=== PATIENT | female | born 1990 | race African-American/Black ===

== ENCOUNTER 2023-10-30 12:27 | Outpatient (OUT) | payer MEDICAID, SELFPAY ==
--- NOTE | 2023-10-30 12:31 | US_ITS ---
The [address] [address] Patient Name: FABRIZIO PAINTING MRN: [id number] date: 1990 Sex: F Assigned Patient Location: [facility] Current Patient Location: [facility] Accession/Order Number: [id number] Exam Date: 10/30/2023 12:31 Report Date: 10/30/2023 16:24 At the request of: MELISSA CLARK Procedure: US OB transvaginal EXAMINATION: US OB transvaginal HISTORY: MISSED MENSES COMPARISON: No relevant comparison available. FINDINGS: GESTATIONAL SAC: Present and normal appearing. YOLK SAC: Present and normal appearing. POLE: Present and normal appearing. CARDIAC: Present. UTERUS: Normal size and appearance. OVARIES: Right: Normal. Left: Corpus lutein cyst versus simple cyst. CERVIX: 4.0 cm in length and closed. CUL-DE-SAC: Normal. OTHER: None. AGE BY LMP: 9 weeks 4 days DARLENE BY LMP: 05/30/2024 AGE BY US CRL: 8 weeks 4 days DARLENE BY US CRL: 06/06/2024 US/US OB transvaginal IMPRESSION: 1. Single live intrauterine . Electronically authenticated by: FAM PHELPS Date: 10/30/2023 16:24
== END 2023-10-30 12:28 | disposition home or self-care (01) ==
LOC: NOMS 12:28
PROVIDERS: Visit Provider Obstetrics & Gynecology
DX: Z34.91 Encounter for supervision of normal pregnancy, unspecified, first trimester (principal); Z3A.08 8 weeks gestation of pregnancy; N92.6 Irregular menstruation, unspecified
CPT/HCPCS: 76817

== ENCOUNTER 2023-11-12 13:18 | Outpatient (OUT) | payer MEDICAID, SELFPAY ==
--- OUTSIDE RECORDS SUMMARY | 2023-11-12 13:34 | XMS_ITS | CCD ---
Author Organization [facility] Care Team Providers Care Soda Dialyzer Name Role Phone Agustin Patton Unavailable Unavailable Agustin Patton Unavailable Unavailable Bayron Mccarty Unavailable Unavailable Unavailable Unavailable Unavailable Unavailable Unavailable Unavailable [facility] Primary Care Provider [phone] DEMETRIUS [address] Emergency Provider DR MELISSA CLARK Attending Unavailable DR MELISSA CLARK Consulting Unavailable DR MELISSA CLARK Admitting Unavailable [facility] Primary Care Provider [phone] Anabella [facility] Marychuy E Emergency Provider Nicholas Michaels Unavailable [facility] Primary Care Provider [phone] DO Nicholas Michaels Attending Provider Unavailable Primary Care Provider Unavailabl e Unavailable Primary Care Provider Unavailabl LATONIA Thomas Attending Unavailable TONYA SENIOR Attending Unavailable [facility] Primary Care Provider [phone] Anabella [facility] Marychuy E Emergency Provider Bullsariah Marychuy Amada Attending Unavailable Bullimore, Marychuy Amada Admitting Unavailable [facility] Primary Care Unavaila Nicholas Willams Admitting Unavailable [facility] Primary Care Unavaila Nicholas Willams Attending Unavailable LATONIA GREENE Referring Unavailable LATONIA GREENE Attending Unavailable ANNA ORTIZ Attending Unavailable TONYA SENIOR Referring Unavailable TONYA SENIOR Referring Unavailable Medications Current Medications Medication Drug Class(es) Dates Sig (Normalized) Sig (Original) cholecalciferol 1.25 mg oral capsule (4 sources) Vitamin D Start: 09-23-2023 take 1 capsule by mouth every week cholecalciferol, Vitamin D3, (VITAMIN D3) 1,250 mcg (50,000 unit) cap capsule Indications: Vitamin D deficiency Take 1 capsule by mouth one time a week. 12 capsule 1 09/23/2023 Active Start: 2020 Vitamin D 25 M CG (1000 UT) Oral Tablet Refills: 0 DO Start : 13-Mar-2020 Active Marianna (No Known Home Meds) (3 sources) Start: 10-06-2023 Marianna (No Kn own Home Meds) Active October 06, 2023 12:00am Start: 06-18-2022 Marianna (No Kn own Home Meds) Active June 18, 2022 12:00am Completed/Discontinued Medications Medication Drug Class(es) Dates Sig (Normalized) Sig (Original) acetaminophen 325 mg / oxyCODONE hydrochloride 5 mg oral tablet (5 sources) Opioid Agonist Start: 0 End: 1 take 1 tablet by mouth every four to six hours Oxycodone-Acetamino phen (Percocet) 5-325 mg tablet Discontinued 1 - 2 TAB PO EVERY 4-6 HOURS 14 July 20, 2019 July 28, 2020 7:27pm amoxicillin 500 mg oral tablet (5 sources) Penicillin-class Antibacterial Start: 2 End: 2 take 500 mg by mouth twice daily Amoxicillin Discontinued 500 MG PO Twice daily 28 02July 08, 2021 1:00am December 02, 2021 8:17pm amoxicillin 875 mg / clavulanate 125 mg oral tablet (5 sources) Penicillin-class Antibacterial Start: 2 End: 3 take 1 tablet by mouth twice daily Amoxicillin-Pot Clavulanate Discontinued 1 TAB PO Twice daily December 02, 2021 12:00am June 18, 2022 5:53pm brompheniramine maleate 0.4 mg/ml / dextromethorphan hydrobromide 2 mg/ml / pseudoephedrine hydrochloride 6 mg/ml oral solution (5 sources) alpha-Adrenergic Agonist, Uncompetitive L-qizpmn-Z-asparta te Receptor Antagonist, Sigma-1 Agonist Start: 2 End: 3 take 1 mL by mouth four times daily Brompheniramine-Pse udoeph-Dm (Bromfed Dm) 2-30-10 mg/5 mL syrup Discontinued 5 ML PO Four times daily December 02, 2021 12:00am June 18, 2022 5:53pm 0.5 ml choriogonadotropin juliana 0.5 mg/ml prefilled syringe (2 sources) Gonadotropin Start: 1 Ovidrel 250 MCG/0.5ML Subcutaneous Injectable INJECT SUBCUTANEOUSLY DIRECTED. Quantity: 1 Refills: 2 Bayron Mccarty MD Start : 19-Jun-2020 Active 0.5 ML Syringe cyclobenzaprine hydrochloride 10 mg oral tablet (5 sources) Muscle Relaxant Start: 7 End: 7 take 10 mg by mouth three times daily Cyclobenzaprine Discontinued 10 MG PO Three times daily 9 May 02, 2017 1:00am May 05, 2017 1:03am ibuprofen 800 mg oral tablet (15 sources) Nonsteroidal Anti-inflammatory Drug Start: 2 End: 2 take 800 mg by mouth every six hours Ibuprofen Discontinued 800 MG PO Q6H July 08, 2021 1:00am December 02, 2021 8:17pm Start: 07-20-2019 End: 07-28-2020 Ibuprofen Discontinued 600 M G PO EVERY 4-6 HOURS 28 11July 20, 2019 12:00am July 28, 2020 7:27pm do not exceed 4 doses in a 24 hour period Start: 05-02-2017 End: 05-07-2017 take 800 mg by mouth three times daily Ibuprofen Discontinued 800 MG PO Three times daily 15 May 02, 2017 1:00am May 07, 2017 1:02am labetalol hydrochloride 100 mg oral tablet (5 sources) beta-Adrenergic Foster Start: 12-31-2020 End: 07-04-2021 Labetalol Discontinued MG TABLET Twice daily December 31, 2020 12:00am July 04, 2021 10:48am letrozole 2.5 mg oral tablet (2 sources) Aromatase Inhibitor Start: 06-19-2020 take 1 tablet by mouth once daily, then take 3-7 tablets by mouth Letrozole 2.5 MG Oral Tablet TAKE 1 TABLET CYCLE DAY 3-7 after a negative home test as directed by your physician. Quantity: 5 Refills: 2 Bayron Mccarty MD Start : 19-Jun-2020 Active levothyroxine sodium 0.05 mg oral tablet (5 sources) l-Thyroxine Start: 05-11-2019 End: 07-28-2020 take 50 ug by mouth once daily Levothyroxine Discontinued 50 MCG PO Daily May 11, 2019 1:00am July 28, 2020 7:27pm omeprazole 20 mg delayed release oral tablet (5 sources) Proton Pump Inhibitor Start: 05-11-2019 End: 05-11-2019 take 1 tablet by mouth once daily Omeprazole Magnesium (Prilosec Otc) 20 mg Tablet,Delayed Release (Dr/Ec) Discontinued 20 MG PO Daily May 11, 2019 1:00am May 11, 2019 2:27am phentermine hydrochloride 37.5 mg oral tablet (15 sources) Sympathomimetic Amine Anorectic Start: 08-07-2023 End: 10-06-2023 take 37.5 mg by mouth once daily Phentermine Discontinued 37.5 MG PO Daily August 07, 2023 12:00am October 06, 2023 5:42pm Start: 06-13-2023 take 1 tablet by vidhya th once daily before breakfast Phentermine HCl 37.5 MG 1 tablet before breakfast Orally Once a day for 30 days Jun, Active Start: 01-08-2023 take 1 tablet by vidhya th once daily before breakfast Phentermine HCl 37.5 MG 1 tablet before breakfast Orally Once a day for 30 days Dec, Active Start: 06-25-2019 End: 07-28-2020 take 1 tablet by mouth once daily Phentermine (Adipex-P) 37.5 mg Tablet Discontinued 37.5 MG PO Daily 0 June 26, 2019 12:58pm July 28, 2020 7:27pm Hadwljgy-Eai-Pl-Fa () 1 mg Tablet (5 sources) Start: 12-31-2020 End: 07-04-2021 take 1 tablet by mouth once Qgtozjhr-Oaq-Qz-Fa () 1 mg Tablet Discontinued TAB PO December 30, 2020 11:00pm July 04, 2021 9:48am Start: 12-31-2020 End: 07-04-2021 take 1 tablet by mouth once Nwogtzfi-Kam-Ia-F a () 1 mg Tablet Discontinued TAB PO December 31, 2020 12:00am July 04, 2021 10:48am progesterone 100 mg oral capsule (7 sources) Progesterone Start: 07-28-2020 End: 12-31-2020 Progesterone Micronized Discontinued 100 MG VAGINAL Twice daily July 28, 2020 12:00am December 31, 2020 9:55am Start: 06-19-2020 take 1 capsule by mo [facility] twice daily Progesterone Micronized 100 MG Oral Capsule TAKE 1 CAPSULE Twice daily insert capsules vaginally Quantity: 30 Refills: 3 Bayron Mccarty MD Start : 19-Jun-2020 Active sennosides, group home 8.6 mg oral tablet (1 source) take 4 tablets by [facility] every twenty-four hours Senna 8.6 MG 4 tablets as needed Orally Once a day Not-Taking/PRN Problems Active Problems Problem Classification Problem Date Documented Date Episodic/Chronic Abdominal pain (15 sources) Nonspecific abdominal pain; Translations: [Unspecified abdominal pain] 08-20-2020 Episodic Acute and chronic tonsillitis (5 sources) Acute tonsillitis; Translations: [Acute tonsillitis, unspecified] 07-08-2021 Episodic Acute bronchitis (5 sources) Acute bacterial bronchitis; Translations: [Acute bronchitis due to other specified organisms] 12-02-2021 Episodic Anxiety disorders (1 source) Anxiety disorder, unspecified; Translations: [Anxiety disorder, unspecified type] Onset: 10-09-2023 Chronic Biliary tract disease (5 sources) Biliary calculus; Translations: [Calculus of gallbladder and bile duct without cholecystitis without obstruction] 06-25-2019 Episodic Disorders of lipid metabolism (15 sources) Dyslipidemia; Translations: [Hyperlipidemia, unspecified] Onset: 08-20-2023 Chronic Female infertility (3 sources) Female infertility; Translations: [Female infertility] Chronic Gastritis and duodenitis (5 sources) Gastritis; Translations: [Gastritis, unspecified, without bleeding] 05-11-2019 Episodic Hemorrhage during ; abruptio placenta; placenta previa (7 sources) Bleeding from female genital tract during ; Translations: [Antepartum hemorrhage, unspecified, unspecified trimester] 08-27-2020 Episodic Immunizations and screening for infectious disease (1 source) Encounter for screening for human papillomavirus (HPV); Translations: [ENC SCREENING HUMAN PAPILLOMAVIRUS] Onset: 06-05-2022 Episodic Menstrual disorders (3 sources) Irregular periods; Translations: [Irregular menses] Chronic Miscellaneous mental health disorders (1 source) Psychological and behavioral factors associated with disorders or diseases classified elsewhere; Translations: [Psychological factors affecting medical condition] Onset: 10-09-2023 Chronic Nausea and vomiting (5 sources) Nausea and vomiting; Translations: [Nausea with vomiting, unspecified] 06-25-2019 Episodic Nonspecific chest pain (5 sources) Atypical chest pain; Translations: [Other chest pain] 06-03-2019 Episodic Nutritional deficiencies (1 source) Vitamin D deficiency; Translations: [Vitamin D deficiency, unspecified] 09-23-2023 Chronic Other complications of (5 sources) Abdominal pain in ; Translations: [Other specified related conditions, unspecified trimester] 07-28-2020 Episodic Other complications of (5 sources) Complication of , childbirth and/or the puerperium; Translations: [Other specified related conditions, unspecified trimester] 07-31-2020 Episodic Other endocrine disorders (2 sources) Polycystic ovarian syndrome; Translations: [PCOS (polycystic ovarian syndrome)] Chronic Other non-traumatic joint disorders (6 sources) Shoulder joint pain; Translations: [Pain in unspecified shoulder] Onset: 08-20-2023 08-20-2023 Episodic Other nutritional; endocrine; and metabolic disorders (5 sources) Morbid obesity; Translations: [Morbid (severe) obesity due to excess calories] Chronic Other nutritional; endocrine; and metabolic disorders (6 sources) Morbid (severe) obesity due to excess calories; Translations: [Morbid obesity] Onset: 10-09-2023 Chronic Other nutritional; endocrine; and metabolic disorders (11 sources) Body mass index 40+ - severely obese; Translations: [Morbid (severe) obesity due to excess calories] Onset: 08-20-2023 08-06-2023 Chronic Other nutritional; endocrine; and metabolic disorders (1 source) Body mass index (BMI) 50.0-59.9, adult; Translations: [Body mass index (BMI) of 50-59.9 in adult (HCC)] Onset: 08-20-2023 Chronic Other and delivery including normal (5 sources) Intrauterine ; Translations: [Encounter for supervision of normal , unspecified, unspecified trimester] 10-21-2020 Episodic Other screening for suspected conditions (not mental disorders or infectious disease) (4 sources) Encounter for screening for malignant neoplasm of cervix; Translations: [ENC SCREENING MALIG NEOPLASM CERV] Onset: 06-03-2022 Episodic Other upper respiratory infections (9 sources) Pharyngitis; Translations: [Acute pharyngitis, unspecified] 07-04-2021 Episodic Sprains and strains (5 sources) Low back strain; Translations: [Strain of muscle, fascia and tendon of lower back, initial encounter] 05-02-2017 Episodic Thyroid disorders (8 sources) Angel thyroiditis; 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 08-20-2023 Chronic Unclassified (1 source) NO SHOW 09-01-2023 Past or Other Problems Problem Classification Problem Date Documented Da te Episodic/Chronic Administrative/social admission (12 sources) Dietary counseling and surveillance; Translations: [Other specified counseling] Onset: 06-13-2023 Episodic Unclassified (14 sources) Patient encounter status; Translations: [Infertility counseling] Unclassified (3 sources) History finding; Translations: [No pertinent past medical history] NEGATED: Highlighted row has not occurred!Residual codes; unclassified (18 sources) Disease Episodic Results Test Name Value Interpretation Reference Range Facility Alanine aminotransferase [En zymatic activity/volume] in Serum or PlasmaOrdered By: Marychuy Kyle on 10-06-2023 ALT [Catalytic activity/Vol] 13 U/L Normal 7-52 [facility] Comment on above: Performed By: #### C ADRIANA, CMP, HCGQNT #### [address] Albumin [Mass/volume] in Ser um or Plasma by Bromocresol green (BCG) dye binding methoOrdered By: Marychuy Kyle on 10-06-2023 Albumin BCG dye [Mass/Vol] 3.8 g/dL 3.5-5.7 [facility] Alkaline phosphatase [Enzyma tic activity/volume] in Serum or PlasmaOrdered By: Marychuy Kyle on 10-06-2023 ALP [Catalytic activity/Vol] 61 U/L Normal 34-104 [facility] Comment on above: Performed By: #### C BC, CMP, HCGQNT #### [address] Aspartate aminotransferase [ Enzymatic activity/volume] in Serum or PlasmaOrdered By: Marychuy Bullimore on 10-06-2023 AST [Catalytic activity/Vol] 13 U/L Normal 13-39 [facility] Comment on above: Performed By: #### C BC, CMP, HCGQNT #### [address] Automated basophil %Ordered By: Marychuy Bullimore on 10-06-2023 Basophils/100 WBC (Bld) 0.6 % Normal . [facility] Comment on above: Performed By: #### C BC, CMP, HCGQNT #### [address] Automated basophil countOrde red By: Marychuy Bullimore on 10-06-2023 Basophils (Bld) [#/Vol] 0.0 10*3/uL Normal 0.0-0.2 [facility] Comment on above: Result Comment: PERF ORMED BY: [place] [address] PATHOLOGIST FOIL STAMP OPERATOR LION STANLEY M.D. Performed By: #### C BC, CMP, HCGQNT #### [address] Automated blood monocyte cou ntOrdered By: Marychuy Bullimore on 10-06-2023 Monocytes (Bld) [#/Vol] 0.5 10*3/uL Normal 0.0-0.8 [facility] Comment on above: Performed By: #### C BC, CMP, HCGQNT #### [address] Automated eosinophil %Ordere d By: Marychuy Bullimore on 10-06-2023 Eosinophils/100 WBC (Bld) 0.7 % Normal . [facility] Comment on above: Performed By: #### C BC, CMP, HCGQNT #### [address] Automated eosinophil countOr dered By: Marychuy Phaniimore on 10-06-2023 Eosinophils (Bld) [#/Vol] 0.1 10*3/uL Normal 0.0-0.45 [facility] Comment on above: Performed By: #### C BC, CMP, HCGQNT #### [facility] [address] Automated epithelial cells c ount in urine sediment (number/area)Ordered By: Marychuy Bullimore on 10-06-2023 Epithelial cells Auto (Urine sed) [#/Area] 3-4 [HPF] 0-2 [facility] Automated monocyte %Ordered By: Marychuy Bullimore on 10-06-2023 Monocytes/100 WBC (Bld) 6.7 % Normal . [facility] Comment on above: Performed By: #### C BC, CMP, HCGQNT #### [facility] [address] [place] [address] Automated neutrophil %Ordere d By: Marychuy Bullimore on 10-06-2023 Neutrophils/100 WBC (Bld) 54.4 % Normal . [facility] Comment on above: Performed By: #### C BC, CMP, HCGQNT #### [facility] [address] [place] [address] Bacteria [Presence] in Urine by AutomatedOrdered By: Marychuy Bullimore on 10-06-2023 Bacteria Auto Ql (U) None seen [HPF] None Seen [facility] Bilirubin Test strip Ql (U)O rdered By: Marychuy Bullimore on 10-06-2023 Bilirubin Ql (U) Negative Negative [facility] Bilirubin.total [Mass/volume ] in Serum or PlasmaOrdered By: Marychuy Bullimore on 10-06-2023 Bilirubin [Mass/Vol] 0.2 mg/dL Low 0.3-1.0 [facility] Comment on above: Performed By: #### C BC, CMP, HCGQNT #### [facility] [address] [place] [address] Calcium [Mass/volume] in Ser um or PlasmaOrdered By: Marychuy Bullimore on 10-06-2023 Calcium [Mass/Vol] 9.4 mg/dL Normal 8.6-10.3 [facility] Comment on above: Performed By: #### C BC, CMP, HCGQNT #### [facility] [address] Carbon dioxide, total [Moles /volume] in Serum or PlasmaOrdered By: Marychuy Bullimore on 10-06-2023 CO2 [Moles/Vol] 25.5 mmol/L Normal 21.0-31.0 [facility] Comment on above: Performed By: #### C BC, CMP, HCGQNT #### [facility] [address] Chloride [Moles/volume] in S sondra or PlasmaOrdered By: Marychuy Bullimore on 10-06-2023 Chloride [Moles/Vol] 105 mmol/L Normal 98-107 [facility] Comment on above: Performed By: #### C BC, CMP, HCGQNT #### [address] Choriogonadotropin.beta subu nit [Units/volume] in Serum or PlasmaOrdered By: Marychuy Kyle on 10-06-2023 HCG.beta subunit Qn 2799.00 m[IU]/mL [facility] Comment on above: Approximate Approxim ate hCG Gestational Age Range (mIU/ml) (weeks)0.2-1 5-50 1-2 50-500 2-3 100-5,000 3-4 500-10,000 4-5 1,000-50,000 5-6 10,000-100,000 6-8 15,000-200,000 8-12 10,000-100,000 Color of Urine by AutoOrdere d By: Marychuy Kyle on 10-06-2023 Color (U) Yellow Normal Yellow [facility] Comment on above: Order Comment: NEED MORE SPECIMEN Name Collection Type:: Clean-Voided Midstream Performed By: #### A DDONUAPLUS #### [address] Complete Blood Count Auto Di ffon 10-06-2023 Mean Corpuscular HGB Conc 34.4 g/dL Normal 32.0-35.0 [facility] Comment on above: Performed By: #### C BC, CMP, HCGQNT #### [address] Monocytes/100 WBC (Bld) 17.37 % Normal 0.00-20.00 [facility] Comment on above: Performed By: #### C BC, CMP, HCGQNT #### [address] NRBC% 0.2 /100{WBC} Normal 0-0.5 [facility] Comment on above: Performed By: #### C BC, CMP, HCGQNT #### [address] Comprehensive Metabolic Pane panchito 10-06-2023 Albumin [Mass/Vol] 3.8 g/dL Normal 3.5-5.7 [facility] Comment on above: Performed By: #### C BC, CMP, HCGQNT #### [address] Creatinine Clr Calc Pharmacy 180.48 Normal [facility] Comment on above: Performed By: #### C BC, CMP, HCGQNT #### [address] GFR/1.73 sq M.predicted MDRD (S/P/Bld) [Vol rate/Area] mL/min/{1.73_m2} Normal [facility] Comment on above: Performed By: #### C BC, CMP, HCGQNT #### [address] Creatinine [Mass/volume] in Serum or PlasmaOrdered By: Marychuy Kyle on 10-06-2023 Creatinine [Mass/Vol] 0.63 mg/dL Normal 0.60-1.20 [facility] Comment on above: Performed By: #### C BC, CMP, HCGQNT #### [place] [address] [place] Dipstick and Microscopicon 0 10-06-2023 Appearance (U) Clear Normal Clear [facility] Comment on above: Order Comment: NEED MORE SPECIMEN Name Collection Type:: Clean-Voided Midstream Performed By: #### A DDONUAPLUS #### [address] [address] [place] Bacteria,Urine None Seen Normal None Seen [facility] Comment on above: Order Comment: NEED MORE SPECIMEN Name Collection Type:: Clean-Voided Midstream Performed By: #### A DDONUAPLUS #### [address] [address] [place] Bilirubin,Urine Negative Normal Negative [facility] Comment on above: Order Comment: NEED MORE SPECIMEN Name Collection Type:: Clean-Voided Midstream Performed By: #### A DDONUAPLUS #### [address] [address] [facility] Glucose Ql (U) Normal Normal Normal [facility] Comment on above: Order Comment: NEED MORE SPECIMEN Name Collection Type:: Clean-Voided Midstream Performed By: #### A DDONUAPLUS #### [place] [address] [place] Hyaline Casts,Urine 0-8 Normal 0-8 [facility] Comment on above: Order Comment: NEED MORE SPECIMEN Name Collection Type:: Clean-Voided Midstream Result Comment: PERF ORMED BY: [place] [address] PATHOLOGIST FOIL STAMP OPERATOR LION STANLEY M.D. Performed By: #### A DDONUAPLUS #### [place] [address] [place] Ketones Ql (U) Negative Normal Negative [facility] Comment on above: Order Comment: NEED MORE SPECIMEN Name Collection Type:: Clean-Voided Midstream Performed By: #### A DDONUAPLUS #### [place] [id number] [place] Leukocyte esterase Test strip Ql (U) 1+ High Negative [facility] Comment on above: Order Comment: NEED MORE SPECIMEN Name Collection Type:: Clean-Voided Midstream Performed By: #### A DDONUAPLUS #### [place] [address] [place] Nitrite,Urine Negative Normal Negative [facility] Comment on above: Order Comment: NEED MORE SPECIMEN Name Collection Type:: Clean-Voided Midstream Performed By: #### A DDONUAPLUS #### [place] [address] [place] Occult Blood,Urine Negative Normal Negative [facility] Comment on above: Order Comment: NEED MORE SPECIMEN Name Collection Type:: Clean-Voided Midstream Result Comment: PERF ORMED BY: [place] [address] PATHOLOGIST FOIL STAMP OPERATOR LION STANLEY M.D. Performed By: #### A DDONUAPLUS #### [place] [address] [place] Protein,Urine Negative Normal Negative [facility] Comment on above: Order Comment: NEED MORE SPECIMEN Name Collection Type:: Clean-Voided Midstream Performed By: #### A DDONUAPLUS #### [place] [address] [place] RBC LM.HPF (Urine sed) [#/Area] 0 /[HPF] Normal 0-4 [facility] Comment on above: Order Comment: NEED MORE SPECIMEN Name Collection Type:: Clean-Voided Midstream Performed By: #### A DDONUAPLUS #### [place] [address] [place] Specificy [place],Urine 1.017 Normal 1.001-1.030 [facility] Comment on above: Order Comment: NEED MORE SPECIMEN Name Collection Type:: Clean-Voided Midstream Performed By: #### A DDONUAPLUS #### [place] [address] [place] Squamous Epithelial Cell,Urine 3-4 High 0-2 [facility] Comment on above: Order Comment: NEED MORE SPECIMEN Name Collection Type:: Clean-Voided Midstream Performed By: #### A DDONUAPLUS #### [address] Urobilinogen,Urine Normal Normal Normal [facility] Comment on above: Order Comment: NEED MORE SPECIMEN Name Collection Type:: Clean-Voided Midstream Performed By: #### A DDONUAPLUS #### [address] WBC,Urine 3-4 Normal 0-4 [facility] Comment on above: Order Comment: NEED MORE SPECIMEN Name Collection Type:: Clean-Voided Midstream Performed By: #### A DDONUAPLUS #### [address] Erythrocyte distribution wid th [Ratio] by Automated countOrdered By: Marychuy Kyle on 10-06-2023 Erythrocyte distribution width (RBC) [Ratio] 13.4 % Normal 11.9-15.3 [facility] Comment on above: Performed By: #### C BC, CMP, HCGQNT #### [address] Erythrocytes [#/area] in Uri ne sediment by Automated countOrdered By: Marychuy Kyle on 10-06-2023 RBC Auto (Urine sed) [#/Area] 0-1 [HPF] 0-4 [facility] Erythrocytes [#/volume] in B lood by Automated countOrdered By: Marychuy Kyle on 10-06-2023 RBC (Bld) [#/Vol] 4.08 10*6/uL Normal 3.60-5.00 [facility] Comment on above: Performed By: #### C BC, CMP, HCGQNT #### [address] Glucose [Mass/volume] in Ser um or PlasmaOrdered By: Marychuy Kyle on 10-06-2023 Glucose [Mass/Vol] 100 mg/dL Normal 70-100 [facility] Comment on above: ADA recommended refe rence rangeRandom Glucose Reference Range is dependent on time and content of last meal. Glucose of more than 200 mg/dL in a nonstressed, ambulatory subject supports the diagnosis of Diabetes Mellitus. Result Comment: [place] Glucose Reference Range is dependent on time and content of last meal. Glucose of more than 200 mg/dL in a nonstressed, ambulatory subject supports the diagnosis of Diabetes Mellitus. ADA recommended reference range Performed By: #### C BC, CMP, HCGQNT #### [address] HCG,Quantitativeon HCG,Quantitative 2799.00 m[iU]/mL Normal [facility] e [facility] Comment on above: Result Comment: Appr oximate Approximate hCG Gestational Age Range (mIU/ml) (weeks) 0.2-1 5-50 1-2 50-500 2-3 100-5,000 3-4 500-10,000 4-5 1,000-50,000 5-6 10,000-100,000 6-8 15,000-200,000 8-12 10,000-100,000 PERFORMED BY: [place] [address] PATHOLOGIST FOIL STAMP OPERATOR LION STANLEY M.D. Performed By: #### C BC, CMP, HCGQNT #### [address] Hematocrit [Volume Fraction] of Blood by Automated countOrdered By: Marychuy Kyle on 10-06-2023 Hematocrit (Bld) [Volume fraction] 36.7 % Normal 34.0-46.4 [facility] Comment on above: Performed By: #### C BC, CMP, HCGQNT #### [address] Hemoglobin [Mass/volume] in BloodOrdered By: Marychuy Kyle on 10-06-2023 Hemoglobin (Bld) [Mass/Vol] 12.6 g/dL Normal 11.8-15.4 [facility] Comment on above: Performed By: #### C BC, CMP, HCGQNT #### [address] Ketones Auto test strip (U) [Mass/Vol]Ordered By: Marychuy Kyle on 10-06-2023 Ketones (U) [Mass/Vol] Negative Negative [facility] - UrinalysisOrder ed By: Marychuy Kyle on 10-06-2023 Hyaline casts LM Ql (Urine sed) 0-8 [LPF] 0-8 [facility] Leukocytes [#/area] in Urine sediment by Automated countOrdered By: Marychuy Kyle on 10-06-2023 WBC Auto (Urine sed) [#/Area] 3-4 [HPF] 0-4 [facility] Leukocytes [#/volume] correc inocencia for nucleated erythrocytes in Blood by Automated counOrdered By: Marychuy Kyle on 10-06-2023 WBC corrected for nucl RBC Auto (Bld) [#/Vol] 7.4 10*3/uL 3.8-11.6 [facility] Leukocytes [#/volume] in Blo od by Automated countOrdered By: Marychuy Kyle on 10-06-2023 WBC (Bld) [#/Vol] 7.4 10*3/uL Normal 3.8-11.6 [facility] Comment on above: Performed By: #### C BC, CMP, HCGQNT #### [facility] [address] [place] [address] [place] Lymphocytes [#/volume] in Bl ood by Automated countOrdered By: Marychuy Kyle on 10-06-2023 Lymphocytes (Bld) [#/Vol] 2.8 10*3/uL Normal 1.00-4.8 [facility] Comment on above: Performed By: #### C BC, CMP, HCGQNT #### [facility] [address] [place] [address] [place] Lymphocytes/100 leukocytes i n Blood by Automated countOrdered By: Marychuymargaux Kyle on 10-06-2023 Lymphocytes/100 WBC (Bld) 37.6 % Normal . [facility] Comment on above: Performed By: #### C BC, CMP, HCGQNT #### [facility] [address] [place] [address] [place] MCH [Entitic mass] by Automa inocencia countOrdered By: Marychuy Kyle on 10-06-2023 MCH (RBC) [Entitic mass] 31.0 pg Normal 24.7-34.3 [facility] Comment on above: Performed By: #### C BC, CMP, HCGQNT #### [facility] [address] [place] [address] MCHC Auto (RBC) [Mass/Vol]Or dered By: Marychuy Jeronimoimore on 10-06-2023 MCHC (RBC) [Mass/Vol] 34.4 g/dL 32.0-35.0 [facility] MCV [Entitic volume] by Auto mated countOrdered By: Marychuy Kyle on 10-06-2023 MCV (RBC) [Entitic vol] 90.1 fL Normal 80-100 [facility] Comment on above: Performed By: #### C BC, CMP, HCGQNT #### [facility] [address] [place] [address] Monocyte distribution width [Entitic volume] in Blood by AutomatedOrdered By: Marychuy Kyle on 10-06-2023 Monocyte distribution width Auto (Bld) [Entitic vol] 17.37 % 0.00-20.00 [facility] Neutrophils [#/volume] in Bl ood by Automated countOrdered By: Marychuy Kyle on 10-06-2023 Neutrophils (Bld) [#/Vol] 4.0 10*3/uL Normal 1.8-7.7 [facility] Comment on above: Performed By: #### C BC, CMP, HCGQNT #### [facility] [address] [place] [address] Nitrite Test strip Ql (U)Ord ered By: Marychuy Kyle on 10-06-2023 Nitrite Ql (U) Negative Negative [facility] No Panel InformationOrdered By: Marychuy Kyle on 10-06-2023 Estimated GFR (CKD-EPI) > 60.0 mL/Min [facility] Creatinine Clearance (Chem 180.48 [facility] Nucleated erythrocytes [Pres ence] in Blood by Automated countOrdered By: Marychuy Kyle on 10-06-2023 Nucleated RBC Auto Ql (Bld) 0.2 /100{WBC} 0-0.5 [facility] Platelet mean volume [Entiti c volume] in Blood by Automated countOrdered By: Marychuy Wangore on 10-06-2023 Platelet mean volume (Bld) [Entitic vol] 7.5 fL Normal 6.3-10.7 [facility] Comment on above: Performed By: #### C BC, CMP, HCGQNT #### [address] Platelets [#/volume] in Bloo d by Automated countOrdered By: Marychuy Wangore on 10-06-2023 Platelets (Bld) [#/Vol] 367 10*3/uL Normal 150-450 [facility] Comment on above: Performed By: #### C BC, CMP, HCGQNT #### [address] Potassium [Moles/volume] in Serum or PlasmaOrdered By: Marychuy Wangore on 10-06-2023 Potassium [Moles/Vol] 4.1 mmol/L Normal 3.5-5.1 [facility] Comment on above: Performed By: #### C BC, CMP, HCGQNT #### [address] Protein Auto test strip (U) [Mass/Vol]Ordered By: Marychuy Kyle on 10-06-2023 Protein (U) [Mass/Vol] Negative Negative [facility] Protein [Mass/volume] in Ser um or PlasmaOrdered By: Marychuy Wangore on 10-06-2023 Protein [Mass/Vol] 7.4 g/dL Normal 6.4-8.9 [facility] Comment on above: Performed By: #### C BC, CMP, HCGQNT #### [address] Serum globulin measurement b y calculation (mass/volume)Ordered By: Marychuy Kyle on 10-06-2023 Globulin (S) [Mass/Vol] 3.6 g/dL Normal [facility] Comment on above: Performed By: #### C BC, CMP, HCGQNT #### [address] [place] [address] [place] Serum or plasma albumin/glob ulin mass ratioOrdered By: Marychuy Kathleenore on 10-06-2023 Albumin/Globulin [Mass ratio] 1.1 {ratio} Normal [facility] Comment on above: Performed By: #### C BC, CMP, HCGQNT #### [address] Serum or plasma anion gap de terminationOrdered By: Marychuy Phaniimdianne on 10-06-2023 Anion gap [Moles/Vol] 12.6 mmol/L Normal 6.0-15.0 [facility] Comment on above: Performed By: #### C BC, CMP, HCGQNT #### [address] Sodium [Moles/volume] in Ser um or PlasmaOrdered By: Marychuy Wangore on 10-06-2023 Sodium [Moles/Vol] 139 mmol/L Normal 136-145 [facility] Comment on above: Performed By: #### C BC, CMP, HCGQNT #### [address] Specific gravity Auto test s trip (U) [Rel density]Ordered By: Marychuy Kyle on 10-06-2023 Specific gravity (U) [Rel density] 1.017 1.001-1.030 [facility] Urea nitrogen [Mass/volume] in Serum or PlasmaOrdered By: Marychuy Kyle on 10-06-2023 Urea nitrogen [Mass/Vol] 7 mg/dL Normal 7-25 [facility] Comment on above: Performed By: #### C BC, CMP, HCGQNT #### [address] Urine clarity by refractomet ry automatedOrdered By: Marychuy Kyle on 10-06-2023 Clarity Refractometry automated (U) Clear Clear [facility] Urine glucose measurement by automated test strip (mass/volume)Ordered By: Marychuy Kyle on 10-06-2023 Glucose Auto test strip (U) [Mass/Vol] Normal mg/dL Normal [facility] Urine hemoglobin detection b y automated test stripOrdered By: Marychuy Kyle on 10-06-2023 Hemoglobin Auto test strip Ql (U) Negative Negative [facility] Urine leukocyte esterase det ection by automated test stripOrdered By: Marychuy Kyle on 10-06-2023 Leukocyte esterase Auto test strip Ql (U) 1+ Negative [facility] Urine pH measurement by auto mated test stripOrdered By: Marychuy Kyle on 10-06-2023 pH (U) 7.0 [pH] Normal 5.0-9.0 [facility] Comment on above: Order Comment: NEED MORE SPECIMEN Name Collection Type:: Clean-Voided Midstream Performed By: #### A DDONUAPLUS #### [address] Urobilinogen Auto test strip (U) [Mass/Vol]Ordered By: Marychuy Kyle on 10-06-2023 Urobilinogen (U) [Mass/Vol] Normal mg/dL Normal [facility] Basia 09-11-2023 LIZ Telephone (MARTIN) -------- JALEESA PAINTING ([id number]) 1990 F Date Time Provider Department 09/11/23 TONYA SENIOR During your visit today, we recorded the following information about you: Tonya Senior APRN.CNP 09/11/2023 11:19 AM Signed Attempted to call pt, re: hypothyroid and low vitamin d levels, no answer, left vm. Tonya Senior APRN.Meme Kauffman 09/22/2023 9:36 AM Signed ----- Message from Anna Ortiz RD sent at 09/17/2023 3:17 PM EDT ----- Regarding: virtual follow up Please schedule for a virtual up 10/16 at 1. The patient is aware, no call needed. Thank you! Meme Hernandez 09/22/2023 9:38 AM Signed Can not schedule patient as there is already a patient scheduled for that day and time. Please advise. Thanks Meme Crowe 09/26/2023 8:15 AM Signed Per staff encounter from Anna. Called patient and LVM to call our office back to schedule an appointment with Anna on or around 10/17/2023 for a VV. Please assist with scheduling once patient calls back. Thanks Meme Crowe 09/29/2023 8:37 AM Signed 2nd attempt. Called patient and LVM to call our office back to schedule. Thanks Meme Castrejon Allergies As of Date: 09/11/2023 (Not on File) Date Reviewed: 08/20/2023 Reviewed by: Tonya Senior APRN.DYNAMOMETER TESTER - Fully Assessed Reason for Visit: Results [95] Primary Visit Diagnosis:Vitamin D deficiency [E55.9] Order(s):cholecalciferol , Vitamin D3, (VITAMIN D3) 1,250 mcg (50,000 unit) cap capsuleTake 1 capsule by mouth one time a week.Disp: 12 capsuleRfl: 1 Prescriptions as of 10/01/2023 - cholecalciferol, Vitamin D3, (VITAMIN D3) 1,250 mcg (50,000 unit) cap capsule Take 1 capsule by mouth one time a week. 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 Encounter Status:Closed by TONYA SENIOR on 09/23/23 Normal [facility] NICOTINE AND METAB, URon URIN ANABASINE QUANT <5 Normal [facility] Comment on above: Order Comment: Speci men Type: URINE SPECIMEN Ordering Facility: [facility] Address: [address] [place] [address] Performed By: #### U NICOT #### [facility] CLIA [id number] [address] [place] [address] URIN COTININE QUANT <15 Normal [facility] Comment on above: Order Comment: Speci men Type: URINE SPECIMEN Ordering Facility: [facility] Address: [address] [place] [address] Performed By: #### U NICOT #### [facility] CLIA [id number] [address] [place] [address] URIN NICOTINE QUANT <15 Normal [facility] Comment on above: Order Comment: Speci men Type: URINE SPECIMEN Ordering Facility: [facility] Address: [address] [place] [address] Result Comment: INTE RPRETIVE INFORMATION: Nicotine and Metabolites, Urine, Quantitative Methodology: Quantitative Liquid Chromatography-Tandem Mass Spectrometry Positive cutoff: Nicotine 15 ng/mL Cotinine 15 ng/mL 0-JD-Tmqwojys 50 ng/mL Anabasine 5 ng/mL For medical purposes only; not valid for forensic use. This test is designed to evaluate recent use of nicotine-containing products. Passive and active exposure cannot be discriminated definitively, although a cutoff of 100 ng/mL cotinine is frequently used for surgery qualification purposes. For smoking cessation programs or compliance testing, the absence of expected drug(s) and/or drug metabolite(s) may indicate non-compliance, inappropriate timing of specimen collection relative to drug administration, poor drug absorption, diluted/adulterated urine, or limitations of testing. The concentration value must be greater than or equal to the cutoff to be reported as positive. Anabasine is included as a biomarker of tobacco use, versus nicotine replacement. Interpretive questions should be directed to the laboratory. This test was developed and its performance characteristics determined by [facility]. It has not been cleared or approved by the [place] Food and Drug Administration. This test was performed in a CLIA certified laboratory and is intended for clinical purposes. Performed By: [facility] [address] [place] [address] Preventive Maintenance Engineer: Rex Zuleta MD, PhD CLIA Number: [id number] Performed By: #### U NICOT #### [facility] CLIA [id number] [address] [place] [address] URINE 3 [place] COTININE <50 Normal [facility] Comment on above: Order Comment: Speci men Type: URINE SPECIMEN Ordering Facility: [facility] Address: [address] [place] [address] Performed By: #### U NICOT #### [facility] CLIA [id number] [address] [place] [address] TOXICOLOGY SCREEN, ROUTINE U RINEon 09-08-2023 Amphetamines Confirm (U) [Mass/Vol] Negative Normal Negative [facility] Comment on above: Order Comment: Speci men Type: URINE SPECIMEN Ordering Facility: [facility] Address: [address] [place] [address] Result Comment: Cuto ff threshold at 1000 ng/mL. Performed By: #### U TOX2 #### [facility] CLIA [id number] [address] [place] [address] [place] BARBITURATES, URINE Negative Normal Negative [facility] Comment on above: Order Comment: Speci men Type: URINE SPECIMEN Ordering Facility: [facility] Address: [address] [place] [address] Result Comment: Cuto ff threshold at 200 ng/mL. Performed By: #### U TOX2 #### [facility] CLIA [id number] [address] [place] [address] [place] BENZODIAZEPINES, UR Negative Normal Negative [facility] Comment on above: Order Comment: Speci men Type: URINE SPECIMEN Ordering Facility: [facility] Address: [address] [place] [address] Result Comment: Cuto ff threshold at 200 ng/mL. Performed By: #### U TOX2 #### [facility] CLIA [id number] [address] [place] [address] [place] Cannabinoids Screen Ql (U) Negative Normal Negative [facility] Comment on above: Order Comment: Speci men Type: URINE SPECIMEN Ordering Facility: [facility] Address: [address] [place] [address] Result Comment: Cuto ff threshold at 50 ng/mL. Performed By: #### U TOX2 #### [facility] CLIA [id number] [address] [place] [address] [place] Cocaine Ql (U) Negative Normal Negative [facility] Comment on above: Order Comment: Speci men Type: URINE SPECIMEN Ordering Facility: [facility] Address: [address] [place] [address] Result Comment: Cuto ff threshold at 300 ng/mL. Performed By: #### U TOX2 #### [facility] CLIA [id number] [address] [place] [address] [place] Ethanol (U) [Mass/Vol] <11 Normal <11 [facility] Comment on above: Order Comment: Speci men Type: URINE SPECIMEN Ordering Facility: [facility] Address: [address] [place] [address] Performed By: #### U TOX2 #### [facility] CLIA [id number] [address] [place] [address] [place] Opiates Screen Ql (U) Negative Normal Negative [facility] Comment on above: Order Comment: Speci men Type: URINE SPECIMEN Ordering Facility: [facility] Address: [address] [place] [address] Result Comment: Cuto ff threshold at 300 ng/mL. Performed By: #### U TOX2 #### [facility] CLIA [id number] [address] [place] [address] [place] oxyCODONE cutoff Screen (U) [Mass/Vol] Negative Normal Negative [facility] Comment on above: Order Comment: Speci men Type: URINE SPECIMEN Ordering Facility: [facility] Address: [address] [place] [address] Result Comment: Cuto ff threshold at 100 ng/mL. Performed By: #### U TOX2 #### [facility] CLIA [id number] [address] [place] [address] [place] Phencyclidine Ql (U) Negative Normal Negative [facility] Comment on above: Order Comment: Speci men Type: URINE SPECIMEN Ordering Facility: [facility] Address: [address] [place] [address] Result Comment: Cuto ff threshold at 25 ng/mL. Performed By: #### U TOX2 #### [facility] CLIA [id number] [address] [place] [address] [place] 25(OH)D3 SerPl-ncon 2023 25-hydroxyvitamin D3 [Mass/Vol] 11.9 ng/mL Low 31.0-80.0 [facility] Comment on above: Order Comment: Speci men Type: BLOOD SPECIMEN Ordering Facility: [facility] Address: [address] [place] [address] Performed By: #### 2 276-4, 2132-01, 2283-12 #### [facility] CLIA [id number] [address] [place] [address] [place] CBC W Auto Differential pane l (Bld)on 09-05-2023 Basophils (Bld) [#/Vol] 10*3/uL Normal <0.11 [facility] Comment on above: Order Comment: Speci men Type: BLOOD SPECIMEN Ordering Facility: [facility] Address: [address] [place] [address] Performed By: #### 2 276-4, 2132-01, 2283-12 #### [facility] CLIA [id number] [address] [place] [address] [place] Basophils/100 WBC (Bld) 0.3 % Normal [facility] Comment on above: Order Comment: Speci men Type: BLOOD SPECIMEN Ordering Facility: [facility] Address: [address] [place] [address] Performed By: #### 2 276-4, 2132-01, 2283-12 #### [facility] CLIA [id number] [address] [place] [address] [place] Differential cell count method Nom (Bld) Auto Normal [facility] Comment on above: Order Comment: Speci men Type: BLOOD SPECIMEN Ordering Facility: [facility] Address: [address] [place] [address] Performed By: #### 2 276-4, 2132-01, 2283-12 #### [facility] CLIA [id number] [address] [place] [address] [place] Eosinophils (Bld) [#/Vol] 0.09 10*3/uL Normal <0.46 [facility] Comment on above: Order Comment: Speci men Type: BLOOD SPECIMEN Ordering Facility: [facility] Address: [address] [place] [address] Performed By: #### 2 276-4, 2132-01, 2283-12 #### [facility] CLIA [id number] [address] [place] [address] [place] Eosinophils/100 WBC (Bld) 1.3 % Normal [facility] Comment on above: Order Comment: Speci men Type: BLOOD SPECIMEN Ordering Facility: [facility] Address: [address] [place] [address] Performed By: #### 2 276-4, 2132-01, 2283-12 #### [facility] CLIA [id number] [address] [place] [address] [place] Erythrocyte distribution width (RBC) [Ratio] 12.6 % Normal 11.5-15.0 [facility] Comment on above: Order Comment: Speci men Type: BLOOD SPECIMEN Ordering Facility: [facility] Address: [address] [place] [address] Performed By: #### 2 276-4, 2132-01, 2283-12 #### [facility] CLIA [id number] [address] [place] [address] [place] Hematocrit (Bld) [Volume fraction] 38.0 % Normal 36.0-46.0 [facility] Comment on above: Order Comment: Speci men Type: BLOOD SPECIMEN Ordering Facility: [facility] Address: [address] [place] [address] Performed By: #### 2 276-4, 2132-01, 2283-12 #### [facility] CLIA [id number] [address] [place] [address] [place] Hemoglobin (Bld) [Mass/Vol] 12.8 g/dL Normal 11.5-15.5 [facility] Comment on above: Order Comment: Speci men Type: BLOOD SPECIMEN Ordering Facility: [facility] Address: [address] [place] [address] Performed By: #### 2 276-4, 2132-01, 2283-12 #### [facility] CLIA [id number] [address] [place] [address] [place] Immature granulocytes (Bld) [#/Vol] 10*3/uL Normal <0.10 [facility] Comment on above: Order Comment: Speci men Type: BLOOD SPECIMEN Ordering Facility: [facility] Address: [address] [place] [address] Performed By: #### 2 276-4, 2132-01, 2283-12 #### [facility] CLIA [id number] [address] [place] [address] [place] Immature granulocytes/100 WBC (Bld) 0.1 % Normal [facility] Comment on above: Order Comment: Speci men Type: BLOOD SPECIMEN Ordering Facility: [facility] Address: [address] [place] [address] Performed By: #### 2 276-4, 2132-01, 2283-12 #### [facility] CLIA [id number] [address] [place] [address] [place] Lymphocytes (Bld) [#/Vol] 3.49 10*3/uL Normal 1.00-4.00 [facility] Comment on above: Order Comment: Speci men Type: BLOOD SPECIMEN Ordering Facility: [facility] Address: [address] [place] [address] Performed By: #### 2 276-4, 2132-01, 2283-12 #### [facility] CLIA [id number] [address] [place] [address] [place] Lymphocytes/100 WBC (Bld) 48.6 % Normal [facility] Comment on above: Order Comment: Speci men Type: BLOOD SPECIMEN Ordering Facility: [facility] Address: [address] [place] [address] Performed By: #### 2 276-4, 2132-01, 2283-12 #### [facility] CLIA [id number] [address] [place] [address] [place] MCH (RBC) [Entitic mass] 30.0 pg Normal 26.0-34.0 [facility] Comment on above: Order Comment: Speci men Type: BLOOD SPECIMEN Ordering Facility: [facility] Address: [address] [place] [address] Performed By: #### 2 276-4, 2132-01, 2283-12 #### [facility] CLIA [id number] [address] [place] [address] [place] MCHC (RBC) [Mass/Vol] 33.7 g/dL Normal 30.5-36.0 [facility] Comment on above: Order Comment: Speci men Type: BLOOD SPECIMEN Ordering Facility: [facility] Address: [address] [place] [address] Performed By: #### 2 276-4, 2132-01, 2283-12 #### [facility] CLIA [id number] [address] [place] [address] [place] MCV (RBC) [Entitic vol] 89.2 fL Normal 80.0-100.0 [facility] Comment on above: Order Comment: Speci men Type: BLOOD SPECIMEN Ordering Facility: [facility] Address: [address] [place] [address] Performed By: #### 2 276-4, 2132-01, 2283-12 #### [facility] CLIA [id number] [address] [place] [address] [place] Monocytes (Bld) [#/Vol] 0.48 10*3/uL Normal <0.87 [facility] Comment on above: Order Comment: Speci men Type: BLOOD SPECIMEN Ordering Facility: [facility] Address: [address] [place] [address] Performed By: #### 2 276-4, 2132-01, 2283-12 #### [facility] CLIA [id number] [address] [place] [address] [place] Monocytes/100 WBC (Bld) 6.7 % Normal [facility] Comment on above: Order Comment: Speci men Type: BLOOD SPECIMEN Ordering Facility: [facility] Address: [address] [place] [address] Performed By: #### 2 276-4, 2132-01, 2283-12 #### [facility] CLIA [id number] [address] [place] [address] [place] Neutrophils (Bld) [#/Vol] 3.09 10*3/uL Normal 1.45-7.50 [facility] Comment on above: Order Comment: Speci men Type: BLOOD SPECIMEN Ordering Facility: [facility] Address: [address] [place] [address] Performed By: #### 2 276-4, 2132-01, 2283-12 #### [facility] CLIA [id number] [address] [place] [address] [place] Neutrophils/100 WBC (Bld) 43.0 % Normal [facility] Comment on above: Order Comment: Speci men Type: BLOOD SPECIMEN Ordering Facility: [facility] Address: [address] [place] [address] Performed By: #### 2 276-4, 2132-01, 2283-12 #### [facility] CLIA [id number] [address] [place], [place] [address] [place] Nucleated RBC (Bld) [#/Vol] 10*3/uL Normal <0.01 [facility] Comment on above: Order Comment: Speci men Type: BLOOD SPECIMEN Ordering Facility: [facility] Address: [address] [place] [address] Performed By: #### 2 276-4, 2132-01, 2283-12 #### [facility] CLIA [id number] [address] [place] [address] [place] Nucleated RBC/100 WBC (Bld) [Ratio] 0.0 /100 WBC Normal [facility] Comment on above: Order Comment: Speci men Type: BLOOD SPECIMEN Ordering Facility: [facility] Address: [address] [place] [address] Performed By: #### 2 276-4, 2132-01, 2283-12 #### [facility] CLIA [id number] [address] [place] [address] [place] Platelet mean volume (Bld) [Entitic vol] 9.2 fL Normal 9.0-12.7 [facility] Comment on above: Order Comment: Speci men Type: BLOOD SPECIMEN Ordering Facility: [facility] Address: [address] [place] [address] Performed By: #### 2 276-4, 2132-01, 2283-12 #### [facility] CLIA [id number] [address] [place] [address] [place] Platelets (Bld) [#/Vol] 361 10*3/uL Normal 150-400 [facility] Comment on above: Order Comment: Speci men Type: BLOOD SPECIMEN Ordering Facility: [facility] Address: [address] [place] [address] Performed By: #### 2 276-4, 9, 8 #### [facility] CLIA [id number] [address] [place] [address] [place] RBC (Bld) [#/Vol] 4.26 10*6/uL Normal 3.90-5.20 [facility] Comment on above: Order Comment: Speci men Type: BLOOD SPECIMEN Ordering Facility: [facility] Address: [address] [place] [address] Performed By: #### 2 276-4, 9, 8 #### [facility] CLIA [id number] [address] [place] [address] [place] WBC (Bld) [#/Vol] 7.18 10*3/uL Normal 3.70-11.00 [facility] Comment on above: Order Comment: Speci men Type: BLOOD SPECIMEN Ordering Facility: [facility] Address: [address] [place] [address] Performed By: #### 2 276-4, 9, 8 #### [facility] CLIA [id number] [address] [place] [address] [place] Comprehensive metabolic 2000 panelon 09-05-2023 Albumin [Mass/Vol] 4.0 g/dL Normal 3.9-4.9 [facility] Comment on above: Order Comment: Speci men Type: BLOOD SPECIMEN Ordering Facility: [facility] Address: [address] [place] [address] Performed By: #### 2 4323-8 #### [facility] CLIA [id number] [address] [place] [address] ALP [Catalytic activity/Vol] 91 U/L Normal 34-123 [facility] Comment on above: Order Comment: Speci men Type: BLOOD SPECIMEN Ordering Facility: [facility] Address: [address] [place] [address] Performed By: #### 2 4323-8 #### [facility] CLIA [id number] [address] [place] [address] ALT [Catalytic activity/Vol] 15 U/L Normal 7-38 [facility] Comment on above: Order Comment: Speci men Type: BLOOD SPECIMEN Ordering Facility: [facility] Address: [address] [place] [address] Performed By: #### 2 4323-8 #### [facility] CLIA [id number] [address] [place] [address] Anion gap [Moles/Vol] 10 mmol/L Normal 9-18 [facility] Comment on above: Order Comment: Speci men Type: BLOOD SPECIMEN Ordering Facility: [facility] Address: [address] [place] [address] Performed By: #### 2 4323-8 #### [facility] CLIA [id number] [address] [place] [address] AST [Catalytic activity/Vol] 13 U/L Normal 13-35 [facility] Comment on above: Order Comment: Speci men Type: BLOOD SPECIMEN Ordering Facility: [facility] Address: [address] [place], [place] [address] Performed By: #### 2 4323-8 #### [facility] CLIA [id number] [address] [place] [address] Bilirubin [Mass/Vol] 0.3 mg/dL Normal 0.2-1.3 [facility] Comment on above: Order Comment: Speci men Type: BLOOD SPECIMEN Ordering Facility: [facility] Address: [facility] [place] [address] Performed By: #### 2 4323-8 #### [facility] CLIA [id number] [address] [place] [address] Calcium [Mass/Vol] 9.5 mg/dL Normal 8.5-10.2 [facility] Comment on above: Order Comment: Speci men Type: BLOOD SPECIMEN Ordering Facility: [facility] Address: [address] [place] [address] Performed By: #### 2 4323-8 #### [facility] CLIA [id number] [address] [place] [address] Chloride [Moles/Vol] 106 mmol/L High 97-105 [facility] Comment on above: Order Comment: Speci men Type: BLOOD SPECIMEN Ordering Facility: [facility] Address: [address] [place] [address] Performed By: #### 2 4323-8 #### [facility] CLIA [id number] [address] [place] [address] CO2 [Moles/Vol] 26 mmol/L Normal 22-30 [facility] Comment on above: Order Comment: Speci men Type: BLOOD SPECIMEN Ordering Facility: [facility] Address: [address] [place] [address] Performed By: #### 2 4323-8 #### [facility] CLIA [id number] [address] [place] [address] Creatinine [Mass/Vol] 0.75 mg/dL Normal 0.58-0.96 [facility] Comment on above: Order Comment: Speci men Type: BLOOD SPECIMEN Ordering Facility: [facility] Address: [address] [place] [address] Performed By: #### 2 4323-8 #### [facility] CLIA [id number] [address] [place] [address] Creatinine and Glomerular filtration rate.predicted panel (S/P/Bld) 109 mL/min/1.73m??? Normal >=60 [facility] Comment on above: Order Comment: Speci men Type: BLOOD SPECIMEN Ordering Facility: [facility] Address: [address] [place], [place] [address] Result Comment: Stephani mated Glomerular Filtration Rate (eGFR) is calculated using the 2020 CKD-EPI creatinine equation. This equation utilizes serum creatinine, sex, and age as parameters. The creatinine assay has traceable calibration to isotope dilution-mass spectrometry. Refer to KDIGO guidelines for clinical interpretation. In patients with unstable renal function, e.g. those with acute kidney injury, the eGFR may not accurately reflect actual GFR. Performed By: #### 2 4323-8 #### [facility] CLIA [id number] [address] [place] [address] Glucose [Mass/Vol] 104 mg/dL High 74-99 [facility] Comment on above: Order Comment: Laury bradshaw Type: BLOOD SPECIMEN Ordering Facility: [facility] Address: [address] [place] [address] Result Comment: The [place] Diabetes Association (ADA) provides guidance for cutoff values for fasting glucose and random glucose. The ADA defines fasting as no caloric intake for at least 8 hours. Fasting plasma glucose results between 100 to 125 mg/dL indicate increased risk for diabetes (prediabetes). Fasting plasma glucose results greater than or equal to 126 mg/dL meet the criteria for diagnosis of diabetes. In the absence of unequivocal hyperglycemia, results should be confirmed by repeat testing. In a patient with classic symptoms of hyperglycemia or hyperglycemic crisis, random plasma glucose results greater than or equal to 200 mg/dL meet the criteria for diagnosis of diabetes. Reference: Standards of Medical Care in Diabetes 2016, [place] Diabetes Association. Diabetes Care. 2016.39(Suppl 1). Performed By: #### 2 4323-8 #### [facility] CLIA [id number] [address] [place] [address] Potassium [Moles/Vol] 4.2 mmol/L Normal 3.7-5.1 [facility] Comment on above: Order Comment: Laury bradshaw Type: BLOOD SPECIMEN Ordering Facility: [facility] Address: [address] [place] [address] Performed By: #### 2 4323-8 #### [facility] CLIA [id number] [address] [place] [address] Protein [Mass/Vol] 7.4 g/dL Normal 6.3-8.0 [facility] Comment on above: Order Comment: Laury bradshaw Type: BLOOD SPECIMEN Ordering Facility: [facility] Address: [address] [place] [address] Performed By: #### 2 4323-8 #### [facility] CLIA [id number] [address] [place] [address] Sodium [Moles/Vol] 142 mmol/L Normal 136-144 [facility] Comment on above: Order Comment: Speci men Type: BLOOD SPECIMEN Ordering Facility: [facility] Address: [address] [place] [address] Performed By: #### 2 4323-8 #### [facility] CLIA [id number] [address] [place] [address] Urea nitrogen [Mass/Vol] 12 mg/dL Normal 7-21 [facility] Comment on above: Order Comment: Speci men Type: BLOOD SPECIMEN Ordering Facility: [facility] Address: [address] [place] [address] Performed By: #### 2 4323-8 #### [facility] CLIA [id number] [address] [place] [address] Ferritin SerPl-mCncon 2023 Ferritin [Mass/Vol] 86.7 ng/mL Normal 14.7-205.1 [facility] Comment on above: Order Comment: Speci men Type: BLOOD SPECIMEN Ordering Facility: [facility] Address: [address] [place] [address] Performed By: #### 2 276-4, 2132-01, 8 #### [facility] CLIA [id number] [address] [place] [address] [place] [address] [place] Folate SerPl-mCncon 09-05-19 Folate [Mass/Vol] 12.0 ng/mL Normal >4.7 [facility] Comment on above: Order Comment: Speci men Type: BLOOD SPECIMEN Ordering Facility: [facility] Address: [address] [place] [address] Performed By: #### 2 276-4, 9, 2283-12 #### [facility] CLIA [id number] [address] [place] [address] [place] H. pylori IgG IA Qlon 2023 H. PYLORI IGG, QUAL Negative Normal Negative [facility] Comment on above: Order Comment: Laury bradshaw Type: BLOOD SPECIMEN Ordering Facility: [facility] Address: [address] [place] [address] Result Comment: Cash ot exclude H. pylori infection if the specimen collected 3-4 weeks after onset of symptoms. Performed By: #### 2 276-4, 2132-9, 2284-8 #### [facility] CLIA [id number] [address] [place] [address] [place] HbA1c (Bld)on 09-05-2023 Average glucose Estimated from glycated hemoglobin (Bld) [Mass/Vol] 108 mg/dL Normal [facility] Comment on above: Order Comment: Laury bradshaw Type: BLOOD SPECIMEN Ordering Facility: [facility] Address: [address] [place] [address] Result Comment: eAG: (Estimated average glucose) is a calculated value from HgbA1c and is publications sales representative of the average blood glucose level in the last 2-3 month period. Performed By: #### 5 5454-3 #### [facility] CLIA [id number] [address] [place] [address] [place] HbA1c (Bld) [Mass fraction] 5.4 % Normal 4.3-5.6 [facility] Comment on above: Order Comment: Laury bradshaw Type: BLOOD SPECIMEN Ordering Facility: [facility] Address: [address] [place] [address] Result Comment: [place] Diabetes Association guidelines indicate that patients with HgbA1c in the range 5.7-6.4% are at increased risk for development of diabetes, and intervention by lifestyle modification may be beneficial. HgbA1c greater or equal to 6.5% is considered diagnostic of diabetes. Performed By: #### 5 5454-3 #### [facility] CLIA [id number] [address] [place] [address] [place] Iron and Iron binding capaci ty panelon 09-05-2023 Iron [Mass/Vol] 94 ug/dL Normal 41-186 [facility] Comment on above: Order Comment: Speci men Type: BLOOD SPECIMEN Ordering Facility: [facility] Address: [address] [place] [address] Performed By: #### 5 0190-8, 6-3, 37838-0 #### [facility] CLIA [id number] [address] [place] [address] [place] #### 18772-2 #### [facility] CLIA [id number] [address] [place] [address] [place] [facility] CLIA [id number] [address] [place] [address] Iron binding capacity [Mass/Vol] 310 ug/dL Normal 232-386 [facility] Comment on above: Order Comment: Speci men Type: BLOOD SPECIMEN Ordering Facility: [facility] Address: [address] [place] [address] Performed By: #### 5 0190-8, 3015-3, 83833-1 #### [facility] CLIA [id number] [address] [place] [address] [place] #### 56295-0 #### [facility] CLIA [id number] [address] [place] [address] [place] [facility] CLIA [id number] [address] [place] [address] Iron/TIBC [Molar ratio] 30.3 % Normal 15.0-57.0 [facility] Comment on above: Order Comment: Speci men Type: BLOOD SPECIMEN Ordering Facility: [facility] Address: [address] [place] [address] Performed By: #### 5 0190-8, 6-3, 71351-2 #### [facility] CLIA [id number] [address] [place] [address] [place] #### 32567-4 #### [facility] CLIA [id number] [address] [place] [address] [place] [facility] CLIA [id number] [address] [place] [address] Lipid 1996 panelon 4 Cholesterol [Mass/Vol] 179 mg/dL Normal <200 [facility] Comment on above: Order Comment: Speci men Type: BLOOD SPECIMEN Ordering Facility: [facility] Address: [address] [place] [address] Result Comment: <200 mg/dL, Desirable 200-239 mg/dL, Borderline high >239 mg/dL, High Performed By: #### 2 276-4, 2132-01, 2283-12 #### [facility] CLIA [id number] [address] [place] [address] [place] Cholesterol in HDL [Mass/Vol] 45 mg/dL Normal >39 [facility] Comment on above: Order Comment: Speci men Type: BLOOD SPECIMEN Ordering Facility: [facility] Address: [address] [place] [address] Result Comment: 40-5 9 mg/dL, Acceptable >59 mg/dL, High: Negative risk factor for coronary heart disease <40 mg/dL, Low: Positive risk factor for coronary heart disease Performed By: #### 2 276-4, 2132-01, 2283-12 #### [facility] CLIA [id number] [address] [place] [address] [place] Cholesterol in LDL [Mass/Vol] 119 mg/dL High <100 [facility] Comment on above: Order Comment: Speci men Type: BLOOD SPECIMEN Ordering Facility: [facility] Address: [address] [place] [address] Result Comment: <100 mg/dL, Optimal 100-129 mg/dL, Near optimal/above optimal 130-159 mg/dL, Borderline high 160-189 mg/dL, High >189 mg/dL, Very high Secondary prevention optimal LDL Cholesterol levels are recommended to be < 70 mg/dL Performed By: #### 2 276-4, 2132-01, 2283-12 #### [facility] CLIA [id number] [address] [address] [place] Cholesterol in LDL/Cholesterol in HDL [Mass ratio] 2.64 {ratio} High <2.54 [facility] Comment on above: Order Comment: Speci men Type: BLOOD SPECIMEN Ordering Facility: [facility] Address: [address] [place] [address] Result Comment: Belinda degroot: 1. National Cholesterol Education Program ATP III Guideline At-A-Glance Quick Desk Reference: National Heart, Lung, and Blood [place]. National Institutes of Health. 2001: NIH Publication No. 01-3305. 2. An International Atherosclerosis Society position paper: global recommendations for the management of dyslipidemia: executive summary, Atherosclerosis. 2014: 232(2):410-413. Performed By: #### 2 276-4, 2132-01, 2283-12 #### [facility] CLIA [id number] [address] [place] [address] [place] Cholesterol in VLDL [Mass/Vol] 15 mg/dL Normal <30 [facility] Comment on above: Order Comment: Laury bradshaw Type: BLOOD SPECIMEN Ordering Facility: [facility] Address: [address] [place] [address] Performed By: #### 2 276-4, 2132-01, 2283-12 #### [facility] CLIA [id number] [address] [address] [place] Cholesterol non HDL [Mass/Vol] 134 mg/dL High <130 [facility] Comment on above: Order Comment: Laury men Type: BLOOD SPECIMEN Ordering Facility: [facility] Address: [address] [place] [address] Result Comment: <130 mg/dL, Optimal 130-159 mg/dL, Near optimal/above optimal 160-189 mg/dL, Borderline high 190-219 mg/dL, High >219 mg/dL, Very high Secondary prevention optimal non HDL Cholesterol levels are recommended to be <100 mg/dL Performed By: #### 2 276-4, 2132-01, 2283-12 #### [facility] CLIA [id number] [address] [place] [address] [place] Cholesterol.total/Cho lesterol in HDL [Mass ratio] 3.98 {ratio} Normal <5.10 [facility] Comment on above: Order Comment: Speci men Type: BLOOD SPECIMEN Ordering Facility: [facility] Address: [address] [place] [address] Performed By: #### 2 276-4, 2132-01, 2283-12 #### [facility] CLIA [id number] [address] [place] [address] [place] FASTING TIME 12 hrs Normal [facility] Comment on above: Order Comment: Speci men Type: BLOOD SPECIMEN Ordering Facility: [facility] Address: [address] [place] [address] Performed By: #### 2 276-4, 2132-01, 2283-12 #### [facility] CLIA [id number] [address] [place] [address] [place] Triglyceride [Mass/Vol] 74 mg/dL Normal <150 [facility] Comment on above: Order Comment: Speci men Type: BLOOD SPECIMEN Ordering Facility: [facility] Address: [address] [place] [address] Result Comment: <150 mg/dL, Normal 150-199 mg/dL, Borderline high 200-499 mg/dL, High >499 mg/dL, Very high Performed By: #### 2 276-4, 2132-01, 2283-12 #### [facility] CLIA [id number] [address] [place], [place] [address] [place] NT-proBNP [facility] 09-04 Natriuretic peptide.B prohormone N-Terminal [Mass/Vol] 48 pg/mL Normal <125 [facility] Comment on above: Order Comment: Laury bradshaw Type: BLOOD SPECIMEN Ordering Facility: [facility] Address: [address] [place] [address] Performed By: #### 2 276-4, 9, 2283-12 #### [facility] CLIA [id number] [address] [place] [address] [place] TSH SerPl-aCncon 09-05-2023 TSH Qn 6.440 m[IU]/L High 0.270-4.200 [facility] Comment on above: Order Comment: Laury bradshaw Type: BLOOD SPECIMEN Ordering Facility: [facility] Address: [address] [place] [address] Result Comment: If t he patient is , TSH reference range varies by gestational period: First Trimester (weeks 9-12): 0.180-2.990 mIU/L Second Trimester: 0.110-3.980 mIU/L Third Trimester: 0.480-4.710 mIU/L Seth Crews et al. A Practical Approach for the Verifications and Determination of Site- and Trimester-Specific Reference Intervals for Thyroid Function tests in . Thyroid, 2019:29:3:412-420. Zhang Ybarra, et al. 2017 Guidelines of the [place] Thyroid Association for the Diagnosis and Management of Thyroid Disease during and the . Thyroid, 2017:27:3:315-389. Performed By: #### 2 276-4, 2132-01, 2283-12 #### [facility] CLIA [id number] [address] [place], [place] [address] [place] VITAMIN B1 (THIAMINE), WHOLE BLOODon 09-05-2023 Thiamine (Bld) [Moles/Vol] 179.2 nmol/L Normal 84.3-213.3 [facility] Comment on above: Order Comment: aLury bradshaw Type: BLOOD SPECIMEN Ordering Facility: [facility] Address: [address] [place] [address] Result Comment: This assay measures the concentration of thiamine diphosphate (TDP), the primary active form of vitamin B1. Approximately 90 percent of vitamin B1 present in whole blood is TDP. Thiamine and thiamine monophosphate, which comprise the remaining 10 percent, are not measured. This test was developed and its performance characteristics determined by [facility] Pathology and Laboratory Medicine [place] ([facility]). It has not been cleared or approved by the FDA. [facility] is regulated under CLIA as qualified to perform high-complexity testing. This test is used for clinical purposes. It should not be regarded as investigational or for research. Performed By: #### B 1WB #### [facility] CLIA [id number] [address] [place] [address] [place] Vit B12 SerPl-ncon 024 Cobalamin (Vitamin B12) [Mass/Vol] 612 pg/mL Normal 232-1245 [facility] Comment on above: Order Comment: Speci men Type: BLOOD SPECIMEN Ordering Facility: [facility] Address: [address] [place] [address] Performed By: #### 2 276-4, 2132-9, 2284-8 #### [facility] CLIA [id number] [address] [place] [address] [place] Glucose - FINGER STICKon Glucose [Mass/Vol] 5.4 mg/dL [employer] Other PAP ACOG PANEL 2: 30 to 65on 06-10-2022 . . Normal [facility] Comment on above: Result Comment: Perf ormed at: [facility] Performed By: #### 4 [id number] #### [facility] [address], [place] [address] Dr. Sachin Coates Age Gdln ACOG Testing - Normal [facility] Comment on above: Performed By: #### [id number] #### [facility] [address], [place] [address] Dr. Sachin Coates DIAGNOSIS: Comment Normal [facility] Comment on above: Result Comment: NEGA TIVE FOR INTRAEPITHELIAL LESION OR MALIGNANCY. CELLULAR CHANGES ASSOCIATED WITH INFLAMMATION ARE PRESENT. THIS SPECIMEN WAS RESCREENED PART OF OUR PRODUCTION SUPPORT ENGINEER PROGRAM. Performed at: WB Performed By: #### [id number] #### [facility] [address] [place] [address] Dr. Sachin Coates HPV Aptima Negative Normal Negative [facility] Comment on above: Result Comment: This nucleic acid amplification test detects fourteen high-risk HPV types (16,18,31,33,35,39,45,51,52,56,58,59,66,68) without differentiation. Performed at: =G Performed By: #### [id number] #### [facility] [address] [place] [address] Dr. Sachin Coates HPV Genotype Reflex Comment Normal [facility] Comment on above: Result Comment: Crit eria not met, HPV Genotype not performed. Performed at: WB Performed By: #### [id number] #### [facility] [address] [place] [address] Dr. Sachin Coates Methodology: Comment Normal [facility] Comment on above: Result Comment: This liquid based ThinPrep(R) pap test was screened with the use of an image guided system. Performed at: WB Performed By: #### [id number] #### [facility] [address] [place] [address] Dr. Sachin Coates Note: Comment Normal [facility] Comment on above: Result Comment: The Pap smear is a screening test designed to aid in the detection of premalignant and malignant conditions of the uterine cervix. It is not a diagnostic procedure and should not be used as the sole means of detecting cervical cancer. Both false-positive and false-negative reports do occur. . Performed at: WB Performed By: #### [id number] #### [facility] [address] [place] [address] Dr. Sachin Coates Performed by: Comment Normal [facility] Comment on above: Result Comment: Peyton Beverly, Manager Fiber (ASCP) Performed at: WB Performed By: #### [id number] #### [facility] [address] [place] [address] Dr. Sachin Coates QC reviewed by: Comment Normal [facility] Comment on above: Result Comment: Cielo Cochran, Supervisory Manager Fiber (ASCP) Performed at: WB Performed By: #### [id number] #### [facility] [address] [place] [address] [address] Sachin Coates Specimen adequacy: Comment Normal [facility] Comment on above: Result Comment: Sati sfactory for evaluation. Endocervical and/or squamous metaplastic cells (endocervical component) are present. Performed at: WB Performed By: #### [id number] #### [facility] [address] [address] [address] Sachin Coates COVID-19 SOFIAOrdered By: Dario To on 12-02-2021 SARS-CoV+SARS-CoV-2 (COVID-19) Ag IA.rapid Ql (Resp) Negative Negative [facility] Comment on above: This is a duplicate Zuleyma SARS Antigen (PAMELLA) result to be used for statistical tracking purpose only. No Panel InformationOrdered By: Ck To on 12-02-2021 SARS Antigen (LFIA) [facility] Chart Updateon 08-08-2020 Chart Update Chart Update Called patient back to discuss. confirmed appointment for next week. Message Recorded as Task Date: 08/08/2020 08:25 AM, Created By: Taylor Hernandez Task Name: Call Back Assigned To: Nickie Littlejohn Regarding Patient: JALEESA PAINTING, Status: In Progress Comment: Taylor Hernandez - 08 Aug 2020 8:25 AM TASK CREATED Caller: Self; PT RETURNING NURSE CALL FROM YESTERDAY Va Stern - 08 Aug 2020 8:36 AM TASK REASSIGNED: Previously Assigned To Fiordaliza Wheeler Madeleine - 08 Aug 2020 8:36 AM TASK IN PROGRESS Va Stern - 08 Aug 2020 8:56 AM TASK REASSIGNED: Previously Assigned To Va Stern Signatures Electronically signed by : Nickie Littlejohn APRN-DYNAMOMETER TESTER; Aug 08 2020 10:18AM EST (Author) Normal [facility] DURABILITY ENGINEER - Procedure Visiton 0 07-10-2020 DURABILITY ENGINEER - Procedure Visit Chief Complaint IUI Active Problems Problems Encounter for artificial insemination (V26.1) (Z31.89) Encounter for preconception consultation (V26.49) (Z31.69) Female infertility (628.9) (N97.9) Fertility testing (V26.21) (Z31.41) Infertility counseling (V26.49) (Z31.69) Irregular menses (626.4) (N92.6) Morbid obesity (278.01) (E66.01) PCOS (polycystic ovarian syndrome) (256.4) (E28.2) Screening for STD (sexually transmitted disease) (V74.5) (Z11.3) Past Medical History Problems No pertinent past medical history (V49.89) (Z78.9) Surgical History Problems History of Adenoidectomy History of Cholecystectomy Family History Mother No pertinent family history Father No pertinent family history Social History Problems Never a smoker Never Allergies Medication No Known Drug Allergies Recorded By: Breezy Jasso; 01/24/2020 11:18:28 AM Current Meds Medication NameInstruction Letrozole 2.5 MG Oral TabletTAKE 1 TABLET CYCLE DAY 3-7 after a negative home test as directed by your physician. Ovidrel 250 MCG/0.5ML Subcutaneous InjectableINJECT SUBCUTANEOUSLY DIRECTED. Progesterone Micronized 100 MG Oral CapsuleTAKE 1 CAPSULE Twice daily insert capsules vaginally Vitamin D 25 MCG (1000 UT) Oral Tablet Procedure IUI Procedure note: The patient presented today for IUI. Consent signed by patient, IUI sample identified by patient, and Final Verification performed with patient prior to insemination. All patient's questions were discussed and answered. See chart for full details and signed documentation. Patient was placed in dorsal lithotomy position and speculum was inserted into vagina. Cervical os was visualized and prepared sample was inserted into uterus. Insemination was performed without difficulty. Patient tolerated procedure well. TMS: 16.0 Additional notes: Large graves needed to visualize cervix as well as tenaculum. Patient was advised to call office if she develops fever, chills, pelvic pain, or heavy bleeding. Prometrium and post-IUI teaching completed. Will start Prometrium three days after IUI and continue twice daily. Pt will do a home test two weeks from IUI date. If home test positive, patient will continue Prometrium and call office to schedule BHCG. If home test negative, patient will discontinue Prometrium, and was advised to call office with start of menses; will proceed with another cycle if appropriate. Patient verbalized understanding of plan. D/w Dr. Richard Dove MD Reproductive Endocrinology and Infertility Fellow 07/10/2020 11:12 Attending Note Attestation: I reviewed the sheth and critical portions of the history and physical exam and/or was physically present for sheth and critical portions performed by the fellow. I reviewed the fellow's documentation and discussed the patient with the fellow. I agree with the fellow's medical decision making as documented on the fellow's note. I was present and personally supervised the entire procedure. Joelle aRmos MD Signatures Electronically signed by : Joelle Dove MD; Jul 10 2020 11:12AM EST (Author) Electronically signed by : Joelle Ramos MD; Jul 11 2020 6:01PM EST (Author) Normal [facility] ESTRADIOLon 07-08-2020 ESTRADIOL 186 pg/mL Normal [facility] Comment on above: Result Comment: Estr adiol measurement is performed using the Shruthi 46elks Access Sensitive Estradiol Immunoassay. Estradiol testing is performed using a different test methodology at [facility] than [facility]. Direct result comparison should only be made within the same method. REF VALUES EARLY FOLLICULAR 22-115 MID FOLLICULAR 25-115 OVULATORY PEAK 32-517 MID LUTEAL 37-246 POSTMENOPAUSE <15- 25 MALE <15- 32 Performed By: #### G [facility] #### [facility] [address] [place] [address] Estradiol, Serumon E2 [Mass/Vol] 186 pg/mL MG-OBGYN-Ri sm an 310 IVF Work Phone: Comment on above: Estradiol measuremen t is performed using the Shruthi 46elks Access Sensitive Estradiol Immunoassay. Estradiol testing is performed using a different test methodology at [facility] than [facility] Direct result comparison should only be made within the same method.REF VALUESEARLY FOLLICULAR 22-115MID FOLLICULAR 25-115OVULATORY PEAK 32-517MID LUTEAL 37-246POSTMENOPAUSE <15- 25MALE <15- 32 LUTEINIZING HORMONEon 2020 LUTEINIZING HORMONE 9.5 IU/L Normal [facility] Comment on above: Result Comment: Lute inizing Hormone [LH] is performed using the Shruthi [place] Access Immunoassay. LH testing is performed using a different test methodology at [facility] than other [facility]. Direct result comparison should only be made within the same method. REF VALUES FOLLICULAR PHASE 1.5-10.0 MID-CYCLE 13.0-72.0 LUTEAL PHASE 0.5-13.0 MENOPAUSE 15.0-65.0 PREPUBERTY 0- 3.0 CHILDREN 0- 6.0 ADULT MALE 1.0- 9.0 Performed By: #### G [facility] #### [facility] [address] [place] [address] Luteinizing Hormone, Serumon 07-08-2020 Lutropin Qn 9.5 {IU/L} UY-[id number]-Xhhr an 310 IVF Work Phone: Comment on above: Luteinizing Hormone [LH] is performed using the Shruthi 46elks Access Immunoassay. LH testing is performed using a different test methodology at [facility] than other [facility]. Direct result comparison should only be made within the same method.REF VALUESFOLLICULAR PHASE 1.5-10.0MID-CYCLE 13.0-72.0LUTEAL PHASE 0.5-13.0MENOPAUSE 15.0-65.0PREPUBERTY 0- 3.0CHILDREN 0- 6.0ADULT MALE 1.0- 9.0 TYPE + SCREENon 07-06-2020 ABO TYPE A Normal [facility] Comment on above: Performed By: #### T +S #### [facility] [address] [place] [address] RH TYPE Positive Normal [facility] Comment on above: Performed By: #### T +S #### [facility] [address] [place] [address] ESTRADIOLon 07-05-2020 ESTRADIOL 58 pg/mL Normal [facility] Comment on above: Result Comment: Estr adiol measurement is performed using the Shruthi 46elks Access Sensitive Estradiol Immunoassay. Estradiol testing is performed using a different test methodology at [facility] than other [facility]. Direct result comparison should only be made within the same method. REF VALUES EARLY FOLLICULAR 22-115 MID FOLLICULAR 25-115 OVULATORY PEAK 32-517 MID LUTEAL 37-246 POSTMENOPAUSE <15- 25 MALE <15- 32 Performed By: #### G [facility] #### [facility] [address] [place] [address] Estradiol, Serumon 1 E2 [Mass/Vol] 58 pg/mL MG-OBGYN-Ri sm an 310 IVF Work Phone: Comment on above: Estradiol measuremen t is performed using the Korbit Access Sensitive Estradiol Immunoassay. Estradiol testing is performed using a different test methodology at [facility] than [facility]. Direct result comparison should only be made within the same method.REF VALUESEARLY FOLLICULAR 22-115MID FOLLICULAR 25-115OVULATORY PEAK 32-517MID LUTEAL 37-246POSTMENOPAUSE <15- 25MALE <15- 32 Hematologyon 07-05-2020 ABO group Nom (Bld) A MG-SCALE EXPERT-Rism an 310 IVF Work Phone: Blood group antibody screen Ql Negative HS-VEVJC-Mmxr an 310 IVF Work Phone: Rh immune globulin screen (Bld) [Interp] Positive MG-OBGYN-R ism an 310 IVF Work Phone: LUTEINIZING HORMONEon 2020 LUTEINIZING HORMONE 9.2 IU/L Normal [facility] Comment on above: Result Comment: Lute inizing Hormone [LH] is performed using the Korbit Access Immunoassay. LH testing is performed using a different test methodology at [facility]. Direct result comparison should only be made within the same method. REF VALUES FOLLICULAR PHASE 1.5-10.0 MID-CYCLE 13.0-72.0 LUTEAL PHASE 0.5-13.0 MENOPAUSE 15.0-65.0 PREPUBERTY 0- 3.0 CHILDREN 0- 6.0 ADULT MALE 1.0- 9.0 Performed By: #### L H #### [facility] [address] [place] [address] Luteinizing Hormone, Serumon 07-05-2020 Lutropin Qn 9.2 {IU/L} EL-LRFAV-Ohgc an 310 IVF Work Phone: Comment on above: Luteinizing Hormone [LH] is performed using the Shruthi J Carlos Access Immunoassay. LH testing is performed using a different test methodology at [facility] than [facility]. Direct result comparison should only be made within the same method.REF VALUESFOLLICULAR PHASE 1.5-10.0MID-CYCLE 13.0-72.0LUTEAL PHASE 0.5-13.0MENOPAUSE 15.0-65.0PREPUBERTY 0- 3.0CHILDREN 0- 6.0ADULT MALE 1.0- 9.0 DURABILITY ENGINEER - Office Visiton 02-0 DURABILITY ENGINEER - Office Visit Diagnoses/Problems Assessed Morbid obesity (278.01) (E66.01) Irregular menses (626.4) (N92.6) Female infertility (628.9) (N97.9) PCOS (polycystic ovarian syndrome) (256.4) (E28.2) Patient Discussion/Summary Jaleesa is a 30-year-old female who desires to become using donor sperm for intrauterine insemination. She has irregular menses and oligomenorrhea, likely secondary to anovulation. Biochemical testing shows increased testosterone levels. This in addition to her menstrual history is consistent with PCOS. Her aforementioned results were discussed at length, and all questions were answered to her satisfaction. Risks, benefits, and details of various ovulation induction options were discussed with the patient. Indication for OPK/IUI, OI/OPK/IUI and OI/USF/hCG/IUI were discussed with the patient, along with potential benefits and possible future alternatives should the regimen be unsuccessful in achieving conception. The increased risk of multiple (5-8%) and rare risk of ovarian hyperstimulation were reviewed. Potential side effects, including transient vasomotor symptoms, mood swings, breast tenderness, pelvic pressure, nausea, and visual changes were discussed. The treatment regimen and ultrasound/insemination schedule was reviewed with the patient. Patient expressed understanding of the plan, along with all risks and potential side effects. Following this discussion, the patient elected to proceed with letrozole 2.5 1 on cycle days 3 through 7/US on cycle day 11 or 12/hCG/IUI. If the patient's not after 2-3 ovulatory cycles, she is to follow-up with me to discuss treatment options moving forward. We will have our nurses reach out to the patient regarding hCG counseling and selecting a donor. The patient also has yet to complete her ultrasound. She will contact us with her next menses to complete the study. All questions were answered to the patient's satisfaction. Bayron Mccarty MD Reproductive Endocrinology [facility] [phone] Julien [phone] [place] 1 Amended By: Bayron Mccarty; Jun 19 2020 10:16 AM OSVALDOProvider Mike Jaleesa is a 30-year-old female who desires to become using donor sperm for intrauterine insemination. She has irregular menses and oligomenorrhea, likely secondary to anovulation. Biochemical testing shows increased testosterone levels. This in addition to her menstrual history is consistent with PCOS. Her aforementioned results were discussed at length, and all questions were answered to her satisfaction. Risks, benefits, and details of various ovulation induction options were discussed with the patient. Indication for OPK/IUI, OI/OPK/IUI and OI/USF/hCG/IUI were discussed with the patient, along with potential benefits and possible future alternatives should the regimen be unsuccessful in achieving conception. The increased risk of multiple (5-8%) and rare risk of ovarian hyperstimulation were reviewed. Potential side effects, including transient vasomotor symptoms, mood swings, breast tenderness, pelvic pressure, nausea, and visual changes were discussed. The treatment regimen and ultrasound/insemination schedule was reviewed with the patient. Patient expressed understanding of the plan, along with all risks and potential side effects. Following this discussion, the patient elected to proceed with letrozole 2.5 1 on cycle days 3 through 7/US on cycle day 11 or 12/hCG/IUI. If the patient's not after 2-3 ovulatory cycles, she is to follow-up with me to discuss treatment options moving forward. We will have our nurses reach out to the patient regarding hCG counseling and selecting a donor. The patient also has yet to complete her ultrasound. She will contact us with her next menses to complete the study. All questions were answered to the patient's satisfaction. Bayron Mccarty MD Reproductive Endocrinology [facility] [phone] Julien [phone] [facility] Appointment Duration:. 25 minutes; greater than half of the time was spent on counseling. 1 Amended By: Bayron Mccarty; Jun 19 2020 10:16 AM ESTChief Complaint follow up History of Present Xwbunie7106/19/2020 9:30AM JALEESA PAINTING , 30 year is contacted for an (audio-visual, or audio only) Telehealth visit. Today's visit was provided through telemedicine conferencing: Using [employer] platform. Consent: The concept of telemedicine? has been described to the patient. Patient has been informed of the anticipated benefits and possible risks. Patient understands the information provided regarding telemedicine, has had the opportunity to ask questions about this information, and all questions have been answered to patient's satisfaction. Patient consents for the use of telemedicine in his/her medical care and authorizes the transmission of any relevant medical information to providers and their staff involved in patient's medical or mental health care. The location of the patient : home The location of the provider: office The following staff and their role did participate in today's encounter visit: Bayron Mccarty MD MARIANA Lazcano is a 30 year old female who presents today for follow-up. She desires single-parent procreation using donor sperm. She has obesity and irregular menses. Over the last month she has been monitoring OPK's to test for spontaneous ovulation. The patient cycle day 21 progesterone did turn positive in early April. 1 Patient reports that her last menstrual period occurred on 05/19/2019, and that ovulation predictor kits over the last few months have not turn positive reliably. She reports that she does menstruate approximately every month, however she does not know when menses is coming. It appears that she is sporadically ovulating, and she 1 is interested in discussing options moving forward. The patient is CMV positive. She has not yet chosen a sperm donor. She reports that she has met with our practice a psychologists. HSG: normal uterus, occluded left fallopian tube (hx partial salpingectomy), patent right tube AMH 6.36 1 Amended By: Bayron Mccarty; Jun 19 2020 10:16 AM ESTActive Problems Problems Encounter for preconception consultation (V26.49) (Z31.69) Female infertility (628.9) (N97.9) Fertility testing (V26.21) (Z31.41) Infertility counseling (V26.49) (Z31.69) Irregular menses (626.4) (N92.6) Morbid obesity (278.01) (E66.01) Screening for STD (sexually transmitted disease) (V74.5) (Z11.3) Past Medical History Problems No pertinent past medical history (V49.89) (Z78.9) Surgical History Problems History of Adenoidectomy History of Cholecystectomy Family History Mother No pertinent family history Father No pertinent family history Social History Problems Never a smoker Never Allergies Medication No Known Drug Allergies Recorded By: Breezy Jasso; 01/24/2020 11:18:28 AM Current Meds Medication NameInstruction Vitamin D 25 MCG (1000 UT) Oral Tablet Physical Exam This is a telehealth appointment Results/Data HCG, Beta [id number] 11:58AMBayron Mccarty Test NameResultFlagReference HCG, Beta Quantitative<2 mIU/mL Low-level positive HCG results can be seen in early , in karishma- or post-menopausal females due to normal pituitary HCG production, or with analytic interference. Repeat testing in 48-72 hours can aid in assessing for as results should double in this time period. FSH measurement is recommended in karishma- or post-menopausal females as concurrent elevation of FSH can support pituitary production as the source of the HCG elevation. . Total HCG measurement is performed using the Shruthi J Carlos Access Immunoassay which detects intact HCG and free beta HCG subunit. This test is not indicated for use as a tumor marker. HCG testing is performed using a different test methodology at [facility] than other [facility] hospitals. Direct result comparison should only be made within the same method. REF VALUES NON FEMALE <5 MALES <5 Progesterone, [id number] 11:58Bayron Stroud Test NameResultFlagReference Progesterone, Serum10.5 ng/mL REF VALUES MALE <0.3- 1.2 FOLLICULAR PHASE <0.3- 1.4 LUTEAL PHASE 3.3-25.6 MID-LUTEAL PHASE 4.4-28.0 POSTMENOPAUSAL <0.3- 0.7 FEMALES: 1ST TRIMESTER 11.2- 90.0 2ND TRIMESTER 25.6- 89.4 3RD TRIMESTER 48.4-422.5 . Patients receiving DHEA-S supplements may show false elevation of progesterone for results near 1.0 ng/mL. Contact laboratory at [phone] if alternative testing is needed. CMV IgG and IgM [id number] 11:58AMBibianaBayorn Test NameResultFlagReference CMV IgG AntibodyREACTIVEASee Below Reference Range: NONREACTIVE CMV IGM [id number] 11:58AMBibianaBayron Test NameResultFlagReference CMV IGM AB<30.00 AU/mL REFERENCE RANGE: <30.00 AU/mL . Interpretive criteria: <30.00 AU/mL No antibody detected 30.00-34.99 AU/mL Equivocal > or = 35.00 AU/mL Antibody detected . Results from any one IgM assay should not be used as a sole determinant of a current or recent infection. Because an IgM test can yield false positive results and low level IgM antibody may persist for more than 12 months post infection, reliance on a single test result could be misleading. Acute infection is best diagnosed by demonstrating the conversion of IgG from negative to positive. If an acute infection is suspected, consider obtaining a new specimen and submit for both IgG and IgM testing in two or more weeks. Xray [id number] 2020 12:00AMBayron Mccarty [Mar 28, 2020 9:43AM Bayron Mccarty] Reason: Unspecified for Xray Hysterosalpingogram Test NameResultFlagReference Xray Hysterosalpingogram Please click on the link to view the study images Anti Mullerian [id number] 12:03PMBibiana Bayron Test NameResultFlagReference Anti Mullerian Hormone6.36 ng/mL For assays employing antibodies, the possibility exists for interference by heterophile antibodies in the samples.1 1.Oswald Crews. Interferences in Immunoassays - still a threat. Clin. Chem. 2000; 46: 0136-9524. This test was developed and its performance characteristics determined by [employer]. It has not been cleared or approved by the Food and Drug Administration. Reference Range: Females 26 - 30y: 1.03 - 11.10 Median 4.20 AMH concentrations of >= 1.06 ng/mL is correlated with a better response to ovarian stimulation, produced more retrievable oocytes and higher odds of live according to Michaeler et al. Fertility and Sterility. 2010: 94:9590-8278. The current AMH test method correlates with the study method with a slope of 0.94. Females at risk of ovarian hyperstimulation syndrome or polycystic ovarian syndrome (PCOS) may exhibit elevated serum AMH concentrations. AMH levels from PCOS patients may be 2 to 5 fold higher than age-appropriate reference interval values. Granulosa cell tumors of the ovary may secrete AMH along with other tumor markers. Elevated AMH is not specific for malignancy, and the assay should not be used exclusively to diagnose or exclude an AMH-secreting ovarian tumor. Rubella IgG [id number] 12:03PMBibianaBayron Test NameResultFlagReference Rubella IgG AntibodyPOSITIVE SOURCE: INTERPRETATIVE COMMENT NEGATIVE: No IgG antibodies specific to Rubella detected. It is likely that the patient has not had a previous exposure to Rubella through infection or vaccination. Alternatively, the patient may have been exposed to Rubella but a failure to respond may indicate immunodeficiency. EQUIVOCAL:Equivocal results; obtain additional sample for retesting. POSITIVE: IgG antibody to Rubella detected. This may indicate that the patient was exposed to Rubella through infection or vaccination. The interpretation of serological tests should take into account the immunological status of the patient. Test results for patients, including immunocompromised patients, neonates, and pediatric patients, reflect their capacity to respond immunologically to the virus as well as their exposure to the pathogen. Patients treated with IVIG may demonstrate altered results in serological assays. TSH WITH REFLEX TO FREE T4 IF [id number] 12:03PMBibiana Bayron Test NameResultFlagReference Thyroid Stimulating Hormone, Serum2.17 mIU/LSee Below Reference Range: 0.44 - 3.98 TSH testing is performed using different testing methodology at [facility]. Direct result comparisons should only be made within the same method. Varicella Zoster IgG [id number] 12:03PMBibiana Bayron Test NameResultFlagReference Varicella Zoster IgG AntibodyNegativeNEGATIVE SOURCE: INTERPRETATIVE COMMENT NEGATIVE: No IgG antibodies specific to VZV detected. It is likely that the patient has not had a previous exposure to VZV through infection or vaccination. Alternatively, the patient may have been exposed to VZV but a failure to respond may indicate immunodeficiency. EQUIVOCAL:Equivocal results; obtain additional sample for retesting. POSITIVE: IgG antibody to VZV detected. This may indicate that the patient was exposed to VZV through infection or vaccination. The interpretation of serological tests should take into account the immunological status of the patient. Test results for patients, including immunocompromised patients, neonates, and pediatric patients, reflect their capacity to respond immunologically to the virus as well as their exposure to the pathogen. Patients treated with IVIG may demonstrate altered results in serological assays. Vitamin D 25-[id number] 12:03PMBayron Mccarty Test NameResultFlagReference Vitamin D 25-Hydroxy, Level17 ng/mLA . DEFICIENCY: < 20 NG/ML INSUFFICIENCY: 20-29 NG/ML SUFFICIENCY: 30-100 NG/ML THIS ASSAY ACCURATELY QUANTIFIES THE SUM OF VITAMIN D3, 25-HYDROXY AND VIT D2,25-HYDROXY. { 17-Hydroxyprogesterone, [id number] 12:03PMBayron Mccarty Test NameResultFlagReference 17-Hydroxyprogesterone, Serum33 ng/dL Unable to flag abnormal result(s), please refer to reference range(s) below: Adult Female Reference Ranges for 17-Hydroxyprogesterone: Pre-Menopausal Mid Follicular: 23 - 102 ng/dL Pre-Menopausal Surge: 67 - 349 ng/dL Pre-Menopausal Mid Luteal: 139 - 431 ng/dL Postmenopausal Phase: < or = 45 ng/dL Female John Stages: II - III Females: 18 - 220 ng/dL IV - V Females: 36 - 200 ng/dL Includes data from J Clin Endocrinol Metab. 1991;73:674-686; J Clin Endocrinol Metab. 1989;69;8835-8898; J Clin Endocrinol Metab. 1994;78:226-270. Pediatr Res 1988;23:525-529. MedLinePlus (accessed 10/25/13). This test was developed and its analytical performance characteristics have been determined by [facility] [place]. It has not been cleared or approved by the U.S. Food and Drug Administration. This assay has been validated pursuant to the CLIA regulations and is used for clinical purposes. DHEA Sulfate, [id number] 12:03Bayron Silva Test NameResultFlagReference DHEA Sulfate, Prylq719 ug/dL65 - 395 MATURITY-BASED REFERENCE RANGES: PUBERTAL (JOHN) STAGE MALE FEMALE --- I 5 - 265 5 - 125 II 15 - 380 15 - 150 III 60 - 505 20 - 535 IV 65 - 560 35 - 485 V 165 - 500 75 - 530 Biotin interference may cause falsely elevated results. Patients taking a Biotin dose of up to 5 mg/day should refrain from taking Biotin for 24 hours before sample collection. Providers may contact their local laboratory for further information. Testosterone Free + [id number] 12:03PMBayron Mccarty Test NameResultFlagReference Testosterone, Total63 ng/dLH2-45 For additional information, please refer to http://education.Sqord/faq/ TotalTestosteroneLCMSMSF AQ165 (This link is being provided for informational/ educational purposes only.) This test was developed and its analytical performance characteristics have been determined by [facility] [place], [place]. It has not been cleared or approved by the U.S. Food and Drug Administration. This assay has been validated pursuant to the CLIA regulations and is used for clinical purposes. Testosterone, Free Serum8.8 pg/mLH0.1-6.4 This test was developed and its analytical performance characteristics have been determined by [facility] [place], [place]. It has not been cleared or approved by the U.S. Food and Drug Administration. This assay has been validated pursuant to the CLIA regulations and is used for clinical purposes. Hemoglobin [id number] 12:03PMBayron Mccarty Test NameResultFlagReference Hemoglobin A1C, Level5.5 % Diagnosis of Diabetes-Adults Non-Diabetic: < or = 5.6% Increased risk for developing diabetes: 5.7-6.4% Diagnostic of diabetes: > or = 6.5% . Monitoring of Diabetes Age (y) Therapeutic Goal (%) Adults: >18 <7.0 Pediatrics: 13-18 <7.5 7-12 <8.0 0- 6 7.5-8.5 [place] [employer]. Diabetes Care 33(S1), May 2009. Estimated Average Tlcbgzh032 MG/DL GC + Chlamydia By Amplified [id number] 12:03PMBayron Mccarty Test NameResultFlagReference N.GONORRHEA,AMPLIFIEDNEG ATIVENegative SOURCE: Urine Chlamydia Trach, AmplifiedNEGATIVENegativ e Hepatitis B Surface [id number] 12:03PMBayron Mccarty Test NameResultFlagReference Hep.B Surface AgNONREACTIVESee Below Reference Range: NONREACTIVE Biotin interference may cause falsely decreased results. Patients taking a Biotin dose of up to 5 mg/day should refrain from taking Biotin for 24 hours before sample collection. Providers may contact their local laboratory for further information. Hepatitis C Antibody [id number] 12:03PMBayron Mccarty Test NameResultFlagReference Hepatitis C-AntibodyNONREACTIVESee Below Reference Range: NONREACTIVE Results from patients taking biotin supplements or receiving high-dose biotin therapy should be interpreted with caution due to possible interference with this test. Providers may contact their local laboratory for further information. HIV 1/2 ANTIGEN/ANTIBODY SCREEN WITH REFLEX TO [id number] 12:03PMBayron Mccarty Test NameResultFlagRefereoneliae HIV 1/2 AG/AB SCREENNONREACTIVESee Below Reference Range: NONREACTIVE HIV Ag/Ab screen is performed using the Siemens Atellica HIV Ag/Ab Combo assay which detects the presence of HIV p24 antigen as well as antibodies to HIV-1 (Group M and O) and HIV-2. SYPHILIS SCREENING WITH [id number] 12:03PMBayron Mccarty Test NameResultFlagReference SYPHILIS TOTAL ANTIBODYNONREACTIVESee Below SOURCE: Reference Range: NONREACTIVE No significant level of Treponema pallidum antibody detected. Repeat testing in 2 to 4 weeks may be considered if early infection or incubating syphilis infection is suspected. Signatures Electronically signed by : Bayron Mccarty MD; Jun 19 2020 10:16AM EST (Author) Normal [facility] CMV IGM ABon 04-20-2020 CMV IGM AB <30.00 Normal [facility] Comment on above: Result Comment: REFE RENCE RANGE: <30.00 AU/mL . Interpretive criteria: <30.00 AU/mL No antibody detected 30.00-34.99 AU/mL Equivocal > or = 35.00 AU/mL Antibody detected . Results from any one IgM assay should not be used as a sole determinant of a current or recent infection. Because an IgM test can yield false positive results and low level IgM antibody may persist for more than 12 months post infection, reliance on a single test result could be misleading. Acute infection is best diagnosed by demonstrating the conversion of IgG from negative to positive. If an acute infection is suspected, consider obtaining a new specimen and submit for both IgG and IgM testing in two or more weeks. Performed By: #### C MVM2 #### [facility] [address] [place] [address] CMV IGG AND IGM ABon 020 CMV IGG AB REACTIVE Abnormal NONREACTIVE [facility] Comment on above: Performed By: #### C MV2 #### [facility] [address] [place] [address] PROGESTERONEon 04-16-2020 PROGESTERONE 10.5 ng/mL Normal [facility] Comment on above: Result Comment: REF VALUES MALE <0.3- 1.2 FOLLICULAR PHASE <0.3- 1.4 LUTEAL PHASE 3.3-25.6 MID-LUTEAL PHASE 4.4-28.0 POSTMENOPAUSAL <0.3- 0.7 FEMALES: 1ST TRIMESTER 11.2- 90.0 2ND TRIMESTER 25.6- 89.4 3RD TRIMESTER 48.4-422.5 . Patients receiving DHEA-S supplements may show false elevation of progesterone for results near 1.0 ng/mL. Contact laboratory at [phone] if alternative testing is needed. Performed By: #### P BOBBY #### [facility] [address] [place] [address] HCG,BETA-QUANTITATIVEon HCG,BETA-QUANTITATIVE <2 Normal [facility] Comment on above: Result Comment: Low- level positive HCG results can be seen in early , in karishma- or post-menopausal females due to normal pituitary HCG production, or with analytic interference. Repeat testing in 48-72 hours can aid in assessing for as results should double in this time period. FSH measurement is recommended in karishma- or post-menopausal females as concurrent elevation of FSH can support pituitary production as the source of the HCG elevation. . Total HCG measurement is performed using the Kor[employer] Access Immunoassay which detects intact HCG and free beta HCG subunit. This test is not indicated for use as a tumor marker. HCG testing is performed using a different test methodology at [facility] than other [facility]. Direct result comparison should only be made within the same method. REF VALUES NON FEMALE <5 MALES <5 Performed By: #### H CGQU #### [address] [id number] DURABILITY ENGINEER - Office Visiton DURABILITY ENGINEER - Office Visit Chief Complaint An interactive audio and video telecommunication system which permits real time communications between the patient (at the originating site) and provider (at the distant site) was utilized to provide this telehealth service. Verbal consent was requested and obtained from JALEESA PAINTING on this date, 04/14/2020 09:30 AM , for a telehealth visit. Pt presents for a FUV to discuss her test results. Roby JEWELL. History of Present Mwdujvw6904/14/2020 9:30AM JALEESA PAINTING , 30 year is contacted for an (audio-visual, or audio only) Telehealth visit. Today's visit was provided through telemedicine conferencing: Using [employer] platform. Consent: The concept of telemedicine? has been described to the patient. Patient has been informed of the anticipated benefits and possible risks. Patient understands the information provided regarding telemedicine, has had the opportunity to ask questions about this information, and all questions have been answered to patient's satisfaction. Patient consents for the use of telemedicine in his/her medical care and authorizes the transmission of any relevant medical information to providers and their staff involved in patient's medical or mental health care. The location of the patient : home The location of the provider: office The following staff and their role did participate in today's encounter visit: Bayron Mccarty MD MARIANA Lazcano is a 30-year-old female who is here today in follow-up of fertility testing. This patient desires to proceed with single-parent procreation with donor sperm. She has a history of oligomenorrhea and obesity. Work-up to date is as seen below: HSG shows a normal cavity and patent right fallopian tube. The left fallopian tube was surgically absent. Seen by Dr. Maradiaga with M, please see his recommendations. Patient was found to be vitamin D deficient and varicella nonimmune. She had varicella vaccination performed in February, second shot received in March. She has also been on vitamin D replacement Patient reports that she has gained weight since her last appointment, and weight is 290 pounds. Her LMP was 03/16/2020. Since gaining weight, patient reports that menses become more irregular, and not, 30 to 40-day intervals. Active Problems Encounter for preconception consultation (V26.49) (Z31.69) Female infertility (628.9) (N97.9) Fertility testing (V26.21) (Z31.41) Irregular menses (626.4) (N92.6) Morbid obesity (278.01) (E66.01) Screening for STD (sexually transmitted disease) (V74.5) (Z11.3) Past Medical History No pertinent past medical history (V49.89) (Z78.9) Surgical History History of Adenoidectomy History of Cholecystectomy Family History No pertinent family history No pertinent family history Social History Never a smoker Never Allergies No Known Drug Allergies Recorded By: Breezy Jasso; 01/24/2020 11:18:28 AM Current Meds Vitamin D 25 MCG (1000 UT) Oral Tablet; Therapy: [id number] to Recorded Dispense: 0 Days ; #: Sufficient Tablet; Refill: 0; KEVIN = N; Record; Last Updated By: Breezy Jasso; 2020 1:15:24 PM Vitals Vital Signs Recorded: 21Uzp3878 09:08AM Height5 ft 6 in Gltoxz071 lb BMI Hotsaxnxla02.81 BSA Calculated2.34 [id number] Gravida1 Para0 Pain Scale0 Physical Exam This is a telehealth appointment Results/Data Anti Mullerian [id number] 12:03PMBayron Mccarty Test NameResultFlagReference Anti Mullerian Hormone6.36 ng/mL For assays employing antibodies, the possibility exists for interference by heterophile antibodies in the samples.1 1.Oswald Crews. Interferences in Immunoassays - still a threat. Clin. Chem. 2000; 46: 3958-2617. This test was developed and its performance characteristics determined by [employer]. It has not been cleared or approved by the Food and Drug Administration. Reference Range: Females 26 - 30y: 1.03 - 11.10 Median 4.20 AMH concentrations of >= 1.06 ng/mL is correlated with a better response to ovarian stimulation, produced more retrievable oocytes and higher odds of live according to Gleicher et al. Fertility and Sterility. 2010: 94:9436-3876. The current AMH test method correlates with the study method with a slope of 0.94. Females at risk of ovarian hyperstimulation syndrome or polycystic ovarian syndrome (PCOS) may exhibit elevated serum AMH concentrations. AMH levels from PCOS patients may be 2 to 5 fold higher than age-appropriate reference interval values. Granulosa cell tumors of the ovary may secrete AMH along with other tumor markers. Elevated AMH is not specific for malignancy, and the assay should not be used exclusively to diagnose or exclude an AMH-secreting ovarian tumor. Anti Mullerian [id number] 12:03PMBayron Mccarty Test NameResultFlagReference Anti Mullerian Hormone6.36 ng/mL For assays employing antibodies, the possibility exists for interference by heterophile antibodies in the samples.1 1.Oswald Crews. Interferences in Immunoassays - still a threat. Clin. Chem. 2000; 46: 4748-4531. This test was developed and its performance characteristics determined by [employer]. It has not been cleared or approved by the Food and Drug Administration. Reference Range: Females 26 - 30y: 1.03 - 11.10 Median 4.20 AMH concentrations of >= 1.06 ng/mL is correlated with a better response to ovarian stimulation, produced more retrievable oocytes and higher odds of live according to Gleicher et al. Fertility and Sterility. 2010: 94:4556-1855. The current AMH test method correlates with the study method with a slope of 0.94. Females at risk of ovarian hyperstimulation syndrome or polycystic ovarian syndrome (PCOS) may exhibit elevated serum AMH concentrations. AMH levels from PCOS patients may be 2 to 5 fold higher than age-appropriate reference interval values. Granulosa cell tumors of the ovary may secrete AMH along with other tumor markers. Elevated AMH is not specific for malignancy, and the assay should not be used exclusively to diagnose or exclude an AMH-secreting ovarian tumor. Rubella IgG [id number] 12:03PMBayron Mccarty Test NameResultFlagReference Rubella IgG AntibodyPOSITIVE SOURCE: INTERPRETATIVE COMMENT NEGATIVE: No IgG antibodies specific to Rubella detected. It is likely that the patient has not had a previous exposure to Rubella through infection or vaccination. Alternatively, the patient may have been exposed to Rubella but a failure to respond may indicate immunodeficiency. EQUIVOCAL:Equivocal results; obtain additional sample for retesting. POSITIVE: IgG antibody to Rubella detected. This may indicate that the patient was exposed to Rubella through infection or vaccination. The interpretation of serological tests should take into account the immunological status of the patient. Test results for patients, including immunocompromised patients, neonates, and pediatric patients, reflect their capacity to respond immunologically to the virus as well as their exposure to the pathogen. Patients treated with IVIG may demonstrate altered results in serological assays. TSH WITH REFLEX TO FREE T4 IF [id number] 12:03PMBayron Mccarty Test NameResultFlagReference Thyroid Stimulating Hormone, Serum2.17 mIU/LSee Below Reference Range: 0.44 - 3.98 TSH testing is performed using different testing methodology at [facility] than at [facility]. Direct result comparisons should only be made within the same method. Varicella Zoster IgG [id number] 12:03PMBayron Mccarty Test NameResultFlagReference Varicella Zoster IgG AntibodyNegativeNEGATIVE SOURCE: INTERPRETATIVE COMMENT NEGATIVE: No IgG antibodies specific to VZV detected. It is likely that the patient has not had a previous exposure to VZV through infection or vaccination. Alternatively, the patient may have been exposed to VZV but a failure to respond may indicate immunodeficiency. EQUIVOCAL:Equivocal results; obtain additional sample for retesting. POSITIVE: IgG antibody to VZV detected. This may indicate that the patient was exposed to VZV through infection or vaccination. The interpretation of serological tests should take into account the immunological status of the patient. Test results for patients, including immunocompromised patients, neonates, and pediatric patients, reflect their capacity to respond immunologically to the virus as well as their exposure to the pathogen. Patients treated with IVIG may demonstrate altered results in serological assays. Vitamin D 25-[id number] 12:03PMBayron Mccarty Test NameResultFlagReference Vitamin D 25-Hydroxy, Level17 ng/mLA . DEFICIENCY: < 20 NG/ML INSUFFICIENCY: 20-29 NG/ML SUFFICIENCY: 30-100 NG/ML THIS ASSAY ACCURATELY QUANTIFIES THE SUM OF VITAMIN D3, 25-HYDROXY AND VIT D2,25-HYDROXY. { 17-Hydroxyprogesterone, [id number] 12:03PMBayron Mccarty Test NameResultFlagReference 17-Hydroxyprogesterone, Serum33 ng/dL Unable to flag abnormal result(s), please refer to reference range(s) below: Adult Female Reference Ranges for 17-Hydroxyprogesterone: Pre-Menopausal Mid Follicular: 23 - 102 ng/dL Pre-Menopausal Surge: 67 - 349 ng/dL Pre-Menopausal Mid Luteal: 139 - 431 ng/dL Postmenopausal Phase: < or = 45 ng/dL Female John Stages: II - III Females: 18 - 220 ng/dL IV - V Females: 36 - 200 ng/dL Includes data from J Clin Endocrinol Metab. 1991;73:674-686; J Clin Endocrinol Metab. 1989;69;3271-2767; J Clin Endocrinol Metab. 1994;78:226-270. Pediatr Res 1988;23:525-529. MedLinePlus (accessed 10/25/13). This test was developed and its analytical performance characteristics have been determined by [facility] [place]. It has not been cleared or approved by the U.S. Food and Drug Administration. This assay has been validated pursuant to the CLIA regulations and is used for clinical purposes. DHEA Sulfate, [id number] 12:03PMBayron Mccarty Test NameResultFlagReference DHEA Sulfate, Rrzmo724 ug/dL65 - 395 MATURITY-BASED REFERENCE RANGES: PUBERTAL (JOHN) STAGE MALE FEMALE --- I 5 - 265 5 - 125 II 15 - 380 15 - 150 III 60 - 505 20 - 535 IV 65 - 560 35 - 485 V 165 - 500 75 - 530 Biotin interference may cause falsely elevated results. Patients taking a Biotin dose of up to 5 mg/day should refrain from taking Biotin for 24 hours before sample collection. Providers may contact their local laboratory for further information. Testosterone Free + [id number] 12:03PMBayron Mccarty Test NameResultFlagReference Testosterone, Total63 ng/dLH2-45 For additional information, please refer to http://education.Sqord/faq/ TotalTestosteroneLCMSMSF AQ165 (This link is being provided for informational/ educational purposes only.) This test was developed and its analytical performance characteristics have been determined by [facility] [place] [place]. It has not been cleared or approved by the U.S. Food and Drug Administration. This assay has been validated pursuant to the CLIA regulations and is used for clinical purposes. Testosterone, Free Serum8.8 pg/mLH0.1-6.4 This test was developed and its analytical performance characteristics have been determined by [facility] [place]. It has not been cleared or approved by the U.S. Food and Drug Administration. This assay has been validated pursuant to the CLIA regulations and is used for clinical purposes. Hemoglobin [id number] 12:03PMBayron Mccarty Test NameResultFlagReference Hemoglobin A1C, Level5.5 % Diagnosis of Diabetes-Adults Non-Diabetic: < or = 5.6% Increased risk for developing diabetes: 5.7-6.4% Diagnostic of diabetes: > or = 6.5% . Monitoring of Diabetes Age (y) Therapeutic Goal (%) Adults: >18 <7.0 Pediatrics: 13-18 <7.5 7-12 <8.0 0- 6 7.5-8.5 [place] [employer]. Diabetes Care 33(S1), May 2009. Estimated Average Tjswwqr498 MG/DL GC + Chlamydia By Amplified [id number] 12:03Bayron Silva Test NameResultFlagReference N.GONORRHEA,AMPLIFIEDNEG ATIVENegative SOURCE: Urine Chlamydia Trach, AmplifiedNEGATIVENegativ e Hepatitis B Surface [id number] 12:03Bayron Silva Test NameResultFlagReference Hep.B Surface AgNONREACTIVESee Below Reference Range: NONREACTIVE Biotin interference may cause falsely decreased results. Patients taking a Biotin dose of up to 5 mg/day should refrain from taking Biotin for 24 hours before sample collection. Providers may contact their local laboratory for further information. Hepatitis C Antibody [id number] 12:03Bayron Silva Test NameResultFlagReference Hepatitis C-AntibodyNONREACTIVESee Below Reference Range: NONREACTIVE Results from patients taking biotin supplements or receiving high-dose biotin therapy should be interpreted with caution due to possible interference with this test. Providers may contact their local laboratory for further information. HIV 1/2 ANTIGEN/ANTIBODY SCREEN WITH REFLEX TO [id number] 12:03PMBayron Mccarty Test NameResultFlagReference HIV 1/2 AG/AB SCREENNONREACTIVESee Below Reference Range: NONREACTIVE HIV Ag/Ab screen is performed using the Siemens SmartHub HIV Ag/Ab Combo assay which detects the presence of HIV p24 antigen as well as antibodies to HIV-1 (Group M and O) and HIV-2. SYPHILIS SCREENING WITH [id number] 12:03PMBayron Mccarty Test NameResultFlagReference SYPHILIS TOTAL ANTIBODYNONREACTIVESee Below SOURCE: Reference Range: NONREACTIVE No significant level of Treponema pallidum antibody detected. Repeat testing in 2 to 4 weeks may be considered if early infection or incubating syphilis infection is suspected. Diagnoses/Problems Irregular menses (626.4) (N92.6) Morbid obesity (278.01) (E66.01) Orders HCG, Beta Quantitative; Status:Active; Requested for:[id number]; Perform:Lab Services - Lab To Draw (Blood Test); Due:13Jul2020;Ordered; For:Irregular menses; Ordered By:Bayron Mccarty; Progesterone, Serum; Status:Active; Requested for:87Pco3138; Perform:Lab Services - Lab To Draw (Blood Test); Due:05Pli4589;Ordered; For:Irregular menses; Ordered By:Bayron Mccarty; Provider Impressions Jaleesa is a 30-year-old female who desires to proceed with single-parent procreation using donor sperm. She has a history of obesity and oligomenorrhea. Last menstrual period was on 03/16/2020. We will plan to check an hCG and progesterone level today, patient to call in for results. If hCG is negative and progesterone does not show ovulation, will prescribe Provera 10 mg p.o. x10 days to bring on a withdrawal bleed. If progesterone shows ovulation, will await menses. The patient is then to use OPK's next cycle to track ovulation, follow-up with cycle day 21 progesterone to see if OPK is truly indicated ovulation. Patient is to follow-up with me after that. In the meantime, the patient will follow up with our nurses regarding introduction to our donor sperm program. CMV testing will need to be completed. 1 Patient was also counseled extensively regarding weight loss and was offered a referral to our comprehensive weight loss clinic. Patient reports that she would like to try on her own at this time. Bayron Mccarty MD [facility] [phone] [place] [phone] [place] Appointment Duration:. 25 minutes; greater than half of the time was spent on counseling. 1 Amended By: Bayron Mccarty; Apr 14 2020 4:50 PM ESTPatient Discussion/Summary Jaleesa is a 30-year-old female who desires to proceed with single-parent procreation using donor sperm. She has a history of obesity and oligomenorrhea. Last menstrual period was on 03/16/2020. We will plan to check an hCG and progesterone level today, patient to call in for results. If hCG is negative and progesterone does not show ovulation, will prescribe Provera 10 mg p.o. x10 days to bring on a withdrawal bleed. If progesterone shows ovulation, will await menses. The patient is then to use OPK's next cycle to track ovulation, follow-up with cycle day 21 progesterone to see if OPK is truly indicated ovulation. Patient is to follow-up with me after that. In the meantime, the patient will follow up with our nurses regarding introduction to our donor sperm program. CMV testing will need to be completed. 1 Patient was also counseled extensively regarding weight loss and was offered a referral to our comprehensive weight loss clinic. Patient reports that she would like to try on her own at this time. Bayron Mccarty MD [facility] [phone] [place] [phone] [place] 1 Amended By: Bayron Mccarty; Apr 14 2020 4:50 PM ESTSignatures Electronically signed by : Bayron Mccarty MD; Apr 14 2020 4:51PM EST (Author) Normal [facility] DURABILITY ENGINEER - Procedure Visiton 1 05-28-2019 DURABILITY ENGINEER - Procedure Visit Chief Complaint pt presents for HSG Active Problems Encounter for preconception consultation (V26.49) (Z31.69) Female infertility (628.9) (N97.9) Fertility testing (V26.21) (Z31.41) Irregular menses (626.4) (N92.6) Morbid obesity (278.01) (E66.01) Screening for STD (sexually transmitted disease) (V74.5) (Z11.3) Past Medical History No pertinent past medical history (V49.89) (Z78.9) Surgical History History of Adenoidectomy History of Cholecystectomy Family History No pertinent family history No pertinent family history Social History Never a smoker Never Allergies No Known Drug Allergies Recorded By: Breezy Jasso; 01/24/2020 11:18:28 AM Current Meds Doxycycline Monohydrate 100 MG Oral Capsule; TAKE 1 CAPSULE EVERY 12 HOURS DAILY; Therapy: [id number] to (Evaluate:[id number]) Requested for: [id number]; Last Rx:[id number] Ordered Rx By: Bayron Mccarty; Dispense: 5 Days ; #:10 Capsule; Refill: 0;For: Fertility testing; KEVIN = N; Verified Transmission to [place] [address]; Msg to Pharmacy: start medication the night before her procedure; Last Updated By: Attributor; 01/24/2020 12:08:27 PM Vitamin D 25 MCG (1000 UT) Oral Tablet; Therapy: [id number] to Recorded Dispense: 0 Days ; #: Sufficient Tablet; Refill: 0; KEVIN = N; Record; Last Updated By: Breezy Jasso; 2020 1:15:24 PM Procedure HSG risks, benefits, alternatives, and personnel discussed with patient who agreed to proceed. Procedural time out Done in room where procedure done: [X] YES Done just before starting procedure: [X] YES All members of procedural team involved in time-out: [X] YES Active communication used: [X] YES All team members agreed on procedure: [X] YES Patient correctly identified by two identifiers: [X] YES Correct side and site identified [X] YES All needed special equipment/instruments available: [X] YES Prior to the start of the procedure a time out was taken and the following were verified: the identity of the patient using two patient identifiers. Urine test was performed and was negative. Risks, benefits, and alternatives of the procedure were explained to the patient and informed consent was obtained. The patient was placed in the dorsal lithotomy position and a sterile speculum was placed in the vagina. The cervix was sterilized with Betadine x 3. The anterior lip of the cervix was grasped with a single-tooth tenaculum. The acorn cannula was then placed in the cervix and secured to the tenaculum. The patient was positioned and images were taken with fluoroscopy as dye was inserted through the cannula. All instruments were then removed. The patient tolerated the procedure well and was discharged home the same day without complications. The patient was counseled re the above findings and shown pictures at the time of the exam. Uterus: Normal contour without filling defects Fallopian Tubes: Left fallopian tube: Proximal fill without spill, findings consistent with tubal occlusion, pt reported history of partial salpingectomy Right fallopian tube: fill and spill, normal architecture, patent Based on these findings, my recommendation is: [X] No further follow up required [] Further follow up required - chart forwarded to primary MD Provider Impressions HSG demonstrates Normal uterine contour without filling defects Left fallopian tube: Proximal fill without spill, findings consistent with tubal occlusion, pt reported history of partial salpingectomy Right fallopian tube: fill and spill, normal architecture, patent Discussed findings with pt, pt to schedule FUV with dr. Mccarty Patient Discussion/Summary HSG demonstrates Normal uterine contour without filling defects Left fallopian tube: Proximal fill without spill, findings consistent with tubal occlusion, pt reported history of partial salpingectomy Right fallopian tube: fill and spill, normal architecture, patent Discussed findings with pt, pt to schedule FUV with dr. Mccarty Signatures Electronically signed by : Kelle Vaz APRN-DYNAMOMETER TESTER; Mar 28 2020 4:10PM EST (Author) Normal [facility] DURABILITY ENGINEER - Office Visiton 11-0 DURABILITY ENGINEER - Office Visit Chief Complaint The patient is being seen today at the request of for M Consultation regarding Preconception; SILVIA Patient; Morbid Obesity- BMI 47. History of Present IllnessDear Dr. Mccarty, We had the opportunity to see your patient Jaleesa Painting in the office of Maternal Medicine on 2020. As you are aware she is a 30 year old who we saw in preconception consultation for obesity. Other than obesity Dr. Painting denies any other significant past medical history. Specifically she denies a history of CHTN or TIIDM. Her BP at her most recent visit was normal and her HgA1c in January was 5.5%. She is considering single parent procreation. Her usual Chalk Molding Machine Operator with whom she would plan to follow with for care in a future is Dr. Ng in [place]. Active Problems Female infertility (628.9) (N97.9) Fertility testing (V26.21) (Z31.41) Irregular menses (626.4) (N92.6) Morbid obesity (278.01) (E66.01) Screening for STD (sexually transmitted disease) (V74.5) (Z11.3) Past Medical History No pertinent past medical history (V49.89) (Z78.9) Surgical History History of Adenoidectomy History of Cholecystectomy Family History No pertinent family history No pertinent family history Social History Never a smoker Never Allergies No Known Drug Allergies Recorded By: Breezy Jasso; 01/24/2020 11:18:28 AM Current Meds Doxycycline Monohydrate 100 MG Oral Capsule; TAKE 1 CAPSULE EVERY 12 HOURS DAILY; Therapy: [id number] to (Evaluate:[id number]) Requested for: 02Awm4732; Last Rx:[id number] Ordered Rx By: Bayron Mccarty; Dispense: 5 Days ; #:10 Capsule; Refill: 0; For: Fertility testing; KEVIN = N; Verified Transmission to [place] [address]; Msg to Pharmacy: start medication the night before her procedure; Last Updated By: Elham HighconTess; 01/24/2020 12:08:27 PM Vitamin D 25 MCG (1000 UT) Oral Tablet; Therapy: [id number] to Recorded Dispense: 0 Days ; #: Sufficient Tablet; Refill: 0; KEVIN = N; Record; Last Updated By: Breezy Jasso; 2020 1:15:24 PM Vitals Vital Signs Recorded: 13Mar2020 01:08PM Heart Rate96 Bermzkdp108 Ipggomsve81 Height5 ft 6 in [place]691 lb BMI Xtbijpzrxx63.91 BSA Calculated2.39 Tobacco Useb) No Fall Screeninga) No falls within the last year [id number] Gravida1 Para0 Pain Scale0 Diagnoses/Problems Morbid obesity (278.01) (E66.01) Encounter for preconception consultation (V26.49) (Z31.69) Provider Impressions The range of obstetric complications associated with obesity were reviewed, including gestational diabetes, pre-eclampsia and macrosomia. Both early and standard screening for gestational diabetes would be needed. Implications and treatment of gestational diabetes should it occur was reviewed. The optimal route of delivery in obese women is vaginal, and obesity alone is not an indication for a , though the risk of surgical delivery is increased both secondary to increased weight and potentially impaired myometrial function. Should a be necessary there are increased surgical risks including wound complications. Obesity is also associated with a small increase in the risk of congenital anomalies, the detection of which can be impaired secondary to technical limitations of ultrasound secondary to increased maternal weight. Obesity is also associated with a small increase in stillbirth risk. Thus we would recommend weekly NSTs starting at 34 weeks as well as serial ultrasound for biometry in the late second and third trimester. I reviewed that significant weight loss is not recommended during itself and thus the optimal time for weight loss is prior to conception. Even modest weight reductions could significantly reduce obstetric risks. Thank you for the opportunity to participate in your patient?s care. A total of 40 minutes was spent on this consultation of which greater than 50% was buxb-al-wtfx counseling. Weight loss prior to conception is encouraged though we do not have a contraindication to conception at this time. We would be happy to see her back in a future as needed though follow up formal consultation is not required. Please feel free to contact us regarding any questions or concerns. Sincerely, Charan Maradiaga MD, MS Maternal Medicine Signatures Electronically signed by : Charan Maradiaga MD; Mar 20 2020 11:00AM EST (Author) Reviewed by : Bayron Mccarty MD; Jun 12 2020 4:50PM EST Normal [facility] ANTI MULLERIAN HORMONEon ANTI MULLERIAN HORMONE 6.36 ng/mL Normal [facility] Comment on above: Result Comment: For assays employing antibodies, the possibility exists for interference by heterophile antibodies in the samples.1 1.Oswald Crews. Interferences in Immunoassays - still a threat. Clin. Chem. 2000; 46: 5298-2269. This test was developed and its performance characteristics determined by [facility]. It has not been cleared or approved by the Food and Drug Administration. Reference Range: Females 26 - 30y: 1.03 - 11.10 Median 4.20 AMH concentrations of >= 1.06 ng/mL is correlated with a better response to ovarian stimulation, produced more retrievable oocytes and higher odds of live according to Carey et al. Fertility and Sterility. 2010: 94:0012-1010. The current AMH test method correlates with the study method with a slope of 0.94. Females at risk of ovarian hyperstimulation syndrome or polycystic ovarian syndrome (PCOS) may exhibit elevated serum AMH concentrations. AMH levels from PCOS patients may be 2 to 5 fold higher than age-appropriate reference interval values. Granulosa cell tumors of the ovary may secrete AMH along with other tumor markers. Elevated AMH is not specific for malignancy, and the assay should not be used exclusively to diagnose or exclude an AMH-secreting ovarian tumor. Performed By: #### A #### [employer] [address] [place] [address] [id number] 17-HYDROXYPROGESTERONEon 17-HYDROXYPROGESTERON E 33 ng/dL Normal [facility] Comment on above: Result Comment: Unable to flag abnormal result(s), please refer to reference range(s) below: Adult Female Reference Ranges for 17-Hydroxyprogesterone: Pre-Menopausal Mid Follicular: 23 - 102 ng/dL Pre-Menopausal Surge: 67 - 349 ng/dL Pre-Menopausal Mid Luteal: 139 - 431 ng/dL Postmenopausal Phase: < or = 45 ng/dL Female John Stages: II - III Females: 18 - 220 ng/dL IV - V Females: 36 - 200 ng/dL Includes data from J Clin Endocrinol Metab. 1991;73:674-686; J Clin Endocrinol Metab. 1989;69;6324-2703; J Clin Endocrinol Metab. 1994;78:226-270. Pediatr Res 1988;23:525-529. MedLinePlus (accessed 10/25/13). This test was developed and its analytical performance characteristics have been determined by [place]. It has not been cleared or approved by the U.S. Food and Drug Administration. This assay has been validated pursuant to the CLIA regulations and is used for clinical purposes. Performed By: #### 1 7OHP #### [facility] [address] [place], [place] TESTOST,FREE AND TOTALon TESTOSTERONE TOT.LC/MS/MS 63 ng/dL High 2-45 [facility] Comment on above: Result Comment: For additional information, please refer to http://education.[employer]/faq/ QnwxjIiohggvrekgfLTGMUFFDI531 (This link is being provided for informational/ educational purposes only.) This test was developed and its analytical performance characteristics have been determined by [employer] [place], [place]. It has not been cleared or approved by the U.S. Food and Drug Administration. This assay has been validated pursuant to the CLIA regulations and is used for clinical purposes. Performed By: #### G [facility] #### [facility] [address] [place] [address] TESTOSTERONE,FREE 8.8 pg/mL High 0.1-6.4 [facility] Comment on above: Result Comment: This test was developed and its analytical performance characteristics have been determined by [employer] [place], [place]. It has not been cleared or approved by the U.S. Food and Drug Administration. This assay has been validated pursuant to the CLIA regulations and is used for clinical purposes. Performed By: #### G [facility] #### [facility] [address] [place] [address] DHEA SULFATEon 01-25-2020 DHEA SULFATE 214 ug/dL Normal 65 - 395 [facility] Comment on above: Result Comment: MATU RITY-BASED REFERENCE RANGES: PUBERTAL (JOHN) STAGE MALE FEMALE I 5 - 265 5 - 125 II 15 - 380 15 - 150 III 60 - 505 20 - 535 IV 65 - 560 35 - 485 V 165 - 500 75 - 530 Biotin interference may cause falsely elevated results. Patients taking a Biotin dose of up to 5 mg/day should refrain from taking Biotin for 24 hours before sample collection. Providers may contact their local laboratory for further information. Performed By: #### G [facility] #### [facility] [address] [place] [address] GC + CHLAMYDIA BY AMPLIFIED DETECTIONon 01-25-2020 CHLAMYDIA TRACH.,AMPLIFIED Negative Normal Negative [facility] Comment on above: Performed By: #### G CCHA #### [facility] [address] [place], [place] N.GONORRHEA,AMPLIFIED Negative Normal Negative [facility] Comment on above: Performed By: #### G CCHA #### [facility] [address] [place], [place] HEPATITIS B SURFACE AGon HEP.B SURFACE AG NONREACTIVE Normal NONREACTIVE [facility] Comment on above: Result Comment: Biot in interference may cause falsely decreased results. Patients taking a Biotin dose of up to 5 mg/day should refrain from taking Biotin for 24 hours before sample collection. Providers may contact their local laboratory for further information. Performed By: #### G [facility] #### [facility] [address] [place], [place] HEPATITIS C ABon 01-25-2020 HEPATITIS C AB NONREACTIVE Normal NONREACTIVE [facility] Comment on above: Result Comment: Resu lts from patients taking biotin supplements or receiving high-dose biotin therapy should be interpreted with caution due to possible interference with this test. Providers may contact their local laboratory for further information. Performed By: #### H CVAB #### [facility] [address] [place], [place] HIV ANTIGEN/ANTIBODY SCREENo n 01-25-2020 HIV AG/AB SCREEN NONREACTIVE Normal NONREACTIVE [facility] Comment on above: Result Comment: HIV Ag/Ab screen is performed using the Siemens SmartHub HIV Ag/Ab Combo assay which detects the presence of HIV p24 antigen as well as antibodies to HIV-1 (Group M and O) and HIV-2. Performed By: #### G CCHA #### [facility] [address] [place], [place] RUBELLA IGG ABon 01-25-2020 RUBELLA IGG AB Positive Normal [facility] Comment on above: Result Comment: INTE RPRETATIVE COMMENT NEGATIVE: No IgG antibodies specific to Rubella detected. It is likely that the patient has not had a previous exposure to Rubella through infection or vaccination. Alternatively, the patient may have been exposed to Rubella but a failure to respond may indicate immunodeficiency. EQUIVOCAL:Equivocal results; obtain additional sample for retesting. POSITIVE: IgG antibody to Rubella detected. This may indicate that the patient was exposed to Rubella through infection or vaccination. The interpretation of serological tests should take into account the immunological status of the patient. Test results for patients, including immunocompromised patients, neonates, and pediatric patients, reflect their capacity to respond immunologically to the virus as well as their exposure to the pathogen. Patients treated with IVIG may demonstrate altered results in serological assays. Performed By: #### R UBIG #### [facility] [address] [place] [address] SYPHILIS SCREENING WITH REFL EXon 01-25-2020 SYPHILIS TOTAL AB NONREACTIVE Normal NONREACTIVE [facility] Comment on above: Result Comment: No s ignificant level of Treponema pallidum antibody detected. Repeat testing in 2 to 4 weeks may be considered if early infection or incubating syphilis infection is suspected. Performed By: #### S YPHR #### [facility] [address] [place] [address] TSH WITH REFLEX TO FREE T4 I F ABNORMALon 01-25-2020 TSH Qn 2.17 m[IU]/L Normal 0.44 - 3.98 [facility] Comment on above: Result Comment: TSH testing is performed using different testing methodology at [facility] than at other [facility]. Direct result comparisons should only be made within the same method. Performed By: #### G CCHA #### [facility] [address] [place] [address] VARICELLA ZOSTER IGG ABon VARICELLA ZOSTER IGG AB Negative Normal NEGATIVE [facility] Comment on above: Result Comment: INTE RPRETATIVE COMMENT NEGATIVE: No IgG antibodies specific to VZV detected. It is likely that the patient has not had a previous exposure to VZV through infection or vaccination. Alternatively, the patient may have been exposed to VZV but a failure to respond may indicate immunodeficiency. EQUIVOCAL:Equivocal results; obtain additional sample for retesting. POSITIVE: IgG antibody to VZV detected. This may indicate that the patient was exposed to VZV through infection or vaccination. The interpretation of serological tests should take into account the immunological status of the patient. Test results for patients, including immunocompromised patients, neonates, and pediatric patients, reflect their capacity to respond immunologically to the virus as well as their exposure to the pathogen. Patients treated with IVIG may demonstrate altered results in serological assays. Performed By: #### V ARZG #### [facility] [address] [place] [address] VITAMIN D, 25-HYDROXYon 01-10 VITAMIN D, 25-HYDROXY 17 ng/mL Abnormal [facility] Comment on above: Result Comment: . DEFICIENCY: < 20 NG/ML INSUFFICIENCY: 20-29 NG/ML SUFFICIENCY: 30-100 NG/ML THIS ASSAY ACCURATELY QUANTIFIES THE SUM OF VITAMIN D3, 25-HYDROXY AND VIT D2,25-HYDROXY. { Performed By: #### G CCHA #### [facility] [address] [place] [address] GC + CHLAMYDIA BY AMPLIFIED DETECTIONon 01-24-2020 Lab Specimen Source Urine Normal [facility] Comment on above: Performed By: #### G CCHA #### [facility] [address] [place] [address] HEMOGLOBIN A1Con 01-24-2020 HbA1c (Bld) [Mass fraction] 5.5 % Normal [facility] Comment on above: Result Comment: Diag nosis of Diabetes-Adults Non-Diabetic: < or = 5.6% Increased risk for developing diabetes: 5.7-6.4% Diagnostic of diabetes: > or = 6.5% . Monitoring of Diabetes Age (y) Therapeutic Goal (%) Adults: >18 <7.0 Pediatrics: 13-18 <7.5 7-12 <8.0 0- 6 7.5-8.5 [place] [employer]. Diabetes Care 33(S1), May 2009. Performed By: #### H BA1E #### [facility] [address] [place] [address] HbA1c (Bld) [Mass fraction] 111 MG/DL Normal [facility] Comment on above: Performed By: #### H BA1E #### [facility] [address] [place] [address] DURABILITY ENGINEER - Office Visiton 01-10 DURABILITY ENGINEER - Office Visit Chief Complaint 29 year old patient being seen today for New Patient Fertility Consultation to discuss options. History of Present IllnessSep 2019 11:15AM Consult from: self History of present illness: Ms. JALEESA PAINTING is a 29 year female who presents with concerns regarding infertility. She has attempted for 2 years in past without success. He Boyfriend is currently incarcerated, and will be in [facility] until 2026. She is interested in pursuing fertility testing today, and pending these results would potentially be interested in single-parent procreation with donor sperm. She is not currently sexually active. She has a history of ectopic in 2011, which [place] [facility] [place] has a remote history of gonorrhea and chlamydia in the past, both of which were treated. The patient reports that she recently lost a significant amount of weight with diet and exercise, reducing her weight from about 315 pounds to 260 pounds. When her weight was down, she reported having normal, monthly menses. She since has gained some of the weight back, and weighs approximately 290 pounds. When she gained this weight back, menses have become increasingly irregular. OB Hx: G1,P0 MENSTRUAL HISTORY- LMP: 12/27/2019 Menarche: 13 Cycle characteristics: 4-5 day cycle every 30 days Symptoms: Heavy bleeding with no severe pain CASER HISTORY: STDs: Yes, remote history of gonorrhea and chlamydia as above Paps: 12/30/2019 Mammo: No Coitus: None x/fertile week Pelvic pain: No Pain with intercourse, bowel movements or full bladder: No PMH: None PSH: Adenoidectomy, Gallbladder removal, laparoscopic salpingectomy SOCIAL HISTORY- /together: Single Occupation: Toxic habits:Non smoker, No Alcohol use Exercise Hx:Yes PRIOR EVALUATION / TREATMENT -none Fam Hx: None Meds: No Medications All: NKDA REVIEW OF SYSTEMS Generally well Recent changes in weight: As above Vision changes or headaches: None Galactorrhea: No Acne: None Oily skin: No Excessive hair growth: No Active Problems Female infertility (628.9) (N97.9) Fertility testing (V26.21) (Z31.41) Irregular menses (626.4) (N92.6) Morbid obesity (278.01) (E66.01) Past Medical History No pertinent past medical history (V49.89) (Z78.9) Surgical History History of Adenoidectomy History of Cholecystectomy Family History No pertinent family history No pertinent family history Social History Never a smoker Never Allergies No Known Drug Allergies Recorded By: Breezy Jasso; 01/24/2020 11:18:28 AM Current Meds No Reported Medications Recorded KEVIN = N; ; Last Updated By: Breezy Jasso; 01/24/2020 12:05:52 PM Vitals Vital Signs Recorded: 24Jan2020 11:13AM Ezcwgxwzohh43.7 F Heart Eeem910 Pbsnjmgp477 Kabcizpwg90 Height5 ft 6 in Nrfuff152 lb BMI Qmfcdrqmla22.13 BSA Calculated2.35 Tobacco Useb) No Fall Screeninga) No falls within the last year [id number] Gravida1 Para0 Pain Scale0 Diagnoses/Problems Female infertility (628.9) (N97.9) Fertility testing (V26.21) (Z31.41) Morbid obesity (278.01) (E66.01) Irregular menses (626.4) (N92.6) Screening for STD (sexually transmitted disease) (V74.5) (Z11.3) *Orders Anti Mullerian Hormone; Status:Active; Requested for:24Jan2020; Perform:Lab Services - Lab To Draw (Non-Blood Test); Due:73Tyg5927;Ordered; For:Female infertility, Fertility testing, Irregular menses, Morbid obesity; Ordered By:Bayron Mccarty; Start: Doxycycline Monohydrate 100 MG Oral Capsule; TAKE 1 CAPSULE EVERY 12 HOURS DAILY Rx By: Bayron Mccarty; Dispense: 5 Days ; #:10 Capsule; Refill: 0; For: Fertility testing; KEVIN = N; Verified Transmission to [place] [id number]; [facility] [place] [facility] start medication the night before her procedure; Last Updated By: Cindi Lizarraga; 01/24/2020 12:08:27 PM Maternal Medicine Referral Evaluation and Treatment Evaluate AND Treat Status: Hold For - Scheduling Requested for: [id number] Ordered; For: Morbid obesity; Ordered By: Bayron Mccarty Performed: Due: 98Yki4560 17-Hydroxyprogesterone, Serum; Status:Active; Requested for:58Jbu1616; Perform:Lab Services - Lab To Draw (Blood Test); Due:52Cvt6556;Ordered; For:Screening for STD (sexually transmitted disease); Ordered By:Bayron Mccarty; DHEA Sulfate, Serum; Status:Active; Requested for:41Wfl5666; Perform:Lab Services - Lab To Draw (Blood Test); Due:93Rks2275;Ordered; For:Screening for STD (sexually transmitted disease); Ordered By:Bayron Mccarty; Hemoglobin A1C; Status:Active; Requested for:04Xbb2073; Perform:Lab Services - Lab To Draw (Blood Test); Due:19Vzd9308;Ordered; For:Screening for STD (sexually transmitted disease); Ordered By:Bayron Mccarty; Rubella IgG Antibody; Status:Active; Requested for:66Qjq1599; Perform:Lab Services - Lab To Draw (Blood Test); Due:09Abj4858;Ordered; For:Screening for STD (sexually transmitted disease); Ordered By:Bayron Mccarty; Testosterone Free + Total; Status:Active; Requested for:50Kbb9657; Perform:Lab Services - Lab To Draw (Blood Test); Due:10Lyy6897;Ordered; For:Screening for STD (sexually transmitted disease); Ordered By:Bayron Mccarty; TSH WITH REFLEX TO FREE T4 IF ABNORMAL; Status:Active; Requested for:89Kya2639; Perform:Lab Services - Lab To Draw (Blood Test); Due:98Sjb9421;Ordered; For:Screening for STD (sexually transmitted disease); Ordered By:Bayron Mccarty; Ultrasound Pelvis Transvaginal; Status:Hold For - Scheduling; Requested for:24Jan2020; Perform:[facility]; Order Comments:will call with menses to schedule; Due:82Ojw4145;Ordered; For:Screening for STD (sexually transmitted disease); Ordered By:Bayron Mccarty; Radiologist to Determine Optimal Study : Y What are the patient's signs and symptoms? : fert testing Varicella Zoster IgG Antibody; Status:Active; Requested for:30Rwv3546; Perform:Lab Services - Lab To Draw (Blood Test); Due:83Lpl6853;Ordered; For:Screening for STD (sexually transmitted disease); Ordered By:Bayron Mccarty; Vitamin D 25-Hydroxy; Status:Active; Requested for:40Glr7312; Perform:Lab Services - Lab To Draw (Blood Test); Due:14Obv0374;Ordered; For:Screening for STD (sexually transmitted disease); Ordered By:Bayron Mccarty; Xray Hysterosalpingogram; Status:Hold For - Scheduling; Requested for:06Zlc4629; Perform:[facility]; Order Comments:will call with menses to schedule. schedule between CD5-12. start doxycycline night prior to procedure; Due:98Ihg8524;Ordered; For:Screening for STD (sexually transmitted disease); Ordered By:Bayron Mccarty; Radiologist to Determine Optimal Study : Y What are the patient's signs and symptoms? : fert testing Tobacco Use Screening; Status:Complete; Done: 98Gnr6660 Perform:Not Applicable;Ordered; For:SocHx: Never a smoker; Ordered By:Breezy Jasso; Screening for STD (sexually transmitted disease) (V74.5) (Z11.3) Provider Impressions 29 year old with Irregular menses, obesity, and infertility who is interested in fertility testing and possibly single parent procreation. We discussed causes of infertility including hormonal, egg quality issues, structural problems such as endometriosis, adhesions, or tubal problems, uterine factors such as polyps or fibroids, and sperm issues. Reviewed evaluation of such as well. We discussed methods for achieving in some detail including superovulation and IVF. Plan: [x] MFM Referral [x] 1 Pelvic US with antral follicle count - will call to schedule 1 [x] HSG: call with next period to schedule - Rx for Doxycycline sent to her home pharmacy ([facility] in [place]) [ ] Day 3 FSH, LH, E2 [x] AMH [x] TSH [x] Prolactin [x] Testosterone, DHEAS [x] HgA1C [x] STD screening [x ] Preconceptual screening including Rubella,Varicella, Blood type [ ] Genetic Screen with [email or web address] - will consider [ ] Take vitamins [x] Return to see EXCHANGE ARCHITECT after workup complete to discuss management plan [x] Education: New infertility packet to be mailed to patient Appointment Duration:. 45 minutes; greater than half of the time was spent on counseling. 1 Amended By: Bayron Mccarty; Jan 24 2020 1:39 PM ESTPatient Discussion/Summary COVID-19 Counseling: The risks of embarking upon fertility treatment in the midst of the ongoing COVID-19 pandemic were discussed at length. We discussed that the risks of COVID-19 infection in are still largely unknown, since the pandemic has not been ongoing for 9 months yet. Data so far has overall been reassuring; no increased risk of defects from women with SARS viral infections in first trimester in prior outbreaks. No maternal- transmission confirmed to date. Potential for increased risk of miscarriage due to the high fever associated with infection. Early data regarding infection in the third trimester is showing possible increased risk of labor or growth restriction. It does not seem that women who become infected have a more severe course of illness. If a woman has an active infection at the time of delivery, currently recommending quarantine away from the for up to 2 weeks to minimize risk of infection. The patient can still pump breast milk and have another caregiver feed the baby. Zika Counseling: Discussed risk of transmission of Zika virus and its prevalence. Discussed risk to fetus. Information given to the couple regarding the virus. Discouraged travel to these areas. Genetic counseling: Offered couple CF, SMA, and thalassemia testing per ACOG guidelines. Pt will consider at this time and let us know if she would like to proceed. Also discussed expanded carrier screening. If this patient desires to proceed with this testing, we will have her meet with our Genetic counselor and look into prior authorization. Financial counseling: We will set up an appointment for this patient to meet with our office's financial counselor. Signatures Electronically signed by : Bayron Mccarty MD; Jan 24 2020 1:40PM EST (Author) [employer] SYPHILIS SCREENING WITH REFL EXon 01-24-2020 Lab Specimen Source Normal [facility] Comment on above: Performed By: #### S YPHR #### [facility] [address] [place] [address] Performed By: #### V ARZG #### [facility] [address] [place] [address] Performed By: #### R UBIG #### [facility] [address] [place] [address] Vital Signs Date Time Vital Sign Value Performing Clinician Facility 10-06-2023 17:42-0400 Body height 167.64 cm Services [facility] Work Phone: [facility] 10-06-2023 17:42-0400 Body temperature 98.3 [degF] Services [employer] Work Phone: [facility] 10-06-2023 17:42-0400 Body weight 134 kg Services [employer] Work Phone: [facility] 10-06-2023 17:42-0400 Diastolic blood pressure 94 mm[Hg] Services [employer] Work Phone: [facility] 10-06-2023 17:42-0400 Heart rate 98 /min Services [facility] Work Phone: [facility] 10-06-2023 17:42-0400 Respiratory rate 18 /min Services [facility] Work Phone: [facility] 10-06-2023 17:42-0400 SaO2% (BldA) [Mass fraction] 100 % Services [facility] [employer] Work Phone: [facility] 10-06-2023 17:42-0400 Systolic blood pressure 142 mm[Hg] Services [facility] Work Phone: [facility] 09-17-2023 14:22-0400 Body height 167.6 cm Anna Ortiz [facility] 09-17-2023 14:22-0400 Body mass index (BMI) [Ratio] 47.61 kg/m2 Anna Ortiz [facility] 09-17-2023 14:22-0400 Body weight 133.[address] [facility] 08-20-2023 13:05-0400 Body height 167.6 cm Tonya Senior APRN.DYNAMOMETER TESTER Work Phone: [facility] 08-20-2023 13:05-0400 Body weight 133.81 kg Tonya Senior APRN.DYNAMOMETER TESTER Work Phone: [facility] 08-07-2023 15:23-0400 Body height 168.91 cm Services [employer] Work Phone: [facility] 08-07-2023 15:23-0400 Body mass index (BMI) [Ratio] 46.9 kg/m2 Services [employer] Work Phone: [facility] 08-07-2023 15:23-0400 Body weight 133.89 kg Services [employer] Work Phone: [facility] 08-07-2023 15:23-0400 Diastolic blood pressure 83 mm[Hg] Services [employer] Work Phone: [facility] 08-07-2023 15:23-0400 Heart rate 101 /min Services [employer] Work Phone: [facility] 08-07-2023 15:23-0400 Respiratory rate 18 /min Services [employer] Work Phone: [facility] 08-07-2023 15:23-0400 SaO2% (BldA) [Mass fraction] 98 % Services [employer] Work Phone: [facility] 08-07-2023 15:23-0400 Systolic blood pressure 120 mm[Hg] Services [employer] Phone: [facility] 06-13-2023 11:00-0500 Body height 168.28 cm Nicholas [employer] Other [facility] 06-13-2023 11:00-0500 Body mass index (BMI) [Ratio] 48.53 kg/m2 Nicholas [employer] Other [employer] Other 06-13-2023 11:00-0500 Body weight 137.44 kg [email or web address] Other [employer] Other 06-13-2023 11:00-0500 Body weight 137.43 kg Services [employer] Work Phone: [facility] 06-13-2023 11:00-0500 Diastolic blood pressure 82 mm[Hg] Nicholas Michaels Other [facility] 06-13-2023 11:00-0500 Respiratory rate 18 /min Nicholas Michaels Other [employer] Other 06-13-2023 11:00-0500 SaO2% (BldA) [Mass fraction] 97 % Nicholas Michaels Other [employer] Other 06-13-2023 11:00-0500 Systolic blood pressure 120 mm[Hg] Nicholas Michaels Other [facility] 01-08-2023 10:45-0400 Body height 168.28 cm Nicholas Michaels Other [employer] Other 01-08-2023 10:45-0400 Body mass index (BMI) [Ratio] 52.89 kg/m2 Nicholas Michaels Other [employer] Other 01-08-2023 10:45-0400 Body weight 149.78 kg Nicholas Michaels Other [employer] Other 01-08-2023 10:45-0400 Diastolic blood pressure 81 mm[Hg] Nicholas Michaels Other [employer] Other 01-08-2023 10:45-0400 Respiratory rate 18 /min Nicholas Michaels Other [employer] Other 01-08-2023 10:45-0400 SaO2% (BldA) [Mass fraction] 97 % Nicholas Michaels Other [employer] Other 01-08-2023 10:45-0400 Systolic blood pressure 122 mm[Hg] Nicholas Michaels Other [employer] Other 06-18-2022 16:57-0500 Body height 167.64 cm [facility] Work Phone: [facility] 06-18-2022 16:57-0500 Body weight 157 kg [facility] Work Phone: [facility] 06-18-2022 16:56-0500 Body temperature 98.3 [degF] [facility] Work Phone: [facility] 06-18-2022 16:56-0500 Diastolic blood pressure 67 mm[Hg] [facility] Work Phone: [facility] 06-18-2022 16:56-0500 Heart rate 95 /min [facility] Work Phone: [facility] 06-18-2022 16:56-0500 Respiratory rate 20 /min [facility] Work Phone: [facility] 06-18-2022 16:56-0500 SaO2% (BldA) [Mass fraction] 97 % [facility] Work Phone: [facility] 06-18-2022 16:56-0500 Systolic blood pressure 158 mm[Hg] [facility] Work Phone: [facility] 12-02-2021 20:26-0400 Body height 167.64 cm [facility] Work Phone: [facility] 12-02-2021 20:26-0400 Body temperature 98.2 [degF] [facility] Work Phone: [facility] 12-02-2021 20:26-0400 Body weight 144.24 kg [facility] Work Phone: [facility] 12-02-2021 20:26-0400 Diastolic blood pressure 89 mm[Hg] [facility] Work Phone: [facility] 12-02-2021 20:26-0400 Heart rate 104 /min [facility] Work Phone: [facility] 12-02-2021 20:26-0400 Respiratory rate 20 /min Services [facility] Work Phone: [facility] 12-02-2021 20:26-0400 SaO2% (BldA) [Mass fraction] 96 % Services [facility] Work Phone: [facility] 12-02-2021 20:26-0400 Systolic blood pressure 156 mm[Hg] Services [facility] Work Phone: [facility] 06-19-2020 11:10-0500 BMI (Body Mass Index) 46.65 kg/m2 Bayron Bibiana OZ-HYCEP-Lmiwgm 310 [facility] Work Phone: 06-19-2020 11:10-0500 Body weight 131.09 kg Bayron Bibiana QN-FFBSC-Pcsyoy 310 [facility] Work Phone: 06-19-2020 11:10-0500 BSA (Body Surface Area) 2.34 m2 Bayron Bibiana BD-KUXCM-Vfpcye 310 [facility] Work Phone: 06-19-2020 11:10-0500 Height 167.64 cm Bayron Bibiana FK-PROYT-Asjgwm 310 [facility] Work Phone: 06-19-2020 11:10-0500 1 1 Bayron Bibiana TK-NFYLZ-Onwuoj 310 IV[facility] Work Phone: Comment on above: 06-19-2020 11:10-0500 0 1 Bayron Bibiana CC-SFHFI-Wvcjlx 310 IV[facility] Work Phone: Comment on above: Para Pain Scale Encounters Encounter Date Encounter Type Care Provider Facility Start: 10-30-2023 End: 10-30-2023 ambulatory Not Available Start: 10-09-2023 End: 10-09-2023 ambulatory LATONIA GREENE Facility:[facility] Start: 10-06-2023 End: 10-06-2023 Emergency department patient visit Services [facility] Work Phone: [facility] Work Phone: Start: 09-17-2023 End: 09-17-2023 ambulatory ANNA ORTIZ Facility:[facility] Start: 09-17-2023 End: 09-17-2023 Nutrition therapy Anna Guevarabertson [facility] Comment on above: Obesity, Class III, BMI 40-49.9 (morbid obesity) (HCC) (Primary Dx); Dietary counseling Start: 09-17-2023 End: 09-17-2023 Telemedicine consultation with patient Anna Ortiz [facility] Start: 09-15-2023 Admission to [facility] Tonya Senoir APRN.DYNAMOMETER TESTER Work Phone: General Surgery Comment on above: Results Start: 09-15-2023 E-mail encounter dena m caregiver Tonya Senior APRN.DYNAMOMETER TESTER Work Phone: General Surgery Start: 09-11-2023 Telephone encounter Tonya Senior APRN.DYNAMOMETER TESTER Work Phone: General Surgery Comment on above: Results Start: 09-08-2023 End: 09-08-2023 ambulatory TONYA SENIOR Facility:[facility] Start: 09-05-2023 End: 09-05-2023 ambulatory TONYA SENIOR Facility:[facility] Start: 09-01-2023 End: 09-02-2023 ambulatory LATONIA GREENE Facility:[facility] Start: 09-01-2023 End: 09-01-2023 Admission to same day surgery center Latonia Greene PhD Work Phone: General Surgery BMI PSYL Comment on above: NO SHOW (Primary Dx) Start: 09-01-2023 End: 09-01-2023 Telemedicine consultation with patient Latonia Greene PhD Work Phone: General Surgery BMI PSYL Start: 08-20-2023 Admission to [facility] Tonya Senior APRN.DYNAMOMETER TESTER Work Phone: General Surgery Comment on above: Welcome to Bariatric Surgery Start: 08-20-2023 E-mail encounter fro m caregiver Tonya Senior APRN.DYNAMOMETER TESTER Work Phone: [facility] Start: 08-20-2023 End: 08-20-2023 ambulatory Tonya Senior FRED.DYNAMOMETER TESTER Work Phone: General Surgery Comment on above: Body mass index (BMI ) of 50-59.9 in adult (HCC) (Primary Dx); Angel's thyroiditis; High blood cholesterol Start: 08-20-2023 End: 08-20-2023 Telemedicine consultation with patient Tonya Senior FRED.DYNAMOMETER TESTER Work Phone: [facility] Start: 08-07-2023 End: 08-07-2023 ambulatory Services [facility] Work Phone: [facility] Work Phone: Start: 08-07-2023 End: 08-07-2023 Patient encounter procedure Services [facility] Work Phone: [facility] Work Phone: Start: 06-13-2023 Follow-up encounter Nicholas [facility] Start: 06-13-2023 Registered Recurring Services [facility] Work Phone: [facility] Work Phone: Start: 06-13-2023 End: 06-13-2023 ambulatory Nicholas Michaels [employer] Other Start: 06-13-2023 End: 06-13-[address] [facility] Work Phone: [facility]- Start: 01-08-2023 End: 01-08-2023 ambulatory Nicholas Michaels Other [employer] Other Start: 01-08-2023 Nutrition therapy Nicholas pérez [facility] Start: 06-18-2022 End: 06-18-2022 Emergency department patient visit Services [facility] Work Phone: [facility] Work Phone: Start: 06-03-2022 End: 06-03-[address] MELISSA CLARK Facility:[facility] Start: 12-02-2021 End: 12-02-2021 Emergency department patient visit Services [employer] [facility] Work Phone: [facility] Start: 07-08-2020 Patient encounter procedure Bayron Mccarty UP-EQPBE-Gzigin 310 [facility] Work Phone: Start: 07-05-2020 Patient encounter procedure Bayron Mccarty IB-TKFHN-Keozvw 310 IVF Work Phone: Start: 06-19-2020 Patient encounter procedure Bayron Mccarty FC-LUFTX-Piyaxl 310 IVF Work Phone: Start: 04-14-2020 Patient encounter procedure Bayron Mccarty XV-WOGTU-Wkbiks 310 IVF Work Phone: Start: 03-28-2020 Patient encounter procedure Bayron Mccarty PA-YZYGU-Zbhavt 310 IVF Work Phone: Start: 2020 Patient encounter procedure Bayron Mccarty NI-FNFHN-Eqrqzd 310 IVF Work Phone: Start: 01-24-2020 Patient encounter procedure Bayron Mccarty JX-JSXYX-Zibqgq 310 IVF Work Phone: Start: 08-01-2017 End: 08-02-2017 Ambulatory Agustin Carrasquillosriram Facility:[id number] Start: 07-14-2017 End: 07-15-2017 Ambulatory Agustin Patton Facility:CD:[id number] Procedures Date Procedure Procedure Detail Performing Clinician Start: 07-06-2020 Antibody screen Comment on above: Performed By: #### T +S #### [facility] [address] [place] [address] Start: 07-05-2020 IO Ultrasound, limit ed pelvic, follicle monitoring Bayron Mccarty Start: 06-26-2020 IO Ultrasound, limit ed pelvic, follicle monitoring Bayron Mccarty Start: 05-10-2020 Assay of progesterone J sharath Mccarty Adenoid excision Bayron wallace Cholecystectomy Bayron Chen ey SARS Antigen (LFIA) Services [employer] [facility] Work Phone: Plan of Treatment Date Care Activity Detail Author Start: 09-17-2023 End: 09-17-2023 Nutrition therapy 09/17/2023 2:30 PM EDT [facility] [address] [address] Anna Ortiz, [facility] [address] [place] [address] Red/Davis/0 Diet/[place] [facility] Comment on above: Red/Davis/0 Diet/ [place] Start: 09-12-2023 End: 09-12-2023 Admission to same day surgery center 09/12/2023 3:30 PM EDT [facility] General Surgery [address] [place] [address] Joo Bradley MD [address] [place] [address] Red/Kirk/0 Diet/[place] General Surgery Comment on above: Red/Kirk/0 Diet/Anth em Start: 09-05-2023 End: 09-05-2023 ambulatory 09/05/2023 11:45 AM EDT Results Only [facility] [address] [place] [address] [place] [address] [facility] Start: 08-20-2023 End: 11-19-2023 25-hydroxyvitamin D3 [Mass/volume] in Serum or Plasma VITAMIN D 25 HYDROXY Lab Routine Body mass index (BMI) of 50-59.9 in adult (HCC) Expected: 08/20/2023, Expires: 11/19/2023 [facility] Work Phone: Comment on above: Expected: 08/20/2023 , Expires: 11/19/2023 Start: 08-20-2023 End: 11-19-2023 CBC W Auto Differential panel - Blood COMPLETE BLOOD COUNT AND DIFFERENTIAL Lab Routine Body mass index (BMI) of 50-59.9 in adult (HCC) Expected: 08/20/2023, Expires: 11/19/2023 [facility] Work Phone: Comment on above: Expected: 08/20/2023 , Expires: 11/19/2023 Start: 08-20-2023 End: 11-19-2023 Cobalamin (Vitamin B12) [Mass/volume] in Serum or Plasma VITAMIN B12 Lab Routine Body mass index (BMI) of 50-59.9 in adult ([facility]) Expected: 08/20/2023, Expires: 11/19/2023 [facility] Work Phone: Comment on above: Expected: 08/20/2023 , Expires: 11/19/2023 Start: 08-20-2023 End: 11-19-2023 Comprehensive metabolic 2000 panel - Serum or Plasma COMPREHENSIVE METABOLIC PANEL Lab Routine High blood cholesterol Body mass index (BMI) of 50-59.9 in adult ([facility]) Expected: 08/20/2023, Expires: 11/19/2023 [facility] Work Phone: Comment on above: Expected: 08/20/2023 , Expires: 11/19/2023 Start: 08-20-2023 End: 11-19-2023 Ferritin [Mass/volume] in Serum or Plasma FERRITIN Lab Routine Body mass index (BMI) of 50-59.9 in adult ([facility]) Expected: 08/20/2023, Expires: 11/19/2023 [facility] Work Phone: Comment on above: Expected: 08/20/2023 , Expires: 11/19/2023 Start: 08-20-2023 End: 11-19-2023 Folate [Mass/volume] in Serum or Plasma FOLATE, SERUM Lab Routine Body mass index (BMI) of 50-59.9 in adult ([facility]) Expected: 08/20/2023, Expires: 11/19/2023 [facility] Work Phone: Comment on above: Expected: 08/20/2023 , Expires: 11/19/2023 Start: 08-20-2023 End: 11-19-2023 Helicobacter pylori IgG Ab [Presence] in Serum or Plasma by Immunoassay H PYLORI IGG AB Lab Routine Body mass index (BMI) of 50-59.9 in adult ([facility]) Expected: 08/20/2023, Expires: 11/19/2023 [facility] Work Phone: Comment on above: Expected: 08/20/2023 , Expires: 11/19/2023 Start: 08-20-2023 End: 11-19-2023 Hemoglobin A1c in Blood HEMOGLOBIN A1C Lab Routine Body mass index (BMI) of 50-59.9 in adult ([facility]) Expected: 08/20/2023, Expires: 11/19/2023 [facility] Work Phone: Comment on above: Expected: 08/20/2023 , Expires: 11/19/2023 Start: 08-20-2023 End: 11-19-2023 Iron and Iron binding capacity panel - Serum or Plasma IRON AND TIBC Lab Routine Body mass index (BMI) of 50-59.9 in adult ([facility]) Expected: 08/20/2023, Expires: 11/19/2023 [facility] Work Phone: Comment on above: Expected: 08/20/2023 , Expires: 11/19/2023 Start: 08-20-2023 End: 11-19-2023 Lipid 1996 panel - Serum or Plasma LIPID PANEL BASIC Lab Routine High blood cholesterol Body mass index (BMI) of 50-59.9 in adult ([facility]) Expected: 08/20/2023, Expires: 11/19/2023 [facility] Work Phone: Comment on above: Expected: 08/20/2023 , Expires: 11/19/2023 Start: 08-20-2023 End: 11-19-2023 Natriuretic peptide.B prohormone N-Terminal [Mass/volume] in Serum or Plasma NT PRO BNP Lab Routine Body mass index (BMI) of 50-59.9 in adult ([facility]) Expected: 08/20/2023, Expires: 11/19/2023 [facility] Work Phone: Comment on above: Expected: 08/20/2023 , Expires: 11/19/2023 Start: 08-20-2023 End: 11-19-2023 NICOTINE & METAB, UR NICOTINE & METAB, UR Lab Routine Body mass index (BMI) of 50-59.9 in adult ([facility]) Expected: 08/20/2023, Expires: 11/19/2023 [facility] Work Phone: Comment on above: Expected: 08/20/2023 , Expires: 11/19/2023 Start: 08-20-2023 End: 11-19-2023 Thyrotropin [Units/volume] in Serum or Plasma THYROID STIMULATING HORMONE Lab Routine Angel's thyroiditis Body mass index (BMI) of 50-59.9 in adult ([facility]) Expected: 08/20/2023, Expires: 11/19/2023 [facility] Work Phone: Comment on above: Expected: 08/20/2023 , Expires: 11/19/2023 Start: 08-20-2023 End: 11-19-2023 TOXICOLOGY SCREEN, ROUTINE URINE TOXICOLOGY SCREEN, ROUTINE URINE Lab Routine Body mass index (BMI) of 50-59.9 in adult ([facility]) Expected: 08/20/2023, Expires: 11/19/2023 [facility] Work Phone: Comment on above: Expected: 08/20/2023 , Expires: 11/19/2023 Start: 08-20-2023 End: 11-19-2023 VITAMIN B1 (THIAMINE), WHOLE BLOOD VITAMIN B1 (THIAMINE), WHOLE BLOOD Lab Routine Body mass index (BMI) of 50-59.9 in adult ([facility]) Expected: 08/20/2023, Expires: 11/19/2023 [facility] Work Phone: Comment on above: Expected: 08/20/2023 , Expires: 11/19/2023 Start: 05-12-2023 Behavioral Health Screening Behavioral Health Screening [facility] Start: 01-10-2023 Covid-19 Vaccine ( season) Covid-19 Vaccine () [facility] Start: 12-02-2021 [facility]: 12-02-2021 XR Chest Single view [facility] Work Phone: Start: 2021 Screening for malign ant neoplasm of cervix HPV Testing [facility] Start: 2012 Screening for malign ant neoplasm of cervix Pap Testing [facility] Start: 2010 Hepatitis B Vaccine (1 of 3 - 19+ 3-dose series) Hepatitis B Vaccine (1 of 3 - 19+ 3-dose series) [facility] Start: 2009 HIV screening HIV Screening [facility] Start: 2002 Urine microalbumin profile DTaP,Tdap,Td Vaccine (6 - Tdap) [facility] End: 08-19-2024 ECG COMPLETE ECG COMPLETE ECG Routine Body mass index (BMI) of 50-59.9 in adult (HCC) 1 Occurrences starting 08/20/2023 until 08/19/2024 [facility] Work Phone: Comment on above: 1 Occurrences starti ng 08/20/2023 until 08/19/2024 Patient Education [facility] Work Phone: Patient referral [facility] Work Phone: End: 09-18-2024 US Abdomen RUQ US ABD RIGHT UPPER QUADRANT Radiology Routine Body mass index (BMI) of 50-59.9 in adult (HCC) 1 Occurrences starting 08/20/2023 until 09/18/2024 [facility] Work Phone: Comment on above: 1 Occurrences starti ng 08/20/2023 until 09/18/2024 End: 09-18-2024 XR Chest PA and Lateral XR CHEST 2V FRONTAL/LAT Radiology Routine Body mass index (BMI) of 50-59.9 in adult (HCC) 1 Occurrences starting 08/20/2023 until 09/18/2024 [facility] Work Phone: Comment on above: 1 Occurrences starti ng 08/20/2023 until 09/18/2024 [id number] [facility]: Highlighted row has been ruled out! Planned Goals not documented [id number] 310 [facility] Work Phone: Payers Date Payer Category Payer Self-pay [id number] 2022 Medicaid [id number] 2022 Medicaid [id number] 1991 Unknown [id number] 3 1991 Unknown [id number] 1959 Medicaid [id number] Private Health Insurance [facility] [id number] Unknown [id number] Unknown Regular Insurance [id number] Unknown [employer] [id number] Unknown Regular Auto/Medical [id number] Unknown [id number] 1 Unknown [id number] 1 Social History Date Type Detail Facility Start: 12-02-2021 End: 10-06-2023 Tobacco smoking status VAIS Never smoked tobacco (finding) [facility] Start: 1990 Sex Assigned At Female F [facility] Start: 08-20-2023 Sex Assigned At N [facility] Other Start: 08-20-2023 Tobacco use and exposure Smokeless tobacco non-user [facility] Work Phone: Start: 08-20-2023 Alcohol intake Current drinke r of alcohol (finding) [facility] Start: 08-20-2023 History of Social function [facility] National Score (1-100), lower number is lower risk 86 [facility] Start: 08-20-2023 Alcohol Comment occ [facility] Start: 1990 Sex Assigned [facility] Start: 08-26-2023 Gender identity Identifies as female gender (finding) [facility] Start: 08-26-2023 Sexual orientation Heterosexual (fin kayleen) [facility] NEGATED: Highlighted row - - [id number] 310 [facility] Work Phone: Functional Status Date Assessment Result Facility NEGATED: Highlighted row Functional performance Functional status health issues are not documented Disease [id number] 310 [facility] Work Phone: Mental Status Date Assessment Result Facility NEGATED: Highlighted row Cognitive function [Interpretation] Cognitive status health issues are not documented Disease [id number] 310 [facility] Work Phone: Clinical Notes 01-08-2023 to 10-09-2023 Telephone Encounter - Meme Castrejon - 09/22/2023 9:36 AM EDTTelephone Encounter - Meme Castrejon - 09/22/2023 9:36 AM EDTTelephone Encounter - Meme Castrejon - 09/22/2023 9:36 AM EDTPatient Instructions Note Date & Type Note Facility 10-09-2023 Note HNO ID: [id number] Author: LATONIA GREENE, PhD Service: ? Author Type: Psychologist Type: Progress Notes Filed: 10/17/2023 11:09 Note Text: [facility] BEHAVIORAL HEALTH EVALUATION BMI Surgical Pathway Visit type: Psychology Visit DATE OF SERVICE: October 09, 2023 TIME OF SERVICE: 1:00 PM - 2:00 PM COST CENTER: [facility] CPT CODE: - [id number] Virtual Psych Diagnostic Eval BILLING CODE: ENDO PSYL LASHON Greene DATE OF FIRST SERVICE THIS CYCLE: October 09, 2023 SESSION #: 1 I have communicated my name and active licensure. The patient's identity and physical location (see below) were verified at the time of this visit. Either the patient or their legal publications sales representative has been informed of the risks and benefits of -- and alternatives to -- treatment through a remote evaluation and consents to proceed with the evaluation remotely. This evaluation is NOT intended for forensic, disability or child custody purposes. The patient e-signed a copy of the consent form via [employer] and the [facility] care insurance benefits, fees for service, emergency procedures, and the limits of confidentiality that may pertain with any given case were discussed with the patient. Upon completion of risk/benefit analysis, the patient's presenting problem and apparent condition are considered appropriate for virtual format. The patient does appear to have sufficient knowledge and skills in the use of relevant technology to benefit from virtual format. Prior to initiating the appointment, patient identity was established using name and date of . Patient was encouraged to move to a quiet place free of distractions. Plan in case of disconnection is provider to call Platform: Zoom for Healthcare Patient confirmed address and contact information in EMR in case of emergency and/or disconnection. [address] [place] [address] (Change address in [facility], was mother) Alternate [employer] Bibi Painting (Mother) [phone] (Home Phone) Patient identified the following plan to follow in case of emergency: Go to emergency room (nearest is [facility]) or call 911. IDENTIFYING INFORMATION: Ms. Jaleesa Painting is a 33 year old female. She was referred by Dr. Davis. Ms. Painting is seeking gastric sleeve surgery for class 3 obesity. COLLATERAL PARTIES PRESENT: child. MOTIVATION FOR SURGERY / UNDERSTANDING OF PROCEDURE / EXPECTATIONS: Ms. Painting notes she is motivated for surgery by wanting to improve health for children and wanting to become more active. The patient has a fair understanding of the surgery, risks, and benefits. She has talked with other people who have undergone the procedure. Specific areas of understanding that should be addressed include nutrition after surgery and behavioral changes necessary. The patient has not attended a weight loss surgery support group. The patient has no specific expectation regarding weight loss in lbs. following surgery over ?? months. Educated patient regarding expected weight loss after surgical procedure and timeline of weight loss/surgery recovery. Other expectations include improvement in health and increased activity. CAPACITY TO CONSENT: Ms. Painting evidences the following concerns regarding capacity to consent: none noted. MEDICAL PROBLEMS ACTIVE PROBLEM LIST Angel's Thyroiditis High Blood Cholesterol Shoulder Joint Pain Body Mass Index (Bmi) of 50-59.9 in Adult (Hcc) Past surgeries? Yes. 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 No MEDICATIONS Current Outpatient Medications Medication Sig cholecalciferol, Vitamin D3, (VITAMIN D3) 1,250 mcg (50,000 unit) cap capsule Take 1 capsule by mouth one time a week. No current facility-administered medications for this visit. Medications were reviewed with patient. Patient noted that she also previously as prescribed phentermine, but just ran out. Plan is to continue phentermine after filling prescription. ALLERGIES ALLERGIES Not on File EATING/WEIGHT HISTORY: Ms. Painting was overweight as a child. Her weight at age 19 was >200 lbs. The patient reports the following factors as contributing to weight gain: emotional eating. The patient reports a family history of obesity. The patient's current weight is 295 lbs. Her BMI is 47.61 kg/m2. The patient has tried weight loss strategies in the past including: phentermine, self-directed diet and exercise The patient denies a history of laxative/diuretic use. The patient denies a history of vomiting to lose weight. The patient denies a history of an eating disorder. She has not had treatment for eating disorders in the past. The most pt has l (more content not included)... [facility] 09-22-2023 Telephone encounter Note Can not schedule patient as there is already a patient scheduled for that day and time. Please advise. Thanks Meme Castrejon [facility] 09-22-2023 Telephone encounter Note ----- Message from Anna Ortiz RD sent at 09/17/2023 3:17 PM EDT ----- Regarding: virtual follow up Please schedule for a virtual up 10/16 at 1. The patient is aware, no call needed. Thank you! Anna [facility] 09-22-2023 Miscellaneous Notes Can not schedule patient as there is already a patient scheduled for that day and time. Please advise. Thanks Meme Castrejon ----- Message from Anna Ortiz RD sent at 09/17/2023 3:17 PM EDT ----- Regarding: virtual follow up Please schedule for a virtual up 10/16 at 1. The patient is aware, no call needed. Thank you! Anna Attempted to call pt, re: hypothyroid and low vitamin d levels, no answer, left vm. Tonya Senior APRN.DYNAMOMETER TESTER documented in this encounter [facility] 09-17-[address] - 09/17/2023 3:12 PM EDT 1. Read Nutritional Guidelines Section of Your Guide to Surgery by next session [email or web address] -/[email or web address]/ [email or web address] hx?la=en 2. Do not skip meals - use protein shake 1x per day to replace any skipped meals or for breakfast Use protein shake 1x per day to replace any skipped meals or for breakfast -Aim for shakes <5 grams of total sugar, 20-30 grams of protein -Start to explore the protein shakes on page 39 in your Guideline booklet for the two-week full-liquid diet. Examples: Slim Fast Advanced Nutrition [place] Breakfast Essentials Light Start Drink mixed with fat free or 1% milk - Atkins 15 gram protein Boost Glucose Control - OWYN 3. Use the Healthy Plate Method of portion control for lunch and dinner 4 oz lean meat (fish, chicken, pork tenderloin, turkey, seafood, eggs/cheese) 1/2 plate non starchy vegetables (salad, greens, cabbage, spinach, brussels sprouts, broccoli, carrots, celery, peppers, green beans, cauliflower) 1 cup starch/starchy vegetables (corn, peas, paz beans, winter squash, sweet potato, potato, rice, pasta) 4. Physical activity: aim for a goal of 150-250 minutes per week - include both cardio and strength training 5. Drink 64 ounces per day water. Fluids should follow these guidelines: No carbonation, no caffeine, no calories, no alcohol. 6. Start to explore vitamins and minerals for post=op(3 weeks after surgery). You can find these on page 49 in your guideline bookelt. Some examples of vitamins/mineral companies: - Bariatric Fusion: 4 Complete Chewable Multivitamins per day (2 in the AM, 2 in the PM) www.bariatricfusion.[employer] - [employer] Health: 1 Bariatric Multivitamin and Calcium Citrate (total of 1521-2763 mg/day) * take calcium citrate separately from Multivitamin with iron at least 2 hours apart and 4 hours apart from additional calcium www.[facility] MedicalareOZON.ru.[employer] Network - Bariatric Choice: 4 Complete Multivitamins (chewables) per day Www.bariatricchoice.com - Bariatric Advantage: 2 Multivitamins and 3 Calcium Citrate Chewables per day * take calcium citrate separately from Multivitamin with iron at least 2 hours apart and 4 hours apart from additional calcium Www.bariatricadvantage.[employer] Start practicing eating slowly, chewing each bite of food 20-30 x per bite, making meals last 20-30 minutes, separatign food and fluids by 30 minutes . Have all meals and snacks at the table with no distractions. Make placemat for reminders; work towards normal sleep/wake pattern Pre-op goal weight: 281 pounds Protein needs: 85 grams per day documented in this encounter [facility] 09-17-2023 Note HNO ID: [id number] Author: ANNA ORTIZ RD Service: ? Author Type: Registered Dietitian Type: Progress Notes Filed: 09/17/2023 15:19 Note Text: [facility] Nutrition Therapy: Virtual Consult - Initial Assessment I have communicated my name and active licensure. The patient?s identity and physical location were verified at the time of this visit. Either the patient or their legal publications sales representative has been informed of the risks and benefits of -- and alternatives to -- treatment through a remote evaluation and consents to proceed with the evaluation remotely. Nutrition Diagnosis: Overweight/obesity, related to, excess energy intake and physical inactivity, as evidenced by BMI above normative standard for age and gender. RECOMMENDED MALNUTRITION DIAGNOSIS: NO MALNUTRITION IDENTIFIED NUTRITION CARE PLAN Nutrition Intervention 09/17/2023: modify type and amount of food beverage 1. Read Nutritional Guidelines Section of Your Guide to Surgery by next session https://[email or web address].[email or web address]/ -/scassets/files/org/bariatric/ guides/bmiguideboo k-[email or web address].ashx?la=en 2. Do not skip meals - use protein shake 1x per day to replace any skipped meals or for breakfast Use protein shake 1x per day to replace any skipped meals or for breakfast -Aim for shakes <5 grams of total sugar, 20-30 grams of protein -Start to explore the protein shakes on page 39 in your Guideline booklet for the two-week full-liquid diet. Examples: ? Slim Fast Advanced Nutrition ? [place] Breakfast Essentials ?Light Start? Drink mixed with fat free or 1% milk ? - Atkins 15 gram protein ? Boost Glucose Control ? - OWYN 3. Use the Healthy Plate Method of portion control for lunch and dinner 4 oz lean meat (fish, chicken, pork tenderloin, turkey, seafood, eggs/cheese) 1/2 plate non starchy vegetables (salad, greens, cabbage, spinach, brussels sprouts, broccoli, carrots, celery, peppers, green beans, cauliflower) 1 cup starch/starchy vegetables (corn, peas, paz beans, winter squash, sweet potato, potato, rice, pasta) 4. Physical activity: aim for a goal of 150-250 minutes per week - include both cardio and strength training 5. Drink 64 ounces per day water. Fluids should follow these guidelines: No carbonation, no caffeine, no calories, no alcohol. 6. Start to explore vitamins and minerals for post=op(3 weeks after surgery). You can find these on page 49 in your guideline bookelt. Some examples of vitamins/mineral companies: - Bariatric Fusion: 4 Complete Chewable Multivitamins per day (2 in the AM, 2 in the PM) www.bariatricfusion.com - [employer]: 1 Bariatric Multivitamin and Calcium Citrate (total of 2910-8044 mg/day) * take calcium citrate separately from Multivitamin with iron at least 2 hours apart and 4 hours apart from additional calcium www.Panopto.Foodie Media Network - Bariatric Choice: 4 Complete Multivitamins (chewables) per day Www.bariatricchoice.com - Bariatric Advantage: 2 Multivitamins and 3 Calcium Citrate Chewables per day * take calcium citrate separately from Multivitamin with iron at least 2 hours apart and 4 hours apart from additional calcium Www.bariatricadDipexium Pharmaceuticalsage.Foodie Media Network Start practicing eating slowly, chewing each bite of food 20-30 x per bite, making meals last 20-30 minutes, separatign food and fluids by 30 minutes . Have all meals and snacks at the table with no distractions. Make placemat for reminders; work towards normal sleep/wake pattern Pre-op goal weight: 281 pounds Protein needs: 85 grams per day Nutrition Monitoring AND Evaluation: 1-2 lb weight loss per week, adherence to recommendatiosn Need for Follow up: 1 month Patient presents for initial nutrition Virtual Consult to discuss consultation pre op, class 3 obesity, Body mass index is 47.61 kg/m?. Significant co morbidities include elevated cholesterol and Hashiomotos, has been researching.. Patient has basic understanding of weight loss surgery, nutritional implications following surgery and necessary changes needed to be made prior to surgery. Patient has reasonable weight loss expectations, anticipating weight loss of 115 pounds following surgery, indicating desired weight of 180 pounds. Motivation for surgery includes to be healthy, be active with son and be around for son.. Previous diet attempts include AOM Phentermine, stopped soda and taking smaller portions and exercise. most weight loss. . . Greatest barrier to weight loss in the past has been poor choices, snacking Diet recall reveals skipped breakfast, eating two meals followed by excess snacking. Sleep/wake and eating patterns set later in the day. Tends towards excess snacking. Beverages include mostly water, some juice. Exercise no regular, does walk at work and occ with son, just bought some exercise equipment Weight history significant for long history of weight disorder, has had varying success with stopping soda and using Phen (more content not included)... [facility] 09-17-2023 History of Presen t illness Narrative [facility] Nutrition Therapy: Virtual Consult - Initial Assessment I have communicated my name and active licensure. The patient s identity and physical location were verified at the time of this visit. Either the patient or their legal publications sales representative has been informed of the risks and benefits of -- and alternatives to -- treatment through a remote evaluation and consents to proceed with the evaluation remotely. Nutrition Diagnosis: Overweight/obesity, related to, excess energy intake and physical inactivity, as evidenced by BMI above normative standard for age and gender. RECOMMENDED MALNUTRITION DIAGNOSIS: NO MALNUTRITION IDENTIFIED NUTRITION CARE PLAN Nutrition Intervention 09/17/2023: modify type and amount of food beverage 1. Read Nutritional Guidelines Section of Your Guide to Surgery by next session https://[email or web address] -/scassets/files/org/[email or web address]/ [email or web address] hx?la=en 2. Do not skip meals - use protein shake 1x per day to replace any skipped meals or for breakfast Use protein shake 1x per day to replace any skipped meals or for breakfast -Aim for shakes <5 grams of total sugar, 20-30 grams of protein -Start to explore the protein shakes on page 39 in your Guideline booklet for the two-week full-liquid diet. Examples: Slim Fast Advanced Nutrition [place] Breakfast Essentials Light Start Drink mixed with fat free or 1% milk - Atkins 15 gram protein Boost Glucose Control - OWYN 3. Use the Healthy Plate Method of portion control for lunch and dinner 4 oz lean meat (fish, chicken, pork tenderloin, turkey, seafood, eggs/cheese) 1/2 plate non starchy vegetables (salad, greens, cabbage, spinach, brussels sprouts, broccoli, carrots, celery, peppers, green beans, cauliflower) 1 cup starch/starchy vegetables (corn, peas, paz beans, winter squash, sweet potato, potato, rice, pasta) 4. Physical activity: aim for a goal of 150-250 minutes per week - include both cardio and strength training 5. Drink 64 ounces per day water. Fluids should follow these guidelines: No carbonation, no caffeine, no calories, no alcohol. 6. Start to explore vitamins and minerals for post=op(3 weeks after surgery). You can find these on page 49 in your guideline bookelt. Some examples of vitamins/mineral companies: - Bariatric Fusion: 4 Complete Chewable Multivitamins per day (2 in the AM, 2 in the PM) www.bariatricfusion.com - [employer] Health: 1 Bariatric Multivitamin and Calcium Citrate (total of 5355-9696 mg/day) * take calcium citrate separately from Multivitamin with iron at least 2 hours apart and 4 hours apart from additional calcium www.Panopto.[employer] Network - Bariatric Choice: 4 Complete Multivitamins (chewables) per day Www.bariatricchoTheorem.Foodie Media Network - Bariatric Advantage: 2 Multivitamins and 3 Calcium Citrate Chewables per day * take calcium citrate separately from Multivitamin with iron at least 2 hours apart and 4 hours apart from additional calcium Www.bariatricadDipexium Pharmaceuticalsage.Foodie Media Network Start practicing eating slowly, chewing each bite of food 20-30 x per bite, making meals last 20-30 minutes, separatign food and fluids by 30 minutes . Have all meals and snacks at the table with no distractions. Make placemat for reminders; work towards normal sleep/wake pattern Pre-op goal weight: 281 pounds Protein needs: 85 grams per day Nutrition Monitoring & Evaluation: 1-2 lb weight loss per week, adherence to recommendatiosn Need for Follow up: 1 month Patient presents for initial nutrition Virtual Consult to discuss consultation pre op, class 3 obesity, Body mass index is 47.61 kg/m . Significant co morbidities include elevated cholesterol and Hashiomotos, has been researching.. Patient has basic understanding of weight loss surgery, nutritional implications following surgery and necessary changes needed to be made prior to surgery. Patient has reasonable weight loss expectations, anticipating weight loss of 115 pounds following surgery, indicating desired weight of 180 pounds. Motivation for surgery includes to be healthy, be active with son and be around for son.. Previous diet attempts include AOM Phentermine, stopped soda and taking smaller portions and exercise. most weight loss. . . Greatest barrier to weight loss in the past has been poor choices, snacking Diet recall reveals skipped breakfast, eating two meals followed by excess snacking. Sleep/wake and eating patterns set later in the day. Tends towards excess snacking. Beverages include mostly water, some juice. Exercise no regular, does walk at work and occ with son, just bought some exercise equipment Weight history significant for long history of weight disorder, has had varying success with stopping soda and using Phentermine. Highest weight: 363 Lowest weight: 251 abt 3-4 years ago Weight loss expectations: personal goal 215, suggested by 180 Initial weight: 295 lbs. Mcdermitt body weight is 155 lbs. Excess body weight is 140 lbs. Goal weight pre-op is 281 lbs. Protein needs are estimated at 85gm (1.2 - protein/kg IBW) Patient meets the National Institutes of Health guidelines for weight loss surgery and has [employer] therefore is required to complete 0 months of Nutrition Intervention for clearance for surgery. Today is visit 1 of 0. however needs to demonstrate consistent effort in making dietary changes before giving nutritional clearance. It is anticipated that the patient will need at least 1-3 nutritional follow-up visits prior to clearance for surger Patient's symptoms are: Weight Concerns: failure to lose weight Diet History: wake 12-1 p.m. Breakfast - no Snack - no Lunch - no Snack - 3-4 mcdonalds, pizza or sandwich of lunch meat Dinner - 8-8:30 pizz rolls, sandwich, chips Snack - slim Jims chgips c.vookies cheese crackers Beverages - water, juice Alcohol- occ Vitamins/Supplements - no Sleep 4 a.m. Activity: Activities of Daily Living: Active 75% of the day. 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 Resting Metabolic Rate: 2064 Malnutrition Screening Significant unintentional weight loss? No Eating less than 75% of usual intake for more than 2 weeks? No Potential Signs of Inflammation: no identifiable sources Education Materials Provided: Healthy Lunch/Dinner Plate READINESS TO LEARN Cognitive ability: Alert and oriented Motivation to learn: Interested Family support: Unable to assess - Family not present Instruction provided to: Patient Patient learns best by: Individual Instruction Factors affecting learning: None Physical limitations affecting learning: None Referred by: Ryan BILLINGSLEY Billing Type: Initial Assess/15 min 2 units SIGNATURE: Anna Ortiz RD PATIENT NAME: Jaleesa Painting DATE: 09/17/2023 TIME: 2:25 PM documented in this encounter [facility] 09-11-2023 Telephone encounter Note Attempted to call pt, re: hypothyroid and low vitamin d levels, no answer, left vm. Tonya Senior APRN.DYNAMOMETER TESTER [facility] 09-01-2023 Note HNO ID: [id number] Author: LATONIA GREENE, PhD Service: ? Author Type: Psychologist Type: Progress Notes Filed: 09/01/2023 13:22 Note Text: [facility] Progress Note 09/01/2023 Billing code: Jerel Patient did not attend, cancel, or reschedule this appointment. Provider left HIPAA compliant voicemail and MyChart message with contact information to reschedule. Latonia Greene PhD Clinical Psychologist [facility] 09-01-2023 History of Presen t illness Narrative [facility] Progress Note 09/01/2023 Billing code: Jerel Patient did not attend, cancel, or reschedule this appointment. Provider left HIPAA compliant voicemail and MyChart message with contact information to reschedule. Latonia Greene PhD Clinical Psychologist documented in this encounter [facility] 08-20-2023 Note HNO ID: [id number] Author: TONYA SENIOR APRN.[facility] Service: ? Author Type: Nurse Practitioner Type: Progress Notes Filed: 08/20/2023 16:21 Note Text: have communicated my name and active licensure. The patient's identity and physical location were verified at the time of this visit. Either the patient or their legal publications sales representative has been informed of the risks and benefits of -- and alternatives to -- treatment through a remote evaluation and consents to proceed with the evaluation remotely. BMI MEDICAL CONSULT I have communicated my name and active licensure. The patient's identity and physical location were verified at the time of this visit. Either the patient or their legal publications sales representative has been informed of the risks and benefits of -- and alternatives to -- treatment through a remote evaluation and consents to proceed with the evaluation remotely. History of Present Illness 33 year old year old female presents on August 20, 2023 for medical evaluation prior to anticipated surgical/medical treatment of obesity. The patient is interested in TBD with Dr. Davis. Last 2 Encounter Wt Readings: Date: Wt: 08/20/2023 133.8 kg (295 lb) Body mass index is 47.61 kg/m?. Nutritional History Age of onset: childhood Rate of weight gain: gradual Inciting factors: post weight retention Minimum weight: 255 lbs Maximum weight: 360 lbs How long at current weight: months Eating disorders? (bulimia, anorexia, binge eating?) no Family history of obesity? 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 No -Climb 2 flights of stairs without symptoms? Yes -Heavy housework without symptoms? Yes Previous stress testing/cardiac testing and why? No Morbid obesity, obesity mortality risk score: BMI>50 Sleep apnea screen: S-snore? Yes T-feel tired, fatigued, daytime sleepiness? Yes O-observed patient stop breathing during sleep? No P-does patient have, or being treated for high blood pressure? No B-is BMI >35? Yes A-Age >50 No N-Neck circumference >15.75 inches? No G-Male gender? No Computed NAFLD Fibrosis Score unavailable. One or more values for this score either were not found within the given timeframe or did not fit some other criterion. 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 ALLERGIES Not on File PAST SURGICAL HISTORY Procedure Laterality Date ADENOIDECTOMY PRIMARY PAST SURGICAL HISTORY OF Left fallopian tube removal REMOVAL GALLBLADDER Social History Tobacco Use Smoking status: Never Smokeless tobacco: Never Substance Use Topics Alcohol use: Yes Comment: occ Drug use: Not Currently No family history on file. REVIEW OF SYSTEMS: Skin: eczema Respiratory: No history of cough, hemoptysis, asthma, recent chest infection, wheezing Cardiovascular: No history of chest pain,palpitation,orthopnea,cyno sis,pedel edema Gastrointestinal: No blood in stool, pain with BM, tarry stool, persistent diarrhea or constipation Genitourinary: No burning with urination, blood in urine or incontinence. No change in vaginal discharge, burning, dryness or itching. Hematology/Lymphology Negative for prolonged bleeding, bruising easily or swollen nodes. Musculoskeletal: negative Psychiatric: negative Endocrine: thyroid disorder - no meds currently Neuro: No history of headaches, syncope, paralysis, seizures or tremors OBJECTIVE: Ht 167.6 cm (5' 6 ) Wt 133.8 kg (295 lb) BMI 47.61 kg/m? Body mass index is 47.61 kg/m?. Video Visit General appearance: Well appearing, alert, in no acute distress ASSESSMENT: Reviewed principles of energy metabolism, caloric intake and expenditure, and rationale for treatment program. Also reinforced need for reduced calorie, low fat diet and increased physical activity. Patient is a good candidate for bariatric surgery. Patient education provided regarding procedures, behavior modification, risk and benefits of surgery, current choice for TBD. ASSESSMENT/PLAN: 1. Body mass index (BMI) of 50-59.9 in adult (HCC) - ICD9: V85.43, ICD10: Z68.43 (primary diagnosis) Weight decreasing - Behavioral intervention, - Medical nutrition therapy with dietitian, and - Psychology - COMPLETE BLOOD COUNT AND DIFFERENTIAL - COMPREHENSIVE METABOLIC PANEL - FERRITIN - FOLATE, SERUM - HEMOGLOBIN A1C - (more content not included)... [facility] 08-20-2023 History of Presen t illness Narrative Images from the original note were not included. have communicated my name and active licensure. The patient's identity and physical location were verified at the time of this visit. Either the patient or their legal publications sales representative has been informed of the risks and benefits of -- and alternatives to -- treatment through a remote evaluation and consents to proceed with the evaluation remotely. BMI MEDICAL CONSULT I have communicated my name and active licensure. The patient's identity and physical location were verified at the time of this visit. Either the patient or their legal publications sales representative has been informed of the risks and benefits of -- and alternatives to -- treatment through a remote evaluation and consents to proceed with the evaluation remotely. History of Present Illness 33 year old year old female presents on August 20, 2023 for medical evaluation prior to anticipated surgical/medical treatment of obesity. The patient is interested in TBD with Dr. Davis. Last 2 Encounter Wt Readings: Date: Wt: 08/20/2023 133.8 kg (295 lb) Body mass index is 47.61 kg/m . Nutritional History Age of onset: childhood Rate of weight gain: gradual Inciting factors: post weight retention Minimum weight: 255 lbs Maximum weight: 360 lbs How long at current weight: months Eating disorders? (bulimia, anorexia, binge eating?) no Family history of obesity? 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 No -Climb 2 flights of stairs without symptoms? Yes -Heavy housework without symptoms? Yes Previous stress testing/cardiac testing and why? No Morbid obesity, obesity mortality risk score: BMI>50 Sleep apnea screen: S-snore? Yes T-feel tired, fatigued, daytime sleepiness? Yes O-observed patient stop breathing during sleep? No P-does patient have, or being treated for high blood pressure? No B-is BMI >35? Yes A-Age >50 No N-Neck circumference >15.75 inches? No G-Male gender? No Computed NAFLD Fibrosis Score unavailable. One or more values for this score either were not found within the given timeframe or did not fit some other criterion. 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 ALLERGIES Not on File PAST SURGICAL HISTORY Procedure Laterality Date ADENOIDECTOMY PRIMARY <AGE 13 PAST SURGICAL HISTORY OF Left fallopian tube removal REMOVAL GALLBLADDER Social History Tobacco Use Smoking status: Never Smokeless tobacco: Never Substance Use Topics Alcohol use: Yes Comment: occ Drug use: Not Currently No family history on file. REVIEW OF SYSTEMS: Skin: eczema Respiratory: No history of cough, hemoptysis, asthma, recent chest infection, wheezing Cardiovascular: No history of chest pain,palpitation,orthopnea,cyno sis,pedel edema Gastrointestinal: No blood in stool, pain with BM, tarry stool, persistent diarrhea or constipation Genitourinary: No burning with urination, blood in urine or incontinence. No change in vaginal discharge, burning, dryness or itching. Hematology/Lymphology Negative for prolonged bleeding, bruising easily or swollen nodes. Musculoskeletal: negative Psychiatric: negative Endocrine: thyroid disorder - no meds currently Neuro: No history of headaches, syncope, paralysis, seizures or tremors OBJECTIVE: Ht 167.6 cm (5' 6 ) Wt 133.8 kg (295 lb) BMI 47.61 kg/m Body mass index is 47.61 kg/m . Video Visit General appearance: Well appearing, alert, in no acute distress ASSESSMENT: Reviewed principles of energy metabolism, caloric intake and expenditure, and rationale for treatment program. Also reinforced need for reduced calorie, low fat diet and increased physical activity. Patient is a good candidate for bariatric surgery. Patient education provided regarding procedures, behavior modification, risk and benefits of surgery, current choice for TBD. ASSESSMENT/PLAN: 1. Body mass index (BMI) of 50-59.9 in adult (HCC) - ICD9: V85.43, ICD10: Z68.43 (primary diagnosis) Weight decreasing - Behavioral intervention, - Medical nutrition therapy with dietitian, and - Psychology - COMPLETE BLOOD COUNT AND DIFFERENTIAL - COMPREHENSIVE METABOLIC PANEL - FERRITIN - FOLATE, SERUM - HEMOGLOBIN A1C - IRON AND TIBC - LIPID PANEL BASIC - NT PRO BNP - THYROID STIMULATING HORMONE - VITAMIN B1 (THIAMINE), WHOLE BLOOD - VITAMIN B12 - VITAMIN D 25 HYDROXY - NICOTINE & METAB, UR - H PYLORI IGG AB - TOXICOLOGY SCREEN, ROUTINE URINE - ECG COMPLETE - XR CHEST 2V FRONTAL/LAT - US ABD RIGHT UPPER QUADRANT 2. 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 High blood cholesterol - ICD9: 272.0, ICD10: E78.00 No meds - COMPREHENSIVE METABOLIC PANEL - LIPID PANEL BASIC Tonya Senior APRN.DYNAMOMETER TESTER -- Recommend that she should not become for 18-24 months after surgery due to increased risks of micronutrient deficiency. I counseled her on the perioperative use of estrogen therapy, instructing her not to take oral estrogen (eg OCPs) one month before and one month after surgery due to increased VTE risk. We reviewed alternate forms of contraception and encouraged the patient to speak with her physician/provider to formulate a perioperative plan. If she is considering a Carie-en Y gastric bypass, I counseled her that oral methods of control may not be as effective after surgery and that they should consider alternate contraception to reduce the risk of . Currently abstinent. I spent a total of 45 minutes on the date of the service which included preparing to see the patient, obtaining and/or reviewing separately obtained history, performing a medically appropriate examination, and counseling and educating the patient/family/caregiver. BMI Surgical Pathway Visit type: Obesity Medicine Visit documented in this encounter [facility] 06-13-2023 Evaluation note Encounter Date Diagnosis Assessment Notes Jun, Severe obesity (BMI >= 40) (ICD-10 - E66.01) Consultation date 01-08-2023, weight (pounds): 330.2 Follow-up date 02-05-2023, weight (pounds): 326.6 Follow-up date 03-05-2023, weight (pounds): Patient no-show Follow-up date 06-13-2023, weight (pounds): 303 -Discussed treatment options including lifestyle interventions, such as calorie reduction and physical activity, and use of medications as an adjunct to amplify adherence to healthy behavior change-Discussed benefits, risks and side effects of medication. After informed discussion, patient would like to proceedOrders:-P atient did not reschedule appointment. She is unsure why. She has maintained beneficial weight loss -Retrial phentermine for 8 weeks -Handed patient self referral to [facility] bariatric surgery program -Ntkcz-ra-rkwe A1c December 2022 5.4%-Follow up in clinic in 8 weeksThis note was created with voice recognition software. 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 Jun, Dietary surveillance and counseling (ICD-10 - Z71.3) Discussed in detail high-protein, high-fiber, low-fat nutrition plan favoring calorie deficit and lean tissue mass preservation. Jun, Exercise counseling (ICD-10 - Z71.89) Absolute HGS at time of consultation (pounds): 83.2 Absolute HGS at time of follow-up (pounds): 74.8 Discussed in detail exercise interventions to promote lean tissue mass preservation during calorie restriction. Jun, Dyslipidemia (ICD-10 - E78.5) Lipid panel June 2021 revealing LDL cholesterol 117Continue with weight centric approach Jun, Other Patient's vital signs including BMI, blood pressure and heart rate are recorded in objective portion of note. No suspicion for drug or alcohol abuse at this time. OARRS accessed and is appropriate. Plan to utilize phentermine as adjunct to nutrition and exercise behavior change. Patient will inform clinic if side effects are experienced. Patient's response to medication will be assessed at least every 3 months for a goal of 5% weight reduction. [facility] 08-30-2023 Evaluation note* Encounter Date Diagnosis Assessment Notes Treatment Notes Treatment Clinical Notes Dec, Severe obesity (BMI >= 40) (ICD-10 - E66.01) Consultation date 01-08-2023, weight (pounds): 330.2Plan is to take a weight centric approach to patient care in the treatment of excess adiposity and patient's weight related comorbidities.-Discuss ed the impact of excess adiposity on overall health and increased risk of associated health conditions-Discussed treatment options including lifestyle interventions, such as calorie reduction and physical activity, and use of medications as an adjunct to amplify adherence to healthy behavior change-Discussed benefits, risks and side effects of medication. After informed discussion, patient would like to proceedOrders:-Initiat e phentermine 37.5 mg once daily in the a.m. -Patient was on in the past and denies side kziqdcb-Jrbbb-zf-care A1c today 5.4%-Follow up in clinic in 4 weeksThis note was created with voice recognition software. 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 Dec, Dietary surveillance and counseling (ICD-10 - Z71.3) Discussed in detail high-protein, high-fiber, low-fat nutrition plan favoring calorie deficit and lean tissue mass preservation.-Lean protein sources at each meal supplemented with nutrient rich, low calorie density carbohydrates-Focus on consuming calories earlier in the day versus later; breakfast and lunch should be largest meals-Evening meal should be high in protein and low in carbohydrate to maximize lipolysis overnight-Aim for a minimum of 30 g of protein per meal with breakfast, lunch and dinner with total daily intake reaching at least 100 g-If needed, supplement with whey protein powder or premade protein drink low in carbohydrate and low in fat-If hungry between meals, consider protein snack low in carbohydrate and low in fat Actionable goals: Consider premade protein drink for breakfast, by plain Georgian yogurt and flavor yourself with cinnamon or protein powder, limit carbohydrates in the evening time Dec, Exercise counseling (ICD-10 - Z71.89) Absolute HGS at time of consultation (pounds): 83.2Discussed in detail exercise interventions to promote lean tissue mass preservation during calorie restriction.-In addition to regularly scheduled endurance and resistance exercise, perform bouts of resistance exercise prior to meals using body weight, resistance bands or dumbbells/weights-Foll owing meals, consider aerobic exercise, such as brisk walking, to improve blood sugars and to mitigate hyperinsulinemia Dec, Dyslipidemia (ICD-10 - E78.5) Dec, Other 45 minutes was spent reviewing patient specific healthcare information, interviewing, counseling, and communicating with the patient, and documenting clinical information. [employer] Other Chibt complaint+Reason for visit Narrative* Chief Complaint Obesity Reason for Visit Exercise counseling Severe obesity (BMI >= 40) [facility] Work Phone: Chitr complaint+Reason for visit Narrative* Chief Complaint Pos test, Cramping, Vaginal bleeding Reason for Visit Exercise counseling Severe obesity (BMI >= 40) [facility] Work Phone: Evaluation noteNo assessment information available [facility] Work Phone: Evaluation note* Diagnosis Onset Date Resolution Status Exercise counseling acute Severe obesity (BMI >= 40) delilah kevin [facility] Work Phone: Evaluation note* Diagnosis Body mass index (BMI) of 50-59.9 in adult (HCC)- Primary Body Mass Index 50.0-59.9, adult Angel's thyroiditis Chronic lymphocytic thyroiditis High blood cholesterol Pure [facility]cholesterolemia [facility] NO SHOW- Primary [facility] Diagnosis Obesity, Class III, BMI 40-49.9 (morbid obesity) ([facility])- Primary Morbid obesity Dietary counseling Dietary surveillance and counseling [facility] Diagnosis Vitamin D deficiency- Primary Unspecified vitamin D deficiency documented in this encounter [facility] general Narrative - Reported* Type Description Date Surgical History adnoidectomy Surgical History gall bladder Surgical History L Fallopian tube removed Hospitalization History See Above [facility] Other Hospital Discharge instructions Additional Instructions You may take kdji-ubf-mmotasl cough and cold medication as needed You may take lrqc-wrb-llikhqu Tylenol and/or ibuprofen as needed Increase oral fluids Follow-up with family doctor as needed Return to the ER for any acute difficulty breathing high fever vomiting or any other [facility] Work Phone: Hospital Discharge instructions Additional Instructions Nothing into vagina until seen by DURABILITY ENGINEER May take Tylenol for discomfort Increase oral fluids Follow-up with DURABILITY ENGINEER Return to the ER for heavy bleeding greater than a pad an hour feeling dizzy lightheaded or any other [facility] Work Phone: Reason for referral (narrative)* Diagnostic Procedure Only (Routine) - Pending Review Specialty Diagnoses / Procedures Referred By Contac t Referred To Contact [facility] Diagnoses Body mass index (BMI) of 50-59.9 in adult (HCC) Procedures US ABD RIGHT UPPER QUADRANT US ABDOMINAL REAL TIME W/IMAGE LIMITED Tonya Senior APRN.CNP [id number] [place] [address] Referral ID Status Reason Start Date Expiration Date Visits Requested Visits Authorized [id number] Pending Review Auto-Generat ed Referral 08/20/2023 09/18/2024 1 1 * Outpatient Procedure (Routine) - Pending Review Specialty Diagnoses / Procedures Referred By Contac t Referred To Contact [facility] Diagnoses Body mass index (BMI) of 50-59.9 in adult (HCC) Procedures ECG COMPLETE ECG ROUTINE ECG W/LEAST 12 LDS W/I&R Tonya Senior APRN.MERON [address] [place] [address] [facility] [address] [place] [id number] Referral ID Status Reason Start Date Expiration Date Visits Requested Visits Authorized [id number] Pending Review Auto-Generat ed Referral 08/20/2023 08/19/2024 1 1 [facility] Summary Purpose Family History No Family History Records Found Mother Name Dates Details No pertinent family history( V49.89, Z78.9) Status:Active Father Name Dates Details No pertinent family history( V49.89, Z78.9) Status:Active Mother Name Dates Details No pertinent family history( V49.89, Z78.9) Status:Active Father Name Dates Details No pertinent family history( V49.89, Z78.9) Status:Active Mother Name Dates Details No pertinent family history( V49.89, Z78.9) Status:Active Father Name Dates Details No pertinent family history( V49.89, Z78.9) Status:Active Relationship Condition Age at Onset Recorded Date/T evangelista grandparent Malignant neoplasm of breast Unknown Not Specified Hypertension Unknown father Type 2 diabetes mellitus Unknown Relationship Condition Age at Onset Recorded Date/T evangelista grandparent Malignant neoplasm of breast Unknown Not Specified Hypertension Unknown Obesity Unknown father Type 2 diabetes mellitus Unknown sister Obesity Unknown Advance Directives No Advanced Directives Records Found Advance Directive Response Recorded Date/ Time Advance Directives No April 2:37pm Advance Directive Response Recorded Date/ Time Advance Directives No April 1:37pm Chief Complaint and Reason for Visit Chief Complaint chest pain, cough Chief Complaint cough,chest pain Additional Source Comments INFORMATION SOURCE (unrecogn ized section and content) DATE CREATED AUTHOR 10/31/2017 [facility] DATE CREATED AUTHOR AUTHOR'S ORGANIZ ATION 04/23/2020 [facility] DATE CREATED AUTHOR AUTHOR'S ORGANIZ ATION 08/08/2020 [facility] DATE CREATED AUTHOR AUTHOR'S ORGANIZ ATION 08/22/2020 [facility] DATE CREATED AUTHOR AUTHOR'S ORGANIZ ATION 06/11/2022 [facility] DATE CREATED AUTHOR AUTHOR'S ORGANIZ ATION 09/06/2023 [facility] DATE CREATED AUTHOR AUTHOR'S ORGANIZ ATION 10/03/2023 [facility] DATE CREATED AUTHOR AUTHOR'S ORGANIZ ATION 10/14/2023 [facility] DATE CREATED AUTHOR AUTHOR'S ORGANIZ ATION 10/18/2023 [facility] DATE CREATED AUTHOR AUTHOR'S ORGANIZ ATION 11/01/2023 [facility] EPIC Care Teams (unrecognized sec tion and content) Team Status: Inactive Member Role Status Dates Services Family [facility] Primary Care Provider Active Ck To PA-C Emergency Provider Active Team Status: Active Member Role Status Dates Services Family [facility] Primary Care Provider Active Team Status: Inactive Member Role Status Dates Services Family [facility] Primary Care Provider Active Marychuy Kyle [facility] Emergency Provider Active Team Status: Inactive Member Role Status Dates Nicholas Michaels DO Attending Provider Active St art: June 13, 2023 End: June 13, 2023 Team Status: Active Member Role Status Dates Services [facility] Primary Care Provider Active Start: June 13, 2023 Nicholas Michaels DO Attending Provider Active St art: June 13, 2023 Team Status: Inactive Member Role Status Dates Services [facility] Primary Care Provider Active Start: August 07, 2023 End: August 07, 2023 Nicholas Michaels DO Attending Provider Active St art: August 07, 2023 End: August 07, 2023 Team Status: Inactive Member Role Status Dates Services [facility] Primary Care Provider Active Start: October 06, 2023 End: October 06, 2023 Marychuy Kyle [facility] Emergency Provider Active Start: October 06, 2023 End: October 06, 2023 Goals (unrecognized section and content) Goals may be documented in a n alternate sectionGoals may be documented in an alternate sectionNo InformationNo InformationGoals may be documented in an alternate sectionGoals may be documented in an alternate sectionGoals may be documented in an alternate section REASON FOR VISIT (unrecogniz ed section and content) Reason Comments New Patient Reason Comments No Show Reason Comments Patient Education Assessment 91 Reason Comments Results Source Comments (unrecognize d section and content) In the event this informatio n is protected by the Federal Confidentiality of Alcohol and Drug Abuse Patient Records regulations: The Federal rules restrict any use of the information to criminally investigate or prosecute any alcohol or drug abuse patient.[facility] the event this information is protected by the Federal Confidentiality of Alcohol and Drug Abuse Patient Records regulations: The Federal rules restrict any use of the information to criminally investigate or prosecute any alcohol or drug abuse patient.[facility] the event this information is protected by the Federal Confidentiality of Alcohol and Drug Abuse Patient Records regulations: The Federal rules restrict any use of the information to criminally investigate or prosecute any alcohol or drug abuse patient.[facility] the event this information is protected by the Federal Confidentiality of Alcohol and Drug Abuse Patient Records regulations: The Federal rules restrict any use of the information to criminally investigate or prosecute any alcohol or drug abuse patient.[facility] the event this information is protected by the Federal Confidentiality of Alcohol and Drug Abuse Patient Records regulations: The Federal rules restrict any use of the information to criminally investigate or prosecute any alcohol or drug abuse patient.[facility] Center[facility] the event this information is protected by the Federal Confidentiality of Alcohol and Drug Abuse Patient Records regulations: The Federal rules restrict any use of the information to criminally investigate or prosecute any alcohol or drug abuse patient.[facility] FOR RECORDS PERTAINING TO PATIENTS WHO ARE OR HAVE BEEN ENROLLED IN A CHEMICAL DEPENDENCY/SUBSTANCEABUSE PROGRAM, SOME INFORMATION MAY BE OMITTED. This clinical summary was aggregated from multiple sources. Caution should be exercised in using it in the provision of clinical care. This summary normalizes information from multiple sources, and as a consequence, information in this document may materially change the coding, format and clinical context of patient data. In addition, data may be omitted in some cases. CLINICAL DECISIONS SHOULD BE BASED ON THE PRIMARY CLINICAL RECORDS. [employer] [facility] provides no warranty or guarantee of the accuracy or completeness of information in this document.
[2023-11-12 13:53] LABS: Basophils Percent Auto 0.3 % (0.2-2.0); Eosinophils Absolute Auto 0.1 10^3/uL (0.0-0.7); Eosinophils Percent Auto 1.4 % (0.9-7.0); Hematocrit 34.7 % (36.0-48.0); Hemoglobin 11.8 g/dL (12.0-16.0); Immature Granulocytes Abs Auto 0.03 10^3/uL (0.00-0.03); Immature Granulocytes Pct Auto 0.5 % (0.0-0.5); Lymphocytes Absolute Auto 2.6 10^3/uL (1.2-3.8); Lymphocytes Percent Auto 40.7 % (20.5-60.0); Mean Corpuscular Hemoglobin 30.2 pg (26.7-34.0); Mean Corpuscular Volume 88.7 fL (81.0-99.0); Mean Platelet Volume 9.1 fL (9.5-13.5); Monocytes Absolute Auto 0.3 10^3/uL (0.3-0.8); Monocytes Percent Auto 5.3 % (1.7-12.0); Neutrophils Absolute Auto 3.2 10^3/uL (1.4-6.5); Neutrophils Percent Auto 51.8 % (43.0-75.0); Platelet Count 350 10^3/uL (150-450); Red Blood Count 3.91 10^6/uL (4.20-5.40); Red Cell Distribution Width 12.3 % (11.0-15.0); White Blood Count 6.3 10^3/uL (4.0-11.0)
[2023-11-12 14:45] LABS: Estimated Average Glucose 108 mg/dL; Glycohemoglobin A1C 5.4 % (4.5-6.2)
[2023-11-12 15:05] LABS: Thyroid Stimulating Hormone 5.339 uIU/mL (0.358-3.740)
[2023-11-13 04:07] LABS: Rubella Antibodies, IgG 1.97 index (Immune >0.99)
[2023-11-13 07:08] LABS: HBsAg Screen Negative (Negative); HCV Ab Non Reactive (Non Reactive); HIV Ab/p24 Ag Screen Non Reactive (Non Reactive)
[2023-11-13 12:18] LABS: Rapid Plasma Reagin, Quant Non Reactive titer (NonRea<1:1)
== END 2023-11-12 13:19 | disposition home or self-care (01) ==
LOC: LAB 13:20
PROVIDERS: Visit Provider Obstetrics & Gynecology
DX: Z36.0 Encounter for antenatal screening for chromosomal anomalies (principal); N92.6 Irregular menstruation, unspecified
CPT/HCPCS: 36415; 83036; 84443; 85025; 86592; 86762; 86803; 86850; 86900; 86901; 87086; 87340; 87389

== ENCOUNTER 2023-12-23 18:33 | Outpatient (REF) | payer MEDICAID, SELFPAY ==
--- OUTSIDE RECORDS SUMMARY | 2023-12-23 18:40 | XMS_ITS | CCD ---
Author Organization [facility] Care Team Providers Care Yarn Hauler Name Role Phone Agustin Patton Unavailable Unavailable Agustin Patton Unavailable Unavailable Bayron Mccarty Unavailable Unavailable Unavailable Unavailable Unavailable Unavailable Unavailable Unavailable [facility] Primary Care Provider DEMETRIUS To Emergency Provider DR MELISSA CLARK Attending Unavailable DR MELISSA CLARK Consulting Unavailable DR MELISSA CLARK Admitting Unavailable [facility] Primary Care Provider [phone] Anabella [facility] Marychuy E Emergency Provider Nicholas Michaels Unavailable [facility] Primary Care Provider [phone] DO Nicholas Michaels Attending Provider [phone] Unavailable Primary Care Provider Unavailabl e Unavailable Primary Care Provider Unavailabl e LATONIA GREENE Attending Unavailable TONYA SENIOR Attending Unavailable [facility] Primary Care Provider [phone] Anabella [facility] Marychuy E Emergency Provider Bullsar[place]ore Marychuy Amada Attending Unavailable Bullimore, Marychuy E Admitting Unavailable [facility] Primary Care Unavaila Nicholas Willams Admitting Unavailable [facility] Primary Care Unavaila Nicholas Willams Attending Unavailable LATONIA GREENE Referring Unavailable LATONIA GREENE Attending Unavailable ANNA ORTIZ Attending Unavailable TONYA SENIOR Referring Unavailable TONYA SENIOR Referring Unavailable MELISSA CLARK Attending Unavailable Medications Current Medications Medication Drug Class(es) [...] Refills: 0 DO Start : 13-Mar-2020 Active [place] (No Known Home Meds) (3 sources) Start: 10-06-2023 [place] (No Kn own Home Meds) Active October 06, 2023 12:00am Start: 06-18-2022 [place] (No Kn own Home Meds) Active June [...] oral solution (5 sources) alpha-Adrenergic Agonist, Uncompetitive I-zfxuvo-L-asparta te Receptor Antagonist, Sigma-1 Agonist Start: 2 [...] by your physician. Quantity: 5 Refills: 2 Bibiana ALFONSO, Bayron Start : 19-Jun-2020 Active levothyroxine sodium 0.05 [...] 26, 2019 12:58pm July 28, 2020 7:27pm Xeyqyokb-Qfv-Cw-Fa () 1 mg Tablet (5 sources) Start: 12-31-2020 End: 07-04-2021 take 1 tablet by mouth once Mzwiknfb-Bxt-Qm-Fa () 1 mg Tablet Discontinued TAB PO December 30, 2020 11:00pm July 04, 2021 9:48am Start: 12-31-2020 End: 07-04-2021 take 1 tablet by mouth once Egdvxwaa-Sea-Gj-F a () 1 mg Tablet Discontinued TAB PO December 31, 2020 12:00am July 04, 2021 10:48am progesterone 100 mg oral capsule (7 sources) Progesterone Start: 07-28-2020 End: 12-31-2020 Progesterone Micronized Discontinued 100 MG VAGINAL Twice daily July 28, 2020 12:00am December 31, 2020 9:55am Start: 06-19-2020 take 1 capsule by mo [facility] twice daily Progesterone Micronized 100 MG Oral Capsule TAKE 1 CAPSULE Twice daily insert capsules vaginally Quantity: 30 Refills: 3 Bayron Mccarty MD Start : 19-Jun-2020 Active sennosides, half-way 8.6 mg oral tablet (1 source) take 4 tablets by [facility] every twenty-four hours Senna 8.6 MG [...] ALT [Catalytic activity/Vol] 13 U/L Normal 7-52 [facility] Comment on above: Performed By: #### C BC, CMP, HCGQNT #### [address] Albumin [Mass/volume] in Ser um or Plasma by Bromocresol green (BCG) dye binding methoOrdered By: Marychuy Kyle on 10-06-2023 Albumin BCG dye [Mass/Vol] 3.8 g/dL 3.5-5.7 [facility] Alkaline phosphatase [Enzyma tic activity/volume] in Serum or PlasmaOrdered By: Marychuy Kyle on 10-06-2023 ALP [Catalytic activity/Vol] 61 U/L Normal 34-104 [facility] Comment on above: Performed By: #### C BC, CMP, HCGQNT #### [address] Aspartate aminotransferase [ Enzymatic activity/volume] in Serum or PlasmaOrdered By: Marychuy Bullimore on 10-06-2023 AST [Catalytic activity/Vol] 13 U/L Normal 13-39 [facility] Comment on above: Performed By: #### C BC, CMP, HCGQNT #### [address] Automated basophil %Ordered By: Marychuy Bullimore on 10-06-2023 Basophils/100 WBC (Bld) 0.6 % Normal . [facility] Comment on above: Performed By: #### C BC, CMP, HCGQNT #### [address] Automated basophil countOrde red By: Marychuy Bullimore on 10-06-2023 Basophils (Bld) [#/Vol] 0.0 10*3/uL Normal 0.0-0.2 [facility] Comment on above: Result Comment: PERF ORMED BY: [place] [address] PATHOLOGIST [employer] LION STANLEY M.D. Performed By: #### C BC, CMP, HCGQNT #### [address] Automated blood monocyte cou ntOrdered By: Marychuy Bullimore on 10-06-2023 Monocytes (Bld) [#/Vol] 0.5 10*3/uL Normal 0.0-0.8 [facility] Comment on above: Performed By: #### C BC, CMP, HCGQNT #### [address] Automated eosinophil %Ordere d By: Marychuy Bullimore on 10-06-2023 Eosinophils/100 WBC (Bld) 0.7 % Normal . [facility] Comment on above: Performed By: #### C BC, CMP, HCGQNT #### [address] [address] [place] Automated eosinophil countOr dered By: Marychuy Anabella on 10-06-2023 Eosinophils (Bld) [#/Vol] 0.1 10*3/uL Normal 0.0-0.45 [facility] Comment on above: Performed By: #### C BC, CMP, HCGQNT #### [facility] [address] [place] [address] Automated epithelial cells c ount in urine sediment (number/area)Ordered By: Marychuy Jeronimoimore on 10-06-2023 Epithelial cells Auto (Urine sed) [#/Area] 3-4 [HPF] 0-2 [facility] Automated monocyte %Ordered By: Marychuy Wangore on 10-06-2023 Monocytes/100 WBC (Bld) 6.7 % Normal . [facility] Comment on above: Performed By: #### C BC, CMP, HCGQNT #### [facility] [address] [place] [address] Automated neutrophil %Ordere d By: Marychuy Wangore on 10-06-2023 Neutrophils/100 WBC (Bld) 54.4 % Normal . [facility] Comment on above: Performed By: #### C BC, CMP, HCGQNT #### [facility] [address] [place] [address] Bacteria [Presence] in Urine by AutomatedOrdered By: Marychuy Wangore on 10-06-2023 Bacteria Auto Ql (U) None seen [HPF] None Seen [facility] Bilirubin Test strip Ql (U)O rdered By: Marychuy Bullimore on 10-06-2023 Bilirubin Ql (U) Negative Negative [facility] Bilirubin.total [Mass/volume ] in Serum or PlasmaOrdered By: Marychuy Phaniimore on 10-06-2023 Bilirubin [Mass/Vol] 0.2 mg/dL Low 0.3-1.0 [facility] Comment on above: Performed By: #### C BC, CMP, HCGQNT #### [facility] [address] [place] [address] Calcium [Mass/volume] in Ser um or PlasmaOrdered By: Marychuy Kyle on 10-06-2023 Calcium [Mass/Vol] 9.4 mg/dL Normal 8.6-10.3 [facility] Comment on above: Performed By: #### C BC, CMP, HCGQNT #### [facility] [address] Carbon dioxide, total [Moles /volume] in Serum or PlasmaOrdered By: Marychuy Wangore on 10-06-2023 CO2 [Moles/Vol] 25.5 mmol/L Normal 21.0-31.0 [facility] Comment on above: Performed By: #### C BC, CMP, HCGQNT #### [facility] [address] Chloride [Moles/volume] in S sondra or PlasmaOrdered By: Marychuy Wangore on 10-06-2023 Chloride [Moles/Vol] 105 mmol/L Normal 98-107 [facility] Comment on above: Performed By: #### C BC, CMP, HCGQNT #### [address] Choriogonadotropin.beta subu nit [Units/volume] in Serum or PlasmaOrdered By: Marychuy Kyle on 10-06-2023 HCG.beta subunit Qn 2799.00 m[IU]/mL [facility] Comment on above: Approximate Approxim ate hCG Gestational Age Range (mIU/ml) (weeks)0.2-1 5-50 1-2 50-500 2-3 100-5,000 3-4 500-10,000 4-5 1,000-50,000 5-6 10,000-100,000 6-8 15,000-200,000 8-12 10,000-100,000 Color of Urine by AutoOrdere d By: Marychuy Kyle on 10-06-2023 Color (U) Yellow Normal Yellow [facility] Comment on above: Order Comment: NEED MORE SPECIMEN Name Collection Type:: Clean-Voided Midstream Performed By: #### A DDONUAPLUS #### [address] Complete Blood Count Auto Di ffon 10-06-2023 Mean Corpuscular HGB Conc 34.4 g/dL Normal 32.0-35.0 [facility] Comment on above: Performed By: #### C BC, CMP, HCGQNT #### [address] Monocytes/100 WBC (Bld) 17.37 % Normal 0.00-20.00 [facility] Comment on above: Performed By: #### C BC, CMP, HCGQNT #### [address] NRBC% 0.2 /100{WBC} Normal 0-0.5 [facility] Comment on above: Performed By: #### C BC, CMP, HCGQNT #### [address] Comprehensive Metabolic Pane panchito 10-06-2023 Albumin [Mass/Vol] 3.8 g/dL Normal 3.5-5.7 [facility] Comment on above: Performed By: #### C BC, CMP, HCGQNT #### [place] [address] [place] Creatinine Clr Calc Pharmacy 180.48 Normal [facility] Comment on above: Performed By: #### C BC, CMP, HCGQNT #### [place] [address] [place] GFR/1.73 sq M.predicted MDRD (S/P/Bld) [Vol rate/Area] mL/min/{1.73_m2} Normal [facility] Comment on above: Performed By: #### C BC, CMP, HCGQNT #### [place] [address] [place] Creatinine [Mass/volume] in Serum or PlasmaOrdered By: Marychuy Kyle on 10-06-2023 Creatinine [Mass/Vol] 0.63 mg/dL Normal 0.60-1.20 [facility] Comment on above: Performed By: #### C BC, CMP, HCGQNT #### [place] [id number] [place] Dipstick and Microscopicon 0 10-06-2023 Appearance (U) Clear Normal Clear [facility] Comment on above: Order Comment: NEED MORE SPECIMEN Name Collection Type:: Clean-Voided Midstream Performed By: #### A DDONUAPLUS #### [address] Bacteria,Urine None Seen Normal None Seen [facility] Comment on above: Order Comment: NEED MORE SPECIMEN Name Collection Type:: Clean-Voided Midstream Performed By: #### A DDONUAPLUS #### [address] Bilirubin,Urine Negative Normal Negative [facility] Comment on above: Order Comment: NEED MORE SPECIMEN Name Collection Type:: Clean-Voided Midstream Performed By: #### A DDONUAPLUS #### [address] Glucose Ql (U) Normal Normal Normal [facility] Comment on above: Order Comment: NEED MORE SPECIMEN Name Collection Type:: Clean-Voided Midstream Performed By: #### A DDONUAPLUS #### [address] Hyaline Casts,Urine 0-8 Normal 0-8 [facility] Comment on above: Order Comment: NEED MORE SPECIMEN Name Collection Type:: Clean-Voided Midstream Result Comment: PERF ORMED BY: [place] [address] PATHOLOGIST [employer] LION STANLEY M.D. Performed By: #### A DDONUAPLUS #### [address] Ketones Ql (U) Negative Normal Negative [facility] Comment on above: Order Comment: NEED MORE SPECIMEN Name Collection Type:: Clean-Voided Midstream Performed By: #### A DDONUAPLUS #### [address] Leukocyte esterase Test strip Ql (U) 1+ High Negative [facility] Comment on above: Order Comment: NEED MORE SPECIMEN Name Collection Type:: Clean-Voided Midstream Performed By: #### A DDONUAPLUS #### [place] [address] [place] Nitrite,Urine Negative Normal Negative [facility] Comment on above: Order Comment: NEED MORE SPECIMEN Name Collection Type:: Clean-Voided Midstream Performed By: #### A DDONUAPLUS #### [place] [address] [place] Occult Blood,Urine Negative Normal Negative [facility] Comment on above: Order Comment: NEED MORE SPECIMEN Name Collection Type:: Clean-Voided Midstream Result Comment: PERF ORMED BY: [place] [address] PATHOLOGIST [employer] LION STANLEY M.D. Performed By: #### A DDONUAPLUS #### [address] Protein,Urine Negative Normal Negative [facility] Comment on above: Order Comment: NEED MORE SPECIMEN Name Collection Type:: Clean-Voided Midstream Performed By: #### A DDONUAPLUS #### [address] RBC LM.HPF (Urine sed) [#/Area] 0 /[HPF] Normal 0-4 [facility] Comment on above: Order Comment: NEED MORE SPECIMEN Name Collection Type:: Clean-Voided Midstream Performed By: #### A DDONUAPLUS #### [address] Specificy [place],Urine 1.017 Normal 1.001-1.030 [facility] Comment on above: Order Comment: NEED MORE SPECIMEN Name Collection Type:: Clean-Voided Midstream Performed By: #### A DDONUAPLUS #### [address] Squamous Epithelial Cell,Urine 3-4 High 0-2 [facility] Comment on above: Order Comment: NEED MORE SPECIMEN Name Collection Type:: Clean-Voided Midstream Performed By: #### A DDONUAPLUS #### [address] Urobilinogen,Urine Normal Normal Normal [facility] Comment on above: Order Comment: NEED MORE SPECIMEN Name Collection Type:: Clean-Voided Midstream Performed By: #### A DDONUAPLUS #### [address] WBC,Urine 3-4 Normal 0-4 [facility] Comment on above: Order Comment: NEED MORE SPECIMEN Name Collection Type:: Clean-Voided Midstream Performed By: #### A DDONUAPLUS #### [address] Erythrocyte distribution wid th [Ratio] by Automated countOrdered By: Marychuy Kyle on 10-06-2023 Erythrocyte distribution width (RBC) [Ratio] 13.4 % Normal 11.9-15.3 [facility] Comment on above: Performed By: #### C BC, CMP, HCGQNT #### [address] Erythrocytes [#/area] in Uri ne sediment by Automated countOrdered By: Marychuy Kyle on 10-06-2023 RBC Auto (Urine sed) [#/Area] 0-1 [HPF] 0-4 [facility] Erythrocytes [#/volume] in B lood by Automated countOrdered By: Marychuy Kyle on 10-06-2023 RBC (Bld) [#/Vol] 4.08 10*6/uL Normal 3.60-5.00 [facility] Comment on above: Performed By: #### C BC, CMP, HCGQNT #### [address] Glucose [Mass/volume] in Ser um or PlasmaOrdered By: Marychuy Kyle on 10-06-2023 Glucose [Mass/Vol] 100 mg/dL Normal 70-100 [facility] Comment on above: ADA recommended refe rence rangeRandom Glucose Reference Range is dependent on time and content of last meal. Glucose of more than 200 mg/dL in a nonstressed, ambulatory subject supports the diagnosis of Diabetes Mellitus. Result Comment: [place] Glucose Reference Range is dependent on time and content of last meal. Glucose of more than 200 mg/dL in a nonstressed, ambulatory subject supports the diagnosis of Diabetes Mellitus. ADA recommended reference range Performed By: #### C BC, CMP, HCGQNT #### [address] HCG,Quantitativeon HCG,Quantitative 2799.00 m[iU]/mL Normal [facility] Comment on above: Result Comment: Appr oximate Approximate hCG Gestational Age Range (mIU/ml) (weeks) 0.2-1 5-50 1-2 50-500 2-3 100-5,000 3-4 500-10,000 4-5 1,000-50,000 5-6 10,000-100,000 6-8 15,000-200,000 8-12 10,000-100,000 PERFORMED BY: [place] [address] PATHOLOGIST [employer] LION STANLEY M.D. Performed By: #### C BC, CMP, HCGQNT #### [address] Hematocrit [Volume Fraction] of Blood by Automated countOrdered By: Marychuy Kyle on 10-06-2023 Hematocrit (Bld) [Volume fraction] 36.7 % Normal 34.0-46.4 [facility] Comment on above: Performed By: #### C BC, CMP, HCGQNT #### [address] Hemoglobin [Mass/volume] in BloodOrdered By: Marychuy Kyle on 10-06-2023 Hemoglobin (Bld) [Mass/Vol] 12.6 g/dL Normal 11.8-15.4 [facility] Comment on above: Performed By: #### C BC, CMP, HCGQNT #### [address] Ketones Auto test strip (U) [Mass/Vol]Ordered By: Marychuy Kyle on 10-06-2023 Ketones (U) [Mass/Vol] Negative Negative [facility] Laboratory - UrinalysisOrder ed By: Marychuy Kyle on 10-06-2023 Hyaline casts LM Ql (Urine sed) 0-8 [LPF] 0-8 [facility] Leukocytes [#/area] in Urine sediment by Automated countOrdered By: Marychuy Kyle on 10-06-2023 WBC Auto (Urine sed) [#/Area] 3-4 [HPF] 0-4 [facility] Leukocytes [#/volume] correc inocencia for nucleated erythrocytes in Blood by Automated counOrdered By: Marychuy Kyle on 10-06-2023 WBC corrected for nucl RBC Auto (Bld) [#/Vol] 7.4 10*3/uL 3.8-11.6 [facility] Leukocytes [#/volume] in Blo od by Automated countOrdered By: Marychuy Kyle on 10-06-2023 WBC (Bld) [#/Vol] 7.4 10*3/uL Normal 3.8-11.6 [facility] Comment on above: Performed By: #### C BC, CMP, HCGQNT #### [facility] [address] [place] [address] [place] Lymphocytes [#/volume] in Bl ood by Automated countOrdered By: Marychuy Kyle on 10-06-2023 Lymphocytes (Bld) [#/Vol] 2.8 10*3/uL Normal 1.00-4.8 [facility] Comment on above: Performed By: #### C BC, CMP, HCGQNT #### [facility] [address] [place] [address] [place] Lymphocytes/100 leukocytes i n Blood by Automated countOrdered By: Marychuymargaux Kyle on 10-06-2023 Lymphocytes/100 WBC (Bld) 37.6 % Normal . [facility] Comment on above: Performed By: #### C BC, CMP, HCGQNT #### [facility] [address] [place] [address] [place] MCH [Entitic mass] by Automa inocencia countOrdered By: Marychuy Kyle on 10-06-2023 MCH (RBC) [Entitic mass] 31.0 pg Normal 24.7-34.3 [facility] Comment on above: Performed By: #### C BC, CMP, HCGQNT #### [facility] [address] [place] [address] MCHC Auto (RBC) [Mass/Vol]Or dered By: Marychuy Bullimore on 10-06-2023 MCHC (RBC) [Mass/Vol] 34.4 g/dL 32.0-35.0 [facility] MCV [Entitic volume] by Auto mated countOrdered By: Marychuy Kyle on 10-06-2023 MCV (RBC) [Entitic vol] 90.1 fL Normal 80-100 [facility] Comment on above: Performed By: #### C BC, CMP, HCGQNT #### [facility] [address] [place] [address] Monocyte distribution width [Entitic volume] in Blood by AutomatedOrdered By: Marychuy Kyle on 10-06-2023 Monocyte distribution width Auto (Bld) [Entitic vol] 17.37 % 0.00-20.00 [facility] Neutrophils [#/volume] in Bl ood by Automated countOrdered By: Marychuy Kyle on 10-06-2023 Neutrophils (Bld) [#/Vol] 4.0 10*3/uL Normal 1.8-7.7 [facility] Comment on above: Performed By: #### C BC, CMP, HCGQNT #### [facility] [address] [place] [address] Nitrite Test strip Ql (U)Ord ered By: Marychuy Kyle on 10-06-2023 Nitrite Ql (U) Negative Negative [facility] No Panel InformationOrdered By: Marychuy Kyle on 10-06-2023 Estimated GFR (CKD-EPI) > 60.0 mL/Min [facility] Creatinine Clearance (Chem 180.48 [facility] Nucleated erythrocytes [Pres ence] in Blood by Automated countOrdered By: Marychuy Kyle on 10-06-2023 Nucleated RBC Auto Ql (Bld) 0.2 /100{WBC} 0-0.5 [facility] Platelet mean volume [Entiti c volume] in Blood by Automated countOrdered By: Marychuy Phaniimore on 10-06-2023 Platelet mean volume (Bld) [Entitic vol] 7.5 fL Normal 6.3-10.7 [facility] Comment on above: Performed By: #### C BC, CMP, HCGQNT #### [facility] [address] Platelets [#/volume] in Bloo d by Automated countOrdered By: Marychuy Bullimore on 10-06-2023 Platelets (Bld) [#/Vol] 367 10*3/uL Normal 150-450 [facility] Comment on above: Performed By: #### C BC, CMP, HCGQNT #### [address] Potassium [Moles/volume] in Serum or PlasmaOrdered By: Marychuy Bullimore on 10-06-2023 Potassium [Moles/Vol] 4.1 mmol/L Normal 3.5-5.1 [facility] Comment on above: Performed By: #### C BC, CMP, HCGQNT #### [address] Protein Auto test strip (U) [Mass/Vol]Ordered By: Marychuy Bullimore on 10-06-2023 Protein (U) [Mass/Vol] Negative Negative [facility] Protein [Mass/volume] in Ser um or PlasmaOrdered By: Marychuy Bullimore on 10-06-2023 Protein [Mass/Vol] 7.4 g/dL Normal 6.4-8.9 [facility] Comment on above: Performed By: #### C BC, CMP, HCGQNT #### [address] Serum globulin measurement b y calculation (mass/volume)Ordered By: Marychuy Bullimore on 10-06-2023 Globulin (S) [Mass/Vol] 3.6 g/dL Normal [facility] Comment on above: Performed By: #### C BC, CMP, HCGQNT #### [facility] [address] [place] [address] Serum or plasma albumin/glob ulin mass ratioOrdered By: Marychuy Bullimore on 10-06-2023 Albumin/Globulin [Mass ratio] 1.1 {ratio} Normal [facility] Comment on above: Performed By: #### C BC, CMP, HCGQNT #### [address] Serum or plasma anion gap de terminationOrdered By: Marychuy Bullimore on 10-06-2023 Anion gap [Moles/Vol] 12.6 mmol/L Normal 6.0-15.0 [facility] Comment on above: Performed By: #### C BC, CMP, HCGQNT #### [address] Sodium [Moles/volume] in Ser um or PlasmaOrdered By: Marychuy Bullimore on 10-06-2023 Sodium [Moles/Vol] 139 mmol/L Normal 136-145 [facility] Comment on above: Performed By: #### C BC, CMP, HCGQNT #### [address] Specific gravity Auto test s trip (U) [Rel density]Ordered By: Marychuy Kyle on 10-06-2023 Specific gravity (U) [Rel density] 1.017 1.001-1.030 [facility] Urea nitrogen [Mass/volume] in Serum or PlasmaOrdered By: Marychuy Bullimore on 10-06-2023 Urea nitrogen [Mass/Vol] 7 mg/dL Normal 7-25 [facility] Comment on above: Performed By: #### C BC, CMP, HCGQNT #### [address] Urine clarity by refractomet ry automatedOrdered By: Marychuy Phaniimdianne on 10-06-2023 Clarity Refractometry automated (U) Clear Clear [facility] Urine glucose measurement by automated test strip (mass/volume)Ordered By: Marychuy Kyle on 10-06-2023 Glucose Auto test strip (U) [Mass/Vol] Normal mg/dL Normal [facility] Urine hemoglobin detection b y automated test stripOrdered By: Marychuy Kyle on 10-06-2023 Hemoglobin Auto test strip Ql (U) Negative Negative [facility] Urine leukocyte esterase det ection by automated test stripOrdered By: Marychuy Kyle on 10-06-2023 Leukocyte esterase Auto test strip Ql (U) 1+ Negative [facility] Urine pH measurement by auto mated test stripOrdered By: Marychuy Kyle on 10-06-2023 pH (U) 7.0 [pH] Normal 5.0-9.0 [facility] Comment on above: Order Comment: NEED MORE SPECIMEN Name Collection Type:: Clean-Voided Midstream Performed By: #### A DDONUAPLUS #### [address] Urobilinogen Auto test strip (U) [Mass/Vol]Ordered By: Marychuy Kyle on 10-06-2023 Urobilinogen (U) [Mass/Vol] Normal mg/dL Normal [facility] Basia 09-11-2023 LIZ Telephone (MARTIN) -------- JALEESA PAINTING ([id number]) 1990 F Date Time Provider Department 09/11/23 TONYA SENIOR During your visit today, we recorded the following information about you: Tonya Senior APRN.CNP 09/11/2023 11:19 AM Signed Attempted to call pt, re: hypothyroid and low vitamin d levels, no answer, left vm. EFRAIN Albright Megan 09/22/2023 9:36 AM Signed ----- Message from Anna Ortiz RD sent at 09/17/2023 3:17 PM EDT ----- Regarding: virtual follow up Please schedule for a virtual up 6/7 at 1. The patient is aware, no call needed. Thank you! Meme Hernandez 09/22/2023 9:38 AM Signed Can not schedule patient as there is already a patient scheduled for that day and time. Please advise. Thanks Meme Cash Meme Castrejon 09/26/2023 8:15 AM Signed Per staff encounter [...] Date Reviewed: 08/20/2023 Reviewed by: Tonya Senior APRN.[employer] - Fully Assessed Reason for Visit: Results [...] Encounter Status:Closed by TONYA SENIOR on 09/23/23 [facility] NICOTINE AND METAB, URon URIN ANABASINE QUANT <5 Normal [facility] Comment on above: Order Comment: Speci men Type: URINE SPECIMEN Ordering Facility: [facility] Address: [address] [place] [address] Performed By: #### U NICOT #### [facility] CLIA [id number] [address] [place] [address] URIN COTININE QUANT <15 Normal [facility] Comment on above: Order Comment: Speci men Type: URINE SPECIMEN Ordering Facility: [facility] Address: [address] [place] [address] Performed By: #### U NICOT #### [facility] CLIA [id number] [address] [place] [address] URIN NICOTINE QUANT <15 Normal [facility] Comment on above: Order Comment: Speci men Type: URINE SPECIMEN Ordering Facility: [facility] Address: [address] [place] [address] Result Comment: INTE RPRETIVE INFORMATION: Nicotine and Metabolites, Urine, Quantitative Methodology: Quantitative Liquid Chromatography-Tandem Mass Spectrometry Positive cutoff: Nicotine 15 ng/mL Cotinine 15 ng/mL 2-IO-Fterplyi 50 ng/mL Anabasine 5 ng/mL For medical [...] developed and its performance characteristics determined by [facility]. It has not been cleared or approved by the [place] Food and Drug Administration. This test was performed in a CLIA certified laboratory and is intended for clinical purposes. Performed By: [facility] [address] [place], [place] [id number] Neck Pinner: Rex Zuleta MD, PhD CLIA Number: [id number] Performed By: #### U NICOT #### [facility] CLIA [id number] [address] [place] [address] URINE 3 [place] COTININE <50 Normal [facility] Comment on above: Order Comment: Speci men Type: URINE SPECIMEN Ordering Facility: [facility] Address: [address] [place] [address] Performed By: #### U NICOT #### [facility] CLIA [id number] [address] [place] [address] TOXICOLOGY SCREEN, ROUTINE U RINEon 09-08-2023 Amphetamines Confirm (U) [Mass/Vol] Negative Normal Negative [facility] Comment on above: Order Comment: Speci men Type: URINE SPECIMEN Ordering Facility: [facility] Address: [address] [place] [address] Result Comment: Cuto ff threshold at 1000 ng/mL. Performed By: #### U TOX2 #### [facility] CLIA [id number] [address] [place] [address] [place] BARBITURATES, URINE Negative Normal Negative [facility] Comment on above: Order Comment: Speci men Type: URINE SPECIMEN Ordering Facility: [facility] Address: [address] [place] [address] Result Comment: Cuto ff threshold at 200 ng/mL. Performed By: #### U TOX2 #### [facility] CLIA [id number] [address] [place] [address] [place] BENZODIAZEPINES, UR Negative Normal Negative [facility] Comment on above: Order Comment: Speci men Type: URINE SPECIMEN Ordering Facility: [facility] Address: [address] [place] [address] Result Comment: Cuto ff threshold at 200 ng/mL. Performed By: #### U TOX2 #### [facility] CLIA [id number] [address] [place] [address] [place] Cannabinoids Screen Ql (U) Negative Normal Negative [facility] Comment on above: Order Comment: Speci men Type: URINE SPECIMEN Ordering Facility: [facility] Address: [address] [place] [address] Result Comment: Cuto ff threshold at 50 ng/mL. Performed By: #### U TOX2 #### [facility] CLIA [id number] [address] [place] [address] [place] Cocaine Ql (U) Negative Normal Negative [facility] Comment on above: Order Comment: Speci men Type: URINE SPECIMEN Ordering Facility: [facility] Address: [address] [place] [address] Result Comment: Cuto ff threshold at 300 ng/mL. Performed By: #### U TOX2 #### [facility] CLIA [id number] [address] [place] [address] [place] Ethanol (U) [Mass/Vol] <11 Normal <11 [facility] Comment on above: Order Comment: Speci men Type: URINE SPECIMEN Ordering Facility: [facility] Address: [address] [place] [address] Performed By: #### U TOX2 #### [facility] CLIA [id number] [address] [place] [address] [place] Opiates Screen Ql (U) Negative Normal Negative [facility] Comment on above: Order Comment: Speci men Type: URINE SPECIMEN Ordering Facility: [facility] Address: [address] [place] [address] Result Comment: Cuto ff threshold at 300 ng/mL. Performed By: #### U TOX2 #### [facility] CLIA [id number] [address] [place] [address] [place] oxyCODONE cutoff Screen (U) [Mass/Vol] Negative Normal Negative [facility] Comment on above: Order Comment: Speci men Type: URINE SPECIMEN Ordering Facility: [facility] Address: [address] [place] [address] Result Comment: Cuto ff threshold at 100 ng/mL. Performed By: #### U TOX2 #### [facility] CLIA [id number] [address] [place] [address] [place] Phencyclidine Ql (U) Negative Normal Negative [facility] Comment on above: Order Comment: Speci men Type: URINE SPECIMEN Ordering Facility: [facility] Address: [address] [place] [address] Result Comment: Cuto ff threshold at 25 ng/mL. Performed By: #### U TOX2 #### [facility] CLIA [id number] [address] [place] [address] [place] 25(OH)D3 SerPl-ncon 2023 25-hydroxyvitamin D3 [Mass/Vol] 11.9 ng/mL Low 31.0-80.0 [facility] Comment on above: Order Comment: Speci men Type: BLOOD SPECIMEN Ordering Facility: [facility] Address: [address] [place] [address] Performed By: #### 2 276-4, 9, 2283-8 #### [facility] CLIA [id number] [address] [place] [address] [place] CBC W Auto Differential pane l (Bld)on 09-05-2023 Basophils (Bld) [#/Vol] 10*3/uL Normal <0.11 [facility] Comment on above: Order Comment: Speci men Type: BLOOD SPECIMEN Ordering Facility: [facility] Address: [address] [place] [address] Performed By: #### 2 276-4, 2131-9, 2283-8 #### [facility] CLIA [id number] [address] [place] [address] [place] Basophils/100 WBC (Bld) 0.3 % Normal [facility] Comment on above: Order Comment: Speci men Type: BLOOD SPECIMEN Ordering Facility: [facility] Address: [address] [place] [address] Performed By: #### 2 276-4, 2132-01, 2283-12 #### [facility] CLIA [id number] [address] [place] [address] [place] Differential cell count method Nom (Bld) Auto Normal [facility] Comment on above: Order Comment: Speci men Type: BLOOD SPECIMEN Ordering Facility: [facility] Address: [address] [place] [address] Performed By: #### 2 276-4, 2132-01, 2283-12 #### [facility] CLIA [id number] [address] [place] [address] [place] Eosinophils (Bld) [#/Vol] 0.09 10*3/uL Normal <0.46 [facility] Comment on above: Order Comment: Speci men Type: BLOOD SPECIMEN Ordering Facility: [facility] Address: [address] [place] [address] Performed By: #### 2 276-4, 2132-01, 2283-12 #### [facility] CLIA [id number] [address] [place] [address] [place] Eosinophils/100 WBC (Bld) 1.3 % Normal [facility] Comment on above: Order Comment: Speci men Type: BLOOD SPECIMEN Ordering Facility: [facility] Address: [address] [place] [address] Performed By: #### 2 276-4, 2132-01, 2283-12 #### [facility] CLIA [id number] [address] [place] [address] [place] Erythrocyte distribution width (RBC) [Ratio] 12.6 % Normal 11.5-15.0 [facility] Comment on above: Order Comment: Speci men Type: BLOOD SPECIMEN Ordering Facility: [facility] Address: [address] [place] [address] Performed By: #### 2 276-4, 2132-01, 2283-12 #### [facility] CLIA [id number] [address] [place], [place] [address] [place] Hematocrit (Bld) [Volume fraction] 38.0 % Normal 36.0-46.0 [facility] Comment on above: Order Comment: Speci men Type: BLOOD SPECIMEN Ordering Facility: [facility] Address: [address] [place] [address] Performed By: #### 2 276-4, 2132-01, 2283-12 #### [facility] CLIA [id number] [address] [place] [address] [place] Hemoglobin (Bld) [Mass/Vol] 12.8 g/dL Normal 11.5-15.5 [facility] Comment on above: Order Comment: Speci men Type: BLOOD SPECIMEN Ordering Facility: [facility] Address: [address] [place] [address] Performed By: #### 2 276-4, 2132-01, 2283-12 #### [facility] CLIA [id number] [address] [place] [address] [place] Immature granulocytes (Bld) [#/Vol] 10*3/uL Normal <0.10 [facility] Comment on above: Order Comment: Speci men Type: BLOOD SPECIMEN Ordering Facility: [facility] Address: [address] [place] [address] Performed By: #### 2 276-4, 2132-01, 2283-12 #### [facility] CLIA [id number] [address] [place] [address] [place] Immature granulocytes/100 WBC (Bld) 0.1 % Normal [facility] Comment on above: Order Comment: Speci men Type: BLOOD SPECIMEN Ordering Facility: [facility] Address: [address] [place] [address] Performed By: #### 2 276-4, 2132-01, 2283-12 #### [facility] CLIA [id number] [address] [place] [address] [place] Lymphocytes (Bld) [#/Vol] 3.49 10*3/uL Normal 1.00-4.00 [facility] Comment on above: Order Comment: Speci men Type: BLOOD SPECIMEN Ordering Facility: [facility] Address: [address] [place] [address] Performed By: #### 2 276-4, 2132-01, 2283-12 #### [facility] CLIA [id number] [address] [place] [address] [place] Lymphocytes/100 WBC (Bld) 48.6 % Normal [facility] Comment on above: Order Comment: Speci men Type: BLOOD SPECIMEN Ordering Facility: [facility] Address: [address] [place] [address] Performed By: #### 2 276-4, 2132-01, 2283-12 #### [facility] CLIA [id number] [address] [place] [address] [place] MCH (RBC) [Entitic mass] 30.0 pg Normal 26.0-34.0 [facility] Comment on above: Order Comment: Speci men Type: BLOOD SPECIMEN Ordering Facility: [facility] Address: [address] [place] [address] Performed By: #### 2 276-4, 2132-01, 2283-12 #### [facility] CLIA [id number] [address] [place] [address] [place] MCHC (RBC) [Mass/Vol] 33.7 g/dL Normal 30.5-36.0 [facility] Comment on above: Order Comment: Speci men Type: BLOOD SPECIMEN Ordering Facility: [facility] Address: [address] [place] [address] Performed By: #### 2 276-4, 2132-01, 2283-12 #### [facility] CLIA [id number] [address] [place] [address] [place] MCV (RBC) [Entitic vol] 89.2 fL Normal 80.0-100.0 [facility] Comment on above: Order Comment: Speci men Type: BLOOD SPECIMEN Ordering Facility: [facility] Address: [address] [place] [address] Performed By: #### 2 276-4, 2132-01, 2283-12 #### [facility] CLIA [id number] [address] [place] [address] [place] Monocytes (Bld) [#/Vol] 0.48 10*3/uL Normal <0.87 [facility] Comment on above: Order Comment: Speci men Type: BLOOD SPECIMEN Ordering Facility: [facility] Address: [address] [place] [address] Performed By: #### 2 276-4, 2132-01, 2283-12 #### [facility] CLIA [id number] [address] [place] [address] [place] Monocytes/100 WBC (Bld) 6.7 % Normal [facility] Comment on above: Order Comment: Speci men Type: BLOOD SPECIMEN Ordering Facility: [facility] Address: [address] [place] [address] Performed By: #### 2 276-4, 2132-01, 2283-12 #### [facility] CLIA [id number] [address] [place] [address] [place] Neutrophils (Bld) [#/Vol] 3.09 10*3/uL Normal 1.45-7.50 [facility] Comment on above: Order Comment: Speci men Type: BLOOD SPECIMEN Ordering Facility: [facility] Address: [address] [place] [address] Performed By: #### 2 276-4, 2132-01, 2283-12 #### [facility] CLIA [id number] [address] [place] [address] [place] Neutrophils/100 WBC (Bld) 43.0 % Normal [facility] Comment on above: Order Comment: Speci men Type: BLOOD SPECIMEN Ordering Facility: [facility] Address: [address] [place] [address] Performed By: #### 2 276-4, 2132-01, 2283-12 #### [facility] CLIA [id number] [address] [place] [address] [place] Nucleated RBC (Bld) [#/Vol] 10*3/uL Normal <0.01 [facility] Comment on above: Order Comment: Speci men Type: BLOOD SPECIMEN Ordering Facility: [facility] Address: [address] [place] [address] Performed By: #### 2 276-4, 2132-01, 2283-12 #### [facility] CLIA [id number] [address] [place] [address] [place] Nucleated RBC/100 WBC (Bld) [Ratio] 0.0 /100 WBC Normal [facility] Comment on above: Order Comment: Speci men Type: BLOOD SPECIMEN Ordering Facility: [facility] Address: [address] [place] [address] Performed By: #### 2 276-4, 2132-01, 2283-12 #### [facility] CLIA [id number] [address] [place] [address] [place] Platelet mean volume (Bld) [Entitic vol] 9.2 fL Normal 9.0-12.7 [facility] Comment on above: Order Comment: Speci men Type: BLOOD SPECIMEN Ordering Facility: [facility] Address: [address] [place] [address] Performed By: #### 2 276-4, 2132-01, 2283-12 #### [facility] CLIA [id number] [address] [place] [address] [place] Platelets (Bld) [#/Vol] 361 10*3/uL Normal 150-400 [facility] Comment on above: Order Comment: Speci men Type: BLOOD SPECIMEN Ordering Facility: [facility] Address: [address] [place] [address] Performed By: #### 2 276-4, 9, 2283-12 #### [facility] CLIA [id number] [address] [place] [address] [place] RBC (Bld) [#/Vol] 4.26 10*6/uL Normal 3.90-5.20 [facility] Comment on above: Order Comment: Speci men Type: BLOOD SPECIMEN Ordering Facility: [facility] Address: [address] [place] [address] Performed By: #### 2 276-4, 9, 2283-12 #### [facility] CLIA [id number] [address] [place] [address] [place] WBC (Bld) [#/Vol] 7.18 10*3/uL Normal 3.70-11.00 [facility] Comment on above: Order Comment: Speci men Type: BLOOD SPECIMEN Ordering Facility: [facility] Address: [address] [place] [address] Performed By: #### 2 276-4, 2132-01, 2283-12 #### [facility] CLIA [id number] [address] [place], [place] [address] [place] Comprehensive metabolic 2000 panelon 09-05-2023 Albumin [Mass/Vol] 4.0 g/dL Normal 3.9-4.9 [facility] Comment on above: Order Comment: Speci men Type: BLOOD SPECIMEN Ordering Facility: [facility] Address: [address] [place] [address] Performed By: #### 2 4323-8 #### [facility] CLIA [id number] [address] [place] [address] ALP [Catalytic activity/Vol] 91 U/L Normal 34-123 [facility] Comment on above: Order Comment: Speci men Type: BLOOD SPECIMEN Ordering Facility: [facility] Address: [address] [place] [address] Performed By: #### 2 4323-8 #### [facility] CLIA [id number] [address] [place] [address] ALT [Catalytic activity/Vol] 15 U/L Normal 7-38 [facility] Comment on above: Order Comment: Speci men Type: BLOOD SPECIMEN Ordering Facility: [facility] Address: [address] [place] [id number] Performed By: #### 2 4323-8 #### [facility] CLIA [id number] [address] [place] [address] Anion gap [Moles/Vol] 10 mmol/L Normal 9-18 [facility] Comment on above: Order Comment: Speci men Type: BLOOD SPECIMEN Ordering Facility: [facility] Address: [address] [place] [address] Performed By: #### 2 4323-8 #### [facility] CLIA [id number] [address] [place] [address] AST [Catalytic activity/Vol] 13 U/L Normal 13-35 [facility] Comment on above: Order Comment: Speci men Type: BLOOD SPECIMEN Ordering Facility: [facility] Address: [address] [place] [id number] Performed By: #### 2 4323-8 #### [facility] CLIA [id number] [address] [place] [address] Bilirubin [Mass/Vol] 0.3 mg/dL Normal 0.2-1.3 [facility] Comment on above: Order Comment: Speci men Type: BLOOD SPECIMEN Ordering Facility: [facility] Address: [address] [place] [id number] Performed By: #### 2 4323-8 #### [facility] CLIA [id number] [address] [place] [address] Calcium [Mass/Vol] 9.5 mg/dL Normal 8.5-10.2 [facility] Comment on above: Order Comment: Speci men Type: BLOOD SPECIMEN Ordering Facility: [facility] Address: [address] [place] [id number] Performed By: #### 2 4323-8 #### [facility] CLIA [id number] [address] [place] [address] Chloride [Moles/Vol] 106 mmol/L High 97-105 [facility] Comment on above: Order Comment: Speci men Type: BLOOD SPECIMEN Ordering Facility: [facility] Address: [address] [place] [address] Performed By: #### 2 4323-8 #### [facility] CLIA [id number] [address] [place] [address] CO2 [Moles/Vol] 26 mmol/L Normal 22-30 [facility] Comment on above: Order Comment: Speci men Type: BLOOD SPECIMEN Ordering Facility: [facility] Address: [address] [place] [address] Performed By: #### 2 4323-8 #### [facility] CLIA [id number] [address] [place] [address] Creatinine [Mass/Vol] 0.75 mg/dL Normal 0.58-0.96 [facility] Comment on above: Order Comment: Speci men Type: BLOOD SPECIMEN Ordering Facility: [facility] Address: [address] [place] [address] Performed By: #### 2 4323-8 #### [facility] CLIA [id number] [address] [place] [address] Creatinine and Glomerular filtration rate.predicted panel (S/P/Bld) 109 mL/min/1.73m??? Normal >=60 [facility] Comment on above: Order Comment: Speci men Type: BLOOD SPECIMEN Ordering Facility: [facility] Address: [address] [place] [address] Result Comment: Stephani mated Glomerular Filtration Rate [...] GFR. Performed By: #### 2 4323-8 #### [facility] CLIA [id number] [address] [place] [address] Glucose [Mass/Vol] 104 mg/dL High 74-99 [facility] Comment on above: Order Comment: Speci men Type: BLOOD SPECIMEN Ordering Facility: [facility] Address: [address] [place] [address] Result Comment: The [place] [employer] (ADA) provides guidance for cutoff [...] Standards of Medical Care in Diabetes 2016, [place] [employer]. Diabetes Care. 2016.39(Suppl 1). Performed By: #### 2 4323-8 #### [facility] CLIA [id number] [address] [place] [address] Potassium [Moles/Vol] 4.2 mmol/L Normal 3.7-5.1 [facility] Comment on above: Order Comment: Speci men Type: BLOOD SPECIMEN Ordering Facility: [facility] Address: [address] [place] [address] Performed By: #### 2 4323-8 #### [facility] CLIA [id number] [address] [place] [address] Protein [Mass/Vol] 7.4 g/dL Normal 6.3-8.0 [facility] Comment on above: Order Comment: Speci men Type: BLOOD SPECIMEN Ordering Facility: [facility] Address: [address] [place], [place] [address] Performed By: #### 2 4323-8 #### [facility] CLIA [id number] [address] [place] [address] Sodium [Moles/Vol] 142 mmol/L Normal 136-144 [facility] Comment on above: Order Comment: Speci men Type: BLOOD SPECIMEN Ordering Facility: [facility] Address: [address] [place] [address] Performed By: #### 2 4323-8 #### [facility] CLIA [id number] [address] [place] [address] Urea nitrogen [Mass/Vol] 12 mg/dL Normal 7-21 [facility] Comment on above: Order Comment: Speci men Type: BLOOD SPECIMEN Ordering Facility: [facility] Address: [address] [place] [address] Performed By: #### 2 4323-8 #### [facility] CLIA [id number] [address] [place] [address] Ferritin SerPl-mCncon 2023 Ferritin [Mass/Vol] 86.7 ng/mL Normal 14.7-205.1 [facility] Comment on above: Order Comment: Speci men Type: BLOOD SPECIMEN Ordering Facility: [facility] Address: [address] [place] [address] Performed By: #### 2 276-4, 9, 8 #### [facility] CLIA [id number] [address] [facility] [id number] [address] [place] Folate SerPl-mCncon 09-05-19 24 Folate [Mass/Vol] 12.0 ng/mL Normal >4.[address] [facility] Comment on above: Order Comment: Speci men Type: BLOOD SPECIMEN Ordering Facility: [facility] Address: [address] [place] [address] Performed By: #### 2 276-4, 9, 8 #### [facility] CLIA [id number] [address] [place] [address] [place] H. pylori IgG IA Qlon 2023 H. PYLORI IGG, QUAL Negative Normal Negative [facility] Comment on above: Order Comment: Laury bradshaw Type: BLOOD SPECIMEN Ordering Facility: [facility] Address: [address] [place] [address] Result Comment: Cash ot exclude H. pylori infection if the specimen collected 3-4 weeks after onset of symptoms. Performed By: #### 2 276-4, 2131-9, 2283-8 #### [facility] CLIA [id number] [address] [place] [address] [place] HbA1c (Bld)on 09-05-2023 Average glucose Estimated from glycated hemoglobin (Bld) [Mass/Vol] 108 mg/dL Normal [facility] Comment on above: Order Comment: Laury bradshaw Type: BLOOD SPECIMEN Ordering Facility: [facility] Address: [address] [place] [address] Result Comment: eAG: (Estimated average glucose) is a calculated value from HgbA1c and is outside medical sales representative of the average blood glucose level in the last 2-3 month period. Performed By: #### 5 5454-3 #### [facility] CLIA [id number] [address] [place] [address] [place] HbA1c (Bld) [Mass fraction] 5.4 % Normal 4.3-5.6 [facility] Comment on above: Order Comment: Laury bradshaw Type: BLOOD SPECIMEN Ordering Facility: [facility] Address: [address] [place] [address] Result Comment: Amer ican Diabetes Association guidelines indicate that patients with HgbA1c in the range 5.7-6.4% are at increased risk for development of diabetes, and intervention by lifestyle modification may be beneficial. HgbA1c greater or equal to 6.5% is considered diagnostic of diabetes. Performed By: #### 5 5454-3 #### [facility] CLIA [id number] [address] [place], [place] [address] [place] Iron and Iron binding capaci ty panelon 09-05-2023 Iron [Mass/Vol] 94 ug/dL Normal 41-186 [facility] Comment on above: Order Comment: Speci men Type: BLOOD SPECIMEN Ordering Facility: [facility] Address: [address] [place] [address] Performed By: #### 5 0190-8, 6-3, 37877-9 #### [facility] CLIA [id number] [address] [place] [address] [place] #### 81730-3 #### [facility] CLIA [id number] [address] [place] [address] [place] [facility] CLIA [id number] [address] [place] [address] Iron binding capacity [Mass/Vol] 310 ug/dL Normal 232-386 [facility] Comment on above: Order Comment: Speci men Type: BLOOD SPECIMEN Ordering Facility: [facility] Address: [address] [place] [address] Performed By: #### 5 0190-8, 3015-3, 39895-3 #### [facility] CLIA [id number] [address] [place] [address] [place] #### 87549-4 #### [facility] CLIA [id number] [address] [place], [place] [address] [place] [facility] CLIA [id number] [address] [place] [address] Iron/TIBC [Molar ratio] 30.3 % Normal 15.0-57.0 [facility] Comment on above: Order Comment: Speci men Type: BLOOD SPECIMEN Ordering Facility: [facility] Address: [address] [place] [address] Performed By: #### 5 0190-8, 6-3, 51651-5 #### [facility] CLIA [id number] [address] [place] [address] [place] #### 12401-5 #### [facility] CLIA [id number] [address] [place] [address] [place] [facility] CLIA [id number] [address] [place] [address] Lipid 1996 panelon 4 Cholesterol [Mass/Vol] 179 mg/dL Normal <200 [facility] Comment on above: Order Comment: Speci men Type: BLOOD SPECIMEN Ordering Facility: [facility] Address: [address] [place] [address] Result Comment: <200 mg/dL, Desirable 200-239 mg/dL, Borderline high >239 mg/dL, High Performed By: #### 2 276-4, 2132-01, 2283-12 #### [facility] CLIA [id number] [address] [place] [address] [place] Cholesterol in HDL [Mass/Vol] 45 mg/dL Normal >39 [facility] Comment on above: Order Comment: Speci men Type: BLOOD SPECIMEN Ordering Facility: [facility] Address: [address] [place] [address] Result Comment: 40-5 9 mg/dL, Acceptable >59 mg/dL, High: Negative risk factor for coronary heart disease <40 mg/dL, Low: Positive risk factor for coronary heart disease Performed By: #### 2 276-4, 2132-01, 2283-12 #### [facility] CLIA [id number] [address] [place] [address] [place] Cholesterol in LDL [Mass/Vol] 119 mg/dL High <100 [facility] Comment on above: Order Comment: Speci men Type: BLOOD SPECIMEN Ordering Facility: [facility] Address: [address] [place] [address] Result Comment: <100 mg/dL, Optimal 100-129 mg/dL, Near optimal/above optimal 130-159 mg/dL, Borderline high 160-189 mg/dL, High >189 mg/dL, Very high Secondary prevention optimal LDL Cholesterol levels are recommended to be < 70 mg/dL Performed By: #### 2 276-4, 2132-01, 2283-12 #### [facility] CLIA [id number] [address] [place] [address] [place] Cholesterol in LDL/Cholesterol in HDL [Mass ratio] 2.64 {ratio} High <2.54 [facility] Comment on above: Order Comment: Laury bradshaw Type: BLOOD SPECIMEN Ordering Facility: [facility] Address: [address] [place] [address] Result Comment: Refe mikayla: 1. National Cholesterol Education Program ATP III Guideline At-A-Glance Quick Desk Reference: National Heart, Lung, and Blood [place]. National Institutes of Health. 2001: NIH Publication No. 01-3305. 2. An International Atherosclerosis Society position paper: global recommendations for the management of dyslipidemia: executive summary, Atherosclerosis. 2014: 232(2):410-413. Performed By: #### 2 276-4, 2132-01, 2283-12 #### [facility] CLIA [id number] [address] [place] [address] [place] Cholesterol in VLDL [Mass/Vol] 15 mg/dL Normal <30 [facility] Comment on above: Order Comment: Laury bradshaw Type: BLOOD SPECIMEN Ordering Facility: [facility] Address: [address] [place] [address] Performed By: #### 2 276-4, 2132-01, 2283-12 #### [facility] CLIA [id number] [address] [place] [address] [place] Cholesterol non HDL [Mass/Vol] 134 mg/dL High <130 [facility] Comment on above: Order Comment: Laury bradshaw Type: BLOOD SPECIMEN Ordering Facility: [facility] Address: [address] [place] [address] Result Comment: <130 mg/dL, Optimal 130-159 mg/dL, Near optimal/above optimal 160-189 mg/dL, Borderline high 190-219 mg/dL, High >219 mg/dL, Very high Secondary prevention optimal non HDL Cholesterol levels are recommended to be <100 mg/dL Performed By: #### 2 276-4, 2132-01, 2283-12 #### [facility] CLIA [id number] [address] [place] [address] [place] Cholesterol.total/Cho lesterol in HDL [Mass ratio] 3.98 {ratio} Normal <5.10 [facility] Comment on above: Order Comment: Speci men Type: BLOOD SPECIMEN Ordering Facility: [facility] Address: [address] [place] [address] Performed By: #### 2 276-4, 2132-01, 2283-12 #### [facility] CLIA [id number] [address] [place] [address] [place] FASTING TIME 12 hrs Normal [facility] Comment on above: Order Comment: Abbii men Type: BLOOD SPECIMEN Ordering Facility: [facility] Address: [address] [place] [address] Performed By: #### 2 276-4, 2132-01, 2283-12 #### [facility] CLIA [id number] [address] [place] [address] [place] Triglyceride [Mass/Vol] 74 mg/dL Normal <150 [facility] Comment on above: Order Comment: Abbii men Type: BLOOD SPECIMEN Ordering Facility: [facility] Address: [address] [place] [address] Result Comment: <150 mg/dL, Normal 150-199 mg/dL, Borderline high 200-499 mg/dL, High >499 mg/dL, Very high Performed By: #### 2 276-4, 2132-01, 2283-12 #### [facility] CLIA [id number] [address] [place] [address] [place] NT-proBNP [facility] 09-04 Natriuretic peptide.B prohormone N-Terminal [Mass/Vol] 48 pg/mL Normal <125 [facility] Comment on above: Order Comment: Specmurray bradshaw Type: BLOOD SPECIMEN Ordering Facility: [facility] Address: [address] [place] [address] Performed By: #### 2 276-4, 9, 2283-12 #### [facility] CLIA [id number] [address] [place] [address] [place] TSH SerPl-aCncon 09-05-2023 TSH Qn 6.440 m[IU]/L High 0.270-4.200 [facility] Comment on above: Order Comment: Laury bradshaw Type: BLOOD SPECIMEN Ordering Facility: [facility] Address: [address] [place] [address] Result Comment: If t he patient is , TSH reference range varies by gestational period: First Trimester (weeks 9-12): 0.180-2.990 mIU/L Second Trimester: 0.110-3.980 mIU/L Third Trimester: 0.480-4.710 mIU/L Seth Crews et al. A Practical Approach for the Verifications and Determination of Site- and Trimester-Specific Reference Intervals for Thyroid Function tests in . Thyroid, 2019:29:3:412-420. Zhang Ybarra, et al. 2017 Guidelines of the [place] Thyroid Association for the Diagnosis and Management of Thyroid Disease during and the . Thyroid, 2017:27:3:315-389. Performed By: #### 2 276-4, 9, 2283-12 #### [facility] CLIA [id number] [address] [place], [place] [address] [place] VITAMIN B1 (THIAMINE), WHOLE BLOODon 09-05-2023 Thiamine (Bld) [Moles/Vol] 179.2 nmol/L Normal 84.3-213.3 [facility] Comment on above: Order Comment: Laury bradshaw Type: BLOOD SPECIMEN Ordering Facility: [facility] Address: [address] [place] [address] Result Comment: This assay measures the concentration of thiamine diphosphate (TDP), the primary active form of vitamin B1. Approximately 90 percent of vitamin B1 present in whole blood is TDP. Thiamine and thiamine monophosphate, which comprise the remaining 10 percent, are not measured. This test was developed and its performance characteristics determined by [facility] Pathology and Laboratory Medicine [place] ([facility]). It has not been cleared or approved by the FDA. [facility] is regulated under CLIA as qualified to perform high-complexity testing. This test is used for clinical purposes. It should not be regarded as investigational or for research. Performed By: #### B 1WB #### [facility] CLIA [id number] [address] [place] [address] [place] Vit B12 SerPl-ncon 09-04- 024 Cobalamin (Vitamin B12) [Mass/Vol] 612 pg/mL Normal 232-1245 [facility] Comment on above: Order Comment: Speci men Type: BLOOD SPECIMEN Ordering Facility: [facility] Address: [address] [place] [address] Performed By: #### 2 276-4, 2132-9, 2284-8 #### [facility] CLIA [id number] [address] [place] [address] [place] Glucose - FINGER STICKon Glucose [Mass/Vol] 5.4 mg/dL [employer] Other PAP ACOG PANEL 2: 30 to 65on 06-10-2022 . . Normal [facility] Comment on above: Result Comment: Perf ormed at: WB Performed By: #### 4 [id number] #### [facility] [address] [address] [address] Sacihn Coates Age Gdln ACOG Testing 30-65 Normal [facility] Comment on above: Performed By: #### 4 [id number] #### [facility] [address] [place], [place] [address] Dr. Sachin Coates DIAGNOSIS: Comment Normal [facility] Comment on above: Result Comment: NEGA TIVE FOR INTRAEPITHELIAL LESION OR MALIGNANCY. CELLULAR CHANGES ASSOCIATED WITH INFLAMMATION ARE PRESENT. THIS SPECIMEN WAS RESCREENED PART OF OUR SURVEY RESEARCH CENTER DIRECTOR PROGRAM. Performed at: WB Performed By: #### 4 [id number] #### [facility] [address] [place] [address] Dr. Sachin Coates HPV Aptima Negative Normal Negative [facility] Comment on above: Result Comment: This nucleic acid amplification test detects fourteen high-risk HPV types (16,18,31,33,35,39,45,51,52,56,58,59,66,68) without differentiation. Performed at: =G Performed By: #### 4 [id number] #### [facility] [address] [place] [address] Dr. Sachin Coates HPV Genotype Reflex Comment Normal [facility] Comment on above: Result Comment: Crit eria not met, HPV Genotype not performed. Performed at: WB Performed By: #### 4 [id number] #### [facility] [address] [place] [address] Dr. Sachin Coates Methodology: Comment Normal [facility] Comment on above: Result Comment: This liquid based ThinPrep(R) pap test was screened with the use of an image guided system. Performed at: WB Performed By: #### 4 [id number] #### [facility] [address] [place] [address] Dr. Sachin Coates Note: Comment Normal [facility] Comment on above: Result Comment: The Pap smear is a screening test designed to aid in the detection of premalignant and malignant conditions of the uterine cervix. It is not a diagnostic procedure and should not be used as the sole means of detecting cervical cancer. Both false-positive and false-negative reports do occur. . Performed at: WB Performed By: #### 4 [id number] #### [facility] [address] [place] [address] Dr. Sachin Coates Performed by: Comment Normal [facility] Comment on above: Result Comment: Peyton Beverly, Correctional Guard (ASCP) Performed at: WB Performed By: #### 4 [id number] #### [facility] [address] [place] [address] Dr. Sachin Coates QC reviewed by: Comment Normal [facility] Comment on above: Result Comment: Cielo Cochran, Supervisory Correctional Guard (ASCP) Performed at: WB Performed By: #### 4 [id number] #### [facility] [address] [place], [place] [address] Dr. Sachin Coates Specimen adequacy: Comment Normal [facility] Comment on above: Result Comment: Sati sfactory for evaluation. Endocervical and/or squamous metaplastic cells (endocervical component) are present. Performed at: WB Performed By: #### 4 [id number] #### [facility] [address] [place], [place] [address] Dr. Sachin Coates COVID-19 SOFIAOrdered By: Dario To on 12-02-2021 SARS-CoV+SARS-CoV-2 (COVID-19) Ag IA.rapid Ql (Resp) Negative Negative [facility] Comment on above: This is a duplicate Zuleyma SARS Antigen (PAMELLA) result to be used for statistical tracking purpose only. 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 Joelle Ramos MD Signatures Electronically signed by : Joelle Dove MD; Jul 10 2020 11:12AM EST (Author) Electronically signed by : Joelle Ramos MD; Jul 11 2020 6:01PM EST (Author) Normal [employer] ESTRADIOLon 07-08-2020 ESTRADIOL 186 pg/mL Normal [facility] Comment on above: Result Comment: Estr adiol measurement is performed using the Shruthi Dimdim Access Sensitive Estradiol Immunoassay. Estradiol testing is performed using a different test methodology at [facility] than other [facility]. Direct result comparison should only be made within the same method. REF VALUES EARLY FOLLICULAR 22-115 MID FOLLICULAR 25-115 OVULATORY PEAK 32-517 MID LUTEAL 37-246 POSTMENOPAUSE <15- 25 MALE <15- 32 Performed By: #### [facility] #### [facility] [address] [place] [address] Estradiol, Serumon 1 E2 [Mass/Vol] 186 pg/mL MG-OBGYN-Ri an 310 IVF Work Phone: Comment on above: Estradiol measuremen t is performed using the Shruthi Dimdim Access Sensitive Estradiol Immunoassay. Estradiol testing is performed using a different test methodology at [facility] than other [facility]. Direct result comparison should only be made within the same method.REF VALUESEARLY FOLLICULAR 22-115MID FOLLICULAR 25-115OVULATORY PEAK 32-517MID LUTEAL 37-246POSTMENOPAUSE <15- 25MALE <15- 32 LUTEINIZING HORMONEon 02-27- 2021 LUTEINIZING HORMONE 9.5 IU/L Normal [facility] [place] Comment on above: Result Comment: Lute inizing Hormone [LH] is performed using the Shruthi [place] Access Immunoassay. LH testing is performed using a different test methodology at [facility] than other [facility]. Direct result comparison should only be made within the same method. REF VALUES FOLLICULAR PHASE 1.5-10.0 MID-CYCLE 13.0-72.0 LUTEAL PHASE 0.5-13.0 MENOPAUSE 15.0-65.0 PREPUBERTY 0- 3.0 CHILDREN 0- 6.0 ADULT MALE 1.0- 9.0 Performed By: #### [facility] #### [facility] [address] [place] Luteinizing Hormone, Serumon 07-08-2020 Lutropin Qn 9.5 {IU/L} QM-UILLK-Ngoe an 310 IVF Work Phone: Comment on above: Luteinizing Hormone [LH] is performed using the Shruthi [place] Access Immunoassay. LH testing is performed using a different test methodology at [facility] than [facility]. Direct result comparison should only be made within the same method.REF VALUESFOLLICULAR PHASE 1.5-10.0MID-CYCLE 13.0-72.0LUTEAL PHASE 0.5-13.0MENOPAUSE 15.0-65.0PREPUBERTY 0- 3.0CHILDREN 0- 6.0ADULT MALE 1.0- 9.0 TYPE + SCREENon 07-06-2020 ABO TYPE A Normal [facility] Comment on above: Performed By: #### T +S #### [facility] [address] [place] [address] RH TYPE Positive Normal [facility] Comment on above: Performed By: #### T +S #### [facility] [address] [place] [address] ESTRADIOLon 07-05-2020 ESTRADIOL 58 pg/mL Normal [facility] Comment on above: Result Comment: Estr adiol measurement is performed using the Shruthi Dimdim Access Sensitive Estradiol Immunoassay. Estradiol testing is performed using a different test methodology at [facility] than other [facility]. Direct result comparison should only be made within the same method. REF VALUES EARLY FOLLICULAR 22-115 MID FOLLICULAR 25-115 OVULATORY PEAK 32-517 MID LUTEAL 37-246 POSTMENOPAUSE <15- 25 MALE <15- 32 Performed By: #### [facility] #### [facility] [address] [place] [address] Estradiol, Serumon E2 [Mass/Vol] 58 pg/mL MG-OBGYN-Ri sm an 310 IVF Work Phone: Comment on above: Estradiol measuremen t is performed using the Shruthi Dimdim Access Sensitive Estradiol Immunoassay. Estradiol testing is performed using a different test methodology at [facility] than other [facility]. Direct result comparison should only be made within the same method.REF VALUESEARLY FOLLICULAR 22-115MID FOLLICULAR 25-115OVULATORY PEAK 32-517MID LUTEAL 37-246POSTMENOPAUSE <15- 25MALE <15- 32 Hematologyon 07-05-2020 ABO group Nom (Bld) A MG-VETERINARY DENTIST-Rism an 310 IVF Work Phone: Blood group antibody screen Ql Negative TA-GTPSA-Noav an 310 IVF Work Phone: Rh immune globulin screen (Bld) [Interp] Positive MG-OBGYN-R ism an 310 IVF Work Phone: LUTEINIZING HORMONEon 2020 LUTEINIZING HORMONE 9.2 IU/L Normal [facility] [place] Comment on above: Result Comment: Lute inizing Hormone [LH] is performed using the Shruthi Dimdim Access Immunoassay. LH testing is performed using a different test methodology at [facility] than other [facility]. Direct result comparison should only be made within the same method. REF VALUES FOLLICULAR PHASE 1.5-10.0 MID-CYCLE 13.0-72.0 LUTEAL PHASE 0.5-13.0 MENOPAUSE 15.0-65.0 PREPUBERTY 0- 3.0 CHILDREN 0- 6.0 ADULT MALE 1.0- 9.0 Performed By: #### L H #### [facility] [address] [place] [address] Luteinizing Hormone, Serumon 07-05-2020 Lutropin Qn 9.2 {IU/L} UK-ZHFLJ-Yjck an 310 IVF Work Phone: Comment on above: Luteinizing Hormone [LH] is performed using the Shruthi Dimdim Access Immunoassay. LH testing is performed using a different test methodology at [facility] than other [facility] hospitals. Direct result comparison should only be made within the same method.REF VALUESFOLLICULAR PHASE 1.5-10.0MID-CYCLE 13.0-72.0LUTEAL PHASE 0.5-13.0MENOPAUSE 15.0-65.0PREPUBERTY 0- 3.0CHILDREN 0- 6.0ADULT MALE 1.0- 9.0 ZIPPER SEWING MACHINE OPERATOR - Office Visiton 02-0 ZIPPER SEWING MACHINE OPERATOR - Office Visit Diagnoses/Problems Assessed Morbid obesity [...] MD [facility] [phone] Julien [phone] [place] [address] Amended By: Bayron Mccarty; Jun 19 2020 10:16 AM ESTProvider Impressions Jaleesa is a 30-year-old female who [...] MD [facility] [phone] [phone] [place] Appointment Duration:. 25 minutes; greater than half of the time was spent on counseling. 1 Amended By: Bayron Mccarty; Jun 19 2020 10:16 AM ESTChief Complaint follow up History of Present [id number]/2020 9:30AM JALEESA PAINTING , 30 year is contacted for an (audio-visual, or audio only) Telehealth visit. Today's visit was provided through telemedicine conferencing: Using V[employer] platform. Consent: The concept of telemedicine? has [...] is a telehealth appointment Results/Data HCG, Beta Hwyyiergkqos49Ncl9214 11:58AMBayron Mccarty Test NameResultFlagReference HCG, Beta Quantitative<2 [...] HCG measurement is performed using the [employer] [place] Access Immunoassay which detects intact HCG and free beta HCG subunit. This test is not indicated for use as a tumor marker. HCG testing is performed using a different test methodology at [facility] than other [facility] hospitals. Direct result comparison should only be made within the same method. REF VALUES NON FEMALE <5 MALES <5 Progesterone, Ptohu33Wmp1483 11:58Bayron Stroud Test NameResultFlagReference Progesterone, Serum10.5 ng/mL REF VALUES MALE <0.3- 1.2 FOLLICULAR PHASE <0.3- 1.4 LUTEAL PHASE 3.3-25.6 MID-LUTEAL PHASE 4.4-28.0 POSTMENOPAUSAL <0.3- 0.7 FEMALES: 1ST TRIMESTER 11.2- 90.0 2ND TRIMESTER 25.6- 89.4 3RD TRIMESTER 48.4-422.5 . Patients receiving DHEA-S supplements may show false elevation of progesterone for results near 1.0 ng/mL. Contact laboratory at [phone] if alternative testing is needed. CMV IgG and IgM Bn22Hpo2139 11:58AMBibiana Bayron Test NameResultFlagReference CMV IgG AntibodyREACTIVEASee Below Reference Range: NONREACTIVE CMV IGM [id number] 11:58AMBibianaBayron Test NameResultFlagReference CMV IGM AB<30.00 AU/mL [...] testing in two or more weeks. Xray Caarxvdnnlrxrhmvxrd65Kdt 2020 12:00AMBayron Mccarty [Mar 28, 2020 9:43AM Bayron Mccarty] Reason: Unspecified for Xray Hysterosalpingogram Test NameResultFlagReference Xray Hysterosalpingogram Please click on the link to view the study images Anti Mullerian Fyfypzq57Nid9722 12:03PMBayron Mccarty Test NameResultFlagReference Anti Mullerian Hormone6.36 ng/mL For assays employing antibodies, the possibility exists for interference by heterophile antibodies in the samples.1 1.Oswald Crews. Interferences in Immunoassays - still a threat. Clin. Chem. 2000; 46: 7460-5201. This test was developed and its performance characteristics determined by [facility]. It has not been cleared or approved by the Food and Drug Administration. Reference Range: Females 26 - 30y: 1.03 - 11.10 Median 4.20 AMH concentrations of >= 1.06 ng/mL is correlated with a better response to ovarian stimulation, produced more retrievable oocytes and higher odds of live according to Carey et al. Fertility and Sterility. 2010: 94:9545-4918. The current AMH test method correlates with [...] exclude an AMH-secreting ovarian tumor. Rubella IgG Dekrchkf90Ovf7492 12:03PMBayron Mccarty Test NameResultFlagReference Rubella IgG AntibodyPOSITIVE [...] TSH WITH REFLEX TO FREE T4 IF DODCBUYE52Onn0846 12:03PMBayron Mccarty Test NameResultFlagReference Thyroid Stimulating Hormone, Serum2.17 mIU/LSee Below Reference Range: 0.44 - 3.98 TSH testing is performed using different testing methodology at [facility] than at other [facility]. Direct result comparisons should only be made within the same method. Varicella Zoster IgG Cjsijlsk25Wcc2454 12:03PMBayron Mccarty Test NameResultFlagReference Varicella Zoster IgG [...] altered results in serological assays. Vitamin D 25-Ivqudak93Ozh3441 12:03PMBayron Mccarty Test NameResultFlagReference Vitamin D 25-Hydroxy, Level17 ng/mLA . DEFICIENCY: < 20 NG/ML INSUFFICIENCY: 20-29 NG/ML SUFFICIENCY: 30-100 NG/ML THIS ASSAY ACCURATELY QUANTIFIES THE SUM OF VITAMIN D3, 25-HYDROXY AND VIT D2,25-HYDROXY. { 17-Hydroxyprogesterone, Rvikc01Qon2345 12:03PMBayron Mccarty Test NameResultFlagReference 17-Hydroxyprogesterone, Serum33 ng/dL [...] Endocrinol Metab. 1991;73:674-686; J Clin Endocrinol Metab. 1989;69;3601-2577; J Clin Endocrinol Metab. 1994;78:226-270. Pediatr Res 1988;23:525-529. MedLinePlus (accessed 10/25/13). This test was developed and its analytical performance characteristics have been determined by [facility] [place]. It has not been cleared or approved by the U.S. Food and Drug Administration. This assay has been validated pursuant to the CLIA regulations and is used for clinical purposes. DHEA Sulfate, Abcyu62Wzj9031 12:03PMBayron Mccarty Test NameResultFlagReference DHEA Sulfate, Aphqj491 ug/dL65 - 395 MATURITY-BASED REFERENCE RANGES: PUBERTAL [...] laboratory for further information. Testosterone Free + Zsgzu24Vzz5924 12:03PMBayron Mccarty Test NameResultFlagReference Testosterone, Total63 ng/dLH2-45 For additional information, please refer to http://education.[employer]/faq/ TotalTestosteroneLCMSMSF AQ165 (This link is being provided for informational/ educational purposes only.) This test was developed and its analytical performance characteristics have been determined by [employer] [place]. It has not been cleared or approved by the U.S. Food and Drug Administration. This assay has been validated pursuant to the CLIA regulations and is used for clinical purposes. Testosterone, Free Serum8.8 pg/mLH0.1-6.4 This test was developed and its analytical performance characteristics have been determined by [employer] [place]. It has not been cleared or approved by the U.S. Food and Drug Administration. This assay has been validated pursuant to the CLIA regulations and is used for clinical purposes. Hemoglobin V5I48Pjb2276 12:03PMBayron Mccarty Test NameResultFlagReference Hemoglobin A1C, Level5.5 % Diagnosis of Diabetes-Adults Non-Diabetic: < or = 5.6% Increased risk for developing diabetes: 5.7-6.4% Diagnostic of diabetes: > or = 6.5% . Monitoring of Diabetes Age (y) Therapeutic Goal (%) Adults: >18 <7.0 Pediatrics: 13-18 <7.5 7-12 <8.0 0- 6 7.5-8.5 [place] [employer]. Diabetes Care 33(S1), May 2009. Estimated Average Nbhkxic610 MG/DL GC + Chlamydia By Amplified Jlljzbbam72Lgw2203 12:03PMBayron Mccarty Test NameResultFlagReference N.GONORRHEA,AMPLIFIEDNEG ATIVENegative SOURCE: Urine Chlamydia Trach, AmplifiedNEGATIVENegativ e Hepatitis B Surface Ttmhxks37Rus7384 12:03PMBibiana Bayron Test NameResultFlagReference Hep.B Surface AgNONREACTIVESee Below Reference Range: NONREACTIVE Biotin interference may cause falsely decreased results. Patients taking a Biotin dose of up to 5 mg/day should refrain from taking Biotin for 24 hours before sample collection. Providers may contact their local laboratory for further information. Hepatitis C Antibody Ixvq71Xci0850 12:03PMBayron Mccarty Test NameResultFlagReference Hepatitis C-AntibodyNONREACTIVESee Below Reference Range: NONREACTIVE Results from patients taking biotin supplements or receiving high-dose biotin therapy should be interpreted with caution due to possible interference with this test. Providers may contact their local laboratory for further information. HIV 1/2 ANTIGEN/ANTIBODY SCREEN WITH REFLEX TO [id number] 12:03PMBayron Mccarty Test NameResultFlagRefereoneliae HIV 1/2 AG/AB SCREENNONREACTIVESee Below Reference Range: NONREACTIVE HIV Ag/Ab screen is performed using the Siemens [employer] HIV Ag/Ab Combo assay which detects the presence of HIV p24 antigen as well as antibodies to HIV-1 (Group M and O) and HIV-2. SYPHILIS SCREENING WITH NTIOUW96Iko3488 12:03PMBayron Mccarty Test NameResultFlagReference SYPHILIS TOTAL ANTIBODYNONREACTIVESee [...] ABon 04-20-2020 CMV IGM AB <30.00 Normal [facility] Comment on above: Result Comment: REFE [...] weeks. Performed By: #### C MVM2 #### [facility] [address] [place] [address] CMV IGG AND IGM ABon 020 CMV IGG AB REACTIVE Abnormal NONREACTIVE [facility] Comment on above: Performed By: #### C MV2 #### [facility] [address] [place] [address] PROGESTERONEon 04-16-2020 PROGESTERONE 10.5 ng/mL Normal [facility] Comment on above: Result Comment: REF VALUES MALE <0.3- 1.2 FOLLICULAR PHASE <0.3- 1.4 LUTEAL PHASE 3.3-25.6 MID-LUTEAL PHASE 4.4-28.0 POSTMENOPAUSAL <0.3- 0.7 FEMALES: 1ST TRIMESTER 11.2- 90.0 2ND TRIMESTER 25.6- 89.4 3RD TRIMESTER 48.4-422.5 . Patients receiving DHEA-S supplements may show false elevation of progesterone for results near 1.0 ng/mL. Contact laboratory at [phone] if alternative testing is needed. Performed By: #### P BOBBY #### [facility] [address] [place] [address] HCG,BETA-QUANTITATIVEon HCG,BETA-QUANTITATIVE <2 Normal [facility] Comment on above: Result Comment: Low- [...] Total HCG measurement is performed using the [employer] Access Immunoassay which detects intact HCG and free beta HCG subunit. This test is not indicated for use as a tumor marker. HCG testing is performed using a different test methodology at [facility] than other [facility] hospitals. Direct result comparison should only be made within the same method. 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 Roby JEWELL. History of Present Ndgijjs8004/14/2020 9:30AM JALEESA PAINTING , 30 year is contacted for an (audio-visual, or audio only) Telehealth visit. Today's visit was provided through telemedicine conferencing: Using Vindicia platform. Consent: The concept of telemedicine? has [...] 25 MCG (1000 UT) Oral Tablet; Therapy: 11Bvm5368 to Recorded Dispense: 0 Days ; #: Sufficient Tablet; Refill: 0; KEVIN = N; Record; Last Updated By: Breezy Jasso; 2020 1:15:24 PM Vitals Vital Signs Recorded: 23Cfw4715 09:08AM Height5 ft 6 in Iicyyi558 lb BMI Witpbopbxd30.81 BSA Calculated2.34 AID54Vnw7830 Gravida1 Para0 Pain Scale0 Physical Exam This is a telehealth appointment Results/Data Anti Mullerian Uqilvjb34Njd2177 12:03PMBayron Mccarty Test NameResultFlagReference Anti Mullerian Hormone6.36 ng/mL For assays employing antibodies, the possibility exists for interference by heterophile antibodies in the samples.1 1.Oswald Crews. Interferences in Immunoassays - still a threat. Clin. Chem. 2000; 46: 2905-5350. This test was developed and its performance characteristics determined by [facility] [employer]. It has not been cleared or approved by the Food and Drug Administration. Reference Range: Females 26 - 30y: 1.03 - 11.10 Median 4.20 AMH concentrations of >= 1.06 ng/mL is correlated with a better response to ovarian stimulation, produced more retrievable oocytes and higher odds of live according to Gleicher et al. Fertility and Sterility. 2010: 94:0002-0506. The current AMH test method correlates with [...] exclude an AMH-secreting ovarian tumor. Anti Mullerian Fyskxnb72Fvj6212 12:03PMBayron Mccarty Test NameResultFlagReference Anti Mullerian Hormone6.36 ng/mL For assays employing antibodies, the possibility exists for interference by heterophile antibodies in the samples.1 1.Oswald Crews. Interferences in Immunoassays - still a threat. Clin. Chem. 2000; 46: 6821-4897. This test was developed and its performance characteristics determined by [facility] [employer] [facility]. It has not been cleared or approved by the Food and Drug Administration. Reference Range: Females 26 - 30y: 1.03 - 11.10 Median 4.20 AMH concentrations of >= 1.06 ng/mL is correlated with a better response to ovarian stimulation, produced more retrievable oocytes and higher odds of live according to Gleicher et al. Fertility and Sterility. 2010: 94:0962-0009. The current AMH test method correlates with [...] exclude an AMH-secreting ovarian tumor. Rubella IgG Mohfdsxs57Poh3336 12:03PMBayron Mccarty Test NameResultFlagReference Rubella IgG AntibodyPOSITIVE [...] TSH WITH REFLEX TO FREE T4 IF [id number] 12:03PMBayron Mccarty Test NameResultFlagReference Thyroid Stimulating Hormone, Serum2.17 mIU/LSee Below Reference Range: 0.44 - 3.98 TSH testing is performed using different testing methodology at [facility] than at other [facility]. Direct result comparisons should only be made within the same method. Varicella Zoster IgG Rbukgjjt57Ssu3079 12:03PMBayron Mccarty Test NameResultFlagReference Varicella Zoster IgG [...] altered results in serological assays. Vitamin D 25-Wjqmxmo52Mfs0668 12:03PMBayron Mccarty Test NameResultFlagReference Vitamin D 25-Hydroxy, Level17 ng/mLA . DEFICIENCY: < 20 NG/ML INSUFFICIENCY: 20-29 NG/ML SUFFICIENCY: 30-100 NG/ML THIS ASSAY ACCURATELY QUANTIFIES THE SUM OF VITAMIN D3, 25-HYDROXY AND VIT D2,25-HYDROXY. { 17-Hydroxyprogesterone, Zosub24Aam3497 12:03PMBibiana Bayron Test NameResultFlagReference 17-Hydroxyprogesterone, Serum33 ng/dL Unable to [...] Endocrinol Metab. 1991;73:674-686; J Clin Endocrinol Metab. 1989;69;9497-1753; J Clin Endocrinol Metab. 1994;78:226-270. Pediatr Res 1988;23:525-529. MedLinePlus (accessed 10/25/13). This test was developed and its analytical performance characteristics have been determined by [facility]. It has not been cleared or approved by the U.S. Food and Drug Administration. This assay has been validated pursuant to the CLIA regulations and is used for clinical purposes. DHEA Sulfate, Mlkco06Bli5577 12:03PMBayron Mccarty Test NameResultFlagReference DHEA Sulfate, Yiaro642 ug/dL65 - 395 MATURITY-BASED REFERENCE RANGES: PUBERTAL [...] laboratory for further information. Testosterone Free + Exptv30Rrf6928 12:03PMBayron Mccarty Test NameResultFlagReference Testosterone, Total63 ng/dLH2-45 For additional information, please refer to http://education.[employer]/faq/ TotalTestosteroneLCMSMSF AQ165 (This link is being provided for informational/ educational purposes only.) This test was developed and its analytical performance characteristics have been determined by [employer] [place]. It has not been cleared or approved by the U.S. Food and Drug Administration. This assay has been validated pursuant to the CLIA regulations and is used for clinical purposes. Testosterone, Free Serum8.8 pg/mLH0.1-6.4 This test was developed and its analytical performance characteristics have been determined by [place]. It has not been cleared or approved by the U.S. Food and Drug Administration. This assay has been validated pursuant to the CLIA regulations and is used for clinical purposes. Hemoglobin G4F40Wmb6808 12:03PMBayron Mccarty Test NameResultFlagReference Hemoglobin A1C, Level5.5 % Diagnosis of Diabetes-Adults Non-Diabetic: < or = 5.6% Increased risk for developing diabetes: 5.7-6.4% Diagnostic of diabetes: > or = 6.5% . Monitoring of Diabetes Age (y) Therapeutic Goal (%) Adults: >18 <7.0 Pediatrics: 13-18 <7.5 7-12 <8.0 0- 6 7.5-8.5 [place] [employer]. Diabetes Care 33(S1), May 2009. Estimated Average Zmeuiof280 MG/DL GC + Chlamydia By Amplified Ziuxavmhu74Ueb9330 12:03Bayron Silva Test NameResultFlagReference N.GONORRHEA,AMPLIFIEDNEG ATIVENegative SOURCE: Urine Chlamydia Trach, AmplifiedNEGATIVENegativ e Hepatitis B Surface Psiecpb37Ufu5614 12:03Bayron Silva Test NameResultFlagReference Hep.B Surface AgNONREACTIVESee Below Reference Range: NONREACTIVE Biotin interference may cause falsely decreased results. Patients taking a Biotin dose of up to 5 mg/day should refrain from taking Biotin for 24 hours before sample collection. Providers may contact their local laboratory for further information. Hepatitis C Antibody Pdmy94Aii1958 12:03Bayron Silva Test NameResultFlagReference Hepatitis C-AntibodyNONREACTIVESee Below Reference Range: NONREACTIVE Results from patients taking biotin supplements or receiving high-dose biotin therapy should be interpreted with caution due to possible interference with this test. Providers may contact their local laboratory for further information. HIV 1/2 ANTIGEN/ANTIBODY SCREEN WITH REFLEX TO VRDUHANDSHDG27Qjb3288 12:03PMBayron Mccarty Test NameResultFlagReference HIV 1/2 AG/AB SCREENNONREACTIVESee Below Reference Range: NONREACTIVE HIV Ag/Ab screen is performed using the Siemens [employer] HIV Ag/Ab Combo assay which detects the presence of HIV p24 antigen as well as antibodies to HIV-1 (Group M and O) and HIV-2. SYPHILIS SCREENING WITH SPGGGM71Vtq3597 12:03PMBayron Mccarty Test NameResultFlagReference SYPHILIS TOTAL ANTIBODYNONREACTIVESee Below SOURCE: Reference Range: NONREACTIVE No significant level of Treponema pallidum antibody detected. Repeat testing in 2 to 4 weeks may be considered if early infection or incubating syphilis infection is suspected. Diagnoses/Problems Irregular menses (626.4) (N92.6) Morbid obesity (278.01) (E66.01) Orders HCG, Beta Quantitative; Status:Active; Requested for:77Tlr7936; Perform:Lab Services - Lab To Draw (Blood Test); Due:13Jul2020;Ordered; For:Irregular menses; Ordered By:Bayron Mccarty; Progesterone, Serum; Status:Active; Requested for:96Qqm2394; Perform:Lab Services - Lab To Draw (Blood Test); Due:46Aue3314;Ordered; For:Irregular menses; Ordered By:Bayron Mccarty; Provider Impressions [...] menses. The patient is then to use [facility]'s next cycle to track ovulation, follow-up with [...] MD [facility] [phone] Julien [phone] [place] Appointment Duration:. 25 minutes; greater than [...] MD [facility] [phone] Julien [phone] [place] 1 Amended By: Bayron Mccarty; Apr 14 2020 4:50 PM ESTSignatures Electronically signed by : Bayron Mccarty MD; Apr 14 2020 4:51PM EST (Author) Normal [facility] ZIPPER SEWING MACHINE OPERATOR - Procedure Visiton 1 05-28-2019 ZIPPER SEWING MACHINE OPERATOR - Procedure Visit Chief Complaint pt presents [...] 1 CAPSULE EVERY 12 HOURS DAILY; Therapy: 31Mmo2808 to (Evaluate:88Zom6474) Requested for: 01Pem5476; Last Rx:[id number] Ordered Rx By: Bayron Mccarty; Dispense: 5 Days ; #:10 Capsule; Refill: 0;For: Fertility testing; KEVIN = N; Verified Transmission to [place] [address]; Msg to Pharmacy: start medication the night before her procedure; Last Updated By: Cindi Lizarraga; 01/24/2020 12:08:27 PM Vitamin D 25 MCG (1000 UT) Oral Tablet; Therapy: 67Nuc4335 to Recorded Dispense: 0 Days ; #: [...] Signatures Electronically signed by : Kelle Vaz APRN-[employer]; Mar 28 2020 4:10PM EST (Author) [facility] ZIPPER SEWING MACHINE OPERATOR - Office Visiton 11-0 ZIPPER SEWING MACHINE OPERATOR - Office Visit Chief Complaint The patient is being seen today at the request of for M Consultation regarding Preconception; SILVIA Patient; Morbid Obesity- BMI 47. History of Present IllnessDear Dr. Mccarty, We had the opportunity to see your patient Jaleesa Paintign in the office of Maternal Medicine on [...] is considering single parent procreation. Her usual Export Traffic Department Manager with whom she would plan to follow with for care in a future is Dr. Ng in [place]. Active Problems Female infertility (628.9) (N97.9) Fertility [...] 1 CAPSULE EVERY 12 HOURS DAILY; Therapy: 95Xdy1146 to (Evaluate:69Jxh6351) Requested for: 86Bjh3209; Last Rx:[id number] Ordered Rx By: Bayron Mccarty; Dispense: 5 Days ; #:10 Capsule; Refill: 0; For: Fertility testing; KEVIN = N; Verified Transmission to [place] [address]; Msg to Pharmacy: start medication the night before her procedure; Last Updated By: Elham [employer]; 01/24/2020 12:08:27 PM Vitamin D 25 MCG (1000 UT) Oral Tablet; Therapy: 97Khc9439 to Recorded Dispense: 0 Days ; #: Sufficient Tablet; Refill: 0; KEVIN = N; Record; Last Updated By: Breezy Jasso; 2020 1:15:24 PM Vitals Vital Signs Recorded: 13Mar2020 01:08PM Heart Rate96 Jqetiofz239 Lhbzwrcaf16 Height5 ft 6 in Nawdkb027 lb BMI Cmdwybyotj76.91 BSA Calculated2.39 Tobacco Useb) No Fall Screeninga) No falls within the last year XRN91Moq9675 Gravida1 Para0 Pain Scale0 Diagnoses/Problems Morbid obesity [...] consultation of which greater than 50% was ubog-si-sake counseling. Weight loss prior to conception is [...] MD; Jun 12 2020 4:50PM EST Normal [facility] ANTI MULLERIAN HORMONEon ANTI MULLERIAN HORMONE 6.36 ng/mL Normal [facility] Comment on above: Result Comment: For assays employing antibodies, the possibility exists for interference by heterophile antibodies in the samples.1 1.Oswald Crews. Interferences in Immunoassays - still a threat. Clin. Chem. 2000; 46: 6476-1476. This test was developed and its performance characteristics determined by [employer]. It has not been cleared or approved by the Food and Drug Administration. Reference Range: Females 26 - 30y: 1.03 - 11.10 Median 4.20 AMH concentrations of >= 1.06 ng/mL is correlated with a better response to ovarian stimulation, produced more retrievable oocytes and higher odds of live according to Carey et al. Fertility and Sterility. 2010: 94:7474-2292. The current AMH test method correlates with [...] ovarian tumor. Performed By: #### A #### [facility] [address] [place] [address] [id number] 17-HYDROXYPROGESTERONEon 17-HYDROXYPROGESTERON E 33 ng/dL Normal [facility] Comment on above: Result Comment: Unable to [...] Endocrinol Metab. 1991;73:674-686; J Clin Endocrinol Metab. 1989;69;6473-0201; J Clin Endocrinol Metab. 1994;78:226-270. Pediatr Res 1988;23:525-529. MedLinePlus (accessed 10/25/13). This test was developed and its analytical performance characteristics have been determined by [facility] [place]. It has not been cleared or approved by the U.S. Food and Drug Administration. This assay has been validated pursuant to the CLIA regulations and is used for clinical purposes. Performed By: #### 1 7OHP #### [facility] [address] [place], [place] TESTOST,FREE AND TOTALon TESTOSTERONE TOT.LC/MS/MS 63 ng/dL High 2-45 [facility] Comment on above: Result Comment: For additional information, please refer to http://education.[employer]/faq/ VoyasGihhhxkjgcuxCXCXXOHZU514 (This link is being provided for informational/ educational purposes only.) This test was developed and its analytical performance characteristics have been determined by [facility] [place]. It has not been cleared or approved by the U.S. Food and Drug Administration. This assay has been validated pursuant to the CLIA regulations and is used for clinical purposes. Performed By: #### G [facility] #### [facility] [address] [place] [address] TESTOSTERONE,FREE 8.8 pg/mL High 0.1-6.4 [facility] Comment on above: Result Comment: This test was developed and its analytical performance characteristics have been determined by [facility] [place]. It has not been cleared or approved by the U.S. Food and Drug Administration. This assay has been validated pursuant to the CLIA regulations and is used for clinical purposes. Performed By: #### G [facility] #### [facility] [address] [place] [address] DHEA SULFATEon 01-25-2020 DHEA SULFATE 214 ug/dL Normal 65 - 395 [facility] Comment on above: Result Comment: MATU RITY-BASED [...] for further information. Performed By: #### G [facility] #### [facility] [address] [place] [address] GC + CHLAMYDIA BY AMPLIFIED DETECTIONon 01-25-2020 CHLAMYDIA TRACH.,AMPLIFIED Negative Normal Negative [facility] Comment on above: Performed By: #### G CCHA #### [facility] [address] [place] [address] N.GONORRHEA,AMPLIFIED Negative Normal Negative [facility] Comment on above: Performed By: #### G [facility] #### [facility] [address] [place] [address] HEPATITIS B SURFACE AGon HEP.B SURFACE AG NONREACTIVE Normal NONREACTIVE [facility] [place] Comment on above: Result Comment: Biot in interference may cause falsely decreased results. Patients taking a Biotin dose of up to 5 mg/day should refrain from taking Biotin for 24 hours before sample collection. Providers may contact their local laboratory for further information. Performed By: #### G [facility] #### [facility] [address] [place] [address] HEPATITIS C ABon 01-25-2020 HEPATITIS C AB NONREACTIVE Normal NONREACTIVE [facility] Comment on above: Result Comment: Resu lts from patients taking biotin supplements or receiving high-dose biotin therapy should be interpreted with caution due to possible interference with this test. Providers may contact their local laboratory for further information. Performed By: #### H CVAB #### [facility] [address] [place] [address] HIV ANTIGEN/ANTIBODY SCREENo n 01-25-2020 HIV AG/AB SCREEN NONREACTIVE Normal NONREACTIVE [facility] [place] Comment on above: Result Comment: HIV Ag/Ab screen is performed using the Siemens TendrllKasumi-sou HIV Ag/Ab Combo assay which detects the presence of HIV p24 antigen as well as antibodies to HIV-1 (Group M and O) and HIV-2. Performed By: #### G CCHA #### [facility] [address] [place] [address] RUBELLA IGG ABon 01-25-2020 RUBELLA IGG AB Positive Normal [facility] Comment on above: Result Comment: INTE RPRETATIVE [...] assays. Performed By: #### R UBIG #### [facility] [address] [place] [address] SYPHILIS SCREENING WITH REFL EXon 01-25-2020 SYPHILIS TOTAL AB NONREACTIVE Normal NONREACTIVE [facility] [place] Comment on above: Result Comment: No s ignificant level of Treponema pallidum antibody detected. Repeat testing in 2 to 4 weeks may be considered if early infection or incubating syphilis infection is suspected. Performed By: #### S YPHR #### [facility] [address] [place] [address] TSH WITH REFLEX TO FREE T4 I F ABNORMALon 01-25-2020 TSH Qn 2.17 m[IU]/L Normal 0.44 - 3.98 [facility] Comment on above: Result Comment: TSH testing is performed using different testing methodology at [facility] than at other [facility]. Direct result comparisons should only be made within the same method. Performed By: #### G CCHA #### [facility] [address] [place] [address] VARICELLA ZOSTER IGG ABon VARICELLA ZOSTER IGG AB Negative Normal NEGATIVE [facility] Comment on above: Result Comment: INTE RPRETATIVE [...] in serological assays. Performed By: #### V ARAleeG #### [facility] [address] [place] [address] VITAMIN D, 25-HYDROXYon 01-10 VITAMIN D, 25-HYDROXY 17 ng/mL Abnormal [facility] Comment on above: Result Comment: . DEFICIENCY: < 20 NG/ML INSUFFICIENCY: 20-29 NG/ML SUFFICIENCY: 30-100 NG/ML THIS ASSAY ACCURATELY QUANTIFIES THE SUM OF VITAMIN D3, 25-HYDROXY AND VIT D2,25-HYDROXY. { Performed By: #### G CCHA #### [facility] [address] [place] [address] GC + CHLAMYDIA BY AMPLIFIED DETECTIONon 01-24-2020 Lab Specimen Source Urine Normal [facility] [place] Comment on above: Performed By: #### G CCHA #### [facility] [address] [place] [address] HEMOGLOBIN A1Con 01-24-2020 HbA1c (Bld) [Mass fraction] 5.5 % Normal [facility] Comment on above: Result Comment: Diag nosis of Diabetes-Adults Non-Diabetic: < or = 5.6% Increased risk for developing diabetes: 5.7-6.4% Diagnostic of diabetes: > or = 6.5% . Monitoring of Diabetes Age (y) Therapeutic Goal (%) Adults: >18 <7.0 Pediatrics: 13-18 <7.5 7-12 <8.0 0- 6 7.5-8.5 [place] [employer]. Diabetes Care 33(S1), May 2009. Performed By: #### H BA1E #### [facility] [address] [place] [address] HbA1c (Bld) [Mass fraction] 111 MG/DL Normal [facility] Comment on above: Performed By: #### H BA1E #### [facility] [address] [place] [address] ZIPPER SEWING MACHINE OPERATOR - Office Visiton 01-10 ZIPPER SEWING MACHINE OPERATOR - Office Visit Chief Complaint 29 year [...] is currently incarcerated, and will be in residential until 2026. She is interested in pursuing fertility testing today, and pending these results would potentially be interested in single-parent procreation with donor sperm. She is not currently sexually active. She has a history of ectopic in 2011, which was treated with laparoscopic left salpingectomy in [facility]. Patient has a remote history of gonorrhea [...] Symptoms: Heavy bleeding with no severe pain PIT TANNER HISTORY: STDs: Yes, remote history of gonorrhea [...] PM Vitals Vital Signs Recorded: 24Jan2020 11:13AM Qvseoagvnra45.7 F Heart Lmri936 Rnfucmod423 Kqhcocafe62 Height5 ft 6 in Cgxsfv620 lb BMI Kdhxxqkxeb61.13 BSA Calculated2.35 Tobacco Useb) No Fall Screeninga) No falls within the last year [id number] Gravida1 Para0 Pain Scale0 Diagnoses/Problems Female infertility (628.9) (N97.9) Fertility testing (V26.21) (Z31.41) Morbid obesity (278.01) (E66.01) Irregular menses (626.4) (N92.6) Screening for STD (sexually transmitted disease) (V74.5) (Z11.3) *Orders Anti Mullerian Hormone; Status:Active; Requested for:24Jan2020; Perform:Lab Services - Lab To Draw (Non-Blood Test); Due:18Vfk3935;Ordered; For:Female infertility, Fertility testing, Irregular menses, Morbid obesity; Ordered By:Bayron Mccarty; Start: Doxycycline Monohydrate 100 MG Oral Capsule; TAKE 1 CAPSULE EVERY 12 HOURS DAILY Rx By: Bayron Mccarty; Dispense: 5 Days ; #:10 Capsule; Refill: 0; For: Fertility testing; KEVIN = N; Verified Transmission to [place] [address]; Msg to Pharmacy: start medication the night before her procedure; Last Updated By: Cindi Lizarraga; 01/24/2020 12:08:27 PM Maternal Medicine Referral Evaluation and Treatment Evaluate AND Treat Status: Hold For - Scheduling Requested for: 24Jan2020 Ordered; For: Morbid obesity; Ordered By: Bayron Mccarty Performed: Due: 06Hfw0665 17-Hydroxyprogesterone, Serum; Status:Active; Requested for:02Kcy5287; Perform:Lab Services - Lab To Draw (Blood Test); Due:19Ndb1665;Ordered; For:Screening for STD (sexually transmitted disease); Ordered By:Bayron Mccarty; DHEA Sulfate, Serum; Status:Active; Requested for:91Egt4703; Perform:Lab Services - Lab To Draw (Blood Test); Due:35Kto4037;Ordered; For:Screening for STD (sexually transmitted disease); Ordered By:Bayron Mccarty; Hemoglobin A1C; Status:Active; Requested for:09Oeo1385; Perform:Lab Services - Lab To Draw (Blood Test); Due:34Mbp4618;Ordered; For:Screening for STD (sexually transmitted disease); Ordered By:Bayron Mccarty; Rubella IgG Antibody; Status:Active; Requested for:33Udb8185; Perform:Lab Services - Lab To Draw (Blood Test); Due:51Xgu3438;Ordered; For:Screening for STD (sexually transmitted disease); Ordered By:Bayron Mccarty; Testosterone Free + Total; Status:Active; Requested for:00Hqp6390; Perform:Lab Services - Lab To Draw (Blood Test); Due:69Iov5954;Ordered; For:Screening for STD (sexually transmitted disease); Ordered By:Bayron Mccarty; TSH WITH REFLEX TO FREE T4 IF ABNORMAL; Status:Active; Requested for:01Wfh4497; Perform:Lab Services - Lab To Draw (Blood Test); Due:50Mzd2414;Ordered; For:Screening for STD (sexually transmitted disease); Ordered By:Bayorn Mccarty; Ultrasound Pelvis Transvaginal; Status:Hold For - Scheduling; Requested for:24Jan2020; Perform:[facility]; Order Comments:will call with menses to schedule; Due:84Ueh3998;Ordered; For:Screening for STD (sexually transmitted disease); Ordered By:Bayron Mccarty; Radiologist to Determine Optimal Study : Y What are the patient's signs and symptoms? : fert testing Varicella Zoster IgG Antibody; Status:Active; Requested for:71Gdo6054; Perform:Lab Services - Lab To Draw (Blood Test); Due:24Nym8473;Ordered; For:Screening for STD (sexually transmitted disease); Ordered By:Bayron Mccarty; Vitamin D 25-Hydroxy; Status:Active; Requested for:61Tqy4278; Perform:Lab Services - Lab To Draw (Blood Test); Due:82Hwa9613;Ordered; For:Screening for STD (sexually transmitted disease); Ordered By:Bayron Mccarty; Xray Hysterosalpingogram; Status:Hold For - Scheduling; Requested for:25Eqt0847; Perform:[facility]; Order Comments:will call with menses to schedule. schedule between CD5-12. start doxycycline night prior to procedure; Due:53Czd7722;Ordered; For:Screening for STD (sexually transmitted disease); Ordered By:Bayron Mccarty; Radiologist to Determine Optimal Study : Y What are the patient's signs and symptoms? : fert testing Tobacco Use Screening; Status:Complete; Done: 33Mqc2003 Perform:Not Applicable;Ordered; For:SocHx: Never a smoker; Ordered [...] sent to her home pharmacy ([facility] in [place]) [ ] Day 3 FSH, LH, E2 [x] AMH [x] TSH [x] Prolactin [x] Testosterone, DHEAS [x] HgA1C [x] STD screening [x ] Preconceptual screening including Rubella,Varicella, Blood type [ ] Genetic Screen with [employer] - will consider [ ] Take vitamins [x] Return to see FEEDER SWITCHBOARD OPERATOR after workup complete to discuss management plan [...] REFL EXon 01-24-2020 Lab Specimen Source Normal [facility] [place] Comment on above: Performed By: #### S YPHR #### [facility] [address] [place] [address] Performed By: #### Jovany ARZG #### [facility] [address] [place] [address] Performed By: #### R UBIG #### [facility] [address] [place] [id number] Vital Signs Date Time Vital Sign Value Performing Clinician Facility 10-06-2023 17:42-0400 Body height 167.64 cm [facility] Work Phone: [facility] 10-06-2023 17:42-0400 Body temperature 98.3 [degF] [facility] Work Phone: [facility] 10-06-2023 17:42-0400 Body weight 134 kg [facility] Work Phone: [facility] 10-06-2023 17:42-0400 Diastolic blood pressure 94 mm[Hg] [facility] Work Phone: [facility] 10-06-2023 17:42-0400 Heart rate 98 /min Services [facility] [employer] Work Phone: [facility] 10-06-2023 17:42-0400 Respiratory rate 18 /min Services [facility] [employer] Work Phone: [facility] 10-06-2023 17:42-0400 SaO2% (BldA) [Mass fraction] 100 % Services [facility] [employer] Work Phone: [facility] 10-06-2023 17:42-0400 Systolic blood pressure 142 mm[Hg] [facility] [employer] Work Phone: [facility] 09-17-2023 14:22-0400 Body height 167.[address] [facility] 09-17-2023 14:22-0400 Body mass index (BMI) [Ratio] 47.61 kg/m2 Anna Ortiz RD [facility] 09-17-2023 14:22-0400 Body weight 133.[address] [facility] 08-20-2023 13:05-040 Body height 167.6 cm Tonya Senior APRN.[employer] Work Phone: [facility] 08-20-2023 13:05-0400 Body weight 133.81 kg Tonya Senior APRN.[employer] Work Phone: [facility] 08-07-2023 15:23-0400 Body height 168.91 cm [facility] [employer] Work Phone: [facility] 08-07-2023 15:23-0400 Body mass index (BMI) [Ratio] 46.9 kg/m2 [facility] [employer] Work Phone: [facility] 08-07-2023 15:23-0400 Body weight 133.89 kg [facility] [employer] Work Phone: [facility] 08-07-2023 15:23-0400 Diastolic blood pressure 83 mm[Hg] [facility] [employer] Work Phone: [facility] 08-07-2023 15:23-0400 Heart rate 101 /min [facility] [employer] Work Phone: [facility] 08-07-2023 15:23-0400 Respiratory rate 18 /min [facility] [employer] Work Phone: [facility] 08-07-2023 15:23-0400 SaO2% (BldA) [Mass fraction] 98 % [facility] [employer] Work Phone: [facility] 08-07-2023 15:23-0400 Systolic blood pressure 120 mm[Hg] [facility] [employer] Work Phone: [facility] 06-13-2023 11:00-0500 Body height 168.28 cm [employer] Other [facility] 06-13-2023 11:00-0500 Body mass index (BMI) [Ratio] 48.53 kg/m2 [employer] Other [employer] Other 06-13-2023 11:00-0500 Body weight 137.44 kg [employer] Other [employer] Other 06-13-2023 11:00-0500 Body weight 137.43 kg [facility] [employer] Work Phone: [facility] 06-13-2023 11:00-0500 Diastolic blood pressure 82 mm[Hg] Nicholas Michaels Other [facility] 06-13-2023 11:00-0500 Respiratory rate 18 /min Nicholas Michaels Other [employer] Other 06-13-2023 11:00-0500 SaO2% (BldA) [Mass fraction] 97 % Nicholas Michaels Other [employer] Other 06-13-2023 11:00-0500 Systolic blood pressure 120 mm[Hg] Nicholas Gigzon Other [facility] 01-08-2023 10:45-0400 Body height 168.28 cm Nicholas Michaels Other [employer] Other 01-08-2023 10:45-0400 Body mass index (BMI) [Ratio] 52.89 kg/m2 Nicholas Michaels Other [employer] Other 01-08-2023 10:45-0400 Body weight 149.78 kg Nicholas Michaels Other [employer] Other 01-08-2023 10:45-0400 Diastolic blood pressure 81 mm[Hg] Nicholas Michaels Other [employer] Other 01-08-2023 10:45-0400 Respiratory rate 18 /min Nicholas Gigzon Other [employer] Other 01-08-2023 10:45-0400 SaO2% (BldA) [Mass fraction] 97 % Nicholas Gigzon Other [employer] Other 01-08-2023 10:45-0400 Systolic blood pressure 122 mm[Hg] Nicholas Michaels Other [employer] Other 06-18-2022 16:57-0500 Body height 167.64 cm [facility] Work Phone: [facility] 06-18-2022 16:57-0500 Body weight 157 kg [facility] Work Phone: [facility] 06-18-2022 16:56-0500 Body temperature 98.3 [degF] [facility] Work Phone: [facility] 06-18-2022 16:56-0500 Diastolic blood pressure 67 mm[Hg] [facility] Work Phone: [facility] 06-18-2022 16:56-0500 Heart rate 95 /min [facility] Work Phone: [facility] 06-18-2022 16:56-0500 Respiratory rate 20 /min [facility] Work Phone: [facility] 06-18-2022 16:56-0500 SaO2% (BldA) [Mass fraction] 97 % [facility] Work Phone: [facility] 06-18-2022 16:56-0500 Systolic blood pressure 158 mm[Hg] [facility] Work Phone: [facility] 12-02-2021 20:26-0400 Body height 167.64 cm [facility] Work Phone: [facility] 12-02-2021 20:26-0400 Body temperature 98.2 [degF] [facility] Work Phone: [facility] 12-02-2021 20:26-0400 Body weight 144.24 kg [facility] Work Phone: [facility] 12-02-2021 20:26-0400 Diastolic blood pressure 89 mm[Hg] [facility] Work Phone: [facility] 12-02-2021 20:26-0400 Heart rate 104 /min [facility] Work Phone: [facility] 12-02-2021 20:26-0400 Respiratory rate 20 /min [facility] [employer] Work Phone: [facility] 12-02-2021 20:26-0400 SaO2% (BldA) [Mass fraction] 96 % [facility] [employer] Work Phone: [facility] 12-02-2021 20:26-0400 Systolic blood pressure 156 mm[Hg] [facility] [employer] Work Phone: [facility] 06-19-2020 11:10-0500 BMI (Body Mass Index) 46.65 kg/m2 Bayron Bibiana EJ-ASVHK-Ckpfgm 310 [facility] Work Phone: 06-19-2020 11:10-0500 Body weight 131.09 kg Bayron Bibiana FG-CKDUO-Aawanm 310 [facility] Work Phone: 06-19-2020 11:10-0500 BSA (Body Surface Area) 2.34 m2 Bayron Bibiana TS-NOUDE-Fhsdsm 310 [facility] Work Phone: 06-19-2020 11:10-0500 Height 167.64 cm Bayron Bibiana PV-XDCVP-Htttxj 310 IV[facility] Work Phone: 06-19-2020 11:10-0500 1 1 Bayron Bibiana FJ-VENAU-Tmteqo 310 IVF Work Phone: Comment on above: 06-19-2020 11:10-0500 0 1 Bayron Bibiana KL-FJKEA-Xcmpbv 310 IV[facility] Work Phone: Comment on above: Para Pain Scale Encounters Encounter Date Encounter Type Care Provider Facility Start: 11-25-2023 End: 11-25-2023 ambulatory MELISSA AMBER Not Available Start: 10-30-2023 End: 10-30-2023 ambulatory MELISSA AMBER Not Available Start: 10-09-2023 End: 10-09-2023 ambulatory LATONIA GREENE Facility:[facility] Start: 10-06-2023 End: 10-06-2023 Emergency department patient visit Services [facility] Work Phone: [facility] Work Phone: Start: 09-17-2023 End: 09-17-2023 ambulatory ANNA ORTIZ Facility:[facility] Start: 09-17-2023 End: 09-17-[address] Nutrition therapy Anna Ortiz RD Nutrition Therapy Comment on above: Obesity, Class III, BMI 40-49.9 (morbid obesity) (HCC) (Primary Dx); Dietary counseling Start: 09-17-2023 End: 09-17-2023 Telemedicine consultation with patient Anna Ortiz RD [facility] Start: 09-15-2023 Admission to same da y surgery center Tonya Senior CRUST SORTER.[employer] Work Phone: General Surgery Comment on above: Results Start: 09-15-2023 E-mail encounter dena torres caregiver Tonya Senior APRN.[employer] Work Phone: General Surgery Start: 09-11-2023 Telephone encounter Tonya Senior APRN.[employer] Work Phone: General Surgery Comment on above: Results Start: 09-08-2023 End: 09-08-2023 ambulatory TONYA SENIOR Facility:[facility] Start: 09-05-2023 End: 09-05-2023 ambulatory TONYA SENIOR Facility:[facility] Start: 09-01-2023 End: 09-02-2023 ambulatory LATONIA GREENE Facility:[facility] Start: 09-01-2023 End: 09-01-2023 Admission to same day surgery center Latonia Greene PhD Work Phone: General Surgery BMI PSYL Comment on above: NO SHOW (Primary Dx) Start: 09-01-2023 End: 09-01-2023 Telemedicine consultation with patient Latonia Greene PhD Work Phone: General Surgery BMI PSYL Start: 08-20-2023 Admission to same da y surgery center Tonya Senior CRUST SORTER.[employer] Work Phone: General Surgery Comment on above: Welcome to Bariatric Surgery Start: 08-20-2023 E-mail encounter fro m caregiver Tonya Senior FRED.[employer] Work Phone: [place] [address] Start: 08-20-2023 End: 08-20-2023 ambulatory Tonya Senior CRUST SORTER.[employer] Work Phone: General Surgery Comment on above: Body mass index (BMI ) of 50-59.9 in adult (HCC) (Primary Dx); Angel's thyroiditis; High blood cholesterol Start: 08-20-2023 End: 08-20-2023 Telemedicine consultation with patient Tonya Senior FRED.[employer] Work Phone: [facility] Start: 08-07-2023 End: 08-07-2023 ambulatory [facility] Work Phone: [facility] Work Phone: Start: 08-07-2023 End: 08-07-2023 Patient encounter procedure [facility] Work Phone: [facility] Work Phone: Start: 06-13-2023 Follow-up encounter Nicholas [facility]on [facility] Start: 06-13-2023 Registered Recurring [facility] Work Phone: [facility] Work Phone: Start: 06-13-2023 End: 06-13-2023 ambulatory Nicholas Michaels [employer] Other Start: 06-13-2023 End: 06-13-2023 Patient encounter procedure Services [facility] [employer] Work Phone: [facility]- Start: 01-08-2023 End: 01-08-2023 ambulatory Nicholas Michaels Other [facility] [email or web address] Other Start: 01-08-2023 Nutrition therapy Nicholas Rodriguez [facility] Start: 06-18-2022 End: 06-18-2022 Emergency department patient visit [facility] Work Phone: [facility] Work Phone: Start: 06-03-2022 End: 06-03-[address] MELISSA CLARK Facility:[facility] Start: 12-02-2021 End: 12-02-2021 Emergency department patient visit Services [facility] Work Phone: [facility] Start: 07-08-2020 Patient encounter procedure Bayron Mccarty RW-CQQCE-Sriknc 310 [facility] Work Phone: Start: 07-05-2020 Patient encounter procedure Bayron Mccarty UU-JMZHA-Zktaih 310 IV[facility] Work Phone: Start: 06-19-2020 Patient encounter procedure Bayron Mccarty EH-RBXGC-Okiyaa 310 IVF Work Phone: Start: 04-14-2020 Patient encounter procedure Bayron Mccarty YK-GJYMA-Ffltqi 310 IVF Work Phone: Start: 03-28-2020 Patient encounter procedure Bayron Mccarty YP-JHZZA-Yykeqb 310 IVF Work Phone: Start: 2020 Patient encounter procedure Bayron Mccarty QH-EYXRH-Xamyzd 310 IVF Work Phone: Start: 01-24-2020 Patient encounter procedure Bayron Mccarty EQ-LXGHD-Oxenlh 310 IVF Work Phone: Start: 08-01-2017 End: 08-02-2017 Ambulatory Agustin Patton Facility:[id number] Start: 07-14-2017 End: 07-15-2017 Ambulatory Agustin Neidasriram Facility:CD:[id number] Procedures Date Procedure Procedure Detail Performing Clinician Start: 07-06-2020 Antibody screen Comment on above: Performed By: #### T +S #### [facility] [address] [place] [address] Start: 07-05-2020 IO Ultrasound, limit ed pelvic, follicle monitoring Bayron Mccarty Start: 06-26-2020 IO Ultrasound, limit ed pelvic, follicle monitoring Bayron Mccarty Start: 05-10-2020 Assay of progesterone Yonathan oslissette Mccarty Adenoid excision Bayron Chen ey SARS Antigen (LFIA) Services [facility] Work Phone: Plan of Treatment Date Care Activity Detail Author Start: 09-17-2023 End: 09-17-2023 Nutrition therapy 09/17/2023 2:30 PM EDT [facility] Nutrition Therapy [address] [place] [address] Red/Davis/0 Diet/[place] Nutrition Therapy Comment on above: Red/Davis/0 Diet/ [place] Start: 09-12-2023 End: 09-12-2023 Admission to same day surgery center 09/12/2023 3:30 PM EDT [facility] General Surgery [address] [place], [place] [id number] Joo Bradley MD [address] [place], [place] [id number] Red/Kirk/0 Diet/[place] General Surgery Comment on above: Red/Kirk/0 Diet/Anth em Start: 09-05-2023 End: 09-05-2023 ambulatory 09/05/2023 11:45 AM EDT Results Only [facility] [address] [place] [address] [place] [address] [facility] Start: 08-20-2023 End: 11-19-2023 25-hydroxyvitamin D3 [Mass/volume] in Serum or Plasma VITAMIN D 25 HYDROXY Lab Routine Body mass index (BMI) of 50-59.9 in adult (HCC) Expected: 08/20/2023, Expires: 11/19/2023 [facility] Work Phone: Comment on above: Expected: 08/20/2023 , Expires: 11/19/2023 Start: 08-20-2023 End: 11-19-2023 CBC W Auto Differential panel - Blood COMPLETE BLOOD COUNT AND DIFFERENTIAL Lab Routine Body mass index (BMI) of 50-59.9 in adult (HCC) Expected: 08/20/2023, Expires: 11/19/2023 [facility] Work Phone: Comment on above: Expected: 08/20/2023 , Expires: 11/19/2023 Start: 08-20-2023 End: 11-19-2023 Cobalamin (Vitamin B12) [Mass/volume] in Serum or Plasma VITAMIN B12 Lab Routine Body mass index (BMI) of 50-59.9 in adult ([facility]) Expected: 08/20/2023, Expires: 11/19/2023 [facility] Work Phone: Comment on above: Expected: 08/20/2023 , Expires: 11/19/2023 Start: 08-20-2023 End: 11-19-2023 Comprehensive metabolic 2000 panel - Serum or Plasma COMPREHENSIVE METABOLIC PANEL Lab Routine High blood cholesterol Body mass index (BMI) of 50-59.9 in adult ([facility]) Expected: 08/20/2023, Expires: 11/19/2023 [facility] Work Phone: Comment on above: Expected: 08/20/2023 , Expires: 11/19/2023 Start: 08-20-2023 End: 11-19-2023 Ferritin [Mass/volume] in Serum or Plasma FERRITIN Lab Routine Body mass index (BMI) of 50-59.9 in adult ([facility]) Expected: 08/20/2023, Expires: 11/19/2023 [facility] Work Phone: Comment on above: Expected: 08/20/2023 , Expires: 11/19/2023 Start: 08-20-2023 End: 11-19-2023 Folate [Mass/volume] in Serum or Plasma FOLATE, SERUM Lab Routine Body mass index (BMI) of 50-59.9 in adult ([facility]) Expected: 08/20/2023, Expires: 11/19/2023 [facility] Work Phone: Comment on above: Expected: 08/20/2023 , Expires: 11/19/2023 Start: 08-20-2023 End: 11-19-2023 Helicobacter pylori IgG Ab [Presence] in Serum or Plasma by Immunoassay H PYLORI IGG AB Lab Routine Body mass index (BMI) of 50-59.9 in adult ([facility]) Expected: 08/20/2023, Expires: 11/19/2023 [facility] Work Phone: Comment on above: Expected: 08/20/2023 , Expires: 11/19/2023 Start: 08-20-2023 End: 11-19-2023 Hemoglobin A1c in Blood HEMOGLOBIN A1C Lab Routine Body mass index (BMI) of 50-59.9 in adult ([facility]) Expected: 08/20/2023, Expires: 11/19/2023 [facility] Work Phone: Comment on above: Expected: 08/20/2023 , Expires: 11/19/2023 Start: 08-20-2023 End: 11-19-2023 Iron and Iron binding capacity panel - Serum or Plasma IRON AND TIBC Lab Routine Body mass index (BMI) of 50-59.9 in adult ([facility]) Expected: 08/20/2023, Expires: 11/19/2023 [facility] Work Phone: Comment on above: Expected: 08/20/2023 , Expires: 11/19/2023 Start: 08-20-2023 End: 11-19-2023 Lipid 1996 panel - Serum or Plasma LIPID PANEL BASIC Lab Routine High blood cholesterol Body mass index (BMI) of 50-59.9 in adult ([facility]) Expected: 08/20/2023, Expires: 11/19/2023 [facility] Work Phone: Comment on above: Expected: 08/20/2023 , Expires: 11/19/2023 Start: 08-20-2023 End: 11-19-2023 Natriuretic peptide.B prohormone N-Terminal [Mass/volume] in Serum or Plasma NT PRO BNP Lab Routine Body mass index (BMI) of 50-59.9 in adult ([facility]) Expected: 08/20/2023, Expires: 11/19/2023 [facility] Work Phone: Comment on above: Expected: 08/20/2023 , Expires: 11/19/2023 Start: 08-20-2023 End: 11-19-2023 NICOTINE & METAB, UR NICOTINE & METAB, UR Lab Routine Body mass index (BMI) of 50-59.9 in adult ([facility]) Expected: 08/20/2023, Expires: 11/19/2023 [facility] Work Phone: Comment on above: Expected: 08/20/2023 , Expires: 11/19/2023 Start: 08-20-2023 End: 11-19-2023 Thyrotropin [Units/volume] in Serum or Plasma THYROID STIMULATING HORMONE Lab Routine Angel's thyroiditis Body mass index (BMI) of 50-59.9 in adult ([facility]) Expected: 08/20/2023, Expires: 11/19/2023 [facility] Work Phone: Comment on above: Expected: 08/20/2023 , Expires: 11/19/2023 Start: 08-20-2023 End: 11-19-2023 TOXICOLOGY SCREEN, ROUTINE URINE TOXICOLOGY SCREEN, ROUTINE URINE Lab Routine Body mass index (BMI) of 50-59.9 in adult ([facility]) Expected: 08/20/2023, Expires: 11/19/2023 [facility] Work Phone: Comment on above: Expected: 08/20/2023 , Expires: 11/19/2023 Start: 08-20-2023 End: 11-19-2023 VITAMIN B1 (THIAMINE), WHOLE BLOOD VITAMIN B1 (THIAMINE), WHOLE BLOOD Lab Routine Body mass index (BMI) of 50-59.9 in adult ([facility]) Expected: 08/20/2023, Expires: 11/19/2023 [facility] Work Phone: Comment on above: Expected: 08/20/2023 , Expires: 11/19/2023 Start: 05-12-2023 Behavioral Health Screening Behavioral Health Screening [facility] Start: 01-10-2023 Covid-19 Vaccine ( season) Covid-19 Vaccine () [facility] Start: 12-02-2021 Plain chest [facility] Start: 12-02-2021 XR Chest Single view [facility] Work Phone: Start: 2021 Screening for malign ant neoplasm of cervix HPV Testing [facility] Start: 2012 Screening for malign ant neoplasm of cervix Pap Testing [facility] Start: 2010 Hepatitis B Vaccine (1 of 3 - 19+ 3-dose series) Hepatitis B Vaccine (1 of 3 - 19+ 3-dose series) [facility] Start: 2009 HIV screening HIV Screening [facility] Start: 2002 Urine microalbumin profile DTaP,Tdap,Td Vaccine (6 - Tdap) [facility] End: 08-19-2024 ECG COMPLETE ECG COMPLETE ECG Routine Body mass index (BMI) of 50-59.9 in adult ([facility]) 1 Occurrences starting 08/20/2023 until 08/19/2024 [facility] Work Phone: Comment on above: 1 Occurrences starti ng 08/20/2023 until 08/19/2024 Patient Education [facility] Work Phone: Patient referral [facility] Work Phone: End: 09-18-2024 US Abdomen RUQ US ABD RIGHT UPPER QUADRANT Radiology Routine Body mass index (BMI) of 50-59.9 in adult ([facility]) 1 Occurrences starting 08/20/2023 until 09/18/2024 [facility] Work Phone: Comment on above: 1 Occurrences starti ng 08/20/2023 until 09/18/2024 End: 09-18-2024 XR Chest PA and Lateral XR CHEST 2V FRONTAL/LAT Radiology Routine Body mass index (BMI) of 50-59.9 in adult ([facility]) 1 Occurrences starting 08/20/2023 until 09/18/2024 [facility] Work Phone: Comment on above: 1 Occurrences starti ng 08/20/2023 until 09/18/2024 [id number] [facility] Work Phone: [facility] NEGATED: Highlighted row has been ruled out! Planned Goals not documented [id number] 310 [facility] Work Phone: Payers Date Payer Category Payer Self-pay [id number] 2022 Medicaid [id number] 2022 Medicaid [id number] 1991 Unknown [id number] 3 1991 Unknown [id number] 1991 Unknown [id number] 59 1959 Medicaid [id number] Private Health Insurance [facility] [id number] Unknown [id number] Unknown Regular Insurance [id number] Unknown [employer] [id number] Unknown Regular Auto/Medical [id number] Unknown [id number] 1 Unknown [id number] 1 Social History Date Type Detail Facility Start: 12-02-2021 End: 10-06-2023 Tobacco smoking status NHIS Never smoked tobacco (finding) [facility] Start: 1990 Sex Assigned At Female F [facility] Start: 08-20-2023 Sex Assigned At N [facility] Other Start: 08-20-2023 Tobacco use and exposure Smokeless tobacco non-user [facility] Work Phone: Start: 08-20-2023 Alcohol intake Current drinke r of alcohol (finding) [facility] Start: 08-20-2023 History of Social function [facility] National Score (1-100), lower number is lower risk 86 [facility] Start: 08-20-2023 Alcohol Comment occ [facility] Start: 1990 Sex Assigned At Not on file [facility] Start: 08-26-2023 Gender identity Identifies as female gender (finding) [facility] Start: 08-26-2023 Sexual orientation Heterosexual (brina beyer) [facility] NEGATED: Highlighted row - - [id number] 310 [facility] Work Phone: Functional Status Date Assessment Result Facility NEGATED: Highlighted row Functional performance Functional status health issues are not documented Disease [id number] 310 [facility] Work Phone: Mental Status Date Assessment Result Facility NEGATED: Highlighted row Cognitive function [Interpretation] Cognitive status health issues are not documented Disease [id number] 310 [facility] Work Phone: Clinical Notes 01-08-2023 to 10-09-2023 Telephone Encounter - Meme Castrejon - 09/22/2023 9:36 AM EDTTelephone Encounter - Meme Castrejon - 09/22/2023 9:36 AM EDTTelephone Encounter - Meme Castrejon - 09/22/2023 9:36 AM EDTPatient Instructions Note Date & Type Note Facility 10-09-2023 Note HNO ID: [id number] Author: LATONIA GREENE, PhD Service: ? Author Type: Psychologist Type: Progress Notes Filed: 10/17/2023 11:09 Note Text: [facility] BARIATRIC SURGERY BEHAVIORAL HEALTH EVALUATION BMI Surgical Pathway Visit type: Psychology Visit DATE OF SERVICE: October 09, 2023 TIME OF SERVICE: 1:00 PM - 2:00 PM COST CENTER: [facility] CPT CODE: - [id number] Virtual Psych Diagnostic Eval BILLING CODE: ENDO PSYL MAIN Jerel DATE OF FIRST SERVICE THIS CYCLE: October 09, 2023 SESSION #: 1 I have communicated my name and active licensure. The patient's identity and physical location (see below) were verified at the time of this visit. Either the patient or their legal outside medical sales representative has been informed of the risks and benefits of -- and alternatives to -- treatment through a remote evaluation and consents to proceed with the evaluation remotely. This evaluation is NOT intended for forensic, disability or child custody purposes. The patient e-signed a copy of the consent form via [employer] and the [facility] insurance benefits, fees for service, emergency procedures, [...] EMR in case of emergency and/or disconnection. 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 IDENTIFYING INFORMATION: Ms. Jaleesa [...] pt has l (more content not included)... [facility] 09-22-2023 Telephone encounter Note Can not schedule patient as there is already a patient scheduled for that day and time. Please advise. Thanks Meme Castrejon [facility] 09-22-2023 Telephone encounter Note ----- Message from Anna Ortiz RD sent at 09/17/2023 3:17 PM EDT ----- Regarding: virtual follow up Please schedule for a virtual up 6/7 at 1. The patient is aware, no call needed. Thank you! Anna [facility] 09-22-2023 Miscellaneous Notes Can not [...] levels, no answer, left vm. Tonya Senior APRN.[employer] documented in this encounter [facility] 09-17-[address] - 09/17/2023 3:12 PM EDT 1. Read Nutritional Guidelines Section of Your Guide to Surgery by next session [email or web address] -/[email or web address]/ [email or web address]?la=en 2. Do not skip [...] full-liquid diet. Examples: Slim Fast Advanced Nutrition [place] Breakfast Essentials Light Start Drink mixed with [...] Bariatric Multivitamin and Calcium Citrate (total of 5951-9106 mg/day) * take calcium citrate separately from Multivitamin with iron at least 2 hours apart and 4 hours apart from additional calcium www.[email or web address].mySociety - Bariatric Choice: 4 Complete Multivitamins (chewables) per day Www.bariatricchoice.com - Bariatric Advantage: 2 Multivitamins and 3 Calcium Citrate Chewables per day * take calcium citrate separately from Multivitamin with iron at least 2 hours apart and 4 hours apart from additional calcium Www.bariatricadvantage.com Start practicing eating slowly, chewing each bite of food 20-30 x per bite, making meals last 20-30 minutes, separatign food and fluids by 30 minutes . Have all meals and snacks at the table with no distractions. Make placemat for reminders; work towards normal sleep/wake pattern Pre-op goal weight: 281 pounds Protein needs: 85 grams per day documented in this encounter [facility] 09-17-2023 Note HNO ID: [id number] Author: ANNA ORTIZ RD Service: ? Author Type: Registered Dietitian Type: Progress Notes Filed: 09/17/2023 15:19 Note Text: [facility] Nutrition Therapy: Virtual Consult - Initial Assessment I have communicated my name and active licensure. The patient?s identity and physical location were verified at the time of this visit. Either the patient or their legal outside medical sales representative has been informed of the [...] Your Guide to Surgery by next session [email or web address] -/[email or web address]/files/org/[email or web address]/ guides/[email or web address] [email or web address]?la=en 2. Do not skip [...] Examples: ? Slim Fast Advanced Nutrition ? [place] Breakfast Essentials ?Light Start? Drink mixed with [...] in the AM, 2 in the PM) www.bariatricfusion.mySociety - [employer]: 1 Bariatric Multivitamin and Calcium Citrate (total of 8301-3735 mg/day) * take calcium citrate separately from Multivitamin with iron at least 2 hours apart and 4 hours apart from additional calcium www.[email or web address].mySociety - Bariatric Choice: 4 Complete Multivitamins (chewables) per day Www.bariatricSynchrony.mySociety - Bariatric Advantage: 2 Multivitamins and 3 Calcium Citrate Chewables per day * take calcium citrate separately from Multivitamin with iron at least 2 hours apart and 4 hours apart from additional calcium Www.bariatricadDigital Allianceage.mySociety Start practicing eating slowly, chewing each bite [...] and using Phen (more content not included)... [facility] 09-17-2023 History of Presen t illness Narrative [facility] Nutrition Therapy: Virtual Consult - Initial Assessment I have communicated my name and active licensure. The patient s identity and physical location were verified at the time of this visit. Either the patient or their legal outside medical sales representative has been informed of the [...] Your Guide to Surgery by next session [email or web address] -/[email or web address]/files/org/[email or web address]/ [email or web address]?la=en 2. Do not skip [...] full-liquid diet. Examples: Slim Fast Advanced Nutrition [place] Breakfast Essentials Light Start Drink mixed with [...] AM, 2 in the PM) www.bariatricfusion.com - [employer]: 1 Bariatric Multivitamin and Calcium Citrate (total of 3061-6103 mg/day) * take calcium citrate separately from Multivitamin with iron at least 2 hours apart and 4 hours apart from additional calcium www.StudentFunder.mySociety - Bariatric Choice: 4 Complete Multivitamins (chewables) per day Www.bariatricchoice.com - Bariatric Advantage: 2 Multivitamins and 3 Calcium Citrate Chewables per day * take calcium citrate separately from Multivitamin with iron at least 2 hours apart and 4 hours apart from additional calcium Www.bariatricadvantage.mySociety Start practicing eating slowly, chewing each bite [...] suggested by 180 Initial weight: 295 lbs. [place] body weight is 155 lbs. Excess body weight is 140 lbs. Goal weight pre-op is 281 lbs. Protein needs are estimated at 85gm (1.2 - protein/kg IBW) Patient meets the National Institutes of Health guidelines for weight loss surgery and has [employer] Insurance therefore is required to complete 0 [...] rolls, sandwich, chips Snack - slim Jims chkourtney c.vookies cheese crackers Beverages - water, juice [...] TIME: 2:25 PM documented in this encounter [facility] 09-11-2023 Telephone encounter Note Attempted to call pt, re: hypothyroid and low vitamin d levels, no answer, left vm. Tonya Senior APRN.[employer]NAGEMENT [employer] [facility] 09-01-2023 Note HNO ID: [id number] Author: LATONIA GREENE, PhD Service: ? Author Type: Psychologist Type: Progress Notes Filed: 09/01/2023 13:22 Note Text: [facility] Progress Note 09/01/2023 Billing code: Jerel Patient did not attend, cancel, or reschedule this appointment. Provider left HIPAA compliant voicemail and Black Househart message with contact information to reschedule. Latonia Greene, PhD Clinical Psychologist [facility] 09-01-2023 History of Presen t illness Narrative [facility] Progress Note 09/01/2023 Billing code: Jerel Patient did not attend, cancel, or reschedule this appointment. Provider left HIPAA compliant voicemail and MyChart message with contact information to reschedule. Latonia Greene, PhD Clinical Psychologist documented in this encounter [facility] 08-20-2023 Note HNO ID: [id number] Author: TONYA SENIOR APRN.[employer] Service: ? Author Type: Nurse Practitioner Type: Progress Notes Filed: 08/20/2023 16:21 Note Text: have communicated my name and active licensure. The patient's identity and physical location were verified at the time of this visit. Either the patient or their legal outside medical sales representative has been informed of the risks and benefits of -- and alternatives to -- treatment through a remote evaluation and consents to proceed with the evaluation remotely. BMI MEDICAL CONSULT I have communicated my name and active licensure. The patient's identity and physical location were verified at the time of this visit. Either the patient or their legal outside medical sales representative has been informed of the [...] HEMOGLOBIN A1C - (more content not included)... [facility] 08-20-2023 History of Presen t illness Narrative Images from the original note were not included. have communicated my name and active licensure. The patient's identity and physical location were verified at the time of this visit. Either the patient or their legal outside medical sales representative has been informed of the risks and benefits of -- and alternatives to -- treatment through a remote evaluation and consents to proceed with the evaluation remotely. BMI MEDICAL CONSULT I have communicated my name and active licensure. The patient's identity and physical location were verified at the time of this visit. Either the patient or their legal outside medical sales representative has been informed of the [...] PANEL - LIPID PANEL BASIC Tonya Senior APRN.[employer]NA[employer] -- Recommend that she should not become [...] Obesity Medicine Visit documented in this encounter [facility] 06-13-2023 Evaluation note Encounter Date [...] 8 weeks -Handed patient self referral to [facility] bariatric surgery program -Gymdm-co-hhit A1c December 2022 5.4%-Follow up in clinic in 8 weeksThis note was created with voice recognition software. 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 Jun, Dietary surveillance and counseling (ICD-10 - [...] for a goal of 5% weight reduction. [employer] Other 08-30-2023 Evaluation note* Encounter Date Diagnosis [...] on in the past and denies side kvrlorx-Jrzay-oq-care A1c today 5.4%-Follow up in clinic in 4 weeksThis note was created with voice recognition software. 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 Dec, Dietary surveillance and counseling (ICD-10 - [...] premade protein drink for breakfast, by plain Palauan yogurt and flavor yourself with cinnamon or [...] with the patient, and documenting clinical information. [employer] Other Chief complaint+Reason for visit Narrative* Chief Complaint Obesity Reason for Visit Exercise counseling Severe obesity (BMI >= 40) [facility] Work Phone: Chirh complaint+Reason for visit Narrative* Chief Complaint Pos test, Cramping, Vaginal bleeding Reason for Visit Exercise counseling Severe obesity (BMI >= 40) [facility] Work Phone: Evaluation noteNo assessment information available [facility] Work Phone: Evaluation note* Diagnosis Onset Date Resolution Status Exercise counseling acute Severe obesity (BMI >= 40) delilah kevin [facility] Work Phone: Evcqkmpgua note* Diagnosis Body mass index (BMI) of 50-59.9 in adult (HCC)- Primary Body Mass Index 50.0-59.9, adult Angel's thyroiditis Chronic lymphocytic thyroiditis High blood cholesterol Pure hypercholesterolemia [facility] NO SHOW- Primary [facility] Diagnosis Obesity, Class III, BMI 40-49.9 (morbid obesity) ([facility])- Primary Morbid obesity Dietary counseling Dietary surveillance and counseling [facility] Diagnosis Vitamin D deficiency- Primary Unspecified vitamin D deficiency documented in this encounter [facility] general Narrative - Reported* Type Description Date Surgical History adnoidectomy Surgical History gall bladder Surgical History L Fallopian tube removed Hospitalization History See Above [employer] Other Hospital Discharge instructions Additional Instructions You may take bhep-qaf-yojtwqy cough and cold medication as needed You may take ctyd-omt-xelknfw Tylenol and/or ibuprofen as needed Increase oral fluids Follow-up with family doctor as needed Return to the ER for any acute difficulty breathing high fever vomiting or any [facility] Work Phone: Hospital Discharge instructions Additional Instructions Nothing into vagina until seen by ZIPPER SEWING MACHINE OPERATOR May take Tylenol for discomfort Increase oral fluids Follow-up with ZIPPER SEWING MACHINE OPERATOR Return to the ER for heavy bleeding greater than a pad an hour feeling dizzy lightheaded or any other [facility] Work Phone: Reason for referral (narrative)* Diagnostic Procedure Only (Routine) - Pending Review Specialty Diagnoses / Procedures Referred By Contac t Referred To Contact [facility] IM[facility] Diagnoses Body mass index (BMI) of 50-59.9 in adult (HCC) Procedures US ABD RIGHT UPPER QUADRANT US ABDOMINAL REAL TIME W/IMAGE LIMITED Tonya Senior APRN.[employer]NAGEMENT INTERNS[employer] [id number] [id number] [facility] Referral ID Status Reason Start Date Expiration Date Visits Requested Visits Authorized [id number] Pending Review Auto-Generat ed Referral 08/20/2023 09/18/2024 1 1 * Outpatient Procedure (Routine) - Pending Review Specialty Diagnoses / Procedures Referred By Contac t Referred To [facility] Diagnoses Body mass index (BMI) of 50-59.9 in adult (HCC) Procedures ECG COMPLETE ECG ROUTINE ECG W/LEAST 12 LDS W/I&R Tonya Senior APRN.[employer]NAGEMENT INTERNSHIP [address] [place] [address] [facility] [place] [address] [place] [address] Referral ID Status Reason Start Date Expiration Date Visits Requested Visits Authorized [id number] Pending Review Auto-Generat ed Referral 08/20/2023 08/19/2024 1 1 [facility] Summary Purpose Family History No [...] section and content) DATE CREATED AUTHOR 10/31/2017 [facility] DATE CREATED AUTHOR AUTHOR'S ORGANIZ ATION 04/23/2020 [facility] DATE CREATED AUTHOR AUTHOR'S ORGANIZ ATION 08/08/2020 [facility] DATE CREATED AUTHOR AUTHOR'S ORGANIZ ATION 08/22/[address] [facility] ical Center DATE CREATED AUTHOR AUTHOR'S ORGANIZ ATION 06/11/2022 [facility] DATE CREATED AUTHOR AUTHOR'S ORGANIZ ATION 09/06/2023 [facility] DATE CREATED AUTHOR AUTHOR'S ORGANIZ ATION 10/03/2023 [facility] DATE CREATED AUTHOR AUTHOR'S ORGANIZ ATION 10/14/2023 [facility] DATE CREATED AUTHOR AUTHOR'S ORGANIZ ATION 10/18/2023 [facility] DATE CREATED AUTHOR AUTHOR'S ORGANIZ ATION 11/29/2023 [facility] EPIC Care Teams (unrecognized sec tion and content) Team Status: Inactive Member Role Status Dates Services [facility] Primary Care Provider Active Ck To PA-C Emergency Provider Active Team Status: Active Member Role Status Dates [facility] Primary Care Provider Active Team Status: Inactive Member Role Status Dates [facility] Primary Care Provider Active Marychuy Kyle AUTOMOTIVE ALIGNMENT SPECIALIST-BC Emergency Provider Active Team Status: Inactive Member Role Status Nicholas Michaels , DO Attending Provider Active St art: June 13, 2023 End: June 13, 2023 Team Status: Active Member Role Status Dates Services [facility] Primary Care Provider Active Start: June 13, 2023 Nicholas Michaels , DO Attending Provider Active St art: June 13, 2023 Team Status: Inactive Member Role Status [facility] Primary Care Provider Active Start: August 07, 2023 End: August 07, 2023 Nicholas Michaels , DO Attending Provider Active St art: August 07, 2023 End: August 07, 2023 Team Status: Inactive Member Role Status [facility] Primary Care Provider Active Start: October 06, 2023 End: October 06, 2023 Marychuy Kyle [facility]- Emergency Provider Active Start: October 06, 2023 [...] or prosecute any alcohol or drug abuse patient.[facility] Center[facility] the event this information is protected by the Federal Confidentiality of Alcohol and Drug Abuse Patient Records regulations: The Federal rules restrict any use of the information to criminally investigate or prosecute any alcohol or drug abuse patient.[facility] Center[facility] the event this information is protected by the Federal Confidentiality of Alcohol and Drug Abuse Patient Records regulations: The Federal rules restrict any use of the information to criminally investigate or prosecute any alcohol or drug abuse patient.[facility] the event this information is protected by the Federal Confidentiality of Alcohol and Drug Abuse Patient Records regulations: The Federal rules restrict any use of the information to criminally investigate or prosecute any alcohol or drug abuse patient.[facility] the event this information is protected by the Federal Confidentiality of Alcohol and Drug Abuse Patient Records regulations: The Federal rules restrict any use of the information to criminally investigate or prosecute any alcohol or drug abuse patient.[facility] Center[facility] the event this information is protected by the Federal Confidentiality of Alcohol and Drug Abuse Patient Records regulations: The Federal rules restrict any use of the information to criminally investigate or prosecute any alcohol or drug abuse patient.[facility] FOR RECORDS PERTAINING TO PATIENTS [...] BE BASED ON THE PRIMARY CLINICAL RECORDS. [facility] [employer] [facility]. provides no warranty or guarantee of the accuracy or completeness of information in this document.
== END 2023-12-23 18:34 | disposition home or self-care (01) ==
LOC: LAB 18:33
PROVIDERS: Visit Provider Physician Assistant
DX: Z01.419 Encounter for gynecological examination (general) (routine) without abnormal findings (principal)
CPT/HCPCS: 87624; 88175

== ENCOUNTER 2024-01-20 12:55 | Outpatient (OUT) | payer MEDICAID, SELFPAY ==
--- NOTE | 2024-01-20 12:58 | US_ITS ---
[address] [address] Patient Name: FABRIZIO PAINTING MRN: [id number] date: 1990 Sex: F Assigned Patient Location: [facility] Current Patient Location: [facility] Accession/Order Number: [id number] Exam Date: 01/20/2024 12:59 Report Date: 01/20/2024 16:00 At the request of: HENRY URBAN Procedure: US OB cervical length EXAMINATION: US OB anatomy, US OB cervical length HISTORY: ANATOMY COMPARISON: No relevant comparison available. TECHNIQUE: Transabdominal sonographic examination was performed for obstetrical and evaluation. FINDINGS: Number: 1 Heart Rate: 150 bpm H.B. /min Amniotic Fluid Volume: Subjectively normal Placental Location: ANTER/FUND with lower margin 9.6 cm from os. Cervix Length: 3.91 cm , closed. ANATOMY: Normal Structures -cerebellum, choroid plexus, cisterna magna, lateral cerebral ventricles, orbits, midline falx, hard palate, four-chamber heart, RVOT, LVOT, stomach, kidneys, bladder, umbilical cord insertion into abdomen, three-vessel cord, cervical spine, thoracic spine, lumbar spine, sacral spine, right upper extremity, left upper extremity, right lower extremity, left lower extremity. SUBOPTIMALLY SEEN: None ABNORMALITIES: None BIOMETRY: BPD: 4.36 cm; 19 weeks 1 day; 11 % HC: 17.47 cm; 20 weeks 0 days; 28.50 % AC: 14.74 cm; 20 weeks 0 days; 35.10 % FL: 3.46 cm; 20 weeks 6 days; 64 % EFW:303.77 g; 48.20 % FL/AC: 23.47 FL/BPD: 79.36 HC/AC: 1.19 GESTATIONAL AGE: Age by EDC: 20 weeks 2 days Age by current US: 20 weeks 0 days DARLENE by current US: 2024-06-08 DARLENE by EDC: 2024-06-06 US/US OB cervical length IMPRESSION: 1. Single live intrauterine with growth detailed above. Electronically authenticated by: FAM PHELPS Date: 01/20/2024 16:00
--- NOTE | 2024-01-20 12:58 | US_ITS ---
[address] [address] Patient Name: FABRIZIO PAINTING MRN: [id number] date: 1990 Sex: F Assigned Patient Location: [facility] Current Patient Location: [facility] Accession/Order Number: [id number] Exam Date: 01/20/2024 12:59 Report Date: 01/20/2024 16:00 At the request of: HENRY URBAN Procedure: US OB anatomy EXAMINATION: US OB anatomy, US OB cervical length HISTORY: ANATOMY COMPARISON: No relevant comparison available. TECHNIQUE: Transabdominal sonographic examination was performed for obstetrical and evaluation. FINDINGS: Number: 1 Heart Rate: 150 bpm H.B. /min Amniotic Fluid Volume: Subjectively normal Placental Location: ANTER/FUND with lower margin 9.6 cm from os. Cervix Length: 3.91 cm , closed. ANATOMY: Normal Structures -cerebellum, choroid plexus, cisterna magna, lateral cerebral ventricles, orbits, midline falx, hard palate, four-chamber heart, RVOT, LVOT, stomach, kidneys, bladder, umbilical cord insertion into abdomen, three-vessel cord, cervical spine, thoracic spine, lumbar spine, sacral spine, right upper extremity, left upper extremity, right lower extremity, left lower extremity. SUBOPTIMALLY SEEN: None ABNORMALITIES: None BIOMETRY: BPD: 4.36 cm; 19 weeks 1 day; 11 % HC: 17.47 cm; 20 weeks 0 days; 28.50 % AC: 14.74 cm; 20 weeks 0 days; 35.10 % FL: 3.46 cm; 20 weeks 6 days; 64 % EFW:303.77 g; 48.20 % FL/AC: 23.47 FL/BPD: 79.36 HC/AC: 1.19 GESTATIONAL AGE: Age by EDC: 20 weeks 2 days Age by current US: 20 weeks 0 days DARLENE by current US: 2024-06-08 DARLENE by EDC: 2024-06-06 US/US OB anatomy IMPRESSION: 1. Single live intrauterine with growth detailed above. Electronically authenticated by: FAM PHELPS Date: 01/20/2024 16:00
== END 2024-01-20 12:56 | disposition home or self-care (01) ==
LOC: NOMS 12:56
PROVIDERS: Visit Provider Physician Assistant
DX: Z36.89 Encounter for other specified antenatal screening (principal); Z3A.20 20 weeks gestation of pregnancy
CPT/HCPCS: 76805; 76817

== ENCOUNTER 2024-01-26 15:06 | Outpatient (OUT) | payer MEDICAID, SELFPAY ==
[2024-01-26 16:03] LABS: Thyroid Stimulating Hormone 2.645 uIU/mL (0.358-3.740)
== END 2024-01-26 15:07 | disposition home or self-care (01) ==
LOC: LAB 15:07
PROVIDERS: Visit Provider Obstetrics & Gynecology
DX: R79.89 Other specified abnormal findings of blood chemistry (principal)
CPT/HCPCS: 36415; 84443

== ENCOUNTER 2024-03-19 12:59 | Outpatient (OUT) | payer MEDICAID, SELFPAY ==
--- OUTSIDE RECORDS SUMMARY | 2024-03-19 13:09 | XMS_ITS | CCD ---
Author Organization 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 Name Role Phone Agustin Patton Unavailable Unavailable Agustin Patton Unavailable Unavailable Bayron Mccarty Unavailable Unavailable Unavailable Unavailable Unavailable Unavailable Unavailable Unavailable [facility], Services Primary Care Provider DEMETRIUS To Emergency Provider DR TACHO MENENDEZ Attending Unavailable DR TACHO MENENDEZ Consulting Unavailable DR TACHO MENENDEZ Admitting Unavailable [facility] Primary Care Provider [phone] [facility] Marychuy E Emergency Provider Nicholas Michaels Unavailable [facility] Services Primary Care Provider DO Nicholas Michaels Attending Provider [phone] Unavailable Primary Care Provider Unavailabl e Unavailable Primary Care Provider Unavailabl e LATONIA GREENE Attending Unavailable TONYA SENIOR Attending Unavailable [facility] Primary Care Provider [facility] Marychuy E Emergency Provider [phone] LATONIA GREENE Referring Unavailable LATONIA GREENE Attending Unavailable ANNA ORTIZ Attending Unavailable TONYA SENIOR Referring Unavailable TONYA SENIOR Referring Unavailable TACHO MENENDEZ Referring Unavailable MOMAKEDA GROVER Attending Unavailable TACHO MENENDEZ Referring Unavailable TACHO MENENDEZ Referring Unavailable TACHO MENENDEZ Attending Unavailable MENA ANN Attending Unavailable TACHO MENENDEZ Attending Unavailable MENA ANN Attending Unavailable Unavailable Primary Care Provider Unavailabl e [facility] Primary Care Provider DEMETRIUS To Emergency Provider Unavailable Primary Care Provider UnavailDO Devika Nicholas Emergency Provider [phone] Ck To Attending Unavailable Ck To Admitting Unavailable [facility] Primary Care Unavaila Marychuy Rey Attending Unavailable Marychuy Kyle Admitting Unavailable [facility] Services Primary Care Unavaila Nicholas Willams Attending Unavailable Nicholas Michaels Admitting Unavailable [facility] Devika Hillman Attending Unavailable Devika De La Garza Admitting Unavailable Medications Current Medications Medication Drug Class(es) Dates Sig (Normalized) Sig (Original) aspirin 81 mg chewable tablet (1 source) Platelet Aggregation Inhibitor, Nonsteroidal Anti-inflammatory Drug Start: 01-19-2024 aspirin 81 mg chewable tablet Indications: History of pre-eclampsia in prior , currently Chew 1 tablet (81 mg total) and swallow in the morning. 90 tablet 3 01/19/2024 Active cholecalciferol 1.25 mg oral capsule (4 sources) [...] Refills: 0 DO Start : 13-Mar-2020 Active dextromethorphan hydrobromide 3 mg/ml / promethazine hydrochloride 1.25 mg/ml oral solution (2 sources) Phenothiazine, Uncompetitive U-kxzjsv-E-aspartate Receptor Antagonist, Sigma-1 Agonist Start: 02-26-2024 take 1 mL by mouth every six hours Promethazine-Dm Active 5 ML PO Q6H February 26, 2024 12:00am fluticasone propionate 0.05 mg/actuat metered dose nasal spray (2 sources) Corticosteroid Start: 02-26-2024 take 1 spray(s) nasal route twice daily Fluticasone Propionate (Flonase Allergy Relief) 50 mcg/actuation spray,suspension Active 1 SPRAY INTRANASAL Twice daily February 26, 2024 12:00am administer into each nostril levothyroxine sodium 0.05 mg oral tablet (11 sources) l-Thyroxine Start: 02-16-2024 take 0.5 tablet by mouth once daily before mealtime levothyroxine (Synthroid, Levoxyl) 50 MCG tablet Indications: Elevated TSH TAKE 1/2 TABLET BY MOUTH EVERY MORNING BEFORE A MEAL 45 tablet 02/16/2024 Active Start: 05-11-2019 End: 07-28-2020 take 50 ug by mouth once daily Levothyroxine Discontin ued 50 MCG PO Daily May 11, 2019 1:00am July 28, 2020 7:27pm magnesium oxide 400 mg oral tablet (4 sources) Start: 10-30-2023 End: 10-29-2024 take 1 tablet by mouth once daily magnesium oxide (Mag-Ox) 400 MG tablet Indications: headache in first trimester Take 1 tablet (400 mg) by mouth Daily 30 tablet 11 10/30/2023 10/29/2024 Active [place] (No Known Home Meds) (3 sources) Start: 10-06-2023 [place] (No Kn own Home Meds) Active October 06, 2023 12:00am Start: 06-18-2022 [place] (No Kn own Home Meds) Active June 18, 2022 12:00am ondansetron 4 mg disintegrating oral tablet (1 source) Serotonin-3 Receptor Antagonist take 1 tablet by mouth every eight hours as needed for nausea and vomiting ondansetron ODT (ZOFRAN ODT) 4 mg disintegrating tablet Dissolve 1 tablet (4 mg total) on tongue every 8 (eight) hours as needed for nausea or vomiting. Active PNV 19/iron ps,heme/folic/dha ( MV & MIN ORAL) (1 source) take 1 tablet by mouth once in the morning PNV 19/iron ps,heme/folic/dha ( MV & MIN ORAL) Take 1 tablet by mouth in the morning. Active MV & Min w/FA-DHA ( Gummies) 0.18-25 MG chewable tablet (3 sources) Start: 11-26-19 End: 11-26-19 25 MV & Min w/FA-DHA ( Gummies) 0.18-25 MG chewable tablet Indications: Missed menses Chew 25 mg Daily 30 tablet 11 11/26/2023 11/25/2024 Active Completed/Discontinued Medications Medication Drug Class(es) Dates Sig (Normalized) Sig (Original) acetaminophen 325 mg / oxyCODONE hydrochloride 5 mg oral tablet (7 sources) Opioid Agonist Start: 0 End: 1 take 1 tablet by mouth every four to six hours Oxycodone-Acetamino phen (Percocet) 5-325 mg tablet Discontinued 1 - 2 TAB PO EVERY 4-6 HOURS 14 July 20, 2019 July 28, 2020 7:27pm amoxicillin 500 mg oral tablet (7 sources) Penicillin-class Antibacterial Start: 2 End: 2 take 500 mg by mouth twice daily Amoxicillin Discontinued 500 MG PO Twice daily 28 02July 08, 2021 1:00am December 02, 2021 8:17pm amoxicillin 875 mg / clavulanate 125 mg oral tablet (7 sources) Penicillin-class Antibacterial Start: 2 End: 3 take 1 tablet by mouth twice daily Amoxicillin-Pot Clavulanate Discontinued 1 TAB PO Twice daily December 02, 2021 12:00am June 18, 2022 5:53pm brompheniramine maleate 0.4 mg/ml / dextromethorphan hydrobromide 2 mg/ml / pseudoephedrine hydrochloride 6 mg/ml oral solution (7 sources) alpha-Adrenergic Agonist, Uncompetitive Z-ktnhej-S-asparta te Receptor Antagonist, Sigma-1 Agonist Start: 2 [...] Syringe cyclobenzaprine hydrochloride 10 mg oral tablet (7 sources) Muscle Relaxant Start: 7 End: 7 take 10 mg by mouth three times daily Cyclobenzaprine Discontinued 10 MG PO Three times daily 9 May 02, 2017 1:00am May 05, 2017 1:03am ibuprofen 800 mg oral tablet (20 sources) Nonsteroidal Anti-inflammatory Drug Start: 2 End: [...] 1:02am labetalol hydrochloride 100 mg oral tablet (7 sources) beta-Adrenergic Foster Start: 12-31-2020 End: 07-04-2021 [...] Bayron Mccarty MD Start : 19-Jun-2020 Active omeprazole 20 mg delayed release oral tablet (7 sources) Proton Pump Inhibitor Start: 05-11-2019 End: 05-11-2019 take 1 tablet by mouth once daily Omeprazole Magnesium (Prilosec Otc) 20 mg Tablet,Delayed Release (Dr/Ec) Discontinued 20 MG PO Daily May 11, 2019 1:00am May 11, 2019 2:27am phentermine hydrochloride 37.5 mg oral tablet (20 sources) Sympathomimetic Amine Anorectic Start: 08-07-2023 End: 10-06-2023 take 37.5 mg by mouth once daily Phentermine Discontinued 37.5 MG PO Daily August 07, 2023 12:00am October 06, 2023 5:42pm Start: 06-13-2023 take 1 tablet by vidhya once daily before breakfast Phentermine HCl 37.5 MG 1 tablet before breakfast Orally Once a day for 30 days Jun, Active Start: 01-08-2023 take 1 tablet by vidhya once daily before breakfast Phentermine HCl 37.5 MG 1 tablet before breakfast Orally Once a day for 30 days Dec, Active Start: 06-25-2019 End: 07-28-2020 take 1 tablet by mouth once daily Phentermine (Adipex-P) 37.5 mg Tablet Discontinued 37.5 MG PO Daily 0 June 26, 2019 12:58pm July 28, 2020 7:27pm Seyhscau-Njg-Nc-Fa () 1 mg Tablet (7 sources) Start: 12-31-2020 End: 07-04-2021 take 1 tablet by mouth once Wwmiceey-Nvg-Ho-Fa () 1 mg Tablet Discontinued TAB PO December 30, 2020 11:00pm July 04, 2021 9:48am Start: 12-31-2020 End: 07-04-2021 take 1 tablet by mouth once Zybeylgh-Qci-Uw-F a () 1 mg Tablet Discontinued TAB PO December 31, 2020 12:00am July 04, 2021 10:48am progesterone 100 mg oral capsule (9 sources) Progesterone Start: 07-28-2020 End: 12-31-2020 Progesterone Micronized Discontinued 100 MG VAGINAL Twice daily July 28, 2020 12:00am December 31, 2020 9:55am Start: 06-19-2020 [facility] Pro[facility] Micronized 100 MG Oral Capsule TAKE 1 CAPSULE Twice daily insert capsules vaginally Quantity: 30 Refills: 3 Bayron Mccarty MD Start : 19-Jun-2020 Active sennosides, shelter 8.6 mg oral tablet (1 source) take 4 tablets by mo ut every twenty-four hours Senna 8.6 MG 4 tablets as needed Orally Once a day Not-Taking/PRN Problems Active Problems Problem Classification Problem Date Documented Date Episodic/Chronic Abdominal pain (20 sources) Nonspecific abdominal pain; Translations: [Unspecified abdominal pain] 08-20-2020 Episodic Acute and chronic tonsillitis (7 sources) Acute tonsillitis; Translations: [Acute tonsillitis, unspecified] 07-08-2021 Episodic Acute bronchitis (7 sources) Acute bacterial bronchitis; Translations: [Acute bronchitis due to other specified organisms] 12-02-2021 Episodic Anxiety disorders (1 source) Anxiety disorder, unspecified; Translations: [Anxiety disorder, unspecified type] Onset: 10-09-2023 Chronic Biliary tract disease (7 sources) Biliary calculus; Translations: [Calculus of gallbladder and bile duct without cholecystitis without obstruction] 06-25-2019 Episodic Disorders of lipid metabolism (17 sources) Dyslipidemia; Translations: [Hyperlipidemia, unspecified] Onset: 08-20-2023 Chronic Female infertility (3 sources) Female infertility; Translations: [Female infertility] Chronic Gastritis and duodenitis (7 sources) Gastritis; Translations: [Gastritis, unspecified, without bleeding] 05-11-2019 Episodic Hypertension complicating ; childbirth and the puerperium (2 sources) Gestational [-induced] hypertension without significant proteinuria, unspecified trimester; Translations: [Gestational (-induced) hypertension without significant proteinuria, unspecified trimester] Onset: 01-19-2024 Episodic Immunizations and screening for infectious disease (1 source) Encounter for screening for human papillomavirus (HPV); Translations: [ENC SCREENING HUMAN PAPILLOMAVIRUS] Onset: 06-05-2022 Episodic Menstrual disorders (3 sources) Irregular periods; Translations: [Irregular menses] Chronic Miscellaneous mental health disorders (1 source) Psychological and behavioral factors associated with disorders or diseases classified elsewhere; Translations: [Psychological factors affecting medical condition] Onset: 10-09-2023 Chronic Nausea and vomiting (7 sources) Nausea and vomiting; Translations: [Nausea with vomiting, unspecified] 06-25-2019 Episodic Nonspecific chest pain (7 sources) Atypical chest pain; Translations: [Other chest pain] 06-03-2019 Episodic Nutritional deficiencies (1 source) Vitamin D deficiency; Translations: [Vitamin D deficiency, unspecified] 09-23-2023 Chronic Other complications of (2 sources) Obesity complicating , unspecified trimester; Translations: [Obesity complicating , unspecified trimester] Onset: 01-19-2024 Chronic Other complications of (1 source) Obesity complicating , second trimester; Translations: [Obesity complicating , second trimester] Onset: 01-19-2024 Chronic Other complications of (3 sources) Maternal obesity complicating , childbirth and the puerperium, antepartum; Translations: [Obesity complicating , second trimester] Onset: 01-19-2024 03-01-2024 Chronic Other complications of (7 sources) Abdominal pain in ; Translations: [Other specified related conditions, unspecified trimester] 07-28-2020 Episodic Other complications of (7 sources) Complication of , childbirth and/or the puerperium; Translations: [Other specified related conditions, unspecified trimester] 07-31-2020 Episodic Other complications of (2 sources) Supervision of other high risk pregnancies, unspecified trimester; Translations: [Supervision of other high risk pregnancies, unspecified trimester] Onset: 01-19-2024 Episodic Other complications of (2 sources) Supervision of high risk , unspecified, unspecified trimester; Translations: [Supervision of high risk , unspecified, unspecified trimester] Onset: 01-19-2024 Episodic Other complications of (2 sources) Supervision of with other poor reproductive or obstetric history, unspecified trimester; Translations: [Supervision of with other poor reproductive or obstetric history, unspecified trimester] Onset: 01-19-2024 Episodic Other complications of (1 source) Endocrine, nutritional and metabolic diseases complicating , second trimester; Translations: [Endocrine, nutritional and metabolic diseases complicating , second trimester] Onset: 01-19-2024 Episodic Other complications of (2 sources) size does not accord with dates; Translations: [Uterine size-date discrepancy, unspecified trimester] 02-23-2024 Episodic Other complications of (3 sources) History of pre-eclampsia; Translations: [Supervision of with other poor reproductive or obstetric history, unspecified trimester] Onset: 01-19-2024 03-01-2024 Episodic Other endocrine disorders (2 sources) Polycystic ovarian syndrome; Translations: [PCOS (polycystic ovarian syndrome)] Chronic Other female genital disorders (4 sources) H/O: premature delivery; Translations: [Personal history of pre-term labor] 02-23-2024 Episodic Other non-traumatic joint disorders (6 sources) Shoulder [...] Chronic Other nutritional; endocrine; and metabolic disorders (14 sources) Body mass index 40+ - severely obese; Translations: [Morbid (severe) obesity due to excess calories] Onset: 08-20-2023 08-06-2023 Chronic Other nutritional; endocrine; and metabolic disorders (1 source) Body mass index (BMI) 50.0-59.9, adult; Translations: [Body mass index (BMI) of 50-59.9 in adult (HCC)] Onset: 08-20-2023 Chronic Other nutritional; endocrine; and metabolic disorders (1 source) Body mass index (BMI) 45.0-49.9, adult; Translations: [Body mass index (BMI) 45.0-49.9, adult] Onset: 01-19-2024 Chronic Other and delivery including normal (9 sources) Intrauterine ; Translations: [Encounter for supervision of normal , unspecified, unspecified trimester] 10-21-2020 Episodic Other screening for suspected conditions (not mental disorders or infectious disease) (9 sources) Encounter for screening for malignant neoplasm of cervix; Translations: [Encounter for other specified screening] Onset: 06-03-2022 Episodic Other upper respiratory infections (2 sources) Sinusitis; Translations: [Chronic sinusitis, unspecified] 02-26-2024 Chronic Other upper respiratory infections (14 sources) Pharyngitis; Translations: [Acute pharyngitis, unspecified] Onset: 02-26-2024 07-04-2021 Episodic Residual codes; unclassified (1 source) 21 weeks gestation of ; Translations: [21 weeks gestation of ] Onset: 01-19-2024 Episodic Residual codes; unclassified (2 sources) Gestation period, 25 weeks; Translations: [25 weeks gestation of ] 02-23-2024 Episodic Sprains and strains (7 sources) Low back strain; Translations: [Strain of muscle, fascia and tendon of lower back, initial encounter] 05-02-2017 Episodic Thyroid disorders (10 sources) Angel thyroiditis; 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 08-20-2023 Chronic Unclassified (1 source) NO SHOW 09-01-2023 Unclassified (1 source) Hashimotos's Disease Onset: 01-19-2024 Unclassified (1 source) Cough, unspecified; Translations: [Cough, unspecified] Onset: 03-05-2024 Viral infection (1 source) Acute viral disease; Translations: [Viral infection, unspecified] 03-05-2024 Episodic Past or Other Problems Problem Classification Problem Date Documented Da te Episodic/Chronic Administrative/social admission (14 sources) Dietary counseling and surveillance; Translations: [Other specified counseling] Onset: 06-13-2023 Episodic Hemorrhage during ; abruptio placenta; placenta previa (12 sources) Bleeding from female genital tract during ; Translations: [Antepartum hemorrhage, unspecified, unspecified trimester] Onset: 10-06-2023 08-27-2020 Episodic Unclassified (15 sources) Patient encounter status; Translations: [Infertility counseling] 03-01-2024 Unclassified (3 sources) History finding; Translations: [No pertinent past medical history] NEGATED: Highlighted row has not occurred!Residual codes; unclassified (18 sources) Disease Episodic Results Test Name Value Interpretation Reference Range Facility BioFire Not Detectedon 03-05 BioFire Not Detected Not detected Normal Not Detecte T he [facility] Comment on above: Result Comment: This is a duplicate RP2.1 COVID (PCR) result to be used for statistical tracking purpose only. PERFORMED BY: [place] [address] PATHOLOGIST PELLETIZER TENDER LION STANLEY M.D. Performed By: #### B IOFIRECOVNOTDE, QS, RESP PANEL UPP. #### [address] COVID-19 Detected/Not Detect edOrdered By: Devika De La Garza on 03-05-2024 SARS-CoV-2 (COVID-19) RNA YANET+non-probe Ql (Nph) Not detected Not Detecte [facility] Comment on above: This is a duplicate RP2.1 COVID (PCR) result to be used for statistical tracking purpose only. ECG 12 lead ECGon 03-05-2024 ECG 12 lead ECG [facility] [place] [address] [place] [address] Electrocardiograph Report Signed Patient: Jaleesa Arrieta MR#: [id number] [birth year] : 1990 Acct:[id number] Age/Sex: 33 / F ADM Date: 03/05/24 Loc: ER Room: Type: [facility] ER Attending Dr: Ordering Provider: Devika De La Garza DO Date of Service: 03/05/24 ECG/ECG 12 lead ECG: Shortness of Breath/Dyspnea Copies to: Test Reason : Blood Pressure : 138/70 mmHG Vent. Rate : 116 BPM Atrial Rate : 116 BPM P-R Int : 138 ms QRS Dur : 76 ms QT Int : 332 ms P-R-T Axes : 19 20 -12 degrees QTcB Int : 461 ms Sinus tachycardia Possible Inferior infarct , age undetermined Abnormal ECG When compared with ECG of 03-Jun-2019 14:19, Vent. rate has increased by 40 bpm Borderline criteria for Inferior infarct are now present Confirmed by DEVIKA DE LA GARZA DO ([id number]) on 03/06/2024 1:44:25 AM Referred By: Electronically Signed By: DEVIKA DE LA GARZA DO Transcribed By: MUS Signed By Devika De La Garza DO 03/06 0144 Normal [facility] Quick Strepon 03-05-2024 Quick Strep Streptococcus pyogen es Ag [Presence] in Throat by Rapid immunoassay Negative for Group A Strep Antigen Note 1 NOTE 2 Results are those of a screening test. NOTE 3 If clinically indicated please order a culture. NOTE 4 NOTE 5 Reference range = Negative PERFORMED BY: [place] [address] PATHOLOGIST PELLETIZER TENDER LION STANLEY M.D. Normal [facility] Comment on above: Performed By: #### B IOFIRECOVNOTDE, QS, RESP PANEL UPP. #### [facility] [address] [place] [id number] [facility] Respiratory (Upper) Panel, P CRon 03-05-2024 Respiratory (Upper) Panel, PCR Adenovirus Not detected Bordetella parapertussis Not detected Chlamydia pneumoniae Not detected Coronavirus 229E Not detected Coronavirus HKU1 Not detected Coronavirus NL63 Not detected Coronavirus OC43 Not detected Influenza A Not detected Influenza B Not detected Human Metapneumovirus Not detected Mycoplasma pneumoniae Not detected Parainfluenza Virus 1 Not detected Parainfluenza Virus 2 Not detected Parainfluenza Virus 3 Not detected Parainfluenza Virus 4 Not detected Bordetella pertussis-ptxP Not detected Human Rhino/Enterovirus Not detected Resp. Syncytial Virus Not detected COVID-19 Detected/Not Detected Not detected Blank Space ------ FLUA TEST INCLUDES Influenza A tests for the following clinically FLUA TEST INCLUDES significant subtypes: FLUA TEST INCLUDES - Influenza A FLUA TEST INCLUDES - Influenza A H1 FLUA TEST INCLUDES - Influenza A H1 2009 FLUA TEST INCLUDES - Influenza A H3 Blank Space ------ PERFORMED BY: [facility] [address] [place] [address] PATHOLOGIST PELLETIZER TENDER LION STANLEY M.D. Normal [facility] Comment on above: Performed By: #### B IOFIRECOVNOTDE, QS, RESP PANEL UPP. #### [facility] [address] [id number] [facility] Respiratory pathogens DNA an d RNA panel - Nasopharynx by YANET with non-probe detectionOrdered By: Devika De La Garza on 03-05-2024 Respiratory pathogens DNA and RNA panel YANET+non-probe (Nph) [facility] Streptococcus pyogenes antig en detectionOrdered By: Devika De La Garza on 03-05-2024 S. pyogenes Ag Ql (Unsp spec) [facility] XR chest 1V portableon 03-05 XR chest 1V portable [facility] [place] [address] XRay Report Signed Patient: Jaleesa Arrieta MR#: [id number] [birth year] : 1990 Acct:[id number] Age/Sex: 33 / F ADM Date: 03/05/24 Loc: ER Room: Type: [facility] ER Attending Dr: Copies to: Devika De La Garza DO Ordering Provider: Devika De La Garza DO Date of Service: 03/05/24 XR/XR chest 1V portable: Shortness of Breath/Dyspnea PORTABLE AP ERECT CHEST 2103 hours CLINICAL HISTORY: patient with cough and chest congestion COMPARISON: 12/02/2021 Evaluation is slightly limited by large body habitus. The heart is within normal limits. No consolidation is seen. There is no effusion or pneumothorax. There is slight levoscoliotic curvature and endplate spurring. XR/XR chest 1V portable IMPRESSION: NO ACUTE FINDINGS. Impression dictated by: Priscilla Cunningham M.D.03/05/2024 9:34 PM Dictation Location: [place] [address] Transcribed By: [facility] 03/05/242133 Dictated By: Priscilla Cunningham MD 03/05/242130 Signed By: 03/05/242133 Normal [facility] Quick Strepon 02-26-2024 Quick Strep Streptococcus pyogen es Ag [Presence] in Throat by Rapid immunoassay Negative for Group A Strep Antigen Note 1 NOTE 2 Results are those of a screening test. NOTE 3 If clinically indicated please order a culture. NOTE 4 NOTE 5 Reference range = Negative PERFORMED BY: [place] [address] PATHOLOGIST PELLETIZER TENDER LION STANLEY M.D. Normal [facility] Comment on above: Performed By: #### Q S #### [facility] [address] Streptococcus pyogenes antig en detectionOrdered By: Ck To on 02-26-2024 S. pyogenes Ag Ql (Unsp spec) [facility] Urinalysis macro (dipstick) panel (U)on 02-23-2024 Bilirubin, UA Negative Negative - 4(70) +++ mg/dL [facility] Blood, UA Negative Negative - 50 Bradley/mcL [facility] Clarity, UA Clear [facility] Color, UA Yellow [facility] Glucose, UA Negative Negative - 1999(110) ++++ mg/dL [facility] Interpretation and review of laboratory results Abnormal [facility] Ketones, UA Negative Negative - 160(16) ++++ mg/dL [facility] Leukocytes, UA Positive Negative - 500+++ Gabby/mcL [facility] Comment on above: small Nitrite, UA Negative Negative - Positive [facility] pH, UA 7 5 - 9 [facility] Protein, UA Negative Negative - 2000(20) ++++ mg/dL [facility] Spec Grav, UA 1.02 1 - 1.03 [facility] Urobilinogen, UA 0.2 0.2 - 12 mg/dL [facility] Alanine aminotransferase [En zymatic activity/volume] in Serum or PlasmaOrdered By: Marychuy Wangore on 10-06-2023 ALT [Catalytic activity/Vol] 13 U/L Normal 7-52 [facility] Comment on above: Performed By: #### C BC, CMP, HCGQNT #### [facility] [address] Albumin [Mass/volume] in Ser um or Plasma by Bromocresol green (BCG) dye binding methoOrdered By: Marychuy Bullimore on 10-06-2023 Albumin BCG dye [Mass/Vol] 3.8 g/dL 3.5-5.7 [facility] Alkaline phosphatase [Enzyma tic activity/volume] in Serum or PlasmaOrdered By: Marychuy Jeronimosariah on 10-06-2023 ALP [Catalytic activity/Vol] 61 U/L Normal 34-104 [facility] Comment on above: Performed By: #### C BC, CMP, HCGQNT #### [address] Aspartate aminotransferase [ Enzymatic activity/volume] in Serum or PlasmaOrdered By: Marychuy Bullimore on 10-06-2023 AST [Catalytic activity/Vol] 13 U/L Normal 13-39 [facility] Comment on above: Performed By: #### C BC, CMP, HCGQNT #### [address] Automated basophil %Ordered By: Marychuy Kyle on 10-06-2023 Basophils/100 WBC (Bld) 0.6 % Normal . [facility] Comment on above: Performed By: #### C BC, CMP, HCGQNT #### [address] Automated basophil countOrde red By: Marychuy Anabella on 10-06-2023 Basophils (Bld) [#/Vol] 0.0 10*3/uL Normal 0.0-0.2 [facility] Comment on above: Result Comment: PERF ORMED BY: [place] [address] PATHOLOGIST PELLETIZER TENDER LION STANLEY M.D. Performed By: #### C BC, CMP, HCGQNT #### [address] Automated blood monocyte cou ntOrdered By: Marychuy Jeroinmosariah on 10-06-2023 Monocytes (Bld) [#/Vol] 0.5 10*3/uL Normal 0.0-0.8 [facility] Comment on above: Performed By: #### C BC, CMP, HCGQNT #### [address] Automated eosinophil %Ordere d By: Marychuy Phaniimore on 10-06-2023 Eosinophils/100 WBC (Bld) 0.7 % Normal . [facility] Comment on above: Performed By: #### C BC, CMP, HCGQNT #### [facility] [address] [place] [address] Automated eosinophil countOr dered By: Marychuy Jeronimoimore on 10-06-2023 Eosinophils (Bld) [#/Vol] 0.1 10*3/uL Normal 0.0-0.45 [facility] Comment on above: Performed By: #### C BC, CMP, HCGQNT #### [facility] [address] [place] [address] Automated epithelial cells c ount in urine sediment (number/area)Ordered By: Marychuy Jeronimoimore on 10-06-2023 Epithelial cells Auto (Urine sed) [#/Area] 3-4 [HPF] 0-2 [facility] Automated monocyte %Ordered By: Marychuy Jeronimoimore on 10-06-2023 Monocytes/100 WBC (Bld) 6.7 % Normal . [facility] Comment on above: Performed By: #### C BC, CMP, HCGQNT #### [address] Automated neutrophil %Ordere d By: Marychuy Jeronimoimore on 10-06-2023 Neutrophils/100 WBC (Bld) 54.4 % Normal . [facility] Comment on above: Performed By: #### C BC, CMP, HCGQNT #### [address] Bacteria [Presence] in Urine by AutomatedOrdered By: Marychuy Jeronimoimdianne on 10-06-2023 Bacteria Auto Ql (U) None seen [HPF] None Seen [facility] Bilirubin Test strip Ql (U)O rdered By: Marychuy Phaniimore on 10-06-2023 Bilirubin Ql (U) Negative Negative [facility] Bilirubin.total [Mass/volume ] in Serum or PlasmaOrdered By: Marychuy Phaniimore on 10-06-2023 Bilirubin [Mass/Vol] 0.2 mg/dL Low 0.3-1.0 [facility] Comment on above: Performed By: #### C BC, CMP, HCGQNT #### [facility] [address] [place] [address] [place] Calcium [Mass/volume] in Ser um or PlasmaOrdered By: Marychuy Bullimore on 10-06-2023 Calcium [Mass/Vol] 9.4 mg/dL Normal 8.6-10.3 [facility] Comment on above: Performed By: #### C BC, CMP, HCGQNT #### [facility] [address] Carbon dioxide, total [Moles /volume] in Serum or PlasmaOrdered By: Marychuy Bullimore on 10-06-2023 CO2 [Moles/Vol] 25.5 mmol/L Normal 21.0-31.0 [facility] Comment on above: Performed By: #### C BC, CMP, HCGQNT #### [facility] [address] [place] [address] [place] Chloride [Moles/volume] in S sondra or PlasmaOrdered By: Marychuy Bullimore on 10-06-2023 Chloride [Moles/Vol] 105 mmol/L Normal 98-107 [facility] Comment on above: Performed By: #### C BC, CMP, HCGQNT #### [facility] [address] Choriogonadotropin.beta subu nit [Units/volume] in Serum or PlasmaOrdered By: Marychuy Phaniimore on 10-06-2023 HCG.beta subunit Qn 2799.00 m[IU]/mL [facility] Comment on above: Approximate Approxim ate hCG Gestational Age Range (mIU/ml) (weeks)0.2-1 5-50 1-2 50-500 2-3 100-5,000 3-4 500-10,000 4-5 1,000-50,000 5-6 10,000-100,000 6-8 15,000-200,000 8-12 10,000-100,000 Color of Urine by AutoOrdere d By: Marychuy Kyle on 10-06-2023 Color (U) Yellow Normal Yellow [facility] Comment on above: Order Comment: NEED MORE SPECIMEN Name Collection Type:: Clean-Voided Midstream Performed By: #### A DDONUAPLUS #### [address] Complete Blood Count Auto Di ffon 10-06-2023 Mean Corpuscular HGB Conc 34.4 g/dL Normal 32.0-35.0 [facility] Comment on above: Performed By: #### C BC, CMP, HCGQNT #### [address] Monocytes/100 WBC (Bld) 17.37 % Normal 0.00-20.00 [facility] Comment on above: Performed By: #### C BC, CMP, HCGQNT #### [address] NRBC% 0.2 /100{WBC} Normal 0-0.5 [facility] Comment on above: Performed By: #### C BC, CMP, HCGQNT #### [address] Comprehensive Metabolic Pane panchito 10-06-2023 Albumin [Mass/Vol] 3.8 g/dL Normal 3.5-5.7 [facility] Comment on above: Performed By: #### C BC, CMP, HCGQNT #### [address] Creatinine Clr Calc Pharmacy 180.48 Normal [facility] Comment on above: Performed By: #### C BC, CMP, HCGQNT #### [place] [address] [place] GFR/1.73 sq M.predicted MDRD (S/P/Bld) [Vol rate/Area] mL/min/{1.73_m2} Normal [facility] Comment on above: Performed By: #### C BC, CMP, HCGQNT #### [address] Creatinine [Mass/volume] in Serum or PlasmaOrdered By: Marychuy Kyle on 10-06-2023 Creatinine [Mass/Vol] 0.63 mg/dL Normal 0.60-1.20 [facility] Comment on above: Performed By: #### C BC, CMP, HCGQNT #### [facility] [address] [place] [address] [place] Dipstick and Microscopicon 0 10-06-2023 Appearance (U) Clear Normal Clear [facility] Comment on above: Order Comment: NEED MORE SPECIMEN Name Collection Type:: Clean-Voided Midstream Performed By: #### A DDONUAPLUS #### [place] [address] [place] Bacteria,Urine None Seen Normal None Seen [facility] Comment on above: Order Comment: NEED MORE SPECIMEN Name Collection Type:: Clean-Voided Midstream Performed By: #### A DDONUAPLUS #### [place] [address] [place] Bilirubin,Urine Negative Normal Negative [facility] Comment on above: Order Comment: NEED MORE SPECIMEN Name Collection Type:: Clean-Voided Midstream Performed By: #### A DDONUAPLUS #### [place] [address] [place] Glucose Ql (U) Normal Normal Normal [facility] Comment on above: Order Comment: NEED MORE SPECIMEN Name Collection Type:: Clean-Voided Midstream Performed By: #### A DDONUAPLUS #### [place] [address] [place] Hyaline Casts,Urine 0-8 Normal 0-[address] [facility] Comment on above: Order Comment: NEED MORE SPECIMEN Name Collection Type:: Clean-Voided Midstream Result Comment: PERF ORMED BY: [place] [address] PATHOLOGIST PELLETIZER TENDER LION STANLEY M.D. Performed By: #### A DDONUAPLUS #### [address] Ketones Ql (U) Negative Normal Negative [facility] Comment on above: Order Comment: NEED MORE SPECIMEN Name Collection Type:: Clean-Voided Midstream Performed By: #### A DDONUAPLUS #### [address] Leukocyte esterase Test strip Ql (U) 1+ High Negative [facility] Comment on above: Order Comment: NEED MORE SPECIMEN Name Collection Type:: Clean-Voided Midstream Performed By: #### A DDONUAPLUS #### [place] [address] [place] Nitrite,Urine Negative Normal Negative [facility] Comment on above: Order Comment: NEED MORE SPECIMEN Name Collection Type:: Clean-Voided Midstream Performed By: #### A DDONUAPLUS #### [address] Occult Blood,Urine Negative Normal Negative [facility] Comment on above: Order Comment: NEED MORE SPECIMEN Name Collection Type:: Clean-Voided Midstream Result Comment: PERF ORMED BY: [place] [address] PATHOLOGIST PELLETIZER TENDER LION STANLEY M.D. Performed By: #### A DDONUAPLUS #### [address] Protein,Urine Negative Normal Negative [facility] Comment on above: Order Comment: NEED MORE SPECIMEN Name Collection Type:: Clean-Voided Midstream Performed By: #### A DDONUAPLUS #### [address] RBC LM.HPF (Urine sed) [#/Area] 0 /[HPF] Normal 0-4 [facility] Comment on above: Order Comment: NEED MORE SPECIMEN Name Collection Type:: Clean-Voided Midstream Performed By: #### A DDONUAPLUS #### [address] Specificy [place],Urine 1.017 Normal 1.001-1.030 [facility] Comment on above: Order Comment: NEED MORE SPECIMEN Name Collection Type:: Clean-Voided Midstream Performed By: #### A DDONUAPLUS #### [facility] [address] Squamous Epithelial Cell,Urine 3-4 High 0-2 [facility] Comment on above: Order Comment: NEED MORE SPECIMEN Name Collection Type:: Clean-Voided Midstream Performed By: #### A DDONUAPLUS #### [address] Urobilinogen,Urine Normal Normal Normal [facility] Comment on above: Order Comment: NEED MORE SPECIMEN Name Collection Type:: Clean-Voided Midstream Performed By: #### A DDONUAPLUS #### [address] WBC,Urine 3-4 Normal 0-4 [facility] Comment on above: Order Comment: NEED MORE SPECIMEN Name Collection Type:: Clean-Voided Midstream Performed By: #### A DDONUAPLUS #### [address] Erythrocyte distribution wid th [Ratio] by Automated countOrdered By: Marychuy Wangore on 10-06-2023 Erythrocyte distribution width (RBC) [Ratio] 13.4 % Normal 11.9-15.3 [facility] Comment on above: Performed By: #### C BC, CMP, HCGQNT #### [address] Erythrocytes [#/area] in Uri ne sediment by Automated countOrdered By: Marychuy Bullimore on 10-06-2023 RBC Auto (Urine sed) [#/Area] 0-1 [HPF] 0-4 [facility] Erythrocytes [#/volume] in B lood by Automated countOrdered By: Marychuy Bullimore on 10-06-2023 RBC (Bld) [#/Vol] 4.08 10*6/uL Normal 3.60-5.00 [facility] Comment on above: Performed By: #### C BC, CMP, HCGQNT #### [address] Glucose [Mass/volume] in Ser um or PlasmaOrdered By: Marychuy Kyle on 10-06-2023 Glucose [Mass/Vol] 100 mg/dL Normal 70-100 [facility] Comment on above: ADA recommended refe rence rangeRandom Glucose Reference Range is dependent on time and content of last meal. Glucose of more than 200 mg/dL in a nonstressed, ambulatory subject supports the diagnosis of Diabetes Mellitus. Result Comment: [place] om Glucose Reference Range is dependent on time and content of last meal. Glucose of more than 200 mg/dL in a nonstressed, ambulatory subject supports the diagnosis of Diabetes Mellitus. ADA recommended reference range Performed By: #### C BC, CMP, HCGQNT #### [address] HCG,Quantitativeon HCG,Quantitative 2799.00 m[iU]/mL Normal [facility] Comment on above: Result Comment: Appr oximate Approximate hCG Gestational Age Range (mIU/ml) (weeks) 0.2-1 5-50 1-2 50-500 2-3 100-5,000 3-4 500-10,000 4-5 1,000-50,000 5-6 10,000-100,000 6-8 15,000-200,000 8-12 10,000-100,000 PERFORMED BY: [place] [address] PATHOLOGIST PELLETIZER TENDER LION STANLEY M.D. Performed By: #### C BC, CMP, HCGQNT #### [address] Hematocrit [Volume Fraction] of Blood by Automated countOrdered By: Marychuy Kyle on 10-06-2023 Hematocrit (Bld) [Volume fraction] 36.7 % Normal 34.0-46.4 [facility] Comment on above: Performed By: #### C BC, CMP, HCGQNT #### [address] Hemoglobin [Mass/volume] in BloodOrdered By: Marychuy Kyle on 10-06-2023 Hemoglobin (Bld) [Mass/Vol] 12.6 g/dL Normal 11.8-15.4 [facility] Comment on above: Performed By: #### C BC, CMP, HCGQNT #### [facility] [address] Ketones Auto test strip (U) [Mass/Vol]Ordered By: Marychuy Kyle on 10-06-2023 Ketones (U) [Mass/Vol] Negative Negative [facility] Laboratory - UrinalysisOrder ed By: Marychuy Jeronimoimore on 10-06-2023 Hyaline casts LM Ql (Urine sed) 0-8 [LPF] 0-8 [facility] Leukocytes [#/area] in Urine sediment by Automated countOrdered By: Marychuy Jeronimoimore on 10-06-2023 WBC Auto (Urine sed) [#/Area] 3-4 [HPF] 0-4 [facility] Leukocytes [#/volume] correc inocencia for nucleated erythrocytes in Blood by Automated counOrdered By: Marychuy Wangore on 10-06-2023 WBC corrected for nucl RBC Auto (Bld) [#/Vol] 7.4 10*3/uL 3.8-11.6 [facility] Leukocytes [#/volume] in Blo od by Automated countOrdered By: Marychuy Kyle on 10-06-2023 WBC (Bld) [#/Vol] 7.4 10*3/uL Normal 3.8-11.6 [facility] Comment on above: Performed By: #### C BC, CMP, HCGQNT #### [facility] [address] [place] [address] [place] Lymphocytes [#/volume] in Bl ood by Automated countOrdered By: Marychuy Kyle on 10-06-2023 Lymphocytes (Bld) [#/Vol] 2.8 10*3/uL Normal 1.00-4.8 [facility] Comment on above: Performed By: #### C BC, CMP, HCGQNT #### [facility] [address] [place] [address] [place] Lymphocytes/100 leukocytes i n Blood by Automated countOrdered By: Marychuy Kyle on 10-06-2023 Lymphocytes/100 WBC (Bld) 37.6 % Normal . [facility] Comment on above: Performed By: #### C BC, CMP, HCGQNT #### [facility] [address] [place] [address] MCH [Entitic mass] by Automa inocencia countOrdered By: Marychuy Jeronimoimore on 10-06-2023 MCH (RBC) [Entitic mass] 31.0 pg Normal 24.7-34.3 [facility] Comment on above: Performed By: #### C BC, CMP, HCGQNT #### [address] MCHC Auto (RBC) [Mass/Vol]Or dered By: Marychuy Bullimore on 10-06-2023 MCHC (RBC) [Mass/Vol] 34.4 g/dL 32.0-35.0 [facility] MCV [Entitic volume] by Auto mated countOrdered By: Mraychuy Kyle on 10-06-2023 MCV (RBC) [Entitic vol] 90.1 fL Normal 80-100 [facility] Comment on above: Performed By: #### C BC, CMP, HCGQNT #### [address] Monocyte distribution width [Entitic volume] in Blood by AutomatedOrdered By: Marychuy Kyle on 10-06-2023 Monocyte distribution width Auto (Bld) [Entitic vol] 17.37 % 0.00-20.00 [facility] Neutrophils [#/volume] in Bl ood by Automated countOrdered By: Marychuy Kyle on 10-06-2023 Neutrophils (Bld) [#/Vol] 4.0 10*3/uL Normal 1.8-7.7 [facility] Comment on above: Performed By: #### C BC, CMP, HCGQNT #### [address] Nitrite Test strip Ql (U)Ord ered By: Marychuy Kyle on 10-06-2023 Nitrite Ql (U) Negative Negative [facility] No Panel InformationOrdered By: Marychuy Kyle on 10-06-2023 Estimated GFR (CKD-EPI) > 60.0 mL/Min [facility] Creatinine Clearance (Chem 180.48 [facility] Nucleated erythrocytes [Pres ence] in Blood by Automated countOrdered By: Marychuy Kyle on 10-06-2023 Nucleated RBC Auto Ql (Bld) 0.2 /100{WBC} 0-0.5 [facility] Platelet mean volume [Entiti c volume] in Blood by Automated countOrdered By: Marychuy Bullimore on 10-06-2023 Platelet mean volume (Bld) [Entitic vol] 7.5 fL Normal 6.3-10.7 [facility] Comment on above: Performed By: #### C BC, CMP, HCGQNT #### [facility] [address] [place] [address] [place] Platelets [#/volume] in Bloo d by Automated countOrdered By: Marychuy Kyle on 10-06-2023 Platelets (Bld) [#/Vol] 367 10*3/uL Normal 150-450 [facility] Comment on above: Performed By: #### C BC, CMP, HCGQNT #### [facility] [address] [place] [address] [place] Potassium [Moles/volume] in Serum or PlasmaOrdered By: Marychuy Kyle on 10-06-2023 Potassium [Moles/Vol] 4.1 mmol/L Normal 3.5-5.1 [facility] Comment on above: Performed By: #### C BC, CMP, HCGQNT #### [facility] [address] [place] [address] [place] Protein Auto test strip (U) [Mass/Vol]Ordered By: Marychuy Kyle on 10-06-2023 Protein (U) [Mass/Vol] Negative Negative [facility] Protein [Mass/volume] in Ser um or PlasmaOrdered By: Marychuy Bullimore on 10-06-2023 Protein [Mass/Vol] 7.4 g/dL Normal 6.4-8.9 [facility] Comment on above: Performed By: #### C BC, CMP, HCGQNT #### [facility] [address] Serum globulin measurement b y calculation (mass/volume)Ordered By: Marychuy Bullimore on 10-06-2023 Globulin (S) [Mass/Vol] 3.6 g/dL [facility] Comment on above: Performed By: #### C BC, CMP, HCGQNT #### [facility] [address] [place] [address] Serum or plasma albumin/glob ulin mass ratioOrdered By: Marychuy Bullimore on 10-06-2023 Albumin/Globulin [Mass ratio] 1.1 {ratio} [facility] Comment on above: Performed By: #### C BC, CMP, HCGQNT #### [address] Serum or plasma anion gap de terminationOrdered By: Marychuy Bullimore on 10-06-2023 Anion gap [Moles/Vol] 12.6 mmol/L Normal 6.0-15.0 [facility] Comment on above: Performed By: #### C BC, CMP, HCGQNT #### [facility] [address] [place] [address] Sodium [Moles/volume] in Ser um or PlasmaOrdered By: Marychuy Bullimore on 10-06-2023 Sodium [Moles/Vol] 139 mmol/L Normal 136-145 [facility] Comment on above: Performed By: #### C BC, CMP, HCGQNT #### [facility] [address] [place] [address] Specific gravity Auto test s trip (U) [Rel density]Ordered By: Marychuy Bullimore on 10-06-2023 Specific gravity (U) [Rel density] 1.017 1.001-1.030 [facility] Urea nitrogen [Mass/volume] in Serum or PlasmaOrdered By: Marychuy Bullimore on 10-06-2023 Urea nitrogen [Mass/Vol] 7 mg/dL Normal 7-25 [facility] Comment on above: Performed By: #### C BC, CMP, HCGQNT #### [facility] [address] [place] [address] [place] Urine clarity by refractomet ry automatedOrdered By: Marychuy Kyle on 10-06-2023 Clarity Refractometry automated (U) Clear Clear [facility] Urine glucose measurement by automated test strip (mass/volume)Ordered By: Marychuy Kyle on 10-06-2023 Glucose Auto test strip (U) [Mass/Vol] Normal mg/dL Normal [facility] Urine hemoglobin detection b y automated test stripOrdered By: Marychuy Kyle on 10-06-2023 Hemoglobin Auto test strip Ql (U) Negative Negative [facility] Urine leukocyte esterase det ection by automated test stripOrdered By: Marychuy Kyle on 10-06-2023 Leukocyte esterase Auto test strip Ql (U) 1+ Negative [facility] Urine pH measurement by auto mated test stripOrdered By: Marychuy Kyle on 10-06-2023 pH (U) 7.0 [pH] Normal 5.0-9.0 [facility] Comment on above: Order Comment: NEED MORE SPECIMEN Name Collection Type:: Clean-Voided Midstream Performed By: #### A DDONUAPLUS #### [address] Urobilinogen Auto test strip (U) [Mass/Vol]Ordered By: Marychuy Kyle on 10-06-2023 Urobilinogen (U) [Mass/Vol] Normal mg/dL Normal [facility] 09-11-2023 MERONN Telephone (MARTIN) -------- JALEESA ARRIETA ([id number]) 1990 F Date Time Provider Department 09/11/23 TONYA SENIOR During your visit today, we recorded the following information about you: Tonya Senior APRN.LOT WORKER 09/11/2023 11:19 AM Signed Attempted to call [...] Date Reviewed: 08/20/2023 Reviewed by: Tonya Senior APRN.LOT WORKER - Fully Assessed Reason for Visit: Results [...] Encounter Status:Closed by TONYA SENIOR on 09/23/23 [facility] NICOTINE AND METAB, URon URIN ANABASINE QUANT <5 Normal [facility] Comment on above: Order Comment: Speci men Type: URINE SPECIMEN Ordering Facility: [facility] Address: [address] [place] [address] Performed By: #### U NICOT #### [facility] CLIA [id number] [address] [place] [address] URIN COTININE QUANT <15 Normal [facility] Comment on above: Order Comment: Speci men Type: URINE SPECIMEN Ordering Facility: [facility] Address: [address] [place] [address] Performed By: #### U NICOT #### [facility] CLIA [id number] [address] [place] [address] URIN NICOTINE QUANT <15 Normal [facility] Comment on above: Order Comment: Speci men Type: URINE SPECIMEN Ordering Facility: [facility] Address: [address] [place] [address] Result Comment: INTE RPRETIVE INFORMATION: Nicotine and Metabolites, Urine, Quantitative Methodology: Quantitative Liquid Chromatography-Tandem Mass Spectrometry Positive cutoff: Nicotine 15 ng/mL Cotinine 15 ng/mL 4-KV-Bakiizxp 50 ng/mL Anabasine 5 ng/mL For medical [...] developed and its performance characteristics determined by [facility]. It has not been cleared or approved by the [place] Food and Drug Administration. This test was performed in a CLIA certified laboratory and is intended for clinical purposes. Performed By: [facility] [address] [place] [address] Assignment Officer: Rex Zuleta MD, PhD CLIA Number: [id number] Performed By: #### U NICOT #### [facility] CLIA [id number] [address] [place] [address] URINE 3 [place] COTININE <50 Normal [facility] Comment on above: Order Comment: Speci men Type: URINE SPECIMEN Ordering Facility: [facility] Address: [address] [place] [address] Performed By: #### U NICOT #### [id number] [address] [place] [address] TOXICOLOGY SCREEN, ROUTINE U RINEon 09-08-2023 Amphetamines Confirm (U) [Mass/Vol] Negative Normal Negative [facility] Comment on above: Order Comment: Speci men Type: URINE SPECIMEN Ordering Facility: [facility] Address: [address] [place] [address] Result Comment: Cuto ff threshold at 1000 ng/mL. Performed By: #### U TOX2 #### [facility] CLIA [id number] [address] [place] [address] [place] BARBITURATES, URINE Negative Normal Negative [facility] Comment on above: Order Comment: Speci men Type: URINE SPECIMEN Ordering Facility: [facility] Address: [address] [place] [address] Result Comment: Cuto ff threshold at 200 ng/mL. Performed By: #### U TOX2 #### [facility] CLIA [id number] [address] [place] [address] [place] BENZODIAZEPINES, UR Negative Normal Negative [facility] Comment on above: Order Comment: Speci men Type: URINE SPECIMEN Ordering Facility: [facility] Address: [address] [place] [address] Result Comment: Cuto ff threshold at 200 ng/mL. Performed By: #### U TOX2 #### [facility] CLIA [id number] [address] [place] [address] [place] Cannabinoids Screen Ql (U) Negative Normal Negative [facility] Comment on above: Order Comment: Speci men Type: URINE SPECIMEN Ordering Facility: [facility] Address: [address] [place] [address] Result Comment: Cuto ff threshold at 50 ng/mL. Performed By: #### U TOX2 #### [facility] CLIA [id number] [address] [place] [address] [place] Cocaine Ql (U) Negative Normal Negative [facility] Comment on above: Order Comment: Speci men Type: URINE SPECIMEN Ordering Facility: [facility] Address: [address] [place] [address] Result Comment: Cuto ff threshold at 300 ng/mL. Performed By: #### U TOX2 #### [facility] CLIA [id number] [address] [place] [address] [place] Ethanol (U) [Mass/Vol] <11 Normal <11 [facility] Comment on above: Order Comment: Speci men Type: URINE SPECIMEN Ordering Facility: [facility] Address: [address] [place] [address] Performed By: #### U TOX2 #### [facility] CLIA [id number] [address] [place] [address] [place] Opiates Screen Ql (U) Negative Normal Negative [facility] Comment on above: Order Comment: Speci men Type: URINE SPECIMEN Ordering Facility: [facility] Address: [address] [place] [address] Result Comment: Cuto ff threshold at 300 ng/mL. Performed By: #### U TOX2 #### [facility] CLIA [id number] [address] [place] [address] [place] oxyCODONE cutoff Screen (U) [Mass/Vol] Negative Normal Negative [facility] Comment on above: Order Comment: Speci men Type: URINE SPECIMEN Ordering Facility: [facility] Address: [address] [place] [address] Result Comment: Cuto ff threshold at 100 ng/mL. Performed By: #### U TOX2 #### [facility] CLIA [id number] [address] [place] [address] [place] Phencyclidine Ql (U) Negative Normal Negative [facility] Comment on above: Order Comment: Speci men Type: URINE SPECIMEN Ordering Facility: [facility] Address: [address] [place] [address] Result Comment: Cuto ff threshold at 25 ng/mL. Performed By: #### U TOX2 #### [facility] CLIA [id number] [address] [place] [address] [place] 25(OH)D3 SerPl-ncon 2023 25-hydroxyvitamin D3 [Mass/Vol] 11.9 ng/mL Low 31.0-80.0 [facility] Comment on above: Order Comment: Speci men Type: BLOOD SPECIMEN Ordering Facility: [facility] Address: [address] [place] [address] Performed By: #### 2 276-4, 2131-9, 2283-8 #### [facility] CLIA [id number] [address] [place] [address] [place] CBC W Auto Differential pane l (Bld)on 09-05-2023 Basophils (Bld) [#/Vol] 10*3/uL Normal <0.11 [facility] Comment on above: Order Comment: Speci men Type: BLOOD SPECIMEN Ordering Facility: [facility] Address: [address] [place] [address] Performed By: #### 2 276-4, 2131-9, 2283-8 #### [facility] CLIA [id number] [address] [place] [address] [place] Basophils/100 WBC (Bld) 0.3 % Normal [facility] Comment on above: Order Comment: Speci men Type: BLOOD SPECIMEN Ordering Facility: [facility] Address: [address] [place] [address] Performed By: #### 2 276-4, 2132-01, 2283-12 #### [facility] CLIA [id number] [address] [place] [address] [place] Differential cell count method Nom (Bld) Auto Normal [facility] Comment on above: Order Comment: Speci men Type: BLOOD SPECIMEN Ordering Facility: [facility] Address: [address] [place] [address] Performed By: #### 2 276-4, 2132-01, 2283-12 #### [facility] CLIA [id number] [address] [place] [address] [place] Eosinophils (Bld) [#/Vol] 0.09 10*3/uL Normal <0.46 [facility] Comment on above: Order Comment: Speci men Type: BLOOD SPECIMEN Ordering Facility: [facility] Address: [address] [place] [address] Performed By: #### 2 276-4, 2132-01, 2283-12 #### [facility] CLIA [id number] [address] [place] [address] [place] Eosinophils/100 WBC (Bld) 1.3 % Normal [facility] Comment on above: Order Comment: Speci men Type: BLOOD SPECIMEN Ordering Facility: [facility] Address: [address] [place] [address] Performed By: #### 2 276-4, 2132-01, 2283-12 #### [facility] CLIA [id number] [address] [place] [address] [place] Erythrocyte distribution width (RBC) [Ratio] 12.6 % Normal 11.5-15.0 [facility] Comment on above: Order Comment: Speci men Type: BLOOD SPECIMEN Ordering Facility: [facility] Address: [address] [place] [address] Performed By: #### 2 276-4, 2132-01, 2283-12 #### [facility] CLIA [id number] [address] [place] [address] [place] Hematocrit (Bld) [Volume fraction] 38.0 % Normal 36.0-46.0 [facility] Comment on above: Order Comment: Speci men Type: BLOOD SPECIMEN Ordering Facility: [facility] Address: [address] [place] [address] Performed By: #### 2 276-4, 2132-01, 2283-12 #### [facility] CLIA [id number] [address] [place] [address] [place] Hemoglobin (Bld) [Mass/Vol] 12.8 g/dL Normal 11.5-15.5 [facility] Comment on above: Order Comment: Speci men Type: BLOOD SPECIMEN Ordering Facility: [facility] Address: [address] [place] [address] Performed By: #### 2 276-4, 2132-01, 2283-12 #### [facility] CLIA [id number] [address] [place] [address] [place] Immature granulocytes (Bld) [#/Vol] 10*3/uL Normal <0.10 [facility] Comment on above: Order Comment: Speci men Type: BLOOD SPECIMEN Ordering Facility: [facility] Address: [address] [place] [address] Performed By: #### 2 276-4, 2132-01, 2283-12 #### [facility] CLIA [id number] [address] [place] [address] [place] Immature granulocytes/100 WBC (Bld) 0.1 % Normal [facility] Comment on above: Order Comment: Speci men Type: BLOOD SPECIMEN Ordering Facility: [facility] Address: [address] [place] [address] Performed By: #### 2 276-4, 2132-01, 2283-12 #### [facility] CLIA [id number] [address] [place] [address] [place] Lymphocytes (Bld) [#/Vol] 3.49 10*3/uL Normal 1.00-4.00 [facility] Comment on above: Order Comment: Speci men Type: BLOOD SPECIMEN Ordering Facility: [facility] Address: [address] [place] [address] Performed By: #### 2 276-4, 2132-01, 2283-12 #### [facility] CLIA [id number] [address] [place] [address] [place] Lymphocytes/100 WBC (Bld) 48.6 % Normal [facility] Comment on above: Order Comment: Speci men Type: BLOOD SPECIMEN Ordering Facility: [facility] Address: [address] [place] [address] Performed By: #### 2 276-4, 2132-01, 2283-12 #### [facility] CLIA [id number] [address] [place] [address] [place] MCH (RBC) [Entitic mass] 30.0 pg Normal 26.0-34.0 [facility] Comment on above: Order Comment: Speci men Type: BLOOD SPECIMEN Ordering Facility: [facility] Address: [address] [place] [address] Performed By: #### 2 276-4, 2132-01, 2283-12 #### [facility] CLIA [id number] [address] [place] [address] [place] MCHC (RBC) [Mass/Vol] 33.7 g/dL Normal 30.5-36.0 [facility] Comment on above: Order Comment: Speci men Type: BLOOD SPECIMEN Ordering Facility: [facility] Address: [address] [place] [address] Performed By: #### 2 276-4, 2132-01, 2283-12 #### [facility] CLIA [id number] [address] [place] [address] [place] MCV (RBC) [Entitic vol] 89.2 fL Normal 80.0-100.0 [facility] Comment on above: Order Comment: Speci men Type: BLOOD SPECIMEN Ordering Facility: [facility] Address: [address] [place] [address] Performed By: #### 2 276-4, 9, 2283-12 #### [facility] CLIA [id number] [address] [place] [address] [place] Monocytes (Bld) [#/Vol] 0.48 10*3/uL Normal <0.87 [facility] Comment on above: Order Comment: Speci men Type: BLOOD SPECIMEN Ordering Facility: [facility] Address: [address] [place] [address] Performed By: #### 2 276-4, 2132-01, 2283-12 #### [facility] CLIA [id number] [address] [place] [address] [place] Monocytes/100 WBC (Bld) 6.7 % Normal [facility] Comment on above: Order Comment: Speci men Type: BLOOD SPECIMEN Ordering Facility: [facility] Address: [address] [place] [address] Performed By: #### 2 276-4, 2132-01, 2283-12 #### [facility] CLIA [id number] [address] [place] [address] [place] Neutrophils (Bld) [#/Vol] 3.09 10*3/uL Normal 1.45-7.50 [facility] Comment on above: Order Comment: Speci men Type: BLOOD SPECIMEN Ordering Facility: [facility] Address: [address] [place] [address] Performed By: #### 2 276-4, 2132-01, 2283-12 #### [facility] CLIA [id number] [address] [place] [address] [place] Neutrophils/100 WBC (Bld) 43.0 % Normal [facility] Comment on above: Order Comment: Speci men Type: BLOOD SPECIMEN Ordering Facility: [facility] Address: [address] [place] [address] Performed By: #### 2 276-4, 2132-01, 2283-12 #### [facility] CLIA [id number] [address] [place] [address] [place] Nucleated RBC (Bld) [#/Vol] 10*3/uL Normal <0.01 [facility] Comment on above: Order Comment: Speci men Type: BLOOD SPECIMEN Ordering Facility: [facility] Address: [address] [place] [address] Performed By: #### 2 276-4, 2132-01, 2283-12 #### [facility] CLIA [id number] [address] [place] [address] [place] Nucleated RBC/100 WBC (Bld) [Ratio] 0.0 /100 WBC Normal [facility] Comment on above: Order Comment: Speci men Type: BLOOD SPECIMEN Ordering Facility: [facility] Address: [address] [place] [address] Performed By: #### 2 276-4, 2132-01, 2283-12 #### [facility] CLIA [id number] [address] [place] [address] [place] Platelet mean volume (Bld) [Entitic vol] 9.2 fL Normal 9.0-12.7 [facility] Comment on above: Order Comment: Speci men Type: BLOOD SPECIMEN Ordering Facility: [facility] Address: [address] [place] [address] Performed By: #### 2 276-4, 2132-01, 2283-12 #### [facility] CLIA [id number] [address] [place] [address] [place] Platelets (Bld) [#/Vol] 361 10*3/uL Normal 150-400 [facility] Comment on above: Order Comment: Speci men Type: BLOOD SPECIMEN Ordering Facility: [facility] Address: [address] [place] [address] Performed By: #### 2 276-4, 2132-01, 2283-12 #### [facility] CLIA [id number] [address] [place] [address] [place] RBC (Bld) [#/Vol] 4.26 10*6/uL Normal 3.90-5.20 [facility] Comment on above: Order Comment: Speci men Type: BLOOD SPECIMEN Ordering Facility: [facility] Address: [address] [place] [address] Performed By: #### 2 276-4, 2132-01, 2283-12 #### [facility] CLIA [id number] [address] [place], [place] [address] [place] WBC (Bld) [#/Vol] 7.18 10*3/uL Normal 3.70-11.00 [facility] Comment on above: Order Comment: Speci men Type: BLOOD SPECIMEN Ordering Facility: [facility] Address: [address] [place] [address] Performed By: #### 2 276-4, 2132-01, 2283-12 #### [facility] CLIA [id number] [address] [place] [address] [place] Comprehensive metabolic 2000 panelon 09-05-2023 Albumin [Mass/Vol] 4.0 g/dL Normal 3.9-4.9 [facility] Comment on above: Order Comment: Speci men Type: BLOOD SPECIMEN Ordering Facility: [facility] Address: [address] [place] [address] Performed By: #### 2 4323-8 #### [facility] CLIA [id number] [address] [place] [address] ALP [Catalytic activity/Vol] 91 U/L Normal 34-123 [facility] Comment on above: Order Comment: Speci men Type: BLOOD SPECIMEN Ordering Facility: [facility] Address: [address] [place] [address] Performed By: #### 2 4323-8 #### [facility] CLIA [id number] [address] [place] [address] ALT [Catalytic activity/Vol] 15 U/L Normal 7-38 [facility] Comment on above: Order Comment: Speci men Type: BLOOD SPECIMEN Ordering Facility: [facility] Address: [address] [place], [place] [address] Performed By: #### 2 4323-8 #### [facility] CLIA [id number] [address] [place] [address] Anion gap [Moles/Vol] 10 mmol/L Normal 9-18 [facility] Comment on above: Order Comment: Speci men Type: BLOOD SPECIMEN Ordering Facility: [facility] Address: [address] [place] [address] Performed By: #### 2 4323-8 #### [facility] CLIA [id number] [address] [place] [address] AST [Catalytic activity/Vol] 13 U/L Normal 13-35 [facility] Comment on above: Order Comment: Speci men Type: BLOOD SPECIMEN Ordering Facility: [facility] Address: [address] [place] [address] Performed By: #### 2 4323-8 #### [facility] CLIA [id number] [address] [place] [address] Bilirubin [Mass/Vol] 0.3 mg/dL Normal 0.2-1.3 [facility] Comment on above: Order Comment: Speci men Type: BLOOD SPECIMEN Ordering Facility: [facility] Address: [address] [place], [place] [address] Performed By: #### 2 4323-8 #### [facility] CLIA [id number] [address] [place] [address] Calcium [Mass/Vol] 9.5 mg/dL Normal 8.5-10.2 [facility] Comment on above: Order Comment: Speci men Type: BLOOD SPECIMEN Ordering Facility: [facility] Address: [address] [place], [place] [address] Performed By: #### 2 4323-8 #### [facility] CLIA [id number] [address] [place] [address] Chloride [Moles/Vol] 106 mmol/L High 97-105 [facility] Comment on above: Order Comment: Speci men Type: BLOOD SPECIMEN Ordering Facility: [facility] Address: [address] [place] [address] Performed By: #### 2 4323-8 #### [facility] CLIA [id number] [address] [place] [address] CO2 [Moles/Vol] 26 mmol/L Normal 22-30 [facility] Comment on above: Order Comment: Speci men Type: BLOOD SPECIMEN Ordering Facility: [facility] Address: [address] [place] [address] Performed By: #### 2 4323-8 #### [facility] CLIA [id number] [address] [place] [address] Creatinine [Mass/Vol] 0.75 mg/dL Normal 0.58-0.96 [facility] Comment on above: Order Comment: Speci men Type: BLOOD SPECIMEN Ordering Facility: [facility] Address: [address] [place] [address] Performed By: #### 2 4323-8 #### [facility] CLIA [id number] [address] [place] [address] Creatinine and Glomerular filtration rate.predicted panel (S/P/Bld) 109 mL/min/1.73m??? Normal >=60 [facility] Comment on above: Order Comment: Laury bradshaw Type: BLOOD SPECIMEN Ordering Facility: [facility] Address: [address] [place] [address] Result Comment: Stephani mated Glomerular Filtration Rate [...] GFR. Performed By: #### 2 4323-8 #### [facility] CLIA [id number] [address] [place] [address] Glucose [Mass/Vol] 104 mg/dL High 74-99 [facility] Comment on above: Order Comment: Laury bradshaw Type: BLOOD SPECIMEN Ordering Facility: [facility] Address: [address] [place] [address] Result Comment: The [place] Diabetes Association (ADA) provides guidance for cutoff [...] Standards of Medical Care in Diabetes 2016, [place] Diabetes Association. Diabetes Care. 2016.39(Suppl 1). Performed By: #### 2 4323-8 #### [facility] CLIA [id number] [address] [place] [address] Potassium [Moles/Vol] 4.2 mmol/L Normal 3.7-5.1 [facility] Comment on above: Order Comment: Laury bradshaw Type: BLOOD SPECIMEN Ordering Facility: [facility] Address: [address] [place] [address] Performed By: #### 2 4323-8 #### [facility] CLIA [id number] [address] [place] [address] Protein [Mass/Vol] 7.4 g/dL Normal 6.3-8.0 [facility] Comment on above: Order Comment: Speci men Type: BLOOD SPECIMEN Ordering Facility: [facility] Address: [address] [place] [address] Performed By: #### 2 4323-8 #### [facility] CLIA [id number] [address] [place] [address] Sodium [Moles/Vol] 142 mmol/L Normal 136-144 [facility] Comment on above: Order Comment: Speci men Type: BLOOD SPECIMEN Ordering Facility: [facility] Address: [address] [place] [address] Performed By: #### 2 4323-8 #### [facility] CLIA [id number] [address] [place] [address] Urea nitrogen [Mass/Vol] 12 mg/dL Normal 7-21 [facility] Comment on above: Order Comment: Speci men Type: BLOOD SPECIMEN Ordering Facility: [facility] Address: [address] [place] [address] Performed By: #### 2 4323-8 #### [facility] CLIA [id number] [address] [place] [address] Ferritin SerPl-mCncon 2023 Ferritin [Mass/Vol] 86.7 ng/mL Normal 14.7-205.1 [facility] Comment on above: Order Comment: Speci men Type: BLOOD SPECIMEN Ordering Facility: [facility] Address: [address] [place] [address] Performed By: #### 2 276-4, 2132-9, 2284-8 #### [facility] CLIA [id number] [address] [facility] [place] [id number] [place] Folate SerPl-mCncon 09-05-19 Folate [Mass/Vol] 12.0 ng/mL Normal >4.7 [facility] Comment on above: Order Comment: Laury bradshaw Type: BLOOD SPECIMEN Ordering Facility: [facility] Address: [address] [place] [address] Performed By: #### 2 276-4, 2-9, 8 #### [facility] CLIA [id number] [address] [place] [address] [place] H. pylori IgG IA Qlon 2023 H. PYLORI IGG, QUAL Negative Normal Negative [facility] Comment on above: Order Comment: Laury bradshaw Type: BLOOD SPECIMEN Ordering Facility: [facility] Address: [address] [place] [address] Result Comment: Cash ot exclude H. pylori infection if the specimen collected 3-4 weeks after onset of symptoms. Performed By: #### 2 276-4, 9, 2283-12 #### [facility] CLIA [id number] [address] [place] [address] [place] HbA1c (Bld)on 09-05-2023 Average glucose Estimated from glycated hemoglobin (Bld) [Mass/Vol] 108 mg/dL Normal [facility] Comment on above: Order Comment: Laury bradshaw Type: BLOOD SPECIMEN Ordering Facility: [facility] Address: [address] [place] [address] Result Comment: eAG: (Estimated average glucose) is a calculated value from HgbA1c and is manufacturers service representative of the average blood glucose level in the last 2-3 month period. Performed By: #### 5 5454-3 #### [facility] CLIA [id number] [address] [place] [address] [place] HbA1c (Bld) [Mass fraction] 5.4 % Normal 4.3-5.6 [facility] Comment on above: Order Comment: Laury bradshaw Type: BLOOD SPECIMEN Ordering Facility: [facility] Address: [address] [place] [address] Result Comment: [place] Diabetes Association guidelines indicate that patients with HgbA1c in the range 5.7-6.4% are at increased risk for development of diabetes, and intervention by lifestyle modification may be beneficial. HgbA1c greater or equal to 6.5% is considered diagnostic of diabetes. Performed By: #### 5 5454-3 #### [facility] CLIA [id number] [address] [place] [address] [place] Iron and Iron binding capaci ty panelon 09-05-2023 Iron [Mass/Vol] 94 ug/dL Normal 41-186 [facility] Comment on above: Order Comment: Speci men Type: BLOOD SPECIMEN Ordering Facility: [facility] Address: [address] [place] [address] Performed By: #### 5 0190-8, 3016-3, 12634-8 #### [facility] CLIA [id number] [address] [place] [address] [place] #### 10234-3 #### [facility] CLIA [id number] [address] [place], [place] [address] [place] [facility] CLIA [id number] [address] [place] [address] Iron binding capacity [Mass/Vol] 310 ug/dL Normal 232-386 [facility] Comment on above: Order Comment: Speci men Type: BLOOD SPECIMEN Ordering Facility: [facility] Address: [address] [place] [address] Performed By: #### 5 0190-8, 6-3, 61671-0 #### [facility] CLIA [id number] [address] [place] [address] [place] #### 47885-2 #### [facility] CLIA [id number] [address] [place], [place] [address] [place] [facility] CLIA [id number] [address] [place] [address] Iron/TIBC [Molar ratio] 30.3 % Normal 15.0-57.0 [facility] Comment on above: Order Comment: Speci men Type: BLOOD SPECIMEN Ordering Facility: [facility] Address: [address] [place] [address] Performed By: #### 5 0190-8, 3016-3, 89710-8 #### [facility] CLIA [id number] [address] [place] [address] [place] #### 76683-4 #### [facility] CLIA [id number] [address] [place] [address] [place] [facility] CLIA [id number] [address] [place] [address] Lipid 1996 panelon 4 Cholesterol [Mass/Vol] 179 mg/dL Normal <200 [facility] Comment on above: Order Comment: Speci men Type: BLOOD SPECIMEN Ordering Facility: [facility] Address: [address] [place] [address] Result Comment: <200 mg/dL, Desirable 200-239 mg/dL, Borderline high >239 mg/dL, High Performed By: #### 2 276-4, 2132-01, 2283-12 #### [facility] CLIA [id number] [address] [place] [address] [place] Cholesterol in HDL [Mass/Vol] 45 mg/dL Normal >39 [facility] Comment on above: Order Comment: Speci men Type: BLOOD SPECIMEN Ordering Facility: [facility] Address: [address] [place] [address] Result Comment: 40-5 9 mg/dL, Acceptable >59 mg/dL, High: Negative risk factor for coronary heart disease <40 mg/dL, Low: Positive risk factor for coronary heart disease Performed By: #### 2 276-4, 2132-01, 2283-12 #### [facility] CLIA [id number] [address] [place] [address] [place] Cholesterol in LDL [Mass/Vol] 119 mg/dL High <100 [facility] Comment on above: Order Comment: Laury bradshaw Type: BLOOD SPECIMEN Ordering Facility: [facility] Address: [address] [place] [address] Result Comment: <100 mg/dL, Optimal 100-129 mg/dL, Near optimal/above optimal 130-159 mg/dL, Borderline high 160-189 mg/dL, High >189 mg/dL, Very high Secondary prevention optimal LDL Cholesterol levels are recommended to be < 70 mg/dL Performed By: #### 2 276-4, 2132-01, 2283-12 #### [facility] CLIA [id number] [address] [place] [address] [place] Cholesterol in LDL/Cholesterol in HDL [Mass ratio] 2.64 {ratio} High <2.54 [facility] Comment on above: Order Comment: Laury bradshaw Type: BLOOD SPECIMEN Ordering Facility: [facility] Address: [address] [place] [address] Result Comment: Belinda degroot: 1. National Cholesterol Education Program ATP III Guideline At-A-Glance Quick Desk Reference: National Heart, Lung, and Blood [place]. National Institutes of Health. 2001: NIH Publication No. 01-3305. 2. An International Atherosclerosis Society position paper: global recommendations for the management of dyslipidemia: executive summary, Atherosclerosis. 2014: 232(2):410-413. Performed By: #### 2 276-4, 2132-01, 2283-12 #### [facility] CLIA [id number] [address] [place] [address] [place] Cholesterol in VLDL [Mass/Vol] 15 mg/dL Normal <30 [facility] Comment on above: Order Comment: Laury bradshaw Type: BLOOD SPECIMEN Ordering Facility: [facility] Address: [address] [place] [address] Performed By: #### 2 276-4, 2132-01, 2283-12 #### [facility] CLIA [id number] [address] [place] [place] [address] [place] Cholesterol non HDL [Mass/Vol] 134 mg/dL High <130 [facility] Comment on above: Order Comment: Speci men Type: BLOOD SPECIMEN Ordering Facility: [facility] Address: [address] [place] [address] Result Comment: <130 mg/dL, Optimal 130-159 mg/dL, Near optimal/above optimal 160-189 mg/dL, Borderline high 190-219 mg/dL, High >219 mg/dL, Very high Secondary prevention optimal non HDL Cholesterol levels are recommended to be <100 mg/dL Performed By: #### 2 276-4, 9, 2283-12 #### [facility] CLIA [id number] [address] [place] [address] [place] Cholesterol.total/Cho lesterol in HDL [Mass ratio] 3.98 {ratio} Normal <5.10 [facility] Comment on above: Order Comment: Speci men Type: BLOOD SPECIMEN Ordering Facility: [facility] Address: [address] [place] [address] Performed By: #### 2 276-4, 2132-01, 2283-12 #### [facility] CLIA [id number] [address] [place] [address] [place] FASTING TIME 12 hrs Normal [facility] Comment on above: Order Comment: Speci men Type: BLOOD SPECIMEN Ordering Facility: [facility] Address: [address] [place] [address] Performed By: #### 2 276-4, 2132-01, 2283-12 #### [facility] CLIA [id number] [address] [place] [address] [place] Triglyceride [Mass/Vol] 74 mg/dL Normal <150 [facility] Comment on above: Order Comment: Speci men Type: BLOOD SPECIMEN Ordering Facility: [facility] Address: [address] [place] [address] Result Comment: <150 mg/dL, Normal 150-199 mg/dL, Borderline high 200-499 mg/dL, High >499 mg/dL, Very high Performed By: #### 2 276-4, 9, 2283-12 #### [facility] CLIA [id number] [address] [place] [address] [place] NT-proBNP SerPl-mCncon 09-04 Natriuretic peptide.B prohormone N-Terminal [Mass/Vol] 48 pg/mL Normal <125 [facility] Comment on above: Order Comment: Speci men Type: BLOOD SPECIMEN Ordering Facility: [facility] Address: [address] [place] [address] Performed By: #### 2 276-4, 2132-01, 2283-12 #### [facility] CLIA [id number] [address] [place] [address] [place] TSH SerPl-aCncon 09-05-2023 TSH Qn 6.440 m[IU]/L High 0.270-4.200 [facility] Comment on above: Order Comment: Speci men Type: BLOOD SPECIMEN Ordering Facility: [facility] Address: [address] [place] [address] Result Comment: If t he patient is , TSH reference range varies by gestational period: First Trimester (weeks 9-12): 0.180-2.990 mIU/L Second Trimester: 0.110-3.980 mIU/L Third Trimester: 0.480-4.710 mIU/L Seth Crews et al. A Practical Approach for the Verifications and Determination of Site- and Trimester-Specific Reference Intervals for Thyroid Function tests in . Thyroid, 2019:29:3:412-420. Zhang Ybarra, et al. 2017 Guidelines of the [place] Thyroid Association for the Diagnosis and Management of Thyroid Disease during and the . Thyroid, 2017:27:3:315-389. Performed By: #### 2 276-4, 9, 2283-12 #### [facility] CLIA [id number] [address] [place] [address] [place] VITAMIN B1 (THIAMINE), WHOLE BLOODon 04-26-2024 Thiamine (Bld) [Moles/Vol] 179.2 nmol/L Normal 84.3-213.3 [facility] Comment on above: Order Comment: Laury bradshaw Type: BLOOD SPECIMEN Ordering Facility: [facility] Address: [address] [place] [address] Result Comment: This assay measures the concentration of thiamine diphosphate (TDP), the primary active form of vitamin B1. Approximately 90 percent of vitamin B1 present in whole blood is TDP. Thiamine and thiamine monophosphate, which comprise the remaining 10 percent, are not measured. This test was developed and its performance characteristics determined by [facility] Pathology and Laboratory Medicine [place] ([facility]). It has not been cleared or approved by the FDA. [facility] is regulated under CLIA as qualified to perform high-complexity testing. This test is used for clinical purposes. It should not be regarded as investigational or for research. Performed By: #### B 1WB #### [facility] CLIA [id number] [address] [place] [address] [place] Vit B12 [facility] 09-04- 024 Cobalamin (Vitamin B12) [Mass/Vol] 612 pg/mL Normal 232-1245 [facility] Comment on above: Order Comment: Laury bradshaw Type: BLOOD SPECIMEN Ordering Facility: [facility] Address: [address] [place] [address] Performed By: #### 2 276-4, 2132-9, 2284-8 #### [facility] CLIA [id number] [address] [place] [address] [place] Glucose - FINGER STICKon Glucose [Mass/Vol] 5.4 mg/dL [employer] Other PAP ACOG PANEL 2: 30 to 65on 06-10-2022 . . Normal [facility] Comment on above: Result Comment: Perf ormed at: WB Performed By: #### 4 [id number] #### [facility] [address] [address] [address] Sachin Coates Age Gdln ACOG Testing 30-65 Normal [facility] Comment on above: Performed By: #### 4 [id number] #### [facility] [address] [place] [address] Dr. Sachin Coates DIAGNOSIS: Comment Normal [facility] Comment on above: Result Comment: NEGA TIVE FOR INTRAEPITHELIAL LESION OR MALIGNANCY. CELLULAR CHANGES ASSOCIATED WITH INFLAMMATION ARE PRESENT. THIS SPECIMEN WAS RESCREENED PART OF OUR SENIOR PORTFOLIO MANAGER PROGRAM. Performed at: WB Performed By: #### 4 [id number] #### [facility] [address] [place] [address] Dr. Sachin Coates HPV Aptima Negative Normal Negative [facility] Comment on above: Result Comment: This nucleic acid amplification test detects fourteen high-risk HPV types (16,18,31,33,35,39,45,51,52,56,58,59,66,68) without differentiation. Performed at: =G Performed By: #### 4 [id number] #### [facility] [address] [place] [address] Dr. Sachin Coates HPV Genotype Reflex Comment Normal [facility] Comment on above: Result Comment: Crit eria not met, HPV Genotype not performed. Performed at: WB Performed By: #### 4 [id number] #### [facility] [address] [place] [address] Dr. Sachin Coates Methodology: Comment Normal [facility] Comment on above: Result Comment: This liquid based ThinPrep(R) pap test was screened with the use of an image guided system. Performed at: WB Performed By: #### 4 [id number] #### [facility] [address] [place] [address] Dr. Sachin Coates Note: Comment Normal [facility] Comment on above: Result Comment: The Pap smear is a screening test designed to aid in the detection of premalignant and malignant conditions of the uterine cervix. It is not a diagnostic procedure and should not be used as the sole means of detecting cervical cancer. Both false-positive and false-negative reports do occur. . Performed at: WB Performed By: #### 4 [id number] #### [facility] [address] [place] [address] Dr. Sachin Coates Performed by: Comment Normal [facility] Comment on above: Result Comment: Peyton Beverly, Systems Software Developer (ASCP) Performed at: WB Performed By: #### 4 [id number] #### [facility] [address] [place], [place] [address] Dr. Sachin Coates QC reviewed by: Comment Normal [facility] Comment on above: Result Comment: Cielo Cochran, Supervisory Systems Software Developer (ASCP) Performed at: WB Performed By: #### 4 [id number] #### [facility] [address] [place], [place] [address] Dr. Sachin Coates Specimen adequacy: Comment Normal [facility] Comment on above: Result Comment: Sati sfactory for evaluation. Endocervical and/or squamous metaplastic cells (endocervical component) are present. Performed at: WB Performed By: #### 4 [id number] #### [facility] [address] [address] [address] Sachin Coates COVID-19 SOFIAOrdered By: Dario To on 12-02-2021 SARS-CoV+SARS-CoV-2 (COVID-19) Ag IA.rapid Ql (Resp) Negative Negative [facility] Comment on above: This is a duplicate Zuleyma SARS Antigen (PAMELLA) result to be used for statistical tracking purpose only. No Panel InformationOrdered By: Ck To on 12-02-2021 SARS Antigen (LFIA) [facility] Chart Updateon 08-08-2020 Chart Update Chart Update Called patient back to discuss. confirmed appointment for next week. Message Recorded as Task Date: 08/08/2020 08:25 AM, Created By: Taylor Hernandez Task Name: Call Back Assigned To: Nickie Littlejohn Regarding Patient: JALEESA ARRIETA, Status: In Progress Comment: Taylor Hernandez - [...] [facility] Signatures Electronically signed by : RADHA Campos; Aug 08 2020 10:18AM EST (Author) Normal [facility] REUSE TECHNICIAN - Procedure Visiton 0 07-10-2020 REUSE TECHNICIAN - Procedure Visit Chief Complaint IUI Active [...] [facility] ESTRADIOLon 07-08-2020 ESTRADIOL 186 pg/mL Normal [facility] Comment on above: Result Comment: Estr adiol measurement is performed using the Shruthi Onyu Access Sensitive Estradiol Immunoassay. Estradiol testing is performed using a different test methodology at [facility] than other [facility]. Direct result comparison should only be made within the same method. REF VALUES EARLY FOLLICULAR 22-115 MID FOLLICULAR 25-115 OVULATORY PEAK 32-517 MID LUTEAL 37-246 POSTMENOPAUSE <15- 25 MALE <15- 32 Performed By: #### [facility] #### [facility] [address] [place] [address] Estradiol, Serumon 1 E2 [Mass/Vol] 186 pg/mL MG-OBGYN-Ri an 310 IVF Work Phone: Comment on above: Estradiol measuremen t is performed using the Shruthi Onyu Access Sensitive Estradiol Immunoassay. Estradiol testing is performed using a different test methodology at [facility] than other [facility]. Direct result comparison should only be made within the same method.REF VALUESEARLY FOLLICULAR 22-115MID FOLLICULAR 25-115OVULATORY PEAK 32-517MID LUTEAL 37-246POSTMENOPAUSE <15- 25MALE <15- 32 LUTEINIZING HORMONEon 2020 LUTEINIZING HORMONE 9.5 IU/L Normal [facility] Comment on above: Result Comment: Lute inizing Hormone [LH] is performed using the Shruthi J Carlos Access Immunoassay. LH testing is performed using a different test methodology at [facility] than other [facility]. Direct result comparison should only be made within the same method. REF VALUES FOLLICULAR PHASE 1.5-10.0 MID-CYCLE 13.0-72.0 LUTEAL PHASE 0.5-13.0 MENOPAUSE 15.0-65.0 PREPUBERTY 0- 3.0 CHILDREN 0- 6.0 ADULT MALE 1.0- 9.0 Performed By: #### [facility] #### [facility] [address] [place] [address] Luteinizing Hormone, Serumon 07-08-2020 Lutropin Qn 9.5 {IU/L} FZ-BSNHG-Uwqi an 310 IVF Work Phone: Comment on above: Luteinizing Hormone [LH] is performed using the Shruthi Onyu Access Immunoassay. LH testing is performed using a different test methodology at [facility] than other [facility]. Direct result comparison should only be made within the same method.REF VALUESFOLLICULAR PHASE 1.5-10.0MID-CYCLE 13.0-72.0LUTEAL PHASE 0.5-13.0MENOPAUSE 15.0-65.0PREPUBERTY 0- 3.0CHILDREN 0- 6.0ADULT MALE 1.0- 9.0 TYPE + SCREENon 07-06-2020 ABO TYPE A Normal [facility] Comment on above: Performed By: #### T +S #### [facility] [address] [place] [address] RH TYPE Positive Normal [facility] Comment on above: Performed By: #### T +S #### [facility] [address] [place] [address] ESTRADIOLon 07-05-2020 ESTRADIOL 58 pg/mL Normal [facility] Comment on above: Result Comment: Estr adiol measurement is performed using the Shruthi Onyu Access Sensitive Estradiol Immunoassay. Estradiol testing is performed using a different test methodology at [facility] than other [facility]. Direct result comparison should only be made within the same method. REF VALUES EARLY FOLLICULAR 22-115 MID FOLLICULAR 25-115 OVULATORY PEAK 32-517 MID LUTEAL 37-246 POSTMENOPAUSE <15- 25 MALE <15- 32 Performed By: #### [facility] #### [facility] [address] [place] [address] Estradiol, Serumon E2 [Mass/Vol] 58 pg/mL MG-OBGYN-Ri sm an 310 IVF Work Phone: Comment on above: Estradiol measuremen t is performed using the Shruthi Onyu Access Sensitive Estradiol Immunoassay. Estradiol testing is performed using a different test methodology at [facility] than other [facility]. Direct result comparison should only be made within the same method.REF VALUESEARLY FOLLICULAR 22-115MID FOLLICULAR 25-115OVULATORY PEAK 32-517MID LUTEAL 37-246POSTMENOPAUSE <15- 25MALE <15- 32 Hematologyon 07-05-2020 ABO group Nom (Bld) A MG-[employer]-Rism an 310 IVF Work Phone: Blood group antibody screen Ql Negative [id number]-Qlaw an 310 IVF Work Phone: Rh immune globulin screen (Bld) [Interp] Positive MG-OBGYN-R ism an 310 IVF Work Phone: LUTEINIZING HORMONEon 2020 LUTEINIZING HORMONE 9.2 IU/L Normal [facility] Comment on above: Result Comment: Lute inizing Hormone [LH] is performed using the Shruthi Onyu Access Immunoassay. LH testing is performed using a different test methodology at [facility] than other [facility]. Direct result comparison should only be made within the same method. REF VALUES FOLLICULAR PHASE 1.5-10.0 MID-CYCLE 13.0-72.0 LUTEAL PHASE 0.5-13.0 MENOPAUSE 15.0-65.0 PREPUBERTY 0- 3.0 CHILDREN 0- 6.0 ADULT MALE 1.0- 9.0 Performed By: #### L #### [facility] [address] [place] [address] Luteinizing Hormone, Serumon 07-05-2020 Lutropin Qn 9.2 {IU/L} CS-[id number]-Bdgp an 310 IVF Work Phone: Comment on above: Luteinizing Hormone [LH] is performed using the Shruthi Onyu Access Immunoassay. LH testing is performed using a different test methodology at [facility] than other [facility]. Direct result comparison should only be made within the same method.REF VALUESFOLLICULAR PHASE 1.5-10.0MID-CYCLE 13.0-72.0LUTEAL PHASE 0.5-13.0MENOPAUSE 15.0-65.0PREPUBERTY 0- 3.0CHILDREN 0- 6.0ADULT MALE 1.0- 9.0 REUSE TECHNICIAN - Office Visiton REUSE TECHNICIAN - Office Visit Diagnoses/Problems Assessed Morbid obesity [...] MD [facility] [phone] [place] [phone] [place] 1 Amended By: Bayron Mccarty; Jun 19 2020 10:16 AM ESTProvider Chitos Jaleesa is a 30-year-old female who desires [...] MD [facility] [phone] [place] [phone] [place] Appointment Duration:. 25 minutes; greater than half of the time was spent on counseling. 1 Amended By: Bayron Mccarty; Jun 19 2020 10:16 AM ESTChief Complaint follow up History of Present Gcooppm8106/19/2020 9:30AM JALEESA ARRIETA , 30 year is contacted for an (audio-visual, or audio only) Telehealth visit. Today's visit was provided through telemedicine conferencing: Using [employer] platform. Consent: The concept of telemedicine? has [...] is a telehealth appointment Results/Data HCG, Beta [id number] 11:58AMBayron Mccarty Test NameResultFlagReference HCG, Beta Quantitative<2 [...] performed using a different test methodology at [facility] than other [facility]. Direct result comparison should only be made within the same method. REF VALUES NON FEMALE <5 MALES <5 Progesterone, [id number] 11:58AMBayron Mccarty Test NameResultFlagReference Progesterone, Serum10.5 ng/mL REF VALUES MALE <0.3- 1.2 FOLLICULAR PHASE <0.3- 1.4 LUTEAL PHASE 3.3-25.6 MID-LUTEAL PHASE 4.4-28.0 POSTMENOPAUSAL <0.3- 0.7 FEMALES: 1ST TRIMESTER 11.2- 90.0 2ND TRIMESTER 25.6- 89.4 3RD TRIMESTER 48.4-422.5 . Patients receiving DHEA-S supplements may show false elevation of progesterone for results near 1.0 ng/mL. Contact laboratory at [phone] if alternative testing is needed. CMV IgG and IgM [id number] 11:58AMBayron Mccarty Test NameResultFlagReference CMV IgG AntibodyREACTIVEASee Below Reference Range: NONREACTIVE CMV IGM [id number] 11:58AMBayron Mccarty Test NameResultFlagReference CMV IGM AB<30.00 AU/mL REFERENCE [...] testing in two or more weeks. Xray Rivspxuqljysveeifoi49Gyc 2020 12:00AMBayron Mccarty [Mar 28, 2020 9:43AM Bayron Mccarty] Reason: Unspecified for Xray Hysterosalpingogram Test NameResultFlagReference Xray Hysterosalpingogram Please click on the link to view the study images Anti Mullerian [id number] 12:03PMBayron Mccarty Test NameResultFlagReference Anti Mullerian Hormone6.36 ng/mL For assays employing antibodies, the possibility exists for interference by heterophile antibodies in the samples.1 1.Oswald Crews. Interferences in Immunoassays - still a threat. Clin. Chem. 2000; 46: 5446-4336. This test was developed and its performance characteristics determined by [facility]. It has not been cleared or approved by the Food and Drug Administration. Reference Range: Females 26 - 30y: 1.03 - 11.10 Median 4.20 AMH concentrations of >= 1.06 ng/mL is correlated with a better response to ovarian stimulation, produced more retrievable oocytes and higher odds of live according to Carey et al. Fertility and Sterility. 2010: 94:8208-5872. The current AMH test method correlates with [...] exclude an AMH-secreting ovarian tumor. Rubella IgG [id number] 12:03PMBayron Mccarty Test NameResultFlagReference Rubella IgG AntibodyPOSITIVE [...] TSH WITH REFLEX TO FREE T4 IF [id number] 12:03PMBayron Mccarty Test NameResultFlagReference Thyroid Stimulating Hormone, Serum2.17 mIU/LSee Below Reference Range: 0.44 - 3.98 TSH testing is performed using different testing methodology at [facility] than at other [facility]. Direct result comparisons should only be made within the same method. Varicella Zoster IgG [id number] 12:03PMBayron Mccarty Test NameResultFlagReference Varicella Zoster IgG [...] altered results in serological assays. Vitamin D 25-[id number] 12:03PMBayron Mccarty Test NameResultFlagReference Vitamin D 25-Hydroxy, Level17 ng/mLA . DEFICIENCY: < 20 NG/ML INSUFFICIENCY: 20-29 NG/ML SUFFICIENCY: 30-100 NG/ML THIS ASSAY ACCURATELY QUANTIFIES THE SUM OF VITAMIN D3, 25-HYDROXY AND VIT D2,25-HYDROXY. { 17-Hydroxyprogesterone, [id number] 12:03PMBayron Mccarty Test NameResultFlagReference 17-Hydroxyprogesterone, Serum33 ng/dL [...] Endocrinol Metab. 1991;73:674-686; J Clin Endocrinol Metab. 1989;69;1051-7427; J Clin Endocrinol Metab. 1994;78:226-270. Pediatr Res 1988;23:525-529. MedLinePlus (accessed 10/25/13). This test was developed and its analytical performance characteristics have been determined by [facility] [place], [place]. It has not been cleared or approved by the U.S. Food and Drug Administration. This assay has been validated pursuant to the CLIA regulations and is used for clinical purposes. DHEA Sulfate, [id number] 12:03PMBibiana Bayron Test NameResultFlagReference DHEA Sulfate, Slfzk215 ug/dL65 - 395 MATURITY-BASED REFERENCE RANGES: PUBERTAL [...] laboratory for further information. Testosterone Free + [id number] 12:03PMBibiana Bayron Test NameResultFlagReference Testosterone, Total63 ng/dLH2-45 For additional information, please refer to http://education.[employer]/faq/ TotalTestosteroneLCMSMSF AQ165 (This link is being provided for informational/ educational purposes only.) This test was developed and its analytical performance characteristics have been determined by [facility] [place], [place]. It has not been cleared or approved by the U.S. Food and Drug Administration. This assay has been validated pursuant to the CLIA regulations and is used for clinical purposes. Testosterone, Free Serum8.8 pg/mLH0.1-6.4 This test was developed and its analytical performance characteristics have been determined by [facility] [place], [place]. It has not been cleared or approved by the U.S. Food and Drug Administration. This assay has been validated pursuant to the CLIA regulations and is used for clinical purposes. Hemoglobin [id number] 12:03PMBayron Mccarty Test NameResultFlagReference Hemoglobin A1C, Level5.5 % Diagnosis of Diabetes-Adults Non-Diabetic: < or = 5.6% Increased risk for developing diabetes: 5.7-6.4% Diagnostic of diabetes: > or = 6.5% . Monitoring of Diabetes Age (y) Therapeutic Goal (%) Adults: >18 <7.0 Pediatrics: 13-18 <7.5 7-12 <8.0 0- 6 7.5-8.5 [place] [employer]. Diabetes Care 33(S1), May 2009. Estimated Average Uizvlpd944 MG/DL GC + Chlamydia By Amplified [id number] 12:03PMBayron Mccarty Test NameResultFlagReference N.GONORRHEA,AMPLIFIEDNEG ATIVENegative SOURCE: Urine Chlamydia Trach, AmplifiedNEGATIVENegativ e Hepatitis B Surface [id number] 12:03PMBayron Mccarty Test NameResultFlagReference Hep.B Surface AgNONREACTIVESee Below Reference Range: NONREACTIVE Biotin interference may cause falsely decreased results. Patients taking a Biotin dose of up to 5 mg/day should refrain from taking Biotin for 24 hours before sample collection. Providers may contact their local laboratory for further information. Hepatitis C Antibody [id number] 12:03PMBayron Mccarty Test NameResultFlagReference Hepatitis C-AntibodyNONREACTIVESee Below Reference Range: NONREACTIVE Results from patients taking biotin supplements or receiving high-dose biotin therapy should be interpreted with caution due to possible interference with this test. Providers may contact their local laboratory for further information. HIV 1/2 ANTIGEN/ANTIBODY SCREEN WITH REFLEX TO [id number] 12:03PMBayron Mccarty NameResultFlagReference HIV 1/2 AG/AB SCREENNONREACTIVESee Below Reference Range: NONREACTIVE HIV Ag/Ab screen is performed using the Siemens [employer]ell[employer] HIV Ag/Ab Combo assay which detects the presence of HIV p24 antigen as well as antibodies to HIV-1 (Group M and O) and HIV-2. SYPHILIS SCREENING WITH [id number] 12:03Bayron Silva Test NameResultFlagReference SYPHILIS TOTAL ANTIBODYNONREACTIVESee Below SOURCE: Reference Range: NONREACTIVE No significant level of Treponema pallidum antibody detected. Repeat testing in 2 to 4 weeks may be considered if early infection or incubating syphilis infection is suspected. Signatures Electronically signed by : Bayron Mccarty MD; Jun 19 2020 10:16AM EST (Author) Normal [facility] CMV IGM ABon 04-20-2020 CMV IGM AB <30.[address] [facility] Comment on above: Result Comment: REFE [...] weeks. Performed By: #### C MVM2 #### [facility] [employer] [address] [place] [address] CMV IGG AND IGM ABon 020 CMV IGG AB REACTIVE Abnormal NONREACTIVE [facility] Comment on above: Performed By: #### C MV2 #### [facility] [address] [place] [address] PROGESTERONEon 04-16-2020 PROGESTERONE 10.5 ng/mL Normal [facility] Comment on above: Result Comment: REF VALUES MALE <0.3- 1.2 FOLLICULAR PHASE <0.3- 1.4 LUTEAL PHASE 3.3-25.6 MID-LUTEAL PHASE 4.4-28.0 POSTMENOPAUSAL <0.3- 0.7 FEMALES: 1ST TRIMESTER 11.2- 90.0 2ND TRIMESTER 25.6- 89.4 3RD TRIMESTER 48.4-422.5 . Patients receiving DHEA-S supplements may show false elevation of progesterone for results near 1.0 ng/mL. Contact laboratory at [phone] if alternative testing is needed. Performed By: #### P BOBBY #### [facility] [address] [place] [address] HCG,BETA-QUANTITATIVEon HCG,BETA-QUANTITATIVE <[address] [facility] Comment on above: Result Comment: Low- [...] HCG measurement is performed using the Shruthi Florence Access Immunoassay which detects intact HCG and free beta HCG subunit. This test is not indicated for use as a tumor marker. HCG testing is performed using a different test methodology at [facility] than other [facility]. Direct result comparison should only be made within the same method. REF VALUES NON FEMALE <5 MALES <5 Performed By: #### H QU #### [address] [phone] REUSE TECHNICIAN - Office Visiton REUSE TECHNICIAN - Office Visit Chief Complaint An interactive audio and video telecommunication system which permits real time communications between the patient (at the originating site) and provider (at the distant site) was utilized to provide this telehealth service. Verbal consent was requested and obtained from JALEESA ARRIETA on this date, 04/14/2020 09:30 AM , for a telehealth visit. Pt presents for a FUV to discuss her test results. Roby JEWELL. History of Present Uqzxmtw7104/14/2020 9:30AM JALEESA ARRIETA , 30 year is contacted for an (audio-visual, or audio only) Telehealth visit. Today's visit was provided through telemedicine conferencing: Using [employer] platform. Consent: The concept of telemedicine? has [...] 25 MCG (1000 UT) Oral Tablet; Therapy: [id number] to Recorded Dispense: 0 Days ; #: Sufficient Tablet; Refill: 0; KEVIN = N; Record; Last Updated By: Breezy Jasso; 2020 1:15:24 PM Vitals Vital Signs Recorded: 57Shq0435 09:08AM Height5 ft 6 in Woxvux093 lb BMI Vejgvruykq77.81 BSA Calculated2.34 [id number] Gravida1 Para0 Pain Scale0 Physical Exam This is a telehealth appointment Results/Data Anti Mullerian Blpokfb11Ikw7155 12:03PMBayron Mccarty Test NameResultFlagReference Anti Mullerian Hormone6.36 ng/mL For assays employing antibodies, the possibility exists for interference by heterophile antibodies in the samples.1 1.Oswald Crews. Interferences in Immunoassays - still a threat. Clin. Chem. 2000; 46: 6080-8055. This test was developed and its performance characteristics determined by [facility]. It has not been cleared or approved by the Food and Drug Administration. Reference Range: Females 26 - 30y: 1.03 - 11.10 Median 4.20 AMH concentrations of >= 1.06 ng/mL is correlated with a better response to ovarian stimulation, produced more retrievable oocytes and higher odds of live according to Gleicher et al. Fertility and Sterility. 2010: 94:4423-6946. The current AMH test method correlates with [...] exclude an AMH-secreting ovarian tumor. Anti Mullerian Jlhtmxk78Rfo0251 12:03PMBayron Mccarty Test NameResultFlagReference Anti Mullerian Hormone6.36 ng/mL For assays employing antibodies, the possibility exists for interference by heterophile antibodies in the samples.1 1.Oswald Crews. Interferences in Immunoassays - still a threat. Clin. Chem. 2000; 46: 8670-1204. This test was developed and its performance characteristics determined by [facility]. It has not been cleared or approved by the Food and Drug Administration. Reference Range: Females 26 - 30y: 1.03 - 11.10 Median 4.20 AMH concentrations of >= 1.06 ng/mL is correlated with a better response to ovarian stimulation, produced more retrievable oocytes and higher odds of live according to Gleicher et al. Fertility and Sterility. 2010: 94:5806-5422. The current AMH test method correlates with [...] exclude an AMH-secreting ovarian tumor. Rubella IgG Knasklve04Lie7334 12:03PMBibiana Bayron Test NameResultFlagReference Rubella IgG AntibodyPOSITIVE SOURCE: INTERPRETATIVE [...] TSH WITH REFLEX TO FREE T4 IF [id number] 12:03PMBayron Mccarty Test NameResultFlagReference Thyroid Stimulating Hormone, Serum2.17 mIU/LSee Below Reference Range: 0.44 - 3.98 TSH testing is performed using different testing methodology at [facility] than at other [facility]. Direct result comparisons should only be made within the same method. Varicella Zoster IgG Medqqqgx67Fcd2770 12:03PMBayron Mccarty Test NameResultFlagReference Varicella Zoster IgG [...] altered results in serological assays. Vitamin D 25-Lprpmmj14Usg9527 12:03PMFindley, Bayron Test NameResultFlagReference Vitamin D 25-Hydroxy, Level17 ng/mLA . DEFICIENCY: < 20 NG/ML INSUFFICIENCY: 20-29 NG/ML SUFFICIENCY: 30-100 NG/ML THIS ASSAY ACCURATELY QUANTIFIES THE SUM OF VITAMIN D3, 25-HYDROXY AND VIT D2,25-HYDROXY. { 17-Hydroxyprogesterone, Gzcpc99Avt6741 12:03PMYuniorBayron polanco Test NameResultFlagReference 17-Hydroxyprogesterone, Serum33 ng/dL Unable to [...] Endocrinol Metab. 1991;73:674-686; J Clin Endocrinol Metab. 1989;69;1841-4580; J Clin Endocrinol Metab. 1994;78:226-270. Pediatr Res 1988;23:525-529. MedLinePlus (accessed 10/25/13). This test was developed and its analytical performance characteristics have been determined by [facility] [place] [place]. It has not been cleared or approved by the U.S. Food and Drug Administration. This assay has been validated pursuant to the CLIA regulations and is used for clinical purposes. DHEA Sulfate, Hcsld17Ewy5128 12:03YuniorBayron polanco Test NameResultFlagReference DHEA Sulfate, Riexu050 ug/dL65 - 395 MATURITY-BASED REFERENCE RANGES: PUBERTAL [...] laboratory for further information. Testosterone Free + Nsfgb41Nuq2309 12:03PMBayron Mccarty Test NameResultFlagReference Testosterone, Total63 ng/dLH2-45 For additional information, please refer to http://education.[employer]/faq/ TotalTestosteroneLCMSMSF AQ165 (This link is being provided for informational/ educational purposes only.) This test was developed and its analytical performance characteristics have been determined by [facility] [place] [place]. It has not been cleared or approved by the U.S. Food and Drug Administration. This assay has been validated pursuant to the CLIA regulations and is used for clinical purposes. Testosterone, Free Serum8.8 pg/mLH0.1-6.4 This test was developed and its analytical performance characteristics have been determined by [facility] [place] [place]. It has not been cleared or approved by the U.S. Food and Drug Administration. This assay has been validated pursuant to the CLIA regulations and is used for clinical purposes. Hemoglobin J2H17Tow1196 12:03PMBayron Mccarty Test NameResultFlagReference Hemoglobin A1C, Level5.5 % Diagnosis of Diabetes-Adults Non-Diabetic: < or = 5.6% Increased risk for developing diabetes: 5.7-6.4% Diagnostic of diabetes: > or = 6.5% . Monitoring of Diabetes Age (y) Therapeutic Goal (%) Adults: >18 <7.0 Pediatrics: 13-18 <7.5 7-12 <8.0 0- 6 7.5-8.5 [place] [employer]. Diabetes Care 33(S1), May 2009. Estimated Average Ktuqtul755 MG/DL GC + Chlamydia By Amplified Takialxpy31Qyu5977 12:03PMBayron Mccarty Test NameResultFlagReference N.GONORRHEA,AMPLIFIEDNEG ATIVENegative SOURCE: Urine Chlamydia Trach, AmplifiedNEGATIVENegativ e Hepatitis B Surface Vcqwier70Oyh0737 12:03PMBayron Mccarty Test NameResultFlagReference Hep.B Surface AgNONREACTIVESee Below Reference Range: NONREACTIVE Biotin interference may cause falsely decreased results. Patients taking a Biotin dose of up to 5 mg/day should refrain from taking Biotin for 24 hours before sample collection. Providers may contact their local laboratory for further information. Hepatitis C Antibody Igxv89Bws6838 12:03PMBayron Mccarty Test NameResultFlagReference Hepatitis C-AntibodyNONREACTIVESee Below Reference Range: NONREACTIVE Results from patients taking biotin supplements or receiving high-dose biotin therapy should be interpreted with caution due to possible interference with this test. Providers may contact their local laboratory for further information. HIV 1/2 ANTIGEN/ANTIBODY SCREEN WITH REFLEX TO QYBZOKZWWALR24Vpl2967 12:03PMBayron Mccarty Test NameResultFlagReference HIV 1/2 AG/AB SCREENNONREACTIVESee Below Reference Range: NONREACTIVE HIV Ag/Ab screen is performed using the Siemens [employer] HIV Ag/Ab Combo assay which detects the presence of HIV p24 antigen as well as antibodies to HIV-1 (Group M and O) and HIV-2. SYPHILIS SCREENING WITH JJSUON46Fdp3730 12:03PMBayron Mccarty Test NameResultFlagReference SYPHILIS TOTAL ANTIBODYNONREACTIVESee Below SOURCE: Reference Range: NONREACTIVE No significant level of Treponema pallidum antibody detected. Repeat testing in 2 to 4 weeks may be considered if early infection or incubating syphilis infection is suspected. Diagnoses/Problems Irregular menses (626.4) (N92.6) Morbid obesity (278.01) (E66.01) Orders HCG, Beta Quantitative; Status:Active; Requested for:01Gzg9064; Perform:Lab Services - Lab To Draw (Blood Test); Due:13Jul2020;Ordered; For:Irregular menses; Ordered By:Bayron Mccarty; Progesterone, Serum; Status:Active; Requested for:19Kca3436; Perform:Lab Services - Lab To Draw (Blood Test); Due:13Jul2020;Ordered; For:Irregular menses; Ordered By:Bayron Mccarty; Provider Impressions [...] MD [facility] [phone] [place] [phone] [place] Appointment Duration:. 25 minutes; greater than half [...] MD [facility] [phone] [place] [phone] [place] 1 Amended By: Bayron Mccarty; Apr 14 2020 4:50 PM ESTSignatures Electronically signed by : Bayron Mccarty MD; Apr 14 2020 4:51PM EST (Author) Normal [facility] REUSE TECHNICIAN - Procedure Visiton 1 05-28-2019 REUSE TECHNICIAN - Procedure Visit Chief Complaint pt presents [...] 1 CAPSULE EVERY 12 HOURS DAILY; Therapy: 70Fbp7712 to (Evaluate:78Aov7529) Requested for: 70Hwo6232; Last Rx:[id number] Ordered Rx By: Bayron Mccarty; Dispense: 5 Days ; #:10 Capsule; Refill: 0;For: Fertility testing; KEVIN = N; Verified Transmission to [place] [address]; Msg to Pharmacy: start medication the night before her procedure; Last Updated By: Elham TakeChargeTess; 01/24/2020 12:08:27 PM Vitamin D 25 MCG (1000 UT) Oral Tablet; Therapy: 66Bms5369 to Recorded Dispense: 0 Days ; #: [...] dr. Mccarty Signatures Electronically signed by : RADHA Mason; Mar 28 2020 4:10PM EST (Author) [facility] RE[facility] TECHNICIAN - Office Visiton 110 REUSE TECHNICIAN - Office Visit Chief Complaint The patient is being seen today at the request of for MFM Consultation regarding Preconception; SILVIA Patient; Morbid Obesity- BMI 47. History of Present IllnessDear Dr. Mccarty, We had the opportunity to see your patient Jaleesa Arrieta in the office of Maternal Medicine on 2020. As you are aware she is a 30 year old who we saw in preconception consultation for obesity. Other than obesity Dr. Arrieta denies any other significant past medical history. Specifically she denies a history of CHTN or TIIDM. Her BP at her most recent visit was normal and her HgA1c in January was 5.5%. She is considering single parent procreation. Her usual Automation Mechanic with whom she would plan to follow with for care in a future is Dr. Ng in [place]. Active Problems Female infertility (628.9) (N97.9) Fertility [...] 1 CAPSULE EVERY 12 HOURS DAILY; Therapy: 40Vuy6046 to (Evaluate:94Uya0141) Requested for: 15Pjj0116; Last Rx:[id number] Ordered Rx By: Bayron Mccarty; Dispense: 5 Days ; #:10 Capsule; Refill: 0; For: Fertility testing; KEVIN = N; Verified Transmission to [place] [address]; Msg to Pharmacy: start medication the night before her procedure; Last Updated By: Cindi Lizarraga; 01/24/2020 12:08:27 PM Vitamin D 25 MCG (1000 UT) Oral Tablet; Therapy: 07Fed6662 to Recorded Dispense: 0 Days ; #: Sufficient Tablet; Refill: 0; KEVIN = N; Record; Last Updated By: Breezy Jasso; 2020 1:15:24 PM Vitals Vital Signs Recorded: 13Mar2020 01:08PM Heart Rate96 Uuybirxl448 Jizhuumih03 Height5 ft 6 in Jhfwoz918 lb BMI Ojpycewwnb91.91 BSA Calculated2.39 Tobacco Useb) No Fall Screeninga) No falls within the last year [id number] Gravida1 Para0 Pain Scale0 Diagnoses/Problems Morbid obesity [...] consultation of which greater than 50% was trbx-aj-vjgd counseling. Weight loss prior to conception is [...] MD; Jun 12 2020 4:50PM EST [facility] ANTI MULLERIAN HORMONEon ANTI MULLERIAN HORMONE 6.36 ng/mL Normal [facility] Comment on above: Result Comment: For assays employing antibodies, the possibility exists for interference by heterophile antibodies in the samples.1 1.Oswald Brunner Interferences in Immunoassays - still a threat. Clin. Chem. 2000; 46: 1125-6523. This test was developed and its performance characteristics determined by [facility]. It has not been cleared or approved by the Food and Drug Administration. Reference Range: Females 26 - 30y: 1.03 - 11.10 Median 4.20 AMH concentrations of >= 1.06 ng/mL is correlated with a better response to ovarian stimulation, produced more retrievable oocytes and higher odds of live according to Michaeler et al. Fertility and Sterility. 2010: 94:4149-5463. The current AMH test method correlates with [...] ovarian tumor. Performed By: #### A #### [facility] [address] [place] [id number] 17-HYDROXYPROGESTERONEon 17-HYDROXYPROGESTERON E 33 ng/dL Normal [facility] Comment on above: Result Comment: Unable to [...] Endocrinol Metab. 1991;73:674-686; J Clin Endocrinol Metab. 1989;69;2902-9695; J Clin Endocrinol Metab. 1994;78:226-270. Pediatr Res 1988;23:525-529. MedLinePlus (accessed 10/25/13). This test was developed and its analytical performance characteristics have been determined by [facility] [place], [place]. It has not been cleared or approved by the U.S. Food and Drug Administration. This assay has been validated pursuant to the CLIA regulations and is used for clinical purposes. Performed By: #### 1 7OHP #### [facility] [address] [place], [place] TESTOST,FREE AND TOTALon TESTOSTERONE TOT.LC/MS/MS 63 ng/dL High 2-45 [facility] Comment on above: Result Comment: For additional information, please refer to http://education.[employer]/faq/ XvfukKfhpppfrbwaqLWQJHZERQ406 (This link is being provided for informational/ educational purposes only.) This test was developed and its analytical performance characteristics have been determined by [facility] [place], [place]. It has not been cleared or approved by the U.S. Food and Drug Administration. This assay has been validated pursuant to the CLIA regulations and is used for clinical purposes. Performed By: #### [facility] #### [facility] [address] [place] [address] TESTOSTERONE,FREE 8.8 pg/mL High 0.1-6.4 [facility] Comment on above: Result Comment: This test was developed and its analytical performance characteristics have been determined by [facility] [place], [place]. It has not been cleared or approved by the U.S. Food and Drug Administration. This assay has been validated pursuant to the CLIA regulations and is used for clinical purposes. Performed By: #### [facility] #### [facility] [address] [place] [address] DHEA SULFATEon 01-25-2020 DHEA SULFATE 214 ug/dL Normal 65 - 395 [facility] Comment on above: Result Comment: MATU RITY-BASED [...] for further information. Performed By: #### [facility] #### [facility] [address] [place] [address] GC + CHLAMYDIA BY AMPLIFIED DETECTIONon 01-25-2020 CHLAMYDIA TRACH.,AMPLIFIED Negative Normal Negative [facility] Comment on above: Performed By: #### [facility] #### [facility] [address] [place] [address] N.GONORRHEA,AMPLIFIED Negative Normal Negative [facility] Comment on above: Performed By: #### [facility] #### [facility] [address] [place] [address] HEPATITIS B SURFACE AGon HEP.B SURFACE AG NONREACTIVE Normal NONREACTIVE [facility] Comment on above: Result Comment: Biot in interference may cause falsely decreased results. Patients taking a Biotin dose of up to 5 mg/day should refrain from taking Biotin for 24 hours before sample collection. Providers may contact their local laboratory for further information. Performed By: #### [facility] #### [facility] [address] [place] [address] HEPATITIS C ABon 01-25-2020 HEPATITIS C AB NONREACTIVE Normal NONREACTIVE [facility] Comment on above: Result Comment: Resu lts from patients taking biotin supplements or receiving high-dose biotin therapy should be interpreted with caution due to possible interference with this test. Providers may contact their local laboratory for further information. Performed By: #### H [facility] #### [facility] [address] [place] [address] HIV ANTIGEN/ANTIBODY SCREENo n 01-25-2020 HIV AG/AB SCREEN NONREACTIVE Normal NONREACTIVE [facility] Comment on above: Result Comment: HIV Ag/Ab screen is performed using the Siemens [employer] HIV Ag/Ab Combo assay which detects the presence of HIV p24 antigen as well as antibodies to HIV-1 (Group M and O) and HIV-2. Performed By: #### G CCHA #### [facility] [address] [place] [address] RUBELLA IGG ABon 01-25-2020 RUBELLA IGG AB Positive Normal [facility] Comment on above: Result Comment: INTE [...] assays. Performed By: #### R UBIG #### [facility] [address] [place] [address] SYPHILIS SCREENING WITH REFL EXon 01-25-2020 SYPHILIS TOTAL AB NONREACTIVE Normal NONREACTIVE [facility] Comment on above: Result Comment: No s ignificant level of Treponema pallidum antibody detected. Repeat testing in 2 to 4 weeks may be considered if early infection or incubating syphilis infection is suspected. Performed By: #### S YPHR #### [facility] [address] [place] [address] TSH WITH REFLEX TO FREE T4 I F ABNORMALon 01-25-2020 TSH Qn 2.17 m[IU]/L Normal 0.44 - 3.98 [facility] Comment on above: Result Comment: TSH testing is performed using different testing methodology at [facility] than at other [facility]. Direct result comparisons should only be made within the same method. Performed By: #### G CCHA #### [facility] [address] [place] [address] VARICELLA ZOSTER IGG ABon VARICELLA ZOSTER IGG AB Negative Normal NEGATIVE [facility] Comment on above: Result Comment: INTE RPRETATIVE [...] in serological assays. Performed By: #### V [facility] #### [facility] [address] [place] [address] VITAMIN D, 25-HYDROXYon 01-10 VITAMIN D, 25-HYDROXY 17 ng/mL Abnormal [facility] Comment on above: Result Comment: . DEFICIENCY: < 20 NG/ML INSUFFICIENCY: 20-29 NG/ML SUFFICIENCY: 30-100 NG/ML THIS ASSAY ACCURATELY QUANTIFIES THE SUM OF VITAMIN D3, 25-HYDROXY AND VIT D2,25-HYDROXY. { Performed By: #### [facility] #### [facility] [address] [place] [address] GC + CHLAMYDIA BY AMPLIFIED DETECTIONon 01-24-2020 Lab Specimen Source Urine Normal [facility] Comment on above: Performed By: #### [facility] #### [facility] [address] [place] [address] HEMOGLOBIN A1Con 01-24-2020 HbA1c (Bld) [Mass fraction] 5.5 % Normal [facility] Comment on above: Result Comment: Diag nosis of Diabetes-Adults Non-Diabetic: < or = 5.6% Increased risk for developing diabetes: 5.7-6.4% Diagnostic of diabetes: > or = 6.5% . Monitoring of Diabetes Age (y) Therapeutic Goal (%) Adults: >18 <7.0 Pediatrics: 13-18 <7.5 7-12 <8.0 0- 6 7.5-8.5 [place] [employer]. Diabetes Care 33(S1), May 2009. Performed By: #### H BA1E #### [facility] [address] [place] [address] HbA1c (Bld) [Mass fraction] 111 MG/DL Normal [facility] Comment on above: Performed By: #### H BA1E #### [facility] [address] [place] [address] REUSE TECHNICIAN - Office Visiton 01-10 REUSE TECHNICIAN - Office Visit Chief Complaint 29 year old patient being seen today for New Patient Fertility Consultation to discuss options. History of Present IllnessSep 2019 11:15AM Consult from: self History of present illness: Ms. JALEESA ARRIETA is a 29 year female who presents with concerns regarding infertility. She has attempted for 2 years in past without success. He Boyfriend is currently incarcerated, and will be in long-term until 2026. She is interested in pursuing fertility testing today, and pending these results would potentially be interested in single-parent procreation with donor sperm. She is not currently sexually active. She has a history of ectopic in 2011, which was treated with laparoscopic left salpingectomy in [facility]. Patient has a remote history of gonorrhea [...] Symptoms: Heavy bleeding with no severe pain CONVERTING TECHNICIAN HISTORY: STDs: Yes, remote history of gonorrhea [...] PM Vitals Vital Signs Recorded: 24Jan2020 11:13AM Loncnykgiaw41.7 F Heart Ymje751 Kmtmppxl274 Gompegcoi02 Height5 ft 6 in Pphlig694 lb BMI Tdgiwvyzuk06.13 BSA Calculated2.35 Tobacco Useb) No Fall Screeninga) No falls within the last year [id number] Gravida1 Para0 Pain Scale0 Diagnoses/Problems Female infertility (628.9) (N97.9) Fertility testing (V26.21) (Z31.41) Morbid obesity (278.01) (E66.01) Irregular menses (626.4) (N92.6) Screening for STD (sexually transmitted disease) (V74.5) (Z11.3) *Orders Anti Mullerian Hormone; Status:Active; Requested for:71Drg1158; Perform:Lab Services - Lab To Draw (Non-Blood Test); Due:76Hvn4236;Ordered; For:Female infertility, Fertility testing, Irregular menses, Morbid obesity; Ordered By:Bayron Mccarty; Start: Doxycycline Monohydrate 100 MG Oral Capsule; TAKE 1 CAPSULE EVERY 12 HOURS DAILY Rx By: Bayron Mccarty; Dispense: 5 Days ; #:10 Capsule; Refill: 0; For: Fertility testing; KEVIN = N; Verified Transmission to [facility]; Msg to Pharmacy: start medication the night before her procedure; Last Updated By: Cindi Lizarraga; 01/24/2020 12:08:27 PM Maternal Medicine Referral Evaluation and Treatment Evaluate AND Treat Status: Hold For - Scheduling Requested for: 51Wic6846 Ordered; For: Morbid obesity; Ordered By: Bayron Mccarty Performed: Due: 60Ika3783 17-Hydroxyprogesterone, Serum; Status:Active; Requested for:14Oug6660; Perform:Lab Services - Lab To Draw (Blood Test); Due:96Jnl7999;Ordered; For:Screening for STD (sexually transmitted disease); Ordered By:Bayron Mccarty; DHEA Sulfate, Serum; Status:Active; Requested for:43Hlb2339; Perform:Lab Services - Lab To Draw (Blood Test); Due:14Jwd1160;Ordered; For:Screening for STD (sexually transmitted disease); Ordered By:Bayron Mccarty; Hemoglobin A1C; Status:Active; Requested for:15Slw6940; Perform:Lab Services - Lab To Draw (Blood Test); Due:78Rjm8306;Ordered; For:Screening for STD (sexually transmitted disease); Ordered By:Bayron Mccarty; Rubella IgG Antibody; Status:Active; Requested for:02Gzp8304; Perform:Lab Services - Lab To Draw (Blood Test); Due:97Cwb9588;Ordered; For:Screening for STD (sexually transmitted disease); Ordered By:Bayron Mccarty; Testosterone Free + Total; Status:Active; Requested for:20Dge4204; Perform:Lab Services - Lab To Draw (Blood Test); Due:11Fmh6766;Ordered; For:Screening for STD (sexually transmitted disease); Ordered By:Bayron Mccarty; TSH WITH REFLEX TO FREE T4 IF ABNORMAL; Status:Active; Requested for:[id number]; Perform:Lab Services - Lab To Draw (Blood Test); Due:[id number];Ordered; For:Screening for STD (sexually transmitted disease); Ordered By:Bayron Mccarty; Ultrasound Pelvis Transvaginal; Status:Hold For - Scheduling; Requested for:[id number]; Perform:[facility] Imaging; Order Comments:will call with menses to schedule; Due:[id number];Ordered; For:Screening for STD (sexually transmitted disease); Ordered By:Bayron Mccarty; Radiologist to Determine Optimal Study : Y What are the patient's signs and symptoms? : fert testing Varicella Zoster IgG Antibody; Status:Active; Requested for:[id number]; Perform:Lab Services - Lab To Draw (Blood Test); Due:[id number];Ordered; For:Screening for STD (sexually transmitted disease); Ordered By:Bayron Mccarty; Vitamin D 25-Hydroxy; Status:Active; Requested for:[id number]; Perform:Lab Services - Lab To Draw (Blood Test); Due:[id number];Ordered; For:Screening for STD (sexually transmitted disease); Ordered By:Bayron Mccarty; Xray Hysterosalpingogram; Status:Hold For - Scheduling; Requested for:[id number]; Perform:[facility] Imaging; Order Comments:will call with menses to schedule. schedule between CD5-12. start doxycycline night prior to procedure; Due:[id number];Ordered; For:Screening for STD (sexually transmitted disease); Ordered By:Bayron Mccarty; Radiologist to Determine Optimal Study : Y What are the patient's signs and symptoms? : fert testing Tobacco Use Screening; Status:Complete; Done: 24Jan2020 Perform:Not Applicable;Ordered; For:SocHx: Never a smoker; Ordered [...] sent to her home pharmacy ([facility] [place]) [ ] Day 3 FSH, LH, E2 [x] AMH [x] TSH [x] Prolactin [x] Testosterone, DHEAS [x] HgA1C [x] STD screening [x ] Preconceptual screening including Rubella,Varicella, Blood type [ ] Genetic Screen with [employer] - will consider [ ] Take vitamins [x] Return to see MARKET MAKER after workup complete to discuss management plan [...] REFL EXon 01-24-2020 Lab Specimen Source Normal [facility] Comment on above: Performed By: #### S [facility] #### [facility] [address] [place] [address] Performed By: #### V ARZG #### [facility] [address] [place] [address] Performed By: #### R UBIG #### [facility] [address] [place] [address] Vital Signs Date Time Vital Sign Value Performing Clinician Facility 03-05-2024 23:11-0400 Diastolic blood pressure 78 mm[Hg] [facility] Work Phone: [facility] 03-05-2024 23:11-0400 Heart rate 90 /min [facility] Work Phone: [facility] 03-05-2024 23:11-0400 Respiratory rate 18 /min [facility] Work Phone: [facility] 03-05-2024 23:11-0400 SaO2% (BldA) [Mass fraction] 96 % [facility] Work Phone: [facility] 03-05-2024 23:11-0400 Systolic blood pressure 136 mm[Hg] [facility] Work Phone: [facility] 03-05-2024 19:59-0400 Body temperature 98.1 [degF] [facility] Work Phone: [facility] 03-05-2024 19:58-0400 Body height 167.64 cm [facility] Work Phone: [facility] 03-05-2024 19:58-0400 Body weight 136.55 kg [facility] Work Phone: [facility] 02-26-2024 19:50-0400 Body height 167.64 cm Services [facility] Work Phone: [facility] 02-26-2024 19:50-0400 Body temperature 97.8 [degF] Services [facility] Work Phone: [facility] 02-26-2024 19:50-0400 Body weight 136.98 kg [facility] Work Phone: [facility] 02-26-2024 19:50-0400 Diastolic blood pressure 91 mm[Hg] [facility] Work Phone: [facility] 02-26-2024 19:50-0400 Heart rate 103 /min [facility] Work Phone: [facility] 02-26-2024 19:50-0400 Respiratory rate 16 /min [facility] Work Phone: [facility] 02-26-2024 19:50-0400 SaO2% (BldA) [Mass fraction] 96 % [facility] Work Phone: [facility] 02-26-2024 19:50-0400 Systolic blood pressure 144 mm[Hg] Services [facility] Work Phone: [facility] 02-23-2024 14:01-0400 Body mass index (BMI) [Ratio] 48.76 kg/m2 Mena Ann PA Work Phone: [facility] 02-23-2024 14:01-0400 Body weight 137.04 kg Mena Marissa PA Work Phone: [facility] 02-23-2024 14:01-0400 Diastolic blood pressure 82 mm[Hg] Mena Ann PA Work Phone: [facility] 02-23-2024 14:01-0400 Systolic blood pressure 128 mm[Hg] Mena Ann PA Work Phone: [facility] 10-06-2023 17:42-0400 Body height 167.64 cm [facility] Work Phone: [facility] 10-06-2023 17:42-0400 Body temperature 98.3 [degF] [facility] Work Phone: [facility] 10-06-2023 17:42-0400 Body weight 134 kg Services [facility] Work Phone: [facility] 10-06-2023 17:42-0400 Diastolic blood pressure 94 mm[Hg] [facility] Work Phone: [facility] 10-06-2023 17:42-0400 Heart rate 98 /min Services [facility] Work Phone: [facility] 10-06-2023 17:42-0400 Respiratory rate 18 /min Services [facility] Work Phone: [facility] 10-06-2023 17:42-0400 SaO2% (BldA) [Mass fraction] 100 % Services [facility] Work Phone: [facility] 10-06-2023 17:42-0400 Systolic blood pressure 142 mm[Hg] Services [facility] Work Phone: [facility] 09-17-2023 14:22-0400 Body height 167.6 cm Anna Ortiz [facility] 09-17-2023 14:22-0400 Body mass index (BMI) [Ratio] 47.61 kg/m2 Anna Ortiz [facility] 09-17-2023 14:22-0400 Body weight 133.81 kg Anna Ortiz [facility] 08-20-2023 13:05-0400 Body height 167.6 cm Tonya Senior APRN.LOT WORKER Work Phone: [facility] 08-20-2023 13:05-0400 Body weight 133.81 kg Tonya Senior APRN.LOT WORKER Work Phone: [facility] 08-07-2023 15:23-0400 Body height 168.91 cm Services [facility] Work Phone: [facility] 08-07-2023 15:23-0400 Body mass index (BMI) [Ratio] 46.9 kg/m2 Services [facility] Work Phone: [facility] 08-07-2023 15:23-0400 Body weight 133.89 kg Services [facility] Work Phone: [facility] 08-07-2023 15:23-0400 Diastolic blood pressure 83 mm[Hg] Services [facility] Work Phone: [facility] 08-07-2023 15:23-0400 Heart rate 101 /min Services [facility] Work Phone: [facility] 08-07-2023 15:23-0400 Respiratory rate 18 /min Services [facility] Work Phone: [facility] 08-07-2023 15:23-0400 SaO2% (BldA) [Mass fraction] 98 % Services [facility] Work Phone: [facility] 08-07-2023 15:23-0400 Systolic blood pressure 120 mm[Hg] Services [facility] Work Phone: [facility] 06-13-2023 11:00-0500 Body height 168.28 cm Nicholas ConforMIS Other [facility] 06-13-2023 11:00-0500 Body mass index (BMI) [Ratio] 48.53 kg/m2 Nicholas ConforMIS Other [employer] Other 06-13-2023 11:00-0500 Body weight 137.44 kg STEARCLEAR Other [employer] Other 06-13-2023 11:00-0500 Body weight 137.43 kg Services [facility] Phone: [facility] 06-13-2023 11:00-0500 Diastolic blood pressure 82 mm[Hg] Nicholas ConforMIS Other [facility] 06-13-2023 11:00-0500 Respiratory rate 18 /min [employer] Other [employer] Other 06-13-2023 11:00-0500 SaO2% (BldA) [Mass fraction] 97 % [employer] Other [employer] Other 06-13-2023 11:00-0500 Systolic blood pressure 120 mm[Hg] Nicholas ConforMIS Other [facility] 01-08-2023 10:45-0400 Body height 168.28 cm Nicholas Michaels Other [employer] Other 01-08-2023 10:45-0400 Body mass index (BMI) [Ratio] 52.89 kg/m2 Nicholas Michaels Other [employer] Other 01-08-2023 10:45-0400 Body weight 149.78 kg Nicholas Michaels Other [employer] Other 01-08-2023 10:45-0400 Diastolic blood pressure 81 mm[Hg] Nicholas Michaels Other [employer] Other 01-08-2023 10:45-0400 Respiratory rate 18 /min Nicholas Michaels Other [employer] Other 01-08-2023 10:45-0400 SaO2% (BldA) [Mass fraction] 97 % Nicholas Michaels Other [employer] Other 01-08-2023 10:45-0400 Systolic blood pressure 122 mm[Hg] Nicholas Michaels Other [employer] Other 06-18-2022 16:57-0500 Body height 167.64 cm Services [facility] Work Phone: [facility] 06-18-2022 16:57-0500 Body weight 157 kg Services [facility] Work Phone: [facility] 06-18-2022 16:56-0500 Body temperature 98.3 [degF] Services [facility] Work Phone: [facility] 06-18-2022 16:56-0500 Diastolic blood pressure 67 mm[Hg] Services [facility] Work Phone: [facility] 06-18-2022 16:56-0500 Heart rate 95 /min [facility] Work Phone: [facility] 06-18-2022 16:56-0500 Respiratory rate 20 /min [facility] Work Phone: [facility] 06-18-2022 16:56-0500 SaO2% (BldA) [Mass fraction] 97 % [facility] Work Phone: [facility] 06-18-2022 16:56-0500 Systolic blood pressure 158 mm[Hg] [facility] Work Phone: [facility] 12-02-2021 20:26-0400 Body height 167.64 cm [facility] Work Phone: [facility] 12-02-2021 20:26-0400 Body temperature 98.2 [degF] [facility] Work Phone: [facility] 12-02-2021 20:26-0400 Body weight 144.24 kg [facility] Work Phone: [facility] 12-02-2021 20:26-0400 Diastolic blood pressure 89 mm[Hg] [facility] Work Phone: [facility] 12-02-2021 20:26-0400 Heart rate 104 /min [facility] Work Phone: [facility] 12-02-2021 20:26-0400 Respiratory rate 20 /min [facility] Work Phone: [facility] 12-02-2021 20:26-0400 SaO2% (BldA) [Mass fraction] 96 % [facility] Work Phone: [facility] 12-02-2021 20:26-0400 Systolic blood pressure 156 mm[Hg] [facility] Work Phone: [facility] 06-19-2020 11:10-0500 BMI (Body Mass Index) 46.65 kg/m2 Bayron Bibiana QV-GKXAH-Mcggkj 310 [facility] Work Phone: 06-19-2020 11:10-0500 Body weight 131.09 kg Bayron Mccarty MN-ITTKG-Svlvgd 310 [facility] Work Phone: 06-19-2020 11:10-0500 BSA (Body Surface Area) 2.34 m2 Bayron Mccarty SY-OJMJF-Nobeso 310 [facility] Work Phone: 06-19-2020 11:10-0500 Height 167.64 cm Bayron Mccarty XJ-XRNNS-Itygbk 310 [facility] Work Phone: 06-19-2020 11:10-0500 1 1 Bayron Mccarty HK-ZKFRO-Qgjkwo 310 IV[facility] Work Phone: Comment on above: 06-19-2020 11:10-0500 0 1 Bayron Mccarty NW-RBHMQ-Hotinr 310 [facility] Work Phone: Comment on above: Para Pain Scale Encounters Encounter Date Encounter Type Care Provider Facility Start: 03-05-2024 End: 03-05-2024 Emergency department patient visit Services [facility] Work Phone: [facility] Work Phone: Start: 03-01-2024 End: 03-01-2024 Orders Only Veda Hayes RN Maternal- Medic ine at [facility] Comment on above: Encounter for follow -up ultrasound of anatomy (Primary Dx); History of pre-eclampsia in prior , currently ; History of delivery, currently ; Obesity affecting in second trimester, unspecified obesity type Start: 02-26-2024 End: 02-26-2024 Emergency department patient visit Services [facility] Work Phone: [facility] Work Phone: Start: 02-23-2024 End: 02-23-2024 Bamboo flowsheet Mena CARRILLO Work Phone: [facility] Start: 02-23-2024 End: 02-23-2024 Bamboo flowsheet Mena CARRILLO Work Phone: [facility] Start: 02-23-2024 End: 02-23-2024 Office outpatient visit 15 minutes Mena CARRILLO Work Phone: [facility] Comment on above: 25 weeks gestation o f ; Second trimester ; Diabetes mellitus screening; size inconsistent with dates; H/O premature delivery Start: 02-23-2024 End: 02-23-2024 ambulatory MENA ANN Not Available Start: 02-17-2024 End: 02-17-2024 ambulatory TACHO [facility] Start: 01-20-2024 End: 01-20-2024 ambulatory TACHO AMBER Not Available Start: 01-19-2024 End: 01-19-2024 ambulatory TACHO [facility] Start: 12-23-2023 End: 12-23-2023 ambulatory MENA ANN Not Available Start: 11-25-2023 End: 11-25-2023 ambulatory TACHO AMBER Not Available Start: 10-30-2023 End: 10-30-2023 ambulatory TACHO AMBER Not Available Start: 10-09-2023 End: 10-09-2023 ambulatory LATONIA GREENE Facility:[facility] Start: 10-06-2023 End: 10-06-2023 Emergency department patient visit Services [facility] Work Phone: [facility] Work Phone: Start: 09-17-2023 End: 09-17-2023 ambulatory ANNA ORTIZ Facility:[facility] Start: 09-17-2023 End: 09-17-2023 Nutrition therapy Anna Ortiz RD Nutrition Therapy Comment on above: Obesity, Class III, BMI 40-49.9 (morbid obesity) (HCC) (Primary Dx); Dietary counseling Start: 09-17-2023 End: 09-17-2023 Telemedicine consultation with patient Anna Ortiz RD Nutrition Therapy Start: 09-15-2023 Admission to [facility] Tonya Senior APRN.LOT WORKER Work Phone: General Surgery Comment on above: Results Start: 09-15-2023 E-mail encounter dena torres caregiver Tonya Senior APRN.LOT WORKER Work Phone: General Surgery Start: 09-11-2023 Telephone encounter Tonya Senior APRN.LOT WORKER Work Phone: General Surgery Comment on above: Results Start: 09-08-2023 End: 09-08-2023 ambulatory TONYA SENIOR Facility:[facility] Start: 09-05-2023 End: 09-05-2023 ambulatory TONYA SENIOR Facility:[facility] Start: 09-01-2023 End: 09-02-2023 ambulatory LATONIA GREENE Facility:[facility] Start: 09-01-2023 End: 09-01-2023 Admission to same day surgery center Latonia Greene PhD Work Phone: General Surgery BMI PSYL Comment on above: NO SHOW (Primary Dx) Start: 09-01-2023 End: 09-01-2023 Telemedicine consultation with patient Latonia Greene PhD Work Phone: General Surgery BMI PSYL Start: 08-20-2023 Admission to same da y surgery center Tonya Senior WAREHOUSE PRODUCTION WORKER.LOT WORKER Work Phone: General Surgery Comment on above: Welcome to Bariatric Surgery Start: 08-20-2023 E-mail encounter dena torres caregiver Tonya Senior APRN.LOT WORKER Work Phone: [place] [address] Start: 08-20-2023 End: 08-20-2023 ambulatory Tonya Senior WAREHOUSE PRODUCTION WORKER.LOT WORKER Work Phone: General Surgery Comment on above: Body mass index (BMI ) of 50-59.9 in adult (HCC) (Primary Dx); Angel's thyroiditis; High blood cholesterol Start: 08-20-2023 End: 08-20-2023 Telemedicine consultation with patient Tonya Senior WAREHOUSE PRODUCTION WORKER.LOT WORKER Work Phone: [facility] Start: 08-07-2023 End: 08-07-2023 ambulatory [facility] Work Phone: [facility] Work Phone: Start: 08-07-2023 End: 08-07-2023 Patient encounter procedure [facility] Work Phone: [facility] Work Phone: Start: 06-13-2023 Follow-up encounter Nicholas Osuna [facility] Start: 06-13-2023 Registered Recurring [facility] Work Phone: [facility] Work Phone: Start: 06-13-2023 End: 06-13-2023 ambulatory Nicholas Michaels [employer] Other Start: 06-13-2023 End: 06-13-2023 Patient encounter procedure Services [facility] Work Phone: [facility]- Start: 01-08-2023 End: 01-08-2023 ambulatory Nicholas Michaels Other [employer] Other Start: 01-08-2023 Nutrition therapy Nicholas Michaels [facility] Start: 06-18-2022 End: 06-18-2022 Emergency department patient visit Services [facility] Work Phone: [facility] Work Phone: Start: 06-03-2022 End: 06-03-[address] TACHO MENENDEZ Facility: Start: 12-02-2021 End: 12-02-2021 Emergency department patient visit Services [facility] Work Phone: [facility] Start: 07-08-2020 Patient encounter procedure Bayron BARKER-Risman [facility] Work Phone: Start: 07-05-2020 Patient encounter procedure Bayron PARIKHOBGYN-Risman 310 IV[facility] Work Phone: Start: 06-19-2020 Patient encounter procedure Bayron PARIKHOBGYN-Risman 310 [facility] Work Phone: Start: 04-14-2020 Patient encounter procedure Bayron Anaya [facility] Work Phone: Start: 03-28-2020 Patient encounter procedure Bayron Anaya [facility] Work Phone: Start: 2020 Patient encounter procedure Bayron Anaya [facility] Work Phone: Start: 01-24-2020 Patient encounter procedure Bayron Anaya [facility] Work Phone: Start: 08-01-2017 End: 08-02-2017 Ambulatory Agustin Carrasquillo Facility:[id number] Start: 07-14-2017 End: 07-15-2017 Ambulatory Agustin Neida Facility:[id number] Procedures Date Procedure Procedure Detail Performing Clinician Start: 03-05-2024 Plain chest X-ray Servi [facility] Work Phone: Start: 03-05-2024 Respiratory Panel (PCR) Services [facility] [employer] Phone: Start: 03-05-2024 Streptococcus pyogen es antigen assay Services [facility] [employer] Phone: Start: 02-26-2024 Streptococcus pyogen es antigen assay Services [facility] Phone: Start: 02-23-2024 Urnls dip stick/tabl et rgnt non-auto w/o micrscp Mena CARRILLO Work Phone: Start: 12-23-2023 Microscopic observat ion [Identifier] in Cervix by Cyto stain Mena CARRILLO Work Phone: Start: 07-06-2020 Antibody screen Comment on above: Performed By: #### T +S #### [facility] [address] [place] [address] Start: 07-05-2020 IO Ultrasound, limit ed pelvic, follicle monitoring Bayron Mccarty Start: 06-26-2020 IO Ultrasound, limit ed pelvic, follicle monitoring Bayron Mccarty Start: 05-10-2020 Assay of progesterone J oslissette Mccarty Adenoid excision Bayron Find [place] Cholecystectomy Bayron Findl ey SARS Antigen (LFIA) Services [facility] Work Phone: Plan of Treatment Date Care Activity Detail Author Start: 12-22-2028 Screening for malign ant neoplasm of cervix [facility] Start: 12-22-2026 Screening for malign ant neoplasm of cervix Pap Smear [facility] Start: 03-01-2025 End: 03-01-2025 US MFM with or without consult US MFM with or without consult Imaging Routine Encounter for follow-up ultrasound of anatomy History of pre-eclampsia in prior , currently History of delivery, currently Obesity affecting in second trimester, unspecified obesity type Expected: 03/01/2025 (Approximate), Expires: 03/01/2025 [facility] Work Phone: Comment on above: Expected: 03/01/2025 (Approximate), Expires: 03/01/2025 Start: 01-18-2025 Adult BMI Screening Adult BMI Screen ing [facility] Start: 01-18-2025 Tobacco Screening Tobacco Screening [facility] Start: 03-30-2024 End: 03-30-2024 Patient encounter procedure 03/30/2024 2:45 PM EST Appointment [facility] - Ultrasound [address] [place] [id number] [facility] - Ultrasound Start: 03-16-2024 End: 03-16-2024 Patient encounter procedure 03/16/2024 1:30 PM EST Routine [facility] [address] [place] [id number] Tacho Menendez DO [address] [place] [address] [facility] Start: 02-23-2024 End: 02-22-2025 CBC panel - Blood by Automated count CBC Lab Routine Diabetes mellitus screening Expected: 02/23/2024 (Approximate), Expires: 02/22/2025 [facility] Work Phone: Comment on above: Expected: 02/23/2024 (Approximate), Expires: 02/22/2025 Start: 02-23-2024 End: 02-22-2025 Measurement of glucose 1 hour after glucose challenge for glucose tolerance test Glucose tolerance, 1 hour Lab Routine Diabetes mellitus screening Expected: 02/23/2024 (Approximate), Expires: 02/22/2025 [facility] Comment on above: Expected: 02/23/2024 (Approximate), Expires: 02/22/2025 Start: 02-23-2024 End: 02-22-2025 US for US OB SCAN FOR GROWTH Imaging Routine size inconsistent with dates H/O premature delivery Expected: 02/23/2024 (Approximate), Expires: 02/22/2025 [facility] Healthcare Comment on above: Expected: 02/23/2024 (Approximate), Expires: 02/22/2025 Start: 02-23-2024 End: 02-23-2024 Patient encounter procedure 02/23/2024 1:40 PM EDT Routine [facility] [address] [place] [address] Mena Ann PA [address] [place], [facility] Arrived [facility] Comment on above: Arrived Start: 01-11-2024 COVID-19 Vaccine ( season) COVID-19 Vaccine ( season) [facility] Start: 01-11-2024 Influenza vaccination N [facility] Start: 09-17-2023 End: 09-17-2023 Nutrition therapy 09/17/2023 2:30 PM EDT [facility] Nutrition Therapy [address] [id number] Anna Ortiz, RD [address] [place] [address] Red/Davis/0 [place] Nutrition Therapy Comment on above: Red/Davis/0 Diet/ [place] Start: 09-12-2023 End: 09-12-2023 Admission to same day surgery center 09/12/2023 3:30 PM EDT [facility] General Surgery [address] [place] [address] Joo Bradley MD [address] [place] [address] Red/Kirk/0 Diet/[place] General Surgery Comment on above: Red/Kirk/0 Diet/Anth em Start: 09-05-2023 End: 09-05-2023 ambulatory 09/05/2023 11:45 AM EDT Results Only [facility] [address] [place] [address] [place] [address] [facility] Start: 08-20-2023 End: 11-19-2023 25-hydroxyvitamin D3 [Mass/volume] in Serum or Plasma VITAMIN D 25 HYDROXY Lab Routine Body mass index (BMI) of 50-59.9 in adult (HCC) Expected: 08/20/2023, Expires: 11/19/2023 [facility] Work Phone: Comment on above: Expected: 08/20/2023 , Expires: 11/19/2023 Start: 08-20-2023 End: 11-19-2023 CBC W Auto Differential panel - Blood COMPLETE BLOOD COUNT AND DIFFERENTIAL Lab Routine Body mass index (BMI) of 50-59.9 in adult (HCC) Expected: 08/20/2023, Expires: 11/19/2023 [facility] Work Phone: Comment on above: Expected: 08/20/2023 , Expires: 11/19/2023 Start: 08-20-2023 End: 11-19-2023 Cobalamin (Vitamin B12) [Mass/volume] in Serum or Plasma VITAMIN B12 Lab Routine Body mass index (BMI) of 50-59.9 in adult (HCC) Expected: 08/20/2023, Expires: 11/19/2023 [facility] Work Phone: Comment on above: Expected: 08/20/2023 , Expires: 11/19/2023 Start: 08-20-2023 End: 11-19-2023 Comprehensive metabolic 2000 panel - Serum or Plasma COMPREHENSIVE METABOLIC PANEL Lab Routine High blood cholesterol Body mass index (BMI) of 50-59.9 in adult ([facility]) Expected: 08/20/2023, Expires: 11/19/2023 [facility] Work Phone: Comment on above: Expected: 08/20/2023 , Expires: 11/19/2023 Start: 08-20-2023 End: 11-19-2023 Ferritin [Mass/volume] in Serum or Plasma FERRITIN Lab Routine Body mass index (BMI) of 50-59.9 in adult ([facility]) Expected: 08/20/2023, Expires: 11/19/2023 [facility] Work Phone: Comment on above: Expected: 08/20/2023 , Expires: 11/19/2023 Start: 08-20-2023 End: 11-19-2023 Folate [Mass/volume] in Serum or Plasma FOLATE, SERUM Lab Routine Body mass index (BMI) of 50-59.9 in adult ([facility]) Expected: 08/20/2023, Expires: 11/19/2023 [facility] Work Phone: Comment on above: Expected: 08/20/2023 , Expires: 11/19/2023 Start: 08-20-2023 End: 11-19-2023 Helicobacter pylori IgG Ab [Presence] in Serum or Plasma by Immunoassay H PYLORI IGG AB Lab Routine Body mass index (BMI) of 50-59.9 in adult ([facility]) Expected: 08/20/2023, Expires: 11/19/2023 [facility] Work Phone: Comment on above: Expected: 08/20/2023 , Expires: 11/19/2023 Start: 08-20-2023 End: 11-19-2023 Hemoglobin A1c in Blood HEMOGLOBIN A1C Lab Routine Body mass index (BMI) of 50-59.9 in adult ([facility]) Expected: 08/20/2023, Expires: 11/19/2023 [facility] Work Phone: Comment on above: Expected: 08/20/2023 , Expires: 11/19/2023 Start: 08-20-2023 End: 11-19-2023 Iron and Iron binding capacity panel - Serum or Plasma IRON AND TIBC Lab Routine Body mass index (BMI) of 50-59.9 in adult ([facility]) Expected: 08/20/2023, Expires: 11/19/2023 [facility] Work Phone: Comment on above: Expected: 08/20/2023 , Expires: 11/19/2023 Start: 08-20-2023 End: 11-19-2023 Lipid 1996 panel - Serum or Plasma LIPID PANEL BASIC Lab Routine High blood cholesterol Body mass index (BMI) of 50-59.9 in adult ([facility]) Expected: 08/20/2023, Expires: 11/19/2023 [facility] Work Phone: Comment on above: Expected: 08/20/2023 , Expires: 11/19/2023 Start: 08-20-2023 End: 11-19-2023 Natriuretic peptide.B prohormone N-Terminal [Mass/volume] in Serum or Plasma NT PRO BNP Lab Routine Body mass index (BMI) of 50-59.9 in adult ([facility]) Expected: 08/20/2023, Expires: 11/19/2023 [facility] Work Phone: Comment on above: Expected: 08/20/2023 , Expires: 11/19/2023 Start: 08-20-2023 End: 11-19-2023 NICOTINE & METAB, UR NICOTINE & METAB, UR Lab Routine Body mass index (BMI) of 50-59.9 in adult ([facility]) Expected: 08/20/2023, Expires: 11/19/2023 [facility] Work Phone: Comment on above: Expected: 08/20/2023 , Expires: 11/19/2023 Start: 08-20-2023 End: 11-19-2023 Thyrotropin [Units/volume] in Serum or Plasma THYROID STIMULATING HORMONE Lab Routine Angel's thyroiditis Body mass index (BMI) of 50-59.9 in adult ([facility]) Expected: 08/20/2023, Expires: 11/19/2023 [facility] Work Phone: Comment on above: Expected: 08/20/2023 , Expires: 11/19/2023 Start: 08-20-2023 End: 11-19-2023 TOXICOLOGY SCREEN, ROUTINE URINE TOXICOLOGY SCREEN, ROUTINE URINE Lab Routine Body mass index (BMI) of 50-59.9 in adult ([facility]) Expected: 08/20/2023, Expires: 11/19/2023 [facility] Work Phone: Comment on above: Expected: 08/20/2023 , Expires: 11/19/2023 Start: 08-20-2023 End: 11-19-2023 VITAMIN B1 (THIAMINE), WHOLE BLOOD VITAMIN B1 (THIAMINE), WHOLE BLOOD Lab Routine Body mass index (BMI) of 50-59.9 in adult (HCC) Expected: 08/20/2023, Expires: 11/19/2023 [facility] Work Phone: Comment on above: Expected: 08/20/2023 , Expires: 11/19/2023 Start: 05-12-2023 Behavioral Health Screening Behavioral Health Screening [facility] Start: 01-10-2023 Covid-19 Vaccine ( season) Covid-19 Vaccine () [facility] Start: 12-02-2021 Plain chest X-ray XR chest 1V portab [facility] Start: 12-02-2021 XR Chest Single view [facility] Work Phone: Start: 2021 Screening for malign ant neoplasm of cervix HPV Testing [facility] Start: 2012 Screening for malign ant neoplasm of cervix Pap Testing [facility] Start: 2010 Hepatitis B Vaccine (1 of 3 - 19+ 3-dose series) Hepatitis B Vaccine (1 of 3 - 19+ 3-dose series) [facility] Start: 2009 Adult BMI Follow Up Plan Adult BMI Follow Up Plan [facility] Start: 2009 HIV screening HIV Screening [facility] Start: 2003 Depression Screening Depression [facility] Start: 2002 DTaP,Tdap and Td Vaccines (6 - Tdap) DTaP,Tdap and Td Vaccines (6 - Tdap) [facility] Start: 2002 Urine microalbumin profile DTaP,Tdap,Td Vaccine (6 - Tdap) [facility] End: 08-19-2024 ECG COMPLETE ECG COMPLETE ECG Routine Body mass index (BMI) of 50-59.9 in adult (HCC) 1 Occurrences starting 08/20/2023 until 08/19/2024 [facility] Work Phone: Comment on above: 1 Occurrences starti ng 08/20/2023 until 08/19/2024 Patient Education [facility] Work Phone: Patient referral [facility] Work Phone: End: 09-18-2024 US Abdomen RUQ US ABD RIGHT UPPER QUADRANT Radiology Routine Body mass index (BMI) of 50-59.9 in adult ([facility]) 1 Occurrences starting 08/20/2023 until 09/18/2024 [facility] Work Phone: Comment on above: 1 Occurrences starti ng 08/20/2023 until 09/18/2024 End: 09-18-2024 XR Chest PA and Lateral XR CHEST 2V FRONTAL/LAT Radiology Routine Body mass index (BMI) of 50-59.9 in adult ([facility]) 1 Occurrences starting 08/20/2023 until 09/18/2024 [facility] Work Phone: Comment on above: 1 Occurrences starti ng 08/20/2023 until 09/18/2024 [id number] 310 [facility] Work Phone: [facility] NEGATED: Highlighted row has been ruled out! Planned Goals not documented [id number] 310 [facility] Work Phone: Immunizations Immunization Date Immunization Notes Care Provider Fa cili 03-11-2023 influenza virus vacc ine, unspecified formulation Mena CARRILLO Work Phone: [facility] Payers Date Payer Category Payer Self-pay [id number] 2022 Medicaid [id number] 2022 Medicaid [id number] 1991 Unknown [id number] 3 1991 Unknown [id number] 86 1991 Unknown [id number] [id number] 86 1991 Unknown [id number] [id number] 86 1991 Unknown [id number] 59 1991 Unknown [id number] [id number] 59 1991 Unknown [id number] [id number] 59 1991 Unknown [id number] [id number] 59 1991 Unknown [id number] [id number] 59 1959 Medicaid [id number] Private Health Insurance [facility] [id number] Unknown [id number] Unknown Regular Insurance [id number] Unknown [employer] [id number] Unknown Regular Auto/Medical [id number] Unknown [id number] 1 Unknown [id number] [id number] 1 Unknown [id number] [id number] 1 Unknown [id number] 1 Social History Date Type Detail Facility Start: 12-02-2021 End: 03-05-2024 Tobacco smoking status NHIS Never smoked tobacco (finding) [facility] Start: 1990 Sex Assigned At Female F [facility] Start: 08-20-2023 End: 01-19-2024 Sex Assigned At [place] [facility] [facility] Start: 08-20-2023 End: 11-28-2023 Tobacco use and exposure Smokeless tobacco non-user [facility] Work Phone: Start: 08-20-2023 End: 02-23-2024 Alcohol intake Current drinker of alcohol (finding) [facility] Start: 08-20-2023 End: 01-19-2024 History of Social function [facility] National Score (1-100), lower number is lower risk 86 [facility] Start: 08-20-2023 Alcohol Comment occ [facility] Start: 1990 Sex Assigned At Not on file [facility] Start: 08-26-2023 Gender identity Identifies as female gender (finding) [facility] Start: 08-26-2023 Sexual orientation Heterosexual (fin ding) [facility] Start: 09-14-2023 [facility] How often to you hav e a drink containing alcohol? Monthly or less [facility] How many standard drinks containing alcohol do you have on a typical day? 1 or 2 [facility] How often do you hav e 6 or more drinks on 1 occasion? Never [facility] Start: 05-17-2023 Education 13 [facility] Start: 05-17-2023 Alcohol Comment caffeine: occa sional chocolate [facility] Start: 01-19-2024 Alcoholic beverage intake Ex-drinker (finding) [facility] Start: 12-13-2014 Sex Female (finding) [facility] NEGATED: Highlighted row - - [id number] 310 [facility] Work Phone: Functional Status Date Assessment Result Facility NEGATED: Highlighted row Functional performance Functional status health issues are not documented Disease [id number] 310 [facility] Work Phone: Mental Status Date Assessment Result Facility NEGATED: Highlighted row Cognitive function [Interpretation] Cognitive status health issues are not documented Disease [id number] 310 [facility] Work Phone: Clinical Notes 01-08-2023 to 02-23-2024 GERARDO Vazquez - 02/23/2024 1:40 PM EDTTelephone Encounter - Meme Castrejon - 09/22/2023 9:36 AM EDTTelephone Encounter - Meme Castrejon - 09/22/2023 9:36 AM EDTPatient Instructions Note Date & Type Note Facility 02-23-2024 History of Presen t illness Narrative Reason for Appointment: Patient ID: Jaleesa Arrieta is a 33 y.o. female who presents for Routine Visit Patient presents today for Return OB appointment. MEDICATIONS Current Outpatient Medications Medication Instructions levothyroxine (Synthroid, Levoxyl) 50 MCG tablet TAKE 1/2 TABLET BY MOUTH EVERY MORNING BEFORE A MEAL magnesium oxide (MAG-OX) 400 mg, Oral, Daily MV & Min w/FA-DHA ( Gummies) 0.18-25 MG chewable tablet 25 mg, Oral, Daily ALLERGIES No Known Allergies PROBLEMS Active Ambulatory Problems Diagnosis Date Noted No Active Ambulatory Problems Resolved Ambulatory Problems Diagnosis Date Noted No Resolved Ambulatory Problems Past Medical History: Diagnosis Date Abdominal pain Breast pain, right Cholelithiasis Encounter for cervical smear to confirm findings of recent normal smear following initial abnormal smear Angel's disease (CMS/HCC) Hypothyroidism (CMS/HCC) Morbid obesity (CMS/HCC) Morbid obesity with BMI of 50.0-59.9, adult (CMS/[facility]) Vaginal delivery HISTORY PAST MEDICAL HISTORY SOCIAL HISTORY Past Medical History: Diagnosis Date Abdominal pain Breast pain, right Cholelithiasis Encounter for cervical smear to confirm findings of recent normal smear following initial abnormal smear Angel's disease (CMS/HCC) Hypothyroidism (CMS/HCC) Morbid obesity (CMS/HCC) Morbid obesity with BMI of 50.0-59.9, adult (CMS/HCC) Vaginal delivery Social History Tobacco Use Smoking status: Never Smokeless tobacco: Never Substance Use Topics Alcohol use: Yes Comment: caffeine: occasional chocolate Drug use: Never FAMILY HISTORY Family History Problem Relation Name Age of Onset Diabetes Mother Hypertension Mother Diabetes Father No Known Problems Sister No Known Problems Brother Suicidality Maternal Grandmother Breast cancer Maternal Grandmother Mental illness Maternal Grandmother Heart disease Maternal Grandfather Hypertension Maternal Grandfather Diabetes Maternal Grandfather Heart disease Paternal Grandmother Other (MVA) Paternal Grandfather Breast cancer Maternal Great-Grandmother Ovarian cancer Maternal Great-Grandmother Colon cancer Neg Hx SURGICAL HISTORY Past Surgical History: Procedure Laterality Date ADENOIDECTOMY @ age 6 or 7 CHOLECYSTECTOMY 07/20/2019 ([place]oxana) ERCP 06/2019 OTHER SURGICAL HISTORY 2020 IUI 07/10/20 [facility] SALPINGECTOMY Left 2011 ectopic REVIEW OF SYSTEMS Review of Systems: Review of Systems Constitutional: Negative. HENT: Negative. Eyes: Negative. Respiratory: Negative. Cardiovascular: Negative. Gastrointestinal: Negative. Genitourinary: Negative. Musculoskeletal: Negative. Skin: Negative. Neurological: Negative. All other systems reviewed and are negative. Hematological: Negative. Endocrine: Negative. Allergic/Immunologic: Negative. OBJECTIVE Objective: Physical Exam Constitutional: Appearance: Normal appearance. She is well-developed. Cardiovascular: Rate and Rhythm: Normal rate and regular rhythm. Pulmonary: Effort: Pulmonary effort is normal. Breath sounds: Normal breath sounds. Abdominal: General: Bowel sounds are normal. There is no distension. Palpations: Abdomen is soft. Tenderness: There is no abdominal tenderness. There is no guarding or rebound. Musculoskeletal: General: No swelling. Normal range of motion. Right lower leg: No edema. Left lower leg: No edema. Neurological: Mental Status: She is alert and oriented to person, place, and time. Skin: General: Skin is warm and dry. Psychiatric: Mood and Affect: Mood normal. Behavior: Behavior normal. Vitals and nursing note reviewed. Exam conducted with a coordinate measuring machine operator present. Vitals: Estimated body mass index is 48.76 kg/m as calculated from the following: Height as of 08/26/22: 5' 6 . Weight as of this encounter: 302 lb 1.9 oz. BP: 128/82 Patient's last menstrual period was 08/24/2023. ASSESSMENT & PLAN ICD-10-CM 1. 25 weeks gestation of Z3A.25 POCT urinalysis dipstick manually resulted 2. Second trimester Z34.92 POCT urinalysis dipstick manually resulted 3. Diabetes mellitus screening Z13.1 CBC Glucose tolerance, 1 hour Return OB: Patient presents today for a routine obstetrics appointment. Patient is currently 25w1d . Patient states she is doing well but has complaints of being tired due to current . Patient has verbalizes frequent movement. Orders Placed This Encounter Procedures CBC Glucose tolerance, 1 hour POCT urinalysis dipstick manually resulted Follow Up: Patient is to return to office in 2 week for routine OB appointment. Documented by Jenise Rainey LPN on behalf of: GERARDO Vazquez documented in this encounter [facility] 10-09-2023 Note HNO ID: [id number] Author: LATONIA GREENE, PhD Service: ? Author Type: Psychologist Type: Progress Notes Filed: 10/17/2023 11:09 Note Text: [facility] BARIATRIC SURGERY BEHAVIORAL HEALTH EVALUATION BMI Surgical Pathway Visit type: Psychology Visit DATE OF SERVICE: October 09, 2023 TIME OF SERVICE: 1:00 PM - 2:00 PM COST CENTER: [facility] CPT CODE: - [id number] Virtual Psych Diagnostic Eval BILLING CODE: ENDO PSYL MAIN Jerel DATE OF FIRST SERVICE THIS CYCLE: October 09, 2023 SESSION #: 1 I have communicated my name and active licensure. The patient's identity and physical location (see below) were verified at the time of this visit. Either the patient or their legal manufacturers service representative has been informed of the risks and benefits of -- and alternatives to -- treatment through a remote evaluation and consents to proceed with the evaluation remotely. This evaluation is NOT intended for forensic, disability or child custody purposes. The patient e-signed a copy of the consent form via [employer] and the [facility] insurance benefits, fees for service, emergency [...] in case of emergency and/or disconnection. [address] [facility] [place] [address] ([facility], was mother) Alternate Optical Glass Wet Inspector Bibi Arrieta (Mother) [phone] (Home Phone) Patient identified the following plan to follow in case of emergency: Go to emergency room (nearest is [facility]) or call 911. IDENTIFYING INFORMATION: Ms. Jaleesa Arrieta is a 33 year old female. She was referred by Dr. Davis. Ms. Arrieta is seeking gastric sleeve surgery for class 3 obesity. COLLATERAL PARTIES PRESENT: child. MOTIVATION FOR SURGERY / UNDERSTANDING OF PROCEDURE / EXPECTATIONS: Ms. Arrieta notes she is motivated for surgery by [...] and increased activity. CAPACITY TO CONSENT: Ms. Arrieta evidences the following concerns regarding capacity to [...] ALLERGIES Not on File EATING/WEIGHT HISTORY: Ms. Arrieta was overweight as a child. Her weight [...] pt has l (more content not included)... [facility] 09-22-2023 Telephone encounter Note Can not schedule patient as there is already a patient scheduled for that day and time. Please advise. Thanks Meme Castrejon [facility] 09-22-2023 Telephone encounter Note ----- Message from Anna Ortiz RD sent at 09/17/2023 3:17 PM EDT ----- Regarding: virtual follow up Please schedule for a virtual up 10/16 at 1. The patient is aware, no call needed. Thank you! Anna [facility] 09-22-2023 Miscellaneous Notes Can not schedule patient [...] levels, no answer, left vm. Tonya Senior APRN.LOT WORKER documented in this encounter [facility] 09-17-[address] - 09/17/2023 3:12 PM EDT 1. Read Nutritional Guidelines Section of Your Guide to Surgery by next session [email or web address]?la=[email or web address] 2. Do not skip [...] full-liquid diet. Examples: Slim Fast Advanced Nutrition [place] Breakfast Essentials Light Start Drink mixed with [...] in the AM, 2 in the PM) www.[email or web address].[email or web address] - [employer]: 1 Bariatric Multivitamin and Calcium Citrate (total of 3682-4767 mg/day) * take calcium citrate separately from Multivitamin with iron at least 2 hours apart and 4 hours apart from additional calcium www.[email or web address].[email or web address] - Bariatric Choice: 4 Complete Multivitamins (chewables) per day Www.bariatricchoSingspiel.[email or web address] - Bariatric Advantage: 2 Multivitamins and 3 Calcium Citrate Chewables per day * take calcium citrate separately from Multivitamin with iron at least 2 hours apart and 4 hours apart from additional calcium Www.bariatricadvantage.[email or web address] Start practicing eating slowly, chewing each bite of food 20-30 x per bite, making meals last 20-30 minutes, separatign food and fluids by 30 minutes . Have all meals and snacks at the table with no distractions. Make placemat for reminders; work towards normal sleep/wake pattern Pre-op goal weight: 281 pounds Protein needs: 85 grams per day documented in this encounter [facility] 09-17-2023 Note HNO ID: [id number] Author: ANNA ORTIZ RD Service: ? Author Type: Registered Dietitian Type: Progress Notes Filed: 09/17/2023 15:19 Note Text: [facility] Nutrition Therapy: Virtual Consult - Initial Assessment I have communicated my name and active licensure. The patient?s identity and physical location were verified at the time of this visit. Either the patient or their legal manufacturers service representative has been informed of the risks [...] Your Guide to Surgery by next session [email or web address]/ [email or web address] 2. Do not skip [...] Examples: ? Slim Fast Advanced Nutrition ? [place] Breakfast Essentials ?Light Start? Drink mixed with [...] AM, 2 in the PM) www.bariatricfusion.com - [employer]: 1 Bariatric Multivitamin and Calcium Citrate (total of 7603-2115 mg/day) * take calcium citrate separately from Multivitamin with iron at least 2 hours apart and 4 hours apart from additional calcium www.procarenoArgil Data Corp.[employer] - Bariatric Choice: 4 Complete Multivitamins (chewables) [...] and using Phen (more content not included)... [facility] 09-17-2023 History of Presen t illness Narrative [facility] Nutrition Therapy: Virtual Consult - Initial Assessment I have communicated my name and active licensure. The patient s identity and physical location were verified at the time of this visit. Either the patient or their legal manufacturers service representative has been informed of the risks [...] Your Guide to Surgery by next session [email or web address] -/[email or web address]/ [email or web address]?la=[email or web address] 2. Do not skip [...] full-liquid diet. Examples: Slim Fast Advanced Nutrition [place] Breakfast Essentials Light Start Drink mixed with [...] AM, 2 in the PM) www.bariatricfusion.com - [employer]: 1 Bariatric Multivitamin and Calcium Citrate (total of 1984-9175 mg/day) * take calcium citrate separately from Multivitamin with iron at least 2 hours apart and 4 hours apart from additional calcium www.DesignMyNight - Bariatric Choice: 4 Complete Multivitamins (chewables) per day Www.bariatricchoSingspiel.[employer] - Bariatric Advantage: 2 Multivitamins and 3 Calcium Citrate Chewables per day * take calcium citrate separately from Multivitamin with iron at least 2 hours apart and 4 hours apart from additional calcium Www.bariatricadvantage.[employer] Start practicing eating slowly, chewing each bite [...] suggested by 180 Initial weight: 295 lbs. Newman body weight is 155 lbs. Excess body weight is 140 lbs. Goal weight pre-op is 281 lbs. Protein needs are estimated at 85gm (1.2 - protein/kg IBW) Patient meets the National Institutes of Health guidelines for weight loss surgery and has [employer] Insurance therefore is required to complete 0 [...] rolls, sandwich, chips Snack - slim Jims chlebronps c.vookies cheese crackers Beverages - water, juice [...] SIGNATURE: Anna Ortiz RD PATIENT NAME: Jaleesa Arrieta DATE: 09/17/2023 TIME: 2:25 PM documented in this encounter [facility] 09-11-2023 Telephone encounter Note Attempted to call pt, re: hypothyroid and low vitamin d levels, no answer, left vm. Tonya Senior APRN.LOT WORKER [facility] 09-01-2023 Note HNO ID: [id number] Author: LATONIA GREENE, PhD Service: ? Author Type: Psychologist Type: Progress Notes Filed: 09/01/2023 13:22 Note Text: [facility] Progress Note 09/01/2023 Billing code: Jerel Patient did not attend, cancel, or reschedule this appointment. Provider left HIPAA compliant voicemail and MyChart message with contact information to reschedule. Latonia Greene, PhD Clinical Psychologist [facility] 09-01-2023 History of Presen t illness Narrative [facility] Progress Note 09/01/2023 Billing code: Jerel Patient did not attend, cancel, or reschedule this appointment. Provider left HIPAA compliant voicemail and MyChart message with contact information to reschedule. Latonia Greene PhD Clinical Psychologist documented in this encounter [facility] 08-20-2023 Note HNO ID: [id number] Author: TONYA SENIOR APRN.LOT WORKER Service: ? Author Type: Nurse Practitioner Type: Progress Notes Filed: 08/20/2023 16:21 Note Text: have communicated my name and active licensure. The patient's identity and physical location were verified at the time of this visit. Either the patient or their legal manufacturers service representative has been informed of the risks and benefits of -- and alternatives to -- treatment through a remote evaluation and consents to proceed with the evaluation remotely. BMI MEDICAL CONSULT I have communicated my name and active licensure. The patient's identity and physical location were verified at the time of this visit. Either the patient or their legal manufacturers service representative has been informed of the risks [...] mass index (BMI) of 50-59.9 in adult ([facility]) 08/20/2023 Angel's thyroiditis 08/20/2023 High blood cholesterol [...] mass index (BMI) of 50-59.9 in adult ([facility]) - ICD9: V85.43, ICD10: Z68.43 (primary diagnosis) Weight decreasing - Behavioral intervention, - Medical nutrition therapy with dietitian, and - Psychology - COMPLETE BLOOD COUNT AND DIFFERENTIAL - COMPREHENSIVE METABOLIC PANEL - FERRITIN - FOLATE, SERUM - HEMOGLOBIN A1C - (more content not included)... [facility] 08-20-2023 History of Presen t illness Narrative Images from the original note were not included. have communicated my name and active licensure. The patient's identity and physical location were verified at the time of this visit. Either the patient or their legal manufacturers service representative has been informed of the risks and benefits of -- and alternatives to -- treatment through a remote evaluation and consents to proceed with the evaluation remotely. BMI MEDICAL CONSULT I have communicated my name and active licensure. The patient's identity and physical location were verified at the time of this visit. Either the patient or their legal manufacturers service representative has been informed of the risks and benefits of -- and alternatives to -- treatment through a remote evaluation and consents to proceed with the evaluation remotely. History of Present Illness 33 year old year old female presents on August 20, 2023 for medical evaluation prior to anticipated surgical/medical treatment of obesity. The patient is interested in TBD with Dr. Daivs. Last 2 Encounter Wt Readings: Date: Wt: [...] mass index (BMI) of 50-59.9 in adult ([facility]) 08/20/2023 Angel's thyroiditis 08/20/2023 High blood cholesterol [...] mass index (BMI) of 50-59.9 in adult ([facility]) - ICD9: V85.43, ICD10: Z68.43 (primary diagnosis) [...] PANEL - LIPID PANEL BASIC Tonya Senior APRN.MERON -- Recommend that she should not become [...] Obesity Medicine Visit documented in this encounter [facility] 06-13-2023 Evaluation note Encounter Date Diagnosis Assessment [...] 8 weeks -Handed patient self referral to [facility] bariatric surgery program -Czrnu-[id number] A1c December 2022 5.4%-Follow up in clinic in 8 weeksThis note was created with voice recognition software. Please excuse errors in supervisor grading. Jun, Dietary surveillance and counseling (ICD-10 - [...] for a goal of 5% weight reduction. [employer] Other 08-30-2023 Evaluation note* Encounter Date Diagnosis [...] on in the past and denies side nryjyhx-Dgxzr-ur-care A1c today 5.4%-Follow up in clinic in 4 weeksThis note was created with voice recognition software. Please excuse errors in supervisor grading. Dec, Dietary surveillance and counseling (ICD-10 - [...] premade protein drink for breakfast, by plain Estonian yogurt and flavor yourself with cinnamon or [...] with the patient, and documenting clinical information. [employer] Other Chief complaint+Reason for visit Narrative* Chief Complaint Obesity Reason for Visit Exercise counseling Severe obesity (BMI >= 40) [facility] Work Phone: Chief complaint+Reason for visit Narrative* Chief Complaint Pos test, Cramping, Vaginal bleeding Reason for Visit Exercise counseling Severe obesity (BMI >= 40) [facility] Work Phone: Evaluation noteNo assessment information available [facility] Work Phone: Evaluation note* Diagnosis Onset Date Resolution Status Exercise counseling acute Severe obesity (BMI >= 40) marija kevin [facility] Work Phone: Evaluation note* Diagnosis Body mass index (BMI) of 50-59.9 in adult ([facility])- Primary Body Mass Index 50.0-59.9, adult Angel's thyroiditis Chronic lymphocytic thyroiditis High blood cholesterol Pure hypercholesterolemia [facility] Diagnosis NO SHOW- Primary [facility]* Diagnosis Obesity, Class III, BMI 40-49.9 (morbid obesity) ([facility])- Primary Morbid obesity Dietary counseling Dietary surveillance and counseling documented [facility]* Diagnosis Vitamin D deficiency- Primary Unspecified vitamin D deficiency documented [facility]* Diagnosis 25 weeks gestation of Second trimester state, incidental Diabetes mellitus screening Screening for diabetes mellitus size inconsistent with dates H/O premature delivery [facility] Encounter for follow-up ultrasound of anatomy- Primary History of pre-eclampsia in prior , currently with other poor obstetric history History of delivery, currently with history of pre-term labor Obesity affecting in second trimester, unspecified obesity type [facility] - [facility]* Type Description Date Surgical History adnoidectomy Surgical History gall bladder Surgical History L Fallopian tube removed Hospitalization History See Above [employer] Other Hospital Discharge instructions Additional Instructions You may take yikp-prf-xdakdro cough and cold medication as needed You may take vawz-qia-atdmyzj Tylenol and/or ibuprofen as needed Increase oral fluids Follow-up with family doctor as needed Return to the ER for any acute difficulty breathing high fever vomiting or any [facility]: Hospital Discharge instructions Additional Instructions Nothing into vagina until seen by REUSE TECHNICIAN May take Tylenol for discomfort Increase oral fluids Follow-up with REUSE TECHNICIAN Return to the ER for heavy bleeding greater than a pad an hour feeling dizzy lightheaded or any other [facility] Work Phone: Hospital Discharge instructions Additional Instructions Follow-up with your OB in the next week.[facility] Work Phone: InstructionsNot on filedocumented in this encounter [facility] Diagnostic Procedure Only (Routine) - Pending Review Specialty Diagnoses / Procedures Referred By Wendy campos Referred To Contact [facility] Diagnoses Body mass index (BMI) of 50-59.9 in adult (HCC) Procedures US ABD RIGHT UPPER QUADRANT US ABDOMINAL REAL TIME W/IMAGE LIMITED Tonya Senior APRN.[employer] [address] [id number] [facility] Referral ID Status Reason Start Date Expiration Date Visits Requested Visits Authorized [id number] Pending Review Auto-Generat ed Referral 08/20/2023 09/18/2024 1 1 * Outpatient Procedure (Routine) - Pending Review Specialty Diagnoses / Procedures Referred By Contac t Referred To [facility] Diagnoses Body mass index (BMI) of 50-59.9 in adult (HCC) Procedures ECG COMPLETE ECG ROUTINE ECG W/LEAST 12 LDS W/I&R Tonya Senior APRN.[employer] [address] [place] [address] [facility] [address] [place] [address] Referral ID Status Reason Start Date Expiration Date Visits Requested Visits Authorized [id number] Pending Review Auto-Generat ed Referral 08/20/2023 08/19/2024 1 1 [facility] Summary Purpose Family History No Family History [...] 2 diabetes mellitus Unknown sister Obesity Unknown Relationship Condition Age at Onset Recorded Date/T evangelista grandparent Malignant neoplasm of breast Unknown mother Hypertension Unknown Obesity Unknown father Type 2 diabetes mellitus Unknown sister Obesity Unknown Advance Directives No Advanced Directives Records Found Advance Directive Response Recorded Date/ Time Advance Directives No April 2:37pm Advance Directive Response Recorded Date/ Time Advance Directives No April 1:37pm Chief Complaint and Reason for Visit Chief Complaint chest pain, cough Chief Complaint cough,chest pain Chief Complaint Sore throat Chief Complaint Sore throat sore throat, cp Additional Source Comments INFORMATION SOURCE (unrecogn ized section and content) DATE CREATED AUTHOR 10/31/2017 [facility] DATE CREATED AUTHOR AUTHOR'S ORGANIZ ATION 04/23/2020 [facility] DATE CREATED AUTHOR AUTHOR'S ORGANIZ ATION 08/08/2020 [facility] DATE CREATED AUTHOR AUTHOR'S ORGANIZ ATION 08/22/[address] [facility] DATE CREATED AUTHOR AUTHOR'S ORGANIZ ATION 06/11/2022 [facility] DATE CREATED AUTHOR AUTHOR'S ORGANIZ ATION 09/06/2023 [facility] DATE CREATED AUTHOR AUTHOR'S ORGANIZ ATION 10/03/2023 [facility] DATE CREATED AUTHOR AUTHOR'S ORGANIZ ATION 10/18/2023 [facility] DATE CREATED AUTHOR AUTHOR'S ORGANIZ ATION 01/20/2024 [facility] DATE CREATED AUTHOR AUTHOR'S ORGANIZ ATION 02/19/2024 [facility] DATE CREATED AUTHOR AUTHOR'S ORGANIZ ATION 02/25/2024 [facility] EPIC DATE CREATED AUTHOR AUTHOR'S ORGANIZ ATION 03/19/2024 [facility] Care Teams (unrecognized sec tion and content) Team Status: Inactive Member Role Status Dates Services Family Health Primary Care Provider Active Ck To PA-C Emergency Provider Active Team Status: Active Member Role Status Dates Services Family Health Primary Care Provider Active Team Status: Inactive Member Role Status Dates Services Family Health Primary Care Provider Active Marychuy Kyle CHEMISTRY TECHNICIAN-BC Emergency Provider Active Team Status: Inactive Member Role Status Dates Nicholas Michaels DO Attending Provider Active St art: June 13, 2023 End: June 13, 2023 Team Status: Active Member Role Status Dates Services Family Health Primary Care Provider Active Start: June 13, 2023 Nicholas Michaels DO Attending Provider Active St art: June 13, 2023 Team Status: Inactive Member Role Status Dates Services Family Health Primary Care Provider Active Start: August 07, 2023 End: August 07, 2023 Nicholas Michaels DO Attending Provider Active St art: August 07, 2023 End: August 07, 2023 Team Status: Inactive Member Role Status Dates Services Family Health Primary Care Provider Active Start: October 06, 2023 End: October 06, 2023 Marychuy Kyle CHEMISTRY TECHNICIAN-BC Emergency Provider Active Start: October 06, 2023 End: October 06, 2023 Team Status: Inactive Member Role Status Dates Services Family Health Primary Care Provider Active Start: February 26, 2024 End: February 26, 2024 Ck To PA-C Emergency Provider Active Start: February 26, 2024 End: February 26, 2024 Team Status: Inactive Member Role Status Dates Services Family Health Primary Care Provider Active Start: March 05, 2024 End: March 05, 2024 Devika De La Garza DO Emergency Provider Active Sta rt: March 05, 2024 End: March 05, 2024 Goals (unrecognized section and content) Goals may be documented in a n alternate sectionGoals may be documented in an alternate sectionNo InformationNo InformationGoals may be documented in an alternate sectionGoals may be documented in an alternate sectionGoals may be documented in an alternate sectionGoals may be documented in an alternate sectionNot on filedocumented as of this encounterGoals may be documented in an alternate section REASON FOR VISIT (unrecogniz ed section and content) Reason Comments New Patient Reason Comments No Show Reason Comments Patient Education Assessment 91 Reason Comments Results Reason Comments Routine Visit Source Comments (unrecognize d section and content) In the event this informatio n is protected by the Federal Confidentiality of Alcohol and Drug Abuse Patient Records regulations: The Federal rules restrict any use of the information to criminally investigate or prosecute any alcohol or drug abuse patient.[facility] the event this information is protected by the Federal Confidentiality of Alcohol and Drug Abuse Patient Records regulations: The Federal rules restrict any use of the information to criminally investigate or prosecute any alcohol or drug abuse patient.[facility] SystemIn the event this information is protected by the Federal Confidentiality of Alcohol and Drug Abuse Patient Records regulations: The Federal rules restrict any use of the information to criminally investigate or prosecute any alcohol or drug abuse patient.[facility] SystemIn the event this information is protected by the Federal Confidentiality of Alcohol and Drug Abuse Patient Records regulations: The Federal rules restrict any use of the information to criminally investigate or prosecute any alcohol or drug abuse patient.[facility] SystemIn the event this information is protected by the Federal Confidentiality of Alcohol and Drug Abuse Patient Records regulations: The Federal rules restrict any use of the information to criminally investigate or prosecute any alcohol or drug abuse patient.[facility] SystemIn the event this information is protected by the Federal Confidentiality of Alcohol and Drug Abuse Patient Records regulations: The Federal rules restrict any use of the information to criminally investigate or prosecute any alcohol or drug abuse patient.[facility] FOR RECORDS PERTAINING TO PATIENTS WHO ARE [...] BE BASED ON THE PRIMARY CLINICAL RECORDS. [facility]. provides no warranty or guarantee of the accuracy or completeness of information in this document.
[2024-03-19 14:25] LABS: Basophils Percent Auto 0.5 % (0.2-2.0); Eosinophils Absolute Auto 0.2 10^3/uL (0.0-0.7); Eosinophils Percent Auto 2.4 % (0.9-7.0); Hematocrit 33.2 % (36.0-48.0); Hemoglobin 11.1 g/dL (12.0-16.0); Immature Granulocytes Abs Auto 0.02 10^3/uL (0.00-0.03); Immature Granulocytes Pct Auto 0.3 % (0.0-0.5); Lymphocytes Absolute Auto 2.1 10^3/uL (1.2-3.8); Lymphocytes Percent Auto 32.5 % (20.5-60.0); Mean Corpuscular HGB Conc 33.4 g/dL (29.9-35.2); Mean Corpuscular Hemoglobin 30.5 pg (26.7-34.0); Mean Corpuscular Volume 91.2 fL (81.0-99.0); Mean Platelet Volume 9.3 fL (9.5-13.5); Monocytes Absolute Auto 0.3 10^3/uL (0.3-0.8); Monocytes Percent Auto 4.6 % (1.7-12.0); Neutrophils Absolute Auto 3.9 10^3/uL (1.4-6.5); Neutrophils Percent Auto 59.7 % (43.0-75.0); Platelet Count 342 10^3/uL (150-450); Red Blood Count 3.64 10^6/uL (4.20-5.40); Red Cell Distribution Width 13.2 % (11.0-15.0); White Blood Count 6.6 10^3/uL (4.0-11.0)
[2024-03-19 14:38] LABS: Glucose 1 Hour 122 mg/dL (<130)
== END 2024-03-19 13:00 | disposition home or self-care (01) ==
LOC: LAB 13:02
PROVIDERS: Visit Provider Physician Assistant
DX: Z13.1 Encounter for screening for diabetes mellitus (principal)
CPT/HCPCS: 36415; 82950; 85025

== ENCOUNTER 2024-03-22 13:19 | Outpatient (OUT) | payer MEDICAID, SELFPAY ==
--- NOTE | 2024-03-22 13:21 | US_ITS ---
[address] [address] Patient Name: FABRIZIO PAINTING MRN: [id number] date: 1990 Sex: F Assigned Patient Location: [facility] Current Patient Location: [facility] Accession/Order Number: [id number] Exam Date: 03/22/2024 13:22 Report Date: 03/22/2024 16:02 At the request of: HENRY URBAN Procedure: US OB growth EXAMINATION: US OB growth HISTORY: size inconsistent with dates O26.849 COMPARISON: No relevant comparison available. FINDINGS: Heart Rate: 145 bpm Amniotic Fluid Volume: 11.2 cm, largest fluid pocket 4.0 cm Number: 1 Position: Breech presentation, longitudinal lie Placenta: Anterior, grade 0 Other: Multiple myometrial masses likely fibroids BIOMETRY: BPD: 7.22 cm; 29 weeks 0 days; 32.20 % HC: 27.61 cm; 30 weeks 1 day; 47.40 % AC: 25.72 cm; 29 weeks 6 days; 66.70 % FL: 5.80 cm; 30 weeks 2 days; 69.60 % EFW: 1383.83 g; 68.80 %, 3 lbs. 5 oz. FL/AC: 22.55 FL/BPD: 80.33 HC/AC: 1.07 GESTATIONAL AGE: Age by EDC: 29 weeks 1 day DARLENE by EDC: 2024-06-06 Age by US: 29 weeks 4 days DARLENE by US: 2024-06-03 US/US OB growth IMPRESSION: Normal interval growth Electronically authenticated by: GEORGETTE LAING Date: 03/22/2024 16:02
== END 2024-03-22 13:20 | disposition home or self-care (01) ==
LOC: NOMS 13:20
PROVIDERS: Visit Provider Physician Assistant
DX: O26.843 Uterine size-date discrepancy, third trimester (principal); Z3A.29 29 weeks gestation of pregnancy
CPT/HCPCS: 76816

== ENCOUNTER 2024-04-16 06:11 | Outpatient (OUT) | payer MEDICAID, SELFPAY ==
--- OUTSIDE RECORDS SUMMARY | 2024-04-16 06:14 | XMS_ITS | CCD ---
Author Organization [facility] Care Team Providers Care System Software Programmer Name Role Phone Agustin Patton Unavailable Unavailable Agustin Patton Unavailable Unavailable Bayron Mccarty Unavailable Unavailable Unavailable Unavailable Unavailable Unavailable Unavailable Unavailable [facility] Primary Care Provider DEMETRIUS To Emergency Provider DR TACHO MENENDEZ Attending Unavailable DR TACHO MENENDEZ Consulting Unavailable DR TACHO MENENDEZ Admitting Unavailable [facility] Primary Care Provider Anabella [facility] Marychuy E Emergency Provider 1( [phone] Nicholas Michaels Unavailable [facility] Services Primary Care Provider DO Nicholas Michaels Attending Provider Unavailable Primary Care Provider Unavailabl e Unavailable Primary Care Provider Unavailabl e LATONIA GREENE Attending Unavailable TONYA SENIOR Attending Unavailable [facility] Primary Care Provider 1( [phone] Anabella [facility] Marychuy E Emergency Provider LATONIA GREENE Referring Unavailable LATONIA GREENE Attending Unavailable ANNA ORTIZ Attending Unavailable TONYA SENIOR Referring Unavailable TONYA SENIOR Referring Unavailable TACHO MENENDEZ Referring Unavailable MAKEDA GROSS Attending Unavailable TACHO MENENDEZ Referring Unavailable Unavailable Primary Care Provider Unavailabl e [facility] Primary Care Provider 1( [phone] DEMETRIUS To Emergency Provider Unavailable Primary Care Provider Unavailabl DO Devika Christie Emergency Provider Ck To Attending Unavailable Ck To Admitting Unavailable [facility] Primary Care Unavaila Marychuy Rey Attending Unavailable Marychuy Kyle Admitting Unavailable [facility] Primary Care Unavaila Nicholas Willams Attending Unavailable Nicholas Michaels Admitting Unavailable [facility] Primary Care Unavaila ble [facility] Primary Care Unavaila Devika Hillman Attending Unavailable Devika De La Garza Admitting Unavailable SHONJUDAHY Mckenzie Referring Unavailable SHONJUDAHY R Referring Unavailable SHON, TACHO Attending Unavailable MENA ANN Attending Unavailable SHONTACHO Attending Unavailable MENA ANN Attending Unavailable SHON, TACHO Attending Unavailable MENA ANN Attending Unavailable Medications Current Medications Medication Drug Class(es) Dates Sig (Normalized) Sig (Original) aspirin 81 mg chewable tablet (1 source) Platelet Aggregation Inhibitor, Nonsteroidal Anti-inflammatory Drug Start: 01-19-2024 aspirin 81 mg chewable tablet Indications: History of pre-eclampsia in prior , currently Chew 1 tablet (81 mg total) and swallow in the morning. 90 tablet 3 01/19/2024 Active azithromycin 250 mg oral tablet (7 sources) Macrolide Antimicrobial Start: 03-16-2024 azithromycin (Zithromax Z-Jayson) 250 MG tablet Indications: URI, acute As directed 6 tablet 03/16/2024 Active cholecalciferol 1.25 mg oral capsule (4 [...] mg/ml oral solution (2 sources) Phenothiazine, Uncompetitive Z-qgyrqd-U-aspartate Receptor Antagonist, Sigma-1 Agonist Start: 02-26-2024 take 1 mL by mouth every six hours Promethazine-Dm Active 5 ML PO Q6H 118 February 26, 2024 12:00am fluticasone propionate 0.05 mg/actuat metered dose nasal spray (2 sources) Corticosteroid Start: 02-26-2024 take 1 spray(s) nasal route twice daily Fluticasone Propionate (Flonase Allergy Relief) 50 mcg/actuation spray,suspension Active 1 SPRAY INTRANASAL Twice daily February 26, 2024 12:00am administer into each nostril levothyroxine sodium 0.05 mg oral tablet (18 sources) l-Thyroxine Start: 02-16-2024 take 0.5 tablet [...] 7:27pm magnesium oxide 400 mg oral tablet (11 sources) Start: 10-30-2023 End: 10-29-2024 take 1 tablet by mouth once daily magnesium oxide (Mag-Ox) 400 MG tablet Indications: headache in first trimester Take 1 tablet (400 mg) by mouth Daily 30 tablet 11 10/30/2023 10/29/2024 Active [place] (No Known Home Meds) (3 sources) Start: 10-06-2023 [place] (No Kn own Home Meds) Active October 06, 2023 12:00am Start: 06-18-2022 [place] (No Kn own Home Meds) Active June [...] w/FA-DHA ( Gummies) 0.18-25 MG chewable tablet (10 sources) Start: 11-26-19 End: 11-26-19 MV & Min w/FA-DHA ( Gummies) 0.18-25 [...] oral solution (7 sources) alpha-Adrenergic Agonist, Uncompetitive U-gfnicw-M-asparta te Receptor Antagonist, Sigma-1 Agonist Start: 2 [...] 600 M G PO EVERY 4-6 HOURS 20 July 20, 2019 12:00am July 28, 2020 7:27pm [...] 26, 2019 12:58pm July 28, 2020 7:27pm Uvoiwgof-Axr-Vd-Fa () 1 mg Tablet (7 sources) Start: 12-31-2020 End: 07-04-2021 take 1 tablet by mouth once Ullvbcbp-Hhi-Ss-Fa () 1 mg Tablet Discontinued TAB PO December 30, 2020 11:00pm July 04, 2021 9:48am Start: 12-31-2020 End: 07-04-2021 take 1 tablet by mouth once Pjktqvsq-Isv-Vb-F a () 1 mg Tablet Discontinued TAB [...] Mccarty MD Start : 19-Jun-2020 Active sennosides, fpc 8.6 mg oral tablet (1 source) take 4 tablets by [facility] every twenty-four hours Senna 8.6 MG 4 [...] trimester] Onset: 01-19-2024 Chronic Other complications of (2 sources) Obesity complicating , second trimester; Translations: [Obesity [...] ovarian syndrome)] Chronic Other female genital disorders (6 sources) H/O: premature delivery; Translations: [Personal history [...] 01-19-2024 Chronic Other and delivery including normal (13 sources) Intrauterine ; Translations: [Encounter for supervision [...] [25 weeks gestation of ] 02-23-2024 Episodic Residual codes; unclassified (2 sources) Gestation period, 29 weeks; Translations: [29 weeks gestation of ] 03-22-2024 Episodic Residual codes; unclassified (2 sources) Gestation period, 31 weeks; Translations: [31 weeks gestation of ] 04-06-2024 Episodic Sprains and strains (7 sources) Low [...] Test Name Value Interpretation Reference Range Facility Urinalysis macro (dipstick) panel (U)on 04-06-2024 Bilirubin, UA Negative Negative - 4(70) +++ mg/dL [facility] Blood, UA Negative Negative - 50 Bradley/mcL [facility] Clarity, UA Clear [facility] Color, UA Yellow [facility] Glucose, UA Negative Negative - 1999(110) ++++ mg/dL [facility] Interpretation and review of laboratory results Abnormal [facility] Ketones, UA Negative Negative - 160(16) ++++ mg/dL [facility] Leukocytes, UA Positive Negative - 500+++ Gabby/mcL [facility] Comment on above: small Nitrite, UA Negative Negative - Positive [facility] pH, UA 7 5 - 9 [facility] Protein, UA Negative Negative - 1999(20) ++++ mg/dL [facility] Spec Grav, UA 1.02 1 - 1.03 [facility] Urobilinogen, UA 0.2 0.2 - 12 mg/dL [facility] Urinalysis macro (dipstick) panel (U)on 03-22-2024 Bilirubin, UA Positive Negative - 4(70) +++ mg/dL [facility] Blood, UA Negative Negative - 50 Bradley/mcL [facility] Clarity, UA Clear [facility] Color, UA Yellow [facility] Glucose, UA Negative Negative - 1999(110) ++++ mg/dL [facility] Interpretation and review of laboratory results Normal [facility] Ketones, UA Positive Negative - 160(16) ++++ mg/dL [facility] Leukocytes, UA Positive Negative - 500+++ Gabby/mcL [facility] Nitrite, UA Negative Negative - Positive [facility] pH, UA 7 5 - 9 [facility] Protein, UA Positive Negative - 1999(20) ++++ mg/dL [facility] Spec Grav, UA 1.025 1 - 1.03 [facility] Urobilinogen, UA 1.0 0.2 - 12 mg/dL [facility] ALL CBC WITH AUTO DIFFon BASOPHILS ABSOLUTE AUTO 0 [facility] Basophils/100 WBC (Bld) 0.5 % 0.2 - 2.0 % [facility] Eosinophils/100 WBC (Bld) 2.4 % 0.9 - 7.0 % [facility] Erythrocyte distribution width (RBC) [Ratio] 13.2 % 11.0 - 15.0 % [facility] Hematocrit (Bld) [Volume fraction] 33.2 % Low 36.0 - 48.0 % [facility] Hemoglobin (Bld) [Mass/Vol] 11.1 g/dL Low 12.0 - 16.0 g/dL [facility] IMMATURE GRANULOCYTES ABS AUTO 0.02 [facility] Immature granulocytes/100 WBC (Bld) 0.3 % 0.0 - 0.5 % [facility] Interpretation and review of laboratory results Abnormal [facility] LYMPHOCYTES ABSOLUTE AUTO 2.1 [facility] Lymphocytes/100 WBC (Bld) 32.5 % 20.5 - 60.0 % [facility] MCH (RBC) [Entitic mass] 30.5 pg 26.7 - 34.0 pg [facility] MCHC (RBC) [Mass/Vol] 33.4 g/dL 29.9 - 35.2 g/dL [facility] MCV (RBC) [Entitic vol] 91.2 fL 81.0 - 99.0 fL [facility] MONOCYTES ABSOLUTE AUTO 0.3 [facility] Monocytes/100 WBC (Bld) 4.6 % 1.7 - 12.0 % [facility] NEUTROPHILS ABSOLUTE AUTO 3.9 [facility] Neutrophils/100 WBC (Bld) 59.7 % 43.0 - 75.0 % [facility] Platelet mean volume (Bld) [Entitic vol] 9.3 fL Low 9.5 - 13.5 fL [facility] TBH EO # 0.2 [facility] TB PLT [address] [facility] RBC 3.64 Low [facility] WBC 6.6 [facility] BioFire Not Detectedon 03-05 BioFire Not Detected Not detected Normal Not Detecte T adele [facility] Comment on above: Result Comment: This is a duplicate RP2.1 COVID (PCR) result to be used for statistical tracking purpose only. PERFORMED BY: [place] [address] PATHOLOGIST WATCH REPAIRER LION STANLEY M.D. Performed By: #### B IOFIRECOVNOTDE, QS, RESP PANEL UPP. #### [address] COVID-19 Detected/Not Detect edOrdered By: Devika De La Garza on 03-05-2024 SARS-CoV-2 (COVID-19) RNA YANET+non-probe Ql (Nph) Not detected Not Detecte [facility] Comment on above: This is a duplicate RP2.1 COVID (PCR) result to be used for statistical tracking purpose only. ECG 12 lead ECGon 03-05-2024 ECG 12 lead [place] [address] Electrocardiograph Report Signed Patient: Jaleesa Arrieta MR#: [id number] [birth year] : 1990 Acct:[id number] Age/Sex: 33 / F ADM Date: 03/05/24 Loc: ER Room: Type: [facility] ER Attending Dr: Ordering Provider: Devika De [...] Confirmed by DEVIKA DE LA GARZA DO ([id number]) on 03/06/2024 1:44:25 AM Referred By: Electronically Signed By: DEVIKA DE LA GARZA DO Transcribed By: MUS Signed By Devika De La Garza DO 03/06 0144 Normal [facility] Quick Strepon 03-05-2024 Quick Strep Streptococcus pyogen es Ag [Presence] in Throat by Rapid immunoassay Negative for Group A Strep Antigen Note 1 NOTE 2 Results are those of a screening test. NOTE 3 If clinically indicated please order a culture. NOTE 4 NOTE 5 Reference range = Negative PERFORMED BY: [place] [address] PATHOLOGIST WATCH REPAIRER LION STANLEY M.D. Normal [facility] Comment on above: Performed By: #### B IOFIRECOVNOTDE, QS, RESP PANEL UPP. #### [facility] [address] [place] [id number] [facility] Respiratory (Upper) Panel, P CRon 03-05-2024 [...] A H3 Blank Space ------ PERFORMED BY: [facility] [address] [facility] [address] PATHOLOGIST WATCH REPAIRER LION STANLEY M.D. Normal [facility] Comment on above: Performed By: #### B IOFIRECOVNOTDE, QS, RESP PANEL UPP. #### [facility] [address] [place] [id number] [facility] Respiratory pathogens DNA an d RNA panel - Nasopharynx by YANET with non-probe detectionOrdered By: Devika De La Garza on 03-05-2024 Respiratory pathogens DNA and RNA panel YANET+non-probe (Nph) [facility] Streptococcus pyogenes antig en detectionOrdered By: Devika De La Garza on 03-05-2024 S. pyogenes Ag Ql (Unsp spec) [facility] XR chest 1V portableon 03-05 XR chest 1V portable [place] [address] XRay Report Signed Patient: Jaleesa Arrieta MR#: [id number] [birth year] : 1990 Acct:[id number] Age/Sex: 33 / F ADM Date: 03/05/24 Loc: ER Room: Type: [facility] ER Attending Dr: Copies to: Devika De [...] Priscilla Cunningham M.D.03/05/2024 9:34 PM Dictation Location: [place] [address] Transcribed By: LIDA 03/05/242133 Dictated By: Priscilla Cunningham MD 03/05/242130 Signed By: 03/05/242133 Normal [facility] Quick Strepon 02-26-2024 Quick Strep Streptococcus pyogen es Ag [Presence] in Throat by Rapid immunoassay Negative for Group A Strep Antigen Note 1 NOTE 2 Results are those of a screening test. NOTE 3 If clinically indicated please order a culture. NOTE 4 NOTE 5 Reference range = Negative PERFORMED BY: [place] [address] PATHOLOGIST WATCH REPAIRER LION STANLEY M.D. Normal [facility] Comment on above: Performed By: #### Q S #### [facility] [address] Streptococcus pyogenes antig en detectionOrdered By: Ck To on 02-26-2024 S. pyogenes Ag Ql (Unsp spec) [facility] Urinalysis macro (dipstick) panel (U)on 02-23-2024 Bilirubin, UA Negative Negative - 4(70) +++ mg/dL [facility] Blood, UA Negative Negative - 50 Bradley/mcL [facility] Clarity, UA Clear [facility] Color, UA Yellow [facility] Glucose, UA Negative Negative - 1999(110) ++++ mg/dL [facility] Interpretation and review of laboratory results Abnormal [facility] Ketones, UA Negative Negative - 160(16) ++++ mg/dL [facility] Leukocytes, UA Positive Negative - 500+++ Gabby/mcL [facility] Comment on above: small Nitrite, UA Negative Negative - Positive [facility] pH, UA 7 5 - 9 [facility] Protein, UA Negative Negative - 2000(20) ++++ mg/dL [facility] Spec Grav, UA 1.02 1 - 1.03 [facility] Urobilinogen, UA 0.2 0.2 - 12 mg/dL [facility] Alanine aminotransferase [En zymatic activity/volume] in Serum or PlasmaOrdered By: Marychuy Jeronimoimore on 10-06-2023 ALT [Catalytic activity/Vol] 13 U/L Normal 7-52 [facility] Comment on above: Performed By: #### C BC, CMP, HCGQNT #### [facility] [address] Albumin [Mass/volume] in Ser um or Plasma by Bromocresol green (BCG) dye binding methoOrdered By: Marychuy Bullimore on 10-06-2023 Albumin BCG dye [Mass/Vol] 3.8 g/dL 3.5-5.7 [facility] Alkaline phosphatase [Enzyma tic activity/volume] in Serum or PlasmaOrdered By: Marychuy Jeronimosarinaore on 10-06-2023 ALP [Catalytic activity/Vol] 61 U/L Normal 34-104 [facility] Comment on above: Performed By: #### C BC, CMP, HCGQNT #### [address] Aspartate aminotransferase [ Enzymatic activity/volume] in Serum or PlasmaOrdered By: Marychuy Bullimore on 10-06-2023 AST [Catalytic activity/Vol] 13 U/L Normal 13-39 [facility] Comment on above: Performed By: #### C BC, CMP, HCGQNT #### [address] Automated basophil %Ordered By: Marychuy Anabella on 10-06-2023 Basophils/100 WBC (Bld) 0.6 % Normal . [facility] Comment on above: Performed By: #### C BC, CMP, HCGQNT #### [address] Automated basophil countOrde red By: Marychuy Anabella on 10-06-2023 Basophils (Bld) [#/Vol] 0.0 10*3/uL Normal 0.0-0.2 [facility] Comment on above: Result Comment: PERF ORMED BY: [place] [address] PATHOLOGIST WATCH REPAIRER LION STANLEY M.D. Performed By: #### C BC, CMP, HCGQNT #### [address] Automated blood monocyte cou ntOrdered By: Marychuy Jeronimosariah on 10-06-2023 Monocytes (Bld) [#/Vol] 0.5 10*3/uL Normal 0.0-0.8 [facility] Comment on above: Performed By: #### C BC, CMP, HCGQNT #### [address] Automated eosinophil %Ordere d By: Marychuy Bullimore on 10-06-2023 Eosinophils/100 WBC (Bld) 0.7 % Normal . [facility] Comment on above: Performed By: #### C BC, CMP, HCGQNT #### [facility] [address] [place] [address] Automated eosinophil countOr dered By: Marychuy Phaniimore on 10-06-2023 Eosinophils (Bld) [#/Vol] 0.1 10*3/uL Normal 0.0-0.45 [facility] Comment on above: Performed By: #### C BC, CMP, HCGQNT #### [facility] [address] [place] [address] Automated epithelial cells c ount in urine sediment (number/area)Ordered By: Marychuy Phaniimore on 10-06-2023 Epithelial cells Auto (Urine sed) [#/Area] 3-4 [HPF] 0-2 [facility] Automated monocyte %Ordered By: Marychuy Phaniimore on 10-06-2023 Monocytes/100 WBC (Bld) 6.7 % Normal . [facility] Comment on above: Performed By: #### C BC, CMP, HCGQNT #### [facility] [address] [place] [address] Automated neutrophil %Ordere d By: Marychuy Phaniimore on 10-06-2023 Neutrophils/100 WBC (Bld) 54.4 % Normal . [facility] Comment on above: Performed By: #### C BC, CMP, HCGQNT #### [address] Bacteria [Presence] in Urine by AutomatedOrdered By: Marychuy Phaniimore on 10-06-2023 Bacteria Auto Ql (U) None seen [HPF] None Seen [facility] Bilirubin Test strip Ql (U)O rdered By: Marychuy Bullimore on 10-06-2023 Bilirubin Ql (U) Negative Negative [facility] Bilirubin.total [Mass/volume ] in Serum or PlasmaOrdered By: Marychuy Bullimore on 10-06-2023 Bilirubin [Mass/Vol] 0.2 mg/dL Low 0.3-1.0 [facility] Comment on above: Performed By: #### C BC, CMP, HCGQNT #### [facility] [address] [place] [address] [place] Calcium [Mass/volume] in Ser um or PlasmaOrdered By: Marychuy Bullimore on 10-06-2023 Calcium [Mass/Vol] 9.4 mg/dL Normal 8.6-10.3 [facility] Comment on above: Performed By: #### C BC, CMP, HCGQNT #### [facility] [address] Carbon dioxide, total [Moles /volume] in Serum or PlasmaOrdered By: Marychuy Bullimore on 10-06-2023 CO2 [Moles/Vol] 25.5 mmol/L Normal 21.0-31.0 [facility] Comment on above: Performed By: #### C BC, CMP, HCGQNT #### [facility] [address] [place] [address] [place] Chloride [Moles/volume] in S sondra or PlasmaOrdered By: Marychuy Bullimore on 10-06-2023 Chloride [Moles/Vol] 105 mmol/L Normal 98-107 [facility] Comment on above: Performed By: #### C BC, CMP, HCGQNT #### [facility] [address] Choriogonadotropin.beta subu nit [Units/volume] in Serum or PlasmaOrdered By: Marychuy Phaniimore on 10-06-2023 HCG.beta subunit Qn 2799.00 m[IU]/mL [facility] Comment on above: Approximate Approxim ate hCG Gestational Age Range (mIU/ml) (weeks)0.2-1 5-50 1-2 50-500 2-3 100-5,000 3-4 500-10,000 4-5 1,000-50,000 5-6 10,000-100,000 6-8 15,000-200,000 8-12 10,000-100,000 Color of Urine by AutoOrdere d By: Marychuy Kyle on 10-06-2023 Color (U) Yellow Normal Yellow [facility] Comment on above: Order Comment: NEED MORE SPECIMEN Name Collection Type:: Clean-Voided Midstream Performed By: #### A DDONUAPLUS #### [address] Complete Blood Count Auto Di ffon 10-06-2023 Mean Corpuscular HGB Conc 34.4 g/dL Normal 32.0-35.0 [facility] Comment on above: Performed By: #### C BC, CMP, HCGQNT #### [address] Monocytes/100 WBC (Bld) 17.37 % Normal 0.00-20.00 [facility] Comment on above: Performed By: #### C BC, CMP, HCGQNT #### [address] NRBC% 0.2 /100{WBC} Normal 0-0.5 [facility] Comment on above: Performed By: #### C BC, CMP, HCGQNT #### [address] Comprehensive Metabolic Pane panchito 10-06-2023 Albumin [Mass/Vol] 3.8 g/dL Normal 3.5-5.7 [facility] Comment on above: Performed By: #### C BC, CMP, HCGQNT #### [address] Creatinine Clr Calc Pharmacy 180.48 Normal [facility] Comment on above: Performed By: #### C BC, CMP, HCGQNT #### [place] [address] [place] GFR/1.73 sq M.predicted MDRD (S/P/Bld) [Vol rate/Area] mL/min/{1.73_m2} Normal [facility] Comment on above: Performed By: #### C BC, CMP, HCGQNT #### [address] Creatinine [Mass/volume] in Serum or PlasmaOrdered By: Marychuy Kyle on 10-06-2023 Creatinine [Mass/Vol] 0.63 mg/dL Normal 0.60-1.20 [facility] Comment on above: Performed By: #### C BC, CMP, HCGQNT #### [facility] [address] [place] [address] [place] Dipstick and Microscopicon 0 10-06-2023 Appearance (U) Clear Normal Clear [facility] Comment on above: Order Comment: NEED MORE SPECIMEN Name Collection Type:: Clean-Voided Midstream Performed By: #### A DDONUAPLUS #### [place] [address] [place] Bacteria,Urine None Seen Normal None Seen [facility] Comment on above: Order Comment: NEED MORE SPECIMEN Name Collection Type:: Clean-Voided Midstream Performed By: #### A DDONUAPLUS #### [place] [address] [place] Bilirubin,Urine Negative Normal Negative [facility] Comment on above: Order Comment: NEED MORE SPECIMEN Name Collection Type:: Clean-Voided Midstream Performed By: #### A DDONUAPLUS #### [place] [address] [place] Glucose Ql (U) Normal Normal Normal [facility] Comment on above: Order Comment: NEED MORE SPECIMEN Name Collection Type:: Clean-Voided Midstream Performed By: #### A DDONUAPLUS #### [place] [address] [place] Hyaline Casts,Urine 0-8 Normal 0-[address] [facility] Comment on above: Order Comment: NEED MORE SPECIMEN Name Collection Type:: Clean-Voided Midstream Result Comment: PERF ORMED BY: [place] [address] PATHOLOGIST WATCH REPAIRER LION STANLEY M.D. Performed By: #### A DDONUAPLUS #### [address] Ketones Ql (U) Negative Normal Negative [facility] Comment on above: Order Comment: NEED MORE SPECIMEN Name Collection Type:: Clean-Voided Midstream Performed By: #### A DDONUAPLUS #### [address] Leukocyte esterase Test strip Ql (U) 1+ High Negative [facility] Comment on above: Order Comment: NEED MORE SPECIMEN Name Collection Type:: Clean-Voided Midstream Performed By: #### A DDONUAPLUS #### [place] [address] [place] Nitrite,Urine Negative Normal Negative [facility] Comment on above: Order Comment: NEED MORE SPECIMEN Name Collection Type:: Clean-Voided Midstream Performed By: #### A DDONUAPLUS #### [address] Occult Blood,Urine Negative Normal Negative [facility] Comment on above: Order Comment: NEED MORE SPECIMEN Name Collection Type:: Clean-Voided Midstream Result Comment: PERF ORMED BY: [place] [address] PATHOLOGIST WATCH REPAIRER LION STANLEY M.D. Performed By: #### A DDONUAPLUS #### [address] Protein,Urine Negative Normal Negative [facility] Comment on above: Order Comment: NEED MORE SPECIMEN Name Collection Type:: Clean-Voided Midstream Performed By: #### A DDONUAPLUS #### [address] RBC LM.HPF (Urine sed) [#/Area] 0 /[HPF] Normal 0-4 [facility] Comment on above: Order Comment: NEED MORE SPECIMEN Name Collection Type:: Clean-Voided Midstream Performed By: #### A DDONUAPLUS #### [address] Specificy [place],Urine 1.017 Normal 1.001-1.030 [facility] Comment on above: Order Comment: NEED MORE SPECIMEN Name Collection Type:: Clean-Voided Midstream Performed By: #### A DDONUAPLUS #### [address] Squamous Epithelial Cell,Urine 3-4 High 0-2 [facility] Comment on above: Order Comment: NEED MORE SPECIMEN Name Collection Type:: Clean-Voided Midstream Performed By: #### A DDONUAPLUS #### [address] [address] Urobilinogen,Urine Normal Normal Normal [facility] Comment on above: Order Comment: NEED MORE SPECIMEN Name Collection Type:: Clean-Voided Midstream Performed By: #### A DDONUAPLUS #### [address] WBC,Urine 3-4 Normal 0-4 [facility] Comment on above: Order Comment: NEED MORE SPECIMEN Name Collection Type:: Clean-Voided Midstream Performed By: #### A DDONUAPLUS #### [address] Erythrocyte distribution wid th [Ratio] by Automated countOrdered By: Marychuy Wangore on 10-06-2023 Erythrocyte distribution width (RBC) [Ratio] 13.4 % Normal 11.9-15.3 [facility] Comment on above: Performed By: #### C BC, CMP, HCGQNT #### [address] Erythrocytes [#/area] in Uri ne sediment by Automated countOrdered By: Marychuy Bullimore on 10-06-2023 RBC Auto (Urine sed) [#/Area] 0-1 [HPF] 0-4 [facility] Erythrocytes [#/volume] in B lood by Automated countOrdered By: Marychuy Bullimore on 10-06-2023 RBC (Bld) [#/Vol] 4.08 10*6/uL Normal 3.60-5.00 [facility] Comment on above: Performed By: #### C BC, CMP, HCGQNT #### [address] Glucose [Mass/volume] in Ser um or PlasmaOrdered By: Marychuy Kyle on 10-06-2023 Glucose [Mass/Vol] 100 mg/dL Normal 70-100 [facility] Comment on above: ADA recommended refe rence rangeRandom Glucose Reference Range is dependent on time and content of last meal. Glucose of more than 200 mg/dL in a nonstressed, ambulatory subject supports the diagnosis of Diabetes Mellitus. Result Comment: [place] om Glucose Reference Range is dependent on time and content of last meal. Glucose of more than 200 mg/dL in a nonstressed, ambulatory subject supports the diagnosis of Diabetes Mellitus. ADA recommended reference range Performed By: #### C BC, CMP, HCGQNT #### [address] HCG,Quantitativeon HCG,Quantitative 2799.00 m[iU]/mL Normal Th e [facility] Comment on above: Result Comment: Appr oximate Approximate hCG Gestational Age Range (mIU/ml) (weeks) 0.2-1 5-50 1-2 50-500 2-3 100-5,000 3-4 500-10,000 4-5 1,000-50,000 5-6 10,000-100,000 6-8 15,000-200,000 8-12 10,000-100,000 PERFORMED BY: [place] [address] PATHOLOGIST WATCH REPAIRER LION STANLEY M.D. Performed By: #### C BC, CMP, HCGQNT #### [address] Hematocrit [Volume Fraction] of Blood by Automated countOrdered By: Marychuy Kyle on 10-06-2023 Hematocrit (Bld) [Volume fraction] 36.7 % Normal 34.0-46.4 [facility] Comment on above: Performed By: #### C BC, CMP, HCGQNT #### [address] Hemoglobin [Mass/volume] in BloodOrdered By: Marychuy Kyle on 10-06-2023 Hemoglobin (Bld) [Mass/Vol] 12.6 g/dL Normal 11.8-15.4 [facility] Comment on above: Performed By: #### C BC, CMP, HCGQNT #### [facility] [address] Ketones Auto test strip (U) [Mass/Vol]Ordered By: Marychuy Kyle on 10-06-2023 Ketones (U) [Mass/Vol] Negative Negative [facility] Laboratory - UrinalysisOrder ed By: Marychuy Jeronimoimore on 10-06-2023 Hyaline casts LM Ql (Urine sed) 0-8 [LPF] 0-8 [facility] Leukocytes [#/area] in Urine sediment by Automated countOrdered By: Marychuy Jeronimoimore on 10-06-2023 WBC Auto (Urine sed) [#/Area] 3-4 [HPF] 0-4 [facility] Leukocytes [#/volume] correc inocencia for nucleated erythrocytes in Blood by Automated counOrdered By: Marychuy Jeronimoimore on 10-06-2023 WBC corrected for nucl RBC Auto (Bld) [#/Vol] 7.4 10*3/uL 3.8-11.6 [facility] Leukocytes [#/volume] in Blo od by Automated countOrdered By: Marychuy Kyle on 10-06-2023 WBC (Bld) [#/Vol] 7.4 10*3/uL Normal 3.8-11.6 [facility] Comment on above: Performed By: #### C BC, CMP, HCGQNT #### [facility] [address] [place] [address] [place] Lymphocytes [#/volume] in Bl ood by Automated countOrdered By: Marychuy Kyle on 10-06-2023 Lymphocytes (Bld) [#/Vol] 2.8 10*3/uL Normal 1.00-4.8 [facility] Comment on above: Performed By: #### C BC, CMP, HCGQNT #### [facility] [address] [place] [address] [place] Lymphocytes/100 leukocytes i n Blood by Automated countOrdered By: Marychuy Kyle on 10-06-2023 Lymphocytes/100 WBC (Bld) 37.6 % Normal . [facility] Comment on above: Performed By: #### C BC, CMP, HCGQNT #### [facility] [address] [place] [address] MCH [Entitic mass] by Automa inocencia countOrdered By: Marychuy Jeronimoimore on 10-06-2023 MCH (RBC) [Entitic mass] 31.0 pg Normal 24.7-34.3 [facility] Comment on above: Performed By: #### C BC, CMP, HCGQNT #### [address] MCHC Auto (RBC) [Mass/Vol]Or dered By: Marychuy Bullimore on 10-06-2023 MCHC (RBC) [Mass/Vol] 34.4 g/dL 32.0-35.0 [facility] MCV [Entitic volume] by Auto mated countOrdered By: Marychuy Kyle on 10-06-2023 MCV (RBC) [Entitic vol] 90.1 fL Normal 80-100 [facility] Comment on above: Performed By: #### C BC, CMP, HCGQNT #### [address] Monocyte distribution width [Entitic volume] in Blood by AutomatedOrdered By: Marychuy Kyle on 10-06-2023 Monocyte distribution width Auto (Bld) [Entitic vol] 17.37 % 0.00-20.00 [facility] Neutrophils [#/volume] in Bl ood by Automated countOrdered By: Marychuy Kyle on 10-06-2023 Neutrophils (Bld) [#/Vol] 4.0 10*3/uL Normal 1.8-7.7 [facility] Comment on above: Performed By: #### C BC, CMP, HCGQNT #### [address] Nitrite Test strip Ql (U)Ord ered By: Marychuy Kyle on 10-06-2023 Nitrite Ql (U) Negative Negative [facility] No Panel InformationOrdered By: Marychuy Kyle on 10-06-2023 Estimated GFR (CKD-EPI) > 60.0 mL/Min [facility] Creatinine Clearance (Chem 180.48 [facility] Nucleated erythrocytes [Pres ence] in Blood by Automated countOrdered By: Marychuy Kyle on 10-06-2023 Nucleated RBC Auto Ql (Bld) 0.2 /100{WBC} 0-0.5 [facility] Platelet mean volume [Entiti c volume] in Blood by Automated countOrdered By: Marychuy Bullimore on 10-06-2023 Platelet mean volume (Bld) [Entitic vol] 7.5 fL Normal 6.3-10.7 [facility] Comment on above: Performed By: #### C BC, CMP, HCGQNT #### [facility] [address] [place] [address] [place] Platelets [#/volume] in Bloo d by Automated countOrdered By: Marychuy Kyle on 10-06-2023 Platelets (Bld) [#/Vol] 367 10*3/uL Normal 150-450 [facility] Comment on above: Performed By: #### C BC, CMP, HCGQNT #### [facility] [address] [place] [address] [place] Potassium [Moles/volume] in Serum or PlasmaOrdered By: Marychuy Kyle on 10-06-2023 Potassium [Moles/Vol] 4.1 mmol/L Normal 3.5-5.1 [facility] Comment on above: Performed By: #### C BC, CMP, HCGQNT #### [facility] [address] [place] [address] [place] Protein Auto test strip (U) [Mass/Vol]Ordered By: Marychuy Kyle on 10-06-2023 Protein (U) [Mass/Vol] Negative Negative [facility] Protein [Mass/volume] in Ser um or PlasmaOrdered By: Marychuy Phaniimore on 10-06-2023 Protein [Mass/Vol] 7.4 g/dL Normal 6.4-8.9 [facility] Comment on above: Performed By: #### C BC, CMP, HCGQNT #### [facility] [address] [place] [address] Serum globulin measurement b y calculation (mass/volume)Ordered By: Marychuy Anabella on 10-06-2023 Globulin (S) [Mass/Vol] 3.6 g/dL [facility] Comment on above: Performed By: #### C BC, CMP, HCGQNT #### [facility] [address] [place] [address] Serum or plasma albumin/glob ulin mass ratioOrdered By: Marychuy Bullimore on 10-06-2023 Albumin/Globulin [Mass ratio] 1.1 {ratio} [facility] Comment on above: Performed By: #### C BC, CMP, HCGQNT #### [address] Serum or plasma anion gap de terminationOrdered By: Marychuy Anabella on 10-06-2023 Anion gap [Moles/Vol] 12.6 mmol/L Normal 6.0-15.0 [facility] Comment on above: Performed By: #### C BC, CMP, HCGQNT #### [facility] [address] [place] [address] Sodium [Moles/volume] in Ser um or PlasmaOrdered By: Marychuy Anabella on 10-06-2023 Sodium [Moles/Vol] 139 mmol/L Normal 136-145 [facility] Comment on above: Performed By: #### C BC, CMP, HCGQNT #### [facility] [address] [place] [address] Specific gravity Auto test s trip (U) [Rel density]Ordered By: Marychuy Anabella on 10-06-2023 Specific gravity (U) [Rel density] 1.017 1.001-1.030 [facility] Urea nitrogen [Mass/volume] in Serum or PlasmaOrdered By: Marychuy Jeronimosariah on 10-06-2023 Urea nitrogen [Mass/Vol] 7 mg/dL Normal 7-25 [facility] Comment on above: Performed By: #### C BC, CMP, HCGQNT #### [facility] [address] [place] [address] [place] Urine clarity by refractomet ry automatedOrdered By: Marychuy Kyle on 10-06-2023 Clarity Refractometry automated (U) Clear Clear [facility] Urine glucose measurement by automated test strip (mass/volume)Ordered By: Marychuy Kyle on 10-06-2023 Glucose Auto test strip (U) [Mass/Vol] Normal mg/dL Normal [facility] Urine hemoglobin detection b y automated test stripOrdered By: Marychuy Kyle on 10-06-2023 Hemoglobin Auto test strip Ql (U) Negative Negative [facility] Urine leukocyte esterase det ection by automated test stripOrdered By: Marychuy Kyle on 10-06-2023 Leukocyte esterase Auto test strip Ql (U) 1+ Negative [facility] Urine pH measurement by auto mated test stripOrdered By: Marychuy Klye on 10-06-2023 pH (U) 7.0 [pH] Normal 5.0-9.0 [facility] Comment on above: Order Comment: NEED MORE SPECIMEN Name Collection Type:: Clean-Voided Midstream Performed By: #### A DDONUAPLUS #### [address] Urobilinogen Auto test strip (U) [Mass/Vol]Ordered By: Marychuy Kyle on 10-06-2023 Urobilinogen (U) [Mass/Vol] Normal mg/dL Normal [facility] 09-11-2023 MERONN Telephone (MARTIN) -------- JALEESA ARRIETA ([id number]) 1990 F Date Time Provider Department 09/11/23 TONYA SENIOR During your visit today, we recorded the following information about you: Tonya Senior, FRED[employer] 09/11/2023 11:19 AM Signed Attempted to call [...] Date Reviewed: 08/20/2023 Reviewed by: Tonya Senior APRN.[employer] - Fully Assessed Reason for Visit: Results [...] Status:Closed by TONYA SENIOR on 09/23/23 Normal [facility] NICOTINE AND METAB, URon URIN ANABASINE QUANT <5 Normal [facility] Comment on above: Order Comment: Speci men Type: URINE SPECIMEN Ordering Facility: [facility] Address: [address] [place] [address] Performed By: #### U NICOT #### [facility] CLIA [id number] [address] [place] [address] URIN COTININE QUANT <15 Normal [facility] Comment on above: Order Comment: Speci men Type: URINE SPECIMEN Ordering Facility: [facility] Address: [address] [place] [address] Performed By: #### U NICOT #### [facility] CLIA [id number] [address] [place] [address] URIN NICOTINE QUANT <15 Normal [facility] Comment on above: Order Comment: Speci men Type: URINE SPECIMEN Ordering Facility: [facility] Address: [address] [place] [address] Result Comment: INTE RPRETIVE INFORMATION: Nicotine and Metabolites, Urine, Quantitative Methodology: Quantitative Liquid Chromatography-Tandem Mass Spectrometry Positive cutoff: Nicotine 15 ng/mL Cotinine 15 ng/mL [id number] 50 ng/mL Anabasine 5 ng/mL For medical [...] developed and its performance characteristics determined by [facility]. It has not been cleared or approved by the [place] Food and Drug Administration. This test was performed in a CLIA certified laboratory and is intended for clinical purposes. Performed By: [facility] [address] [place] [address] School Supervisor: Rex Zuleta MD, PhD CLIA Number: [id number] Performed By: #### U NICOT #### [facility] CLIA [id number] [address] [place] [address] URINE 3 [place] COTININE <50 Normal [facility] Comment on above: Order Comment: Speci men Type: URINE SPECIMEN Ordering Facility: [facility] Address: [address] [place] [address] Performed By: #### U NICOT #### [facility] [id number] [address] [place] [address] TOXICOLOGY SCREEN, ROUTINE U RINEon 09-08-2023 Amphetamines Confirm (U) [Mass/Vol] Negative Normal Negative [facility] Comment on above: Order Comment: Speci men Type: URINE SPECIMEN Ordering Facility: [facility] Address: [address] [place] [address] Result Comment: Cuto ff threshold at 1000 ng/mL. Performed By: #### U TOX2 #### [facility] CLIA [id number] [address] [place] [address] [place] BARBITURATES, URINE Negative Normal Negative [facility] Comment on above: Order Comment: Speci men Type: URINE SPECIMEN Ordering Facility: [facility] Address: [address] [place] [address] Result Comment: Cuto ff threshold at 200 ng/mL. Performed By: #### U TOX2 #### [facility] CLIA [id number] [address] [place] [address] [place] BENZODIAZEPINES, UR Negative Normal Negative [facility] Comment on above: Order Comment: Speci men Type: URINE SPECIMEN Ordering Facility: [facility] Address: [address] [place] [address] Result Comment: Cuto ff threshold at 200 ng/mL. Performed By: #### U TOX2 #### [facility] CLIA [id number] [address] [place] [address] [place] Cannabinoids Screen Ql (U) Negative Normal Negative [facility] Comment on above: Order Comment: Speci men Type: URINE SPECIMEN Ordering Facility: [facility] Address: [address] [place] [address] Result Comment: Cuto ff threshold at 50 ng/mL. Performed By: #### U TOX2 #### [facility] CLIA [id number] [address] [place] [address] [place] Cocaine Ql (U) Negative Normal Negative [facility] Comment on above: Order Comment: Speci men Type: URINE SPECIMEN Ordering Facility: [facility] Address: [address] [place] [address] Result Comment: Cuto ff threshold at 300 ng/mL. Performed By: #### U TOX2 #### [facility] CLIA [id number] [address] [place] [address] [place] Ethanol (U) [Mass/Vol] <11 Normal <11 [facility] Comment on above: Order Comment: Speci men Type: URINE SPECIMEN Ordering Facility: [facility] Address: [address] [place] [address] Performed By: #### U TOX2 #### [facility] CLIA [id number] [address] [place] [address] [place] Opiates Screen Ql (U) Negative Normal Negative [facility] Comment on above: Order Comment: Speci men Type: URINE SPECIMEN Ordering Facility: [facility] Address: [address] [place] [address] Result Comment: Cuto ff threshold at 300 ng/mL. Performed By: #### U TOX2 #### [facility] CLIA [id number] [address] [place] [address] [place] oxyCODONE cutoff Screen (U) [Mass/Vol] Negative Normal Negative [facility] Comment on above: Order Comment: Speci men Type: URINE SPECIMEN Ordering Facility: [facility] Address: [address] [place] [address] Result Comment: Cuto ff threshold at 100 ng/mL. Performed By: #### U TOX2 #### [facility] CLIA [id number] [address] [place] [address] [place] Phencyclidine Ql (U) Negative Normal Negative [facility] Comment on above: Order Comment: Speci men Type: URINE SPECIMEN Ordering Facility: [facility] Address: [address] [place] [address] Result Comment: Cuto ff threshold at 25 ng/mL. Performed By: #### U TOX2 #### [facility] CLIA [id number] [address] [place] [address] [place] 25(OH)D3 SerPl-ncon 2023 25-hydroxyvitamin D3 [Mass/Vol] 11.9 ng/mL Low 31.0-80.0 [facility] Comment on above: Order Comment: Speci men Type: BLOOD SPECIMEN Ordering Facility: [facility] Address: [address] [place] [address] Performed By: #### 2 276-4, 2131-9, 2283-8 #### [facility] CLIA [id number] [address] [place] [address] [place] CBC W Auto Differential pane l (Bld)on 09-05-2023 Basophils (Bld) [#/Vol] 10*3/uL Normal <0.11 [facility] Comment on above: Order Comment: Speci men Type: BLOOD SPECIMEN Ordering Facility: [facility] Address: [address] [place] [address] Performed By: #### 2 276-4, 2131-9, 2283-8 #### [facility] CLIA [id number] [address] [place] [address] [place] Basophils/100 WBC (Bld) 0.3 % Normal [facility] Comment on above: Order Comment: Speci men Type: BLOOD SPECIMEN Ordering Facility: [facility] Address: [address] [place] [address] Performed By: #### 2 276-4, 2132-01, 2283-12 #### [facility] CLIA [id number] [address] [place] [address] [place] Differential cell count method Nom (Bld) Auto Normal [facility] Comment on above: Order Comment: Speci men Type: BLOOD SPECIMEN Ordering Facility: [facility] Address: [address] [place] [address] Performed By: #### 2 276-4, 2132-01, 2283-12 #### [facility] CLIA [id number] [address] [place] [address] [place] Eosinophils (Bld) [#/Vol] 0.09 10*3/uL Normal <0.46 [facility] Comment on above: Order Comment: Speci men Type: BLOOD SPECIMEN Ordering Facility: [facility] Address: [address] [place] [address] Performed By: #### 2 276-4, 2132-01, 2283-12 #### [facility] CLIA [id number] [address] [place] [address] [place] Eosinophils/100 WBC (Bld) 1.3 % Normal [facility] Comment on above: Order Comment: Speci men Type: BLOOD SPECIMEN Ordering Facility: [facility] Address: [address] [place] [address] Performed By: #### 2 276-4, 2132-01, 2283-12 #### [facility] CLIA [id number] [address] [place] [address] [place] Erythrocyte distribution width (RBC) [Ratio] 12.6 % Normal 11.5-15.0 [facility] Comment on above: Order Comment: Speci men Type: BLOOD SPECIMEN Ordering Facility: [facility] Address: [address] [place] [address] Performed By: #### 2 276-4, 2132-01, 2283-12 #### [facility] CLIA [id number] [address] [place], [place] [address] [place] Hematocrit (Bld) [Volume fraction] 38.0 % Normal 36.0-46.0 [facility] Comment on above: Order Comment: Speci men Type: BLOOD SPECIMEN Ordering Facility: [facility] Address: [address] [place] [address] Performed By: #### 2 276-4, 2132-01, 2283-12 #### [facility] CLIA [id number] [address] [place] [address] [place] Hemoglobin (Bld) [Mass/Vol] 12.8 g/dL Normal 11.5-15.5 [facility] Comment on above: Order Comment: Speci men Type: BLOOD SPECIMEN Ordering Facility: [facility] Address: [address] [place] [address] Performed By: #### 2 276-4, 2132-01, 2283-12 #### [facility] CLIA [id number] [address] [place] [address] [place] Immature granulocytes (Bld) [#/Vol] 10*3/uL Normal <0.10 [facility] Comment on above: Order Comment: Speci men Type: BLOOD SPECIMEN Ordering Facility: [facility] Address: [address] [place] [address] Performed By: #### 2 276-4, 2132-01, 2283-12 #### [facility] CLIA [id number] [address] [place] [address] [place] Immature granulocytes/100 WBC (Bld) 0.1 % Normal [facility] Comment on above: Order Comment: Speci men Type: BLOOD SPECIMEN Ordering Facility: [facility] Address: [address] [place] [address] Performed By: #### 2 276-4, 2132-01, 2283-12 #### [facility] CLIA [id number] [address] [place] [address] [place] Lymphocytes (Bld) [#/Vol] 3.49 10*3/uL Normal 1.00-4.00 [facility] Comment on above: Order Comment: Speci men Type: BLOOD SPECIMEN Ordering Facility: [facility] Address: [address] [place] [address] Performed By: #### 2 276-4, 2132-01, 2283-12 #### [facility] CLIA [id number] [address] [place] [address] [place] Lymphocytes/100 WBC (Bld) 48.6 % Normal [facility] Comment on above: Order Comment: Speci men Type: BLOOD SPECIMEN Ordering Facility: [facility] Address: [address] [place] [address] Performed By: #### 2 276-4, 2132-01, 2283-12 #### [facility] CLIA [id number] [address] [place] [address] [place] MCH (RBC) [Entitic mass] 30.0 pg Normal 26.0-34.0 [facility] Comment on above: Order Comment: Speci men Type: BLOOD SPECIMEN Ordering Facility: [facility] Address: [address] [place] [address] Performed By: #### 2 276-4, 2132-01, 2283-12 #### [facility] CLIA [id number] [address] [place] [address] [place] MCHC (RBC) [Mass/Vol] 33.7 g/dL Normal 30.5-36.0 [facility] Comment on above: Order Comment: Speci men Type: BLOOD SPECIMEN Ordering Facility: [facility] Address: [address] [place] [address] Performed By: #### 2 276-4, 2132-01, 2283-12 #### [facility] CLIA [id number] [address] [place] [address] [place] MCV (RBC) [Entitic vol] 89.2 fL Normal 80.0-100.0 [facility] Comment on above: Order Comment: Speci men Type: BLOOD SPECIMEN Ordering Facility: [facility] Address: [address] [place] [address] Performed By: #### 2 276-4, 2132-01, 2283-12 #### [facility] CLIA [id number] [address] [place] [address] [place] Monocytes (Bld) [#/Vol] 0.48 10*3/uL Normal <0.87 [facility] Comment on above: Order Comment: Speci men Type: BLOOD SPECIMEN Ordering Facility: [facility] Address: [address] [place] [address] Performed By: #### 2 276-4, 2132-01, 2283-12 #### [facility] CLIA [id number] [address] [place] [address] [place] Monocytes/100 WBC (Bld) 6.7 % Normal [facility] Comment on above: Order Comment: Speci men Type: BLOOD SPECIMEN Ordering Facility: [facility] Address: [address] [place] [address] Performed By: #### 2 276-4, 2132-01, 2283-12 #### [facility] CLIA [id number] [address] [place] [address] [place] Neutrophils (Bld) [#/Vol] 3.09 10*3/uL Normal 1.45-7.50 [facility] Comment on above: Order Comment: Speci men Type: BLOOD SPECIMEN Ordering Facility: [facility] Address: [address] [place] [address] Performed By: #### 2 276-4, 2132-01, 2283-12 #### [facility] CLIA [id number] [address] [place] [address] [place] Neutrophils/100 WBC (Bld) 43.0 % Normal [facility] Comment on above: Order Comment: Speci men Type: BLOOD SPECIMEN Ordering Facility: [facility] Address: [address] [place] [address] Performed By: #### 2 276-4, 2132-01, 2283-12 #### [facility] CLIA [id number] [address] [place] [address] [place] Nucleated RBC (Bld) [#/Vol] 10*3/uL Normal <0.01 [facility] Comment on above: Order Comment: Speci men Type: BLOOD SPECIMEN Ordering Facility: [facility] Address: [address] [place] [address] Performed By: #### 2 276-4, 2132-01, 2283-12 #### [facility] CLIA [id number] [address] [place] [address] [place] Nucleated RBC/100 WBC (Bld) [Ratio] 0.0 /[address] [facility] Comment on above: Order Comment: Speci men Type: BLOOD SPECIMEN Ordering Facility: [facility] Address: [address] [place] [address] Performed By: #### 2 276-4, 2132-01, 2283-12 #### [facility] CLIA [id number] [address] [place] [address] [place] Platelet mean volume (Bld) [Entitic vol] 9.2 fL Normal 9.0-12.7 [facility] Comment on above: Order Comment: Speci men Type: BLOOD SPECIMEN Ordering Facility: [facility] Address: [address] [place] [address] Performed By: #### 2 276-4, 2132-01, 2283-12 #### [facility] CLIA [id number] [address] [place] [address] [place] Platelets (Bld) [#/Vol] 361 10*3/uL Normal 150-400 [facility] Comment on above: Order Comment: Speci men Type: BLOOD SPECIMEN Ordering Facility: [facility] Address: [address] [place] [address] Performed By: #### 2 276-4, 2132-01, 2283-12 #### [facility] CLIA [id number] [address] [place] [address] [place] RBC (Bld) [#/Vol] 4.26 10*6/uL Normal 3.90-5.20 [facility] Comment on above: Order Comment: Speci men Type: BLOOD SPECIMEN Ordering Facility: [facility] Address: [address] [place] [address] Performed By: #### 2 276-4, 2132-01, 2283-12 #### [facility] CLIA [id number] [address] [place] [address] [place] WBC (Bld) [#/Vol] 7.18 10*3/uL Normal 3.70-11.00 [facility] Comment on above: Order Comment: Speci men Type: BLOOD SPECIMEN Ordering Facility: [facility] Address: [address] [place] [address] Performed By: #### 2 276-4, 2132-01, 2283-12 #### [facility] CLIA [id number] [address] [place] [address] [place] Comprehensive metabolic 2000 panelon 09-05-2023 Albumin [Mass/Vol] 4.0 g/dL Normal 3.9-4.9 [facility] Comment on above: Order Comment: Speci men Type: BLOOD SPECIMEN Ordering Facility: [facility] Address: [address] [place] [address] Performed By: #### 2 4323-8 #### [facility] CLIA [id number] [address] [place] [address] ALP [Catalytic activity/Vol] 91 U/L Normal 34-123 [facility] Comment on above: Order Comment: Speci men Type: BLOOD SPECIMEN Ordering Facility: [facility] Address: [address] [place], [place] [address] Performed By: #### 2 4323-8 #### [facility] CLIA [id number] [address] [place] [address] ALT [Catalytic activity/Vol] 15 U/L Normal 7-38 [facility] Comment on above: Order Comment: Speci men Type: BLOOD SPECIMEN Ordering Facility: [facility] Address: [address] [place] [address] Performed By: #### 2 4323-8 #### [facility] CLIA [id number] [address] [place] [address] Anion gap [Moles/Vol] 10 mmol/L Normal 9-18 [facility] Comment on above: Order Comment: Speci men Type: BLOOD SPECIMEN Ordering Facility: [facility] Address: [address] [place] [address] Performed By: #### 2 4323-8 #### [facility] CLIA [id number] [address] [place] [address] AST [Catalytic activity/Vol] 13 U/L Normal 13-35 [facility] Comment on above: Order Comment: Speci men Type: BLOOD SPECIMEN Ordering Facility: [facility] Address: [address] [place] [address] Performed By: #### 2 4323-8 #### [facility] CLIA [id number] [address] [place] [address] Bilirubin [Mass/Vol] 0.3 mg/dL Normal 0.2-1.3 [facility] Comment on above: Order Comment: Speci men Type: BLOOD SPECIMEN Ordering Facility: [facility] Address: [address] [place], [place] [address] Performed By: #### 2 4323-8 #### [facility] CLIA [id number] [address] [place] [address] Calcium [Mass/Vol] 9.5 mg/dL Normal 8.5-10.2 [facility] Comment on above: Order Comment: Speci men Type: BLOOD SPECIMEN Ordering Facility: [facility] Address: [address] [place], [place] [address] Performed By: #### 2 4323-8 #### [facility] CLIA [id number] [address] [place] [address] Chloride [Moles/Vol] 106 mmol/L High 97-105 [facility] Comment on above: Order Comment: Speci men Type: BLOOD SPECIMEN Ordering Facility: [facility] Address: [address] [place] [address] Performed By: #### 2 4323-8 #### [facility] CLIA [id number] [address] [place] [address] CO2 [Moles/Vol] 26 mmol/L Normal 22-30 [facility] Comment on above: Order Comment: Speci men Type: BLOOD SPECIMEN Ordering Facility: [facility] Address: [address] [place] [address] Performed By: #### 2 4323-8 #### [facility] CLIA [id number] [address] [place] [address] Creatinine [Mass/Vol] 0.75 mg/dL Normal 0.58-0.96 [facility] Comment on above: Order Comment: Speci men Type: BLOOD SPECIMEN Ordering Facility: [facility] Address: [address] [place] [address] Performed By: #### 2 4323-8 #### [facility] CLIA [id number] [address] [place] [address] Creatinine and Glomerular filtration rate.predicted panel (S/P/Bld) 109 mL/min/1.73m??? Normal >=60 [facility] Comment on above: Order Comment: Laury bradshaw Type: BLOOD SPECIMEN Ordering Facility: [facility] Address: [address] [id number] Result Comment: Stephani mated Glomerular Filtration Rate [...] 2 4323-8 #### [facility] CLIA [id number] [address] [place] [address] Glucose [Mass/Vol] 104 mg/dL High 74-99 [facility] Comment on above: Order Comment: Laury bradshaw Type: BLOOD SPECIMEN Ordering Facility: [facility] Address: [address] [place] [address] Result Comment: The [place] Diabetes Association (ADA) provides guidance for cutoff [...] Standards of Medical Care in Diabetes 2016, [place] Diabetes Association. Diabetes Care. 2016.39(Suppl 1). Performed By: #### 2 4323-8 #### [facility] CLIA [id number] [address] [place] [address] Potassium [Moles/Vol] 4.2 mmol/L Normal 3.7-5.1 [facility] Comment on above: Order Comment: Laury bradshaw Type: BLOOD SPECIMEN Ordering Facility: [facility] Address: [address] [facility] [place] [phone] Performed By: #### 2 4323-8 #### [facility] CLIA [id number] [address] [place] [address] Protein [Mass/Vol] 7.4 g/dL Normal 6.3-8.0 [facility] Comment on above: Order Comment: Speci men Type: BLOOD SPECIMEN Ordering Facility: [facility] Address: [address] [place] [address] Performed By: #### 2 4323-8 #### [facility] CLIA [id number] [address] [place] [address] Sodium [Moles/Vol] 142 mmol/L Normal 136-144 [facility] Comment on above: Order Comment: Speci men Type: BLOOD SPECIMEN Ordering Facility: [facility] Address: [address] [place] [address] Performed By: #### 2 4323-8 #### [facility] CLIA [id number] [address] [place] [address] Urea nitrogen [Mass/Vol] 12 mg/dL Normal 7-21 [facility] Comment on above: Order Comment: Speci men Type: BLOOD SPECIMEN Ordering Facility: [facility] Address: [address] [place] [address] Performed By: #### 2 4323-8 #### [facility] CLIA [id number] [address] [place] [address] Ferritin SerPl-mCncon 2023 Ferritin [Mass/Vol] 86.7 ng/mL Normal 14.7-205.1 [facility] Comment on above: Order Comment: Speci men Type: BLOOD SPECIMEN Ordering Facility: [facility] Address: [address] [place] [address] Performed By: #### 2 276-4, 2132-9, 2284-8 #### [facility] CLIA [id number] [address] [facility] [place] [address] [place] Folate SerPl-mCncon 09-05-19 Folate [Mass/Vol] 12.0 ng/mL Normal >4.7 [facility] Comment on above: Order Comment: Laury bradshaw Type: BLOOD SPECIMEN Ordering Facility: [facility] Address: [address] [place] [address] Performed By: #### 2 276-4, 2131-9, 8 #### [facility] CLIA [id number] [address] [place] [address] [place] H. pylori IgG IA Qlon 2023 H. PYLORI IGG, QUAL Negative Normal Negative [facility] Comment on above: Order Comment: Laury bradshaw Type: BLOOD SPECIMEN Ordering Facility: [facility] Address: [address] [place] [address] Result Comment: Cash ot exclude H. pylori infection if the specimen collected 3-4 weeks after onset of symptoms. Performed By: #### 2 276-4, 9, 2283-12 #### [facility] CLIA [id number] [address] [place] [address] [place] HbA1c (Bld)on 09-05-2023 Average glucose Estimated from glycated hemoglobin (Bld) [Mass/Vol] 108 mg/dL Normal [facility] Comment on above: Order Comment: Laury bradshaw Type: BLOOD SPECIMEN Ordering Facility: [facility] Address: [address] [place] [address] Result Comment: eAG: (Estimated average glucose) is a calculated value from HgbA1c and is patient financial representative of the average blood glucose level in the last 2-3 month period. Performed By: #### 5 5454-3 #### [facility] CLIA [id number] [address] [place] [address] [place] HbA1c (Bld) [Mass fraction] 5.4 % Normal 4.3-5.6 [facility] Comment on above: Order Comment: Laury bradshaw Type: BLOOD SPECIMEN Ordering Facility: [facility] Address: [address] [place] [address] Result Comment: Amer [place] Diabetes Association guidelines indicate that patients with HgbA1c in the range 5.7-6.4% are at increased risk for development of diabetes, and intervention by lifestyle modification may be beneficial. HgbA1c greater or equal to 6.5% is considered diagnostic of diabetes. Performed By: #### 5 5454-3 #### [facility] CLIA [id number] [address] [place] [address] [place] Iron and Iron binding capaci ty panelon 09-05-2023 Iron [Mass/Vol] 94 ug/dL Normal 41-186 [facility] Comment on above: Order Comment: Speci men Type: BLOOD SPECIMEN Ordering Facility: [facility] Address: [address] [place] [address] Performed By: #### 5 0190-8, 3016-3, 90234-2 #### [facility] CLIA [id number] [address] [place] [address] [place] #### 95947-7 #### [facility] CLIA [id number] [address] [place] [address] [place] [facility] CLIA [id number] [address] [place] [address] Iron binding capacity [Mass/Vol] 310 ug/dL Normal 232-386 [facility] Comment on above: Order Comment: Speci men Type: BLOOD SPECIMEN Ordering Facility: [facility] Address: [address] [place] [address] Performed By: #### 5 0190-8, 6-3, 45473-9 #### [facility] CLIA [id number] [address] [place] [address] [place] #### 20741-2 #### [facility] CLIA [id number] [address] [place], [place] [address] [place] [facility] CLIA [id number] [address] [place] [address] Iron/TIBC [Molar ratio] 30.3 % Normal 15.0-57.0 [facility] Comment on above: Order Comment: Speci men Type: BLOOD SPECIMEN Ordering Facility: [facility] Address: [address] [place] [address] Performed By: #### 5 0190-8, 3016-3, 42677-7 #### [facility] CLIA [id number] [address] [place] [address] [place] #### 87806-2 #### [facility] CLIA [id number] [address] [place] [address] [place] [facility] CLIA [id number] [address] [place] [address] Lipid 1996 panelon 4 Cholesterol [Mass/Vol] 179 mg/dL Normal <200 [facility] Comment on above: Order Comment: Speci men Type: BLOOD SPECIMEN Ordering Facility: [facility] Address: [address] [place] [address] Result Comment: <200 mg/dL, Desirable 200-239 mg/dL, Borderline high >239 mg/dL, High Performed By: #### 2 276-4, 2132-01, 2283-12 #### [facility] CLIA [id number] [address] [place] [address] [place] Cholesterol in HDL [Mass/Vol] 45 mg/dL Normal >39 [facility] Comment on above: Order Comment: Speci men Type: BLOOD SPECIMEN Ordering Facility: [facility] Address: [address] [place] [address] Result Comment: 40-5 9 mg/dL, Acceptable >59 mg/dL, High: Negative risk factor for coronary heart disease <40 mg/dL, Low: Positive risk factor for coronary heart disease Performed By: #### 2 276-4, 2132-01, 2283-12 #### [facility] CLIA [id number] [address] [place] [address] [place] Cholesterol in LDL [Mass/Vol] 119 mg/dL High <100 [facility] Comment on above: Order Comment: Laury bradshaw Type: BLOOD SPECIMEN Ordering Facility: [facility] Address: [address] [place] [address] Result Comment: <100 mg/dL, Optimal 100-129 mg/dL, Near optimal/above optimal 130-159 mg/dL, Borderline high 160-189 mg/dL, High >189 mg/dL, Very high Secondary prevention optimal LDL Cholesterol levels are recommended to be < 70 mg/dL Performed By: #### 2 276-4, 2132-01, 2283-12 #### [facility] CLIA [id number] [address] [place] [address] [place] Cholesterol in LDL/Cholesterol in HDL [Mass ratio] 2.64 {ratio} High <2.54 [facility] Comment on above: Order Comment: Laury bradshaw Type: BLOOD SPECIMEN Ordering Facility: [facility] Address: [address] [place] [address] Result Comment: Belinda degroot: 1. National Cholesterol Education Program ATP III Guideline At-A-Glance Quick Desk Reference: National Heart, Lung, and Blood [place]. National Institutes of Health. 2001: NIH Publication No. 01-3305. 2. An International Atherosclerosis Society position paper: global recommendations for the management of dyslipidemia: executive summary, Atherosclerosis. 2014: 232(2):410-413. Performed By: #### 2 276-4, 2132-01, 2283-12 #### [facility] CLIA [id number] [address] [place] [address] [place] Cholesterol in VLDL [Mass/Vol] 15 mg/dL Normal <30 [facility] Comment on above: Order Comment: Laury bradshaw Type: BLOOD SPECIMEN Ordering Facility: [facility] Address: [address] [place] [address] Performed By: #### 2 276-4, 2132-01, 2283-12 #### [facility] CLIA [id number] [address] [place] [address] [place] Cholesterol non HDL [Mass/Vol] 134 mg/dL High <130 [facility] Comment on above: Order Comment: Speci men Type: BLOOD SPECIMEN Ordering Facility: [facility] Address: [address] [place] [address] Result Comment: <130 mg/dL, Optimal 130-159 mg/dL, Near optimal/above optimal 160-189 mg/dL, Borderline high 190-219 mg/dL, High >219 mg/dL, Very high Secondary prevention optimal non HDL Cholesterol levels are recommended to be <100 mg/dL Performed By: #### 2 276-4, 2132-01, 2283-12 #### [facility] CLIA [id number] [address] [place] [address] [place] Cholesterol.total/Cho lesterol in HDL [Mass ratio] 3.98 {ratio} Normal <5.10 [facility] Comment on above: Order Comment: Speci men Type: BLOOD SPECIMEN Ordering Facility: [facility] Address: [address] [place] [address] Performed By: #### 2 276-4, 2132-01, 2283-12 #### [facility] CLIA [id number] [address] [place] [address] [place] FASTING TIME [address] [facility] Comment on above: Order Comment: Speci men Type: BLOOD SPECIMEN Ordering Facility: [facility] Address: [address] [place] [address] Performed By: #### 2 276-4, 2132-01, 2283-12 #### [facility] CLIA [id number] [address] [place] [address] [place] Triglyceride [Mass/Vol] 74 mg/dL Normal <150 [facility] Comment on above: Order Comment: Speci men Type: BLOOD SPECIMEN Ordering Facility: [facility] Address: [address] [place] [address] Result Comment: <150 mg/dL, Normal 150-199 mg/dL, Borderline high 200-499 mg/dL, High >499 mg/dL, Very high Performed By: #### 2 276-4, 9, 2283-12 #### [facility] CLIA [id number] [address] [place] [address] [place] NT-proBNP SerPl-mCncon 09-04 Natriuretic peptide.B prohormone N-Terminal [Mass/Vol] 48 pg/mL Normal <125 [facility] Comment on above: Order Comment: Speci men Type: BLOOD SPECIMEN Ordering Facility: [facility] Address: [address] [place] [address] Performed By: #### 2 276-4, 9, 2283-12 #### [facility] CLIA [id number] [address] [place] [address] [place] TSH SerPl-aCncon 09-05-2023 TSH Qn 6.440 m[IU]/L High 0.270-4.200 [facility] Comment on above: Order Comment: Speci men Type: BLOOD SPECIMEN Ordering Facility: [facility] Address: [address] [place] [address] Result Comment: If t he patient is , TSH reference range varies by gestational period: First Trimester (weeks 9-12): 0.180-2.990 mIU/L Second Trimester: 0.110-3.980 mIU/L Third Trimester: 0.480-4.710 mIU/L Seth Crews et al. A Practical Approach for the Verifications and Determination of Site- and Trimester-Specific Reference Intervals for Thyroid Function tests in . Thyroid, 2019:29:3:412-420. Zhang Ybarra, et al. 2017 Guidelines of the [place] Thyroid Association for the Diagnosis and Management of Thyroid Disease during and the . Thyroid, 2017:27:3:315-389. Performed By: #### 2 276-4, 9, 2283-12 #### [facility] CLIA [id number] [address] [place] [address] [place] VITAMIN B1 (THIAMINE), WHOLE BLOODon 09-05-2023 Thiamine (Bld) [Moles/Vol] 179.2 nmol/L Normal 84.3-213.3 [facility] Comment on above: Order Comment: Laury bradshaw Type: BLOOD SPECIMEN Ordering Facility: [facility] Address: [address] [place] [address] Result Comment: This assay measures the concentration of thiamine diphosphate (TDP), the primary active form of vitamin B1. Approximately 90 percent of vitamin B1 present in whole blood is TDP. Thiamine and thiamine monophosphate, which comprise the remaining 10 percent, are not measured. This test was developed and its performance characteristics determined by [facility] [place] ([facility] It has not been cleared or approved by the FDA. [facility] is regulated under CLIA as qualified to perform high-complexity testing. This test is used for clinical purposes. It should not be regarded as investigational or for research. Performed By: #### B 1WB #### [facility] CLIA [id number] [address] [place] [address] [place] Vit B12 [facility] 09-04- 024 Cobalamin (Vitamin B12) [Mass/Vol] 612 pg/mL Normal 232-1245 [facility] Comment on above: Order Comment: Laury bradshaw Type: BLOOD SPECIMEN Ordering Facility: [facility] Address: [address] [place] [address] Performed By: #### 2 276-4, 2132-9, 2284-8 #### [facility] CLIA [id number] [address] [place] [address] [place] Glucose - FINGER STICKon Glucose [Mass/Vol] 5.4 mg/dL Contests4Causes Other PAP ACOG PANEL 2: 30 to 65on 06-10-2022 . . Normal [facility] Comment on above: Result Comment: Perf ormed at: WB Performed By: #### 4 [id number] #### [facility] [place] [facility] [address] [place] [address] Dr. Sachin Coates Age Gdln ACOG Testing 30-65 Normal [facility] Comment on above: Performed By: #### 4 [id number] #### [facility] [place] [facility] [address] [place] [address] Dr. Sachin Coates DIAGNOSIS: Comment Normal [facility] Comment on above: Result Comment: NEGA TIVE FOR INTRAEPITHELIAL LESION OR MALIGNANCY. CELLULAR CHANGES ASSOCIATED WITH INFLAMMATION ARE PRESENT. THIS SPECIMEN WAS RESCREENED PART OF OUR WELLNESS NURSE PROGRAM. Performed at: WB Performed By: #### 4 [id number] #### [facility] [place] [facility] [address] [place] [address] Dr. Sachin Coates HPV Aptima Negative Normal Negative [facility] Comment on above: Result Comment: This nucleic acid amplification test detects fourteen high-risk HPV types (16,18,31,33,35,39,45,51,52,56,58,59,66,68) without differentiation. Performed at: =G Performed By: #### 4 [id number] #### [facility] [place] [facility] [address] [place] [address] Dr. Sachin Coates HPV Genotype Reflex Comment Normal [facility] Comment on above: Result Comment: Crit eria not met, HPV Genotype not performed. Performed at: WB Performed By: #### 4 [id number] #### [facility] [place] [facility] [address] [place] [address] Dr. Sachin Coates Methodology: Comment Normal [facility] Comment on above: Result Comment: This liquid based ThinPrep(R) pap test was screened with the use of an image guided system. Performed at: WB Performed By: #### 4 [id number] #### [facility] [place] [facility] [address] [place] [address] Dr. Sachin Coates Note: Comment Normal [facility] Comment on above: Result Comment: The Pap smear is a screening test designed to aid in the detection of premalignant and malignant conditions of the uterine cervix. It is not a diagnostic procedure and should not be used as the sole means of detecting cervical cancer. Both false-positive and false-negative reports do occur. . Performed at: WB Performed By: #### 4 [id number] #### [facility] [place] [facility] [address] [place] [address] Dr. Sachin Coates Performed by: Comment Normal [facility] Comment on above: Result Comment: Peyton Beverly, [employer] Operator (ASCP) Performed at: WB Performed By: #### 4 [id number] #### [facility] [place] [facility] [address], [place] [address] Dr. Sachin Coates QC reviewed by: Comment Normal [facility] Comment on above: Result Comment: Cielo Cochran, Supervisory Coining Press Operator (ASCP) Performed at: WB Performed By: #### [id number] #### [facility] [place] [facility] [address], [place] [address] Dr. Sachin Coates Specimen adequacy: Comment Normal [facility] Comment on above: Result Comment: Sati sfactory for evaluation. Endocervical and/or squamous metaplastic cells (endocervical component) are present. Performed at: WB Performed By: #### [id number] #### [facility] [place] [facility] [address] [address] [address] Sachin Coates COVID-19 SOFIAOrdered By: Dario To on 12-02-2021 SARS-CoV+SARS-CoV-2 (COVID-19) Ag IA.rapid Ql (Resp) Negative Negative [facility] Comment on above: This is a duplicate Zuleyma SARS Antigen (PAMELLA) result to be used for statistical tracking purpose only. No Panel InformationOrdered By: Ck To on 12-02-2021 SARS Antigen (LFIA) [facility] Chart Updateon 08-08-2020 Chart Update Chart [...] REASSIGNED: Previously Assigned To Fiordaliza Wheeler Madeleine 08 Aug 2020 8:36 AM TASK IN PROGRESS Va Stern - 08 Aug 2020 8:56 AM TASK REASSIGNED: Previously Assigned To Va Stern Signatures Electronically signed by : RADHA Cmapos; Aug 08 2020 10:18AM EST (Author) Normal [employer] EMPLOYMENT EVALUATOR/CASE MANAGER - Procedure Visiton 0 07-10-2020 EMPLOYMENT EVALUATOR/CASE MANAGER - Procedure Visit Chief Complaint IUI Active [...] Touchworks ESTRADIOLon 07-08-2020 ESTRADIOL 186 pg/mL Normal [facility] Comment on above: Result Comment: Estr adiol measurement is performed using the Shruthi [employer] Access Sensitive Estradiol Immunoassay. Estradiol testing is performed using a different test methodology at [facility] than other [facility]. Direct result comparison should only be made within the same method. REF VALUES EARLY FOLLICULAR 22-115 MID FOLLICULAR 25-115 OVULATORY PEAK 32-517 MID LUTEAL 37-246 POSTMENOPAUSE <15- 25 MALE <15- 32 Performed By: #### G [facility] #### [facility] [address] [place] [address] Estradiol, Serumon 1 E2 [Mass/Vol] 186 pg/mL MG-OBGYN-Ri an 310 IVF Work Phone: Comment on above: Estradiol measuremen t is performed using the Shruthi [employer] Access Sensitive Estradiol Immunoassay. Estradiol testing is performed using a different test methodology at [facility] than other [facility]. Direct result comparison should only be made within the same method.REF VALUESEARLY FOLLICULAR 22-115MID FOLLICULAR 25-115OVULATORY PEAK 32-517MID LUTEAL 37-246POSTMENOPAUSE <15- 25MALE <15- 32 LUTEINIZING HORMONEon 2020 LUTEINIZING HORMONE 9.5 IU/L Normal [facility] Comment on above: Result Comment: Lute inizing Hormone [LH] is performed using the Shruthi Culturalite Access Immunoassay. LH testing is performed using a different test methodology at [facility] than other [facility]. Direct result comparison should only be made within the same method. REF VALUES FOLLICULAR PHASE 1.5-10.0 MID-CYCLE 13.0-72.0 LUTEAL PHASE 0.5-13.0 MENOPAUSE 15.0-65.0 PREPUBERTY 0- 3.0 CHILDREN 0- 6.0 ADULT MALE 1.0- 9.0 Performed By: #### G [facility] #### [facility] [address] [place] [address] Luteinizing Hormone, Serumon 07-08-2020 Lutropin Qn 9.5 {IU/L} VH-TORAH-Kocy an 310 IVF Work Phone: Comment on above: Luteinizing Hormone [LH] is performed using the Agenda Access Immunoassay. LH testing is performed using a different test methodology at [facility] than other [facility]. Direct result comparison should only be made within the same method.REF VALUESFOLLICULAR PHASE 1.5-10.0MID-CYCLE 13.0-72.0LUTEAL PHASE 0.5-13.0MENOPAUSE 15.0-65.0PREPUBERTY 0- 3.0CHILDREN 0- 6.0ADULT MALE 1.0- 9.0 TYPE + SCREENon 07-06-2020 ABO TYPE A Normal [facility] Comment on above: Performed By: #### T +S #### [facility] [address] [place] [address] RH TYPE Positive Normal [facility] Comment on above: Performed By: #### T +S #### [facility] [address] [place] [address] ESTRADIOLon 07-05-2020 ESTRADIOL 58 pg/mL Normal [facility] Comment on above: Result Comment: Estr adiol measurement is performed using the Shruthi [employer] Access Sensitive Estradiol Immunoassay. Estradiol testing is performed using a different test methodology at [facility] than other [facility]. Direct result comparison should only be made within the same method. REF VALUES EARLY FOLLICULAR 22-115 MID FOLLICULAR 25-115 OVULATORY PEAK 32-517 MID LUTEAL 37-246 POSTMENOPAUSE <15- 25 MALE <15- 32 Performed By: #### [facility] #### [facility] [address] [place] [address] Estradiol, Serumon E2 [Mass/Vol] 58 pg/mL MG-OBGYN-Ri sm an 310 IVF Work Phone: Comment on above: Estradiol measuremen t is performed using the Shruthi [employer] Access Sensitive Estradiol Immunoassay. Estradiol testing is performed using a different test methodology at [facility] than other [facility]. Direct result comparison should only be made within the same method.REF VALUESEARLY FOLLICULAR 22-115MID FOLLICULAR 25-115OVULATORY PEAK 32-517MID LUTEAL 37-246POSTMENOPAUSE <15- 25MALE <15- 32 Hematologyon 07-05-2020 ABO group Nom (Bld) A MG-BOAT FUELER-Rism an 310 IVF Work Phone: Blood group antibody screen Ql Negative KH-LHWFG-Zdqo an 310 IVF Work Phone: Rh immune globulin screen (Bld) [Interp] Positive MG-OBGYN-R ism an 310 IVF Work Phone: LUTEINIZING HORMONEon 2020 LUTEINIZING HORMONE 9.2 IU/L Normal [facility] Comment on above: Result Comment: Lute inizing Hormone [LH] is performed using the Shruthi Culturalite Access Immunoassay. LH testing is performed using a different test methodology at [facility] than other [facility]. Direct result comparison should only be made within the same method. REF VALUES FOLLICULAR PHASE 1.5-10.0 MID-CYCLE 13.0-72.0 LUTEAL PHASE 0.5-13.0 MENOPAUSE 15.0-65.0 PREPUBERTY 0- 3.0 CHILDREN 0- 6.0 ADULT MALE 1.0- 9.0 Performed By: #### L #### [facility] [address] [place] [address] Luteinizing Hormone, Serumon 07-05-2020 Lutropin Qn 9.2 {IU/L} FH-KGDTN-Rfbs an 310 IVF Work Phone: Comment on above: Luteinizing Hormone [LH] is performed using the Shruthi [employer] Access Immunoassay. LH testing is performed using a different test methodology at [facility] than other [facility]. Direct result comparison should only be made within the same method.REF VALUESFOLLICULAR PHASE 1.5-10.0MID-CYCLE 13.0-72.0LUTEAL PHASE 0.5-13.0MENOPAUSE 15.0-65.0PREPUBERTY 0- 3.0CHILDREN 0- 6.0ADULT MALE 1.0- 9.0 EMPLOYMENT EVALUATOR/CASE MANAGER - Office Visiton EMPLOYMENT EVALUATOR/CASE MANAGER - Office Visit Diagnoses/Problems Assessed Morbid obesity [...] MD [facility] [phone] [place] [phone] [place] 1 Amended By: Bayron Mccarty; Jun 19 [...] MD [facility] [phone] [place] [phone] [place] Appointment Duration:. 25 minutes; greater than half of the time was spent on counseling. 1 Amended By: Bayron Mccarty; Jun 19 2020 10:16 AM ESTChief Complaint follow up History of Present Mxsnumt9806/19/2020 9:30AM JALEESA ARRIETA , 30 year is contacted for an (audio-visual, or audio only) Telehealth visit. Today's visit was provided through telemedicine conferencing: Using [employer] platform. Consent: The concept of telemedicine? has [...] is a telehealth appointment Results/Data HCG, Beta Rwerpdxcdkzm56Wgn9160 11:58AMBayron Mccarty Test NameResultFlagReference HCG, Beta Quantitative<2 [...] performed using a different test methodology at [facility] than other [facility]. Direct result comparison should only be made within the same method. REF VALUES NON FEMALE <5 MALES <5 Progesterone, Cwgap92Wss1187 11:58AMBayron Mccarty Test NameResultFlagReference Progesterone, Serum10.5 ng/mL REF VALUES MALE <0.3- 1.2 FOLLICULAR PHASE <0.3- 1.4 LUTEAL PHASE 3.3-25.6 MID-LUTEAL PHASE 4.4-28.0 POSTMENOPAUSAL <0.3- 0.7 FEMALES: 1ST TRIMESTER 11.2- 90.0 2ND TRIMESTER 25.6- 89.4 3RD TRIMESTER 48.4-422.5 . Patients receiving DHEA-S supplements may show false elevation of progesterone for results near 1.0 ng/mL. Contact laboratory at [phone] if alternative testing is needed. CMV IgG and IgM Sn65Pjr6254 11:58AMBayron Mccarty Test NameResultFlagReference CMV IgG AntibodyREACTIVEASee Below Reference Range: NONREACTIVE CMV IGM [id number] 11:58AMBayron Mccarty Test NameResultFlagReference CMV IGM AB<30.00 [...] testing in two or more weeks. Xray Agalwalpukqjcegbbft78Amz 2020 12:00AMBayron Mccarty [Mar 28, 2020 9:43AM Bayron Mccarty] Reason: Unspecified for Xray Hysterosalpingogram Test NameResultFlagReference Xray Hysterosalpingogram Please click on the link to view the study images Anti Mullerian [id number] 12:03PMBayron Mccarty Test NameResultFlagReference Anti Mullerian Hormone6.36 ng/mL For assays employing antibodies, the possibility exists for interference by heterophile antibodies in the samples.1 1.Oswald Crews. Interferences in Immunoassays - still a threat. Clin. Chem. 2000; 46: 4543-0329. This test was developed and its performance characteristics determined by [employer]. It has not been cleared or approved by the Food and Drug Administration. Reference Range: Females 26 - 30y: 1.03 - 11.10 Median 4.20 AMH concentrations of >= 1.06 ng/mL is correlated with a better response to ovarian stimulation, produced more retrievable oocytes and higher odds of live according to Carey et al. Fertility and Sterility. 2010: 94:6944-9588. The current AMH test method correlates with [...] exclude an AMH-secreting ovarian tumor. Rubella IgG Zxmpzqyo88Wyz7600 12:03PMBayron Mccarty Test NameResultFlagReference Rubella IgG AntibodyPOSITIVE [...] TSH WITH REFLEX TO FREE T4 IF [id number] 12:03PMBayron Mccarty Test NameResultFlagReference Thyroid Stimulating Hormone, Serum2.17 mIU/LSee Below Reference Range: 0.44 - 3.98 TSH testing is performed using different testing methodology at [facility] than at other [facility]. Direct result comparisons should only be made within the same method. Varicella Zoster IgG Tunymkjm45Ldd5558 12:03PMBayron Mccarty Test NameResultFlagReference Varicella Zoster IgG [...] altered results in serological assays. Vitamin D 25-Avlbxph51Jlx2914 12:03PMBayron Mccarty Test NameResultFlagReference Vitamin D 25-Hydroxy, Level17 ng/mLA . DEFICIENCY: < 20 NG/ML INSUFFICIENCY: 20-29 NG/ML SUFFICIENCY: 30-100 NG/ML THIS ASSAY ACCURATELY QUANTIFIES THE SUM OF VITAMIN D3, 25-HYDROXY AND VIT D2,25-HYDROXY. { 17-Hydroxyprogesterone, [id number] 12:03PMBayron Mccarty Test NameResultFlagReference 17-Hydroxyprogesterone, Serum33 ng/dL [...] Endocrinol Metab. 1991;73:674-686; J Clin Endocrinol Metab. 1989;69;2529-7622; J Clin Endocrinol Metab. 1994;78:226-270. Pediatr Res 1988;23:525-529. MedLinePlus (accessed 10/25/13). This test was developed and its analytical performance characteristics have [place] It has not been cleared or approved by the U.S. Food and Drug Administration. This assay has been validated pursuant to the CLIA regulations and is used for clinical purposes. DHEA Sulfate, Hrvhm72Fjq7318 12:03PMBibiana Bayron Test NameResultFlagReference DHEA Sulfate, Rlwgv460 ug/dL65 - 395 MATURITY-BASED REFERENCE RANGES: PUBERTAL [...] laboratory for further information. Testosterone Free + Chbmh57Pqy5792 12:03PMBayron Mccarty Test NameResultFlagReference Testosterone, Total63 ng/dLH2-45 For additional information, please refer to http://education.MatchLend/faq/ TotalTestosteroneLCMSMSF AQ165 (This link is being provided for informational/ educational purposes only.) This test was developed and its analytical performance characteristics have been determined by [facility] [place], [place]. It has not been cleared or approved by the U.S. Food and Drug Administration. This assay has been validated pursuant to the CLIA regulations and is used for clinical purposes. Testosterone, Free Serum8.8 pg/mLH0.1-6.4 This test was developed and its analytical performance characteristics have been determined by [facility] [place], [place]. It has not been cleared or approved by the U.S. Food and Drug Administration. This assay has been validated pursuant to the CLIA regulations and is used for clinical purposes. Hemoglobin [id number] 12:03PMBayron Mccarty Test NameResultFlagReference Hemoglobin A1C, Level5.5 % Diagnosis of Diabetes-Adults Non-Diabetic: < or = 5.6% Increased risk for developing diabetes: 5.7-6.4% Diagnostic of diabetes: > or = 6.5% . Monitoring of Diabetes Age (y) Therapeutic Goal (%) Adults: >18 <7.0 Pediatrics: 13-18 <7.5 7-12 <8.0 0- 6 7.5-8.5 [place] [employer]. Diabetes Care 33(S1), May 2009. Estimated Average Gtzztmj954 MG/DL GC + Chlamydia By Amplified [id number] 12:03PMBayron Mccarty Test NameResultFlagReference N.GONORRHEA,AMPLIFIEDNEG ATIVENegative SOURCE: Urine Chlamydia Trach, AmplifiedNEGATIVENegativ e Hepatitis B Surface [id number] 12:03PMBayron Mccarty Test NameResultFlagReference Hep.B Surface AgNONREACTIVESee Below Reference Range: NONREACTIVE Biotin interference may cause falsely decreased results. Patients taking a Biotin dose of up to 5 mg/day should refrain from taking Biotin for 24 hours before sample collection. Providers may contact their local laboratory for further information. Hepatitis C Antibody [id number] 12:03PMBayron Mccarty Test NameResultFlagReference Hepatitis C-AntibodyNONREACTIVESee Below Reference Range: NONREACTIVE Results from patients taking biotin supplements or receiving high-dose biotin therapy should be interpreted with caution due to possible interference with this test. Providers may contact their local laboratory for further information. HIV 1/2 ANTIGEN/ANTIBODY SCREEN WITH REFLEX TO [id number] 12:03PMBayron Mccarty NameResultFlagReference HIV 1/2 AG/AB SCREENNONREACTIVESee Below Reference Range: NONREACTIVE HIV Ag/Ab screen is performed using the Siemens [employer] HIV Ag/Ab Combo assay which detects the presence of HIV p24 antigen as well as antibodies to HIV-1 (Group M and O) and HIV-2. SYPHILIS SCREENING WITH [id number] 12:03Bayron Silva Test NameResultFlagReference SYPHILIS TOTAL ANTIBODYNONREACTIVESee Below SOURCE: Reference Range: NONREACTIVE No significant level of Treponema pallidum antibody detected. Repeat testing in 2 to 4 weeks may be considered if early infection or incubating syphilis infection is suspected. Signatures Electronically signed by : Bayron Mccarty MD; Jun 19 2020 10:16AM EST (Author) Normal [employer] CMV IGM ABon 04-20-2020 CMV IGM AB <30.00 Normal [facility] Comment on above: Result Comment: REFE [...] weeks. Performed By: #### C MVM2 #### [facility] [address] [place] [address] CMV IGG AND IGM ABon 020 CMV IGG AB REACTIVE Abnormal NONREACTIVE [facility] Comment on above: Performed By: #### C MV2 #### [facility] [address] [place] [address] PROGESTERONEon 04-16-2020 PROGESTERONE 10.5 ng/mL Normal [facility] Comment on above: Result Comment: REF VALUES MALE <0.3- 1.2 FOLLICULAR PHASE <0.3- 1.4 LUTEAL PHASE 3.3-25.6 MID-LUTEAL PHASE 4.4-28.0 POSTMENOPAUSAL <0.3- 0.7 FEMALES: 1ST TRIMESTER 11.2- 90.0 2ND TRIMESTER 25.6- 89.4 3RD TRIMESTER 48.4-422.5 . Patients receiving DHEA-S supplements may show false elevation of progesterone for results near 1.0 ng/mL. Contact laboratory at [phone] if alternative testing is needed. Performed By: #### P BOBBY #### [facility] [address] [place] [address] HCG,BETA-QUANTITATIVEon HCG,BETA-QUANTITATIVE <2 Normal [facility] Comment on above: Result Comment: Low- [...] HCG measurement is performed using the Shruthi [place] Access Immunoassay which detects intact HCG and free beta HCG subunit. This test is not indicated for use as a tumor marker. HCG testing is performed using a different test methodology at [facility] than other [facility]. Direct result comparison should only be made within the same method. REF VALUES NON FEMALE <5 MALES <5 Performed By: #### H CGQU #### [address] [id number] EMPLOYMENT EVALUATOR/CASE MANAGER - Office Visiton EMPLOYMENT EVALUATOR/CASE MANAGER - Office Visit Chief Complaint An interactive [...] test results. Roby JEWELL. History of Present Ykhlrhn7804/14/2020 9:30AM JALEESA ARRIETA , 30 year is contacted for an (audio-visual, or audio only) Telehealth visit. Today's visit was provided through telemedicine conferencing: Using Bi[employer] platform. Consent: The concept of telemedicine? has [...] 25 MCG (1000 UT) Oral Tablet; Therapy: [id number] to Recorded Dispense: 0 Days ; #: Sufficient Tablet; Refill: 0; KEVIN = N; Record; Last Updated By: Breezy Jasso; 2020 1:15:24 PM Vitals Vital Signs Recorded: [id number] 09:08AM Height5 ft 6 in Fgeqev624 lb BMI Wengbgzrwk76.81 BSA Calculated2.34 EKQ23Zll7415 Gravida1 Para0 Pain Scale0 Physical Exam This is a telehealth appointment Results/Data Anti Mullerian Dtobwya92Ggu3140 12:03PMBayron Mccarty Test NameResultFlagReference Anti Mullerian Hormone6.36 ng/mL For assays employing antibodies, the possibility exists for interference by heterophile antibodies in the samples.1 1.Kricka L. Interferences in Immunoassays - still a threat. Clin. Chem. 2000; 46: 5176-0222. This test was developed and its performance characteristics determined by [employer]. It has not been cleared or approved by the Food and Drug Administration. Reference Range: Females 26 - 30y: 1.03 - 11.10 Median 4.20 AMH concentrations of >= 1.06 ng/mL is correlated with a better response to ovarian stimulation, produced more retrievable oocytes and higher odds of live according to Gleicher et al. Fertility and Sterility. 2010: 94:7695-1233. The current AMH test method correlates with [...] exclude an AMH-secreting ovarian tumor. Anti Mullerian Sdnuqrh56Zou4003 12:03PMBayron Mccarty Test NameResultFlagReference Anti Mullerian Hormone6.36 ng/mL For assays employing antibodies, the possibility exists for interference by heterophile antibodies in the samples.1 1.Oswald Crews. Interferences in Immunoassays - still a threat. Clin. Chem. 2000; 46: 8924-5026. This test was developed and its performance characteristics determined by [employer]. It has not been cleared or approved by the Food and Drug Administration. Reference Range: Females 26 - 30y: 1.03 - 11.10 Median 4.20 AMH concentrations of >= 1.06 ng/mL is correlated with a better response to ovarian stimulation, produced more retrievable oocytes and higher odds of live according to Gleicher et al. Fertility and Sterility. 2010: 94:8892-1431. The current AMH test method correlates with [...] exclude an AMH-secreting ovarian tumor. Rubella IgG Jawxsldv57Qai9613 12:03PMBayron Mccarty Test NameResultFlagReference Rubella IgG AntibodyPOSITIVE [...] TSH WITH REFLEX TO FREE T4 IF [id number] 12:03PMBayron Mccarty Test NameResultFlagReference Thyroid Stimulating Hormone, Serum2.17 mIU/LSee Below Reference Range: 0.44 - 3.98 TSH testing is performed using different testing methodology at [facility] than at other [facility]. Direct result comparisons should only be made within the same method. Varicella Zoster IgG Dlbpfunz08Guv7017 12:03PMBayron Mccarty Test NameResultFlagReference Varicella Zoster IgG [...] altered results in serological assays. Vitamin D 25-Beyadvl19Bxb5845 12:03PMBayron Mccarty Test NameResultFlagReference Vitamin D 25-Hydroxy, Level17 ng/mLA . DEFICIENCY: < 20 NG/ML INSUFFICIENCY: 20-29 NG/ML SUFFICIENCY: 30-100 NG/ML THIS ASSAY ACCURATELY QUANTIFIES THE SUM OF VITAMIN D3, 25-HYDROXY AND VIT D2,25-HYDROXY. { 17-Hydroxyprogesterone, Izjfc44Gvz1289 12:03PMBayron Mccarty Test NameResultFlagReference 17-Hydroxyprogesterone, Serum33 ng/dL [...] Endocrinol Metab. 1991;73:674-686; J Clin Endocrinol Metab. 1989;69;6663-8207; J Clin Endocrinol Metab. 1994;78:226-270. Pediatr Res 1988;23:525-529. MedLinePlus (accessed 10/25/13). This test was developed and its analytical performance characteristics have been determined by [employer] It has not been cleared or approved by the U.S. Food and Drug Administration. This assay has been validated pursuant to the CLIA regulations and is used for clinical purposes. DHEA Sulfate, Fanwr76Opt9061 12:AdrianoBayron Mccarty Test NameResultFlagReference DHEA Sulfate, Lllpt509 ug/dL65 - 395 MATURITY-BASED REFERENCE RANGES: PUBERTAL [...] laboratory for further information. Testosterone Free + Pyyyc64Pbt3758 12:03PMBayron Mccarty Test NameResultFlagReference Testosterone, Total63 ng/dLH2-45 For additional information, please refer to http://education.MatchLend/faq/ TotalTestosteroneLCMSMSF AQ165 (This link is being provided for informational/ educational purposes only.) This test was developed and its analytical performance characteristics have been determined by [place]. It has not been cleared or approved by the U.S. Food and Drug Administration. This assay has been validated pursuant to the CLIA regulations and is used for clinical purposes. Testosterone, Free Serum8.8 pg/mLH0.1-6.4 This test was developed and its analytical performance characteristics have been determined by [place] It has not been cleared or approved by the U.S. Food and Drug Administration. This assay has been validated pursuant to the CLIA regulations and is used for clinical purposes. Hemoglobin [id number] 12:03PMBayron Mccarty Test NameResultFlagReference Hemoglobin A1C, Level5.5 % Diagnosis of Diabetes-Adults Non-Diabetic: < or = 5.6% Increased risk for developing diabetes: 5.7-6.4% Diagnostic of diabetes: > or = 6.5% . Monitoring of Diabetes Age (y) Therapeutic Goal (%) Adults: >18 <7.0 Pediatrics: 13-18 <7.5 7-12 <8.0 0- 6 7.5-8.5 [place] [employer]. Diabetes Care 33(S1), May 2009. Estimated Average Zucxueq764 MG/DL GC + Chlamydia By Amplified [id number] 12:03PMBayron Mccarty Test NameResultFlagReference N.GONORRHEA,AMPLIFIEDNEG ATIVENegative SOURCE: Urine Chlamydia Trach, AmplifiedNEGATIVENegativ e Hepatitis B Surface Ywudaqt49Mzv4348 12:03PMBayron Mccarty Test NameResultFlagReference Hep.B Surface AgNONREACTIVESee Below Reference Range: NONREACTIVE Biotin interference may cause falsely decreased results. Patients taking a Biotin dose of up to 5 mg/day should refrain from taking Biotin for 24 hours before sample collection. Providers may contact their local laboratory for further information. Hepatitis C Antibody [id number] 12:03PMBayron Mccarty Test NameResultFlagReference Hepatitis C-AntibodyNONREACTIVESee Below Reference Range: NONREACTIVE Results from patients taking biotin supplements or receiving high-dose biotin therapy should be interpreted with caution due to possible interference with this test. Providers may contact their local laboratory for further information. HIV 1/2 ANTIGEN/ANTIBODY SCREEN WITH REFLEX TO [id number] 12:03PMBayron Mccarty Test NameResultFlagReference HIV 1/2 AG/AB SCREENNONREACTIVESee Below Reference Range: NONREACTIVE HIV Ag/Ab screen is performed using the Siemens [place] HIV Ag/Ab Combo assay which detects the presence of HIV p24 antigen as well as antibodies to HIV-1 (Group M and O) and HIV-2. SYPHILIS SCREENING WITH [id number] 12:03PMBayron Mccarty Test NameResultFlagReference SYPHILIS TOTAL ANTIBODYNONREACTIVESee Below SOURCE: Reference Range: NONREACTIVE No significant level of Treponema pallidum antibody detected. Repeat testing in 2 to 4 weeks may be considered if early infection or incubating syphilis infection is suspected. Diagnoses/Problems Irregular menses (626.4) (N92.6) Morbid obesity (278.01) (E66.01) Orders HCG, Beta Quantitative; Status:Active; Requested for:19Yey9433; Perform:Lab Services - Lab To Draw (Blood Test); Due:13Jul2020;Ordered; For:Irregular menses; Ordered By:Bayron Mccarty; Progesterone, Serum; Status:Active; Requested for:23Bup2539; Perform:Lab Services - Lab To Draw (Blood [...] [facility] [phone] [place] [phone] [place] Appointment Duration:. 25 minutes; greater than half [...] MD [facility] [phone] [place] [phone] [place] 1 Amended By: Bayron Mccarty; Apr 14 2020 4:50 PM ESTSignatures Electronically signed by : Bayron Mccarty MD; Apr 14 2020 4:51PM EST (Author) Normal [employer] EMPLOYMENT EVALUATOR/CASE MANAGER - Procedure Visiton 1 05-28-2019 EMPLOYMENT EVALUATOR/CASE MANAGER - Procedure Visit Chief Complaint pt presents [...] 1 CAPSULE EVERY 12 HOURS DAILY; Therapy: 10Kxx3153 to (Evaluate:42Nmz5014) Requested for: 63Zvg7204; Last Rx:[id number] Ordered Rx By: Bayron Mccarty; Dispense: 5 Days ; #:10 Capsule; Refill: 0;For: Fertility testing; KEVIN = N; Verified Transmission to [place] [address]; Msg to Pharmacy: start medication the night before her procedure; Last Updated By: Elham ChumbakTess; 01/24/2020 12:08:27 PM Vitamin D 25 MCG (1000 UT) Oral Tablet; Therapy: 56Kgi8782 to Recorded Dispense: 0 Days ; #: [...] pt, pt to schedule FUV with dr. Mccatry Signatures Electronically signed by : RADHA Mason; Mar 28 2020 4:10PM EST (Author) [facility] EMPLOYMENT EVALUATOR/CASE MANAGER - Office Visiton 110 EMPLOYMENT EVALUATOR/CASE MANAGER - Office Visit Chief Complaint The patient [...] is considering single parent procreation. Her usual Raw Material Handler with whom she would plan to follow with for care in a future is Dr. Ng in [place]. Active Problems Female infertility (628.9) (N97.9) Fertility [...] 1 CAPSULE EVERY 12 HOURS DAILY; Therapy: 00Jlo8849 to (Evaluate:44Myt2528) Requested for: 17Ksp6381; Last Rx:[id number] Ordered Rx By: Bayron Mccarty; Dispense: 5 Days ; #:10 Capsule; Refill: 0; For: Fertility testing; KEVIN = N; Verified Transmission to [place] [address]; Msg to Pharmacy: start medication the night before her procedure; Last Updated By: Cindi Lizarraga; 01/24/2020 12:08:27 PM Vitamin D 25 MCG (1000 UT) Oral Tablet; Therapy: 28Mgt5633 to Recorded Dispense: 0 Days ; #: Sufficient Tablet; Refill: 0; KEVIN = N; Record; Last Updated By: Breezy Jasso; 2020 1:15:24 PM Vitals Vital Signs Recorded: 13Mar2020 01:08PM Heart Rate96 Bubpgxey951 Jlxtpyifi41 Height5 ft 6 in Ubibjm836 lb BMI Eeklmywsse24.91 BSA Calculated2.39 Tobacco Useb) No Fall Screeninga) No falls within the last year [id number] Gravida1 Para0 Pain Scale0 Diagnoses/Problems Morbid obesity [...] consultation of which greater than 50% was ipfg-og-djag counseling. Weight loss prior to conception is [...] MD; Jun 12 2020 4:50PM EST Normal [employer] ANTI MULLERIAN HORMONEon ANTI MULLERIAN HORMONE 6.36 ng/mL Normal [facility] Comment on above: Result Comment: For assays employing antibodies, the possibility exists for interference by heterophile antibodies in the samples.1 1.Oswald Brunner Interferences in Immunoassays - still a threat. Clin. Chem. 2000; 46: 7598-4684. This test was developed and its performance characteristics determined by [employer]. It has not been cleared or approved by the Food and Drug Administration. Reference Range: Females 26 - 30y: 1.03 - 11.10 Median 4.20 AMH concentrations of >= 1.06 ng/mL is correlated with a better response to ovarian stimulation, produced more retrievable oocytes and higher odds of live according to Michaeler et al. Fertility and Sterility. 2010: 94:2494-1524. The current AMH test method correlates with [...] ovarian tumor. Performed By: #### A #### [employer] [address] [place] [address] [id number] 17-HYDROXYPROGESTERONEon 17-HYDROXYPROGESTERON E 33 ng/dL Normal [facility] Comment on above: Result Comment: Unable to [...] Endocrinol Metab. 1991;73:674-686; J Clin Endocrinol Metab. 1989;69;5460-5274; J Clin Endocrinol Metab. 1994;78:226-270. Pediatr Res 1988;23:525-529. MedLinePlus (accessed 10/25/13). This test was developed and its analytical performance characteristics have been determined by [employer] [place], [place]. It has not been cleared or approved by the U.S. Food and Drug Administration. This assay has been validated pursuant to the CLIA regulations and is used for clinical purposes. Performed By: #### 1 7OHP #### [facility] [address] [place], [place] TESTOST,FREE AND TOTALon TESTOSTERONE TOT.LC/MS/MS 63 ng/dL High 2-45 [facility] Comment on above: Result Comment: For additional information, please refer to http://education.[employer]/faq/ [email or web address] (This link is being provided for informational/ educational purposes only.) This test was developed and its analytical performance characteristics have been determined by [facility] [place]. It has not been cleared or approved by the U.S. Food and Drug Administration. This assay has been validated pursuant to the CLIA regulations and is used for clinical purposes. Performed By: #### G [facility] #### [facility] [address] [place] [address] TESTOSTERONE,FREE 8.8 pg/mL High 0.1-6.4 [facility] Comment on above: Result Comment: This test was developed and its analytical performance characteristics have been determined by [facility] [place]. It has not been cleared or approved by the U.S. Food and Drug Administration. This assay has been validated pursuant to the CLIA regulations and is used for clinical purposes. Performed By: #### G [facility] #### [facility] [address] [place] [address] DHEA SULFATEon 01-25-2020 DHEA SULFATE 214 ug/dL Normal 65 - 395 [facility] Comment on above: Result Comment: MATU RITY-BASED [...] for further information. Performed By: #### G [facility] #### [facility] [address] [place] [address] GC + CHLAMYDIA BY AMPLIFIED DETECTIONon 01-25-2020 CHLAMYDIA TRACH.,AMPLIFIED Negative Normal Negative [facility] Comment on above: Performed By: #### [facility] #### [facility] [address] [place] [address] N.GONORRHEA,AMPLIFIED Negative Normal Negative [facility] Comment on above: Performed By: #### [facility] #### [facility] [address] [place] [address] HEPATITIS B SURFACE AGon HEP.B SURFACE AG NONREACTIVE Normal NONREACTIVE [facility] Comment on above: Result Comment: Biot in interference may cause falsely decreased results. Patients taking a Biotin dose of up to 5 mg/day should refrain from taking Biotin for 24 hours before sample collection. Providers may contact their local laboratory for further information. Performed By: #### [facility] #### [facility] [address] [place] [address] HEPATITIS C ABon 01-25-2020 HEPATITIS C AB NONREACTIVE Normal NONREACTIVE [facility] Comment on above: Result Comment: Resu lts from patients taking biotin supplements or receiving high-dose biotin therapy should be interpreted with caution due to possible interference with this test. Providers may contact their local laboratory for further information. Performed By: #### H [facility] #### [facility] [address] [place] [address] HIV ANTIGEN/ANTIBODY SCREENo n 01-25-2020 HIV AG/AB SCREEN NONREACTIVE Normal NONREACTIVE [facility] Comment on above: Result Comment: HIV Ag/Ab screen is performed using the Siemens [employer] HIV Ag/Ab Combo assay which detects the presence of HIV p24 antigen as well as antibodies to HIV-1 (Group M and O) and HIV-2. Performed By: #### G CCHA #### [facility] [address] [place] [address] RUBELLA IGG ABon 01-25-2020 RUBELLA IGG AB Positive Normal [facility] Comment on above: Result Comment: INTE [...] assays. Performed By: #### R UBIG #### [facility] [address] [place] [address] SYPHILIS SCREENING WITH REFL EXon 01-25-2020 SYPHILIS TOTAL AB NONREACTIVE Normal NONREACTIVE [facility] Comment on above: Result Comment: No s ignificant level of Treponema pallidum antibody detected. Repeat testing in 2 to 4 weeks may be considered if early infection or incubating syphilis infection is suspected. Performed By: #### S YPHR #### [facility] [address] [place] [address] TSH WITH REFLEX TO FREE T4 I F ABNORMALon 01-25-2020 TSH Qn 2.17 m[IU]/L Normal 0.44 - 3.98 [facility] Comment on above: Result Comment: TSH testing is performed using different testing methodology at [facility] than at other [facility]. Direct result comparisons should only be made within the same method. Performed By: #### G CCHA #### [facility] [address] [place], [place] VARICELLA ZOSTER IGG ABon VARICELLA ZOSTER IGG AB Negative Normal NEGATIVE [facility] Comment on above: Result Comment: INTE RPRETATIVE [...] in serological assays. Performed By: #### V [facility] #### [facility] [address] [place] [address] VITAMIN D, 25-HYDROXYon 01-10 VITAMIN D, 25-HYDROXY 17 ng/mL Abnormal [facility] Comment on above: Result Comment: . DEFICIENCY: < 20 NG/ML INSUFFICIENCY: 20-29 NG/ML SUFFICIENCY: 30-100 NG/ML THIS ASSAY ACCURATELY QUANTIFIES THE SUM OF VITAMIN D3, 25-HYDROXY AND VIT D2,25-HYDROXY. { Performed By: #### G [facility] #### [facility] [address] [place] [address] GC + CHLAMYDIA BY AMPLIFIED DETECTIONon 01-24-2020 Lab Specimen Source Urine Normal [facility] Comment on above: Performed By: #### G [facility] #### [facility] [address] [place] [address] HEMOGLOBIN A1Con 01-24-2020 HbA1c (Bld) [Mass fraction] 5.5 % Normal [facility] Comment on above: Result Comment: Diag nosis of Diabetes-Adults Non-Diabetic: < or = 5.6% Increased risk for developing diabetes: 5.7-6.4% Diagnostic of diabetes: > or = 6.5% . Monitoring of Diabetes Age (y) Therapeutic Goal (%) Adults: >18 <7.0 Pediatrics: 13-18 <7.5 7-12 <8.0 0- 6 7.5-8.5 [place] [employer]. Diabetes Care 33(S1), May 2009. Performed By: #### H BA1E #### [facility] [address] [place] [address] HbA1c (Bld) [Mass fraction] 111 MG/DL Normal [facility] Comment on above: Performed By: #### H BA1E #### [facility] [address] [place] [address] EMPLOYMENT EVALUATOR/CASE MANAGER - Office Visiton 01-10 EMPLOYMENT EVALUATOR/CASE MANAGER - Office Visit Chief Complaint 29 year [...] is currently incarcerated, and will be in half-way until 2026. She is interested in pursuing fertility testing today, and pending these results would potentially be interested in single-parent procreation with donor sperm. She is not currently sexually active. She has a history of ectopic in 2011, which was treated with laparoscopic left salpingectomy in [facility]. 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: STDs: Yes, remote history of gonorrhea [...] PM Vitals Vital Signs Recorded: 24Jan2020 11:13AM Grqgkdsaqkf42.7 F Heart Wmkd141 Unzfatxz385 Zghbyvcbg44 Height5 ft 6 in Xlednh360 lb BMI Pfnltewnea04.13 BSA Calculated2.35 Tobacco Useb) No Fall Screeninga) No falls within the last year [id number] Gravida1 Para0 Pain Scale0 Diagnoses/Problems Female infertility (628.9) (N97.9) Fertility testing (V26.21) (Z31.41) Morbid obesity (278.01) (E66.01) Irregular menses (626.4) (N92.6) Screening for STD (sexually transmitted disease) (V74.5) (Z11.3) *Orders Anti Mullerian Hormone; Status:Active; Requested for:89Luf5333; Perform:Lab Services - Lab To Draw (Non-Blood Test); Due:90Qpq8972;Ordered; For:Female infertility, Fertility testing, Irregular menses, Morbid [...] Status: Hold For - Scheduling Requested for: 11Cws7825 Ordered; For: Morbid obesity; Ordered By: Bayron Mccarty Performed: Due: 65Krb8564 17-Hydroxyprogesterone, Serum; Status:Active; Requested for:30Ddr1506; Perform:Lab Services - Lab To Draw (Blood Test); Due:55Pdf1820;Ordered; For:Screening for STD (sexually transmitted disease); Ordered By:Byaron Mccarty; DHEA Sulfate, Serum; Status:Active; Requested for:81Lah5036; Perform:Lab Services - Lab To Draw (Blood Test); Due:09Mso7917;Ordered; For:Screening for STD (sexually transmitted disease); Ordered By:Bayron Mccarty; Hemoglobin A1C; Status:Active; Requested for:32Bjj9169; Perform:Lab Services - Lab To Draw (Blood Test); Due:17Css2057;Ordered; For:Screening for STD (sexually transmitted disease); Ordered By:Bayron Mccarty; Rubella IgG Antibody; Status:Active; Requested for:58Fox6473; Perform:Lab Services - Lab To Draw (Blood Test); Due:67Rea5494;Ordered; For:Screening for STD (sexually transmitted disease); Ordered By:Bayron Mccarty; Testosterone Free + Total; Status:Active; Requested for:45Tna7496; Perform:Lab Services - Lab To Draw (Blood Test); Due:01Bts3014;Ordered; For:Screening for STD (sexually transmitted disease); Ordered By:Bayron Mccarty; TSH WITH REFLEX TO FREE T4 IF ABNORMAL; Status:Active; Requested for:69Lik2214; Perform:Lab Services - Lab To Draw (Blood Test); Due:16Srr7523;Ordered; For:Screening for STD (sexually transmitted disease); Ordered By:Bayron Mccarty; Ultrasound Pelvis Transvaginal; Status:Hold For - Scheduling; Requested for:64Ofa2053; Perform:[facility]; Order Comments:will call with menses to schedule; Due:01Cem0940;Ordered; For:Screening for STD (sexually transmitted disease); Ordered By:Bayron Mccarty; Radiologist to Determine Optimal Study : Y What are the patient's signs and symptoms? : fert testing Varicella Zoster IgG Antibody; Status:Active; Requested for:94Rzc0119; Perform:Lab Services - Lab To Draw (Blood Test); Due:09Spq8615;Ordered; For:Screening for STD (sexually transmitted disease); Ordered By:Bayron Mccarty; Vitamin D 25-Hydroxy; Status:Active; Requested for:54Vlv2974; Perform:Lab Services - Lab To Draw (Blood Test); Due:85Dyy8253;Ordered; For:Screening for STD (sexually transmitted disease); Ordered By:Bayron Mccarty; Xray Hysterosalpingogram; Status:Hold For - Scheduling; Requested for:24Jan2020; Perform:[facility]; Order Comments:will call with menses to schedule. schedule between CD5-12. 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 [address] Performed By: #### V ARZG #### [facility] [address] [place] [address] Performed By: #### R UBIG #### [facility] [address] [place] [address] Vital Signs Date Time Vital Sign Value Performing Clinician Facility 04-06-2024 14:10-0500 Body mass index (BMI) [Ratio] 48.58 kg/m2 Mena CARRILLO Work Phone: [facility] 04-06-2024 14:10-0500 Body weight 136.53 kg Mena CARRILLO Work Phone: [facility] 04-06-2024 14:10-0500 Diastolic blood pressure 80 mm[Hg] Mena Ann PA Work Phone: [facility] 04-06-2024 14:10-0500 Systolic blood pressure 128 mm[Hg] Mena Ann PA Work Phone: [facility] 03-22-2024 14:14-0500 Body mass index (BMI) [Ratio] 48.92 kg/m2 Tacho Shon DO Work Phone: [facility] 03-22-2024 14:14-0500 Body weight 137.49 kg Tacho Shon DO Work Phone: [facility] 03-22-2024 14:14-0500 Diastolic blood pressure 84 mm[Hg] Tacho Shon DO Work Phone: [facility] 03-22-2024 14:14-0500 Systolic blood pressure 126 mm[Hg] Tacho Shon DO Work Phone: [facility] 03-05-2024 23:11-0400 Diastolic blood pressure 78 mm[Hg] [facility] Work Phone: [facility] 03-05-2024 23:11-0400 Heart rate 90 /min [facility] Work Phone: [facility] 03-05-2024 23:11-0400 Respiratory rate 18 /min [facility] Work Phone: [facility] 03-05-2024 23:11-0400 SaO2% (BldA) [Mass fraction] 96 % [facility] Work Phone: [facility] 03-05-2024 23:11-0400 Systolic blood pressure 136 mm[Hg] [facility] Work Phone: [facility] 03-05-2024 19:59-0400 Body temperature 98.1 [degF] [facility] Work Phone: [facility] 03-05-2024 19:58-0400 Body height 167.64 cm [facility] Work Phone: [facility] 03-05-2024 19:58-0400 Body weight 136.55 kg [facility] Work Phone: [facility] 02-26-2024 19:50-0400 Body height 167.64 cm [facility] Work Phone: [facility] 02-26-2024 19:50-0400 Body temperature 97.8 [degF] [facility] Work Phone: [facility] 02-26-2024 19:50-0400 Body weight 136.98 kg [facility] Work Phone: [facility] 02-26-2024 19:50-0400 Diastolic blood pressure 91 mm[Hg] [facility] Work Phone: [facility] 02-26-2024 19:50-0400 Heart rate 103 /min [facility] Work Phone: [facility] 02-26-2024 19:50-0400 Respiratory rate 16 /min [facility] Work Phone: [facility] 02-26-2024 19:50-0400 SaO2% (BldA) [Mass fraction] 96 % [facility] Work Phone: [facility] 02-26-2024 19:50-0400 Systolic blood pressure 144 mm[Hg] [facility] Work Phone: [facility] 02-23-2024 14:01-0400 Body mass index (BMI) [Ratio] 48.76 kg/m2 Mena Garciavania CARRILLO Work Phone: [facility] 02-23-2024 14:01-0400 Body weight 137.04 kg Mena Garciaey PA Work Phone: [facility] 02-23-2024 14:01-0400 Diastolic blood pressure 82 mm[Hg] Mena Garciaey PA Work Phone: [facility] 02-23-2024 14:01-0400 Systolic blood pressure 128 mm[Hg] Mena Ann PA Work Phone: [facility] 10-06-2023 17:42-0400 Body height 167.64 cm [facility] Work Phone: [facility] 10-06-2023 17:42-0400 Body temperature 98.3 [degF] [facility] Work Phone: [facility] 10-06-2023 17:42-0400 Body weight 134 kg [facility] Work Phone: [facility] 10-06-2023 17:42-0400 Diastolic blood pressure 94 mm[Hg] [facility] Work Phone: [facility] 10-06-2023 17:42-0400 Heart rate 98 /min [facility] Work Phone: [facility] 10-06-2023 17:42-0400 Respiratory rate 18 /min [facility] Work Phone: [facility] 10-06-2023 17:42-0400 SaO2% (BldA) [Mass fraction] 100 % [facility] Work Phone: [facility] 10-06-2023 17:42-0400 Systolic blood pressure 142 mm[Hg] [facility] Work Phone: [facility] 09-17-2023 14:22-0400 Body height 167.6 cm Annaromi Rodríguezmakenzie BAÑUELOS [facility] 09-17-2023 14:22-0400 Body mass index (BMI) [Ratio] 47.61 kg/m2 Anna Ortiz SARMAD [facility] 09-17-2023 14:22-0400 Body weight 133.81 kg Anna Rodríguezmakenzie BAÑUELOS [facility] 08-20-2023 13:05-0400 Body height 167.6 cm Tonya Senior 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.[employer] Work Phone: [facility] 08-20-2023 13:05-0400 Body weight 133.81 kg Tonya Parrish 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.[employer] Work Phone: [facility] 08-07-2023 15:230400 Body height 168.91 cm [facility] Work Phone: [facility] 08-07-2023 15:23-0400 Body mass index (BMI) [Ratio] 46.9 kg/m2 [facility] Work Phone: [facility] 08-07-2023 15:23-0400 Body weight 133.89 kg [facility] Work Phone: [facility] 08-07-2023 15:23-0400 Diastolic blood pressure 83 mm[Hg] [facility] Work Phone: [facility] 08-07-2023 15:23-0400 Heart rate 101 /min [facility] Work Phone: [facility] 08-07-2023 15:23-0400 Respiratory rate 18 /min [facility] Work Phone: [facility] 08-07-2023 15:23-0400 SaO2% (BldA) [Mass fraction] 98 % [facility] Work Phone: [facility] 08-07-2023 15:23-0400 Systolic blood pressure 120 mm[Hg] Services [facility] Work Phone: [facility] 06-13-2023 11:00-0500 Body height 168.28 cm Nicholas Michaels Other [facility] 06-13-2023 11:00-0500 Body mass index (BMI) [Ratio] 48.53 kg/m2 Nicholas Michaels Other [employer] Other 06-13-2023 11:00-0500 Body weight 137.44 kg Nicholas Michaels Other [employer] Other 06-13-2023 11:00-0500 Body weight 137.43 kg [facility] [employer] Phone: [facility] 06-13-2023 11:00-0500 Diastolic blood pressure 82 mm[Hg] Nicholas Michaels Other [facility] 06-13-2023 11:00-0500 Respiratory rate 18 /min Nicholas Michaels Other [employer] Other 06-13-2023 11:00-0500 SaO2% (BldA) [Mass fraction] 97 % Nicholas Michaels Other [employer] Other 06-13-2023 11:00-0500 Systolic blood pressure 120 mm[Hg] Nicholas Michaels Other [facility] 01-08-2023 10:45-0400 Body height 168.28 cm Nicholas Michaels Other [employer] Other 01-08-2023 10:45-0400 Body mass index (BMI) [Ratio] 52.89 kg/m2 Nicholas Michaels Other [employer] Other 01-08-2023 10:45-0400 Body weight 149.78 kg Nicholas Michaels Other [employer] Other 01-08-2023 10:45-0400 Diastolic blood pressure 81 mm[Hg] Nicholas Michaels Other [employer] Other 01-08-2023 10:45-0400 Respiratory rate 18 /min Nicholas Michaels Other [employer] Other 01-08-2023 10:45-0400 SaO2% (BldA) [Mass fraction] 97 % Nicholas Michaels Other [employer] Other 01-08-2023 10:45-0400 Systolic blood pressure 122 mm[Hg] Nicholas Michaels Other [employer] Other 06-18-2022 16:57-0500 Body height 167.64 cm [facility] Work Phone: [facility] 06-18-2022 16:57-0500 Body weight 157 kg [facility] Work Phone: [facility] 06-18-2022 16:56-0500 Body temperature 98.3 [degF] [facility] Work Phone: [facility] 06-18-2022 16:56-0500 Diastolic blood pressure 67 mm[Hg] [facility] Work Phone: [facility] 06-18-2022 16:56-0500 Heart rate 95 /min [facility] Work Phone: [facility] 06-18-2022 16:56-0500 Respiratory rate 20 /min [facility] Work Phone: [facility] 06-18-2022 16:56-0500 SaO2% (BldA) [Mass fraction] 97 % [facility] Work Phone: [facility] 06-18-2022 16:56-0500 Systolic blood pressure 158 mm[Hg] Services [facility] Work Phone: [facility] 12-02-2021 20:26-0400 Body height 167.64 cm Services [facility] Work Phone: [facility] 12-02-2021 20:26-0400 Body temperature 98.2 [degF] Services Family [facility] Work Phone: [facility] 12-02-2021 20:26-0400 Body weight 144.24 kg Services [facility] Work Phone: [facility] 12-02-2021 20:26-0400 Diastolic blood pressure 89 mm[Hg] Services Family [facility] Work Phone: [facility] 12-02-2021 20:26-0400 Heart rate 104 /min Services [facility] Work Phone: [facility] 12-02-2021 20:26-0400 Respiratory rate 20 /min Services [facility] Work Phone: [facility] 12-02-2021 20:26-0400 SaO2% (BldA) [Mass fraction] 96 % Services [facility] Work Phone: [facility] 12-02-2021 20:26-0400 Systolic blood pressure 156 mm[Hg] Services [facility] Work Phone: [facility] 06-19-2020 11:10-0500 BMI (Body Mass Index) 46.65 kg/m2 Bayron Bibiana QI-XJUMG-Dfttoy 310 IVF Work Phone: 06-19-2020 11:10-0500 Body weight 131.09 kg Bayron Bibiana IT-DWTAY-Eywwdx 310 IVF Work Phone: 06-19-2020 11:10-0500 BSA (Body Surface Area) 2.34 m2 Bayron Bibiana BQ-IDKCK-Giwlyg 310 IVF Work Phone: 06-19-2020 11:10-0500 Height 167.64 cm Bayron Bibiana ZO-FUIDS-Impkty 310 IVF Work Phone: 06-19-2020 11:10-0500 1 1 Bayron Bibiana DT-TODRD-Xonkpe 310 IVF Work Phone: Comment on above: 06-19-2020 11:10-0500 0 1 Bayron Mccarty FR-ZBKTJ-Oxmquv 310 IVF Work Phone: Comment on above: Para Pain Scale Encounters Encounter Date Encounter Type Care Provider Facility Start: 04-06-2024 End: 04-06-2024 Bamboo flowsheet Mena CARRILLO Work Phone: [facility] Start: 04-06-2024 End: 04-06-2024 Bamboo flowsheet Mena CARRILLO Work Phone: [facility] Start: 04-06-2024 End: 04-06-2024 Office outpatient visit 15 minutes Mena CARRILLO Work Phone: [facility] Comment on above: Third trimester preg rosette; 31 weeks gestation of ; H/O premature delivery Start: 04-06-2024 End: 04-06-2024 ambulatory MENA ANN Not Available Start: 03-30-2024 End: 03-30-2024 ambulatory TACHO R SHON [facility] Start: 03-22-2024 End: 03-22-2024 Bamboo flowsheet Tacho Shon DO Work Phone: [facility] Start: 03-22-2024 End: 03-22-2024 Bamboo flowsheet Tacho Shon DO Work Phone: [facility] Start: 03-22-2024 End: 03-22-2024 Office outpatient visit 15 minutes Tacho Shon DO Work Phone: [facility] Comment on above: Third trimester preg rosette; 29 weeks gestation of Start: 03-22-2024 End: 03-22-2024 ambulatory TACHO SHON Not Available Start: 03-19-2024 End: 03-19-2024 Clinisync Result Encounter Mena CARRILLO Work Phone: [facility] External Department Unsolicited Start: 03-19-2024 End: 03-19-2024 Clinisync Result Encounter Mena CARRILLO Work Phone: [facility] External Department Unsolicited Start: 03-05-2024 End: 03-05-2024 Emergency department patient visit Services [facility] Work Phone: [facility] Work Phone: Start: 03-01-2024 End: 03-01-2024 Orders Only Veda Hayes RN [facility]- [facility] at [facility] Comment on above: Encounter for follow -up ultrasound of anatomy (Primary Dx); History of pre-eclampsia in prior , currently ; History of delivery, currently ; Obesity affecting in second trimester, unspecified obesity type Start: 02-26-2024 End: 02-26-2024 Emergency department patient visit [facility] Work Phone: [facility] Work Phone: Start: 02-23-2024 End: 02-23-2024 Bamboo flowsheet Mena CARRILLO Work Phone: [facility] Start: 02-23-2024 End: 02-23-2024 Bamboo [...] Not Available Start: 02-17-2024 End: [facility] Start: 01-20-2024 End: 01-20-2024 ambulatory TACHO SHON Not Available Start: 01-19-2024 End: 01-19-[facility] Start: 12-23-2023 End: 12-23-2023 ambulatory MENA ANN Not Available Start: 11-25-2023 End: 11-25-2023 ambulatory TACHO SHON Not Available Start: 10-30-2023 End: 10-30-2023 ambulatory TACHO SHON Not Available Start: 10-09-2023 End: 10-09-2023 ambulatory LATONIA GREENE Facility:[facility] Start: 10-06-2023 End: 10-06-2023 Emergency department patient visit Services [facility] Work Phone: [facility] Work Phone: Start: 09-17-2023 End: 09-17-2023 ambulatory ANNA ORTIZ Facility:[facility] Start: 09-17-2023 End: 09-17-2023 Nutrition therapy Anna Ortiz RD Nutrition Therapy Comment on above: Obesity, Class III, BMI 40-49.9 (morbid obesity) (HCC) (Primary Dx); Dietary counseling Start: 09-17-2023 End: 09-17-2023 Telemedicine consultation with patient Anna Ortiz RD Nutrition Therapy Start: 09-15-2023 Admission to same da surgery center Tonya Senior APRN.[employer] Work Phone: General Surgery Comment on above: Results Start: 09-15-2023 E-mail encounter fro m caregiver Tonya Senior APRN.[employer] Work Phone: General Surgery Start: 09-11-2023 Telephone encounter Tonya Senior APRN.[employer] Work Phone: General Surgery Comment on above: Results Start: 09-08-2023 End: 09-08-2023 ambulatory TONYA SENIOR Facility:[facility] Start: 09-05-2023 End: 09-05-2023 ambulatory TONYA SENIOR Facility:[facility] Start: 09-01-2023 End: 09-02-2023 ambulatory LATONIA GREENE Facility:[facility] Start: 09-01-2023 End: 09-01-2023 Admission to same day surgery center Latonia Greene PhD Work Phone: General Surgery BMI PSYL Comment on above: NO SHOW (Primary Dx) Start: 09-01-2023 End: 09-01-2023 Telemedicine consultation with patient Latonia Willis Jerel PhD Work Phone: General Surgery BMI PSYL Start: 08-20-2023 Admission to [facility] center Tonya Senior APRN.[employer] Work Phone: General Surgery Comment on above: Welcome to Bariatric Surgery Start: 08-20-2023 E-mail encounter fro m caregiver Tonya Senior APRN[employer] Work Phone: [place] [address] Start: 08-20-2023 End: 08-20-2023 ambulatory Tonya Senior APRN[employer] Work Phone: General Surgery Comment on above: Body mass index (BMI ) of 50-59.9 in adult (HCC) (Primary Dx); Angel's thyroiditis; High blood cholesterol Start: 08-20-2023 End: 08-20-2023 Telemedicine consultation with patient Tonya Ron Senior APRN.[employer] Work Phone: [facility] Start: 08-07-2023 End: 08-07-2023 ambulatory Services Family [facility] Work Phone: [facility] Work Phone: Start: 08-07-2023 End: 08-07-2023 Patient encounter procedure Services [facility] Work Phone: [facility] Work Phone: Start: 06-13-2023 Follow-up encounter Nicholas Michaels [facility] Start: 06-13-2023 Registered Recurring Services Family Health Work Phone: [facility] Work Phone: Start: 06-13-2023 End: 06-13-2023 ambulatory Nicholas Michaels [employer] Other Start: 06-13-2023 End: 06-13-2023 Patient encounter procedure Services Family [facility] Work Phone: [facility]- Start: 01-08-2023 End: 01-08-2023 ambulatory Nicholas Michaels Other [facility] [employer] Other Start: 01-08-2023 Nutrition therapy Nicholas Michaels [facility] Start: 06-18-2022 End: 06-18-2022 Emergency department patient visit Services [facility] Work Phone: [facility] Work Phone: Start: 06-03-2022 End: 06-03-[address] TACHO MENENDEZ Facility:[facility] Start: 12-02-2021 End: 12-02-2021 Emergency department patient visit Services [facility] Work Phone: [facility] Start: 07-08-2020 Patient encounter procedure Bayron Mccarty EM-QMVYT-Yikqyy 310 IVF Work Phone: Start: 07-05-2020 Patient encounter procedure Bayron Mccarty PS-MUMDA-Jrcnee 310 IVF Work Phone: Start: 06-19-2020 Patient encounter procedure Bayron Mccarty QL-VEOSH-Rmjqfe 310 IVF Work Phone: Start: 04-14-2020 Patient encounter procedure Baryon Mccarty JI-CKYFH-Arxjgg 310 IVF Work Phone: Start: 03-28-2020 Patient encounter procedure Bayron Mccarty GI-TIUXR-Exvbon 310 IVF Work Phone: Start: 2020 Patient encounter procedure Bayron Mccarty WH-FZKUM-Gksaql 310 IVF Work Phone: Start: 01-24-2020 Patient encounter procedure Bayron Mccarty RR-OLGZZ-Jgkddg 310 IVF Work Phone: Start: 08-01-2017 End: 08-02-2017 Ambulatory Agustin Ryanasiyasriram Facility:[id number] Start: 07-14-2017 End: 07-15-2017 Ambulatory Agustin Carrasquillosriram Facility:[id number] Procedures Date Procedure Procedure Detail Performing Clinician Start: 04-06-2024 Urnls dip stick/tabl et rgnt non-auto w/o micrscp Mena CARRILLO Work Phone: Start: 03-22-2024 Urnls dip stick/tabl et rgnt non-auto w/o micrscp Tacho Menendez DO Work Phone: Start: 03-19-2024 ALL CBC WITH AUTO DIFF Mena CARRILLO Work Phone: Start: 03-05-2024 Plain chest X-ray Servi malina [facility] Work Phone: Start: 03-05-2024 Respiratory Panel (PCR) [facility] Work Phone: Start: 03-05-2024 Streptococcus pyogen es antigen assay [facility] Work Phone: Start: 02-26-2024 Streptococcus pyogen es antigen assay [facility] Work Phone: Start: 02-23-2024 Urnls dip stick/tabl et rgnt non-auto w/o micrscp Mena CARRILLO Work Phone: Start: 12-23-2023 Microscopic observat ion [Identifier] in Cervix by Cyto stain Mena CARRILLO Work Phone: Start: 07-06-2020 Antibody screen Comment on above: Performed By: #### T +S #### [facility] [address] [place] [address] Start: 07-05-2020 IO Ultrasound, limit ed pelvic, follicle monitoring Bayron Mccarty Start: 06-26-2020 IO Ultrasound, limit ed pelvic, follicle monitoring Bayron Mccarty Start: 05-10-2020 Assay of progesterone J sharath Mccarty Adenoid excision Bayron wallace Cholecystectomy Bayron Chen ey SARS Antigen (LFIA) Services [facility] Work Phone: Plan of Treatment Date Care Activity Detail Author Start: 12-22-2028 Screening for malign ant neoplasm of cervix [facility] Start: 12-22-2026 Screening for malign ant neoplasm of cervix Pap Smear [facility] Start: 03-01-2025 End: 03-01-2025 US MFM with or without consult US MFM with or without consult Imaging Routine Encounter for follow-up ultrasound of anatomy History of pre-eclampsia in prior , currently History of delivery, currently Obesity affecting in second trimester, unspecified obesity type Expected: 03/01/2025 (Approximate), Expires: 03/01/2025 [facility] Work Phone: Comment on above: Expected: 03/01/2025 (Approximate), Expires: 03/01/2025 Start: 01-18-2025 Adult BMI Screening Adult BMI Screen ing [facility] Start: 01-18-2025 Tobacco Screening Tobacco Screening [facility] Start: 04-22-2024 End: 04-22-2024 Patient encounter procedure 04/22/2024 9:30 AM EST Routine [facility] [address] [place] [address] [place] [address] Tacho Menendez DO [address] [place] [address] [facility] Start: 04-06-2024 End: 04-06-2025 US biophysical profile w non stress test US biophysical profile w non stress test Imaging Routine H/O premature delivery Expected: 04/06/2024 (Approximate), Expires: 04/06/2025 [facility] Work Phone: Comment on above: Expected: 04/06/2024 (Approximate), Expires: 04/06/2025 Start: 04-06-2024 End: 04-06-2024 Patient encounter procedure 04/06/2024 1:30 PM EST Routine [facility] [address] [place] [address] Mean Ann PA [address] [place] [address] [facility] Start: 03-30-2024 End: 03-30-2024 Patient encounter procedure 03/30/2024 2:45 PM EST Appointment [facility] [address] [place] [phone] [facility] Start: 03-22-2024 End: 03-22-2024 Patient encounter procedure 03/22/2024 1:50 PM EST Routine [facility] [address] [place] [phone] Tacho Menendez, DO [address] [place] [address] [facility] Start: 03-22-2024 End: 03-22-2024 Professional / ancillary services management 03/22/2024 1:00 PM EST Ancillary Procedure [facility] [address] [place] [phone] [facility] Start: 03-16-2024 End: 03-16-2024 Patient encounter procedure 03/16/2024 1:30 PM EST Routine [facility] [address] [place] [phone] Tacho Menendez, DO [address] [place] [address] [facility] Start: 02-23-2024 End: 02-22-2025 CBC panel - Blood by Automated count CBC Lab Routine Diabetes mellitus screening Expected: 02/23/2024 (Approximate), Expires: 02/22/2025 [facility] Work Phone: Comment on above: Expected: 02/23/2024 (Approximate), Expires: 02/22/2025 Start: 02-23-2024 End: 02-22-2025 Measurement of glucose 1 hour after glucose challenge for glucose tolerance test Glucose tolerance, 1 hour Lab Routine Diabetes mellitus screening Expected: 02/23/2024 (Approximate), Expires: 02/22/2025 [facility] Comment on above: Expected: 02/23/2024 (Approximate), Expires: 02/22/2025 Start: 02-23-2024 End: 02-22-2025 US for US OB SCAN FOR GROWTH Imaging Routine size inconsistent with dates H/O premature delivery Expected: 02/23/2024 (Approximate), Expires: 02/22/2025 [facility] Comment on above: Expected: 02/23/2024 (Approximate), Expires: 02/22/2025 Start: 02-23-2024 End: 02-23-2024 Patient encounter procedure 02/23/2024 1:40 PM EDT Routine [facility] [address] [place] [address] Mena Ann PA [address] [place], [facility] Arrived [facility] Comment on above: Arrived Start: 01-11-2024 COVID-19 Vaccine () COVID-19 Vaccine () [facility] Start: 01-11-2024 Influenza vaccination [facility] Start: 09-17-2023 End: 09-17-2023 Nutrition therapy 09/17/2023 2:30 PM EDT [facility] Nutrition Therapy [address] [address] Anna Ortiz, [address]ARM[address] [place] [address] Red/[place]/0 Diet/[place] [facility] Comment on above: Red/[place]/0 Diet/ [place] Start: 09-12-2023 End: 09-12-2023 Admission to same day surgery center 09/12/2023 3:30 PM EDT [facility] General Surgery [address] [place] [address] Joo Bradley MD [address] [place], [place] [id number] Red/[place]/0 Diet/[place] [facility] Comment on above: Red/Kirk/0 Diet/Anth em Start: 09-05-2023 End: 09-05-2023 ambulatory 09/05/2023 11:45 AM EDT Results Only [facility] [address] [place] [address] [place] [address] [facility] Start: 08-20-2023 End: 11-19-2023 25-hydroxyvitamin D3 [Mass/volume] in Serum or Plasma VITAMIN D 25 HYDROXY Lab Routine Body mass index (BMI) of 50-59.9 in adult (HCC) Expected: 08/20/2023, Expires: 11/19/2023 [facility] Work Phone: Comment on above: Expected: 08/20/2023 , Expires: 11/19/2023 Start: 08-20-2023 End: 11-19-2023 CBC W Auto Differential panel - Blood COMPLETE BLOOD COUNT AND DIFFERENTIAL Lab Routine Body mass index (BMI) of 50-59.9 in adult ([facility]) Expected: 08/20/2023, Expires: 11/19/2023 [facility] Work Phone: Comment on above: Expected: 08/20/2023 , Expires: 11/19/2023 Start: 08-20-2023 End: 11-19-2023 Cobalamin (Vitamin B12) [Mass/volume] in Serum or Plasma VITAMIN B12 Lab Routine Body mass index (BMI) of 50-59.9 in adult (HCC) Expected: 08/20/2023, Expires: 11/19/2023 [facility] Work Phone: Comment on above: Expected: 08/20/2023 , Expires: 11/19/2023 Start: 08-20-2023 End: 11-19-2023 Comprehensive metabolic 2000 panel - Serum or Plasma COMPREHENSIVE METABOLIC PANEL Lab Routine High blood cholesterol Body mass index (BMI) of 50-59.9 in adult (HCC) Expected: 08/20/2023, Expires: 11/19/2023 [facility] Work Phone: Comment on above: Expected: 08/20/2023 , Expires: 11/19/2023 Start: 08-20-2023 End: 11-19-2023 Ferritin [Mass/volume] in Serum or Plasma FERRITIN Lab Routine Body mass index (BMI) of 50-59.9 in adult (HCC) Expected: 08/20/2023, Expires: 11/19/2023 [facility] Work Phone: Comment on above: Expected: 08/20/2023 , Expires: 11/19/2023 Start: 08-20-2023 End: 11-19-2023 Folate [Mass/volume] in Serum or Plasma FOLATE, SERUM Lab Routine Body mass index (BMI) of 50-59.9 in adult ([facility]) Expected: 08/20/2023, Expires: 11/19/2023 [facility] Work Phone: Comment on above: Expected: 08/20/2023 , Expires: 11/19/2023 Start: 08-20-2023 End: 11-19-2023 Helicobacter pylori IgG Ab [Presence] in Serum or Plasma by Immunoassay H PYLORI IGG AB Lab Routine Body mass index (BMI) of 50-59.9 in adult ([facility]) Expected: 08/20/2023, Expires: 11/19/2023 [facility] Work Phone: Comment on above: Expected: 08/20/2023 , Expires: 11/19/2023 Start: 08-20-2023 End: 11-19-2023 Hemoglobin A1c in Blood HEMOGLOBIN A1C Lab Routine Body mass index (BMI) of 50-59.9 in adult ([facility]) Expected: 08/20/2023, Expires: 11/19/2023 [facility] Work Phone: Comment on above: Expected: 08/20/2023 , Expires: 11/19/2023 Start: 08-20-2023 End: 11-19-2023 Iron and Iron binding capacity panel - Serum or Plasma IRON AND TIBC Lab Routine Body mass index (BMI) of 50-59.9 in adult ([facility]) Expected: 08/20/2023, Expires: 11/19/2023 [facility] Work Phone: Comment on above: Expected: 08/20/2023 , Expires: 11/19/2023 Start: 08-20-2023 End: 11-19-2023 Lipid 1996 panel - Serum or Plasma LIPID PANEL BASIC Lab Routine High blood cholesterol Body mass index (BMI) of 50-59.9 in adult ([facility]) Expected: 08/20/2023, Expires: 11/19/2023 [facility] Work Phone: Comment on above: Expected: 08/20/2023 , Expires: 11/19/2023 Start: 08-20-2023 End: 11-19-2023 Natriuretic peptide.B prohormone N-Terminal [Mass/volume] in Serum or Plasma NT PRO BNP Lab Routine Body mass index (BMI) of 50-59.9 in adult ([facility]) Expected: 08/20/2023, Expires: 11/19/2023 [facility] Work Phone: Comment on above: Expected: 08/20/2023 , Expires: 11/19/2023 Start: 08-20-2023 End: 11-19-2023 NICOTINE & METAB, UR NICOTINE & METAB, UR Lab Routine Body mass index (BMI) of 50-59.9 in adult ([facility]) Expected: 08/20/2023, Expires: 11/19/2023 [facility] Work Phone: Comment on above: Expected: 08/20/2023 , Expires: 11/19/2023 Start: 08-20-2023 End: 11-19-2023 Thyrotropin [Units/volume] in Serum or Plasma THYROID STIMULATING HORMONE Lab Routine Angel's thyroiditis Body mass index (BMI) of 50-59.9 in adult ([facility]) Expected: 08/20/2023, Expires: 11/19/2023 [facility] Work Phone: Comment on above: Expected: 08/20/2023 , Expires: 11/19/2023 Start: 08-20-2023 End: 11-19-2023 TOXICOLOGY SCREEN, ROUTINE URINE TOXICOLOGY SCREEN, ROUTINE URINE Lab Routine Body mass index (BMI) of 50-59.9 in adult ([facility]) Expected: 08/20/2023, Expires: 11/19/2023 [facility] Work Phone: Comment on above: Expected: 08/20/2023 , Expires: 11/19/2023 Start: 08-20-2023 End: 11-19-2023 VITAMIN B1 (THIAMINE), WHOLE BLOOD VITAMIN B1 (THIAMINE), WHOLE BLOOD Lab Routine Body mass index (BMI) of 50-59.9 in adult (HCC) Expected: 08/20/2023, Expires: 11/19/2023 [facility] Work Phone: Comment on above: Expected: 08/20/2023 , Expires: 11/19/2023 Start: 05-12-2023 Behavioral Health Screening Behavioral Health Screening [facility] Start: 01-10-2023 Covid-19 Vaccine () Covid-19 Vaccine () [facility] Start: 12-02-2021 Plain chest X-ray XR chest 1V portab le [facility] Start: 12-02-2021 XR Chest Single view [facility] Work Phone: Start: 2021 Screening for malign ant neoplasm of cervix HPV Testing [facility] Start: 2012 Screening for malign ant neoplasm of cervix Pap Testing [facility] Start: 2010 Hepatitis B Vaccine (1 of 3 - 19+ 3-dose series) Hepatitis B Vaccine (1 of 3 - 19+ 3-dose series) [facility] Start: 2009 Adult BMI Follow Up Plan Adult BMI Follow Up Plan [facility] Start: 2009 HIV screening HIV Screening [facility] Start: 2003 Depression Screening Depression [facility] Start: 2002 DTaP,Tdap and Td Vaccines (6 - Tdap) DTaP,Tdap and Td Vaccines (6 - Tdap) [facility] Start: 2002 Urine microalbumin profile DTaP,Tdap,Td Vaccine (6 - Tdap) [facility] End: 08-19-2024 ECG COMPLETE ECG COMPLETE ECG Routine Body mass index (BMI) of 50-59.9 in adult (HCC) 1 Occurrences starting 08/20/2023 until 08/19/2024 [facility] Work Phone: Comment on above: 1 Occurrences starti ng 08/20/2023 until 08/19/2024 Patient Education [facility] Work Phone: Patient referral [facility] Work Phone: End: 09-18-2024 US Abdomen RUQ US ABD RIGHT UPPER QUADRANT Radiology Routine Body mass index (BMI) of 50-59.9 in adult ([facility]) 1 Occurrences starting 08/20/2023 until 09/18/2024 [facility] Work Phone: Comment on above: 1 Occurrences starti ng 08/20/2023 until 09/18/2024 End: 09-18-2024 XR Chest PA and Lateral XR CHEST 2V FRONTAL/LAT Radiology Routine Body mass index (BMI) of 50-59.9 in adult (HCC) 1 Occurrences starting 08/20/2023 until 09/18/2024 [facility] Work Phone: Comment on above: 1 Occurrences starti ng 08/20/2023 until 09/18/2024 ZI-AHCWH-Crvitr 310 IVF Work Phone: [facility] NEGATED: Highlighted row has been ruled out! Planned Goals not documented NS-NKSVO-Sgoznc 310 IVF Work Phone: Immunizations Immunization Date Immunization Notes Care Provider [facility] 03-11-2023 influenza virus vacc ine, unspecified formulation Mena CARRILLO Work Phone: [facility] Payers Date Payer Category Payer Self-pay [id number] 2022 Medicaid [id number] 2022 Medicaid [id number] 1991 Unknown [id number] 3 1991 Unknown [id number] [id number] 86 1991 Unknown [id number] 2.16.840.1.583026.3.579.2.12 86 1991 Unknown [id number] [id number] 86 1991 Unknown [id number] 2.16.840.1.304853.3.579.2.12 86 1991 Unknown [id number] 2.16.840.1.487648.3.579.2.12 59 1991 Unknown [id number] 2.16.840.1.995187.3.579.2.12 59 1991 Unknown [id number] 2.16.840.1.695564.3.579.2.12 59 1991 Unknown [id number] 2.16.840.1.143645.3.579.2.12 59 1991 Unknown [id number] 2.16.840.1.495945.3.579.2.12 59 1991 Unknown [id number] 2.16.840.1.180103.3.579.2.12 59 1991 Unknown [id number] 2.16.840.1.947801.3.579.2.12 59 1959 Medicaid [id number] Private Health Insurance [facility] [id number] Unknown [id number] Unknown Regular Insurance [id number] Unknown [employer] [id number] Unknown Regular Auto/Medical [id number] Unknown [id number] [id number] 1 Unknown [id number] 1 Unknown [id number] 1 Unknown [id number] Social History Date Type Detail Facility Start: 12-02-2021 End: 05-17-2023 Tobacco smoking status NHIS Never smoked tobacco (finding) [facility] Start: 1990 Sex Assigned At Female F [facility] Start: 05-17-2023 End: 08-20-2023 Sex Assigned At [facility] Other Start: 05-17-2023 End: 08-20-2023 Tobacco use and exposure Smokeless tobacco non-user [facility] Work Phone: Start: 08-20-2023 End: 02-23-2024 Alcohol intake Current drinker of alcohol (finding) [facility] Start: 05-17-2023 End: 08-20-2023 History of Social function [facility] National Score (1-100), lower number is lower risk 86 [facility] Start: 08-20-2023 Alcohol Comment occ [facility] Start: 1990 Sex Assigned At Not on file [facility] Start: 08-26-2023 Gender identity Identifies as female gender (finding) [facility] Start: 08-26-2023 Sexual orientation Heterosexual (fin ding) [facility] Start: 09-14-2023 [facility] How often to you hav e a [...] Start: 01-19-2024 Alcoholic beverage intake Ex-drinker (finding) [facility] Start: 12-13-2014 Sex Female (finding) [facility] NEGATED: Highlighted row - - UB-[id number]-Gmdvfu 310 [facility] Work Phone: Functional Status Date Assessment Result Facility NEGATED: Highlighted row Functional performance Functional status health issues are not documented Disease KR-ADTZL-Yrxyyz 310 [facility] Work Phone: Mental Status Date Assessment Result Facility NEGATED: Highlighted row Cognitive function [Interpretation] Cognitive status health issues are not documented Disease ZV-VUYHL-Uuwslj 310 [facility] Work Phone: Clinical Notes 01-08-2023 to 04-06-2024 GERARDO Vazquez - 04/06/2024 1:30 PM Craig Mcbride LPN - 03/22/2024 1:50 PM GERARDO Hunter - 02/23/2024 1:40 PM EDTTelephone Encounter - Meme Castrejon - 09/22/2023 9:36 AM EDTPatient Instructions Note Date & Type Note Facility 04-06-2024 History of Presen t illness Narrative Reason for Appointment: Patient ID: Jaleesa Arrieta is a 34 y.o. female who presents for Routine Visit Patient presents today for Return OB appointment. MEDICATIONS Current Outpatient Medications Medication Instructions azithromycin (Zithromax Z-Jayson) 250 MG tablet As directed levothyroxine (Synthroid, Levoxyl) 50 MCG tablet TAKE [...] BMI of 50.0-59.9, adult (CMS/HCC) Vaginal delivery HISTORY PAST MEDICAL HISTORY SOCIAL HISTORY Past Medical History: Diagnosis Date Abdominal pain Breast pain, right Cholelithiasis Encounter for cervical smear to confirm findings of recent normal smear following initial abnormal smear Angel's disease (CMS/HCC) Hypothyroidism (CMS/HCC) Morbid obesity (CMS/HCC) Morbid obesity with BMI of 50.0-59.9, adult ([facility]) Vaginal delivery Social History Tobacco Use Smoking [...] 06/2019 OTHER SURGICAL HISTORY 2020 IUI 07/10/20 [facility] SALPINGECTOMY Left 2011 ectopic REVIEW OF SYSTEMS Review of Systems: Review of Systems Constitutional: Negative. HENT: Negative. Eyes: Negative. Respiratory: Negative. Cardiovascular: Negative. Gastrointestinal: Negative. Genitourinary: Negative. Musculoskeletal: Negative. Skin: Negative. Neurological: Negative. All other systems reviewed and are negative. Hematological: Negative. Endocrine: Negative. Allergic/Immunologic: Negative. OBJECTIVE Objective: Physical Exam Constitutional: Appearance: Normal appearance. She is normal weight. HENT: Head: Normocephalic. Cardiovascular: Rate and Rhythm: Normal rate. Pulses: Normal pulses. Pulmonary: Effort: Pulmonary effort is normal. Breath sounds: Normal breath sounds. Abdominal: Palpations: Abdomen is soft. Musculoskeletal: General: Normal range of motion. Neurological: General: No focal deficit present. Mental Status: She is alert and oriented to person, place, and time. Psychiatric: Mood and Affect: Mood normal. Behavior: Behavior normal. Thought Content: Thought content normal. Judgment: Judgment normal. Vitals and nursing note reviewed. Vitals: Estimated body mass index is 48.58 kg/m as calculated from the following: Height as of 08/26/22: 5' 6 . Weight as of this encounter: 301 lb. BP: 128/80 Patient's last menstrual period was 08/24/2023. ASSESSMENT & PLAN ICD-10-CM 1. Third trimester Z34.93 POCT urinalysis dipstick manually resulted 2. 31 weeks gestation of Z3A.31 3. H/O premature delivery Z87.51 US biophysical profile w non stress test Return OB: Patient presents today for a routine obstetrics appointment. Patient is currently 31w2d . Patient states she is doing well but has complaints of being tired due to current . Patient has verbalizes frequent movement. labor precautions was discussed/given and patient was instructed to perform kick counts three times a day. Patient was given NST/BPP order to have scheduled weekly @ 32 weeks along w/her Growth US pt is doing q4. Orders Placed This Encounter Procedures US biophysical profile w non stress test POCT urinalysis dipstick manually resulted Follow Up: Patient is to return to office in 2 week for routine OB appointment. Documented by Toshia Castillo MA on behalf of: GERARDO Vazquez documented in this encounter [facility] 03-22-2024 History of Presen t illness Narrative Reason for Appointment: Patient ID: Jaleesa Arrieta is a 34 y.o. female who presents for Routine Visit Patient presents today for Return OB appointment. MEDICATIONS Current Outpatient Medications Medication Instructions azithromycin (Zithromax Z-Jayson) 250 MG tablet As directed levothyroxine (Synthroid, Levoxyl) 50 MCG tablet TAKE [...] BMI of 50.0-59.9, adult (CMS/HCC) Vaginal delivery HISTORY PAST MEDICAL HISTORY SOCIAL [...] 06/2019 OTHER SURGICAL HISTORY 2020 IUI 07/10/20 [facility] SALPINGECTOMY Left 2011 ectopic REVIEW OF SYSTEMS Review of Systems: Review of Systems All other systems reviewed and are negative. OBJECTIVE Objective: Physical Exam Constitutional: Appearance: Normal [...] nursing note reviewed. Exam conducted with a [employer] present. Vitals: Estimated body mass index is 48.92 kg/m as calculated from the following: Height as of 08/26/22: 5' 6 . Weight as of this encounter: 303 lb 1.9 oz. BP: 126/84 Patient's last menstrual period was 08/24/2023. ASSESSMENT & PLAN ICD-10-CM 1. Third trimester Z34.93 POCT urinalysis dipstick manually resulted 2. 29 weeks gestation of Z3A.29 Patient presents today for a routine obstetrics appointment. Patient is currently 29w1d with a Estimated Date of Delivery: 06/06/24. Patient vocied she has not eaten or really drank anything today as she woke up late, as patient is slightly dehydrated. Patient given another printout of TSH standing order as she has not had them drawn since first lab draw. Documented by Emma Mcbride LPN on behalf of: Tacho Menendez DO documented in this encounter [facility] 02-23-2024 History of Presen t illness Narrative [...] Morbid obesity with BMI of 50.0-59.9, adult ([facility]) Vaginal delivery HISTORY PAST MEDICAL HISTORY SOCIAL HISTORY Past Medical History: Diagnosis Date Abdominal pain Breast pain, right Cholelithiasis Encounter for cervical smear to confirm findings of recent normal smear following initial abnormal smear Angel's disease (CMS/HCC) Hypothyroidism (CMS/HCC) Morbid obesity (CMS/HCC) Morbid obesity with BMI of 50.0-59.9, adult ([facility]) Vaginal delivery Social History Tobacco Use Smoking [...] 06/2019 OTHER SURGICAL HISTORY 2020 IUI 07/10/20 [facility] SALPINGECTOMY Left 2011 ectopic REVIEW [...] nursing note reviewed. Exam conducted with a [employer] present. Vitals: Estimated body mass index is [...] of: GERARDO Vazquez documented in this encounter [facility] 10-09-2023 Note HNO ID: [id number] Author: LATONIA GREENE, PhD Service: ? Author Type: Psychologist Type: Progress Notes Filed: 10/17/2023 11:09 Note Text: [facility] BARIATRIC SURGERY BEHAVIORAL HEALTH EVALUATION BMI Surgical Pathway Visit type: Psychology Visit DATE OF SERVICE: October 09, 2023 TIME OF SERVICE: 1:00 PM - 2:00 PM COST CENTER: [facility] CPT CODE: - [id number] Virtual Psych Diagnostic Eval BILLING CODE: ENDO PSYL MAIN Jerel DATE OF FIRST SERVICE THIS CYCLE: October 09, 2023 SESSION #: 1 I have communicated my name and active licensure. The patient's identity and physical location (see below) were verified at the time of this visit. Either the patient or their legal patient financial representative has been informed of the risks and benefits of -- and alternatives to -- treatment through a remote evaluation and consents to proceed with the evaluation remotely. This evaluation is NOT intended for forensic, disability or child custody purposes. The patient e-signed a copy of the consent form via [employer] and the [facility] insurance benefits, fees for service, emergency [...] in case of emergency and/or disconnection. [address] [place] [address] (Change address in [place], was mother) Alternate [employer] Bibi Arrieta (Mother) [phone] (Home Phone) Patient identified the following plan to follow in case of emergency: Go to emergency room (nearest is [facility]) or call 911. IDENTIFYING INFORMATION: Ms. Jaleesa [...] pt has l (more content not included)... [facility] 09-22-2023 Telephone encounter Note Can not schedule patient as there is already a patient scheduled for that day and time. Please advise. Thanks Meme Castrejon [facility] 09-22-2023 Telephone encounter Note ----- Message from Anna Ortiz RD sent at 09/17/2023 3:17 PM EDT ----- Regarding: virtual follow up Please schedule for a virtual up 6/ at 1. The patient is aware, no call needed. Thank you! Anna [facility] 09-22-2023 Miscellaneous Notes Can not [...] levels, no answer, left vm. Tonya Senior APRN.[employer] documented in this encounter [facility] 09-17-[address] - 09/17/2023 3:12 PM EDT 1. Read Nutritional Guidelines Section of Your Guide to Surgery by next session [email or web address] -/[email or web address]/ [email or web address]?[email or web address] 2. Do not skip [...] full-liquid diet. Examples: Slim Fast Advanced Nutrition [place] Breakfast Essentials Light Start Drink mixed with [...] Bariatric Multivitamin and Calcium Citrate (total of 5543-6429 mg/day) * take calcium citrate separately from Multivitamin with iron at least 2 hours apart and 4 hours apart from additional calcium www.[email or web address] - Bariatric Choice: 4 Complete Multivitamins (chewables) per day Www.bariatricchoice.com - Bariatric Advantage: 2 Multivitamins and 3 Calcium Citrate Chewables per day * take calcium citrate separately from Multivitamin with iron at least 2 hours apart and 4 hours apart from additional calcium Www.bariatricadvantage.Moka Start practicing eating slowly, chewing each bite of food 20-30 x per bite, making meals last 20-30 minutes, separatign food and fluids by 30 minutes . Have all meals and snacks at the table with no distractions. Make placemat for reminders; work towards normal sleep/wake pattern Pre-op goal weight: 281 pounds Protein needs: 85 grams per day documented in this encounter [facility] 09-17-2023 Note HNO ID: [id number] Author: ANNA ORTIZ RD Service: ? Author Type: Registered Dietitian Type: Progress Notes Filed: 09/17/2023 15:19 Note Text: [facility] Nutrition Therapy: Virtual Consult - Initial Assessment I have communicated my name and active licensure. The patient?s identity and physical location were verified at the time of this visit. Either the patient or their legal patient financial representative has been informed of the risks [...] Your Guide to Surgery by next session [email or web address] -/[email or web address]/files/[email or web address]/ [email or web address]?[email or web address] 2. Do not skip [...] Examples: ? Slim Fast Advanced Nutrition ? [place] Breakfast Essentials ?Light Start? Drink mixed with [...] AM, 2 in the PM) www.bariatricfusion.com - [employer]: 1 Bariatric Multivitamin and Calcium Citrate (total of 1325-0458 mg/day) * take calcium citrate separately from Multivitamin with iron at least 2 hours apart and 4 hours apart from additional calcium www.SheZoom.Moka - Bariatric Choice: 4 Complete Multivitamins (chewables) [...] and using Phen (more content not included)... [facility] 09-17-2023 History of Presen t illness Narrative [facility] Nutrition Therapy: Virtual Consult - Initial Assessment I have communicated my name and active licensure. The patient s identity and physical location were verified at the time of this visit. Either the patient or their legal patient financial representative has been informed of the risks [...] to Surgery by next session [email or web address] -/[email or web address]/files/org/[email or web address]/ [email or web address]?la=en 2. Do not skip [...] full-liquid diet. Examples: Slim Fast Advanced Nutrition [place] Breakfast Essentials Light Start Drink mixed with [...] AM, 2 in the PM) www.bariatricfusion.com - [employer]: 1 Bariatric Multivitamin and Calcium Citrate (total of 9274-8008 mg/day) * take calcium citrate separately from Multivitamin with iron at least 2 hours apart and 4 hours apart from additional calcium www.SheZoom.Moka - Bariatric Choice: 4 Complete Multivitamins (chewables) per day Www.bariatricchoice.com - Bariatric Advantage: 2 Multivitamins and 3 Calcium Citrate Chewables per day * take calcium citrate separately from Multivitamin with iron at least 2 hours apart and 4 hours apart from additional calcium Www.bariatricadvantage.Moka Start practicing eating slowly, chewing each bite [...] suggested by 180 Initial weight: 295 lbs. Thomson body weight is 155 lbs. Excess body weight is 140 lbs. Goal weight pre-op is 281 lbs. Protein needs are estimated at 85gm (1.2 - protein/kg IBW) Patient meets the National Institutes of Health guidelines for weight loss surgery and has [employer] Insurance therefore is required to complete 0 [...] rolls, sandwich, chips Snack - slim Jims kapil cNikkivookies cheese crackers Beverages - water, juice Alcohol- [...] TIME: 2:25 PM documented in this encounter [facility] 09-11-2023 Telephone encounter Note Attempted to call pt, re: hypothyroid and low vitamin d levels, no answer, left vm. Tonya Senior APRN.MERON [facility] 09-01-2023 Note HNO ID: [id number] Author: LATONIA GREENE, PhD Service: ? Author Type: Psychologist Type: Progress Notes Filed: 09/01/2023 13:22 Note Text: [facility] Progress Note 09/01/2023 Billing code: Jerel Patient did not attend, cancel, or reschedule this appointment. Provider left HIPAA compliant voicemail and MyChart message with contact information to reschedule. Latonia Greene, PhD Clinical Psychologist [facility] 09-01-2023 History of Presen t illness Narrative [facility] Progress Note 09/01/2023 Billing code: Jerel Patient did not attend, cancel, or reschedule this appointment. Provider left HIPAA compliant voicemail and MyChart message with contact information to reschedule. Latonia Greene, PhD Clinical Psychologist documented in this encounter [facility] 08-20-2023 Note HNO ID: [id number] Author: TONYA SENIOR APRN.MERON Service: ? Author Type: Nurse Practitioner Type: Progress Notes Filed: 08/20/2023 16:21 Note Text: have communicated my name and active licensure. The patient's identity and physical location were verified at the time of this visit. Either the patient or their legal patient financial representative has been informed of the risks and benefits of -- and alternatives to -- treatment through a remote evaluation and consents to proceed with the evaluation remotely. BMI MEDICAL CONSULT I have communicated my name and active licensure. The patient's identity and physical location were verified at the time of this visit. Either the patient or their legal patient financial representative has been informed of the risks [...] HEMOGLOBIN A1C - (more content not included)... [facility] 08-20-2023 History of Presen t illness Narrative Images from the original note were not included. have communicated my name and active licensure. The patient's identity and physical location were verified at the time of this visit. Either the patient or their legal patient financial representative has been informed of the risks and benefits of -- and alternatives to -- treatment through a remote evaluation and consents to proceed with the evaluation remotely. BMI MEDICAL CONSULT I have communicated my name and active licensure. The patient's identity and physical location were verified at the time of this visit. Either the patient or their legal patient financial representative has been informed of the risks [...] 50-59.9 in adult ([facility]) - ICD9: V85.43, ICD10: Z68.43 (primary diagnosis) [...] Obesity Medicine Visit documented in this encounter [facility] 06-13-2023 Evaluation note Encounter Date [...] 8 weeks -Handed patient self referral to [facility] bariatric surgery program -Oegac-ur-yvah A1c December 2022 5.4%-Follow up in clinic in 8 weeksThis note was created with voice recognition software. Please excuse errors in oven unloader. Jun, Dietary surveillance and counseling (ICD-10 - [...] for a goal of 5% weight reduction. [employer] Other 08-30-2023 Evaluation note* Encounter Date Diagnosis [...] on in the past and denies side zshopja-Lmkas-dm-care A1c today 5.4%-Follow up in clinic in 4 weeksThis note was created with voice recognition software. Please excuse errors in oven unloader. Dec, Dietary surveillance and counseling (ICD-10 - [...] premade protein drink for breakfast, by plain Cymro yogurt and flavor yourself with cinnamon or [...] with the patient, and documenting clinical information. [employer] Other Chief complaint+Reason for visit Narrative* Chief Complaint Obesity Reason for Visit Exercise counseling Severe obesity (BMI >= 40) [facility] Work Phone: Chief complaint+Reason for visit Narrative* Chief Complaint Pos test, Cramping, Vaginal bleeding Reason for Visit Exercise counseling Severe obesity (BMI >= 40) [facility] Work Phone: Evaluation noteNo assessment information available [facility] Work Phone: evaluation note* Diagnosis Onset Date Resolution Status Exercise counseling acute Severe obesity (BMI >= 40) delilah kevin [facility] Work Phone: evaluation note* Diagnosis Body mass index (BMI) of 50-59.9 in adult ([facility])- Primary Body Mass Index 50.0-59.9, adult Angel's thyroiditis Chronic lymphocytic thyroiditis High blood cholesterol Pure hypercholesterolemia [facility] Diagnosis NO SHOW- Primary [facility]* Diagnosis Obesity, Class III, BMI 40-49.9 (morbid obesity) ([facility])- Primary Morbid obesity Dietary counseling Dietary surveillance and counseling documented [facility]* Diagnosis Vitamin D deficiency- Primary Unspecified vitamin D deficiency [facility]* Diagnosis 25 weeks gestation of Second trimester state, incidental Diabetes mellitus screening Screening for diabetes mellitus size inconsistent with dates H/O premature [facility] Encounter for follow-up ultrasound of anatomy- Primary History of pre-eclampsia in prior , currently with other poor obstetric history History of delivery, currently with history of pre-term labor Obesity affecting in second trimester, unspecified obesity type [facility] Diagnosis Third trimester state, incidental 29 weeks gestation of documented in this encounter [facility] Healthcare[facility]* Diagnosis Third trimester state, incidental 31 weeks gestation of H/O premature delivery documented in this encounter [facility] HealthcareHistory general Narrative - Reported* Type Description Date Surgical History adnoidectomy Surgical History gall bladder Surgical History L Fallopian tube removed Hospitalization History See Above [facility] Other Hospital Discharge instructions Additional Instructions You may take lrqw-iuk-xodtwrs cough and cold medication as needed You may take jeko-jhe-ycjrbyw Tylenol and/or ibuprofen as needed Increase oral fluids Follow-up with family doctor as needed Return to the ER for any acute difficulty breathing high fever vomiting [facility] Hospital Discharge instructions Additional Instructions Nothing into vagina until seen by EMPLOYMENT EVALUATOR/CASE MANAGER May take Tylenol for discomfort Increase oral fluids Follow-up with EMPLOYMENT EVALUATOR/CASE MANAGER Return to the ER for heavy bleeding greater than a pad an hour feeling dizzy lightheaded or any other [facility] Work Phone: Hospital Discharge instructions Additional Instructions Follow-up with your OB in the next week.[facility] Work Phone: InstructionsNot on filedocumented in this encounter [facility] Diagnostic Procedure Only (Routine) - Pending Review Specialty Diagnoses / Procedures Referred By Contac t Referred To Contact US IMAGING Diagnoses Body mass index (BMI) of 50-59.9 in adult (HCC) Procedures US ABD RIGHT UPPER QUADRANT US ABDOMINAL REAL TIME W/IMAGE LIMITED Tonya Senior APRN.[employer] [address] [id number] [facility] Referral ID Status Reason Start Date Expiration Date Visits Requested Visits Authorized [id number] Pending Review Auto-Generat ed Referral 08/20/2023 09/18/2024 1 1 * Outpatient Procedure (Routine) - Pending Review Specialty Diagnoses / Procedures Referred By Contac t Referred To Contact [facility] Diagnoses Body mass index (BMI) of 50-59.9 in adult (HCC) Procedures ECG COMPLETE ECG ROUTINE ECG W/LEAST 12 LDS W/I&R Tonya Senior APRN.[employer] [address] [place] [address] [facility] [place] [address] Referral ID Status Reason Start Date Expiration Date Visits Requested Visits Authorized [id number] Pending Review Auto-Generat ed Referral 08/20/2023 08/19/2024 1 1 [facility] Summary Purpose Family History No [...] section and content) DATE CREATED AUTHOR 10/31/[address] [facility] DATE CREATED AUTHOR AUTHOR'S ORGANIZ ATION 04/23/2020 [facility] DATE CREATED AUTHOR AUTHOR'S ORGANIZ ATION 08/08/2020 [facility] DATE CREATED AUTHOR AUTHOR'S ORGANIZ ATION 08/22/2020 [facility] DATE CREATED AUTHOR AUTHOR'S ORGANIZ ATION 06/11/2022 [facility] [facility] DATE CREATED AUTHOR AUTHOR'S ORGANIZ ATION 09/06/2023 [facility] DATE CREATED AUTHOR AUTHOR'S ORGANIZ ATION 10/03/2023 [facility] DATE CREATED AUTHOR AUTHOR'S ORGANIZ ATION 10/18/2023 [facility] DATE CREATED AUTHOR AUTHOR'S ORGANIZ ATION 01/20/2024 [facility] DATE CREATED AUTHOR AUTHOR'S ORGANIZ ATION 03/19/2024 [facility] DATE CREATED AUTHOR AUTHOR'S ORGANIZ ATION 04/02/2024 [facility] DATE CREATED AUTHOR AUTHOR'S ORGANIZ ATION 04/09/2024 [facility] EPIC Care Teams (unrecognized sec tion and content) Team Status: Inactive Member Role Status Dates Services Family Health Primary Care Provider Active Ck To PA-C Emergency Provider Active Team Status: Active Member Role Status Dates Services Family Health Primary Care Provider Active Team Status: Inactive Member Role Status Dates Services Family Health Primary Care Provider Active ALFONSO Mcmillan-ADRIANA Emergency Provider Active Team Status: Inactive Member [...] October 06, 2023 End: October 06, 2023 ALFONSO Mcmillan-BC Emergency Provider Active Start: October 06, 2023 [...] or prosecute any alcohol or drug abuse patient.[facility] the event this information is protected by the Federal Confidentiality of Alcohol and Drug Abuse Patient Records regulations: The Federal rules restrict any use of the information to criminally investigate or prosecute any alcohol or drug abuse patient.[facility] the event this information is protected by the Federal Confidentiality of Alcohol and Drug Abuse Patient Records regulations: The Federal rules restrict any use of the information to criminally investigate or prosecute any alcohol or drug abuse patient.[facility] the event this information is protected by the Federal Confidentiality of Alcohol and Drug Abuse Patient Records regulations: The Federal rules restrict any use of the information to criminally investigate or prosecute any alcohol or drug abuse patient.[facility] the event this information is protected by the Federal Confidentiality of Alcohol and Drug Abuse Patient Records regulations: The Federal rules restrict any use of the information to criminally investigate or prosecute any alcohol or drug abuse patient.[facility] the event this information is protected by the Federal Confidentiality of Alcohol and Drug Abuse Patient Records regulations: The Federal rules restrict any use of the information to criminally investigate or prosecute any alcohol or drug abuse patient.[facility] FOR RECORDS PERTAINING TO PATIENTS [...] BE BASED ON THE PRIMARY CLINICAL RECORDS. [facility] [employer] [facility]. provides no warranty or guarantee of the accuracy or completeness of information in this document.
--- NOTE | 2024-04-16 15:15 | US_ITS ---
[address] [address] Patient Name: FABRIZIO PAINTING MRN: [id number] date: 1990 Sex: F Assigned Patient Location: [facility] Current Patient Location: [facility] Accession/Order Number: [id number] Exam Date: 04/16/2024 15:22 Report Date: 04/16/2024 16:24 At the request of: HENRY URBAN Procedure: US OB BPP w non-stress EXAMINATION: US OB BPP w non-stress HISTORY:H/O PREMATURE DELIVERY Z87.51 COMPARISON: Ultrasound OB growth 03/22/2024 TECHNIQUE: Ultrasound biophysical profile was performed in the radiology department. BREATHING MOVEMENTS: 2 GROSS BODY MOVEMENTS: 2 TONE: 2 QUALITATIVE AMNIOTIC FLUID VOLUME: 2 PRESENTATION: CEPHALIC HEART RATE: 153.41 bpm AMNIOTIC FLUID VOLUME: 11.38 cm GESTATIONAL AGE: 32 weeks 5 days US/US OB BPP w non-stress IMPRESSION: Total biophysical profile score: 8 Electronically authenticated by: FAM PHELPS Date: 04/16/2024 16:24
[2024-04-16 16:04] VITALS: BP 131/70; PULSE 100
== END 2024-04-16 16:30 | disposition home or self-care (01) ==
LOC: FBCO 06:12 → FBC 15:15
PROVIDERS: Visit Provider Physician Assistant
DX: Z87.51 Personal history of pre-term labor (principal); Z3A.32 32 weeks gestation of pregnancy
CPT/HCPCS: 76818

== ENCOUNTER 2024-04-21 06:07 | Outpatient (OUT) | payer MEDICAID, SELFPAY ==
--- OUTSIDE RECORDS SUMMARY | 2024-04-21 06:10 | XMS_ITS | CCD ---
Author Organization [facility] Care Team Providers Care Blanket Maker Name Role Phone Agustin Patton Unavailable Unavailable Agustin Patton Unavailable Unavailable Bayron Mccarty Unavailable Unavailable Unavailable Unavailable Unavailable Unavailable Unavailable Unavailable [facility] Primary Care Provider 1( [phone] DEM[address] Emergency Provider DR TACHO MENENDEZ Attending Unavailable DR TACHO MENENDEZ Consulting Unavailable DR TACHO MENENDEZ Admitting Unavailable [facility] Primary Care Provider 1( [phone] Anabella [facility] Marychuy E Emergency Provider Nicholas Michaels Unavailable [facility] Primary Care Provider DO Nicholas Michaels Attending Provider Unavailable Primary Care Provider Unavailabl e Unavailable Primary Care Provider Unavailabl e LATONIA GREENE Attending Unavailable TONYA SENIOR Attending Unavailable [facility] Primary Care Provider Anabella [facility] Marychuy E Emergency Provider LATONIA GREENE Referring Unavailable LATONIA GREENE Attending Unavailable ANNA ORTIZ Attending Unavailable TONYA SENIOR Referring Unavailable TONYA SENIOR Referring Unavailable TACHO MENENDEZ Referring Unavailable MAKEDA GROSS Attending Unavailable TACHO MENENDEZ Referring Unavailable Unavailable Primary Care Provider Unavailabl e [facility] Primary Care Provider DEMETRIUS To Emergency Provider Unavailable Primary Care Provider Unavailabl DO Devika Christie Emergency Provider Ck To Attending Unavailable Ck To Admitting Unavailable [facility] Primary Care Unavaila Marychuy Rey Attending Unavailable Marychuy Kyle Admitting Unavailable [facility] Primary Care Unavaila Nicholas Willams Attending Unavailable Nicholas Michaels Admitting Unavailable [facility] Primary Care Unavaila ble [facility] Primary Care Unavaila Devika Hillman Attending [...] mg/ml oral solution (2 sources) Phenothiazine, Uncompetitive R-noxkvg-U-aspartate Receptor Antagonist, Sigma-1 Agonist Start: 02-26-2024 take [...] Daily 30 tablet 11 10/30/2023 10/29/2024 Active [place] (No Known Home Meds) (3 sources) Start: 10-06-2023 [place] (No Kn own Home Meds) Active October 06, 2023 12:00am Start: 06-18-2022 [place] (No Kn own Home Meds) Active June [...] oral solution (7 sources) alpha-Adrenergic Agonist, Uncompetitive D-zdurcm-M-asparta te Receptor Antagonist, Sigma-1 Agonist Start: 2 [...] 26, 2019 12:58pm July 28, 2020 7:27pm Hfvwbign-Qkc-Gq-Fa () 1 mg Tablet (7 sources) Start: 12-31-2020 End: 07-04-2021 take 1 tablet by mouth once Ravyncif-Gbi-Xr-Fa () 1 mg Tablet Discontinued TAB PO December 30, 2020 11:00pm July 04, 2021 9:48am Start: 12-31-2020 End: 07-04-2021 take 1 tablet by mouth once Wlxhzgta-Tki-Hw-F a () 1 mg Tablet Discontinued TAB PO December 31, 2020 12:00am July 04, 2021 10:48am progesterone 100 mg oral capsule (9 sources) Progesterone Start: 07-28-2020 End: 12-31-2020 Progesterone Micronized Discontinued 100 MG VAGINAL Twice daily July 28, 2020 12:00am December 31, 2020 9:55am Start: 06-19-2020 take 1 capsule by [facility] twice daily Progesterone Micronized 100 MG Oral Capsule TAKE 1 CAPSULE Twice daily insert capsules vaginally Quantity: 30 Refills: 3 Bayron Mccarty MD Start : 19-Jun-2020 Active sennosides, nursing home 8.6 mg oral tablet (1 source) take 4 tablets by [facility] every twenty-four hours Senna 8.6 MG 4 [...] UA Negative Negative - 4(70) +++ mg/dL [facility] Blood, UA Negative Negative - 50 Bradley/mcL [facility] Clarity, UA Clear [facility] Color, UA Yellow [facility] Glucose, UA Negative Negative - 1999(110) ++++ mg/dL [facility] Interpretation and review of laboratory results Abnormal [facility] Ketones, UA Negative Negative - 160(16) ++++ mg/dL [facility] Leukocytes, UA Positive Negative - 500+++ Gabby/mcL [facility] Comment on above: small Nitrite, UA Negative Negative - Positive [facility] pH, UA 7 5 - 9 [facility] Protein, UA Negative Negative - 1999(20) ++++ mg/dL [facility] Spec Grav, UA 1.02 1 - 1.03 [facility] Urobilinogen, UA 0.2 0.2 - 12 mg/dL [facility] Urinalysis macro (dipstick) panel (U)on 03-22-2024 Bilirubin, UA Positive Negative - 4(70) +++ mg/dL [facility] Blood, UA Negative Negative - 50 Bradley/mcL [facility] Clarity, UA Clear [facility] Color, UA Yellow [facility] Glucose, UA Negative Negative - 1999(110) ++++ mg/dL [facility] Interpretation and review of laboratory results Normal [facility] Ketones, UA Positive Negative - 160(16) ++++ mg/dL [facility] Leukocytes, UA Positive Negative - 500+++ Gabby/mcL [facility] Nitrite, UA Negative Negative - Positive [facility] pH, UA 7 5 - 9 [facility] Protein, UA Positive Negative - 1999(20) ++++ mg/dL [facility] Spec Grav, UA 1.025 1 - 1.03 [facility] Urobilinogen, UA 1.0 0.2 - 12 mg/dL [facility] ALL CBC WITH AUTO DIFFon BASOPHILS ABSOLUTE AUTO 0 [facility] Basophils/100 WBC (Bld) 0.5 % 0.2 - 2.0 % [facility] Eosinophils/100 WBC (Bld) 2.4 % 0.9 - 7.0 % [facility] Erythrocyte distribution width (RBC) [Ratio] 13.2 % 11.0 - 15.0 % [facility] Hematocrit (Bld) [Volume fraction] 33.2 % Low 36.0 - 48.0 % [facility] Hemoglobin (Bld) [Mass/Vol] 11.1 g/dL Low 12.0 - 16.0 g/dL [facility] IMMATURE GRANULOCYTES ABS AUTO 0.02 [facility] Immature granulocytes/100 WBC (Bld) 0.3 % 0.0 - 0.5 % [facility] Interpretation and review of laboratory results Abnormal [facility] LYMPHOCYTES ABSOLUTE AUTO 2.1 [facility] Lymphocytes/100 WBC (Bld) 32.5 % 20.5 - 60.0 % [facility] MCH (RBC) [Entitic mass] 30.5 pg 26.7 - 34.0 pg [facility] MCHC (RBC) [Mass/Vol] 33.4 g/dL 29.9 - 35.2 g/dL [facility] MCV (RBC) [Entitic vol] 91.2 fL 81.0 - 99.0 fL [facility] MONOCYTES ABSOLUTE AUTO 0.3 [facility] Monocytes/100 WBC (Bld) 4.6 % 1.7 - 12.0 % [facility] NEUTROPHILS ABSOLUTE AUTO 3.9 [facility] Neutrophils/100 WBC (Bld) 59.7 % 43.0 - 75.0 % [facility] Platelet mean volume (Bld) [Entitic vol] 9.3 fL Low 9.5 - 13.5 fL [facility] TBH EO # 0.2 [facility] TB PLT [address] RBC 3.[address] WBC 6.6 [facility] BioFire Not Detectedon 03-05 BioFire Not Detected Not detected Normal Not Detecte T adele [facility] Comment on above: Result Comment: This is a duplicate RP2.1 COVID (PCR) result to be used for statistical tracking purpose only. PERFORMED BY: [place] [address] PATHOLOGIST FERN CUTTER LION STANLEY M.D. Performed By: #### B IOFIRECOVNOTDE, QS, RESP PANEL UPP. #### [address] COVID-19 Detected/Not Detect edOrdered By: Devika De La Garza on 03-05-2024 SARS-CoV-2 (COVID-19) RNA YANET+non-probe Ql (Nph) Not detected Not Detecte [facility] Comment on above: This is a duplicate RP2.1 COVID (PCR) result to be used for statistical tracking purpose only. ECG 12 lead ECGon 03-05-2024 [address] [facility] [place] [address] Electrocardiograph Report Signed Patient: Jaleesa Arrieta MR#: [id number] [birth year] : 1990 Acct:[id number] Age/Sex: 33 / F ADM Date: 03/05/24 Loc: ER Room: Type: [facility] ER Attending Dr: Ordering Provider: Devika De [...] Confirmed by DEVIKA DE LA GARZA DO ([id number]) on 03/06/2024 1:44:25 AM Referred By: Electronically Signed By: DEVIKA DE LA GARZA DO Transcribed By: MUS Signed By Devika De La Garza DO 03/06 0144 Normal [facility] Quick Strepon 03-05-2024 Quick Strep Streptococcus pyogen es Ag [Presence] in Throat by Rapid immunoassay Negative for Group A Strep Antigen Note 1 NOTE 2 Results are those of a screening test. NOTE 3 If clinically indicated please order a culture. NOTE 4 NOTE 5 Reference range = Negative PERFORMED BY: [place] [address] PATHOLOGIST FERN CUTTER LION STANLEY M.D. Normal [facility] Comment on above: Performed By: #### B IOFIRECOVNOTDE, QS, RESP PANEL UPP. #### [facility] [address] [id number] [facility] Respiratory (Upper) Panel, P CRon 03-05-2024 Respiratory [...] A H3 Blank Space ------ PERFORMED BY: [facility] [address] [address] PATHOLOGIST FERN CUTTER LION STANLEY M.D. Normal [facility] Comment on above: Performed By: #### B IOFIRECOVNOTDE, QS, RESP PANEL UPP. #### [facility] [address] [id number] [facility] Respiratory pathogens DNA an d RNA panel - Nasopharynx by YANET with non-probe detectionOrdered By: Devika De La Garza on 03-05-2024 Respiratory pathogens DNA and RNA panel YANET+non-probe (Nph) [facility] Streptococcus pyogenes antig en detectionOrdered By: Devika De La Garza on 03-05-2024 S. pyogenes Ag Ql (Unsp spec) [facility] XR chest 1V portableon 03-[address] [facility] [place] [address] XRay Report Signed Patient: Jaleesa Arrieta MR#: [id number] [birth year] : 1990 Acct:[id number] Age/Sex: 33 / F ADM Date: 03/05/24 Loc: ER Room: Type: [facility] ER Attending Dr: Copies to: Devika De [...] Priscilla Cunningham M.D.03/05/2024 9:34 PM Dictation Location: [place] [address] Transcribed By: LIDA 03/05/242133 Dictated By: Priscilla Cunningham MD 03/05/242130 Signed By: 03/05/242133 Normal [facility] Quick Strepon 02-26-2024 Quick Strep Streptococcus pyogen es Ag [Presence] in Throat by Rapid immunoassay Negative for Group A Strep Antigen Note 1 NOTE 2 Results are those of a screening test. NOTE 3 If clinically indicated please order a culture. NOTE 4 NOTE 5 Reference range = Negative PERFORMED BY: [place] [address] PATHOLOGIST FERN CUTTER LION STANLEY M.D. Normal [facility] Comment on above: Performed By: #### Q S #### [facility] [address] Streptococcus pyogenes antig en detectionOrdered By: Ck To on 02-26-2024 S. pyogenes Ag Ql (Unsp spec) [facility] Urinalysis macro (dipstick) panel (U)on 02-23-2024 Bilirubin, UA Negative Negative - 4(70) +++ mg/dL [facility] Blood, UA Negative Negative - 50 Bradley/mcL [facility] Clarity, UA Clear [facility] Color, UA Yellow [facility] Glucose, UA Negative Negative - 1999(110) ++++ mg/dL [facility] Interpretation and review of laboratory results Abnormal [facility] Ketones, UA Negative Negative - 160(16) ++++ mg/dL [facility] Leukocytes, UA Positive Negative - 500+++ Gabby/mcL [facility] Comment on above: small Nitrite, UA Negative Negative - Positive [facility] pH, UA 7 5 - 9 [facility] Protein, UA Negative Negative - 2000(20) ++++ mg/dL [facility] Spec Grav, UA 1.02 1 - 1.03 [facility] Urobilinogen, UA 0.2 0.2 - 12 mg/dL [facility] Alanine aminotransferase [En zymatic activity/volume] in Serum or PlasmaOrdered By: Marychuy Jeronimoimore on 10-06-2023 ALT [Catalytic activity/Vol] 13 U/L Normal 7-52 [facility] Comment on above: Performed By: #### C BC, CMP, HCGQNT #### [facility] [address] Albumin [Mass/volume] in Ser um or Plasma by Bromocresol green (BCG) dye binding methoOrdered By: Marychuy Bullimore on 10-06-2023 Albumin BCG dye [Mass/Vol] 3.8 g/dL 3.5-5.7 [facility] Alkaline phosphatase [Enzyma tic activity/volume] in Serum or PlasmaOrdered By: Marychuy Jeronimosarinaore on 10-06-2023 ALP [Catalytic activity/Vol] 61 U/L Normal 34-104 [facility] Comment on above: Performed By: #### C BC, CMP, HCGQNT #### [address] Aspartate aminotransferase [ Enzymatic activity/volume] in Serum or PlasmaOrdered By: Marychuy Bullimore on 10-06-2023 AST [Catalytic activity/Vol] 13 U/L Normal 13-39 [facility] Comment on above: Performed By: #### C BC, CMP, HCGQNT #### [address] Automated basophil %Ordered By: Marychuy Anabella on 10-06-2023 Basophils/100 WBC (Bld) 0.6 % Normal . [facility] Comment on above: Performed By: #### C BC, CMP, HCGQNT #### [address] Automated basophil countOrde red By: Marychuy Anabella on 10-06-2023 Basophils (Bld) [#/Vol] 0.0 10*3/uL Normal 0.0-0.2 [facility] Comment on above: Result Comment: PERF ORMED BY: [place] [address] PATHOLOGIST FERN CUTTER LION STANLEY M.D. Performed By: #### C BC, CMP, HCGQNT #### [address] Automated blood monocyte cou ntOrdered By: Marychuy Jeronimosariah on 10-06-2023 Monocytes (Bld) [#/Vol] 0.5 10*3/uL Normal 0.0-0.8 [facility] Comment on above: Performed By: #### C BC, CMP, HCGQNT #### [address] Automated eosinophil %Ordere d By: Marychuy Bullimore on 10-06-2023 Eosinophils/100 WBC (Bld) 0.7 % Normal . [facility] Comment on above: Performed By: #### C BC, CMP, HCGQNT #### [facility] [address] [place] [address] Automated eosinophil countOr dered By: Marychuy Phaniimore on 10-06-2023 Eosinophils (Bld) [#/Vol] 0.1 10*3/uL Normal 0.0-0.45 [facility] Comment on above: Performed By: #### C BC, CMP, HCGQNT #### [facility] [address] [place] [address] Automated epithelial cells c ount in urine sediment (number/area)Ordered By: Marychuy Phaniimore on 10-06-2023 Epithelial cells Auto (Urine sed) [#/Area] 3-4 [HPF] 0-2 [facility] Automated monocyte %Ordered By: Marychuy Phaniimore on 10-06-2023 Monocytes/100 WBC (Bld) 6.7 % Normal . [facility] Comment on above: Performed By: #### C BC, CMP, HCGQNT #### [facility] [address] [place] [address] Automated neutrophil %Ordere d By: Marychuy Phaniimore on 10-06-2023 Neutrophils/100 WBC (Bld) 54.4 % Normal . [facility] Comment on above: Performed By: #### C BC, CMP, HCGQNT #### [address] Bacteria [Presence] in Urine by AutomatedOrdered By: Marychuy Phaniimore on 10-06-2023 Bacteria Auto Ql (U) None seen [HPF] None Seen [facility] Bilirubin Test strip Ql (U)O rdered By: Marychuy Bullimore on 10-06-2023 Bilirubin Ql (U) Negative Negative [facility] Bilirubin.total [Mass/volume ] in Serum or PlasmaOrdered By: Marychuy Bullimore on 10-06-2023 Bilirubin [Mass/Vol] 0.2 mg/dL Low 0.3-1.0 [facility] Comment on above: Performed By: #### C BC, CMP, HCGQNT #### [facility] [address] [place] [address] [place] Calcium [Mass/volume] in Ser um or PlasmaOrdered By: Marychuy Bullimore on 10-06-2023 Calcium [Mass/Vol] 9.4 mg/dL Normal 8.6-10.3 [facility] Comment on above: Performed By: #### C BC, CMP, HCGQNT #### [facility] [address] Carbon dioxide, total [Moles /volume] in Serum or PlasmaOrdered By: Marychuy Bullimore on 10-06-2023 CO2 [Moles/Vol] 25.5 mmol/L Normal 21.0-31.0 [facility] Comment on above: Performed By: #### C BC, CMP, HCGQNT #### [facility] [address] [place] [address] [place] Chloride [Moles/volume] in S sondra or PlasmaOrdered By: Marychuy Bullimore on 10-06-2023 Chloride [Moles/Vol] 105 mmol/L Normal 98-107 [facility] Comment on above: Performed By: #### C BC, CMP, HCGQNT #### [facility] [address] Choriogonadotropin.beta subu nit [Units/volume] in Serum or PlasmaOrdered By: Marychuy Phaniimore on 10-06-2023 HCG.beta subunit Qn 2799.00 m[IU]/mL [facility] Comment on above: Approximate Approxim ate hCG Gestational Age Range (mIU/ml) (weeks)0.2-1 5-50 1-2 50-500 2-3 100-5,000 3-4 500-10,000 4-5 1,000-50,000 5-6 10,000-100,000 6-8 15,000-200,000 8-12 10,000-100,000 Color of Urine by AutoOrdere d By: Marychuy Kyle on 10-06-2023 Color (U) Yellow Normal Yellow [facility] Comment on above: Order Comment: NEED MORE SPECIMEN Name Collection Type:: Clean-Voided Midstream Performed By: #### A DDONUAPLUS #### [address] Complete Blood Count Auto Di ffon 10-06-2023 Mean Corpuscular HGB Conc 34.4 g/dL Normal 32.0-35.0 [facility] Comment on above: Performed By: #### C BC, CMP, HCGQNT #### [address] Monocytes/100 WBC (Bld) 17.37 % Normal 0.00-20.00 [facility] Comment on above: Performed By: #### C BC, CMP, HCGQNT #### [address] NRBC% 0.2 /100{WBC} Normal 0-0.5 [facility] Comment on above: Performed By: #### C BC, CMP, HCGQNT #### [address] Comprehensive Metabolic Pane panchito 10-06-2023 Albumin [Mass/Vol] 3.8 g/dL Normal 3.5-5.7 [facility] Comment on above: Performed By: #### C BC, CMP, HCGQNT #### [address] Creatinine Clr Calc Pharmacy 180.48 Normal [facility] Comment on above: Performed By: #### C BC, CMP, HCGQNT #### [place] [address] [place] GFR/1.73 sq M.predicted MDRD (S/P/Bld) [Vol rate/Area] mL/min/{1.73_m2} Normal [facility] Comment on above: Performed By: #### C BC, CMP, HCGQNT #### [address] Creatinine [Mass/volume] in Serum or PlasmaOrdered By: Marychuy Kyle on 10-06-2023 Creatinine [Mass/Vol] 0.63 mg/dL Normal 0.60-1.20 [facility] Comment on above: Performed By: #### C BC, CMP, HCGQNT #### [facility] [address] [place] [address] [place] Dipstick and Microscopicon 0 10-06-2023 Appearance (U) Clear Normal Clear [facility] Comment on above: Order Comment: NEED MORE SPECIMEN Name Collection Type:: Clean-Voided Midstream Performed By: #### A DDONUAPLUS #### [place] [address] [place] Bacteria,Urine None Seen Normal None Seen [facility] Comment on above: Order Comment: NEED MORE SPECIMEN Name Collection Type:: Clean-Voided Midstream Performed By: #### A DDONUAPLUS #### [place] [address] [place] Bilirubin,Urine Negative Normal Negative [facility] Comment on above: Order Comment: NEED MORE SPECIMEN Name Collection Type:: Clean-Voided Midstream Performed By: #### A DDONUAPLUS #### [place] [address] [place] Glucose Ql (U) Normal Normal Normal [facility] Comment on above: Order Comment: NEED MORE SPECIMEN Name Collection Type:: Clean-Voided Midstream Performed By: #### A DDONUAPLUS #### [place] [address] [place] Hyaline Casts,Urine 0-8 Normal 0-8 [facility] Comment on above: Order Comment: NEED MORE SPECIMEN Name Collection Type:: Clean-Voided Midstream Result Comment: PERF ORMED BY: [place] [address] PATHOLOGIST FERN CUTTER LION STANLEY M.D. Performed By: #### A DDONUAPLUS #### [address] Ketones Ql (U) Negative Normal Negative [facility] Comment on above: Order Comment: NEED MORE SPECIMEN Name Collection Type:: Clean-Voided Midstream Performed By: #### A DDONUAPLUS #### [address] Leukocyte esterase Test strip Ql (U) 1+ High Negative [facility] Comment on above: Order Comment: NEED MORE SPECIMEN Name Collection Type:: Clean-Voided Midstream Performed By: #### A DDONUAPLUS #### [place] [address] [place] Nitrite,Urine Negative Normal Negative [facility] Comment on above: Order Comment: NEED MORE SPECIMEN Name Collection Type:: Clean-Voided Midstream Performed By: #### A DDONUAPLUS #### [address] Occult Blood,Urine Negative Normal Negative [facility] Comment on above: Order Comment: NEED MORE SPECIMEN Name Collection Type:: Clean-Voided Midstream Result Comment: PERF ORMED BY: [place] [address] PATHOLOGIST FERN CUTTER LION STANLEY M.D. Performed By: #### A DDONUAPLUS #### [address] Protein,Urine Negative Normal Negative [facility] Comment on above: Order Comment: NEED MORE SPECIMEN Name Collection Type:: Clean-Voided Midstream Performed By: #### A DDONUAPLUS #### [address] RBC LM.HPF (Urine sed) [#/Area] 0 /[HPF] Normal 0-4 [facility] Comment on above: Order Comment: NEED MORE SPECIMEN Name Collection Type:: Clean-Voided Midstream Performed By: #### A DDONUAPLUS #### [address] Specificy [place],Urine 1.017 Normal 1.001-1.030 [facility] Comment on above: Order Comment: NEED MORE SPECIMEN Name Collection Type:: Clean-Voided Midstream Performed By: #### A DDONUAPLUS #### [address] Squamous Epithelial Cell,Urine 3-4 High 0-2 [facility] Comment on above: Order Comment: NEED MORE SPECIMEN Name Collection Type:: Clean-Voided Midstream Performed By: #### A DDONUAPLUS #### [address] Urobilinogen,Urine Normal Normal Normal [facility] Comment on above: Order Comment: NEED MORE SPECIMEN Name Collection Type:: Clean-Voided Midstream Performed By: #### A DDONUAPLUS #### [address] WBC,Urine 3-4 Normal 0-4 [facility] Comment on above: Order Comment: NEED MORE SPECIMEN Name Collection Type:: Clean-Voided Midstream Performed By: #### A DDONUAPLUS #### [address] Erythrocyte distribution wid th [Ratio] by Automated countOrdered By: Marychuy Wangore on 10-06-2023 Erythrocyte distribution width (RBC) [Ratio] 13.4 % Normal 11.9-15.3 [facility] Comment on above: Performed By: #### C BC, CMP, HCGQNT #### [address] Erythrocytes [#/area] in Uri ne sediment by Automated countOrdered By: Marychuy Bullimore on 10-06-2023 RBC Auto (Urine sed) [#/Area] 0-1 [HPF] 0-4 [facility] Erythrocytes [#/volume] in B lood by Automated countOrdered By: Marychuy Bullimore on 10-06-2023 RBC (Bld) [#/Vol] 4.08 10*6/uL Normal 3.60-5.00 [facility] Comment on above: Performed By: #### C BC, CMP, HCGQNT #### [address] Glucose [Mass/volume] in Ser um or PlasmaOrdered By: Marychuy Kyle on 10-06-2023 Glucose [Mass/Vol] 100 mg/dL Normal 70-100 [facility] Comment on above: ADA recommended refe rence rangeRandom Glucose Reference Range is dependent on time and content of last meal. Glucose of more than 200 mg/dL in a nonstressed, ambulatory subject supports the diagnosis of Diabetes Mellitus. Result Comment: [place] om Glucose Reference Range is dependent on time and content of last meal. Glucose of more than 200 mg/dL in a nonstressed, ambulatory subject supports the diagnosis of Diabetes Mellitus. ADA recommended reference range Performed By: #### C BC, CMP, HCGQNT #### [address] HCG,Quantitativeon HCG,Quantitative 2799.00 m[iU]/mL Normal Th e [facility] Comment on above: Result Comment: Appr oximate Approximate hCG Gestational Age Range (mIU/ml) (weeks) 0.2-1 5-50 1-2 50-500 2-3 100-5,000 3-4 500-10,000 4-5 1,000-50,000 5-6 10,000-100,000 6-8 15,000-200,000 8-12 10,000-100,000 PERFORMED BY: [place] [address] PATHOLOGIST FERN CUTTER LION STANLEY M.D. Performed By: #### C BC, CMP, HCGQNT #### [address] Hematocrit [Volume Fraction] of Blood by Automated countOrdered By: Marychuy Kyle on 10-06-2023 Hematocrit (Bld) [Volume fraction] 36.7 % Normal 34.0-46.4 [facility] Comment on above: Performed By: #### C BC, CMP, HCGQNT #### [address] Hemoglobin [Mass/volume] in BloodOrdered By: Marychuy Kyle on 10-06-2023 Hemoglobin (Bld) [Mass/Vol] 12.6 g/dL Normal 11.8-15.4 [facility] Comment on above: Performed By: #### C BC, CMP, HCGQNT #### [facility] [address] Ketones Auto test strip (U) [Mass/Vol]Ordered By: Marychuy Kyle on 10-06-2023 Ketones (U) [Mass/Vol] Negative Negative [facility] Laboratory - UrinalysisOrder ed By: Mraychuy Jeronimoimore on 10-06-2023 Hyaline casts LM Ql (Urine sed) 0-8 [LPF] 0-8 [facility] Leukocytes [#/area] in Urine sediment by Automated countOrdered By: Marychuy Jeronimoimore on 10-06-2023 WBC Auto (Urine sed) [#/Area] 3-4 [HPF] 0-4 [facility] Leukocytes [#/volume] correc inocencia for nucleated erythrocytes in Blood by Automated counOrdered By: Marychuy Jeronimoimore on 10-06-2023 WBC corrected for nucl RBC Auto (Bld) [#/Vol] 7.4 10*3/uL 3.8-11.6 [facility] Leukocytes [#/volume] in Blo od by Automated countOrdered By: Marychuy Kyle on 10-06-2023 WBC (Bld) [#/Vol] 7.4 10*3/uL Normal 3.8-11.6 [facility] Comment on above: Performed By: #### C BC, CMP, HCGQNT #### [facility] [address] [place] [address] [place] Lymphocytes [#/volume] in Bl ood by Automated countOrdered By: Marychuy Kyle on 10-06-2023 Lymphocytes (Bld) [#/Vol] 2.8 10*3/uL Normal 1.00-4.8 [facility] Comment on above: Performed By: #### C BC, CMP, HCGQNT #### [facility] [address] [place] [address] [place] Lymphocytes/100 leukocytes i n Blood by Automated countOrdered By: Marychuy Kyle on 10-06-2023 Lymphocytes/100 WBC (Bld) 37.6 % Normal . [facility] Comment on above: Performed By: #### C BC, CMP, HCGQNT #### [facility] [address] [place] [address] MCH [Entitic mass] by Automa inocencia countOrdered By: Marychuy Jeronimoimore on 10-06-2023 MCH (RBC) [Entitic mass] 31.0 pg Normal 24.7-34.3 [facility] Comment on above: Performed By: #### C BC, CMP, HCGQNT #### [address] MCHC Auto (RBC) [Mass/Vol]Or dered By: Marychuy Bullimore on 10-06-2023 MCHC (RBC) [Mass/Vol] 34.4 g/dL 32.0-35.0 [facility] MCV [Entitic volume] by Auto mated countOrdered By: Marychuy Kyle on 10-06-2023 MCV (RBC) [Entitic vol] 90.1 fL Normal 80-100 [facility] Comment on above: Performed By: #### C BC, CMP, HCGQNT #### [address] Monocyte distribution width [Entitic volume] in Blood by AutomatedOrdered By: Marychuy Kyle on 10-06-2023 Monocyte distribution width Auto (Bld) [Entitic vol] 17.37 % 0.00-20.00 [facility] Neutrophils [#/volume] in Bl ood by Automated countOrdered By: Marychuy Kyle on 10-06-2023 Neutrophils (Bld) [#/Vol] 4.0 10*3/uL Normal 1.8-7.7 [facility] Comment on above: Performed By: #### C BC, CMP, HCGQNT #### [address] Nitrite Test strip Ql (U)Ord ered By: Marychuy Kyle on 10-06-2023 Nitrite Ql (U) Negative Negative [facility] No Panel InformationOrdered By: Marychuy Kyle on 10-06-2023 Estimated GFR (CKD-EPI) > 60.0 mL/Min [facility] Creatinine Clearance (Chem 180.48 [facility] Nucleated erythrocytes [Pres ence] in Blood by Automated countOrdered By: Marychuy Kyle on 10-06-2023 Nucleated RBC Auto Ql (Bld) 0.2 /100{WBC} 0-0.5 [facility] Platelet mean volume [Entiti c volume] in Blood by Automated countOrdered By: Marychuy Bullimore on 10-06-2023 Platelet mean volume (Bld) [Entitic vol] 7.5 fL Normal 6.3-10.7 [facility] Comment on above: Performed By: #### C BC, CMP, HCGQNT #### [facility] [address] [place] [address] [place] Platelets [#/volume] in Bloo d by Automated countOrdered By: Marychuy Kyle on 10-06-2023 Platelets (Bld) [#/Vol] 367 10*3/uL Normal 150-450 [facility] Comment on above: Performed By: #### C BC, CMP, HCGQNT #### [facility] [address] [place] [address] [place] Potassium [Moles/volume] in Serum or PlasmaOrdered By: Marychuy Kyle on 10-06-2023 Potassium [Moles/Vol] 4.1 mmol/L Normal 3.5-5.1 [facility] Comment on above: Performed By: #### C BC, CMP, HCGQNT #### [facility] [address] [place] [address] [place] Protein Auto test strip (U) [Mass/Vol]Ordered By: Marychuy Kyle on 10-06-2023 Protein (U) [Mass/Vol] Negative Negative [facility] Protein [Mass/volume] in Ser um or PlasmaOrdered By: Marychuy Phaniimore on 10-06-2023 Protein [Mass/Vol] 7.4 g/dL Normal 6.4-8.9 [facility] Comment on above: Performed By: #### C BC, CMP, HCGQNT #### [facility] [address] [place] [address] Serum globulin measurement b y calculation (mass/volume)Ordered By: Marychuy Anabella on 10-06-2023 Globulin (S) [Mass/Vol] 3.6 g/dL [facility] Comment on above: Performed By: #### C BC, CMP, HCGQNT #### [facility] [address] [place] [address] Serum or plasma albumin/glob ulin mass ratioOrdered By: Marychuy Bullimore on 10-06-2023 Albumin/Globulin [Mass ratio] 1.1 {ratio} [facility] Comment on above: Performed By: #### C BC, CMP, HCGQNT #### [address] Serum or plasma anion gap de terminationOrdered By: Marychuy Anabella on 10-06-2023 Anion gap [Moles/Vol] 12.6 mmol/L Normal 6.0-15.0 [facility] Comment on above: Performed By: #### C BC, CMP, HCGQNT #### [facility] [address] [place] [address] Sodium [Moles/volume] in Ser um or PlasmaOrdered By: Marychuy Anabella on 10-06-2023 Sodium [Moles/Vol] 139 mmol/L Normal 136-145 [facility] Comment on above: Performed By: #### C BC, CMP, HCGQNT #### [facility] [address] [place] [address] Specific gravity Auto test s trip (U) [Rel density]Ordered By: Marychuy Anabella on 10-06-2023 Specific gravity (U) [Rel density] 1.017 1.001-1.030 [facility] Urea nitrogen [Mass/volume] in Serum or PlasmaOrdered By: Marychuy Jeronimosariah on 10-06-2023 Urea nitrogen [Mass/Vol] 7 mg/dL Normal 7-25 [facility] Comment on above: Performed By: #### C BC, CMP, HCGQNT #### [facility] [address] [place] [address] [place] Urine clarity by refractomet ry automatedOrdered By: Marychuy Kyle on 10-06-2023 Clarity Refractometry automated (U) Clear Clear [facility] Urine glucose measurement by automated test strip (mass/volume)Ordered By: Marychuy Kyle on 10-06-2023 Glucose Auto test strip (U) [Mass/Vol] Normal mg/dL Normal [facility] Urine hemoglobin detection b y automated test stripOrdered By: Marychuy Kyle on 10-06-2023 Hemoglobin Auto test strip Ql (U) Negative Negative [facility] Urine leukocyte esterase det ection by automated test stripOrdered By: Marychuy Kyle on 10-06-2023 Leukocyte esterase Auto test strip Ql (U) 1+ Negative [facility] Urine pH measurement by auto mated test stripOrdered By: Marychuy Kyle on 10-06-2023 pH (U) 7.0 [pH] Normal 5.0-9.0 [facility] Comment on above: Order Comment: NEED MORE SPECIMEN Name Collection Type:: Clean-Voided Midstream Performed By: #### A DDONUAPLUS #### [address] Urobilinogen Auto test strip (U) [Mass/Vol]Ordered By: Marychuy Kyle on 10-06-2023 Urobilinogen (U) [Mass/Vol] Normal mg/dL Normal [facility] 09-11-2023 MERONN Telephone (MARTIN) -------- JALEESA ARRIETA ([id number]) 1990 F Date Time Provider Department 09/11/23 TONYA SENIOR During your visit today, we recorded the following information about you: Tonya Senior, FRED.PALLET RECTIFIER 09/11/2023 11:19 AM Signed Attempted to call [...] Date Reviewed: 08/20/2023 Reviewed by: Tonya Senior APRN.PALLET RECTIFIER - Fully Assessed Reason for Visit: Results [...] Status:Closed by TONYA SENIOR on 09/23/23 Normal [facility] NICOTINE AND METAB, URon URIN ANABASINE QUANT <5 Normal [facility] Comment on above: Order Comment: Speci men Type: URINE SPECIMEN Ordering Facility: [facility] Address: [address] [place] [address] Performed By: #### U NICOT #### [facility] CLIA [id number] [address] [place] [address] URIN COTININE QUANT <15 Normal [facility] Comment on above: Order Comment: Speci men Type: URINE SPECIMEN Ordering Facility: [facility] Address: [address] [place] [address] Performed By: #### U NICOT #### [facility] CLIA [id number] [address] [place] [address] URIN NICOTINE QUANT <15 Normal [facility] Comment on above: Order Comment: Speci men Type: URINE SPECIMEN Ordering Facility: [facility] Address: [address] [place] [address] Result Comment: INTE RPRETIVE INFORMATION: Nicotine and Metabolites, Urine, Quantitative Methodology: Quantitative Liquid Chromatography-Tandem Mass Spectrometry Positive cutoff: Nicotine 15 ng/mL Cotinine 15 ng/mL 2-TG-Udjdnhcm 50 ng/mL Anabasine 5 ng/mL For medical [...] developed and its performance characteristics determined by [facility] [employer]. It has not been cleared or approved by the [place] Food and Drug Administration. This test was performed in a CLIA certified laboratory and is intended for clinical purposes. Performed By: [facility] [address] [place] [address] Mmi Teacher: Rex Zuleta MD, PhD CLIA Number: [id number] Performed By: #### U NICOT #### [facility] CLIA [id number] [address] [place] [address] URINE 3 [place] COTININE <50 Normal [facility] Comment on above: Order Comment: Speci men Type: URINE SPECIMEN Ordering Facility: [facility] Address: [address] [place] [address] Performed By: #### U NICOT #### [id number] [address] [place] [address] TOXICOLOGY SCREEN, ROUTINE U RINEon 09-08-2023 Amphetamines Confirm (U) [Mass/Vol] Negative Normal Negative [facility] Comment on above: Order Comment: Speci men Type: URINE SPECIMEN Ordering Facility: [facility] Address: [address] [place] [address] Result Comment: Cuto ff threshold at 1000 ng/mL. Performed By: #### U TOX2 #### [facility] CLIA [id number] [address] [place] [address] [place] BARBITURATES, URINE Negative Normal Negative [facility] Comment on above: Order Comment: Speci men Type: URINE SPECIMEN Ordering Facility: [facility] Address: [address] [place] [address] Result Comment: Cuto ff threshold at 200 ng/mL. Performed By: #### U TOX2 #### [facility] CLIA [id number] [address] [place] [address] [place] BENZODIAZEPINES, UR Negative Normal Negative [facility] Comment on above: Order Comment: Speci men Type: URINE SPECIMEN Ordering Facility: [facility] Address: [address] [place] [address] Result Comment: Cuto ff threshold at 200 ng/mL. Performed By: #### U TOX2 #### [facility] CLIA [id number] [address] [place] [address] [place] Cannabinoids Screen Ql (U) Negative Normal Negative [facility] Comment on above: Order Comment: Speci men Type: URINE SPECIMEN Ordering Facility: [facility] Address: [address] [place] [address] Result Comment: Cuto ff threshold at 50 ng/mL. Performed By: #### U TOX2 #### [facility] CLIA [id number] [address] [place] [address] [place] Cocaine Ql (U) Negative Normal Negative [facility] Comment on above: Order Comment: Speci men Type: URINE SPECIMEN Ordering Facility: [facility] Address: [address] [place] [address] Result Comment: Cuto ff threshold at 300 ng/mL. Performed By: #### U TOX2 #### [facility] CLIA [id number] [address] [place] [address] [place] Ethanol (U) [Mass/Vol] <11 Normal <11 [facility] Comment on above: Order Comment: Speci men Type: URINE SPECIMEN Ordering Facility: [facility] Address: [address] [place] [address] Performed By: #### U TOX2 #### [facility] CLIA [id number] [address] [place] [address] [place] Opiates Screen Ql (U) Negative Normal Negative [facility] Comment on above: Order Comment: Speci men Type: URINE SPECIMEN Ordering Facility: [facility] Address: [address] [place] [address] Result Comment: Cuto ff threshold at 300 ng/mL. Performed By: #### U TOX2 #### [facility] CLIA [id number] [address] [place] [address] [place] oxyCODONE cutoff Screen (U) [Mass/Vol] Negative Normal Negative [facility] Comment on above: Order Comment: Speci men Type: URINE SPECIMEN Ordering Facility: [facility] Address: [address] [place] [address] Result Comment: Cuto ff threshold at 100 ng/mL. Performed By: #### U TOX2 #### [facility] CLIA [id number] [address] [place] [address] [place] Phencyclidine Ql (U) Negative Normal Negative [facility] Comment on above: Order Comment: Speci men Type: URINE SPECIMEN Ordering Facility: [facility] Address: [address] [place] [address] Result Comment: Cuto ff threshold at 25 ng/mL. Performed By: #### U TOX2 #### [facility] CLIA [id number] [address] [place] [address] [place] 25(OH)D3 SerPl-ncon 2023 25-hydroxyvitamin D3 [Mass/Vol] 11.9 ng/mL Low 31.0-80.0 [facility] Comment on above: Order Comment: Speci men Type: BLOOD SPECIMEN Ordering Facility: [facility] Address: [address] [place] [address] Performed By: #### 2 276-4, 2131-9, 2283-8 #### [facility] CLIA [id number] [address] [place] [address] [place] CBC W Auto Differential pane l (Bld)on 09-05-2023 Basophils (Bld) [#/Vol] 10*3/uL Normal <0.11 [facility] Comment on above: Order Comment: Speci men Type: BLOOD SPECIMEN Ordering Facility: [facility] Address: [address] [place] [address] Performed By: #### 2 276-4, 2131-9, 2283-8 #### [facility] CLIA [id number] [address] [place] [address] [place] Basophils/100 WBC (Bld) 0.3 % Normal [facility] Comment on above: Order Comment: Speci men Type: BLOOD SPECIMEN Ordering Facility: [facility] Address: [address] [place] [address] Performed By: #### 2 276-4, 2132-01, 2283-12 #### [facility] CLIA [id number] [address] [place] [address] [place] Differential cell count method Nom (Bld) Auto Normal [facility] Comment on above: Order Comment: Speci men Type: BLOOD SPECIMEN Ordering Facility: [facility] Address: [address] [place] [address] Performed By: #### 2 276-4, 2132-01, 2283-12 #### [facility] CLIA [id number] [address] [place] [address] [place] Eosinophils (Bld) [#/Vol] 0.09 10*3/uL Normal <0.46 [facility] Comment on above: Order Comment: Speci men Type: BLOOD SPECIMEN Ordering Facility: [facility] Address: [address] [place] [address] Performed By: #### 2 276-4, 2132-01, 2283-12 #### [facility] CLIA [id number] [address] [place] [address] [place] Eosinophils/100 WBC (Bld) 1.3 % Normal [facility] Comment on above: Order Comment: Speci men Type: BLOOD SPECIMEN Ordering Facility: [facility] Address: [address] [place] [address] Performed By: #### 2 276-4, 2132-01, 2283-12 #### [facility] CLIA [id number] [address] [place] [address] [place] Erythrocyte distribution width (RBC) [Ratio] 12.6 % Normal 11.5-15.0 [facility] Comment on above: Order Comment: Speci men Type: BLOOD SPECIMEN Ordering Facility: [facility] Address: [address] [place] [address] Performed By: #### 2 276-4, 2132-01, 2283-12 #### [facility] CLIA [id number] [address] [place], [place] [address] [place] Hematocrit (Bld) [Volume fraction] 38.0 % Normal 36.0-46.0 [facility] Comment on above: Order Comment: Speci men Type: BLOOD SPECIMEN Ordering Facility: [facility] Address: [address] [place] [address] Performed By: #### 2 276-4, 2132-01, 2283-12 #### [facility] CLIA [id number] [address] [place] [address] [place] Hemoglobin (Bld) [Mass/Vol] 12.8 g/dL Normal 11.5-15.5 [facility] Comment on above: Order Comment: Speci men Type: BLOOD SPECIMEN Ordering Facility: [facility] Address: [address] [place] [address] Performed By: #### 2 276-4, 2132-01, 2283-12 #### [facility] CLIA [id number] [address] [place] [address] [place] Immature granulocytes (Bld) [#/Vol] 10*3/uL Normal <0.10 [facility] Comment on above: Order Comment: Speci men Type: BLOOD SPECIMEN Ordering Facility: [facility] Address: [address] [place] [address] Performed By: #### 2 276-4, 2132-01, 2283-12 #### [facility] CLIA [id number] [address] [place] [address] [place] Immature granulocytes/100 WBC (Bld) 0.1 % Normal [facility] Comment on above: Order Comment: Speci men Type: BLOOD SPECIMEN Ordering Facility: [facility] Address: [address] [place] [address] Performed By: #### 2 276-4, 2132-01, 2283-12 #### [facility] CLIA [id number] [address] [place] [address] [place] Lymphocytes (Bld) [#/Vol] 3.49 10*3/uL Normal 1.00-4.00 [facility] Comment on above: Order Comment: Speci men Type: BLOOD SPECIMEN Ordering Facility: [facility] Address: [address] [place] [address] Performed By: #### 2 276-4, 2132-01, 2283-12 #### [facility] CLIA [id number] [address] [place] [address] [place] Lymphocytes/100 WBC (Bld) 48.6 % Normal [facility] Comment on above: Order Comment: Speci men Type: BLOOD SPECIMEN Ordering Facility: [facility] Address: [address] [place] [address] Performed By: #### 2 276-4, 2132-01, 2283-12 #### [facility] CLIA [id number] [address] [place] [address] [place] MCH (RBC) [Entitic mass] 30.0 pg Normal 26.0-34.0 [facility] Comment on above: Order Comment: Speci men Type: BLOOD SPECIMEN Ordering Facility: [facility] Address: [address] [place] [address] Performed By: #### 2 276-4, 2132-01, 2283-12 #### [facility] CLIA [id number] [address] [place] [address] [place] MCHC (RBC) [Mass/Vol] 33.7 g/dL Normal 30.5-36.0 [facility] Comment on above: Order Comment: Speci men Type: BLOOD SPECIMEN Ordering Facility: [facility] Address: [address] [place] [address] Performed By: #### 2 276-4, 2132-01, 2283-12 #### [facility] CLIA [id number] [address] [place] [address] [place] MCV (RBC) [Entitic vol] 89.2 fL Normal 80.0-100.0 [facility] Comment on above: Order Comment: Speci men Type: BLOOD SPECIMEN Ordering Facility: [facility] Address: [address] [place] [address] Performed By: #### 2 276-4, 2132-01, 2283-12 #### [facility] CLIA [id number] [address] [place] [address] [place] Monocytes (Bld) [#/Vol] 0.48 10*3/uL Normal <0.87 [facility] Comment on above: Order Comment: Speci men Type: BLOOD SPECIMEN Ordering Facility: [facility] Address: [address] [place] [address] Performed By: #### 2 276-4, 2132-01, 2283-12 #### [facility] CLIA [id number] [address] [place] [address] [place] Monocytes/100 WBC (Bld) 6.7 % Normal [facility] Comment on above: Order Comment: Speci men Type: BLOOD SPECIMEN Ordering Facility: [facility] Address: [address] [place] [address] Performed By: #### 2 276-4, 2132-01, 2283-12 #### [facility] CLIA [id number] [address] [place] [address] [place] Neutrophils (Bld) [#/Vol] 3.09 10*3/uL Normal 1.45-7.50 [facility] Comment on above: Order Comment: Speci men Type: BLOOD SPECIMEN Ordering Facility: [facility] Address: [address] [place] [address] Performed By: #### 2 276-4, 2132-01, 2283-12 #### [facility] CLIA [id number] [address] [place] [address] [place] Neutrophils/100 WBC (Bld) 43.0 % Normal [facility] Comment on above: Order Comment: Speci men Type: BLOOD SPECIMEN Ordering Facility: [facility] Address: [address] [place] [address] Performed By: #### 2 276-4, 2132-01, 2283-12 #### [facility] CLIA [id number] [address] [place] [address] [place] Nucleated RBC (Bld) [#/Vol] 10*3/uL Normal <0.01 [facility] Comment on above: Order Comment: Speci men Type: BLOOD SPECIMEN Ordering Facility: [facility] Address: [address] [place] [address] Performed By: #### 2 276-4, 2132-01, 2283-12 #### [facility] CLIA [id number] [address] [place] [address] [place] Nucleated RBC/100 WBC (Bld) [Ratio] 0.0 /100 WBC Normal [facility] Comment on above: Order Comment: Speci men Type: BLOOD SPECIMEN Ordering Facility: [facility] Address: [address] [place] [address] Performed By: #### 2 276-4, 2132-01, 2283-12 #### [facility] CLIA [id number] [address] [place] [address] [place] Platelet mean volume (Bld) [Entitic vol] 9.2 fL Normal 9.0-12.7 [facility] Comment on above: Order Comment: Speci men Type: BLOOD SPECIMEN Ordering Facility: [facility] Address: [address] [place] [address] Performed By: #### 2 276-4, 2132-01, 2283-12 #### [facility] CLIA [id number] [address] [place] [address] [place] Platelets (Bld) [#/Vol] 361 10*3/uL Normal 150-400 [facility] Comment on above: Order Comment: Speci men Type: BLOOD SPECIMEN Ordering Facility: [facility] Address: [address] [place] [address] Performed By: #### 2 276-4, 2132-01, 2283-12 #### [facility] CLIA [id number] [address] [place] [address] [place] RBC (Bld) [#/Vol] 4.26 10*6/uL Normal 3.90-5.20 [facility] Comment on above: Order Comment: Speci men Type: BLOOD SPECIMEN Ordering Facility: [facility] Address: [address] [place] [address] Performed By: #### 2 276-4, 2132-01, 2283-12 #### [facility] CLIA [id number] [address] [place] [address] [place] WBC (Bld) [#/Vol] 7.18 10*3/uL Normal 3.70-11.00 [facility] Comment on above: Order Comment: Speci men Type: BLOOD SPECIMEN Ordering Facility: [facility] Address: [address] [place] [address] Performed By: #### 2 276-4, 2132-01, 2283-12 #### [facility] CLIA [id number] [address] [place] [address] [place] Comprehensive metabolic 2000 panelon 09-05-2023 Albumin [Mass/Vol] 4.0 g/dL Normal 3.9-4.[address] [facility] Comment on above: Order Comment: Speci men Type: BLOOD SPECIMEN Ordering Facility: [facility] Address: [address] [place] [address] Performed By: #### 2 4323-8 #### [facility] CLIA [id number] [address] [place] [address] ALP [Catalytic activity/Vol] 91 U/L Normal 34-123 [facility] Comment on above: Order Comment: Speci men Type: BLOOD SPECIMEN Ordering Facility: [facility] Address: [address] [place], [place] [address] Performed By: #### 2 4323-8 #### [facility] CLIA [id number] [address] [place] [address] ALT [Catalytic activity/Vol] 15 U/L Normal 7-38 [facility] Comment on above: Order Comment: Speci men Type: BLOOD SPECIMEN Ordering Facility: [facility] Address: [address] [place] [address] Performed By: #### 2 4323-8 #### [facility] CLIA [id number] [address] [place] [address] Anion gap [Moles/Vol] 10 mmol/L Normal 9-18 [facility] Comment on above: Order Comment: Speci men Type: BLOOD SPECIMEN Ordering Facility: [facility] Address: [address] [place] [address] Performed By: #### 2 4323-8 #### [facility] CLIA [id number] [address] [place] [address] AST [Catalytic activity/Vol] 13 U/L Normal 13-35 [facility] Comment on above: Order Comment: Speci men Type: BLOOD SPECIMEN Ordering Facility: [facility] Address: [address] [place] [address] Performed By: #### 2 4323-8 #### [facility] CLIA [id number] [address] [place] [address] Bilirubin [Mass/Vol] 0.3 mg/dL Normal 0.2-1.3 [facility] Comment on above: Order Comment: Speci men Type: BLOOD SPECIMEN Ordering Facility: [facility] Address: [address] [place], [place] [address] Performed By: #### 2 4323-8 #### [facility] CLIA [id number] [address] [place] [address] Calcium [Mass/Vol] 9.5 mg/dL Normal 8.5-10.[address] [facility] Comment on above: Order Comment: Speci men Type: BLOOD SPECIMEN Ordering Facility: [facility] Address: [address] [place], [place] [address] Performed By: #### 2 4323-8 #### [facility] CLIA [id number] [address] [place] [address] Chloride [Moles/Vol] 106 mmol/L High 97-105 [facility] Comment on above: Order Comment: Speci men Type: BLOOD SPECIMEN Ordering Facility: [facility] Address: [address] [place] [address] Performed By: #### 2 4323-8 #### [facility] CLIA [id number] [address] [place] [address] CO2 [Moles/Vol] 26 mmol/L Normal 22-30 [facility] Comment on above: Order Comment: Speci men Type: BLOOD SPECIMEN Ordering Facility: [facility] Address: [address] [place] [address] Performed By: #### 2 4323-8 #### [facility] CLIA [id number] [address] [place] [address] Creatinine [Mass/Vol] 0.75 mg/dL Normal 0.58-0.96 [facility] Comment on above: Order Comment: Speci men Type: BLOOD SPECIMEN Ordering Facility: [facility] Address: [address] [place] [address] Performed By: #### 2 4323-8 #### [facility] CLIA [id number] [address] [place] [address] Creatinine and Glomerular filtration rate.predicted panel (S/P/Bld) 109 mL/min/1.73m??? Normal >=60 [facility] Comment on above: Order Comment: Laury bradshaw Type: BLOOD SPECIMEN Ordering Facility: [facility] Address: [address] [id number] Result Comment: Stephani mated Glomerular Filtration Rate [...] GFR. Performed By: #### 2 4323-8 #### [facility] CLIA [id number] [address] [place] [address] Glucose [Mass/Vol] 104 mg/dL High 74-[address] [facility] Comment on above: Order Comment: Laury bradshaw Type: BLOOD SPECIMEN Ordering Facility: [facility] Address: [address] [place] [address] Result Comment: The [place] Diabetes Association (ADA) provides guidance for cutoff [...] Standards of Medical Care in Diabetes 2016, [place] Diabetes Association. Diabetes Care. 2016.39(Suppl 1). Performed By: #### 2 4323-8 #### [facility] CLIA [id number] [address] [place] [address] Potassium [Moles/Vol] 4.2 mmol/L Normal 3.7-5.1 [facility] Comment on above: Order Comment: Laury bradshaw Type: BLOOD SPECIMEN Ordering Facility[facility] Address: [address] [place] [phone] Performed By: #### 2 4323-8 #### [facility] CLIA [id number] [address] [place] [address] Protein [Mass/Vol] 7.4 g/dL Normal 6.3-8.[address] [facility] Comment on above: Order Comment: Speci men Type: BLOOD SPECIMEN Ordering Facility: [facility] Address: [address] [place] [address] Performed By: #### 2 4323-8 #### [facility] CLIA [id number] [address] [place] [address] Sodium [Moles/Vol] 142 mmol/L Normal 136-[address] [facility] Comment on above: Order Comment: Speci men Type: BLOOD SPECIMEN Ordering Facility: [facility] Address: [address] [place] [address] Performed By: #### 2 4323-8 #### [facility] CLIA [id number] [address] [place] [address] Urea nitrogen [Mass/Vol] 12 mg/dL Normal 7-21 [facility] Comment on above: Order Comment: Speci men Type: BLOOD SPECIMEN Ordering Facility: [facility] Address: [address] [place] [address] Performed By: #### 2 4323-8 #### [facility] CLIA [id number] [address] [place] [address] Ferritin SerPl-mCncon 2023 Ferritin [Mass/Vol] 86.7 ng/mL Normal 14.7-205.1 [facility] Comment on above: Order Comment: Speci men Type: BLOOD SPECIMEN Ordering Facility: [facility] Address: [address] [place] [address] Performed By: #### 2 276-4, 2132-9, 2284-8 #### [facility] CLIA [id number] [address] [address] [place] [address] [place] Folate SerPl-mCncon 09-05-19 Folate [Mass/Vol] 12.0 ng/mL Normal >4.7 [facility] Comment on above: Order Comment: Laury bradshaw Type: BLOOD SPECIMEN Ordering Facility: [facility] Address: [address] [place] [address] Performed By: #### 2 276-4, 2131-9, 8 #### [facility] CLIA [id number] [address] [place] [address] [place] H. pylori IgG IA Qlon 2023 H. PYLORI IGG, QUAL Negative Normal Negative [facility] Comment on above: Order Comment: Laury bradshaw Type: BLOOD SPECIMEN Ordering Facility: [facility] Address: [address] [place] [address] Result Comment: Cash ot exclude H. pylori infection if the specimen collected 3-4 weeks after onset of symptoms. Performed By: #### 2 276-4, 9, 2283-12 #### [facility] CLIA [id number] [address] [place] [address] [place] HbA1c (Bld)on 09-05-2023 Average glucose Estimated from glycated hemoglobin (Bld) [Mass/Vol] 108 mg/dL Normal [facility] Comment on above: Order Comment: Laury bradshaw Type: BLOOD SPECIMEN Ordering Facility: [facility] Address: [address] [place] [address] Result Comment: eAG: (Estimated average glucose) is a calculated value from HgbA1c and is labor relations representative of the average blood glucose level in the last 2-3 month period. Performed By: #### 5 5454-3 #### [facility] CLIA [id number] [address] [place] [address] [place] HbA1c (Bld) [Mass fraction] 5.4 % Normal 4.3-5.6 [facility] Comment on above: Order Comment: Laury bradshaw Type: BLOOD SPECIMEN Ordering Facility: [facility] Address: [address] [place] [address] Result Comment: Amer [place] Diabetes Association guidelines indicate that patients with HgbA1c in the range 5.7-6.4% are at increased risk for development of diabetes, and intervention by lifestyle modification may be beneficial. HgbA1c greater or equal to 6.5% is considered diagnostic of diabetes. Performed By: #### 5 5454-3 #### [facility] CLIA [id number] [address] [place] [address] [place] Iron and Iron binding capaci ty panelon 09-05-2023 Iron [Mass/Vol] 94 ug/dL Normal 41-186 [facility] Comment on above: Order Comment: Speci men Type: BLOOD SPECIMEN Ordering Facility: [facility] Address: [address] [place] [address] Performed By: #### 5 0190-8, 3016-3, 73098-9 #### [facility] CLIA [id number] [address] [place] [address] [place] #### 04199-1 #### [facility] CLIA [id number] [address] [place] [address] [place] [facility] CLIA [id number] [address] [place] [address] Iron binding capacity [Mass/Vol] 310 ug/dL Normal 232-386 [facility] Comment on above: Order Comment: Speci men Type: BLOOD SPECIMEN Ordering Facility: [facility] Address: [address] [place] [address] Performed By: #### 5 0190-8, 6-3, 53558-3 #### [facility] CLIA [id number] [address] [place] [address] [place] #### 16079-2 #### [facility] CLIA [id number] [address] [place], [place] [address] [place] [facility] CLIA [id number] [address] [place] [address] Iron/TIBC [Molar ratio] 30.3 % Normal 15.0-57.0 [facility] Comment on above: Order Comment: Speci men Type: BLOOD SPECIMEN Ordering Facility: [facility] Address: [address] [place] [address] Performed By: #### 5 0190-8, 3016-3, 96769-3 #### [facility] CLIA [id number] [address] [place] [address] [place] #### 06547-8 #### [facility] CLIA [id number] [address] [place] [address] [place] [facility] CLIA [id number] [address] [place] [address] Lipid 1996 panelon 4 Cholesterol [Mass/Vol] 179 mg/dL Normal <200 [facility] Comment on above: Order Comment: Speci men Type: BLOOD SPECIMEN Ordering Facility: [facility] Address: [address] [place] [address] Result Comment: <200 mg/dL, Desirable 200-239 mg/dL, Borderline high >239 mg/dL, High Performed By: #### 2 276-4, 2132-01, 2283-12 #### [facility] CLIA [id number] [address] [place] [address] [place] Cholesterol in HDL [Mass/Vol] 45 mg/dL Normal >39 [facility] Comment on above: Order Comment: Speci men Type: BLOOD SPECIMEN Ordering Facility: [facility] Address: [address] [place] [address] Result Comment: 40-5 9 mg/dL, Acceptable >59 mg/dL, High: Negative risk factor for coronary heart disease <40 mg/dL, Low: Positive risk factor for coronary heart disease Performed By: #### 2 276-4, 2132-01, 2283-12 #### [facility] CLIA [id number] [address] [place] [address] [place] Cholesterol in LDL [Mass/Vol] 119 mg/dL High <100 [facility] Comment on above: Order Comment: Laury bradshaw Type: BLOOD SPECIMEN Ordering Facility: [facility] Address: [address] [place] [address] Result Comment: <100 mg/dL, Optimal 100-129 mg/dL, Near optimal/above optimal 130-159 mg/dL, Borderline high 160-189 mg/dL, High >189 mg/dL, Very high Secondary prevention optimal LDL Cholesterol levels are recommended to be < 70 mg/dL Performed By: #### 2 276-4, 2132-01, 2283-12 #### [facility] CLIA [id number] [address] [place] [address] [place] Cholesterol in LDL/Cholesterol in HDL [Mass ratio] 2.64 {ratio} High <2.54 [facility] Comment on above: Order Comment: Laury bradshaw Type: BLOOD SPECIMEN Ordering Facility: [facility] Address: [address] [place] [address] Result Comment: Belinda degroot: 1. National Cholesterol Education Program ATP III Guideline At-A-Glance Quick Desk Reference: National Heart, Lung, and Blood [place]. National Institutes of Health. 2001: NIH Publication No. 01-3305. 2. An International Atherosclerosis Society position paper: global recommendations for the management of dyslipidemia: executive summary, Atherosclerosis. 2014: 232(2):410-413. Performed By: #### 2 276-4, 2132-01, 2283-12 #### [facility] CLIA [id number] [address] [place] [address] [place] Cholesterol in VLDL [Mass/Vol] 15 mg/dL Normal <30 [facility] Comment on above: Order Comment: Laury bradshaw Type: BLOOD SPECIMEN Ordering Facility: [facility] Address: [address] [place] [address] Performed By: #### 2 276-4, 2132-01, 2283-12 #### [facility] CLIA [id number] [address] [place] [address] [place] Cholesterol non HDL [Mass/Vol] 134 mg/dL High <130 [facility] Comment on above: Order Comment: Speci men Type: BLOOD SPECIMEN Ordering Facility: [facility] Address: [address] [place] [address] Result Comment: <130 mg/dL, Optimal 130-159 mg/dL, Near optimal/above optimal 160-189 mg/dL, Borderline high 190-219 mg/dL, High >219 mg/dL, Very high Secondary prevention optimal non HDL Cholesterol levels are recommended to be <100 mg/dL Performed By: #### 2 276-4, 2132-01, 2283-12 #### [facility] CLIA [id number] [address] [place] [address] [place] Cholesterol.total/Cho lesterol in HDL [Mass ratio] 3.98 {ratio} Normal <5.10 [facility] Comment on above: Order Comment: Speci men Type: BLOOD SPECIMEN Ordering Facility: [facility] Address: [address] [place] [address] Performed By: #### 2 276-4, 2132-01, 2283-12 #### [facility] CLIA [id number] [address] [place] [address] [place] FASTING TIME 12 hrs Normal [facility] Comment on above: Order Comment: Speci men Type: BLOOD SPECIMEN Ordering Facility: [facility] Address: [address] [place] [address] Performed By: #### 2 276-4, 2132-01, 2283-12 #### [facility] CLIA [id number] [address] [place] [address] [place] Triglyceride [Mass/Vol] 74 mg/dL Normal <150 [facility] Comment on above: Order Comment: Speci men Type: BLOOD SPECIMEN Ordering Facility: [facility] Address: [address] [place] [address] Result Comment: <150 mg/dL, Normal 150-199 mg/dL, Borderline high 200-499 mg/dL, High >499 mg/dL, Very high Performed By: #### 2 276-4, 9, 2283-12 #### [facility] CLIA [id number] [address] [place] [address] [place] NT-proBNP SerPl-mCncon 09-04 Natriuretic peptide.B prohormone N-Terminal [Mass/Vol] 48 pg/mL Normal <125 [facility] Comment on above: Order Comment: Speci men Type: BLOOD SPECIMEN Ordering Facility: [facility] Address: [address] [place] [address] Performed By: #### 2 276-4, 9, 2283-12 #### [facility] CLIA [id number] [address] [place] [address] [place] TSH SerPl-aCncon 09-05-2023 TSH Qn 6.440 m[IU]/L High 0.270-4.200 [facility] Comment on above: Order Comment: Speci men Type: BLOOD SPECIMEN Ordering Facility: [facility] Address: [address] [place] [address] Result Comment: If t he patient is , TSH reference range varies by gestational period: First Trimester (weeks 9-12): 0.180-2.990 mIU/L Second Trimester: 0.110-3.980 mIU/L Third Trimester: 0.480-4.710 mIU/L Seth Crews et al. A Practical Approach for the Verifications and Determination of Site- and Trimester-Specific Reference Intervals for Thyroid Function tests in . Thyroid, 2019:29:3:412-420. Zhang Ybarra, et al. 2017 Guidelines of the [place] Thyroid Association for the Diagnosis and Management of Thyroid Disease during and the . Thyroid, 2017:27:3:315-389. Performed By: #### 2 276-4, 9, 2283-12 #### [facility] CLIA [id number] [address] [place] [address] [place] VITAMIN B1 (THIAMINE), WHOLE BLOODon 09-05-2023 Thiamine (Bld) [Moles/Vol] 179.2 nmol/L Normal 84.3-213.3 [facility] Comment on above: Order Comment: Laury bradshaw Type: BLOOD SPECIMEN Ordering Facility: [facility] Address: [address] [place] [address] Result Comment: This assay measures the concentration of thiamine diphosphate (TDP), the primary active form of vitamin B1. Approximately 90 percent of vitamin B1 present in whole blood is TDP. Thiamine and thiamine monophosphate, which comprise the remaining 10 percent, are not measured. This test was developed and its performance characteristics determined by [facility]'s [facility] [place] ([facility]). It has not been cleared or approved by the FDA. [facility] is regulated under CLIA as qualified to perform high-complexity testing. This test is used for clinical purposes. It should not be regarded as investigational or for research. Performed By: #### B 1WB #### [facility] CLIA [id number] [address] [place] [address] [place] Vit B12 [facility] 09-04- 024 Cobalamin (Vitamin B12) [Mass/Vol] 612 pg/mL Normal 232-1245 [facility] Comment on above: Order Comment: Laury bradshaw Type: BLOOD SPECIMEN Ordering Facility[facility] Address: [address] [place] [address] Performed By: #### 2 276-4, 2132-9, 2284-8 #### [facility] CLIA [id number] [address] [place] [address] [place] Glucose - FINGER STICKon Glucose [Mass/Vol] 5.4 mg/dL [employer] Other PAP ACOG PANEL 2: 30 to 65on 06-10-2022 . . Normal [facility] Comment on above: Result Comment: Perf ormed at: WB Performed By: #### 4 [id number] #### [facility] [address] [place] [address] Dr. Sachin Coates Age Gdln ACOG Testing 30-65 Normal [facility] Comment on above: Performed By: #### 4 [id number] #### [facility] [address] [place] [address] Dr. Sachin Coates DIAGNOSIS: Comment Normal [facility] Comment on above: Result Comment: NEGA TIVE FOR INTRAEPITHELIAL LESION OR MALIGNANCY. CELLULAR CHANGES ASSOCIATED WITH INFLAMMATION ARE PRESENT. THIS SPECIMEN WAS RESCREENED PART OF OUR [employer]ALES SENIOR SPECIALIST PROGRAM. Performed at: WB Performed By: #### 4 [id number] #### [facility] [address] [place] [address] Dr. Sachin Coates HPV Aptima Negative Normal Negative [facility] Comment on above: Result Comment: This nucleic acid amplification test detects fourteen high-risk HPV types (16,18,31,33,35,39,45,51,52,56,58,59,66,68) without differentiation. Performed at: =G Performed By: #### 4 [id number] #### [facility] [address] [place] [address] Dr. Sachin Coates HPV Genotype Reflex Comment Normal [facility] Comment on above: Result Comment: Crit eria not met, HPV Genotype not performed. Performed at: WB Performed By: #### 4 [id number] #### [facility] [address] [place] [address] Dr. Sachin Coates Methodology: Comment Normal [facility] Comment on above: Result Comment: This liquid based ThinPrep(R) pap test was screened with the use of an image guided system. Performed at: WB Performed By: #### 4 [id number] #### [facility] [address] [place] [address] Dr. Sachin Coates Note: Comment Normal [facility] Comment on above: Result Comment: The Pap smear is a screening test designed to aid in the detection of premalignant and malignant conditions of the uterine cervix. It is not a diagnostic procedure and should not be used as the sole means of detecting cervical cancer. Both false-positive and false-negative reports do occur. . Performed at: WB Performed By: #### 4 [id number] #### [facility] [address] [place] [address] Dr. Sachin Coates Performed by: Comment Normal [facility] Comment on above: Result Comment: Peyton Beverly, Hand Edge Bander (ASCP) Performed at: WB Performed By: #### 4 [id number] #### [facility] [address] [place], [place] [address] Dr. Sachin Coates QC reviewed by: Comment Normal [facility] Comment on above: Result Comment: Cielo Cochran, Supervisory Hand Edge Bander (ASCP) Performed at: WB Performed By: #### 4 [id number] #### [facility] [address] [place], [place] [address] Dr. Sachin Coates Specimen adequacy: Comment Normal [facility] Comment on above: Result Comment: Sati sfactory for evaluation. Endocervical and/or squamous metaplastic cells (endocervical component) are present. Performed at: WB Performed By: #### 4 [id number] #### [facility] [address] [place] [address] [address] Sachin Coates COVID-19 SOFIAOrdered By: Dario To on 12-02-2021 SARS-CoV+SARS-CoV-2 (COVID-19) Ag IA.rapid Ql (Resp) Negative Negative [facility] Comment on above: This is a duplicate Zuleyma SARS Antigen (PAMELLA) result to be used for statistical tracking purpose only. No Panel InformationOrdered By: Ck To on 12-02-2021 SARS Antigen (LFIA) [facility] Chart Updateon 08-08-2020 Chart Update Chart [...] Aug 08 2020 10:18AM EST (Author) Normal [employer] DESKTOP SUPPORT SPECIALIST - Procedure Visiton 0 07-10-2020 DESKTOP SUPPORT SPECIALIST - Procedure Visit Chief Complaint IUI Active [...] [employer] ESTRADIOLon 07-08-2020 ESTRADIOL 186 pg/mL Normal [facility] Comment on above: Result Comment: Estr adiol measurement is performed using the [employer] POI Access Sensitive Estradiol Immunoassay. Estradiol testing is performed using a different test methodology at [facility] than other [facility]. Direct result comparison should only be made within the same method. REF VALUES EARLY FOLLICULAR 22-115 MID FOLLICULAR 25-115 OVULATORY PEAK 32-517 MID LUTEAL 37-246 POSTMENOPAUSE <15- 25 MALE <15- 32 Performed By: #### G [facility] #### [facility] [address] [place] [address] Estradiol, Serumon 1 E2 [Mass/Vol] 186 pg/mL MG-OBGYN-Ri an 310 IVF Work Phone: Comment on above: Estradiol measuremen t is performed using the [employer] POI Access Sensitive Estradiol Immunoassay. Estradiol testing is performed using a different test methodology at [facility] than other [facility]. Direct result comparison should only be made within the same method.REF VALUESEARLY FOLLICULAR 22-115MID FOLLICULAR 25-115OVULATORY PEAK 32-517MID LUTEAL 37-246POSTMENOPAUSE <15- 25MALE <15- 32 LUTEINIZING HORMONEon 2020 LUTEINIZING HORMONE 9.5 IU/L Normal [facility] Comment on above: Result Comment: Lute inizing Hormone [LH] is performed using the [employer] POI Access Immunoassay. LH testing is performed using a different test methodology at [facility] than other [facility]. Direct result comparison should only be made within the same method. REF VALUES FOLLICULAR PHASE 1.5-10.0 MID-CYCLE 13.0-72.0 LUTEAL PHASE 0.5-13.0 MENOPAUSE 15.0-65.0 PREPUBERTY 0- 3.0 CHILDREN 0- 6.0 ADULT MALE 1.0- 9.0 Performed By: #### G [facility] #### [facility] [address] [place] [address] Luteinizing Hormone, Serumon 07-08-2020 Lutropin Qn 9.5 {IU/L} HV-DCQWW-Ptja an 310 IVF Work Phone: Comment on above: Luteinizing Hormone [LH] is performed using the [employer] Access Immunoassay. LH testing is performed using a different test methodology at [facility] than other [facility]. Direct result comparison should only be made within the same method.REF VALUESFOLLICULAR PHASE 1.5-10.0MID-CYCLE 13.0-72.0LUTEAL PHASE 0.5-13.0MENOPAUSE 15.0-65.0PREPUBERTY 0- 3.0CHILDREN 0- 6.0ADULT MALE 1.0- 9.0 TYPE + SCREENon 07-06-2020 ABO TYPE A Normal [facility] Comment on above: Performed By: #### T +S #### [facility] [address] [place] [address] RH TYPE Positive Normal [facility] Comment on above: Performed By: #### T +S #### [facility] [address] [place] [address] ESTRADIOLon 07-05-2020 ESTRADIOL 58 pg/mL Normal [facility] Comment on above: Result Comment: Estr adiol measurement is performed using the [employer] POI Access Sensitive Estradiol Immunoassay. Estradiol testing is performed using a different test methodology at [facility] than other [facility]. Direct result comparison should only be made within the same method. REF VALUES EARLY FOLLICULAR 22-115 MID FOLLICULAR 25-115 OVULATORY PEAK 32-517 MID LUTEAL 37-246 POSTMENOPAUSE <15- 25 MALE <15- 32 Performed By: #### G [facility] #### [facility] [address] [place] [address] Estradiol, Serumon E2 [Mass/Vol] 58 pg/mL MG-OBGYN-Ri sm an 310 IVF Work Phone: Comment on above: Estradiol measuremen t is performed using the [employer] POI Access Sensitive Estradiol Immunoassay. Estradiol testing is performed using a different test methodology at [facility] than other [facility]. Direct result comparison should only be made within the same method.REF VALUESEARLY FOLLICULAR 22-115MID FOLLICULAR 25-115OVULATORY PEAK 32-517MID LUTEAL 37-246POSTMENOPAUSE <15- 25MALE <15- 32 Hematologyon 07-05-2020 ABO group Nom (Bld) A MG-FIELD CROP FARMER-Rism an 310 IVF Work Phone: Blood group antibody screen Ql Negative DB-XILEP-Vovb an 310 IVF Work Phone: Rh immune globulin screen (Bld) [Interp] Positive MG-OBGYN-R ism an 310 IVF Work Phone: LUTEINIZING HORMONEon 2020 LUTEINIZING HORMONE 9.2 IU/L Normal [facility] Comment on above: Result Comment: Lute inizing Hormone [LH] is performed using the [employer] POI Access Immunoassay. LH testing is performed using a different test methodology at [facility] than other [facility]. Direct result comparison should only be made within the same method. REF VALUES FOLLICULAR PHASE 1.5-10.0 MID-CYCLE 13.0-72.0 LUTEAL PHASE 0.5-13.0 MENOPAUSE 15.0-65.0 PREPUBERTY 0- 3.0 CHILDREN 0- 6.0 ADULT MALE 1.0- 9.0 Performed By: #### L #### [facility] [address] [place] [address] Luteinizing Hormone, Serumon 07-05-2020 Lutropin Qn 9.2 {IU/L} HM-NGPRL-Pkae an 310 IVF Work Phone: Comment on above: Luteinizing Hormone [LH] is performed using the [employer] POI Access Immunoassay. LH testing is performed using a different test methodology at [facility] than other [facility]. Direct result comparison should only be made within the same method.REF VALUESFOLLICULAR PHASE 1.5-10.0MID-CYCLE 13.0-72.0LUTEAL PHASE 0.5-13.0MENOPAUSE 15.0-65.0PREPUBERTY 0- 3.0CHILDREN 0- 6.0ADULT MALE 1.0- 9.0 DESKTOP SUPPORT SPECIALIST - Office Visiton DESKTOP SUPPORT SPECIALIST - Office Visit Diagnoses/Problems Assessed Morbid obesity [...] MD [facility] [phone] [place] [phone] [place] 1 Amended By: Bayron Mccarty; Jun 19 [...] MD [facility] [phone] [place] [phone] [place] Appointment Duration:. 25 minutes; greater than half of the time was spent on counseling. 1 Amended By: Bayron Mccarty; Jun 19 2020 10:16 AM ESTChief Complaint follow up History of Present Drijcay2606/19/2020 9:30AM JALEESA ARRIETA , 30 year is contacted for an (audio-visual, or audio only) Telehealth visit. Today's visit was provided through telemedicine conferencing: Using [employer] platform. Consent: The concept of telemedicine? has [...] is a telehealth appointment Results/Data HCG, Beta Plnihdmjkgun52Rjj9836 11:58AMBayron Mccarty Test NameResultFlagReference HCG, Beta Quantitative<2 [...] performed using a different test methodology at [facility] than other [facility]. Direct result comparison should only be made within the same method. REF VALUES NON FEMALE <5 MALES <5 Progesterone, Yined15Kfv1918 11:58AMBayron Mccarty Test NameResultFlagReference Progesterone, Serum10.5 ng/mL REF VALUES MALE <0.3- 1.2 FOLLICULAR PHASE <0.3- 1.4 LUTEAL PHASE 3.3-25.6 MID-LUTEAL PHASE 4.4-28.0 POSTMENOPAUSAL <0.3- 0.7 FEMALES: 1ST TRIMESTER 11.2- 90.0 2ND TRIMESTER 25.6- 89.4 3RD TRIMESTER 48.4-422.5 . Patients receiving DHEA-S supplements may show false elevation of progesterone for results near 1.0 ng/mL. Contact laboratory at [phone] if alternative testing is needed. CMV IgG and IgM Fa59Sgw9004 11:58AMBayron Mccarty Test NameResultFlagReference CMV IgG AntibodyREACTIVEASee Below Reference Range: NONREACTIVE CMV IGM [id number] 11:58AMBayron Mccarty Test NameResultFlagReference CMV IGM AB<30.00 [...] testing in two or more weeks. Xray Lucsktpokbyoqboejrs06Gww 2020 12:00AMBayron Mccarty [Mar 28, 2020 9:43AM Bayron Mccarty] Reason: Unspecified for Xray Hysterosalpingogram Test NameResultFlagReference Xray Hysterosalpingogram Please click on the link to view the study images Anti Mullerian Jpcxbnh19Fxl5770 12:03PMBayron Mccarty Test NameResultFlagReference Anti Mullerian Hormone6.36 ng/mL For assays employing antibodies, the possibility exists for interference by heterophile antibodies in the samples.1 1.Oswald Crews. Interferences in Immunoassays - still a threat. Clin. Chem. 2000; 46: 7744-0320. This test was developed and its performance characteristics determined by [facility]. It has not been cleared or approved by the Food and Drug Administration. Reference Range: Females 26 - 30y: 1.03 - 11.10 Median 4.20 AMH concentrations of >= 1.06 ng/mL is correlated with a better response to ovarian stimulation, produced more retrievable oocytes and higher odds of live according to Carey et al. Fertility and Sterility. 2010: 94:8670-1912. The current AMH test method correlates with [...] exclude an AMH-secreting ovarian tumor. Rubella IgG Xugpkjed22Rbm5029 12:03PMBayron Mccarty Test NameResultFlagReference Rubella IgG AntibodyPOSITIVE [...] TSH WITH REFLEX TO FREE T4 IF [id number] 12:03PMBayron Mccarty Test NameResultFlagReference Thyroid Stimulating Hormone, Serum2.17 mIU/LSee Below Reference Range: 0.44 - 3.98 TSH testing is performed using different testing methodology at [facility] than at other [facility]. Direct result comparisons should only be made within the same method. Varicella Zoster IgG Ndiqxlkx30Vnt6590 12:03PMBayron Mccarty Test NameResultFlagReference Varicella Zoster IgG [...] altered results in serological assays. Vitamin D 25-Pggusav80Ync3905 12:03PMBayron Mccarty Test NameResultFlagReference Vitamin D 25-Hydroxy, Level17 ng/mLA . DEFICIENCY: < 20 NG/ML INSUFFICIENCY: 20-29 NG/ML SUFFICIENCY: 30-100 NG/ML THIS ASSAY ACCURATELY QUANTIFIES THE SUM OF VITAMIN D3, 25-HYDROXY AND VIT D2,25-HYDROXY. { 17-Hydroxyprogesterone, Swukk86Pus1856 12:03PMBayron Mccarty Test NameResultFlagReference 17-Hydroxyprogesterone, Serum33 ng/dL [...] Endocrinol Metab. 1991;73:674-686; J Clin Endocrinol Metab. 1989;69;6872-1705; J Clin Endocrinol Metab. 1994;78:226-270. Pediatr Res 1988;23:525-529. MedLinePlus (accessed 10/25/13). This test was developed and its analytical performance characteristics have been determined by [facility] [place]. It has not been cleared or approved by the U.S. Food and Drug Administration. This assay has been validated pursuant to the CLIA regulations and is used for clinical purposes. DHEA Sulfate, Wmiwu97Zdu2569 12:03PMBibiana Bayron Test NameResultFlagReference DHEA Sulfate, Pejtd941 ug/dL65 - 395 MATURITY-BASED REFERENCE RANGES: PUBERTAL [...] laboratory for further information. Testosterone Free + Bktfu22Wtr7122 12:03PMBayron Mccarty Test NameResultFlagReference Testosterone, Total63 ng/dLH2-45 For additional information, please refer to http://education.Ranku/faq/ TotalTestosteroneLCMSMSF AQ165 (This link is being provided for informational/ educational purposes only.) This test was developed and its analytical performance characteristics have been determined by [facility] [place], [place]. It has not been cleared or approved by the U.S. Food and Drug Administration. This assay has been validated pursuant to the CLIA regulations and is used for clinical purposes. Testosterone, Free Serum8.8 pg/mLH0.1-6.4 This test was developed and its analytical performance characteristics have been determined by [employer] [place] [place]. It has not been cleared or approved by the U.S. Food and Drug Administration. This assay has been validated pursuant to the CLIA regulations and is used for clinical purposes. Hemoglobin [id number] 12:03PMBayron Mccarty Test NameResultFlagReference Hemoglobin A1C, Level5.5 % Diagnosis of Diabetes-Adults Non-Diabetic: < or = 5.6% Increased risk for developing diabetes: 5.7-6.4% Diagnostic of diabetes: > or = 6.5% . Monitoring of Diabetes Age (y) Therapeutic Goal (%) Adults: >18 <7.0 Pediatrics: 13-18 <7.5 7-12 <8.0 0- 6 7.5-8.5 [employer]. Diabetes Care 33(S1), May 2009. Estimated Average Lbaotlq876 MG/DL GC + Chlamydia By Amplified Jzacmrsdp29Gjk2331 12:03PMBayron Mccarty Test NameResultFlagReference N.GONORRHEA,AMPLIFIEDNEG ATIVENegative SOURCE: Urine Chlamydia Trach, AmplifiedNEGATIVENegativ e Hepatitis B Surface Aubosuw99Pss7500 12:03PMBayron Mccarty Test NameResultFlagReference Hep.B Surface AgNONREACTIVESee Below Reference Range: NONREACTIVE Biotin interference may cause falsely decreased results. Patients taking a Biotin dose of up to 5 mg/day should refrain from taking Biotin for 24 hours before sample collection. Providers may contact their local laboratory for further information. Hepatitis C Antibody [id number] 12:03PMBayron Mccarty Test NameResultFlagReference Hepatitis C-AntibodyNONREACTIVESee Below Reference Range: NONREACTIVE Results from patients taking biotin supplements or receiving high-dose biotin therapy should be interpreted with caution due to possible interference with this test. Providers may contact their local laboratory for further information. HIV 1/2 ANTIGEN/ANTIBODY SCREEN WITH REFLEX TO [id number] 12:03PMBayron Mccarty NameResultFlagReference HIV 1/2 AG/AB SCREENNONREACTIVESee Below Reference Range: NONREACTIVE HIV Ag/Ab screen is performed using the Siemens [employer] HIV Ag/Ab Combo assay which detects the presence of HIV p24 antigen as well as antibodies to HIV-1 (Group M and O) and HIV-2. SYPHILIS SCREENING WITH DROWLG31Vli2728 12:03Bayron Silva Test NameResultFlagReference SYPHILIS TOTAL ANTIBODYNONREACTIVESee Below SOURCE: Reference Range: NONREACTIVE No significant level of Treponema pallidum antibody detected. Repeat testing in 2 to 4 weeks may be considered if early infection or incubating syphilis infection is suspected. Signatures Electronically signed by : Bayron Mccarty MD; Jun 19 2020 10:16AM EST (Author) Normal [employer] CMV IGM ABon 04-20-2020 CMV IGM AB <30.00 Normal [facility] Comment on above: Result Comment: REFE [...] weeks. Performed By: #### C MVM2 #### [facility] [address] [place] [address] CMV IGG AND IGM ABon 020 CMV IGG AB REACTIVE Abnormal NONREACTIVE [facility] Comment on above: Performed By: #### C MV2 #### [facility] [address] [place] [address] PROGESTERONEon 04-16-2020 PROGESTERONE 10.5 ng/mL Normal [facility] Comment on above: Result Comment: REF VALUES MALE <0.3- 1.2 FOLLICULAR PHASE <0.3- 1.4 LUTEAL PHASE 3.3-25.6 MID-LUTEAL PHASE 4.4-28.0 POSTMENOPAUSAL <0.3- 0.7 FEMALES: 1ST TRIMESTER 11.2- 90.0 2ND TRIMESTER 25.6- 89.4 3RD TRIMESTER 48.4-422.5 . Patients receiving DHEA-S supplements may show false elevation of progesterone for results near 1.0 ng/mL. Contact laboratory at [phone] if alternative testing is needed. Performed By: #### P BOBBY #### [facility] [address] [place] [address] HCG,BETA-QUANTITATIVEon HCG,BETA-QUANTITATIVE <2 Normal [facility] Comment on above: Result Comment: Low- [...] performed using a different test methodology at [facility] than other [facility]. Direct result comparison should only be made within the same method. REF VALUES NON FEMALE <5 MALES <5 Performed By: #### H CGQU #### [address] [id number] DESKTOP SUPPORT SPECIALIST - Office Visiton DESKTOP SUPPORT SPECIALIST - Office Visit Chief Complaint An interactive [...] test results. Roby JEWELL. History of Present Ncmjgsa5404/14/2020 9:30AM JALEESA ARRIETA , 30 year is contacted for an (audio-visual, or audio only) Telehealth visit. Today's visit was provided through telemedicine conferencing: Using Sensum platform. Consent: The concept of telemedicine? has [...] 25 MCG (1000 UT) Oral Tablet; Therapy: 41Dsp1265 to Recorded Dispense: 0 Days ; #: Sufficient Tablet; Refill: 0; KEVIN = N; Record; Last Updated By: Breezy Jasso; 2020 1:15:24 PM Vitals Vital Signs Recorded: 66Iek1038 09:08AM Height5 ft 6 in Dxvufp474 lb BMI Zlcqjpdyre15.81 BSA Calculated2.34 BLB49Ala6442 Gravida1 Para0 Pain Scale0 Physical Exam This is a telehealth appointment Results/Data Anti Mullerian Zjgfabx85Qnu9644 12:03PMBayron Mccarty Test NameResultFlagReference Anti Mullerian Hormone6.36 ng/mL For assays employing antibodies, the possibility exists for interference by heterophile antibodies in the samples.1 1.Kricka L. Interferences in Immunoassays - still a threat. Clin. Chem. 2000; 46: 9549-6009. This test was developed and its performance characteristics determined by [facility]. It has not been cleared or approved by the Food and Drug Administration. Reference Range: Females 26 - 30y: 1.03 - 11.10 Median 4.20 AMH concentrations of >= 1.06 ng/mL is correlated with a better response to ovarian stimulation, produced more retrievable oocytes and higher odds of live according to Gleicher et al. Fertility and Sterility. 2010: 94:6131-6927. The current AMH test method correlates with [...] exclude an AMH-secreting ovarian tumor. Anti Mullerian Kdpdqtt78Nsu6732 12:03PMBayron Mccarty Test NameResultFlagReference Anti Mullerian Hormone6.36 ng/mL For assays employing antibodies, the possibility exists for interference by heterophile antibodies in the samples.1 1.Oswald Crews. Interferences in Immunoassays - still a threat. Clin. Chem. 2000; 46: 4044-4377. This test was developed and its performance characteristics determined by [facility]. It has not been cleared or approved by the Food and Drug Administration. Reference Range: Females 26 - 30y: 1.03 - 11.10 Median 4.20 AMH concentrations of >= 1.06 ng/mL is correlated with a better response to ovarian stimulation, produced more retrievable oocytes and higher odds of live according to Gleicher et al. Fertility and Sterility. 2010: 94:4051-3109. The current AMH test method correlates with [...] exclude an AMH-secreting ovarian tumor. Rubella IgG Llexxcva37Nxt7575 12:03PMBayron Mccarty Test NameResultFlagReference Rubella IgG AntibodyPOSITIVE [...] TSH WITH REFLEX TO FREE T4 IF [id number] 12:03PMBayron Mccarty Test NameResultFlagReference Thyroid Stimulating Hormone, Serum2.17 mIU/LSee Below Reference Range: 0.44 - 3.98 TSH testing is performed using different testing methodology at [facility] than at other [facility]. Direct result comparisons should only be made within the same method. Varicella Zoster IgG Vglmdiox76Jnj9054 12:03PMBayron Mccarty Test NameResultFlagReference Varicella Zoster IgG [...] altered results in serological assays. Vitamin D 25-Hshurnq04Aav8380 12:03PMBayron Mccarty Test NameResultFlagReference Vitamin D 25-Hydroxy, Level17 ng/mLA . DEFICIENCY: < 20 NG/ML INSUFFICIENCY: 20-29 NG/ML SUFFICIENCY: 30-100 NG/ML THIS ASSAY ACCURATELY QUANTIFIES THE SUM OF VITAMIN D3, 25-HYDROXY AND VIT D2,25-HYDROXY. { 17-Hydroxyprogesterone, Tsfom30Dwu6953 12:03PMBayron Mccarty Test NameResultFlagReference 17-Hydroxyprogesterone, Serum33 ng/dL [...] Endocrinol Metab. 1991;73:674-686; J Clin Endocrinol Metab. 1989;69;1982-7395; J Clin Endocrinol Metab. 1994;78:226-270. Pediatr Res 1988;23:525-529. MedLinePlus (accessed 10/25/13). This test was developed and its analytical performance characteristics have been determined by [facility] [place]. It has not been cleared or approved by the U.S. Food and Drug Administration. This assay has been validated pursuant to the CLIA regulations and is used for clinical purposes. DHEA Sulfate, Pamcv60Aqu0513 12:AdrainoBayron Mccarty Test NameResultFlagReference DHEA Sulfate, Ycbzq730 ug/dL65 - 395 MATURITY-BASED REFERENCE RANGES: PUBERTAL [...] laboratory for further information. Testosterone Free + Vzkqn40Zur6819 12:03PMBayron Mccarty Test NameResultFlagReference Testosterone, Total63 ng/dLH2-45 For additional information, please refer to http://education.Ranku/faq/ TotalTestosteroneLCMSMSF AQ165 (This link is being provided for informational/ educational purposes only.) This test was developed and its analytical performance characteristics have been determined by [facility] [place]. It has not been cleared or approved by the U.S. Food and Drug Administration. This assay has been validated pursuant to the CLIA regulations and is used for clinical purposes. Testosterone, Free Serum8.8 pg/mLH0.1-6.4 This test was developed and its analytical performance characteristics have been determined by [facility] [place]. It has not been cleared or approved by the U.S. Food and Drug Administration. This assay has been validated pursuant to the CLIA regulations and is used for clinical purposes. Hemoglobin K9W78Csz0792 12:03PMBayron Mccarty Test NameResultFlagReference Hemoglobin A1C, Level5.5 % Diagnosis of Diabetes-Adults Non-Diabetic: < or = 5.6% Increased risk for developing diabetes: 5.7-6.4% Diagnostic of diabetes: > or = 6.5% . Monitoring of Diabetes Age (y) Therapeutic Goal (%) Adults: >18 <7.0 Pediatrics: 13-18 <7.5 7-12 <8.0 0- 6 7.5-8.5 [employer]. Diabetes Care 33(S1), May 2009. Estimated Average Kxzbzzl620 MG/DL GC + Chlamydia By Amplified Sqnnreiys47Cma8966 12:03PMBayron Mccarty Test NameResultFlagReference N.GONORRHEA,AMPLIFIEDNEG ATIVENegative SOURCE: Urine Chlamydia Trach, AmplifiedNEGATIVENegativ e Hepatitis B Surface Xymqqty22Nrb2820 12:03PMBayron Mccarty Test NameResultFlagReference Hep.B Surface AgNONREACTIVESee Below Reference Range: NONREACTIVE Biotin interference may cause falsely decreased results. Patients taking a Biotin dose of up to 5 mg/day should refrain from taking Biotin for 24 hours before sample collection. Providers may contact their local laboratory for further information. Hepatitis C Antibody Iiuj79Uks8611 12:03PMBayron Mccarty Test NameResultFlagReference Hepatitis C-AntibodyNONREACTIVESee Below Reference Range: NONREACTIVE Results from patients taking biotin supplements or receiving high-dose biotin therapy should be interpreted with caution due to possible interference with this test. Providers may contact their local laboratory for further information. HIV 1/2 ANTIGEN/ANTIBODY SCREEN WITH REFLEX TO [id number] 12:03PMBayron Mccarty Test NameResultFlagReference HIV 1/2 AG/AB SCREENNONREACTIVESee Below Reference Range: NONREACTIVE HIV Ag/Ab screen is performed using the Siemens [employer] HIV Ag/Ab Combo assay which detects the presence of HIV p24 antigen as well as antibodies to HIV-1 (Group M and O) and HIV-2. SYPHILIS SCREENING WITH LODGGC48Gpy6354 12:03PMBayron Mccarty Test NameResultFlagReference SYPHILIS TOTAL ANTIBODYNONREACTIVESee Below SOURCE: Reference Range: NONREACTIVE No significant level of Treponema pallidum antibody detected. Repeat testing in 2 to 4 weeks may be considered if early infection or incubating syphilis infection is suspected. Diagnoses/Problems Irregular menses (626.4) (N92.6) Morbid obesity (278.01) (E66.01) Orders HCG, Beta Quantitative; Status:Active; Requested for:67Qra0668; Perform:Lab Services - Lab To Draw (Blood Test); Due:13Jul2020;Ordered; For:Irregular menses; Ordered By:Bayron Mccarty; Progesterone, Serum; Status:Active; Requested for:22Poj3344; Perform:Lab Services - Lab To Draw (Blood [...] MD [facility] [phone] [place] [phone] [place] Appointment Duration:. 25 minutes; greater than half [...] MD [facility] [phone] [place] [phone] [place] 1 Amended By: Bayron Mccarty; Apr 14 2020 4:50 PM ESTSignatures Electronically signed by : Bayron Mccarty MD; Apr 14 2020 4:51PM EST (Author) Normal [employer] DESKTOP SUPPORT SPECIALIST - Procedure Visiton 1 05-28-2019 DESKTOP SUPPORT SPECIALIST - Procedure Visit Chief Complaint pt presents [...] 1 CAPSULE EVERY 12 HOURS DAILY; Therapy: 09Kck7759 to (Evaluate:40Qpv5577) Requested for: 86Qms1133; Last Rx:[id number] Ordered Rx By: Bayron Mccarty; Dispense: 5 Days ; #:10 Capsule; Refill: 0;For: Fertility testing; KEVIN = N; Verified Transmission to [place] [address]; Msg to Pharmacy: start medication the night before her procedure; Last Updated By: Elham VersiumTess; 01/24/2020 12:08:27 PM Vitamin D 25 MCG (1000 UT) Oral Tablet; Therapy: 79Xry6682 to Recorded Dispense: 0 Days ; #: [...] Mar 28 2020 4:10PM EST (Author) Normal [employer] DESKTOP SUPPORT SPECIALIST - Office Visiton 110 DESKTOP SUPPORT SPECIALIST - Office Visit Chief Complaint The patient [...] is considering single parent procreation. Her usual [employer] with whom she would plan to follow with for care in a future is Dr. Ng in [place]. Active Problems Female infertility (628.9) (N97.9) Fertility [...] 1 CAPSULE EVERY 12 HOURS DAILY; Therapy: 30Nyf4364 to (Evaluate:21Rty5895) Requested for: 52Oft2906; Last Rx:[id number] Ordered Rx By: Bayron Mccarty; Dispense: 5 Days ; #:10 Capsule; Refill: 0; For: Fertility testing; KEVIN = N; Verified Transmission to [place] [address]; Msg to Pharmacy: start medication the night before her procedure; Last Updated By: Cindi Lizarraga; 01/24/2020 12:08:27 PM Vitamin D 25 MCG (1000 UT) Oral Tablet; Therapy: [id number] to Recorded Dispense: 0 Days ; #: Sufficient Tablet; Refill: 0; KEVIN = N; Record; Last Updated By: Breezy Jasso; 2020 1:15:24 PM Vitals Vital Signs Recorded: 13Mar2020 01:08PM Heart Rate96 Ocvlbtnf953 Ydypmbiba11 Height5 ft 6 in Fauehr342 lb BMI Twmmbfmooj38.91 BSA Calculated2.39 Tobacco Useb) No Fall Screeninga) No falls within the last year [id number] Gravida1 Para0 Pain Scale0 Diagnoses/Problems Morbid obesity [...] consultation of which greater than 50% was jumy-ic-jmlc counseling. Weight loss prior to conception is [...] MD; Jun 12 2020 4:50PM EST Normal [employer] ANTI MULLERIAN HORMONEon ANTI MULLERIAN HORMONE 6.36 ng/mL Normal [facility] Comment on above: Result Comment: For assays employing antibodies, the possibility exists for interference by heterophile antibodies in the samples.1 1.Oswald Brunner Interferences in Immunoassays - still a threat. Clin. Chem. 2000; 46: 0162-0365. This test was developed and its performance characteristics determined by [facility]. It has not been cleared or approved by the Food and Drug Administration. Reference Range: Females 26 - 30y: 1.03 - 11.10 Median 4.20 AMH concentrations of >= 1.06 ng/mL is correlated with a better response to ovarian stimulation, produced more retrievable oocytes and higher odds of live according to Michaeler et al. Fertility and Sterility. 2010: 94:7419-8178. The current AMH test method correlates with [...] ovarian tumor. Performed By: #### A #### [facility] [address] [place] [address] [id number] 17-HYDROXYPROGESTERONEon 17-HYDROXYPROGESTERON E 33 ng/dL Normal [facility] Comment on above: Result Comment: Unable to [...] Endocrinol Metab. 1991;73:674-686; J Clin Endocrinol Metab. 1989;69;3432-5250; J Clin Endocrinol Metab. 1994;78:226-270. Pediatr Res 1988;23:525-529. MedLinePlus (accessed 10/25/13). This test was developed and its analytical performance characteristics have been determined by [facility] [place], [place]. It has not been cleared or approved by the U.S. Food and Drug Administration. This assay has been validated pursuant to the CLIA regulations and is used for clinical purposes. Performed By: #### 1 7OHP #### [facility] [address] [place], [place] TESTOST,FREE AND TOTALon TESTOSTERONE TOT.LC/MS/MS 63 ng/dL High 2-45 [facility] Comment on above: Result Comment: For additional information, please refer to http://education.[employer]/faq/ WiqvuIooynxtbbnmcWFFSHADKL675 (This link is being provided for informational/ educational purposes only.) This test was developed and its analytical performance characteristics have been determined by [facility] [place]. It has not been cleared or approved by the U.S. Food and Drug Administration. This assay has been validated pursuant to the CLIA regulations and is used for clinical purposes. Performed By: #### G [facility] #### [facility] [address] [place] [address] TESTOSTERONE,FREE 8.8 pg/mL High 0.1-6.4 [facility] Comment on above: Result Comment: This test was developed and its analytical performance characteristics have been determined by [facility] [place]. It has not been cleared or approved by the U.S. Food and Drug Administration. This assay has been validated pursuant to the CLIA regulations and is used for clinical purposes. Performed By: #### G [facility] #### [facility] [address] [place] [address] DHEA SULFATEon 01-25-2020 DHEA SULFATE 214 ug/dL Normal 65 - 395 [facility] Comment on above: Result Comment: MATU RITY-BASED [...] for further information. Performed By: #### G [facility] #### [facility] [address] [place] [address] GC + CHLAMYDIA BY AMPLIFIED DETECTIONon 01-25-2020 CHLAMYDIA TRACH.,AMPLIFIED Negative Normal Negative [facility] Comment on above: Performed By: #### G [facility] #### [facility] [address] [place] [address] N.GONORRHEA,AMPLIFIED Negative Normal Negative [facility] Comment on above: Performed By: #### G [facility] #### [facility] [address] [place] [address] HEPATITIS B SURFACE AGon HEP.B SURFACE AG NONREACTIVE Normal NONREACTIVE [facility] Comment on above: Result Comment: Biot in interference may cause falsely decreased results. Patients taking a Biotin dose of up to 5 mg/day should refrain from taking Biotin for 24 hours before sample collection. Providers may contact their local laboratory for further information. Performed By: #### G [facility] #### [facility] [address] [place] [address] HEPATITIS C ABon 01-25-2020 HEPATITIS C AB NONREACTIVE Normal NONREACTIVE [facility] Comment on above: Result Comment: Resu lts from patients taking biotin supplements or receiving high-dose biotin therapy should be interpreted with caution due to possible interference with this test. Providers may contact their local laboratory for further information. Performed By: #### H [facility] #### [facility] [address] [place] [address] HIV ANTIGEN/ANTIBODY SCREENo n 01-25-2020 HIV AG/AB SCREEN NONREACTIVE Normal NONREACTIVE [facility] Comment on above: Result Comment: HIV Ag/Ab screen is performed using the Siemens [employer] HIV Ag/Ab Combo assay which detects the presence of HIV p24 antigen as well as antibodies to HIV-1 (Group M and O) and HIV-2. Performed By: #### G CCHA #### [facility] [address] [place] [address] RUBELLA IGG ABon 01-25-2020 RUBELLA IGG AB Positive Normal [facility] Comment on above: Result Comment: INTE [...] assays. Performed By: #### R UBIG #### [facility] [address] [place] [address] SYPHILIS SCREENING WITH REFL EXon 01-25-2020 SYPHILIS TOTAL AB NONREACTIVE Normal NONREACTIVE [facility] Comment on above: Result Comment: No s ignificant level of Treponema pallidum antibody detected. Repeat testing in 2 to 4 weeks may be considered if early infection or incubating syphilis infection is suspected. Performed By: #### S YPHR #### [facility] [address] [place] [address] TSH WITH REFLEX TO FREE T4 I F ABNORMALon 01-25-2020 TSH Qn 2.17 m[IU]/L Normal 0.44 - 3.98 [facility] [place] Comment on above: Result Comment: TSH testing is performed using different testing methodology at [facility] than at other [facility]. Direct result comparisons should only be made within the same method. Performed By: #### G CCHA #### [facility] [address] [place], [place] VARICELLA ZOSTER IGG ABon VARICELLA ZOSTER IGG AB Negative Normal NEGATIVE [facility] Comment on above: Result Comment: INTE RPRETATIVE [...] in serological assays. Performed By: #### V [facility] #### [facility] [address] [place] [address] VITAMIN D, 25-HYDROXYon 01-10 VITAMIN D, 25-HYDROXY 17 ng/mL Abnormal [facility] Comment on above: Result Comment: . DEFICIENCY: < 20 NG/ML INSUFFICIENCY: 20-29 NG/ML SUFFICIENCY: 30-100 NG/ML THIS ASSAY ACCURATELY QUANTIFIES THE SUM OF VITAMIN D3, 25-HYDROXY AND VIT D2,25-HYDROXY. { Performed By: #### G [facility] #### [facility] [address] [place] [address] GC + CHLAMYDIA BY AMPLIFIED DETECTIONon 01-24-2020 Lab Specimen Source Urine Normal [facility] Comment on above: Performed By: #### G [facility] #### [facility] [address] [place] [address] HEMOGLOBIN A1Con 01-24-2020 HbA1c (Bld) [Mass fraction] 5.5 % Normal [facility] Comment on above: Result Comment: Diag nosis of Diabetes-Adults Non-Diabetic: < or = 5.6% Increased risk for developing diabetes: 5.7-6.4% Diagnostic of diabetes: > or = 6.5% . Monitoring of Diabetes Age (y) Therapeutic Goal (%) Adults: >18 <7.0 Pediatrics: 13-18 <7.5 7-12 <8.0 0- 6 7.5-8.5 [employer]. Diabetes Care 33(S1), May 2009. Performed By: #### H BA1E #### [facility] [address] [place] [address] HbA1c (Bld) [Mass fraction] 111 MG/DL Normal [facility] Comment on above: Performed By: #### H BA1E #### [facility] [address] [place] [address] DESKTOP SUPPORT SPECIALIST - Office Visiton 01-10 DESKTOP SUPPORT SPECIALIST - Office Visit Chief Complaint 29 year [...] is currently incarcerated, and will be in care home until 2026. She is interested in pursuing fertility testing today, and pending these results would potentially be interested in single-parent procreation with donor sperm. She is not currently sexually active. She has a history of ectopic in 2011, which was treated with laparoscopic left salpingectomy in [facility]. 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: STDs: Yes, remote history of gonorrhea [...] PM Vitals Vital Signs Recorded: 24Jan2020 11:13AM Lrxvmkzqdsa40.7 F Heart Etrd100 Chkoeczw267 Awwuhhlht33 Height5 ft 6 in Muggqk654 lb BMI Wbdgvovybu56.13 BSA Calculated2.35 Tobacco Useb) No Fall Screeninga) No falls within the last year [id number] Gravida1 Para0 Pain Scale0 Diagnoses/Problems Female infertility (628.9) (N97.9) Fertility testing (V26.21) (Z31.41) Morbid obesity (278.01) (E66.01) Irregular menses (626.4) (N92.6) Screening for STD (sexually transmitted disease) (V74.5) (Z11.3) *Orders Anti Mullerian Hormone; Status:Active; Requested for:92Rri2489; Perform:Lab Services - Lab To Draw (Non-Blood Test); Due:51Awx6924;Ordered; For:Female infertility, Fertility testing, Irregular menses, Morbid [...] Status: Hold For - Scheduling Requested for: [id number] Ordered; For: Morbid obesity; Ordered By: Bayron Mccarty Performed: Due: 73Urn0985 17-Hydroxyprogesterone, Serum; Status:Active; Requested for:99Ycs5800; Perform:Lab Services - Lab To Draw (Blood Test); Due:60Sia3550;Ordered; For:Screening for STD (sexually transmitted disease); Ordered By:Bayron Mccarty; DHEA Sulfate, Serum; Status:Active; Requested for:08Znl0600; Perform:Lab Services - Lab To Draw (Blood Test); Due:96Msa3557;Ordered; For:Screening for STD (sexually transmitted disease); Ordered By:Bayron Mccarty; Hemoglobin A1C; Status:Active; Requested for:62Reb1179; Perform:Lab Services - Lab To Draw (Blood Test); Due:59Jrt2191;Ordered; For:Screening for STD (sexually transmitted disease); Ordered By:Bayron Mccarty; Rubella IgG Antibody; Status:Active; Requested for:42Ugk6883; Perform:Lab Services - Lab To Draw (Blood Test); Due:56Rxv9937;Ordered; For:Screening for STD (sexually transmitted disease); Ordered By:Bayron Mccarty; Testosterone Free + Total; Status:Active; Requested for:24Gnj3799; Perform:Lab Services - Lab To Draw (Blood Test); Due:17Wja3844;Ordered; For:Screening for STD (sexually transmitted disease); Ordered By:Bayron Mccarty; TSH WITH REFLEX TO FREE T4 IF ABNORMAL; Status:Active; Requested for:38Elc3612; Perform:Lab Services - Lab To Draw (Blood Test); Due:37Rgz8915;Ordered; For:Screening for STD (sexually transmitted disease); Ordered By:Bayron Mccarty; Ultrasound Pelvis Transvaginal; Status:Hold For - Scheduling; Requested for:03Eza5519; Perform:[facility]; Order Comments:will call with menses to schedule; Due:11Dyd4868;Ordered; For:Screening for STD (sexually transmitted disease); Ordered By:Bayron Mccarty; Radiologist to Determine Optimal Study : Y What are the patient's signs and symptoms? : fert testing Varicella Zoster IgG Antibody; Status:Active; Requested for:[id number]; Perform:Lab Services - Lab To Draw (Blood Test); Due:77Bwl6822;Ordered; For:Screening for STD (sexually transmitted disease); Ordered By:Bayron Mccarty; Vitamin D 25-Hydroxy; Status:Active; Requested for:27Lzs8181; Perform:Lab Services - Lab To Draw (Blood Test); Due:63Nto0997;Ordered; For:Screening for STD (sexually transmitted disease); Ordered By:Bayron Mccarty; Xray Hysterosalpingogram; Status:Hold For - Scheduling; Requested for:24Jan2020; Perform:[facility]; Order Comments:will call with menses to schedule. schedule between CD5-12. start doxycycline night prior to procedure; Due:63Ver2674;Ordered; For:Screening for STD (sexually transmitted disease); Ordered [...] sent to her home pharmacy ([facility] in [place]) [ ] Day 3 FSH, LH, E2 [x] AMH [x] TSH [x] Prolactin [x] Testosterone, DHEAS [x] HgA1C [x] STD screening [x ] Preconceptual screening including Rubella,Varicella, Blood type [ ] Genetic Screen with [employer] - will consider [ ] Take vitamins [x] Return to see EXCEPTIONAL NEEDS TEACHER after workup complete to discuss management plan [...] REFL EXon 01-24-2020 Lab Specimen Source Normal [facility] Comment on above: Performed By: #### S [facility] #### [facility] [address] [place] [address] Performed By: #### V ARZG #### [facility] [address] [place] [address] Performed By: #### R UBIG #### [facility] [address] [place] [address] Vital Signs Date Time Vital Sign Value Performing Clinician Facility 04-06-2024 14:10-0500 Body mass index (BMI) [Ratio] 48.58 kg/m2 Mena CARRILLO Work Phone: [facility] 04-06-2024 14:10-0500 Body weight 136.53 kg Mena CARRILLO Work Phone: [facility] 04-06-2024 14:10-0500 Diastolic blood pressure 80 mm[Hg] Mena Ann PA Work Phone: [facility] 04-06-2024 14:10-0500 Systolic blood pressure 128 mm[Hg] Mena Ann PA Work Phone: [facility] 03-22-2024 14:14-0500 Body mass index (BMI) [Ratio] 48.92 kg/m2 Tacho Shon DO Work Phone: [facility] 03-22-2024 14:14-0500 Body weight 137.49 kg Tacho Shon DO Work Phone: [facility] 03-22-2024 14:14-0500 Diastolic blood pressure 84 mm[Hg] Tacho Shon DO Work Phone: [facility] 03-22-2024 14:14-0500 Systolic blood pressure 126 mm[Hg] Tacho Shon DO Work Phone: [facility] 03-05-2024 23:11-0400 Diastolic blood pressure 78 mm[Hg] [facility] Work Phone: [facility] 03-05-2024 23:11-0400 Heart rate 90 /min [facility] [employer] Work Phone: [facility] 03-05-2024 23:11-0400 Respiratory rate 18 /min [facility] Work Phone: [facility] 03-05-2024 23:11-0400 SaO2% (BldA) [Mass fraction] 96 % [facility] Work Phone: [facility] 03-05-2024 23:11-0400 Systolic blood pressure 136 mm[Hg] [facility] Work Phone: [facility] 03-05-2024 19:59-0400 Body temperature 98.1 [degF] [facility] Work Phone: [facility] 03-05-2024 19:58-0400 Body height 167.64 cm [facility] Work Phone: [facility] 03-05-2024 19:58-0400 Body weight 136.55 kg [facility] Work Phone: [facility] 02-26-2024 19:50-0400 Body height 167.64 cm [facility] Work Phone: [facility] 02-26-2024 19:50-0400 Body temperature 97.8 [degF] [facility] Work Phone: [facility] 02-26-2024 19:50-0400 Body weight 136.98 kg [facility] Work Phone: [facility] 02-26-2024 19:50-0400 Diastolic blood pressure 91 mm[Hg] [facility] Work Phone: [facility] 02-26-2024 19:50-0400 Heart rate 103 /min [facility] Work Phone: [facility] 02-26-2024 19:50-0400 Respiratory rate 16 /min [facility] Work Phone: [facility] 02-26-2024 19:50-0400 SaO2% (BldA) [Mass fraction] 96 % [facility] Work Phone: [facility] 02-26-2024 19:50-0400 Systolic blood pressure 144 mm[Hg] [facility] Work Phone: [facility] 02-23-2024 14:01-0400 Body mass index (BMI) [Ratio] 48.76 kg/m2 Mena Garciavania CARRILLO Work Phone: [facility] 02-23-2024 14:01-0400 Body weight 137.04 kg Mena Garciaey PA Work Phone: [facility] 02-23-2024 14:01-0400 Diastolic blood pressure 82 mm[Hg] Mena Garciaey PA Work Phone: [facility] 02-23-2024 14:01-0400 Systolic blood pressure 128 mm[Hg] Mena Ann PA Work Phone: [facility] 10-06-2023 17:42-0400 Body height 167.64 cm [facility] Work Phone: [facility] 10-06-2023 17:42-0400 Body temperature 98.3 [degF] [facility] Work Phone: [facility] 10-06-2023 17:42-0400 Body weight 134 kg [facility] Work Phone: [facility] 10-06-2023 17:42-0400 Diastolic blood pressure 94 mm[Hg] [facility] Work Phone: [facility] 10-06-2023 17:42-0400 Heart rate 98 /min [facility] Work Phone: [facility] 10-06-2023 17:42-0400 Respiratory rate 18 /min [facility] Work Phone: [facility] 10-06-2023 17:42-0400 SaO2% (BldA) [Mass fraction] 100 % [facility] Work Phone: [facility] 10-06-2023 17:42-0400 Systolic blood pressure 142 mm[Hg] [facility] Work Phone: [facility] 09-17-2023 14:22-0400 Body height 167.6 cm Annaromi Rodríguezmakenzie BAÑUELOS [facility] 09-17-2023 14:22-0400 Body mass index (BMI) [Ratio] 47.61 kg/m2 Anna Ortiz SARMAD [facility] 09-17-2023 14:22-0400 Body weight 133.81 kg Anna Rodríguezmakenzie BAÑUELOS [facility] 08-20-2023 13:05-0400 Body height 167.6 cm Tonya Senior MUSIC ARTIST.PALLET RECTIFIER Work Phone: [facility] 08-20-2023 13:05-0400 Body weight 133.81 kg Tonya Parrish MUSIC ARTIST.PALLET RECTIFIER Work Phone: [facility] 08-07-2023 15:230400 Body height 168.91 cm [facility] [employer] Work Phone: [facility] 08-07-2023 15:23-0400 Body mass index (BMI) [Ratio] 46.9 kg/m2 [facility] [employer] Work Phone: [facility] 08-07-2023 15:23-0400 Body weight 133.89 kg [facility] [employer] Work Phone: [facility] 08-07-2023 15:23-0400 Diastolic blood pressure 83 mm[Hg] [facility] [employer] Work Phone: [facility] 08-07-2023 15:23-0400 Heart rate 101 /min [facility] [employer] Work Phone: [facility] 08-07-2023 15:23-0400 Respiratory rate 18 /min [facility] [employer] Work Phone: [facility] 08-07-2023 15:23-0400 SaO2% (BldA) [Mass fraction] 98 % [facility] [employer] Work Phone: [facility] 08-07-2023 15:23-0400 Systolic blood pressure 120 mm[Hg] [facility] [employer] Work Phone: [facility] 06-13-2023 11:00-0500 Body height 168.28 cm Nicholas Michaels Other [facility] 06-13-2023 11:00-0500 Body mass index (BMI) [Ratio] 48.53 kg/m2 Nicholas Michaels Other [employer] Other 06-13-2023 11:00-0500 Body weight 137.44 kg Nicholas Michaels Other [employer] Other 06-13-2023 11:00-0500 Body weight 137.43 kg [facility] Phone: [facility] 06-13-2023 11:00-0500 Diastolic blood pressure 82 mm[Hg] Nicholas Michaels Other [facility] 06-13-2023 11:00-0500 Respiratory rate 18 /min Nicholas Michaels Other [employer] Other 06-13-2023 11:00-0500 SaO2% (BldA) [Mass fraction] 97 % Nicholas Michaels Other [employer] Other 06-13-2023 11:00-0500 Systolic blood pressure 120 mm[Hg] Nicholas Michaels Other [facility] 01-08-2023 10:45-0400 Body height 168.28 cm Nicholas Michaels Other [employer] Other 01-08-2023 10:45-0400 Body mass index (BMI) [Ratio] 52.89 kg/m2 Nicholas Michaels Other [employer] Other 01-08-2023 10:45-0400 Body weight 149.78 kg Nicholas Michaels Other [employer] Other 01-08-2023 10:45-0400 Diastolic blood pressure 81 mm[Hg] Nicholas Michaels Other [employer] Other 01-08-2023 10:45-0400 Respiratory rate 18 /min Nicholas Michaels Other [employer] Other 01-08-2023 10:45-0400 SaO2% (BldA) [Mass fraction] 97 % Nicholas Michaels Other [employer] Other 01-08-2023 10:45-0400 Systolic blood pressure 122 mm[Hg] Nicholas Michaels Other [employer] Other 06-18-2022 16:57-0500 Body height 167.64 cm [facility] Work Phone: [facility] 06-18-2022 16:57-0500 Body weight 157 kg [facility] Work Phone: [facility] 06-18-2022 16:56-0500 Body temperature 98.3 [degF] [facility] Work Phone: [facility] 06-18-2022 16:56-0500 Diastolic blood pressure 67 mm[Hg] [facility] Work Phone: [facility] 06-18-2022 16:56-0500 Heart rate 95 /min [facility] Work Phone: [facility] 06-18-2022 16:56-0500 Respiratory rate 20 /min [facility] Work Phone: [facility] 06-18-2022 16:56-0500 SaO2% (BldA) [Mass fraction] 97 % [facility] [employer] Work Phone: [facility] 06-18-2022 16:56-0500 Systolic blood pressure 158 mm[Hg] [facility] [employer] Work Phone: [facility] 12-02-2021 20:26-0400 Body height 167.64 cm [facility] Work Phone: [facility] 12-02-2021 20:26-0400 Body temperature 98.2 [degF] Services [facility] [employer] Work Phone: [facility] 12-02-2021 20:26-0400 Body weight 144.24 kg [facility] [employer] Work Phone: [facility] 12-02-2021 20:26-0400 Diastolic blood pressure 89 mm[Hg] Services [facility] [employer] Work Phone: [facility] 12-02-2021 20:26-0400 Heart rate 104 /min Services [facility] [employer] Work Phone: [facility] 12-02-2021 20:26-0400 Respiratory rate 20 /min Services [facility] [employer] Work Phone: [facility] 12-02-2021 20:26-0400 SaO2% (BldA) [Mass fraction] 96 % [facility] [employer] Work Phone: [facility] 12-02-2021 20:26-0400 Systolic blood pressure 156 mm[Hg] Services [facility] [employer] Work Phone: [facility] 06-19-2020 11:10-0500 BMI (Body Mass Index) 46.65 kg/m2 Bayron Bibiana AW-FBHCM-Hoghxj 310 [facility] Work Phone: 06-19-2020 11:10-0500 Body weight 131.09 kg Bayron Bibiana FT-VHCWA-Zzlzlv 310 [facility] Work Phone: 06-19-2020 11:10-0500 BSA (Body Surface Area) 2.34 m2 Bayron Bibiana UM-WHLQM-Txmwul 310 [facility] Work Phone: 06-19-2020 11:10-0500 Height 167.64 cm Bayron Bibiana MT-PEMHS-Kxwxzs 310 [facility] Work Phone: 06-19-2020 11:10-0500 1 1 Bayron Bibiana GV-BFYBZ-Taadnq 310 IV[facility] Work Phone: Comment on above: 06-19-2020 11:10-0500 0 1 Bayron Mccarty UL-DUCQY-Fxbmyv 310 IVF Work Phone: Comment on above: [...] Start: 03-30-2024 End: 03-30-2024 ambulatory TACHO R HSON [facility] Start: 03-22-2024 End: 03-22-2024 Bamboo flowsheet Tacho [...] Clinisync Result Encounter Mena CARRILLO Work Phone: [facility] External Department Unsolicited Start: 03-19-2024 End: 03-19-2024 Clinisync Result Encounter Mena CARRILLO Work Phone: [facility] External Department Unsolicited Start: 03-05-2024 End: 03-05-2024 Emergency department patient visit Services [employer] Work Phone: [facility] Work Phone: Start: 03-01-2024 End: 03-01-2024 Orders Only Veda Hayes RN Maternal- Medic ine at [facility] Comment on above: Encounter for follow -up ultrasound of anatomy (Primary Dx); History of pre-eclampsia in prior , currently ; History of delivery, currently ; Obesity affecting in second trimester, unspecified obesity type Start: 02-26-2024 End: 02-26-2024 Emergency department patient visit Services [employer] Work Phone: [facility] Work Phone: Start: 02-23-2024 End: 02-23-2024 Bamboo flowsheet Mena CARRILLO Work Phone: [facility] BCP OB Start: 02-23-2024 End: 02-23-2024 Bamboo [...] Not Available Start: 02-17-2024 End: [facility] Start: 01-20-2024 End: 01-20-2024 ambulatory TACHO SHON Not Available Start: 01-19-2024 End: [facility] Start: 12-23-2023 End: 12-23-2023 ambulatory MENA ANN Not Available Start: 11-25-2023 End: 11-25-2023 ambulatory TACHO SHON Not Available Start: 10-30-2023 End: 10-30-2023 ambulatory TACHO SHON Not Available Start: 10-09-2023 End: 10-09-2023 ambulatory LATONIA GREENE Facility:[facility] Start: 10-06-2023 End: 10-06-2023 Emergency department patient visit Services [facility] Work Phone: [facility] Work Phone: Start: 09-17-2023 End: 09-17-2023 ambulatory ANNA ORTIZ Facility:[facility] Start: 09-17-2023 End: 09-17-2023 Nutrition therapy Anna Ortiz RD Nutrition Therapy Comment on above: Obesity, Class III, BMI 40-49.9 (morbid obesity) (HCC) (Primary Dx); Dietary counseling Start: 09-17-2023 End: 09-17-2023 Telemedicine consultation with patient Anna Ortiz RD Nutrition Therapy Start: 09-15-2023 Admission to same da surgery center Tonya Senior APRN.PALLET RECTIFIER Work Phone: General Surgery Comment on above: Results Start: 09-15-2023 E-mail encounter fro m caregiver Tonya Senior APRN.PALLET RECTIFIER Work Phone: General Surgery Start: 09-11-2023 Telephone encounter Tonya Senior APRN.PALLET RECTIFIER Work Phone: General Surgery Comment on above: Results Start: 09-08-2023 End: 09-08-2023 ambulatory TONYA SENIOR Facility:[facility] Start: 09-05-2023 End: 09-05-2023 ambulatory TONYA SENIOR Facility:[facility] Start: 09-01-2023 End: 09-02-2023 ambulatory LATONIA GREENE Facility:[facility] Start: 09-01-2023 End: 09-01-2023 Admission to same day surgery center Latonia Greene PhD Work Phone: General Surgery BMI PSYL Comment on above: NO SHOW (Primary Dx) Start: 09-01-2023 End: 09-01-2023 Telemedicine consultation with patient Latonia Willis Jerel PhD Work Phone: General Surgery BMI PSYL Start: 08-20-2023 Admission to [facility] center Tonya Senior APRN.PALLET RECTIFIER Work Phone: General Surgery Comment on above: Welcome to Bariatric Surgery Start: 08-20-2023 E-mail encounter fro m caregiver Tonya Senior APRN.PALLET RECTIFIER Work Phone: [place] [id number] Start: 08-20-2023 End: 08-20-2023 ambulatory Tonya Senior APRN.PALLET RECTIFIER Work Phone: General Surgery Comment on above: Body mass index (BMI ) of 50-59.9 in adult (HCC) (Primary Dx); Angel's thyroiditis; High blood cholesterol Start: 08-20-2023 End: 08-20-2023 Telemedicine consultation with patient Tonya Ron Senior APRN.PALLET RECTIFIER Work Phone: [facility] Start: 08-07-2023 End: 08-07-2023 ambulatory Services [facility] Work Phone: [facility] Work Phone: Start: 08-07-2023 End: 08-07-2023 Patient encounter procedure Services [facility] Work Phone: [facility] Work Phone: Start: 06-13-2023 Follow-up encounter Nicholas Michaels [facility] Start: 06-13-2023 Registered Recurring Services [facility] Work Phone: [facility] Work Phone: Start: 06-13-2023 End: 06-13-2023 ambulatory Nicholas Michaels [employer] Other Start: 06-13-2023 End: 06-13-2023 Patient encounter procedure Services Family [facility] Work Phone: [facility]- Start: 01-08-2023 End: 01-08-2023 ambulatory Nicholas Michaels Other [facility] Other Start: 01-08-2023 Nutrition therapy Nicholas Michaels [facility] Start: 06-18-2022 End: 06-18-2022 Emergency department patient visit Services [facility] Work Phone: [facility] Work Phone: Start: 06-03-2022 End: 06-03-[address] TACHO MENENDEZ Facility:[facility] Start: 12-02-2021 End: 12-02-2021 Emergency department patient visit Services [facility] Work Phone: [facility] Start: 07-08-2020 Patient encounter procedure Bayron Mccarty FL-MGQGD-Ubskhn 310 IVF Work Phone: Start: 07-05-2020 Patient encounter procedure Bayron Mccarty BL-WLAWP-Klakmr 310 IVF Work Phone: Start: 06-19-2020 Patient encounter procedure Bayron Mccarty AI-KTSDR-Ncjqjj 310 IVF Work Phone: Start: 04-14-2020 Patient encounter procedure Bayron Mccarty DJ-MKAQZ-Qxpycd 310 IVF Work Phone: Start: 03-28-2020 Patient encounter procedure Bayron Mccarty XC-NUMFL-Kkobqz 310 IVF Work Phone: Start: 2020 Patient encounter procedure Bayron Mccarty CH-FECUK-Mcdxes 310 IVF Work Phone: Start: 01-24-2020 Patient encounter procedure Bayron Mccarty YK-RQDZX-Bgznym 310 IVF Work Phone: Start: 08-01-2017 End: 08-02-2017 Ambulatory Agustin Ryanasiyasriram Facility:[id number] Start: 07-14-2017 End: 07-15-2017 Ambulatory Agustin Carrasquillosriram Facility:[id number] Procedures Date Procedure Procedure Detail Performing Clinician Start: 04-06-2024 Urnls dip stick/tabl et rgnt non-auto w/o micrscp Mena CARRILLO Work Phone: Start: 03-22-2024 Urnls dip stick/tabl et rgnt non-auto w/o micrscp Tacho Menendez DO Work Phone: Start: 03-19-2024 ALL CBC WITH AUTO DIFF Mena CARRILLO Work Phone: Start: 03-05-2024 Plain chest X-ray Servi malina [employer] [facility] Work Phone: Start: 03-05-2024 Respiratory Panel (PCR) Services [employer] [facility] Work Phone: Start: 03-05-2024 Streptococcus pyogen es antigen assay Services [employer] [facility] Work Phone: Start: 02-26-2024 Streptococcus pyogen es antigen assay Services [employer] [facility] Work Phone: Start: 02-23-2024 Urnls dip stick/tabl et rgnt non-auto w/o micrscp Mena CARRILLO Work Phone: Start: 12-23-2023 Microscopic observat ion [Identifier] in Cervix by Cyto stain Mena CARRILLO Work Phone: Start: 07-06-2020 Antibody screen Comment on above: Performed By: #### T +S #### [facility] [address] [place] [address] Start: 07-05-2020 IO Ultrasound, limit ed pelvic, follicle monitoring Bayron Mccarty Start: 06-26-2020 IO Ultrasound, limit ed pelvic, follicle monitoring Bayron Mccarty Start: 05-10-2020 Assay of progesterone J sharath Mccarty Adenoid excision Bayron wallace Cholecystectomy Bayron Chen ey SARS Antigen (LFIA) Services [employer] [facility] Work Phone: Plan of Treatment Date Care Activity Detail Author Start: 12-22-2028 Screening for malign ant neoplasm of cervix [facility] Start: 12-22-2026 Screening for malign ant neoplasm of cervix Pap Smear [facility] Start: 03-01-2025 End: 03-01-2025 US MFM with or without consult US MFM with or without consult Imaging Routine Encounter for follow-up ultrasound of anatomy History of pre-eclampsia in prior , currently History of delivery, currently Obesity affecting in second trimester, unspecified obesity type Expected: 03/01/2025 (Approximate), Expires: 03/01/2025 [facility] Work Phone: Comment on above: Expected: 03/01/2025 (Approximate), Expires: 03/01/2025 Start: 01-18-2025 Adult BMI Screening Adult BMI Screen ing [facility] Start: 01-18-2025 Tobacco Screening Tobacco Screening [facility] Start: 04-22-2024 End: 04-22-2024 Patient encounter procedure 04/22/2024 9:30 AM EST Routine [facility] [address] [place] [address] [place] [address] Tacho Menendez DO [address] [place] [address] [facility] Start: 04-06-2024 End: 04-06-2025 US biophysical profile w non stress test US biophysical profile w non stress test Imaging Routine H/O premature delivery Expected: 04/06/2024 (Approximate), Expires: 04/06/2025 [facility] Work Phone: Comment on above: Expected: 04/06/2024 (Approximate), Expires: 04/06/2025 Start: 04-06-2024 End: 04-06-2024 Patient encounter procedure 04/06/2024 1:30 PM EST Routine [facility] [address] [place] [address] Mena Ann PA [address] [place] [address] [facility] Start: 03-30-2024 End: 03-30-2024 Patient encounter procedure 03/30/2024 2:45 PM EST Appointment [facility] - Ultrasound [address] [place] [id number] [facility] - Ultrasound Start: 03-22-2024 End: 03-22-2024 Patient encounter procedure 03/22/2024 1:50 PM EST Routine [facility] [address] [place] [phone] Tacho Menendez, DO [address] [place] [address] [facility] Start: 03-22-2024 End: 03-22-2024 Professional / ancillary services management 03/22/2024 1:00 PM EST Ancillary Procedure [facility] [address] [place] [phone] [facility] Start: 03-16-2024 End: 03-16-2024 Patient encounter procedure 03/16/2024 1:30 PM EST Routine [facility] [address] [place] [phone] Tacho Menendez, DO [address] [place] [address] [facility] Start: 02-23-2024 End: 02-22-2025 CBC panel - Blood by Automated count CBC Lab Routine Diabetes mellitus screening Expected: 02/23/2024 (Approximate), Expires: 02/22/2025 [facility] Work Phone: Comment on above: Expected: 02/23/2024 (Approximate), Expires: 02/22/2025 Start: 02-23-2024 End: 02-22-2025 Measurement of glucose 1 hour after glucose challenge for glucose tolerance test Glucose tolerance, 1 hour Lab Routine Diabetes mellitus screening Expected: 02/23/2024 (Approximate), Expires: 02/22/2025 [facility] Comment on above: Expected: 02/23/2024 (Approximate), Expires: 02/22/2025 Start: 02-23-2024 End: 02-22-2025 US for US OB SCAN FOR GROWTH Imaging Routine size inconsistent with dates H/O premature delivery Expected: 02/23/2024 (Approximate), Expires: 02/22/2025 [facility] Comment on above: Expected: 02/23/2024 (Approximate), Expires: 02/22/2025 Start: 02-23-2024 End: 02-23-2024 Patient encounter procedure 02/23/2024 1:40 PM EDT Routine [facility] [address] [place] [address] Mena Ann PA [address] [place], [facility] Arrived [facility] Comment on above: Arrived Start: 01-11-2024 COVID-19 Vaccine () COVID-19 Vaccine () [facility] Start: 01-11-2024 Influenza vaccination N [facility] Start: 09-17-2023 End: 09-17-2023 Nutrition therapy 09/17/2023 2:30 PM EDT [facility] Nutrition Therapy [address] [address] Anna Ortiz, [address] [place] [address] Red/Davis/0 [facility] Comment on above: Red/Davis/0 [facility]/ [facility] Start: 09-12-2023 End: 09-12-2023 Admission to same day surgery center 09/12/2023 3:30 PM EDT [facility] General Surgery [address] [place] [address] Joo Bradley MD [address] [place], [place] [id number] Red/Kirk/0 Diet/[facility] Comment on above: Red/Kirk/0 Diet/Anth em Start: 09-05-2023 End: 09-05-2023 ambulatory 09/05/2023 11:45 AM EDT Results Only [facility] [address] [place] [address] [place] [address] [facility] Start: 08-20-2023 End: 11-19-2023 25-hydroxyvitamin D3 [Mass/volume] in Serum or Plasma VITAMIN D 25 HYDROXY Lab Routine Body mass index (BMI) of 50-59.9 in adult (HCC) Expected: 08/20/2023, Expires: 11/19/2023 [facility] Work Phone: Comment on above: Expected: 08/20/2023 , Expires: 11/19/2023 Start: 08-20-2023 End: 11-19-2023 CBC W Auto Differential panel - Blood COMPLETE BLOOD COUNT AND DIFFERENTIAL Lab Routine Body mass index (BMI) of 50-59.9 in adult ([facility]) Expected: 08/20/2023, Expires: 11/19/2023 [facility] Work Phone: Comment on above: Expected: 08/20/2023 , Expires: 11/19/2023 Start: 08-20-2023 End: 11-19-2023 Cobalamin (Vitamin B12) [Mass/volume] in Serum or Plasma VITAMIN B12 Lab Routine Body mass index (BMI) of 50-59.9 in adult (HCC) Expected: 08/20/2023, Expires: 11/19/2023 [facility] Work Phone: Comment on above: Expected: 08/20/2023 , Expires: 11/19/2023 Start: 08-20-2023 End: 11-19-2023 Comprehensive metabolic 2000 panel - Serum or Plasma COMPREHENSIVE METABOLIC PANEL Lab Routine High blood cholesterol Body mass index (BMI) of 50-59.9 in adult (HCC) Expected: 08/20/2023, Expires: 11/19/2023 [facility] Work Phone: Comment on above: Expected: 08/20/2023 , Expires: 11/19/2023 Start: 08-20-2023 End: 11-19-2023 Ferritin [Mass/volume] in Serum or Plasma FERRITIN Lab Routine Body mass index (BMI) of 50-59.9 in adult (HCC) Expected: 08/20/2023, Expires: 11/19/2023 [facility] Work Phone: Comment on above: Expected: 08/20/2023 , Expires: 11/19/2023 Start: 08-20-2023 End: 11-19-2023 Folate [Mass/volume] in Serum or Plasma FOLATE, SERUM Lab Routine Body mass index (BMI) of 50-59.9 in adult ([facility]) Expected: 08/20/2023, Expires: 11/19/2023 [facility] Work Phone: Comment on above: Expected: 08/20/2023 , Expires: 11/19/2023 Start: 08-20-2023 End: 11-19-2023 Helicobacter pylori IgG Ab [Presence] in Serum or Plasma by Immunoassay H PYLORI IGG AB Lab Routine Body mass index (BMI) of 50-59.9 in adult ([facility]) Expected: 08/20/2023, Expires: 11/19/2023 [facility] Work Phone: Comment on above: Expected: 08/20/2023 , Expires: 11/19/2023 Start: 08-20-2023 End: 11-19-2023 Hemoglobin A1c in Blood HEMOGLOBIN A1C Lab Routine Body mass index (BMI) of 50-59.9 in adult ([facility]) Expected: 08/20/2023, Expires: 11/19/2023 [facility] Work Phone: Comment on above: Expected: 08/20/2023 , Expires: 11/19/2023 Start: 08-20-2023 End: 11-19-2023 Iron and Iron binding capacity panel - Serum or Plasma IRON AND TIBC Lab Routine Body mass index (BMI) of 50-59.9 in adult ([facility]) Expected: 08/20/2023, Expires: 11/19/2023 [facility] Work Phone: Comment on above: Expected: 08/20/2023 , Expires: 11/19/2023 Start: 08-20-2023 End: 11-19-2023 Lipid 1996 panel - Serum or Plasma LIPID PANEL BASIC Lab Routine High blood cholesterol Body mass index (BMI) of 50-59.9 in adult ([facility]) Expected: 08/20/2023, Expires: 11/19/2023 [facility] Work Phone: Comment on above: Expected: 08/20/2023 , Expires: 11/19/2023 Start: 08-20-2023 End: 11-19-2023 Natriuretic peptide.B prohormone N-Terminal [Mass/volume] in Serum or Plasma NT PRO BNP Lab Routine Body mass index (BMI) of 50-59.9 in adult ([facility]) Expected: 08/20/2023, Expires: 11/19/2023 [facility] Work Phone: Comment on above: Expected: 08/20/2023 , Expires: 11/19/2023 Start: 08-20-2023 End: 11-19-2023 NICOTINE & METAB, UR NICOTINE & METAB, UR Lab Routine Body mass index (BMI) of 50-59.9 in adult ([facility]) Expected: 08/20/2023, Expires: 11/19/2023 [facility] Work Phone: Comment on above: Expected: 08/20/2023 , Expires: 11/19/2023 Start: 08-20-2023 End: 11-19-2023 Thyrotropin [Units/volume] in Serum or Plasma THYROID STIMULATING HORMONE Lab Routine Angel's thyroiditis Body mass index (BMI) of 50-59.9 in adult ([facility]) Expected: 08/20/2023, Expires: 11/19/2023 [facility] Work Phone: Comment on above: Expected: 08/20/2023 , Expires: 11/19/2023 Start: 08-20-2023 End: 11-19-2023 TOXICOLOGY SCREEN, ROUTINE URINE TOXICOLOGY SCREEN, ROUTINE URINE Lab Routine Body mass index (BMI) of 50-59.9 in adult ([facility]) Expected: 08/20/2023, Expires: 11/19/2023 [facility] Work Phone: Comment on above: Expected: 08/20/2023 , Expires: 11/19/2023 Start: 08-20-2023 End: 11-19-2023 VITAMIN B1 (THIAMINE), WHOLE BLOOD VITAMIN B1 (THIAMINE), WHOLE BLOOD Lab Routine Body mass index (BMI) of 50-59.9 in adult (HCC) Expected: 08/20/2023, Expires: 11/19/2023 [facility] Work Phone: Comment on above: Expected: 08/20/2023 , Expires: 11/19/2023 Start: 05-12-2023 Behavioral Health Screening Behavioral Health Screening [facility] Start: 01-10-2023 Covid-19 Vaccine () Covid-19 Vaccine () [facility] Start: 12-02-2021 Plain chest X-ray XR chest 1V portab le [facility] Start: 12-02-2021 XR Chest Single view [facility] Work Phone: Start: 2021 Screening for malign ant neoplasm of cervix HPV Testing [facility] Start: 2012 Screening for malign ant neoplasm of cervix Pap Testing [facility] Start: 2010 Hepatitis B Vaccine (1 of 3 - 19+ 3-dose series) Hepatitis B Vaccine (1 of 3 - 19+ 3-dose series) [facility] Start: 2009 Adult BMI Follow Up Plan Adult BMI Follow Up Plan [facility] Start: 2009 HIV screening HIV Screening [facility] Start: 2003 Depression Screening Depression [facility] Start: 2002 DTaP,Tdap and Td Vaccines (6 - Tdap) DTaP,Tdap and Td Vaccines (6 - Tdap) [facility] Start: 2002 Urine microalbumin profile DTaP,Tdap,Td Vaccine (6 - Tdap) [facility] End: 08-19-2024 ECG COMPLETE ECG COMPLETE ECG Routine Body mass index (BMI) of 50-59.9 in adult (HCC) 1 Occurrences starting 08/20/2023 until 08/19/2024 [facility] Work Phone: Comment on above: 1 Occurrences starti ng 08/20/2023 until 08/19/2024 Patient Education [facility] Work Phone: Patient referral [facility] Work Phone: End: 09-18-2024 US Abdomen RUQ US ABD RIGHT UPPER QUADRANT Radiology Routine Body mass index (BMI) of 50-59.9 in adult ([facility]) 1 Occurrences starting 08/20/2023 until 09/18/2024 [facility] Work Phone: Comment on above: 1 Occurrences starti ng 08/20/2023 until 09/18/2024 End: 09-18-2024 XR Chest PA and Lateral XR CHEST 2V FRONTAL/LAT Radiology Routine Body mass index (BMI) of 50-59.9 in adult (HCC) 1 Occurrences starting 08/20/2023 until 09/18/2024 [facility] Work Phone: Comment on above: 1 Occurrences starti ng 08/20/2023 until 09/18/2024 OS-DYVCD-Uaxuto 310 IVF Work Phone: [facility] NEGATED: Highlighted row has been ruled out! Planned Goals not documented OO-XOPES-Ywzzrm 310 IVF Work Phone: Immunizations Immunization Date Immunization Notes Care Provider [facility] 03-11-2023 influenza virus vacc ine, unspecified formulation Mena CARRILLO Work Phone: [facility] Payers Date Payer Category Payer Self-pay [id number] 2022 Medicaid [id number] 2022 Medicaid [id number] 1991 Unknown [id number] [id number] 3 1991 Unknown [id number] 2.16.840.1.096099.3.579.2.12 86 1991 Unknown [id number] 2.16.840.1.176892.3.579.2.12 86 1991 Unknown [id number] 2.16.840.1.461578.3.579.2.12 86 1991 Unknown [id number] 2.16.840.1.063350.3.579.2.12 86 1991 Unknown [id number] 2.16.840.1.611236.3.579.2.12 59 1991 Unknown [id number] 2.16.840.1.722960.3.579.2.12 59 1991 Unknown [id number] 2.16.840.1.871461.3.579.2.12 59 1991 Unknown [id number] 2.16.840.1.947974.3.579.2.12 59 1991 Unknown [id number] 2.16.840.1.382872.3.579.2.12 59 1991 Unknown [id number] 2.16.840.1.216273.3.579.2.12 59 1991 Unknown [id number] 2.16.840.1.059571.3.579.2.12 59 1959 Medicaid [id number] Private Health Insurance [facility] [id number] Unknown [id number] Unknown Regular Insurance [id number] Unknown [employer] [id number] Unknown Regular Auto/Medical [id number] Unknown [id number] [id number] 1 Unknown [id number] 2.16.840.1.693930.3.579.2.53 1 Unknown [id number] 2.16.840.1.528803.3.579.2.53 1 Unknown [id number] [id number] 1 Social History Date Type Detail Facility Start: 12-02-2021 End: 05-17-2023 Tobacco smoking status NHIS Never smoked tobacco (finding) [facility] Start: 1990 Sex Assigned At Female F [facility] Start: 05-17-2023 End: 08-20-2023 Sex Assigned At [employer] Other Start: 05-17-2023 End: 08-20-2023 Tobacco use and exposure Smokeless tobacco non-user [facility] Work Phone: Start: 08-20-2023 End: 02-23-2024 Alcohol intake Current drinker of alcohol (finding) [facility] Start: 05-17-2023 End: 08-20-2023 History of Social function [facility] National Score (1-100), lower number is lower risk 86 [facility] Start: 08-20-2023 Alcohol Comment occ [facility] Start: 1990 Sex Assigned At Not on file [facility] Start: 08-26-2023 Gender identity Identifies as female gender (finding) [facility] Start: 08-26-2023 Sexual orientation Heterosexual (fin ding) [facility] Start: 09-14-2023 [facility] How often to you hav e [...] Start: 01-19-2024 Alcoholic beverage intake Ex-drinker (finding) [facility] Start: 12-13-2014 Sex Female (finding) [facility] NEGATED: Highlighted row - - [id number] 310 IVF Work Phone: Functional Status Date Assessment Result Facility NEGATED: Highlighted row Functional performance Functional status health issues are not documented Disease [id number]-[id number] 310 IVF Work Phone: Mental Status Date Assessment Result Facility NEGATED: Highlighted row Cognitive function [Interpretation] Cognitive status health issues are not documented Disease [id number] 310 IVF Work Phone: Clinical Notes 01-08-2023 [...] Morbid obesity with BMI of 50.0-59.9, adult ([facility]) Vaginal delivery Social History Tobacco Use Smoking [...] 06/2019 OTHER SURGICAL HISTORY 2020 IUI 07/10/20 [facility] SALPINGECTOMY Left 2011 ectopic REVIEW [...] of: GERARDO Vazquez documented in this encounter [facility] 03-22-2024 History of Presen t illness Narrative [...] 06/2019 OTHER SURGICAL HISTORY 2020 IUI 07/10/20 [facility] SALPINGECTOMY Left 2011 ectopic REVIEW [...] nursing note reviewed. Exam conducted with a central supply clerk present. Vitals: Estimated body mass index is [...] Tacho Menendez DO documented in this encounter [facility] 02-23-2024 History of Presen t illness Narrative [...] Morbid obesity with BMI of 50.0-59.9, adult ([facility]) Vaginal delivery HISTORY PAST MEDICAL HISTORY SOCIAL HISTORY Past Medical History: Diagnosis Date Abdominal pain Breast pain, right Cholelithiasis Encounter for cervical smear to confirm findings of recent normal smear following initial abnormal smear Angel's disease (CMS/HCC) Hypothyroidism (CMS/HCC) Morbid obesity (CMS/HCC) Morbid obesity with BMI of 50.0-59.9, adult ([facility]) Vaginal delivery Social History Tobacco Use Smoking [...] 06/2019 OTHER SURGICAL HISTORY 2020 IUI 07/10/20 [facility] SALPINGECTOMY Left 2011 ectopic REVIEW [...] nursing note reviewed. Exam conducted with a central supply clerk present. Vitals: Estimated body mass index is [...] of: GERARDO Vazquez documented in this encounter [facility] 10-09-2023 Note HNO ID: [id number] Author: LATONIA GREENE, PhD Service: ? Author Type: Psychologist Type: Progress Notes Filed: 10/17/2023 11:09 Note Text: [facility] BARIATRIC SURGERY BEHAVIORAL HEALTH EVALUATION BMI Surgical Pathway Visit type: Psychology Visit DATE OF SERVICE: October 09, 2023 TIME OF SERVICE: 1:00 PM - 2:00 PM COST CENTER: [facility] CPT CODE: - [id number] Virtual Psych Diagnostic Eval BILLING CODE: ENDO PSYL MAIN Jerel DATE OF FIRST SERVICE THIS CYCLE: October 09, 2023 SESSION #: 1 I have communicated my name and active licensure. The patient's identity and physical location (see below) were verified at the time of this visit. Either the patient or their legal labor relations representative has been informed of the risks and benefits of -- and alternatives to -- treatment through a remote evaluation and consents to proceed with the evaluation remotely. This evaluation is NOT intended for forensic, disability or child custody purposes. The patient e-signed a copy of the consent form via [employer] and the [facility] insurance benefits, fees for service, emergency [...] case of emergency and/or disconnection. [address] [place] [address] (Change address in [place], was mother) Alternate Grain Trimmer Bibi Arrieta (Mother) [phone] (Home Phone) Patient identified the following plan to follow in case of emergency: Go to emergency room (nearest is [facility]) or call 911. IDENTIFYING INFORMATION: Ms. Jaleesa [...] pt has l (more content not included)... [facility] 09-22-2023 Telephone encounter Note Can not schedule patient as there is already a patient scheduled for that day and time. Please advise. Thanks Meme Castrejon [facility] 09-22-2023 Telephone encounter Note ----- Message from Anna Ortiz RD sent at 09/17/2023 3:17 PM EDT ----- Regarding: virtual follow up Please schedule for a virtual up 6/ at 1. The patient is aware, no call needed. Thank you! Anna [facility] 09-22-2023 Miscellaneous Notes Can not schedule patient [...] levels, no answer, left vm. Tonya Senior APRN.PALLET RECTIFIER documented in this encounter [facility] 09-17-[address] - 09/17/2023 3:12 PM EDT 1. Read Nutritional Guidelines Section of Your Guide to Surgery by next session [email or web address]://my.[email or web address]/ -/scassets/files/org/bariatric/ [email or web address] [email or web address]?la=en 2. Do not [...] full-liquid diet. Examples: Slim Fast Advanced Nutrition [place] Breakfast Essentials Light Start Drink mixed with [...] Bariatric Multivitamin and Calcium Citrate (total of 7293-2473 mg/day) * take calcium citrate separately from Multivitamin with iron at least 2 hours apart and 4 hours apart from additional calcium www.Coolest Cooler.Adeptence - Bariatric Choice: 4 Complete Multivitamins (chewables) per day Www.bariatricchoice.com - Bariatric Advantage: 2 Multivitamins and 3 Calcium Citrate Chewables per day * take calcium citrate separately from Multivitamin with iron at least 2 hours apart and 4 hours apart from additional calcium Www.bariatricadvantage.Adeptence Start practicing eating slowly, chewing each bite of food 20-30 x per bite, making meals last 20-30 minutes, separatign food and fluids by 30 minutes . Have all meals and snacks at the table with no distractions. Make placemat for reminders; work towards normal sleep/wake pattern Pre-op goal weight: 281 pounds Protein needs: 85 grams per day documented in this encounter [facility] 09-17-2023 Note HNO ID: [id number] Author: ANNA ORTIZ RD Service: ? Author Type: Registered Dietitian Type: Progress Notes Filed: 09/17/2023 15:19 Note Text: [facility] Nutrition Therapy: Virtual Consult - Initial Assessment I have communicated my name and active licensure. The patient?s identity and physical location were verified at the time of this visit. Either the patient or their legal labor relations representative has been informed of the risks [...] Guide to Surgery by next session https://my.[facility].org/ -/scassets/files/org/bariatric/ guides/bmiguideboo [email or web address]?la=en 2. Do not skip [...] Examples: ? Slim Fast Advanced Nutrition ? [place] Breakfast Essentials ?Light Start? Drink mixed with [...] AM, 2 in the PM) www.bariatricfusion.com - [employer]: 1 Bariatric Multivitamin and Calcium Citrate (total of 3158-7283 mg/day) * take calcium citrate separately from Multivitamin with iron at least 2 hours apart and 4 hours apart from additional calcium www.Coolest Cooler.Adeptence - Bariatric Choice: 4 Complete Multivitamins (chewables) [...] and using Phen (more content not included)... [facility] 09-17-2023 History of Presen t illness Narrative The [facility] Nutrition Therapy: Virtual Consult - Initial Assessment I have communicated my name and active licensure. The patient s identity and physical location were verified at the time of this visit. Either the patient or their legal labor relations representative has been informed of the risks [...] Your Guide to Surgery by next session https://my.[facility].org/ -/scassets/files/org/bariatric/ guides/[email or web address] hx?la=en 2. Do not [...] full-liquid diet. Examples: Slim Fast Advanced Nutrition [place] Breakfast Essentials Light Start Drink mixed with [...] AM, 2 in the PM) www.bariatricfusion.com - [employer]: 1 Bariatric Multivitamin and Calcium Citrate (total of 8918-4992 mg/day) * take calcium citrate separately from Multivitamin with iron at least 2 hours apart and 4 hours apart from additional calcium www.Coolest Cooler.Adeptence - Bariatric Choice: 4 Complete Multivitamins (chewables) per day Www.bariatricchoice.com - Bariatric Advantage: 2 Multivitamins and 3 Calcium Citrate Chewables per day * take calcium citrate separately from Multivitamin with iron at least 2 hours apart and 4 hours apart from additional calcium Www.bariatricadvantage.Adeptence Start practicing eating slowly, chewing each bite [...] suggested by 180 Initial weight: 295 lbs. [place] body weight is 155 lbs. Excess body weight is 140 lbs. Goal weight pre-op is 281 lbs. Protein needs are estimated at 85gm (1.2 - protein/kg IBW) Patient meets the National Institutes of Health guidelines for weight loss surgery and has [employer] therefore is required to complete 0 [...] TIME: 2:25 PM documented in this encounter [facility] 09-11-2023 Telephone encounter Note Attempted to call pt, re: hypothyroid and low vitamin d levels, no answer, left vm. Tonya Senior APRN.MERON [facility] 09-01-2023 Note HNO ID: [id number] Author: LATONIA GREENE, PhD Service: ? Author Type: Psychologist Type: Progress Notes Filed: 09/01/2023 13:22 Note Text: [facility] Progress Note 09/01/2023 Billing code: Jerel Patient did not attend, cancel, or reschedule this appointment. Provider left HIPAA compliant voicemail and MyChart message with contact information to reschedule. Latonia Greene, PhD Clinical Psychologist [facility] 09-01-2023 History of Presen t illness Narrative [facility] Progress Note 09/01/2023 Billing code: Jerel Patient did not attend, cancel, or reschedule this appointment. Provider left HIPAA compliant voicemail and MyChart message with contact information to reschedule. Latonia Greene, PhD Clinical Psychologist documented in this encounter [facility] 08-20-2023 Note HNO ID: [id number] Author: TONYA SENIOR APRN.MERON Service: ? Author Type: Nurse Practitioner Type: Progress Notes Filed: 08/20/2023 16:21 Note Text: have communicated my name and active licensure. The patient's identity and physical location were verified at the time of this visit. Either the patient or their legal labor relations representative has been informed of the risks and benefits of -- and alternatives to -- treatment through a remote evaluation and consents to proceed with the evaluation remotely. BMI MEDICAL CONSULT I have communicated my name and active licensure. The patient's identity and physical location were verified at the time of this visit. Either the patient or their legal labor relations representative has been informed of the risks [...] HEMOGLOBIN A1C - (more content not included)... [facility] 08-20-2023 History of Presen t illness Narrative Images from the original note were not included. have communicated my name and active licensure. The patient's identity and physical location were verified at the time of this visit. Either the patient or their legal labor relations representative has been informed of the risks and benefits of -- and alternatives to -- treatment through a remote evaluation and consents to proceed with the evaluation remotely. BMI MEDICAL CONSULT I have communicated my name and active licensure. The patient's identity and physical location were verified at the time of this visit. Either the patient or their legal labor relations representative has been informed of the risks [...] mass index (BMI) of 50-59.9 in adult ([facility]) 08/20/2023 Angel's thyroiditis 08/20/2023 High [...] mass index (BMI) of 50-59.9 in adult ([facility]) - ICD9: V85.43, ICD10: Z68.43 [...] Obesity Medicine Visit documented in this encounter [facility] 06-13-2023 Evaluation note Encounter Date Diagnosis Assessment [...] 8 weeks -Handed patient self referral to [facility] bariat[facility] surgery program -Xttys-yw-qfba A1c December 2022 5.4%-Follow up in clinic in 8 weeksThis note was created with voice recognition software. Please excuse errors in access representative. Jun, Dietary surveillance and counseling (ICD-10 - [...] for a goal of 5% weight reduction. [employer] Other 08-30-2023 Evaluation note* Encounter Date Diagnosis [...] on in the past and denies side hsbkvhk-Qkoap-jd-care A1c today 5.4%-Follow up in clinic in 4 weeksThis note was created with voice recognition software. Please excuse errors in access representative. Dec, Dietary surveillance and counseling (ICD-10 - [...] premade protein drink for breakfast, by plain Icelandic yogurt and flavor yourself with cinnamon or [...] with the patient, and documenting clinical information. [employer] Other Chief complaint+Reason for visit Narrative* Chief Complaint Obesity Reason for Visit Exercise counseling Severe obesity (BMI >= 40) [facility] Work Phone: Chief complaint+Reason for visit Narrative* Chief Complaint Pos test, Cramping, Vaginal bleeding Reason for Visit Exercise counseling Severe obesity (BMI >= 40) [facility] Work Phone: Evaluation noteNo assessment information available [facility] Work Phone: evaluation note* Diagnosis Onset Date Resolution Status Exercise counseling acute Severe obesity (BMI >= 40) delilah kevin [facility] Work Phone: evaluation note* Diagnosis Body mass index (BMI) of 50-59.9 in adult ([facility])- Primary Body Mass Index 50.0-59.9, adult Angel's thyroiditis Chronic lymphocytic thyroiditis High blood cholesterol Pure hypercholesterolemia documented [facility] Diagnosis NO SHOW- Primary documented [facility]* Diagnosis Obesity, Class III, BMI 40-49.9 (morbid obesity) ([facility])- Primary Morbid obesity Dietary counseling Dietary surveillance and counseling documented in this encounter [facility]* Diagnosis Vitamin D deficiency- Primary Unspecified vitamin D deficiency documented [facility]* Diagnosis 25 weeks gestation of Second trimester state, incidental Diabetes mellitus screening Screening for diabetes mellitus size inconsistent with dates H/O premature delivery [facility] Encounter for follow-up ultrasound of anatomy- Primary History of pre-eclampsia in prior , currently with other poor obstetric history History of delivery, currently with history of pre-term labor Obesity affecting in second trimester, unspecified obesity type [facility] Diagnosis Third trimester state, incidental 29 weeks gestation of [facility]* Diagnosis Third trimester state, incidental 31 weeks gestation of H/O premature delivery [facility] general Narrative - Reported* Type Description Date Surgical History adnoidectomy Surgical History gall bladder Surgical History L Fallopian tube removed Hospitalization History See Above [employer] Other Hospital Discharge instructions Additional Instructions You may take xwhr-xek-mejuelo cough and cold medication as needed You may take unvn-sxo-pxeoyvv Tylenol and/or ibuprofen as needed Increase oral fluids Follow-up with family doctor as needed Return to the ER for any acute difficulty breathing high fever vomiting or any other [facility] Work Phone: Hospital Discharge instructions Additional Instructions Nothing into vagina until seen by DESKTOP SUPPORT SPECIALIST May take Tylenol for discomfort Increase oral fluids Follow-up with DESKTOP SUPPORT SPECIALIST Return to the ER for heavy bleeding greater than a pad an hour feeling dizzy lightheaded or any other [facility] Work Phone: Hospital Discharge instructions Additional Instructions Follow-up with your OB in the next week.[facility] Work Phone: InstructionsNot on filedocumented in this encounter [facility] (narrative)* Diagnostic Procedure Only (Routine) - Pending Review Specialty Diagnoses / Procedures Referred By Contac t Referred To Contact US IMAGING Diagnoses Body mass index (BMI) of 50-59.9 in adult (HCC) Procedures US ABD RIGHT UPPER QUADRANT US ABDOMINAL REAL TIME W/IMAGE LIMITED Tonya Senior APRN.PALLET RECTIFIER [address] [id number] Us Imaging [id number] Referral ID Status Reason Start Date Expiration Date Visits Requested Visits Authorized [id number] Pending Review Auto-Generat ed Referral 08/20/2023 09/18/2024 1 1 * Outpatient Procedure (Routine) - Pending Review Specialty Diagnoses / Procedures Referred By Contac t Referred To [facility] Diagnoses Body mass index (BMI) of 50-59.9 in adult (HCC) Procedures ECG COMPLETE ECG ROUTINE ECG W/LEAST 12 LDS W/I&R Tonya Senior APRN.PALLET RECTIFIER [address] [place] [address] [facility] [place] [address] Referral ID Status Reason Start Date Expiration Date Visits Requested Visits Authorized [id number] Pending Review Auto-Generat ed Referral 08/20/2023 08/19/2024 1 1 [facility] Summary Purpose Family History No Family History [...] and content) DATE CREATED AUTHOR 10/31/2017 [facility] DATE CREATED AUTHOR AUTHOR'S ORGANIZ ATION 04/23/2020 [facility] DATE CREATED AUTHOR AUTHOR'S ORGANIZ ATION 08/08/2020 [employer] DATE CREATED AUTHOR AUTHOR'S ORGANIZ ATION 08/22/2020 [facility] DATE CREATED AUTHOR AUTHOR'S ORGANIZ ATION 06/11/2022 [facility] DATE CREATED AUTHOR AUTHOR'S ORGANIZ ATION 09/06/2023 [facility] DATE CREATED AUTHOR AUTHOR'S ORGANIZ ATION 10/03/2023 [facility] DATE CREATED AUTHOR AUTHOR'S ORGANIZ ATION 10/18/2023 [facility] DATE CREATED AUTHOR AUTHOR'S ORGANIZ ATION 01/20/2024 [facility] DATE CREATED AUTHOR AUTHOR'S ORGANIZ ATION 03/19/2024 [facility] DATE CREATED AUTHOR AUTHOR'S ORGANIZ ATION 04/02/2024 [facility] DATE CREATED AUTHOR AUTHOR'S ORGANIZ ATION 04/09/2024 [facility] EPIC Care Teams (unrecognized [...] or prosecute any alcohol or drug abuse patient.[facility] Hospital[facility] the event this information is protected by the Federal Confidentiality of Alcohol and Drug Abuse Patient Records regulations: The Federal rules restrict any use of the information to criminally investigate or prosecute any alcohol or drug abuse patient.[facility] Hospital[facility] the event this information is protected by the Federal Confidentiality of Alcohol and Drug Abuse Patient Records regulations: The Federal rules restrict any use of the information to criminally investigate or prosecute any alcohol or drug abuse patient.[facility] HospitalIn the event this information is protected by the Federal Confidentiality of Alcohol and Drug Abuse Patient Records regulations: The Federal rules restrict any use of the information to criminally investigate or prosecute any alcohol or drug abuse patient.[facility] HospitalIn the event this information is protected by the Federal Confidentiality of Alcohol and Drug Abuse Patient Records regulations: The Federal rules restrict any use of the information to criminally investigate or prosecute any alcohol or drug abuse patient.[facility] Hospital[facility] the event this information is protected by the Federal Confidentiality of Alcohol and Drug Abuse Patient Records regulations: The Federal rules restrict any use of the information to criminally investigate or prosecute any alcohol or drug abuse patient.[facility] FOR RECORDS PERTAINING TO PATIENTS WHO ARE [...] ON THE PRIMARY CLINICAL RECORDS. [facility] [employer] [facility]. provides no warranty or guarantee of the accuracy or completeness of information in this document.
[2024-04-21 20:50] VITALS: BP 131/72; PULSE 93
== END 2024-04-21 21:35 | disposition home or self-care (01) ==
LOC: FBCO 06:08 → FBC 20:43
PROVIDERS: Visit Provider Obstetrics & Gynecology
DX: O26.893 Other specified pregnancy related conditions, third trimester (principal)
CPT/HCPCS: 59025

== ENCOUNTER 2024-04-24 00:12 | Outpatient (OUT) | payer MEDICAID, SELFPAY ==
--- NOTE | 2024-04-24 | US_ITS ---
[address] [address] Patient Name: FABRIZIO PAINTING MRN: [id number] date: 1990 Sex: F Assigned Patient Location: [facility] Current Patient Location: Accession/Order Number: [id number] Exam Date: 04/24/2024 14:25 Report Date: 04/26/2024 07:56 At the request of: HENRY URBAN Procedure: US OB BPP w non-stress EXAMINATION: US OB BPP w non-stress HISTORY: HX PREMATURE DELIVERY Z87.51 COMPARISON: No relevant comparison available. TECHNIQUE: Ultrasound biophysical profile was performed in the radiology department. non-reactive stress testing was performed by nursing staff in the birthing center. FINDINGS: BREATHING MOVEMENTS: 2 GROSS BODY MOVEMENTS: 2 TONE: 2 QUALITATIVE AMNIOTIC FLUID VOLUME: 2 PRESENTATION: CEPHALIC HEART RATE: 152.54 bpm AMNIOTIC FLUID VOLUME: 11.6 cm, largest fluid pocket 3.7 cm GESTATIONAL AGE: 33 weeks 6 days US/US OB BPP w non-stress IMPRESSION: Total biophysical profile score: 8 Electronically authenticated by: GEORGETTE LIANG Date: 04/26/2024 07:56
--- OUTSIDE RECORDS SUMMARY | 2024-04-24 00:15 | XMS_ITS | CCD ---
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 Name Role Phone Agustin Patton Unavailable Unavailable Agustin Patton Unavailable Unavailable Bayron Mccarty Unavailable Unavailable Unavailable Unavailable Unavailable Unavailable Unavailable Unavailable [facility] Primary Care Provider DEMETRIUS To Emergency Provider [phone] DR TACHO MENENDEZ Attending Unavailable DR TACHO MENENDEZ Consulting Unavailable DR TACHO MENENDEZ Admitting Unavailable [facility] Primary Care Provider Anabella [facility] Marychuy E Emergency Provider [phone] Nicholas Michaels Unavailable [facility] Primary Care Provider DO Nicholas Michaels Attending Provider Unavailable Primary Care Provider Unavailabl e Unavailable Primary Care Provider Unavailabl e LATONIA GREENE Attending Unavailable TONYA SENIOR Attending Unavailable [facility] Primary Care Provider Anabella [facility] Marychuy E Emergency Provider [phone] LATONIA GREENE Referring Unavailable LATONIA GREENE Attending Unavailable ANNA ORTIZ Attending Unavailable TONYA SENIOR Referring Unavailable TONYA SENIOR Referring Unavailable TACHO MENENDEZ Referring Unavailable MAKEDA GROSS Attending Unavailable TACHO MENENDEZ Referring Unavailable Unavailable Primary Care Provider Unavailabl e [facility] Primary Care Provider [phone] DEMETRIUS To Emergency Provider Unavailable Primary Care Provider Unavailabl DO Devika Christie Emergency Provider Ck To Attending Unavailable Ck To Admitting Unavailable [facility] Primary Care Unavaila Marychuy Rey Attending Unavailable Marychuy Kyle Admitting Unavailable [facility] Primary Care Unavaila Nicholas Willams Attending Unavailable Nicholas Michaels Admitting Unavailable [facility] Primary Care Unavaila ble [facility] Primary Care Unavaila Devika Hillman [...] mg/ml oral solution (2 sources) Phenothiazine, Uncompetitive E-omskdq-G-aspartate Receptor Antagonist, Sigma-1 Agonist Start: 02-26-2024 take [...] nostril levothyroxine sodium 0.05 mg oral tablet (19 sources) l-Thyroxine Start: 11-18-2023 End: 02-16-2024 take 0.5 tablet by mouth once [...] 7:27pm magnesium oxide 400 mg oral tablet (12 sources) Start: 10-30-2023 End: 10-29-2024 take 1 tablet by mouth once daily magnesium oxide (Mag-Ox) 400 MG tablet Indications: headache in first trimester Take 1 tablet (400 mg) by mouth Daily 30 tablet 11 10/30/2023 10/29/2024 Active [place] (No Known Home Meds) (3 sources) Start: 10-06-2023 [place] (No Kn own Home Meds) Active October 06, 2023 12:00am Start: 06-18-2022 [place] (No Kn own Home Meds) Active June [...] w/FA-DHA ( Gummies) 0.18-25 MG chewable tablet (11 sources) Start: 11-26-19 End: 11-26-19 MV & [...] oral solution (7 sources) alpha-Adrenergic Agonist, Uncompetitive X-bjvevs-H-asparta te Receptor Antagonist, Sigma-1 Agonist Start: 2 [...] 5:42pm Start: 06-13-2023 [facility] Phentermine HCl 37.5 MG 1 tablet before breakfast Orally Once a day for 30 days Jun, Active Start: 01-08-2023 [facility] daily before breakfast Phentermine HCl 37.5 MG 1 tablet before breakfast Orally Once a day for 30 days Dec, Active Start: 06-25-2019 End: 07-28-2020 take 1 tablet by mouth once daily Phentermine (Adipex-P) 37.5 mg Tablet Discontinued 37.5 MG PO Daily 0 June 26, 2019 12:58pm July 28, 2020 7:27pm Eiuwcwyd-Utf-Dd-Fa () 1 mg Tablet (7 sources) Start: 12-31-2020 End: 07-04-2021 take 1 tablet by mouth once Sqyiouih-Aow-Nm-Fa () 1 mg Tablet Discontinued TAB PO December 30, 2020 11:00pm July 04, 2021 9:48am Start: 12-31-2020 End: 07-04-2021 take 1 tablet by mouth once Wuolmnlj-Jps-Iu-F a () 1 mg Tablet Discontinued TAB PO December 31, 2020 12:00am July 04, 2021 10:48am progesterone 100 mg oral capsule (9 sources) Progesterone Start: 07-28-2020 End: 12-31-2020 Progesterone Micronized Discontinued 100 MG VAGINAL Twice daily July 28, 2020 12:00am December 31, 2020 9:55am Start: 06-19-2020 take 1 capsule by mo [facility] twice daily Progesterone Micronized 100 MG Oral [...] UA Negative Negative - 4(70) +++ mg/dL [facility] Blood, UA Negative Negative - 50 Bradley/mcL [facility] Clarity, UA Clear [facility] Color, UA Yellow [facility] Glucose, UA Negative Negative - 1999(110) ++++ mg/dL [facility] Interpretation and review of laboratory results Abnormal [facility] Ketones, UA Negative Negative - 160(16) ++++ mg/dL [facility] Leukocytes, UA Positive Negative - 500+++ Gabby/mcL [facility] Comment on above: small Nitrite, UA Negative Negative - Positive [facility] pH, UA 7 5 - 9 [facility] Protein, UA Negative Negative - 1999(20) ++++ mg/dL [facility] Spec Grav, UA 1.02 1 - 1.03 [facility] Urobilinogen, UA 0.2 0.2 - 12 mg/dL [facility] Urinalysis macro (dipstick) panel (U)on 03-22-2024 Bilirubin, UA Positive Negative - 4(70) +++ mg/dL [facility] Blood, UA Negative Negative - 50 Bradley/mcL [facility] Clarity, UA Clear [facility] Color, UA Yellow [facility] Glucose, UA Negative Negative - 1999(110) ++++ mg/dL [facility] Interpretation and review of laboratory results Normal [facility] Ketones, UA Positive Negative - 160(16) ++++ mg/dL [facility] Leukocytes, UA Positive Negative - 500+++ Gabby/mcL [facility] Nitrite, UA Negative Negative - Positive [facility] pH, UA 7 5 - 9 [facility] Protein, UA Positive Negative - 1999(20) ++++ mg/dL [facility] Spec Grav, UA 1.025 1 - 1.03 [facility] Urobilinogen, UA 1.0 0.2 - 12 mg/dL [facility] ALL CBC WITH AUTO DIFFon BASOPHILS ABSOLUTE AUTO 0 [facility] Basophils/100 WBC (Bld) 0.5 % 0.2 - 2.0 % [facility] Eosinophils/100 WBC (Bld) 2.4 % 0.9 - 7.0 % [facility] Erythrocyte distribution width (RBC) [Ratio] 13.2 % 11.0 - 15.0 % [facility] Hematocrit (Bld) [Volume fraction] 33.2 % Low 36.0 - 48.0 % [facility] Hemoglobin (Bld) [Mass/Vol] 11.1 g/dL Low 12.0 - 16.0 g/dL [facility] IMMATURE GRANULOCYTES ABS AUTO 0.02 [facility] Immature granulocytes/100 WBC (Bld) 0.3 % 0.0 - 0.5 % [facility] Interpretation and review of laboratory results Abnormal [facility] LYMPHOCYTES ABSOLUTE AUTO 2.1 [facility] Lymphocytes/100 WBC (Bld) 32.5 % 20.5 - 60.0 % [facility] MCH (RBC) [Entitic mass] 30.5 pg 26.7 - 34.0 pg [facility] MCHC (RBC) [Mass/Vol] 33.4 g/dL 29.9 - 35.2 g/dL [facility] MCV (RBC) [Entitic vol] 91.2 fL 81.0 - 99.0 fL [facility] MONOCYTES ABSOLUTE AUTO 0.3 [facility] Monocytes/100 WBC (Bld) 4.6 % 1.7 - 12.0 % [facility] NEUTROPHILS ABSOLUTE AUTO 3.9 [facility] Neutrophils/100 WBC (Bld) 59.7 % 43.0 - 75.0 % [facility] Platelet mean volume (Bld) [Entitic vol] 9.3 fL Low 9.5 - 13.5 fL [facility] TBH EO # 0.2 [facility]H PLT 342 [facility] RBC 3.64 Low [facility] WBC 6.6 [facility] BioFire Not Detectedon 03-05 BioFire Not Detected Not detected Normal Not Detecte T [facility] Comment on above: Result Comment: This is a duplicate RP2.1 COVID (PCR) result to be used for statistical tracking purpose only. PERFORMED BY: [place] [address] PATHOLOGIST METHODS AND PROCEDURES ANALYST LION STANLEY M.D. Performed By: #### B IOFIRECOVNOTDE, QS, RESP PANEL UPP. #### [address] COVID-19 Detected/Not Detect edOrdered By: Devika De La Garza on 03-05-2024 SARS-CoV-2 (COVID-19) RNA YANET+non-probe Ql (Nph) Not detected Not Detecte [facility] Comment on above: This is a duplicate RP2.1 COVID (PCR) result to be used for statistical tracking purpose only. ECG 12 lead ECGon 03-05-2024 ECG 12 lead ECG [facility] Main [place] [id number] Electrocardiograph Report Signed Patient: Jaleesa Arrieta MR#: [id number] [birth year] : 1990 Acct:[id number] Age/Sex: 33 / F ADM Date: 03/05/24 Loc: ER Room: Type: [facility] ER Attending Dr: Ordering Provider: Devika De [...] Confirmed by DEVIKA DE LA GARZA DO ([id number]) on 03/06/2024 1:44:25 AM Referred By: Electronically Signed By: DEVIKA DE LA GARZA DO Transcribed By: MUS Signed By Devika De La Garza DO 03/06 0144 Normal [facility] Quick Strepon 03-05-2024 Quick Strep Streptococcus pyogen es Ag [Presence] in Throat by Rapid immunoassay Negative for Group A Strep Antigen Note 1 NOTE 2 Results are those of a screening test. NOTE 3 If clinically indicated please order a culture. NOTE 4 NOTE 5 Reference range = Negative PERFORMED BY: [place] [address] PATHOLOGIST METHODS AND PROCEDURES ANALYST LION STANLEY M.D. Normal [facility] Comment on above: Performed By: #### B IOFIRECOVNOTDE, QS, RESP PANEL UPP. #### [facility] [address] [place] [address] Respiratory (Upper) Panel, P CRon 03-05-2024 Respiratory [...] A H3 Blank Space ------ PERFORMED BY: [place] [address] PATHOLOGIST METHODS AND PROCEDURES ANALYST LION STANLEY M.D. Normal [facility] Comment on above: Performed By: #### B IOFIRECOVNOTDE, QS, RESP PANEL UPP. #### [address] Respiratory pathogens DNA an d RNA panel - Nasopharynx by YANET with non-probe detectionOrdered By: Devika De La Garza on 03-05-2024 Respiratory pathogens DNA and RNA panel YANET+non-probe (Nph) [facility] Streptococcus pyogenes antig en detectionOrdered By: Devika De La Garza on 03-05-2024 S. pyogenes Ag Ql (Unsp spec) [facility] XR chest 1V portableon 03-05 XR chest 1V portable [facility] [place] [address] XRay Report Signed Patient: Jaleesa Arrieta MR#: [id number] [birth year] : 1990 Acct:[id number] Age/Sex: 33 / F ADM Date: 03/05/24 Loc: ER Room: Type: [facility] ER Attending Dr: Copies to: [...] Priscilla Cunningham M.D.03/05/2024 9:34 PM Dictation Location: [place] [address] Transcribed By: LIDA 03/05/242133 Dictated By: Priscilla Cunningham MD 03/05/242130 Signed By: 03/05/242133 Normal [facility] Quick Strepon 02-26-2024 Quick Strep Streptococcus pyogen es Ag [Presence] in Throat by Rapid immunoassay Negative for Group A Strep Antigen Note 1 NOTE 2 Results are those of a screening test. NOTE 3 If clinically indicated please order a culture. NOTE 4 NOTE 5 Reference range = Negative PERFORMED BY: [address] [place] [address] PATHOLOGIST METHODS AND PROCEDURES ANALYST LION STANLEY M.D. Normal [facility] Comment on above: Performed By: #### Q S #### [facility] [address] Streptococcus pyogenes antig en detectionOrdered By: Ck To on 02-26-2024 S. pyogenes Ag Ql (Unsp spec) [facility] Urinalysis macro (dipstick) panel (U)on 02-23-2024 Bilirubin, UA Negative Negative - 4(70) +++ mg/dL [facility] Blood, UA Negative Negative - 50 Bradley/mcL [facility] Clarity, UA Clear [facility] Color, UA Yellow [facility] Glucose, UA Negative Negative - 1999(110) ++++ mg/dL [facility] Interpretation and review of laboratory results Abnormal [facility] Ketones, UA Negative Negative - 160(16) ++++ mg/dL [facility] Leukocytes, UA Positive Negative - 500+++ Gabby/mcL [facility] Comment on above: small Nitrite, UA Negative Negative - Positive [facility] pH, UA 7 5 - 9 [facility] Protein, UA Negative Negative - 1999(20) ++++ mg/dL [facility] Spec Grav, UA 1.02 1 - 1.03 [facility] Urobilinogen, UA 0.2 0.2 - 12 mg/dL [facility] ALL THYROID STIM HORMONEon 0 01-26-2024 TSH Qn 2.645 m[IU]/L [facility] Alanine aminotransferase [En zymatic activity/volume] in Serum or PlasmaOrdered By: Marychuy Kyle on 10-06-2023 ALT [Catalytic activity/Vol] 13 U/L Normal 7-52 [facility] Comment on above: Performed By: #### C BC, CMP, HCGQNT #### [facility] [address] Albumin [Mass/volume] in Ser um or Plasma by Bromocresol green (BCG) dye binding methoOrdered By: Marychuy Bullimore on 10-06-2023 Albumin BCG dye [Mass/Vol] 3.8 g/dL 3.5-5.7 [facility] Alkaline phosphatase [Enzyma tic activity/volume] in Serum or PlasmaOrdered By: Marychuy Bullimore on 10-06-2023 ALP [Catalytic activity/Vol] 61 U/L Normal 34-104 [facility] Comment on above: Performed By: #### C BC, CMP, HCGQNT #### [address] Aspartate aminotransferase [ Enzymatic activity/volume] in Serum or PlasmaOrdered By: Marychuy Bullimore on 10-06-2023 AST [Catalytic activity/Vol] 13 U/L Normal 13-39 [facility] Comment on above: Performed By: #### C BC, CMP, HCGQNT #### [address] Automated basophil %Ordered By: Marychuy Bullimore on 10-06-2023 Basophils/100 WBC (Bld) 0.6 % Normal . [facility] Comment on above: Performed By: #### C BC, CMP, HCGQNT #### [address] Automated basophil countOrde red By: Marychuy Phaniimore on 10-06-2023 Basophils (Bld) [#/Vol] 0.0 10*3/uL Normal 0.0-0.2 [facility] Comment on above: Result Comment: PERF ORMED BY: [place] [address] PATHOLOGIST METHODS AND PROCEDURES ANALYST LION STANLEY M.D. Performed By: #### C BC, CMP, HCGQNT #### [address] Automated blood monocyte cou ntOrdered By: Marychuy Bullimore on 10-06-2023 Monocytes (Bld) [#/Vol] 0.5 10*3/uL Normal 0.0-0.8 [facility] Comment on above: Performed By: #### C BC, CMP, HCGQNT #### [address] Automated eosinophil %Ordere d By: Marychuy Bullimore on 10-06-2023 Eosinophils/100 WBC (Bld) 0.7 % Normal . [facility] Comment on above: Performed By: #### C BC, CMP, HCGQNT #### [address] Automated eosinophil countOr dered By: Marychuy Bullimore on 10-06-2023 Eosinophils (Bld) [#/Vol] 0.1 10*3/uL Normal 0.0-0.45 [facility] Comment on above: Performed By: #### C BC, CMP, HCGQNT #### [address] Automated epithelial cells c ount in urine sediment (number/area)Ordered By: Marychuy Phaniimore on 10-06-2023 Epithelial cells Auto (Urine sed) [#/Area] 3-4 [HPF] 0-2 [facility] Automated monocyte %Ordered By: Marychuy Bullimore on 10-06-2023 Monocytes/100 WBC (Bld) 6.7 % Normal . [facility] Comment on above: Performed By: #### C BC, CMP, HCGQNT #### [facility] [address] [place] [address] Automated neutrophil %Ordere d By: Marychuy Bullimore on 10-06-2023 Neutrophils/100 WBC (Bld) 54.4 % Normal . [facility] Comment on above: Performed By: #### C BC, CMP, HCGQNT #### [address] Bacteria [Presence] in Urine by AutomatedOrdered By: Marychuy Kyle on 10-06-2023 Bacteria Auto Ql (U) None seen [HPF] None Seen [facility] Bilirubin Test strip Ql (U)O rdered By: Marychuy Kyle on 10-06-2023 Bilirubin Ql (U) Negative Negative [facility] Bilirubin.total [Mass/volume ] in Serum or PlasmaOrdered By: Marychuy Bullimore on 10-06-2023 Bilirubin [Mass/Vol] 0.2 mg/dL Low 0.3-1.0 [facility] Comment on above: Performed By: #### C BC, CMP, HCGQNT #### [facility] [address] Calcium [Mass/volume] in Ser um or PlasmaOrdered By: Marychuy Bullimore on 10-06-2023 Calcium [Mass/Vol] 9.4 mg/dL Normal 8.6-10.3 [facility] Comment on above: Performed By: #### C BC, CMP, HCGQNT #### [facility] [address] Carbon dioxide, total [Moles /volume] in Serum or PlasmaOrdered By: Marychuy Bullimore on 10-06-2023 CO2 [Moles/Vol] 25.5 mmol/L Normal 21.0-31.0 [facility] Comment on above: Performed By: #### C BC, CMP, HCGQNT #### [facility] [address] [place] [address] [place] Chloride [Moles/volume] in S sondra or PlasmaOrdered By: Marychuy Bullimore on 10-06-2023 Chloride [Moles/Vol] 105 mmol/L Normal 98-107 [facility] Comment on above: Performed By: #### C BC, CMP, HCGQNT #### [facility] [address] Choriogonadotropin.beta subu nit [Units/volume] in Serum or PlasmaOrdered By: Marychuy Bullimore on 10-06-2023 HCG.beta subunit Qn 2799.00 m[IU]/mL [facility] Comment on above: Approximate Approxim ate hCG Gestational Age Range (mIU/ml) (weeks)0.2-1 5-50 1-2 50-500 2-3 100-5,000 3-4 500-10,000 4-5 1,000-50,000 5-6 10,000-100,000 6-8 15,000-200,000 8-12 10,000-100,000 Color of Urine by AutoOrdere d By: Marychuy Kyle on 10-06-2023 Color (U) Yellow Normal Yellow [facility] Comment on above: Order Comment: NEED MORE SPECIMEN Name Collection Type:: Clean-Voided Midstream Performed By: #### A DDONUAPLUS #### [address] Complete Blood Count Auto Di ffon 10-06-2023 Mean Corpuscular HGB Conc 34.4 g/dL Normal 32.0-35.0 [facility] Comment on above: Performed By: #### C BC, CMP, HCGQNT #### [address] Monocytes/100 WBC (Bld) 17.37 % Normal 0.00-20.00 [facility] Comment on above: Performed By: #### C BC, CMP, HCGQNT #### [address] NRBC% 0.2 /100{WBC} Normal 0-0.5 [facility] Comment on above: Performed By: #### C BC, CMP, HCGQNT #### [address] Comprehensive Metabolic Pane panchito 10-06-2023 Albumin [Mass/Vol] 3.8 g/dL Normal 3.5-5.7 [facility] Comment on above: Performed By: #### C BC, CMP, HCGQNT #### [place] [address] [place] Creatinine Clr Calc Pharmacy 180.48 Normal [facility] Comment on above: Performed By: #### C BC, CMP, HCGQNT #### [place] [address] [place] GFR/1.73 sq M.predicted MDRD (S/P/Bld) [Vol rate/Area] mL/min/{1.73_m2} Normal [facility] Comment on above: Performed By: #### C BC, CMP, HCGQNT #### [facility] [address] Creatinine [Mass/volume] in Serum or PlasmaOrdered By: Marychuy Jeronimosariah on 10-06-2023 Creatinine [Mass/Vol] 0.63 mg/dL Normal 0.60-1.20 [facility] Comment on above: Performed By: #### C BC, CMP, HCGQNT #### [place] [address] [place] Dipstick and Microscopicon 0 10-06-2023 Appearance (U) Clear Normal Clear [facility] Comment on above: Order Comment: NEED MORE SPECIMEN Name Collection Type:: Clean-Voided Midstream Performed By: #### A DDONUAPLUS #### [address] Bacteria,Urine None Seen Normal None Seen [facility] Comment on above: Order Comment: NEED MORE SPECIMEN Name Collection Type:: Clean-Voided Midstream Performed By: #### A DDONUAPLUS #### [address] Bilirubin,Urine Negative Normal Negative [facility] Comment on above: Order Comment: NEED MORE SPECIMEN Name Collection Type:: Clean-Voided Midstream Performed By: #### A DDONUAPLUS #### [address] Glucose Ql (U) Normal Normal Normal [facility] Comment on above: Order Comment: NEED MORE SPECIMEN Name Collection Type:: Clean-Voided Midstream Performed By: #### A DDONUAPLUS #### [place] [address] [place] Hyaline Casts,Urine 0-8 Normal 0-8 [facility] Comment on above: Order Comment: NEED MORE SPECIMEN Name Collection Type:: Clean-Voided Midstream Result Comment: PERF ORMED BY: [place] [address] PATHOLOGIST METHODS AND PROCEDURES ANALYST LION STANLEY M.D. Performed By: #### A DDONUAPLUS #### [facility] [address] [place] [address] [place] Ketones Ql (U) Negative Normal Negative [facility] Comment on above: Order Comment: NEED MORE SPECIMEN Name Collection Type:: Clean-Voided Midstream Performed By: #### A DDONUAPLUS #### [address] Leukocyte esterase Test strip Ql (U) 1+ High Negative [facility] Comment on above: Order Comment: NEED MORE SPECIMEN Name Collection Type:: Clean-Voided Midstream Performed By: #### A DDONUAPLUS #### [place] [address] [place] Nitrite,Urine Negative Normal Negative [facility] Comment on above: Order Comment: NEED MORE SPECIMEN Name Collection Type:: Clean-Voided Midstream Performed By: #### A DDONUAPLUS #### [place] [address] [place] Occult Blood,Urine Negative Normal Negative [facility] Comment on above: Order Comment: NEED MORE SPECIMEN Name Collection Type:: Clean-Voided Midstream Result Comment: PERF ORMED BY: [place] [address] PATHOLOGIST METHODS AND PROCEDURES ANALYST LION STANLEY M.D. Performed By: #### A DDONUAPLUS #### [place] [address] [place] Protein,Urine Negative Normal Negative [facility] Comment on above: Order Comment: NEED MORE SPECIMEN Name Collection Type:: Clean-Voided Midstream Performed By: #### A DDONUAPLUS #### [place] [address] [place] RBC LM.HPF (Urine sed) [#/Area] 0 /[HPF] Normal 0-4 [facility] Comment on above: Order Comment: NEED MORE SPECIMEN Name Collection Type:: Clean-Voided Midstream Performed By: #### A DDONUAPLUS #### [place] [address] [place] Specificy [place],Urine 1.017 Normal 1.001-1.030 [facility] Comment on above: Order Comment: NEED MORE SPECIMEN Name Collection Type:: Clean-Voided Midstream Performed By: #### A DDONUAPLUS #### [address] Squamous Epithelial Cell,Urine 3-4 High 0-2 [facility] Comment on above: Order Comment: NEED MORE SPECIMEN Name Collection Type:: Clean-Voided Midstream Performed By: #### A DDONUAPLUS #### [address] Urobilinogen,Urine Normal Normal Normal [facility] Comment on above: Order Comment: NEED MORE SPECIMEN Name Collection Type:: Clean-Voided Midstream Performed By: #### A DDONUAPLUS #### [address] WBC,Urine 3-4 Normal 0-4 [facility] Comment on above: Order Comment: NEED MORE SPECIMEN Name Collection Type:: Clean-Voided Midstream Performed By: #### A DDONUAPLUS #### [address] Erythrocyte distribution wid th [Ratio] by Automated countOrdered By: Marychuy Kyle on 10-06-2023 Erythrocyte distribution width (RBC) [Ratio] 13.4 % Normal 11.9-15.3 [facility] Comment on above: Performed By: #### C BC, CMP, HCGQNT #### [address] Erythrocytes [#/area] in Uri ne sediment by Automated countOrdered By: Marychuy Bullimore on 10-06-2023 RBC Auto (Urine sed) [#/Area] 0-1 [HPF] 0-4 [facility] Erythrocytes [#/volume] in B lood by Automated countOrdered By: Marychuy Bullimore on 10-06-2023 RBC (Bld) [#/Vol] 4.08 10*6/uL Normal 3.60-5.00 [facility] Comment on above: Performed By: #### C BC, CMP, HCGQNT #### [place] [id number] [place] Glucose [Mass/volume] in Ser um or PlasmaOrdered By: Marychuy Kyle on 10-06-2023 Glucose [Mass/Vol] 100 mg/dL Normal 70-100 [facility] Comment on above: ADA recommended refe rence rangeRandom Glucose Reference Range is dependent on time and content of last meal. Glucose of more than 200 mg/dL in a nonstressed, ambulatory subject supports the diagnosis of Diabetes Mellitus. Result Comment: [place] om Glucose Reference Range is dependent on time and content of last meal. Glucose of more than 200 mg/dL in a nonstressed, ambulatory subject supports the diagnosis of Diabetes Mellitus. ADA recommended reference range Performed By: #### C BC, CMP, HCGQNT #### [place] [id number] [place] HCG,Quantitativeon HCG,Quantitative 2799.00 m[iU]/mL Normal Th e [facility] Comment on above: Result Comment: Appr oximate Approximate hCG Gestational Age Range (mIU/ml) (weeks) 0.2-1 5-50 1-2 50-500 2-3 100-5,000 3-4 500-10,000 4-5 1,000-50,000 5-6 10,000-100,000 6-8 15,000-200,000 8-12 10,000-100,000 PERFORMED BY: [place] [address] PATHOLOGIST METHODS AND PROCEDURES ANALYST LION STANLEY M.D. Performed By: #### C BC, CMP, HCGQNT #### [address] Hematocrit [Volume Fraction] of Blood by Automated countOrdered By: Marychuy Kyle on 10-06-2023 Hematocrit (Bld) [Volume fraction] 36.7 % Normal 34.0-46.4 [facility] Comment on above: Performed By: #### C BC, CMP, HCGQNT #### [address] Hemoglobin [Mass/volume] in BloodOrdered By: Marychuy Kyle on 10-06-2023 Hemoglobin (Bld) [Mass/Vol] 12.6 g/dL Normal 11.8-15.4 [facility] Comment on above: Performed By: #### C BC, CMP, HCGQNT #### [facility] [address] [place] [address] Ketones Auto test strip (U) [Mass/Vol]Ordered By: Marychuy Kyle on 10-06-2023 Ketones (U) [Mass/Vol] Negative Negative [facility] Laboratory - UrinalysisOrder ed By: Marychuy Kyle on 10-06-2023 Hyaline casts LM Ql (Urine sed) 0-8 [LPF] 0-8 [facility] Leukocytes [#/area] in Urine sediment by Automated countOrdered By: Marychuy Kyle on 10-06-2023 WBC Auto (Urine sed) [#/Area] 3-4 [HPF] 0-4 [facility] Leukocytes [#/volume] correc inocencia for nucleated erythrocytes in Blood by Automated counOrdered By: Marychuy Kyle on 10-06-2023 WBC corrected for nucl RBC Auto (Bld) [#/Vol] 7.4 10*3/uL 3.8-11.6 [facility] Leukocytes [#/volume] in Blo od by Automated countOrdered By: Marychuy Kyle on 10-06-2023 WBC (Bld) [#/Vol] 7.4 10*3/uL Normal 3.8-11.6 [facility] Comment on above: Performed By: #### C BC, CMP, HCGQNT #### [facility] [address] [place] [address] [place] Lymphocytes [#/volume] in Bl ood by Automated countOrdered By: Marychuy Kyle on 10-06-2023 Lymphocytes (Bld) [#/Vol] 2.8 10*3/uL Normal 1.00-4.8 [facility] Comment on above: Performed By: #### C BC, CMP, HCGQNT #### [facility] [address] [place] [address] [place] Lymphocytes/100 leukocytes i n Blood by Automated countOrdered By: Marychuy Kyle on 10-06-2023 Lymphocytes/100 WBC (Bld) 37.6 % Normal . [facility] Comment on above: Performed By: #### C BC, CMP, HCGQNT #### [address] MCH [Entitic mass] by Automa inocencia countOrdered By: Marychuy Kyle on 10-06-2023 MCH (RBC) [Entitic mass] 31.0 pg Normal 24.7-34.3 [facility] Comment on above: Performed By: #### C BC, CMP, HCGQNT #### [address] MCHC Auto (RBC) [Mass/Vol]Or dered By: Marychuy Kyle on 10-06-2023 MCHC (RBC) [Mass/Vol] 34.4 g/dL 32.0-35.0 [facility] MCV [Entitic volume] by Auto mated countOrdered By: Marychuy Kyle on 10-06-2023 MCV (RBC) [Entitic vol] 90.1 fL Normal 80-100 [facility] Comment on above: Performed By: #### C BC, CMP, HCGQNT #### [address] Monocyte distribution width [Entitic volume] in Blood by AutomatedOrdered By: Marychuy Kyle on 10-06-2023 Monocyte distribution width Auto (Bld) [Entitic vol] 17.37 % 0.00-20.00 [facility] Neutrophils [#/volume] in Bl ood by Automated countOrdered By: Marychuy Kyle on 10-06-2023 Neutrophils (Bld) [#/Vol] 4.0 10*3/uL Normal 1.8-7.7 [facility] Comment on above: Performed By: #### C BC, CMP, HCGQNT #### [address] Nitrite Test strip Ql (U)Ord ered By: Marychuy Kyle on 10-06-2023 Nitrite Ql (U) Negative Negative [facility] No Panel InformationOrdered By: Marychuy Kyle on 10-06-2023 Estimated GFR (CKD-EPI) > 60.0 mL/Min [facility] Creatinine Clearance (Chem 180.48 [facility] Nucleated erythrocytes [Pres ence] in Blood by Automated countOrdered By: Marychuy Wangore on 10-06-2023 Nucleated RBC Auto Ql (Bld) 0.2 /100{WBC} 0-0.5 [facility] Platelet mean volume [Entiti c volume] in Blood by Automated countOrdered By: Marychuy Wangore on 10-06-2023 Platelet mean volume (Bld) [Entitic vol] 7.5 fL Normal 6.3-10.7 [facility] Comment on above: Performed By: #### C BC, CMP, HCGQNT #### [facility] [address] [place] [address] [place] Platelets [#/volume] in Bloo d by Automated countOrdered By: Marychuy Kyle on 10-06-2023 Platelets (Bld) [#/Vol] 367 10*3/uL Normal 150-450 [facility] Comment on above: Performed By: #### C BC, CMP, HCGQNT #### [facility] [address] Potassium [Moles/volume] in Serum or PlasmaOrdered By: Marychuy Kyle on 10-06-2023 Potassium [Moles/Vol] 4.1 mmol/L Normal 3.5-5.1 [facility] Comment on above: Performed By: #### C BC, CMP, HCGQNT #### [facility] [address] [place] [address] [place] Protein Auto test strip (U) [Mass/Vol]Ordered By: Marychuy Kyle on 10-06-2023 Protein (U) [Mass/Vol] Negative Negative [facility] Protein [Mass/volume] in Ser um or PlasmaOrdered By: Marychuy Kyle on 10-06-2023 Protein [Mass/Vol] 7.4 g/dL Normal 6.4-8.9 [facility] Comment on above: Performed By: #### C BC, CMP, HCGQNT #### [address] Serum globulin measurement b y calculation (mass/volume)Ordered By: Marychuy Bullimore on 10-06-2023 Globulin (S) [Mass/Vol] 3.6 g/dL [facility] Comment on above: Performed By: #### C BC, CMP, HCGQNT #### [address] Serum or plasma albumin/glob ulin mass ratioOrdered By: Marychuy Bullimore on 10-06-2023 Albumin/Globulin [Mass ratio] 1.1 {ratio} [facility] Comment on above: Performed By: #### C BC, CMP, HCGQNT #### [address] Serum or plasma anion gap de terminationOrdered By: Marychuy Bullimore on 10-06-2023 Anion gap [Moles/Vol] 12.6 mmol/L Normal 6.0-15.0 [facility] Comment on above: Performed By: #### C BC, CMP, HCGQNT #### [address] Sodium [Moles/volume] in Ser um or PlasmaOrdered By: Marychuy Bullimore on 10-06-2023 Sodium [Moles/Vol] 139 mmol/L Normal 136-145 [facility] Comment on above: Performed By: #### C BC, CMP, HCGQNT #### [address] Specific gravity Auto test s trip (U) [Rel density]Ordered By: Marychuy Bullimore on 10-06-2023 Specific gravity (U) [Rel density] 1.017 1.001-1.030 [facility] Urea nitrogen [Mass/volume] in Serum or PlasmaOrdered By: Marychuy Bullimore on 10-06-2023 Urea nitrogen [Mass/Vol] 7 mg/dL Normal 7-25 [facility] Comment on above: Performed By: #### C BC, CMP, HCGQNT #### [facility] [address] [place] [address] [place] Urine clarity by refractomet ry automatedOrdered By: Marychuy Kyle on 10-06-2023 Clarity Refractometry automated (U) Clear Clear [facility] Urine glucose measurement by automated test strip (mass/volume)Ordered By: Marychuy Kyle on 10-06-2023 Glucose Auto test strip (U) [Mass/Vol] Normal mg/dL Normal [facility] Urine hemoglobin detection b y automated test stripOrdered By: Marychuy Jeronimoimore on 10-06-2023 Hemoglobin Auto test strip Ql (U) Negative Negative [facility] Urine leukocyte esterase det ection by automated test stripOrdered By: Marychuy Kyle on 10-06-2023 Leukocyte esterase Auto test strip Ql (U) 1+ Negative [facility] Urine pH measurement by auto mated test stripOrdered By: Marychuy Kyle on 10-06-2023 pH (U) 7.0 [pH] Normal 5.0-9.0 [facility] Comment on above: Order Comment: NEED MORE SPECIMEN Name Collection Type:: Clean-Voided Midstream Performed By: #### A DDONUAPLUS #### [facility] [address] Urobilinogen Auto test strip (U) [Mass/Vol]Ordered By: Marychuy Kyle on 10-06-2023 Urobilinogen (U) [Mass/Vol] Normal mg/dL Normal [facility] CNPMerced 09-11-2023 MERONN Telephone (MARTIN) -------- JALEESA ARRIETA ([id number]) 1990 F Date Time Provider Department 09/11/23 TONYA SENIOR During your visit today, we recorded the following information about you: Tonya Senior APRN.MERON 09/11/2023 11:19 AM Signed Attempted to call [...] Date Reviewed: 08/20/2023 Reviewed by: Tonya Senior APRN.MERON - Fully Assessed Reason for Visit: Results [...] Encounter Status:Closed by TONYA SENIOR on 09/23/23 [facility] NICOTINE AND METAB, URon URIN ANABASINE QUANT <5 Normal [facility] Comment on above: Order Comment: Speci men Type: URINE SPECIMEN Ordering Facility: [facility] Address: [address] [place] [address] Performed By: #### U NICOT #### [facility] CLIA [id number] [address] [place] [address] URIN COTININE QUANT <15 Normal [facility] Comment on above: Order Comment: Speci men Type: URINE SPECIMEN Ordering Facility: [facility] Address: [address] [place] [address] Performed By: #### U NICOT #### [facility] CLIA [id number] [address] [place] [address] URIN NICOTINE QUANT <15 Normal [facility] Comment on above: Order Comment: Speci men Type: URINE SPECIMEN Ordering Facility: [facility] Address: [address] [place] [address] Result Comment: INTE RPRETIVE INFORMATION: Nicotine and Metabolites, Urine, Quantitative Methodology: Quantitative Liquid Chromatography-Tandem Mass Spectrometry Positive cutoff: Nicotine 15 ng/mL Cotinine 15 ng/mL 9-TW-Iagbiblv 50 ng/mL Anabasine 5 ng/mL For medical [...] developed and its performance characteristics determined by [employer]. It has not been cleared or approved by the [place] Food and Drug Administration. This test was performed in a CLIA certified laboratory and is intended for clinical purposes. Performed By: [facility] [address] [place] [address] Help Desk Internship: Rex Zuleta MD, PhD [place] Number: [id number] Performed By: #### U NICOT #### [facility] CLIA [id number] [address] [place] [address] URINE 3 [place] COTININE <50 Normal [facility] Comment on above: Order Comment: Speci men Type: URINE SPECIMEN Ordering Facility: [facility] Address: [address] [place] [address] Performed By: #### U NICOT #### [id number] [address] [place] [address] TOXICOLOGY SCREEN, ROUTINE U RINEon 09-08-2023 Amphetamines Confirm (U) [Mass/Vol] Negative Normal Negative [facility] Comment on above: Order Comment: Speci men Type: URINE SPECIMEN Ordering Facility: [facility] Address: [address] [place] [address] Result Comment: Cuto ff threshold at 1000 ng/mL. Performed By: #### U TOX2 #### [facility] CLIA [id number] [address] [place] [address] [place] BARBITURATES, URINE Negative Normal Negative [facility] Comment on above: Order Comment: Speci men Type: URINE SPECIMEN Ordering Facility: [facility] Address: [address] [place] [address] Result Comment: Cuto ff threshold at 200 ng/mL. Performed By: #### U TOX2 #### [facility] CLIA [id number] [address] [place] [address] [place] BENZODIAZEPINES, UR Negative Normal Negative [facility] Comment on above: Order Comment: Speci men Type: URINE SPECIMEN Ordering Facility: [facility] Address: [address] [place] [address] Result Comment: Cuto ff threshold at 200 ng/mL. Performed By: #### U TOX2 #### [facility] CLIA [id number] [address] [place] [address] [place] Cannabinoids Screen Ql (U) Negative Normal Negative [facility] Comment on above: Order Comment: Speci men Type: URINE SPECIMEN Ordering Facility: [facility] Address: [address] [place] [address] Result Comment: Cuto ff threshold at 50 ng/mL. Performed By: #### U TOX2 #### [facility] CLIA [id number] [address] [place] [address] [place] Cocaine Ql (U) Negative Normal Negative [facility] Comment on above: Order Comment: Speci men Type: URINE SPECIMEN Ordering Facility: [facility] Address: [address] [place] [address] Result Comment: Cuto ff threshold at 300 ng/mL. Performed By: #### U TOX2 #### [facility] CLIA [id number] [address] [place] [address] [place] Ethanol (U) [Mass/Vol] <11 Normal <11 [facility] Comment on above: Order Comment: Speci men Type: URINE SPECIMEN Ordering Facility: [facility] Address: [address] [place] [address] Performed By: #### U TOX2 #### [facility] CLIA [id number] [address] [place] [address] [place] Opiates Screen Ql (U) Negative Normal Negative [facility] Comment on above: Order Comment: Speci men Type: URINE SPECIMEN Ordering Facility: [facility] Address: [address] [place] [address] Result Comment: Cuto ff threshold at 300 ng/mL. Performed By: #### U TOX2 #### [facility] CLIA [id number] [address] [place] [address] [place] oxyCODONE cutoff Screen (U) [Mass/Vol] Negative Normal Negative [facility] Comment on above: Order Comment: Speci men Type: URINE SPECIMEN Ordering Facility: [facility] Address: [address] [place] [address] Result Comment: Cuto ff threshold at 100 ng/mL. Performed By: #### U TOX2 #### [facility] CLIA [id number] [address] [place] [address] [place] Phencyclidine Ql (U) Negative Normal Negative [facility] Comment on above: Order Comment: Speci men Type: URINE SPECIMEN Ordering Facility: [facility] Address: [address] [place] [address] Result Comment: Cuto ff threshold at 25 ng/mL. Performed By: #### U TOX2 #### [facility] CLIA [id number] [address] [place] [address] [place] 25(OH)D3 [facility] 25-hydroxyvitamin D3 [Mass/Vol] 11.9 ng/mL Low 31.0-80.0 [facility] Comment on above: Order Comment: Speci men Type: BLOOD SPECIMEN Ordering Facility: [facility] Address: [address] [place] [address] Performed By: #### 2 276-4, 2132-9, 2284-8 #### [facility] CLIA [id number] [address] [place] [address] [place] CBC W Auto Differential pane l (Bld)on 09-05-2023 Basophils (Bld) [#/Vol] 10*3/uL Normal <0.11 [facility] Comment on above: Order Comment: Speci men Type: BLOOD SPECIMEN Ordering Facility: [facility] Address: [address] [place] [address] Performed By: #### 2 276-4, 2132-01, 2283-12 #### [facility] CLIA [id number] [address] [place] [address] [place] Basophils/100 WBC (Bld) 0.3 % Normal [facility] Comment on above: Order Comment: Speci men Type: BLOOD SPECIMEN Ordering Facility: [facility] Address: [address] [place] [address] Performed By: #### 2 276-4, 2132-01, 2283-12 #### [facility] CLIA [id number] [address] [place] [address] [place] Differential cell count method Nom (Bld) Auto Normal [facility] Comment on above: Order Comment: Speci men Type: BLOOD SPECIMEN Ordering Facility: [facility] Address: [address] [place] [address] Performed By: #### 2 276-4, 2132-01, 2283-12 #### [facility] CLIA [id number] [address] [place] [address] [place] Eosinophils (Bld) [#/Vol] 0.09 10*3/uL Normal <0.46 [facility] Comment on above: Order Comment: Speci men Type: BLOOD SPECIMEN Ordering Facility: [facility] Address: [address] [place] [address] Performed By: #### 2 276-4, 2132-01, 2283-12 #### [facility] CLIA [id number] [address] [place], [place] [address] [place] Eosinophils/100 WBC (Bld) 1.3 % Normal [facility] Comment on above: Order Comment: Speci men Type: BLOOD SPECIMEN Ordering Facility: [facility] Address: [address] [place] [address] Performed By: #### 2 276-4, 2132-01, 2283-12 #### [facility] CLIA [id number] [address] [place] [address] [place] Erythrocyte distribution width (RBC) [Ratio] 12.6 % Normal 11.5-15.0 [facility] Comment on above: Order Comment: Speci men Type: BLOOD SPECIMEN Ordering Facility: [facility] Address: [address] [place], [place] [address] Performed By: #### 2 276-4, 9, 2283-12 #### [facility] CLIA [id number] [address] [place], [place] [address] [place] Hematocrit (Bld) [Volume fraction] 38.0 % Normal 36.0-46.0 [facility] Comment on above: Order Comment: Speci men Type: BLOOD SPECIMEN Ordering Facility: [facility] Address: [address] [place] [address] Performed By: #### 2 276-4, 2132-01, 2283-12 #### [facility] CLIA [id number] [address] [place], [place] [address] [place] Hemoglobin (Bld) [Mass/Vol] 12.8 g/dL Normal 11.5-15.5 [facility] Comment on above: Order Comment: Speci men Type: BLOOD SPECIMEN Ordering Facility: [facility] Address: [address] [place] [address] Performed By: #### 2 276-4, 2132-01, 2283-12 #### [facility] CLIA [id number] [address] [place] [address] [place] Immature granulocytes (Bld) [#/Vol] 10*3/uL Normal <0.10 [facility] Comment on above: Order Comment: Speci men Type: BLOOD SPECIMEN Ordering Facility: [facility] Address: [address] [place] [address] Performed By: #### 2 276-4, 2132-01, 2283-12 #### [facility] CLIA [id number] [address] [place], [place] [address] [place] Immature granulocytes/100 WBC (Bld) 0.1 % Normal [facility] Comment on above: Order Comment: Speci men Type: BLOOD SPECIMEN Ordering Facility: [facility] Address: [address] [place] [address] Performed By: #### 2 276-4, 2132-01, 2283-12 #### [facility] CLIA [id number] [address] [place] [address] [place] Lymphocytes (Bld) [#/Vol] 3.49 10*3/uL Normal 1.00-4.00 [facility] Comment on above: Order Comment: Speci men Type: BLOOD SPECIMEN Ordering Facility: [facility] Address: [address] [place] [address] Performed By: #### 2 276-4, 2132-01, 2283-12 #### [facility] CLIA [id number] [address] [place] [address] [place] Lymphocytes/100 WBC (Bld) 48.6 % Normal [facility] Comment on above: Order Comment: Speci men Type: BLOOD SPECIMEN Ordering Facility: [facility] Address: [address] [place] [address] Performed By: #### 2 276-4, 2132-01, 2283-12 #### [facility] CLIA [id number] [address] [place] [address] [place] MCH (RBC) [Entitic mass] 30.0 pg Normal 26.0-34.0 [facility] Comment on above: Order Comment: Speci men Type: BLOOD SPECIMEN Ordering Facility: [facility] Address: [address] [place] [address] Performed By: #### 2 276-4, 2132-01, 2283-12 #### [facility] CLIA [id number] [address] [place] [address] [place] MCHC (RBC) [Mass/Vol] 33.7 g/dL Normal 30.5-36.0 [facility] Comment on above: Order Comment: Speci men Type: BLOOD SPECIMEN Ordering Facility: [facility] Address: [address] [place] [address] Performed By: #### 2 276-4, 2132-01, 2283-12 #### [facility] CLIA [id number] [address] [place] [address] [place] MCV (RBC) [Entitic vol] 89.2 fL Normal 80.0-100.0 [facility] Comment on above: Order Comment: Speci men Type: BLOOD SPECIMEN Ordering Facility: [facility] Address: [address] [place] [address] Performed By: #### 2 276-4, 2132-01, 2283-12 #### [facility] CLIA [id number] [address] [place] [address] [place] Monocytes (Bld) [#/Vol] 0.48 10*3/uL Normal <0.87 [facility] Comment on above: Order Comment: Speci men Type: BLOOD SPECIMEN Ordering Facility: [facility] Address: [address] [place] [address] Performed By: #### 2 276-4, 2132-01, 2283-12 #### [facility] CLIA [id number] [address] [place] [address] [place] Monocytes/100 WBC (Bld) 6.7 % Normal [facility] Comment on above: Order Comment: Speci men Type: BLOOD SPECIMEN Ordering Facility: [facility] Address: [address] [place] [address] Performed By: #### 2 276-4, 2132-01, 2283-12 #### [facility] CLIA [id number] [address] [place], [place] [address] [place] Neutrophils (Bld) [#/Vol] 3.09 10*3/uL Normal 1.45-7.50 [facility] Comment on above: Order Comment: Speci men Type: BLOOD SPECIMEN Ordering Facility: [facility] Address: [address] [place] [address] Performed By: #### 2 276-4, 2132-01, 2283-12 #### [facility] CLIA [id number] [address] [place] [address] [place] Neutrophils/100 WBC (Bld) 43.0 % Normal [facility] Comment on above: Order Comment: Speci men Type: BLOOD SPECIMEN Ordering Facility: [facility] Address: [address] [place] [address] Performed By: #### 2 276-4, 2132-01, 2283-12 #### [facility] CLIA [id number] [address] [place] [address] [place] Nucleated RBC (Bld) [#/Vol] 10*3/uL Normal <0.01 [facility] Comment on above: Order Comment: Speci men Type: BLOOD SPECIMEN Ordering Facility: [facility] Address: [address] [place] [address] Performed By: #### 2 276-4, 2132-01, 2283-12 #### [facility] CLIA [id number] [address] [place] [address] [place] Nucleated RBC/100 WBC (Bld) [Ratio] 0.0 /100 WBC Normal [facility] Comment on above: Order Comment: Speci men Type: BLOOD SPECIMEN Ordering Facility: [facility] Address: [address] [place] [address] Performed By: #### 2 276-4, 2132-01, 2283-12 #### [facility] CLIA [id number] [address] [place] [address] [place] Platelet mean volume (Bld) [Entitic vol] 9.2 fL Normal 9.0-12.7 [facility] Comment on above: Order Comment: Speci men Type: BLOOD SPECIMEN Ordering Facility: [facility] Address: [address] [place] [address] Performed By: #### 2 276-4, 2132-01, 2283-12 #### [facility] CLIA [id number] [address] [place], [place] [address] [place] Platelets (Bld) [#/Vol] 361 10*3/uL Normal 150-400 [facility] Comment on above: Order Comment: Speci men Type: BLOOD SPECIMEN Ordering Facility: [facility] Address: [address] [place] [address] Performed By: #### 2 276-4, 2132-01, 2283-12 #### [facility] CLIA [id number] [address] [place] [address] [place] RBC (Bld) [#/Vol] 4.26 10*6/uL Normal 3.90-5.20 [facility] Comment on above: Order Comment: Speci men Type: BLOOD SPECIMEN Ordering Facility: [facility] Address: [address] [place] [address] Performed By: #### 2 276-4, 2132-01, 2283-12 #### [facility] CLIA [id number] [address] [place] [address] [place] WBC (Bld) [#/Vol] 7.18 10*3/uL Normal 3.70-11.00 [facility] Comment on above: Order Comment: Speci men Type: BLOOD SPECIMEN Ordering Facility: [facility] Address: [address] [place] [address] Performed By: #### 2 276-4, 2132-01, 2283-12 #### [facility] CLIA [id number] [address] [place], [place] [address] [place] Comprehensive metabolic 2000 panelon 09-05-2023 Albumin [Mass/Vol] 4.0 g/dL Normal 3.9-4.9 [facility] Comment on above: Order Comment: Speci men Type: BLOOD SPECIMEN Ordering Facility: [facility] Address: [address] [place] [address] Performed By: #### 2 4323-8 #### [facility] CLIA [id number] [address] [place] [address] ALP [Catalytic activity/Vol] 91 U/L Normal 34-123 [facility] Comment on above: Order Comment: Speci men Type: BLOOD SPECIMEN Ordering Facility: [facility] Address: [address] [place] [address] Performed By: #### 2 4323-8 #### [facility] CLIA [id number] [address] [place] [address] 22313 ALT [Catalytic activity/Vol] 15 U/L Normal 7-38 [facility] Comment on above: Order Comment: Speci men Type: BLOOD SPECIMEN Ordering Facility: [facility] Address: [address] [place] [address] Performed By: #### 2 4323-8 #### [facility] CLIA [id number] [address] [place] [address] Anion gap [Moles/Vol] 10 mmol/L Normal 9-18 [facility] Comment on above: Order Comment: Speci men Type: BLOOD SPECIMEN Ordering Facility: [facility] Address: [address] [place] [address] Performed By: #### 2 4323-8 #### [facility] CLIA [id number] [address] [place] [address] AST [Catalytic activity/Vol] 13 U/L Normal 13-35 [facility] Comment on above: Order Comment: Speci men Type: BLOOD SPECIMEN Ordering Facility: [facility] Address: [address] [place], [place] [address] Performed By: #### 2 4323-8 #### [facility] CLIA [id number] [address] [place] [address] Bilirubin [Mass/Vol] 0.3 mg/dL Normal 0.2-1.3 [facility] Comment on above: Order Comment: Speci men Type: BLOOD SPECIMEN Ordering Facility: [facility] Address: [address] [place] [address] Performed By: #### 2 4323-8 #### [facility] CLIA [id number] [address] [place] [address] Calcium [Mass/Vol] 9.5 mg/dL Normal 8.5-10.2 [facility] Comment on above: Order Comment: Speci men Type: BLOOD SPECIMEN Ordering Facility: [facility] Address: [address] [place], [place] [address] Performed By: #### 2 4323-8 #### [facility] CLIA [id number] [address] [place] [address]42 Chloride [Moles/Vol] 106 mmol/L High 97-105 [facility] Comment on above: Order Comment: Speci men Type: BLOOD SPECIMEN Ordering Facility: [facility] Address: [address] [place], [place] [address] Performed By: #### 2 4323-8 #### [facility] CLIA [id number] [address] [place] [address] 38416 CO2 [Moles/Vol] 26 mmol/L Normal 22-30 [facility] Comment on above: Order Comment: Speci men Type: BLOOD SPECIMEN Ordering Facility: [facility] Address: [address] [place] [address] Performed By: #### 2 4323-8 #### [facility] CLIA [id number] [address] [place] [address]21 Creatinine [Mass/Vol] 0.75 mg/dL Normal 0.58-0.96 [facility] Comment on above: Order Comment: Speci men Type: BLOOD SPECIMEN Ordering Facility: [facility] Address: [address] [place] [address] Performed By: #### 2 4323-8 #### [facility] CLIA [id number] [address] [place] [address]87 Creatinine and Glomerular filtration rate.predicted panel (S/P/Bld) 109 mL/min/1.73m??? Normal >=60 [facility] Comment on above: Order Comment: Laury bradshaw Type: BLOOD SPECIMEN Ordering Facility: [facility] Address: [address] [place] [address] Result Comment: Stephani mated Glomerular Filtration Rate [...] GFR. Performed By: #### 2 4323-8 #### [facility] CLIA [id number] [address] [place] [address]66 Glucose [Mass/Vol] 104 mg/dL High 74-99 [facility] Comment on above: Order Comment: Laury bradshaw Type: BLOOD SPECIMEN Ordering Facility: [facility] Address: [address] [place] [address] Result Comment: The [place] Diabetes Association (ADA) provides guidance for cutoff [...] Standards of Medical Care in Diabetes 2016, [place] Diabetes Association. Diabetes Care. 2016.39(Suppl 1). Performed By: #### 2 4323-8 #### [facility] CLIA [id number] [address] [place] [address] 25880 Potassium [Moles/Vol] 4.2 mmol/L Normal 3.7-5.1 [facility] Comment on above: Order Comment: Speci men Type: BLOOD SPECIMEN Ordering Facility: [facility] Address: [address] [place] [address] Performed By: #### 2 4323-8 #### [facility] CLIA [id number] [address] [place] [address] Protein [Mass/Vol] 7.4 g/dL Normal 6.3-8.0 [facility] Comment on above: Order Comment: Speci men Type: BLOOD SPECIMEN Ordering Facility: [facility] Address: [address] [place] [id number] Performed By: #### 2 4323-8 #### [facility] CLIA [id number] [address] [place] [address]78[address] Sodium [Moles/Vol] 142 mmol/L Normal 136-144 [facility] Comment on above: Order Comment: Speci men Type: BLOOD SPECIMEN Ordering Facility: [facility] Address: [address] [place] [id number] Performed By: #### 2 4323-8 #### [facility] CLIA [id number] [address] [place] [address] 24707 Urea nitrogen [Mass/Vol] 12 mg/dL Normal 7-21 [facility] Comment on above: Order Comment: Speci men Type: BLOOD SPECIMEN Ordering Facility: [facility] Address: [address] [place] [address] Performed By: #### 2 4323-8 #### [facility] CLIA [id number] [address] [place] [address] 31280 Ferritin SerPl-mCncon 2023 Ferritin [Mass/Vol] 86.7 ng/mL Normal 14.7-205.1 [facility] Comment on above: Order Comment: Speci men Type: BLOOD SPECIMEN Ordering Facility: [facility] Address: [address] [place] [address] Performed By: #### 2 276-4, 2132-9, 2284-8 #### [facility] CLIA [id number] [address] [place] [address] [place] Folate SerPl-mCncon 09-05-19 24 Folate [Mass/Vol] 12.0 ng/mL Normal >4.7 [facility] Comment on above: Order Comment: Laury bradshaw Type: BLOOD SPECIMEN Ordering Facility[facility] Address: [address] [place] [address] Performed By: #### 2 276-4, 2-9, 2283-8 #### [facility] CLIA [id number] [address] [place] [address] [place] H. pylori IgG IA Qlon 2023 H. PYLORI IGG, QUAL Negative Normal Negative [facility] Comment on above: Order Comment: Laury bradshaw Type: BLOOD SPECIMEN Ordering Facility: [facility] Address: [address] [place] [address] Result Comment: Cash ot exclude H. pylori infection if the specimen collected 3-4 weeks after onset of symptoms. Performed By: #### 2 276-4, 2-9, 2283-8 #### [facility] CLIA [id number] [address] [place] [address] [place] HbA1c (Bld)on 09-05-2023 Average glucose Estimated from glycated hemoglobin (Bld) [Mass/Vol] 108 mg/dL Normal [facility] Comment on above: Order Comment: Abbii augustine Type: BLOOD SPECIMEN Ordering Facility: [facility] Address: [address] [place] [address] Result Comment: eAG: (Estimated average glucose) is a calculated value from HgbA1c and is customer development representative of the average blood glucose level in the last 2-3 month period. Performed By: #### 5 5454-3 #### [facility] CLIA [id number] [address] [place] [address] [place] HbA1c (Bld) [Mass fraction] 5.4 % Normal 4.3-5.6 [facility] Comment on above: Order Comment: Speci men Type: BLOOD SPECIMEN Ordering Facility: [facility] Address: [address] [place] [address] Result Comment: Amer [place] Diabetes Association guidelines indicate that patients with HgbA1c in the range 5.7-6.4% are at increased risk for development of diabetes, and intervention by lifestyle modification may be beneficial. HgbA1c greater or equal to 6.5% is considered diagnostic of diabetes. Performed By: #### 5 5454-3 #### [facility] CLIA [id number] [address] [place] [address] [place] Iron and Iron binding capaci ty panelon 09-05-2023 Iron [Mass/Vol] 94 ug/dL Normal 41-186 [facility] Comment on above: Order Comment: Speci men Type: BLOOD SPECIMEN Ordering Facility: [facility] Address: [address] [place] [address] Performed By: #### 5 0190-8, 3016-3, 69310-2 #### [facility] CLIA [id number] [address] [place] [address] [place] #### 76206-1 #### [facility] CLIA [id number] [address] [place] [address] [place] [facility] CLIA [id number] [address] [place] [address] 71283 Iron binding capacity [Mass/Vol] 310 ug/dL Normal 232-386 [facility] Comment on above: Order Comment: Speci men Type: BLOOD SPECIMEN Ordering Facility: [facility] Address: [address] [place] [address] Performed By: #### 5 0190-8, 3016-3, 43371-4 #### [facility] CLIA [id number] [address] [place] [address] [place] #### 39061-7 #### [facility] CLIA [id number] [address] [place] [address] [place] [facility] CLIA [id number] [address] [place] [address] 17344 Iron/TIBC [Molar ratio] 30.3 % Normal 15.0-57.0 [facility] Comment on above: Order Comment: Speci men Type: BLOOD SPECIMEN Ordering Facility[facility] Address: [address] [place] [address] Performed By: #### 5 0190-8, 3016-3, 69284-3 #### [facility] CLIA [id number] [address] [place] [address] [place] #### 85033-3 #### [facility] CLIA [id number] [address] [place] [address] [place] [facility] CLIA [id number] [address] [place], [place] [address] Lipid 1996 panelon 4 Cholesterol [Mass/Vol] 179 mg/dL Normal <200 [facility] Comment on above: Order Comment: Speci men Type: BLOOD SPECIMEN Ordering Facility: [facility] Address: [address] [place] [address] Result Comment: <200 mg/dL, Desirable 200-239 mg/dL, Borderline high >239 mg/dL, High Performed By: #### 2 276-4, 2132-01, 2283-12 #### [facility] CLIA [id number] [address] [place] [address] [place] Cholesterol in HDL [Mass/Vol] 45 mg/dL Normal >39 [facility] Comment on above: Order Comment: Speci men Type: BLOOD SPECIMEN Ordering Facility: [facility] Address: [address] [place] [address] Result Comment: 40-5 9 mg/dL, Acceptable >59 mg/dL, High: Negative risk factor for coronary heart disease <40 mg/dL, Low: Positive risk factor for coronary heart disease Performed By: #### 2 276-4, 2132-01, 2283-12 #### [facility] CLIA [id number] [address] [place] [address] [place] Cholesterol in LDL [Mass/Vol] 119 mg/dL High <100 [facility] Comment on above: Order Comment: Speci men Type: BLOOD SPECIMEN Ordering Facility: [facility] Address: [address] [place] [address] Result Comment: <100 mg/dL, Optimal 100-129 mg/dL, Near optimal/above optimal 130-159 mg/dL, Borderline high 160-189 mg/dL, High >189 mg/dL, Very high Secondary prevention optimal LDL Cholesterol levels are recommended to be < 70 mg/dL Performed By: #### 2 276-4, 2132-01, 2283-12 #### [facility] CLIA [id number] [address] [place] [address] [place] Cholesterol in LDL/Cholesterol in HDL [Mass ratio] 2.64 {ratio} High <2.54 [facility] Comment on above: Order Comment: Speci men Type: BLOOD SPECIMEN Ordering Facility: [facility] Address: [address] [place] [address] Result Comment: Belinda degroot: 1. National Cholesterol Education Program ATP III Guideline At-A-Glance Quick Desk Reference: National Heart, Lung, and Blood [place]. National Institutes of Health. 2001: NIH Publication No. 01-3305. 2. An International Atherosclerosis Society position paper: global recommendations for the management of dyslipidemia: executive summary, Atherosclerosis. 2014: 232(2):410-413. Performed By: #### 2 276-4, 2132-01, 2283-12 #### [facility] CLIA [id number] [address] [place] [address] [place] Cholesterol in VLDL [Mass/Vol] 15 mg/dL Normal <30 [facility] Comment on above: Order Comment: Speci men Type: BLOOD SPECIMEN Ordering [facility] Address: [address] [place] [address] Performed By: #### 2 276-4, 2132-01, 2283-12 #### [facility] CLIA [id number] [address] [place] [address] [place] Cholesterol non HDL [Mass/Vol] 134 mg/dL High <130 [facility] Comment on above: Order Comment: Speci men Type: BLOOD SPECIMEN Ordering Facility[facility] Address: [address] [place] [address] Result Comment: <130 mg/dL, Optimal 130-159 mg/dL, Near optimal/above optimal 160-189 mg/dL, Borderline high 190-219 mg/dL, High >219 mg/dL, Very high Secondary prevention optimal non HDL Cholesterol levels are recommended to be <100 mg/dL Performed By: #### 2 276-4, 2132-01, 2283-12 #### [facility] CLIA [id number] [address] [place] [address] [place] Cholesterol.total/Cho lesterol in HDL [Mass ratio] 3.98 {ratio} Normal <5.10 [facility] Comment on above: Order Comment: Speci men Type: BLOOD SPECIMEN Ordering Facility[facility] Address: [address] [place] [address] Performed By: #### 2 276-4, 2132-01, 2283-12 #### [facility] CLIA [id number] [address] [place], [place] [address] [place] FASTING TIME 12 hrs Normal [facility] Comment on above: Order Comment: Speci men Type: BLOOD SPECIMEN Ordering Facility: [facility] Address: [address] [place], [place] [address] Performed By: #### 2 276-4, 2132-01, 2283-12 #### [facility] CLIA [id number] [address] [place] [address] [place] Triglyceride [Mass/Vol] 74 mg/dL Normal <150 [facility] Comment on above: Order Comment: Speci men Type: BLOOD SPECIMEN Ordering Facility[facility] Address: [address] [place], [place] [address] Result Comment: <150 mg/dL, Normal 150-199 mg/dL, Borderline high 200-499 mg/dL, High >499 mg/dL, Very high Performed By: #### 2 276-4, 2132-01, 2283-12 #### [facility] CLIA [id number] [address] [place] [address] [place] NT-proBNP SerPl-mCncon 09-04 Natriuretic peptide.B prohormone N-Terminal [Mass/Vol] 48 pg/mL Normal <125 [facility] Comment on above: Order Comment: Speci augustine Type: BLOOD SPECIMEN Ordering [facility] Address: [address] [place] [address] Performed By: #### 2 276-4, 2132-01, 2283-12 #### [facility] CLIA [id number] [address] [place] [address] [place] TSH SerPl-aCncon 09-05-2023 TSH Qn 6.440 m[IU]/L High 0.270-4.200 [facility] Comment on above: Order Comment: Laury bradshaw Type: BLOOD SPECIMEN Ordering [facility] Address: [address] [place] [address] Result Comment: If t he patient is , TSH reference range varies by gestational period: First Trimester (weeks 9-12): 0.180-2.990 mIU/L Second Trimester: 0.110-3.980 mIU/L Third Trimester: 0.480-4.710 mIU/L Seth Crews et al. A Practical Approach for the Verifications and Determination of Site- and Trimester-Specific Reference Intervals for Thyroid Function tests in . Thyroid, 2019:29:3:412-420. Zhang Ybarra, et al. 2017 Guidelines of the [place] Thyroid Association for the Diagnosis and Management of Thyroid Disease during and the . Thyroid, 2017:27:3:315-389. Performed By: #### 2 276-4, 9, 2283-12 #### [facility] CLIA [id number] [address] [place] [address] [place] VITAMIN B1 (THIAMINE), WHOLE BLOODon 09-05-2023 Thiamine (Bld) [Moles/Vol] 179.2 nmol/L Normal 84.3-213.3 [facility] Comment on above: Order Comment: Speci augustine Type: BLOOD SPECIMEN [facility] Address: [address] [place] [address] Result Comment: This assay measures the concentration of thiamine diphosphate (TDP), the primary active form of vitamin B1. Approximately 90 percent of vitamin B1 present in whole blood is TDP. Thiamine and thiamine monophosphate, which comprise the remaining 10 percent, are not measured. This test was developed and its performance characteristics determined by [facility] [place] ([facility]). It has not been cleared or approved by the FDA. [facility] is regulated under CLIA as qualified to perform high-complexity testing. This test is used for clinical purposes. It should not be regarded as investigational or for research. Performed By: #### B 1WB #### [facility] [place] [id number] [address] [place] [address] [place] Vit B12 SerPl-mCncon 024 Cobalamin (Vitamin B12) [Mass/Vol] 612 pg/mL Normal 232-1245 [facility] Comment on above: Order Comment: Speci men Type: BLOOD SPECIMEN [facility] Address: [address] [place] [address] Performed By: #### 2 276-4, 2132-9, 2284-8 #### [facility] IA [id number] [address] [place] [address] [place] Glucose - FINGER STICKon Glucose [Mass/Vol] 5.4 mg/dL [employer] Other PAP ACOG PANEL 2: 30 to 65on 06-10-2022 . . Normal [facility] Comment on above: Result Comment: Perf ormed at: WB Performed By: #### 4 [id number] #### [facility] [address] [address] [address] Sachin Coates Age Gdln ACOG Testing 30-65 Normal [facility] Comment on above: Performed By: #### 4 [id number] #### [facility] [address] [address] [address] Sachin Coates DIAGNOSIS: Comment Normal [facility] Comment on above: Result Comment: NEGA TIVE FOR INTRAEPITHELIAL LESION OR MALIGNANCY. CELLULAR CHANGES ASSOCIATED WITH INFLAMMATION ARE PRESENT. THIS SPECIMEN WAS RESCREENED PART OF OUR SACK REPAIRER PROGRAM. Performed at: WB Performed By: #### 4 [id number] #### [facility] [address] [place] [address] Dr. Sachin Coates HPV Aptima Negative Normal Negative [facility] Comment on above: Result Comment: This nucleic acid amplification test detects fourteen high-risk HPV types (16,18,31,33,35,39,45,51,52,56,58,59,66,68) without differentiation. Performed at: =G Performed By: #### 4 [id number] #### [facility] [address] [place] [address] Dr. Sachin Coates HPV Genotype Reflex Comment Normal [facility] Comment on above: Result Comment: Crit eria not met, HPV Genotype not performed. Performed at: WB Performed By: #### 4 [id number] #### [facility] [address] [place] [address] Dr. Sachin Coates Methodology: Comment Normal [facility] Comment on above: Result Comment: This liquid based ThinPrep(R) pap test was screened with the use of an image guided system. Performed at: WB Performed By: #### 4 [id number] #### [facility] [address] [place] [address] Dr. Sachin Coates Note: Comment Normal [facility] Comment on above: Result Comment: The Pap smear is a screening test designed to aid in the detection of premalignant and malignant conditions of the uterine cervix. It is not a diagnostic procedure and should not be used as the sole means of detecting cervical cancer. Both false-positive and false-negative reports do occur. . Performed at: WB Performed By: #### 4 [id number] #### [facility] [address] [address] [address] Sachin Coates Performed by: Comment Normal [facility] Comment on above: Result Comment: Peyton Beverly, Supervisor [employer] (ASCP) Performed at: WB Performed By: #### 4 [id number] #### [facility] [address] [address] [address] Sachin Coates QC reviewed by: Comment Normal [facility] Comment on above: Result Comment: Cielo Cochran, Supervisory Supervisor [employer] (ASCP) Performed at: WB Performed By: #### 4 [id number] #### [facility] [address] [address] [address] Sachin Coates Specimen adequacy: Comment Normal [facility] Comment on above: Result Comment: Sati sfactory for evaluation. Endocervical and/or squamous metaplastic cells (endocervical component) are present. Performed at: WB Performed By: #### 4 [id number] #### [facility] [address] [address] [address] Sachin Coates COVID-19 SOFIAOrdered By: Dario To on 12-02-2021 SARS-CoV+SARS-CoV-2 (COVID-19) Ag IA.rapid Ql (Resp) Negative Negative [facility] Comment on above: This is a duplicate Zuleyma SARS Antigen (PAMELLA) result to be used for statistical tracking purpose only. 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 NURSE CALL FROM YESTERDAY aV Stern - 08 Aug 2020 8:36 AM TASK REASSIGNED: Previously Assigned To Fiordaliza Wheeler Madeleine - 08 Aug 2020 8:36 AM TASK IN PROGRESS Va Stern - 08 Aug 2020 8:56 AM TASK REASSIGNED: Previously Assigned To Va Stern Signatures Electronically signed by : RADHA Campos; Aug 08 2020 10:18AM EST (Author) Normal Touchworks PLANT ELECTRICIAN - Procedure Visiton 0 07-10-2020 PLANT ELECTRICIAN - Procedure Visit Chief Complaint IUI Active [...] Touchworks ESTRADIOLon 07-08-2020 ESTRADIOL 186 pg/mL Normal [facility] Comment on above: Result Comment: Estr adiol measurement is performed using the Shruthi J Carlos Access Sensitive Estradiol Immunoassay. Estradiol testing is performed using a different test methodology at [facility] than other [facility]. Direct result comparison should only be made within the same method. REF VALUES EARLY FOLLICULAR 22-115 MID FOLLICULAR 25-115 OVULATORY PEAK 32-517 MID LUTEAL 37-246 POSTMENOPAUSE <15- 25 MALE <15- 32 Performed By: #### G [facility] #### [facility] [address] [place] [address] Estradiol, Serumon E2 [Mass/Vol] 186 pg/mL MG-OBGYN-Ri sm an 310 IVF Work Phone: Comment on above: Estradiol measuremen t is performed using the Shruthi [employer] Access Sensitive Estradiol Immunoassay. Estradiol testing is performed using a different test methodology at [facility] than other [facility]. Direct result comparison should only be made within the same method.REF VALUESEARLY FOLLICULAR 22-115MID FOLLICULAR 25-115OVULATORY PEAK 32-517MID LUTEAL 37-246POSTMENOPAUSE <15- 25MALE <15- 32 LUTEINIZING HORMONEon 2020 LUTEINIZING HORMONE 9.5 IU/L Normal [facility] Comment on above: Result Comment: Lute inizing Hormone [LH] is performed using the Shruthi [employer] Access Immunoassay. LH testing is performed using a different test methodology at [facility] than other [facility]. Direct result comparison should only be made within the same method. REF VALUES FOLLICULAR PHASE 1.5-10.0 MID-CYCLE 13.0-72.0 LUTEAL PHASE 0.5-13.0 MENOPAUSE 15.0-65.0 PREPUBERTY 0- 3.0 CHILDREN 0- 6.0 ADULT MALE 1.0- 9.0 Performed By: #### G CCHA #### [facility] [address] [place] [address] Luteinizing Hormone, Serumon 07-08-2020 Lutropin Qn 9.5 {IU/L} RO-ZFWGP-Afpt an 310 IVF Work Phone: Comment on above: Luteinizing Hormone [LH] is performed using the Shruthi Y[employer] Access Immunoassay. LH testing is performed using a different test methodology at [facility] than other [facility]. Direct result comparison should only be made within the same method.REF VALUESFOLLICULAR PHASE 1.5-10.0MID-CYCLE 13.0-72.0LUTEAL PHASE 0.5-13.0MENOPAUSE 15.0-65.0PREPUBERTY 0- 3.0CHILDREN 0- 6.0ADULT MALE 1.0- 9.0 TYPE + SCREENon 07-06-2020 ABO TYPE A Normal [facility] Comment on above: Performed By: #### T +S #### [facility] [address] [place] [address] RH TYPE Positive Normal [facility] Comment on above: Performed By: #### T +S #### [facility] [address] [place] [address] ESTRADIOLon 07-05-2020 ESTRADIOL 58 pg/mL Normal [facility] Comment on above: Result Comment: Estr adiol measurement is performed using the Shruthi [employer] Access Sensitive Estradiol Immunoassay. Estradiol testing is performed using a different test methodology at [facility] than other [facility]. Direct result comparison should only be made within the same method. REF VALUES EARLY FOLLICULAR 22-115 MID FOLLICULAR 25-115 OVULATORY PEAK 32-517 MID LUTEAL 37-246 POSTMENOPAUSE <15- 25 MALE <15- 32 Performed By: #### G CCHA #### [facility] [address] [place] [address] Estradiol, Serumon E2 [Mass/Vol] 58 pg/mL MG-OBGYN-Ri sm an 310 IVF Work Phone: Comment on above: Estradiol measuremen t is performed using the Shruthi [employer] Access Sensitive Estradiol Immunoassay. Estradiol testing is performed using a different test methodology at [facility] than other [facility]. Direct result comparison should only be made within the same method.REF VALUESEARLY FOLLICULAR 22-115MID FOLLICULAR 25-115OVULATORY PEAK 32-517MID LUTEAL 37-246POSTMENOPAUSE <15- 25MALE <15- 32 Hematologyon 07-05-2020 ABO group Nom (Bld) A MG-PIPE STRIPPER-Rism an 310 IVF Work Phone: Blood group antibody screen Ql Negative LX-KFKTB-Vdpd an 310 IVF Work Phone: Rh immune globulin screen (Bld) [Interp] Positive MG-OBGYN-R ism an 310 IVF Work Phone: LUTEINIZING HORMONEon 2020 LUTEINIZING HORMONE 9.2 IU/L Normal [facility] Comment on above: Result Comment: Lute inizing Hormone [LH] is performed using the Shruthi Y[employer] Access Immunoassay. LH testing is performed using a different test methodology at [facility] than other [facility]. Direct result comparison should only be made within the same method. REF VALUES FOLLICULAR PHASE 1.5-10.0 MID-CYCLE 13.0-72.0 LUTEAL PHASE 0.5-13.0 MENOPAUSE 15.0-65.0 PREPUBERTY 0- 3.0 CHILDREN 0- 6.0 ADULT MALE 1.0- 9.0 Performed By: #### L H #### [facility] [address] [place] [address] Luteinizing Hormone, Serumon 07-05-2020 Lutropin Qn 9.2 {IU/L} CC-NZDTV-Fkun an 310 IVF Work Phone: Comment on above: Luteinizing Hormone [LH] is performed using the Shruthi Y[employer] Access Immunoassay. LH testing is performed using a different test methodology at [facility] than other [facility]. Direct result comparison should only be made within the same method.REF VALUESFOLLICULAR PHASE 1.5-10.0MID-CYCLE 13.0-72.0LUTEAL PHASE 0.5-13.0MENOPAUSE 15.0-65.0PREPUBERTY 0- 3.0CHILDREN 0- 6.0ADULT MALE 1.0- 9.0 PLANT ELECTRICIAN - Office Visiton 02 PLANT ELECTRICIAN - Office Visit Diagnoses/Problems Assessed Morbid obesity [...] MD [facility] [phone] [place] [phone] Cable 1 Amended By: Bayron Mccarty; Jun 19 2020 10:16 AM KalynviMendez Jaleesa is a 30-year-old female who desires [...] MD [facility] [phone] [place] [phone] Cable Appointment Duration:. 25 minutes; greater than half of the time was spent on counseling. 1 Amended By: Bayron Mccarty; Jun 19 2020 10:16 AM ESTChief Complaint follow up History of Present Zyomqpf2206/19/2020 9:30AM JALEESA ARRIETA , 30 year is contacted for an (audio-visual, or audio only) Telehealth visit. Today's visit was provided through telemedicine conferencing: Using Jag.ag platform. Consent: The concept of telemedicine? has [...] is a telehealth appointment Results/Data HCG, Beta Izhzdsvkzcin95Ugd1491 11:58Bayron Stroud Test NameResultFlagReference HCG, Beta Quantitative<2 mIU/mL Low-level [...] performed using a different test methodology at [facility] than other [facility]. Direct result comparison should only be made within the same method. REF VALUES NON FEMALE <5 MALES <5 Progesterone, Ecmks58Hzu3664 11:58Bayron Stroud Test NameResultFlagReference Progesterone, Serum10.5 ng/mL REF VALUES MALE <0.3- 1.2 FOLLICULAR PHASE <0.3- 1.4 LUTEAL PHASE 3.3-25.6 MID-LUTEAL PHASE 4.4-28.0 POSTMENOPAUSAL <0.3- 0.7 FEMALES: 1ST TRIMESTER 11.2- 90.0 2ND TRIMESTER 25.6- 89.4 3RD TRIMESTER 48.4-422.5 . Patients receiving DHEA-S supplements may show false elevation of progesterone for results near 1.0 ng/mL. Contact laboratory at [phone] if alternative testing is needed. CMV IgG and IgM [id number] 11:58AMBayron Mccarty Test NameResultFlagReference CMV IgG AntibodyREACTIVEASee Below Reference Range: NONREACTIVE CMV IGM [id number] 11:58AMBayron Mccarty Test NameResultFlagReference CMV IGM AB<30.00 [...] testing in two or more weeks. Xray Nhvhqrnbrltynuedisv48Bxl 2020 12:00AMBayron Mccarty [Mar 28, 2020 9:43AM Bayron Mccarty] Reason: Unspecified for Xray Hysterosalpingogram Test NameResultFlagReference Xray Hysterosalpingogram Please click on the link to view the study images Anti Mullerian [id number] 12:03PMBayron Mccarty Test NameResultFlagReference Anti Mullerian Hormone6.36 ng/mL For assays employing antibodies, the possibility exists for interference by heterophile antibodies in the samples.1 1.Oswald Brunner Interferences in Immunoassays - still a threat. Clin. Chem. 2000; 46: 6069-8461. This test was developed and its performance characteristics determined by [employer]. It has not been cleared or approved by the Food and Drug Administration. Reference Range: Females 26 - 30y: 1.03 - 11.10 Median 4.20 AMH concentrations of >= 1.06 ng/mL is correlated with a better response to ovarian stimulation, produced more retrievable oocytes and higher odds of live according to Carey et al. Fertility and Sterility. 2010: 94:4079-8617. The current AMH test method correlates with [...] exclude an AMH-secreting ovarian tumor. Rubella IgG Azrdkzvf67Ekb9262 12:03PMBayron Mccarty Test NameResultFlagReference Rubella IgG AntibodyPOSITIVE [...] TSH WITH REFLEX TO FREE T4 IF [id number] 12:03PMBayron Mccarty Test NameResultFlagReference Thyroid Stimulating Hormone, Serum2.17 mIU/LSee Below Reference Range: 0.44 - 3.98 TSH testing is performed using different testing methodology at [facility] than at other [facility]. Direct result comparisons should only be made within the same method. Varicella Zoster IgG Hjtyudjh84Xlp5575 12:03PMYuniorBayron polanco Test NameResultFlagReference Varicella Zoster IgG AntibodyNegativeNEGATIVE SOURCE: [...] altered results in serological assays. Vitamin D 25-Qhadzjp03Msj6733 12:03PMBibianaBayron Test NameResultFlagReference Vitamin D 25-Hydroxy, Level17 ng/mLA . DEFICIENCY: < 20 NG/ML INSUFFICIENCY: 20-29 NG/ML SUFFICIENCY: 30-100 NG/ML THIS ASSAY ACCURATELY QUANTIFIES THE SUM OF VITAMIN D3, 25-HYDROXY AND VIT D2,25-HYDROXY. { 17-Hydroxyprogesterone, [id number] 12:03ShiraBayron Test NameResultFlagReference 17-Hydroxyprogesterone, Serum33 ng/dL Unable to [...] Endocrinol Metab. 1991;73:674-686; J Clin Endocrinol Metab. 1989;69;1711-9150; J Clin Endocrinol Metab. 1994;78:226-270. Pediatr Res 1988;23:525-529. MedLinePlus (accessed 10/25/13). This test was developed and its analytical performance characteristics have been determined by [employer] [place], [place]. It has not been cleared or approved by the U.S. Food and Drug Administration. This assay has been validated pursuant to the CLIA regulations and is used for clinical purposes. DHEA Sulfate, [id number] 12:03PMBibianaBayron Test NameResultFlagReference DHEA Sulfate, Iivse849 ug/dL65 - 395 MATURITY-BASED REFERENCE RANGES: PUBERTAL [...] laboratory for further information. Testosterone Free + Ocxkh32Ntt9313 12:03Bibiana Bayron Test NameResultFlagReference Testosterone, Total63 ng/dLH2-45 For additional information, please refer to http://education.WiziShop/faq/ TotalTestosteroneLCMSMSF AQ165 (This link is being provided for informational/ educational purposes only.) This test was developed and its analytical performance characteristics have been determined by [employer] [place], [place]. It has not been cleared or approved by the U.S. Food and Drug Administration. This assay has been validated pursuant to the CLIA regulations and is used for clinical purposes. Testosterone, Free Serum8.8 pg/mLH0.1-6.4 This test was developed and its analytical performance characteristics have been determined by [employer] [place], [place]. It has not been cleared or approved by the U.S. Food and Drug Administration. This assay has been validated pursuant to the CLIA regulations and is used for clinical purposes. Hemoglobin [id number] 12:03PMBibiana Bayron Test NameResultFlagReference Hemoglobin A1C, Level5.5 % Diagnosis of Diabetes-Adults Non-Diabetic: < or = 5.6% Increased risk for developing diabetes: 5.7-6.4% Diagnostic of diabetes: > or = 6.5% . Monitoring of Diabetes Age (y) Therapeutic Goal (%) Adults: >18 <7.0 Pediatrics: 13-18 <7.5 7-12 <8.0 0- 6 7.5-8.5 [place] [employer]. Diabetes Care 33(S1), May 2009. Estimated Average Wssaxde001 MG/DL GC + Chlamydia By Amplified Cueucbzkz73Ijg3243 12:03PMBayron Mccarty Test NameResultFlagReference N.GONORRHEA,AMPLIFIEDNEG ATIVENegative SOURCE: Urine Chlamydia Trach, AmplifiedNEGATIVENegativ e Hepatitis B Surface [id number] 12:03PMBayron Mccarty Test NameResultFlagReference Hep.B Surface AgNONREACTIVESee Below Reference Range: NONREACTIVE Biotin interference may cause falsely decreased results. Patients taking a Biotin dose of up to 5 mg/day should refrain from taking Biotin for 24 hours before sample collection. Providers may contact their local laboratory for further information. Hepatitis C Antibody [id number] 12:03PMBayron Mccarty Test NameResultFlagReference Hepatitis C-AntibodyNONREACTIVESee Below Reference Range: NONREACTIVE Results from patients taking biotin supplements or receiving high-dose biotin therapy should be interpreted with caution due to possible interference with this test. Providers may contact their local laboratory for further information. HIV 1/2 ANTIGEN/ANTIBODY SCREEN WITH REFLEX TO [id number] 12:03PMBayron Mccarty NameResultReference HIV 1/2 AG/AB SCREENNONREACTIVESee Below Reference Range: NONREACTIVE HIV Ag/Ab screen is performed using the Siemens [employer] HIV Ag/Ab Combo assay which detects the presence of HIV p24 antigen as well as antibodies to HIV-1 (Group M and O) and HIV-2. SYPHILIS SCREENING WITH [id number] 12:03PMBayron Mccarty NameResultFlagRefereoneliae SYPHILIS TOTAL ANTIBODYNONREACTIVESee Below SOURCE: Reference Range: NONREACTIVE No significant level of Treponema pallidum antibody detected. Repeat testing in 2 to 4 weeks may be considered if early infection or incubating syphilis infection is suspected. Signatures Electronically signed by : Bayron Mccarty MD; Jun 19 2020 10:16AM EST (Author) Normal Touchworks CMV IGM ABon 04-20-2020 CMV IGM AB <30.00 Normal [facility] Comment on above: Result Comment: REFE RENCE [...] weeks. Performed By: #### C MVM2 #### [email or web address] [address] [place] [phone] CMV IGG AND IGM ABon 020 CMV IGG AB REACTIVE Abnormal NONREACTIVE [facility] Comment on above: Performed By: #### C MV2 #### [facility] [address] [place] [address] PROGESTERONEon 04-16-2020 PROGESTERONE 10.5 ng/mL Normal [facility] Comment on above: Result Comment: REF VALUES MALE <0.3- 1.2 FOLLICULAR PHASE <0.3- 1.4 LUTEAL PHASE 3.3-25.6 MID-LUTEAL PHASE 4.4-28.0 POSTMENOPAUSAL <0.3- 0.7 FEMALES: 1ST TRIMESTER 11.2- 90.0 2ND TRIMESTER 25.6- 89.4 3RD TRIMESTER 48.4-422.5 . Patients receiving DHEA-S supplements may show false elevation of progesterone for results near 1.0 ng/mL. Contact laboratory at [phone] if alternative testing is needed. Performed By: #### P BOBBY #### [facility] [address] [place] [address] HCG,BETA-QUANTITATIVEon HCG,BETA-QUANTITATIVE <2 Normal [facility] Comment on above: Result Comment: Low- level [...] HCG measurement is performed using the Shruthi [place] Access Immunoassay which detects intact HCG and free beta HCG subunit. This test is not indicated for use as a tumor marker. HCG testing is performed using a different test methodology at [facility] than other [facility]. Direct result comparison should only be made within the same method. REF VALUES NON FEMALE <5 MALES <5 Performed By: #### H CGQU #### [address] [phone] PLANT ELECTRICIAN - Office Visiton PLANT ELECTRICIAN - Office Visit Chief Complaint An interactive [...] test results. Roby JEWELL. History of Present Pifrsbp1204/14/2020 9:30AM JALEESA PEREZON , 30 year is contacted for an (audio-visual, or audio only) Telehealth visit. Today's visit was provided through telemedicine conferencing: Using Jag.ag platform. Consent: The concept of telemedicine? has [...] in today's encounter visit: Bayron Mccarty MD AMRIANA Lazcano is a 30-year-old female who is here today in follow-up of fertility testing. This patient desires to proceed with single-parent procreation with donor sperm. She has a history of oligomenorrhea and obesity. Work-up to date is as seen below: HSG shows a normal cavity and patent right fallopian tube. The left fallopian tube was surgically absent. Seen by Dr. Maradiaga with [facility], please see his recommendations. Patient was found [...] 25 MCG (1000 UT) Oral Tablet; Therapy: [id number] to Recorded Dispense: 0 Days ; #: Sufficient Tablet; Refill: 0; KEVIN = N; Record; Last Updated By: Breezy Jasso; 2020 1:15:24 PM Vitals Vital Signs Recorded: 85Gbz1157 09:08AM Height5 ft 6 in Xnggrz397 lb BMI Iqldjsbezs02.81 BSA Calculated2.34 QFU55Zht6492 Gravida1 Para0 Pain Scale0 Physical Exam This is a telehealth appointment Results/Data Anti Mullerian Wwjgpjf43Jcg3856 12:03PMBayron Mccarty Test NameResultFlagReference Anti Mullerian Hormone6.36 ng/mL For assays employing antibodies, the possibility exists for interference by heterophile antibodies in the samples.1 1.Oswald Crews. Interferences in Immunoassays - still a threat. Clin. Chem. 2000; 46: 7123-2286. This test was developed and its performance characteristics determined by [employer]. It has not been cleared or approved by the Food and Drug Administration. Reference Range: Females 26 - 30y: 1.03 - 11.10 Median 4.20 AMH concentrations of >= 1.06 ng/mL is correlated with a better response to ovarian stimulation, produced more retrievable oocytes and higher odds of live according to Gleicher et al. Fertility and Sterility. 2010: 94:0078-6868. The current AMH test method correlates with [...] exclude an AMH-secreting ovarian tumor. Anti Mullerian [id number] 12:03PMBayron Mccarty Test NameResultFlagReference Anti Mullerian Hormone6.36 ng/mL For assays employing antibodies, the possibility exists for interference by heterophile antibodies in the samples.1 1.Oswald Crews. Interferences in Immunoassays - still a threat. Clin. Chem. 2000; 46: 8176-0526. This test was developed and its performance characteristics determined by [employer]. It has not been cleared or approved by the Food and Drug Administration. Reference Range: Females 26 - 30y: 1.03 - 11.10 Median 4.20 AMH concentrations of >= 1.06 ng/mL is correlated with a better response to ovarian stimulation, produced more retrievable oocytes and higher odds of live according to Gleicher et al. Fertility and Sterility. 2010: 94:2562-8309. The current AMH test method correlates with [...] exclude an AMH-secreting ovarian tumor. Rubella IgG Aibsruvk94Hro3390 12:03PMBibiana Bayron Test NameResultFlagReference Rubella IgG AntibodyPOSITIVE [...] TSH WITH REFLEX TO FREE T4 IF [id number] 12:03PMBayron Mccarty Test NameResultFlagReference Thyroid Stimulating Hormone, Serum2.17 mIU/LSee Below Reference Range: 0.44 - 3.98 TSH testing is performed using different testing methodology at [facility] than at other [facility]. Direct result comparisons should only be made within the same method. Varicella Zoster IgG Bjejtvzo15Vjm1342 12:03PMBayron Mccarty Test NameResultFlagReference Varicella Zoster IgG [...] altered results in serological assays. Vitamin D 25-Imukiko53Lzi0403 12:03PMBayron Mccarty Test NameResultFlagReference Vitamin D 25-Hydroxy, Level17 ng/mLA . DEFICIENCY: < 20 NG/ML INSUFFICIENCY: 20-29 NG/ML SUFFICIENCY: 30-100 NG/ML THIS ASSAY ACCURATELY QUANTIFIES THE SUM OF VITAMIN D3, 25-HYDROXY AND VIT D2,25-HYDROXY. { 17-Hydroxyprogesterone, [id number] 12:03PMBayron Mccarty Test NameResultFlagReference 17-Hydroxyprogesterone, Serum33 ng/dL [...] Endocrinol Metab. 1991;73:674-686; J Clin Endocrinol Metab. 1989;69;8143-3508; J Clin Endocrinol Metab. 1994;78:226-270. Pediatr Res 1988;23:525-529. MedLinePlus (accessed 10/25/13). This test was developed and its analytical performance characteristics have been determined by [email or web address] [place], [place]. It has not been cleared or approved by the U.S. Food and Drug Administration. This assay has been validated pursuant to the CLIA regulations and is used for clinical purposes. DHEA Sulfate, Yhqoq15Vpr7276 12:03Bayron Silva Test NameResultFlagReference DHEA Sulfate, Egnhf949 ug/dL65 - 395 MATURITY-BASED REFERENCE RANGES: PUBERTAL [...] laboratory for further information. Testosterone Free + [id number] 12:03PMBibiana Bayron Test NameResultFlagReference Testosterone, Total63 ng/dLH2-45 For additional information, please refer to http://education.WiziShop/faq/ TotalTestosteroneLCMSMSF AQ165 (This link is being provided for informational/ educational purposes only.) This test was developed and its analytical performance characteristics have been determined by [employer] [place], [place]. It has not been cleared or approved by the U.S. Food and Drug Administration. This assay has been validated pursuant to the CLIA regulations and is used for clinical purposes. Testosterone, Free Serum8.8 pg/mLH0.1-6.4 This test was developed and its analytical performance characteristics have been determined by [employer] [place]. It has not been cleared or approved by the U.S. Food and Drug Administration. This assay has been validated pursuant to the CLIA regulations and is used for clinical purposes. Hemoglobin [id number] 12:03PMBibiana Bayron Test NameResultFlagReference Hemoglobin A1C, Level5.5 % Diagnosis of Diabetes-Adults Non-Diabetic: < or = 5.6% Increased risk for developing diabetes: 5.7-6.4% Diagnostic of diabetes: > or = 6.5% . Monitoring of Diabetes Age (y) Therapeutic Goal (%) Adults: >18 <7.0 Pediatrics: 13-18 <7.5 7-12 <8.0 0- 6 7.5-8.5 [place] [employer]. Diabetes Care 33(S1), May 2009. Estimated Average [place] MG/DL GC + Chlamydia By Amplified Pfsajsjth90Nki7738 12:03PMBibiana Bayron Test NameResultFlagReference N.GONORRHEA,AMPLIFIEDNEG ATIVENegative SOURCE: Urine Chlamydia Trach, AmplifiedNEGATIVENegativ e Hepatitis B Surface Obniieg21Dqt5788 12:03PMBayron Mccarty Test NameResultFlagReference Hep.B Surface AgNONREACTIVESee Below Reference Range: NONREACTIVE Biotin interference may cause falsely decreased results. Patients taking a Biotin dose of up to 5 mg/day should refrain from taking Biotin for 24 hours before sample collection. Providers may contact their local laboratory for further information. Hepatitis C Antibody [id number] 12:03PMBayron Mccarty Test NameResultFlagReference Hepatitis C-AntibodyNONREACTIVESee Below Reference Range: NONREACTIVE Results from patients taking biotin supplements or receiving high-dose biotin therapy should be interpreted with caution due to possible interference with this test. Providers may contact their local laboratory for further information. HIV 1/2 ANTIGEN/ANTIBODY SCREEN WITH REFLEX TO [id number] 12:03PMBayron Mccarty Test NameResultFlagReference HIV 1/2 AG/AB SCREENNONREACTIVESee Below Reference Range: NONREACTIVE HIV Ag/Ab screen is performed using the Siemens [employer] HIV Ag/Ab Combo assay which detects the presence of HIV p24 antigen as well as antibodies to HIV-1 (Group M and O) and HIV-2. SYPHILIS SCREENING WITH [id number] 12:03PMBayron Mccarty Test NameResultFlagReference SYPHILIS TOTAL ANTIBODYNONREACTIVESee Below SOURCE: Reference Range: NONREACTIVE No significant level of Treponema pallidum antibody detected. Repeat testing in 2 to 4 weeks may be considered if early infection or incubating syphilis infection is suspected. Diagnoses/Problems Irregular menses (626.4) (N92.6) Morbid obesity (278.01) (E66.01) Orders HCG, Beta Quantitative; Status:Active; Requested for:10Gaj7628; Perform:Lab Services - Lab To Draw (Blood Test); Due:13Jul2020;Ordered; For:Irregular menses; Ordered By:Bayron Mccarty; Progesterone, Serum; Status:Active; Requested for:27Cyv1969; Perform:Lab Services - Lab To Draw (Blood [...] [facility] [phone] [place] [phone] Cable Appointment Duration:. 25 minutes; greater than half [...] MD [facility] [phone] [place] [phone] Cable 1 Amended By: Bayron Mccarty; Apr 14 2020 4:50 PM ESTSignatures Electronically signed by : Bayron Mccarty MD; Apr 14 2020 4:51PM EST (Author) Normal Touchworks PLANT ELECTRICIAN - Procedure Visiton 1 05-28-2019 PLANT ELECTRICIAN - Procedure Visit Chief Complaint pt presents [...] 1 CAPSULE EVERY 12 HOURS DAILY; Therapy: 55Qxu6709 to (Evaluate:94Bwv2075) Requested for: 33Uww7213; Last Rx:[id number] Ordered Rx By: Bayron Mccarty; Dispense: 5 Days ; #:10 Capsule; Refill: 0;For: Fertility testing; KEVIN = N; Verified Transmission to [place] [address]; Msg to Pharmacy: start medication the night before her procedure; Last Updated By: System[employer]; 01/24/2020 12:08:27 PM Vitamin D 25 MCG (1000 UT) Oral Tablet; Therapy: 08Rei4005 to Recorded Dispense: 0 Days ; #: [...] Mar 28 2020 4:10PM EST (Author) Normal [employer] PLANT ELECTRICIAN - Office Visiton 11-0 PLANT ELECTRICIAN - Office Visit Chief Complaint The patient is being seen today at the request of for [facility] Consultation regarding Preconception; SILVIA Patient; Morbid Obesity- [...] is considering single parent procreation. Her usual Silicator with whom she would plan to follow with for care in a future is Dr. Ng in [place]. Active Problems Female infertility (628.9) (N97.9) Fertility [...] 1 CAPSULE EVERY 12 HOURS DAILY; Therapy: 23Xoj0864 to (Evaluate:09Vcj3921) Requested for: 23Jhg3997; Last Rx:[id number] Ordered Rx By: Bayron Mccarty; Dispense: 5 Days ; #:10 Capsule; Refill: 0; For: Fertility testing; KEVIN = N; Verified Transmission to [place] [address]; Msg to Pharmacy: start medication the night before her procedure; Last Updated By: ElhamMy[employer]App; 01/24/2020 12:08:27 PM Vitamin D 25 MCG (1000 UT) Oral Tablet; Therapy: 87Asg0644 to Recorded Dispense: 0 Days ; #: Sufficient Tablet; Refill: 0; KEVIN = N; Record; Last Updated By: Breezy Jasso; 2020 1:15:24 PM Vitals Vital Signs Recorded: 13Mar2020 01:08PM Heart Rate96 Owawxcej037 Tllhdawec34 Height5 ft 6 in Rutulg056 lb BMI Tkoiedgqqe38.91 BSA Calculated2.39 Tobacco Useb) No Fall Screeninga) No falls within the last year [id number] Gravida1 Para0 Pain Scale0 Diagnoses/Problems Morbid obesity [...] consultation of which greater than 50% was vfxh-es-asyw counseling. Weight loss prior to conception is [...] MD; Jun 12 2020 4:50PM EST Normal Touchworks ANTI MULLERIAN HORMONEon ANTI MULLERIAN HORMONE 6.36 ng/mL Normal [facility] Comment on above: Result Comment: For assays employing antibodies, the possibility exists for interference by heterophile antibodies in the samples.1 1.Oswald Brunner Interferences in Immunoassays - still a threat. Clin. Chem. 2000; 46: 4352-3249. This test was developed and its performance characteristics determined by [employer]. It has not been cleared or approved by the Food and Drug Administration. Reference Range: Females 26 - 30y: 1.03 - 11.10 Median 4.20 AMH concentrations of >= 1.06 ng/mL is correlated with a better response to ovarian stimulation, produced more retrievable oocytes and higher odds of live according to Carey et al. Fertility and Sterility. 2010: 94:8388-0426. The current AMH test method correlates with [...] ovarian tumor. Performed By: #### A #### [facility] [place], [place] [id number] 17-HYDROXYPROGESTERONEon 17-HYDROXYPROGESTERON E 33 ng/dL Normal [facility] Comment on above: Result Comment: [...] Endocrinol Metab. 1991;73:674-686; J Clin Endocrinol Metab. 1989;69;2856-1655; J Clin Endocrinol Metab. 1994;78:226-270. Pediatr Res 1988;23:525-529. MedLinePlus (accessed 10/25/13). This test was developed and its analytical performance characteristics have been determined by [employer] [place], [place]. It has not been cleared or approved by the U.S. Food and Drug Administration. This assay has been validated pursuant to the CLIA regulations and is used for clinical purposes. Performed By: #### 1 7OHP #### [email or web address] [address] [place], [place] TESTOST,FREE AND TOTALon TESTOSTERONE TOT.LC/MS/MS 63 ng/dL High 2-45 [facility] Comment on above: Result Comment: For additional information, please refer to http://education.Sun Number/faq/ ErrjuGpmrdyjtzjpeGZOYQXNOM824 (This link is being provided for informational/ educational purposes only.) This test was developed and its analytical performance characteristics have been determined by [employer] [place]. It has not been cleared or approved by the U.S. Food and Drug Administration. This assay has been validated pursuant to the CLIA regulations and is used for clinical purposes. Performed By: #### [facility] #### [facility] [address] [place] [address] TESTOSTERONE,FREE 8.8 pg/mL High 0.1-6.4 [facility] Comment on above: Result Comment: This test was developed and its analytical performance characteristics have been determined by [email or web address] [place], [place]. It has not been cleared or approved by the U.S. Food and Drug Administration. This assay has been validated pursuant to the CLIA regulations and is used for clinical purposes. Performed By: #### [facility] #### [facility] [address] [place] [address] DHEA SULFATEon 01-25-2020 DHEA SULFATE 214 ug/dL Normal 65 - 395 [facility] Comment on above: Result Comment: [...] for further information. Performed By: #### [facility] #### [facility] [address] [place] [address] GC + CHLAMYDIA BY AMPLIFIED DETECTIONon 01-25-2020 CHLAMYDIA TRACH.,AMPLIFIED Negative Normal Negative [facility] Comment on above: Performed By: #### [facility] #### [facility] [address] [place] [address] N.GONORRHEA,AMPLIFIED Negative Normal Negative [facility] Comment on above: Performed By: #### [facility] #### [facility] [address] [place] [address] HEPATITIS B SURFACE AGon HEP.B SURFACE AG NONREACTIVE Normal NONREACTIVE [facility] Comment on above: Result Comment: Biot in interference may cause falsely decreased results. Patients taking a Biotin dose of up to 5 mg/day should refrain from taking Biotin for 24 hours before sample collection. Providers may contact their local laboratory for further information. Performed By: #### G CCHA #### [facility] [address] [place] [address] HEPATITIS C ABon 01-25-2020 HEPATITIS C AB NONREACTIVE Normal NONREACTIVE [facility] Comment on above: Result Comment: Resu lts from patients taking biotin supplements or receiving high-dose biotin therapy should be interpreted with caution due to possible interference with this test. Providers may contact their local laboratory for further information. Performed By: #### H CVAB #### [facility] [address] [place] [address] HIV ANTIGEN/ANTIBODY SCREENo n 01-25-2020 HIV AG/AB SCREEN NONREACTIVE Normal NONREACTIVE [facility] Comment on above: Result Comment: HIV Ag/Ab screen is performed using the [employer] HIV Ag/Ab Combo assay which detects the presence of HIV p24 antigen as well as antibodies to HIV-1 (Group M and O) and HIV-2. Performed By: #### G CCHA #### [facility] [address] [place] [address] RUBELLA IGG ABon 01-25-2020 RUBELLA IGG AB Positive Normal [facility] Comment on above: Result Comment: INTE RPRETATIVE [...] assays. Performed By: #### R UBIG #### [facility] [address] [place] [address] SYPHILIS SCREENING WITH REFL EXon 01-25-2020 SYPHILIS TOTAL AB NONREACTIVE Normal NONREACTIVE [facility] Comment on above: Result Comment: No s ignificant level of Treponema pallidum antibody detected. Repeat testing in 2 to 4 weeks may be considered if early infection or incubating syphilis infection is suspected. Performed By: #### S YPHR #### [facility] [address] [place] [address] TSH WITH REFLEX TO FREE T4 I F ABNORMALon 01-25-2020 TSH Qn 2.17 m[IU]/L Normal 0.44 - 3.98 [facility] Comment on above: Result Comment: TSH testing is performed using different testing methodology at [facility] than at other [facility]. Direct result comparisons should only be made within the same method. Performed By: #### [facility] #### [facility] [address] [place] [address] VARICELLA ZOSTER IGG ABon VARICELLA ZOSTER IGG AB Negative Normal NEGATIVE [facility] Comment on above: Result Comment: [...] in serological assays. Performed By: #### V AR #### [facility] [address] [place] [address] VITAMIN D, 25-HYDROXYon 01-10 VITAMIN D, 25-HYDROXY 17 ng/mL Abnormal [facility] Comment on above: Result Comment: . DEFICIENCY: < 20 NG/ML INSUFFICIENCY: 20-29 NG/ML SUFFICIENCY: 30-100 NG/ML THIS ASSAY ACCURATELY QUANTIFIES THE SUM OF VITAMIN D3, 25-HYDROXY AND VIT D2,25-HYDROXY. { Performed By: #### [facility] #### [facility] [address] [place] [address] GC + CHLAMYDIA BY AMPLIFIED DETECTIONon 01-24-2020 Lab Specimen Source Urine Normal [facility] Comment on above: Performed By: #### [facility] #### [facility] [address] [place] [address] HEMOGLOBIN A1Con 01-24-2020 HbA1c (Bld) [Mass fraction] 5.5 % Normal [facility] Comment on above: Result Comment: Diag nosis of Diabetes-Adults Non-Diabetic: < or = 5.6% Increased risk for developing diabetes: 5.7-6.4% Diagnostic of diabetes: > or = 6.5% . Monitoring of Diabetes Age (y) Therapeutic Goal (%) Adults: >18 <7.0 Pediatrics: 13-18 <7.5 7-12 <8.0 0- 6 7.5-8.5 [employer] [place]. Diabetes Care 33(S1), May 2009. Performed By: #### H BA1E #### [facility] [address] [place] [address] HbA1c (Bld) [Mass fraction] 111 MG/DL Normal [facility] Comment on above: Performed By: #### H BA1E #### [facility] [address] [place] [address] PLANT ELECTRICIAN - Office Visiton 01-10 PLANT ELECTRICIAN - Office Visit Chief Complaint 29 year [...] is currently incarcerated, and will be in shelter until 2026. She is interested in pursuing fertility testing today, and pending these results would potentially be interested in single-parent procreation with donor sperm. She is not currently sexually active. She has a history of ectopic in 2011, which was treated with laparoscopic left salpingectomy in [facility]. 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 pain RELAY CHECKER HISTORY: STDs: Yes, remote history of gonorrhea [...] PM Vitals Vital Signs Recorded: 24Jan2020 11:13AM Qyeaunheurw74.7 F Heart Oiwh966 Yyqiwaeu103 Jgabghhoh29 Height5 ft 6 in Qkiejf435 lb BMI Zwzriymsea07.13 BSA Calculated2.35 Tobacco Useb) No Fall Screeninga) No falls within the last year [id number] Gravida1 Para0 Pain Scale0 Diagnoses/Problems Female infertility (628.9) (N97.9) Fertility testing (V26.21) (Z31.41) Morbid obesity (278.01) (E66.01) Irregular menses (626.4) (N92.6) Screening for STD (sexually transmitted disease) (V74.5) (Z11.3) *Orders Anti Mullerian Hormone; Status:Active; Requested for:24Jan2020; Perform:Lab Services - Lab To Draw (Non-Blood Test); Due:86Iku9645;Ordered; For:Female infertility, Fertility testing, Irregular menses, Morbid obesity; Ordered By:Bayron Mccarty; Start: Doxycycline Monohydrate 100 MG Oral Capsule; TAKE 1 CAPSULE EVERY 12 HOURS DAILY Rx By: Bayron Mccarty; Dispense: 5 Days ; #:10 Capsule; Refill: 0; For: Fertility testing; KEVIN = N; Verified Transmission to [facility] [place]; Msg to Pharmacy: start medication the night before her procedure; Last Updated By: Cindi Lizarraga; 01/24/2020 12:08:27 PM Maternal Medicine Referral Evaluation and Treatment Evaluate AND Treat Status: Hold For - Scheduling Requested for: 77Nqv7041 Ordered; For: Morbid obesity; Ordered By: Bayron Mccarty Performed: Due: 41Sko4919 17-Hydroxyprogesterone, Serum; Status:Active; Requested for:85Fzd2281; Perform:Lab Services - Lab To Draw (Blood Test); Due:14Lzm8158;Ordered; For:Screening for STD (sexually transmitted disease); Ordered By:Bayron Mccarty; DHEA Sulfate, Serum; Status:Active; Requested for:27Upr9011; Perform:Lab Services - Lab To Draw (Blood Test); Due:20Qny3612;Ordered; For:Screening for STD (sexually transmitted disease); Ordered By:Bayron Mccarty; Hemoglobin A1C; Status:Active; Requested for:23Itg9513; Perform:Lab Services - Lab To Draw (Blood Test); Due:85Apo3849;Ordered; For:Screening for STD (sexually transmitted disease); Ordered By:Bayron Mccarty; Rubella IgG Antibody; Status:Active; Requested for:40Mrw0798; Perform:Lab Services - Lab To Draw (Blood Test); Due:00Ouj0057;Ordered; For:Screening for STD (sexually transmitted disease); Ordered By:Bayron Mccarty; Testosterone Free + Total; Status:Active; Requested for:07Dxe2992; Perform:Lab Services - Lab To Draw (Blood Test); Due:73Mha5750;Ordered; For:Screening for STD (sexually transmitted disease); Ordered By:Bayron Mccarty; TSH WITH REFLEX TO FREE T4 IF ABNORMAL; Status:Active; Requested for:97Jib8504; Perform:Lab Services - Lab To Draw (Blood Test); Due:08Kgd9073;Ordered; For:Screening for STD (sexually transmitted disease); Ordered By:Bayron Mccarty; Ultrasound Pelvis Transvaginal; Status:Hold For - Scheduling; Requested for:87Qio2935; Perform:[facility]; Order Comments:will call with menses to schedule; Due:72Nen4437;Ordered; For:Screening for STD (sexually transmitted disease); Ordered By:Bayron Mccarty; Radiologist to Determine Optimal Study : Y What are the patient's signs and symptoms? : fert testing Varicella Zoster IgG Antibody; Status:Active; Requested for:09Hkj7401; Perform:Lab Services - Lab To Draw (Blood Test); Due:67Nag1801;Ordered; For:Screening for STD (sexually transmitted disease); Ordered By:Bayron Mccarty; Vitamin D 25-Hydroxy; Status:Active; Requested for:96Qty6959; Perform:Lab Services - Lab To Draw (Blood Test); Due:68Ogq6990;Ordered; For:Screening for STD (sexually transmitted disease); Ordered By:Bayron Mccarty; Xray Hysterosalpingogram; Status:Hold For - Scheduling; Requested for:11Smr2858; Perform:[facility]; Order Comments:will call with menses to schedule. schedule between -12. start doxycycline night prior to procedure; Due:71Vzz3954;Ordered; For:Screening for STD (sexually transmitted disease); Ordered By:Bayron Mccarty; Radiologist to Determine Optimal Study : Y What are the patient's signs and symptoms? : fert testing Tobacco Use Screening; Status:Complete; Done: 94Zrp0683 Perform:Not Applicable;Ordered; For:SocHx: Never a smoker; Ordered [...] for Doxycycline sent to her home pharmacy ([facility] in [place]) [ ] Day 3 FSH, LH, E2 [x] AMH [x] TSH [x] Prolactin [x] Testosterone, DHEAS [x] HgA1C [x] STD screening [x ] Preconceptual screening including Rubella,Varicella, Blood type [ ] Genetic Screen with [email or web address] - will consider [ ] Take vitamins [x] Return to see BUSINESS ANALYSIS CONSULTANT after workup complete to discuss management plan [...] REFL EXon 01-24-2020 Lab Specimen Source Normal [facility] Comment on above: Performed By: #### S YPHR #### [facility] [address] [place] [address] Performed By: #### Jovany ARZG #### [facility] [address] [place] [address] Performed By: #### R UBIG #### [facility] [address] [place] [address] Vital Signs Date Time Vital Sign Value Performing Clinician Facility 04-06-2024 14:10-0500 Body mass index (BMI) [Ratio] 48.58 kg/m2 Mena CARRILLO Work Phone: [facility] 04-06-2024 14:10-0500 Body weight 136.53 kg Mena CARRILLO Work Phone: [facility] 04-06-2024 14:10-0500 Diastolic blood pressure 80 mm[Hg] Mena CARRILLO Work Phone: [facility] 04-06-2024 14:10-0500 Systolic blood pressure 128 mm[Hg] Mena CARRILLO Work Phone: [facility] 03-22-2024 14:14-0500 Body mass index (BMI) [Ratio] 48.92 kg/m2 Tacho Shon DO Work Phone: [facility] 03-22-2024 14:14-0500 Body weight 137.49 kg Tacho Shon DO Work Phone: [facility] 03-22-2024 14:14-0500 Diastolic blood pressure 84 mm[Hg] Tacho Shon DO Work Phone: [facility] 03-22-2024 14:14-0500 Systolic blood pressure 126 mm[Hg] Tacho Shon DO Work Phone: [facility] 03-05-2024 23:11-0400 Diastolic blood pressure 78 mm[Hg] [facility] Work Phone: [facility] 03-05-2024 23:11-0400 Heart rate 90 /min [facility] Work Phone: [facility] 03-05-2024 23:11-0400 Respiratory rate 18 /min [facility] Work Phone: [facility] 03-05-2024 23:11-0400 SaO2% (BldA) [Mass fraction] 96 % [facility] Work Phone: [facility] 03-05-2024 23:11-0400 Systolic blood pressure 136 mm[Hg] [facility] Work Phone: [facility] 03-05-2024 19:59-0400 Body temperature 98.1 [degF] [facility] Work Phone: [facility] 03-05-2024 19:58-0400 Body height 167.64 cm [facility] Work Phone: [facility] 03-05-2024 19:58-0400 Body weight 136.55 kg [facility] Work Phone: [facility] 02-26-2024 19:50-0400 Body height 167.64 cm [facility] Work Phone: [facility] 02-26-2024 19:50-0400 Body temperature 97.8 [degF] [facility] Work Phone: [facility] 02-26-2024 19:50-0400 Body weight 136.98 kg [facility] Work Phone: [facility] 02-26-2024 19:50-0400 Diastolic blood pressure 91 mm[Hg] [facility] Work Phone: [facility] 02-26-2024 19:50-0400 Heart rate 103 /min [facility] Work Phone: [facility] 02-26-2024 19:50-0400 Respiratory rate 16 /min [facility] Work Phone: [facility] 02-26-2024 19:50-0400 SaO2% (BldA) [Mass fraction] 96 % Services [employer] Work Phone: [facility] 02-26-2024 19:50-0400 Systolic blood pressure 144 mm[Hg] [facility] [employer] Work Phone: [facility] 02-23-2024 14:01-0400 Body mass index (BMI) [Ratio] 48.76 kg/m2 Mena Garciaey PA Work Phone: [facility] 02-23-2024 14:01-0400 Body weight 137.04 kg Mena Garciaey PA Work Phone: [facility] 02-23-2024 14:01-0400 Diastolic blood pressure 82 mm[Hg] Mena Ann PA Work Phone: [facility] 02-23-2024 14:01-0400 Systolic blood pressure 128 mm[Hg] Mena Ann PA Work Phone: [facility] 10-06-2023 17:42-0400 Body height 167.64 cm [facility] [employer] Work Phone: [facility] 10-06-2023 17:42-0400 Body temperature 98.3 [degF] [facility] [employer] Work Phone: [facility] 10-06-2023 17:42-0400 Body weight 134 kg Services [employer] Work Phone: [facility] 10-06-2023 17:42-0400 Diastolic blood pressure 94 mm[Hg] [facility] [employer] Work Phone: [facility] 10-06-2023 17:42-0400 Heart rate 98 /min [facility] [employer] Work Phone: [facility] 10-06-2023 17:42-0400 Respiratory rate 18 /min Services [employer] Work Phone: [facility] 10-06-2023 17:42-0400 SaO2% (BldA) [Mass fraction] 100 % Services [employer] Work Phone: [facility] 10-06-2023 17:42-0400 Systolic blood pressure 142 mm[Hg] Services [employer] Work Phone: [facility] 09-17-2023 14:22-0400 Body height 167.[address] [facility] 09-17-2023 14:22-0400 Body mass index (BMI) [Ratio] 47.61 kg/m2 Anna Ortiz RD [facility] 09-17-2023 14:22-0400 Body weight 133.[address] [facility] 08-20-2023 13:05-0400 Body height 167.6 cm Tonya Senior [employer] Work Phone: [facility] 08-20-2023 13:050400 Body weight 133.81 kg Tonya Parrish [employer] Work Phone: [facility] 08-07-2023 15:23-0400 Body height 168.91 cm Services [employer] Work Phone: [facility] 08-07-2023 15:23-0400 Body mass index (BMI) [Ratio] 46.9 kg/m2 Services [employer] Work Phone: [facility] 08-07-2023 15:23-0400 Body weight 133.89 kg Services [employer] Work Phone: [facility] 08-07-2023 15:23-0400 Diastolic blood pressure 83 mm[Hg] Services [employer] Work Phone: [facility] 08-07-2023 15:23-0400 Heart rate 101 /min Services [employer] Work Phone: [facility] 08-07-2023 15:23-0400 Respiratory rate 18 /min Services [employer] Work Phone: [facility] 08-07-2023 15:23-0400 SaO2% (BldA) [Mass fraction] 98 % Services [employer] Work Phone: [facility] 08-07-2023 15:23-0400 Systolic blood pressure 120 mm[Hg] Services [employer] Work Phone: [facility] 06-13-2023 11:00-0500 Body height 168.28 cm Nicholas Michaels Other [facility] 06-13-2023 11:00-0500 Body mass index (BMI) [Ratio] 48.53 kg/m2 Nicholas Michaels Other [employer] Other 06-13-2023 11:00-0500 Body weight 137.44 kg Nicholas Michaels Other [employer] Other 06-13-2023 11:00-0500 Body weight 137.43 kg Services [facility] [place] Phone: [facility] 06-13-2023 11:00-0500 Diastolic blood pressure 82 mm[Hg] Nicholas Michaels Other [facility] 06-13-2023 11:00-0500 Respiratory rate 18 /min Nicholas Michaels Other [employer] Other 06-13-2023 11:00-0500 SaO2% (BldA) [Mass fraction] 97 % Nicholas Michaels Other [employer] Other 06-13-2023 11:00-0500 Systolic blood pressure 120 mm[Hg] Nicholas Michaels Other [facility] 01-08-2023 10:45-0400 Body height 168.28 cm Nicholas Michaels Other [employer] Other 01-08-2023 10:45-0400 Body mass index (BMI) [Ratio] 52.89 kg/m2 Nicholasclayton Michaels Other [employer] Other 01-08-2023 10:45-0400 Body weight 149.78 kg Nicholas Michaels Other [employer] Other 01-08-2023 10:45-0400 Diastolic blood pressure 81 mm[Hg] Nicholas Michaels Other [employer] Other 01-08-2023 10:45-0400 Respiratory rate 18 /min Nicholas Michaels Other [employer] Other 01-08-2023 10:45-0400 SaO2% (BldA) [Mass fraction] 97 % Nicholas Tuxebo Other [employer] Other 01-08-2023 10:45-0400 Systolic blood pressure 122 mm[Hg] Nicholas Tuxebo Other [employer] Other 06-18-2022 16:57-0500 Body height 167.64 cm Services [employer] [facility] Work Phone: [facility] 06-18-2022 16:57-0500 Body weight 157 kg Services [employer] [facility] Work Phone: [facility] 06-18-2022 16:56-0500 Body temperature 98.3 [degF] [facility] Work Phone: [facility] 06-18-2022 16:56-0500 Diastolic blood pressure 67 mm[Hg] [facility] Work Phone: [facility] 06-18-2022 16:56-0500 Heart rate 95 /min [facility] Work Phone: [facility] 06-18-2022 16:56-0500 Respiratory rate 20 /min [facility] Work Phone: [facility] 06-18-2022 16:56-0500 SaO2% (BldA) [Mass fraction] 97 % Services [employer] Work Phone: [facility] 06-18-2022 16:56-0500 Systolic blood pressure 158 mm[Hg] [facility] Work Phone: [facility] 12-02-2021 20:26-0400 Body height 167.64 cm [facility] Work Phone: [facility] 12-02-2021 20:26-0400 Body temperature 98.2 [degF] [facility] [employer] [facility] Work Phone: [facility] 12-02-2021 20:26-0400 Body weight 144.24 kg Services [employer] [facility] Work Phone: [facility] 12-02-2021 20:26-0400 Diastolic blood pressure 89 mm[Hg] Services [employer] Work Phone: [facility] 12-02-2021 20:26-0400 Heart rate 104 /min Services [employer] Work Phone: [facility] 12-02-2021 20:26-0400 Respiratory rate 20 /min Services [employer] Work Phone: [facility] 12-02-2021 20:26-0400 SaO2% (BldA) [Mass fraction] 96 % Services [employer] Work Phone: [facility] 12-02-2021 20:26-0400 Systolic blood pressure 156 mm[Hg] Services [employer] Work Phone: [facility] 06-19-2020 11:10-0500 BMI (Body Mass Index) 46.65 kg/m2 Bayron Mccarty DL-AOJUF-Nrmmis 310 IVF Work Phone: 06-19-2020 11:10-0500 Body weight 131.09 kg Bayron Bibiana GW-KMJDE-Jlathb 310 IVF Work Phone: 06-19-2020 11:10-0500 BSA (Body Surface Area) 2.34 m2 Bayron Bibiana TD-UZYVW-Eucipp 310 IVF Work Phone: 06-19-2020 11:10-0500 Height 167.64 cm Bayron Mccarty HR-TPNBT-Qbeynq 310 IVF Work Phone: 06-19-2020 11:10-0500 1 1 Bayron Mccarty ZU-AVLHM-Flwmys 310 IVF Work Phone: Comment on above: 06-19-2020 11:10-0500 0 1 Bayron Mccarty DB-YMETU-Ktdqvd 310 IVF Work Phone: Comment on above: [...] Not Available Start: 03-30-2024 End: 03-30-2024 ambulatory [facility] Start: 03-22-2024 End: 03-22-2024 Bamboo flowsheet [...] Clinisync Result Encounter Mena CARRILLO Work Phone: [facility] External Department Unsolicited Start: 03-19-2024 End: 03-19-2024 Clinisync Result Encounter Mena CARRILLO Work Phone: [facility] External Department Unsolicited Start: 03-05-2024 End: 03-05-2024 Emergency department patient visit Services [facility] Work Phone: [facility] Work Phone: Start: 03-01-2024 End: 03-01-2024 Orders Only Veda Hayes RN Maternal- Medic ine at [facility] Comment on above: Encounter for follow -up ultrasound of anatomy (Primary Dx); History of pre-eclampsia in prior , currently ; History of delivery, currently ; Obesity affecting in second trimester, unspecified obesity type Start: 02-26-2024 End: 02-26-2024 Emergency department patient visit Services [facility] Work Phone: [facility] Work Phone: Start: 02-23-2024 End: 02-23-2024 [...] Available Start: 02-17-2024 End: 02-17-2024 ambulatory TACHO Rincon [facility] Start: 01-26-2024 End: 01-26-2024 Clinisync Result Encounter Tacho Menendez DO Work Phone: [facility] External Department Unsolicited Start: 01-26-2024 End: 01-26-2024 Clinisync Result Encounter Tacho Valienteo DO Work Phone: [facility] External Department Unsolicited Start: 01-20-2024 End: 01-20-2024 ambulatory TACHO SHON Not Available Start: 01-19-2024 End: 01-19-2024 ambulatory TACHO VALIENTEO [facility] Start: 12-23-2023 End: 12-23-2023 ambulatory MENA ANN Not Available Start: 11-25-2023 End: 11-25-2023 ambulatory TACHO SHON Not Available Start: 10-30-2023 End: 10-30-2023 ambulatory TACHO SHON Not Available Start: 10-09-2023 End: 10-09-2023 ambulatory LATONIA M JC Facility:[facility] Start: 10-06-2023 End: 10-06-2023 Emergency department patient visit Services [facility] Work Phone: [facility] Work Phone: Start: 09-17-2023 End: 09-17-2023 ambulatory ANNA ORTIZ Facility:[facility] Start: 09-17-2023 End: 09-17-2023 Nutrition therapy Anna Ortiz RD Nutrition Therapy Comment on above: Obesity, Class III, BMI 40-49.9 (morbid obesity) (HCC) (Primary Dx); Dietary counseling Start: 09-17-2023 End: 09-17-2023 Telemedicine consultation with patient Anna Angel BAÑUELOS Nutrition Therapy Start: 09-15-2023 Admission [facility] Tonya Senior APRN.[employer] Work Phone: General Surgery Comment on above: Results Start: 09-15-2023 E-mail encounter fro m caregiver Tonya Senior APRN.[employer] Work Phone: General Surgery Start: 09-11-2023 Telephone encounter Tonya Senior APRN.[employer] Work Phone: General Surgery Comment on above: Results Start: 09-08-2023 End: 09-08-2023 ambulatory TONYA SENIOR Facility:[facility] Start: 09-05-2023 End: 09-05-2023 ambulatory TONYA SENIOR Facility:[facility] Start: 09-01-2023 End: 09-02-2023 ambulatory LATONIA GREENE [facility] Start: 09-01-2023 End: 09-01-2023 Admission to same day surgery center Latonia Willis Jc PhD Work Phone: General Surgery BMI PSYL Comment on above: NO SHOW (Primary Dx) Start: 09-01-2023 End: 09-01-2023 Telemedicine consultation with patient Latonia Greene PhD Work Phone: General Surgery BMI PSYL Start: 08-20-2023 Admission to same da y surgery center Tonya Senior SAUSAGE MAKER.[employer] Work Phone: General Surgery Comment on above: Welcome to Bariatric Surgery Start: 08-20-2023 E-mail encounter fro m caregiver Tonya Senior SAUSAGE MAKER.[employer] Work Phone: [place] [id number] Start: 08-20-2023 End: 08-20-2023 ambulatory Tonya Senior SAUSAGE MAKER.[employer] Work Phone: General Surgery Comment on above: Body mass index (BMI ) of 50-59.9 in adult (HCC) (Primary Dx); Angel's thyroiditis; High blood cholesterol Start: 08-20-2023 End: 08-20-2023 Telemedicine consultation with patient Tonya Senior SAUSAGE MAKER.[employer] Work Phone: [facility] Start: 08-07-2023 End: 08-07-2023 ambulatory Services [facility] Work Phone: [facility] Work Phone: Start: 08-07-2023 End: 08-07-2023 Patient encounter procedure Services [facility] Work Phone: [facility] Work Phone: Start: 06-13-2023 Follow-up encounter Nicholas loen [facility] Start: 06-13-2023 Registered Recurring [facility] Work Phone: [facility] Work Phone: Start: 06-13-2023 End: 06-13-2023 ambulatory Nicholas Michaels [facility] [employer] Other Start: 06-13-2023 End: 06-13-2023 Patient encounter procedure Services [employer] Work Phone: [facility]- Start: 01-08-2023 End: 01-08-2023 ambulatory Nicholas Michaels Other [facility] [employer] Other Start: 01-08-2023 Nutrition therapy Nicholas Michaels [facility] Start: 06-18-2022 End: 06-18-2022 Emergency department patient visit Services [employer] Work Phone: [facility] Work Phone: Start: 06-03-2022 End: 06-03-[address] TACHO MENENDEZ Facility: Start: 12-02-2021 End: 12-02-2021 Emergency department patient visit Services [employer] Work Phone: [facility] Start: 07-08-2020 Patient encounter procedure Bayron Bibiana PAEZXT-HXYFJ-Yeahlk 310 IVF Work Phone: Start: 07-05-2020 Patient encounter procedure Bayron Mccarty TY-BGRPY-Hhkxjf 310 IVF Work Phone: Start: 06-19-2020 Patient encounter procedure Bayron Porterley DF-KYDXY-Ftreko 310 IVF Work Phone: Start: 04-14-2020 Patient encounter procedure Bayron Bibiana PAEZUY-QBGHI-Jxrtxw 310 IVF Work Phone: Start: 03-28-2020 Patient encounter procedure Bayron Bibiana JD-RMEML-Djfeqz 310 IVF Work Phone: Start: 2020 Patient encounter procedure Bayron Bibiana PAEZRO-NUWSM-Pfmffn 310 IVF Work Phone: Start: 01-24-2020 Patient encounter procedure Bayron PAEZ-OBGYN-Risman 310 IVF Work Phone: Start: 08-01-2017 End: 08-02-2017 Ambulatory Agustin Patton Facility:CD:[id number] Start: 07-14-2017 End: 07-15-2017 Ambulatory Agustin Patton Facility:CD:[id number] Procedures Date Procedure Procedure Detail Performing Clinician Start: 04-06-2024 Urnls dip stick/tabl et rgnt non-auto w/o micrscp Mena CARRILLO Work Phone: Start: 03-22-2024 Urnls dip stick/tabl et rgnt non-auto w/o micrscp Tacho Shon DO Work Phone: Start: 03-19-2024 ALL CBC WITH AUTO DIFF Mena CARRILLO Work Phone: Start: 03-05-2024 Plain chest X-ray Servi malina [employer] Work Phone: Start: 03-05-2024 Respiratory Panel (PCR) [facility] [employer] Work Phone: Start: 03-05-2024 Streptococcus pyogen es antigen assay [facility] [employer] Work Phone: Start: 02-26-2024 Streptococcus pyogen es antigen assay [facility] [employer] Work Phone: Start: 02-23-2024 Urnls dip stick/tabl et rgnt non-auto w/o micrscp Mena CARRILLO Work Phone: Start: 01-26-2024 ALL THYROID STIM HORMONE Tacho Shon DO Work Phone: Start: 12-23-2023 Microscopic observat ion [Identifier] in Cervix by Cyto stain Tacho Shon DO Work Phone: Start: 07-06-2020 Antibody screen Comment on above: Performed By: #### T +S #### [facility] [address] [place] [address] Start: 02-24-2021 IO Ultrasound, limit ed pelvic, follicle monitoring Bayron Mccarty Start: 06-26-2020 IO Ultrasound, limit ed pelvic, follicle monitoring Bayron Mccarty Start: 05-10-2020 Assay of progesterone J oslissette Mccarty Adenoid excision Bayron Porter madison Cholecystectomy Bayron Porterlm ey SARS Antigen (LFIA) Services [facility] Work Phone: Plan of Treatment Date Care Activity Detail Author Start: 12-22-2028 Screening for malign ant neoplasm of cervix [facility] Start: 12-22-2026 Screening for malign ant neoplasm of cervix Pap Smear [facility] Start: 03-01-2025 End: 03-01-2025 US MFM with or without consult US MFM with or without consult Imaging Routine Encounter for follow-up ultrasound of anatomy History of pre-eclampsia in prior , currently History of delivery, currently Obesity affecting in second trimester, unspecified obesity type Expected: 03/01/2025 (Approximate), Expires: 03/01/2025 [facility] Work Phone: Comment on above: Expected: 03/01/2025 (Approximate), Expires: 03/01/2025 Start: 01-18-2025 Adult BMI Screening Adult BMI Screen ing [facility] Start: 01-18-2025 Tobacco Screening Tobacco Screening [facility] Start: 04-22-2024 End: 04-22-2024 Patient encounter procedure 04/22/2024 9:30 AM EST Routine [facility] [address] [place] [id number] Tacho Menendez, [address] [place] [address] [facility] Start: 04-06-2024 End: 04-06-2025 US biophysical profile w non stress test US biophysical profile w non stress test Imaging Routine H/O premature delivery Expected: 04/06/2024 (Approximate), Expires: 04/06/2025 [facility] Work Phone: Comment on above: Expected: 04/06/2024 (Approximate), Expires: 04/06/2025 Start: 04-06-2024 End: 04-06-2024 Patient encounter procedure 04/06/2024 1:30 PM EST Routine [facility] [address] [place] [phone] Mena Ann PA [address] [place] [address] [facility] Start: 03-30-2024 End: 03-30-2024 Patient encounter procedure 03/30/2024 2:45 PM EST Appointment [facility] [address] [place] [address] [facility] Start: 03-22-2024 End: 03-22-2024 Patient encounter procedure 03/22/2024 1:50 PM EST Routine [facility] [address] [place] [address] Tacho Menendez, DO [address] [place] [address] [facility] Start: 03-22-2024 End: 03-22-2024 Professional / ancillary services management 03/22/2024 1:00 PM EST Ancillary Procedure [facility] [address] [place] [phone] [facility] Start: 03-16-2024 End: 03-16-2024 Patient encounter procedure 03/16/2024 1:30 PM EST Routine [facility] [address] [place] [phone] Tacho Menendez, DO [address] [place] [address] [facility] Start: 02-23-2024 End: 02-22-2025 CBC panel - Blood by Automated count CBC Lab Routine Diabetes mellitus screening Expected: 02/23/2024 (Approximate), Expires: 02/22/2025 [facility] Work Phone: Comment on above: Expected: 02/23/2024 (Approximate), Expires: 02/22/2025 Start: 02-23-2024 End: 02-22-2025 Measurement of glucose 1 hour after glucose challenge for glucose tolerance test Glucose tolerance, 1 hour Lab Routine Diabetes mellitus screening Expected: 02/23/2024 (Approximate), Expires: 02/22/2025 [facility] Comment on above: Expected: 02/23/2024 (Approximate), Expires: 02/22/2025 Start: 02-23-2024 End: 02-22-2025 US for US OB SCAN FOR GROWTH Imaging Routine size inconsistent with dates H/O premature delivery Expected: 02/23/2024 (Approximate), Expires: 02/22/2025 [facility] Comment on above: Expected: 02/23/2024 (Approximate), Expires: 02/22/2025 Start: 02-23-2024 End: 02-23-2024 Patient encounter procedure 02/23/2024 1:40 PM EDT Routine [facility] [address] [facility] [place] [address] Mena Ann PA [address] [place] [address] Arrived [facility] Comment on above: Arrived Start: 02-18-2024 End: 02-18-2024 Patient encounter procedure 02/18/2024 2:30 PM EDT Routine [facility] [address] [place] [phone] Mena Ann PA [address] [place] [address] [facility] Start: 01-11-2024 COVID-19 Vaccine ( season) COVID-19 Vaccine ( season) [facility] Start: 01-11-2024 Influenza vaccination [facility] Start: 09-17-2023 End: 09-17-2023 Nutrition therapy 09/17/2023 2:30 PM EDT [facility] Nutrition Therapy [address] [address] Anna Ortiz, [address] [place] [address] Red/Davis/0 Diet/Santiago Nutrition Therapy Comment on above: Red/Davis/0 Diet/ Santiago Start: 09-12-2023 End: 09-12-2023 Admission to same day surgery center 09/12/2023 3:30 PM EDT [facility] [address] [place] [address] Joo Bradley MD [address] [place] [address] Red/Kirk/0 Diet/Santiago General Surgery Comment on above: Red/Kirk/0 Diet/Anth em Start: 09-05-2023 End: 09-05-2023 ambulatory 09/05/2023 11:45 AM EDT Results Only [facility] [address] [place] [address] [place] [address] [facility] Start: 08-20-2023 End: 11-19-2023 25-hydroxyvitamin D3 [Mass/volume] in Serum or Plasma VITAMIN D 25 HYDROXY Lab Routine Body mass index (BMI) of 50-59.9 in adult (HCC) Expected: 08/20/2023, Expires: 11/19/2023 [facility] Work Phone: Comment on above: Expected: 08/20/2023 , Expires: 11/19/2023 Start: 08-20-2023 End: 11-19-2023 CBC W Auto Differential panel - Blood COMPLETE BLOOD COUNT AND DIFFERENTIAL Lab Routine Body mass index (BMI) of 50-59.9 in adult (HCC) Expected: 08/20/2023, Expires: 11/19/2023 [facility] Work Phone: Comment on above: Expected: 08/20/2023 , Expires: 11/19/2023 Start: 08-20-2023 End: 11-19-2023 Cobalamin (Vitamin B12) [Mass/volume] in Serum or Plasma VITAMIN B12 Lab Routine Body mass index (BMI) of 50-59.9 in adult ([facility]) Expected: 08/20/2023, Expires: 11/19/2023 [facility] Work Phone: Comment on above: Expected: 08/20/2023 , Expires: 11/19/2023 Start: 08-20-2023 End: 11-19-2023 Comprehensive metabolic 2000 panel - Serum or Plasma COMPREHENSIVE METABOLIC PANEL Lab Routine High blood cholesterol Body mass index (BMI) of 50-59.9 in adult ([facility]) Expected: 08/20/2023, Expires: 11/19/2023 [facility] Work Phone: Comment on above: Expected: 08/20/2023 , Expires: 11/19/2023 Start: 08-20-2023 End: 11-19-2023 Ferritin [Mass/volume] in Serum or Plasma FERRITIN Lab Routine Body mass index (BMI) of 50-59.9 in adult ([facility]) Expected: 08/20/2023, Expires: 11/19/2023 [facility] Work Phone: Comment on above: Expected: 08/20/2023 , Expires: 11/19/2023 Start: 08-20-2023 End: 11-19-2023 Folate [Mass/volume] in Serum or Plasma FOLATE, SERUM Lab Routine Body mass index (BMI) of 50-59.9 in adult ([facility]) Expected: 08/20/2023, Expires: 11/19/2023 [facility] Work Phone: Comment on above: Expected: 08/20/2023 , Expires: 11/19/2023 Start: 08-20-2023 End: 11-19-2023 Helicobacter pylori IgG Ab [Presence] in Serum or Plasma by Immunoassay H PYLORI IGG AB Lab Routine Body mass index (BMI) of 50-59.9 in adult ([facility]) Expected: 08/20/2023, Expires: 11/19/2023 [facility] Work Phone: Comment on above: Expected: 08/20/2023 , Expires: 11/19/2023 Start: 08-20-2023 End: 11-19-2023 Hemoglobin A1c in Blood HEMOGLOBIN A1C Lab Routine Body mass index (BMI) of 50-59.9 in adult ([facility]) Expected: 08/20/2023, Expires: 11/19/2023 [facility] Work Phone: Comment on above: Expected: 08/20/2023 , Expires: 11/19/2023 Start: 08-20-2023 End: 11-19-2023 Iron and Iron binding capacity panel - Serum or Plasma IRON AND TIBC Lab Routine Body mass index (BMI) of 50-59.9 in adult ([facility]) Expected: 08/20/2023, Expires: 11/19/2023 [facility] Work Phone: Comment on above: Expected: 08/20/2023 , Expires: 11/19/2023 Start: 08-20-2023 End: 11-19-2023 Lipid 1996 panel - Serum or Plasma LIPID PANEL BASIC Lab Routine High blood cholesterol Body mass index (BMI) of 50-59.9 in adult ([facility]) Expected: 08/20/2023, Expires: 11/19/2023 [facility] Work Phone: Comment on above: Expected: 08/20/2023 , Expires: 11/19/2023 Start: 08-20-2023 End: 11-19-2023 Natriuretic peptide.B prohormone N-Terminal [Mass/volume] in Serum or Plasma NT PRO BNP Lab Routine Body mass index (BMI) of 50-59.9 in adult ([facility]) Expected: 08/20/2023, Expires: 11/19/2023 [facility] Work Phone: Comment on above: Expected: 08/20/2023 , Expires: 11/19/2023 Start: 08-20-2023 End: 11-19-2023 NICOTINE & METAB, UR NICOTINE & METAB, UR Lab Routine Body mass index (BMI) of 50-59.9 in adult ([facility]) Expected: 08/20/2023, Expires: 11/19/2023 [facility] Work Phone: Comment on above: Expected: 08/20/2023 , Expires: 11/19/2023 Start: 08-20-2023 End: 11-19-2023 Thyrotropin [Units/volume] in Serum or Plasma THYROID STIMULATING HORMONE Lab Routine Angel's thyroiditis Body mass index (BMI) of 50-59.9 in adult (HCC) Expected: 08/20/2023, Expires: 11/19/2023 [facility] Work Phone: Comment on above: Expected: 08/20/2023 , Expires: 11/19/2023 Start: 08-20-2023 End: 11-19-2023 TOXICOLOGY SCREEN, ROUTINE URINE TOXICOLOGY SCREEN, ROUTINE URINE Lab Routine Body mass index (BMI) of 50-59.9 in adult (HCC) Expected: 08/20/2023, Expires: 11/19/2023 [facility] Work Phone: Comment on above: Expected: 08/20/2023 , Expires: 11/19/2023 Start: 08-20-2023 End: 11-19-2023 VITAMIN B1 (THIAMINE), WHOLE BLOOD VITAMIN B1 (THIAMINE), WHOLE BLOOD Lab Routine Body mass index (BMI) of 50-59.9 in adult (HCC) Expected: 08/20/2023, Expires: 11/19/2023 [facility] Work Phone: Comment on above: Expected: 08/20/2023 , Expires: 11/19/2023 Start: 05-12-2023 Behavioral Health Screening Behavioral Health Screening [facility] Start: 01-10-2023 Covid-19 Vaccine ( season) Covid-19 Vaccine ( season) [facility] Start: 12-02-2021 [facility] Start: 12-02-2021 XR Chest Single view [facility] Work Phone: Start: 2021 Screening for malign ant neoplasm of cervix HPV Testing [facility] Start: 2012 Screening for malign ant neoplasm of cervix Pap Testing [facility] Start: 2010 Hepatitis B Vaccine (1 of 3 - 19+ 3-dose series) Hepatitis B Vaccine (1 of 3 - 19+ 3-dose series) [facility] Start: 2009 Adult BMI Follow Up Plan Adult BMI Follow Up Plan [facility] Start: 2009 HIV screening HIV Screening [facility] Start: 2003 Depression Screening Depression Scre ening [facility] Start: 2002 DTaP,Tdap and Td Vaccines (6 - Tdap) DTaP,Tdap and Td Vaccines (6 - Tdap) [facility] Start: 2002 Urine microalbumin profile DTaP,Tdap,Td Vaccine (6 - Tdap) [facility] End: 08-19-2024 ECG COMPLETE ECG COMPLETE ECG Routine Body mass index (BMI) of 50-59.9 in adult ([facility]) 1 Occurrences starting 08/20/2023 until 08/19/2024 [facility] Work Phone: Comment on above: 1 Occurrences starti ng 08/20/2023 until 08/19/2024 Patient Education [facility] Work Phone: Patient referral [facility] Work Phone: End: 09-18-2024 US Abdomen RUQ US ABD RIGHT UPPER QUADRANT Radiology Routine Body mass index (BMI) of 50-59.9 in adult ([facility]) 1 Occurrences starting 08/20/2023 until 09/18/2024 [facility] Work Phone: Comment on above: 1 Occurrences starti ng 08/20/2023 until 09/18/2024 End: 09-18-2024 XR Chest PA and Lateral XR CHEST 2V FRONTAL/LAT Radiology Routine Body mass index (BMI) of 50-59.9 in adult ([facility]) 1 Occurrences starting 08/20/2023 until 09/18/2024 [facility] Work Phone: Comment on above: 1 Occurrences starti ng 08/20/2023 until 09/18/2024 IM-SVENZ-Ivssgo 310 IVF Work Phone: [facility] NEGATED: Highlighted row has been ruled out! Planned Goals not documented XH-NLUKZ-Minmpk 310 IVF Work Phone: Immunizations Immunization Date Immunization Notes [facility] influenza virus vacc ine, unspecified formulation Tacho Menendez Work Phone: [facility] Payers Date Payer Category Payer Self-pay [id number] 2022 Medicaid [id number] 2022 Medicaid [id number] 1991 Unknown [id number] 3 1991 Unknown [id number] 86 1991 Unknown [id number] [id number] 86 1991 Unknown [id number] 2.16.840.1.507323.3.579.2.12 86 1991 Unknown [id number] 2.16.840.1.688352.3.579.2.12 86 1991 Unknown [id number] 2.16.840.1.758910.3.579.2.12 59 1991 Unknown [id number] 2.16.840.1.492835.3.579.2.12 59 1991 Unknown [id number] 2.16.840.1.372283.3.579.2.12 59 1991 Unknown [id number] 2.16.840.1.613858.3.579.2.12 59 1991 Unknown [id number] 2.16.840.1.102380.3.579.2.12 59 1991 Unknown [id number] 2.16.840.1.099786.3.579.2.12 59 1991 Unknown [id number] 2.16.840.1.035935.3.579.2.12 59 1959 Medicaid [id number] Private Health Insurance [facility] [id number] Unknown [id number] Unknown Regular Insurance [id number] Unknown [id number] Unknown Regular Auto[employer] [id number] Unknown [id number] 1 Unknown [id number] 1 Unknown [id number] 1 Unknown [id number] 1 Social History Date Type Detail Facility Start: 12-02-2021 End: 05-17-2023 Tobacco smoking status PAIS Never smoked tobacco (finding) [facility] Start: 1990 Sex Assigned At Female F [facility] Start: 05-17-2023 End: 08-20-2023 Sex Assigned At [employer] Other Start: 05-17-2023 End: 08-20-2023 Tobacco use and exposure Smokeless tobacco non-user [facility] Work Phone: Start: 08-20-2023 End: 11-25-2023 Alcohol intake Current drinker of alcohol (finding) [facility] Start: 05-17-2023 End: 08-20-2023 History of Social function [facility] National Score (1-100), lower number is lower risk 86 [facility] Start: 08-20-2023 Alcohol Comment occ [facility] Start: 1990 Sex Assigned At Not on file C [facility] Start: 08-26-2023 Gender identity Identifies as female gender (finding) [facility] Start: 08-26-2023 Sexual orientation Heterosexual (fin ding) [facility] Start: 09-14-2023 [facility] How often to you hav [...] Start: 01-19-2024 Alcoholic beverage intake Ex-drinker (finding) [facility] Start: 12-13-2014 Sex Female (finding) [facility] NEGATED: Highlighted row - - [id number] 310 [facility] Work Phone: Functional Status Date Assessment Result Facility NEGATED: Highlighted row Functional performance Functional status health issues are not documented Disease [id number]-[id number] 310 [facility] Work Phone: Mental Status Date Assessment Result Facility NEGATED: Highlighted row Cognitive function [Interpretation] Cognitive status health issues are not documented Disease MV-SWBFA-[id number] 310 [facility] Work Phone: Clinical Notes 01-08-2023 [...] 06/2019 OTHER SURGICAL HISTORY 2020 IUI 07/10/20 [facility] SALPINGECTOMY Left 2011 ectopic REVIEW OF SYSTEMS [...] of: GERARDO Vazquez documented in this encounter [facility] 03-22-2024 History of Presen t illness Narrative [...] 06/2019 OTHER SURGICAL HISTORY 2020 IUI 07/10/20 [facility] SALPINGECTOMY Left 2012 ectopic REVIEW OF SYSTEMS Review of Systems: [...] nursing note reviewed. Exam conducted with a nursery hand present. Vitals: Estimated body mass index is [...] Tacho Menendez DO documented in this encounter [facility] 02-23-2024 History of Presen t illness Narrative [...] Morbid obesity with BMI of 50.0-59.9, adult (CMS/[facility]) Vaginal delivery Social History Tobacco Use Smoking [...] 06/2019 OTHER SURGICAL HISTORY 2020 IUI 07/10/20 [facility] SALPINGECTOMY Left 2011 ectopic REVIEW OF SYSTEMS [...] nursing note reviewed. Exam conducted with a nursery hand present. Vitals: Estimated body mass index is [...] of: GERARDO Vazquez documented in this encounter [facility] 10-09-2023 Note HNO ID: [id number] Author: LATONIA GREENE, PhD Service: ? Author Type: Psychologist Type: Progress Notes Filed: 10/17/2023 11:09 Note Text: [facility] BARIATRIC SURGERY BEHAVIORAL HEALTH EVALUATION BMI Surgical Pathway Visit type: Psychology Visit DATE OF SERVICE: October 09, 2023 TIME OF SERVICE: 1:00 PM - 2:00 PM COST CENTER: [facility] CPT CODE: - [id number] Virtual Psych Diagnostic Eval BILLING CODE: ENDO MICHELLE Greene DATE OF FIRST SERVICE THIS CYCLE: October 09, 2023 SESSION #: 1 I have communicated my name and active licensure. The patient's identity and physical location (see below) were verified at the time of this visit. Either the patient or their legal customer development representative has been informed of the risks and benefits of -- and alternatives to -- treatment through a remote evaluation and consents to proceed with the evaluation remotely. This evaluation is NOT intended for forensic, disability or child custody purposes. The patient e-signed a copy of the consent form via [employer] and the [facility] insurance benefits, fees for service, emergency [...] in case of emergency and/or disconnection. [address] [place] [address] (Change address in [facility], was mother) Alternate Slps Bibi Arrieta (Mother) [phone] (Home Phone) Patient identified the following plan to follow in case of emergency: Go to emergency room (nearest is [facility]) or call 911. IDENTIFYING INFORMATION: Ms. Jaleesa [...] pt has l (more content not included)... [facility] 09-22-2023 Telephone encounter Note Can not schedule patient as there is already a patient scheduled for that day and time. Please advise. Thanks Meme Castrejon [facility] 09-22-2023 Telephone encounter Note ----- Message from Anna Ortiz RD sent at 09/17/2023 3:17 PM EDT ----- Regarding: virtual follow up Please schedule for a virtual up 6/7 at 1. The patient is aware, no call needed. Thank you! Anna [facility] 09-22-2023 Miscellaneous Notes Can not [...] levels, no answer, left vm. Tonya Senior APRN.SALVAGE GRINDER documented in this encounter [facility] 09-17-[address] [...] full-liquid diet. Examples: Slim Fast Advanced Nutrition [place] Breakfast Essentials Light Start Drink mixed with [...] Bariatric Multivitamin and Calcium Citrate (total of 2541-1361 mg/day) * take calcium citrate separately from Multivitamin with iron at least 2 hours apart and 4 hours apart from additional calcium www.[email or web address] [email or web address]. - Bariatric Choice: 4 Complete Multivitamins (chewables) [...] grams per day documented in this encounter [facility] 09-17-2023 Note HNO ID: [id number] Author: ANNA ORTIZ RD Service: ? Author Type: Registered Dietitian Type: Progress Notes Filed: 09/17/2023 15:19 Note Text: [facility] Nutrition Therapy: Virtual Consult - Initial Assessment I have communicated my name and active licensure. The patient?s identity and physical location were verified at the time of this visit. Either the patient or their legal customer development representative has been informed of the risks [...] Your Guide to Surgery by next session [email or web address] 2. Do not skip [...] Examples: ? Slim Fast Advanced Nutrition ? [place] Breakfast Essentials ?Light Start? Drink mixed with [...] in the AM, 2 in the PM) www.[email or web address]. - [employer]: 1 Bariatric Multivitamin and Calcium Citrate (total of 5030-7476 mg/day) * take calcium citrate separately from Multivitamin with iron at least 2 hours apart and 4 hours apart from additional calcium www.[email or web address]. - Bariatric Choice: 4 Complete Multivitamins (chewables) per day Www.[email or web address]. - Bariatric Advantage: 2 Multivitamins and 3 Calcium Citrate Chewables per day * take calcium citrate separately from Multivitamin with iron at least 2 hours apart and 4 hours apart from additional calcium [email or web address]. Start practicing eating slowly, chewing each bite [...] and using Phen (more content not included)... [facility] 09-17-2023 History of Presen t illness Narrative [facility] Nutrition Therapy: Virtual Consult - Initial Assessment I have communicated my name and active licensure. The patient s identity and physical location were verified at the time of this visit. Either the patient or their legal customer development representative has been informed of the risks [...] Your Guide to Surgery by next session [email or web address] -/[email or web address]/ [email or web address]?la=en 2. Do not [...] full-liquid diet. Examples: Slim Fast Advanced Nutrition [place] Breakfast Essentials Light Start Drink mixed with [...] in the AM, 2 in the PM) www.[email or web address]. - [employer]: 1 Bariatric Multivitamin and Calcium Citrate (total of 3604-4217 mg/day) * take calcium citrate separately from Multivitamin with iron at least 2 hours apart and 4 hours apart from additional calcium www.[email or web address].Done. - Bariatric Choice: 4 Complete Multivitamins (chewables) per day Www.[email or web address]. - Bariatric Advantage: 2 Multivitamins and 3 Calcium Citrate Chewables per day * take calcium citrate separately from Multivitamin with iron at least 2 hours apart and 4 hours apart from additional calcium Www.[email or web address]. Start practicing eating slowly, chewing each bite [...] suggested by 180 Initial weight: 295 lbs. [place] body weight is 155 lbs. Excess body weight is 140 lbs. Goal weight pre-op is 281 lbs. Protein needs are estimated at 85gm (1.2 - protein/kg IBW) Patient meets the National Institutes of Health guidelines for weight loss surgery and has [employer] Insurance therefore is required to complete 0 [...] 8-8:30 pizz rolls, sandwich, chips Snack - archie levy cheese crackers Beverages - water, juice Alcohol- [...] TIME: 2:25 PM documented in this encounter [facility] 09-11-2023 Telephone encounter Note Attempted to call pt, re: hypothyroid and low vitamin d levels, no answer, left vm. Tonya Senior APRN.MERON [facility] 09-01-2023 Note HNO ID: [id number] Author: LATONIA GREENE, PhD Service: ? Author Type: Psychologist Type: Progress Notes Filed: 09/01/2023 13:22 Note Text: [facility] Progress Note 09/01/2023 Billing code: Jc Patient did not attend, cancel, or reschedule this appointment. Provider left HIPAA compliant voicemail and PlatformQhart message with contact information to reschedule. Latonia Greene, PhD Clinical Psychologist [facility] 09-01-2023 History of Presen t illness Narrative [facility] Progress Note 09/01/2023 Billing code: Jc Patient did not attend, cancel, or reschedule this appointment. Provider left HIPAA compliant voicemail and Gipist message with contact information to reschedule. Latonia Greene, PhD Clinical Psychologist documented in this encounter [facility] 08-20-2023 Note HNO ID: [id number] Author: TONYA SENIOR APRN.MERON Service: ? Author Type: Nurse Practitioner Type: Progress Notes Filed: 08/20/2023 16:21 Note Text: have communicated my name and active licensure. The patient's identity and physical location were verified at the time of this visit. Either the patient or their legal customer development representative has been informed of the risks and benefits of -- and alternatives to -- treatment through a remote evaluation and consents to proceed with the evaluation remotely. BMI MEDICAL CONSULT I have communicated my name and active licensure. The patient's identity and physical location were verified at the time of this visit. Either the patient or their legal customer development representative has been informed of the risks [...] HEMOGLOBIN A1C - (more content not included)... [facility] 08-20-2023 History of Presen t illness Narrative Images from the original note were not included. have communicated my name and active licensure. The patient's identity and physical location were verified at the time of this visit. Either the patient or their legal customer development representative has been informed of the risks and benefits of -- and alternatives to -- treatment through a remote evaluation and consents to proceed with the evaluation remotely. BMI MEDICAL CONSULT I have communicated my name and active licensure. The patient's identity and physical location were verified at the time of this visit. Either the patient or their legal customer development representative has been informed of the risks [...] PANEL - LIPID PANEL BASIC Tonya Senior APRN.SALVAGE GRINDER -- Recommend that she should not become [...] Obesity Medicine Visit documented in this encounter [facility] 06-13-2023 Evaluation note Encounter Date [...] 8 weeks -Handed patient self referral to [facility] bariatric surgery program -Gipmu-it-kjhg A1c December 2022 5.4%-Follow up in clinic in 8 weeksThis note was created with voice recognition software. Please excuse errors in transmission supervisor. Jun, Dietary surveillance and counseling (ICD-10 - [...] for a goal of 5% weight reduction. [employer] Other 08-30-2023 Evaluation note* Encounter Date Diagnosis [...] on in the past and denies side bcnzzeq-Jspor-cl-care A1c today 5.4%-Follow up in clinic in 4 weeksThis note was created with voice recognition software. Please excuse errors in transmission supervisor. Dec, Dietary surveillance and counseling (ICD-10 - [...] premade protein drink for breakfast, by plain Malian yogurt and flavor yourself with cinnamon or [...] with the patient, and documenting clinical information. [employer] Other chief complaint+Reason for visit Narrative* Chief Complaint Obesity Reason for Visit Exercise counseling Severe obesity (BMI >= 40) [facility] Work Phone: [place] complaint+Reason for visit Narrative* Chief Complaint Pos test, Cramping, Vaginal bleeding Reason for Visit Exercise counseling Severe obesity (BMI >= 40) [facility] Work Phone: evaluation noteNo assessment information available [facility] Work Phone: evaluation note* Diagnosis Onset Date Resolution Status Exercise counseling acute Severe obesity (BMI >= 40) delilah kevin [facility] Work Phone: evaluation note* Diagnosis Body mass index (BMI) of 50-59.9 in adult (HCC)- Primary Body Mass Index 50.0-59.9, adult Angel's thyroiditis Chronic lymphocytic thyroiditis High blood cholesterol Pure hypercholesterolemia [facility] Diagnosis NO SHOW- Primary [facility] Diagnosis Obesity, Class III, BMI 40-49.9 (morbid obesity) ([facility])- Primary Morbid obesity Dietary counseling Dietary surveillance and counseling documented [facility]* Diagnosis Vitamin D deficiency- Primary Unspecified vitamin D deficiency [facility] Diagnosis 25 weeks gestation of Second trimester state, incidental Diabetes mellitus screening Screening for diabetes mellitus size inconsistent with dates H/O premature delivery documented in this encounter [facility] HealthcareEvaluation note* Diagnosis Encounter for follow-up ultrasound of anatomy- Primary History of pre-eclampsia in prior , currently with other poor obstetric history History of delivery, currently with history of pre-term labor Obesity affecting in second trimester, unspecified obesity type [facility] Diagnosis Third trimester state, incidental 29 weeks gestation of documented in this encounter [facility] HealthcareEvaluation note* Diagnosis Third trimester state, incidental 31 weeks gestation of H/O premature delivery documented in this encounter [facility] HealthcareHistory general Narrative - Reported* Type Description Date Surgical History adnoidectomy Surgical History gall bladder Surgical History L Fallopian tube removed Hospitalization History See Above [employer] Other Hospital Discharge instructions Additional Instructions You may take frcy-arw-snpbiuw cough and cold medication as needed You may take bjun-ivs-dxhzaxt Tylenol and/or ibuprofen as needed Increase oral fluids Follow-up with family doctor as needed Return to the ER for any acute difficulty breathing high fever vomiting or any other [facility] Work Phone: Hospital Discharge instructions Additional Instructions Nothing into vagina until seen by PLANT ELECTRICIAN May take Tylenol for discomfort Increase oral fluids Follow-up with PLANT ELECTRICIAN Return to the ER for heavy bleeding greater than a pad an hour feeling dizzy lightheaded or any other [facility] Work Phone: Hospital Discharge instructions Additional Instructions Follow-up with your OB in the next week.[facility] Work Phone: InstructionsNot on filedocumented in this encounter [facility] (n[facility]ative)* Diagnostic Procedure Only (Routine) - Pending Review Specialty Diagnoses / Procedures Referred By Wendy campos Referred To Contact US IMAGING Diagnoses Body mass index (BMI) of 50-59.9 in adult (HCC) Procedures US ABD RIGHT UPPER QUADRANT US ABDOMINAL REAL TIME W/IMAGE LIMITED Tonya Senior, SAUSAGE MAKER.SALVAGE GRINDER [address] [place] [address] [facility] [address] Referral ID Status Reason Start Date Expiration Date Visits Requested Visits Authorized [id number] Pending Review Auto-Generat ed Referral 08/20/2023 09/18/2024 1 1 * Outpatient Procedure (Routine) - Pending Review Specialty Diagnoses / Procedures Referred By Contac t Referred To [facility] Diagnoses Body mass index (BMI) of 50-59.9 in adult (HCC) Procedures ECG COMPLETE ECG ROUTINE ECG W/LEAST 12 LDS W/I&R Tonya Senior APRN.SALVAGE GRINDER [address] [place] [address] [facility] [address] [place] [address] Referral ID Status Reason Start Date Expiration Date Visits Requested Visits Authorized [id number] Pending Review Auto-Generat ed Referral 08/20/2023 08/19/2024 1 1 [facility] Summary Purpose Family History Mother Name Dates Details No pertinent family [...] mellitus Unknown sister Obesity Unknown Advance Directives Advance Directive Response Recorded Date/ Time Advance Directives No April 2:37pm Advance Directive Response Recorded Date/ Time Advance Directives No April 1:37pm Chief Complaint and Reason for Visit Chief Complaint chest pain, cough Chief Complaint cough,chest pain Chief Complaint Sore throat Chief Complaint Sore throat sore throat, cp Additional Source Comments INFORMATION SOURCE (unrecogn ized section and content) DATE CREATED AUTHOR 10/31/2017 [facility] DATE CREATED AUTHOR AUTHOR'S ORGANIZ ATION 04/23/2020 [facility] DATE CREATED AUTHOR AUTHOR'S ORGANIZ ATION 08/08/2020 [employer] DATE CREATED AUTHOR AUTHOR'S ORGANIZ ATION 08/22/2020 [facility] DATE CREATED AUTHOR AUTHOR'S ORGANIZ ATION 06/11/2022 [facility] DATE CREATED AUTHOR AUTHOR'S ORGANIZ ATION 09/06/2023 [facility] DATE CREATED AUTHOR AUTHOR'S ORGANIZ ATION 10/03/2023 [facility] DATE CREATED AUTHOR AUTHOR'S ORGANIZ ATION 10/18/2023 [facility] DATE CREATED AUTHOR AUTHOR'S ORGANIZ ATION 01/20/2024 [facility] DATE CREATED AUTHOR AUTHOR'S ORGANIZ ATION 03/19/2024 [facility] DATE CREATED AUTHOR AUTHOR'S ORGANIZ ATION 04/02/2024 [facility] DATE CREATED AUTHOR AUTHOR'S ORGANIZ ATION 04/09/2024 [facility] EPIC Care Teams (unrecognized sec tion and content) Team Status: Inactive Member Role Status Dates Services Family [facility] Primary Care Provider Active Ck To PA-C Emergency Provider Active Team Status: Active Member Role Status Dates Services [facility] Primary Care Provider Active Team Status: Inactive Member Role Status Dates Services [facility] Primary Care Provider Active ONIEL Mcmillan Emergency Provider Active Team Status: Inactive Member Role Status Dates Nicholas Michaels DO Attending Provider Active St art: June 13, 2023 End: June 13, 2023 Team Status: Active Member Role Status Dates Services [facility] Primary Care Provider Active Start: June 13, 2023 Nicholas Michaels DO Attending Provider Active St art: June 13, 2023 Team Status: Inactive Member Role Status Dates Services [facility] Primary Care Provider Active Start: August 07, 2023 End: August 07, 2023 Nicholas Michaels DO Attending Provider Active St art: August 07, 2023 End: August 07, 2023 Team Status: Inactive Member Role Status Dates Services [facility] Primary Care Provider Active Start: October 06, 2023 End: October 06, 2023 [facility] Active Start: October 06, 2023 End: October 06, 2023 Team Status: Inactive Member Role Status Dates Services [facility] Primary Care Provider Active Start: February 26, 2024 End: February 26, 2024 Ck To PA-C Emergency Provider Active Start: February 26, 2024 End: February 26, 2024 Team Status: Inactive Member Role Status Dates Services [facility] Primary Care Provider Active Start: March 05, [...] or prosecute any alcohol or drug abuse patient.[facility] the event this information is protected by the Federal Confidentiality of Alcohol and Drug Abuse Patient Records regulations: The Federal rules restrict any use of the information to criminally investigate or prosecute any alcohol or drug abuse patient.[facility] CenterIn the event this information is protected by the Federal Confidentiality of Alcohol and Drug Abuse Patient Records regulations: The Federal rules restrict any use of the information to criminally investigate or prosecute any alcohol or drug abuse patient.[facility] CenterIn the event this information is protected by the Federal Confidentiality of Alcohol and Drug Abuse Patient Records regulations: The Federal rules restrict any use of the information to criminally investigate or prosecute any alcohol or drug abuse patient.[facility] CenterIn the event this information is protected by the Federal Confidentiality of Alcohol and Drug Abuse Patient Records regulations: The Federal rules restrict any use of the information to criminally investigate or prosecute any alcohol or drug abuse patient.[facility] CenterIn the event this information is protected by the Federal Confidentiality of Alcohol and Drug Abuse Patient Records regulations: The Federal rules restrict any use of the information to criminally investigate or prosecute any alcohol or drug abuse patient.[facility] FOR RECORDS PERTAINING TO PATIENTS [...] BE BASED ON THE PRIMARY CLINICAL RECORDS. [facility]. provides no warranty or guarantee of the accuracy or completeness of information in this document.
[2024-04-24 14:49] VITALS: BP 122/76; PULSE 100
== END 2024-04-24 15:20 | disposition home or self-care (01) ==
LOC: US 00:12 → FBC 14:15
PROVIDERS: Visit Provider Physician Assistant
DX: O26.893 Other specified pregnancy related conditions, third trimester (principal); Z87.51 Personal history of pre-term labor; Z3A.33 33 weeks gestation of pregnancy
CPT/HCPCS: 76818

== ENCOUNTER 2024-04-27 12:50 | Outpatient (OUT) | payer MEDICAID, SELFPAY ==
--- NOTE | 2024-04-27 12:52 | US_ITS ---
[address] [address] Patient Name: FABRIZIO PAINTING MRN: [id number] date: 1990 Sex: F Assigned Patient Location: [facility] Current Patient Location: [facility] Accession/Order Number: [id number] Exam Date: 04/27/2024 12:53 Report Date: 04/27/2024 13:34 At the request of: MELISSA CLARK Procedure: US OB growth EXAMINATION: US OB growth HISTORY: THYROID DISEASE COMPARISON: No relevant comparison available. FINDINGS: Heart Rate: 153 bpm Amniotic Fluid Volume: 9.7 cm, largest fluid pocket 3.2 cm Number: 1 Position: Cephalic presentation, longitudinal lie BIOMETRY: BPD: 8.09 cm; 32 weeks 3 days; 7.70 % HC: 30.95 cm; 34 weeks 4 days; 21.60 % AC: 29.32 cm; 33 weeks 2 days; 26.30 % FL: 7.25 cm; 37 weeks 1 day; 95.80 % EFW: 2064.58 g; 49.40 %, 5 lbs. 6 oz. FL/AC: 24.73 FL/BPD: 89.62 HC/AC: 1.06 GESTATIONAL AGE: Age by EDC: 34 weeks 2 days DARLENE by EDC: 2024-06-06 Age by US: 34 weeks 3 days DARLENE by US: 2024-06-05 US/US OB growth IMPRESSION: Femur length at the 96th percentile, otherwise normal interval growth Electronically authenticated by: GEORGETTE LIANG Date: 04/27/2024 13:34
--- OUTSIDE RECORDS SUMMARY | 2024-04-27 13:12 | XMS_ITS | CCD ---
Author Organization [facility] Care Team Providers Care Compressor Mechanic Name Role Phone Agustin Patton Unavailable Unavailable Agustin Patton Unavailable Unavailable Bayron Mccarty Unavailable Unavailable Unavailable Unavailable Unavailable Unavailable Unavailable Unavailable [facility] Primary Care Provider DEMETRIUS To Emergency Provider DR TACHO MENENDEZ Attending Unavailable DR TACHO MENENDEZ Consulting Unavailable DR TACHO MENENDEZ Admitting Unavailable [facility] Primary Care Provider Anabella [facility] Marychuy E Emergency Provider Nicholas Michaels Unavailable [facility] Services Primary Care Provider DO Nicholas Michaels Attending Provider Unavailable Primary Care Provider Unavailabl e Unavailable Primary Care Provider Unavailabl e LATONIA GREENE Attending Unavailable TONYA SENIOR Attending Unavailable [facility] Primary Care Provider [phone] Anabella [facility] Marychuy E Emergency Provider LATONIA GREENE Referring Unavailable LATONIA GREENE Attending Unavailable ANNA ORTIZ Attending Unavailable TONYA SENIOR Referring Unavailable TONYA SENIOR Referring Unavailable TACHO MENENDEZ Referring Unavailable MAKEDA GROSS Attending Unavailable TACHO MENENDEZ Referring Unavailable Unavailable Primary Care Provider Unavailabl e [facility] Primary Care Provider DEMETRIUS To Emergency Provider Unavailable Primary Care Provider Unavailabl DO Devika Christie Emergency Provider Ck To Attending Unavailable Ck To Admitting Unavailable [facility] Primary Care Unavaila Marychuy Rey Attending Unavailable Marychuy Kyle Admitting Unavailable [facility] Primary Care Unavaila Nicholas Willams Attending Unavailable Nicholas Michaels Admitting Unavailable [facility] Primary Care Unavaila ble [facility] Primary Care Unavaila Devika Hillman Attending Unavailable Devika De La Garza Admitting Unavailable TACHO MENENDEZ Referring Unavailable SHONJUDAHY R Referring Unavailable SHON, TACHO Attending Unavailable RAJNI, MENA Attending Unavailable SHON, TACHO Attending Unavailable RAJNI, MENA Attending Unavailable SHON, TACHO Attending Unavailable RAJNI, MENA Attending Unavailable SHON, TACHO Attending Unavailable Medications Current Medications Medication Drug Class(es) Dates Sig (Normalized) Sig (Original) aspirin 81 mg chewable tablet (1 source) Platelet Aggregation Inhibitor, Nonsteroidal Anti-inflammatory Drug Start: 01-19-2024 aspirin 81 mg chewable tablet Indications: History of pre-eclampsia in prior , currently Chew 1 tablet (81 mg total) and swallow in the morning. 90 tablet 3 01/19/2024 Active azithromycin 250 mg oral tablet (8 sources) Macrolide Antimicrobial Start: 03-16-2024 azithromycin (Zithromax [...] mg/ml oral solution (2 sources) Phenothiazine, Uncompetitive J-htazsc-L-aspartate Receptor Antagonist, Sigma-1 Agonist Start: 02-26-2024 take [...] nostril levothyroxine sodium 0.05 mg oral tablet (20 sources) l-Thyroxine Start: 11-18-2023 End: 02-16-2024 take [...] 7:27pm magnesium oxide 400 mg oral tablet (13 sources) Start: 10-30-2023 End: 10-29-2024 take 1 tablet by mouth once daily magnesium oxide (Mag-Ox) 400 MG tablet Indications: headache in first trimester Take 1 tablet (400 mg) by mouth Daily 30 tablet 10/30/2023 10/29/2024 Active Bussey (No Known Home Meds) (3 sources) Start: 10-06-2023 Bussey (No Kn own Home Meds) Active October 06, 2023 12:00am Start: 06-18-2022 Bussey (No Kn own Home Meds) Active June [...] w/FA-DHA ( Gummies) 0.18-25 MG chewable tablet (12 sources) Start: 11-26-19 End: 11-26-19 MV & [...] - 2 TAB PO EVERY 4-6 HOURS 23 07July 20, 2019 July 28, 2020 7:27pm amoxicillin [...] oral solution (7 sources) alpha-Adrenergic Agonist, Uncompetitive G-qlcrcd-J-asparta te Receptor Antagonist, Sigma-1 Agonist Start: 2 [...] 26, 2019 12:58pm July 28, 2020 7:27pm Knrwdrwp-Ujh-Lj-Fa () 1 mg Tablet (7 sources) Start: 12-31-2020 End: 07-04-2021 take 1 tablet by mouth once Urvggidb-Mve-Bf-Fa () 1 mg Tablet Discontinued TAB PO December 30, 2020 11:00pm July 04, 2021 9:48am Start: 12-31-2020 End: 07-04-2021 take 1 tablet by mouth once Mcvcmrdp-Boh-Tl-F a () 1 mg Tablet Discontinued TAB PO December 31, 2020 12:00am July 04, 2021 10:48am progesterone 100 mg oral capsule (9 sources) Progesterone Start: 07-28-2020 End: 12-31-2020 Progesterone Micronized Discontinued 100 MG VAGINAL Twice daily July 28, 2020 12:00am December 31, 2020 9:55am Start: 06-19-2020 take 1 capsule by mo [facility] twice daily Progesterone Micronized 100 MG Oral Capsule TAKE 1 CAPSULE Twice daily insert capsules vaginally Quantity: 30 Refills: 3 Bibiana MD, Bayron Start : 19-Jun-2020 Active sennosides, residential 8.6 mg oral tablet (1 source) take [...] UA Negative Negative - 4(70) +++ mg/dL [facility] Blood, UA Negative Negative - 50 Bradley/mcL [facility] Clarity, UA Clear [facility] Color, UA Yellow [facility] Glucose, UA Negative Negative - 1999(110) ++++ mg/dL [facility] Interpretation and review of laboratory results Abnormal [facility] Ketones, UA Negative Negative - 160(16) ++++ mg/dL [facility] Leukocytes, UA Positive Negative - 500+++ Gabby/mcL [facility] Comment on above: small Nitrite, UA Negative Negative - Positive [facility] pH, UA 7 5 - 9 [facility] Protein, UA Negative Negative - 1999(20) ++++ mg/dL [facility] Spec Grav, UA 1.02 1 - 1.03 [facility] Urobilinogen, UA 0.2 0.2 - 12 mg/dL [facility] Urinalysis macro (dipstick) panel (U)on 03-22-2024 Bilirubin, UA Positive Negative - 4(70) +++ mg/dL [facility] Blood, UA Negative Negative - 50 Bradley/mcL [facility] Clarity, UA Clear [facility] Color, UA Yellow [facility] Glucose, UA Negative Negative - 1999(110) ++++ mg/dL [facility] Interpretation and review of laboratory results Normal [facility] Ketones, UA Positive Negative - 160(16) ++++ mg/dL [facility] Leukocytes, UA Positive Negative - 500+++ Gabby/mcL [facility] Nitrite, UA Negative Negative - Positive [facility] pH, UA 7 5 - 9 [facility] Protein, UA Positive Negative - 1999(20) ++++ mg/dL [facility] Spec Grav, UA 1.025 1 - 1.03 [facility] Urobilinogen, UA 1.0 0.2 - 12 mg/dL [facility] ALL CBC WITH AUTO DIFFon BASOPHILS ABSOLUTE AUTO 0 [facility] Basophils/100 WBC (Bld) 0.5 % 0.2 - 2.0 % [facility] Eosinophils/100 WBC (Bld) 2.4 % 0.9 - 7.0 % [facility] Erythrocyte distribution width (RBC) [Ratio] 13.2 % 11.0 - 15.0 % [facility] Hematocrit (Bld) [Volume fraction] 33.2 % Low 36.0 - 48.0 % [facility] Hemoglobin (Bld) [Mass/Vol] 11.1 g/dL Low 12.0 - 16.0 g/dL [facility] IMMATURE GRANULOCYTES ABS AUTO 0.02 [facility] Immature granulocytes/100 WBC (Bld) 0.3 % 0.0 - 0.5 % [facility] Interpretation and review of laboratory results Abnormal [facility] LYMPHOCYTES ABSOLUTE AUTO 2.1 [facility] Lymphocytes/100 WBC (Bld) 32.5 % 20.5 - 60.0 % [facility] MCH (RBC) [Entitic mass] 30.5 pg 26.7 - 34.0 pg [facility] MCHC (RBC) [Mass/Vol] 33.4 g/dL 29.9 - 35.2 g/dL [facility] MCV (RBC) [Entitic vol] 91.2 fL 81.0 - 99.0 fL [facility] MONOCYTES ABSOLUTE AUTO 0.3 [facility] Monocytes/100 WBC (Bld) 4.6 % 1.7 - 12.0 % [facility] NEUTROPHILS ABSOLUTE AUTO 3.9 [facility] Neutrophils/100 WBC (Bld) 59.7 % 43.0 - 75.0 % [facility] Platelet mean volume (Bld) [Entitic vol] 9.3 fL Low 9.5 - 13.5 fL [facility] TBH EO # 0.2 [facility] TB PLT 342 [facility] RBC 3.64 Low [facility] WBC 6.6 [facility] BioFire Not Detectedon 03-05 BioFire Not Detected Not detected Normal Not Detecte T [facility] Comment on above: Result Comment: This is a duplicate RP2.1 COVID (PCR) result to be used for statistical tracking purpose only. PERFORMED BY: [place] [address] PATHOLOGIST FELT HAT MELLOWING MACHINE OPERATOR LION STANLEY M.D. Performed By: #### B IOFIRECOVNOTDE, QS, RESP PANEL UPP. #### [address] COVID-19 Detected/Not Detect edOrdered By: Devika De La Garza on 03-05-2024 SARS-CoV-2 (COVID-19) RNA YANET+non-probe Ql (Nph) Not detected Not Detecte [facility] Comment on above: This is a duplicate RP2.1 COVID (PCR) result to be used for statistical tracking purpose only. ECG 12 lead ECGon 03-05-2024 ECG 12 lead ECG [facility] [place] [address] Electrocardiograph Report Signed Patient: Jaleesa Arrieta MR#: [id number] [birth year] : 1990 Acct:[id number] Age/Sex: 33 / F ADM Date: 03/05/24 Loc: ER Room: Type: [facility] ER Attending Dr: Ordering Provider: Devika De [...] Confirmed by DEVIKA DE LA GARZA DO ([id number]) on 03/06/2024 1:44:25 AM Referred By: Electronically Signed By: DEVIKA DE LA GARZA DO Transcribed By: MUS Signed By Devika De La Garza DO 03/06 0144 Normal [facility] Quick Strepon 03-05-2024 Quick Strep Streptococcus pyogen es Ag [Presence] in Throat by Rapid immunoassay Negative for Group A Strep Antigen Note 1 NOTE 2 Results are those of a screening test. NOTE 3 If clinically indicated please order a culture. NOTE 4 NOTE 5 Reference range = Negative PERFORMED BY: [place] [address] PATHOLOGIST FELT HAT MELLOWING MACHINE OPERATOR LION STANLEY M.D. Normal [facility] Comment on above: Performed By: #### B IOFIRECOVNOTDE, QS, RESP PANEL UPP. #### [address] Respiratory (Upper) Panel, P CRon 03-05-2024 Respiratory [...] A H3 Blank Space ------ PERFORMED BY: [place] [address] PATHOLOGIST FELT HAT MELLOWING MACHINE OPERATOR LION STANLEY M.D. Normal [facility] Comment on above: Performed By: #### B IOFIRECOVNOTDE, QS, RESP PANEL UPP. #### [address] Respiratory pathogens DNA an d RNA panel - Nasopharynx by YANET with non-probe detectionOrdered By: Devika De La Garza on 03-05-2024 Respiratory pathogens DNA and RNA panel YANET+non-probe (Nph) [facility] Streptococcus pyogenes antig en detectionOrdered By: Devika De La Garza on 03-05-2024 S. pyogenes Ag Ql (Unsp spec) [facility] XR chest 1V portableon 03-05 XR chest 1V portable [facility] Main [place] [id number] XRay Report Signed Patient: Jaleesa Arrieta MR#: [id number] [birth year] : 1990 Acct:[id number] Age/Sex: 33 / F ADM Date: 03/05/24 Loc: ER Room: Type: [facility] ER Attending Dr: Copies to: Devika De [...] Priscilla Cunningham M.D.03/05/2024 9:34 PM Dictation Location: [place] [address] Transcribed By: LIDA 03/05/242133 Dictated By: Priscilla Cunningham MD 03/05/242130 Signed By: 03/05/242133 Normal [facility] Quick Strepon 02-26-2024 Quick Strep Streptococcus pyogen es Ag [Presence] in Throat by Rapid immunoassay Negative for Group A Strep Antigen Note 1 NOTE 2 Results are those of a screening test. NOTE 3 If clinically indicated please order a culture. NOTE 4 NOTE 5 Reference range = Negative PERFORMED BY: [address] [place] [address] PATHOLOGIST FELT HAT MELLOWING MACHINE OPERATOR LION STANLEY M.D. Normal [facility] Comment on above: Performed By: #### Q S #### [facility] [address] [place] [address] Streptococcus pyogenes antig en detectionOrdered By: Ck To on 02-26-2024 S. pyogenes Ag Ql (Unsp spec) [facility] Urinalysis macro (dipstick) panel (U)on 02-23-2024 Bilirubin, UA Negative Negative - 4(70) +++ mg/dL [facility] Blood, UA Negative Negative - 50 Bradley/mcL [facility] Clarity, UA Clear [facility] Color, UA Yellow [facility] Glucose, UA Negative Negative - 1999(110) ++++ mg/dL [facility] Interpretation and review of laboratory results Abnormal [facility] Ketones, UA Negative Negative - 160(16) ++++ mg/dL [facility] Leukocytes, UA Positive Negative - 500+++ Gabby/mcL [facility] Comment on above: small Nitrite, UA Negative Negative - Positive [facility] pH, UA 7 5 - 9 [facility] Protein, UA Negative Negative - 1999(20) ++++ mg/dL [facility] Spec Grav, UA 1.02 1 - 1.03 [facility] Urobilinogen, UA 0.2 0.2 - 12 mg/dL [facility] ALL THYROID STIM HORMONEon 0 01-26-2024 TSH Qn 2.645 m[IU]/L [facility] Alanine aminotransferase [En zymatic activity/volume] in Serum or PlasmaOrdered By: Marychuy Kyle on 10-06-2023 ALT [Catalytic activity/Vol] 13 U/L Normal 7-52 [facility] Comment on above: Performed By: #### C BC, CMP, HCGQNT #### [facility] [address] [place] [address] Albumin [Mass/volume] in Ser um or Plasma by Bromocresol green (BCG) dye binding methoOrdered By: Marychuy Bullimore on 10-06-2023 Albumin BCG dye [Mass/Vol] 3.8 g/dL 3.5-5.7 [facility] Alkaline phosphatase [Enzyma tic activity/volume] in Serum or PlasmaOrdered By: Marychuy Bullimore on 10-06-2023 ALP [Catalytic activity/Vol] 61 U/L Normal 34-104 [facility] Comment on above: Performed By: #### C BC, CMP, HCGQNT #### [facility] [address] Aspartate aminotransferase [ Enzymatic activity/volume] in Serum or PlasmaOrdered By: Marychuy Bullimore on 10-06-2023 AST [Catalytic activity/Vol] 13 U/L Normal 13-39 [facility] Comment on above: Performed By: #### C BC, CMP, HCGQNT #### [facility] [address] Automated basophil %Ordered By: Marychuy Bullimore on 10-06-2023 Basophils/100 WBC (Bld) 0.6 % Normal . [facility] Comment on above: Performed By: #### C BC, CMP, HCGQNT #### [facility] [address] [place] [address] Automated basophil countOrde red By: Marychuy Bullimore on 10-06-2023 Basophils (Bld) [#/Vol] 0.0 10*3/uL Normal 0.0-0.2 [facility] Comment on above: Result Comment: PERF ORMED BY: [place] [address] PATHOLOGIST FELT HAT MELLOWING MACHINE OPERATOR LION STANLEY M.D. Performed By: #### C BC, CMP, HCGQNT #### [facility] [address] [place] [address] Automated blood monocyte cou ntOrdered By: Marychuy Bullimore on 10-06-2023 Monocytes (Bld) [#/Vol] 0.5 10*3/uL Normal 0.0-0.8 [facility] Comment on above: Performed By: #### C BC, CMP, HCGQNT #### [address] Automated eosinophil %Ordere d By: Marychuy Bullimore on 10-06-2023 Eosinophils/100 WBC (Bld) 0.7 % Normal . [facility] Comment on above: Performed By: #### C BC, CMP, HCGQNT #### [address] Automated eosinophil countOr dered By: Marychuy Kathleenore on 10-06-2023 Eosinophils (Bld) [#/Vol] 0.1 10*3/uL Normal 0.0-0.45 [facility] Comment on above: Performed By: #### C BC, CMP, HCGQNT #### [address] Automated epithelial cells c ount in urine sediment (number/area)Ordered By: Marychuy Kyle on 10-06-2023 Epithelial cells Auto (Urine sed) [#/Area] 3-4 [HPF] 0-2 [facility] Automated monocyte %Ordered By: Marychuy Kathleenore on 10-06-2023 Monocytes/100 WBC (Bld) 6.7 % Normal . [facility] Comment on above: Performed By: #### C BC, CMP, HCGQNT #### [address] Automated neutrophil %Ordere d By: Marychuy Phaniimore on 10-06-2023 Neutrophils/100 WBC (Bld) 54.4 % Normal . [facility] Comment on above: Performed By: #### C BC, CMP, HCGQNT #### [address] Bacteria [Presence] in Urine by AutomatedOrdered By: Marychuy Kyle on 10-06-2023 Bacteria Auto Ql (U) None seen [HPF] None Seen [facility] Bilirubin Test strip Ql (U)O rdered By: Marychuy Kyle on 10-06-2023 Bilirubin Ql (U) Negative Negative [facility] Bilirubin.total [Mass/volume ] in Serum or PlasmaOrdered By: Marychuy Bullimore on 10-06-2023 Bilirubin [Mass/Vol] 0.2 mg/dL Low 0.3-1.0 [facility] Comment on above: Performed By: #### C BC, CMP, HCGQNT #### [facility] [address] [place] [address] [place] Calcium [Mass/volume] in Ser um or PlasmaOrdered By: Marychuy Bullimore on 10-06-2023 Calcium [Mass/Vol] 9.4 mg/dL Normal 8.6-10.3 [facility] Comment on above: Performed By: #### C BC, CMP, HCGQNT #### [facility] [address] Carbon dioxide, total [Moles /volume] in Serum or PlasmaOrdered By: Marychuy Bullimore on 10-06-2023 CO2 [Moles/Vol] 25.5 mmol/L Normal 21.0-31.0 [facility] Comment on above: Performed By: #### C BC, CMP, HCGQNT #### [facility] [address] [place] [address] [place] Chloride [Moles/volume] in S sondra or PlasmaOrdered By: Marychuy Bullimore on 10-06-2023 Chloride [Moles/Vol] 105 mmol/L Normal 98-107 [facility] Comment on above: Performed By: #### C BC, CMP, HCGQNT #### [facility] [address] Choriogonadotropin.beta subu nit [Units/volume] in Serum or PlasmaOrdered By: Marychuy Bullimore on 10-06-2023 HCG.beta subunit Qn 2799.00 m[IU]/mL [facility] Comment on above: Approximate Approxim ate hCG Gestational Age Range (mIU/ml) (weeks)0.2-1 5-50 1-2 50-500 2-3 100-5,000 3-4 500-10,000 4-5 1,000-50,000 5-6 10,000-100,000 6-8 15,000-200,000 8-12 10,000-100,000 Color of Urine by AutoOrdere d By: Marychuy Kyle on 10-06-2023 Color (U) Yellow Normal Yellow [facility] Comment on above: Order Comment: NEED MORE SPECIMEN Name Collection Type:: Clean-Voided Midstream Performed By: #### A DDONUAPLUS #### [address] Complete Blood Count Auto Di ffon 10-06-2023 Mean Corpuscular HGB Conc 34.4 g/dL Normal 32.0-35.0 [facility] Comment on above: Performed By: #### C BC, CMP, HCGQNT #### [place] [address] [place] Monocytes/100 WBC (Bld) 17.37 % Normal 0.00-20.00 [facility] Comment on above: Performed By: #### C BC, CMP, HCGQNT #### [place] [address] [place] NRBC% 0.2 /100{WBC} Normal 0-0.5 [facility] Comment on above: Performed By: #### C BC, CMP, HCGQNT #### [address] Comprehensive Metabolic Pane panchito 10-06-2023 Albumin [Mass/Vol] 3.8 g/dL Normal 3.5-5.7 [facility] Comment on above: Performed By: #### C BC, CMP, HCGQNT #### [place] [address] [place] Creatinine Clr Calc Pharmacy 180.48 Normal [facility] Comment on above: Performed By: #### C BC, CMP, HCGQNT #### [place] [address] [place] GFR/1.73 sq M.predicted MDRD (S/P/Bld) [Vol rate/Area] mL/min/{1.73_m2} Normal [facility] Comment on above: Performed By: #### C BC, CMP, HCGQNT #### [facility] [address] Creatinine [Mass/volume] in Serum or PlasmaOrdered By: Marychuy Kyle on 10-06-2023 Creatinine [Mass/Vol] 0.63 mg/dL Normal 0.60-1.20 [facility] Comment on above: Performed By: #### C BC, CMP, HCGQNT #### [facility] [address] [place] [address] [place] Dipstick and Microscopicon 0 10-06-2023 Appearance (U) Clear Normal Clear [facility] Comment on above: Order Comment: NEED MORE SPECIMEN Name Collection Type:: Clean-Voided Midstream Performed By: #### A DDONUAPLUS #### [address] Bacteria,Urine None Seen Normal None Seen [facility] Comment on above: Order Comment: NEED MORE SPECIMEN Name Collection Type:: Clean-Voided Midstream Performed By: #### A DDONUAPLUS #### [place] [address] [place] Bilirubin,Urine Negative Normal Negative [facility] Comment on above: Order Comment: NEED MORE SPECIMEN Name Collection Type:: Clean-Voided Midstream Performed By: #### A DDONUAPLUS #### [address] Glucose Ql (U) Normal Normal Normal [facility] Comment on above: Order Comment: NEED MORE SPECIMEN Name Collection Type:: Clean-Voided Midstream Performed By: #### A DDONUAPLUS #### [place] [address] [place] Hyaline Casts,Urine 0-8 Normal 0-8 [facility] Comment on above: Order Comment: NEED MORE SPECIMEN Name Collection Type:: Clean-Voided Midstream Result Comment: PERF ORMED BY: [place] [address] PATHOLOGIST FELT HAT MELLOWING MACHINE OPERATOR LOIN STANLEY M.D. Performed By: #### A DDONUAPLUS #### [place] [address] [place] Ketones Ql (U) Negative Normal Negative [facility] Comment on above: Order Comment: NEED MORE SPECIMEN Name Collection Type:: Clean-Voided Midstream Performed By: #### A DDONUAPLUS #### [address] Leukocyte esterase Test strip Ql (U) 1+ High Negative [facility] Comment on above: Order Comment: NEED MORE SPECIMEN Name Collection Type:: Clean-Voided Midstream Performed By: #### A DDONUAPLUS #### [place] [address] [place] Nitrite,Urine Negative Normal Negative [facility] Comment on above: Order Comment: NEED MORE SPECIMEN Name Collection Type:: Clean-Voided Midstream Performed By: #### A DDONUAPLUS #### [place] [address] [place] Occult Blood,Urine Negative Normal Negative [facility] Comment on above: Order Comment: NEED MORE SPECIMEN Name Collection Type:: Clean-Voided Midstream Result Comment: PERF ORMED BY: [place] [address] PATHOLOGIST FELT HAT MELLOWING MACHINE OPERATOR LION STANLEY M.D. Performed By: #### A DDONUAPLUS #### [place] [address] [place] Protein,Urine Negative Normal Negative [facility] Comment on above: Order Comment: NEED MORE SPECIMEN Name Collection Type:: Clean-Voided Midstream Performed By: #### A DDONUAPLUS #### [place] [address] [place] RBC LM.HPF (Urine sed) [#/Area] 0 /[HPF] Normal 0-4 [facility] Comment on above: Order Comment: NEED MORE SPECIMEN Name Collection Type:: Clean-Voided Midstream Performed By: #### A DDONUAPLUS #### [place] [address] [place] Specificy [place],Urine 1.017 Normal 1.001-1.030 [facility] Comment on above: Order Comment: NEED MORE SPECIMEN Name Collection Type:: Clean-Voided Midstream Performed By: #### A DDONUAPLUS #### [address] Squamous Epithelial Cell,Urine 3-4 High 0-2 [facility] Comment on above: Order Comment: NEED MORE SPECIMEN Name Collection Type:: Clean-Voided Midstream Performed By: #### A DDONUAPLUS #### [address] Urobilinogen,Urine Normal Normal Normal [facility] Comment on above: Order Comment: NEED MORE SPECIMEN Name Collection Type:: Clean-Voided Midstream Performed By: #### A DDONUAPLUS #### [address] WBC,Urine 3-4 Normal 0-4 [facility] Comment on above: Order Comment: NEED MORE SPECIMEN Name Collection Type:: Clean-Voided Midstream Performed By: #### A DDONUAPLUS #### [address] Erythrocyte distribution wid th [Ratio] by Automated countOrdered By: Marychuy Kyle on 10-06-2023 Erythrocyte distribution width (RBC) [Ratio] 13.4 % Normal 11.9-15.3 [facility] Comment on above: Performed By: #### C BC, CMP, HCGQNT #### [address] Erythrocytes [#/area] in Uri ne sediment by Automated countOrdered By: Marychuy Bullimore on 10-06-2023 RBC Auto (Urine sed) [#/Area] 0-1 [HPF] 0-4 [facility] Erythrocytes [#/volume] in B lood by Automated countOrdered By: Marychuy Bullimore on 10-06-2023 RBC (Bld) [#/Vol] 4.08 10*6/uL Normal 3.60-5.00 [facility] Comment on above: Performed By: #### C BC, CMP, HCGQNT #### [place] [id number] [facility] Glucose [Mass/volume] in Ser um or PlasmaOrdered By: Marychuy Kyle on 10-06-2023 Glucose [Mass/Vol] 100 mg/dL Normal 70-100 [facility] Comment on above: ADA recommended refe rence rangeRandom Glucose Reference Range is dependent on time and content of last meal. Glucose of more than 200 mg/dL in a nonstressed, ambulatory subject supports the diagnosis of Diabetes Mellitus. Result Comment: Fajardo om Glucose Reference Range is dependent on time and content of last meal. Glucose of more than 200 mg/dL in a nonstressed, ambulatory subject supports the diagnosis of Diabetes Mellitus. ADA recommended reference range Performed By: #### C BC, CMP, HCGQNT #### [address] HCG,Quantitativeon HCG,Quantitative 2799.00 m[iU]/mL Normal [facility] Comment on above: Result Comment: Appr oximate Approximate hCG Gestational Age Range (mIU/ml) (weeks) 0.2-1 5-50 1-2 50-500 2-3 100-5,000 3-4 500-10,000 4-5 1,000-50,000 5-6 10,000-100,000 6-8 15,000-200,000 8-12 10,000-100,000 PERFORMED BY: [place] [address] PATHOLOGIST [employer] MELLOWING MACHINE OPERATOR LION STANLEY M.D. Performed By: #### C BC, CMP, HCGQNT #### [place] [id number] [facility] Hematocrit [Volume Fraction] of Blood by Automated countOrdered By: Marychuy Kyle on 10-06-2023 Hematocrit (Bld) [Volume fraction] 36.7 % Normal 34.0-46.4 [facility] Comment on above: Performed By: #### C BC, CMP, HCGQNT #### [address] Hemoglobin [Mass/volume] in BloodOrdered By: Marychuy Kyle on 10-06-2023 Hemoglobin (Bld) [Mass/Vol] 12.6 g/dL Normal 11.8-15.4 [facility] Comment on above: Performed By: #### C BC, CMP, HCGQNT #### [facility] [address] Ketones Auto test strip (U) [Mass/Vol]Ordered By: Marychuy Kyle on 10-06-2023 Ketones (U) [Mass/Vol] Negative Negative [facility] - UrinalysisOrder ed By: Marychuy Kyle on 10-06-2023 Hyaline casts LM Ql (Urine sed) 0-8 [LPF] 0-8 [facility] Leukocytes [#/area] in Urine sediment by Automated countOrdered By: Marychuy Kyle on 10-06-2023 WBC Auto (Urine sed) [#/Area] 3-4 [HPF] 0-4 [facility] Leukocytes [#/volume] correc inocencia for nucleated erythrocytes in Blood by Automated counOrdered By: Marychuy Kyle on 10-06-2023 WBC corrected for nucl RBC Auto (Bld) [#/Vol] 7.4 10*3/uL 3.8-11.6 [facility] Leukocytes [#/volume] in Blo od by Automated countOrdered By: Marychuy Kyle on 10-06-2023 WBC (Bld) [#/Vol] 7.4 10*3/uL Normal 3.8-11.6 [facility] Comment on above: Performed By: #### C BC, CMP, HCGQNT #### [facility] [address] [place] [address] [place] Lymphocytes [#/volume] in Bl ood by Automated countOrdered By: Marychuy Kyle on 10-06-2023 Lymphocytes (Bld) [#/Vol] 2.8 10*3/uL Normal 1.00-4.8 [facility] Comment on above: Performed By: #### C BC, CMP, HCGQNT #### [facility] [address] [place] [address] Lymphocytes/100 leukocytes i n Blood by Automated countOrdered By: Marychuy Kyle on 10-06-2023 Lymphocytes/100 WBC (Bld) 37.6 % Normal . [facility] Comment on above: Performed By: #### C BC, CMP, HCGQNT #### [facility] [address] [place] [address] MCH [Entitic mass] by Automa inocencia countOrdered By: Marychuy Kyle on 10-06-2023 MCH (RBC) [Entitic mass] 31.0 pg Normal 24.7-34.3 [facility] Comment on above: Performed By: #### C BC, CMP, HCGQNT #### [address] MCHC Auto (RBC) [Mass/Vol]Or dered By: Marychuy Kyle on 10-06-2023 MCHC (RBC) [Mass/Vol] 34.4 g/dL 32.0-35.0 [facility] MCV [Entitic volume] by Auto mated countOrdered By: Marychuy Kyle on 10-06-2023 MCV (RBC) [Entitic vol] 90.1 fL Normal 80-100 [facility] Comment on above: Performed By: #### C BC, CMP, HCGQNT #### [facility] [address] [place] [address] Monocyte distribution width [Entitic volume] in Blood by AutomatedOrdered By: Marychuy Kyle on 10-06-2023 Monocyte distribution width Auto (Bld) [Entitic vol] 17.37 % 0.00-20.00 [facility] Neutrophils [#/volume] in Bl ood by Automated countOrdered By: Marychuy Kyle on 10-06-2023 Neutrophils (Bld) [#/Vol] 4.0 10*3/uL Normal 1.8-7.7 [facility] Comment on above: Performed By: #### C BC, CMP, HCGQNT #### [facility] [address] [place] [address] Nitrite Test strip Ql (U)Ord ered By: Marychuy Kyle on 10-06-2023 Nitrite Ql (U) Negative Negative [facility] No Panel InformationOrdered By: Marychuy Kyle on 10-06-2023 Estimated GFR (CKD-EPI) > 60.0 mL/Min [facility] Creatinine Clearance (Chem 180.48 [facility] Nucleated erythrocytes [Pres ence] in Blood by Automated countOrdered By: Marychuy Kyle on 10-06-2023 Nucleated RBC Auto Ql (Bld) 0.2 /100{WBC} 0-0.5 [facility] Platelet mean volume [Entiti c volume] in Blood by Automated countOrdered By: Marychuy Kyle on 10-06-2023 Platelet mean volume (Bld) [Entitic vol] 7.5 fL Normal 6.3-10.7 [facility] Comment on above: Performed By: #### C BC, CMP, HCGQNT #### [facility] [address] [place] [address] [place] Platelets [#/volume] in Bloo d by Automated countOrdered By: Marychuy Kyle on 10-06-2023 Platelets (Bld) [#/Vol] 367 10*3/uL Normal 150-450 [facility] Comment on above: Performed By: #### C BC, CMP, HCGQNT #### [facility] [address] [place] [address] [place] Potassium [Moles/volume] in Serum or PlasmaOrdered By: Marychuy Kyle on 10-06-2023 Potassium [Moles/Vol] 4.1 mmol/L Normal 3.5-5.1 [facility] Comment on above: Performed By: #### C BC, CMP, HCGQNT #### [facility] [address] [place] [address] [place] Protein Auto test strip (U) [Mass/Vol]Ordered By: Marychuy Kyle on 10-06-2023 Protein (U) [Mass/Vol] Negative Negative [facility] Protein [Mass/volume] in Ser um or PlasmaOrdered By: Marychuy Kyle on 10-06-2023 Protein [Mass/Vol] 7.4 g/dL Normal 6.4-8.9 [facility] Comment on above: Performed By: #### C BC, CMP, HCGQNT #### [address] Serum globulin measurement b y calculation (mass/volume)Ordered By: Marychuy Bullimore on 10-06-2023 Globulin (S) [Mass/Vol] 3.6 g/dL Normal [facility] Comment on above: Performed By: #### C BC, CMP, HCGQNT #### [address] Serum or plasma albumin/glob ulin mass ratioOrdered By: Marychuy Bullimore on 10-06-2023 Albumin/Globulin [Mass ratio] 1.1 {ratio} [facility] Comment on above: Performed By: #### C BC, CMP, HCGQNT #### [address] Serum or plasma anion gap de terminationOrdered By: Marychuy Bullimore on 10-06-2023 Anion gap [Moles/Vol] 12.6 mmol/L Normal 6.0-15.0 [facility] Comment on above: Performed By: #### C BC, CMP, HCGQNT #### [address] Sodium [Moles/volume] in Ser um or PlasmaOrdered By: Marychuy Bullimore on 10-06-2023 Sodium [Moles/Vol] 139 mmol/L Normal 136-145 [facility] Comment on above: Performed By: #### C BC, CMP, HCGQNT #### [address] Specific gravity Auto test s trip (U) [Rel density]Ordered By: Marychuy Bullimore on 10-06-2023 Specific gravity (U) [Rel density] 1.017 1.001-1.030 [facility] Urea nitrogen [Mass/volume] in Serum or PlasmaOrdered By: Marychuy Bullimore on 10-06-2023 Urea nitrogen [Mass/Vol] 7 mg/dL Normal 7-25 [facility] Comment on above: Performed By: #### C BC, CMP, HCGQNT #### [facility] [address] Urine clarity by refractomet ry automatedOrdered By: Marychuy Kyle on 10-06-2023 Clarity Refractometry automated (U) Clear Clear [facility] Urine glucose measurement by automated test strip (mass/volume)Ordered By: Marychuy Kyle on 10-06-2023 Glucose Auto test strip (U) [Mass/Vol] Normal mg/dL Normal [facility] Urine hemoglobin detection b y automated test stripOrdered By: Marychuy Jeronimoimdianne on 10-06-2023 Hemoglobin Auto test strip Ql (U) Negative Negative [facility] Urine leukocyte esterase det ection by automated test stripOrdered By: Marychuy Kyle on 10-06-2023 Leukocyte esterase Auto test strip Ql (U) 1+ Negative [facility] Urine pH measurement by auto mated test stripOrdered By: Marychuy Kyle on 10-06-2023 pH (U) 7.0 [pH] Normal 5.0-9.0 [facility] Comment on above: Order Comment: NEED MORE SPECIMEN Name Collection Type:: Clean-Voided Midstream Performed By: #### A DDONUAPLUS #### [facility] [address] Urobilinogen Auto test strip (U) [Mass/Vol]Ordered By: Marychuy Kyle on 10-06-2023 Urobilinogen (U) [Mass/Vol] Normal mg/dL Normal [facility] CNPMerced 09-11-2023 LIZ Telephone (MARTIN) -------- JALEESA ARRIETA ([id number]) 1990 F Date Time Provider Department 09/11/23 [...] Date Reviewed: 08/20/2023 Reviewed by: Tonya Senior APRN.MANAGER [employer] - Fully Assessed Reason for Visit: Results [...] Encounter Status:Closed by TONYA SENIOR on 09/23/23 [facility] NICOTINE AND METAB, URon URIN ANABASINE QUANT <5 Normal [facility] Comment on above: Order Comment: Speci men Type: URINE SPECIMEN Ordering Facility: [facility] Address: [address] [place] [address] Performed By: #### U NICOT #### [facility] CLIA [id number] [address] [place] [address] URIN COTININE QUANT <[address] [facility] Comment on above: Order Comment: Speci men Type: URINE SPECIMEN Ordering Facility: [facility] Address: [address] [place] [address] Performed By: #### U NICOT #### [facility] CLIA [id number] [address] [place] [address] URIN NICOTINE QUANT <[address] [facility] Comment on above: Order Comment: Speci men Type: URINE SPECIMEN Ordering Facility: [facility] Address: [address] [place] [address] Result Comment: INTE RPRETIVE INFORMATION: Nicotine and Metabolites, Urine, Quantitative Methodology: Quantitative Liquid Chromatography-Tandem Mass Spectrometry Positive cutoff: Nicotine 15 ng/mL Cotinine 15 ng/mL 5-DW-Sbqgjnvm 50 ng/mL Anabasine 5 ng/mL For medical [...] developed and its performance characteristics determined by [facility]. It has not been cleared or approved by the [place] Food and Drug Administration. This test was performed in a CLIA certified laboratory and is intended for clinical purposes. Performed By: [facility] [address] [place] [address] Blower Room Attendant: Rex Zuleta MD, PhD CLIA Number: [id number] Performed By: #### U NICOT #### [facility] CLIA [id number] [address] [place] [address] URINE 3 [place] COTININE <[address] [facility] Comment on above: Order Comment: Speci men Type: URINE SPECIMEN Ordering Facility: [facility] Address: [address] [place] [address] Performed By: #### U NICOT #### [facility] CLIA [id number] [address] [place] [address] TOXICOLOGY SCREEN, ROUTINE U RINEon 09-08-2023 Amphetamines Confirm (U) [Mass/Vol] Negative Normal Negative [facility] Comment on above: Order Comment: Speci men Type: URINE SPECIMEN Ordering Facility: [facility] Address: [address] [place] [address] Result Comment: Cuto ff threshold at 1000 ng/mL. Performed By: #### U TOX2 #### [facility] CLIA [id number] [address] [place] [address] [place] BARBITURATES, URINE Negative Normal Negative [facility] Comment on above: Order Comment: Speci men Type: URINE SPECIMEN Ordering Facility: [facility] Address: [address] [place] [address] Result Comment: Cuto ff threshold at 200 ng/mL. Performed By: #### U TOX2 #### [facility] CLIA [id number] [address] [place] [address] [place] BENZODIAZEPINES, UR Negative Normal Negative [facility] Comment on above: Order Comment: Speci men Type: URINE SPECIMEN Ordering Facility: [facility] Address: [address] [place] [address] Result Comment: Cuto ff threshold at 200 ng/mL. Performed By: #### U TOX2 #### [facility] CLIA [id number] [address] [place] [address] [place] Cannabinoids Screen Ql (U) Negative Normal Negative [facility] Comment on above: Order Comment: Speci men Type: URINE SPECIMEN Ordering Facility: [facility] Address: [address] [place] [address] Result Comment: Cuto ff threshold at 50 ng/mL. Performed By: #### U TOX2 #### [facility] CLIA [id number] [address] [place] [address] [place] Cocaine Ql (U) Negative Normal Negative [facility] Comment on above: Order Comment: Speci men Type: URINE SPECIMEN Ordering Facility: [facility] Address: [address] [place] [address] Result Comment: Cuto ff threshold at 300 ng/mL. Performed By: #### U TOX2 #### [facility] CLIA [id number] [address] [place] [address] [place] Ethanol (U) [Mass/Vol] <11 Normal <11 [facility] Comment on above: Order Comment: Speci men Type: URINE SPECIMEN Ordering Facility: [facility] Address: [address] [place] [address] Performed By: #### U TOX2 #### [facility] CLIA [id number] [address] [place] [address] [place] Opiates Screen Ql (U) Negative Normal Negative [facility] Comment on above: Order Comment: Speci men Type: URINE SPECIMEN Ordering Facility: [facility] Address: [address] [place] [address] Result Comment: Cuto ff threshold at 300 ng/mL. Performed By: #### U TOX2 #### [facility] CLIA [id number] [address] [place] [address] [place] oxyCODONE cutoff Screen (U) [Mass/Vol] Negative Normal Negative [facility] Comment on above: Order Comment: Speci men Type: URINE SPECIMEN Ordering Facility: [facility] Address: [address] [place] [address] Result Comment: Cuto ff threshold at 100 ng/mL. Performed By: #### U TOX2 #### [facility] CLIA [id number] [address] [place] [address] [place] Phencyclidine Ql (U) Negative Normal Negative [facility] Comment on above: Order Comment: Speci men Type: URINE SPECIMEN Ordering Facility: [facility] Address: [address] [place] [address] Result Comment: Cuto ff threshold at 25 ng/mL. Performed By: #### U TOX2 #### [facility] CLIA [id number] [address] [place] [address] [place] 25(OH)D3 [facility] 25-hydroxyvitamin D3 [Mass/Vol] 11.9 ng/mL Low 31.0-80.0 [facility] Comment on above: Order Comment: Speci men Type: BLOOD SPECIMEN Ordering Facility: [facility] Address: [address] [place] [address] Performed By: #### 2 276-4, 2132-9, 2284-8 #### [facility] CLIA [id number] [address] [place] [address] [place] CBC W Auto Differential pane l (Bld)on 09-05-2023 Basophils (Bld) [#/Vol] 10*3/uL Normal <0.11 [facility] Comment on above: Order Comment: Speci men Type: BLOOD SPECIMEN Ordering Facility: [facility] Address: [address] [place] [address] Performed By: #### 2 276-4, 2132-01, 2283-12 #### [facility] CLIA [id number] [address] [place] [address] [place] Basophils/100 WBC (Bld) 0.3 % Normal [facility] Comment on above: Order Comment: Speci men Type: BLOOD SPECIMEN Ordering Facility: [facility] Address: [address] [place] [address] Performed By: #### 2 276-4, 2132-01, 2283-12 #### [facility] CLIA [id number] [address] [place] [address] [place] Differential cell count method Nom (Bld) Auto Normal [facility] Comment on above: Order Comment: Speci men Type: BLOOD SPECIMEN Ordering Facility: [facility] Address: [address] [place] [address] Performed By: #### 2 276-4, 2132-01, 2283-12 #### [facility] CLIA [id number] [address] [place] [address] [place] Eosinophils (Bld) [#/Vol] 0.09 10*3/uL Normal <0.46 [facility] Comment on above: Order Comment: Speci men Type: BLOOD SPECIMEN Ordering Facility: [facility] Address: [address] [place] [address] Performed By: #### 2 276-4, 2132-01, 2283-12 #### [facility] CLIA [id number] [address] [place] [address] [place] Eosinophils/100 WBC (Bld) 1.3 % Normal [facility] Comment on above: Order Comment: Speci men Type: BLOOD SPECIMEN Ordering Facility: [facility] Address: [address] [place] [address] Performed By: #### 2 276-4, 2132-01, 2283-12 #### [facility] CLIA [id number] [address] [place] [address] [place] Erythrocyte distribution width (RBC) [Ratio] 12.6 % Normal 11.5-15.0 [facility] Comment on above: Order Comment: Speci men Type: BLOOD SPECIMEN Ordering Facility: [facility] Address: [address] [place] [address] Performed By: #### 2 276-4, 2132-01, 2283-12 #### [facility] CLIA [id number] [address] [place] [address] [place] Hematocrit (Bld) [Volume fraction] 38.0 % Normal 36.0-46.0 [facility] Comment on above: Order Comment: Speci men Type: BLOOD SPECIMEN Ordering Facility: [facility] Address: [address] [place] [address] Performed By: #### 2 276-4, 2132-01, 2283-12 #### [facility] CLIA [id number] [address] [place] [address] [place] Hemoglobin (Bld) [Mass/Vol] 12.8 g/dL Normal 11.5-15.5 [facility] Comment on above: Order Comment: Speci men Type: BLOOD SPECIMEN Ordering Facility: [facility] Address: [address] [place] [address] Performed By: #### 2 276-4, 2132-01, 2283-12 #### [facility] CLIA [id number] [address] [place] [address] [place] Immature granulocytes (Bld) [#/Vol] 10*3/uL Normal <0.10 [facility] Comment on above: Order Comment: Speci men Type: BLOOD SPECIMEN Ordering Facility: [facility] Address: [address] [place] [address] Performed By: #### 2 276-4, 2132-01, 2283-12 #### [facility] CLIA [id number] [address] [place] [address] [place] Immature granulocytes/100 WBC (Bld) 0.1 % Normal [facility] Comment on above: Order Comment: Speci men Type: BLOOD SPECIMEN Ordering Facility: [facility] Address: [address] [place] [address] Performed By: #### 2 276-4, 9, 2283-12 #### [facility] CLIA [id number] [address] [place] [address] [place] Lymphocytes (Bld) [#/Vol] 3.49 10*3/uL Normal 1.00-4.00 [facility] Comment on above: Order Comment: Speci men Type: BLOOD SPECIMEN Ordering Facility: [facility] Address: [address] [place] [address] Performed By: #### 2 276-4, 2132-01, 2283-12 #### [facility] CLIA [id number] [address] [place] [address] [place] Lymphocytes/100 WBC (Bld) 48.6 % Normal [facility] Comment on above: Order Comment: Speci men Type: BLOOD SPECIMEN Ordering Facility: [facility] Address: [address] [place] [address] Performed By: #### 2 276-4, 2132-01, 2283-12 #### [facility] CLIA [id number] [address] [place] [address] [place] MCH (RBC) [Entitic mass] 30.0 pg Normal 26.0-34.0 [facility] Comment on above: Order Comment: Speci men Type: BLOOD SPECIMEN Ordering Facility: [facility] Address: [address] [place] [address] Performed By: #### 2 276-4, 2132-01, 2283-12 #### [facility] CLIA [id number] [address] [place] [address] [place] MCHC (RBC) [Mass/Vol] 33.7 g/dL Normal 30.5-36.0 [facility] Comment on above: Order Comment: Speci men Type: BLOOD SPECIMEN Ordering Facility: [facility] Address: [address] [place] [address] Performed By: #### 2 276-4, 2132-01, 2283-12 #### [facility] CLIA [id number] [address] [place] [address] [place] MCV (RBC) [Entitic vol] 89.2 fL Normal 80.0-100.0 [facility] Comment on above: Order Comment: Speci men Type: BLOOD SPECIMEN Ordering Facility: [facility] Address: [address] [place] [address] Performed By: #### 2 276-4, 2132-01, 2283-12 #### [facility] CLIA [id number] [address] [place] [address] [place] Monocytes (Bld) [#/Vol] 0.48 10*3/uL Normal <0.87 [facility] Comment on above: Order Comment: Speci men Type: BLOOD SPECIMEN Ordering Facility: [facility] Address: [address] [place] [address] Performed By: #### 2 276-4, 2132-01, 2283-12 #### [facility] CLIA [id number] [address] [place] [address] [place] Monocytes/100 WBC (Bld) 6.7 % Normal [facility] Comment on above: Order Comment: Speci men Type: BLOOD SPECIMEN Ordering Facility: [facility] Address: [address] [place] [address] Performed By: #### 2 276-4, 2132-01, 2283-12 #### [facility] CLIA [id number] [address] [place] [address] [place] Neutrophils (Bld) [#/Vol] 3.09 10*3/uL Normal 1.45-7.50 [facility] Comment on above: Order Comment: Speci men Type: BLOOD SPECIMEN Ordering Facility: [facility] Address: [address] [place] [address] Performed By: #### 2 276-4, 2132-01, 2283-12 #### [facility] CLIA [id number] [address] [place] [address] [place] Neutrophils/100 WBC (Bld) 43.0 % Normal [facility] Comment on above: Order Comment: Speci men Type: BLOOD SPECIMEN Ordering Facility: [facility] Address: [address] [place] [address] Performed By: #### 2 276-4, 2132-01, 2283-12 #### [facility] CLIA [id number] [address] [place] [address] [place] Nucleated RBC (Bld) [#/Vol] 10*3/uL Normal <0.01 [facility] Comment on above: Order Comment: Speci men Type: BLOOD SPECIMEN Ordering Facility: [facility] Address: [address] [place] [address] Performed By: #### 2 276-4, 2132-01, 2283-12 #### [facility] CLIA [id number] [address] [place] [address] [place] Nucleated RBC/100 WBC (Bld) [Ratio] 0.0 /100 WBC Normal [facility] Comment on above: Order Comment: Speci men Type: BLOOD SPECIMEN Ordering Facility: [facility] Address: [address] [place] [address] Performed By: #### 2 276-4, 2132-01, 2283-12 #### [facility] CLIA [id number] [address] [place] [address] [place] Platelet mean volume (Bld) [Entitic vol] 9.2 fL Normal 9.0-12.7 [facility] Comment on above: Order Comment: Speci men Type: BLOOD SPECIMEN Ordering Facility: [facility] Address: [address] [place] [address] Performed By: #### 2 276-4, 2132-01, 8 #### [facility] CLIA [id number] [address] [place] [address] [place] Platelets (Bld) [#/Vol] 361 10*3/uL Normal 150-400 [facility] Comment on above: Order Comment: Speci men Type: BLOOD SPECIMEN Ordering Facility: [facility] Address: [address] [place] [address] Performed By: #### 2 276-4, 9, 2283-12 #### [facility] CLIA [id number] [address] [place] [address] [place] RBC (Bld) [#/Vol] 4.26 10*6/uL Normal 3.90-5.[address] [facility] Comment on above: Order Comment: Speci men Type: BLOOD SPECIMEN Ordering Facility: [facility] Address: [address] [place] [address] Performed By: #### 2 276-4, 2132-01, 2283-12 #### [facility] CLIA [id number] [address] [place] [address] [place] WBC (Bld) [#/Vol] 7.18 10*3/uL Normal 3.70-11.[address] [facility] Comment on above: Order Comment: Speci men Type: BLOOD SPECIMEN Ordering Facility: [facility] Address: [address] [place] [address] Performed By: #### 2 276-4, 9, 2283-12 #### [facility] CLIA [id number] [address] [place], [place] [address] [place] Comprehensive metabolic 2000 panelon 09-05-2023 Albumin [Mass/Vol] 4.0 g/dL Normal 3.9-4.9 [facility] Comment on above: Order Comment: Speci men Type: BLOOD SPECIMEN Ordering Facility: [facility] Address: [address] [place] [address] Performed By: #### 2 4323-8 #### [facility] CLIA [id number] [address] [place] [address] ALP [Catalytic activity/Vol] 91 U/L Normal 34-123 [facility] Comment on above: Order Comment: Speci men Type: BLOOD SPECIMEN Ordering Facility: [facility] Address: [address] [place] [id number] Performed By: #### 2 4323-8 #### [facility] CLIA [id number] [address] [place] [address] ALT [Catalytic activity/Vol] 15 U/L Normal 7-38 [facility] Comment on above: Order Comment: Speci men Type: BLOOD SPECIMEN Ordering Facility: [facility] Address: [address] [place] [address] Performed By: #### 2 4323-8 #### [facility] CLIA [id number] [address] [place] [address] Anion gap [Moles/Vol] 10 mmol/L Normal 9-18 [facility] Comment on above: Order Comment: Speci men Type: BLOOD SPECIMEN Ordering Facility: [facility] Address: [address] [place] [id number] Performed By: #### 2 4323-8 #### [facility] CLIA [id number] [address] [place] [address] AST [Catalytic activity/Vol] 13 U/L Normal 13-35 [facility] Comment on above: Order Comment: Speci men Type: BLOOD SPECIMEN Ordering Facility: [facility] Address: [address] [place], [place] [address] Performed By: #### 2 4323-8 #### [facility] CLIA [id number] [address] [place] [address] Bilirubin [Mass/Vol] 0.3 mg/dL Normal 0.2-1.3 [facility] Comment on above: Order Comment: Speci men Type: BLOOD SPECIMEN Ordering Facility: [facility] Address: [address] [place] [address] Performed By: #### 2 4323-8 #### [facility] CLIA [id number] [address] [place] [address] Calcium [Mass/Vol] 9.5 mg/dL Normal 8.5-10.2 [facility] Comment on above: Order Comment: Speci men Type: BLOOD SPECIMEN Ordering Facility: [facility] Address: [address] [place] [id number] Performed By: #### 2 4323-8 #### [facility] CLIA [id number] [address] [place] [address] Chloride [Moles/Vol] 106 mmol/L High 97-105 [facility] Comment on above: Order Comment: Speci men Type: BLOOD SPECIMEN Ordering Facility: [facility] Address: [address] [place] [address] Performed By: #### 2 4323-8 #### [facility] CLIA [id number] [address] [place] [address] CO2 [Moles/Vol] 26 mmol/L Normal 22-30 [facility] Comment on above: Order Comment: Speci men Type: BLOOD SPECIMEN Ordering Facility: [facility] Address: [address] [place] [address] Performed By: #### 2 4323-8 #### [facility] CLIA [id number] [address] [place] [address] Creatinine [Mass/Vol] 0.75 mg/dL Normal 0.58-0.96 [facility] Comment on above: Order Comment: Speci men Type: BLOOD SPECIMEN Ordering Facility: [facility] Address: [address] [place] [address] Performed By: #### 2 4323-8 #### [facility] CLIA [id number] [address] [place] [address] Creatinine and Glomerular filtration rate.predicted panel (S/P/Bld) 109 mL/min/1.73m??? Normal >=60 [facility] Comment on above: Order Comment: Laury bradshaw Type: BLOOD SPECIMEN Ordering Facility: [facility] Address: [address] [place] [address] Result Comment: Stephani mated Glomerular Filtration Rate [...] GFR. Performed By: #### 2 4323-8 #### [facility] CLIA [id number] [address] [place] [address] Glucose [Mass/Vol] 104 mg/dL High 74-99 [facility] Comment on above: Order Comment: Speci augustine Type: BLOOD SPECIMEN Ordering Facility: [facility] Address: [address] [place] [address] Result Comment: The [place] Diabetes Association (ADA) provides guidance for cutoff [...] Standards of Medical Care in Diabetes 2016, [place] Diabetes Association. Diabetes Care. 2016.39(Suppl 1). Performed By: #### 2 4323-8 #### [facility] CLIA [id number] [address] [place] [address] Potassium [Moles/Vol] 4.2 mmol/L Normal 3.7-5.1 [facility] Comment on above: Order Comment: Speci men Type: BLOOD SPECIMEN Ordering Facility: [facility] Address: [address] [place] [address] Performed By: #### 2 4323-8 #### [facility] CLIA [id number] [address] [place] [address] Protein [Mass/Vol] 7.4 g/dL Normal 6.3-8.0 [facility] Comment on above: Order Comment: Speci men Type: BLOOD SPECIMEN Ordering Facility: [facility] Address: [address] [place], [place] [address] Performed By: #### 2 4323-8 #### [facility] CLIA [id number] [address] [place] [address] Sodium [Moles/Vol] 142 mmol/L Normal 136-144 [facility] Comment on above: Order Comment: Speci men Type: BLOOD SPECIMEN Ordering Facility: [facility] Address: [address] [place] [address] Performed By: #### 2 4323-8 #### [facility] CLIA [id number] [address] [place] [address] Urea nitrogen [Mass/Vol] 12 mg/dL Normal 7-21 [facility] Comment on above: Order Comment: Speci men Type: BLOOD SPECIMEN Ordering Facility: [facility] Address: [address] [place] [id number] Performed By: #### 2 4323-8 #### [facility] CLIA [id number] [address] [place] [address] Ferritin SerPl-ncon 2023 Ferritin [Mass/Vol] 86.7 ng/mL Normal 14.7-205.[address] [facility] Comment on above: Order Comment: Speci men Type: BLOOD SPECIMEN Ordering Facility: [facility] Address: [address] [place], [place] [address] Performed By: #### 2 276-4, 2132-9, 2284-8 #### [facility] CLIA [id number] [address] [place] [address] [place] Folate SerPl-mCncon 09-05-19 Folate [Mass/Vol] 12.0 ng/mL Normal >4.7 [facility] Comment on above: Order Comment: Laury bradshaw Type: BLOOD SPECIMEN Ordering Facility: [facility] Address: [address] [place] [address] Performed By: #### 2 276-4, 2131-9, 2283-8 #### [facility] CLIA [id number] [address] [place] [address] [place] H. pylori IgG IA Qlon 2023 H. PYLORI IGG, QUAL Negative Normal Negative [facility] Comment on above: Order Comment: Laury bradshaw Type: BLOOD SPECIMEN Ordering Facility: [facility] Address: [address] [place] [address] Result Comment: Cash ot exclude H. pylori infection if the specimen collected 3-4 weeks after onset of symptoms. Performed By: #### 2 276-4, 2131-9, 2283-8 #### [facility] CLIA [id number] [address] [place] [address] [place] HbA1c (Bld)on 09-05-2023 Average glucose Estimated from glycated hemoglobin (Bld) [Mass/Vol] 108 mg/dL Normal [facility] Comment on above: Order Comment: Laury bradshaw Type: BLOOD SPECIMEN Ordering Facility: [facility] Address: [address] [place] [address] Result Comment: eAG: (Estimated average glucose) is a calculated value from HgbA1c and is community representative of the average blood glucose level in the last 2-3 month period. Performed By: #### 5 5454-3 #### [facility] CLIA [id number] [address] [place] [address] [place] HbA1c (Bld) [Mass fraction] 5.4 % Normal 4.3-5.6 [facility] Comment on above: Order Comment: Speci men Type: BLOOD SPECIMEN Ordering Facility: [facility] Address: [address] [place] [address] Result Comment: [place] Diabetes Association guidelines indicate that patients with HgbA1c in the range 5.7-6.4% are at increased risk for development of diabetes, and intervention by lifestyle modification may be beneficial. HgbA1c greater or equal to 6.5% is considered diagnostic of diabetes. Performed By: #### 5 5454-3 #### [facility] CLIA [id number] [address] [place] [address] [place] Iron and Iron binding capaci ty panelon 09-05-2023 Iron [Mass/Vol] 94 ug/dL Normal 41-186 [facility] Comment on above: Order Comment: Speci men Type: BLOOD SPECIMEN Ordering Facility: [facility] Address: [address] [place] [address] Performed By: #### 5 0190-8, 3016-3, 44422-1 #### [facility] CLIA [id number] [address] [place] [address] [place] #### 21321-1 #### [facility] CLIA [id number] [address] [place] [address] [place] [facility] CLIA [id number] [address] [place] [address] Iron binding capacity [Mass/Vol] 310 ug/dL Normal 232-386 [facility] Comment on above: Order Comment: Speci men Type: BLOOD SPECIMEN Ordering Facility: [facility] Address: [address] [place], [place] [address] Performed By: #### 5 0190-8, 3016-3, 35397-6 #### [facility] CLIA [id number] [address] [place] [address] [place] #### 82188-6 #### [facility] CLIA [id number] [address] [facility] CLIA [id number] [address] [place], [place] [address] Iron/TIBC [Molar ratio] 30.3 % Normal 15.0-57.0 [facility] Comment on above: Order Comment: Speci men Type: BLOOD SPECIMEN Ordering Facility: [facility] Address: [address] [place] [address] Performed By: #### 5 0190-8, 3016-3, 32598-6 #### [facility] CLIA [id number] [address] [place] [address] [place] #### 67562-0 #### [facility] CLIA [id number] [address] [place] [address] [place] [facility] CLIA [id number] [address] [place], [place] [address] Lipid 1996 panelon 4 Cholesterol [Mass/Vol] 179 mg/dL Normal <200 [facility] Comment on above: Order Comment: Speci men Type: BLOOD SPECIMEN Ordering Facility: [facility] Address: [address] [place] [address] Result Comment: <200 mg/dL, Desirable 200-239 mg/dL, Borderline high >239 mg/dL, High Performed By: #### 2 276-4, 2132-01, 8 #### [facility] CLIA [id number] [address] [place] [address] [place] Cholesterol in HDL [Mass/Vol] 45 mg/dL Normal >39 [facility] Comment on above: Order Comment: Speci men Type: BLOOD SPECIMEN Ordering Facility: [facility] Address: [address] [place] [address] Result Comment: 40-5 9 mg/dL, Acceptable >59 mg/dL, High: Negative risk factor for coronary heart disease <40 mg/dL, Low: Positive risk factor for coronary heart disease Performed By: #### 2 276-, 2132-01, 2283-12 #### [facility] CLIA [id number] [address] [place] [address] [place] Cholesterol in LDL [Mass/Vol] 119 mg/dL High <100 [facility] Comment on above: Order Comment: Abbii men Type: BLOOD SPECIMEN Ordering Facility: [facility] Address: [address] [place] [address] Result Comment: <100 mg/dL, Optimal 100-129 mg/dL, Near optimal/above optimal 130-159 mg/dL, Borderline high 160-189 mg/dL, High >189 mg/dL, Very high Secondary prevention optimal LDL Cholesterol levels are recommended to be < 70 mg/dL Performed By: #### 2 276-4, 2132-01, 2283-12 #### [facility] CLIA [id number] [address] [place] [address] [place] Cholesterol in LDL/Cholesterol in HDL [Mass ratio] 2.64 {ratio} High <2.54 [facility] Comment on above: Order Comment: Abbii men Type: BLOOD SPECIMEN Ordering Facility: [facility] Address: [address] [place] [address] Result Comment: Belinda degroot: 1. National Cholesterol Education Program ATP III Guideline At-A-Glance Quick Desk Reference: National Heart, Lung, and Blood [place]. National Institutes of Health. 2001: NIH Publication No. 01-3305. 2. An International Atherosclerosis Society position paper: global recommendations for the management of dyslipidemia: executive summary, Atherosclerosis. 2014: 232(2):410-413. Performed By: #### 2 276-4, 2132-01, 2283-12 #### [facility] CLIA [id number] [address] [place] [address] [place] Cholesterol in VLDL [Mass/Vol] 15 mg/dL Normal <30 [facility] Comment on above: Order Comment: Abbii men Type: BLOOD SPECIMEN Ordering Facility: [facility] Address: [address] [place] [address] Performed By: #### 2 276-4, 2132-01, 2283-12 #### [facility] CLIA [id number] [address] [place], [place] [address] [place] Cholesterol non HDL [Mass/Vol] 134 mg/dL High <130 [facility] Comment on above: Order Comment: Speci men Type: BLOOD SPECIMEN Ordering Facility: [facility] Address: [address] [place] [address] Result Comment: <130 mg/dL, Optimal 130-159 mg/dL, Near optimal/above optimal 160-189 mg/dL, Borderline high 190-219 mg/dL, High >219 mg/dL, Very high Secondary prevention optimal non HDL Cholesterol levels are recommended to be <100 mg/dL Performed By: #### 2 276-4, 2132-01, 2283-12 #### [facility] CLIA [id number] [address] [place] [address] [place] Cholesterol.total/Cho lesterol in HDL [Mass ratio] 3.98 {ratio} Normal <5.10 [facility] Comment on above: Order Comment: Speci men Type: BLOOD SPECIMEN Ordering Facility: [facility] Address: [address] [place] [address] Performed By: #### 2 276-4, 2132-01, 2283-12 #### [facility] CLIA [id number] [address] [place] [address] [place] FASTING TIME 12 hrs Normal [facility] Comment on above: Order Comment: Speci men Type: BLOOD SPECIMEN Ordering Facility: [facility] Address: [address] [place], [place] [address] Performed By: #### 2 276-4, 2132-01, 2283-12 #### [facility] CLIA [id number] [address] [place] [address] [place] Triglyceride [Mass/Vol] 74 mg/dL Normal <150 [facility] Comment on above: Order Comment: Speci men Type: BLOOD SPECIMEN Ordering Facility: [facility] Address: [address] [place] [address] Result Comment: <150 mg/dL, Normal 150-199 mg/dL, Borderline high 200-499 mg/dL, High >499 mg/dL, Very high Performed By: #### 2 276-4, 9, 2283-12 #### [facility] CLIA [id number] [address] [place] [address] [place] NT-proBNP SerPl-mCncon 09-04 Natriuretic peptide.B prohormone N-Terminal [Mass/Vol] 48 pg/mL Normal <125 [facility] Comment on above: Order Comment: Laury bradshaw Type: BLOOD SPECIMEN Ordering Facility: [facility] Address: [address] [place] [address] Performed By: #### 2 276-4, 2132-01, 2283-12 #### [facility] CLIA [id number] [address] [place] [address] [place] TSH SerPl-aCncon 09-05-2023 TSH Qn 6.440 m[IU]/L High 0.270-4.200 [facility] Comment on above: Order Comment: Laury bradshaw Type: BLOOD SPECIMEN Ordering Facility: [facility] Address: [address] [place] [address] Result Comment: If t he patient is , TSH reference range varies by gestational period: First Trimester (weeks 9-12): 0.180-2.990 mIU/L Second Trimester: 0.110-3.980 mIU/L Third Trimester: 0.480-4.710 mIU/L Seth Crews et al. A Practical Approach for the Verifications and Determination of Site- and Trimester-Specific Reference Intervals for Thyroid Function tests in . Thyroid, 2019:29:3:412-420. Zhang Ybarra, et al. 2017 Guidelines of the [place] Thyroid Association for the Diagnosis and Management of Thyroid Disease during and the . Thyroid, 2017:27:3:315-389. Performed By: #### 2 276-4, 2132-01, 2283-12 #### [facility] CLIA [id number] [address] [place] [address] [place] VITAMIN B1 (THIAMINE), WHOLE BLOODon 09-05-2023 Thiamine (Bld) [Moles/Vol] 179.2 nmol/L Normal 84.3-213.3 [facility] Comment on above: Order Comment: Speci men Type: BLOOD SPECIMEN Ordering Facility: [facility] Address: [address] [place] [address] Result Comment: This assay measures the concentration of thiamine diphosphate (TDP), the primary active form of vitamin B1. Approximately 90 percent of vitamin B1 present in whole blood is TDP. Thiamine and thiamine monophosphate, which comprise the remaining 10 percent, are not measured. This test was developed and its performance characteristics determined by [facility] [place] ([facility]). It has not been cleared or approved by the FDA. [facility] is regulated under CLIA as qualified to perform high-complexity testing. This test is used for clinical purposes. It should not be regarded as investigational or for research. Performed By: #### B 1WB #### [facility] CLIA [id number] [address] [place] [address] [place] Vit B12 SerPl-mCncon 024 Cobalamin (Vitamin B12) [Mass/Vol] 612 pg/mL Normal 232-1245 [facility] Comment on above: Order Comment: Speci men Type: BLOOD SPECIMEN Ordering Facility: [facility] Address: [address] [place] [address] Performed By: #### 2 276-4, 2132-9, 2284-8 #### [facility] CLIA [id number] [address] [place] [address] [place] Glucose - FINGER STICKon Glucose [Mass/Vol] 5.4 mg/dL [employer] Other PAP ACOG PANEL 2: 30 to 65on 06-10-2022 . . Normal [facility] Comment on above: Result Comment: Perf ormed at: WB Performed By: #### 4 [id number] #### [facility] [address] [address] [address] Sachin Coates Age Gdln ACOG Testing 30-65 Normal [facility] Comment on above: Performed By: #### 4 [id number] #### [facility] [address] [address] [address] Sachin Coates DIAGNOSIS: Comment Normal [facility] Comment on above: Result Comment: NEGA TIVE FOR INTRAEPITHELIAL LESION OR MALIGNANCY. CELLULAR CHANGES ASSOCIATED WITH INFLAMMATION ARE PRESENT. THIS SPECIMEN WAS RESCREENED PART OF OUR PARLIAMENTARY COUNSEL PROGRAM. Performed at: WB Performed By: #### 4 [id number] #### [facility] [address] [address] [address] Sachin Coates HPV Aptima Negative Normal Negative [facility] Comment on above: Result Comment: This nucleic acid amplification test detects fourteen high-risk HPV types (16,18,31,33,35,39,45,51,52,56,58,59,66,68) without differentiation. Performed at: =G Performed By: #### 4 [id number] #### [facility] [address] [address] [address] Sachin Coates HPV Genotype Reflex Comment Normal [facility] Comment on above: Result Comment: Crit eria not met, HPV Genotype not performed. Performed at: WB Performed By: #### 4 [id number] #### [facility] [address] [place] [address] Dr. Sachin Coates Methodology: Comment Normal [facility] Comment on above: Result Comment: This liquid based ThinPrep(R) pap test was screened with the use of an image guided system. Performed at: WB Performed By: #### 4 [id number] #### [facility] [address] [place] [address] Dr. Sachin Coates Note: Comment Normal [facility] Comment on above: Result Comment: The Pap smear is a screening test designed to aid in the detection of premalignant and malignant conditions of the uterine cervix. It is not a diagnostic procedure and should not be used as the sole means of detecting cervical cancer. Both false-positive and false-negative reports do occur. . Performed at: WB Performed By: #### [id number] #### [facility] [address] [address] [address] Sachin Coates Performed by: Comment Normal [facility] Comment on above: Result Comment: Peyton Beverly, Grey Inspector (ASCP) Performed at: WB Performed By: #### [id number] #### [facility] [address] [address] [address] Sachin Coates QC reviewed by: Comment Normal [facility] Comment on above: Result Comment: Cielo Cochran, Supervisory Grey Inspector (ASCP) Performed at: WB Performed By: #### [id number] #### [facility] [address] [address] [address] Sachin Coates Specimen adequacy: Comment Normal [facility] Comment on above: Result Comment: Sati sfactory for evaluation. Endocervical and/or squamous metaplastic cells (endocervical component) are present. Performed at: WB Performed By: #### [id number] #### [facility] [address] [address] [address] Sachin Coates COVID-19 SOFIAOrdered By: Dario To on 12-02-2021 SARS-CoV+SARS-CoV-2 (COVID-19) Ag IA.rapid Ql (Resp) Negative Negative [facility] Comment on above: This is a duplicate Zuleyma SARS Antigen (PAMELLA) result to be used for statistical tracking purpose only. 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 Comment on above: Result Comment: Estr adiol measurement is performed using the Shruthi J Carlos Access Sensitive Estradiol Immunoassay. Estradiol testing is performed using a different test methodology at [facility] than other [facility]. Direct result comparison should only be made within the same method. REF VALUES EARLY FOLLICULAR 22-115 MID FOLLICULAR 25-115 OVULATORY PEAK 32-517 MID LUTEAL 37-246 POSTMENOPAUSE <15- 25 MALE <15- 32 Performed By: #### G [facility] #### [facility] [address] [place] [address] Estradiol, Serumon E2 [Mass/Vol] 186 pg/mL MG-OBGYN-Ri sm an 310 IVF Work Phone: Comment on above: Estradiol measuremen t is performed using the Shruthi FohBoh Access Sensitive Estradiol Immunoassay. Estradiol testing is performed using a different test methodology at [facility] than other [facility]. Direct result comparison should only be made within the same method.REF VALUESEARLY FOLLICULAR 22-115MID FOLLICULAR 25-115OVULATORY PEAK 32-517MID LUTEAL 37-246POSTMENOPAUSE <15- 25MALE <15- 32 LUTEINIZING HORMONEon 2020 LUTEINIZING HORMONE 9.5 IU/L Normal [facility] Comment on above: Result Comment: Lute inizing Hormone [LH] is performed using the Shruthi FohBoh Access Immunoassay. LH testing is performed using a different test methodology at [facility] than other [facility]. Direct result comparison should only be made within the same method. REF VALUES FOLLICULAR PHASE 1.5-10.0 MID-CYCLE 13.0-72.0 LUTEAL PHASE 0.5-13.0 MENOPAUSE 15.0-65.0 PREPUBERTY 0- 3.0 CHILDREN 0- 6.0 ADULT MALE 1.0- 9.0 Performed By: #### G CCHA #### [facility] [address] [place] [address] Luteinizing Hormone, Serumon 07-08-2020 Lutropin Qn 9.5 {IU/L} IF-UOMKL-Smyf an 310 IVF Work Phone: Comment on above: Luteinizing Hormone [LH] is performed using the Shruthi FohBoh Access Immunoassay. LH testing is performed using a different test methodology at [facility] than other [facility]. Direct result comparison should only be made within the same method.REF VALUESFOLLICULAR PHASE 1.5-10.0MID-CYCLE 13.0-72.0LUTEAL PHASE 0.5-13.0MENOPAUSE 15.0-65.0PREPUBERTY 0- 3.0CHILDREN 0- 6.0ADULT MALE 1.0- 9.0 TYPE + SCREENon 07-06-2020 ABO TYPE A Normal [facility] Comment on above: Performed By: #### T +S #### [facility] [address] [place] [address] RH TYPE Positive Normal [facility] Comment on above: Performed By: #### T +S #### [facility] [address] [place] [address] ESTRADIOLon 07-05-2020 ESTRADIOL 58 pg/mL Normal [facility] Comment on above: Result Comment: Estr adiol measurement is performed using the Shruthi FohBoh Access Sensitive Estradiol Immunoassay. Estradiol testing is performed using a different test methodology at [facility] than other [facility]. Direct result comparison should only be made within the same method. REF VALUES EARLY FOLLICULAR 22-115 MID FOLLICULAR 25-115 OVULATORY PEAK 32-517 MID LUTEAL 37-246 POSTMENOPAUSE <15- 25 MALE <15- 32 Performed By: #### G CCHA #### [facility] [address] [place] [address] Estradiol, Serumon E2 [Mass/Vol] 58 pg/mL MG-OBGYN-Ri sm an 310 IVF Work Phone: Comment on above: Estradiol measuremen t is performed using the Shruthi FohBoh Access Sensitive Estradiol Immunoassay. Estradiol testing is performed using a different test methodology at [facility] than other [facility]. Direct result comparison should only be made within the same method.REF VALUESEARLY FOLLICULAR 22-115MID FOLLICULAR 25-115OVULATORY PEAK 32-517MID LUTEAL 37-246POSTMENOPAUSE <15- 25MALE <15- 32 Hematologyon 07-05-2020 ABO group Nom (Bld) A MG-DROP SHIPMENT CLERK-Rism an 310 IVF Work Phone: Blood group antibody screen Ql Negative TC-WMTJG-Rhab an 310 IVF Work Phone: Rh immune globulin screen (Bld) [Interp] Positive MG-OBGYN-R ism an 310 IVF Work Phone: LUTEINIZING HORMONEon 2020 LUTEINIZING HORMONE 9.2 IU/L Normal [facility] Comment on above: Result Comment: Lute inizing Hormone [LH] is performed using the Shruthi FohBoh Access Immunoassay. LH testing is performed using a different test methodology at [facility] than other [facility]. Direct result comparison should only be made within the same method. REF VALUES FOLLICULAR PHASE 1.5-10.0 MID-CYCLE 13.0-72.0 LUTEAL PHASE 0.5-13.0 MENOPAUSE 15.0-65.0 PREPUBERTY 0- 3.0 CHILDREN 0- 6.0 ADULT MALE 1.0- 9.0 Performed By: #### L H #### [facility] [address] [place] [address] Luteinizing Hormone, Serumon 07-05-2020 Lutropin Qn 9.2 {IU/L} DQ-PUARD-Fhkt an 310 IVF Work Phone: Comment on above: Luteinizing Hormone [LH] is performed using the Shruthi FohBoh Access Immunoassay. LH testing is performed using a different test methodology at [facility] than other [facility]. Direct result comparison should only be made within the same method.REF VALUESFOLLICULAR PHASE 1.5-10.0MID-CYCLE 13.0-72.0LUTEAL PHASE 0.5-13.0MENOPAUSE 15.0-65.0PREPUBERTY 0- 3.0CHILDREN 0- 6.0ADULT MALE 1.0- 9.0 CRIMINAL INVESTIGATOR CUSTOMS - Office Visiton CRIMINAL INVESTIGATOR CUSTOMS - Office Visit Diagnoses/Problems Assessed Morbid obesity [...] Bayron Mccarty MD Reproductive Endocrinology and Infertility [facility] [phone] [place] [phone] [place] 1 Amended By: Bayron Mccarty; Jun 19 2020 10:16 AM ESTProvider Mike Jaleesa is a 30-year-old female who [...] MD Reproductive Endocrinology [facility] [phone] [place] [phone] [place] Appointment Duration:. 25 minutes; greater than half of the time was spent on counseling. 1 Amended By: Bayron Mccarty; Jun 19 2020 10:16 AM ESTChief Complaint follow up History of Present Iewtzzp8806/19/2020 9:30AM JALEESA ARRIETA , 30 year is contacted for an (audio-visual, or audio only) Telehealth visit. Today's visit was provided through telemedicine conferencing: Using Cursogram platform. Consent: The concept of telemedicine? has [...] is a telehealth appointment Results/Data HCG, Beta Ezlmikgjmzjr17Kjp4409 11:58AMBayron Mccarty Test NameResultFlagReference HCG, Beta Quantitative<2 [...] HCG measurement is performed using the Shruthi [place] Access Immunoassay which detects intact HCG and free beta HCG subunit. This test is not indicated for use as a tumor marker. HCG testing is performed using a different test methodology at [facility] than other [facility]. Direct result comparison should only be made within the same method. REF VALUES NON FEMALE <5 MALES <5 Progesterone, Mjugb81Ubg6426 11:58AMBayron Mccarty Test NameResultFlagReference Progesterone, Serum10.5 ng/mL REF VALUES MALE <0.3- 1.2 FOLLICULAR PHASE <0.3- 1.4 LUTEAL PHASE 3.3-25.6 MID-LUTEAL PHASE 4.4-28.0 POSTMENOPAUSAL <0.3- 0.7 FEMALES: 1ST TRIMESTER 11.2- 90.0 2ND TRIMESTER 25.6- 89.4 3RD TRIMESTER 48.4-422.5 . Patients receiving DHEA-S supplements may show false elevation of progesterone for results near 1.0 ng/mL. Contact laboratory at [phone] if alternative testing is needed. CMV IgG and IgM [id number] 11:58AMBayron Mccarty Test NameResultFlagReference CMV IgG AntibodyREACTIVEASee Below Reference Range: NONREACTIVE CMV IGM [id number] 11:58AMBayron Mccarty Test NameResultFlagReference CMV IGM AB<30.00 [...] testing in two or more weeks. Xray Ygxrbswowrikokdapwo61Sqg 2020 12:00AMBayron Mccarty [Mar 28, 2020 9:43AM Bayron Mccarty] Reason: Unspecified for Xray Hysterosalpingogram Test NameResultFlagReference Xray Hysterosalpingogram Please click on the link to view the study images Anti Mullerian [id number] 12:03PMBayron Mccarty Test NameResultFlagReference Anti Mullerian Hormone6.36 ng/mL For assays employing antibodies, the possibility exists for interference by heterophile antibodies in the samples.1 1.Oswald Brunner Interferences in Immunoassays - still a threat. Clin. Chem. 2000; 46: 6480-3063. This test was developed and its performance characteristics determined by [employer]. It has not been cleared or approved by the Food and Drug Administration. Reference Range: Females 26 - 30y: 1.03 - 11.10 Median 4.20 AMH concentrations of >= 1.06 ng/mL is correlated with a better response to ovarian stimulation, produced more retrievable oocytes and higher odds of live according to Carey et al. Fertility and Sterility. 2010: 94:6779-4720. The current AMH test method correlates with [...] exclude an AMH-secreting ovarian tumor. Rubella IgG Qeonpcdm32Eul5188 12:03PMBaryon Mccarty Test NameResultFlagReference Rubella IgG AntibodyPOSITIVE SOURCE: [...] TSH WITH REFLEX TO FREE T4 IF [id number] 12:03PMBayron Mccarty Test NameResultFlagReference Thyroid Stimulating Hormone, Serum2.17 mIU/LSee Below Reference Range: 0.44 - 3.98 TSH testing is performed using different testing methodology at [facility] than at other [facility]. Direct result comparisons should only be made within the same method. Varicella Zoster IgG Tnjisawp73Jno0755 12:03PMBerryBayron mccarthy Test NameResultFlagReference Varicella Zoster IgG AntibodyNegativeNEGATIVE SOURCE: [...] altered results in serological assays. Vitamin D 25-Dhosfuq60Zdm9209 12:03PMBibiana Bayron Test NameResultFlagReference Vitamin D 25-Hydroxy, Level17 ng/mLA . DEFICIENCY: < 20 NG/ML INSUFFICIENCY: 20-29 NG/ML SUFFICIENCY: 30-100 NG/ML THIS ASSAY ACCURATELY QUANTIFIES THE SUM OF VITAMIN D3, 25-HYDROXY AND VIT D2,25-HYDROXY. { 17-Hydroxyprogesterone, Pakch14Mvb8592 12:03Shira Bayron Test NameResultFlagReference 17-Hydroxyprogesterone, Serum33 ng/dL Unable [...] Endocrinol Metab. 1991;73:674-686; J Clin Endocrinol Metab. 1989;69;8299-4039; J Clin Endocrinol Metab. 1994;78:226-270. Pediatr Res 1988;23:525-529. MedLinePlus (accessed 6/16/14). This test was developed and its analytical performance characteristics have been determined by [employer] [place]. It has not been cleared or approved by the U.S. Food and Drug Administration. This assay has been validated pursuant to the CLIA regulations and is used for clinical purposes. DHEA Sulfate, Qnndz97Agh3012 12:03PMBibianaBayron Test NameResultFlagReference DHEA Sulfate, Iepne011 ug/dL65 - 395 MATURITY-BASED REFERENCE RANGES: PUBERTAL [...] laboratory for further information. Testosterone Free + Tywao82Lnz4755 12:03PMBerryBayron mccarthy Test NameResultFlagReference Testosterone, Total63 ng/dLH2-45 For additional information, please refer to http://education.Citrus/faq/ TotalTestosteroneLCMSMSF AQ165 (This link is being provided for informational/ educational purposes only.) This test was developed and its analytical performance characteristics have been determined by [employer]. It has not been cleared or approved by the U.S. Food and Drug Administration. This assay has been validated pursuant to the CLIA regulations and is used for clinical purposes. Testosterone, Free Serum8.8 pg/mLH0.1-6.4 This test was developed and its analytical performance characteristics have been determined by [employer] [place]. It has not been cleared or approved by the U.S. Food and Drug Administration. This assay has been validated pursuant to the CLIA regulations and is used for clinical purposes. Hemoglobin [id number] 12:03PMBibiana Bayron Test NameResultFlagReference Hemoglobin A1C, Level5.5 % Diagnosis of Diabetes-Adults Non-Diabetic: < or = 5.6% Increased risk for developing diabetes: 5.7-6.4% Diagnostic of diabetes: > or = 6.5% . Monitoring of Diabetes Age (y) Therapeutic Goal (%) Adults: >18 <7.0 Pediatrics: 13-18 <7.5 7-12 <8.0 0- 6 7.5-8.5 [place] [employer]. Diabetes Care 33(S1), May 2009. Estimated Average Zzrsbsu522 MG/DL GC + Chlamydia By Amplified Vgqmjpmrg29Coh0873 12:03PMBayron Mccarty Test NameResultFlagReference N.GONORRHEA,AMPLIFIEDNEG ATIVENegative SOURCE: Urine Chlamydia Trach, AmplifiedNEGATIVENegativ e Hepatitis B Surface Jyddxvu57Hfn8952 12:03PMBayron Mccarty Test NameResultFlagReference Hep.B Surface AgNONREACTIVESee Below Reference Range: NONREACTIVE Biotin interference may cause falsely decreased results. Patients taking a Biotin dose of up to 5 mg/day should refrain from taking Biotin for 24 hours before sample collection. Providers may contact their local laboratory for further information. Hepatitis C Antibody [id number] 12:03PMBayron Mccarty NameResultRefduncane Hepatitis C-AntibodyNONREACTIVESee Below Reference Range: NONREACTIVE Results from patients taking biotin supplements or receiving high-dose biotin therapy should be interpreted with caution due to possible interference with this test. Providers may contact their local laboratory for further information. HIV 1/2 ANTIGEN/ANTIBODY SCREEN WITH REFLEX TO [id number] 12:03PMBayron Mccarty NameResultRefereoneliae HIV 1/2 AG/AB SCREENNONREACTIVESee Below Reference Range: NONREACTIVE HIV Ag/Ab screen is performed using the Siemens DrDoctorllNvidia HIV Ag/Ab Combo assay which detects the presence of HIV p24 antigen as well as antibodies to HIV-1 (Group M and O) and HIV-2. SYPHILIS SCREENING WITH NVJIIM71Enw4076 12:03PMBayron Mccarty NameResultFlagRefereoneliae SYPHILIS TOTAL ANTIBODYNONREACTIVESee Below [...] weeks. Performed By: #### C MVM2 #### [facility] [address] [place] [address] CMV IGG AND IGM ABon 020 CMV IGG AB REACTIVE Abnormal NONREACTIVE [facility] Comment on above: Performed By: #### C MV2 #### [facility] [address] [place] [address] PROGESTERONEon 04-16-2020 PROGESTERONE 10.5 ng/mL Normal [facility] Comment on above: Result Comment: REF VALUES MALE <0.3- 1.2 FOLLICULAR PHASE <0.3- 1.4 LUTEAL PHASE 3.3-25.6 MID-LUTEAL PHASE 4.4-28.0 POSTMENOPAUSAL <0.3- 0.7 FEMALES: 1ST TRIMESTER 11.2- 90.0 2ND TRIMESTER 25.6- 89.4 3RD TRIMESTER 48.4-422.5 . Patients receiving DHEA-S supplements may show false elevation of progesterone for results near 1.0 ng/mL. Contact laboratory at [phone] if alternative testing is needed. Performed By: #### P BOBBY #### [facility] [address] [place] [address] HCG,BETA-QUANTITATIVEon HCG,BETA-QUANTITATIVE <[address] [facility] [...] HCG measurement is performed using the Shruthi [place] Access Immunoassay which detects intact HCG and free beta HCG subunit. This test is not indicated for use as a tumor marker. HCG testing is performed using a different test methodology at [facility] than other [facility]. Direct result comparison should only be made within the same method. REF VALUES NON FEMALE <5 MALES <5 Performed By: #### H CGQU #### [address] [id number] CRIMINAL INVESTIGATOR [employer]USTOMS - Office Visiton CRIMINAL INVESTIGATOR CUSTOMS - Office Visit Chief Complaint An interactive [...] test results. Roby JEWELL. History of Present Xvpkynm6604/14/2020 9:30AM JALEESA PEREZON , 30 year is contacted for an (audio-visual, or audio only) Telehealth visit. Today's visit was provided through telemedicine conferencing: Using Cursogram platform. Consent: The concept of telemedicine? has [...] 25 MCG (1000 UT) Oral Tablet; Therapy: [id number] to Recorded Dispense: 0 Days ; #: Sufficient Tablet; Refill: 0; KEVIN = N; Record; Last Updated By: Breezy Jasso; 2020 1:15:24 PM Vitals Vital Signs Recorded: 66Bhf9473 09:08AM Height5 ft 6 in Liicvg947 lb BMI Bixrvrcnpz40.81 BSA Calculated2.34 ZBD70Eiz4149 Gravida1 Para0 Pain Scale0 Physical Exam This is a telehealth appointment Results/Data Anti Mullerian [id number] 12:03PMBayron Mccarty Test NameResultFlagReference Anti Mullerian Hormone6.36 ng/mL For assays employing antibodies, the possibility exists for interference by heterophile antibodies in the samples.1 1.Oswald Crews. Interferences in Immunoassays - still a threat. Clin. Chem. 2000; 46: 4602-4855. This test was developed and its performance characteristics determined by [employer]. It has not been cleared or approved by the Food and Drug Administration. Reference Range: Females 26 - 30y: 1.03 - 11.10 Median 4.20 AMH concentrations of >= 1.06 ng/mL is correlated with a better response to ovarian stimulation, produced more retrievable oocytes and higher odds of live according to Gleicher et al. Fertility and Sterility. 2010: 94:3280-0141. The current AMH test method correlates with [...] exclude an AMH-secreting ovarian tumor. Anti Mullerian Bdwyyzw02Via5789 12:03PMBayron Mccarty Test NameResultFlagReference Anti Mullerian Hormone6.36 ng/mL For assays employing antibodies, the possibility exists for interference by heterophile antibodies in the samples.1 1.Oswald Crews. Interferences in Immunoassays - still a threat. Clin. Chem. 2000; 46: 0479-8589. This test was developed and its performance characteristics determined by [employer]. It has not been cleared or approved by the Food and Drug Administration. Reference Range: Females 26 - 30y: 1.03 - 11.10 Median 4.20 AMH concentrations of >= 1.06 ng/mL is correlated with a better response to ovarian stimulation, produced more retrievable oocytes and higher odds of live according to Gleicher et al. Fertility and Sterility. 2010: 94:2011-5298. The current AMH test method correlates with [...] exclude an AMH-secreting ovarian tumor. Rubella IgG Vubnwgsc32Uyw2720 12:03PMBayron Mccarty Test NameResultFlagReference Rubella IgG AntibodyPOSITIVE [...] TSH WITH REFLEX TO FREE T4 IF [id number] 12:03PMBayron Mccarty Test NameResultFlagReference Thyroid Stimulating Hormone, Serum2.17 mIU/LSee Below Reference Range: 0.44 - 3.98 TSH testing is performed using different testing methodology at [facility] than at other [facility]. Direct result comparisons should only be made within the same method. Varicella Zoster IgG Ibgfexnt04Oym4853 12:03PMBayron Mccarty Test NameResultFlagReference Varicella Zoster IgG [...] altered results in serological assays. Vitamin D 25-Yuwzhxp39Ssl0109 12:03PMBayron Mccarty Test NameResultFlagReference Vitamin D 25-Hydroxy, Level17 ng/mLA . DEFICIENCY: < 20 NG/ML INSUFFICIENCY: 20-29 NG/ML SUFFICIENCY: 30-100 NG/ML THIS ASSAY ACCURATELY QUANTIFIES THE SUM OF VITAMIN D3, 25-HYDROXY AND VIT D2,25-HYDROXY. { 17-Hydroxyprogesterone, Sqwpw10Fsx8941 12:03PMBayron Mccarty Test NameResultFlagReference 17-Hydroxyprogesterone, Serum33 ng/dL [...] Endocrinol Metab. 1991;73:674-686; J Clin Endocrinol Metab. 1989;69;4818-4370; J Clin Endocrinol Metab. 1994;78:226-270. Pediatr Res 1988;23:525-529. MedLinePlus (accessed 10/25/13). This test was developed and its analytical performance characteristics have been determined by [employer] [place]. It has not been cleared or approved by the U.S. Food and Drug Administration. This assay has been validated pursuant to the CLIA regulations and is used for clinical purposes. DHEA Sulfate, Aqizh63Moa0699 12:03Bayron Silva Test NameResultFlagReference DHEA Sulfate, Rdbts566 ug/dL65 - 395 MATURITY-BASED REFERENCE RANGES: PUBERTAL [...] laboratory for further information. Testosterone Free + Trkyj24Ldy5195 12:03PMBayron Mccarty Test NameResultFlagReference Testosterone, Total63 ng/dLH2-45 For additional information, please refer to http://education.Citrus/faq/ TotalTestosteroneLCMSMSF AQ165 (This link is being provided for informational/ educational purposes only.) This test was developed and its analytical performance characteristics have been determined by [employer] [place]. It has not been cleared or approved by the U.S. Food and Drug Administration. This assay has been validated pursuant to the CLIA regulations and is used for clinical purposes. Testosterone, Free Serum8.8 pg/mLH0.1-6.4 This test was developed and its analytical performance characteristics have been determined by [employer] [place]. It has not been cleared or approved by the U.S. Food and Drug Administration. This assay has been validated pursuant to the CLIA regulations and is used for clinical purposes. Hemoglobin [id number] 12:03PMBayron Mccarty Test NameResultFlagReference Hemoglobin A1C, Level5.5 % Diagnosis of Diabetes-Adults Non-Diabetic: < or = 5.6% Increased risk for developing diabetes: 5.7-6.4% Diagnostic of diabetes: > or = 6.5% . Monitoring of Diabetes Age (y) Therapeutic Goal (%) Adults: >18 <7.0 Pediatrics: 13-18 <7.5 7-12 <8.0 0- 6 7.5-8.5 [place] [employer]. Diabetes Care 33(S1), May 2009. Estimated Average Pddaflm831 MG/DL GC + Chlamydia By Amplified [id number] 12:03PMBayron Mccarty Test NameResultFlagReference N.GONORRHEA,AMPLIFIEDNEG ATIVENegative SOURCE: Urine Chlamydia Trach, AmplifiedNEGATIVENegativ e Hepatitis B Surface Whiuksw47Cmh8107 12:03PMBayron Mccarty Test NameResultFlagReference Hep.B Surface AgNONREACTIVESee Below Reference Range: NONREACTIVE Biotin interference may cause falsely decreased results. Patients taking a Biotin dose of up to 5 mg/day should refrain from taking Biotin for 24 hours before sample collection. Providers may contact their local laboratory for further information. Hepatitis C Antibody [id number] 12:03PMBayron Mccarty Test NameResultFlagReference Hepatitis C-AntibodyNONREACTIVESee Below Reference Range: NONREACTIVE Results from patients taking biotin supplements or receiving high-dose biotin therapy should be interpreted with caution due to possible interference with this test. Providers may contact their local laboratory for further information. HIV 1/2 ANTIGEN/ANTIBODY SCREEN WITH REFLEX TO [id number] 12:03PMBayron Mccarty Test NameResultFlagReference HIV 1/2 AG/AB SCREENNONREACTIVESee Below Reference Range: NONREACTIVE HIV Ag/Ab screen is performed using the Siemens DrDoctorllica HIV Ag/Ab Combo assay which detects the presence of HIV p24 antigen as well as antibodies to HIV-1 (Group M and O) and HIV-2. SYPHILIS SCREENING WITH [id number] 12:03PMBayron Mccarty Test NameResultFlagReference SYPHILIS TOTAL ANTIBODYNONREACTIVESee Below SOURCE: Reference Range: NONREACTIVE No significant level of Treponema pallidum antibody detected. Repeat testing in 2 to 4 weeks may be considered if early infection or incubating syphilis infection is suspected. Diagnoses/Problems Irregular menses (626.4) (N92.6) Morbid obesity (278.01) (E66.01) Orders HCG, Beta Quantitative; Status:Active; Requested for:55Mhe3143; Perform:Lab Services - Lab To Draw (Blood Test); Due:13Jul2020;Ordered; For:Irregular menses; Ordered By:Bayron Mccarty; Progesterone, Serum; Status:Active; Requested for:86Deq7626; Perform:Lab Services - Lab To Draw (Blood [...] [facility] [phone] [place] [phone] [place] Appointment Duration:. 25 minutes; greater than half [...] MD [facility] [phone] [place] [phone] [place] 1 Amended By: Bayron Mcacrty; Apr 14 2020 4:50 PM ESTSignatures Electronically signed by : Bayron Mccarty MD; Apr 14 2020 4:51PM EST (Author) Normal [employer] CRIMINAL INVESTIGATOR [employer] - Procedure Visiton 1 05-28-2019 CRIMINAL INVESTIGATOR [employer] - Procedure Visit Chief Complaint pt presents [...] 1 CAPSULE EVERY 12 HOURS DAILY; Therapy: 99Gjx3276 to (Evaluate:14Iyu6149) Requested for: 41Kje7383; Last Rx:[id number] Ordered Rx By: Bayron Mccarty; Dispense: 5 Days ; #:10 Capsule; Refill: 0;For: Fertility testing; KEVIN = N; Verified Transmission to [place] [address]; Msg to Pharmacy: start medication the night before her procedure; Last Updated By: [facility]; 01/24/2020 12:08:27 PM Vitamin D 25 MCG (1000 UT) Oral Tablet; Therapy: 94Ynm6485 to Recorded Dispense: 0 Days ; #: [...] Mar 28 2020 4:10PM EST (Author) Normal [facility] CRIMINAL INVESTIGATOR [employer]USTOMS - Office Visiton 11-0 CRIMINAL INVESTIGATOR [employer] - Office Visit Chief Complaint The patient [...] is considering single parent procreation. Her usual Hand Cloth Folder with whom she would plan to follow with for care in a future is Dr. Ng in [place]. Active Problems Female infertility (628.9) (N97.9) Fertility [...] 1 CAPSULE EVERY 12 HOURS DAILY; Therapy: 64Bmr3088 to (Evaluate:09Qeh9052) Requested for: 31Yzg9165; Last Rx:98Vxq8277 Ordered Rx By: Bayron Mccarty; Dispense: 5 Days ; #:10 Capsule; Refill: 0; For: Fertility testing; KEVIN = N; Verified Transmission to [place] [address]; Msg to Pharmacy: start medication the night before her procedure; Last Updated By: Cindi Lizarraga; 01/24/2020 12:08:27 PM Vitamin D 25 MCG (1000 UT) Oral Tablet; Therapy: 13Mar2020 to Recorded Dispense: 0 Days ; #: Sufficient Tablet; Refill: 0; KEVIN = N; Record; Last Updated By: AnadilipRohithie; 2020 1:15:24 PM Vitals Vital Signs Recorded: 13Mar2020 01:08PM Heart Rate96 Aywwnmwj880 Gjsrynkob16 Height5 ft 6 in Jzsnui767 lb BMI Odksnebhze76.91 BSA Calculated2.39 Tobacco Useb) No Fall Screeninga) No falls within the last year OBJ29Thm4529 Gravida1 Para0 Pain Scale0 Diagnoses/Problems Morbid obesity [...] consultation of which greater than 50% was ezkj-hi-pqhs counseling. Weight loss prior to conception is [...] HORMONEon ANTI MULLERIAN HORMONE 6.36 ng/mL Normal [facility] Comment on above: Result Comment: For assays employing antibodies, the possibility exists for interference by heterophile antibodies in the samples.1 1.Oswald Brunner Interferences in Immunoassays - still a threat. Clin. Chem. 2000; 46: 5467-1227. This test was developed and its performance characteristics determined by [employer]. It has not been cleared or approved by the Food and Drug Administration. Reference Range: Females 26 - 30y: 1.03 - 11.10 Median 4.20 AMH concentrations of >= 1.06 ng/mL is correlated with a better response to ovarian stimulation, produced more retrievable oocytes and higher odds of live according to Carey et al. Fertility and Sterility. 2010: 94:8251-1937. The current AMH test method correlates with [...] ovarian tumor. Performed By: #### A #### [employer] [facility] [place], [place] [id number] 17-HYDROXYPROGESTERONEon 17-HYDROXYPROGESTERON E 33 ng/dL Normal [facility] Comment on above: Result Comment: Unable to [...] 36 - 200 ng/dL Includes data from [facility]on[facility] Clin Endocrinol Metab. 1991;73:674-686; J Clin Endocrinol Metab. 1989;69;6725-3104; J Clin Endocrinol Metab. 1994;78:226-270. Pediatr Res 1988;23:525-529. MedLinePlus (accessed 10/25/13). This test was developed and its analytical performance characteristics have been determined by [facility] [place]. It has not been cleared or approved by the U.S. Food and Drug Administration. This assay has been validated pursuant to the CLIA regulations and is used for clinical purposes. Performed By: #### 1 7OHP #### [facility] [address] [place], [place] TESTOST,FREE AND TOTALon TESTOSTERONE TOT.LC/MS/MS 63 ng/dL High 2-45 [facility] Comment on above: Result Comment: For additional information, please refer to http://education.[employer]ent[employer]otiator.com/faq/ MlqboBzckknxrnwzgWGPJRVUWR314 (This link is being provided for informational/ educational purposes only.) This test was developed and its analytical performance characteristics have been determined by [facility] [place]. It has not been cleared or approved by the U.S. Food and Drug Administration. This assay has been validated pursuant to the CLIA regulations and is used for clinical purposes. Performed By: #### G [facility] #### [facility] [address] [place] [address] TESTOSTERONE,FREE 8.8 pg/mL High 0.1-6.4 [facility] [place] Comment on above: Result Comment: This test was developed and its analytical performance characteristics have been determined by [employer] [place]. It has not been cleared or approved by the U.S. Food and Drug Administration. This assay has been validated pursuant to the CLIA regulations and is used for clinical purposes. Performed By: #### G [facility] #### [facility] [address] [place] [address] DHEA SULFATEon 01-25-2020 DHEA SULFATE 214 ug/dL Normal 65 - 395 [facility] Comment on above: Result Comment: MATU RITY-BASED [...] for further information. Performed By: #### G [facility] #### [facility] [address] [place] [address] GC + CHLAMYDIA BY AMPLIFIED DETECTIONon 01-25-2020 CHLAMYDIA TRACH.,AMPLIFIED Negative Normal Negative [facility] Comment on above: Performed By: #### G [facility] #### [facility] [address] [place] [address] N.GONORRHEA,AMPLIFIED Negative Normal Negative [facility] Comment on above: Performed By: #### G [facility] #### [facility] [address] [place] [address] HEPATITIS B SURFACE AGon HEP.B SURFACE AG NONREACTIVE Normal NONREACTIVE [facility] Comment on above: Result Comment: Biot in interference may cause falsely decreased results. Patients taking a Biotin dose of up to 5 mg/day should refrain from taking Biotin for 24 hours before sample collection. Providers may contact their local laboratory for further information. Performed By: #### G [facility] #### [facility] [address] [place] [address] HEPATITIS C ABon 01-25-2020 HEPATITIS C AB NONREACTIVE Normal NONREACTIVE [facility] Comment on above: Result Comment: Resu lts from patients taking biotin supplements or receiving high-dose biotin therapy should be interpreted with caution due to possible interference with this test. Providers may contact their local laboratory for further information. Performed By: #### H [facility] #### [facility] [address] [place] [address] HIV ANTIGEN/ANTIBODY SCREENo n 01-25-2020 HIV AG/AB SCREEN NONREACTIVE Normal NONREACTIVE [facility] Comment on above: Result Comment: HIV Ag/Ab screen is performed using the Siemens [employer] HIV Ag/Ab Combo assay which detects the presence of HIV p24 antigen as well as antibodies to HIV-1 (Group M and O) and HIV-2. Performed By: #### G CCHA #### [facility] [address] [place] [address] RUBELLA IGG ABon 01-25-2020 RUBELLA IGG AB [...] assays. Performed By: #### R UBIG #### [facility] [address] [place] [address] SYPHILIS SCREENING WITH REFL EXon 01-25-2020 SYPHILIS TOTAL AB NONREACTIVE Normal NONREACTIVE [facility] Comment on above: Result Comment: No s ignificant level of Treponema pallidum antibody detected. Repeat testing in 2 to 4 weeks may be considered if early infection or incubating syphilis infection is suspected. Performed By: #### S YPHR #### [facility] [address] [place] [address] TSH WITH REFLEX TO FREE T4 I F ABNORMALon 01-25-2020 TSH Qn 2.17 m[IU]/L Normal 0.44 - 3.98 [facility] Comment on above: Result Comment: TSH testing is performed using different testing methodology at [facility] than at other [facility]. Direct result comparisons should only be made within the same method. Performed By: #### G [facility] #### [facility] [address] [place] [address] VARICELLA ZOSTER IGG ABon VARICELLA ZOSTER IGG AB Negative Normal NEGATIVE [facility] Comment on above: Result Comment: INTE [...] assays. Performed By: #### V AR #### [facility] [address] [place] [address] VITAMIN D, 25-HYDROXYon 01-10 VITAMIN D, 25-HYDROXY 17 ng/mL Abnormal [facility] Comment on above: Result Comment: . DEFICIENCY: < 20 NG/ML INSUFFICIENCY: 20-29 NG/ML SUFFICIENCY: 30-100 NG/ML THIS ASSAY ACCURATELY QUANTIFIES THE SUM OF VITAMIN D3, 25-HYDROXY AND VIT D2,25-HYDROXY. { Performed By: #### G [facility] #### [facility] [address] [place] [address] GC + CHLAMYDIA BY AMPLIFIED DETECTIONon 01-24-2020 Lab Specimen Source Urine Normal [facility] Comment on above: Performed By: #### G [facility] #### [facility] [address] [place] [address] HEMOGLOBIN A1Con 01-24-2020 HbA1c (Bld) [Mass fraction] 5.5 % Normal [facility] Comment on above: Result Comment: Diag nosis of Diabetes-Adults Non-Diabetic: < or = 5.6% Increased risk for developing diabetes: 5.7-6.4% Diagnostic of diabetes: > or = 6.5% . Monitoring of Diabetes Age (y) Therapeutic Goal (%) Adults: >18 <7.0 Pediatrics: 13-18 <7.5 7-12 <8.0 0- 6 7.5-8.5 [employer]. Diabetes Care 33(S1), May 2009. Performed By: #### H BA1E #### [facility] [address] [place] [address] HbA1c (Bld) [Mass fraction] 111 MG/DL Normal [facility] Comment on above: Performed By: #### H BA1E #### [facility] [address] [place] [address] CRIMINAL INVESTIGATOR CUSTOMS - Office Visiton 01-10 CRIMINAL INVESTIGATOR [employer]USTOMS - Office Visit Chief Complaint 29 year [...] is currently incarcerated, and [place] be in [facility] [place] [facility]26. She is interested in pursuing fertility testing today, and pending these results would potentially be interested in single-parent procreation with donor sperm. She is not currently sexually active. She has a history of ectopic in 2011, which was treated with laparoscopic left salpingectomy in [facility]. 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: STDs: Yes, remote history of gonorrhea [...] PM Vitals Vital Signs Recorded: 24Jan2020 11:13AM Dyhqnbnmxhf75.7 F Heart Saux502 Ugooabwu877 Rymlgbodo80 Height5 ft 6 in Pdqclm968 lb BMI Utjmnxlwwa73.13 BSA Calculated2.35 Tobacco Useb) No Fall Screeninga) No falls within the last year [id number] Gravida1 Para0 Pain Scale0 Diagnoses/Problems Female infertility (628.9) (N97.9) Fertility testing (V26.21) (Z31.41) Morbid obesity (278.01) (E66.01) Irregular menses (626.4) (N92.6) Screening for STD (sexually transmitted disease) (V74.5) (Z11.3) *Orders Anti Mullerian Hormone; Status:Active; Requested for:24Jan2020; Perform:Lab Services - Lab To Draw (Non-Blood Test); Due:91Jhx2128;Ordered; For:Female infertility, Fertility testing, Irregular menses, Morbid obesity; Ordered By:Bayron Mccarty; Start: Doxycycline Monohydrate 100 MG Oral Capsule; TAKE 1 CAPSULE EVERY 12 HOURS DAILY Rx By: Bayron Mccarty; Dispense: 5 Days ; #:10 Capsule; Refill: 0; For: Fertility testing; KEVIN = N; Verified Transmission to [place] [address]; Msg to Pharmacy: start medication the night before her procedure; Last Updated By: Cindi Lizarraga; 01/24/2020 12:08:27 PM Maternal Medicine Referral Evaluation and Treatment Evaluate AND Treat Status: Hold For - Scheduling Requested for: 67Kyy6096 Ordered; For: Morbid obesity; Ordered By: Bayron Mccarty Performed: Due: 27Iot4167 17-Hydroxyprogesterone, Serum; Status:Active; Requested for:09Sjx0827; Perform:Lab Services - Lab To Draw (Blood Test); Due:11Epl8021;Ordered; For:Screening for STD (sexually transmitted disease); Ordered By:Bayron Mccarty; DHEA Sulfate, Serum; Status:Active; Requested for:79Wxg9657; Perform:Lab Services - Lab To Draw (Blood Test); Due:37Iuv5806;Ordered; For:Screening for STD (sexually transmitted disease); Ordered By:Bayron Mccarty; Hemoglobin A1C; Status:Active; Requested for:25Stw1699; Perform:Lab Services - Lab To Draw (Blood Test); Due:93Yaa5920;Ordered; For:Screening for STD (sexually transmitted disease); Ordered By:Bayron Mccarty; Rubella IgG Antibody; Status:Active; Requested for:24Zlr7160; Perform:Lab Services - Lab To Draw (Blood Test); Due:63Crv4397;Ordered; For:Screening for STD (sexually transmitted disease); Ordered By:Bayron Mccarty; Testosterone Free + Total; Status:Active; Requested for:46Ebf2457; Perform:Lab Services - Lab To Draw (Blood Test); Due:50Eoi3893;Ordered; For:Screening for STD (sexually transmitted disease); Ordered By:Bayron Mccarty; TSH WITH REFLEX TO FREE T4 IF ABNORMAL; Status:Active; Requested for:52Gtr9678; Perform:Lab Services - Lab To Draw (Blood Test); Due:37Nml9250;Ordered; For:Screening for STD (sexually transmitted disease); Ordered By:Bayron Mccarty; Ultrasound Pelvis Transvaginal; Status:Hold For - Scheduling; Requested for:45Lgm9807; Perform:[facility]; Order Comments:will call with menses to schedule; Due:24Gie4548;Ordered; For:Screening for STD (sexually transmitted disease); Ordered By:Bayron Mccarty; Radiologist to Determine Optimal Study : Y What are the patient's signs and symptoms? : fert testing Varicella Zoster IgG Antibody; Status:Active; Requested for:05Lhm4334; Perform:Lab Services - Lab To Draw (Blood Test); Due:90Pmc0913;Ordered; For:Screening for STD (sexually transmitted disease); Ordered By:Bayron Mccarty; Vitamin D 25-Hydroxy; Status:Active; Requested for:36Weo9295; Perform:Lab Services - Lab To Draw (Blood Test); Due:70Vow3842;Ordered; For:Screening for STD (sexually transmitted disease); Ordered By:Bayron Mccarty; Xray Hysterosalpingogram; Status:Hold For - Scheduling; Requested for:37Boy6208; Perform:[facility]; Order Comments:will call with menses to schedule. schedule between CD5-12. start doxycycline night prior to procedure; Due:00Ugy3945;Ordered; For:Screening for STD (sexually transmitted disease); Ordered By:Bayron Mccarty; Radiologist to Determine Optimal Study : Y What are the patient's signs and symptoms? : fert testing Tobacco Use Screening; Status:Complete; Done: 60Cai5992 Perform:Not Applicable;Ordered; For:SocHx: Never a smoker; Ordered [...] sent to her home pharmacy ([facility] in [place]) [ ] Day 3 FSH, LH, E2 [x] AMH [x] TSH [x] Prolactin [x] Testosterone, DHEAS [x] HgA1C [x] STD screening [x ] Preconceptual screening including Rubella,Varicella, Blood type [ ] Genetic Screen with [employer] - will consider [ ] Take vitamins [x] Return to see DISPATCHER RADIO after workup complete to discuss management plan [...] REFL EXon 01-24-2020 Lab Specimen Source Normal [facility] Comment on above: Performed By: #### S YPHR #### [facility] [address] [place] [address] Performed By: #### V ARZG #### [facility] [address] [place] [address] Performed By: #### R UBIG #### [facility] [address] [place] [address] Vital Signs Date Time Vital Sign Value Performing Clinician Facility 04-06-2024 14:10-0500 Body mass index (BMI) [Ratio] 48.58 kg/m2 Mena CARRILLO Work Phone: [facility] 04-06-2024 14:10-0500 Body weight 136.53 kg Mena CARRILLO Work Phone: [facility] 04-06-2024 14:10-0500 Diastolic blood pressure 80 mm[Hg] Mena CARRILLO Work Phone: [facility] 04-06-2024 14:10-0500 Systolic blood pressure 128 mm[Hg] Mena CARRILLO Work Phone: [facility] 03-22-2024 14:14-0500 Body mass index (BMI) [Ratio] 48.92 kg/m2 Tacho Shon DO Work Phone: [facility] 03-22-2024 14:14-0500 Body weight 137.49 kg Tacho Shon DO Work Phone: [facility] 03-22-2024 14:14-0500 Diastolic blood pressure 84 mm[Hg] Tacho Shon DO Work Phone: [facility] 03-22-2024 14:14-0500 Systolic blood pressure 126 mm[Hg] Tacho Shon DO Work Phone: [facility] 03-05-2024 23:11-0400 Diastolic blood pressure 78 mm[Hg] Services [facility] Work Phone: [facility] 03-05-2024 23:11-0400 Heart rate 90 /min [facility] Work Phone: [facility] 03-05-2024 23:11-0400 Respiratory rate 18 /min [facility] Work Phone: [facility] 03-05-2024 23:11-0400 SaO2% (BldA) [Mass fraction] 96 % [facility] Work Phone: [facility] 03-05-2024 23:11-0400 Systolic blood pressure 136 mm[Hg] [facility] Work Phone: [facility] 03-05-2024 19:59-0400 Body temperature 98.1 [degF] [facility] Work Phone: [facility] 03-05-2024 19:58-0400 Body height 167.64 cm [facility] Work Phone: [facility] 03-05-2024 19:58-0400 Body weight 136.55 kg [facility] Work Phone: [facility] 02-26-2024 19:50-0400 Body height 167.64 cm [facility] Work Phone: [facility] 02-26-2024 19:50-0400 Body temperature 97.8 [degF] [facility] Work Phone: [facility] 02-26-2024 19:50-0400 Body weight 136.98 kg [facility] Work Phone: [facility] 02-26-2024 19:50-0400 Diastolic blood pressure 91 mm[Hg] [facility] Work Phone: [facility] 02-26-2024 19:50-0400 Heart rate 103 /min [facility] Work Phone: [facility] 02-26-2024 19:50-0400 Respiratory rate 16 /min [facility] Work Phone: [facility] 02-26-2024 19:50-0400 SaO2% (BldA) [Mass fraction] 96 % [facility] Work Phone: [facility] 02-26-2024 19:50-0400 Systolic blood pressure 144 mm[Hg] Services [facility] Work Phone: [facility] 02-23-2024 14:01-0400 Body mass index (BMI) [Ratio] 48.76 kg/m2 Mena Ann PA Work Phone: [facility] 02-23-2024 14:01-0400 Body weight 137.04 kg Mena Ann PA Work Phone: [facility] 02-23-2024 14:01-0400 Diastolic blood pressure 82 mm[Hg] Mena Ann PA Work Phone: [facility] 02-23-2024 14:01-0400 Systolic blood pressure 128 mm[Hg] Mena Ann PA Work Phone: [facility] 10-06-2023 17:42-0400 Body height 167.64 cm Services [facility] Work Phone: [facility] 10-06-2023 17:42-0400 Body temperature 98.3 [degF] Services [facility] Work Phone: [facility] 10-06-2023 17:42-0400 Body weight 134 kg Services [employer] Work Phone: [facility] 10-06-2023 17:42-0400 Diastolic blood pressure 94 mm[Hg] Services [facility] Work Phone: [facility] 10-06-2023 17:42-0400 Heart rate 98 /min [facility] Work Phone: [facility] 10-06-2023 17:42-0400 Respiratory rate 18 /min Services [employer] Work Phone: [facility] 10-06-2023 17:42-0400 SaO2% (BldA) [Mass fraction] 100 % Services [employer] Work Phone: [facility] 10-06-2023 17:42-0400 Systolic blood pressure 142 mm[Hg] Services [employer] Work Phone: [facility] 09-17-2023 14:22-0400 Body height 167.[address] [facility] 09-17-2023 14:22-0400 Body mass index (BMI) [Ratio] 47.61 kg/m2 Anna Ortiz RD [facility] 09-17-2023 14:22-0400 Body weight 133.[address] [facility] 08-20-2023 13:05-0400 Body height 167.6 cm Tonya Senior RETREADER.MA[employer]GER [employer] Work Phone: [facility] 08-20-2023 13:05-0400 Body weight 133.81 kg Tonay Parrish RETREADER.MA[employer] Work Phone: [facility] 08-07-2023 15:23-0400 Body height 168.91 cm Services [employer] Work Phone: [facility] 08-07-2023 15:23-0400 Body mass index (BMI) [Ratio] 46.9 kg/m2 Services [employer] Work Phone: [facility] 08-07-2023 15:23-0400 Body weight 133.89 kg Services [employer] Work Phone: [facility] 08-07-2023 15:23-0400 Diastolic blood pressure 83 mm[Hg] Services [employer] Work Phone: [facility] 08-07-2023 15:23-0400 Heart rate 101 /min Services [employer] Work Phone: [facility] 08-07-2023 15:23-0400 Respiratory rate 18 /min Services [employer] Work Phone: [facility] 08-07-2023 15:23-0400 SaO2% (BldA) [Mass fraction] 98 % Services [employer] Work Phone: [facility] 08-07-2023 15:23-0400 Systolic blood pressure 120 mm[Hg] Services [facility] [employer] Phone: [facility] 06-13-2023 11:00-0500 Body height 168.28 cm Nicholas Michaels Other [facility] 06-13-2023 11:00-0500 Body mass index (BMI) [Ratio] 48.53 kg/m2 Nicholas Michaels Other [employer] Other 06-13-2023 11:00-0500 Body weight 137.44 kg Nicholas Michaels Other [employer] Other 06-13-2023 11:00-0500 Body weight 137.43 kg [facility] Phone: [facility] 06-13-2023 11:00-0500 Diastolic blood pressure 82 mm[Hg] Nicholas Michaels Other [facility] 06-13-2023 11:00-0500 Respiratory rate 18 /min Nicholas Michaels Other [employer] Other 06-13-2023 11:00-0500 SaO2% (BldA) [Mass fraction] 97 % Nicholas Michaels Other [employer] Other 06-13-2023 11:00-0500 Systolic blood pressure 120 mm[Hg] Nicholas Michaels Other [facility] 01-08-2023 10:45-0400 Body height 168.28 cm Nicholas Michaels Other [employer] Other 01-08-2023 10:45-0400 Body mass index (BMI) [Ratio] 52.89 kg/m2 Nicholas Michaels Other [employer] Other 01-08-2023 10:45-0400 Body weight 149.78 kg Nicholas Michaels Other [employer] Other 01-08-2023 10:45-0400 Diastolic blood pressure 81 mm[Hg] Nicholas Michaels Other [employer] Other 01-08-2023 10:45-0400 Respiratory rate 18 /min Nicholas Michaels Other [employer] Other 01-08-2023 10:45-0400 SaO2% (BldA) [Mass fraction] 97 % Nicholas [employer] Other [employer] Other 01-08-2023 10:45-0400 Systolic blood pressure 122 mm[Hg] Nicholas [employer] Other [employer] Other 06-18-2022 16:57-0500 Body height 167.64 cm Services [employer] Work Phone: [facility] 06-18-2022 16:57-0500 Body weight 157 kg Services [employer] Work Phone: [facility] 06-18-2022 16:56-0500 Body temperature 98.3 [degF] Services [employer] Work Phone: [facility] 06-18-2022 16:56-0500 Diastolic blood pressure 67 mm[Hg] Services [employer] Work Phone: [facility] 06-18-2022 16:56-0500 Heart rate 95 /min Services [facility] Work Phone: [facility] 06-18-2022 16:56-0500 Respiratory rate 20 /min Services [employer] Work Phone: [facility] 06-18-2022 16:56-0500 SaO2% (BldA) [Mass fraction] 97 % Services [employer] Work Phone: [facility] 06-18-2022 16:56-0500 Systolic blood pressure 158 mm[Hg] Services [facility] Work Phone: [facility] 12-02-2021 20:26-0400 Body height 167.64 cm Services [facility] Work Phone: [facility] 12-02-2021 20:26-0400 Body temperature 98.2 [degF] Services [facility] Work Phone: [facility] 12-02-2021 20:26-0400 Body weight 144.24 kg Services [facility] Work Phone: [facility] 12-02-2021 20:26-0400 Diastolic blood pressure 89 mm[Hg] Services [employer] Work Phone: [facility] 12-02-2021 20:26-0400 Heart rate 104 /min Services [employer] Work Phone: [facility] 12-02-2021 20:26-0400 Respiratory rate 20 /min Services [employer] Work Phone: [facility] 12-02-2021 20:26-0400 SaO2% (BldA) [Mass fraction] 96 % Services [employer] Work Phone: [facility] 12-02-2021 20:26-0400 Systolic blood pressure 156 mm[Hg] Services [employer] Work Phone: [facility] 06-19-2020 11:10-0500 BMI (Body Mass Index) 46.65 kg/m2 Bayron Mccarty [id number] 310 [facility] Work Phone: 06-19-2020 11:10-0500 Body weight 131.09 kg Bayron Mccarty [id number] 310 IVF Work Phone: 06-19-2020 11:10-0500 BSA (Body Surface Area) 2.34 m2 Bayron Mccarty [id number] 310 IVF Work Phone: 06-19-2020 11:10-0500 Height 167.64 cm Bayron Mccarty [id number] 310 IVF Work Phone: 06-19-2020 11:10-0500 1 1 Bayron Mccarty [id number] 310 IVF Work Phone: Comment on above: 06-19-2020 11:10-0500 0 1 Bayron Mccarty [id number] 310 IVF Work Phone: Comment on above: Para Pain Scale Encounters Encounter Date Encounter Type Care Provider Facility Start: 04-22-2024 End: 04-22-2024 Bamboo flowsheet Tacho Shon DO Work Phone: [facility] Start: 04-22-2024 End: 04-22-2024 Bamboo flowsheet Tacho Shon DO Work Phone: [facility] Start: 04-22-2024 End: 04-22-2024 ambulatory TACHO SHON Not Available Start: 04-06-2024 End: 04-06-2024 Bamboo flowsheet Mena [...] 03-30-2024 End: 03-30-2024 ambulatory TACHO R SHON [facility] Start: 03-22-2024 End: 03-22-2024 Bamboo flowsheet Tacho Shon DO Work Phone: [facility] Start: 03-22-2024 End: 03-22-2024 Bamboo flowsheet Tacho Shon DO Work Phone: [facility] Start: 03-22-2024 End: 03-22-2024 Office outpatient visit 15 minutes Tacho Valienteo DO Work Phone: [facility] Comment on above: Third trimester preg rosette; 29 weeks gestation of Start: 03-22-2024 End: 03-22-2024 ambulatory TACHO SHON Not Available Start: 03-19-2024 End: 03-19-2024 Clinisync Result Encounter Mena CARRILLO Work Phone: [facility] External Department Unsolicited Start: 03-19-2024 End: 03-19-2024 Clinisync Result Encounter Mena CARRILLO Work Phone: [facility] External Department Unsolicited Start: 03-05-2024 End: 03-05-2024 Emergency department patient visit Services [facility] Work Phone: [facility] Work Phone: Start: 03-01-2024 End: 03-01-2024 Orders Only Veda Hayes RN Maternal- Medic ine at [facility] Comment on above: Encounter for follow -up ultrasound of anatomy (Primary Dx); History of pre-eclampsia in prior , currently ; History of delivery, currently ; Obesity affecting in second trimester, unspecified obesity type Start: 02-26-2024 End: 02-26-2024 Emergency department patient visit Services [facility] Work Phone: [facility] Work Phone: Start: 02-23-2024 End: 02-23-2024 Bamboo flowsheet Mena CARRILLO Work Phone: [facility] Start: 02-23-2024 End: 02-23-2024 Bamboo flowsheet Mena CARRILLO Work Phone: [facility] Start: 02-23-2024 End: 02-23-2024 Office outpatient visit 15 minutes Mena CRARILLO Work Phone: [facility] Comment on above: 25 weeks gestation o f ; Second trimester ; Diabetes mellitus screening; size inconsistent with dates; H/O premature delivery Start: 02-23-2024 End: 02-23-2024 ambulatory MENA ANN Not Available Start: 02-17-2024 End: 02-17-2024 ambulatory TACHO R [facility] Start: 01-26-2024 End: 01-26-2024 Clinisync Result Encounter Tacho Shon DO Work Phone: [facility] External [facility] Unsolicited Start: 01-26-2024 End: 01-26-2024 Clinisync Result Encounter Tacho Shon DO Work Phone: [facility] Unsolicited Start: 01-20-2024 End: 01-20-2024 ambulatory TACHO SHON Not Available Start: 01-19-2024 End: 01-19-2024 ambulatory TACHO [facility] Start: 12-23-2023 End: 12-23-2023 ambulatory MENA ANN Not Available Start: 11-25-2023 End: 11-25-2023 ambulatory TACHO SHON Not Available Start: 10-30-2023 End: 10-30-2023 ambulatory TACHO SHON Not Available Start: 10-09-2023 End: 10-09-2023 ambulatory LATONIA GREENE Facility:[facility] Start: 10-06-2023 End: 10-06-2023 Emergency department patient visit Services [facility] Work Phone: [facility] Work Phone: Start: 09-17-2023 End: 09-17-2023 ambulatory ANNA ORTIZ Facility:[facility] Start: 09-17-2023 End: 09-17-2023 Nutrition therapy Anna Ortiz RD Nutrition Therapy Comment on above: Obesity, Class III, BMI 40-49.9 (morbid obesity) (HCC) (Primary Dx); Dietary counseling Start: 09-17-2023 End: 09-17-2023 Telemedicine consultation with patient Anna Ortiz RD Nutrition Therapy Start: 09-15-2023 Admission to [facility] Tonya Senior APRN.MANAGER [employer] Work Phone: General Surgery Comment on above: Results Start: 09-15-2023 E-mail encounter dena m caregiver Tonya Senior RETREADER.MANAGER [employer] Work Phone: General Surgery Start: 09-11-2023 Telephone encounter Tonya Senior APRN.MANAGER [employer] Work Phone: General Surgery Comment on above: Results Start: 09-08-2023 End: 09-08-2023 ambulatory TONYA SENIOR Facility:[facility] Start: 09-05-2023 End: 09-05-2023 ambulatory TONYA SENIOR Facility:[facility] Start: 09-01-2023 End: 09-02-2023 ambulatory LATONIA GREENE Facility:[facility] Start: 09-01-2023 End: 09-01-2023 Admission to same day surgery center Latonia Greene PhD Work Phone: General Surgery BMI PSYL Comment on above: NO SHOW (Primary Dx) Start: 09-01-2023 End: 09-01-2023 Telemedicine consultation with patient Latonia Greene PhD Work Phone: General Surgery BMI PSYL Start: 08-20-2023 Admission to same da y surgery center Tonya Senior RETREADER.MANAGER [employer] Work Phone: General Surgery Comment on above: Welcome to Bariatric Surgery Start: 08-20-2023 E-mail encounter dena m caregiver Tonya Senior APRN.MANAGER [employer] Work Phone: [place] [id number] Start: 08-20-2023 End: 08-20-2023 ambulatory Tonya Senior RETREADER.MANAGER [employer] Work Phone: General Surgery Comment on above: Body mass index (BMI ) of 50-59.9 in adult (HCC) (Primary Dx); Angel's thyroiditis; High blood cholesterol Start: 08-20-2023 End: 08-20-2023 Telemedicine consultation with patient Tonya Senior RETREADER.MANAGER [employer] [facility] Start: 08-07-2023 End: 08-07-2023 ambulatory Services [facility] Work Phone: [facility] Work Phone: Start: 08-07-2023 End: 08-07-2023 Patient encounter procedure Services [facility] Work Phone: [facility] Work Phone: Start: 06-13-2023 Follow-up encounter Nicholas Michaels [facility] Start: 06-13-2023 Registered Recurring Services [facility] Work Phone: [facility] Work Phone: Start: 06-13-2023 End: 06-13-2023 ambulatory Nicholas Michaels [facility] [employer] Other Start: 06-13-2023 End: 06-13-2023 Patient encounter procedure Services [facility] [employer] Work Phone: [facility] Start: 01-08-2023 End: 01-08-2023 ambulatory Nicholas Michaels Other [facility] [employer] Other Start: 01-08-2023 Nutrition therapy Nicholas Michaels [facility] Start: 06-18-2022 End: 06-18-2022 Emergency department patient visit Services [facility] [employer] Work Phone: [facility] Work Phone: Start: 06-03-2022 End: 06-03-[address] TACHO MENENDEZ Facility: Start: 12-02-2021 End: 12-02-2021 Emergency department patient visit Services [facility] Work Phone: [facility] Start: 07-08-2020 Patient encounter procedure Bayron Swanson 310 IV[facility] Work Phone: Start: 07-05-2020 Patient encounter procedure Bayron Swanson 310 IVF Work Phone: Start: 02-08-2021 Patient encounter procedure Bayron Anaya [facility] Work Phone: Start: 04-14-2020 Patient encounter procedure Bayron Anaya [facility] Work Phone: Start: 03-28-2020 Patient encounter procedure Bayron Anaya [facility] Work Phone: Start: 2020 Patient encounter procedure Bayron nAaya IVF Work Phone: Start: 01-24-2020 Patient encounter procedure Bayron Anaya [facility] Work Phone: Start: 08-01-2017 End: 08-02-2017 Ambulatory Agustin Patton Facility:[id number] Start: 07-14-2017 End: 07-15-2017 Ambulatory Agustin Carrasquillo Facility:[id number] Procedures Date Procedure Procedure Detail Performing Clinician Start: 04-06-2024 Urnls dip stick/tabl et rgnt non-auto w/o micrscp Mena CARRILLO Work Phone: Start: 03-22-2024 Urnls dip stick/tabl et rgnt non-auto w/o micrscp Tacho Shontianna FAYE Work Phone: Start: 03-19-2024 ALL CBC WITH AUTO DIFF Mena CARRILLO Work Phone: Start: 03-05-2024 Plain chest X-ray Servi malina [facility] Work Phone: Start: 03-05-2024 Respiratory Panel (PCR) Services [facility] Work Phone: Start: 03-05-2024 Streptococcus pyogen es antigen assay Services [facility] Work Phone: Start: 02-26-2024 Streptococcus pyogen es antigen assay Services [facility] Work Phone: Start: 02-23-2024 Urnls dip stick/tabl et rgnt non-auto w/o micrscp Mena CARRILLO Work Phone: Start: 01-26-2024 ALL THYROID STIM HORMONE Tacho Menendez DO Work Phone: Start: 12-23-2023 Microscopic observat ion [Identifier] in Cervix by Cyto stain Tacho Menendez DO Work Phone: Start: 07-06-2020 Antibody screen Comment on above: Performed By: #### T +S #### [facility] [address] [place] [address] Start: 07-05-2020 IO Ultrasound, limit ed pelvic, follicle monitoring Bayron Mccarty Start: 06-26-2020 IO Ultrasound, limit ed pelvic, follicle monitoring Bayron Mccarty Start: 05-10-2020 Assay of progesterone J oseph Bibiana Adenoid excision Bayron wallace Cholecystectomy Bayron Chen ey SARS Antigen (LFIA) Services [facility] Work Phone: Plan of Treatment Date Care Activity Detail Author Start: 12-22-2028 Screening for malign ant neoplasm of cervix [facility] Start: 12-22-2026 Screening for malign ant neoplasm of cervix Pap [facility] [employer] Start: 03-01-2025 End: 03-01-2025 US MFM with or without consult US MFM with or without consult Imaging Routine Encounter for follow-up ultrasound of anatomy History of pre-eclampsia in prior , currently History of delivery, currently Obesity affecting in second trimester, unspecified obesity type Expected: 03/01/2025 (Approximate), Expires: 03/01/2025 [employer] Work Phone: Comment on above: Expected: 03/01/2025 (Approximate), Expires: 03/01/2025 Start: 01-18-2025 Adult [facility] Start: 01-18-2025 Tobacco Screening [facility] Start: 04-22-2024 End: 04-22-2024 Patient encounter procedure [facility] Comment on above: Arrived Start: 04-06-2024 End: 04-06-2025 US biophysical profile w non stress test US biophysical profile w non stress test Imaging Routine H/O premature delivery Expected: 04/06/2024 (Approximate), Expires: 04/06/2025 [facility] Work Phone: Comment on above: Expected: 04/06/2024 (Approximate), Expires: 04/06/2025 Start: 04-06-2024 End: 04-06-2024 Patient encounter procedure 04/06/2024 1:30 PM EST Routine [facility] [address] [place] [address] Mena Ann PA [address] [place], [place] [id number] [facility] Start: 03-30-2024 End: 03-30-2024 Patient encounter procedure 03/30/2024 2:45 PM EST Appointment [facility] - Ultrasound [address] [place] [phone] [facility] Start: 03-22-2024 End: 03-22-2024 Patient encounter procedure 03/22/2024 1:50 PM EST Routine [facility] [address] [place] [address] Tacho Menendez, DO [address] [place], [place] [id number] [facility] Start: 03-22-2024 End: 03-22-2024 Professional / ancillary services management 03/22/2024 1:00 PM EST Ancillary Procedure [facility] [address] [place] [address] [facility] Start: 03-16-2024 End: 03-16-2024 Patient encounter procedure 03/16/2024 1:30 PM EST Routine [facility] [address] [place] [address] Tacho Menendez, DO [address] [place] [address] [facility] Start: 02-23-2024 End: 02-22-2025 CBC panel - Blood by Automated count CBC Lab Routine Diabetes mellitus screening Expected: 02/23/2024 (Approximate), Expires: 02/22/2025 [facility] Work Phone: Comment on above: Expected: 02/23/2024 (Approximate), Expires: 02/22/2025 Start: 02-23-2024 End: 02-22-2025 Measurement of glucose 1 hour after glucose challenge for glucose tolerance test Glucose tolerance, 1 hour Lab Routine Diabetes mellitus screening Expected: 02/23/2024 (Approximate), Expires: 02/22/2025 [facility] Comment on above: Expected: 02/23/2024 (Approximate), Expires: 02/22/2025 Start: 02-23-2024 End: 02-22-2025 US for US OB SCAN FOR GROWTH Imaging Routine size inconsistent with dates H/O premature delivery Expected: 02/23/2024 (Approximate), Expires: 02/22/2025 [facility] Comment on above: Expected: 02/23/2024 (Approximate), Expires: 02/22/2025 Start: 02-23-2024 End: 02-23-2024 Patient encounter procedure 02/23/2024 1:40 PM EDT Routine [facility] [address] [place] [id number] Mena Ann PA [address] [place] [address] Arrived [facility] Comment on above: Arrived Start: 02-18-2024 End: 02-18-2024 Patient encounter procedure 02/18/2024 2:30 PM EDT Routine [facility] [address] [place] [address] Mena Ann PA [address] [place], [place] [id number] [facility] Start: 01-11-2024 COVID-19 Vaccine () COVID-19 Vaccine () [facility] Start: 01-11-2024 Influenza vaccination N [facility] Healthcare Start: 09-17-2023 End: 09-17-2023 Nutrition therapy 09/17/2023 2:30 PM EDT [facility] Nutrition Therapy [address] [address] Anna Ortiz, RD [address] [place] [address] Red/Davis/0 Diet/[facility] Nutrition Therapy Comment on above: Red/Davis/0 Diet/ Landis Start: 09-12-2023 End: 09-12-2023 Admission to same day surgery center 09/12/2023 3:30 PM EDT [facility] General Surgery [address] [place] [address] Joo Bradley MD [address] [place], [place] [id number] Red/Kirk/0 Diet/[facility] General Surgery Comment on above: Red/Kirk/0 Diet/Anth em Start: 09-05-2023 End: 09-05-2023 ambulatory 09/05/2023 11:45 AM EDT Results Only [facility] [address] [place] [address] [place] [address] [facility] Start: 08-20-2023 End: 11-19-2023 25-hydroxyvitamin D3 [Mass/volume] in Serum or Plasma VITAMIN D 25 HYDROXY Lab Routine Body mass index (BMI) of 50-59.9 in adult (HCC) Expected: 08/20/2023, Expires: 11/19/2023 [facility] Work Phone: Comment on above: Expected: 08/20/2023 , Expires: 11/19/2023 Start: 08-20-2023 End: 11-19-2023 CBC W Auto Differential panel - Blood COMPLETE BLOOD COUNT AND DIFFERENTIAL Lab Routine Body mass index (BMI) of 50-59.9 in adult (HCC) Expected: 08/20/2023, Expires: 11/19/2023 [facility] Work Phone: Comment on above: Expected: 08/20/2023 , Expires: 11/19/2023 Start: 08-20-2023 End: 11-19-2023 Cobalamin (Vitamin B12) [Mass/volume] in Serum or Plasma VITAMIN B12 Lab Routine Body mass index (BMI) of 50-59.9 in adult ([facility]) Expected: 08/20/2023, Expires: 11/19/2023 [facility] Work Phone: Comment on above: Expected: 08/20/2023 , Expires: 11/19/2023 Start: 08-20-2023 End: 11-19-2023 Comprehensive metabolic 2000 panel - Serum or Plasma COMPREHENSIVE METABOLIC PANEL Lab Routine High blood cholesterol Body mass index (BMI) of 50-59.9 in adult ([facility]) Expected: 08/20/2023, Expires: 11/19/2023 [facility] Work Phone: Comment on above: Expected: 08/20/2023 , Expires: 11/19/2023 Start: 08-20-2023 End: 11-19-2023 Ferritin [Mass/volume] in Serum or Plasma FERRITIN Lab Routine Body mass index (BMI) of 50-59.9 in adult ([facility]) Expected: 08/20/2023, Expires: 11/19/2023 [facility] Work Phone: Comment on above: Expected: 08/20/2023 , Expires: 11/19/2023 Start: 08-20-2023 End: 11-19-2023 Folate [Mass/volume] in Serum or Plasma FOLATE, SERUM Lab Routine Body mass index (BMI) of 50-59.9 in adult ([facility]) Expected: 08/20/2023, Expires: 11/19/2023 [facility] Work Phone: Comment on above: Expected: 08/20/2023 , Expires: 11/19/2023 Start: 08-20-2023 End: 11-19-2023 Helicobacter pylori IgG Ab [Presence] in Serum or Plasma by Immunoassay H PYLORI IGG AB Lab Routine Body mass index (BMI) of 50-59.9 in adult ([facility]) Expected: 08/20/2023, Expires: 11/19/2023 [facility] Work Phone: Comment on above: Expected: 08/20/2023 , Expires: 11/19/2023 Start: 08-20-2023 End: 11-19-2023 Hemoglobin A1c in Blood HEMOGLOBIN A1C Lab Routine Body mass index (BMI) of 50-59.9 in adult ([facility]) Expected: 08/20/2023, Expires: 11/19/2023 [facility] Work Phone: Comment on above: Expected: 08/20/2023 , Expires: 11/19/2023 Start: 08-20-2023 End: 11-19-2023 Iron and Iron binding capacity panel - Serum or Plasma IRON AND TIBC Lab Routine Body mass index (BMI) of 50-59.9 in adult ([facility]) Expected: 08/20/2023, Expires: 11/19/2023 [facility] Work Phone: Comment on above: Expected: 08/20/2023 , Expires: 11/19/2023 Start: 08-20-2023 End: 11-19-2023 Lipid 1996 panel - Serum or Plasma LIPID PANEL BASIC Lab Routine High blood cholesterol Body mass index (BMI) of 50-59.9 in adult ([facility]) Expected: 08/20/2023, Expires: 11/19/2023 [facility] Work Phone: Comment on above: Expected: 08/20/2023 , Expires: 11/19/2023 Start: 08-20-2023 End: 11-19-2023 Natriuretic peptide.B prohormone N-Terminal [Mass/volume] in Serum or Plasma NT PRO BNP Lab Routine Body mass index (BMI) of 50-59.9 in adult ([facility]) Expected: 08/20/2023, Expires: 11/19/2023 [facility] Work Phone: Comment on above: Expected: 08/20/2023 , Expires: 11/19/2023 Start: 08-20-2023 End: 11-19-2023 NICOTINE & METAB, UR NICOTINE & METAB, UR Lab Routine Body mass index (BMI) of 50-59.9 in adult ([facility]) Expected: 08/20/2023, Expires: 11/19/2023 [facility] Work Phone: Comment on above: Expected: 08/20/2023 , Expires: 11/19/2023 Start: 08-20-2023 End: 11-19-2023 Thyrotropin [Units/volume] in Serum or Plasma THYROID STIMULATING HORMONE Lab Routine Angel's thyroiditis Body mass index (BMI) of 50-59.9 in adult ([facility]) Expected: 08/20/2023, Expires: 11/19/2023 [facility] Work Phone: Comment on above: Expected: 08/20/2023 , Expires: 11/19/2023 Start: 08-20-2023 End: 11-19-2023 TOXICOLOGY SCREEN, ROUTINE URINE TOXICOLOGY SCREEN, ROUTINE URINE Lab Routine Body mass index (BMI) of 50-59.9 in adult ([facility]) Expected: 08/20/2023, Expires: 11/19/2023 [facility] Work Phone: Comment on above: Expected: 08/20/2023 , Expires: 11/19/2023 Start: 08-20-2023 End: 11-19-2023 VITAMIN B1 (THIAMINE), WHOLE BLOOD VITAMIN B1 (THIAMINE), WHOLE BLOOD Lab Routine Body mass index (BMI) of 50-59.9 in adult ([facility]) Expected: 08/20/2023, Expires: 11/19/2023 [facility] Work Phone: Comment on above: Expected: 08/20/2023 , Expires: 11/19/2023 Start: 05-12-2023 Behavioral Health Screening Behavioral Health Screening [facility] Start: 01-10-2023 Covid-19 Vaccine () Covid-19 Vaccine () [facility] Start: 12-02-2021 Plain chest X-ray XR chest 1V portab [facility] Start: 12-02-2021 XR Chest Single view [facility] Work Phone: Start: 2021 Screening for malign ant neoplasm of cervix HPV Testing [facility] Start: 2012 Screening for malign ant neoplasm of cervix Pap Testing [facility] Start: 2010 Hepatitis B Vaccine (1 of 3 - 19+ 3-dose series) Hepatitis B Vaccine (1 of 3 - 19+ 3-dose series) [facility] Start: 2009 Adult BMI Follow Up Plan Adult BMI Follow Up Plan [facility] Start: 2009 HIV screening HIV Screening [facility] Start: 2003 Depression Screening Depression Scre ening [facility] Start: 2002 DTaP,Tdap and Td Vaccines (6 - Tdap) DTaP,Tdap and Td Vaccines (6 - Tdap) [facility] Start: 2002 Urine microalbumin profile DTaP,Tdap,Td Vaccine (6 - Tdap) [facility] End: 08-19-2024 ECG COMPLETE ECG COMPLETE ECG Routine Body mass index (BMI) of 50-59.9 in adult ([facility]) 1 Occurrences starting 08/20/2023 until 08/19/2024 [facility] Work Phone: Comment on above: 1 Occurrences starti ng 08/20/2023 until 08/19/2024 Patient Education [facility] Work Phone: Patient referral [facility] Work Phone: End: 09-18-2024 US Abdomen RUQ US ABD RIGHT UPPER QUADRANT Radiology Routine Body mass index (BMI) of 50-59.9 in adult ([facility]) 1 Occurrences starting 08/20/2023 until 09/18/2024 [facility] Work Phone: Comment on above: 1 Occurrences starti ng 08/20/2023 until 09/18/2024 End: 09-18-2024 XR Chest PA and Lateral XR CHEST 2V FRONTAL/LAT Radiology Routine Body mass index (BMI) of 50-59.9 in adult ([facility]) 1 Occurrences starting 08/20/2023 until 09/18/2024 [facility] Work Phone: Comment on above: 1 Occurrences starti ng 08/20/2023 until 09/18/2024 [id number] 310 IVF Work Phone: [facility] NEGATED: Highlighted row has been ruled out! Planned Goals not documented [id number] 310 IVF Work Phone: Immunizations Immunization Date Immunization Notes Care Provider Sonia miramontes 03-11-2023 influenza virus vacc ine, unspecified formulation Tacho Menendez DO Work Phone: [facility] Payers Date Payer Category Payer Self-pay [id number] 2022 Medicaid [id number] 2022 Medicaid [id number] 1991 Unknown [id number] 1991 Unknown [id number] 1991 Unknown [id number] 1991 Unknown [id number] 86 1990 Unknown [id number] 2.16.840.1.290706.3.579.2.12 86 1991 Unknown [id number] 2.16.840.1.611372.3.579.2.12 59 1991 Unknown [id number] 2.16.840.1.380048.3.579.2.12 59 1991 Unknown [id number] 2.16.840.1.063376.3.579.2.12 59 1991 Unknown [id number] 2.16.840.1.866968.3.579.2.12 59 1991 Unknown [id number] 2.16.840.1.730445.3.579.2.12 59 1991 Unknown [id number] 2.16.840.1.852480.3.579.2.12 59 1991 Unknown [id number] 2.16.840.1.468197.3.579.2.12 59 1991 Unknown [id number] 2.16.840.1.137347.3.579.2.12 59 1958 Medicaid [id number] Private Health Insurance [facility] [id number] Unknown [id number] Unknown Regular Insurance [id number] Unknown [employer] [id number] Unknown Regular Auto/Medical [id number] Unknown [id number] 2.16.840.1.752703.3.579.2.53 1 Unknown [id number] 2.16.840.1.871064.3.579.2.53 1 Unknown [id number] 2.16.840.1.406176.3.579.2.53 1 Unknown [id number] 2.16.840.1.246449.3.579.2.53 1 Social History Date Type Detail Facility Start: 12-02-2021 End: 05-17-2023 Tobacco smoking status ORIS Never smoked tobacco (finding) [facility] Start: 1990 Sex Assigned At Female F [facility] Start: 05-17-2023 End: 08-20-2023 Sex Assigned At [facility] Start: 05-17-2023 End: 08-20-2023 Tobacco use and exposure Smokeless tobacco non-user [facility] Work Phone: Start: 08-20-2023 End: 02-23-2024 Alcohol intake Current drinker of alcohol (finding) [facility] Start: 05-17-2023 End: 08-20-2023 History of Social function [facility] National Score (1-100), lower number is lower risk 86 [facility] Start: 08-20-2023 Alcohol Comment occ [facility] Start: 1990 Sex Assigned At Not on file [facility] Start: 08-26-2023 Gender identity Identifies as female gender (finding) [facility] Start: 08-26-2023 Sexual orientation Heterosexual (fin ding) [facility] Start: 09-14-2023 [facility] How often to you hav e [...] Start: 01-19-2024 Alcoholic beverage intake Ex-drinker (finding) [facility] Start: 12-13-2014 Sex Female (finding) [facility] NEGATED: Highlighted row - - [id number]-Lgpxhb 310 [facility] Work Phone: Functional Status Date Assessment Result Facility NEGATED: Highlighted row Functional performance Functional status health issues are not documented Disease JP-CYGHB-Cacscn 310 [facility] Work Phone: Mental Status Date Assessment Result Facility NEGATED: Highlighted row Cognitive function [Interpretation] Cognitive status health issues are not documented Disease DP-EOING-Wygltn 310 [facility] Work Phone: Clinical Notes 01-08-2023 [...] @ age 6 or 7 CHOLECYSTECTOMY 07/20/2019 (Rachaelzkaren) ERCP 06/2019 OTHER SURGICAL HISTORY 2020 IUI 07/10/20 [facility] SALPINGECTOMY Left 2011 ectopic REVIEW OF [...] of: GERARDO Vazquez documented in this encounter [facility] 03-22-2024 History of Presen t [...] 06/2019 OTHER SURGICAL HISTORY 2020 IUI 07/10/20 [facility] SALPINGECTOMY Left 2011 ectopic REVIEW OF [...] nursing note reviewed. Exam conducted with a traffic analyst present. Vitals: Estimated body mass index is [...] Tacho Menendez DO documented in this encounter [facility] 02-23-2024 History of Presen t [...] 06/2019 OTHER SURGICAL HISTORY 2020 IUI 07/10/20 [facility] SALPINGECTOMY Left 2011 ectopic REVIEW OF [...] nursing note reviewed. Exam conducted with a traffic analyst present. Vitals: Estimated body mass index is [...] of: GERARDO Vazquez documented in this encounter [facility] 10-09-2023 Note HNO ID: [id number] Author: LATONIA GREENE, PhD Service: ? Author Type: Psychologist Type: Progress Notes Filed: 10/17/2023 11:09 Note Text: [facility] BARIATRIC SURGERY BEHAVIORAL HEALTH EVALUATION BMI Surgical Pathway Visit type: Psychology Visit DATE OF SERVICE: October 09, 2023 TIME OF SERVICE: 1:00 PM - 2:00 PM COST CENTER: [facility] CPT CODE: - [id number] Virtual Psych Diagnostic Eval BILLING CODE: ENDO PSYL MAIN Jerel DATE OF FIRST SERVICE THIS CYCLE: October 09, 2023 SESSION #: 1 I have communicated my name and active licensure. The patient's identity and physical location (see below) were verified at the time of this visit. Either the patient or their legal community representative has been informed of the risks and benefits of -- and alternatives to -- treatment through a remote evaluation and consents to proceed with the evaluation remotely. This evaluation is NOT intended for forensic, disability or child custody purposes. The patient e-signed a copy of the consent form via [employer] and the [facility] insurance benefits, fees for service, emergency procedures, [...] EMR in case of emergency and/or disconnection. [address] [place] [address] (Change address in [employer], was mother) Alternate [employer] Bibi Arrieta (Mother) [phone] (Home Phone) Patient identified the following plan to follow in case of emergency: Go to emergency room (nearest is [facility]) or call 911. IDENTIFYING INFORMATION: Ms. [...] pt has l (more content not included)... [facility] 09-22-2023 Telephone encounter Note Can not schedule patient as there is already a patient scheduled for that day and time. Please advise. Thanks Meme Castrejon [facility] 09-22-2023 Telephone encounter Note ----- Message from Anna Ortiz RD sent at 09/17/2023 3:17 PM EDT ----- Regarding: virtual follow up Please schedule for a virtual up 6/7 at 1. The patient is aware, no call needed. Thank you! Anna [facility] 09-22-2023 Miscellaneous Notes Can not schedule [...] levels, no answer, left vm. Tonya Senior APRN.MANAGER FAST FOOD documented in this encounter [facility] 09-17-[address] - [...] full-liquid diet. Examples: Slim Fast Advanced Nutrition [place] Breakfast Essentials Light Start Drink mixed with [...] Bariatric Multivitamin and Calcium Citrate (total of 0103-7650 mg/day) * take calcium citrate separately from Multivitamin with iron at least 2 hours apart and 4 hours apart from additional calcium www.procarenow.[employer] - Bariatric Choice: 4 Complete Multivitamins (chewables) [...] grams per day documented in this encounter [facility] 09-17-2023 Note HNO ID: [id number] Author: ANNA ORTIZ RD Service: ? Author Type: Registered Dietitian Type: Progress Notes Filed: 09/17/2023 15:19 Note Text: [facility] Nutrition Therapy: Virtual Consult - Initial Assessment I have communicated my name and active licensure. The patient?s identity and physical location were verified at the time of this visit. Either the patient or their legal community representative has been informed of the risks [...] Your Guide to Surgery by next session [email or web address].[email or web address] -/scassets/files/org/[email or web address]/ guides/[email or web address]?la=en 2. Do not [...] Examples: ? Slim Fast Advanced Nutrition ? [place] Breakfast Essentials ?Light Start? Drink mixed with [...] AM, 2 in the PM) www.bariatricfusion.com - [employer]: 1 Bariatric Multivitamin and Calcium Citrate (total of 6289-1957 mg/day) * take calcium citrate separately from Multivitamin with iron at least 2 hours apart and 4 hours apart from additional calcium www.[employer] - Bariatric Choice: 4 Complete Multivitamins (chewables) per day Www.bariatricchoice.com - Bariatric Advantage: 2 Multivitamins and 3 Calcium Citrate Chewables per day * take calcium citrate separately from Multivitamin with iron at least 2 hours apart and 4 hours apart from additional calcium Www.bariatricadvantage.[employer] Start practicing eating slowly, chewing each bite [...] and using Phen (more content not included)... [facility] 09-17-2023 History of Presen t illness Narrative [facility] Nutrition Therapy: Virtual Consult - Initial Assessment I have communicated my name and active licensure. The patient s identity and physical location were verified at the time of this visit. Either the patient or their legal community representative has been informed of the risks [...] Your Guide to Surgery by next session https://[email or web address] -/scassets/files/org/[email or web address]/ [email or web address] [email or web address]?la=en 2. Do not skip [...] full-liquid diet. Examples: Slim Fast Advanced Nutrition [place] Breakfast Essentials Light Start Drink mixed with [...] Bariatric Multivitamin and Calcium Citrate (total of 7492-1326 mg/day) * take calcium citrate separately from Multivitamin with iron at least 2 hours apart and 4 hours apart from additional calcium www.[employer] - Bariatric Choice: 4 Complete Multivitamins (chewables) per day Www.bariatricchoice.com - Bariatric Advantage: 2 Multivitamins and 3 Calcium Citrate Chewables per day * take calcium citrate separately from Multivitamin with iron at least 2 hours apart and 4 hours apart from additional calcium Www.bariatricadvantage.[employer] Start practicing eating slowly, chewing each bite [...] suggested by 180 Initial weight: 295 lbs. May body weight is 155 lbs. Excess body weight is 140 lbs. Goal weight pre-op is 281 lbs. Protein needs are estimated at 85gm (1.2 - protein/kg IBW) Patient meets the National Institutes of Health guidelines for weight loss surgery and has [employer] therefore is required to complete 0 [...] TIME: 2:25 PM documented in this encounter [facility] 09-11-2023 Telephone encounter Note Attempted to call pt, re: hypothyroid and low vitamin d levels, no answer, left vm. Tonya Senior APRN.CNP [facility] 09-01-2023 Note HNO ID: [id number] Author: LATONIA GREENE, PhD Service: ? Author Type: Psychologist Type: Progress Notes Filed: 09/01/2023 13:22 Note Text: [facility] Progress Note 09/01/2023 Billing code: Jerel Patient did not attend, cancel, or reschedule this appointment. Provider left HIPAA compliant voicemail and MyChart message with contact information to reschedule. Latonia Greene, PhD Clinical Psychologist [facility] 09-01-2023 History of Presen t illness Narrative [facility] Progress Note 09/01/2023 Billing code: Jerel Patient did not attend, cancel, or reschedule this appointment. Provider left HIPAA compliant voicemail and MyChart message with contact information to reschedule. Latonia Greene, PhD Clinical Psychologist documented in this encounter [facility] 08-20-2023 Note HNO ID: [id number] Author: TONYA SENIOR APRN.MANAGER FAST FOOD Service: ? Author Type: Nurse Practitioner Type: Progress Notes Filed: 08/20/2023 16:21 Note Text: have communicated my name and active licensure. The patient's identity and physical location were verified at the time of this visit. Either the patient or their legal community representative has been informed of the risks and benefits of -- and alternatives to -- treatment through a remote evaluation and consents to proceed with the evaluation remotely. BMI MEDICAL CONSULT I have communicated my name and active licensure. The patient's identity and physical location were verified at the time of this visit. Either the patient or their legal community representative has been informed of the risks [...] Exercise: active lifestyle with toddler, works in [employer] Functional Capacity: -Walk 4 blocks on level [...] HEMOGLOBIN A1C - (more content not included)... [facility] 08-20-2023 History of Presen t illness Narrative Images from the original note were not included. have communicated my name and active licensure. The patient's identity and physical location were verified at the time of this visit. Either the patient or their legal community representative has been informed of the risks and benefits of -- and alternatives to -- treatment through a remote evaluation and consents to proceed with the evaluation remotely. BMI MEDICAL CONSULT I have communicated my name and active licensure. The patient's identity and physical location were verified at the time of this visit. Either the patient or their legal community representative has been informed of the risks [...] PANEL - LIPID PANEL BASIC Tonya Senior APRN.MANAGER FAST FOOD -- Recommend that she should not become [...] Obesity Medicine Visit documented in this encounter [facility] 06-13-2023 Evaluation note Encounter Date Diagnosis [...] weeks -Handed patient self referral to [facility] bariatric surgery program -Blaza-zf-ewoa A1c December 2022 5.4%-Follow up in clinic in 8 weeksThis note was created with voice recognition software. Please excuse errors in cake press operator. Jun, Dietary surveillance and counseling (ICD-10 - [...] for a goal of 5% weight reduction. [facility] 08-30-2023 Evaluation note* Encounter Date Diagnosis [...] on in the past and denies side adsobdt-Jomzc-xd-care A1c today 5.4%-Follow up in clinic in 4 weeksThis note was created with voice recognition software. Please excuse errors in cake press operator. Dec, Dietary surveillance and counseling (ICD-10 - [...] premade protein drink for breakfast, by plain Spanish yogurt and flavor yourself with cinnamon or [...] with the patient, and documenting clinical information. [employer] Other Chinm complaint+Reason for visit Narrative* Chief Complaint Obesity Reason for Visit Exercise counseling Severe obesity (BMI >= 40) [facility] Work Phone: Chiih complaint+Reason for visit Narrative* Chief Complaint Pos test, Cramping, Vaginal bleeding Reason for Visit Exercise counseling Severe obesity (BMI >= 40) [facility] Work Phone: Evaluation noteNo assessment information available [facility] Work Phone: evaluation note* Diagnosis Onset Date Resolution Status Exercise counseling acute Severe obesity (BMI >= 40) delilah kevin [facility] Work Phone: Evomration note* Diagnosis Body mass index (BMI) of 50-59.9 in adult (HCC)- Primary Body Mass Index 50.0-59.9, adult Angel's thyroiditis Chronic lymphocytic thyroiditis High blood cholesterol Pure hypercholesterolemia documented in this encounter [facility] note* Diagnosis NO SHOW- Primary [facility] Diagnosis Obesity, Class III, BMI 40-49.9 (morbid obesity) (HCC)- Primary Morbid obesity Dietary counseling Dietary surveillance and counseling [facility] Diagnosis Vitamin D deficiency- Primary Unspecified vitamin D deficiency [facility]* Diagnosis 25 weeks gestation of Second trimester state, incidental Diabetes mellitus screening Screening for diabetes mellitus size inconsistent with dates H/O premature delivery [facility]* Diagnosis Encounter for follow-up ultrasound of anatomy- Primary History of pre-eclampsia in prior , currently with other poor obstetric history History of delivery, currently with history of pre-term labor Obesity affecting in second trimester, unspecified obesity type [facility] Diagnosis Third trimester state, incidental 29 weeks gestation of documented in this encounter [facility]* Diagnosis Third trimester state, incidental 31 weeks gestation of H/O premature delivery [facility] N[facility] - Reported* Type Description Date Surgical History adnoidectomy Surgical History gall bladder Surgical History L Fallopian tube removed Hospitalization History See Above [facility] Other Hospital Discharge instructions Additional Instructions You may take bmfi-htz-cibfvld cough and cold medication as needed You may take mghj-hce-yhbudpq Tylenol and/or ibuprofen as needed Increase oral fluids Follow-up with family doctor as needed Return to the ER for any acute difficulty breathing high fever vomiting or any [facility] Work [facility] Hospital Discharge instructions Additional Instructions Nothing into vagina until seen by CR[facility]INAL INVESTIGATOR [employer]UST[employer]S May take Tylenol for discomfort Increase oral fluids Follow-up with [facility] INVESTIGATOR [facility] Return to the ER for heavy bleeding greater than a pad an hour feeling dizzy lightheaded or any other [facility] Work Phone: Hospital Discharge instructions Additional Instructions Follow-up with your OB in the next week.[facility] Work Phone: InstructionsNot on filedocumented in this encounter [facility] (narrative)* Diagnostic Procedure Only (Routine) - Pending Review Specialty Diagnoses / Procedures Referred By Contac t Referred To Contact US IMAGING Diagnoses Body mass index (BMI) of 50-59.9 in adult (HCC) Procedures US ABD RIGHT UPPER QUADRANT US ABDOMINAL REAL TIME W/IMAGE LIMITED Tonya Senior APRN.CNP [address] [id number] [facility] Referral ID Status Reason Start Date Expiration Date Visits Requested Visits Authorized [id number] Pending Review Auto-Generat ed Referral 08/20/2023 09/18/2024 1 1 * Outpatient Procedure (Routine) - Pending Review Specialty Diagnoses / Procedures Referred By Contac t Referred To Contact [facility] Diagnoses Body mass index (BMI) of 50-59.9 in adult (HCC) Procedures ECG COMPLETE ECG ROUTINE ECG W/LEAST 12 LDS W/I&R Tonya Senior APRN.CNP [address] [phone] [facility] [place] [address] [place] [id number] Referral ID Status Reason Start Date Expiration Date Visits Requested Visits Authorized [id number] Pending Review Auto-Generat ed Referral 08/20/2023 08/19/2024 1 1 [facility] Summary Purpose Family History No Family [...] section and content) DATE CREATED AUTHOR 10/31/2017 [facility] DATE CREATED AUTHOR AUTHOR'S ORGANIZ ATION 04/23/2020 [facility] DATE CREATED AUTHOR AUTHOR'S ORGANIZ ATION 08/08/2020 [facility] DATE CREATED AUTHOR AUTHOR'S ORGANIZ ATION 08/22/2020 [facility] ical Center DATE CREATED AUTHOR AUTHOR'S ORGANIZ ATION 06/11/2022 [facility] DATE CREATED AUTHOR AUTHOR'S ORGANIZ ATION 09/06/2023 [facility] DATE CREATED AUTHOR AUTHOR'S ORGANIZ ATION 10/03/2023 [facility] DATE CREATED AUTHOR AUTHOR'S ORGANIZ ATION 10/18/2023 [facility] DATE CREATED AUTHOR AUTHOR'S ORGANIZ ATION 01/20/2024 [facility] DATE CREATED AUTHOR AUTHOR'S ORGANIZ ATION 03/19/2024 [facility] DATE CREATED AUTHOR AUTHOR'S ORGANIZ ATION 04/02/2024 [facility] DATE CREATED AUTHOR AUTHOR'S ORGANIZ ATION 04/25/2024 [facility] dical Specialists EPIC Care Teams (unrecognized sec tion and content) Team Status: Inactive Member Role Status Dates Services Family Health Primary Care Provider Active Ck To PA-C Emergency Provider Active Team Status: Active Member Role Status Dates Services Family Health Primary Care Provider Active Team Status: Inactive Member Role Status Dates Services Family Health Primary Care Provider Active Marychuy Kyle , [facility]- Emergency Provider Active Team Status: Inactive Member Role Status Dates Nicholas Michaels DO Attending Provider Active St art: June 13, 2023 End: June 13, 2023 Team Status: Active Member Role Status Dates [facility] Primary Care Provider Active Start: June 13, 2023 Nicholas Michaels DO Attending Provider Active St art: June 13, 2023 Team Status: Inactive Member Role Status Dates [facility] Primary Care Provider Active Start: August 07, 2023 End: August 07, 2023 Nicholas Michaels DO Attending Provider Active St art: August 07, 2023 End: August 07, 2023 Team Status: Inactive Member Role Status Dates [facility] Primary Care Provider Active Start: October 06, 2023 End: October 06, 2023 Marychuy Kyle [facility] Emergency Provider Active Start: October 06, 2023 End: October 06, 2023 Team Status: Inactive Member Role Status Dates [facility] Primary Care Provider Active Start: February 26, 2024 End: February 26, 2024 Ck To PA-C Emergency Provider Active Start: February 26, 2024 End: February 26, 2024 Team Status: Inactive Member Role Status Dates [facility] Primary Care Provider Active Start: March 05, [...] or prosecute any alcohol or drug abuse patient.[facility] the event this information is protected by the Federal Confidentiality of Alcohol and Drug Abuse Patient Records regulations: The Federal rules restrict any use of the information to criminally investigate or prosecute any alcohol or drug abuse patient.[facility] HospitalIn the event this information is protected by the Federal Confidentiality of Alcohol and Drug Abuse Patient Records regulations: The Federal rules restrict any use of the information to criminally investigate or prosecute any alcohol or drug abuse patient.[facility] HospitalIn the event this information is protected by the Federal Confidentiality of Alcohol and Drug Abuse Patient Records regulations: The Federal rules restrict any use of the information to criminally investigate or prosecute any alcohol or drug abuse patient.[facility] HospitalIn the event this information is protected by the Federal Confidentiality of Alcohol and Drug Abuse Patient Records regulations: The Federal rules restrict any use of the information to criminally investigate or prosecute any alcohol or drug abuse patient.[facility] HospitalIn the event this information is protected by the Federal Confidentiality of Alcohol and Drug Abuse Patient Records regulations: The Federal rules restrict any use of the information to criminally investigate or prosecute any alcohol or drug abuse patient.[facility] FOR RECORDS PERTAINING TO PATIENTS WHO [...] ON THE PRIMARY CLINICAL RECORDS. [facility] [employer] [facility]. provides no warranty or guarantee of the accuracy or completeness of information in this document.
== END 2024-04-27 12:51 | disposition home or self-care (01) ==
LOC: NOMS 12:50
PROVIDERS: Visit Provider Obstetrics & Gynecology
DX: O99.283 Endocrine, nutritional and metabolic diseases complicating pregnancy, third trimester (principal); O09.293 Supervision of pregnancy with other poor reproductive or obstetric history, third trimester; Z87.51 Personal history of pre-term labor; Z3A.34 34 weeks gestation of pregnancy; E07.9 Disorder of thyroid, unspecified
CPT/HCPCS: 76816

== ENCOUNTER 2024-04-28 20:42 | Outpatient (OUT) | payer MEDICAID, SELFPAY ==
--- OUTSIDE RECORDS SUMMARY | 2024-04-28 20:46 | XMS_ITS | CCD ---
Author Organization [facility] Care Team Providers Care Program Supervisor Name Role Phone Agustin Patton Unavailable Unavailable Agustin Patton Unavailable Unavailable Bayron Mccarty Unavailable Unavailable Unavailable Unavailable Unavailable Unavailable Unavailable Unavailable [facility] Primary Care Provider DEMETRIUS To Emergency Provider [phone] DR TACHO MENENDEZ Attending Unavailable DR TACHO MENENDEZ Consulting Unavailable DR TACHO MENENDEZ Admitting Unavailable [facility] Primary Care Provider Anabella [facility] Marychuy E Emergency Provider [phone] Nicholas Michaels Unavailable [facility] Primary Care Provider DO Nicholas Michaels Attending Provider [phone] Unavailable Primary Care Provider Unavailabl e Unavailable Primary Care Provider Unavailabl e LATONIA GREENE Attending Unavailable TONYA SENIOR Attending Unavailable [facility] Primary Care Provider Anabella [facility] Marychuy E Emergency Provider LATONIA GREENE Referring Unavailable LATONIA GREENE Attending Unavailable ANNA ORTIZ Attending Unavailable TONYA SENIOR Referring Unavailable TONYA SENIOR Referring Unavailable TACHO MENENDEZ Referring Unavailable MAKEDA GROSS Attending Unavailable TACHO MENENDEZ Referring Unavailable Unavailable Primary Care Provider Unavailabl e [facility] Primary Care Provider DEMETRIUS To Emergency Provider Unavailable Primary Care Provider Unavailabl DO Devika Christie Emergency Provider [phone] Ck To Attending Unavailable Ck To Admitting Unavailable [facility] Primary Care Unavaila Marychuy Rey Attending Unavailable Marychuy Kyle Admitting Unavailable [facility] Primary Care Unavaila Nicholas Willams Attending Unavailable Nicholas Michaels Admitting Unavailable [facility] Primary Care Unavaila ble [facility] Primary Care Unavaila Devika Hillman [...] mg/ml oral solution (2 sources) Phenothiazine, Uncompetitive N-xevtap-G-aspartate Receptor Antagonist, Sigma-1 Agonist Start: 02-26-2024 take [...] mouth Daily 30 tablet 10/30/2023 10/29/2024 Active [place] (No Known Home Meds) (3 sources) Start: 10-06-2023 [place] (No Kn own Home Meds) Active October 06, 2023 12:00am Start: 06-18-2022 [place] (No Kn own Home Meds) Active June [...] oral solution (7 sources) alpha-Adrenergic Agonist, Uncompetitive G-eqzawo-N-asparta te Receptor Antagonist, Sigma-1 Agonist Start: 2 [...] 26, 2019 12:58pm July 28, 2020 7:27pm Jdzfxjnm-Kha-It-Fa () 1 mg Tablet (7 sources) Start: 12-31-2020 End: 07-04-2021 take 1 tablet by mouth once Jkoeqkso-Aqo-Kh-Fa () 1 mg Tablet Discontinued TAB PO December 30, 2020 11:00pm July 04, 2021 9:48am Start: 12-31-2020 End: 07-04-2021 take 1 tablet by mouth once Irbqiapq-Kof-Cc-F a () 1 mg Tablet Discontinued TAB PO December 31, 2020 12:00am July 04, 2021 10:48am progesterone 100 mg oral capsule (9 sources) Progesterone Start: 07-28-2020 End: 12-31-2020 Progesterone Micronized Discontinued 100 MG VAGINAL Twice daily July 28, 2020 12:00am December 31, 2020 9:55am Start: 06-19-2020 take 1 capsule by mo [facility] twice daily Progesterone Micronized 100 MG Oral Capsule TAKE 1 CAPSULE Twice daily insert capsules vaginally Quantity: 30 Refills: 3 Bibiana MD, Bayron Start : 19-Jun-2020 Active sennosides, skilled nursing 8.6 mg oral tablet (1 source) take [...] UA Negative Negative - 4(70) +++ mg/dL [facility] Blood, UA Negative Negative - 50 Bradley/mcL [facility] Clarity, UA Clear [facility] Color, UA Yellow [facility] Glucose, UA Negative Negative - 1999(110) ++++ mg/dL [facility] Interpretation and review of laboratory results Abnormal [facility] Ketones, UA Negative Negative - 160(16) ++++ mg/dL [facility] Leukocytes, UA Positive Negative - 500+++ Gabby/mcL [facility] Comment on above: small Nitrite, UA Negative Negative - Positive [facility] pH, UA 7 5 - 9 [facility] Protein, UA Negative Negative - 1999(20) ++++ mg/dL [facility] Spec Grav, UA 1.02 1 - 1.03 [facility] Urobilinogen, UA 0.2 0.2 - 12 mg/dL [facility] Urinalysis macro (dipstick) panel (U)on 03-22-2024 Bilirubin, UA Positive Negative - 4(70) +++ mg/dL [facility] Blood, UA Negative Negative - 50 Bradley/mcL [facility] Clarity, UA Clear [facility] Color, UA Yellow [facility] Glucose, UA Negative Negative - 1999(110) ++++ mg/dL [facility] Interpretation and review of laboratory results Normal [facility] Ketones, UA Positive Negative - 160(16) ++++ mg/dL [facility] Leukocytes, UA Positive Negative - 500+++ Gabby/mcL [facility] Nitrite, UA Negative Negative - Positive [facility] pH, UA 7 5 - 9 [facility] Protein, UA Positive Negative - 1999(20) ++++ mg/dL [facility] Spec Grav, UA 1.025 1 - 1.03 [facility] Urobilinogen, UA 1.0 0.2 - 12 mg/dL [facility] ALL CBC WITH AUTO DIFFon BASOPHILS ABSOLUTE AUTO 0 [facility] Basophils/100 WBC (Bld) 0.5 % 0.2 - 2.0 % [facility] Eosinophils/100 WBC (Bld) 2.4 % 0.9 - 7.0 % [facility] Erythrocyte distribution width (RBC) [Ratio] 13.2 % 11.0 - 15.0 % [facility] Hematocrit (Bld) [Volume fraction] 33.2 % Low 36.0 - 48.0 % [facility] Hemoglobin (Bld) [Mass/Vol] 11.1 g/dL Low 12.0 - 16.0 g/dL [facility] IMMATURE GRANULOCYTES ABS AUTO 0.02 [facility] Immature granulocytes/100 WBC (Bld) 0.3 % 0.0 - 0.5 % [facility] Interpretation and review of laboratory results Abnormal [facility] LYMPHOCYTES ABSOLUTE AUTO 2.1 [facility] Lymphocytes/100 WBC (Bld) 32.5 % 20.5 - 60.0 % [facility] MCH (RBC) [Entitic mass] 30.5 pg 26.7 - 34.0 pg [facility] MCHC (RBC) [Mass/Vol] 33.4 g/dL 29.9 - 35.2 g/dL [facility] MCV (RBC) [Entitic vol] 91.2 fL 81.0 - 99.0 fL [facility] MONOCYTES ABSOLUTE AUTO 0.3 [facility] Monocytes/100 WBC (Bld) 4.6 % 1.7 - 12.0 % [facility] NEUTROPHILS ABSOLUTE AUTO 3.9 [facility] Neutrophils/100 WBC (Bld) 59.7 % 43.0 - 75.0 % [facility] Platelet mean volume (Bld) [Entitic vol] 9.3 fL Low 9.5 - 13.5 fL [facility] TBH EO # 0.2 [facility] TB PLT 342 [facility] RBC 3.64 Low [facility] WBC 6.6 [facility] BioFire Not Detectedon 03-05 BioFire Not Detected Not detected Normal Not Detecte T adele [facility] Comment on above: Result Comment: This is a duplicate RP2.1 COVID (PCR) result to be used for statistical tracking purpose only. PERFORMED BY: [place] [address] PATHOLOGIST POLITICAL ADVISOR LION STANLEY M.D. Performed By: #### B IOFIRECOVNOTDE, QS, RESP PANEL UPP. #### [address] COVID-19 Detected/Not Detect edOrdered By: Devika De La Garza on 03-05-2024 SARS-CoV-2 (COVID-19) RNA YANET+non-probe Ql (Nph) Not detected Not Detecte [facility] Comment on above: This is a duplicate RP2.1 COVID (PCR) result to be used for statistical tracking purpose only. ECG 12 lead ECGon 03-05-2024 ECG 12 lead [place] [address] Electrocardiograph Report Signed Patient: Jaleesa Arrieta MR#: [id number] [birth year] : 1990 Acct:[id number] Age/Sex: 33 / F ADM Date: 03/05/24 Loc: ER Room: Type: [facility] ER Attending Dr: Ordering Provider: [...] Confirmed by DEVIKA DE LA GARZA DO ([id number]) on 03/06/2024 1:44:25 AM Referred By: Electronically Signed By: DEVIKA DE LA GARZA DO Transcribed By: MUS Signed By Devika De La Garza DO 03/06 0144 Normal [facility] Quick Strepon 03-05-2024 Quick Strep Streptococcus pyogen es Ag [Presence] in Throat by Rapid immunoassay Negative for Group A Strep Antigen Note 1 NOTE 2 Results are those of a screening test. NOTE 3 If clinically indicated please order a culture. NOTE 4 NOTE 5 Reference range = Negative PERFORMED BY: [place] [address] PATHOLOGIST POLITICAL ADVISOR LION STANLEY M.D. Normal [facility] Comment on above: Performed By: #### B IOFIRECOVNOTDE, QS, RESP PANEL UPP. #### [address] Respiratory (Upper) Panel, P CRon 03-05-2024 [...] A H3 Blank Space ------ PERFORMED BY: [place] [address] PATHOLOGIST POLITICAL ADVISOR LION STANLEY M.D. Normal [facility] Comment on above: Performed By: #### B IOFIRECOVNOTDE, QS, RESP PANEL UPP. #### [address] Respiratory pathogens DNA an d RNA panel - Nasopharynx by YANET with non-probe detectionOrdered By: Devika De La Garza on 03-05-2024 Respiratory pathogens DNA and RNA panel YANET+non-probe (Nph) [facility] Streptococcus pyogenes antig en detectionOrdered By: Devika De La Garza on 03-05-2024 S. pyogenes Ag Ql (Unsp spec) [facility] XR chest 1V portableon 03-05 XR chest 1V portable [facility] [place] [id number] XRay Report Signed Patient: Jaleesa Arrieta MR#: [id number] [birth year] : 1990 Acct:[id number] Age/Sex: 33 / F ADM Date: 03/05/24 Loc: ER Room: Type: [facility] ER Attending Dr: Copies to: [...] Priscilla Cunningham M.D.03/05/2024 9:34 PM Dictation Location: [place] [address] Transcribed By: LIDA 03/05/242133 Dictated By: Priscilla Cunningham MD 03/05/242130 Signed By: 03/05/242133 Normal [facility] Quick Strepon 02-26-2024 Quick Strep Streptococcus pyogen es Ag [Presence] in Throat by Rapid immunoassay Negative for Group A Strep Antigen Note 1 NOTE 2 Results are those of a screening test. NOTE 3 If clinically indicated please order a culture. NOTE 4 NOTE 5 Reference range = Negative PERFORMED BY: [address] [place] [address] PATHOLOGIST POLITICAL ADVISOR LION STANLEY M.D. Normal [facility] Comment on above: Performed By: #### Q S #### [facility] [address] [place] [address] Streptococcus pyogenes antig en detectionOrdered By: Ck To on 02-26-2024 S. pyogenes Ag Ql (Unsp spec) [facility] Urinalysis macro (dipstick) panel (U)on 02-23-2024 Bilirubin, UA Negative Negative - 4(70) +++ mg/dL [facility] Blood, UA Negative Negative - 50 Bradley/mcL [facility] Clarity, UA Clear [facility] Color, UA Yellow [facility] Glucose, UA Negative Negative - 1999(110) ++++ mg/dL [facility] Interpretation and review of laboratory results Abnormal [facility] Ketones, UA Negative Negative - 160(16) ++++ mg/dL [facility] Leukocytes, UA Positive Negative - 500+++ Gabby/mcL [facility] Comment on above: small Nitrite, UA Negative Negative - Positive [facility] pH, UA 7 5 - 9 [facility] Protein, UA Negative Negative - 1999(20) ++++ mg/dL [facility] Spec Grav, UA 1.02 1 - 1.03 [facility] Urobilinogen, UA 0.2 0.2 - 12 mg/dL [facility] ALL THYROID STIM HORMONEon 0 01-26-2024 TSH Qn 2.645 m[IU]/L [facility] Alanine aminotransferase [En zymatic activity/volume] in Serum or PlasmaOrdered By: Marychuy Kyle on 10-06-2023 ALT [Catalytic activity/Vol] 13 U/L Normal 7-52 [facility] Comment on above: Performed By: #### C BC, CMP, HCGQNT #### [facility] [address] [place] [address] Albumin [Mass/volume] in Ser um or Plasma by Bromocresol green (BCG) dye binding methoOrdered By: Marychuy Bullimore on 10-06-2023 Albumin BCG dye [Mass/Vol] 3.8 g/dL 3.5-5.7 [facility] Alkaline phosphatase [Enzyma tic activity/volume] in Serum or PlasmaOrdered By: Marychuy Bullimore on 10-06-2023 ALP [Catalytic activity/Vol] 61 U/L Normal 34-104 [facility] Comment on above: Performed By: #### C BC, CMP, HCGQNT #### [facility] [address] Aspartate aminotransferase [ Enzymatic activity/volume] in Serum or PlasmaOrdered By: Marychuy Bullimore on 10-06-2023 AST [Catalytic activity/Vol] 13 U/L Normal 13-39 [facility] Comment on above: Performed By: #### C BC, CMP, HCGQNT #### [facility] [address] Automated basophil %Ordered By: Marychuy Bullimore on 10-06-2023 Basophils/100 WBC (Bld) 0.6 % Normal . [facility] Comment on above: Performed By: #### C BC, CMP, HCGQNT #### [facility] [address] [place] [address] Automated basophil countOrde red By: Marychuy Bullimore on 10-06-2023 Basophils (Bld) [#/Vol] 0.0 10*3/uL Normal 0.0-0.2 [facility] Comment on above: Result Comment: PERF ORMED BY: [place] [address] PATHOLOGIST POLITICAL ADVISOR LION STANLEY M.D. Performed By: #### C BC, CMP, HCGQNT #### [facility] [address] [place] [address] Automated blood monocyte cou ntOrdered By: Marychuy Bullimore on 10-06-2023 Monocytes (Bld) [#/Vol] 0.5 10*3/uL Normal 0.0-0.8 [facility] Comment on above: Performed By: #### C BC, CMP, HCGQNT #### [address] Automated eosinophil %Ordere d By: Marychuy Bullimore on 10-06-2023 Eosinophils/100 WBC (Bld) 0.7 % Normal . [facility] Comment on above: Performed By: #### C BC, CMP, HCGQNT #### [address] Automated eosinophil countOr dered By: Marychuy Kathleenore on 10-06-2023 Eosinophils (Bld) [#/Vol] 0.1 10*3/uL Normal 0.0-0.45 [facility] Comment on above: Performed By: #### C BC, CMP, HCGQNT #### [address] Automated epithelial cells c ount in urine sediment (number/area)Ordered By: Marychuy Kyle on 10-06-2023 Epithelial cells Auto (Urine sed) [#/Area] 3-4 [HPF] 0-2 [facility] Automated monocyte %Ordered By: Marychuy Kathleenore on 10-06-2023 Monocytes/100 WBC (Bld) 6.7 % Normal . [facility] Comment on above: Performed By: #### C BC, CMP, HCGQNT #### [address] Automated neutrophil %Ordere d By: Marychuy Phaniimore on 10-06-2023 Neutrophils/100 WBC (Bld) 54.4 % Normal . [facility] Comment on above: Performed By: #### C BC, CMP, HCGQNT #### [address] Bacteria [Presence] in Urine by AutomatedOrdered By: Marychuy Kyle on 10-06-2023 Bacteria Auto Ql (U) None seen [HPF] None Seen [facility] Bilirubin Test strip Ql (U)O rdered By: Marychuy Kyle on 10-06-2023 Bilirubin Ql (U) Negative Negative [facility] Bilirubin.total [Mass/volume ] in Serum or PlasmaOrdered By: Marychuy Bullimore on 10-06-2023 Bilirubin [Mass/Vol] 0.2 mg/dL Low 0.3-1.0 [facility] Comment on above: Performed By: #### C BC, CMP, HCGQNT #### [facility] [address] [place] [address] [place] Calcium [Mass/volume] in Ser um or PlasmaOrdered By: Marychuy Bullimore on 10-06-2023 Calcium [Mass/Vol] 9.4 mg/dL Normal 8.6-10.3 [facility] Comment on above: Performed By: #### C BC, CMP, HCGQNT #### [facility] [address] Carbon dioxide, total [Moles /volume] in Serum or PlasmaOrdered By: Marychuy Bullimore on 10-06-2023 CO2 [Moles/Vol] 25.5 mmol/L Normal 21.0-31.0 [facility] Comment on above: Performed By: #### C BC, CMP, HCGQNT #### [facility] [address] [place] [address] [place] Chloride [Moles/volume] in S sondra or PlasmaOrdered By: Marychuy Bullimore on 10-06-2023 Chloride [Moles/Vol] 105 mmol/L Normal 98-107 [facility] Comment on above: Performed By: #### C BC, CMP, HCGQNT #### [facility] [address] Choriogonadotropin.beta subu nit [Units/volume] in Serum or PlasmaOrdered By: Marychuy Bullimore on 10-06-2023 HCG.beta subunit Qn 2799.00 m[IU]/mL [facility] Comment on above: Approximate Approxim ate hCG Gestational Age Range (mIU/ml) (weeks)0.2-1 5-50 1-2 50-500 2-3 100-5,000 3-4 500-10,000 4-5 1,000-50,000 5-6 10,000-100,000 6-8 15,000-200,000 8-12 10,000-100,000 Color of Urine by AutoOrdere d By: Marychuy Kyle on 10-06-2023 Color (U) Yellow Normal Yellow [facility] Comment on above: Order Comment: NEED MORE SPECIMEN Name Collection Type:: Clean-Voided Midstream Performed By: #### A DDONUAPLUS #### [address] Complete Blood Count Auto Di ffon 10-06-2023 Mean Corpuscular HGB Conc 34.4 g/dL Normal 32.0-35.0 [facility] Comment on above: Performed By: #### C BC, CMP, HCGQNT #### [place] [address] [place] Monocytes/100 WBC (Bld) 17.37 % Normal 0.00-20.00 [facility] Comment on above: Performed By: #### C BC, CMP, HCGQNT #### [place] [address] [place] NRBC% 0.2 /100{WBC} Normal 0-0.5 [facility] Comment on above: Performed By: #### C BC, CMP, HCGQNT #### [address] Comprehensive Metabolic Pane panchito 10-06-2023 Albumin [Mass/Vol] 3.8 g/dL Normal 3.5-5.7 [facility] Comment on above: Performed By: #### C BC, CMP, HCGQNT #### [place] [address] [place] Creatinine Clr Calc Pharmacy 180.48 Normal [facility] Comment on above: Performed By: #### C BC, CMP, HCGQNT #### [place] [address] [place] GFR/1.73 sq M.predicted MDRD (S/P/Bld) [Vol rate/Area] mL/min/{1.73_m2} Normal [facility] Comment on above: Performed By: #### C BC, CMP, HCGQNT #### [facility] [address] Creatinine [Mass/volume] in Serum or PlasmaOrdered By: Marychuy Kyle on 10-06-2023 Creatinine [Mass/Vol] 0.63 mg/dL Normal 0.60-1.20 [facility] Comment on above: Performed By: #### C BC, CMP, HCGQNT #### [facility] [address] [place] [address] [place] Dipstick and Microscopicon 0 10-06-2023 Appearance (U) Clear Normal Clear [facility] Comment on above: Order Comment: NEED MORE SPECIMEN Name Collection Type:: Clean-Voided Midstream Performed By: #### A DDONUAPLUS #### [address] Bacteria,Urine None Seen Normal None Seen [facility] Comment on above: Order Comment: NEED MORE SPECIMEN Name Collection Type:: Clean-Voided Midstream Performed By: #### A DDONUAPLUS #### [place] [address] [place] Bilirubin,Urine Negative Normal Negative [facility] Comment on above: Order Comment: NEED MORE SPECIMEN Name Collection Type:: Clean-Voided Midstream Performed By: #### A DDONUAPLUS #### [address] Glucose Ql (U) Normal Normal Normal [facility] Comment on above: Order Comment: NEED MORE SPECIMEN Name Collection Type:: Clean-Voided Midstream Performed By: #### A DDONUAPLUS #### [place] [address] [place] Hyaline Casts,Urine 0-8 Normal 0-8 [facility] Comment on above: Order Comment: NEED MORE SPECIMEN Name Collection Type:: Clean-Voided Midstream Result Comment: PERF ORMED BY: [place] [address] PATHOLOGIST POLITICAL ADVISOR LION STANLEY M.D. Performed By: #### A DDONUAPLUS #### [place] [address] [place] Ketones Ql (U) Negative Normal Negative [facility] Comment on above: Order Comment: NEED MORE SPECIMEN Name Collection Type:: Clean-Voided Midstream Performed By: #### A DDONUAPLUS #### [address] Leukocyte esterase Test strip Ql (U) 1+ High Negative [facility] Comment on above: Order Comment: NEED MORE SPECIMEN Name Collection Type:: Clean-Voided Midstream Performed By: #### A DDONUAPLUS #### [place] [address] [place] Nitrite,Urine Negative Normal Negative [facility] Comment on above: Order Comment: NEED MORE SPECIMEN Name Collection Type:: Clean-Voided Midstream Performed By: #### A DDONUAPLUS #### [place] [address] [place] Occult Blood,Urine Negative Normal Negative [facility] Comment on above: Order Comment: NEED MORE SPECIMEN Name Collection Type:: Clean-Voided Midstream Result Comment: PERF ORMED BY: [place] [address] PATHOLOGIST POLITICAL ADVISOR LION STANLEY M.D. Performed By: #### A DDONUAPLUS #### [place] [address] [place] Protein,Urine Negative Normal Negative [facility] Comment on above: Order Comment: NEED MORE SPECIMEN Name Collection Type:: Clean-Voided Midstream Performed By: #### A DDONUAPLUS #### [place] [address] [place] RBC LM.HPF (Urine sed) [#/Area] 0 /[HPF] Normal 0-4 [facility] Comment on above: Order Comment: NEED MORE SPECIMEN Name Collection Type:: Clean-Voided Midstream Performed By: #### A DDONUAPLUS #### [place] [address] [place] Specificy [place],Urine 1.017 Normal 1.001-1.030 [facility] Comment on above: Order Comment: NEED MORE SPECIMEN Name Collection Type:: Clean-Voided Midstream Performed By: #### A DDONUAPLUS #### [address] Squamous Epithelial Cell,Urine 3-4 High 0-2 [facility] Comment on above: Order Comment: NEED MORE SPECIMEN Name Collection Type:: Clean-Voided Midstream Performed By: #### A DDONUAPLUS #### [address] Urobilinogen,Urine Normal Normal Normal [facility] Comment on above: Order Comment: NEED MORE SPECIMEN Name Collection Type:: Clean-Voided Midstream Performed By: #### A DDONUAPLUS #### [address] WBC,Urine 3-4 Normal 0-4 [facility] Comment on above: Order Comment: NEED MORE SPECIMEN Name Collection Type:: Clean-Voided Midstream Performed By: #### A DDONUAPLUS #### [address] Erythrocyte distribution wid th [Ratio] by Automated countOrdered By: Marychuy Kyle on 10-06-2023 Erythrocyte distribution width (RBC) [Ratio] 13.4 % Normal 11.9-15.3 [facility] Comment on above: Performed By: #### C BC, CMP, HCGQNT #### [address] Erythrocytes [#/area] in Uri ne sediment by Automated countOrdered By: Marychuy Bullimore on 10-06-2023 RBC Auto (Urine sed) [#/Area] 0-1 [HPF] 0-4 [facility] Erythrocytes [#/volume] in B lood by Automated countOrdered By: Marychuy Bullimore on 10-06-2023 RBC (Bld) [#/Vol] 4.08 10*6/uL Normal 3.60-5.00 [facility] Comment on above: Performed By: #### C BC, CMP, HCGQNT #### [place] [id number] [facility] Glucose [Mass/volume] in Ser um or PlasmaOrdered By: Marychuy Kyle on 10-06-2023 Glucose [Mass/Vol] 100 mg/dL Normal 70-100 [facility] Comment on above: ADA recommended refe rence rangeRandom Glucose Reference Range is dependent on time and content of last meal. Glucose of more than 200 mg/dL in a nonstressed, ambulatory subject supports the diagnosis of Diabetes Mellitus. Result Comment: Reubens om Glucose Reference Range is dependent on time and content of last meal. Glucose of more than 200 mg/dL in a nonstressed, ambulatory subject supports the diagnosis of Diabetes Mellitus. ADA recommended reference range Performed By: #### C BC, CMP, HCGQNT #### [address] HCG,Quantitativeon HCG,Quantitative 2799.00 m[iU]/mL Normal [facility] Comment on above: Result Comment: Appr oximate Approximate hCG Gestational Age Range (mIU/ml) (weeks) 0.2-1 5-50 1-2 50-500 2-3 100-5,000 3-4 500-10,000 4-5 1,000-50,000 5-6 10,000-100,000 6-8 15,000-200,000 8-12 10,000-100,000 PERFORMED BY: [place] [address] PATHOLOGIST POLITICAL ADVISOR LION STANLEY M.D. Performed By: #### C BC, CMP, HCGQNT #### [place] [id number] [facility] Hematocrit [Volume Fraction] of Blood by Automated countOrdered By: Marychuy Kyle on 10-06-2023 Hematocrit (Bld) [Volume fraction] 36.7 % Normal 34.0-46.4 [facility] Comment on above: Performed By: #### C BC, CMP, HCGQNT #### [address] Hemoglobin [Mass/volume] in BloodOrdered By: Marychuy Kyel on 10-06-2023 Hemoglobin (Bld) [Mass/Vol] 12.6 g/dL Normal 11.8-15.4 [facility] Comment on above: Performed By: #### C BC, CMP, HCGQNT #### [facility] [address] Ketones Auto test strip (U) [Mass/Vol]Ordered By: Marychuy Kyle on 10-06-2023 Ketones (U) [Mass/Vol] Negative Negative [facility] - UrinalysisOrder ed By: Marychuy Kyle on 10-06-2023 Hyaline casts LM Ql (Urine sed) 0-8 [LPF] 0-8 [facility] Leukocytes [#/area] in Urine sediment by Automated countOrdered By: Marychuy Kyle on 10-06-2023 WBC Auto (Urine sed) [#/Area] 3-4 [HPF] 0-4 [facility] Leukocytes [#/volume] correc inocencia for nucleated erythrocytes in Blood by Automated counOrdered By: Marychuy Kyle on 10-06-2023 WBC corrected for nucl RBC Auto (Bld) [#/Vol] 7.4 10*3/uL 3.8-11.6 [facility] Leukocytes [#/volume] in Blo od by Automated countOrdered By: Marychuy Kyle on 10-06-2023 WBC (Bld) [#/Vol] 7.4 10*3/uL Normal 3.8-11.6 [facility] Comment on above: Performed By: #### C BC, CMP, HCGQNT #### [facility] [address] [place] [address] [place] Lymphocytes [#/volume] in Bl ood by Automated countOrdered By: Marychuy Kyle on 10-06-2023 Lymphocytes (Bld) [#/Vol] 2.8 10*3/uL Normal 1.00-4.8 [facility] Comment on above: Performed By: #### C BC, CMP, HCGQNT #### [facility] [address] [place] [address] Lymphocytes/100 leukocytes i n Blood by Automated countOrdered By: Marychuy Kyle on 10-06-2023 Lymphocytes/100 WBC (Bld) 37.6 % Normal . [facility] Comment on above: Performed By: #### C BC, CMP, HCGQNT #### [facility] [address] [place] [address] MCH [Entitic mass] by Automa inocencia countOrdered By: Marychuy Kyle on 10-06-2023 MCH (RBC) [Entitic mass] 31.0 pg Normal 24.7-34.3 [facility] Comment on above: Performed By: #### C BC, CMP, HCGQNT #### [address] MCHC Auto (RBC) [Mass/Vol]Or dered By: Marychuy Kyle on 10-06-2023 MCHC (RBC) [Mass/Vol] 34.4 g/dL 32.0-35.0 [facility] MCV [Entitic volume] by Auto mated countOrdered By: Marychuy Kyle on 10-06-2023 MCV (RBC) [Entitic vol] 90.1 fL Normal 80-100 [facility] Comment on above: Performed By: #### C BC, CMP, HCGQNT #### [facility] [address] [place] [address] Monocyte distribution width [Entitic volume] in Blood by AutomatedOrdered By: Marychuy Kyle on 10-06-2023 Monocyte distribution width Auto (Bld) [Entitic vol] 17.37 % 0.00-20.00 [facility] Neutrophils [#/volume] in Bl ood by Automated countOrdered By: Marychuy Kyle on 10-06-2023 Neutrophils (Bld) [#/Vol] 4.0 10*3/uL Normal 1.8-7.7 [facility] Comment on above: Performed By: #### C BC, CMP, HCGQNT #### [facility] [address] [place] [address] Nitrite Test strip Ql (U)Ord ered By: Marychuy Kyle on 10-06-2023 Nitrite Ql (U) Negative Negative [facility] No Panel InformationOrdered By: Marychuy Kyle on 10-06-2023 Estimated GFR (CKD-EPI) > 60.0 mL/Min [facility] Creatinine Clearance (Chem 180.48 [facility] Nucleated erythrocytes [Pres ence] in Blood by Automated countOrdered By: Marychuy Kyle on 10-06-2023 Nucleated RBC Auto Ql (Bld) 0.2 /100{WBC} 0-0.5 [facility] Platelet mean volume [Entiti c volume] in Blood by Automated countOrdered By: Marychuy Kyle on 10-06-2023 Platelet mean volume (Bld) [Entitic vol] 7.5 fL Normal 6.3-10.7 [facility] Comment on above: Performed By: #### C BC, CMP, HCGQNT #### [facility] [address] [place] [address] [place] Platelets [#/volume] in Bloo d by Automated countOrdered By: Marychuy Kyle on 10-06-2023 Platelets (Bld) [#/Vol] 367 10*3/uL Normal 150-450 [facility] Comment on above: Performed By: #### C BC, CMP, HCGQNT #### [facility] [address] [place] [address] [place] Potassium [Moles/volume] in Serum or PlasmaOrdered By: Marychuy Kyle on 10-06-2023 Potassium [Moles/Vol] 4.1 mmol/L Normal 3.5-5.1 [facility] Comment on above: Performed By: #### C BC, CMP, HCGQNT #### [facility] [address] [place] [address] [place] Protein Auto test strip (U) [Mass/Vol]Ordered By: Marychuy Kyle on 10-06-2023 Protein (U) [Mass/Vol] Negative Negative [facility] Protein [Mass/volume] in Ser um or PlasmaOrdered By: Marychuy Kyle on 10-06-2023 Protein [Mass/Vol] 7.4 g/dL Normal 6.4-8.9 [facility] Comment on above: Performed By: #### C BC, CMP, HCGQNT #### [address] Serum globulin measurement b y calculation (mass/volume)Ordered By: Marychuy Bullimore on 10-06-2023 Globulin (S) [Mass/Vol] 3.6 g/dL Normal [facility] Comment on above: Performed By: #### C BC, CMP, HCGQNT #### [address] Serum or plasma albumin/glob ulin mass ratioOrdered By: Marychuy Bullimore on 10-06-2023 Albumin/Globulin [Mass ratio] 1.1 {ratio} [facility] Comment on above: Performed By: #### C BC, CMP, HCGQNT #### [address] Serum or plasma anion gap de terminationOrdered By: Marychuy Bullimore on 10-06-2023 Anion gap [Moles/Vol] 12.6 mmol/L Normal 6.0-15.0 [facility] Comment on above: Performed By: #### C BC, CMP, HCGQNT #### [address] Sodium [Moles/volume] in Ser um or PlasmaOrdered By: Marychuy Bullimore on 10-06-2023 Sodium [Moles/Vol] 139 mmol/L Normal 136-145 [facility] Comment on above: Performed By: #### C BC, CMP, HCGQNT #### [address] Specific gravity Auto test s trip (U) [Rel density]Ordered By: Marychuy Bullimore on 10-06-2023 Specific gravity (U) [Rel density] 1.017 1.001-1.030 [facility] Urea nitrogen [Mass/volume] in Serum or PlasmaOrdered By: Marychuy Bullimore on 10-06-2023 Urea nitrogen [Mass/Vol] 7 mg/dL Normal 7-25 [facility] Comment on above: Performed By: #### C BC, CMP, HCGQNT #### [facility] [address] Urine clarity by refractomet ry automatedOrdered By: Marychuy Kyle on 10-06-2023 Clarity Refractometry automated (U) Clear Clear [facility] Urine glucose measurement by automated test strip (mass/volume)Ordered By: Marychuy Kyle on 10-06-2023 Glucose Auto test strip (U) [Mass/Vol] Normal mg/dL Normal [facility] Urine hemoglobin detection b y automated test stripOrdered By: Marychuy Jeronimoimdianne on 10-06-2023 Hemoglobin Auto test strip Ql (U) Negative Negative [facility] Urine leukocyte esterase det ection by automated test stripOrdered By: Marychuy Kyle on 10-06-2023 Leukocyte esterase Auto test strip Ql (U) 1+ Negative [facility] Urine pH measurement by auto mated test stripOrdered By: Marychuy Kyle on 10-06-2023 pH (U) 7.0 [pH] Normal 5.0-9.0 [facility] Comment on above: Order Comment: NEED MORE SPECIMEN Name Collection Type:: Clean-Voided Midstream Performed By: #### A DDONUAPLUS #### [facility] [address] Urobilinogen Auto test strip (U) [Mass/Vol]Ordered By: Marychuy Kyle on 10-06-2023 Urobilinogen (U) [Mass/Vol] Normal mg/dL Normal [facility] CNPMerced 09-11-2023 LIZ Telephone (MARTIN) -------- JALEESA ARRIETA ([id number]) 1990 F Date Time Provider Department 09/11/23 [...] Date Reviewed: 08/20/2023 Reviewed by: Tonya Senior APRN.[employer]ING [employer]ANT OPERATOR - Fully Assessed Reason for Visit: Results [...] Encounter Status:Closed by TONYA SENIOR on 09/23/23 [facility] NICOTINE AND METAB, URon URIN ANABASINE QUANT <5 Normal [facility] Comment on above: Order Comment: Speci men Type: URINE SPECIMEN Ordering Facility: [facility] Address: [address] [place] [address] Performed By: #### U NICOT #### [facility] CLIA [id number] [address] [place] [address] URIN COTININE QUANT <15 Normal [facility] Comment on above: Order Comment: Speci men Type: URINE SPECIMEN Ordering Facility: [facility] Address: [address] [place] [address] Performed By: #### U NICOT #### [facility] CLIA [id number] [address] [place] [address] URIN NICOTINE QUANT <15 Normal [facility] Comment on above: Order Comment: Speci men Type: URINE SPECIMEN Ordering Facility: [facility] Address: [address] [place] [address] Result Comment: INTE RPRETIVE INFORMATION: Nicotine and Metabolites, Urine, Quantitative Methodology: Quantitative Liquid Chromatography-Tandem Mass Spectrometry Positive cutoff: Nicotine 15 ng/mL Cotinine 15 ng/mL 0-DD-Gibhtadd 50 ng/mL Anabasine 5 ng/mL For medical [...] developed and its performance characteristics determined by [email or web address]. It has not been cleared or approved by the [place] Food and Drug Administration. This test was performed in a CLIA certified laboratory and is intended for clinical purposes. Performed By: [email or web address] [address] [place] [address] [employer] Casting Operator: Rex Zuleta MD, PhD CLIA Number: [id number] Performed By: #### U NICOT #### [facility] CLIA [id number] [address] [place] [address] URINE 3 [place] COTININE <50 Normal [facility] Comment on above: Order Comment: Speci men Type: URINE SPECIMEN Ordering Facility: [facility] Address: [address] [place] [address] Performed By: #### U NICOT #### [facility] CLIA [id number] [address] [place] [address] TOXICOLOGY SCREEN, ROUTINE U RINEon 09-08-2023 Amphetamines Confirm (U) [Mass/Vol] Negative Normal Negative [facility] Comment on above: Order Comment: Speci men Type: URINE SPECIMEN Ordering Facility: [facility] Address: [address] [place] [address] Result Comment: Cuto ff threshold at 1000 ng/mL. Performed By: #### U TOX2 #### [facility] CLIA [id number] [address] [place] [address] [place] BARBITURATES, URINE Negative Normal Negative [facility] Comment on above: Order Comment: Speci men Type: URINE SPECIMEN Ordering Facility: [facility] Address: [address] [place] [address] Result Comment: Cuto ff threshold at 200 ng/mL. Performed By: #### U TOX2 #### [facility] CLIA [id number] [address] [place] [address] [place] BENZODIAZEPINES, UR Negative Normal Negative [facility] Comment on above: Order Comment: Speci men Type: URINE SPECIMEN Ordering Facility: [facility] Address: [address] [place] [address] Result Comment: Cuto ff threshold at 200 ng/mL. Performed By: #### U TOX2 #### [facility] CLIA [id number] [address] [place] [address] [place] Cannabinoids Screen Ql (U) Negative Normal Negative [facility] Comment on above: Order Comment: Speci men Type: URINE SPECIMEN Ordering Facility: [facility] Address: [address] [place] [address] Result Comment: Cuto ff threshold at 50 ng/mL. Performed By: #### U TOX2 #### [facility] CLIA [id number] [address] [place] [address] [place] Cocaine Ql (U) Negative Normal Negative [facility] Comment on above: Order Comment: Speci men Type: URINE SPECIMEN Ordering Facility: [facility] Address: [address] [place] [address] Result Comment: Cuto ff threshold at 300 ng/mL. Performed By: #### U TOX2 #### [facility] CLIA [id number] [address] [place] [address] [place] Ethanol (U) [Mass/Vol] <11 Normal <11 [facility] Comment on above: Order Comment: Speci men Type: URINE SPECIMEN Ordering Facility: [facility] Address: [address] [place] [address] Performed By: #### U TOX2 #### [facility] CLIA [id number] [address] [place] [address] [place] Opiates Screen Ql (U) Negative Normal Negative [facility] Comment on above: Order Comment: Speci men Type: URINE SPECIMEN Ordering Facility: [facility] Address: [address] [place] [address] Result Comment: Cuto ff threshold at 300 ng/mL. Performed By: #### U TOX2 #### [facility] CLIA [id number] [address] [place] [address] [place] oxyCODONE cutoff Screen (U) [Mass/Vol] Negative Normal Negative [facility] Comment on above: Order Comment: Speci men Type: URINE SPECIMEN Ordering Facility: [facility] Address: [address] [place] [address] Result Comment: Cuto ff threshold at 100 ng/mL. Performed By: #### U TOX2 #### [facility] CLIA [id number] [address] [place] [address] [place] Phencyclidine Ql (U) Negative Normal Negative [facility] Comment on above: Order Comment: Speci men Type: URINE SPECIMEN Ordering Facility: [facility] Address: [address] [place] [address] Result Comment: Cuto ff threshold at 25 ng/mL. Performed By: #### U TOX2 #### [facility] CLIA [id number] [address] [place] [address] [place] 25(OH)D[facility] 25-hydroxyvitamin D3 [Mass/Vol] 11.9 ng/mL Low 31.0-80.0 [facility] Comment on above: Order Comment: Speci men Type: BLOOD SPECIMEN Ordering Facility: [facility] Address: [address] [place] [address] Performed By: #### 2 276-4, 2132-9, 2284-8 #### [facility] CLIA [id number] [address] [place] [address] [place] CBC W Auto Differential pane l (Bld)on 09-05-2023 Basophils (Bld) [#/Vol] 10*3/uL Normal <0.11 [facility] Comment on above: Order Comment: Speci men Type: BLOOD SPECIMEN Ordering Facility: [facility] Address: [address] [place] [address] Performed By: #### 2 276-4, 2132-01, 2283-12 #### [facility] CLIA [id number] [address] [place] [address] [place] Basophils/100 WBC (Bld) 0.3 % Normal [facility] Comment on above: Order Comment: Speci men Type: BLOOD SPECIMEN Ordering Facility: [facility] Address: [address] [place] [address] Performed By: #### 2 276-4, 2132-01, 2283-12 #### [facility] CLIA [id number] [address] [place] [address] [place] Differential cell count method Nom (Bld) Auto Normal [facility] Comment on above: Order Comment: Speci men Type: BLOOD SPECIMEN Ordering Facility: [facility] Address: [address] [place] [address] Performed By: #### 2 276-4, 2132-01, 2283-12 #### [facility] CLIA [id number] [address] [place] [address] [place] Eosinophils (Bld) [#/Vol] 0.09 10*3/uL Normal <0.46 [facility] Comment on above: Order Comment: Speci men Type: BLOOD SPECIMEN Ordering Facility: [facility] Address: [address] [place] [address] Performed By: #### 2 276-4, 2132-01, 2283-12 #### [facility] CLIA [id number] [address] [place] [address] [place] Eosinophils/100 WBC (Bld) 1.3 % Normal [facility] Comment on above: Order Comment: Speci men Type: BLOOD SPECIMEN Ordering Facility: [facility] Address: [address] [place] [address] Performed By: #### 2 276-4, 2132-01, 2283-12 #### [facility] CLIA [id number] [address] [place] [address] [place] Erythrocyte distribution width (RBC) [Ratio] 12.6 % Normal 11.5-15.0 [facility] Comment on above: Order Comment: Speci men Type: BLOOD SPECIMEN Ordering Facility: [facility] Address: [address] [place] [address] Performed By: #### 2 276-4, 2132-01, 2283-12 #### [facility] CLIA [id number] [address] [place] [address] [place] Hematocrit (Bld) [Volume fraction] 38.0 % Normal 36.0-46.0 [facility] Comment on above: Order Comment: Speci men Type: BLOOD SPECIMEN Ordering Facility: [facility] Address: [address] [place] [address] Performed By: #### 2 276-4, 2132-01, 2283-12 #### [facility] CLIA [id number] [address] [place] [address] [place] Hemoglobin (Bld) [Mass/Vol] 12.8 g/dL Normal 11.5-15.5 [facility] Comment on above: Order Comment: Speci men Type: BLOOD SPECIMEN Ordering Facility: [facility] Address: [address] [place] [address] Performed By: #### 2 276-4, 2132-01, 2283-12 #### [facility] CLIA [id number] [address] [place] [address] [place] Immature granulocytes (Bld) [#/Vol] 10*3/uL Normal <0.10 [facility] Comment on above: Order Comment: Speci men Type: BLOOD SPECIMEN Ordering Facility: [facility] Address: [address] [place] [address] Performed By: #### 2 276-4, 2132-01, 2283-12 #### [facility] CLIA [id number] [address] [place] [address] [place] Immature granulocytes/100 WBC (Bld) 0.1 % Normal [facility] Comment on above: Order Comment: Speci men Type: BLOOD SPECIMEN Ordering Facility: [facility] Address: [address] [place] [address] Performed By: #### 2 276-4, 9, 2283-12 #### [facility] CLIA [id number] [address] [place] [address] [place] Lymphocytes (Bld) [#/Vol] 3.49 10*3/uL Normal 1.00-4.00 [facility] Comment on above: Order Comment: Speci men Type: BLOOD SPECIMEN Ordering Facility: [facility] Address: [address] [place] [address] Performed By: #### 2 276-4, 2132-01, 2283-12 #### [facility] CLIA [id number] [address] [place] [address] [place] Lymphocytes/100 WBC (Bld) 48.6 % Normal [facility] Comment on above: Order Comment: Speci men Type: BLOOD SPECIMEN Ordering Facility: [facility] Address: [address] [place] [address] Performed By: #### 2 276-4, 2132-01, 2283-12 #### [facility] CLIA [id number] [address] [place] [address] [place] MCH (RBC) [Entitic mass] 30.0 pg Normal 26.0-34.0 [facility] Comment on above: Order Comment: Speci men Type: BLOOD SPECIMEN Ordering Facility: [facility] Address: [address] [place] [address] Performed By: #### 2 276-4, 2132-01, 2283-12 #### [facility] CLIA [id number] [address] [place] [address] [place] MCHC (RBC) [Mass/Vol] 33.7 g/dL Normal 30.5-36.0 [facility] Comment on above: Order Comment: Speci men Type: BLOOD SPECIMEN Ordering Facility: [facility] Address: [address] [place] [address] Performed By: #### 2 276-4, 2132-01, 2283-12 #### [facility] CLIA [id number] [address] [place] [address] [place] MCV (RBC) [Entitic vol] 89.2 fL Normal 80.0-100.0 [facility] Comment on above: Order Comment: Speci men Type: BLOOD SPECIMEN Ordering Facility: [facility] Address: [address] [place] [address] Performed By: #### 2 276-4, 2132-01, 2283-12 #### [facility] CLIA [id number] [address] [place] [address] [place] Monocytes (Bld) [#/Vol] 0.48 10*3/uL Normal <0.87 [facility] Comment on above: Order Comment: Speci men Type: BLOOD SPECIMEN Ordering Facility: [facility] Address: [address] [place] [address] Performed By: #### 2 276-4, 2132-01, 2283-12 #### [facility] CLIA [id number] [address] [place] [address] [place] Monocytes/100 WBC (Bld) 6.7 % Normal [facility] Comment on above: Order Comment: Speci men Type: BLOOD SPECIMEN Ordering Facility: [facility] Address: [address] [place] [address] Performed By: #### 2 276-4, 2132-01, 2283-12 #### [facility] CLIA [id number] [address] [place] [address] [place] Neutrophils (Bld) [#/Vol] 3.09 10*3/uL Normal 1.45-7.50 [facility] Comment on above: Order Comment: Speci men Type: BLOOD SPECIMEN Ordering Facility: [facility] Address: [address] [place] [address] Performed By: #### 2 276-4, 2132-01, 2283-12 #### [facility] CLIA [id number] [address] [place] [address] [place] Neutrophils/100 WBC (Bld) 43.0 % Normal [facility] Comment on above: Order Comment: Speci men Type: BLOOD SPECIMEN Ordering Facility: [facility] Address: [address] [place] [address] Performed By: #### 2 276-4, 2132-01, 2283-12 #### [facility] CLIA [id number] [address] [place] [address] [place] Nucleated RBC (Bld) [#/Vol] 10*3/uL Normal <0.01 [facility] Comment on above: Order Comment: Speci men Type: BLOOD SPECIMEN Ordering Facility: [facility] Address: [address] [place] [address] Performed By: #### 2 276-4, 2132-01, 2283-12 #### [facility] CLIA [id number] [address] [place] [address] [place] Nucleated RBC/100 WBC (Bld) [Ratio] 0.0 /100 WBC Normal [facility] Comment on above: Order Comment: Speci men Type: BLOOD SPECIMEN Ordering Facility: [facility] Address: [address] [place] [address] Performed By: #### 2 276-4, 2132-01, 2283-12 #### [facility] CLIA [id number] [address] [place] [address] [place] Platelet mean volume (Bld) [Entitic vol] 9.2 fL Normal 9.0-12.7 [facility] Comment on above: Order Comment: Speci men Type: BLOOD SPECIMEN Ordering Facility: [facility] Address: [address] [place] [address] Performed By: #### 2 276-4, 2132-01, 8 #### [facility] CLIA [id number] [address] [place] [address] [place] Platelets (Bld) [#/Vol] 361 10*3/uL Normal 150-400 [facility] Comment on above: Order Comment: Speci men Type: BLOOD SPECIMEN Ordering Facility: [facility] Address: [address] [place] [address] Performed By: #### 2 276-4, 9, 2283-12 #### [facility] CLIA [id number] [address] [place] [address] [place] RBC (Bld) [#/Vol] 4.26 10*6/uL Normal 3.90-5.20 [facility] Comment on above: Order Comment: Speci men Type: BLOOD SPECIMEN Ordering Facility: [facility] Address: [address] [place] [address] Performed By: #### 2 276-4, 2132-01, 2283-12 #### [facility] CLIA [id number] [address] [place] [address] [place] WBC (Bld) [#/Vol] 7.18 10*3/uL Normal 3.70-11.00 [facility] Comment on above: Order Comment: Speci men Type: BLOOD SPECIMEN Ordering Facility: [facility] Address: [address] [place] [address] Performed By: #### 2 276-4, 9, 2283-12 #### [facility] CLIA [id number] [address] [place], [place] [id number] [place] Comprehensive metabolic 2000 panelon 09-05-2023 Albumin [Mass/Vol] 4.0 g/dL Normal 3.9-4.9 [facility] Comment on above: Order Comment: Speci men Type: BLOOD SPECIMEN Ordering Facility: [facility] Address: [address] [place] [address] Performed By: #### 2 4323-8 #### [facility] CLIA [id number] [address] [place] [address] ALP [Catalytic activity/Vol] 91 U/L Normal 34-123 [facility] Comment on above: Order Comment: Speci men Type: BLOOD SPECIMEN Ordering Facility: [facility] Address: [address] [id number] Performed By: #### 2 4323-8 #### [facility] CLIA [id number] [address] [place] [address] ALT [Catalytic activity/Vol] 15 U/L Normal 7-38 [facility] Comment on above: Order Comment: Speci men Type: BLOOD SPECIMEN Ordering Facility: [facility] Address: [address] [place] [address] Performed By: #### 2 4323-8 #### [facility] CLIA [id number] [address] [place] [address] Anion gap [Moles/Vol] 10 mmol/L Normal 9-18 [facility] Comment on above: Order Comment: Speci men Type: BLOOD SPECIMEN Ordering Facility: [facility] Address: [address] [phone] Performed By: #### 2 4323-8 #### [facility] CLIA [id number] [address] [place] [address] AST [Catalytic activity/Vol] 13 U/L Normal 13-35 [facility] Comment on above: Order Comment: Speci men Type: BLOOD SPECIMEN Ordering Facility: [facility] Address: [address] [place], [place] [address] Performed By: #### 2 4323-8 #### [facility] CLIA [id number] [address] [place] [address] Bilirubin [Mass/Vol] 0.3 mg/dL Normal 0.2-1.3 [facility] Comment on above: Order Comment: Speci men Type: BLOOD SPECIMEN Ordering Facility: [facility] Address: [address] [place] [address] Performed By: #### 2 4323-8 #### [facility] CLIA [id number] [address] [place] [address] Calcium [Mass/Vol] 9.5 mg/dL Normal 8.5-10.2 [facility] Comment on above: Order Comment: Speci men Type: BLOOD SPECIMEN Ordering Facility: [facility] Address: [address] [phone] Performed By: #### 2 4323-8 #### [facility] CLIA [id number] [address] [place] [address] Chloride [Moles/Vol] 106 mmol/L High 97-105 [facility] Comment on above: Order Comment: Speci men Type: BLOOD SPECIMEN Ordering Facility: [facility] Address: [address] [place] [address] Performed By: #### 2 4323-8 #### [facility] CLIA [id number] [address] [place] [address] CO2 [Moles/Vol] 26 mmol/L Normal 22-30 [facility] Comment on above: Order Comment: Speci men Type: BLOOD SPECIMEN Ordering Facility: [facility] Address: [address] [place] [address] Performed By: #### 2 4323-8 #### [facility] CLIA [id number] [address] [place] [address] Creatinine [Mass/Vol] 0.75 mg/dL Normal 0.58-0.96 [facility] Comment on above: Order Comment: Speci men Type: BLOOD SPECIMEN Ordering Facility: [facility] Address: [address] [place] [address] Performed By: #### 2 4323-8 #### [facility] CLIA [id number] [address] [place] [address] Creatinine and Glomerular filtration rate.predicted panel (S/P/Bld) 109 mL/min/1.73m??? Normal >=60 [facility] Comment on above: Order Comment: Laury bradshaw Type: BLOOD SPECIMEN Ordering Facility: [facility] Address: [address] [place] [address] Result Comment: Stephani mated Glomerular Filtration Rate [...] GFR. Performed By: #### 2 4323-8 #### [facility] CLIA [id number] [address] [place] [address] Glucose [Mass/Vol] 104 mg/dL High 74-99 [facility] Comment on above: Order Comment: Speci augustine Type: BLOOD SPECIMEN Ordering Facility: [facility] Address: [address] [place] [address] Result Comment: The [place] Diabetes Association (ADA) provides guidance for cutoff [...] Standards of Medical Care in Diabetes 2016, [place] Diabetes Association. Diabetes Care. 2016.39(Suppl 1). Performed By: #### 2 4323-8 #### [facility] CLIA [id number] [address] [place] [address] Potassium [Moles/Vol] 4.2 mmol/L Normal 3.7-5.1 [facility] Comment on above: Order Comment: Speci men Type: BLOOD SPECIMEN Ordering Facility: [facility] Address: [address] [place] [address] Performed By: #### 2 4323-8 #### [facility] CLIA [id number] [address] [place] [address] Protein [Mass/Vol] 7.4 g/dL Normal 6.3-8.0 [facility] Comment on above: Order Comment: Speci men Type: BLOOD SPECIMEN Ordering Facility: [facility] Address: [address] [place], [place] [address] Performed By: #### 2 4323-8 #### [facility] CLIA [id number] [address] [place] [address] Sodium [Moles/Vol] 142 mmol/L Normal 136-144 [facility] Comment on above: Order Comment: Speci men Type: BLOOD SPECIMEN Ordering Facility: [facility] Address: [address] [place] [address] Performed By: #### 2 4323-8 #### [facility] CLIA [id number] [address] [place] [address] Urea nitrogen [Mass/Vol] 12 mg/dL Normal 7-21 [facility] Comment on above: Order Comment: Speci men Type: BLOOD SPECIMEN Ordering Facility: [facility] Address: [address] [phone] Performed By: #### 2 4323-8 #### [facility] CLIA [id number] [address] [place] [address] Ferritin SerPl-ncon 2023 Ferritin [Mass/Vol] 86.7 ng/mL Normal 14.7-205.1 [facility] Comment on above: Order Comment: Speci men Type: BLOOD SPECIMEN Ordering Facility: [facility] Address: [address] [place], [place] [address] Performed By: #### 2 276-4, 2132-9, 2284-8 #### [facility] CLIA [id number] [address] [place] [address] [place] Folate SerPl-mCncon 09-05-19 Folate [Mass/Vol] 12.0 ng/mL Normal >4.7 [facility] Comment on above: Order Comment: Laury bradshaw Type: BLOOD SPECIMEN Ordering Facility: [facility] Address: [address] [place] [address] Performed By: #### 2 276-4, 2131-9, 2283-8 #### [facility] CLIA [id number] [address] [place] [address] [place] H. pylori IgG IA Qlon 2023 H. PYLORI IGG, QUAL Negative Normal Negative [facility] Comment on above: Order Comment: Laury bradshaw Type: BLOOD SPECIMEN Ordering Facility: [facility] Address: [address] [place] [address] Result Comment: Cash ot exclude H. pylori infection if the specimen collected 3-4 weeks after onset of symptoms. Performed By: #### 2 276-4, 2131-9, 2283-8 #### [facility] CLIA [id number] [address] [place] [address] [place] HbA1c (Bld)on 09-05-2023 Average glucose Estimated from glycated hemoglobin (Bld) [Mass/Vol] 108 mg/dL Normal [facility] Comment on above: Order Comment: Laury bradshaw Type: BLOOD SPECIMEN Ordering Facility: [facility] Address: [address] [place] [address] Result Comment: eAG: (Estimated average glucose) is a calculated value from HgbA1c and is sales representative womens health of the average blood glucose level in the last 2-3 month period. Performed By: #### 5 5454-3 #### [facility] CLIA [id number] [address] [place] [address] [place] HbA1c (Bld) [Mass fraction] 5.4 % Normal 4.3-5.6 [facility] Comment on above: Order Comment: Speci men Type: BLOOD SPECIMEN Ordering Facility: [facility] Address: [address] [place] [address] Result Comment: Amer [place] Diabetes Association guidelines indicate that patients with HgbA1c in the range 5.7-6.4% are at increased risk for development of diabetes, and intervention by lifestyle modification may be beneficial. HgbA1c greater or equal to 6.5% is considered diagnostic of diabetes. Performed By: #### 5 5454-3 #### [facility] CLIA [id number] [address] [place] [address] [place] Iron and Iron binding capaci ty panelon 09-05-2023 Iron [Mass/Vol] 94 ug/dL Normal 41-186 [facility] Comment on above: Order Comment: Speci men Type: BLOOD SPECIMEN Ordering Facility: [facility] Address: [address] [place] [address] Performed By: #### 5 0190-8, 3016-3, 13860-8 #### [facility] CLIA [id number] [address] [place] [address] [place] #### 46856-1 #### [facility] CLIA [id number] [address] [place] [address] [place] [facility] CLIA [id number] [address] [place] [address] Iron binding capacity [Mass/Vol] 310 ug/dL Normal 232-386 [facility] Comment on above: Order Comment: Speci men Type: BLOOD SPECIMEN Ordering Facility: [facility] Address: [address] [place], [place] [address] Performed By: #### 5 0190-8, 3016-3, 95169-5 #### [facility] CLIA [id number] [address] [place] [address] [place] #### 32569-0 #### [facility] CLIA [id number] [address] [facility] CLIA [id number] [address] [place], [place] [address] Iron/TIBC [Molar ratio] 30.3 % Normal 15.0-57.0 [facility] Comment on above: Order Comment: Speci men Type: BLOOD SPECIMEN Ordering Facility: [facility] Address: [address] [place] [address] Performed By: #### 5 0190-8, 3016-3, 45203-1 #### [facility] CLIA [id number] [address] [place] [address] [place] #### 18405-1 #### [facility] CLIA [id number] [address] [place] [address] [place] [facility] CLIA [id number] [address] [place], [place] [address] Lipid 1996 panelon 4 Cholesterol [Mass/Vol] 179 mg/dL Normal <200 [facility] Comment on above: Order Comment: Speci men Type: BLOOD SPECIMEN Ordering Facility: [facility] Address: [address] [place] [address] Result Comment: <200 mg/dL, Desirable 200-239 mg/dL, Borderline high >239 mg/dL, High Performed By: #### 2 276-4, 2132-01, 8 #### [facility] CLIA [id number] [address] [place] [address] [place] Cholesterol in HDL [Mass/Vol] 45 mg/dL Normal >39 [facility] Comment on above: Order Comment: Speci men Type: BLOOD SPECIMEN Ordering Facility: [facility] Address: [address] [place] [address] Result Comment: 40-5 9 mg/dL, Acceptable >59 mg/dL, High: Negative risk factor for coronary heart disease <40 mg/dL, Low: Positive risk factor for coronary heart disease Performed By: #### 2 276-, 2132-01, 2283-12 #### [facility] CLIA [id number] [address] [place] [address] [place] Cholesterol in LDL [Mass/Vol] 119 mg/dL High <100 [facility] Comment on above: Order Comment: Abbii men Type: BLOOD SPECIMEN Ordering Facility: [facility] Address: [address] [place] [address] Result Comment: <100 mg/dL, Optimal 100-129 mg/dL, Near optimal/above optimal 130-159 mg/dL, Borderline high 160-189 mg/dL, High >189 mg/dL, Very high Secondary prevention optimal LDL Cholesterol levels are recommended to be < 70 mg/dL Performed By: #### 2 276-4, 2132-01, 2283-12 #### [facility] CLIA [id number] [address] [place] [address] [place] Cholesterol in LDL/Cholesterol in HDL [Mass ratio] 2.64 {ratio} High <2.54 [facility] Comment on above: Order Comment: Abbii men Type: BLOOD SPECIMEN Ordering Facility: [facility] Address: [address] [place] [address] Result Comment: Belinda degroot: 1. National Cholesterol Education Program ATP III Guideline At-A-Glance Quick Desk Reference: National Heart, Lung, and Blood [place]. National Institutes of Health. 2001: NIH Publication No. 01-3305. 2. An International Atherosclerosis Society position paper: global recommendations for the management of dyslipidemia: executive summary, Atherosclerosis. 2014: 232(2):410-413. Performed By: #### 2 276-4, 2132-01, 2283-12 #### [facility] CLIA [id number] [address] [place] [address] [place] Cholesterol in VLDL [Mass/Vol] 15 mg/dL Normal <30 [facility] Comment on above: Order Comment: Abbii men Type: BLOOD SPECIMEN Ordering Facility: [facility] Address: [address] [place] [address] Performed By: #### 2 276-4, 2132-01, 2283-12 #### [facility] CLIA [id number] [address] [place], [place] [address] [place] Cholesterol non HDL [Mass/Vol] 134 mg/dL High <130 [facility] Comment on above: Order Comment: Speci men Type: BLOOD SPECIMEN Ordering Facility: [facility] Address: [address] [place] [address] Result Comment: <130 mg/dL, Optimal 130-159 mg/dL, Near optimal/above optimal 160-189 mg/dL, Borderline high 190-219 mg/dL, High >219 mg/dL, Very high Secondary prevention optimal non HDL Cholesterol levels are recommended to be <100 mg/dL Performed By: #### 2 276-4, 2132-01, 2283-12 #### [facility] CLIA [id number] [address] [place] [address] [place] Cholesterol.total/Cho lesterol in HDL [Mass ratio] 3.98 {ratio} Normal <5.10 [facility] Comment on above: Order Comment: Speci men Type: BLOOD SPECIMEN Ordering Facility: [facility] Address: [address] [place] [address] Performed By: #### 2 276-4, 2132-01, 2283-12 #### [facility] CLIA [id number] [address] [place] [address] [place] FASTING TIME 12 hrs Normal [facility] Comment on above: Order Comment: Speci men Type: BLOOD SPECIMEN Ordering Facility: [facility] Address: [address] [place], [place] [address] Performed By: #### 2 276-4, 2132-01, 2283-12 #### [facility] CLIA [id number] [address] [place] [address] [place] Triglyceride [Mass/Vol] 74 mg/dL Normal <150 [facility] Comment on above: Order Comment: Speci men Type: BLOOD SPECIMEN Ordering Facility: [facility] Address: [address] [place] [address] Result Comment: <150 mg/dL, Normal 150-199 mg/dL, Borderline high 200-499 mg/dL, High >499 mg/dL, Very high Performed By: #### 2 276-4, 9, 2283-12 #### [facility] CLIA [id number] [address] [place] [address] [place] NT-proBNP SerPl-mCncon 09-04 Natriuretic peptide.B prohormone N-Terminal [Mass/Vol] 48 pg/mL Normal <125 [facility] Comment on above: Order Comment: Laury bradshaw Type: BLOOD SPECIMEN Ordering Facility: [facility] Address: [address] [place] [address] Performed By: #### 2 276-4, 2132-01, 2283-12 #### [facility] CLIA [id number] [address] [place] [address] [place] TSH SerPl-aCncon 09-05-2023 TSH Qn 6.440 m[IU]/L High 0.270-4.200 [facility] Comment on above: Order Comment: Laury bradshaw Type: BLOOD SPECIMEN Ordering Facility: [facility] Address: [address] [place] [address] Result Comment: If t he patient is , TSH reference range varies by gestational period: First Trimester (weeks 9-12): 0.180-2.990 mIU/L Second Trimester: 0.110-3.980 mIU/L Third Trimester: 0.480-4.710 mIU/L Seth Crews et al. A Practical Approach for the Verifications and Determination of Site- and Trimester-Specific Reference Intervals for Thyroid Function tests in . Thyroid, 2019:29:3:412-420. Zhang Ybarra, et al. 2017 Guidelines of the [place] Thyroid Association for the Diagnosis and Management of Thyroid Disease during and the . Thyroid, 2017:27:3:315-389. Performed By: #### 2 276-4, 2132-01, 2283-12 #### [facility] CLIA [id number] [address] [place] [address] [place] VITAMIN B1 (THIAMINE), WHOLE BLOODon 09-05-2023 Thiamine (Bld) [Moles/Vol] 179.2 nmol/L Normal 84.3-213.3 [facility] Comment on above: Order Comment: Speci men Type: BLOOD SPECIMEN Ordering Facility: [facility] Address: [address] [place] [address] Result Comment: This assay measures the concentration of thiamine diphosphate (TDP), the primary active form of vitamin B1. Approximately 90 percent of vitamin B1 present in whole blood is TDP. Thiamine and thiamine monophosphate, which comprise the remaining 10 percent, are not measured. This test was developed and its performance characteristics determined by [facility] [place] ([facility]). It has not been cleared or approved by the FDA. [facility] is regulated under CLIA as qualified to perform high-complexity testing. This test is used for clinical purposes. It should not be regarded as investigational or for research. Performed By: #### B 1WB #### [facility] CLIA [id number] [address] [place] [address] [place] Vit B12 SerPl-mCncon 024 Cobalamin (Vitamin B12) [Mass/Vol] 612 pg/mL Normal 232-1245 [facility] Comment on above: Order Comment: Speci men Type: BLOOD SPECIMEN Ordering Facility: [facility] Address: [address] [place] [address] Performed By: #### 2 276-4, 2132-9, 2284-8 #### [facility] CLIA [id number] [address] [place] [address] [place] Glucose - FINGER STICKon Glucose [Mass/Vol] 5.4 mg/dL [employer] Other PAP ACOG PANEL 2: 30 to 65on 06-10-2022 . . Normal [facility] Comment on above: Result Comment: Perf ormed at: WB Performed By: #### 4 [id number] #### [facility] [address] [address] [address] Sachin Coates Age Gdln ACOG Testing 30-[address] [facility] Comment on above: Performed By: #### 4 [id number] #### [facility] [address] [address] [address] Sachin Coates DIAGNOSIS: Comment Normal [facility] Comment on above: Result Comment: NEGA TIVE FOR INTRAEPITHELIAL LESION OR MALIGNANCY. CELLULAR CHANGES ASSOCIATED WITH INFLAMMATION ARE PRESENT. THIS SPECIMEN WAS RESCREENED PART OF OUR TIRE MAINTENANCE TECHNICIAN PROGRAM. Performed at: WB Performed By: #### 4 [id number] #### [facility] [address] [address] [address] Sachin Coates HPV Aptima Negative Normal Negative [facility] Comment on above: Result Comment: This nucleic acid amplification test detects fourteen high-risk HPV types (16,18,31,33,35,39,45,51,52,56,58,59,66,68) without differentiation. Performed at: =G Performed By: #### 4 [id number] #### [facility] [address] [address] [address] Sachin Coates HPV Genotype Reflex Comment Normal [facility] Comment on above: Result Comment: Crit eria not met, HPV Genotype not performed. Performed at: WB Performed By: #### 4 [id number] #### [facility] [address] [place] [address] Dr. Sachin Coates Methodology: Comment Normal [facility] Comment on above: Result Comment: This liquid based ThinPrep(R) pap test was screened with the use of an image guided system. Performed at: WB Performed By: #### 4 [id number] #### [facility] [address] [place] [address] Dr. Sachin Coates Note: Comment Normal [facility] Comment on above: Result Comment: The Pap smear is a screening test designed to aid in the detection of premalignant and malignant conditions of the uterine cervix. It is not a diagnostic procedure and should not be used as the sole means of detecting cervical cancer. Both false-positive and false-negative reports do occur. . Performed at: WB Performed By: #### 4 [id number] #### [facility] [address] [address] [address] Sachin Coates Performed by: Comment Normal [facility] Comment on above: Result Comment: Peyton Beverly, Pelt Dropper (ASCP) Performed at: WB Performed By: #### 4 [id number] #### [facility] [address] [address] [address] Sachin Coates QC reviewed by: Comment Normal [facility] Comment on above: Result Comment: Cielo Cochran, Supervisory Pelt Dropper (ASCP) Performed at: WB Performed By: #### 4 [id number] #### [facility] [address] [address] [address] Sachin Coates Specimen adequacy: Comment Normal [facility] Comment on above: Result Comment: Sati sfactory for evaluation. Endocervical and/or squamous metaplastic cells (endocervical component) are present. Performed at: WB Performed By: #### 4 [id number] #### [facility] [address] [address] [address] Sachin Coates COVID-19 SOFIAOrdered By: Dario To on 12-02-2021 SARS-CoV+SARS-CoV-2 (COVID-19) Ag IA.rapid Ql (Resp) Negative Negative [facility] Comment on above: This is a duplicate Zuleyma SARS Antigen (PAMELLA) result to be used for statistical tracking purpose only. No Panel InformationOrdered By: Ck To on 12-02-2021 SARS Antigen (LFIA) [facility] Chart Updateon 08-08-2020 Chart Update Chart Update [...] 08 2020 10:18AM EST (Author) Normal [employer] SENIOR CUSTOMER SERVICE REPRESENTATIVE - Procedure Visiton 0 07-10-2020 SENIOR CUSTOMER SERVICE REPRESENTATIVE - Procedure Visit Chief Complaint IUI Active [...] [employer] ESTRADIOLon 07-08-2020 ESTRADIOL 186 pg/mL Normal [facility] Comment on above: Result Comment: Estr adiol measurement is performed using the Shruthi J Carlos Access Sensitive Estradiol Immunoassay. Estradiol testing is performed using a different test methodology at [facility] than other [facility]. Direct result comparison should only be made within the same method. REF VALUES EARLY FOLLICULAR 22-115 MID FOLLICULAR 25-115 OVULATORY PEAK 32-517 MID LUTEAL 37-246 POSTMENOPAUSE <15- 25 MALE <15- 32 Performed By: #### [facility] #### [facility] [address] [place] [address] Estradiol, Serumon E2 [Mass/Vol] 186 pg/mL MG-OBGYN-Ri sm an 310 IVF Work Phone: Comment on above: Estradiol measuremen t is performed using the Shruthi orangutrans Access Sensitive Estradiol Immunoassay. Estradiol testing is performed using a different test methodology at [facility] than other [facility]. Direct result comparison should only be made within the same method.REF VALUESEARLY FOLLICULAR 22-115MID FOLLICULAR 25-115OVULATORY PEAK 32-517MID LUTEAL 37-246POSTMENOPAUSE <15- 25MALE <15- 32 LUTEINIZING HORMONEon 2020 LUTEINIZING HORMONE 9.5 IU/L Normal [facility] Comment on above: Result Comment: Lute inizing Hormone [LH] is performed using the Shruthi orangutrans Access Immunoassay. LH testing is performed using a different test methodology at [facility] than other [facility]. Direct result comparison should only be made within the same method. REF VALUES FOLLICULAR PHASE 1.5-10.0 MID-CYCLE 13.0-72.0 LUTEAL PHASE 0.5-13.0 MENOPAUSE 15.0-65.0 PREPUBERTY 0- 3.0 CHILDREN 0- 6.0 ADULT MALE 1.0- 9.0 Performed By: #### G CCHA #### [facility] [address] [place] [address] Luteinizing Hormone, Serumon 07-08-2020 Lutropin Qn 9.5 {IU/L} YP-PHDMH-Zvee an 310 IVF Work Phone: Comment on above: Luteinizing Hormone [LH] is performed using the Shruthi orangutrans Access Immunoassay. LH testing is performed using a different test methodology at [facility] than other [facility]. Direct result comparison should only be made within the same method.REF VALUESFOLLICULAR PHASE 1.5-10.0MID-CYCLE 13.0-72.0LUTEAL PHASE 0.5-13.0MENOPAUSE 15.0-65.0PREPUBERTY 0- 3.0CHILDREN 0- 6.0ADULT MALE 1.0- 9.0 TYPE + SCREENon 07-06-2020 ABO TYPE A [facility] Comment on above: Performed By: #### T +S #### [facility] [address] [place] [address] RH TYPE Positive [facility] Comment on above: Performed By: #### T +S #### [facility] [address] [place] [address] ESTRADIOLon 07-05-2020 ESTRADIOL 58 pg/mL [facility] Comment on above: Result Comment: Estr adiol measurement is performed using the Shruthi orangutrans Access Sensitive Estradiol Immunoassay. Estradiol testing is performed using a different test methodology at [facility] than other [facility]. Direct result comparison should only be made within the same method. REF VALUES EARLY FOLLICULAR 22-115 MID FOLLICULAR 25-115 OVULATORY PEAK 32-517 MID LUTEAL 37-246 POSTMENOPAUSE <15- 25 MALE <15- 32 Performed By: #### G CCHA #### [facility] [address] [place] [address] Estradiol, Serumon E2 [Mass/Vol] 58 pg/mL MG-OBGYN-Ri sm an 310 IVF Work Phone: Comment on above: Estradiol measuremen t is performed using the Shruthi orangutrans Access Sensitive Estradiol Immunoassay. Estradiol testing is performed using a different test methodology at [facility] than other [facility]. Direct result comparison should only be made within the same method.REF VALUESEARLY FOLLICULAR 22-115MID FOLLICULAR 25-115OVULATORY PEAK 32-517MID LUTEAL 37-246POSTMENOPAUSE <15- 25MALE <15- 32 Hematologyon 07-05-2020 ABO group Nom (Bld) A MG-BROADCAST MAINTENANCE ENGINEER-Rism an 310 IVF Work Phone: Blood group antibody screen Ql Negative LV-ESWPT-Ytpy an 310 IVF Work Phone: Rh immune globulin screen (Bld) [Interp] Positive MG-OBGYN-R ism an 310 IVF Work Phone: LUTEINIZING HORMONEon 2020 LUTEINIZING HORMONE 9.2 IU/L Normal [facility] Comment on above: Result Comment: Lute inizing Hormone [LH] is performed using the Shruthi orangutrans Access Immunoassay. LH testing is performed using a different test methodology at [facility] than other [facility]. Direct result comparison should only be made within the same method. REF VALUES FOLLICULAR PHASE 1.5-10.0 MID-CYCLE 13.0-72.0 LUTEAL PHASE 0.5-13.0 MENOPAUSE 15.0-65.0 PREPUBERTY 0- 3.0 CHILDREN 0- 6.0 ADULT MALE 1.0- 9.0 Performed By: #### L H #### [facility] [address] [place] [address] Luteinizing Hormone, Serumon 07-05-2020 Lutropin Qn 9.2 {IU/L} MU-WSCAB-Gpzx an 310 IVF Work Phone: Comment on above: Luteinizing Hormone [LH] is performed using the Shruthi orangutrans Access Immunoassay. LH testing is performed using a different test methodology at [facility] than other [facility]. Direct result comparison should only be made within the same method.REF VALUESFOLLICULAR PHASE 1.5-10.0MID-CYCLE 13.0-72.0LUTEAL PHASE 0.5-13.0MENOPAUSE 15.0-65.0PREPUBERTY 0- 3.0CHILDREN 0- 6.0ADULT MALE 1.0- 9.0 SENIOR CUSTOMER SERVICE REPRESENTATIVE - Office Visiton SENIOR CUSTOMER SERVICE REPRESENTATIVE - Office Visit Diagnoses/Problems Assessed Morbid obesity [...] Bayron Mccarty MD Reproductive Endocrinology and Infertility [facility] [phone] [place] [phone] [place] 1 Amended By: Bayron Mccarty; Jun 19 [...] MD [facility] [phone] [place] [phone] [place] Appointment Duration:. 25 minutes; greater than half of the time was spent on counseling. 1 Amended By: Bayron Mccarty; Jun 19 2020 10:16 AM ESTChief Complaint follow up History of Present Skahgir7206/19/2020 9:30AM JALEESA ARRIETA , 30 year is contacted for an (audio-visual, or audio only) Telehealth visit. Today's visit was provided through telemedicine conferencing: Using KakKstati platform. Consent: The concept of telemedicine? has [...] is a telehealth appointment Results/Data HCG, Beta Licxnhircqvh49Ynp6889 11:58AMBayron Mccarty Test NameResultFlagReference HCG, Beta Quantitative<2 [...] HCG measurement is performed using the Shruthi [place] Access Immunoassay which detects intact HCG and free beta HCG subunit. This test is not indicated for use as a tumor marker. HCG testing is performed using a different test methodology at [facility] than other [facility]. Direct result comparison should only be made within the same method. REF VALUES NON FEMALE <5 MALES <5 Progesterone, Gesby84Oba2654 11:58AMBayron Mccarty Test NameResultFlagReference Progesterone, Serum10.5 ng/mL REF VALUES MALE <0.3- 1.2 FOLLICULAR PHASE <0.3- 1.4 LUTEAL PHASE 3.3-25.6 MID-LUTEAL PHASE 4.4-28.0 POSTMENOPAUSAL <0.3- 0.7 FEMALES: 1ST TRIMESTER 11.2- 90.0 2ND TRIMESTER 25.6- 89.4 3RD TRIMESTER 48.4-422.5 . Patients receiving DHEA-S supplements may show false elevation of progesterone for results near 1.0 ng/mL. Contact laboratory at [phone] if alternative testing is needed. CMV IgG and IgM Ld34Cwv6224 11:58AMBayron Mccarty Test NameResultFlagReference CMV IgG AntibodyREACTIVEASee Below Reference Range: NONREACTIVE CMV IGM [id number] 11:58AMBayron Mccarty Test NameResultFlagReference CMV IGM AB<30.00 [...] testing in two or more weeks. Xray Srsdfatgxhqbykvixdj85Hto 2020 12:00AMBayron Mccarty [Mar 28, 2020 9:43AM Bayron Mccarty] Reason: Unspecified for Xray Hysterosalpingogram Test NameResultFlagReference Xray Hysterosalpingogram Please click on the link to view the study images Anti Mullerian [id number] 12:03PMBayron Mccarty Test NameResultFlagReference Anti Mullerian Hormone6.36 ng/mL For assays employing antibodies, the possibility exists for interference by heterophile antibodies in the samples.1 1.Oswald Brunner Interferences in Immunoassays - still a threat. Clin. Chem. 2000; 46: 1427-2569. This test was developed and its performance characteristics determined by [employer]. It has not been cleared or approved by the Food and Drug Administration. Reference Range: Females 26 - 30y: 1.03 - 11.10 Median 4.20 AMH concentrations of >= 1.06 ng/mL is correlated with a better response to ovarian stimulation, produced more retrievable oocytes and higher odds of live according to Carey et al. Fertility and Sterility. 2010: 94:6813-4769. The current AMH test method correlates with [...] exclude an AMH-secreting ovarian tumor. Rubella IgG Ncqgavdy69Xvj0642 12:03PMBayron Mccarty Test NameResultFlagReference Rubella IgG AntibodyPOSITIVE [...] TSH WITH REFLEX TO FREE T4 IF [id number] 12:03PMBayron Mccarty Test NameResultFlagReference Thyroid Stimulating Hormone, Serum2.17 mIU/LSee Below Reference Range: 0.44 - 3.98 TSH testing is performed using different testing methodology at [facility] than at other [facility]. Direct result comparisons should only be made within the same method. Varicella Zoster IgG Pvtyxhwa57Fot6034 12:03PMBerryBayron mccarthy Test NameResultFlagReference Varicella Zoster IgG [...] altered results in serological assays. Vitamin D 25-Ykgkbda29Mqy3421 12:03PMBibiana Bayron Test NameResultFlagReference Vitamin D 25-Hydroxy, Level17 ng/mLA . DEFICIENCY: < 20 NG/ML INSUFFICIENCY: 20-29 NG/ML SUFFICIENCY: 30-100 NG/ML THIS ASSAY ACCURATELY QUANTIFIES THE SUM OF VITAMIN D3, 25-HYDROXY AND VIT D2,25-HYDROXY. { 17-Hydroxyprogesterone, Cnpgq75Xxf1576 12:03Shira Bayron Test NameResultFlagReference 17-Hydroxyprogesterone, Serum33 ng/dL [...] Endocrinol Metab. 1991;73:674-686; J Clin Endocrinol Metab. 1989;69;6530-1486; J Clin Endocrinol Metab. 1994;78:226-270. Pediatr Res 1988;23:525-529. MedLinePlus (accessed 6/16/14). This test was developed and its analytical performance characteristics have been determined by [facility] [place], [place]. It has not been cleared or approved by the U.S. Food and Drug Administration. This assay has been validated pursuant to the CLIA regulations and is used for clinical purposes. DHEA Sulfate, Fyibf13Wgk7432 12:03PMBibianaBayron Test NameResultFlagReference DHEA Sulfate, Rcjqe923 ug/dL65 - 395 MATURITY-BASED REFERENCE RANGES: PUBERTAL [...] laboratory for further information. Testosterone Free + Lsxdy65Oab5402 12:03PMBerryBayron mccarthy Test NameResultFlagReference Testosterone, Total63 ng/dLH2-45 For additional information, please refer to http://education.Skim.it/faq/ TotalTestosteroneLCMSMSF AQ165 (This link is being provided for informational/ educational purposes only.) This test was developed and its analytical performance characteristics have been determined by [facility]. It has not been cleared or approved by the U.S. Food and Drug Administration. This assay has been validated pursuant to the CLIA regulations and is used for clinical purposes. Testosterone, Free Serum8.8 pg/mLH0.1-6.4 This test was developed and its analytical performance characteristics have been determined by [facility] [place], [place]. It has not been cleared or approved by the U.S. Food and Drug Administration. This assay has been validated pursuant to the CLIA regulations and is used for clinical purposes. Hemoglobin R1R55Vkv0658 12:03PMBibiana Bayron Test NameResultFlagReference Hemoglobin A1C, Level5.5 % Diagnosis of Diabetes-Adults Non-Diabetic: < or = 5.6% Increased risk for developing diabetes: 5.7-6.4% Diagnostic of diabetes: > or = 6.5% . Monitoring of Diabetes Age (y) Therapeutic Goal (%) Adults: >18 <7.0 Pediatrics: 13-18 <7.5 7-12 <8.0 0- 6 7.5-8.5 [employer]. Diabetes Care 33(S1), May 2009. Estimated Average Fmyinnk276 MG/DL GC + Chlamydia By Amplified Nynwytokd79Lhd3127 12:03PMBayron Mccarty Test NameResultFlagReference N.GONORRHEA,AMPLIFIEDNEG ATIVENegative SOURCE: Urine Chlamydia Trach, AmplifiedNEGATIVENegativ e Hepatitis B Surface Pelxzru28Peh0638 12:03PMBayron Mccarty Test NameResultFlagReference Hep.B Surface AgNONREACTIVESee Below Reference Range: NONREACTIVE Biotin interference may cause falsely decreased results. Patients taking a Biotin dose of up to 5 mg/day should refrain from taking Biotin for 24 hours before sample collection. Providers may contact their local laboratory for further information. Hepatitis C Antibody Atmz87Cir0753 12:03PMBayron Mccarty NameResultRefduncane Hepatitis C-AntibodyNONREACTIVESee Below Reference Range: NONREACTIVE Results from patients taking biotin supplements or receiving high-dose biotin therapy should be interpreted with caution due to possible interference with this test. Providers may contact their local laboratory for further information. HIV 1/2 ANTIGEN/ANTIBODY SCREEN WITH REFLEX TO [id number] 12:03PMBayron Mccarty NameResultRefereoneliae HIV 1/2 AG/AB SCREENNONREACTIVESee Below Reference Range: NONREACTIVE HIV Ag/Ab screen is performed using the Siemens niviollEcometrica HIV Ag/Ab Combo assay which detects the presence of HIV p24 antigen as well as antibodies to HIV-1 (Group M and O) and HIV-2. SYPHILIS SCREENING WITH [id number] 12:03PMBayron Mccarty NameResultFlagRefereoneliae SYPHILIS TOTAL ANTIBODYNONREACTIVESee Below SOURCE: Reference Range: NONREACTIVE No significant level of Treponema pallidum antibody detected. Repeat testing in 2 to 4 weeks may be considered if early infection or incubating syphilis infection is suspected. Signatures Electronically signed by : Bayron Mccarty MD; Jun 19 2020 10:16AM EST (Author) [facility] CMV IGM ABon 04-20-2020 CMV IGM AB <30.00 Normal [facility] Comment on above: Result Comment: REFE RENCE [...] weeks. Performed By: #### C MVM2 #### [facility] [address] [place] [address] CMV IGG AND IGM ABon 020 CMV IGG AB REACTIVE Abnormal NONREACTIVE [facility] Comment on above: Performed By: #### C MV2 #### [facility] [address] [place] [address] PROGESTERONEon 04-16-2020 PROGESTERONE 10.5 ng/mL Normal [facility] Comment on above: Result Comment: REF VALUES MALE <0.3- 1.2 FOLLICULAR PHASE <0.3- 1.4 LUTEAL PHASE 3.3-25.6 MID-LUTEAL PHASE 4.4-28.0 POSTMENOPAUSAL <0.3- 0.7 FEMALES: 1ST TRIMESTER 11.2- 90.0 2ND TRIMESTER 25.6- 89.4 3RD TRIMESTER 48.4-422.5 . Patients receiving DHEA-S supplements may show false elevation of progesterone for results near 1.0 ng/mL. Contact laboratory at [phone] if alternative testing is needed. Performed By: #### P BOBBY #### [facility] [address] [place] [address] HCG,BETA-QUANTITATIVEon HCG,BETA-QUANTITATIVE <2 Normal [facility] Comment on above: Result Comment: Low- level [...] HCG measurement is performed using the Shruthi [place] Access Immunoassay which detects intact HCG and free beta HCG subunit. This test is not indicated for use as a tumor marker. HCG testing is performed using a different test methodology at [facility] than other [facility]. Direct result comparison should only be made within the same method. REF VALUES NON FEMALE <5 MALES <5 Performed By: #### H CGQU #### [address] [id number] SENIOR CUSTOMER SERVICE REPRESENTATIVE - Office Visiton SENIOR CUSTOMER SERVICE REPRESENTATIVE - Office Visit Chief Complaint An interactive [...] test results. Roby JEWELL. History of Present Okgvpqb4804/14/2020 9:30AM JALEESA PEREZON , 30 year is contacted for an (audio-visual, or audio only) Telehealth visit. Today's visit was provided through telemedicine conferencing: Using KakKstati platform. Consent: The concept of telemedicine? has [...] 25 MCG (1000 UT) Oral Tablet; Therapy: 47Wkp4399 to Recorded Dispense: 0 Days ; #: Sufficient Tablet; Refill: 0; KEVIN = N; Record; Last Updated By: Breezy Jasso; 2020 1:15:24 PM Vitals Vital Signs Recorded: 09Paj4861 09:08AM Height5 ft 6 in Laeqnc632 lb BMI Rdxjbpjyok62.81 BSA Calculated2.34 FQP53Azh7430 Gravida1 Para0 Pain Scale0 Physical Exam This is a telehealth appointment Results/Data Anti Mullerian Pjdlirb39Xbw2683 12:03PMBayron Mccarty Test NameResultFlagReference Anti Mullerian Hormone6.36 ng/mL For assays employing antibodies, the possibility exists for interference by heterophile antibodies in the samples.1 1.Oswald Crews. Interferences in Immunoassays - still a threat. Clin. Chem. 2000; 46: 9781-2964. This test was developed and its performance characteristics determined by [facility]. It has not been cleared or approved by the Food and Drug Administration. Reference Range: Females 26 - 30y: 1.03 - 11.10 Median 4.20 AMH concentrations of >= 1.06 ng/mL is correlated with a better response to ovarian stimulation, produced more retrievable oocytes and higher odds of live according to Gleicher et al. Fertility and Sterility. 2010: 94:3126-5752. The current AMH test method correlates with [...] exclude an AMH-secreting ovarian tumor. Anti Mullerian Guyqmcz87Wwv7224 12:03PMBayron Mccarty Test NameResultFlagReference Anti Mullerian Hormone6.36 ng/mL For assays employing antibodies, the possibility exists for interference by heterophile antibodies in the samples.1 1.Oswald Crews. Interferences in Immunoassays - still a threat. Clin. Chem. 2000; 46: 1848-2909. This test was developed and its performance characteristics determined by [facility]. It has not been cleared or approved by the Food and Drug Administration. Reference Range: Females 26 - 30y: 1.03 - 11.10 Median 4.20 AMH concentrations of >= 1.06 ng/mL is correlated with a better response to ovarian stimulation, produced more retrievable oocytes and higher odds of live according to Gleicher et al. Fertility and Sterility. 2010: 94:1933-8346. The current AMH test method correlates with [...] exclude an AMH-secreting ovarian tumor. Rubella IgG Npuqjsom33Tiw1937 12:03PMBayron Mccarty Test NameResultFlagReference Rubella IgG AntibodyPOSITIVE [...] TSH WITH REFLEX TO FREE T4 IF [id number] 12:03PMBayron Mccarty Test NameResultFlagReference Thyroid Stimulating Hormone, Serum2.17 mIU/LSee Below Reference Range: 0.44 - 3.98 TSH testing is performed using different testing methodology at [facility] than at other [facility]. Direct result comparisons should only be made within the same method. Varicella Zoster IgG Qykvcniu54Pec3439 12:03PMBayron Mccarty Test NameResultFlagReference Varicella Zoster IgG [...] altered results in serological assays. Vitamin D 25-Nmlhdbp77Gwx4096 12:03PMBayron Mccarty Test NameResultFlagReference Vitamin D 25-Hydroxy, Level17 ng/mLA . DEFICIENCY: < 20 NG/ML INSUFFICIENCY: 20-29 NG/ML SUFFICIENCY: 30-100 NG/ML THIS ASSAY ACCURATELY QUANTIFIES THE SUM OF VITAMIN D3, 25-HYDROXY AND VIT D2,25-HYDROXY. { 17-Hydroxyprogesterone, Urocg40Dkq2712 12:03PMBayron Mccarty Test NameResultFlagReference 17-Hydroxyprogesterone, Serum33 ng/dL [...] Endocrinol Metab. 1991;73:674-686; J Clin Endocrinol Metab. 1989;69;2192-7810; J Clin Endocrinol Metab. 1994;78:226-270. Pediatr Res 1988;23:525-529. MedLinePlus (accessed 10/25/13). This test was developed and its analytical performance characteristics have been determined by [facility]. It has not been cleared or approved by the U.S. Food and Drug Administration. This assay has been validated pursuant to the CLIA regulations and is used for clinical purposes. DHEA Sulfate, Dzbex65Ezd4988 12:03Bayron Silva Test NameResultFlagReference DHEA Sulfate, Guzue833 ug/dL65 - 395 MATURITY-BASED REFERENCE RANGES: PUBERTAL [...] laboratory for further information. Testosterone Free + Mzauk71Cpr6851 12:03PMBayron Mccarty Test NameResultFlagReference Testosterone, Total63 ng/dLH2-45 For additional information, please refer to http://education.Skim.it/faq/ TotalTestosteroneLCMSMSF AQ165 (This link is being provided for informational/ educational purposes only.) This test was developed and its analytical performance characteristics have been determined by [facility] [place], [place]. It has not been cleared or approved by the U.S. Food and Drug Administration. This assay has been validated pursuant to the CLIA regulations and is used for clinical purposes. Testosterone, Free Serum8.8 pg/mLH0.1-6.4 This test was developed and its analytical performance characteristics have been determined by [facility] [place], [place]. It has not been cleared or approved by the U.S. Food and Drug Administration. This assay has been validated pursuant to the CLIA regulations and is used for clinical purposes. Hemoglobin [id number] 12:03PMBayron Mccarty Test NameResultFlagReference Hemoglobin A1C, Level5.5 % Diagnosis of Diabetes-Adults Non-Diabetic: < or = 5.6% Increased risk for developing diabetes: 5.7-6.4% Diagnostic of diabetes: > or = 6.5% . Monitoring of Diabetes Age (y) Therapeutic Goal (%) Adults: >18 <7.0 Pediatrics: 13-18 <7.5 7-12 <8.0 0- 6 7.5-8.5 [employer]. Diabetes Care 33(S1), May 2009. Estimated Average Ezskisa963 MG/DL GC + Chlamydia By Amplified Ijtvsjqyj96Mvs4468 12:03PMBayron Mccarty Test NameResultFlagReference N.GONORRHEA,AMPLIFIEDNEG ATIVENegative SOURCE: Urine Chlamydia Trach, AmplifiedNEGATIVENegativ e Hepatitis B Surface Hbkgwqm85Iuy7178 12:03PMBayron Mccarty Test NameResultFlagReference Hep.B Surface AgNONREACTIVESee Below Reference Range: NONREACTIVE Biotin interference may cause falsely decreased results. Patients taking a Biotin dose of up to 5 mg/day should refrain from taking Biotin for 24 hours before sample collection. Providers may contact their local laboratory for further information. Hepatitis C Antibody Pevq32Nyy6951 12:03PMBayron Mccarty Test NameResultFlagReference Hepatitis C-AntibodyNONREACTIVESee Below Reference Range: NONREACTIVE Results from patients taking biotin supplements or receiving high-dose biotin therapy should be interpreted with caution due to possible interference with this test. Providers may contact their local laboratory for further information. HIV 1/2 ANTIGEN/ANTIBODY SCREEN WITH REFLEX TO [id number] 12:03PMBayron Mccarty Test NameResultFlagReference HIV 1/2 AG/AB SCREENNONREACTIVESee Below Reference Range: NONREACTIVE HIV Ag/Ab screen is performed using the Siemens niviollica HIV Ag/Ab Combo assay which detects the presence of HIV p24 antigen as well as antibodies to HIV-1 (Group M and O) and HIV-2. SYPHILIS SCREENING WITH HVNAQU28Hgd4916 12:03PMBayron Mccarty Test NameResultFlagReference SYPHILIS TOTAL ANTIBODYNONREACTIVESee Below SOURCE: Reference Range: NONREACTIVE No significant level of Treponema pallidum antibody detected. Repeat testing in 2 to 4 weeks may be considered if early infection or incubating syphilis infection is suspected. Diagnoses/Problems Irregular menses (626.4) (N92.6) Morbid obesity (278.01) (E66.01) Orders HCG, Beta Quantitative; Status:Active; Requested for:59Yix1455; Perform:Lab Services - Lab To Draw (Blood Test); Due:13Jul2020;Ordered; For:Irregular menses; Ordered By:Bayron Mccarty; Progesterone, Serum; Status:Active; Requested for:10Juf3808; Perform:Lab Services - Lab To Draw (Blood [...] MD [facility] [phone] [place] [phone] [place] Appointment Duration:. 25 minutes; greater than half [...] MD [facility] [phone] [place] [phone] [place] 1 Amended By: Bayron Mccarty; Apr 14 2020 4:50 PM ESTSignatures Electronically signed by : Bayron Mccarty MD; Apr 14 2020 4:51PM EST (Author) [facility] SENIOR CUSTOMER SERVICE REPRESENTATIVE - Procedure Visiton 1 05-28-2019 SENIOR CUSTOMER SERVICE REPRESENTATIVE - Procedure Visit Chief Complaint pt presents [...] 1 CAPSULE EVERY 12 HOURS DAILY; Therapy: 20Fza6260 to (Evaluate:97Sbp8529) Requested for: 81Kjb6617; Last Rx:[id number] Ordered Rx By: Bayron Mccarty; Dispense: 5 Days ; #:10 Capsule; Refill: 0;For: Fertility testing; KEVIN = N; Verified Transmission to [place] [address]; Msg to Pharmacy: start medication the night before her procedure; Last Updated By: SystemVysr; 01/24/2020 12:08:27 PM Vitamin D 25 MCG (1000 UT) Oral Tablet; Therapy: 82Gcm0071 to Recorded Dispense: 0 Days ; #: [...] Mar 28 2020 4:10PM EST (Author) Normal [facility] SENIOR CUSTOMER SERVICE REPRESENTATIVE - Office Visiton 11-0 SENIOR CUSTOMER SERVICE REPRESENTATIVE - Office Visit Chief Complaint The patient [...] is considering single parent procreation. Her usual Barrel Rib Matting Machine Operator with whom she would plan to follow with for care in a future is Dr. Ng in [place]. Active Problems Female infertility (628.9) (N97.9) Fertility [...] 1 CAPSULE EVERY 12 HOURS DAILY; Therapy: [id number] to (Evaluate:[id number]) Requested for: [id number]; Last Rx:[id number] Ordered Rx By: Bayron Mccarty; Dispense: 5 Days ; #:10 Capsule; Refill: 0; For: Fertility testing; KEVIN = N; Verified Transmission to [place] [address]; Msg to Pharmacy: start medication the night before her procedure; Last Updated By: Cindi Lizarraga; 01/24/2020 12:08:27 PM Vitamin D 25 MCG (1000 UT) Oral Tablet; Therapy: 13Mar2020 to Recorded Dispense: 0 Days ; #: Sufficient Tablet; Refill: 0; KEVIN = N; Record; Last Updated By: AnadilipRohithie; 2020 1:15:24 PM Vitals Vital Signs Recorded: 13Mar2020 01:08PM Heart Rate96 Xmzsuwwq187 Jnfqkbvwa27 Height5 ft 6 in Wgoguw030 lb BMI Pcqfyprypi49.91 BSA Calculated2.39 Tobacco Useb) No Fall Screeninga) No falls within the last year [id number] Gravida1 Para0 Pain Scale0 Diagnoses/Problems Morbid obesity [...] consultation of which greater than 50% was emrp-bq-bquo counseling. Weight loss prior to conception is [...] HORMONEon ANTI MULLERIAN HORMONE 6.36 ng/mL [facility] Comment on above: Result Comment: For assays employing antibodies, the possibility exists for interference by heterophile antibodies in the samples.1 1.Oswald Brunner Interferences in Immunoassays - still a threat. Clin. Chem. 2000; 46: 6063-0343. This test was developed and its performance characteristics determined by [employer]. It has not been cleared or approved by the Food and Drug Administration. Reference Range: Females 26 - 30y: 1.03 - 11.10 Median 4.20 AMH concentrations of >= 1.06 ng/mL is correlated with a better response to ovarian stimulation, produced more retrievable oocytes and higher odds of live according to Carey et al. Fertility and Sterility. 2010: 94:5470-2116. The current AMH test method correlates with [...] ovarian tumor. Performed By: #### A #### [facility] [place], [place] [id number] 17-HYDROXYPROGESTERONEon 17-HYDROXYPROGESTERON E 33 ng/dL [facility] Comment on above: Result Comment: Unable [...] Endocrinol Metab. 1991;73:674-686; J Clin Endocrinol Metab. 1989;69;9731-5707; J Clin Endocrinol Metab. 1994;78:226-270. Pediatr Res 1988;23:525-529. Med[employer]Plus (accessed 10/25/13). This test was developed and its analytical performance characteristics have been determined by [employer] [place], [place]. It has not been cleared or approved by the U.S. Food and Drug Administration. This assay has been validated pursuant to the CLIA regulations and is used for clinical purposes. Performed By: #### 1 7OHP #### [employer] [facility] [address] [place], [place] TESTOST,FREE AND TOTALon TESTOSTERONE TOT.LC/MS/MS 63 ng/dL High 2-45 [facility] Comment on above: Result Comment: For additional information, please refer to http://education.MadeiraCloud/faq/ [email or web address] (This link is being provided for informational/ educational purposes only.) This test was developed and its analytical performance characteristics have been determined by [employer] [place], [place]. It has not been cleared or approved by the U.S. Food and Drug Administration. This assay has been validated pursuant to the CLIA regulations and is used for clinical purposes. Performed By: #### [facility] #### [facility] [address] [place] [address] TESTOSTERONE,FREE 8.8 pg/mL High 0.1-6.4 [facility] Comment on above: Result Comment: This test was developed and its analytical performance characteristics have been determined by [employer] [place], [place]. It has not been cleared or approved by the U.S. Food and Drug Administration. This assay has been validated pursuant to the CLIA regulations and is used for clinical purposes. Performed By: #### [facility] #### [facility] [address] [place] [address] DHEA SULFATEon 01-25-2020 DHEA SULFATE 214 ug/dL Normal 65 - 395 [facility] Comment on above: Result Comment: MATU [...] for further information. Performed By: #### [facility] #### [facility] [address] [place] [address] GC + CHLAMYDIA BY AMPLIFIED DETECTIONon 01-25-2020 CHLAMYDIA TRACH.,AMPLIFIED Negative Normal Negative [facility] Comment on above: Performed By: #### [facility] #### [facility] [address] [place] [address] N.GONORRHEA,AMPLIFIED Negative Normal Negative [facility] Comment on above: Performed By: #### [facility] #### [facility] [address] [place] [address] HEPATITIS B SURFACE AGon HEP.B SURFACE AG NONREACTIVE Normal NONREACTIVE [facility] Comment on above: Result Comment: Biot in interference may cause falsely decreased results. Patients taking a Biotin dose of up to 5 mg/day should refrain from taking Biotin for 24 hours before sample collection. Providers may contact their local laboratory for further information. Performed By: #### G [facility] #### [facility] [address] [place] [address] HEPATITIS C ABon 01-25-2020 HEPATITIS C AB NONREACTIVE Normal NONREACTIVE [facility] Comment on above: Result Comment: Resu lts from patients taking biotin supplements or receiving high-dose biotin therapy should be interpreted with caution due to possible interference with this test. Providers may contact their local laboratory for further information. Performed By: #### H [facility] #### [facility] [address] [place] [address] HIV ANTIGEN/ANTIBODY SCREENo n 01-25-2020 HIV AG/AB SCREEN NONREACTIVE Normal NONREACTIVE [facility] Comment on above: Result Comment: HIV Ag/Ab screen is performed using the Siemens niviollEcometrica HIV Ag/Ab Combo assay which detects the presence of HIV p24 antigen as well as antibodies to HIV-1 (Group M and O) and HIV-2. Performed By: #### G CCHA #### [facility] [address] [place] [address] RUBELLA IGG ABon 01-25-2020 RUBELLA IGG AB Positive Normal [facility] Comment on above: Result Comment: INTE RPRETATIVE [...] assays. Performed By: #### R UBIG #### [facility] [address] [place] [address] SYPHILIS SCREENING WITH REFL EXon 01-25-2020 SYPHILIS TOTAL AB NONREACTIVE Normal NONREACTIVE [facility] Comment on above: Result Comment: No s ignificant level of Treponema pallidum antibody detected. Repeat testing in 2 to 4 weeks may be considered if early infection or incubating syphilis infection is suspected. Performed By: #### S YPHR #### [facility] [address] [place] [address] TSH WITH REFLEX TO FREE T4 I F ABNORMALon 01-25-2020 TSH Qn 2.17 m[IU]/L Normal 0.44 - 3.98 [facility] Comment on above: Result Comment: TSH testing is performed using different testing methodology at [facility] than at other [facility]. Direct result comparisons should only be made within the same method. Performed By: #### [facility] #### [facility] [address] [place] [address] VARICELLA ZOSTER IGG ABon VARICELLA ZOSTER IGG AB Negative Normal NEGATIVE [facility] Comment on above: Result Comment: INTE [...] assays. Performed By: #### V AR #### [facility] [address] [place] [address] VITAMIN D, 25-HYDROXYon 01-10 VITAMIN D, 25-HYDROXY 17 ng/mL Abnormal [facility] Comment on above: Result Comment: . DEFICIENCY: < 20 NG/ML INSUFFICIENCY: 20-29 NG/ML SUFFICIENCY: 30-100 NG/ML THIS ASSAY ACCURATELY QUANTIFIES THE SUM OF VITAMIN D3, 25-HYDROXY AND VIT D2,25-HYDROXY. { Performed By: #### [facility] #### [facility] [address] [place] [address] GC + CHLAMYDIA BY AMPLIFIED DETECTIONon 01-24-2020 Lab Specimen Source Urine Normal [facility] Comment on above: Performed By: #### [facility] #### [facility] [address] [place] [address] HEMOGLOBIN A1Con 01-24-2020 HbA1c (Bld) [Mass fraction] 5.5 % [facility] Comment on above: Result Comment: Diag nosis of Diabetes-Adults Non-Diabetic: < or = 5.6% Increased risk for developing diabetes: 5.7-6.4% Diagnostic of diabetes: > or = 6.5% . Monitoring of Diabetes Age (y) Therapeutic Goal (%) Adults: >18 <7.0 Pediatrics: 13-18 <7.5 7-12 <8.0 0- 6 7.5-8.5 [employer]. Diabetes Care 33(S1), May 2009. Performed By: #### H BA1E #### [facility] [address] [place] [address] HbA1c (Bld) [Mass fraction] 111 MG/DL [facility] Comment on above: Performed By: #### H BA1E #### [facility] [address] [place] [address] SENIOR CUSTOMER SERVICE REPRESENTATIVE - Office Visiton 01-10 SENIOR CUSTOMER SERVICE REPRESENTATIVE - Office Visit Chief Complaint 29 year [...] is currently incarcerated, and will be in nursing home until 2026. She is interested in pursuing fertility testing today, and pending these results would potentially be interested in single-parent procreation with donor sperm. She is not currently sexually active. She has a history of ectopic in 2011, which was treated with laparoscopic left salpingectomy in [facility]. 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 pain SUPERVISOR RESEARCH KENNEL HISTORY: STDs: Yes, remote history of gonorrhea [...] PM Vitals Vital Signs Recorded: 24Jan2020 11:13AM Bhhrozyirdv21.7 F Heart Svks094 Xopnktjt815 Zgrthhrvq02 Height5 ft 6 in Bwskjz372 lb BMI Sumycbklyo40.13 BSA Calculated2.35 Tobacco Useb) No Fall Screeninga) No falls within the last year [id number] Gravida1 Para0 Pain Scale0 Diagnoses/Problems Female infertility (628.9) (N97.9) Fertility testing (V26.21) (Z31.41) Morbid obesity (278.01) (E66.01) Irregular menses (626.4) (N92.6) Screening for STD (sexually transmitted disease) (V74.5) (Z11.3) *Orders Anti Mullerian Hormone; Status:Active; Requested for:24Jan2020; Perform:Lab Services - Lab To Draw (Non-Blood Test); Due:18Hnh7241;Ordered; For:Female infertility, Fertility testing, Irregular menses, Morbid obesity; Ordered By:Bayron Mccarty; Start: Doxycycline Monohydrate 100 MG Oral Capsule; TAKE 1 CAPSULE EVERY 12 HOURS DAILY Rx By: Bayron Mccarty; Dispense: 5 Days ; #:10 Capsule; Refill: 0; For: Fertility testing; KEVIN = N; Verified Transmission to [place] [address]; Msg to Pharmacy: start medication the night before her procedure; Last Updated By: Cindi Lizarraga; 01/24/2020 12:08:27 PM Maternal Medicine Referral Evaluation and Treatment Evaluate AND Treat Status: Hold For - Scheduling Requested for: 03Mxi1373 Ordered; For: Morbid obesity; Ordered By: Bayron Mccarty Performed: Due: 73Aby5261 17-Hydroxyprogesterone, Serum; Status:Active; Requested for:03Cxr1813; Perform:Lab Services - Lab To Draw (Blood Test); Due:32Jut0244;Ordered; For:Screening for STD (sexually transmitted disease); Ordered By:Bayron Mccarty; DHEA Sulfate, Serum; Status:Active; Requested for:83Fef9529; Perform:Lab Services - Lab To Draw (Blood Test); Due:18Cnx7747;Ordered; For:Screening for STD (sexually transmitted disease); Ordered By:Bayron Mccarty; Hemoglobin A1C; Status:Active; Requested for:65Oaw0741; Perform:Lab Services - Lab To Draw (Blood Test); Due:76Oox9148;Ordered; For:Screening for STD (sexually transmitted disease); Ordered By:Bayron Mccarty; Rubella IgG Antibody; Status:Active; Requested for:36Ano9927; Perform:Lab Services - Lab To Draw (Blood Test); Due:10Xzl9684;Ordered; For:Screening for STD (sexually transmitted disease); Ordered By:Bayron Mccarty; Testosterone Free + Total; Status:Active; Requested for:32Peu6522; Perform:Lab Services - Lab To Draw (Blood Test); Due:81Ifv0657;Ordered; For:Screening for STD (sexually transmitted disease); Ordered By:Bayron Mccarty; TSH WITH REFLEX TO FREE T4 IF ABNORMAL; Status:Active; Requested for:04Loh1699; Perform:Lab Services - Lab To Draw (Blood Test); Due:55Soj4083;Ordered; For:Screening for STD (sexually transmitted disease); Ordered By:Bayron Mccarty; Ultrasound Pelvis Transvaginal; Status:Hold For - Scheduling; Requested for:88Kdq9597; Perform:[facility] Radiology Services Imaging; Order Comments:will call with menses to schedule; Due:89Aln0156;Ordered; For:Screening for STD (sexually transmitted disease); Ordered By:Bayron Mccarty; Radiologist to Determine Optimal Study : Y What are the patient's signs and symptoms? : fert testing Varicella Zoster IgG Antibody; Status:Active; Requested for:41Rkt8969; Perform:Lab Services - Lab To Draw (Blood Test); Due:24Cia3345;Ordered; For:Screening for STD (sexually transmitted disease); Ordered By:Bayron Mccarty; Vitamin D 25-Hydroxy; Status:Active; Requested for:01Klx8533; Perform:Lab Services - Lab To Draw (Blood Test); Due:22Zme8878;Ordered; For:Screening for STD (sexually transmitted disease); Ordered By:Bayron Mccarty; Xray Hysterosalpingogram; Status:Hold For - Scheduling; Requested for:09Sol6579; Perform:[facility] Radiology Services Imaging; Order Comments:will call with menses to schedule. schedule between CD5-12. start doxycycline night prior to procedure; Due:04Ooj1875;Ordered; For:Screening for STD (sexually transmitted disease); Ordered By:Bayron Mccarty; Radiologist to Determine Optimal Study : Y What are the patient's signs and symptoms? : fert testing Tobacco Use Screening; Status:Complete; Done: 19Bqa7990 Perform:Not Applicable;Ordered; For:SocHx: Never a smoker; Ordered [...] sent to her home pharmacy ([facility] in [place]) [ ] Day 3 FSH, LH, E2 [x] AMH [x] TSH [x] Prolactin [x] Testosterone, DHEAS [x] HgA1C [x] STD screening [x ] Preconceptual screening including Rubella,Varicella, Blood type [ ] Genetic Screen with [employer] - will consider [ ] Take vitamins [x] Return to see TRAVOGRAPH OPERATOR after workup complete to discuss management [...] REFL EXon 01-24-2020 Lab Specimen Source Normal [facility] Comment on above: Performed By: #### S YPHR #### [facility] [address] [place] [address] Performed By: #### V ARZG #### [facility] [address] [place] [address] Performed By: #### R UBIG #### [facility] [address] [place] [address] Vital Signs Date Time Vital Sign Value Performing Clinician Facility 04-06-2024 14:10-0500 Body mass index (BMI) [Ratio] 48.58 kg/m2 Mena CARRILLO Work Phone: [facility] 04-06-2024 14:10-0500 Body weight 136.53 kg Mena CARRILLO Work Phone: [facility] 04-06-2024 14:10-0500 Diastolic blood pressure 80 mm[Hg] Mnea CARRILLO Work Phone: [facility] 04-06-2024 14:10-0500 Systolic blood pressure 128 mm[Hg] Mena CARRILLO Work Phone: [facility] 03-22-2024 14:14-0500 Body mass index (BMI) [Ratio] 48.92 kg/m2 Tacho Shon DO Work Phone: [facility] 03-22-2024 14:14-0500 Body weight 137.49 kg Tacho Shon DO Work Phone: [facility] 03-22-2024 14:14-0500 Diastolic blood pressure 84 mm[Hg] Tacho Shon DO Work Phone: [facility] 03-22-2024 14:14-0500 Systolic blood pressure 126 mm[Hg] Tacho Shon DO Work Phone: [facility] 03-05-2024 23:11-0400 Diastolic blood pressure 78 mm[Hg] Services [facility] Work Phone: [facility] 03-05-2024 23:11-0400 Heart rate 90 /min [facility] Work Phone: [facility] 03-05-2024 23:11-0400 Respiratory rate 18 /min [facility] Work Phone: [facility] 03-05-2024 23:11-0400 SaO2% (BldA) [Mass fraction] 96 % [facility] Work Phone: [facility] 03-05-2024 23:11-0400 Systolic blood pressure 136 mm[Hg] Services [facility] Work Phone: [facility] 03-05-2024 19:59-0400 Body temperature 98.1 [degF] Services [facility] Work Phone: [facility] 03-05-2024 19:58-0400 Body height 167.64 cm [facility] Work Phone: [facility] 03-05-2024 19:58-0400 Body weight 136.55 kg Services [facility] Work Phone: [facility] 02-26-2024 19:50-0400 Body height 167.64 cm Services [facility] Work Phone: [facility] 02-26-2024 19:50-0400 Body temperature 97.8 [degF] [facility] Work Phone: [facility] 02-26-2024 19:50-0400 Body weight 136.98 kg Services [facility] Work Phone: [facility] 02-26-2024 19:50-0400 Diastolic blood pressure 91 mm[Hg] [facility] Work Phone: [facility] 02-26-2024 19:50-0400 Heart rate 103 /min [facility] Work Phone: [facility] 02-26-2024 19:50-0400 Respiratory rate 16 /min [facility] Work Phone: [facility] 02-26-2024 19:50-0400 SaO2% (BldA) [Mass fraction] 96 % [facility] Work Phone: [facility] 02-26-2024 19:50-0400 Systolic blood pressure 144 mm[Hg] Services [facility] Work Phone: [facility] 02-23-2024 14:01-0400 Body mass index (BMI) [Ratio] 48.76 kg/m2 Mena Ann PA Work Phone: [facility] 02-23-2024 14:01-0400 Body weight 137.04 kg Mena Ann PA Work Phone: [facility] 02-23-2024 14:01-0400 Diastolic blood pressure 82 mm[Hg] Mena Ann PA Work Phone: [facility] 02-23-2024 14:01-0400 Systolic blood pressure 128 mm[Hg] Mena Ann PA Work Phone: [facility] 10-06-2023 17:42-0400 Body height 167.64 cm Services [facility] Work Phone: [facility] 10-06-2023 17:42-0400 Body temperature 98.3 [degF] Services [facility] Work Phone: [facility] 10-06-2023 17:42-0400 Body weight 134 kg Services [email or web address] Work Phone: [facility] 10-06-2023 17:42-0400 Diastolic blood pressure 94 mm[Hg] Services [facility] Work Phone: [facility] 10-06-2023 17:42-0400 Heart rate 98 /min [facility] Work Phone: [facility] 10-06-2023 17:42-0400 Respiratory rate 18 /min Services [email or web address] Work Phone: [facility] 10-06-2023 17:42-0400 SaO2% (BldA) [Mass fraction] 100 % Services [email or web address] Work Phone: [facility] 10-06-2023 17:42-0400 Systolic blood pressure 142 mm[Hg] Services [email or web address] Work Phone: [facility] 09-17-2023 14:22-0400 Body height 167.[address] [facility] 09-17-2023 14:22-0400 Body mass index (BMI) [Ratio] 47.61 kg/m2 Anna Ortiz RD [facility] 09-17-2023 14:22-0400 Body weight 133.[address] [facility] 08-20-2023 13:05-0400 Body height 167.6 cm Tonya Senior [employer] CLAIMS ADJUSTER.PAVING PLANT OPERATOR Work Phone: [facility] 08-20-2023 13:05-0400 Body weight 133.81 kg Tonya Parrish [employer] CLAIMS ADJUSTER.PAVING PLANT OPERATOR Work Phone: [facility] 08-07-2023 15:23-0400 Body height 168.91 cm Services [email or web address] Work Phone: [facility] 08-07-2023 15:23-0400 Body mass index (BMI) [Ratio] 46.9 kg/m2 Services [email or web address] Work Phone: [facility] 08-07-2023 15:23-0400 Body weight 133.89 kg Services [email or web address] Work Phone: [facility] 08-07-2023 15:23-0400 Diastolic blood pressure 83 mm[Hg] Services [email or web address] Work Phone: [facility] 08-07-2023 15:23-0400 Heart rate 101 /min Services [email or web address] Work Phone: [facility] 08-07-2023 15:23-0400 Respiratory rate 18 /min Services [email or web address] Work Phone: [facility] 08-07-2023 15:23-0400 SaO2% (BldA) [Mass fraction] 98 % Services [email or web address] Work Phone: [facility] 08-07-2023 15:23-0400 Systolic blood pressure 120 mm[Hg] Services [facility] [employer] Phone: [facility] 06-13-2023 11:00-0500 Body height 168.28 cm Nicholas Michaels Other [facility] 06-13-2023 11:00-0500 Body mass index (BMI) [Ratio] 48.53 kg/m2 Nicholas Michaels Other [employer] Other 06-13-2023 11:00-0500 Body weight 137.44 kg Nicholas Michaels Other [employer] Other 06-13-2023 11:00-0500 Body weight 137.43 kg [facility] Phone: [facility] 06-13-2023 11:00-0500 Diastolic blood pressure 82 mm[Hg] Nicholas Michaels Other [facility] 06-13-2023 11:00-0500 Respiratory rate 18 /min Nicholas Michaels Other [employer] Other 06-13-2023 11:00-0500 SaO2% (BldA) [Mass fraction] 97 % Nicholas Michaels Other [employer] Other 06-13-2023 11:00-0500 Systolic blood pressure 120 mm[Hg] Nicholas Michaels Other [facility] 01-08-2023 10:45-0400 Body height 168.28 cm Nicholas Michaels Other [employer] Other 01-08-2023 10:45-0400 Body mass index (BMI) [Ratio] 52.89 kg/m2 Nicholas Michaels Other [employer] Other 01-08-2023 10:45-0400 Body weight 149.78 kg Nicholas Michaels Other [employer] Other 01-08-2023 10:45-0400 Diastolic blood pressure 81 mm[Hg] Nicholas Michaels Other [employer] Other 01-08-2023 10:45-0400 Respiratory rate 18 /min Nicholas Michaels Other [employer] Other 01-08-2023 10:45-0400 SaO2% (BldA) [Mass fraction] 97 % Nicholas [employer] Other [employer] Other 01-08-2023 10:45-0400 Systolic blood pressure 122 mm[Hg] Nicholas [employer] Other [employer] Other 06-18-2022 16:57-0500 Body height 167.64 cm Services [email or web address] Work Phone: [facility] 06-18-2022 16:57-0500 Body weight 157 kg Services [email or web address] Work Phone: [facility] 06-18-2022 16:56-0500 Body temperature 98.3 [degF] Services [email or web address] Work Phone: [facility] 06-18-2022 16:56-0500 Diastolic blood pressure 67 mm[Hg] Services [email or web address] Work Phone: [facility] 06-18-2022 16:56-0500 Heart rate 95 /min Services [employer] [facility] Work Phone: [facility] 06-18-2022 16:56-0500 Respiratory rate 20 /min Services [email or web address] Work Phone: [facility] 06-18-2022 16:56-0500 SaO2% (BldA) [Mass fraction] 97 % Services [email or web address] Work Phone: [facility] 06-18-2022 16:56-0500 Systolic blood pressure 158 mm[Hg] Services [facility] Work Phone: [facility] 12-02-2021 20:26-0400 Body height 167.64 cm [facility] Work Phone: [facility] 12-02-2021 20:26-0400 Body temperature 98.2 [degF] [facility] Work Phone: [facility] 12-02-2021 20:26-0400 Body weight 144.24 kg Services [employer] [facility] Work Phone: [facility] 12-02-2021 20:26-0400 Diastolic blood pressure 89 mm[Hg] Services [email or web address] Work Phone: [facility] 12-02-2021 20:26-0400 Heart rate 104 /min Services [email or web address] Work Phone: [facility] 12-02-2021 20:26-0400 Respiratory rate 20 /min Services [email or web address] Work Phone: [facility] 12-02-2021 20:26-0400 SaO2% (BldA) [Mass fraction] 96 % Services [email or web address] Work Phone: [facility] 12-02-2021 20:26-0400 Systolic blood pressure 156 mm[Hg] Services [email or web address] Work Phone: [facility] 06-19-2020 11:10-0500 BMI (Body Mass Index) 46.65 kg/m2 Bayron Mccarty XK-NSIBR-Zuozvx 310 [facility] Work Phone: 06-19-2020 11:10-0500 Body weight 131.09 kg Bayron Mccarty KM-ECVUV-Diqeuq 310 [facility] Work Phone: 06-19-2020 11:10-0500 BSA (Body Surface Area) 2.34 m2 Bayron Mccarty CN-VGOUU-Qazhpz 310 [facility] Work Phone: 06-19-2020 11:10-0500 Height 167.64 cm Bayron Mccarty QM-DLPSY-Yjlege 310 IV[facility] Work Phone: 06-19-2020 11:10-0500 1 1 Bayron Mccarty VD-PGGPE-Gvauvj 310 IVF Work Phone: Comment on above: 06-19-2020 11:10-0500 0 1 Bayron Mccarty TL-OJWHX-Zpxbcf 310 IVF Work Phone: Comment on above: [...] 03-30-2024 End: 03-30-2024 ambulatory TACHO R SHON [facility] Start: 03-22-2024 End: 03-22-2024 Bamboo flowsheet Tacho Shon DO Work Phone: [facility] Start: 03-22-2024 End: 03-22-2024 Bamboo flowsheet Tacho Sohn DO Work Phone: [facility] Start: 03-22-2024 End: 03-22-2024 Office outpatient visit 15 minutes Tacho Valienteo DO Work Phone: [facility] Comment on above: Third trimester preg rosette; 29 weeks gestation of Start: 03-22-2024 End: 03-22-2024 ambulatory TACHO SHON Not Available Start: 03-19-2024 End: 03-19-2024 Clinisync Result Encounter Mena CARRILLO Work Phone: [facility] External Department Unsolicited Start: 03-19-2024 End: 03-19-2024 Clinisync Result Encounter Mena CARRILLO Work Phone: [facility] External Department Unsolicited Start: 03-05-2024 End: 03-05-2024 Emergency department patient visit Services [facility] Work Phone: [facility] Work Phone: Start: 03-01-2024 End: 03-01-2024 Orders Only Veda Hayes RN Maternal- Medic ine at [facility] Comment on above: Encounter for follow -up ultrasound of anatomy (Primary Dx); History of pre-eclampsia in prior , currently ; History of delivery, currently ; Obesity affecting in second trimester, unspecified obesity type Start: 02-26-2024 End: 02-26-2024 Emergency department patient visit Services [facility] Work Phone: [facility] Work Phone: Start: 02-23-2024 End: [...] Start: 02-17-2024 End: 02-17-2024 ambulatory TACHO R [facility] Start: 01-26-2024 End: 01-26-2024 Clinisync Result Encounter Tacho Shon DO Work Phone: [facility] External Department Unsolicited Start: 01-26-2024 End: 01-26-2024 Clinisync Result Encounter Tacho Shon DO Work Phone: [facility] External [facility] Unsolicited Start: 01-20-2024 End: 01-20-2024 ambulatory TACHO SHON Not Available Start: 01-19-2024 End: 01-19-2024 ambulatory TACHO [facility] Start: 12-23-2023 End: 12-23-2023 ambulatory MENA ANN Not Available Start: 11-25-2023 End: 11-25-2023 ambulatory TACHO SHON Not Available Start: 10-30-2023 End: 10-30-2023 ambulatory TACHO SHON Not Available Start: 10-09-2023 End: 10-09-2023 ambulatory LATONIA GREENE Facility:[facility] Start: 10-06-2023 End: 10-06-2023 Emergency department patient visit Services [facility] Work Phone: [facility] Work Phone: Start: 09-17-2023 End: 09-17-2023 ambulatory ANNA ORTIZ Facility:[facility] Start: 09-17-2023 End: 09-17-2023 Nutrition therapy Anna Ortiz RD Nutrition Therapy Comment on above: Obesity, Class III, BMI 40-49.9 (morbid obesity) (HCC) (Primary Dx); Dietary counseling Start: 09-17-2023 End: 09-17-2023 Telemedicine consultation with patient Anna Ortiz RD Nutrition Therapy Start: 09-15-2023 Admission to [facility] Tonya Senior APRN.PAVING PLANT OPERATOR Work Phone: General Surgery Comment on above: Results Start: 09-15-2023 E-mail encounter dena m caregiver Tonya Senior AUTO CLAIMS ADJUSTER.PAVING PLANT OPERATOR Work Phone: General Surgery Start: 09-11-2023 Telephone encounter Tonya Senior APRN.PAVING PLANT OPERATOR Work Phone: General Surgery Comment on above: Results Start: 09-08-2023 End: 09-08-2023 ambulatory TONYA SENIOR Facility:[facility] Start: 09-05-2023 End: 09-05-2023 ambulatory TONYA SENIOR Facility:[facility] Start: 09-01-2023 End: 09-02-2023 ambulatory LATONIA GREENE Facility:[facility] Start: 09-01-2023 End: 09-01-2023 Admission to same day surgery center Latonia Greene PhD Work Phone: General Surgery BMI PSYL Comment on above: NO SHOW (Primary Dx) Start: 09-01-2023 End: 09-01-2023 Telemedicine consultation with patient Latonia Greene PhD Work Phone: General Surgery BMI PSYL Start: 08-20-2023 Admission to same da y surgery center Tonya Senior AUTO CLAIMS ADJUSTER.PAVING PLANT OPERATOR Work Phone: General Surgery Comment on above: Welcome to Bariatric Surgery Start: 08-20-2023 E-mail encounter dena m caregiver Tonya Senior APRN.PAVING PLANT OPERATOR Work Phone: [place] [id number] Start: 08-20-2023 End: 08-20-2023 ambulatory Tonya Senior AUTO CLAIMS ADJUSTER.PAVING PLANT OPERATOR Work Phone: General Surgery Comment on above: Body mass index (BMI ) of 50-59.9 in adult (HCC) (Primary Dx); Angel's thyroiditis; High blood cholesterol Start: 08-20-2023 End: 08-20-2023 Telemedicine consultation with patient Tonya Senior AUTO CLAIMS ADJUSTER.PAVING PLANT OPERATOR [facility] Start: 08-07-2023 End: 08-07-2023 ambulatory [facility] Work Phone: [facility] Work Phone: Start: 08-07-2023 End: 08-07-2023 Patient encounter procedure Services [facility] Work Phone: [facility] Work Phone: Start: 06-13-2023 Follow-up encounter Nicholas Michaels [facility] Start: 06-13-2023 Registered Recurring Services [facility] Work Phone: [facility] Work Phone: Start: 06-13-2023 End: 06-13-2023 ambulatory Nicholas Michaels [facility] [employer] Other Start: 06-13-2023 End: 06-13-2023 Patient encounter procedure Services [facility] [employer] Work Phone: [facility] Start: 01-08-2023 End: 01-08-2023 ambulatory Nicholas Michaels Other [facility] [employer] Other Start: 01-08-2023 Nutrition therapy Nicholas Michaels [facility] Start: 06-18-2022 End: 06-18-2022 Emergency department patient visit Services [facility] [employer] Work Phone: [facility] Work Phone: Start: 06-03-2022 End: 06-03-[address] TACHO MENENDEZ Facility: Start: 12-02-2021 End: 12-02-2021 Emergency department patient visit Services [facility] Work Phone: [facility] Start: 07-08-2020 Patient encounter [...] Start: 08-01-2017 End: 08-02-2017 Ambulatory Agustin Patton Facility:[id number] Start: 07-14-2017 End: 07-15-2017 Ambulatory Agustin Carrasquillo Facility:[id number] Procedures Date Procedure Procedure Detail Performing Clinician Start: 04-06-2024 Urnls dip stick/tabl et rgnt non-auto w/o micrscp Mena CARRILLO Work Phone: Start: 03-22-2024 Urnls dip stick/tabl et rgnt non-auto w/o micrscp Tacho Shontianna FAYE Work Phone: Start: 03-19-2024 ALL CBC WITH AUTO DIFF Mena CARRILLO Work Phone: Start: 03-05-2024 Plain chest X-ray Servi malina [employer] [facility] Work Phone: Start: 03-05-2024 Respiratory Panel (PCR) Services [facility] Work Phone: Start: 03-05-2024 Streptococcus pyogen es antigen assay Services [facility] Work Phone: Start: 02-26-2024 Streptococcus pyogen es antigen assay Services [facility] Work Phone: Start: 02-23-2024 Urnls dip stick/tabl et rgnt non-auto w/o micrscp Mena CARRILLO Work Phone: Start: 01-26-2024 ALL THYROID STIM HORMONE Tacho Menendez DO Work Phone: Start: 12-23-2023 Microscopic observat ion [Identifier] in Cervix by Cyto stain Tacho Menendez DO Work Phone: Start: 07-06-2020 Antibody screen Comment on above: Performed By: #### T +S #### [facility] [address] [place] [address] Start: 07-05-2020 IO Ultrasound, limit ed pelvic, follicle monitoring Bayron Mccarty Start: 06-26-2020 IO Ultrasound, limit ed pelvic, follicle monitoring Bayron Mccarty Start: 05-10-2020 Assay of progesterone J oseph Bibiana Adenoid excision Bayron wallace Cholecystectomy Bayron Chen ey SARS Antigen (LFIA) Services [facility] Work Phone: Plan of Treatment Date Care Activity Detail Author Start: 12-22-2028 Screening for malign ant neoplasm of cervix [facility] Start: 12-22-2026 Screening for malign ant neoplasm of cervix [facility] [place] Start: 03-01-2025 End: 03-01-2025 US MFM with or without consult US MFM with or without consult Imaging Routine Encounter for follow-up ultrasound of anatomy History of pre-eclampsia in prior , currently History of delivery, currently Obesity affecting in second trimester, unspecified obesity type Expected: 03/01/2025 (Approximate), Expires: 03/01/2025 [employer] Work Phone: Comment on above: Expected: 03/01/2025 (Approximate), Expires: 03/01/2025 Start: 01-18-2025 Adult [facility] Start: 01-18-2025 [facility] Start: 04-22-2024 End: 04-22-2024 Patient encounter procedure [...] Routine [facility] [address] [place] [address] Mena Ann PA [address] [place], [place] [id number] [facility] Start: 03-30-2024 End: 03-30-2024 Patient encounter procedure 03/30/2024 2:45 PM EST Appointment [facility] - Ultrasound [address] [place] [phone] [facility] - Ultrasound Start: 03-22-2024 End: 03-22-2024 Patient encounter procedure 03/22/2024 1:50 PM EST Routine [facility] [address] [place] [address] Tacho Menendez, DO [address] [place], [place] [id number] [facility] Start: 03-22-2024 End: 03-22-2024 Professional / ancillary services management 03/22/2024 1:00 PM EST Ancillary Procedure [facility] [address] [place] [address] [facility] Start: 03-16-2024 End: 03-16-2024 Patient encounter procedure 03/16/2024 1:30 PM EST Routine [facility] [address] [place] [address] Tacho Menendez, DO [address] [place] [address] [facility] Start: 02-23-2024 End: 02-22-2025 CBC panel - Blood by Automated count CBC Lab Routine Diabetes mellitus screening Expected: 02/23/2024 (Approximate), Expires: 02/22/2025 [facility] Work Phone: Comment on above: Expected: 02/23/2024 (Approximate), Expires: 02/22/2025 Start: 02-23-2024 End: 02-22-2025 Measurement of glucose 1 hour after glucose challenge for glucose tolerance test Glucose tolerance, 1 hour Lab Routine Diabetes mellitus screening Expected: 02/23/2024 (Approximate), Expires: 02/22/2025 [facility] Comment on above: Expected: 02/23/2024 (Approximate), Expires: 02/22/2025 Start: 02-23-2024 End: 02-22-2025 US for US OB SCAN FOR GROWTH Imaging Routine size inconsistent with dates H/O premature delivery Expected: 02/23/2024 (Approximate), Expires: 02/22/2025 [facility] Comment on above: Expected: 02/23/2024 (Approximate), Expires: 02/22/2025 Start: 02-23-2024 End: 02-23-2024 Patient encounter procedure 02/23/2024 1:40 PM EDT Routine [facility] [address] [place] [id number] Mena Ann PA [address] [place] [address] Arrived [facility] Comment on above: Arrived Start: 02-18-2024 End: 02-18-2024 Patient encounter procedure 02/18/2024 2:30 PM EDT Routine [facility] [address] [place] [address] Mena Ann PA [address] [place], [place] [id number] [facility] Start: 01-11-2024 COVID-19 Vaccine () COVID-19 Vaccine () [facility] Start: 01-11-2024 Influenza vaccination [facility] Start: 09-17-2023 End: 09-17-2023 Nutrition therapy 09/17/2023 2:30 PM EDT [facility] [address] [address] Anna Ortiz, RD [address] [place] [address] Red/Davis/0 Diet/[place] Nutrition Therapy Comment on above: Red/Davis/0 Diet/ [place] Start: 09-12-2023 End: 09-12-2023 Admission to same day surgery center 09/12/2023 3:30 PM EDT [facility] General Surgery [address] [place] [address] Joo Bradley MD [address] [place], [place] [id number] Red/Kirk/0 Diet/[place] [facility] Comment on above: Red/Kirk/0 Diet/Anth em Start: 09-05-2023 End: 09-05-2023 ambulatory 09/05/2023 11:45 AM EDT Results Only [facility] [address] [place] [address] [place] [address] [facility] Start: 08-20-2023 End: 11-19-2023 25-hydroxyvitamin D3 [Mass/volume] in Serum or Plasma VITAMIN D 25 HYDROXY Lab Routine Body mass index (BMI) of 50-59.9 in adult (HCC) Expected: 08/20/2023, Expires: 11/19/2023 [facility] Work Phone: Comment on above: Expected: 08/20/2023 , Expires: 11/19/2023 Start: 08-20-2023 End: 11-19-2023 CBC W Auto Differential panel - Blood COMPLETE BLOOD COUNT AND DIFFERENTIAL Lab Routine Body mass index (BMI) of 50-59.9 in adult (HCC) Expected: 08/20/2023, Expires: 11/19/2023 [facility] Work Phone: Comment on above: Expected: 08/20/2023 , Expires: 11/19/2023 Start: 08-20-2023 End: 11-19-2023 Cobalamin (Vitamin B12) [Mass/volume] in Serum or Plasma VITAMIN B12 Lab Routine Body mass index (BMI) of 50-59.9 in adult ([facility]) Expected: 08/20/2023, Expires: 11/19/2023 [facility] Work Phone: Comment on above: Expected: 08/20/2023 , Expires: 11/19/2023 Start: 08-20-2023 End: 11-19-2023 Comprehensive metabolic 2000 panel - Serum or Plasma COMPREHENSIVE METABOLIC PANEL Lab Routine High blood cholesterol Body mass index (BMI) of 50-59.9 in adult ([facility]) Expected: 08/20/2023, Expires: 11/19/2023 [facility] Work Phone: Comment on above: Expected: 08/20/2023 , Expires: 11/19/2023 Start: 08-20-2023 End: 11-19-2023 Ferritin [Mass/volume] in Serum or Plasma FERRITIN Lab Routine Body mass index (BMI) of 50-59.9 in adult ([facility]) Expected: 08/20/2023, Expires: 11/19/2023 [facility] Work Phone: Comment on above: Expected: 08/20/2023 , Expires: 11/19/2023 Start: 08-20-2023 End: 11-19-2023 Folate [Mass/volume] in Serum or Plasma FOLATE, SERUM Lab Routine Body mass index (BMI) of 50-59.9 in adult ([facility]) Expected: 08/20/2023, Expires: 11/19/2023 [facility] Work Phone: Comment on above: Expected: 08/20/2023 , Expires: 11/19/2023 Start: 08-20-2023 End: 11-19-2023 Helicobacter pylori IgG Ab [Presence] in Serum or Plasma by Immunoassay H PYLORI IGG AB Lab Routine Body mass index (BMI) of 50-59.9 in adult ([facility]) Expected: 08/20/2023, Expires: 11/19/2023 [facility] Work Phone: Comment on above: Expected: 08/20/2023 , Expires: 11/19/2023 Start: 08-20-2023 End: 11-19-2023 Hemoglobin A1c in Blood HEMOGLOBIN A1C Lab Routine Body mass index (BMI) of 50-59.9 in adult ([facility]) Expected: 08/20/2023, Expires: 11/19/2023 [facility] Work Phone: Comment on above: Expected: 08/20/2023 , Expires: 11/19/2023 Start: 08-20-2023 End: 11-19-2023 Iron and Iron binding capacity panel - Serum or Plasma IRON AND TIBC Lab Routine Body mass index (BMI) of 50-59.9 in adult ([facility]) Expected: 08/20/2023, Expires: 11/19/2023 [facility] Work Phone: Comment on above: Expected: 08/20/2023 , Expires: 11/19/2023 Start: 08-20-2023 End: 11-19-2023 Lipid 1996 panel - Serum or Plasma LIPID PANEL BASIC Lab Routine High blood cholesterol Body mass index (BMI) of 50-59.9 in adult ([facility]) Expected: 08/20/2023, Expires: 11/19/2023 [facility] Work Phone: Comment on above: Expected: 08/20/2023 , Expires: 11/19/2023 Start: 08-20-2023 End: 11-19-2023 Natriuretic peptide.B prohormone N-Terminal [Mass/volume] in Serum or Plasma NT PRO BNP Lab Routine Body mass index (BMI) of 50-59.9 in adult ([facility]) Expected: 08/20/2023, Expires: 11/19/2023 [facility] Work Phone: Comment on above: Expected: 08/20/2023 , Expires: 11/19/2023 Start: 08-20-2023 End: 11-19-2023 NICOTINE & METAB, UR NICOTINE & METAB, UR Lab Routine Body mass index (BMI) of 50-59.9 in adult ([facility]) Expected: 08/20/2023, Expires: 11/19/2023 [facility] Work Phone: Comment on above: Expected: 08/20/2023 , Expires: 11/19/2023 Start: 08-20-2023 End: 11-19-2023 Thyrotropin [Units/volume] in Serum or Plasma THYROID STIMULATING HORMONE Lab Routine Angel's thyroiditis Body mass index (BMI) of 50-59.9 in adult ([facility]) Expected: 08/20/2023, Expires: 11/19/2023 [facility] Work Phone: Comment on above: Expected: 08/20/2023 , Expires: 11/19/2023 Start: 08-20-2023 End: 11-19-2023 TOXICOLOGY SCREEN, ROUTINE URINE TOXICOLOGY SCREEN, ROUTINE URINE Lab Routine Body mass index (BMI) of 50-59.9 in adult ([facility]) Expected: 08/20/2023, Expires: 11/19/2023 [facility] Work Phone: Comment on above: Expected: 08/20/2023 , Expires: 11/19/2023 Start: 08-20-2023 End: 11-19-2023 VITAMIN B1 (THIAMINE), WHOLE BLOOD VITAMIN B1 (THIAMINE), WHOLE BLOOD Lab Routine Body mass index (BMI) of 50-59.9 in adult ([facility]) Expected: 08/20/2023, Expires: 11/19/2023 [facility] Work Phone: Comment on above: Expected: 08/20/2023 , Expires: 11/19/2023 Start: 05-12-2023 Behavioral Health Screening Behavioral Health Screening [facility] Start: 01-10-2023 Covid-19 Vaccine () Covid-19 Vaccine () [facility] Start: 12-02-2021 Plain chest X-ray XR chest [facility]V [facility] Start: 12-02-2021 XR Chest Single view [facility] Work Phone: Start: 2021 Screening for malign ant neoplasm of cervix HPV Testing [facility] Start: 2012 Screening for malign ant neoplasm of cervix Pap Testing [facility] Start: 2010 Hepatitis B Vaccine (1 of 3 - 19+ 3-dose series) Hepatitis B Vaccine (1 of 3 - 19+ 3-dose series) [facility] Start: 2009 Adult BMI Follow Up Plan Adult BMI Follow Up Plan [facility] Start: 2009 HIV screening HIV Screening [facility] Start: 2003 Depression Screening Depression Scre ening [facility] Start: 2002 DTaP,Tdap and Td Vaccines (6 - Tdap) DTaP,Tdap and Td Vaccines (6 - Tdap) [facility] Start: 2002 Urine microalbumin profile DTaP,Tdap,Td Vaccine (6 - Tdap) [facility] End: 08-19-2024 ECG COMPLETE ECG COMPLETE ECG Routine Body mass index (BMI) of 50-59.9 in adult ([facility]) 1 Occurrences starting 08/20/2023 until 08/19/2024 [facility] Work Phone: Comment on above: 1 Occurrences starti ng 08/20/2023 until 08/19/2024 Patient Education [facility] Work Phone: Patient referral [facility] Work Phone: End: 09-18-2024 US Abdomen RUQ US ABD RIGHT UPPER QUADRANT Radiology Routine Body mass index (BMI) of 50-59.9 in adult ([facility]) 1 Occurrences starting 08/20/2023 until 09/18/2024 [facility] Work Phone: Comment on above: 1 Occurrences starti ng 08/20/2023 until 09/18/2024 End: 09-18-2024 XR Chest PA and Lateral XR CHEST 2V FRONTAL/LAT Radiology Routine Body mass index (BMI) of 50-59.9 in adult ([facility]) 1 Occurrences starting 08/20/2023 until 09/18/2024 [facility] Work Phone: Comment on above: 1 Occurrences starti ng 08/20/2023 until 09/18/2024 [id number] 310 [facility] Work Phone: [facility] NEGATED: Highlighted row has been ruled out! Planned Goals not documented [id number] 310 [facility] Work Phone: Immunizations Immunization Date Immunization Notes Care Provider Sonia miramontes 03-11-2023 influenza virus vacc ine, unspecified formulation Tacho Menendez DO Work Phone: [facility] Payers Date Payer Category Payer Self-pay [id number] 2022 Medicaid [id number] 2022 Medicaid [id number] 1991 Unknown [id number] [id number] 3 1991 Unknown [id number] 2.16.840.1.275284.3.579.2.12 86 1991 Unknown [id number] 2.16.840.1.178142.3.579.2.12 86 1991 Unknown [id number] 2.16.840.1.671756.3.579.2.12 86 1991 Unknown [id number] 2.16.840.1.757320.3.579.2.12 86 1991 Unknown [id number] 2.16.840.1.672314.3.579.2.12 59 1991 Unknown [id number] 2.16.840.1.791103.3.579.2.12 59 1991 Unknown [id number] 2.16.840.1.343965.3.579.2.12 59 1991 Unknown [id number] 2.16.840.1.870731.3.579.2.12 59 1991 Unknown [id number] 2.16.840.1.107732.3.579.2.12 59 1991 Unknown [id number] 2.16.840.1.233441.3.579.2.12 59 1991 Unknown [id number] 2.16.840.1.003669.3.579.2.12 59 1991 Unknown [id number] 2.16.840.1.967105.3.579.2.12 59 1959 Medicaid [id number] Private Health Insurance [facility] [id number] Unknown [id number] Unknown Regular Insurance [id number] Unknown [employer] [id number] Unknown Regular Auto/Medical [id number] Unknown [id number] [id number] 1 Unknown [id number] 2.16.840.1.607429.3.579.2.53 1 Unknown [id number] 2.16.840.1.575548.3.579.2.53 1 Unknown [id number] [id number] 1 Social History Date Type Detail Facility Start: 12-02-2021 End: 05-17-2023 Tobacco smoking status NYIS Never smoked tobacco (finding) [facility] Start: 1990 Sex Assigned At [facility] Start: 05-17-2023 End: 08-20-2023 Sex Assigned At [employer] Other Start: 05-17-2023 End: 08-20-2023 Tobacco use and exposure Smokeless tobacco non-user [facility] Work Phone: Start: 08-20-2023 End: 02-23-2024 Alcohol intake Current drinker of alcohol (finding) [facility] Start: 05-17-2023 End: 08-20-2023 History of Social function [facility] National Score (1-100), lower number is lower risk 86 [facility] Start: 08-20-2023 Alcohol Comment occ [facility] Start: 1990 Sex Assigned At Not on file C [facility] Start: 08-26-2023 Gender identity Identifies as female gender (finding) [facility] Start: 08-26-2023 Sexual orientation Heterosexual (fin ding) [facility] Start: 09-14-2023 [facility] How often to you hav e [...] Start: 01-19-2024 Alcoholic beverage intake Ex-drinker (finding) [facility] Start: 12-13-2014 Sex Female (finding) [facility] NEGATED: Highlighted row - - [id number] 310 IVF Work Phone: Functional Status Date Assessment Result Facility NEGATED: Highlighted row Functional performance Functional status health issues are not documented Disease [id number] 310 IV[facility] Work Phone: Mental Status Date Assessment Result Facility NEGATED: Highlighted row Cognitive function [Interpretation] Cognitive status health issues are not documented Disease [id number] 310 IV[facility] Work Phone: Clinical Notes 01-08-2023 to 04-06-2024 GERARDO Vazquez - 04/06/2024 1:30 PM Craig Mcbride LPN - 03/22/2024 1:50 PM GERARDO Hunter - 02/23/2024 1:40 PM EDTTelephone Encounter - Meme Castrejon - 09/22/2023 9:36 AM EDTPatient Instructions Note Date & Type Note Facility 04-06-2024 History of Presen t illness Narrative Reason for Appointment: Patient ID: Jaleesa rArieta is a 34 y.o. female who presents [...] 06/2019 OTHER SURGICAL HISTORY 2020 IUI 07/10/20 [facility] SALPINGECTOMY Left 2011 ectopic REVIEW OF [...] of: GERARDO Vazquez documented in this encounter [facility] 03-22-2024 History of Presen t illness Narrative [...] 06/2019 OTHER SURGICAL HISTORY 2020 IUI 07/10/20 [facility] SALPINGECTOMY Left 2011 ectopic REVIEW OF [...] nursing note reviewed. Exam conducted with a discharge door operator present. Vitals: Estimated body mass index [...] Tacho Menendez DO documented in this encounter [facility] 02-23-2024 History of Presen t illness Narrative [...] 06/2019 OTHER SURGICAL HISTORY 2020 IUI 07/10/20 [facility] SALPINGECTOMY Left 2011 ectopic REVIEW OF [...] nursing note reviewed. Exam conducted with a discharge door operator present. Vitals: Estimated body mass index [...] of: GERARDO Vazquez documented in this encounter [facility] 10-09-2023 Note HNO ID: [id number] Author: LATONIA GREENE, PhD Service: ? Author Type: Psychologist Type: Progress Notes Filed: 10/17/2023 11:09 Note Text: [facility] BARIATRIC SURGERY BEHAVIORAL HEALTH EVALUATION BMI Surgical Pathway Visit type: Psychology Visit DATE OF SERVICE: October 09, 2023 TIME OF SERVICE: 1:00 PM - 2:00 PM COST CENTER: [facility] CPT CODE: - [id number] Virtual Psych Diagnostic Eval BILLING CODE: ENDO PSYL MAIN Jerel DATE OF FIRST SERVICE THIS CYCLE: October 09, 2023 SESSION #: 1 I have communicated my name and active licensure. The patient's identity and physical location (see below) were verified at the time of this visit. Either the patient or their legal sales representative womens health has been informed of the risks and benefits of -- and alternatives to -- treatment through a remote evaluation and consents to proceed with the evaluation remotely. This evaluation is NOT intended for forensic, disability or child custody purposes. The patient e-signed a copy of the consent form via [employer] and the [facility] insurance benefits, fees for service, emergency [...] in case of emergency and/or disconnection. [address] [place] [address] (Change address in [place], was mother) Alternate Town Clerk Bibi Arrieta (Mother) [phone] (Home Phone) Patient identified the following plan to follow in case of emergency: Go to emergency room (nearest is [facility]) or call 911. IDENTIFYING INFORMATION: Ms. Jaleesa [...] pt has l (more content not included)... [facility] 09-22-2023 Telephone encounter Note Can not schedule patient as there is already a patient scheduled for that day and time. Please advise. Thanks Meme Castrejon [facility] 09-22-2023 Telephone encounter Note ----- Message from Anna Ortiz RD sent at 09/17/2023 3:17 PM EDT ----- Regarding: virtual follow up Please schedule for a virtual up 6/7 at 1. The patient is aware, no call needed. Thank you! Anna [facility] 09-22-2023 Miscellaneous Notes Can not schedule [...] levels, no answer, left vm. Tonya Senior APRN.PAVING PLANT OPERATOR documented in this encounter [facility] 09-17-[address] - [...] full-liquid diet. Examples: Slim Fast Advanced Nutrition [place] Breakfast Essentials Light Start Drink mixed with [...] Bariatric Multivitamin and Calcium Citrate (total of 7005-0205 mg/day) * take calcium citrate separately from Multivitamin with iron at least 2 hours apart and 4 hours apart from additional calcium www.[email or web address].[email or web address] - Bariatric Choice: 4 Complete Multivitamins (chewables) [...] grams per day documented in this encounter [facility] 09-17-2023 Note HNO ID: [id number] Author: ANNA ORTIZ RD Service: ? Author Type: Registered Dietitian Type: Progress Notes Filed: 09/17/2023 15:19 Note Text: [facility] Nutrition Therapy: Virtual Consult - Initial Assessment I have communicated my name and active licensure. The patient?s identity and physical location were verified at the time of this visit. Either the patient or their legal sales representative womens health has been informed of the risks and [...] Your Guide to Surgery by next session [email or web address] -/[email or web address]/ [email or web address]?[email or web address] 2. Do not skip [...] Examples: ? Slim Fast Advanced Nutrition ? [place] Breakfast Essentials ?Light Start? Drink mixed with [...] AM, 2 in the PM) www.bariatricfusion.com - Applyful Health: 1 Bariatric Multivitamin and Calcium Citrate (total of 4994-6311 mg/day) * take calcium citrate separately from Multivitamin with iron at least 2 hours apart and 4 hours apart from additional calcium www.Anjuke.HourlyNerd - Bariatric Choice: 4 Complete Multivitamins (chewables) per day Www.bariatricchoice.com - Bariatric Advantage: 2 Multivitamins and 3 Calcium Citrate Chewables per day * take calcium citrate separately from Multivitamin with iron at least 2 hours apart and 4 hours apart from additional calcium Www.bariatricadvantage.HourlyNerd Start practicing eating slowly, chewing each bite [...] and using Phen (more content not included)... [facility] 09-17-2023 History of Presen t illness Narrative [facility] Nutrition Therapy: Virtual Consult - Initial Assessment I have communicated my name and active licensure. The patient s identity and physical location were verified at the time of this visit. Either the patient or their legal sales representative womens health has been informed of the risks and [...] Your Guide to Surgery by next session [email or web address] -/[email or web address]/files/[email or web address]/[email or web address]/ [email or web address] [email or web address]?la=en 2. Do not skip [...] full-liquid diet. Examples: Slim Fast Advanced Nutrition [place] Breakfast Essentials Light Start Drink mixed with [...] Bariatric Multivitamin and Calcium Citrate (total of 4766-6757 mg/day) * take calcium citrate separately from Multivitamin with iron at least 2 hours apart and 4 hours apart from additional calcium www.aiHitareRuxter.HourlyNerd - Bariatric Choice: 4 Complete Multivitamins (chewables) per day Www.bariatricchoice.com - Bariatric Advantage: 2 Multivitamins and 3 Calcium Citrate Chewables per day * take calcium citrate separately from Multivitamin with iron at least 2 hours apart and 4 hours apart from additional calcium Www.bariatricadvantage.HourlyNerd Start practicing eating slowly, chewing each bite [...] suggested by 180 Initial weight: 295 lbs. Buckner body weight is 155 lbs. Excess body weight is 140 lbs. Goal weight pre-op is 281 lbs. Protein needs are estimated at 85gm (1.2 - protein/kg IBW) Patient meets the National Institutes of Health guidelines for weight loss surgery and has [employer] Insurance therefore is required to complete 0 [...] TIME: 2:25 PM documented in this encounter [facility] 09-11-2023 Telephone encounter Note Attempted to call pt, re: hypothyroid and low vitamin d levels, no answer, left vm. Tonya Senior APRN.CNP [facility] 09-01-2023 Note HNO ID: [id number] Author: LATONIA GREENE, PhD Service: ? Author Type: Psychologist Type: Progress Notes Filed: 09/01/2023 13:22 Note Text: [facility] Progress Note 09/01/2023 Billing code: Jerel Patient did not attend, cancel, or reschedule this appointment. Provider left HIPAA compliant voicemail and MyChart message with contact information to reschedule. Latonia Greene, PhD Clinical Psychologist [facility] 09-01-2023 History of Presen t illness Narrative [facility] Progress Note 09/01/2023 Billing code: Jerel Patient did not attend, cancel, or reschedule this appointment. Provider left HIPAA compliant voicemail and MyChart message with contact information to reschedule. Latonia Greene, PhD Clinical Psychologist documented in this encounter [facility] 08-20-2023 Note HNO ID: [id number] Author: TONYA SENIOR APRN.PAVING PLANT OPERATOR Service: ? Author Type: Nurse Practitioner Type: Progress Notes Filed: 08/20/2023 16:21 Note Text: have communicated my name and active licensure. The patient's identity and physical location were verified at the time of this visit. Either the patient or their legal sales representative womens health has been informed of the risks and benefits of -- and alternatives to -- treatment through a remote evaluation and consents to proceed with the evaluation remotely. BMI MEDICAL CONSULT I have communicated my name and active licensure. The patient's identity and physical location were verified at the time of this visit. Either the patient or their legal sales representative womens health has been informed of the risks and [...] Exercise: active lifestyle with toddler, works in [employer] at [employer] Functional Capacity: -Walk 4 blocks on level [...] HEMOGLOBIN A1C - (more content not included)... [facility] 08-20-2023 History of Presen t illness Narrative Images from the original note were not included. have communicated my name and active licensure. The patient's identity and physical location were verified at the time of this visit. Either the patient or their legal sales representative womens health has been informed of the risks and benefits of -- and alternatives to -- treatment through a remote evaluation and consents to proceed with the evaluation remotely. BMI MEDICAL CONSULT I have communicated my name and active licensure. The patient's identity and physical location were verified at the time of this visit. Either the patient or their legal sales representative womens health has been informed of the risks and [...] PANEL - LIPID PANEL BASIC Tonya Senior APRN.PAVING PLANT OPERATOR -- Recommend that she should not become [...] Obesity Medicine Visit documented in this encounter [facility] 06-13-2023 Evaluation note Encounter Date Diagnosis [...] 8 weeks -Handed patient self referral to [facility] bariatric surgery program -Mksbd-dw-sdki A1c December 2022 5.4%-Follow up in clinic in 8 weeksThis note was created with voice recognition software. Please excuse errors in bilingual account manager. Jun, Dietary surveillance and counseling (ICD-10 - [...] for a goal of 5% weight reduction. [facility] 08-30-2023 Evaluation note* Encounter Date Diagnosis [...] on in the past and denies side yibypcj-Pxduz-qz-care A1c today 5.4%-Follow up in clinic in 4 weeksThis note was created with voice recognition software. Please excuse errors in bilingual account manager. Dec, Dietary surveillance and counseling (ICD-10 - [...] premade protein drink for breakfast, by plain Khmer yogurt and flavor yourself with cinnamon or [...] with the patient, and documenting clinical information. [facility] Other Chiec complaint+Reason for visit Narrative* Chief Complaint Obesity Reason for Visit Exercise counseling Severe obesity (BMI >= 40) [facility] Work Phone: Chijc complaint+Reason for visit Narrative* Chief Complaint Pos test, Cramping, Vaginal bleeding Reason for Visit Exercise counseling Severe obesity (BMI >= 40) [facility] Work Phone: Evaluation noteNo assessment information available [facility] Work Phone: evaluation note* Diagnosis Onset Date Resolution Status Exercise counseling acute Severe obesity (BMI >= 40) delilah kevin [facility] Work Phone: Evhbvation note* Diagnosis Body mass index (BMI) of 50-59.9 in adult (HCC)- Primary Body Mass Index 50.0-59.9, adult Angel's thyroiditis Chronic lymphocytic thyroiditis High blood cholesterol Pure hypercholesterolemia documented in this encounter [facility] note* Diagnosis NO SHOW- Primary [facility] Diagnosis Obesity, Class III, BMI 40-49.9 (morbid obesity) (HCC)- Primary Morbid obesity Dietary counseling Dietary surveillance and counseling [facility] Diagnosis Vitamin D deficiency- Primary Unspecified vitamin D deficiency [facility]* Diagnosis 25 weeks gestation of Second trimester state, incidental Diabetes mellitus screening Screening for diabetes mellitus size inconsistent with dates H/O premature delivery [facility]* Diagnosis Encounter for follow-up ultrasound of anatomy- Primary History of pre-eclampsia in prior , currently with other poor obstetric history History of delivery, currently with history of pre-term labor Obesity affecting in second trimester, unspecified obesity type [facility] Diagnosis Third trimester state, incidental 29 weeks gestation of [facility]* Diagnosis Third trimester state, incidental 31 weeks gestation of H/O premature delivery [facility] Narrative - Reported* Type Description Date Surgical History adnoidectomy Surgical History gall bladder Surgical History L Fallopian tube removed Hospitalization History See Above [facility] Other Hospital Discharge instructions Additional Instructions You may take mbnb-bjj-fzljsbb cough and cold medication as needed You may take hbkh-omw-opllzpt Tylenol and/or ibuprofen as needed Increase oral fluids Follow-up with family doctor as needed Return to the ER for any acute difficulty breathing high fever vomiting or any other [facility] Work Phone: Hospital Discharge instructions Additional Instructions Nothing into vagina until seen by SENIOR CUSTOMER SERVICE REPRESENTATIVE May take Tylenol for discomfort Increase oral fluids Follow-up with SENIOR CUSTOMER SERVICE REPRESENTATIVE Return to the ER for heavy bleeding greater than a pad an hour feeling dizzy lightheaded or any other [facility] Work Phone: Hospital Discharge instructions Additional Instructions Follow-up with your OB in the next week.[facility] Work Phone: InstructionsNot on filedocumented in this encounter [facility] Diagnostic Procedure Only (Routine) - Pending Review Specialty Diagnoses / Procedures Referred By Contac t Referred To Contact [facility] Diagnoses Body mass index (BMI) of 50-59.9 in adult (HCC) Procedures US ABD RIGHT UPPER QUADRANT US ABDOMINAL REAL TIME W/IMAGE LIMITED Tonya Senior APRN.CNP [id number] [id number] [id number] Referral ID Status Reason Start Date Expiration Date Visits Requested Visits Authorized [id number] Pending Review Auto-Generat ed Referral 08/20/2023 09/18/2024 1 1 * Outpatient Procedure (Routine) - Pending Review Specialty Diagnoses / Procedures Referred By Contac t Referred To [facility] Diagnoses Body mass index (BMI) of 50-59.9 in adult (HCC) Procedures ECG COMPLETE ECG ROUTINE ECG W/LEAST 12 LDS W/I&R Tonya Senior APRN.CNP [address] [id number] [facility] [address] [place] [id number] Referral ID Status Reason Start Date Expiration Date Visits Requested Visits Authorized [id number] Pending Review Auto-Generat ed Referral 08/20/2023 08/19/2024 1 1 [facility] Summary Purpose Family History No Family [...] section and content) DATE CREATED AUTHOR 10/31/2017 [facility] DATE CREATED AUTHOR AUTHOR'S ORGANIZ ATION 04/23/2020 [facility] DATE CREATED AUTHOR AUTHOR'S ORGANIZ ATION 08/08/2020 [facility] DATE CREATED AUTHOR AUTHOR'S ORGANIZ ATION 08/22/2020 [facility] DATE CREATED AUTHOR AUTHOR'S ORGANIZ ATION 06/11/2022 [facility] DATE CREATED AUTHOR AUTHOR'S ORGANIZ ATION 09/06/20[facility] DATE CREATED AUTHOR AUTHOR'S ORGANIZ ATION 10/03/2023 [facility] DATE CREATED AUTHOR AUTHOR'S ORGANIZ ATION 10/18/2023 [facility] DATE CREATED AUTHOR AUTHOR'S ORGANIZ ATION 01/20/2024 [facility] DATE CREATED AUTHOR AUTHOR'S ORGANIZ ATION 03/19/2024 [facility] DATE CREATED AUTHOR AUTHOR'S ORGANIZ ATION 04/02/2024 [facility] DATE CREATED AUTHOR AUTHOR'S ORGANIZ ATION 04/25/2024 [facility] d[facility] Specialists EPIC Care Teams (unrecognized sec tion and content) Team Status: Inactive Member Role Status Dates Services Family Health Primary Care Provider Active Ck To PA-C Emergency Provider Active Team Status: Active Member Role Status Dates Services Family Health Primary Care Provider Active Team Status: Inactive Member Role Status Dates Services Family Health Primary Care Provider Active Marychuy Kyle , [facility]- Emergency Provider Active Team Status: Inactive Member Role Status Dates Nicholas iMchaels DO Attending Provider Active St art: June 13, 2023 End: June 13, 2023 Team Status: Active Member Role Status Dates [facility] Primary Care Provider Active Start: June 13, 2023 Nicholas Michaels DO Attending Provider Active St art: June 13, 2023 Team Status: Inactive Member Role Status Dates [facility] Primary Care Provider Active Start: August 07, 2023 End: August 07, 2023 Nicholas Michaels DO Attending Provider Active St art: August 07, 2023 End: August 07, 2023 Team Status: Inactive Member Role Status Dates [facility] Primary Care Provider Active Start: October 06, 2023 End: October 06, [address] [facility] Emergency Provider Active Start: October 06, 2023 End: October 06, 2023 Team Status: Inactive Member Role Status Dates [facility] Primary Care Provider Active Start: February 26, 2024 End: February 26, 2024 Ck To PA-C Emergency Provider Active Start: February 26, 2024 End: February 26, 2024 Team Status: Inactive Member Role Status Dates [facility] Primary Care Provider Active Start: [...] or prosecute any alcohol or drug abuse patient.[facility] the event this information is protected by the Federal Confidentiality of Alcohol and Drug Abuse Patient Records regulations: The Federal rules restrict any use of the information to criminally investigate or prosecute any alcohol or drug abuse patient.[facility] HospitalIn the event this information is protected by the Federal Confidentiality of Alcohol and Drug Abuse Patient Records regulations: The Federal rules restrict any use of the information to criminally investigate or prosecute any alcohol or drug abuse patient.[facility] HospitalIn the event this information is protected by the Federal Confidentiality of Alcohol and Drug Abuse Patient Records regulations: The Federal rules restrict any use of the information to criminally investigate or prosecute any alcohol or drug abuse patient.[facility] HospitalIn the event this information is protected by the Federal Confidentiality of Alcohol and Drug Abuse Patient Records regulations: The Federal rules restrict any use of the information to criminally investigate or prosecute any alcohol or drug abuse patient.[facility] HospitalIn the event this information is protected by the Federal Confidentiality of Alcohol and Drug Abuse Patient Records regulations: The Federal rules restrict any use of the information to criminally investigate or prosecute any alcohol or drug abuse patient.[facility] FOR RECORDS PERTAINING TO PATIENTS WHO [...] BE BASED ON THE PRIMARY CLINICAL RECORDS. [facility]. provides no warranty or guarantee of the accuracy or completeness of information in this document.
--- NOTE | 2024-04-28 20:53 | PC.NURSE ---
Pt denies any pain or leaking of fluid.
[2024-04-28 20:58] VITALS: BP 125/75; PULSE 92
[2024-04-28 21:00] VITALS: BP 125/75; PULSE 92; TEMP 36.5
--- OUTSIDE RECORDS SUMMARY | 2024-04-29 11:50 | XMS_ITS | CCD ---
Author Organization [facility] Care Team Providers Care Associate Professor Of Archaeology Name Role Phone Agustin Patton Unavailable Unavailable Agustin Patton Unavailable Unavailable Bayron Mccarty Unavailable Unavailable Unavailable Unavailable Unavailable Unavailable Unavailable Unavailable [facility] Services Primary Care Provider DEMETRIUS To Emergency Provider DR TACHO MENENDEZ Attending Unavailable DR TACHO MENENDEZ Consulting Unavailable DR TACHO MENENDEZ Admitting Unavailable [facility] Primary Care Provider [phone] Anabella [facility] Mraychuy E Emergency Provider Nicholas Michaels Unavailable [facility] Services Primary Care Provider DO Nicholas Michaels Attending Provider [phone] Unavailable Primary Care Provider Unavailabl e Unavailable Primary Care Provider Unavailabl e LATONIA GREENE Attending Unavailable TONYA ESNIOR Attending Unavailable [facility] Primary Care Provider Anabella [facility] Marychuy E Emergency Provider LATONIA GREENE Referring Unavailable LATONIA GREENE Attending Unavailable ANNA ORTIZ Attending Unavailable TONYA SENIOR Referring Unavailable TONYA SENIOR Referring Unavailable TACHO MENENDEZ Referring Unavailable MAKEDA GROSS Attending Unavailable TACHO MENENDEZ Referring Unavailable Unavailable Primary Care Provider Unavailabl e [facility] Primary Care Provider DEMETRIUS To Emergency Provider [phone] Unavailable Primary Care Provider Unavailabl DO Devika Christie Emergency Provider Ck To Attending Unavailable Ck To Admitting Unavailable [facility] Primary Care Unavaila Marychuy Rey Attending Unavailable Marychuy Kyle Admitting Unavailable [facility] Primary Care Unavaila Nicholas Willams Attending Unavailable Nicholas Michaels Admitting Unavailable [facility] Primary Care Unavaila ble [facility] Primary Care Unavaila Devika Hillman Attending Unavailable Devika De La Garza Admitting Unavailable TACHO MENENDEZ Referring Unavailable JUDAH MENENDEZY R Referring Unavailable SHON, TACHO Attending Unavailable MARISSA, MENA Attending Unavailable SHON, TACHO Attending Unavailable MARISSA, MENA Attending Unavailable SHON, TACHO Attending Unavailable MARISSA, MENA Attending Unavailable TACHO MENENDEZ Attending Unavailable Medications Current Medications Medication Drug [...] mg/ml oral solution (2 sources) Phenothiazine, Uncompetitive W-lnkrnk-K-aspartate Receptor Antagonist, Sigma-1 Agonist Start: 02-26-2024 take [...] 7:27pm magnesium oxide 400 mg oral tablet (15 sources) Start: 10-30-2023 End: 10-29-2024 take 1 tablet by mouth once daily magnesium oxide (Mag-Ox) 400 MG tablet Indications: headache in first trimester Take 1 tablet (400 mg) by mouth Daily 30 tablet 11 10/30/2023 10/29/2024 Active [place] (No Known Home Meds) (3 sources) Start: 10-06-2023 [place] (No Kn own Home Meds) Active October 06, 2023 12:00am Start: 06-18-2022 [place] (No Kn own Home Meds) Active June [...] w/FA-DHA ( Gummies) 0.18-25 MG chewable tablet (14 sources) Start: 11-26-19 End: 07-17-20 25 MV & Min w/FA-DHA ( Gummies) 0.18-25 MG chewable tablet Indications: Missed menses Chew 25 mg Daily 30 tablet 11/26/2023 11/25/2024 Active Completed/Discontinued Medications Medication Drug [...] 02, 2021 12:00am June 18, 2022 5:53pm azithromycin 250 mg oral tablet (10 sources) Macrolide Antimicrobial Start: 4 End: 4 azithromycin (Zithromax Z-Jayson) 250 MG tablet Indications: URI, acute As directed 6 tablet 03/16/2024 04/22/2024 Discontinued brompheniramine maleate 0.4 mg/ml / dextromethorphan hydrobromide 2 mg/ml / pseudoephedrine hydrochloride 6 mg/ml oral solution (7 sources) alpha-Adrenergic Agonist, Uncompetitive H-hlifst-B-asparta te Receptor Antagonist, Sigma-1 Agonist Start: 2 [...] 26, 2019 12:58pm July 28, 2020 7:27pm Mlcptkfl-Bwz-Yk-Fa () 1 mg Tablet (7 sources) Start: 12-31-2020 End: 07-04-2021 take 1 tablet by mouth once Vmgnhkts-Vbd-Xu-Fa () 1 mg Tablet Discontinued TAB PO December 30, 2020 11:00pm July 04, 2021 9:48am Start: 12-31-2020 End: 07-04-2021 take 1 tablet by mouth once Fzzlbzoy-Hke-Iu-F a () 1 mg Tablet Discontinued TAB PO December 31, 2020 12:00am July 04, 2021 10:48am progesterone 100 mg oral capsule (9 sources) Progesterone Start: 07-28-2020 End: 12-31-2020 Progesterone Micronized Discontinued 100 MG VAGINAL Twice daily July 28, 2020 12:00am December 31, 2020 9:55am Start: 06-19-2020 take 1 capsule by mo [facility] twice daily Progesterone Micronized 100 MG Oral Capsule TAKE 1 CAPSULE Twice daily insert capsules vaginally Quantity: 30 Refills: 3 Bayron Mccarty MD Start : 19-Jun-2020 Active sennosides, alf 8.6 mg oral tablet (1 source) take 4 tablets by [facility] every twenty-four hours Senna 8.6 MG 4 [...] unspecified trimester] 02-23-2024 Episodic Other complications of (5 sources) History of pre-eclampsia; Translations: [Supervision of with other poor reproductive or obstetric history, unspecified trimester] Onset: 01-19-2024 03-01-2024 Episodic Other endocrine disorders (2 sources) Polycystic ovarian syndrome; Translations: [PCOS (polycystic ovarian syndrome)] Chronic Other female genital disorders (8 sources) H/O: premature delivery; Translations: [Personal history [...] 01-19-2024 Chronic Other and delivery including normal (15 sources) Intrauterine ; Translations: [Encounter for supervision [...] [31 weeks gestation of ] 04-06-2024 Episodic Residual codes; unclassified (2 sources) Gestation period, 33 weeks; Translations: [33 weeks gestation of ] 04-22-2024 Episodic Sprains and strains (7 sources) Low back strain; Translations: [Strain of muscle, fascia and tendon of lower back, initial encounter] 05-02-2017 Episodic Thyroid disorders (10 sources) Angel thyroiditis; 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 08-20-2023 Chronic Thyroid disorders (2 sources) Disorder of thyroid gland; Translations: [Disorder of thyroid, unspecified] 04-22-2024 Episodic Unclassified (1 source) NO SHOW 09-01-2023 Unclassified [...] Range Facility Urinalysis macro (dipstick) panel (U)on 04-22-2024 Bilirubin, UA Negative Negative - 4(70) +++ mg/dL [facility] Blood, UA Negative Negative - 50 Bradley/mcL [facility] Clarity, UA Clear [facility] Color, UA Yellow [facility] Glucose, UA Negative Negative - 1999(110) ++++ mg/dL [facility] Interpretation and review of laboratory results Abnormal [facility] Ketones, UA Negative Negative - 160(16) ++++ mg/dL [facility] Leukocytes, UA Trace Negative - 500+++ Gabby/mcL [facility] Nitrite, UA Negative Negative - Positive [facility] pH, UA 6 5 - 9 [facility] Protein, UA Positive Negative - 1999(20) ++++ mg/dL [facility] Comment on above: 30 Spec Grav, UA 1.025 1 - 1.03 [facility] Urobilinogen, UA 1.0 0.2 - 12 mg/dL [facility] Urinalysis macro (dipstick) panel (U)on 04-06-2024 Bilirubin, UA Negative Negative - 4(70) +++ mg/dL [facility] Blood, UA Negative Negative - 50 Bradley/mcL [facility] Clarity, UA Clear [facility] Color, UA Yellow [facility] Glucose, UA Negative Negative - 1999(110) ++++ mg/dL [facility] Interpretation and review of laboratory results Abnormal [facility] Ketones, UA Negative Negative - 160(16) ++++ mg/dL [facility] Leukocytes, UA Positive Negative - 500+++ Gabby/mcL [facility] Comment on above: small Nitrite, UA Negative Negative - Positive [facility] pH, UA 7 5 - 9 [facility] Protein, UA Negative Negative - 1999(20) ++++ mg/dL [facility] Spec Grav, UA 1.02 1 - 1.03 [facility] Urobilinogen, UA 0.2 0.2 - 12 mg/dL [facility] Urinalysis macro (dipstick) panel (U)on 03-22-2024 Bilirubin, UA Positive Negative - 4(70) +++ mg/dL [facility] Blood, UA Negative Negative - 50 Bradley/mcL [facility] Clarity, UA Clear [facility] Color, UA Yellow [facility] Glucose, UA Negative Negative - 1999(110) ++++ mg/dL [facility] Interpretation and review of laboratory results Normal [facility] Ketones, UA Positive Negative - 160(16) ++++ mg/dL [facility] Leukocytes, UA Positive Negative - 500+++ Gabby/mcL [facility] Nitrite, UA Negative Negative - Positive [facility] pH, UA 7 5 - 9 [facility] Protein, UA Positive Negative - 1999(20) ++++ mg/dL [facility] Spec Grav, UA 1.025 1 - 1.03 [facility] Urobilinogen, UA 1.0 0.2 - 12 mg/dL [facility] ALL CBC WITH AUTO DIFFon BASOPHILS ABSOLUTE AUTO 0 [facility] Basophils/100 WBC (Bld) 0.5 % 0.2 - 2.0 % [facility] Eosinophils/100 WBC (Bld) 2.4 % 0.9 - 7.0 % [facility] Erythrocyte distribution width (RBC) [Ratio] 13.2 % 11.0 - 15.0 % [facility] Hematocrit (Bld) [Volume fraction] 33.2 % Low 36.0 - 48.0 % [facility] Hemoglobin (Bld) [Mass/Vol] 11.1 g/dL Low 12.0 - 16.0 g/dL [facility] IMMATURE GRANULOCYTES ABS AUTO 0.02 [facility] Immature granulocytes/100 WBC (Bld) 0.3 % 0.0 - 0.5 % [facility] Interpretation and review of laboratory results Abnormal [facility] LYMPHOCYTES ABSOLUTE AUTO 2.1 [facility] Lymphocytes/100 WBC (Bld) 32.5 % 20.5 - 60.0 % [facility] MCH (RBC) [Entitic mass] 30.5 pg 26.7 - 34.0 pg [facility] MCHC (RBC) [Mass/Vol] 33.4 g/dL 29.9 - 35.2 g/dL [facility] MCV (RBC) [Entitic vol] 91.2 fL 81.0 - 99.0 fL [facility] MONOCYTES ABSOLUTE AUTO 0.3 [facility] Monocytes/100 WBC (Bld) 4.6 % 1.7 - 12.0 % [facility] NEUTROPHILS ABSOLUTE AUTO 3.9 [facility] Neutrophils/100 WBC (Bld) 59.7 % 43.0 - 75.0 % [facility] Platelet mean volume (Bld) [Entitic vol] 9.3 fL Low 9.5 - 13.5 fL [facility] TB EO # 0.2 [facility] TB PLT 342 [facility] TB RBC 3.64 Low [facility] WBC 6.6 [facility] BioFire Not Detectedon 03-05 BioFire Not Detected Not detected Normal Not Detecte T [facility] Comment on above: Result Comment: This is a duplicate RP2.1 COVID (PCR) result to be used for statistical tracking purpose only. PERFORMED BY: [place] [address] PATHOLOGIST ASSISTANT CHILD CARE TEACHER LION STANLEY M.D. Performed By: #### B IOFIRECOVNOTDE, QS, RESP PANEL UPP. #### [address] COVID-19 Detected/Not Detect edOrdered By: Devika De La Garza on 03-05-2024 SARS-CoV-2 (COVID-19) RNA YANET+non-probe Ql (Nph) Not detected Not Detecte [facility] Comment on above: This is a duplicate RP2.1 COVID (PCR) result to be used for statistical tracking purpose only. ECG 12 lead ECGon 03-05-2024 ECG 12 lead ECG [facility] [place] [address] [place] [address] Electrocardiograph Report Signed Patient: Jaleesa Arrieta MR#: [id number] [birth year] : 1990 Acct:[id number] Age/Sex: 33 / F ADM Date: 03/05/24 Loc: ER Room: Type: [facility] ER Attending Dr: Ordering Provider: [...] Confirmed by DEVIKA DE LA GARZA DO ([id number]) on 03/06/2024 1:44:25 AM Referred By: Electronically Signed By: DEVIKA DE LA GARZA DO Transcribed By: MUS Signed By Devika De La Garza DO 03/06 0144 Normal [facility] Quick Strepon 03-05-2024 Quick Strep Streptococcus pyogen es Ag [Presence] in Throat by Rapid immunoassay Negative for Group A Strep Antigen Note 1 NOTE 2 Results are those of a screening test. NOTE 3 If clinically indicated please order a culture. NOTE 4 NOTE 5 Reference range = Negative PERFORMED BY: [place] [address] PATHOLOGIST ASSISTANT CHILD CARE TEACHER LION STANLEY M.D. Normal [facility] Comment on above: Performed By: #### B IOFIRECOVNOTDE, QS, RESP PANEL UPP. #### [address] Respiratory (Upper) Panel, P CRon 03-05-2024 [...] A H3 Blank Space ------ PERFORMED BY: [facility] [address] [place] [address] PATHOLOGIST ASSISTANT CHILD CARE TEACHER LION STANLEY M.D. Normal [facility] Comment on above: Performed By: #### B IOFIRECOVNOTDE, QS, RESP PANEL UPP. #### [facility] [address] Respiratory pathogens DNA an d RNA panel - Nasopharynx by YANET with non-probe detectionOrdered By: Devika De La Garza on 03-05-2024 Respiratory pathogens DNA and RNA panel YANET+non-probe (Nph) [facility] Streptococcus pyogenes antig en detectionOrdered By: Devika De La Garza on 03-05-2024 S. pyogenes Ag Ql (Unsp spec) [facility] XR chest 1V portableon 03-05 XR chest 1V portable [facility] [place] [address] [place] [address] XRay Report Signed Patient: Jaleesa Arrieta MR#: [id number] [birth year] : 1990 Acct:[id number] Age/Sex: 33 / F ADM Date: 03/05/24 Loc: ER Room: Type: [facility] ER Attending Dr: Copies to: Devika De La Garza DO Ordering Provider: Devika D De La Garza, DO Date of Service: 03/05/24 XR/XR chest [...] Priscilla Cunningham M.D.03/05/2024 9:34 PM Dictation Location: [place] [address] Transcribed By: LIDA 03/05/242133 Dictated By: Priscilla Cunningham MD 03/05/242130 Signed By: 03/05/242133 Normal [facility] Quick Strepon 02-26-2024 Quick Strep Streptococcus pyogen es Ag [Presence] in Throat by Rapid immunoassay Negative for Group A Strep Antigen Note 1 NOTE 2 Results are those of a screening test. NOTE 3 If clinically indicated please order a culture. NOTE 4 NOTE 5 Reference range = Negative PERFORMED BY: [place] [address] PATHOLOGIST ASSISTANT CHILD CARE TEACHER LION STANLEY M.D. Normal [facility] Comment on above: Performed By: #### Q S #### [address] Streptococcus pyogenes antig en detectionOrdered By: Ck To on 02-26-2024 S. pyogenes Ag Ql (Unsp spec) [facility] Urinalysis macro (dipstick) panel (U)on 02-23-2024 Bilirubin, UA Negative Negative - 4(70) +++ mg/dL [facility] Blood, UA Negative Negative - 50 Bradley/mcL [facility] Clarity, UA Clear [facility] Color, UA Yellow [facility] Glucose, UA Negative Negative - 1999(110) ++++ mg/dL [facility] Interpretation and review of laboratory results Abnormal [facility] Ketones, UA Negative Negative - 160(16) ++++ mg/dL [facility] Leukocytes, UA Positive Negative - 500+++ Gabby/mcL [facility] Comment on above: small Nitrite, UA Negative Negative - Positive [facility] pH, UA 7 5 - 9 [facility] Protein, UA Negative Negative - 1999(20) ++++ mg/dL [facility] Spec Grav, UA 1.02 1 - 1.03 [facility] Urobilinogen, UA 0.2 0.2 - 12 mg/dL [facility] ALL THYROID STIM HORMONEon 0 - TSH Qn 2.645 m[IU]/L [facility] Alanine aminotransferase [En zymatic activity/volume] in Serum or PlasmaOrdered By: Marychuy Kyle on 10-06-2023 ALT [Catalytic activity/Vol] 13 U/L Normal 7-52 [facility] Comment on above: Performed By: #### C BC, CMP, HCGQNT #### [facility] [address] [place] [address] [place] Albumin [Mass/volume] in Ser um or Plasma by Bromocresol green (BCG) dye binding methoOrdered By: Marychuy Jeronimoimore on 10-06-2023 Albumin BCG dye [Mass/Vol] 3.8 g/dL 3.5-5.7 [facility] Alkaline phosphatase [Enzyma tic activity/volume] in Serum or PlasmaOrdered By: Marychuy Jeronimoimore on 10-06-2023 ALP [Catalytic activity/Vol] 61 U/L Normal 34-104 [facility] Comment on above: Performed By: #### C BC, CMP, HCGQNT #### [facility] [address] [place] [address] [place] Aspartate aminotransferase [ Enzymatic activity/volume] in Serum or PlasmaOrdered By: Marychuy Jeronimoimore on 10-06-2023 AST [Catalytic activity/Vol] 13 U/L Normal 13-39 [facility] Comment on above: Performed By: #### C BC, CMP, HCGQNT #### [address] Automated basophil %Ordered By: Marychuy Bullimore on 10-06-2023 Basophils/100 WBC (Bld) 0.6 % Normal . [facility] Comment on above: Performed By: #### C BC, CMP, HCGQNT #### [address] Automated basophil countOrde red By: Marychuy Bullimore on 10-06-2023 Basophils (Bld) [#/Vol] 0.0 10*3/uL Normal 0.0-0.2 [facility] Comment on above: Result Comment: PERF ORMED BY: [place] [address] PATHOLOGIST ASSISTANT CHILD CARE TEACHER LION STANLEY M.D. Performed By: #### C BC, CMP, HCGQNT #### [address] Automated blood monocyte cou ntOrdered By: Marychuy Bullimore on 10-06-2023 Monocytes (Bld) [#/Vol] 0.5 10*3/uL Normal 0.0-0.8 [facility] Comment on above: Performed By: #### C BC, CMP, HCGQNT #### [address] Automated eosinophil %Ordere d By: Marychuy Bullimore on 10-06-2023 Eosinophils/100 WBC (Bld) 0.7 % Normal . [facility] Comment on above: Performed By: #### C BC, CMP, HCGQNT #### [address] Automated eosinophil countOr dered By: Marychuy Bullimore on 10-06-2023 Eosinophils (Bld) [#/Vol] 0.1 10*3/uL Normal 0.0-0.45 [facility] Comment on above: Performed By: #### C BC, CMP, HCGQNT #### [address] [place] [address] [place] Automated epithelial cells c ount in urine sediment (number/area)Ordered By: Marychuy Kyle on 10-06-2023 Epithelial cells Auto (Urine sed) [#/Area] 3-4 [HPF] 0-2 [facility] Automated monocyte %Ordered By: Marychuy Wangore on 10-06-2023 Monocytes/100 WBC (Bld) 6.7 % Normal . [facility] Comment on above: Performed By: #### C BC, CMP, HCGQNT #### [address] Automated neutrophil %Ordere d By: Marychuy Wangore on 10-06-2023 Neutrophils/100 WBC (Bld) 54.4 % Normal . [facility] Comment on above: Performed By: #### C BC, CMP, HCGQNT #### [address] Bacteria [Presence] in Urine by AutomatedOrdered By: Marychuy Kyle on 10-06-2023 Bacteria Auto Ql (U) None seen [HPF] None Seen [facility] Bilirubin Test strip Ql (U)O rdered By: Marychuy Kyle on 10-06-2023 Bilirubin Ql (U) Negative Negative [facility] Bilirubin.total [Mass/volume ] in Serum or PlasmaOrdered By: Marychuy Kyle on 10-06-2023 Bilirubin [Mass/Vol] 0.2 mg/dL Low 0.3-1.0 [facility] Comment on above: Performed By: #### C BC, CMP, HCGQNT #### [facility] [address] [place] [address] [place] Calcium [Mass/volume] in Ser um or PlasmaOrdered By: Marychuy Bullimore on 10-06-2023 Calcium [Mass/Vol] 9.4 mg/dL Normal 8.6-10.3 [facility] Comment on above: Performed By: #### C BC, CMP, HCGQNT #### [facility] [address] [place] [address] [place] Carbon dioxide, total [Moles /volume] in Serum or PlasmaOrdered By: Marychuy Bullimore on 10-06-2023 CO2 [Moles/Vol] 25.5 mmol/L Normal 21.0-31.0 [facility] Comment on above: Performed By: #### C BC, CMP, HCGQNT #### [facility] [address] Chloride [Moles/volume] in S sondra or PlasmaOrdered By: Marychuy Bullimore on 10-06-2023 Chloride [Moles/Vol] 105 mmol/L Normal 98-107 [facility] Comment on above: Performed By: #### C BC, CMP, HCGQNT #### [address] Choriogonadotropin.beta subu nit [Units/volume] in Serum or PlasmaOrdered By: Marychuy Bullimore on 10-06-2023 HCG.beta subunit Qn 2799.00 m[IU]/mL [facility] Comment on above: Approximate Approxim ate hCG Gestational Age Range (mIU/ml) (weeks)0.2-1 5-50 1-2 50-500 2-3 100-5,000 3-4 500-10,000 4-5 1,000-50,000 5-6 10,000-100,000 6-8 15,000-200,000 8-12 10,000-100,000 Color of Urine by AutoOrdere d By: Marychuy Wangore on 10-06-2023 Color (U) Yellow Normal Yellow [facility] Comment on above: Order Comment: NEED MORE SPECIMEN Name Collection Type:: Clean-Voided Midstream Performed By: #### A DDONUAPLUS #### [address] Complete Blood Count Auto Di ffon 10-06-2023 Mean Corpuscular HGB Conc 34.4 g/dL Normal 32.0-35.0 [facility] Comment on above: Performed By: #### C BC, CMP, HCGQNT #### [place] [address] [place] Monocytes/100 WBC (Bld) 17.37 % Normal 0.00-20.00 [facility] Comment on above: Performed By: #### C BC, CMP, HCGQNT #### [address] NRBC% 0.2 /100{WBC} Normal 0-0.5 [facility] Comment on above: Performed By: #### C BC, CMP, HCGQNT #### [address] Comprehensive Metabolic Pane panchito 10-06-2023 Albumin [Mass/Vol] 3.8 g/dL Normal 3.5-5.7 [facility] Comment on above: Performed By: #### C BC, CMP, HCGQNT #### [address] Creatinine Clr Calc Pharmacy 180.48 Normal [facility] Comment on above: Performed By: #### C BC, CMP, HCGQNT #### [address] GFR/1.73 sq M.predicted MDRD (S/P/Bld) [Vol rate/Area] mL/min/{1.73_m2} Normal [facility] Comment on above: Performed By: #### C BC, CMP, HCGQNT #### [address] Creatinine [Mass/volume] in Serum or PlasmaOrdered By: Marychuy Kyle on 10-06-2023 Creatinine [Mass/Vol] 0.63 mg/dL Normal 0.60-1.20 [facility] Comment on above: Performed By: #### C BC, CMP, HCGQNT #### [place] [address] [place] Dipstick and Microscopicon 0 10-06-2023 Appearance (U) Clear Normal Clear [facility] Comment on above: Order Comment: NEED MORE SPECIMEN Name Collection Type:: Clean-Voided Midstream Performed By: #### A DDONUAPLUS #### [address] Bacteria,Urine None Seen Normal None Seen [facility] Comment on above: Order Comment: NEED MORE SPECIMEN Name Collection Type:: Clean-Voided Midstream Performed By: #### A DDONUAPLUS #### [facility] [address] Bilirubin,Urine Negative Normal Negative [facility] Comment on above: Order Comment: NEED MORE SPECIMEN Name Collection Type:: Clean-Voided Midstream Performed By: #### A DDONUAPLUS #### [address] Glucose Ql (U) Normal Normal Normal [facility] Comment on above: Order Comment: NEED MORE SPECIMEN Name Collection Type:: Clean-Voided Midstream Performed By: #### A DDONUAPLUS #### [address] Hyaline Casts,Urine 0-8 Normal 0-8 [facility] Comment on above: Order Comment: NEED MORE SPECIMEN Name Collection Type:: Clean-Voided Midstream Result Comment: PERF ORMED BY: [place] [address] PATHOLOGIST ASSISTANT CHILD CARE TEACHER LION STANLEY M.D. Performed By: #### A DDONUAPLUS #### [address] Ketones Ql (U) Negative Normal Negative [facility] Comment on above: Order Comment: NEED MORE SPECIMEN Name Collection Type:: Clean-Voided Midstream Performed By: #### A DDONUAPLUS #### [address] Leukocyte esterase Test strip Ql (U) 1+ High Negative [facility] Comment on above: Order Comment: NEED MORE SPECIMEN Name Collection Type:: Clean-Voided Midstream Performed By: #### A DDONUAPLUS #### [place] [address] [place] Nitrite,Urine Negative Normal Negative [facility] Comment on above: Order Comment: NEED MORE SPECIMEN Name Collection Type:: Clean-Voided Midstream Performed By: #### A DDONUAPLUS #### [place] [address] [place] Occult Blood,Urine Negative Normal Negative [facility] Comment on above: Order Comment: NEED MORE SPECIMEN Name Collection Type:: Clean-Voided Midstream Result Comment: PERF ORMED BY: [place] [address] PATHOLOGIST ASSISTANT CHILD CARE TEACHER LION STANLEY M.D. Performed By: #### A DDONUAPLUS #### [place] [address] [place] Protein,Urine Negative Normal Negative [facility] Comment on above: Order Comment: NEED MORE SPECIMEN Name Collection Type:: Clean-Voided Midstream Performed By: #### A DDONUAPLUS #### [address] RBC LM.HPF (Urine sed) [#/Area] 0 /[HPF] Normal 0-4 [facility] Comment on above: Order Comment: NEED MORE SPECIMEN Name Collection Type:: Clean-Voided Midstream Performed By: #### A DDONUAPLUS #### [place] [address] [place] Specificy [place],Urine 1.017 Normal 1.001-1.030 [facility] Comment on above: Order Comment: NEED MORE SPECIMEN Name Collection Type:: Clean-Voided Midstream Performed By: #### A DDONUAPLUS #### [place] [address] [place] Squamous Epithelial Cell,Urine 3-4 High 0-2 [facility] Comment on above: Order Comment: NEED MORE SPECIMEN Name Collection Type:: Clean-Voided Midstream Performed By: #### A DDONUAPLUS #### [place] [address] [place] Urobilinogen,Urine Normal Normal Normal [facility] Comment on above: Order Comment: NEED MORE SPECIMEN Name Collection Type:: Clean-Voided Midstream Performed By: #### A DDONUAPLUS #### [place] [address] [place] WBC,Urine 3-4 Normal 0-4 [facility] Comment on above: Order Comment: NEED MORE SPECIMEN Name Collection Type:: Clean-Voided Midstream Performed By: #### A DDONUAPLUS #### [address] Erythrocyte distribution wid th [Ratio] by Automated countOrdered By: Marychuy Kyle on 10-06-2023 Erythrocyte distribution width (RBC) [Ratio] 13.4 % Normal 11.9-15.3 [facility] Comment on above: Performed By: #### C BC, CMP, HCGQNT #### [address] Erythrocytes [#/area] in Uri ne sediment by Automated countOrdered By: Marychuy Kyle on 10-06-2023 RBC Auto (Urine sed) [#/Area] 0-1 [HPF] 0-4 [facility] Erythrocytes [#/volume] in B lood by Automated countOrdered By: Marychuy Kyle on 10-06-2023 RBC (Bld) [#/Vol] 4.08 10*6/uL Normal 3.60-5.00 [facility] Comment on above: Performed By: #### C BC, CMP, HCGQNT #### [address] Glucose [Mass/volume] in Ser um or PlasmaOrdered By: Marychuy Kyle on 10-06-2023 Glucose [Mass/Vol] 100 mg/dL Normal 70-100 [facility] Comment on above: ADA recommended refe rence rangeRandom Glucose Reference Range is dependent on time and content of last meal. Glucose of more than 200 mg/dL in a nonstressed, ambulatory subject supports the diagnosis of Diabetes Mellitus. Result Comment: [place] om Glucose Reference Range is dependent on time and content of last meal. Glucose of more than 200 mg/dL in a nonstressed, ambulatory subject supports the diagnosis of Diabetes Mellitus. ADA recommended reference range Performed By: #### C BC, CMP, HCGQNT #### [address] HCG,Quantitativeon HCG,Quantitative 2799.00 m[iU]/mL Normal [facility] Comment on above: Result Comment: Appr oximate Approximate hCG Gestational Age Range (mIU/ml) (weeks) 0.2-1 5-50 1-2 50-500 2-3 100-5,000 3-4 500-10,000 4-5 1,000-50,000 5-6 10,000-100,000 6-8 15,000-200,000 8-12 10,000-100,000 PERFORMED BY: [place] [address] PATHOLOGIST ASSISTANT CHILD CARE TEACHER LION STANLEY M.D. Performed By: #### C BC, CMP, HCGQNT #### [address] Hematocrit [Volume Fraction] of Blood by Automated countOrdered By: Marychuy Kyle on 10-06-2023 Hematocrit (Bld) [Volume fraction] 36.7 % Normal 34.0-46.4 [facility] Comment on above: Performed By: #### C BC, CMP, HCGQNT #### [facility] [address] [place] [address] Hemoglobin [Mass/volume] in BloodOrdered By: Marychuy Kyle on 10-06-2023 Hemoglobin (Bld) [Mass/Vol] 12.6 g/dL Normal 11.8-15.4 [facility] Comment on above: Performed By: #### C BC, CMP, HCGQNT #### [address] Ketones Auto test strip (U) [Mass/Vol]Ordered By: Marychuy Kyle on 10-06-2023 Ketones (U) [Mass/Vol] Negative Negative [facility] - UrinalysisOrder ed By: Marychuy Kyle on 10-06-2023 Hyaline casts LM Ql (Urine sed) 0-8 [LPF] 0-8 [facility] Leukocytes [#/area] in Urine sediment by Automated countOrdered By: Marychuy Kyle on 10-06-2023 WBC Auto (Urine sed) [#/Area] 3-4 [HPF] 0-4 [facility] Leukocytes [#/volume] correc inocencia for nucleated erythrocytes in Blood by Automated counOrdered By: Marychuy Jeronimoimore on 10-06-2023 WBC corrected for nucl RBC Auto (Bld) [#/Vol] 7.4 10*3/uL 3.8-11.6 [facility] Leukocytes [#/volume] in Blo od by Automated countOrdered By: Marychuy Jeronimoimore on 10-06-2023 WBC (Bld) [#/Vol] 7.4 10*3/uL Normal 3.8-11.6 [facility] Comment on above: Performed By: #### C BC, CMP, HCGQNT #### [facility] [address] [place] [address] [place] Lymphocytes [#/volume] in Bl ood by Automated countOrdered By: Marychuy Kyle on 10-06-2023 Lymphocytes (Bld) [#/Vol] 2.8 10*3/uL Normal 1.00-4.8 [facility] Comment on above: Performed By: #### C BC, CMP, HCGQNT #### [facility] [address] [place] [address] [place] Lymphocytes/100 leukocytes i n Blood by Automated countOrdered By: Marychuy Jeronimoimore on 10-06-2023 Lymphocytes/100 WBC (Bld) 37.6 % Normal . [facility] Comment on above: Performed By: #### C BC, CMP, HCGQNT #### [facility] [address] [place] [address] [place] MCH [Entitic mass] by Automa inocencia countOrdered By: Marychuy Kathleenore on 10-06-2023 MCH (RBC) [Entitic mass] 31.0 pg Normal 24.7-34.3 [facility] Comment on above: Performed By: #### C BC, CMP, HCGQNT #### [facility] [address] [place] [address] [place] MCHC Auto (RBC) [Mass/Vol]Or dered By: Marychuy Bullimore on 10-06-2023 MCHC (RBC) [Mass/Vol] 34.4 g/dL 32.0-35.0 [facility] MCV [Entitic volume] by Auto mated countOrdered By: Marychuy Kyle on 10-06-2023 MCV (RBC) [Entitic vol] 90.1 fL Normal 80-100 [facility] Comment on above: Performed By: #### C BC, CMP, HCGQNT #### [facility] [address] Monocyte distribution width [Entitic volume] in Blood by AutomatedOrdered By: Marychuy Kyle on 10-06-2023 Monocyte distribution width Auto (Bld) [Entitic vol] 17.37 % 0.00-20.00 [facility] Neutrophils [#/volume] in Bl ood by Automated countOrdered By: Marychuy Kyle on 10-06-2023 Neutrophils (Bld) [#/Vol] 4.0 10*3/uL Normal 1.8-7.7 [facility] Comment on above: Performed By: #### C BC, CMP, HCGQNT #### [facility] [address] Nitrite Test strip Ql (U)Ord ered By: Marychuy Kyle on 10-06-2023 Nitrite Ql (U) Negative Negative [facility] No Panel InformationOrdered By: Marychuy Kyle on 10-06-2023 Estimated GFR (CKD-EPI) > 60.0 mL/Min [facility] Creatinine Clearance (Chem 180.48 [facility] Nucleated erythrocytes [Pres ence] in Blood by Automated countOrdered By: Marychuy Kyle on 10-06-2023 Nucleated RBC Auto Ql (Bld) 0.2 /100{WBC} 0-0.5 [facility] Platelet mean volume [Entiti c volume] in Blood by Automated countOrdered By: Marychuy Kyle on 10-06-2023 Platelet mean volume (Bld) [Entitic vol] 7.5 fL Normal 6.3-10.7 [facility] Comment on above: Performed By: #### C BC, CMP, HCGQNT #### [facility] [address] [place] [address] Platelets [#/volume] in Bloo d by Automated countOrdered By: Marychuy Bullimore on 10-06-2023 Platelets (Bld) [#/Vol] 367 10*3/uL Normal 150-450 [facility] Comment on above: Performed By: #### C BC, CMP, HCGQNT #### [address] Potassium [Moles/volume] in Serum or PlasmaOrdered By: Marychuy Bullimore on 10-06-2023 Potassium [Moles/Vol] 4.1 mmol/L Normal 3.5-5.1 [facility] Comment on above: Performed By: #### C BC, CMP, HCGQNT #### [address] Protein Auto test strip (U) [Mass/Vol]Ordered By: Marychuy Bullimore on 10-06-2023 Protein (U) [Mass/Vol] Negative Negative [facility] Protein [Mass/volume] in Ser um or PlasmaOrdered By: Marychuy Bullimore on 10-06-2023 Protein [Mass/Vol] 7.4 g/dL Normal 6.4-8.9 [facility] Comment on above: Performed By: #### C BC, CMP, HCGQNT #### [address] Serum globulin measurement b y calculation (mass/volume)Ordered By: Marychuy Bullimore on 10-06-2023 Globulin (S) [Mass/Vol] 3.6 g/dL Normal [facility] Comment on above: Performed By: #### C BC, CMP, HCGQNT #### [facility] [address] [place] [address] Serum or plasma albumin/glob ulin mass ratioOrdered By: Marychuy Bullimore on 10-06-2023 Albumin/Globulin [Mass ratio] 1.1 {ratio} [facility] Comment on above: Performed By: #### C BC, CMP, HCGQNT #### [address] Serum or plasma anion gap de terminationOrdered By: Marychuy Phaniimore on 10-06-2023 Anion gap [Moles/Vol] 12.6 mmol/L Normal 6.0-15.[address] [facility] Comment on above: Performed By: #### C BC, CMP, HCGQNT #### [place] [address] [place] Sodium [Moles/volume] in Ser um or PlasmaOrdered By: Marychuy Bullimore on 10-06-2023 Sodium [Moles/Vol] 139 mmol/L Normal 136-145 [facility] Comment on above: Performed By: #### C BC, CMP, HCGQNT #### [address] Specific gravity Auto test s trip (U) [Rel density]Ordered By: Marychuy Kyle on 10-06-2023 Specific gravity (U) [Rel density] 1.017 1.001-1.030 [facility] Urea nitrogen [Mass/volume] in Serum or PlasmaOrdered By: Marychuy Jeronimoimdianne on 10-06-2023 Urea nitrogen [Mass/Vol] 7 mg/dL Normal 7-25 [facility] Comment on above: Performed By: #### C BC, CMP, HCGQNT #### [address] Urine clarity by refractomet ry automatedOrdered By: Marychuy Kyle on 10-06-2023 Clarity Refractometry automated (U) Clear Clear [facility] Urine glucose measurement by automated test strip (mass/volume)Ordered By: Marychuy Kyle on 10-06-2023 Glucose Auto test strip (U) [Mass/Vol] Normal mg/dL Normal [facility] Urine hemoglobin detection b y automated test stripOrdered By: Marychuy Kyle on 10-06-2023 Hemoglobin Auto test strip Ql (U) Negative Negative [facility] Urine leukocyte esterase det ection by automated test stripOrdered By: Marychuy Kyle on 10-06-2023 Leukocyte esterase Auto test strip Ql (U) 1+ Negative [facility] Urine pH measurement by auto mated test stripOrdered By: Marychuy Kyle on 10-06-2023 pH (U) 7.0 [pH] Normal 5.0-9.0 [facility] Comment on above: Order Comment: NEED MORE SPECIMEN Name Collection Type:: Clean-Voided Midstream Performed By: #### A DDONUAPLUS #### [facility] [address] Urobilinogen Auto test strip (U) [Mass/Vol]Ordered By: Marychuy Kyle on 10-06-2023 Urobilinogen (U) [Mass/Vol] Normal mg/dL Normal [facility] Basia 09-11-2023 LIZ Telephone (MARTIN) -------- JALEESA ARRIETA ([id number]) 1990 F Date Time Provider Department 09/11/23 [...] Date Reviewed: 08/20/2023 Reviewed by: Tonya Senior APRN.PSYCHIATRY PHYSICIAN - Fully Assessed Reason for Visit: Results [...] Status:Closed by TONYA SENIOR on 09/23/23 Normal [facility] NICOTINE AND METAB, URon URIN ANABASINE QUANT <5 Normal [facility] Comment on above: Order Comment: Speci men Type: URINE SPECIMEN Ordering Facility: [facility] Address: [address] [place] [address] Performed By: #### U NICOT #### [facility] CLIA [id number] [address] [place] [address] URIN COTININE QUANT <15 Normal [facility] Comment on above: Order Comment: Speci men Type: URINE SPECIMEN Ordering Facility: [facility] Address: [address] [place] [address] Performed By: #### U NICOT #### [facility] CLIA [id number] [address] [place] [address] URIN NICOTINE QUANT <15 Normal [facility] Comment on above: Order Comment: Speci men Type: URINE SPECIMEN Ordering Facility: [facility] Address: [address] [place] [address] Result Comment: INTE RPRETIVE INFORMATION: Nicotine and Metabolites, Urine, Quantitative Methodology: Quantitative Liquid Chromatography-Tandem Mass Spectrometry Positive cutoff: Nicotine 15 ng/mL Cotinine 15 ng/mL 2-US-Rxkwxzuc 50 ng/mL Anabasine 5 ng/mL For medical [...] developed and its performance characteristics determined by [employer]. It has not been cleared or approved by the [place] Food and Drug Administration. This test was performed in a CLIA certified laboratory and is intended for clinical purposes. Performed By: [employer] [address] [place] [address] Paste Worker: Rex Zuleta MD, PhD CLIA Number: [id number] Performed By: #### U NICOT #### [facility] CLIA [id number] [address] [place] [address] URINE 3 [place] COTININE <50 Normal [facility] Comment on above: Order Comment: Speci men Type: URINE SPECIMEN Ordering Facility: [facility] Address: [address] [place] [address] Performed By: #### U NICOT #### [facility] CLIA [id number] [address] [place] [address] TOXICOLOGY SCREEN, ROUTINE U RINEon 09-08-2023 Amphetamines Confirm (U) [Mass/Vol] Negative Normal Negative [facility] Comment on above: Order Comment: Speci men Type: URINE SPECIMEN Ordering Facility: [facility] Address: [address] [place] [address] Result Comment: Cuto ff threshold at 1000 ng/mL. Performed By: #### U TOX2 #### [facility] CLIA [id number] [address] [place] [address] [place] BARBITURATES, URINE Negative Normal Negative [facility] Comment on above: Order Comment: Speci men Type: URINE SPECIMEN Ordering Facility: [facility] Address: [address] [place] [address] Result Comment: Cuto ff threshold at 200 ng/mL. Performed By: #### U TOX2 #### [facility] CLIA [id number] [address] [place] [address] [place] BENZODIAZEPINES, UR Negative Normal Negative [facility] Comment on above: Order Comment: Speci men Type: URINE SPECIMEN Ordering Facility: [facility] Address: [address] [place] [address] Result Comment: Cuto ff threshold at 200 ng/mL. Performed By: #### U TOX2 #### [facility] CLIA [id number] [address] [place] [address] [place] Cannabinoids Screen Ql (U) Negative Normal Negative [facility] Comment on above: Order Comment: Speci men Type: URINE SPECIMEN Ordering Facility: [facility] Address: [address] [place] [address] Result Comment: Cuto ff threshold at 50 ng/mL. Performed By: #### U TOX2 #### [facility] CLIA [id number] [address] [place], [place] [address] [place] Cocaine Ql (U) Negative Normal Negative [facility] Comment on above: Order Comment: Speci men Type: URINE SPECIMEN Ordering Facility: [facility] Address: [address] [place] [address] Result Comment: Cuto ff threshold at 300 ng/mL. Performed By: #### U TOX2 #### [facility] CLIA [id number] [address] [place] [address] [place] Ethanol (U) [Mass/Vol] <11 Normal <11 [facility] Comment on above: Order Comment: Speci men Type: URINE SPECIMEN Ordering Facility: [facility] Address: [address] [place] [address] Performed By: #### U TOX2 #### [facility] CLIA [id number] [address] [place] [address] [place] Opiates Screen Ql (U) Negative Normal Negative [facility] Comment on above: Order Comment: Speci men Type: URINE SPECIMEN Ordering Facility: [facility] Address: [address] [place] [address] Result Comment: Cuto ff threshold at 300 ng/mL. Performed By: #### U TOX2 #### [facility] CLIA [id number] [address] [place] [address] [place] oxyCODONE cutoff Screen (U) [Mass/Vol] Negative Normal Negative [facility] Comment on above: Order Comment: Speci men Type: URINE SPECIMEN Ordering Facility: [facility] Address: [address] [place] [address] Result Comment: Cuto ff threshold at 100 ng/mL. Performed By: #### U TOX2 #### [facility] CLIA [id number] [address] [place] [address] [place] Phencyclidine Ql (U) Negative Normal Negative [facility] Comment on above: Order Comment: Speci men Type: URINE SPECIMEN Ordering Facility: [facility] Address: [address] [place] [address] Result Comment: Cuto ff threshold at 25 ng/mL. Performed By: #### U TOX2 #### [facility] CLIA [id number] [address] [place] [address] [place] 25(OH)D3 SerPl-mCncon 2023 25-hydroxyvitamin D3 [Mass/Vol] 11.9 ng/mL Low 31.0-80.0 [facility] Comment on above: Order Comment: Speci men Type: BLOOD SPECIMEN Ordering Facility: [facility] Address: [address] [place] [address] Performed By: #### 2 276-4, 2132-01, 2283-12 #### [facility] CLIA [id number] [address] [place] [address] [place] CBC W Auto Differential pane l (Bld)on 09-05-2023 Basophils (Bld) [#/Vol] 10*3/uL Normal <0.11 [facility] Comment on above: Order Comment: Speci men Type: BLOOD SPECIMEN Ordering Facility: [facility] Address: [address] [place] [address] Performed By: #### 2 276-4, 2132-01, 2283-12 #### [facility] CLIA [id number] [address] [place] [address] [place] Basophils/100 WBC (Bld) 0.3 % Normal [facility] Comment on above: Order Comment: Speci men Type: BLOOD SPECIMEN Ordering Facility: [facility] Address: [address] [place] [address] Performed By: #### 2 276-4, 2132-01, 2283-12 #### [facility] CLIA [id number] [address] [place] [address] [place] Differential cell count method Nom (Bld) Auto Normal [facility] Comment on above: Order Comment: Speci men Type: BLOOD SPECIMEN Ordering Facility: [facility] Address: [address] [place] [address] Performed By: #### 2 276-4, 2132-01, 2283-12 #### [facility] CLIA [id number] [address] [place] [address] [place] Eosinophils (Bld) [#/Vol] 0.09 10*3/uL Normal <0.46 [facility] Comment on above: Order Comment: Speci men Type: BLOOD SPECIMEN Ordering Facility: [facility] Address: [address] [place] [address] Performed By: #### 2 276-4, 2132-01, 2283-12 #### [facility] CLIA [id number] [address] [place] [address] [place] Eosinophils/100 WBC (Bld) 1.3 % Normal [facility] Comment on above: Order Comment: Speci men Type: BLOOD SPECIMEN Ordering Facility: [facility] Address: [address] [place] [address] Performed By: #### 2 276-4, 2132-01, 2283-12 #### [facility] CLIA [id number] [address] [place] [address] [place] Erythrocyte distribution width (RBC) [Ratio] 12.6 % Normal 11.5-15.0 [facility] Comment on above: Order Comment: Speci men Type: BLOOD SPECIMEN Ordering Facility: [facility] Address: [address] [place] [address] Performed By: #### 2 276-4, 2132-01, 2283-12 #### [facility] CLIA [id number] [address] [place] [address] [place] Hematocrit (Bld) [Volume fraction] 38.0 % Normal 36.0-46.0 [facility] Comment on above: Order Comment: Speci men Type: BLOOD SPECIMEN Ordering Facility: [facility] Address: [address] [place] [address] Performed By: #### 2 276-4, 9, 2283-12 #### [facility] CLIA [id number] [address] [place] [address] [place] Hemoglobin (Bld) [Mass/Vol] 12.8 g/dL Normal 11.5-15.5 [facility] Comment on above: Order Comment: Speci men Type: BLOOD SPECIMEN Ordering Facility: [facility] Address: [address] [place] [address] Performed By: #### 2 276-4, 9, 2283-12 #### [facility] CLIA [id number] [address] [place] [address] [place] Immature granulocytes (Bld) [#/Vol] 10*3/uL Normal <0.10 [facility] Comment on above: Order Comment: Speci men Type: BLOOD SPECIMEN Ordering Facility: [facility] Address: [address] [place] [address] Performed By: #### 2 276-4, 2132-01, 2283-12 #### [facility] CLIA [id number] [address] [place] [address] [place] Immature granulocytes/100 WBC (Bld) 0.1 % Normal [facility] Comment on above: Order Comment: Speci men Type: BLOOD SPECIMEN Ordering Facility: [facility] Address: [address] [place] [address] Performed By: #### 2 276-4, 2132-01, 2283-12 #### [facility] CLIA [id number] [address] [place] [address] [place] Lymphocytes (Bld) [#/Vol] 3.49 10*3/uL Normal 1.00-4.00 [facility] Comment on above: Order Comment: Speci men Type: BLOOD SPECIMEN Ordering Facility: [facility] Address: [address] [place] [address] Performed By: #### 2 276-4, 2132-01, 2283-12 #### [facility] CLIA [id number] [address] [place] [address] [place] Lymphocytes/100 WBC (Bld) 48.6 % Normal [facility] Comment on above: Order Comment: Speci men Type: BLOOD SPECIMEN Ordering Facility: [facility] Address: [address] [place] [address] Performed By: #### 2 276-4, 2132-01, 2283-12 #### [facility] CLIA [id number] [address] [place] [address] [place] MCH (RBC) [Entitic mass] 30.0 pg Normal 26.0-34.0 [facility] Comment on above: Order Comment: Speci men Type: BLOOD SPECIMEN Ordering Facility: [facility] Address: [address] [place] [address] Performed By: #### 2 276-4, 2132-01, 2283-12 #### [facility] CLIA [id number] [address] [place] [address] [place] MCHC (RBC) [Mass/Vol] 33.7 g/dL Normal 30.5-36.0 [facility] Comment on above: Order Comment: Speci men Type: BLOOD SPECIMEN Ordering Facility: [facility] Address: [address] [place] [address] Performed By: #### 2 276-4, 2132-01, 2283-12 #### [facility] CLIA [id number] [address] [place] [address] [place] MCV (RBC) [Entitic vol] 89.2 fL Normal 80.0-100.0 [facility] Comment on above: Order Comment: Speci men Type: BLOOD SPECIMEN Ordering Facility: [facility] Address: [address] [place] [address] Performed By: #### 2 276-4, 2132-01, 2283-12 #### [facility] CLIA [id number] [address] [place] [address] [place] Monocytes (Bld) [#/Vol] 0.48 10*3/uL Normal <0.87 [facility] Comment on above: Order Comment: Speci men Type: BLOOD SPECIMEN Ordering Facility: [facility] Address: [address] [place] [address] Performed By: #### 2 276-4, 2132-01, 2283-12 #### [facility] CLIA [id number] [address] [place] [address] [place] Monocytes/100 WBC (Bld) 6.7 % Normal [facility] Comment on above: Order Comment: Speci men Type: BLOOD SPECIMEN Ordering Facility: [facility] Address: [address] [place] [address] Performed By: #### 2 276-4, 2132-01, 2283-12 #### [facility] CLIA [id number] [address] [place] [address] [place] Neutrophils (Bld) [#/Vol] 3.09 10*3/uL Normal 1.45-7.50 [facility] Comment on above: Order Comment: Speci men Type: BLOOD SPECIMEN Ordering Facility: [facility] Address: [address] [place] [address] Performed By: #### 2 276-4, 2132-01, 2283-12 #### [facility] CLIA [id number] [address] [place], [place] [address] [place] Neutrophils/100 WBC (Bld) 43.0 % Normal [facility] Comment on above: Order Comment: Speci men Type: BLOOD SPECIMEN Ordering Facility: [facility] Address: [address] [place] [address] Performed By: #### 2 276-4, 2132-01, 2283-12 #### [facility] CLIA [id number] [address] [place] [address] [place] Nucleated RBC (Bld) [#/Vol] 10*3/uL Normal <0.01 [facility] Comment on above: Order Comment: Speci men Type: BLOOD SPECIMEN Ordering Facility: [facility] Address: [address] [place] [address] Performed By: #### 2 276-4, 2132-01, 2283-12 #### [facility] CLIA [id number] [address] [place] [address] [place] Nucleated RBC/100 WBC (Bld) [Ratio] 0.0 /100 WBC Normal [facility] Comment on above: Order Comment: Speci men Type: BLOOD SPECIMEN Ordering Facility: [facility] Address: [address] [place] [address] Performed By: #### 2 276-4, 2132-01, 2283-12 #### [facility] CLIA [id number] [address] [place] [address] [place] Platelet mean volume (Bld) [Entitic vol] 9.2 fL Normal 9.0-12.7 [facility] Comment on above: Order Comment: Speci men Type: BLOOD SPECIMEN Ordering Facility: [facility] Address: [address] [place] [address] Performed By: #### 2 276-4, 2132-01, 2283-12 #### [facility] CLIA [id number] [address] [place] [address] [place] Platelets (Bld) [#/Vol] 361 10*3/uL Normal 150-400 [facility] Comment on above: Order Comment: Speci men Type: BLOOD SPECIMEN Ordering Facility: [facility] Address: [address] [place] [address] Performed By: #### 2 276-4, 2132-01, 2283-12 #### [facility] CLIA [id number] [address] [place] [address] [place] RBC (Bld) [#/Vol] 4.26 10*6/uL Normal 3.90-5.20 [facility] Comment on above: Order Comment: Speci men Type: BLOOD SPECIMEN Ordering Facility: [facility] Address: [address] [place] [address] Performed By: #### 2 276-4, 2-9, 4-8 #### [facility] CLIA [id number] [address] [place] [address] [place] WBC (Bld) [#/Vol] 7.18 10*3/uL Normal 3.70-11.00 [facility] Comment on above: Order Comment: Speci men Type: BLOOD SPECIMEN Ordering Facility: [facility] Address: [address] [place] [address] Performed By: #### 2 276-4, 2131-9, 2283-8 #### [facility] CLIA [id number] [address] [place] [address] [place] Comprehensive metabolic 2000 panelon 09-05-2023 Albumin [Mass/Vol] 4.0 g/dL Normal 3.9-4.9 [facility] Comment on above: Order Comment: Speci men Type: BLOOD SPECIMEN Ordering Facility: [facility] Address: [address] [place] [address] Performed By: #### 2 4323-8 #### [facility] CLIA [id number] [address] [place] [address] ALP [Catalytic activity/Vol] 91 U/L Normal 34-123 [facility] Comment on above: Order Comment: Speci men Type: BLOOD SPECIMEN Ordering Facility: [facility] Address: [address] [place] [address] Performed By: #### 2 4323-8 #### [facility] CLIA [id number] [address] [place] [address] ALT [Catalytic activity/Vol] 15 U/L Normal 7-38 [facility] Comment on above: Order Comment: Speci men Type: BLOOD SPECIMEN Ordering Facility: [facility] Address: [address] [place] [address] Performed By: #### 2 4323-8 #### [facility] CLIA [id number] [address] [place] [address] Anion gap [Moles/Vol] 10 mmol/L Normal 9-18 [facility] Comment on above: Order Comment: Speci men Type: BLOOD SPECIMEN Ordering Facility: [facility] Address: [address] [place] [id number] Performed By: #### 2 4323-8 #### [facility] CLIA [id number] [address] [place] [address] AST [Catalytic activity/Vol] 13 U/L Normal 13-35 [facility] Comment on above: Order Comment: Speci men Type: BLOOD SPECIMEN Ordering Facility: [facility] Address: [address] [place] [address] Performed By: #### 2 4323-8 #### [facility] CLIA [id number] [address] [place] [address] Bilirubin [Mass/Vol] 0.3 mg/dL Normal 0.2-1.3 [facility] Comment on above: Order Comment: Speci men Type: BLOOD SPECIMEN Ordering Facility: [facility] Address: [address] [place] [address] Performed By: #### 2 4323-8 #### [facility] CLIA [id number] [address] [place] [address] Calcium [Mass/Vol] 9.5 mg/dL Normal 8.5-10.2 [facility] Comment on above: Order Comment: Speci men Type: BLOOD SPECIMEN Ordering Facility: [facility] Address: [address] [place] [address] Performed By: #### 2 4323-8 #### [facility] CLIA [id number] [address] [place] [address] Chloride [Moles/Vol] 106 mmol/L High 97-105 [facility] Comment on above: Order Comment: Speci men Type: BLOOD SPECIMEN Ordering Facility: [facility] Address: [address] [place], [place] [address] Performed By: #### 2 4323-8 #### [facility] CLIA [id number] [address] [place] [address] CO2 [Moles/Vol] 26 mmol/L Normal 22-30 [facility] Comment on above: Order Comment: Speci men Type: BLOOD SPECIMEN Ordering Facility: [facility] Address: [address] [place] [address] Performed By: #### 2 4323-8 #### [facility] CLIA [id number] [address] [place] [address] Creatinine [Mass/Vol] 0.75 mg/dL Normal 0.58-0.96 [facility] Comment on above: Order Comment: Speci men Type: BLOOD SPECIMEN Ordering Facility: [facility] Address: [address] [place] [address] Performed By: #### 2 4323-8 #### [facility] CLIA [id number] [address] [place] [address] Creatinine and Glomerular filtration rate.predicted panel (S/P/Bld) 109 mL/min/1.73m??? Normal >=60 [facility] Comment on above: Order Comment: Speci men Type: BLOOD SPECIMEN Ordering Facility: [facility] Address: [address] [place], [place] [address] Result Comment: Stephani mated Glomerular Filtration Rate [...] GFR. Performed By: #### 2 4323-8 #### [facility] CLIA [id number] [address] [place] [address] Glucose [Mass/Vol] 104 mg/dL High 74-99 [facility] Comment on above: Order Comment: aLury bradshaw Type: BLOOD SPECIMEN Ordering Facility: [facility] Address: [address] [place] [address] Result Comment: The [place] Diabetes Association (ADA) provides guidance for cutoff [...] Standards of Medical Care in Diabetes 2016, [place] Diabetes Association. Diabetes Care. 2016.39(Suppl 1). Performed By: #### 2 4323-8 #### [facility] CLIA [id number] [address] [place] [address] Potassium [Moles/Vol] 4.2 mmol/L Normal 3.7-5.1 [facility] Comment on above: Order Comment: Laury bradshaw Type: BLOOD SPECIMEN Ordering Facility: [facility] Address: [address] [place] [address] Performed By: #### 2 4323-8 #### [facility] CLIA [id number] [address] [place] [address] Protein [Mass/Vol] 7.4 g/dL Normal 6.3-8.0 [facility] Comment on above: Order Comment: Laury bradshaw Type: BLOOD SPECIMEN Ordering Facility: [facility] Address: [address] [place] [address] Performed By: #### 2 4323-8 #### [facility] CLIA [id number] [address] [place] [address] Sodium [Moles/Vol] 142 mmol/L Normal 136-144 [facility] Comment on above: Order Comment: Speci men Type: BLOOD SPECIMEN Ordering Facility: [facility] Address: [address] [place] [address] Performed By: #### 2 4323-8 #### [facility] CLIA [id number] [address] [place] [address] Urea nitrogen [Mass/Vol] 12 mg/dL Normal 7-21 [facility] Comment on above: Order Comment: Speci men Type: BLOOD SPECIMEN Ordering Facility: [facility] Address: [address] [place] [address] Performed By: #### 2 4323-8 #### [facility] CLIA [id number] [address] [place] [address] Ferritin SerPl-mCncon 2023 Ferritin [Mass/Vol] 86.7 ng/mL Normal 14.7-205.1 [facility] Comment on above: Order Comment: Speci men Type: BLOOD SPECIMEN Ordering Facility: [facility] Address: [address] [place] [address] Performed By: #### 2 276-4, 9, 8 #### [facility] CLIA [id number] [address] [place] [address] [place] Folate SerPl-mCncon 09-05-19 24 Folate [Mass/Vol] 12.0 ng/mL Normal >4.7 [facility] Comment on above: Order Comment: Speci men Type: BLOOD SPECIMEN Ordering Facility: [facility] Address: [address] [place] [address] Performed By: #### 2 276-4, 9, 8 #### [facility] CLIA [id number] [address] [place] [address] [place] H. pylori IgG IA Qlon 2023 H. PYLORI IGG, QUAL Negative Normal Negative [facility] Comment on above: Order Comment: Speci men Type: BLOOD SPECIMEN Ordering Facility: [facility] Address: [address] [place] [address] Result Comment: Cash ot exclude H. pylori infection if the specimen collected 3-4 weeks after onset of symptoms. Performed By: #### 2 276-4, 2132-9, 2284-8 #### [facility] CLIA [id number] [address] [place] [address] [place] HbA1c (Bld)on 09-05-2023 Average glucose Estimated from glycated hemoglobin (Bld) [Mass/Vol] 108 mg/dL Normal [facility] Comment on above: Order Comment: Speci augustine Type: BLOOD SPECIMEN Ordering Facility: [facility] Address: [address] [place] [address] Result Comment: eAG: (Estimated average glucose) is a calculated value from HgbA1c and is aircraft sales representative of the average blood glucose level in the last 2-3 month period. Performed By: #### 5 5454-3 #### [facility] CLIA [id number] [address] [place] [address] [place] HbA1c (Bld) [Mass fraction] 5.4 % Normal 4.3-5.6 [facility] Comment on above: Order Comment: Laury bradshaw Type: BLOOD SPECIMEN Ordering Facility: [facility] Address: [address] [place] [address] Result Comment: Amer [place] Diabetes Association guidelines indicate that patients with HgbA1c in the range 5.7-6.4% are at increased risk for development of diabetes, and intervention by lifestyle modification may be beneficial. HgbA1c greater or equal to 6.5% is considered diagnostic of diabetes. Performed By: #### 5 5454-3 #### [facility] CLIA [id number] [address] [place] [address] [place] Iron and Iron binding capaci ty panelon 09-05-2023 Iron [Mass/Vol] 94 ug/dL Normal 41-186 [facility] Comment on above: Order Comment: Laury bradshaw Type: BLOOD SPECIMEN Ordering Facility: [facility] Address: [address] [place] [address] Performed By: #### 5 0190-8, 6-3, 06428-6 #### [facility] CLIA [id number] [address] [place] [address] [place] #### 76060-8 #### [facility] CLIA [id number] [address] [place] [address] [place] [facility] CLIA [id number] [address] [place] [address] Iron binding capacity [Mass/Vol] 310 ug/dL Normal 232-386 [facility] Comment on above: Order Comment: Speci men Type: BLOOD SPECIMEN Ordering Facility: [facility] Address: [address] [place] [address] Performed By: #### 5 0190-8, 6-3, 67694-0 #### [facility] CLIA [id number] [address] [place] [address] [place] #### 80111-2 #### [facility] CLIA [id number] [address] [place] [address] [place] [facility] CLIA [id number] [address] [place] [address] Iron/TIBC [Molar ratio] 30.3 % Normal 15.0-57.0 [facility] Comment on above: Order Comment: Speci men Type: BLOOD SPECIMEN Ordering Facility: [facility] Address: [address] [place], [place] [address] Performed By: #### 5 0190-8, 6-3, 65706-9 #### [facility] CLIA [id number] [address] [place] [address] [place] #### 77699-5 #### [facility] CLIA [id number] [address] [place] [address] [place] [facility] CLIA [id number] [address] [place] [address] Lipid 1996 panelon 4 Cholesterol [Mass/Vol] 179 mg/dL Normal <200 [facility] Comment on above: Order Comment: Speci men Type: BLOOD SPECIMEN Ordering Facility: [facility] Address: [address] [place] [address] Result Comment: <200 mg/dL, Desirable 200-239 mg/dL, Borderline high >239 mg/dL, High Performed By: #### 2 276-4, 2132-01, 2283-12 #### [facility] CLIA [id number] [address] [place] [address] [place] Cholesterol in HDL [Mass/Vol] 45 mg/dL Normal >39 [facility] Comment on above: Order Comment: Speci men Type: BLOOD SPECIMEN Ordering Facility: [facility] Address: [address] [place] [address] Result Comment: 40-5 9 mg/dL, Acceptable >59 mg/dL, High: Negative risk factor for coronary heart disease <40 mg/dL, Low: Positive risk factor for coronary heart disease Performed By: #### 2 276-4, 2132-01, 2283-12 #### [facility] CLIA [id number] [address] [place] [address] [place] Cholesterol in LDL [Mass/Vol] 119 mg/dL High <100 [facility] Comment on above: Order Comment: Speci men Type: BLOOD SPECIMEN Ordering Facility: [facility] Address: [address] [place] [address] Result Comment: <100 mg/dL, Optimal 100-129 mg/dL, Near optimal/above optimal 130-159 mg/dL, Borderline high 160-189 mg/dL, High >189 mg/dL, Very high Secondary prevention optimal LDL Cholesterol levels are recommended to be < 70 mg/dL Performed By: #### 2 276-4, 9, 2283-12 #### [facility] CLIA [id number] [address] [place] [address] [place] Cholesterol in LDL/Cholesterol in HDL [Mass ratio] 2.64 {ratio} High <2.54 [facility] Comment on above: Order Comment: Laury bradshaw Type: BLOOD SPECIMEN Ordering Facility: [facility] Address: [address] [place] [address] Result Comment: Belinda degroot: 1. National Cholesterol Education Program ATP III Guideline At-A-Glance Quick Desk Reference: National Heart, Lung, and Blood [place]. National Institutes of Health. 2001: NIH Publication No. 01-3305. 2. An International Atherosclerosis Society position paper: global recommendations for the management of dyslipidemia: executive summary, Atherosclerosis. 2014: 232(2):410-413. Performed By: #### 2 276-4, 2132-01, 2283-12 #### [facility] CLIA [id number] [address] [place] [address] [place] Cholesterol in VLDL [Mass/Vol] 15 mg/dL Normal <30 [facility] Comment on above: Order Comment: Laury bradshaw Type: BLOOD SPECIMEN Ordering Facility: [facility] Address: [address] [place] [address] Performed By: #### 2 276-4, 2132-01, 2283-12 #### [facility] CLIA [id number] [address] [place] [address] [place] Cholesterol non HDL [Mass/Vol] 134 mg/dL High <130 [facility] Comment on above: Order Comment: Laury bradshaw Type: BLOOD SPECIMEN Ordering Facility: [facility] Address: [address] [place] [address] Result Comment: <130 mg/dL, Optimal 130-159 mg/dL, Near optimal/above optimal 160-189 mg/dL, Borderline high 190-219 mg/dL, High >219 mg/dL, Very high Secondary prevention optimal non HDL Cholesterol levels are recommended to be <100 mg/dL Performed By: #### 2 276-4, 2132-01, 2283-12 #### [facility] CLIA [id number] [address] [place] [address] [place] Cholesterol.total/Cho lesterol in HDL [Mass ratio] 3.98 {ratio} Normal <5.10 [facility] Comment on above: Order Comment: Speci men Type: BLOOD SPECIMEN Ordering Facility: [facility] Address: [address] [place] [address] Performed By: #### 2 276-4, 2132-01, 2283-12 #### [facility] CLIA [id number] [address] [place] [address] [place] FASTING TIME 12 hrs Normal [facility] Comment on above: Order Comment: Speci men Type: BLOOD SPECIMEN Ordering Facility: [facility] Address: [address] [place] [address] Performed By: #### 2 276-4, 2132-01, 2283-12 #### [facility] CLIA [id number] [address] [place] [address] [place] Triglyceride [Mass/Vol] 74 mg/dL Normal <150 [facility] Comment on above: Order Comment: Speci men Type: BLOOD SPECIMEN Ordering Facility: [facility] Address: [address] [place] [address] Result Comment: <150 mg/dL, Normal 150-199 mg/dL, Borderline high 200-499 mg/dL, High >499 mg/dL, Very high Performed By: #### 2 276-4, 2132-01, 2283-12 #### [facility] CLIA [id number] [address] [place] [address] [place] NT-proBNP [facility] 09-04 Natriuretic peptide.B prohormone N-Terminal [Mass/Vol] 48 pg/mL Normal <125 [facility] Comment on above: Order Comment: Speci men Type: BLOOD SPECIMEN Ordering Facility: [facility] Address: [address] [place] [address] Performed By: #### 2 276-4, 2132-01, 2283-12 #### [facility] CLIA [id number] [address] [place] [address] [place] TSH SerPl-aCncon 09-05-2023 TSH Qn 6.440 m[IU]/L High 0.270-4.200 [facility] Comment on above: Order Comment: Specmurray bradshaw Type: BLOOD SPECIMEN Ordering Facility: [facility] Address: [address] [place] [address] Result Comment: If t he patient is , TSH reference range varies by gestational period: First Trimester (weeks 9-12): 0.180-2.990 mIU/L Second Trimester: 0.110-3.980 mIU/L Third Trimester: 0.480-4.710 mIU/L Seth Crews et al. A Practical Approach for the Verifications and Determination of Site- and Trimester-Specific Reference Intervals for Thyroid Function tests in . Thyroid, 2019:29:3:412-420. Zhang Ybarra, et al. 2017 Guidelines of the [place] Thyroid Association for the Diagnosis and Management of Thyroid Disease during and the . Thyroid, 2017:27:3:315-389. Performed By: #### 2 276-4, 2132-9, 2284-8 #### [facility] CLIA [id number] [address] [place] [address] [place] VITAMIN B1 (THIAMINE), WHOLE BLOODon 09-05-2023 Thiamine (Bld) [Moles/Vol] 179.2 nmol/L Normal 84.3-213.3 [facility] Comment on above: Order Comment: Laury bradshaw Type: BLOOD SPECIMEN Ordering Facility: [facility] Address: [address] [place] [address] Result Comment: This assay measures the concentration of thiamine diphosphate (TDP), the primary active form of vitamin B1. Approximately 90 percent of vitamin B1 present in whole blood is TDP. Thiamine and thiamine monophosphate, which comprise the remaining 10 percent, are not measured. This test was developed and its performance characteristics determined by [facility]'s Kevin Que [facility] [place] ([facility]). It has not been cleared or approved by the FDA. [facility] is regulated under CLIA as qualified to perform high-complexity testing. This test is used for clinical purposes. It should not be regarded as investigational or for research. Performed By: #### B 1WB #### [facility] CLIA [id number] [address] [place] [address] [place] Vit B12 SerPl-mCncon 09-04- 024 Cobalamin (Vitamin B12) [Mass/Vol] 612 pg/mL Normal 232-1245 [facility] Comment on above: Order Comment: Speci men Type: BLOOD SPECIMEN Ordering Facility: [facility] Address: [address] [place] [address] Performed By: #### 2 276-4, 2132-9, 2284-8 #### [facility] CLIA [id number] [address] [place] [address] [place] Glucose - FINGER STICKon Glucose [Mass/Vol] 5.4 mg/dL [employer] Other PAP ACOG PANEL 2: 30 to 65on 06-10-2022 . . Normal [facility] Comment on above: Result Comment: Perf ormed at: WB Performed By: #### 4 [id number] #### [facility] [address] [place] [address] Dr. Sachin Coates Age Gdln ACOG Testing 30-65 Normal [facility] Comment on above: Performed By: #### [id number] #### [facility] [address] [address] [address] Sachin Coates DIAGNOSIS: Comment Normal [facility] Comment on above: Result Comment: NEGA TIVE FOR INTRAEPITHELIAL LESION OR MALIGNANCY. CELLULAR CHANGES ASSOCIATED WITH INFLAMMATION ARE PRESENT. THIS SPECIMEN WAS RESCREENED PART OF OUR SHROUD LINE TIER PROGRAM. Performed at: WB Performed By: #### [id number] #### [facility] [address] [place] [address] Dr. Sachin Coates HPV Aptima Negative Normal Negative [facility] Comment on above: Result Comment: This nucleic acid amplification test detects fourteen high-risk HPV types (16,18,31,33,35,39,45,51,52,56,58,59,66,68) without differentiation. Performed at: =G Performed By: #### [id number] #### [facility] [address] [place] [address] Dr. Sachin Coates HPV Genotype Reflex Comment Normal [facility] Comment on above: Result Comment: Crit eria not met, HPV Genotype not performed. Performed at: WB Performed By: #### [id number] #### [facility] [address] [address] [address] Sachin Coates Methodology: Comment Normal [facility] Comment on above: Result Comment: This liquid based ThinPrep(R) pap test was screened with the use of an image guided system. Performed at: WB Performed By: #### [id number] #### [facility] [address] [place] [address] Dr. Sachin Coates Note: Comment Normal [facility] Comment on [...] Performed at: WB Performed By: #### [id number] #### [facility] [address] [place] [address] Dr. Sachin Coates Performed by: Comment Normal [facility] Comment on above: Result Comment: Peyton Beverly, Loom Setter (ASCP) Performed at: WB Performed By: #### [id number] #### [facility] [address] [place] [address] Dr. Sachin Coates QC reviewed by: Comment Normal [facility] Comment on above: Result Comment: Cielo Cochran, Supervisory Loom Setter (ASCP) Performed at: WB Performed By: #### [id number] #### [facility] [address] [place] [address] Dr. Sachin Coates Specimen adequacy: Comment Normal [facility] Comment on above: Result Comment: Sati sfactory for evaluation. Endocervical and/or squamous metaplastic cells (endocervical component) are present. Performed at: WB Performed By: #### [id number] #### [facility] [address] [address] [address] Sachin Coates COVID-19 SOFIAOrdered By: Dario To on 12-02-2021 SARS-CoV+SARS-CoV-2 (COVID-19) Ag IA.rapid Ql (Resp) Negative Negative [facility] Comment on above: This is a duplicate Zuleyma SARS Antigen (PAMELLA) result to be used for statistical tracking purpose only. No Panel InformationOrdered By: Ck To on 12-02-2021 SARS Antigen (LFIA) [facility] Chart Updateon 08-08-2020 Chart Update [...] Signatures Electronically signed by : Nickie Littlejohn APRN-MERON; Aug 08 2020 10:18AM EST (Author) Normal [facility] BOTTOM SCRUBBER - Procedure Visiton 0 07-10-2020 BOTTOM SCRUBBER - Procedure Visit Chief Complaint IUI Active [...] Touchworks ESTRADIOLon 07-08-2020 ESTRADIOL 186 pg/mL Normal [facility] Comment on above: Result Comment: Estr adiol measurement is performed using the Shruthi Juristat Access Sensitive Estradiol Immunoassay. Estradiol testing is performed using a different test methodology at [facility] than other [facility]. Direct result comparison should only be made within the same method. REF VALUES EARLY FOLLICULAR 22-115 MID FOLLICULAR 25-115 OVULATORY PEAK 32-517 MID LUTEAL 37-246 POSTMENOPAUSE <15- 25 MALE <15- 32 Performed By: #### G [facility] #### [facility] [address] [place] [address] Estradiol, Serumon 1 E2 [Mass/Vol] 186 pg/mL -Kareen an 310 IVF Work Phone: Comment on above: Estradiol measuremen t is performed using the Shruthi Juristat Access Sensitive Estradiol Immunoassay. Estradiol testing is performed using a different test methodology at [facility] than other [facility]. Direct result comparison should only be made within the same method.REF VALUESEARLY FOLLICULAR 22-115MID FOLLICULAR 25-115OVULATORY PEAK 32-517MID LUTEAL 37-246POSTMENOPAUSE <15- 25MALE <15- 32 LUTEINIZING HORMONEon 2020 LUTEINIZING HORMONE 9.5 IU/L Normal [facility] Comment on above: Result Comment: Lute inizing Hormone [LH] is performed using the Shruthi J Carlos Access Immunoassay. LH testing is performed using a different test methodology at [facility] than other [facility]. Direct result comparison should only be made within the same method. REF VALUES FOLLICULAR PHASE 1.5-10.0 MID-CYCLE 13.0-72.0 LUTEAL PHASE 0.5-13.0 MENOPAUSE 15.0-65.0 PREPUBERTY 0- 3.0 CHILDREN 0- 6.0 ADULT MALE 1.0- 9.0 Performed By: #### G [facility] #### [facility] [address] [place] [address] Luteinizing Hormone, Serumon 07-08-2020 Lutropin Qn 9.5 {IU/L} RU-HHJVK-Fnbx an 310 IVF Work Phone: Comment on above: Luteinizing Hormone [LH] is performed using the Shruthi Juristat Access Immunoassay. LH testing is performed using a different test methodology at [facility] than other [facility]. Direct result comparison should only be made within the same method.REF VALUESFOLLICULAR PHASE 1.5-10.0MID-CYCLE 13.0-72.0LUTEAL PHASE 0.5-13.0MENOPAUSE 15.0-65.0PREPUBERTY 0- 3.0CHILDREN 0- 6.0ADULT MALE 1.0- 9.0 TYPE + SCREENon 07-06-2020 ABO TYPE A Normal [facility] Comment on above: Performed By: #### T +S #### [facility] [address] [place] [address] RH TYPE Positive Normal [facility] Comment on above: Performed By: #### T +S #### [facility] [address] [place] [address] ESTRADIOLon 07-05-2020 ESTRADIOL 58 pg/mL Normal [facility] Comment on above: Result Comment: Estr adiol measurement is performed using the Shruthi Juristat Access Sensitive Estradiol Immunoassay. Estradiol testing is performed using a different test methodology at [facility] than other [facility]. Direct result comparison should only be made within the same method. REF VALUES EARLY FOLLICULAR 22-115 MID FOLLICULAR 25-115 OVULATORY PEAK 32-517 MID LUTEAL 37-246 POSTMENOPAUSE <15- 25 MALE <15- 32 Performed By: #### G [facility] #### [facility] [address] [place] [address] Estradiol, Serumon E2 [Mass/Vol] 58 pg/mL MG-OBGYN-Ri sm an 310 IVF Work Phone: Comment on above: Estradiol measuremen t is performed using the Shruthi Juristat Access Sensitive Estradiol Immunoassay. Estradiol testing is performed using a different test methodology at [facility] than other [facility]. Direct result comparison should only be made within the same method.REF VALUESEARLY FOLLICULAR 22-115MID FOLLICULAR 25-115OVULATORY PEAK 32-517MID LUTEAL 37-246POSTMENOPAUSE <15- 25MALE <15- 32 Hematologyon 07-05-2020 ABO group Nom (Bld) A MG-AERODYNAMIC CONSULTANT-Rism an 310 IVF Work Phone: Blood group antibody screen Ql Negative FX-KRGTO-Lcgo an 310 IVF Work Phone: Rh immune globulin screen (Bld) [Interp] Positive MG-OBGYN-R ism an 310 IVF Work Phone: LUTEINIZING HORMONEon 2020 LUTEINIZING HORMONE 9.2 IU/L Normal [facility] Comment on above: Result Comment: Lute inizing Hormone [LH] is performed using the Shruthi [place] Access Immunoassay. LH testing is performed using a different test methodology at [facility] than other [facility]. Direct result comparison should only be made within the same method. REF VALUES FOLLICULAR PHASE 1.5-10.0 MID-CYCLE 13.0-72.0 LUTEAL PHASE 0.5-13.0 MENOPAUSE 15.0-65.0 PREPUBERTY 0- 3.0 CHILDREN 0- 6.0 ADULT MALE 1.0- 9.0 Performed By: #### L H #### [facility] [address] [place] [address] Luteinizing Hormone, Serumon 07-05-2020 Lutropin Qn 9.2 {IU/L} WC-TZKDA-Azua an 310 IVF Work Phone: Comment on above: Luteinizing Hormone [LH] is performed using the Shruthi J Carlos Access Immunoassay. LH testing is performed using a different test methodology at [facility] than other [facility]. Direct result comparison should only be made within the same method.REF VALUESFOLLICULAR PHASE 1.5-10.0MID-CYCLE 13.0-72.0LUTEAL PHASE 0.5-13.0MENOPAUSE 15.0-65.0PREPUBERTY 0- 3.0CHILDREN 0- 6.0ADULT MALE 1.0- 9.0 BOTTOM SCRUBBER - Office Visiton 02-0 BOTTOM SCRUBBER - Office Visit Diagnoses/Problems Assessed Morbid obesity [...] MD Reproductive [facility]in[facility] [phone] [place] [phone] [place] 1 Amended By: Bayron Mccarty; Jun 19 2020 10:16 AM ESTProvider Mike Lazcano is a 30-year-old female who desires to [...] Bayron Mccarty MD Reproductive Endocrinology and Infertility [facility] [phone] [place] [phone] [place] Appointment Duration:. 25 minutes; greater than half of the time was spent on counseling. 1 Amended By: Bayron Mccarty; Jun 19 2020 10:16 AM ESTChief Complaint follow up History of Present Ehxttub1806/19/2020 9:30AM JALEESA ARRIETA , 30 year is contacted for an (audio-visual, or audio only) Telehealth visit. Today's visit was provided through telemedicine conferencing: Using [employer] platform. Consent: The concept of telemedicine? has [...] is a telehealth appointment Results/Data HCG, Beta Nukcsxrmvgut56Myu2001 11:58AMBayron Mccarty Test NameResultFlagReference HCG, Beta Quantitative<2 [...] HCG measurement is performed using the Shruthi Juristat Access Immunoassay which detects intact HCG and free beta HCG subunit. This test is not indicated for use as a tumor marker. HCG testing is performed using a different test methodology at [facility] than other [facility]. Direct result comparison should only be made within the same method. REF VALUES NON FEMALE <5 MALES <5 Progesterone, [id number] 11:58AMBayron Mccarty Test NameResultFlagReference Progesterone, Serum10.5 ng/mL REF VALUES MALE <0.3- 1.2 FOLLICULAR PHASE <0.3- 1.4 LUTEAL PHASE 3.3-25.6 MID-LUTEAL PHASE 4.4-28.0 POSTMENOPAUSAL <0.3- 0.7 FEMALES: 1ST TRIMESTER 11.2- 90.0 2ND TRIMESTER 25.6- 89.4 3RD TRIMESTER 48.4-422.5 . Patients receiving DHEA-S supplements may show false elevation of progesterone for results near 1.0 ng/mL. Contact laboratory at [phone] if alternative testing is needed. CMV IgG and IgM [id number] 11:58AMBayron Mccarty Test NameResultFlagReference CMV IgG AntibodyREACTIVEASee Below Reference Range: NONREACTIVE CMV IGM [id number] 11:58Bayron Stroud Test NameResultFlagReference CMV IGM AB<30.00 AU/mL REFERENCE [...] testing in two or more weeks. Xray Ojlrizucflkosndevba61Nix 2020 12:00AMBayron Mccarty [Mar 28, 2020 9:43AM Bayron Mccarty] Reason: Unspecified for Xray Hysterosalpingogram Test NameResultFlagReference Xray Hysterosalpingogram Please click on the link to view the study images Anti Mullerian [id number] 12:03PMBayron Mccarty Test NameResultFlagReference Anti Mullerian Hormone6.36 ng/mL For assays employing antibodies, the possibility exists for interference by heterophile antibodies in the samples.1 1.Oswald Crews. Interferences in Immunoassays - still a threat. Clin. Chem. 2000; 46: 7130-1498. This test was developed and its performance characteristics determined by [employer]. It has not been cleared or approved by the Food and Drug Administration. Reference Range: Females 26 - 30y: 1.03 - 11.10 Median 4.20 AMH concentrations of >= 1.06 ng/mL is correlated with a better response to ovarian stimulation, produced more retrievable oocytes and higher odds of live according to Gleicher et al. Fertility and Sterility. 2010: 94:3255-4865. The current AMH test method correlates with [...] exclude an AMH-secreting ovarian tumor. Rubella IgG Fctwsguh59Vjt0969 12:03PMBayron Mccarty Test NameResultFlagReference Rubella IgG AntibodyPOSITIVE [...] TSH WITH REFLEX TO FREE T4 IF [id number] 12:03PMBibiana Bayron Test NameResultFlagReference Thyroid Stimulating Hormone, Serum2.17 mIU/LSee Below Reference Range: 0.44 - 3.98 TSH testing is performed using different testing methodology at [facility] than at other [facility]. Direct result comparisons should only be made within the same method. Varicella Zoster IgG Tdfjjcga58Pnq0010 12:03PMYuniorcollin Bayron Test NameResultFlagReference Varicella Zoster IgG AntibodyNegativeNEGATIVE [...] altered results in serological assays. Vitamin D 25-Giykukn86Meo5679 12:03PMFinBayron polanco Test NameResultFlagReference Vitamin D 25-Hydroxy, Level17 ng/mLA . DEFICIENCY: < 20 NG/ML INSUFFICIENCY: 20-29 NG/ML SUFFICIENCY: 30-100 NG/ML THIS ASSAY ACCURATELY QUANTIFIES THE SUM OF VITAMIN D3, 25-HYDROXY AND VIT D2,25-HYDROXY. { 17-Hydroxyprogesterone, [id number] 12:03PMYuniorBayron polanco Test NameResultFlagReference 17-Hydroxyprogesterone, Serum33 ng/dL [...] Endocrinol Metab. 1991;73:674-686; J Clin Endocrinol Metab. 1989;69;4260-5492; J Clin Endocrinol Metab. 1994;78:226-270. Pediatr Res 1988;23:525-529. MedLinePlus (accessed 10/25/13). This test was developed and its analytical performance characteristics have been determined by [employer], [place]. It has not been cleared or approved by the U.S. Food and Drug Administration. This assay has been validated pursuant to the CLIA regulations and is used for clinical purposes. DHEA Sulfate, [id number] 12:03PMYuniorBayron polanco Test NameResultFlagReference DHEA Sulfate, Yvnep767 ug/dL65 - 395 MATURITY-BASED REFERENCE RANGES: PUBERTAL [...] laboratory for further information. Testosterone Free + [id number] 12:03PMBayron Mccarty Test NameResultFlagReference Testosterone, Total63 ng/dLH2-45 For additional information, please refer to http://education.[employer]faq/ TotalTestosteroneLCMSMSF AQ165 (This link is being provided for informational/ educational purposes only.) This test was developed and its analytical performance characteristics have been determined by [employer] [place], [place]. It has not been cleared or approved by the U.S. Food and Drug Administration. This assay has been validated pursuant to the CLIA regulations and is used for clinical purposes. Testosterone, Free Serum8.8 pg/mLH0.1-6.4 This test was developed and its analytical performance characteristics have been determined by [employer] [place]. It has not been cleared or approved by the U.S. Food and Drug Administration. This assay has been validated pursuant to the CLIA regulations and is used for clinical purposes. Hemoglobin [id number] 12:03PMBayron Mccarty Test NameResultFlagReference Hemoglobin A1C, Level5.5 % Diagnosis of Diabetes-Adults Non-Diabetic: < or = 5.6% Increased risk for developing diabetes: 5.7-6.4% Diagnostic of diabetes: > or = 6.5% . Monitoring of Diabetes Age (y) Therapeutic Goal (%) Adults: >18 <7.0 Pediatrics: 13-18 <7.5 7-12 <8.0 0- 6 7.5-8.5 [place] [employer]. Diabetes Care 33(S1), May 2009. Estimated Average Ixyeswl823 MG/DL GC + Chlamydia By Amplified [id number] 12:03PMBayron Mccarty Test NameResultFlagReference N.GONORRHEA,AMPLIFIEDNEG ATIVENegative SOURCE: Urine Chlamydia Trach, AmplifiedNEGATIVENegativ e Hepatitis B Surface [id number] 12:03PMBayron Mccarty Test NameResultFlagReference Hep.B Surface AgNONREACTIVESee Below Reference Range: NONREACTIVE Biotin interference may cause falsely decreased results. Patients taking a Biotin dose of up to 5 mg/day should refrain from taking Biotin for 24 hours before sample collection. Providers may contact their local laboratory for further information. Hepatitis C Antibody [id number] 12:03PMBayron Mccarty Test NameResultFlagReference Hepatitis C-AntibodyNONREACTIVESee Below Reference Range: NONREACTIVE Results from patients taking biotin supplements or receiving high-dose biotin therapy should be interpreted with caution due to possible interference with this test. Providers may contact their local laboratory for further information. HIV 1/2 ANTIGEN/ANTIBODY SCREEN WITH REFLEX TO [id number] 12:03PMBayron Mccarty Test NameResultFlagReference HIV 1/2 AG/AB SCREENNONREACTIVESee Below Reference Range: NONREACTIVE HIV Ag/Ab screen is performed using the Siemens [employer]ellDelivery Hero HIV Ag/Ab Combo assay which detects the presence of HIV p24 antigen as well as antibodies to HIV-1 (Group M and O) and HIV-2. SYPHILIS SCREENING WITH [id number] 12:03PMBayron Mccarty Test NameResultFlagReference SYPHILIS TOTAL ANTIBODYNONREACTIVESee [...] ABon 04-20-2020 CMV IGM AB <30.00 Normal [facility] Comment on above: Result Comment: REFE RENCE [...] weeks. Performed By: #### C MVM2 #### [facility] [address] [place] [address] CMV IGG AND IGM ABon 020 CMV IGG AB REACTIVE Abnormal NONREACTIVE [facility] Comment on above: Performed By: #### C MV2 #### [facility] [address] [place] [address] PROGESTERONEon 04-16-2020 PROGESTERONE 10.5 ng/mL Normal [facility] Comment on above: Result Comment: REF VALUES MALE <0.3- 1.2 FOLLICULAR PHASE <0.3- 1.4 LUTEAL PHASE 3.3-25.6 MID-LUTEAL PHASE 4.4-28.0 POSTMENOPAUSAL <0.3- 0.7 FEMALES: 1ST TRIMESTER 11.2- 90.0 2ND TRIMESTER 25.6- 89.4 3RD TRIMESTER 48.4-422.5 . Patients receiving DHEA-S supplements may show false elevation of progesterone for results near 1.0 ng/mL. Contact laboratory at [phone] if alternative testing is needed. Performed By: #### P BOBBY #### [facility] [address] [place] [address] HCG,BETA-QUANTITATIVEon HCG,BETA-QUANTITATIVE <2 Normal [facility] Comment on above: Result Comment: Low- level [...] HCG measurement is performed using the Shruthi [place] Access Immunoassay which detects intact HCG and free beta HCG subunit. This test is not indicated for use as a tumor marker. HCG testing is performed using a different test methodology at [facility] than other [facility]. Direct result comparison should only be made within the same method. REF VALUES NON FEMALE <5 MALES <5 Performed By: #### H CGQU #### [facility] [address] [id number] BOTTOM SCRUBBER - Office Visiton BOTTOM SCRUBBER - Office Visit Chief Complaint An interactive [...] test results. Roby JEWELL. History of Present Juizhvb9204/14/2020 9:30AM JALEESA ARRIETA , 30 year is contacted for an (audio-visual, or audio only) Telehealth visit. Today's visit was provided through telemedicine conferencing: Using [employer] platform. Consent: The concept of telemedicine? has [...] surgically absent. Seen by Dr. Maradiaga with [facility], please see his recommendations. Patient was found [...] 25 MCG (1000 UT) Oral Tablet; Therapy: [id number] to Recorded Dispense: 0 Days ; #: Sufficient Tablet; Refill: 0; KEVIN = N; Record; Last Updated By: Breezy Jasso; 2020 1:15:24 PM Vitals Vital Signs Recorded: 40Nph7070 09:08AM Height5 ft 6 in Mfztlt434 lb BMI Gjnvapaugx84.81 BSA Calculated2.34 ZZE26Ovb5585 Gravida1 Para0 Pain Scale0 Physical Exam This is a telehealth appointment Results/Data Anti Mullerian [id number] 12:03PMBayron Mccarty Test NameResultFlagReference Anti Mullerian Hormone6.36 ng/mL For assays employing antibodies, the possibility exists for interference by heterophile antibodies in the samples.1 1.Oswald Crews. Interferences in Immunoassays - still a threat. Clin. Chem. 2000; 46: 0089-7769. This test was developed and its performance characteristics determined by [employer]. It has not been cleared or approved by the Food and Drug Administration. Reference Range: Females 26 - 30y: 1.03 - 11.10 Median 4.20 AMH concentrations of >= 1.06 ng/mL is correlated with a better response to ovarian stimulation, produced more retrievable oocytes and higher odds of live according to Carey et al. Fertility and Sterility. 2010: 94:9679-0993. The current AMH test method correlates with [...] exclude an AMH-secreting ovarian tumor. Anti Mullerian Zmmmssi22Fsz9568 12:03PMBayron Mccarty Test NameResultFlagReference Anti Mullerian Hormone6.36 ng/mL For assays employing antibodies, the possibility exists for interference by heterophile antibodies in the samples.1 1.Oswald Brunner Interferences in Immunoassays - still a threat. Clin. Chem. 2000; 46: 1340-1750. This test was developed and its performance characteristics determined by [employer]. It has not been cleared or approved by the Food and Drug Administration. Reference Range: Females 26 - 30y: 1.03 - 11.10 Median 4.20 AMH concentrations of >= 1.06 ng/mL is correlated with a better response to ovarian stimulation, produced more retrievable oocytes and higher odds of live according to Michaeler et al. Fertility and Sterility. 2010: 94:5377-5249. The current AMH test method correlates with [...] exclude an AMH-secreting ovarian tumor. Rubella IgG Xdvlkyrh85Sln0221 12:03PMBayron Mccarty Test NameResultFlagReference Rubella IgG AntibodyPOSITIVE [...] TSH WITH REFLEX TO FREE T4 IF [id number] 12:03PMBayron Mccarty Test NameResultFlagReference Thyroid Stimulating Hormone, Serum2.17 mIU/LSee Below Reference Range: 0.44 - 3.98 TSH testing is performed using different testing methodology at [facility] than at other [facility]. Direct result comparisons should only be made within the same method. Varicella Zoster IgG Yexiirre44Ygz5395 12:03PMBayron Mccarty Test NameResultFlagReference Varicella Zoster IgG [...] altered results in serological assays. Vitamin D 25-Mpsmaye82Nle0947 12:03PMBayron Mccarty Test NameResultFlagReference Vitamin D 25-Hydroxy, Level17 ng/mLA . DEFICIENCY: < 20 NG/ML INSUFFICIENCY: 20-29 NG/ML SUFFICIENCY: 30-100 NG/ML THIS ASSAY ACCURATELY QUANTIFIES THE SUM OF VITAMIN D3, 25-HYDROXY AND VIT D2,25-HYDROXY. { 17-Hydroxyprogesterone, [id number] 12:03Bayron Silva Test NameResultFlagReference 17-Hydroxyprogesterone, Serum33 ng/dL Unable to [...] Endocrinol Metab. 1991;73:674-686; J Clin Endocrinol Metab. 1989;69;1095-9067; J Clin Endocrinol Metab. 1994;78:226-270. Pediatr Res 1988;23:525-529. MedLinePlus (accessed 10/25/13). This test was developed and its analytical performance characteristics have been determined by [employer] [place], [place]. It has not been cleared or approved by the U.S. Food and Drug Administration. This assay has been validated pursuant to the CLIA regulations and is used for clinical purposes. DHEA Sulfate, [id number] 12:03PMBayron Mccarty Test NameResultFlagReference DHEA Sulfate, Nbjhn473 ug/dL65 - 395 MATURITY-BASED REFERENCE RANGES: PUBERTAL [...] laboratory for further information. Testosterone Free + [id number] 12:03PMBayron Mccarty Test NameResultFlagReference Testosterone, Total63 ng/dLH2-45 For additional information, please refer to http://education.[employer]faq/ TotalTestosteroneLCMSMSF AQ165 (This link is being provided for informational/ educational purposes only.) This test was developed and its analytical performance characteristics have been determined by [employer] [place], [place]. It has not been cleared or approved by the U.S. Food and Drug Administration. This assay has been validated pursuant to the CLIA regulations and is used for clinical purposes. Testosterone, Free Serum8.8 pg/mLH0.1-6.4 This test was developed and its analytical performance characteristics have been determined by [employer], [place]. It has not been cleared or approved by the U.S. Food and Drug Administration. This assay has been validated pursuant to the CLIA regulations and is used for clinical purposes. Hemoglobin [id number] 12:03PMBayron Mccarty Test NameResultFlagReference Hemoglobin A1C, Level5.5 % Diagnosis of Diabetes-Adults Non-Diabetic: < or = 5.6% Increased risk for developing diabetes: 5.7-6.4% Diagnostic of diabetes: > or = 6.5% . Monitoring of Diabetes Age (y) Therapeutic Goal (%) Adults: >18 <7.0 Pediatrics: 13-18 <7.5 7-12 <8.0 0- 6 7.5-8.5 [place] [employer]. Diabetes Care 33(S1), May 2009. Estimated Average Rlfojtq767 MG/DL GC + Chlamydia By Amplified Haswrztke63Hwn3725 12:03PMBayron Mccarty Test NameResultFlagReference N.GONORRHEA,AMPLIFIEDNEG ATIVENegative SOURCE: Urine Chlamydia Trach, AmplifiedNEGATIVENegativ e Hepatitis B Surface Egjqirn64Fjd4602 12:03PMBayron Mccarty NameYolandaultReference Hep.B Surface AgNONREACTIVESee Below Reference Range: NONREACTIVE Biotin interference may cause falsely decreased results. Patients taking a Biotin dose of up to 5 mg/day should refrain from taking Biotin for 24 hours before sample collection. Providers may contact their local laboratory for further information. Hepatitis C Antibody Ljpm45Gho6814 12:03PMBayron Mccarty NameResultRefereoneliae Hepatitis C-AntibodyNONREACTIVESee Below Reference Range: NONREACTIVE Results from patients taking biotin supplements or receiving high-dose biotin therapy should be interpreted with caution due to possible interference with this test. Providers may contact their local laboratory for further information. HIV 1/2 ANTIGEN/ANTIBODY SCREEN WITH REFLEX TO [id number] 12:03PMBayron Mccarty NameResultFlagReference HIV 1/2 AG/AB SCREENNONREACTIVESee Below Reference Range: NONREACTIVE HIV Ag/Ab screen is performed using the Siemens SEDLinellDelivery Hero HIV Ag/Ab Combo assay which detects the presence of HIV p24 antigen as well as antibodies to HIV-1 (Group M and O) and HIV-2. SYPHILIS SCREENING WITH [id number] 12:03PMBibiana Bayron Test NameResultFlagReference SYPHILIS TOTAL ANTIBODYNONREACTIVESee Below SOURCE: Reference Range: NONREACTIVE No significant level of Treponema pallidum antibody detected. Repeat testing in 2 to 4 weeks may be considered if early infection or incubating syphilis infection is suspected. Diagnoses/Problems Irregular menses (626.4) (N92.6) Morbid obesity (278.01) (E66.01) Orders HCG, Beta Quantitative; Status:Active; Requested for:59Kbu2933; Perform:Lab Services - Lab To Draw (Blood Test); Due:13Jul2020;Ordered; For:Irregular menses; Ordered By:Bayron Mccarty; Progesterone, Serum; Status:Active; Requested for:13Hql5285; Perform:Lab Services - Lab To Draw (Blood Test); Due:33Pwy1873;Ordered; For:Irregular menses; Ordered By:Bayron Mccarty; Provider Impressions [...] [facility] [phone] [place] [phone] [place] Appointment Duration:. 25 minutes; greater than [...] MD [facility] [phone] [place] [phone] [place] 1 Amended By: Bayron Mccarty; Apr 14 2020 4:50 PM ESTSignatures Electronically signed by : Bayron Mccarty MD; Apr 14 2020 4:51PM EST (Author) Normal [facility] BOTTOM SCRUBBER - Procedure Visiton 1 05-28-2019 BOTTOM SCRUBBER - Procedure Visit Chief Complaint pt presents [...] 1 CAPSULE EVERY 12 HOURS DAILY; Therapy: 29Wlk7071 to (Evaluate:18Hgg3101) Requested for: 54Pbv8146; Last Rx:25Qcg5165 Ordered Rx By: Bayron Mccarty; Dispense: 5 Days ; #:10 Capsule; Refill: 0;For: Fertility testing; KEVIN = N; Verified Transmission to [place] [address]; Msg to Pharmacy: start medication the night before her procedure; Last Updated By: Elham WoowUpUmaSaaSAssurance; 01/24/2020 12:08:27 PM Vitamin D 25 MCG (1000 UT) Oral Tablet; Therapy: 57Avt7276 to Recorded Dispense: 0 Days ; #: [...] Mar 28 2020 4:10PM EST (Author) Normal [facility] BOTTOM SCRUBBER - Office Visiton 11-0 BOTTOM SCRUBBER - Office Visit Chief Complaint The patient [...] is considering single parent procreation. 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 Ng in [place]. Active Problems Female infertility (628.9) (N97.9) Fertility [...] 1 CAPSULE EVERY 12 HOURS DAILY; Therapy: 22Xal7447 to (Evaluate:37Cjx8531) Requested for: 53Tjw3080; Last Rx:24Wny5085 Ordered Rx By: Bayron Mccarty; Dispense: 5 Days ; #:10 Capsule; Refill: 0; For: Fertility testing; KEVIN = N; Verified Transmission to [place] [address]; Msg to Pharmacy: start medication the night before her procedure; Last Updated By: [employer]; 01/24/2020 12:08:27 PM Vitamin D 25 MCG (1000 UT) Oral Tablet; Therapy: 16Vfd9054 to Recorded Dispense: 0 Days ; #: Sufficient Tablet; Refill: 0; KEVIN = N; Record; Last Updated By: Breezy Jasso; 2020 1:15:24 PM Vitals Vital Signs Recorded: 13Mar2020 01:08PM Heart Rate96 Zeejyujz145 Hyqtlnmut42 Height5 ft 6 in Wercmx205 lb BMI Rktjsbfrxz21.91 BSA Calculated2.39 Tobacco Useb) No Fall Screeninga) No falls within the last year [id number] Gravida1 Para0 Pain Scale0 Diagnoses/Problems Morbid obesity [...] consultation of which greater than 50% was atmg-lh-nlxm counseling. Weight loss prior to conception is [...] MD; Jun 12 2020 4:50PM EST Normal [facility] ANTI MULLERIAN HORMONEon ANTI MULLERIAN HORMONE 6.36 ng/mL Normal [facility] Comment on above: Result Comment: For assays employing antibodies, the possibility exists for interference by heterophile antibodies in the samples.1 1.Oswald Crews. Interferences in Immunoassays - still a threat. Clin. Chem. 2000; 46: 0299-2964. This test was developed and its performance characteristics determined by [employer]. It has not been cleared or approved by the Food and Drug Administration. Reference Range: Females 26 - 30y: 1.03 - 11.10 Median 4.20 AMH concentrations of >= 1.06 ng/mL is correlated with a better response to ovarian stimulation, produced more retrievable oocytes and higher odds of live according to Carey et al. Fertility and Sterility. 2010: 94:3558-6826. The current AMH test method correlates with [...] ovarian tumor. Performed By: #### A #### [employer] [address] [place] [address] [id number] 17-HYDROXYPROGESTERONEon 17-HYDROXYPROGESTERON E 33 ng/dL Normal [facility] Comment on above: Result Comment: [...] Endocrinol Metab. 1991;73:674-686; J Clin Endocrinol Metab. 1989;69;0105-1886; J Clin Endocrinol Metab. 1994;78:226-270. Pediatr Res 1988;23:525-529. MedLinePlus (accessed 10/25/13). This test was developed and its analytical performance characteristics have been determined by [employer] [place], [place]. It has not been cleared or approved by the U.S. Food and Drug Administration. This assay has been validated pursuant to the CLIA regulations and is used for clinical purposes. Performed By: #### 1 7OHP #### [facility] [address] [place] [address] TESTOST,FREE AND TOTALon TESTOSTERONE TOT.LC/MS/MS 63 ng/dL High 2-45 [facility] Comment on above: Result Comment: For additional information, please refer to http://education.RocketBux/faq/ GbamxBmatxyklccblTQRPMEZPS808 (This link is being provided for informational/ educational purposes only.) This test was developed and its analytical performance characteristics have been determined by [employer] [place], [place]. It has not been cleared or approved by the U.S. Food and Drug Administration. This assay has been validated pursuant to the CLIA regulations and is used for clinical purposes. Performed By: #### G [facility] #### [facility] [address] [place] [address] TESTOSTERONE,FREE 8.8 pg/mL High 0.1-6.4 [facility] Comment on above: Result Comment: This test was developed and its analytical performance characteristics have been determined by [employer] [place], [place]. It has not been cleared or approved by the U.S. Food and Drug Administration. This assay has been validated pursuant to the CLIA regulations and is used for clinical purposes. Performed By: #### G [facility] #### [facility] [address] [place] [address] DHEA SULFATEon 01-25-2020 DHEA SULFATE 214 ug/dL Normal 65 - 395 [facility] Comment on above: Result Comment: JOANNA MALDONADO-BASED REFERENCE RANGES: PUBERTAL (JOHN) STAGE MALE FEMALE [...] information. Performed By: #### G [facility] #### [facility] [address] [place] [address] GC + CHLAMYDIA BY AMPLIFIED DETECTIONon 01-25-2020 CHLAMYDIA TRACH.,AMPLIFIED Negative Normal Negative [facility] Comment on above: Performed By: #### G CCHA #### [facility] [address] [place] [address] N.GONORRHEA,AMPLIFIED Negative Normal Negative [facility] Comment on above: Performed By: #### G CCHA #### [facility] [address] [place] [address] HEPATITIS B SURFACE AGon HEP.B SURFACE AG NONREACTIVE Normal NONREACTIVE [facility] Comment on above: Result Comment: Biot in interference may cause falsely decreased results. Patients taking a Biotin dose of up to 5 mg/day should refrain from taking Biotin for 24 hours before sample collection. Providers may contact their local laboratory for further information. Performed By: #### G [facility] #### [facility] [address] [place], [place] HEPATITIS C ABon 01-25-2020 HEPATITIS C AB NONREACTIVE Normal NONREACTIVE [facility] Comment on above: Result Comment: Resu lts from patients taking biotin supplements or receiving high-dose biotin therapy should be interpreted with caution due to possible interference with this test. Providers may contact their local laboratory for further information. Performed By: #### H CVAB #### [facility] [address] [place], [place] HIV ANTIGEN/ANTIBODY SCREENo n 01-25-2020 HIV AG/AB SCREEN NONREACTIVE Normal NONREACTIVE [facility] Comment on above: Result Comment: HIV Ag/Ab screen is performed using the Siemens SEDLinellDelivery Hero HIV Ag/Ab Combo assay which detects the presence of HIV p24 antigen as well as antibodies to HIV-1 (Group M and O) and HIV-2. Performed By: #### G CCHA #### [facility] [address] [place], [place] RUBELLA IGG ABon 01-25-2020 RUBELLA IGG AB Positive Normal [facility] Comment on above: Result [...] assays. Performed By: #### R UBIG #### [facility] [address] [place] [id number] SYPHILIS SCREENING WITH REFL EXon 01-25-2020 SYPHILIS TOTAL AB NONREACTIVE Normal NONREACTIVE [facility] Comment on above: Result Comment: No s ignificant level of Treponema pallidum antibody detected. Repeat testing in 2 to 4 weeks may be considered if early infection or incubating syphilis infection is suspected. Performed By: #### S YPHR #### [facility] [address] [place] [address] TSH WITH REFLEX TO FREE T4 I F ABNORMALon 01-25-2020 TSH Qn 2.17 m[IU]/L Normal 0.44 - 3.98 [facility] [place] Comment on above: Result Comment: TSH testing is performed using different testing methodology at [facility] than at other [facility]. Direct result comparisons should only be made within the same method. Performed By: #### G CCHA #### [facility] [address] [place] [address] VARICELLA ZOSTER IGG ABon VARICELLA ZOSTER IGG AB Negative Normal NEGATIVE [facility] Comment on above: Result Comment: [...] assays. Performed By: #### V ARZG #### [facility] [address] [place] [address] VITAMIN D, 25-HYDROXYon 01-10 VITAMIN D, 25-HYDROXY 17 ng/mL Abnormal [facility] Comment on above: Result Comment: . DEFICIENCY: < 20 NG/ML INSUFFICIENCY: 20-29 NG/ML SUFFICIENCY: 30-100 NG/ML THIS ASSAY ACCURATELY QUANTIFIES THE SUM OF VITAMIN D3, 25-HYDROXY AND VIT D2,25-HYDROXY. { Performed By: #### G [facility] #### [facility] [address] [place] [address] GC + CHLAMYDIA BY AMPLIFIED DETECTIONon 01-24-2020 Lab Specimen Source Urine Normal [facility] Comment on above: Performed By: #### G [facility] #### [facility] [address] [place] [address] HEMOGLOBIN A1Con 01-24-2020 HbA1c (Bld) [Mass fraction] 5.5 % Normal [facility] Comment on above: Result Comment: Diag nosis of Diabetes-Adults Non-Diabetic: < or = 5.6% Increased risk for developing diabetes: 5.7-6.4% Diagnostic of diabetes: > or = 6.5% . Monitoring of Diabetes Age (y) Therapeutic Goal (%) Adults: >18 <7.0 Pediatrics: 13-18 <7.5 7-12 <8.0 0- 6 7.5-8.5 [place] [employer]. Diabetes Care 33(S1), May 2009. Performed By: #### H BA1E #### [facility] [address] [place] [address] HbA1c (Bld) [Mass fraction] 111 MG/DL Normal [facility] Comment on above: Performed By: #### H BA1E #### [facility] [address] [place] [address] BOTTOM SCRUBBER - Office Visiton 01-10 BOTTOM SCRUBBER - Office Visit Chief Complaint 29 year [...] was treated with laparoscopic left salpingectomy in [facility]. 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: Yes, remote history of gonorrhea [...] PM Vitals Vital Signs Recorded: 24Jan2020 11:13AM Jvvtobginlg44.7 F Heart Ddrc545 Xkwfvrvl007 Nvjrrcisk26 Height5 ft 6 in Lurckb448 lb BMI Hewqskkocw41.13 BSA Calculated2.35 Tobacco Useb) No Fall Screeninga) No falls within the last year [id number] Gravida1 Para0 Pain Scale0 Diagnoses/Problems Female infertility (628.9) (N97.9) Fertility testing (V26.21) (Z31.41) Morbid obesity (278.01) (E66.01) Irregular menses (626.4) (N92.6) Screening for STD (sexually transmitted disease) (V74.5) (Z11.3) *Orders Anti Mullerian Hormone; Status:Active; Requested for:24Jan2020; Perform:Lab Services - Lab To Draw (Non-Blood Test); Due:23Jym1677;Ordered; For:Female infertility, Fertility testing, Irregular menses, Morbid obesity; Ordered By:Bayron Mccarty; Start: Doxycycline Monohydrate 100 MG Oral Capsule; TAKE 1 CAPSULE EVERY 12 HOURS DAILY Rx By: Bayron Mccarty; Dispense: 5 Days ; #:10 Capsule; Refill: 0; For: Fertility testing; KEVIN = N; Verified Transmission to [place] [address]; Msg to Pharmacy: start medication the night before her procedure; Last Updated By: Cindi Lizarraga; 01/24/2020 12:08:27 PM Maternal Medicine Referral Evaluation and Treatment Evaluate AND Treat Status: Hold For - Scheduling Requested for: 24Jan2020 Ordered; For: Morbid obesity; Ordered By: Bayron cMcarty Performed: Due: 98Riq7981 17-Hydroxyprogesterone, Serum; Status:Active; Requested for:67Kbz5093; Perform:Lab Services - Lab To Draw (Blood Test); Due:38Asz5585;Ordered; For:Screening for STD (sexually transmitted disease); Ordered By:Bayron Mccarty; DHEA Sulfate, Serum; Status:Active; Requested for:13Ayu5208; Perform:Lab Services - Lab To Draw (Blood Test); Due:18Kro2156;Ordered; For:Screening for STD (sexually transmitted disease); Ordered By:Bayron Mccarty; Hemoglobin A1C; Status:Active; Requested for:47Xxo9638; Perform:Lab Services - Lab To Draw (Blood Test); Due:85Xkn5170;Ordered; For:Screening for STD (sexually transmitted disease); Ordered By:Bayron Mccarty; Rubella IgG Antibody; Status:Active; Requested for:30Mcl3928; Perform:Lab Services - Lab To Draw (Blood Test); Due:96Fgo0969;Ordered; For:Screening for STD (sexually transmitted disease); Ordered By:Bayron Mccarty; Testosterone Free + Total; Status:Active; Requested for:64Ewy4550; Perform:Lab Services - Lab To Draw (Blood Test); Due:02Vru6381;Ordered; For:Screening for STD (sexually transmitted disease); Ordered By:Bayron Mccarty; TSH WITH REFLEX TO FREE T4 IF ABNORMAL; Status:Active; Requested for:24Jan2020; Perform:Lab Services - Lab To Draw (Blood Test); Due:15Nrj2140;Ordered; For:Screening for STD (sexually transmitted disease); Ordered By:Bayron Mccarty; Ultrasound Pelvis Transvaginal; Status:Hold For - Scheduling; Requested for:24Jan2020; Perform:[facility]; Order Comments:will call with menses to schedule; Due:87Xlh5690;Ordered; For:Screening for STD (sexually transmitted disease); Ordered By:Bayron Mccarty; Radiologist to Determine Optimal Study : Y What are the patient's signs and symptoms? : fert testing Varicella Zoster IgG Antibody; Status:Active; Requested for:74Pem1040; Perform:Lab Services - Lab To Draw (Blood Test); Due:22Lqj4706;Ordered; For:Screening for STD (sexually transmitted disease); Ordered By:Bayron Mccarty; Vitamin D 25-Hydroxy; Status:Active; Requested for:27Rdb6651; Perform:Lab Services - Lab To Draw (Blood Test); Due:79Lhd5783;Ordered; For:Screening for STD (sexually transmitted disease); Ordered By:Bayron Mccarty; Xray Hysterosalpingogram; Status:Hold For - Scheduling; Requested for:32Zvo7615; Perform:[facility]; Order Comments:will call with menses to schedule. schedule between CD5-12. start doxycycline night prior to procedure; Due:81Qzn8432;Ordered; For:Screening for STD (sexually transmitted disease); Ordered By:Bayron Mccarty; Radiologist to Determine Optimal Study : Y What are the patient's signs and symptoms? : fert testing Tobacco Use Screening; Status:Complete; Done: 61Pun8459 Perform:Not Applicable;Ordered; For:SocHx: Never a smoker; Ordered [...] sent to her home pharmacy ([facility] in [place]) [ ] Day 3 FSH, LH, E2 [x] AMH [x] TSH [x] Prolactin [x] Testosterone, DHEAS [x] HgA1C [x] STD screening [x ] Preconceptual screening including Rubella,Varicella, Blood type [ ] Genetic Screen with [facility] - will consider [ ] Take vitamins [x] Return to see DIRECTOR OF HEMOPHILIA after workup complete to discuss management plan [...] REFL EXon 01-24-2020 Lab Specimen Source Normal [facility] Comment on above: Performed By: #### S YPHR #### [facility] [address] [place] [address] Performed By: #### Jovany ARZG #### [facility] [address] [place] [address] Performed By: #### R UBIG #### [facility] [address] [place] [address] Vital Signs Date Time Vital Sign Value Performing Clinician Facility 04-22-2024 09:51-0500 Body mass index (BMI) [Ratio] 49.45 kg/m2 [employer] Work Phone: [facility] 04-22-2024 09:51-0500 Body weight 138.98 kg Tacho Shon DO Work Phone: [facility] 04-22-2024 09:51-0500 Diastolic blood pressure 80 mm[Hg] Tacho Shon DO Work Phone: [facility] 04-22-2024 09:51-0500 Systolic blood pressure 130 mm[Hg] Tacho Shon DO Work Phone: [facility] 04-06-2024 14:10-0500 Body mass index (BMI) [Ratio] 48.58 kg/m2 Mena Clanton PA Work Phone: [facility] 04-06-2024 14:10-0500 Body weight 136.53 kg Mena Clanton PA Work Phone: [facility] 04-06-2024 14:10-0500 Diastolic blood pressure 80 mm[Hg] Mena Marissa PA Work Phone: [facility] 04-06-2024 14:10-0500 Systolic blood pressure 128 mm[Hg] Mena Clanton PA Work Phone: [facility] 03-22-2024 14:14-0500 Body mass index (BMI) [Ratio] 48.92 kg/m2 Tacho Shon DO Work Phone: [facility] 03-22-2024 14:14-0500 Body weight 137.49 kg Tacho Shon DO Work Phone: [facility] 03-22-2024 14:14-0500 Diastolic blood pressure 84 mm[Hg] Tacho Shon DO Work Phone: [facility] 03-22-2024 14:14-0500 Systolic blood pressure 126 mm[Hg] Tacho Shon DO Work Phone: [facility] 03-05-2024 23:11-0400 Diastolic blood pressure 78 mm[Hg] [facility] Work Phone: [facility] 03-05-2024 23:11-0400 Heart rate 90 /min Services [facility] Work Phone: [facility] 03-05-2024 23:11-0400 Respiratory rate 18 /min [facility] Work Phone: [facility] 03-05-2024 23:11-0400 SaO2% (BldA) [Mass fraction] 96 % [facility] Work Phone: [facility] 03-05-2024 23:11-0400 Systolic blood pressure 136 mm[Hg] [facility] Work Phone: [facility] 03-05-2024 19:59-0400 Body temperature 98.1 [degF] [facility] Work Phone: [facility] 03-05-2024 19:58-0400 Body height 167.64 cm [facility] Work Phone: [facility] 03-05-2024 19:58-0400 Body weight 136.55 kg [facility] Work Phone: [facility] 02-26-2024 19:50-0400 Body height 167.64 cm [facility] Work Phone: [facility] 02-26-2024 19:50-0400 Body temperature 97.8 [degF] [facility] Work Phone: [facility] 02-26-2024 19:50-0400 Body weight 136.98 kg [facility] Work Phone: [facility] 02-26-2024 19:50-0400 Diastolic blood pressure 91 mm[Hg] [facility] Work Phone: [facility] 02-26-2024 19:50-0400 Heart rate 103 /min [facility] Work Phone: [facility] 02-26-2024 19:50-0400 Respiratory rate 16 /min [facility] Work Phone: [facility] 02-26-2024 19:50-0400 SaO2% (BldA) [Mass fraction] 96 % [facility] Work Phone: [facility] 02-26-2024 19:50-0400 Systolic blood pressure 144 mm[Hg] [facility] Work Phone: [facility] 02-23-2024 14:01-0400 Body mass index (BMI) [Ratio] 48.76 kg/m2 Mena Ann PA Work Phone: [facility] 02-23-2024 14:01-0400 Body weight 137.04 kg Mena Ann PA Work Phone: [facility] 02-23-2024 14:01-0400 Diastolic blood pressure 82 mm[Hg] Mena Ann PA Work Phone: [facility] 02-23-2024 14:01-0400 Systolic blood pressure 128 mm[Hg] Mena Ann PA Work Phone: [facility] 10-06-2023 17:42-0400 Body height 167.64 cm [facility] Work Phone: [facility] 10-06-2023 17:42-0400 Body temperature 98.3 [degF] [facility] Work Phone: [facility] 10-06-2023 17:42-0400 Body weight 134 kg [facility] Work Phone: [facility] 10-06-2023 17:42-0400 Diastolic blood pressure 94 mm[Hg] [facility] Work Phone: [facility] 10-06-2023 17:42-0400 Heart rate 98 /min [facility] Work Phone: [facility] 10-06-2023 17:42-0400 Respiratory rate 18 /min [facility] Work Phone: [facility] 10-06-2023 17:42-0400 SaO2% (BldA) [Mass fraction] 100 % [facility] Work Phone: [facility] 10-06-2023 17:42-0400 Systolic blood pressure 142 mm[Hg] [facility] Work Phone: [facility] 09-17-2023 14:22-0400 Body height 167.6 cm Anna Rodríguezmakenzie BAÑUELOS [facility] 09-17-2023 14:22-0400 Body mass index (BMI) [Ratio] 47.61 kg/m2 Anna Rodríguezmakenzie BAÑUELOS [facility] 09-17-2023 14:22-0400 Body weight 133.81 kg Annaromi Rodríguezmakenzie BAÑUELOS [facility] 08-20-2023 13:05-0400 Body height 167.6 cm Tonya Senior ANIMAL SKINNER.PSYCHIATRY PHYSICIAN Work Phone: [facility] 08-20-2023 13:05-0400 Body weight 133.81 kg Tonya Parrish ANIMAL SKINNER.PSYCHIATRY PHYSICIAN Work Phone: [facility] 08-07-2023 15:23-0400 Body height 168.91 cm Services [employer] Work Phone: [facility] 08-07-2023 15:23-0400 Body mass index (BMI) [Ratio] 46.9 kg/m2 Services [employer] Work Phone: [facility] 08-07-2023 15:23-0400 Body weight 133.89 kg Services [employer] Work Phone: [facility] 08-07-2023 15:23-0400 Diastolic blood pressure 83 mm[Hg] Services [employer] Work Phone: [facility] 08-07-2023 15:23-0400 Heart rate 101 /min Services [employer] Work Phone: [facility] 08-07-2023 15:23-0400 Respiratory rate 18 /min Services [employer] Work Phone: [facility] 08-07-2023 15:23-0400 SaO2% (BldA) [Mass fraction] 98 % Services [employer] Work Phone: [facility] 08-07-2023 15:23-0400 Systolic blood pressure 120 mm[Hg] Services [employer] Work Phone: [facility] 06-13-2023 11:00-0500 Body height 168.28 cm Nicholas Michaels Other [facility] 06-13-2023 11:00-0500 Body mass index (BMI) [Ratio] 48.53 kg/m2 Nicholas Michaels Other [employer] Other 06-13-2023 11:00-0500 Body weight 137.44 kg Nicholas Michaels Other [employer] Other 06-13-2023 11:00-0500 Body weight 137.43 kg [facility] Seen Phone: [facility] 06-13-2023 11:00-0500 Diastolic blood pressure 82 mm[Hg] Nicholas Michaels Other [facility] 06-13-2023 11:00-0500 Respiratory rate 18 /min Nicholas Michaels Other [employer] Other 06-13-2023 11:00-0500 SaO2% (BldA) [Mass fraction] 97 % Nicholas Michaels Other [employer] Other 06-13-2023 11:00-0500 Systolic blood pressure 120 mm[Hg] Nicholas Michaels Other [facility] 01-08-2023 10:45-0400 Body height 168.28 cm Nicholas Michaels Other [employer] Other 01-08-2023 10:45-0400 Body mass index (BMI) [Ratio] 52.89 kg/m2 Nicholas Michaels Other [employer] Other 01-08-2023 10:45-0400 Body weight 149.78 kg Nicholas Michaels Other [employer] Other 01-08-2023 10:45-0400 Diastolic blood pressure 81 mm[Hg] Nicholas Michaels Other [employer] Other 01-08-2023 10:45-0400 Respiratory rate 18 /min [email or web address] Other [employer] Other 01-08-2023 10:45-0400 SaO2% (BldA) [Mass fraction] 97 % [email or web address] Other [employer] Other 01-08-2023 10:45-0400 Systolic blood pressure 122 mm[Hg] [email or web address] Other [employer] Other 06-18-2022 16:57-0500 Body height 167.64 cm Services [employer] [facility] Work Phone: [facility] 06-18-2022 16:57-0500 Body weight 157 kg Services [employer] [facility] Work Phone: [facility] 06-18-2022 16:56-0500 Body temperature 98.3 [degF] Services [facility] Work Phone: [facility] 06-18-2022 16:56-0500 Diastolic blood pressure 67 mm[Hg] Services [employer] [facility] Work Phone: [facility] 06-18-2022 16:56-0500 Heart rate 95 /min Services [employer] [facility] Work Phone: [facility] 06-18-2022 16:56-0500 Respiratory rate 20 /min Services [employer] [facility] Work Phone: [facility] 06-18-2022 16:56-0500 SaO2% (BldA) [Mass fraction] 97 % Services [employer] Work Phone: [facility] 06-18-2022 16:56-0500 Systolic blood pressure 158 mm[Hg] Services [employer] [facility] Work Phone: [facility] 12-02-2021 20:26-0400 Body height 167.64 cm Services [employer] [facility] Work Phone: [facility] 12-02-2021 20:26-0400 Body temperature 98.2 [degF] Services [facility] Work Phone: [facility] 12-02-2021 20:26-0400 Body weight 144.24 kg Services [employer] Work Phone: [facility] 12-02-2021 20:26-0400 Diastolic blood pressure 89 mm[Hg] Services [employer] Work Phone: [facility] 12-02-2021 20:26-0400 Heart rate 104 /min Services [facility] [employer] Work Phone: [facility] 12-02-2021 20:26-0400 Respiratory rate 20 /min Services [employer] Work Phone: [facility] 12-02-2021 20:26-0400 SaO2% (BldA) [Mass fraction] 96 % Services [employer] Work Phone: [facility] 12-02-2021 20:26-0400 Systolic blood pressure 156 mm[Hg] Services [employer] Work Phone: [facility] 06-19-2020 11:10-0500 BMI (Body Mass Index) 46.65 kg/m2 Bayron Mccarty ZM-[id number] 310 [facility] Work Phone: 06-19-2020 11:10-0500 Body weight 131.09 kg Bayron Mccarty UQ-WVTPD-Ufzugz 310 IVF Work Phone: 06-19-2020 11:10-0500 BSA (Body Surface Area) 2.34 m2 Bayron Mccarty ZR-[id number]-[id number] 310 IVF Work Phone: 06-19-2020 11:10-0500 Height 167.64 cm Bayron Mccarty PX-AMNBK-Rawhgs 310 IVF Work Phone: 06-19-2020 11:10-0500 1 1 Bayron Mccarty PG-IRYNF-Njpiiy 310 IVF Work Phone: Comment on above: 06-19-2020 11:10-0500 0 1 Bayron Mccarty JQ-JGBOD-Tiyqjv 310 IVF Work Phone: Comment on above: Para Pain Scale Encounters Encounter Date Encounter Type Care Provider Facility Start: 04-22-2024 End: 04-22-2024 Bamboo flowsheet Tacho Shon DO Work Phone: [facility] Start: 04-22-2024 End: 04-22-2024 Bamboo flowsheet Tacho Shon DO Work Phone: [facility] Start: 04-22-2024 End: 04-22-2024 Office outpatient visit 15 minutes Tacho Shon DO Work Phone: [facility] Comment on above: 33 weeks gestation o f ; Third trimester ; H/O premature delivery; Thyroid disease (CMS/HCC); H/O pre-eclampsia in prior , currently Start: 04-22-2024 End: 04-22-2024 ambulatory TACHO SHON [...] 03-30-2024 End: 03-30-2024 ambulatory TACHO R SHON [facility] Start: 03-22-2024 End: 03-22-2024 Bamboo flowsheet [...] Work Phone: [facility] Unsolicited Start: 03-19-2024 End: 03-19-2024 Clinisync Result Encounter Mena CARRILLO Work Phone: [facility] Unsolicited Start: 03-05-2024 End: 03-05-2024 Emergency department patient visit Services [facility] Work Phone: [facility] Work Phone: Start: 03-01-2024 End: 03-01-2024 Orders Only Veda Hayes RN Maternal- Medic ine at [facility] Comment on above: Encounter for follow -up ultrasound of anatomy (Primary Dx); History of pre-eclampsia in prior , currently ; History of delivery, currently ; Obesity affecting in second trimester, unspecified obesity type Start: 02-26-2024 End: 02-26-2024 Emergency department patient visit Services [facility] Work Phone: [facility] Work Phone: Start: 02-23-2024 End: 02-23-2024 Bamboo flowsheet Mena CARRILLO Work Phone: [facility] Start: 02-23-2024 End: 02-23-2024 Bamboo flowsheet Mena CARRILLO Work Phone: [facility] Start: 02-23-2024 End: 02-23-2024 Office outpatient visit 15 minutes Mena Ann PA Work Phone: [facility] Comment on above: 25 weeks gestation o f ; Second trimester ; Diabetes mellitus screening; size inconsistent with dates; H/O premature delivery Start: 02-23-2024 End: 02-23-2024 ambulatory MENA ANN Not Available Start: 02-17-2024 End: 02-17-2024 ambulatory TACHO R [facility] Start: 01-26-2024 End: 01-26-2024 Clinisync Result Encounter Tacho Shon DO Work Phone: [facility] Unsolicited Start: 01-26-2024 End: 01-26-2024 Clinisync Result Encounter Tacho Shon DO Work Phone: [facility] Unsolicited Start: 01-20-2024 End: 01-20-2024 ambulatory TACHO SHON Not Available Start: 01-19-2024 End: [facility] Start: 12-23-2023 End: 12-23-2023 ambulatory MENA ANN Not Available Start: 11-25-2023 End: 11-25-2023 ambulatory TACHO SHON Not Available Start: 10-30-2023 End: 10-30-2023 ambulatory TACHO SHON Not Available Start: 10-09-2023 End: 10-09-2023 ambulatory LATONIA GREENE Facility:[facility] Start: 10-06-2023 End: 10-06-2023 Emergency department patient visit Services [facility] Work Phone: [facility]Emergency [facility] Work Phone: Start: 09-17-2023 End: 09-17-2023 ambulatory ANNA ORTIZ Facility:[facility] Start: 09-17-2023 End: 09-17-20[address] Nutrition therapy Anna Ortiz RD Nutrition Therapy Comment on above: Obesity, Class III, BMI 40-49.9 (morbid obesity) (HCC) (Primary Dx); Dietary counseling Start: 09-17-2023 End: 09-17-2023 Telemedicine consultation with patient Anna Ortiz RD Nutrition Therapy Start: 09-15-2023 Admission to same [facility] y surgery center Tonya Senior ANIMAL SKINNER.PSYCHIATRY PHYSICIAN Work Phone: General Surgery Comment on above: Results Start: 09-15-2023 E-mail encounter dena torres caregiver Tonya K Parrish ANIMAL SKINNER.PSYCHIATRY PHYSICIAN Work Phone: General Surgery Start: 09-11-2023 Telephone encounter Tonya Senior ANIMAL SKINNER.PSYCHIATRY PHYSICIAN Work Phone: General Surgery Comment on above: Results Start: 09-08-2023 End: 09-08-2023 ambulatory TONYA SENIOR Facility:[facility] Start: 09-05-2023 End: 09-05-2023 ambulatory TONYA SENIOR Facility:[facility] Start: 09-01-2023 End: 09-02-2023 ambulatory LATONIA GREENE Facility:[facility] Start: 09-01-2023 End: 09-01-2023 Admission to same day surgery center Latonia Greene PhD Work Phone: General Surgery BMI PSYL Comment on above: NO SHOW (Primary Dx) Start: 09-01-2023 End: 09-01-2023 Telemedicine consultation with patient Latonia Greene PhD Work Phone: General Surgery BMI PSYL Start: 08-20-2023 [facility] Tonya Senior ANIMAL SKINNER.PSYCHIATRY PHYSICIAN Work Phone: General Surgery Comment on above: Welcome to Bariatric Surgery Start: 08-20-2023 E-mail encounter dena torres caregiver Tonya Ron Senior ANIMAL SKINNER.PSYCHIATRY PHYSICIAN Work Phone: [facility] Start: 08-20-2023 End: 08-20-2023 ambulatory Tonya Senior ANIMAL SKINNER.PSYCHIATRY PHYSICIAN Work Phone: General Surgery Comment on above: Body mass index (BMI ) of 50-59.9 in adult (HCC) (Primary Dx); Angel's thyroiditis; High blood cholesterol Start: 08-20-2023 End: 08-20-2023 Telemedicine consultation with patient Tonya Senior FRED.PSYCHIATRY PHYSICIAN Work Phone: [facility] Start: 08-07-2023 End: 08-07-2023 ambulatory Services [facility] Work Phone: [facility] Work Phone: Start: 08-07-2023 End: 08-07-2023 Patient encounter procedure Services [facility] Work Phone: [facility] Work Phone: Start: 06-13-2023 Follow-up encounter Nicholas Michaels [facility] Start: 06-13-2023 Registered Recurring Services [facility] Work Phone: [facility] Work Phone: Start: 06-13-2023 End: 06-13-2023 ambulatory Nicholas Michaels [employer] Other Start: 06-13-2023 End: 06-13-2023 Patient encounter procedure Services [facility] Work Phone: [facility]- Start: 01-08-2023 End: 01-08-2023 ambulatory Nicholas Michaels Other [employer] Other Start: 01-08-2023 Nutrition therapy Nicholas Michaels [facility] Start: 06-18-2022 End: 06-18-2022 Emergency department patient visit Services [facility] Work Phone: [facility]Emergency [facility] Work Phone: Start: 06-03-2022 End: 06-03-[address] TACHO MENENDEZ Facility:[facility] Start: 12-02-2021 End: 12-02-2021 Emergency department patient visit Services [facility] Work Phone: [facility] Start: 07-08-2020 Patient encounter procedure Bayron Mccarty VC-[id number]-[id number] 310 IVF Work Phone: Start: 07-05-2020 Patient encounter procedure Bayron PARIKHOBGYNLizett Anaya [facility] Work Phone: Start: 06-19-2020 Patient encounter procedure Bayron KIMGYEriberto Anaya [facility] Work Phone: Start: 04-14-2020 Patient encounter procedure Bayron KIMGYNLizett Anaya [facility] Work Phone: Start: 03-28-2020 Patient encounter procedure Bayron KIMGYNLizett Anaya [facility] Work Phone: Start: 2020 Patient encounter procedure Bayron PARIKHOBGYNLizett Anaya [facility] Work Phone: Start: 01-24-2020 Patient encounter procedure Bayron KIMGYNLizett Anaya [facility] Work Phone: Start: 08-01-2017 End: 08-02-2017 Ambulatory Agustin Neida Facility:[id number] Start: 07-14-2017 End: 07-15-2017 Ambulatory [facility] Facility:[id number] Procedures Date Procedure Procedure Detail Performing Clinician Start: 04-22-2024 Urnls dip stick/tabl et rgnt non-auto w/o micrscp Tacho Shon DO Work Phone: Start: 04-06-2024 Urnls dip stick/tabl et rgnt non-auto w/o micrscp Mena CARRILLO Work Phone: Start: 03-22-2024 Urnls dip stick/tabl et rgnt non-auto w/o micrscp Tacho Shon DO Work Phone: Start: 03-19-2024 ALL CBC WITH AUTO DIFF Mena CARRILLO Work Phone: Start: 03-05-2024 Plain chest X-ray Servi malina [employer] [facility] Work Phone: Start: 03-05-2024 Respiratory Panel (PCR) Services [employer] [facility] Work Phone: Start: 03-05-2024 Streptococcus pyogen es antigen assay Services [employer] Work Phone: Start: 02-26-2024 Streptococcus pyogen es antigen assay Services Seen Phone: Start: 02-23-2024 Urnls dip stick/tabl et rgnt non-auto w/o micrscp Mena CARRILLO Work Phone: Start: 01-26-2024 ALL THYROID STIM HORMONE Tacho Menendez [employer] Work Phone: Start: 12-23-2023 Microscopic observat ion [Identifier] in Cervix by Cyto stain Tacho Menendez [employer] Work Phone: Start: 07-06-2020 Antibody screen Comment on above: Performed By: #### T +S #### [facility] [address] [place] [address] Start: 07-05-2020 IO Ultrasound, limit ed pelvic, follicle monitoring Bayron Mccarty Start: 06-26-2020 IO Ultrasound, limit ed pelvic, follicle monitoring Bayron Mccarty Start: 05-10-2020 Assay of progesterone J sharath Mccarty Adenoid excision Bayron wallace Cholecystectomy Bayron Chen ey SARS Antigen (LFIA) Services Seen Phone: Plan of Treatment Date Care Activity Detail Author Start: 12-22-2028 Screening for malign ant neoplasm of cervix [facility] Start: 12-22-2026 Screening for malign ant neoplasm of cervix Pap Smear [facility] Start: 03-01-2025 End: 03-01-2025 US MFM with or without consult US MFM with or without consult Imaging Routine Encounter for follow-up ultrasound of anatomy History of pre-eclampsia in prior , currently History of delivery, currently Obesity affecting in second trimester, unspecified obesity type Expected: 03/01/2025 (Approximate), Expires: 03/01/2025 [employer] Phone: Comment on above: Expected: 03/01/2025 (Approximate), Expires: 03/01/2025 Start: 01-18-2025 Adult [email or web address] Start: 01-18-2025 Tobacco Screening [email or web address] Start: 05-03-2024 End: 05-03-2024 Patient encounter procedure 05/03/2024 2:50 PM EST Routine [facility] [address] [place] [id number] Mena Ann PA [address] [place] [address] [facility] Start: 04-22-2024 End: 04-22-2025 US for US OB SCAN FOR GROWTH Imaging Routine H/O premature delivery Thyroid disease (CMS/HCC) H/O pre-eclampsia in prior , currently Expected: 04/22/2024 (Approximate), Expires: 04/22/2025 [facility] Work Phone: Comment on above: Expected: 04/22/2024 (Approximate), Expires: 04/22/2025 Start: 04-22-2024 End: 04-22-2024 Patient encounter procedure [...] PM EST Routine [facility] [address] [place] [phone] Mena Ann PA [address] [place], [place] [id number] [facility] Start: 03-30-2024 End: 03-30-2024 Patient encounter procedure 03/30/2024 2:45 PM EST Appointment [facility] - Ultrasound [address] [place] [phone] [facility] - [facility] Start: 03-22-2024 End: 03-22-2024 Patient encounter procedure 03/22/2024 1:50 PM EST Routine [facility] [address] [place] [phone] Tacho Menendez, DO [address] [place] [address] [facility] Start: 03-22-2024 End: 03-22-2024 Professional / ancillary services management 03/22/2024 1:00 PM EST Ancillary Procedure [facility] [address] [place] [phone] [facility] Start: 03-16-2024 End: 03-16-2024 Patient encounter procedure 03/16/2024 1:30 PM EST Routine [facility] [address] [place] [phone] Tacho Menendez, DO [address] [place] [address] [facility] Start: 02-23-2024 End: 02-22-2025 CBC panel - Blood by Automated count CBC Lab Routine Diabetes mellitus screening Expected: 02/23/2024 (Approximate), Expires: 02/22/2025 [facility] Work Phone: Comment on above: Expected: 02/23/2024 (Approximate), Expires: 02/22/2025 Start: 02-23-2024 End: 02-22-2025 Measurement of glucose 1 hour after glucose challenge for glucose tolerance test Glucose tolerance, 1 hour Lab Routine Diabetes mellitus screening Expected: 02/23/2024 (Approximate), Expires: 02/22/2025 [facility] Comment on above: Expected: 02/23/2024 (Approximate), Expires: 02/22/2025 Start: 02-23-2024 End: 02-22-2025 US for US OB SCAN FOR GROWTH Imaging Routine size inconsistent with dates H/O premature delivery Expected: 02/23/2024 (Approximate), Expires: 02/22/2025 [facility] Comment on above: Expected: 02/23/2024 (Approximate), Expires: 02/22/2025 Start: 02-23-2024 End: 02-23-2024 Patient encounter procedure 02/23/2024 1:40 PM EDT Routine [facility] [address] [place] [phone] Mena Ann PA [address] [place], [facility] Arrived [facility] Comment on above: Arrived Start: 02-18-2024 End: 02-18-2024 Patient encounter procedure 02/18/2024 2:30 PM EDT Routine [facility] [address] [place] [address] Mena Ann PA [address] [place], [place] [id number] [facility] Start: 01-11-2024 COVID-19 Vaccine ( season) COVID-19 Vaccine ( season) [facility] Start: 01-11-2024 Influenza vaccination N [facility] Start: 09-17-2023 End: 09-17-2023 Nutrition therapy 09/17/2023 2:30 PM EDT [facility] [address] [place] [id number] Anna Ortiz, RD [address] [place] [address] Red/Davis/0 Diet/[place] [facility] Comment on above: Red/Davis/0 Diet/ [place] Start: 09-12-2023 End: 09-12-2023 Admission to same day surgery center 09/12/2023 3:30 PM EDT [facility] [address] [place] [address] Joo Bradley MD [address] [place] [address] Red/Kirk/0 Diet/[place] [facility] Comment on above: Red/Kirk/0 Diet/Anth em Start: 09-05-2023 End: 09-05-2023 ambulatory 09/05/2023 11:45 AM EDT Results Only [facility] [address] [place] [address] [facility] Start: 08-20-2023 End: 11-19-2023 25-hydroxyvitamin D3 [Mass/volume] in Serum or Plasma VITAMIN D 25 HYDROXY Lab Routine Body mass index (BMI) of 50-59.9 in adult (HCC) Expected: 08/20/2023, Expires: 11/19/2023 [facility] Work Phone: Comment on above: Expected: 08/20/2023 , Expires: 11/19/2023 Start: 08-20-2023 End: 11-19-2023 CBC W Auto Differential panel - Blood COMPLETE BLOOD COUNT AND DIFFERENTIAL Lab Routine Body mass index (BMI) of 50-59.9 in adult (HCC) Expected: 08/20/2023, Expires: 11/19/2023 [facility] Work Phone: Comment on above: Expected: 08/20/2023 , Expires: 11/19/2023 Start: 08-20-2023 End: 11-19-2023 Cobalamin (Vitamin B12) [Mass/volume] in Serum or Plasma VITAMIN B12 Lab Routine Body mass index (BMI) of 50-59.9 in adult (HCC) Expected: 08/20/2023, Expires: 11/19/2023 [facility] Work Phone: Comment on above: Expected: 08/20/2023 , Expires: 11/19/2023 Start: 08-20-2023 End: 11-19-2023 Comprehensive metabolic 2000 panel - Serum or Plasma COMPREHENSIVE METABOLIC PANEL Lab Routine High blood cholesterol Body mass index (BMI) of 50-59.9 in adult (HCC) Expected: 08/20/2023, Expires: 11/19/2023 [facility] Work Phone: Comment on above: Expected: 08/20/2023 , Expires: 11/19/2023 Start: 08-20-2023 End: 11-19-2023 Ferritin [Mass/volume] in Serum or Plasma FERRITIN Lab Routine Body mass index (BMI) of 50-59.9 in adult ([facility]) Expected: 08/20/2023, Expires: 11/19/2023 [facility] Work Phone: Comment on above: Expected: 08/20/2023 , Expires: 11/19/2023 Start: 08-20-2023 End: 11-19-2023 Folate [Mass/volume] in Serum or Plasma FOLATE, SERUM Lab Routine Body mass index (BMI) of 50-59.9 in adult ([facility]) Expected: 08/20/2023, Expires: 11/19/2023 [facility] Work Phone: Comment on above: Expected: 08/20/2023 , Expires: 11/19/2023 Start: 08-20-2023 End: 11-19-2023 Helicobacter pylori IgG Ab [Presence] in Serum or Plasma by Immunoassay H PYLORI IGG AB Lab Routine Body mass index (BMI) of 50-59.9 in adult ([facility]) Expected: 08/20/2023, Expires: 11/19/2023 [facility] Work Phone: Comment on above: Expected: 08/20/2023 , Expires: 11/19/2023 Start: 08-20-2023 End: 11-19-2023 Hemoglobin A1c in Blood HEMOGLOBIN A1C Lab Routine Body mass index (BMI) of 50-59.9 in adult ([facility]) Expected: 08/20/2023, Expires: 11/19/2023 [facility] Work Phone: Comment on above: Expected: 08/20/2023 , Expires: 11/19/2023 Start: 08-20-2023 End: 11-19-2023 Iron and Iron binding capacity panel - Serum or Plasma IRON AND TIBC Lab Routine Body mass index (BMI) of 50-59.9 in adult ([facility]) Expected: 08/20/2023, Expires: 11/19/2023 [facility] Work Phone: Comment on above: Expected: 08/20/2023 , Expires: 11/19/2023 Start: 08-20-2023 End: 11-19-2023 Lipid 1996 panel - Serum or Plasma LIPID PANEL BASIC Lab Routine High blood cholesterol Body mass index (BMI) of 50-59.9 in adult ([facility]) Expected: 08/20/2023, Expires: 11/19/2023 [facility] Work Phone: Comment on above: Expected: 08/20/2023 , Expires: 11/19/2023 Start: 08-20-2023 End: 11-19-2023 Natriuretic peptide.B prohormone N-Terminal [Mass/volume] in Serum or Plasma NT PRO BNP Lab Routine Body mass index (BMI) of 50-59.9 in adult ([facility]) Expected: 08/20/2023, Expires: 11/19/2023 [facility] Work Phone: Comment on above: Expected: 08/20/2023 , Expires: 11/19/2023 Start: 08-20-2023 End: 11-19-2023 NICOTINE & METAB, UR NICOTINE & METAB, UR Lab Routine Body mass index (BMI) of 50-59.9 in adult ([facility]) Expected: 08/20/2023, Expires: 11/19/2023 [facility] Work Phone: Comment on above: Expected: 08/20/2023 , Expires: 11/19/2023 Start: 08-20-2023 End: 11-19-2023 Thyrotropin [Units/volume] in Serum or Plasma THYROID STIMULATING HORMONE Lab Routine Angel's thyroiditis Body mass index (BMI) of 50-59.9 in adult ([facility]) Expected: 08/20/2023, Expires: 11/19/2023 [facility] Work Phone: Comment on above: Expected: 08/20/2023 , Expires: 11/19/2023 Start: 08-20-2023 End: 11-19-2023 TOXICOLOGY SCREEN, ROUTINE URINE TOXICOLOGY SCREEN, ROUTINE URINE Lab Routine Body mass index (BMI) of 50-59.9 in adult (HCC) Expected: 08/20/2023, Expires: 11/19/2023 [facility] Work Phone: Comment on above: Expected: 08/20/2023 , Expires: 11/19/2023 Start: 08-20-2023 End: 11-19-2023 VITAMIN B1 (THIAMINE), WHOLE BLOOD VITAMIN B1 (THIAMINE), WHOLE BLOOD Lab Routine Body mass index (BMI) of 50-59.9 in adult (HCC) Expected: 08/20/2023, Expires: 11/19/2023 [facility] Work Phone: Comment on above: Expected: 08/20/2023 , Expires: 11/19/2023 Start: 05-12-2023 Behavioral Health Screening Behavioral Health Screening [facility] Start: 01-10-2023 Covid-19 Vaccine () Covid-19 Vaccine () [facility] Start: 12-02-2021 Plain chest X-ray XR chest 1V portab [facility] Start: 12-02-2021 XR Chest Single view [facility] Work Phone: Start: 2021 Screening for malign ant neoplasm of cervix HPV Testing [facility] Start: 2012 Screening for malign ant neoplasm of cervix Pap Testing [facility] Start: 2010 Hepatitis B Vaccine (1 of 3 - 19+ 3-dose series) Hepatitis B Vaccine (1 of 3 - 19+ 3-dose series) [facility] Start: 2009 Adult BMI Follow Up Plan Adult BMI Follow Up Plan [facility] Start: 2009 HIV screening HIV Screening [facility] Start: 2003 Depression Screening Depression [facility]: 2002 DTaP,Tdap and Td Vaccines (6 - Tdap) DTaP,Tdap and Td Vaccines (6 - Tdap) [facility] Start: 2002 Urine microalbumin profile DTaP,Tdap,Td Vaccine (6 - Tdap) [facility] End: 08-19-2024 ECG COMPLETE ECG COMPLETE ECG Routine Body mass index (BMI) of 50-59.9 in adult (HCC) 1 Occurrences starting 08/20/2023 until 08/19/2024 [facility] Work Phone: Comment on above: 1 Occurrences starti ng 08/20/2023 until 08/19/2024 Patient Education [facility] Work Phone: Patient referral [facility] Work Phone: Thyrotropin [Units/volume] in Serum or Plasma TSH Lab Routine Thyroid disease (CMS/HCC) Ordered: 04/22/2024 [facility] Comment on above: Ordered: 04/22/2024 End: 09-18-2024 US Abdomen RUQ US ABD RIGHT UPPER QUADRANT Radiology Routine Body mass index (BMI) of 50-59.9 in adult (HCC) 1 Occurrences starting 08/20/2023 until 09/18/2024 [facility] Work Phone: Comment on above: 1 Occurrences starti ng 08/20/2023 until 09/18/2024 End: 09-18-2024 XR Chest PA and Lateral XR CHEST 2V FRONTAL/LAT Radiology Routine Body mass index (BMI) of 50-59.9 in adult ([facility]) 1 Occurrences starting 08/20/2023 until 09/18/2024 [facility] Work Phone: Comment on above: 1 Occurrences starti ng 08/20/2023 until 09/18/2024 [id number] 310 IV[facility] Work Phone: [facility] NEGATED: Highlighted row has been ruled out! Planned Goals not documented [id number]-[id number] 310 IVF Work Phone: Immunizations Immunization Date Immunization Notes Care Provider Fa ciliestuardo 03-11-2023 influenza virus vacc ine, unspecified formulation Tacho Menendez DO Work Phone: [facility] Healthcare Payers Date Payer Category Payer Self-pay [id number] 2022 Medicaid [id number] 2022 Medicaid [id number] 1991 Unknown [id number] 2.16.840.1.945467.3.579.2.59 3 1991 Unknown [id number] 2.16.840.1.390797.3.579.2.12 86 1991 Unknown [id number] 2.16.840.1.879713.3.579.2.12 86 1991 Unknown [id number] 2.16.840.1.049173.3.579.2.12 86 1991 Unknown [id number] 2.16.840.1.342104.3.579.2.12 86 1991 Unknown [id number] 2.16.840.1.656600.3.579.2.12 59 1991 Unknown [id number] 2.16.840.1.553348.3.579.2.12 59 1991 Unknown [id number] 2.16.840.1.121107.3.579.2.12 59 1991 Unknown [id number] 2.16.840.1.388556.3.579.2.12 59 1991 Unknown [id number] 2.16.840.1.205151.3.579.2.12 59 1991 Unknown [id number] 2.16.840.1.800376.3.579.2.12 59 1991 Unknown [id number] 2.16.840.1.131077.3.579.2.12 59 1991 Unknown [id number] 2.16.840.1.710883.3.579.2.12 59 1959 Medicaid [id number] Private Health Insurance [facility] [id number] Unknown [id number] Unknown Regular Insurance [id number] Unknown [employer] [id number] Unknown Regular Auto/Medical [id number] Unknown [id number] 2.16.840.1.446845.3.579.2.53 1 Unknown [id number] 2.16.840.1.065014.3.579.2.53 1 Unknown [id number] 2.16.840.1.851168.3.579.2.53 1 Unknown [id number] 2.16.840.1.978317.3.579.2.53 1 Social History Date Type Detail Facility Start: 12-02-2021 End: 05-17-2023 Tobacco smoking status NHIS Never smoked tobacco (finding) [facility] Start: 1990 Sex Assigned At Female F [facility] Start: 05-17-2023 End: 08-20-2023 Sex Assigned At [employer] [facility] Other Start: 05-17-2023 End: 08-20-2023 Tobacco use and exposure Smokeless tobacco non-user [facility] Work Phone: Start: 08-20-2023 End: 04-22-2024 Alcohol intake Current drinker of alcohol (finding) [facility] Start: 05-17-2023 End: 08-20-2023 History of Social function [facility] National Score (1-100), lower number is lower risk 86 [facility] Start: 08-20-2023 Alcohol Comment occ [facility] Start: 1990 Sex Assigned At Not on file [facility] Start: 08-26-2023 Gender identity Identifies as female gender (finding) [facility] Start: 08-26-2023 Sexual orientation Heterosexual (fin ding) [facility] Start: 09-14-2023 [facility] How often to you hav e [...] Start: 01-19-2024 Alcoholic beverage intake Ex-drinker (finding) [facility] Start: 12-13-2014 Sex Female (finding) [facility] NEGATED: Highlighted row - - [id number] 310 IVF Work Phone: Functional Status Date Assessment Result Facility NEGATED: Highlighted row Functional performance Functional status health issues are not documented Disease [id number] 310 IVF Work Phone: Mental Status Date Assessment Result Facility NEGATED: Highlighted row Cognitive function [Interpretation] Cognitive status health issues are not documented Disease NY-IXBNN-Rrjaeq 310 IV[facility] Work Phone: Clinical Notes 01-08-2023 to 04-22-2024 Priscilla Fernandez, MILITARY POLICE OFFICER - 04/22/2024 9:40 AM GERARDO Hunter - 04/06/2024 1:30 PM Craig Mcbride LPN - 03/22/2024 1:50 PM GERARDO Hunter - 02/23/2024 1:40 PM EDTPatient Instructions Note Date & Type Note Facility 04-22-2024 History of Presen t illness Narrative Reason [...] Morbid obesity with BMI of 50.0-59.9, adult (CMS/[facility]) Vaginal delivery HISTORY PAST MEDICAL HISTORY SOCIAL HISTORY Past Medical History: Diagnosis Date Abdominal pain Breast pain, right Cholelithiasis Encounter for cervical smear to confirm findings of recent normal smear following initial abnormal smear Angel's disease (CMS/HCC) Hypothyroidism (CMS/HCC) Morbid obesity (CMS/HCC) Morbid obesity with BMI of 50.0-59.9, adult ([facility]) Vaginal delivery Social History Tobacco [...] 06/2019 OTHER SURGICAL HISTORY 2020 IUI 07/10/20 [facility] SALPINGECTOMY Left 2011 ectopic REVIEW OF [...] nursing note reviewed. Exam conducted with a long term care administrator present. Vitals: Estimated body mass index is 49.45 kg/m as calculated from the following: Height as of 08/26/22: 5' 6 . Weight as of this encounter: 306 lb 6.4 oz. BP: 130/80 Patient's last menstrual period was 08/24/2023. ASSESSMENT & PLAN ICD-10-CM 1. 33 weeks gestation of Z3A.33 POCT urinalysis dipstick manually resulted 2. Third trimester Z34.93 POCT urinalysis dipstick manually resulted Return OB: Patient presents today for a routine obstetrics appointment. Patient is currently 33w4d . Patient states she is doing well but has complaints of being tired due to current . Patient has verbalizes frequent movement. labor precautions was discussed/given and patient was instructed to perform kick counts three times a day. Given growth and tsh Orders Placed This Encounter Procedures US OB SCAN FOR GROWTH TSH POCT urinalysis dipstick manually resulted Follow Up: Patient is to return to office in 2 week for routine OB appointment. Documented by Priscilla Fernandez LPN on behalf of: Tacho Menendez DO documented in this encounter [facility] 04-06-2024 History of Presen t illness Narrative [...] Morbid obesity with BMI of 50.0-59.9, adult (CMS/[facility]) Vaginal delivery Social History Tobacco [...] 06/2019 OTHER SURGICAL HISTORY 2020 IUI 07/10/20 [facility] SALPINGECTOMY Left 2011 ectopic REVIEW OF [...] of: GERARDO Vazquez documented in this encounter [facility] 03-22-2024 History of Presen t illness [...] Morbid obesity with BMI of 50.0-59.9, adult (CMS/[facility]) Vaginal delivery HISTORY PAST MEDICAL HISTORY SOCIAL HISTORY Past Medical History: Diagnosis Date Abdominal pain Breast pain, right Cholelithiasis Encounter for cervical smear to confirm findings of recent normal smear following initial abnormal smear Angel's disease (CMS/HCC) Hypothyroidism (CMS/HCC) Morbid obesity (CMS/HCC) Morbid obesity with BMI of 50.0-59.9, adult (CMS/[facility]) Vaginal delivery Social History Tobacco [...] 06/2019 OTHER SURGICAL HISTORY 2020 IUI 07/10/20 [facility] SALPINGECTOMY Left 2011 ectopic REVIEW OF [...] nursing note reviewed. Exam conducted with a long term care administrator present. Vitals: Estimated body mass index is [...] Tacho Menendez DO documented in this encounter [facility] 02-23-2024 History of Presen t illness [...] Morbid obesity with BMI of 50.0-59.9, adult (CMS/[facility]) Vaginal delivery Social History Tobacco [...] @ age 6 or 7 CHOLECYSTECTOMY 07/20/2019 ([facility]) ERCP 06/2019 OTHER SURGICAL HISTORY 2020 IUI 07/10/20 [facility] SALPINGECTOMY Left 2011 ectopic REVIEW OF [...] nursing note reviewed. Exam conducted with a long term care administrator present. Vitals: Estimated body mass index is [...] of: GERARDO Vazquez documented in this encounter [facility] 10-09-2023 Note HNO ID: [id number] Author: LATONIA GREENE, PhD Service: ? Author Type: Psychologist Type: Progress Notes Filed: 10/17/2023 11:09 Note Text: [facility] BARIATRIC SURGERY BEHAVIORAL HEALTH EVALUATION BMI Surgical Pathway Visit type: Psychology Visit DATE OF SERVICE: October 09, 2023 TIME OF SERVICE: 1:00 PM - 2:00 PM COST CENTER: [facility] CPT CODE: - [id number] Virtual Psych Diagnostic Eval BILLING CODE: ENDO PSYL MAIN Jerel DATE OF FIRST SERVICE THIS CYCLE: October 09, 2023 SESSION #: 1 I have communicated my name and active licensure. The patient's identity and physical location (see below) were verified at the time of this visit. Either the patient or their legal aircraft sales representative has been informed of the risks and benefits of -- and alternatives to -- treatment through a remote evaluation and consents to proceed with the evaluation remotely. This evaluation is NOT intended for forensic, disability or child custody purposes. The patient e-signed a copy of the consent form via frooly and the [facility] insurance benefits, fees for service, emergency procedures, [...] in case of emergency and/or disconnection. [address] [place] [address] (Change address in [facility], was mother) Alternate Distributing Clerk Bibi Arrieta (Mother) [phone] (Home Phone) Patient identified the following plan to follow in case of emergency: Go to emergency room (nearest is [facility]) or call 911. IDENTIFYING INFORMATION: Ms. Jaleesa [...] pt has l (more content not included)... [facility] 09-22-2023 Telephone encounter Note Can not schedule patient as there is already a patient scheduled for that day and time. Please advise. Thanks Meme Castrejon [facility] 09-22-2023 Telephone encounter Note ----- Message from Anna Ortiz RD sent at 09/17/2023 3:17 PM EDT ----- Regarding: virtual follow up Please schedule for a virtual up 10/16 at 1. The patient is aware, no call needed. Thank you! Anna [facility] 09-22-2023 Miscellaneous Notes Can not schedule patient [...] levels, no answer, left vm. Tonya Senior APRN.PSYCHIATRY PHYSICIAN documented in this encounter [facility] 09-17-[address] - 09/17/2023 [...] full-liquid diet. Examples: Slim Fast Advanced Nutrition [place] Breakfast Essentials Light Start Drink mixed with [...] Bariatric Multivitamin and Calcium Citrate (total of 4492-3619 mg/day) * take calcium citrate separately from Multivitamin with iron at least 2 hours apart and 4 hours apart from additional calcium www.[email or web address] Hydro.NeurogesX - Bariatric Choice: 4 Complete Multivitamins (chewables) [...] grams per day documented in this encounter [facility] 09-17-2023 Note HNO ID: [id number] Author: ANNA ORTIZ RD Service: ? Author Type: Registered Dietitian Type: Progress Notes Filed: 09/17/2023 15:19 Note Text: [facility] Nutrition Therapy: Virtual Consult - Initial Assessment I have communicated my name and active licensure. The patient?s identity and physical location were verified at the time of this visit. Either the patient or their legal aircraft sales representative has been informed of the [...] to Surgery by next session [email or web address] -/[email or web address]/files/org/[email or web address]/ [email or web address]?la=en 2. Do [...] Examples: ? Slim Fast Advanced Nutrition ? [place] Breakfast Essentials ?Light Start? Drink mixed with [...] Bariatric Multivitamin and Calcium Citrate (total of 5193-3422 mg/day) * take calcium citrate separately from Multivitamin with iron at least 2 hours apart and 4 hours apart from additional calcium www.i4.ms.NeurogesX - Bariatric Choice: 4 Complete Multivitamins (chewables) per day Www.bariatricchoice.NeurogesX - Bariatric Advantage: 2 Multivitamins and 3 Calcium Citrate Chewables per day * take calcium citrate separately from Multivitamin with iron at least 2 hours apart and 4 hours apart from additional calcium Www.bariatricadTurbogenage.[email or web address] Start practicing eating slowly, chewing each bite [...] and using Phen (more content not included)... [facility] 09-17-2023 History of Presen t illness Narrative [facility] Nutrition Therapy: Virtual Consult - Initial Assessment I have communicated my name and active licensure. The patient s identity and physical location were verified at the time of this visit. Either the patient or their legal aircraft sales representative has been informed of the [...] Your Guide to Surgery by next session [email or web address] -/[email or web address]/files/org/[email or web address]/ [email or web address] [email or web address]?la=en 2. Do not skip [...] full-liquid diet. Examples: Slim Fast Advanced Nutrition [place] Breakfast Essentials Light Start Drink mixed with [...] in the AM, 2 in the PM) www.bariatricfusion.NeurogesX - [employer]: 1 Bariatric Multivitamin and Calcium Citrate (total of 7265-2763 mg/day) * take calcium citrate separately from Multivitamin with iron at least 2 hours apart and 4 hours apart from additional calcium www.i4.ms.NeurogesX - Bariatric Choice: 4 Complete Multivitamins (chewables) per day Www.bariatricchoice.NeurogesX - Bariatric Advantage: 2 Multivitamins and 3 Calcium Citrate Chewables per day * take calcium citrate separately from Multivitamin with iron at least 2 hours apart and 4 hours apart from additional calcium Www.bariatricadvantage.NeurogesX Start practicing eating slowly, chewing each bite [...] suggested by 180 Initial weight: 295 lbs. [place] body weight is 155 lbs. Excess body weight is 140 lbs. Goal weight pre-op is 281 lbs. Protein needs are estimated at 85gm (1.2 - protein/kg IBW) Patient meets the National Institutes of Health guidelines for weight loss surgery and has [place] Insurance therefore is required to complete 0 [...] pizz rolls, sandwich, chips Snack - slim [facility] Hospital[facility] dick cNikkivookies cheese crackers Beverages - water, juice [...] TIME: 2:25 PM documented in this encounter [facility] 09-11-2023 Telephone encounter Note Attempted to call pt, re: hypothyroid and low vitamin d levels, no answer, left vm. Tonya Senior APRN.PSYCHIATRY PHYSICIAN [facility] 09-01-2023 Note HNO ID: [id number] Author: LATONIA GREENE, PhD Service: ? Author Type: Psychologist Type: Progress Notes Filed: 09/01/2023 13:22 Note Text: [facility] Progress Note 09/01/2023 Billing code: Jerel Patient did not attend, cancel, or reschedule this appointment. Provider left HIPAA compliant voicemail and TapResearcht message with contact information to reschedule. Latonia Greene, PhD Clinical Psychologist [facility] 09-01-2023 History of Presen t illness Narrative [facility] Progress Note 09/01/2023 Billing code: Jerel Patient did not attend, cancel, or reschedule this appointment. Provider left HIPAA compliant voicemail and Snoobehart message with contact information to reschedule. Latonia Greene, PhD Clinical Psychologist documented in this encounter [facility] 08-20-2023 Note HNO ID: [id number] Author: TONYA SENIOR APRN.MERON Service: ? Author Type: Nurse Practitioner Type: Progress Notes Filed: 08/20/2023 16:21 Note Text: have communicated my name and active licensure. The patient's identity and physical location were verified at the time of this visit. Either the patient or their legal aircraft sales representative has been informed of the risks and benefits of -- and alternatives to -- treatment through a remote evaluation and consents to proceed with the evaluation remotely. BMI MEDICAL CONSULT I have communicated my name and active licensure. The patient's identity and physical location were verified at the time of this visit. Either the patient or their legal aircraft sales representative has been informed of the [...] HEMOGLOBIN A1C - (more content not included)... [facility] 08-20-2023 History of Presen t illness Narrative Images from the original note were not included. have communicated my name and active licensure. The patient's identity and physical location were verified at the time of this visit. Either the patient or their legal aircraft sales representative has been informed of the risks and benefits of -- and alternatives to -- treatment through a remote evaluation and consents to proceed with the evaluation remotely. BMI MEDICAL CONSULT I have communicated my name and active licensure. The patient's identity and physical location were verified at the time of this visit. Either the patient or their legal aircraft sales representative has been informed of the [...] METABOLIC PANEL - LIPID PANEL BASIC Tonya Senior, FRED.PSYCHIATRY PHYSICIAN -- Recommend that she should not become [...] Obesity Medicine Visit documented in this encounter [facility] 06-13-2023 Evaluation note Encounter Date Diagnosis Assessment [...] 8 weeks -Handed patient self referral to [facility] bariatric surgery program -Iyddw-ah-kgbf A1c December 2022 5.4%-Follow up in clinic in 8 weeksThis note was created with voice recognition software. Please excuse errors in service worker helper. Jun, Dietary surveillance and counseling (ICD-10 [...] for a goal of 5% weight reduction. [employer] [facility] Other 08-30-2023 Evaluation note* Encounter Date Diagnosis [...] on in the past and denies side jodmcmd-Kmgae-qk-care A1c today 5.4%-Follow up in clinic in 4 weeksThis note was created with voice recognition software. Please excuse errors in service worker helper. Dec, Dietary surveillance and counseling (ICD-10 [...] premade protein drink for breakfast, by plain Sami yogurt and flavor yourself with cinnamon or [...] with the patient, and documenting clinical information. [employer] Other chief complaint+Reason for visit Narrative* Chief Complaint Obesity Reason for Visit Exercise counseling Severe obesity (BMI >= 40) [facility] Work Phone: chief complaint+Reason for visit Narrative* Chief Complaint Pos test, Cramping, Vaginal bleeding Reason for Visit Exercise counseling Severe obesity (BMI >= 40) [facility] Work Phone: evaluation noteNo assessment information available [facility] Work Phone: evaluation note* Diagnosis Onset Date Resolution Status Exercise counseling acute Severe obesity (BMI >= 40) delilah kevin [facility] Work Phone: evaluation note* Diagnosis Body mass index (BMI) of 50-59.9 in adult (HCC)- Primary Body Mass Index 50.0-59.9, adult Angel's thyroiditis Chronic lymphocytic thyroiditis High blood cholesterol Pure hypercholesterolemia [facility] Diagnosis NO SHOW- Primary [facility]* Diagnosis Obesity, Class III, BMI 40-49.9 (morbid obesity) ([facility])- Primary Morbid obesity Dietary counseling Dietary surveillance and counseling [facility] Diagnosis Vitamin D deficiency- Primary Unspecified vitamin D deficiency [facility]* Diagnosis 25 weeks gestation of Second trimester state, incidental Diabetes mellitus screening Screening for diabetes mellitus size inconsistent with dates H/O premature delivery [facility] Encounter for follow-up ultrasound of anatomy- Primary History of pre-eclampsia in prior , currently with other poor obstetric history History of delivery, currently with history of pre-term labor Obesity affecting in second trimester, unspecified obesity type documented in this [facility]* Diagnosis Third trimester state, incidental 29 weeks gestation of documented in this encounter [facility]* Diagnosis Third trimester state, incidental 31 weeks gestation of H/O premature delivery documented in this encounter [facility]* Diagnosis 33 weeks gestation of Third trimester state, incidental H/O premature delivery Thyroid disease (CMS/HCC) Unspecified disorder of thyroid H/O pre-eclampsia in prior , currently documented in this encounter [facility] HealthcareHistory general Narrative - Reported* Type Description Date Surgical History adnoidectomy Surgical History gall bladder Surgical History L Fallopian tube removed Hospitalization History See Above [employer] [facility] Other Hospital Discharge instructions Additional Instructions You may take plri-odc-ejiakbv cough and cold medication as needed You may take tdsx-htx-rnqqwwt Tylenol and/or ibuprofen as needed Increase oral fluids Follow-up with family doctor as needed Return to the ER for any acute difficulty breathing high fever vomiting or any [facility] Work Phone: Hospital Discharge instructions Additional Instructions Nothing into vagina until seen by BOTTOM SCRUBBER May take Tylenol for discomfort Increase oral fluids Follow-up with BOTTOM SCRUBBER Return to the ER for heavy bleeding greater than a pad an hour feeling dizzy lightheaded or any other [facility] Work Phone: Hospital Discharge instructions Additional Instructions Follow-up with your OB in the next week.[facility] Work Phone: InstructionsNot on filedocumented in this encounter [facility] SystemReason for referral (narrative)* Diagnostic Procedure Only (Routine) - Pending Review Specialty Diagnoses / Procedures Referred By Wendy campos Referred To Contact US IMAGING Diagnoses Body mass index (BMI) of 50-59.9 in adult (HCC) Procedures US ABD RIGHT UPPER QUADRANT US ABDOMINAL REAL TIME W/IMAGE LIMITED Tonya Senior, ANIMAL SKINNER.PSYCHIATRY PHYSICIAN [address] [place] [address] [facility] [address] Referral ID Status Reason Start Date Expiration Date Visits Requested Visits Authorized [id number] Pending Review Auto-Generat ed Referral 08/20/2023 09/18/2024 1 1 * Outpatient Procedure (Routine) - Pending Review Specialty Diagnoses / Procedures Referred By Contac t Referred To [facility] Diagnoses Body mass index (BMI) of 50-59.9 in adult (HCC) Procedures ECG COMPLETE ECG ROUTINE ECG W/LEAST 12 LDS W/I&R Tonya Senior APRN.PSYCHIATRY PHYSICIAN [address] [place] [address] [facility] [address] [place] [address] Referral ID Status Reason Start Date Expiration Date Visits Requested Visits Authorized [id number] Pending Review Auto-Generat ed Referral 08/20/2023 08/19/2024 1 1 [facility] Summary Purpose Family History Mother Name Dates [...] and content) DATE CREATED AUTHOR 10/31/2017 [facility] DATE CREATED AUTHOR AUTHOR'S ORGANIZ ATION 04/23/2020 [facility] DATE CREATED AUTHOR AUTHOR'S ORGANIZ ATION 08/08/2020 [facility] DATE CREATED AUTHOR AUTHOR'S ORGANIZ ATION 08/22/2020 [facility] DATE CREATED AUTHOR AUTHOR'S ORGANIZ ATION 06/11/2022 [facility] DATE CREATED AUTHOR AUTHOR'S ORGANIZ ATION 09/06/2023 [facility] DATE CREATED AUTHOR AUTHOR'S ORGANIZ ATION 10/03/2023 [facility] DATE CREATED AUTHOR AUTHOR'S ORGANIZ ATION 10/18/2023 [facility] DATE CREATED AUTHOR AUTHOR'S ORGANIZ ATION 01/20/2024 [facility] DATE CREATED AUTHOR AUTHOR'S ORGANIZ ATION 03/19/2024 [facility] DATE CREATED AUTHOR AUTHOR'S ORGANIZ ATION 04/02/2024 [facility] DATE CREATED AUTHOR AUTHOR'S ORGANIZ ATION 04/25/2024 [facility] EPIC Care Teams (unrecognized sec tion and content) Team Status: Inactive Member Role Status Dates Services Family Health Primary Care Provider Active Ck To PA-C Emergency Provider Active Team Status: Active Member Role Status Dates Services Family Health Primary Care Provider Active Team Status: Inactive Member Role Status Dates Services Family [facility] Primary Care Provider Active ONIEL Mcmillan Emergency Provider Active Team Status: Inactive Member Role Status Dates Nicholas Michaels DO Attending Provider Active St art: June 13, 2023 End: June 13, 2023 Team Status: Active Member Role Status Dates Services Family [facility] Primary Care Provider Active Start: June [...] Team Status: Inactive Member Role Status Dates [facility] Primary Care Provider Active Start: October 06, 2023 End: October 06, 2023 ALFONSO Mcmillan- Emergency Provider Active Start: October 06, 2023 End: October 06, 2023 Team Status: Inactive Member Role Status Dates [facility] Primary Care Provider Active Start: February 26, 2024 End: February 26, 2024 Ck To PA-C Emergency Provider Active Start: February 26, 2024 End: February 26, 2024 Team Status: Inactive Member Role Status Dates [facility] Primary Care Provider Active Start: March 05, [...] or prosecute any alcohol or drug abuse patient.[facility] the event this information is protected by the Federal Confidentiality of Alcohol and Drug Abuse Patient Records regulations: The Federal rules restrict any use of the information to criminally investigate or prosecute any alcohol or drug abuse patient.[facility] the event this information is protected by the Federal Confidentiality of Alcohol and Drug Abuse Patient Records regulations: The Federal rules restrict any use of the information to criminally investigate or prosecute any alcohol or drug abuse patient.[facility] Foundation[facility] the event this information is protected by the Federal Confidentiality of Alcohol and Drug Abuse Patient Records regulations: The Federal rules restrict any use of the information to criminally investigate or prosecute any alcohol or drug abuse patient.[facility] Foundation[facility] the event this information is protected by the Federal Confidentiality of Alcohol and Drug Abuse Patient Records regulations: The Federal rules restrict any use of the information to criminally investigate or prosecute any alcohol or drug abuse patient.[facility] the event this information is protected by the Federal Confidentiality of Alcohol and Drug Abuse Patient Records regulations: The Federal rules restrict any use of the information to criminally investigate or prosecute any alcohol or drug abuse patient.[facility] FOR RECORDS PERTAINING TO PATIENTS WHO ARE [...] PRIMARY CLINICAL RECORDS. [facility] [employer] [facility]. provides no warranty or guarantee of the accuracy or completeness of information in this document.
== END 2024-04-28 21:21 | disposition home or self-care (01) ==
LOC: FBC 20:48 → FBCO 04-29 11:29
PROVIDERS: Visit Provider Obstetrics & Gynecology
DX: O26.893 Other specified pregnancy related conditions, third trimester (principal); Z3A.34 34 weeks gestation of pregnancy
CPT/HCPCS: 59025

== ENCOUNTER 2024-04-30 05:17 | Outpatient (OUT) | payer MEDICAID, SELFPAY ==
--- NOTE | 2024-04-30 | US_ITS ---
[address] [address] Patient Name: FABRIZIO PAINTING MRN: [id number] date: 1990 Sex: F Assigned Patient Location: [facility] Current Patient Location: [facility] Accession/Order Number: [id number] Exam Date: 04/30/2024 15:07 Report Date: 04/30/2024 16:14 At the request of: MELISSA CLARK Procedure: US OB BPP w non-stress EXAMINATION: US OB BPP w non-stress HISTORY: History of delivery Z87.51 COMPARISON: No relevant comparison available. TECHNIQUE: Ultrasound biophysical profile was performed in the radiology department. non-reactive stress testing was performed by nursing staff in the birthing center. FINDINGS: BREATHING MOVEMENTS: 2 GROSS BODY MOVEMENTS: 2 TONE: 2 QUALITATIVE AMNIOTIC FLUID VOLUME: 2 PRESENTATION: CEPHALIC HEART RATE: 145.95 bpm AMNIOTIC FLUID VOLUME: 9.8 cm GESTATIONAL AGE: 89 Day US/US OB BPP w non-stress IMPRESSION: Total biophysical profile score: 8 Electronically authenticated by: GEORGETTE LIANG Date: 04/30/2024 16:14
--- OUTSIDE RECORDS SUMMARY | 2024-04-30 05:21 | XMS_ITS | CCD ---
Author Organization [facility] Care Team Providers Care Manufacturing Finance Manager Name Role Phone Agustin Patton Unavailable Unavailable Agustin Patton Unavailable Unavailable Bayron Mccarty Unavailable Unavailable Unavailable Unavailable Unavailable Unavailable Unavailable Unavailable [facility] [place] Primary Care Provider DEMETRIUS To Emergency Provider DR TACHO MENENDEZ Attending Unavailable DR TACHO MENENDEZ Consulting Unavailable DR TACHO MENENDEZ Admitting Unavailable [facility] [place] Primary Care Provider Anabella [facility] Marychuy E Emergency Provider Nicholas Michaels Unavailable [facility] Services Primary Care Provider DO Nicholas Michaels Attending Provider Unavailable Primary Care Provider Unavailabl e Unavailable Primary Care Provider Unavailabl e LATONIA GREENE Attending Unavailable TONYA SENIOR Attending Unavailable [facility] [place] Primary Care Provider Anabella [facility] Marychuy E Emergency Provider LATONIA GREENE Referring Unavailable LATONIA GREENE Attending Unavailable ANNA ORTIZ Attending Unavailable TONYA SENIOR Referring Unavailable TONYA SENIOR Referring Unavailable TACHO MENENDEZ Referring Unavailable MAKEDA GROSS Attending Unavailable TACHO MENENDEZ Referring Unavailable Unavailable Primary Care Provider Unavailabl e [facility] [place] Primary Care Provider DEMETRIUS To Emergency Provider [phone] Unavailable Primary Care Provider Unavailabl DO Devika Christie Emergency Provider Ck To Attending Unavailable Ck To Admitting Unavailable [facility] [place] Primary Care Unavaila Marychuy Rey Attending Unavailable Marychuy Kyle Admitting Unavailable [facility] [place] Primary Care Unavaila Nicholas Willams Attending Unavailable Nicholas Michaels Admitting Unavailable [facility] [place] Primary Care Unavaila ble [facility] [place] Primary Care Unavaila Devika Hillman Attending [...] mg/ml oral solution (2 sources) Phenothiazine, Uncompetitive E-fmwaiu-K-aspartate Receptor Antagonist, Sigma-1 Agonist Start: 02-26-2024 take [...] Daily 30 tablet 11 10/30/2023 10/29/2024 Active [place]i (No Known Home Meds) (3 sources) Start: 10-06-2023 [place] (No Kn own Home Meds) Active October 06, 2023 12:00am Start: 06-18-2022 [place] (No Kn own Home Meds) Active June [...] oral solution (7 sources) alpha-Adrenergic Agonist, Uncompetitive S-oclhwa-G-asparta te Receptor Antagonist, Sigma-1 Agonist Start: 2 [...] 26, 2019 12:58pm July 28, 2020 7:27pm Ywvofyfi-Mcp-Br-Fa () 1 mg Tablet (7 sources) Start: 12-31-2020 End: 07-04-2021 take 1 tablet by mouth once Ldjuayaf-Ghl-Fj-Fa () 1 mg Tablet Discontinued TAB PO December 30, 2020 11:00pm July 04, 2021 9:48am Start: 12-31-2020 End: 07-04-2021 take 1 tablet by mouth once Axvgafqo-Pxk-Tn-F a () 1 mg Tablet Discontinued TAB PO December 31, 2020 12:00am July 04, 2021 10:48am progesterone 100 mg oral capsule (9 sources) Progesterone Start: 07-28-2020 End: 12-31-2020 Progesterone Micronized Discontinued 100 MG VAGINAL Twice daily July 28, 2020 12:00am December 31, 2020 9:55am Start: 06-19-2020 take 1 capsule by mo [facility] twice daily Progesterone Micronized 100 MG Oral Capsule TAKE 1 CAPSULE Twice daily insert capsules vaginally Quantity: 30 Refills: 3 Bayron Mccarty MD Start : 19-Jun-2020 Active sennosides, correction 8.6 mg oral tablet (1 source) take 4 tablets by [facility] every twenty-four hours Senna 8.6 MG [...] UA Negative Negative - 4(70) +++ mg/dL [facility] Blood, UA Negative Negative - 50 Bradley/mcL [facility] Clarity, UA Clear [facility] Color, UA Yellow [facility] Glucose, UA Negative Negative - 1999(110) ++++ mg/dL [facility] Interpretation and review of laboratory results Abnormal [facility] Ketones, UA Negative Negative - 160(16) ++++ mg/dL [facility] Leukocytes, UA Trace Negative - 500+++ Gabby/mcL [facility] Nitrite, UA Negative Negative - Positive [facility] pH, UA 6 5 - 9 [facility] Protein, UA Positive Negative - 1999(20) ++++ mg/dL [facility] Comment on above: 30 Spec Grav, UA 1.025 1 - 1.03 [facility] Urobilinogen, UA 1.0 0.2 - 12 mg/dL [facility] Urinalysis macro (dipstick) panel (U)on 04-06-2024 Bilirubin, UA Negative Negative - 4(70) +++ mg/dL [facility] Blood, UA Negative Negative - 50 Bradley/mcL [facility] Clarity, UA Clear [facility] Color, UA Yellow [facility] Glucose, UA Negative Negative - 1999(110) ++++ mg/dL [facility] Interpretation and review of laboratory results Abnormal [facility] Ketones, UA Negative Negative - 160(16) ++++ mg/dL [facility] Leukocytes, UA Positive Negative - 500+++ Gabby/mcL [facility] Comment on above: small Nitrite, UA Negative Negative - Positive [facility] pH, UA 7 5 - 9 [facility] Protein, UA Negative Negative - 1999(20) ++++ mg/dL [facility] Spec Grav, UA 1.02 1 - 1.03 [facility] Urobilinogen, UA 0.2 0.2 - 12 mg/dL [facility] Urinalysis macro (dipstick) panel (U)on 03-22-2024 Bilirubin, UA Positive Negative - 4(70) +++ mg/dL [facility] Blood, UA Negative Negative - 50 Bradley/mcL [facility] Clarity, UA Clear [facility] Color, UA Yellow [facility] Glucose, UA Negative Negative - 1999(110) ++++ mg/dL [facility] Interpretation and review of laboratory results Normal [facility] Ketones, UA Positive Negative - 160(16) ++++ mg/dL [facility] Leukocytes, UA Positive Negative - 500+++ Gabby/mcL [facility] Nitrite, UA Negative Negative - Positive [facility] pH, UA 7 5 - 9 [facility] Protein, UA Positive Negative - 1999(20) ++++ mg/dL [facility] Spec Grav, UA 1.025 1 - 1.03 [facility] Urobilinogen, UA 1.0 0.2 - 12 mg/dL [facility] ALL CBC WITH AUTO DIFFon BASOPHILS ABSOLUTE AUTO 0 [facility] Basophils/100 WBC (Bld) 0.5 % 0.2 - 2.0 % [facility] Eosinophils/100 WBC (Bld) 2.4 % 0.9 - 7.0 % [facility] Erythrocyte distribution width (RBC) [Ratio] 13.2 % 11.0 - 15.0 % [facility] Hematocrit (Bld) [Volume fraction] 33.2 % Low 36.0 - 48.0 % [facility] Hemoglobin (Bld) [Mass/Vol] 11.1 g/dL Low 12.0 - 16.0 g/dL [facility] IMMATURE GRANULOCYTES ABS AUTO 0.02 [facility] Immature granulocytes/100 WBC (Bld) 0.3 % 0.0 - 0.5 % [facility] Interpretation and review of laboratory results Abnormal [facility] LYMPHOCYTES ABSOLUTE AUTO 2.1 [facility] Lymphocytes/100 WBC (Bld) 32.5 % 20.5 - 60.0 % [facility] MCH (RBC) [Entitic mass] 30.5 pg 26.7 - 34.0 pg [facility] MCHC (RBC) [Mass/Vol] 33.4 g/dL 29.9 - 35.2 g/dL [facility] MCV (RBC) [Entitic vol] 91.2 fL 81.0 - 99.0 fL [facility] MONOCYTES ABSOLUTE AUTO 0.3 [facility] Monocytes/100 WBC (Bld) 4.6 % 1.7 - 12.0 % [facility] NEUTROPHILS ABSOLUTE AUTO 3.9 [facility] Neutrophils/100 WBC (Bld) 59.7 % 43.0 - 75.0 % [facility] Platelet mean volume (Bld) [Entitic vol] 9.3 fL Low 9.5 - 13.5 fL [facility] TB EO # 0.2 [facility] TB PLT 342 [facility] TB RBC 3.64 Low [facility] WBC 6.6 [facility] BioFire Not Detectedon 03-05 BioFire Not Detected Not detected Normal Not Detecte [facility] Comment on above: Result Comment: This is a duplicate RP2.1 COVID (PCR) result to be used for statistical tracking purpose only. PERFORMED BY: [place] [address] PATHOLOGIST EDUCATION DEAN LION STANLEY M.D. Performed By: #### B IOFIRECOVNOTDE, QS, RESP PANEL UPP. #### [address] COVID-19 Detected/Not Detect edOrdered By: Devika De La Garza on 03-05-2024 SARS-CoV-2 (COVID-19) RNA YANET+non-probe Ql (Nph) Not detected Not Detecte [facility] Comment on above: This is a duplicate RP2.1 COVID (PCR) result to be used for statistical tracking purpose only. ECG 12 lead ECGon 03-05-2024 ECG 12 lead ECG [facility] Main [place] [address] [place] [address] Electrocardiograph Report Signed Patient: Jaleesa Arrieta MR#: [id number] [birth year] : 1990 Acct:[id number] Age/Sex: 33 / F ADM Date: 03/05/24 Loc: ER Room: Type: [facility] ER Attending Dr: Ordering Provider: Devika [...] Confirmed by DEVIKA DE LA GARZA DO ([id number]) on 03/06/2024 1:44:25 AM Referred By: Electronically Signed By: DEVIKA DE LA GARZA DO Transcribed By: MUS Signed By Devika De La Garza DO 03/06 0144 Normal [facility] Quick Strepon 03-05-2024 Quick Strep Streptococcus pyogen es Ag [Presence] in Throat by Rapid immunoassay Negative for Group A Strep Antigen Note 1 NOTE 2 Results are those of a screening test. NOTE 3 If clinically indicated please order a culture. NOTE 4 NOTE 5 Reference range = Negative PERFORMED BY: [place] [address] PATHOLOGIST EDUCATION DEAN LION STANLEY M.D. Normal [facility] Comment on above: Performed By: #### B IOFIRECOVNOTDE, QS, RESP PANEL UPP. #### [address] Respiratory (Upper) Panel, P CRon 03-05-2024 [...] A H3 Blank Space ------ PERFORMED BY: [facility] [address] [place] [address] PATHOLOGIST EDUCATION DEAN LION STANLEY M.D. Normal [facility] Comment on above: Performed By: #### B IOFIRECOVNOTDE, QS, RESP PANEL UPP. #### [facility] [address] Respiratory pathogens DNA an d RNA panel - Nasopharynx by YANET with non-probe detectionOrdered By: Devika De La Garza on 03-05-2024 Respiratory pathogens DNA and RNA panel YANET+non-probe (Nph) [facility] Streptococcus pyogenes antig en detectionOrdered By: Devika De La Garza on 03-05-2024 S. pyogenes Ag Ql (Unsp spec) [facility] XR chest 1V portableon 03-05 XR chest 1V portable [facility] [address] [place] [address] [place] [address] XRay Report Signed Patient: Jaleesa Arrieta MR#: [id number] [birth year] : 1990 Acct:[id number] Age/Sex: 33 / F ADM Date: 03/05/24 Loc: ER Room: Type: [facility] ER Attending Dr: Copies to: Devika [...] Priscilla Cunningham M.D.03/05/2024 9:34 PM Dictation Location: [place] [address] Transcribed By: LIDA 03/05/242133 Dictated By: Priscilla Cunningham MD 03/05/242130 Signed By: 03/05/242133 Normal [facility] Quick Strepon 02-26-2024 Quick Strep Streptococcus pyogen es Ag [Presence] in Throat by Rapid immunoassay Negative for Group A Strep Antigen Note 1 NOTE 2 Results are those of a screening test. NOTE 3 If clinically indicated please order a culture. NOTE 4 NOTE 5 Reference range = Negative PERFORMED BY: [place] [address] PATHOLOGIST EDUCATION DEAN LION STANLEY M.D. Normal [facility] Comment on above: Performed By: #### Q S #### [address] Streptococcus pyogenes antig en detectionOrdered By: Ck To on 02-26-2024 S. pyogenes Ag Ql (Unsp spec) [facility] Urinalysis macro (dipstick) panel (U)on 02-23-2024 Bilirubin, UA Negative Negative - 4(70) +++ mg/dL [facility] Blood, UA Negative Negative - 50 Bradley/mcL [facility] Clarity, UA Clear [facility] Color, UA Yellow [facility] Glucose, UA Negative Negative - 1999(110) ++++ mg/dL [facility] Interpretation and review of laboratory results Abnormal [facility] Ketones, UA Negative Negative - 160(16) ++++ mg/dL [facility] Leukocytes, UA Positive Negative - 500+++ Gabby/mcL [facility] Comment on above: small Nitrite, UA Negative Negative - Positive [facility] pH, UA 7 5 - 9 [facility] Protein, UA Negative Negative - 1999(20) ++++ mg/dL [facility] Spec Grav, UA 1.02 1 - 1.03 [facility] Urobilinogen, UA 0.2 0.2 - 12 mg/dL [facility] ALL THYROID STIM HORMONEon 0 - TSH Qn 2.645 m[IU]/L [facility] Alanine aminotransferase [En zymatic activity/volume] in Serum or PlasmaOrdered By: Marychuy Kyle on 10-06-2023 ALT [Catalytic activity/Vol] 13 U/L Normal 7-52 [facility] Comment on above: Performed By: #### C BC, CMP, HCGQNT #### [facility] [address] [place] [address] [place] Albumin [Mass/volume] in Ser um or Plasma by Bromocresol green (BCG) dye binding methoOrdered By: Marychuy Jeronimoimore on 10-06-2023 Albumin BCG dye [Mass/Vol] 3.8 g/dL 3.5-5.7 [facility] Alkaline phosphatase [Enzyma tic activity/volume] in Serum or PlasmaOrdered By: Marychuy Jeronimoimore on 10-06-2023 ALP [Catalytic activity/Vol] 61 U/L Normal 34-104 [facility] Comment on above: Performed By: #### C BC, CMP, HCGQNT #### [facility] [address] [place] [address] [place] Aspartate aminotransferase [ Enzymatic activity/volume] in Serum or PlasmaOrdered By: Marychuy Jeronimoimore on 10-06-2023 AST [Catalytic activity/Vol] 13 U/L Normal 13-39 [facility] Comment on above: Performed By: #### C BC, CMP, HCGQNT #### [address] Automated basophil %Ordered By: Marychuy Bullimore on 10-06-2023 Basophils/100 WBC (Bld) 0.6 % Normal . [facility] Comment on above: Performed By: #### C BC, CMP, HCGQNT #### [address] Automated basophil countOrde red By: Marychuy Bullimore on 10-06-2023 Basophils (Bld) [#/Vol] 0.0 10*3/uL Normal 0.0-0.2 [facility] Comment on above: Result Comment: PERF ORMED BY: [place] [address] PATHOLOGIST EDUCATION DEAN LION STANLEY M.D. Performed By: #### C BC, CMP, HCGQNT #### [address] Automated blood monocyte cou ntOrdered By: Marychuy Bullimore on 10-06-2023 Monocytes (Bld) [#/Vol] 0.5 10*3/uL Normal 0.0-0.8 [facility] Comment on above: Performed By: #### C BC, CMP, HCGQNT #### [address] Automated eosinophil %Ordere d By: Marychuy Bullimore on 10-06-2023 Eosinophils/100 WBC (Bld) 0.7 % Normal . [facility] Comment on above: Performed By: #### C BC, CMP, HCGQNT #### [address] Automated eosinophil countOr dered By: Marychuy Bullimore on 10-06-2023 Eosinophils (Bld) [#/Vol] 0.1 10*3/uL Normal 0.0-0.45 [facility] Comment on above: Performed By: #### C BC, CMP, HCGQNT #### [address] [place] [address] [place] Automated epithelial cells c ount in urine sediment (number/area)Ordered By: Marychuy Kyle on 10-06-2023 Epithelial cells Auto (Urine sed) [#/Area] 3-4 [HPF] 0-2 [facility] Automated monocyte %Ordered By: Marychuy Wangore on 10-06-2023 Monocytes/100 WBC (Bld) 6.7 % Normal . [facility] Comment on above: Performed By: #### C BC, CMP, HCGQNT #### [address] Automated neutrophil %Ordere d By: Marychuy Wangore on 10-06-2023 Neutrophils/100 WBC (Bld) 54.4 % Normal . [facility] Comment on above: Performed By: #### C BC, CMP, HCGQNT #### [address] Bacteria [Presence] in Urine by AutomatedOrdered By: Marychuy Kyle on 10-06-2023 Bacteria Auto Ql (U) None seen [HPF] None Seen [facility] Bilirubin Test strip Ql (U)O rdered By: Marychuy Kyle on 10-06-2023 Bilirubin Ql (U) Negative Negative [facility] Bilirubin.total [Mass/volume ] in Serum or PlasmaOrdered By: Marychuy Kyle on 10-06-2023 Bilirubin [Mass/Vol] 0.2 mg/dL Low 0.3-1.0 [facility] Comment on above: Performed By: #### C BC, CMP, HCGQNT #### [facility] [address] [place] [address] [place] Calcium [Mass/volume] in Ser um or PlasmaOrdered By: Marychuy Bullimore on 10-06-2023 Calcium [Mass/Vol] 9.4 mg/dL Normal 8.6-10.3 [facility] Comment on above: Performed By: #### C BC, CMP, HCGQNT #### [facility] [address] [place] [address] [place] Carbon dioxide, total [Moles /volume] in Serum or PlasmaOrdered By: Marychuy Bullimore on 10-06-2023 CO2 [Moles/Vol] 25.5 mmol/L Normal 21.0-31.0 [facility] Comment on above: Performed By: #### C BC, CMP, HCGQNT #### [facility] [address] Chloride [Moles/volume] in S sondra or PlasmaOrdered By: Marychuy Bullimore on 10-06-2023 Chloride [Moles/Vol] 105 mmol/L Normal 98-107 [facility] Comment on above: Performed By: #### C BC, CMP, HCGQNT #### [address] Choriogonadotropin.beta subu nit [Units/volume] in Serum or PlasmaOrdered By: Marychuy Bullimore on 10-06-2023 HCG.beta subunit Qn 2799.00 m[IU]/mL [facility] Comment on above: Approximate Approxim ate hCG Gestational Age Range (mIU/ml) (weeks)0.2-1 5-50 1-2 50-500 2-3 100-5,000 3-4 500-10,000 4-5 1,000-50,000 5-6 10,000-100,000 6-8 15,000-200,000 8-12 10,000-100,000 Color of Urine by AutoOrdere d By: Marychuy Wangore on 10-06-2023 Color (U) Yellow Normal Yellow [facility] Comment on above: Order Comment: NEED MORE SPECIMEN Name Collection Type:: Clean-Voided Midstream Performed By: #### A DDONUAPLUS #### [address] Complete Blood Count Auto Di ffon 10-06-2023 Mean Corpuscular HGB Conc 34.4 g/dL Normal 32.0-35.0 [facility] Comment on above: Performed By: #### C BC, CMP, HCGQNT #### [place] [address] [place] Monocytes/100 WBC (Bld) 17.37 % Normal 0.00-20.00 [facility] Comment on above: Performed By: #### C BC, CMP, HCGQNT #### [address] NRBC% 0.2 /100{WBC} Normal 0-0.5 [facility] Comment on above: Performed By: #### C BC, CMP, HCGQNT #### [address] Comprehensive Metabolic Pane panchito 10-06-2023 Albumin [Mass/Vol] 3.8 g/dL Normal 3.5-5.7 [facility] Comment on above: Performed By: #### C BC, CMP, HCGQNT #### [address] Creatinine Clr Calc Pharmacy 180.48 Normal [facility] Comment on above: Performed By: #### C BC, CMP, HCGQNT #### [address] GFR/1.73 sq M.predicted MDRD (S/P/Bld) [Vol rate/Area] mL/min/{1.73_m2} Normal [facility] Comment on above: Performed By: #### C BC, CMP, HCGQNT #### [address] Creatinine [Mass/volume] in Serum or PlasmaOrdered By: Marychuy Kyle on 10-06-2023 Creatinine [Mass/Vol] 0.63 mg/dL Normal 0.60-1.20 [facility] Comment on above: Performed By: #### C BC, CMP, HCGQNT #### [place] [address] [place] Dipstick and Microscopicon 0 10-06-2023 Appearance (U) Clear Normal Clear [facility] Comment on above: Order Comment: NEED MORE SPECIMEN Name Collection Type:: Clean-Voided Midstream Performed By: #### A DDONUAPLUS #### [address] Bacteria,Urine None Seen Normal None Seen [facility] Comment on above: Order Comment: NEED MORE SPECIMEN Name Collection Type:: Clean-Voided Midstream Performed By: #### A DDONUAPLUS #### [facility] [address] Bilirubin,Urine Negative Normal Negative [facility] Comment on above: Order Comment: NEED MORE SPECIMEN Name Collection Type:: Clean-Voided Midstream Performed By: #### A DDONUAPLUS #### [address] Glucose Ql (U) Normal Normal Normal [facility] Comment on above: Order Comment: NEED MORE SPECIMEN Name Collection Type:: Clean-Voided Midstream Performed By: #### A DDONUAPLUS #### [address] Hyaline Casts,Urine 0-8 Normal 0-8 [facility] Comment on above: Order Comment: NEED MORE SPECIMEN Name Collection Type:: Clean-Voided Midstream Result Comment: PERF ORMED BY: [place] [address] PATHOLOGIST EDUCATION DEAN LION STANLEY M.D. Performed By: #### A DDONUAPLUS #### [address] Ketones Ql (U) Negative Normal Negative [facility] Comment on above: Order Comment: NEED MORE SPECIMEN Name Collection Type:: Clean-Voided Midstream Performed By: #### A DDONUAPLUS #### [address] Leukocyte esterase Test strip Ql (U) 1+ High Negative [facility] Comment on above: Order Comment: NEED MORE SPECIMEN Name Collection Type:: Clean-Voided Midstream Performed By: #### A DDONUAPLUS #### [place] [address] [place] Nitrite,Urine Negative Normal Negative [facility] Comment on above: Order Comment: NEED MORE SPECIMEN Name Collection Type:: Clean-Voided Midstream Performed By: #### A DDONUAPLUS #### [place] [address] [place] Occult Blood,Urine Negative Normal Negative [facility] Comment on above: Order Comment: NEED MORE SPECIMEN Name Collection Type:: Clean-Voided Midstream Result Comment: PERF ORMED BY: [place] [address] PATHOLOGIST EDUCATION DEAN LION STANLEY M.D. Performed By: #### A DDONUAPLUS #### [place] [address] [place] Protein,Urine Negative Normal Negative [facility] Comment on above: Order Comment: NEED MORE SPECIMEN Name Collection Type:: Clean-Voided Midstream Performed By: #### A DDONUAPLUS #### [address] RBC LM.HPF (Urine sed) [#/Area] 0 /[HPF] Normal 0-4 [facility] Comment on above: Order Comment: NEED MORE SPECIMEN Name Collection Type:: Clean-Voided Midstream Performed By: #### A DDONUAPLUS #### [place] [address] [place],Urine 1.017 Normal 1.001-1.030 [facility] Comment on above: Order Comment: NEED MORE SPECIMEN Name Collection Type:: Clean-Voided Midstream Performed By: #### A DDONUAPLUS #### [place] [address] [place] Squamous Epithelial Cell,Urine 3-4 High 0-2 [facility] Comment on above: Order Comment: NEED MORE SPECIMEN Name Collection Type:: Clean-Voided Midstream Performed By: #### A DDONUAPLUS #### [place] [address] [place] Urobilinogen,Urine Normal Normal Normal [facility] Comment on above: Order Comment: NEED MORE SPECIMEN Name Collection Type:: Clean-Voided Midstream Performed By: #### A DDONUAPLUS #### [place] [address] [place] WBC,Urine 3-4 Normal 0-4 [facility] Comment on above: Order Comment: NEED MORE SPECIMEN Name Collection Type:: Clean-Voided Midstream Performed By: #### A DDONUAPLUS #### [address] Erythrocyte distribution wid th [Ratio] by Automated countOrdered By: Marychuy Kyle on 10-06-2023 Erythrocyte distribution width (RBC) [Ratio] 13.4 % Normal 11.9-15.3 [facility] Comment on above: Performed By: #### C BC, CMP, HCGQNT #### [address] Erythrocytes [#/area] in Uri ne sediment by Automated countOrdered By: Marychuy Kyle on 10-06-2023 RBC Auto (Urine sed) [#/Area] 0-1 [HPF] 0-4 [facility] Erythrocytes [#/volume] in B lood by Automated countOrdered By: Marychuy Kyle on 10-06-2023 RBC (Bld) [#/Vol] 4.08 10*6/uL Normal 3.60-5.00 [facility] Comment on above: Performed By: #### C BC, CMP, HCGQNT #### [address] Glucose [Mass/volume] in Ser um or PlasmaOrdered By: Marychuy Kyle on 10-06-2023 Glucose [Mass/Vol] 100 mg/dL Normal 70-100 [facility] Comment on above: ADA recommended refe rence rangeRandom Glucose Reference Range is dependent on time and content of last meal. Glucose of more than 200 mg/dL in a nonstressed, ambulatory subject supports the diagnosis of Diabetes Mellitus. Result Comment: [place] om Glucose Reference Range is dependent on time and content of last meal. Glucose of more than 200 mg/dL in a nonstressed, ambulatory subject supports the diagnosis of Diabetes Mellitus. ADA recommended reference range Performed By: #### C BC, CMP, HCGQNT #### [address] HCG,Quantitativeon HCG,Quantitative 2799.00 m[iU]/mL Normal [facility] Comment on above: Result Comment: Appr oximate Approximate hCG Gestational Age Range (mIU/ml) (weeks) 0.2-1 5-50 1-2 50-500 2-3 100-5,000 3-4 500-10,000 4-5 1,000-50,000 5-6 10,000-100,000 6-8 15,000-200,000 8-12 10,000-100,000 PERFORMED BY: [place] [address] PATHOLOGIST EDUCATION DEAN LION STANLEY M.D. Performed By: #### C BC, CMP, HCGQNT #### [address] Hematocrit [Volume Fraction] of Blood by Automated countOrdered By: Marychuy Kyle on 10-06-2023 Hematocrit (Bld) [Volume fraction] 36.7 % Normal 34.0-46.4 [facility] Comment on above: Performed By: #### C BC, CMP, HCGQNT #### [facility] [address] [place] [address] Hemoglobin [Mass/volume] in BloodOrdered By: Marychuy Kyle on 10-06-2023 Hemoglobin (Bld) [Mass/Vol] 12.6 g/dL Normal 11.8-15.4 [facility] Comment on above: Performed By: #### C BC, CMP, HCGQNT #### [address] Ketones Auto test strip (U) [Mass/Vol]Ordered By: Marychuy Kyle on 10-06-2023 Ketones (U) [Mass/Vol] Negative Negative [facility] Laboratory - UrinalysisOrder ed By: Marychuy Kyle on 10-06-2023 Hyaline casts LM Ql (Urine sed) 0-8 [LPF] 0-8 [facility] Leukocytes [#/area] in Urine sediment by Automated countOrdered By: Marychuy Kyle on 10-06-2023 WBC Auto (Urine sed) [#/Area] 3-4 [HPF] 0-4 [facility] Leukocytes [#/volume] correc inocencia for nucleated erythrocytes in Blood by Automated counOrdered By: Marychuy Jeronimoimore on 10-06-2023 WBC corrected for nucl RBC Auto (Bld) [#/Vol] 7.4 10*3/uL 3.8-11.6 [facility] Leukocytes [#/volume] in Blo od by Automated countOrdered By: Marychuy Jeronimoimore on 10-06-2023 WBC (Bld) [#/Vol] 7.4 10*3/uL Normal 3.8-11.6 [facility] Comment on above: Performed By: #### C BC, CMP, HCGQNT #### [facility] [address] [place] [address] [place] Lymphocytes [#/volume] in Bl ood by Automated countOrdered By: Marychuy Kyle on 10-06-2023 Lymphocytes (Bld) [#/Vol] 2.8 10*3/uL Normal 1.00-4.8 [facility] Comment on above: Performed By: #### C BC, CMP, HCGQNT #### [facility] [address] [place] [address] [place] Lymphocytes/100 leukocytes i n Blood by Automated countOrdered By: Marychuy Jeronimoimore on 10-06-2023 Lymphocytes/100 WBC (Bld) 37.6 % Normal . [facility] Comment on above: Performed By: #### C BC, CMP, HCGQNT #### [facility] [address] [place] [address] [place] MCH [Entitic mass] by Automa inocencia countOrdered By: Marychuy Kathleenore on 10-06-2023 MCH (RBC) [Entitic mass] 31.0 pg Normal 24.7-34.3 [facility] Comment on above: Performed By: #### C BC, CMP, HCGQNT #### [facility] [address] [place] [address] [place] MCHC Auto (RBC) [Mass/Vol]Or dered By: Marychuy Bullimore on 10-06-2023 MCHC (RBC) [Mass/Vol] 34.4 g/dL 32.0-35.0 [facility] MCV [Entitic volume] by Auto mated countOrdered By: Marychuy Kyle on 10-06-2023 MCV (RBC) [Entitic vol] 90.1 fL Normal 80-100 [facility] Comment on above: Performed By: #### C BC, CMP, HCGQNT #### [facility] [address] Monocyte distribution width [Entitic volume] in Blood by AutomatedOrdered By: Marychuy Kyle on 10-06-2023 Monocyte distribution width Auto (Bld) [Entitic vol] 17.37 % 0.00-20.00 [facility] Neutrophils [#/volume] in Bl ood by Automated countOrdered By: Marychuy Kyle on 10-06-2023 Neutrophils (Bld) [#/Vol] 4.0 10*3/uL Normal 1.8-7.7 [facility] Comment on above: Performed By: #### C BC, CMP, HCGQNT #### [facility] [address] Nitrite Test strip Ql (U)Ord ered By: Marychuy Kyle on 10-06-2023 Nitrite Ql (U) Negative Negative [facility] No Panel InformationOrdered By: Marychuy Kyle on 10-06-2023 Estimated GFR (CKD-EPI) > 60.0 mL/Min [facility] Creatinine Clearance (Chem 180.48 [facility] Nucleated erythrocytes [Pres ence] in Blood by Automated countOrdered By: Marychuy Kyle on 10-06-2023 Nucleated RBC Auto Ql (Bld) 0.2 /100{WBC} 0-0.5 [facility] Platelet mean volume [Entiti c volume] in Blood by Automated countOrdered By: Marychuy Kyle on 10-06-2023 Platelet mean volume (Bld) [Entitic vol] 7.5 fL Normal 6.3-10.7 [facility] Comment on above: Performed By: #### C BC, CMP, HCGQNT #### [facility] [address] [place] [address] Platelets [#/volume] in Bloo d by Automated countOrdered By: Marychuy Bullimore on 10-06-2023 Platelets (Bld) [#/Vol] 367 10*3/uL Normal 150-450 [facility] Comment on above: Performed By: #### C BC, CMP, HCGQNT #### [address] Potassium [Moles/volume] in Serum or PlasmaOrdered By: Marychuy Bullimore on 10-06-2023 Potassium [Moles/Vol] 4.1 mmol/L Normal 3.5-5.1 [facility] Comment on above: Performed By: #### C BC, CMP, HCGQNT #### [address] Protein Auto test strip (U) [Mass/Vol]Ordered By: Marychuy Bullimore on 10-06-2023 Protein (U) [Mass/Vol] Negative Negative [facility] Protein [Mass/volume] in Ser um or PlasmaOrdered By: Marychuy Bullimore on 10-06-2023 Protein [Mass/Vol] 7.4 g/dL Normal 6.4-8.9 [facility] Comment on above: Performed By: #### C BC, CMP, HCGQNT #### [address] Serum globulin measurement b y calculation (mass/volume)Ordered By: Marychuy Bullimore on 10-06-2023 Globulin (S) [Mass/Vol] 3.6 g/dL Normal [facility] Comment on above: Performed By: #### C BC, CMP, HCGQNT #### [facility] [address] [place] [address] Serum or plasma albumin/glob ulin mass ratioOrdered By: Marychuy Bullimore on 10-06-2023 Albumin/Globulin [Mass ratio] 1.1 {ratio} [facility] Comment on above: Performed By: #### C BC, CMP, HCGQNT #### [address] Serum or plasma anion gap de terminationOrdered By: Marychuy Phaniimore on 10-06-2023 Anion gap [Moles/Vol] 12.6 mmol/L Normal 6.0-15.0 [facility] Comment on above: Performed By: #### C BC, CMP, HCGQNT #### [place] [address] [place] Sodium [Moles/volume] in Ser um or PlasmaOrdered By: Marychuy Bullimore on 10-06-2023 Sodium [Moles/Vol] 139 mmol/L Normal 136-145 [facility] Comment on above: Performed By: #### C BC, CMP, HCGQNT #### [address] Specific gravity Auto test s trip (U) [Rel density]Ordered By: Marychuy Kyle on 10-06-2023 Specific gravity (U) [Rel density] 1.017 1.001-1.030 [facility] Urea nitrogen [Mass/volume] in Serum or PlasmaOrdered By: Marychuy Jeronimoimdianne on 10-06-2023 Urea nitrogen [Mass/Vol] 7 mg/dL Normal 7-25 [facility] Comment on above: Performed By: #### C BC, CMP, HCGQNT #### [address] Urine clarity by refractomet ry automatedOrdered By: Marychuy Kyle on 10-06-2023 Clarity Refractometry automated (U) Clear Clear [facility] Urine glucose measurement by automated test strip (mass/volume)Ordered By: Marychuy Kyle on 10-06-2023 Glucose Auto test strip (U) [Mass/Vol] Normal mg/dL Normal [facility] Urine hemoglobin detection b y automated test stripOrdered By: Marychuy Kyle on 10-06-2023 Hemoglobin Auto test strip Ql (U) Negative Negative [facility] Urine leukocyte esterase det ection by automated test stripOrdered By: Marychuy Kyle on 10-06-2023 Leukocyte esterase Auto test strip Ql (U) 1+ Negative [facility] Urine pH measurement by auto mated test stripOrdered By: Marychuy Kyle on 10-06-2023 pH (U) 7.0 [pH] Normal 5.0-9.0 [facility] Comment on above: Order Comment: NEED MORE SPECIMEN Name Collection Type:: Clean-Voided Midstream Performed By: #### A DDONUAPLUS #### [facility] [address] Urobilinogen Auto test strip (U) [Mass/Vol]Ordered By: Marychuy Kyle on 10-06-2023 Urobilinogen (U) [Mass/Vol] Normal mg/dL Normal [facility] Basia 09-11-2023 LIZ Telephone (MARTIN) -------- JALEESA ARRIETA ([id number]) 1990 F Date Time Provider Department 09/11/23 [...] Date Reviewed: 08/20/2023 Reviewed by: Tonya Senior APRN.ELECTRONIC ENGINEERING DRAFTSPERSON - Fully Assessed Reason for Visit: Results [...] Status:Closed by TONYA SENIOR on 09/23/23 Normal [facility] NICOTINE AND METAB, URon URIN ANABASINE QUANT <5 Normal [facility] Comment on above: Order Comment: Speci men Type: URINE SPECIMEN Ordering Facility: [facility] Address: [address] [place] [address] Performed By: #### U NICOT #### [facility] CLIA [id number] [address] [place] [address] URIN COTININE QUANT <15 Normal [facility] Comment on above: Order Comment: Speci men Type: URINE SPECIMEN Ordering Facility: [facility] Address: [address] [place] [address] Performed By: #### U NICOT #### [facility] CLIA [id number] [address] [place] [address] URIN NICOTINE QUANT <15 Normal [facility] Comment on above: Order Comment: Speci men Type: URINE SPECIMEN Ordering Facility: [facility] Address: [address] [place] [address] Result Comment: INTE RPRETIVE INFORMATION: Nicotine and Metabolites, Urine, Quantitative Methodology: Quantitative Liquid Chromatography-Tandem Mass Spectrometry Positive cutoff: Nicotine 15 ng/mL Cotinine 15 ng/mL 4-VA-Obxlnnwl 50 ng/mL Anabasine 5 ng/mL For medical [...] developed and its performance characteristics determined by [facility]. It has not been cleared or approved by the [place] Food and Drug Administration. This test was performed in a CLIA certified laboratory and is intended for clinical purposes. Performed By: [facility] [address] [place] [address] International Student Counselor: Rex Zuleta MD, PhD CLIA Number: [id number] Performed By: #### U NICOT #### [facility] CLIA [id number] [address] [place] [address] URINE 3 [place] COTININE <50 Normal [facility] Comment on above: Order Comment: Speci men Type: URINE SPECIMEN Ordering Facility: [facility] Address: [address] [place] [address] Performed By: #### U NICOT #### [facility] CLIA [id number] [address] [place] [address] TOXICOLOGY SCREEN, ROUTINE U RINEon 09-08-2023 Amphetamines Confirm (U) [Mass/Vol] Negative Normal Negative [facility] Comment on above: Order Comment: Speci men Type: URINE SPECIMEN Ordering Facility: [facility] Address: [address] [place] [address] Result Comment: Cuto ff threshold at 1000 ng/mL. Performed By: #### U TOX2 #### [facility] CLIA [id number] [address] [place] [address] [place] BARBITURATES, URINE Negative Normal Negative [facility] Comment on above: Order Comment: Speci men Type: URINE SPECIMEN Ordering Facility: [facility] Address: [address] [place] [address] Result Comment: Cuto ff threshold at 200 ng/mL. Performed By: #### U TOX2 #### [facility] CLIA [id number] [address] [place] [address] [place] BENZODIAZEPINES, UR Negative Normal Negative [facility] Comment on above: Order Comment: Speci men Type: URINE SPECIMEN Ordering Facility: [facility] Address: [address] [place] [address] Result Comment: Cuto ff threshold at 200 ng/mL. Performed By: #### U TOX2 #### [facility] CLIA [id number] [address] [place] [address] [place] Cannabinoids Screen Ql (U) Negative Normal Negative [facility] Comment on above: Order Comment: Speci men Type: URINE SPECIMEN Ordering Facility: [facility] Address: [address] [place] [address] Result Comment: Cuto ff threshold at 50 ng/mL. Performed By: #### U TOX2 #### [facility] CLIA [id number] [address] [place], [place] [id number] [place] Cocaine Ql (U) Negative Normal Negative [facility] Comment on above: Order Comment: Speci men Type: URINE SPECIMEN Ordering Facility: [facility] Address: [address] [place] [address] Result Comment: Cuto ff threshold at 300 ng/mL. Performed By: #### U TOX2 #### [facility] CLIA [id number] [address] [place] [address] [place] Ethanol (U) [Mass/Vol] <11 Normal <11 [facility] Comment on above: Order Comment: Speci men Type: URINE SPECIMEN Ordering Facility: [facility] Address: [address] [place] [address] Performed By: #### U TOX2 #### [facility] CLIA [id number] [address] [place] [address] [place] Opiates Screen Ql (U) Negative Normal Negative [facility] Comment on above: Order Comment: Speci men Type: URINE SPECIMEN Ordering Facility: [facility] Address: [address] [place] [address] Result Comment: Cuto ff threshold at 300 ng/mL. Performed By: #### U TOX2 #### [facility] CLIA [id number] [address] [place] [address] [place] oxyCODONE cutoff Screen (U) [Mass/Vol] Negative Normal Negative [facility] Comment on above: Order Comment: Speci men Type: URINE SPECIMEN Ordering Facility: [facility] Address: [address] [place] [address] Result Comment: Cuto ff threshold at 100 ng/mL. Performed By: #### U TOX2 #### [facility] CLIA [id number] [address] [place] [address] [place] Phencyclidine Ql (U) Negative Normal Negative [facility] Comment on above: Order Comment: Speci men Type: URINE SPECIMEN Ordering Facility: [facility] Address: [address] [place] [address] Result Comment: Cuto ff threshold at 25 ng/mL. Performed By: #### U TOX2 #### [facility] CLIA [id number] [address] [place] [address] [place] 25(OH)D3 SerPl-mCncon 2023 25-hydroxyvitamin D3 [Mass/Vol] 11.9 ng/mL Low 31.0-80.0 [facility] Comment on above: Order Comment: Speci men Type: BLOOD SPECIMEN Ordering Facility: [facility] Address: [address] [place] [address] Performed By: #### 2 276-4, 2132-01, 2283-12 #### [facility] CLIA [id number] [address] [place] [address] [place] CBC W Auto Differential pane l (Bld)on 09-05-2023 Basophils (Bld) [#/Vol] 10*3/uL Normal <0.11 [facility] Comment on above: Order Comment: Speci men Type: BLOOD SPECIMEN Ordering Facility: [facility] Address: [address] [place] [address] Performed By: #### 2 276-4, 2132-01, 2283-12 #### [facility] CLIA [id number] [address] [place] [address] [place] Basophils/100 WBC (Bld) 0.3 % Normal [facility] Comment on above: Order Comment: Speci men Type: BLOOD SPECIMEN Ordering Facility: [facility] Address: [address] [place] [address] Performed By: #### 2 276-4, 2132-01, 2283-12 #### [facility] CLIA [id number] [address] [place] [address] [place] Differential cell count method Nom (Bld) Auto Normal [facility] Comment on above: Order Comment: Speci men Type: BLOOD SPECIMEN Ordering Facility: [facility] Address: [address] [place] [address] Performed By: #### 2 276-4, 2132-01, 2283-12 #### [facility] CLIA [id number] [address] [place] [address] [place] Eosinophils (Bld) [#/Vol] 0.09 10*3/uL Normal <0.46 [facility] Comment on above: Order Comment: Speci men Type: BLOOD SPECIMEN Ordering Facility: [facility] Address: [address] [place] [address] Performed By: #### 2 276-4, 2132-01, 2283-12 #### [facility] CLIA [id number] [address] [place] [address] [place] Eosinophils/100 WBC (Bld) 1.3 % Normal [facility] Comment on above: Order Comment: Speci men Type: BLOOD SPECIMEN Ordering Facility: [facility] Address: [address] [place] [address] Performed By: #### 2 276-4, 2132-01, 2283-12 #### [facility] CLIA [id number] [address] [place] [address] [place] Erythrocyte distribution width (RBC) [Ratio] 12.6 % Normal 11.5-15.0 [facility] Comment on above: Order Comment: Speci men Type: BLOOD SPECIMEN Ordering Facility: [facility] Address: [address] [place] [address] Performed By: #### 2 276-4, 2132-01, 2283-12 #### [facility] CLIA [id number] [address] [place] [address] [place] Hematocrit (Bld) [Volume fraction] 38.0 % Normal 36.0-46.0 [facility] Comment on above: Order Comment: Speci men Type: BLOOD SPECIMEN Ordering Facility: [facility] Address: [address] [place] [address] Performed By: #### 2 276-4, 9, 2283-12 #### [facility] CLIA [id number] [address] [place] [address] [place] Hemoglobin (Bld) [Mass/Vol] 12.8 g/dL Normal 11.5-15.5 [facility] Comment on above: Order Comment: Speci men Type: BLOOD SPECIMEN Ordering Facility: [facility] Address: [address] [place] [address] Performed By: #### 2 276-4, 9, 2283-12 #### [facility] CLIA [id number] [address] [place] [address] [place] Immature granulocytes (Bld) [#/Vol] 10*3/uL Normal <0.10 [facility] Comment on above: Order Comment: Speci men Type: BLOOD SPECIMEN Ordering Facility: [facility] Address: [address] [place] [address] Performed By: #### 2 276-4, 2132-01, 2283-12 #### [facility] CLIA [id number] [address] [place] [address] [place] Immature granulocytes/100 WBC (Bld) 0.1 % Normal [facility] Comment on above: Order Comment: Speci men Type: BLOOD SPECIMEN Ordering Facility: [facility] Address: [address] [place] [address] Performed By: #### 2 276-4, 2132-01, 2283-12 #### [facility] CLIA [id number] [address] [place] [address] [place] Lymphocytes (Bld) [#/Vol] 3.49 10*3/uL Normal 1.00-4.00 [facility] Comment on above: Order Comment: Speci men Type: BLOOD SPECIMEN Ordering Facility: [facility] Address: [address] [place] [address] Performed By: #### 2 276-4, 2132-01, 2283-12 #### [facility] CLIA [id number] [address] [place] [address] [place] Lymphocytes/100 WBC (Bld) 48.6 % Normal [facility] Comment on above: Order Comment: Speci men Type: BLOOD SPECIMEN Ordering Facility: [facility] Address: [address] [place] [address] Performed By: #### 2 276-4, 2132-01, 2283-12 #### [facility] CLIA [id number] [address] [place] [address] [place] MCH (RBC) [Entitic mass] 30.0 pg Normal 26.0-34.0 [facility] Comment on above: Order Comment: Speci men Type: BLOOD SPECIMEN Ordering Facility: [facility] Address: [address] [place] [address] Performed By: #### 2 276-4, 2132-01, 2283-12 #### [facility] CLIA [id number] [address] [place] [address] [place] MCHC (RBC) [Mass/Vol] 33.7 g/dL Normal 30.5-36.0 [facility] Comment on above: Order Comment: Speci men Type: BLOOD SPECIMEN Ordering Facility: [facility] Address: [address] [place] [address] Performed By: #### 2 276-4, 2132-01, 2283-12 #### [facility] CLIA [id number] [address] [place] [address] [place] MCV (RBC) [Entitic vol] 89.2 fL Normal 80.0-100.0 [facility] Comment on above: Order Comment: Speci men Type: BLOOD SPECIMEN Ordering Facility: [facility] Address: [address] [place] [address] Performed By: #### 2 276-4, 2132-01, 2283-12 #### [facility] CLIA [id number] [address] [place] [address] [place] Monocytes (Bld) [#/Vol] 0.48 10*3/uL Normal <0.87 [facility] Comment on above: Order Comment: Speci men Type: BLOOD SPECIMEN Ordering Facility: [facility] Address: [address] [place] [address] Performed By: #### 2 276-4, 2132-01, 2283-12 #### [facility] CLIA [id number] [address] [place] [address] [place] Monocytes/100 WBC (Bld) 6.7 % Normal [facility] Comment on above: Order Comment: Speci men Type: BLOOD SPECIMEN Ordering Facility: [facility] Address: [address] [place] [address] Performed By: #### 2 276-4, 2132-01, 2283-12 #### [facility] CLIA [id number] [address] [place] [address] [place] Neutrophils (Bld) [#/Vol] 3.09 10*3/uL Normal 1.45-7.50 [facility] Comment on above: Order Comment: Speci men Type: BLOOD SPECIMEN Ordering Facility: [facility] Address: [address] [place] [address] Performed By: #### 2 276-4, 2132-01, 2283-12 #### [facility] CLIA [id number] [address] [place], [place] [address] [place] Neutrophils/100 WBC (Bld) 43.0 % Normal [facility] Comment on above: Order Comment: Speci men Type: BLOOD SPECIMEN Ordering Facility: [facility] Address: [address] [place] [address] Performed By: #### 2 276-4, 2132-01, 2283-12 #### [facility] CLIA [id number] [address] [place] [address] [place] Nucleated RBC (Bld) [#/Vol] 10*3/uL Normal <0.01 [facility] Comment on above: Order Comment: Speci men Type: BLOOD SPECIMEN Ordering Facility: [facility] Address: [address] [place] [address] Performed By: #### 2 276-4, 2132-01, 2283-12 #### [facility] CLIA [id number] [address] [place] [address] [place] Nucleated RBC/100 WBC (Bld) [Ratio] 0.0 /100 WBC Normal [facility] Comment on above: Order Comment: Speci men Type: BLOOD SPECIMEN Ordering Facility: [facility] Address: [address] [place] [address] Performed By: #### 2 276-4, 2132-01, 2283-12 #### [facility] CLIA [id number] [address] [place] [address] [place] Platelet mean volume (Bld) [Entitic vol] 9.2 fL Normal 9.0-12.7 [facility] Comment on above: Order Comment: Speci men Type: BLOOD SPECIMEN Ordering Facility: [facility] Address: [address] [place] [address] Performed By: #### 2 276-4, 2132-01, 2283-12 #### [facility] CLIA [id number] [address] [place] [address] [place] Platelets (Bld) [#/Vol] 361 10*3/uL Normal 150-400 [facility] Comment on above: Order Comment: Speci men Type: BLOOD SPECIMEN Ordering Facility: [facility] Address: [address] [place] [address] Performed By: #### 2 276-4, 2132-01, 2283-12 #### [facility] CLIA [id number] [address] [place] [address] [place] [place] RBC (Bld) [#/Vol] 4.26 10*6/uL Normal 3.90-5.20 [facility] Comment on above: Order Comment: Speci men Type: BLOOD SPECIMEN Ordering Facility: [facility] Address: [address] [place] [address] Performed By: #### 2 276-4, 2-9, 4-8 #### [facility] CLIA [id number] [address] [place] [address] [place] WBC (Bld) [#/Vol] 7.18 10*3/uL Normal 3.70-11.00 [facility] Comment on above: Order Comment: Speci men Type: BLOOD SPECIMEN Ordering Facility: [facility] Address: [address] [place] [address] Performed By: #### 2 276-4, 2131-9, 2283-8 #### [facility] CLIA [id number] [address] [place] [address] [place] Comprehensive metabolic 2000 panelon 09-05-2023 Albumin [Mass/Vol] 4.0 g/dL Normal 3.9-4.9 [facility] Comment on above: Order Comment: Speci men Type: BLOOD SPECIMEN Ordering Facility: [facility] Address: [address] [place] [address] Performed By: #### 2 4323-8 #### JULISSA [facility] CLIA [id number] [address] [place] [address] ALP [Catalytic activity/Vol] 91 U/L Normal 34-123 [facility] Comment on above: Order Comment: Speci men Type: BLOOD SPECIMEN Ordering Facility: [facility] Address: [address] [place] [address] Performed By: #### 2 4323-8 #### [facility] CLIA [id number] [address] [place] [address] ALT [Catalytic activity/Vol] 15 U/L Normal 7-38 [facility] Comment on above: Order Comment: Speci men Type: BLOOD SPECIMEN Ordering Facility: [facility] Address: [address] [place] [address] Performed By: #### 2 4323-8 #### [facility] CLIA [id number] [address] [place] [address] Anion gap [Moles/Vol] 10 mmol/L Normal 9-18 [facility] Comment on above: Order Comment: Speci men Type: BLOOD SPECIMEN Ordering Facility: [facility] Address: [address] [id number] Performed By: #### 2 4323-8 #### [facility] CLIA [id number] [address] [place] [address] AST [Catalytic activity/Vol] 13 U/L Normal 13-35 [facility] Comment on above: Order Comment: Speci men Type: BLOOD SPECIMEN Ordering Facility: [facility] Address: [address] [place] [address] Performed By: #### 2 4323-8 #### [facility] CLIA [id number] [address] [place] [address] Bilirubin [Mass/Vol] 0.3 mg/dL Normal 0.2-1.3 [facility] Comment on above: Order Comment: Speci men Type: BLOOD SPECIMEN Ordering Facility: [facility] Address: [address] [place] [address] Performed By: #### 2 4323-8 #### [facility] CLIA [id number] [address] [place] [address] Calcium [Mass/Vol] 9.5 mg/dL Normal 8.5-10.2 [facility] Comment on above: Order Comment: Speci men Type: BLOOD SPECIMEN Ordering Facility: [facility] Address: [address] [place] [address] Performed By: #### 2 4323-8 #### [facility] CLIA [id number] [address] [place] [address] Chloride [Moles/Vol] 106 mmol/L High 97-105 [facility] Comment on above: Order Comment: Speci men Type: BLOOD SPECIMEN Ordering Facility: [facility] Address: [address] [place], [place] [address] Performed By: #### 2 4323-8 #### [facility] CLIA [id number] [address] [place] [address] CO2 [Moles/Vol] 26 mmol/L Normal 22-30 [facility] Comment on above: Order Comment: Speci men Type: BLOOD SPECIMEN Ordering Facility: [facility] Address: [address] [place] [address] Performed By: #### 2 4323-8 #### [facility] CLIA [id number] [address] [place] [address] Creatinine [Mass/Vol] 0.75 mg/dL Normal 0.58-0.96 [facility] Comment on above: Order Comment: Speci men Type: BLOOD SPECIMEN Ordering Facility: [facility] Address: [address] [place] [address] Performed By: #### 2 4323-8 #### [facility] CLIA [id number] [address] [place] [address] Creatinine and Glomerular filtration rate.predicted panel (S/P/Bld) 109 mL/min/1.73m??? Normal >=60 [facility] Comment on above: Order Comment: Speci men Type: BLOOD SPECIMEN Ordering Facility: [facility] Address: [address] [place], [place] [address] Result Comment: Stephani mated Glomerular Filtration Rate [...] GFR. Performed By: #### 2 4323-8 #### [facility] CLIA [id number] [address] [place] [address] Glucose [Mass/Vol] 104 mg/dL High 74-99 [facility] Comment on above: Order Comment: Laury bradshaw Type: BLOOD SPECIMEN Ordering Facility: [facility] Address: [address] [place] [address] Result Comment: The [place] Diabetes Association (ADA) provides guidance for cutoff [...] Standards of Medical Care in Diabetes 2016, [place] Diabetes Association. Diabetes Care. 2016.39(Suppl 1). Performed By: #### 2 4323-8 #### [facility] CLIA [id number] [address] [place] [address] Potassium [Moles/Vol] 4.2 mmol/L Normal 3.7-5.1 [facility] Comment on above: Order Comment: Laury bradshaw Type: BLOOD SPECIMEN Ordering Facility: [facility] Address: [address] [place] [address] Performed By: #### 2 4323-8 #### [facility] CLIA [id number] [address] [place] [address] Protein [Mass/Vol] 7.4 g/dL Normal 6.3-8.0 [facility] Comment on above: Order Comment: Laury bradshaw Type: BLOOD SPECIMEN Ordering Facility: [facility] Address: [address] [place] [address] Performed By: #### 2 4323-8 #### [facility] CLIA [id number] [address] [place] [address] Sodium [Moles/Vol] 142 mmol/L Normal 136-144 [facility] Comment on above: Order Comment: Speci men Type: BLOOD SPECIMEN Ordering Facility: [facility] Address: [address] [place] [address] Performed By: #### 2 4323-8 #### [facility] CLIA [id number] [address] [place] [address] Urea nitrogen [Mass/Vol] 12 mg/dL Normal 7-21 [facility] Comment on above: Order Comment: Speci men Type: BLOOD SPECIMEN Ordering Facility: [facility] Address: [address] [place] [address] Performed By: #### 2 4323-8 #### [facility] CLIA [id number] [address] [place] [address] Ferritin SerPl-mCncon 2023 Ferritin [Mass/Vol] 86.7 ng/mL Normal 14.7-205.1 [facility] Comment on above: Order Comment: Speci men Type: BLOOD SPECIMEN Ordering Facility: [facility] Address: [address] [place] [address] Performed By: #### 2 276-4, 9, 8 #### [facility] CLIA [id number] [address] [place] [address] [place] Folate SerPl-mCncon 09-05-19 24 Folate [Mass/Vol] 12.0 ng/mL Normal >4.7 [facility] Comment on above: Order Comment: Speci men Type: BLOOD SPECIMEN Ordering Facility: [facility] Address: [address] [place] [address] Performed By: #### 2 276-4, 9, 8 #### [facility] CLIA [id number] [address] [place] [address] [place] H. pylori IgG IA Qlon 2023 H. PYLORI IGG, QUAL Negative Normal Negative [facility] Comment on above: Order Comment: Speci men Type: BLOOD SPECIMEN Ordering Facility: [facility] Address: [address] [place] [address] Result Comment: Cash ot exclude H. pylori infection if the specimen collected 3-4 weeks after onset of symptoms. Performed By: #### 2 276-4, 2132-9, 2284-8 #### [facility] CLIA [id number] [address] [place] [address] [place] HbA1c (Bld)on 09-05-2023 Average glucose Estimated from glycated hemoglobin (Bld) [Mass/Vol] 108 mg/dL Normal [facility] Comment on above: Order Comment: Speci augustine Type: BLOOD SPECIMEN Ordering Facility: [facility] Address: [address] [place] [address] Result Comment: eAG: (Estimated average glucose) is a calculated value from HgbA1c and is agency service representative of the average blood glucose level in the last 2-3 month period. Performed By: #### 5 5454-3 #### [facility] CLIA [id number] [address] [place] [address] [place] HbA1c (Bld) [Mass fraction] 5.4 % Normal 4.3-5.6 [facility] Comment on above: Order Comment: Laury bradshaw Type: BLOOD SPECIMEN Ordering Facility: [facility] Address: [address] [place] [address] Result Comment: [place] Diabetes Association guidelines indicate that patients with HgbA1c in the range 5.7-6.4% are at increased risk for development of diabetes, and intervention by lifestyle modification may be beneficial. HgbA1c greater or equal to 6.5% is considered diagnostic of diabetes. Performed By: #### 5 5454-3 #### [facility] CLIA [id number] [address] [place] [address] [place] Iron and Iron binding capaci ty panelon 09-05-2023 Iron [Mass/Vol] 94 ug/dL Normal 41-186 [facility] Comment on above: Order Comment: Laury bradshaw Type: BLOOD SPECIMEN Ordering Facility: [facility] Address: [address] [place] [address] Performed By: #### 5 0190-8, 6-3, 09527-4 #### [facility] CLIA [id number] [address] [place] [address] [place] #### 53734-0 #### [facility] CLIA [id number] [address] [place] [address] [place] [facility] CLIA [id number] [address] [place] [address] Iron binding capacity [Mass/Vol] 310 ug/dL Normal 232-386 [facility] Comment on above: Order Comment: Speci men Type: BLOOD SPECIMEN Ordering Facility: [facility] Address: [address] [place] [address] Performed By: #### 5 0190-8, 6-3, 33521-8 #### [facility] CLIA [id number] [address] [place] [address] [place] #### 29083-0 #### [facility] CLIA [id number] [address] [place] [address] [place] [facility] CLIA [id number] [address] [place] [address] Iron/TIBC [Molar ratio] 30.3 % Normal 15.0-57.0 [facility] Comment on above: Order Comment: Speci men Type: BLOOD SPECIMEN Ordering Facility: [facility] Address: [address] [place], [place] [address] Performed By: #### 5 0190-8, 6-3, 09218-1 #### [facility] CLIA [id number] [address] [place] [address] [place] #### 61642-2 #### [facility] CLIA [id number] [address] [place] [address] [place] [facility] CLIA [id number] [address] [place] [address] Lipid 1996 panelon 4 Cholesterol [Mass/Vol] 179 mg/dL Normal <200 [facility] Comment on above: Order Comment: Speci men Type: BLOOD SPECIMEN Ordering Facility: [facility] Address: [address] [place] [address] Result Comment: <200 mg/dL, Desirable 200-239 mg/dL, Borderline high >239 mg/dL, High Performed By: #### 2 276-4, 2132-01, 2283-12 #### [facility] CLIA [id number] [address] [place] [address] [place] Cholesterol in HDL [Mass/Vol] 45 mg/dL Normal >39 [facility] Comment on above: Order Comment: Speci men Type: BLOOD SPECIMEN Ordering Facility: [facility] Address: [address] [place] [address] Result Comment: 40-5 9 mg/dL, Acceptable >59 mg/dL, High: Negative risk factor for coronary heart disease <40 mg/dL, Low: Positive risk factor for coronary heart disease Performed By: #### 2 276-4, 2132-01, 2283-12 #### [facility] CLIA [id number] [address] [place] [address] [place] Cholesterol in LDL [Mass/Vol] 119 mg/dL High <100 [facility] Comment on above: Order Comment: Speci men Type: BLOOD SPECIMEN Ordering Facility: [facility] Address: [address] [place] [address] Result Comment: <100 mg/dL, Optimal 100-129 mg/dL, Near optimal/above optimal 130-159 mg/dL, Borderline high 160-189 mg/dL, High >189 mg/dL, Very high Secondary prevention optimal LDL Cholesterol levels are recommended to be < 70 mg/dL Performed By: #### 2 276-4, 9, 2283-12 #### [facility] CLIA [id number] [address] [place] [address] [place] Cholesterol in LDL/Cholesterol in HDL [Mass ratio] 2.64 {ratio} High <2.54 [facility] Comment on above: Order Comment: Laury bradshaw Type: BLOOD SPECIMEN Ordering Facility: [facility] Address: [address] [place] [address] Result Comment: Belinda degroot: 1. National Cholesterol Education Program ATP III Guideline At-A-Glance Quick Desk Reference: National Heart, Lung, and Blood [place]. National Institutes of Health. 2001: NIH Publication No. 01-3305. 2. An International Atherosclerosis Society position paper: global recommendations for the management of dyslipidemia: executive summary, Atherosclerosis. 2014: 232(2):410-413. Performed By: #### 2 276-4, 2132-01, 2283-12 #### [facility] CLIA [id number] [address] [place] [address] [place] Cholesterol in VLDL [Mass/Vol] 15 mg/dL Normal <30 [facility] Comment on above: Order Comment: Laury bradshaw Type: BLOOD SPECIMEN Ordering Facility: [facility] Address: [address] [place] [address] Performed By: #### 2 276-4, 2132-01, 2283-12 #### [facility] CLIA [id number] [address] [place] [address] [place] Cholesterol non HDL [Mass/Vol] 134 mg/dL High <130 [facility] Comment on above: Order Comment: Laury bradshaw Type: BLOOD SPECIMEN Ordering Facility: [facility] Address: [address] [place] [address] Result Comment: <130 mg/dL, Optimal 130-159 mg/dL, Near optimal/above optimal 160-189 mg/dL, Borderline high 190-219 mg/dL, High >219 mg/dL, Very high Secondary prevention optimal non HDL Cholesterol levels are recommended to be <100 mg/dL Performed By: #### 2 276-4, 2132-01, 2283-12 #### [facility] CLIA [id number] [address] [place] [address] [place] Cholesterol.total/Cho lesterol in HDL [Mass ratio] 3.98 {ratio} Normal <5.10 [facility] Comment on above: Order Comment: Speci men Type: BLOOD SPECIMEN Ordering Facility: [facility] Address: [address] [place] [address] Performed By: #### 2 276-4, 2132-01, 2283-12 #### [facility] CLIA [id number] [address] [place] [address] [place] FASTING TIME 12 hrs Normal [facility] Comment on above: Order Comment: Speci men Type: BLOOD SPECIMEN Ordering Facility: [facility] Address: [address] [place] [address] Performed By: #### 2 276-4, 2132-01, 2283-12 #### [facility] CLIA [id number] [address] [place] [address] [place] Triglyceride [Mass/Vol] 74 mg/dL Normal <150 [facility] Comment on above: Order Comment: Speci men Type: BLOOD SPECIMEN Ordering Facility: [facility] Address: [address] [place] [address] Result Comment: <150 mg/dL, Normal 150-199 mg/dL, Borderline high 200-499 mg/dL, High >499 mg/dL, Very high Performed By: #### 2 276-4, 2132-01, 2283-12 #### [facility] CLIA [id number] [address] [place] [address] [place] NT-proBNP [facility] 09-04 Natriuretic peptide.B prohormone N-Terminal [Mass/Vol] 48 pg/mL Normal <125 [facility] Comment on above: Order Comment: Speci men Type: BLOOD SPECIMEN Ordering Facility: [facility] Address: [address] [place] [address] Performed By: #### 2 276-4, 2132-01, 2283-12 #### [facility] CLIA [id number] [address] [place] [address] [place] TSH SerPl-aCncon 09-05-2023 TSH Qn 6.440 m[IU]/L High 0.270-4.200 [facility] Comment on above: Order Comment: Specmurray bradshaw Type: BLOOD SPECIMEN Ordering Facility: [facility] Address: [address] [place] [address] Result Comment: If t he patient is , TSH reference range varies by gestational period: First Trimester (weeks 9-12): 0.180-2.990 mIU/L Second Trimester: 0.110-3.980 mIU/L Third Trimester: 0.480-4.710 mIU/L Seth Crews et al. A Practical Approach for the Verifications and Determination of Site- and Trimester-Specific Reference Intervals for Thyroid Function tests in . Thyroid, 2019:29:3:412-420. Zhang Ybarra, et al. 2017 Guidelines of the [place] Thyroid Association for the Diagnosis and Management of Thyroid Disease during and the . Thyroid, 2017:27:3:315-389. Performed By: #### 2 276-4, 2132-9, 2284-8 #### [facility] CLIA [id number] [address] [place] [address] [place] VITAMIN B1 (THIAMINE), WHOLE BLOODon 09-05-2023 Thiamine (Bld) [Moles/Vol] 179.2 nmol/L Normal 84.3-213.3 [facility] Comment on above: Order Comment: Laury bradshaw Type: BLOOD SPECIMEN Ordering Facility: [facility] Address: [address] [place] [address] Result Comment: This assay measures the concentration of thiamine diphosphate (TDP), the primary active form of vitamin B1. Approximately 90 percent of vitamin B1 present in whole blood is TDP. Thiamine and thiamine monophosphate, which comprise the remaining 10 percent, are not measured. This test was developed and its performance characteristics determined by [facility] [place] ([facility]). It has not been cleared or approved by the FDA. [facility] is regulated under CLIA as qualified to perform high-complexity testing. This test is used for clinical purposes. It should not be regarded as investigational or for research. Performed By: #### B 1WB #### [facility] CLIA [id number] [address] [place] [address] [place] Vit B12 SerPl-mCncon 09-04- 024 Cobalamin (Vitamin B12) [Mass/Vol] 612 pg/mL Normal 232-1245 [facility] Comment on above: Order Comment: Speci men Type: BLOOD SPECIMEN Ordering Facility: [facility] Address: [address] [place] [address] Performed By: #### 2 276-4, 2132-9, 2284-8 #### [facility] CLIA [id number] [address] [place] [address] [place] Glucose - FINGER STICKon Glucose [Mass/Vol] 5.4 mg/dL Traity Other PAP ACOG PANEL 2: 30 to 65on 06-10-2022 . . Normal [facility] Comment on above: Result Comment: Perf ormed at: WB Performed By: #### 4 [id number] #### [facility] [address] [place] [address] Dr. Sachin oCates Age Gdln ACOG Testing 30-65 Normal [facility] Comment on above: Performed By: #### 4 [id number] #### [facility] [address] [address] [address] Sachin Coates DIAGNOSIS: Comment Normal [facility] Comment on above: Result Comment: NEGA TIVE FOR INTRAEPITHELIAL LESION OR MALIGNANCY. CELLULAR CHANGES ASSOCIATED WITH INFLAMMATION ARE PRESENT. THIS SPECIMEN WAS RESCREENED PART OF OUR HUMANE AGENT PROGRAM. Performed at: WB Performed By: #### 4 [id number] #### [facility] [address] [place] [address] Dr. Sachin Coates HPV Aptima Negative Normal Negative [facility] Comment on above: Result Comment: This nucleic acid amplification test detects fourteen high-risk HPV types (16,18,31,33,35,39,45,51,52,56,58,59,66,68) without differentiation. Performed at: =G Performed By: #### 4 [id number] #### [facility] [address] [place] [address] Dr. Sachin Coates HPV Genotype Reflex Comment Normal [facility] Comment on above: Result Comment: Crit eria not met, HPV Genotype not performed. Performed at: WB Performed By: #### 4 [id number] #### [facility] [address] [address] [address] Sachin Coates Methodology: Comment Normal [facility] Comment on above: Result Comment: This liquid based ThinPrep(R) pap test was screened with the use of an image guided system. Performed at: WB Performed By: #### 4 [id number] #### [facility] [address] [place] [address] Dr. Sachin Coates Note: Comment Normal [facility] Comment on above: Result Comment: The Pap smear is a screening test designed to aid in the detection of premalignant and malignant conditions of the uterine cervix. It is not a diagnostic procedure and should not be used as the sole means of detecting cervical cancer. Both false-positive and false-negative reports do occur. . Performed at: WB Performed By: #### 4 [id number] #### [facility] [address] [place] [address] Dr. Sachin Coates Performed by: Comment Normal [facility] Comment on above: Result Comment: Peyton Beverly, [employer] (ASCP) Performed at: WB Performed By: #### 4 [id number] #### [facility] [address] [place] [address] Dr. Sachin Coates QC reviewed by: Comment Normal [facility] Comment on above: Result Comment: Cielo Cochran, Supervisory [employer] ([employer]CP) Performed at: WB Performed By: #### 4 [id number] #### [facility] [address] [place] [address] Dr. Sachin Coates Specimen adequacy: Comment Normal [facility] Comment on above: Result Comment: Sati sfactory for evaluation. Endocervical and/or squamous metaplastic cells (endocervical component) are present. Performed at: WB Performed By: #### 4 [id number] #### [facility] [address] [address] [address] Sachin Coates COVID-19 SOFIAOrdered By: Dario To on 12-02-2021 SARS-CoV+SARS-CoV-2 (COVID-19) Ag IA.rapid Ql (Resp) Negative Negative [facility] Comment on above: This is a duplicate Zuleyma SARS Antigen (PAMELLA) result to be used for statistical tracking purpose only. No Panel InformationOrdered By: Ck To on 12-02-2021 SARS Antigen (LFIA) [facility] [facility] Chart Updateon 08-08-2020 Chart Update Chart [...] Aug 08 2020 10:18AM EST (Author) Normal [employer] INSURANCE CLAIMS REPRESENTATIVE - Procedure Visiton 0 07-10-2020 INSURANCE CLAIMS REPRESENTATIVE - Procedure Visit Chief Complaint IUI [...] Touchworks ESTRADIOLon 07-08-2020 ESTRADIOL 186 pg/mL Normal [facility] Comment on above: Result Comment: Estr adiol measurement is performed using the [employer] Access Sensitive Estradiol Immunoassay. Estradiol testing is performed using a different test methodology at [facility] than other [facility]. Direct result comparison should only be made within the same method. REF VALUES EARLY FOLLICULAR 22-115 MID FOLLICULAR 25-115 OVULATORY PEAK 32-517 MID LUTEAL 37-246 POSTMENOPAUSE <15- 25 MALE <15- 32 Performed By: #### G [facility] #### [facility] [address] [place] [address] Estradiol, Serumon 1 E2 [Mass/Vol] 186 pg/mL -Kareen an 310 IVF Work Phone: Comment on above: Estradiol measuremen t is performed using the [employer] Access Sensitive Estradiol Immunoassay. Estradiol testing is performed using a different test methodology at [facility] than other [facility]. Direct result comparison should only be made within the same method.REF VALUESEARLY FOLLICULAR 22-115MID FOLLICULAR 25-115OVULATORY PEAK 32-517MID LUTEAL 37-246POSTMENOPAUSE <15- 25MALE <15- 32 LUTEINIZING HORMONEon 2020 LUTEINIZING HORMONE 9.5 IU/L Normal [facility] Comment on above: Result Comment: Lute inizing Hormone [LH] is performed using the Shruthi J Carlos Access Immunoassay. LH testing is performed using a different test methodology at [facility] than other [facility]. Direct result comparison should only be made within the same method. REF VALUES FOLLICULAR PHASE 1.5-10.0 MID-CYCLE 13.0-72.0 LUTEAL PHASE 0.5-13.0 MENOPAUSE 15.0-65.0 PREPUBERTY 0- 3.0 CHILDREN 0- 6.0 ADULT MALE 1.0- 9.0 Performed By: #### G [facility] #### [facility] [address] [place] [address] Luteinizing Hormone, Serumon 07-08-2020 Lutropin Qn 9.5 {IU/L} UI-SDKRU-Nvmz an 310 IVF Work Phone: Comment on above: Luteinizing Hormone [LH] is performed using the [employer] Access Immunoassay. LH testing is performed using a different test methodology at [facility] than other [facility]. Direct result comparison should only be made within the same method.REF VALUESFOLLICULAR PHASE 1.5-10.0MID-CYCLE 13.0-72.0LUTEAL PHASE 0.5-13.0MENOPAUSE 15.0-65.0PREPUBERTY 0- 3.0CHILDREN 0- 6.0ADULT MALE 1.0- 9.0 TYPE + SCREENon 07-06-2020 ABO TYPE A Normal [facility] Comment on above: Performed By: #### T +S #### [facility] [address] [place] [address] RH TYPE Positive Normal [facility] Comment on above: Performed By: #### T +S #### [facility] [address] [place] [address] ESTRADIOLon 07-05-2020 ESTRADIOL 58 pg/mL Normal [facility] Comment on above: Result Comment: Estr adiol measurement is performed using the [employer] Access Sensitive Estradiol Immunoassay. Estradiol testing is performed using a different test methodology at [facility] than other [facility]. Direct result comparison should only be made within the same method. REF VALUES EARLY FOLLICULAR 22-115 MID FOLLICULAR 25-115 OVULATORY PEAK 32-517 MID LUTEAL 37-246 POSTMENOPAUSE <15- 25 MALE <15- 32 Performed By: #### G [facility] #### [facility] [address] [place] [address] Estradiol, Serumon E2 [Mass/Vol] 58 pg/mL MG-OBGYN-Ri sm an 310 IVF Work Phone: Comment on above: Estradiol measuremen t is performed using the [employer] Access Sensitive Estradiol Immunoassay. Estradiol testing is performed using a different test methodology at [facility] than other [facility]. Direct result comparison should only be made within the same method.REF VALUESEARLY FOLLICULAR 22-115MID FOLLICULAR 25-115OVULATORY PEAK 32-517MID LUTEAL 37-246POSTMENOPAUSE <15- 25MALE <15- 32 Hematologyon 07-05-2020 ABO group Nom (Bld) A MG-DINKEY ENGINE FIRER/FIREMAN-Rism an 310 IVF Work Phone: Blood group antibody screen Ql Negative OA-RCEWF-Wqyd an 310 IVF Work Phone: Rh immune globulin screen (Bld) [Interp] Positive MG-OBGYN-R ism an 310 IVF Work Phone: LUTEINIZING HORMONEon 2020 LUTEINIZING HORMONE 9.2 IU/L Normal [facility] Comment on above: Result Comment: Lute inizing Hormone [LH] is performed using the Shruthi Skipwith Access Immunoassay. LH testing is performed using a different test methodology at [facility] than other [facility]. Direct result comparison should only be made within the same method. REF VALUES FOLLICULAR PHASE 1.5-10.0 MID-CYCLE 13.0-72.0 LUTEAL PHASE 0.5-13.0 MENOPAUSE 15.0-65.0 PREPUBERTY 0- 3.0 CHILDREN 0- 6.0 ADULT MALE 1.0- 9.0 Performed By: #### L H #### [facility] [address] [place] [address] Luteinizing Hormone, Serumon 07-05-2020 Lutropin Qn 9.2 {IU/L} LY-MQNBH-Rewz an 310 IVF Work Phone: Comment on above: Luteinizing Hormone [LH] is performed using the Shruhti J Carlos Access Immunoassay. LH testing is performed using a different test methodology at [facility] than other [facility]. Direct result comparison should only be made within the same method.REF VALUESFOLLICULAR PHASE 1.5-10.0MID-CYCLE 13.0-72.0LUTEAL PHASE 0.5-13.0MENOPAUSE 15.0-65.0PREPUBERTY 0- 3.0CHILDREN 0- 6.0ADULT MALE 1.0- 9.0 INSURANCE CLAIMS REPRESENTATIVE - Office Visiton 02-0 INSURANCE CLAIMS REPRESENTATIVE - Office Visit Diagnoses/Problems Assessed Morbid [...] MD [facility] [phone] [place] [phone] [place] 1 Amended By: Bayron Mccarty; Jun [...] Bayron Mccarty MD Reproductive Endocrinology and Infertility [facility] [phone] [place] [phone] [place] Appointment Duration:. 25 minutes; greater than half of the time was spent on counseling. 1 Amended By: Bayron Mccarty; Jun 19 2020 10:16 AM ESTChief Complaint follow up History of Present Nxiyeot7306/19/2020 9:30AM JALEESA ARRIETA , 30 year is contacted for an (audio-visual, or audio only) Telehealth visit. Today's visit was provided through telemedicine conferencing: Using [employer] platform. Consent: The concept of telemedicine? has [...] is a telehealth appointment Results/Data HCG, Beta Ifvazpzgvvfs52Hjd8510 11:58AMBayron Mccarty Test NameResultFlagReference HCG, Beta Quantitative<2 [...] HCG measurement is performed using the [employer] Access Immunoassay which detects intact HCG and free beta HCG subunit. This test is not indicated for use as a tumor marker. HCG testing is performed using a different test methodology at [facility] than other [facility]. Direct result comparison should only be made within the same method. REF VALUES NON FEMALE <5 MALES <5 Progesterone, Iyzyh75Pgy2435 11:58AMBayron Mccarty Test NameResultFlagReference Progesterone, Serum10.5 ng/mL REF VALUES MALE <0.3- 1.2 FOLLICULAR PHASE <0.3- 1.4 LUTEAL PHASE 3.3-25.6 MID-LUTEAL PHASE 4.4-28.0 POSTMENOPAUSAL <0.3- 0.7 FEMALES: 1ST TRIMESTER 11.2- 90.0 2ND TRIMESTER 25.6- 89.4 3RD TRIMESTER 48.4-422.5 . Patients receiving DHEA-S supplements may show false elevation of progesterone for results near 1.0 ng/mL. Contact laboratory at [phone] if alternative testing is needed. CMV IgG and IgM Wn02Rgd9873 11:58AMBayron Mccarty Test NameResultFlagReference CMV IgG AntibodyREACTIVEASee Below Reference Range: NONREACTIVE CMV IGM [id number] 11:58Bayron Stroud Test NameResultFlagReference CMV IGM AB<30.00 [...] testing in two or more weeks. Xray Qvsdlnczokshzhaxrhd08Arg 2020 12:00AMBayron Mccarty [Mar 28, 2020 9:43AM Bayron Mccarty] Reason: Unspecified for Xray Hysterosalpingogram Test NameResultFlagReference Xray Hysterosalpingogram Please click on the link to view the study images Anti Mullerian [id number] 12:03PMBayron Mccarty Test NameResultFlagReference Anti Mullerian Hormone6.36 ng/mL For assays employing antibodies, the possibility exists for interference by heterophile antibodies in the samples.1 1.Oswald Crews. Interferences in Immunoassays - still a threat. Clin. Chem. 2000; 46: 8617-3890. This test was developed and its performance characteristics determined by [employer]. It has not been cleared or approved by the Food and Drug Administration. Reference Range: Females 26 - 30y: 1.03 - 11.10 Median 4.20 AMH concentrations of >= 1.06 ng/mL is correlated with a better response to ovarian stimulation, produced more retrievable oocytes and higher odds of live according to Gleicher et al. Fertility and Sterility. 2010: 94:1294-2391. The current AMH test method correlates with [...] exclude an AMH-secreting ovarian tumor. Rubella IgG Xdwhncts05Sru7034 12:03PMBayron Mccarty Test NameResultFlagReference Rubella IgG AntibodyPOSITIVE [...] TSH WITH REFLEX TO FREE T4 IF [id number] 12:03PMBibiana Bayron Test NameResultFlagReference Thyroid Stimulating Hormone, Serum2.17 mIU/LSee Below Reference Range: 0.44 - 3.98 TSH testing is performed using different testing methodology at [facility] than at other [facility]. Direct result comparisons should only be made within the same method. Varicella Zoster IgG Rotmvtzy36Avm7557 12:03PMYuniorcollin Bayron Test NameResultFlagReference Varicella Zoster IgG [...] altered results in serological assays. Vitamin D 25-Zittezp54Yxx6319 12:03PMFinBayron polanco Test NameResultFlagReference Vitamin D 25-Hydroxy, Level17 ng/mLA . DEFICIENCY: < 20 NG/ML INSUFFICIENCY: 20-29 NG/ML SUFFICIENCY: 30-100 NG/ML THIS ASSAY ACCURATELY QUANTIFIES THE SUM OF VITAMIN D3, 25-HYDROXY AND VIT D2,25-HYDROXY. { 17-Hydroxyprogesterone, Vchlf68Ocz2243 12:03PMYuniorBayron polanco Test NameResultFlagReference 17-Hydroxyprogesterone, Serum33 ng/dL [...] Endocrinol Metab. 1991;73:674-686; J Clin Endocrinol Metab. 1989;69;9037-6541; J Clin Endocrinol Metab. 1994;78:226-270. Pediatr Res 1988;23:525-529. MedLinePlus (accessed 10/25/13). This test was developed and its analytical performance characteristics have been determined by [facility] It has not been cleared or approved by the U.S. Food and Drug Administration. This assay has been validated pursuant to the CLIA regulations and is used for clinical purposes. DHEA Sulfate, Fykqp73Snr3597 12:03PMYuniorBayron polanco Test NameResultFlagReference DHEA Sulfate, Lvtzo911 ug/dL65 - 395 MATURITY-BASED REFERENCE RANGES: PUBERTAL [...] laboratory for further information. Testosterone Free + Lduds79Hmn1309 12:03PMBayron Mccarty Test NameResultFlagReference Testosterone, Total63 ng/dLH2-45 For additional information, please refer to http://education.[employer]/faq/ TotalTestosteroneLCMSMSF AQ165 (This link is being provided for informational/ educational purposes only.) This test was developed and its analytical performance characteristics have been determined by [employer] [place]. It has not been cleared or approved by the U.S. Food and Drug Administration. This assay has been validated pursuant to the CLIA regulations and is used for clinical purposes. Testosterone, Free Serum8.8 pg/mLH0.1-6.4 This test was developed and its analytical performance characteristics have been determined by [facility] It has not been cleared or approved by the U.S. Food and Drug Administration. This assay has been validated pursuant to the CLIA regulations and is used for clinical purposes. Hemoglobin [id number] 12:03PMBayron Mccarty Test NameResultFlagReference Hemoglobin A1C, Level5.5 % Diagnosis of Diabetes-Adults Non-Diabetic: < or = 5.6% Increased risk for developing diabetes: 5.7-6.4% Diagnostic of diabetes: > or = 6.5% . Monitoring of Diabetes Age (y) Therapeutic Goal (%) Adults: >18 <7.0 Pediatrics: 13-18 <7.5 7-12 <8.0 0- 6 7.5-8.5 Citizen [place] Diabetes Association. Diabetes Care 33(S1), May 2009. Estimated Average Axnyazz978 MG/DL GC + Chlamydia By Amplified Endidphxn77Uiu4912 12:03PMBayron Mccarty Test NameResultFlagReference N.GONORRHEA,AMPLIFIEDNEG ATIVENegative SOURCE: Urine Chlamydia Trach, AmplifiedNEGATIVENegativ e Hepatitis B Surface Ihjqrur75Zgf1556 12:03PMBayron Mccarty Test NameResultFlagReference Hep.B Surface AgNONREACTIVESee Below Reference Range: NONREACTIVE Biotin interference may cause falsely decreased results. Patients taking a Biotin dose of up to 5 mg/day should refrain from taking Biotin for 24 hours before sample collection. Providers may contact their local laboratory for further information. Hepatitis C Antibody Szdu27Hid2599 12:03PMBayron Mccarty Test NameResultFlagReference Hepatitis C-AntibodyNONREACTIVESee Below Reference Range: NONREACTIVE Results from patients taking biotin supplements or receiving high-dose biotin therapy should be interpreted with caution due to possible interference with this test. Providers may contact their local laboratory for further information. HIV 1/2 ANTIGEN/ANTIBODY SCREEN WITH REFLEX TO [id number] 12:03PMBayron Mccarty Test NameResultFlagReference HIV 1/2 AG/AB SCREENNONREACTIVESee Below Reference Range: NONREACTIVE HIV Ag/Ab screen is performed using the Siemens StylrllShoutEm HIV Ag/Ab Combo assay which detects the presence of HIV p24 antigen as well as antibodies to HIV-1 (Group M and O) and HIV-2. SYPHILIS SCREENING WITH [id number] 12:03PMBayron Mccarty Test NameResultFlagReference SYPHILIS TOTAL ANTIBODYNONREACTIVESee [...] ABon 04-20-2020 CMV IGM AB <30.00 Normal [facility] Comment on above: Result Comment: REFE [...] weeks. Performed By: #### C MVM2 #### [facility] [address] [place] [address] CMV IGG AND IGM ABon 020 CMV IGG AB REACTIVE Abnormal NONREACTIVE [facility] Comment on above: Performed By: #### C MV2 #### [facility] [address] [place] [address] PROGESTERONEon 04-16-2020 PROGESTERONE 10.5 ng/mL Normal [facility] Comment on above: Result Comment: REF VALUES MALE <0.3- 1.2 FOLLICULAR PHASE <0.3- 1.4 LUTEAL PHASE 3.3-25.6 MID-LUTEAL PHASE 4.4-28.0 POSTMENOPAUSAL <0.3- 0.7 FEMALES: 1ST TRIMESTER 11.2- 90.0 2ND TRIMESTER 25.6- 89.4 3RD TRIMESTER 48.4-422.5 . Patients receiving DHEA-S supplements may show false elevation of progesterone for results near 1.0 ng/mL. Contact laboratory at [phone] if alternative testing is needed. Performed By: #### P BOBBY #### [facility] [address] [place] [address] HCG,BETA-QUANTITATIVEon HCG,BETA-QUANTITATIVE <2 Normal [facility] Comment on above: Result Comment: Low- [...] HCG measurement is performed using the Shruthi Skipwith Access Immunoassay which detects intact HCG and free beta HCG subunit. This test is not indicated for use as a tumor marker. HCG testing is performed using a different test methodology at [facility] than other [facility]. Direct result comparison should only be made within the same method. REF VALUES NON FEMALE <5 MALES <5 Performed By: #### H CGQU #### [place] [address] [id number] INSURANCE CLAIMS REPRESENTATIVE - Office Visiton INSURANCE CLAIMS REPRESENTATIVE - Office Visit Chief Complaint An [...] test results. Roby JEWELL. History of Present Vquvfrd8304/14/2020 9:30AM JALEESA ARRIETA , 30 year is contacted for an (audio-visual, or audio only) Telehealth visit. Today's visit was provided through telemedicine conferencing: Using [employer] platform. Consent: The concept of telemedicine? has [...] surgically absent. Seen by Dr. Maradiaga with [facility], please see his recommendations. Patient was found [...] 25 MCG (1000 UT) Oral Tablet; Therapy: 36Kso4584 to Recorded Dispense: 0 Days ; #: Sufficient Tablet; Refill: 0; KEVIN = N; Record; Last Updated By: Breezy Jasso; 2020 1:15:24 PM Vitals Vital Signs Recorded: 32Dlo4858 09:08AM Height5 ft 6 in Drkaqa870 lb BMI Octuplnupv38.81 BSA Calculated2.34 UUO01Lta7111 Gravida1 Para0 Pain Scale0 Physical Exam This is a telehealth appointment Results/Data Anti Mullerian Pdzazvn31Wqa1970 12:03PMBayron Mccarty Test NameResultFlagReference Anti Mullerian Hormone6.36 ng/mL For assays employing antibodies, the possibility exists for interference by heterophile antibodies in the samples.1 1.Oswald Crews. Interferences in Immunoassays - still a threat. Clin. Chem. 2000; 46: 7731-4468. This test was developed and its performance characteristics determined by [employer]. It has not been cleared or approved by the Food and Drug Administration. Reference Range: Females 26 - 30y: 1.03 - 11.10 Median 4.20 AMH concentrations of >= 1.06 ng/mL is correlated with a better response to ovarian stimulation, produced more retrievable oocytes and higher odds of live according to Carey et al. Fertility and Sterility. 2010: 94:9183-4723. The current AMH test method correlates with [...] exclude an AMH-secreting ovarian tumor. Anti Mullerian Apilcso04Kaq5396 12:03PMBayron Mccarty Test NameResultFlagReference Anti Mullerian Hormone6.36 ng/mL For assays employing antibodies, the possibility exists for interference by heterophile antibodies in the samples.1 1.Oswald Brunner Interferences in Immunoassays - still a threat. Clin. Chem. 2000; 46: 5906-3352. This test was developed and its performance characteristics determined by [employer]. It has not been cleared or approved by the Food and Drug Administration. Reference Range: Females 26 - 30y: 1.03 - 11.10 Median 4.20 AMH concentrations of >= 1.06 ng/mL is correlated with a better response to ovarian stimulation, produced more retrievable oocytes and higher odds of live according to Michaeler et al. Fertility and Sterility. 2010: 94:8079-1058. The current AMH test method correlates with [...] exclude an AMH-secreting ovarian tumor. Rubella IgG Wcecpdgl17Lya7208 12:03PMBayron Mccarty Test NameResultFlagReference Rubella IgG AntibodyPOSITIVE [...] TSH WITH REFLEX TO FREE T4 IF [id number] 12:03PMBayron Mccarty Test NameResultFlagReference Thyroid Stimulating Hormone, Serum2.17 mIU/LSee Below Reference Range: 0.44 - 3.98 TSH testing is performed using different testing methodology at [facility] than at other [facility]. Direct result comparisons should only be made within the same method. Varicella Zoster IgG Wdnyvann17Ynv8258 12:03PMBayron Mccarty Test NameResultFlagReference Varicella Zoster IgG [...] altered results in serological assays. Vitamin D 25-Popbqxa94Deb4659 12:03PMBayron Mccarty Test NameResultFlagReference Vitamin D 25-Hydroxy, Level17 ng/mLA . DEFICIENCY: < 20 NG/ML INSUFFICIENCY: 20-29 NG/ML SUFFICIENCY: 30-100 NG/ML THIS ASSAY ACCURATELY QUANTIFIES THE SUM OF VITAMIN D3, 25-HYDROXY AND VIT D2,25-HYDROXY. { 17-Hydroxyprogesterone, Tsizn42Pux3432 12:03Bayron Silva Test NameResultFlagReference 17-Hydroxyprogesterone, Serum33 ng/dL [...] Endocrinol Metab. 1991;73:674-686; J Clin Endocrinol Metab. 1989;69;7839-4707; J Clin Endocrinol Metab. 1994;78:226-270. Pediatr Res 1988;23:525-529. MedLinePlus (accessed 10/25/13). This test was developed and its analytical performance characteristics have been determined by [employer] [place]. It has not been cleared or approved by the U.S. Food and Drug Administration. This assay has been validated pursuant to the CLIA regulations and is used for clinical purposes. DHEA Sulfate, Ngxzc46Vgk2023 12:03PMBayron Mccarty Test NameResultFlagReference DHEA Sulfate, Nhalj715 ug/dL65 - 395 MATURITY-BASED REFERENCE RANGES: PUBERTAL [...] laboratory for further information. Testosterone Free + Pgtxg87Ast9427 12:03PMBayron Mccarty Test NameResultFlagReference Testosterone, Total63 ng/dLH2-45 For additional information, please refer to http://education.[employer]/faq/ TotalTestosteroneLCMSMSF AQ165 (This link is being provided for informational/ educational purposes only.) This test was developed and its analytical performance characteristics have been determined by [employer] [place]. It has not been cleared or approved by the U.S. Food and Drug Administration. This assay has been validated pursuant to the CLIA regulations and is used for clinical purposes. Testosterone, Free Serum8.8 pg/mLH0.1-6.4 This test was developed and its analytical performance characteristics have been determined by [facility]. It has not been cleared or approved by the U.S. Food and Drug Administration. This assay has been validated pursuant to the CLIA regulations and is used for clinical purposes. Hemoglobin [id number] 12:03PMBayron Mccarty Test NameResultFlagReference Hemoglobin A1C, Level5.5 % Diagnosis of Diabetes-Adults Non-Diabetic: < or = 5.6% Increased risk for developing diabetes: 5.7-6.4% Diagnostic of diabetes: > or = 6.5% . Monitoring of Diabetes Age (y) Therapeutic Goal (%) Adults: >18 <7.0 Pediatrics: 13-18 <7.5 7-12 <8.0 0- 6 7.5-8.5 Citizen [place] Diabetes Association. Diabetes Care 33(S1), May 2009. Estimated Average Npzpnbh652 MG/DL GC + Chlamydia By Amplified Jakjkymqs07Pmu1849 12:03PMBayron Mccarty Test NameResultFlagReference N.GONORRHEA,AMPLIFIEDNEG ATIVENegative SOURCE: Urine Chlamydia Trach, AmplifiedNEGATIVENegativ e Hepatitis B Surface Xfbfgzl93Ctf8226 12:03PMBayron Mccarty NameYolandaultReference Hep.B Surface AgNONREACTIVESee Below Reference Range: NONREACTIVE Biotin interference may cause falsely decreased results. Patients taking a Biotin dose of up to 5 mg/day should refrain from taking Biotin for 24 hours before sample collection. Providers may contact their local laboratory for further information. Hepatitis C Antibody Qffj97Mwq0648 12:03PMBayron Mccarty NameResultRefereoneliae Hepatitis C-AntibodyNONREACTIVESee Below Reference Range: NONREACTIVE Results from patients taking biotin supplements or receiving high-dose biotin therapy should be interpreted with caution due to possible interference with this test. Providers may contact their local laboratory for further information. HIV 1/2 ANTIGEN/ANTIBODY SCREEN WITH REFLEX TO [id number] 12:03PMBayron Mccarty NameResultFlagReference HIV 1/2 AG/AB SCREENNONREACTIVESee Below Reference Range: NONREACTIVE HIV Ag/Ab screen is performed using the Siemens StylrllShoutEm HIV Ag/Ab Combo assay which detects the presence of HIV p24 antigen as well as antibodies to HIV-1 (Group M and O) and HIV-2. SYPHILIS SCREENING WITH [id number] 12:03PMBibiana Bayron Test NameResultFlagReference SYPHILIS TOTAL ANTIBODYNONREACTIVESee Below SOURCE: Reference Range: NONREACTIVE No significant level of Treponema pallidum antibody detected. Repeat testing in 2 to 4 weeks may be considered if early infection or incubating syphilis infection is suspected. Diagnoses/Problems Irregular menses (626.4) (N92.6) Morbid obesity (278.01) (E66.01) Orders HCG, Beta Quantitative; Status:Active; Requested for:48Yki6385; Perform:Lab Services - Lab To Draw (Blood Test); Due:13Jul2020;Ordered; For:Irregular menses; Ordered By:Bayron Mccarty; Progesterone, Serum; Status:Active; Requested for:02Mfe0905; Perform:Lab Services - Lab To Draw (Blood Test); Due:91Ipg4847;Ordered; For:Irregular menses; Ordered By:Bayron Mccarty; Provider Impressions [...] MD [facility] [phone] [place] [phone] [place] Appointment Duration:. 25 minutes; greater than [...] MD [facility] [phone] [place] [phone] [place] 1 Amended By: Bayron Mccarty; Apr 14 2020 4:50 PM ESTSignatures Electronically signed by : Bayron Mccarty MD; Apr 14 2020 4:51PM EST (Author) Normal [facility] INSURANCE CLAIMS REPRESENTATIVE - Procedure Visiton 1 05-28-2019 INSURANCE CLAIMS REPRESENTATIVE - Procedure Visit Chief Complaint pt [...] 1 CAPSULE EVERY 12 HOURS DAILY; Therapy: [id number] to (Evaluate:43Dwv7213) Requested for: 62Jzj6272; Last Rx:[id number] Ordered Rx By: Bayron Mccarty; Dispense: 5 Days ; #:10 Capsule; Refill: 0;For: Fertility testing; KEVIN = N; Verified Transmission to [place] [address]; Msg to Pharmacy: start medication the night before her procedure; Last Updated By: Elham [employer]; 01/24/2020 12:08:27 PM Vitamin D 25 MCG (1000 UT) Oral Tablet; Therapy: 79Gfz3860 to Recorded Dispense: 0 Days ; #: [...] Mar 28 2020 4:10PM EST (Author) Normal [facility] INSURANCE CLAIMS REPRESENTATIVE - Office Visiton 11-0 INSURANCE CLAIMS REPRESENTATIVE - Office Visit Chief Complaint The [...] is considering single parent procreation. 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 Ng in [place]. Active Problems Female infertility (628.9) (N97.9) Fertility [...] 1 CAPSULE EVERY 12 HOURS DAILY; Therapy: 49Syv6755 to (Evaluate:28Png6493) Requested for: 05Yiz6524; Last Rx:[id number] Ordered Rx By: Bayron Mccarty; Dispense: 5 Days ; #:10 Capsule; Refill: 0; For: Fertility testing; KEVIN = N; Verified Transmission to [place] [address]; Msg to Pharmacy: start medication the night before her procedure; Last Updated By: [employer]; 01/24/2020 12:08:27 PM Vitamin D 25 MCG (1000 UT) Oral Tablet; Therapy: 51Fct4896 to Recorded Dispense: 0 Days ; #: Sufficient Tablet; Refill: 0; KEVIN = N; Record; Last Updated By: Breezy Jasso; 2020 1:15:24 PM Vitals Vital Signs Recorded: 13Mar2020 01:08PM Heart Rate96 Ondbcmco888 Vmcwwhjyi92 Height5 ft 6 in Vjpfel291 lb BMI Rpacmqunxr25.91 BSA Calculated2.39 Tobacco Useb) No Fall Screeninga) No falls within the last year [id number] Gravida1 Para0 Pain Scale0 Diagnoses/Problems Morbid obesity [...] consultation of which greater than 50% was wtmn-bx-ebbc counseling. Weight loss prior to conception is [...] MD; Jun 12 2020 4:50PM EST [facility] ANTI MULLERIAN HORMONEon ANTI MULLERIAN HORMONE 6.36 ng/mL Normal [facility] Comment on above: Result Comment: For assays employing antibodies, the possibility exists for interference by heterophile antibodies in the samples.1 1.Oswald Crews. Interferences in Immunoassays - still a threat. Clin. Chem. 2000; 46: 9366-9762. This test was developed and its performance characteristics determined by [employer]. It has not been cleared or approved by the Food and Drug Administration. Reference Range: Females 26 - 30y: 1.03 - 11.10 Median 4.20 AMH concentrations of >= 1.06 ng/mL is correlated with a better response to ovarian stimulation, produced more retrievable oocytes and higher odds of live according to Carey et al. Fertility and Sterility. 2010: 94:6514-4476. The current AMH test method correlates with [...] ovarian tumor. Performed By: #### A #### [facility] [address] [place] [address] [id number] 17-HYDROXYPROGESTERONEon 17-HYDROXYPROGESTERON E 33 ng/dL Normal [facility] Comment on above: Result Comment: Unable [...] Endocrinol Metab. 1991;73:674-686; J Clin Endocrinol Metab. 1989;69;9627-7332; J Clin Endocrinol Metab. 1994;78:226-270. Pediatr Res 1988;23:525-529. MedLinePlus (accessed 10/25/13). This test was developed and its analytical performance characteristics have been determined by [employer] [place], [place]. It has not been cleared or approved by the U.S. Food and Drug Administration. This assay has been validated pursuant to the CLIA regulations and is used for clinical purposes. Performed By: #### 1 7OHP #### [facility] [address] [place] [address] TESTOST,FREE AND TOTALon TESTOSTERONE TOT.LC/MS/MS 63 ng/dL High 2-45 [facility] Comment on above: Result Comment: For additional information, please refer to http://education.[employer]/faq/ NcnouNfehbgozwaltCDIDRPBID567 (This link is being provided for informational/ educational purposes only.) This test was developed and its analytical performance characteristics have been determined by [employer] [place], [place]. It has not been cleared or approved by the U.S. Food and Drug Administration. This assay has been validated pursuant to the CLIA regulations and is used for clinical purposes. Performed By: #### G [facility] #### [facility] [address] [place] [address] TESTOSTERONE,FREE 8.8 pg/mL High 0.1-6.4 [facility] Comment on above: Result Comment: This test was developed and its analytical performance characteristics have been determined by [employer] [place], [place]. It has not been cleared or approved by the U.S. Food and Drug Administration. This assay has been validated pursuant to the CLIA regulations and is used for clinical purposes. Performed By: #### G [facility] #### [facility] [address] [place] [address] DHEA SULFATEon 01-25-2020 DHEA SULFATE 214 ug/dL Normal 65 - 395 [facility] Comment on above: Result Comment: JOANNA MALDONADO-BASED [...] for further information. Performed By: #### G [facility] #### [facility] [address] [place] [address] GC + CHLAMYDIA BY AMPLIFIED DETECTIONon 01-25-2020 CHLAMYDIA TRACH.,AMPLIFIED Negative Normal Negative [facility] Comment on above: Performed By: #### G CCHA #### [facility] [address] [place] [address] N.GONORRHEA,AMPLIFIED Negative Normal Negative [facility] Comment on above: Performed By: #### G CCHA #### [facility] [address] [place] [address] HEPATITIS B SURFACE AGon HEP.B SURFACE AG NONREACTIVE Normal NONREACTIVE [facility] Comment on above: Result Comment: Biot in interference may cause falsely decreased results. Patients taking a Biotin dose of up to 5 mg/day should refrain from taking Biotin for 24 hours before sample collection. Providers may contact their local laboratory for further information. Performed By: #### G [facility] #### [facility] [address] [place], [place] HEPATITIS C ABon 01-25-2020 HEPATITIS C AB NONREACTIVE Normal NONREACTIVE [facility] Comment on above: Result Comment: Resu lts from patients taking biotin supplements or receiving high-dose biotin therapy should be interpreted with caution due to possible interference with this test. Providers may contact their local laboratory for further information. Performed By: #### H [facility] #### [facility] [address] [place], [place] HIV ANTIGEN/ANTIBODY SCREENo n 01-25-2020 HIV AG/AB SCREEN NONREACTIVE Normal NONREACTIVE [facility] Comment on above: Result Comment: HIV Ag/Ab screen is performed using the Siemens [employer] HIV Ag/Ab Combo assay which detects the presence of HIV p24 antigen as well as antibodies to HIV-1 (Group M and O) and HIV-2. Performed By: #### G CCHA #### [facility] [address] [place], [place] RUBELLA IGG ABon 01-25-2020 RUBELLA IGG AB Positive Normal [facility] Comment on above: Result Comment: [...] assays. Performed By: #### R UBIG #### [facility] [address] [place] [id number] SYPHILIS SCREENING WITH REFL EXon 01-25-2020 SYPHILIS TOTAL AB NONREACTIVE Normal NONREACTIVE [facility] Comment on above: Result Comment: No s ignificant level of Treponema pallidum antibody detected. Repeat testing in 2 to 4 weeks may be considered if early infection or incubating syphilis infection is suspected. Performed By: #### S YPHR #### [facility] [address] [place] [address] TSH WITH REFLEX TO FREE T4 I F ABNORMALon 01-25-2020 TSH Qn 2.17 m[IU]/L Normal 0.44 - 3.98 [facility] Comment on above: Result Comment: TSH testing is performed using different testing methodology at [facility] than at other [facility]. Direct result comparisons should only be made within the same method. Performed By: #### G CCHA #### [facility] [address] [place] [address] VARICELLA ZOSTER IGG ABon VARICELLA ZOSTER IGG AB Negative Normal NEGATIVE [facility] Comment on above: Result Comment: INTE [...] assays. Performed By: #### V ARZG #### [facility] [address] [place] [address] VITAMIN D, 25-HYDROXYon 01-10 VITAMIN D, 25-HYDROXY 17 ng/mL Abnormal [facility] Comment on above: Result Comment: . DEFICIENCY: < 20 NG/ML INSUFFICIENCY: 20-29 NG/ML SUFFICIENCY: 30-100 NG/ML THIS ASSAY ACCURATELY QUANTIFIES THE SUM OF VITAMIN D3, 25-HYDROXY AND VIT D2,25-HYDROXY. { Performed By: #### G [facility] #### [facility] [address] [place] [address] GC + CHLAMYDIA BY AMPLIFIED DETECTIONon 01-24-2020 Lab Specimen Source Urine Normal [facility] Comment on above: Performed By: #### G [facility] #### [facility] [address] [place] [address] HEMOGLOBIN A1Con 01-24-2020 HbA1c (Bld) [Mass fraction] 5.5 % Normal [facility] Comment on above: Result Comment: Diag nosis of Diabetes-Adults Non-Diabetic: < or = 5.6% Increased risk for developing diabetes: 5.7-6.4% Diagnostic of diabetes: > or = 6.5% . Monitoring of Diabetes Age (y) Therapeutic Goal (%) Adults: >18 <7.0 Pediatrics: 13-18 <7.5 7-12 <8.0 0- 6 7.5-8.5 Citizen Of [place] Diabetes Association. Diabetes Care 33(S1), May 2009. Performed By: #### H BA1E #### [facility] [address] [place] [address] HbA1c (Bld) [Mass fraction] 111 MG/DL Normal [facility] Comment on above: Performed By: #### H BA1E #### [facility] [address] [place] [address] INSURANCE CLAIMS REPRESENTATIVE - Office Visiton 01-10 INSURANCE CLAIMS REPRESENTATIVE - Office Visit Chief Complaint 29 [...] was treated with laparoscopic left salpingectomy in [facility]. 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 pain DIETARY AIDE HISTORY: STDs: Yes, remote history of gonorrhea [...] PM Vitals Vital Signs Recorded: 24Jan2020 11:13AM Hhagtwaphoo87.7 F Heart Txnf281 Gruisnhz809 Bzsnnggdc56 Height5 ft 6 in Qtajhq395 lb BMI Dvirdiixvh83.13 BSA Calculated2.35 Tobacco Useb) No Fall Screeninga) No falls within the last year [id number] Gravida1 Para0 Pain Scale0 Diagnoses/Problems Female infertility (628.9) (N97.9) Fertility testing (V26.21) (Z31.41) Morbid obesity (278.01) (E66.01) Irregular menses (626.4) (N92.6) Screening for STD (sexually transmitted disease) (V74.5) (Z11.3) *Orders Anti Mullerian Hormone; Status:Active; Requested for:24Jan2020; Perform:Lab Services - Lab To Draw (Non-Blood Test); Due:11Ios9895;Ordered; For:Female infertility, Fertility testing, Irregular menses, Morbid obesity; Ordered By:Bayron Mccarty; Start: Doxycycline Monohydrate 100 MG Oral Capsule; TAKE 1 CAPSULE EVERY 12 HOURS DAILY Rx By: Bayron Mccarty; Dispense: 5 Days ; #:10 Capsule; Refill: 0; For: Fertility testing; KEVIN = N; Verified Transmission to [place] [address]; Msg to Pharmacy: start medication the night before her procedure; Last Updated By: Cindi Lizarraga; 01/24/2020 12:08:27 PM Maternal Medicine Referral Evaluation and Treatment Evaluate AND Treat Status: Hold For - Scheduling Requested for: 24Jan2020 Ordered; For: Morbid obesity; Ordered By: Bayron Mccarty Performed: Due: 23Lkm5565 17-Hydroxyprogesterone, Serum; Status:Active; Requested for:58Lol3778; Perform:Lab Services - Lab To Draw (Blood Test); Due:27Xpw1462;Ordered; For:Screening for STD (sexually transmitted disease); Ordered By:Bayron Mccarty; DHEA Sulfate, Serum; Status:Active; Requested for:11Tzs9345; Perform:Lab Services - Lab To Draw (Blood Test); Due:17Xgw5766;Ordered; For:Screening for STD (sexually transmitted disease); Ordered By:Bayron Mccarty; Hemoglobin A1C; Status:Active; Requested for:37Ztj8388; Perform:Lab Services - Lab To Draw (Blood Test); Due:33Zta9503;Ordered; For:Screening for STD (sexually transmitted disease); Ordered By:Bayron Mccarty; Rubella IgG Antibody; Status:Active; Requested for:97Zrl9815; Perform:Lab Services - Lab To Draw (Blood Test); Due:77Gpj8189;Ordered; For:Screening for STD (sexually transmitted disease); Ordered By:Bayron Mccarty; Testosterone Free + Total; Status:Active; Requested for:50Pds7857; Perform:Lab Services - Lab To Draw (Blood Test); Due:52Nkv8630;Ordered; For:Screening for STD (sexually transmitted disease); Ordered By:Bayron Mccarty; TSH WITH REFLEX TO FREE T4 IF ABNORMAL; Status:Active; Requested for:24Jan2020; Perform:Lab Services - Lab To Draw (Blood Test); Due:29Dvy0291;Ordered; For:Screening for STD (sexually transmitted disease); Ordered By:Bayron Mccarty; Ultrasound Pelvis Transvaginal; Status:Hold For - Scheduling; Requested for:24Jan2020; Perform:[facility] Radiology Services Imaging; Order Comments:will call with menses to schedule; Due:81Jfs7663;Ordered; For:Screening for STD (sexually transmitted disease); Ordered By:Bayron Mccarty; Radiologist to Determine Optimal Study : Y What are the patient's signs and symptoms? : fert testing Varicella Zoster IgG Antibody; Status:Active; Requested for:68Syf3008; Perform:Lab Services - Lab To Draw (Blood Test); Due:29Mrl2642;Ordered; For:Screening for STD (sexually transmitted disease); Ordered By:Bayron Mccarty; Vitamin D 25-Hydroxy; Status:Active; Requested for:02Kjd5747; Perform:Lab Services - Lab To Draw (Blood Test); Due:28Ggm9158;Ordered; For:Screening for STD (sexually transmitted disease); Ordered By:Bayron Mccarty; Xray Hysterosalpingogram; Status:Hold For - Scheduling; Requested for:61Sox4550; Perform:[facility] Radiology Services Imaging; Order Comments:will call with menses to schedule. schedule between CD5-12. start doxycycline night prior to procedure; Due:53Nrf7647;Ordered; For:Screening for STD (sexually transmitted disease); Ordered By:Bayron Mccarty; Radiologist to Determine Optimal Study : Y What are the patient's signs and symptoms? 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 [address] Performed By: #### Jovany ARZG #### [facility] [address] [place] [address] Performed By: #### R UBIG #### [facility] [address] [place] [address] Vital Signs Date Time Vital Sign Value Performing Clinician Facility 04-22-2024 09:51-0500 Body mass index (BMI) [Ratio] 49.45 kg/m2 Veeqo Work Phone: [facility] 04-22-2024 09:51-0500 Body weight 138.98 kg Tacho Shon DO Work Phone: [facility] 04-22-2024 09:51-0500 Diastolic blood pressure 80 mm[Hg] Tacho Shon DO Work Phone: [facility] 04-22-2024 09:51-0500 Systolic blood pressure 130 mm[Hg] Tacho Shon DO Work Phone: [facility] 04-06-2024 14:10-0500 Body mass index (BMI) [Ratio] 48.58 kg/m2 Mena Moscow PA Work Phone: [facility] 04-06-2024 14:10-0500 Body weight 136.53 kg Mena Moscow PA Work Phone: [facility] 04-06-2024 14:10-0500 Diastolic blood pressure 80 mm[Hg] Mena Marissa PA Work Phone: [facility] 04-06-2024 14:10-0500 Systolic blood pressure 128 mm[Hg] Mena Moscow PA Work Phone: [facility] 03-22-2024 14:14-0500 Body mass index (BMI) [Ratio] 48.92 kg/m2 Tacho Shon DO Work Phone: [facility] 03-22-2024 14:14-0500 Body weight 137.49 kg Tacho Shon DO Work Phone: [facility] 03-22-2024 14:14-0500 Diastolic blood pressure 84 mm[Hg] Tacho Shon DO Work Phone: [facility] 03-22-2024 14:14-0500 Systolic blood pressure 126 mm[Hg] Tacho Shon DO Work Phone: [facility] 03-05-2024 23:11-0400 Diastolic blood pressure 78 mm[Hg] [facility] Work Phone: [facility] 03-05-2024 23:11-0400 Heart rate 90 /min Services [facility] Work Phone: [facility] 03-05-2024 23:11-0400 Respiratory rate 18 /min [facility] Work Phone: [facility] 03-05-2024 23:11-0400 SaO2% (BldA) [Mass fraction] 96 % [facility] Work Phone: [facility] 03-05-2024 23:11-0400 Systolic blood pressure 136 mm[Hg] [facility] Work Phone: [facility] 03-05-2024 19:59-0400 Body temperature 98.1 [degF] [facility] Work Phone: [facility] 03-05-2024 19:58-0400 Body height 167.64 cm [facility] Work Phone: [facility] 03-05-2024 19:58-0400 Body weight 136.55 kg [facility] Work Phone: [facility] 02-26-2024 19:50-0400 Body height 167.64 cm [facility] Work Phone: [facility] 02-26-2024 19:50-0400 Body temperature 97.8 [degF] [facility] Work Phone: [facility] 02-26-2024 19:50-0400 Body weight 136.98 kg [facility] Work Phone: [facility] 02-26-2024 19:50-0400 Diastolic blood pressure 91 mm[Hg] [facility] Work Phone: [facility] 02-26-2024 19:50-0400 Heart rate 103 /min [facility] Work Phone: [facility] 02-26-2024 19:50-0400 Respiratory rate 16 /min [facility] Work Phone: [facility] 02-26-2024 19:50-0400 SaO2% (BldA) [Mass fraction] 96 % [facility] Work Phone: [facility] 02-26-2024 19:50-0400 Systolic blood pressure 144 mm[Hg] [facility] Work Phone: [facility] 02-23-2024 14:01-0400 Body mass index (BMI) [Ratio] 48.76 kg/m2 Mena Ann PA Work Phone: [facility] 02-23-2024 14:01-0400 Body weight 137.04 kg Mena Ann PA Work Phone: [facility] 02-23-2024 14:01-0400 Diastolic blood pressure 82 mm[Hg] Mena Ann PA Work Phone: [facility] 02-23-2024 14:01-0400 Systolic blood pressure 128 mm[Hg] Mena Ann PA Work Phone: [facility] 10-06-2023 17:42-0400 Body height 167.64 cm [facility] Work Phone: [facility] 10-06-2023 17:42-0400 Body temperature 98.3 [degF] [facility] Work Phone: [facility] 10-06-2023 17:42-0400 Body weight 134 kg [facility] Work Phone: [facility] 10-06-2023 17:42-0400 Diastolic blood pressure 94 mm[Hg] [facility] Work Phone: [facility] 10-06-2023 17:42-0400 Heart rate 98 /min [facility] Work Phone: [facility] 10-06-2023 17:42-0400 Respiratory rate 18 /min [facility] Work Phone: [facility] 10-06-2023 17:42-0400 SaO2% (BldA) [Mass fraction] 100 % [facility] Work Phone: [facility] 10-06-2023 17:42-0400 Systolic blood pressure 142 mm[Hg] [facility] Work Phone: [facility] 09-17-2023 14:22-0400 Body height 167.6 cm Anna Rodríguezmakenzie BAÑUELOS [facility] 09-17-2023 14:22-0400 Body mass index (BMI) [Ratio] 47.61 kg/m2 Anna Rodríguezmakenzie BAÑUELOS [facility] 09-17-2023 14:22-0400 Body weight 133.81 kg Annaromi Rodríguezmakenzie BAÑUELOS [facility] 08-20-2023 13:05-0400 Body height 167.6 cm Tonya Senior [employer]PUT[employer]ER[employer].ELECTRONIC ENGINEERING DRAFTSPERSON Work Phone: [facility] 08-20-2023 13:05-0400 Body weight 133.81 kg Tonya Parrish [employer]ROL DEPUT[employer] SHERIFF.ELECTRONIC ENGINEERING DRAFTSPERSON Work Phone: [facility] 08-07-2023 15:23-0400 Body height 168.91 cm Services [facility] Work Phone: [facility] 08-07-2023 15:23-0400 Body mass index (BMI) [Ratio] 46.9 kg/m2 [facility] Work Phone: [facility] 08-07-2023 15:23-0400 Body weight 133.89 kg [facility] [employer] Work Phone: [facility] 08-07-2023 15:23-0400 Diastolic blood pressure 83 mm[Hg] [facility] Work Phone: [facility] 08-07-2023 15:23-0400 Heart rate 101 /min [facility] [employer] Work Phone: [facility] 08-07-2023 15:23-0400 Respiratory rate 18 /min [facility] [employer] Work Phone: [facility] 08-07-2023 15:23-0400 SaO2% (BldA) [Mass fraction] 98 % [facility] Work Phone: [facility] 08-07-2023 15:23-0400 Systolic blood pressure 120 mm[Hg] [facility] Work Phone: [facility] 06-13-2023 11:00-0500 Body height 168.28 cm Nicholas Michaels Other [facility] 06-13-2023 11:00-0500 Body mass index (BMI) [Ratio] 48.53 kg/m2 Nicholas Michaels Other [facility] Other 06-13-2023 11:00-0500 Body weight 137.44 kg Nicholas Michaels Other [facility] Other 06-13-2023 11:00-0500 Body weight 137.43 kg [facility] Phone: [facility] 06-13-2023 11:00-0500 Diastolic blood pressure 82 mm[Hg] Nicholas Michaels Other [facility] 06-13-2023 11:00-0500 Respiratory rate 18 /min Nicholas Michaels Other [facility] Other 06-13-2023 11:00-0500 SaO2% (BldA) [Mass fraction] 97 % Nicholas Michaels Other [facility] Other 06-13-2023 11:00-0500 Systolic blood pressure 120 mm[Hg] Nicholas Michaels Other [facility] 01-08-2023 10:45-0400 Body height 168.28 cm Nicholas Michaels Other [facility] Other 01-08-2023 10:45-0400 Body mass index (BMI) [Ratio] 52.89 kg/m2 Nicholas Michaels Other [facility] Other 01-08-2023 10:45-0400 Body weight 149.78 kg Nicholas Michaels Other [facility] Other 01-08-2023 10:45-0400 Diastolic blood pressure 81 mm[Hg] Nicholas Michaels Other [facility] Other 01-08-2023 10:45-0400 Respiratory rate 18 /min Nicholas Nolio Other [facility] Other 01-08-2023 10:45-0400 SaO2% (BldA) [Mass fraction] 97 % Nicholas Nolio Other [facility] Other 01-08-2023 10:45-0400 Systolic blood pressure 122 mm[Hg] Nicholas Nolio Other [facility] Other 06-18-2022 16:57-0500 Body height 167.64 cm Services [facility] Work Phone: [facility] 06-18-2022 16:57-0500 Body weight 157 kg Services [facility] Work Phone: [facility] 06-18-2022 16:56-0500 Body temperature 98.3 [degF] [facility] Work Phone: [facility] 06-18-2022 16:56-0500 Diastolic blood pressure 67 mm[Hg] Services [facility] Work Phone: [facility] 06-18-2022 16:56-0500 Heart rate 95 /min Services [facility] Work Phone: [facility] 06-18-2022 16:56-0500 Respiratory rate 20 /min Services [facility] Work Phone: [facility] 06-18-2022 16:56-0500 SaO2% (BldA) [Mass fraction] 97 % [facility] Work Phone: [facility] 06-18-2022 16:56-0500 Systolic blood pressure 158 mm[Hg] Services [facility] Work Phone: [facility] 12-02-2021 20:26-0400 Body height 167.64 cm Services [facility] Work Phone: [facility] 12-02-2021 20:26-0400 Body temperature 98.2 [degF] [facility] Work Phone: [facility] 12-02-2021 20:26-0400 Body weight 144.24 kg [facility] Work Phone: [facility] 12-02-2021 20:26-0400 Diastolic blood pressure 89 mm[Hg] Services [facility] Work Phone: [facility] 12-02-2021 20:26-0400 Heart rate 104 /min Services [facility] [employer] Work Phone: [facility] 12-02-2021 20:26-0400 Respiratory rate 20 /min [facility] Work Phone: [facility] 12-02-2021 20:26-0400 SaO2% (BldA) [Mass fraction] 96 % Services [employer] Work Phone: [facility] 12-02-2021 20:26-0400 Systolic blood pressure 156 mm[Hg] Services [employer] Work Phone: [facility] 06-19-2020 11:10-0500 BMI (Body Mass Index) 46.65 kg/m2 Bayron Mccarty OD-KLEQT-Wehdii 310 IVF Work Phone: 06-19-2020 11:10-0500 Body weight 131.09 kg Bayron Mccarty WU-CXXYB-Winzmg 310 IVF Work Phone: 06-19-2020 11:10-0500 BSA (Body Surface Area) 2.34 m2 Bayron Mccarty FS-VOSLU-Bkcini 310 IVF Work Phone: 06-19-2020 11:10-0500 Height 167.64 cm Bayron Mccarty WY-QSPUR-Ncwhgr 310 IVF Work Phone: 06-19-2020 11:10-0500 1 1 Bayron Mccarty DF-VLVRF-Dbznaz 310 IVF Work Phone: Comment on above: 06-19-2020 11:10-0500 0 1 Bayron Mccarty NZ-LXIWK-Vqiecx 310 IVF Work Phone: Comment on above: [...] Start: 04-06-2024 End: 04-06-2024 Bamboo flowsheet Mena CARRLILO Work Phone: [facility] Start: 04-06-2024 [...] 03-30-2024 End: 03-30-2024 ambulatory TACHO R SHON [facility] Start: 03-22-2024 End: 03-22-2024 Bamboo flowsheet [...] End: 03-05-2024 Emergency department patient visit Services [facility] Work Phone: [facility] Work Phone: Start: 03-01-2024 End: 03-01-2024 Orders Only Veda Hayes RN Maternal- Medic ine at [facility] Comment on above: Encounter for follow -up ultrasound of anatomy (Primary Dx); History of pre-eclampsia in prior , currently ; History of delivery, currently ; Obesity affecting in second trimester, unspecified obesity type Start: 02-26-2024 End: 02-26-2024 Emergency department patient visit Services [facility] Work Phone: [facility]Emergency Room Work Phone: Start: 02-23-2024 [...] Start: 02-17-2024 End: 02-17-[address] [facility] Start: 01-26-2024 End: 01-26-2024 Clinisync Result Encounter Tacho Sohn DO Work Phone: [facility] External Department Unsolicited Start: 01-26-2024 End: 01-26-2024 Clinisync Result Encounter Tacho Shon DO Work Phone: [facility] External Department Unsolicited Start: 01-20-2024 End: 01-20-2024 ambulatory TACHO SHON Not Available Start: 01-19-2024 End: 01-19-20[facility] Start: 12-23-2023 End: 12-23-2023 ambulatory MENA ANN Not Available Start: 11-25-2023 End: 11-25-2023 ambulatory TACHO SHON Not Available Start: 10-30-2023 End: 10-30-2023 ambulatory TACHO SHON Not Available Start: 10-09-2023 End: 10-09-2023 ambulatory LATONIA GREENE Facility:[facility] Start: 10-06-2023 End: 10-06-2023 Emergency department patient visit Services [facility] [place] Work Phone: [facility] Work Phone: Start: 09-17-2023 End: 09-17-2023 ambulatory ANNA ORTIZ Facility:[facility] Start: 09-17-2023 End: 09-17-2023 Nutrition therapy Anna Ortiz RD Nutrition Therapy Comment on above: Obesity, Class III, BMI 40-49.9 (morbid obesity) (HCC) (Primary Dx); Dietary counseling Start: 09-17-2023 End: 09-17-2023 Telemedicine consultation with patient Anna Ortiz RD Nutrition Therapy Start: 09-15-2023 Admission to same da y surgery center Tonya Senior PATROL DEPUTY SHERIFF.ELECTRONIC ENGINEERING DRAFTSPERSON Work Phone: General Surgery Comment on above: Results Start: 09-15-2023 E-mail encounter dena torres caregiver Tonya K Parrish PATROL DEPUTY SHERIFF.ELECTRONIC ENGINEERING DRAFTSPERSON Work Phone: General Surgery Start: 09-11-2023 Telephone encounter Tonya Senior PATROL DEPUTY SHERIFF.ELECTRONIC ENGINEERING DRAFTSPERSON Work Phone: General Surgery Comment on above: Results Start: 09-08-2023 End: 09-08-2023 ambulatory TONYA SENIOR Facility:[facility] Start: 09-05-2023 End: 09-05-2023 ambulatory TONYA SENIOR Facility:[facility] Start: 09-01-2023 End: 09-02-2023 ambulatory LATONIA GREENE Facility:[facility] Start: 09-01-2023 End: 09-01-2023 Admission to same day surgery center Latonia Greene PhD Work Phone: General Surgery BMI PSYL Comment on above: NO SHOW (Primary Dx) Start: 09-01-2023 End: 09-01-2023 Telemedicine consultation with patient Latonia Greene PhD Work Phone: General Surgery BMI PSYL Start: 08-20-2023 [facility] Tonya Senior PATROL DEPUTY SHERIFF.ELECTRONIC ENGINEERING DRAFTSPERSON Work Phone: General Surgery Comment on above: Welcome to Bariatric Surgery Start: 08-20-2023 E-mail encounter dena torres caregiver Tonya Ron Senior PATROL DEPUTY SHERIFF.ELECTRONIC ENGINEERING DRAFTSPERSON Work Phone: [facility] Start: 08-20-2023 End: 08-20-2023 ambulatory Tonya Senior PATROL DEPUTY SHERIFF.ELECTRONIC ENGINEERING DRAFTSPERSON Work Phone: General Surgery Comment on above: Body mass index (BMI ) of 50-59.9 in adult (HCC) (Primary Dx); Angel's thyroiditis; High blood cholesterol Start: 08-20-2023 End: 08-20-2023 Telemedicine consultation with patient Tonya Senior FRED.ELECTRONIC ENGINEERING DRAFTSPERSON Work Phone: [facility] Start: 08-07-2023 End: 08-07-2023 ambulatory Services [facility] Work Phone: [facility] Work Phone: Start: 08-07-2023 End: 08-07-2023 Patient encounter procedure Services [facility] Work Phone: [facility] Work Phone: Start: 06-13-2023 Follow-up encounter Nicholas Michaels [facility] Start: 06-13-2023 Registered Recurring Services [facility] Work Phone: [facility] Work Phone: Start: 06-13-2023 End: 06-13-2023 ambulatory Nicholas Michaels [employer] Other Start: 06-13-2023 End: 06-13-2023 Patient encounter procedure Services [facility] [place] [facility] Work Phone: [facility]- Start: 01-08-2023 End: 01-08-2023 ambulatory Nicholas Michaels Other [place] [employer] Other Start: 01-08-2023 Nutrition therapy Nicholas Michaels [facility] Start: 06-18-2022 End: 06-18-2022 Emergency department patient visit Services [facility] Work Phone: [facility]gency [facility] Work Phone: Start: 06-03-2022 End: 06-03-[address] TACHO MENENDEZ Facility:[facility] Start: 12-02-2021 End: 12-02-2021 Emergency department patient visit Services [facility] Work Phone: [facility] Start: 07-08-2020 Patient encounter procedure Bayron Mccarty CW-TTXYX-Iexncw 310 IVF Work Phone: Start: 07-05-2020 Patient [...] Start: 08-01-2017 End: 08-02-2017 Ambulatory Agustin Neida Facility:CD:[id number] Start: 07-14-2017 End: 07-15-2017 Ambulatory [facility] Facility:CD:[id number] Procedures Date Procedure Procedure Detail Performing [...] Start: 03-05-2024 Plain chest X-ray Servi malina Tucker Blair [facility] Work Phone: Start: 03-05-2024 Respiratory Panel (PCR) Services Tucker Blair [facility] Work Phone: Start: 03-05-2024 Streptococcus pyogen es antigen assay Services Tucker Blair [employer] Work Phone: Start: 02-26-2024 Streptococcus pyogen es antigen assay Services [employer] Phone: Start: 02-23-2024 Urnls dip stick/tabl et rgnt non-auto w/o micrscp Mena CARRILLO Work Phone: Start: 01-26-2024 ALL THYROID STIM HORMONE Tacho Mennedez [employer] Work Phone: Start: 12-23-2023 Microscopic observat ion [Identifier] in Cervix by Cyto stain Tacho Menendez [employer] Work Phone: Start: 07-06-2020 Antibody screen Comment on above: Performed By: #### T +S #### [facility] [address] [place] [address] Start: 07-05-2020 IO Ultrasound, limit ed pelvic, follicle monitoring Bayron Mccarty Start: 06-26-2020 IO Ultrasound, limit ed pelvic, follicle monitoring Bayron Mccarty Start: 05-10-2020 Assay of progesterone J sharath Mccarty Adenoid excision Bayron wallace Cholecystectomy Bayron Chen ey SARS Antigen (LFIA) Services [employer] Phone: Plan of Treatment Date Care Activity Detail Author Start: 12-22-2028 Screening for malign ant neoplasm of cervix [facility] Start: 12-22-2026 Screening for malign ant neoplasm of cervix Pap Smear [facility] Start: 03-01-2025 End: 03-01-2025 US MFM with or without consult US MFM with or without consult Imaging Routine Encounter for follow-up ultrasound of anatomy History of pre-eclampsia in prior , currently History of delivery, currently Obesity affecting in second trimester, unspecified obesity type Expected: 03/01/2025 (Approximate), Expires: 03/01/2025 [employer] Phone: Comment on above: Expected: 03/01/2025 (Approximate), Expires: 03/01/2025 Start: 01-18-2025 Adult BMI Screening [facility] Start: 01-18-2025 Tobacco Screening [facility] Start: 05-03-2024 End: 05-03-2024 Patient encounter procedure 05/03/2024 2:50 PM EST Routine [facility] [address] [place] [id number] Mena Ann PA [address] [place] [address] [facility] Start: 04-22-2024 End: 04-22-2025 [...] [address] [place] [address] Mena Ann PA [address] [place], [place] [id number] [facility] Start: 03-30-2024 End: 03-30-2024 Patient encounter procedure 03/30/2024 2:45 PM EST Appointment [facility] - Ultrasound [address] [place] [phone] [facility]tras[facility] Start: 03-22-2024 End: 03-22-2024 Patient encounter procedure 03/22/2024 1:50 PM EST Routine [facility] [address] [place] [phone] Tacho Menendez, DO [address] [place] [address] [facility] Start: 03-22-2024 End: 03-22-2024 Professional / ancillary services management 03/22/2024 1:00 PM EST Ancillary Procedure [facility] [address] [place] [phone] [facility] Start: 03-16-2024 End: 03-16-2024 Patient encounter procedure 03/16/2024 1:30 PM EST Routine [facility] [address] [place] [phone] Tacho Menendez, DO [address] [place] [address] [facility] Start: 02-23-2024 End: 02-22-2025 CBC panel - Blood by Automated count CBC Lab Routine Diabetes mellitus screening Expected: 02/23/2024 (Approximate), Expires: 02/22/2025 [facility] Work Phone: Comment on above: Expected: 02/23/2024 (Approximate), Expires: 02/22/2025 Start: 02-23-2024 End: 02-22-2025 Measurement of glucose 1 hour after glucose challenge for glucose tolerance test Glucose tolerance, 1 hour Lab Routine Diabetes mellitus screening Expected: 02/23/2024 (Approximate), Expires: 02/22/2025 [facility] Comment on above: Expected: 02/23/2024 (Approximate), Expires: 02/22/2025 Start: 02-23-2024 End: 02-22-2025 US for US OB SCAN FOR GROWTH Imaging Routine size inconsistent with dates H/O premature delivery Expected: 02/23/2024 (Approximate), Expires: 02/22/2025 [facility] Comment on above: Expected: 02/23/2024 (Approximate), Expires: 02/22/2025 Start: 02-23-2024 End: 02-23-2024 Patient encounter procedure 02/23/2024 1:40 PM EDT Routine [facility] [address] [place] [phone] Mena Ann PA [address] [place], [facility] Arrived [facility] Comment on above: Arrived Start: 02-18-2024 End: 02-18-2024 Patient encounter procedure 02/18/2024 2:30 PM EDT Routine [facility] [address] [place] [address] Mena Ann PA [address] [place], [place] [id number] [facility] Start: 01-11-2024 COVID-19 Vaccine ( season) COVID-19 Vaccine ( season) [facility] Start: 01-11-2024 Influenza vaccination N [facility] Start: 09-17-2023 End: 09-17-2023 Nutrition therapy 09/17/2023 2:30 PM EDT [facility] Nutrition Therapy [address] [place] [address] Anna Ortiz, RD [address] [place] [address] Red/Davis/0 Diet/[place] Nutrition Therapy Comment on above: Red/Davis/0 Diet/ [place] Start: 09-12-2023 End: 09-12-2023 Admission to same day surgery center 09/12/2023 3:30 PM EDT [facility] General Surgery [address] [place] [address] Joo Bradley MD [address] [place] [address] Red/Kirk/0 Diet/[place] General Surgery Comment on above: Red/Kirk/0 Diet/Anth em Start: 09-05-2023 End: 09-05-2023 ambulatory 09/05/2023 11:45 AM EDT Results Only [facility] [address] [place] [address] [facility] Start: 08-20-2023 End: 11-19-2023 25-hydroxyvitamin D3 [Mass/volume] in Serum or Plasma VITAMIN D 25 HYDROXY Lab Routine Body mass index (BMI) of 50-59.9 in adult (HCC) Expected: 08/20/2023, Expires: 11/19/2023 [facility] Work Phone: Comment on above: Expected: 08/20/2023 , Expires: 11/19/2023 Start: 08-20-2023 End: 11-19-2023 CBC W Auto Differential panel - Blood COMPLETE BLOOD COUNT AND DIFFERENTIAL Lab Routine Body mass index (BMI) of 50-59.9 in adult (HCC) Expected: 08/20/2023, Expires: 11/19/2023 [facility] Work Phone: Comment on above: Expected: 08/20/2023 , Expires: 11/19/2023 Start: 08-20-2023 End: 11-19-2023 Cobalamin (Vitamin B12) [Mass/volume] in Serum or Plasma VITAMIN B12 Lab Routine Body mass index (BMI) of 50-59.9 in adult (HCC) Expected: 08/20/2023, Expires: 11/19/2023 [facility] Work Phone: Comment on above: Expected: 08/20/2023 , Expires: 11/19/2023 Start: 08-20-2023 End: 11-19-2023 Comprehensive metabolic 2000 panel - Serum or Plasma COMPREHENSIVE METABOLIC PANEL Lab Routine High blood cholesterol Body mass index (BMI) of 50-59.9 in adult (HCC) Expected: 08/20/2023, Expires: 11/19/2023 [facility] Work Phone: Comment on above: Expected: 08/20/2023 , Expires: 11/19/2023 Start: 08-20-2023 End: 11-19-2023 Ferritin [Mass/volume] in Serum or Plasma FERRITIN Lab Routine Body mass index (BMI) of 50-59.9 in adult ([facility]) Expected: 08/20/2023, Expires: 11/19/2023 [facility] Work Phone: Comment on above: Expected: 08/20/2023 , Expires: 11/19/2023 Start: 08-20-2023 End: 11-19-2023 Folate [Mass/volume] in Serum or Plasma FOLATE, SERUM Lab Routine Body mass index (BMI) of 50-59.9 in adult ([facility]) Expected: 08/20/2023, Expires: 11/19/2023 [facility] Work Phone: Comment on above: Expected: 08/20/2023 , Expires: 11/19/2023 Start: 08-20-2023 End: 11-19-2023 Helicobacter pylori IgG Ab [Presence] in Serum or Plasma by Immunoassay H PYLORI IGG AB Lab Routine Body mass index (BMI) of 50-59.9 in adult ([facility]) Expected: 08/20/2023, Expires: 11/19/2023 [facility] Work Phone: Comment on above: Expected: 08/20/2023 , Expires: 11/19/2023 Start: 08-20-2023 End: 11-19-2023 Hemoglobin A1c in Blood HEMOGLOBIN A1C Lab Routine Body mass index (BMI) of 50-59.9 in adult ([facility]) Expected: 08/20/2023, Expires: 11/19/2023 [facility] Work Phone: Comment on above: Expected: 08/20/2023 , Expires: 11/19/2023 Start: 08-20-2023 End: 11-19-2023 Iron and Iron binding capacity panel - Serum or Plasma IRON AND TIBC Lab Routine Body mass index (BMI) of 50-59.9 in adult ([facility]) Expected: 08/20/2023, Expires: 11/19/2023 [facility] Work Phone: Comment on above: Expected: 08/20/2023 , Expires: 11/19/2023 Start: 08-20-2023 End: 11-19-2023 Lipid 1996 panel - Serum or Plasma LIPID PANEL BASIC Lab Routine High blood cholesterol Body mass index (BMI) of 50-59.9 in adult ([facility]) Expected: 08/20/2023, Expires: 11/19/2023 [facility] Work Phone: Comment on above: Expected: 08/20/2023 , Expires: 11/19/2023 Start: 08-20-2023 End: 11-19-2023 Natriuretic peptide.B prohormone N-Terminal [Mass/volume] in Serum or Plasma NT PRO BNP Lab Routine Body mass index (BMI) of 50-59.9 in adult ([facility]) Expected: 08/20/2023, Expires: 11/19/2023 [facility] Work Phone: Comment on above: Expected: 08/20/2023 , Expires: 11/19/2023 Start: 08-20-2023 End: 11-19-2023 NICOTINE & METAB, UR NICOTINE & METAB, UR Lab Routine Body mass index (BMI) of 50-59.9 in adult ([facility]) Expected: 08/20/2023, Expires: 11/19/2023 [facility] Work Phone: Comment on above: Expected: 08/20/2023 , Expires: 11/19/2023 Start: 08-20-2023 End: 11-19-2023 Thyrotropin [Units/volume] in Serum or Plasma THYROID STIMULATING HORMONE Lab Routine Angel's thyroiditis Body mass index (BMI) of 50-59.9 in adult ([facility]) Expected: 08/20/2023, Expires: 11/19/2023 [facility] Work Phone: Comment on above: Expected: 08/20/2023 , Expires: 11/19/2023 Start: 08-20-2023 End: 11-19-2023 TOXICOLOGY SCREEN, ROUTINE URINE TOXICOLOGY SCREEN, ROUTINE URINE Lab Routine Body mass index (BMI) of 50-59.9 in adult (HCC) Expected: 08/20/2023, Expires: 11/19/2023 [facility] Work Phone: Comment on above: Expected: 08/20/2023 , Expires: 11/19/2023 Start: 08-20-2023 End: 11-19-2023 VITAMIN B1 (THIAMINE), WHOLE BLOOD VITAMIN B1 (THIAMINE), WHOLE BLOOD Lab Routine Body mass index (BMI) of 50-59.9 in adult (HCC) Expected: 08/20/2023, Expires: 11/19/2023 [facility] Work Phone: Comment on above: Expected: 08/20/2023 , Expires: 11/19/2023 Start: 05-12-2023 Behavioral Health Screening Behavioral Health Screening [facility] Start: 01-10-2023 Covid-19 Vaccine () Covid-19 Vaccine () [facility] Start: 12-02-2021 Plain chest X-ray XR chest 1V portab [facility] Start: 12-02-2021 XR Chest Single view [facility] Work Phone: Start: 2021 Screening for malign ant neoplasm of cervix HPV Testing [facility] Start: 2012 Screening for malign ant neoplasm of cervix Pap Testing [facility] Start: 2010 Hepatitis B Vaccine (1 of 3 - 19+ 3-dose series) Hepatitis B Vaccine (1 of 3 - 19+ 3-dose series) [facility] Start: 2009 Adult BMI Follow Up Plan Adult BMI Follow Up Plan [facility] Start: 2009 HIV screening HIV Screening [facility] Start: 2003 Depression Screening [facility] Start: 2002 DTaP,Tdap and Td Vaccines (6 - Tdap) DTaP,Tdap and Td Vaccines (6 - Tdap) [facility] Start: 2002 Urine microalbumin profile DTaP,Tdap,Td Vaccine (6 - Tdap) [facility] End: 08-19-2024 ECG COMPLETE ECG COMPLETE ECG Routine Body mass index (BMI) of 50-59.9 in adult (HCC) 1 Occurrences starting 08/20/2023 until 08/19/2024 [facility] Work Phone: Comment on above: 1 Occurrences starti ng 08/20/2023 until 08/19/2024 Patient Education [facility] Work Phone: Patient referral [facility] Work Phone: Thyrotropin [Units/volume] in Serum or Plasma TSH Lab Routine Thyroid disease (CMS/HCC) Ordered: 04/22/2024 [facility] Comment on above: Ordered: 04/22/2024 End: 09-18-2024 US Abdomen RUQ US ABD RIGHT UPPER QUADRANT Radiology Routine Body mass index (BMI) of 50-59.9 in adult (HCC) 1 Occurrences starting 08/20/2023 until 09/18/2024 [facility] Work Phone: Comment on above: 1 Occurrences starti ng 08/20/2023 until 09/18/2024 End: 09-18-2024 XR Chest PA and Lateral XR CHEST 2V FRONTAL/LAT Radiology Routine Body mass index (BMI) of 50-59.9 in adult ([facility]) 1 Occurrences starting 08/20/2023 until 09/18/2024 [facility] Work Phone: Comment on above: 1 Occurrences starti ng 08/20/2023 until 09/18/2024 [id number]-[id number] 310 IVF Work Phone: [facility] NEGATED: Highlighted row has been ruled out! Planned Goals not documented SM-KRPFZ-Wawldc 310 IVF Work Phone: Immunizations Immunization Date Immunization Notes Care Provider Fa ciliestuardo 03-11-2023 influenza virus vacc ine, unspecified formulation Tacho Menendez DO Work Phone: [facility] Healthcare Payers Date Payer Category Payer Self-pay [id number] 2022 Medicaid [id number] 2022 Medicaid [id number] 1991 Unknown [id number] [id number] 3 1991 Unknown [id number] 2.16.840.1.865219.3.579.2.12 86 1991 Unknown [id number] 2.16.840.1.452517.3.579.2.12 86 1991 Unknown [id number] 2.16.840.1.006558.3.579.2.12 86 1991 Unknown [id number] 2.16.840.1.990915.3.579.2.12 86 1991 Unknown [id number] 2.16.840.1.345643.3.579.2.12 59 1991 Unknown [id number] 2.16.840.1.291766.3.579.2.12 59 1991 Unknown [id number] 2.16.840.1.823235.3.579.2.12 59 1991 Unknown [id number] 2.16.840.1.638026.3.579.2.12 59 1991 Unknown [id number] 2.16.840.1.502526.3.579.2.12 59 1991 Unknown [id number] 2.16.840.1.476034.3.579.2.12 59 1991 Unknown [id number] 2.16.840.1.511743.3.579.2.12 59 1991 Unknown [id number] 2.16.840.1.636409.3.579.2.12 59 1959 Medicaid [id number] Private Health Insurance [facility] [id number] Unknown [id number] Unknown Regular Insurance [id number] Unknown [facility] [id number] Unknown Regular Auto/Medical [id number] Unknown [id number] [id number] 1 Unknown [id number] 2.16.840.1.360569.3.579.2.53 1 Unknown [id number] 2.16.840.1.912837.3.579.2.53 1 Unknown [id number] [id number] 1 Social History Date Type Detail Facility Start: 12-02-2021 End: 05-17-2023 Tobacco smoking status NHIS Never smoked tobacco (finding) [facility] Start: 1990 Sex Assigned At Female F [facility] Start: 05-17-2023 End: 08-20-2023 Sex Assigned At [facility] Other Start: 05-17-2023 End: 08-20-2023 Tobacco use and exposure Smokeless tobacco non-user [facility] Work Phone: Start: 08-20-2023 End: 04-22-2024 Alcohol intake Current drinker of alcohol (finding) [facility] Start: 05-17-2023 End: 08-20-2023 History of Social function [facility] National Score (1-100), lower number is lower risk 86 [facility] Start: 08-20-2023 Alcohol Comment occ [facility] Start: 1990 Sex Assigned At Not on file [facility] Start: 08-26-2023 Gender identity Identifies as female gender (finding) [facility] Start: 08-26-2023 Sexual orientation Heterosexual (fin ding) [facility] Start: 09-14-2023 [facility] How often to you hav [...] 01-19-2024 Alcoholic beverage intake Ex-drinker (finding) [facility] Start: 12-13-2014 Sex Female (finding) [facility] NEGATED: Highlighted row - - [id number] 310 IVF Work Phone: Functional Status Date Assessment Result Facility NEGATED: Highlighted row Functional performance Functional status health issues are not documented Disease [id number] 310 IVF Work Phone: Mental Status Date Assessment Result Facility NEGATED: Highlighted row Cognitive function [Interpretation] Cognitive status health issues are not documented Disease [id number]-ILGUP-Olnehl 310 IVF Work Phone: Clinical Notes 01-08-2023 to 04-22-2024 Priscilla Fernandez, CERAMIC MOLD DESIGNER - 04/22/2024 9:40 AM GERARDO Hunter - [...] Morbid obesity with BMI of 50.0-59.9, adult (CMS/[facility]) Vaginal delivery HISTORY PAST MEDICAL HISTORY SOCIAL HISTORY Past Medical History: Diagnosis Date Abdominal pain Breast pain, right Cholelithiasis Encounter for cervical smear to confirm findings of recent normal smear following initial abnormal smear Angel's disease (CMS/HCC) Hypothyroidism (CMS/HCC) Morbid obesity (CMS/HCC) Morbid obesity with BMI of 50.0-59.9, adult ([facility] [facility]) Vaginal delivery Social History Tobacco Use [...] nursing note reviewed. Exam conducted with a senior cytogenetics laboratory director present. Vitals: Estimated body mass index is [...] Tacho Menendez DO documented in this encounter [facility] 04-06-2024 History of Presen t illness Narrative [...] Morbid obesity with BMI of 50.0-59.9, adult (CMS/[facility]) Vaginal delivery Social History Tobacco Use [...] of: GERARDO Vazquez documented in this encounter [facility] 03-22-2024 History of Presen t illness Narrative [...] Morbid obesity with BMI of 50.0-59.9, adult (CMS/[facility]) Vaginal delivery HISTORY PAST MEDICAL HISTORY SOCIAL HISTORY Past Medical History: Diagnosis Date Abdominal pain Breast pain, right Cholelithiasis Encounter for cervical smear to confirm findings of recent normal smear following initial abnormal smear Angel's disease (CMS/HCC) Hypothyroidism (CMS/HCC) Morbid obesity (CMS/HCC) Morbid obesity with BMI of 50.0-59.9, adult (CMS/[facility]) Vaginal delivery Social History Tobacco Use [...] nursing note reviewed. Exam conducted with a senior cytogenetics laboratory director present. Vitals: Estimated body mass index is [...] Tacho Menendez DO documented in this encounter [facility] 02-23-2024 History of Presen t illness Narrative [...] Morbid obesity with BMI of 50.0-59.9, adult (CMS/[facility]) Vaginal delivery Social History Tobacco Use [...] nursing note reviewed. Exam conducted with a senior cytogenetics laboratory director present. Vitals: Estimated body mass index is [...] of: GERARDO Vazquez documented in this encounter [facility] 10-09-2023 Note HNO ID: [id number] Author: LATONIA GREENE, PhD Service: ? Author Type: Psychologist Type: Progress Notes Filed: 10/17/2023 11:09 Note Text: [facility] BARIATRIC SURGERY BEHAVIORAL HEALTH EVALUATION BMI Surgical Pathway Visit type: Psychology Visit DATE OF SERVICE: October 09, 2023 TIME OF SERVICE: 1:00 PM - 2:00 PM COST CENTER: [facility] CPT CODE: - [id number] Virtual Psych Diagnostic Eval BILLING CODE: ENDO PSYL MAIN Jerel DATE OF FIRST SERVICE THIS CYCLE: October 09, 2023 SESSION #: 1 I have communicated my name and active licensure. The patient's identity and physical location (see below) were verified at the time of this visit. Either the patient or their legal agency service representative has been informed of the risks and benefits of -- and alternatives to -- treatment through a remote evaluation and consents to proceed with the evaluation remotely. This evaluation is NOT intended for forensic, disability or child custody purposes. The patient e-signed a copy of the consent form via [employer] and the [facility] insurance benefits, fees for service, emergency [...] in case of emergency and/or disconnection. [address] [place] [address] (Change address in [facility], was mother) Alternate Banana Loader Bibi Arrieta (Mother) [phone] (Home Phone) Patient identified the following plan to follow in case of emergency: Go to emergency room (nearest is [facility]) or call 911. IDENTIFYING INFORMATION: Ms. Jaleesa [...] pt has l (more content not included)... [facility] 09-22-2023 Telephone encounter Note Can not schedule patient as there is already a patient scheduled for that day and time. Please advise. Thanks Meme Castrejon [facility] 09-22-2023 Telephone encounter Note ----- Message from Anna Ortiz RD sent at 09/17/2023 3:17 PM EDT ----- Regarding: virtual follow up Please schedule for a virtual up 10/16 at 1. The patient is aware, no call needed. Thank you! Anna [facility] 09-22-2023 Miscellaneous Notes Can not schedule [...] levels, no answer, left vm. Tonya Senior APRN.ELECTRONIC ENGINEERING DRAFTSPERSON documented in this encounter [facility] 09-17-[address] - [...] full-liquid diet. Examples: Slim Fast Advanced Nutrition [place] Breakfast Essentials Light Start Drink mixed with [...] Bariatric Multivitamin and Calcium Citrate (total of 3617-1405 mg/day) * take calcium citrate separately from Multivitamin with iron at least 2 hours apart and 4 hours apart from additional calcium www.[employer] EDI[employer] - Bariatric Choice: 4 Complete Multivitamins (chewables) [...] grams per day documented in this encounter [facility] 09-17-2023 Note HNO ID: [id number] Author: ANNA ORTIZ RD Service: ? Author Type: Registered Dietitian Type: Progress Notes Filed: 09/17/2023 15:19 Note Text: [facility] Nutrition Therapy: Virtual Consult - Initial Assessment I have communicated my name and active licensure. The patient?s identity and physical location were verified at the time of this visit. Either the patient or their legal agency service representative has been informed of the [...] to Surgery by next session [email or web address] -[email or web address]/ [email or web address] 2. Do not skip [...] Examples: ? Slim Fast Advanced Nutrition ? [place] Breakfast Essentials ?Light Start? Drink mixed with [...] Bariatric Multivitamin and Calcium Citrate (total of 1831-5555 mg/day) * take calcium citrate separately from Multivitamin with iron at least 2 hours apart and 4 hours apart from additional calcium www.[employer] - Bariatric Choice: 4 Complete Multivitamins (chewables) per day Www.bariatricchoice.[employer] - Bariatric Advantage: 2 Multivitamins and 3 Calcium Citrate Chewables per day * take calcium citrate separately from Multivitamin with iron at least 2 hours apart and 4 hours apart from additional calcium Www.bariatricadEvolvaage.[employer] Start practicing eating slowly, chewing each bite [...] and using Phen (more content not included)... [facility] 09-17-2023 History of Presen t illness Narrative [facility] Nutrition Therapy: Virtual Consult - Initial Assessment I have communicated my name and active licensure. The patient s identity and physical location were verified at the time of this visit. Either the patient or their legal agency service representative has been informed of the [...] Your Guide to Surgery by next session [email or web address] -/[email or web address]/ [email or web address] [email or web address]?la=en 2. Do not skip [...] full-liquid diet. Examples: Slim Fast Advanced Nutrition [place] Breakfast Essentials Light Start Drink mixed with [...] in the AM, 2 in the PM) www.bariatricfusion.[employer] - ab&jb properties and services Health: 1 Bariatric Multivitamin and Calcium Citrate (total of 2396-3840 mg/day) * take calcium citrate separately from Multivitamin with iron at least 2 hours apart and 4 hours apart from additional calcium www.[employer] - Bariatric Choice: 4 Complete Multivitamins (chewables) per day Www.bariatricchoice.[employer] - Bariatric Advantage: 2 Multivitamins and 3 Calcium Citrate Chewables per day * take calcium citrate separately from Multivitamin with iron at least 2 hours apart and 4 hours apart from additional calcium Www.bariatricadvantage.[employer] Start practicing eating slowly, chewing each bite [...] suggested by 180 Initial weight: 295 lbs. Shorter body weight is 155 lbs. Excess body weight is 140 lbs. Goal weight pre-op is 281 lbs. Protein needs are estimated at 85gm (1.2 - protein/kg IBW) Patient meets the National Institutes of Health guidelines for weight loss surgery and has [place] Insurance therefore is required to complete 0 [...] pizz rolls, sandwich, chips Snack - slim [facility] Center[facility] dick cNikkivookies cheese crackers Beverages - water, [...] TIME: 2:25 PM documented in this encounter [facility] 09-11-2023 Telephone encounter Note Attempted to call pt, re: hypothyroid and low vitamin d levels, no answer, left vm. Tonya Senior APRN.ELECTRONIC ENGINEERING DRAFTSPERSON [facility] 09-01-2023 Note HNO ID: [id number] Author: LATONIA GREENE, PhD Service: ? Author Type: Psychologist Type: Progress Notes Filed: 09/01/2023 13:22 Note Text: [facility] Progress Note 09/01/2023 Billing code: Jerel Patient did not attend, cancel, or reschedule this appointment. Provider left HIPAA compliant voicemail and [employer] message with contact information to reschedule. Latonia Greene, PhD Clinical Psychologist [facility] 09-01-2023 History of Presen t illness Narrative [facility] Progress Note 09/01/2023 Billing code: Jerel Patient did not attend, cancel, or reschedule this appointment. Provider left HIPAA compliant voicemail and [employer] message with contact information to reschedule. Latonia Greene, PhD Clinical Psychologist documented in this encounter [facility] 08-20-2023 Note HNO ID: [id number] Author: TONYA SENIOR APRN.MERON Service: ? Author Type: Nurse Practitioner Type: Progress Notes Filed: 08/20/2023 16:21 Note Text: have communicated my name and active licensure. The patient's identity and physical location were verified at the time of this visit. Either the patient or their legal agency service representative has been informed of the risks and benefits of -- and alternatives to -- treatment through a remote evaluation and consents to proceed with the evaluation remotely. BMI MEDICAL CONSULT I have communicated my name and active licensure. The patient's identity and physical location were verified at the time of this visit. Either the patient or their legal agency service representative has been informed of the [...] HEMOGLOBIN A1C - (more content not included)... [facility] 08-20-2023 History of Presen t illness Narrative Images from the original note were not included. have communicated my name and active licensure. The patient's identity and physical location were verified at the time of this visit. Either the patient or their legal agency service representative has been informed of the risks and benefits of -- and alternatives to -- treatment through a remote evaluation and consents to proceed with the evaluation remotely. BMI MEDICAL CONSULT I have communicated my name and active licensure. The patient's identity and physical location were verified at the time of this visit. Either the patient or their legal agency service representative has been informed of the [...] PANEL - LIPID PANEL BASIC Tonya Senior, FRED.ELECTRONIC ENGINEERING DRAFTSPERSON -- Recommend that she should not become [...] Obesity Medicine Visit documented in this encounter [facility] 06-13-2023 Evaluation note Encounter Date Diagnosis [...] 8 weeks -Handed patient self referral to [facility] bariatric surgery program -Lgjzj-ty-sokx A1c December 2022 5.4%-Follow up in clinic in 8 weeksThis note was created with voice recognition software. Please excuse errors in clerical supervisor. Jun, Dietary surveillance and counseling (ICD-10 [...] for a goal of 5% weight reduction. [facility] Other 08-30-2023 Evaluation note* Encounter Date Diagnosis [...] on in the past and denies side zyaxaqx-Ivxkh-jn-care A1c today 5.4%-Follow up in clinic in 4 weeksThis note was created with voice recognition software. Please excuse errors in clerical supervisor. Dec, Dietary surveillance and counseling (ICD-10 [...] premade protein drink for breakfast, by plain Sinhala yogurt and flavor yourself with cinnamon or [...] with the patient, and documenting clinical information. [facility] Other chief complaint+Reason for visit Narrative* Chief Complaint Obesity Reason for Visit Exercise counseling Severe obesity (BMI >= 40) [facility] Work Phone: chief complaint+Reason for visit Narrative* Chief Complaint Pos test, Cramping, Vaginal bleeding Reason for Visit Exercise counseling Severe obesity (BMI >= 40) [facility] Work Phone: evaluation noteNo assessment information available [facility] Work Phone: evaluation note* Diagnosis Onset Date Resolution Status Exercise counseling acute Severe obesity (BMI >= 40) delilah kevin [facility] Work Phone: evaluation note* Diagnosis Body mass index (BMI) of 50-59.9 in adult (HCC)- Primary Body Mass Index 50.0-59.9, adult Angel's thyroiditis Chronic lymphocytic thyroiditis High blood cholesterol Pure hypercholesterolemia [facility] Diagnosis NO SHOW- Primary [facility]* Diagnosis Obesity, Class III, BMI 40-49.9 (morbid obesity) ([facility])- Primary Morbid obesity Dietary counseling Dietary surveillance and counseling [facility] Diagnosis Vitamin D deficiency- Primary Unspecified vitamin D deficiency [facility] Diagnosis 25 weeks gestation of Second trimester state, incidental Diabetes mellitus screening Screening for diabetes mellitus size inconsistent with dates H/O premature delivery [facility] Encounter for follow-up ultrasound of anatomy- Primary History of pre-eclampsia in prior , currently with other poor obstetric history History of delivery, currently with history of pre-term labor Obesity affecting in second trimester, unspecified obesity type [facility] Diagnosis Third trimester state, incidental 29 weeks gestation of documented in this encounter [facility]* Diagnosis Third trimester state, incidental 31 weeks gestation of H/O premature delivery documented in this encounter [facility]* Diagnosis 33 weeks gestation of Third trimester state, incidental H/O premature delivery Thyroid disease (CMS/HCC) Unspecified disorder of thyroid H/O pre-eclampsia in prior , currently documented in this encounter [facility] HealthcareHistory general Narrative - Reported* Type Description Date Surgical History adnoidectomy Surgical History gall bladder Surgical History L Fallopian tube removed Hospitalization History See Above [facility] Other Hospital Discharge instructions Additional Instructions You may take gibs-euy-mlpbkve cough and cold medication as needed You may take arer-vzc-mqgkmhz Tylenol and/or ibuprofen as needed Increase oral fluids Follow-up with family doctor as needed Return to the ER for any acute difficulty breathing high fever vomiting or any [facility] Work Phone: Hospital Discharge instructions Additional Instructions Nothing into vagina until seen by INSURANCE CLAIMS REPRESENTATIVE May take Tylenol for discomfort Increase oral fluids Follow-up with INSURANCE CLAIMS REPRESENTATIVE Return to the ER for heavy bleeding greater than a pad an hour feeling dizzy lightheaded or any other [facility] Work Phone: Hospital Discharge instructions Additional Instructions Follow-up with your OB in the next week.[facility] Work Phone: InstructionsNot on filedocumented in this encounter [facility] (n[facility])* Diagnostic Procedure Only (Routine) - Pending Review Specialty Diagnoses / Procedures Referred By Wendy campos Referred To Contact US IMAGING Diagnoses Body mass index (BMI) of 50-59.9 in adult (HCC) Procedures US ABD RIGHT UPPER QUADRANT US ABDOMINAL REAL TIME W/IMAGE LIMITED Tonya Senior, PATROL DEPUTY SHERIFF.ELECTRONIC ENGINEERING DRAFTSPERSON [address] [place] [address] [facility] [address] Referral ID Status Reason Start Date Expiration Date Visits Requested Visits Authorized [id number] Pending Review Auto-Generat ed Referral 08/20/2023 09/18/2024 1 1 * Outpatient Procedure (Routine) - Pending Review Specialty Diagnoses / Procedures Referred By Contac t Referred To [facility] Diagnoses Body mass index (BMI) of 50-59.9 in adult (HCC) Procedures ECG COMPLETE ECG ROUTINE ECG W/LEAST 12 LDS W/I&R Tonya Senior APRN.ELECTRONIC ENGINEERING DRAFTSPERSON [address] [place] [address] [facility] [address] [place] [address] Referral ID Status Reason Start Date Expiration Date Visits Requested Visits Authorized [id number] Pending Review Auto-Generat ed Referral 08/20/2023 08/19/2024 1 1 [facility] Summary Purpose Family History Mother Name Dates [...] content) DATE CREATED AUTHOR 10/31/2017 [place] [facility] ical Center DATE CREATED AUTHOR AUTHOR'S ORGANIZ ATION 04/23/2020 [facility] DATE CREATED AUTHOR AUTHOR'S ORGANIZ ATION 08/08/2020 [employer] DATE CREATED AUTHOR AUTHOR'S ORGANIZ ATION 08/22/2020 [facility] DATE CREATED AUTHOR AUTHOR'S ORGANIZ ATION 06/11/2022 [facility] DATE CREATED AUTHOR AUTHOR'S ORGANIZ ATION 09/06/2023 [facility] DATE CREATED AUTHOR AUTHOR'S ORGANIZ ATION 10/03/2023 [facility] DATE CREATED AUTHOR AUTHOR'S ORGANIZ ATION 10/18/2023 [facility] DATE CREATED AUTHOR AUTHOR'S ORGANIZ ATION 01/20/2024 [facility] DATE CREATED AUTHOR AUTHOR'S ORGANIZ ATION 03/19/2024 [facility] DATE CREATED AUTHOR AUTHOR'S ORGANIZ ATION 04/02/2024 [facility] DATE CREATED AUTHOR AUTHOR'S ORGANIZ ATION 04/25/2024 [facility] EPIC Care Teams (unrecognized sec tion and content) Team Status: Inactive Member Role Status Dates Services Family [facility] Primary Care Provider Active Ck To PA-C Emergency Provider Active Team Status: Active Member Role Status Dates Services Family Health Primary Care Provider Active Team Status: Inactive Member Role Status Dates Services Family [facility] Primary Care Provider Active ONIEL Mcmillan Emergency Provider Active Team Status: Inactive Member Role Status Dates Nicholas Michaels DO Attending Provider Active St art: June 13, 2023 End: June 13, 2023 Team Status: Active Member Role Status Dates Services Family [facility] Primary Care Provider Active Start: [...] Inactive Member Role Status Dates [facility] Primary Care Provider Active Start: October 06, 2023 End: October 06, 2023 ALFONSO Mcmillan- Emergency Provider Active Start: October 06, 2023 End: October 06, 2023 Team Status: Inactive Member Role Status Dates [facility] Primary Care Provider Active Start: February 26, 2024 End: February 26, 2024 Ck To PA-C Emergency Provider Active Start: February 26, 2024 End: February 26, 2024 Team Status: Inactive Member Role Status Dates [facility] Primary Care Provider Active Start: March 05, [...] or prosecute any alcohol or drug abuse patient.[facility] the event this information is protected by the Federal Confidentiality of Alcohol and Drug Abuse Patient Records regulations: The Federal rules restrict any use of the information to criminally investigate or prosecute any alcohol or drug abuse patient.[facility] the event this information is protected by the Federal Confidentiality of Alcohol and Drug Abuse Patient Records regulations: The Federal rules restrict any use of the information to criminally investigate or prosecute any alcohol or drug abuse patient.[facility] HospitalIn the event this information is protected by the Federal Confidentiality of Alcohol and Drug Abuse Patient Records regulations: The Federal rules restrict any use of the information to criminally investigate or prosecute any alcohol or drug abuse patient.[facility] HospitalIn the event this information is protected [...] or prosecute any alcohol or drug abuse patient.[facility] FOR RECORDS PERTAINING TO PATIENTS WHO [...] BE BASED ON THE PRIMARY CLINICAL RECORDS. [facility] [employer] [facility]. provides no warranty or guarantee of the accuracy or completeness of information in this document.
[2024-04-30 15:38] VITALS: BP 124/76; PULSE 93
== END 2024-04-30 16:30 | disposition home or self-care (01) ==
LOC: FBCO 05:18 → FBC 15:04
PROVIDERS: Visit Provider Obstetrics & Gynecology
DX: O26.893 Other specified pregnancy related conditions, third trimester (principal); Z87.51 Personal history of pre-term labor; Z3A.34 34 weeks gestation of pregnancy
CPT/HCPCS: 76818

== ENCOUNTER 2024-05-03 15:44 | Outpatient (OUT) | payer MEDICAID, SELFPAY ==
[2024-05-03 16:39] LABS: Thyroid Stimulating Hormone 2.422 uIU/mL (0.358-3.740)
== END 2024-05-03 15:45 | disposition home or self-care (01) ==
LOC: LAB 15:47
PROVIDERS: Visit Provider Obstetrics & Gynecology
DX: E07.9 Disorder of thyroid, unspecified (principal)
CPT/HCPCS: 36415; 84443

== ENCOUNTER 2024-05-04 06:25 | Outpatient (OUT) | payer MEDICAID, SELFPAY ==
--- OUTSIDE RECORDS SUMMARY | 2024-05-04 06:28 | XMS_ITS | CCD ---
Author Organization [facility] Care Team Providers Care Testing Projects Administrator Name Role Phone Agustin Patton Unavailable Unavailable Agustin Patton Unavailable Unavailable Bayron Mccarty Unavailable Unavailable Unavailable Unavailable Unavailable Unavailable Unavailable Unavailable [facility] Primary Care Provider DEMETRIUS To Emergency Provider DR TACHO MENENDEZ Attending Unavailable DR TACHO MENENDEZ Consulting Unavailable DR TACHO MENENDEZ Admitting Unavailable [facility] Primary Care Provider [phone]( [phone] Anabella [facility] Marychuy E Emergency Provider Nicholas Michaels Unavailable [facility] Services Primary Care Provider DO Nicholas Michaels Attending Provider [phone] Unavailable Primary Care Provider Unavailabl e Unavailable Primary Care Provider Unavailabl e LATONIA GREENE Attending Unavailable TONYA SENIOR Attending Unavailable [facility] Primary Care Provider Anabella [facility] Marychuy E Emergency Provider 1( [phone] LATONIA GREENE Referring Unavailable LATONIA GREENE Attending Unavailable ANNA ORTIZ Attending Unavailable TONYA SENIOR Referring Unavailable TONYA SENIOR Referring Unavailable TACHO MENENDEZ Referring Unavailable MAKEDA GROSS Attending Unavailable TACHO MENENDEZ Referring Unavailable Unavailable Primary Care Provider Unavailabl e [facility] Primary Care Provider DEMETRIUS To Emergency Provider Unavailable Primary Care Provider Unavailabl DO Devika Christie Emergency Provider Ck To Attending Unavailable Ck To Admitting Unavailable [facility] Primary Care Unavaila Marychuy Rey Attending Unavailable Marychuy Kyle Admitting Unavailable [facility] Primary Care Unavaila Nicholas Willams Attending Unavailable Nicholas Michaels Admitting Unavailable [facility] Primary Care Unavaila ble [facility] Primary Care Unavaila Devika Hillman Attending Unavailable Devika De La Garza Admitting Unavailable SHON, TACHO Mckenzie Referring Unavailable SHON, TACHO R Referring Unavailable SHON, TACHO R Referring Unavailable SHON, TACHO Attending Unavailable MENA ANN Attending Unavailable SHON, TACHO Attending Unavailable MARISSA, MENA Attending Unavailable SHON, TACHO Attending Unavailable MARISSAMENA Attending Unavailable SHON, TACHO Attending Unavailable Medications [...] mg/ml oral solution (2 sources) Phenothiazine, Uncompetitive M-kwqyez-Z-aspartate Receptor Antagonist, Sigma-1 Agonist Start: 02-26-2024 take [...] 7:27pm magnesium oxide 400 mg oral tablet (20 sources) Start: 10-30-2023 End: 10-29-2024 take 1 tablet by mouth once daily magnesium oxide (Mag-Ox) 400 MG tablet Indications: headache in first trimester Take 1 tablet (400 mg) by mouth Daily 30 tablet 11 10/30/2023 10/29/2024 Active [place] (No Known Home Meds) (3 sources) Start: 10-06-2023 [place] (No Kn own Home Meds) Active October 06, 2023 12:00am Start: 06-18-2022 [place] (No Kn own Home Meds) Active June [...] w/FA-DHA ( Gummies) 0.18-25 MG chewable tablet (20 sources) Start: 11-26-19 End: 11-26-19 25 MV [...] oral solution (7 sources) alpha-Adrenergic Agonist, Uncompetitive C-xrffjq-A-asparta te Receptor Antagonist, Sigma-1 Agonist Start: 2 [...] 26, 2019 12:58pm July 28, 2020 7:27pm Lscxttsz-Wvq-Uw-Fa () 1 mg Tablet (7 sources) Start: 12-31-2020 End: 07-04-2021 take 1 tablet by mouth once Jdwhmuce-Vuh-Nv-Fa () 1 mg Tablet Discontinued TAB PO December 30, 2020 11:00pm July 04, 2021 9:48am Start: 12-31-2020 End: 07-04-2021 take 1 tablet by mouth once Ciguzach-Ppk-Ks-F a () 1 mg Tablet Discontinued TAB PO December 31, 2020 12:00am July 04, 2021 10:48am progesterone 100 mg oral capsule (9 sources) Progesterone Start: 07-28-2020 End: 12-31-2020 Progesterone Micronized Discontinued 100 MG VAGINAL Twice daily July 28, 2020 12:00am December 31, 2020 9:55am Start: 06-19-2020 take 1 capsule by mo [facility] twice daily Progesterone Micronized 100 MG Oral Capsule TAKE 1 CAPSULE Twice daily insert capsules vaginally Quantity: 30 Refills: 3 Bayron Mccarty MD Start : 19-Jun-2020 Active sennosides, half-way 8.6 mg oral tablet (1 source) take 4 tablets by [facility] every twenty-four hours Senna 8.6 MG [...] Hypertension complicating ; childbirth and the puerperium (3 sources) Gestational [-induced] hypertension without significant proteinuria, unspecified trimester; Translations: [Gestational [-induced] hypertension without significant proteinuria, third trimester] Onset: 01-19-2024 Episodic Immunizations and screening [...] Onset: 01-19-2024 03-01-2024 Chronic Other complications of (1 source) Obesity complicating , third trimester; Translations: [Obesity complicating , third trimester] Onset: 04-27-2024 Chronic Other complications of (7 sources) Abdominal [...] 01-19-2024 Chronic Other and delivery including normal (19 sources) Intrauterine ; Translations: [Encounter for supervision [...] [33 weeks gestation of ] 04-22-2024 Episodic Residual codes; unclassified (2 sources) Gestation period, 35 weeks; Translations: [35 weeks gestation of ] 05-03-2024 Episodic Sprains and strains (7 sources) Low [...] unspecified, unspecified trimester] Onset: 10-06-2023 08-27-2020 Episodic Other complications of (2 sources) Supervision of with other poor reproductive or obstetric history, unspecified trimester; Translations: [Supervision of with other poor reproductive or obstetric history, unspecified trimester] Onset: 01-19-2024 Episodic Unclassified (15 sources) Patient encounter status; Translations: [Infertility counseling] 03-01-2024 Unclassified (3 sources) History finding; Translations: [No pertinent past medical history] NEGATED: Highlighted row has not occurred!Residual codes; unclassified (18 sources) Disease Episodic Results Test Name Value Interpretation Reference Range Facility ALL THYROID STIM HORMONEon 1 07-04-2023 TSH Qn 2.422 m[IU]/L [facility] Urinalysis macro (dipstick) panel (U)on 05-03-2024 Bilirubin, UA Negative Negative - 4(70) +++ mg/dL [facility] Blood, UA Negative Negative - 50 Bradley/mcL [facility] Clarity, UA Clear [facility] Color, UA Yellow [facility] Glucose, UA Negative Negative - 1999(110) ++++ mg/dL [facility] Interpretation and review of laboratory results Abnormal [facility] Ketones, UA Negative Negative - 160(16) ++++ mg/dL [facility] Leukocytes, UA Positive Negative - 500+++ Gabby/mcL [facility] Comment on above: small Nitrite, UA Negative Negative - Positive [facility] pH, UA 6 5 - [address] [facility] Protein, UA Negative Negative - 1999(20) ++++ mg/dL [facility] Spec Grav, UA 1.03 1 - 1.[address] [facility] Urobilinogen, UA 0.2 0.2 - 12 mg/dL [facility] Urinalysis macro (dipstick) panel (U)on 04-22-2024 Bilirubin, UA Negative Negative - 4(70) +++ mg/dL [facility] Blood, UA Negative Negative - 50 Bradley/mcL [facility] Clarity, UA Clear [facility] Color, UA Yellow [facility] Glucose, UA Negative Negative - 1999(110) ++++ mg/dL [facility] Interpretation and review of laboratory results Abnormal [facility] Ketones, UA Negative Negative - 160(16) ++++ mg/dL [facility] Leukocytes, UA Trace Negative - 500+++ Gabby/mcL [facility] Nitrite, UA Negative Negative - Positive [facility] pH, UA 6 5 - 9 [facility] Protein, UA Positive Negative - 1999(20) ++++ mg/dL [facility] Comment on above: 30 Spec Grav, UA 1.025 1 - 1.[address] [facility] Urobilinogen, UA 1.0 0.2 - 12 mg/dL [facility] Urinalysis macro (dipstick) panel (U)on 04-06-2024 Bilirubin, UA Negative Negative - 4(70) +++ mg/dL [facility] Blood, UA Negative Negative - 50 Bradley/mcL [facility] Clarity, UA Clear [facility] Color, UA Yellow [facility] Glucose, UA Negative Negative - 1999(110) ++++ mg/dL [facility] Interpretation and review of laboratory results Abnormal [facility] Ketones, UA Negative Negative - 160(16) ++++ mg/dL [facility] Leukocytes, UA Positive Negative - 500+++ Gabby/mcL [facility] Comment on above: small Nitrite, UA Negative Negative - Positive [facility] pH, UA 7 5 - [address] [facility] Protein, UA Negative Negative - 1999(20) ++++ mg/dL [facility] Spec Grav, UA 1.02 1 - 1.[address] [facility] Urobilinogen, UA 0.2 0.2 - 12 mg/dL [facility] Urinalysis macro (dipstick) panel (U)on 03-22-2024 Bilirubin, UA Positive Negative - 4(70) +++ mg/dL [facility] Blood, UA Negative Negative - 50 Bradley/mcL [facility] Clarity, UA Clear [facility] Color, UA Yellow [facility] Glucose, UA Negative Negative - 1999(110) ++++ mg/dL [facility] Interpretation and review of laboratory results Normal [facility] Ketones, UA Positive Negative - 160(16) ++++ mg/dL [facility] Leukocytes, UA Positive Negative - 500+++ Gabby/mcL [facility] Nitrite, UA Negative Negative - Positive [facility] pH, UA 7 5 - 9 [facility] Protein, UA Positive Negative - 1999(20) ++++ mg/dL [facility] Spec Grav, UA 1.025 1 - 1.[address] [facility] Urobilinogen, UA 1.0 0.2 - 12 mg/dL [facility] ALL CBC WITH AUTO DIFFon BASOPHILS ABSOLUTE AUTO [address] [facility] Basophils/100 WBC (Bld) 0.5 % 0.2 - 2.0 % [facility] Eosinophils/100 WBC (Bld) 2.4 % 0.9 - 7.0 % [facility] Erythrocyte distribution width (RBC) [Ratio] 13.2 % 11.0 - 15.0 % [facility] Hematocrit (Bld) [Volume fraction] 33.2 % Low 36.0 - 48.0 % [facility] Hemoglobin (Bld) [Mass/Vol] 11.1 g/dL Low 12.0 - 16.0 g/dL [facility] IMMATURE GRANULOCYTES ABS AUTO 0.[address] [facility] Immature granulocytes/100 WBC (Bld) 0.3 % 0.0 - 0.5 % [facility] Interpretation and review of laboratory results Abnormal [facility] LYMPHOCYTES ABSOLUTE AUTO 2.[address] [facility] Lymphocytes/100 WBC (Bld) 32.5 % 20.5 - 60.0 % [facility] MCH (RBC) [Entitic mass] 30.5 pg 26.7 - 34.[address] [facility] MCHC (RBC) [Mass/Vol] 33.4 g/dL 29.9 - 35.2 g/dL [facility] MCV (RBC) [Entitic vol] 91.2 fL 81.0 - 99.[address] [facility] MONOCYTES ABSOLUTE AUTO 0.[address] [facility] Monocytes/100 WBC (Bld) 4.6 % 1.7 - 12.0 % [facility] NEUTROPHILS ABSOLUTE AUTO 3.[address] [facility] Neutrophils/100 WBC (Bld) 59.7 % 43.0 - 75.0 % [facility] Platelet mean volume (Bld) [Entitic vol] 9.3 fL Low 9.5 - 13.[address] [facility] EO # 0.[address] [facility] PLT [address] [facility] TB RBC 3.[address] [facility] TB WBC 6.[address] [facility] BioFire Not Detectedon 03-05 BioFire Not Detected Not detected Normal Not Detecte Andres angulo [facility] Comment on above: Result Comment: This is a duplicate RP2.1 COVID (PCR) result to be used for statistical tracking purpose only. PERFORMED BY: [place] [address] [employer] LION STANLEY M.D. Performed By: #### B IOFIRECOVNOTDE, QS, RESP PANEL UPP. #### [address] COVID-19 Detected/Not Detect edOrdered By: Devika De La Garza on 03-05-2024 SARS-CoV-2 (COVID-19) RNA YANET+non-probe Ql (Nph) Not detected Not Detecte [facility] Comment on above: This is a duplicate RP2.1 COVID (PCR) result to be used for statistical tracking purpose only. ECG 12 lead ECGon 03-05-2024 ECG 12 lead ECG [facility] [place] [address] [place] [address] Electrocardiograph Report Signed Patient: Jaleesa Arrieta MR#: [id number] [birth year] : 1990 Acct:[id number] Age/Sex: 33 / F ADM Date: 03/05/24 [...] Confirmed by DEVIKA DE LA GARZA DO ([id number]) on 03/06/2024 1:44:25 AM Referred By: Electronically Signed By: DEVIKA DE LA GARZA DO Transcribed By: MUS Signed By Devika De La Garza DO 03/06 0144 Normal [facility] Quick Strepon 03-05-2024 Quick Strep Streptococcus pyogen es Ag [Presence] in Throat by Rapid immunoassay Negative for Group A Strep Antigen Note 1 NOTE 2 Results are those of a screening test. NOTE 3 If clinically indicated please order a culture. NOTE 4 NOTE 5 Reference range = Negative PERFORMED BY: [place] [address] [employer] LION STANLEY M.D. Normal [facility] Comment on above: Performed By: #### B IOFIRECOVNOTDE, QS, RESP PANEL UPP. #### [address] Respiratory (Upper) Panel, P CRon 03-05-2024 [...] A H3 Blank Space ------ PERFORMED BY: [place] [address] PATH[employer] LION STANLEY M.D. Normal [facility] Comment on above: Performed By: #### B IOFIRECOVNOTDE, QS, RESP PANEL UPP. #### [address] Respiratory pathogens DNA an d RNA panel - Nasopharynx by YANET with non-probe detectionOrdered By: Devika De La Garza on 03-05-2024 Respiratory pathogens DNA and RNA panel YANET+non-probe (Nph) [facility] Streptococcus pyogenes antig en detectionOrdered By: Devika De La Garza on 03-05-2024 S. pyogenes Ag Ql (Unsp spec) [facility] XR chest 1V portableon 03-05 XR chest 1V portable [facility] [place] [address] [place] [address] XRay Report Signed Patient: Jaleesa Arrieta MR#: [id number] [birth year] : 1990 Acct:[id number] Age/Sex: 33 / F ADM Date: 03/05/24 Loc: ER Room: Type: [facility] Attending Dr: Copies to: Devika De La [...] Priscilla Cunningham M.D.03/05/2024 9:34 PM Dictation Location: [place] [address] Transcribed By: [facility] 03/05/242133 Dictated By: Priscilla Cunningham MD 03/05/242130 Signed By: 03/05/242133 Normal [facility] Quick Strepon 02-26-2024 Quick Strep Streptococcus pyogen es Ag [Presence] in Throat by Rapid immunoassay Negative for Group A Strep Antigen Note 1 NOTE 2 Results are those of a screening test. NOTE 3 If clinically indicated please order a culture. NOTE 4 NOTE 5 Reference range = Negative PERFORMED BY: [place] [address] [employer] LION STANLEY M.D. Normal [facility] Comment on above: Performed By: #### Q S #### [address] Streptococcus pyogenes antig en detectionOrdered By: Ck To on 02-26-2024 S. pyogenes Ag Ql (Unsp spec) [facility] Urinalysis macro (dipstick) panel (U)on 02-23-2024 Bilirubin, UA Negative Negative - 4(70) +++ mg/dL [facility] Blood, UA Negative Negative - 50 Bradley/mcL [facility] Clarity, UA Clear [facility] Color, UA Yellow [facility] Glucose, UA Negative Negative - 1999(110) ++++ mg/dL [facility] Interpretation and review of laboratory results Abnormal [facility] Ketones, UA Negative Negative - 160(16) ++++ mg/dL [facility] Leukocytes, UA Positive Negative - 500+++ Gabby/mcL [facility] Comment on above: small Nitrite, UA Negative Negative - Positive [facility] pH, UA 7 5 - [address] [facility] Protein, UA Negative Negative - 1999(20) ++++ mg/dL [facility] Spec Grav, UA 1.02 1 - 1.[address] [facility] Urobilinogen, UA 0.2 0.2 - 12 mg/dL [facility] ALL THYROID STIM HORMONEon 0 01-26-2024 TSH Qn 2.645 m[IU]/L [facility] Urinalysis macro (dipstick) panel (U)on 01-20-2024 Bilirubin, UA Negative Negative - 4(70) +++ mg/dL [facility] Blood, UA Negative Negative - 50 Bradley/mcL [facility] Clarity, UA Clear [facility] Color, UA Yellow [facility] Glucose, UA Negative Negative - 1999(110) ++++ mg/dL [facility] Interpretation and review of laboratory results Abnormal [facility] Ketones, UA Negative Negative - 160(16) ++++ mg/dL [facility] Leukocytes, UA Trace Negative - 500+++ Gabby/mcL [facility] Nitrite, UA Negative Negative - Positive [facility] pH, UA 6.5 5 - [address] [facility] Protein, UA Negative Negative - 1999(20) ++++ mg/dL [facility] Spec Grav, UA 1.020 1 - 1.[address] [facility] Urobilinogen, UA 0.2 0.2 - 12 mg/dL [facility] Alanine aminotransferase [En zymatic activity/volume] in Serum or PlasmaOrdered By: Marychuy Kyle on 10-06-2023 ALT [Catalytic activity/Vol] 13 U/L Normal 7-52 [facility] Comment on above: Performed By: #### C BC, CMP, HCGQNT #### [facility] [address] [place] [address] Albumin [Mass/volume] in Ser um or Plasma by Bromocresol green (BCG) dye binding methoOrdered By: Marychuy Jeronimoimore on 10-06-2023 Albumin BCG dye [Mass/Vol] 3.8 g/dL 3.5-5.7 [facility] Alkaline phosphatase [Enzyma tic activity/volume] in Serum or PlasmaOrdered By: Marychuy Wangore on 10-06-2023 ALP [Catalytic activity/Vol] 61 U/L Normal 34-104 [facility] Comment on above: Performed By: #### C BC, CMP, HCGQNT #### [facility] [address] [place] [address] [place] Aspartate aminotransferase [ Enzymatic activity/volume] in Serum or PlasmaOrdered By: Marychuy Bullimore on 10-06-2023 AST [Catalytic activity/Vol] 13 U/L Normal 13-39 [facility] Comment on above: Performed By: #### C BC, CMP, HCGQNT #### [address] Automated basophil %Ordered By: Marychuy Bullimore on 10-06-2023 Basophils/100 WBC (Bld) 0.6 % Normal . [facility] Comment on above: Performed By: #### C BC, CMP, HCGQNT #### [address] Automated basophil countOrde red By: Marychuy Bullimore on 10-06-2023 Basophils (Bld) [#/Vol] 0.0 10*3/uL Normal 0.0-0.2 [facility] Comment on above: Result Comment: PERF ORMED BY: [place] [address] [employer] LION STANLEY M.D. Performed By: #### C BC, CMP, HCGQNT #### [address] Automated blood monocyte cou ntOrdered By: Marychuy Bullimore on 10-06-2023 Monocytes (Bld) [#/Vol] 0.5 10*3/uL Normal 0.0-0.8 [facility] Comment on above: Performed By: #### C BC, CMP, HCGQNT #### [address] Automated eosinophil %Ordere d By: Marychuy Bullimore on 10-06-2023 Eosinophils/100 WBC (Bld) 0.7 % Normal . [facility] Comment on above: Performed By: #### C BC, CMP, HCGQNT #### [address] Automated eosinophil countOr dered By: Marychuy Bullimore on 10-06-2023 Eosinophils (Bld) [#/Vol] 0.1 10*3/uL Normal 0.0-0.45 [facility] Comment on above: Performed By: #### C BC, CMP, HCGQNT #### [facility] [address] Automated epithelial cells c ount in urine sediment (number/area)Ordered By: Marychuy Jeronimoimore on 10-06-2023 Epithelial cells Auto (Urine sed) [#/Area] 3-4 [HPF] 0-2 [facility] Automated monocyte %Ordered By: Marychuy Bullimore on 10-06-2023 Monocytes/100 WBC (Bld) 6.7 % Normal . [facility] Comment on above: Performed By: #### C BC, CMP, HCGQNT #### [address] Automated neutrophil %Ordere d By: Marychuy Phaniimore on 10-06-2023 Neutrophils/100 WBC (Bld) 54.4 % Normal . [facility] Comment on above: Performed By: #### C BC, CMP, HCGQNT #### [facility] [address] [place] [address] Bacteria [Presence] in Urine by AutomatedOrdered By: Marychuy Kyle on 10-06-2023 Bacteria Auto Ql (U) None seen [HPF] None Seen [facility] Bilirubin Test strip Ql (U)O rdered By: Marychuy Bullimore on 10-06-2023 Bilirubin Ql (U) Negative Negative [facility] Bilirubin.total [Mass/volume ] in Serum or PlasmaOrdered By: Marychuy Bullimore on 10-06-2023 Bilirubin [Mass/Vol] 0.2 mg/dL Low 0.3-1.0 [facility] Comment on above: Performed By: #### C BC, CMP, HCGQNT #### [facility] [address] [place] [address] Calcium [Mass/volume] in Ser um or PlasmaOrdered By: Marychuy Bullimore on 10-06-2023 Calcium [Mass/Vol] 9.4 mg/dL Normal 8.6-10.3 [facility] Comment on above: Performed By: #### C BC, CMP, HCGQNT #### [facility] [address] Carbon dioxide, total [Moles /volume] in Serum or PlasmaOrdered By: Marychuy Kyle on 10-06-2023 CO2 [Moles/Vol] 25.5 mmol/L Normal 21.0-31.0 [facility] Comment on above: Performed By: #### C BC, CMP, HCGQNT #### [facility] [address] Chloride [Moles/volume] in S sondra or PlasmaOrdered By: Marychuy Bullimore on 10-06-2023 Chloride [Moles/Vol] 105 mmol/L Normal 98-107 [facility] Comment on above: Performed By: #### C BC, CMP, HCGQNT #### [facility] [address] Choriogonadotropin.beta subu nit [Units/volume] in Serum or PlasmaOrdered By: Marychuy Wangore on 10-06-2023 HCG.beta subunit Qn 2799.00 m[IU]/mL [facility] Comment on above: Approximate Approxim ate hCG Gestational Age Range (mIU/ml) (weeks)0.2-1 5-50 1-2 50-500 2-3 100-5,000 3-4 500-10,000 4-5 1,000-50,000 5-6 10,000-100,000 6-8 15,000-200,000 8-12 10,000-100,000 Color of Urine by AutoOrdere d By: Marychuy Kyle on 10-06-2023 Color (U) Yellow Normal Yellow [facility] Comment on above: Order Comment: NEED MORE SPECIMEN Name Collection Type:: Clean-Voided Midstream Performed By: #### A DDONUAPLUS #### [address] Complete Blood Count Auto Di ffon 10-06-2023 Mean Corpuscular HGB Conc 34.4 g/dL Normal 32.0-35.0 [facility] Comment on above: Performed By: #### C BC, CMP, HCGQNT #### [address] Monocytes/100 WBC (Bld) 17.37 % Normal 0.00-20.00 [facility] Comment on above: Performed By: #### C BC, CMP, HCGQNT #### [address] NRBC% 0.2 /100{WBC} Normal 0-0.5 [facility] Comment on above: Performed By: #### C BC, CMP, HCGQNT #### [address] Comprehensive Metabolic Pane panchito 10-06-2023 Albumin [Mass/Vol] 3.8 g/dL Normal 3.5-5.7 [facility] Comment on above: Performed By: #### C BC, CMP, HCGQNT #### [address] Creatinine Clr Calc Pharmacy 180.48 Normal [facility] Comment on above: Performed By: #### C BC, CMP, HCGQNT #### [address] GFR/1.73 sq M.predicted MDRD (S/P/Bld) [Vol rate/Area] mL/min/{1.73_m2} Normal [facility] Comment on above: Performed By: #### C BC, CMP, HCGQNT #### [address] Creatinine [Mass/volume] in Serum or PlasmaOrdered By: Marychuy Kyel on 10-06-2023 Creatinine [Mass/Vol] 0.63 mg/dL Normal 0.60-1.20 [facility] Comment on above: Performed By: #### C BC, CMP, HCGQNT #### [place] [address] [place] Dipstick and Microscopicon 0 10-06-2023 Appearance (U) Clear Normal Clear [facility] Comment on above: Order Comment: NEED MORE SPECIMEN Name Collection Type:: Clean-Voided Midstream Performed By: #### A DDONUAPLUS #### [address] Bacteria,Urine None Seen Normal None Seen [facility] Comment on above: Order Comment: NEED MORE SPECIMEN Name Collection Type:: Clean-Voided Midstream Performed By: #### A DDONUAPLUS #### [address] Bilirubin,Urine Negative Normal Negative [facility] Comment on above: Order Comment: NEED MORE SPECIMEN Name Collection Type:: Clean-Voided Midstream Performed By: #### A DDONUAPLUS #### [address] Glucose Ql (U) Normal Normal Normal [facility] Comment on above: Order Comment: NEED MORE SPECIMEN Name Collection Type:: Clean-Voided Midstream Performed By: #### A DDONUAPLUS #### [address] Hyaline Casts,Urine 0-8 Normal 0-8 [facility] Comment on above: Order Comment: NEED MORE SPECIMEN Name Collection Type:: Clean-Voided Midstream Result Comment: PERF ORMED BY: [place] [address] [employer] LION STANLEY M.D. Performed By: #### A DDONUAPLUS #### [address] Ketones Ql (U) Negative Normal Negative [facility] Comment on above: Order Comment: NEED MORE SPECIMEN Name Collection Type:: Clean-Voided Midstream Performed By: #### A DDONUAPLUS #### [address] Leukocyte esterase Test strip Ql (U) 1+ High Negative [facility] Comment on above: Order Comment: NEED MORE SPECIMEN Name Collection Type:: Clean-Voided Midstream Performed By: #### A DDONUAPLUS #### [place] [address] [place] Nitrite,Urine Negative Normal Negative [facility] Comment on above: Order Comment: NEED MORE SPECIMEN Name Collection Type:: Clean-Voided Midstream Performed By: #### A DDONUAPLUS #### [address] Occult Blood,Urine Negative Normal Negative [facility] Comment on above: Order Comment: NEED MORE SPECIMEN Name Collection Type:: Clean-Voided Midstream Result Comment: PERF ORMED BY: [place] [address] PATHOLOGIST [employer]GRAM TE[employer]ER LION STANLEY M.D. Performed By: #### A DDONUAPLUS #### [address] Protein,Urine Negative Normal Negative [facility] Comment on above: Order Comment: NEED MORE SPECIMEN Name Collection Type:: Clean-Voided Midstream Performed By: #### A DDONUAPLUS #### [place] [address] [place] RBC LM.HPF (Urine sed) [#/Area] 0 /[HPF] Normal 0-4 [facility] Comment on above: Order Comment: NEED MORE SPECIMEN Name Collection Type:: Clean-Voided Midstream Performed By: #### A DDONUAPLUS #### [address] Specificy [place],Urine 1.017 Normal 1.001-1.030 [facility] Comment on above: Order Comment: NEED MORE SPECIMEN Name Collection Type:: Clean-Voided Midstream Performed By: #### A DDONUAPLUS #### [place] [address] [place] Squamous Epithelial Cell,Urine 3-4 High 0-2 [facility] Comment on above: Order Comment: NEED MORE SPECIMEN Name Collection Type:: Clean-Voided Midstream Performed By: #### A DDONUAPLUS #### [place] [address] [place] Urobilinogen,Urine Normal Normal Normal [facility] Comment on above: Order Comment: NEED MORE SPECIMEN Name Collection Type:: Clean-Voided Midstream Performed By: #### A DDONUAPLUS #### [address] WBC,Urine 3-4 Normal 0-4 [facility] Comment on above: Order Comment: NEED MORE SPECIMEN Name Collection Type:: Clean-Voided Midstream Performed By: #### A DDONUAPLUS #### [address] Erythrocyte distribution wid th [Ratio] by Automated countOrdered By: Marychuy Wangore on 10-06-2023 Erythrocyte distribution width (RBC) [Ratio] 13.4 % Normal 11.9-15.3 [facility] Comment on above: Performed By: #### C BC, CMP, HCGQNT #### [address] Erythrocytes [#/area] in Uri ne sediment by Automated countOrdered By: Marychuy Bullimore on 10-06-2023 RBC Auto (Urine sed) [#/Area] 0-1 [HPF] 0-4 [facility] Erythrocytes [#/volume] in B lood by Automated countOrdered By: Marychuy Bullimore on 10-06-2023 RBC (Bld) [#/Vol] 4.08 10*6/uL Normal 3.60-5.00 [facility] Comment on above: Performed By: #### C BC, CMP, HCGQNT #### [address] Glucose [Mass/volume] in Ser um or PlasmaOrdered By: Marychuy Bullimore on 10-06-2023 Glucose [Mass/Vol] 100 mg/dL Normal 70-100 [facility] Comment on above: ADA recommended refe rence rangeRandom Glucose Reference Range is dependent on time and content of last meal. Glucose of more than 200 mg/dL in a nonstressed, ambulatory subject supports the diagnosis of Diabetes Mellitus. Result Comment: [place] Glucose Reference Range is dependent on time and content of last meal. Glucose of more than 200 mg/dL in a nonstressed, ambulatory subject supports the diagnosis of Diabetes Mellitus. ADA recommended reference range Performed By: #### C BC, CMP, HCGQNT #### [address] HCG,Quantitativeon HCG,Quantitative 2799.00 m[iU]/mL Normal Th [facility] Comment on above: Result Comment: Appr oximate Approximate hCG Gestational Age Range (mIU/ml) (weeks) 0.2-1 5-50 1-2 50-500 2-3 100-5,000 3-4 500-10,000 4-5 1,000-50,000 5-6 10,000-100,000 6-8 15,000-200,000 8-12 10,000-100,000 PERFORMED BY: [place] [address] PATHOLOGIST [employer] TE[employer]ER LION STANLEY M.D. Performed By: #### C BC, CMP, HCGQNT #### [address] Hematocrit [Volume Fraction] of Blood by Automated countOrdered By: Marychuy Kyle on 10-06-2023 Hematocrit (Bld) [Volume fraction] 36.7 % Normal 34.0-46.4 [facility] Comment on above: Performed By: #### C BC, CMP, HCGQNT #### [address] Hemoglobin [Mass/volume] in BloodOrdered By: Marychuy Kyle on 10-06-2023 Hemoglobin (Bld) [Mass/Vol] 12.6 g/dL Normal 11.8-15.4 [facility] Comment on above: Performed By: #### C BC, CMP, HCGQNT #### [address] Ketones Auto test strip (U) [Mass/Vol]Ordered By: Marychuy Kyle on 10-06-2023 Ketones (U) [Mass/Vol] Negative Negative [facility] - UrinalysisOrder ed By: Marychuy Kyle on 05-27-2024 Hyaline casts LM Ql (Urine sed) 0-8 [LPF] 0-8 [facility] Leukocytes [#/area] in Urine sediment by Automated countOrdered By: Marychuy Kyle on 10-06-2023 WBC Auto (Urine sed) [#/Area] 3-4 [HPF] 0-4 [facility] Leukocytes [#/volume] correc inocencia for nucleated erythrocytes in Blood by Automated counOrdered By: Marychuy Kyle on 10-06-2023 WBC corrected for nucl RBC Auto (Bld) [#/Vol] 7.4 10*3/uL 3.8-11.6 [facility] Leukocytes [#/volume] in Blo od by Automated countOrdered By: Marychuy Kyle on 10-06-2023 WBC (Bld) [#/Vol] 7.4 10*3/uL Normal 3.8-11.6 [facility] Comment on above: Performed By: #### C BC, CMP, HCGQNT #### [facility] [address] [place] [address] [place] Lymphocytes [#/volume] in Bl ood by Automated countOrdered By: Marychuy Kyle on 10-06-2023 Lymphocytes (Bld) [#/Vol] 2.8 10*3/uL Normal 1.00-4.8 [facility] Comment on above: Performed By: #### C BC, CMP, HCGQNT #### [facility] [address] [place] [address] [place] Lymphocytes/100 leukocytes i n Blood by Automated countOrdered By: Marychuy Kyle on 10-06-2023 Lymphocytes/100 WBC (Bld) 37.6 % Normal . [facility] Comment on above: Performed By: #### C BC, CMP, HCGQNT #### [facility] [address] [place] [address] [place] MCH [Entitic mass] by Automa inocencia countOrdered By: Marychuy Kyle on 10-06-2023 MCH (RBC) [Entitic mass] 31.0 pg Normal 24.7-34.3 [facility] Comment on above: Performed By: #### C BC, CMP, HCGQNT #### [facility] [address] MCHC Auto (RBC) [Mass/Vol]Or dered By: Marychuy Wangore on 10-06-2023 MCHC (RBC) [Mass/Vol] 34.4 g/dL 32.0-35.0 [facility] MCV [Entitic volume] by Auto mated countOrdered By: Marychuy Kyle on 10-06-2023 MCV (RBC) [Entitic vol] 90.1 fL Normal 80-100 [facility] Comment on above: Performed By: #### C BC, CMP, HCGQNT #### [facility] [address] [place] [address] Monocyte distribution width [Entitic volume] in Blood by AutomatedOrdered By: Marychuy Kyle on 10-06-2023 Monocyte distribution width Auto (Bld) [Entitic vol] 17.37 % 0.00-20.00 [facility] Neutrophils [#/volume] in Bl ood by Automated countOrdered By: Marychuy Kyle on 10-06-2023 Neutrophils (Bld) [#/Vol] 4.0 10*3/uL Normal 1.8-7.7 [facility] Comment on above: Performed By: #### C BC, CMP, HCGQNT #### [facility] [address] [place] [address] Nitrite Test strip Ql (U)Ord ered By: Marychuy Kyle on 10-06-2023 Nitrite Ql (U) Negative Negative [facility] No Panel InformationOrdered By: Marychuy Klye on 10-06-2023 Estimated GFR (CKD-EPI) > 60.0 mL/Min [facility] Creatinine Clearance (Chem 180.48 [facility] Nucleated erythrocytes [Pres ence] in Blood by Automated countOrdered By: Marychuy Kyle on 10-06-2023 Nucleated RBC Auto Ql (Bld) 0.2 /100{WBC} 0-0.5 [facility] Platelet mean volume [Entiti c volume] in Blood by Automated countOrdered By: Marychuy Kyle on 10-06-2023 Platelet mean volume (Bld) [Entitic vol] 7.5 fL Normal 6.3-10.7 [facility] Comment on above: Performed By: #### C BC, CMP, HCGQNT #### [address] Platelets [#/volume] in Bloo d by Automated countOrdered By: Marychuy Bullimore on 10-06-2023 Platelets (Bld) [#/Vol] 367 10*3/uL Normal 150-450 [facility] Comment on above: Performed By: #### C BC, CMP, HCGQNT #### [address] Potassium [Moles/volume] in Serum or PlasmaOrdered By: Marychuy Bullimore on 10-06-2023 Potassium [Moles/Vol] 4.1 mmol/L Normal 3.5-5.1 [facility] Comment on above: Performed By: #### C BC, CMP, HCGQNT #### [address] Protein Auto test strip (U) [Mass/Vol]Ordered By: Marychuy Bullimore on 10-06-2023 Protein (U) [Mass/Vol] Negative Negative [facility] Protein [Mass/volume] in Ser um or PlasmaOrdered By: Marychuy Bullimore on 10-06-2023 Protein [Mass/Vol] 7.4 g/dL Normal 6.4-8.9 [facility] Comment on above: Performed By: #### C BC, CMP, HCGQNT #### [address] Serum globulin measurement b y calculation (mass/volume)Ordered By: Marychuy Bullimore on 10-06-2023 Globulin (S) [Mass/Vol] 3.6 g/dL Normal [facility] Comment on above: Performed By: #### C BC, CMP, HCGQNT #### [address] Serum or plasma albumin/glob ulin mass ratioOrdered By: Marychuy Bullimore on 10-06-2023 Albumin/Globulin [Mass ratio] 1.1 {ratio} Normal [facility] Comment on above: Performed By: #### C BC, CMP, HCGQNT #### [address] Serum or plasma anion gap de terminationOrdered By: Marychuy Kyle on 10-06-2023 Anion gap [Moles/Vol] 12.6 mmol/L Normal 6.0-15.0 [facility] Comment on above: Performed By: #### C BC, CMP, HCGQNT #### [address] Sodium [Moles/volume] in Ser um or PlasmaOrdered By: Marychuy Bullimore on 10-06-2023 Sodium [Moles/Vol] 139 mmol/L Normal 136-145 [facility] Comment on above: Performed By: #### C BC, CMP, HCGQNT #### [facility] [address] [place] [address] Specific gravity Auto test s trip (U) [Rel density]Ordered By: Marychuy Kyle on 10-06-2023 Specific gravity (U) [Rel density] 1.017 1.001-1.030 [facility] Urea nitrogen [Mass/volume] in Serum or PlasmaOrdered By: Marychuy Kyle on 10-06-2023 Urea nitrogen [Mass/Vol] 7 mg/dL Normal 7-25 [facility] Comment on above: Performed By: #### C BC, CMP, HCGQNT #### [address] Urine clarity by refractomet ry automatedOrdered By: Marychuy Kyle on 10-06-2023 Clarity Refractometry automated (U) Clear Clear [facility] Urine glucose measurement by automated test strip (mass/volume)Ordered By: Marychuy Kyle on 10-06-2023 Glucose Auto test strip (U) [Mass/Vol] Normal mg/dL Normal [facility] Urine hemoglobin detection b y automated test stripOrdered By: Marychuy Kyle on 10-06-2023 Hemoglobin Auto test strip Ql (U) Negative Negative [facility] Urine leukocyte esterase det ection by automated test stripOrdered By: Marychuy Kyle on 10-06-2023 Leukocyte esterase Auto test strip Ql (U) 1+ Negative [facility] Urine pH measurement by auto mated test stripOrdered By: Marychuy Kyle on 10-06-2023 pH (U) 7.0 [pH] Normal 5.0-9.0 [facility] Comment on above: Order Comment: NEED MORE SPECIMEN Name Collection Type:: Clean-Voided Midstream Performed By: #### A DDONUAPLUS #### [facility] [address] Urobilinogen Auto test strip (U) [Mass/Vol]Ordered By: Marychuy Kyle on 10-06-2023 Urobilinogen (U) [Mass/Vol] Normal mg/dL Normal [facility] Basia 09-11-2023 LIZ Telephone (MARTIN) -------- JALEESA ARRIETA ([id number]) 1990 F Date Time Provider Department 09/11/23 [...] Date Reviewed: 08/20/2023 Reviewed by: Tonya Senior APRN.FINANCIAL OFFICER - Fully Assessed Reason for Visit: Results [...] Encounter Status:Closed by TONYA SENIOR on 09/23/23 [facility] NICOTINE AND METAB, URon URIN ANABASINE QUANT <5 Normal [facility] Comment on above: Order Comment: Speci men Type: URINE SPECIMEN Ordering Facility: [facility] Address: [address] [place] [address] Performed By: #### U NICOT #### [facility] CLIA [id number] [address] [place] [address] URIN COTININE QUANT <15 Normal [facility] Comment on above: Order Comment: Speci men Type: URINE SPECIMEN Ordering Facility: [facility] Address: [address] [place] [address] Performed By: #### U NICOT #### [facility] CLIA [id number] [address] [place] [address] URIN NICOTINE QUANT <15 Normal [facility] Comment on above: Order Comment: Speci men Type: URINE SPECIMEN Ordering Facility: [facility] Address: [address] [place] [address] Result Comment: INTE RPRETIVE INFORMATION: Nicotine and Metabolites, Urine, Quantitative Methodology: Quantitative Liquid Chromatography-Tandem Mass Spectrometry Positive cutoff: Nicotine 15 ng/mL Cotinine 15 ng/mL 1-SV-Tdzfdalx 50 ng/mL Anabasine 5 ng/mL For medical [...] developed and its performance characteristics determined by [employer]. It has not been cleared or approved by the [place] Food and Drug Administration. This test was performed in a CLIA certified laboratory and is intended for clinical purposes. Performed By: [employer] [address] [place], [place] [id number] Director Of Career Resources: Rex Zuleta MD, PhD CLIA Number: [id number] Performed By: #### U NICOT #### [facility] CLIA [id number] [address] [place] [address] URINE 3 OH COTININE <50 Normal [facility] Comment on above: Order Comment: Speci men Type: URINE SPECIMEN Ordering Facility: [facility] Address: [address] [place] [address] Performed By: #### U NICOT #### [facility] CLIA [id number] [address] [place] [address] TOXICOLOGY SCREEN, ROUTINE U RINEon 09-08-2023 Amphetamines Confirm (U) [Mass/Vol] Negative Normal Negative [facility] Comment on above: Order Comment: Speci men Type: URINE SPECIMEN Ordering Facility: [facility] Address: [address] [place] [address] Result Comment: Cuto ff threshold at 1000 ng/mL. Performed By: #### U TOX2 #### [facility] CLIA [id number] [address] [place] [address] [place] BARBITURATES, URINE Negative Normal Negative [facility] Comment on above: Order Comment: Speci men Type: URINE SPECIMEN Ordering Facility: [facility] Address: [address] [place] [address] Result Comment: Cuto ff threshold at 200 ng/mL. Performed By: #### U TOX2 #### [facility] CLIA [id number] [address] [place] [address] [place] BENZODIAZEPINES, UR Negative Normal Negative [facility] Comment on above: Order Comment: Speci men Type: URINE SPECIMEN Ordering Facility: [facility] Address: [address] [place] [address] Result Comment: Cuto ff threshold at 200 ng/mL. Performed By: #### U TOX2 #### [facility] CLIA [id number] [address] [place] [address] [place] Cannabinoids Screen Ql (U) Negative Normal Negative [facility] Comment on above: Order Comment: Speci men Type: URINE SPECIMEN Ordering Facility: [facility] Address: [address] [place] [address] Result Comment: Cuto ff threshold at 50 ng/mL. Performed By: #### U TOX2 #### [facility] CLIA [id number] [facility] [place] [address] [place] Cocaine Ql (U) Negative Normal Negative [facility] Comment on above: Order Comment: Speci men Type: URINE SPECIMEN Ordering Facility: [facility] Address: [address] [place] [address] Result Comment: Cuto ff threshold at 300 ng/mL. Performed By: #### U TOX2 #### [facility] CLIA [id number] [address] [place] [address] [place] Ethanol (U) [Mass/Vol] <11 Normal <11 [facility] Comment on above: Order Comment: Speci men Type: URINE SPECIMEN Ordering Facility: [facility] Address: [address] [place] [address] Performed By: #### U TOX2 #### [facility] CLIA [id number] [address] [place] [address] [place] Opiates Screen Ql (U) Negative Normal Negative [facility] Comment on above: Order Comment: Speci men Type: URINE SPECIMEN Ordering Facility: [facility] Address: [address] [place] [address] Result Comment: Cuto ff threshold at 300 ng/mL. Performed By: #### U TOX2 #### [facility] CLIA [id number] [address] [place] [address] [place] oxyCODONE cutoff Screen (U) [Mass/Vol] Negative Normal Negative [facility] Comment on above: Order Comment: Speci men Type: URINE SPECIMEN Ordering Facility: [facility] Address: [address] [place] [address] Result Comment: Cuto ff threshold at 100 ng/mL. Performed By: #### U TOX2 #### [facility] CLIA [id number] [address] [place] [address] [place] Phencyclidine Ql (U) Negative Normal Negative [facility] Comment on above: Order Comment: Speci men Type: URINE SPECIMEN Ordering Facility: [facility] Address: [address] [place] [address] Result Comment: Cuto ff threshold at 25 ng/mL. Performed By: #### U TOX2 #### [facility] CLIA [id number] [address] [place] [address] [place] 25(OH)D3 SerPl-mCncon 2023 25-hydroxyvitamin D3 [Mass/Vol] 11.9 ng/mL Low 31.0-80.0 [facility] Comment on above: Order Comment: Speci men Type: BLOOD SPECIMEN Ordering Facility: [facility] Address: [address] [place] [address] Performed By: #### 2 276-4, 2132-01, 2283-12 #### [facility] CLIA [id number] [address] [place] [address] [place] CBC W Auto Differential pane l (Bld)on 09-05-2023 Basophils (Bld) [#/Vol] 10*3/uL Normal <0.11 [facility] Comment on above: Order Comment: Speci men Type: BLOOD SPECIMEN Ordering Facility: [facility] Address: [address] [place] [address] Performed By: #### 2 276-4, 2132-01, 2283-12 #### [facility] CLIA [id number] [address] [place] [address] [place] Basophils/100 WBC (Bld) 0.3 % Normal [facility] Comment on above: Order Comment: Speci men Type: BLOOD SPECIMEN Ordering Facility: [facility] Address: [address] [place] [address] Performed By: #### 2 276-4, 2132-01, 2283-12 #### [facility] CLIA [id number] [address] [place] [address] [place] Differential cell count method Nom (Bld) Auto Normal [facility] Comment on above: Order Comment: Speci men Type: BLOOD SPECIMEN Ordering Facility: [facility] Address: [address] [place] [address] Performed By: #### 2 276-4, 2132-01, 2283-12 #### [facility] CLIA [id number] [address] [place] [address] [place] Eosinophils (Bld) [#/Vol] 0.09 10*3/uL Normal <0.46 [facility] Comment on above: Order Comment: Speci men Type: BLOOD SPECIMEN Ordering Facility: [facility] Address: [address] [place] [address] Performed By: #### 2 276-4, 2132-01, 2283-12 #### [facility] CLIA [id number] [address] [place] [address] [place] Eosinophils/100 WBC (Bld) 1.3 % Normal [facility] Comment on above: Order Comment: Speci men Type: BLOOD SPECIMEN Ordering Facility: [facility] Address: [address] [place] [address] Performed By: #### 2 276-4, 2132-01, 2283-12 #### [facility] CLIA [id number] [address] [place] [address] [place] Erythrocyte distribution width (RBC) [Ratio] 12.6 % Normal 11.5-15.0 [facility] Comment on above: Order Comment: Speci men Type: BLOOD SPECIMEN Ordering Facility: [facility] Address: [address] [place] [address] Performed By: #### 2 276-4, 2132-01, 2283-12 #### [facility] CLIA [id number] [address] [place] [address] [place] Hematocrit (Bld) [Volume fraction] 38.0 % Normal 36.0-46.0 [facility] Comment on above: Order Comment: Speci men Type: BLOOD SPECIMEN Ordering Facility: [facility] Address: [address] [place] [address] Performed By: #### 2 276-4, 2132-01, 2283-12 #### [facility] CLIA [id number] [address] [place] [address] [place] Hemoglobin (Bld) [Mass/Vol] 12.8 g/dL Normal 11.5-15.5 [facility] Comment on above: Order Comment: Speci men Type: BLOOD SPECIMEN Ordering Facility: [facility] Address: [address] [place] [address] Performed By: #### 2 276-4, 2132-01, 2283-12 #### [facility] CLIA [id number] [address] [place] [address] [place] Immature granulocytes (Bld) [#/Vol] 10*3/uL Normal <0.10 [facility] Comment on above: Order Comment: Speci men Type: BLOOD SPECIMEN Ordering Facility: [facility] Address: [address] [place] [address] Performed By: #### 2 276-4, 2132-01, 2283-12 #### [facility] CLIA [id number] [address] [place] [address] [place] Immature granulocytes/100 WBC (Bld) 0.1 % Normal [facility] Comment on above: Order Comment: Speci men Type: BLOOD SPECIMEN Ordering Facility: [facility] Address: [address] [place] [address] Performed By: #### 2 276-4, 2132-01, 2283-12 #### [facility] CLIA [id number] [address] [place] [address] [place] Lymphocytes (Bld) [#/Vol] 3.49 10*3/uL Normal 1.00-4.00 [facility] Comment on above: Order Comment: Speci men Type: BLOOD SPECIMEN Ordering Facility: [facility] Address: [address] [place] [address] Performed By: #### 2 276-4, 2132-01, 2283-12 #### [facility] CLIA [id number] [address] [place], [place] [id number] [place] Lymphocytes/100 WBC (Bld) 48.6 % Normal [facility] Comment on above: Order Comment: Speci men Type: BLOOD SPECIMEN Ordering Facility: [facility] Address: [address] [place] [address] Performed By: #### 2 276-4, 2132-01, 2283-12 #### [facility] CLIA [id number] [address] [place] [address] [place] MCH (RBC) [Entitic mass] 30.0 pg Normal 26.0-34.0 [facility] Comment on above: Order Comment: Speci men Type: BLOOD SPECIMEN Ordering Facility: [facility] Address: [address] [place] [address] Performed By: #### 2 276-4, 2132-01, 2283-12 #### [facility] CLIA [id number] [address] [place] [address] [place] MCHC (RBC) [Mass/Vol] 33.7 g/dL Normal 30.5-36.0 [facility] Comment on above: Order Comment: Speci men Type: BLOOD SPECIMEN Ordering Facility: [facility] Address: [address] [place] [address] Performed By: #### 2 276-4, 2132-01, 2283-12 #### [facility] CLIA [id number] [address] [place] [address] [place] MCV (RBC) [Entitic vol] 89.2 fL Normal 80.0-100.0 [facility] Comment on above: Order Comment: Speci men Type: BLOOD SPECIMEN Ordering Facility: [facility] Address: [address] [place] [address] Performed By: #### 2 276-4, 2132-01, 2283-12 #### [facility] CLIA [id number] [address] [place] [address] [place] Monocytes (Bld) [#/Vol] 0.48 10*3/uL Normal <0.87 [facility] Comment on above: Order Comment: Speci men Type: BLOOD SPECIMEN Ordering Facility: [facility] Address: [address] [place] [address] Performed By: #### 2 276-4, 2132-01, 2283-12 #### [facility] CLIA [id number] [address] [place] [address] [place] Monocytes/100 WBC (Bld) 6.7 % Normal [facility] Comment on above: Order Comment: Speci men Type: BLOOD SPECIMEN Ordering Facility: [facility] Address: [address] [place] [address] Performed By: #### 2 276-4, 2132-01, 2283-12 #### [facility] CLIA [id number] [address] [place] [address] [place] Neutrophils (Bld) [#/Vol] 3.09 10*3/uL Normal 1.45-7.50 [facility] Comment on above: Order Comment: Speci men Type: BLOOD SPECIMEN Ordering Facility: [facility] Address: [address] [place] [address] Performed By: #### 2 276-4, 2132-01, 2283-12 #### [facility] CLIA [id number] [address] [place] [address] [place] Neutrophils/100 WBC (Bld) 43.0 % Normal [facility] Comment on above: Order Comment: Speci men Type: BLOOD SPECIMEN Ordering Facility: [facility] Address: [address] [place] [address] Performed By: #### 2 276-4, 2132-01, 2283-12 #### [facility] CLIA [id number] [address] [place] [address] [place] Nucleated RBC (Bld) [#/Vol] 10*3/uL Normal <0.01 [facility] Comment on above: Order Comment: Speci men Type: BLOOD SPECIMEN Ordering Facility: [facility] Address: [address] [place] [address] Performed By: #### 2 276-4, 2132-01, 2283-12 #### [facility] CLIA [id number] [address] [place] [address] [place] Nucleated RBC/100 WBC (Bld) [Ratio] 0.0 /100 WBC Normal [facility] Comment on above: Order Comment: Speci men Type: BLOOD SPECIMEN Ordering Facility: [facility] Address: [address] [place] [address] Performed By: #### 2 276-4, 2132-01, 2283-12 #### [facility] CLIA [id number] [address] [place] [address] [place] Platelet mean volume (Bld) [Entitic vol] 9.2 fL Normal 9.0-12.7 [facility] Comment on above: Order Comment: Speci men Type: BLOOD SPECIMEN Ordering Facility: [facility] Address: [address] [place], [place] [address] Performed By: #### 2 276-4, 2132-01, 2283-12 #### [facility] CLIA [id number] [address] [place] [address] [place] Platelets (Bld) [#/Vol] 361 10*3/uL Normal 150-400 [facility] Comment on above: Order Comment: Speci men Type: BLOOD SPECIMEN Ordering Facility: [facility] Address: [address] [place] [address] Performed By: #### 2 276-4, 2132-01, 2283-12 #### [facility] CLIA [id number] [address] [place] [address] [place] RBC (Bld) [#/Vol] 4.26 10*6/uL Normal 3.90-5.20 [facility] Comment on above: Order Comment: Speci men Type: BLOOD SPECIMEN Ordering Facility: [facility] Address: [address] [place] [address] Performed By: #### 2 276-4, 9, 2283-12 #### [facility] CLIA [id number] [address] [place] [address] [place] WBC (Bld) [#/Vol] 7.18 10*3/uL Normal 3.70-11.00 [facility] Comment on above: Order Comment: Speci men Type: BLOOD SPECIMEN Ordering Facility: [facility] Address: [address] [place] [address] Performed By: #### 2 276-4, 9, 2283-12 #### [facility] CLIA [id number] [address] [place] [address] [place] Comprehensive metabolic 2000 panelon 09-05-2023 Albumin [Mass/Vol] 4.0 g/dL Normal 3.9-4.9 [facility] Comment on above: Order Comment: Speci men Type: BLOOD SPECIMEN Ordering Facility: [facility] Address: [address] [place] [address] Performed By: #### 2 4323-8 #### [facility] CLIA [id number] [address] [place] [address] ALP [Catalytic activity/Vol] 91 U/L Normal 34-123 [facility] Comment on above: Order Comment: Speci men Type: BLOOD SPECIMEN Ordering Facility: [facility] Address: [address] [place] [address] Performed By: #### 2 4323-8 #### [facility] CLIA [id number] [address] [place] [address] ALT [Catalytic activity/Vol] 15 U/L Normal 7-38 [facility] Comment on above: Order Comment: Speci men Type: BLOOD SPECIMEN Ordering Facility: [facility] Address: [address] [place] [address] Performed By: #### 2 4323-8 #### [facility] CLIA [id number] [address] [place] [address] Anion gap [Moles/Vol] 10 mmol/L Normal 9-18 [facility] Comment on above: Order Comment: Speci men Type: BLOOD SPECIMEN Ordering Facility: [facility] Address: [address] [place] [id number] Performed By: #### 2 4323-8 #### [facility] CLIA [id number] [address] [place] [address] AST [Catalytic activity/Vol] 13 U/L Normal 13-35 [facility] Comment on above: Order Comment: Speci men Type: BLOOD SPECIMEN Ordering Facility: [facility] Address: [address] [place] [address] Performed By: #### 2 4323-8 #### [facility] CLIA [id number] [address] [place] [address] Bilirubin [Mass/Vol] 0.3 mg/dL Normal 0.2-1.3 [facility] Comment on above: Order Comment: Speci men Type: BLOOD SPECIMEN Ordering Facility: [facility] Address: [address] [place] [address] Performed By: #### 2 4323-8 #### [facility] CLIA [id number] [address] [place] [address] Calcium [Mass/Vol] 9.5 mg/dL Normal 8.5-10.2 [facility] Comment on above: Order Comment: Speci men Type: BLOOD SPECIMEN Ordering Facility: [facility] Address: [address] [place] [address] Performed By: #### 2 4323-8 #### [facility] CLIA [id number] [address] [place] [address] Chloride [Moles/Vol] 106 mmol/L High 97-105 [facility] Comment on above: Order Comment: Speci men Type: BLOOD SPECIMEN Ordering Facility: [facility] Address: [address] [place] [address] Performed By: #### 2 4323-8 #### [facility] CLIA [id number] [address] [place] [address] CO2 [Moles/Vol] 26 mmol/L Normal 22-30 [facility] Comment on above: Order Comment: Speci men Type: BLOOD SPECIMEN Ordering Facility: [facility] Address: [address] [place] [address] Performed By: #### 2 4323-8 #### [facility] CLIA [id number] [address] [place] [address] Creatinine [Mass/Vol] 0.75 mg/dL Normal 0.58-0.96 [facility] Comment on above: Order Comment: Speci men Type: BLOOD SPECIMEN Ordering Facility: [facility] Address: [address] [place] [address] Performed By: #### 2 4323-8 #### [facility] CLIA [id number] [address] [place] [address] Creatinine and Glomerular filtration rate.predicted panel (S/P/Bld) 109 mL/min/1.73m??? Normal >=60 [facility] Comment on above: Order Comment: Speci men Type: BLOOD SPECIMEN Ordering Facility: [facility] Address: [address] [place] [address] Result Comment: Stephani mated Glomerular Filtration Rate [...] GFR. Performed By: #### 2 4323-8 #### [facility] CLIA [id number] [address] [place] [address] Glucose [Mass/Vol] 104 mg/dL High 74-99 [facility] Comment on above: Order Comment: Laury bradshaw Type: BLOOD SPECIMEN Ordering Facility: [facility] Address: [address] [place] [address] Result Comment: The [place] Diabetes Association (ADA) provides guidance for cutoff [...] Standards of Medical Care in Diabetes 2016, [place] [employer] Association. Diabetes Care. 2016.39(Suppl 1). Performed By: #### 2 4323-8 #### [facility] CLIA [id number] [address] [place] [address] Potassium [Moles/Vol] 4.2 mmol/L Normal 3.7-5.1 [facility] Comment on above: Order Comment: Laury bradshaw Type: BLOOD SPECIMEN Ordering Facility: [facility] Address: [address] [place] [address] Performed By: #### 2 4323-8 #### [facility] CLIA [id number] [address] [place] [address] Protein [Mass/Vol] 7.4 g/dL Normal 6.3-8.0 [facility] Comment on above: Order Comment: Laury bradshaw Type: BLOOD SPECIMEN Ordering Facility: [facility] Address: [address] [place] [address] Performed By: #### 2 4323-8 #### [facility] CLIA [id number] [address] [place] [address] Sodium [Moles/Vol] 142 mmol/L Normal 136-144 [facility] Comment on above: Order Comment: Speci men Type: BLOOD SPECIMEN Ordering Facility: [facility] Address: [address] [place] [address] Performed By: #### 2 4323-8 #### [facility] CLIA [id number] [address] [place] [address] Urea nitrogen [Mass/Vol] 12 mg/dL Normal 7-21 [facility] Comment on above: Order Comment: Speci men Type: BLOOD SPECIMEN Ordering Facility: [facility] Address: [address] [place] [address] Performed By: #### 2 4323-8 #### [facility] CLIA [id number] [address] [place] [address] Ferritin SerPl-mCncon 2023 Ferritin [Mass/Vol] 86.7 ng/mL Normal 14.7-205.1 [facility] Comment on above: Order Comment: Speci men Type: BLOOD SPECIMEN Ordering Facility: [facility] Address: [address] [place] [address] Performed By: #### 2 276-4, 2132-01, 2283-12 #### [facility] CLIA [id number] [address] [place] [address] [place] Folate SerPl-mCncon 09-05-19 Folate [Mass/Vol] 12.0 ng/mL Normal >4.7 [facility] Comment on above: Order Comment: Speci men Type: BLOOD SPECIMEN Ordering Facility: [facility] Address: [address] [place] [address] Performed By: #### 2 276-4, 2132-01, 2283-12 #### [facility] CLIA [id number] [address] [place] [address] [place] H. pylori IgG IA Qlon 2023 H. PYLORI IGG, QUAL Negative Normal Negative [facility] Comment on above: Order Comment: Laury bradshaw Type: BLOOD SPECIMEN Ordering Facility: [facility] Address: [address] [place] [address] Result Comment: Cash ot exclude H. pylori infection if the specimen collected 3-4 weeks after onset of symptoms. Performed By: #### 2 276-4, 2132-9, 2284-8 #### [facility] CLIA [id number] [address] [place] [address] [place] HbA1c (Bld)on 09-05-2023 Average glucose Estimated from glycated hemoglobin (Bld) [Mass/Vol] 108 mg/dL Normal [facility] Comment on above: Order Comment: Laury bradshaw Type: BLOOD SPECIMEN Ordering Facility: [facility] Address: [address] [place] [address] Result Comment: eAG: (Estimated average glucose) is a calculated value from HgbA1c and is vendor representatives of the average blood glucose level in the last 2-3 month period. Performed By: #### 5 5454-3 #### [facility] CLIA [id number] [address] [place] [address] [place] HbA1c (Bld) [Mass fraction] 5.4 % Normal 4.3-5.6 [facility] Comment on above: Order Comment: Laury bradshaw Type: BLOOD SPECIMEN Ordering Facility: [facility] Address: [address] [place] [address] Result Comment: Amer ican Diabetes Association guidelines indicate that patients with HgbA1c in the range 5.7-6.4% are at increased risk for development of diabetes, and intervention by lifestyle modification may be beneficial. HgbA1c greater or equal to 6.5% is considered diagnostic of diabetes. Performed By: #### 5 5454-3 #### [facility] CLIA [id number] [address] [place] [address] [place] Iron and Iron binding capaci ty panelon 09-05-2023 Iron [Mass/Vol] 94 ug/dL Normal 41-186 [facility] Comment on above: Order Comment: Speci men Type: BLOOD SPECIMEN Ordering Facility: [facility] Address: [address] [place] [address] Performed By: #### 5 0190-8, 3016-3, 43846-1 #### [facility] CLIA [id number] [address] [place] [address] [place] #### 30644-3 #### [facility] CLIA [id number] [address] [place] [address] [place] [facility] CLIA [id number] [address] [place] [address] Iron binding capacity [Mass/Vol] 310 ug/dL Normal 232-386 [facility] Comment on above: Order Comment: Speci men Type: BLOOD SPECIMEN Ordering Facility: [facility] Address: [address] [place] [address] [place] [address] Performed By: #### 5 0190-8, 6-3, 77073-3 #### [facility] CLIA [id number] [address] [place] [address] [place] #### 49918-6 #### [facility] CLIA [id number] [address] [place] [address] [place] [facility] CLIA [id number] [address] [place] [address] Iron/TIBC [Molar ratio] 30.3 % Normal 15.0-57.0 [facility] Comment on above: Order Comment: Speci men Type: BLOOD SPECIMEN Ordering Facility: [facility] Address: [address] [place] [id number] Performed By: #### 5 0190-8, 6-3, 09387-0 #### [facility] CLIA [id number] [address] [place] [address] [place] #### 66544-4 #### [facility] CLIA [id number] [address] [place] [address] [place] [facility] CLIA [id number] [address] [place] [address] Lipid 1996 panelon 4 Cholesterol [Mass/Vol] 179 mg/dL Normal <200 [facility] Comment on above: Order Comment: Abbii men Type: BLOOD SPECIMEN Ordering Facility: [facility] Address: [address] [place] [address] Result Comment: <200 mg/dL, Desirable 200-239 mg/dL, Borderline high >239 mg/dL, High Performed By: #### 2 276-4, 2132-01, 2283-12 #### [facility] CLIA [id number] [address] [place] [address] [place] Cholesterol in HDL [Mass/Vol] 45 mg/dL Normal >39 [facility] Comment on above: Order Comment: Laury men Type: BLOOD SPECIMEN Ordering Facility: [facility] Address: [address] [place] [address] Result Comment: 40-5 9 mg/dL, Acceptable >59 mg/dL, High: Negative risk factor for coronary heart disease <40 mg/dL, Low: Positive risk factor for coronary heart disease Performed By: #### 2 276-4, 2132-01, 2283-12 #### [facility] CLIA [id number] [address] [place] [address] [place] Cholesterol in LDL [Mass/Vol] 119 mg/dL High <100 [facility] Comment on above: Order Comment: Abbii men Type: BLOOD SPECIMEN Ordering Facility: [facility] Address: [address] [place] [address] Result Comment: <100 mg/dL, Optimal 100-129 mg/dL, Near optimal/above optimal 130-159 mg/dL, Borderline high 160-189 mg/dL, High >189 mg/dL, Very high Secondary prevention optimal LDL Cholesterol levels are recommended to be < 70 mg/dL Performed By: #### 2 276-4, 9, 2283-12 #### [facility] CLIA [id number] [address] [place] [address] [place] Cholesterol in LDL/Cholesterol in HDL [Mass ratio] 2.64 {ratio} High <2.54 [facility] Comment on above: Order Comment: Laury bradshaw Type: BLOOD SPECIMEN Ordering Facility: [facility] Address: [address] [place] [address] Result Comment: Refe rence: 1. National Cholesterol Education Program ATP III Guideline At-A-Glance Quick Desk Reference: National Heart, Lung, and Blood [place]. National Institutes of Health. 2001: NIH Publication No. 01-3305. 2. An International Atherosclerosis Society position paper: global recommendations for the management of dyslipidemia: executive summary, Atherosclerosis. 2014: 232(2):410-413. Performed By: #### 2 276-4, 9, 2283-12 #### [facility] CLIA [id number] [address] [place] [address] [place] Cholesterol in VLDL [Mass/Vol] 15 mg/dL Normal <30 [facility] Comment on above: Order Comment: Laury bradshaw Type: BLOOD SPECIMEN Ordering Facility: [facility] Address: [address] [place] [address] Performed By: #### 2 276-4, 9, 2283-12 #### [facility] CLIA [id number] [address] [place] [address] [place] Cholesterol non HDL [Mass/Vol] 134 mg/dL High <130 [facility] Comment on above: Order Comment: Laury bradshaw Type: BLOOD SPECIMEN Ordering Facility: [facility] Address: [address] [place] [address] Result Comment: <130 mg/dL, Optimal 130-159 mg/dL, Near optimal/above optimal 160-189 mg/dL, Borderline high 190-219 mg/dL, High >219 mg/dL, Very high Secondary prevention optimal non HDL Cholesterol levels are recommended to be <100 mg/dL Performed By: #### 2 276-4, 9, 8 #### [facility] CLIA [id number] [address] [place] [address] [place] Cholesterol.total/Cho lesterol in HDL [Mass ratio] 3.98 {ratio} Normal <5.10 [facility] Comment on above: Order Comment: Speci men Type: BLOOD SPECIMEN Ordering Facility: [facility] Address: [address] [place] [address] Performed By: #### 2 276-4, 9, 2283-12 #### [facility] CLIA [id number] [address] [place] [address] [place] FASTING TIME 12 hrs Normal [facility] Comment on above: Order Comment: Speci men Type: BLOOD SPECIMEN Ordering Facility: [facility] Address: [address] [place] [address] Performed By: #### 2 276-4, 9, 2283-12 #### [facility] CLIA [id number] [address] [place] [address] [place] Triglyceride [Mass/Vol] 74 mg/dL Normal <150 [facility] Comment on above: Order Comment: Speci men Type: BLOOD SPECIMEN Ordering Facility: [facility] Address: [address] [place] [address] Result Comment: <150 mg/dL, Normal 150-199 mg/dL, Borderline high 200-499 mg/dL, High >499 mg/dL, Very high Performed By: #### 2 276-4, 9, 2283-12 #### [facility] CLIA [id number] [address] [place] [address] [place] NT-proBNP [facility] 09-04 Natriuretic peptide.B prohormone N-Terminal [Mass/Vol] 48 pg/mL Normal <125 [facility] Comment on above: Order Comment: Speci men Type: BLOOD SPECIMEN Ordering Facility: [facility] Address: [address] [place] [address] Performed By: #### 2 276-4, 2132-01, 2283-12 #### [facility] CLIA [id number] [address] [place] [address] [place] TSH SerPl-aCncon 09-05-2023 TSH Qn 6.440 m[IU]/L High 0.270-4.200 [facility] Comment on above: Order Comment: Speci augustine Type: BLOOD SPECIMEN Ordering Facility: [facility] Address: [address] [place] [address] Result Comment: If t he patient is , TSH reference range varies by gestational period: First Trimester (weeks 9-12): 0.180-2.990 mIU/L Second Trimester: 0.110-3.980 mIU/L Third Trimester: 0.480-4.710 mIU/L Seth Crews et al. A Practical Approach for the Verifications and Determination of Site- and Trimester-Specific Reference Intervals for Thyroid Function tests in . Thyroid, 2019:29:3:412-420. Zhang E, et al. 2017 Guidelines of the [place] Thyroid Association for the Diagnosis and Management of Thyroid Disease during and the . Thyroid, 2017:27:3:315-389. Performed By: #### 2 276-4, 2132-01, 2283-12 #### [facility] CLIA [id number] [address] [place], [place] [id number] [place] VITAMIN B1 (THIAMINE), WHOLE BLOODon 09-05-2023 Thiamine (Bld) [Moles/Vol] 179.2 nmol/L Normal 84.3-213.3 [facility] Comment on above: Order Comment: Laury bradshaw Type: BLOOD SPECIMEN Ordering Facility: [facility] Address: [address] [place] [address] Result Comment: This assay measures the concentration of thiamine diphosphate (TDP), the primary active form of vitamin B1. Approximately 90 percent of vitamin B1 present in whole blood is TDP. Thiamine and thiamine monophosphate, which comprise the remaining 10 percent, are not measured. This test was developed and its performance characteristics determined by [facility] [place] ([facility]). It has not been cleared or approved by the FDA. [facility] is regulated under CLIA as qualified to perform high-complexity testing. This test is used for clinical purposes. It should not be regarded as investigational or for research. Performed By: #### B 1WB #### [facility] CLIA [id number] [address] [place] [address] [place] Vit B12 SerPl-mCncon 024 Cobalamin (Vitamin B12) [Mass/Vol] 612 pg/mL Normal 232-1245 [facility] Comment on above: Order Comment: Speci men Type: BLOOD SPECIMEN Ordering Facility: [facility] Address: [address] [place] [address] Performed By: #### 2 276-4, 2132-9, 2284-8 #### [facility] CLIA [id number] [address] [place] [address] [place] Glucose - FINGER STICKon Glucose [Mass/Vol] 5.4 mg/dL [employer] Other PAP ACOG PANEL 2: 30 to 65on 06-10-2022 . . Normal [facility] Comment on above: Result Comment: Perf ormed at: [facility] Performed By: #### 4 [id number] #### [facility] [address] [place] [address] Dr. Sachin Coates Age Gdln ACOG Testing -66 Normal [facility] Comment on above: Performed By: #### 4 [id number] #### [facility] [address] [place] [address] Dr. Sachin Coates DIAGNOSIS: Comment Normal [facility] Comment on above: Result Comment: NEGA TIVE FOR INTRAEPITHELIAL LESION OR MALIGNANCY. CELLULAR CHANGES ASSOCIATED WITH INFLAMMATION ARE PRESENT. THIS SPECIMEN WAS RESCREENED PART OF OUR HEALTH ASSESSMENT AND TREATMENT TEACHER PROGRAM. Performed at: WB Performed By: #### 4 [id number] #### [facility] [address] [place] [address] Dr. Sachin Coates HPV Aptima Negative Normal Negative [facility] Comment on above: Result Comment: This nucleic acid amplification test detects fourteen high-risk HPV types (16,18,31,33,35,39,45,51,52,56,58,59,66,68) without differentiation. Performed at: =G Performed By: #### 4 [id number] #### [facility] [address] [place] [address] Dr. Sachin Coates HPV Genotype Reflex Comment Normal [facility] Comment on above: Result Comment: Crit eria not met, HPV Genotype not performed. Performed at: WB Performed By: #### 4 [id number] #### [facility] [address] [place] [address] Dr. Sachin Coates Methodology: Comment Normal [facility] Comment on above: Result Comment: This liquid based ThinPrep(R) pap test was screened with the use of an image guided system. Performed at: WB Performed By: #### 4 [id number] #### [facility] [address] [place] [address] Dr. Sachin Coates Note: Comment Normal [facility] Comment on above: Result Comment: The Pap smear is a screening test designed to aid in the detection of premalignant and malignant conditions of the uterine cervix. It is not a diagnostic procedure and should not be used as the sole means of detecting cervical cancer. Both false-positive and false-negative reports do occur. . Performed at: WB Performed By: #### 4 [id number] #### [facility] [address] [place] [address] Dr. Sachin Coates Performed by: Comment Normal [facility] Comment on above: Result Comment: Peyton Beverly, Occ Therapist (ASCP) Performed at: WB Performed By: #### 4 [id number] #### [facility] [address] [place] [address] Dr. Sachin Coates QC reviewed by: Comment Normal [facility] Comment on above: Result Comment: Cielo Cochran, Supervisory Occ Therapist (ASCP) Performed at: WB Performed By: #### [id number] #### [facility] [address] [address] [address] Sachin Coates Specimen adequacy: Comment Normal [facility] Comment on above: Result Comment: Sati sfactory for evaluation. Endocervical and/or squamous metaplastic cells (endocervical component) are present. Performed at: WB Performed By: #### [id number] #### [facility] [address] [address] [address] Sachin Coates COVID-19 SOFIAOrdered By: Dario To on 12-02-2021 SARS-CoV+SARS-CoV-2 (COVID-19) Ag IA.rapid Ql (Resp) Negative Negative [facility] Comment on above: This is a duplicate Zuleyma SARS Antigen (PAMELLA) result to be used for statistical tracking purpose only. No Panel InformationOrdered By: Ck To on 12-02-2021 SARS Antigen (LFIA) [facility] Chart Updateon 08-08-2020 Chart Update Chart [...] Aug 08 2020 10:18AM EST (Author) Normal [employer] [facility] - Procedure Visiton 0 07-10-2020 [facility] - Procedure Visit Chief Complaint IUI Active [...] Touchworks ESTRADIOLon 07-08-2020 ESTRADIOL 186 pg/mL Normal [facility] Comment on above: Result Comment: Estr adiol measurement is performed using the Shruth[employer] App[employer] Access Sensitive Estradiol Immunoassay. Estradiol testing is performed using a different test methodology at [facility] than other [facility]. Direct result comparison should only be made within the same method. REF VALUES EARLY FOLLICULAR 22-115 MID FOLLICULAR 25-115 OVULATORY PEAK 32-517 MID LUTEAL 37-246 POSTMENOPAUSE <15- 25 MALE <15- 32 Performed By: #### [facility] #### [facility] [address] [place] [address] Estradiol, Serumon E2 [Mass/Vol] 186 pg/mL -OBGYN-RUST an 310 IVF Work Phone: Comment on above: Estradiol measuremen t is performed using the [employer] Access Sensitive Estradiol Immunoassay. Estradiol testing is performed using a different test methodology at [facility] than other [facility]. Direct result comparison should only be made within the same method.REF VALUESEARLY FOLLICULAR 22-115MID FOLLICULAR 25-115OVULATORY PEAK 32-517MID LUTEAL 37-246POSTMENOPAUSE <15- 25MALE <15- 32 LUTEINIZING HORMONEon 2020 LUTEINIZING HORMONE 9.5 IU/L Normal [facility] Comment on above: Result Comment: Lute inizing Hormone [LH] is performed using the Shruthi J [place] Access Immunoassay. LH testing is performed using a different test methodology at [facility] than other [facility]. Direct result comparison should only be made within the same method. REF VALUES FOLLICULAR PHASE 1.5-10.0 MID-CYCLE 13.0-72.0 LUTEAL PHASE 0.5-13.0 MENOPAUSE 15.0-65.0 PREPUBERTY 0- 3.0 CHILDREN 0- 6.0 ADULT MALE 1.0- 9.0 Performed By: #### G CCHA #### [facility] [address] [place] [address] Luteinizing Hormone, Serumon 07-08-2020 Lutropin Qn 9.5 {IU/L} PZ-UBIFH-Tnqu an 310 IVF Work Phone: Comment on above: Luteinizing Hormone [LH] is performed using the Shruthi [place] Access Immunoassay. LH testing is performed using a different test methodology at [facility] than [facility]. Direct result comparison should only be made within the same method.REF VALUESFOLLICULAR PHASE 1.5-10.0MID-CYCLE 13.0-72.0LUTEAL PHASE 0.5-13.0MENOPAUSE 15.0-65.0PREPUBERTY 0- 3.0CHILDREN 0- 6.0ADULT MALE 1.0- 9.0 TYPE + SCREENon 07-06-2020 ABO TYPE A Normal [facility] Comment on above: Performed By: #### T +S #### [facility] [address] [place] [address] RH TYPE Positive Normal [facility] Comment on above: Performed By: #### T +S #### [facility] [address] [place] [address] ESTRADIOLon 07-05-2020 ESTRADIOL 58 pg/mL Normal [facility] Comment on above: Result Comment: Estr adiol measurement is performed using the [employer] Access Sensitive Estradiol Immunoassay. Estradiol testing is performed using a different test methodology at [facility] than other [facility]. Direct result comparison should only be made within the same method. REF VALUES EARLY FOLLICULAR 22-115 MID FOLLICULAR 25-115 OVULATORY PEAK 32-517 MID LUTEAL 37-246 POSTMENOPAUSE <15- 25 MALE <15- 32 Performed By: #### [facility] #### [facility] [address] [place] [address] Estradiol, Serumon 1 E2 [Mass/Vol] 58 pg/mL MG-OBGYN-Ri sm an 310 IVF Work Phone: Comment on above: Estradiol measuremen t is performed using the [employer] Access Sensitive Estradiol Immunoassay. Estradiol testing is performed using a different test methodology at [facility] than other [facility]. Direct result comparison should only be made within the same method.REF VALUESEARLY FOLLICULAR 22-115MID FOLLICULAR 25-115OVULATORY PEAK 32-517MID LUTEAL 37-246POSTMENOPAUSE <15- 25MALE <15- 32 Hematologyon 07-05-2020 ABO group Nom (Bld) A MG-TRUST AND ESTATES ATTORNEY-Rism an 310 IVF Work Phone: Blood group antibody screen Ql Negative VY-XPTXM-Dzla an 310 IVF Work Phone: Rh immune globulin screen (Bld) [Interp] Positive MG-OBGYN-R ism an 310 IVF Work Phone: LUTEINIZING HORMONEon 2020 LUTEINIZING HORMONE 9.2 IU/L Normal [facility] Comment on above: Result Comment: Lute inizing Hormone [LH] is performed using the [employer] Access Immunoassay. LH testing is performed using a different test methodology at [facility] than other [facility]. Direct result comparison should only be made within the same method. REF VALUES FOLLICULAR PHASE 1.5-10.0 MID-CYCLE 13.0-72.0 LUTEAL PHASE 0.5-13.0 MENOPAUSE 15.0-65.0 PREPUBERTY 0- 3.0 CHILDREN 0- 6.0 ADULT MALE 1.0- 9.0 Performed By: #### L #### [facility] [address] [place] [address] Luteinizing Hormone, Serumon 07-05-2020 Lutropin Qn 9.2 {IU/L} PR-PMRWG-Unsp an 310 IVF Work Phone: Comment on above: Luteinizing Hormone [LH] is performed using the [employer] Access Immunoassay. LH testing is performed using a different test methodology at [facility] than other [facility]. Direct result comparison should only be made within the same method.REF VALUESFOLLICULAR PHASE 1.5-10.0MID-CYCLE 13.0-72.0LUTEAL PHASE 0.5-13.0MENOPAUSE 15.0-65.0PREPUBERTY 0- 3.0CHILDREN 0- 6.0ADULT MALE 1.0- 9.0 [facility] - Office Visiton 02-0 [facility] - Office Visit Diagnoses/Problems Assessed Morbid obesity [...] MD [facility] [phone] Julien [phone] [place] 1 Amended By: Bayron Mccarty; Jun 19 2020 10:16 AM ESTProvider Chitodilip Jaleesa is a 30-year-old female who desires [...] MD [facility] [phone] Julien [phone] [place] Appointment Duration:. 25 minutes; greater than half of the time was spent on counseling. 1 Amended By: Bayron Mccarty; Jun 19 2020 10:16 AM ESTChief Complaint follow up History of Present Ghnzuuv1806/19/2020 9:30AM JALEESA ARRIETA , 30 year is contacted for an (audio-visual, or audio only) Telehealth visit. Today's visit was provided through telemedicine conferencing: Using Warply platform. Consent: The concept of telemedicine? has [...] is a telehealth appointment Results/Data HCG, Beta Tektazkyadwf23Ogv1758 11:58AMBayron Mccarty Test NameResultFlagReference HCG, Beta Quantitative<2 [...] HCG measurement is performed using the Sh[employer] [place] Access Immunoassay which detects intact HCG and free beta HCG subunit. This test is not indicated for use as a tumor marker. HCG testing is performed using a different test methodology at [facility] than other [facility]. Direct result comparison should only be made within the same method. REF VALUES NON FEMALE <5 MALES <5 Progesterone, Twplu86Kjo6501 11:58AMBayron Mccarty Test NameResultFlagReference Progesterone, Serum10.5 ng/mL REF VALUES MALE <0.3- 1.2 FOLLICULAR PHASE <0.3- 1.4 LUTEAL PHASE 3.3-25.6 MID-LUTEAL PHASE 4.4-28.0 POSTMENOPAUSAL <0.3- 0.7 FEMALES: 1ST TRIMESTER 11.2- 90.0 2ND TRIMESTER 25.6- 89.4 3RD TRIMESTER 48.4-422.5 . Patients receiving DHEA-S supplements may show false elevation of progesterone for results near 1.0 ng/mL. Contact laboratory at [phone] if alternative testing is needed. CMV IgG and IgM [id number] 11:58AMBayron Mccarty Test NameResultFlagReference CMV IgG AntibodyREACTIVEASee Below Reference Range: NONREACTIVE CMV IGM [id number] 11:58AMBibianaBayron Test NameResultFlagReference CMV IGM AB<30.00 AU/mL [...] testing in two or more weeks. Xray Hfofivlbnjgnqwvgesa92Njo 2020 12:00AMBayron Mccarty [Mar 28, 2020 9:43AM Bayron Mccarty] Reason: Unspecified for Xray Hysterosalpingogram Test NameResultFlagReference Xray Hysterosalpingogram Please click on the link to view the study images Anti Mullerian [id number] 12:03PMBayron Mccarty Test NameResultFlagReference Anti Mullerian Hormone6.36 ng/mL For assays employing antibodies, the possibility exists for interference by heterophile antibodies in the samples.1 1.Oswald Brunner Interferences in Immunoassays - still a threat. Clin. Chem. 2000; 46: 2099-4568. This test was developed and its performance characteristics determined by [employer]. It has not been cleared or approved by the Food and Drug Administration. Reference Range: Females 26 - 30y: 1.03 - 11.10 Median 4.20 AMH concentrations of >= 1.06 ng/mL is correlated with a better response to ovarian stimulation, produced more retrievable oocytes and higher odds of live according to Michaeler et al. Fertility and Sterility. 2010: 94:8688-2023. The current AMH test method correlates with [...] exclude an AMH-secreting ovarian tumor. Rubella IgG Umajcgpr31Wry1020 12:03PMBibiana Bayron Test NameResultFlagReference Rubella IgG AntibodyPOSITIVE [...] TSH WITH REFLEX TO FREE T4 IF [id number] 12:03PMBibiana Bayron Test NameResultFlagReference Thyroid Stimulating Hormone, Serum2.17 mIU/LSee Below Reference Range: 0.44 - 3.98 TSH testing is performed using different testing methodology at [facility] than at other [facility]. Direct result comparisons should only be made within the same method. Varicella Zoster IgG [id number] 12:03PMBibiana Bayron Test NameResultFlagReference Varicella Zoster IgG [...] altered results in serological assays. Vitamin D 25-Czhwbay92Iux8264 12:03PMBibianaBayron Test NameResultFlagReference Vitamin D 25-Hydroxy, Level17 ng/mLA . DEFICIENCY: < 20 NG/ML INSUFFICIENCY: 20-29 NG/ML SUFFICIENCY: 30-100 NG/ML THIS ASSAY ACCURATELY QUANTIFIES THE SUM OF VITAMIN D3, 25-HYDROXY AND VIT D2,25-HYDROXY. { 17-Hydroxyprogesterone, Qnpzq91Tgi5010 12:03PMBibianaBayron Test NameResultFlagReference 17-Hydroxyprogesterone, Serum33 ng/dL Unable to [...] Endocrinol Metab. 1991;73:674-686; J Clin Endocrinol Metab. 1989;69;9090-0162; J Clin Endocrinol Metab. 1994;78:226-270. Pediatr Res 1988;23:525-529. MedLinePlus (accessed 10/25/13). This test was developed and its analytical performance characteristics have been determined by [facility] [place], [place]. It has not been cleared or approved by the U.S. Food and Drug Administration. This assay has been validated pursuant to the CLIA regulations and is used for clinical purposes. DHEA Sulfate, [id number] 12:03PMBibiana Bayron Test NameResultFlagReference DHEA Sulfate, Ibbxu415 ug/dL65 - 395 MATURITY-BASED REFERENCE RANGES: PUBERTAL [...] laboratory for further information. Testosterone Free + Rucec94Xvy2140 12:03PMBibiana Bayron Test NameResultFlagReference Testosterone, Total63 ng/dLH2-45 For additional information, please refer to http://education.Climeworks/faq/ TotalTestosteroneLCMSMSF AQ165 (This link is being provided for informational/ educational purposes only.) This test was developed and its analytical performance characteristics have been determined by [place] It has not been cleared or approved by the U.S. Food and Drug Administration. This assay has been validated pursuant to the CLIA regulations and is used for clinical purposes. Testosterone, Free Serum8.8 pg/mLH0.1-6.4 This test was developed and its analytical performance characteristics have been determined by [place]. It has not been cleared or approved by the U.S. Food and Drug Administration. This assay has been validated pursuant to the CLIA regulations and is used for clinical purposes. Hemoglobin [id number] 12:03PMBibiana Bayron Test NameResultFlagReference Hemoglobin A1C, Level5.5 % Diagnosis of Diabetes-Adults Non-Diabetic: < or = 5.6% Increased risk for developing diabetes: 5.7-6.4% Diagnostic of diabetes: > or = 6.5% . Monitoring of Diabetes Age (y) Therapeutic Goal (%) Adults: >18 <7.0 Pediatrics: 13-18 <7.5 7-12 <8.0 0- 6 7.5-8.5 [place] [employer]. Diabetes Care 33(S1), May 2009. Estimated Average Jwpljkr310 MG/DL GC + Chlamydia By Amplified Pwnymfplf72Bsc3316 12:03PMBibiana Bayron Test NameResultFlagReference N.GONORRHEA,AMPLIFIEDNEG ATIVENegative SOURCE: Urine Chlamydia Trach, AmplifiedNEGATIVENegativ e Hepatitis B Surface [id number] 12:03PMBayron Mccarty Test NameResultFlagReference Hep.B Surface AgNONREACTIVESee Below Reference Range: NONREACTIVE Biotin interference may cause falsely decreased results. Patients taking a Biotin dose of up to 5 mg/day should refrain from taking Biotin for 24 hours before sample collection. Providers may contact their local laboratory for further information. Hepatitis C Antibody [id number] 12:03PMBayron Mccarty Test NameResultFlagReference Hepatitis C-AntibodyNONREACTIVESee Below Reference Range: NONREACTIVE Results from patients taking biotin supplements or receiving high-dose biotin therapy should be interpreted with caution due to possible interference with this test. Providers may contact their local laboratory for further information. HIV 1/2 ANTIGEN/ANTIBODY SCREEN WITH REFLEX TO [id number] 12:03PMBayron Mccarty Test NameResultFlagReference HIV 1/2 AG/AB SCREENNONREACTIVESee Below Reference Range: NONREACTIVE HIV Ag/Ab screen is performed using the [employer] HIV Ag/Ab Combo assay which detects the presence of HIV p24 antigen as well as antibodies to HIV-1 (Group M and O) and HIV-2. SYPHILIS SCREENING WITH [id number] 12:03PMBayron Mccarty Test NameResultFlagReference SYPHILIS TOTAL ANTIBODYNONREACTIVESee [...] 04-20-2020 CMV IGM AB <30.[address] [facility] Comment on above: Result Comment: REFE [...] weeks. Performed By: #### C MVM2 #### [facility] [address] [place] [address] CMV IGG AND IGM ABon 020 CMV IGG AB REACTIVE Abnormal NONREACTIVE [facility] Comment on above: Performed By: #### C MV2 #### [facility] [address] [place] [address] PROGESTERONEon 04-16-2020 PROGESTERONE 10.5 ng/mL Normal [facility] Comment on above: Result Comment: REF VALUES MALE <0.3- 1.2 FOLLICULAR PHASE <0.3- 1.4 LUTEAL PHASE 3.3-25.6 MID-LUTEAL PHASE 4.4-28.0 POSTMENOPAUSAL <0.3- 0.7 FEMALES: 1ST TRIMESTER 11.2- 90.0 2ND TRIMESTER 25.6- 89.4 3RD TRIMESTER 48.4-422.5 . Patients receiving DHEA-S supplements may show false elevation of progesterone for results near 1.0 ng/mL. Contact laboratory at [phone] if alternative testing is needed. Performed By: #### P BOBBY #### [facility] [address] [place] [address] HCG,BETA-QUANTITATIVEon HCG,BETA-QUANTITATIVE <[address] [facility] Comment on above: Result Comment: Low- [...] HCG measurement is performed using the Sh[employer] [place] Access Immunoassay which detects intact HCG and free beta HCG subunit. This test is not indicated for use as a tumor marker. HCG testing is performed using a different test methodology at [facility] than other [facility]. Direct result comparison should only be made within the same method. REF VALUES NON FEMALE <5 MALES <5 Performed By: #### H QU #### [address] [id number] [facility] - Office Visiton [facility] Office Visit Chief Complaint An interactive [...] test results. Roby JEWELL. History of Present Byehmov8604/14/2020 9:30AM JALEESA ARRIETA , 30 year is contacted for an (audio-visual, or audio only) Telehealth visit. Today's visit was provided through telemedicine conferencing: Using Warply platform. Consent: The concept of telemedicine? has [...] 25 MCG (1000 UT) Oral Tablet; Therapy: [id number] to Recorded Dispense: 0 Days ; #: Sufficient Tablet; Refill: 0; KEVIN = N; Record; Last Updated By: Breezy Jasso; 2020 1:15:24 PM Vitals Vital Signs Recorded: 67Hva7612 09:08AM Height5 ft 6 in Nwfosk883 lb BMI Yikxjbuhns26.81 BSA Calculated2.34 JYE31Shs2828 Gravida1 Para0 Pain Scale0 Physical Exam This is a telehealth appointment Results/Data Anti Mullerian Letsksb08Hav2806 12:03PMBayron Mccarty Test NameResultFlagReference Anti Mullerian Hormone6.36 ng/mL For assays employing antibodies, the possibility exists for interference by heterophile antibodies in the samples.1 1.Oswald Crews. Interferences in Immunoassays - still a threat. Clin. Chem. 2000; 46: 3135-9682. This test was developed and its performance characteristics determined by [employer]. It has not been cleared or approved by the Food and Drug Administration. Reference Range: Females 26 - 30y: 1.03 - 11.10 Median 4.20 AMH concentrations of >= 1.06 ng/mL is correlated with a better response to ovarian stimulation, produced more retrievable oocytes and higher odds of live according to Gleicher et al. Fertility and Sterility. 2010: 94:7111-5990. The current AMH test method correlates with [...] exclude an AMH-secreting ovarian tumor. Anti Mullerian Ozlhnzl74Eoj4076 12:03PMBayron Mccarty Test NameResultFlagReference Anti Mullerian Hormone6.36 ng/mL For assays employing antibodies, the possibility exists for interference by heterophile antibodies in the samples.1 1.Oswald Brunner Interferences in Immunoassays - still a threat. Clin. Chem. 2000; 46: 1175-2981. This test was developed and its performance characteristics determined by [employer]. It has not been cleared or approved by the Food and Drug Administration. Reference Range: Females 26 - 30y: 1.03 - 11.10 Median 4.20 AMH concentrations of >= 1.06 ng/mL is correlated with a better response to ovarian stimulation, produced more retrievable oocytes and higher odds of live according to Gleicher et al. Fertility and Sterility. 2010: 94:3376-1120. The current AMH test method correlates with [...] exclude an AMH-secreting ovarian tumor. Rubella IgG Arbwscgt70Nvr7211 12:03PMBayron Mccarty Test NameResultFlagReference Rubella IgG AntibodyPOSITIVE [...] TSH WITH REFLEX TO FREE T4 IF [id number] 12:03PMBayron Mccarty Test NameResultFlagReference Thyroid Stimulating Hormone, Serum2.17 mIU/LSee Below Reference Range: 0.44 - 3.98 TSH testing is performed using different testing methodology at [facility] than at other [facility]. Direct result comparisons should only be made within the same method. Varicella Zoster IgG Niihkqge72Noa5487 12:03PMBayron Mccarty Test NameResultFlagReference Varicella Zoster IgG [...] altered results in serological assays. Vitamin D 25-Idenjii30Kpd7074 12:03PMBayron Mccarty Test NameResultFlagReference Vitamin D 25-Hydroxy, Level17 ng/mLA . DEFICIENCY: < 20 NG/ML INSUFFICIENCY: 20-29 NG/ML SUFFICIENCY: 30-100 NG/ML THIS ASSAY ACCURATELY QUANTIFIES THE SUM OF VITAMIN D3, 25-HYDROXY AND VIT D2,25-HYDROXY. { 17-Hydroxyprogesterone, Bqgbe52Lbi7080 12:03PMBayron Mccarty Test NameResultFlagReference 17-Hydroxyprogesterone, Serum33 ng/dL [...] Endocrinol Metab. 1991;73:674-686; J Clin Endocrinol Metab. 1989;69;2807-0414; J Clin Endocrinol Metab. 1994;78:226-270. Pediatr Res 1988;23:525-529. MedLinePlus (accessed 10/25/13). This test was developed and its analytical performance characteristics have been determined by [place] [facility]. It has not been cleared or approved by the U.S. Food and Drug Administration. This assay has been validated pursuant to the CLIA regulations and is used for clinical purposes. DHEA Sulfate, Hypoj10Rqe7843 12:03PMBayron Mccarty Test NameResultFlagReference DHEA Sulfate, Xixnd958 ug/dL65 - 395 MATURITY-BASED REFERENCE RANGES: PUBERTAL [...] laboratory for further information. Testosterone Free + Qjzox66Piv1012 12:03PMBayron Mccarty Test NameResultFlagReference Testosterone, Total63 ng/dLH2-45 For additional information, please refer to http://education.Climeworks/faq/ TotalTestosteroneLCMSMSF AQ165 (This link is being provided for informational/ educational purposes only.) This test was developed and its analytical performance characteristics have been determined by [facility] [place], [place]. It has not been cleared or approved by the U.S. Food and Drug Administration. This assay has been validated pursuant to the CLIA regulations and is used for clinical purposes. Testosterone, Free Serum8.8 pg/mLH0.1-6.4 This test was developed and its analytical performance characteristics have been determined by [facility] [place]. It has not been cleared or approved by the U.S. Food and Drug Administration. This assay has been validated pursuant to the CLIA regulations and is used for clinical purposes. Hemoglobin [id number] 12:03PMBayron Mccarty Test NameResultFlagReference Hemoglobin A1C, Level5.5 % Diagnosis of Diabetes-Adults Non-Diabetic: < or = 5.6% Increased risk for developing diabetes: 5.7-6.4% Diagnostic of diabetes: > or = 6.5% . Monitoring of Diabetes Age (y) Therapeutic Goal (%) Adults: >18 <7.0 Pediatrics: 13-18 <7.5 7-12 <8.0 0- 6 7.5-8.5 [place] [employer]. Diabetes Care 33(S1), May 2009. Estimated Average Uvlcums489 MG/DL GC + Chlamydia By Amplified Ylwtgkrti95Zhe2918 12:03Bayron Silva Test NameResultFlagReference N.GONORRHEA,AMPLIFIEDNEG ATIVENegative SOURCE: Urine Chlamydia Trach, AmplifiedNEGATIVENegativ e Hepatitis B Surface [id number] 12:03PMBayron Mccarty Test NameResultFlagReference Hep.B Surface AgNONREACTIVESee Below Reference Range: NONREACTIVE Biotin interference may cause falsely decreased results. Patients taking a Biotin dose of up to 5 mg/day should refrain from taking Biotin for 24 hours before sample collection. Providers may contact their local laboratory for further information. Hepatitis C Antibody [id number] 12:03PMBayron Mccarty Test NameResultFlagReference Hepatitis C-AntibodyNONREACTIVESee Below Reference Range: NONREACTIVE Results from patients taking biotin supplements or receiving high-dose biotin therapy should be interpreted with caution due to possible interference with this test. Providers may contact their local laboratory for further information. HIV 1/2 ANTIGEN/ANTIBODY SCREEN WITH REFLEX TO [id number] 12:03PMBayron Mccarty Test NameResultFlagReference HIV 1/2 AG/AB SCREENNONREACTIVESee Below Reference Range: NONREACTIVE HIV Ag/Ab screen is performed using the [employer] HIV Ag/Ab Combo assay which detects the presence of HIV p24 antigen as well as antibodies to HIV-1 (Group M and O) and HIV-2. SYPHILIS SCREENING WITH [id number] 12:03PMBayron Mccarty Test NameResultFlagReference SYPHILIS TOTAL ANTIBODYNONREACTIVESee Below SOURCE: Reference Range: NONREACTIVE No significant level of Treponema pallidum antibody detected. Repeat testing in 2 to 4 weeks may be considered if early infection or incubating syphilis infection is suspected. Diagnoses/Problems Irregular menses (626.4) (N92.6) Morbid obesity (278.01) (E66.01) Orders HCG, Beta Quantitative; Status:Active; Requested for:48Rfm6700; Perform:Lab Services - Lab To Draw (Blood Test); Due:13Jul2020;Ordered; For:Irregular menses; Ordered By:Bayron Mccarty; Progesterone, Serum; Status:Active; Requested for:77Ysx2513; Perform:Lab Services - Lab To Draw (Blood [...] [facility] [phone] [place] [phone] [place] Appointment Duration:. 25 minutes; greater than [...] MD [facility] [phone] [place] [phone] [place] 1 Amended By: Bayron Mccarty; Apr 14 2020 4:50 PM ESTSignatures Electronically signed by : Bayron Mccarty MD; Apr 14 2020 4:51PM EST (Author) Normal [facility] [facility] - Procedure Visiton 1 05-28-2019 [facility] - Procedure Visit Chief Complaint pt presents [...] 1 CAPSULE EVERY 12 HOURS DAILY; Therapy: 91Stf6056 to (Evaluate:37Ekb3656) Requested for: 32Uon3250; Last Rx:68Gub4682 Ordered Rx By: Bayron Mccarty; Dispense: 5 Days ; #:10 Capsule; Refill: 0;For: Fertility testing; KEVIN = N; Verified Transmission to [place] [address]; Msg to Pharmacy: start medication the night before her procedure; Last Updated By: Cindi Lizarraga; 01/24/2020 12:08:27 PM Vitamin D 25 MCG (1000 UT) Oral Tablet; Therapy: 86Mnz6523 to Recorded Dispense: 0 Days ; #: [...] Signatures Electronically signed by : Kelle Vaz APRN-FINANCIAL OFFICER; Mar 28 2020 4:10PM EST (Author) Normal [facility] - Office Visiton 11-0 [facility] - Office Visit Chief Complaint The patient [...] is considering single parent procreation. 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 Ng in [place]. Active Problems Female infertility (628.9) (N97.9) Fertility [...] 1 CAPSULE EVERY 12 HOURS DAILY; Therapy: 88Cox1279 to (Evaluate:29Fsh7149) Requested for: 86Zka5024; Last Rx:22Ytb3161 Ordered Rx By: Bayron Mccarty; Dispense: 5 Days ; #:10 Capsule; Refill: 0; For: Fertility testing; KEVIN = N; Verified Transmission to [place] [address]; Msg to Pharmacy: start medication the night before her procedure; Last Updated By: ElhamGenKyoTex; 01/24/2020 12:08:27 PM Vitamin D 25 MCG (1000 UT) Oral Tablet; Therapy: 12Ywn4999 to Recorded Dispense: 0 Days ; #: Sufficient Tablet; Refill: 0; KEVIN = N; Record; Last Updated By: Breezy Jasso; 2020 1:15:24 PM Vitals Vital Signs Recorded: 13Mar2020 01:08PM Heart Rate96 Hbpghrhl946 Xueubcayc33 Height5 ft 6 in Clykpu310 lb BMI Tsxfppqnfs32.91 BSA Calculated2.39 Tobacco Useb) No Fall Screeninga) No falls within the last year [id number] Gravida1 Para0 Pain Scale0 Diagnoses/Problems Morbid obesity [...] consultation of which greater than 50% was qebb-wv-spfm counseling. Weight loss prior to conception is [...] MD; Jun 12 2020 4:50PM EST [facility] ANTI MULLERIAN HORMONEon ANTI MULLERIAN HORMONE 6.36 ng/mL Normal [facility] Comment on above: Result Comment: For assays employing antibodies, the possibility exists for interference by heterophile antibodies in the samples.1 1.Oswald Crews. Interferences in Immunoassays - still a threat. Clin. Chem. 2000; 46: 8433-5842. This test was developed and its performance characteristics determined by [employer]. It has not been cleared or approved by the Food and Drug Administration. Reference Range: Females 26 - 30y: 1.03 - 11.10 Median 4.20 AMH concentrations of >= 1.06 ng/mL is correlated with a better response to ovarian stimulation, produced more retrievable oocytes and higher odds of live according to Carey et al. Fertility and Sterility. 2010: 94:3813-0782. The current AMH test method correlates with [...] ovarian tumor. Performed By: #### A #### [employer] [address] [place] [address] [phone] 17-HYDROXYPROGESTERONEon 17-HYDROXYPROGESTERON E 33 ng/dL Normal [facility] Comment on above: Result Comment: Unable to [...] Endocrinol Metab. 1991;73:674-686; J Clin Endocrinol Metab. 1989;69;0763-4481; J Clin Endocrinol Metab. 1994;78:226-270. Pediatr Res 1988;23:525-529. MedLinePlus (accessed 10/25/13). This test was developed and its analytical performance characteristics have been determined by [facility] [place], [place]. It has not been cleared or approved by the U.S. Food and Drug Administration. This assay has been validated pursuant to the CLIA regulations and is used for clinical purposes. Performed By: #### 1 7[facility] #### [facility] [address] [place] [address] TESTOST,FREE AND TOTALon TESTOSTERONE TOT.LC/MS/MS 63 ng/dL High 2-45 [facility] Comment on above: Result Comment: For additional information, please refer to http://education.[employer]/faq/ VkppcZmtmvqshtpndQFBTQEEID505 (This link is being provided for informational/ educational purposes only.) This test was developed and its analytical performance characteristics have been determined by [facility] [place]. It has not been cleared or approved by the U.S. Food and Drug Administration. This assay has been validated pursuant to the CLIA regulations and is used for clinical purposes. Performed By: #### G [facility] #### [facility] [address] [place] [address] TESTOSTERONE,FREE 8.8 pg/mL High 0.1-6.4 [facility] Comment on above: Result Comment: This test was developed and its analytical performance characteristics have been determined by [facility] [place]. It has not been cleared or approved by the U.S. Food and Drug Administration. This assay has been validated pursuant to the CLIA regulations and is used for clinical purposes. Performed By: #### [facility] #### [facility] [address] [address] DHEA SULFATEon 01-25-2020 DHEA SULFATE 214 ug/dL Normal 65 - 395 [facility] Comment on above: Result Comment: JOANNA MALDONADO-BASED [...] information. Performed By: #### G CCHA #### [facility] [address] [place], [place] GC + CHLAMYDIA BY AMPLIFIED DETECTIONon 01-25-2020 CHLAMYDIA TRACH.,AMPLIFIED Negative Normal Negative [facility] Comment on above: Performed By: #### G CCHA #### [facility] [address] [place], [place] N.GONORRHEA,AMPLIFIED Negative Normal Negative [facility] Comment on above: Performed By: #### G CCHA #### [facility] [address] [place] [address] HEPATITIS B SURFACE AGon HEP.B SURFACE AG NONREACTIVE Normal NONREACTIVE [facility] Comment on above: Result Comment: Biot in interference may cause falsely decreased results. Patients taking a Biotin dose of up to 5 mg/day should refrain from taking Biotin for 24 hours before sample collection. Providers may contact their local laboratory for further information. Performed By: #### G CCHA #### [facility] [address] [place], [place] HEPATITIS C ABon 01-25-2020 HEPATITIS C AB NONREACTIVE Normal NONREACTIVE [facility] Comment on above: Result Comment: Resu lts from patients taking biotin supplements or receiving high-dose biotin therapy should be interpreted with caution due to possible interference with this test. Providers may contact their local laboratory for further information. Performed By: #### H CVAB #### [facility] [address] [place], [place] HIV ANTIGEN/ANTIBODY SCREENo n 01-25-2020 HIV AG/AB SCREEN NONREACTIVE Normal NONREACTIVE [facility] Comment on above: Result Comment: HIV Ag/Ab screen is performed using the [employer] HIV Ag/Ab Combo assay which detects the presence of HIV p24 antigen as well as antibodies to HIV-1 (Group M and O) and HIV-2. Performed By: #### G CCHA #### [facility] [address] [place], [place] RUBELLA IGG ABon 01-25-2020 RUBELLA IGG AB Positive Normal [facility] [place] Comment on above: Result Comment: INTE RPRETATIVE [...] assays. Performed By: #### R UBIG #### [facility] [address] [place] [id number] SYPHILIS SCREENING WITH REFL EXon 01-25-2020 SYPHILIS TOTAL AB NONREACTIVE Normal NONREACTIVE [facility] Comment on above: Result Comment: No s ignificant level of Treponema pallidum antibody detected. Repeat testing in 2 to 4 weeks may be considered if early infection or incubating syphilis infection is suspected. Performed By: #### S YPHR #### [facility] [address] [place] [address] TSH WITH REFLEX TO FREE T4 I F ABNORMALon 01-25-2020 TSH Qn 2.17 m[IU]/L Normal 0.44 - 3.98 [facility] Comment on above: Result Comment: TSH testing is performed using different testing methodology at [facility] than at other [facility]. Direct result comparisons should only be made within the same method. Performed By: #### G CCHA #### [facility] [address] [place] [address] VARICELLA ZOSTER IGG ABon VARICELLA ZOSTER IGG AB Negative Normal NEGATIVE [facility] Comment on above: Result Comment: INTE RPRETATIVE [...] assays. Performed By: #### V ARZG #### [facility] [address] [place] [address] VITAMIN D, 25-HYDROXYon 01-10 VITAMIN D, 25-HYDROXY 17 ng/mL Abnormal [facility] Comment on above: Result Comment: . DEFICIENCY: < 20 NG/ML INSUFFICIENCY: 20-29 NG/ML SUFFICIENCY: 30-100 NG/ML THIS ASSAY ACCURATELY QUANTIFIES THE SUM OF VITAMIN D3, 25-HYDROXY AND VIT D2,25-HYDROXY. { Performed By: #### G CCHA #### [facility] [address] [place] [address] GC + CHLAMYDIA BY AMPLIFIED DETECTIONon 01-24-2020 Lab Specimen Source Urine Normal [facility] Comment on above: Performed By: #### G CCHA #### [facility] [address] [place] [address] HEMOGLOBIN A1Con 01-24-2020 HbA1c (Bld) [Mass fraction] 5.5 % Normal [facility] Comment on above: Result Comment: Diag nosis of Diabetes-Adults Non-Diabetic: < or = 5.6% Increased risk for developing diabetes: 5.7-6.4% Diagnostic of diabetes: > or = 6.5% . Monitoring of Diabetes Age (y) Therapeutic Goal (%) Adults: >18 <7.0 Pediatrics: 13-18 <7.5 7-12 <8.0 0- 6 7.5-8.5 [place] [employer]. Diabetes Care 33(S1), May 2009. Performed By: #### H BA1E #### [facility] [address] [place] [address] HbA1c (Bld) [Mass fraction] 111 MG/DL Normal [facility] Comment on above: Performed By: #### H BA1E #### [facility] [address] [place] [address] [facility] - Office Visiton 01-10 [facility] Office Visit Chief Complaint 29 year [...] is currently incarcerated, and will be in halfway until 2026. She is interested in pursuing fertility testing today, and pending these results would potentially be interested in single-parent procreation with donor sperm. She is not currently sexually active. She has a history of ectopic in 2011, which was treated with laparoscopic left salpingectomy in [facility]. 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: STDs: Yes, remote history of gonorrhea [...] PM Vitals Vital Signs Recorded: 24Jan2020 11:13AM Ymrksjqngbz40.7 F Heart Yllo779 Vuobjcfa680 Pdueqqtec03 Height5 ft 6 in Jjqknz969 lb BMI Viorgwvgfi69.13 BSA Calculated2.35 Tobacco Useb) No Fall Screeninga) No falls within the last year [id number] Gravida1 Para0 Pain Scale0 Diagnoses/Problems Female infertility (628.9) (N97.9) Fertility testing (V26.21) (Z31.41) Morbid obesity (278.01) (E66.01) Irregular menses (626.4) (N92.6) Screening for STD (sexually transmitted disease) (V74.5) (Z11.3) *Orders Anti Mullerian Hormone; Status:Active; Requested for:24Jan2020; Perform:Lab Services - Lab To Draw (Non-Blood Test); Due:55Mvh1641;Ordered; For:Female infertility, Fertility testing, Irregular menses, Morbid obesity; Ordered By:Bayron Mccarty; Start: Doxycycline Monohydrate 100 MG Oral Capsule; TAKE 1 CAPSULE EVERY 12 HOURS DAILY Rx By: Bayron Mccarty; Dispense: 5 Days ; #:10 Capsule; Refill: 0; For: Fertility testing; KEVIN = N; Verified Transmission to [place] [address]; Msg to Pharmacy: start medication the night before her procedure; Last Updated By: ElhamGenKyoTex; 01/24/2020 12:08:27 PM Maternal Medicine Referral Evaluation and Treatment Evaluate AND Treat Status: Hold For - Scheduling Requested for: 24Jan2020 Ordered; For: Morbid obesity; Ordered By: Bayron Mccarty Performed: Due: 01Qjv4859 17-Hydroxyprogesterone, Serum; Status:Active; Requested for:95Glg5173; Perform:Lab Services - Lab To Draw (Blood Test); Due:81Abx6895;Ordered; For:Screening for STD (sexually transmitted disease); Ordered By:Bayron Mccarty; DHEA Sulfate, Serum; Status:Active; Requested for:24Jan2020; Perform:Lab Services - Lab To Draw (Blood Test); Due:91Eco2528;Ordered; For:Screening for STD (sexually transmitted disease); Ordered By:Bayron Mccarty; Hemoglobin A1C; Status:Active; Requested for:24Jan2020; Perform:Lab Services - Lab To Draw (Blood Test); Due:37Rrz8313;Ordered; For:Screening for STD (sexually transmitted disease); Ordered By:Bayron Mccarty; Rubella IgG Antibody; Status:Active; Requested for:24Jan2020; Perform:Lab Services - Lab To Draw (Blood Test); Due:57Zip5472;Ordered; For:Screening for STD (sexually transmitted disease); Ordered By:Bayron Mccarty; Testosterone Free + Total; Status:Active; Requested for:24Jan2020; Perform:Lab Services - Lab To Draw (Blood Test); Due:20Wys8544;Ordered; For:Screening for STD (sexually transmitted disease); Ordered By:Bayron Mccarty; TSH WITH REFLEX TO FREE T4 IF ABNORMAL; Status:Active; Requested for:24Jan2020; Perform:Lab Services - Lab To Draw (Blood Test); Due:01Tal5046;Ordered; For:Screening for STD (sexually transmitted disease); Ordered By:Bayron Mccarty; Ultrasound Pelvis Transvaginal; Status:Hold For - Scheduling; Requested for:24Jan2020; Perform:[facility]; Order Comments:will call with menses to schedule; Due:23Apr2020;Ordered; For:Screening for STD (sexually transmitted disease); Ordered By:Bayron Mccarty; Radiologist to Determine Optimal Study : Y What are the patient's signs and symptoms? : fert testing Varicella Zoster IgG Antibody; Status:Active; Requested for:24Jan2020; Perform:Lab Services - Lab To Draw (Blood Test); Due:61Uly8325;Ordered; For:Screening for STD (sexually transmitted disease); Ordered By:Bayron Mccarty; Vitamin D 25-Hydroxy; Status:Active; Requested for:24Jan2020; Perform:Lab Services - Lab To Draw (Blood Test); Due:58Vrs5252;Ordered; For:Screening for STD (sexually transmitted disease); Ordered By:Bayron Mccarty; Xray Hysterosalpingogram; Status:Hold For - Scheduling; Requested for:31Uxn1431; Perform:[facility]; Order Comments:will call with menses to schedule. schedule between CD5-12. start doxycycline night prior to procedure; Due:54Nbq9261;Ordered; For:Screening for STD (sexually transmitted disease); Ordered By:Bayron Mccarty; Radiologist to Determine Optimal Study : Y What are the patient's signs and symptoms? : fert testing Tobacco Use Screening; Status:Complete; Done: 66Zct2151 Perform:Not Applicable;Ordered; For:SocHx: Never a smoker; Ordered [...] for Doxycycline sent to her home pharmacy ([facility] in [place]) [ ] Day 3 FSH, LH, E2 [x] AMH [x] TSH [x] Prolactin [x] Testosterone, DHEAS [x] HgA1C [x] STD screening [x ] Preconceptual screening including Rubella,Varicella, Blood type [ ] Genetic Screen with [employer] - will consider [ ] Take vitamins [x] Return to see COMPLETIONS ENGINEER after workup complete to discuss management plan [...] REFL EXon 01-24-2020 Lab Specimen Source Normal [facility] Comment on above: Performed By: #### S YPHR #### [facility] [address] [place] [address] Performed By: #### Jovany ARZG #### [facility] [address] [place] [address] Performed By: #### R UBIG #### [facility] [address] [place] [address] Vital Signs Date Time Vital Sign Value Performing Clinician Facility 05-03-2024 15:11-0500 Body mass index (BMI) [Ratio] 49.09 kg/m2 Mena CARRILLO Work Phone: [facility] 05-03-2024 15:11-0500 Body weight 137.95 kg Mena Davenport PA Work Phone: [facility] 05-03-2024 15:11-0500 Diastolic blood pressure 70 mm[Hg] Mena Davenport PA Work Phone: [facility] 05-03-2024 15:11-0500 Systolic blood pressure 120 mm[Hg] Mena Marissa PA Work Phone: [facility] 04-22-2024 09:51-0500 Body mass index (BMI) [Ratio] 49.45 kg/m2 Tacho Shon DO Work Phone: [facility] 04-22-2024 09:51-0500 Body weight 138.98 kg Tacho Shon DO Work Phone: [facility] 04-22-2024 09:51-0500 Diastolic blood pressure 80 mm[Hg] Tacho Shon DO Work Phone: [facility] 04-22-2024 09:51-0500 Systolic blood pressure 130 mm[Hg] Tacho Shon DO Work Phone: [facility] 04-06-2024 14:10-0500 Body mass index (BMI) [Ratio] 48.58 kg/m2 Mena Marissa PA Work Phone: [facility] 04-06-2024 14:10-0500 Body weight 136.53 kg Mena Marissa PA Work Phone: [facility] 04-06-2024 14:10-0500 Diastolic blood pressure 80 mm[Hg] Mena Marissa PA Work Phone: [facility] 04-06-2024 14:10-0500 Systolic blood pressure 128 mm[Hg] Mena Davenport PA Work Phone: [facility] 03-22-2024 14:14-0500 Body mass index (BMI) [Ratio] 48.92 kg/m2 Tacho Shon DO Work Phone: [facility] 03-22-2024 14:14-0500 Body weight 137.49 kg Tacho Shon DO Work Phone: [facility] 03-22-2024 14:14-0500 Diastolic blood pressure 84 mm[Hg] Tacho Shon DO Work Phone: [facility] 03-22-2024 14:14-0500 Systolic blood pressure 126 mm[Hg] Tacho Shon DO Work Phone: [facility] 03-05-2024 23:11-0400 Diastolic blood pressure 78 mm[Hg] [facility] Work Phone: [facility] 03-05-2024 23:11-0400 Heart rate 90 /min [facility] Work Phone: [facility] 03-05-2024 23:11-0400 Respiratory rate 18 /min Services [facility] Work Phone: [facility] 03-05-2024 23:11-0400 SaO2% (BldA) [Mass fraction] 96 % [facility] Work Phone: [facility] 03-05-2024 23:11-0400 Systolic blood pressure 136 mm[Hg] [facility] Work Phone: [facility] 03-05-2024 19:59-0400 Body temperature 98.1 [degF] [facility] Work Phone: [facility] 03-05-2024 19:58-0400 Body height 167.64 cm [facility] Work Phone: [facility] 03-05-2024 19:58-0400 Body weight 136.55 kg [facility] Work Phone: [facility] 02-26-2024 19:50-0400 Body height 167.64 cm [facility] Work Phone: [facility] 02-26-2024 19:50-0400 Body temperature 97.8 [degF] [facility] Work Phone: [facility] 02-26-2024 19:50-0400 Body weight 136.98 kg Services [employer] [facility] Work Phone: [facility] 02-26-2024 19:50-0400 Diastolic blood pressure 91 mm[Hg] Services [employer] [facility] Work Phone: [facility] 02-26-2024 19:50-0400 Heart rate 103 /min Services [employer] Work Phone: [facility] 02-26-2024 19:50-0400 Respiratory rate 16 /min Services [facility] [employer] Work Phone: [facility] 02-26-2024 19:50-0400 SaO2% (BldA) [Mass fraction] 96 % Services [facility] [employer] Work Phone: [facility] 02-26-2024 19:50-0400 Systolic blood pressure 144 mm[Hg] Services [facility] Work Phone: [facility] 02-23-2024 14:01-0400 Body mass index (BMI) [Ratio] 48.76 kg/m2 Mena Ann PA Work Phone: [facility] 02-23-2024 14:01-0400 Body weight 137.04 kg Mena Marissa PA Work Phone: [facility] 02-23-2024 14:01-0400 Diastolic blood pressure 82 mm[Hg] Mena Marissa PA Work Phone: [facility] 02-23-2024 14:01-0400 Systolic blood pressure 128 mm[Hg] Mena Davenport PA Work Phone: [facility] 01-20-2024 13:58-0400 Body mass index (BMI) [Ratio] 48.1 kg/m2 Tacho Shon DO Work Phone: [facility] 01-20-2024 13:58-0400 Body weight 135.17 kg Tacho Shon DO Work Phone: [facility] 01-20-2024 13:58-0400 Diastolic blood pressure 74 mm[Hg] Tacho Shon DO Work Phone: [facility] 01-20-2024 13:58-0400 Systolic blood pressure 122 mm[Hg] Tacho Menendez DO Work Phone: [facility] 10-06-2023 17:42-0400 Body height 167.64 cm Services [facility] Work Phone: [facility] 10-06-2023 17:42-0400 Body temperature 98.3 [degF] Services [facility] Work Phone: [facility] 10-06-2023 17:42-0400 Body weight 134 kg Services [facility] Work Phone: [facility] 10-06-2023 17:42-0400 Diastolic blood pressure 94 mm[Hg] Services [facility] Work Phone: [facility] 10-06-2023 17:42-0400 Heart rate 98 /min Services [facility] Work Phone: [facility] 10-06-2023 17:42-0400 Respiratory rate 18 /min Services [facility] Work Phone: [facility] 10-06-2023 17:42-0400 SaO2% (BldA) [Mass fraction] 100 % Services [facility] Work Phone: [facility] 10-06-2023 17:42-0400 Systolic blood pressure 142 mm[Hg] Services [facility] Work Phone: [facility] 09-17-2023 14:22-0400 Body height 167.[address] [facility] 09-17-2023 14:22-0400 Body mass index (BMI) [Ratio] 47.61 kg/m2 Anna Ortiz RD [facility] 09-17-2023 14:22-0400 Body weight 133.[address] [facility] 08-20-2023 13:05-0400 Body height 167.6 cm Tonya Senior APRN.[employer] Work Phone: [facility] 08-20-2023 13:05-0400 Body weight 133.81 kg Tonya Senior [employer] Work Phone: [facility] 08-07-2023 15:23-0400 Body height 168.91 cm Services [facility] Work Phone: [facility] 08-07-2023 15:23-0400 Body mass index (BMI) [Ratio] 46.9 kg/m2 Services [facility] Work Phone: [facility] 08-07-2023 15:23-0400 Body weight 133.89 kg Services [facility] Work Phone: [facility] 08-07-2023 15:23-0400 Diastolic blood pressure 83 mm[Hg] Services [facility] Work Phone: [facility] 08-07-2023 15:23-0400 Heart rate 101 /min Services [facility] Work Phone: [facility] 08-07-2023 15:23-0400 Respiratory rate 18 /min Services [facility] Work Phone: [facility] 08-07-2023 15:23-0400 SaO2% (BldA) [Mass fraction] 98 % Services [facility] Work Phone: [facility] 08-07-2023 15:23-0400 Systolic blood pressure 120 mm[Hg] Services [facility] Work Phone: [facility] 06-13-2023 11:00-0500 Body height 168.28 cm Nicholas Michaels Other [facility] 06-13-2023 11:00-0500 Body mass index (BMI) [Ratio] 48.53 kg/m2 Nicholas Michaels Other [employer] Other 06-13-2023 11:00-0500 Body weight 137.44 kg Nicholas [employer] Other [employer] Other 06-13-2023 11:00-0500 Body weight 137.43 kg Services [facility] Work Phone: [facility] 06-13-2023 11:00-0500 Diastolic blood pressure 82 mm[Hg] Nicholas Michaels Other [facility] 06-13-2023 11:00-0500 Respiratory rate 18 /min Nicholas Michaels Other [employer] Other 06-13-2023 11:00-0500 SaO2% (BldA) [Mass fraction] 97 % Nicholas Michaels Other [employer] Other 06-13-2023 11:00-0500 Systolic blood pressure 120 mm[Hg] Nicholas Michaels Other [facility] 01-08-2023 10:45-0400 Body height 168.28 cm Nicholas Michaels Other [employer] Other 01-08-2023 10:45-0400 Body mass index (BMI) [Ratio] 52.89 kg/m2 Nicholas Michaels Other [employer] Other 01-08-2023 10:45-0400 Body weight 149.78 kg Nicholas Michaels Other [employer] Other 01-08-2023 10:45-0400 Diastolic blood pressure 81 mm[Hg] Nicholas Michaels Other [employer] Other 01-08-2023 10:45-0400 Respiratory rate 18 /min Nicholas Michaels Other [employer] Other 01-08-2023 10:45-0400 SaO2% (BldA) [Mass fraction] 97 % Nicholas Michaels Other [employer] Other 01-08-2023 10:45-0400 Systolic blood pressure 122 mm[Hg] Nicholas Michaels Other [facility] [employer] Other 06-18-2022 16:57-0500 Body height 167.64 cm [facility] Work Phone: [facility] 06-18-2022 16:57-0500 Body weight 157 kg [facility] Work Phone: [facility] 06-18-2022 16:56-0500 Body temperature 98.3 [degF] [facility] Work Phone: [facility] 06-18-2022 16:56-0500 Diastolic blood pressure 67 mm[Hg] [facility] Work Phone: [facility] 06-18-2022 16:56-0500 Heart rate 95 /min [facility] Work Phone: [facility] 06-18-2022 16:56-0500 Respiratory rate 20 /min [facility] Work Phone: [facility] 06-18-2022 16:56-0500 SaO2% (BldA) [Mass fraction] 97 % [facility] Work Phone: [facility] 06-18-2022 16:56-0500 Systolic blood pressure 158 mm[Hg] [facility] Work Phone: [facility] 12-02-2021 20:26-0400 Body height 167.64 cm [facility] Work Phone: [facility] 12-02-2021 20:26-0400 Body temperature 98.2 [degF] [facility] Work Phone: [facility] 12-02-2021 20:26-0400 Body weight 144.24 kg [facility] Work Phone: [facility] 12-02-2021 20:26-0400 Diastolic blood pressure 89 mm[Hg] [facility] Work Phone: [facility] 12-02-2021 20:26-0400 Heart rate 104 /min Services [facility] Work Phone: [facility] 12-02-2021 20:26-0400 Respiratory rate 20 /min [facility] Work Phone: [facility] 12-02-2021 20:26-0400 SaO2% (BldA) [Mass fraction] 96 % [facility] Work Phone: [facility] 12-02-2021 20:26-0400 Systolic blood pressure 156 mm[Hg] [facility] Work Phone: [facility] 06-19-2020 11:10-0500 BMI (Body Mass Index) 46.65 kg/m2 Bayron Bibiana FX-WAXLP-Yzngwt 310 [facility] Work Phone: 06-19-2020 11:10-0500 Body weight 131.09 kg Bayron Bibiana IV-GYKTI-Imujbx 310 IVF Work Phone: 06-19-2020 11:10-0500 BSA (Body Surface Area) 2.34 m2 Bayron Bibiana NK-PULQJ-Zgdopk 310 IVF Work Phone: 06-19-2020 11:10-0500 Height 167.64 cm Bayron Bibiana UC-GIODU-Riktvp 310 IVF Work Phone: 06-19-2020 11:10-0500 1 1 Bayron Bibiana NS-DAJYW-Lnoetu 310 IVF Work Phone: Comment on above: 06-19-2020 11:10-0500 0 1 Bayron Bibiana JO-MPBKY-Pfsuwc 310 IVF Work Phone: Comment on above: Para Pain Scale Encounters Encounter Date Encounter Type Care Provider Facility Start: 05-03-2024 End: 05-03-2024 Office outpatient visit 15 minutes Mena CARRILLO Work Phone: [facility] Comment on above: 35 weeks gestation o f ; Third trimester Start: 05-03-2024 End: 05-03-2024 Bamboo flowsheet Mena ACRRILLO Work Phone: [facility] Start: 05-03-2024 End: 05-03-2024 Bamboo flowsheet Mena CARRILLO Work Phone: [facility] Start: 05-03-2024 End: 05-03-2024 Clinisync Result Encounter Tacho Shon DO Work Phone: [facility] External Department Unsolicited Start: 04-27-2024 End: 04-27-2024 ambulatory TACHO R SHON [facility] Start: 04-22-2024 End: 04-22-2024 Bamboo flowsheet Tacho Shon DO Work Phone: [facility] Start: 04-22-2024 End: 04-22-2024 Bamboo [...] 03-30-2024 End: 03-30-2024 ambulatory TACHO R SHON [facility] Start: 03-22-2024 End: 03-22-2024 Bamboo flowsheet [...] Clinisync Result Encounter Mena CARRILLO Work Phone: [facility] External Department Unsolicited Start: 03-19-2024 End: 03-19-2024 Clinisync Result Encounter Mena CARRILLO Work Phone: [facility] Unsolicited Start: 03-05-2024 End: 03-05-2024 Emergency department patient visit Services [facility] Work Phone: [facility] Work Phone: Start: 03-01-2024 End: 03-01-2024 Orders Only Veda Hayes RN Maternal- Medic ine at [facility] Comment on above: Encounter for follow -up ultrasound of anatomy (Primary Dx); History of pre-eclampsia in prior , currently ; History of delivery, currently ; Obesity affecting in second trimester, unspecified obesity type Start: 02-26-2024 End: 02-26-2024 Emergency department patient visit Services [facility] Work Phone: [facility] Work Phone: Start: 02-23-2024 End: 02-23-2024 Bamboo flowsheet Mena CARRILLO Work Phone: [facility] Start: 02-23-2024 End: 02-23-2024 Bamboo flowsheet Mnea CARRILLO Work Phone: [facility] Start: 02-23-2024 End: 02-23-2024 Office outpatient visit 15 minutes Mena CARRILLO Work Phone: [facility] Comment on above: 25 weeks gestation o f ; Second trimester ; Diabetes mellitus screening; size inconsistent with dates; H/O premature delivery Start: 02-23-2024 End: 02-23-2024 ambulatory MENA ANN Not Available Start: 02-17-2024 End: 02-17-2024 ambulatory TACHO R [facility] Start: 01-26-2024 End: 01-26-2024 Clinisync Result Encounter Tacho Shon DO Work Phone: [facility] External Department Unsolicited Start: 01-26-2024 End: 01-26-2024 Clinisync Result Encounter Tacho Shon DO Work Phone: [facility] External [facility] Unsolicited Start: 01-20-2024 End: 01-20-2024 Office outpatient visit 15 minutes Tacho Shon DO Work Phone: [facility] Comment on above: Second trimester pre gnancy Start: 01-20-2024 End: 01-20-2024 ambulatory TACHO SHON Not Available Start: 01-19-2024 End: 01-19-2024 ambulatory TACHO R [facility] Start: 12-23-2023 End: 12-23-2023 ambulatory MENA ANN Not Available Start: 11-25-2023 End: 11-25-2023 ambulatory TACHO SHON Not Available Start: 10-30-2023 End: 10-30-2023 ambulatory TACHO SHON Not Available Start: 10-09-2023 End: 10-09-2023 ambulatory LATONIA GREENE Facility:[facility] Start: 10-06-2023 End: 10-06-2023 Emergency department patient visit Services [facility] Work Phone: [facility] Work Phone: Start: 09-17-2023 End: 09-17-2023 ambulatory ANNASARANYA ORTIZ Facility:[facility] Start: 09-17-2023 End: 09-17-2023 Nutrition therapy Anna Ortiz RD Nutrition Therapy Comment on above: Obesity, Class III, BMI 40-49.9 (morbid obesity) (HCC) (Primary Dx); Dietary counseling Start: 09-17-2023 End: 09-17-2023 Telemedicine consultation with patient Anna Ortiz RD Nutrition Therapy Start: 09-15-2023 Admission to [facility] Tonya Senior PHD INTERN.FINANCIAL OFFICER Work Phone: General Surgery Comment on above: Results Start: 09-15-2023 E-mail encounter dena torres caregiver Tonya Senior PHD INTERN.FINANCIAL OFFICER Work Phone: General Surgery Start: 09-11-2023 Telephone encounter Tonya Senior PHD INTERN.FINANCIAL OFFICER Work Phone: General Surgery Comment on above: Results Start: 09-08-2023 End: 09-08-2023 ambulatory TONYA SENIOR Facility:[facility] Start: 09-05-2023 End: 09-05-2023 ambulatory TONYA SENIOR Facility:[facility] Start: 09-01-2023 End: 09-02-2023 ambulatory LATONIA [...] [facility] Tonya Senior PHD INTERN.FINANCIAL OFFICER Work Phone: General Surgery Comment on above: Welcome to Bariatric Surgery Start: 08-20-2023 E-mail encounter fro m caregiver Tonya Senior FRED.FINANCIAL OFFICER Work Phone: [place] [phone] Start: 08-20-2023 End: 08-20-2023 ambulatory Tonya Senior FRED.FINANCIAL OFFICER Work Phone: General Surgery Comment on above: Body mass index (BMI ) of 50-59.9 in adult (HCC) (Primary Dx); Angel's thyroiditis; High blood cholesterol Start: 08-20-2023 End: 08-20-2023 Telemedicine consultation with patient Tonya Senior FRED.FINANCIAL OFFICER Work Phone: [facility] Start: 08-07-2023 End: 08-07-2023 ambulatory [facility] Work Phone: [facility] Work Phone: Start: 08-07-2023 End: 08-07-2023 Patient encounter procedure [facility] Work Phone: [facility] Work Phone: Start: 06-13-2023 Follow-up encounter Nicholas [facility] Start: 06-13-2023 Registered Recurring [facility] Work Phone: [facility] Work Phone: Start: 06-13-2023 End: 06-13-2023 ambulatory Nicholas Michaels [employer] Other Start: 06-13-2023 End: 06-13-2023 Patient encounter procedure [facility] [employer] Work Phone: [facility] Start: 01-08-2023 End: 01-08-2023 ambulatory Nicholas Michaels Other [employer] Other Start: 01-08-2023 Nutrition therapy Nicholas Michaels [facility] Start: 06-18-2022 End: 06-18-2022 Emergency department patient visit [facility] Work Phone: [facility] Work Phone: Start: 06-03-2022 End: 06-03-[address] TACHO MENENDEZ Facility:[facility] Start: 12-02-2021 End: 12-02-2021 Emergency department patient visit Services [facility] Work Phone: [facility] Start: 07-08-2020 Patient encounter procedure Bayron Mccarty ZH-LDJRS-Anopfk 310 IVF Work Phone: Start: 07-05-2020 Patient encounter procedure Bayron Mccarty ZQ-ENRIS-Qlldqs 310 IVF Work Phone: Start: 06-19-2020 Patient encounter procedure Bayron Mccarty RU-VURKG-Eajhsa 310 IVF Work Phone: Start: 04-14-2020 Patient encounter procedure Bayron Mccarty YD-RVMDO-Vybema 310 IVF Work Phone: Start: 03-28-2020 Patient encounter procedure Bayron Mccarty QF-WSHLW-Ugqlxa 310 IVF Work Phone: Start: 2020 Patient encounter procedure Bayron Mccarty KW-RZUTM-Xfebgy 310 IVF Work Phone: Start: 01-24-2020 Patient encounter procedure Bayron PAEZ-OBGYN-Risman 310 IVF Work Phone: Start: 08-01-2017 End: 08-02-2017 Ambulatory Agustin Patton Facility:CD:[id number] Start: 07-14-2017 End: 07-15-2017 Ambulatory Agustin Patton Facility:CD:[id number] Procedures Date Procedure Procedure Detail Performing Clinician Start: 05-03-2024 ALL THYROID STIM HORMONE Tacho Menendez DO Work Phone: Start: 05-03-2024 Urnls dip stick/tabl et rgnt non-auto w/o micrscp Mena Ann PA Work Phone: Start: 04-22-2024 Urnls dip stick/tabl et rgnt non-auto w/o micrscp Tacho Menendez DO Work Phone: Start: 04-06-2024 Urnls dip stick/tabl et rgnt non-auto w/o micrscp Mena CARRILLO Work Phone: Start: 03-22-2024 Urnls dip stick/tabl et rgnt non-auto w/o micrscp Tacho Menendez DO Work Phone: Start: 03-19-2024 ALL CBC WITH AUTO DIFF Mena CARRILLO Work Phone: Start: 03-05-2024 Plain chest X-ray Servi [email or web address] [email or web address] [facility] Work Phone: Start: 03-05-2024 Respiratory Panel (PCR) Services [facility] Work Phone: Start: 03-05-2024 Streptococcus pyogen es antigen assay [facility] Work Phone: Start: 02-26-2024 Streptococcus pyogen es antigen assay [facility] Work Phone: Start: 02-23-2024 Urnls dip stick/tabl et rgnt non-auto w/o micrscp Mena CARRILLO Work Phone: Start: 01-26-2024 ALL THYROID STIM HORMONE Tacho Menendez [employer] Work Phone: Start: 01-20-2024 Urnls dip stick/tabl et rgnt non-auto w/o micrscp Tacho Menendez [facility] Work Phone: Start: 12-23-2023 Microscopic observat ion [Identifier] in Cervix by Cyto stain Tacho Menendez DO Work Phone: Start: 07-06-2020 Antibody screen Comment on above: Performed By: #### T +S #### [facility] [address] [place] [address] Start: 07-05-2020 IO Ultrasound, limit ed pelvic, follicle monitoring Bayron Mccarty Start: 06-26-2020 IO Ultrasound, limit ed pelvic, follicle monitoring Bayron Mccarty Start: 05-10-2020 Assay of progesterone J oseptiffanie Mccarty Adenoid excision Bayron wallace Cholecystectomy Bayron Chen ey SARS Antigen (LFIA) Services [facility] Work Phone: Plan of Treatment Date Care Activity Detail Author Start: 12-22-2028 Screening for malign ant neoplasm of cervix [facility] Start: 12-22-2026 Screening for malign ant neoplasm of cervix Pap Smear [facility] [employer] Start: 03-01-2025 End: 03-01-2025 US MFM with or without consult US MFM with or without consult Imaging Routine Encounter for follow-up ultrasound of anatomy History of pre-eclampsia in prior , currently History of delivery, currently Obesity affecting in second trimester, unspecified obesity type Expected: 03/01/2025 (Approximate), Expires: [facility] Comment on above: Expected: 03/01/2025 (Approximate), Expires: 03/01/2025 Start: 01-18-2025 Adult BMI Screening Adult BMI Screen ing [facility] Start: 01-18-2025 Tobacco Screening Tobacco Screening [facility] Start: 05-17-2024 End: 05-17-2024 Patient encounter procedure 05/17/2024 3:00 PM EST Routine [facility] [address] [place] [phone] Tacho Menendez DO [address] [place] [address] [facility] Start: 05-03-2024 End: 05-03-2024 Patient encounter procedure 05/03/2024 2:50 PM EST Routine [facility] [address] [place] [phone] Mena Ann PA [address] [place] [address] [facility] Start: 04-22-2024 End: 04-22-2025 [...] Routine [facility] [address] [place] [phone] Mena Ann PA [address] [place], [place] [id number] [facility] Start: 03-30-2024 End: 03-30-2024 Patient encounter procedure 03/30/2024 2:45 PM EST Appointment [facility] - Ultrasound [address] [place] [phone] [facility] - Ultrasound Start: 03-22-2024 End: 03-22-2024 Patient encounter procedure 03/22/2024 1:50 PM EST Routine [facility] [address] [place] [address] Tacho Menendez DO [address] [place], [place] [id number] [facility] Start: 03-22-2024 End: 03-22-2024 Professional / ancillary services management 03/22/2024 1:00 PM EST Ancillary Procedure [facility] [address] [place] [phone] [facility] Start: 03-16-2024 End: 03-16-2024 Patient encounter procedure 03/16/2024 1:30 PM EST Routine [facility] [address] [place] [phone] Tacho Menendez DO [address] [place], [place] [id number] [facility] Start: 02-23-2024 End: 02-22-2025 CBC panel - Blood by Automated count CBC Lab Routine Diabetes mellitus screening Expected: 02/23/2024 (Approximate), Expires: 02/22/2025 [facility] Work Phone: Comment on above: Expected: 02/23/2024 (Approximate), Expires: 02/22/2025 Start: 02-23-2024 End: 02-22-2025 Measurement of glucose 1 hour after glucose challenge for glucose tolerance test Glucose tolerance, 1 hour Lab Routine Diabetes mellitus screening Expected: 02/23/2024 (Approximate), Expires: 02/22/2025 [facility] Comment on above: Expected: 02/23/2024 (Approximate), Expires: 02/22/2025 Start: 02-23-2024 End: 02-22-2025 US for US OB SCAN FOR GROWTH Imaging Routine size inconsistent with dates H/O premature delivery Expected: 02/23/2024 (Approximate), Expires: 02/22/2025 [facility] Comment on above: Expected: 02/23/2024 (Approximate), Expires: 02/22/2025 Start: 02-23-2024 End: 02-23-2024 Patient encounter procedure 02/23/2024 1:40 PM EDT Routine [facility] [address] [place] [phone] Mena Ann PA [address] [place], [place] [phone] Arrived [facility] Comment on above: Arrived Start: 02-18-2024 End: 02-18-2024 Patient encounter procedure 02/18/2024 2:30 PM EDT Routine [facility] [address] [place] [address] Mena Ann PA [address] [place] [address] [facility] Start: 01-11-2024 COVID-19 Vaccine ( season) COVID-19 Vaccine () [facility] Start: 01-11-2024 Influenza vaccination [facility] Start: 09-17-2023 End: 09-17-2023 Nutrition therapy 09/17/2023 2:30 PM EDT [facility] Nutrition Therapy [address] [place] [address] Anna Ortiz, SARMAD [address] [place] [id number] Red/Davis/0 Diet/[place] Nutrition [facility] Comment on above: Red/Davis/0 Diet/ [place] Start: 09-12-2023 End: 09-12-2023 Admission to same day surgery center 09/12/2023 3:30 PM EDT [facility] General Surgery [address] [place], [place] [phone] Joo Bradley MD [address] [place] [address] Red/Kirk/0 Diet/[place] [facility] Comment on above: Red/Kirk/0 Diet/Anth em Start: 09-05-2023 End: 09-05-2023 ambulatory 09/05/2023 11:45 AM EDT Results Only [facility] [address] [place] [address] [place] [address] [facility] Start: 08-20-2023 End: 11-19-2023 25-hydroxyvitamin D3 [Mass/volume] in Serum or Plasma VITAMIN D 25 HYDROXY Lab Routine Body mass index (BMI) of 50-59.9 in adult (HCC) Expected: 08/20/2023, Expires: 11/19/2023 [facility] Work Phone: Comment on above: Expected: 08/20/2023 , Expires: 11/19/2023 Start: 08-20-2023 End: 11-19-2023 CBC W Auto Differential panel - Blood COMPLETE BLOOD COUNT AND DIFFERENTIAL Lab Routine Body mass index (BMI) of 50-59.9 in adult ([facility]) Expected: 08/20/2023, Expires: 11/19/2023 [facility] Work Phone: Comment on above: Expected: 08/20/2023 , Expires: 11/19/2023 Start: 08-20-2023 End: 11-19-2023 Cobalamin (Vitamin B12) [Mass/volume] in Serum or Plasma VITAMIN B12 Lab Routine Body mass index (BMI) of 50-59.9 in adult ([facility]) Expected: 08/20/2023, Expires: 11/19/2023 [facility] Work Phone: Comment on above: Expected: 08/20/2023 , Expires: 11/19/2023 Start: 08-20-2023 End: 11-19-2023 Comprehensive metabolic 2000 panel - Serum or Plasma COMPREHENSIVE METABOLIC PANEL Lab Routine High blood cholesterol Body mass index (BMI) of 50-59.9 in adult ([facility]) Expected: 08/20/2023, Expires: 11/19/2023 [facility] Work Phone: Comment on above: Expected: 08/20/2023 , Expires: 11/19/2023 Start: 08-20-2023 End: 11-19-2023 Ferritin [Mass/volume] in Serum or Plasma FERRITIN Lab Routine Body mass index (BMI) of 50-59.9 in adult ([facility]) Expected: 08/20/2023, Expires: 11/19/2023 [facility] Work Phone: Comment on above: Expected: 08/20/2023 , Expires: 11/19/2023 Start: 08-20-2023 End: 11-19-2023 Folate [Mass/volume] in Serum or Plasma FOLATE, SERUM Lab Routine Body mass index (BMI) of 50-59.9 in adult ([facility]) Expected: 08/20/2023, Expires: 11/19/2023 [facility] Work Phone: Comment on above: Expected: 08/20/2023 , Expires: 11/19/2023 Start: 08-20-2023 End: 11-19-2023 Helicobacter pylori IgG Ab [Presence] in Serum or Plasma by Immunoassay H PYLORI IGG AB Lab Routine Body mass index (BMI) of 50-59.9 in adult ([facility]) Expected: 08/20/2023, Expires: 11/19/2023 [facility] Work Phone: Comment on above: Expected: 08/20/2023 , Expires: 11/19/2023 Start: 08-20-2023 End: 11-19-2023 Hemoglobin A1c in Blood HEMOGLOBIN A1C Lab Routine Body mass index (BMI) of 50-59.9 in adult ([facility]) Expected: 08/20/2023, Expires: 11/19/2023 [facility] Work Phone: Comment on above: Expected: 08/20/2023 , Expires: 11/19/2023 Start: 08-20-2023 End: 11-19-2023 Iron and Iron binding capacity panel - Serum or Plasma IRON AND TIBC Lab Routine Body mass index (BMI) of 50-59.9 in adult ([facility]) Expected: 08/20/2023, Expires: 11/19/2023 [facility] Work Phone: Comment on above: Expected: 08/20/2023 , Expires: 11/19/2023 Start: 08-20-2023 End: 11-19-2023 Lipid 1996 panel - Serum or Plasma LIPID PANEL BASIC Lab Routine High blood cholesterol Body mass index (BMI) of 50-59.9 in adult ([facility]) Expected: 08/20/2023, Expires: 11/19/2023 [facility] Work Phone: Comment on above: Expected: 08/20/2023 , Expires: 11/19/2023 Start: 08-20-2023 End: 11-19-2023 Natriuretic peptide.B prohormone N-Terminal [Mass/volume] in Serum or Plasma NT PRO BNP Lab Routine Body mass index (BMI) of 50-59.9 in adult ([facility]) Expected: 08/20/2023, Expires: 11/19/2023 [facility] Work Phone: Comment on above: Expected: 08/20/2023 , Expires: 11/19/2023 Start: 08-20-2023 End: 11-19-2023 NICOTINE & METAB, UR NICOTINE & METAB, UR Lab Routine Body mass index (BMI) of 50-59.9 in adult ([facility]) Expected: 08/20/2023, Expires: 11/19/2023 [facility] Work Phone: Comment on above: Expected: 08/20/2023 , Expires: 11/19/2023 Start: 08-20-2023 End: 11-19-2023 Thyrotropin [Units/volume] in Serum or Plasma THYROID STIMULATING HORMONE Lab Routine Angel's thyroiditis Body mass index (BMI) of 50-59.9 in adult ([facility]) Expected: 08/20/2023, Expires: 11/19/2023 [facility] Work Phone: Comment on above: Expected: 08/20/2023 , Expires: 11/19/2023 Start: 08-20-2023 End: 11-19-2023 TOXICOLOGY SCREEN, ROUTINE URINE TOXICOLOGY SCREEN, ROUTINE URINE Lab Routine Body mass index (BMI) of 50-59.9 in adult ([facility]) Expected: 08/20/2023, Expires: 11/19/2023 [facility] Work Phone: Comment on above: Expected: 08/20/2023 , Expires: 11/19/2023 Start: 08-20-2023 End: 11-19-2023 VITAMIN B1 (THIAMINE), WHOLE BLOOD VITAMIN B1 (THIAMINE), WHOLE BLOOD Lab Routine Body mass index (BMI) of 50-59.9 in adult ([facility]) Expected: 08/20/2023, Expires: 11/19/2023 [facility] Work Phone: Comment on above: Expected: 08/20/2023 , Expires: 11/19/2023 Start: 05-12-2023 Behavioral Health Screening Behavioral Health Screening [facility] Start: 01-10-2023 Covid-19 Vaccine ( season) Covid-19 Vaccine ( season) [facility] Start: 12-02-2021 Plain chest X-ray XR chest 1V portab le [facility] Start: 12-02-2021 XR Chest Single view [facility] Work Phone: Start: 2021 Screening for malign ant neoplasm of cervix HPV Testing [facility] Start: 2012 Screening for malign ant neoplasm of cervix Pap Testing [facility] Start: 2010 Hepatitis B Vaccine (1 of 3 - 19+ 3-dose series) Hepatitis B Vaccine (1 of 3 - 19+ 3-dose series) [facility] Start: 2009 Adult BMI Follow Up Plan Adult BMI Follow Up Plan [facility] Start: 2009 HIV screening HIV Screening [facility] Start: 2003 Depression Screening Depression [facility] Start: 2002 DTaP,Tdap and Td Vaccines (6 - Tdap) DTaP,Tdap and Td Vaccines (6 - Tdap) [facility] Start: 2002 Urine microalbumin profile DTaP,Tdap,Td Vaccine (6 - Tdap) [facility] End: 08-19-2024 ECG COMPLETE ECG COMPLETE ECG Routine Body mass index (BMI) of 50-59.9 in adult (HCC) 1 Occurrences starting 08/20/2023 until 08/19/2024 [facility] Work Phone: Comment on above: 1 Occurrences starti ng 08/20/2023 until 08/19/2024 Patient Education [facility] Work Phone: Patient referral [facility] Work Phone: Thyrotropin [Units/volume] in Serum or Plasma TSH Lab Routine Thyroid disease (CMS/HCC) Ordered: 04/22/[address] [facility] Comment on above: Ordered: 04/22/2024 End: 09-18-2024 US Abdomen RUQ US ABD RIGHT UPPER QUADRANT Radiology Routine Body mass index (BMI) of 50-59.9 in adult (HCC) 1 Occurrences starting 08/20/2023 until 09/18/2024 [facility] Work Phone: Comment on above: 1 Occurrences starti ng 08/20/2023 until 09/18/2024 End: 09-18-2024 XR Chest PA and Lateral XR CHEST 2V FRONTAL/LAT Radiology Routine Body mass index (BMI) of 50-59.9 in adult (HCC) 1 Occurrences starting 08/20/2023 until 09/18/2024 [facility] Work Phone: Comment on above: 1 Occurrences starti ng 08/20/2023 until 09/18/2024 [id number] 310 IVF Work Phone: [facility] NEGATED: Highlighted row has been ruled out! Planned Goals not documented HC-KFUYS-Kwfsph 310 IVF Work Phone: Immunizations Immunization Date Immunization Notes Care Provider Sonia miramontes 03-11-2023 influenza virus vacc ine, unspecified formulation Tacho Menendez DO Work Phone: [facility] Payers Date Payer Category Payer Self-pay [id number] 2022 Medicaid [id number] 2022 Medicaid [id number] [id number] 1991 Unknown [id number] 2.16.840.1.298885.3.579.2.59 3 1991 Unknown [id number] 2.16.840.1.633740.3.579.2.12 86 1991 Unknown [id number] 2.16.840.1.651981.3.579.2.12 86 1991 Unknown [id number] 2.16.840.1.536810.3.579.2.12 86 1991 Unknown [id number] 2.16.840.1.986675.3.579.2.12 86 1991 Unknown [id number] 2.16.840.1.097019.3.579.2.12 86 1991 Unknown [id number] 2.16.840.1.674805.3.579.2.12 59 1991 Unknown [id number] 2.16.840.1.569817.3.579.2.12 59 1991 Unknown [id number] 2.16.840.1.984629.3.579.2.12 59 1991 Unknown [id number] 2.16.840.1.239839.3.579.2.12 59 1991 Unknown [id number] 2.16.840.1.861237.3.579.2.12 59 1991 Unknown [id number] 2.16.840.1.339352.3.579.2.12 59 1991 Unknown [id number] 2.16.840.1.305113.3.579.2.12 59 1991 Unknown [id number] 2.16.840.1.077818.3.579.2.12 59 1959 Medicaid [id number] Private Health Insurance [facility] [id number] Unknown [id number] Unknown Regular Insurance [id number] Unknown [employer] [id number] Unknown Regular Auto/Medical [id number] Unknown [id number] 2.16.840.1.671775.3.579.2.53 1 Unknown [id number] 2.16.840.1.318330.3.579.2.53 1 Unknown [id number] 2.16.840.1.654559.3.579.2.53 1 Unknown [id number] 2.16.840.1.767770.3.579.2.53 1 Social History Date Type Detail Facility Start: 12-02-2021 End: 05-17-2023 Tobacco smoking status NHIS Never smoked tobacco (finding) [facility] Start: 1990 Sex Assigned At Female F [facility] Start: 05-17-2023 End: 08-20-2023 Sex Assigned At [employer] Other Start: 05-17-2023 End: 08-20-2023 Tobacco use and exposure Smokeless tobacco non-user [facility] Work Phone: Start: 08-20-2023 End: 05-03-2024 Alcohol intake Current drinker of alcohol (finding) [facility] Start: 05-17-2023 End: 08-20-2023 History of Social function [facility] National Score (1-100), lower number is lower risk 86 [facility] Start: 08-20-2023 Alcohol Comment occ [facility] Start: 1990 Sex Assigned At Not on file [facility] Start: 08-26-2023 Gender identity Identifies as female gender (finding) [facility] Start: 08-26-2023 Sexual orientation Heterosexual (fin ding) [facility] Start: 09-14-2023 [facility] How often to you hav e a [...] Start: 01-19-2024 Alcoholic beverage intake Ex-drinker (finding) [facility] Start: 12-13-2014 Sex Female (finding) [facility] NEGATED: Highlighted row - - IV-CNRIW-Iyndto 310 IVF Work Phone: Functional Status Date Assessment Result Facility NEGATED: Highlighted row Functional performance Functional status health issues are not documented Disease WO-ESYQM-Ovtstf 310 IVF Work Phone: Mental Status Date Assessment Result Facility NEGATED: Highlighted row Cognitive function [Interpretation] Cognitive status health issues are not documented Disease OA-NQZBD-Rmzags 310 IV[facility] Work Phone: Clinical Notes 01-08-2023 to 05-03-2024 GERARDO Vazquez - 05/03/2024 2:50 PM Fawad Fernandez LPN - 04/22/2024 9:40 AM GERARDO Hunter - 04/06/2024 1:30 PM Craig Mcbride LPN - 03/22/2024 1:50 PM GERARDO Hunter - 02/23/2024 1:40 PM EDT Note Date & Type Note Facility 05-03-2024 History of Presen t illness Narrative Reason [...] 06/2019 OTHER SURGICAL HISTORY 2020 IUI 07/10/20 [facility] SALPINGECTOMY Left 2011 ectopic REVIEW OF SYSTEMS [...] reviewed. Vitals: Estimated body mass index is 49.09 kg/m as calculated from the following: Height as of 08/26/22: 5' 6 . Weight as of this encounter: 304 lb 1.9 oz. BP: 120/70 Patient's last menstrual period was 08/24/2023. ASSESSMENT & PLAN ICD-10-CM 1. 35 weeks gestation of Z3A.35 POCT urinalysis dipstick manually resulted 2. Third trimester Z34.93 POCT urinalysis dipstick manually resulted Return OB: Patient presents today for a routine obstetrics appointment. Patient is currently 35w1d . Patient states she is doing well but has complaints of being tired due to current . Patient has verbalizes frequent movement. labor precautions was discussed/given and patient was instructed to perform kick counts three times a day. Orders Placed This Encounter Procedures POCT urinalysis dipstick manually resulted Follow Up: Patient is to return to office in 2 week for routine OB appointment. Documented by GERARDO Vazquez on behalf of: GERARDO Vazquez documented in this encounter [facility] 04-22-2024 History of Presen t illness Narrative [...] 06/2019 OTHER SURGICAL HISTORY 2020 IUI 07/10/20 [facility] SALPINGECTOMY Left 2011 ectopic REVIEW OF SYSTEMS [...] nursing note reviewed. Exam conducted with a student finance advisor present. Vitals: Estimated body mass index is [...] Tacho Menendez DO documented in this encounter [facility] 04-06-2024 History of Presen t illness Narrative [...] 06/2019 OTHER SURGICAL HISTORY 2020 IUI 07/10/20 [facility] SALPINGECTOMY Left 2011 ectopic REVIEW OF SYSTEMS [...] calculated from the following: Height as of 4/17/23: 5' 6 . Weight as of this [...] of: GERARDO Vazquez documented in this encounter [facility] 03-22-2024 History of Presen t illness Narrative [...] 06/2019 OTHER SURGICAL HISTORY 2020 IUI 07/10/20 [facility] SALPINGECTOMY Left 2011 ectopic REVIEW OF SYSTEMS [...] nursing note reviewed. Exam conducted with a student finance advisor present. Vitals: Estimated body mass index is 48.92 kg/m as calculated from the following: Height as of 4/17/23: 5' 6 . Weight as of this [...] Tacho Menendez DO documented in this encounter [facility] 02-23-2024 History of Presen t illness Narrative [...] Morbid obesity with BMI of 50.0-59.9, adult (CMS/[facility]) Vaginal delivery Social History Tobacco [...] 06/2019 OTHER SURGICAL HISTORY 2020 IUI 07/10/20 [facility] SALPINGECTOMY Left 2011 ectopic REVIEW OF SYSTEMS [...] nursing note reviewed. Exam conducted with a student finance advisor present. Vitals: Estimated body mass index is [...] of: GERARDO Vazquez documented in this encounter [facility] 01-20-2024 History of Presen t illness Narrative Reason for Appointment: Patient ID: Jaleesa Arrieta is a 33 y.o. female who presents for Routine Visit Patient presents today for Return OB appointment. MEDICATIONS Current Outpatient Medications Medication Instructions levothyroxine (SYNTHROID) 25 mcg, Oral, Daily before breakfast magnesium oxide (MAG-OX) 400 mg, Oral, Daily [...] Morbid obesity with BMI of 50.0-59.9, adult (CMS/[facility]) Vaginal delivery HISTORY PAST MEDICAL HISTORY SOCIAL HISTORY Past Medical History: Diagnosis Date Abdominal pain Breast pain, right Cholelithiasis Encounter for cervical smear to confirm findings of recent normal smear following initial abnormal smear Angel's disease (CMS/HCC) Hypothyroidism (CMS/HCC) Morbid obesity (CMS/HCC) Morbid obesity with BMI of 50.0-59.9, adult ([facility]) Vaginal delivery Social History Tobacco [...] 06/2019 OTHER SURGICAL HISTORY 2020 IUI 07/10/20 [facility] SALPINGECTOMY Left 2011 ectopic REVIEW OF SYSTEMS [...] nursing note reviewed. Exam conducted with a student finance advisor present. Vitals: Estimated body mass index is 48.1 kg/m as calculated from the following: Height as of 08/26/22: 5' 6 . Weight as of this encounter: 298 lb. BP: 122/74 Patient's last menstrual period was 08/24/2023. ASSESSMENT & PLAN ICD-10-CM 1. Second trimester Z34.92 POCT urinalysis dipstick manually resulted Patient presents today for a routine obstetrics appointment. Patient is currently 20w2d with a Estimated Date of Delivery: 06/06/24. Pt had anatomy scan prior to appt. Pt will be notified. Pt has follow up appt at [facility] in four weeks. Pt to return to office in four weeks for scheduled OB appt. Documented by Priscilla Fernandez LPN on behalf of: Tahco Menendez DO documented in this encounter [facility] 10-09-2023 Note HNO ID: [id number] Author: LATONIA GREENE, PhD Service: ? Author Type: Psychologist Type: Progress Notes Filed: 10/17/2023 11:09 Note Text: [facility] BARIATRIC SURGERY BEHAVIORAL HEALTH EVALUATION BMI Surgical Pathway Visit type: Psychology Visit DATE OF SERVICE: October 09, 2023 TIME OF SERVICE: 1:00 PM - 2:00 PM COST CENTER: [facility] CPT CODE: - [id number] Virtual Psych Diagnostic Eval BILLING CODE: ENDO PSYL MAIN Jerel DATE OF FIRST SERVICE THIS CYCLE: October 09, 2023 SESSION #: 1 I have communicated my name and active licensure. The patient's identity and physical location (see below) were verified at the time of this visit. Either the patient or their legal vendor representatives has been informed of the risks and benefits of -- and alternatives to -- treatment through a remote evaluation and consents to proceed with the evaluation remotely. This evaluation is NOT intended for forensic, disability or child custody purposes. The patient e-signed a copy of the consent form via [employer] and [facility] benefits, fees for service, [...] case of emergency and/or disconnection. [address] [place] [address] (Change address in [place], was mother) Alternate Estimating Engineer Bibi Arrieta (Mother) [phone] (Home Phone) Patient identified the following plan to follow in case of emergency: Go to emergency room (nearest is [facility]) or call 911. IDENTIFYING INFORMATION: Ms. [...] pt has l (more content not included)... [facility] 09-22-2023 Telephone encounter Note Can not schedule patient as there is already a patient scheduled for that day and time. Please advise. Thanks Meme Castrejon [facility] 09-22-2023 Telephone encounter Note ----- Message from Anna Ortiz RD sent at 09/17/2023 3:17 PM EDT ----- Regarding: virtual follow up Please schedule for a virtual up 6/ at 1. The patient is aware, no call needed. Thank you! Anna [facility] 09-22-2023 Miscellaneous Notes Can not schedule patient as there is already a patient scheduled for that day and time. Please advise. Thanks Meme Castrejon ----- Message from Anna Ortiz RD sent at 09/17/2023 3:17 PM EDT ----- Regarding: virtual follow up Please schedule for a virtual up / at 1. The patient is aware, no call needed. Thank you! Anna Attempted to call pt, re: hypothyroid and low vitamin d levels, no answer, left vm. Tonya Senior APRN.FINANCIAL OFFICER documented in this encounter [facility] 09-17-[address] - 09/17/2023 3:12 PM EDT 1. Read Nutritional Guidelines Section of Your Guide to Surgery by next session [email or web address] -/scassets/files/org/[email or web address]/ [email or web address] [email or web address]?la=en 2. Do not [...] full-liquid diet. Examples: Slim Fast Advanced Nutrition [place] Breakfast Essentials Light Start Drink mixed with [...] Bariatric Multivitamin and Calcium Citrate (total of 8531-4177 mg/day) * take calcium citrate separately from Multivitamin with iron at least 2 hours apart and 4 hours apart from additional calcium www.[email or web address] - Bariatric Choice: 4 Complete Multivitamins (chewables) per day Www.bariatricchoice.com - Bariatric Advantage: 2 Multivitamins and 3 Calcium Citrate Chewables per day * take calcium citrate separately from Multivitamin with iron at least 2 hours apart and 4 hours apart from additional calcium Www.bariatricadvantage.[email or web address] Start practicing eating slowly, chewing each bite of food 20-30 x per bite, making meals last 20-30 minutes, separatign food and fluids by 30 minutes . Have all meals and snacks at the table with no distractions. Make placemat for reminders; work towards normal sleep/wake pattern Pre-op goal weight: 281 pounds Protein needs: 85 grams per day documented in this encounter [facility] 09-17-2023 Note HNO ID: [id number] Author: ANNA ORTIZ RD Service: ? Author Type: Registered Dietitian Type: Progress Notes Filed: 09/17/2023 15:19 Note Text: The [facility] Nutrition Therapy: Virtual Consult - Initial Assessment I have communicated my name and active licensure. The patient?s identity and physical location were verified at the time of this visit. Either the patient or their legal vendor representatives has been informed of the risks and [...] to Surgery by next session [email or web address] -/scassets/files/org/[email or web address]/ [email or web address]?la=en 2. Do not skip [...] Examples: ? Slim Fast Advanced Nutrition ? [place] Breakfast Essentials ?Light Start? Drink mixed with [...] AM, 2 in the PM) www.bariatricfusion.com - [employer]: 1 Bariatric Multivitamin and Calcium Citrate (total of 7543-9089 mg/day) * take calcium citrate separately from Multivitamin with iron at least 2 hours apart and 4 hours apart from additional calcium www.[employer]rys.[place] - Bariatric Choice: 4 Complete Multivitamins (chewables) per day Www.bariatricchoice.[place] - Bariatric Advantage: 2 Multivitamins and 3 [...] and using Phen (more content not included)... [facility] 09-17-2023 History of Presen t illness Narrative The [facility] Nutrition Therapy: Virtual Consult - Initial Assessment I have communicated my name and active licensure. The patient s identity and physical location were verified at the time of this visit. Either the patient or their legal vendor representatives has been informed of the risks and [...] Guide to Surgery by next session [email or web address] -/scassets/files/org/[email or web address]/ guides/[email or web address] [email or web address]?la=en 2. Do not [...] full-liquid diet. Examples: Slim Fast Advanced Nutrition [place] Breakfast Essentials Light Start Drink mixed with [...] AM, 2 in the PM) www.bariatricfusion.com - [employer]: 1 Bariatric Multivitamin and Calcium Citrate (total of 0929-7348 mg/day) * take calcium citrate separately from Multivitamin with iron at least 2 hours apart and 4 hours apart from additional calcium www.procarenow.[place] - Bariatric Choice: 4 Complete Multivitamins (chewables) per day Www.bariatricchoice.com - Bariatric Advantage: 2 Multivitamins and 3 Calcium Citrate Chewables per day * take calcium citrate separately from Multivitamin with iron at least 2 hours apart and 4 hours apart from additional calcium Www.bariatricadvantage.[place] Start practicing eating slowly, chewing each bite [...] suggested by 180 Initial weight: 295 lbs. [place] body weight is 155 lbs. Excess body weight is 140 lbs. Goal weight pre-op is 281 lbs. Protein needs are estimated at 85gm (1.2 - protein/kg IBW) Patient meets the National Institutes of Health guidelines for weight loss surgery and has [employer] therefore is required to complete 0 [...] units SIGNATURE: Anna Ortiz RD PATIENT NAME: Jlaeesa Arrieta DATE: 09/17/2023 TIME: 2:25 PM documented in this encounter [facility] 09-11-2023 Telephone encounter Note Attempted to call pt, re: hypothyroid and low vitamin d levels, no answer, left vm. Tonya Senior APRN.MERON [facility] 09-01-2023 Note HNO ID: [id number] Author: LATONIA GREENE, PhD Service: ? Author Type: Psychologist Type: Progress Notes Filed: 09/01/2023 13:22 Note Text: [facility] Progress Note 09/01/2023 Billing code: Jerel Patient did not attend, cancel, or reschedule this appointment. Provider left HIPAA compliant voicemail and MyChart message with contact information to reschedule. Latonia Greene, PhD Clinical Psychologist [facility] 09-01-2023 History of Presen t illness Narrative [facility] Progress Note 09/01/2023 Billing code: Jerel Patient did not attend, cancel, or reschedule this appointment. Provider left HIPAA compliant voicemail and MyChart message with contact information to reschedule. Latonia Greene, PhD Clinical Psychologist documented in this encounter [facility] 08-20-2023 Note HNO ID: [id number] Author: TONYA SENIOR APRN.MERON Service: ? Author Type: Nurse Practitioner Type: Progress Notes Filed: 08/20/2023 16:21 Note Text: have communicated my name and active licensure. The patient's identity and physical location were verified at the time of this visit. Either the patient or their legal vendor representatives has been informed of the risks and benefits of -- and alternatives to -- treatment through a remote evaluation and consents to proceed with the evaluation remotely. BMI MEDICAL CONSULT I have communicated my name and active licensure. The patient's identity and physical location were verified at the time of this visit. Either the patient or their legal vendor representatives has been informed of the risks and [...] HEMOGLOBIN A1C - (more content not included)... [facility] 08-20-2023 History of Presen t illness Narrative Images from the original note were not included. have communicated my name and active licensure. The patient's identity and physical location were verified at the time of this visit. Either the patient or their legal vendor representatives has been informed of the risks and benefits of -- and alternatives to -- treatment through a remote evaluation and consents to proceed with the evaluation remotely. BMI MEDICAL CONSULT I have communicated my name and active licensure. The patient's identity and physical location were verified at the time of this visit. Either the patient or their legal vendor representatives has been informed of the risks and [...] mass index (BMI) of 50-59.9 in adult ([facility]) 08/20/2023 Angel's thyroiditis 08/20/2023 High [...] mass index (BMI) of 50-59.9 in adult ([facility]) - ICD9: V85.43, ICD10: Z68.43 [...] Obesity Medicine Visit documented in this encounter [facility] 06-13-2023 Evaluation note Encounter Date Diagnosis [...] 8 weeks -Handed patient self referral to [facility] bariatric surgery program -Xeeur-tp-xdue A1c December 2022 5.4%-Follow up in clinic in 8 weeksThis note was created with voice recognition software. Please excuse errors in redevelopment specialist. Jun, Dietary surveillance and counseling (ICD-10 - [...] for a goal of 5% weight reduction. [employer] Other 08-30-2023 Evaluation note* Encounter Date [...] on in the past and denies side swpwslc-Qcdvp-ht-care A1c today 5.4%-Follow up in clinic in 4 weeksThis note was created with voice recognition software. Please excuse errors in redevelopment specialist. Dec, Dietary surveillance and counseling (ICD-10 - [...] premade protein drink for breakfast, by plain Brazilian yogurt and flavor yourself with cinnamon or [...] with the patient, and documenting clinical information. [employer] Other Chief complaint+Reason for visit Narrative* Chief Complaint Obesity Reason for Visit Exercise counseling Severe obesity (BMI >= 40) [facility] Work Phone: Chief complaint+Reason for visit Narrative* Chief Complaint Pos test, Cramping, Vaginal bleeding Reason for Visit Exercise counseling Severe obesity (BMI >= 40) [facility] Work Phone: evaluemotl noteNo assessment information available [facility] Work Phone: evaluation note* Diagnosis Onset Date Resolution Status Exercise counseling acute Severe obesity (BMI >= 40) [facility] Work Phone: evaluation note* Diagnosis Body mass index (BMI) of 50-59.9 in adult ([facility])- Primary Body Mass Index 50.0-59.9, adult Angel's thyroiditis Chronic lymphocytic thyroiditis High blood cholesterol Pure hypercholesterolemia [facility] Diagnosis NO SHOW- Primary [facility] [place] [facility]* Diagnosis Obesity, Class III, BMI 40-49.9 (morbid obesity) ([facility])- Primary Morbid obesity Dietary counseling Dietary surveillance and counseling documented [facility] [place] [facility]* Diagnosis Vitamin D deficiency- Primary Unspecified vitamin D deficiency [facility] [place] [facility]* Diagnosis 25 weeks gestation of Second trimester state, incidental Diabetes mellitus screening Screening for diabetes mellitus size inconsistent with dates H/O premature delivery documented in this encounter [facility]* Diagnosis Encounter for follow-up ultrasound of anatomy- Primary History of pre-eclampsia in prior , currently with other poor obstetric history History of delivery, currently with history of pre-term labor Obesity affecting in second trimester, unspecified obesity type [facility] Diagnosis Third trimester state, incidental 29 weeks gestation of documented in this encounter [facility]* Diagnosis Third trimester state, incidental 31 weeks gestation of H/O premature delivery documented in this encounter [facility]* Diagnosis 33 weeks gestation of Third trimester state, incidental H/O premature delivery Thyroid disease ([facility]/HCC) Unspecified disorder of thyroid H/O pre-eclampsia in prior , currently [facility]* Diagnosis Second trimester state, incidental [facility]* Diagnosis 35 weeks gestation of Third trimester state, incidental [facility] Narrative - Reported* Type Description Date Surgical History adnoidectomy Surgical History gall bladder Surgical History L Fallopian tube removed Hospitalization History See Above [employer] Other Hospital Discharge instructions Additional Instructions You may take cbcf-mcs-qnoripk cough and cold medication as needed You may take lmvs-brr-qmgmaez Tylenol and/or ibuprofen as needed Increase oral fluids Follow-up with family doctor as needed Return to the ER for any acute difficulty breathing high fever vomiting or any [facility]: Hospital Discharge instructions Additional Instructions Nothing into vagina until seen by [facility] May take Tylenol for discomfort Increase oral fluids Follow-up with [facility] Return to the ER for heavy bleeding greater than a pad an hour feeling dizzy lightheaded or any other concerns[facility] Work Phone: Hospital Discharge instructions Additional Instructions Follow-up with your OB in the next week.[facility] Work Phone: InstructionsNot on filedocumented in this encounter [facility] ([facility] Diagnostic Procedure Only (Routine) - Pending Review Specialty Diagnoses / Procedures Referred By Jaleesaac andres Referred To Contact [facility] Diagnoses Body mass index (BMI) of 50-59.9 in adult (HCC) Procedures US ABD RIGHT UPPER QUADRANT US ABDOMINAL REAL TIME W/IMAGE LIMITED Tonya Senior APRN.CNP [address] [place] [address] [place] [address] Referral ID Status Reason Start Date Expiration Date Visits Requested Visits Authorized [id number] Pending Review Auto-Generat ed Referral 08/20/2023 09/18/2024 1 1 * Outpatient Procedure (Routine) - Pending Review Specialty Diagnoses / Procedures Referred By Contac t Referred To [facility] Diagnoses Body mass index (BMI) of 50-59.9 in adult (HCC) Procedures ECG COMPLETE ECG ROUTINE ECG W/LEAST 12 LDS W/I&R Tonya Senior APRN.CNP [address] [place] [address] [facility] [place] [address] Referral ID Status Reason Start Date Expiration Date Visits Requested Visits Authorized [id number] Pending Review Auto-Generat ed Referral 08/20/2023 08/19/2024 1 1 [facility] Summary Purpose Family History Mother Name [...] section and content) DATE CREATED AUTHOR 10/31/2017 [facility] DATE CREATED AUTHOR AUTHOR'S ORGANIZ ATION 04/23/2020 [facility] DATE CREATED AUTHOR AUTHOR'S ORGANIZ ATION 08/08/2020 [employer] DATE CREATED AUTHOR AUTHOR'S ORGANIZ ATION 08/22/2020 [facility] DATE CREATED AUTHOR AUTHOR'S ORGANIZ ATION 06/11/2022 [facility] DATE CREATED AUTHOR AUTHOR'S ORGANIZ ATION 09/06/2023 [facility] DATE CREATED AUTHOR AUTHOR'S ORGANIZ ATION 10/03/2023 [facility] DATE CREATED AUTHOR AUTHOR'S ORGANIZ ATION 10/18/2023 [facility] DATE CREATED AUTHOR AUTHOR'S ORGANIZ ATION 01/20/2024 [facility] DATE CREATED AUTHOR AUTHOR'S ORGANIZ ATION 03/19/2024 [facility] DATE CREATED AUTHOR AUTHOR'S ORGANIZ ATION 04/30/2024 [facility] DATE CREATED AUTHOR AUTHOR'S ORGANIZ ATION 04/30/2024 [facility] [employer] Care Teams (unrecognized sec tion and content) Team Status: Inactive Member Role Status Dates Services Family [facility] Primary Care Provider Active Ck To PA-C Emergency Provider Active Team Status: Active Member Role Status Dates Services Family [facility] Primary Care Provider Active Team Status: Inactive Member Role Status Dates Services [facility] Primary Care Provider Active MARGOT McmillanP-BC Emergency Provider Active Team Status: Inactive Member Role Status Dates Nicholas Michaels DO Attending Provider Active St art: June 13, 2023 End: June 13, 2023 Team Status: Active Member Role Status Dates Services Family [facility] Primary Care Provider Active Start: June 13, 2023 Nicholas Michaels DO Attending Provider Active St art: June 13, 2023 Team Status: Inactive Member Role Status Dates Services Family [facility] Primary Care Provider Active Start: August 07, 2023 End: August 07, 2023 Nicholas Michaels DO Attending Provider Active St art: August 07, 2023 End: August 07, 2023 Team Status: Inactive Member Role Status Dates Services Family [facility] Primary Care Provider Active Start: October 06, 2023 End: October 06, 2023 MARGOT McmillanP-BC Emergency Provider Active Start: October 06, 2023 End: October 06, 2023 Team Status: Inactive Member Role Status Dates Services [facility] Primary Care Provider Active Start: February 26, 2024 End: February 26, 2024 kC To PA-C Emergency Provider Active Start: February 26, 2024 End: February 26, 2024 Team Status: Inactive Member Role Status Dates Services [facility] Primary Care Provider Active Start: March [...] or prosecute any alcohol or drug abuse patient.[facility] the event this information is protected by the Federal Confidentiality of Alcohol and Drug Abuse Patient Records regulations: The Federal rules restrict any use of the information to criminally investigate or prosecute any alcohol or drug abuse patient.[facility] Hospital[facility] the event this information is protected by the Federal Confidentiality of Alcohol and Drug Abuse Patient Records regulations: The Federal rules restrict any use of the information to criminally investigate or prosecute any alcohol or drug abuse patient.[facility] Hospital[facility] the event this information is protected by the Federal Confidentiality of Alcohol and Drug Abuse Patient Records regulations: The Federal rules restrict any use of the information to criminally investigate or prosecute any alcohol or drug abuse patient.[facility] the event this information is protected by the Federal Confidentiality of Alcohol and Drug Abuse Patient Records regulations: The Federal rules restrict any use of the information to criminally investigate or prosecute any alcohol or drug abuse patient.[facility] Hospital[facility] the event this information is protected by the Federal Confidentiality of Alcohol and Drug Abuse Patient Records regulations: The Federal rules restrict any use of the information to criminally investigate or prosecute any alcohol or drug abuse patient.[facility] FOR RECORDS PERTAINING TO PATIENTS WHO [...] BE BASED ON THE PRIMARY CLINICAL RECORDS. [facility] [employer] [facility]. provides no warranty or guarantee of the accuracy or completeness of information in this document.
[2024-05-04 21:24] VITALS: BP 126/78; PULSE 98
== END 2024-05-04 21:58 | disposition home or self-care (01) ==
LOC: FBCO 06:25 → FBC 21:16
PROVIDERS: Visit Provider Obstetrics & Gynecology
DX: O26.893 Other specified pregnancy related conditions, third trimester (principal)
CPT/HCPCS: 59025

== ENCOUNTER 2024-05-08 07:24 | Outpatient (OUT) | payer MEDICAID, SELFPAY ==
--- NOTE | 2024-05-08 | US_ITS ---
[address] [address] Patient Name: FABRIZIO PAINTING MRN: [id number] date: 1990 Sex: F Assigned Patient Location: [facility] Current Patient Location: Accession/Order Number: [id number] Exam Date: 05/08/2024 13:09 Report Date: 05/10/2024 16:35 At the request of: MELISSA CLARK Procedure: US OB BPP w non-stress EXAMINATION: US OB BPP w non-stress HISTORY:History of premature delivery Z87.51 COMPARISON: Ultrasound OB biophysical 04/30/2024 TECHNIQUE: Ultrasound biophysical profile was performed in the radiology department. BREATHING MOVEMENTS: 2 GROSS BODY MOVEMENTS: 2 TONE: 2 QUALITATIVE AMNIOTIC FLUID VOLUME: 2 PRESENTATION: CEPHALIC HEART RATE: 151.69 bpm AMNIOTIC FLUID VOLUME: 12.93 cm GESTATIONAL AGE: 35 weeks 6 days US/US OB BPP w non-stress IMPRESSION: Total biophysical profile score: 8 Electronically authenticated by: FAM PHELPS Date: 05/10/2024 16:35
--- OUTSIDE RECORDS SUMMARY | 2024-05-08 07:29 | XMS_ITS | CCD ---
Author Organization [facility] Care Team Providers Care Graphic Specialist Name Role Phone Agustin Patton Unavailable Unavailable Agustin Patton Unavailable Unavailable Bayrno Mccarty Unavailable Unavailable Unavailable Unavailable Unavailable Unavailable Unavailable Unavailable [facility] Primary Care Provider DEMETRIUS To Emergency Provider DR TACHO MENENDEZ Attending Unavailable DR TACHO MENENDEZ Consulting Unavailable DR TACHO MENENDEZ Admitting Unavailable [facility] Primary Care Provider Anabella [facility] Marychuy E Emergency Provider Nicholas Michaels Unavailable [facility] Primary Care Provider DO Nicholas Michaels Attending Provider Unavailable Primary Care Provider Unavailabl e Unavailable Primary Care Provider Unavailabl e LATONIA GREENE Attending Unavailable TONYA SENIOR Attending Unavailable [facility] Primary Care Provider Anabella [facility] Marychuy E Emergency Provider [phone] LATONIA GREENE Referring Unavailable LATONIA GREENE Attending Unavailable ANNA ORTIZ Attending Unavailable TONYA SENIOR Referring Unavailable TONYA SENIOR Referring Unavailable TACHO MENENDEZ Referring Unavailable MAKEDA GROSS Attending Unavailable TACHO MENENDEZ Referring Unavailable Unavailable Primary Care Provider Unavailabl e [facility] Primary Care Provider DEMETRIUS To Emergency Provider [phone] Unavailable Primary Care Provider Unavailabl DO Devika Christie Emergency Provider [phone] Ck To Attending Unavailable Ck To Admitting Unavailable [facility] Primary Care Unavaila Marychuy Rey Attending Unavailable Marychuy Kyle Admitting Unavailable [facility] Primary Care Unavaila Nicholas Willams Attending Unavailable Nicholas Michaels Admitting Unavailable [facility] Primary Care Unavaila ble [facility] Primary Care Unavaila Dveika Hillman Attending Unavailable Devika De La Garza Admitting Unavailable SHON, TACHO R Referring Unavailable SHON, TACHO R Referring Unavailable SHON, TACHO R Referring Unavailable SHON, TACHO Attending Unavailable MARISSA, MENA Attending Unavailable SHON, TACHO Attending Unavailable MARISSA, MENA Attending Unavailable SHON, TACHO Attending Unavailable MARISSA, MENA Attending Unavailable SHON, TACHO Attending Unavailable MARISSA, MENA Attending Unavailable Medications Current Medications Medication Drug [...] mg/ml oral solution (2 sources) Phenothiazine, Uncompetitive O-mwovqp-N-aspartate Receptor Antagonist, Sigma-1 Agonist Start: 02-26-2024 take [...] Daily 30 tablet 11 10/30/2023 10/29/2024 Active [place] (No Known Home Meds) (3 sources) Start: 10-06-2023 [place] (No Kn own Home Meds) Active October 06, 2023 12:00am Start: 06-18-2022 [place] (No Kn own Home Meds) Active June [...] MG chewable tablet (20 sources) Start: 11-26-19 24 End: 11-26-19 25 MV & Min w/FA-DHA [...] oral solution (7 sources) alpha-Adrenergic Agonist, Uncompetitive Z-fhlpvf-V-asparta te Receptor Antagonist, Sigma-1 Agonist Start: 2 [...] 26, 2019 12:58pm July 28, 2020 7:27pm Jqpaxvqr-Hbf-Ox-Fa () 1 mg Tablet (7 sources) Start: 12-31-2020 End: 07-04-2021 take 1 tablet by mouth once Phiglgkq-Gjl-Jt-Fa () 1 mg Tablet Discontinued TAB PO December 30, 2020 11:00pm July 04, 2021 9:48am Start: 12-31-2020 End: 07-04-2021 take 1 tablet by mouth once Irippoqj-Ewr-Kz-F a () 1 mg Tablet Discontinued TAB PO December 31, 2020 12:00am July 04, 2021 10:48am progesterone 100 mg oral capsule (9 sources) Progesterone Start: 07-28-2020 End: 12-31-2020 Progesterone Micronized Discontinued 100 MG VAGINAL Twice daily July 28, 2020 12:00am December 31, 2020 9:55am Start: 06-19-2020 take 1 capsule by [facility] twice daily Progesterone Micronized 100 MG Oral Capsule TAKE 1 CAPSULE Twice daily insert capsules vaginally Quantity: 30 Refills: 3 Bayron Mccarty MD Start : 19-Jun-2020 Active sennosides, long-term 8.6 mg oral tablet (1 source) take 4 tablets by [facility] every twenty-four hours Senna 8.6 MG [...] HORMONEon 1 07-04-2023 TSH Qn 2.422 m[IU]/L [facility] Urinalysis macro (dipstick) panel (U)on 05-03-2024 Bilirubin, UA Negative Negative - 4(70) +++ mg/dL [facility] Blood, UA Negative Negative - 50 Bradley/mcL [facility] Clarity, UA Clear [facility] Color, UA Yellow [facility] Glucose, UA Negative Negative - 1999(110) ++++ mg/dL [facility] Interpretation and review of laboratory results Abnormal [facility] Ketones, UA Negative Negative - 160(16) ++++ mg/dL [facility] Leukocytes, UA Positive Negative - 500+++ Gabby/mcL [facility] Comment on above: small Nitrite, UA Negative Negative - Positive [facility] pH, UA 6 5 - 9 [facility] Protein, UA Negative Negative - 1999(20) ++++ mg/dL [facility] Spec Grav, UA 1.03 1 - 1.03 [facility] Urobilinogen, UA 0.2 0.2 - 12 mg/dL [facility] Urinalysis macro (dipstick) panel (U)on 04-22-2024 Bilirubin, UA Negative Negative - 4(70) +++ mg/dL [facility] Blood, UA Negative Negative - 50 Bradley/mcL [facility] Clarity, UA Clear [facility] Color, UA Yellow [facility] Glucose, UA Negative Negative - 1999(110) ++++ mg/dL [facility] Interpretation and review of laboratory results Abnormal [facility] Ketones, UA Negative Negative - 160(16) ++++ mg/dL [facility] Leukocytes, UA Trace Negative - 500+++ Gabby/mcL [facility] Nitrite, UA Negative Negative - Positive [facility] pH, UA 6 5 - 9 [facility] Protein, UA Positive Negative - 1999(20) ++++ mg/dL [facility] Comment on above: 30 Spec Grav, UA 1.025 1 - 1.03 [facility] Urobilinogen, UA 1.0 0.2 - 12 mg/dL [facility] Urinalysis macro (dipstick) panel (U)on 04-06-2024 Bilirubin, UA Negative Negative - 4(70) +++ mg/dL [facility] Blood, UA Negative Negative - 50 Bradley/mcL [facility] Clarity, UA Clear [facility] Color, UA Yellow [facility] Glucose, UA Negative Negative - 1999(110) ++++ mg/dL [facility] Interpretation and review of laboratory results Abnormal [facility] Ketones, UA Negative Negative - 160(16) ++++ mg/dL [facility] Leukocytes, UA Positive Negative - 500+++ Gabby/mcL [facility] Comment on above: small Nitrite, UA Negative Negative - Positive [facility] pH, UA 7 5 - 9 [facility] Protein, UA Negative Negative - 1999(20) ++++ mg/dL [facility] Spec Grav, UA 1.02 1 - 1.03 [facility] Urobilinogen, UA 0.2 0.2 - 12 mg/dL [facility] Urinalysis macro (dipstick) panel (U)on 03-22-2024 Bilirubin, UA Positive Negative - 4(70) +++ mg/dL [facility] Blood, UA Negative Negative - 50 Brdaley/mcL [facility] Clarity, UA Clear [facility] Color, UA Yellow [facility] Glucose, UA Negative Negative - 1999(110) ++++ mg/dL [facility] Interpretation and review of laboratory results Normal [facility] Ketones, UA Positive Negative - 160(16) ++++ mg/dL [facility] Leukocytes, UA Positive Negative - 500+++ Gabby/mcL [facility] Nitrite, UA Negative Negative - Positive [facility] pH, UA 7 5 - 9 [facility] Protein, UA Positive Negative - 1999(20) ++++ mg/dL [facility] Spec Grav, UA 1.025 1 - 1.03 [facility] Urobilinogen, UA 1.0 0.2 - 12 mg/dL [facility] ALL CBC WITH AUTO DIFFon BASOPHILS ABSOLUTE AUTO 0 [facility] Basophils/100 WBC (Bld) 0.5 % 0.2 - 2.0 % [facility] Eosinophils/100 WBC (Bld) 2.4 % 0.9 - 7.0 % [facility] Erythrocyte distribution width (RBC) [Ratio] 13.2 % 11.0 - 15.0 % [facility] Hematocrit (Bld) [Volume fraction] 33.2 % Low 36.0 - 48.0 % [facility] Hemoglobin (Bld) [Mass/Vol] 11.1 g/dL Low 12.0 - 16.0 g/dL [facility] IMMATURE GRANULOCYTES ABS AUTO 0.02 [facility] Immature granulocytes/100 WBC (Bld) 0.3 % 0.0 - 0.5 % [facility] Interpretation and review of laboratory results Abnormal [facility] LYMPHOCYTES ABSOLUTE AUTO 2.1 [facility] Lymphocytes/100 WBC (Bld) 32.5 % 20.5 - 60.0 % [facility] MCH (RBC) [Entitic mass] 30.5 pg 26.7 - 34.0 pg [facility] MCHC (RBC) [Mass/Vol] 33.4 g/dL 29.9 - 35.2 g/dL [facility] MCV (RBC) [Entitic vol] 91.2 fL 81.0 - 99.0 fL [facility] MONOCYTES ABSOLUTE AUTO 0.3 [facility] Monocytes/100 WBC (Bld) 4.6 % 1.7 - 12.0 % [facility] NEUTROPHILS ABSOLUTE AUTO 3.9 [facility] Neutrophils/100 WBC (Bld) 59.7 % 43.0 - 75.0 % [facility] Platelet mean volume (Bld) [Entitic vol] 9.3 fL Low 9.5 - 13.5 fL [facility] TBH EO # 0.2 [facility] TB PLT [address] [facility] RBC 3.64 Low [facility] TB WBC 6.6 [facility] BioFire Not Detectedon 03-05 BioFire Not Detected Not detected Normal Not Detecte Eboni angulo [facility] Comment on above: Result Comment: This is a duplicate RP2.1 COVID (PCR) result to be used for statistical tracking purpose only. PERFORMED BY: [facility] [address] [place] [address] PATHOLOGIST CORRESPONDENCE SPECIALIST LION STANLEY M.D. Performed By: #### B IOFIRECOVNOTDE, QS, RESP PANEL UPP. #### [facility] [address] COVID-19 Detected/Not Detect edOrdered By: Devika De La Garza on 03-05-2024 SARS-CoV-2 (COVID-19) RNA YANET+non-probe Ql (Nph) Not detected Not Detecte [facility] Comment on above: This is a duplicate RP2.1 COVID (PCR) result to be used for statistical tracking purpose only. ECG 12 lead ECGon 03-05-2024 ECG 12 lead ECG [facility] Main [place] [address] [place] [address] Electrocardiograph Report Signed Patient: Jaleesa Arrieta MR#: [id number] 94 : 1990 Acct:[id number] Age/Sex: 33 / F ADM Date: 03/05/24 [...] Confirmed by DEVIKA DE LA GARZA DO ([id number]) on 03/06/2024 1:44:25 AM Referred By: Electronically Signed By: DEVIKA DE LA GARZA DO Transcribed By: [facility] Signed By Devika De La Garza DO 03/06 0144 Normal [facility] Quick Strepon 03-05-2024 Quick Strep Streptococcus pyogen es Ag [Presence] in Throat by Rapid immunoassay Negative for Group A Strep Antigen Note 1 NOTE 2 Results are those of a screening test. NOTE 3 If clinically indicated please order a culture. NOTE 4 NOTE 5 Reference range = Negative PERFORMED BY: [place] [address] PATHOLOGIST CORRESPONDENCE SPECIALIST LION STANLEY M.D. Normal [facility] Comment on above: Performed By: #### B IOFIRECOVNOTDE, QS, RESP PANEL UPP. #### [address] Respiratory (Upper) Panel, P CRon 03-05-2024 [...] FLUA TEST INCLUDES - Influenza A H1 2008 FLUA TEST INCLUDES - Influenza A H3 Blank Space ------ PERFORMED BY: [place] [address] PATHOLOGIST CORRESPONDENCE SPECIALIST LION STANLEY M.D. Normal [facility] Comment on above: Performed By: #### B IOFIRECOVNOTDE, QS, RESP PANEL UPP. #### [address] Respiratory pathogens DNA an d RNA panel - Nasopharynx by YANET with non-probe detectionOrdered By: Devika De La Garza on 03-05-2024 Respiratory pathogens DNA and RNA panel YANET+non-probe (Nph) [facility] Streptococcus pyogenes antig en detectionOrdered By: Devika De La Garza on 03-05-2024 S. pyogenes Ag Ql (Unsp spec) [facility] XR chest 1V portableon 03-05 XR chest 1V portable [facility] Main [place] [address] [place] [address] XRay Report Signed Patient: Jaleesa Arrieta MR#: [id number] [birth year] : 1990 Acct:[id number] Age/Sex: 33 / F ADM Date: 03/05/24 Loc: ER Room: Type: [facility] ER Attending Dr: Copies to: Devika [...] Priscilla Cunningham M.D.03/05/2024 9:34 PM Dictation Location: [place] [address] Transcribed By: [facility] 03/05/242133 Dictated By: Priscilla Cunningham MD 03/05/242130 Signed By: 03/05/242133 Normal [facility] Quick Strepon 02-26-2024 Quick Strep Streptococcus pyogen es Ag [Presence] in Throat by Rapid immunoassay Negative for Group A Strep Antigen Note 1 NOTE 2 Results are those of a screening test. NOTE 3 If clinically indicated please order a culture. NOTE 4 NOTE 5 Reference range = Negative PERFORMED BY: [place] [address] PATHOLOGIST CORRESPONDENCE SPECIALIST LION STANLEY M.D. Normal [facility] Comment on above: Performed By: #### Q S #### [address] Streptococcus pyogenes antig en detectionOrdered By: Ck To on 02-26-2024 S. pyogenes Ag Ql (Unsp spec) [facility] Urinalysis macro (dipstick) panel (U)on 02-23-2024 Bilirubin, UA Negative Negative - 4(70) +++ mg/dL [facility] Blood, UA Negative Negative - 50 Bradley/mcL [facility] Clarity, UA Clear [facility] Color, UA Yellow [facility] Glucose, UA Negative Negative - 1999(110) ++++ mg/dL [facility] Interpretation and review of laboratory results Abnormal [facility] Ketones, UA Negative Negative - 160(16) ++++ mg/dL [facility] Leukocytes, UA Positive Negative - 500+++ Gabby/mcL [facility] Comment on above: small Nitrite, UA Negative Negative - Positive [facility] pH, UA 7 5 - 9 [facility] Protein, UA Negative Negative - 1999(20) ++++ mg/dL [facility] Spec Grav, UA 1.02 1 - 1.03 [facility] Urobilinogen, UA 0.2 0.2 - 12 mg/dL [facility] ALL THYROID STIM HORMONEon 0 01-26-2024 TSH Qn 2.645 m[IU]/L [facility] Urinalysis macro (dipstick) panel (U)on 01-20-2024 Bilirubin, UA Negative Negative - 4(70) +++ mg/dL [facility] Blood, UA Negative Negative - 50 Bradley/mcL [facility] Clarity, UA Clear [facility] Color, UA Yellow [facility] Glucose, UA Negative Negative - 1999(110) ++++ mg/dL [facility] Interpretation and review of laboratory results Abnormal [facility] Ketones, UA Negative Negative - 160(16) ++++ mg/dL [facility] Leukocytes, UA Trace Negative - 500+++ Gabby/mcL [facility] Nitrite, UA Negative Negative - Positive [facility] pH, UA 6.5 5 - 9 [facility] Protein, UA Negative Negative - 1999(20) ++++ mg/dL [facility] Spec Grav, UA 1.020 1 - 1.03 [facility] Urobilinogen, UA 0.2 0.2 - 12 mg/dL [facility] Alanine aminotransferase [En zymatic activity/volume] in Serum or PlasmaOrdered By: Marychuy Kyle on 10-06-2023 ALT [Catalytic activity/Vol] 13 U/L Normal 7-52 [facility] Comment on above: Performed By: #### C BC, CMP, HCGQNT #### [facility] [address] Albumin [Mass/volume] in Ser um or Plasma by Bromocresol green (BCG) dye binding methoOrdered By: Marychuy Jeronimoimore on 10-06-2023 Albumin BCG dye [Mass/Vol] 3.8 g/dL 3.5-5.7 [facility] Alkaline phosphatase [Enzyma tic activity/volume] in Serum or PlasmaOrdered By: Marychuy Wangore on 10-06-2023 ALP [Catalytic activity/Vol] 61 U/L Normal 34-104 [facility] Comment on above: Performed By: #### C BC, CMP, HCGQNT #### [facility] [address] Aspartate aminotransferase [ Enzymatic activity/volume] in Serum or PlasmaOrdered By: Marychuy Bullimore on 10-06-2023 AST [Catalytic activity/Vol] 13 U/L Normal 13-39 [facility] Comment on above: Performed By: #### C BC, CMP, HCGQNT #### [address] Automated basophil %Ordered By: Marychuy Bullimore on 10-06-2023 Basophils/100 WBC (Bld) 0.6 % Normal . [facility] Comment on above: Performed By: #### C BC, CMP, HCGQNT #### [address] Automated basophil countOrde red By: Marychuy Bullimore on 10-06-2023 Basophils (Bld) [#/Vol] 0.0 10*3/uL Normal 0.0-0.2 [facility] Comment on above: Result Comment: PERF ORMED BY: [place] [address] PATHOLOGIST CORRESPONDENCE SPECIALIST LION STANLEY M.D. Performed By: #### C BC, CMP, HCGQNT #### [address] Automated blood monocyte cou ntOrdered By: Marychuy Bullimore on 10-06-2023 Monocytes (Bld) [#/Vol] 0.5 10*3/uL Normal 0.0-0.8 [facility] Comment on above: Performed By: #### C BC, CMP, HCGQNT #### [address] Automated eosinophil %Ordere d By: Marychuy Bullimore on 10-06-2023 Eosinophils/100 WBC (Bld) 0.7 % Normal . [facility] Comment on above: Performed By: #### C BC, CMP, HCGQNT #### [address] Automated eosinophil countOr dered By: Marychuy Bullimore on 10-06-2023 Eosinophils (Bld) [#/Vol] 0.1 10*3/uL Normal 0.0-0.45 [facility] Comment on above: Performed By: #### C BC, CMP, HCGQNT #### [facility] [address] Automated epithelial cells c ount in urine sediment (number/area)Ordered By: Marychuy Jeronimoimore on 10-06-2023 Epithelial cells Auto (Urine sed) [#/Area] 3-4 [HPF] 0-2 [facility] Automated monocyte %Ordered By: Marychuy Bullimore on 10-06-2023 Monocytes/100 WBC (Bld) 6.7 % Normal . [facility] Comment on above: Performed By: #### C BC, CMP, HCGQNT #### [address] Automated neutrophil %Ordere d By: Marychuy Jeronimoimore on 10-06-2023 Neutrophils/100 WBC (Bld) 54.4 % Normal . [facility] Comment on above: Performed By: #### C BC, CMP, HCGQNT #### [facility] [address] [place] [address] Bacteria [Presence] in Urine by AutomatedOrdered By: Marychuy Kyle on 10-06-2023 Bacteria Auto Ql (U) None seen [HPF] None Seen [facility] Bilirubin Test strip Ql (U)O rdered By: Marychuy Jeronimoimore on 10-06-2023 Bilirubin Ql (U) Negative Negative [facility] Bilirubin.total [Mass/volume ] in Serum or PlasmaOrdered By: Marychuy Phaniimore on 10-06-2023 Bilirubin [Mass/Vol] 0.2 mg/dL Low 0.3-1.[address] [facility] Comment on above: Performed By: #### C BC, CMP, HCGQNT #### [facility] [address] [place] [address] Calcium [Mass/volume] in Ser um or PlasmaOrdered By: Marychuy Bullimore on 10-06-2023 Calcium [Mass/Vol] 9.4 mg/dL Normal 8.6-10.3 [facility] Comment on above: Performed By: #### C BC, CMP, HCGQNT #### [facility] [address] [place] [address] [place] Carbon dioxide, total [Moles /volume] in Serum or PlasmaOrdered By: Marychuy Phaniimore on 10-06-2023 CO2 [Moles/Vol] 25.5 mmol/L Normal 21.0-31.0 [facility] Comment on above: Performed By: #### C BC, CMP, HCGQNT #### [facility] [address] Chloride [Moles/volume] in S sondra or PlasmaOrdered By: Marychuy Bullimore on 10-06-2023 Chloride [Moles/Vol] 105 mmol/L Normal 98-[address] [facility] Comment on above: Performed By: #### C BC, CMP, HCGQNT #### [facility] [address] Choriogonadotropin.beta subu nit [Units/volume] in Serum or PlasmaOrdered By: Marychuy Jeronimoimore on 10-06-2023 HCG.beta subunit Qn 2799.00 m[IU]/mL [facility] Comment on above: Approximate Approxim ate hCG Gestational Age Range (mIU/ml) (weeks)0.2-1 5-50 1-2 50-500 2-3 100-5,000 3-4 500-10,000 4-5 1,000-50,000 5-6 10,000-100,000 6-8 15,000-200,000 8-12 10,000-100,000 Color of Urine by AutoOrdere d By: Marychuy Kyle on 10-06-2023 Color (U) Yellow Normal Yellow [facility] Comment on above: Order Comment: NEED MORE SPECIMEN Name Collection Type:: Clean-Voided Midstream Performed By: #### A DDONUAPLUS #### [facility] [address] Complete Blood Count Auto Di ffon 10-06-2023 Mean Corpuscular HGB Conc 34.4 g/dL Normal 32.0-35.0 [facility] Comment on above: Performed By: #### C BC, CMP, HCGQNT #### [address] Monocytes/100 WBC (Bld) 17.37 % Normal 0.00-20.00 [facility] Comment on above: Performed By: #### C BC, CMP, HCGQNT #### [address] NRBC% 0.2 /100{WBC} Normal 0-0.5 [facility] Comment on above: Performed By: #### C BC, CMP, HCGQNT #### [address] Comprehensive Metabolic Pane panchito 10-06-2023 Albumin [Mass/Vol] 3.8 g/dL Normal 3.5-5.7 [facility] Comment on above: Performed By: #### C BC, CMP, HCGQNT #### [address] Creatinine Clr Calc Pharmacy 180.48 Normal [facility] Comment on above: Performed By: #### C BC, CMP, HCGQNT #### [address] GFR/1.73 sq M.predicted MDRD (S/P/Bld) [Vol rate/Area] mL/min/{1.73_m2} Normal [facility] Comment on above: Performed By: #### C BC, CMP, HCGQNT #### [address] Creatinine [Mass/volume] in Serum or PlasmaOrdered By: Marychuy Kyle on 10-06-2023 Creatinine [Mass/Vol] 0.63 mg/dL Normal 0.60-1.20 [facility] Comment on above: Performed By: #### C BC, CMP, HCGQNT #### [address] Dipstick and Microscopicon 0 10-06-2023 Appearance (U) Clear Normal Clear [facility] Comment on above: Order Comment: NEED MORE SPECIMEN Name Collection Type:: Clean-Voided Midstream Performed By: #### A DDONUAPLUS #### [address] Bacteria,Urine None Seen Normal None Seen [facility] Comment on above: Order Comment: NEED MORE SPECIMEN Name Collection Type:: Clean-Voided Midstream Performed By: #### A DDONUAPLUS #### [address] Bilirubin,Urine Negative Normal Negative [facility] Comment on above: Order Comment: NEED MORE SPECIMEN Name Collection Type:: Clean-Voided Midstream Performed By: #### A DDONUAPLUS #### [address] Glucose Ql (U) Normal Normal Normal The [facility] Comment on above: Order Comment: NEED MORE SPECIMEN Name Collection Type:: Clean-Voided Midstream Performed By: #### A DDONUAPLUS #### [address] Hyaline Casts,Urine 0-8 Normal 0-8 [facility] Comment on above: Order Comment: NEED MORE SPECIMEN Name Collection Type:: Clean-Voided Midstream Result Comment: PERF ORMED BY: [place] [address] PATHOLOGIST CORRESPONDENCE SPECIALIST LION STANLEY M.D. Performed By: #### A DDONUAPLUS #### [address] Ketones Ql (U) Negative Normal Negative [facility] Comment on above: Order Comment: NEED MORE SPECIMEN Name Collection Type:: Clean-Voided Midstream Performed By: #### A DDONUAPLUS #### [address] Leukocyte esterase Test strip Ql (U) 1+ High Negative [facility] Comment on above: Order Comment: NEED MORE SPECIMEN Name Collection Type:: Clean-Voided Midstream Performed By: #### A DDONUAPLUS #### [place] [address] [place] Nitrite,Urine Negative Normal Negative [facility] Comment on above: Order Comment: NEED MORE SPECIMEN Name Collection Type:: Clean-Voided Midstream Performed By: #### A DDONUAPLUS #### [place] [address] [place] Occult Blood,Urine Negative Normal Negative [facility] Comment on above: Order Comment: NEED MORE SPECIMEN Name Collection Type:: Clean-Voided Midstream Result Comment: PERF ORMED BY: [place] [address] PATHOLOGIST CORRESPONDENCE SPECIALIST LION STANLEY M.D. Performed By: #### A DDONUAPLUS #### [place] [address] [place] Protein,Urine Negative Normal Negative [facility] Comment on above: Order Comment: NEED MORE SPECIMEN Name Collection Type:: Clean-Voided Midstream Performed By: #### A DDONUAPLUS #### [place] [address] [place] RBC LM.HPF (Urine sed) [#/Area] 0 /[HPF] Normal 0-4 [facility] Comment on above: Order Comment: NEED MORE SPECIMEN Name Collection Type:: Clean-Voided Midstream Performed By: #### A DDONUAPLUS #### [place] [address] [place] Specificy [place],Urine 1.017 Normal 1.001-1.030 [facility] Comment on above: Order Comment: NEED MORE SPECIMEN Name Collection Type:: Clean-Voided Midstream Performed By: #### A DDONUAPLUS #### [place] [address] [place] Squamous Epithelial Cell,Urine 3-4 High 0-2 [facility] Comment on above: Order Comment: NEED MORE SPECIMEN Name Collection Type:: Clean-Voided Midstream Performed By: #### A DDONUAPLUS #### [place] [address] [place] Urobilinogen,Urine Normal Normal Normal [facility] Comment on above: Order Comment: NEED MORE SPECIMEN Name Collection Type:: Clean-Voided Midstream Performed By: #### A DDONUAPLUS #### [address] WBC,Urine 3-4 Normal 0-4 [facility] Comment on above: Order Comment: NEED MORE SPECIMEN Name Collection Type:: Clean-Voided Midstream Performed By: #### A DDONUAPLUS #### [address] Erythrocyte distribution wid th [Ratio] by Automated countOrdered By: Marychuy Wangore on 10-06-2023 Erythrocyte distribution width (RBC) [Ratio] 13.4 % Normal 11.9-15.3 [facility] Comment on above: Performed By: #### C BC, CMP, HCGQNT #### [address] Erythrocytes [#/area] in Uri ne sediment by Automated countOrdered By: Marychuy Kyle on 10-06-2023 RBC Auto (Urine sed) [#/Area] 0-1 [HPF] 0-4 [facility] Erythrocytes [#/volume] in B lood by Automated countOrdered By: Marychuy Wangore on 10-06-2023 RBC (Bld) [#/Vol] 4.08 10*6/uL Normal 3.60-5.00 [facility] Comment on above: Performed By: #### C BC, CMP, HCGQNT #### [address] Glucose [Mass/volume] in Ser um or PlasmaOrdered By: Marychuy Jeronimoimore on 10-06-2023 Glucose [Mass/Vol] 100 mg/dL Normal 70-100 [facility] Comment on above: ADA recommended refe rence rangeRandom Glucose Reference Range is dependent on time and content of last meal. Glucose of more than 200 mg/dL in a nonstressed, ambulatory subject supports the diagnosis of Diabetes Mellitus. Result Comment: [place] Glucose Reference Range is dependent on time and content of last meal. Glucose of more than 200 mg/dL in a nonstressed, ambulatory subject supports the diagnosis of Diabetes Mellitus. ADA recommended reference range Performed By: #### C BC, CMP, HCGQNT #### [address] HCG,Quantitativeon HCG,Quantitative 2799.00 m[iU]/mL Normal [facility] Comment on above: Result Comment: Appr oximate Approximate hCG Gestational Age Range (mIU/ml) (weeks) 0.2-1 5-50 1-2 50-500 2-3 100-5,000 3-4 500-10,000 4-5 1,000-50,000 5-6 10,000-100,000 6-8 15,000-200,000 8-12 10,000-100,000 PERFORMED BY: [place] [address] PATHOLOGIST CORRESPONDENCE SPECIALIST LION STANLEY M.D. Performed By: #### C BC, CMP, HCGQNT #### [address] Hematocrit [Volume Fraction] of Blood by Automated countOrdered By: Marychuy Kyle on 10-06-2023 Hematocrit (Bld) [Volume fraction] 36.7 % Normal 34.0-46.4 [facility] Comment on above: Performed By: #### C BC, CMP, HCGQNT #### [address] Hemoglobin [Mass/volume] in BloodOrdered By: Marychuy Kyle on 10-06-2023 Hemoglobin (Bld) [Mass/Vol] 12.6 g/dL Normal 11.8-15.4 [facility] Comment on above: Performed By: #### C BC, CMP, HCGQNT #### [address] Ketones Auto test strip (U) [Mass/Vol]Ordered By: Marychuy Kyle on 10-06-2023 Ketones (U) [Mass/Vol] Negative Negative [facility] Laboratory - UrinalysisOrder ed By: Marychuy Kyle on 10-06-2023 Hyaline casts LM Ql (Urine sed) 0-8 [LPF] 0-8 [facility] Leukocytes [#/area] in Urine sediment by Automated countOrdered By: Marychuy Kyle on 10-06-2023 WBC Auto (Urine sed) [#/Area] 3-4 [HPF] 0-4 [facility] Leukocytes [#/volume] correc inocencia for nucleated erythrocytes in Blood by Automated counOrdered By: Marychuy Kyle on 10-06-2023 WBC corrected for nucl RBC Auto (Bld) [#/Vol] 7.4 10*3/uL 3.8-11.6 [facility] Leukocytes [#/volume] in Blo od by Automated countOrdered By: Marychuy Kyle on 10-06-2023 WBC (Bld) [#/Vol] 7.4 10*3/uL Normal 3.8-11.6 [facility] Comment on above: Performed By: #### C BC, CMP, HCGQNT #### [facility] [address] [place] [address] Lymphocytes [#/volume] in Bl ood by Automated countOrdered By: Marychuy Kyle on 10-06-2023 Lymphocytes (Bld) [#/Vol] 2.8 10*3/uL Normal 1.00-4.8 [facility] Comment on above: Performed By: #### C BC, CMP, HCGQNT #### [facility] [address] [place] [address] [place] Lymphocytes/100 leukocytes i n Blood by Automated countOrdered By: Marychuy Kyle on 10-06-2023 Lymphocytes/100 WBC (Bld) 37.6 % Normal . [facility] Comment on above: Performed By: #### C BC, CMP, HCGQNT #### [facility] [address] [place] [address] [place] MCH [Entitic mass] by Automa inocencia countOrdered By: Marychuy Kyle on 10-06-2023 MCH (RBC) [Entitic mass] 31.0 pg Normal 24.7-34.3 [facility] Comment on above: Performed By: #### C BC, CMP, HCGQNT #### [facility] [address] MCHC Auto (RBC) [Mass/Vol]Or dered By: Marychuy Jeronimoimore on 10-06-2023 MCHC (RBC) [Mass/Vol] 34.4 g/dL 32.0-35.0 [facility] MCV [Entitic volume] by Auto mated countOrdered By: Marychuy Kyle on 10-06-2023 MCV (RBC) [Entitic vol] 90.1 fL Normal 80-100 [facility] Comment on above: Performed By: #### C BC, CMP, HCGQNT #### [facility] [address] [place] [address] Monocyte distribution width [Entitic volume] in Blood by AutomatedOrdered By: Marychuy Kyle on 10-06-2023 Monocyte distribution width Auto (Bld) [Entitic vol] 17.37 % 0.00-20.00 [facility] Neutrophils [#/volume] in Bl ood by Automated countOrdered By: Marychuy Kyle on 10-06-2023 Neutrophils (Bld) [#/Vol] 4.0 10*3/uL Normal 1.8-7.7 [facility] Comment on above: Performed By: #### C BC, CMP, HCGQNT #### [facility] [address] [place] [address] Nitrite Test strip Ql (U)Ord ered By: Marychuy Kyle on 10-06-2023 Nitrite Ql (U) Negative Negative [facility] No Panel InformationOrdered By: Marychuy Kyle on 10-06-2023 Estimated GFR (CKD-EPI) > 60.0 mL/Min [facility] Creatinine Clearance (Chem 180.48 [facility] Nucleated erythrocytes [Pres ence] in Blood by Automated countOrdered By: Marychuy Kyle on 10-06-2023 Nucleated RBC Auto Ql (Bld) 0.2 /100{WBC} 0-0.5 [facility] Platelet mean volume [Entiti c volume] in Blood by Automated countOrdered By: Marychuy Kyle on 10-06-2023 Platelet mean volume (Bld) [Entitic vol] 7.5 fL Normal 6.3-10.7 [facility] Comment on above: Performed By: #### C BC, CMP, HCGQNT #### [address] Platelets [#/volume] in Bloo d by Automated countOrdered By: Marychuy Bullimore on 10-06-2023 Platelets (Bld) [#/Vol] 367 10*3/uL Normal 150-450 [facility] Comment on above: Performed By: #### C BC, CMP, HCGQNT #### [address] Potassium [Moles/volume] in Serum or PlasmaOrdered By: Marychuy Bullimore on 10-06-2023 Potassium [Moles/Vol] 4.1 mmol/L Normal 3.5-5.1 [facility] Comment on above: Performed By: #### C BC, CMP, HCGQNT #### [address] Protein Auto test strip (U) [Mass/Vol]Ordered By: Marychuy Bullimore on 10-06-2023 Protein (U) [Mass/Vol] Negative Negative [facility] Protein [Mass/volume] in Ser um or PlasmaOrdered By: Marychuy Bullimore on 10-06-2023 Protein [Mass/Vol] 7.4 g/dL Normal 6.4-8.9 [facility] Comment on above: Performed By: #### C BC, CMP, HCGQNT #### [address] Serum globulin measurement b y calculation (mass/volume)Ordered By: Marychuy Bullimore on 10-06-2023 Globulin (S) [Mass/Vol] 3.6 g/dL Normal [facility] Comment on above: Performed By: #### C BC, CMP, HCGQNT #### [address] Serum or plasma albumin/glob ulin mass ratioOrdered By: Marychuy Bullimore on 10-06-2023 Albumin/Globulin [Mass ratio] 1.1 {ratio} Normal [facility] Comment on above: Performed By: #### C JOSELYN WRIGHT, HCGQNT #### [address] Serum or plasma anion gap de terminationOrdered By: Marychuy Phaniimore on 10-06-2023 Anion gap [Moles/Vol] 12.6 mmol/L Normal 6.0-15.0 [facility] Comment on above: Performed By: #### C ADRIANA, CMP, HCGQNT #### [address] Sodium [Moles/volume] in Ser um or PlasmaOrdered By: Marychuy Bullimore on 10-06-2023 Sodium [Moles/Vol] 139 mmol/L Normal 136-145 [facility] Comment on above: Performed By: #### C JOSELYN WRIGHT, HCGQNT #### [address] Specific gravity Auto test s trip (U) [Rel density]Ordered By: Marychuymargaux Kyle on 10-06-2023 Specific gravity (U) [Rel density] 1.017 1.001-1.030 [facility] Urea nitrogen [Mass/volume] in Serum or PlasmaOrdered By: Marychuy Wangore on 10-06-2023 Urea nitrogen [Mass/Vol] 7 mg/dL Normal 7-25 [facility] Comment on above: Performed By: #### C JOSELYN WRIGHT, HCGQNT #### [address] Urine clarity by refractomet ry automatedOrdered By: Marychuy Kyle on 10-06-2023 Clarity Refractometry automated (U) Clear Clear [facility] Urine glucose measurement by automated test strip (mass/volume)Ordered By: Maryhcuy Kyle on 10-06-2023 Glucose Auto test strip (U) [Mass/Vol] Normal mg/dL Normal [facility] Urine hemoglobin detection b y automated test stripOrdered By: Marychuy Kyle on 10-06-2023 Hemoglobin Auto test strip Ql (U) Negative Negative [facility] Urine leukocyte esterase det ection by automated test stripOrdered By: Marychuy Kyle on 10-06-2023 Leukocyte esterase Auto test strip Ql (U) 1+ Negative [facility] Urine pH measurement by auto mated test stripOrdered By: Marychuy Kyle on 10-06-2023 pH (U) 7.0 [pH] Normal 5.0-9.0 [facility] Comment on above: Order Comment: NEED MORE SPECIMEN Name Collection Type:: Clean-Voided Midstream Performed By: #### A DDONUAPLUS #### [facility] [address] Urobilinogen Auto test strip (U) [Mass/Vol]Ordered By: Marychuy Kyle on 10-06-2023 Urobilinogen (U) [Mass/Vol] Normal mg/dL Normal [facility] Basia 09-11-2023 LIZ Telephone (MARTIN) -------- MERTJALEESA Tatum ([id number]) 1990 F Date Time Provider Department 09/11/23 [...] Date Reviewed: 08/20/2023 Reviewed by: Tonya Senior APRN.SCOOPER - Fully Assessed Reason for Visit: Results [...] Encounter Status:Closed by TONYA SENIOR on 09/23/23 [facility] NICOTINE AND METAB, URon URIN ANABASINE QUANT <5 [facility] on above: Order Comment: Speci men Type: URINE SPECIMEN Ordering Facility: [facility] Address: [address] [place] [address] Performed By: #### U NICOT #### [facility] CLIA [id number] [address] [place] [id number] URIN COTININE QUANT <15 Normal [facility] Comment on above: Order Comment: Speci men Type: URINE SPECIMEN Ordering Facility: [facility] Address: [address] [place] [address] Performed By: #### U NICOT #### [facility] CLIA [id number] [address] [place] [id number] URIN NICOTINE QUANT <15 Normal [facility] Comment on above: Order Comment: Speci men Type: URINE SPECIMEN Ordering Facility: [facility] Address: [address] [place] [address] Result Comment: INTE RPRETIVE INFORMATION: Nicotine and Metabolites, Urine, Quantitative Methodology: Quantitative Liquid Chromatography-Tandem Mass Spectrometry Positive cutoff: Nicotine 15 ng/mL Cotinine 15 ng/mL 3-SO-Obkufijp 50 ng/mL Anabasine 5 ng/mL For medical [...] developed and its performance characteristics determined by [facility]. It has not been cleared or approved by the [place] Food and Drug Administration. This test was performed in a CLIA certified laboratory and is intended for clinical purposes. Performed By: [facility] [address] [place], [place] [id number] Industrial Engineering Manager: Rex Zuleta MD, PhD CLIA Number: [id number] Performed By: #### U NICOT #### [facility] CLIA [id number] [address] [place] [address] URINE 3 [place] COTININE <50 Normal [facility] Comment on above: Order Comment: Speci men Type: URINE SPECIMEN Ordering Facility: [facility] Address: [address] [place] [address] Performed By: #### U NICOT #### [facility] CLIA [id number] [address] [place] [address] TOXICOLOGY SCREEN, ROUTINE U RINEon 09-08-2023 Amphetamines Confirm (U) [Mass/Vol] Negative Normal Negative [facility] Comment on above: Order Comment: Speci men Type: URINE SPECIMEN Ordering Facility: [facility] Address: [address] [place] [address] Result Comment: Cuto ff threshold at 1000 ng/mL. Performed By: #### U TOX2 #### [facility] CLIA [id number] [address] [place] [address] [place] BARBITURATES, URINE Negative Normal Negative [facility] Comment on above: Order Comment: Speci men Type: URINE SPECIMEN Ordering Facility: [facility] Address: [address] [place] [address] Result Comment: Cuto ff threshold at 200 ng/mL. Performed By: #### U TOX2 #### [facility] CLIA [id number] [address] [place] [address] [place] BENZODIAZEPINES, UR Negative Normal Negative [facility] Comment on above: Order Comment: Speci men Type: URINE SPECIMEN Ordering Facility: [facility] Address: [address] [place] [address] Result Comment: Cuto ff threshold at 200 ng/mL. Performed By: #### U TOX2 #### [facility] CLIA [id number] [address] [place] [address] [place] Cannabinoids Screen Ql (U) Negative Normal Negative [facility] Comment on above: Order Comment: Speci men Type: URINE SPECIMEN Ordering Facility: [facility] Address: [address] [place] [address] Result Comment: Cuto ff threshold at 50 ng/mL. Performed By: #### U TOX2 #### [facility] CLIA [id number] [address] [place] [address] [place] Cocaine Ql (U) Negative Normal Negative [facility] Comment on above: Order Comment: Speci men Type: URINE SPECIMEN Ordering Facility: [facility] Address: [address] [place] [address] Result Comment: Cuto ff threshold at 300 ng/mL. Performed By: #### U TOX2 #### [facility] CLIA [id number] [address] [place] [address] [place] Ethanol (U) [Mass/Vol] <11 Normal <11 [facility] Comment on above: Order Comment: Speci men Type: URINE SPECIMEN Ordering Facility: [facility] Address: [address] [place] [address] Performed By: #### U TOX2 #### [facility] CLIA [id number] [address] [place] [address] [place] Opiates Screen Ql (U) Negative Normal Negative [facility] Comment on above: Order Comment: Speci men Type: URINE SPECIMEN Ordering Facility: [facility] Address: [address] [place] [address] Result Comment: Cuto ff threshold at 300 ng/mL. Performed By: #### U TOX2 #### [facility] CLIA [id number] [address] [place] [address] [place] oxyCODONE cutoff Screen (U) [Mass/Vol] Negative Normal Negative [facility] Comment on above: Order Comment: Speci men Type: URINE SPECIMEN Ordering Facility: [facility] Address: [address] [place] [address] Result Comment: Cuto ff threshold at 100 ng/mL. Performed By: #### U TOX2 #### [facility] CLIA [id number] [address] [place] [address] [place] Phencyclidine Ql (U) Negative Normal Negative [facility] Comment on above: Order Comment: Speci men Type: URINE SPECIMEN Ordering Facility: [facility] Address: [address] [place] [address] Result Comment: Cuto ff threshold at 25 ng/mL. Performed By: #### U TOX2 #### [facility] CLIA [id number] [address] [place] [address] [place] 25(OH)D3 SerPl-mCncon 2023 25-hydroxyvitamin D3 [Mass/Vol] 11.9 ng/mL Low 31.0-80.0 [facility] Comment on above: Order Comment: Speci men Type: BLOOD SPECIMEN Ordering Facility: [facility] Address: [address] [place] [address] Performed By: #### 2 276-4, 2132-01, 2283-12 #### [facility] CLIA [id number] [address] [place] [address] [place] CBC W Auto Differential pane l (Bld)on 09-05-2023 Basophils (Bld) [#/Vol] 10*3/uL Normal <0.11 [facility] Comment on above: Order Comment: Speci men Type: BLOOD SPECIMEN Ordering Facility: [facility] Address: [address] [place] [address] Performed By: #### 2 276-4, 2132-01, 2283-12 #### [facility] CLIA [id number] [address] [place] [address] [place] Basophils/100 WBC (Bld) 0.3 % Normal [facility] Comment on above: Order Comment: Speci men Type: BLOOD SPECIMEN Ordering Facility: [facility] Address: [address] [place] [address] Performed By: #### 2 276-4, 2132-01, 2283-12 #### [facility] CLIA [id number] [address] [place] [address] [place] Differential cell count method Nom (Bld) Auto Normal [facility] Comment on above: Order Comment: Speci men Type: BLOOD SPECIMEN Ordering Facility: [facility] Address: [address] [place] [address] Performed By: #### 2 276-4, 2132-01, 2283-12 #### [facility] CLIA [id number] [address] [place] [address] [place] Eosinophils (Bld) [#/Vol] 0.09 10*3/uL Normal <0.46 [facility] Comment on above: Order Comment: Speci men Type: BLOOD SPECIMEN Ordering Facility: [facility] Address: [address] [place] [address] Performed By: #### 2 276-4, 2132-01, 2283-12 #### [facility] CLIA [id number] [address] [place] [address] [place] Eosinophils/100 WBC (Bld) 1.3 % Normal [facility] Comment on above: Order Comment: Speci men Type: BLOOD SPECIMEN Ordering Facility: [facility] Address: [address] [place] [address] Performed By: #### 2 276-4, 2132-01, 2283-12 #### [facility] CLIA [id number] [address] [place] [address] [place] Erythrocyte distribution width (RBC) [Ratio] 12.6 % Normal 11.5-15.0 [facility] Comment on above: Order Comment: Speci men Type: BLOOD SPECIMEN Ordering Facility: [facility] Address: [address] [place] [address] Performed By: #### 2 276-4, 2132-01, 2283-12 #### [facility] CLIA [id number] [address] [place] [address] [place] Hematocrit (Bld) [Volume fraction] 38.0 % Normal 36.0-46.0 [facility] Comment on above: Order Comment: Speci men Type: BLOOD SPECIMEN Ordering Facility: [facility] Address: [address] [place] [address] Performed By: #### 2 276-4, 2132-01, 2283-12 #### [facility] CLIA [id number] [address] [place] [address] [place] Hemoglobin (Bld) [Mass/Vol] 12.8 g/dL Normal 11.5-15.5 [facility] Comment on above: Order Comment: Speci men Type: BLOOD SPECIMEN Ordering Facility: [facility] Address: [address] [place] [address] Performed By: #### 2 276-4, 2132-01, 2283-12 #### [facility] CLIA [id number] [address] [place] [address] [place] Immature granulocytes (Bld) [#/Vol] 10*3/uL Normal <0.10 [facility] Comment on above: Order Comment: Speci men Type: BLOOD SPECIMEN Ordering Facility: [facility] Address: [address] [place] [address] Performed By: #### 2 276-4, 2132-01, 2283-12 #### [facility] CLIA [id number] [address] [place] [address] [place] Immature granulocytes/100 WBC (Bld) 0.1 % Normal [facility] Comment on above: Order Comment: Speci men Type: BLOOD SPECIMEN Ordering Facility: [facility] Address: [address] [place] [address] Performed By: #### 2 276-4, 2132-01, 2283-12 #### [facility] CLIA [id number] [address] [place] [address] [place] Lymphocytes (Bld) [#/Vol] 3.49 10*3/uL Normal 1.00-4.00 [facility] Comment on above: Order Comment: Speci men Type: BLOOD SPECIMEN Ordering Facility: [facility] Address: [address] [place] [address] Performed By: #### 2 276-4, 2132-01, 2283-12 #### [facility] CLIA [id number] [address] [place] [address] [place] Lymphocytes/100 WBC (Bld) 48.6 % Normal [facility] Comment on above: Order Comment: Speci men Type: BLOOD SPECIMEN Ordering Facility: [facility] Address: [address] [place] [address] Performed By: #### 2 276-4, 2132-01, 2283-12 #### [facility] CLIA [id number] [address] [place] [address] [place] MCH (RBC) [Entitic mass] 30.0 pg Normal 26.0-34.0 [facility] Comment on above: Order Comment: Speci men Type: BLOOD SPECIMEN Ordering Facility: [facility] Address: [address] [place] [address] Performed By: #### 2 276-4, 2132-01, 2283-12 #### [facility] CLIA [id number] [address] [place] [address] [place] MCHC (RBC) [Mass/Vol] 33.7 g/dL Normal 30.5-36.0 [facility] Comment on above: Order Comment: Speci men Type: BLOOD SPECIMEN Ordering Facility: [facility] Address: [address] [place] [address] Performed By: #### 2 276-4, 2132-01, 2283-12 #### [facility] CLIA [id number] [address] [place] [address] [place] MCV (RBC) [Entitic vol] 89.2 fL Normal 80.0-100.0 [facility] Comment on above: Order Comment: Speci men Type: BLOOD SPECIMEN Ordering Facility: [facility] Address: [address] [place] [address] Performed By: #### 2 276-4, 2132-01, 2283-12 #### [facility] CLIA [id number] [address] [place] [address] [place] Monocytes (Bld) [#/Vol] 0.48 10*3/uL Normal <0.87 [facility] Comment on above: Order Comment: Speci men Type: BLOOD SPECIMEN Ordering Facility: [facility] Address: [address] [place] [address] Performed By: #### 2 276-4, 2132-01, 2283-12 #### [facility] CLIA [id number] [address] [place] [address] [place] Monocytes/100 WBC (Bld) 6.7 % Normal [facility] Comment on above: Order Comment: Speci men Type: BLOOD SPECIMEN Ordering Facility: [facility] Address: [address] [place] [address] Performed By: #### 2 276-4, 2132-01, 2283-12 #### [facility] CLIA [id number] [address] [place] [address] [place] Neutrophils (Bld) [#/Vol] 3.09 10*3/uL Normal 1.45-7.50 [facility] Comment on above: Order Comment: Speci men Type: BLOOD SPECIMEN Ordering Facility: [facility] Address: [address] [place] [address] Performed By: #### 2 276-4, 2132-01, 2283-12 #### [facility] CLIA [id number] [address] [place] [address] [place] Neutrophils/100 WBC (Bld) 43.0 % Normal [facility] Comment on above: Order Comment: Speci men Type: BLOOD SPECIMEN Ordering Facility: [facility] Address: [address] [place] [address] Performed By: #### 2 276-4, 2132-01, 2283-12 #### [facility] CLIA [id number] [address] [place] [address] [place] Nucleated RBC (Bld) [#/Vol] 10*3/uL Normal <0.01 [facility] Comment on above: Order Comment: Speci men Type: BLOOD SPECIMEN Ordering Facility: [facility] Address: [address] [place] [address] Performed By: #### 2 276-4, 2132-01, 2283-12 #### [facility] CLIA [id number] [address] [place] [address] [place] Nucleated RBC/100 WBC (Bld) [Ratio] 0.0 /100 WBC Normal [facility] Comment on above: Order Comment: Speci men Type: BLOOD SPECIMEN Ordering Facility: [facility] Address: [address] [place] [address] Performed By: #### 2 276-4, 2132-01, 2283-12 #### [facility] CLIA [id number] [address] [place] [address] [place] Platelet mean volume (Bld) [Entitic vol] 9.2 fL Normal 9.0-12.7 [facility] Comment on above: Order Comment: Speci men Type: BLOOD SPECIMEN Ordering Facility: [facility] Address: [address] [place] [address] Performed By: #### 2 276-4, 2132-01, 2283-12 #### [facility] CLIA [id number] [address] [place] [address] [place] Platelets (Bld) [#/Vol] 361 10*3/uL Normal 150-400 [facility] Comment on above: Order Comment: Speci men Type: BLOOD SPECIMEN Ordering Facility: [facility] Address: [address] [place] [address] Performed By: #### 2 276-4, 2131-9, 8 #### [facility] CLIA [id number] [address] [place] [address] [place] RBC (Bld) [#/Vol] 4.26 10*6/uL Normal 3.90-5.20 [facility] Comment on above: Order Comment: Speci men Type: BLOOD SPECIMEN Ordering Facility: [facility] Address: [address] [place] [address] Performed By: #### 2 276-4, 9, 8 #### [facility] CLIA [id number] [address] [place] [address] [place] WBC (Bld) [#/Vol] 7.18 10*3/uL Normal 3.70-11.00 [facility] Comment on above: Order Comment: Speci men Type: BLOOD SPECIMEN Ordering Facility: [facility] Address: [address] [place] [address] Performed By: #### 2 276-4, 9, 2283-12 #### [facility] CLIA [id number] [address] [place] [address] [place] Comprehensive metabolic 2000 panelon 09-05-2023 Albumin [Mass/Vol] 4.0 g/dL Normal 3.9-4.9 [facility] Comment on above: Order Comment: Speci men Type: BLOOD SPECIMEN Ordering Facility: [facility] Address: [address] [place] [address] Performed By: #### 2 4323-8 #### [facility] CLIA [id number] [address] [place] [address] ALP [Catalytic activity/Vol] 91 U/L Normal 34-123 [facility] Comment on above: Order Comment: Speci men Type: BLOOD SPECIMEN Ordering Facility: [facility] Address: [address] [place] [address] Performed By: #### 2 4323-8 #### [facility] CLIA [id number] [address] [place] [address] ALT [Catalytic activity/Vol] 15 U/L Normal 7-38 [facility] Comment on above: Order Comment: Speci men Type: BLOOD SPECIMEN Ordering Facility: [facility] Address: [address] [place] [address] Performed By: #### 2 4323-8 #### [facility] CLIA [id number] [address] [place] [address] Anion gap [Moles/Vol] 10 mmol/L Normal 9-18 [facility] Comment on above: Order Comment: Speci men Type: BLOOD SPECIMEN Ordering Facility: [facility] Address: [address] [place] [address] Performed By: #### 2 4323-8 #### [facility] CLIA [id number] [address] [place] [address] AST [Catalytic activity/Vol] 13 U/L Normal 13-35 [facility] Comment on above: Order Comment: Speci men Type: BLOOD SPECIMEN Ordering Facility: [facility] Address: [address] [place], [place] [address] Performed By: #### 2 4323-8 #### [facility] CLIA [id number] [address] [place] [address] Bilirubin [Mass/Vol] 0.3 mg/dL Normal 0.2-1.3 [facility] Comment on above: Order Comment: Speci men Type: BLOOD SPECIMEN Ordering Facility: [facility] Address: [address] [place] [address] Performed By: #### 2 4323-8 #### [facility] CLIA [id number] [address] [place] [address] Calcium [Mass/Vol] 9.5 mg/dL Normal 8.5-10.2 [facility] Comment on above: Order Comment: Speci men Type: BLOOD SPECIMEN Ordering Facility: [facility] Address: [address] [place] [address] Performed By: #### 2 4323-8 #### [facility] CLIA [id number] [address] [place] [address] Chloride [Moles/Vol] 106 mmol/L High 97-105 [facility] Comment on above: Order Comment: Speci men Type: BLOOD SPECIMEN Ordering Facility: [facility] Address: [address] [place] [address] Performed By: #### 2 4323-8 #### [facility] CLIA [id number] [address] [place] [address] CO2 [Moles/Vol] 26 mmol/L Normal 22-30 [facility] Comment on above: Order Comment: Speci men Type: BLOOD SPECIMEN Ordering Facility: [facility] Address: [address] [place] [address] Performed By: #### 2 4323-8 #### [facility] CLIA [id number] [address] [place] [address] Creatinine [Mass/Vol] 0.75 mg/dL Normal 0.58-0.96 [facility] Comment on above: Order Comment: Speci men Type: BLOOD SPECIMEN Ordering Facility: [facility] Address: [address] [place] [address] Performed By: #### 2 4323-8 #### [facility] CLIA [id number] [address] [place] [address] Creatinine and Glomerular filtration rate.predicted panel (S/P/Bld) 109 mL/min/1.73m??? Normal >=60 [facility] Comment on above: Order Comment: Speci men Type: BLOOD SPECIMEN Ordering Facility: [facility] Address: [address] [place] [address] Result Comment: Stephani mated Glomerular Filtration Rate [...] GFR. Performed By: #### 2 4323-8 #### [facility] CLIA [id number] [address] [place] [address] Glucose [Mass/Vol] 104 mg/dL High 74-99 [facility] Comment on above: Order Comment: Laury bradshaw Type: BLOOD SPECIMEN Ordering Facility: [facility] Address: [address] [place] [address] Result Comment: The [place] Diabetes Association (ADA) provides guidance for cutoff [...] Standards of Medical Care in Diabetes 2016, [place] Diabetes Association. Diabetes Care. 2016.39(Suppl 1). Performed By: #### 2 4323-8 #### [facility] CLIA [id number] [address] [place] [address] Potassium [Moles/Vol] 4.2 mmol/L Normal 3.7-5.1 [facility] Comment on above: Order Comment: Laury bradshaw Type: BLOOD SPECIMEN Ordering Facility: [facility] Address: [address] [place] [address] Performed By: #### 2 4323-8 #### [facility] CLIA [id number] [address] [place] [address]64 Protein [Mass/Vol] 7.4 g/dL Normal 6.3-8.0 [facility] Comment on above: Order Comment: Laury bradshaw Type: BLOOD SPECIMEN Ordering Facility: [facility] Address: [address] [place] [address] Performed By: #### 2 4323-8 #### [facility] CLIA [id number] [address] [place] [address] Sodium [Moles/Vol] 142 mmol/L Normal 136-144 [facility] Comment on above: Order Comment: Speci men Type: BLOOD SPECIMEN Ordering Facility: [facility] Address: [address] [place] [address] Performed By: #### 2 4323-8 #### [facility] CLIA [id number] [address] [place] [address] Urea nitrogen [Mass/Vol] 12 mg/dL Normal 7-21 [facility] Comment on above: Order Comment: Speci men Type: BLOOD SPECIMEN Ordering Facility: [facility] Address: [address] [place] [address] Performed By: #### 2 4323-8 #### [facility] CLIA [id number] [address] [place] [address] Ferritin SerPl-mCncon 2023 Ferritin [Mass/Vol] 86.7 ng/mL Normal 14.7-205.1 [facility] Comment on above: Order Comment: Speci men Type: BLOOD SPECIMEN Ordering Facility: [facility] Address: [address] [place] [address] Performed By: #### 2 276-4, 9, 8 #### [facility] CLIA [id number] [address] [place] [address] [place] Folate SerPl-mCncon 09-05-19 Folate [Mass/Vol] 12.0 ng/mL Normal >4.7 [facility] Comment on above: Order Comment: Speci men Type: BLOOD SPECIMEN Ordering Facility: [facility] Address: [address] [place] [address] Performed By: #### 2 276-4, 9, 8 #### [facility] CLIA [id number] [address] [place] [address] [place] H. pylori IgG IA Qlon 2023 H. PYLORI IGG, QUAL Negative Normal Negative [facility] Comment on above: Order Comment: Laury bradshaw Type: BLOOD SPECIMEN Ordering Facility: [facility] Address: [address] [place] [address] Result Comment: Cash ot exclude H. pylori infection if the specimen collected 3-4 weeks after onset of symptoms. Performed By: #### 2 276-4, 2132-9, 2284-8 #### [facility] CLIA [id number] [address] [place] [address] [place] HbA1c (Bld)on 09-05-2023 Average glucose Estimated from glycated hemoglobin (Bld) [Mass/Vol] 108 mg/dL Normal [facility] Comment on above: Order Comment: Laury bradshaw Type: BLOOD SPECIMEN Ordering Facility: [facility] Address: [address] [place] [address] Result Comment: eAG: (Estimated average glucose) is a calculated value from HgbA1c and is automotive leasing sales representative of the average blood glucose level in the last 2-3 month period. Performed By: #### 5 5454-3 #### [facility] CLIA [id number] [address] [place] [address] [place] HbA1c (Bld) [Mass fraction] 5.4 % Normal 4.3-5.6 [facility] Comment on above: Order Comment: Laury bradshaw Type: BLOOD SPECIMEN Ordering Facility: [facility] Address: [address] [place] [address] Result Comment: [place] Diabetes Association guidelines indicate that patients with HgbA1c in the range 5.7-6.4% are at increased risk for development of diabetes, and intervention by lifestyle modification may be beneficial. HgbA1c greater or equal to 6.5% is considered diagnostic of diabetes. Performed By: #### 5 5454-3 #### [facility] CLIA [id number] [address] [place] [address] [place] Iron and Iron binding capaci ty panelon 09-05-2023 Iron [Mass/Vol] 94 ug/dL Normal 41-186 [facility] Comment on above: Order Comment: Speci men Type: BLOOD SPECIMEN Ordering Facility: [facility] Address: [address] [place] [address] Performed By: #### 5 0190-8, 3016-3, 11301-0 #### [facility] CLIA [id number] [address] [place] [address] [place] #### 92701-2 #### [facility] CLIA [id number] [address] [place] [address] [place] [facility] CLIA [id number] [address] [place], [place] [address] Iron binding capacity [Mass/Vol] 310 ug/dL Normal 232-386 [facility] Comment on above: Order Comment: Speci men Type: BLOOD SPECIMEN Ordering Facility: [facility] Address: [address] [place] [address] Performed By: #### 5 0190-8, 6-3, 43405-8 #### [facility] CLIA [id number] [address] [place] [address] [place] #### 77677-6 #### [facility] CLIA [id number] [address] [place] [address] [place] [facility] CLIA [id number] [address] [place] [address] Iron/TIBC [Molar ratio] 30.3 % Normal 15.0-57.0 [facility] Comment on above: Order Comment: Speci men Type: BLOOD SPECIMEN Ordering Facility: [facility] Address: [address] [place] [address] Performed By: #### 5 0190-8, 3016-3, 73174-5 #### [facility] CLIA [id number] [address] [place] [address] [place] #### 21282-8 #### [facility] CLIA [id number] [address] [place] [address] [place] [facility] CLIA [id number] [address] [place] [address] Lipid 1996 panelon 4 Cholesterol [Mass/Vol] 179 mg/dL Normal <200 [facility] Comment on above: Order Comment: Laury men Type: BLOOD SPECIMEN Ordering Facility: [facility] Address: [address] [place] [address] Result Comment: <200 mg/dL, Desirable 200-239 mg/dL, Borderline high >239 mg/dL, High Performed By: #### 2 276-4, 2132-01, 2283-12 #### [facility] CLIA [id number] [address] [place] [address] [place] Cholesterol in HDL [Mass/Vol] 45 mg/dL Normal >39 [facility] Comment on above: Order Comment: Laury bradshaw Type: BLOOD SPECIMEN Ordering Facility: [facility] Address: [address] [place] [address] Result Comment: 40-5 9 mg/dL, Acceptable >59 mg/dL, High: Negative risk factor for coronary heart disease <40 mg/dL, Low: Positive risk factor for coronary heart disease Performed By: #### 2 276-4, 2132-01, 2283-12 #### [facility] CLIA [id number] [address] [place] [address] [place] Cholesterol in LDL [Mass/Vol] 119 mg/dL High <100 [facility] Comment on above: Order Comment: Laury bradshaw Type: BLOOD SPECIMEN Ordering Facility: [facility] Address: [address] [place] [address] Result Comment: <100 mg/dL, Optimal 100-129 mg/dL, Near optimal/above optimal 130-159 mg/dL, Borderline high 160-189 mg/dL, High >189 mg/dL, Very high Secondary prevention optimal LDL Cholesterol levels are recommended to be < 70 mg/dL Performed By: #### 2 276-4, 2132-01, 2283-12 #### [facility] CLIA [id number] [address] [place] [address] [place] Cholesterol in LDL/Cholesterol in HDL [Mass ratio] 2.64 {ratio} High <2.54 [facility] Comment on above: Order Comment: Laury bradshaw Type: BLOOD SPECIMEN Ordering Facility: [facility] Address: [address] [place] [address] Result Comment: Refe sandrace: 1. National Cholesterol Education Program ATP III Guideline At-A-Glance Quick Desk Reference: National Heart, Lung, and Blood [place]. National Institutes of Health. 2001: NIH Publication No. 01-3305. 2. An International Atherosclerosis Society position paper: global recommendations for the management of dyslipidemia: executive summary, Atherosclerosis. 2014: 232(2):410-413. Performed By: #### 2 276-4, 2132-01, 2283-12 #### [facility] CLIA [id number] [address] [place] [address] [place] Cholesterol in VLDL [Mass/Vol] 15 mg/dL Normal <30 [facility] Comment on above: Order Comment: Laury bradshaw Type: BLOOD SPECIMEN Ordering Facility: [facility] Address: [address] [place] [address] Performed By: #### 2 276-4, 2132-01, 2283-12 #### [facility] CLIA [id number] [address] [place] [address] [place] Cholesterol non HDL [Mass/Vol] 134 mg/dL High <130 [facility] Comment on above: Order Comment: Laury bradshaw Type: BLOOD SPECIMEN Ordering Facility: [facility] Address: [address] [place] [address] Result Comment: <130 mg/dL, Optimal 130-159 mg/dL, Near optimal/above optimal 160-189 mg/dL, Borderline high 190-219 mg/dL, High >219 mg/dL, Very high Secondary prevention optimal non HDL Cholesterol levels are recommended to be <100 mg/dL Performed By: #### 2 276-4, 9, 2283-12 #### [facility] CLIA [id number] [address] [place] [address] [place] Cholesterol.total/Cho lesterol in HDL [Mass ratio] 3.98 {ratio} Normal <5.10 [facility] Comment on above: Order Comment: Speci men Type: BLOOD SPECIMEN Ordering Facility: [facility] Address: [address] [place] [address] Performed By: #### 2 276-4, 9, 2283-12 #### [facility] CLIA [id number] [address] [place] [address] [place] FASTING TIME 12 hrs Normal [facility] Comment on above: Order Comment: Speci men Type: BLOOD SPECIMEN Ordering Facility: [facility] Address: [address] [place] [address] Performed By: #### 2 276-4, 2132-01, 2283-12 #### [facility] CLIA [id number] [address] [place] [address] [place] Triglyceride [Mass/Vol] 74 mg/dL Normal <150 [facility] Comment on above: Order Comment: Speci men Type: BLOOD SPECIMEN Ordering Facility: [facility] Address: [address] [place] [address] Result Comment: <150 mg/dL, Normal 150-199 mg/dL, Borderline high 200-499 mg/dL, High >499 mg/dL, Very high Performed By: #### 2 276-4, 9, 2283-12 #### [facility] CLIA [id number] [address] [place] [address] [place] NT-proBNP [facility] 09-04 Natriuretic peptide.B prohormone N-Terminal [Mass/Vol] 48 pg/mL Normal <125 [facility] Comment on above: Order Comment: Speci men Type: BLOOD SPECIMEN Ordering Facility: [facility] Address: [address] [place] [address] Performed By: #### 2 276-4, 9, 8 #### [facility] CLIA [id number] [address] [place] [address] [place] TSH SerPl-aCncon 09-05-2023 TSH Qn 6.440 m[IU]/L High 0.270-4.200 [facility] Comment on above: Order Comment: Laury bradshaw Type: BLOOD SPECIMEN Ordering Facility: [facility] Address: [address] [place] [address] Result Comment: If t he patient is , TSH reference range varies by gestational period: First Trimester (weeks 9-12): 0.180-2.990 mIU/L Second Trimester: 0.110-3.980 mIU/L Third Trimester: 0.480-4.710 mIU/L Seth Crews et al. A Practical Approach for the Verifications and Determination of Site- and Trimester-Specific Reference Intervals for Thyroid Function tests in . Thyroid, 2019:29:3:412-420. Zhang E, et al. 2017 Guidelines of the [place] Thyroid Association for the Diagnosis and Management of Thyroid Disease during and the . Thyroid, 2017:27:3:315-389. Performed By: #### 2 276-4, 9, 8 #### [facility] CLIA [id number] [address] [place], [place] [id number] [place] VITAMIN B1 (THIAMINE), WHOLE BLOODon 09-05-2023 Thiamine (Bld) [Moles/Vol] 179.2 nmol/L Normal 84.3-213.3 [facility] Comment on above: Order Comment: Laury bradshaw Type: BLOOD SPECIMEN Ordering Facility: [facility] Address: [address] [place] [address] Result Comment: This assay measures the concentration of thiamine diphosphate (TDP), the primary active form of vitamin B1. Approximately 90 percent of vitamin B1 present in whole blood is TDP. Thiamine and thiamine monophosphate, which comprise the remaining 10 percent, are not measured. This test was developed and its performance characteristics determined by [facility]'s Kevin Que [facility] Pathology and Laboratory Medicine [place] ([facility]). It has not been cleared or approved by the FDA. -[facility] is regulated under CLIA as qualified to perform high-complexity testing. This test is used for clinical purposes. It should not be regarded as investigational or for research. Performed By: #### B 1WB #### [facility] CLIA [id number] [address] [place] [address] [place] Vit B12 SerPl-ncon 09-04- 024 Cobalamin (Vitamin B12) [Mass/Vol] 612 pg/mL Normal 232-1245 [facility] Comment on above: Order Comment: Speci men Type: BLOOD SPECIMEN Ordering Facility: [facility] Address: [address] [place] [address] Performed By: #### 2 276-4, 2132-9, 2284-8 #### [facility] CLIA [id number] [address] [place] [address] [place] Glucose - FINGER STICKon Glucose [Mass/Vol] 5.4 mg/dL [employer] Other PAP ACOG PANEL 2: 30 to 65on 06-10-2022 . . Normal [facility] Comment on above: Result Comment: Perf ormed at: WB Performed By: #### [id number] #### [facility] [address] [place] [address] Dr. Sachin Coates Age Gdln ACOG Testing 30-65 Normal [facility] Comment on above: Performed By: #### [id number] #### [facility] [address] [place] [address] Dr. Sachin Coates DIAGNOSIS: Comment Normal [facility] Comment on above: Result Comment: NEGA TIVE FOR INTRAEPITHELIAL LESION OR MALIGNANCY. CELLULAR CHANGES ASSOCIATED WITH INFLAMMATION ARE PRESENT. THIS SPECIMEN WAS RESCREENED PART OF OUR TEST BORE HELPER PROGRAM. Performed at: WB Performed By: #### [id number] #### [facility] [address] [place] [address] Dr. Sachin Coates HPV Aptima Negative Normal Negative [facility] Comment on above: Result Comment: This nucleic acid amplification test detects fourteen high-risk HPV types (16,18,31,33,35,39,45,51,52,56,58,59,66,68) without differentiation. Performed at: =G Performed By: #### [id number] #### [facility] [address] [address] [address] Sachin Coates HPV Genotype Reflex Comment Normal [facility] Comment on above: Result Comment: Crit eria not met, HPV Genotype not performed. Performed at: WB Performed By: #### [id number] #### [facility] [address] [place] [address] Dr. Sachin Coates Methodology: Comment Normal [facility] Comment on above: Result Comment: This liquid based ThinPrep(R) pap test was screened with the use of an image guided system. Performed at: WB Performed By: #### [id number] #### [facility] [address] [place] [address] Dr. Sachin Coates Note: Comment Normal [facility] Comment on above: Result Comment: The Pap smear is a screening test designed to aid in the detection of premalignant and malignant conditions of the uterine cervix. It is not a diagnostic procedure and should not be used as the sole means of detecting cervical cancer. Both false-positive and false-negative reports do occur. . Performed at: WB Performed By: #### [id number] #### [facility] [address] [place] [address] Dr. Sachin Coates Performed by: Comment Normal [facility] Comment on above: Result Comment: Peyton Beverly, Bootmaker Hand (ASCP) Performed at: WB Performed By: #### [id number] #### [facility] [address] [place] [address] Dr. Sachin Coates QC reviewed by: Comment Normal [facility] Comment on above: Result Comment: Cielo Cochran, Supervisory [employer]maker [employer] (ASCP) Performed at: WB Performed By: #### [id number] #### [facility] [address] [address] [address] Sachin Coates Specimen adequacy: Comment Normal [facility] Comment on above: Result Comment: Sati sfactory for evaluation. Endocervical and/or squamous metaplastic cells (endocervical component) are present. Performed at: WB Performed By: #### [id number] #### [facility] [address] [address] [address] Sachin Coates COVID-19 SOFIAOrdered By: Dario To on 12-02-2021 SARS-CoV+SARS-CoV-2 (COVID-19) Ag IA.rapid Ql (Resp) Negative Negative [facility] Comment on above: This is [...] Aug 08 2020 10:18AM EST (Author) Normal [employer] FIELD PROFESSIONAL - Procedure Visiton 0 07-10-2020 FIELD PROFESSIONAL - Procedure Visit Chief Complaint IUI Active [...] and personally supervised the entire procedure. Joelle Rmaos MD Signatures Electronically signed by : Joelle Dove MD; Jul 10 2020 11:12AM EST (Author) Electronically signed by : Joelle Ramos MD; Jul 11 2020 6:01PM EST (Author) Normal [employer] ESTRADIOLon 07-08-2020 ESTRADIOL 186 pg/mL Normal [facility] Comment on above: Result Comment: Estr adiol measurement is performed using the Nanoleaf Access Sensitive Estradiol Immunoassay. Estradiol testing is performed using a different test methodology at [facility] than other [facility]. Direct result comparison should only be made within the same method. REF VALUES EARLY FOLLICULAR 22-115 MID FOLLICULAR 25-115 OVULATORY PEAK 32-517 MID LUTEAL 37-246 POSTMENOPAUSE <15- 25 MALE <15- 32 Performed By: #### [facility] #### [facility] [address] [place] [address] Estradiol, Serumon E2 [Mass/Vol] 186 pg/mL -OBGYN-[facility] an 310 IVF Work Phone: Comment on above: Estradiol measuremen t is performed using the Shruthi [place] Access Sensitive Estradiol Immunoassay. Estradiol testing is performed using a different test methodology at [facility] than other [facility]. Direct result comparison should only be made within the same method.REF VALUESEARLY FOLLICULAR 22-115MID FOLLICULAR 25-115OVULATORY PEAK 32-517MID LUTEAL 37-246POSTMENOPAUSE <15- 25MALE <15- 32 LUTEINIZING HORMONEon 2020 LUTEINIZING HORMONE 9.5 IU/L Normal [facility] Comment on above: Result Comment: Lute inizing Hormone [LH] is performed using the Shruthi [place] Access Immunoassay. LH testing is performed using a different test methodology at [facility] than other [facility]. Direct result comparison should only be made within the same method. REF VALUES FOLLICULAR PHASE 1.5-10.0 MID-CYCLE 13.0-72.0 LUTEAL PHASE 0.5-13.0 MENOPAUSE 15.0-65.0 PREPUBERTY 0- 3.0 CHILDREN 0- 6.0 ADULT MALE 1.0- 9.0 Performed By: #### [facility] #### [facility] [address] [place] [address] Luteinizing Hormone, Serumon 07-08-2020 Lutropin Qn 9.5 {IU/L} WW-YGWST-Rdqw an 310 IVF Work Phone: Comment on above: Luteinizing Hormone [LH] is performed using the Shruthi Buck Mason Access Immunoassay. LH testing is performed using a different test methodology at [facility] than other [facility]. Direct result comparison should only be made within the same method.REF VALUESFOLLICULAR PHASE 1.5-10.0MID-CYCLE 13.0-72.0LUTEAL PHASE 0.5-13.0MENOPAUSE 15.0-65.0PREPUBERTY 0- 3.0CHILDREN 0- 6.0ADULT MALE 1.0- 9.0 TYPE + SCREENon 07-06-2020 ABO TYPE A Normal [facility] Comment on above: Performed By: #### T +S #### [facility] [address] [place] [address] RH TYPE Positive Normal [facility] Comment on above: Performed By: #### T +S #### [facility] [address] [place] [address] ESTRADIOLon 07-05-2020 ESTRADIOL 58 pg/mL Normal [facility] Comment on above: Result Comment: Estr adiol measurement is performed using the Shruthi Buck Mason Access Sensitive Estradiol Immunoassay. Estradiol testing is performed using a different test methodology at [facility] than other [facility]. Direct result comparison should only be made within the same method. REF VALUES EARLY FOLLICULAR 22-115 MID FOLLICULAR 25-115 OVULATORY PEAK 32-517 MID LUTEAL 37-246 POSTMENOPAUSE <15- 25 MALE <15- 32 Performed By: #### [facility] #### [facility] [address] [place] [address] Estradiol, Serumon 1 E2 [Mass/Vol] 58 pg/mL MG-OBGYN-Ri sm an 310 IVF Work Phone: Comment on above: Estradiol measuremen t is performed using the Shruthi Buck Mason Access Sensitive Estradiol Immunoassay. Estradiol testing is performed using a different test methodology at [facility] than other [facility]. Direct result comparison should only be made within the same method.REF VALUESEARLY FOLLICULAR 22-115MID FOLLICULAR 25-115OVULATORY PEAK 32-517MID LUTEAL 37-246POSTMENOPAUSE <15- 25MALE <15- 32 Hematologyon 07-05-2020 ABO group Nom (Bld) A MG-CLAIM CLERK-Rism an 310 IVF Work Phone: Blood group antibody screen Ql Negative SU-XSXIH-Ivlg an 310 IVF Work Phone: Rh immune globulin screen (Bld) [Interp] Positive MG-OBGYN-R ism an 310 IVF Work Phone: LUTEINIZING HORMONEon 2020 LUTEINIZING HORMONE 9.2 IU/L Normal [facility] Comment on above: Result Comment: Lute inizing Hormone [LH] is performed using the Shruthi Buck Mason Access Immunoassay. LH testing is performed using a different test methodology at [facility] than other [facility]. Direct result comparison should only be made within the same method. REF VALUES FOLLICULAR PHASE 1.5-10.0 MID-CYCLE 13.0-72.0 LUTEAL PHASE 0.5-13.0 MENOPAUSE 15.0-65.0 PREPUBERTY 0- 3.0 CHILDREN 0- 6.0 ADULT MALE 1.0- 9.0 Performed By: #### L #### [facility] [address] [place] [address] Luteinizing Hormone, Serumon 07-05-2020 Lutropin Qn 9.2 {IU/L} VE-UIKOZ-Hkuk an 310 IVF Work Phone: Comment on above: Luteinizing Hormone [LH] is performed using the Shruthi J Carlos Access Immunoassay. LH testing is performed using a different test methodology at [facility] than other [facility]. Direct result comparison should only be made within the same method.REF VALUESFOLLICULAR PHASE 1.5-10.0MID-CYCLE 13.0-72.0LUTEAL PHASE 0.5-13.0MENOPAUSE 15.0-65.0PREPUBERTY 0- 3.0CHILDREN 0- 6.0ADULT MALE 1.0- 9.0 FIELD PROFESSIONAL - Office Visiton 02-0 FIELD PROFESSIONAL - Office Visit Diagnoses/Problems Assessed Morbid obesity [...] MD [facility] [phone] Julien [phone] [place] 1 Amended By: Bayron Mccarty; Jun [...] MD [facility] [phone] Julien [phone] [place] Appointment Duration:. 25 minutes; greater than half of the time was spent on counseling. 1 Amended By: Bayron Mccarty; Jun 19 2020 10:16 AM ESTChief Complaint follow up History of Present Dvmsikw4706/19/2020 9:30AM JALEESA ARRIETA , 30 year is contacted for an (audio-visual, or audio only) Telehealth visit. Today's visit was provided through telemedicine conferencing: Using [employer] platform. Consent: The concept of telemedicine? has [...] right tube AMH 6.36 1 Amended By: Bayorn Mccarty; Jun 19 2020 10:16 AM ESTActive [...] is a telehealth appointment Results/Data HCG, Beta Vovuxcbgoklk61Old6137 11:58AMBayron Mccarty Test NameResultFlagReference HCG, Beta Quantitative<2 [...] performed using a different test methodology at [facility] than other [facility]. Direct result comparison should only be made within the same method. REF VALUES NON FEMALE <5 MALES <5 Progesterone, Chldy46Mml0356 11:58AMBayron Mccarty Test NameResultFlagReference Progesterone, Serum10.5 ng/mL REF VALUES MALE <0.3- 1.2 FOLLICULAR PHASE <0.3- 1.4 LUTEAL PHASE 3.3-25.6 MID-LUTEAL PHASE 4.4-28.0 POSTMENOPAUSAL <0.3- 0.7 FEMALES: 1ST TRIMESTER 11.2- 90.0 2ND TRIMESTER 25.6- 89.4 3RD TRIMESTER 48.4-422.5 . Patients receiving DHEA-S supplements may show false elevation of progesterone for results near 1.0 ng/mL. Contact laboratory at [phone] if alternative testing is needed. CMV IgG and IgM Py72Gvl1625 11:58AMFindley, Bayron Test NameResultFlagReference CMV IgG AntibodyREACTIVEASee Below Reference Range: NONREACTIVE CMV IGM [id number] 11:58AMBibianaBayron Test NameResultFlagReference CMV IGM AB<30.00 AU/mL [...] testing in two or more weeks. Xray Nxtxhveumduzvncyxfw50Eqw 2020 12:00AMBayron Mccarty [Mar 28, 2020 9:43AM Bayron Mccarty] Reason: Unspecified for Xray Hysterosalpingogram Test NameResultFlagReference Xray Hysterosalpingogram Please click on the link to view the study images Anti Mullerian Riivmhc33Xqd3267 12:03PMBayron Mccarty Test NameResultFlagReference Anti Mullerian Hormone6.36 ng/mL For assays employing antibodies, the possibility exists for interference by heterophile antibodies in the samples.1 1.Oswald Crews. Interferences in Immunoassays - still a threat. Clin. Chem. 2000; 46: 3464-6707. This test was developed and its performance characteristics determined by [employer]. It has not been cleared or approved by the Food and Drug Administration. Reference Range: Females 26 - 30y: 1.03 - 11.10 Median 4.20 AMH concentrations of >= 1.06 ng/mL is correlated with a better response to ovarian stimulation, produced more retrievable oocytes and higher odds of live according to Carey et al. Fertility and Sterility. 2010: 94:9417-1839. The current AMH test method correlates with [...] exclude an AMH-secreting ovarian tumor. Rubella IgG Vxdlokai62Wiz1999 12:03PMBayron Mccarty Test NameResultFlagReference Rubella IgG AntibodyPOSITIVE [...] TSH WITH REFLEX TO FREE T4 IF [id number] 12:03PMBayron Mccarty Test NameResultFlagReference Thyroid Stimulating Hormone, Serum2.17 mIU/LSee Below Reference Range: 0.44 - 3.98 TSH testing is performed using different testing methodology at [facility] than at other [facility]. Direct result comparisons should only be made within the same method. Varicella Zoster IgG Uroxhzif18Dye3067 12:03PMBayron Mccarty Test NameResultFlagReference Varicella Zoster IgG [...] altered results in serological assays. Vitamin D 25-Tyhnmdd56Qbz6148 12:03PMBayron Mccarty Test NameResultFlagReference Vitamin D 25-Hydroxy, Level17 ng/mLA . DEFICIENCY: < 20 NG/ML INSUFFICIENCY: 20-29 NG/ML SUFFICIENCY: 30-100 NG/ML THIS ASSAY ACCURATELY QUANTIFIES THE SUM OF VITAMIN D3, 25-HYDROXY AND VIT D2,25-HYDROXY. { 17-Hydroxyprogesterone, Angbb49Ptr8492 12:03Bayron Silva Test NameResultFlagReference 17-Hydroxyprogesterone, Serum33 ng/dL [...] Endocrinol Metab. 1991;73:674-686; J Clin Endocrinol Metab. 1989;69;9573-0978; J Clin Endocrinol Metab. 1994;78:226-270. Pediatr Res 1988;23:525-529. MedLinePlus (accessed 10/25/13). This test was developed and its analytical performance characteristics have been determined by [employer] [place], [place]. It has not been cleared or approved by the U.S. Food and Drug Administration. This assay has been validated pursuant to the CLIA regulations and is used for clinical purposes. DHEA Sulfate, Uujbt80Rfy6649 12:03Bayron Silva Test NameResultFlagReference DHEA Sulfate, Oejls262 ug/dL65 - 395 MATURITY-BASED REFERENCE RANGES: PUBERTAL [...] laboratory for further information. Testosterone Free + Lqoxk15Amx4527 12:03PMBayron Mccarty Test NameResultFlagReference Testosterone, Total63 ng/dLH2-45 For additional information, please refer to http://education.Playthe.net/faq/ TotalTestosteroneLCMSMSF AQ165 (This link is being provided for informational/ educational purposes only.) This test was developed and its analytical performance characteristics have been determined by [employer] [place], [place]. It has not been cleared or approved by the U.S. Food and Drug Administration. This assay has been validated pursuant to the CLIA regulations and is used for clinical purposes. Testosterone, Free Serum8.8 pg/mLH0.1-6.4 This test was developed and its analytical performance characteristics have been determined by [employer] [place], [place]. It has not been cleared or approved by the U.S. Food and Drug Administration. This assay has been validated pursuant to the CLIA regulations and is used for clinical purposes. Hemoglobin [id number] 12:03PMBayron Mccarty Test NameResultFlagReference Hemoglobin A1C, Level5.5 % Diagnosis of Diabetes-Adults Non-Diabetic: < or = 5.6% Increased risk for developing diabetes: 5.7-6.4% Diagnostic of diabetes: > or = 6.5% . Monitoring of Diabetes Age (y) Therapeutic Goal (%) Adults: >18 <7.0 Pediatrics: 13-18 <7.5 7-12 <8.0 0- 6 7.5-8.5 [employer]. Diabetes Care 33(S1), May 2009. Estimated Average Bynuvkp060 MG/DL GC + Chlamydia By Amplified Cqfqzkslz27Clo0033 12:03PMBayron Mccarty Test NameResultFlagReference N.GONORRHEA,AMPLIFIEDNEG ATIVENegative SOURCE: Urine Chlamydia Trach, AmplifiedNEGATIVENegativ e Hepatitis B Surface Orpmfyw49Tfm5362 12:03PMBayron Mccarty Test NameResultFlagReference Hep.B Surface AgNONREACTIVESee Below Reference Range: NONREACTIVE Biotin interference may cause falsely decreased results. Patients taking a Biotin dose of up to 5 mg/day should refrain from taking Biotin for 24 hours before sample collection. Providers may contact their local laboratory for further information. Hepatitis C Antibody Pkhd01Chd0440 12:03PMBayron Mccarty Test NameResultFlagReference Hepatitis C-AntibodyNONREACTIVESee Below Reference Range: NONREACTIVE Results from patients taking biotin supplements or receiving high-dose biotin therapy should be interpreted with caution due to possible interference with this test. Providers may contact their local laboratory for further information. HIV 1/2 ANTIGEN/ANTIBODY SCREEN WITH REFLEX TO [id number] 12:03PMBayron Mccarty Test NameResultFlagReference HIV 1/2 AG/AB SCREENNONREACTIVESee Below Reference Range: NONREACTIVE HIV Ag/Ab screen is performed using the Siemens Neptune Software ASllHeyKiki HIV Ag/Ab Combo assay which detects the presence of HIV p24 antigen as well as antibodies to HIV-1 (Group M and O) and HIV-2. SYPHILIS SCREENING WITH [id number] 12:03Bayron Silva Test NameResultFlagReference SYPHILIS TOTAL ANTIBODYNONREACTIVESee Below SOURCE: Reference Range: NONREACTIVE No significant level of Treponema pallidum antibody detected. Repeat testing in 2 to 4 weeks may be considered if early infection or incubating syphilis infection is suspected. Signatures Electronically signed by : Bayron Mccarty MD; Jun 19 2020 10:16AM EST (Author) Normal [employer] CMV IGM ABon 04-20-2020 CMV IGM AB <30.00 [facility] Comment on above: Result Comment: REFE [...] weeks. Performed By: #### C MVM2 #### [employer] [facility] [address] [place] [address] CMV IGG AND IGM ABon 020 CMV IGG AB REACTIVE Abnormal NONREACTIVE [facility] Comment on above: Performed By: #### C MV2 #### [facility] [address] [place] [address] PROGESTERONEon 04-16-2020 PROGESTERONE 10.5 ng/mL [facility] Comment on above: Result Comment: REF VALUES MALE <0.3- 1.2 FOLLICULAR PHASE <0.3- 1.4 LUTEAL PHASE 3.3-25.6 MID-LUTEAL PHASE 4.4-28.0 POSTMENOPAUSAL <0.3- 0.7 FEMALES: 1ST TRIMESTER 11.2- 90.0 2ND TRIMESTER 25.6- 89.4 3RD TRIMESTER 48.4-422.5 . Patients receiving DHEA-S supplements may show false elevation of progesterone for results near 1.0 ng/mL. Contact laboratory at [phone] if alternative testing is needed. Performed By: #### P BOBBY #### [facility] [address] [place] [address] HCG,BETA-QUANTITATIVEon HCG,BETA-QUANTITATIVE <2 Normal [facility] Comment on above: Result Comment: Low- [...] performed using a different test methodology at [facility] than other system hospitals. Direct result comparison should only be made within the same method. REF VALUES NON FEMALE <5 MALES <5 Performed By: #### H QU #### [address] [id number] FIELD PROFESSIONAL - Office Visiton FIELD PROFESSIONAL - Office Visit Chief Complaint An interactive [...] test results. Roby JEWELL. History of Present Kzixklx3304/14/2020 9:30AM JALEESA ARRIETA , 30 year is contacted for an (audio-visual, or audio only) Telehealth visit. Today's visit was provided through telemedicine conferencing: Using [employer] platform. Consent: The concept of telemedicine? has [...] Allergies No Known Drug Allergies Recorded By: Berezy Jasso; 01/24/2020 11:18:28 AM Current Meds Vitamin D 25 MCG (1000 UT) Oral Tablet; Therapy: [id number] to Recorded Dispense: 0 Days ; #: Sufficient Tablet; Refill: 0; KEVIN = N; Record; Last Updated By: Breezy Jasso; 2020 1:15:24 PM Vitals Vital Signs Recorded: 27Wlg3040 09:08AM Height5 ft 6 in Jvqqcg180 lb BMI Zqcsxiylkx47.81 BSA Calculated2.34 DBQ11Xdu2525 Gravida1 Para0 Pain Scale0 Physical Exam This is a telehealth appointment Results/Data Anti Mullerian Jeenynf64Fpb4066 12:03PMBayron Mccarty Test NameResultFlagReference Anti Mullerian Hormone6.36 ng/mL For assays employing antibodies, the possibility exists for interference by heterophile antibodies in the samples.1 1.Oswald Crews. Interferences in Immunoassays - still a threat. Clin. Chem. 2000; 46: 3798-6818. This test was developed and its performance characteristics determined by [employer]. It has not been cleared or approved by the Food and Drug Administration. Reference Range: Females 26 - 30y: 1.03 - 11.10 Median 4.20 AMH concentrations of >= 1.06 ng/mL is correlated with a better response to ovarian stimulation, produced more retrievable oocytes and higher odds of live according to Gleicher et al. Fertility and Sterility. 2010: 94:5380-5450. The current AMH test method correlates with [...] exclude an AMH-secreting ovarian tumor. Anti Mullerian Ngdijfc46Vco9093 12:03PMBayron Mccarty Test NameResultFlagReference Anti Mullerian Hormone6.36 ng/mL For assays employing antibodies, the possibility exists for interference by heterophile antibodies in the samples.1 1.Oswald Brunner Interferences in Immunoassays - still a threat. Clin. Chem. 2000; 46: 4284-9420. This test was developed and its performance characteristics determined by [employer]. It has not been cleared or approved by the Food and Drug Administration. Reference Range: Females 26 - 30y: 1.03 - 11.10 Median 4.20 AMH concentrations of >= 1.06 ng/mL is correlated with a better response to ovarian stimulation, produced more retrievable oocytes and higher odds of live according to Gleicher et al. Fertility and Sterility. 2010: 94:6582-3172. The current AMH test method correlates with [...] exclude an AMH-secreting ovarian tumor. Rubella IgG Tsftwhko40Npn9700 12:03PMBayron Mccarty Test NameResultFlagReference Rubella IgG AntibodyPOSITIVE [...] TSH WITH REFLEX TO FREE T4 IF [id number] 12:03PMBayron Mccarty Test NameResultFlagReference Thyroid Stimulating Hormone, Serum2.17 mIU/LSee Below Reference Range: 0.44 - 3.98 TSH testing is performed using different testing methodology at [facility] than at other [facility]. Direct result comparisons should only be made within the same method. Varicella Zoster IgG Hgfhwola32Cim1484 12:03PMBayron Mccarty Test NameResultFlagReference Varicella Zoster IgG [...] altered results in serological assays. Vitamin D 25-Tjjgrtt98Yoh4749 12:03PMBayron Mccarty Test NameResultFlagReference Vitamin D 25-Hydroxy, Level17 ng/mLA . DEFICIENCY: < 20 NG/ML INSUFFICIENCY: 20-29 NG/ML SUFFICIENCY: 30-100 NG/ML THIS ASSAY ACCURATELY QUANTIFIES THE SUM OF VITAMIN D3, 25-HYDROXY AND VIT D2,25-HYDROXY. { 17-Hydroxyprogesterone, Phcjj86Beh5988 12:03PMBayron Mccarty Test NameResultFlagReference 17-Hydroxyprogesterone, Serum33 ng/dL [...] Endocrinol Metab. 1991;73:674-686; J Clin Endocrinol Metab. 1989;69;9519-2140; J Clin Endocrinol Metab. 1994;78:226-270. Pediatr Res 1988;23:525-529. MedLinePlus (accessed 10/25/13). This test was developed and its analytical performance characteristics have been determined by [employer] [place], [place]. It has not been cleared or approved by the U.S. Food and Drug Administration. This assay has been validated pursuant to the CLIA regulations and is used for clinical purposes. DHEA Sulfate, Woxjv08Myw2276 12:03PMBayron Mccarty Test NameResultFlagReference DHEA Sulfate, Defte578 ug/dL65 - 395 MATURITY-BASED REFERENCE RANGES: PUBERTAL [...] laboratory for further information. Testosterone Free + Tfhlh09Url2514 12:03PMBayron Mccarty Test NameResultFlagReference Testosterone, Total63 ng/dLH2-45 For additional information, please refer to http://education.Playthe.net/faq/ TotalTestosteroneLCMSMSF AQ165 (This link is being provided for informational/ educational purposes only.) This test was developed and its analytical performance characteristics have been determined by [employer] [place], [place]. It has not been cleared or approved by the U.S. Food and Drug Administration. This assay has been validated pursuant to the CLIA regulations and is used for clinical purposes. Testosterone, Free Serum8.8 pg/mLH0.1-6.4 This test was developed and its analytical performance characteristics have been determined by [employer] [place], [place]. It has not been cleared or approved by the U.S. Food and Drug Administration. This assay has been validated pursuant to the CLIA regulations and is used for clinical purposes. Hemoglobin [id number] 12:03PMBayron Mccarty Test NameResultFlagReference Hemoglobin A1C, Level5.5 % Diagnosis of Diabetes-Adults Non-Diabetic: < or = 5.6% Increased risk for developing diabetes: 5.7-6.4% Diagnostic of diabetes: > or = 6.5% . Monitoring of Diabetes Age (y) Therapeutic Goal (%) Adults: >18 <7.0 Pediatrics: 13-18 <7.5 7-12 <8.0 0- 6 7.5-8.5 [employer]. Diabetes Care 33(S1), May 2009. Estimated Average Dfjjygz327 MG/DL GC + Chlamydia By Amplified [id number] 12:03PMBayron Mccarty Test NameResultFlagReference N.GONORRHEA,AMPLIFIEDNEG ATIVENegative SOURCE: Urine Chlamydia Trach, AmplifiedNEGATIVENegativ e Hepatitis B Surface Eeihdgb77Nxc7661 12:03Bayron Silva Test NameResultFlagReference Hep.B Surface AgNONREACTIVESee Below Reference Range: NONREACTIVE Biotin interference may cause falsely decreased results. Patients taking a Biotin dose of up to 5 mg/day should refrain from taking Biotin for 24 hours before sample collection. Providers may contact their local laboratory for further information. Hepatitis C Antibody [id number] 12:03PMBayron Mccarty Test NameResultFlagReference Hepatitis C-AntibodyNONREACTIVESee Below Reference Range: NONREACTIVE Results from patients taking biotin supplements or receiving high-dose biotin therapy should be interpreted with caution due to possible interference with this test. Providers may contact their local laboratory for further information. HIV 1/2 ANTIGEN/ANTIBODY SCREEN WITH REFLEX TO [id number] 12:03PMBerryBayron mccarthy Test NameResultFlagReference HIV 1/2 AG/AB SCREENNONREACTIVESee Below Reference Range: NONREACTIVE HIV Ag/Ab screen is performed using the Siemens AtellHey[employer]iki HIV Ag/Ab Combo assay which detects the presence of HIV p24 antigen as well as antibodies to HIV-1 (Group M and O) and HIV-2. SYPHILIS SCREENING WITH CQZANG86Icg6064 12:03PMBibiana Bayron Test NameResultFlagReference SYPHILIS TOTAL ANTIBODYNONREACTIVESee Below SOURCE: Reference Range: NONREACTIVE No significant level of Treponema pallidum antibody detected. Repeat testing in 2 to 4 weeks may be considered if early infection or incubating syphilis infection is suspected. Diagnoses/Problems Irregular menses (626.4) (N92.6) Morbid obesity (278.01) (E66.01) Orders HCG, Beta Quantitative; Status:Active; Requested for:83Wtu9307; Perform:Lab Services - Lab To Draw (Blood Test); Due:13Jul2020;Ordered; For:Irregular menses; Ordered By:Bayron Mccarty; Progesterone, Serum; Status:Active; Requested for:58Tur3396; Perform:Lab Services - Lab To Draw (Blood [...] [facility] [phone] [place] [phone] [place] Appointment Duration:. 25 minutes; greater than half [...] MD [facility] [phone] [place] [phone] [place] 1 Amended By: Bayron Mccarty; Apr 14 2020 4:50 PM ESTSignatures Electronically signed by : Bayron Mccarty MD; Apr 14 2020 4:51PM EST (Author) Normal [facility] FIELD PROFESSIONAL - Procedure Visiton 1 05-28-2019 FIELD PROFESSIONAL - Procedure Visit Chief Complaint pt presents [...] 1 CAPSULE EVERY 12 HOURS DAILY; Therapy: 20Kfx0974 to (Evaluate:69Qau0814) Requested for: 64Gxe7288; Last Rx:58Rcg1556 Ordered Rx By: Bayron Mccarty; Dispense: 5 Days ; #:10 Capsule; Refill: 0;For: Fertility testing; KEVIN = N; Verified Transmission to [place] [address]; Msg to Pharmacy: start medication the night before her procedure; Last Updated By: Elham [employer]; 01/24/2020 12:08:27 PM Vitamin D 25 MCG (1000 UT) Oral Tablet; Therapy: 46Lbf7958 to Recorded Dispense: 0 Days ; #: [...] Mccarty Signatures Electronically signed by : Kelle Vaz, FRED-SCOOPER; Mar 28 2020 4:10PM EST (Author) Normal [facility] FIELD PROFESSIONAL - Office Visiton 11-0 FIELD PROFESSIONAL - Office Visit Chief Complaint The patient [...] is considering single parent procreation. 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 Ng in [place]. Active Problems Female infertility (628.9) (N97.9) Fertility [...] 1 CAPSULE EVERY 12 HOURS DAILY; Therapy: 09Ayl6451 to (Evaluate:99Bfy3593) Requested for: 70Vda6082; Last Rx:[id number] Ordered Rx By: Bayron Mccarty; Dispense: 5 Days ; #:10 Capsule; Refill: 0; For: Fertility testing; KEVIN = N; Verified Transmission to [place] [address]; Msg to Pharmacy: start medication the night before her procedure; Last Updated By: [employer]; 01/24/2020 12:08:27 PM Vitamin D 25 MCG (1000 UT) Oral Tablet; Therapy: 89Rmv5636 to Recorded Dispense: 0 Days ; #: Sufficient Tablet; Refill: 0; KEVIN = N; Record; Last Updated By: Breezy Jasso; 2020 1:15:24 PM Vitals Vital Signs Recorded: 13Mar2020 01:08PM Heart Rate96 Jepqdiao375 Gaeofvayw23 Height5 ft 6 in Hxdulm360 lb BMI Dekfhsmpej73.91 BSA Calculated2.39 Tobacco Useb) No Fall Screeninga) No falls within the last year [id number] Gravida1 Para0 Pain Scale0 Diagnoses/Problems Morbid obesity [...] consultation of which greater than 50% was tfgn-mw-gqwn counseling. Weight loss prior to conception is [...] MD; Jun 12 2020 4:50PM EST Normal [facility] ANTI MULLERIAN HORMONEon ANTI MULLERIAN HORMONE 6.36 ng/mL Normal [facility] Comment on above: Result Comment: For assays employing antibodies, the possibility exists for interference by heterophile antibodies in the samples.1 1.Oswald Crews. Interferences in Immunoassays - still a threat. Clin. Chem. 2000; 46: 4980-0554. This test was developed and its performance characteristics determined by [employer]. It has not been cleared or approved by the Food and Drug Administration. Reference Range: Females 26 - 30y: 1.03 - 11.10 Median 4.20 AMH concentrations of >= 1.06 ng/mL is correlated with a better response to ovarian stimulation, produced more retrievable oocytes and higher odds of live according to Carey et al. Fertility and Sterility. 2010: 94:6763-6398. The current AMH test method correlates with [...] ovarian tumor. Performed By: #### A #### [employer] [address] [place] [address] [id number] 17-HYDROXYPROGESTERONEon 17-HYDROXYPROGESTERON E 33 ng/dL Normal [facility] Comment on above: Result Comment: Unable to [...] Endocrinol Metab. 1991;73:674-686; J Clin Endocrinol Metab. 1989;69;4550-8652; J Clin Endocrinol Metab. 1994;78:226-270. Pediatr Res 1988;23:525-529. MedLinePlus (accessed 10/25/13). This test was developed and its analytical performance characteristics have been determined by [employer] [place], [place]. It has not been cleared or approved by the U.S. Food and Drug Administration. This assay has been validated pursuant to the CLIA regulations and is used for clinical purposes. Performed By: #### 1 7[facility] #### [facility] [address] [place] [address] TESTOST,FREE AND TOTALon TESTOSTERONE TOT.LC/MS/MS 63 ng/dL High 2-45 [facility] Comment on above: Result Comment: For additional information, please refer to [email or web address].Joldit.com/faq/ [email or web address] (This link is being provided for informational/ educational purposes only.) This test was developed and its analytical performance characteristics have been determined by [employer] [place], [place]. It has not been cleared or approved by the U.S. Food and Drug Administration. This assay has been validated pursuant to the CLIA regulations and is used for clinical purposes. Performed By: #### G [facility] #### [facility] [address] [place] [address] TESTOSTERONE,FREE 8.8 pg/mL High 0.1-6.4 [facility] Comment on above: Result Comment: This test was developed and its analytical performance characteristics have been determined by [employer] [place], [place]. It has not been cleared or approved by the U.S. Food and Drug Administration. This assay has been validated pursuant to the CLIA regulations and is used for clinical purposes. Performed By: #### G [facility] #### [facility] [address] [place] [address] DHEA SULFATEon 01-25-2020 DHEA SULFATE 214 ug/dL Normal 65 - 395 [facility] Comment on above: Result Comment: JOANNA MALDONADO-BASED [...] for further information. Performed By: #### G [facility] #### [facility] [address] [place] [address] GC + CHLAMYDIA BY AMPLIFIED DETECTIONon 01-25-2020 CHLAMYDIA TRACH.,AMPLIFIED Negative Normal Negative [facility] Comment on above: Performed By: #### G CCHA #### [facility] [address] [place] [address] N.GONORRHEA,AMPLIFIED Negative Normal Negative [facility] Comment on above: Performed By: #### [facility] #### [facility] [address] [place] [address] HEPATITIS B SURFACE AGon HEP.B SURFACE AG NONREACTIVE Normal NONREACTIVE [facility] Comment on above: Result Comment: Biot in interference may cause falsely decreased results. Patients taking a Biotin dose of up to 5 mg/day should refrain from taking Biotin for 24 hours before sample collection. Providers may contact their local laboratory for further information. Performed By: #### G [facility] #### [facility] [address] [place] [address] HEPATITIS C ABon 01-25-2020 HEPATITIS C AB NONREACTIVE Normal NONREACTIVE [facility] Comment on above: Result Comment: Resu lts from patients taking biotin supplements or receiving high-dose biotin therapy should be interpreted with caution due to possible interference with this test. Providers may contact their local laboratory for further information. Performed By: #### H CVAB #### [facility] [address] [place], [place] HIV ANTIGEN/ANTIBODY SCREENo n 01-25-2020 HIV AG/AB SCREEN NONREACTIVE Normal NONREACTIVE [facility] Comment on above: Result Comment: HIV Ag/Ab screen is performed using the Siemens Neptune Software ASllHeyKiki HIV Ag/Ab Combo assay which detects the presence of HIV p24 antigen as well as antibodies to HIV-1 (Group M and O) and HIV-2. Performed By: #### G [facility] #### [facility] [address] [place] [address] RUBELLA IGG ABon 01-25-2020 RUBELLA IGG AB Positive Normal [facility] Comment on above: Result Comment: [...] assays. Performed By: #### R UBIG #### [facility] [address] [place] [id number] SYPHILIS SCREENING WITH REFL EXon 01-25-2020 SYPHILIS TOTAL AB NONREACTIVE Normal NONREACTIVE [facility] Comment on above: Result Comment: No s ignificant level of Treponema pallidum antibody detected. Repeat testing in 2 to 4 weeks may be considered if early infection or incubating syphilis infection is suspected. Performed By: #### S YPHR #### [facility] [address] [place] [address] TSH WITH REFLEX TO FREE T4 I F ABNORMALon 01-25-2020 TSH Qn 2.17 m[IU]/L Normal 0.44 - 3.98 [facility] Comment on above: Result Comment: TSH testing is performed using different testing methodology at [facility] than at other [facility]. Direct result comparisons should only be made within the same method. Performed By: #### G CCHA #### [facility] [address] [place] [address] VARICELLA ZOSTER IGG ABon VARICELLA ZOSTER IGG AB Negative Normal NEGATIVE [facility] Comment on above: Result Comment: INTE RPRETATIVE [...] assays. Performed By: #### V ARZG #### [facility] [address] [place] [address] VITAMIN D, 25-HYDROXYon 01-10 VITAMIN D, 25-HYDROXY 17 ng/mL Abnormal [facility] Comment on above: Result Comment: . DEFICIENCY: < 20 NG/ML INSUFFICIENCY: 20-29 NG/ML SUFFICIENCY: 30-100 NG/ML THIS ASSAY ACCURATELY QUANTIFIES THE SUM OF VITAMIN D3, 25-HYDROXY AND VIT D2,25-HYDROXY. { Performed By: #### G CCHA #### [facility] [address] [place] [address] GC + CHLAMYDIA BY AMPLIFIED DETECTIONon 01-24-2020 Lab Specimen Source Urine Normal [facility] Comment on above: Performed By: #### G CCHA #### [facility] [address] [place] [address] HEMOGLOBIN A1Con 01-24-2020 HbA1c (Bld) [Mass fraction] 5.5 % Normal [facility] Comment on above: Result Comment: Diag nosis of Diabetes-Adults Non-Diabetic: < or = 5.6% Increased risk for developing diabetes: 5.7-6.4% Diagnostic of diabetes: > or = 6.5% . Monitoring of Diabetes Age (y) Therapeutic Goal (%) Adults: >18 <7.0 Pediatrics: 13-18 <7.5 7-12 <8.0 0- 6 7.5-8.5 [employer]. Diabetes Care 33(S1), May 2009. Performed By: #### H BA1E #### [facility] [address] [place] [address] HbA1c (Bld) [Mass fraction] 111 MG/DL Normal [facility] Comment on above: Performed By: #### H BA1E #### [facility] [address] [place] [address] FIELD PROFESSIONAL - Office Visiton 01-10 FIELD PROFESSIONAL - Office Visit Chief Complaint 29 year [...] was treated with laparoscopic left salpingectomy in [facility]. 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: STDs: Yes, remote history of gonorrhea [...] PM Vitals Vital Signs Recorded: 24Jan2020 11:13AM Eqkopxhqakn32.7 F Heart Fxvw395 Lolwayls852 Wpsiitojs08 Height5 ft 6 in Grploe027 lb BMI Itjjuxyhpf27.13 BSA Calculated2.35 Tobacco Useb) No Fall Screeninga) No falls within the last year [id number] Gravida1 Para0 Pain Scale0 Diagnoses/Problems Female infertility (628.9) (N97.9) Fertility testing (V26.21) (Z31.41) Morbid obesity (278.01) (E66.01) Irregular menses (626.4) (N92.6) Screening for STD (sexually transmitted disease) (V74.5) (Z11.3) *Orders Anti Mullerian Hormone; Status:Active; Requested for:24Jan2020; Perform:Lab Services - Lab To Draw (Non-Blood Test); Due:20Hgx1635;Ordered; For:Female infertility, Fertility testing, Irregular menses, Morbid obesity; Ordered By:Bayron Mccarty; Start: Doxycycline Monohydrate 100 MG Oral Capsule; TAKE 1 CAPSULE EVERY 12 HOURS DAILY Rx By: Bayron Mccarty; Dispense: 5 Days ; #:10 Capsule; Refill: 0; For: Fertility testing; KEVIN = N; Verified Transmission to [place] [address]; Msg to Pharmacy: start medication the night before her procedure; Last Updated By: Cindi Lizarraga; 01/24/2020 12:08:27 PM Maternal Medicine Referral Evaluation and Treatment Evaluate AND Treat Status: Hold For - Scheduling Requested for: 16Mkh3080 Ordered; For: Morbid obesity; Ordered By: Bayron Mccarty Performed: Due: 03Fex3898 17-Hydroxyprogesterone, Serum; Status:Active; Requested for:28Bhf0862; Perform:Lab Services - Lab To Draw (Blood Test); Due:59Ljv1136;Ordered; For:Screening for STD (sexually transmitted disease); Ordered By:Bayron Mccarty; DHEA Sulfate, Serum; Status:Active; Requested for:86Kne1349; Perform:Lab Services - Lab To Draw (Blood Test); Due:26Bfw3291;Ordered; For:Screening for STD (sexually transmitted disease); Ordered By:Bayron Mccarty; Hemoglobin A1C; Status:Active; Requested for:20Tjh1047; Perform:Lab Services - Lab To Draw (Blood Test); Due:03Ftj1194;Ordered; For:Screening for STD (sexually transmitted disease); Ordered By:Bayron Mccarty; Rubella IgG Antibody; Status:Active; Requested for:24Jan2020; Perform:Lab Services - Lab To Draw (Blood Test); Due:07Vmc8541;Ordered; For:Screening for STD (sexually transmitted disease); Ordered By:Bayron Mccarty; Testosterone Free + Total; Status:Active; Requested for:24Jan2020; Perform:Lab Services - Lab To Draw (Blood Test); Due:15Qae8185;Ordered; For:Screening for STD (sexually transmitted disease); Ordered By:Bayron Mccarty; TSH WITH REFLEX TO FREE T4 IF ABNORMAL; Status:Active; Requested for:24Jan2020; Perform:Lab Services - Lab To Draw (Blood Test); Due:88Jbv2862;Ordered; For:Screening for STD (sexually transmitted disease); Ordered By:Bayron Mccarty; Ultrasound Pelvis Transvaginal; Status:Hold For - Scheduling; Requested for:24Jan2020; Perform:[facility]; Order Comments:will call with menses to schedule; Due:10Rmq7518;Ordered; For:Screening for STD (sexually transmitted disease); Ordered By:Bayron Mccarty; Radiologist to Determine Optimal Study : Y What are the patient's signs and symptoms? : fert testing Varicella Zoster IgG Antibody; Status:Active; Requested for:77Cvv4322; Perform:Lab Services - Lab To Draw (Blood Test); Due:21Mxp2816;Ordered; For:Screening for STD (sexually transmitted disease); Ordered By:Bayron Mccarty; Vitamin D 25-Hydroxy; Status:Active; Requested for:50Fdy8131; Perform:Lab Services - Lab To Draw (Blood Test); Due:02Zpw3196;Ordered; For:Screening for STD (sexually transmitted disease); Ordered By:Bayron Mccarty; Xray Hysterosalpingogram; Status:Hold For - Scheduling; Requested for:73Qct3838; Perform:[facility]; Order Comments:will call with menses to schedule. schedule between -12. start doxycycline night prior to procedure; Due:78Jgg5758;Ordered; For:Screening for STD (sexually transmitted disease); Ordered By:Bayron Mccarty; Radiologist to Determine Optimal Study : Y What are the patient's signs and symptoms? : fert testing Tobacco Use Screening; Status:Complete; Done: 00Ibt0697 Perform:Not Applicable;Ordered; For:SocHx: Never a smoker; Ordered [...] sent to her home pharmacy ([facility] in [place]) [ ] Day 3 FSH, LH, E2 [x] AMH [x] TSH [x] Prolactin [x] Testosterone, DHEAS [x] HgA1C [x] STD screening [x ] Preconceptual screening including Rubella,Varicella, Blood type [ ] Genetic Screen with [employer] - will consider [ ] Take vitamins [x] Return to see AUXILIARY OPERATOR after workup complete to discuss management [...] REFL EXon 01-24-2020 Lab Specimen Source Normal [facility] Comment on above: Performed By: #### S YPHR #### [facility] [address] [place] [address] Performed By: #### Jovany ARZG #### [facility] [address] [place] [address] Performed By: #### R UBIG #### [facility] [address] [place] [address] Vital Signs Date Time Vital Sign Value Performing Clinician Facility 05-03-2024 15:110500 Body mass index (BMI) [Ratio] 49.09 kg/m2 Mena Loretto PA Work Phone: [facility] 05-03-2024 15:11-0500 Body weight 137.95 kg Mena Loretto PA Work Phone: [facility] 05-03-2024 15:11-0500 Diastolic blood pressure 70 mm[Hg] Mena Loretto PA Work Phone: [facility] 05-03-2024 15:11-0500 Systolic blood pressure 120 mm[Hg] Mena Loretto PA Work Phone: [facility] 04-22-2024 09:51-0500 Body mass index (BMI) [Ratio] 49.45 kg/m2 Tacho Shon DO Work Phone: [facility] 04-22-2024 09:51-0500 Body weight 138.98 kg Tacho Shon DO Work Phone: [facility] 04-22-2024 09:51-0500 Diastolic blood pressure 80 mm[Hg] Tacho Shon DO Work Phone: [facility] 04-22-2024 09:51-0500 Systolic blood pressure 130 mm[Hg] Tacho Shon DO Work Phone: [facility] 04-06-2024 14:10-0500 Body mass index (BMI) [Ratio] 48.58 kg/m2 Mena Loretto PA Work Phone: [facility] 04-06-2024 14:10-0500 Body weight 136.53 kg Mena Marissa PA Work Phone: [facility] 04-06-2024 14:10-0500 Diastolic blood pressure 80 mm[Hg] Mena Loretto PA Work Phone: [facility] 04-06-2024 14:10-0500 Systolic blood pressure 128 mm[Hg] Mena Marissa PA Work Phone: [facility] 03-22-2024 14:14-0500 Body mass index (BMI) [Ratio] 48.92 kg/m2 Tacho Shon DO Work Phone: [facility] 03-22-2024 14:14-0500 Body weight 137.49 kg Tacho Shon DO Work Phone: [facility] 03-22-2024 14:14-0500 Diastolic blood pressure 84 mm[Hg] Tacho Shon DO Work Phone: [facility] 03-22-2024 14:14-0500 Systolic blood pressure 126 mm[Hg] Tacho Shon DO Work Phone: [facility] 03-05-2024 23:11-0400 Diastolic blood pressure 78 mm[Hg] [facility] Work Phone: [facility] 03-05-2024 23:11-0400 Heart rate 90 /min [facility] Work Phone: [facility] 03-05-2024 23:11-0400 Respiratory rate 18 /min [facility] Work Phone: [facility] 03-05-2024 23:11-0400 SaO2% (BldA) [Mass fraction] 96 % [facility] Work Phone: [facility] 03-05-2024 23:11-0400 Systolic blood pressure 136 mm[Hg] [facility] Work Phone: [facility] 03-05-2024 19:59-0400 Body temperature 98.1 [degF] [facility] Work Phone: [facility] 03-05-2024 19:58-0400 Body height 167.64 cm [facility] Work Phone: [facility] 03-05-2024 19:58-0400 Body weight 136.55 kg [facility] Work Phone: [facility] 02-26-2024 19:50-0400 Body height 167.64 cm [facility] Work Phone: [facility] 02-26-2024 19:50-0400 Body temperature 97.8 [degF] [facility] Work Phone: [facility] 02-26-2024 19:50-0400 Body weight 136.98 kg [facility] Work Phone: [facility] 02-26-2024 19:50-0400 Diastolic blood pressure 91 mm[Hg] Services [employer] Work Phone: [facility] 02-26-2024 19:50-0400 Heart rate 103 /min Services [facility] [employer] Work Phone: [facility] 02-26-2024 19:50-0400 Respiratory rate 16 /min Services [facility] Work Phone: [facility] 02-26-2024 19:50-0400 SaO2% (BldA) [Mass fraction] 96 % Services [facility] [employer] Work Phone: [facility] 02-26-2024 19:50-0400 Systolic blood pressure 144 mm[Hg] Services [facility] Work Phone: [facility] 02-23-2024 14:01-0400 Body mass index (BMI) [Ratio] 48.76 kg/m2 Mena Ann PA Work Phone: [facility] 02-23-2024 14:01-0400 Body weight 137.04 kg Mena Marissa PA Work Phone: [facility] 02-23-2024 14:01-0400 Diastolic blood pressure 82 mm[Hg] Mena Ann PA Work Phone: [facility] 02-23-2024 14:01-0400 Systolic blood pressure 128 mm[Hg] Mena Marissa PA Work Phone: [facility] 01-20-2024 13:58-0400 Body mass index (BMI) [Ratio] 48.1 kg/m2 Tacho Shon DO Work Phone: [facility] 01-20-2024 13:58-0400 Body weight 135.17 kg Tacho Shon DO Work Phone: [facility] 01-20-2024 13:58-0400 Diastolic blood pressure 74 mm[Hg] Tacho Shon DO Work Phone: [facility] 01-20-2024 13:58-0400 Systolic blood pressure 122 mm[Hg] Tacho Valienteo DO Work Phone: [facility] 10-06-2023 17:42-0400 Body height 167.64 cm Services [facility] [employer] Work Phone: [facility] 10-06-2023 17:42-0400 Body temperature 98.3 [degF] [facility] Work Phone: [facility] 10-06-2023 17:42-0400 Body weight [address] [facility] Work Phone[facility] [facility] 10-06-2023 17:42-0400 Diastolic blood pressure 94 mm[Hg] Services [facility] Work Phone: [facility] 10-06-2023 17:42-0400 Heart rate 98 /min Services [facility] Work Phone: [facility] 10-06-2023 17:42-0400 Respiratory rate 18 /min Services [facility] Work Phone: [facility] 10-06-2023 17:42-0400 SaO2% (BldA) [Mass fraction] 100 % Services [facility] Work Phone: [facility] 10-06-2023 17:42-0400 Systolic blood pressure 142 mm[Hg] Services [facility] Work Phone: [facility] 09-17-2023 14:22-0400 Body height 167.6 cm Anna Ortiz [facility] 09-17-2023 14:22-0400 Body mass index (BMI) [Ratio] 47.61 kg/m2 Anna Ortiz RD [facility] 09-17-2023 14:22-0400 Body weight 133.[address] [facility] 08-20-2023 13:050400 Body height 167.6 cm Tonya Senior APRN.[facility] Work Phone: [facility] 08-20-2023 13:05-0400 Body weight 133.81 kg Tonya Senior [facility] Work Phone: [facility] 08-07-2023 15:23-0400 Body height 168.[address] [facility] Work Phone: [facility] 08-07-2023 15:23-0400 Body mass index (BMI) [Ratio] 46.9 kg/m2 Services [facility] Work Phone: [facility] 08-07-2023 15:23-0400 Body weight 133.[address] [facility] Work Phone: [facility] 08-07-2023 15:23-0400 Diastolic blood pressure 83 mm[Hg] Services [facility] Work Phone: [facility] 08-07-2023 15:23-0400 Heart rate 101 /min Services [facility] Work Phone: [facility] 08-07-2023 15:23-0400 Respiratory rate 18 /min Services [facility] Work Phone: [facility] 08-07-2023 15:23-0400 SaO2% (BldA) [Mass fraction] 98 % Services [facility] Work Phone: [facility] 08-07-2023 15:23-0400 Systolic blood pressure 120 mm[Hg] Services [facility] Work Phone: [facility] 06-13-2023 11:00-0500 Body height 168.28 cm [employer] Other [facility] 06-13-2023 11:00-0500 Body mass index (BMI) [Ratio] 48.53 kg/m2 Nicholas [employer] Other [employer] Other 06-13-2023 11:00-0500 Body weight 137.44 kg [employer] Other [employer] Other 06-13-2023 11:00-0500 Body weight 137.43 kg [facility] [employer] Work Phone: [facility] 06-13-2023 11:00-0500 Diastolic blood pressure 82 mm[Hg] Nicholas Michaels Other [facility] 06-13-2023 11:00-0500 Respiratory rate 18 /min Nicholasclayton Michaels Other [employer] Other 06-13-2023 11:00-0500 SaO2% (BldA) [Mass fraction] 97 % Nicholas Michaels Other [employer] Other 06-13-2023 11:00-0500 Systolic blood pressure 120 mm[Hg] Nicholas Michaels Other [facility] 01-08-2023 10:45-0400 Body height 168.28 cm Nicholas Michaels Other [employer] Other 01-08-2023 10:45-0400 Body mass index (BMI) [Ratio] 52.89 kg/m2 Nicholas Michaels Other [employer] Other 01-08-2023 10:45-0400 Body weight 149.78 kg Nicholas Michaels Other [employer] Other 01-08-2023 10:45-0400 Diastolic blood pressure 81 mm[Hg] Nicholas Michaels Other [employer] Other 01-08-2023 10:45-0400 Respiratory rate 18 /min Nicholas Michaels Other [employer] Other 01-08-2023 10:45-0400 SaO2% (BldA) [Mass fraction] 97 % Nicholas Michaels Other [employer] Other 01-08-2023 10:45-0400 Systolic blood pressure 122 mm[Hg] Nicholas Michaels Other [facility] [employer] Other 06-18-2022 16:57-0500 Body height 167.64 cm [facility] Work Phone: [facility] 06-18-2022 16:57-0500 Body weight 157 kg [facility] Work Phone: [facility] 06-18-2022 16:56-0500 Body temperature 98.3 [degF] [facility] Work Phone: [facility] 06-18-2022 16:56-0500 Diastolic blood pressure 67 mm[Hg] [facility] Work Phone: [facility] 06-18-2022 16:56-0500 Heart rate 95 /min [facility] Work Phone: [facility] 06-18-2022 16:56-0500 Respiratory rate 20 /min [facility] Work Phone: [facility] 06-18-2022 16:56-0500 SaO2% (BldA) [Mass fraction] 97 % [facility] Work Phone: [facility] 06-18-2022 16:56-0500 Systolic blood pressure 158 mm[Hg] [facility] Work Phone: [facility] 12-02-2021 20:26-0400 Body height 167.64 cm [facility] Work Phone: [facility] 12-02-2021 20:26-0400 Body temperature 98.2 [degF] [facility] Work Phone: [facility] 12-02-2021 20:26-0400 Body weight 144.24 kg [facility] Work Phone: [facility] 12-02-2021 20:26-0400 Diastolic blood pressure 89 mm[Hg] [facility] Work Phone: [facility] 12-02-2021 20:26-0400 Heart rate 104 /min Services [facility] Work Phone: [facility] 12-02-2021 20:26-0400 Respiratory rate 20 /min Services [facility] Work Phone: [facility] 12-02-2021 20:26-0400 SaO2% (BldA) [Mass fraction] 96 % Services [facility] [employer] Work Phone: [facility] 12-02-2021 20:26-0400 Systolic blood pressure 156 mm[Hg] Services [facility] Work Phone: [facility] 06-19-2020 11:10-0500 BMI (Body Mass Index) 46.65 kg/m2 Bayron Bibiana AW-WZTXP-[id number] 310 [facility] Work Phone: 06-19-2020 11:10-0500 Body weight 131.09 kg Bayron Bibiana FH-ZZFJR-Mvkcaj 310 [facility] Work Phone: 06-19-2020 11:10-0500 BSA (Body Surface Area) 2.34 m2 Bayron Bibiana DU-QSATF-Xsvfdh 310 [facility] Work Phone: 06-19-2020 11:10-0500 Height 167.64 cm Bayron Bibiana DK-KBXRL-Snuwot 310 [facility] Work Phone: 06-19-2020 11:10-0500 1 1 Bayron Bibiana OA-NTTBN-Uttmmi 310 IV[facility] Work Phone: Comment on above: 06-19-2020 11:10-0500 0 1 Bayron Bibiana CA-PHAZB-Sqkjev 310 IV[facility] Work Phone: Comment on above: Para Pain Scale Encounters Encounter Date Encounter Type Care Provider Facility Start: 05-03-2024 End: 05-03-2024 Office outpatient visit 15 minutes Mena CARRILLO Work Phone: [facility] Comment on above: 35 weeks gestation o f ; Third trimester Start: 05-03-2024 End: 05-03-2024 ambulatory MENA ANN Not Available Start: 05-03-2024 End: 05-03-2024 Bamboo flowsheet Mena CARRILLO Work Phone: [facility] Start: 05-03-2024 End: 05-03-2024 Bamboo flowsheet Mena CARRILLO Work Phone: [facility] Start: 05-03-2024 End: 05-03-2024 Clinisync Result Encounter Tacho Shon DO Work Phone: [facility] External Department Unsolicited Start: 04-27-2024 End: 04-27-2024 ambulatory TACHO R [facility] Start: 04-22-2024 End: 04-22-2024 Bamboo flowsheet [...] Start: 03-30-2024 End: 03-30-2024 ambulatory TACHO R [facility] Start: 03-22-2024 End: 03-22-2024 Bamboo flowsheet Tacho Shon DO Work Phone: [facility] Start: 03-22-2024 End: 03-22-2024 Bamboo flowsheet Tacho Shon DO Work Phone: [facility] Start: 03-22-2024 End: 03-22-2024 Office outpatient visit 15 minutes Tacho Shon DO Work Phone: [facility] Comment on above: Third trimester preg rosette; 29 weeks gestation of Start: 03-22-2024 End: 03-22-2024 ambulatory TACHOLisa VALIENTEO Not Available Start: 03-19-2024 End: 03-19-2024 Clinisync Result Encounter Mena CARRILLO Work Phone: [facility] External Department Unsolicited Start: 03-19-2024 End: 03-19-2024 Clinisync Result Encounter Mena CARRILLO Work Phone: [facility] External Department Unsolicited Start: 03-05-2024 End: 03-05-2024 Emergency department patient visit Services [facility] Work Phone: [facility] Work Phone: Start: 03-01-2024 End: 03-01-2024 Orders Only Veda Hayes RN Maternal- Medic ine at [facility] Comment on above: Encounter for follow -up ultrasound of anatomy (Primary Dx); History of pre-eclampsia in prior , currently ; History of delivery, currently ; Obesity affecting in second trimester, unspecified obesity type Start: 02-26-2024 End: 02-26-2024 Emergency department patient visit Services [facility] Work Phone: [facility] Work Phone: Start: 02-23-2024 End: [...] Start: 02-17-2024 End: 02-17-2024 ambulatory TACHO R SHON [facility] Start: 01-26-2024 End: 01-26-2024 Clinisync Result Encounter Tacho Shon DO Work Phone: [facility] External Department Unsolicited Start: 01-26-2024 End: 01-26-2024 Clinisync Result Encounter Tacho Shon DO Work Phone: [facility] External [facility] Unsolicited Start: 01-20-2024 End: 01-20-2024 Office outpatient visit 15 minutes Tacho Shon DO Work Phone: [facility] Comment on above: Second trimester pre gnancy Start: 01-20-2024 End: 01-20-2024 ambulatory TACHO SHON Not Available Start: 01-19-2024 End: 01-19-2024 ambulatory TACHO R SHON [facility] Start: 12-23-2023 End: 12-23-2023 ambulatory MENA ANN Not Available Start: 11-25-2023 End: 11-25-2023 ambulatory TACHO SHON Not Available Start: 10-30-2023 End: 10-30-2023 ambulatory ATCHO SHON Not Available Start: 10-09-2023 End: 10-09-2023 ambulatory LATONIA GREENE Facility:[facility] Start: 10-06-2023 End: 10-06-2023 Emergency department patient visit Services [facility] Work Phone: [facility] Work Phone: Start: 09-17-2023 End: 09-17-2023 ambulatory ANNA ANGEL Facility:[facility] Start: 09-17-2023 End: 09-17-2023 Nutrition therapy Anna Angel BAÑUELOS Nutrition Therapy Comment on above: Obesity, Class III, BMI 40-49.9 (morbid obesity) (HCC) (Primary Dx); Dietary counseling Start: 09-17-2023 End: 09-17-2023 Telemedicine consultation with patient Anna Ortiz S[facility] Nutrition Therapy Start: 09-15-2023 Admission to [facility] Tonya Senior APRN.[employer] Work Phone: General Surgery Comment on above: Results Start: 09-15-2023 E-mail encounter fro m caregiver Tonya Senior APRN.[employer] Work Phone: General Surgery Start: 09-11-2023 Telephone encounter Tonya Senior APRN.[employer] Work Phone: General Surgery Comment on above: Results Start: 09-08-2023 End: 09-08-2023 ambulatory TONYA SENIOR Facility:[facility] Start: 09-05-2023 End: 09-05-2023 ambulatory TONYA SENIOR Facility:[facility] Start: 09-01-2023 End: 09-02-2023 ambulatory LATONIA GREENE Facility:[facility] Start: 09-01-2023 End: 09-01-2023 Admission to same day surgery center Latonia Greene PhD Work Phone: General Surgery BMI PSYL Comment on above: NO SHOW (Primary Dx) Start: 09-01-2023 End: 09-01-2023 Telemedicine consultation with patient Latonia Greene PhD Work Phone: General Surgery BMI PSYL Start: 08-20-2023 Admission to [facility] surgery center 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 Senior 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: General Surgery Comment on above: Welcome to Bariatric Surgery Start: 08-20-2023 E-mail encounter fro m caregiver Tonya Ron Senior APRN.[employer] Work Phone: [place] [phone] Start: 08-20-2023 End: 08-20-2023 ambulatory Tonya Ron Senior APRN.[employer] Work Phone: General Surgery Comment on above: Body mass index (BMI ) of 50-59.9 in adult (HCC) (Primary Dx); Angel's thyroiditis; High blood cholesterol Start: 08-20-2023 End: 08-20-2023 Telemedicine consultation with patient Tonya K Parrish IBARRA.SCOOPER Work Phone: [facility] Start: 08-07-2023 End: 08-07-2023 ambulatory [facility] Work Phone: [facility] Work Phone: Start: 08-07-2023 End: 08-07-2023 Patient encounter procedure [facility] Work Phone: [facility] Work Phone: Start: 06-13-2023 Follow-up encounter Nicholas [facility]on [facility] Start: 06-13-2023 Registered Recurring Services [facility] Work Phone: [facility] Work Phone: Start: 06-13-2023 End: 06-13-2023 ambulatory Nicholas Michaels [employer] Other Start: 06-13-2023 End: 06-13-2023 Patient encounter procedure Services [facility] Work Phone: [facility]- Start: 01-08-2023 End: 01-08-2023 ambulatory Nicholas Michaels Other [employer] Other Start: 01-08-2023 Nutrition therapy Nicholas pérez [facility] Start: 06-18-2022 End: 06-18-2022 Emergency department patient visit Services Family [facility] Work Phone: [facility] Work Phone: Start: 06-03-2022 End: 06-03-[address] TACHO MENENDEZ Facility: Start: 12-02-2021 End: 12-02-2021 Emergency department patient visit Services Family [facility] Work Phone: [facility] Start: 07-08-2020 Patient encounter procedure Bayron Mccarty CP-TKPWJ-[id number] 310 [facility] Work Phone: Start: 07-05-2020 Patient encounter procedure Bayron Mccarty II-QLJVB-Vjxind 310 IVF Work Phone: Start: 06-19-2020 Patient encounter procedure Bayron Mccarty DH-ASKYT-Jrczic 310 IV[facility] Work Phone: Start: 04-14-2020 Patient encounter procedure Bayron Mccarty OE-JMCWS-Pdtpvw 310 IVF Work Phone: Start: 03-28-2020 Patient encounter procedure Bayron Mccarty WJ-ITUFJ-Imjjwn 310 IVF Work Phone: Start: 2020 Patient encounter procedure Bayron Mccarty ZH-IVBWA-Jrzkmo 310 IVF Work Phone: Start: 01-24-2020 Patient encounter procedure Bayron Mccarty YP-GUBXW-Wpsbay 310 IVF Work Phone: Start: 08-01-2017 End: 08-02-2017 Ambulatory Agustin Neidasriram Facility:[id number] Start: 07-14-2017 End: 07-15-2017 Ambulatory Agustin Carrasquillosriram Facility:[id number] Procedures Date Procedure Procedure Detail Performing Clinician Start: 05-03-2024 ALL THYROID STIM HORMONE Tacho Menendez DO Work Phone: Start: 05-03-2024 Urnls dip stick/tabl et rgnt non-auto w/o micrscp Mena CARRILLO Work Phone: Start: 04-22-2024 Urnls dip stick/tabl [...] Start: 03-05-2024 Plain chest X-ray Servi malina [facility] Work Phone: Start: 03-05-2024 Respiratory Panel (PCR) Services [facility] Work Phone: Start: 03-05-2024 Streptococcus pyogen es antigen assay Services [facility] Work Phone: Start: 02-26-2024 Streptococcus pyogen es antigen assay Services [facility] Work Phone: Start: 02-23-2024 Urnls dip stick/tabl et rgnt non-auto w/o micrscp Mena CARRILLO Work Phone: Start: 01-26-2024 ALL THYROID STIM HORMONE Tacho Shon DO Work Phone: Start: 01-20-2024 Urnls dip stick/tabl et rgnt non-auto w/o micrscp Tacho Shon DO Work Phone: Start: 12-23-2023 Microscopic observat ion [Identifier] in Cervix by Cyto stain Tacho Shon DO Work Phone: Start: 07-06-2020 Antibody screen Comment on above: Performed By: #### T +S #### [facility] [address] [place] [address] Start: 07-05-2020 IO Ultrasound, limit ed pelvic, follicle monitoring Bayron Mccarty Start: 06-26-2020 IO Ultrasound, limit ed pelvic, follicle monitoring Bayron Mccarty Start: 05-10-2020 Assay of progesterone J oseptiffanie Bibiana Adenoid excision Bayron wallace Cholecystectomy Bayron Chen ey SARS Antigen (LFIA) Services [facility] Work Phone: Plan of Treatment Date Care Activity Detail Author Start: 12-22-2028 Screening for malign ant neoplasm of cervix [facility] Start: 12-22-2026 Screening for malign ant neoplasm of cervix [facility] [employer] Start: 03-01-2025 End: 03-01-2025 US MFM with or without consult US MFM with or without consult Imaging Routine Encounter for follow-up ultrasound of anatomy History of pre-eclampsia in prior , currently History of delivery, currently Obesity affecting in second trimester, unspecified obesity type Expected: 03/01/2025 (Approximate), Expires: 03/01/2025 [employer] Phone: Comment on above: Expected: 03/01/2025 (Approximate), Expires: 03/01/2025 Start: 01-18-2025 Adult BMI Screening Adult BMI Screen ing [facility] Start: 01-18-2025 Tobacco Screening Tobacco Screening [facility] Start: 05-17-2024 End: 05-17-2024 Patient encounter procedure 05/17/2024 3:00 PM EST Routine [facility] [address] [place] [phone] Tacho Menendez DO [address] [place] [address] [facility] Start: 05-03-2024 End: 05-03-2024 Patient encounter procedure 05/03/2024 2:50 PM EST Routine [facility] [address] [place] [address] Mena Ann PA [address] [place], [place] [id number] [facility] Start: 04-22-2024 End: 04-22-2025 [...] PM EST Routine [facility] [address] [facility] [place] [phone] Mena Ann PA [address] [place], [place] [phone] [facility] Start: 03-30-2024 End: 03-30-2024 Patient encounter procedure 03/30/2024 2:45 PM EST Appointment [facility] - Ultrasound [address] [facility] [place] [phone] [facility] - [facility] Start: 03-22-2024 End: 03-22-2024 Patient encounter procedure 03/22/2024 1:50 PM EST Routine [facility] [address] [place] [phone] Tacho Menendez DO [address] [place] [address] [facility] Start: 03-22-2024 End: 03-22-2024 Professional / ancillary services management 03/22/2024 1:00 PM EST Ancillary Procedure [facility] [address] [place] [phone] [facility] Start: 03-16-2024 End: 03-16-2024 Patient encounter procedure 03/16/2024 1:30 PM EST Routine [facility] [address] [facility] [place] [phone] Tacho Menendez DO [address] [facility] [address] [place], [place] [phone] [facility] Start: 02-23-2024 End: 02-22-2025 CBC panel - Blood by Automated count CBC Lab Routine Diabetes mellitus screening Expected: 02/23/2024 (Approximate), Expires: 02/22/2025 [facility] Work Phone: Comment on above: Expected: 02/23/2024 (Approximate), Expires: 02/22/2025 Start: 02-23-2024 End: 02-22-2025 Measurement of glucose 1 hour after glucose challenge for glucose tolerance test Glucose tolerance, 1 hour Lab Routine Diabetes mellitus screening Expected: 02/23/2024 (Approximate), Expires: 02/22/2025 [facility] Comment on above: Expected: 02/23/2024 (Approximate), Expires: 02/22/2025 Start: 02-23-2024 End: 02-22-2025 US for US OB SCAN FOR GROWTH Imaging Routine size inconsistent with dates H/O premature delivery Expected: 02/23/2024 (Approximate), Expires: 02/22/2025 [facility] Comment on above: Expected: 02/23/2024 (Approximate), Expires: 02/22/2025 Start: 02-23-2024 End: 02-23-2024 Patient encounter procedure 02/23/2024 1:40 PM EDT Routine [facility] [address] [facility] [address] [place] [phone] Mena Ann PA [address] [facility] [place] [address] Arrived [facility] Comment on above: Arrived Start: 02-18-2024 End: 02-18-2024 Patient encounter procedure 02/18/2024 2:30 PM EDT Routine [facility] [address] [facility] [place] [phone] Mena Ann PA [address] [facility] [address] [place], [place] [phone] [facility] Start: 01-11-2024 COVID-19 Vaccine ( season) COVID-19 Vaccine () [facility] Start: 01-11-[address] [facility] Start: 09-17-2023 End: 09-17-2023 Nutrition therapy 09/17/2023 2:30 PM EDT [facility] Nutrition Therapy [address] [place] [id number] Anna Ortiz, RD [address] [place] [address] Red/Davis/0 Diet/Molena Nutrition Therapy Comment on above: Red/Davis/0 Diet/ Molena Start: 09-12-2023 End: 09-12-2023 Admission to same day surgery center 09/12/2023 3:30 PM EDT [facility] General Surgery [address] [place] [address] Joo Bradley MD [address] [place] [address] Red/Kirk/0 Diet/Molena General Surgery Comment on above: Red/Kirk/0 Diet/Anth em Start: 09-05-2023 End: 09-05-2023 ambulatory 09/05/2023 11:45 AM EDT Results Only [facility] [address] [place] [address] [place] [address] [facility] Start: 08-20-2023 End: 11-19-2023 25-hydroxyvitamin D3 [Mass/volume] in Serum or Plasma VITAMIN D 25 HYDROXY Lab Routine Body mass index (BMI) of 50-59.9 in adult ([facility]) Expected: 08/20/2023, Expires: 11/19/2023 [facility] Work Phone: Comment on above: Expected: 08/20/2023 , Expires: 11/19/2023 Start: 08-20-2023 End: 11-19-2023 CBC W Auto Differential panel - Blood COMPLETE BLOOD COUNT AND DIFFERENTIAL Lab Routine Body mass index (BMI) of 50-59.9 in adult ([facility]) Expected: 08/20/2023, Expires: 11/19/2023 [facility] Work Phone: Comment on above: Expected: 08/20/2023 , Expires: 11/19/2023 Start: 08-20-2023 End: 11-19-2023 Cobalamin (Vitamin B12) [Mass/volume] in Serum or Plasma VITAMIN B12 Lab Routine Body mass index (BMI) of 50-59.9 in adult ([facility]) Expected: 08/20/2023, Expires: 11/19/2023 [facility] Work Phone: Comment on above: Expected: 08/20/2023 , Expires: 11/19/2023 Start: 08-20-2023 End: 11-19-2023 Comprehensive metabolic 2000 panel - Serum or Plasma COMPREHENSIVE METABOLIC PANEL Lab Routine High blood cholesterol Body mass index (BMI) of 50-59.9 in adult ([facility]) Expected: 08/20/2023, Expires: 11/19/2023 [facility] Work Phone: Comment on above: Expected: 08/20/2023 , Expires: 11/19/2023 Start: 08-20-2023 End: 11-19-2023 Ferritin [Mass/volume] in Serum or Plasma FERRITIN Lab Routine Body mass index (BMI) of 50-59.9 in adult ([facility]) Expected: 08/20/2023, Expires: 11/19/2023 [facility] Work Phone: Comment on above: Expected: 08/20/2023 , Expires: 11/19/2023 Start: 08-20-2023 End: 11-19-2023 Folate [Mass/volume] in Serum or Plasma FOLATE, SERUM Lab Routine Body mass index (BMI) of 50-59.9 in adult ([facility]) Expected: 08/20/2023, Expires: 11/19/2023 [facility] Work Phone: Comment on above: Expected: 08/20/2023 , Expires: 11/19/2023 Start: 08-20-2023 End: 11-19-2023 Helicobacter pylori IgG Ab [Presence] in Serum or Plasma by Immunoassay H PYLORI IGG AB Lab Routine Body mass index (BMI) of 50-59.9 in adult ([facility]) Expected: 08/20/2023, Expires: 11/19/2023 [facility] Work Phone: Comment on above: Expected: 08/20/2023 , Expires: 11/19/2023 Start: 08-20-2023 End: 11-19-2023 Hemoglobin A1c in Blood HEMOGLOBIN A1C Lab Routine Body mass index (BMI) of 50-59.9 in adult ([facility]) Expected: 08/20/2023, Expires: 11/19/2023 [facility] Work Phone: Comment on above: Expected: 08/20/2023 , Expires: 11/19/2023 Start: 08-20-2023 End: 11-19-2023 Iron and Iron binding capacity panel - Serum or Plasma IRON AND TIBC Lab Routine Body mass index (BMI) of 50-59.9 in adult ([facility]) Expected: 08/20/2023, Expires: 11/19/2023 [facility] Work Phone: Comment on above: Expected: 08/20/2023 , Expires: 11/19/2023 Start: 08-20-2023 End: 11-19-2023 Lipid 1996 panel - Serum or Plasma LIPID PANEL BASIC Lab Routine High blood cholesterol Body mass index (BMI) of 50-59.9 in adult ([facility]) Expected: 08/20/2023, Expires: 11/19/2023 [facility] Work Phone: Comment on above: Expected: 08/20/2023 , Expires: 11/19/2023 Start: 08-20-2023 End: 11-19-2023 Natriuretic peptide.B prohormone N-Terminal [Mass/volume] in Serum or Plasma NT PRO BNP Lab Routine Body mass index (BMI) of 50-59.9 in adult ([facility]) Expected: 08/20/2023, Expires: 11/19/2023 [facility] Work Phone: Comment on above: Expected: 08/20/2023 , Expires: 11/19/2023 Start: 08-20-2023 End: 11-19-2023 NICOTINE & METAB, UR NICOTINE & METAB, UR Lab Routine Body mass index (BMI) of 50-59.9 in adult ([facility]) Expected: 08/20/2023, Expires: 11/19/2023 [facility] Work Phone: Comment on above: Expected: 08/20/2023 , Expires: 11/19/2023 Start: 08-20-2023 End: 11-19-2023 Thyrotropin [Units/volume] in Serum or Plasma THYROID STIMULATING HORMONE Lab Routine Angel's thyroiditis Body mass index (BMI) of 50-59.9 in adult ([facility]) Expected: 08/20/2023, Expires: 11/19/2023 [facility] Work Phone: Comment on above: Expected: 08/20/2023 , Expires: 11/19/2023 Start: 08-20-2023 End: 11-19-2023 TOXICOLOGY SCREEN, ROUTINE URINE TOXICOLOGY SCREEN, ROUTINE URINE Lab Routine Body mass index (BMI) of 50-59.9 in adult ([facility]) Expected: 08/20/2023, Expires: 11/19/2023 [facility] Work Phone: Comment on above: Expected: 08/20/2023 , Expires: 11/19/2023 Start: 08-20-2023 End: 11-19-2023 VITAMIN B1 (THIAMINE), WHOLE BLOOD VITAMIN B1 (THIAMINE), WHOLE BLOOD Lab Routine Body mass index (BMI) of 50-59.9 in adult ([facility]) Expected: 08/20/2023, Expires: 11/19/2023 [facility] Work Phone: Comment on above: Expected: 08/20/2023 , Expires: 11/19/2023 Start: 05-12-2023 Behavioral Health Screening Behavioral Health Screening [facility] Start: 01-10-2023 Covid-19 Vaccine ( season) Covid-19 Vaccine () [facility] Start: 12-02-2021 Plain chest X-ray XR chest 1V portab le [facility] Start: 12-02-2021 XR Chest Single view [facility] Work Phone: Start: 2021 Screening for malign ant neoplasm of cervix HPV Testing [facility] Start: 2012 Screening for malign ant neoplasm of cervix Pap Testing [facility] Start: 2010 Hepatitis B Vaccine (1 of 3 - 19+ 3-dose series) Hepatitis B Vaccine (1 of 3 - 19+ 3-dose series) [facility] Start: 2009 Adult BMI Follow Up Plan Adult BMI Follow Up Plan [facility] Start: 2009 HIV screening HIV Screening [facility] Start: 2003 Depression Screening Depression [facility] Start: 2002 DTaP,Tdap and Td Vaccines (6 - Tdap) DTaP,Tdap and Td Vaccines (6 - Tdap) [facility] Start: 2002 Urine microalbumin profile DTaP,Tdap,Td Vaccine (6 - Tdap) [facility] End: 08-19-2024 ECG COMPLETE ECG COMPLETE ECG Routine Body mass index (BMI) of 50-59.9 in adult (HCC) 1 Occurrences starting 08/20/2023 until 08/19/2024 [facility] Work Phone: Comment on above: 1 Occurrences starti ng 08/20/2023 until 08/19/2024 Patient Education [facility] Work Phone: Patient referral [facility] Work Phone: Thyrotropin [Units/volume] in Serum or Plasma TSH Lab Routine Thyroid disease (CMS/HCC) Ordered: 04/22/2024 [facility] Comment on above: Ordered: 04/22/2024 End: 09-18-2024 US Abdomen RUQ US ABD RIGHT UPPER QUADRANT Radiology Routine Body mass index (BMI) of 50-59.9 in adult (HCC) 1 Occurrences starting 08/20/2023 until 09/18/2024 [facility] Work Phone: Comment on above: 1 Occurrences starti ng 08/20/2023 until 09/18/2024 End: 09-18-2024 XR Chest PA and Lateral XR CHEST 2V FRONTAL/LAT Radiology Routine Body mass index (BMI) of 50-59.9 in adult (HCC) 1 Occurrences starting 08/20/2023 until 09/18/2024 [facility] Work Phone: Comment on above: 1 Occurrences starti ng 08/20/2023 until 09/18/2024 DE-TROID-Kyigid 310 IVF Work Phone: [facility] NEGATED: Highlighted row has been ruled out! Planned Goals not documented OF-GIWUA-Uejnry 310 IVF Work Phone: Immunizations Immunization Date Immunization Notes Care Provider Sonia miramontes 03-11-2023 influenza virus vacc ine, unspecified formulation Tacho Menendez DO Work Phone: [facility] Healthcare Payers Date Payer Category Payer Self-pay [id number] 2022 Medicaid [id number] 2022 Medicaid [id number] 1991 Unknown [id number] 2.16.840.1.634927.3.579.2.59 3 1991 Unknown [id number] 2.16.840.1.508405.3.579.2.12 86 1991 Unknown [id number] 2.16.840.1.413351.3.579.2.12 86 1991 Unknown [id number] 2.16.840.1.482517.3.579.2.12 86 1991 Unknown [id number] 2.16.840.1.801989.3.579.2.12 86 1991 Unknown [id number] 2.16.840.1.308920.3.579.2.12 86 1991 Unknown [id number] 2.16.840.1.773018.3.579.2.12 59 1991 Unknown [id number] 2.16.840.1.314457.3.579.2.12 59 1991 Unknown [id number] 2.16.840.1.603387.3.579.2.12 59 1991 Unknown [id number] 2.16.840.1.945467.3.579.2.12 59 1991 Unknown [id number] 2.16.840.1.329428.3.579.2.12 59 1991 Unknown [id number] 2.16.840.1.961714.3.579.2.12 59 1991 Unknown [id number] 2.16.840.1.211325.3.579.2.12 59 1991 Unknown [id number] 2.16.840.1.657097.3.579.2.12 59 1991 Unknown [id number] 2.16.840.1.087516.3.579.2.12 59 1959 Medicaid [id number] Private Health [facility] [id number] Unknown [id number] Unknown Regular Insurance [id number] Unknown [employer] [id number] Unknown Regular Auto/Medical [id number] Unknown [id number] 2.16.840.1.128079.3.579.2.53 1 Unknown [id number] 2.16.840.1.298207.3.579.2.53 1 Unknown [id number] 2.16.840.1.734768.3.579.2.53 1 Unknown [id number] 2.16.840.1.167245.3.579.2.53 1 Social History Date Type Detail Facility Start: 12-02-2021 End: 05-17-2023 Tobacco smoking status NHIS Never smoked tobacco (finding) [facility] Start: 1990 Sex Assigned At Female F [facility] Start: 05-17-2023 End: 08-20-2023 Sex Assigned At [facility] Other Start: 05-17-2023 End: 08-20-2023 Tobacco use and exposure Smokeless tobacco non-user [facility] Work Phone: Start: 08-20-2023 End: 05-03-2024 Alcohol intake Current drinker of alcohol (finding) [facility] Start: 05-17-2023 End: 08-20-2023 History of Social function [facility] National Score (1-100), lower number is lower risk 86 [facility] Start: 08-20-2023 Alcohol [facility] occ [facility] Start: 1990 Sex Assigned At Not on file [facility] Start: 08-26-2023 Gender identity Identifies as female gender (finding) [facility] Start: 08-26-2023 Sexual orientation Heterosexual (brina beyer) [facility] Start: 09-14-2023 [facility] How often to you hav [...] 01-19-2024 Alcoholic beverage intake Ex-drinker (finding) [facility] Start: 12-13-2014 Sex Female (finding) [facility] NEGATED: Highlighted row - - RX-TMHYZ-Jrifix 310 IVF Work Phone: Functional Status Date Assessment Result Facility NEGATED: Highlighted row Functional performance Functional status health issues are not documented Disease RE-MOORL-Weakvy 310 IVF Work Phone: Mental Status Date Assessment Result Facility NEGATED: Highlighted row Cognitive function [Interpretation] Cognitive status health issues are not documented Disease AE-FRDUD-Idihri 310 IVF Work Phone: Clinical Notes 01-08-2023 [...] 06/2019 OTHER SURGICAL HISTORY 2020 IUI 07/10/20 [facility] SALPINGECTOMY Left 2011 ectopic REVIEW [...] of: GERARDO Vazquez documented in this encounter [facility] 04-22-2024 History of Presen t illness Narrative [...] smear following initial abnormal smear 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 Exam conducted with a erp engineer present. Vitals: Estimated body mass index is [...] Tacho Menendez DO documented in this encounter [facility] 04-06-2024 History of Presen t illness Narrative [...] 06/2019 OTHER SURGICAL HISTORY 2020 IUI 07/10/20 [facility] SALPINGECTOMY Left 2012 ectopic REVIEW OF [...] of: GERARDO Vazquez documented in this encounter [facility] 03-22-2024 History of Presen t [...] Morbid obesity with BMI of 50.0-59.9, adult (CMS/[facility]) Vaginal delivery Social History Tobacco Use Smoking [...] @ age 6 or 7 CHOLECYSTECTOMY 07/20/2019 ([place]) ERCP 06/2019 OTHER SURGICAL HISTORY 2020 IUI 07/10/20 [facility] SALPINGECTOMY Left 2011 ectopic REVIEW [...] nursing note reviewed. Exam conducted with a erp engineer present. Vitals: Estimated body mass index is [...] Tacho Menendez DO documented in this encounter [facility] 02-23-2024 History of Presen t [...] Morbid obesity with BMI of 50.0-59.9, adult (CMS/[facility]) Vaginal delivery HISTORY PAST MEDICAL HISTORY SOCIAL HISTORY Past Medical History: Diagnosis Date Abdominal pain Breast pain, right Cholelithiasis Encounter for cervical smear to confirm findings of recent normal smear following initial abnormal smear Angel's disease (CMS/HCC) Hypothyroidism (CMS/HCC) Morbid obesity ([facility]) Morbid obesity with BMI of 50.0-59.9, adult ([facility]) Vaginal delivery Social History Tobacco Use Smoking [...] 06/2019 OTHER SURGICAL HISTORY 2020 IUI 07/10/20 [facility] SALPINGECTOMY Left 2011 ectopic REVIEW [...] nursing note reviewed. Exam conducted with a erp engineer present. Vitals: Estimated body mass index is [...] of: GERARDO Vazquez documented in this encounter [facility] 01-20-2024 History of Presen t illness Narrative [...] 06/2019 OTHER SURGICAL HISTORY 2020 IUI 07/10/20 [facility] SALPINGECTOMY Left 2011 ectopic REVIEW [...] nursing note reviewed. Exam conducted with a erp engineer present. Vitals: Estimated body mass index is [...] notified. Pt has follow up appt at [facility] in four weeks. Pt to return to office in four weeks for scheduled OB appt. Documented by Priscilla Fernandez LPN on behalf of: Tacho Menendez DO documented in this encounter [facility] 10-09-2023 Note HNO ID: [id number] Author: LATONIA GREENE, PhD Service: ? Author Type: Psychologist Type: Progress Notes Filed: 10/17/2023 11:09 Note Text: [facility] BARIATRIC SURGERY BEHAVIORAL HEALTH EVALUATION BMI Surgical Pathway Visit type: Psychology Visit DATE OF SERVICE: October 09, 2023 TIME OF SERVICE: 1:00 PM - 2:00 PM COST CENTER: [facility] CPT CODE: - [id number] Virtual Psych Diagnostic Eval BILLING CODE: ENDO PSYL MAIN Jerel DATE OF FIRST SERVICE THIS CYCLE: October 09, 2023 SESSION #: 1 I have communicated my name and active licensure. The patient's identity and physical location (see below) were verified at the time of this visit. Either the patient or their legal automotive leasing sales representative has been informed of the risks and benefits of -- and alternatives to -- treatment through a remote evaluation and consents to proceed with the evaluation remotely. This evaluation is NOT intended for forensic, disability or child custody purposes. The patient e-signed a copy of the consent form via [employer] and the [facility] insurance benefits, fees for service, [...] in case of emergency and/or disconnection. [address] [place] [address] (Change address [place] [facility], was mother) Alternate Database Analyst Bibi Arrieta (Mother) [phone] (Home Phone) Patient identified the following plan to follow in case of emergency: Go to emergency room (nearest is [facility]) or call 911. IDENTIFYING INFORMATION: Ms. Jaleesa [...] pt has l (more content not included)... [facility] 09-22-2023 Telephone encounter Note Can not schedule patient as there is already a patient scheduled for that day and time. Please advise. Thanks Meme Castrejon [facility] 09-22-2023 Telephone encounter Note ----- Message from Anna Ortiz RD sent at 09/17/2023 3:17 PM EDT ----- Regarding: virtual follow up Please schedule for a virtual up 10/16 at 1. The patient is aware, no call needed. Thank you! Anna [facility] 09-22-2023 Miscellaneous Notes Can not schedule [...] no answer, left vm. Tonya Senior APRN.MERON documented in this encounter [facility] 09-17-[address] - 09/17/2023 3:12 PM EDT 1. Read Nutritional Guidelines Section of Your Guide to Surgery by next session [email or web address] -/[email or web address]/ [email or web address]?la=en 2. Do not [...] full-liquid diet. Examples: Slim Fast Advanced Nutrition Minier Breakfast Essentials Light Start Drink mixed with [...] Bariatric Multivitamin and Calcium Citrate (total of 4543-3669 mg/day) * take calcium citrate separately from Multivitamin with iron at least 2 hours apart and 4 hours apart from additional calcium www.[employer].Auxmoney - Bariatric Choice: 4 Complete Multivitamins (chewables) per day Www.bariatricchoice.Auxmoney - Bariatric Advantage: 2 Multivitamins and 3 Calcium Citrate Chewables per day * take calcium citrate separately from Multivitamin with iron at least 2 hours apart and 4 hours apart from additional calcium Www.bariatricadvantage.Auxmoney Start practicing eating slowly, chewing each bite of food 20-30 x per bite, making meals last 20-30 minutes, separatign food and fluids by 30 minutes . Have all meals and snacks at the table with no distractions. Make placemat for reminders; work towards normal sleep/wake pattern Pre-op goal weight: 281 pounds Protein needs: 85 grams per day documented in this encounter [facility] 09-17-2023 Note HNO ID: [id number] Author: ANNA ORTIZ RD Service: ? Author Type: Registered Dietitian Type: Progress Notes Filed: 09/17/2023 15:19 Note Text: [facility] Nutrition Therapy: Virtual Consult - Initial Assessment I have communicated my name and active licensure. The patient?s identity and physical location were verified at the time of this visit. Either the patient or their legal automotive leasing sales representative has been informed of the [...] Your Guide to Surgery by next session [email or web address] -/[email or web address]/files/[email or web address]/ [email or web address]?la=en 2. Do not [...] Examples: ? Slim Fast Advanced Nutrition ? Minier Breakfast Essentials ?Light Start? Drink mixed with [...] AM, 2 in the PM) www.bariatricfusion.com - [employer]: 1 Bariatric Multivitamin and Calcium Citrate (total of 8733-8086 mg/day) * take calcium citrate separately from Multivitamin with iron at least 2 hours apart and 4 hours apart from additional calcium www.procarenow.Auxmoney - Bariatric Choice: 4 Complete Multivitamins (chewables) [...] and using Phen (more content not included)... [facility] 09-17-2023 History of Presen t illness Narrative The [facility] Nutrition Therapy: Virtual Consult - Initial Assessment I have communicated my name and active licensure. The patient s identity and physical location were verified at the time of this visit. Either the patient or their legal automotive leasing sales representative has been informed of the [...] Your Guide to Surgery by next session [email or web address] -/[email or web address]/files/org/[email or web address]/ [email or web address]?la=en 2. Do not [...] full-liquid diet. Examples: Slim Fast Advanced Nutrition Minier Breakfast Essentials Light Start Drink mixed with [...] AM, 2 in the PM) www.bariatricfusion.com - [employer]: 1 Bariatric Multivitamin and Calcium Citrate (total of 4644-2043 mg/day) * take calcium citrate separately from Multivitamin with iron at least 2 hours apart and 4 hours apart from additional calcium www.[employer] - Bariatric Choice: 4 Complete Multivitamins (chewables) per day Www.bariatricchoBluetest.Auxmoney - Bariatric Advantage: 2 Multivitamins and 3 Calcium Citrate Chewables per day * take calcium citrate separately from Multivitamin with iron at least 2 hours apart and 4 hours apart from additional calcium Www.bariatricadvantage.Auxmoney Start practicing eating slowly, chewing each bite [...] suggested by 180 Initial weight: 295 lbs. [place] [address] body weight is 155 lbs. Excess body weight is 140 lbs. Goal weight pre-op is 281 lbs. Protein needs are estimated at 85gm (1.2 - protein/kg IBW) Patient meets the National Institutes of Health guidelines for weight loss surgery and has [employer] Insurance therefore is required to complete 0 [...] TIME: 2:25 PM documented in this encounter [facility] 09-11-2023 Telephone encounter Note Attempted to call pt, re: hypothyroid and low vitamin d levels, no answer, left vm. Tonya Senior APRN.SCOOPER [facility] 09-01-2023 Note HNO ID: [id number] Author: LATONIA GREENE, PhD Service: ? Author Type: Psychologist Type: Progress Notes Filed: 09/01/2023 13:22 Note Text: [facility] Progress Note 09/01/2023 Billing code: Jerel Patient did not attend, cancel, or reschedule this appointment. Provider left HIPAA compliant voicemail and MyChart message with contact information to reschedule. Latonia Greene, PhD Clinical Psychologist [facility] 09-01-2023 History of Presen t illness Narrative [facility] Progress Note 09/01/2023 Billing code: Jerel Patient did not attend, cancel, or reschedule this appointment. Provider left HIPAA compliant voicemail and MyChart message with contact information to reschedule. Latonia Greene PhD Clinical Psychologist documented in this encounter [facility] 08-20-2023 Note HNO ID: [id number] Author: TONYA SENIOR APRN.SCOOPER Service: ? Author Type: Nurse Practitioner Type: Progress Notes Filed: 08/20/2023 16:21 Note Text: have communicated my name and active licensure. The patient's identity and physical location were verified at the time of this visit. Either the patient or their legal automotive leasing sales representative has been informed of the risks and benefits of -- and alternatives to -- treatment through a remote evaluation and consents to proceed with the evaluation remotely. BMI MEDICAL CONSULT I have communicated my name and active licensure. The patient's identity and physical location were verified at the time of this visit. Either the patient or their legal automotive leasing sales representative has been informed of the [...] (BMI) of 50-59.9 in adult ([facility]) 08/20/2023 Angel's thyroiditis 08/20/2023 High blood cholesterol [...] (BMI) of 50-59.9 in adult ([facility]) - ICD9: V85.43, ICD10: Z68.43 (primary diagnosis) Weight decreasing - Behavioral intervention, - Medical nutrition therapy with dietitian, and - Psychology - COMPLETE BLOOD COUNT AND DIFFERENTIAL - COMPREHENSIVE METABOLIC PANEL - FERRITIN - FOLATE, SERUM - HEMOGLOBIN A1C - (more content not included)... [facility] 08-20-2023 History of Presen t illness Narrative Images from the original note were not included. have communicated my name and active licensure. The patient's identity and physical location were verified at the time of this visit. Either the patient or their legal automotive leasing sales representative has been informed of the risks and benefits of -- and alternatives to -- treatment through a remote evaluation and consents to proceed with the evaluation remotely. BMI MEDICAL CONSULT I have communicated my name and active licensure. The patient's identity and physical location were verified at the time of this visit. 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 Please excuse errors in can pusher. Jun, Dietary surveillance and counseling (ICD-10 - [...] for a goal of 5% weight reduction. [facility] Other 08-30-2023 Evaluation note* Encounter Date Diagnosis [...] on in the past and denies side yeclppb-Pqdxl-bx-care A1c today 5.4%-Follow up in clinic in 4 weeksThis note was created with voice recognition software. Please excuse errors in can pusher. Dec, Dietary surveillance and counseling (ICD-10 - [...] premade protein drink for breakfast, by plain Yoruba yogurt and flavor yourself with cinnamon or [...] with the patient, and documenting clinical information. [facility] Other Chief complaint+Reason for visit Narrative* Chief Complaint Obesity Reason for Visit Exercise counseling Severe obesity (BMI >= 40) [facility] Work Phone: Chief complaint+Reason for visit Narrative* Chief Complaint Pos test, Cramping, Vaginal bleeding Reason for Visit Exercise counseling Severe obesity (BMI >= 40) [facility] Work Phone: Evaluation noteNo assessment information available [facility] Work Phone: Evaluation note* Diagnosis Onset Date Resolution Status Exercise counseling acute Severe obesity (BMI >= 40) delilah kevin [facility] Work Phone: evaluation note* Diagnosis Body mass index (BMI) of 50-59.9 in adult ([facility])- Primary Body Mass Index 50.0-59.9, adult Angel's thyroiditis Chronic lymphocytic thyroiditis High blood cholesterol Pure hypercholesterolemia [facility] Diagnosis NO SHOW- Primary [facility] Diagnosis Obesity, Class III, BMI 40-49.9 (morbid obesity) ([facility])- Primary Morbid obesity Dietary counseling Dietary surveillance and counseling [facility]* Diagnosis Vitamin D deficiency- Primary Unspecified vitamin D deficiency [facility] this [facility] Diagnosis 25 weeks gestation of Second trimester state, incidental Diabetes mellitus screening Screening for diabetes mellitus size inconsistent with dates H/O premature delivery documented in this encounter [facility] HealthcareEvaluation note* Diagnosis Encounter for follow-up ultrasound of anatomy- Primary History of pre-eclampsia in prior , currently with other poor obstetric history History of delivery, currently with history of pre-term labor Obesity affecting in second trimester, unspecified obesity type documented in this encounter [facility]* Diagnosis Third trimester state, incidental 29 weeks gestation of documented in this encounter [facility] HealthcareEvaluation note* Diagnosis Third trimester state, incidental 31 weeks gestation of H/O premature delivery documented in this encounter [facility] HealthcareEvaluation note* Diagnosis 33 weeks gestation of Third trimester state, incidental H/O premature delivery Thyroid disease ([facility]) Unspecified disorder of thyroid H/O pre-eclampsia in [...] Fallopian tube removed Hospitalization History See Above [facility] Other Hospital Discharge instructions Additional Instructions You may take [id number] cough and cold medication as needed You may take [id number]-ket-eosvnei Tylenol and/or ibuprofen as needed Increase oral fluids Follow-up with family doctor as needed Return to the ER for any acute difficulty breathing high fever vomiting or any other [facility] Phone: Hospital Discharge instructions Additional Instructions Nothing into vagina until seen by FIELD PROFESSIONAL May take Tylenol for discomfort Increase oral fluids Follow-up with FIELD PROFESSIONAL Return to the ER for heavy bleeding greater than a pad an hour feeling dizzy lightheaded or any other [facility] Work Phone: Hospital Discharge instructions Additional Instructions Follow-up with your OB in the next week.[facility] Work Phone: InstructionsNot on filedocumented in this encounter [facility] (n[facility]ative)* Diagnostic Procedure Only (Routine) - Pending Review Specialty Diagnoses / Procedures Referred By Wendy campos Referred To Contact [facility] Diagnoses Body mass index (BMI) of 50-59.9 in adult (HCC) Procedures US ABD RIGHT UPPER QUADRANT US ABDOMINAL REAL TIME W/IMAGE LIMITED Tonya Senior, SCOOPER [address] [place] [address] [place] [id number] Referral ID Status Reason Start Date Expiration Date Visits Requested Visits Authorized [id number] Pending Review Auto-Generat ed Referral 08/20/2023 09/18/2024 1 1 * Outpatient Procedure (Routine) - Pending Review Specialty Diagnoses / Procedures Referred By Wendy t Referred To [facility] Diagnoses Body mass index (BMI) of 50-59.9 in adult (HCC) Procedures ECG COMPLETE ECG ROUTINE ECG W/LEAST 12 LDS W/I&R Tonya Senior APRN.[facility] [address] [place] [address] [facility] [place] [address] [place], [place] [id number] Referral ID Status Reason Start Date Expiration Date Visits Requested Visits Authorized [id number] Pending Review Auto-Generat ed Referral 08/20/2023 08/19/2024 1 1 [facility] Summary Purpose Family History No Family [...] and content) DATE CREATED AUTHOR 10/31/2017 Martinez Maury [facility] DATE CREATED AUTHOR AUTHOR'S ORGANIZ ATION 04/23/2020 [facility] DATE CREATED AUTHOR AUTHOR'S ORGANIZ ATION 08/08/2020 [facility] DATE CREATED AUTHOR AUTHOR'S ORGANIZ ATION 08/22/2020 [facility] DATE CREATED AUTHOR AUTHOR'S ORGANIZ ATION 06/11/2022 [facility] DATE CREATED AUTHOR AUTHOR'S ORGANIZ ATION 09/06/2023 [facility] DATE CREATED AUTHOR AUTHOR'S ORGANIZ ATION 10/03/2023 [facility] DATE CREATED AUTHOR AUTHOR'S ORGANIZ ATION 10/18/2023 [facility] DATE CREATED AUTHOR AUTHOR'S ORGANIZ ATION 01/20/2024 [facility] DATE CREATED AUTHOR AUTHOR'S ORGANIZ ATION 03/19/2024 [facility] DATE CREATED AUTHOR AUTHOR'S ORGANIZ ATION 04/30/2024 [facility] DATE CREATED AUTHOR AUTHOR'S ORGANIZ ATION 05/05/2024 [facility] EPIC Care Teams (unrecognized [...] 2023 End: October 06, 2023 Marychuy Kyle , PUBLIC ACCOUNTANT-BC Emergency Provider Active Start: October 06, 2023 End: October 06, 2023 Team Status: Inactive Member Role Status Dates Services [facility] Primary Care Provider Active Start: February 26, 2024 End: February 26, 2024 Ck To PA-C Emergency Provider Active Start: February 26, 2024 End: February 26, 2024 Team Status: Inactive Member Role Status Dates Services [facility] Primary Care Provider Active Start: March [...] or prosecute any alcohol or drug abuse patient.[facility] Hospital[facility] the event this information is protected by the Federal Confidentiality of Alcohol and Drug Abuse Patient Records regulations: The Federal rules restrict any use of the information to criminally investigate or prosecute any alcohol or drug abuse patient.[facility] the event this information is protected by the Federal Confidentiality of Alcohol and Drug Abuse Patient Records regulations: The Federal rules restrict any use of the information to criminally investigate or prosecute any alcohol or drug abuse patient.[facility] the event this information is protected by the Federal Confidentiality of Alcohol and Drug Abuse Patient Records regulations: The Federal rules restrict any use of the information to criminally investigate or prosecute any alcohol or drug abuse patient.[facility] the event this information is protected by the Federal Confidentiality of Alcohol and Drug Abuse Patient Records regulations: The Federal rules restrict any use of the information to criminally investigate or prosecute any alcohol or drug abuse patient.[facility] the event this information is protected by the Federal Confidentiality of Alcohol and Drug Abuse Patient Records regulations: The Federal rules restrict any use of the information to criminally investigate or prosecute any alcohol or drug abuse patient.[facility] FOR RECORDS PERTAINING TO PATIENTS WHO [...] BE BASED ON THE PRIMARY CLINICAL RECORDS. [facility]. provides no warranty or guarantee of the accuracy or completeness of information in this document.
[2024-05-08 13:32] VITALS: TEMP 35.6; TEMP 35.7
[2024-05-08 13:33] VITALS: BP 120/68; PULSE 87
== END 2024-05-08 14:07 | disposition home or self-care (01) ==
LOC: FBCO 09:01 → FBC 13:08
PROVIDERS: Visit Provider Obstetrics & Gynecology
DX: O26.893 Other specified pregnancy related conditions, third trimester (principal); Z3A.35 35 weeks gestation of pregnancy
CPT/HCPCS: 76818

== ENCOUNTER 2024-05-11 05:38 | Outpatient (OUT) | payer MEDICAID, SELFPAY ==
--- OUTSIDE RECORDS SUMMARY | 2024-05-11 05:41 | XMS_ITS | CCD ---
Author Organization [facility] Care Team Providers Care Data Transcriber Name Role Phone Agustin Patton Unavailable Unavailable Agustin Patton Unavailable Unavailable Bayron Mccarty Unavailable Unavailable Unavailable Unavailable Unavailable Unavailable Unavailable Unavailable [facility], Services Primary Care Provider DEMETRIUS To Emergency Provider [phone] DR TACHO MENENDEZ Attending Unavailable DR TACHO MENENDEZ Consulting Unavailable DR TACHO MENENDEZ Admitting Unavailable [facility] Services Primary Care Provider Anabella [facility] Marychuy E Emergency Provider [phone] Nicholas Michaels Unavailable [facility] Services Primary Care Provider DO Nicholas Michaels Attending Provider [phone] Unavailable Primary Care Provider Unavailabl e Unavailable Primary Care Provider Unavailabl e LATONIA GREENE Attending Unavailable TONYA SENIOR Attending Unavailable [facility] Services Primary Care Provider An[facility] Marychuy E Emergency Provider LATONIA [...] Emergency Provider Ck To Attending Unavailable Ck oT Admitting Unavailable [facility], Services Primary Care Unavaila Marychuy [...] mg/ml oral solution (2 sources) Phenothiazine, Uncompetitive B-neqvfm-M-aspartate Receptor Antagonist, Sigma-1 Agonist Start: 02-26-2024 take [...] Daily 30 tablet 11 10/30/2023 10/29/2024 Active [place] (No Known Home Meds) (3 sources) Start: 10-06-2023 [place] (No Kn own Home Meds) Active October 06, 2023 12:00am Start: 06-18-2022 [place] (No Kn own Home Meds) Active June [...] oral solution (7 sources) alpha-Adrenergic Agonist, Uncompetitive F-vufklt-D-asparta te Receptor Antagonist, Sigma-1 Agonist Start: 2 [...] 26, 2019 12:58pm July 28, 2020 7:27pm Iyudmewh-Qoe-Pv-Fa () 1 mg Tablet (7 sources) Start: 12-31-2020 End: 07-04-2021 take 1 tablet by mouth once Ejeddvdx-Lyg-Ay-Fa () 1 mg Tablet Discontinued TAB PO December 30, 2020 11:00pm July 04, 2021 9:48am Start: 12-31-2020 End: 07-04-2021 take 1 tablet by mouth once Pnwlbbdd-Qja-Ti-F a () 1 mg Tablet Discontinued TAB PO December 31, 2020 12:00am July 04, 2021 10:48am progesterone 100 mg oral capsule (9 sources) Progesterone Start: 07-28-2020 End: 12-31-2020 Progesterone Micronized Discontinued 100 MG VAGINAL Twice daily July 28, 2020 12:00am December 31, 2020 9:55am Start: 06-19-2020 take 1 capsule by [facility] twice daily Progesterone Micronized 100 MG Oral Capsule TAKE 1 CAPSULE Twice daily insert capsules vaginally Quantity: 30 Refills: 3 Bayron Mccarty MD Start : 19-Jun-2020 Active sennosides, shelter 8.6 mg oral tablet (1 source) take 4 tablets by [facility] every twenty-four hours Senna 8.6 MG 4 [...] HORMONEon 1 07-04-2023 TSH Qn 2.422 m[IU]/L [facility] Urinalysis macro (dipstick) panel (U)on 05-03-2024 Bilirubin, UA Negative Negative - 4(70) +++ mg/dL [facility] Blood, UA Negative Negative - 50 Bradley/mcL [facility] Clarity, UA Clear [facility] Color, UA Yellow [facility] Glucose, UA Negative Negative - 1999(110) ++++ mg/dL [facility] Interpretation and review of laboratory results Abnormal [facility] Ketones, UA Negative Negative - 160(16) ++++ mg/dL [facility] Leukocytes, UA Positive Negative - 500+++ Gabby/mcL [facility] Comment on above: small Nitrite, UA Negative Negative - Positive [facility] pH, UA 6 5 - 9 [facility] Protein, UA Negative Negative - 1999(20) ++++ mg/dL [facility] Spec Grav, UA 1.03 1 - 1.03 [facility] Urobilinogen, UA 0.2 0.2 - 12 mg/dL [facility] Urinalysis macro (dipstick) panel (U)on 04-22-2024 Bilirubin, UA Negative Negative - 4(70) +++ mg/dL [facility] Blood, UA Negative Negative - 50 Bradley/mcL [facility] Clarity, UA Clear [facility] Color, UA Yellow [facility] Glucose, UA Negative Negative - 1999(110) ++++ mg/dL [facility] Interpretation and review of laboratory results Abnormal [facility] Ketones, UA Negative Negative - 160(16) ++++ mg/dL [facility] Leukocytes, UA Trace Negative - 500+++ Gabby/mcL [facility] Nitrite, UA Negative Negative - Positive [facility] pH, UA 6 5 - 9 [facility] Protein, UA Positive Negative - 1999(20) ++++ mg/dL [facility] Comment on above: 30 Spec Grav, UA 1.025 1 - 1.03 [facility] Urobilinogen, UA 1.0 0.2 - 12 mg/dL [facility] Urinalysis macro (dipstick) panel (U)on 04-06-2024 Bilirubin, UA Negative Negative - 4(70) +++ mg/dL [facility] Blood, UA Negative Negative - 50 Bradley/mcL [facility] Clarity, UA Clear [facility] Color, UA Yellow [facility] Glucose, UA Negative Negative - 1999(110) ++++ mg/dL [facility] Interpretation and review of laboratory results Abnormal [facility] Ketones, UA Negative Negative - 160(16) ++++ mg/dL [facility] Leukocytes, UA Positive Negative - 500+++ Gabby/mcL [facility] Comment on above: small Nitrite, UA Negative Negative - Positive [facility] pH, UA 7 5 - 9 [facility] Protein, UA Negative Negative - 1999(20) ++++ mg/dL [facility] Spec Grav, UA 1.02 1 - 1.03 [facility] Urobilinogen, UA 0.2 0.2 - 12 mg/dL [facility] Urinalysis macro (dipstick) panel (U)on 03-22-2024 Bilirubin, UA Positive Negative - 4(70) +++ mg/dL [facility] Blood, UA Negative Negative - 50 Bradley/mcL [facility] Clarity, UA Clear [facility] Color, UA Yellow [facility] Glucose, UA Negative Negative - 1999(110) ++++ mg/dL [facility] Interpretation and review of laboratory results Normal [facility] Ketones, UA Positive Negative - 160(16) ++++ mg/dL [facility] Leukocytes, UA Positive Negative - 500+++ Gabby/mcL [facility] Nitrite, UA Negative Negative - Positive [facility] pH, UA 7 5 - 9 [facility] Protein, UA Positive Negative - 1999(20) ++++ mg/dL [facility] Spec Grav, UA 1.025 1 - 1.03 [facility] Urobilinogen, UA 1.0 0.2 - 12 mg/dL [facility] ALL CBC WITH AUTO DIFFon BASOPHILS ABSOLUTE AUTO 0 [facility] Basophils/100 WBC (Bld) 0.5 % 0.2 - 2.0 % [facility] Eosinophils/100 WBC (Bld) 2.4 % 0.9 - 7.0 % [facility] Erythrocyte distribution width (RBC) [Ratio] 13.2 % 11.0 - 15.0 % [facility] Hematocrit (Bld) [Volume fraction] 33.2 % Low 36.0 - 48.0 % [facility] Hemoglobin (Bld) [Mass/Vol] 11.1 g/dL Low 12.0 - 16.0 g/dL [facility] IMMATURE GRANULOCYTES ABS AUTO 0.02 [facility] Immature granulocytes/100 WBC (Bld) 0.3 % 0.0 - 0.5 % [facility] Interpretation and review of laboratory results Abnormal [facility] LYMPHOCYTES ABSOLUTE AUTO 2.1 [facility] Lymphocytes/100 WBC (Bld) 32.5 % 20.5 - 60.0 % [facility] MCH (RBC) [Entitic mass] 30.5 pg 26.7 - 34.[address] [facility] MCHC (RBC) [Mass/Vol] 33.4 g/dL 29.9 - 35.2 g/dL [facility] MCV (RBC) [Entitic vol] 91.2 fL 81.0 - 99.[address] [facility] MONOCYTES ABSOLUTE AUTO 0.3 [facility] Monocytes/100 WBC (Bld) 4.6 % 1.7 - 12.0 % [facility] NEUTROPHILS ABSOLUTE AUTO 3.9 [facility] Neutrophils/100 WBC (Bld) 59.7 % 43.0 - 75.0 % [facility] Platelet mean volume (Bld) [Entitic vol] 9.3 fL Low 9.5 - 13.[address] [facility] TBH EO # 0.2 [facility] TB PLT 342 [facility] RBC 3.[address] [facility] TB WBC 6.6 [facility] BioFire Not Detectedon 03-05 BioFire Not Detected Not detected Normal Not Detecte Eboni angulo [facility] Comment on above: Result Comment: This is a duplicate RP2.1 COVID (PCR) result to be used for statistical tracking purpose only. PERFORMED BY: [facility] [address] [place] [address] PATHOLOGIST [employer] LION STANLEY M.D. Performed By: #### B IOFIRECOVNOTDE, QS, RESP PANEL UPP. #### [facility] [address] COVID-19 Detected/Not Detect edOrdered By: Devika De La Garza on 03-05-2024 SARS-CoV-2 (COVID-19) RNA YANET+non-probe Ql (Nph) Not detected Not Detecte [facility] Comment on above: This is a duplicate RP2.1 COVID (PCR) result to be used for statistical tracking purpose only. ECG 12 lead ECGon 03-05-2024 ECG 12 lead ECG [facility] [place] [address] [place] [address] Electrocardiograph Report Signed Patient: Jaleesa Arrieta MR#: [id number] [birth year] : 1990 Acct:[id number] Age/Sex: 33 / F ADM Date: 03/05/24 Loc: ER Room: Type: [facility] ER Attending Dr: Ordering Provider: Devika [...] Confirmed by DEVIKA DE LA GARZA DO ([id number]) on 03/06/2024 1:44:25 AM Referred By: Electronically Signed By: DEVIKA DE LA GARZA DO Transcribed By: MUS Signed By Devika De La Garza DO 03/06 0144 Normal [facility] Quick Strepon 03-05-2024 Quick Strep Streptococcus pyogen es Ag [Presence] in Throat by Rapid immunoassay Negative for Group A Strep Antigen Note 1 NOTE 2 Results are those of a screening test. NOTE 3 If clinically indicated please order a culture. NOTE 4 NOTE 5 Reference range = Negative PERFORMED BY: [place] [address] PATHOLOGIST [employer] LION STANLEY M.D. Normal [facility] Comment on above: Performed By: #### B IOFIRECOVNOTDE, QS, RESP PANEL UPP. #### [address] Respiratory (Upper) Panel, P CRon 03-05-2024 [...] A H3 Blank Space ------ PERFORMED BY: [place] [address] PATHOLOGIST [employer] LION STANLEY M.D. Normal [facility] Comment on above: Performed By: #### B IOFIRECOVNOTDE, QS, RESP PANEL UPP. #### [address] Respiratory pathogens DNA an d RNA panel - Nasopharynx by YANET with non-probe detectionOrdered By: Devika De La Garza on 03-05-2024 Respiratory pathogens DNA and RNA panel YANET+non-probe (Nph) [facility] Streptococcus pyogenes antig en detectionOrdered By: Devika De La Garza on 03-05-2024 S. pyogenes Ag Ql (Unsp spec) [facility] XR chest 1V portableon 03-05 XR chest 1V portable [facility] [place] [address] [place] [address] XRay Report Signed Patient: Jaleesa Arrieta MR#: [id number] [birth year] : 1990 Acct:[id number] Age/Sex: 33 / F ADM Date: 03/05/24 Loc: ER Room: Type: [facility] ER Attending Dr: Copies to: Devika De [...] Priscilla Cunningham M.D.03/05/2024 9:34 PM Dictation Location: [place] [address] Transcribed By: [facility] 03/05/242133 Dictated By: Priscilla Cunningham MD 03/05/242130 Signed By: 03/05/242133 Normal [facility] Quick Strepon 02-26-2024 Quick Strep Streptococcus pyogen es Ag [Presence] in Throat by Rapid immunoassay Negative for Group A Strep Antigen Note 1 NOTE 2 Results are those of a screening test. NOTE 3 If clinically indicated please order a culture. NOTE 4 NOTE 5 Reference range = Negative PERFORMED BY: [place] [address] PATHOLOGIST [employer] LION STANLEY M.D. Normal [facility] Comment on above: Performed By: #### Q S #### [address] Streptococcus pyogenes antig en detectionOrdered By: Ck To on 02-26-2024 S. pyogenes Ag Ql (Unsp spec) [facility] Urinalysis macro (dipstick) panel (U)on 02-23-2024 Bilirubin, UA Negative Negative - 4(70) +++ mg/dL [facility] Blood, UA Negative Negative - 50 Bradley/mcL [facility] Clarity, UA Clear [facility] Color, UA Yellow [facility] Glucose, UA Negative Negative - 1999(110) ++++ mg/dL [facility] Interpretation and review of laboratory results Abnormal [facility] Ketones, UA Negative Negative - 160(16) ++++ mg/dL [facility] Leukocytes, UA Positive Negative - 500+++ Gabby/mcL [facility] Comment on above: small Nitrite, UA Negative Negative - Positive [facility] pH, UA 7 5 - 9 [facility] Protein, UA Negative Negative - 1999(20) ++++ mg/dL [facility] Spec Grav, UA 1.02 1 - 1.03 [facility] Urobilinogen, UA 0.2 0.2 - 12 mg/dL [facility] ALL THYROID STIM HORMONEon 0 01-26-2024 TSH Qn 2.645 m[IU]/L [facility] Urinalysis macro (dipstick) panel (U)on 01-20-2024 Bilirubin, UA Negative Negative - 4(70) +++ mg/dL [facility] Blood, UA Negative Negative - 50 Bradley/mcL [facility] Clarity, UA Clear [facility] Color, UA Yellow [facility] Glucose, UA Negative Negative - 1999(110) ++++ mg/dL [facility] Interpretation and review of laboratory results Abnormal [facility] Ketones, UA Negative Negative - 160(16) ++++ mg/dL [facility] Leukocytes, UA Trace Negative - 500+++ Gabby/mcL [facility] Nitrite, UA Negative Negative - Positive [facility] pH, UA 6.5 5 - 9 [facility] Protein, UA Negative Negative - 1999(20) ++++ mg/dL [facility] Spec Grav, UA 1.020 1 - 1.03 [facility] Urobilinogen, UA 0.2 0.2 - 12 mg/dL [facility] Alanine aminotransferase [En zymatic activity/volume] in Serum or PlasmaOrdered By: Marychuy Kyle on 10-06-2023 ALT [Catalytic activity/Vol] 13 U/L Normal 7-52 [facility] Comment on above: Performed By: #### C BC, CMP, HCGQNT #### [facility] [address] Albumin [Mass/volume] in Ser um or Plasma by Bromocresol green (BCG) dye binding methoOrdered By: Marychuy Jeronimoimore on 10-06-2023 Albumin BCG dye [Mass/Vol] 3.8 g/dL 3.5-5.7 [facility] Alkaline phosphatase [Enzyma tic activity/volume] in Serum or PlasmaOrdered By: Marychuy Wangore on 10-06-2023 ALP [Catalytic activity/Vol] 61 U/L Normal 34-104 [facility] Comment on above: Performed By: #### C BC, CMP, HCGQNT #### [facility] [address] Aspartate aminotransferase [ Enzymatic activity/volume] in Serum or PlasmaOrdered By: Marychuy Bullimore on 10-06-2023 AST [Catalytic activity/Vol] 13 U/L Normal 13-39 [facility] Comment on above: Performed By: #### C BC, CMP, HCGQNT #### [address] Automated basophil %Ordered By: Marychuy Bullimore on 10-06-2023 Basophils/100 WBC (Bld) 0.6 % Normal . [facility] Comment on above: Performed By: #### C BC, CMP, HCGQNT #### [address] Automated basophil countOrde red By: Marychuy Bullimore on 10-06-2023 Basophils (Bld) [#/Vol] 0.0 10*3/uL Normal 0.0-0.2 [facility] Comment on above: Result Comment: PERF ORMED BY: [place] [address] PATHOLOGIST [employer] LION STANLEY M.D. Performed By: #### C BC, CMP, HCGQNT #### [address] Automated blood monocyte cou ntOrdered By: Marychuy Bullimore on 10-06-2023 Monocytes (Bld) [#/Vol] 0.5 10*3/uL Normal 0.0-0.8 [facility] Comment on above: Performed By: #### C BC, CMP, HCGQNT #### [address] Automated eosinophil %Ordere d By: Marychuy Bullimore on 10-06-2023 Eosinophils/100 WBC (Bld) 0.7 % Normal . [facility] Comment on above: Performed By: #### C BC, CMP, HCGQNT #### [address] Automated eosinophil countOr dered By: Marychuy Bullimore on 10-06-2023 Eosinophils (Bld) [#/Vol] 0.1 10*3/uL Normal 0.0-0.45 [facility] Comment on above: Performed By: #### C BC, CMP, HCGQNT #### [facility] [address] Automated epithelial cells c ount in urine sediment (number/area)Ordered By: Marychuy Jeronimoimore on 10-06-2023 Epithelial cells Auto (Urine sed) [#/Area] 3-4 [HPF] 0-2 [facility] Automated monocyte %Ordered By: Marychuy Bullimore on 10-06-2023 Monocytes/100 WBC (Bld) 6.7 % Normal . [facility] Comment on above: Performed By: #### C BC, CMP, HCGQNT #### [address] Automated neutrophil %Ordere d By: Marychuy Jeronimoimore on 10-06-2023 Neutrophils/100 WBC (Bld) 54.4 % Normal . [facility] Comment on above: Performed By: #### C BC, CMP, HCGQNT #### [facility] [address] [place] [address] Bacteria [Presence] in Urine by AutomatedOrdered By: Marychuy Kyle on 10-06-2023 Bacteria Auto Ql (U) None seen [HPF] None Seen [facility] Bilirubin Test strip Ql (U)O rdered By: Marychuy Jeronimoimore on 10-06-2023 Bilirubin Ql (U) Negative Negative [facility] Bilirubin.total [Mass/volume ] in Serum or PlasmaOrdered By: Marychuy Phaniimore on 10-06-2023 Bilirubin [Mass/Vol] 0.2 mg/dL Low 0.3-1.0 [facility] Comment on above: Performed By: #### C BC, CMP, HCGQNT #### [facility] [address] [place] [address] Calcium [Mass/volume] in Ser um or PlasmaOrdered By: Marychuy Bullimore on 10-06-2023 Calcium [Mass/Vol] 9.4 mg/dL Normal 8.6-10.3 [facility] Comment on above: Performed By: #### C BC, CMP, HCGQNT #### [facility] [address] [place] [address] [place] Carbon dioxide, total [Moles /volume] in Serum or PlasmaOrdered By: Marychuy Phaniimore on 10-06-2023 CO2 [Moles/Vol] 25.5 mmol/L Normal 21.0-31.0 [facility] Comment on above: Performed By: #### C BC, CMP, HCGQNT #### [facility] [address] Chloride [Moles/volume] in S sondra or PlasmaOrdered By: Marychuy Bullimore on 10-06-2023 Chloride [Moles/Vol] 105 mmol/L Normal 98-107 [facility] Comment on above: Performed By: #### C BC, CMP, HCGQNT #### [facility] [address] Choriogonadotropin.beta subu nit [Units/volume] in Serum or PlasmaOrdered By: Marychuy Jeronimoimore on 10-06-2023 HCG.beta subunit Qn 2799.00 m[IU]/mL [facility] Comment on above: Approximate Approxim ate hCG Gestational Age Range (mIU/ml) (weeks)0.2-1 5-50 1-2 50-500 2-3 100-5,000 3-4 500-10,000 4-5 1,000-50,000 5-6 10,000-100,000 6-8 15,000-200,000 8-12 10,000-100,000 Color of Urine by AutoOrdere d By: Marychuy Kyle on 10-06-2023 Color (U) Yellow Normal Yellow [facility] Comment on above: Order Comment: NEED MORE SPECIMEN Name Collection Type:: Clean-Voided Midstream Performed By: #### A DDONUAPLUS #### [facility] [address] Complete Blood Count Auto Di ffon 10-06-2023 Mean Corpuscular HGB Conc 34.4 g/dL Normal 32.0-35.0 [facility] Comment on above: Performed By: #### C BC, CMP, HCGQNT #### [address] Monocytes/100 WBC (Bld) 17.37 % Normal 0.00-20.00 [facility] Comment on above: Performed By: #### C BC, CMP, HCGQNT #### [address] NRBC% 0.2 /100{WBC} Normal 0-0.5 [facility] Comment on above: Performed By: #### C BC, CMP, HCGQNT #### [address] Comprehensive Metabolic Pane panchito 10-06-2023 Albumin [Mass/Vol] 3.8 g/dL Normal 3.5-5.7 [facility] Comment on above: Performed By: #### C BC, CMP, HCGQNT #### [address] Creatinine Clr Calc Pharmacy 180.48 Normal [facility] Comment on above: Performed By: #### C BC, CMP, HCGQNT #### [address] GFR/1.73 sq M.predicted MDRD (S/P/Bld) [Vol rate/Area] mL/min/{1.73_m2} Normal [facility] Comment on above: Performed By: #### C BC, CMP, HCGQNT #### [address] Creatinine [Mass/volume] in Serum or PlasmaOrdered By: Marychuy Kyle on 10-06-2023 Creatinine [Mass/Vol] 0.63 mg/dL Normal 0.60-1.20 [facility] Comment on above: Performed By: #### C BC, CMP, HCGQNT #### [address] Dipstick and Microscopicon 0 10-06-2023 Appearance (U) Clear Normal Clear [facility] Comment on above: Order Comment: NEED MORE SPECIMEN Name Collection Type:: Clean-Voided Midstream Performed By: #### A DDONUAPLUS #### [address] Bacteria,Urine None Seen Normal None Seen [facility] Comment on above: Order Comment: NEED MORE SPECIMEN Name Collection Type:: Clean-Voided Midstream Performed By: #### A DDONUAPLUS #### [address] Bilirubin,Urine Negative Normal Negative [facility] Comment on above: Order Comment: NEED MORE SPECIMEN Name Collection Type:: Clean-Voided Midstream Performed By: #### A DDONUAPLUS #### [address] Glucose Ql (U) Normal Normal Normal [facility] Comment on above: Order Comment: NEED MORE SPECIMEN Name Collection Type:: Clean-Voided Midstream Performed By: #### A DDONUAPLUS #### [address] Hyaline Casts,Urine 0-8 Normal 0-8 [facility] Comment on above: Order Comment: NEED MORE SPECIMEN Name Collection Type:: Clean-Voided Midstream Result Comment: PERF ORMED BY: [place] [address] PATHOLOGIST [employer] LION STANLEY M.D. Performed By: #### A DDONUAPLUS #### [address] Ketones Ql (U) Negative Normal Negative [facility] Comment on above: Order Comment: NEED MORE SPECIMEN Name Collection Type:: Clean-Voided Midstream Performed By: #### A DDONUAPLUS #### [address] Leukocyte esterase Test strip Ql (U) 1+ High Negative [facility] Comment on above: Order Comment: NEED MORE SPECIMEN Name Collection Type:: Clean-Voided Midstream Performed By: #### A DDONUAPLUS #### [place] [address] [place] Nitrite,Urine Negative Normal Negative [facility] Comment on above: Order Comment: NEED MORE SPECIMEN Name Collection Type:: Clean-Voided Midstream Performed By: #### A DDONUAPLUS #### [place] [address] [place] Occult Blood,Urine Negative Normal Negative [facility] Comment on above: Order Comment: NEED MORE SPECIMEN Name Collection Type:: Clean-Voided Midstream Result Comment: PERF ORMED BY: [place] [address] PATHOLOGIST [employer] LION STANLEY M.D. Performed By: #### A DDONUAPLUS #### [place] [address] [place] Protein,Urine Negative Normal Negative [facility] Comment on above: Order Comment: NEED MORE SPECIMEN Name Collection Type:: Clean-Voided Midstream Performed By: #### A DDONUAPLUS #### [place] [address] [place] RBC LM.HPF (Urine sed) [#/Area] 0 /[HPF] Normal 0-4 [facility] Comment on above: Order Comment: NEED MORE SPECIMEN Name Collection Type:: Clean-Voided Midstream Performed By: #### A DDONUAPLUS #### [place] [address] [place] Specificy [place],Urine 1.017 Normal 1.001-1.030 [facility] Comment on above: Order Comment: NEED MORE SPECIMEN Name Collection Type:: Clean-Voided Midstream Performed By: #### A DDONUAPLUS #### [place] [address] [place] Squamous Epithelial Cell,Urine 3-4 High 0-2 [facility] Comment on above: Order Comment: NEED MORE SPECIMEN Name Collection Type:: Clean-Voided Midstream Performed By: #### A DDONUAPLUS #### [place] [address] [place] Urobilinogen,Urine Normal Normal Normal The [facility] Comment on above: Order Comment: NEED MORE SPECIMEN Name Collection Type:: Clean-Voided Midstream Performed By: #### A DDONUAPLUS #### [address] WBC,Urine 3-4 Normal 0-4 [facility] Comment on above: Order Comment: NEED MORE SPECIMEN Name Collection Type:: Clean-Voided Midstream Performed By: #### A DDONUAPLUS #### [address] Erythrocyte distribution wid th [Ratio] by Automated countOrdered By: Marychuy Wangore on 10-06-2023 Erythrocyte distribution width (RBC) [Ratio] 13.4 % Normal 11.9-15.3 [facility] Comment on above: Performed By: #### C BC, CMP, HCGQNT #### [address] Erythrocytes [#/area] in Uri ne sediment by Automated countOrdered By: Marychuy Kyle on 10-06-2023 RBC Auto (Urine sed) [#/Area] 0-1 [HPF] 0-4 [facility] Erythrocytes [#/volume] in B lood by Automated countOrdered By: Marychuy Wangore on 10-06-2023 RBC (Bld) [#/Vol] 4.08 10*6/uL Normal 3.60-5.[address] [facility] Comment on above: Performed By: #### C BC, CMP, HCGQNT #### [address] Glucose [Mass/volume] in Ser um or PlasmaOrdered By: Marychuy Jeronimoimore on 10-06-2023 Glucose [Mass/Vol] 100 mg/dL Normal 70-100 [facility] Comment on above: ADA recommended refe rence rangeRandom Glucose Reference Range is dependent on time and content of last meal. Glucose of more than 200 mg/dL in a nonstressed, ambulatory subject supports the diagnosis of Diabetes Mellitus. Result Comment: Lawrence om Glucose Reference Range is dependent on time and content of last meal. Glucose of more than 200 mg/dL in a nonstressed, ambulatory subject supports the diagnosis of Diabetes Mellitus. ADA recommended reference range Performed By: #### C BC, CMP, HCGQNT #### [address] HCG,Quantitativeon HCG,Quantitative 2799.00 m[iU]/mL Normal [facility] Comment on above: Result Comment: Appr oximate Approximate hCG Gestational Age Range (mIU/ml) (weeks) 0.2-1 5-50 1-2 50-500 2-3 100-5,000 3-4 500-10,000 4-5 1,000-50,000 5-6 10,000-100,000 6-8 15,000-200,000 8-12 10,000-100,000 PERFORMED BY: [place] [address] PATHOLOGIST [employer] LION STANLEY M.D. Performed By: #### C BC, CMP, HCGQNT #### [address] Hematocrit [Volume Fraction] of Blood by Automated countOrdered By: Marcyhuy Kyle on 10-06-2023 Hematocrit (Bld) [Volume fraction] 36.7 % Normal 34.0-46.4 [facility] Comment on above: Performed By: #### C BC, CMP, HCGQNT #### [address] Hemoglobin [Mass/volume] in BloodOrdered By: Marychuy Kyle on 10-06-2023 Hemoglobin (Bld) [Mass/Vol] 12.6 g/dL Normal 11.8-15.4 [facility] Comment on above: Performed By: #### C BC, CMP, HCGQNT #### [address] Ketones Auto test strip (U) [Mass/Vol]Ordered By: Marychuy Kyle on 10-06-2023 Ketones (U) [Mass/Vol] Negative Negative [facility] - UrinalysisOrder ed By: Mayrchuy Kyle on 10-06-2023 Hyaline casts LM Ql (Urine sed) 0-8 [LPF] 0-8 [facility] Leukocytes [#/area] in Urine sediment by Automated countOrdered By: Marychuy Kyle on 10-06-2023 WBC Auto (Urine sed) [#/Area] 3-4 [HPF] 0-4 [facility] Leukocytes [#/volume] correc inocencia for nucleated erythrocytes in Blood by Automated counOrdered By: Marychuy Kyle on 10-06-2023 WBC corrected for nucl RBC Auto (Bld) [#/Vol] 7.4 10*3/uL 3.8-11.6 [facility] Leukocytes [#/volume] in Blo od by Automated countOrdered By: Marychuy Kyle on 10-06-2023 WBC (Bld) [#/Vol] 7.4 10*3/uL Normal 3.8-11.6 [facility] Comment on above: Performed By: #### C BC, CMP, HCGQNT #### [facility] [address] [place] [address] Lymphocytes [#/volume] in Bl ood by Automated countOrdered By: Marychuy Kyle on 10-06-2023 Lymphocytes (Bld) [#/Vol] 2.8 10*3/uL Normal 1.00-4.8 [facility] Comment on above: Performed By: #### C BC, CMP, HCGQNT #### [facility] [address] [place] [address] [place] Lymphocytes/100 leukocytes i n Blood by Automated countOrdered By: Marychuy Kyle on 10-06-2023 Lymphocytes/100 WBC (Bld) 37.6 % Normal . [facility] Comment on above: Performed By: #### C BC, CMP, HCGQNT #### [facility] [address] [place] [address] [place] MCH [Entitic mass] by Automa inocencia countOrdered By: Marychuy Kyle on 10-06-2023 MCH (RBC) [Entitic mass] 31.0 pg Normal 24.7-34.3 [facility] Comment on above: Performed By: #### C BC, CMP, HCGQNT #### [facility] [address] MCHC Auto (RBC) [Mass/Vol]Or dered By: Marychuy Jeronimoimore on 10-06-2023 MCHC (RBC) [Mass/Vol] 34.4 g/dL 32.0-35.0 [facility] MCV [Entitic volume] by Auto mated countOrdered By: Marychuy Kyle on 10-06-2023 MCV (RBC) [Entitic vol] 90.1 fL Normal 80-100 [facility] Comment on above: Performed By: #### C BC, CMP, HCGQNT #### [facility] [address] [place] [address] Monocyte distribution width [Entitic volume] in Blood by AutomatedOrdered By: Marychuy Kyle on 10-06-2023 Monocyte distribution width Auto (Bld) [Entitic vol] 17.37 % 0.00-20.00 [facility] Neutrophils [#/volume] in Bl ood by Automated countOrdered By: Marychuy Kyle on 10-06-2023 Neutrophils (Bld) [#/Vol] 4.0 10*3/uL Normal 1.8-7.7 [facility] Comment on above: Performed By: #### C BC, CMP, HCGQNT #### [facility] [address] [place] [address] Nitrite Test strip Ql (U)Ord ered By: Marychuy Kyle on 10-06-2023 Nitrite Ql (U) Negative Negative [facility] No Panel InformationOrdered By: Marychuy Kyle on 10-06-2023 Estimated GFR (CKD-EPI) > 60.0 mL/Min [facility] Creatinine Clearance (Chem 180.48 [facility] Nucleated erythrocytes [Pres ence] in Blood by Automated countOrdered By: Marychuy Kyle on 10-06-2023 Nucleated RBC Auto Ql (Bld) 0.2 /100{WBC} 0-0.5 [facility] Platelet mean volume [Entiti c volume] in Blood by Automated countOrdered By: Marychuy Kyle on 10-06-2023 Platelet mean volume (Bld) [Entitic vol] 7.5 fL Normal 6.3-10.7 [facility] Comment on above: Performed By: #### C BC, CMP, HCGQNT #### [address] Platelets [#/volume] in Bloo d by Automated countOrdered By: Marychuy Bullimore on 10-06-2023 Platelets (Bld) [#/Vol] 367 10*3/uL Normal 150-450 [facility] Comment on above: Performed By: #### C BC, CMP, HCGQNT #### [address] Potassium [Moles/volume] in Serum or PlasmaOrdered By: Marychuy Bullimore on 10-06-2023 Potassium [Moles/Vol] 4.1 mmol/L Normal 3.5-5.1 [facility] Comment on above: Performed By: #### C BC, CMP, HCGQNT #### [address] Protein Auto test strip (U) [Mass/Vol]Ordered By: Marychuy Bullimore on 10-06-2023 Protein (U) [Mass/Vol] Negative Negative [facility] Protein [Mass/volume] in Ser um or PlasmaOrdered By: Marychuy Bullimore on 10-06-2023 Protein [Mass/Vol] 7.4 g/dL Normal 6.4-8.9 [facility] Comment on above: Performed By: #### C BC, CMP, HCGQNT #### [address] Serum globulin measurement b y calculation (mass/volume)Ordered By: Marychuy Bullimore on 10-06-2023 Globulin (S) [Mass/Vol] 3.6 g/dL Normal [facility] Comment on above: Performed By: #### C BC, CMP, HCGQNT #### [address] Serum or plasma albumin/glob ulin mass ratioOrdered By: Marychuy Bullimore on 10-06-2023 Albumin/Globulin [Mass ratio] 1.1 {ratio} Normal [facility] Comment on above: Performed By: #### C JOSELYN WRIGHT, HCGQNT #### [address] Serum or plasma anion gap de terminationOrdered By: Marychuy Phaniimore on 10-06-2023 Anion gap [Moles/Vol] 12.6 mmol/L Normal 6.0-15.0 [facility] Comment on above: Performed By: #### C ADRIANA, CMP, HCGQNT #### [address] Sodium [Moles/volume] in Ser um or PlasmaOrdered By: Marychuy Bullimore on 10-06-2023 Sodium [Moles/Vol] 139 mmol/L Normal 136-145 [facility] Comment on above: Performed By: #### C JOSELYN WRIGHT, HCGQNT #### [address] Specific gravity Auto test s trip (U) [Rel density]Ordered By: Marychuymargaux Kyle on 10-06-2023 Specific gravity (U) [Rel density] 1.017 1.001-1.030 [facility] Urea nitrogen [Mass/volume] in Serum or PlasmaOrdered By: Marychuy Wangore on 10-06-2023 Urea nitrogen [Mass/Vol] 7 mg/dL Normal 7-25 [facility] Comment on above: Performed By: #### C JOSELYN WRIGHT, HCGQNT #### [address] Urine clarity by refractomet ry automatedOrdered By: Marychuy Kyle on 10-06-2023 Clarity Refractometry automated (U) Clear Clear [facility] Urine glucose measurement by automated test strip (mass/volume)Ordered By: Marychuy Kyle on 10-06-2023 Glucose Auto test strip (U) [Mass/Vol] Normal mg/dL Normal [facility] Urine hemoglobin detection b y automated test stripOrdered By: Marychuy Kyle on 10-06-2023 Hemoglobin Auto test strip Ql (U) Negative Negative [facility] Urine leukocyte esterase det ection by automated test stripOrdered By: Marychuy Kyle on 10-06-2023 Leukocyte esterase Auto test strip Ql (U) 1+ Negative [facility] Urine pH measurement by auto mated test stripOrdered By: Marychuy Kyle on 10-06-2023 pH (U) 7.0 [pH] Normal 5.0-9.0 [facility] Comment on above: Order Comment: NEED MORE SPECIMEN Name Collection Type:: Clean-Voided Midstream Performed By: #### A DDONUAPLUS #### [facility] [address] Urobilinogen Auto test strip (U) [Mass/Vol]Ordered By: Marychuy Kyle on 10-06-2023 Urobilinogen (U) [Mass/Vol] Normal mg/dL Normal [facility] Basia 09-11-2023 LIZ Telephone (MARTIN) -------- MERTJALEESA Tatum ([id number]) 1990 F Date Time Provider Department 09/11/23 [...] Date Reviewed: 08/20/2023 Reviewed by: Tonya Senior APRN.BUSINESS INTELLIGENCE ARCHITECT - Fully Assessed Reason for Visit: Results [...] Encounter Status:Closed by TONYA SENIOR on 09/23/23 [facility] NICOTINE AND METAB, URon URIN ANABASINE QUANT <5 [facility] Comment on above: Order Comment: Speci men Type: URINE SPECIMEN Ordering Facility: [facility] Address: [address] [place] [address] Performed By: #### U NICOT #### [facility] CLIA [id number] [address] [id number] URIN COTININE QUANT <15 Normal [facility] Comment on above: Order Comment: Speci men Type: URINE SPECIMEN Ordering Facility: [facility] Address: [address] [place] [address] Performed By: #### U NICOT #### [facility] CLIA [id number] [address] [id number] URIN NICOTINE QUANT <15 Normal [facility] Comment on above: Order Comment: Speci men Type: URINE SPECIMEN Ordering Facility: [facility] Address: [address] [place] [address] Result Comment: INTE RPRETIVE INFORMATION: Nicotine and Metabolites, Urine, Quantitative Methodology: Quantitative Liquid Chromatography-Tandem Mass Spectrometry Positive cutoff: Nicotine 15 ng/mL Cotinine 15 ng/mL 0-PF-Ugdfzbcj 50 ng/mL Anabasine 5 ng/mL For medical [...] developed and its performance characteristics determined by [employer]. It has not been cleared or approved by the [place] Food and Drug Administration. This test was performed in a CLIA certified laboratory and is intended for clinical purposes. Performed By: [employer] [address] [place], [place] [id number] Family Therapist: Rex Zuleta MD, PhD CLIA Number: [id number] Performed By: #### U NICOT #### [facility] CLIA [id number] [address] [place] [address] URINE 3 [place] COTININE <50 Normal [facility] Comment on above: Order Comment: Speci men Type: URINE SPECIMEN Ordering Facility: [facility] Address: [address] [place] [address] Performed By: #### U NICOT #### [facility] CLIA [id number] [address] [place] [address] TOXICOLOGY SCREEN, ROUTINE U RINEon 09-08-2023 Amphetamines Confirm (U) [Mass/Vol] Negative Normal Negative [facility] Comment on above: Order Comment: Speci men Type: URINE SPECIMEN Ordering Facility: [facility] Address: [address] [place] [address] Result Comment: Cuto ff threshold at 1000 ng/mL. Performed By: #### U TOX2 #### [facility] CLIA [id number] [address] [place] [address] [place] BARBITURATES, URINE Negative Normal Negative [facility] Comment on above: Order Comment: Speci men Type: URINE SPECIMEN Ordering Facility: [facility] Address: [address] [place] [address] Result Comment: Cuto ff threshold at 200 ng/mL. Performed By: #### U TOX2 #### [facility] CLIA [id number] [address] [place] [address] [place] BENZODIAZEPINES, UR Negative Normal Negative [facility] Comment on above: Order Comment: Speci men Type: URINE SPECIMEN Ordering Facility: [facility] Address: [address] [place] [address] Result Comment: Cuto ff threshold at 200 ng/mL. Performed By: #### U TOX2 #### [facility] CLIA [id number] [address] [place] [address] [place] Cannabinoids Screen Ql (U) Negative Normal Negative [facility] Comment on above: Order Comment: Speci men Type: URINE SPECIMEN Ordering Facility: [facility] Address: [address] [place] [address] Result Comment: Cuto ff threshold at 50 ng/mL. Performed By: #### U TOX2 #### [facility] CLIA [id number] [address] [place] [address] [place] Cocaine Ql (U) Negative Normal Negative [facility] Comment on above: Order Comment: Speci men Type: URINE SPECIMEN Ordering Facility: [facility] Address: [address] [place] [address] Result Comment: Cuto ff threshold at 300 ng/mL. Performed By: #### U TOX2 #### [facility] CLIA [id number] [address] [place] [address] [place] Ethanol (U) [Mass/Vol] <11 Normal <11 [facility] Comment on above: Order Comment: Speci men Type: URINE SPECIMEN Ordering Facility: [facility] Address: [address] [place] [address] Performed By: #### U TOX2 #### [facility] CLIA [id number] [address] [place] [address] [place] Opiates Screen Ql (U) Negative Normal Negative [facility] Comment on above: Order Comment: Speci men Type: URINE SPECIMEN Ordering Facility: [facility] Address: [address] [place] [address] Result Comment: Cuto ff threshold at 300 ng/mL. Performed By: #### U TOX2 #### [facility] CLIA [id number] [address] [place] [address] [place] oxyCODONE cutoff Screen (U) [Mass/Vol] Negative Normal Negative [facility] Comment on above: Order Comment: Speci men Type: URINE SPECIMEN Ordering Facility: [facility] Address: [address] [place] [address] Result Comment: Cuto ff threshold at 100 ng/mL. Performed By: #### U TOX2 #### [facility] CLIA [id number] [address] [place] [address] [place] Phencyclidine Ql (U) Negative Normal Negative [facility] Comment on above: Order Comment: Speci men Type: URINE SPECIMEN Ordering Facility: [facility] Address: [address] [place] [address] Result Comment: Cuto ff threshold at 25 ng/mL. Performed By: #### U TOX2 #### [facility] CLIA [id number] [address] [place] [address] [place] 25(OH)D3 SerPl-mCncon 2023 25-hydroxyvitamin D3 [Mass/Vol] 11.9 ng/mL Low 31.0-80.0 [facility] Comment on above: Order Comment: Speci men Type: BLOOD SPECIMEN Ordering Facility: [facility] Address: [address] [place] [address] Performed By: #### 2 276-4, 2132-01, 2283-12 #### [facility] CLIA [id number] [address] [place] [address] [place] CBC W Auto Differential pane l (Bld)on 09-05-2023 Basophils (Bld) [#/Vol] 10*3/uL Normal <0.11 [facility] Comment on above: Order Comment: Speci men Type: BLOOD SPECIMEN Ordering Facility: [facility] Address: [address] [place] [address] Performed By: #### 2 276-4, 2132-01, 2283-12 #### [facility] CLIA [id number] [address] [place] [address] [place] Basophils/100 WBC (Bld) 0.3 % Normal [facility] Comment on above: Order Comment: Speci men Type: BLOOD SPECIMEN Ordering Facility: [facility] Address: [address] [place] [address] Performed By: #### 2 276-4, 2132-01, 2283-12 #### [facility] CLIA [id number] [address] [place] [address] [place] Differential cell count method Nom (Bld) Auto Normal [facility] Comment on above: Order Comment: Speci men Type: BLOOD SPECIMEN Ordering Facility: [facility] Address: [address] [place] [address] Performed By: #### 2 276-4, 2132-01, 2283-12 #### [facility] CLIA [id number] [address] [place] [address] [place] Eosinophils (Bld) [#/Vol] 0.09 10*3/uL Normal <0.46 [facility] Comment on above: Order Comment: Speci men Type: BLOOD SPECIMEN Ordering Facility: [facility] Address: [address] [place] [address] Performed By: #### 2 276-4, 2132-01, 2283-12 #### [facility] CLIA [id number] [address] [place] [address] [place] Eosinophils/100 WBC (Bld) 1.3 % Normal [facility] Comment on above: Order Comment: Speci men Type: BLOOD SPECIMEN Ordering Facility: [facility] Address: [address] [place] [address] Performed By: #### 2 276-4, 2132-01, 2283-12 #### [facility] CLIA [id number] [address] [place] [address] [place] Erythrocyte distribution width (RBC) [Ratio] 12.6 % Normal 11.5-15.0 [facility] Comment on above: Order Comment: Speci men Type: BLOOD SPECIMEN Ordering Facility: [facility] Address: [address] [place] [address] Performed By: #### 2 276-4, 2132-01, 2283-12 #### [facility] CLIA [id number] [address] [place] [address] [place] Hematocrit (Bld) [Volume fraction] 38.0 % Normal 36.0-46.0 [facility] Comment on above: Order Comment: Speci men Type: BLOOD SPECIMEN Ordering Facility: [facility] Address: [address] [place] [address] Performed By: #### 2 276-4, 2132-01, 2283-12 #### [facility] CLIA [id number] [address] [place] [address] [place] Hemoglobin (Bld) [Mass/Vol] 12.8 g/dL Normal 11.5-15.5 [facility] Comment on above: Order Comment: Speci men Type: BLOOD SPECIMEN Ordering Facility: [facility] Address: [address] [place] [address] Performed By: #### 2 276-4, 2132-01, 2283-12 #### [facility] CLIA [id number] [address] [place] [address] [place] Immature granulocytes (Bld) [#/Vol] 10*3/uL Normal <0.10 [facility] Comment on above: Order Comment: Speci men Type: BLOOD SPECIMEN Ordering Facility: [facility] Address: [address] [place] [address] Performed By: #### 2 276-4, 2132-01, 2283-12 #### [facility] CLIA [id number] [address] [place] [address] [place] Immature granulocytes/100 WBC (Bld) 0.1 % Normal [facility] Comment on above: Order Comment: Speci men Type: BLOOD SPECIMEN Ordering Facility: [facility] Address: [address] [place] [address] Performed By: #### 2 276-4, 2132-01, 2283-12 #### [facility] CLIA [id number] [address] [place] [address] [place] Lymphocytes (Bld) [#/Vol] 3.49 10*3/uL Normal 1.00-4.00 [facility] Comment on above: Order Comment: Speci men Type: BLOOD SPECIMEN Ordering Facility: [facility] Address: [address] [place] [address] Performed By: #### 2 276-4, 2132-01, 2283-12 #### [facility] CLIA [id number] [address] [place] [address] [place] Lymphocytes/100 WBC (Bld) 48.6 % Normal [facility] Comment on above: Order Comment: Speci men Type: BLOOD SPECIMEN Ordering Facility: [facility] Address: [address] [place] [address] Performed By: #### 2 276-4, 2132-01, 2283-12 #### [facility] CLIA [id number] [address] [place] [address] [place] MCH (RBC) [Entitic mass] 30.0 pg Normal 26.0-34.0 [facility] Comment on above: Order Comment: Speci men Type: BLOOD SPECIMEN Ordering Facility: [facility] Address: [address] [place] [address] Performed By: #### 2 276-4, 2132-01, 2283-12 #### [facility] CLIA [id number] [address] [place] [address] [place] MCHC (RBC) [Mass/Vol] 33.7 g/dL Normal 30.5-36.0 [facility] Comment on above: Order Comment: Speci men Type: BLOOD SPECIMEN Ordering Facility: [facility] Address: [address] [place] [address] Performed By: #### 2 276-4, 2132-01, 2283-12 #### [facility] CLIA [id number] [address] [place] [address] [place] MCV (RBC) [Entitic vol] 89.2 fL Normal 80.0-100.0 [facility] Comment on above: Order Comment: Speci men Type: BLOOD SPECIMEN Ordering Facility: [facility] Address: [address] [place] [address] Performed By: #### 2 276-4, 2132-01, 2283-12 #### [facility] CLIA [id number] [address] [place] [address] [place] Monocytes (Bld) [#/Vol] 0.48 10*3/uL Normal <0.87 [facility] Comment on above: Order Comment: Speci men Type: BLOOD SPECIMEN Ordering Facility: [facility] Address: [address] [place] [address] Performed By: #### 2 276-4, 2132-01, 2283-12 #### [facility] CLIA [id number] [address] [place] [address] [place] Monocytes/100 WBC (Bld) 6.7 % Normal [facility] Comment on above: Order Comment: Speci men Type: BLOOD SPECIMEN Ordering Facility: [facility] Address: [address] [place] [address] Performed By: #### 2 276-4, 2132-01, 2283-12 #### [facility] CLIA [id number] [address] [place] [address] [place] Neutrophils (Bld) [#/Vol] 3.09 10*3/uL Normal 1.45-7.50 [facility] Comment on above: Order Comment: Speci men Type: BLOOD SPECIMEN Ordering Facility: [facility] Address: [address] [place] [address] Performed By: #### 2 276-4, 2132-01, 2283-12 #### [facility] CLIA [id number] [address] [place] [address] [place] Neutrophils/100 WBC (Bld) 43.0 % Normal [facility] Comment on above: Order Comment: Speci men Type: BLOOD SPECIMEN Ordering Facility: [facility] Address: [address] [place] [address] Performed By: #### 2 276-4, 2132-01, 2283-12 #### [facility] CLIA [id number] [address] [place] [address] [place] Nucleated RBC (Bld) [#/Vol] 10*3/uL Normal <0.01 [facility] Comment on above: Order Comment: Speci men Type: BLOOD SPECIMEN Ordering Facility: [facility] Address: [address] [place] [address] Performed By: #### 2 276-4, 2132-01, 2283-12 #### [facility] CLIA [id number] [address] [place] [address] [place] Nucleated RBC/100 WBC (Bld) [Ratio] 0.0 /100 WBC Normal [facility] Comment on above: Order Comment: Speci men Type: BLOOD SPECIMEN Ordering Facility: [facility] Address: [address] [place] [address] Performed By: #### 2 276-4, 2132-01, 2283-12 #### [facility] CLIA [id number] [address] [place] [address] [place] Platelet mean volume (Bld) [Entitic vol] 9.2 fL Normal 9.0-12.7 [facility] Comment on above: Order Comment: Speci men Type: BLOOD SPECIMEN Ordering Facility: [facility] Address: [address] [place] [address] Performed By: #### 2 276-4, 2132-01, 2283-12 #### [facility] CLIA [id number] [address] [place] [address] [place] Platelets (Bld) [#/Vol] 361 10*3/uL Normal 150-400 [facility] Comment on above: Order Comment: Speci men Type: BLOOD SPECIMEN Ordering Facility: [facility] Address: [address] [place] [address] Performed By: #### 2 276-4, 2131-9, 8 #### [facility] CLIA [id number] [address] [place] [address] [place] RBC (Bld) [#/Vol] 4.26 10*6/uL Normal 3.90-5.20 [facility] Comment on above: Order Comment: Speci men Type: BLOOD SPECIMEN Ordering Facility: [facility] Address: [address] [place] [address] Performed By: #### 2 276-4, 9, 8 #### [facility] CLIA [id number] [address] [place] [address] [place] WBC (Bld) [#/Vol] 7.18 10*3/uL Normal 3.70-11.00 [facility] Comment on above: Order Comment: Speci men Type: BLOOD SPECIMEN Ordering Facility: [facility] Address: [address] [place] [address] Performed By: #### 2 276-4, 9, 2283-12 #### [facility] CLIA [id number] [address] [place] [address] [place] Comprehensive metabolic 2000 panelon 09-05-2023 Albumin [Mass/Vol] 4.0 g/dL Normal 3.9-4.9 [facility] Comment on above: Order Comment: Speci men Type: BLOOD SPECIMEN Ordering Facility: [facility] Address: [address] [place] [address] Performed By: #### 2 4323-8 #### [facility] CLIA [id number] [address] [place] [address] ALP [Catalytic activity/Vol] 91 U/L Normal 34-123 [facility] Comment on above: Order Comment: Speci men Type: BLOOD SPECIMEN Ordering Facility: [facility] Address: [address] [place] [address] Performed By: #### 2 4323-8 #### [facility] CLIA [id number] [address] [place] [address] ALT [Catalytic activity/Vol] 15 U/L Normal 7-38 [facility] Comment on above: Order Comment: Speci men Type: BLOOD SPECIMEN Ordering Facility: [facility] Address: [address] [place] [address] Performed By: #### 2 4323-8 #### [facility] CLIA [id number] [address] [place] [address] Anion gap [Moles/Vol] 10 mmol/L Normal 9-18 [facility] Comment on above: Order Comment: Speci men Type: BLOOD SPECIMEN Ordering Facility: [facility] Address: [address] [place] [address] Performed By: #### 2 4323-8 #### [facility] CLIA [id number] [address] [place] [address] AST [Catalytic activity/Vol] 13 U/L Normal 13-35 [facility] Comment on above: Order Comment: Speci men Type: BLOOD SPECIMEN Ordering Facility: [facility] Address: [address] [place], [place] [address] Performed By: #### 2 4323-8 #### [facility] CLIA [id number] [address] [place] [address] Bilirubin [Mass/Vol] 0.3 mg/dL Normal 0.2-1.3 [facility] Comment on above: Order Comment: Speci men Type: BLOOD SPECIMEN Ordering Facility: [facility] Address: [address] [place] [address] Performed By: #### 2 4323-8 #### [facility] CLIA [id number] [address] [place] [address] Calcium [Mass/Vol] 9.5 mg/dL Normal 8.5-10.2 [facility] Comment on above: Order Comment: Speci men Type: BLOOD SPECIMEN Ordering Facility: [facility] Address: [address] [place] [address] Performed By: #### 2 4323-8 #### [facility] CLIA [id number] [address] [place] [address] Chloride [Moles/Vol] 106 mmol/L High 97-105 [facility] Comment on above: Order Comment: Speci men Type: BLOOD SPECIMEN Ordering Facility: [facility] Address: [address] [place] [address] Performed By: #### 2 4323-8 #### [facility] CLIA [id number] [address] [place] [address] CO2 [Moles/Vol] 26 mmol/L Normal 22-30 [facility] Comment on above: Order Comment: Speci men Type: BLOOD SPECIMEN Ordering Facility: [facility] Address: [address] [place] [address] Performed By: #### 2 4323-8 #### [facility] CLIA [id number] [address] [place] [address] Creatinine [Mass/Vol] 0.75 mg/dL Normal 0.58-0.96 [facility] Comment on above: Order Comment: Speci men Type: BLOOD SPECIMEN Ordering Facility: [facility] Address: [address] [place] [address] Performed By: #### 2 4323-8 #### [facility] CLIA [id number] [address] [place] [address] Creatinine and Glomerular filtration rate.predicted panel (S/P/Bld) 109 mL/min/1.73m??? Normal >=60 [facility] Comment on above: Order Comment: Speci men Type: BLOOD SPECIMEN Ordering Facility: [facility] Address: [address] [place] [address] Result Comment: Stephani mated Glomerular Filtration Rate [...] GFR. Performed By: #### 2 4323-8 #### [facility] CLIA [id number] [address] [place] [address] Glucose [Mass/Vol] 104 mg/dL High 74-99 [facility] Comment on above: Order Comment: Laury bradshaw Type: BLOOD SPECIMEN Ordering Facility: [facility] Address: [address] [place] [address] Result Comment: The [place] Diabetes Association (ADA) provides guidance for cutoff [...] Standards of Medical Care in Diabetes 2016, [place] Diabetes Association. Diabetes Care. 2016.39(Suppl 1). Performed By: #### 2 4323-8 #### [facility] CLIA [id number] [address] [place] [address] Potassium [Moles/Vol] 4.2 mmol/L Normal 3.7-5.1 [facility] Comment on above: Order Comment: Laury bradshaw Type: BLOOD SPECIMEN Ordering Facility: [facility] Address: [address] [place] [address] Performed By: #### 2 4323-8 #### [facility] CLIA [id number] [address] [place] [address] Protein [Mass/Vol] 7.4 g/dL Normal 6.3-8.0 [facility] Comment on above: Order Comment: Laury bradshaw Type: BLOOD SPECIMEN Ordering Facility: [facility] Address: [address] [place] [address] Performed By: #### 2 4323-8 #### [facility] CLIA [id number] [address] [place] [address] Sodium [Moles/Vol] 142 mmol/L Normal 136-144 [facility] Comment on above: Order Comment: Speci men Type: BLOOD SPECIMEN Ordering Facility: [facility] Address: [address] [place] [address] Performed By: #### 2 4323-8 #### [facility] CLIA [id number] [address] [place] [address] Urea nitrogen [Mass/Vol] 12 mg/dL Normal 7-21 [facility] Comment on above: Order Comment: Speci men Type: BLOOD SPECIMEN Ordering Facility: [facility] Address: [address] [place] [address] Performed By: #### 2 4323-8 #### [facility] CLIA [id number] [address] [place] [address] Ferritin SerPl-mCncon 2023 Ferritin [Mass/Vol] 86.7 ng/mL Normal 14.7-205.1 [facility] Comment on above: Order Comment: Speci men Type: BLOOD SPECIMEN Ordering Facility: [facility] Address: [address] [place] [address] Performed By: #### 2 276-4, 9, 8 #### [facility] CLIA [id number] [address] [place] [address] [place] Folate SerPl-mCncon 09-05-19 Folate [Mass/Vol] 12.0 ng/mL Normal >4.7 [facility] Comment on above: Order Comment: Speci men Type: BLOOD SPECIMEN Ordering Facility: [facility] Address: [address] [place] [address] Performed By: #### 2 276-4, 9, 8 #### [facility] CLIA [id number] [address] [place] [address] [place] H. pylori IgG IA Qlon 2023 H. PYLORI IGG, QUAL Negative Normal Negative [facility] Comment on above: Order Comment: Laury bradshaw Type: BLOOD SPECIMEN Ordering Facility: [facility] Address: [address] [place] [address] Result Comment: Cash ot exclude H. pylori infection if the specimen collected 3-4 weeks after onset of symptoms. Performed By: #### 2 276-4, 2132-9, 2284-8 #### [facility] CLIA [id number] [address] [place] [address] [place] HbA1c (Bld)on 09-05-2023 Average glucose Estimated from glycated hemoglobin (Bld) [Mass/Vol] 108 mg/dL Normal [facility] Comment on above: Order Comment: Laury bradshaw Type: BLOOD SPECIMEN Ordering Facility: [facility] Address: [address] [place] [address] Result Comment: eAG: (Estimated average glucose) is a calculated value from HgbA1c and is tax compliance representative of the average blood glucose level in the last 2-3 month period. Performed By: #### 5 5454-3 #### [facility] CLIA [id number] [address] [place] [address] [place] HbA1c (Bld) [Mass fraction] 5.4 % Normal 4.3-5.6 [facility] Comment on above: Order Comment: Laury bradshaw Type: BLOOD SPECIMEN Ordering Facility: [facility] Address: [address] [place] [address] Result Comment: Amer ican Diabetes Association guidelines indicate that patients with HgbA1c in the range 5.7-6.4% are at increased risk for development of diabetes, and intervention by lifestyle modification may be beneficial. HgbA1c greater or equal to 6.5% is considered diagnostic of diabetes. Performed By: #### 5 5454-3 #### [facility] CLIA [id number] [address] [place] [address] [place] Iron and Iron binding capaci ty panelon 09-05-2023 Iron [Mass/Vol] 94 ug/dL Normal 41-186 [facility] Comment on above: Order Comment: Speci men Type: BLOOD SPECIMEN Ordering Facility: [facility] Address: [address] [place] [address] Performed By: #### 5 0190-8, 3016-3, 37551-4 #### [facility] CLIA [id number] [address] [place] [address] [place] #### 81460-6 #### [facility] CLIA [id number] [address] [place] [address] [place] [facility] CLIA [id number] [address] [place], [place] [address] Iron binding capacity [Mass/Vol] 310 ug/dL Normal 232-386 [facility] Comment on above: Order Comment: Speci men Type: BLOOD SPECIMEN Ordering Facility: [facility] Address: [address] [place] [address] Performed By: #### 5 0190-8, 6-3, 03778-9 #### [facility] CLIA [id number] [address] [place] [address] [place] #### 02680-5 #### [facility] CLIA [id number] [address] [place] [address] [place] [facility] CLIA [id number] [address] [place] [address] Iron/TIBC [Molar ratio] 30.3 % Normal 15.0-57.0 [facility] Comment on above: Order Comment: Speci men Type: BLOOD SPECIMEN Ordering Facility: [facility] Address: [address] [place] [address] Performed By: #### 5 0190-8, 3016-3, 37685-4 #### [facility] CLIA [id number] [address] [place] [address] [place] #### 61368-1 #### [facility] CLIA [id number] [address] [place] [address] [place] [facility] CLIA [id number] [address] [place] [address] Lipid 1996 panelon 4 Cholesterol [Mass/Vol] 179 mg/dL Normal <200 [facility] Comment on above: Order Comment: Laury men Type: BLOOD SPECIMEN Ordering Facility: [facility] Address: [address] [place] [address] Result Comment: <200 mg/dL, Desirable 200-239 mg/dL, Borderline high >239 mg/dL, High Performed By: #### 2 276-4, 2132-01, 2283-12 #### [facility] CLIA [id number] [address] [place] [address] [place] Cholesterol in HDL [Mass/Vol] 45 mg/dL Normal >39 [facility] Comment on above: Order Comment: Laury bradshaw Type: BLOOD SPECIMEN Ordering Facility: [facility] Address: [address] [place] [address] Result Comment: 40-5 9 mg/dL, Acceptable >59 mg/dL, High: Negative risk factor for coronary heart disease <40 mg/dL, Low: Positive risk factor for coronary heart disease Performed By: #### 2 276-4, 2132-01, 2283-12 #### [facility] CLIA [id number] [address] [place] [address] [place] Cholesterol in LDL [Mass/Vol] 119 mg/dL High <100 [facility] Comment on above: Order Comment: Laury bradshaw Type: BLOOD SPECIMEN Ordering Facility: [facility] Address: [address] [place] [address] Result Comment: <100 mg/dL, Optimal 100-129 mg/dL, Near optimal/above optimal 130-159 mg/dL, Borderline high 160-189 mg/dL, High >189 mg/dL, Very high Secondary prevention optimal LDL Cholesterol levels are recommended to be < 70 mg/dL Performed By: #### 2 276-4, 2132-01, 2283-12 #### [facility] CLIA [id number] [address] [place] [address] [place] Cholesterol in LDL/Cholesterol in HDL [Mass ratio] 2.64 {ratio} High <2.54 [facility] Comment on above: Order Comment: Laury bradshaw Type: BLOOD SPECIMEN Ordering Facility: [facility] Address: [address] [place] [address] Result Comment: Refe sandrace: 1. National Cholesterol Education Program ATP III Guideline At-A-Glance Quick Desk Reference: National Heart, Lung, and Blood Start. National Institutes of Health. 2001: NIH Publication No. 01-3305. 2. An International Atherosclerosis Society position paper: global recommendations for the management of dyslipidemia: executive summary, Atherosclerosis. 2014: 232(2):410-413. Performed By: #### 2 276-4, 2132-01, 2283-12 #### [facility] CLIA [id number] [address] [place] [address] [place] Cholesterol in VLDL [Mass/Vol] 15 mg/dL Normal <30 [facility] Comment on above: Order Comment: Laury bradshaw Type: BLOOD SPECIMEN Ordering Facility: [facility] Address: [address] [place] [address] Performed By: #### 2 276-4, 2132-01, 2283-12 #### [facility] CLIA [id number] [address] [place] [address] [place] Cholesterol non HDL [Mass/Vol] 134 mg/dL High <130 [facility] Comment on above: Order Comment: Laury bradshaw Type: BLOOD SPECIMEN Ordering Facility: [facility] Address: [address] [place] [address] Result Comment: <130 mg/dL, Optimal 130-159 mg/dL, Near optimal/above optimal 160-189 mg/dL, Borderline high 190-219 mg/dL, High >219 mg/dL, Very high Secondary prevention optimal non HDL Cholesterol levels are recommended to be <100 mg/dL Performed By: #### 2 276-4, 9, 2283-12 #### [facility] CLIA [id number] [address] [place] [address] [place] Cholesterol.total/Cho lesterol in HDL [Mass ratio] 3.98 {ratio} Normal <5.10 [facility] Comment on above: Order Comment: Speci men Type: BLOOD SPECIMEN Ordering Facility: [facility] Address: [address] [place] [address] Performed By: #### 2 276-4, 9, 2283-12 #### [facility] CLIA [id number] [address] [place] [address] [place] FASTING TIME 12 hrs Normal [facility] Comment on above: Order Comment: Speci men Type: BLOOD SPECIMEN Ordering Facility: [facility] Address: [address] [place] [address] Performed By: #### 2 276-4, 2132-01, 2283-12 #### [facility] CLIA [id number] [address] [place] [address] [place] Triglyceride [Mass/Vol] 74 mg/dL Normal <150 [facility] Comment on above: Order Comment: Speci men Type: BLOOD SPECIMEN Ordering Facility: [facility] Address: [address] [place] [address] Result Comment: <150 mg/dL, Normal 150-199 mg/dL, Borderline high 200-499 mg/dL, High >499 mg/dL, Very high Performed By: #### 2 276-4, 9, 2283-12 #### [facility] CLIA [id number] [address] [place] [address] [place] NT-proBNP [facility] 09-04 Natriuretic peptide.B prohormone N-Terminal [Mass/Vol] 48 pg/mL Normal <125 [facility] Comment on above: Order Comment: Speci men Type: BLOOD SPECIMEN Ordering Facility: [facility] Address: [address] [place] [address] Performed By: #### 2 276-4, 9, 8 #### [facility] CLIA [id number] [address] [place] [address] [place] TSH SerPl-aCncon 09-05-2023 TSH Qn 6.440 m[IU]/L High 0.270-4.200 [facility] Comment on above: Order Comment: Laury bradshaw Type: BLOOD SPECIMEN Ordering Facility: [facility] Address: [address] [place] [address] Result Comment: If t he patient is , TSH reference range varies by gestational period: First Trimester (weeks 9-12): 0.180-2.990 mIU/L Second Trimester: 0.110-3.980 mIU/L Third Trimester: 0.480-4.710 mIU/L Seth Crews et al. A Practical Approach for the Verifications and Determination of Site- and Trimester-Specific Reference Intervals for Thyroid Function tests in . Thyroid, 2019:29:3:412-420. Zhang E, et al. 2017 Guidelines of the [place] Thyroid Association for the Diagnosis and Management of Thyroid Disease during and the . Thyroid, 2017:27:3:315-389. Performed By: #### 2 276-4, 9, 8 #### [facility] CLIA [id number] [address] [place], [place] [id number] [place] VITAMIN B1 (THIAMINE), WHOLE BLOODon 09-05-2023 Thiamine (Bld) [Moles/Vol] 179.2 nmol/L Normal 84.3-213.3 [facility] Comment on above: Order Comment: Laury bradshaw Type: BLOOD SPECIMEN Ordering Facility: [facility] Address: [address] [place] [address] Result Comment: This assay measures the concentration of thiamine diphosphate (TDP), the primary active form of vitamin B1. Approximately 90 percent of vitamin B1 present in whole blood is TDP. Thiamine and thiamine monophosphate, which comprise the remaining 10 percent, are not measured. This test was developed and its performance characteristics determined by [facility] [place] [facility] Start ([email or web address]). It has not been cleared or approved by the FDA. -[facility] is regulated under CLIA as qualified to perform high-complexity testing. This test is used for clinical purposes. It should not be regarded as investigational or for research. Performed By: #### B 1WB #### [facility] CLIA [id number] [address] [place] [address] [place] Vit B12 SerPl-ncon 09-04- 024 Cobalamin (Vitamin B12) [Mass/Vol] 612 pg/mL Normal 232-1245 [facility] Comment on above: Order Comment: Speci men Type: BLOOD SPECIMEN Ordering Facility: [facility] Address: [address] [place] [address] Performed By: #### 2 276-4, 2132-9, 2284-8 #### [facility] CLIA [id number] [address] [place] [address] [place] Glucose - FINGER STICKon Glucose [Mass/Vol] 5.4 mg/dL [facility] Other PAP ACOG PANEL 2: 30 to 65on 06-10-2022 . . Normal [facility] Comment on above: Result Comment: Perf ormed at: WB Performed By: #### 4 [id number] #### [facility] [address] [place] [address] Dr. Sachin Coates Age Gdln ACOG Testing 30-65 Normal [facility] Comment on above: Performed By: #### 4 [id number] #### [facility] [address] [place] [address] Dr. Sachin Coates DIAGNOSIS: Comment Normal [facility] Comment on above: Result Comment: NEGA TIVE FOR INTRAEPITHELIAL LESION OR MALIGNANCY. CELLULAR CHANGES ASSOCIATED WITH INFLAMMATION ARE PRESENT. THIS SPECIMEN WAS RESCREENED PART OF OUR EXECUTIVE SALES ASSISTANT PROGRAM. Performed at: WB Performed By: #### 4 [id number] #### [facility] [address] [place] [address] Dr. Sachin Coates HPV Aptima Negative Normal Negative [facility] Comment on above: Result Comment: This nucleic acid amplification test detects fourteen high-risk HPV types (16,18,31,33,35,39,45,51,52,56,58,59,66,68) without differentiation. Performed at: =G Performed By: #### 4 [id number] #### [facility] [address] [address] [address] Sachin Coates HPV Genotype Reflex Comment Normal [facility] Comment on above: Result Comment: Crit eria not met, HPV Genotype not performed. Performed at: WB Performed By: #### 4 [id number] #### [facility] [address] [place] [address] Dr. Sachin Coates Methodology: Comment Normal [facility] Comment on above: Result Comment: This liquid based ThinPrep(R) pap test was screened with the use of an image guided system. Performed at: WB Performed By: #### 4 [id number] #### [facility] [address] [place] [address] Dr. Sachin Coates Note: Comment Normal [facility] Comment on above: Result Comment: The Pap smear is a screening test designed to aid in the detection of premalignant and malignant conditions of the uterine cervix. It is not a diagnostic procedure and should not be used as the sole means of detecting cervical cancer. Both false-positive and false-negative reports do occur. . Performed at: WB Performed By: #### 4 [id number] #### [facility] [address] [place] [address] Dr. Sachin oCates Performed by: Comment Normal [facility] Comment on above: Result Comment: Peyton Beverly, Food Specialist (ASCP) Performed at: WB Performed By: #### 4 [id number] #### [facility] [address] [place] [address] Dr. Sachin Coates QC reviewed by: Comment Normal [facility] Comment on above: Result Comment: Cielo Cochran, Supervisory Food Specialist (ASCP) Performed at: WB Performed By: #### 4 [id number] #### [facility] [address] [address] [address] Sachin Coates Specimen adequacy: Comment Normal [facility] Comment on above: Result Comment: Sati sfactory for evaluation. Endocervical and/or squamous metaplastic cells (endocervical component) are present. Performed at: WB Performed By: #### 4 [id number] #### [facility] [address] [address] [address] Sachin Coates COVID-19 SOFIAOrdered By: Dario To on 12-02-2021 SARS-CoV+SARS-CoV-2 (COVID-19) Ag IA.rapid Ql (Resp) Negative Negative [facility] Comment on above: This is a duplicate Zuleyma SARS Antigen (PAMELLA) result to be used for statistical tracking purpose only. No Panel InformationOrdered By: Ck To on 12-02-2021 SARS Antigen (LFIA) [facility] Chart Updateon 08-08-2020 Chart Update Chart [...] Aug 08 2020 10:18AM EST (Author) Normal IO Turbine PLACING JUDGE - Procedure Visiton 0 07-10-2020 PLACING JUDGE - Procedure Visit Chief Complaint IUI Active [...] Touchworks ESTRADIOLon 07-08-2020 ESTRADIOL 186 pg/mL Normal [facility] Comment on above: Result Comment: Estr adiol measurement is performed using the Emair Access Sensitive Estradiol Immunoassay. Estradiol testing is performed using a different test methodology at [facility] than other [facility]. Direct result comparison should only be made within the same method. REF VALUES EARLY FOLLICULAR 22-115 MID FOLLICULAR 25-115 OVULATORY PEAK 32-517 MID LUTEAL 37-246 POSTMENOPAUSE <15- 25 MALE <15- 32 Performed By: #### G [facility] #### [facility] [address] [place] [address] Estradiol, Serumon E2 [Mass/Vol] 186 pg/mL -OBGYN-[facility] an 310 IVF Work Phone: Comment on above: Estradiol measuremen t is performed using the Shruthi Catheter Connections Access Sensitive Estradiol Immunoassay. Estradiol testing is performed using a different test methodology at [facility] than other [facility]. Direct result comparison should only be made within the same method.REF VALUESEARLY FOLLICULAR 22-115MID FOLLICULAR 25-115OVULATORY PEAK 32-517MID LUTEAL 37-246POSTMENOPAUSE <15- 25MALE <15- 32 LUTEINIZING HORMONEon 2020 LUTEINIZING HORMONE 9.5 IU/L Normal [facility] Comment on above: Result Comment: Lute inizing Hormone [LH] is performed using the Shruthi Freedom Access Immunoassay. LH testing is performed using a different test methodology at [facility] than other [facility]. Direct result comparison should only be made within the same method. REF VALUES FOLLICULAR PHASE 1.5-10.0 MID-CYCLE 13.0-72.0 LUTEAL PHASE 0.5-13.0 MENOPAUSE 15.0-65.0 PREPUBERTY 0- 3.0 CHILDREN 0- 6.0 ADULT MALE 1.0- 9.0 Performed By: #### G [facility] #### [facility] [address] [place] [address] Luteinizing Hormone, Serumon 07-08-2020 Lutropin Qn 9.5 {IU/L} UR-IVZPP-Lsjk an 310 IVF Work Phone: Comment on above: Luteinizing Hormone [LH] is performed using the Shruthi Catheter Connections Access Immunoassay. LH testing is performed using a different test methodology at [facility] than other [facility]. Direct result comparison should only be made within the same method.REF VALUESFOLLICULAR PHASE 1.5-10.0MID-CYCLE 13.0-72.0LUTEAL PHASE 0.5-13.0MENOPAUSE 15.0-65.0PREPUBERTY 0- 3.0CHILDREN 0- 6.0ADULT MALE 1.0- 9.0 TYPE + SCREENon 07-06-2020 ABO TYPE A Normal [facility] Comment on above: Performed By: #### T +S #### [facility] [address] [place] [address] RH TYPE Positive Normal [facility] Comment on above: Performed By: #### T +S #### [facility] [address] [place] [address] ESTRADIOLon 07-05-2020 ESTRADIOL 58 pg/mL Normal [facility] Comment on above: Result Comment: Estr adiol measurement is performed using the Shruthi Catheter Connections Access Sensitive Estradiol Immunoassay. Estradiol testing is performed using a different test methodology at [facility] than other [facility]. Direct result comparison should only be made within the same method. REF VALUES EARLY FOLLICULAR 22-115 MID FOLLICULAR 25-115 OVULATORY PEAK 32-517 MID LUTEAL 37-246 POSTMENOPAUSE <15- 25 MALE <15- 32 Performed By: #### G [facility] #### [facility] [address] [place] [address] Estradiol, Serumon 1 E2 [Mass/Vol] 58 pg/mL MG-OBGYN-Ri sm an 310 IVF Work Phone: Comment on above: Estradiol measuremen t is performed using the Shruthi Catheter Connections Access Sensitive Estradiol Immunoassay. Estradiol testing is performed using a different test methodology at [facility] than other [facility]. Direct result comparison should only be made within the same method.REF VALUESEARLY FOLLICULAR 22-115MID FOLLICULAR 25-115OVULATORY PEAK 32-517MID LUTEAL 37-246POSTMENOPAUSE <15- 25MALE <15- 32 Hematologyon 07-05-2020 ABO group Nom (Bld) A MG-BEEHIVE KILN SUPERVISOR-Rism an 310 IVF Work Phone: Blood group antibody screen Ql Negative KV-LZNFJ-Vjpw an 310 IVF Work Phone: Rh immune globulin screen (Bld) [Interp] Positive MG-OBGYN-R ism an 310 IVF Work Phone: LUTEINIZING HORMONEon 2020 LUTEINIZING HORMONE 9.2 IU/L Normal [facility] Comment on above: Result Comment: Lute inizing Hormone [LH] is performed using the Shruthi Catheter Connections Access Immunoassay. LH testing is performed using a different test methodology at [facility] than other [facility]. Direct result comparison should only be made within the same method. REF VALUES FOLLICULAR PHASE 1.5-10.0 MID-CYCLE 13.0-72.0 LUTEAL PHASE 0.5-13.0 MENOPAUSE 15.0-65.0 PREPUBERTY 0- 3.0 CHILDREN 0- 6.0 ADULT MALE 1.0- 9.0 Performed By: #### L #### [facility] [address] [place] [address] Luteinizing Hormone, Serumon 07-05-2020 Lutropin Qn 9.2 {IU/L} GB-DRSGF-Kuxb an 310 IVF Work Phone: Comment on above: Luteinizing Hormone [LH] is performed using the Shruthi J Carlos Access Immunoassay. LH testing is performed using a different test methodology at [facility] than other [facility]. Direct result comparison should only be made within the same method.REF VALUESFOLLICULAR PHASE 1.5-10.0MID-CYCLE 13.0-72.0LUTEAL PHASE 0.5-13.0MENOPAUSE 15.0-65.0PREPUBERTY 0- 3.0CHILDREN 0- 6.0ADULT MALE 1.0- 9.0 PLACING JUDGE - Office Visiton 02-0 PLACING JUDGE - Office Visit Diagnoses/Problems Assessed Morbid obesity [...] MD [facility] [phone] [place] [phone] [place] 1 Amended By: Bayron Mccarty; Jun [...] MD [facility] [phone] Julien [phone] [place] Appointment Duration:. 25 minutes; greater than half of the time was spent on counseling. 1 Amended By: Bayron Mccarty; Jun 19 2020 10:16 AM ESTChief Complaint follow up History of Present Neyoboy1106/19/2020 9:30AM JALEESA ARRIETA , 30 year is contacted for an (audio-visual, or audio only) Telehealth visit. Today's visit was provided through telemedicine conferencing: Using [employer] platform. Consent: The concept of telemedicine? has [...] is a telehealth appointment Results/Data HCG, Beta Tqyjwzlsbyxq92Oxy2934 11:58AMBayron Mccarty Test NameResultFlagReference HCG, Beta Quantitative<2 [...] performed using a different test methodology at [facility] than other [facility]. Direct result comparison should only be made within the same method. REF VALUES NON FEMALE <5 MALES <5 Progesterone, Hbxck00Oom4109 11:58AMBayron Mccarty Test NameResultFlagReference Progesterone, Serum10.5 ng/mL REF VALUES MALE <0.3- 1.2 FOLLICULAR PHASE <0.3- 1.4 LUTEAL PHASE 3.3-25.6 MID-LUTEAL PHASE 4.4-28.0 POSTMENOPAUSAL <0.3- 0.7 FEMALES: 1ST TRIMESTER 11.2- 90.0 2ND TRIMESTER 25.6- 89.4 3RD TRIMESTER 48.4-422.5 . Patients receiving DHEA-S supplements may show false elevation of progesterone for results near 1.0 ng/mL. Contact laboratory at [phone] if alternative testing is needed. CMV IgG and IgM If31Qhd0474 11:58AMFindley, Bayron Test NameResultFlagReference CMV IgG AntibodyREACTIVEASee Below Reference Range: NONREACTIVE CMV IGM [id number] 11:58AMBibianaBayron Test NameResultFlagReference CMV IGM AB<30.00 AU/mL [...] testing in two or more weeks. Xray Trqbkqnydqwphlcfuer09Nvt 2020 12:00AMBayron Mccarty [Mar 28, 2020 9:43AM Bayron Mccarty] Reason: Unspecified for Xray Hysterosalpingogram Test NameResultFlagReference Xray Hysterosalpingogram Please click on the link to view the study images Anti Mullerian [id number] 12:03PMBayron Mccarty Test NameResultFlagReference Anti Mullerian Hormone6.36 ng/mL For assays employing antibodies, the possibility exists for interference by heterophile antibodies in the samples.1 1.Oswald Crews. Interferences in Immunoassays - still a threat. Clin. Chem. 2000; 46: 2767-6127. This test was developed and its performance characteristics determined by [employer] [facility]. It has not been cleared or approved by the Food and Drug Administration. Reference Range: Females 26 - 30y: 1.03 - 11.10 Median 4.20 AMH concentrations of >= 1.06 ng/mL is correlated with a better response to ovarian stimulation, produced more retrievable oocytes and higher odds of live according to Carey et al. Fertility and Sterility. 2010: 94:0247-4065. The current AMH test method correlates with [...] exclude an AMH-secreting ovarian tumor. Rubella IgG [id number] 12:03PMBayron Mccarty Test NameResultFlagReference Rubella IgG AntibodyPOSITIVE [...] TSH WITH REFLEX TO FREE T4 IF [id number] 12:03PMBayron Mccarty Test NameResultFlagReference Thyroid Stimulating Hormone, Serum2.17 mIU/LSee Below Reference Range: 0.44 - 3.98 TSH testing is performed using different testing methodology at [facility] than at other [facility]. Direct result comparisons should only be made within the same method. Varicella Zoster IgG Rjjbmkyr66Ojs6499 12:03PMBayron Mccarty Test NameResultFlagReference Varicella Zoster IgG [...] altered results in serological assays. Vitamin D 25-Htbwbal65Fxl0077 12:03PMBayron Mccarty Test NameResultFlagReference Vitamin D 25-Hydroxy, Level17 ng/mLA . DEFICIENCY: < 20 NG/ML INSUFFICIENCY: 20-29 NG/ML SUFFICIENCY: 30-100 NG/ML THIS ASSAY ACCURATELY QUANTIFIES THE SUM OF VITAMIN D3, 25-HYDROXY AND VIT D2,25-HYDROXY. { 17-Hydroxyprogesterone, Tshzt55Khr0534 12:03Bayron Silva Test NameResultFlagReference 17-Hydroxyprogesterone, Serum33 ng/dL [...] Endocrinol Metab. 1991;73:674-686; J Clin Endocrinol Metab. 1989;69;4891-1630; J Clin Endocrinol Metab. 1994;78:226-270. Pediatr Res 1988;23:525-529. MedLinePlus (accessed 10/25/13). This test was developed and its analytical performance characteristics have been determined by [facility] [place], [place]. It has not been cleared or approved by the U.S. Food and Drug Administration. This assay has been validated pursuant to the CLIA regulations and is used for clinical purposes. DHEA Sulfate, Dmthw34Cds4262 12:03Bayron Silva Test NameResultFlagReference DHEA Sulfate, Zdaof383 ug/dL65 - 395 MATURITY-BASED REFERENCE RANGES: PUBERTAL [...] laboratory for further information. Testosterone Free + Dqlvk47Xep4466 12:03PMBayron Mccarty Test NameResultFlagReference Testosterone, Total63 ng/dLH2-45 For additional information, please refer to http://education.Pathfire/faq/ TotalTestosteroneLCMSMSF AQ165 (This link is being provided for informational/ educational purposes only.) This test was developed and its analytical performance characteristics have been determined by [facility] [place], [place]. It has not been cleared or approved by the U.S. Food and Drug Administration. This assay has been validated pursuant to the CLIA regulations and is used for clinical purposes. Testosterone, Free Serum8.8 pg/mLH0.1-6.4 This test was developed and its analytical performance characteristics have been determined by [facility] [place] [place]. It has not been cleared or approved by the U.S. Food and Drug Administration. This assay has been validated pursuant to the CLIA regulations and is used for clinical purposes. Hemoglobin [id number] 12:03PMBayron Mccarty Test NameResultFlagReference Hemoglobin A1C, Level5.5 % Diagnosis of Diabetes-Adults Non-Diabetic: < or = 5.6% Increased risk for developing diabetes: 5.7-6.4% Diagnostic of diabetes: > or = 6.5% . Monitoring of Diabetes Age (y) Therapeutic Goal (%) Adults: >18 <7.0 Pediatrics: 13-18 <7.5 7-12 <8.0 0- 6 7.5-8.5 [place] [employer]. Diabetes Care 33(S1), May 2009. Estimated Average Wuqvzyu057 MG/DL GC + Chlamydia By Amplified Yggpnidzy15Les5503 12:03PMBayron Mccarty Test NameResultFlagReference N.GONORRHEA,AMPLIFIEDNEG ATIVENegative SOURCE: Urine Chlamydia Trach, AmplifiedNEGATIVENegativ e Hepatitis B Surface Syftpxf77Oun0806 12:03PMBayron Mccarty Test NameResultFlagReference Hep.B Surface AgNONREACTIVESee Below Reference Range: NONREACTIVE Biotin interference may cause falsely decreased results. Patients taking a Biotin dose of up to 5 mg/day should refrain from taking Biotin for 24 hours before sample collection. Providers may contact their local laboratory for further information. Hepatitis C Antibody [id number] 12:03PMBayron Mccarty Test NameResultFlagReference Hepatitis C-AntibodyNONREACTIVESee Below Reference Range: NONREACTIVE Results from patients taking biotin supplements or receiving high-dose biotin therapy should be interpreted with caution due to possible interference with this test. Providers may contact their local laboratory for further information. HIV 1/2 ANTIGEN/ANTIBODY SCREEN WITH REFLEX TO [id number] 12:03PMBayron Mccarty Test NameResultFlagReference HIV 1/2 AG/AB SCREENNONREACTIVESee Below Reference Range: NONREACTIVE HIV Ag/Ab screen is performed using the Siemens AloompallTopix HIV Ag/Ab Combo assay which detects the presence of HIV p24 antigen as well as antibodies to HIV-1 (Group M and O) and HIV-2. SYPHILIS SCREENING WITH [id number] 12:03Bayron Silva Test NameResultFlagReference SYPHILIS TOTAL ANTIBODYNONREACTIVESee Below SOURCE: Reference Range: NONREACTIVE No significant level of Treponema pallidum antibody detected. Repeat testing in 2 to 4 weeks may be considered if early infection or incubating syphilis infection is suspected. Signatures Electronically signed by : Bayron Mccarty MD; Jun 19 2020 10:16AM EST (Author) Normal [employer] CMV IGM ABon 04-20-2020 CMV IGM AB <30.00 Normal [facility] Comment on above: Result Comment: [...] weeks. Performed By: #### C MVM2 #### [facility] [address] [place] [address] CMV IGG AND IGM ABon 020 CMV IGG AB REACTIVE Abnormal NONREACTIVE [facility] Comment on above: Performed By: #### C MV2 #### [facility] [address] [place] [address] PROGESTERONEon 04-16-2020 PROGESTERONE 10.5 ng/mL Normal [facility] Comment on above: Result Comment: REF VALUES MALE <0.3- 1.2 FOLLICULAR PHASE <0.3- 1.4 LUTEAL PHASE 3.3-25.6 MID-LUTEAL PHASE 4.4-28.0 POSTMENOPAUSAL <0.3- 0.7 FEMALES: 1ST TRIMESTER 11.2- 90.0 2ND TRIMESTER 25.6- 89.4 3RD TRIMESTER 48.4-422.5 . Patients receiving DHEA-S supplements may show false elevation of progesterone for results near 1.0 ng/mL. Contact laboratory at [phone] if alternative testing is needed. Performed By: #### P BOBBY #### [facility] [address] [place] [address] HCG,BETA-QUANTITATIVEon HCG,BETA-QUANTITATIVE <2 Normal [facility] Comment on above: Result Comment: [...] performed using a different test methodology at [facility] than other system hospitals. Direct result comparison should only be made within the same method. REF VALUES NON FEMALE <5 MALES <5 Performed By: #### H QU #### [address] [id number] PLACING JUDGE - Office Visiton PLACING JUDGE - Office Visit Chief Complaint An interactive [...] test results. Roby JEWELL. History of Present Yuyqvhn9604/14/2020 9:30AM JALEESA ARRIETA , 30 year is contacted for an (audio-visual, or audio only) Telehealth visit. Today's visit was provided through telemedicine conferencing: Using [employer] platform. Consent: The concept of telemedicine? has [...] 25 MCG (1000 UT) Oral Tablet; Therapy: [id number] to Recorded Dispense: 0 Days ; #: Sufficient Tablet; Refill: 0; KEVIN = N; Record; Last Updated By: Breezy Jasso; 2020 1:15:24 PM Vitals Vital Signs Recorded: 40Gsq7482 09:08AM Height5 ft 6 in Agavqn962 lb BMI Armjniexri62.81 BSA Calculated2.34 ULE84Maa8594 Gravida1 Para0 Pain Scale0 Physical Exam This is a telehealth appointment Results/Data Anti Mullerian Rubwguf30Lkg2772 12:03PMBayron Mccarty Test NameResultFlagReference Anti Mullerian Hormone6.36 ng/mL For assays employing antibodies, the possibility exists for interference by heterophile antibodies in the samples.1 1.Oswald Crews. Interferences in Immunoassays - still a threat. Clin. Chem. 2000; 46: 8555-3804. This test was developed and its performance characteristics determined by [employer] [facility]. It has not been cleared or approved by the Food and Drug Administration. Reference Range: Females 26 - 30y: 1.03 - 11.10 Median 4.20 AMH concentrations of >= 1.06 ng/mL is correlated with a better response to ovarian stimulation, produced more retrievable oocytes and higher odds of live according to Gleicher et al. Fertility and Sterility. 2010: 94:3537-6049. The current AMH test method correlates with [...] exclude an AMH-secreting ovarian tumor. Anti Mullerian Sicviby44Dzl9901 12:03PMBayron Mccarty Test NameResultFlagReference Anti Mullerian Hormone6.36 ng/mL For assays employing antibodies, the possibility exists for interference by heterophile antibodies in the samples.1 1.Oswald Brunner Interferences in Immunoassays - still a threat. Clin. Chem. 2000; 46: 2080-7292. This test was developed and its performance characteristics determined by [facility]. It has not been cleared or approved by the Food and Drug Administration. Reference Range: Females 26 - 30y: 1.03 - 11.10 Median 4.20 AMH concentrations of >= 1.06 ng/mL is correlated with a better response to ovarian stimulation, produced more retrievable oocytes and higher odds of live according to Gleicher et al. Fertility and Sterility. 2010: 94:1709-8388. The current AMH test method correlates with [...] exclude an AMH-secreting ovarian tumor. Rubella IgG Zkzvuylq35Nqj9163 12:03PMBayron Mccarty Test NameResultFlagReference Rubella IgG AntibodyPOSITIVE [...] TSH WITH REFLEX TO FREE T4 IF [id number] 12:03PMBayron Mccarty Test NameResultFlagReference Thyroid Stimulating Hormone, Serum2.17 mIU/LSee Below Reference Range: 0.44 - 3.98 TSH testing is performed using different testing methodology at [facility] than at other [facility]. Direct result comparisons should only be made within the same method. Varicella Zoster IgG Hmwmxynh77Qxe0996 12:03PMBayron Mccarty Test NameResultFlagReference Varicella Zoster IgG [...] altered results in serological assays. Vitamin D 25-Wdhbnet41Rmg0566 12:03PMBayron Mccarty Test NameResultFlagReference Vitamin D 25-Hydroxy, Level17 ng/mLA . DEFICIENCY: < 20 NG/ML INSUFFICIENCY: 20-29 NG/ML SUFFICIENCY: 30-100 NG/ML THIS ASSAY ACCURATELY QUANTIFIES THE SUM OF VITAMIN D3, 25-HYDROXY AND VIT D2,25-HYDROXY. { 17-Hydroxyprogesterone, Izltz04Mtz9536 12:03PMBayron Mccarty Test NameResultFlagReference 17-Hydroxyprogesterone, Serum33 ng/dL [...] Endocrinol Metab. 1991;73:674-686; J Clin Endocrinol Metab. 1989;69;0128-2401; J Clin Endocrinol Metab. 1994;78:226-270. Pediatr Res 1988;23:525-529. MedLinePlus (accessed 10/25/13). This test was developed and its analytical performance characteristics have been determined by [facility] [place], [place]. It has not been cleared or approved by the U.S. Food and Drug Administration. This assay has been validated pursuant to the CLIA regulations and is used for clinical purposes. DHEA Sulfate, Qpqkv83Pve8482 12:03PMBayron Mccarty Test NameResultFlagReference DHEA Sulfate, Uixnw483 ug/dL65 - 395 MATURITY-BASED REFERENCE RANGES: PUBERTAL [...] laboratory for further information. Testosterone Free + Miapq04Dpt1812 12:03PMBayron Mccarty Test NameResultFlagReference Testosterone, Total63 ng/dLH2-45 For additional information, please refer to http://education.Pathfire/faq/ TotalTestosteroneLCMSMSF AQ165 (This link is being provided for informational/ educational purposes only.) This test was developed and its analytical performance characteristics have been determined by [facility] [place] [place]. It has not been cleared or approved by the U.S. Food and Drug Administration. This assay has been validated pursuant to the CLIA regulations and is used for clinical purposes. Testosterone, Free Serum8.8 pg/mLH0.1-6.4 This test was developed and its analytical performance characteristics have been determined by [facility] [place] [place]. It has not been cleared or approved by the U.S. Food and Drug Administration. This assay has been validated pursuant to the CLIA regulations and is used for clinical purposes. Hemoglobin S9O56Swl1780 12:03PMBayron Mccarty Test NameResultFlagReference Hemoglobin A1C, Level5.5 % Diagnosis of Diabetes-Adults Non-Diabetic: < or = 5.6% Increased risk for developing diabetes: 5.7-6.4% Diagnostic of diabetes: > or = 6.5% . Monitoring of Diabetes Age (y) Therapeutic Goal (%) Adults: >18 <7.0 Pediatrics: 13-18 <7.5 7-12 <8.0 0- 6 7.5-8.5 [employer]. Diabetes Care 33(S1), May 2009. Estimated Average Dwexmdd761 MG/DL GC + Chlamydia By Amplified Rdxjahfiy48Khz0905 12:03PMBayron Mccarty Test NameResultFlagReference N.GONORRHEA,AMPLIFIEDNEG ATIVENegative SOURCE: Urine Chlamydia Trach, AmplifiedNEGATIVENegativ e Hepatitis B Surface Rubqbel26Ynm6135 12:03Bayron Silva Test NameResultFlagReference Hep.B Surface AgNONREACTIVESee Below Reference Range: NONREACTIVE Biotin interference may cause falsely decreased results. Patients taking a Biotin dose of up to 5 mg/day should refrain from taking Biotin for 24 hours before sample collection. Providers may contact their local laboratory for further information. Hepatitis C Antibody Fvts00Uyl3391 12:03PMBayron Mccarty Test NameResultFlagReference Hepatitis C-AntibodyNONREACTIVESee Below Reference Range: NONREACTIVE Results from patients taking biotin supplements or receiving high-dose biotin therapy should be interpreted with caution due to possible interference with this test. Providers may contact their local laboratory for further information. HIV 1/2 ANTIGEN/ANTIBODY SCREEN WITH REFLEX TO [id number] 12:03PMBerryBayron mccarthy Test NameResultFlagReference HIV 1/2 AG/AB SCREENNONREACTIVESee Below Reference Range: NONREACTIVE HIV Ag/Ab screen is performed using the Siemens AtellTopix HIV Ag/Ab Combo assay which detects the presence of HIV p24 antigen as well as antibodies to HIV-1 (Group M and O) and HIV-2. SYPHILIS SCREENING WITH FLYTRJ60Lxv8025 12:03PMBibiana Bayron Test NameResultFlagReference SYPHILIS TOTAL ANTIBODYNONREACTIVESee Below SOURCE: Reference Range: NONREACTIVE No significant level of Treponema pallidum antibody detected. Repeat testing in 2 to 4 weeks may be considered if early infection or incubating syphilis infection is suspected. Diagnoses/Problems Irregular menses (626.4) (N92.6) Morbid obesity (278.01) (E66.01) Orders HCG, Beta Quantitative; Status:Active; Requested for:21Coe6521; Perform:Lab Services - Lab To Draw (Blood Test); Due:13Jul2020;Ordered; For:Irregular menses; Ordered By:Bayron Mccarty; Progesterone, Serum; Status:Active; Requested for:86Hdr0784; Perform:Lab Services - Lab To Draw (Blood [...] MD [facility] [phone] [place] [phone] [place] Appointment Duration:. 25 minutes; greater than half [...] MD [facility] [phone] [place] [phone] [place] 1 Amended By: Bayron Mccarty; Apr 14 2020 4:50 PM ESTSignatures Electronically signed by : Bayron Mccarty MD; Apr 14 2020 4:51PM EST (Author) Normal [employer] PLACING JUDGE - Procedure Visiton 1 05-28-2019 PLACING JUDGE - Procedure Visit Chief Complaint pt presents [...] 1 CAPSULE EVERY 12 HOURS DAILY; Therapy: 23Ayd5856 to (Evaluate:75Omz3661) Requested for: 23Ted1413; Last Rx:[id number] Ordered Rx By: Bayron Mccarty; Dispense: 5 Days ; #:10 Capsule; Refill: 0;For: Fertility testing; KEVIN = N; Verified Transmission to [place] [address]; Msg to Pharmacy: start medication the night before her procedure; Last Updated By: Elham Stand InTess; 01/24/2020 12:08:27 PM Vitamin D 25 MCG (1000 UT) Oral Tablet; Therapy: [id number] to Recorded Dispense: 0 Days ; #: [...] Signatures Electronically signed by : Kelle Vaz, FRED-BUSINESS INTELLIGENCE ARCHITECT; Mar 28 2020 4:10PM EST (Author) [facility] PLACING JUDGE - Office Visiton 11-0 PLACING JUDGE - Office Visit Chief Complaint The patient [...] is considering single parent procreation. Her usual Manager Pet with whom she would plan to follow with for care in a future is Dr. Ng in [place]. Active Problems Female infertility (628.9) (N97.9) Fertility [...] 1 CAPSULE EVERY 12 HOURS DAILY; Therapy: 55Utd8599 to (Evaluate:38Ssx7075) Requested for: 78Sec2848; Last Rx:[id number] Ordered Rx By: Bayron Mccarty; Dispense: 5 Days ; #:10 Capsule; Refill: 0; For: Fertility testing; KEVIN = N; Verified Transmission to [place] [address]; Msg to Pharmacy: start medication the night before her procedure; Last Updated By: SystemShijiebang; 01/24/2020 12:08:27 PM Vitamin D 25 MCG (1000 UT) Oral Tablet; Therapy: 01Mho7692 to Recorded Dispense: 0 Days ; #: Sufficient Tablet; Refill: 0; KEVIN = N; Record; Last Updated By: Breezy Jasso; 2020 1:15:24 PM Vitals Vital Signs Recorded: 13Mar2020 01:08PM Heart Rate96 Mtbrfovo714 Lmtsuzevq80 Height5 ft 6 in Ookdxt656 lb BMI Itagfizbno17.91 BSA Calculated2.39 Tobacco Useb) No Fall Screeninga) No falls within the last year [id number] Gravida1 Para0 Pain Scale0 Diagnoses/Problems Morbid obesity [...] consultation of which greater than 50% was gwmy-ht-emie counseling. Weight loss prior to conception is [...] MD; Jun 12 2020 4:50PM EST [facility] ANTI MULLERIAN HORMONEon ANTI MULLERIAN HORMONE 6.36 ng/mL Normal [facility] Comment on above: Result Comment: For assays employing antibodies, the possibility exists for interference by heterophile antibodies in the samples.1 1.Oswald Crews. Interferences in Immunoassays - still a threat. Clin. Chem. 2000; 46: 4528-5564. This test was developed and its performance characteristics determined by [employer]. It has not been cleared or approved by the Food and Drug Administration. Reference Range: Females 26 - 30y: 1.03 - 11.10 Median 4.20 AMH concentrations of >= 1.06 ng/mL is correlated with a better response to ovarian stimulation, produced more retrievable oocytes and higher odds of live according to Carey et al. Fertility and Sterility. 2010: 94:1376-7544. The current AMH test method correlates with [...] ovarian tumor. Performed By: #### A #### [facility] [address] [place] [address] [id number] 17-HYDROXYPROGESTERONEon 17-HYDROXYPROGESTERON E 33 ng/dL Normal [facility] Comment on above: Result [...] Endocrinol Metab. 1991;73:674-686; J Clin Endocrinol Metab. 1989;69;8455-0587; J Clin Endocrinol Metab. 1994;78:226-270. Pediatr Res 1988;23:525-529. MedLinePlus (accessed 10/25/13). This test was developed and its analytical performance characteristics have been determined by [facility] [place]. It has not been cleared or approved by the U.S. Food and Drug Administration. This assay has been validated pursuant to the CLIA regulations and is used for clinical purposes. Performed By: #### 1 7[facility] #### [facility] [address] [place] [address] TESTOST,FREE AND TOTALon TESTOSTERONE TOT.LC/MS/MS 63 ng/dL High 2-45 [facility] Comment on above: Result Comment: For additional information, please refer to http://education.[employer]/faq/ YawatGypbhqqawbraBUAQGSJUO474 (This link is being provided for informational/ educational purposes only.) This test was developed and its analytical performance characteristics have been determined by [facility] [place]. It has not been cleared or approved by the U.S. Food and Drug Administration. This assay has been validated pursuant to the CLIA regulations and is used for clinical purposes. Performed By: #### G [facility] #### [facility] [address] [place] [address] TESTOSTERONE,FREE 8.8 pg/mL High 0.1-6.4 [facility] Comment on above: Result Comment: This test was developed and its analytical performance characteristics have been determined by [facility] [place]. It has not been cleared or approved by the U.S. Food and Drug Administration. This assay has been validated pursuant to the CLIA regulations and is used for clinical purposes. Performed By: #### G [facility] #### [facility] [address] [place] [address] DHEA SULFATEon 01-25-2020 DHEA SULFATE 214 ug/dL Normal 65 - 395 [facility] Comment on above: Result [...] for further information. Performed By: #### G [facility] #### [facility] [address] [place] [address] GC + CHLAMYDIA BY AMPLIFIED DETECTIONon 01-25-2020 CHLAMYDIA TRACH.,AMPLIFIED Negative Normal Negative [facility] Comment on above: Performed By: #### G CCHA #### [facility] [address] [place] [address] N.GONORRHEA,AMPLIFIED Negative Normal Negative [facility] Comment on above: Performed By: #### G [facility] #### [facility] [address] [place] [address] HEPATITIS B SURFACE AGon HEP.B SURFACE AG NONREACTIVE Normal NONREACTIVE [facility] Comment on above: Result Comment: Biot in interference may cause falsely decreased results. Patients taking a Biotin dose of up to 5 mg/day should refrain from taking Biotin for 24 hours before sample collection. Providers may contact their local laboratory for further information. Performed By: #### G [facility] #### [facility] [address] [place] [address] HEPATITIS C ABon 01-25-2020 HEPATITIS C AB NONREACTIVE Normal NONREACTIVE [facility] Comment on above: Result Comment: Resu lts from patients taking biotin supplements or receiving high-dose biotin therapy should be interpreted with caution due to possible interference with this test. Providers may contact their local laboratory for further information. Performed By: #### H [facility]AB #### [facility] [address] [place], [place] HIV ANTIGEN/ANTIBODY SCREENo n 01-25-2020 HIV AG/AB SCREEN NONREACTIVE Normal NONREACTIVE [facility] Comment on above: Result Comment: HIV Ag/Ab screen is performed using the Siemens [employer]oompallTopix HIV Ag/Ab Combo assay which detects the presence of HIV p24 antigen as well as antibodies to HIV-1 (Group M and O) and HIV-2. Performed By: #### G [facility] #### [facility] [address] [place] [address] RUBELLA IGG ABon 01-25-2020 RUBELLA IGG AB Positive Normal [facility] Comment on above: Result Comment: INTE RPRETATIVE [...] assays. Performed By: #### R UBIG #### [facility] [address] [place] [id number] SYPHILIS SCREENING WITH REFL EXon 01-25-2020 SYPHILIS TOTAL AB NONREACTIVE Normal NONREACTIVE [facility] Comment on above: Result Comment: No s ignificant level of Treponema pallidum antibody detected. Repeat testing in 2 to 4 weeks may be considered if early infection or incubating syphilis infection is suspected. Performed By: #### S YPHR #### [facility] [address] [place] [address] TSH WITH REFLEX TO FREE T4 I F ABNORMALon 01-25-2020 TSH Qn 2.17 m[IU]/L Normal 0.44 - 3.98 [facility] Comment on above: Result Comment: TSH testing is performed using different testing methodology at [facility] than at other [facility]. Direct result comparisons should only be made within the same method. Performed By: #### G CCHA #### [facility] [address] [place] [address] VARICELLA ZOSTER IGG ABon VARICELLA ZOSTER IGG AB Negative Normal NEGATIVE [facility] Comment on above: Result [...] assays. Performed By: #### V ARZG #### [facility] [address] [place] [address] VITAMIN D, 25-HYDROXYon 01-10 VITAMIN D, 25-HYDROXY 17 ng/mL Abnormal [facility] Comment on above: Result Comment: . DEFICIENCY: < 20 NG/ML INSUFFICIENCY: 20-29 NG/ML SUFFICIENCY: 30-100 NG/ML THIS ASSAY ACCURATELY QUANTIFIES THE SUM OF VITAMIN D3, 25-HYDROXY AND VIT D2,25-HYDROXY. { Performed By: #### G CCHA #### [facility] [address] [place] [address] GC + CHLAMYDIA BY AMPLIFIED DETECTIONon 01-24-2020 Lab Specimen Source Urine Normal [facility] Comment on above: Performed By: #### G CCHA #### [facility] [address] [place] [address] HEMOGLOBIN A1Con 01-24-2020 HbA1c (Bld) [Mass fraction] 5.5 % Normal [facility] Comment on above: Result Comment: Diag nosis of Diabetes-Adults Non-Diabetic: < or = 5.6% Increased risk for developing diabetes: 5.7-6.4% Diagnostic of diabetes: > or = 6.5% . Monitoring of Diabetes Age (y) Therapeutic Goal (%) Adults: >18 <7.0 Pediatrics: 13-18 <7.5 7-12 <8.0 0- 6 7.5-8.5 [employer]. Diabetes Care 33(S1), May 2009. Performed By: #### H BA1E #### [facility] [address] [place] [address] HbA1c (Bld) [Mass fraction] 111 MG/DL Normal [facility] Comment on above: Performed By: #### H BA1E #### [facility] [address] [place] [address] PLACING JUDGE - Office Visiton 01-10 PLACING JUDGE - Office Visit Chief Complaint 29 year [...] is currently incarcerated, and will be in [facility] until 2026. She is interested in pursuing fertility testing today, and pending these results would potentially be interested in single-parent procreation with donor sperm. She is not currently sexually active. She has a history of ectopic in 2011, which was treated with laparoscopic left salpingectomy in [facility]. 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 HISTORY: STDs: Yes, remote history of gonorrhea [...] PM Vitals Vital Signs Recorded: 24Jan2020 11:13AM Idvggcyqxzl16.7 F Heart Nnzf724 Umqywpnc169 Lcdhnkcdx28 Height5 ft 6 in Jhqcqo853 lb BMI Kfnultkjpq16.13 BSA Calculated2.35 Tobacco Useb) No Fall Screeninga) No falls within the last year [id number] Gravida1 Para0 Pain Scale0 Diagnoses/Problems Female infertility (628.9) (N97.9) Fertility testing (V26.21) (Z31.41) Morbid obesity (278.01) (E66.01) Irregular menses (626.4) (N92.6) Screening for STD (sexually transmitted disease) (V74.5) (Z11.3) *Orders Anti Mullerian Hormone; Status:Active; Requested for:24Jan2020; Perform:Lab Services - Lab To Draw (Non-Blood Test); Due:87Guh3990;Ordered; For:Female infertility, Fertility testing, Irregular menses, Morbid obesity; Ordered By:Bayron Mccarty; Start: Doxycycline Monohydrate 100 MG Oral Capsule; TAKE 1 CAPSULE EVERY 12 HOURS DAILY Rx By: Bayron Mccarty; Dispense: 5 Days ; #:10 Capsule; Refill: 0; For: Fertility testing; KEVIN = N; Verified Transmission to [place] [address]; Msg to Pharmacy: start medication the night before her procedure; Last Updated By: Cindi Lizarraga; 01/24/2020 12:08:27 PM Maternal Medicine Referral Evaluation and Treatment Evaluate AND Treat Status: Hold For - Scheduling Requested for: 83Jvy6981 Ordered; For: Morbid obesity; Ordered By: Bayron Mccarty Performed: Due: 20Lta7059 17-Hydroxyprogesterone, Serum; Status:Active; Requested for:86Yhw8212; Perform:Lab Services - Lab To Draw (Blood Test); Due:77Izm9542;Ordered; For:Screening for STD (sexually transmitted disease); Ordered By:Bayron Mccarty; DHEA Sulfate, Serum; Status:Active; Requested for:32Qvd1803; Perform:Lab Services - Lab To Draw (Blood Test); Due:11Flp9061;Ordered; For:Screening for STD (sexually transmitted disease); Ordered By:Bayron Mccarty; Hemoglobin A1C; Status:Active; Requested for:03Srr0090; Perform:Lab Services - Lab To Draw (Blood Test); Due:42Snv3756;Ordered; For:Screening for STD (sexually transmitted disease); Ordered By:Bayron Mccarty; Rubella IgG Antibody; Status:Active; Requested for:24Jan2020; Perform:Lab Services - Lab To Draw (Blood Test); Due:75Fie0047;Ordered; For:Screening for STD (sexually transmitted disease); Ordered By:Bayron Mccarty; Testosterone Free + Total; Status:Active; Requested for:24Jan2020; Perform:Lab Services - Lab To Draw (Blood Test); Due:97Ttp8934;Ordered; For:Screening for STD (sexually transmitted disease); Ordered By:Bayron Mccarty; TSH WITH REFLEX TO FREE T4 IF ABNORMAL; Status:Active; Requested for:24Jan2020; Perform:Lab Services - Lab To Draw (Blood Test); Due:99Icr5384;Ordered; For:Screening for STD (sexually transmitted disease); Ordered By:Bayron Mccarty; Ultrasound Pelvis Transvaginal; Status:Hold For - Scheduling; Requested for:24Jan2020; Perform:[facility]; Order Comments:will call with menses to schedule; Due:86Lxt3769;Ordered; For:Screening for STD (sexually transmitted disease); Ordered By:Bayron Mccarty; Radiologist to Determine Optimal Study : Y What are the patient's signs and symptoms? : fert testing Varicella Zoster IgG Antibody; Status:Active; Requested for:24Gat2622; Perform:Lab Services - Lab To Draw (Blood Test); Due:44Wry2538;Ordered; For:Screening for STD (sexually transmitted disease); Ordered By:Bayron Mccarty; Vitamin D 25-Hydroxy; Status:Active; Requested for:00Wkz8898; Perform:Lab Services - Lab To Draw (Blood Test); Due:72Gwq2207;Ordered; For:Screening for STD (sexually transmitted disease); Ordered By:Bayron Mccarty; Xray Hysterosalpingogram; Status:Hold For - Scheduling; Requested for:38Jlm7263; Perform:[facility]; Order Comments:will call with menses to schedule. schedule between -12. start doxycycline night prior to procedure; Due:44Scv4981;Ordered; For:Screening for STD (sexually transmitted disease); Ordered By:Bayron Mccarty; Radiologist to Determine Optimal Study : Y What are the patient's signs and symptoms? : fert testing Tobacco Use Screening; Status:Complete; Done: 21Pzk9055 Perform:Not Applicable;Ordered; For:SocHx: Never a smoker; Ordered [...] sent to her home pharmacy ([facility] in [place]) [ ] Day 3 FSH, LH, E2 [x] AMH [x] TSH [x] Prolactin [x] Testosterone, DHEAS [x] HgA1C [x] STD screening [x ] Preconceptual screening including Rubella,Varicella, Blood type [ ] Genetic Screen with [employer] - will consider [ ] Take vitamins [x] Return to see ARTIST SCIENTIFIC after workup complete to discuss management plan [...] above: Performed By: #### S YPHR #### [facility] [address] [place] [address] Performed By: #### Jovany ARZG #### [facility] [address] [place] [address] Performed By: #### R UBIG #### [facility] [address] [place] [address] Vital Signs Date Time Vital Sign Value Performing Clinician Facility 05-03-2024 15:110500 Body mass index (BMI) [Ratio] 49.09 kg/m2 Mena Winnetka PA Work Phone: [facility] 05-03-2024 15:11-0500 Body weight 137.95 kg Mena Winnetka PA Work Phone: [facility] 05-03-2024 15:11-0500 Diastolic blood pressure 70 mm[Hg] Mena [place]etka PA Work Phone: [facility] 05-03-2024 15:11-0500 Systolic blood pressure 120 mm[Hg] Mena Winnetka PA Work Phone: [facility] 04-22-2024 09:51-0500 Body mass index (BMI) [Ratio] 49.45 kg/m2 Tacho Shon DO Work Phone: [facility] 04-22-2024 09:51-0500 Body weight 138.98 kg Tacho Shon DO Work Phone: [facility] 04-22-2024 09:51-0500 Diastolic blood pressure 80 mm[Hg] Tacho Shon DO Work Phone: [facility] 04-22-2024 09:51-0500 Systolic blood pressure 130 mm[Hg] Tacho Shon DO Work Phone: [facility] 04-06-2024 14:10-0500 Body mass index (BMI) [Ratio] 48.58 kg/m2 Mena [place]et[place] PA Work Phone: [facility] 04-06-2024 14:10-0500 Body weight 136.53 kg Mena Marissa PA Work Phone: [facility] 04-06-2024 14:10-0500 Diastolic blood pressure 80 mm[Hg] Mena [place]et[place] PA Work Phone: [facility] 04-06-2024 14:10-0500 Systolic blood pressure 128 mm[Hg] Mena Marissa PA Work Phone: [facility] 03-22-2024 14:14-0500 Body mass index (BMI) [Ratio] 48.92 kg/m2 Tacho Hson DO Work Phone: [facility] 03-22-2024 14:14-0500 Body weight 137.49 kg Tacho Shon DO Work Phone: [facility] 03-22-2024 14:14-0500 Diastolic blood pressure 84 mm[Hg] Tacho Shon DO Work Phone: [facility] 03-22-2024 14:14-0500 Systolic blood pressure 126 mm[Hg] Tacho Shon DO Work Phone: [facility] 03-05-2024 23:11-0400 Diastolic blood pressure 78 mm[Hg] [facility] Work Phone: [facility] 03-05-2024 23:11-0400 Heart rate 90 /min [facility] Work Phone: [facility] 03-05-2024 23:11-0400 Respiratory rate 18 /min [facility] Work Phone: [facility] 03-05-2024 23:11-0400 SaO2% (BldA) [Mass fraction] 96 % [facility] Work Phone: [facility] 03-05-2024 23:11-0400 Systolic blood pressure 136 mm[Hg] [facility] Work Phone: [facility] 03-05-2024 19:59-0400 Body temperature 98.1 [degF] [facility] Work Phone: [facility] 03-05-2024 19:58-0400 Body height 167.64 cm [facility] Work Phone: [facility] 03-05-2024 19:58-0400 Body weight 136.55 kg [facility] Work Phone: [facility] 02-26-2024 19:50-0400 Body height 167.64 cm [facility] Work Phone: [facility] 02-26-2024 19:50-0400 Body temperature 97.8 [degF] [facility] Work Phone: [facility] 02-26-2024 19:50-0400 Body weight 136.98 kg [facility] Work Phone: [facility] 02-26-2024 19:50-0400 Diastolic blood pressure 91 mm[Hg] Services [employer] Work Phone: [facility] 02-26-2024 19:50-0400 Heart rate 103 /min Services [facility] [employer] Work Phone: [facility] 02-26-2024 19:50-0400 Respiratory rate 16 /min Services [facility] Work Phone: [facility] 02-26-2024 19:50-0400 SaO2% (BldA) [Mass fraction] 96 % Services [facility] [employer] Work Phone: [facility] 02-26-2024 19:50-0400 Systolic blood pressure 144 mm[Hg] Services [facility] Work Phone: [facility] 02-23-2024 14:01-0400 Body mass index (BMI) [Ratio] 48.76 kg/m2 Mena Ann PA Work Phone: [facility] 02-23-2024 14:01-0400 Body weight 137.04 kg Mena Marissa PA Work Phone: [facility] 02-23-2024 14:01-0400 Diastolic blood pressure 82 mm[Hg] Mena Ann PA Work Phone: [facility] 02-23-2024 14:01-0400 Systolic blood pressure 128 mm[Hg] Mena Marissa PA Work Phone: [facility] 01-20-2024 13:58-0400 Body mass index (BMI) [Ratio] 48.1 kg/m2 Tacho Shon DO Work Phone: [facility] 01-20-2024 13:58-0400 Body weight 135.17 kg Tacho Shon DO Work Phone: [facility] 01-20-2024 13:58-0400 Diastolic blood pressure 74 mm[Hg] Tacho Shon DO Work Phone: [facility] 01-20-2024 13:58-0400 Systolic blood pressure 122 mm[Hg] Tacho Valienteo DO Work Phone: [facility] 10-06-2023 17:42-0400 Body height 167.64 cm Services [facility] [employer] Work Phone: [facility] 10-06-2023 17:42-0400 Body temperature 98.3 [degF] [facility] Work Phone: [facility] 10-06-2023 17:42-0400 Body weight 134 kg Services [facility] Work Phone: [facility] 10-06-2023 17:42-0400 Diastolic blood pressure 94 mm[Hg] Services [facility] Work Phone: [facility] 10-06-2023 17:42-0400 Heart rate 98 /min Services [facility] Work Phone: [facility] 10-06-2023 17:42-0400 Respiratory rate 18 /min Services [facility] Work Phone: [facility] 10-06-2023 17:42-0400 SaO2% (BldA) [Mass fraction] 100 % Services [facility] Work Phone: [facility] 10-06-2023 17:42-0400 Systolic blood pressure 142 mm[Hg] Services [facility] Work Phone: [facility] 09-17-2023 14:22-0400 Body height 167.6 cm Anna Ortiz [facility] 09-17-2023 14:22-0400 Body mass index (BMI) [Ratio] 47.61 kg/m2 Anna Ortiz RD [facility] 09-17-2023 14:22-0400 Body weight 133.[address] [facility] 08-20-2023 13:050400 Body height 167.6 cm Tonya Seinor APRN.[facility] Work Phone: [facility] 08-20-2023 13:05-0400 Body weight 133.81 kg Tonya Senior [facility] Work Phone: [facility] 08-07-2023 15:23-0400 Body height 168.91 cm Services [facility] Work Phone: [facility] 08-07-2023 15:23-0400 Body mass index (BMI) [Ratio] 46.9 kg/m2 Services [facility] Work Phone: [facility] 08-07-2023 15:23-0400 Body weight 133.89 kg Services [facility] Work Phone: [facility] 08-07-2023 15:23-0400 Diastolic blood pressure 83 mm[Hg] Services [facility] Work Phone: [facility] 08-07-2023 15:23-0400 Heart rate 101 /min Services [facility] Work Phone: [facility] 08-07-2023 15:23-0400 Respiratory rate 18 /min Services [facility] Work Phone: [facility] 08-07-2023 15:23-0400 SaO2% (BldA) [Mass fraction] 98 % Services [facility] Work Phone: [facility] 08-07-2023 15:23-0400 Systolic blood pressure 120 mm[Hg] Services [facility] Work Phone: [facility] 06-13-2023 11:00-0500 Body height 168.28 cm [employer] Other [facility] 06-13-2023 11:00-0500 Body mass index (BMI) [Ratio] 48.53 kg/m2 Nicholas [employer] Other [employer] Other 06-13-2023 11:00-0500 Body weight 137.44 kg [employer] Other [employer] Other 06-13-2023 11:00-0500 Body weight 137.43 kg [facility] [employer] Work Phone: [facility] 06-13-2023 11:00-0500 Diastolic blood pressure 82 mm[Hg] Nicholas [employer] Other [facility] 06-13-2023 11:00-0500 Respiratory rate 18 /min Nicholasclayton Micha[employer] Other [employer] Other 06-13-2023 11:00-0500 SaO2% (BldA) [Mass fraction] 97 % Nicholas Michaels Other [employer] Other 06-13-2023 11:00-0500 Systolic blood pressure 120 mm[Hg] Nicholas Michaels Other [facility] 01-08-2023 10:45-0400 Body height 168.28 cm Nicholas Michaels Other [employer] Other 01-08-2023 10:45-0400 Body mass index (BMI) [Ratio] 52.89 kg/m2 Nicholas Michaels Other [employer] Other 01-08-2023 10:45-0400 Body weight 149.78 kg Nicholas Michaels Other [employer] Other 01-08-2023 10:45-0400 Diastolic blood pressure 81 mm[Hg] Nicholas Michaels Other [employer] Other 01-08-2023 10:45-0400 Respiratory rate 18 /min Nicholas Michaels Other [employer] Other 01-08-2023 10:45-0400 SaO2% (BldA) [Mass fraction] 97 % Nicholas Michaels Other [employer] Other 01-08-2023 10:45-0400 Systolic blood pressure 122 mm[Hg] Nicholas Michaels Other [facility] [employer] Other 06-18-2022 16:57-0500 Body height 167.64 cm [facility] Work Phone: [facility] 06-18-2022 16:57-0500 Body weight 157 kg [facility] Work Phone: [facility] 06-18-2022 16:56-0500 Body temperature 98.3 [degF] [facility] Work Phone: [facility] 06-18-2022 16:56-0500 Diastolic blood pressure 67 mm[Hg] [facility] Work Phone: [facility] 06-18-2022 16:56-0500 Heart rate 95 /min [facility] Work Phone: [facility] 06-18-2022 16:56-0500 Respiratory rate 20 /min [facility] Work Phone: [facility] 06-18-2022 16:56-0500 SaO2% (BldA) [Mass fraction] 97 % [facility] Work Phone: [facility] 06-18-2022 16:56-0500 Systolic blood pressure 158 mm[Hg] [facility] Work Phone: [facility] 12-02-2021 20:26-0400 Body height 167.64 cm [facility] Work Phone: [facility] 12-02-2021 20:26-0400 Body temperature 98.2 [degF] [facility] Work Phone: [facility] 12-02-2021 20:26-0400 Body weight 144.24 kg [facility] Work Phone: [facility] 12-02-2021 20:26-0400 Diastolic blood pressure 89 mm[Hg] [facility] Work Phone: [facility] 12-02-2021 20:26-0400 Heart rate 104 /min Services [facility] Work Phone: [facility] 12-02-2021 20:26-0400 Respiratory rate 20 /min [facility] Work Phone: [facility] 12-02-2021 20:26-0400 SaO2% (BldA) [Mass fraction] 96 % Services [facility] [employer] Work Phone: [facility] 12-02-2021 20:26-0400 Systolic blood pressure 156 mm[Hg] Services [facility] Work Phone: [facility] 06-19-2020 11:10-0500 BMI (Body Mass Index) 46.65 kg/m2 Bayron Bibiana YB-AJIAF-Uxrpbw 310 IVF Work Phone: 06-19-2020 11:10-0500 Body weight 131.09 kg Bayron Bibiana KK-LMQRO-Rbjshl 310 IVF Work Phone: 06-19-2020 11:10-0500 BSA (Body Surface Area) 2.34 m2 Bayron Bibiana BD-XQRDC-Ylsswx 310 IVF Work Phone: 06-19-2020 11:10-0500 Height 167.64 cm Bayron Bibiana PQ-CSFWF-Jjlacv 310 IVF Work Phone: 06-19-2020 11:10-0500 1 1 Bayron Bibiana OT-NDJHT-Lpbofm 310 IVF Work Phone: Comment on above: 06-19-2020 11:10-0500 0 1 Bayron Bibiana VC-VMRNR-Zeqkbm 310 IVF Work Phone: Comment on above: [...] Start: 04-27-2024 End: 04-27-2024 ambulatory TACHO R [facility] Start: 04-22-2024 End: 04-22-2024 Bamboo flowsheet [...] Start: 03-30-2024 End: 03-30-2024 ambulatory TACHO R [facility] Start: 03-22-2024 End: 03-22-2024 Bamboo [...] Clinisync Result Encounter Mena CARRILLO Work Phone: [facility] External Department Unsolicited Start: 03-19-2024 End: 03-19-2024 Clinisync Result Encounter Mena CARRILLO Work Phone: [facility] External Department Unsolicited Start: 03-05-2024 End: 03-05-2024 Emergency department patient visit Services [facility] Work Phone: [facility] Work Phone: Start: 03-01-2024 End: 03-01-2024 Orders Only Veda Hayes RN Maternal- Medic ine at [facility] Comment on above: Encounter for follow -up ultrasound of anatomy (Primary Dx); History of pre-eclampsia in prior , currently ; History of delivery, currently ; Obesity affecting in second trimester, unspecified obesity type Start: 02-26-2024 End: 02-26-2024 Emergency department patient visit Services [facility] Work Phone: [facility] Work Phone: Start: 02-23-2024 End: 02-23-2024 [...] 02-17-2024 End: 02-17-2024 ambulatory TACHO R SHON [facility] Start: 01-26-2024 End: 01-26-2024 Clinisync Result Encounter Tacho Shon DO Work Phone: [facility] External Department Unsolicited Start: 01-26-2024 End: 01-26-2024 Clinisync Result Encounter Tacho Shon DO Work Phone: [facility] External Department Unsolicited Start: 01-20-2024 End: 01-20-2024 Office outpatient visit 15 minutes Tacho Shon DO Work Phone: [facility] Comment on above: Second trimester pre gnancy Start: 01-20-2024 End: 01-20-2024 ambulatory TACHO SHON Not Available Start: 01-19-2024 End: 01-19-2024 ambulatory TACHO R SHON [facility] Start: 12-23-2023 End: 12-23-2023 ambulatory MENA ANN Not Available Start: 11-25-2023 End: 11-25-2023 ambulatory TACHO SHON Not Available Start: 10-30-2023 End: 10-30-2023 ambulatory TACHO SHON Not Available Start: 10-09-2023 End: 10-09-2023 ambulatory LATONIA GREENE Facility:[facility] Start: 10-06-2023 End: 10-06-2023 Emergency department patient visit Services [facility] Work Phone: [facility]gency [facility] Work Phone: Start: 09-17-2023 End: 09-17-2023 ambulatory ANNA ANGEL Facility:[facility] Start: 09-17-2023 End: 09-17-2023 Nutrition therapy Anna Angel BAÑUELOS Nutrition Therapy Comment on above: Obesity, Class III, BMI 40-49.9 (morbid obesity) (HCC) (Primary Dx); Dietary counseling Start: 09-17-2023 End: 09-17-2023 Telemedicine consultation with patient Anna Ortiz SARMAD Nutrition Therapy Start: 09-15-2023 Admission to [facility] surgery cranks Tonya Senior APRN.BUSINESS INTELLIGENCE ARCHITECT Work Phone: General Surgery Comment on above: Results Start: 09-15-2023 E-mail encounter fro m caregiver oTnya Senior APRN.BUSINESS INTELLIGENCE ARCHITECT Work Phone: General Surgery Start: 09-11-2023 Telephone encounter Tonya Senior APRN.BUSINESS INTELLIGENCE ARCHITECT Work Phone: General Surgery Comment on above: Results Start: 09-08-2023 End: 09-08-2023 ambulatory TONYA SENIOR Facility:[facility] Start: 09-05-2023 End: 09-05-2023 ambulatory TONYA SENIOR Facility:[facility] Start: 09-01-2023 End: 09-02-2023 ambulatory LATONIA GREENE Facility:[facility] Start: 09-01-2023 End: 09-01-2023 Admission to same day surgery center Latonia Greene PhD Work Phone: General Surgery BMI PSYL Comment on above: NO SHOW (Primary Dx) Start: 09-01-2023 End: 09-01-2023 Telemedicine consultation with patient Latonia Greene PhD Work Phone: General Surgery BMI PSYL Start: 08-20-2023 Admission to [facility] surgery center Tonya Senior CHECKERING MACHINE ADJUSTER.BUSINESS INTELLIGENCE ARCHITECT Work Phone: General Surgery Comment on above: Welcome to Bariatric Surgery Start: 08-20-2023 E-mail encounter fro m caregiver Tonya Ron Senior APRN.BUSINESS INTELLIGENCE ARCHITECT Work Phone: [place] [phone] Start: 08-20-2023 End: 08-20-2023 ambulatory Tonya Ron Senior APRN.BUSINESS INTELLIGENCE ARCHITECT Work Phone: General Surgery Comment on above: Body mass index (BMI ) of 50-59.9 in adult (HCC) (Primary Dx); Angel's thyroiditis; High blood cholesterol Start: 08-20-2023 End: 08-20-2023 Telemedicine consultation with patient Tonya K Parrish IBARRA.BUSINESS INTELLIGENCE ARCHITECT Work Phone: [facility] Start: 08-07-2023 End: 08-07-2023 ambulatory [facility] Work Phone: [facility] Work Phone: Start: 08-07-2023 End: 08-07-2023 Patient encounter procedure [facility] Work Phone: [facility] Work Phone: Start: 06-13-2023 Follow-up encounter Nicholas [facility] Start: 06-13-2023 Registered Recurring [facility] Work Phone: [facility] Work Phone: Start: 06-13-2023 End: 06-13-2023 ambulatory Nicholas Michaels [employer] Other Start: 06-13-2023 End: 06-13-2023 Patient encounter procedure [facility] Work Phone: [facility]- Start: 01-08-2023 End: 01-08-2023 ambulatory Nicholas Michaels Other [employer] Other Start: 01-08-2023 Nutrition therapy Nicholas pérez [facility] Start: 06-18-2022 End: 06-18-2022 Emergency department patient visit Services Family [facility] Work Phone: [facility] Work Phone: Start: 06-03-2022 End: 06-03-[address] TACHO MENENDEZ Facility: Start: 12-02-2021 End: 12-02-2021 Emergency department patient visit Services Family [facility] Work Phone: [facility] Start: 07-08-2020 Patient encounter procedure Bayron Mccarty PH-DJEKX-Vixbfx 310 IVF Work Phone: Start: 07-05-2020 Patient encounter procedure Bayron Mccarty RA-QHXCY-Zdcevw 310 IVF Work Phone: Start: 06-19-2020 Patient encounter procedure Bayron Mccarty HA-SRVSQ-Injfry 310 IVF Work Phone: Start: 04-14-2020 Patient encounter procedure Bayron Mccarty VV-ZGCHX-Kkfjtm 310 IVF Work Phone: Start: 03-28-2020 Patient encounter procedure Bayron Mccarty VA-JPBES-Menplm 310 IVF Work Phone: Start: 2020 Patient encounter procedure Bayron Mccarty VA-UFUFR-Mntzsn 310 IVF Work Phone: Start: 01-24-2020 Patient encounter procedure Bayron Mccarty OR-SCGYS-Pdqyup 310 IVF Work Phone: Start: 08-01-2017 End: 08-02-2017 Ambulatory Agustin Neidasriram Facility:[id number] Start: 07-14-2017 End: 07-15-2017 Ambulatory Agustin Carrasquillosriram Facility:[id number] Procedures Date Procedure Procedure Detail Performing [...] Start: 03-05-2024 Plain chest X-ray Servi malina [employer] [facility] Work Phone: Start: 03-05-2024 Respiratory Panel (PCR) Services [facility] Work Phone: Start: 03-05-2024 Streptococcus pyogen es antigen assay Services Family [facility] Work Phone: Start: 02-26-2024 Streptococcus pyogen es antigen assay Services [facility] Work Phone: Start: 02-23-2024 Urnls [...] above: Performed By: #### T +S #### [facility] [address] [place] [address] Start: 07-05-2020 IO Ultrasound, limit ed pelvic, follicle monitoring Bayron Mccarty Start: 06-26-2020 IO Ultrasound, limit ed pelvic, follicle monitoring Bayron Mccarty Start: 05-10-2020 Assay of progesterone J oseptiffanie Bibiana Adenoid excision Bayron wallace Cholecystectomy Bayron Chen ey SARS Antigen (LFIA) [facility] Work Phone: Plan of Treatment Date Care Activity Detail Author Start: 12-22-2028 Screening for malign ant neoplasm of cervix [facility] Start: 12-22-2026 Screening for malign ant neoplasm of cervix [facility] Start: 03-01-2025 End: 03-01-2025 US MFM with or without consult US MFM with or without consult Imaging Routine Encounter for follow-up ultrasound of anatomy History of pre-eclampsia in prior , currently History of delivery, currently Obesity affecting in second trimester, unspecified obesity type Expected: 03/01/2025 (Approximate), Expires: 03/01/2025 [employer] Phone: Comment on above: Expected: 03/01/2025 (Approximate), Expires: 03/01/2025 Start: 01-18-2025 Adult BMI Screening Adult BMI Screen ing [facility] Start: 01-18-2025 Tobacco Screening Tobacco Screening [facility] Start: 05-17-2024 End: 05-17-2024 Patient encounter procedure 05/17/2024 3:00 PM EST Routine [facility] [address] [place] [id number] Tacho Menendez DO [address] [place] [address] [facility] Start: 05-03-2024 End: 05-03-2024 Patient encounter procedure 05/03/2024 2:50 PM EST Routine [facility] [address] [place] [address] Mena Ann PA [address] [place], [place] [id number] [facility] Start: 04-22-2024 End: 04-22-2025 [...] PM EST Routine [facility] [address] [facility] [place] [id number] Mena Ann PA [address] [place], [place] [id number] [facility] Start: 03-30-2024 End: 03-30-2024 Patient encounter procedure 03/30/2024 2:45 PM EST Appointment [facility] - Ultrasound [address] [place] [id number] [facility] - Ultrasound Start: 03-22-2024 End: 03-22-2024 Patient encounter procedure 03/22/2024 1:50 PM EST Routine [facility] [address] [place] [id number] Tacho Menendez DO [address] [place] [address] [facility] Start: 03-22-2024 End: 03-22-2024 Professional / ancillary services management 03/22/2024 1:00 PM EST Ancillary Procedure [facility] [address] [place] [address] [facility] Start: 03-16-2024 End: 03-16-2024 Patient encounter procedure 03/16/2024 1:30 PM EST Routine [facility] [address] [facility] [address] [place] [address] Tacho Menendez DO [address] [facility] [address] [place], [place] [id number] [facility] Start: 02-23-2024 End: 02-22-2025 CBC panel - Blood by Automated count CBC Lab Routine Diabetes mellitus screening Expected: 02/23/2024 (Approximate), Expires: 02/22/2025 [facility] Work Phone: Comment on above: Expected: 02/23/2024 (Approximate), Expires: 02/22/2025 Start: 02-23-2024 End: 02-22-2025 Measurement of glucose 1 hour after glucose challenge for glucose tolerance test Glucose tolerance, 1 hour Lab Routine Diabetes mellitus screening Expected: 02/23/2024 (Approximate), Expires: 02/22/2025 [facility] Comment on above: Expected: 02/23/2024 (Approximate), Expires: 02/22/2025 Start: 02-23-2024 End: 02-22-2025 US for US OB SCAN FOR GROWTH Imaging Routine size inconsistent with dates H/O premature delivery Expected: 02/23/2024 (Approximate), Expires: 02/22/2025 [facility] Comment on above: Expected: 02/23/2024 (Approximate), Expires: 02/22/2025 Start: 02-23-2024 End: 02-23-2024 Patient encounter procedure 02/23/2024 1:40 PM EDT Routine [facility] [address] [facility] [place] [phone] Mena Ann PA [address] [facility] [place] [address] Arrived [facility] Comment on above: Arrived Start: 02-18-2024 End: 02-18-2024 Patient encounter procedure 02/18/2024 2:30 PM EDT Routine [facility] [address] [facility] [address] [place] [address] Mena Ann PA [address] [facility] [address] [place], [place] [id number] [facility] Start: 01-11-2024 COVID-19 Vaccine ( season) COVID-19 Vaccine () [facility] Start: 01-11-2024 Influenza vaccination N [facility] Start: 09-17-2023 End: 09-17-2023 Nutrition therapy 09/17/2023 2:30 PM EDT [facility] Nutrition Therapy [address] [place] [id number] Anna Ortiz, RD [address] [place] [address] Red/Davis/0 Diet/[place] Nutrition Therapy Comment on above: Red/Davis/0 Diet/ [place] Start: 09-12-2023 End: 09-12-2023 Admission to same day surgery center 09/12/2023 3:30 PM EDT [facility] General Surgery [address] [place] [address] Joo Bradley MD [address] [place] [address] Red/Kirk/0 Diet/[place] General Surgery Comment on above: Red/Kirk/0 Diet/Anth em Start: 09-05-2023 End: 09-05-2023 ambulatory 09/05/2023 11:45 AM EDT Results Only [facility] [address] [place] [address] [place] [address] [facility] Start: 08-20-2023 End: 11-19-2023 25-hydroxyvitamin D3 [Mass/volume] in Serum or Plasma VITAMIN D 25 HYDROXY Lab Routine Body mass index (BMI) of 50-59.9 in adult ([facility]) Expected: 08/20/2023, Expires: 11/19/2023 [facility] Work Phone: Comment on above: Expected: 08/20/2023 , Expires: 11/19/2023 Start: 08-20-2023 End: 11-19-2023 CBC W Auto Differential panel - Blood COMPLETE BLOOD COUNT AND DIFFERENTIAL Lab Routine Body mass index (BMI) of 50-59.9 in adult ([facility]) Expected: 08/20/2023, Expires: 11/19/2023 [facility] Work Phone: Comment on above: Expected: 08/20/2023 , Expires: 11/19/2023 Start: 08-20-2023 End: 11-19-2023 Cobalamin (Vitamin B12) [Mass/volume] in Serum or Plasma VITAMIN B12 Lab Routine Body mass index (BMI) of 50-59.9 in adult ([facility]) Expected: 08/20/2023, Expires: 11/19/2023 [facility] Work Phone: Comment on above: Expected: 08/20/2023 , Expires: 11/19/2023 Start: 08-20-2023 End: 11-19-2023 Comprehensive metabolic 2000 panel - Serum or Plasma COMPREHENSIVE METABOLIC PANEL Lab Routine High blood cholesterol Body mass index (BMI) of 50-59.9 in adult ([facility]) Expected: 08/20/2023, Expires: 11/19/2023 [facility] Work Phone: Comment on above: Expected: 08/20/2023 , Expires: 11/19/2023 Start: 08-20-2023 End: 11-19-2023 Ferritin [Mass/volume] in Serum or Plasma FERRITIN Lab Routine Body mass index (BMI) of 50-59.9 in adult ([facility]) Expected: 08/20/2023, Expires: 11/19/2023 [facility] Work Phone: Comment on above: Expected: 08/20/2023 , Expires: 11/19/2023 Start: 08-20-2023 End: 11-19-2023 Folate [Mass/volume] in Serum or Plasma FOLATE, SERUM Lab Routine Body mass index (BMI) of 50-59.9 in adult ([facility]) Expected: 08/20/2023, Expires: 11/19/2023 [facility] Work Phone: Comment on above: Expected: 08/20/2023 , Expires: 11/19/2023 Start: 08-20-2023 End: 11-19-2023 Helicobacter pylori IgG Ab [Presence] in Serum or Plasma by Immunoassay H PYLORI IGG AB Lab Routine Body mass index (BMI) of 50-59.9 in adult ([facility]) Expected: 08/20/2023, Expires: 11/19/2023 [facility] Work Phone: Comment on above: Expected: 08/20/2023 , Expires: 11/19/2023 Start: 08-20-2023 End: 11-19-2023 Hemoglobin A1c in Blood HEMOGLOBIN A1C Lab Routine Body mass index (BMI) of 50-59.9 in adult ([facility]) Expected: 08/20/2023, Expires: 11/19/2023 [facility] Work Phone: Comment on above: Expected: 08/20/2023 , Expires: 11/19/2023 Start: 08-20-2023 End: 11-19-2023 Iron and Iron binding capacity panel - Serum or Plasma IRON AND TIBC Lab Routine Body mass index (BMI) of 50-59.9 in adult ([facility]) Expected: 08/20/2023, Expires: 11/19/2023 [facility] Work Phone: Comment on above: Expected: 08/20/2023 , Expires: 11/19/2023 Start: 08-20-2023 End: 11-19-2023 Lipid 1996 panel - Serum or Plasma LIPID PANEL BASIC Lab Routine High blood cholesterol Body mass index (BMI) of 50-59.9 in adult ([facility]) Expected: 08/20/2023, Expires: 11/19/2023 [facility] Work Phone: Comment on above: Expected: 08/20/2023 , Expires: 11/19/2023 Start: 08-20-2023 End: 11-19-2023 Natriuretic peptide.B prohormone N-Terminal [Mass/volume] in Serum or Plasma NT PRO BNP Lab Routine Body mass index (BMI) of 50-59.9 in adult ([facility]) Expected: 08/20/2023, Expires: 11/19/2023 [facility] Work Phone: Comment on above: Expected: 08/20/2023 , Expires: 11/19/2023 Start: 08-20-2023 End: 11-19-2023 NICOTINE & METAB, UR NICOTINE & METAB, UR Lab Routine Body mass index (BMI) of 50-59.9 in adult ([facility]) Expected: 08/20/2023, Expires: 11/19/2023 [facility] Work Phone: Comment on above: Expected: 08/20/2023 , Expires: 11/19/2023 Start: 08-20-2023 End: 11-19-2023 Thyrotropin [Units/volume] in Serum or Plasma THYROID STIMULATING HORMONE Lab Routine Angel's thyroiditis Body mass index (BMI) of 50-59.9 in adult ([facility]) Expected: 08/20/2023, Expires: 11/19/2023 [facility] Work Phone: Comment on above: Expected: 08/20/2023 , Expires: 11/19/2023 Start: 08-20-2023 End: 11-19-2023 TOXICOLOGY SCREEN, ROUTINE URINE TOXICOLOGY SCREEN, ROUTINE URINE Lab Routine Body mass index (BMI) of 50-59.9 in adult ([facility]) Expected: 08/20/2023, Expires: 11/19/2023 [facility] Work Phone: Comment on above: Expected: 08/20/2023 , Expires: 11/19/2023 Start: 08-20-2023 End: 11-19-2023 VITAMIN B1 (THIAMINE), WHOLE BLOOD VITAMIN B1 (THIAMINE), WHOLE BLOOD Lab Routine Body mass index (BMI) of 50-59.9 in adult ([facility]) Expected: 08/20/2023, Expires: 11/19/2023 [facility] Work Phone: Comment on above: Expected: 08/20/2023 , Expires: 11/19/2023 Start: 05-12-2023 Behavioral Health Screening Behavioral Health Screening [facility] Start: 01-10-2023 Covid-19 Vaccine ( season) Covid-19 Vaccine () [facility] Start: 12-02-2021 Plain chest X-ray XR chest 1V portab le [facility] Start: 12-02-2021 XR Chest Single view [facility] Work Phone: Start: 2021 Screening for malign ant neoplasm of cervix HPV Testing [facility] Start: 2012 Screening for malign ant neoplasm of cervix Pap Testing [facility] Start: 2010 Hepatitis B Vaccine (1 of 3 - 19+ 3-dose series) Hepatitis B Vaccine (1 of 3 - 19+ 3-dose series) [facility] Start: 2009 Adult BMI Follow Up Plan Adult BMI Follow Up Plan [facility] Start: 2009 HIV screening HIV Screening [facility] Start: 2003 Depression Screening [facility] Start: 2002 DTaP,Tdap and Td Vaccines (6 - Tdap) DTaP,Tdap and Td Vaccines (6 - Tdap) [facility] Start: 2002 Urine microalbumin profile DTaP,Tdap,Td Vaccine (6 - Tdap) [facility] End: 08-19-2024 ECG COMPLETE ECG COMPLETE ECG Routine Body mass index (BMI) of 50-59.9 in adult (HCC) 1 Occurrences starting 08/20/2023 until 08/19/2024 [facility] Work Phone: Comment on above: 1 Occurrences starti ng 08/20/2023 until 08/19/2024 Patient Education [facility] Work Phone: Patient referral [facility] Work Phone: Thyrotropin [Units/volume] in Serum or Plasma TSH Lab Routine Thyroid disease (CMS/HCC) Ordered: 04/22/2024 [facility] Comment on above: Ordered: 04/22/2024 End: 09-18-2024 US Abdomen RUQ US ABD RIGHT UPPER QUADRANT Radiology Routine Body mass index (BMI) of 50-59.9 in adult (HCC) 1 Occurrences starting 08/20/2023 until 09/18/2024 [facility] Work Phone: Comment on above: 1 Occurrences starti ng 08/20/2023 until 09/18/2024 End: 09-18-2024 XR Chest PA and Lateral XR CHEST 2V FRONTAL/LAT Radiology Routine Body mass index (BMI) of 50-59.9 in adult (HCC) 1 Occurrences starting 08/20/2023 until 09/18/2024 [facility] Work Phone: Comment on above: 1 Occurrences starti ng 08/20/2023 until 09/18/2024 JD-SVRYB-Xnergx 310 IVF Work Phone: [facility] c NEGATED: Highlighted row has been ruled out! Planned Goals not documented UH-YJRXK-Zsbrky 310 IVF Work Phone: Immunizations Immunization Date Immunization Notes Care Provider Sonia miramontes 03-11-2023 influenza virus vacc ine, unspecified formulation Tacho Menendez DO Work Phone: [facility] Healthcare Payers Date Payer Category Payer Self-pay [id number] 2022 Medicaid [id number] 2022 Medicaid [id number] 1991 Unknown [id number] 3 1991 Unknown [id number] 86 1991 Unknown [id number] 86 1991 Unknown [id number] 86 1991 Unknown [id number] 86 1991 Unknown [id number] 86 1991 Unknown [id number] 59 1991 Unknown [id number] 59 1991 Unknown [id number] 59 1990 Unknown [id number] 59 1990 Unknown [id number] 2.16.840.1.500093.3.579.2.12 59 1991 Unknown [id number] 2.16.840.1.045589.3.579.2.12 59 1991 Unknown [id number] 2.16.840.1.021972.3.579.2.12 59 1991 Unknown [id number] 2.16.840.1.339019.3.579.2.12 59 1991 Unknown [id number] 2.16.840.1.840209.3.579.2.12 59 1958 Medicaid [id number] Private Health Insurance [facility] [id number] Unknown [id number] Unknown Regular Insurance [id number] Unknown [employer] [id number] Unknown Regular Auto/Medical [id number] Unknown [id number] 1 Unknown [id number] [id number] 1 Unknown [id number] [id number] 1 Unknown [id number] 1 Social History Date Type Detail Facility Start: 12-02-2021 End: 05-17-2023 Tobacco smoking status NHIS Never smoked tobacco (finding) [facility] Start: 1990 Sex Assigned At Female F [facility] Start: 05-17-2023 End: 08-20-2023 Sex Assigned At [facility] Other Start: 05-17-2023 End: 08-20-2023 Tobacco use and exposure Smokeless tobacco non-user [facility] Work Phone: Start: 08-20-2023 End: 05-03-2024 Alcohol intake Current drinker of alcohol (finding) [facility] Start: 05-17-2023 End: 08-20-2023 History of Social function [facility] National Score (1-100), lower number is lower risk 86 [facility] Start: 08-20-2023 [facility] Start: 1990 Sex Assigned At Not on file [facility] Start: 08-26-2023 Gender identity Identifies as female gender (finding) [facility] Start: 08-26-2023 Sexual orientation Heterosexual (brina beyer) [facility] Start: 09-14-2023 [facility] How often to you hav e [...] Start: 01-19-2024 Alcoholic beverage intake Ex-drinker (finding) [facility] Start: 12-13-2014 Sex Female (finding) [facility] NEGATED: Highlighted row - - [id number] 310 [facility] Work Phone: Functional Status Date Assessment Result Facility NEGATED: Highlighted row Functional performance Functional status health issues are not documented Disease [id number] 310 [facility] Work Phone: Mental Status Date Assessment Result Facility NEGATED: Highlighted row Cognitive function [Interpretation] Cognitive status health issues are not documented Disease [id number] 310 [facility] Work Phone: Clinical Notes 01-08-2023 [...] of: GERARDO Vazquez documented in this encounter 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 Exam conducted with a outreach team member present. Vitals: Estimated body mass index is [...] Tacho Menendez DO documented in this encounter [facility] 04-06-2024 History of Presen t illness [...] of: GERARDO Vazquez documented in this encounter [facility] 03-22-2024 History of Presen t illness [...] Morbid obesity with BMI of 50.0-59.9, adult (CMS/[facility]) Vaginal delivery Social History Tobacco [...] nursing note reviewed. Exam conducted with a outreach team member present. Vitals: Estimated body mass index is [...] Tacho Menendez DO documented in this encounter [facility] 02-23-2024 History of Presen t illness [...] Morbid obesity with BMI of 50.0-59.9, adult (CMS/[facility]) Vaginal delivery HISTORY PAST MEDICAL HISTORY SOCIAL HISTORY Past Medical History: Diagnosis Date Abdominal pain Breast pain, right Cholelithiasis Encounter for cervical smear to confirm findings of recent normal smear following initial abnormal smear Angel's disease (CMS/HCC) Hypothyroidism (CMS/HCC) Morbid obesity ([facility]) Morbid obesity with BMI of 50.0-59.9, adult ([facility]) Vaginal delivery Social History Tobacco [...] nursing note reviewed. Exam conducted with a outreach team member present. Vitals: Estimated body mass index is [...] of: GERARDO Vazquez documented in this encounter [facility] 01-20-2024 History of Presen t illness Narrative [...] nursing note reviewed. Exam conducted with a outreach team member present. Vitals: Estimated body mass index is [...] notified. Pt has follow up appt at [facility] in four weeks. Pt to return to office in four weeks for scheduled OB appt. Documented by Priscilla Fernandez LPN on behalf of: Tacho Menendez DO documented in this encounter [facility] 10-09-2023 Note HNO ID: [id number] Author: LATONIA GREENE, PhD Service: ? Author Type: Psychologist Type: Progress Notes Filed: 10/17/2023 11:09 Note Text: [facility] BARIATRIC SURGERY BEHAVIORAL HEALTH EVALUATION BMI Surgical Pathway Visit type: Psychology Visit DATE OF SERVICE: October 09, 2023 TIME OF SERVICE: 1:00 PM - 2:00 PM COST CENTER: [facility] CPT CODE: - [id number] Virtual Psych Diagnostic Eval BILLING CODE: ENDO PSYL MAIN Jerel DATE OF FIRST SERVICE THIS CYCLE: October 09, 2023 SESSION #: 1 I have communicated my name and active licensure. The patient's identity and physical location (see below) were verified at the time of this visit. Either the patient or their legal tax compliance representative has been informed of the risks and benefits of -- and alternatives to -- treatment through a remote evaluation and consents to proceed with the evaluation remotely. This evaluation is NOT intended for forensic, disability or child custody purposes. The patient e-signed a copy of the consent form via [email or web address] and the [facility] insurance benefits, fees for service, emergency [...] in case of emergency and/or disconnection. [address] [place] [address] ([place] [facility] [place] [facility] was mother) Alternate Sourcing Engineer Bibi Arrieta (Mother) [phone] (Home Phone) Patient identified the following plan to follow in case of emergency: Go to emergency room (nearest is [facility]) or call 911. IDENTIFYING INFORMATION: Ms. Jaleesa [...] pt has l (more content not included)... [facility] 09-22-2023 Telephone encounter Note Can not schedule patient as there is already a patient scheduled for that day and time. Please advise. Thanks Meme Castrejon [facility] 09-22-2023 Telephone encounter Note ----- Message from Anna Ortiz RD sent at 09/17/2023 3:17 PM EDT ----- Regarding: virtual follow up Please schedule for a virtual up 10/16 at 1. The patient is aware, no call needed. Thank you! Anna [facility] 09-22-2023 Miscellaneous Notes Can not schedule patient [...] Tonya Senior APRN.MERON documented in this encounter [facility] 09-17-[address] - 09/17/2023 3:12 PM EDT 1. Read Nutritional Guidelines Section of Your Guide to Surgery by next session [email or web address] -/[email or web address]/ [email or web address]?la=[email or web address] 2. Do not [...] full-liquid diet. Examples: Slim Fast Advanced Nutrition Pillager Breakfast Essentials Light Start Drink mixed with [...] Bariatric Multivitamin and Calcium Citrate (total of 5060-9413 mg/day) * take calcium citrate separately from Multivitamin with iron at least 2 hours apart and 4 hours apart from additional calcium www.Risk Management Solution.[employer] - Bariatric Choice: 4 Complete Multivitamins (chewables) per day Www.bariatricchoice.Gram Games - Bariatric Advantage: 2 Multivitamins and 3 Calcium Citrate Chewables per day * take calcium citrate separately from Multivitamin with iron at least 2 hours apart and 4 hours apart from additional calcium Www.bariatricadvantage.Gram Games Start practicing eating slowly, chewing each bite of food 20-30 x per bite, making meals last 20-30 minutes, separatign food and fluids by 30 minutes . Have all meals and snacks at the table with no distractions. Make placemat for reminders; work towards normal sleep/wake pattern Pre-op goal weight: 281 pounds Protein needs: 85 grams per day documented in this encounter [facility] 09-17-2023 Note HNO ID: [id number] Author: ANNA ORTIZ RD Service: ? Author Type: Registered Dietitian Type: Progress Notes Filed: 09/17/2023 15:19 Note Text: The [facility] Nutrition Therapy: Virtual Consult - Initial Assessment I have communicated my name and active licensure. The patient?s identity and physical location were verified at the time of this visit. Either the patient or their legal tax compliance representative has been informed of the risks [...] Your Guide to Surgery by next session [email or web address] -/scassets/files/[email or web address]/[email or web address]/ [email or web address]?la=en 2. Do not [...] Examples: ? Slim Fast Advanced Nutrition ? Pillager Breakfast Essentials ?Light Start? Drink mixed with [...] AM, 2 in the PM) www.bariatricfusion.com - [employer]: 1 Bariatric Multivitamin and Calcium Citrate (total of 5498-0630 mg/day) * take calcium citrate separately from Multivitamin with iron at least 2 hours apart and 4 hours apart from additional calcium www.procarenow.G[employer] Games - Bariatric Choice: 4 Complete Multivitamins (chewables) [...] and using Phen (more content not included)... [facility] 09-17-2023 History of Presen t illness Narrative The [facility] Nutrition Therapy: Virtual Consult - Initial Assessment I have communicated my name and active licensure. The patient s identity and physical location were verified at the time of this visit. Either the patient or their legal tax compliance representative has been informed of the risks [...] Your Guide to Surgery by next session [email or web address] -/scassets/files/org/[email or web address]/ [email or web address] [email or web address]?la=en 2. Do not [...] full-liquid diet. Examples: Slim Fast Advanced Nutrition Pillager Breakfast Essentials Light Start Drink mixed with [...] AM, 2 in the PM) www.bariatricfusion.com - [employer]: 1 Bariatric Multivitamin and Calcium Citrate (total of 9223-6804 mg/day) * take calcium citrate separately from Multivitamin with iron at least 2 hours apart and 4 hours apart from additional calcium www.BeThereRewards - Bariatric Choice: 4 Complete Multivitamins (chewables) per day Www.bariatricchoEgully.Gram Games - Bariatric Advantage: 2 Multivitamins and 3 Calcium Citrate Chewables per day * take calcium citrate separately from Multivitamin with iron at least 2 hours apart and 4 hours apart from additional calcium Www.bariatricadvantage.Gram Games Start practicing eating slowly, chewing each bite [...] suggested by 180 Initial weight: 295 lbs. [place] body weight is 155 lbs. Excess body weight is 140 lbs. Goal weight pre-op is 281 lbs. Protein needs are estimated at 85gm (1.2 - protein/kg IBW) Patient meets the National Institutes of Health guidelines for weight loss surgery and has [place] Insurance therefore is required to complete 0 [...] TIME: 2:25 PM documented in this encounter [facility] 09-11-2023 Telephone encounter Note Attempted to call pt, re: hypothyroid and low vitamin d levels, no answer, left vm. Tonya Senior APRN.BUSINESS INTELLIGENCE ARCHITECT [facility] 09-01-2023 Note HNO ID: [id number] Author: LATONIA GREENE, PhD Service: ? Author Type: Psychologist Type: Progress Notes Filed: 09/01/2023 13:22 Note Text: [facility] Progress Note 09/01/2023 Billing code: Jerel Patient did not attend, cancel, or reschedule this appointment. Provider left HIPAA compliant voicemail and MyChart message with contact information to reschedule. Latonia Greene, PhD Clinical Psychologist [facility] 09-01-2023 History of Presen t illness Narrative [facility] Progress Note 09/01/2023 Billing code: Jerel Patient did not attend, cancel, or reschedule this appointment. Provider left HIPAA compliant voicemail and MyChart message with contact information to reschedule. Latonia Greene PhD Clinical Psychologist documented in this encounter [facility] 08-20-2023 Note HNO ID: [id number] Author: TONYA SENIOR APRN.BUSINESS INTELLIGENCE ARCHITECT Service: ? Author Type: Nurse Practitioner Type: Progress Notes Filed: 08/20/2023 16:21 Note Text: have communicated my name and active licensure. The patient's identity and physical location were verified at the time of this visit. Either the patient or their legal tax compliance representative has been informed of the risks and benefits of -- and alternatives to -- treatment through a remote evaluation and consents to proceed with the evaluation remotely. BMI MEDICAL CONSULT I have communicated my name and active licensure. The patient's identity and physical location were verified at the time of this visit. Either the patient or their legal tax compliance representative has been informed of the risks [...] mass index (BMI) of 50-59.9 in adult ([facility]) 08/20/2023 Angel's thyroiditis 08/20/2023 High [...] mass index (BMI) of 50-59.9 in adult ([facility]) - ICD9: V85.43, ICD10: Z68.43 (primary diagnosis) Weight decreasing - Behavioral intervention, - Medical nutrition therapy with dietitian, and - Psychology - COMPLETE BLOOD COUNT AND DIFFERENTIAL - COMPREHENSIVE METABOLIC PANEL - FERRITIN - FOLATE, SERUM - HEMOGLOBIN A1C - (more content not included)... [facility] 08-20-2023 History of Presen t illness Narrative Images from the original note were not included. have communicated my name and active licensure. The patient's identity and physical location were verified at the time of this visit. Either the patient or their legal tax compliance representative has been informed of the risks and benefits of -- and alternatives to -- treatment through a remote evaluation and consents to proceed with the evaluation remotely. BMI MEDICAL CONSULT I have communicated my name and active licensure. The patient's identity and physical location were verified at the time of this visit. 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 Please excuse errors in video game script writer. Jun, Dietary surveillance and counseling (ICD-10 - [...] for a goal of 5% weight reduction. [facility] Other 08-30-2023 Evaluation note* Encounter Date Diagnosis [...] on in the past and denies side daclkza-Dcrpo-lz-care A1c today 5.4%-Follow up in clinic in 4 weeksThis note was created with voice recognition software. Please excuse errors in video game script writer. Dec, Dietary surveillance and counseling (ICD-10 - [...] premade protein drink for breakfast, by plain Occitan yogurt and flavor yourself with cinnamon or [...] with the patient, and documenting clinical information. [facility] Other Chief complaint+Reason for visit Narrative* Chief Complaint Obesity Reason for Visit Exercise counseling Severe obesity (BMI >= 40) [facility] Work Phone: Chief complaint+Reason for visit Narrative* Chief Complaint Pos test, Cramping, Vaginal bleeding Reason for Visit Exercise counseling Severe obesity (BMI >= 40) [facility] Work Phone: Evaluation noteNo assessment information available [facility] Work Phone: Evaluation note* Diagnosis Onset Date Resolution Status Exercise counseling acute Severe obesity (BMI >= 40) delilah kevin [facility] Work Phone: evaluation note* Diagnosis Body mass index (BMI) of 50-59.9 in adult ([facility])- Primary Body Mass Index 50.0-59.9, adult Angel's thyroiditis Chronic lymphocytic thyroiditis High blood cholesterol Pure hypercholesterolemia documented [facility] Diagnosis NO SHOW- Primary [facility]* Diagnosis Obesity, Class III, BMI 40-49.9 (morbid obesity) ([facility])- Primary Morbid obesity Dietary counseling Dietary surveillance and counseling documented [facility] this [facility] [place] [facility]* Diagnosis Vitamin D deficiency- Primary Unspecified vitamin D deficiency documented [facility] [place] [facility]* Diagnosis 25 weeks gestation of Second trimester state, incidental Diabetes mellitus screening Screening for diabetes mellitus size inconsistent with dates H/O premature delivery documented in this encounter [facility]* Diagnosis Encounter for follow-up ultrasound of anatomy- Primary History of pre-eclampsia in prior , currently with other poor obstetric history History of delivery, currently with history of pre-term labor Obesity affecting in second trimester, unspecified obesity type [facility] Diagnosis Third trimester state, incidental 29 weeks gestation of documented in this encounter [facility]* Diagnosis Third trimester state, incidental 31 weeks gestation of H/O premature delivery documented in this encounter [facility]* Diagnosis 33 weeks gestation of Third trimester state, incidental H/O premature delivery Thyroid disease ([facility]) Unspecified disorder of thyroid H/O pre-eclampsia in [...] Fallopian tube removed Hospitalization History See Above [facility] Other Hospital Discharge instructions Additional Instructions You may take akkn-duk-sigsrhs cough and cold medication as needed You may take qsxc-eoa-hmhjfia Tylenol and/or ibuprofen as needed Increase oral fluids Follow-up with family doctor as needed Return to the ER for any acute difficulty breathing high fever vomiting or any other [facility] Work Phone: Hospital Discharge instructions Additional Instructions Nothing into vagina until seen by PLACING JUDGE May take Tylenol for discomfort Increase oral fluids Follow-up with PLACING JUDGE Return to the ER for heavy bleeding greater than a pad an hour feeling dizzy lightheaded or any other concernsUniversity [facility] Work Phone: Hospital Discharge instructions Additional Instructions Follow-up with your OB in the next week.[facility] Work Phone: InstructionsNot on filedocumented in this encounter [facility] ([facility] Diagnostic Procedure Only (Routine) - Pending Review Specialty Diagnoses / Procedures Referred By Wendy campos Referred To Contact [facility] Diagnoses Body mass index (BMI) of 50-59.9 in adult (HCC) Procedures US ABD RIGHT UPPER QUADRANT US ABDOMINAL REAL TIME W/IMAGE LIMITED Tonya Senior, BUSINESS INTELLIGENCE ARCHITECT [address] [place] [address] [place] [address] Referral ID Status Reason Start Date Expiration Date Visits Requested Visits Authorized [id number] Pending Review Auto-Generat ed Referral 08/20/2023 09/18/2024 1 1 * Outpatient Procedure (Routine) - Pending Review Specialty Diagnoses / Procedures Referred By Wendy t Referred To [facility] Diagnoses Body mass index (BMI) of 50-59.9 in adult (HCC) Procedures ECG COMPLETE ECG ROUTINE ECG W/LEAST 12 LDS W/I&R Tonya Senior APRN.MERON [address] [place] [address] [facility] [address] [place], [place] [id number] Referral ID Status Reason Start Date Expiration Date Visits Requested Visits Authorized [id number] Pending Review Auto-Generat ed Referral 08/20/2023 08/19/2024 1 1 [facility] Summary Purpose Family History No Family History [...] and content) DATE CREATED AUTHOR 10/31/2017 [facility] DATE CREATED AUTHOR AUTHOR'S ORGANIZ ATION 04/23/2020 [facility] DATE CREATED AUTHOR AUTHOR'S ORGANIZ ATION 08/08/2020 [facility] DATE CREATED AUTHOR AUTHOR'S ORGANIZ ATION 08/22/2020 [facility] DATE CREATED AUTHOR AUTHOR'S ORGANIZ ATION 06/11/2022 [facility] DATE CREATED AUTHOR AUTHOR'S ORGANIZ ATION 09/06/2023 [facility] DATE CREATED AUTHOR AUTHOR'S ORGANIZ ATION 10/03/2023 [facility] DATE CREATED AUTHOR AUTHOR'S ORGANIZ ATION 10/18/2023 [facility] DATE CREATED AUTHOR AUTHOR'S ORGANIZ ATION 01/20/2024 [facility] DATE CREATED AUTHOR AUTHOR'S ORGANIZ ATION 03/19/2024 [facility] DATE CREATED AUTHOR AUTHOR'S ORGANIZ ATION 04/30/2024 [facility] DATE CREATED AUTHOR AUTHOR'S ORGANIZ ATION 05/05/2024 [facility] d[facility] EPIC Care Teams (unrecognized sec [...] End: October 06, 2023 Marychuy Kyle , CERTIFIED COURT/MEDICAL INTERPRETER-BC Emergency Provider Active Start: October 06, 2023 End: October 06, 2023 Team Status: Inactive Member Role Status Dates Services [facility] Primary Care Provider Active Start: February 26, 2024 End: February 26, 2024 Ck To PA-C Emergency Provider Active Start: February 26, 2024 End: February 26, 2024 Team Status: Inactive Member Role Status Dates Services [facility] Primary Care Provider Active Start: [...] or prosecute any alcohol or drug abuse patient.[facility] the event this information is protected by the Federal Confidentiality of Alcohol and Drug Abuse Patient Records regulations: The Federal rules restrict any use of the information to criminally investigate or prosecute any alcohol or drug abuse patient.[facility] the event this information is protected by the Federal Confidentiality of Alcohol and Drug Abuse Patient Records regulations: The Federal rules restrict any use of the information to criminally investigate or prosecute any alcohol or drug abuse patient.[facility] the event this information is protected by the Federal Confidentiality of Alcohol and Drug Abuse Patient Records regulations: The Federal rules restrict any use of the information to criminally investigate or prosecute any alcohol or drug abuse patient.[facility] the event this information is protected by the Federal Confidentiality of Alcohol and Drug Abuse Patient Records regulations: The Federal rules restrict any use of the information to criminally investigate or prosecute any alcohol or drug abuse patient.[facility] the event this information is protected by the Federal Confidentiality of Alcohol and Drug Abuse Patient Records regulations: The Federal rules restrict any use of the information to criminally investigate or prosecute any alcohol or drug abuse patient.[facility] [place] FOR RECORDS PERTAINING TO PATIENTS WHO ARE [...] BE BASED ON THE PRIMARY CLINICAL RECORDS. [employer] [facility]. provides no warranty or guarantee of the accuracy or completeness of information in this document.
[2024-05-11 20:48] VITALS: BP 129/71; PULSE 107
== END 2024-05-11 21:28 | disposition home or self-care (01) ==
LOC: FBCO 05:39 → FBC 20:39
PROVIDERS: Visit Provider Obstetrics & Gynecology
DX: O26.893 Other specified pregnancy related conditions, third trimester (principal); Z3A.36 36 weeks gestation of pregnancy
CPT/HCPCS: 59025

== ENCOUNTER 2024-05-14 01:20 | Outpatient (OUT) | payer MEDICAID, SELFPAY ==
--- OUTSIDE RECORDS SUMMARY | 2024-05-14 01:24 | XMS_ITS | CCD ---
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 Name Role Phone Agustin Patton Unavailable Unavailable Agustin Patton Unavailable Unavailable Bayron Mccarty Unavailable Unavailable Unavailable Unavailable Unavailable Unavailable Unavailable Unavailable [facility] Services Primary Care Provider DEMETRIUS To Emergency Provider DR TACHO MENENDEZ Attending Unavailable DR TACHO MENENDEZ Consulting Unavailable DR TACHO MENENDEZ Admitting Unavailable [facility] Primary Care Provider Anabella [facility] Marychuy E Emergency Provider Nicholas Michaels Unavailable [facility] Services Primary Care Provider DO Nicholas Michaels Attending Provider [phone] Unavailable Primary Care Provider Unavailabl e Unavailable Primary Care Provider Unavailabl e LATONIA GREENE Attending Unavailable TONYA SENIOR Attending Unavailable [facility] Primary Care Provider [phone] Anabella [facility] Marychuy E Emergency Provider [phone] LATONIA GREENE Referring Unavailable LATONIA GREENE Attending Unavailable ANNA ORTIZ Attending Unavailable TONYA SENIOR Referring Unavailable TONYA SENIOR Referring Unavailable TACHO MENENDEZ Referring Unavailable MAKEDA GROSS Attending Unavailable TACHO MENENDEZ Referring Unavailable Unavailable Primary Care Provider Unavailabl e [facility] Primary Care Provider DEMETRIUS To Emergency Provider [phone] Unavailable Primary Care Provider Unavailabl DO Devika Christie Emergency Provider Ck To Attending Unavailable Ck To Admitting Unavailable [facility] Primary Care Unavaila Marychuy Rey Attending Unavailable Marychuy Kyle Admitting Unavailable [facility] Primary Care Unavaila Nicholas Willams Attending Unavailable Nicholas Michaels Admitting Unavailable [facility] Primary Care Unavaila ble [facility] Primary Care Unavaila Devika [...] mg/ml oral solution (2 sources) Phenothiazine, Uncompetitive E-szddsz-R-aspartate Receptor Antagonist, Sigma-1 Agonist Start: 02-26-2024 take [...] Daily 30 tablet 11 10/30/2023 10/29/2024 Active [place] (No Known Home Meds) (3 sources) Start: 10-06-2023 [place] (No Kn own Home Meds) Active October 06, 2023 12:00am Start: 06-18-2022 [place] (No Kn own Home Meds) Active June [...] oral solution (7 sources) alpha-Adrenergic Agonist, Uncompetitive I-tqqxna-V-asparta te Receptor Antagonist, Sigma-1 Agonist Start: 2 [...] 26, 2019 12:58pm July 28, 2020 7:27pm Scsxvbdw-Eng-Ks-Fa () 1 mg Tablet (7 sources) Start: 12-31-2020 End: 07-04-2021 take 1 tablet by mouth once Nvflbwdo-Xvn-Fp-Fa () 1 mg Tablet Discontinued TAB PO December 30, 2020 11:00pm July 04, 2021 9:48am Start: 12-31-2020 End: 07-04-2021 take 1 tablet by mouth once Blagyqbv-Mum-Gx-F a () 1 mg Tablet Discontinued TAB PO December 31, 2020 12:00am July 04, 2021 10:48am progesterone 100 mg oral capsule (9 sources) Progesterone Start: 07-28-2020 End: 12-31-2020 Progesterone Micronized Discontinued 100 MG VAGINAL Twice daily July 28, 2020 12:00am December 31, 2020 9:55am Start: 06-19-2020 take 1 capsule by [facility] twice daily Progesterone Micronized 100 MG Oral Capsule TAKE 1 CAPSULE Twice daily insert capsules vaginally Quantity: 30 Refills: 3 Bayron Mccarty MD Start : 19-Jun-2020 Active sennosides, fpc 8.6 mg oral tablet (1 source) take 4 tablets by [facility] every twenty-four hours Senna 8.6 [...] HORMONEon 1 07-04-2023 TSH Qn 2.422 m[IU]/L [facility] Urinalysis macro (dipstick) panel (U)on 05-03-2024 Bilirubin, UA Negative Negative - 4(70) +++ mg/dL [facility] Blood, UA Negative Negative - 50 Bradley/mcL [facility] Clarity, UA Clear [facility] Color, UA Yellow [facility] Glucose, UA Negative Negative - 1999(110) ++++ mg/dL [facility] Interpretation and review of laboratory results Abnormal [facility] Ketones, UA Negative Negative - 160(16) ++++ mg/dL [facility] Leukocytes, UA Positive Negative - 500+++ Gabby/mcL [facility] Comment on above: small Nitrite, UA Negative Negative - Positive [facility] pH, UA 6 5 - 9 [facility] Protein, UA Negative Negative - 1999(20) ++++ mg/dL [facility] Spec Grav, UA 1.03 1 - 1.03 [facility] Urobilinogen, UA 0.2 0.2 - 12 mg/dL [facility] Urinalysis macro (dipstick) panel (U)on 04-22-2024 Bilirubin, UA Negative Negative - 4(70) +++ mg/dL [facility] Blood, UA Negative Negative - 50 Bradley/mcL [facility] Clarity, UA Clear [facility] Color, UA Yellow [facility] Glucose, UA Negative Negative - 1999(110) ++++ mg/dL [facility] Interpretation and review of laboratory results Abnormal [facility] Ketones, UA Negative Negative - 160(16) ++++ mg/dL [facility] Leukocytes, UA Trace Negative - 500+++ Gabby/mcL [facility] Nitrite, UA Negative Negative - Positive [facility] pH, UA 6 5 - 9 [facility] Protein, UA Positive Negative - 1999(20) ++++ mg/dL [facility] Comment on above: 30 Spec Grav, UA 1.025 1 - 1.03 [facility] Urobilinogen, UA 1.0 0.2 - 12 mg/dL [facility] Urinalysis macro (dipstick) panel (U)on 04-06-2024 Bilirubin, UA Negative Negative - 4(70) +++ mg/dL [facility] Blood, UA Negative Negative - 50 Bradley/mcL [facility] Clarity, UA Clear [facility] Color, UA Yellow [facility] Glucose, UA Negative Negative - 1999(110) ++++ mg/dL [facility] Interpretation and review of laboratory results Abnormal [facility] Ketones, UA Negative Negative - 160(16) ++++ mg/dL [facility] Leukocytes, UA Positive Negative - 500+++ Gabby/mcL [facility] Comment on above: small Nitrite, UA Negative Negative - Positive [facility] pH, UA 7 5 - 9 [facility] Protein, UA Negative Negative - 1999(20) ++++ mg/dL [facility] Spec Grav, UA 1.02 1 - 1.03 [facility] Urobilinogen, UA 0.2 0.2 - 12 mg/dL [facility] Urinalysis macro (dipstick) panel (U)on 03-22-2024 Bilirubin, UA Positive Negative - 4(70) +++ mg/dL [facility] Blood, UA Negative Negative - 50 Bradley/mcL [facility] Clarity, UA Clear [facility] Color, UA Yellow [facility] Glucose, UA Negative Negative - 1999(110) ++++ mg/dL [facility] Interpretation and review of laboratory results Normal [facility] Ketones, UA Positive Negative - 160(16) ++++ mg/dL [facility] Leukocytes, UA Positive Negative - 500+++ Gabby/mcL [facility] Nitrite, UA Negative Negative - Positive [facility] pH, UA 7 5 - 9 [facility] Protein, UA Positive Negative - 1999(20) ++++ mg/dL [facility] Spec Grav, UA 1.025 1 - 1.03 [facility] Urobilinogen, UA 1.0 0.2 - 12 mg/dL [facility] ALL CBC WITH AUTO DIFFon BASOPHILS ABSOLUTE AUTO 0 [facility] Basophils/100 WBC (Bld) 0.5 % 0.2 - 2.0 % [facility] Eosinophils/100 WBC (Bld) 2.4 % 0.9 - 7.0 % [facility] Erythrocyte distribution width (RBC) [Ratio] 13.2 % 11.0 - 15.0 % [facility] Hematocrit (Bld) [Volume fraction] 33.2 % Low 36.0 - 48.0 % [facility] Hemoglobin (Bld) [Mass/Vol] 11.1 g/dL Low 12.0 - 16.0 g/dL [facility] IMMATURE GRANULOCYTES ABS AUTO 0.02 [facility] Immature granulocytes/100 WBC (Bld) 0.3 % 0.0 - 0.5 % [facility] Interpretation and review of laboratory results Abnormal [facility] LYMPHOCYTES ABSOLUTE AUTO 2.1 [facility] Lymphocytes/100 WBC (Bld) 32.5 % 20.5 - 60.0 % [facility] MCH (RBC) [Entitic mass] 30.5 pg 26.7 - 34.0 pg [facility] MCHC (RBC) [Mass/Vol] 33.4 g/dL 29.9 - 35.2 g/dL [facility] MCV (RBC) [Entitic vol] 91.2 fL 81.0 - 99.0 fL [facility] MONOCYTES ABSOLUTE AUTO 0.3 [facility] Monocytes/100 WBC (Bld) 4.6 % 1.7 - 12.0 % [facility] NEUTROPHILS ABSOLUTE AUTO 3.9 [facility] Neutrophils/100 WBC (Bld) 59.7 % 43.0 - 75.0 % [facility] Platelet mean volume (Bld) [Entitic vol] 9.3 fL Low 9.5 - 13.5 fL [facility] TBH EO # 0.2 [facility] TB PLT [address] [facility] RBC 3.64 Low [facility] TB WBC 6.6 [facility] BioFire Not Detectedon 03-05 BioFire Not Detected Not detected Normal Not Detecte Eboni angulo [facility] Comment on above: Result Comment: This is a duplicate RP2.1 COVID (PCR) result to be used for statistical tracking purpose only. PERFORMED BY: [facility] [address] [place] [address] PATHOLOGIST ROOFER VINYL COATING LION STANLEY M.D. Performed By: #### B IOFIRECOVNOTDE, QS, RESP PANEL UPP. #### [facility] [address] COVID-19 Detected/Not Detect edOrdered By: Devika De La Garza on 03-05-2024 SARS-CoV-2 (COVID-19) RNA YANET+non-probe Ql (Nph) Not detected Not Detecte [facility] Comment on above: This is a duplicate RP2.1 COVID (PCR) result to be used for statistical tracking purpose only. ECG 12 lead ECGon 03-05-2024 ECG 12 lead ECG [facility] [place] [address] [place] [address] Electrocardiograph Report Signed Patient: Jaleesa Arrieta MR#: [id number] 94 : 1990 Acct:[id number] Age/Sex: 33 / F ADM Date: 03/05/24 Loc: ER Room: Type: [facility] ER Attending Dr: Ordering Provider: [...] Confirmed by DEVIKA DE LA GARZA DO ([id number]) on 03/06/2024 1:44:25 AM Referred By: Electronically Signed By: DEVIKA DE LA GARZA DO Transcribed By: MUS Signed By Devika De La Garza DO 03/06 0144 Normal [facility] Quick Strepon 03-05-2024 Quick Strep Streptococcus pyogen es Ag [Presence] in Throat by Rapid immunoassay Negative for Group A Strep Antigen Note 1 NOTE 2 Results are those of a screening test. NOTE 3 If clinically indicated please order a culture. NOTE 4 NOTE 5 Reference range = Negative PERFORMED BY: [place] [address] PATHOLOGIST ROOFER VINYL COATING LION STANLEY M.D. Normal [facility] Comment on above: Performed By: #### B IOFIRECOVNOTDE, QS, RESP PANEL UPP. #### [address] Respiratory (Upper) Panel, P CRon 03-05-2024 [...] A H3 Blank Space ------ PERFORMED BY: [place] [address] PATHOLOGIST ROOFER VINYL COATING LION STANLEY M.D. Normal [facility] Comment on above: Performed By: #### B IOFIRECOVNOTDE, QS, RESP PANEL UPP. #### [address] Respiratory pathogens DNA an d RNA panel - Nasopharynx by YANET with non-probe detectionOrdered By: Devika De La Garza on 03-05-2024 Respiratory pathogens DNA and RNA panel YANET+non-probe (Nph) [facility] Streptococcus pyogenes antig en detectionOrdered By: Devika De La Garza on 03-05-2024 S. pyogenes Ag Ql (Unsp spec) [facility] XR chest 1V portableon 03-05 XR chest 1V portable [facility] [place] [address] [place] [address] XRay Report Signed Patient: Jaleesa Arrieta MR#: [id number] [birth year] : 1990 Acct:[id number] Age/Sex: 33 / F ADM Date: 03/05/24 Loc: ER Room: Type: [facility] ER Attending Dr: Copies to: Devika [...] Priscilla Cunningham M.D.03/05/2024 9:34 PM Dictation Location: [place] [address] Transcribed By: [facility] 03/05/242133 Dictated By: Priscilla Cunningham MD 03/05/242130 Signed By: 03/05/242133 Normal [facility] Quick Strepon 02-26-2024 Quick Strep Streptococcus pyogen es Ag [Presence] in Throat by Rapid immunoassay Negative for Group A Strep Antigen Note 1 NOTE 2 Results are those of a screening test. NOTE 3 If clinically indicated please order a culture. NOTE 4 NOTE 5 Reference range = Negative PERFORMED BY: [place] [address] PATHOLOGIST ROOFER VINYL COATING LION STANLEY M.D. Normal [facility] Comment on above: Performed By: #### Q S #### [address] Streptococcus pyogenes antig en detectionOrdered By: Ck To on 02-26-2024 S. pyogenes Ag Ql (Unsp spec) [facility] Urinalysis macro (dipstick) panel (U)on 02-23-2024 Bilirubin, UA Negative Negative - 4(70) +++ mg/dL [facility] Blood, UA Negative Negative - 50 Bradley/mcL [facility] Clarity, UA Clear [facility] Color, UA Yellow [facility] Glucose, UA Negative Negative - 1999(110) ++++ mg/dL [facility] Interpretation and review of laboratory results Abnormal [facility] Ketones, UA Negative Negative - 160(16) ++++ mg/dL [facility] Leukocytes, UA Positive Negative - 500+++ Gabby/mcL [facility] Comment on above: small Nitrite, UA Negative Negative - Positive [facility] pH, UA 7 5 - 9 [facility] Protein, UA Negative Negative - 1999(20) ++++ mg/dL [facility] Spec Grav, UA 1.02 1 - 1.03 [facility] Urobilinogen, UA 0.2 0.2 - 12 mg/dL [facility] ALL THYROID STIM HORMONEon 0 01-26-2024 TSH Qn 2.645 m[IU]/L [facility] Urinalysis macro (dipstick) panel (U)on 01-20-2024 Bilirubin, UA Negative Negative - 4(70) +++ mg/dL [facility] Blood, UA Negative Negative - 50 Bradley/mcL [facility] Clarity, UA Clear [facility] Color, UA Yellow [facility] Glucose, UA Negative Negative - 1999(110) ++++ mg/dL [facility] Interpretation and review of laboratory results Abnormal [facility] Ketones, UA Negative Negative - 160(16) ++++ mg/dL [facility] Leukocytes, UA Trace Negative - 500+++ Gabby/mcL [facility] Nitrite, UA Negative Negative - Positive [facility] pH, UA 6.5 5 - 9 [facility] Protein, UA Negative Negative - 1999(20) ++++ mg/dL [facility] Spec Grav, UA 1.020 1 - 1.03 [facility] Urobilinogen, UA 0.2 0.2 - 12 mg/dL [facility] Alanine aminotransferase [En zymatic activity/volume] in Serum or PlasmaOrdered By: Marychuy Kyle on 10-06-2023 ALT [Catalytic activity/Vol] 13 U/L Normal 7-52 [facility] Comment on above: Performed By: #### C BC, CMP, HCGQNT #### [facility] [address] Albumin [Mass/volume] in Ser um or Plasma by Bromocresol green (BCG) dye binding methoOrdered By: Marychuy Jeronimoimore on 10-06-2023 Albumin BCG dye [Mass/Vol] 3.8 g/dL 3.5-5.7 [facility] Alkaline phosphatase [Enzyma tic activity/volume] in Serum or PlasmaOrdered By: Marychuy Wangore on 10-06-2023 ALP [Catalytic activity/Vol] 61 U/L Normal 34-104 [facility] Comment on above: Performed By: #### C BC, CMP, HCGQNT #### [facility] [address] Aspartate aminotransferase [ Enzymatic activity/volume] in Serum or PlasmaOrdered By: Marychuy Bullimore on 10-06-2023 AST [Catalytic activity/Vol] 13 U/L Normal 13-39 [facility] Comment on above: Performed By: #### C BC, CMP, HCGQNT #### [address] Automated basophil %Ordered By: Marychuy Bullimore on 10-06-2023 Basophils/100 WBC (Bld) 0.6 % Normal . [facility] Comment on above: Performed By: #### C BC, CMP, HCGQNT #### [address] Automated basophil countOrde red By: Marychuy Bullimore on 10-06-2023 Basophils (Bld) [#/Vol] 0.0 10*3/uL Normal 0.0-0.2 [facility] Comment on above: Result Comment: PERF ORMED BY: [place] [address] PATHOLOGIST ROOFER VINYL COATING LION STANLEY M.D. Performed By: #### C BC, CMP, HCGQNT #### [address] Automated blood monocyte cou ntOrdered By: Marychuy Bullimore on 10-06-2023 Monocytes (Bld) [#/Vol] 0.5 10*3/uL Normal 0.0-0.8 [facility] Comment on above: Performed By: #### C BC, CMP, HCGQNT #### [address] Automated eosinophil %Ordere d By: Marychuy Bullimore on 10-06-2023 Eosinophils/100 WBC (Bld) 0.7 % Normal . [facility] Comment on above: Performed By: #### C BC, CMP, HCGQNT #### [address] Automated eosinophil countOr dered By: Marychuy Bullimore on 10-06-2023 Eosinophils (Bld) [#/Vol] 0.1 10*3/uL Normal 0.0-0.45 [facility] Comment on above: Performed By: #### C BC, CMP, HCGQNT #### [facility] [address] Automated epithelial cells c ount in urine sediment (number/area)Ordered By: Marychuy Jeronimoimore on 10-06-2023 Epithelial cells Auto (Urine sed) [#/Area] 3-4 [HPF] 0-2 [facility] Automated monocyte %Ordered By: Marychuy Bullimore on 10-06-2023 Monocytes/100 WBC (Bld) 6.7 % Normal . [facility] Comment on above: Performed By: #### C BC, CMP, HCGQNT #### [address] Automated neutrophil %Ordere d By: Marychuy Jeronimoimore on 10-06-2023 Neutrophils/100 WBC (Bld) 54.4 % Normal . [facility] Comment on above: Performed By: #### C BC, CMP, HCGQNT #### [facility] [address] [place] [address] Bacteria [Presence] in Urine by AutomatedOrdered By: Marychuy Kyle on 10-06-2023 Bacteria Auto Ql (U) None seen [HPF] None Seen [facility] Bilirubin Test strip Ql (U)O rdered By: Marychuy Jeronimoimore on 10-06-2023 Bilirubin Ql (U) Negative Negative [facility] Bilirubin.total [Mass/volume ] in Serum or PlasmaOrdered By: Marychuy Phaniimore on 10-06-2023 Bilirubin [Mass/Vol] 0.2 mg/dL Low 0.3-1.0 [facility] Comment on above: Performed By: #### C BC, CMP, HCGQNT #### [facility] [address] [place] [address] Calcium [Mass/volume] in Ser um or PlasmaOrdered By: Marychuy Bullimore on 10-06-2023 Calcium [Mass/Vol] 9.4 mg/dL Normal 8.6-10.3 [facility] Comment on above: Performed By: #### C BC, CMP, HCGQNT #### [facility] [address] [place] [address] [place] Carbon dioxide, total [Moles /volume] in Serum or PlasmaOrdered By: Marychuy Phaniimore on 10-06-2023 CO2 [Moles/Vol] 25.5 mmol/L Normal 21.0-31.0 [facility] Comment on above: Performed By: #### C BC, CMP, HCGQNT #### [facility] [address] Chloride [Moles/volume] in S sondra or PlasmaOrdered By: Marychuy Bullimore on 10-06-2023 Chloride [Moles/Vol] 105 mmol/L Normal 98-107 [facility] Comment on above: Performed By: #### C BC, CMP, HCGQNT #### [facility] [address] Choriogonadotropin.beta subu nit [Units/volume] in Serum or PlasmaOrdered By: Marychuy Jeronimoimore on 10-06-2023 HCG.beta subunit Qn 2799.00 m[IU]/mL [facility] Comment on above: Approximate Approxim ate hCG Gestational Age Range (mIU/ml) (weeks)0.2-1 5-50 1-2 50-500 2-3 100-5,000 3-4 500-10,000 4-5 1,000-50,000 5-6 10,000-100,000 6-8 15,000-200,000 8-12 10,000-100,000 Color of Urine by AutoOrdere d By: Marychuy Kyle on 10-06-2023 Color (U) Yellow Normal Yellow [facility] Comment on above: Order Comment: NEED MORE SPECIMEN Name Collection Type:: Clean-Voided Midstream Performed By: #### A DDONUAPLUS #### [facility] [address] Complete Blood Count Auto Di ffon 10-06-2023 Mean Corpuscular HGB Conc 34.4 g/dL Normal 32.0-35.0 [facility] Comment on above: Performed By: #### C BC, CMP, HCGQNT #### [address] Monocytes/100 WBC (Bld) 17.37 % Normal 0.00-20.00 [facility] Comment on above: Performed By: #### C BC, CMP, HCGQNT #### [address] NRBC% 0.2 /100{WBC} Normal 0-0.5 [facility] Comment on above: Performed By: #### C BC, CMP, HCGQNT #### [address] Comprehensive Metabolic Pane panchito 10-06-2023 Albumin [Mass/Vol] 3.8 g/dL Normal 3.5-5.7 [facility] Comment on above: Performed By: #### C BC, CMP, HCGQNT #### [address] Creatinine Clr Calc Pharmacy 180.48 Normal [facility] Comment on above: Performed By: #### C BC, CMP, HCGQNT #### [address] GFR/1.73 sq M.predicted MDRD (S/P/Bld) [Vol rate/Area] mL/min/{1.73_m2} Normal [facility] Comment on above: Performed By: #### C BC, CMP, HCGQNT #### [address] Creatinine [Mass/volume] in Serum or PlasmaOrdered By: Marychuy Kyle on 10-06-2023 Creatinine [Mass/Vol] 0.63 mg/dL Normal 0.60-1.20 [facility] Comment on above: Performed By: #### C BC, CMP, HCGQNT #### [address] Dipstick and Microscopicon 0 10-06-2023 Appearance (U) Clear Normal Clear [facility] Comment on above: Order Comment: NEED MORE SPECIMEN Name Collection Type:: Clean-Voided Midstream Performed By: #### A DDONUAPLUS #### [address] Bacteria,Urine None Seen Normal None Seen [facility] Comment on above: Order Comment: NEED MORE SPECIMEN Name Collection Type:: Clean-Voided Midstream Performed By: #### A DDONUAPLUS #### [address] Bilirubin,Urine Negative Normal Negative [facility] Comment on above: Order Comment: NEED MORE SPECIMEN Name Collection Type:: Clean-Voided Midstream Performed By: #### A DDONUAPLUS #### [address] Glucose Ql (U) Normal Normal Normal [facility] Comment on above: Order Comment: NEED MORE SPECIMEN Name Collection Type:: Clean-Voided Midstream Performed By: #### A DDONUAPLUS #### [address] Hyaline Casts,Urine 0-8 Normal 0-8 [facility] Comment on above: Order Comment: NEED MORE SPECIMEN Name Collection Type:: Clean-Voided Midstream Result Comment: PERF ORMED BY: [place] [address] PATHOLOGIST ROOFER VINYL COATING LION STANLEY M.D. Performed By: #### A DDONUAPLUS #### [address] Ketones Ql (U) Negative Normal Negative [facility] Comment on above: Order Comment: NEED MORE SPECIMEN Name Collection Type:: Clean-Voided Midstream Performed By: #### A DDONUAPLUS #### [address] Leukocyte esterase Test strip Ql (U) 1+ High Negative [facility] Comment on above: Order Comment: NEED MORE SPECIMEN Name Collection Type:: Clean-Voided Midstream Performed By: #### A DDONUAPLUS #### [place] [address] [place] Nitrite,Urine Negative Normal Negative [facility] Comment on above: Order Comment: NEED MORE SPECIMEN Name Collection Type:: Clean-Voided Midstream Performed By: #### A DDONUAPLUS #### [place] [address] [place] Occult Blood,Urine Negative Normal Negative [facility] Comment on above: Order Comment: NEED MORE SPECIMEN Name Collection Type:: Clean-Voided Midstream Result Comment: PERF ORMED BY: [place] [address] PATHOLOGIST ROOFER VINYL COATING LION STANLEY M.D. Performed By: #### A DDONUAPLUS #### [place] [address] [place] Protein,Urine Negative Normal Negative [facility] Comment on above: Order Comment: NEED MORE SPECIMEN Name Collection Type:: Clean-Voided Midstream Performed By: #### A DDONUAPLUS #### [place] [address] [place] RBC LM.HPF (Urine sed) [#/Area] 0 /[HPF] Normal 0-4 [facility] Comment on above: Order Comment: NEED MORE SPECIMEN Name Collection Type:: Clean-Voided Midstream Performed By: #### A DDONUAPLUS #### [place] [address] [place] Specificy [place],Urine 1.017 Normal 1.001-1.030 [facility] Comment on above: Order Comment: NEED MORE SPECIMEN Name Collection Type:: Clean-Voided Midstream Performed By: #### A DDONUAPLUS #### [place] [address] [place] Squamous Epithelial Cell,Urine 3-4 High 0-2 [facility] Comment on above: Order Comment: NEED MORE SPECIMEN Name Collection Type:: Clean-Voided Midstream Performed By: #### A DDONUAPLUS #### [place] [address] [place] Urobilinogen,Urine Normal Normal Normal [facility] Comment on above: Order Comment: NEED MORE SPECIMEN Name Collection Type:: Clean-Voided Midstream Performed By: #### A DDONUAPLUS #### [address] WBC,Urine 3-4 Normal 0-4 [facility] Comment on above: Order Comment: NEED MORE SPECIMEN Name Collection Type:: Clean-Voided Midstream Performed By: #### A DDONUAPLUS #### [address] Erythrocyte distribution wid th [Ratio] by Automated countOrdered By: Marychuy Wangore on 10-06-2023 Erythrocyte distribution width (RBC) [Ratio] 13.4 % Normal 11.9-15.3 [facility] Comment on above: Performed By: #### C BC, CMP, HCGQNT #### [address] Erythrocytes [#/area] in Uri ne sediment by Automated countOrdered By: Marychuy Kyle on 10-06-2023 RBC Auto (Urine sed) [#/Area] 0-1 [HPF] 0-4 [facility] Erythrocytes [#/volume] in B lood by Automated countOrdered By: Marychuy Wangore on 10-06-2023 RBC (Bld) [#/Vol] 4.08 10*6/uL Normal 3.60-5.00 [facility] Comment on above: Performed By: #### C BC, CMP, HCGQNT #### [address] Glucose [Mass/volume] in Ser um or PlasmaOrdered By: Marychuy Jeronimoimore on 10-06-2023 Glucose [Mass/Vol] 100 mg/dL Normal 70-100 [facility] Comment on above: ADA recommended refe rence rangeRandom Glucose Reference Range is dependent on time and content of last meal. Glucose of more than 200 mg/dL in a nonstressed, ambulatory subject supports the diagnosis of Diabetes Mellitus. Result Comment: [place] om Glucose Reference Range is dependent on time and content of last meal. Glucose of more than 200 mg/dL in a nonstressed, ambulatory subject supports the diagnosis of Diabetes Mellitus. ADA recommended reference range Performed By: #### C BC, CMP, HCGQNT #### [address] HCG,Quantitativeon HCG,Quantitative 2799.00 m[iU]/mL Normal Th e [facility] Comment on above: Result Comment: Appr oximate Approximate hCG Gestational Age Range (mIU/ml) (weeks) 0.2-1 5-50 1-2 50-500 2-3 100-5,000 3-4 500-10,000 4-5 1,000-50,000 5-6 10,000-100,000 6-8 15,000-200,000 8-12 10,000-100,000 PERFORMED BY: [place] [address] PATHOLOGIST ROOFER VINYL COATING LION STANLEY M.D. Performed By: #### C BC, CMP, HCGQNT #### [address] Hematocrit [Volume Fraction] of Blood by Automated countOrdered By: Marychuy Kyle on 10-06-2023 Hematocrit (Bld) [Volume fraction] 36.7 % Normal 34.0-46.4 [facility] Comment on above: Performed By: #### C BC, CMP, HCGQNT #### [address] Hemoglobin [Mass/volume] in BloodOrdered By: Marychuy Kyle on 10-06-2023 Hemoglobin (Bld) [Mass/Vol] 12.6 g/dL Normal 11.8-15.4 [facility] Comment on above: Performed By: #### C BC, CMP, HCGQNT #### [address] Ketones Auto test strip (U) [Mass/Vol]Ordered By: Marychuy Kyle on 10-06-2023 Ketones (U) [Mass/Vol] Negative Negative [facility] Laboratory - UrinalysisOrder ed By: Marychuy Kyle on 10-06-2023 Hyaline casts LM Ql (Urine sed) 0-8 [LPF] 0-8 [facility] Leukocytes [#/area] in Urine sediment by Automated countOrdered By: Marychuy Kyle on 10-06-2023 WBC Auto (Urine sed) [#/Area] 3-4 [HPF] 0-4 [facility] Leukocytes [#/volume] correc inocencia for nucleated erythrocytes in Blood by Automated counOrdered By: Marychuy Kyle on 10-06-2023 WBC corrected for nucl RBC Auto (Bld) [#/Vol] 7.4 10*3/uL 3.8-11.6 [facility] Leukocytes [#/volume] in Blo od by Automated countOrdered By: Marychuy Kyle on 10-06-2023 WBC (Bld) [#/Vol] 7.4 10*3/uL Normal 3.8-11.6 [facility] Comment on above: Performed By: #### C BC, CMP, HCGQNT #### [facility] [address] [place] [address] Lymphocytes [#/volume] in Bl ood by Automated countOrdered By: Marychuy Kyle on 10-06-2023 Lymphocytes (Bld) [#/Vol] 2.8 10*3/uL Normal 1.00-4.8 [facility] Comment on above: Performed By: #### C BC, CMP, HCGQNT #### [facility] [address] [place] [address] [place] Lymphocytes/100 leukocytes i n Blood by Automated countOrdered By: Marychuy Kyle on 10-06-2023 Lymphocytes/100 WBC (Bld) 37.6 % Normal . [facility] Comment on above: Performed By: #### C BC, CMP, HCGQNT #### [facility] [address] [place] [address] [place] MCH [Entitic mass] by Automa inocencia countOrdered By: Marychuy Kyle on 10-06-2023 MCH (RBC) [Entitic mass] 31.0 pg Normal 24.7-34.3 [facility] Comment on above: Performed By: #### C BC, CMP, HCGQNT #### [facility] [address] MCHC Auto (RBC) [Mass/Vol]Or dered By: Marychuy Jeronimoimore on 10-06-2023 MCHC (RBC) [Mass/Vol] 34.4 g/dL 32.0-35.0 [facility] MCV [Entitic volume] by Auto mated countOrdered By: Marychuy Kyle on 10-06-2023 MCV (RBC) [Entitic vol] 90.1 fL Normal 80-100 [facility] Comment on above: Performed By: #### C BC, CMP, HCGQNT #### [facility] [address] [place] [address] Monocyte distribution width [Entitic volume] in Blood by AutomatedOrdered By: Marychuy Kyle on 10-06-2023 Monocyte distribution width Auto (Bld) [Entitic vol] 17.37 % 0.00-20.00 [facility] Neutrophils [#/volume] in Bl ood by Automated countOrdered By: Marychuy Kyle on 10-06-2023 Neutrophils (Bld) [#/Vol] 4.0 10*3/uL Normal 1.8-7.7 [facility] Comment on above: Performed By: #### C BC, CMP, HCGQNT #### [facility] [address] [place] [address] Nitrite Test strip Ql (U)Ord ered By: Marychuy Kyle on 10-06-2023 Nitrite Ql (U) Negative Negative [facility] No Panel InformationOrdered By: Marychuy Kyle on 10-06-2023 Estimated GFR (CKD-EPI) > 60.0 mL/Min [facility] Creatinine Clearance (Chem 180.48 [facility] Nucleated erythrocytes [Pres ence] in Blood by Automated countOrdered By: Marychuy Kyle on 10-06-2023 Nucleated RBC Auto Ql (Bld) 0.2 /100{WBC} 0-0.5 [facility] Platelet mean volume [Entiti c volume] in Blood by Automated countOrdered By: Marychuy Kyle on 10-06-2023 Platelet mean volume (Bld) [Entitic vol] 7.5 fL Normal 6.3-10.7 [facility] Comment on above: Performed By: #### C BC, CMP, HCGQNT #### [address] Platelets [#/volume] in Bloo d by Automated countOrdered By: Marychuy Bullimore on 10-06-2023 Platelets (Bld) [#/Vol] 367 10*3/uL Normal 150-450 [facility] Comment on above: Performed By: #### C BC, CMP, HCGQNT #### [address] Potassium [Moles/volume] in Serum or PlasmaOrdered By: Marychuy Bullimore on 10-06-2023 Potassium [Moles/Vol] 4.1 mmol/L Normal 3.5-5.1 [facility] Comment on above: Performed By: #### C BC, CMP, HCGQNT #### [address] Protein Auto test strip (U) [Mass/Vol]Ordered By: Marychuy Bullimore on 10-06-2023 Protein (U) [Mass/Vol] Negative Negative [facility] Protein [Mass/volume] in Ser um or PlasmaOrdered By: Marychuy Bullimore on 10-06-2023 Protein [Mass/Vol] 7.4 g/dL Normal 6.4-8.9 [facility] Comment on above: Performed By: #### C BC, CMP, HCGQNT #### [address] Serum globulin measurement b y calculation (mass/volume)Ordered By: Marychuy Bullimore on 10-06-2023 Globulin (S) [Mass/Vol] 3.6 g/dL Normal [facility] Comment on above: Performed By: #### C BC, CMP, HCGQNT #### [address] Serum or plasma albumin/glob ulin mass ratioOrdered By: Marychuy Bullimore on 10-06-2023 Albumin/Globulin [Mass ratio] 1.1 {ratio} Normal [facility] Comment on above: Performed By: #### C JOSELYN WRIGHT, HCGQNT #### [address] Serum or plasma anion gap de terminationOrdered By: Marychuy Phaniimore on 10-06-2023 Anion gap [Moles/Vol] 12.6 mmol/L Normal 6.0-15.0 [facility] Comment on above: Performed By: #### C ADRIANA, CMP, HCGQNT #### [address] Sodium [Moles/volume] in Ser um or PlasmaOrdered By: Marychuy Bullimore on 10-06-2023 Sodium [Moles/Vol] 139 mmol/L Normal 136-145 [facility] Comment on above: Performed By: #### C JOSELYN WRIGHT, HCGQNT #### [address] Specific gravity Auto test s trip (U) [Rel density]Ordered By: Marychuymargaux Kyle on 10-06-2023 Specific gravity (U) [Rel density] 1.017 1.001-1.030 [facility] Urea nitrogen [Mass/volume] in Serum or PlasmaOrdered By: Marychuy Wangore on 10-06-2023 Urea nitrogen [Mass/Vol] 7 mg/dL Normal 7-25 [facility] Comment on above: Performed By: #### C JOSELYN WRIGHT, HCGQNT #### [address] Urine clarity by refractomet ry automatedOrdered By: Marychuy Kyle on 10-06-2023 Clarity Refractometry automated (U) Clear Clear [facility] Urine glucose measurement by automated test strip (mass/volume)Ordered By: Marychuy Kyle on 10-06-2023 Glucose Auto test strip (U) [Mass/Vol] Normal mg/dL Normal [facility] Urine hemoglobin detection b y automated test stripOrdered By: Marychuy Kyle on 10-06-2023 Hemoglobin Auto test strip Ql (U) Negative Negative [facility] Urine leukocyte esterase det ection by automated test stripOrdered By: Marychuy Kyle on 10-06-2023 Leukocyte esterase Auto test strip Ql (U) 1+ Negative [facility] Urine pH measurement by auto mated test stripOrdered By: Marychuy Kyle on 10-06-2023 pH (U) 7.0 [pH] Normal 5.0-9.0 [facility] Comment on above: Order Comment: NEED MORE SPECIMEN Name Collection Type:: Clean-Voided Midstream Performed By: #### A DDONUAPLUS #### [facility] [address] Urobilinogen Auto test strip (U) [Mass/Vol]Ordered By: Marychuy Kyle on 10-06-2023 Urobilinogen (U) [Mass/Vol] Normal mg/dL Normal [facility] Basia 09-11-2023 LIZ Telephone (MARTIN) -------- MERTJALEESA Tatum ([id number]) 1990 F Date Time Provider Department 09/11/23 [...] Date Reviewed: 08/20/2023 Reviewed by: Tonya Senior APRN.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 Address: [address] [place] [address] Performed By: #### U NICOT #### [facility] CLIA [id number] [address] [id number] URIN COTININE QUANT <15 Normal [facility] Comment on above: Order Comment: Speci men Type: URINE SPECIMEN Ordering Facility: [facility] Address: [address] [place] [address] Performed By: #### U NICOT #### [facility] CLIA [id number] [address] [place] [id number] URIN NICOTINE QUANT <15 Normal [facility] Comment on above: Order Comment: Speci men Type: URINE SPECIMEN Ordering Facility: [facility] Address: [address] [place] [address] Result Comment: INTE RPRETIVE INFORMATION: Nicotine and Metabolites, Urine, Quantitative Methodology: Quantitative Liquid Chromatography-Tandem Mass Spectrometry Positive cutoff: Nicotine 15 ng/mL Cotinine 15 ng/mL 4-TU-Rodjjily 50 ng/mL Anabasine 5 ng/mL For medical [...] developed and its performance characteristics determined by [facility]. It has not been cleared or approved by the [place] Food and Drug Administration. This test was performed in a CLIA certified laboratory and is intended for clinical purposes. Performed By: [facility] [address] [place], [place] [id number] Seat Nailer: Rex Zuleta MD, PhD CLIA Number: [id number] Performed By: #### U NICOT #### [facility] CLIA [id number] [address] [place] [address] URINE 3 [place] COTININE <50 Normal [facility] Comment on above: Order Comment: Speci men Type: URINE SPECIMEN Ordering Facility: [facility] Address: [address] [place] [address] Performed By: #### U NICOT #### [facility] CLIA [id number] [address] [place] [address] TOXICOLOGY SCREEN, ROUTINE U RINEon 09-08-2023 Amphetamines Confirm (U) [Mass/Vol] Negative Normal Negative [facility] Comment on above: Order Comment: Speci men Type: URINE SPECIMEN Ordering Facility: [facility] Address: [address] [place] [address] Result Comment: Cuto ff threshold at 1000 ng/mL. Performed By: #### U TOX2 #### [facility] CLIA [id number] [address] [place] [address] [place] BARBITURATES, URINE Negative Normal Negative [facility] Comment on above: Order Comment: Speci men Type: URINE SPECIMEN Ordering Facility: [facility] Address: [address] [place] [address] Result Comment: Cuto ff threshold at 200 ng/mL. Performed By: #### U TOX2 #### [facility] CLIA [id number] [address] [place] [address] [place] BENZODIAZEPINES, UR Negative Normal Negative [facility] Comment on above: Order Comment: Speci men Type: URINE SPECIMEN Ordering Facility: [facility] Address: [address] [place] [address] Result Comment: Cuto ff threshold at 200 ng/mL. Performed By: #### U TOX2 #### [facility] CLIA [id number] [address] [place] [address] [place] Cannabinoids Screen Ql (U) Negative Normal Negative [facility] Comment on above: Order Comment: Speci men Type: URINE SPECIMEN Ordering Facility: [facility] Address: [address] [place] [address] Result Comment: Cuto ff threshold at 50 ng/mL. Performed By: #### U TOX2 #### [facility] CLIA [id number] [address] [place] [address] [place] Cocaine Ql (U) Negative Normal Negative [facility] Comment on above: Order Comment: Speci men Type: URINE SPECIMEN Ordering Facility: [facility] Address: [address] [place] [address] Result Comment: Cuto ff threshold at 300 ng/mL. Performed By: #### U TOX2 #### [facility] CLIA [id number] [address] [place] [address] [place] Ethanol (U) [Mass/Vol] <11 Normal <11 [facility] Comment on above: Order Comment: Speci men Type: URINE SPECIMEN Ordering Facility: [facility] Address: [address] [place] [address] Performed By: #### U TOX2 #### [facility] CLIA [id number] [address] [place] [address] [place] Opiates Screen Ql (U) Negative Normal Negative [facility] Comment on above: Order Comment: Speci men Type: URINE SPECIMEN Ordering Facility: [facility] Address: [address] [place] [address] Result Comment: Cuto ff threshold at 300 ng/mL. Performed By: #### U TOX2 #### [facility] CLIA [id number] [address] [place] [address] [place] oxyCODONE cutoff Screen (U) [Mass/Vol] Negative Normal Negative [facility] Comment on above: Order Comment: Speci men Type: URINE SPECIMEN Ordering Facility: [facility] Address: [address] [place] [address] Result Comment: Cuto ff threshold at 100 ng/mL. Performed By: #### U TOX2 #### [facility] CLIA [id number] [address] [place] [address] [place] Phencyclidine Ql (U) Negative Normal Negative [facility] Comment on above: Order Comment: Speci men Type: URINE SPECIMEN Ordering Facility: [facility] Address: [address] [place] [address] Result Comment: Cuto ff threshold at 25 ng/mL. Performed By: #### U TOX2 #### [facility] CLIA [id number] [address] [place] [address] [place] 25(OH)D3 SerPl-mCncon 2023 25-hydroxyvitamin D3 [Mass/Vol] 11.9 ng/mL Low 31.0-80.0 [facility] Comment on above: Order Comment: Speci men Type: BLOOD SPECIMEN Ordering Facility: [facility] Address: [address] [place] [address] Performed By: #### 2 276-4, 2132-01, 2283-12 #### [facility] CLIA [id number] [address] [place] [address] [place] CBC W Auto Differential pane l (Bld)on 09-05-2023 Basophils (Bld) [#/Vol] 10*3/uL Normal <0.11 [facility] Comment on above: Order Comment: Speci men Type: BLOOD SPECIMEN Ordering Facility: [facility] Address: [address] [place] [address] Performed By: #### 2 276-4, 2132-01, 2283-12 #### [facility] CLIA [id number] [address] [place] [address] [place] Basophils/100 WBC (Bld) 0.3 % Normal [facility] Comment on above: Order Comment: Speci men Type: BLOOD SPECIMEN Ordering Facility: [facility] Address: [address] [place] [address] Performed By: #### 2 276-4, 2132-01, 2283-12 #### [facility] CLIA [id number] [address] [place] [address] [place] Differential cell count method Nom (Bld) Auto Normal [facility] Comment on above: Order Comment: Speci men Type: BLOOD SPECIMEN Ordering Facility: [facility] Address: [address] [place] [address] Performed By: #### 2 276-4, 2132-01, 2283-12 #### [facility] CLIA [id number] [address] [place] [address] [place] Eosinophils (Bld) [#/Vol] 0.09 10*3/uL Normal <0.46 [facility] Comment on above: Order Comment: Speci men Type: BLOOD SPECIMEN Ordering Facility: [facility] Address: [address] [place] [address] Performed By: #### 2 276-4, 2132-01, 2283-12 #### [facility] CLIA [id number] [address] [place] [address] [place] Eosinophils/100 WBC (Bld) 1.3 % Normal [facility] Comment on above: Order Comment: Speci men Type: BLOOD SPECIMEN Ordering Facility: [facility] Address: [address] [place] [address] Performed By: #### 2 276-4, 2132-01, 2283-12 #### [facility] CLIA [id number] [address] [place] [address] [place] Erythrocyte distribution width (RBC) [Ratio] 12.6 % Normal 11.5-15.0 [facility] Comment on above: Order Comment: Speci men Type: BLOOD SPECIMEN Ordering Facility: [facility] Address: [address] [place] [address] Performed By: #### 2 276-4, 2132-01, 2283-12 #### [facility] CLIA [id number] [address] [place] [address] [place] Hematocrit (Bld) [Volume fraction] 38.0 % Normal 36.0-46.0 [facility] Comment on above: Order Comment: Speci men Type: BLOOD SPECIMEN Ordering Facility: [facility] Address: [address] [place] [address] Performed By: #### 2 276-4, 2132-01, 2283-12 #### [facility] CLIA [id number] [address] [place] [address] [place] Hemoglobin (Bld) [Mass/Vol] 12.8 g/dL Normal 11.5-15.5 [facility] Comment on above: Order Comment: Speci men Type: BLOOD SPECIMEN Ordering Facility: [facility] Address: [address] [place] [address] Performed By: #### 2 276-4, 2132-01, 2283-12 #### [facility] CLIA [id number] [address] [place] [address] [place] Immature granulocytes (Bld) [#/Vol] 10*3/uL Normal <0.10 [facility] Comment on above: Order Comment: Speci men Type: BLOOD SPECIMEN Ordering Facility: [facility] Address: [address] [place] [address] Performed By: #### 2 276-4, 2132-01, 2283-12 #### [facility] CLIA [id number] [address] [place] [address] [place] Immature granulocytes/100 WBC (Bld) 0.1 % Normal [facility] Comment on above: Order Comment: Speci men Type: BLOOD SPECIMEN Ordering Facility: [facility] Address: [address] [place] [address] Performed By: #### 2 276-4, 2132-01, 2283-12 #### [facility] CLIA [id number] [address] [place] [address] [place] Lymphocytes (Bld) [#/Vol] 3.49 10*3/uL Normal 1.00-4.00 [facility] Comment on above: Order Comment: Speci men Type: BLOOD SPECIMEN Ordering Facility: [facility] Address: [address] [place] [address] Performed By: #### 2 276-4, 2132-01, 2283-12 #### [facility] CLIA [id number] [address] [place] [address] [place] Lymphocytes/100 WBC (Bld) 48.6 % Normal [facility] Comment on above: Order Comment: Speci men Type: BLOOD SPECIMEN Ordering Facility: [facility] Address: [address] [place] [address] Performed By: #### 2 276-4, 2132-01, 2283-12 #### [facility] CLIA [id number] [address] [place] [address] [place] MCH (RBC) [Entitic mass] 30.0 pg Normal 26.0-34.0 [facility] Comment on above: Order Comment: Speci men Type: BLOOD SPECIMEN Ordering Facility: [facility] Address: [address] [place] [address] Performed By: #### 2 276-4, 2132-01, 2283-12 #### [facility] CLIA [id number] [address] [place] [address] [place] MCHC (RBC) [Mass/Vol] 33.7 g/dL Normal 30.5-36.0 [facility] Comment on above: Order Comment: Speci men Type: BLOOD SPECIMEN [facility]ing Facility: [facility] Address: [address] [place] [address] Performed By: #### 2 276-4, 2132-01, 2283-12 #### [facility] CLIA [id number] [address] [place] [address] [place] MCV (RBC) [Entitic vol] 89.2 fL Normal 80.0-100.0 [facility] Comment on above: Order Comment: Speci men Type: BLOOD SPECIMEN [facility] Facility: [facility] Address: [address] [place] [address] Performed By: #### 2 276-4, 2132-01, 2283-12 #### [facility] CLIA [id number] [address] [place] [address] [place] Monocytes (Bld) [#/Vol] 0.48 10*3/uL Normal <0.87 [facility] Comment on above: Order Comment: Speci men Type: BLOOD SPECIMEN [facility] Facility: [facility] Address: [address] [place] [address] Performed By: #### 2 276-4, 2132-01, 2283-12 #### [facility] CLIA [id number] [address] [place] [address] [place] Monocytes/100 WBC (Bld) 6.7 % Normal [facility] Comment on above: Order Comment: Speci men Type: BLOOD SPECIMEN [facility]ing Facility: [facility] Address: [address] [place] [address] Performed By: #### 2 276-4, 2132-01, 2283-12 #### [facility] CLIA [id number] [address] [place] [address] [place] Neutrophils (Bld) [#/Vol] 3.09 10*3/uL Normal 1.45-7.50 [facility] Comment on above: Order Comment: Speci men Type: BLOOD SPECIMEN [facility] Facility: [facility] Address: [address] [place] [address] Performed By: #### 2 276-4, 2132-01, 2283-12 #### [facility] CLIA [id number] [address] [place] [address] [place] Neutrophils/100 WBC (Bld) 43.0 % Normal [facility] Comment on above: Order Comment: Speci men Type: BLOOD SPECIMEN [facility]ing Facility: [facility] Address: [address] [place] [address] Performed By: #### 2 276-4, 2132-01, 2283-12 #### [facility] CLIA [id number] [address] [place] [address] [place] Nucleated RBC (Bld) [#/Vol] 10*3/uL Normal <0.01 [facility] Comment on above: Order Comment: Speci men Type: BLOOD SPECIMEN [facility] Facility: [facility] Address: [address] [place] [address] Performed By: #### 2 276-4, 2132-01, 2283-12 #### [facility] CLIA [id number] [address] [place] [address] [place] Nucleated RBC/100 WBC (Bld) [Ratio] 0.0 /100 WBC Normal [facility] Comment on above: Order Comment: Speci men Type: BLOOD SPECIMEN [facility]ing Facility: [facility] Address: [address] [place] [address] Performed By: #### 2 276-4, 2132-01, 2283-12 #### [facility] CLIA [id number] [address] [place] [address] [place] Platelet mean volume (Bld) [Entitic vol] 9.2 fL Normal 9.0-12.7 [facility] Comment on above: Order Comment: Speci men Type: BLOOD SPECIMEN [facility]ing Facility: [facility] Address: [address] [place] [address] Performed By: #### 2 276-4, 2132-01, 2283-12 #### [facility] CLIA [id number] [address] [place] [address] [place] Platelets (Bld) [#/Vol] 361 10*3/uL Normal 150-400 [facility] Comment on above: Order Comment: Speci men Type: BLOOD SPECIMEN [facility]ing Facility: [facility] Address: [address] [place] [address] Performed By: #### 2 276-4, 2131-9, 8 #### [facility] CLIA [id number] [address] [place] [address] [place] RBC (Bld) [#/Vol] 4.26 10*6/uL Normal 3.90-5.20 [facility] Comment on above: Order Comment: Speci men Type: BLOOD SPECIMEN [facility]ing Facility[facility] Address: [address] [place] [address] Performed By: #### 2 276-4, 9, 8 #### [facility] CLIA [id number] [address] [place] [address] [place] WBC (Bld) [#/Vol] 7.18 10*3/uL Normal 3.70-11.00 [facility] Comment on above: Order Comment: Speci men Type: BLOOD SPECIMEN [facility]ing Facility: [facility] Address: [address] [place] [address] Performed By: #### 2 276-4, 9, 2283-12 #### [facility] CLIA [id number] [address] [place] [address] [place] Comprehensive metabolic 2000 panelon 09-05-2023 Albumin [Mass/Vol] 4.0 g/dL Normal 3.9-4.9 [facility] Comment on above: Order Comment: Speci men Type: BLOOD SPECIMEN [facility]ing Facility[facility] Address: [address] [place] [address] Performed By: #### 2 4323-8 #### [facility] CLIA [id number] [address] [place] [address] ALP [Catalytic activity/Vol] 91 U/L Normal 34-123 [facility] Comment on above: Order Comment: Speci men Type: BLOOD SPECIMEN [facility] Facility[facility] Address: [address] [place] [address] Performed By: #### 2 4323-8 #### [facility] CLIA [id number] [address] [place] [address] ALT [Catalytic activity/Vol] 15 U/L Normal 7-38 [facility] Comment on above: Order Comment: Speci men Type: BLOOD SPECIMEN Ordering Facility: [facility] Address: [address] [place] [address] Performed By: #### 2 4323-8 #### [facility] CLIA [id number] [address] [place] [address] Anion gap [Moles/Vol] 10 mmol/L Normal 9-18 [facility] Comment on above: Order Comment: Speci men Type: BLOOD SPECIMEN [facility]ing Facility: [facility] Address: [address] [place] [address] Performed By: #### 2 4323-8 #### [facility] CLIA [id number] [address] [place] [address] AST [Catalytic activity/Vol] 13 U/L Normal 13-35 [facility] Comment on above: Order Comment: Speci men Type: BLOOD SPECIMEN Ordering Facility: [facility] Address: [address] [place], [place] [address] Performed By: #### 2 4323-8 #### [facility] CLIA [id number] [address] [place] [address] Bilirubin [Mass/Vol] 0.3 mg/dL Normal 0.2-1.3 [facility] Comment on above: Order Comment: Speci men Type: BLOOD SPECIMEN [facility]ing Facility: [facility] Address: [address] [place] [address] Performed By: #### 2 4323-8 #### [facility] CLIA [id number] [address] [place] [address] Calcium [Mass/Vol] 9.5 mg/dL Normal 8.5-10.2 [facility] Comment on above: Order Comment: Speci men Type: BLOOD SPECIMEN [facility]ing Facility: [facility] Address: [address] [place] [address] Performed By: #### 2 4323-8 #### [facility] CLIA [id number] [address] [place] [address] Chloride [Moles/Vol] 106 mmol/L High 97-105 [facility] Comment on above: Order Comment: Speci men Type: BLOOD SPECIMEN [facility]ing Facility[facility] Address: [address] [place] [address] Performed By: #### 2 4323-8 #### [facility] CLIA [id number] [address] [place] [address] CO2 [Moles/Vol] 26 mmol/L Normal 22-30 [facility] Comment on above: Order Comment: Speci men Type: BLOOD SPECIMEN [facility]ing Facility: [facility] Address: [address] [place] [address] Performed By: #### 2 4323-8 #### [facility] CLIA [id number] [address] [place] [address] Creatinine [Mass/Vol] 0.75 mg/dL Normal 0.58-0.96 [facility] Comment on above: Order Comment: Speci men Type: BLOOD SPECIMEN [facility]ing Facility: [facility] Address: [address] [place] [address] Performed By: #### 2 4323-8 #### [facility] CLIA [id number] [address] [place] [address] Creatinine and Glomerular filtration rate.predicted panel (S/P/Bld) 109 mL/min/1.73m??? Normal >=60 [facility] Comment on above: Order Comment: Speci men Type: BLOOD SPECIMEN [facility]ing Facility: [facility] Address: [address] [place] [address] Result Comment: Stephani mated Glomerular Filtration Rate [...] GFR. Performed By: #### 2 4323-8 #### [facility] CLIA [id number] [address] [place] [address] Glucose [Mass/Vol] 104 mg/dL High 74-99 [facility] Comment on above: Order Comment: Laury bradshaw Type: BLOOD SPECIMEN Ordering Facility: [facility] Address: [address] [place] [address] Result Comment: The [place] Diabetes Association (ADA) provides guidance for cutoff [...] Standards of Medical Care in Diabetes 2016, [place] Diabetes Association. Diabetes Care. 2016.39(Suppl 1). Performed By: #### 2 4323-8 #### [facility] CLIA [id number] [address] [place] [address] Potassium [Moles/Vol] 4.2 mmol/L Normal 3.7-5.1 [facility] Comment on above: Order Comment: Laury bradshaw Type: BLOOD SPECIMEN [facility]ing Facility: [facility] Address: [address] [place] [address] Performed By: #### 2 4323-8 #### [facility] CLIA [id number] [address] [place] [address] Protein [Mass/Vol] 7.4 g/dL Normal 6.3-8.0 [facility] Comment on above: Order Comment: Laury bradshaw Type: BLOOD SPECIMEN Ordering Facility: [facility] Address: [address] [place] [address] Performed By: #### 2 4323-8 #### [facility] CLIA [id number] [address] [place] [address] Sodium [Moles/Vol] 142 mmol/L Normal 136-144 [facility] Comment on above: Order Comment: Speci men Type: BLOOD SPECIMEN [facility] Facility[facility] Address: [address] [place] [address] Performed By: #### 2 4323-8 #### [facility] CLIA [id number] [address] [place] [address] Urea nitrogen [Mass/Vol] 12 mg/dL Normal 7-21 [facility] Comment on above: Order Comment: Speci men Type: BLOOD SPECIMEN [facility]ing Facility: [facility] Address: [address] [place] [address] Performed By: #### 2 4323-8 #### [facility] CLIA [id number] [address] [place] [address] Ferritin SerPl-mCncon 2023 Ferritin [Mass/Vol] 86.7 ng/mL Normal 14.7-205.1 [facility] Comment on above: Order Comment: Speci men Type: BLOOD SPECIMEN [facility]ing Facility: [facility] Address: [address] [place] [address] Performed By: #### 2 276-4, 9, 8 #### [facility] CLIA [id number] [address] [place] [address] [place] Folate SerPl-mCncon 09-05-19 Folate [Mass/Vol] 12.0 ng/mL Normal >4.7 [facility] Comment on above: Order Comment: Speci men Type: BLOOD SPECIMEN [facility]ing Facility[facility] Address: [address] [place] [address] Performed By: #### 2 276-4, 9, 8 #### [facility] CLIA [id number] [address] [place] [address] [place] H. pylori IgG IA Qlon 2023 H. PYLORI IGG, QUAL Negative Normal Negative [facility] Comment on above: Order Comment: Laury bradshaw Type: BLOOD SPECIMEN [facility]ing Facility: [facility] Address: [address] [place] [address] Result Comment: Cash ot exclude H. pylori infection if the specimen collected 3-4 weeks after onset of symptoms. Performed By: #### 2 276-4, 2132-9, 2284-8 #### [facility] CLIA [id number] [address] [place] [address] [place] HbA1c (Bld)on 09-05-2023 Average glucose Estimated from glycated hemoglobin (Bld) [Mass/Vol] 108 mg/dL Normal [facility] Comment on above: Order Comment: Laury bradshaw Type: BLOOD SPECIMEN [facility]ing Facility: [facility] Address: [address] [place] [address] Result Comment: eAG: (Estimated average glucose) is a calculated value from HgbA1c and is in home sales representative of the average blood glucose level in the last 2-3 month period. Performed By: #### 5 5454-3 #### [facility] CLIA [id number] [address] [place] [address] [place] HbA1c (Bld) [Mass fraction] 5.4 % Normal 4.3-5.6 [facility] Comment on above: Order Comment: Laury bradshaw Type: BLOOD SPECIMEN [facility]ing Facility: [facility] Address: [address] [place] [address] Result Comment: [place] Diabetes Association guidelines indicate that patients with HgbA1c in the range 5.7-6.4% are at increased risk for development of diabetes, and intervention by lifestyle modification may be beneficial. HgbA1c greater or equal to 6.5% is considered diagnostic of diabetes. Performed By: #### 5 5454-3 #### [facility] CLIA [id number] [address] [place] [address] [place] Iron and Iron binding capaci ty panelon 09-05-2023 Iron [Mass/Vol] 94 ug/dL Normal 41-186 [facility] Comment on above: Order Comment: Speci men Type: BLOOD SPECIMEN [facility]ing Facility: [facility] Address: [address] [place] [address] Performed By: #### 5 0190-8, 3016-3, 92427-8 #### [facility] CLIA [id number] [address] [place] [address] [place] #### 82348-4 #### [facility] CLIA [id number] [address] [place] [address] [place] [facility] CLIA [id number] [address] [place], [place] [id number] Iron binding capacity [Mass/Vol] 310 ug/dL Normal 232-386 [facility] Comment on above: Order Comment: Speci men Type: BLOOD SPECIMEN [facility]ing Facility[facility] Address: [address] [place] [address] Performed By: #### 5 0190-8, 6-3, 21163-8 #### [facility] CLIA [id number] [address] [place] [address] [place] #### 11066-7 #### [facility] CLIA [id number] [address] [place] [address] [place] [facility] CLIA [id number] [address] [place] [address] Iron/TIBC [Molar ratio] 30.3 % Normal 15.0-57.0 [facility] Comment on above: Order Comment: Speci men Type: BLOOD SPECIMEN [facility]ing Facility[facility] Address: [address] [place] [address] Performed By: #### 5 0190-8, 3016-3, 61546-7 #### [facility] CLIA [id number] [address] [place] [address] [place] #### 73094-6 #### [facility] CLIA [id number] [address] [place] [address] [place] [facility] CLIA [id number] [address] [place] [address]55 Lipid 1996 panelon 4 Cholesterol [Mass/Vol] 179 mg/dL Normal <200 [facility] Comment on above: Order Comment: Laury men Type: BLOOD SPECIMEN [facility]ing Facility: [facility] Address: [address] [place] [address] Result Comment: <200 mg/dL, Desirable 200-239 mg/dL, Borderline high >239 mg/dL, High Performed By: #### 2 276-4, 2132-01, 2283-12 #### [facility] CLIA [id number] [address] [place] [address] [place] Cholesterol in HDL [Mass/Vol] 45 mg/dL Normal >39 [facility] Comment on above: Order Comment: Laury bradshaw Type: BLOOD SPECIMEN [facility]ing Facility: [facility] Address: [address] [place] [address] Result Comment: 40-5 9 mg/dL, Acceptable >59 mg/dL, High: Negative risk factor for coronary heart disease <40 mg/dL, Low: Positive risk factor for coronary heart disease Performed By: #### 2 276-4, 2132-01, 2283-12 #### [facility] CLIA [id number] [address] [place] [address] [place] Cholesterol in LDL [Mass/Vol] 119 mg/dL High <100 [facility] Comment on above: Order Comment: Laury bradshaw Type: BLOOD SPECIMEN [facility]ing Facility[facility] Address: [address] [place] [address] Result Comment: <100 mg/dL, Optimal 100-129 mg/dL, Near optimal/above optimal 130-159 mg/dL, Borderline high 160-189 mg/dL, High >189 mg/dL, Very high Secondary prevention optimal LDL Cholesterol levels are recommended to be < 70 mg/dL Performed By: #### 2 276-4, 2132-01, 2283-12 #### [facility] CLIA [id number] [address] [place] [address] [place] Cholesterol in LDL/Cholesterol in HDL [Mass ratio] 2.64 {ratio} High <2.54 [facility] Comment on above: Order Comment: Laury bradshaw Type: BLOOD SPECIMEN [facility]ing Facility: [facility] Address: [address] [place] [address] Result Comment: Refe sandrace: 1. National Cholesterol Education Program ATP III Guideline At-A-Glance Quick Desk Reference: National Heart, Lung, and Blood [place]. National Institutes of Health. 2001: NIH Publication No. 01-3305. 2. An International Atherosclerosis Society position paper: global recommendations for the management of dyslipidemia: executive summary, Atherosclerosis. 2014: 232(2):410-413. Performed By: #### 2 276-4, 2132-01, 2283-12 #### [facility] CLIA [id number] [address] [place] [address] [place] Cholesterol in VLDL [Mass/Vol] 15 mg/dL Normal <30 [facility] Comment on above: Order Comment: Laury bradshaw Type: BLOOD SPECIMEN [facility] Facility[facility] Address: [address] [place] [address] Performed By: #### 2 276-4, 2132-01, 2283-12 #### [facility] CLIA [id number] [address] [place] [address] [place] Cholesterol non HDL [Mass/Vol] 134 mg/dL High <130 [facility] Comment on above: Order Comment: Laury bradshaw Type: BLOOD SPECIMEN [facility]ing Facility: [facility] Address: [address] [place] [address] Result Comment: <130 mg/dL, Optimal 130-159 mg/dL, Near optimal/above optimal 160-189 mg/dL, Borderline high 190-219 mg/dL, High >219 mg/dL, Very high Secondary prevention optimal non HDL Cholesterol levels are recommended to be <100 mg/dL Performed By: #### 2 276-4, 9, 2283-12 #### [facility] CLIA [id number] [address] [place] [address] [place] Cholesterol.total/Cho lesterol in HDL [Mass ratio] 3.98 {ratio} Normal <5.10 [facility] Comment on above: Order Comment: Speci men Type: BLOOD SPECIMEN [facility] Facility[facility] Address: [address] [place] [address] Performed By: #### 2 276-4, 9, 2283-12 #### [facility] CLIA [id number] [address] [place] [address] [place] FASTING TIME 12 hrs Normal [facility] Comment on above: Order Comment: Speci men Type: BLOOD SPECIMEN [facility] Facility[facility] Address: [address] [place] [address] Performed By: #### 2 276-4, 2132-01, 2283-12 #### [facility] CLIA [id number] [address] [place] [address] [place] Triglyceride [Mass/Vol] 74 mg/dL Normal <150 [facility] Comment on above: Order Comment: Speci men Type: BLOOD SPECIMEN [facility] Facility[facility] Address: [address] [place] [address] Result Comment: <150 mg/dL, Normal 150-199 mg/dL, Borderline high 200-499 mg/dL, High >499 mg/dL, Very high Performed By: #### 2 276-4, 9, 2283-12 #### [facility] CLIA [id number] [address] [place] [address] [place] NT-proBNP [facility] 09-04 Natriuretic peptide.B prohormone N-Terminal [Mass/Vol] 48 pg/mL Normal <125 [facility] Comment on above: Order Comment: Speci men Type: BLOOD SPECIMEN [facility] Facility[facility] Address: [address] [place] [address] Performed By: #### 2 276-4, 9, 8 #### [facility] CLIA [id number] [address] [place] [address] [place] TSH SerPl-aCncon 09-05-2023 TSH Qn 6.440 m[IU]/L High 0.270-4.200 [facility] Comment on above: Order Comment: Laury bradshaw Type: BLOOD SPECIMEN [facility] Facility[facility] Address: [address] [place] [address] Result Comment: If t he patient is , TSH reference range varies by gestational period: First Trimester (weeks 9-12): 0.180-2.990 mIU/L Second Trimester: 0.110-3.980 mIU/L Third Trimester: 0.480-4.710 mIU/L Seth Crews et al. A Practical Approach for the Verifications and Determination of Site- and Trimester-Specific Reference Intervals for Thyroid Function tests in . Thyroid, 2019:29:3:412-420. Zhang E, et al. 2017 Guidelines of the [place] Thyroid Association for the Diagnosis and Management of Thyroid Disease during and the . Thyroid, 2017:27:3:315-389. Performed By: #### 2 276-4, 9, 8 #### [facility] CLIA [id number] [address] [place], [place] [id number] [place] VITAMIN B1 (THIAMINE), WHOLE BLOODon 09-05-2023 Thiamine (Bld) [Moles/Vol] 179.2 nmol/L Normal 84.3-213.3 [facility] Comment on above: Order Comment: Laury bradshaw Type: BLOOD SPECIMEN [facility] Address: [address] [place] [address] Result Comment: This assay measures the concentration of thiamine diphosphate (TDP), the primary active form of vitamin B1. Approximately 90 percent of vitamin B1 present in whole blood is TDP. Thiamine and thiamine monophosphate, which comprise the remaining 10 percent, are not measured. This test was developed and its performance characteristics determined by [facility]'s Kevin [facility] [place] ([facility] It has not been cleared or approved by the FDA. -[facility] is regulated under CLIA as qualified to perform high-complexity testing. This test is used for clinical purposes. It should not be regarded as investigational or for research. Performed By: #### B 1WB #### [facility] CLIA [id number] [address] [place] [address] [place] Vit B12 SerPl-ncon 09-04- 024 Cobalamin (Vitamin B12) [Mass/Vol] 612 pg/mL Normal 232-1245 [facility] Comment on above: Order Comment: Speci men Type: BLOOD SPECIMEN [facility] Address: [address] [place] [address] Performed By: #### 2 276-4, 2132-9, 2284-8 #### [facility] CLIA [id number] [address] [place] [address] [place] Glucose - FINGER STICKon Glucose [Mass/Vol] 5.4 mg/dL Box Other PAP ACOG PANEL 2: 30 to 65on 06-10-2022 . . Normal [facility] Comment on above: Result Comment: Perf ormed at: WB Performed By: #### 4 [id number] #### [facility] [address] [place] [address] Dr. Sachin Coates Age Gdln ACOG Testing 30-65 Normal [facility] Comment on above: Performed By: #### 4 [id number] #### [facility] [address] [place] [address] Dr. Sachin Coates DIAGNOSIS: Comment Normal [facility] Comment on above: Result Comment: NEGA TIVE FOR INTRAEPITHELIAL LESION OR MALIGNANCY. CELLULAR CHANGES ASSOCIATED WITH INFLAMMATION ARE PRESENT. THIS SPECIMEN WAS RESCREENED PART OF OUR FRONT END DEVELOPER DESIGNER PROGRAM. Performed at: WB Performed By: #### [id number] #### [facility] [address] [place] [address] Dr. Sachin Coates HPV Aptima Negative Normal Negative [facility] Comment on above: Result Comment: This nucleic acid amplification test detects fourteen high-risk HPV types (16,18,31,33,35,39,45,51,52,56,58,59,66,68) without differentiation. Performed at: =G Performed By: #### [id number] #### [facility] [address] [address] [address] Sachin Coates HPV Genotype Reflex Comment Normal [facility] Comment on above: Result Comment: Crit eria not met, HPV Genotype not performed. Performed at: WB Performed By: #### [id number] #### [facility] [address] [place] [address] Dr. Sachin Coates Methodology: Comment Normal [facility] Comment on above: Result Comment: This liquid based ThinPrep(R) pap test was screened with the use of an image guided system. Performed at: WB Performed By: #### [id number] #### [facility] [address] [place] [address] Dr. Sachin Coates Note: Comment Normal [facility] Comment on above: Result Comment: The Pap smear is a screening test designed to aid in the detection of premalignant and malignant conditions of the uterine cervix. It is not a diagnostic procedure and should not be used as the sole means of detecting cervical cancer. Both false-positive and false-negative reports do occur. . Performed at: WB Performed By: #### [id number] #### [facility] [address] [place] [address] Dr. Sachin Coates Performed by: Comment Normal [facility] Comment on above: Result Comment: Peyton Beverly, Field Ring Assembler (ASCP) Performed at: WB Performed By: #### [id number] #### [facility] [address] [place] [address] Dr. Sachin Coates QC reviewed by: Comment Normal [facility] Comment on above: Result Comment: Cielo Cochran, Supervisory Field Ring Assembler (ASCP) Performed at: WB Performed By: #### 4 [id number] #### [facility] [address] [address] [address] Sachin Coates Specimen adequacy: Comment Normal [facility] Comment on above: Result Comment: Sati sfactory for evaluation. Endocervical and/or squamous metaplastic cells (endocervical component) are present. Performed at: WB Performed By: #### [id number] #### [facility] [address] [address] [address] Sachin Coates COVID-19 SOFIAOrdered By: Dario To on 12-02-2021 SARS-CoV+SARS-CoV-2 (COVID-19) Ag IA.rapid Ql (Resp) Negative Negative [facility] Comment on above: This is a duplicate Zuleyma SARS Antigen (PAMELLA) result to be used for statistical tracking purpose only. No Panel InformationOrdered By: Ck To on 12-02-2021 SARS Antigen (LFIA) [facility] Chart Updateon 08-08-2020 Chart Update Chart Update Called patient back to discuss. confirmed appointment for next week. Message Recorded as Task Date: 08/08/2020 08:25 AM, Created By: Taylor Hernandez Task Name: Call Back Assigned To: Ncikie Littlejohn Regarding Patient: JALEESA ARRIETA, Status: In [...] Aug 08 2020 10:18AM EST (Author) Normal [employer] PROFESSOR OF LAW - Procedure Visiton 0 07-10-2020 PROFESSOR OF LAW - Procedure Visit Chief Complaint IUI Active [...] Estr adiol measurement is performed using the [employer] Access Sensitive Estradiol Immunoassay. Estradiol testing is performed using a different test methodology at [facility] than other [facility]. Direct result comparison should only be made within the same method. REF VALUES EARLY FOLLICULAR 22-115 MID FOLLICULAR 25-115 OVULATORY PEAK 32-517 MID LUTEAL 37-246 POSTMENOPAUSE <15- 25 MALE <15- 32 Performed By: #### G [facility] #### [facility] [address] [place] [address] Estradiol, Serumon E2 [Mass/Vol] 186 pg/mL -OBGYN-[facility] an 310 IVF Work Phone: Comment on above: Estradiol measuremen t is performed using the [employer]irits Access Sensitive Estradiol Immunoassay. Estradiol testing is performed using a different test methodology at [facility] than other [facility]. Direct result comparison should only [...] performed using a different test methodology at [facility] than other [facility]. Direct result comparison should only be made within the same method. REF VALUES FOLLICULAR PHASE 1.5-10.0 MID-CYCLE 13.0-72.0 LUTEAL PHASE 0.5-13.0 MENOPAUSE 15.0-65.0 PREPUBERTY 0- 3.0 CHILDREN 0- 6.0 ADULT MALE 1.0- 9.0 Performed By: #### G [facility] #### [facility] [address] [place] [address] Luteinizing Hormone, Serumon 07-08-2020 Lutropin Qn 9.5 {IU/L} PG-PIRCF-Dvoz an 310 IVF Work Phone: Comment on above: Luteinizing Hormone [LH] is performed using the [employer]ir[employer] Access Immunoassay. LH testing is performed using a different test methodology at [facility] than other [facility]. Direct result comparison should only be made within the same method.REF VALUESFOLLICULAR PHASE 1.5-10.0MID-CYCLE 13.0-72.0LUTEAL PHASE 0.5-13.0MENOPAUSE 15.0-65.0PREPUBERTY 0- 3.0CHILDREN 0- 6.0ADULT MALE 1.0- 9.0 TYPE + SCREENon 07-06-2020 ABO TYPE A Normal [facility] Comment on above: Performed By: #### T +S #### [facility] [address] [place] [address] RH TYPE Positive Normal [facility] Comment on above: Performed By: #### T +S #### [facility] [address] [place] [address] ESTRADIOLon 07-05-2020 ESTRADIOL 58 pg/mL Normal [facility] Comment on above: Result Comment: Estr adiol measurement is performed using the [employer] Access Sensitive Estradiol Immunoassay. Estradiol testing is performed using a different test methodology at [facility] than other [facility]. Direct result comparison should only be made within the same method. REF VALUES EARLY FOLLICULAR 22-115 MID FOLLICULAR 25-115 OVULATORY PEAK 32-517 MID LUTEAL 37-246 POSTMENOPAUSE <15- 25 MALE <15- 32 Performed By: #### G [facility] #### [facility] [address] [place] [address] Estradiol, Serumon 1 E2 [Mass/Vol] 58 pg/mL MG-OBGYN-Ri sm an 310 IVF Work Phone: Comment on above: Estradiol measuremen t is performed using the [employer] Access Sensitive Estradiol Immunoassay. Estradiol testing is performed using a different test methodology at [facility] than other [facility]. Direct result comparison should only be made within the same method.REF VALUESEARLY FOLLICULAR 22-115MID FOLLICULAR 25-115OVULATORY PEAK 32-517MID LUTEAL 37-246POSTMENOPAUSE <15- 25MALE <15- 32 Hematologyon 07-05-2020 ABO group Nom (Bld) A MG-FULL STACK PYTHON DEVELOPER-Rism an 310 IVF Work Phone: Blood group antibody screen Ql Negative EE-OKGXV-Bbip an 310 IVF Work Phone: Rh immune globulin screen (Bld) [Interp] Positive MG-OBGYN-R ism an 310 IVF Work Phone: LUTEINIZING HORMONEon 2020 LUTEINIZING HORMONE 9.2 IU/L Normal [facility] Comment on above: Result Comment: Lute inizing Hormone [LH] is performed using the [employer] Access Immunoassay. LH testing is performed using a different test methodology at [facility] than other [facility]. Direct result comparison should only be made within the same method. REF VALUES FOLLICULAR PHASE 1.5-10.0 MID-CYCLE 13.0-72.0 LUTEAL PHASE 0.5-13.0 MENOPAUSE 15.0-65.0 PREPUBERTY 0- 3.0 CHILDREN 0- 6.0 ADULT MALE 1.0- 9.0 Performed By: #### L #### [facility] [address] [place] [address] Luteinizing Hormone, Serumon 07-05-2020 Lutropin Qn 9.2 {IU/L} BI-NGJQQ-Gdkk an 310 IVF Work Phone: Comment on above: Luteinizing Hormone [LH] is performed using the Shruthi J [place] Access Immunoassay. LH testing is performed using a different test methodology at [facility] than other [facility]. Direct result comparison should only be made within the same method.REF VALUESFOLLICULAR PHASE 1.5-10.0MID-CYCLE 13.0-72.0LUTEAL PHASE 0.5-13.0MENOPAUSE 15.0-65.0PREPUBERTY 0- 3.0CHILDREN 0- 6.0ADULT MALE 1.0- 9.0 PROFESSOR OF LAW - Office Visiton 02-0 PROFESSOR OF LAW - Office Visit Diagnoses/Problems Assessed Morbid obesity [...] [facility] [phone] Julien [phone] [place] 1 Amended By: Bayron Mccarty; Jun [...] MD [facility] [phone] Julien [phone] [place] Appointment Duration:. 25 minutes; greater than half of the time was spent on counseling. 1 Amended By: Bayron Mccarty; Jun 19 2020 10:16 AM ESTChief Complaint follow up History of Present Jrcoqqm3806/19/2020 9:30AM JALEESA ARRIETA , 30 year is contacted for an (audio-visual, or audio only) Telehealth visit. Today's visit was provided through telemedicine conferencing: Using [employer] platform. Consent: The concept of telemedicine? [...] is a telehealth appointment Results/Data HCG, Beta Aoyobuoozayw47Ssh3116 11:58AMBayron Mccarty Test NameResultFlagReference HCG, Beta Quantitative<2 [...] HCG measurement is performed using the Shruthi [place] Access Immunoassay which detects intact HCG and free beta HCG subunit. This test is not indicated for use as a tumor marker. HCG testing is performed using a different test methodology at [facility] than other [facility]. Direct result comparison should only be made within the same method. REF VALUES NON FEMALE <5 MALES <5 Progesterone, Zymth13Ymz5231 11:58AMBayron Mccarty Test NameResultFlagReference Progesterone, Serum10.5 ng/mL REF VALUES MALE <0.3- 1.2 FOLLICULAR PHASE <0.3- 1.4 LUTEAL PHASE 3.3-25.6 MID-LUTEAL PHASE 4.4-28.0 POSTMENOPAUSAL <0.3- 0.7 FEMALES: 1ST TRIMESTER 11.2- 90.0 2ND TRIMESTER 25.6- 89.4 3RD TRIMESTER 48.4-422.5 . Patients receiving DHEA-S supplements may show false elevation of progesterone for results near 1.0 ng/mL. Contact laboratory at [phone] if alternative testing is needed. CMV IgG and IgM Ai50Jsz2304 11:58AMFindley, Bayron Test NameResultFlagReference CMV IgG AntibodyREACTIVEASee Below Reference Range: NONREACTIVE CMV IGM [id number] 11:58AMBibianaBayron Test NameResultFlagReference CMV IGM AB<30.00 AU/mL [...] testing in two or more weeks. Xray Cxkivhyjknqbbdhozkn85Rgl 2020 12:00AMBayron Mccarty [Mar 28, 2020 9:43AM Bayron Mccarty] Reason: Unspecified for Xray Hysterosalpingogram Test NameResultFlagReference Xray Hysterosalpingogram Please click on the link to view the study images Anti Mullerian [id number] 12:03PMBayron Mccarty Test NameResultFlagReference Anti Mullerian Hormone6.36 ng/mL For assays employing antibodies, the possibility exists for interference by heterophile antibodies in the samples.1 1.Oswald Crews. Interferences in Immunoassays - still a threat. Clin. Chem. 2000; 46: 0190-8547. This test was developed and its performance characteristics determined by [employer]. It has not been cleared or approved by the Food and Drug Administration. Reference Range: Females 26 - 30y: 1.03 - 11.10 Median 4.20 AMH concentrations of >= 1.06 ng/mL is correlated with a better response to ovarian stimulation, produced more retrievable oocytes and higher odds of live according to Carey et al. Fertility and Sterility. 2010: 94:9937-8999. The current AMH test method correlates with [...] exclude an AMH-secreting ovarian tumor. Rubella IgG Gddvdwvo02Kfr2961 12:03PMBayron Mccarty Test NameResultFlagReference Rubella IgG AntibodyPOSITIVE [...] TSH WITH REFLEX TO FREE T4 IF [id number] 12:03PMBayron Mccarty Test NameResultFlagReference Thyroid Stimulating Hormone, Serum2.17 mIU/LSee Below Reference Range: 0.44 - 3.98 TSH testing is performed using different testing methodology at [facility] than at other [facility]. Direct result comparisons should only be made within the same method. Varicella Zoster IgG Ojnzsaeo57Fgr0971 12:03PMBayron Mccarty Test NameResultFlagReference Varicella Zoster IgG [...] altered results in serological assays. Vitamin D 25-Kkvswdr57Prx9236 12:03PMBayron Mccarty Test NameResultFlagReference Vitamin D 25-Hydroxy, Level17 ng/mLA . DEFICIENCY: < 20 NG/ML INSUFFICIENCY: 20-29 NG/ML SUFFICIENCY: 30-100 NG/ML THIS ASSAY ACCURATELY QUANTIFIES THE SUM OF VITAMIN D3, 25-HYDROXY AND VIT D2,25-HYDROXY. { 17-Hydroxyprogesterone, Qptny51Oaf0339 12:03Bayron Silva Test NameResultFlagReference 17-Hydroxyprogesterone, Serum33 ng/dL [...] Endocrinol Metab. 1991;73:674-686; J Clin Endocrinol Metab. 1989;69;2438-3808; J Clin Endocrinol Metab. 1994;78:226-270. Pediatr Res 1988;23:525-529. MedLinePlus (accessed 10/25/13). This test was developed and its analytical performance characteristics have been determined by [facility] [place]. It has not been cleared or approved by the U.S. Food and Drug Administration. This assay has been validated pursuant to the CLIA regulations and is used for clinical purposes. DHEA Sulfate, Vwbyi05Lvm0622 12:03Bayron Silva Test NameResultFlagReference DHEA Sulfate, Dpkol757 ug/dL65 - 395 MATURITY-BASED REFERENCE RANGES: PUBERTAL [...] laboratory for further information. Testosterone Free + Dmsjp87Vyl0174 12:03PMBayron Mccarty Test NameResultFlagReference Testosterone, Total63 ng/dLH2-45 For additional information, please refer to http://education.[facility]ware [employer]/faq/ TotalTestosteroneLCMSMSF AQ165 (This link is being provided for informational/ educational purposes only.) This test was developed and its analytical performance characteristics have been determined by [facility], [place]. It has not been cleared or approved by the U.S. Food and Drug Administration. This assay has been validated pursuant to the CLIA regulations and is used for clinical purposes. Testosterone, Free Serum8.8 pg/mLH0.1-6.4 This test was developed and its analytical performance characteristics have been determined by [facility], [place]. It has not been cleared or approved by the U.S. Food and Drug Administration. This assay has been validated pursuant to the CLIA regulations and is used for clinical purposes. Hemoglobin [id number] 12:03PMBayron Mccarty Test NameResultFlagReference Hemoglobin A1C, Level5.5 % Diagnosis of Diabetes-Adults Non-Diabetic: < or = 5.6% Increased risk for developing diabetes: 5.7-6.4% Diagnostic of diabetes: > or = 6.5% . Monitoring of Diabetes Age (y) Therapeutic Goal (%) Adults: >18 <7.0 Pediatrics: 13-18 <7.5 7-12 <8.0 0- 6 7.5-8.5 [place] [employer]. Diabetes Care 33(S1), May 2009. Estimated Average Pbollaw094 MG/DL GC + Chlamydia By Amplified [id number] 12:03PMBayron Mccarty Test NameResultFlagReference N.GONORRHEA,AMPLIFIEDNEG ATIVENegative SOURCE: Urine Chlamydia Trach, AmplifiedNEGATIVENegativ e Hepatitis B Surface [id number] 12:03PMBayron Mccarty Test NameResultFlagReference Hep.B Surface AgNONREACTIVESee Below Reference Range: NONREACTIVE Biotin interference may cause falsely decreased results. Patients taking a Biotin dose of up to 5 mg/day should refrain from taking Biotin for 24 hours before sample collection. Providers may contact their local laboratory for further information. Hepatitis C Antibody [id number] 12:03PMBayron Mccarty Test NameResultFlagReference Hepatitis C-AntibodyNONREACTIVESee Below Reference Range: NONREACTIVE Results from patients taking biotin supplements or receiving high-dose biotin therapy should be interpreted with caution due to possible interference with this test. Providers may contact their local laboratory for further information. HIV 1/2 ANTIGEN/ANTIBODY SCREEN WITH REFLEX TO [id number] 12:03PMBayron Mccarty Test NameResultFlagReference HIV 1/2 AG/AB SCREENNONREACTIVESee Below Reference Range: NONREACTIVE HIV Ag/Ab screen is performed using the Siemens HaivisionllAnulex HIV Ag/Ab Combo assay which detects the presence of HIV p24 antigen as well as antibodies to HIV-1 (Group M and O) and HIV-2. SYPHILIS SCREENING WITH [id number] 12:03Bayron Silva Test NameResultFlagReference SYPHILIS TOTAL ANTIBODYNONREACTIVESee Below SOURCE: Reference Range: NONREACTIVE No significant level of Treponema pallidum antibody detected. Repeat testing in 2 to 4 weeks may be considered if early infection or incubating syphilis infection is suspected. Signatures Electronically signed by : Bayron Mccarty MD; Jun 19 2020 10:16AM EST (Author) Normal [employer] CMV IGM ABon 04-20-2020 CMV IGM AB <30.00 Normal [facility] Comment on above: Result Comment: REFE RENCE [...] weeks. Performed By: #### C MVM2 #### [facility] [address] [place] [address] CMV IGG AND IGM ABon 020 CMV IGG AB REACTIVE Abnormal NONREACTIVE [facility] Comment on above: Performed By: #### C MV2 #### [facility] [address] [place] [address] PROGESTERONEon 04-16-2020 PROGESTERONE 10.5 ng/mL Normal [facility] Comment on above: Result Comment: REF VALUES MALE <0.3- 1.2 FOLLICULAR PHASE <0.3- 1.4 LUTEAL PHASE 3.3-25.6 MID-LUTEAL PHASE 4.4-28.0 POSTMENOPAUSAL <0.3- 0.7 FEMALES: 1ST TRIMESTER 11.2- 90.0 2ND TRIMESTER 25.6- 89.4 3RD TRIMESTER 48.4-422.5 . Patients receiving DHEA-S supplements may show false elevation of progesterone for results near 1.0 ng/mL. Contact laboratory at [phone] if alternative testing is needed. Performed By: #### P BOBBY #### [facility] [address] [place] [address] HCG,BETA-QUANTITATIVEon HCG,BETA-QUANTITATIVE <2 Normal [facility] Comment on above: Result Comment: Low- level [...] performed using a different test methodology at [facility] than other system hospitals. Direct result comparison should only be made within the same method. REF VALUES NON FEMALE <5 MALES <5 Performed By: #### H QU #### [address] [id number] PROFESSOR OF LAW - Office Visiton PROFESSOR OF LAW - Office Visit Chief Complaint An interactive [...] test results. Roby JEWELL. History of Present Tcclmbt7704/14/2020 9:30AM JALEESA ARRIETA , 30 year is contacted for an (audio-visual, or audio only) Telehealth visit. Today's visit was provided through telemedicine conferencing: Using [employer] platform. Consent: The concept of telemedicine? [...] 25 MCG (1000 UT) Oral Tablet; Therapy: [id number] to Recorded Dispense: 0 Days ; #: Sufficient Tablet; Refill: 0; KEVIN = N; Record; Last Updated By: Breezy Jasso; 2020 1:15:24 PM Vitals Vital Signs Recorded: 43Cxl3532 09:08AM Height5 ft 6 in Ueemcd131 lb BMI Eswvkjuybz81.81 BSA Calculated2.34 MKA90Emp1047 Gravida1 Para0 Pain Scale0 Physical Exam This is a telehealth appointment Results/Data Anti Mullerian Mpvcsdq60Exy9298 12:03PMBayron Mccarty Test NameResultFlagReference Anti Mullerian Hormone6.36 ng/mL For assays employing antibodies, the possibility exists for interference by heterophile antibodies in the samples.1 1.Oswald Crews. Interferences in Immunoassays - still a threat. Clin. Chem. 2000; 46: 1165-6885. This test was developed and its performance characteristics determined by [facility]. It has not been cleared or approved by the Food and Drug Administration. Reference Range: Females 26 - 30y: 1.03 - 11.10 Median 4.20 AMH concentrations of >= 1.06 ng/mL is correlated with a better response to ovarian stimulation, produced more retrievable oocytes and higher odds of live according to Gleicher et al. Fertility and Sterility. 2010: 94:7171-3111. The current AMH test method correlates with [...] exclude an AMH-secreting ovarian tumor. Anti Mullerian Pnodfci45Nhq2897 12:03PMBayron Mccarty Test NameResultFlagReference Anti Mullerian Hormone6.36 ng/mL For assays employing antibodies, the possibility exists for interference by heterophile antibodies in the samples.1 1.Oswald Brunner Interferences in Immunoassays - still a threat. Clin. Chem. 2000; 46: 7582-4927. This test was developed and its performance characteristics determined by [facility] [facility] [employer]. It has not been cleared or approved by the Food and Drug Administration. Reference Range: Females 26 - 30y: 1.03 - 11.10 Median 4.20 AMH concentrations of >= 1.06 ng/mL is correlated with a better response to ovarian stimulation, produced more retrievable oocytes and higher odds of live according to Gleicher et al. Fertility and Sterility. 2010: 94:3495-1794. The current AMH test method correlates with [...] exclude an AMH-secreting ovarian tumor. Rubella IgG Uwiuiukw57Szp1202 12:03PMBayron Mccarty Test NameResultFlagReference Rubella IgG AntibodyPOSITIVE [...] TSH WITH REFLEX TO FREE T4 IF [id number] 12:03PMBayron Mccarty Test NameResultFlagReference Thyroid Stimulating Hormone, Serum2.17 mIU/LSee Below Reference Range: 0.44 - 3.98 TSH testing is performed using different testing methodology at [facility] than at other [facility]. Direct result comparisons should only be made within the same method. Varicella Zoster IgG Kmkkefhe38Igi9586 12:03PMBayron Mccarty Test NameResultFlagReference Varicella Zoster IgG [...] altered results in serological assays. Vitamin D 25-Tecpefm48Rdw5053 12:03PMBayron Mccarty Test NameResultFlagReference Vitamin D 25-Hydroxy, Level17 ng/mLA . DEFICIENCY: < 20 NG/ML INSUFFICIENCY: 20-29 NG/ML SUFFICIENCY: 30-100 NG/ML THIS ASSAY ACCURATELY QUANTIFIES THE SUM OF VITAMIN D3, 25-HYDROXY AND VIT D2,25-HYDROXY. { 17-Hydroxyprogesterone, [id number] 12:03PMBayron Mccarty Test NameResultFlagReference 17-Hydroxyprogesterone, Serum33 ng/dL [...] Endocrinol Metab. 1991;73:674-686; J Clin Endocrinol Metab. 1989;69;0983-4826; J Clin Endocrinol Metab. 1994;78:226-270. Pediatr Res 1988;23:525-529. MedLinePlus (accessed 10/25/13). This test was developed and its analytical performance characteristics have been determined by [facility]. It has not been cleared or approved by the U.S. Food and Drug Administration. This assay has been validated pursuant to the CLIA regulations and is used for clinical purposes. DHEA Sulfate, Zywiq80Stl7524 12:03PMBayron Mccarty Test NameResultFlagReference DHEA Sulfate, Obyjo645 ug/dL65 - 395 MATURITY-BASED REFERENCE RANGES: PUBERTAL [...] laboratory for further information. Testosterone Free + [id number] 12:03PMBayron Mccarty Test NameResultFlagReference Testosterone, Total63 ng/dLH2-45 For additional information, please refer to http://education.Aware [employer]/faq/ TotalTestosteroneLCMSMSF AQ165 (This link is being provided for informational/ educational purposes only.) This test was developed and its analytical performance characteristics have been determined by [facility] [place] [place]. It has not been cleared or approved by the U.S. Food and Drug Administration. This assay has been validated pursuant to the CLIA regulations and is used for clinical purposes. Testosterone, Free Serum8.8 pg/mLH0.1-6.4 This test was developed and its analytical performance characteristics have been determined by [facility] [place] [place]. It has not been cleared or approved by the U.S. Food and Drug Administration. This assay has been validated pursuant to the CLIA regulations and is used for clinical purposes. Hemoglobin [id number] 12:03PMBayron Mccarty Test NameResultFlagReference Hemoglobin A1C, Level5.5 % Diagnosis of Diabetes-Adults Non-Diabetic: < or = 5.6% Increased risk for developing diabetes: 5.7-6.4% Diagnostic of diabetes: > or = 6.5% . Monitoring of Diabetes Age (y) Therapeutic Goal (%) Adults: >18 <7.0 Pediatrics: 13-18 <7.5 7-12 <8.0 0- 6 7.5-8.5 [place] [employer]. Diabetes Care 33(S1), May 2009. Estimated Average Ottqral058 MG/DL GC + Chlamydia By Amplified [id number] 12:03PMBayron Mccarty Test NameResultFlagReference N.GONORRHEA,AMPLIFIEDNEG ATIVENegative SOURCE: Urine Chlamydia Trach, AmplifiedNEGATIVENegativ e Hepatitis B Surface [id number] 12:03Bayron Silva Test NameResultFlagReference Hep.B Surface AgNONREACTIVESee Below Reference Range: NONREACTIVE Biotin interference may cause falsely decreased results. Patients taking a Biotin dose of up to 5 mg/day should refrain from taking Biotin for 24 hours before sample collection. Providers may contact their local laboratory for further information. Hepatitis C Antibody [id number] 12:03PMBayron Mccarty Test NameResultFlagReference Hepatitis C-AntibodyNONREACTIVESee Below Reference Range: NONREACTIVE Results from patients taking biotin supplements or receiving high-dose biotin therapy should be interpreted with caution due to possible interference with this test. Providers may contact their local laboratory for further information. HIV 1/2 ANTIGEN/ANTIBODY SCREEN WITH REFLEX TO [id number] 12:03PMBerryBayron mccarthy Test NameResultFlagReference HIV 1/2 AG/AB SCREENNONREACTIVESee Below Reference Range: NONREACTIVE HIV Ag/Ab screen is performed using the Siemens AtellAnulex HIV Ag/Ab Combo assay which detects the presence of HIV p24 antigen as well as antibodies to HIV-1 (Group M and O) and HIV-2. SYPHILIS SCREENING WITH [id number] 12:03PMBibiana Bayron Test NameResultFlagReference SYPHILIS TOTAL ANTIBODYNONREACTIVESee Below SOURCE: Reference Range: NONREACTIVE No significant level of Treponema pallidum antibody detected. Repeat testing in 2 to 4 weeks may be considered if early infection or incubating syphilis infection is suspected. Diagnoses/Problems Irregular menses (626.4) (N92.6) Morbid obesity (278.01) (E66.01) Orders HCG, Beta Quantitative; Status:Active; Requested for:71Zrg5601; Perform:Lab Services - Lab To Draw (Blood Test); Due:13Jul2020;Ordered; For:Irregular menses; Ordered By:Bayron Mccarty; Progesterone, Serum; Status:Active; Requested for:04Vvj8984; Perform:Lab Services - Lab To Draw (Blood [...] [facility] [phone] [place] [phone] [place] Appointment Duration:. 25 minutes; greater than half [...] MD [facility] [phone] [place] [phone] [place] 1 Amended By: Bayron Mccarty; Apr 14 2020 4:50 PM ESTSignatures Electronically signed by : Bayron Mccarty MD; Apr 14 2020 4:51PM EST (Author) Normal [employer] PROFESSOR OF LAW - Procedure Visiton 1 05-28-2019 PROFESSOR OF LAW - Procedure Visit Chief Complaint pt presents [...] 1 CAPSULE EVERY 12 HOURS DAILY; Therapy: 45Cgb6580 to (Evaluate:45Cjn0741) Requested for: 12Iwj0920; Last Rx:[id number] Ordered Rx By: Bayron Mccarty; Dispense: 5 Days ; #:10 Capsule; Refill: 0;For: Fertility testing; KEVIN = N; Verified Transmission to [place] [address]; Msg to Pharmacy: start medication the night before her procedure; Last Updated By: Elham TapjoyTess; 01/24/2020 12:08:27 PM Vitamin D 25 MCG (1000 UT) Oral Tablet; Therapy: 17Axk9725 to Recorded Dispense: 0 Days ; #: [...] Signatures Electronically signed by : Kelle Vaz, FRED-BURNISHING MACHINE OPERATOR; Mar 28 2020 4:10PM EST (Author) Normal [facility] PROFESSOR OF LAW - Office Visiton 11-0 PROFESSOR OF LAW - Office Visit Chief Complaint The patient [...] is considering single parent procreation. Her usual [employer] [facility] with whom she would plan to follow with for care in a future is Dr. Ng in [place]. Active Problems Female infertility (628.9) (N97.9) Fertility [...] 1 CAPSULE EVERY 12 HOURS DAILY; Therapy: 01Bbe0059 to (Evaluate:11Omm1616) Requested for: 50Gel3544; Last Rx:[id number] Ordered Rx By: Bayron Mccarty; Dispense: 5 Days ; #:10 Capsule; Refill: 0; For: Fertility testing; KEVIN = N; Verified Transmission to [place] [address]; Msg to Pharmacy: start medication the night before her procedure; Last Updated By: SystemHyperink; 01/24/2020 12:08:27 PM Vitamin D 25 MCG (1000 UT) Oral Tablet; Therapy: 11Jtm2651 to Recorded Dispense: 0 Days ; #: Sufficient Tablet; Refill: 0; KEVIN = N; Record; Last Updated By: Breezy Jasso; 2020 1:15:24 PM Vitals Vital Signs Recorded: 13Mar2020 01:08PM Heart Rate96 Lmxpafzw343 Rdzjxpijx93 Height5 ft 6 in Qzokpy212 lb BMI Maikgtxuuw40.91 BSA Calculated2.39 Tobacco Useb) No Fall Screeninga) No falls within the last year [id number] Gravida1 Para0 Pain Scale0 Diagnoses/Problems Morbid obesity [...] consultation of which greater than 50% was xevb-oo-glwk counseling. Weight loss prior to conception is [...] MD; Jun 12 2020 4:50PM EST Normal [facility] ANTI MULLERIAN HORMONEon ANTI MULLERIAN HORMONE 6.36 ng/mL Normal [facility] Comment on above: Result Comment: For assays employing antibodies, the possibility exists for interference by heterophile antibodies in the samples.1 1.Oswald Crews. Interferences in Immunoassays - still a threat. Clin. Chem. 2000; 46: 9240-8592. This test was developed and its performance characteristics determined by [employer]. It has not been cleared or approved by the Food and Drug Administration. Reference Range: Females 26 - 30y: 1.03 - 11.10 Median 4.20 AMH concentrations of >= 1.06 ng/mL is correlated with a better response to ovarian stimulation, produced more retrievable oocytes and higher odds of live according to Carey et al. Fertility and Sterility. 2010: 94:2008-3673. The current AMH test method correlates with [...] ovarian tumor. Performed By: #### A #### [facility] [address] [place] [address] [id number] 17-HYDROXYPROGESTERONEon 17-HYDROXYPROGESTERON E 33 ng/dL Normal [facility] [...] Endocrinol Metab. 1991;73:674-686; J Clin Endocrinol Metab. 1989;69;4207-3885; J Clin Endocrinol Metab. 1994;78:226-270. Pediatr Res 1988;23:525-529. MedLinePlus (accessed 10/25/13). This test was developed and its analytical performance characteristics have been determined by [employer] [place], [place]. It has not been cleared or approved by the U.S. Food and Drug Administration. This assay has been validated pursuant to the CLIA regulations and is used for clinical purposes. Performed By: #### 1 [facility] #### [employer] [facility] [address] [place] [address] TESTOST,FREE AND TOTALon TESTOSTERONE TOT.LC/MS/MS 63 ng/dL High 2-45 [facility] Comment on above: Result Comment: For additional information, please refer to http://education.[employer]/faq/ [email or web address] (This link is being provided for informational/ educational purposes only.) This test was developed and its analytical performance characteristics have been determined by [employer] [place], [place]. It has not been cleared or approved by the U.S. Food and Drug Administration. This assay has been validated pursuant to the CLIA regulations and is used for clinical purposes. Performed By: #### G [facility] #### [facility] [address] [place] [address] TESTOSTERONE,FREE 8.8 pg/mL High 0.1-6.4 [facility] Comment on above: Result Comment: This test was developed and its analytical performance characteristics have been determined by [employer] [place]. It has not been cleared or approved by the U.S. Food and Drug Administration. This assay has been validated pursuant to the CLIA regulations and is used for clinical purposes. Performed By: #### G [facility] #### [facility] [address] [place] [address] DHEA SULFATEon 01-25-2020 DHEA SULFATE 214 ug/dL [...] for further information. Performed By: #### G [facility] #### [facility] [address] [place] [address] GC + CHLAMYDIA BY AMPLIFIED DETECTIONon 01-25-2020 CHLAMYDIA TRACH.,AMPLIFIED Negative Normal Negative [facility] Comment on above: Performed By: #### G CCHA #### [facility] [address] [place] [address] N.GONORRHEA,AMPLIFIED Negative Normal Negative [facility] Comment on above: Performed By: #### G [facility] #### [facility] [address] [place] [address] HEPATITIS B SURFACE AGon HEP.B SURFACE AG NONREACTIVE Normal NONREACTIVE [facility] Comment on above: Result Comment: Biot in interference may cause falsely decreased results. Patients taking a Biotin dose of up to 5 mg/day should refrain from taking Biotin for 24 hours before sample collection. Providers may contact their local laboratory for further information. Performed By: #### G [facility] #### [facility] [address] [place] [address] HEPATITIS C ABon 01-25-2020 HEPATITIS C AB NONREACTIVE Normal NONREACTIVE [facility] Comment on above: Result Comment: Resu lts from patients taking biotin supplements or receiving high-dose biotin therapy should be interpreted with caution due to possible interference with this test. Providers may contact their local laboratory for further information. Performed By: #### H [facility] #### [facility] [address] [place], [place] HIV ANTIGEN/ANTIBODY SCREENo n 01-25-2020 HIV AG/AB SCREEN NONREACTIVE Normal NONREACTIVE [facility] Comment on above: Result Comment: HIV Ag/Ab screen is performed using the Siemens HaivisionllAnulex HIV Ag/Ab Combo assay which detects the presence of HIV p24 antigen as well as antibodies to HIV-1 (Group M and O) and HIV-2. Performed By: #### G [facility] #### [facility] [address] [place] [address] RUBELLA IGG ABon 01-25-2020 RUBELLA IGG AB Positive Normal [facility] [place] Comment on above: Result Comment: INTE RPRETATIVE [...] assays. Performed By: #### R UBIG #### [facility] [address] [place] [id number] SYPHILIS SCREENING WITH REFL EXon 01-25-2020 SYPHILIS TOTAL AB NONREACTIVE Normal NONREACTIVE [facility] Comment on above: Result Comment: No s ignificant level of Treponema pallidum antibody detected. Repeat testing in 2 to 4 weeks may be considered if early infection or incubating syphilis infection is suspected. Performed By: #### S YPHR #### [facility] [address] [place] [address] TSH WITH REFLEX TO FREE T4 I F ABNORMALon 01-25-2020 TSH Qn 2.17 m[IU]/L Normal 0.44 - 3.98 [facility] Comment on above: Result Comment: TSH testing is performed using different testing methodology at [facility] than at other [facility]. Direct result comparisons should only be made within the same method. Performed By: #### G CCHA #### [facility] [address] [place] [address] VARICELLA ZOSTER IGG ABon VARICELLA ZOSTER IGG [...] assays. Performed By: #### V ARZG #### [facility] [address] [place] [address] VITAMIN D, 25-HYDROXYon 01-10 VITAMIN D, 25-HYDROXY 17 ng/mL Abnormal [facility] Comment on above: Result Comment: . DEFICIENCY: < 20 NG/ML INSUFFICIENCY: 20-29 NG/ML SUFFICIENCY: 30-100 NG/ML THIS ASSAY ACCURATELY QUANTIFIES THE SUM OF VITAMIN D3, 25-HYDROXY AND VIT D2,25-HYDROXY. { Performed By: #### G CCHA #### [facility] [address] [place] [address] GC + CHLAMYDIA BY AMPLIFIED DETECTIONon 01-24-2020 Lab Specimen Source Urine Normal [facility] Comment on above: Performed By: #### G CCHA #### [facility] [address] [place] [address] HEMOGLOBIN A1Con 01-24-2020 HbA1c (Bld) [Mass fraction] 5.5 % Normal [facility] Comment on above: Result Comment: Diag nosis of Diabetes-Adults Non-Diabetic: < or = 5.6% Increased risk for developing diabetes: 5.7-6.4% Diagnostic of diabetes: > or = 6.5% . Monitoring of Diabetes Age (y) Therapeutic Goal (%) Adults: >18 <7.0 Pediatrics: 13-18 <7.5 7-12 <8.0 0- 6 7.5-8.5 [place] [employer]. Diabetes Care 33(S1), May 2009. Performed By: #### H BA1E #### [facility] [address] [place] [address] HbA1c (Bld) [Mass fraction] 111 MG/DL Normal [facility] Comment on above: Performed By: #### H BA1E #### [facility] [address] [place] [address] PROFESSOR OF LAW - Office Visiton 01-10 PROFESSOR OF LAW - Office Visit Chief Complaint 29 year [...] was treated with laparoscopic left salpingectomy in [facility]. 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 pain DIRECTOR OF MARKETING AND PROMOTIONS HISTORY: STDs: Yes, remote history of gonorrhea [...] PM Vitals Vital Signs Recorded: 24Jan2020 11:13AM Afgokpjjmgr92.7 F Heart Xvsp074 Rkmvtjfb251 Zmmtaonlw17 Height5 ft 6 in Thmxug635 lb BMI Allzuddnnu05.13 BSA Calculated2.35 Tobacco Useb) No Fall Screeninga) No falls within the last year [id number] Gravida1 Para0 Pain Scale0 Diagnoses/Problems Female infertility (628.9) (N97.9) Fertility testing (V26.21) (Z31.41) Morbid obesity (278.01) (E66.01) Irregular menses (626.4) (N92.6) Screening for STD (sexually transmitted disease) (V74.5) (Z11.3) *Orders Anti Mullerian Hormone; Status:Active; Requested for:24Jan2020; Perform:Lab Services - Lab To Draw (Non-Blood Test); Due:19Jpd6418;Ordered; For:Female infertility, Fertility testing, Irregular menses, Morbid obesity; Ordered By:Bayron Mccarty; Start: Doxycycline Monohydrate 100 MG Oral Capsule; TAKE 1 CAPSULE EVERY 12 HOURS DAILY Rx By: Bayron Mccarty; Dispense: 5 Days ; #:10 Capsule; Refill: 0; For: Fertility testing; KEVIN = N; Verified Transmission to [place] [address]; Msg to Pharmacy: start medication the night before her procedure; Last Updated By: Cindi Lizarraga; 01/24/2020 12:08:27 PM Maternal Medicine Referral Evaluation and Treatment Evaluate AND Treat Status: Hold For - Scheduling Requested for: 36Sop2735 Ordered; For: Morbid obesity; Ordered By: Bayron Mccarty Performed: Due: 46Gqu9083 17-Hydroxyprogesterone, Serum; Status:Active; Requested for:29Swu1292; Perform:Lab Services - Lab To Draw (Blood Test); Due:22Flp9515;Ordered; For:Screening for STD (sexually transmitted disease); Ordered By:Bayron Mccarty; DHEA Sulfate, Serum; Status:Active; Requested for:01Dsu4838; Perform:Lab Services - Lab To Draw (Blood Test); Due:59Qxb5700;Ordered; For:Screening for STD (sexually transmitted disease); Ordered By:Bayron Mccarty; Hemoglobin A1C; Status:Active; Requested for:60Bnq0198; Perform:Lab Services - Lab To Draw (Blood Test); Due:44Yhn4320;Ordered; For:Screening for STD (sexually transmitted disease); Ordered By:Bayron Mccarty; Rubella IgG Antibody; Status:Active; Requested for:24Jan2020; Perform:Lab Services - Lab To Draw (Blood Test); Due:04Lne0497;Ordered; For:Screening for STD (sexually transmitted disease); Ordered By:Bayron Mccarty; Testosterone Free + Total; Status:Active; Requested for:24Jan2020; Perform:Lab Services - Lab To Draw (Blood Test); Due:71Ote0807;Ordered; For:Screening for STD (sexually transmitted disease); Ordered By:Bayron Mccarty; TSH WITH REFLEX TO FREE T4 IF ABNORMAL; Status:Active; Requested for:24Jan2020; Perform:Lab Services - Lab To Draw (Blood Test); Due:50Qks1902;Ordered; For:Screening for STD (sexually transmitted disease); Ordered By:Bayron Mccarty; Ultrasound Pelvis Transvaginal; Status:Hold For - Scheduling; Requested for:24Jan2020; Perform:[facility]; Order Comments:will call with menses to schedule; Due:42Iwz4389;Ordered; For:Screening for STD (sexually transmitted disease); Ordered By:Bayron Mccarty; Radiologist to Determine Optimal Study : Y What are the patient's signs and symptoms? : fert testing Varicella Zoster IgG Antibody; Status:Active; Requested for:23Ofh9920; Perform:Lab Services - Lab To Draw (Blood Test); Due:51Mhb5375;Ordered; For:Screening for STD (sexually transmitted disease); Ordered By:Bayron Mccarty; Vitamin D 25-Hydroxy; Status:Active; Requested for:65Qkq3200; Perform:Lab Services - Lab To Draw (Blood Test); Due:37Xzn5232;Ordered; For:Screening for STD (sexually transmitted disease); Ordered By:Bayron Mccarty; Xray Hysterosalpingogram; Status:Hold For - Scheduling; Requested for:22Xoy8598; Perform:[facility]; Order Comments:will call with menses to schedule. schedule between -12. start doxycycline night prior to procedure; Due:99Qje8433;Ordered; For:Screening for STD (sexually transmitted disease); Ordered By:Bayron Mccarty; Radiologist to Determine Optimal Study : Y What are the patient's signs and symptoms? : fert testing Tobacco Use Screening; Status:Complete; Done: 41Nnz0265 Perform:Not Applicable;Ordered; For:SocHx: Never a smoker; Ordered [...] sent to her home pharmacy ([facility] in [place]) [ ] Day 3 FSH, LH, E2 [x] AMH [x] TSH [x] Prolactin [x] Testosterone, DHEAS [x] HgA1C [x] STD screening [x ] Preconceptual screening including Rubella,Varicella, Blood type [ ] Genetic Screen with [employer] - will consider [ ] Take vitamins [x] Return to see JUDICIAL LAW CLERK after workup complete to discuss management plan [...] above: Performed By: #### S YPHR #### [facility] [address] [place] [address] Performed By: #### Jovany ARZG #### [facility] [address] [place] [address] Performed By: #### R UBIG #### [facility] [address] [place] [address] Vital Signs Date Time Vital Sign Value Performing Clinician Facility 05-03-2024 15:110500 Body mass index (BMI) [Ratio] 49.09 kg/m2 Mena Concord PA Work Phone: [facility] 05-03-2024 15:11-0500 Body weight 137.95 kg Mena Concord PA Work Phone: [facility] 05-03-2024 15:11-0500 Diastolic blood pressure 70 mm[Hg] Mena Marissa PA Work Phone: [facility] 05-03-2024 15:11-0500 Systolic blood pressure 120 mm[Hg] Mena Marissa PA Work Phone: [facility] 04-22-2024 09:51-0500 Body mass index (BMI) [Ratio] 49.45 kg/m2 Tacho Shon DO Work Phone: [facility] 04-22-2024 09:51-0500 Body weight 138.98 kg Tacho Shon DO Work Phone: [facility] 04-22-2024 09:51-0500 Diastolic blood pressure 80 mm[Hg] Tacho Shon DO Work Phone: [facility] 04-22-2024 09:51-0500 Systolic blood pressure 130 mm[Hg] Tacho Shon DO Work Phone: [facility] 04-06-2024 14:10-0500 Body mass index (BMI) [Ratio] 48.58 kg/m2 Mena Concord PA Work Phone: [facility] 04-06-2024 14:10-0500 Body weight 136.53 kg Mena Marissa PA Work Phone: [facility] 04-06-2024 14:10-0500 Diastolic blood pressure 80 mm[Hg] Mena Marissa PA Work Phone: [facility] 04-06-2024 14:10-0500 Systolic blood pressure 128 mm[Hg] Mena Marissa PA Work Phone: [facility] 03-22-2024 14:14-0500 Body mass index (BMI) [Ratio] 48.92 kg/m2 Tacho Shon DO Work Phone: [facility] 03-22-2024 14:14-0500 Body weight 137.49 kg Tacho Shon DO Work Phone: [facility] 03-22-2024 14:14-0500 Diastolic blood pressure 84 mm[Hg] Tacho Shon DO Work Phone: [facility] 03-22-2024 14:14-0500 Systolic blood pressure 126 mm[Hg] Tacho Shon DO Work Phone: [facility] 03-05-2024 23:11-0400 Diastolic blood pressure 78 mm[Hg] [facility] Work Phone: [facility] [place] 03-05-2024 23:11-0400 Heart rate 90 /min [facility] Work Phone: [facility] [place] 03-05-2024 23:11-0400 Respiratory rate 18 /min [facility] Work Phone: [facility] [place] 03-05-2024 23:11-0400 SaO2% (BldA) [Mass fraction] 96 % [facility] Work Phone: [facility] [place] 03-05-2024 23:11-0400 Systolic blood pressure 136 mm[Hg] [facility] Work Phone: [facility] [place] 03-05-2024 19:59-0400 Body temperature 98.1 [degF] [facility] Work Phone: [facility] [place] 03-05-2024 19:58-0400 Body height 167.64 cm [facility] Work Phone: [facility] [place] 03-05-2024 19:58-0400 Body weight 136.55 kg [facility] Work Phone: [facility] [place] 02-26-2024 19:50-0400 Body height 167.64 cm [facility] Work Phone: [facility] [place] 02-26-2024 19:50-0400 Body temperature 97.8 [degF] [facility] Work Phone: [facility] [place] 02-26-2024 19:50-0400 Body weight 136.98 kg [facility] Work Phone: [facility] [place] 02-26-2024 19:50-0400 Diastolic blood pressure 91 mm[Hg] [facility] Work Phone: [facility] [place] 02-26-2024 19:50-0400 Heart rate 103 /min Services [facility] Work Phone: [facility] [place] 02-26-2024 19:50-0400 Respiratory rate 16 /min Services [facility] Work Phone: [facility] [place] 02-26-2024 19:50-0400 SaO2% (BldA) [Mass fraction] 96 % Services [facility] Work Phone: [facility] [place] 02-26-2024 19:50-0400 Systolic blood pressure 144 mm[Hg] Services [facility] Work Phone: [facility] [place] 02-23-2024 14:01-0400 Body mass index (BMI) [Ratio] 48.76 kg/m2 Mena Ann PA Work Phone: [facility] 02-23-2024 14:01-0400 Body weight 137.04 kg Mena Marissa PA Work Phone: [facility] 02-23-2024 14:01-0400 Diastolic blood pressure 82 mm[Hg] Mena Ann PA Work Phone: [facility] 02-23-2024 14:01-0400 Systolic blood pressure 128 mm[Hg] Mena Marissa PA Work Phone: [facility] 01-20-2024 13:58-0400 Body mass index (BMI) [Ratio] 48.1 kg/m2 Tacho Shon DO Work Phone: [facility] 01-20-2024 13:58-0400 Body weight 135.17 kg Tacho Shon DO Work Phone: [facility] 01-20-2024 13:58-0400 Diastolic blood pressure 74 mm[Hg] Tacho Shon DO Work Phone: [facility] 01-20-2024 13:58-0400 Systolic blood pressure 122 mm[Hg] Tacho Valienteo DO Work Phone: [facility] 10-06-2023 17:42-0400 Body height 167.64 cm Services [facility] Work Phone: [facility] [place] 10-06-2023 17:42-0400 Body temperature 98.3 [degF] [facility] Work Phone: [facility] [place] 10-06-2023 17:42-0400 Body weight 134 kg Services [facility] Work Phone: [facility] [place] 10-06-2023 17:42-0400 Diastolic blood pressure 94 mm[Hg] Services [facility] Work Phone: [facility] [place] 10-06-2023 17:42-0400 Heart rate 98 /min Services [facility] Work Phone: [facility] [place] 10-06-2023 17:42-0400 Respiratory rate 18 /min Services [facility] Work Phone: [facility] [place] 10-06-2023 17:42-0400 SaO2% (BldA) [Mass fraction] 100 % Services [facility] Work Phone: [facility] [place] 10-06-2023 17:42-0400 Systolic blood pressure 142 mm[Hg] Services [facility] Work Phone: [facility] [place] 09-17-2023 14:22-0400 Body height 167.6 cm Anna Ortiz [facility] 09-17-2023 14:22-0400 Body mass index (BMI) [Ratio] 47.61 kg/m2 Anna Ortiz RD [facility] 09-17-2023 14:22-0400 Body weight 133.[address] [facility] 08-20-2023 13:050400 Body height 167.6 cm Tonya Senior APRN.[facility] Work Phone: [facility] 08-20-2023 13:05-0400 Body weight 133.81 kg Tonya Senior [facility] Work Phone: [facility] 08-07-2023 15:23-0400 Body height 168.91 cm Services [facility] Work Phone: [facility] 08-07-2023 15:23-0400 Body mass index (BMI) [Ratio] 46.9 kg/m2 Services [facility] Work Phone: [facility] 08-07-2023 15:23-0400 Body weight 133.89 kg Services [facility] Work Phone: [facility] 08-07-2023 15:23-0400 Diastolic blood pressure 83 mm[Hg] Services [facility] Work Phone: [facility] 08-07-2023 15:23-0400 Heart rate 101 /min Services [facility] Work Phone: [facility] 08-07-2023 15:23-0400 Respiratory rate 18 /min Services [facility] Work Phone: [facility] 08-07-2023 15:23-0400 SaO2% (BldA) [Mass fraction] 98 % Services [facility] Work Phone: [facility] 08-07-2023 15:23-0400 Systolic blood pressure 120 mm[Hg] Services [facility] Work Phone: [facility] 06-13-2023 11:00-0500 Body height 168.28 cm [employer] Other [facility] 06-13-2023 11:00-0500 Body mass index (BMI) [Ratio] 48.53 kg/m2 [facility] Other Box Other 06-13-2023 11:00-0500 Body weight 137.44 kg [employer] Other Box Other 06-13-2023 11:00-0500 Body weight 137.43 kg [facility] [employer] Work Phone: [facility] 06-13-2023 11:00-0500 Diastolic blood pressure 82 mm[Hg] Nicholas Michaels Other [facility] 06-13-2023 11:00-0500 Respiratory rate 18 /min Nicholasclayton Michaels Other Box Other 06-13-2023 11:00-0500 SaO2% (BldA) [Mass fraction] 97 % Nicholas Michaels Other Box Other 06-13-2023 11:00-0500 Systolic blood pressure 120 mm[Hg] Nicholas Michaels Other [facility] 01-08-2023 10:45-0400 Body height 168.28 cm Nicholas Michaels Other Box Other 01-08-2023 10:45-0400 Body mass index (BMI) [Ratio] 52.89 kg/m2 Nicholas Michaels Other Box Other 01-08-2023 10:45-0400 Body weight 149.78 kg Nicholas Michaels Other Box Other 01-08-2023 10:45-0400 Diastolic blood pressure 81 mm[Hg] Nicholas Michaels Other Box Other 01-08-2023 10:45-0400 Respiratory rate 18 /min Nciholas Michaels Other Box Other 01-08-2023 10:45-0400 SaO2% (BldA) [Mass fraction] 97 % Nicholas Michaels Other Box Other 01-08-2023 10:45-0400 Systolic blood pressure 122 mm[Hg] Nicholas Michaels Other [facility] [employer] Other 06-18-2022 16:57-0500 Body height 167.64 cm [facility] Work Phone: [facility] 06-18-2022 16:57-0500 Body weight 157 kg [facility] Work Phone: [facility] 06-18-2022 16:56-0500 Body temperature 98.3 [degF] [facility] Work Phone: [facility] 06-18-2022 16:56-0500 Diastolic blood pressure 67 mm[Hg] [facility] Work Phone: [facility] 06-18-2022 16:56-0500 Heart rate 95 /min [facility] Work Phone: [facility] 06-18-2022 16:56-0500 Respiratory rate 20 /min [facility] Work Phone: [facility] 06-18-2022 16:56-0500 SaO2% (BldA) [Mass fraction] 97 % [facility] Work Phone: [facility] 06-18-2022 16:56-0500 Systolic blood pressure 158 mm[Hg] [facility] Work Phone: [facility] 12-02-2021 20:26-0400 Body height 167.64 cm [facility] Work Phone: [facility] 12-02-2021 20:26-0400 Body temperature 98.2 [degF] [facility] Work Phone: [facility] 12-02-2021 20:26-0400 Body weight 144.24 kg [facility] Work Phone: [facility] 12-02-2021 20:26-0400 Diastolic blood pressure 89 mm[Hg] [facility] Work Phone: [facility] 12-02-2021 20:26-0400 Heart rate 104 /min Services [facility] Work Phone: [facility] 12-02-2021 20:26-0400 Respiratory rate 20 /min Services [facility] Work Phone: [facility] 12-02-2021 20:26-0400 SaO2% (BldA) [Mass fraction] 96 % Services [facility] [employer] Work Phone: [facility] 12-02-2021 20:26-0400 Systolic blood pressure 156 mm[Hg] Services [facility] Work Phone: [facility] 06-19-2020 11:10-0500 BMI (Body Mass Index) 46.65 kg/m2 Bayron Bibiana TH-NBHAN-Bhyswg 310 IV[facility] Work Phone: 06-19-2020 11:10-0500 Body weight 131.09 kg Bayron Bibiana KW-VYQQB-Oquvwb 310 IVF Work Phone: 06-19-2020 11:10-0500 BSA (Body Surface Area) 2.34 m2 Bayron Bibiana QM-ZETFF-Xbrsnd 310 IVF Work Phone: 06-19-2020 11:10-0500 Height 167.64 cm Bayron Bibiana QW-NNQRH-Akaveq 310 IVF Work Phone: 06-19-2020 11:10-0500 1 1 Bayron Bibiana PL-NTEJZ-Oggbbd 310 IVF Work Phone: Comment on above: 06-19-2020 11:10-0500 0 1 Bayron Bibinaa WJ-BSCBW-Wfmxiz 310 IVF Work Phone: Comment on above: [...] Start: 04-27-2024 End: 04-27-2024 ambulatory TACHO R [facility] Start: 04-22-2024 End: 04-22-2024 Bamboo flowsheet [...] Start: 03-30-2024 End: 03-30-2024 ambulatory TACHO R [facility] Start: 03-22-2024 End: 03-22-2024 Bamboo flowsheet [...] Clinisync Result Encounter Mena CARRILLO Work Phone: [facility] External Department Unsolicited Start: 03-19-2024 End: 03-19-2024 Clinisync Result Encounter Mena CARRILLO Work Phone: [facility] External Department Unsolicited Start: 03-05-2024 End: 03-05-2024 Emergency department patient visit Services [facility] Work Phone: [facility] Work Phone: Start: 03-01-2024 End: 03-01-2024 Orders Only Veda Hayes RN Maternal- Medic ine at [facility] Comment on above: Encounter for follow -up ultrasound of anatomy (Primary Dx); History of pre-eclampsia in prior , currently ; History of delivery, currently ; Obesity affecting in second trimester, unspecified obesity type Start: 02-26-2024 End: 02-26-2024 Emergency department patient visit Services [facility] Work Phone: [facility] Work Phone: Start: 02-23-2024 End: 02-23-2024 Bamboo flowsheet Mena CARRILLO Work Phone: [facility] Start: 02-23-2024 End: 02-23-2024 Bamboo flowsheet Mena CARRILLO Work Phone: [facility] Start: 02-23-2024 End: 02-23-2024 Office outpatient visit 15 minutes eMna CARRILLO Work Phone: [facility] Comment on above: 25 weeks gestation o f ; Second trimester ; Diabetes mellitus screening; size inconsistent with dates; H/O premature delivery Start: 02-23-2024 End: 02-23-2024 ambulatory MENA ANN Not Available Start: 02-17-2024 End: 02-17-2024 ambulatory TACHO R SHON [facility] Start: 01-26-2024 End: 01-26-2024 Clinisync Result Encounter Tacho Shon DO Work Phone: [facility] External Department Unsolicited Start: 01-26-2024 End: 01-26-2024 Clinisync Result Encounter Tacho Shon DO Work Phone: [facility] External [facility] Unsolicited Start: 01-20-2024 End: 01-20-2024 Office outpatient visit 15 minutes Tacho Shon DO Work Phone: [facility] Comment on above: Second trimester pre gnancy Start: 01-20-2024 End: 01-20-2024 ambulatory TACHO SHON Not Available Start: 01-19-2024 End: 01-19-2024 ambulatory TACHO R SHON [facility] Start: 12-23-2023 End: 12-23-2023 ambulatory MENA ANN Not Available Start: 11-25-2023 End: 11-25-2023 ambulatory TACHO SHON Not Available Start: 10-30-2023 End: 10-30-2023 ambulatory TACHO SHON Not Available Start: 10-09-2023 End: 10-09-2023 ambulatory LATONIA GREENE Facility:[facility] Start: 10-06-2023 End: 10-06-2023 Emergency department patient visit Services [facility] Work Phone: [facility] Work Phone: Start: 09-17-2023 End: 09-17-2023 ambulatory ANNA ANGEL Facility:[facility] Start: 09-17-2023 End: 09-17-2023 Nutrition therapy Anna Angel BAÑUELOS Nutrition Therapy Comment on above: Obesity, Class III, BMI 40-49.9 (morbid obesity) (HCC) (Primary Dx); Dietary counseling Start: 09-17-2023 End: 09-17-2023 Telemedicine consultation with patient Anna Ortiz SARMAD Nutrition Therapy Start: 09-15-2023 Admission to [facility] surgery [place] Tonya Senior APRN.BURNISHING MACHINE OPERATOR Work Phone: General Surgery Comment on above: Results Start: 09-15-2023 E-mail encounter fro m caregiver Tonya Senior APRN.BURNISHING MACHINE OPERATOR Work Phone: General Surgery Start: 09-11-2023 Telephone encounter Tonya Senior APRN.BURNISHING MACHINE OPERATOR Work Phone: General Surgery Comment on above: Results Start: 09-08-2023 End: 09-08-2023 ambulatory TONYA SENIOR Facility:[facility] Start: 09-05-2023 End: 09-05-2023 ambulatory TONYA SENIOR Facility:[facility] Start: 09-01-2023 End: 09-02-2023 ambulatory LATONIA GREENE Facility:[facility] Start: 09-01-2023 End: 09-01-2023 Admission to same day surgery center Latonia Greene PhD Work Phone: General Surgery BMI PSYL Comment on above: NO SHOW (Primary Dx) Start: 09-01-2023 End: 09-01-2023 Telemedicine consultation with patient Latonia Greene PhD Work Phone: General Surgery BMI PSYL Start: 08-20-2023 Admission to [facility] surgery center Tonya Senior LABORATORY SUPERVISOR.BURNISHING MACHINE OPERATOR Work Phone: General Surgery Comment on above: Welcome to Bariatric Surgery Start: 08-20-2023 E-mail encounter fro m caregiver Tonya Ron Senior APRN.BURNISHING MACHINE OPERATOR Work Phone: [place] [phone] Start: 08-20-2023 End: 08-20-2023 ambulatory Tonya Ron Senior APRN.BURNISHING MACHINE OPERATOR Work Phone: General Surgery Comment on above: Body mass index (BMI ) of 50-59.9 in adult (HCC) (Primary Dx); Angel's thyroiditis; High blood cholesterol Start: 08-20-2023 End: 08-20-2023 Telemedicine consultation with patient Tonya K Parrish IBARRA.BURNISHING MACHINE OPERATOR Work Phone: [facility] Start: 08-07-2023 End: 08-07-2023 ambulatory Services [facility] Work Phone: [facility] Work Phone: Start: 08-07-2023 End: 08-07-2023 Patient encounter procedure Services [facility] Work Phone: [facility] Work Phone: Start: 06-13-2023 Follow-up encounter Nicholas [facility] Start: 06-13-2023 Registered Recurring Services [facility] Work Phone: [facility] Work Phone: Start: 06-13-2023 End: 06-13-2023 ambulatory Nicholas Michaels Box Other Start: 06-13-2023 End: 06-13-2023 Patient encounter procedure Services [facility] Work Phone: [facility]- Start: 01-08-2023 End: 01-08-2023 ambulatory Nicholas Michaels Other Box Other Start: 01-08-2023 Nutrition therapy Nicholas p[facility]rez [facility] Start: 06-18-2022 End: 06-18-2022 Emergency department patient visit Services Family [facility] Work Phone: [facility] Work Phone: Start: 06-03-2022 End: 06-03-[address] TACHO MENENDEZ Facility: Start: 12-02-2021 End: 12-02-2021 Emergency department patient visit Services Family [facility] Work Phone: [facility] Start: 07-08-2020 Patient encounter procedure Bayron Mccarty ER-KMWQH-Hmrwrc 310 IVF Work Phone: Start: 07-05-2020 Patient encounter procedure Bayron Mccarty HB-DMRRJ-Bhndrf 310 IVF Work Phone: Start: 06-19-2020 Patient encounter procedure Bayron Mccarty ND-ZNEFS-Qoojeo 310 IVF Work Phone: Start: 04-14-2020 Patient encounter procedure Bayron Mccarty RT-GYBFJ-Uatnpg 310 IVF Work Phone: Start: 03-28-2020 Patient encounter procedure Bayron Mccarty AN-WGTAT-Wxacsa 310 IVF Work Phone: Start: 2020 Patient encounter procedure Bayron Mccarty PL-FFUZY-Vjipxu 310 IVF Work Phone: Start: 01-24-2020 Patient encounter procedure Bayron Mccarty XH-UZWAC-Hcbfxy 310 IVF Work Phone: Start: 08-01-2017 End: 08-02-2017 Ambulatory Agustin Neidasriram Facility:[id number] Start: 07-14-2017 End: 07-15-2017 Ambulatory Agustin Carrasquillosriram Facility:[id number] Procedures Date Procedure Procedure Detail Performing [...] Start: 03-05-2024 Plain chest X-ray Servi malina [employer] [facility] Work Phone: Start: 03-05-2024 Respiratory Panel (PCR) Services [facility] Work Phone: Start: 03-05-2024 Streptococcus pyogen es antigen assay Services Family [facility] Work Phone: Start: 02-26-2024 Streptococcus pyogen es antigen assay Services [facility] Work Phone: Start: 02-23-2024 Urnls dip [...] above: Performed By: #### T +S #### [facility] [address] [place] [address] Start: 07-05-2020 IO Ultrasound, limit ed pelvic, follicle monitoring Bayron Mccarty Start: 06-26-2020 IO Ultrasound, limit ed pelvic, follicle monitoring Bayron Mccarty Start: 05-10-2020 Assay of progesterone J oseptiffanie Bibiana Adenoid excision Bayron wallace Cholecystectomy Bayron Chen ey SARS Antigen (LFIA) Services [facility] Work Phone: Plan of Treatment Date Care Activity Detail Author Start: 12-22-2028 Screening for malign ant neoplasm of cervix [facility] Start: 12-22-2026 Screening for malign ant neoplasm of cervix [facility] [employer] Start: 03-01-2025 End: 03-01-2025 US MFM with or without consult US MFM with or without consult Imaging Routine Encounter for follow-up ultrasound of anatomy History of pre-eclampsia in prior , currently History of delivery, currently Obesity affecting in second trimester, unspecified obesity type Expected: 03/01/2025 (Approximate), Expires: 03/01/2025 [employer] Phone: Comment on above: Expected: 03/01/2025 (Approximate), Expires: 03/01/2025 Start: 01-18-2025 Adult BMI Screening Adult BMI Screen ing [facility] Start: 01-18-2025 Tobacco Screening Tobacco Screening [facility] Start: 05-17-2024 End: 05-17-2024 Patient encounter procedure 05/17/2024 3:00 PM EST Routine [facility] [address] [place] [id number] Tacho Menendez DO [address] [place] [address] [facility] Start: 05-03-2024 End: 05-03-2024 Patient encounter procedure 05/03/2024 2:50 PM EST Routine [facility] [address] [place] [address] Mena Ann PA [address] [place], [place] [id number] [facility] Start: 04-22-2024 End: 04-22-2025 [...] PM EST Routine [facility] [address] [facility] [place] [phone] Mena Ann PA [address] [place], [place] [id number] [facility] Start: 03-30-2024 End: 03-30-2024 Patient encounter procedure 03/30/2024 2:45 PM EST Appointment [facility] - Ultrasound [address] [place] [place] [id number] [facility] - Ultrasound Start: 03-22-2024 End: 03-22-2024 Patient encounter procedure 03/22/2024 1:50 PM EST Routine [facility] [address] [place] [phone] Tacho Menendez DO [address] [place] [address] [facility] Start: 03-22-2024 End: 03-22-2024 Professional / ancillary services management 03/22/2024 1:00 PM EST Ancillary Procedure [facility] [address] [place] [address] [facility] Start: 03-16-2024 End: 03-16-2024 Patient encounter procedure 03/16/2024 1:30 PM EST Routine [facility] [address] [facility] [address] Tacho Menendez DO [address] [facility] [address] [place], [place] [id number] [facility] Start: 02-23-2024 End: 02-22-2025 CBC panel - Blood by Automated count CBC Lab Routine Diabetes mellitus screening Expected: 02/23/2024 (Approximate), Expires: 02/22/2025 [facility] Work Phone: Comment on above: Expected: 02/23/2024 (Approximate), Expires: 02/22/2025 Start: 02-23-2024 End: 02-22-2025 Measurement of glucose 1 hour after glucose challenge for glucose tolerance test Glucose tolerance, 1 hour Lab Routine Diabetes mellitus screening Expected: 02/23/2024 (Approximate), Expires: 02/22/2025 [facility] Comment on above: Expected: 02/23/2024 (Approximate), Expires: 02/22/2025 Start: 02-23-2024 End: 02-22-2025 US for US OB SCAN FOR GROWTH Imaging Routine size inconsistent with dates H/O premature delivery Expected: 02/23/2024 (Approximate), Expires: 02/22/2025 [facility] Comment on above: Expected: 02/23/2024 (Approximate), Expires: 02/22/2025 Start: 02-23-2024 End: 02-23-2024 Patient encounter procedure 02/23/2024 1:40 PM EDT Routine [facility] [address] [facility] [place] [phone] Mena Ann PA [address] [facility] [place] [address] Arrived [facility] Comment on above: Arrived Start: 02-18-2024 End: 02-18-2024 Patient encounter procedure 02/18/2024 2:30 PM EDT Routine [facility] [address] [facility] [address] Mena Ann PA [address] [facility] [address] [place], [place] [id number] [facility] Start: 01-11-2024 COVID-19 Vaccine ( season) COVID-19 Vaccine () [facility] Start: 01-11-2024 Influenza vaccination N [facility] Start: 09-17-2023 End: 09-17-2023 Nutrition therapy 09/17/2023 2:30 PM EDT [facility] Nutrition Therapy [address] [place] [id number] Anna Ortiz, RD [address] [place] [address] Red/Davis/0 Diet/[place] Nutrition Therapy Comment on above: Red/Davis/0 Diet/ [place] Start: 09-12-2023 End: 09-12-2023 Admission to same day surgery center 09/12/2023 3:30 PM EDT [facility] General Surgery [address] [place] [address] Joo Bradley MD [address] [place] [address] Red/Kirk/0 Diet/[place] General Surgery Comment on above: Red/Kirk/0 Diet/Anth em Start: 09-05-2023 End: 09-05-2023 ambulatory 09/05/2023 11:45 AM EDT Results Only [facility] [address] [place] [address] [place] [address] [facility] Start: 08-20-2023 End: 11-19-2023 25-hydroxyvitamin D3 [Mass/volume] in Serum or Plasma VITAMIN D 25 HYDROXY Lab Routine Body mass index (BMI) of 50-59.9 in adult ([facility]) Expected: 08/20/2023, Expires: 11/19/2023 [facility] Work Phone: Comment on above: Expected: 08/20/2023 , Expires: 11/19/2023 Start: 08-20-2023 End: 11-19-2023 CBC W Auto Differential panel - Blood COMPLETE BLOOD COUNT AND DIFFERENTIAL Lab Routine Body mass index (BMI) of 50-59.9 in adult ([facility]) Expected: 08/20/2023, Expires: 11/19/2023 [facility] Work Phone: Comment on above: Expected: 08/20/2023 , Expires: 11/19/2023 Start: 08-20-2023 End: 11-19-2023 Cobalamin (Vitamin B12) [Mass/volume] in Serum or Plasma VITAMIN B12 Lab Routine Body mass index (BMI) of 50-59.9 in adult ([facility]) Expected: 08/20/2023, Expires: 11/19/2023 [facility] Work Phone: Comment on above: Expected: 08/20/2023 , Expires: 11/19/2023 Start: 08-20-2023 End: 11-19-2023 Comprehensive metabolic 2000 panel - Serum or Plasma COMPREHENSIVE METABOLIC PANEL Lab Routine High blood cholesterol Body mass index (BMI) of 50-59.9 in adult ([facility]) Expected: 08/20/2023, Expires: 11/19/2023 [facility] Work Phone: Comment on above: Expected: 08/20/2023 , Expires: 11/19/2023 Start: 08-20-2023 End: 11-19-2023 Ferritin [Mass/volume] in Serum or Plasma FERRITIN Lab Routine Body mass index (BMI) of 50-59.9 in adult ([facility]) Expected: 08/20/2023, Expires: 11/19/2023 [facility] Work Phone: Comment on above: Expected: 08/20/2023 , Expires: 11/19/2023 Start: 08-20-2023 End: 11-19-2023 Folate [Mass/volume] in Serum or Plasma FOLATE, SERUM Lab Routine Body mass index (BMI) of 50-59.9 in adult ([facility]) Expected: 08/20/2023, Expires: 11/19/2023 [facility] Work Phone: Comment on above: Expected: 08/20/2023 , Expires: 11/19/2023 Start: 08-20-2023 End: 11-19-2023 Helicobacter pylori IgG Ab [Presence] in Serum or Plasma by Immunoassay H PYLORI IGG AB Lab Routine Body mass index (BMI) of 50-59.9 in adult ([facility]) Expected: 08/20/2023, Expires: 11/19/2023 [facility] Work Phone: Comment on above: Expected: 08/20/2023 , Expires: 11/19/2023 Start: 08-20-2023 End: 11-19-2023 Hemoglobin A1c in Blood HEMOGLOBIN A1C Lab Routine Body mass index (BMI) of 50-59.9 in adult ([facility]) Expected: 08/20/2023, Expires: 11/19/2023 [facility] Work Phone: Comment on above: Expected: 08/20/2023 , Expires: 11/19/2023 Start: 08-20-2023 End: 11-19-2023 Iron and Iron binding capacity panel - Serum or Plasma IRON AND TIBC Lab Routine Body mass index (BMI) of 50-59.9 in adult ([facility]) Expected: 08/20/2023, Expires: 11/19/2023 [facility] Work Phone: Comment on above: Expected: 08/20/2023 , Expires: 11/19/2023 Start: 08-20-2023 End: 11-19-2023 Lipid 1996 panel - Serum or Plasma LIPID PANEL BASIC Lab Routine High blood cholesterol Body mass index (BMI) of 50-59.9 in adult ([facility]) Expected: 08/20/2023, Expires: 11/19/2023 [facility] Work Phone: Comment on above: Expected: 08/20/2023 , Expires: 11/19/2023 Start: 08-20-2023 End: 11-19-2023 Natriuretic peptide.B prohormone N-Terminal [Mass/volume] in Serum or Plasma NT PRO BNP Lab Routine Body mass index (BMI) of 50-59.9 in adult ([facility]) Expected: 08/20/2023, Expires: 11/19/2023 [facility] Work Phone: Comment on above: Expected: 08/20/2023 , Expires: 11/19/2023 Start: 08-20-2023 End: 11-19-2023 NICOTINE & METAB, UR NICOTINE & METAB, UR Lab Routine Body mass index (BMI) of 50-59.9 in adult ([facility]) Expected: 08/20/2023, Expires: 11/19/2023 [facility] Work Phone: Comment on above: Expected: 08/20/2023 , Expires: 11/19/2023 Start: 08-20-2023 End: 11-19-2023 Thyrotropin [Units/volume] in Serum or Plasma THYROID STIMULATING HORMONE Lab Routine Angel's thyroiditis Body mass index (BMI) of 50-59.9 in adult ([facility]) Expected: 08/20/2023, Expires: 11/19/2023 [facility] Work Phone: Comment on above: Expected: 08/20/2023 , Expires: 11/19/2023 Start: 08-20-2023 End: 11-19-2023 TOXICOLOGY SCREEN, ROUTINE URINE TOXICOLOGY SCREEN, ROUTINE URINE Lab Routine Body mass index (BMI) of 50-59.9 in adult ([facility]) Expected: 08/20/2023, Expires: 11/19/2023 [facility] Work Phone: Comment on above: Expected: 08/20/2023 , Expires: 11/19/2023 Start: 08-20-2023 End: 11-19-2023 VITAMIN B1 (THIAMINE), WHOLE BLOOD VITAMIN B1 (THIAMINE), WHOLE BLOOD Lab Routine Body mass index (BMI) of 50-59.9 in adult ([facility]) Expected: 08/20/2023, Expires: 11/19/2023 [facility] Work Phone: Comment on above: Expected: 08/20/2023 , Expires: 11/19/2023 Start: 05-12-2023 Behavioral Health Screening Behavioral Health Screening [facility] Start: 01-10-2023 Covid-19 Vaccine ( season) Covid-19 Vaccine () [facility] Start: 12-02-2021 Plain chest X-ray XR chest 1V portab le [facility] Start: 12-02-2021 XR Chest Single view [facility] Work Phone: Start: 2021 Screening for malign ant neoplasm of cervix HPV Testing [facility] Start: 2012 Screening for malign ant neoplasm of cervix Pap Testing [facility] Start: 2010 Hepatitis B Vaccine (1 of 3 - 19+ 3-dose series) Hepatitis B Vaccine (1 of 3 - 19+ 3-dose series) [facility] Start: 2009 Adult BMI Follow Up Plan Adult BMI Follow Up Plan [facility] Start: 2009 HIV screening HIV Screening [facility] Start: 2003 Depression Screening Depression [facility] Start: 2002 DTaP,Tdap and Td Vaccines (6 - Tdap) DTaP,Tdap and Td Vaccines (6 - Tdap) [facility] Start: 2002 Urine microalbumin profile DTaP,Tdap,Td Vaccine (6 - Tdap) [facility] End: 08-19-2024 ECG COMPLETE ECG COMPLETE ECG Routine Body mass index (BMI) of 50-59.9 in adult (HCC) 1 Occurrences starting 08/20/2023 until 08/19/2024 [facility] Work Phone: Comment on above: 1 Occurrences starti ng 08/20/2023 until 08/19/2024 Patient Education [facility] Work Phone: Patient referral [facility] Work Phone: Thyrotropin [Units/volume] in Serum or Plasma TSH Lab Routine Thyroid disease (CMS/HCC) Ordered: 04/22/2024 [facility] Comment on above: Ordered: 04/22/2024 End: 09-18-2024 US Abdomen RUQ US ABD RIGHT UPPER QUADRANT Radiology Routine Body mass index (BMI) of 50-59.9 in adult (HCC) 1 Occurrences starting 08/20/2023 until 09/18/2024 [facility] Work Phone: Comment on above: 1 Occurrences starti ng 08/20/2023 until 09/18/2024 End: 09-18-2024 XR Chest PA and Lateral XR CHEST 2V FRONTAL/LAT Radiology Routine Body mass index (BMI) of 50-59.9 in adult (HCC) 1 Occurrences starting 08/20/2023 until 09/18/2024 [facility] Work Phone: Comment on above: 1 Occurrences starti ng 08/20/2023 until 09/18/2024 [id number] 310 [facility] Work Phone: [facility] NEGATED: Highlighted row has been ruled out! Planned Goals not documented [id number]-Boymhe 310 IV[facility] Work Phone: Immunizations Immunization Date Immunization Notes Care Provider Sonia miramontes 03-11-2023 influenza virus vacc ine, unspecified formulation Tacho Menendez DO Work Phone: [facility] Healthcare Payers Date Payer Category Payer Self-pay [id number] 2022 Medicaid [id number] 2022 Medicaid [id number] [id number] 1991 Unknown [id number] 2.16.840.1.618855.3.579.2.59 3 1991 Unknown [id number] 2.16.840.1.881918.3.579.2.12 86 1991 Unknown [id number] 2.16.840.1.121392.3.579.2.12 86 1991 Unknown [id number] 2.16.840.1.166278.3.579.2.12 86 1991 Unknown [id number] 2.16.840.1.865132.3.579.2.12 86 1991 Unknown [id number] 2.16.840.1.700637.3.579.2.12 86 1991 Unknown [id number] 2.16.840.1.056356.3.579.2.12 59 1991 Unknown [id number] 2.16.840.1.639228.3.579.2.12 59 1991 Unknown [id number] 2.16.840.1.592487.3.579.2.12 59 1991 Unknown [id number] 2.16.840.1.772870.3.579.2.12 59 1991 Unknown [id number] 2.16.840.1.061737.3.579.2.12 59 1991 Unknown [id number] 2.16.840.1.072497.3.579.2.12 59 1991 Unknown [id number] 2.16.840.1.920274.3.579.2.12 59 1991 Unknown [id number] 2.16.840.1.064200.3.579.2.12 59 1991 Unknown [id number] 2.16.840.1.081138.3.579.2.12 59 1959 Medicaid [id number] Private Health Insurance [facility] [id number] Unknown [id number] Unknown Regular Insurance [id number] Unknown [employer] [id number] Unknown Regular Auto/Medical [id number] Unknown [id number] 2.16.840.1.344163.3.579.2.53 1 Unknown [id number] 2.16.840.1.598296.3.579.2.53 1 Unknown [id number] 2.16.840.1.306866.3.579.2.53 1 Unknown [id number] 2.16.840.1.161816.3.579.2.53 1 Social History Date Type Detail Facility Start: 12-02-2021 End: 05-17-2023 Tobacco smoking status NHIS Never smoked tobacco (finding) [facility] Start: 1990 Sex Assigned At Female F [facility] Start: 05-17-2023 End: 08-20-2023 Sex Assigned At Box Other Start: 05-17-2023 End: 08-20-2023 Tobacco use and exposure Smokeless tobacco non-user [facility] Work Phone: Start: 08-20-2023 End: 05-03-2024 Alcohol intake Current drinker of alcohol (finding) [facility] Start: 05-17-2023 End: 08-20-2023 History of Social function [facility] National Score (1-100), lower number is lower risk 86 [facility] Start: 08-20-2023 Alcohol Comment occ [facility] Start: 1990 Sex Assigned At Not on file C [facility] Start: 08-26-2023 Gender identity Identifies as female gender (finding) [facility] Start: 08-26-2023 Sexual orientation Heterosexual (brina beyer) [facility] Start: 09-14-2023 [facility] How often to you hav e a [...] Alcoholic beverage intake Ex-drinker (finding) [facility] Start: 12-13-2014 Sex Female (finding) [facility] NEGATED: Highlighted row - - [id number] 310 IVF Work Phone: Functional Status Date Assessment Result Facility NEGATED: Highlighted row Functional performance Functional status health issues are not documented Disease [id number] 310 IVF Work Phone: Mental Status Date Assessment Result Facility NEGATED: Highlighted row Cognitive function [Interpretation] Cognitive status health issues are not documented Disease [id number]-Rybexi 310 IV[facility] Work Phone: Clinical Notes 01-08-2023 [...] 06/2019 OTHER SURGICAL HISTORY 2020 IUI 07/10/20 [facility] SALPINGECTOMY Left 2011 ectopic REVIEW [...] of: GERARDO Vazquez documented in this encounter [facility] 04-22-2024 History of Presen t illness [...] smear following initial abnormal smear 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 Exam conducted with a nursery teacher present. Vitals: Estimated body mass index is [...] for routine OB appointment. Documented by Priscilla Fernanedz LPN on behalf of: Tacho Menendez DO documented in this encounter [facility] 04-06-2024 History of Presen t illness [...] 06/2019 OTHER SURGICAL HISTORY 2020 IUI 07/10/20 [facility] SALPINGECTOMY Left 2012 ectopic REVIEW OF SYSTEMS [...] of: GERARDO Vazquez documented in this encounter [facility] 03-22-2024 History of Presen t illness [...] Morbid obesity with BMI of 50.0-59.9, adult (CMS/[facility]) Vaginal delivery Social History Tobacco Use Smoking [...] 06/2019 OTHER SURGICAL HISTORY 2020 IUI 07/10/20 [facility] SALPINGECTOMY Left 2011 ectopic REVIEW [...] note reviewed. Exam conducted with a nursery teacher present. Vitals: Estimated body mass index is [...] Tacho Menendez DO documented in this encounter [facility] 02-23-2024 History of Presen t illness [...] Morbid obesity with BMI of 50.0-59.9, adult (CMS/[facility]) Vaginal delivery HISTORY PAST MEDICAL HISTORY SOCIAL HISTORY Past Medical History: Diagnosis Date Abdominal pain Breast pain, right Cholelithiasis Encounter for cervical smear to confirm findings of recent normal smear following initial abnormal smear Angel's disease (CMS/HCC) Hypothyroidism (CMS/HCC) Morbid obesity ([facility]) Morbid obesity with BMI of 50.0-59.9, adult ([facility]) Vaginal delivery Social History Tobacco Use Smoking [...] 06/2019 OTHER SURGICAL HISTORY 2020 IUI 07/10/20 [facility] SALPINGECTOMY Left 2011 ectopic REVIEW [...] note reviewed. Exam conducted with a nursery teacher present. Vitals: Estimated body mass index is [...] of: GERARDO Vazquez documented in this encounter [facility] 01-20-2024 History of Presen t illness [...] 06/2019 OTHER SURGICAL HISTORY 2020 IUI 07/10/20 [facility] SALPINGECTOMY Left 2011 ectopic REVIEW [...] note reviewed. Exam conducted with a nursery teacher present. Vitals: Estimated body mass index is [...] notified. Pt has follow up appt at [facility] in four weeks. Pt to return to office in four weeks for scheduled OB appt. Documented by Priscilla Fernandez LPN on behalf of: Tacho Menendez DO documented in this encounter [facility] 10-09-2023 Note HNO ID: [id number] Author: LATONIA GREENE, PhD Service: ? Author Type: Psychologist Type: Progress Notes Filed: 10/17/2023 11:09 Note Text: [facility] BARIATRIC SURGERY BEHAVIORAL HEALTH EVALUATION BMI Surgical Pathway Visit type: Psychology Visit DATE OF SERVICE: October 09, 2023 TIME OF SERVICE: 1:00 PM - 2:00 PM COST CENTER: [facility] CPT CODE: - [id number] Virtual Psych Diagnostic Eval BILLING CODE: ENDO PSYL MAIN Jerel DATE OF FIRST SERVICE THIS CYCLE: October 09, 2023 SESSION #: 1 I have communicated my name and active licensure. The patient's identity and physical location (see below) were verified at the time of this visit. Either the patient or their legal in home sales representative has been informed of the risks and benefits of -- and alternatives to -- treatment through a remote evaluation and consents to proceed with the evaluation remotely. This evaluation is NOT intended for forensic, disability or child custody purposes. The patient e-signed a copy of the consent form via [employer] [facility], fees for service, emergency [...] in case of emergency and/or disconnection. [address] [place] [address] ([facility], was mother) Alternate Electrical Continuity Tester Bibi Arrieta (Mother) [phone] (Home Phone) Patient identified the following plan to follow in case of emergency: Go to emergency room (nearest is [facility]) or call 911. IDENTIFYING INFORMATION: Ms. Jaleesa [...] pt has l (more content not included)... [facility] 09-22-2023 Telephone encounter Note Can not schedule patient as there is already a patient scheduled for that day and time. Please advise. Thanks Meme Castrejon [facility] 09-22-2023 Telephone encounter Note ----- Message from Anna Ortiz RD sent at 09/17/2023 3:17 PM EDT ----- Regarding: virtual follow up Please schedule for a virtual up 10/16 at 1. The patient is aware, no call needed. Thank you! Anna [facility] 09-22-2023 Miscellaneous Notes Can not schedule [...] Tonya Senior APRN.MERON documented in this encounter [facility] 09-17-[address] - 09/17/2023 3:12 PM EDT 1. Read Nutritional Guidelines Section of Your Guide to Surgery by next session [email or web address]/ [email or web address]?la=[email or web address] 2. Do not [...] full-liquid diet. Examples: Slim Fast Advanced Nutrition [place] Breakfast Essentials Light Start Drink mixed with [...] Bariatric Multivitamin and Calcium Citrate (total of 8833-9883 mg/day) * take calcium citrate separately from Multivitamin with iron at least 2 hours apart and 4 hours apart from additional calcium [email or web address] - Bariatric Choice: 4 Complete Multivitamins (chewables) per day [email or web address] - Bariatric Advantage: 2 Multivitamins and 3 Calcium Citrate Chewables per day * take calcium citrate separately from Multivitamin with iron at least 2 hours apart and 4 hours apart from additional calcium [email or web address] Start practicing eating slowly, chewing each bite of food 20-30 x per bite, making meals last 20-30 minutes, separatign food and fluids by 30 minutes . Have all meals and snacks at the table with no distractions. Make placemat for reminders; work towards normal sleep/wake pattern Pre-op goal weight: 281 pounds Protein needs: 85 grams per day documented in this encounter [facility] 09-17-2023 Note HNO ID: [id number] Author: ANNA ORTIZ RD Service: ? Author Type: Registered Dietitian Type: Progress Notes Filed: 09/17/2023 15:19 Note Text: [facility] Nutrition Therapy: Virtual Consult - Initial Assessment I have communicated my name and active licensure. The patient?s identity and physical location were verified at the time of this visit. Either the patient or their legal in home sales representative has been informed of the [...] Your Guide to Surgery by next session [email or web address] -/[email or web address]/files/[email or web address]/ [email or web address]?la=en 2. Do not [...] Examples: ? Slim Fast Advanced Nutrition ? [place] Breakfast Essentials ?Light Start? Drink mixed with [...] AM, 2 in the PM) www.bariatricfusion.com - [employer]: 1 Bariatric Multivitamin and Calcium Citrate (total of 9189-9583 mg/day) * take calcium citrate separately from Multivitamin with iron at least 2 hours apart and 4 hours apart from additional calcium [email or web address] - Bariatric Choice: 4 Complete Multivitamins (chewables) [...] and using Phen (more content not included)... [facility] 09-17-2023 History of Presen t illness Narrative [facility] Nutrition Therapy: Virtual Consult - Initial Assessment I have communicated my name and active licensure. The patient s identity and physical location were verified at the time of this visit. Either the patient or their legal in home sales representative has been informed of the [...] Your Guide to Surgery by next session [email or web address] -/[email or web address]/files/[email or web address]/ [email or web address]?la=en 2. Do not [...] full-liquid diet. Examples: Slim Fast Advanced Nutrition [place] Breakfast Essentials Light Start Drink mixed with [...] AM, 2 in the PM) www.bariatricfusion.com - [employer]: 1 Bariatric Multivitamin and Calcium Citrate (total of 2080-0153 mg/day) * take calcium citrate separately from Multivitamin with iron at least 2 hours apart and 4 hours apart from additional calcium www.Onit - Bariatric Choice: 4 Complete Multivitamins (chewables) per day Www.[email or web address] - Bariatric Advantage: 2 Multivitamins and 3 Calcium Citrate Chewables per day * take calcium citrate separately from Multivitamin with iron at least 2 hours apart and 4 hours apart from additional calcium [email or web address] Start practicing eating slowly, chewing each bite [...] suggested by 180 Initial weight: 295 lbs. [place] body weight is 155 lbs. Excess body weight is 140 lbs. Goal weight pre-op is 281 lbs. Protein needs are estimated at 85gm (1.2 - protein/kg IBW) Patient meets the National Institutes of Health guidelines for weight loss surgery and has [employer] therefore is required to complete 0 [...] TIME: 2:25 PM documented in this encounter [facility] 09-11-2023 Telephone encounter Note Attempted to call pt, re: hypothyroid and low vitamin d levels, no answer, left vm. Tonya Senior APRN.BURNISHING MACHINE OPERATOR [facility] 09-01-2023 Note HNO ID: [id number] Author: LATONIA GREENE, PhD Service: ? Author Type: Psychologist Type: Progress Notes Filed: 09/01/2023 13:22 Note Text: [facility] Progress Note 09/01/2023 Billing code: Jerel Patient did not attend, cancel, or reschedule this appointment. Provider left HIPAA compliant voicemail and MyChart message with contact information to reschedule. Latonia Greene, PhD Clinical Psychologist [facility] 09-01-2023 History of Presen t illness Narrative [facility] Progress Note 09/01/2023 Billing code: Jerel Patient did not attend, cancel, or reschedule this appointment. Provider left HIPAA compliant voicemail and MyChart message with contact information to reschedule. Latonia Greene PhD Clinical Psychologist documented in this encounter [facility] 08-20-2023 Note HNO ID: [id number] Author: TONYA SENIOR APRN.BURNISHING MACHINE OPERATOR Service: ? Author Type: Nurse Practitioner Type: Progress Notes Filed: 08/20/2023 16:21 Note Text: have communicated my name and active licensure. The patient's identity and physical location were verified at the time of this visit. Either the patient or their legal in home sales representative has been informed of the risks and benefits of -- and alternatives to -- treatment through a remote evaluation and consents to proceed with the evaluation remotely. BMI MEDICAL CONSULT I have communicated my name and active licensure. The patient's identity and physical location were verified at the time of this visit. Either the patient or their legal in home sales representative has been informed of the [...] index (BMI) of 50-59.9 in adult ([facility]) 08/20/2023 Angel's thyroiditis 08/20/2023 High blood cholesterol [...] index (BMI) of 50-59.9 in adult ([facility]) - ICD9: V85.43, ICD10: Z68.43 (primary diagnosis) Weight decreasing - Behavioral intervention, - Medical nutrition therapy with dietitian, and - Psychology - COMPLETE BLOOD COUNT AND DIFFERENTIAL - COMPREHENSIVE METABOLIC PANEL - FERRITIN - FOLATE, SERUM - HEMOGLOBIN A1C - (more content not included)... [employer] [employer] [facility] 08-20-2023 History of Presen t illness Narrative Images from the original note were not included. have communicated my name and active licensure. The patient's identity and physical location were verified at the time of this visit. Either the patient or their legal in home sales representative has been informed of the risks and benefits of -- and alternatives to -- treatment through a remote evaluation and consents to proceed with the evaluation remotely. BMI MEDICAL CONSULT I have communicated my name and active licensure. The patient's identity and physical location were verified at the time of this visit. 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 Please excuse errors in falsework builder. Jun, Dietary surveillance and counseling (ICD-10 - [...] for a goal of 5% weight reduction. Box Other 08-30-2023 Evaluation note* Encounter Date Diagnosis [...] on in the past and denies side adjdusv-Ssmkm-cm-care A1c today 5.4%-Follow up in clinic in 4 weeksThis note was created with voice recognition software. Please excuse errors in falsework builder. Dec, Dietary surveillance and counseling (ICD-10 - [...] premade protein drink for breakfast, by plain Namibian yogurt and flavor yourself with cinnamon or [...] with the patient, and documenting clinical information. Box Other Chief complaint+Reason for visit Narrative* Chief Complaint Obesity Reason for Visit Exercise counseling Severe obesity (BMI >= 40) [facility] Work Phone: Chief complaint+Reason for visit Narrative* Chief Complaint Pos test, Cramping, Vaginal bleeding Reason for Visit Exercise counseling Severe obesity (BMI >= 40) [facility] Work Phone: Evaluation noteNo assessment information available [facility] Work Phone: Evaluation note* Diagnosis Onset Date Resolution Status Exercise counseling acute Severe obesity (BMI >= 40) delilah kevin [facility] Work Phone: evaluation note* Diagnosis Body mass index (BMI) of 50-59.9 in adult ([facility])- Primary Body Mass Index 50.0-59.9, adult Angel's thyroiditis Chronic lymphocytic thyroiditis High blood cholesterol Pure hypercholesterolemia [facility] Diagnosis NO SHOW- Primary [facility]* Diagnosis Obesity, Class III, BMI 40-49.9 (morbid obesity) ([facility])- Primary Morbid obesity Dietary counseling Dietary surveillance and counseling [facility] [place]* Diagnosis Vitamin D deficiency- Primary Unspecified vitamin D deficiency [facility] [place] [facility]* Diagnosis 25 weeks gestation of Second trimester state, incidental Diabetes mellitus screening Screening for diabetes mellitus size inconsistent with dates H/O premature delivery documented in this encounter [facility]* Diagnosis Encounter for follow-up ultrasound of anatomy- Primary History of pre-eclampsia in prior , currently with other poor obstetric history History of delivery, currently with history of pre-term labor Obesity affecting in second trimester, unspecified obesity type [facility] Diagnosis Third trimester state, incidental 29 weeks gestation of documented in this encounter [facility]* Diagnosis Third trimester state, incidental 31 weeks gestation of H/O premature delivery documented in this encounter [facility]* Diagnosis 33 weeks gestation of Third trimester state, incidental H/O premature delivery Thyroid disease ([facility]) Unspecified disorder of thyroid H/O pre-eclampsia in [...] Fallopian tube removed Hospitalization History See Above Box Other Hospital Discharge instructions Additional Instructions You may take tfga-omo-xyefdac cough and cold medication as needed You may take mwcz-tbp-glrnalv Tylenol and/or ibuprofen as needed Increase oral fluids Follow-up with family doctor as needed Return to the ER for any acute difficulty breathing high fever vomiting [facility] Hospital Discharge instructions Additional Instructions Nothing into vagina until seen by PROFESSOR OF LAW May take Tylenol for discomfort Increase oral fluids Follow-up with PROFESSOR OF LAW Return to the ER for heavy bleeding greater than a pad an hour feeling dizzy lightheaded or any other concerns[facility] Phone: Hospital Discharge instructions Additional Instructions Follow-up with your OB in the next week.[facility] Work Phone: InstructionsNot on filedocumented in this encounter [facility] ([facility]ative[facility] Diagnostic Procedure Only (Routine) - Pending Review Specialty Diagnoses / Procedures Referred By Wendy campos Referred To Contact US IMAGING Diagnoses Body mass index (BMI) of 50-59.9 in adult (HCC) Procedures US ABD RIGHT UPPER QUADRANT US ABDOMINAL REAL TIME W/IMAGE LIMITED Tonya Senior, BURNISHING MACHINE OPERATOR [address] [place] [address] [place] [id number] Referral ID Status Reason Start Date Expiration Date Visits Requested Visits Authorized [id number] Pending Review Auto-Generat ed Referral 08/20/2023 09/18/2024 1 1 * Outpatient Procedure (Routine) - Pending Review Specialty Diagnoses / Procedures Referred By Wendy t [facility] Diagnoses Body mass index (BMI) of 50-59.9 in adult (HCC) Procedures ECG COMPLETE ECG ROUTINE ECG W/LEAST 12 LDS W/I&R Tonya Senior APRN.[facility] [address] [place] [address] [facility] [address] [place], [place] [id number] Referral ID Status Reason Start Date Expiration Date Visits Requested Visits Authorized [id number] Pending Review Auto-Generat ed Referral 08/20/2023 08/19/2024 1 1 [facility] Summary Purpose Family History No Family [...] and content) DATE CREATED AUTHOR 10/31/2017 [facility] [place] DATE CREATED AUTHOR AUTHOR'S ORGANIZ ATION 04/23/2020 [facility] DATE CREATED AUTHOR AUTHOR'S ORGANIZ ATION 08/08/2020 [facility] DATE CREATED AUTHOR AUTHOR'S ORGANIZ ATION 08/22/2020 [facility] ical Center DATE CREATED AUTHOR AUTHOR'S ORGANIZ ATION 06/11/2022 [facility] DATE CREATED AUTHOR AUTHOR'S ORGANIZ ATION 09/06/2023 [facility] DATE CREATED AUTHOR AUTHOR'S ORGANIZ ATION 10/03/2023 [facility] DATE CREATED AUTHOR AUTHOR'S ORGANIZ ATION 10/18/2023 [facility] DATE CREATED AUTHOR AUTHOR'S ORGANIZ ATION 01/20/2024 [facility] DATE CREATED AUTHOR AUTHOR'S ORGANIZ ATION 03/19/2024 [facility] DATE CREATED AUTHOR AUTHOR'S ORGANIZ ATION 04/30/2024 [facility] DATE CREATED AUTHOR AUTHOR'S ORGANIZ ATION 05/05/2024 [facility] d[facility] Special[facility] EPIC Care Teams (unrecognized sec [...] End: October 06, 2023 Marychuy Kyle , CHASSIS DRIVER-BC Emergency Provider Active Start: October 06, 2023 End: October 06, 2023 Team Status: Inactive Member Role Status Dates Services [facility] Primary Care Provider Active Start: February 26, 2024 End: February 26, 2024 Ck To PA-C Emergency Provider Active Start: February 26, 2024 End: February 26, 2024 Team Status: Inactive Member Role Status Dates Services [facility] Primary Care Provider Active Start: [...] or prosecute any alcohol or drug abuse patient.[facility] Hospital[facility] the event this information is protected by the Federal Confidentiality of Alcohol and Drug Abuse Patient Records regulations: The Federal rules restrict any use of the information to criminally investigate or prosecute any alcohol or drug abuse patient.[facility] HospitalIn the event this information is protected by the Federal Confidentiality of Alcohol and Drug Abuse Patient Records regulations: The Federal rules restrict any use of the information to criminally investigate or prosecute any alcohol or drug abuse patient.[facility] Hospital[facility] the event this information is protected by the Federal Confidentiality of Alcohol and Drug Abuse Patient Records regulations: The Federal rules restrict any use of the information to criminally investigate or prosecute any alcohol or drug abuse patient.[facility] HospitalIn the event this information is protected by the Federal Confidentiality of Alcohol and Drug Abuse Patient Records regulations: The Federal rules restrict any use of the information to criminally investigate or prosecute any alcohol or drug abuse patient.[facility] HospitalIn the event this information is protected by the Federal Confidentiality of Alcohol and Drug Abuse Patient Records regulations: The Federal rules restrict any use of the information to criminally investigate or prosecute any alcohol or drug abuse patient.[facility] FOR RECORDS PERTAINING TO PATIENTS WHO [...] BE BASED ON THE PRIMARY CLINICAL RECORDS. [facility]. provides no warranty or guarantee of the accuracy or completeness of information in this document.
--- NOTE | 2024-05-14 15:05 | US_ITS ---
[address] [address] Patient Name: FABRIZIO PAINTING MRN: [facility]:[id number] date: 1990 Sex: F Assigned Patient Location: [facility] Current Patient Location: Accession/Order Number: [id number] Exam Date: 05/14/2024 15:09 Report Date: 05/15/2024 00:08 At the request of: HENRY URBAN Procedure: US OB BPP w non-stress EXAMINATION: US OB BPP w non-stress HISTORY:H/O PREMATURE DELIVERY Z87.51 COMPARISON: Ultrasound OB biophysical 04/30/2024 TECHNIQUE: Ultrasound biophysical profile was performed in the radiology department. BREATHING MOVEMENTS: 2 GROSS BODY MOVEMENTS: 2 TONE: 2 QUALITATIVE AMNIOTIC FLUID VOLUME: 2 PRESENTATION: CEPHALIC HEART RATE: 159.76 bpm AMNIOTIC FLUID VOLUME: 12.30 cm GESTATIONAL AGE: 36 weeks 5 days US/US OB BPP w non-stress IMPRESSION: Total biophysical profile score: 8 Electronically authenticated by: FAM PHELPS Date: 05/15/2024 00:08
[2024-05-14 15:57] VITALS: BP 116/74; PULSE 93
== END 2024-05-14 16:20 | disposition home or self-care (01) ==
LOC: FBCO 01:20 → FBC 15:00
PROVIDERS: Visit Provider Physician Assistant
DX: O26.893 Other specified pregnancy related conditions, third trimester (principal); Z87.51 Personal history of pre-term labor; Z3A.36 36 weeks gestation of pregnancy
CPT/HCPCS: 76818

== ENCOUNTER 2024-05-17 20:24 | Outpatient (REF) | payer MEDICAID, SELFPAY ==
[2024-05-18 17:29] LABS: BOX Test Sent Out GROUP B STREP
[2024-05-18 17:30] LABS: BOX Test Reference Lab FIRELANDS
== END 2024-05-17 20:25 | disposition home or self-care (01) ==
LOC: LAB 20:24
PROVIDERS: Visit Provider Obstetrics & Gynecology
DX: Z34.93 Encounter for supervision of normal pregnancy, unspecified, third trimester (principal)
CPT/HCPCS: 36415; 87081

== ENCOUNTER 2024-05-19 01:04 | Outpatient (OUT) | payer MEDICAID, SELFPAY ==
[2024-05-19 20:43] VITALS: BP 130/80; PULSE 95
== END 2024-05-19 21:13 | disposition home or self-care (01) ==
LOC: FBCO 01:04 → FBC 20:38
PROVIDERS: Visit Provider Obstetrics & Gynecology
DX: O26.893 Other specified pregnancy related conditions, third trimester (principal); Z3A.38 38 weeks gestation of pregnancy
CPT/HCPCS: 59025

== ENCOUNTER 2024-05-22 00:32 | Outpatient (OUT) | payer MEDICAID, SELFPAY ==
--- OUTSIDE RECORDS SUMMARY | 2024-05-22 00:35 | XMS_ITS | CCD ---
Author Organization [facility] Care Team Providers Care Protection Mgr Name Role Phone Agustin Patton Unavailable Unavailable Agustin Patton Unavailable Unavailable Bayron Mccarty Unavailable Unavailable Unavailable Unavailable Unavailable Unavailable Unavailable Unavailable [facility] Primary Care Provider DEMETRIUS To Emergency Provider [phone] DR TACHO MENENDEZ Attending Unavailable DR TACHO MENENDEZ Consulting Unavailable DR TACHO MENENDEZ Admitting Unavailable [facility] Primary Care Provider Anabella [facility] Marychuy E Emergency Provider Nicholas Michaels Unavailable [facility] Primary Care Provider DO Nicholas Michaels Attending Provider [phone] Unavailable Primary Care Provider Unavailabl e Unavailable Primary Care Provider Unavailabl e LATONIA GREENE Attending Unavailable TONYA SENIOR Attending Unavailable [facility] Primary Care Provider Anabella [facility] Marychuy E Emergency Provider LATONIA GREENE Referring Unavailable LATONIA GREENE Attending Unavailable ANNA ORTIZ Attending Unavailable TONYA SENIOR Referring Unavailable TONYA SENIOR Referring Unavailable TACHO MENENDEZ Referring Unavailable MAKEDA GROSS Attending Unavailable TACHO MENENDEZ Referring Unavailable Unavailable Primary Care Provider Unavailabl e [facility] Primary Care Provider DEMETRIUS To Emergency Provider Unavailable Primary Care Provider Unavailabl DO Devika Christie Emergency Provider Ck To Attending Unavailable Ck To Admitting Unavailable [facility] Primary Care Unavaila Marychuy Rey Attending Unavailable Marychuy Kyle Admitting Unavailable [facility] Primary Care Unavaila Nicholas Willams Attending Unavailable Nicholas Michaels Admitting Unavailable [facility] Primary Care Unavaila ble [facility] Primary Care Unavaila Devika Hillman Attending Unavailable Devika De La Garza Admitting Unavailable SHON, TACHO R Referring Unavailable SHON, TACHO R Referring Unavailable SHON, TACHO R Referring Unavailable SHON, TACHO Attending Unavailable MARISSA, MENA Attending Unavailable SHON, TACHO Attending Unavailable MARISSA, MENA Attending Unavailable SHON, TACHO Attending Unavailable MARISSA, MENA Attending Unavailable SHON, TACHO Attending Unavailable MARISSA, MENA Attending Unavailable [facility] Primary Care Provider Ck To PA-C Emergency Provider [phone] Devika De La Garza DO Emergency Provider [phone] Tacho Menendez DO Attending Provider Medications Current Medications Medication Drug Class(es) Dates [...] / promethazine hydrochloride 1.25 mg/ml oral solution (3 sources) Phenothiazine, Uncompetitive V-iznaip-L-aspartate Receptor Antagonist, Sigma-1 Agonist Start: 02-26-2024 take 1 mL by mouth every six hours as needed for cough Promethazine-Dm 6.25-15 mg/5 mL syrup Active 5 ML PO Q6H as needed for cough February 25, 2024 11:00pm fluticasone propionate 0.05 mg/actuat metered dose nasal spray (3 sources) Corticosteroid Start: 02-26-2024 take 1 spray(s) nasal route twice daily Fluticasone Propionate (Flonase Allergy Relief) 50 mcg/actuation spray,suspension Active 1 SPRAY INTRANASAL Twice daily February 25, 2024 11:00pm administer into each nostril levothyroxine sodium 0.05 mg oral tablet (20 sources) l-Thyroxine Start: 11-18-2023 End: 02-16-2024 take 0.5 tablet by mouth once daily before mealtime levothyroxine (Synthroid, Levoxyl) 50 MCG tablet Indications: Elevated TSH TAKE 1/2 TABLET BY MOUTH EVERY MORNING BEFORE A MEAL 45 tablet 02/16/2024 Active Start: 05-11-2019 End: 07-28-2020 take 1 tablet by mouth once daily Levothyroxine 50 mcg tablet Discontinued 50 MCG PO Daily May 11, 2019 12:00am July 28, 2020 6:27pm magnesium oxide 400 mg oral tablet (20 sources) Start: 10-30-2023 End: 10-29-2024 take 1 tablet by mouth once daily magnesium oxide (Mag-Ox) 400 MG tablet Indications: headache in first trimester Take 1 tablet (400 mg) by mouth Daily 30 tablet 11 10/30/2023 10/29/2024 Active Sylvester (No Known Home Meds) (3 sources) Start: 10-06-2023 Sylvester (No Kn own Home Meds) Active October 06, 2023 12:00am Start: 06-18-2022 Sylvester (No Kn own Home Meds) Active June [...] tablet (20 sources) Start: 11-26-19 End: 11-26-19 MV & Min w/FA-DHA ( Gummies) 0.18-25 MG chewable tablet Indications: Missed menses Chew 25 mg Daily 30 tablet 11/26/2023 11/25/2024 Active Completed/Discontinued Medications Medication Drug Class(es) Dates Sig (Normalized) Sig (Original) acetaminophen 325 mg / oxyCODONE hydrochloride 5 mg oral tablet (8 sources) Opioid Agonist Start: 0 End: 1 take 1 tablet by mouth every four to six hours as needed for pain Oxycodone-Acetamino phen (Percocet) 5-325 mg tablet Discontinued 1 - 2 TAB PO EVERY 4-6 HOURS as needed for pain 14 3 July 20, 2019 July 28, 2020 6:27pm amoxicillin 500 mg oral tablet (8 sources) Penicillin-class Antibacterial Start: 2 End: 2 take 1 tablet by mouth twice daily Amoxicillin 500 mg tablet Discontinued 500 MG PO Twice daily 28 02July 08, 2021 12:00am December 02, 2021 7:17pm amoxicillin 875 mg / clavulanate 125 mg oral tablet (8 sources) Penicillin-class Antibacterial Start: 2 End: 3 take 1 tablet by mouth twice daily Amoxicillin-Pot Clavulanate 875-125 mg tablet Discontinued 1 TAB PO Twice daily December 01, 2021 11:00pm June 18, 2022 4:53pm azithromycin 250 mg oral tablet (10 sources) Macrolide Antimicrobial Start: 4 End: 4 azithromycin (Zithromax Z-Jayson) 250 MG tablet Indications: URI, acute As directed 6 tablet 03/16/2024 04/22/2024 Discontinued brompheniramine maleate 0.4 mg/ml / dextromethorphan hydrobromide 2 mg/ml / pseudoephedrine hydrochloride 6 mg/ml oral solution (8 sources) alpha-Adrenergic Agonist, Uncompetitive F-bpzclx-E-asparta te Receptor Antagonist, Sigma-1 Agonist Start: 2 End: 3 take 1 mL by mouth four times daily as needed Brompheniramine-Pse udoeph-Dm (Bromfed Dm) 2-30-10 mg/5 mL syrup Discontinued 5 ML PO Four times daily as needed for cold symptoms December 01, 2021 11:00pm June 18, 2022 4:53pm 0.5 ml choriogonadotropin juliana 0.5 mg/ml prefilled syringe (2 sources) Gonadotropin Start: 1 Ovidrel 250 MCG/0.5ML Subcutaneous Injectable INJECT SUBCUTANEOUSLY DIRECTED. Quantity: 1 Refills: 2 Bayron Mccarty MD Start : 19-Jun-2020 Active 0.5 ML Syringe cyclobenzaprine hydrochloride 10 mg oral tablet (8 sources) Muscle Relaxant Start: 7 End: 7 take 1 tablet by mouth three times daily as needed for muscle spasms Cyclobenzaprine 10 mg tablet Discontinued 10 MG PO Three times daily as needed for muscle spasm 9 May 02, 2017 12:00am May 04, 2017 12:00am May 05, 2017 12:03am ibuprofen 800 mg oral tablet (20 sources) Nonsteroidal Anti-inflammatory Drug Start: 2 End: 2 take 1 tablet by mouth every six hours as needed for pain Ibuprofen 800 mg tablet Discontinued 800 MG PO Q6H as needed for pain July 08, 2021 12:00am December 02, 2021 7:17pm Start: 07-20-2019 End: 07-28-2020 take 4 tablets by mouth every twenty-four hours for pain Ibuprofen 600 mg tablet Discontinued 600 MG PO EVERY 4-6 HOURS as needed for pain 28 11July 19, 2019 11:00pm July 28, 2020 6:27pm do not exceed 4 doses in a 24 hour period Start: 05-02-2017 End: 05-07-2017 take 1 tablet by mouth three times daily Ibuprofen 800 mg tablet Discontinued 800 MG PO Three times daily 15 May 02, 2017 12:00am May 06, 2017 12:00am May 07, 2017 12:02am labetalol hydrochloride 100 mg oral tablet (8 sources) beta-Adrenergic Foster Start: 12-31-2020 End: 07-04-2021 Labetalol 100 mg Tablet Discontinued MG TABLET Twice daily December 30, 2020 11:00pm July 04, 2021 9:48am Start: 12-31-2020 End: 07-04-2021 Labetalol Discontinued MG TA BLET Twice daily December 31, 2020 12:00am July [...] Bibiana ALFONSO, Bayron Start : 19-Jun-2020 Active omeprazole 20 mg delayed release oral tablet (8 sources) Proton Pump Inhibitor Start: 05-11-2019 End: 05-11-2019 take 1 tablet by mouth once daily Omeprazole Magnesium (Prilosec Otc) 20 mg Tablet,Delayed Release (Dr/Ec) Discontinued 20 MG PO Daily May 11, 2019 12:00am May 11, 2019 1:27am phentermine hydrochloride 37.5 mg oral tablet (20 sources) Sympathomimetic Amine Anorectic Start: 08-07-2023 End: 10-06-2023 take 1 tablet by mouth once daily Phentermine 37.5 mg tablet Discontinued 37.5 MG PO Daily August 06, 2023 11:00pm October 06, 2023 4:42pm Start: 06-13-2023 take 1 tablet by vidhya [...] MG PO Daily 0 June 26, 2019 11:58am July 28, 2020 6:27pm Dgwxgheh-Vlb-Fr-Fa () 1 mg Tablet (8 sources) Start: 12-31-2020 End: 07-04-2021 take 1 tablet by mouth once Vxixxudd-Anz-Tb-Fa () 1 mg Tablet Discontinued TAB PO December 30, 2020 11:00pm July 04, 2021 9:48am Start: 12-31-2020 End: 07-04-2021 take 1 tablet by mouth once Siyhtnjt-Jnd-Ea-F a () 1 mg Tablet Discontinued TAB PO December 31, 2020 12:00am July 04, 2021 10:48am progesterone 100 mg oral capsule (10 sources) Progesterone Start: 07-28-2020 End: 12-31-2020 Progesterone Micronized 100 mg capsule Discontinued 100 MG VAGINAL Twice daily July 27, 2020 11:00pm December 31, 2020 8:55am Start: 07-28-2020 End: 12-31-2020 Progesterone Micronized Disc ontinued 100 MG VAGINAL Twice daily July 28, 2020 12:00am December 31, 2020 9:55am Start: 06-19-2020 take 1 capsule by mo ut twice daily Progesterone Micronized 100 MG Oral Capsule TAKE 1 CAPSULE Twice daily insert capsules vaginally Quantity: 30 Refills: 3 Bayron Mccarty MD Start : 19-Jun-2020 Active sennosides, alf 8.6 mg oral tablet (1 source) take 4 tablets by mo uth every twenty-four hours Senna 8.6 MG 4 tablets as needed Orally Once a day Not-Taking/PRN Problems Active Problems Problem Classification Problem Date Documented Date Episodic/Chronic Abdominal pain (20 sources) Nonspecific abdominal pain; Translations: [Unspecified abdominal pain] 08-20-2020 Episodic Acute and chronic tonsillitis (8 sources) Acute tonsillitis; Translations: [Acute tonsillitis, unspecified] 07-08-2021 Episodic Acute bronchitis (8 sources) Acute bacterial bronchitis; Translations: [Acute bronchitis due to other specified organisms] 12-02-2021 Episodic Administrative/social admission (15 sources) Dietary counseling and surveillance; Translations: [Other specified counseling] Onset: 06-13-2023 Episodic Anxiety disorders (1 source) Anxiety disorder, unspecified; Translations: [Anxiety disorder, unspecified type] Onset: 10-09-2023 Chronic Biliary tract disease (8 sources) Biliary calculus; Translations: [Calculus of gallbladder and bile duct without cholecystitis without obstruction] 06-25-2019 Episodic Disorders of lipid metabolism (18 sources) Dyslipidemia; Translations: [Hyperlipidemia, unspecified] Onset: 08-20-2023 Chronic Female infertility (3 sources) Female infertility; Translations: [Female infertility] Chronic Gastritis and duodenitis (8 sources) Gastritis; Translations: [Gastritis, unspecified, without bleeding] 05-11-2019 Episodic Hemorrhage during ; abruptio placenta; placenta previa (14 sources) Bleeding from female genital tract during ; Translations: [Antepartum hemorrhage, unspecified, unspecified trimester] Onset: 10-06-2023 08-27-2020 Episodic Hypertension complicating ; childbirth and the [...] condition] Onset: 10-09-2023 Chronic Nausea and vomiting (8 sources) Nausea and vomiting; Translations: [Nausea with vomiting, unspecified] 06-25-2019 Episodic Nonspecific chest pain (8 sources) Atypical chest pain; Translations: [Other chest [...] trimester] Onset: 04-27-2024 Chronic Other complications of (8 sources) Abdominal pain in ; Translations: [Other specified related conditions, unspecified trimester] 07-28-2020 Episodic Other complications of (8 sources) Complication of , childbirth and/or the [...] Chronic Other nutritional; endocrine; and metabolic disorders (15 sources) Body mass index 40+ - severely [...] 01-19-2024 Chronic Other and delivery including normal (20 sources) Intrauterine ; Translations: [Encounter for supervision of normal , unspecified, unspecified trimester] 10-21-2020 Episodic Other screening for suspected conditions (not mental disorders or infectious disease) (9 sources) Encounter for screening for malignant neoplasm of cervix; Translations: [Encounter for other specified screening] Onset: 06-03-2022 Episodic Other upper respiratory infections (3 sources) Sinusitis; Translations: [Chronic sinusitis, unspecified] 02-26-2024 Chronic Other upper respiratory infections (16 sources) Pharyngitis; Translations: [Acute pharyngitis, unspecified] Onset: [...] [35 weeks gestation of ] 05-03-2024 Episodic Residual codes; unclassified (2 sources) Gestation period, 37 weeks; Translations: [37 weeks gestation of ] 05-17-2024 Episodic Sprains and strains (8 sources) Low back strain; Translations: [Strain of [...] Translations: [Cough, unspecified] Onset: 03-05-2024 Viral infection (2 sources) Acute viral disease; Translations: [Viral infection, unspecified] 03-05-2024 Episodic Past or Other Problems Problem Classification Problem Date Documented Da te Episodic/Chronic Other complications of (2 sources) Supervision of [...] [facility] Facility Urinalysis macro (dipstick) panel (U)on 05-17-2024 Bilirubin, UA Negative Negative - 4(70) +++ mg/dL [facility] Blood, UA Negative Negative - 50 Bradley/mcL [facility] Clarity, UA Clear [facility] Color, UA Jessica [facility] Glucose, UA Negative Negative - 1999(110) ++++ mg/dL [facility] Interpretation and review of laboratory results Abnormal [facility] Ketones, UA Negative Negative - 160(16) ++++ mg/dL [facility] Leukocytes, UA Positive Negative - 500+++ Gabby/mcL [facility] Comment on above: small Nitrite, UA Negative Negative - Positive [facility] pH, UA 6.5 5 - 9 [facility] Protein, UA Positive Negative - 1999(20) ++++ mg/dL [facility] Comment on above: 30 Spec Grav, UA 1.03 1 - 1.03 [facility] Urobilinogen, UA 0.2 0.2 - 12 mg/dL [facility] ALL THYROID STIM HORMONEon 1 07-04-2023 TSH Qn 2.422 m[IU]/L [facility] Urinalysis macro (dipstick) panel (U)on 05-03-2024 Bilirubin, UA Negative Negative - 4(70) +++ mg/dL [facility] Blood, UA Negative Negative - 50 Bradley/mcL [facility] Clarity, UA Clear [facility] Color, UA Yellow [facility] Glucose, UA Negative Negative - 1999(110) ++++ mg/dL [facility] Interpretation and review of laboratory results Abnormal [facility] Ketones, UA Negative Negative - 160(16) ++++ mg/dL [facility] Leukocytes, UA Positive Negative - 500+++ Gabby/mcL [facility] Comment on above: small Nitrite, UA Negative Negative - Positive [facility] pH, UA 6 5 - 9 [facility] Protein, UA Negative Negative - 1999(20) ++++ mg/dL [facility] Spec Grav, UA 1.03 1 - 1.03 [facility] Urobilinogen, UA 0.2 0.2 - 12 mg/dL [facility] Urinalysis macro (dipstick) panel (U)on 04-22-2024 Bilirubin, UA Negative Negative - 4(70) +++ mg/dL [facility] Blood, UA Negative Negative - 50 Bradley/mcL [facility] Clarity, UA Clear [facility] Color, UA Yellow [facility] Glucose, UA Negative Negative - 1999(110) ++++ mg/dL [facility] Interpretation and review of laboratory results Abnormal [facility] Ketones, UA Negative Negative - 160(16) ++++ mg/dL [facility] Leukocytes, UA Trace Negative - 500+++ Gabby/mcL [facility] Nitrite, UA Negative Negative - Positive [facility] pH, UA 6 5 - 9 [facility] Protein, UA Positive Negative - 1999(20) ++++ mg/dL [facility] Comment on above: 30 Spec Grav, UA 1.025 1 - 1.03 [facility] Urobilinogen, UA 1.0 0.2 - 12 mg/dL [facility] Urinalysis macro (dipstick) panel (U)on 04-06-2024 Bilirubin, UA Negative Negative - 4(70) +++ mg/dL [facility] Blood, UA Negative Negative - 50 Bradley/mcL [facility] Clarity, UA Clear [facility] Color, UA Yellow [facility] Glucose, UA Negative Negative - 1999(110) ++++ mg/dL [facility] Interpretation and review of laboratory results Abnormal [facility] Ketones, UA Negative Negative - 160(16) ++++ mg/dL [facility] Leukocytes, UA Positive Negative - 500+++ Gabby/mcL [facility] Comment on above: small Nitrite, UA Negative Negative - Positive [facility] pH, UA 7 5 - 9 [facility] Protein, UA Negative Negative - 1999(20) ++++ mg/dL [facility] Spec Grav, UA 1.02 1 - 1.03 [facility] Urobilinogen, UA 0.2 0.2 - 12 mg/dL [facility] Urinalysis macro (dipstick) panel (U)on 03-22-2024 Bilirubin, UA Positive Negative - 4(70) +++ mg/dL [facility] Blood, UA Negative Negative - 50 Bradley/mcL [facility] Clarity, UA Clear [facility] Color, UA Yellow [facility] Glucose, UA Negative Negative - 1999(110) ++++ mg/dL [facility] Interpretation and review of laboratory results Normal [facility] Ketones, UA Positive Negative - 160(16) ++++ mg/dL [facility] Leukocytes, UA Positive Negative - 500+++ Gabby/mcL [facility] Nitrite, UA Negative Negative - Positive [facility] pH, UA 7 5 - 9 [facility] Protein, UA Positive Negative - 1999(20) ++++ mg/dL [facility] Spec Grav, UA 1.025 1 - 1.03 [facility] Urobilinogen, UA 1.0 0.2 - 12 mg/dL [facility] ALL CBC WITH AUTO DIFFon BASOPHILS ABSOLUTE AUTO 0 [facility] Basophils/100 WBC (Bld) 0.5 % 0.2 - 2.0 % [facility] Eosinophils/100 WBC (Bld) 2.4 % 0.9 - 7.0 % [facility] Erythrocyte distribution width (RBC) [Ratio] 13.2 % 11.0 - 15.0 % [facility] Hematocrit (Bld) [Volume fraction] 33.2 % Low 36.0 - 48.0 % [facility] Hemoglobin (Bld) [Mass/Vol] 11.1 g/dL Low 12.0 - 16.0 g/dL [facility] IMMATURE GRANULOCYTES ABS AUTO 0.02 [facility] Immature granulocytes/100 WBC (Bld) 0.3 % 0.0 - 0.5 % [facility] Interpretation and review of laboratory results Abnormal [facility] LYMPHOCYTES ABSOLUTE AUTO 2.1 [facility] Lymphocytes/100 WBC (Bld) 32.5 % 20.5 - 60.0 % [facility] MCH (RBC) [Entitic mass] 30.5 pg 26.7 - 34.0 pg [facility] MCHC (RBC) [Mass/Vol] 33.4 g/dL 29.9 - 35.2 g/dL [facility] MCV (RBC) [Entitic vol] 91.2 fL 81.0 - 99.0 fL [facility] MONOCYTES ABSOLUTE AUTO 0.3 [facility] Monocytes/100 WBC (Bld) 4.6 % 1.7 - 12.0 % [facility] NEUTROPHILS ABSOLUTE AUTO 3.9 [facility] Neutrophils/100 WBC (Bld) 59.7 % 43.0 - 75.0 % [facility] Platelet mean volume (Bld) [Entitic vol] 9.3 fL Low 9.5 - 13.5 fL [facility] TBH EO # 0.2 [facility] TB PLT 342 [facility] TB RBC 3.64 Low [facility] TB WBC 6.6 [facility] BioFire Not Detectedon 03-05 BioFire Not Detected Not detected Normal Not Detecte T [facility] Comment on above: Result Comment: This is a duplicate RP2.1 COVID (PCR) result to be used for statistical tracking purpose only. PERFORMED BY: [place] [address] PATHOLOGIST [employer] LION STANLEY M.D. Performed By: #### B IOFIRECOVNOTDE, QS, RESP PANEL UPP. #### [facility] [address] COVID-19 Detected/Not Detect edOrdered By: Devika De La Garza on 03-05-2024 SARS-CoV-2 (COVID-19) RNA YANET+non-probe Ql (Nph) Not detected Not Detecte [facility] Comment on above: This is a duplicate RP2.1 COVID (PCR) result to be used for statistical tracking purpose only. ECG 12 lead ECGon 03-05-2024 ECG 12 lead ECG [facility] [place] [address] [place] [address] Electrocardiograph Report Signed Patient: Jaleesa Arrieta MR#: [id number] [birth year] : 1990 Acct:[id number] Age/Sex: 33 / F ADM Date: 03/05/24 Loc: ER Room: Type: [facility] ER Attending Dr: Ordering Provider: Devika De [...] Confirmed by DEVIKA DE LA GARZA DO ([id number]) on 03/06/2024 1:44:25 AM Referred By: Electronically Signed By: DEVIKA DE LA GARZA DO Transcribed By: MUS Signed By Devika De La Garza DO 03/06 0144 Normal [facility] Quick Strepon 03-05-2024 Quick Strep Streptococcus pyogen es Ag [Presence] in Throat by Rapid immunoassay Negative for Group A Strep Antigen Note 1 NOTE 2 Results are those of a screening test. NOTE 3 If clinically indicated please order a culture. NOTE 4 NOTE 5 Reference range = Negative PERFORMED BY: [place] [address] PATHOLOGIST [employer] HAND LION STANLEY M.D. Normal [facility] Comment on above: Performed By: #### B IOFIRECOVNOTDE, QS, RESP PANEL UPP. #### [address] Respiratory (Upper) Panel, P CRon 03-05-2024 [...] A H3 Blank Space ------ PERFORMED BY: [place] [address] PATHOLOGIST [employer] HAND LION STANLEY M.D. Normal [facility] Comment on above: Performed By: #### B IOFIRECOVNOTDE, QS, RESP PANEL UPP. #### [address] Respiratory pathogens DNA an d RNA panel - Nasopharynx by YANET with non-probe detectionOrdered By: Devika D eLa Garza on 03-05-2024 Respiratory pathogens DNA and RNA panel YANET+non-probe (Nph) Respiratory pathogens DNA and RNA panel - Nasopharynx by YANET with non-probe detection [facility] Respiratory pathogens DNA and RNA panel YANET+non-probe (Nph) [facility] Streptococcus pyogenes antig en detectionOrdered By: Devika De La Garza on 03-05-2024 S. pyogenes Ag Ql (Unsp spec) Streptococcus pyogenes antigen detection [facility] S. pyogenes Ag Ql (Unsp spec) [facility] XR chest 1V portableon 03-05 XR chest 1V portable [place] [address] XRay Report Signed Patient: Jaleesa Arrieta MR#: [id number] [birth year] : 1990 Acct:[id number] Age/Sex: 33 / F ADM Date: 03/05/24 Loc: ER Room: Type: [place] ER Attending Dr: Copies to: Devika De [...] Priscilla Cunningham M.D.03/05/2024 9:34 PM Dictation Location: [place] [address] Transcribed By: [facility] 03/05/242133 Dictated By: Priscilla Cunningham MD 03/05/242130 Signed By: 03/05/242133 Normal [facility] Quick Strepon 02-26-2024 Quick Strep Streptococcus pyogen es Ag [Presence] in Throat by Rapid immunoassay Negative for Group A Strep Antigen Note 1 NOTE 2 Results are those of a screening test. NOTE 3 If clinically indicated please order a culture. NOTE 4 NOTE 5 Reference range = Negative PERFORMED BY: [place] [address] PATHOLOGIST [employer] LION STANLEY M.D. Normal [facility] Comment on above: Performed By: #### Q S #### [facility] [address] Streptococcus pyogenes antig en detectionOrdered By: Ck To on 02-26-2024 S. pyogenes Ag Ql (Unsp spec) Streptococcus pyogenes antigen detection [facility] S. pyogenes Ag Ql (Unsp spec) [facility] Urinalysis macro (dipstick) panel (U)on 02-23-2024 Bilirubin, UA Negative Negative - 4(70) +++ mg/dL [facility] Blood, UA Negative Negative - 50 Bradley/mcL [facility] Clarity, UA Clear [facility] Color, UA Yellow [facility] Glucose, UA Negative Negative - 2000(110) ++++ mg/dL [facility] Interpretation and review of laboratory results Abnormal [facility] Ketones, UA Negative Negative - 160(16) ++++ mg/dL [facility] Leukocytes, UA Positive Negative - 500+++ Gabby/mcL [facility] Comment on above: small Nitrite, UA Negative Negative - Positive [facility] pH, UA 7 5 - 9 [facility] Protein, UA Negative Negative - 1999(20) ++++ mg/dL [facility] Spec Grav, UA 1.02 1 - 1.03 [facility] Urobilinogen, UA 0.2 0.2 - 12 mg/dL [facility] ALL THYROID STIM HORMONEon 0 01-26-2024 TSH Qn 2.645 m[IU]/L [facility] Urinalysis macro (dipstick) panel (U)on 01-20-2024 Bilirubin, UA Negative Negative - 4(70) +++ mg/dL [facility] Blood, UA Negative Negative - 50 Bradley/mcL [facility] Clarity, UA Clear [facility] Color, UA Yellow [facility] Glucose, UA Negative Negative - 1999(110) ++++ mg/dL [facility] Interpretation and review of laboratory results Abnormal [facility] Ketones, UA Negative Negative - 160(16) ++++ mg/dL [facility] Leukocytes, UA Trace Negative - 500+++ Gabby/mcL [facility] Nitrite, UA Negative Negative - Positive [facility] pH, UA 6.5 5 - 9 [facility] Protein, UA Negative Negative - 1999(20) ++++ mg/dL [facility] Spec Grav, UA 1.020 1 - 1.03 [facility] Urobilinogen, UA 0.2 0.2 - 12 mg/dL [facility] Alanine aminotransferase [En zymatic activity/volume] in Serum or PlasmaOrdered By: Marychuy Kyle on 10-06-2023 ALT [Catalytic activity/Vol] 13 U/L Normal 7-52 [facility] Comment on above: Performed By: #### C BC, CMP, HCGQNT #### [facility] [address] Albumin [Mass/volume] in Ser um or Plasma by Bromocresol green (BCG) dye binding methoOrdered By: Marychuy Kyle on 10-06-2023 Albumin BCG dye [Mass/Vol] 3.8 g/dL 3.5-5.7 [facility] Alkaline phosphatase [Enzyma tic activity/volume] in Serum or PlasmaOrdered By: Marychuy Jeronimosarinaore on 10-06-2023 ALP [Catalytic activity/Vol] 61 U/L Normal 34-104 [facility] Comment on above: Performed By: #### C BC, CMP, HCGQNT #### [address] Aspartate aminotransferase [ Enzymatic activity/volume] in Serum or PlasmaOrdered By: Marychuy Bullimore on 10-06-2023 AST [Catalytic activity/Vol] 13 U/L Normal 13-39 [facility] Comment on above: Performed By: #### C BC, CMP, HCGQNT #### [address] Automated basophil %Ordered By: Marychuy Kyle on 10-06-2023 Basophils/100 WBC (Bld) 0.6 % Normal . [facility] Comment on above: Performed By: #### C BC, CMP, HCGQNT #### [address] Automated basophil countOrde red By: Marychuy Anabella on 10-06-2023 Basophils (Bld) [#/Vol] 0.0 10*3/uL Normal 0.0-0.2 [facility] Comment on above: Result Comment: PERF ORMED BY: [place] [address] PATHOLOGIST [employer] LION STANLEY M.D. Performed By: #### C BC, CMP, HCGQNT #### [address] Automated blood monocyte cou ntOrdered By: Marychuy Anabella on 10-06-2023 Monocytes (Bld) [#/Vol] 0.5 10*3/uL Normal 0.0-0.8 [facility] Comment on above: Performed By: #### C BC, CMP, HCGQNT #### [address] Automated eosinophil %Ordere d By: Marychuy Bullimore on 10-06-2023 Eosinophils/100 WBC (Bld) 0.7 % Normal . [facility] Comment on above: Performed By: #### C BC, CMP, HCGQNT #### [facility] [address] [place] [address] Automated eosinophil countOr dered By: Marychuy Phaniimore on 10-06-2023 Eosinophils (Bld) [#/Vol] 0.1 10*3/uL Normal 0.0-0.45 [facility] Comment on above: Performed By: #### C BC, CMP, HCGQNT #### [facility] [address] [place] [address] Automated epithelial cells c ount in urine sediment (number/area)Ordered By: Marychuy Jeronimoimore on 10-06-2023 Epithelial cells Auto (Urine sed) [#/Area] 3-4 [HPF] 0-2 [facility] Automated monocyte %Ordered By: Marychuy Jreonimoimore on 10-06-2023 Monocytes/100 WBC (Bld) 6.7 % Normal . [facility] Comment on above: Performed By: #### C BC, CMP, HCGQNT #### [facility] [address] [place] [address] Automated neutrophil %Ordere d By: Marychuy Phaniimore on 10-06-2023 Neutrophils/100 WBC (Bld) 54.4 % Normal . [facility] Comment on above: Performed By: #### C BC, CMP, HCGQNT #### [facility] [address] [place] [address] Bacteria [Presence] in Urine by AutomatedOrdered By: Marychuy Phaniimore on 10-06-2023 Bacteria Auto Ql (U) None seen [HPF] None Seen [facility] Bilirubin Test strip Ql (U)O rdered By: Marychuy Phaniimore on 10-06-2023 Bilirubin Ql (U) Negative Negative [facility] Bilirubin.total [Mass/volume ] in Serum or PlasmaOrdered By: Marychuy Phaniimore on 10-06-2023 Bilirubin [Mass/Vol] 0.2 mg/dL Low 0.3-1.0 [facility] Comment on above: Performed By: #### C BC, CMP, HCGQNT #### [facility] [address] [place] [address] [place] Calcium [Mass/volume] in Ser um or PlasmaOrdered By: Marychuy Bullimore on 10-06-2023 Calcium [Mass/Vol] 9.4 mg/dL Normal 8.6-10.[address] [facility] Comment on above: Performed By: #### C BC, CMP, HCGQNT #### [facility] [address] Carbon dioxide, total [Moles /volume] in Serum or PlasmaOrdered By: Marychuy Bullimore on 10-06-2023 CO2 [Moles/Vol] 25.5 mmol/L Normal 21.0-31.0 [facility] Comment on above: Performed By: #### C BC, CMP, HCGQNT #### [facility] [address] [place] [address] [place] Chloride [Moles/volume] in S sondra or PlasmaOrdered By: Marychuy Bullimore on 10-06-2023 Chloride [Moles/Vol] 105 mmol/L Normal 98-107 [facility] Comment on above: Performed By: #### C BC, CMP, HCGQNT #### [facility] [address] [place] [address] Choriogonadotropin.beta subu nit [Units/volume] in Serum or PlasmaOrdered By: Marychuy Kyle on 10-06-2023 HCG.beta subunit Qn 2799.00 m[IU]/mL [facility] Comment on above: Approximate Approxim ate hCG Gestational Age Range (mIU/ml) (weeks)0.2-1 5-50 1-2 50-500 2-3 100-5,000 3-4 500-10,000 4-5 1,000-50,000 5-6 10,000-100,000 6-8 15,000-200,000 8-12 10,000-100,000 Color of Urine by AutoOrdere d By: Marychuy Kyle on 10-06-2023 Color (U) Yellow Normal Yellow [facility] Comment on above: Order Comment: NEED MORE SPECIMEN Name Collection Type:: Clean-Voided Midstream Performed By: #### A DDONUAPLUS #### [address] Complete Blood Count Auto Di ffon 10-06-2023 Mean Corpuscular HGB Conc 34.4 g/dL Normal 32.0-35.0 [facility] Comment on above: Performed By: #### C BC, CMP, HCGQNT #### [address] Monocytes/100 WBC (Bld) 17.37 % Normal 0.00-20.00 [facility] Comment on above: Performed By: #### C BC, CMP, HCGQNT #### [address] NRBC% 0.2 /100{WBC} Normal 0-0.5 [facility] Comment on above: Performed By: #### C BC, CMP, HCGQNT #### [address] Comprehensive Metabolic Pane panchito 10-06-2023 Albumin [Mass/Vol] 3.8 g/dL Normal 3.5-5.7 [facility] Comment on above: Performed By: #### C BC, CMP, HCGQNT #### [place] [address] [place] Creatinine Clr Calc Pharmacy 180.48 Normal [facility] Comment on above: Performed By: #### C BC, CMP, HCGQNT #### [place] [address] [place] GFR/1.73 sq M.predicted MDRD (S/P/Bld) [Vol rate/Area] mL/min/{1.73_m2} Normal [facility] Comment on above: Performed By: #### C BC, CMP, HCGQNT #### [address] Creatinine [Mass/volume] in Serum or PlasmaOrdered By: Marychuy Kyle on 10-06-2023 Creatinine [Mass/Vol] 0.63 mg/dL Normal 0.60-1.20 [facility] Comment on above: Performed By: #### C BC, CMP, HCGQNT #### [facility] [address] [place] [address] [place] Dipstick and Microscopicon 0 10-06-2023 Appearance (U) Clear Normal Clear [facility] Comment on above: Order Comment: NEED MORE SPECIMEN Name Collection Type:: Clean-Voided Midstream Performed By: #### A DDONUAPLUS #### [place] [address] [place] Bacteria,Urine None Seen Normal None Seen [facility] Comment on above: Order Comment: NEED MORE SPECIMEN Name Collection Type:: Clean-Voided Midstream Performed By: #### A DDONUAPLUS #### [place] [address] [place] Bilirubin,Urine Negative Normal Negative [facility] Comment on above: Order Comment: NEED MORE SPECIMEN Name Collection Type:: Clean-Voided Midstream Performed By: #### A DDONUAPLUS #### [place] [address] [place] Glucose Ql (U) Normal Normal Normal [facility] Comment on above: Order Comment: NEED MORE SPECIMEN Name Collection Type:: Clean-Voided Midstream Performed By: #### A DDONUAPLUS #### [place] [address] [place] Hyaline Casts,Urine 0-8 Normal 0-[address] [facility] Comment on above: Order Comment: NEED MORE SPECIMEN Name Collection Type:: Clean-Voided Midstream Result Comment: PERF ORMED BY: [place] [address] PATHOLOGIST [employer] STANLEY M.D. Performed By: #### A DDONUAPLUS #### [place] [address] [place] Ketones Ql (U) Negative Normal Negative [facility] Comment on above: Order Comment: NEED MORE SPECIMEN Name Collection Type:: Clean-Voided Midstream Performed By: #### A DDONUAPLUS #### [address] Leukocyte esterase Test strip Ql (U) 1+ High Negative [facility] Comment on above: Order Comment: NEED MORE SPECIMEN Name Collection Type:: Clean-Voided Midstream Performed By: #### A DDONUAPLUS #### [place] [address] [place] Nitrite,Urine Negative Normal Negative [facility] Comment on above: Order Comment: NEED MORE SPECIMEN Name Collection Type:: Clean-Voided Midstream Performed By: #### A DDONUAPLUS #### [address] Occult Blood,Urine Negative Normal Negative [facility] Comment on above: Order Comment: NEED MORE SPECIMEN Name Collection Type:: Clean-Voided Midstream Result Comment: PERF ORMED BY: [place] [address] PATHOLOGIST [employer] STANLEY M.D. Performed By: #### A DDONUAPLUS #### [place] [address] [place] Protein,Urine Negative Normal Negative [facility] Comment on above: Order Comment: NEED MORE SPECIMEN Name Collection Type:: Clean-Voided Midstream Performed By: #### A DDONUAPLUS #### [address] RBC LM.HPF (Urine sed) [#/Area] 0 /[HPF] Normal 0-4 [facility] Comment on above: Order Comment: NEED MORE SPECIMEN Name Collection Type:: Clean-Voided Midstream Performed By: #### A DDONUAPLUS #### [address] Specificy [place],Urine 1.017 Normal 1.001-1.030 [facility] Comment on above: Order Comment: NEED MORE SPECIMEN Name Collection Type:: Clean-Voided Midstream Performed By: #### A DDONUAPLUS #### [address] Squamous Epithelial Cell,Urine 3-4 High 0-2 [facility] Comment on above: Order Comment: NEED MORE SPECIMEN Name Collection Type:: Clean-Voided Midstream Performed By: #### A DDONUAPLUS #### [address] Urobilinogen,Urine Normal Normal Normal [facility] Comment on above: Order Comment: NEED MORE SPECIMEN Name Collection Type:: Clean-Voided Midstream Performed By: #### A DDONUAPLUS #### [address] WBC,Urine 3-4 Normal 0-4 [facility] Comment on above: Order Comment: NEED MORE SPECIMEN Name Collection Type:: Clean-Voided Midstream Performed By: #### A DDONUAPLUS #### [address] Erythrocyte distribution wid th [Ratio] by Automated countOrdered By: Marychuy Wangore on 10-06-2023 Erythrocyte distribution width (RBC) [Ratio] 13.4 % Normal 11.9-15.3 [facility] Comment on above: Performed By: #### C BC, CMP, HCGQNT #### [address] Erythrocytes [#/area] in Uri ne sediment by Automated countOrdered By: Marychuy Bullimore on 10-06-2023 RBC Auto (Urine sed) [#/Area] 0-1 [HPF] 0-4 [facility] Erythrocytes [#/volume] in B lood by Automated countOrdered By: Marychuy Bullimore on 10-06-2023 RBC (Bld) [#/Vol] 4.08 10*6/uL Normal 3.60-5.00 [facility] Comment on above: Performed By: #### C BC, CMP, HCGQNT #### [address] Glucose [Mass/volume] in Ser um or PlasmaOrdered By: Marychuy Kyle on 10-06-2023 Glucose [Mass/Vol] 100 mg/dL Normal 70-[address] [facility] Comment on above: ADA recommended refe rence rangeRandom Glucose Reference Range is dependent on time and content of last meal. Glucose of more than 200 mg/dL in a nonstressed, ambulatory subject supports the diagnosis of Diabetes Mellitus. Result Comment: [place] om Glucose Reference Range is dependent on time and content of last meal. Glucose of more than 200 mg/dL in a nonstressed, ambulatory subject supports the diagnosis of Diabetes Mellitus. ADA recommended reference range Performed By: #### C BC, CMP, HCGQNT #### [address] HCG,Quantitativeon HCG,Quantitative 2799.00 m[iU]/mL Normal [facility] Comment on above: Result Comment: Appr oximate Approximate hCG Gestational Age Range (mIU/ml) (weeks) 0.2-1 5-50 1-2 50-500 2-3 100-5,000 3-4 500-10,000 4-5 1,000-50,000 5-6 10,000-100,000 6-8 15,000-200,000 8-12 10,000-100,000 PERFORMED BY: [place] [address] PATHOLOGIST [employer] L[employer] STANLEY M.D. Performed By: #### C BC, CMP, HCGQNT #### [address] Hematocrit [Volume Fraction] of Blood by Automated countOrdered By: Marychuy Kyle on 10-06-2023 Hematocrit (Bld) [Volume fraction] 36.7 % Normal 34.0-46.4 [facility] Comment on above: Performed By: #### C BC, CMP, HCGQNT #### [address] Hemoglobin [Mass/volume] in BloodOrdered By: Marychuy Kyle on 10-06-2023 Hemoglobin (Bld) [Mass/Vol] 12.6 g/dL Normal 11.8-15.4 [facility] Comment on above: Performed By: #### C BC, CMP, HCGQNT #### [facility] [address] Ketones Auto test strip (U) [Mass/Vol]Ordered By: Marychuy Kyle on 10-06-2023 Ketones (U) [Mass/Vol] Negative Negative [facility] Laboratory - UrinalysisOrder ed By: Marychuy Jeronimoimore on 10-06-2023 Hyaline casts LM Ql (Urine sed) 0-8 [LPF] 0-8 [facility] Leukocytes [#/area] in Urine sediment by Automated countOrdered By: Marychuy Jeronimoimore on 10-06-2023 WBC Auto (Urine sed) [#/Area] 3-4 [HPF] 0-4 [facility] Leukocytes [#/volume] correc inocencia for nucleated erythrocytes in Blood by Automated counOrdered By: Marychuy Jeronimoimore on 10-06-2023 WBC corrected for nucl RBC Auto (Bld) [#/Vol] 7.4 10*3/uL 3.8-11.6 [facility] Leukocytes [#/volume] in Blo od by Automated countOrdered By: Marychuy Kyle on 10-06-2023 WBC (Bld) [#/Vol] 7.4 10*3/uL Normal 3.8-11.[address] [facility] Comment on above: Performed By: #### C BC, CMP, HCGQNT #### [facility] [address] [place] [address] [place] Lymphocytes [#/volume] in Bl ood by Automated countOrdered By: Marychuy Jeronmioimore on 10-06-2023 Lymphocytes (Bld) [#/Vol] 2.8 10*3/uL Normal 1.00-4.8 [facility] Comment on above: Performed By: #### C BC, CMP, HCGQNT #### [facility] [address] [place] [address] [place] Lymphocytes/100 leukocytes i n Blood by Automated countOrdered By: Marychuy Wangore on 10-06-2023 Lymphocytes/100 WBC (Bld) 37.6 % Normal . [facility] Comment on above: Performed By: #### C BC, CMP, HCGQNT #### [facility] [address] [place] [address] MCH [Entitic mass] by Automa inocencia countOrdered By: Marychuy Jeronimoimore on 10-06-2023 MCH (RBC) [Entitic mass] 31.0 pg Normal 24.7-34.3 [facility] Comment on above: Performed By: #### C BC, CMP, HCGQNT #### [address] MCHC Auto (RBC) [Mass/Vol]Or dered By: Marychuy Bullimore on 10-06-2023 MCHC (RBC) [Mass/Vol] 34.4 g/dL 32.0-35.0 [facility] MCV [Entitic volume] by Auto mated countOrdered By: Marychuy Kyle on 10-06-2023 MCV (RBC) [Entitic vol] 90.1 fL Normal 80-100 [facility] Comment on above: Performed By: #### C BC, CMP, HCGQNT #### [address] Monocyte distribution width [Entitic volume] in Blood by AutomatedOrdered By: Marychuy Kyle on 10-06-2023 Monocyte distribution width Auto (Bld) [Entitic vol] 17.37 % 0.00-20.00 [facility] Neutrophils [#/volume] in Bl ood by Automated countOrdered By: Marychuy Kyle on 10-06-2023 Neutrophils (Bld) [#/Vol] 4.0 10*3/uL Normal 1.8-7.7 [facility] Comment on above: Performed By: #### C BC, CMP, HCGQNT #### [address] Nitrite Test strip Ql (U)Ord ered By: Marychuy Kyle on 10-06-2023 Nitrite Ql (U) Negative Negative [facility] No Panel InformationOrdered By: Marychuy Kyle on 05-27-2024 Estimated GFR (CKD-EPI) > 60.0 mL/Min [facility] Pharmacy Creatinine Clearance (Chem 180.48 [facility] Nucleated erythrocytes [Pres ence] in Blood by Automated countOrdered By: Marychuy Kyle on 10-06-2023 Nucleated RBC Auto Ql (Bld) 0.2 /100{WBC} 0-0.5 [facility] Platelet mean volume [Entiti c volume] in Blood by Automated countOrdered By: Marychuy Bullimore on 10-06-2023 Platelet mean volume (Bld) [Entitic vol] 7.5 fL Normal 6.3-10.7 [facility] Comment on above: Performed By: #### C BC, CMP, HCGQNT #### [facility] [address] [place] [address] Platelets [#/volume] in Bloo d by Automated countOrdered By: Marychuy Kyle on 10-06-2023 Platelets (Bld) [#/Vol] 367 10*3/uL Normal 150-450 [facility] Comment on above: Performed By: #### C BC, CMP, HCGQNT #### [facility] [address] [place] [address] [place] Potassium [Moles/volume] in Serum or PlasmaOrdered By: Marychuy Kyle on 10-06-2023 Potassium [Moles/Vol] 4.1 mmol/L Normal 3.5-5.1 [facility] Comment on above: Performed By: #### C BC, CMP, HCGQNT #### [facility] [address] [place] [address] [place] Protein Auto test strip (U) [Mass/Vol]Ordered By: Marychuy Kyle on 10-06-2023 Protein (U) [Mass/Vol] Negative Negative [facility] Protein [Mass/volume] in Ser um or PlasmaOrdered By: Marychuy Phaniimore on 10-06-2023 Protein [Mass/Vol] 7.4 g/dL Normal 6.4-8.[address] [facility] Comment on above: Performed By: #### C BC, CMP, HCGQNT #### [facility] [address] [place] [address] [place] Serum globulin measurement b y calculation (mass/volume)Ordered By: Marychuy Bullimore on 10-06-2023 Globulin (S) [Mass/Vol] 3.6 g/dL [facility] Comment on above: Performed By: #### C BC, CMP, HCGQNT #### [facility] [address] [place] [address] Serum or plasma albumin/glob ulin mass ratioOrdered By: Marychuy Bullimore on 10-06-2023 Albumin/Globulin [Mass ratio] 1.1 {ratio} [facility] Comment on above: Performed By: #### C BC, CMP, HCGQNT #### [address] Serum or plasma anion gap de terminationOrdered By: Marychuy Bullimore on 10-06-2023 Anion gap [Moles/Vol] 12.6 mmol/L Normal 6.0-15.0 [facility] Comment on above: Performed By: #### C BC, CMP, HCGQNT #### [address] Sodium [Moles/volume] in Ser um or PlasmaOrdered By: Marychuy Bullimore on 10-06-2023 Sodium [Moles/Vol] 139 mmol/L Normal 136-[address] [facility] Comment on above: Performed By: #### C BC, CMP, HCGQNT #### [address] Specific gravity Auto test s trip (U) [Rel density]Ordered By: Marychuy Bullimore on 10-06-2023 Specific gravity (U) [Rel density] 1.017 1.001-1.030 [facility] Urea nitrogen [Mass/volume] in Serum or PlasmaOrdered By: Marychuy Bullimore on 10-06-2023 Urea nitrogen [Mass/Vol] 7 mg/dL Normal 7-25 [facility] Comment on above: Performed By: #### C BC, CMP, HCGQNT #### [facility] [address] [place] [address] Urine clarity by refractomet ry automatedOrdered By: Marychuy Kyle on 10-06-2023 Clarity Refractometry automated (U) Clear Clear [facility] Urine glucose measurement by automated test strip (mass/volume)Ordered By: Marychuy Kyle on 10-06-2023 Glucose Auto test strip (U) [Mass/Vol] Normal mg/dL Normal [facility] Urine hemoglobin detection b y automated test stripOrdered By: Marychuy Kyle on 10-06-2023 Hemoglobin Auto test strip Ql (U) Negative Negative [facility] Urine leukocyte esterase det ection by automated test stripOrdered By: Marychuy Kyle on 10-06-2023 Leukocyte esterase Auto test strip Ql (U) 1+ Negative [facility] Urine pH measurement by auto mated test stripOrdered By: Marychuy Kyle on 10-06-2023 pH (U) 7.0 [pH] Normal 5.0-9.0 [facility] Comment on above: Order Comment: NEED MORE SPECIMEN Name Collection Type:: Clean-Voided Midstream Performed By: #### A DDONUAPLUS #### [facility] [address] Urobilinogen Auto test strip (U) [Mass/Vol]Ordered By: Marychuy Kyle on 10-06-2023 Urobilinogen (U) [Mass/Vol] Normal mg/dL Normal [facility] MERONN Telephone (MARTIN) -------- JALEESA ARRIETA ([id number]) 1990 F Date Time Provider Department 09/11/23 TONYA SENIOR During your visit today, we recorded the following information about you: Tonya Senior APRN.BOOKING CLERK 09/11/2023 11:19 AM Signed Attempted to call [...] Date Reviewed: 08/20/2023 Reviewed by: Tonya Senior APRN.BOOKING CLERK - Fully Assessed Reason for Visit: Results [...] Encounter Status:Closed by TONYA SENIOR on 09/23/23 [facility] NICOTINE AND METAB, URon URIN ANABASINE QUANT <5 Normal [facility] Comment on above: Order Comment: Speci men Type: URINE SPECIMEN Ordering Facility: [facility] Address: [address] [place] [address] Performed By: #### U NICOT #### [facility] CLIA [id number] [address] [place], [place] [id number] URIN COTININE QUANT <15 Normal [facility] Comment on above: Order Comment: Speci men Type: URINE SPECIMEN Ordering Facility: [facility] Address: [address] [place] [address] Performed By: #### U NICOT #### [facility] CLIA [id number] [address] [place] [address] URIN NICOTINE QUANT <15 Normal [facility] Comment on above: Order Comment: Speci men Type: URINE SPECIMEN Ordering Facility: [facility] Address: [address] [place] [address] Result Comment: INTE RPRETIVE INFORMATION: Nicotine and Metabolites, Urine, Quantitative Methodology: Quantitative Liquid Chromatography-Tandem Mass Spectrometry Positive cutoff: Nicotine 15 ng/mL Cotinine 15 ng/mL 1-RN-Hovfqmzt 50 ng/mL Anabasine 5 ng/mL For medical [...] developed and its performance characteristics determined by [facility]. It has not been cleared or approved by the [place] Food and Drug Administration. This test was performed in a CLIA certified laboratory and is intended for clinical purposes. Performed By: [facility] [address] [place] [address] Park Police: Rex Zuleta MD, PhD CLIA Number: [id number] Performed By: #### U NICOT #### [facility] CLIA [id number] [address] [place] [address] URINE 3 [place] COTININE <50 Normal [facility] Comment on above: Order Comment: Speci men Type: URINE SPECIMEN Ordering Facility: [facility] Address: [address] [place] [address] Performed By: #### U NICOT #### [id number] [address] [place] [address] TOXICOLOGY SCREEN, ROUTINE U RINEon 09-08-2023 Amphetamines Confirm (U) [Mass/Vol] Negative Normal Negative [facility] Comment on above: Order Comment: Speci men Type: URINE SPECIMEN Ordering Facility: [facility] Address: [address] [place] [address] Result Comment: Cuto ff threshold at 1000 ng/mL. Performed By: #### U TOX2 #### [facility] CLIA [id number] [address] [place] [address] [place] BARBITURATES, URINE Negative Normal Negative [facility] Comment on above: Order Comment: Speci men Type: URINE SPECIMEN Ordering Facility: [facility] Address: [address] [place] [address] Result Comment: Cuto ff threshold at 200 ng/mL. Performed By: #### U TOX2 #### [facility] CLIA [id number] [address] [place] [address] [place] BENZODIAZEPINES, UR Negative Normal Negative [facility] Comment on above: Order Comment: Speci men Type: URINE SPECIMEN Ordering Facility: [facility] Address: [address] [place] [address] Result Comment: Cuto ff threshold at 200 ng/mL. Performed By: #### U TOX2 #### [facility] CLIA [id number] [address] [place] [address] [place] Cannabinoids Screen Ql (U) Negative Normal Negative [facility] Comment on above: Order Comment: Speci men Type: URINE SPECIMEN Ordering Facility: [facility] Address: [address] [place] [address] Result Comment: Cuto ff threshold at 50 ng/mL. Performed By: #### U TOX2 #### [facility] CLIA [id number] [address] [place] [address] [place] Cocaine Ql (U) Negative Normal Negative [facility] Comment on above: Order Comment: Speci men Type: URINE SPECIMEN Ordering Facility: [facility] Address: [address] [place] [address] Result Comment: Cuto ff threshold at 300 ng/mL. Performed By: #### U TOX2 #### [facility] CLIA [id number] [address] [place] [address] [place] Ethanol (U) [Mass/Vol] <11 Normal <11 [facility] Comment on above: Order Comment: Speci men Type: URINE SPECIMEN Ordering Facility: [facility] Address: [address] [place] [address] Performed By: #### U TOX2 #### [facility] CLIA [id number] [address] [place] [address] [place] Opiates Screen Ql (U) Negative Normal Negative [facility] Comment on above: Order Comment: Speci men Type: URINE SPECIMEN Ordering Facility: [facility] Address: [address] [place] [address] Result Comment: Cuto ff threshold at 300 ng/mL. Performed By: #### U TOX2 #### [facility] CLIA [id number] [address] [place] [id number] [address] [place] oxyCODONE cutoff Screen (U) [Mass/Vol] Negative Normal Negative [facility] Comment on above: Order Comment: Speci men Type: URINE SPECIMEN Ordering Facility: [facility] Address: [address] [place] [address] Result Comment: Cuto ff threshold at 100 ng/mL. Performed By: #### U TOX2 #### [facility] CLIA [id number] [address] [place] [address] [place] Phencyclidine Ql (U) Negative Normal Negative [facility] Comment on above: Order Comment: Speci men Type: URINE SPECIMEN Ordering Facility: [facility] Address: [address] [place] [address] Result Comment: Cuto ff threshold at 25 ng/mL. Performed By: #### U TOX2 #### [facility] CLIA [id number] [address] [place] [address] [place] 25(OH)D3 SerPl-ncon 2023 25-hydroxyvitamin D3 [Mass/Vol] 11.9 ng/mL Low 31.0-80.0 [facility] Comment on above: Order Comment: Speci men Type: BLOOD SPECIMEN Ordering Facility: [facility] Address: [address] [place] [address] Performed By: #### 2 276-4, 2131-9, 2283-8 #### [facility] CLIA [id number] [address] [place] [address] [place] CBC W Auto Differential pane l (Bld)on 09-05-2023 Basophils (Bld) [#/Vol] 10*3/uL Normal <0.11 [facility] Comment on above: Order Comment: Speci men Type: BLOOD SPECIMEN Ordering Facility: [facility] Address: [address] [place] [address] Performed By: #### 2 276-4, 2131-9, 2283-8 #### [facility] CLIA [id number] [address] [place] [address] [place] Basophils/100 WBC (Bld) 0.3 % Normal [facility] Comment on above: Order Comment: Speci men Type: BLOOD SPECIMEN Ordering Facility: [facility] Address: [address] [place] [address] Performed By: #### 2 276-4, 2132-01, 2283-12 #### [facility] CLIA [id number] [address] [place] [address] [place] Differential cell count method Nom (Bld) Auto Normal [facility] Comment on above: Order Comment: Speci men Type: BLOOD SPECIMEN Ordering Facility: [facility] Address: [address] [place] [address] Performed By: #### 2 276-4, 2132-01, 2283-12 #### [facility] CLIA [id number] [address] [place] [address] [place] Eosinophils (Bld) [#/Vol] 0.09 10*3/uL Normal <0.46 [facility] Comment on above: Order Comment: Speci men Type: BLOOD SPECIMEN Ordering Facility: [facility] Address: [address] [place] [address] Performed By: #### 2 276-4, 2132-01, 2283-12 #### [facility] CLIA [id number] [address] [place] [address] [place] Eosinophils/100 WBC (Bld) 1.3 % Normal [facility] Comment on above: Order Comment: Speci men Type: BLOOD SPECIMEN Ordering Facility: [facility] Address: [address] [place] [address] Performed By: #### 2 276-4, 2132-01, 2283-12 #### [facility] CLIA [id number] [address] [place] [address] [place] Erythrocyte distribution width (RBC) [Ratio] 12.6 % Normal 11.5-15.0 [facility] Comment on above: Order Comment: Speci men Type: BLOOD SPECIMEN Ordering Facility: [facility] Address: [address] [place] [address] Performed By: #### 2 276-4, 2132-01, 2283-12 #### [facility] CLIA [id number] [address] [place] [address] [place] Hematocrit (Bld) [Volume fraction] 38.0 % Normal 36.0-46.0 [facility] Comment on above: Order Comment: Speci men Type: BLOOD SPECIMEN Ordering Facility: [facility] Address: [address] [place] [address] Performed By: #### 2 276-4, 2132-01, 2283-12 #### [facility] CLIA [id number] [address] [place] [address] [place] Hemoglobin (Bld) [Mass/Vol] 12.8 g/dL Normal 11.5-15.5 [facility] Comment on above: Order Comment: Speci men Type: BLOOD SPECIMEN Ordering Facility: [facility] Address: [address] [place] [address] Performed By: #### 2 276-4, 2132-01, 2283-12 #### [facility] CLIA [id number] [address] [place] [address] [place] Immature granulocytes (Bld) [#/Vol] 10*3/uL Normal <0.10 [facility] Comment on above: Order Comment: Speci men Type: BLOOD SPECIMEN Ordering Facility: [facility] Address: [address] [place] [address] Performed By: #### 2 276-4, 2132-01, 2283-12 #### [facility] CLIA [id number] [address] [place] [address] [place] Immature granulocytes/100 WBC (Bld) 0.1 % Normal [facility] Comment on above: Order Comment: Speci men Type: BLOOD SPECIMEN Ordering Facility: [facility] Address: [address] [place] [address] Performed By: #### 2 276-4, 2132-01, 2283-12 #### [facility] CLIA [id number] [address] [place] [address] [place] Lymphocytes (Bld) [#/Vol] 3.49 10*3/uL Normal 1.00-4.00 [facility] Comment on above: Order Comment: Speci men Type: BLOOD SPECIMEN Ordering Facility: [facility] Address: [address] [place] [address] Performed By: #### 2 276-4, 2132-01, 2283-12 #### [facility] CLIA [id number] [address] [place] [address] [place] Lymphocytes/100 WBC (Bld) 48.6 % Normal [facility] Comment on above: Order Comment: Speci men Type: BLOOD SPECIMEN Ordering Facility: [facility] Address: [address] [place] [address] Performed By: #### 2 276-4, 2132-01, 2283-12 #### [facility] CLIA [id number] [address] [place] [address] [place] MCH (RBC) [Entitic mass] 30.0 pg Normal 26.0-34.0 [facility] Comment on above: Order Comment: Speci men Type: BLOOD SPECIMEN Ordering Facility: [facility] Address: [address] [place] [address] Performed By: #### 2 276-4, 2132-01, 2283-12 #### [facility] CLIA [id number] [address] [place] [address] [place] MCHC (RBC) [Mass/Vol] 33.7 g/dL Normal 30.5-36.0 [facility] Comment on above: Order Comment: Speci men Type: BLOOD SPECIMEN Ordering Facility: [facility] Address: [address] [place] [address] Performed By: #### 2 276-4, 2132-01, 2283-12 #### [facility] CLIA [id number] [address] [place] [address] [place] MCV (RBC) [Entitic vol] 89.2 fL Normal 80.0-100.0 [facility] Comment on above: Order Comment: Speci men Type: BLOOD SPECIMEN Ordering Facility: [facility] Address: [address] [place] [address] Performed By: #### 2 276-4, 9, 2283-12 #### [facility] CLIA [id number] [address] [place] [address] [place] Monocytes (Bld) [#/Vol] 0.48 10*3/uL Normal <0.87 [facility] Comment on above: Order Comment: Speci men Type: BLOOD SPECIMEN Ordering Facility: [facility] Address: [address] [place] [address] Performed By: #### 2 276-4, 2132-01, 2283-12 #### [facility] CLIA [id number] [address] [place] [address] [place] Monocytes/100 WBC (Bld) 6.7 % Normal [facility] Comment on above: Order Comment: Speci men Type: BLOOD SPECIMEN Ordering Facility: [facility] Address: [address] [place] [address] Performed By: #### 2 276-4, 2132-01, 2283-12 #### [facility] CLIA [id number] [address] [place] [address] [place] Neutrophils (Bld) [#/Vol] 3.09 10*3/uL Normal 1.45-7.50 [facility] Comment on above: Order Comment: Speci men Type: BLOOD SPECIMEN Ordering Facility: [facility] Address: [address] [place] [address] Performed By: #### 2 276-4, 2132-01, 2283-12 #### [facility] CLIA [id number] [address] [place] [address] [place] Neutrophils/100 WBC (Bld) 43.0 % Normal [facility] Comment on above: Order Comment: Speci men Type: BLOOD SPECIMEN Ordering Facility: [facility] Address: [address] [place] [address] Performed By: #### 2 276-4, 2132-01, 2283-12 #### [facility] CLIA [id number] [address] [place] [address] [place] Nucleated RBC (Bld) [#/Vol] 10*3/uL Normal <0.01 [facility] Comment on above: Order Comment: Speci men Type: BLOOD SPECIMEN Ordering Facility: [facility] Address: [address] [place] [address] Performed By: #### 2 276-4, 2132-01, 2283-12 #### [facility] CLIA [id number] [address] [place] [address] [place] Nucleated RBC/100 WBC (Bld) [Ratio] 0.0 /100 WBC Normal [facility] Comment on above: Order Comment: Speci men Type: BLOOD SPECIMEN Ordering Facility: [facility] Address: [address] [place], [place] [address] Performed By: #### 2 276-4, 2132-01, 2283-12 #### [facility] CLIA [id number] [address] [place] [address] [place] Platelet mean volume (Bld) [Entitic vol] 9.2 fL Normal 9.0-12.7 [facility] Comment on above: Order Comment: Speci men Type: BLOOD SPECIMEN Ordering Facility: [facility] Address: [address] [place] [address] Performed By: #### 2 276-4, 2132-01, 2283-12 #### [facility] CLIA [id number] [address] [place] [address] [place] Platelets (Bld) [#/Vol] 361 10*3/uL Normal 150-400 [facility] Comment on above: Order Comment: Speci men Type: BLOOD SPECIMEN Ordering Facility: [facility] Address: [address] [place] [address] Performed By: #### 2 276-4, 2132-01, 2283-12 #### [facility] CLIA [id number] [address] [place] [address] [place] RBC (Bld) [#/Vol] 4.26 10*6/uL Normal 3.90-5.20 [facility] Comment on above: Order Comment: Speci men Type: BLOOD SPECIMEN Ordering Facility: [facility] Address: [address] [place] [address] Performed By: #### 2 276-4, 2132-01, 2283-12 #### [facility] CLIA [id number] [address] [place] [address] [place] WBC (Bld) [#/Vol] 7.18 10*3/uL Normal 3.70-11.00 [facility] Comment on above: Order Comment: Speci men Type: BLOOD SPECIMEN Ordering Facility: [facility] Address: [address] [place] [address] Performed By: #### 2 276-4, 2132-01, 2283-12 #### [facility] CLIA [id number] [address] [place], [place] [id number] [place] Comprehensive metabolic 2000 panelon 09-05-2023 Albumin [Mass/Vol] 4.0 g/dL Normal 3.9-4.9 [facility] Comment on above: Order Comment: Speci men Type: BLOOD SPECIMEN Ordering Facility: [facility] Address: [address] [place] [address] Performed By: #### 2 4323-8 #### [facility] CLIA [id number] [address] [place] [address] ALP [Catalytic activity/Vol] 91 U/L Normal 34-123 [facility] Comment on above: Order Comment: Speci men Type: BLOOD SPECIMEN Ordering Facility: [facility] Address: [address] [place] [address] Performed By: #### 2 4323-8 #### [facility] CLIA [id number] [address] [place] [address] ALT [Catalytic activity/Vol] 15 U/L Normal 7-38 [facility] Comment on above: Order Comment: Speci men Type: BLOOD SPECIMEN Ordering Facility: [facility] Address: [address] [place] [address] Performed By: #### 2 4323-8 #### [facility] CLIA [id number] [address] [place] [address] Anion gap [Moles/Vol] 10 mmol/L Normal 9-18 [facility] Comment on above: Order Comment: Speci men Type: BLOOD SPECIMEN Ordering Facility: [facility] Address: [address] [place] [address] Performed By: #### 2 4323-8 #### [facility] CLIA [id number] [address] [place] [address] AST [Catalytic activity/Vol] 13 U/L Normal 13-35 [facility] Comment on above: Order Comment: Speci men Type: BLOOD SPECIMEN Ordering Facility: [facility] Address: [address] [place] [address] Performed By: #### 2 4323-8 #### [facility] CLIA [id number] [address] [place] [address] Bilirubin [Mass/Vol] 0.3 mg/dL Normal 0.2-1.3 [facility] Comment on above: Order Comment: Speci men Type: BLOOD SPECIMEN Ordering Facility: [facility] Address: [address] [place] [address] [place] [address] Performed By: #### 2 4323-8 #### [facility] CLIA [id number] [address] [place] [address] Calcium [Mass/Vol] 9.5 mg/dL Normal 8.5-10.2 [facility] Comment on above: Order Comment: Speci men Type: BLOOD SPECIMEN Ordering Facility: [facility] Address: [address] [place] [id number] Performed By: #### 2 4323-8 #### [facility] CLIA [id number] [address] [place] [address] Chloride [Moles/Vol] 106 mmol/L High 97-105 [facility] Comment on above: Order Comment: Speci men Type: BLOOD SPECIMEN Ordering Facility: [facility] Address: [address] [place] [address] Performed By: #### 2 4323-8 #### [facility] CLIA [id number] [address] [place] [address] CO2 [Moles/Vol] 26 mmol/L Normal 22-30 [facility] Comment on above: Order Comment: Speci men Type: BLOOD SPECIMEN Ordering Facility: [facility] Address: [address] [place] [id number] Performed By: #### 2 4323-8 #### [facility] CLIA [id number] [address] [place] [address] Creatinine [Mass/Vol] 0.75 mg/dL Normal 0.58-0.96 [facility] Comment on above: Order Comment: Speci men Type: BLOOD SPECIMEN Ordering Facility: [facility] Address: [address] [place] [address] Performed By: #### 2 4323-8 #### [facility] CLIA [id number] [address] [place] [address] Creatinine and Glomerular filtration rate.predicted panel (S/P/Bld) 109 mL/min/1.73m??? Normal >=60 [facility] Comment on above: Order Comment: Laury bradshaw Type: BLOOD SPECIMEN Ordering Facility: [facility] Address: [address] [place] [address] Result Comment: Stephani mated Glomerular Filtration Rate [...] [facility] CLIA [id number] [address] [place] [address] Glucose [Mass/Vol] 104 mg/dL High 74-99 [facility] Comment on above: Order Comment: Laury bradshaw Type: BLOOD SPECIMEN Ordering Facility: [facility] Address: [address] [place], [place] [id number] Result Comment: The [place] [employer] (ADA) provides guidance for cutoff [...] Standards of Medical Care in Diabetes 2016, [place] [employer]. Diabetes Care. 2016.39(Suppl 1). Performed By: #### 2 4323-8 #### [facility] CLIA [id number] [address] [place] [address] Potassium [Moles/Vol] 4.2 mmol/L Normal 3.7-5.1 [facility] Comment on above: Order Comment: Laury bradshaw Type: BLOOD SPECIMEN Ordering Facility: [facility] Address: [address] [place] [address] Performed By: #### 2 4323-8 #### [facility] CLIA [id number] [address] [place] [address] Protein [Mass/Vol] 7.4 g/dL Normal 6.3-8.0 [facility] Comment on above: Order Comment: Speci men Type: BLOOD SPECIMEN Ordering Facility: [facility] Address: [address] [place] [address] Performed By: #### 2 4323-8 #### [facility] CLIA [id number] [address] [place] [address] Sodium [Moles/Vol] 142 mmol/L Normal 136-144 [facility] Comment on above: Order Comment: Speci men Type: BLOOD SPECIMEN Ordering Facility: [facility] Address: [address] [place] [address] Performed By: #### 2 4323-8 #### [facility] CLIA [id number] [address] [place] [address] Urea nitrogen [Mass/Vol] 12 mg/dL Normal 7-21 [facility] Comment on above: Order Comment: Speci men Type: BLOOD SPECIMEN Ordering Facility: [facility] Address: [address] [place] [address] Performed By: #### 2 4323-8 #### [facility] CLIA [id number] [address] [place] [address] Ferritin SerPl-mCncon 2023 Ferritin [Mass/Vol] 86.7 ng/mL Normal 14.7-205.1 [facility] Comment on above: Order Comment: Speci men Type: BLOOD SPECIMEN Ordering Facility: [facility] Address: [address] [place] [address] Performed By: #### 2 276-4, 2132-9, 2284-8 #### [facility] CLIA [id number] [address] [place] [address] [place] Folate SerPl-mCncon 09-05-19 Folate [Mass/Vol] 12.0 ng/mL Normal >4.7 [facility] Comment on above: Order Comment: Laury bradshaw Type: BLOOD SPECIMEN Ordering Facility: [facility] Address: [address] [place] [address] Performed By: #### 2 276-4, 2-9, 8 #### [facility] CLIA [id number] [address] [place] [address] [place] H. pylori IgG IA Qlon 2023 H. PYLORI IGG, QUAL Negative Normal Negative [facility] Comment on above: Order Comment: Laury bradshaw Type: BLOOD SPECIMEN Ordering Facility: [facility] Address: [address] [place] [address] Result Comment: Cash ot exclude H. pylori infection if the specimen collected 3-4 weeks after onset of symptoms. Performed By: #### 2 276-4, 9, 2283-12 #### [facility] CLIA [id number] [address] [place] [address] [place] HbA1c (Bld)on 09-05-2023 Average glucose Estimated from glycated hemoglobin (Bld) [Mass/Vol] 108 mg/dL Normal [facility] Comment on above: Order Comment: Laury bradshaw Type: BLOOD SPECIMEN Ordering Facility: [facility] Address: [address] [place] [address] Result Comment: eAG: (Estimated average glucose) is a calculated value from HgbA1c and is sales representative printing paper of the average blood glucose level in the last 2-3 month period. Performed By: #### 5 5454-3 #### [facility] CLIA [id number] [address] [place] [address] [place] HbA1c (Bld) [Mass fraction] 5.4 % Normal 4.3-5.6 [facility] Comment on above: Order Comment: Laury bradshaw Type: BLOOD SPECIMEN Ordering Facility: [facility] Address: [address] [place] [address] Result Comment: Amer ican Diabetes Association guidelines indicate that patients with HgbA1c in the range 5.7-6.4% are at increased risk for development of diabetes, and intervention by lifestyle modification may be beneficial. HgbA1c greater or equal to 6.5% is considered diagnostic of diabetes. Performed By: #### 5 5454-3 #### [facility] CLIA [id number] [address] [place] [address] [place] Iron and Iron binding capaci ty panelon 09-05-2023 Iron [Mass/Vol] 94 ug/dL Normal 41-186 [facility] Comment on above: Order Comment: Speci men Type: BLOOD SPECIMEN Ordering Facility: [facility] Address: [address] [place] [address] Performed By: #### 5 0190-8, 3016-3, 41813-7 #### [facility] CLIA [id number] [address] [place] [address] [place] #### 16881-1 #### [facility] CLIA [id number] [address] [place] [address] [place] [facility] CLIA [id number] [address] [place] [address] Iron binding capacity [Mass/Vol] 310 ug/dL Normal 232-386 [facility] Comment on above: Order Comment: Speci men Type: BLOOD SPECIMEN Ordering Facility: [facility] Address: [address] [place] [address] Performed By: #### 5 0190-8, 6-3, 41234-3 #### [facility] CLIA [id number] [address] [place] [address] [place] #### 73077-2 #### [facility] CLIA [id number] [address] [place] [address] [place] [facility] CLIA [id number] [address] [place] [address] Iron/TIBC [Molar ratio] 30.3 % Normal 15.0-57.0 [facility] Comment on above: Order Comment: Speci men Type: BLOOD SPECIMEN Ordering Facility: [facility] Address: [address] [place] [address] Performed By: #### 5 0190-8, 3016-3, 39687-1 #### [facility] CLIA [id number] [address] [place] [address] [place] #### 40299-7 #### [facility] CLIA [id number] [address] [place] [address] [place] [facility] CLIA [id number] [address] [place] [address] Lipid 1996 panelon 4 Cholesterol [Mass/Vol] 179 mg/dL Normal <200 [facility] Comment on above: Order Comment: Speci men Type: BLOOD SPECIMEN Ordering Facility: [facility] Address: [address] [place] [address] Result Comment: <200 mg/dL, Desirable 200-239 mg/dL, Borderline high >239 mg/dL, High Performed By: #### 2 276-4, 2132-01, 2283-12 #### [facility] CLIA [id number] [address] [place] [address] [place] Cholesterol in HDL [Mass/Vol] 45 mg/dL Normal >39 [facility] Comment on above: Order Comment: Speci men Type: BLOOD SPECIMEN Ordering Facility: [facility] Address: [address] [place] [address] Result Comment: 40-5 9 mg/dL, Acceptable >59 mg/dL, High: Negative risk factor for coronary heart disease <40 mg/dL, Low: Positive risk factor for coronary heart disease Performed By: #### 2 276-4, 2132-01, 2283-12 #### [facility] CLIA [id number] [address] [place] [address] [place] Cholesterol in LDL [Mass/Vol] 119 mg/dL High <100 [facility] Comment on above: Order Comment: Laury men Type: BLOOD SPECIMEN Ordering Facility: [facility] Address: [address] [place] [address] Result Comment: <100 mg/dL, Optimal 100-129 mg/dL, Near optimal/above optimal 130-159 mg/dL, Borderline high 160-189 mg/dL, High >189 mg/dL, Very high Secondary prevention optimal LDL Cholesterol levels are recommended to be < 70 mg/dL Performed By: #### 2 276-4, 2132-01, 2283-12 #### [facility] CLIA [id number] [address] [place] [address] [place] Cholesterol in LDL/Cholesterol in HDL [Mass ratio] 2.64 {ratio} High <2.54 [facility] Comment on above: Order Comment: Laury bradshaw Type: BLOOD SPECIMEN Ordering Facility: [facility] Address: [address] [place] [address] Result Comment: Refe rence: 1. National Cholesterol Education Program ATP III Guideline At-A-Glance Quick Desk Reference: National Heart, Lung, and Blood [place]. National Institutes of Health. 2001: NIH Publication No. 01-3305. 2. An International Atherosclerosis Society position paper: global recommendations for the management of dyslipidemia: executive summary, Atherosclerosis. 2014: 232(2):410-413. Performed By: #### 2 276-4, 2132-01, 2283-12 #### [facility] CLIA [id number] [address] [place] [address] [place] Cholesterol in VLDL [Mass/Vol] 15 mg/dL Normal <30 [facility] Comment on above: Order Comment: Laury bradshaw Type: BLOOD SPECIMEN Ordering Facility: [facility] Address: [address] [place] [address] Performed By: #### 2 276-4, 2132-01, 2283-12 #### [facility] CLIA [id number] [address] [place] [place] [address] [place] Cholesterol non HDL [Mass/Vol] 134 mg/dL High <130 [facility] Comment on above: Order Comment: Speci men Type: BLOOD SPECIMEN Ordering Facility: [facility] Address: [address] [place] [address] Result Comment: <130 mg/dL, Optimal 130-159 mg/dL, Near optimal/above optimal 160-189 mg/dL, Borderline high 190-219 mg/dL, High >219 mg/dL, Very high Secondary prevention optimal non HDL Cholesterol levels are recommended to be <100 mg/dL Performed By: #### 2 276-4, 2132-01, 2283-12 #### [facility] CLIA [id number] [address] [place] [address] [place] Cholesterol.total/Cho lesterol in HDL [Mass ratio] 3.98 {ratio} Normal <5.10 [facility] Comment on above: Order Comment: Speci men Type: BLOOD SPECIMEN Ordering Facility: [facility] Address: [address] [place] [address] Performed By: #### 2 276-4, 2132-01, 2283-12 #### [facility] CLIA [id number] [address] [place] [address] [place] FASTING TIME 12 hrs Normal [facility] Comment on above: Order Comment: Speci men Type: BLOOD SPECIMEN Ordering Facility: [facility] Address: [address] [place] [address] Performed By: #### 2 276-4, 2132-01, 2283-12 #### [facility] CLIA [id number] [address] [place] [address] [place] Triglyceride [Mass/Vol] 74 mg/dL Normal <150 [facility] Comment on above: Order Comment: Speci men Type: BLOOD SPECIMEN Ordering Facility: [facility] Address: [address] [place] [address] Result Comment: <150 mg/dL, Normal 150-199 mg/dL, Borderline high 200-499 mg/dL, High >499 mg/dL, Very high Performed By: #### 2 276-4, 9, 2283-12 #### [facility] CLIA [id number] [address] [place] [address] [place] NT-proBNP SerPl-mCncon 09-04 Natriuretic peptide.B prohormone N-Terminal [Mass/Vol] 48 pg/mL Normal <125 [facility] Comment on above: Order Comment: Speci men Type: BLOOD SPECIMEN Ordering Facility: [facility] Address: [address] [place] [address] Performed By: #### 2 276-4, 2132-01, 2283-12 #### [facility] CLIA [id number] [address] [place] [address] [place] TSH SerPl-aCncon 09-05-2023 TSH Qn 6.440 m[IU]/L High 0.270-4.200 [facility] Comment on above: Order Comment: Speci men Type: BLOOD SPECIMEN Ordering Facility: [facility] Address: [address] [place] [address] Result Comment: If t he patient is , TSH reference range varies by gestational period: First Trimester (weeks 9-12): 0.180-2.990 mIU/L Second Trimester: 0.110-3.980 mIU/L Third Trimester: 0.480-4.710 mIU/L Seth Crews et al. A Practical Approach for the Verifications and Determination of Site- and Trimester-Specific Reference Intervals for Thyroid Function tests in . Thyroid, 2019:29:3:412-420. Zhang E, et al. 2017 Guidelines of the [place] Thyroid Association for the Diagnosis and Management of Thyroid Disease during and the . Thyroid, 2017:27:3:315-389. Performed By: #### 2 276-4, 9, 2283-12 #### [facility] CLIA [id number] [address] [place], [place] [id number] [place] VITAMIN B1 (THIAMINE), WHOLE BLOODon 09-05-2023 Thiamine (Bld) [Moles/Vol] 179.2 nmol/L Normal 84.3-213.3 [facility] Comment on above: Order Comment: Laury bradshaw Type: BLOOD SPECIMEN Ordering Facility: [facility] Address: [address] [place] [address] Result Comment: This assay measures the concentration of thiamine diphosphate (TDP), the primary active form of vitamin B1. Approximately 90 percent of vitamin B1 present in whole blood is TDP. Thiamine and thiamine monophosphate, which comprise the remaining 10 percent, are not measured. This test was developed and its performance characteristics determined by [facility] Pathology [facility] Laboratory Medicine [place] ([facility]). It has not been cleared or approved by the FDA. [facility] is regulated under CLIA as qualified to perform high-complexity testing. This test is used for clinical purposes. It should not be regarded as investigational or for research. Performed By: #### B 1WB #### [facility] CLIA [id number] [address] [place] [address] [place] Vit [facility] Cobalamin (Vitamin B12) [Mass/Vol] 612 pg/mL Normal 232-1245 [facility] Comment on above: Order Comment: Laury bradshaw Type: BLOOD SPECIMEN Ordering Facility: [facility] Address: [address] [place] [address] Performed By: #### 2 276-4, 2132-9, 2284-8 #### [facility] CLIA [id number] [address] [place] [address] [place] Glucose - FINGER STICKon Glucose [Mass/Vol] 5.4 mg/dL [facility] Other PAP ACOG PANEL 2: 30 to 65on 06-10-2022 . . Normal [facility] Comment on above: Result Comment: Perf ormed at: WB Performed By: #### 4 [id number] #### [facility] [address] [place] [address] Dr. Sachin Coates Age Gdln ACOG Testing 30-65 Normal [facility] Comment on above: Performed By: #### 4 [id number] #### [facility] [address] [place] [address] Dr. Sachin Coates DIAGNOSIS: Comment Normal [facility] Comment on above: Result Comment: NEGA TIVE FOR INTRAEPITHELIAL LESION OR MALIGNANCY. CELLULAR CHANGES ASSOCIATED WITH INFLAMMATION ARE PRESENT. THIS SPECIMEN WAS RESCREENED PART OF OUR LITIGATION CLAIM REPRESENTATIVE PROGRAM. Performed at: WB Performed By: #### 4 [id number] #### [facility] [address] [place] [address] Dr. Sachin Coates HPV Aptima Negative Normal Negative [facility] Comment on above: Result Comment: This nucleic acid amplification test detects fourteen high-risk HPV types (16,18,31,33,35,39,45,51,52,56,58,59,66,68) without differentiation. Performed at: =G Performed By: #### 4 [id number] #### [facility] [address] [place] [address] Dr. Sachin Coates HPV Genotype Reflex Comment Normal [facility] Comment on above: Result Comment: Crit eria not met, HPV Genotype not performed. Performed at: WB Performed By: #### 4 [id number] #### [facility] [address] [place] [address] Dr. Sachin Coates Methodology: Comment Normal [facility] Comment on above: Result Comment: This liquid based ThinPrep(R) pap test was screened with the use of an image guided system. Performed at: WB Performed By: #### 4 [id number] #### [facility] [address] [place] [address] Dr. Sachin Coates Note: Comment Normal [facility] Comment on above: Result Comment: The Pap smear is a screening test designed to aid in the detection of premalignant and malignant conditions of the uterine cervix. It is not a diagnostic procedure and should not be used as the sole means of detecting cervical cancer. Both false-positive and false-negative reports do occur. . Performed at: WB Performed By: #### 4 [id number] #### [facility] [address] [place] [address] Dr. Sachin Coates Performed by: Comment Normal [facility] Comment on above: Result Comment: Peyton Beverly, Electrophysiology Technologist (ASCP) Performed at: WB Performed By: #### 4 [id number] #### [facility] [address] [place], [place] [address] Dr. Sachin Coates QC reviewed by: Comment Normal [facility] Comment on above: Result Comment: Cielo Cochran, Supervisory Electrophysiology Technologist (ASCP) Performed at: WB Performed By: #### 4 [id number] #### [facility] [address] [place], [place] [address] Dr. Sachin Coates Specimen adequacy: Comment Normal [facility] Comment on above: Result Comment: Sati sfactory for evaluation. Endocervical and/or squamous metaplastic cells (endocervical component) are present. Performed at: WB Performed By: #### 4 [id number] #### [facility] [address] [place], [place] [address] Dr. Sachin Coates COVID-19 SOFIAOrdered By: Dario To on 12-02-2021 SARS-CoV+SARS-CoV-2 (COVID-19) Ag IA.rapid Ql (Resp) Negative Negative [facility] Comment on above: This is a duplicate Zuleyma SARS Antigen (PAMELLA) result to be used for statistical tracking purpose only. No Panel InformationOrdered By: Ck To on 12-02-2021 SARS Antigen (LFIA) [facility] Chart Updateon 08-08-2020 Chart Update Chart [...] Aug 08 2020 10:18AM EST (Author) Normal [facility] FABRIC WORKER - Procedure Visiton 0 07-10-2020 FABRIC WORKER - Procedure Visit Chief Complaint IUI Active [...] Touchworks ESTRADIOLon 07-08-2020 ESTRADIOL 186 pg/mL Normal [facility] Comment on above: Result Comment: Estr adiol measurement is performed using the Shruthi VideoStep Access Sensitive Estradiol Immunoassay. Estradiol testing is performed using a different test methodology at [facility] than other [facility]. Direct result comparison should only be made within the same method. REF VALUES EARLY FOLLICULAR 22-115 MID FOLLICULAR 25-115 OVULATORY PEAK 32-517 MID LUTEAL 37-246 POSTMENOPAUSE <15- 25 MALE <15- 32 Performed By: #### G [facility] #### [facility] [address] [place] [address] Estradiol, Serumon 1 E2 [Mass/Vol] 186 pg/mL MG-OBGYN-Ri an 310 IVF Work Phone: Comment on above: Estradiol measuremen t is performed using the Shruthi VideoStep Access Sensitive Estradiol Immunoassay. Estradiol testing is performed using a different test methodology at [facility] than other [facility]. Direct result comparison should only be made within the same method.REF VALUESEARLY FOLLICULAR 22-115MID FOLLICULAR 25-115OVULATORY PEAK 32-517MID LUTEAL 37-246POSTMENOPAUSE <15- 25MALE <15- 32 LUTEINIZING HORMONEon 2020 LUTEINIZING HORMONE 9.5 IU/L Normal [facility] Comment on above: Result Comment: Lute inizing Hormone [LH] is performed using the Shruthi [place] Access Immunoassay. LH testing is performed using a different test methodology at [facility] than other [facility]. Direct result comparison should only be made within the same method. REF VALUES FOLLICULAR PHASE 1.5-10.0 MID-CYCLE 13.0-72.0 LUTEAL PHASE 0.5-13.0 MENOPAUSE 15.0-65.0 PREPUBERTY 0- 3.0 CHILDREN 0- 6.0 ADULT MALE 1.0- 9.0 Performed By: #### G [facility] #### [facility] [address] [place] [address] Luteinizing Hormone, Serumon 07-08-2020 Lutropin Qn 9.5 {IU/L} HT-FEFQS-Nmhm an 310 IVF Work Phone: Comment on above: Luteinizing Hormone [LH] is performed using the Shruthi VideoStep Access Immunoassay. LH testing is performed using a different test methodology at [facility] than other [facility]. Direct result comparison should only be made within the same method.REF VALUESFOLLICULAR PHASE 1.5-10.0MID-CYCLE 13.0-72.0LUTEAL PHASE 0.5-13.0MENOPAUSE 15.0-65.0PREPUBERTY 0- 3.0CHILDREN 0- 6.0ADULT MALE 1.0- 9.0 TYPE + SCREENon 07-06-2020 ABO TYPE A Normal [facility] Comment on above: Performed By: #### T +S #### [facility] [address] [place] [address] RH TYPE Positive Normal [facility] Comment on above: Performed By: #### T +S #### [facility] [address] [place] [address] ESTRADIOLon 07-05-2020 ESTRADIOL 58 pg/mL Normal [facility] Comment on above: Result Comment: Estr adiol measurement is performed using the Shruthi VideoStep Access Sensitive Estradiol Immunoassay. Estradiol testing is performed using a different test methodology at [facility] than other [facility]. Direct result comparison should only be made within the same method. REF VALUES EARLY FOLLICULAR 22-115 MID FOLLICULAR 25-115 OVULATORY PEAK 32-517 MID LUTEAL 37-246 POSTMENOPAUSE <15- 25 MALE <15- 32 Performed By: #### [facility] #### [facility] [address] [place] [address] Estradiol, Serumon 1 E2 [Mass/Vol] 58 pg/mL MG-OBGYN-Ri sm an 310 IVF Work Phone: Comment on above: Estradiol measuremen t is performed using the Shruthi VideoStep Access Sensitive Estradiol Immunoassay. Estradiol testing is performed using a different test methodology at [facility] than other [facility]. Direct result comparison should only be made within the same method.REF VALUESEARLY FOLLICULAR 22-115MID FOLLICULAR 25-115OVULATORY PEAK 32-517MID LUTEAL 37-246POSTMENOPAUSE <15- 25MALE <15- 32 Hematologyon 07-05-2020 ABO group Nom (Bld) A MG-EQUAL OPPORTUNITY ASSISTANT-Rism an 310 IVF Work Phone: Blood group antibody screen Ql Negative MG-CPMRU-Vkyj an 310 IVF Work Phone: Rh immune globulin screen (Bld) [Interp] Positive MG-OBGYN-R ism an 310 IVF Work Phone: LUTEINIZING HORMONEon 2020 LUTEINIZING HORMONE 9.2 IU/L Normal [facility] Comment on above: Result Comment: Lute inizing Hormone [LH] is performed using the Shruthi [place] Access Immunoassay. LH testing is performed using a different test methodology at [facility] than other [facility]. Direct result comparison should only be made within the same method. REF VALUES FOLLICULAR PHASE 1.5-10.0 MID-CYCLE 13.0-72.0 LUTEAL PHASE 0.5-13.0 MENOPAUSE 15.0-65.0 PREPUBERTY 0- 3.0 CHILDREN 0- 6.0 ADULT MALE 1.0- 9.0 Performed By: #### L #### [facility] [address] [place] [address] Luteinizing Hormone, Serumon 07-05-2020 Lutropin Qn 9.2 {IU/L} XN-TGOOD-Zucg an 310 IVF Work Phone: Comment on above: Luteinizing Hormone [LH] is performed using the Shruthi VideoStep Access Immunoassay. LH testing is performed using a different test methodology at [facility] than other [facility]. Direct result comparison should only be made within the same method.REF VALUESFOLLICULAR PHASE 1.5-10.0MID-CYCLE 13.0-72.0LUTEAL PHASE 0.5-13.0MENOPAUSE 15.0-65.0PREPUBERTY 0- 3.0CHILDREN 0- 6.0ADULT MALE 1.0- 9.0 FABRIC WORKER - Office Visiton FABRIC WORKER - Office Visit Diagnoses/Problems Assessed Morbid obesity [...] MD [facility] [phone] [place] [phone] [place] 1 Amended By: Bayron Mccarty; Jun 19 [...] MD [facility] [phone] [place] [phone] [place] Appointment Duration:. 25 minutes; greater than half of the time was spent on counseling. 1 Amended By: Bayron Mccarty; Jun 19 2020 10:16 AM ESTChief Complaint follow up History of Present [id number]/19/2020 9:30AM JALEESA ARRIETA , 30 year is contacted for an (audio-visual, or audio only) Telehealth visit. Today's visit was provided through telemedicine conferencing: Using [employer] platform. Consent: The concept of telemedicine? has [...] is a telehealth appointment Results/Data HCG, Beta [id number] 11:58AMBayron Mccarty Test NameResultFlagReference HCG, Beta Quantitative<2 [...] HCG measurement is performed using the Shruthi [place] Access Immunoassay which detects intact HCG and free beta HCG subunit. This test is not indicated for use as a tumor marker. HCG testing is performed using a different test methodology at [facility] than other [facility]. Direct result comparison should only be made within the same method. REF VALUES NON FEMALE <5 MALES <5 Progesterone, [id number] 11:58Baryon Stroud Test NameResultFlagReference Progesterone, Serum10.5 ng/mL REF VALUES MALE <0.3- 1.2 FOLLICULAR PHASE <0.3- 1.4 LUTEAL PHASE 3.3-25.6 MID-LUTEAL PHASE 4.4-28.0 POSTMENOPAUSAL <0.3- 0.7 FEMALES: 1ST TRIMESTER 11.2- 90.0 2ND TRIMESTER 25.6- 89.4 3RD TRIMESTER 48.4-422.5 . Patients receiving DHEA-S supplements may show false elevation of progesterone for results near 1.0 ng/mL. Contact laboratory at [phone] if alternative testing is needed. CMV IgG and IgM [id number] 11:58AMBayron Mccarty Test NameResultFlagReference CMV IgG AntibodyREACTIVEASee Below Reference Range: NONREACTIVE CMV IGM [id number] 11:58AMBayron Mccarty Test NameResultFlagReference CMV IGM AB<30.00 [...] testing in two or more weeks. Xray [id number] 2020 12:00AMBayron Mccarty [Mar 28, 2020 9:43AM Bayron Mccarty] Reason: Unspecified for Xray Hysterosalpingogram Test NameResultFlagReference Xray Hysterosalpingogram Please click on the link to view the study images Anti Mullerian [id number] 12:03PMBayron Mccarty Test NameResultFlagReference Anti Mullerian Hormone6.36 ng/mL For assays employing antibodies, the possibility exists for interference by heterophile antibodies in the samples.1 1.Oswald Crews. Interferences in Immunoassays - still a threat. Clin. Chem. 2000; 46: 0123-1513. This test was developed and its performance characteristics determined by [facility]. It has not been cleared or approved by the Food and Drug Administration. Reference Range: Females 26 - 30y: 1.03 - 11.10 Median 4.20 AMH concentrations of >= 1.06 ng/mL is correlated with a better response to ovarian stimulation, produced more retrievable oocytes and higher odds of live according to Carey et al. Fertility and Sterility. 2010: 94:7200-1138. The current AMH test method correlates with [...] exclude an AMH-secreting ovarian tumor. Rubella IgG [id number] 12:03PMBayron Mccarty Test NameResultFlagReference Rubella IgG AntibodyPOSITIVE [...] TSH WITH REFLEX TO FREE T4 IF [id number] 12:03PMBayron Mccarty Test NameResultFlagReference Thyroid Stimulating Hormone, Serum2.17 mIU/LSee Below Reference Range: 0.44 - 3.98 TSH testing is performed using different testing methodology at [facility] than at other [facility]. Direct result comparisons should only be made within the same method. Varicella Zoster IgG Ibilgntx08Leb0559 12:03PMBayrno Mccarty Test NameResultFlagReference Varicella Zoster IgG AntibodyNegativeNEGATIVE [...] altered results in serological assays. Vitamin D 25-Rwvabsn19Bln3753 12:03PMBayron Mccarty Test NameResultFlagReference Vitamin D 25-Hydroxy, Level17 ng/mLA . DEFICIENCY: < 20 NG/ML INSUFFICIENCY: 20-29 NG/ML SUFFICIENCY: 30-100 NG/ML THIS ASSAY ACCURATELY QUANTIFIES THE SUM OF VITAMIN D3, 25-HYDROXY AND VIT D2,25-HYDROXY. { 17-Hydroxyprogesterone, Zjjsm69Xxy3792 12:03PMBayron Mccarty Test NameResultFlagReference 17-Hydroxyprogesterone, Serum33 ng/dL [...] Endocrinol Metab. 1991;73:674-686; J Clin Endocrinol Metab. 1989;69;6975-6840; J Clin Endocrinol Metab. 1994;78:226-270. Pediatr Res 1988;23:525-529. MedLinePlus (accessed 10/25/13). This test was developed and its analytical performance characteristics have been determined by [facility] [place]. It has not been cleared or approved by the U.S. Food and Drug Administration. This assay has been validated pursuant to the CLIA regulations and is used for clinical purposes. DHEA Sulfate, Vjxxn00Hgi3915 12:03PMBibianaBayron Test NameResultFlagReference DHEA Sulfate, Hnyla486 ug/dL65 - 395 MATURITY-BASED REFERENCE RANGES: PUBERTAL [...] laboratory for further information. Testosterone Free + Utgdw31Wcq4010 12:03PMBibiana Bayron Test NameResultFlagReference Testosterone, Total63 ng/dLH2-45 For additional information, please refer to http://education.BeatDeck/faq/ TotalTestosteroneLCMSMSF AQ165 (This link is being provided for informational/ educational purposes only.) This test was developed and its analytical performance characteristics have been determined by [facility] [place], [place]. It has not been cleared or approved by the U.S. Food and Drug Administration. This assay has been validated pursuant to the CLIA regulations and is used for clinical purposes. Testosterone, Free Serum8.8 pg/mLH0.1-6.4 This test was developed and its analytical performance characteristics have been determined by [facility] [place]. It has not been cleared or approved by the U.S. Food and Drug Administration. This assay has been validated pursuant to the CLIA regulations and is used for clinical purposes. Hemoglobin [id number] 12:03PMBibiana Bayron Test NameResultFlagReference Hemoglobin A1C, Level5.5 % Diagnosis of Diabetes-Adults Non-Diabetic: < or = 5.6% Increased risk for developing diabetes: 5.7-6.4% Diagnostic of diabetes: > or = 6.5% . Monitoring of Diabetes Age (y) Therapeutic Goal (%) Adults: >18 <7.0 Pediatrics: 13-18 <7.5 7-12 <8.0 0- 6 7.5-8.5 [place] [employer]. Diabetes Care 33(S1), May 2009. Estimated Average Yxphwoi251 MG/DL GC + Chlamydia By Amplified Xncgvekqu61Cab6380 12:03PMBayron Mccarty Test NameResultFlagReference N.GONORRHEA,AMPLIFIEDNEG ATIVENegative SOURCE: Urine Chlamydia Trach, AmplifiedNEGATIVENegativ e Hepatitis B Surface Mpikbuq35Ixn0831 12:03PMBayron Mcacrty Test NameResultFlagReference Hep.B Surface AgNONREACTIVESee Below Reference Range: NONREACTIVE Biotin interference may cause falsely decreased results. Patients taking a Biotin dose of up to 5 mg/day should refrain from taking Biotin for 24 hours before sample collection. Providers may contact their local laboratory for further information. Hepatitis C Antibody Ytvm24Xpb5496 12:03PMBayron Mccarty Test NameResultFlagReference Hepatitis C-AntibodyNONREACTIVESee Below Reference Range: NONREACTIVE Results from patients taking biotin supplements or receiving high-dose biotin therapy should be interpreted with caution due to possible interference with this test. Providers may contact their local laboratory for further information. HIV 1/2 ANTIGEN/ANTIBODY SCREEN WITH REFLEX TO [id number] 12:03PMBayron Mccarty Test NameResultFlagReference HIV 1/2 AG/AB SCREENNONREACTIVESee Below Reference Range: NONREACTIVE HIV Ag/Ab screen is performed using the Siemens Onavollica HIV Ag/Ab Combo assay which detects the presence of HIV p24 antigen as well as antibodies to HIV-1 (Group M and O) and HIV-2. SYPHILIS SCREENING WITH [id number] 12:03Bayron Silva Test NameResultFlagReference SYPHILIS TOTAL ANTIBODYNONREACTIVESee [...] ABon 04-20-2020 CMV IGM AB <30.00 Normal [place] Comment on above: Result Comment: REFE RENCE [...] weeks. Performed By: #### C MVM2 #### [facility] [address] [place] [address] CMV IGG AND IGM ABon 020 CMV IGG AB REACTIVE Abnormal NONREACTIVE [place] Comment on above: Performed By: #### C MV2 #### [facility] [address] [place] [address] PROGESTERONEon 04-16-2020 PROGESTERONE 10.5 ng/mL Normal [place] Comment on above: Result Comment: REF VALUES MALE <0.3- 1.2 FOLLICULAR PHASE <0.3- 1.4 LUTEAL PHASE 3.3-25.6 MID-LUTEAL PHASE 4.4-28.0 POSTMENOPAUSAL <0.3- 0.7 FEMALES: 1ST TRIMESTER 11.2- 90.0 2ND TRIMESTER 25.6- 89.4 3RD TRIMESTER 48.4-422.5 . Patients receiving DHEA-S supplements may show false elevation of progesterone for results near 1.0 ng/mL. Contact laboratory at [phone] if alternative testing is needed. Performed By: #### P BOBBY #### [facility] [address] [place] [address] HCG,BETA-QUANTITATIVEon HCG,BETA-QUANTITATIVE <2 Normal [place] Comment on above: Result Comment: Low- level [...] performed using a different test methodology at [facility] than other [facility]. Direct result comparison should only be made within the same method. REF VALUES NON FEMALE <5 MALES <5 Performed By: #### H QU #### [address] [id number] FABRIC WORKER - Office Visiton FABRIC WORKER - Office Visit Chief Complaint An interactive [...] test results. Roby JEWELL. History of Present Eelybjw6404/14/2020 9:30AM JALEESA ARRIETA , 30 year is contacted for an (audio-visual, or audio only) Telehealth visit. Today's visit was provided through telemedicine conferencing: Using [employer] platform. Consent: The concept of telemedicine? has [...] 25 MCG (1000 UT) Oral Tablet; Therapy: 15Qid7319 to Recorded Dispense: 0 Days ; #: Sufficient Tablet; Refill: 0; KEVIN = N; Record; Last Updated By: Breezy Jasso; 2020 1:15:24 PM Vitals Vital Signs Recorded: 83Ktj8698 09:08AM Height5 ft 6 in Rejrzg343 lb BMI Gsgtascrwq70.81 BSA Calculated2.34 VIO10Ozf5876 Gravida1 Para0 Pain Scale0 Physical Exam This is a telehealth appointment Results/Data Anti Mullerian Kdhgoal42Wlu8474 12:03PMBayron Mccarty Test NameResultFlagReference Anti Mullerian Hormone6.36 ng/mL For assays employing antibodies, the possibility exists for interference by heterophile antibodies in the samples.1 1.Oswald Crews. Interferences in Immunoassays - still a threat. Clin. Chem. 2000; 46: 1214-0882. This test was developed and its performance characteristics determined by [facility]. It has not been cleared or approved by the Food and Drug Administration. Reference Range: Females 26 - 30y: 1.03 - 11.10 Median 4.20 AMH concentrations of >= 1.06 ng/mL is correlated with a better response to ovarian stimulation, produced more retrievable oocytes and higher odds of live according to Gleicher et al. Fertility and Sterility. 2010: 94:5321-3850. The current AMH test method correlates with [...] exclude an AMH-secreting ovarian tumor. Anti Mullerian Tcxvgrp37Ety4822 12:03PMBayron Mccarty Test NameResultFlagReference Anti Mullerian Hormone6.36 ng/mL For assays employing antibodies, the possibility exists for interference by heterophile antibodies in the samples.1 1.Oswald Crews. Interferences in Immunoassays - still a threat. Clin. Chem. 2000; 46: 1159-1494. This test was developed and its performance characteristics determined by [facility]. It has not been cleared or approved by the Food and Drug Administration. Reference Range: Females 26 - 30y: 1.03 - 11.10 Median 4.20 AMH concentrations of >= 1.06 ng/mL is correlated with a better response to ovarian stimulation, produced more retrievable oocytes and higher odds of live according to Gleicher et al. Fertility and Sterility. 2010: 94:6227-1562. The current AMH test method correlates with [...] exclude an AMH-secreting ovarian tumor. Rubella IgG Rrutipgj64Vhi9222 12:03PMBibiana Bayron Test NameResultFlagReference Rubella IgG AntibodyPOSITIVE [...] TSH WITH REFLEX TO FREE T4 IF [id number] 12:03PMBayron Mccarty Test NameResultFlagReference Thyroid Stimulating Hormone, Serum2.17 mIU/LSee Below Reference Range: 0.44 - 3.98 TSH testing is performed using different testing methodology at [facility] than at other [facility]. Direct result comparisons should only be made within the same method. Varicella Zoster IgG Kwfqfleq37Xro1340 12:03PMBayron Mccarty Test NameResultFlagReference Varicella Zoster IgG [...] altered results in serological assays. Vitamin D 25-Lxufbkt95Jch0618 12:03PMBayron Mccarty Test NameResultFlagReference Vitamin D 25-Hydroxy, Level17 ng/mLA . DEFICIENCY: < 20 NG/ML INSUFFICIENCY: 20-29 NG/ML SUFFICIENCY: 30-100 NG/ML THIS ASSAY ACCURATELY QUANTIFIES THE SUM OF VITAMIN D3, 25-HYDROXY AND VIT D2,25-HYDROXY. { 17-Hydroxyprogesterone, Seatg99Rwq4513 12:03PMBayron Mccarty Test NameResultFlagReference 17-Hydroxyprogesterone, Serum33 ng/dL [...] Endocrinol Metab. 1991;73:674-686; J Clin Endocrinol Metab. 1989;69;3250-7268; J Clin Endocrinol Metab. 1994;78:226-270. Pediatr Res 1988;23:525-529. MedLinePlus (accessed 10/25/13). This test was developed and its analytical performance characteristics have been determined by [facility]. It has not been cleared or approved by the U.S. Food and Drug Administration. This assay has been validated pursuant to the CLIA regulations and is used for clinical purposes. DHEA Sulfate, Cdgny63Nig2004 12:03YuniorBayron polanco Test NameResultFlagReference DHEA Sulfate, Csmkw307 ug/dL65 - 395 MATURITY-BASED REFERENCE RANGES: PUBERTAL [...] laboratory for further information. Testosterone Free + Syias38Zyt3547 12:03PMBayron Mccarty Test NameResultFlagReference Testosterone, Total63 ng/dLH2-45 For additional information, please refer to http://education.BeatDeck/faq/ TotalTestosteroneLCMSMSF AQ165 (This link is being provided for informational/ educational purposes only.) This test was developed and its analytical performance characteristics have been determined by [facility] [place], [place]. It has not been cleared or approved by the U.S. Food and Drug Administration. This assay has been validated pursuant to the CLIA regulations and is used for clinical purposes. Testosterone, Free Serum8.8 pg/mLH0.1-6.4 This test was developed and its analytical performance characteristics have been determined by [facility] [place]. It has not been cleared or approved by the U.S. Food and Drug Administration. This assay has been validated pursuant to the CLIA regulations and is used for clinical purposes. Hemoglobin K2X13Vys1715 12:03PMBayron Mccarty Test NameResultFlagReference Hemoglobin A1C, Level5.5 % Diagnosis of Diabetes-Adults Non-Diabetic: < or = 5.6% Increased risk for developing diabetes: 5.7-6.4% Diagnostic of diabetes: > or = 6.5% . Monitoring of Diabetes Age (y) Therapeutic Goal (%) Adults: >18 <7.0 Pediatrics: 13-18 <7.5 7-12 <8.0 0- 6 7.5-8.5 [place] [employer]. Diabetes Care 33(S1), May 2009. Estimated Average Isljqdm170 MG/DL GC + Chlamydia By Amplified Jrieifvmg01Rbc4599 12:03PMBayron Mccarty Test NameResultFlagReference N.GONORRHEA,AMPLIFIEDNEG ATIVENegative SOURCE: Urine Chlamydia Trach, AmplifiedNEGATIVENegativ e Hepatitis B Surface Rwlyand19Piu7234 12:03PMBayron Mccarty Test NameResultFlagReference Hep.B Surface AgNONREACTIVESee Below Reference Range: NONREACTIVE Biotin interference may cause falsely decreased results. Patients taking a Biotin dose of up to 5 mg/day should refrain from taking Biotin for 24 hours before sample collection. Providers may contact their local laboratory for further information. Hepatitis C Antibody Xjzy96Kid0616 12:03PMBayron Mccarty Test NameResultFlagReference Hepatitis C-AntibodyNONREACTIVESee Below Reference Range: NONREACTIVE Results from patients taking biotin supplements or receiving high-dose biotin therapy should be interpreted with caution due to possible interference with this test. Providers may contact their local laboratory for further information. HIV 1/2 ANTIGEN/ANTIBODY SCREEN WITH REFLEX TO [id number] 12:03PMBayron Mccarty Test NameResultFlagReference HIV 1/2 AG/AB SCREENNONREACTIVESee Below Reference Range: NONREACTIVE HIV Ag/Ab screen is performed using the Siemens OnavollDineroMail HIV Ag/Ab Combo assay which detects the presence of HIV p24 antigen as well as antibodies to HIV-1 (Group M and O) and HIV-2. SYPHILIS SCREENING WITH XFLKOU73Nub7659 12:03PMBayron Mccarty Test NameResultFlagReference SYPHILIS TOTAL ANTIBODYNONREACTIVESee Below SOURCE: Reference Range: NONREACTIVE No significant level of Treponema pallidum antibody detected. Repeat testing in 2 to 4 weeks may be considered if early infection or incubating syphilis infection is suspected. Diagnoses/Problems Irregular menses (626.4) (N92.6) Morbid obesity (278.01) (E66.01) Orders HCG, Beta Quantitative; Status:Active; Requested for:67Fby5905; Perform:Lab Services - Lab To Draw (Blood Test); Due:13Jul2020;Ordered; For:Irregular menses; Ordered By:Bayron Mccarty; Progesterone, Serum; Status:Active; Requested for:35Hjp7441; Perform:Lab Services - Lab To Draw (Blood [...] Bayron Mccarty MD Reproductive Endocrinology and Infertility [facility] [phone] [place] [phone] [place] Appointment Duration:. 25 minutes; greater than half [...] MD [facility] [phone] [place] [phone] [place] 1 Amended By: Bayron Mccarty; Apr 14 2020 4:50 PM ESTSignatures Electronically signed by : Bayron Mccarty MD; Apr 14 2020 4:51PM EST (Author) Normal [facility] FABRIC WORKER - Procedure Visiton 1 05-28-2019 FABRIC WORKER - Procedure Visit Chief Complaint pt presents [...] 1 CAPSULE EVERY 12 HOURS DAILY; Therapy: 12Ypg0410 to (Evaluate:78Cls8855) Requested for: 19Xqr6507; Last Rx:[id number] Ordered Rx By: Bayron Mccarty; Dispense: 5 Days ; #:10 Capsule; Refill: 0;For: Fertility testing; KEVIN = N; Verified Transmission to [address] Msg to Pharmacy: start medication the night before her procedure; Last Updated By: ElhamIsowalk; 01/24/2020 12:08:27 PM Vitamin D 25 MCG (1000 UT) Oral Tablet; Therapy: 41Mqj0493 to Recorded Dispense: 0 Days ; #: [...] Mar 28 2020 4:10PM EST (Author) Normal [facility] FABRIC WORKER - Office Visiton 11-0 FABRIC WORKER - Office Visit Chief Complaint The patient [...] is considering single parent procreation. Her usual Retail Sales Representative with whom she would plan to follow with for care in a future is Dr. Ng in [place]. Active Problems Female infertility (628.9) (N97.9) Fertility [...] 1 CAPSULE EVERY 12 HOURS DAILY; Therapy: 90Wgg8647 to (Evaluate:51Hyb0428) Requested for: 08Afb6818; Last Rx:[id number] Ordered Rx By: Bayron Mccarty; Dispense: 5 Days ; #:10 Capsule; Refill: 0; For: Fertility testing; KEVIN = N; Verified Transmission to [place] [address]; Msg to Pharmacy: start medication the night before her procedure; Last Updated By: Cindi Lizarraga; 01/24/2020 12:08:27 PM Vitamin D 25 MCG (1000 UT) Oral Tablet; Therapy: 54Gbx8736 to Recorded Dispense: 0 Days ; #: Sufficient Tablet; Refill: 0; KEVIN = N; Record; Last Updated By: Breezy Jasso; 2020 1:15:24 PM Vitals Vital Signs Recorded: 13Mar2020 01:08PM Heart Rate96 Njotwvbc738 Ppsyatlar71 Height5 ft 6 in Qboyup334 lb BMI Vatdkeksmr19.91 BSA Calculated2.39 Tobacco Useb) No Fall Screeninga) No falls within the last year CWL93Zct2493 Gravida1 Para0 Pain Scale0 Diagnoses/Problems Morbid obesity [...] consultation of which greater than 50% was tzfz-me-nwkv counseling. Weight loss prior to conception is [...] MD; Jun 12 2020 4:50PM EST Normal [facility] ANTI MULLERIAN HORMONEon ANTI MULLERIAN HORMONE 6.36 ng/mL Normal [facility] Comment on above: Result Comment: For assays employing antibodies, the possibility exists for interference by heterophile antibodies in the samples.1 1.Oswald Brunner Interferences in Immunoassays - still a threat. Clin. Chem. 2000; 46: 2939-1784. This test was developed and its performance characteristics determined by [facility]. It has not been cleared or approved by the Food and Drug Administration. Reference Range: Females 26 - 30y: 1.03 - 11.10 Median 4.20 AMH concentrations of >= 1.06 ng/mL is correlated with a better response to ovarian stimulation, produced more retrievable oocytes and higher odds of live according to Michaeler et al. Fertility and Sterility. 2010: 94:0108-6708. The current AMH test method correlates with [...] ovarian tumor. Performed By: #### A #### [facility] [address] [place] [id number] 17-HYDROXYPROGESTERONEon 17-HYDROXYPROGESTERON E 33 ng/dL Normal [facility] Comment on above: Result Comment: Unable to [...] Endocrinol Metab. 1991;73:674-686; J Clin Endocrinol Metab. 1989;69;4529-5857; J Clin Endocrinol Metab. 1994;78:226-270. Pediatr Res 1988;23:525-529. MedLinePlus (accessed 10/25/13). This test was developed and its analytical performance characteristics have been determined by [facility], [place]. It has not been cleared or approved by the U.S. Food and Drug Administration. This assay has been validated pursuant to the CLIA regulations and is used for clinical purposes. Performed By: #### 1 7OHP #### [facility] [address] [place], [place] TESTOST,FREE AND TOTALon TESTOSTERONE TOT.LC/MS/MS 63 ng/dL High 2-45 [facility] Comment on above: Result Comment: For additional information, please refer to http://education.[employer]/faq/ SfimdTcxngctnfjmwODWPASFPA366 (This link is being provided for informational/ educational purposes only.) This test was developed and its analytical performance characteristics have been determined by [facility] [place]. It has not been cleared or approved by the U.S. Food and Drug Administration. This assay has been validated pursuant to the CLIA regulations and is used for clinical purposes. Performed By: #### G [facility] #### [facility] [address] [place] [address] TESTOSTERONE,FREE 8.8 pg/mL High 0.1-6.4 [facility] Comment on above: Result Comment: This test was developed and its analytical performance characteristics have been determined by [facility] [place]. It has not been cleared or approved by the U.S. Food and Drug Administration. This assay has been validated pursuant to the CLIA regulations and is used for clinical purposes. Performed By: #### G [facility] #### [facility] [address] [place] [address] DHEA SULFATEon 01-25-2020 DHEA SULFATE 214 ug/dL Normal 65 - 395 [facility] Comment on above: Result Comment: MATU RITY-BASED [...] for further information. Performed By: #### G [facility] #### [facility] [address] [place] [address] GC + CHLAMYDIA BY AMPLIFIED DETECTIONon 01-25-2020 CHLAMYDIA TRACH.,AMPLIFIED Negative Normal Negative [facility] Comment on above: Performed By: #### [facility] #### [facility] [address] [place] [address] N.GONORRHEA,AMPLIFIED Negative Normal Negative [facility] Comment on above: Performed By: #### G CCHA #### [facility] [address] [place] [address] HEPATITIS B SURFACE AGon HEP.B SURFACE AG NONREACTIVE Normal NONREACTIVE [facility] Comment on above: Result Comment: Biot in interference may cause falsely decreased results. Patients taking a Biotin dose of up to 5 mg/day should refrain from taking Biotin for 24 hours before sample collection. Providers may contact their local laboratory for further information. Performed By: #### G CCHA #### [facility] [address] [place] [address] HEPATITIS C ABon 01-25-2020 HEPATITIS C AB NONREACTIVE Normal NONREACTIVE [facility] Comment on above: Result Comment: Resu lts from patients taking biotin supplements or receiving high-dose biotin therapy should be interpreted with caution due to possible interference with this test. Providers may contact their local laboratory for further information. Performed By: #### H CVAB #### [facility] [address] [place] [address] HIV ANTIGEN/ANTIBODY SCREENo n 01-25-2020 HIV AG/AB SCREEN NONREACTIVE Normal NONREACTIVE [facility] Comment on above: Result Comment: HIV Ag/Ab screen is performed using the [employer] HIV Ag/Ab Combo assay which detects the presence of HIV p24 antigen as well as antibodies to HIV-1 (Group M and O) and HIV-2. Performed By: #### G CCHA #### [facility] [address] [place] [address] RUBELLA IGG ABon 01-25-2020 RUBELLA IGG AB Positive Normal [facility] Comment on above: Result Comment: INTE [...] assays. Performed By: #### R UBIG #### [facility] [address] [place] [address] SYPHILIS SCREENING WITH REFL EXon 01-25-2020 SYPHILIS TOTAL AB NONREACTIVE Normal NONREACTIVE [facility] Comment on above: Result Comment: No s ignificant level of Treponema pallidum antibody detected. Repeat testing in 2 to 4 weeks may be considered if early infection or incubating syphilis infection is suspected. Performed By: #### S YPHR #### [facility] [address] [place] [address] TSH WITH REFLEX TO FREE T4 I F ABNORMALon 01-25-2020 TSH Qn 2.17 m[IU]/L Normal 0.44 - 3.98 [facility] Comment on above: Result Comment: TSH testing is performed using different testing methodology at [facility] than at other [facility]. Direct result comparisons should only be made within the same method. Performed By: #### G CCHA #### [facility] [address] [place] [address] VARICELLA ZOSTER IGG ABon VARICELLA ZOSTER IGG AB Negative Normal NEGATIVE [facility] Comment on above: Result Comment: INTE RPRETATIVE [...] in serological assays. Performed By: #### V [facility] #### [facility] [address] [place] [address] VITAMIN D, 25-HYDROXYon 01-10 VITAMIN D, 25-HYDROXY 17 ng/mL Abnormal [facility] Comment on above: Result Comment: . DEFICIENCY: < 20 NG/ML INSUFFICIENCY: 20-29 NG/ML SUFFICIENCY: 30-100 NG/ML THIS ASSAY ACCURATELY QUANTIFIES THE SUM OF VITAMIN D3, 25-HYDROXY AND VIT D2,25-HYDROXY. { Performed By: #### G [facility] #### [facility] [address] [place] [address] GC + CHLAMYDIA BY AMPLIFIED DETECTIONon 01-24-2020 Lab Specimen Source Urine Normal [facility] Comment on above: Performed By: #### G [facility] #### [facility] [address] [place] [address] HEMOGLOBIN A1Con 01-24-2020 HbA1c (Bld) [Mass fraction] 5.5 % Normal [facility] Comment on above: Result Comment: Diag nosis of Diabetes-Adults Non-Diabetic: < or = 5.6% Increased risk for developing diabetes: 5.7-6.4% Diagnostic of diabetes: > or = 6.5% . Monitoring of Diabetes Age (y) Therapeutic Goal (%) Adults: >18 <7.0 Pediatrics: 13-18 <7.5 7-12 <8.0 0- 6 7.5-8.5 [place] [employer]. Diabetes Care 33(S1), May 2009. Performed By: #### H BA1E #### [facility] [address] [place] [address] HbA1c (Bld) [Mass fraction] 111 MG/DL Normal [facility] Comment on above: Performed By: #### H BA1E #### [facility] [address] [place] [address] FABRIC WORKER - Office Visiton 01-10 FABRIC WORKER - Office Visit Chief Complaint 29 year [...] was treated with laparoscopic left salpingectomy in [facility]. 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: STDs: Yes, remote history of gonorrhea [...] PM Vitals Vital Signs Recorded: 24Jan2020 11:13AM Kjryuvvgonp40.7 F Heart Gqra191 Wtsofkhd937 Flgqavjeu43 Height5 ft 6 in Gpyber057 lb BMI Onarkdidpw71.13 BSA Calculated2.35 Tobacco Useb) No Fall Screeninga) No falls within the last year [id number] Gravida1 Para0 Pain Scale0 Diagnoses/Problems Female infertility (628.9) (N97.9) Fertility testing (V26.21) (Z31.41) Morbid obesity (278.01) (E66.01) Irregular menses (626.4) (N92.6) Screening for STD (sexually transmitted disease) (V74.5) (Z11.3) *Orders Anti Mullerian Hormone; Status:Active; Requested for:27Ftz3547; Perform:Lab Services - Lab To Draw (Non-Blood Test); Due:23Hhp1279;Ordered; For:Female infertility, Fertility testing, Irregular menses, Morbid [...] Status: Hold For - Scheduling Requested for: 79Cws2189 Ordered; For: Morbid obesity; Ordered By: Bayron Mccarty Performed: Due: 11Lou6571 17-Hydroxyprogesterone, Serum; Status:Active; Requested for:31Rok3713; Perform:Lab Services - Lab To Draw (Blood Test); Due:71Ipo1427;Ordered; For:Screening for STD (sexually transmitted disease); Ordered By:Bayron Mccarty; DHEA Sulfate, Serum; Status:Active; Requested for:91Gfq7614; Perform:Lab Services - Lab To Draw (Blood Test); Due:38Osc4588;Ordered; For:Screening for STD (sexually transmitted disease); Ordered By:Bayron Mccarty; Hemoglobin A1C; Status:Active; Requested for:63Syd3345; Perform:Lab Services - Lab To Draw (Blood Test); Due:08Akv6586;Ordered; For:Screening for STD (sexually transmitted disease); Ordered By:Bayron Mccarty; Rubella IgG Antibody; Status:Active; Requested for:68Dzs4043; Perform:Lab Services - Lab To Draw (Blood Test); Due:79Cvu3860;Ordered; For:Screening for STD (sexually transmitted disease); Ordered By:Bayron Mccarty; Testosterone Free + Total; Status:Active; Requested for:37Zbo9263; Perform:Lab Services - Lab To Draw (Blood Test); Due:65Ysz7515;Ordered; For:Screening for STD (sexually transmitted disease); Ordered By:Bayron Mccarty; TSH WITH REFLEX TO FREE T4 IF ABNORMAL; Status:Active; Requested for:20Rjq0366; Perform:Lab Services - Lab To Draw (Blood Test); Due:64Rrn7993;Ordered; For:Screening for STD (sexually transmitted disease); Ordered By:Bayron Mccarty; Ultrasound Pelvis Transvaginal; Status:Hold For - Scheduling; Requested for:47Hiq4127; Perform:[facility]; Order Comments:will call with menses to schedule; Due:04Cib1525;Ordered; For:Screening for STD (sexually transmitted disease); Ordered By:Bayron Mccarty; Radiologist to Determine Optimal Study : Y What are the patient's signs and symptoms? : fert testing Varicella Zoster IgG Antibody; Status:Active; Requested for:90Txl5418; Perform:Lab Services - Lab To Draw (Blood Test); Due:97Aux8767;Ordered; For:Screening for STD (sexually transmitted disease); Ordered By:Bayron Mccarty; Vitamin D 25-Hydroxy; Status:Active; Requested for:57Kwc1896; Perform:Lab Services - Lab To Draw (Blood Test); Due:78Nvh7774;Ordered; For:Screening for STD (sexually transmitted disease); Ordered By:Bayron Mccarty; Xray Hysterosalpingogram; Status:Hold For - Scheduling; Requested for:45Jqy7587; Perform:[facility] Imaging; Order Comments:will call with menses to schedule. schedule between CD5-12. start doxycycline night prior to procedure; Due:57Mug9563;Ordered; For:Screening for STD (sexually transmitted disease); Ordered [...] sent to her home pharmacy ([facility] in [place]) [ ] Day 3 FSH, LH, E2 [x] AMH [x] TSH [x] Prolactin [x] Testosterone, DHEAS [x] HgA1C [x] STD screening [x ] Preconceptual screening including Rubella,Varicella, Blood type [ ] Genetic Screen with [employer] - will consider [ ] Take vitamins [x] Return to see LAST INSERTER after workup complete to discuss management plan [...] REFL EXon 01-24-2020 Lab Specimen Source Normal [facility] Comment on above: Performed By: #### S [facility] #### [facility] [address] [place] [id number] Performed By: #### V ARZG #### [facility] [address] [place] [address] Performed By: #### R UBIG #### [facility] [address] [place] [address] Vital Signs Date Time Vital Sign Value Performing Clinician Facility 05-17-2024 15:36-0500 Body mass index (BMI) [Ratio] 49.41 kg/m2 Tacho Shon DO Work Phone: [facility] 05-17-2024 15:36-0500 Body weight 138.85 kg Tacho Shon DO Work Phone: [facility] 05-17-2024 15:36-0500 Diastolic blood pressure 80 mm[Hg] Tacho Shon DO Work Phone: [facility] 05-17-2024 15:36-0500 Systolic blood pressure 118 mm[Hg] Tacho Shon DO Work Phone: [facility] 05-03-2024 15:11-0500 Body mass index (BMI) [Ratio] 49.09 kg/m2 Mena Ann PA Work Phone: [facility] 05-03-2024 15:11-0500 Body weight 137.95 kg Mena Ann PA Work Phone: [facility] 05-03-2024 15:11-0500 Diastolic blood pressure 70 mm[Hg] Mena Ann PA Work Phone: [facility] 05-03-2024 15:11-0500 Systolic blood pressure 120 mm[Hg] Mena Ann PA Work Phone: [facility] 04-22-2024 09:51-0500 Body mass index (BMI) [Ratio] 49.45 kg/m2 Tacho Shon DO Work Phone: [facility] 04-22-2024 09:51-0500 Body weight 138.98 kg Tacho Shon DO Work Phone: [facility] 04-22-2024 09:51-0500 Diastolic blood pressure 80 mm[Hg] Tacho Shon DO Work Phone: [facility] 04-22-2024 09:51-0500 Systolic blood pressure 130 mm[Hg] Tacho Shon DO Work Phone: [facility] 04-06-2024 14:10-0500 Body mass index (BMI) [Ratio] 48.58 kg/m2 Mena Marissa PA Work Phone: [facility] 04-06-2024 14:10-0500 Body weight 136.53 kg Mena Saffell PA Work Phone: [facility] 04-06-2024 14:10-0500 Diastolic blood pressure 80 mm[Hg] Mena Saffell PA Work Phone: [facility] 04-06-2024 14:10-0500 Systolic blood pressure 128 mm[Hg] Mena Marissa PA Work Phone: [facility] 03-22-2024 14:14-0500 Body mass index (BMI) [Ratio] 48.92 kg/m2 Tacho Shon DO Work Phone: [facility] 03-22-2024 14:14-0500 Body weight 137.49 kg Tacho Shon DO Work Phone: [facility] 03-22-2024 14:14-0500 Diastolic blood pressure 84 mm[Hg] Tacho Shon DO Work Phone: [facility] 03-22-2024 14:14-0500 Systolic blood pressure 126 mm[Hg] Tacho Shon DO Work Phone: [facility] 03-05-2024 23:11-0400 Diastolic blood pressure 78 mm[Hg] [facility] Work Phone: [facility] 03-05-2024 23:11-0400 Heart rate 90 /min [facility] Work Phone: [facility] 03-05-2024 23:11-0400 Respiratory rate 18 /min [facility] Work Phone: [facility] 03-05-2024 23:11-0400 SaO2% (BldA) [Mass fraction] 96 % [facility] Work Phone: [facility] 03-05-2024 23:11-0400 Systolic blood pressure 136 mm[Hg] [facility] Work Phone: [facility] 03-05-2024 19:59-0400 Body temperature 98.1 [degF] [facility] Work Phone: [facility] 03-05-2024 19:58-0400 Body height 167.64 cm [facility] Work Phone: [facility] 03-05-2024 19:58-0400 Body weight 136.55 kg [facility] Work Phone: [facility] 02-26-2024 19:50-0400 Body height 167.64 cm [facility] Work Phone: [facility] 02-26-2024 19:50-0400 Body temperature 97.8 [degF] [facility] Work Phone: [facility] 02-26-2024 19:50-0400 Body weight 136.98 kg [facility] Work Phone: [facility] 02-26-2024 19:50-0400 Diastolic blood pressure 91 mm[Hg] [facility] Work Phone: [facility] 02-26-2024 19:50-0400 Heart rate 103 /min [facility] Work Phone: [facility] 02-26-2024 19:50-0400 Respiratory rate 16 /min [facility] Work Phone: [facility] 02-26-2024 19:50-0400 SaO2% (BldA) [Mass fraction] 96 % [facility] Work Phone: [facility] 02-26-2024 19:50-0400 Systolic blood pressure 144 mm[Hg] [facility] Work Phone: [facility] 02-23-2024 14:01-0400 Body mass index (BMI) [Ratio] 48.76 kg/m2 Mena Ann PA Work Phone: [facility] 02-23-2024 14:01-0400 Body weight 137.04 kg Mena Ann PA Work Phone: [facility] 02-23-2024 14:01-0400 Diastolic blood pressure 82 mm[Hg] Mena Ann PA Work Phone: [facility] 02-23-2024 14:01-0400 Systolic blood pressure 128 mm[Hg] Mena Ann PA Work Phone: [facility] 01-20-2024 13:58-0400 Body mass index (BMI) [Ratio] 48.1 kg/m2 Tacho Shon DO Work Phone: [facility] 01-20-2024 13:58-0400 Body weight 135.17 kg Tacho Shon DO Work Phone: [facility] 01-20-2024 13:58-0400 Diastolic blood pressure 74 mm[Hg] Tacho Shon DO Work Phone: [facility] 01-20-2024 13:58-0400 Systolic blood pressure 122 mm[Hg] Tacho Shon DO Work Phone: [facility] 10-06-2023 17:42-0400 Body height 167.64 cm [facility] Work Phone: [facility] 10-06-2023 17:42-0400 Body temperature 98.3 [degF] [facility] Work Phone: [facility] 10-06-2023 17:42-0400 Body weight 134 kg [facility] Work Phone: [facility] 10-06-2023 17:42-0400 Diastolic blood pressure 94 mm[Hg] [facility] Work Phone: [facility] 10-06-2023 17:42-0400 Heart rate 98 /min [facility] Work Phone: [facility] 10-06-2023 17:42-0400 Respiratory rate 18 /min [facility] Work Phone: [facility] 10-06-2023 17:42-0400 SaO2% (BldA) [Mass fraction] 100 % [facility] Work Phone: [facility] 10-06-2023 17:42-0400 Systolic blood pressure 142 mm[Hg] [facility] Work Phone: [facility] 09-17-2023 14:22-0400 Body height 167.6 cm Anna Ortiz [facility] 09-17-2023 14:22-0400 Body mass index (BMI) [Ratio] 47.61 kg/m2 Anna Ortiz [facility] 09-17-2023 14:22-0400 Body weight 133.81 kg Anna Ortiz [facility] 08-20-2023 13:05-0400 Body height 167.6 cm Tonya Senior APRN.BOOKING CLERK Work Phone: [facility] 08-20-2023 13:05-0400 Body weight 133.81 kg Tonya Senior APRN.BOOKING CLERK Work Phone: [facility] 08-07-2023 15:23-0400 Body height 168.91 cm [facility] Work Phone: [facility] 08-07-2023 15:23-0400 Body mass index (BMI) [Ratio] 46.9 kg/m2 [facility] Work Phone: [facility] 08-07-2023 15:23-0400 Body weight 133.89 kg Services [employer] Work Phone: [facility] 08-07-2023 15:23-0400 Diastolic blood pressure 83 mm[Hg] Services [employer] Work Phone: [facility] 08-07-2023 15:23-0400 Heart rate 101 /min Services [employer] Work Phone: [facility] 08-07-2023 15:23-0400 Respiratory rate 18 /min Services [employer] Phone: [facility] 08-07-2023 15:23-0400 SaO2% (BldA) [Mass fraction] 98 % Services [facility] [employer] Phone: [facility] 08-07-2023 15:23-0400 Systolic blood pressure 120 mm[Hg] Services [employer] Phone: [facility] 06-13-2023 11:00-0500 Body height 168.28 cm [employer] Other [facility] 06-13-2023 11:00-0500 Body mass index (BMI) [Ratio] 48.53 kg/m2 [employer] Other [facility] Other 06-13-2023 11:00-0500 Body weight 137.44 kg [employer] Other [facility] Other 06-13-2023 11:00-0500 Body weight 137.43 kg Services [facility] [employer] Phone: [facility] 06-13-2023 11:00-0500 Diastolic blood pressure 82 mm[Hg] [employer] Other [facility] 06-13-2023 11:00-0500 Respiratory rate 18 /min [employer] Other [facility] Other 06-13-2023 11:00-0500 SaO2% (BldA) [Mass fraction] 97 % [employer] Other [facility] Other 06-13-2023 11:00-0500 Systolic blood pressure 120 mm[Hg] [employer] Other [facility] 01-08-2023 10:45-0400 Body height 168.28 cm [employer] Other [facility] Other 01-08-2023 10:45-0400 Body mass index (BMI) [Ratio] 52.89 kg/m2 [facility] [employer] Other [facility] Other 01-08-2023 10:45-0400 Body weight 149.78 kg Nicholas [employer] Other [facility] Other 01-08-2023 10:45-0400 Diastolic blood pressure 81 mm[Hg] [employer] Other [facility] Other 01-08-2023 10:45-0400 Respiratory rate 18 /min [employer] Other [facility] Other 01-08-2023 10:45-0400 SaO2% (BldA) [Mass fraction] 97 % [facility] [employer] Other [facility] Other 01-08-2023 10:45-0400 Systolic blood pressure 122 mm[Hg] Nicholas [employer] Other [facility] Other 06-18-2022 16:57-0500 Body height 167.64 cm Services [employer] Work Phone: [facility] 06-18-2022 16:57-0500 Body weight 157 kg Services [employer] Work Phone: [facility] 06-18-2022 16:56-0500 Body temperature 98.3 [degF] Services [employer] Work Phone: [facility] 06-18-2022 16:56-0500 Diastolic blood pressure 67 mm[Hg] Services [employer] Work Phone: [facility] 06-18-2022 16:56-0500 Heart rate 95 /min [facility] Work Phone: [facility] 06-18-2022 16:56-0500 Respiratory rate 20 /min [facility] Work Phone: [facility] 06-18-2022 16:56-0500 SaO2% (BldA) [Mass fraction] 97 % [facility] Work Phone: [facility] 06-18-2022 16:56-0500 Systolic blood pressure 158 mm[Hg] [facility] Work Phone: [facility] 12-02-2021 20:26-0400 Body height 167.64 cm [facility] Work Phone: [facility] 12-02-2021 20:26-0400 Body temperature 98.2 [degF] [facility] Work Phone: [facility] 12-02-2021 20:26-0400 Body weight 144.24 kg [facility] Work Phone: [facility] 12-02-2021 20:26-0400 Diastolic blood pressure 89 mm[Hg] [facility] Work Phone: [facility] 12-02-2021 20:26-0400 Heart rate 104 /min [facility] Work Phone: [facility] 12-02-2021 20:26-0400 Respiratory rate 20 /min [facility] Work Phone: [facility] 12-02-2021 20:26-0400 SaO2% (BldA) [Mass fraction] 96 % [facility] Work Phone: [facility] 12-02-2021 20:26-0400 Systolic blood pressure 156 mm[Hg] Services [facility] Work Phone: [facility] 06-19-2020 11:10-0500 BMI (Body Mass Index) 46.65 kg/m2 Bayron Swanson 310 [facility] Work Phone: 06-19-2020 11:10-0500 Body weight 131.09 kg Bayron Mccarty PU-DDIPD-Tvwafw 310 IV[facility] Work Phone: 06-19-2020 11:10-0500 BSA (Body Surface Area) 2.34 m2 Bayron Mccarty DZ-ZIERS-Yfbxld 310 IV[facility] Work Phone: 06-19-2020 11:10-0500 Height 167.64 cm Bayron Mccarty OP-HGSFJ-Xlnysm 310 IVF Work Phone: 06-19-2020 11:10-0500 1 1 Bayron Mccarty AP-AAQGA-Wpxbkl 310 IVF Work Phone: Comment on above: 06-19-2020 11:10-0500 0 1 Bayron Mccarty TW-FJEMG-Qgvwcc 310 IVF Work Phone: Comment on above: Para Pain Scale Encounters Encounter Date Encounter Type Care Provider Facility Start: 05-17-2024 End: 05-17-2024 ambulatory [facility] Work Phone: [facility] Work Phone: Start: 05-17-2024 End: 05-17-2024 Departed Referred Services [facility] Work Phone: [facility] Start: 05-17-2024 End: 05-17-2024 Office outpatient visit 15 minutes Tacho Shon DO Work Phone: [facility] Comment on above: 37 weeks gestation o f ; Third trimester Start: 05-17-2024 End: 05-17-2024 Bamboo flowsheet Tacho Shon DO Work Phone: [facility] Start: 05-17-2024 End: 05-17-2024 Bamboo flowsheet Tacho Shon DO Work Phone: [facility] Start: 05-03-2024 End: 05-03-2024 Office outpatient visit [...] 04-27-2024 End: 04-27-2024 ambulatory TACHO R SHON [facility] Start: 04-22-2024 End: 04-22-2024 Bamboo flowsheet [...] Start: 03-30-2024 End: 03-30-2024 ambulatory TACHO R [facility] Start: 03-22-2024 End: 03-22-2024 Bamboo flowsheet [...] End: 03-05-2024 Emergency department patient visit Services [facility] Work Phone: [facility]-Emergency [facility] Work Phone: Start: 03-01-2024 End: 03-01-2024 Orders Only Veda Hayes RN M[facility]- Medic in[facility] at [facility] Comment on above: Encounter for follow -up ultrasound of anatomy (Primary Dx); History of pre-eclampsia in prior , currently ; History of delivery, currently ; Obesity affecting in second trimester, unspecified obesity type Start: 02-26-2024 End: 02-26-2024 Emergency department patient visit Services [facility] Work Phone: [facility] Work Phone: Start: 02-23-2024 End: [...] Start: 02-17-2024 End: 02-17-2024 ambulatory TACHO R [facility] Start: 01-26-2024 End: 01-26-2024 Clinisync Result [...] Start: 01-19-2024 End: 01-19-2024 ambulatory TACHO R [facility] Start: 12-23-2023 End: 12-23-2023 ambulatory MENA ANN Not Available Start: 11-25-2023 End: 11-25-2023 ambulatory TACHO SHON Not Available Start: 10-30-2023 End: 10-30-2023 ambulatory TACHO SHON Not Available Start: 10-09-2023 End: 10-09-2023 ambulatory LATONIA GREENE Facility:[facility] Start: 10-06-2023 End: 10-06-2023 Emergency department patient visit Services [facility] Work Phone: [facility] Work Phone: Start: 09-17-2023 End: 09-17-2023 ambulatory ANNA PEREZ Facility:[facility] Start: 09-17-2023 End: 09-17-2023 Nutrition therapy Anna [place] [facility] Comment on above: Obesity, Class III, BMI 40-49.9 (morbid obesity) (HCC) (Primary Dx); Dietary counseling Start: 09-17-2023 End: 09-17-2023 Telemedicine consultation with patient Anna Ortiz [facility] Start: 09-15-2023 Admission to [facility] [place] Tonya Senior LINUX ADMIN ENGINEER.BOOKING CLERK Work Phone: General Surgery Comment on above: Results Start: 09-15-2023 E-mail encounter fro m caregiver Tonya Senior LINUX ADMIN ENGINEER.BOOKING CLERK Work Phone: General Surgery Start: 09-11-2023 Telephone encounter Tonya Senior APRN.BOOKING CLERK Work Phone: General Surgery Comment on above: Results Start: 09-08-2023 End: 09-08-2023 ambulatory TONYA SENIOR Facility:[facility] Start: 09-05-2023 End: 09-05-2023 ambulatory TONYA SENIOR Facility:[facility] Start: 09-01-2023 End: 09-02-2023 ambulatory LATONIA GREENE Facility:[facility] Start: 09-01-2023 End: 09-01-2023 Admission to same day surgery center Latonia Greene PhD Work Phone: General Surgery BMI PSYL Comment on above: NO SHOW (Primary Dx) Start: 09-01-2023 End: 09-01-2023 Telemedicine consultation with patient Latonia Lazaro FuentesJerel PhD Work Phone: General Surgery BMI PSYL Start: 08-20-2023 Admission to [facility] Tonyaerum Senior APRN.BOOKING CLERK Work Phone: General Surgery Comment on above: Welcome to Bariatric Surgery Start: 08-20-2023 E-mail encounter dena m caregiver Tonya Senior APRN.BOOKING CLERK Work Phone: [place] [id number] Start: 08-20-2023 End: 08-20-2023 ambulatory Tonya Senior APRN.BOOKING CLERK Work Phone: General Surgery Comment on above: Body mass index (BMI ) of 50-59.9 in adult (HCC) (Primary Dx); Angel's thyroiditis; High blood cholesterol Start: 08-20-2023 End: 08-20-2023 Telemedicine consultation with patient Tonya K Parrish IBARRA.BOOKING CLERK Work Phone: [facility] Start: 08-07-2023 End: 08-07-2023 ambulatory Services [facility] Work Phone: [facility] Work Phone: Start: 08-07-2023 End: 08-07-2023 Patient encounter procedure Services Family [facility] Work Phone: [facility] Work Phone: Start: 06-13-2023 Follow-up encounter Nicholas Osuna [facility] Start: 06-13-2023 Registered Recurring Services [facility] Work Phone: [facility] Work Phone: Start: 06-13-2023 End: 06-13-2023 ambulatory Nicholas Michaels [facility] Other Start: 06-13-2023 End: 06-13-2023 Patient encounter procedure Services [facility] Work Phone: [facility]- Start: 01-08-2023 End: 01-08-2023 ambulatory Nicholas Michaels Other [facility] Other Start: 01-08-2023 Nutrition therapy Nicholas Michaels [facility] Start: 06-18-2022 End: 06-18-2022 Emergency department patient visit Services Family [facility] Work Phone: [facility] Work Phone: Start: 06-03-2022 End: 06-03-[address] TACHO MENENDEZ Facility: Start: 12-02-2021 End: 12-02-2021 Emergency department patient visit Services Family [facility] Work Phone: [facility] Start: 07-08-2020 Patient encounter procedure Bayron Mccarty TS-LYXXX-Msskce 310 IVF Work Phone: Start: 07-05-2020 Patient encounter procedure Bayron Mccarty UB-HJCOE-Dczezq 310 IVF Work Phone: Start: 06-19-2020 Patient encounter procedure Bayron Mccarty KK-NFUPC-Oqkdaj 310 IVF Work Phone: Start: 04-14-2020 Patient encounter procedure Bayron Mccarty WR-FRSHY-Tajpsk 310 IVF Work Phone: Start: 03-28-2020 Patient encounter procedure Bayron PAEZ-OBGYN-Risman 310 IVF Work Phone: Start: 2020 Patient encounter procedure Bayron Mccarty IN-BEGNH-Lgdcab 310 IVF Work Phone: Start: 01-24-2020 Patient encounter procedure Bayron PAEZ-OBGYN-Risman 310 IVF Work Phone: Start: 08-01-2017 End: 08-02-2017 Ambulatory Agustin Neidasriram Facility:CD:[id number] Start: 07-14-2017 End: 07-15-2017 Ambulatory Agustin Carrasquillosriram Facility:[id number] Procedures Date Procedure Procedure Detail Performing Clinician Start: 05-17-2024 Urnls dip stick/tabl et rgnt non-auto w/o micrscp Tacho Valienteo DO Work Phone: Start: 05-03-2024 ALL THYROID STIM HORMONE Tacho [...] Start: 03-05-2024 Plain chest X-ray Servi mal[employer] Work Phone: Start: 03-05-2024 Respiratory Panel (PCR) Services [employer] [facility] Work Phone: Start: 03-05-2024 Respiratory Panel (PCR) Services [employer] [facility] Work Phone: Start: 03-05-2024 Streptococcus pyogen es antigen assay Services [employer] [facility] Work Phone: Start: 02-26-2024 Streptococcus pyogen es antigen assay Services [employer] [facility] Work Phone: Start: 02-23-2024 Urnls dip [...] above: Performed By: #### T +S #### [facility] [address] [place] [address] Start: 07-05-2020 IO Ultrasound, limit ed pelvic, follicle monitoring Bayron Mccarty Start: 06-26-2020 IO Ultrasound, limit ed pelvic, follicle monitoring Bayron Mccarty Start: 05-10-2020 Assay of progesterone J oseph Bibiana Adenoid excision Bayron Porter madison Cholecystectomy Bayron Porterlm ey SARS Antigen (LFIA) Services [facility] Work Phone: Plan of Treatment Date Care Activity Detail Author Start: 12-22-2028 Screening for malign ant neoplasm of cervix [facility] Start: 12-22-2026 Screening for malign ant neoplasm of cervix [facility] [employer] Start: 03-01-2025 End: 03-01-2025 US MFM with or without consult US MFM with or without consult Imaging Routine Encounter for follow-up ultrasound of anatomy History of pre-eclampsia in prior , currently History of delivery, currently Obesity affecting in second trimester, unspecified obesity type Expected: 03/01/2025 (Approximate), Expires: 03/01/2025 [employer] Work Phone: Comment on above: Expected: 03/01/2025 (Approximate), Expires: 03/01/2025 Start: 01-18-2025 Adult BMI Screening Adult BMI Screen ing [facility] [employer] Start: 01-18-2025 Tobacco Screening [facility]ening [facility] [employer] Start: 05-27-2024 End: 05-27-2024 Patient encounter procedure 05/27/2024 10:20 AM EST Routine [facility] [address] [place] [id number] Tacho Menendez, [address] [place], [place] [id number] [facility] Start: 05-17-2024 Following clinical pathway protocol [facility] Start: 05-17-2024 End: 05-17-2024 Patient encounter procedure [facility] Comment on above: Arrived Start: 05-17-2024 End: 05-17-2025 CULTURE, GROUP B STREP WITH SUSCEPTIBLITY CULTURE, GROUP B STREP WITH SUSCEPTIBLITY Lab Routine Third trimester Expected: 05/17/2024, Expires: 05/17/2025 [facility] Work Phone: Comment on above: Expected: 05/17/2024 , Expires: 05/17/2025 Start: 05-17-2024 Group B Streptococcu s Culture Group B Streptococcus Culture [facility] Start: 05-03-2024 End: 05-03-2024 Patient encounter procedure 05/03/2024 2:50 PM EST Routine [facility] [address] [facility] [place] [address] Mena Ann PA [address] [facility] [address] [place], [place] [id number] [facility] Start: 04-22-2024 End: 04-22-2025 [...] PM EST Routine [facility] [address] [facility] [place] [place] [id number] Mena Ann PA [address] [facility] [address] [place], [place] [id number] [facility] Start: 03-30-2024 End: 03-30-2024 Patient encounter procedure 03/30/2024 2:45 PM EST Appointment [facility] - Ultrasound [address] [facility] [place] [phone] [facility] - Ultrasound Start: 03-22-2024 End: 03-22-2024 Patient encounter procedure 03/22/2024 1:50 PM EST Routine [facility] [address] [facility] [place] [address] Tacho Menendez, [address] [place], [place] [id number] [facility] Start: 03-22-2024 End: 03-22-2024 Professional / ancillary services management 03/22/2024 1:00 PM EST Ancillary Procedure [facility] [address] [place] [address] [facility] Start: 03-16-2024 End: 03-16-2024 Patient encounter procedure 03/16/2024 1:30 PM EST Routine [facility] [address] [facility] [place] [address] Tacho Menendez, DO [facility] [place] [address] [address] [facility] Start: 02-23-2024 End: 02-22-2025 [...] mellitus screening Expected: 02/23/2024 (Approximate), Expires: 02/22/2025 [facility] Comment on above: Expected: 02/23/2024 (Approximate), Expires: 02/22/2025 Start: 02-23-2024 End: 02-22-2025 US for US OB SCAN FOR GROWTH Imaging Routine size inconsistent with dates H/O premature delivery Expected: 02/23/2024 (Approximate), Expires: 02/22/2025 [facility] Comment on above: Expected: 02/23/2024 (Approximate), Expires: 02/22/2025 Start: 02-23-2024 End: 02-23-2024 Patient encounter procedure 02/23/2024 1:40 PM EDT Routine [facility] [address] [facility] [place] [address] Mena Ann, PA [address] [facility] [place] [address] Arrived [facility] Comment on above: Arrived Start: 02-18-2024 End: 02-18-2024 Patient encounter procedure 02/18/2024 2:30 PM EDT Routine [facility] [address] [place] [phone] Mena Ann, PA [address] [place], [place] [id number] [facility] Start: 01-11-2024 COVID-19 Vaccine ( season) COVID-19 Vaccine ( season) [facility] Start: 01-11-2024 Influenza vaccination [facility] Start: 09-17-2023 End: 09-17-2023 Nutrition therapy 09/17/2023 2:30 PM EDT [facility] Nutrition Therapy [facility] [address] [address] Anna Ortiz, RD [address] [place] [address] Red/Davis/0 Diet/Valera Nutrition Therapy Comment on above: Red/Davis/0 Diet/ Valera Start: 09-12-2023 End: 09-12-2023 Admission to same day surgery center 09/12/2023 3:30 PM EDT [facility] Surgery [address] [place] [address] Joo Bradley MD [address] [place] [address] Red/Kirk/0 Diet/Valera General Surgery Comment on above: Red/Kirk/0 Diet/Anth em Start: 09-05-2023 End: 09-05-2023 ambulatory 09/05/2023 11:45 AM EDT Results Only [facility] [address] [place] [address] [place] [address] [facility] Start: 08-20-2023 End: 11-19-2023 25-hydroxyvitamin D3 [Mass/volume] in Serum or Plasma VITAMIN D 25 HYDROXY Lab Routine Body mass index (BMI) of 50-59.9 in adult (HCC) Expected: 08/20/2023, Expires: 11/19/2023 [facility] Work Phone: Comment on above: Expected: 08/20/2023 , Expires: 11/19/2023 Start: 08-20-2023 End: 11-19-2023 CBC W Auto Differential panel - Blood COMPLETE BLOOD COUNT AND DIFFERENTIAL Lab Routine Body mass index (BMI) of 50-59.9 in adult (HCC) Expected: 08/20/2023, Expires: 11/19/2023 [facility] Work Phone: Comment on above: Expected: 08/20/2023 , Expires: 11/19/2023 Start: 08-20-2023 End: 11-19-2023 Cobalamin (Vitamin B12) [Mass/volume] in Serum or Plasma VITAMIN B12 Lab Routine Body mass index (BMI) of 50-59.9 in adult (HCC) Expected: 08/20/2023, Expires: 11/19/2023 [facility] Work Phone: Comment on above: Expected: 08/20/2023 , Expires: 11/19/2023 Start: 08-20-2023 End: 11-19-2023 Comprehensive metabolic 2000 panel - Serum or Plasma COMPREHENSIVE METABOLIC PANEL Lab Routine High blood cholesterol Body mass index (BMI) of 50-59.9 in adult ([facility]) Expected: 08/20/2023, Expires: 11/19/2023 [facility] Work Phone: Comment on above: Expected: 08/20/2023 , Expires: 11/19/2023 Start: 08-20-2023 End: 11-19-2023 Ferritin [Mass/volume] in Serum or Plasma FERRITIN Lab Routine Body mass index (BMI) of 50-59.9 in adult ([facility]) Expected: 08/20/2023, Expires: 11/19/2023 [facility] Work Phone: Comment on above: Expected: 08/20/2023 , Expires: 11/19/2023 Start: 08-20-2023 End: 11-19-2023 Folate [Mass/volume] in Serum or Plasma FOLATE, SERUM Lab Routine Body mass index (BMI) of 50-59.9 in adult ([facility]) Expected: 08/20/2023, Expires: 11/19/2023 [facility] Work Phone: Comment on above: Expected: 08/20/2023 , Expires: 11/19/2023 Start: 08-20-2023 End: 11-19-2023 Helicobacter pylori IgG Ab [Presence] in Serum or Plasma by Immunoassay H PYLORI IGG AB Lab Routine Body mass index (BMI) of 50-59.9 in adult ([facility]) Expected: 08/20/2023, Expires: 11/19/2023 [facility] Work Phone: Comment on above: Expected: 08/20/2023 , Expires: 11/19/2023 Start: 08-20-2023 End: 11-19-2023 Hemoglobin A1c in Blood HEMOGLOBIN A1C Lab Routine Body mass index (BMI) of 50-59.9 in adult ([facility]) Expected: 08/20/2023, Expires: 11/19/2023 [facility] Work Phone: Comment on above: Expected: 08/20/2023 , Expires: 11/19/2023 Start: 08-20-2023 End: 11-19-2023 Iron and Iron binding capacity panel - Serum or Plasma IRON AND TIBC Lab Routine Body mass index (BMI) of 50-59.9 in adult ([facility]) Expected: 08/20/2023, Expires: 11/19/2023 [facility] Work Phone: Comment on above: Expected: 08/20/2023 , Expires: 11/19/2023 Start: 08-20-2023 End: 11-19-2023 Lipid 1996 panel - Serum or Plasma LIPID PANEL BASIC Lab Routine High blood cholesterol Body mass index (BMI) of 50-59.9 in adult ([facility]) Expected: 08/20/2023, Expires: 11/19/2023 [facility] Work Phone: Comment on above: Expected: 08/20/2023 , Expires: 11/19/2023 Start: 08-20-2023 End: 11-19-2023 Natriuretic peptide.B prohormone N-Terminal [Mass/volume] in Serum or Plasma NT PRO BNP Lab Routine Body mass index (BMI) of 50-59.9 in adult ([facility]) Expected: 08/20/2023, Expires: 11/19/2023 [facility] Work Phone: Comment on above: Expected: 08/20/2023 , Expires: 11/19/2023 Start: 08-20-2023 End: 11-19-2023 NICOTINE & METAB, UR NICOTINE & METAB, UR Lab Routine Body mass index (BMI) of 50-59.9 in adult ([facility]) Expected: 08/20/2023, Expires: 11/19/2023 [facility] Work Phone: Comment on above: Expected: 08/20/2023 , Expires: 11/19/2023 Start: 08-20-2023 End: 11-19-2023 Thyrotropin [Units/volume] in Serum or Plasma THYROID STIMULATING HORMONE Lab Routine Angel's thyroiditis Body mass index (BMI) of 50-59.9 in adult (HCC) Expected: 08/20/2023, Expires: 11/19/2023 [facility] Work Phone: Comment on above: Expected: 08/20/2023 , Expires: 11/19/2023 Start: 08-20-2023 End: 11-19-2023 TOXICOLOGY SCREEN, ROUTINE URINE TOXICOLOGY SCREEN, ROUTINE URINE Lab Routine Body mass index (BMI) of 50-59.9 in adult ([facility]) Expected: 08/20/2023, Expires: 11/19/2023 [facility] Work Phone: Comment on above: Expected: 08/20/2023 , Expires: 11/19/2023 Start: 08-20-2023 End: 11-19-2023 VITAMIN B1 (THIAMINE), WHOLE BLOOD VITAMIN B1 (THIAMINE), WHOLE BLOOD Lab Routine Body mass index (BMI) of 50-59.9 in adult ([facility]) Expected: 08/20/2023, Expires: 11/19/2023 [facility] Work Phone: Comment on above: Expected: 08/20/2023 , Expires: 11/19/2023 Start: 05-12-2023 Behavioral Health Screening Behavioral Health Screening [facility] Start: 01-10-2023 Covid-19 Vaccine ( season) Covid-19 Vaccine ( season) [facility] Start: 12-02-2021 Plain chest X-ray XR chest 1V [facility] Start: 12-02-2021 XR Chest Single view [facility] Work Phone: Start: 2021 Screening for malign ant neoplasm of cervix HPV Testing [facility] Start: 2012 Screening for malign ant neoplasm of cervix Pap Testing [facility] Start: 2010 Hepatitis B Vaccine (1 of 3 - 19+ 3-dose series) Hepatitis B Vaccine (1 of 3 - 19+ 3-dose series) [facility] Start: 2009 Adult BMI Follow Up Plan Adult BMI Follow Up Plan [facility] Start: 2009 HIV screening HIV Screening [facility] Start: 2003 Depression Screening Depression Dana juares [facility] Start: 2002 DTaP,Tdap and Td Vaccines (6 - Tdap) DTaP,Tdap and Td Vaccines (6 - Tdap) [facility] Start: 2002 Urine microalbumin profile DTaP,Tdap,Td Vaccine (6 - Tdap) [facility] End: 08-19-2024 ECG COMPLETE ECG COMPLETE ECG Routine Body mass index (BMI) of 50-59.9 in adult (HCC) 1 Occurrences starting 08/20/2023 until 08/19/2024 [facility] Work Phone: Comment on above: 1 Occurrences starti ng 08/20/2023 until 08/19/2024 Patient Education [facility] Work Phone: Patient referral [facility] Work Phone: Thyrotropin [Units/volume] in Serum or Plasma TSH Lab Routine Thyroid disease (CMS/HCC) Ordered: 04/22/2024 [facility] Comment on above: Ordered: 04/22/2024 End: 09-18-2024 US Abdomen RUQ US ABD RIGHT UPPER QUADRANT Radiology Routine Body mass index (BMI) of 50-59.9 in adult (HCC) 1 Occurrences starting 08/20/2023 until 09/18/2024 [facility] Work Phone: Comment on above: 1 Occurrences starti ng 08/20/2023 until 09/18/2024 End: 09-18-2024 XR Chest PA and Lateral XR CHEST 2V FRONTAL/LAT Radiology Routine Body mass index (BMI) of 50-59.9 in adult (HCC) 1 Occurrences starting 08/20/2023 until 09/18/2024 [facility] Work Phone: Comment on above: 1 Occurrences starti ng 08/20/2023 until 09/18/2024 [id number] 310 [facility] Work Phone: [facility] NEGATED: Highlighted row has been ruled out! Planned Goals not documented [id number] 310 IV[facility] Work Phone: Immunizations Immunization Date Immunization Notes Care Provider Fa fe 03-11-2023 influenza virus vacc ine, unspecified formulation Tacho Menendez DO Work Phone: [facility] Payers Date Payer Category Payer Self-pay [id number] 2022 Medicaid [id number] 2022 Medicaid [id number] 1991 Unknown [id number] 2.16.840.1.477399.3.579.2.59 3 1991 Unknown [id number] 2.16.840.1.921429.3.579.2.12 86 1991 Unknown [id number] 2.16.840.1.064717.3.579.2.12 86 1991 Unknown [id number] 2.16.840.1.583885.3.579.2.12 86 1991 Unknown [id number] 2.16.840.1.608174.3.579.2.12 86 1991 Unknown [id number] 2.16.840.1.652563.3.579.2.12 86 1991 Unknown [id number] 2.16.840.1.717720.3.579.2.12 59 1991 Unknown [id number] 2.16.840.1.086824.3.579.2.12 59 1991 Unknown [id number] 2.16.840.1.071525.3.579.2.12 59 1991 Unknown [id number] 2.16.840.1.678324.3.579.2.12 59 1991 Unknown [id number] 2.16.840.1.231581.3.579.2.12 59 1991 Unknown [id number] 2.16.840.1.086349.3.579.2.12 59 1991 Unknown [id number] 2.16.840.1.197348.3.579.2.12 59 1991 Unknown [id number] 2.16.840.1.925146.3.579.2.12 59 1991 Unknown [id number] 2.16.840.1.854102.3.579.2.12 59 1959 Medicaid [id number] Private Health Insurance [facility] [id number] Unknown [id number] Unknown Regular Insurance [id number] Unknown [employer] [id number] Unknown Regular Auto/Medical [id number] Unknown [id number] 2.16.840.1.857543.3.579.2.53 1 Unknown [id number] 2.16.840.1.634553.3.579.2.53 1 Unknown [id number] 2.16.840.1.678339.3.579.2.53 1 Unknown [id number] 2.16.840.1.758468.3.579.2.53 1 Social History Date Type Detail Facility Start: 12-02-2021 End: 03-05-2024 Tobacco smoking status OHIS Never smoked tobacco (finding) [facility] Start: 1990 Sex Assigned At Female [facility] Start: 08-20-2023 End: 10-30-2023 Sex Assigned At [facility] Other Start: 05-17-2023 End: 08-20-2023 Tobacco use and exposure Smokeless tobacco non-user [facility] Work Phone: Start: 08-20-2023 End: 05-17-2024 Alcohol intake Current drinker of alcohol (finding) [facility] Start: 08-20-2023 End: 10-30-[address] [facility] National Score (1-100), lower number is lower risk 86 [facility] Start: 08-20-2023 Alcohol Comment occ [facility] Start: 1990 Sex Assigned At Not on file [facility] Start: 08-26-2023 Gender identity Identifies as female gender (finding) [facility] Start: 08-26-2023 Sexual orientation Heterosexual (fin ding) [facility] Start: 09-14-2023 [facility] How often to you hav e a [...] Start: 01-19-2024 Alcoholic beverage intake Ex-drinker (finding) [facility] Start: 12-13-2014 End: 05-19-2024 Sex Female (finding) [facility] NEGATED: Highlighted row - - [id number] 310 IV[facility] Work Phone: Functional Status Date Assessment Result Facility NEGATED: Highlighted row Functional performance Functional status health issues are not documented Disease [id number] 310 IV[facility] Work Phone: Mental Status Date Assessment Result Facility NEGATED: Highlighted row Cognitive function [Interpretation] Cognitive status health issues are not documented Disease [id number]-Ldzrmo 310 IV[facility] Work Phone: Clinical Notes 01-08-2023 to 05-17-2024 Emma Mcbride LPN - 05/17/2024 3:10 PM GERARDO Hunter 05/03/2024 2:50 PM Fawad Fernandez LPN - 04/22/2024 9:40 AM GERARDO Hunter - 04/06/2024 1:30 PM GERARDO Hunter - 02/23/2024 1:40 PM EDT Note Date & Type Note Facility 05-17-2024 History of Presen t illness Narrative Reason [...] SYSTEMS Review of Systems: Review of Systems OBJECTIVE Objective: Physical Exam Constitutional: Appearance: Normal appearance. She is well-developed. Genitourinary: Vulva normal. Cardiovascular: Rate and Rhythm: Normal rate and [...] nursing note reviewed. Exam conducted with a mottler machine feeder present. Vitals: Estimated body mass index is 49.41 kg/m as calculated from the following: Height as of 08/26/22: 5' 6 . Weight as of this encounter: 306 lb 1.9 oz. BP: 118/80 Patient's last menstrual period was 08/24/2023. ASSESSMENT & PLAN ICD-10-CM 1. 37 weeks gestation of Z3A.37 POCT urinalysis dipstick manually resulted 2. Third trimester Z34.93 POCT urinalysis dipstick manually resulted CULTURE, GROUP B STREP WITH SUSCEPTIBLITY CULTURE, GROUP B STREP WITH SUSCEPTIBLITY Patient is doing well but has complaints of being tired and having maternal discomfort due to . Patient verbalized frequent movement and was instructed to perform kick counts three times per day. labor precautions were given, LARC consent was signed/declined, and GBS was obtained. Cervical check was performed and patient is 0cm dilated. Orders Placed This Encounter Procedures CULTURE, GROUP B STREP WITH SUSCEPTIBLITY POCT urinalysis dipstick manually resulted Follow Up: Patient is to return to office in 1 week for routine OB appointment Documented by Emma Mcbride LPN on behalf of: Tacho Menendez DO documented in this encounter [facility] 05-03-2024 History of Presen t illness Narrative [...] of: GERARDO Vazquez documented in this encounter [facility] 04-22-2024 History of Presen t illness [...] IUI 07/10/20 [facility] SALPINGECTOMY Left 2012 ectopic REVIEW OF [...] nursing note reviewed. Exam conducted with a mottler machine feeder present. Vitals: Estimated body mass index is [...] Tacho Menendez DO documented in this encounter [facility] 04-06-2024 History of Presen t illness [...] @ age 6 or 7 CHOLECYSTECTOMY 07/20/2019 (Ninoteddelbert) ERCP 06/2019 OTHER SURGICAL HISTORY 2020 IUI [...] of: GERARDO Vazquez documented in this encounter [facility] 03-22-2024 History of Presen t illness [...] Morbid obesity with BMI of 50.0-59.9, adult ([facility]) Vaginal delivery HISTORY PAST MEDICAL HISTORY SOCIAL HISTORY Past Medical History: Diagnosis Date Abdominal pain Breast pain, right Cholelithiasis Encounter for cervical smear to confirm findings of recent normal smear following initial abnormal smear Angel's disease (CMS/HCC) Hypothyroidism (CMS/HCC) Morbid obesity (CMS/HCC) Morbid obesity with BMI of 50.0-59.9, adult (CMS/[facility]) Vaginal delivery Social History Tobacco Use Smoking [...] @ age 6 or 7 CHOLECYSTECTOMY 07/20/2019 (Itzkowitz) ERCP 06/2019 OTHER SURGICAL HISTORY 2020 IUI 07/10/20 [facility] SALPINGECTOMY Left 2012 ectopic REVIEW OF [...] nursing note reviewed. Exam conducted with a mottler machine feeder present. Vitals: Estimated body mass index is [...] Tacho Menendez DO documented in this encounter [facility] 02-23-2024 History of Presen t illness [...] IUI 07/10/20 [facility] SALPINGECTOMY Left 2012 ectopic REVIEW OF [...] nursing note reviewed. Exam conducted with a mottler machine feeder present. Vitals: Estimated body mass index is [...] of: GERARDO Vazquez documented in this encounter [facility] 01-20-2024 History of Presen t illness [...] IUI 07/10/20 [facility] SALPINGECTOMY Left 2012 ectopic REVIEW OF [...] nursing note reviewed. Exam conducted with a mottler machine feeder present. Vitals: Estimated body mass index is [...] notified. Pt has follow up appt at [facility] in four weeks. Pt to return to office in four weeks for scheduled OB appt. Documented by Priscilla Fernandez LPN on behalf of: Tacho Menendez DO documented in this encounter [facility] 10-09-2023 Note HNO ID: [id number] Author: LATONIA GREENE, PhD Service: ? Author Type: Psychologist Type: Progress Notes Filed: 10/17/2023 11:09 Note Text: [facility]HAVIORAL HEALTH EVALUATION BMI Surgical Pathway Visit type: Psychology Visit DATE OF SERVICE: October 09, 2023 TIME OF SERVICE: 1:00 PM - 2:00 PM COST CENTER: [facility] CPT CODE: - [id number] Virtual Psych Diagnostic Eval BILLING CODE: ENDO MICHELLE Greene DATE OF FIRST SERVICE THIS CYCLE: October 09, 2023 SESSION #: 1 I have communicated my name and active licensure. The patient's identity and physical location (see below) were verified at the time of this visit. Either the patient or their legal sales representative printing paper has been informed of the risks and benefits of -- and alternatives to -- treatment through a remote evaluation and consents to proceed with the evaluation remotely. This evaluation is NOT intended for forensic, disability or child custody purposes. The patient e-signed a copy of the consent form via [employer] and the [facility] insurance benefits, fees for service, emergency [...] in case of emergency and/or disconnection. [address] [place] [address] (Change address in [facility], was mother) Alternate Ribber Bibi Arrieta (Mother) [phone] (Home Phone) Patient identified the following plan to follow in case of emergency: Go to emergency room (nearest is [facility]) or call 911. IDENTIFYING INFORMATION: [...] pt has l (more content not included)... [facility] 09-22-2023 Telephone encounter Note Can not schedule patient as there is already a patient scheduled for that day and time. Please advise. Thanks Meme Castrejon [facility] 09-22-2023 Telephone encounter Note ----- Message from Anna Ortiz RD sent at 09/17/2023 3:17 PM EDT ----- Regarding: virtual follow up Please schedule for a virtual up 6/7 at 1. The patient is aware, no call needed. Thank you! Anna [facility] 09-22-2023 Miscellaneous Notes Can not schedule [...] levels, no answer, left vm. Tonya Senior APRN.BOOKING CLERK documented in this encounter [facility] 09-17-[address] - [...] full-liquid diet. Examples: Slim Fast Advanced Nutrition [place] Breakfast Essentials Light Start Drink mixed with [...] Bariatric Multivitamin and Calcium Citrate (total of 8975-3997 mg/day) * take calcium citrate separately from Multivitamin with iron at least 2 hours apart and 4 hours apart from additional calcium www.[email or web address] - Bariatric Choice: 4 Complete Multivitamins (chewables) per day Www.bariatricchoice.com - Bariatric Advantage: 2 Multivitamins and 3 Calcium Citrate Chewables per day * take calcium citrate separately from Multivitamin with iron at least 2 hours apart and 4 hours apart from additional calcium Www.[email or web address] Start practicing eating slowly, chewing each bite of food 20-30 x per bite, making meals last 20-30 minutes, separatign food and fluids by 30 minutes . Have all meals and snacks at the table with no distractions. Make placemat for reminders; work towards normal sleep/wake pattern Pre-op goal weight: 281 pounds Protein needs: 85 grams per day documented in this encounter [facility] 09-17-2023 Note HNO ID: [id number] Author: ANNA ORTIZ RD Service: ? Author Type: Registered Dietitian Type: Progress Notes Filed: 09/17/2023 15:19 Note Text: [facility] Nutrition Therapy: Virtual Consult - Initial Assessment I have communicated my name and active licensure. The patient?s identity and physical location were verified at the time of this visit. Either the patient or their legal sales representative printing paper has been informed of the risks and [...] Your Guide to Surgery by next session [email or web address]/ [email or web address] 2. Do not skip [...] Examples: ? Slim Fast Advanced Nutrition ? [place] Breakfast Essentials ?Light Start? Drink mixed with [...] in the AM, 2 in the PM) www.[email or web address].VCV - [employer]: 1 Bariatric Multivitamin and Calcium Citrate (total of 9995-1079 mg/day) * take calcium citrate separately from Multivitamin with iron at least 2 hours apart and 4 hours apart from additional calcium [email or web address] - Bariatric Choice: 4 Complete Multivitamins (chewables) per day Www.bariatricchoice.com - Bariatric Advantage: 2 Multivitamins and 3 Calcium Citrate Chewables per day * take calcium citrate separately from Multivitamin with iron at least 2 hours apart and 4 hours apart from additional calcium Www.[email or web address] Start practicing eating slowly, chewing each bite [...] and using Phen (more content not included)... [facility] 09-17-2023 History of Presen t illness Narrative [facility] Nutrition Therapy: Virtual Consult - Initial Assessment I have communicated my name and active licensure. The patient s identity and physical location were verified at the time of this visit. Either the patient or their legal sales representative printing paper has been informed of the risks and [...] Your Guide to Surgery by next session [email or web address]/ [email or web address]?[email or web address] 2. Do not [...] full-liquid diet. Examples: Slim Fast Advanced Nutrition Colmar Breakfast Essentials Light Start Drink mixed with [...] Bariatric Multivitamin and Calcium Citrate (total of 2103-5003 mg/day) * take calcium citrate separately from Multivitamin with iron at least 2 hours apart and 4 hours apart from additional calcium [email or web address].[email or web address] - Bariatric Choice: 4 Complete Multivitamins (chewables) [...] suggested by 180 Initial weight: 295 lbs. [place] body weight is 155 lbs. Excess body weight is 140 lbs. Goal weight pre-op is 281 lbs. Protein needs are estimated at 85gm (1.2 - protein/kg IBW) Patient meets the National Institutes of Health guidelines for weight loss surgery and has [employer] therefore is required to complete 0 [...] pizz rolls, sandwich, chips Snack - archie cunninghamvookalyson cheese crackers Beverages - water, juice Alcohol- [...] TIME: 2:25 PM documented in this encounter [facility] 09-11-2023 Telephone encounter Note Attempted to call pt, re: hypothyroid and low vitamin d levels, no answer, left vm. Tonya Senior APRN.BOOKING CLERK [facility] 09-01-2023 Note HNO ID: [id number] Author: LATONIA GREENE, PhD Service: ? Author Type: Psychologist Type: Progress Notes Filed: 09/01/2023 13:22 Note Text: [facility] Progress Note 09/01/2023 Billing code: Jerel Patient did not attend, cancel, or reschedule this appointment. Provider left HIPAA compliant voicemail and [employer](BHI)t message with contact information to reschedule. Latonia Greene, PhD Clinical Psychologist [facility] 09-01-2023 History of Presen t illness Narrative [facility] Progress Note 09/01/2023 Billing code: Jerel Patient did not attend, cancel, or reschedule this appointment. Provider left HIPAA compliant voicemail and [employer](BHI)t message with contact information to reschedule. Latonia Greene PhD Clinical Psychologist documented in this encounter [facility] 08-20-2023 Note HNO ID: [id number] Author: TONYA SENIOR APRN.BOOKING CLERK Service: ? Author Type: Nurse Practitioner Type: Progress Notes Filed: 08/20/2023 16:21 Note Text: have communicated my name and active licensure. The patient's identity and physical location were verified at the time of this visit. Either the patient or their legal sales representative printing paper has been informed of the risks and benefits of -- and alternatives to -- treatment through a remote evaluation and consents to proceed with the evaluation remotely. BMI MEDICAL CONSULT I have communicated my name and active licensure. The patient's identity and physical location were verified at the time of this visit. 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 [facility] 08-20-2023 History of Presen t illness Narrative Images from the original note were not included. have communicated my name and active licensure. The patient's identity and physical location were verified at the time of this visit. Either the patient or their legal sales representative printing paper has been informed of the risks and benefits of -- and alternatives to -- treatment through a remote evaluation and consents to proceed with the evaluation remotely. BMI MEDICAL CONSULT I have communicated my name and active licensure. The patient's identity and physical location were verified at the time of this visit. Either the patient or their legal sales representative printing paper has been informed of the risks and [...] Exercise: active lifestyle with toddler, works in [employer] at [employer] Functional Capacity: -Walk 4 blocks on [...] PANEL - LIPID PANEL BASIC Tonya Senior, FRED.BOOKING CLERK -- Recommend that she should not become [...] Obesity Medicine Visit documented in this encounter [facility] 06-13-2023 Evaluation note Encounter Date Diagnosis [...] 8 weeks -Handed patient self referral to [facility] bariatric surgery program -Ovfgq-bv-tvty A1c December 2022 5.4%-Follow up in clinic in 8 weeksThis note was created with voice recognition software. 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 Jun, Dietary surveillance and counseling (ICD-10 [...] for a goal of 5% weight reduction. [facility] 08-30-2023 Evaluation note* Encounter Date Diagnosis [...] on in the past and denies side hatitii-Xwzff-nf-care A1c today 5.4%-Follow up in clinic in 4 weeksThis note was created with voice recognition software. 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 Dec, Dietary surveillance and counseling (ICD-10 [...] premade protein drink for breakfast, by plain Serbian yogurt and flavor yourself with cinnamon or [...] with the patient, and documenting clinical information. [facility] Other [place] complaint+Reason for visit Narrative* Chief Complaint Obesity Reason for Visit Exercise counseling Severe obesity (BMI >= 40) [facility] Work Phone: [place] complaint+Reason for visit Narrative* Chief Complaint Pos test, Cramping, Vaginal bleeding Reason for Visit Exercise counseling Severe obesity (BMI >= 40) [facility] Work Phone: evaluation noteNo assessment information available [facility] Work Phone: evaluation note* Diagnosis Onset Date Resolution Status Exercise counseling acute Severe obesity (BMI >= 40) delilah kevin [facility] Work Phone: Evaluation note* Diagnosis Body mass index (BMI) of 50-59.9 in adult (HCC)- Primary Body Mass Index 50.0-59.9, adult Angel's thyroiditis Chronic lymphocytic thyroiditis High blood cholesterol Pure hypercholesterolemia documented in this encounter [facility] note* Diagnosis NO SHOW- Primary documented in this encounter [facility] note* Diagnosis Obesity, Class III, BMI 40-49.9 (morbid obesity) ([facility])- Primary Morbid obesity Dietary counseling Dietary surveillance and counseling [facility] Diagnosis Vitamin D deficiency- Primary Unspecified vitamin D deficiency [facility] Diagnosis 25 weeks gestation of Second trimester state, incidental Diabetes mellitus screening Screening for diabetes mellitus size inconsistent with dates H/O premature delivery documented in this encounter [facility]* Diagnosis Encounter for follow-up ultrasound of anatomy- Primary History of pre-eclampsia in prior , currently with other poor obstetric history History of delivery, currently with history of pre-term labor Obesity affecting in second trimester, unspecified obesity type [facility] Diagnosis Third trimester state, incidental 29 weeks gestation of documented in this encounter [facility] Healthcare[facility]* Diagnosis Third trimester state, incidental 31 weeks gestation of H/O premature delivery documented in this encounter [facility] Healthcare[facility]* Diagnosis 33 weeks gestation of Third trimester state, incidental H/O premature delivery Thyroid disease (CMS/HCC) Unspecified disorder of thyroid H/O pre-eclampsia in prior , currently documented in this encounter [facility] HealthcareEvaluation note* Diagnosis Second trimester state, incidental documented in this encounter [facility] Healthcare[facility]* Diagnosis 35 weeks gestation of Third trimester state, incidental documented in this encounter [facility] Healthcare[facility] note* Diagnosis 37 weeks gestation of Third trimester state, incidental [facility] N[facility] - Reported* Type Description Date Surgical History adnoidectomy Surgical History gall bladder Surgical History L Fallopian tube removed Hospitalization History See Above [facility] Other Hospital Discharge instructions Additional Instructions You may take rsuz-lbo-xcujedh cough and cold medication as needed You may take xmjn-yqt-zbwerdl Tylenol and/or ibuprofen as needed Increase oral fluids Follow-up with family doctor as needed Return to the ER for any acute difficulty breathing high fever vomiting or any other concernsFirOhio[facility] Work Phone: Hospital Discharge instructions Additional Instructions Nothing into vagina until seen by FABRIC WORKER May take Tylenol for discomfort Increase oral fluids Follow-up with FABRIC WORKER Return to the ER for heavy bleeding greater than a pad an hour feeling dizzy lightheaded or any other concernsFirOhioHealth [facility] Work Phone: Hospital Discharge instructions Additional Instructions Follow-up with your OB in the next week.[facility] Work Phone: InstructionsNot on filedocumented in this encounter [facility] (n[facility]ative)* Diagnostic Procedure Only (Routine) - Pending Review Specialty Diagnoses / Procedures Referred By Contac t Referred To Contact [facility] Diagnoses Body mass index (BMI) of 50-59.9 in adult (HCC) Procedures US ABD RIGHT UPPER QUADRANT US ABDOMINAL REAL TIME W/IMAGE LIMITED Tonya Senior APRN.MERON [id number] [place] [address] Referral ID Status Reason Start Date Expiration Date Visits Requested Visits Authorized [id number] Pending Review Auto-Generat ed Referral 08/20/2023 09/18/2024 1 1 * Outpatient Procedure (Routine) - Pending Review Specialty Diagnoses / Procedures Referred By Contac t Referred To [facility] Diagnoses Body mass index (BMI) of 50-59.9 in adult (HCC) Procedures ECG COMPLETE ECG ROUTINE ECG W/LEAST 12 LDS W/I&R Tonya Senior APRN.BOOKING CLERK [address] [place] [address] [facility] [address] [place] [address] Referral ID Status Reason Start Date Expiration Date Visits Requested Visits Authorized [id number] Pending Review Auto-Generat ed Referral 08/20/2023 08/19/[address] [facility] Summary Purpose Family History Mother Name [...] Chief Complaint Sore throat sore throat, cp Chief Complaint Admit Date Sore throat February 26, 2024 7 :40pm sore throat, cp March 05, 2024 7 :48pm Unknown May 17, 2024 3: 30pm Additional Source Comments INFORMATION SOURCE (unrecogn ized section and content) DATE CREATED AUTHOR 10/31/2017 [facility] DATE CREATED AUTHOR AUTHOR'S ORGANIZ ATION 04/23/2020 [place] [facility] DATE CREATED AUTHOR AUTHOR'S ORGANIZ ATION 08/08/2020 [employer] DATE CREATED AUTHOR AUTHOR'S ORGANIZ ATION 08/22/2020 [facility] DATE CREATED AUTHOR AUTHOR'S ORGANIZ ATION 06/11/2022 [facility] DATE CREATED AUTHOR AUTHOR'S ORGANIZ ATION 09/06/2023 [facility] DATE CREATED AUTHOR AUTHOR'S ORGANIZ ATION 10/03/2023 [facility] DATE CREATED AUTHOR AUTHOR'S ORGANIZ ATION 10/18/2023 [facility] DATE CREATED AUTHOR AUTHOR'S ORGANIZ ATION 01/20/2024 [facility] DATE CREATED AUTHOR AUTHOR'S ORGANIZ ATION 03/19/2024 [facility] DATE CREATED AUTHOR AUTHOR'S ORGANIZ ATION 04/30/2024 [facility] DATE CREATED AUTHOR AUTHOR'S ORGANIZ ATION 05/05/2024 [facility] dical Specialists EPIC Care Teams (unrecognized sec tion and content) Team Status: Inactive Member Role Status Dates Services Family Health Primary Care Provider Active Ck To PA-C Emergency Provider Active Team Status: Active Member Role Status Dates Services Family Health Primary Care Provider Active Team Status: Inactive Member Role Status Dates Services Family Health Primary Care Provider Active Marychuy Kyle DIRECTOR OF LABORATORY OPERATIONS-BC Emergency Provider Active Team Status: Inactive Member [...] End: October 06, 2023 Marychuy Kyle , DIRECTOR OF LABORATORY OPERATIONS-BC Emergency Provider Active Start: October 06, 2023 [...] March 05, 2024 End: March 05, 2024 Team Status: Inactive Member Role Status Dates Tacho Menendez DO Attending Provider Active Start : May 17, 2024 End: May 17, 2024 Goals (unrecognized section and content) Goals [...] encounterGoals may be documented in an alternate sectionGoals [...] prosecute any alcohol or drug abuse patient.[facility] the event this information is protected by the Federal Confidentiality of Alcohol and Drug Abuse Patient Records regulations: The Federal rules restrict any use of the information to criminally investigate or prosecute any alcohol or drug abuse patient.[facility] the event this information is protected by the Federal Confidentiality of Alcohol and Drug Abuse Patient Records regulations: The Federal rules restrict any use of the information to criminally investigate or prosecute any alcohol or drug abuse patient.[facility] the event this information is protected by the Federal Confidentiality of Alcohol and Drug Abuse Patient Records regulations: The Federal rules restrict any use of the information to criminally investigate or prosecute any alcohol or drug abuse patient.[facility] the event this information is protected by the Federal Confidentiality of Alcohol and Drug Abuse Patient Records regulations: The Federal rules restrict any use of the information to criminally investigate or prosecute any alcohol or drug abuse patient.[facility] the event this information is protected by the Federal Confidentiality of Alcohol and Drug Abuse Patient Records regulations: The Federal rules restrict any use of the information to criminally investigate or prosecute any alcohol or drug abuse patient.[facility] FOR RECORDS PERTAINING TO PATIENTS WHO [...] BE BASED ON THE PRIMARY CLINICAL RECORDS. [facility] [employer] [facility]. provides no warranty or guarantee of the accuracy or completeness of information in this document.
--- NOTE | 2024-05-22 13:04 | US_ITS ---
[id number] Patient Name: FABRIZIO PAINTING MRN: [id number] date: 1990 Sex: F Assigned Patient Location: [facility] Current Patient Location: Accession/Order Number: [id number] Exam Date: 05/22/2024 13:06 Report Date: 05/22/2024 15:58 At the request of: HENRY URBAN Procedure: US OB BPP w non-stress EXAMINATION: US OB BPP w non-stress HISTORY:History of premature delivery COMPARISON: Ultrasound OB biophysical 05/14/2024 TECHNIQUE: Ultrasound biophysical profile was performed in the radiology department. BREATHING MOVEMENTS: 2 GROSS BODY MOVEMENTS: 2 TONE: 2 QUALITATIVE AMNIOTIC FLUID VOLUME: 2 PRESENTATION: CEPHALIC HEART RATE: 146.74 bpm AMNIOTIC FLUID VOLUME: 11.22 cm GESTATIONAL AGE: 37 weeks 6 days US/US OB BPP w non-stress IMPRESSION: Total biophysical profile score: 8 Electronically authenticated by: FAM PHELPS Date: 05/22/2024 15:58
[2024-05-22 13:20] VITALS: BP 127/65; PULSE 94
== END 2024-05-22 13:50 | disposition home or self-care (01) ==
LOC: US 00:32 → FBC 13:00
PROVIDERS: Visit Provider Physician Assistant
DX: O26.893 Other specified pregnancy related conditions, third trimester (principal); Z3A.37 37 weeks gestation of pregnancy
CPT/HCPCS: 76818

== ENCOUNTER 2024-05-24 21:41 | Outpatient (OUT) | payer MEDICAID, SELFPAY ==
--- OUTSIDE RECORDS SUMMARY | 2024-05-25 00:34 | XMS_ITS | CCD ---
Author Organization [facility] Care Team Providers Care Heat Seal Operator Name Role Phone Agustin Patton Unavailable Unavailable Agustin Patton Unavailable Unavailable Bayron Mccarty Unavailable Unavailable Unavailable Unavailable Unavailable Unavailable Unavailable Unavailable [facility] Primary Care Provider DEMETRIUS To Emergency Provider DR TACHO MENENDEZ Attending Unavailable DR TACHO MENENDEZ Consulting Unavailable DR TACHO MENENDEZ Admitting Unavailable [facility] Primary Care Provider Anabella [facility] Marychuy E Emergency Provider Nicholas Michaels Unavailable [facility] Services Primary Care Provider DO Nicholas Michaels Attending Provider Unavailable Primary Care Provider Unavailabl e Unavailable Primary Care Provider Unavailabl e LATONIA GREENE Attending Unavailable TONYA SENIOR Attending Unavailable [facility] Primary Care Provider Anabella [facility] Marychuy E Emergency Provider LATONIA GREENE Referring Unavailable LATONIA GREENE Attending Unavailable ANNA ORTIZ Attending Unavailable TONYA SENIOR Referring Unavailable TONYA SENIOR Referring Unavailable TACHO MENENDEZ Referring Unavailable MAKEDA GROSS Attending Unavailable TACHO MENENDEZ Referring Unavailable Unavailable Primary Care Provider Unavailabl e [facility] Primary Care Provider [phone] DEMETRIUS To Emergency Provider [phone] Unavailable Primary Care Provider UnavailDO Devika Nicholas Emergency Provider [phone] SHON, TACHO R Referring Unavailable SHON, TACHO R Referring Unavailable SHON, TACHO R Referring Unavailable [facility] Primary Care Provider Ck To PA-C Emergency Provider [phone] Devika De La Garza DO Emergency Provider [phone] Shon DO, Tacho Attending Provider [phone] SHON, TACHO Attending Unavailable MARISSA, MENA Attending Unavailable SHON, TACHO Attending Unavailable MARISSA, MENA Attending Unavailable SHON, TACHO Attending Unavailable MARISSA, MENA Attending Unavailable SHON, TACHO Attending Unavailable MARISSA, MENA Attending Unavailable SHON, TACHO Attending Unavailable [facility] Primary Care Unavaila ble Bullimore, Marychuy E Admitting Unavailable Bullimore, Marychuy E Attending Unavailable Shon, Tacho Admitting Unavailable Shon, Tacho Attending Unavailable [facility] Primary Care Unavaila Nicholas Willams Admitting Unavailable Nicholas Michaels Attending Unavailable Ck To Attending Unavailable [facility] Primary Care Unavaila Ck Castrejon Admitting Unavailable Devika De La Garza Admitting Unavailable Devika De La Garza Attending Unavailable [facility] Services [facility] Care Unavaila ble Medications Current Medications Medication Drug Class(es) Dates [...] mg/ml oral solution (3 sources) Phenothiazine, Uncompetitive L-oscumy-G-aspartate Receptor Antagonist, Sigma-1 Agonist Start: 02-26-2024 take [...] Daily 30 tablet 11 10/30/2023 10/29/2024 Active [place] (No Known Home Meds) (3 sources) Start: 10-06-2023 [place] (No Kn own Home Meds) Active October 06, 2023 12:00am Start: 06-18-2022 [place] (No Kn own Home Meds) Active June [...] 4-6 HOURS as needed for pain 14 July 20, 2019 July 28, 2020 6:27pm [...] oral solution (8 sources) alpha-Adrenergic Agonist, Uncompetitive K-dizfsp-A-asparta te Receptor Antagonist, Sigma-1 Agonist Start: 2 [...] daily as needed for muscle spasm 9 3 May 02, 2017 12:00am May 04, 2017 [...] 800 MG PO Three times daily 15 5 May 02, 2017 12:00am May 06, 2017 [...] 26, 2019 11:58am July 28, 2020 6:27pm Jluttzha-Vjm-Rs-Fa () 1 mg Tablet (8 sources) Start: 12-31-2020 End: 07-04-2021 take 1 tablet by mouth once Ljxwcwvp-Kzq-La-Fa () 1 mg Tablet Discontinued TAB PO December 30, 2020 11:00pm July 04, 2021 9:48am Start: 12-31-2020 End: 07-04-2021 take 1 tablet by mouth once Iywttnrc-Rcm-Ke-F a () 1 mg Tablet Discontinued TAB [...] Start: 06-19-2020 take 1 capsule by mo [facility] twice daily Progesterone Micronized 100 MG Oral Capsule TAKE 1 CAPSULE Twice daily insert capsules vaginally Quantity: 30 Refills: 3 Bayron Mccarty MD Start : 19-Jun-2020 Active [facility] 8.6 mg oral tablet (1 source) take 4 tablets by mo [facility] every twenty-four hours Senna 8.6 MG [...] Date Documented Da te Episodic/Chronic Administrative/social admission (15 sources) Dietary counseling and [...] Test Name Value Interpretation Reference Range Facility BOX TESTon 05-22-2024 BOX TEST RESULT SEE SCANNED REPORT [facility] BOX TEST SENT OUT GROUP B STREP [facility] BOX1 [facility] BOX2 05/17/24 [facility] GROUP B STREP [facility] Strep B Culture (PCN Allergi c)on 05-17-2024 Strep B Culture (PCN Allergic) Strep B Only Cult No Group B Beta Streptococcus Isolated 3 Days PERFORMED BY: [place] [address] PATHOLOGIST [employer] APOLINAR POLANCO M.D. Normal [facility] Comment on above: Performed By: #### C USTB(PCN) #### [facility] [address] Urinalysis macro (dipstick) panel (U)on 05-17-2024 Bilirubin, UA Negative Negative - 4(70) +++ mg/dL [facility] Blood, UA Negative Negative - 50 Bradley/mcL [facility] Clarity, UA Clear [facility] Color, UA Jessica [facility] Glucose, UA Negative Negative - 1999(110) ++++ mg/dL [facility] Interpretation and review of laboratory results Abnormal [facility] Ketones, UA Negative Negative - 160(16) ++++ mg/dL [facility] Leukocytes, UA Positive Negative - 500+++ Gabby/mcL [facility] Comment on above: small Nitrite, UA Negative Negative - Positive [facility] pH, UA 6.5 5 - 9 [facility] Protein, UA Positive Negative - 1999(20) ++++ mg/dL [facility] Comment on above: 30 Spec Grav, UA 1.03 1 - 1.03 [facility] Urobilinogen, UA 0.2 0.2 - 12 mg/dL [facility] ALL THYROID STIM HORMONEon 1 07-04-2023 TSH Qn 2.422 m[IU]/L [facility] Urinalysis macro (dipstick) panel (U)on 05-03-2024 Bilirubin, UA Negative Negative - 4(70) +++ mg/dL [facility] Blood, UA Negative Negative - 50 Bradley/mcL [facility] Clarity, UA Clear [facility] Color, UA Yellow [facility] Glucose, UA Negative Negative - 1999(110) ++++ mg/dL [facility] Interpretation and review of laboratory results Abnormal [facility] Ketones, UA Negative Negative - 160(16) ++++ mg/dL [facility] Leukocytes, UA Positive Negative - 500+++ Gabby/mcL [facility] Comment on above: small Nitrite, UA Negative Negative - Positive [facility] pH, UA 6 5 - 9 [facility] Protein, UA Negative Negative - 1999(20) ++++ mg/dL [facility] Spec Grav, UA 1.03 1 - 1.03 [facility] Urobilinogen, UA 0.2 0.2 - 12 mg/dL [facility] Urinalysis macro (dipstick) panel (U)on 04-22-2024 Bilirubin, UA Negative Negative - 4(70) +++ mg/dL [facility] Blood, UA Negative Negative - 50 Bradley/mcL [facility] Clarity, UA Clear [facility] Color, UA Yellow [facility] Glucose, UA Negative Negative - 1999(110) ++++ mg/dL [facility] Interpretation and review of laboratory results Abnormal [facility] Ketones, UA Negative Negative - 160(16) ++++ mg/dL [facility] Leukocytes, UA Trace Negative - 500+++ Gabby/mcL [facility] Nitrite, UA Negative Negative - Positive [facility] pH, UA 6 5 - 9 [facility] Protein, UA Positive Negative - 1999(20) ++++ mg/dL [facility] Comment on above: 30 Spec Grav, UA 1.025 1 - 1.03 [facility] Urobilinogen, UA 1.0 0.2 - 12 mg/dL [facility] Urinalysis macro (dipstick) panel (U)on 04-06-2024 Bilirubin, UA Negative Negative - 4(70) +++ mg/dL [facility] Blood, UA Negative Negative - 50 Bradley/mcL [facility] Clarity, UA Clear [facility] Color, UA Yellow [facility] Glucose, UA Negative Negative - 1999(110) ++++ mg/dL [facility] Interpretation and review of laboratory results Abnormal [facility] Ketones, UA Negative Negative - 160(16) ++++ mg/dL [facility] Leukocytes, UA Positive Negative - 500+++ Gabby/mcL [facility] Comment on above: small Nitrite, UA Negative Negative - Positive [facility] pH, UA 7 5 - 9 [facility] Protein, UA Negative Negative - 1999(20) ++++ mg/dL [facility] Spec Grav, UA 1.02 1 - 1.03 [facility] Urobilinogen, UA 0.2 0.2 - 12 mg/dL [facility] Urinalysis macro (dipstick) panel (U)on 03-22-2024 Bilirubin, UA Positive Negative - 4(70) +++ mg/dL [facility] Blood, UA Negative Negative - 50 Bradley/mcL [facility] Clarity, UA Clear [facility] Color, UA Yellow [facility] Glucose, UA Negative Negative - 1999(110) ++++ mg/dL [facility] Interpretation and review of laboratory results Normal [facility] Ketones, UA Positive Negative - 160(16) ++++ mg/dL [facility] Leukocytes, UA Positive Negative - 500+++ Gabby/mcL [facility] Nitrite, UA Negative Negative - Positive [facility] pH, UA 7 5 - 9 [facility] Protein, UA Positive Negative - 1999(20) ++++ mg/dL [facility] Spec Grav, UA 1.025 1 - 1.03 [facility] Urobilinogen, UA 1.0 0.2 - 12 mg/dL [facility] ALL CBC WITH AUTO DIFFon BASOPHILS ABSOLUTE AUTO 0 [facility] Basophils/100 WBC (Bld) 0.5 % 0.2 - 2.0 % [facility] Eosinophils/100 WBC (Bld) 2.4 % 0.9 - 7.0 % [facility] Erythrocyte distribution width (RBC) [Ratio] 13.2 % 11.0 - 15.0 % [facility] Hematocrit (Bld) [Volume fraction] 33.2 % Low 36.0 - 48.0 % [facility] Hemoglobin (Bld) [Mass/Vol] 11.1 g/dL Low 12.0 - 16.0 g/dL [facility] IMMATURE GRANULOCYTES ABS AUTO 0.02 [facility] Immature granulocytes/100 WBC (Bld) 0.3 % 0.0 - 0.5 % [facility] Interpretation and review of laboratory results Abnormal [facility] LYMPHOCYTES ABSOLUTE AUTO 2.1 [facility] Lymphocytes/100 WBC (Bld) 32.5 % 20.5 - 60.0 % [facility] MCH (RBC) [Entitic mass] 30.5 pg 26.7 - 34.0 pg [facility] MCHC (RBC) [Mass/Vol] 33.4 g/dL 29.9 - 35.2 g/dL [facility] MCV (RBC) [Entitic vol] 91.2 fL 81.0 - 99.0 fL [facility] MONOCYTES ABSOLUTE AUTO 0.3 [facility] Monocytes/100 WBC (Bld) 4.6 % 1.7 - 12.0 % [facility] NEUTROPHILS ABSOLUTE AUTO 3.9 [facility] Neutrophils/100 WBC (Bld) 59.7 % 43.0 - 75.0 % [facility] Platelet mean volume (Bld) [Entitic vol] 9.3 fL Low 9.5 - 13.5 fL [facility] TBH EO # 0.2 [facility] TB PLT 342 [facility] TB RBC 3.64 Low [facility] WBC 6.6 [facility] BioFire Not Detectedon 03-05 BioFire Not Detected Not detected Normal Not Detecte [facility] Comment on above: Result Comment: This is a duplicate RP2.1 COVID (PCR) result to be used for statistical tracking purpose only. PERFORMED BY: [place] [address] PATHOLOGIST [employer] LION STANLEY M.D. Performed By: #### C BC, CMP, HCGQNT #### [address] COVID-19 Detected/Not Detect edOrdered By: Devika De La Garza on 03-05-2024 SARS-CoV-2 (COVID-19) RNA YANET+non-probe Ql (Nph) Not detected Not Detecte [facility] Comment on above: This is a duplicate RP2.1 COVID (PCR) result to be used for statistical tracking purpose only. ECG 12 lead ECGon 03-05-2024 ECG 12 lead ECG [facility] Main [place] [address] [place] [address] Electrocardiograph Report Signed Patient: Jaleesa Arrieta MR#: [id number] [birth year] : 1990 Acct:[id number] Age/Sex: 33 / F ADM Date: 03/05/24 Loc: ER Room: Type: [facility] ER Attending Dr: Ordering Provider: [...] Confirmed by DEVIKA DE LA GARZA DO ([id number]) on 03/06/2024 1:44:25 AM Referred By: Electronically Signed By: DEVIKA DE LA GARZA DO Transcribed By: MUS Signed By Devika De La Garza DO 03/06 0144 Normal [facility] Quick Strepon 03-05-2024 Quick Strep Streptococcus pyogen es Ag [Presence] in Throat by Rapid immunoassay Negative for Group A Strep Antigen Note 1 NOTE 2 Results are those of a screening test. NOTE 3 If clinically indicated please order a culture. NOTE 4 NOTE 5 Reference range = Negative PERFORMED BY: [place] [address] PATHOLOGIST [employer] LION STANLEY M.D. Normal [facility] Comment on above: Performed By: #### Q S, RESP PANEL UPP., BIOFIRECOVNOTDE #### [address] Respiratory (Upper) Panel, P CRon 03-05-2024 [...] A H3 Blank Space ------ PERFORMED BY: [place] [address] PATHOLOGIST [employer] LION STANLEY M.D. Normal [facility] Comment on above: Performed By: #### Q S, RESP PANEL UPP., BIOFIRECOVNOTDE #### [address] Respiratory pathogens DNA an d RNA panel - Nasopharynx by YANET with non-probe detectionOrdered By: Devika De La Garza on 03-05-2024 Respiratory pathogens DNA and RNA panel YANET+non-probe (Nph) Respiratory pathogens DNA and RNA panel - Nasopharynx by YANET with non-probe detection [facility] Respiratory pathogens DNA and RNA panel YANET+non-probe (Nph) [facility] Streptococcus pyogenes antig en detectionOrdered By: Devika De La Garza on 03-05-2024 S. pyogenes Ag Ql (Unsp spec) Streptococcus pyogenes antigen detection [facility] S. pyogenes Ag Ql (Unsp spec) [facility] XR chest 1V portableon 03-05 XR chest 1V portable [facility] Main [address] [address] XRay Report Signed Patient: Jaleesa Arrieta MR#: [id number] [birth year] : 1990 Acct:[id number] Age/Sex: 33 / F ADM Date: 03/05/24 Loc: ER Room: Type: [facility] ER Attending Dr: Copies to: Devika [...] Priscilla Cunningham M.D.03/05/2024 9:34 PM Dictation Location: [place] [address] Transcribed By: [facility] 03/05/242133 Dictated By: Priscilla Cunningham MD 03/05/242130 Signed By: 03/05/242133 Normal [facility] Quick Strepon 02-26-2024 Quick Strep Streptococcus pyogen es Ag [Presence] in Throat by Rapid immunoassay Negative for Group A Strep Antigen Note 1 NOTE 2 Results are those of a screening test. NOTE 3 If clinically indicated please order a culture. NOTE 4 NOTE 5 Reference range = Negative PERFORMED BY: [place] [id number] PATHOLOGIST [employer] LION STANLEY M.D. Normal [facility] Comment on above: Performed By: #### Q S #### [facility] [address] Streptococcus pyogenes antig en detectionOrdered By: Ck To on 02-26-2024 S. pyogenes Ag Ql (Unsp spec) Streptococcus pyogenes antigen detection [facility] S. pyogenes Ag Ql (Unsp spec) [facility] Urinalysis macro (dipstick) panel (U)on 02-23-2024 Bilirubin, UA Negative Negative - 4(70) +++ mg/dL [facility] Blood, UA Negative Negative - 50 Bradley/mcL [facility] Clarity, UA Clear [facility] Color, UA Yellow [facility] Glucose, UA Negative Negative - 1999(110) ++++ mg/dL [facility] Interpretation and review of laboratory results Abnormal [facility] Ketones, UA Negative Negative - 160(16) ++++ mg/dL [facility] Leukocytes, UA Positive Negative - 500+++ Gabby/mcL [facility] Comment on above: small Nitrite, UA Negative Negative - Positive [facility] pH, UA 7 5 - 9 [facility] Protein, UA Negative Negative - 1999(20) ++++ mg/dL [facility] Spec Grav, UA 1.02 1 - 1.03 [facility] Urobilinogen, UA 0.2 0.2 - 12 mg/dL [facility] ALL THYROID STIM HORMONEon 0 01-26-2024 TSH Qn 2.645 m[IU]/L [facility] Urinalysis macro (dipstick) panel (U)on 01-20-2024 Bilirubin, UA Negative Negative - 4(70) +++ mg/dL [facility] Blood, UA Negative Negative - 50 Bradley/mcL [facility] Clarity, UA Clear [facility] Color, UA Yellow [facility] Glucose, UA Negative Negative - 1999(110) ++++ mg/dL [facility] Interpretation and review of laboratory results Abnormal [facility] Ketones, UA Negative Negative - 160(16) ++++ mg/dL [facility] Leukocytes, UA Trace Negative - 500+++ Gabby/mcL [facility] Nitrite, UA Negative Negative - Positive [facility] pH, UA 6.5 5 - 9 [facility] Protein, UA Negative Negative - 2000(20) ++++ mg/dL [facility] Spec Grav, UA 1.020 1 - 1.03 [facility] Urobilinogen, UA 0.2 0.2 - 12 mg/dL [facility] Alanine aminotransferase [En zymatic activity/volume] in Serum or PlasmaOrdered By: Marychuy Kathleenore on 10-06-2023 ALT [Catalytic activity/Vol] 13 U/L Normal 7-52 [facility] Comment on above: Performed By: #### C BC, CMP, HCGQNT #### [facility] [address] Albumin [Mass/volume] in Ser um or Plasma by Bromocresol green (BCG) dye binding methoOrdered By: Marychuymargaux Kyle on 10-06-2023 Albumin BCG dye [Mass/Vol] 3.8 g/dL 3.5-5.7 [facility] Alkaline phosphatase [Enzyma tic activity/volume] in Serum or PlasmaOrdered By: Marychuy Jeronimoimore on 10-06-2023 ALP [Catalytic activity/Vol] 61 U/L Normal 34-104 [facility] Comment on above: Performed By: #### C BC, CMP, HCGQNT #### [facility] [address] [place] [address] Aspartate aminotransferase [ Enzymatic activity/volume] in Serum or PlasmaOrdered By: Marychuy Phaniimore on 10-06-2023 AST [Catalytic activity/Vol] 13 U/L Normal 13-39 [facility] Comment on above: Performed By: #### C BC, CMP, HCGQNT #### [facility] [address] [place] [address] Automated basophil %Ordered By: Marychuy Kyle on 10-06-2023 Basophils/100 WBC (Bld) 0.6 % Normal . [facility] Comment on above: Performed By: #### C BC, CMP, HCGQNT #### [facility] [address] [place] [address] Automated basophil countOrde red By: Marychuy Kyle on 10-06-2023 Basophils (Bld) [#/Vol] 0.0 10*3/uL Normal 0.0-0.2 [facility] Comment on above: Result Comment: PERF ORMED BY: [place] [address] PATHOLOGIST [employer] LION STANLEY M.D. Performed By: #### C BC, CMP, HCGQNT #### [address] Automated blood monocyte cou ntOrdered By: Marychuy Bullimore on 10-06-2023 Monocytes (Bld) [#/Vol] 0.5 10*3/uL Normal 0.0-0.8 [facility] Comment on above: Performed By: #### C BC, CMP, HCGQNT #### [address] Automated eosinophil %Ordere d By: Marychuy Bullimore on 10-06-2023 Eosinophils/100 WBC (Bld) 0.7 % Normal . [facility] Comment on above: Performed By: #### C BC, CMP, HCGQNT #### [address] Automated eosinophil countOr dered By: Marychuy Bullimore on 10-06-2023 Eosinophils (Bld) [#/Vol] 0.1 10*3/uL Normal 0.0-0.45 [facility] Comment on above: Performed By: #### C BC, CMP, HCGQNT #### [address] Automated epithelial cells c ount in urine sediment (number/area)Ordered By: Marychuy Bullimore on 10-06-2023 Epithelial cells Auto (Urine sed) [#/Area] 3-4 [HPF] 0-2 [facility] Automated monocyte %Ordered By: Marychuy Bullimore on 10-06-2023 Monocytes/100 WBC (Bld) 6.7 % Normal . [facility] Comment on above: Performed By: #### C BC, CMP, HCGQNT #### [address] Automated neutrophil %Ordere d By: Marychuy Bullimore on 10-06-2023 Neutrophils/100 WBC (Bld) 54.4 % Normal . [facility] Comment on above: Performed By: #### C BC, CMP, HCGQNT #### [facility] [address] Bacteria [Presence] in Urine by AutomatedOrdered By: Marychuy Bullimore on 10-06-2023 Bacteria Auto Ql (U) None seen [HPF] None Seen [facility] Bilirubin Test strip Ql (U)O rdered By: Marychuy Bullimore on 10-06-2023 Bilirubin Ql (U) Negative Negative [facility] Bilirubin.total [Mass/volume ] in Serum or PlasmaOrdered By: Marychuy Bullimore on 10-06-2023 Bilirubin [Mass/Vol] 0.2 mg/dL Low 0.3-1.0 [facility] Comment on above: Performed By: #### C BC, CMP, HCGQNT #### [facility] [address] [place] [address] [place] Calcium [Mass/volume] in Ser um or PlasmaOrdered By: Marychuy Bullimore on 10-06-2023 Calcium [Mass/Vol] 9.4 mg/dL Normal 8.6-10.[address] [facility] Comment on above: Performed By: #### C BC, CMP, HCGQNT #### [facility] [address] [place] [address] [place] Carbon dioxide, total [Moles /volume] in Serum or PlasmaOrdered By: Marychuy Bullimore on 10-06-2023 CO2 [Moles/Vol] 25.5 mmol/L Normal 21.0-31.0 [facility] Comment on above: Performed By: #### C BC, CMP, HCGQNT #### [facility] [address] [place] [address] [place] Chloride [Moles/volume] in S sondra or PlasmaOrdered By: Marychuy Bullimore on 10-06-2023 Chloride [Moles/Vol] 105 mmol/L Normal 98-107 [facility] Comment on above: Performed By: #### C BC, CMP, HCGQNT #### [address] Choriogonadotropin.beta subu nit [Units/volume] in Serum or PlasmaOrdered By: Marychuy Kyle on 10-06-2023 HCG.beta subunit Qn 2799.00 m[IU]/mL [facility] Comment on above: Approximate Approxim ate hCG Gestational Age Range (mIU/ml) (weeks)0.2-1 5-50 1-2 50-500 2-3 100-5,000 3-4 500-10,000 4-5 1,000-50,000 5-6 10,000-100,000 6-8 15,000-200,000 8-12 10,000-100,000 Color of Urine by AutoOrdere d By: Marychuy Kyle on 10-06-2023 Color (U) Yellow Normal Yellow [facility] Comment on above: Order Comment: NEED MORE SPECIMEN Name Collection Type:: Clean-Voided Midstream Performed By: #### A DDONUAPLUS #### [address] Complete Blood Count Auto Di ffon 10-06-2023 Mean Corpuscular HGB Conc 34.4 g/dL Normal 32.0-35.0 [facility] Comment on above: Performed By: #### C BC, CMP, HCGQNT #### [place] [address] [place] Monocytes/100 WBC (Bld) 17.37 % Normal 0.00-20.00 [facility] Comment on above: Performed By: #### C BC, CMP, HCGQNT #### [facility] [address] [place] [address] [place] NRBC% 0.2 /100{WBC} Normal 0-0.5 [facility] Comment on above: Performed By: #### C BC, CMP, HCGQNT #### [address] Comprehensive Metabolic Pane panchito 10-06-2023 Albumin [Mass/Vol] 3.8 g/dL Normal 3.5-5.7 [facility] Comment on above: Performed By: #### C BC, CMP, HCGQNT #### [address] Creatinine Clr Calc Pharmacy 180.48 Normal [facility] Comment on above: Performed By: #### C BC, CMP, HCGQNT #### [place] [address] [place] GFR/1.73 sq M.predicted MDRD (S/P/Bld) [Vol rate/Area] mL/min/{1.73_m2} Normal [facility] Comment on above: Performed By: #### C BC, CMP, HCGQNT #### [address] Creatinine [Mass/volume] in Serum or PlasmaOrdered By: Marychuy Kyle on 10-06-2023 Creatinine [Mass/Vol] 0.63 mg/dL Normal 0.60-1.20 [facility] Comment on above: Performed By: #### C BC, CMP, HCGQNT #### [place] [address] [place] Dipstick and Microscopicon 0 10-06-2023 Appearance (U) Clear Normal Clear [facility] Comment on above: Order Comment: NEED MORE SPECIMEN Name Collection Type:: Clean-Voided Midstream Performed By: #### A DDONUAPLUS #### [place] [address] [place] Bacteria,Urine None Seen Normal None Seen [facility] Comment on above: Order Comment: NEED MORE SPECIMEN Name Collection Type:: Clean-Voided Midstream Performed By: #### A DDONUAPLUS #### [place] [address] [place] Bilirubin,Urine Negative Normal Negative [facility] Comment on above: Order Comment: NEED MORE SPECIMEN Name Collection Type:: Clean-Voided Midstream Performed By: #### A DDONUAPLUS #### [address] Glucose Ql (U) Normal Normal Normal [facility] Comment on above: Order Comment: NEED MORE SPECIMEN Name Collection Type:: Clean-Voided Midstream Performed By: #### A DDONUAPLUS #### [address] [address] [place] Hyaline Casts,Urine 0-8 Normal 0-8 [facility] Comment on above: Order Comment: NEED MORE SPECIMEN Name Collection Type:: Clean-Voided Midstream Result Comment: PERF ORMED BY: [place] [address] PATHOLOGIST [employer] LION STANLEY M.D. Performed By: #### A DDONUAPLUS #### [place] [address] [place] Ketones Ql (U) Negative Normal Negative [facility] Comment on above: Order Comment: NEED MORE SPECIMEN Name Collection Type:: Clean-Voided Midstream Performed By: #### A DDONUAPLUS #### [place] [address] [place] Leukocyte esterase Test strip Ql (U) 1+ High Negative [facility] Comment on above: Order Comment: NEED MORE SPECIMEN Name Collection Type:: Clean-Voided Midstream Performed By: #### A DDONUAPLUS #### [place] [address] [place] Nitrite,Urine Negative Normal Negative [facility] Comment on above: Order Comment: NEED MORE SPECIMEN Name Collection Type:: Clean-Voided Midstream Performed By: #### A DDONUAPLUS #### [place] [id number] [place] Occult Blood,Urine Negative Normal Negative [facility] Comment on above: Order Comment: NEED MORE SPECIMEN Name Collection Type:: Clean-Voided Midstream Result Comment: PERF ORMED BY: [place] [address] PATHOLOGIST [employer] LION STANLEY M.D. Performed By: #### A DDONUAPLUS #### [place] [id number] [place] Protein,Urine Negative Normal Negative [facility] Comment on above: Order Comment: NEED MORE SPECIMEN Name Collection Type:: Clean-Voided Midstream Performed By: #### A DDONUAPLUS #### [place] [address] [place] RBC LM.HPF (Urine sed) [#/Area] 0 /[HPF] Normal 0-4 [facility] Comment on above: Order Comment: NEED MORE SPECIMEN Name Collection Type:: Clean-Voided Midstream Performed By: #### A DDONUAPLUS #### [address] Specificy [place],Urine 1.017 Normal 1.001-1.030 [facility] Comment on above: Order Comment: NEED MORE SPECIMEN Name Collection Type:: Clean-Voided Midstream Performed By: #### A DDONUAPLUS #### [address] Squamous Epithelial Cell,Urine 3-4 High 0-2 [facility] Comment on above: Order Comment: NEED MORE SPECIMEN Name Collection Type:: Clean-Voided Midstream Performed By: #### A DDONUAPLUS #### [address] Urobilinogen,Urine Normal Normal Normal [facility] Comment on above: Order Comment: NEED MORE SPECIMEN Name Collection Type:: Clean-Voided Midstream Performed By: #### A DDONUAPLUS #### [place] [address] [place] WBC,Urine 3-4 Normal 0-4 [facility] Comment on above: Order Comment: NEED MORE SPECIMEN Name Collection Type:: Clean-Voided Midstream Performed By: #### A DDONUAPLUS #### [place] [address] [place] Erythrocyte distribution wid th [Ratio] by Automated countOrdered By: Marychuy Kyle on 10-06-2023 Erythrocyte distribution width (RBC) [Ratio] 13.4 % Normal 11.9-15.3 [facility] Comment on above: Performed By: #### C BC, CMP, HCGQNT #### [facility] [address] [id number] [facility] Erythrocytes [#/area] in Uri ne sediment by Automated countOrdered By: Marychuy Kyle on 10-06-2023 RBC Auto (Urine sed) [#/Area] 0-1 [HPF] 0-4 [facility] Erythrocytes [#/volume] in B lood by Automated countOrdered By: Marychuy Wangore on 10-06-2023 RBC (Bld) [#/Vol] 4.08 10*6/uL Normal 3.60-5.00 [facility] Comment on above: Performed By: #### C BC, CMP, HCGQNT #### [address] Glucose [Mass/volume] in Ser um or PlasmaOrdered By: Marychuy Jeronimoimore on 10-06-2023 Glucose [Mass/Vol] 100 mg/dL Normal 70-[address] [facility] Comment on above: ADA recommended refe rence rangeRandom Glucose Reference Range is dependent on time and content of last meal. Glucose of more than 200 mg/dL in a nonstressed, ambulatory subject supports the diagnosis of Diabetes Mellitus. Result Comment: [place] om Glucose Reference Range is dependent on time and content of last meal. Glucose of more than 200 mg/dL in a nonstressed, ambulatory subject supports the diagnosis of Diabetes Mellitus. ADA recommended reference range Performed By: #### C BC, CMP, HCGQNT #### [facility] [address] [place], [place] [id number] [facility] HCG,Quantitativeon HCG,Quantitative 2799.00 m[iU]/mL Normal [facility] Comment on above: Result Comment: Appr oximate Approximate hCG Gestational Age Range (mIU/ml) (weeks) 0.2-1 5-50 1-2 50-500 2-3 100-5,000 3-4 500-10,000 4-5 1,000-50,000 5-6 10,000-100,000 6-8 15,000-200,000 8-12 10,000-100,000 PERFORMED BY: [address] [address] PATHOLOGIST [employer] LION STANLEY M.D. Performed By: #### C BC, CMP, HCGQNT #### [facility] [address] Hematocrit [Volume Fraction] of Blood by Automated countOrdered By: Marychuy Kyle on 10-06-2023 Hematocrit (Bld) [Volume fraction] 36.7 % Normal 34.0-46.4 [facility] Comment on above: Performed By: #### C BC, CMP, HCGQNT #### [facility] [address] Hemoglobin [Mass/volume] in BloodOrdered By: Marychuy Kyle on 10-06-2023 Hemoglobin (Bld) [Mass/Vol] 12.6 g/dL Normal 11.8-15.4 [facility] Comment on above: Performed By: #### C BC, CMP, HCGQNT #### [facility] [address] [place] [address] Ketones Auto test strip (U) [Mass/Vol]Ordered By: Marychuy Kyle on 10-06-2023 Ketones (U) [Mass/Vol] Negative Negative [facility] - UrinalysisOrder ed By: Marychuy Kyle on 10-06-2023 Hyaline casts LM Ql (Urine sed) 0-8 [LPF] 0-8 [facility] Leukocytes [#/area] in Urine sediment by Automated countOrdered By: Marychuy Kyle on 10-06-2023 WBC Auto (Urine sed) [#/Area] 3-4 [HPF] 0-4 [facility] Leukocytes [#/volume] correc inocencia for nucleated erythrocytes in Blood by Automated counOrdered By: Marychuy Kyle on 10-06-2023 WBC corrected for nucl RBC Auto (Bld) [#/Vol] 7.4 10*3/uL 3.8-11.6 [facility] Leukocytes [#/volume] in Blo od by Automated countOrdered By: Marychuy Kyle on 10-06-2023 WBC (Bld) [#/Vol] 7.4 10*3/uL Normal 3.8-11.[address] [facility] Comment on above: Performed By: #### C BC, CMP, HCGQNT #### [facility] [address] [place] [address] Lymphocytes [#/volume] in Bl ood by Automated countOrdered By: Marychuy Bullimore on 10-06-2023 Lymphocytes (Bld) [#/Vol] 2.8 10*3/uL Normal 1.00-4.8 [facility] Comment on above: Performed By: #### C BC, CMP, HCGQNT #### [address] Lymphocytes/100 leukocytes i n Blood by Automated countOrdered By: Marychuy Bullimore on 10-06-2023 Lymphocytes/100 WBC (Bld) 37.6 % Normal . [facility] Comment on above: Performed By: #### C BC, CMP, HCGQNT #### [facility] [address] [place] [address] MCH [Entitic mass] by Automa inocencia countOrdered By: Marychuy Bullimore on 10-06-2023 MCH (RBC) [Entitic mass] 31.0 pg Normal 24.7-34.3 [facility] Comment on above: Performed By: #### C BC, CMP, HCGQNT #### [address] MCHC Auto (RBC) [Mass/Vol]Or dered By: Marychuy Bullimore on 10-06-2023 MCHC (RBC) [Mass/Vol] 34.4 g/dL 32.0-35.0 [facility] MCV [Entitic volume] by Auto mated countOrdered By: Marychuy Phaniimore on 10-06-2023 MCV (RBC) [Entitic vol] 90.1 fL Normal 80-100 [facility] Comment on above: Performed By: #### C BC, CMP, HCGQNT #### [address] Monocyte distribution width [Entitic volume] in Blood by AutomatedOrdered By: Marychuy Bullimore on 10-06-2023 Monocyte distribution width Auto (Bld) [Entitic vol] 17.37 % 0.00-20.00 [facility] Neutrophils [#/volume] in Bl ood by Automated countOrdered By: Marychuy Kyle on 10-06-2023 Neutrophils (Bld) [#/Vol] 4.0 10*3/uL Normal 1.8-7.7 [facility] Comment on above: Performed By: #### C BC, CMP, HCGQNT #### [facility] [address] Nitrite Test strip Ql (U)Ord ered By: Marychuy Kyle on 10-06-2023 Nitrite Ql (U) Negative Negative [facility] No Panel InformationOrdered By: Marychuy Kyle on 10-06-2023 Estimated GFR (CKD-EPI) > 60.0 mL/Min [facility] Creatinine Clearance (Chem 180.48 [facility] Nucleated erythrocytes [Pres ence] in Blood by Automated countOrdered By: Marychuy Kyle on 10-06-2023 Nucleated RBC Auto Ql (Bld) 0.2 /100{WBC} 0-0.5 [facility] Platelet mean volume [Entiti c volume] in Blood by Automated countOrdered By: Marychuy Kyle on 10-06-2023 Platelet mean volume (Bld) [Entitic vol] 7.5 fL Normal 6.3-10.7 [facility] Comment on above: Performed By: #### C BC, CMP, HCGQNT #### [facility] [address] Platelets [#/volume] in Bloo d by Automated countOrdered By: Marychuy Kyle on 10-06-2023 Platelets (Bld) [#/Vol] 367 10*3/uL Normal 150-450 [facility] Comment on above: Performed By: #### C BC, CMP, HCGQNT #### [facility] [address] [place] [address] [place] Potassium [Moles/volume] in Serum or PlasmaOrdered By: Marychuy Kyle on 10-06-2023 Potassium [Moles/Vol] 4.1 mmol/L Normal 3.5-5.1 [facility] Comment on above: Performed By: #### C BC, CMP, HCGQNT #### [address] Protein Auto test strip (U) [Mass/Vol]Ordered By: Marychuy Bullimore on 10-06-2023 Protein (U) [Mass/Vol] Negative Negative [facility] Protein [Mass/volume] in Ser um or PlasmaOrdered By: Marychuy Bullimore on 10-06-2023 Protein [Mass/Vol] 7.4 g/dL Normal 6.4-8.[address] [facility] Comment on above: Performed By: #### C BC, CMP, HCGQNT #### [address] Serum globulin measurement b y calculation (mass/volume)Ordered By: Marychuy Bullimore on 10-06-2023 Globulin (S) [Mass/Vol] 3.6 g/dL [facility] Comment on above: Performed By: #### C BC, CMP, HCGQNT #### [address] Serum or plasma albumin/glob ulin mass ratioOrdered By: Marychuy Bullimore on 10-06-2023 Albumin/Globulin [Mass ratio] 1.1 {ratio} [facility] Comment on above: Performed By: #### C BC, CMP, HCGQNT #### [address] Serum or plasma anion gap de terminationOrdered By: Marychuy Bullimore on 10-06-2023 Anion gap [Moles/Vol] 12.6 mmol/L Normal 6.0-15.0 [facility] Comment on above: Performed By: #### C BC, CMP, HCGQNT #### [address] Sodium [Moles/volume] in Ser um or PlasmaOrdered By: Marychuy Bullimore on 05-27-2024 Sodium [Moles/Vol] 139 mmol/L Normal 136-[address] [facility] Comment on above: Performed By: #### C BC, CMP, HCGQNT #### [facility] [address] [place] [address] Specific gravity Auto test s trip (U) [Rel density]Ordered By: Marychuy Kyle on 10-06-2023 Specific gravity (U) [Rel density] 1.017 1.001-1.030 [facility] Urea nitrogen [Mass/volume] in Serum or PlasmaOrdered By: Marychuy Kyle on 10-06-2023 Urea nitrogen [Mass/Vol] 7 mg/dL Normal 7-25 [facility] Comment on above: Performed By: #### C BC, CMP, HCGQNT #### [address] Urine clarity by refractomet ry automatedOrdered By: Marychuy Kyle on 10-06-2023 Clarity Refractometry automated (U) Clear Clear [facility] Urine glucose measurement by automated test strip (mass/volume)Ordered By: Marychuy Kyle on 10-06-2023 Glucose Auto test strip (U) [Mass/Vol] Normal mg/dL Normal [facility] Urine hemoglobin detection b y automated test stripOrdered By: Marychuy Kyle on 10-06-2023 Hemoglobin Auto test strip Ql (U) Negative Negative [facility] Urine leukocyte esterase det ection by automated test stripOrdered By: Marychuy Kyle on 10-06-2023 Leukocyte esterase Auto test strip Ql (U) 1+ Negative [facility] Urine pH measurement by auto mated test stripOrdered By: Marychuy Kyle on 10-06-2023 pH (U) 7.0 [pH] Normal 5.0-9.0 [facility] Comment on above: Order Comment: NEED MORE SPECIMEN Name Collection Type:: Clean-Voided Midstream Performed By: #### A DDONUAPLUS #### [address] Urobilinogen Auto test strip (U) [Mass/Vol]Ordered By: Marychuy Kyle on 05-27-2024 Urobilinogen (U) [Mass/Vol] Normal mg/dL Normal [facility] Basia 09-11-2023 LIZ Telephone (MOGEN) -------- JALEESA ARRIETA ([id number]) 1990 F Date Time Provider Department 09/11/23 [...] our office back to schedule. Thanks Meme Yang As of Date: 09/11/2023 (Not on File) Date Reviewed: 08/20/2023 Reviewed by: Tonya Senior APRN.CNP - Fully Assessed Reason for Visit: Results [...] Status:Closed by TONYA SENIOR on 09/23/23 Normal [facility] NICOTINE AND METAB, URon URIN ANABASINE QUANT <5 Normal [facility] Comment on above: Order Comment: Speci men Type: URINE SPECIMEN Ordering Facility: [facility] Address: [address] [place] [address] Performed By: #### U NICOT #### [facility] CLIA [id number] [address] [place] [address] URIN COTININE QUANT <15 Normal [facility] Comment on above: Order Comment: Speci men Type: URINE SPECIMEN Ordering Facility: [facility] Address: [address] [place] [address] Performed By: #### U NICOT #### [facility] CLIA [id number] [address] [place] [address] URIN NICOTINE QUANT <15 Normal [facility] Comment on above: Order Comment: Speci men Type: URINE SPECIMEN Ordering Facility: [facility] Address: [address] [place] [address] Result Comment: INTE RPRETIVE INFORMATION: Nicotine and Metabolites, Urine, Quantitative Methodology: Quantitative Liquid Chromatography-Tandem Mass Spectrometry Positive cutoff: Nicotine 15 ng/mL Cotinine 15 ng/mL 2-ER-[id number] 50 ng/mL Anabasine 5 ng/mL For medical [...] developed and its performance characteristics determined by [facility]. It has not been cleared or approved by the [place] Food and Drug Administration. This test was performed in a CLIA certified laboratory and is intended for clinical purposes. Performed By: [facility] [address] [place] [address] Research Program Assistant: Rex Zuleta MD, PhD CLIA Number: [id number] Performed By: #### U NICOT #### [facility] CLIA [id number] [address] [place] [address] URINE 3 [place] COTININE <50 Normal [facility] Comment on above: Order Comment: Speci men Type: URINE SPECIMEN Ordering Facility: [facility] Address: [address] [place] [address] Performed By: #### U NICOT #### [facility] CLIA [id number] [address] [place] [address] TOXICOLOGY SCREEN, ROUTINE U RINEon 09-08-2023 Amphetamines Confirm (U) [Mass/Vol] Negative Normal Negative [facility] Comment on above: Order Comment: Speci men Type: URINE SPECIMEN Ordering Facility: [facility] Address: [address] [place] [address] Result Comment: Cuto ff threshold at 1000 ng/mL. Performed By: #### U TOX2 #### [facility] CLIA [id number] [address] [place] [address] [place] BARBITURATES, URINE Negative Normal Negative [facility] Comment on above: Order Comment: Speci men Type: URINE SPECIMEN Ordering Facility: [facility] Address: [address] [place] [address] Result Comment: Cuto ff threshold at 200 ng/mL. Performed By: #### U TOX2 #### [facility] CLIA [id number] [address] [place] [address] [place] BENZODIAZEPINES, UR Negative Normal Negative [facility] Comment on above: Order Comment: Speci men Type: URINE SPECIMEN Ordering Facility: [facility] Address: [address] [place] [address] Result Comment: Cuto ff threshold at 200 ng/mL. Performed By: #### U TOX2 #### [facility] CLIA [id number] [address] [place] [address] [place] Cannabinoids Screen Ql (U) Negative Normal Negative [facility] Comment on above: Order Comment: Speci men Type: URINE SPECIMEN Ordering Facility: [facility] Address: [address] [place] [address] Result Comment: Cuto ff threshold at 50 ng/mL. Performed By: #### U TOX2 #### [facility] CLIA [id number] [address] [place] [address] [place] Cocaine Ql (U) Negative Normal Negative [facility] Comment on above: Order Comment: Speci men Type: URINE SPECIMEN Ordering Facility: [facility] Address: [address] [place] [address] Result Comment: Cuto ff threshold at 300 ng/mL. Performed By: #### U TOX2 #### [facility] CLIA [id number] [address] [place] [address] [place] Ethanol (U) [Mass/Vol] <11 Normal <11 [facility] Comment on above: Order Comment: Speci men Type: URINE SPECIMEN Ordering Facility: [facility] Address: [address] [place] [address] Performed By: #### U TOX2 #### [facility] CLIA [id number] [address] [place] [address] [place] Opiates Screen Ql (U) Negative Normal Negative [facility] Comment on above: Order Comment: Speci men Type: URINE SPECIMEN Ordering Facility: [facility] Address: [address] [place] [address] Result Comment: Cuto ff threshold at 300 ng/mL. Performed By: #### U TOX2 #### [facility] CLIA [id number] [address] [place] [address] [place] oxyCODONE cutoff Screen (U) [Mass/Vol] Negative Normal Negative [facility] Comment on above: Order Comment: Speci men Type: URINE SPECIMEN Ordering Facility: [facility] Address: [address] [place] [address] Result Comment: Cuto ff threshold at 100 ng/mL. Performed By: #### U TOX2 #### [facility] CLIA [id number] [address] [place] [address] [place] Phencyclidine Ql (U) Negative Normal Negative [facility] Comment on above: Order Comment: Speci men Type: URINE SPECIMEN Ordering Facility: [facility] Address: [address] [place] [address] Result Comment: Cuto ff threshold at 25 ng/mL. Performed By: #### U TOX2 #### [facility] CLIA [id number] [address] [place] [address] [place] 25(OH)D3 SerPl-mCncon 2023 25-hydroxyvitamin D3 [Mass/Vol] 11.9 ng/mL Low 31.0-80.0 [facility] Comment on above: Order Comment: Speci men Type: BLOOD SPECIMEN Ordering Facility: [facility] Address: [address] [place] [address] Performed By: #### 2 276-4, 2132-01, 2283-12 #### [facility] CLIA [id number] [address] [place] [address] [place] CBC W Auto Differential pane l (Bld)on 09-05-2023 Basophils (Bld) [#/Vol] 10*3/uL Normal <0.11 [facility] Comment on above: Order Comment: Speci men Type: BLOOD SPECIMEN Ordering Facility: [facility] Address: [address] [place] [address] Performed By: #### 2 276-4, 2132-01, 2283-12 #### [facility] CLIA [id number] [address] [place] [address] [place] Basophils/100 WBC (Bld) 0.3 % Normal [facility] Comment on above: Order Comment: Speci men Type: BLOOD SPECIMEN Ordering Facility: [facility] Address: [address] [place] [address] Performed By: #### 2 276-4, 2132-01, 2283-12 #### [facility] CLIA [id number] [address] [place] [address] [place] Differential cell count method Nom (Bld) Auto Normal [facility] Comment on above: Order Comment: Speci men Type: BLOOD SPECIMEN Ordering Facility: [facility] Address: [address] [place] [address] Performed By: #### 2 276-4, 2132-01, 2283-12 #### [facility] CLIA [id number] [address] [place] [address] [place] Eosinophils (Bld) [#/Vol] 0.09 10*3/uL Normal <0.46 [facility] Comment on above: Order Comment: Speci men Type: BLOOD SPECIMEN Ordering Facility: [facility] Address: [address] [place] [address] Performed By: #### 2 276-4, 2132-01, 2283-12 #### [facility] CLIA [id number] [address] [place] [address] [place] Eosinophils/100 WBC (Bld) 1.3 % Normal [facility] Comment on above: Order Comment: Speci men Type: BLOOD SPECIMEN Ordering Facility: [facility] Address: [address] [place] [address] Performed By: #### 2 276-4, 2132-01, 2283-12 #### [facility] CLIA [id number] [address] [place] [address] [place] Erythrocyte distribution width (RBC) [Ratio] 12.6 % Normal 11.5-15.0 [facility] Comment on above: Order Comment: Speci men Type: BLOOD SPECIMEN Ordering Facility: [facility] Address: [address] [place] [address] Performed By: #### 2 276-4, 2132-01, 2283-12 #### [facility] CLIA [id number] [address] [place] [address] [place] Hematocrit (Bld) [Volume fraction] 38.0 % Normal 36.0-46.0 [facility] Comment on above: Order Comment: Speci men Type: BLOOD SPECIMEN Ordering Facility: [facility] Address: [address] [place] [address] Performed By: #### 2 276-4, 2132-01, 2283-12 #### [facility] CLIA [id number] [address] [place] [address] [place] Hemoglobin (Bld) [Mass/Vol] 12.8 g/dL Normal 11.5-15.5 [facility] Comment on above: Order Comment: Speci men Type: BLOOD SPECIMEN Ordering Facility: [facility] Address: [address] [place] [address] Performed By: #### 2 276-4, 2132-01, 2283-12 #### [facility] CLIA [id number] [address] [place] [address] [place] Immature granulocytes (Bld) [#/Vol] 10*3/uL Normal <0.10 [facility] Comment on above: Order Comment: Speci men Type: BLOOD SPECIMEN Ordering Facility: [facility] Address: [address] [place] [address] Performed By: #### 2 276-4, 2132-01, 2283-12 #### [facility] CLIA [id number] [address] [place] [address] [place] Immature granulocytes/100 WBC (Bld) 0.1 % Normal [facility] Comment on above: Order Comment: Speci men Type: BLOOD SPECIMEN Ordering Facility: [facility] Address: [address] [place] [address] Performed By: #### 2 276-4, 2132-01, 2283-12 #### [facility] CLIA [id number] [address] [place] [address] [place] Lymphocytes (Bld) [#/Vol] 3.49 10*3/uL Normal 1.00-4.00 [facility] Comment on above: Order Comment: Speci men Type: BLOOD SPECIMEN Ordering Facility: [facility] Address: [address] [place] [address] Performed By: #### 2 276-4, 2132-01, 2283-12 #### [facility] CLIA [id number] [address] [place] [address] [place] Lymphocytes/100 WBC (Bld) 48.6 % Normal [facility] Comment on above: Order Comment: Speci men Type: BLOOD SPECIMEN Ordering Facility: [facility] Address: [address] [place] [address] Performed By: #### 2 276-4, 2132-01, 2283-12 #### [facility] CLIA [id number] [address] [place] [address] [place] MCH (RBC) [Entitic mass] 30.0 pg Normal 26.0-34.0 [facility] Comment on above: Order Comment: Speci men Type: BLOOD SPECIMEN Ordering Facility: [facility] Address: [address] [place] [address] Performed By: #### 2 276-4, 2132-01, 2283-12 #### [facility] CLIA [id number] [address] [place] [address] [place] MCHC (RBC) [Mass/Vol] 33.7 g/dL Normal 30.5-36.0 [facility] Comment on above: Order Comment: Speci men Type: BLOOD SPECIMEN Ordering Facility: [facility] Address: [address] [place] [address] Performed By: #### 2 276-4, 2132-01, 2283-12 #### [facility] CLIA [id number] [address] [place] [address] [place] MCV (RBC) [Entitic vol] 89.2 fL Normal 80.0-100.0 [facility] Comment on above: Order Comment: Speci men Type: BLOOD SPECIMEN Ordering Facility: [facility] Address: [address] [place] [address] Performed By: #### 2 276-4, 2132-01, 2283-12 #### [facility] CLIA [id number] [address] [place] [address] [place] Monocytes (Bld) [#/Vol] 0.48 10*3/uL Normal <0.87 [facility] Comment on above: Order Comment: Speci men Type: BLOOD SPECIMEN Ordering Facility: [facility] Address: [address] [place] [address] Performed By: #### 2 276-4, 2132-01, 2283-12 #### [facility] CLIA [id number] [address] [place] [address] [place] Monocytes/100 WBC (Bld) 6.7 % Normal [facility] Comment on above: Order Comment: Speci men Type: BLOOD SPECIMEN Ordering Facility: [facility] Address: [address] [place] [address] Performed By: #### 2 276-4, 9, 2283-12 #### [facility] CLIA [id number] [address] [place] [address] [place] Neutrophils (Bld) [#/Vol] 3.09 10*3/uL Normal 1.45-7.50 [facility] Comment on above: Order Comment: Speci men Type: BLOOD SPECIMEN Ordering Facility: [facility] Address: [address] [place] [address] Performed By: #### 2 276-4, 2132-01, 2283-12 #### [facility] CLIA [id number] [address] [place] [address] [place] Neutrophils/100 WBC (Bld) 43.0 % Normal [facility] Comment on above: Order Comment: Speci men Type: BLOOD SPECIMEN Ordering Facility: [facility] Address: [address] [place] [address] Performed By: #### 2 276-4, 2132-01, 2283-12 #### [facility] CLIA [id number] [address] [place] [address] [place] Nucleated RBC (Bld) [#/Vol] 10*3/uL Normal <0.01 [facility] Comment on above: Order Comment: Speci men Type: BLOOD SPECIMEN Ordering Facility: [facility] Address: [address] [place] [address] Performed By: #### 2 276-4, 2132-01, 2283-12 #### [facility] CLIA [id number] [address] [place] [address] [place] Nucleated RBC/100 WBC (Bld) [Ratio] 0.0 /100 WBC Normal [facility] Comment on above: Order Comment: Speci men Type: BLOOD SPECIMEN Ordering Facility: [facility] Address: [address] [place] [address] Performed By: #### 2 276-4, 2132-01, 2283-12 #### [facility] CLIA [id number] [address] [place] [address] [place] Platelet mean volume (Bld) [Entitic vol] 9.2 fL Normal 9.0-12.7 [facility] Comment on above: Order Comment: Speci men Type: BLOOD SPECIMEN Ordering Facility: [facility] Address: [address] [place] [address] Performed By: #### 2 276-4, 2132-01, 2283-12 #### [facility] CLIA [id number] [address] [place] [address] [place] Platelets (Bld) [#/Vol] 361 10*3/uL Normal 150-400 [facility] Comment on above: Order Comment: Speci men Type: BLOOD SPECIMEN Ordering Facility: [facility] Address: [address] [place] [address] Performed By: #### 2 276-4, 2132-01, 2283-12 #### [facility] CLIA [id number] [address] [place] [address] [place] RBC (Bld) [#/Vol] 4.26 10*6/uL Normal 3.90-5.20 [facility] Comment on above: Order Comment: Speci men Type: BLOOD SPECIMEN Ordering Facility: [facility] Address: [address] [place] [address] Performed By: #### 2 276-4, 2132-01, 2283-12 #### [facility] CLIA [id number] [address] [place] [address] [place] WBC (Bld) [#/Vol] 7.18 10*3/uL Normal 3.70-11.00 [facility] Comment on above: Order Comment: Speci men Type: BLOOD SPECIMEN Ordering Facility: [facility] Address: [address] [place] [address] Performed By: #### 2 276-4, 2132-9, 2284-8 #### [facility] CLIA [id number] [address] [place] [address] [place] [address] [place] Comprehensive metabolic 2000 panelon 09-05-2023 Albumin [Mass/Vol] 4.0 g/dL Normal 3.9-4.9 [facility] Comment on above: Order Comment: Speci men Type: BLOOD SPECIMEN Ordering Facility: [facility] Address: [address] [place] [address] Performed By: #### 2 4323-8 #### [facility] CLIA [id number] [address] [place] [address] ALP [Catalytic activity/Vol] 91 U/L Normal 34-123 [facility] Comment on above: Order Comment: Speci men Type: BLOOD SPECIMEN Ordering Facility: [facility] Address: [address] [place] [address] Performed By: #### 2 4323-8 #### [facility] CLIA [id number] [address] [place] [address] ALT [Catalytic activity/Vol] 15 U/L Normal 7-38 [facility] Comment on above: Order Comment: Speci men Type: BLOOD SPECIMEN Ordering Facility: [facility] Address: [address] [place] [address] Performed By: #### 2 4323-8 #### [facility] CLIA [id number] [address] [place] [address]48 Anion gap [Moles/Vol] 10 mmol/L Normal 9-18 [facility] Comment on above: Order Comment: Speci men Type: BLOOD SPECIMEN Ordering Facility: [facility] Address: [address] [place] [address] Performed By: #### 2 4323-8 #### [facility] CLIA [id number] [address] [place] [address] AST [Catalytic activity/Vol] 13 U/L Normal 13-35 [facility] Comment on above: Order Comment: Speci men Type: BLOOD SPECIMEN Ordering Facility: [facility] Address: [address] [place] [address] Performed By: #### 2 4323-8 #### [facility] CLIA [id number] [address] [place] [address] Bilirubin [Mass/Vol] 0.3 mg/dL Normal 0.2-1.3 [facility] Comment on above: Order Comment: Speci men Type: BLOOD SPECIMEN Ordering Facility: [facility] Address: [address] [place] [address] Performed By: #### 2 4323-8 #### [facility] CLIA [id number] [address] [place] [address]45 Calcium [Mass/Vol] 9.5 mg/dL Normal 8.5-10.2 [facility] Comment on above: Order Comment: Speci men Type: BLOOD SPECIMEN Ordering Facility: [facility] Address: [address] [place] [address] Performed By: #### 2 4323-8 #### [facility] CLIA [id number] [address] [place] [address] 33099 Chloride [Moles/Vol] 106 mmol/L High 97-105 [facility] Comment on above: Order Comment: Speci men Type: BLOOD SPECIMEN Ordering Facility: [facility] Address: [address] [place] [address] Performed By: #### 2 4323-8 #### [facility] CLIA [id number] [address] [place] [address] 00621 CO2 [Moles/Vol] 26 mmol/L Normal 22-30 [facility] Comment on above: Order Comment: Speci men Type: BLOOD SPECIMEN Ordering Facility: [facility] Address: [address] [place] [address] Performed By: #### 2 4323-8 #### [facility] CLIA [id number] [address] [place] [address] Creatinine [Mass/Vol] 0.75 mg/dL Normal 0.58-0.96 [facility] Comment on above: Order Comment: Speci men Type: BLOOD SPECIMEN Ordering Facility: [facility] Address: [address] [id number] Performed By: #### 2 4323-8 #### [facility] CLIA [id number] [address] [place] [address] Creatinine and Glomerular filtration rate.predicted panel (S/P/Bld) 109 mL/min/1.73m??? Normal >=60 [facility] Comment on above: Order Comment: Speci men Type: BLOOD SPECIMEN Ordering Facility: [facility] Address: [address] [place] [address] Result Comment: Stephani mated Glomerular Filtration Rate [...] GFR. Performed By: #### 2 4323-8 #### [facility] CLIA [id number] [address] [place] [address] 18153 Glucose [Mass/Vol] 104 mg/dL High 74-99 [facility] Comment on above: Order Comment: Speci men Type: BLOOD SPECIMEN Ordering Facility: [facility] Address: [address] [id number] Result Comment: The [place] Diabetes Association (ADA) provides guidance for cutoff [...] Standards of Medical Care in Diabetes 2016, [place] Diabetes Association. Diabetes Care. 2016.39(Suppl 1). Performed By: #### 2 4323-8 #### [facility] CLIA [id number] [address] [place] [address] Potassium [Moles/Vol] 4.2 mmol/L Normal 3.7-5.1 [facility] Comment on above: Order Comment: Speci men Type: BLOOD SPECIMEN Ordering Facility: [facility] Address: [address] [place] [address] Performed By: #### 2 4323-8 #### [facility] CLIA [id number] [address] [place] [address] Protein [Mass/Vol] 7.4 g/dL Normal 6.3-8.0 [facility] Comment on above: Order Comment: Speci men Type: BLOOD SPECIMEN Ordering Facility: [facility] Address: [address] [place] [address] Performed By: #### 2 4323-8 #### [facility] CLIA [id number] [address] [place] [address] Sodium [Moles/Vol] 142 mmol/L Normal 136-144 [facility] Comment on above: Order Comment: Speci men Type: BLOOD SPECIMEN Ordering Facility: [facility] Address: [address] [place] [address] Performed By: #### 2 4323-8 #### [facility] CLIA [id number] [address] [place] [address] 60034 Urea nitrogen [Mass/Vol] 12 mg/dL Normal 7-21 [facility] Comment on above: Order Comment: Speci men Type: BLOOD SPECIMEN Ordering Facility: [facility] Address: [address] [place] [address] Performed By: #### 2 4323-8 #### [facility] CLIA [id number] [address] [place], [place] [address] Ferritin SerPl-mCncon 2023 Ferritin [Mass/Vol] 86.7 ng/mL Normal 14.7-205.1 [facility] Comment on above: Order Comment: Laury bradshaw Type: BLOOD SPECIMEN Ordering Facility: [facility] Address: [address] [place] [address] Performed By: #### 2 276-4, 9, 8 #### [facility] CLIA [id number] [address] [place] [address] [place] Folate SerPl-mCncon 09-05-19 Folate [Mass/Vol] 12.0 ng/mL Normal >4.7 [facility] Comment on above: Order Comment: Laury bradshaw Type: BLOOD SPECIMEN Ordering Facility: [facility] Address: [address] [place] [address] Performed By: #### 2 276-4, 2132-01, 2283-12 #### [facility] CLIA [id number] [address] [place] [address] [place] H. pylori IgG IA Qlon 2023 H. PYLORI IGG, QUAL Negative Normal Negative [facility] Comment on above: Order Comment: Laury bradshaw Type: BLOOD SPECIMEN Ordering Facility: [facility] Address: [address] [place] [address] Result Comment: Cash ot exclude H. pylori infection if the specimen collected 3-4 weeks after onset of symptoms. Performed By: #### 2 276-4, 9, 2283-12 #### [facility] CLIA [id number] [address] [place] [address] [place] HbA1c (Bld)on 09-05-2023 Average glucose Estimated from glycated hemoglobin (Bld) [Mass/Vol] 108 mg/dL Normal [facility] Comment on above: Order Comment: Speci men Type: BLOOD SPECIMEN Ordering Facility: [facility] Address: [address] [place] [address] Result Comment: eAG: (Estimated average glucose) is a calculated value from HgbA1c and is operations support representative of the average blood glucose level in the last 2-3 month period. Performed By: #### 5 5454-3 #### [facility] CLIA [id number] [address] [place] [address] [place] HbA1c (Bld) [Mass fraction] 5.4 % Normal 4.3-5.6 [facility] Comment on above: Order Comment: Laury bradshaw Type: BLOOD SPECIMEN Ordering Facility: [facility] Address: [address] [place] [address] Result Comment: [place] Diabetes Association guidelines indicate that patients with HgbA1c in the range 5.7-6.4% are at increased risk for development of diabetes, and intervention by lifestyle modification may be beneficial. HgbA1c greater or equal to 6.5% is considered diagnostic of diabetes. Performed By: #### 5 5454-3 #### [facility] CLIA [id number] [address] [place] [address] [place] Iron and Iron binding capaci ty panelon 09-05-2023 Iron [Mass/Vol] 94 ug/dL Normal 41-186 [facility] Comment on above: Order Comment: Laury bradshaw Type: BLOOD SPECIMEN Ordering Facility: [facility] Address: [address] [place] [address] Performed By: #### 5 0190-8, 3016-3, 87019-7 #### [facility] CLIA [id number] [address] [place] [address] [place] #### 22532-2 #### [facility] CLIA [id number] [address] [place] [address] [place] [facility] CLIA [id number] [address] [place] [address] Iron binding capacity [Mass/Vol] 310 ug/dL Normal 232-386 [facility] Comment on above: Order Comment: Speci men Type: BLOOD SPECIMEN Ordering Facility: [facility] Address: [address] [place] [address] Performed By: #### 5 0190-8, 3016-3, 50822-4 #### [facility] CLIA [id number] [address] [place] [address] [place] #### 71984-5 #### [facility] CLIA [id number] [address] [place] [address] LAB CLIA [id number] [address] [place] [address] Iron/TIBC [Molar ratio] 30.3 % Normal 15.0-57.0 [facility] Comment on above: Order Comment: Speci men Type: BLOOD SPECIMEN Ordering Facility: [facility] Address: [address] [place] [address] Performed By: #### 5 0190-8, 3016-3, 73898-2 #### [facility] CLIA [id number] [address] [place] [address] [place] #### 58860-8 #### [facility] CLIA [id number] [address] [place] [address] OF [facility] CLIA [id number] [address] [place] [address]87 Lipid 1996 panelon 4 Cholesterol [Mass/Vol] 179 mg/dL Normal <200 [facility] Comment on above: Order Comment: Speci men Type: BLOOD SPECIMEN Ordering Facility: [facility] Address: [address] [place] [address] Result Comment: <200 mg/dL, Desirable 200-239 mg/dL, Borderline high >239 mg/dL, High Performed By: #### 2 276-4, 2132-9, 2284-8 #### [facility] CLIA [id number] [address] [place] [address] [place] Cholesterol in HDL [Mass/Vol] 45 mg/dL Normal >39 [facility] Comment on above: Order Comment: Laury augustine Type: BLOOD SPECIMEN Ordering Facility: [facility] Address: [address] [place] [address] Result Comment: 40-5 9 mg/dL, Acceptable >59 mg/dL, High: Negative risk factor for coronary heart disease <40 mg/dL, Low: Positive risk factor for coronary heart disease Performed By: #### 2 276-4, 2132-01, 2283-12 #### [facility] CLIA [id number] [address] [place] [address] [place] Cholesterol in LDL [Mass/Vol] 119 mg/dL High <100 [facility] Comment on above: Order Comment: Laury bradshaw Type: BLOOD SPECIMEN Ordering Facility: [facility] Address: [address] [place] [address] Result Comment: <100 mg/dL, Optimal 100-129 mg/dL, Near optimal/above optimal 130-159 mg/dL, Borderline high 160-189 mg/dL, High >189 mg/dL, Very high Secondary prevention optimal LDL Cholesterol levels are recommended to be < 70 mg/dL Performed By: #### 2 276-4, 9, 2283-12 #### [facility] CLIA [id number] [address] [place] [address] [place] Cholesterol in LDL/Cholesterol in HDL [Mass ratio] 2.64 {ratio} High <2.54 [facility] Comment on above: Order Comment: Abbimurray bradshaw Type: BLOOD SPECIMEN Ordering Facility: [facility] Address: [address] [place] [address] Result Comment: Belinda degroot: 1. National Cholesterol Education Program ATP III Guideline At-A-Glance Quick Desk Reference: National Heart, Lung, and Blood [place]. National Institutes of Health. 2001: NIH Publication No. 01-3305. 2. An International Atherosclerosis Society position paper: global recommendations for the management of dyslipidemia: executive summary, Atherosclerosis. 2014: 232(2):410-413. Performed By: #### 2 276-4, 2132-01, 2283-12 #### [facility] CLIA [id number] [address] [place] [address] [place] Cholesterol in VLDL [Mass/Vol] 15 mg/dL Normal <30 [facility] Comment on above: Order Comment: Laury men Type: BLOOD SPECIMEN Ordering Facility: [facility] Address: [address] [place] [address] Performed By: #### 2 276-4, 2132-01, 2283-12 #### [facility] CLIA [id number] [address] [place] [address] [place] Cholesterol non HDL [Mass/Vol] 134 mg/dL High <130 [facility] Comment on above: Order Comment: Laury bradshaw Type: BLOOD SPECIMEN Ordering Facility: [facility] Address: [address] [place] [address] Result Comment: <130 mg/dL, Optimal 130-159 mg/dL, Near optimal/above optimal 160-189 mg/dL, Borderline high 190-219 mg/dL, High >219 mg/dL, Very high Secondary prevention optimal non HDL Cholesterol levels are recommended to be <100 mg/dL Performed By: #### 2 276-4, 2132-01, 2283-12 #### [facility] CLIA [id number] [address] [place] [address] [place] Cholesterol.total/Cho lesterol in HDL [Mass ratio] 3.98 {ratio} Normal <5.10 [facility] Comment on above: Order Comment: Laury bradshaw Type: BLOOD SPECIMEN Ordering Facility: [facility] Address: [address] [place] [address] Performed By: #### 2 276-4, 2132-01, 2283-12 #### [facility] CLIA [id number] [address] [place] [address] [place] FASTING TIME 12 hrs Normal [facility] Comment on above: Order Comment: Speci men Type: BLOOD SPECIMEN Ordering Facility: [facility] Address: [address] [place] [address] Performed By: #### 2 276-4, 9, 2283-12 #### [facility] CLIA [id number] [address] [place] [address] [place] Triglyceride [Mass/Vol] 74 mg/dL Normal <150 [facility] Comment on above: Order Comment: Speci men Type: BLOOD SPECIMEN Ordering Facility: [facility] Address: [address] [place] [address] Result Comment: <150 mg/dL, Normal 150-199 mg/dL, Borderline high 200-499 mg/dL, High >499 mg/dL, Very high Performed By: #### 2 276-4, 2132-01, 2283-12 #### [facility] CLIA [id number] [address] [place] [address] [place] NT-proBNP SerPl-mCncon 09-04 Natriuretic peptide.B prohormone N-Terminal [Mass/Vol] 48 pg/mL Normal <125 [facility] Comment on above: Order Comment: Abbii augustine Type: BLOOD SPECIMEN Ordering Facility: [facility] Address: [address] [place] [address] Performed By: #### 2 276-4, 2132-01, 2283-12 #### [facility] CLIA [id number] [address] [place] [address] [place] TSH SerPl-aCncon 09-05-2023 TSH Qn 6.440 m[IU]/L High 0.270-4.200 [facility] Comment on above: Order Comment: Abbii men Type: BLOOD SPECIMEN Ordering Facility: [facility] Address: [address] [place] [address] Result Comment: If t he patient is , TSH reference range varies by gestational period: First Trimester (weeks 9-12): 0.180-2.990 mIU/L Second Trimester: 0.110-3.980 mIU/L Third Trimester: 0.480-4.710 mIU/L Seth Crews et al. A Practical Approach for the Verifications and Determination of Site- and Trimester-Specific Reference Intervals for Thyroid Function tests in . Thyroid, 2019:29:3:412-420. Zhang Ybarra, et al. 2017 Guidelines of the [place] Thyroid Association for the Diagnosis and Management of Thyroid Disease during and the . Thyroid, 2017:27:3:315-389. Performed By: #### 2 276-4, 2132-9, 2284-8 #### [facility] CLIA [id number] [address] [place] [address] [place] VITAMIN B1 (THIAMINE), WHOLE BLOODon 09-05-2023 Thiamine (Bld) [Moles/Vol] 179.2 nmol/L Normal 84.3-213.3 [facility] Comment on above: Order Comment: Speci men Type: BLOOD SPECIMEN Ordering Facility: [facility] Address: [address] [place] [address] Result Comment: This assay measures the concentration of thiamine diphosphate (TDP), the primary active form of vitamin B1. Approximately 90 percent of vitamin B1 present in whole blood is TDP. Thiamine and thiamine monophosphate, which comprise the remaining 10 percent, are not measured. This test was developed and its performance characteristics determined by [facility]'s [facility] Pathology and Laboratory Medicine [place] ([facility]). It has not been cleared or approved by the FDA. -[facility] is regulated under CLIA as qualified to perform high-complexity testing. This test is used for clinical purposes. It should not be regarded as investigational or for research. Performed By: #### B 1WB #### [facility] CLIA [id number] [address] [place] [address] [place] Vit B12 SerPl-mCncon 024 Cobalamin (Vitamin B12) [Mass/Vol] 612 pg/mL Normal 232-1245 [facility] Comment on above: Order Comment: Speci men Type: BLOOD SPECIMEN Ordering Facility: [facility] Address: [address] [place] [address] Performed By: #### 2 276-4, 2132-9, 2284-8 #### [facility] CLIA [id number] [address] [place] [address] [place] [address] [place] Glucose - FINGER STICKon Glucose [Mass/Vol] 5.4 mg/dL [employer] Other PAP ACOG PANEL 2: 30 to 65on 06-10-2022 . . Normal [facility] Comment on above: Result Comment: Perf ormed at: WB Performed By: #### [id number] #### [facility] [address] [place] [address] Dr. Sachin Coates Age Gdln ACOG Testing - Normal [facility] Comment on above: Performed By: #### [id number] #### [facility] [address] [address] [address] Sachin Coates DIAGNOSIS: Comment Normal [facility] Comment on above: Result Comment: NEGA TIVE FOR INTRAEPITHELIAL LESION OR MALIGNANCY. CELLULAR CHANGES ASSOCIATED WITH INFLAMMATION ARE PRESENT. THIS SPECIMEN WAS RESCREENED PART OF OUR SUPERVISOR RUBBER COVERING PROGRAM. Performed at: WB Performed By: #### [id number] #### [facility] [address] [place] [address] Dr. Sachin Coates HPV Aptima Negative Normal Negative [facility] Comment on above: Result Comment: This nucleic acid amplification test detects fourteen high-risk HPV types (16,18,31,33,35,39,45,51,52,56,58,59,66,68) without differentiation. Performed at: =G Performed By: #### [id number] #### [facility] [address] [address] [address] Sachin Coates HPV Genotype Reflex Comment [facility] Comment on above: Result Comment: Crit eria not met, HPV Genotype not performed. Performed at: WB Performed By: #### [id number] #### [facility] [address] [place] [address] Dr. Sachin Coates Methodology: Comment Normal [facility] Comment on above: Result Comment: This liquid based ThinPrep(R) pap test was screened with the use of an image guided system. Performed at: WB Performed By: #### [id number] #### [facility] [address] [place] [address] Dr. Sachin Coates Note: Comment Normal [facility] [...] Performed at: WB Performed By: #### [id number] #### [facility] [address] [place] [address] Dr. Sachin Coates Performed by: Comment Normal [facility] Comment on above: Result Comment: Peyton Beverly, Carding Doubler (ASCP) Performed at: WB Performed By: #### [id number] #### [facility] [address] [place] [address] Dr. Sachin Coates QC reviewed by: Comment Normal [facility] Comment on above: Result Comment: Cielo Cochran, Supervisory Carding Doubler (ASCP) Performed at: WB Performed By: #### [id number] #### [facility] [address] [place] [address] Dr. Sachin Coates Specimen adequacy: Comment Normal [facility] Comment on above: Result Comment: Sati sfactory for evaluation. Endocervical and/or squamous metaplastic cells (endocervical component) are present. Performed at: WB Performed By: #### [id number] #### [facility] [address] [place] [address] Dr. Sachin Coates COVID-19 SOFIAOrdered By: Dario To on 12-02-2021 SARS-CoV+SARS-CoV-2 (COVID-19) Ag IA.rapid Ql (Resp) Negative Negative [facility] Comment on above: This is a duplicate Zuleyma SARS Antigen (PAMELLA) result to be used for statistical tracking purpose only. No Panel InformationOrdered By: Ck To on 12-02-2021 SARS Antigen (LFIA) [facility] Chart Updateon 08-08-2020 Chart Update [...] Aug 08 2020 10:18AM EST (Author) Normal [facility] TRANSITION ASSISTANT - Procedure Visiton 0 07-10-2020 TRANSITION ASSISTANT - Procedure Visit Chief Complaint IUI Active [...] 2020 6:01PM EST (Author) Normal [facility] ESTRADIOLon 02-27-2021 ESTRADIOL 186 pg/mL Normal [facility] Comment on above: Result Comment: Estr adiol measurement is performed using the Shruthi J Carlos Access Sensitive Estradiol Immunoassay. Estradiol testing is performed using a different test methodology at [facility] than other [facility]. Direct result comparison should only be made within the same method. REF VALUES EARLY FOLLICULAR 22-115 MID FOLLICULAR 25-115 OVULATORY PEAK 32-517 MID LUTEAL 37-246 POSTMENOPAUSE <15- 25 MALE <15- 32 Performed By: #### G [facility] #### [facility] [address] [place] [address] Estradiol, Serumon E2 [Mass/Vol] 186 pg/mL MG-OBGYN-Ri sm an 310 IVF Work Phone: Comment on above: Estradiol measuremen t is performed using the Shruthi PromiseUP Access Sensitive Estradiol Immunoassay. Estradiol testing is performed using a different test methodology at [facility] than other [facility]. Direct result comparison should only be made within the same method.REF VALUESEARLY FOLLICULAR 22-115MID FOLLICULAR 25-115OVULATORY PEAK 32-517MID LUTEAL 37-246POSTMENOPAUSE <15- 25MALE <15- 32 LUTEINIZING HORMONEon 2020 LUTEINIZING HORMONE 9.5 IU/L Normal [facility] Comment on above: Result Comment: Lute inizing Hormone [LH] is performed using the Shruthi [place] Access Immunoassay. LH testing is performed using a different test methodology at [facility] than other [facility]. Direct result comparison should only be made within the same method. REF VALUES FOLLICULAR PHASE 1.5-10.0 MID-CYCLE 13.0-72.0 LUTEAL PHASE 0.5-13.0 MENOPAUSE 15.0-65.0 PREPUBERTY 0- 3.0 CHILDREN 0- 6.0 ADULT MALE 1.0- 9.0 Performed By: #### G [facility] #### [facility] [address] [place] [address] Luteinizing Hormone, Serumon 07-08-2020 Lutropin Qn 9.5 {IU/L} NA-IXIBT-Yykz an 310 IVF Work Phone: Comment on above: Luteinizing Hormone [LH] is performed using the Shruthi [place] Access Immunoassay. LH testing is performed using a different test methodology at [facility] than other [facility]. Direct result comparison should only be made within the same method.REF VALUESFOLLICULAR PHASE 1.5-10.0MID-CYCLE 13.0-72.0LUTEAL PHASE 0.5-13.0MENOPAUSE 15.0-65.0PREPUBERTY 0- 3.0CHILDREN 0- 6.0ADULT MALE 1.0- 9.0 TYPE + SCREENon 07-06-2020 ABO TYPE A Normal [facility] Comment on above: Performed By: #### T +S #### [facility] [address] [place] [address] RH TYPE Positive Normal [facility] Comment on above: Performed By: #### T +S #### [facility] [address] [place] [address] ESTRADIOLon 07-05-2020 ESTRADIOL 58 pg/mL Normal [facility] Comment on above: Result Comment: Estr adiol measurement is performed using the Shruthi [place] Access Sensitive Estradiol Immunoassay. Estradiol testing is performed using a different test methodology at [facility] than other [facility]. Direct result comparison should only be made within the same method. REF VALUES EARLY FOLLICULAR 22-115 MID FOLLICULAR 25-115 OVULATORY PEAK 32-517 MID LUTEAL 37-246 POSTMENOPAUSE <15- 25 MALE <15- 32 Performed By: #### G CCHA #### [facility] [address] [place] [address] Estradiol, Serumon E2 [Mass/Vol] 58 pg/mL MG-OBGYN-Ri an 310 IVF Work Phone: Comment on above: Estradiol measuremen t is performed using the Shruthi J Carlos Access Sensitive Estradiol Immunoassay. Estradiol testing is performed using a different test methodology at [facility] than other [facility]. 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 LH testing is performed using a different test methodology at [facility] than other [facility]. Direct result comparison should only be made within the same method. REF VALUES FOLLICULAR PHASE 1.5-10.0 MID-CYCLE 13.0-72.0 LUTEAL PHASE 0.5-13.0 MENOPAUSE 15.0-65.0 PREPUBERTY 0- 3.0 CHILDREN 0- 6.0 ADULT MALE 1.0- 9.0 Performed By: #### L H #### [facility] [address] [place] [address] Luteinizing Hormone, Serumon 07-05-2020 Lutropin Qn 9.2 {IU/L} RW-DSRQQ-Ilmv an 310 IVF Work Phone: Comment on above: Luteinizing Hormone [LH] is performed using the Shruthi PromiseUP Access Immunoassay. LH testing is performed using a different test methodology at [facility] than other [facility]. Direct result comparison should only be made within the same method.REF VALUESFOLLICULAR PHASE 1.5-10.0MID-CYCLE 13.0-72.0LUTEAL PHASE 0.5-13.0MENOPAUSE 15.0-65.0PREPUBERTY 0- 3.0CHILDREN 0- 6.0ADULT MALE 1.0- 9.0 TRANSITION ASSISTANT - Office Visiton TRANSITION ASSISTANT - Office Visit Diagnoses/Problems Assessed Morbid obesity [...] MD [facility] [phone] [facility] [phone] [place] 1 Amended By: Bayron Mccarty; Jun 19 [...] MD [facility] [phone] [facility] [phone] [place] Appointment Duration:. 25 minutes; greater than half of the time was spent on counseling. 1 Amended By: Bayron Mccarty; Jun 19 2020 10:16 AM ESTChief Complaint follow up History of Present Ciplotr3506/19/2020 9:30AM JALEESA ARRIETA , 30 year is contacted for an (audio-visual, or audio only) Telehealth visit. Today's visit was provided through telemedicine conferencing: Using [employer] platform. Consent: The concept of telemedicine? has [...] is a telehealth appointment Results/Data HCG, Beta [id number] 11:58AMBayron Mccarty Test NameResultFlagReference HCG, Beta Quantitative<2 [...] at [facility] than other [facility]. Direct result comparison should only be made within the same method. REF VALUES NON FEMALE <5 MALES <5 Progesterone, [id number] 11:58AMBayron Mccarty Test NameResultFlagReference Progesterone, Serum10.5 ng/mL REF VALUES MALE <0.3- 1.2 FOLLICULAR PHASE <0.3- 1.4 LUTEAL PHASE 3.3-25.6 MID-LUTEAL PHASE 4.4-28.0 POSTMENOPAUSAL <0.3- 0.7 FEMALES: 1ST TRIMESTER 11.2- 90.0 2ND TRIMESTER 25.6- 89.4 3RD TRIMESTER 48.4-422.5 . Patients receiving DHEA-S supplements may show false elevation of progesterone for results near 1.0 ng/mL. Contact laboratory at [phone] if alternative testing is needed. CMV IgG and IgM [id number] 11:58AMBayron Mccarty NameResultFlagReference CMV IgG AntibodyREACTIVEASee Below Reference Range: NONREACTIVE CMV IGM [id number] 11:58AMBayron Mccarty NameResultFlagReference CMV IGM AB<30.00 AU/mL REFERENCE RANGE: [...] testing in two or more weeks. Xray Mhriaibrviegsnbfykk72Nwm 2020 12:00AMBayron Mccarty [Mar 28, 2020 9:43AM Bayron Mccarty] Reason: Unspecified for Xray Hysterosalpingogram Test NameResultFlagReference Xray Hysterosalpingogram Please click on the link to view the study images Anti Mullerian [id number] 12:03PMBayron Mccarty Test NameResultFlagReference Anti Mullerian Hormone6.36 ng/mL For assays employing antibodies, the possibility exists for interference by heterophile antibodies in the samples.1 1.Oswald Crews. Interferences in Immunoassays - still a threat. Clin. Chem. 2000; 46: 4899-5481. This test was developed and its performance characteristics determined by [employer]. It has not been cleared or approved by the Food and Drug Administration. Reference Range: Females 26 - 30y: 1.03 - 11.10 Median 4.20 AMH concentrations of >= 1.06 ng/mL is correlated with a better response to ovarian stimulation, produced more retrievable oocytes and higher odds of live according to Michaeler et al. Fertility and Sterility. 2010: 94:7083-9947. The current AMH test method correlates with [...] exclude an AMH-secreting ovarian tumor. Rubella IgG [id number] 12:03PMBayron Mccarty Test NameResultFlagReference Rubella IgG AntibodyPOSITIVE [...] TSH WITH REFLEX TO FREE T4 IF [id number] 12:03PMBayron Mccarty Test NameResultFlagReference Thyroid Stimulating Hormone, Serum2.17 mIU/LSee Below Reference Range: 0.44 - 3.98 TSH testing is performed using different testing methodology at [facility] than at other [facility]. Direct result comparisons should only be made within the same method. Varicella Zoster IgG [id number] 12:03PMBayron Mccarty Test NameResultFlagReference Varicella Zoster IgG [...] altered results in serological assays. Vitamin D 25-Bojxkdr46Crv1409 12:03Bayron Silva Test NameResultFlagReference Vitamin D 25-Hydroxy, Level17 ng/mLA . DEFICIENCY: < 20 NG/ML INSUFFICIENCY: 20-29 NG/ML SUFFICIENCY: 30-100 NG/ML THIS ASSAY ACCURATELY QUANTIFIES THE SUM OF VITAMIN D3, 25-HYDROXY AND VIT D2,25-HYDROXY. { 17-Hydroxyprogesterone, Dpftf12Vpn8840 12:03Bayron Silva Test NameResultFlagReference 17-Hydroxyprogesterone, Serum33 ng/dL [...] Endocrinol Metab. 1991;73:674-686; J Clin Endocrinol Metab. 1989;69;3249-3237; J Clin Endocrinol Metab. 1994;78:226-270. Pediatr Res 1988;23:525-529. MedLinePlus (accessed 10/25/13). This test was developed and its analytical performance characteristics have been determined by [facility] [place], [place]. It has not been cleared or approved by the U.S. Food and Drug Administration. This assay has been validated pursuant to the CLIA regulations and is used for clinical purposes. DHEA Sulfate, [id number] 12:03PMBayron Mccarty Test NameResultFlagReference DHEA Sulfate, Uhtdi907 ug/dL65 - 395 MATURITY-BASED REFERENCE RANGES: PUBERTAL [...] laboratory for further information. Testosterone Free + [id number] 12:03PMBayron Mccarty Test NameResultFlagReference Testosterone, Total63 ng/dLH2-45 For additional information, please refer to http://education.Oxyntix/faq/ TotalTestosteroneLCMSMSF AQ165 (This link is being provided for informational/ educational purposes only.) This test was developed and its analytical performance characteristics have been determined by [facility] [place]. It has not been cleared or approved by the U.S. Food and Drug Administration. This assay has been validated pursuant to the CLIA regulations and is used for clinical purposes. Testosterone, Free Serum8.8 pg/mLH0.1-6.4 This test was developed and its analytical performance characteristics have been determined by [facility] [place], [place]. It has not been cleared or approved by the U.S. Food and Drug Administration. This assay has been validated pursuant to the CLIA regulations and is used for clinical purposes. Hemoglobin [id number] 12:03PMBayron Mccarty Test NameResultFlagReference Hemoglobin A1C, Level5.5 % Diagnosis of Diabetes-Adults Non-Diabetic: < or = 5.6% Increased risk for developing diabetes: 5.7-6.4% Diagnostic of diabetes: > or = 6.5% . Monitoring of Diabetes Age (y) Therapeutic Goal (%) Adults: >18 <7.0 Pediatrics: 13-18 <7.5 7-12 <8.0 0- 6 7.5-8.5 [place] [employer]. Diabetes Care 33(S1), May 2009. Estimated Average Brsmhqv715 MG/DL GC + Chlamydia By Amplified [id number] 12:03Bayron Silva Test NameResultFlagReference N.GONORRHEA,AMPLIFIEDNEG ATIVENegative SOURCE: Urine Chlamydia Trach, AmplifiedNEGATIVENegativ e Hepatitis B Surface [id number] 12:03PMBayron Mccarty Test NameResultFlagReference Hep.B Surface AgNONREACTIVESee Below Reference Range: NONREACTIVE Biotin interference may cause falsely decreased results. Patients taking a Biotin dose of up to 5 mg/day should refrain from taking Biotin for 24 hours before sample collection. Providers may contact their local laboratory for further information. Hepatitis C Antibody [id number] 12:03PMBayron Mccarty Test NameResultFlagReference Hepatitis C-AntibodyNONREACTIVESee Below Reference Range: NONREACTIVE Results from patients taking biotin supplements or receiving high-dose biotin therapy should be interpreted with caution due to possible interference with this test. Providers may contact their local laboratory for further information. HIV 1/2 ANTIGEN/ANTIBODY SCREEN WITH REFLEX TO [id number] 12:03PMFindleBayron mccarthy Test NameResultFlagReference HIV 1/2 AG/AB SCREENNONREACTIVESee Below Reference Range: NONREACTIVE HIV Ag/Ab screen is performed using the Siemens Varsity OpticsllGenasys HIV Ag/Ab Combo assay which detects the presence of HIV p24 antigen as well as antibodies to HIV-1 (Group M and O) and HIV-2. SYPHILIS SCREENING WITH [id number] 12:03PMBerryBayron mccarthy Test NameResultFlagReference SYPHILIS TOTAL ANTIBODYNONREACTIVESee Below SOURCE: Reference Range: NONREACTIVE No significant level of Treponema pallidum antibody detected. Repeat testing in 2 to 4 weeks may be considered if early infection or incubating syphilis infection is suspected. Signatures Electronically signed by : Bayron Mccarty MD; Jun 19 2020 10:16AM EST (Author) Normal [facility] CMV IGM ABon 04-20-2020 CMV IGM AB <30.[address] [facility] Comment on above: Result Comment: [...] weeks. Performed By: #### C MVM2 #### [facility] [address] [place] [address] CMV IGG AND IGM ABon 020 CMV IGG AB REACTIVE Abnormal NONREACTIVE [facility] Comment on above: Performed By: #### C MV2 #### [facility] [address] [place] [address] PROGESTERONEon 04-16-2020 PROGESTERONE 10.5 ng/mL Normal [facility] Comment on above: Result Comment: REF VALUES MALE <0.3- 1.2 FOLLICULAR PHASE <0.3- 1.4 LUTEAL PHASE 3.3-25.6 MID-LUTEAL PHASE 4.4-28.0 POSTMENOPAUSAL <0.3- 0.7 FEMALES: 1ST TRIMESTER 11.2- 90.0 2ND TRIMESTER 25.6- 89.4 3RD TRIMESTER 48.4-422.5 . Patients receiving DHEA-S supplements may show false elevation of progesterone for results near 1.0 ng/mL. Contact laboratory at [phone] if alternative testing is needed. Performed By: #### P BBOBY #### [facility] [address] [place] [address] HCG,BETA-QUANTITATIVEon HCG,BETA-QUANTITATIVE <[address] [facility] Comment on above: Result Comment: [...] HCG measurement is performed using the Shruthi [place]able[place] Access Immunoassay which detects intact HCG and free beta HCG subunit. This test is not indicated for use as a tumor marker. HCG testing is performed using a different test methodology at [facility] than other [facility]. Direct result comparison should only be made within the same method. REF VALUES NON FEMALE <5 MALES <5 Performed By: #### H CGQU #### [address] [id number] TRANSITION ASSISTANT - Office Visiton TRANSITION ASSISTANT - Office Visit Chief Complaint An interactive [...] test results. Roby JEWELL. History of Present Ohbdidx4604/14/2020 9:30AM JALEESAИРИНА ARRIETA , 30 year is contacted for an (audio-visual, or audio only) Telehealth visit. Today's visit was provided through telemedicine conferencing: Using [employer] platform. Consent: The concept of telemedicine? has [...] 2020 1:15:24 PM Vitals Vital Signs Recorded: 61Mga5553 09:08AM Height5 ft 6 in Xmghze025 lb BMI Msszludaia56.81 BSA Calculated2.34 [id number] Gravida1 Para0 Pain Scale0 Physical Exam This is a telehealth appointment Results/Data Anti Mullerian [id number] 12:03PMBayron Mccarty Test NameResultFlagReference Anti Mullerian Hormone6.36 ng/mL For assays employing antibodies, the possibility exists for interference by heterophile antibodies in the samples.1 1.Oswald Crews. Interferences in Immunoassays - still a threat. Clin. Chem. 2000; 46: 4189-8480. This test was developed and its performance characteristics determined by [employer]. It has not been cleared or approved by the Food and Drug Administration. Reference Range: Females 26 - 30y: 1.03 - 11.10 Median 4.20 AMH concentrations of >= 1.06 ng/mL is correlated with a better response to ovarian stimulation, produced more retrievable oocytes and higher odds of live according to Michaeler et al. Fertility and Sterility. 2010: 94:9811-4375. The current AMH test method correlates with [...] exclude an AMH-secreting ovarian tumor. Anti Mullerian [id number] 12:03PMBayron Mccarty Test NameResultFlagReference Anti Mullerian Hormone6.36 ng/mL For assays employing antibodies, the possibility exists for interference by heterophile antibodies in the samples.1 1.Kricka L. Interferences in Immunoassays - still a threat. Clin. Chem. 2000; 46: 0601-6800. This test was developed and its performance characteristics determined by [employer]. It has not been cleared or approved by the Food and Drug Administration. Reference Range: Females 26 - 30y: 1.03 - 11.10 Median 4.20 AMH concentrations of >= 1.06 ng/mL is correlated with a better response to ovarian stimulation, produced more retrievable oocytes and higher odds of live according to Carey et al. Fertility and Sterility. 2010: 94:8224-5837. The current AMH test method correlates with [...] exclude an AMH-secreting ovarian tumor. Rubella IgG [id number] 12:03PMBayron Mccarty Test NameResultFlagReference Rubella IgG AntibodyPOSITIVE [...] TSH WITH REFLEX TO FREE T4 IF [id number] 12:03PMBayron Mccarty Test NameResultFlagReference Thyroid Stimulating Hormone, Serum2.17 mIU/LSee Below Reference Range: 0.44 - 3.98 TSH testing is performed using different testing methodology at [facility] than at other [facility]. Direct result comparisons should only be made within the same method. Varicella Zoster IgG [id number] 12:03PMBerryBayron mccarthy Test NameResultFlagReference Varicella Zoster IgG [...] altered results in serological assays. Vitamin D 25-Bpsioxo05Vpv4219 12:03PMBibiana Bayron Test NameResultFlagReference Vitamin D 25-Hydroxy, Level17 ng/mLA . DEFICIENCY: < 20 NG/ML INSUFFICIENCY: 20-29 NG/ML SUFFICIENCY: 30-100 NG/ML THIS ASSAY ACCURATELY QUANTIFIES THE SUM OF VITAMIN D3, 25-HYDROXY AND VIT D2,25-HYDROXY. { 17-Hydroxyprogesterone, [id number] 12:03Shira Bayron Test NameResultFlagReference 17-Hydroxyprogesterone, Serum33 ng/dL [...] Endocrinol Metab. 1991;73:674-686; J Clin Endocrinol Metab. 1989;69;4261-7962; J Clin Endocrinol Metab. 1994;78:226-270. Pediatr Res 1988;23:525-529. MedLinePlus (accessed 10/25/13). This test was developed and its analytical performance characteristics have been determined by [facility] [place], [place]. It has not been cleared or approved by the U.S. Food and Drug Administration. This assay has been validated pursuant to the CLIA regulations and is used for clinical purposes. DHEA Sulfate, [id number] 12:03PMBerryBayron mccarthy Test NameResultFlagReference DHEA Sulfate, Beyxw270 ug/dL65 - 395 MATURITY-BASED REFERENCE RANGES: PUBERTAL [...] laboratory for further information. Testosterone Free + [id number] 12:03PMeBrryBayron mccarthy Test NameResultFlagReference Testosterone, Total63 ng/dLH2-45 For additional information, please refer to http://education.Oxyntix/faq/ TotalTestosteroneLCMSMSF AQ165 (This link is being provided for informational/ educational purposes only.) This test was developed and its analytical performance characteristics have been determined by [facility] [place], [place]. It has not been cleared or approved by the U.S. Food and Drug Administration. This assay has been validated pursuant to the CLIA regulations and is used for clinical purposes. Testosterone, Free Serum8.8 pg/mLH0.1-6.4 This test was developed and its analytical performance characteristics have been determined by [facility] [place], [place]. It has not been cleared or approved by the U.S. Food and Drug Administration. This assay has been validated pursuant to the CLIA regulations and is used for clinical purposes. Hemoglobin [id number] 12:03PMBibianaBayron Test NameResultFlagReference Hemoglobin A1C, Level5.5 % Diagnosis of Diabetes-Adults Non-Diabetic: < or = 5.6% Increased risk for developing diabetes: 5.7-6.4% Diagnostic of diabetes: > or = 6.5% . Monitoring of Diabetes Age (y) Therapeutic Goal (%) Adults: >18 <7.0 Pediatrics: 13-18 <7.5 7-12 <8.0 0- 6 7.5-8.5 [place] [employer]. Diabetes Care 33(S1), May 2009. Estimated Average Cuxojcp370 MG/DL GC + Chlamydia By Amplified [id number] 12:03PMBayron Mccarty Test NameResultFlagReference N.GONORRHEA,AMPLIFIEDNEG ATIVENegative SOURCE: Urine Chlamydia Trach, AmplifiedNEGATIVENegativ e Hepatitis B Surface [id number] 12:03PMBayron Mccarty Test NameResultFlagReference Hep.B Surface AgNONREACTIVESee Below Reference Range: NONREACTIVE Biotin interference may cause falsely decreased results. Patients taking a Biotin dose of up to 5 mg/day should refrain from taking Biotin for 24 hours before sample collection. Providers may contact their local laboratory for further information. Hepatitis C Antibody [id number] 12:03PMFinBayron polanco Test NameResultReference Hepatitis C-AntibodyNONREACTIVESee Below Reference Range: NONREACTIVE Results from patients taking biotin supplements or receiving high-dose biotin therapy should be interpreted with caution due to possible interference with this test. Providers may contact their local laboratory for further information. HIV 1/2 ANTIGEN/ANTIBODY SCREEN WITH REFLEX TO [id number] 12:03PMBayron Mccarty NameResultRefereoneliae HIV 1/2 AG/AB SCREENNONREACTIVESee Below Reference Range: NONREACTIVE HIV Ag/Ab screen is performed using the Siemens Atellica HIV Ag/Ab Combo assay which detects the presence of HIV p24 antigen as well as antibodies to HIV-1 (Group M and O) and HIV-2. SYPHILIS SCREENING WITH [id number] 12:03PMBayron Mcacrty NameResultFlagReference SYPHILIS TOTAL ANTIBODYNONREACTIVESee Below SOURCE: Reference Range: NONREACTIVE No significant level of Treponema pallidum antibody detected. Repeat testing in 2 to 4 weeks may be considered if early infection or incubating syphilis infection is suspected. Diagnoses/Problems Irregular menses (626.4) (N92.6) Morbid obesity (278.01) (E66.01) Orders HCG, Beta Quantitative; Status:Active; Requested for:78Cqo9045; Perform:Lab Services - Lab To Draw (Blood Test); Due:13Jul2020;Ordered; For:Irregular menses; Ordered By:Bayron Mccarty; Progesterone, Serum; Status:Active; Requested for:08Qgy5745; Perform:Lab Services - Lab To Draw (Blood [...] [facility] [phone] [facility] [phone] [place] Appointment Duration:. 25 minutes; greater than half [...] MD [facility] [phone] [facility] [phone] [place] 1 Amended By: Bayron Mccarty; Apr 14 2020 4:50 PM ESTSignatures Electronically signed by : Bayron Mccarty MD; Apr 14 2020 4:51PM EST (Author) Normal [employer] TRANSITION ASSISTANT - Procedure Visiton 1 05-28-2019 TRANSITION ASSISTANT - Procedure Visit Chief Complaint pt presents [...] 1 CAPSULE EVERY 12 HOURS DAILY; Therapy: 65Msv0994 to (Evaluate:90Ren7424) Requested for: 63Bkh7643; Last Rx:[id number] Ordered Rx By: Bayron Mccarty; Dispense: 5 Days ; #:10 Capsule; Refill: 0;For: Fertility testing; KEVIN = N; Verified Transmission to [place] [address]; Msg to Pharmacy: start medication the night [...] Signatures Electronically signed by : Kelle Vaz APRN-PARA EDUCATOR; Mar 28 2020 4:10PM EST (Author) Normal [facility] TRANSITION ASSISTANT - Office Visiton TRANSITION ASSISTANT - Office Visit Chief Complaint The patient [...] is considering single parent procreation. Her usual Optical Store Manager with whom she would plan to follow with for care in a future is Dr. Ng in [place]. Active Problems Female infertility (628.9) (N97.9) Fertility [...] 1 CAPSULE EVERY 12 HOURS DAILY; Therapy: 45Vps4488 to (Evaluate:07Ntd1501) Requested for: 78Ami6639; Last Rx:[id number] Ordered Rx By: Bayron Mccarty; Dispense: 5 Days ; #:10 Capsule; Refill: 0; For: Fertility testing; KEVIN = N; Verified Transmission to [place] [address]; Msg to Pharmacy: start medication the night before her procedure; Last Updated By: [employer]; 01/24/2020 12:08:27 PM Vitamin D 25 MCG (1000 UT) Oral Tablet; Therapy: 13Mar2020 to Recorded Dispense: 0 Days ; #: Sufficient Tablet; Refill: 0; KEVIN = N; Record; Last Updated By: Breezy Jasso; 2020 1:15:24 PM Vitals Vital Signs Recorded: 13Mar2020 01:08PM Heart Rate96 Fqilkyfu050 Fsndryppl85 Height5 ft 6 in Iyixgf964 lb BMI Xcwqxspnws51.91 BSA Calculated2.39 Tobacco Useb) No Fall Screeninga) No falls within the last year [id number] Gravida1 Para0 Pain Scale0 Diagnoses/Problems Morbid obesity [...] consultation of which greater than 50% was hsji-of-iqqh counseling. Weight loss prior to conception is [...] still a threat. Clin. Chem. 2000; 46: 6586-7349. This test was developed and its performance characteristics determined by [employer]. It has not been cleared or approved by the Food and Drug Administration. Reference Range: Females 26 - 30y: 1.03 - 11.10 Median 4.20 AMH concentrations of >= 1.06 ng/mL is correlated with a better response to ovarian stimulation, produced more retrievable oocytes and higher odds of live according to Gleicher et al. Fertility and Sterility. 2010: 94:4691-3372. The current AMH test method correlates with [...] ovarian tumor. Performed By: #### A #### [facility] [address] [place], [place] [id number] 17-HYDROXYPROGESTERONEon 17-HYDROXYPROGESTERON E 33 ng/dL Normal St. [...] Endocrinol Metab. 1991;73:674-686; J Clin Endocrinol Metab. 1989;69;8072-0351; J Clin Endocrinol Metab. 1994;78:226-270. Pediatr Res 1988;23:525-529. MedLinePlus (accessed 10/25/13). This test was developed and its analytical performance characteristics have been determined by [place]. It has not been cleared or approved by the U.S. Food and Drug Administration. This assay has been validated pursuant to the CLIA regulations and is used for clinical purposes. Performed By: #### 1 7OHP #### [facility] [address] [place], [place] TESTOST,FREE AND TOTALon TESTOSTERONE TOT.LC/MS/MS 63 ng/dL High 2-45 [facility] Comment on above: Result Comment: For additional information, please refer to http://education.Takkle/faq/ [email or web address] (This link is being provided for informational/ educational purposes only.) This test was developed and its analytical performance characteristics have been determined by [place]. It has not been cleared or approved by the U.S. Food and Drug Administration. This assay has been validated pursuant to the CLIA regulations and is used for clinical purposes. Performed By: #### G CCHA #### [facility] [address] [place] [address] TESTOSTERONE,FREE 8.8 pg/mL High 0.1-6.4 [facility] Comment on above: Result Comment: This test was developed and its analytical performance characteristics have been determined by [place]. It has not been cleared or approved by the U.S. Food and Drug Administration. This assay has been validated pursuant to the CLIA regulations and is used for clinical purposes. Performed By: #### G [facility] #### [facility] [address] [place] [address] DHEA SULFATEon 01-25-2020 DHEA SULFATE 214 ug/dL [...] for further information. Performed By: #### G [facility] #### [facility] [address] [place] [address] GC + CHLAMYDIA BY AMPLIFIED DETECTIONon 01-25-2020 CHLAMYDIA TRACH.,AMPLIFIED Negative Normal Negative [facility] Comment on above: Performed By: #### G [facility] #### [facility] [address] [place] [address] N.GONORRHEA,AMPLIFIED Negative Normal Negative [facility] Comment on above: Performed By: #### G [facility] #### [facility] [address] [place] [address] HEPATITIS B SURFACE AGon HEP.B SURFACE AG NONREACTIVE Normal NONREACTIVE [facility] Comment on above: Result Comment: Biot in interference may cause falsely decreased results. Patients taking a Biotin dose of up to 5 mg/day should refrain from taking Biotin for 24 hours before sample collection. Providers may contact their local laboratory for further information. Performed By: #### G CCHA #### [facility] [address] [place] [address] HEPATITIS C ABon 01-25-2020 HEPATITIS C AB NONREACTIVE Normal NONREACTIVE [facility] Comment on above: Result Comment: Resu lts from patients taking biotin supplements or receiving high-dose biotin therapy should be interpreted with caution due to possible interference with this test. Providers may contact their local laboratory for further information. Performed By: #### H CVAB #### [facility] [address] [place] [address] HIV ANTIGEN/ANTIBODY SCREENo n 01-25-2020 HIV AG/AB SCREEN NONREACTIVE Normal NONREACTIVE [facility] Comment on above: Result Comment: HIV Ag/Ab screen is performed using the Siemens [employer] HIV Ag/Ab Combo assay which detects the presence of HIV p24 antigen as well as antibodies to HIV-1 (Group M and O) and HIV-2. Performed By: #### G CCHA #### [facility] [address] [place] [address] RUBELLA IGG ABon 01-25-2020 RUBELLA IGG AB Positive Normal [facility] Comment on above: Result Comment: INTE [...] assays. Performed By: #### R UBIG #### [facility] [address] [place] [address] SYPHILIS SCREENING WITH REFL EXon 01-25-2020 SYPHILIS TOTAL AB NONREACTIVE Normal NONREACTIVE [facility] Comment on above: Result Comment: No s ignificant level of Treponema pallidum antibody detected. Repeat testing in 2 to 4 weeks may be considered if early infection or incubating syphilis infection is suspected. Performed By: #### S YPHR #### [facility] [address] [place] [address] TSH WITH REFLEX TO FREE T4 I F ABNORMALon 01-25-2020 TSH Qn 2.17 m[IU]/L Normal 0.44 - 3.98 [facility] Comment on above: Result Comment: TSH testing is performed using different testing methodology at [facility] than at other [facility]. Direct result comparisons should only be made within the same method. Performed By: #### G [facility] #### [facility] [address] [place] [address] VARICELLA ZOSTER IGG ABon VARICELLA ZOSTER IGG [...] assays. Performed By: #### V ARZG #### [facility] [address] [place] [address] VITAMIN D, 25-HYDROXYon 01-10 VITAMIN D, 25-HYDROXY 17 ng/mL Abnormal [facility] Comment on above: Result Comment: . DEFICIENCY: < 20 NG/ML INSUFFICIENCY: 20-29 NG/ML SUFFICIENCY: 30-100 NG/ML THIS ASSAY ACCURATELY QUANTIFIES THE SUM OF VITAMIN D3, 25-HYDROXY AND VIT D2,25-HYDROXY. { Performed By: #### G CCHA #### [facility] [address] [place] [address] GC + CHLAMYDIA BY AMPLIFIED DETECTIONon 01-24-2020 Lab Specimen Source Urine Normal [facility] Comment on above: Performed By: #### G [facility] #### [facility] [address] [place] [address] HEMOGLOBIN A1Con 01-24-2020 HbA1c (Bld) [Mass fraction] 5.5 % Normal [facility] Comment on above: Result Comment: Diag nosis of Diabetes-Adults Non-Diabetic: < or = 5.6% Increased risk for developing diabetes: 5.7-6.4% Diagnostic of diabetes: > or = 6.5% . Monitoring of Diabetes Age (y) Therapeutic Goal (%) Adults: >18 <7.0 Pediatrics: 13-18 <7.5 7-12 <8.0 0- 6 7.5-8.5 [place] [employer]. Diabetes Care 33(S1), May 2009. Performed By: #### H BA1E #### [facility] [address] [place] [address] HbA1c (Bld) [Mass fraction] 111 MG/DL Normal [facility] Comment on above: Performed By: #### H BA1E #### [facility] [address] [place] [address] TRANSITION ASSISTANT - Office Visiton 01-10 TRANSITION ASSISTANT - Office Visit Chief Complaint 29 year [...] is currently incarcerated, and will be in penitentiary until 2026. She is interested in pursuing fertility testing today, and pending these results would potentially be interested in single-parent procreation with donor sperm. She is not currently sexually active. She has a history of ectopic in 2011, which was treated with laparoscopic left salpingectomy in [facility]. 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 pain FAMILY SUPPORT SPECIALIST HISTORY: STDs: Yes, remote history of gonorrhea [...] 01/24/2020 12:05:52 PM Vitals Vital Signs Recorded: 15Zuh7074 11:13AM Bvvykbscxml54.7 F Heart Lgis900 Yjdnjlkp195 Flnijjici00 Height5 ft 6 in Wgjwlj075 lb BMI Uxtxjwhgpg65.13 BSA Calculated2.35 Tobacco Useb) No Fall Screeninga) No falls within the last year [id number] Gravida1 Para0 Pain Scale0 Diagnoses/Problems Female infertility (628.9) (N97.9) Fertility testing (V26.21) (Z31.41) Morbid obesity (278.01) (E66.01) Irregular menses (626.4) (N92.6) Screening for STD (sexually transmitted disease) (V74.5) (Z11.3) *Orders Anti Mullerian Hormone; Status:Active; Requested for:32Xhc5956; Perform:Lab Services - Lab To Draw (Non-Blood Test); Due:47Yxc5430;Ordered; For:Female infertility, Fertility testing, Irregular menses, Morbid obesity; Ordered By:Bayron Mccarty; Start: Doxycycline Monohydrate 100 MG Oral Capsule; TAKE 1 CAPSULE EVERY 12 HOURS DAILY Rx By: Bayron Mccarty; Dispense: 5 Days ; #:10 Capsule; Refill: 0; For: Fertility testing; KEVIN = N; Verified Transmission to [place] [address]; Msg to Pharmacy: start medication the night before her procedure; Last Updated By: Yeimi [employer]; 01/24/2020 12:08:27 PM Maternal Medicine Referral Evaluation and Treatment Evaluate AND Treat Status: Hold For - Scheduling Requested for: 95Nod7006 Ordered; For: Morbid obesity; Ordered By: Bayron Mccarty Performed: Due: 42Ddl4305 17-Hydroxyprogesterone, Serum; Status:Active; Requested for:03Qae6376; Perform:Lab Services - Lab To Draw (Blood Test); Due:91Jrf8528;Ordered; For:Screening for STD (sexually transmitted disease); Ordered By:Bayron Mccarty; DHEA Sulfate, Serum; Status:Active; Requested for:23Ujm0659; Perform:Lab Services - Lab To Draw (Blood Test); Due:24Hrk9548;Ordered; For:Screening for STD (sexually transmitted disease); Ordered By:Bayron Mccarty; Hemoglobin A1C; Status:Active; Requested for:19Rqi0899; Perform:Lab Services - Lab To Draw (Blood Test); Due:49Umy2072;Ordered; For:Screening for STD (sexually transmitted disease); Ordered By:Bayron Mccarty; Rubella IgG Antibody; Status:Active; Requested for:93Ocr4738; Perform:Lab Services - Lab To Draw (Blood Test); Due:62Dup0994;Ordered; For:Screening for STD (sexually transmitted disease); Ordered By:Bayron Mccarty; Testosterone Free + Total; Status:Active; Requested for:24Jan2020; Perform:Lab Services - Lab To Draw (Blood Test); Due:16Vhb9686;Ordered; For:Screening for STD (sexually transmitted disease); Ordered By:Bayron Mccraty; TSH WITH REFLEX TO FREE T4 IF ABNORMAL; Status:Active; Requested for:24Jan2020; Perform:Lab Services - Lab To Draw (Blood Test); Due:54Sas6583;Ordered; For:Screening for STD (sexually transmitted disease); Ordered By:Bayron Mccarty; Ultrasound Pelvis Transvaginal; Status:Hold For - Scheduling; Requested for:24Jan2020; Perform:[facility]; Order Comments:will call with menses to schedule; Due:74Wmi6425;Ordered; For:Screening for STD (sexually transmitted disease); Ordered By:Bayron Mccarty; Radiologist to Determine Optimal Study : Y What are the patient's signs and symptoms? : fert testing Varicella Zoster IgG Antibody; Status:Active; Requested for:24Jan2020; Perform:Lab Services - Lab To Draw (Blood Test); Due:18Odn8121;Ordered; For:Screening for STD (sexually transmitted disease); Ordered By:Bayron Mccarty; Vitamin D 25-Hydroxy; Status:Active; Requested for:24Jan2020; Perform:Lab Services - Lab To Draw (Blood Test); Due:23Apr2020;Ordered; For:Screening for STD (sexually transmitted disease); Ordered By:Bayron Mccarty; Xray Hysterosalpingogram; Status:Hold For - Scheduling; Requested for:24Jan2020; Perform:[facility]; Order Comments:will call with menses to schedule. schedule between CD5-12. 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 [address] Performed By: #### V ARZG #### [facility] [address] [place] [address] Performed By: #### R UBIG #### [facility] [address] [place] [address] Vital Signs Date Time Vital Sign Value Performing Clinician Facility 05-17-2024 15:36-0500 Body mass index (BMI) [Ratio] 49.41 kg/m2 [facility] Work Phone: [facility] 05-17-2024 15:36-0500 Body weight 138.85 kg [facility] Work Phone: [facility] 05-17-2024 15:36-0500 Diastolic blood pressure 80 mm[Hg] [facility] Work Phone: [facility] 05-17-2024 15:36-0500 Systolic blood pressure 118 mm[Hg] [employer] Work Phone: [facility] 05-03-2024 15:11-0500 Body mass index (BMI) [Ratio] 49.09 kg/m2 Mena CARRILLO Work Phone: [facility] 05-03-2024 15:11-0500 Body weight 137.95 kg Mena Marissa PA Work Phone: [facility] 05-03-2024 15:11-0500 Diastolic blood pressure 70 mm[Hg] Mena Marissa PA Work Phone: [facility] 05-03-2024 15:11-0500 Systolic blood pressure 120 mm[Hg] Mena Wilmington PA Work Phone: [facility] 04-22-2024 09:51-0500 Body mass index (BMI) [Ratio] 49.45 kg/m2 Tacho Shon DO Work Phone: [facility] 04-22-2024 09:51-0500 Body weight 138.98 kg Tacho Shon DO Work Phone: [facility] 04-22-2024 09:51-0500 Diastolic blood pressure 80 mm[Hg] Tacho Shon DO Work Phone: [facility] 04-22-2024 09:51-0500 Systolic blood pressure 130 mm[Hg] Tacho Shon DO Work Phone: [facility] 04-06-2024 14:10-0500 Body mass index (BMI) [Ratio] 48.58 kg/m2 Mena Wilmington PA Work Phone: [facility] 04-06-2024 14:10-0500 Body weight 136.53 kg Mena Marissa PA Work Phone: [facility] 04-06-2024 14:10-0500 Diastolic blood pressure 80 mm[Hg] Mena Wilmington PA Work Phone: [facility] 04-06-2024 14:10-0500 Systolic blood pressure 128 mm[Hg] Mena Marissa PA Work Phone: [facility] 03-22-2024 14:14-0500 Body mass index (BMI) [Ratio] 48.92 kg/m2 Tacho Shon DO Work Phone: [facility] 03-22-2024 14:14-0500 Body weight 137.49 kg Tacho Shon DO Work Phone: [facility] 03-22-2024 14:14-0500 Diastolic blood pressure 84 mm[Hg] Tacho Shon DO Work Phone: [facility] 03-22-2024 14:14-0500 Systolic blood pressure 126 mm[Hg] Tacho Shon DO Work Phone: [facility] 03-05-2024 23:11-0400 Diastolic blood pressure 78 mm[Hg] [facility] Work Phone: [facility] 03-05-2024 23:11-0400 Heart rate 90 /min [facility] Work Phone: [facility] 03-05-2024 23:11-0400 Respiratory rate 18 /min [facility] Work Phone: [facility] 03-05-2024 23:11-0400 SaO2% (BldA) [Mass fraction] 96 % [facility] Work Phone: [facility] 03-05-2024 23:11-0400 Systolic blood pressure 136 mm[Hg] [facility] Work Phone: [facility] 03-05-2024 19:59-0400 Body temperature 98.1 [degF] [facility] Work Phone: [facility] 03-05-2024 19:58-0400 Body height 167.64 cm [facility] Work Phone: [facility] 03-05-2024 19:58-0400 Body weight 136.55 kg [facility] Work Phone: [facility] 02-26-2024 19:50-0400 Body height 167.64 cm [facility] Work Phone: [facility] 02-26-2024 19:50-0400 Body temperature 97.8 [degF] [facility] Work Phone: [facility] 02-26-2024 19:50-0400 Body weight 136.98 kg [facility] Work Phone: [facility] 02-26-2024 19:50-0400 Diastolic blood pressure 91 mm[Hg] [facility] [employer] Work Phone: [facility] 02-26-2024 19:50-0400 Heart rate 103 /min Services [facility] Work Phone: [facility] 02-26-2024 19:50-0400 Respiratory rate 16 /min Services [facility] [employer] Work Phone: [facility] 02-26-2024 19:50-0400 SaO2% (BldA) [Mass fraction] 96 % Services [facility] Work Phone: [facility] 02-26-2024 19:50-0400 Systolic blood pressure 144 mm[Hg] Services [facility] Work Phone: [facility] 02-23-2024 14:01-0400 Body mass index (BMI) [Ratio] 48.76 kg/m2 Mena Ann PA Work Phone: [facility] 02-23-2024 14:01-0400 Body weight 137.04 kg Mena Ann PA Work Phone: [facility] 02-23-2024 14:01-0400 Diastolic blood pressure 82 mm[Hg] Mena Ann PA Work Phone: [facility] 02-23-2024 14:01-0400 Systolic blood pressure 128 mm[Hg] Mena Ann PA Work Phone: [facility] 01-20-2024 13:58-0400 Body mass index (BMI) [Ratio] 48.1 kg/m2 Tacho Shon DO Work Phone: [facility] 01-20-2024 13:58-0400 Body weight 135.17 kg Tacho Shon DO Work Phone: [facility] 01-20-2024 13:58-0400 Diastolic blood pressure 74 mm[Hg] Tacho Shon DO Work Phone: [facility] 01-20-2024 13:58-0400 Systolic blood pressure 122 mm[Hg] Tacho Menendez DO Work Phone: [facility] 10-06-2023 17:42-0400 Body height 167.64 cm [facility] Work Phone: [facility] 10-06-2023 17:42-0400 Body temperature 98.3 [degF] [facility] Work Phone: [facility] 10-06-2023 17:42-0400 Body weight 134 kg [facility] Work Phone: [facility] 10-06-2023 17:42-0400 Diastolic blood pressure 94 mm[Hg] [facility] Work Phone: [facility] 10-06-2023 17:42-0400 Heart rate 98 /min Services [facility] [employer] Work Phone: [facility] 10-06-2023 17:42-0400 Respiratory rate 18 /min Services [facility] [employer] Work Phone: [facility] 10-06-2023 17:42-0400 SaO2% (BldA) [Mass fraction] 100 % Services [facility] [employer] Work Phone: [facility] 10-06-2023 17:42-0400 Systolic blood pressure 142 mm[Hg] Services [facility] [employer] Work Phone: [facility] 09-17-2023 14:22-0400 Body height 167.[address] [facility] 09-17-2023 14:22-0400 Body mass index (BMI) [Ratio] 47.61 kg/m2 Anna Ortiz RD [facility] 09-17-2023 14:22-0400 Body weight 133.[address] [facility] 08-20-2023 13:05-040 Body height 167.6 cm Tonya Senior APRN.PARA EDUCATOR Work Phone: [facility] 08-20-2023 13:05-0400 Body weight 133.81 kg Tonya Senior APRN.PARA EDUCATOR Work Phone: [facility] 08-07-2023 15:23-0400 Body height 168.91 cm Services [facility] Work Phone: [facility] 08-07-2023 15:23-0400 Body mass index (BMI) [Ratio] 46.9 kg/m2 Services [facility] Work Phone: [facility] 08-07-2023 15:23-0400 Body weight 133.89 kg Services [employer] Work Phone: [facility] 08-07-2023 15:23-0400 Diastolic blood pressure 83 mm[Hg] Services [facility] Work Phone: [facility] 08-07-2023 15:23-0400 Heart rate 101 /min Services [facility] Work Phone: [facility] 08-07-2023 15:23-0400 Respiratory rate 18 /min Services [facility] Work Phone: [facility] 08-07-2023 15:23-0400 SaO2% (BldA) [Mass fraction] 98 % Services [facility] Work Phone: [facility] 08-07-2023 15:23-0400 Systolic blood pressure 120 mm[Hg] Services [facility] Work Phone: [facility] 06-13-2023 11:00-0500 Body height 168.28 cm Nicholas UGOBE Other [facility] 06-13-2023 11:00-0500 Body mass index (BMI) [Ratio] 48.53 kg/m2 Nicholas UGOBE Other [employer] Other 06-13-2023 11:00-0500 Body weight 137.44 kg CMGE Other [employer] Other 06-13-2023 11:00-0500 Body weight 137.43 kg Services [employer] Work Phone: [facility] 06-13-2023 11:00-0500 Diastolic blood pressure 82 mm[Hg] Nicholas UGOBE Other [facility] 06-13-2023 11:00-0500 Respiratory rate 18 /min Nicholas UGOBE Other [employer] Other 06-13-2023 11:00-0500 SaO2% (BldA) [Mass fraction] 97 % Nicholas UGOBE Other [employer] Other 06-13-2023 11:00-0500 Systolic blood pressure 120 mm[Hg] Nicholas UGOBE Other [facility] 01-08-2023 10:45-0400 Body height 168.28 cm Nicholas UGOBE Other [employer] Other 01-08-2023 10:45-0400 Body mass index (BMI) [Ratio] 52.89 kg/m2 Nicholas UGOBE Other [employer] Other 01-08-2023 10:45-0400 Body weight 149.78 kg Nicholas UGOBE Other [employer] Other 01-08-2023 10:45-0400 Diastolic blood pressure 81 mm[Hg] Nicholas UGOBE Other [employer] Other 01-08-2023 10:45-0400 Respiratory rate 18 /min [employer] Other [employer] Other 01-08-2023 10:45-0400 SaO2% (BldA) [Mass fraction] 97 % [employer] Other [employer] Other 01-08-2023 10:45-0400 Systolic blood pressure 122 mm[Hg] [employer] Other [facility] [employer] Other 06-18-2022 16:57-0500 Body height 167.64 cm Services [facility] Work Phone: [facility] 06-18-2022 16:57-0500 Body weight 157 kg Services [facility] Work Phone: [facility] 06-18-2022 16:56-0500 Body temperature 98.3 [degF] Services [facility] Work Phone: [facility] 06-18-2022 16:56-0500 Diastolic blood pressure 67 mm[Hg] Services [facility] Work Phone: [facility] 06-18-2022 16:56-0500 Heart rate 95 /min [facility] Work Phone: [facility] 06-18-2022 16:56-0500 Respiratory rate 20 /min [facility] Work Phone: [facility] 06-18-2022 16:56-0500 SaO2% (BldA) [Mass fraction] 97 % Services [facility] Work Phone: [facility] 06-18-2022 16:56-0500 Systolic blood pressure 158 mm[Hg] Services [facility] Work Phone: [facility] 12-02-2021 20:26-0400 Body height 167.64 cm Services [facility] Work Phone: [facility] 12-02-2021 20:26-0400 Body temperature 98.2 [degF] Services [facility] Work Phone: [facility] 12-02-2021 20:26-0400 Body weight 144.24 kg Services [facility] Work Phone: [facility] 12-02-2021 20:26-0400 Diastolic blood pressure 89 mm[Hg] Services [facility] Work Phone: [facility] 12-02-2021 20:26-0400 Heart rate 104 /min Services [facility] Work Phone: [facility] 12-02-2021 20:26-0400 Respiratory rate 20 /min Services [facility] Work Phone: [facility] 12-02-2021 20:26-0400 SaO2% (BldA) [Mass fraction] 96 % Services [facility] Work Phone: [facility] 12-02-2021 20:26-0400 Systolic blood pressure 156 mm[Hg] Services [facility] Work Phone: [facility] 06-19-2020 11:10-0500 BMI (Body Mass Index) 46.65 kg/m2 Bayron Bibiana GN-AJGBH-Ezduyy 310 IVF Work Phone: 06-19-2020 11:10-0500 Body weight 131.09 kg Bayron Bibiana NJ-DICYS-Ybwnks 310 IVF Work Phone: 06-19-2020 11:10-0500 BSA (Body Surface Area) 2.34 m2 Bayron Bibiana YU-KBFFT-Jxgmrv 310 IVF Work Phone: 06-19-2020 11:10-0500 Height 167.64 cm Bayron Bibiana ZH-PQYJZ-Rzotdu 310 IVF Work Phone: 06-19-2020 11:10-0500 1 1 Bayron Bibiana BT-VJUFR-Sqnrdu 310 IVF Work Phone: Comment on above: 06-19-2020 11:10-0500 0 1 Bayron Bibiana PO-OLXFR-Djuspb 310 IVF Work Phone: Comment on above: Para Pain Scale Encounters Encounter Date Encounter Type Care Provider Facility Start: 05-17-2024 End: 05-17-2024 Departed Referred Services [facility] Work Phone: [facility] Start: 05-17-2024 End: 05-17-2024 Office outpatient visit 15 minutes Tacho Menendez DO Work Phone: [facility] Comment on above: 37 weeks gestation o f ; Third trimester Start: 05-17-2024 End: 05-17-2024 ambulatory Services [facility] Work Phone: [facility] Work Phone: Start: 05-17-2024 End: 05-17-2024 Bamboo flowsheet Tacho Shon DO Work Phone: [facility] Start: 05-17-2024 End: 05-22-2024 Bamboo flowsheet Tacho Shon DO Work Phone: [facility] Start: 05-17-2024 End: 05-22-2024 Clinisync Result Encounter Tacho Shon DO Work Phone: [facility] External Department Unsolicited Start: 05-03-2024 End: 05-03-2024 Office outpatient visit [...] Start: 04-27-2024 End: 04-27-2024 [facility] Start: 04-22-2024 End: 04-22-2024 Bamboo flowsheet Tacho [...] 03-30-2024 End: 03-30-2024 ambulatory TACHO R SHON [facility] Start: 03-22-2024 End: 03-22-2024 Bamboo flowsheet [...] End: 03-05-2024 Emergency department patient visit Services [facility] Work Phone: [facility] Work Phone: Start: 03-01-2024 End: 03-01-2024 Orders Only Veda Hayes RN Maternal- Medic ine at [facility] Comment on above: Encounter for follow -up ultrasound of anatomy (Primary Dx); History of pre-eclampsia in prior , currently ; History of delivery, currently ; Obesity affecting in second trimester, unspecified obesity type Start: 02-26-2024 End: 02-26-2024 Emergency department patient visit Services [facility] Work Phone: [facility] Work Phone: Start: 02-23-2024 End: 02-23-2024 [...] Not Available Start: 02-17-2024 End: 02-17-2024 ambulatory [facility] Start: 01-26-2024 End: 01-26-2024 Clinisync Result Encounter Tacho Menendez DO Work Phone: [facility] External Department Unsolicited [...] 01-19-2024 End: 01-19-[address] [facility] Start: 12-23-2023 End: 12-23-2023 ambulatory MENA ANN Not Available Start: 11-25-2023 End: 11-25-2023 ambulatory TACHO SHON Not Available Start: 10-30-2023 End: 10-30-2023 ambulatory TACHO SHON Not Available Start: 10-09-2023 End: 10-09-2023 ambulatory LATONIA OSUNAARDO Facility:[facility] Start: 10-06-2023 End: 10-06-2023 Emergency department patient visit Services [facility] Work Phone: [facility] Work Phone: Start: 09-17-2023 End: 09-17-2023 ambulatory ANNA ORTIZ Facility:[facility] Start: 09-17-2023 End: 09-17-20[address] Nutrition therapy Anna Ortiz RD Nutrition Therapy Comment on above: Obesity, Class III, BMI 40-49.9 (morbid obesity) (HCC) (Primary Dx); Dietary counseling Start: 09-17-2023 End: 09-17-2023 Telemedicine consultation with patient Anna Ortiz RD Nutrition Therapy Start: 09-15-2023 Admission to [facility] Tonya Senior APRN.PARA EDUCATOR Work Phone: General Surgery Comment on above: Results Start: 09-15-2023 E-mail encounter fro m caregiver Tonya Senior APRN.PARA EDUCATOR Work Phone: General Surgery Start: 09-11-2023 Telephone encounter Tonya Senior APRN.PARA EDUCATOR Work Phone: General Surgery Comment on above: Results Start: 09-08-2023 End: 09-08-2023 ambulatory TONYA SENIOR Facility:[facility] Start: 09-05-2023 End: 09-05-2023 ambulatory TONYA SENIOR Facility:[facility] Start: 09-01-2023 End: 09-02-2023 ambulatory LATONIA GREENE Facility:[facility] Start: 09-01-2023 End: 09-01-2023 Admission to same day surgery center Latonia Greene PhD Work Phone: General Surgery BMI PSYL Comment on above: NO SHOW (Primary Dx) Start: 09-01-2023 End: 09-01-2023 Telemedicine consultation with patient Latonia Greene PhD Work Phone: General Surgery BMI PSYL Start: 08-20-2023 Admission to same da y surgery center Tonya Senior APRN.PARA EDUCATOR Work Phone: General Surgery Comment on above: Welcome to Bariatric Surgery Start: 08-20-2023 E-mail encounter fro m caregiver Tonya Senior APRN.PARA EDUCATOR Work Phone: [place] [id number] Start: 08-20-2023 End: 08-20-2023 ambulatory Tonya Senior APRN.PARA EDUCATOR Work Phone: General Surgery Comment on above: Body mass index (BMI ) of 50-59.9 in adult (HCC) (Primary Dx); Angel's thyroiditis; High blood cholesterol Start: 08-20-2023 End: 08-20-2023 Telemedicine consultation with patient Tonya Senior APRN.PARA EDUCATOR Work Phone: [facility] Start: 08-07-2023 End: 08-07-2023 ambulatory Services [facility] Work Phone: [facility] Work Phone: Start: 08-07-2023 End: 08-07-2023 Patient encounter procedure Services [facility] Work Phone: [facility] Work Phone: Start: 06-13-2023 Follow-up encounter Nicholas leon [facility] Start: 06-13-2023 Registered Recurring Services [facility] Work Phone: [facility] Work Phone: Start: 06-13-2023 End: 06-13-2023 ambulatory Services [facility] [employer] Other Start: 06-13-2023 End: 06-13-2023 Patient encounter procedure Services [facility] Work Phone: [facility]- Start: 01-08-2023 End: 01-08-2023 ambulatory Nicholas Michaels Other [facility] [employer] Other Start: 01-08-2023 Nutrition therapy Nicholas Brando [facility] Start: 06-18-2022 End: 06-18-2022 Emergency department patient visit Services [facility] Work Phone: [facility] Work Phone: Start: 06-03-2022 End: 06-03-[address] TACHO MENENDEZ Facility: Start: 12-02-2021 End: 12-02-2021 Emergency department patient visit Services [facility] Work Phone: [facility] Start: 07-08-2020 Patient encounter procedure Bayron Bibiana PAEZAK-MKJOY-Hvgebm 310 IVF Work Phone: Start: 07-05-2020 Patient encounter procedure Bayron Bibiana VI-QGSRS-Pxatkr 310 IVF Work Phone: Start: 06-19-2020 Patient encounter procedure Bayron Bibiana PAEZUB-BVWTN-Wfideu 310 IVF Work Phone: Start: 04-14-2020 Patient encounter procedure Bayron Bibiana PAEZBO-KTVOY-Mvfrdd 310 IVF Work Phone: Start: 03-28-2020 Patient encounter procedure Bayron Anaya [facility] Work Phone: Start: 2020 Patient encounter procedure Bayron Anaya IV[facility] Work Phone: Start: 01-24-2020 Patient encounter procedure Bayron Anaya IV[facility] Work Phone: Start: 08-01-2017 End: 08-02-2017 Ambulatory Agustin Patton Facility:[id number] Start: 07-14-2017 End: 07-15-2017 Ambulatory Agustin Carrasquillo Facility:[id number] Procedures Date Procedure Procedure Detail Performing Clinician Start: 05-17-2024 Urnls dip stick/tabl et rgnt non-auto w/o micrscp Tacho Shon DO Work Phone: Start: 05-17-2024 BOX TEST Tacho Fazi o DO Work Phone: Start: 05-03-2024 ALL THYROID STIM HORMONE Tacho Shon DO Work Phone: Start: 05-03-2024 Urnls dip [...] Work Phone: Start: 03-05-2024 Plain chest X-ray [facility] Work Phone: Start: 03-05-2024 Respiratory Panel (PCR) Services [employer] Phone: Start: 03-05-2024 Respiratory Panel (PCR) Services [employer] Work Phone: Start: 03-05-2024 Streptococcus pyogen es antigen assay Services [employer] Phone: Start: 02-26-2024 Streptococcus pyogen es antigen assay Services [employer] Phone: Start: 02-23-2024 Urnls dip stick/tabl et rgnt non-auto w/o micrscp Mena Ann PA Work Phone: Start: 01-26-2024 ALL THYROID STIM HORMONE Skai Work Phone: Start: 01-20-2024 Urnls dip stick/tabl et rgnt non-auto w/o micrscp Tacho Wonga Work Phone: Start: 12-23-2023 Microscopic observat ion [Identifier] in Cervix by Cyto stain Tacho Wonga Work Phone: Start: 07-06-2020 Antibody screen Comment on above: Performed By: #### T +S #### [facility] [address] [place] [address] Start: 07-05-2020 IO Ultrasound, limit ed pelvic, follicle monitoring Bayron Mccarty Start: 06-26-2020 IO Ultrasound, limit ed pelvic, follicle monitoring Bayron Mccarty Start: 05-10-2020 Assay of progesterone J oslissette Mccarty Adenoid excision Bayron wallace Cholecystectomy Bayron Chen ey SARS Antigen (LFIA) Services [employer] Phone: Plan of Treatment Date Care Activity Detail Author Start: 12-22-2028 Screening for malign ant neoplasm of cervix [facility] Start: 12-22-2026 Screening for malign ant neoplasm of cervix Pap Smear [facility] Start: 03-01-2025 End: 03-01-2025 US MFM with or without consult US MFM with or without consult Imaging Routine Encounter for follow-up ultrasound of anatomy History of pre-eclampsia in prior , currently History of delivery, currently Obesity affecting in second trimester, unspecified obesity type Expected: 03/01/2025 (Approximate), Expires: 03/01/2025 [employer] Work Phone: Comment on above: Expected: 03/01/2025 (Approximate), Expires: 03/01/2025 Start: 01-18-2025 Adult BMI Screening Adult BMI Screen ing [facility] Start: 01-18-2025 Tobacco Screening Tobacco Screening [facility] Start: 05-27-2024 End: 05-27-2024 Patient encounter procedure 05/27/2024 10:20 AM EST Routine [facility] [address] [place] [phone] Tacho Menendez, DO [address] [place] [address] [facility] Start: 05-26-2024 End: 05-26-2024 Patient encounter procedure 05/26/2024 2:10 PM EST Routine [facility] [address] [place] [phone] Tacho Menendez, DO [address] [place] [address] [facility] Start: 05-17-2024 Following clinical pathway protocol [facility] Start: 05-17-2024 End: 05-17-2024 Patient encounter procedure [facility] Comment on above: Arrived Start: 05-17-2024 End: 05-17-2025 CULTURE, GROUP B STREP WITH SUSCEPTIBLITY CULTURE, GROUP B STREP WITH SUSCEPTIBLITY Lab Routine Third trimester Expected: 05/17/2024, Expires: 05/17/2025 [facility] Work Phone: Comment on above: Expected: 05/17/2024 , Expires: 05/17/2025 Start: 05-17-2024 Group B Streptococcu s Culture Group B Streptococcus Culture [facility] Start: 05-03-2024 End: 05-03-2024 Patient encounter procedure 05/03/2024 2:50 PM EST Routine [facility] [address] [place] [phone] Mena Ann PA [address] [place] [address] [facility] Start: 04-22-2024 End: 04-22-2025 [...] PM EST Routine [facility] [address] [phone] Mena Ann PA [address] [place] [address] [facility] Start: 03-30-2024 End: 03-30-2024 Patient encounter procedure 03/30/2024 2:45 PM EST Appointment [facility] - Ultrasound [address] [place] [phone] [facility] - Ultrasound Start: 03-22-2024 End: 03-22-2024 Patient encounter procedure 03/22/2024 1:50 PM EST Routine [facility] [address] [facility] [place] [phone] Tacho Menendez, DO [address] [place] [address] [facility] Start: 03-22-2024 End: 03-22-2024 Professional / ancillary services management 03/22/2024 1:00 PM EST Ancillary Procedure [facility] [address] [place] [phone] [facility] Start: 03-16-2024 End: 03-16-2024 Patient encounter procedure 03/16/2024 1:30 PM EST Routine [facility] [address] [place] [phone] Tacho Menendez, DO [address] [place] [address] [facility] Start: 02-23-2024 End: 02-22-2025 CBC panel - Blood by Automated count CBC Lab Routine Diabetes mellitus screening Expected: 02/23/2024 (Approximate), Expires: 02/22/2025 [facility] Work Phone: Comment on above: Expected: 02/23/2024 (Approximate), Expires: 02/22/2025 Start: 02-23-2024 End: 02-22-2025 Measurement of glucose 1 hour after glucose challenge for glucose tolerance test Glucose tolerance, 1 hour Lab Routine Diabetes mellitus screening Expected: 02/23/2024 (Approximate), Expires: 02/22/2025 [facility] Comment on above: Expected: 02/23/2024 (Approximate), Expires: 02/22/2025 Start: 02-23-2024 End: 02-22-2025 US for US OB SCAN FOR GROWTH Imaging Routine size inconsistent with dates H/O premature delivery Expected: 02/23/2024 (Approximate), Expires: 02/22/2025 [facility] Comment on above: Expected: 02/23/2024 (Approximate), Expires: 02/22/2025 Start: 02-23-2024 End: 02-23-2024 Patient encounter procedure 02/23/2024 1:40 PM EDT Routine [facility] [address] [place] [phone] Mena Ann PA [address] [place], [facility] Arrived [facility] Comment on above: Arrived Start: 02-18-2024 End: 02-18-2024 Patient encounter procedure 02/18/2024 2:30 PM EDT Routine [facility] [address] [place] [address] Mena Ann PA [address] [place], [facility] Start: 01-11-2024 COVID-19 Vaccine ( season) COVID-19 Vaccine ( season) [facility] Start: 01-11-2024 Influenza vaccination N [facility] Start: 09-17-2023 End: 09-17-2023 Nutrition therapy 09/17/2023 2:30 PM EDT [facility] [address] [place] [id number] Anna Ortiz, SARMAD [address] [place] [address] Red/Davis/0 Diet/[facility] Comment on above: Red/Davis/0 Diet/ Vergas Start: 09-12-2023 End: 09-12-2023 Admission to same day surgery center 09/12/2023 3:30 PM EDT [facility] [address] [id number] Joo Bradley MD [address] [place] [address] Red/Kirk/0 Diet/[facility] General Surgery Comment on above: Red/Kirk/0 Diet/Anth em Start: 09-05-2023 End: 09-05-2023 ambulatory 09/05/2023 11:45 AM EDT Results Only [facility] [address] [place] [address] [place] [address] [facility] Start: 08-20-2023 End: 11-19-2023 25-hydroxyvitamin D3 [Mass/volume] in Serum or Plasma VITAMIN D 25 HYDROXY Lab Routine Body mass index (BMI) of 50-59.9 in adult (HCC) Expected: 08/20/2023, Expires: 11/19/2023 [facility] Work Phone: Comment on above: Expected: 08/20/2023 , Expires: 11/19/2023 Start: 08-20-2023 End: 11-19-2023 CBC W Auto Differential panel - Blood COMPLETE BLOOD COUNT AND DIFFERENTIAL Lab Routine Body mass index (BMI) of 50-59.9 in adult (HCC) Expected: 08/20/2023, Expires: 11/19/2023 [facility] Work Phone: Comment on above: Expected: 08/20/2023 , Expires: 11/19/2023 Start: 08-20-2023 End: 11-19-2023 Cobalamin (Vitamin B12) [Mass/volume] in Serum or Plasma VITAMIN B12 Lab Routine Body mass index (BMI) of 50-59.9 in adult (HCC) Expected: 08/20/2023, Expires: 11/19/2023 [facility] Work Phone: Comment on above: Expected: 08/20/2023 , Expires: 11/19/2023 Start: 08-20-2023 End: 11-19-2023 Comprehensive metabolic 2000 panel - Serum or Plasma COMPREHENSIVE METABOLIC PANEL Lab Routine High blood cholesterol Body mass index (BMI) of 50-59.9 in adult (HCC) Expected: 08/20/2023, Expires: 11/19/2023 [facility] Work Phone: Comment on above: Expected: 08/20/2023 , Expires: 11/19/2023 Start: 08-20-2023 End: 11-19-2023 Ferritin [Mass/volume] in Serum or Plasma FERRITIN Lab Routine Body mass index (BMI) of 50-59.9 in adult ([facility]) Expected: 08/20/2023, Expires: 11/19/2023 [facility] Work Phone: Comment on above: Expected: 08/20/2023 , Expires: 11/19/2023 Start: 08-20-2023 End: 11-19-2023 Folate [Mass/volume] in Serum or Plasma FOLATE, SERUM Lab Routine Body mass index (BMI) of 50-59.9 in adult ([facility]) Expected: 08/20/2023, Expires: 11/19/2023 [facility] Work Phone: Comment on above: Expected: 08/20/2023 , Expires: 11/19/2023 Start: 08-20-2023 End: 11-19-2023 Helicobacter pylori IgG Ab [Presence] in Serum or Plasma by Immunoassay H PYLORI IGG AB Lab Routine Body mass index (BMI) of 50-59.9 in adult ([facility]) Expected: 08/20/2023, Expires: 11/19/2023 [facility] Work Phone: Comment on above: Expected: 08/20/2023 , Expires: 11/19/2023 Start: 08-20-2023 End: 11-19-2023 Hemoglobin A1c in Blood HEMOGLOBIN A1C Lab Routine Body mass index (BMI) of 50-59.9 in adult ([facility]) Expected: 08/20/2023, Expires: 11/19/2023 [facility] Work Phone: Comment on above: Expected: 08/20/2023 , Expires: 11/19/2023 Start: 08-20-2023 End: 11-19-2023 Iron and Iron binding capacity panel - Serum or Plasma IRON AND TIBC Lab Routine Body mass index (BMI) of 50-59.9 in adult ([facility]) Expected: 08/20/2023, Expires: 11/19/2023 [facility] Work Phone: Comment on above: Expected: 08/20/2023 , Expires: 11/19/2023 Start: 08-20-2023 End: 11-19-2023 Lipid 1996 panel - Serum or Plasma LIPID PANEL BASIC Lab Routine High blood cholesterol Body mass index (BMI) of 50-59.9 in adult ([facility]) Expected: 08/20/2023, Expires: 11/19/2023 [facility] Work Phone: Comment on above: Expected: 08/20/2023 , Expires: 11/19/2023 Start: 08-20-2023 End: 11-19-2023 Natriuretic peptide.B prohormone N-Terminal [Mass/volume] in Serum or Plasma NT PRO BNP Lab Routine Body mass index (BMI) of 50-59.9 in adult ([facility]) Expected: 08/20/2023, Expires: 11/19/2023 [facility] Work Phone: Comment on above: Expected: 08/20/2023 , Expires: 11/19/2023 Start: 08-20-2023 End: 11-19-2023 NICOTINE & METAB, UR NICOTINE & METAB, UR Lab Routine Body mass index (BMI) of 50-59.9 in adult ([facility]) Expected: 08/20/2023, Expires: 11/19/2023 [facility] Work Phone: Comment on above: Expected: 08/20/2023 , Expires: 11/19/2023 Start: 08-20-2023 End: 11-19-2023 Thyrotropin [Units/volume] in Serum or Plasma THYROID STIMULATING HORMONE Lab Routine Angel's thyroiditis Body mass index (BMI) of 50-59.9 in adult ([facility]) Expected: 08/20/2023, Expires: 11/19/2023 [facility] Work Phone: Comment on above: Expected: 08/20/2023 , Expires: 11/19/2023 Start: 08-20-2023 End: 11-19-2023 TOXICOLOGY SCREEN, ROUTINE URINE TOXICOLOGY SCREEN, ROUTINE URINE Lab Routine Body mass index (BMI) of 50-59.9 in adult ([facility]) Expected: 08/20/2023, Expires: 11/19/2023 [facility] Work Phone: Comment on above: Expected: 08/20/2023 , Expires: 11/19/2023 Start: 08-20-2023 End: 11-19-2023 VITAMIN B1 (THIAMINE), WHOLE BLOOD VITAMIN B1 (THIAMINE), WHOLE BLOOD Lab Routine Body mass index (BMI) of 50-59.9 in adult (HCC) Expected: 08/20/2023, Expires: 11/19/2023 [facility] Work Phone: Comment on above: Expected: 08/20/2023 , Expires: 11/19/2023 Start: 05-12-2023 Behavioral Health Screening Behavioral Health Screening [facility] Start: 01-10-2023 Covid-19 Vaccine ( season) Covid-19 Vaccine () [facility] Start: 12-02-2021 Plain chest X-ray XR chest 1V portab [facility] Start: 12-02-2021 XR Chest [facility] Work Phone: Start: 2021 Screening for malign ant neoplasm of cervix HPV Testing [facility] Start: 2012 Screening for malign ant neoplasm of cervix Pap Testing [facility] Start: 2010 Hepatitis B Vaccine (1 of 3 - 19+ 3-dose series) Hepatitis B Vaccine (1 of 3 - 19+ 3-dose series) [facility] Start: 2009 Adult BMI Follow Up Plan Adult BMI Follow Up Plan [facility] Start: 2009 HIV screening HIV Screening [facility] Start: 2003 Depression Screening [facility] Start: 2002 DTaP,Tdap and Td Vaccines (6 - Tdap) DTaP,Tdap and Td Vaccines (6 - Tdap) [facility] Start: 2002 Urine microalbumin profile DTaP,Tdap,Td Vaccine (6 - Tdap) [facility] End: 08-19-2024 ECG COMPLETE ECG COMPLETE ECG Routine Body mass index (BMI) of 50-59.9 in adult (HCC) 1 Occurrences starting 08/20/2023 until 08/19/2024 [facility] Work Phone: Comment on above: 1 Occurrences starti ng 08/20/2023 until 08/19/2024 Patient Education [facility] Work Phone: Patient referral [facility] Work Phone: Thyrotropin [Units/volume] in Serum or Plasma TSH Lab Routine Thyroid disease (CMS/HCC) Ordered: 04/22/2024 [facility] Comment on above: Ordered: 04/22/2024 End: 09-18-2024 US Abdomen RUQ US ABD RIGHT UPPER QUADRANT Radiology Routine Body mass index (BMI) of 50-59.9 in adult (HCC) 1 Occurrences starting 08/20/2023 until 09/18/2024 [facility] Work Phone: Comment on above: 1 Occurrences starti ng 08/20/2023 until 09/18/2024 End: 09-18-2024 XR Chest PA and Lateral XR CHEST 2V FRONTAL/LAT Radiology Routine Body mass index (BMI) of 50-59.9 in adult (HCC) 1 Occurrences starting 08/20/2023 until 09/18/2024 [facility] Work Phone: Comment on above: 1 Occurrences starti ng 08/20/2023 until 09/18/2024 [id number] 310 [facility] Work Phone: [facility] c NEGATED: Highlighted row has been ruled out! Planned Goals not documented [id number] 310 IVF Work Phone: Immunizations Immunization Date Immunization Notes Care Provider Fa cili 03-11-2023 influenza virus vacc ine, unspecified formulation Tacho Menendez DO Work Phone: [facility] Healthcare Payers Date Payer Category Payer Self-pay [id number] 2022 Medicaid [id number] 2022 Medicaid [id number] [id number] 1991 Unknown [id number] 2.16.840.1.024432.3.579.2.59 3 1991 Unknown [id number] 2.16.840.1.473526.3.579.2.12 86 1991 Unknown [id number] 2.16.840.1.316906.3.579.2.12 86 1991 Unknown [id number] 2.16.840.1.781276.3.579.2.12 86 1991 Unknown [id number] 2.16.840.1.809430.3.579.2.12 86 1991 Unknown [id number] 2.16.840.1.603176.3.579.2.12 86 1991 Unknown [id number] 2.16.840.1.119419.3.579.2.12 59 1991 Unknown [id number] 2.16.840.1.832114.3.579.2.12 59 1991 Unknown [id number] 2.16.840.1.446528.3.579.2.12 59 1991 Unknown [id number] 2.16.840.1.531438.3.579.2.12 59 1991 Unknown [id number] 2.16.840.1.039409.3.579.2.12 59 1991 Unknown [id number] 2.16.840.1.262378.3.579.2.12 59 1991 Unknown [id number] 2.16.840.1.461412.3.579.2.12 59 1991 Unknown [id number] 2.16.840.1.088817.3.579.2.12 59 1991 Unknown [id number] 2.16.840.1.553189.3.579.2.12 59 1991 Unknown [id number] 2.16.840.1.460972.3.579.2.12 59 1959 Medicaid [id number] Private Health Insurance [facility] [id number] Unknown [id number] Unknown Regular Insurance [id number] Unknown [employer] [id number] Unknown Regular Auto/Medical [id number] Unknown [id number] 2.16.840.1.769688.3.579.2.53 1 Unknown [id number] 2.16.840.1.921542.3.579.2.53 1 Unknown [id number] 2.16.840.1.223267.3.579.2.53 1 Unknown [id number] 2.16.840.1.781548.3.579.2.53 1 Unknown [id number] 2.16.840.1.536964.3.579.2.53 1 Social History Date Type Detail Facility Start: 12-02-2021 End: 05-17-2023 Tobacco smoking status MIIS Never smoked tobacco (finding) [facility] Start: 1990 Sex Assigned At Female [facility] Start: 08-20-2023 End: 10-30-2023 Sex Assigned At [employer] Other Start: 05-17-2023 End: 08-20-2023 Tobacco use and exposure Smokeless tobacco non-user [facility] Work Phone: Start: 08-20-2023 End: 05-17-2024 Alcohol intake Current drinker of alcohol (finding) [facility] Start: 08-20-2023 End: 10-30-2023 History of Social function [facility] National Score (1-100), lower number is lower risk [address] [facility] Start: 08-20-2023 Alcohol Comment occ [facility] Start: 1990 Sex Assigned At Not on file [facility] Start: 08-26-2023 Gender identity Identifies as female gender (finding) [facility] Start: 08-26-2023 Sexual orientation Heterosexual (fin ding) [facility] Start: 09-14-2023 [facility] How often to you hav e [...] Start: 01-19-2024 Alcoholic beverage intake Ex-drinker (finding) [facility] Start: 12-13-2014 End: 05-19-2024 Sex Female (finding) [facility] NEGATED: Highlighted row - - [id number] 310 IVF Work Phone: Functional Status Date Assessment Result Facility NEGATED: Highlighted row Functional performance Functional status health issues are not documented Disease [id number]-Mhstsj 310 IVF Work Phone: Mental Status Date Assessment Result Facility NEGATED: Highlighted row Cognitive function [Interpretation] Cognitive status health issues are not documented Disease [id number] 310 IV[facility] Work Phone: Clinical Notes 01-08-2023 to 05-17-2024 Emma Mcbride LPN - 05/17/2024 3:10 PM GERARDO Hunter - 05/03/2024 2:50 PM Fawad Fernandez LPN [...] OTHER SURGICAL HISTORY 2020 IUI 07/10/20 [facility] SALPINGECTOMY Left 2012 ectopic REVIEW OF [...] nursing note reviewed. Exam conducted with a district ranger present. Vitals: Estimated body mass index is [...] Tacho Menendez DO documented in this encounter [facility] 05-03-2024 History of Presen t illness [...] OTHER SURGICAL HISTORY 2020 IUI 07/10/20 [facility] SALPINGECTOMY Left 2011 ectopic REVIEW OF [...] of: GERARDO Vazquez documented in this encounter [facility] 04-22-2024 History of Presen t illness [...] Morbid obesity with BMI of 50.0-59.9, adult (CMS/[facility]) Vaginal delivery Social History Tobacco Use [...] OTHER SURGICAL HISTORY 2020 IUI 07/10/20 [facility] SALPINGECTOMY Left 2011 ectopic REVIEW OF [...] nursing note reviewed. Exam conducted with a district ranger present. Vitals: Estimated body mass index is [...] Tacho Menendez DO documented in this encounter [facility] 04-06-2024 History of Presen t illness [...] OTHER SURGICAL HISTORY 2020 IUI 07/10/20 [facility] SALPINGECTOMY Left 2011 ectopic REVIEW OF [...] of: GERARDO Vazquez documented in this encounter [facility] 03-22-2024 History of Presen t illness [...] OTHER SURGICAL HISTORY 2020 IUI 07/10/20 [facility] SALPINGECTOMY Left 2012 ectopic REVIEW OF [...] nursing note reviewed. Exam conducted with a district ranger present. Vitals: Estimated body mass index is [...] Tacho Menendez DO documented in this encounter [facility] 02-23-2024 History of Presen t illness [...] Morbid obesity with BMI of 50.0-59.9, adult (CMS/[facility]) Vaginal delivery HISTORY PAST MEDICAL HISTORY SOCIAL HISTORY Past Medical History: Diagnosis Date Abdominal pain Breast pain, right Cholelithiasis Encounter for cervical smear to confirm findings of recent normal smear following initial abnormal smear Angel's disease (CMS/HCC) Hypothyroidism (CMS/HCC) Morbid obesity (CMS/HCC) Morbid obesity with BMI of 50.0-59.9, adult ([facility]) Vaginal delivery Social History Tobacco Use [...] OTHER SURGICAL HISTORY 2020 IUI 07/10/20 [facility] SALPINGECTOMY Left 2011 ectopic REVIEW OF [...] nursing note reviewed. Exam conducted with a district ranger present. Vitals: Estimated body mass index is [...] of: GERARDO Vazquez documented in this encounter [facility] 01-20-2024 History of Presen t illness [...] initial abnormal smear Angel's disease (CMS/HCC) Hypothyroidism ([facility]/HCC) Morbid obesity ([facility]) Morbid obesity with BMI of 50.0-59.9, adult ([facility]) Vaginal delivery HISTORY PAST MEDICAL HISTORY SOCIAL HISTORY Past Medical History: Diagnosis Date Abdominal pain Breast pain, right Cholelithiasis Encounter for cervical smear to confirm findings of recent normal smear following initial abnormal smear Angel's disease (CMS/HCC) Hypothyroidism (CMS/HCC) Morbid obesity ([facility]) Morbid obesity with BMI of 50.0-59.9, adult ([facility]) Vaginal delivery Social History Tobacco Use [...] OTHER SURGICAL HISTORY 2020 IUI 07/10/20 [facility] SALPINGECTOMY Left 2011 ectopic REVIEW OF [...] nursing note reviewed. Exam conducted with a district ranger present. Vitals: Estimated body mass index is [...] notified. Pt has follow up appt at [facility] in four weeks. Pt to return to office in four weeks for scheduled OB appt. Documented by Priscilla Fernandez LPN on behalf of: Tacho Menendez DO documented in this encounter [facility] 10-09-2023 Note HNO ID: [id number] Author: LATONIA GREENE, PhD Service: ? Author Type: Psychologist Type: Progress Notes Filed: 10/17/2023 11:09 Note Text: [facility] BARIATRIC SURGERY BEHAVIORAL HEALTH EVALUATION BMI Surgical Pathway Visit type: Psychology Visit DATE OF SERVICE: October 09, 2023 TIME OF SERVICE: 1:00 PM - 2:00 PM COST CENTER: [facility] CPT CODE: - [id number] Virtual Psych Diagnostic Eval BILLING CODE: ENDO PSYL LASHON Greene DATE OF FIRST SERVICE THIS CYCLE: October 09, 2023 SESSION #: 1 I have communicated my name and active licensure. The patient's identity and physical location (see below) were verified at the time of this visit. Either the patient or their legal operations support representative has been informed of the risks and benefits of -- and alternatives to -- treatment through a remote evaluation and consents to proceed with the evaluation remotely. This evaluation is NOT intended for forensic, disability or child custody purposes. The patient e-signed a copy of the consent form via [employer] and the [facility] insurance benefits, fees for service, emergency procedures, [...] in case of emergency and/or disconnection. [address] [place] [address] (Change address in [facility], was mother) Alternate Costume Rental Clerk Bibi Arrieta (Mother) [phone] (Home Phone) Patient identified the following plan to follow in case of emergency: Go to emergency room (nearest is [facility]) or call 911. IDENTIFYING INFORMATION: Ms. [...] pt has l (more content not included)... [facility] 09-22-2023 Telephone encounter Note Can not schedule patient as there is already a patient scheduled for that day and time. Please advise. Thanks Meme Castrejon [facility] 09-22-2023 Telephone encounter Note ----- Message from Anna Ortiz RD sent at 09/17/2023 3:17 PM EDT ----- Regarding: virtual follow up Please schedule for a virtual up 6/7 at 1. The patient is aware, no call needed. Thank you! Anna [facility] 09-22-2023 Miscellaneous Notes Can not schedule [...] APRN.MERON documented in this encounter [facility] 09-17-[address] - [...] full-liquid diet. Examples: Slim Fast Advanced Nutrition [place] Breakfast Essentials Light Start Drink mixed with [...] Bariatric Multivitamin and Calcium Citrate (total of 3679-3499 mg/day) * take calcium citrate separately from Multivitamin with iron at least 2 hours apart and 4 hours apart from additional calcium www.procarenoIs That Odd.iPAYst - Bariatric Choice: 4 Complete Multivitamins (chewables) [...] day documented in this encounter [facility] 09-17-2023 Note HNO ID: [id number] Author: ANNA ORTIZ RD Service: ? Author Type: Registered Dietitian Type: Progress Notes Filed: 09/17/2023 15:19 Note Text: [facility] Nutrition Therapy: Virtual Consult - Initial Assessment I have communicated my name and active licensure. The patient?s identity and physical location were verified at the time of this visit. Either the patient or their legal operations support representative has been informed of the risks [...] Guide to Surgery by next session [email or web address] -/[email or web address]/ [email or web address]?la=[email or web address] 2. Do not skip [...] Examples: ? Slim Fast Advanced Nutrition ? [place] Breakfast Essentials ?Light Start? Drink mixed with [...] in the AM, 2 in the PM) www.bariatricfusion.iPAYst - 51hejia.com Health: 1 Bariatric Multivitamin and Calcium Citrate (total of 3079-9410 mg/day) * take calcium citrate separately from Multivitamin with iron at least 2 hours apart and 4 hours apart from additional calcium www.Genomed.iPAYst - Bariatric Choice: 4 Complete Multivitamins (chewables) per day Www.bariatricMachineShop, Inc.iPAYst - Bariatric Advantage: 2 Multivitamins and 3 Calcium Citrate Chewables per day * take calcium citrate separately from Multivitamin with iron at least 2 hours apart and 4 hours apart from additional calcium Www.bariatricadvantage.iPAYst Start practicing eating slowly, chewing each bite [...] and using Phen (more content not included)... [facility] 09-17-2023 History of Presen t illness Narrative [facility] Nutrition Therapy: Virtual Consult - Initial Assessment I have communicated my name and active licensure. The patient s identity and physical location were verified at the time of this visit. Either the patient or their legal operations support representative has been informed of the risks [...] Your Guide to Surgery by next session [email or web address] -/[email or web address]/ [email or web address] [email or web address]?la=en 2. Do not skip [...] full-liquid diet. Examples: Slim Fast Advanced Nutrition [place] Breakfast Essentials Light Start Drink mixed with [...] in the AM, 2 in the PM) www.bariatricfusion.iPAYst - 51hejia.com Health: 1 Bariatric Multivitamin and Calcium Citrate (total of 2740-6227 mg/day) * take calcium citrate separately from Multivitamin with iron at least 2 hours apart and 4 hours apart from additional calcium www.Genomed.iPAYst - Bariatric Choice: 4 Complete Multivitamins (chewables) per day Www.bariatricchoice.com - Bariatric Advantage: 2 Multivitamins and 3 Calcium Citrate Chewables per day * take calcium citrate separately from Multivitamin with iron at least 2 hours apart and 4 hours apart from additional calcium Www.bariatricadvantage.iPAYst Start practicing eating slowly, chewing each bite [...] suggested by 180 Initial weight: 295 lbs. [place] body weight is 155 lbs. Excess body weight is 140 lbs. Goal weight pre-op is 281 lbs. Protein needs are estimated at 85gm (1.2 - protein/kg IBW) Patient meets the National Institutes of Health guidelines for weight loss surgery and has [employer] Insurance therefore is required to complete 0 [...] PM documented in this encounter [facility] 09-11-2023 Telephone encounter Note Attempted to call pt, re: hypothyroid and low vitamin d levels, no answer, left vm. Tonya Senior APRN.PARA EDUCATOR [facility] 09-01-2023 Note HNO ID: [id number] Author: LATONIA GREENE, PhD Service: ? Author Type: Psychologist Type: Progress Notes Filed: 09/01/2023 13:22 Note Text: [facility] Progress Note 09/01/2023 Billing code: Jc Patient did not attend, cancel, or reschedule this appointment. Provider left HIPAA compliant voicemail and [employer] message with contact information to reschedule. Latonia Greene, PhD Clinical Psychologist [facility] 09-01-2023 History of Presen t illness Narrative [facility] Progress Note 09/01/2023 Billing code: Jc Patient did not attend, cancel, or reschedule this appointment. Provider left HIPAA compliant voicemail and [employer] message with contact information to reschedule. Latonia Greene, PhD Clinical Psychologist documented in this encounter [facility] 08-20-2023 Note HNO ID: [id number] Author: TONYA SENIOR APRN.PARA EDUCATOR Service: ? Author Type: Nurse Practitioner Type: Progress Notes Filed: 08/20/2023 16:21 Note Text: have communicated my name and active licensure. The patient's identity and physical location were verified at the time of this visit. Either the patient or their legal operations support representative has been informed of the risks and benefits of -- and alternatives to -- treatment through a remote evaluation and consents to proceed with the evaluation remotely. BMI MEDICAL CONSULT I have communicated my name and active licensure. The patient's identity and physical location were verified at the time of this visit. Either the patient or their legal operations support representative has been informed of the risks [...] Exercise: active lifestyle with toddler, works in [employer] at [employer] Functional Capacity: -Walk 4 blocks on level [...] HEMOGLOBIN A1C - (more content not included)... [facility] 08-20-2023 History of Presen t illness Narrative Images from the original note were not included. have communicated my name and active licensure. The patient's identity and physical location were verified at the time of this visit. Either the patient or their legal operations support representative has been informed of the risks and benefits of -- and alternatives to -- treatment through a remote evaluation and consents to proceed with the evaluation remotely. BMI MEDICAL CONSULT I have communicated my name and active licensure. The patient's identity and physical location were verified at the time of this visit. Either the patient or their legal operations support representative has been informed of the risks [...] PANEL - LIPID PANEL BASIC Tonya Senior APRN.PARA EDUCATOR -- Recommend that she should not become [...] Visit documented in this encounter [facility] 06-13-2023 Evaluation note Encounter Date Diagnosis [...] 8 weeks -Handed patient self referral to [facility] bariatric surgery program -Hxrwe-uw-fcmi A1c December 2022 5.4%-Follow up in clinic in 8 weeksThis note was created with voice recognition software. Please excuse errors in branch or department chief librarian. Jun, Dietary surveillance and counseling (ICD-10 - [...] for a goal of 5% weight reduction. [employer] Other 08-30-2023 Evaluation note* Encounter Date [...] on in the past and denies side dosrhrk-Ogegq-zi-care A1c today 5.4%-Follow up in clinic in 4 weeksThis note was created with voice recognition software. Please excuse errors in branch or department chief librarian. Dec, Dietary surveillance and counseling (ICD-10 - [...] with the patient, and documenting clinical information. [employer] Other Chirf complaint+Reason for visit Narrative* Chief Complaint Obesity Reason for Visit Exercise counseling Severe obesity (BMI >= 40) [facility] Work Phone: chief complaint+Reason for visit Narrative* Chief Complaint Pos test, Cramping, Vaginal bleeding Reason for Visit Exercise counseling Severe obesity (BMI >= 40) [facility] Work Phone: Evaluation noteNo assessment information available [facility] Work Phone: Evaluvrmud note* Diagnosis Onset Date Resolution Status Exercise counseling acute Severe obesity (BMI >= 40) delilah kevin [facility] Work Phone: Evaluation note* Diagnosis Body mass index (BMI) of 50-59.9 in adult (HCC)- Primary Body Mass Index 50.0-59.9, adult Angel's thyroiditis Chronic lymphocytic thyroiditis High blood cholesterol Pure hypercholesterolemia [facility] Diagnosis NO SHOW- Primary [facility]* Diagnosis Obesity, Class III, BMI 40-49.9 (morbid obesity) ([facility])- Primary Morbid obesity Dietary counseling Dietary surveillance and counseling documented [facility]* Diagnosis Vitamin D deficiency- Primary Unspecified vitamin D deficiency [facility]* Diagnosis 25 weeks gestation of Second trimester state, incidental Diabetes mellitus screening Screening for diabetes mellitus size inconsistent with dates H/O premature delivery [facility] Encounter for follow-up ultrasound of anatomy- Primary History of pre-eclampsia in prior , currently with other poor obstetric history History of delivery, currently with history of pre-term labor Obesity affecting in second trimester, unspecified obesity type [facility] Diagnosis Third trimester state, incidental 29 weeks gestation of [facility] Diagnosis Third trimester state, incidental 31 weeks gestation of H/O premature delivery [facility] Diagnosis 33 weeks gestation of Third trimester state, incidental H/O premature delivery Thyroid disease (CMS/HCC) Unspecified disorder of thyroid H/O pre-eclampsia in prior , currently documented in this encounter [facility]* Diagnosis Second trimester state, incidental [facility] Diagnosis 35 weeks gestation of Third trimester state, incidental [facility] Diagnosis 37 weeks gestation of Third trimester state, incidental [facility] - Reported* Type Description Date Surgical History adnoidectomy Surgical History gall bladder Surgical History L Fallopian tube removed Hospitalization History See Above [employer] Other Hospital Discharge instructions Additional Instructions You may take yhbz-ggt-vdsepug cough and cold medication as needed You may take xbyh-vaa-alnafxa Tylenol and/or ibuprofen as needed Increase oral fluids Follow-up with family doctor as needed Return to the ER for any acute difficulty breathing high fever vomiting or any other [facility] Work Phone: Hospital Discharge instructions Additional Instructions Nothing into vagina until seen by TRANSITION ASSISTANT May take Tylenol for discomfort Increase oral fluids Follow-up with TRANSITION ASSISTANT Return to the ER for heavy bleeding greater than a pad an hour feeling dizzy lightheaded or any other concernsMem[facility] Work Phone: Hospital Discharge instructions Additional Instructions Follow-up with your OB in the next week.[facility] Work Phone: InstructionsNot on filedocumented in this encounter [facility] SystemReason for [facility] (narrative)* Diagnostic Procedure Only (Routine) - Pending Review Specialty Diagnoses / Procedures Referred By Contac t Referred To Contact [facility] Diagnoses Body mass index (BMI) of 50-59.9 in adult (HCC) Procedures US ABD RIGHT UPPER QUADRANT US ABDOMINAL REAL TIME W/IMAGE LIMITED Tonya Senior APRN.CNP [address] [place] [address] [place] [id number] Referral ID Status Reason Start Date Expiration Date Visits Requested Visits Authorized [id number] Pending Review Auto-Generat ed Referral 08/20/2023 09/18/2024 1 1 * Outpatient Procedure (Routine) - Pending Review Specialty Diagnoses / Procedures Referred By Contac t Referred To [facility] Diagnoses Body mass index (BMI) of 50-59.9 in adult (HCC) Procedures ECG COMPLETE ECG ROUTINE ECG W/LEAST 12 LDS W/I&R Tonya Senior APRN.CNP [address] [place] [address] [facility] [address] [place] [id number] Referral ID Status Reason Start Date Expiration Date Visits Requested Visits Authorized [id number] Pending Review Auto-Generat ed Referral 08/20/2023 08/19/2024 [address] [facility] Summary Purpose Family History No Family [...] section and content) DATE CREATED AUTHOR 10/31/2017 [facility] DATE CREATED AUTHOR AUTHOR'S ORGANIZ ATION 04/23/2020 [facility] DATE CREATED AUTHOR AUTHOR'S ORGANIZ ATION 08/08/2020 [facility] DATE CREATED AUTHOR AUTHOR'S ORGANIZ ATION 08/22/2020 [facility] DATE CREATED AUTHOR AUTHOR'S ORGANIZ ATION 06/11/2022 [facility] DATE CREATED AUTHOR AUTHOR'S ORGANIZ ATION 09/06/2023 [facility] DATE CREATED AUTHOR AUTHOR'S ORGANIZ ATION 10/03/2023 [facility] DATE CREATED AUTHOR AUTHOR'S ORGANIZ ATION 10/18/2023 [facility] DATE CREATED AUTHOR AUTHOR'S ORGANIZ ATION 01/20/2024 [facility] DATE CREATED AUTHOR AUTHOR'S ORGANIZ ATION 04/30/2024 [facility] DATE CREATED AUTHOR AUTHOR'S ORGANIZ ATION 05/23/2024 [facility] EPIC DATE CREATED AUTHOR AUTHOR'S ORGANIZ ATION 05/24/2024 [facility] Care Teams (unrecognized sec tion and content) Team Status: Inactive Member Role Status Dates Services Family Health Primary Care Provider Active Ck To PA-C Emergency Provider Active Team Status: Active Member Role Status Dates Services Family Health Primary Care Provider Active Team Status: Inactive Member Role Status Dates Services Family Health Primary Care Provider Active Marychuy Kyle P[employer]IC [employer] DESIGNER-BC Emergency Provider Active Team Status: Inactive Member Role Status Dates Nicholas Michaels DO Attending Provider Active St art: June 13, 2023 End: June 13, 2023 Team Status: Active Member Role Status Dates Services Family Health Primary Care Provider Active Start: June 13, 2023 Nicholas Michaels DO Attending Provider Active St art: June 13, 2023 Team Status: Inactive Member Role Status Dates Services Family [facility] Primary Care Provider Active Start: August 07, 2023 End: August 07, 2023 Nicholas Michaels DO Attending Provider Active St art: August 07, 2023 End: August 07, 2023 Team Status: Inactive Member Role Status Dates Services Family [facility] Primary Care Provider Active Start: October 06, 2023 End: October 06, 2023 Marychuy Kyle P[employer]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 HospitalIn the event this information is protected by the Federal Confidentiality of Alcohol and Drug Abuse Patient Records regulations: The Federal rules restrict any use of the information to criminally investigate or prosecute any alcohol or drug abuse patient.[facility] HospitalIn the event this information is protected by the Federal Confidentiality of Alcohol and Drug Abuse Patient Records regulations: The Federal rules restrict any use of the information to criminally investigate or prosecute any alcohol or drug abuse patient.[facility] HospitalIn the event this information is protected by the Federal Confidentiality of Alcohol and Drug Abuse Patient Records regulations: The Federal rules restrict any use of the information to criminally investigate or prosecute any alcohol or drug abuse patient.[facility] HospitalIn the event this information is protected by the Federal Confidentiality of Alcohol and Drug Abuse Patient Records regulations: The Federal rules restrict any use of the information to criminally investigate or prosecute any alcohol or drug abuse patient.[facility] HospitalIn the event this information is protected by the Federal Confidentiality of Alcohol and Drug Abuse Patient Records regulations: The Federal rules restrict any use of the information to criminally investigate or prosecute any alcohol or drug abuse patient.[facility] FOR RECORDS PERTAINING TO PATIENTS WHO [...] THE PRIMARY CLINICAL RECORDS. [facility] [employer] [facility] provides no warranty or guarantee of the accuracy or completeness of information in this document.
[2024-05-25 21:11] VITALS: BP 145/77; PULSE 90
[2024-05-25 21:17] VITALS: BP 145/84; PULSE 95
[2024-05-25 22:20] LABS: Basophils Percent Auto 0.3 % (0.2-2.0); Eosinophils Absolute Auto 0.1 10^3/uL (0.0-0.7); Eosinophils Percent Auto 1.8 % (0.9-7.0); Hematocrit 36.5 % (36.0-48.0); Hemoglobin 12.4 g/dL (12.0-16.0); Immature Granulocytes Abs Auto 0.03 10^3/uL (0.00-0.03); Immature Granulocytes Pct Auto 0.4 % (0.0-0.5); Lymphocytes Absolute Auto 2.2 10^3/uL (1.2-3.8); Lymphocytes Percent Auto 31.4 % (20.5-60.0); Mean Corpuscular Volume 88.4 fL (81.0-99.0); Mean Platelet Volume 9.6 fL (9.5-13.5); Monocytes Absolute Auto 0.5 10^3/uL (0.3-0.8); Monocytes Percent Auto 7.5 % (1.7-12.0); Neutrophils Absolute Auto 4.1 10^3/uL (1.4-6.5); Neutrophils Percent Auto 58.6 % (43.0-75.0); Platelet Count 380 10^3/uL (150-450); Red Blood Count 4.13 10^6/uL (4.20-5.40)
[2024-05-25 22:26] LABS: Creatinine Urine Random 115.64 mg/dL (20.00-300.00); Protein Creatinine Ratio Urine 0.13; Total Protein Urine Random 15.4 mg/dL (<=11.9)
[2024-05-25 22:41] LABS: Alanine Aminotransferase 16 U/L (14-59); Aspartate Amino Transferase 11 U/L (15-37); Estimated GFR (African America >60 (>=60 mL/min/1.73m^2); Estimated GFR (Non-African Ame >60 (>=60 mL/min/1.73m^2); Uric Acid 3.9 mg/dL (2.6-6.0)
[2024-05-25 22:53] LABS: INR 0.96; Prothrombin Time 10.2 sec (9.0-11.6)
[2024-05-25 22:55] LABS: Fibrinogen 446 mg/dL (200-400)
[2024-05-25 23:15] VITALS: BP 130/78
--- OUTSIDE RECORDS SUMMARY | 2024-05-25 23:37 | XMS_ITS | CCD ---
Author Organization [facility] Care Team Providers Care Manager Payer Name Role Phone Agustin Patton Unavailable Unavailable Agustin Patton Unavailable Unavailable Bayron Mccarty Unavailable Unavailable Unavailable Unavailable Unavailable Unavailable Unavailable Unavailable [facility] Primary Care Provider DEMETRIUS To Emergency Provider [phone] DR TACHO MENENDEZ Attending Unavailable DR TACHO MENENDEZ Consulting Unavailable DR TACHO MENENDEZ Admitting Unavailable [facility] Primary Care Provider [facility] Marychuy E Emergency Provider [phone] Nicholas Michaels Unavailable [facility] Services Primary Care Provider DO Nicholas Michaels Attending Provider Unavailable Primary Care Provider Unavailabl e Unavailable Primary Care Provider Unavailabl e LATONIA GREENE Attending Unavailable TONYA SENIOR Attending Unavailable [facility] Primary Care Provider [phone] [facility] Marychuy E Emergency Provider LATONIA GREENE Referring Unavailable LATONIA GREENE Attending Unavailable ANNA ORTIZ Attending Unavailable TONYA SENIOR Referring Unavailable TONYA SENIOR Referring Unavailable TACHO MENENDEZ Referring Unavailable MAKEDA GROSS Attending Unavailable TACHO MENENDEZ Referring Unavailable Unavailable Primary Care Provider Unavailabl e [facility] Primary Care Provider DEMETRIUS To Emergency Provider Unavailable Primary Care Provider UnavailDO Devika Nicholas Emergency Provider [phone] SHON, TACHO R Referring Unavailable SHON, TACHO R Referring Unavailable SHON, TACHO R Referring Unavailable [facility] Primary Care Provider [phone]( [phone] Ck To PA-C Emergency Provider Devika De La Garza DO Emergency Provider [phone] Shon DO, Tacho Attending Provider SHON, TACHO Attending Unavailable MARISSA, MENA Attending Unavailable SHON, TACHO Attending Unavailable MARISSA, MENA Attending Unavailable SHON, TACHO Attending Unavailable MARISSA, MENA Attending Unavailable SHON, TACHO Attending Unavailable MARISSA, MENA Attending Unavailable SHON, TACHO Attending Unavailable [facility] Primary Care Unavaila ble Bullimore, Marychuy E Admitting Unavailable Bullimore, Marychuy E Attending Unavailable Shon, Tacho Admitting Unavailable Shon, Tacho Attending Unavailable [facility] Primary Care Unavaila Nicholas Willams Admitting Unavailable Nicholas Michaels Attending Unavailable Ck To Attending Unavailable [facility] Primary Care Unavaila Ck Castrejon Admitting Unavailable Devika De La Garza Admitting Unavailable Devika De La Garza Attending Unavailable [facility] Unavaila ble Medications Current Medications [...] mg/ml oral solution (3 sources) Phenothiazine, Uncompetitive S-yytqhv-V-aspartate Receptor Antagonist, Sigma-1 Agonist Start: 02-26-2024 take [...] Daily 30 tablet 11 10/30/2023 10/29/2024 Active Inkerman (No Known Home Meds) (3 sources) Start: 10-06-2023 Inkerman (No Kn own Home Meds) Active October 06, 2023 12:00am Start: 06-18-2022 In[place]erman (No Kn own Home Meds) Active June [...] oral solution (8 sources) alpha-Adrenergic Agonist, Uncompetitive C-gkmjgq-J-asparta te Receptor Antagonist, Sigma-1 Agonist Start: 2 [...] 26, 2019 11:58am July 28, 2020 6:27pm Vlpzvmpz-Uco-Jj-Fa () 1 mg Tablet (8 sources) Start: 12-31-2020 End: 07-04-2021 take 1 tablet by mouth once Aeagbgqv-Djo-Ad-Fa () 1 mg Tablet Discontinued TAB PO December 30, 2020 11:00pm July 04, 2021 9:48am Start: 12-31-2020 End: 07-04-2021 take 1 tablet by mouth once Pxnkeuhh-Pfi-Ck-F a () 1 mg Tablet Discontinued TAB [...] Start: 06-19-2020 take 1 capsule by mo [facility] twice daily Progesterone Micronized 100 MG Oral Capsule TAKE 1 CAPSULE Twice daily insert capsules vaginally Quantity: 30 Refills: 3 Bayron Mccarty MD Start : 19-Jun-2020 Active sennosides, halfway 8.6 mg oral tablet (1 source) take 4 tablets by mo [facility] every twenty-four hours Senna 8.6 MG 4 [...] OUT GROUP B STREP [facility] [address] [facility] [address] 05/17/24 [facility] GROUP B STREP [facility] Strep B Culture (PCN Allergi c)on 05-17-2024 Strep B Culture (PCN Allergic) Strep B Only Cult No Group B Beta Streptococcus Isolated 3 Days PERFORMED BY: [place] [address] PATHOLOGIST AQUACULTURE PROGRAM DIRECTOR APOLINAR POLANCO M.D. Normal [facility] Comment on above: Performed By: #### C USTB(PCN) #### [facility] [address] Urinalysis macro (dipstick) panel (U)on 05-17-2024 Bilirubin, UA Negative Negative - 4(70) +++ mg/dL [facility] Blood, UA Negative Negative - 50 Bradley/mcL [facility] Clarity, UA Clear [facility] Color, UA Jessica [facility] Glucose, UA Negative Negative - 1999(110) ++++ mg/dL [facility] Interpretation and review of laboratory results Abnormal [facility] Ketones, UA Negative Negative - 160(16) ++++ mg/dL [facility] Leukocytes, UA Positive Negative - 500+++ Gabby/mcL [facility] Comment on above: small Nitrite, UA Negative Negative - Positive [facility] pH, UA 6.5 5 - 9 [facility] Protein, UA Positive Negative - 1999(20) ++++ mg/dL [facility] Comment on above: 30 Spec Grav, UA 1.03 1 - 1.03 [facility] Urobilinogen, UA 0.2 0.2 - 12 mg/dL [facility] ALL THYROID STIM HORMONEon 1 07-04-2023 TSH Qn 2.422 m[IU]/L [facility] Urinalysis macro (dipstick) panel (U)on 05-03-2024 Bilirubin, UA Negative Negative - 4(70) +++ mg/dL [facility] Blood, UA Negative Negative - 50 Bradley/mcL [facility] Clarity, UA Clear [facility] Color, UA Yellow [facility] Glucose, UA Negative Negative - 1999(110) ++++ mg/dL [facility] Interpretation and review of laboratory results Abnormal [facility] Ketones, UA Negative Negative - 160(16) ++++ mg/dL [facility] Leukocytes, UA Positive Negative - 500+++ Gabby/mcL [facility] Comment on above: small Nitrite, UA Negative Negative - Positive [facility] pH, UA 6 5 - 9 [facility] Protein, UA Negative Negative - 1999(20) ++++ mg/dL [facility] Spec Grav, UA 1.03 1 - 1.03 [facility] Urobilinogen, UA 0.2 0.2 - 12 mg/dL [facility] Urinalysis macro (dipstick) panel (U)on 04-22-2024 Bilirubin, UA Negative Negative - 4(70) +++ mg/dL [facility] Blood, UA Negative Negative - 50 Bradley/mcL [facility] Clarity, UA Clear [facility] Color, UA Yellow [facility] Glucose, UA Negative Negative - 1999(110) ++++ mg/dL [facility] Interpretation and review of laboratory results Abnormal [facility] Ketones, UA Negative Negative - 160(16) ++++ mg/dL [facility] Leukocytes, UA Trace Negative - 500+++ Gabby/mcL [facility] Nitrite, UA Negative Negative - Positive [facility] pH, UA 6 5 - 9 [facility] Protein, UA Positive Negative - 1999(20) ++++ mg/dL [facility] Comment on above: 30 Spec Grav, UA 1.025 1 - 1.03 [facility] Urobilinogen, UA 1.0 0.2 - 12 mg/dL [facility] Urinalysis macro (dipstick) panel (U)on 04-06-2024 Bilirubin, UA Negative Negative - 4(70) +++ mg/dL [facility] Blood, UA Negative Negative - 50 Bradley/mcL [facility] Clarity, UA Clear [facility] Color, UA Yellow [facility] Glucose, UA Negative Negative - 1999(110) ++++ mg/dL [facility] Interpretation and review of laboratory results Abnormal [facility] Ketones, UA Negative Negative - 160(16) ++++ mg/dL [facility] Leukocytes, UA Positive Negative - 500+++ Gabby/mcL [facility] Comment on above: small Nitrite, UA Negative Negative - Positive [facility] pH, UA 7 5 - 9 [facility] Protein, UA Negative Negative - 1999(20) ++++ mg/dL [facility] Spec Grav, UA 1.02 1 - 1.03 [facility] Urobilinogen, UA 0.2 0.2 - 12 mg/dL [facility] Urinalysis macro (dipstick) panel (U)on 03-22-2024 Bilirubin, UA Positive Negative - 4(70) +++ mg/dL [facility] Blood, UA Negative Negative - 50 Bradley/mcL [facility] Clarity, UA Clear [facility] Color, UA Yellow [facility] Glucose, UA Negative Negative - 1999(110) ++++ mg/dL [facility] Interpretation and review of laboratory results Normal [facility] Ketones, UA Positive Negative - 160(16) ++++ mg/dL [facility] Leukocytes, UA Positive Negative - 500+++ Gabby/mcL [facility] Nitrite, UA Negative Negative - Positive [facility] pH, UA 7 5 - 9 [facility] Protein, UA Positive Negative - 1999(20) ++++ mg/dL [facility] Spec Grav, UA 1.025 1 - 1.03 [facility] Urobilinogen, UA 1.0 0.2 - 12 mg/dL [facility] ALL CBC WITH AUTO DIFFon BASOPHILS ABSOLUTE AUTO 0 [facility] Basophils/100 WBC (Bld) 0.5 % 0.2 - 2.0 % [facility] Eosinophils/100 WBC (Bld) 2.4 % 0.9 - 7.0 % [facility] Erythrocyte distribution width (RBC) [Ratio] 13.2 % 11.0 - 15.0 % [facility] Hematocrit (Bld) [Volume fraction] 33.2 % Low 36.0 - 48.0 % [facility] Hemoglobin (Bld) [Mass/Vol] 11.1 g/dL Low 12.0 - 16.0 g/dL [facility] IMMATURE GRANULOCYTES ABS AUTO 0.02 [facility] Immature granulocytes/100 WBC (Bld) 0.3 % 0.0 - 0.5 % [facility] Interpretation and review of laboratory results Abnormal [facility] LYMPHOCYTES ABSOLUTE AUTO 2.1 [facility] Lymphocytes/100 WBC (Bld) 32.5 % 20.5 - 60.0 % [facility] MCH (RBC) [Entitic mass] 30.5 pg 26.7 - 34.0 pg [facility] MCHC (RBC) [Mass/Vol] 33.4 g/dL 29.9 - 35.2 g/dL [facility] MCV (RBC) [Entitic vol] 91.2 fL 81.0 - 99.0 fL [facility] MONOCYTES ABSOLUTE AUTO 0.3 [facility] Monocytes/100 WBC (Bld) 4.6 % 1.7 - 12.0 % [facility] NEUTROPHILS ABSOLUTE AUTO 3.9 [facility] Neutrophils/100 WBC (Bld) 59.7 % 43.0 - 75.0 % [facility] Platelet mean volume (Bld) [Entitic vol] 9.3 fL Low 9.5 - 13.5 fL [facility] TBH EO # 0.2 [facility] TB PLT 342 [facility] TB RBC 3.64 Low [facility] WBC 6.6 [facility] BioFire Not Detectedon 03-05 BioFire Not Detected Not detected Normal Not Detecte [facility] Comment on above: Result Comment: This is a duplicate RP2.1 COVID (PCR) result to be used for statistical tracking purpose only. PERFORMED BY: [place] [address] PATHOLOGIST AQUACULTURE PROGRAM DIRECTOR LION STANLEY M.D. Performed By: #### C BC, CMP, HCGQNT #### [address] COVID-19 Detected/Not Detect edOrdered By: Devika De La Garza on 03-05-2024 SARS-CoV-2 (COVID-19) RNA YANET+non-probe Ql (Nph) Not detected Not Detecte [facility] Comment on above: This is a duplicate RP2.1 COVID (PCR) result to be used for statistical tracking purpose only. ECG 12 lead ECGon 03-05-2024 ECG 12 lead ECG [facility] Main [place] [address] [place] [address] Electrocardiograph Report Signed Patient: Jaleesa Arrieta MR#: [id number] [birth year] : 1990 Acct:[id number] Age/Sex: 33 / F ADM Date: 03/05/24 Loc: ER Room: Type: [facility] ER Attending Dr: Ordering Provider: Devika De [...] Confirmed by DEVIKA DE LA GARZA DO ([id number]) on 03/06/2024 1:44:25 AM Referred By: Electronically Signed By: DEVIKA DE LA GARZA DO Transcribed By: MUS Signed By Devika De La Garza DO 03/06 0144 Normal [facility] Quick Strepon 03-05-2024 Quick Strep Streptococcus pyogen es Ag [Presence] in Throat by Rapid immunoassay Negative for Group A Strep Antigen Note 1 NOTE 2 Results are those of a screening test. NOTE 3 If clinically indicated please order a culture. NOTE 4 NOTE 5 Reference range = Negative PERFORMED BY: [place] [address] PATHOLOGIST AQUACULTURE PROGRAM DIRECTOR LION STANLEY M.D. Normal [facility] Comment on above: Performed By: #### Q S, RESP PANEL UPP., BIOFIRECOVNOTDE #### [address] Respiratory (Upper) Panel, P CRon 03-05-2024 [...] A H3 Blank Space ------ PERFORMED BY: [place] [address] PATHOLOGIST AQUACULTURE PROGRAM DIRECTOR LION STANLEY M.D. Normal [facility] Comment on above: Performed By: #### Q S, RESP PANEL UPP., BIOFIRECOVNOTDE #### [address] Respiratory pathogens DNA an d RNA panel - Nasopharynx by YANET with non-probe detectionOrdered By: Devika De La Garza on 03-05-2024 Respiratory pathogens DNA and RNA panel YANET+non-probe (Nph) Respiratory pathogens DNA and RNA panel - Nasopharynx by YANET with non-probe detection [facility] Respiratory pathogens DNA and RNA panel YANET+non-probe (Nph) [facility] Streptococcus pyogenes antig en detectionOrdered By: Devika De La Garza on 03-05-2024 S. pyogenes Ag Ql (Unsp spec) Streptococcus pyogenes antigen detection [facility] S. pyogenes Ag Ql (Unsp spec) [facility] XR chest 1V portableon 03-05 XR chest 1V portable [facility] Main [address] [address] XRay Report Signed Patient: Jaleesa Arrieta MR#: [id number] [birth year] : 1990 Acct:[id number] Age/Sex: 33 / F ADM Date: 03/05/24 Loc: ER Room: Type: [facility] ER Attending Dr: Copies to: Devika [...] M.D.03/05/2024 9:34 PM Dictation Location: [place] [address] Transcribed By: [facility] 03/05/242133 Dictated By: Priscilla Cunningham MD 03/05/242130 Signed By: 03/05/242133 Normal [facility] Quick Strepon 02-26-2024 Quick Strep Streptococcus pyogen es Ag [Presence] in Throat by Rapid immunoassay Negative for Group A Strep Antigen Note 1 NOTE 2 Results are those of a screening test. NOTE 3 If clinically indicated please order a culture. NOTE 4 NOTE 5 Reference range = Negative PERFORMED BY: [place] [id number] PATHOLOGIST AQUACULTURE PROGRAM DIRECTOR LION STANLEY M.D. Normal [facility] Comment on above: Performed By: #### Q S #### [facility] [address] Streptococcus pyogenes antig en detectionOrdered By: Ck To on 02-26-2024 S. pyogenes Ag Ql (Unsp spec) Streptococcus pyogenes antigen detection [facility] S. pyogenes Ag Ql (Unsp spec) [facility] Urinalysis macro (dipstick) panel (U)on 02-23-2024 Bilirubin, UA Negative Negative - 4(70) +++ mg/dL [facility] Blood, UA Negative Negative - 50 Bradley/mcL [facility] Clarity, UA Clear [facility] Color, UA Yellow [facility] Glucose, UA Negative Negative - 1999(110) ++++ mg/dL [facility] Interpretation and review of laboratory results Abnormal [facility] Ketones, UA Negative Negative - 160(16) ++++ mg/dL [facility] Leukocytes, UA Positive Negative - 500+++ Gabby/mcL [facility] Comment on above: small Nitrite, UA Negative Negative - Positive [facility] pH, UA 7 5 - 9 [facility] Protein, UA Negative Negative - 1999(20) ++++ mg/dL [facility] Spec Grav, UA 1.02 1 - 1.03 [facility] Urobilinogen, UA 0.2 0.2 - 12 mg/dL [facility] ALL THYROID STIM HORMONEon 0 01-26-2024 TSH Qn 2.645 m[IU]/L [facility] Urinalysis macro (dipstick) panel (U)on 01-20-2024 Bilirubin, UA Negative Negative - 4(70) +++ mg/dL [facility] Blood, UA Negative Negative - 50 Bradley/mcL [facility] Clarity, UA Clear [facility] Color, UA Yellow [facility] Glucose, UA Negative Negative - 1999(110) ++++ mg/dL [facility] Interpretation and review of laboratory results Abnormal [facility] Ketones, UA Negative Negative - 160(16) ++++ mg/dL [facility] Leukocytes, UA Trace Negative - 500+++ Gabby/mcL [facility] Nitrite, UA Negative Negative - Positive [facility] pH, UA 6.5 5 - 9 [facility] Protein, UA Negative Negative - 2000(20) ++++ mg/dL [facility] Spec Grav, UA 1.020 1 - 1.03 [facility] Urobilinogen, UA 0.2 0.2 - 12 mg/dL [facility] Alanine aminotransferase [En zymatic activity/volume] in Serum or PlasmaOrdered By: Marychuy Kathleenore on 10-06-2023 ALT [Catalytic activity/Vol] 13 U/L Normal 7-52 [facility] Comment on above: Performed By: #### C BC, CMP, HCGQNT #### [facility] [address] Albumin [Mass/volume] in Ser um or Plasma by Bromocresol green (BCG) dye binding methoOrdered By: Marychuymargaux Kyle on 10-06-2023 Albumin BCG dye [Mass/Vol] 3.8 g/dL 3.5-5.7 [facility] Alkaline phosphatase [Enzyma tic activity/volume] in Serum or PlasmaOrdered By: Marychuy Jeronimoimore on 10-06-2023 ALP [Catalytic activity/Vol] 61 U/L Normal 34-104 [facility] Comment on above: Performed By: #### C BC, CMP, HCGQNT #### [facility] [address] [place] [address] Aspartate aminotransferase [ Enzymatic activity/volume] in Serum or PlasmaOrdered By: Marychuy Phaniimore on 10-06-2023 AST [Catalytic activity/Vol] 13 U/L Normal 13-39 [facility] Comment on above: Performed By: #### C BC, CMP, HCGQNT #### [facility] [address] [place] [address] Automated basophil %Ordered By: Marychuy Kyle on 10-06-2023 Basophils/100 WBC (Bld) 0.6 % Normal . [facility] Comment on above: Performed By: #### C BC, CMP, HCGQNT #### [facility] [address] [place] [address] Automated basophil countOrde red By: Marychuy Kyle on 10-06-2023 Basophils (Bld) [#/Vol] 0.0 10*3/uL Normal 0.0-0.2 [facility] Comment on above: Result Comment: PERF ORMED BY: [place] [address] PATHOLOGIST AQUACULTURE PROGRAM DIRECTOR LION STANLEY M.D. Performed By: #### C BC, CMP, HCGQNT #### [address] Automated blood monocyte cou ntOrdered By: Marychuy Bullimore on 10-06-2023 Monocytes (Bld) [#/Vol] 0.5 10*3/uL Normal 0.0-0.8 [facility] Comment on above: Performed By: #### C BC, CMP, HCGQNT #### [address] Automated eosinophil %Ordere d By: Marychuy Bullimore on 10-06-2023 Eosinophils/100 WBC (Bld) 0.7 % Normal . [facility] Comment on above: Performed By: #### C BC, CMP, HCGQNT #### [address] Automated eosinophil countOr dered By: Marychuy Bullimore on 10-06-2023 Eosinophils (Bld) [#/Vol] 0.1 10*3/uL Normal 0.0-0.45 [facility] Comment on above: Performed By: #### C BC, CMP, HCGQNT #### [address] Automated epithelial cells c ount in urine sediment (number/area)Ordered By: Marychuy Bullimore on 10-06-2023 Epithelial cells Auto (Urine sed) [#/Area] 3-4 [HPF] 0-2 [facility] Automated monocyte %Ordered By: Marychuy Bullimore on 10-06-2023 Monocytes/100 WBC (Bld) 6.7 % Normal . [facility] Comment on above: Performed By: #### C BC, CMP, HCGQNT #### [address] Automated neutrophil %Ordere d By: Marychuy Bullimore on 10-06-2023 Neutrophils/100 WBC (Bld) 54.4 % Normal . [facility] Comment on above: Performed By: #### C BC, CMP, HCGQNT #### [facility] [address] Bacteria [Presence] in Urine by AutomatedOrdered By: Marychuy Bullimore on 10-06-2023 Bacteria Auto Ql (U) None seen [HPF] None Seen [facility] Bilirubin Test strip Ql (U)O rdered By: Marychuy Bullimore on 10-06-2023 Bilirubin Ql (U) Negative Negative [facility] Bilirubin.total [Mass/volume ] in Serum or PlasmaOrdered By: Marychuy Bullimore on 10-06-2023 Bilirubin [Mass/Vol] 0.2 mg/dL Low 0.3-1.0 [facility] Comment on above: Performed By: #### C BC, CMP, HCGQNT #### [facility] [address] [place] [address] [place] Calcium [Mass/volume] in Ser um or PlasmaOrdered By: Marychuy Bullimore on 10-06-2023 Calcium [Mass/Vol] 9.4 mg/dL Normal 8.6-10.3 [facility] Comment on above: Performed By: #### C BC, CMP, HCGQNT #### [facility] [address] [place] [address] [place] Carbon dioxide, total [Moles /volume] in Serum or PlasmaOrdered By: Marychuy Bullimore on 10-06-2023 CO2 [Moles/Vol] 25.5 mmol/L Normal 21.0-31.0 [facility] Comment on above: Performed By: #### C BC, CMP, HCGQNT #### [facility] [address] [place] [address] [place] Chloride [Moles/volume] in S sondra or PlasmaOrdered By: Marychuy Bullimore on 10-06-2023 Chloride [Moles/Vol] 105 mmol/L Normal 98-107 [facility] Comment on above: Performed By: #### C BC, CMP, HCGQNT #### [address] Choriogonadotropin.beta subu nit [Units/volume] in Serum or PlasmaOrdered By: Marychuy Kyle on 10-06-2023 HCG.beta subunit Qn 2799.00 m[IU]/mL [facility] Comment on above: Approximate Approxim ate hCG Gestational Age Range (mIU/ml) (weeks)0.2-1 5-50 1-2 50-500 2-3 100-5,000 3-4 500-10,000 4-5 1,000-50,000 5-6 10,000-100,000 6-8 15,000-200,000 8-12 10,000-100,000 Color of Urine by AutoOrdere d By: Marychuy Kyle on 10-06-2023 Color (U) Yellow Normal Yellow [facility] Comment on above: Order Comment: NEED MORE SPECIMEN Name Collection Type:: Clean-Voided Midstream Performed By: #### A DDONUAPLUS #### [address] Complete Blood Count Auto Di ffon 10-06-2023 Mean Corpuscular HGB Conc 34.4 g/dL Normal 32.0-35.0 [facility] Comment on above: Performed By: #### C BC, CMP, HCGQNT #### [place] [address] [place] Monocytes/100 WBC (Bld) 17.37 % Normal 0.00-20.00 [facility] Comment on above: Performed By: #### C BC, CMP, HCGQNT #### [facility] [address] [place] [address] [place] NRBC% 0.2 /100{WBC} Normal 0-0.5 [facility] Comment on above: Performed By: #### C BC, CMP, HCGQNT #### [address] Comprehensive Metabolic Pane panchito 10-06-2023 Albumin [Mass/Vol] 3.8 g/dL Normal 3.5-5.7 [facility] Comment on above: Performed By: #### C BC, CMP, HCGQNT #### [address] Creatinine Clr Calc Pharmacy 180.48 Normal [facility] Comment on above: Performed By: #### C BC, CMP, HCGQNT #### [place] [address] [place] GFR/1.73 sq M.predicted MDRD (S/P/Bld) [Vol rate/Area] mL/min/{1.73_m2} Normal [facility] Comment on above: Performed By: #### C BC, CMP, HCGQNT #### [address] Creatinine [Mass/volume] in Serum or PlasmaOrdered By: Marychuy Kyle on 10-06-2023 Creatinine [Mass/Vol] 0.63 mg/dL Normal 0.60-1.20 [facility] Comment on above: Performed By: #### C BC, CMP, HCGQNT #### [place] [address] [place] Dipstick and Microscopicon 0 10-06-2023 Appearance (U) Clear Normal Clear [facility] Comment on above: Order Comment: NEED MORE SPECIMEN Name Collection Type:: Clean-Voided Midstream Performed By: #### A DDONUAPLUS #### [place] [address] [place] Bacteria,Urine None Seen Normal None Seen [facility] Comment on above: Order Comment: NEED MORE SPECIMEN Name Collection Type:: Clean-Voided Midstream Performed By: #### A DDONUAPLUS #### [place] [address] [place] Bilirubin,Urine Negative Normal Negative [facility] Comment on above: Order Comment: NEED MORE SPECIMEN Name Collection Type:: Clean-Voided Midstream Performed By: #### A DDONUAPLUS #### [address] Glucose Ql (U) Normal Normal Normal [facility] [facility] Comment on above: Order Comment: NEED MORE SPECIMEN Name Collection Type:: Clean-Voided Midstream Performed By: #### A DDONUAPLUS #### [address] [address] [place] Hyaline Casts,Urine 0-8 Normal 0-8 [facility] Comment on above: Order Comment: NEED MORE SPECIMEN Name Collection Type:: Clean-Voided Midstream Result Comment: PERF ORMED BY: [place] [address] PATHOLOGIST AQUACULTURE PROGRAM DIRECTOR LION STANLEY M.D. Performed By: #### A DDONUAPLUS #### [place] [address] [place] Ketones Ql (U) Negative Normal Negative [facility] Comment on above: Order Comment: NEED MORE SPECIMEN Name Collection Type:: Clean-Voided Midstream Performed By: #### A DDONUAPLUS #### [place] [address] [place] Leukocyte esterase Test strip Ql (U) 1+ High Negative [facility] Comment on above: Order Comment: NEED MORE SPECIMEN Name Collection Type:: Clean-Voided Midstream Performed By: #### A DDONUAPLUS #### [place] [address] [place] Nitrite,Urine Negative Normal Negative [facility] Comment on above: Order Comment: NEED MORE SPECIMEN Name Collection Type:: Clean-Voided Midstream Performed By: #### A DDONUAPLUS #### [place] [id number] [place] Occult Blood,Urine Negative Normal Negative [facility] Comment on above: Order Comment: NEED MORE SPECIMEN Name Collection Type:: Clean-Voided Midstream Result Comment: PERF ORMED BY: [place] [address] PATHOLOGIST AQUACULTURE PROGRAM DIRECTOR LION STANLEY M.D. Performed By: #### A DDONUAPLUS #### [place] [id number] [place] Protein,Urine Negative Normal Negative [facility] Comment on above: Order Comment: NEED MORE SPECIMEN Name Collection Type:: Clean-Voided Midstream Performed By: #### A DDONUAPLUS #### [place] [address] [place] RBC LM.HPF (Urine sed) [#/Area] 0 /[HPF] Normal 0-4 [facility] Comment on above: Order Comment: NEED MORE SPECIMEN Name Collection Type:: Clean-Voided Midstream Performed By: #### A DDONUAPLUS #### [address] Specificy [place],Urine 1.017 Normal 1.001-1.030 [facility] Comment on above: Order Comment: NEED MORE SPECIMEN Name Collection Type:: Clean-Voided Midstream Performed By: #### A DDONUAPLUS #### [address] Squamous Epithelial Cell,Urine 3-4 High 0-2 [facility] Comment on above: Order Comment: NEED MORE SPECIMEN Name Collection Type:: Clean-Voided Midstream Performed By: #### A DDONUAPLUS #### [address] Urobilinogen,Urine Normal Normal Normal [facility] Comment on above: Order Comment: NEED MORE SPECIMEN Name Collection Type:: Clean-Voided Midstream Performed By: #### A DDONUAPLUS #### [place] [address] [place] WBC,Urine 3-4 Normal 0-4 [facility] Comment on above: Order Comment: NEED MORE SPECIMEN Name Collection Type:: Clean-Voided Midstream Performed By: #### A DDONUAPLUS #### [place] [address] [place] Erythrocyte distribution wid th [Ratio] by Automated countOrdered By: Marychuy Kyle on 10-06-2023 Erythrocyte distribution width (RBC) [Ratio] 13.4 % Normal 11.9-15.3 [facility] Comment on above: Performed By: #### C BC, CMP, HCGQNT #### [facility] [address] [id number] [facility] Erythrocytes [#/area] in Uri ne sediment by Automated countOrdered By: Marychuy Kyle on 10-06-2023 RBC Auto (Urine sed) [#/Area] 0-1 [HPF] 0-4 [facility] Erythrocytes [#/volume] in B lood by Automated countOrdered By: Marychuy Wangore on 10-06-2023 RBC (Bld) [#/Vol] 4.08 10*6/uL Normal 3.60-5.00 [facility] Comment on above: Performed By: #### C BC, CMP, HCGQNT #### [address] Glucose [Mass/volume] in Ser um or PlasmaOrdered By: Marychuy Jeronimoimore on 10-06-2023 Glucose [Mass/Vol] 100 mg/dL Normal 70-100 [facility] Comment on above: ADA recommended refe rence rangeRandom Glucose Reference Range is dependent on time and content of last meal. Glucose of more than 200 mg/dL in a nonstressed, ambulatory subject supports the diagnosis of Diabetes Mellitus. Result Comment: [place] om Glucose Reference Range is dependent on time and content of last meal. Glucose of more than 200 mg/dL in a nonstressed, ambulatory subject supports the diagnosis of Diabetes Mellitus. ADA recommended reference range Performed By: #### C BC, CMP, HCGQNT #### [facility] [address] [place], [place] [id number] [facility] HCG,Quantitativeon HCG,Quantitative 2799.00 m[iU]/mL Normal [facility] Comment on above: Result Comment: Appr oximate Approximate hCG Gestational Age Range (mIU/ml) (weeks) 0.2-1 5-50 1-2 50-500 2-3 100-5,000 3-4 500-10,000 4-5 1,000-50,000 5-6 10,000-100,000 6-8 15,000-200,000 8-12 10,000-100,000 PERFORMED BY: [address] [address] PATHOLOGIST AQUACULTURE PROGRAM DIRECTOR LION STANLEY M.D. Performed By: #### C BC, CMP, HCGQNT #### [facility] [address] Hematocrit [Volume Fraction] of Blood by Automated countOrdered By: Marychuy Kyle on 10-06-2023 Hematocrit (Bld) [Volume fraction] 36.7 % Normal 34.0-46.4 [facility] Comment on above: Performed By: #### C BC, CMP, HCGQNT #### [facility] [address] Hemoglobin [Mass/volume] in BloodOrdered By: Marychuy Kyle on 10-06-2023 Hemoglobin (Bld) [Mass/Vol] 12.6 g/dL Normal 11.8-15.4 [facility] Comment on above: Performed By: #### C BC, CMP, HCGQNT #### [facility] [address] [place] [address] Ketones Auto test strip (U) [Mass/Vol]Ordered By: Marychuy Kyle on 10-06-2023 Ketones (U) [Mass/Vol] Negative Negative [facility] - UrinalysisOrder ed By: Marychuy Kyle on 10-06-2023 Hyaline casts LM Ql (Urine sed) 0-8 [LPF] 0-8 [facility] Leukocytes [#/area] in Urine sediment by Automated countOrdered By: Marychuy Kyle on 10-06-2023 WBC Auto (Urine sed) [#/Area] 3-4 [HPF] 0-4 [facility] Leukocytes [#/volume] correc inocencia for nucleated erythrocytes in Blood by Automated counOrdered By: Marychuy Kyle on 10-06-2023 WBC corrected for nucl RBC Auto (Bld) [#/Vol] 7.4 10*3/uL 3.8-11.6 [facility] Leukocytes [#/volume] in Blo od by Automated countOrdered By: Marychuy Kyle on 10-06-2023 WBC (Bld) [#/Vol] 7.4 10*3/uL Normal 3.8-11.6 [facility] Comment on above: Performed By: #### C BC, CMP, HCGQNT #### [facility] [address] [place] [address] Lymphocytes [#/volume] in Bl ood by Automated countOrdered By: Marychuy Bullimore on 10-06-2023 Lymphocytes (Bld) [#/Vol] 2.8 10*3/uL Normal 1.00-4.8 [facility] Comment on above: Performed By: #### C BC, CMP, HCGQNT #### [address] Lymphocytes/100 leukocytes i n Blood by Automated countOrdered By: Marychuy Bullimore on 10-06-2023 Lymphocytes/100 WBC (Bld) 37.6 % Normal . [facility] Comment on above: Performed By: #### C BC, CMP, HCGQNT #### [facility] [address] [place] [address] MCH [Entitic mass] by Automa inocencia countOrdered By: Marychuy Bullimore on 10-06-2023 MCH (RBC) [Entitic mass] 31.0 pg Normal 24.7-34.3 [facility] Comment on above: Performed By: #### C BC, CMP, HCGQNT #### [address] MCHC Auto (RBC) [Mass/Vol]Or dered By: Marychuy Bullimore on 10-06-2023 MCHC (RBC) [Mass/Vol] 34.4 g/dL 32.0-35.0 [facility] MCV [Entitic volume] by Auto mated countOrdered By: Marychuy Phaniimore on 10-06-2023 MCV (RBC) [Entitic vol] 90.1 fL Normal 80-100 [facility] Comment on above: Performed By: #### C BC, CMP, HCGQNT #### [address] Monocyte distribution width [Entitic volume] in Blood by AutomatedOrdered By: Marychuy Bullimore on 10-06-2023 Monocyte distribution width Auto (Bld) [Entitic vol] 17.37 % 0.00-20.00 [facility] Neutrophils [#/volume] in Bl ood by Automated countOrdered By: Marychuy Kyle on 10-06-2023 Neutrophils (Bld) [#/Vol] 4.0 10*3/uL Normal 1.8-7.7 [facility] Comment on above: Performed By: #### C BC, CMP, HCGQNT #### [facility] [address] Nitrite Test strip Ql (U)Ord ered By: Marychuy Kyle on 10-06-2023 Nitrite Ql (U) Negative Negative [facility] No Panel InformationOrdered By: Marychuy Kyle on 10-06-2023 Estimated GFR (CKD-EPI) > 60.0 mL/Min [facility] Creatinine Clearance (Chem 180.48 [facility] Nucleated erythrocytes [Pres ence] in Blood by Automated countOrdered By: Marychuy Kyle on 10-06-2023 Nucleated RBC Auto Ql (Bld) 0.2 /100{WBC} 0-0.5 [facility] Platelet mean volume [Entiti c volume] in Blood by Automated countOrdered By: Marychuy Kyle on 10-06-2023 Platelet mean volume (Bld) [Entitic vol] 7.5 fL Normal 6.3-10.7 [facility] Comment on above: Performed By: #### C BC, CMP, HCGQNT #### [facility] [address] Platelets [#/volume] in Bloo d by Automated countOrdered By: Marychuy Kyle on 10-06-2023 Platelets (Bld) [#/Vol] 367 10*3/uL Normal 150-450 [facility] Comment on above: Performed By: #### C BC, CMP, HCGQNT #### [facility] [address] [place] [address] [place] Potassium [Moles/volume] in Serum or PlasmaOrdered By: Marychuy Kyle on 10-06-2023 Potassium [Moles/Vol] 4.1 mmol/L Normal 3.5-5.1 [facility] Comment on above: Performed By: #### C BC, CMP, HCGQNT #### [address] Protein Auto test strip (U) [Mass/Vol]Ordered By: Marychuy Bullimore on 10-06-2023 Protein (U) [Mass/Vol] Negative Negative [facility] Protein [Mass/volume] in Ser um or PlasmaOrdered By: Marychuy Bullimore on 10-06-2023 Protein [Mass/Vol] 7.4 g/dL Normal 6.4-8.9 [facility] Comment on above: Performed By: #### C BC, CMP, HCGQNT #### [address] Serum globulin measurement b y calculation (mass/volume)Ordered By: Marychuy Bullimore on 10-06-2023 Globulin (S) [Mass/Vol] 3.6 g/dL [facility] Comment on above: Performed By: #### C BC, CMP, HCGQNT #### [address] Serum or plasma albumin/glob ulin mass ratioOrdered By: Marychuy Bullimore on 10-06-2023 Albumin/Globulin [Mass ratio] 1.1 {ratio} [facility] Comment on above: Performed By: #### C BC, CMP, HCGQNT #### [address] Serum or plasma anion gap de terminationOrdered By: Marychuy Bullimore on 10-06-2023 Anion gap [Moles/Vol] 12.6 mmol/L Normal 6.0-15.0 [place] Comment on above: Performed By: #### C BC, CMP, HCGQNT #### [address] Sodium [Moles/volume] in Ser um or PlasmaOrdered By: Marychuy Bullimore on 05-27-2024 Sodium [Moles/Vol] 139 mmol/L Normal 136-145 [facility] Comment on above: Performed By: #### C BC, CMP, HCGQNT #### [facility] [address] [place] [address] Specific gravity Auto test s trip (U) [Rel density]Ordered By: Marychuy Kyle on 10-06-2023 Specific gravity (U) [Rel density] 1.017 1.001-1.030 [facility] Urea nitrogen [Mass/volume] in Serum or PlasmaOrdered By: Marychuy Kyle on 10-06-2023 Urea nitrogen [Mass/Vol] 7 mg/dL Normal 7-25 [facility] Comment on above: Performed By: #### C BC, CMP, HCGQNT #### [address] Urine clarity by refractomet ry automatedOrdered By: Marychuy Kyle on 10-06-2023 Clarity Refractometry automated (U) Clear Clear [facility] Urine glucose measurement by automated test strip (mass/volume)Ordered By: Marychuy Kyle on 10-06-2023 Glucose Auto test strip (U) [Mass/Vol] Normal mg/dL Normal [facility] Urine hemoglobin detection b y automated test stripOrdered By: Marychuy Kyle on 10-06-2023 Hemoglobin Auto test strip Ql (U) Negative Negative [facility] Urine leukocyte esterase det ection by automated test stripOrdered By: Marychuy Kyle on 10-06-2023 Leukocyte esterase Auto test strip Ql (U) 1+ Negative [facility] Urine pH measurement by auto mated test stripOrdered By: Marychuy Kyle on 10-06-2023 pH (U) 7.0 [pH] Normal 5.0-9.0 [facility] Comment on above: Order Comment: NEED MORE SPECIMEN Name Collection Type:: Clean-Voided Midstream Performed By: #### A DDONUAPLUS #### [address] Urobilinogen Auto test strip (U) [Mass/Vol]Ordered By: Marychuy Kyle on 05-27-2024 Urobilinogen (U) [Mass/Vol] Normal mg/dL Normal [facility] Basia 09-11-2023 LIZ Telephone (MOGEN) -------- JALEESA ARRIETA ([id number]) 1990 F Date Time Provider Department 09/11/23 [...] Status:Closed by TONYA SENIOR on 09/23/23 Normal [facility] NICOTINE AND METAB, URon URIN ANABASINE QUANT <5 Normal [facility] Comment on above: Order Comment: Speci men Type: URINE SPECIMEN Ordering Facility: [facility] Address: [address] [place] [address] Performed By: #### U NICOT #### [facility] CLIA [id number] [address] [place] [address] URIN COTININE QUANT <15 Normal [facility] Comment on above: Order Comment: Speci men Type: URINE SPECIMEN Ordering Facility: [facility] Address: [address] [place] [address] Performed By: #### U NICOT #### [facility] CLIA [id number] [address] [place] [address] URIN NICOTINE QUANT <15 Normal [facility] Comment on above: Order Comment: Speci men Type: URINE SPECIMEN Ordering Facility: [facility] Address: [address] [place] [address] Result Comment: INTE RPRETIVE INFORMATION: Nicotine and Metabolites, Urine, Quantitative Methodology: Quantitative Liquid Chromatography-Tandem Mass Spectrometry Positive cutoff: Nicotine 15 ng/mL Cotinine 15 ng/mL 3-ET-Cagzjqsb 50 ng/mL Anabasine 5 ng/mL For medical [...] developed and its performance characteristics determined by [facility]. It has not been cleared or approved by the [place] Food and Drug Administration. This test was performed in a CLIA certified laboratory and is intended for clinical purposes. Performed By: [facility] [address] [place] [address] Tank Car Inspector: Rex Zuleta MD, PhD CLIA Number: [id number] Performed By: #### U NICOT #### [facility] CLIA [id number] [address] [place] [address] URINE 3 [place] COTININE <50 Normal [facility] Comment on above: Order Comment: Speci men Type: URINE SPECIMEN Ordering Facility: [facility] Address: [address] [place] [address] Performed By: #### U NICOT #### [facility] CLIA [id number] [address] [place] [address] TOXICOLOGY SCREEN, ROUTINE U RINEon 09-08-2023 Amphetamines Confirm (U) [Mass/Vol] Negative Normal Negative [facility] Comment on above: Order Comment: Speci men Type: URINE SPECIMEN Ordering Facility: [facility] Address: [address] [place] [address] Result Comment: Cuto ff threshold at 1000 ng/mL. Performed By: #### U TOX2 #### [facility] CLIA [id number] [address] [place] [address] [place] BARBITURATES, URINE Negative Normal Negative [facility] Comment on above: Order Comment: Speci men Type: URINE SPECIMEN Ordering Facility: [facility] Address: [address] [place] [address] Result Comment: Cuto ff threshold at 200 ng/mL. Performed By: #### U TOX2 #### [facility] CLIA [id number] [address] [place] [address] [place] BENZODIAZEPINES, UR Negative Normal Negative [facility] Comment on above: Order Comment: Speci men Type: URINE SPECIMEN Ordering Facility: [facility] Address: [address] [place] [address] Result Comment: Cuto ff threshold at 200 ng/mL. Performed By: #### U TOX2 #### [facility] CLIA [id number] [address] [place] [address] [place] Cannabinoids Screen Ql (U) Negative Normal Negative [facility] Comment on above: Order Comment: Speci men Type: URINE SPECIMEN Ordering Facility: [facility] Address: [address] [place] [address] Result Comment: Cuto ff threshold at 50 ng/mL. Performed By: #### U TOX2 #### [facility] CLIA [id number] [address] [place] [address] [place] Cocaine Ql (U) Negative Normal Negative [facility] Comment on above: Order Comment: Speci men Type: URINE SPECIMEN Ordering Facility: [facility] Address: [address] [place] [address] Result Comment: Cuto ff threshold at 300 ng/mL. Performed By: #### U TOX2 #### [facility] CLIA [id number] [address] [place] [address] [place] Ethanol (U) [Mass/Vol] <11 Normal <11 [facility] Comment on above: Order Comment: Speci men Type: URINE SPECIMEN Ordering Facility: [facility] Address: [address] [place] [address] Performed By: #### U TOX2 #### [facility] CLIA [id number] [address] [place] [address] [place] Opiates Screen Ql (U) Negative Normal Negative [facility] Comment on above: Order Comment: Speci men Type: URINE SPECIMEN Ordering Facility: [facility] Address: [address] [place] [address] Result Comment: Cuto ff threshold at 300 ng/mL. Performed By: #### U TOX2 #### [facility] CLIA [id number] [address] [place] [address] [place] oxyCODONE cutoff Screen (U) [Mass/Vol] Negative Normal Negative [facility] Comment on above: Order Comment: Speci men Type: URINE SPECIMEN Ordering Facility: [facility] Address: [address] [place] [address] Result Comment: Cuto ff threshold at 100 ng/mL. Performed By: #### U TOX2 #### [facility] CLIA [id number] [address] [place] [address] [place] Phencyclidine Ql (U) Negative Normal Negative [facility] Comment on above: Order Comment: Speci men Type: URINE SPECIMEN Ordering Facility: [facility] Address: [address] [place] [address] Result Comment: Cuto ff threshold at 25 ng/mL. Performed By: #### U TOX2 #### [facility] CLIA [id number] [address] [place] [address] [place] 25(OH)D3 SerPl-mCncon 2023 25-hydroxyvitamin D3 [Mass/Vol] 11.9 ng/mL Low 31.0-80.0 [facility] Comment on above: Order Comment: Speci men Type: BLOOD SPECIMEN Ordering Facility: [facility] Address: [address] [place] [address] Performed By: #### 2 276-4, 2132-01, 2283-12 #### [facility] CLIA [id number] [address] [place] [address] [place] CBC W Auto Differential pane l (Bld)on 09-05-2023 Basophils (Bld) [#/Vol] 10*3/uL Normal <0.11 [facility] Comment on above: Order Comment: Speci men Type: BLOOD SPECIMEN Ordering Facility: [facility] Address: [address] [place] [address] Performed By: #### 2 276-4, 2132-01, 2283-12 #### [facility] CLIA [id number] [address] [place] [address] [place] Basophils/100 WBC (Bld) 0.3 % Normal [facility] Comment on above: Order Comment: Speci men Type: BLOOD SPECIMEN Ordering Facility: [facility] Address: [address] [place] [address] Performed By: #### 2 276-4, 2132-01, 2283-12 #### [facility] CLIA [id number] [address] [place] [address] [place] Differential cell count method Nom (Bld) Auto Normal [facility] Comment on above: Order Comment: Speci men Type: BLOOD SPECIMEN Ordering Facility: [facility] Address: [address] [place] [address] Performed By: #### 2 276-4, 2132-01, 2283-12 #### [facility] CLIA [id number] [address] [place] [address] [place] Eosinophils (Bld) [#/Vol] 0.09 10*3/uL Normal <0.46 [facility] Comment on above: Order Comment: Speci men Type: BLOOD SPECIMEN Ordering Facility: [facility] Address: [address] [place] [address] Performed By: #### 2 276-4, 2132-01, 2283-12 #### [facility] CLIA [id number] [address] [place] [address] [place] Eosinophils/100 WBC (Bld) 1.3 % Normal [facility] Comment on above: Order Comment: Speci men Type: BLOOD SPECIMEN Ordering Facility: [facility] Address: [address] [place] [address] Performed By: #### 2 276-4, 2132-01, 2283-12 #### [facility] CLIA [id number] [address] [place] [address] [place] Erythrocyte distribution width (RBC) [Ratio] 12.6 % Normal 11.5-15.0 [facility] Comment on above: Order Comment: Speci men Type: BLOOD SPECIMEN Ordering Facility: [facility] Address: [address] [place] [address] Performed By: #### 2 276-4, 2132-01, 2283-12 #### [facility] CLIA [id number] [address] [place] [address] [place] Hematocrit (Bld) [Volume fraction] 38.0 % Normal 36.0-46.0 [facility] Comment on above: Order Comment: Speci men Type: BLOOD SPECIMEN Ordering Facility: [facility] Address: [address] [place] [address] Performed By: #### 2 276-4, 2132-01, 2283-12 #### [facility] CLIA [id number] [address] [place] [address] [place] Hemoglobin (Bld) [Mass/Vol] 12.8 g/dL Normal 11.5-15.5 [facility] Comment on above: Order Comment: Speci men Type: BLOOD SPECIMEN Ordering Facility: [facility] Address: [address] [place] [address] Performed By: #### 2 276-4, 2132-01, 2283-12 #### [facility] CLIA [id number] [address] [place] [address] [place] Immature granulocytes (Bld) [#/Vol] 10*3/uL Normal <0.10 [facility] Comment on above: Order Comment: Speci men Type: BLOOD SPECIMEN Ordering Facility: [facility] Address: [address] [place] [address] Performed By: #### 2 276-4, 2132-01, 2283-12 #### [facility] CLIA [id number] [address] [place] [address] [place] Immature granulocytes/100 WBC (Bld) 0.1 % Normal [facility] Comment on above: Order Comment: Speci men Type: BLOOD SPECIMEN Ordering Facility: [facility] Address: [address] [place] [address] Performed By: #### 2 276-4, 2132-01, 2283-12 #### [facility] CLIA [id number] [address] [place] [address] [place] Lymphocytes (Bld) [#/Vol] 3.49 10*3/uL Normal 1.00-4.00 [facility] Comment on above: Order Comment: Speci men Type: BLOOD SPECIMEN Ordering Facility: [facility] Address: [address] [place] [address] Performed By: #### 2 276-4, 2132-01, 2283-12 #### [facility] CLIA [id number] [address] [place] [address] [place] Lymphocytes/100 WBC (Bld) 48.6 % Normal [facility] Comment on above: Order Comment: Speci men Type: BLOOD SPECIMEN Ordering Facility: [facility] Address: [address] [place] [address] Performed By: #### 2 276-4, 2132-01, 2283-12 #### [facility] CLIA [id number] [address] [place] [address] [place] MCH (RBC) [Entitic mass] 30.0 pg Normal 26.0-34.0 [facility] Comment on above: Order Comment: Speci men Type: BLOOD SPECIMEN Ordering Facility: [facility] Address: [address] [place] [address] Performed By: #### 2 276-4, 2132-01, 2283-12 #### [facility] CLIA [id number] [address] [place] [address] [place] MCHC (RBC) [Mass/Vol] 33.7 g/dL Normal 30.5-36.0 [facility] Comment on above: Order Comment: Speci men Type: BLOOD SPECIMEN Ordering Facility: [facility] Address: [address] [place] [address] Performed By: #### 2 276-4, 2132-01, 2283-12 #### [facility] CLIA [id number] [address] [place] [address] [place] MCV (RBC) [Entitic vol] 89.2 fL Normal 80.0-100.0 [facility] Comment on above: Order Comment: Speci men Type: BLOOD SPECIMEN Ordering Facility: [facility] Address: [address] [place] [address] Performed By: #### 2 276-4, 2132-01, 2283-12 #### [facility] CLIA [id number] [address] [place] [address] [place] Monocytes (Bld) [#/Vol] 0.48 10*3/uL Normal <0.87 [facility] Comment on above: Order Comment: Speci men Type: BLOOD SPECIMEN Ordering Facility: [facility] Address: [address] [place] [address] Performed By: #### 2 276-4, 2132-01, 2283-12 #### [facility] CLIA [id number] [address] [place] [address] [place] Monocytes/100 WBC (Bld) 6.7 % Normal [facility] Comment on above: Order Comment: Speci men Type: BLOOD SPECIMEN Ordering Facility: [facility] Address: [address] [place] [address] Performed By: #### 2 276-4, 9, 2283-12 #### [facility] CLIA [id number] [address] [place] [address] [place] Neutrophils (Bld) [#/Vol] 3.09 10*3/uL Normal 1.45-7.50 [facility] Comment on above: Order Comment: Speci men Type: BLOOD SPECIMEN Ordering Facility: [facility] Address: [address] [place] [address] Performed By: #### 2 276-4, 2132-01, 2283-12 #### [facility] CLIA [id number] [address] [place] [address] [place] Neutrophils/100 WBC (Bld) 43.0 % Normal [facility] Comment on above: Order Comment: Speci men Type: BLOOD SPECIMEN Ordering Facility: [facility] Address: [address] [place] [address] Performed By: #### 2 276-4, 2132-01, 2283-12 #### [facility] CLIA [id number] [address] [place] [address] [place] Nucleated RBC (Bld) [#/Vol] 10*3/uL Normal <0.01 [facility] Comment on above: Order Comment: Speci men Type: BLOOD SPECIMEN Ordering Facility: [facility] Address: [address] [place] [address] Performed By: #### 2 276-4, 2132-01, 2283-12 #### [facility] CLIA [id number] [address] [place] [address] [place] Nucleated RBC/100 WBC (Bld) [Ratio] 0.0 /100 WBC Normal [facility] Comment on above: Order Comment: Speci men Type: BLOOD SPECIMEN Ordering Facility: [facility] Address: [address] [place] [address] Performed By: #### 2 276-4, 2132-01, 2283-12 #### [facility] CLIA [id number] [address] [place] [address] [place] Platelet mean volume (Bld) [Entitic vol] 9.2 fL Normal 9.0-12.7 [facility] Comment on above: Order Comment: Speci men Type: BLOOD SPECIMEN Ordering Facility: [facility] Address: [address] [place] [address] Performed By: #### 2 276-4, 2132-01, 2283-12 #### [facility] CLIA [id number] [address] [place] [address] [place] Platelets (Bld) [#/Vol] 361 10*3/uL Normal 150-400 [facility] Comment on above: Order Comment: Speci men Type: BLOOD SPECIMEN Ordering Facility: [facility] Address: [address] [place] [address] Performed By: #### 2 276-4, 2132-01, 2283-12 #### [facility] CLIA [id number] [address] [place] [address] [place] RBC (Bld) [#/Vol] 4.26 10*6/uL Normal 3.90-5.20 [facility] Comment on above: Order Comment: Speci men Type: BLOOD SPECIMEN Ordering Facility: [facility] Address: [address] [place] [address] Performed By: #### 2 276-4, 2132-01, 2283-12 #### [facility] CLIA [id number] [address] [place] [address] [place] WBC (Bld) [#/Vol] 7.18 10*3/uL Normal 3.70-11.00 [facility] Comment on above: Order Comment: Speci men Type: BLOOD SPECIMEN Ordering Facility: [facility] Address: [address] [place] [address] Performed By: #### 2 276-4, 2132-9, 2284-8 #### [facility] CLIA [id number] [address] [place] [address] [place] [address] [place] Comprehensive metabolic 2000 panelon 09-05-2023 Albumin [Mass/Vol] 4.0 g/dL Normal 3.9-4.9 [facility] Comment on above: Order Comment: Speci men Type: BLOOD SPECIMEN Ordering Facility: [facility] Address: [address] [place] [address] Performed By: #### 2 4323-8 #### [facility] CLIA [id number] [address] [place] [address] ALP [Catalytic activity/Vol] 91 U/L Normal 34-123 [facility] Comment on above: Order Comment: Speci men Type: BLOOD SPECIMEN Ordering Facility: [facility] Address: [address] [place] [address] Performed By: #### 2 4323-8 #### [facility] CLIA [id number] [address] [place] [address] ALT [Catalytic activity/Vol] 15 U/L Normal 7-38 [facility] Comment on above: Order Comment: Speci men Type: BLOOD SPECIMEN Ordering Facility: [facility] Address: [address] [place] [address] Performed By: #### 2 4323-8 #### [facility] CLIA [id number] [address] [place] [address] Anion gap [Moles/Vol] 10 mmol/L Normal 9-18 [facility] Comment on above: Order Comment: Speci men Type: BLOOD SPECIMEN Ordering Facility: [facility] Address: [address] [place] [address] Performed By: #### 2 4323-8 #### [facility] CLIA [id number] [address] [place] [address] AST [Catalytic activity/Vol] 13 U/L Normal 13-35 [facility] Comment on above: Order Comment: Speci men Type: BLOOD SPECIMEN Ordering Facility: [facility] Address: [address] [place] [address] Performed By: #### 2 4323-8 #### [facility] CLIA [id number] [address] [place] [address] Bilirubin [Mass/Vol] 0.3 mg/dL Normal 0.2-1.3 [facility] Comment on above: Order Comment: Speci men Type: BLOOD SPECIMEN Ordering Facility: [facility] Address: [address] [place] [address] Performed By: #### 2 4323-8 #### [facility] CLIA [id number] [address] [place] [address] Calcium [Mass/Vol] 9.5 mg/dL Normal 8.5-10.2 [facility] Comment on above: Order Comment: Speci men Type: BLOOD SPECIMEN Ordering Facility: [facility] Address: [address] [place] [address] Performed By: #### 2 4323-8 #### [facility] CLIA [id number] [address] [place] [address] Chloride [Moles/Vol] 106 mmol/L High 97-105 [facility] Comment on above: Order Comment: Speci men Type: BLOOD SPECIMEN Ordering Facility: [facility] Address: [address] [place] [address] Performed By: #### 2 4323-8 #### [facility] CLIA [id number] [address] [place] [address]38 CO2 [Moles/Vol] 26 mmol/L Normal 22-30 [facility] Comment on above: Order Comment: Speci men Type: BLOOD SPECIMEN Ordering Facility: [facility] Address: [address] [place] [address] Performed By: #### 2 4323-8 #### [facility] CLIA [id number] [address] [place] [address] Creatinine [Mass/Vol] 0.75 mg/dL Normal 0.58-0.96 [facility] Comment on above: Order Comment: Speci men Type: BLOOD SPECIMEN Ordering Facility: [facility] Address: [address] [id number] Performed By: #### 2 4323-8 #### [facility] CLIA [id number] [address] [place] [address] Creatinine and Glomerular filtration rate.predicted panel (S/P/Bld) 109 mL/min/1.73m??? Normal >=60 [facility] Comment on above: Order Comment: Speci men Type: BLOOD SPECIMEN Ordering Facility: [facility] Address: [address] [place] [address] Result Comment: Stephani mated Glomerular Filtration Rate [...] [facility] CLIA [id number] [address] [place] [address] Glucose [Mass/Vol] 104 mg/dL High 74-99 [facility] Comment on above: Order Comment: Speci men Type: BLOOD SPECIMEN Ordering Facility: [facility] Address: [address] [id number] Result Comment: The [place] Diabetes Association (ADA) provides guidance for cutoff [...] Standards of Medical Care in Diabetes 2016, [place] [employer]. Diabetes Care. 2016.39(Suppl 1). Performed By: #### 2 4323-8 #### [facility] CLIA [id number] [address] [place] [address] Potassium [Moles/Vol] 4.2 mmol/L Normal 3.7-5.1 [facility] Comment on above: Order Comment: Speci men Type: BLOOD SPECIMEN Ordering Facility: [facility] Address: [address] [place] [address] Performed By: #### 2 4323-8 #### [facility] CLIA [id number] [address] [place] [address] Protein [Mass/Vol] 7.4 g/dL Normal 6.3-8.0 [facility] Comment on above: Order Comment: Speci men Type: BLOOD SPECIMEN Ordering Facility: [facility] Address: [address] [place] [address] Performed By: #### 2 4323-8 #### [facility] CLIA [id number] [address] [place] [address] Sodium [Moles/Vol] 142 mmol/L Normal 136-144 [facility] Comment on above: Order Comment: Speci men Type: BLOOD SPECIMEN Ordering Facility: [facility] Address: [address] [place] [address] Performed By: #### 2 4323-8 #### [facility] CLIA [id number] [address] [place] [address] Urea nitrogen [Mass/Vol] 12 mg/dL Normal 7-21 [facility] Comment on above: Order Comment: Speci men Type: BLOOD SPECIMEN Ordering Facility: [facility] Address: [address] [place] [address] Performed By: #### 2 4323-8 #### [facility] CLIA [id number] [address] [place], [place] [address] Ferritin SerPl-mCncon 2023 Ferritin [Mass/Vol] 86.7 ng/mL Normal 14.7-205.1 [facility] Comment on above: Order Comment: Laury bradshaw Type: BLOOD SPECIMEN Ordering Facility: [facility] Address: [address] [place] [address] Performed By: #### 2 276-4, 9, 8 #### [facility] CLIA [id number] [address] [place] [address] [place] Folate SerPl-mCncon 09-05-19 Folate [Mass/Vol] 12.0 ng/mL Normal >4.7 [facility] Comment on above: Order Comment: Laury bradshaw Type: BLOOD SPECIMEN Ordering Facility: [facility] Address: [address] [place] [address] Performed By: #### 2 276-4, 2132-01, 2283-12 #### [facility] CLIA [id number] [address] [place] [address] [place] H. pylori IgG IA Qlon 2023 H. PYLORI IGG, QUAL Negative Normal Negative [facility] Comment on above: Order Comment: Laury bradshaw Type: BLOOD SPECIMEN Ordering Facility: [facility] Address: [address] [place] [address] Result Comment: Cash ot exclude H. pylori infection if the specimen collected 3-4 weeks after onset of symptoms. Performed By: #### 2 276-4, 9, 2283-12 #### [facility] CLIA [id number] [address] [place] [address] [place] HbA1c (Bld)on 09-05-2023 Average glucose Estimated from glycated hemoglobin (Bld) [Mass/Vol] 108 mg/dL Normal [facility] Comment on above: Order Comment: Speci men Type: BLOOD SPECIMEN Ordering Facility: [facility] Address: [address] [place] [address] Result Comment: eAG: (Estimated average glucose) is a calculated value from HgbA1c and is senior human resources representative of the average blood glucose level in the last 2-3 month period. Performed By: #### 5 5454-3 #### [facility] CLIA [id number] [address] [place] [address] [place] HbA1c (Bld) [Mass fraction] 5.4 % Normal 4.3-5.6 [facility] Comment on above: Order Comment: Laury bradshaw Type: BLOOD SPECIMEN Ordering Facility: [facility] Address: [address] [place] [address] Result Comment: [place] Diabetes Association guidelines indicate that patients with HgbA1c in the range 5.7-6.4% are at increased risk for development of diabetes, and intervention by lifestyle modification may be beneficial. HgbA1c greater or equal to 6.5% is considered diagnostic of diabetes. Performed By: #### 5 5454-3 #### [facility] CLIA [id number] [address] [place] [address] [place] Iron and Iron binding capaci ty panelon 09-05-2023 Iron [Mass/Vol] 94 ug/dL Normal 41-186 [facility] Comment on above: Order Comment: Laury bradshaw Type: BLOOD SPECIMEN Ordering Facility: [facility] Address: [address] [place] [address] Performed By: #### 5 0190-8, 3016-3, 24977-1 #### [facility] CLIA [id number] [address] [place] [address] [place] #### 58362-2 #### [facility] CLIA [id number] [address] [place] [address] [place] [facility] CLIA [id number] [address] [place] [address] Iron binding capacity [Mass/Vol] 310 ug/dL Normal 232-386 [facility] Comment on above: Order Comment: Speci men Type: BLOOD SPECIMEN Ordering Facility: [facility] Address: [address] [place] [address] Performed By: #### 5 0190-8, 3016-3, 39652-0 #### [facility] CLIA [id number] [address] [place] [address] [place] #### 93369-9 #### [facility] CLIA [id number] [address] [place] [address] LAB CLIA [id number] [address] [place] [address] Iron/TIBC [Molar ratio] 30.3 % Normal 15.0-57.0 [facility] Comment on above: Order Comment: Speci men Type: BLOOD SPECIMEN Ordering Facility: [facility] Address: [address] [place] [address] Performed By: #### 5 0190-8, 3016-3, 51737-9 #### [facility] CLIA [id number] [address] [place] [address] [place] #### 47427-0 #### [facility] CLIA [id number] [address] [place] [address] OF [facility] CLIA [id number] [address] [place] [address] Lipid 1996 panelon 4 Cholesterol [Mass/Vol] 179 mg/dL Normal <200 [facility] Comment on above: Order Comment: Speci men Type: BLOOD SPECIMEN Ordering Facility: [facility] Address: [address] [place] [address] Result Comment: <200 mg/dL, Desirable 200-239 mg/dL, Borderline high >239 mg/dL, High Performed By: #### 2 276-4, 2132-9, 2284-8 #### [facility] CLIA [id number] [address] [place] [address] [place] Cholesterol in HDL [Mass/Vol] 45 mg/dL Normal >39 [facility] Comment on above: Order Comment: Laury augustine Type: BLOOD SPECIMEN Ordering Facility: [facility] Address: [address] [place] [address] Result Comment: 40-5 9 mg/dL, Acceptable >59 mg/dL, High: Negative risk factor for coronary heart disease <40 mg/dL, Low: Positive risk factor for coronary heart disease Performed By: #### 2 276-4, 2132-01, 2283-12 #### [facility] CLIA [id number] [address] [place] [address] [place] Cholesterol in LDL [Mass/Vol] 119 mg/dL High <100 [facility] Comment on above: Order Comment: Laury bradshaw Type: BLOOD SPECIMEN Ordering Facility: [facility] Address: [address] [place] [address] Result Comment: <100 mg/dL, Optimal 100-129 mg/dL, Near optimal/above optimal 130-159 mg/dL, Borderline high 160-189 mg/dL, High >189 mg/dL, Very high Secondary prevention optimal LDL Cholesterol levels are recommended to be < 70 mg/dL Performed By: #### 2 276-4, 9, 2283-12 #### [facility] CLIA [id number] [address] [place] [address] [place] Cholesterol in LDL/Cholesterol in HDL [Mass ratio] 2.64 {ratio} High <2.54 [facility] Comment on above: Order Comment: Abbimurray bradshaw Type: BLOOD SPECIMEN Ordering Facility: [facility] Address: [address] [place] [address] Result Comment: Belinda degroot: 1. National Cholesterol Education Program ATP III Guideline At-A-Glance Quick Desk Reference: National Heart, Lung, and Blood [place]. National Institutes of Health. 2001: NIH Publication No. 01-3305. 2. An International Atherosclerosis Society position paper: global recommendations for the management of dyslipidemia: executive summary, Atherosclerosis. 2014: 232(2):410-413. Performed By: #### 2 276-4, 2132-01, 2283-12 #### [facility] CLIA [id number] [address] [place] [address] [place] Cholesterol in VLDL [Mass/Vol] 15 mg/dL Normal <30 [facility] Comment on above: Order Comment: Laury men Type: BLOOD SPECIMEN Ordering Facility: [facility] Address: [address] [place] [address] Performed By: #### 2 276-4, 2132-01, 2283-12 #### [facility] CLIA [id number] [address] [place] [address] [place] Cholesterol non HDL [Mass/Vol] 134 mg/dL High <130 [facility] Comment on above: Order Comment: Laury bradshaw Type: BLOOD SPECIMEN Ordering Facility: [facility] Address: [address] [place] [address] Result Comment: <130 mg/dL, Optimal 130-159 mg/dL, Near optimal/above optimal 160-189 mg/dL, Borderline high 190-219 mg/dL, High >219 mg/dL, Very high Secondary prevention optimal non HDL Cholesterol levels are recommended to be <100 mg/dL Performed By: #### 2 276-4, 2132-01, 2283-12 #### [facility] CLIA [id number] [address] [place] [address] [place] Cholesterol.total/Cho lesterol in HDL [Mass ratio] 3.98 {ratio} Normal <5.10 [facility] Comment on above: Order Comment: Laury bradshaw Type: BLOOD SPECIMEN Ordering Facility: [facility] Address: [address] [place] [address] Performed By: #### 2 276-4, 2132-01, 2283-12 #### [facility] CLIA [id number] [address] [place] [address] [place] FASTING TIME 12 hrs Normal [facility] Comment on above: Order Comment: Speci men Type: BLOOD SPECIMEN Ordering Facility: [facility] Address: [address] [place] [address] Performed By: #### 2 276-4, 9, 2283-12 #### [facility] CLIA [id number] [address] [place] [address] [place] Triglyceride [Mass/Vol] 74 mg/dL Normal <150 [facility] Comment on above: Order Comment: Speci men Type: BLOOD SPECIMEN [facility] [facility] Address: [address] [place] [address] Result Comment: <150 mg/dL, Normal 150-199 mg/dL, Borderline high 200-499 mg/dL, High >499 mg/dL, Very high Performed By: #### 2 276-4, 2132-01, 2283-12 #### [facility] CLIA [id number] [address] [place] [address] [place] NT-proBNP SerPl-mCncon 09-04 Natriuretic peptide.B prohormone N-Terminal [Mass/Vol] 48 pg/mL Normal <125 [facility] Comment on above: Order Comment: Abbii augustine Type: BLOOD SPECIMEN Ordering Facility: [facility] Address: [address] [place] [address] Performed By: #### 2 276-4, 2132-01, 2283-12 #### [facility] CLIA [id number] [address] [place] [address] [place] TSH SerPl-aCncon 09-05-2023 TSH Qn 6.440 m[IU]/L High 0.270-4.200 [facility] Comment on above: Order Comment: Abbii men Type: BLOOD SPECIMEN Ordering Facility: [facility] Address: [address] [place] [address] Result Comment: If t he patient is , TSH reference range varies by gestational period: First Trimester (weeks 9-12): 0.180-2.990 mIU/L Second Trimester: 0.110-3.980 mIU/L Third Trimester: 0.480-4.710 mIU/L Seth Crews et al. A Practical Approach for the Verifications and Determination of Site- and Trimester-Specific Reference Intervals for Thyroid Function tests in . Thyroid, 2019:29:3:412-420. Zhang Ybarra, et al. 2017 Guidelines of the [place] Thyroid Association for the Diagnosis and Management of Thyroid Disease during and the . Thyroid, 2017:27:3:315-389. Performed By: #### 2 276-4, 2132-9, 2284-8 #### [facility] CLIA [id number] [address] [place] [address] [place] VITAMIN B1 (THIAMINE), WHOLE BLOODon 09-05-2023 Thiamine (Bld) [Moles/Vol] 179.2 nmol/L Normal 84.3-213.3 [facility] Comment on above: Order Comment: Speci men Type: BLOOD SPECIMEN Ordering Facility: [facility] Address: [address] [place] [address] Result Comment: This assay measures the concentration of thiamine diphosphate (TDP), the primary active form of vitamin B1. Approximately 90 percent of vitamin B1 present in whole blood is TDP. Thiamine and thiamine monophosphate, which comprise the remaining 10 percent, are not measured. This test was developed and its performance characteristics determined by [facility]'s [facility] Pathology and Laboratory Medicine [place] ([facility]). It has not been cleared or approved by the FDA. -[place] is regulated under CLIA as qualified to perform high-complexity testing. This test is used for clinical purposes. It should not be regarded as investigational or for research. Performed By: #### B 1WB #### [facility] CLIA [id number] [address] [place] [address] [place] Vit B12 SerPl-mCncon 024 Cobalamin (Vitamin B12) [Mass/Vol] 612 pg/mL Normal 232-1245 [facility] Comment on above: Order Comment: Speci men Type: BLOOD SPECIMEN Ordering Facility: [facility] Address: [address] [place] [address] Performed By: #### 2 276-4, 2132-9, 2284-8 #### [facility] CLIA [id number] [address] [place] [address] [place] [address] [place] Glucose - FINGER STICKon Glucose [Mass/Vol] 5.4 mg/dL [facility] Other PAP ACOG PANEL 2: 30 to 65on 06-10-2022 . . Normal [facility] Comment on above: Result Comment: Perf ormed at: WB Performed By: #### 4 [id number] #### [facility] [address] [place] [address] Dr. Sachin Coates Age Gdln ACOG Testing - Normal [facility] Comment on above: Performed By: #### 4 [id number] #### [facility] [address] [address] [address] Sachin Coates DIAGNOSIS: Comment Normal [facility] Comment on above: Result Comment: NEGA TIVE FOR INTRAEPITHELIAL LESION OR MALIGNANCY. CELLULAR CHANGES ASSOCIATED WITH INFLAMMATION ARE PRESENT. THIS SPECIMEN WAS RESCREENED PART OF OUR SPECIALTY SALES CONSULTANT PROGRAM. Performed at: WB Performed By: #### 4 [id number] #### [facility] [address] [place] [address] Dr. Sachin Coates HPV Aptima Negative Normal Negative [facility] Comment on above: Result Comment: This nucleic acid amplification test detects fourteen high-risk HPV types (16,18,31,33,35,39,45,51,52,56,58,59,66,68) without differentiation. Performed at: =G Performed By: #### 4 [id number] #### [facility] [address] [address] [address] Sachin Coates HPV Genotype Reflex Comment Normal [facility] Comment on above: Result Comment: Crit eria not met, HPV Genotype not performed. Performed at: WB Performed By: #### 4 [id number] #### [facility] [address] [place] [address] Dr. Sachin Coates Methodology: Comment Normal [facility] Comment on above: Result Comment: This liquid based ThinPrep(R) pap test was screened with the use of an image guided system. Performed at: WB Performed By: #### 4 [id number] #### [facility] [address] [place] [address] Dr. Sachin Coates Note: Comment Normal [facility] Comment on above: Result Comment: The Pap smear is a screening test designed to aid in the detection of premalignant and malignant conditions of the uterine cervix. It is not a diagnostic procedure and should not be used as the sole means of detecting cervical cancer. Both false-positive and false-negative reports do occur. . Performed at: WB Performed By: #### 4 [id number] #### [facility] [address] [place] [address] Dr. Sachin Coates Performed by: Comment Normal [facility] Comment on above: Result Comment: Peyton Beverly, Housekeeping Room Attendant (ASCP) Performed at: WB Performed By: #### 4 [id number] #### [facility] [address] [place] [address] Dr. Sachin Coates QC reviewed by: Comment Normal [facility] Comment on above: Result Comment: Cielo Cochran, Supervisory Housekeeping Room Attendant (ASCP) Performed at: WB Performed By: #### 4 [id number] #### [facility] [address] [place] [address] Dr. Sachin Coates Specimen adequacy: Comment Normal [facility] Comment on above: Result Comment: Sati sfactory for evaluation. Endocervical and/or squamous metaplastic cells (endocervical component) are present. Performed at: WB Performed By: #### 4 [id number] #### [facility] [address] [place] [address] Dr. Sachin Coates COVID-19 SOFIAOrdered By: Dario To on 12-02-2021 SARS-CoV+SARS-CoV-2 (COVID-19) Ag IA.rapid Ql (Resp) Negative Negative [facility] Comment on above: This is a duplicate Zuleyma SARS Antigen (PAMELLA) result to be used for statistical tracking purpose only. No Panel InformationOrdered By: Ck To on 12-02-2021 SARS Antigen (LFIA) [facility] Chart Updateon 08-08-2020 Chart Update [...] Aug 08 2020 10:18AM EST (Author) Normal [facility] SEAT COVER MAKER - Procedure Visiton 0 07-10-2020 SEAT COVER MAKER - Procedure Visit Chief Complaint IUI Active [...] Touchworks ESTRADIOLon 02-27-2021 ESTRADIOL 186 pg/mL Normal [facility] Comment on above: Result Comment: Estr adiol measurement is performed using the Shruthi J Carlos Access Sensitive Estradiol Immunoassay. Estradiol testing is performed using a different test methodology at [facility] than other [facility]. Direct result comparison should only be made within the same method. REF VALUES EARLY FOLLICULAR 22-115 MID FOLLICULAR 25-115 OVULATORY PEAK 32-517 MID LUTEAL 37-246 POSTMENOPAUSE <15- 25 MALE <15- 32 Performed By: #### G [facility] #### [facility] [address] [place] [address] Estradiol, Serumon E2 [Mass/Vol] 186 pg/mL MG-OBGYN-Ri sm an 310 IVF Work Phone: Comment on above: Estradiol measuremen t is performed using the Shruthi [employer]als Access Sensitive Estradiol Immunoassay. Estradiol testing is performed using a different test methodology at [facility] than other [facility]. Direct result comparison should only be made within the same method.REF VALUESEARLY FOLLICULAR 22-115MID FOLLICULAR 25-115OVULATORY PEAK 32-517MID LUTEAL 37-246POSTMENOPAUSE <15- 25MALE <15- 32 LUTEINIZING HORMONEon 2020 LUTEINIZING HORMONE 9.5 IU/L Normal [facility] Comment on above: Result Comment: Lute inizing Hormone [LH] is performed using the Shruthi [place] Access Immunoassay. LH testing is performed using a different test methodology at [facility] than other [facility]. Direct result comparison should only be made within the same method. REF VALUES FOLLICULAR PHASE 1.5-10.0 MID-CYCLE 13.0-72.0 LUTEAL PHASE 0.5-13.0 MENOPAUSE 15.0-65.0 PREPUBERTY 0- 3.0 CHILDREN 0- 6.0 ADULT MALE 1.0- 9.0 Performed By: #### G [facility] #### [facility] [address] [place] [address] Luteinizing Hormone, Serumon 07-08-2020 Lutropin Qn 9.5 {IU/L} BT-VKOQR-Jsgc an 310 IVF Work Phone: Comment on above: Luteinizing Hormone [LH] is performed using the Shruthi [place] Access Immunoassay. LH testing is performed using a different test methodology at [facility] than other [facility]. Direct result comparison should only be made within the same method.REF VALUESFOLLICULAR PHASE 1.5-10.0MID-CYCLE 13.0-72.0LUTEAL PHASE 0.5-13.0MENOPAUSE 15.0-65.0PREPUBERTY 0- 3.0CHILDREN 0- 6.0ADULT MALE 1.0- 9.0 TYPE + SCREENon 07-06-2020 ABO TYPE A Normal [facility] Comment on above: Performed By: #### T +S #### [facility] [address] [place] [address] RH TYPE Positive Normal [facility] Comment on above: Performed By: #### T +S #### [facility] [address] [place] [address] ESTRADIOLon 07-05-2020 ESTRADIOL 58 pg/mL Normal [facility] Comment on above: Result Comment: Estr adiol measurement is performed using the Shruthi [place] Access Sensitive Estradiol Immunoassay. Estradiol testing is performed using a different test methodology at [facility] than other [facility]. Direct result comparison should only be made within the same method. REF VALUES EARLY FOLLICULAR 22-115 MID FOLLICULAR 25-115 OVULATORY PEAK 32-517 MID LUTEAL 37-246 POSTMENOPAUSE <15- 25 MALE <15- 32 Performed By: #### G CCHA #### [facility] [address] [place] [address] Estradiol, Serumon E2 [Mass/Vol] 58 pg/mL MG-OBGYN-Ri an 310 IVF Work Phone: Comment on above: Estradiol measuremen t is performed using the Shruthi J Carlos Access Sensitive Estradiol Immunoassay. Estradiol testing is performed using a different test methodology at [facility] than other [facility]. Direct result comparison should only be made within the same method.REF VALUESEARLY FOLLICULAR 22-115MID FOLLICULAR 25-115OVULATORY PEAK 32-517MID LUTEAL 37-246POSTMENOPAUSE <15- 25MALE <15- 32 Hematologyon 07-05-2020 ABO group Nom (Bld) A MG-PORTFOLIO ADMINISTRATOR-Rism an 310 IVF Work Phone: Blood group antibody screen Ql Negative JL-QVNJN-Ldvv an 310 IVF Work Phone: Rh immune globulin screen (Bld) [Interp] Positive MG-OBGYN-R ism an 310 IVF Work Phone: LUTEINIZING HORMONEon 2020 LUTEINIZING HORMONE 9.2 IU/L Normal [facility] Comment on above: Result Comment: Lute inizing Hormone [LH] is performed using the Shruthi [employer] Access Immunoassay. LH testing is performed using a different test methodology at [facility] than other [facility]. Direct result comparison should only be made within the same method. REF VALUES FOLLICULAR PHASE 1.5-10.0 MID-CYCLE 13.0-72.0 LUTEAL PHASE 0.5-13.0 MENOPAUSE 15.0-65.0 PREPUBERTY 0- 3.0 CHILDREN 0- 6.0 ADULT MALE 1.0- 9.0 Performed By: #### L H #### [facility] [address] [place] [address] Luteinizing Hormone, Serumon 07-05-2020 Lutropin Qn 9.2 {IU/L} HU-IKXHL-Zobb an 310 IVF Work Phone: Comment on above: Luteinizing Hormone [LH] is performed using the Hsruthi Infin[employer] Metals Access Immunoassay. LH testing is performed using a different test methodology at [facility] than other [facility]. Direct result comparison should only be made within the same method.REF VALUESFOLLICULAR PHASE 1.5-10.0MID-CYCLE 13.0-72.0LUTEAL PHASE 0.5-13.0MENOPAUSE 15.0-65.0PREPUBERTY 0- 3.0CHILDREN 0- 6.0ADULT MALE 1.0- 9.0 SEAT COVER MAKER - Office Visiton SEAT COVER MAKER - Office Visit Diagnoses/Problems Assessed Morbid obesity [...] MD [facility] [phone] [place] [phone] [place] 1 Amended By: Bayron Mccarty; Jun 19 [...] MD [facility] [phone] [place] [phone] [place] Appointment Duration:. 25 minutes; greater than half of the time was spent on counseling. 1 Amended By: Bayron Mccarty; Jun 19 2020 10:16 AM ESTChief Complaint follow up History of Present Opbageq7606/19/2020 9:30AM JALEESA ARRIETA , 30 year is contacted for an (audio-visual, or audio only) Telehealth visit. Today's visit was provided through telemedicine conferencing: Using JumpChat platform. Consent: The concept of telemedicine? has [...] is a telehealth appointment Results/Data HCG, Beta [id number] 11:58AMBayron Mccarty Test NameResultFlagReference HCG, Beta Quantitative<2 [...] performed using a different test methodology at [facility] than other [facility]. Direct result comparison should only be made within the same method. REF VALUES NON FEMALE <5 MALES <5 Progesterone, Kqzxp82Auo1882 11:58AMBayron Mccarty Test NameResultFlagReference Progesterone, Serum10.5 ng/mL REF VALUES MALE <0.3- 1.2 FOLLICULAR PHASE <0.3- 1.4 LUTEAL PHASE 3.3-25.6 MID-LUTEAL PHASE 4.4-28.0 POSTMENOPAUSAL <0.3- 0.7 FEMALES: 1ST TRIMESTER 11.2- 90.0 2ND TRIMESTER 25.6- 89.4 3RD TRIMESTER 48.4-422.5 . Patients receiving DHEA-S supplements may show false elevation of progesterone for results near 1.0 ng/mL. Contact laboratory at [phone] if alternative testing is needed. CMV IgG and IgM [id number] 11:58AMBayron Mccarty NameResultFlagReference CMV IgG AntibodyREACTIVEASee Below Reference Range: NONREACTIVE CMV IGM [id number] 11:58AMBayron Mccarty NameResultFlagReference CMV IGM AB<30.00 AU/mL [...] testing in two or more weeks. Xray Xamjvcnytnsgjtylris38Eqe 2020 12:00AMBayron Mccarty [Mar 28, 2020 9:43AM Bayron Mccarty] Reason: Unspecified for Xray Hysterosalpingogram Test NameResultFlagReference Xray Hysterosalpingogram Please click on the link to view the study images Anti Mullerian [id number] 12:03PMBayron Mccarty Test NameResultFlagReference Anti Mullerian Hormone6.36 ng/mL For assays employing antibodies, the possibility exists for interference by heterophile antibodies in the samples.1 1.Oswald Crews. Interferences in Immunoassays - still a threat. Clin. Chem. 2000; 46: 1380-6132. This test was developed and its performance characteristics determined by [employer]. It has not been cleared or approved by the Food and Drug Administration. Reference Range: Females 26 - 30y: 1.03 - 11.10 Median 4.20 AMH concentrations of >= 1.06 ng/mL is correlated with a better response to ovarian stimulation, produced more retrievable oocytes and higher odds of live according to Michaeler et al. Fertility and Sterility. 2010: 94:2142-7021. The current AMH test method correlates with [...] exclude an AMH-secreting ovarian tumor. Rubella IgG [id number] 12:03PMBayron Mccarty Test NameResultFlagReference Rubella IgG AntibodyPOSITIVE [...] TSH WITH REFLEX TO FREE T4 IF [id number] 12:03PMBayron Mccarty Test NameResultFlagReference Thyroid Stimulating Hormone, Serum2.17 mIU/LSee Below Reference Range: 0.44 - 3.98 TSH testing is performed using different testing methodology at [facility] than at other [facility]. Direct result comparisons should only be made within the same method. Varicella Zoster IgG [id number] 12:03PMBayron Mccarty Test NameResultFlagReference Varicella Zoster IgG [...] altered results in serological assays. Vitamin D 25-Itvaivi77Qwk4354 12:03Bayron Silva Test NameResultFlagReference Vitamin D 25-Hydroxy, Level17 ng/mLA . DEFICIENCY: < 20 NG/ML INSUFFICIENCY: 20-29 NG/ML SUFFICIENCY: 30-100 NG/ML THIS ASSAY ACCURATELY QUANTIFIES THE SUM OF VITAMIN D3, 25-HYDROXY AND VIT D2,25-HYDROXY. { 17-Hydroxyprogesterone, [id number] 12:03Bayron Silva Test NameResultFlagReference 17-Hydroxyprogesterone, Serum33 ng/dL [...] Endocrinol Metab. 1991;73:674-686; J Clin Endocrinol Metab. 1989;69;1937-6695; J Clin Endocrinol Metab. 1994;78:226-270. Pediatr Res 1988;23:525-529. MedLinePlus (accessed 10/25/13). This test was developed and its analytical performance characteristics have been determined by [facility] [place], [place]. It has not been cleared or approved by the U.S. Food and Drug Administration. This assay has been validated pursuant to the CLIA regulations and is used for clinical purposes. DHEA Sulfate, [id number] 12:03PMBayron Mccarty Test NameResultFlagReference DHEA Sulfate, Ybxmn951 ug/dL65 - 395 MATURITY-BASED REFERENCE RANGES: PUBERTAL [...] laboratory for further information. Testosterone Free + [id number] 12:03PMBayron Mccarty Test NameResultFlagReference Testosterone, Total63 ng/dLH2-45 For additional information, please refer to http://education.GigPark/faq/ TotalTestosteroneLCMSMSF AQ165 (This link is being provided for informational/ educational purposes only.) This test was developed and its analytical performance characteristics have been determined by [facility] [place], [place]. It has not been cleared or approved by the U.S. Food and Drug Administration. This assay has been validated pursuant to the CLIA regulations and is used for clinical purposes. Testosterone, Free Serum8.8 pg/mLH0.1-6.4 This test was developed and its analytical performance characteristics have been determined by [facility] [place], [place]. It has not been cleared or approved by the U.S. Food and Drug Administration. This assay has been validated pursuant to the CLIA regulations and is used for clinical purposes. Hemoglobin [id number] 12:03PMBayron Mccarty Test NameResultFlagReference Hemoglobin A1C, Level5.5 % Diagnosis of Diabetes-Adults Non-Diabetic: < or = 5.6% Increased risk for developing diabetes: 5.7-6.4% Diagnostic of diabetes: > or = 6.5% . Monitoring of Diabetes Age (y) Therapeutic Goal (%) Adults: >18 <7.0 Pediatrics: 13-18 <7.5 7-12 <8.0 0- 6 7.5-8.5 [place] [employer]. Diabetes Care 33(S1), May 2009. Estimated Average Xylerlo468 MG/DL GC + Chlamydia By Amplified [id number] 12:03Bayron Silva Test NameResultFlagReference N.GONORRHEA,AMPLIFIEDNEG ATIVENegative SOURCE: Urine Chlamydia Trach, AmplifiedNEGATIVENegativ e Hepatitis B Surface [id number] 12:03PMBayron Mccarty Test NameResultFlagReference Hep.B Surface AgNONREACTIVESee Below Reference Range: NONREACTIVE Biotin interference may cause falsely decreased results. Patients taking a Biotin dose of up to 5 mg/day should refrain from taking Biotin for 24 hours before sample collection. Providers may contact their local laboratory for further information. Hepatitis C Antibody [id number] 12:03PMBayron Mccarty Test NameResultFlagReference Hepatitis C-AntibodyNONREACTIVESee Below Reference Range: NONREACTIVE Results from patients taking biotin supplements or receiving high-dose biotin therapy should be interpreted with caution due to possible interference with this test. Providers may contact their local laboratory for further information. HIV 1/2 ANTIGEN/ANTIBODY SCREEN WITH REFLEX TO [id number] 12:03PMFindleBayron mccarthy Test NameResultFlagReference HIV 1/2 AG/AB SCREENNONREACTIVESee Below Reference Range: NONREACTIVE HIV Ag/Ab screen is performed using the Siemens NumonyxllTalenthouse HIV Ag/Ab Combo assay which detects the presence of HIV p24 antigen as well as antibodies to HIV-1 (Group M and O) and HIV-2. SYPHILIS SCREENING WITH [id number] 12:03PMBerryBayron mccarthy Test NameResultFlagReference SYPHILIS TOTAL ANTIBODYNONREACTIVESee Below SOURCE: Reference Range: NONREACTIVE No significant level of Treponema pallidum antibody detected. Repeat testing in 2 to 4 weeks may be considered if early infection or incubating syphilis infection is suspected. Signatures Electronically signed by : Bayron Mccarty MD; Jun 19 2020 10:16AM EST (Author) Normal [facility] CMV IGM ABon 04-20-2020 CMV IGM AB <30.00 Normal [facility] Comment on above: Result [...] weeks. Performed By: #### C MVM2 #### [facility] [address] [place] [address] CMV IGG AND IGM ABon 020 CMV IGG AB REACTIVE Abnormal NONREACTIVE [facility] Comment on above: Performed By: #### C MV2 #### [facility] [address] [place] [address] PROGESTERONEon 04-16-2020 PROGESTERONE 10.5 ng/mL Normal [facility] Comment on above: Result Comment: REF VALUES MALE <0.3- 1.2 FOLLICULAR PHASE <0.3- 1.4 LUTEAL PHASE 3.3-25.6 MID-LUTEAL PHASE 4.4-28.0 POSTMENOPAUSAL <0.3- 0.7 FEMALES: 1ST TRIMESTER 11.2- 90.0 2ND TRIMESTER 25.6- 89.4 3RD TRIMESTER 48.4-422.5 . Patients receiving DHEA-S supplements may show false elevation of progesterone for results near 1.0 ng/mL. Contact laboratory at [phone] if alternative testing is needed. Performed By: #### P BOBBY #### [facility] [address] [place] [address] HCG,BETA-QUANTITATIVEon HCG,BETA-QUANTITATIVE <2 Normal [facility] Comment on above: Result [...] HCG measurement is performed using the Shruthi [place] Access Immunoassay which detects intact HCG and free beta HCG subunit. This test is not indicated for use as a tumor marker. HCG testing is performed using a different test methodology at [facility] than other [facility]. Direct result comparison should only be made within the same method. REF VALUES NON FEMALE <5 MALES <5 Performed By: #### H CGQU #### [address] [id number] SEAT COVER MAKER - Office Visiton SEAT COVER MAKER - Office Visit Chief Complaint An interactive [...] test results. Roby JEWELL. History of Present Dvqtrqc9104/14/2020 9:30AM JALEESAИРИНА ARRIETA , 30 year is contacted for an (audio-visual, or audio only) Telehealth visit. Today's visit was provided through telemedicine conferencing: Using JumpChat platform. Consent: The concept of telemedicine? has [...] 2020 1:15:24 PM Vitals Vital Signs Recorded: [id number] 09:08AM Height5 ft 6 in Zpjeyx270 lb BMI Lbdeukuhcb11.81 BSA Calculated2.34 IWT98Udx7969 Gravida1 Para0 Pain Scale0 Physical Exam This is a telehealth appointment Results/Data Anti Mullerian [id number] 12:03PMBayron Mccarty Test NameResultFlagReference Anti Mullerian Hormone6.36 ng/mL For assays employing antibodies, the possibility exists for interference by heterophile antibodies in the samples.1 1.Oswald Crews. Interferences in Immunoassays - still a threat. Clin. Chem. 2000; 46: 9285-3066. This test was developed and its performance characteristics determined by [employer]. It has not been cleared or approved by the Food and Drug Administration. Reference Range: Females 26 - 30y: 1.03 - 11.10 Median 4.20 AMH concentrations of >= 1.06 ng/mL is correlated with a better response to ovarian stimulation, produced more retrievable oocytes and higher odds of live according to Michaeler et al. Fertility and Sterility. 2010: 94:3868-2226. The current AMH test method correlates with [...] exclude an AMH-secreting ovarian tumor. Anti Mullerian Fjtufeb19Tvz4683 12:03PMBayron Mccarty Test NameResultFlagReference Anti Mullerian Hormone6.36 ng/mL For assays employing antibodies, the possibility exists for interference by heterophile antibodies in the samples.1 1.Kricka L. Interferences in Immunoassays - still a threat. Clin. Chem. 2000; 46: 4440-8786. This test was developed and its performance characteristics determined by [employer]. It has not been cleared or approved by the Food and Drug Administration. Reference Range: Females 26 - 30y: 1.03 - 11.10 Median 4.20 AMH concentrations of >= 1.06 ng/mL is correlated with a better response to ovarian stimulation, produced more retrievable oocytes and higher odds of live according to Carey et al. Fertility and Sterility. 2010: 94:8932-4826. The current AMH test method correlates with [...] exclude an AMH-secreting ovarian tumor. Rubella IgG Uttjdsgx39Chj5262 12:03PMBayron Mccarty Test NameResultFlagReference Rubella IgG AntibodyPOSITIVE [...] TSH WITH REFLEX TO FREE T4 IF [id number] 12:03PMBayron Mccarty Test NameResultFlagReference Thyroid Stimulating Hormone, Serum2.17 mIU/LSee Below Reference Range: 0.44 - 3.98 TSH testing is performed using different testing methodology at [facility] than at other [facility]. Direct result comparisons should only be made within the same method. Varicella Zoster IgG Dlqihhbl74Coq0939 12:03PMBerryBayron mccarthy Test NameResultFlagReference Varicella Zoster IgG [...] altered results in serological assays. Vitamin D 25-Nerljdo82Mkw4138 12:03PMBibiana Bayron Test NameResultFlagReference Vitamin D 25-Hydroxy, Level17 ng/mLA . DEFICIENCY: < 20 NG/ML INSUFFICIENCY: 20-29 NG/ML SUFFICIENCY: 30-100 NG/ML THIS ASSAY ACCURATELY QUANTIFIES THE SUM OF VITAMIN D3, 25-HYDROXY AND VIT D2,25-HYDROXY. { 17-Hydroxyprogesterone, Ofzmv20Ovi4346 12:03Shira Bayron Test NameResultFlagReference 17-Hydroxyprogesterone, Serum33 ng/dL [...] Endocrinol Metab. 1991;73:674-686; J Clin Endocrinol Metab. 1989;69;4068-2554; J Clin Endocrinol Metab. 1994;78:226-270. Pediatr Res 1988;23:525-529. MedLinePlus (accessed 10/25/13). This test was developed and its analytical performance characteristics have been determined by [facility] [place], [place]. It has not been cleared or approved by the U.S. Food and Drug Administration. This assay has been validated pursuant to the CLIA regulations and is used for clinical purposes. DHEA Sulfate, Ftyxx60Pcz5365 12:03PMBerryBayron mccarthy Test NameResultFlagReference DHEA Sulfate, Cvdji681 ug/dL65 - 395 MATURITY-BASED REFERENCE RANGES: PUBERTAL [...] laboratory for further information. Testosterone Free + Lruae66Jxz2387 12:03PMBerryBayron mccarthy Test NameResultFlagReference Testosterone, Total63 ng/dLH2-45 For additional information, please refer to http://education.GigPark/faq/ TotalTestosteroneLCMSMSF AQ165 (This link is being provided for informational/ educational purposes only.) This test was developed and its analytical performance characteristics have been determined by [employer] [place], [place]. It has not been cleared or approved by the U.S. Food and Drug Administration. This assay has been validated pursuant to the CLIA regulations and is used for clinical purposes. Testosterone, Free Serum8.8 pg/mLH0.1-6.4 This test was developed and its analytical performance characteristics have been determined by [employer] [place], [place]. It has not been cleared or approved by the U.S. Food and Drug Administration. This assay has been validated pursuant to the CLIA regulations and is used for clinical purposes. Hemoglobin I7P88Aaj9601 12:03PMBibianaBayron Test NameResultFlagReference Hemoglobin A1C, Level5.5 % Diagnosis of Diabetes-Adults Non-Diabetic: < or = 5.6% Increased risk for developing diabetes: 5.7-6.4% Diagnostic of diabetes: > or = 6.5% . Monitoring of Diabetes Age (y) Therapeutic Goal (%) Adults: >18 <7.0 Pediatrics: 13-18 <7.5 7-12 <8.0 0- 6 7.5-8.5 [place] [employer]. Diabetes Care 33(S1), May 2009. Estimated Average Ntitagc125 MG/DL GC + Chlamydia By Amplified Lghykfalx32Yxi4871 12:03PMBayron Mccarty Test NameResultFlagReference N.GONORRHEA,AMPLIFIEDNEG ATIVENegative SOURCE: Urine Chlamydia Trach, AmplifiedNEGATIVENegativ e Hepatitis B Surface Zdnwnck01Jpo0833 12:03PMBayron Mccarty Test NameResultFlagReference Hep.B Surface AgNONREACTIVESee Below Reference Range: NONREACTIVE Biotin interference may cause falsely decreased results. Patients taking a Biotin dose of up to 5 mg/day should refrain from taking Biotin for 24 hours before sample collection. Providers may contact their local laboratory for further information. Hepatitis C Antibody Uqck90Rxi6756 12:03PMFinBayron polanco Test NameResultReference Hepatitis C-AntibodyNONREACTIVESee Below Reference Range: NONREACTIVE Results from patients taking biotin supplements or receiving high-dose biotin therapy should be interpreted with caution due to possible interference with this test. Providers may contact their local laboratory for further information. HIV 1/2 ANTIGEN/ANTIBODY SCREEN WITH REFLEX TO PNDNZLRWKBKB42Ncc7354 12:03PMBayron Mccarty NameResultRefereoneliae HIV 1/2 AG/AB SCREENNONREACTIVESee Below Reference Range: NONREACTIVE HIV Ag/Ab screen is performed using the Siemens [employer] HIV Ag/Ab Combo assay which detects the presence of HIV p24 antigen as well as antibodies to HIV-1 (Group M and O) and HIV-2. SYPHILIS SCREENING WITH SFRMBZ53Wqs1210 12:03PMBayron Mccarty NameResultFlagReference SYPHILIS TOTAL ANTIBODYNONREACTIVESee Below SOURCE: Reference Range: NONREACTIVE No significant level of Treponema pallidum antibody detected. Repeat testing in 2 to 4 weeks may be considered if early infection or incubating syphilis infection is suspected. Diagnoses/Problems Irregular menses (626.4) (N92.6) Morbid obesity (278.01) (E66.01) Orders HCG, Beta Quantitative; Status:Active; Requested for:28Vzn9702; Perform:Lab Services - Lab To Draw (Blood Test); Due:13Jul2020;Ordered; For:Irregular menses; Ordered By:Bayron Mccarty; Progesterone, Serum; Status:Active; Requested for:29Zqb4158; Perform:Lab Services - Lab To Draw (Blood [...] [facility] [phone] [place] [phone] [place] Appointment Duration:. 25 minutes; greater than half [...] MD [facility] [phone] [place] [phone] [place] 1 Amended By: Bayron Mccarty; Apr 14 2020 4:50 PM ESTSignatures Electronically signed by : Bayron Mccarty MD; Apr 14 2020 4:51PM EST (Author) Normal [facility]AT COVER MAKER - Procedure Visiton 1 05-28-2019 SEAT COVER MAKER - Procedure Visit Chief Complaint pt presents [...] 1 CAPSULE EVERY 12 HOURS DAILY; Therapy: 02Jcl4511 to (Evaluate:64Wps4506) Requested for: 05Ysz2243; Last Rx:33Geg8700 Ordered Rx By: Bayron Mccarty; Dispense: 5 Days ; #:10 Capsule; Refill: 0;For: Fertility testing; KEVIN = N; Verified Transmission to [place] [address]; Msg to Pharmacy: start medication the night [...] Signatures Electronically signed by : Kelle Vaz APRN-SENIOR WINDOWS SYSTEMS ADMINISTRATOR; Mar 28 2020 4:10PM EST (Author) Normal [facility] SEAT COVER MAKER - Office Visiton SEAT COVER MAKER - Office Visit Chief Complaint The patient [...] is considering single parent procreation. Her usual Cellular Tower Climber with whom she would plan to follow with for care in a future is Dr. Ng in [place]. Active Problems Female infertility (628.9) (N97.9) Fertility [...] 1 CAPSULE EVERY 12 HOURS DAILY; Therapy: 44Gym4334 to (Evaluate:65Qua5374) Requested for: 91Zms6827; Last Rx:75Uyh1245 Ordered Rx By: Bayron Mccarty; Dispense: 5 Days ; #:10 Capsule; Refill: 0; For: Fertility testing; KEVIN = N; Verified Transmission to [place] [address]; Msg to Pharmacy: start medication the night before her procedure; Last Updated By: [email or web address]; 01/24/2020 12:08:27 PM Vitamin D 25 MCG (1000 UT) Oral Tablet; Therapy: 13Mar2020 to Recorded Dispense: 0 Days ; #: Sufficient Tablet; Refill: 0; KEVIN = N; Record; Last Updated By: Breezy Jasso; 2020 1:15:24 PM Vitals Vital Signs Recorded: 13Mar2020 01:08PM Heart Rate96 Zgjosnrg060 Wxhxepuat11 Height5 ft 6 in Vrwdib233 lb BMI Imeaqplaqd68.91 BSA Calculated2.39 Tobacco Useb) No Fall Screeninga) No falls within the last year [id number] Gravida1 Para0 Pain Scale0 Diagnoses/Problems Morbid obesity [...] consultation of which greater than 50% was frdy-ml-nhid counseling. Weight loss prior to conception is [...] HORMONEon ANTI MULLERIAN HORMONE 6.36 ng/mL Normal [facility] Comment on above: Result Comment: For assays employing antibodies, the possibility exists for interference by heterophile antibodies in the samples.1 1.Oswald Crews. Interferences in Immunoassays - still a threat. Clin. Chem. 2000; 46: 7838-7394. This test was developed and its performance characteristics determined by [employer]. It has not been cleared or approved by the Food and Drug Administration. Reference Range: Females 26 - 30y: 1.03 - 11.10 Median 4.20 AMH concentrations of >= 1.06 ng/mL is correlated with a better response to ovarian stimulation, produced more retrievable oocytes and higher odds of live according to Gleicher et al. Fertility and Sterility. 2010: 94:3727-7011. The current AMH test method correlates with [...] ovarian tumor. Performed By: #### A #### [facility] [address] [place], [place] [id number] 17-HYDROXYPROGESTERONEon 17-HYDROXYPROGESTERON E 33 ng/dL Normal [facility] Comment on above: Result [...] Endocrinol Metab. 1991;73:674-686; J Clin Endocrinol Metab. 1989;69;0436-3502; J Clin Endocrinol Metab. 1994;78:226-270. Pediatr Res 1988;23:525-529. MedLinePlus (accessed 10/25/13). This test was developed and its analytical performance characteristics have been determined by [employer]. It has not been cleared or approved by the U.S. Food and Drug Administration. This assay has been validated pursuant to the CLIA regulations and is used for clinical purposes. Performed By: #### 1 7OHP #### [facility] [address] [place], [place] TESTOST,FREE AND TOTALon TESTOSTERONE TOT.LC/MS/MS 63 ng/dL High 2-45 [facility] Comment on above: Result Comment: For additional information, please refer to http://education.Goomzee/faq/ LnqrjSjinpirmtcugIBDUVPVTW670 (This link is being provided for informational/ educational purposes only.) This test was developed and its analytical performance characteristics have been determined by [employer]. It has not been cleared or approved by the U.S. Food and Drug Administration. This assay has been validated pursuant to the CLIA regulations and is used for clinical purposes. Performed By: #### G CCHA #### [facility] [address] [place] [address] TESTOSTERONE,FREE 8.8 pg/mL High 0.1-6.4 [facility] Comment on above: Result Comment: This test was developed and its analytical performance characteristics have been determined by [employer]. It has not been cleared or approved by the U.S. Food and Drug Administration. This assay has been validated pursuant to the CLIA regulations and is used for clinical purposes. Performed By: #### G [facility] #### [facility] [address] [place] [address] DHEA SULFATEon 01-25-2020 DHEA SULFATE 214 ug/dL Normal 65 - 395 [facility] Comment on above: Result [...] for further information. Performed By: #### G [facility] #### [facility] [address] [place] [address] GC + CHLAMYDIA BY AMPLIFIED DETECTIONon 01-25-2020 CHLAMYDIA TRACH.,AMPLIFIED Negative Normal Negative [facility] Comment on above: Performed By: #### G [facility] #### [facility] [address] [place] [address] N.GONORRHEA,AMPLIFIED Negative Normal Negative [facility] Comment on above: Performed By: #### G [facility] #### [facility] [address] [place] [address] HEPATITIS B SURFACE AGon HEP.B SURFACE AG NONREACTIVE Normal NONREACTIVE [facility] Comment on above: Result Comment: Biot in interference may cause falsely decreased results. Patients taking a Biotin dose of up to 5 mg/day should refrain from taking Biotin for 24 hours before sample collection. Providers may contact their local laboratory for further information. Performed By: #### G CCHA #### [facility] [address] [place] [address] HEPATITIS C ABon 01-25-2020 HEPATITIS C AB NONREACTIVE Normal NONREACTIVE [facility] Comment on above: Result Comment: Resu lts from patients taking biotin supplements or receiving high-dose biotin therapy should be interpreted with caution due to possible interference with this test. Providers may contact their local laboratory for further information. Performed By: #### H CVAB #### [facility] [address] [place] [address] HIV ANTIGEN/ANTIBODY SCREENo n 01-25-2020 HIV AG/AB SCREEN NONREACTIVE Normal NONREACTIVE [facility] Comment on above: Result Comment: HIV Ag/Ab screen is performed using the Siemens [employer] HIV Ag/Ab Combo assay which detects the presence of HIV p24 antigen as well as antibodies to HIV-1 (Group M and O) and HIV-2. Performed By: #### G CCHA #### [facility] [address] [place] [address] RUBELLA IGG ABon 01-25-2020 RUBELLA IGG AB Positive Normal [facility] Comment on above: Result Comment: INTE [...] assays. Performed By: #### R UBIG #### [facility] [address] [place] [address] SYPHILIS SCREENING WITH REFL EXon 01-25-2020 SYPHILIS TOTAL AB NONREACTIVE Normal NONREACTIVE [facility] Comment on above: Result Comment: No s ignificant level of Treponema pallidum antibody detected. Repeat testing in 2 to 4 weeks may be considered if early infection or incubating syphilis infection is suspected. Performed By: #### S YPHR #### [facility] [address] [place] [address] TSH WITH REFLEX TO FREE T4 I F ABNORMALon 01-25-2020 TSH Qn 2.17 m[IU]/L Normal 0.44 - 3.98 [facility] Comment on above: Result Comment: TSH testing is performed using different testing methodology at [facility] than at other [facility]. Direct result comparisons should only be made within the same method. Performed By: #### G [facility] #### [facility] [address] [place] [address] VARICELLA ZOSTER IGG ABon VARICELLA ZOSTER IGG AB Negative Normal NEGATIVE [facility] Comment on above: Result [...] assays. Performed By: #### V ARZG #### [facility] [address] [place] [address] VITAMIN D, 25-HYDROXYon 01-10 VITAMIN D, 25-HYDROXY 17 ng/mL Abnormal [facility] Comment on above: Result Comment: . DEFICIENCY: < 20 NG/ML INSUFFICIENCY: 20-29 NG/ML SUFFICIENCY: 30-100 NG/ML THIS ASSAY ACCURATELY QUANTIFIES THE SUM OF VITAMIN D3, 25-HYDROXY AND VIT D2,25-HYDROXY. { Performed By: #### G CCHA #### [facility] [address] [place] [address] GC + CHLAMYDIA BY AMPLIFIED DETECTIONon 01-24-2020 Lab Specimen Source Urine Normal [facility] Comment on above: Performed By: #### G [facility] #### [facility] [address] [place] [address] HEMOGLOBIN A1Con 01-24-2020 HbA1c (Bld) [Mass fraction] 5.5 % Normal [facility] Comment on above: Result Comment: Diag nosis of Diabetes-Adults Non-Diabetic: < or = 5.6% Increased risk for developing diabetes: 5.7-6.4% Diagnostic of diabetes: > or = 6.5% . Monitoring of Diabetes Age (y) Therapeutic Goal (%) Adults: >18 <7.0 Pediatrics: 13-18 <7.5 7-12 <8.0 0- 6 7.5-8.5 [place] [employer]. Diabetes Care 33(S1), May 2009. Performed By: #### H BA1E #### [facility] [address] [place] [address] HbA1c (Bld) [Mass fraction] 111 MG/DL Normal [facility] Comment on above: Performed By: #### H BA1E #### [facility] [address] [place] [address] SEAT COVER MAKER - Office Visiton 01-10 SEAT COVER MAKER - Office Visit Chief Complaint 29 year [...] was treated with laparoscopic left salpingectomy in [facility]. 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: STDs: Yes, remote history of gonorrhea [...] 01/24/2020 12:05:52 PM Vitals Vital Signs Recorded: 52Ejb1009 11:13AM Bduxvuntptr35.7 F Heart Oooe917 Xrwwarac496 Wkwsidngt56 Height5 ft 6 in Glvqqb164 lb BMI Yydydbjogw22.13 BSA Calculated2.35 Tobacco Useb) No Fall Screeninga) No falls within the last year XHX20Hnl0417 Gravida1 Para0 Pain Scale0 Diagnoses/Problems Female infertility (628.9) (N97.9) Fertility testing (V26.21) (Z31.41) Morbid obesity (278.01) (E66.01) Irregular menses (626.4) (N92.6) Screening for STD (sexually transmitted disease) (V74.5) (Z11.3) *Orders Anti Mullerian Hormone; Status:Active; Requested for:60Ntd5204; Perform:Lab Services - Lab To Draw (Non-Blood Test); Due:08Yso4061;Ordered; For:Female infertility, Fertility testing, Irregular menses, Morbid obesity; Ordered By:Bayron Mccarty; Start: Doxycycline Monohydrate 100 MG Oral Capsule; TAKE 1 CAPSULE EVERY 12 HOURS DAILY Rx By: Bayron Mccarty; Dispense: 5 Days ; #:10 Capsule; Refill: 0; For: Fertility testing; KEVIN = N; Verified Transmission to [place] [address]; Msg to Pharmacy: start medication the night before her procedure; Last Updated By: Yeimi LizarragaSilverLine Globalwillis; 01/24/2020 12:08:27 PM Maternal Medicine Referral Evaluation and Treatment Evaluate AND Treat Status: Hold For - Scheduling Requested for: 12Xri1588 Ordered; For: Morbid obesity; Ordered By: Bayron Mccarty Performed: Due: 34Lyr3589 17-Hydroxyprogesterone, Serum; Status:Active; Requested for:56Cdj7200; Perform:Lab Services - Lab To Draw (Blood Test); Due:81Vjk9957;Ordered; For:Screening for STD (sexually transmitted disease); Ordered By:Bayron Mccarty; DHEA Sulfate, Serum; Status:Active; Requested for:09Jzk1987; Perform:Lab Services - Lab To Draw (Blood Test); Due:31Owu1273;Ordered; For:Screening for STD (sexually transmitted disease); Ordered By:Bayron Mccarty; Hemoglobin A1C; Status:Active; Requested for:39Sip3507; Perform:Lab Services - Lab To Draw (Blood Test); Due:29Grp1854;Ordered; For:Screening for STD (sexually transmitted disease); Ordered By:Bayron Mccarty; Rubella IgG Antibody; Status:Active; Requested for:02Nys5870; Perform:Lab Services - Lab To Draw (Blood Test); Due:48Ild2298;Ordered; For:Screening for STD (sexually transmitted disease); Ordered By:Bayron Mccarty; Testosterone Free + Total; Status:Active; Requested for:24Jan2020; Perform:Lab Services - Lab To Draw (Blood Test); Due:10Vjs2367;Ordered; For:Screening for STD (sexually transmitted disease); Ordered By:Bayron Mccarty; TSH WITH REFLEX TO FREE T4 IF ABNORMAL; Status:Active; Requested for:24Jan2020; Perform:Lab Services - Lab To Draw (Blood Test); Due:23Fxf7425;Ordered; For:Screening for STD (sexually transmitted disease); Ordered By:Bayron Mccarty; Ultrasound Pelvis Transvaginal; Status:Hold For - Scheduling; Requested for:24Jan2020; Perform:[facility]; Order Comments:will call with menses to schedule; Due:85Ufl6326;Ordered; For:Screening for STD (sexually transmitted disease); Ordered By:Bayron Mccarty; Radiologist to Determine Optimal Study : Y What are the patient's signs and symptoms? : fert testing Varicella Zoster IgG Antibody; Status:Active; Requested for:24Jan2020; Perform:Lab Services - Lab To Draw (Blood Test); Due:93Smv2080;Ordered; For:Screening for STD (sexually transmitted disease); Ordered By:Bayron Mccarty; Vitamin D 25-Hydroxy; Status:Active; Requested for:24Jan2020; Perform:Lab Services - Lab To Draw (Blood Test); Due:23Apr2020;Ordered; For:Screening for STD (sexually transmitted disease); Ordered By:Bayron Mccarty; Xray Hysterosalpingogram; Status:Hold For - Scheduling; Requested for:24Jan2020; Perform:[facility]; Order Comments:will call with menses to schedule. schedule between CD5-12. start doxycycline night prior to procedure; Due:75Tnt7491;Ordered; For:Screening for STD (sexually transmitted disease); Ordered [...] Blood type [ ] Genetic Screen with [employer] - will consider [ ] Take vitamins [x] Return to see PROFESSOR OF SPECIAL EDUCATION after workup complete to discuss management plan [...] REFL EXon 01-24-2020 Lab Specimen Source Normal [facility] Comment on above: Performed By: #### S YPHR #### [facility] [address] [place] [address] Performed By: #### V ARZG #### [facility] [address] [place] [address] Performed By: #### R UBIG #### [facility] [address] [place] [address] Vital Signs Date Time Vital Sign Value Performing Clinician Facility 05-17-2024 15:36-0500 Body mass index (BMI) [Ratio] 49.41 kg/m2 [employer] Work Phone: [facility] 05-17-2024 15:36-0500 Body weight 138.85 kg [employer] Work Phone: [facility] 05-17-2024 15:36-0500 Diastolic blood pressure 80 mm[Hg] [employer] Work Phone: [facility] 05-17-2024 15:36-0500 Systolic blood pressure 118 mm[Hg] [employer] HESIODO Work Phone: [facility] 05-03-2024 15:11-0500 Body mass index (BMI) [Ratio] 49.09 kg/m2 Mena CARRILLO Work Phone: [facility] 05-03-2024 15:11-0500 Body weight 137.95 kg Mena Marissa PA Work Phone: [facility] 05-03-2024 15:11-0500 Diastolic blood pressure 70 mm[Hg] Mena Marissa PA Work Phone: [facility] 05-03-2024 15:11-0500 Systolic blood pressure 120 mm[Hg] Mena Balaton PA Work Phone: [facility] 04-22-2024 09:51-0500 Body mass index (BMI) [Ratio] 49.45 kg/m2 Tacho Shon DO Work Phone: [facility] 04-22-2024 09:51-0500 Body weight 138.98 kg Tacho Shon DO Work Phone: [facility] 04-22-2024 09:51-0500 Diastolic blood pressure 80 mm[Hg] Tacho Shon DO Work Phone: [facility] 04-22-2024 09:51-0500 Systolic blood pressure 130 mm[Hg] Tacho Shon DO Work Phone: [facility] 04-06-2024 14:10-0500 Body mass index (BMI) [Ratio] 48.58 kg/m2 Mena Balaton PA Work Phone: [facility] 04-06-2024 14:10-0500 Body weight 136.53 kg Mena Marissa PA Work Phone: [facility] 04-06-2024 14:10-0500 Diastolic blood pressure 80 mm[Hg] Mena Balaton PA Work Phone: [facility] 04-06-2024 14:10-0500 Systolic blood pressure 128 mm[Hg] Mena Marissa PA Work Phone: [facility] 03-22-2024 14:14-0500 Body mass index (BMI) [Ratio] 48.92 kg/m2 Tacho Shon DO Work Phone: [facility] 03-22-2024 14:14-0500 Body weight 137.49 kg Tacho Shon DO Work Phone: [facility] 03-22-2024 14:14-0500 Diastolic blood pressure 84 mm[Hg] Tacho Shon DO Work Phone: [facility] 03-22-2024 14:14-0500 Systolic blood pressure 126 mm[Hg] Tacho Shon DO Work Phone: [facility] 03-05-2024 23:11-0400 Diastolic blood pressure 78 mm[Hg] [facility] Work Phone: [facility] 03-05-2024 23:11-0400 Heart rate 90 /min [facility] Work Phone: [facility] 03-05-2024 23:11-0400 Respiratory rate 18 /min [facility] Work Phone: [facility] 03-05-2024 23:11-0400 SaO2% (BldA) [Mass fraction] 96 % [facility] Work Phone: [facility] 03-05-2024 23:11-0400 Systolic blood pressure 136 mm[Hg] [facility] Work Phone: [facility] 03-05-2024 19:59-0400 Body temperature 98.1 [degF] Services [facility] Health Work Phone: [facility] 03-05-2024 19:58-0400 Body height 167.64 cm Services [facility] Work Phone: [facility] 03-05-2024 19:58-0400 Body weight 136.55 kg [facility] Work Phone: [facility] 02-26-2024 19:50-0400 Body height 167.64 cm [facility] Work Phone: [facility] 02-26-2024 19:50-0400 Body temperature 97.8 [degF] [facility] Work Phone: [facility] 02-26-2024 19:50-0400 Body weight 136.98 kg [facility] Work Phone: [facility] 02-26-2024 19:50-0400 Diastolic blood pressure 91 mm[Hg] Services [employer] Work Phone: [facility] 02-26-2024 19:50-0400 Heart rate 103 /min Services [facility] Work Phone: [facility] 02-26-2024 19:50-0400 Respiratory rate 16 /min Services [facility] Work Phone: [facility] 02-26-2024 19:50-0400 SaO2% (BldA) [Mass fraction] 96 % Services [facility] Work Phone: [facility] 02-26-2024 19:50-0400 Systolic blood pressure 144 mm[Hg] Services [facility] Work Phone: [facility] 02-23-2024 14:01-0400 Body mass index (BMI) [Ratio] 48.76 kg/m2 Mena Ann PA Work Phone: [facility] 02-23-2024 14:01-0400 Body weight 137.04 kg Mena Ann PA Work Phone: [facility] 02-23-2024 14:01-0400 Diastolic blood pressure 82 mm[Hg] Mena Ann PA Work Phone: [facility] 02-23-2024 14:01-0400 Systolic blood pressure 128 mm[Hg] Mena Ann PA Work Phone: [facility] 01-20-2024 13:58-0400 Body mass index (BMI) [Ratio] 48.1 kg/m2 Tacho Shon DO Work Phone: [facility] 01-20-2024 13:58-0400 Body weight 135.17 kg Tacho Shon DO Work Phone: [facility] 01-20-2024 13:58-0400 Diastolic blood pressure 74 mm[Hg] Tacho Shon DO Work Phone: [facility] 01-20-2024 13:58-0400 Systolic blood pressure 122 mm[Hg] Tacho Menendez DO Work Phone: [facility] 10-06-2023 17:42-0400 Body height 167.64 cm [facility] Work Phone: [facility] 10-06-2023 17:42-0400 Body temperature 98.3 [degF] [facility] Work Phone: [facility] 10-06-2023 17:42-0400 Body weight 134 kg [facility] Work Phone: [facility] 10-06-2023 17:42-0400 Diastolic blood pressure 94 mm[Hg] [facility] Work Phone: [facility] 10-06-2023 17:42-0400 Heart rate 98 /min [facility] Work Phone: [facility] 10-06-2023 17:42-0400 Respiratory rate 18 /min [facility] Work Phone: [facility] 10-06-2023 17:42-0400 SaO2% (BldA) [Mass fraction] 100 % [facility] Work Phone: [facility] 10-06-2023 17:42-0400 Systolic blood pressure 142 mm[Hg] [facility] Work Phone: [facility] 09-17-2023 14:22-0400 Body height 167.[address] [facility] 09-17-2023 14:22-0400 Body mass index (BMI) [Ratio] 47.61 kg/m2 Anna Ortiz RD [facility] 09-17-2023 14:22-0400 Body weight 133.[address] [facility] 08-20-2023 13:05-040 Body height 167.6 cm Tonya Senior APRN.SENIOR WINDOWS SYSTEMS ADMINISTRATOR Work Phone: [facility] 08-20-2023 13:05-0400 Body weight 133.81 kg Tonya Senior APRN.SENIOR WINDOWS SYSTEMS ADMINISTRATOR Work Phone: [facility] 08-07-2023 15:23-0400 Body height 168.91 cm [facility] Work Phone: [facility] 08-07-2023 15:23-0400 Body mass index (BMI) [Ratio] 46.9 kg/m2 [facility] Work Phone: [facility] 08-07-2023 15:23-0400 Body weight 133.89 kg Services [employer] Work Phone: [facility] 08-07-2023 15:23-0400 Diastolic blood pressure 83 mm[Hg] Services [facility] Work Phone: [facility] 08-07-2023 15:23-0400 Heart rate 101 /min [facility] Work Phone: [facility] 08-07-2023 15:23-0400 Respiratory rate 18 /min [facility] Work Phone: [facility] 08-07-2023 15:23-0400 SaO2% (BldA) [Mass fraction] 98 % Services [facility] Work Phone: [facility] 08-07-2023 15:23-0400 Systolic blood pressure 120 mm[Hg] [facility] Work Phone: [facility] 06-13-2023 11:00-0500 Body height 168.28 cm Nicholas [employer] Other [facility] 06-13-2023 11:00-0500 Body mass index (BMI) [Ratio] 48.53 kg/m2 Nicholas [employer] Other [employer] Other 06-13-2023 11:00-0500 Body weight 137.44 kg [employer] Other [employer] Other 06-13-2023 11:00-0500 Body weight 137.43 kg Services [employer] Work Phone: [facility] 06-13-2023 11:00-0500 Diastolic blood pressure 82 mm[Hg] Nicholas [employer] Other [facility] 06-13-2023 11:00-0500 Respiratory rate 18 /min Nicholas [employer] Other [employer] Other 06-13-2023 11:00-0500 SaO2% (BldA) [Mass fraction] 97 % Nicholas [employer] Other [employer] Other 06-13-2023 11:00-0500 Systolic blood pressure 120 mm[Hg] Nicholas [employer] Other [facility] 01-08-2023 10:45-0400 Body height 168.28 cm Nicholas [employer] Other [employer] Other 01-08-2023 10:45-0400 Body mass index (BMI) [Ratio] 52.89 kg/m2 Nicholas [employer] Other [employer] Other 01-08-2023 10:45-0400 Body weight 149.78 kg Nicholas [employer] Other [employer] Other 01-08-2023 10:45-0400 Diastolic blood pressure 81 mm[Hg] Nicholas [employer] Other [employer] Other 01-08-2023 10:45-0400 Respiratory rate 18 /min [employer] Other [employer] Other 01-08-2023 10:45-0400 SaO2% (BldA) [Mass fraction] 97 % [employer] Other [employer] Other 01-08-2023 10:45-0400 Systolic blood pressure 122 mm[Hg] [employer] Other [facility] [employer] Other 06-18-2022 16:57-0500 Body height 167.64 cm [facility] Work Phone: [facility] 06-18-2022 16:57-0500 Body weight 157 kg [facility] Work Phone: [facility] 06-18-2022 16:56-0500 Body temperature 98.3 [degF] [facility] Work Phone: [facility] 06-18-2022 16:56-0500 Diastolic blood pressure 67 mm[Hg] [facility] Work Phone: [facility] 06-18-2022 16:56-0500 Heart rate 95 /min [facility] Work Phone: [facility] 06-18-2022 16:56-0500 Respiratory rate 20 /min [facility] Work Phone: [facility] 06-18-2022 16:56-0500 SaO2% (BldA) [Mass fraction] 97 % [facility] Work Phone: [facility] 06-18-2022 16:56-0500 Systolic blood pressure 158 mm[Hg] [facility] Work Phone: [facility] 12-02-2021 20:26-0400 Body height 167.64 cm [facility] Work Phone: [facility] 12-02-2021 20:26-0400 Body temperature 98.2 [degF] [facility] Work Phone: [facility] 12-02-2021 20:26-0400 Body weight 144.24 kg [facility] Work Phone: [facility] 12-02-2021 20:26-0400 Diastolic blood pressure 89 mm[Hg] [facility] Work Phone: [facility] 12-02-2021 20:26-0400 Heart rate 104 /min [facility] Work Phone: [facility] 12-02-2021 20:26-0400 Respiratory rate 20 /min [facility] Work Phone: [facility] 12-02-2021 20:26-0400 SaO2% (BldA) [Mass fraction] 96 % Services [facility] [employer] Work Phone: [facility] 12-02-2021 20:26-0400 Systolic blood pressure 156 mm[Hg] [facility] Work Phone: [facility] 06-19-2020 11:10-0500 BMI (Body Mass Index) 46.65 kg/m2 Bayron Bibiana FN-JKMCU-Djkvig 310 [facility] Work Phone: 06-19-2020 11:10-0500 Body weight 131.09 kg Bayron Bibiana HY-DFOCQ-Xyjpgg 310 IVF Work Phone: 06-19-2020 11:10-0500 BSA (Body Surface Area) 2.34 m2 Bayron Bibiana PJ-YAAID-Mobhmo 310 IV[facility] Work Phone: 06-19-2020 11:10-0500 Height 167.64 cm Bayron Bibiana WH-RQIRO-Ywfocg 310 IVF Work Phone: 06-19-2020 11:10-0500 1 1 Bayron Bibiana IV-RAGCK-Akxjjy 310 IVF Work Phone: Comment on above: 06-19-2020 11:10-0500 0 1 Bayron Bibiana QE-CLSQZ-Zrpfij 310 IVF Work Phone: Comment on above: Para Pain Scale Encounters Encounter Date Encounter Type Care Provider Facility Start: 05-17-2024 End: 05-17-2024 Departed Referred Services [facility] Work Phone: [facility] Start: 05-17-2024 End: 05-17-2024 Office outpatient visit 15 minutes Tacho Menendez DO Work Phone: [facility] Comment on above: 37 weeks gestation o f ; Third trimester Start: 05-17-2024 End: 05-17-2024 ambulatory Services [facility] Work Phone: [facility] Work Phone: Start: 05-17-2024 End: 05-17-2024 Bamboo [...] Start: 04-27-2024 End: [facility]: 04-22-2024 End: 04-22-2024 Bamboo flowsheet Tacho [...] 03-30-2024 ambulatory TACHO R SHON [facility] Start: 03-22-2024 End: 03-22-2024 Bamboo flowsheet [...] End: 03-05-2024 Emergency department patient visit Services [facility] Work Phone: [facility] Work Phone: Start: 03-01-2024 End: 03-01-2024 Orders Only Veda Hayes RN [facility] at [facility] Comment on above: Encounter for follow -up ultrasound of anatomy (Primary Dx); History of pre-eclampsia in prior , currently ; History of delivery, currently ; Obesity affecting in second trimester, unspecified obesity type Start: 02-26-2024 End: 02-26-2024 Emergency department patient visit Services [facility] Work Phone: [facility] Work Phone: Start: 02-23-2024 End: [...] Not Available Start: 02-17-2024 End: 02-17-2024 [facility] Start: 01-26-2024 End: 01-26-2024 Clinisync Result Encounter [...] 01-19-2024 End: 01-19-2024 ambulatory TACHO R SHON [facility] Start: 12-23-2023 End: 12-23-2023 ambulatory MENA ANN Not Available Start: 11-25-2023 End: 11-25-2023 ambulatory TACHO SHON Not Available Start: 10-30-2023 End: 10-30-2023 ambulatory TACHO SHON Not Available Start: 10-09-2023 End: 10-09-2023 ambulatory LATONIA OSUNAARDO Facility:[facility] Start: 10-06-2023 End: 10-06-2023 Emergency department patient visit Services [facility] Work Phone: [facility] Work Phone: Start: 09-17-2023 End: 09-17-2023 ambulatory ANNA ORTIZ Facility:[facility] Start: 09-17-2023 End: 09-17-2023 Nutrition therapy Anna Ortiz RD Nutrition Therapy Comment on above: Obesity, Class III, BMI 40-49.9 (morbid obesity) (HCC) (Primary Dx); Dietary counseling Start: 09-17-2023 End: 09-17-2023 Telemedicine consultation with patient Anna Ortiz RD Nutrition Therapy Start: 09-15-2023 [facility] Tonya Senior APRN.SENIOR WINDOWS SYSTEMS ADMINISTRATOR Work Phone: General Surgery Comment on above: Results Start: 09-15-2023 E-mail encounter fro m caregiver Tonya Senior APRN.SENIOR WINDOWS SYSTEMS ADMINISTRATOR Work Phone: General Surgery Start: 09-11-2023 Telephone encounter Tonya Senior APRN.SENIOR WINDOWS SYSTEMS ADMINISTRATOR Work Phone: General Surgery Comment on above: Results Start: 09-08-2023 End: 09-08-2023 ambulatory TONYA SENIOR Facility:[facility] Start: 09-05-2023 End: 09-05-2023 ambulatory TONYA SENIOR Facility:[facility] Start: 09-01-2023 End: 09-02-2023 ambulatory LATONIA GREENE Facility:[facility] Start: 09-01-2023 End: 09-01-2023 Admission to same day surgery center Latonia Greene PhD Work Phone: General Surgery BMI PSYL Comment on above: NO SHOW (Primary Dx) Start: 09-01-2023 End: 09-01-2023 Telemedicine consultation with patient Latonia Greene PhD Work Phone: General Surgery BMI PSYL Start: 08-20-2023 Admission to same da y surgery center Tonya Senior APRN.SENIOR WINDOWS SYSTEMS ADMINISTRATOR Work Phone: General Surgery Comment on above: Welcome to Bariatric Surgery Start: 08-20-2023 E-mail encounter fro m caregiver Tonya Senior APRN.SENIOR WINDOWS SYSTEMS ADMINISTRATOR Work Phone: [place] [id number] Start: 08-20-2023 End: 08-20-2023 ambulatory Tonya Senior APRN.SENIOR WINDOWS SYSTEMS ADMINISTRATOR Work Phone: General Surgery Comment on above: Body mass index (BMI ) of 50-59.9 in adult (HCC) (Primary Dx); Angel's thyroiditis; High blood cholesterol Start: 08-20-2023 End: 08-20-2023 Telemedicine consultation with patient Tonya Senior APRN.SENIOR WINDOWS SYSTEMS ADMINISTRATOR Work Phone: [facility] Start: 08-07-2023 End: 08-07-2023 ambulatory [facility] Work Phone: [facility] Work Phone: Start: 08-07-2023 End: 08-07-2023 Patient encounter procedure [facility] Work Phone: [facility] Work Phone: Start: 06-13-2023 Follow-up encounter Nicholas leon [facility] Start: 06-13-2023 Registered Recurring [facility] Work Phone: [facility] Work Phone: Start: 06-13-2023 End: 06-13-2023 ambulatory Services [facility] [employer] Other Start: 06-13-2023 End: 06-13-2023 Patient encounter procedure Services [facility] Work Phone: [facility]- Start: 01-08-2023 End: 01-08-2023 ambulatory Nicholas Michaels Other [facility] [employer] Other Start: 01-08-2023 Nutrition therapy Nicholas Brando Malik located [facility] Start: 06-18-2022 End: 06-18-2022 Emergency department patient visit Services [facility] Work Phone: [facility] Work Phone: Start: 06-03-2022 End: 06-03-[address] TACHO MENENDEZ Facility: Start: 12-02-2021 End: 12-02-2021 Emergency department patient visit [facility] Work Phone: [facility] Start: 07-08-2020 Patient encounter procedure Bayron Bibiana PAEZCV-ZMWUX-Yevitr 310 IVF Work Phone: Start: 07-05-2020 Patient encounter procedure Bayron Bibiana NE-WCHNK-Sumbgd 310 IVF Work Phone: Start: 06-19-2020 Patient encounter procedure Bayron Bibiana PAEZVT-TDRJU-Rdodxx 310 IVF Work Phone: Start: 04-14-2020 Patient encounter procedure Bayron Bibiana PAEZHA-FXJYF-[place] 310 IVF Work Phone: Start: 03-28-2020 Patient encounter procedure Bayron Anaya [facility] Work Phone: Start: 2020 Patient encounter procedure Bayron Anaya IV[facility] Work Phone: Start: 01-24-2020 Patient encounter procedure Bayron Anaya IV[facility] Work Phone: Start: 08-01-2017 End: 08-02-2017 Ambulatory Agustin Patton Facility:[id number] Start: 07-14-2017 End: 07-15-2017 Ambulatory Agustin Carrasquillo Facility:[id number] Procedures Date Procedure Procedure Detail Performing [...] Work Phone: Start: 03-05-2024 Plain chest X-ray [facility] Work Phone: Start: 03-05-2024 Respiratory Panel (PCR) Services [facility] Phone: Start: 03-05-2024 Respiratory Panel (PCR) Services [employer] Work Phone: Start: 03-05-2024 Streptococcus pyogen es antigen assay [facility] Phone: Start: 02-26-2024 Streptococcus pyogen es antigen assay [facility] Phone: Start: 02-23-2024 Urnls dip stick/tabl et rgnt non-auto w/o micrscp Mena Ann PA Work Phone: Start: 01-26-2024 ALL THYROID STIM HORMONE [employer] Work Phone: Start: 01-20-2024 Urnls dip stick/tabl et rgnt non-auto w/o micrscp [facility] [employer] Work Phone: Start: 12-23-2023 Microscopic observat ion [Identifier] in Cervix by Cyto stain [employer] [employer] Work Phone: Start: 07-06-2020 Antibody screen Comment on above: Performed By: #### T +S #### [facility] [address] [place] [address] Start: 07-05-2020 IO Ultrasound, limit ed pelvic, follicle monitoring Bayron Mccarty Start: 06-26-2020 IO Ultrasound, limit ed pelvic, follicle monitoring Bayron Mccarty Start: 05-10-2020 Assay of progesterone J oslissette Mccarty Adenoid excision Bayron wallace Cholecystectomy Bayron Chen ey SARS Antigen (LFIA) Services [facility] Phone: Plan of Treatment Date Care Activity Detail Author Start: 12-22-2028 Screening for malign ant neoplasm of cervix [facility] Start: 12-22-2026 Screening for malign ant neoplasm of cervix Pap Smear [facility] Start: 03-01-2025 End: 03-01-2025 US MFM with [...] Adult BMI Screening Adult BMI Screen ing [facility] Start: 01-18-2025 Tobacco Screening Tobacco Screening [facility] Start: 05-27-2024 End: 05-27-2024 Patient encounter procedure 05/27/2024 10:20 AM EST Routine [facility] [address] [place] [id number] Tacho Menendez, DO [address] [place] [address] [facility] Start: 05-26-2024 End: 05-26-2024 Patient encounter procedure 05/26/2024 2:10 PM EST Routine [facility] [address] [facility] [place] [phone] Tacho Menendez, DO [address] [place] [address] [facility] Start: 05-17-2024 Following clinical pathway protocol [facility] Start: 05-17-2024 End: 05-17-2024 Patient encounter procedure [facility] Comment on above: Arrived Start: 05-17-2024 End: 05-17-2025 CULTURE, GROUP B STREP WITH SUSCEPTIBLITY CULTURE, GROUP B STREP WITH SUSCEPTIBLITY Lab Routine Third trimester Expected: 05/17/2024, Expires: 05/17/2025 [facility] Work Phone: Comment on above: Expected: 05/17/2024 , Expires: 05/17/2025 Start: 05-17-2024 Group B Streptococcu s Culture Group B Streptococcus Culture [facility] Start: 05-03-2024 End: 05-03-2024 Patient encounter procedure 05/03/2024 2:50 PM EST Routine [facility] [address] [place] [phone] Mena Ann PA [address] [place] [address] [facility] Start: 04-22-2024 End: 04-22-2025 [...] PM EST Routine [facility] [address] [place] [phone] Mena Ann PA [address] [place] [address] [facility] Start: 03-30-2024 End: 03-30-2024 Patient encounter procedure 03/30/2024 2:45 PM EST Appointment [facility] - Ultrasound [address] [place] [phone] [facility] Start: 03-22-2024 End: 03-22-2024 Patient encounter procedure 03/22/2024 1:50 PM EST Routine [facility] [address] [facility] [place] [place] [phone] Tacho Menendez, DO [address] [place] [address] [facility] Start: 03-22-2024 End: 03-22-2024 Professional / ancillary services management 03/22/2024 1:00 PM EST Ancillary Procedure [facility] [address] [place] [phone] [facility] Start: 03-16-2024 End: 03-16-2024 Patient encounter procedure 03/16/2024 1:30 PM EST Routine [facility] [address] [place] [address] Tacho Menendez, DO [address] [place] [address] [facility] Start: 02-23-2024 End: 02-22-2025 CBC panel - Blood by Automated count CBC Lab Routine Diabetes mellitus screening Expected: 02/23/2024 (Approximate), Expires: 02/22/2025 [facility] Work Phone: Comment on above: Expected: 02/23/2024 (Approximate), Expires: 02/22/2025 Start: 02-23-2024 End: 02-22-2025 Measurement of glucose 1 hour after glucose challenge for glucose tolerance test Glucose tolerance, 1 hour Lab Routine Diabetes mellitus screening Expected: 02/23/2024 (Approximate), Expires: 02/22/2025 [facility] Comment on above: Expected: 02/23/2024 (Approximate), Expires: 02/22/2025 Start: 02-23-2024 End: 02-22-2025 US for US OB SCAN FOR GROWTH Imaging Routine size inconsistent with dates H/O premature delivery Expected: 02/23/2024 (Approximate), Expires: 02/22/2025 [facility] Comment on above: Expected: 02/23/2024 (Approximate), Expires: 02/22/2025 Start: 02-23-2024 End: 02-23-2024 Patient encounter procedure 02/23/2024 1:40 PM EDT Routine [facility] [address] [phone] Mena Ann PA [address] [place], [facility] Arrived [facility] Comment on above: Arrived Start: 02-18-2024 End: 02-18-2024 Patient encounter procedure 02/18/2024 2:30 PM EDT Routine [facility] [address] [place] [address] Mena Ann PA [address] [place], [facility] Start: 01-11-2024 COVID-19 Vaccine ( season) COVID-19 Vaccine ( season) [facility] Start: 01-11-2024 Influenza vaccination [facility] Start: 09-17-2023 End: 09-17-2023 Nutrition therapy 09/17/2023 2:30 PM EDT [facility] Nutrition Therapy [address] [place] [id number] Anna Ortiz, SARMAD [address] [place] [address] Red/Davis/0 [facility]/[place] [facility] Comment on above: Red/Davis/0 [facility]/ [place] Start: 09-12-2023 End: 09-12-2023 Admission to same day surgery center 09/12/2023 3:30 PM EDT [facility] General Surgery [address] [id number] Joo Bradley MD [address] [place] [address] Red/Kirk/0 [facility] [facility] Comment on above: Red/Kirk/0 Diet/Anth em Start: 09-05-2023 End: 09-05-2023 ambulatory 09/05/2023 11:45 AM EDT Results Only [facility] [address] [place] [address] [place] [address] [facility] Start: 08-20-2023 End: 11-19-2023 25-hydroxyvitamin D3 [Mass/volume] in Serum or Plasma VITAMIN D 25 HYDROXY Lab Routine Body mass index (BMI) of 50-59.9 in adult (HCC) Expected: 08/20/2023, Expires: 11/19/2023 [facility] Work Phone: Comment on above: Expected: 08/20/2023 , Expires: 11/19/2023 Start: 08-20-2023 End: 11-19-2023 CBC W Auto Differential panel - Blood COMPLETE BLOOD COUNT AND DIFFERENTIAL Lab Routine Body mass index (BMI) of 50-59.9 in adult (HCC) Expected: 08/20/2023, Expires: 11/19/2023 [facility] Work Phone: Comment on above: Expected: 08/20/2023 , Expires: 11/19/2023 Start: 08-20-2023 End: 11-19-2023 Cobalamin (Vitamin B12) [Mass/volume] in Serum or Plasma VITAMIN B12 Lab Routine Body mass index (BMI) of 50-59.9 in adult (HCC) Expected: 08/20/2023, Expires: 11/19/2023 [facility] Work Phone: Comment on above: Expected: 08/20/2023 , Expires: 11/19/2023 Start: 08-20-2023 End: 11-19-2023 Comprehensive metabolic 2000 panel - Serum or Plasma COMPREHENSIVE METABOLIC PANEL Lab Routine High blood cholesterol Body mass index (BMI) of 50-59.9 in adult (HCC) Expected: 08/20/2023, Expires: 11/19/2023 [facility] Work Phone: Comment on above: Expected: 08/20/2023 , Expires: 11/19/2023 Start: 08-20-2023 End: 11-19-2023 Ferritin [Mass/volume] in Serum or Plasma FERRITIN Lab Routine Body mass index (BMI) of 50-59.9 in adult ([facility]) Expected: 08/20/2023, Expires: 11/19/2023 [facility] Work Phone: Comment on above: Expected: 08/20/2023 , Expires: 11/19/2023 Start: 08-20-2023 End: 11-19-2023 Folate [Mass/volume] in Serum or Plasma FOLATE, SERUM Lab Routine Body mass index (BMI) of 50-59.9 in adult ([facility]) Expected: 08/20/2023, Expires: 11/19/2023 [facility] Work Phone: Comment on above: Expected: 08/20/2023 , Expires: 11/19/2023 Start: 08-20-2023 End: 11-19-2023 Helicobacter pylori IgG Ab [Presence] in Serum or Plasma by Immunoassay H PYLORI IGG AB Lab Routine Body mass index (BMI) of 50-59.9 in adult ([facility]) Expected: 08/20/2023, Expires: 11/19/2023 [facility] [facility] Work Phone: Comment on above: Expected: 08/20/2023 , Expires: 11/19/2023 Start: 08-20-2023 End: 11-19-2023 Hemoglobin A1c in Blood HEMOGLOBIN A1C Lab Routine Body mass index (BMI) of 50-59.9 in adult ([facility]) Expected: 08/20/2023, Expires: 11/19/2023 [facility] Work Phone: Comment on above: Expected: 08/20/2023 , Expires: 11/19/2023 Start: 08-20-2023 End: 11-19-2023 Iron and Iron binding capacity panel - Serum or Plasma IRON AND TIBC Lab Routine Body mass index (BMI) of 50-59.9 in adult ([facility]) Expected: 08/20/2023, Expires: 11/19/2023 [facility] Work Phone: Comment on above: Expected: 08/20/2023 , Expires: 11/19/2023 Start: 08-20-2023 End: 11-19-2023 Lipid 1996 panel - Serum or Plasma LIPID PANEL BASIC Lab Routine High blood cholesterol Body mass index (BMI) of 50-59.9 in adult ([facility]) Expected: 08/20/2023, Expires: 11/19/2023 [facility] Work Phone: Comment on above: Expected: 08/20/2023 , Expires: 11/19/2023 Start: 08-20-2023 End: 11-19-2023 Natriuretic peptide.B prohormone N-Terminal [Mass/volume] in Serum or Plasma NT PRO BNP Lab Routine Body mass index (BMI) of 50-59.9 in adult ([facility]) Expected: 08/20/2023, Expires: 11/19/2023 [facility] Work Phone: Comment on above: Expected: 08/20/2023 , Expires: 11/19/2023 Start: 08-20-2023 End: 11-19-2023 NICOTINE & METAB, UR NICOTINE & METAB, UR Lab Routine Body mass index (BMI) of 50-59.9 in adult ([facility]) Expected: 08/20/2023, Expires: 11/19/2023 [facility] Work Phone: Comment on above: Expected: 08/20/2023 , Expires: 11/19/2023 Start: 08-20-2023 End: 11-19-2023 Thyrotropin [Units/volume] in Serum or Plasma THYROID STIMULATING HORMONE Lab Routine Angel's thyroiditis Body mass index (BMI) of 50-59.9 in adult ([facility]) Expected: 08/20/2023, Expires: 11/19/2023 [facility] Work Phone: Comment on above: Expected: 08/20/2023 , Expires: 11/19/2023 Start: 08-20-2023 End: 11-19-2023 TOXICOLOGY SCREEN, ROUTINE URINE TOXICOLOGY SCREEN, ROUTINE URINE Lab Routine Body mass index (BMI) of 50-59.9 in adult ([facility]) Expected: 08/20/2023, Expires: 11/19/2023 [facility] Work Phone: Comment on above: Expected: 08/20/2023 , Expires: 11/19/2023 Start: 08-20-2023 End: 11-19-2023 VITAMIN B1 (THIAMINE), WHOLE BLOOD VITAMIN B1 (THIAMINE), WHOLE BLOOD Lab Routine Body mass index (BMI) of 50-59.9 in adult (HCC) Expected: 08/20/2023, Expires: 11/19/2023 [facility] Work Phone: Comment on above: Expected: 08/20/2023 , Expires: 11/19/2023 Start: 05-12-2023 Behavioral Health Screening Behavioral Health Screening [facility] Start: 01-10-2023 Covid-19 Vaccine ( season) Covid-19 Vaccine () [facility] Start: 12-02-2021 Plain chest X-ray XR chest 1V portab [facility] Start: 12-02-2021 XR Chest Single view [facility] Work Phone: Start: 2021 Screening for malign ant neoplasm of cervix HPV Testing [facility] Start: 2012 Screening for malign ant neoplasm of cervix Pap Testing [facility] Start: 2010 Hepatitis B Vaccine (1 of 3 - 19+ 3-dose series) Hepatitis B Vaccine (1 of 3 - 19+ 3-dose series) [facility] Start: 2009 Adult BMI Follow Up Plan Adult BMI Follow Up Plan [facility] Start: 2009 HIV screening HIV Screening [facility] Start: 2003 Depression Screening Depression [facility] Start: 2002 DTaP,Tdap and Td Vaccines (6 - Tdap) DTaP,Tdap and Td Vaccines (6 - Tdap) [facility] Start: 2002 Urine microalbumin profile DTaP,Tdap,Td Vaccine (6 - Tdap) [facility] End: 08-19-2024 ECG COMPLETE ECG COMPLETE ECG Routine Body mass index (BMI) of 50-59.9 in adult (HCC) 1 Occurrences starting 08/20/2023 until 08/19/2024 [facility] Work Phone: Comment on above: 1 Occurrences starti ng 08/20/2023 until 08/19/2024 Patient Education [facility] Work Phone: Patient referral [facility] Work Phone: Thyrotropin [Units/volume] in Serum or Plasma TSH Lab Routine Thyroid disease (CMS/HCC) Ordered: 04/22/2024 [facility] Comment on above: Ordered: 04/22/2024 End: 09-18-2024 US Abdomen RUQ US ABD RIGHT UPPER QUADRANT Radiology Routine Body mass index (BMI) of 50-59.9 in adult (HCC) 1 Occurrences starting 08/20/2023 until 09/18/2024 [facility] Work Phone: Comment on above: 1 Occurrences starti ng 08/20/2023 until 09/18/2024 End: 09-18-2024 XR Chest PA and Lateral XR CHEST 2V FRONTAL/LAT Radiology Routine Body mass index (BMI) of 50-59.9 in adult (HCC) 1 Occurrences starting 08/20/2023 until 09/18/2024 [facility] Work Phone: Comment on above: 1 Occurrences starti ng 08/20/2023 until 09/18/2024 [id number] 310 [facility] Work Phone: [facility] c NEGATED: Highlighted row has been ruled out! Planned Goals not documented [id number] 310 IVF Work Phone: Immunizations Immunization Date Immunization Notes Care Provider Fa cili 03-11-2023 influenza virus vacc ine, unspecified formulation Tacho Menendez DO Work Phone: [facility] Healthcare Payers Date Payer Category Payer Self-pay [id number] 2022 Medicaid [id number] 2022 Medicaid [id number] [id number] 1991 Unknown [id number] 2.16.840.1.020082.3.579.2.59 3 1991 Unknown [id number] 2.16.840.1.894763.3.579.2.12 86 1991 Unknown [id number] 2.16.840.1.334676.3.579.2.12 86 1991 Unknown [id number] 2.16.840.1.431856.3.579.2.12 86 1991 Unknown [id number] 2.16.840.1.308309.3.579.2.12 86 1991 Unknown [id number] 2.16.840.1.209784.3.579.2.12 86 1991 Unknown [id number] 2.16.840.1.779541.3.579.2.12 59 1991 Unknown [id number] 2.16.840.1.444401.3.579.2.12 59 1991 Unknown [id number] 2.16.840.1.956817.3.579.2.12 59 1991 Unknown [id number] 2.16.840.1.792386.3.579.2.12 59 1991 Unknown [id number] 2.16.840.1.357987.3.579.2.12 59 1991 Unknown [id number] 2.16.840.1.903864.3.579.2.12 59 1991 Unknown [id number] 2.16.840.1.228235.3.579.2.12 59 1991 Unknown [id number] 2.16.840.1.981609.3.579.2.12 59 1991 Unknown [id number] 2.16.840.1.647899.3.579.2.12 59 1991 Unknown [id number] 2.16.840.1.962115.3.579.2.12 59 1959 Medicaid [id number] Private Health Insurance [facility] [id number] Unknown [id number] Unknown Regular Insurance [id number] Unknown [employer] [id number] Unknown Regular Auto/Medical [id number] Unknown [id number] 2.16.840.1.560232.3.579.2.53 1 Unknown [id number] 2.16.840.1.047521.3.579.2.53 1 Unknown [id number] 2.16.840.1.546901.3.579.2.53 1 Unknown [id number] 2.16.840.1.919690.3.579.2.53 1 Unknown [id number] 2.16.840.1.803512.3.579.2.53 1 Social History Date Type Detail Facility Start: 12-02-2021 End: 05-17-2023 Tobacco smoking status ALIS Never smoked tobacco (finding) [facility] Start: 1990 Sex Assigned At Female [facility] Start: 08-20-2023 End: 10-30-2023 Sex Assigned At [facility] Start: 05-17-2023 End: 08-20-2023 Tobacco use and exposure Smokeless tobacco non-user [facility] Work Phone: Start: 08-20-2023 End: 05-17-2024 Alcohol intake Current drinker of alcohol (finding) [facility] Start: 08-20-2023 End: 10-30-2023 History of Social function [facility] National Score (1-100), lower number is lower risk 86 [facility] Start: 08-20-2023 Alcohol Comment occ [facility] Start: 1990 Sex Assigned At Not on file C [facility] Start: 08-26-2023 Gender identity Identifies as female gender (finding) [facility] Start: 08-26-2023 Sexual orientation Heterosexual (fin ding) [facility] Start: 09-14-2023 [facility] How often to you hav e [...] Start: 01-19-2024 Alcoholic beverage intake Ex-drinker (finding) [facility] Start: 12-13-2014 End: 05-19-2024 Sex Female (finding) [facility] NEGATED: Highlighted row - - [id number] 310 IVF Work Phone: Functional Status Date Assessment Result Facility NEGATED: Highlighted row Functional performance Functional status health issues are not documented Disease [id number] 310 IV[facility] Work Phone: Mental Status Date Assessment Result Facility NEGATED: Highlighted row Cognitive function [Interpretation] Cognitive status health issues are not documented Disease [id number] 310 IV[facility] Work Phone: Clinical Notes 01-08-2023 [...] 06/2019 OTHER SURGICAL HISTORY 2020 IUI 07/10/20 [facility] SALPINGECTOMY Left 2012 ectopic [...] nursing note reviewed. Exam conducted with a cart driver present. Vitals: Estimated body mass index is [...] Tacho Menendez DO documented in this encounter [facility] 05-03-2024 History of Presen t illness Narrative [...] 06/2019 OTHER SURGICAL HISTORY 2020 IUI 07/10/20 [facility] SALPINGECTOMY Left 2011 ectopic [...] of: GERARDO Vazquez documented in this encounter [facility] 04-22-2024 History of Presen t illness [...] 50.0-59.9, adult (CMS/[facility]) Vaginal delivery Social History Tobacco Use Smoking [...] 06/2019 OTHER SURGICAL HISTORY 2020 IUI 07/10/20 [facility] SALPINGECTOMY Left 2011 ectopic [...] nursing note reviewed. Exam conducted with a cart driver present. Vitals: Estimated body mass index is [...] by Priscilla Fernandez LPN on behalf of: Tcaho Menendez DO documented in this encounter [facility] 04-06-2024 History of Presen t illness [...] 06/2019 OTHER SURGICAL HISTORY 2020 IUI 07/10/20 [facility] SALPINGECTOMY Left 2011 ectopic [...] 06/2019 OTHER SURGICAL HISTORY 2020 IUI 07/10/20 [facility] SALPINGECTOMY Left 2012 ectopic [...] nursing note reviewed. Exam conducted with a cart driver present. Vitals: Estimated body mass index is [...] Tacho Menendez DO documented in this encounter [facility] 02-23-2024 History of Presen t illness [...] 50.0-59.9, adult (CMS/[facility]) Vaginal delivery HISTORY PAST MEDICAL HISTORY SOCIAL HISTORY Past Medical History: Diagnosis Date Abdominal pain Breast pain, right Cholelithiasis Encounter for cervical smear to confirm findings of recent normal smear following initial abnormal smear Angel's disease (CMS/HCC) Hypothyroidism (CMS/HCC) Morbid obesity (CMS/HCC) Morbid obesity with BMI of 50.0-59.9, adult ([facility]) Vaginal delivery Social History Tobacco Use Smoking [...] 06/2019 OTHER SURGICAL HISTORY 2020 IUI 07/10/20 [facility] SALPINGECTOMY Left 2011 ectopic [...] nursing note reviewed. Exam conducted with a cart driver present. Vitals: Estimated body mass index is [...] of: GERARDO Vazquez documented in this encounter [facility] 01-20-2024 History of Presen t illness [...] initial abnormal smear Angel's disease (CMS/HCC) Hypothyroidism ([facility]/HCC) Morbid obesity ([facility]) Morbid obesity with BMI of 50.0-59.9, adult ([facility]) Vaginal delivery HISTORY PAST MEDICAL HISTORY SOCIAL HISTORY Past Medical History: Diagnosis Date Abdominal pain Breast pain, right Cholelithiasis Encounter for cervical smear to confirm findings of recent normal smear following initial abnormal smear Angel's disease (CMS/HCC) Hypothyroidism (CMS/HCC) Morbid obesity ([facility]) Morbid obesity with BMI of 50.0-59.9, adult ([facility]) Vaginal delivery Social History Tobacco Use Smoking [...] 06/2019 OTHER SURGICAL HISTORY 2020 IUI 07/10/20 [facility] SALPINGECTOMY Left 2011 ectopic [...] nursing note reviewed. Exam conducted with a cart driver present. Vitals: Estimated body mass index is [...] notified. Pt has follow up appt at [facility] in four weeks. Pt to return to office in four weeks for scheduled OB appt. Documented by Priscilla Fernandez LPN on behalf of: Tacho Menendez DO documented in this encounter [facility] 10-09-2023 Note HNO ID: [id number] Author: LATONIA GREENE, PhD Service: ? Author Type: Psychologist Type: Progress Notes Filed: 10/17/2023 11:09 Note Text: [facility] BARIATRIC SURGERY BEHAVIORAL HEALTH EVALUATION BMI Surgical Pathway Visit type: Psychology Visit DATE OF SERVICE: October 09, 2023 TIME OF SERVICE: 1:00 PM - 2:00 PM COST CENTER: [facility] CPT CODE: - [id number] Virtual Psych Diagnostic Eval BILLING CODE: ENDO PSYL LASHON Greene DATE OF FIRST SERVICE THIS CYCLE: October 09, 2023 SESSION #: 1 I have communicated my name and active licensure. The patient's identity and physical location (see below) were verified at the time of this visit. Either the patient or their legal senior human resources representative has been informed of the risks and benefits of -- and alternatives to -- treatment through a remote evaluation and consents to proceed with the evaluation remotely. This evaluation is NOT intended for forensic, disability or child custody purposes. The patient e-signed a copy of the consent form via [employer] and the [facility] insurance benefits, fees for service, emergency [...] in case of emergency and/or disconnection. [address] [place] [address] (Change address in [facility], was mother) Alternate Fence Machine Operator Bibi Arrieta (Mother) [phone] (Home Phone) Patient identified the following plan to follow in case of emergency: Go to emergency room (nearest is [facility]) or call 911. IDENTIFYING INFORMATION: Ms. [...] pt has l (more content not included)... [facility] 09-22-2023 Telephone encounter Note Can not schedule patient as there is already a patient scheduled for that day and time. Please advise. Thanks Meme Castrejon [facility] 09-22-2023 Telephone encounter Note ----- Message from Anna Ortiz RD sent at 09/17/2023 3:17 PM EDT ----- Regarding: virtual follow up Please schedule for a virtual up 6/7 at 1. The patient is aware, no call needed. Thank you! Anna [facility] 09-22-2023 Miscellaneous Notes Can not schedule [...] Tonya Senior APRN.MERON documented in this encounter [facility] 09-17-[address] - [...] full-liquid diet. Examples: Slim Fast Advanced Nutrition Moody Breakfast Essentials Light Start Drink mixed with [...] Bariatric Multivitamin and Calcium Citrate (total of 4319-6501 mg/day) * take calcium citrate separately from Multivitamin with iron at least 2 hours apart and 4 hours apart from additional calcium www.procarenoSOAK (Smart Operational Agricultural toolKit).[employer] - Bariatric Choice: 4 Complete Multivitamins (chewables) [...] grams per day documented in this encounter [facility] 09-17-2023 Note HNO ID: [id number] Author: ANNA ORTIZ RD Service: ? Author Type: Registered Dietitian Type: Progress Notes Filed: 09/17/2023 15:19 Note Text: The [facility] Nutrition Therapy: Virtual Consult - Initial Assessment I have communicated my name and active licensure. The patient?s identity and physical location were verified at the time of this visit. Either the patient or their legal senior human resources representative has been informed of the risks [...] Guide to Surgery by next session [email or web address] 2. Do not [...] Examples: ? Slim Fast Advanced Nutrition ? Moody Breakfast Essentials ?Light Start? Drink mixed with [...] in the AM, 2 in the PM) www.bariatricfusion.[employer] - FMP Products Health: 1 Bariatric Multivitamin and Calcium Citrate (total of 0153-2627 mg/day) * take calcium citrate separately from Multivitamin with iron at least 2 hours apart and 4 hours apart from additional calcium www.TribaLearning.[employer] - Bariatric Choice: 4 Complete Multivitamins (chewables) per day Www.bariatricMindSumo.[employer] - Bariatric Advantage: 2 Multivitamins and 3 Calcium Citrate Chewables per day * take calcium citrate separately from Multivitamin with iron at least 2 hours apart and 4 hours apart from additional calcium Www.bariatricadvantage.[employer] Start practicing eating slowly, chewing each bite [...] and using Phen (more content not included)... [facility] 09-17-2023 History of Presen t illness Narrative The [facility] Nutrition Therapy: Virtual Consult - Initial Assessment I have communicated my name and active licensure. The patient s identity and physical location were verified at the time of this visit. Either the patient or their legal senior human resources representative has been informed of the risks [...] Your Guide to Surgery by next session [email or web address]?la=[email or web address] 2. Do not skip [...] full-liquid diet. Examples: Slim Fast Advanced Nutrition Moody Breakfast Essentials Light Start Drink mixed with [...] in the AM, 2 in the PM) www.bariatricfusion.[employer] - FMP Products Health: 1 Bariatric Multivitamin and Calcium Citrate (total of 9233-7807 mg/day) * take calcium citrate separately from Multivitamin with iron at least 2 hours apart and 4 hours apart from additional calcium www.TribaLearning.[employer] - Bariatric Choice: 4 Complete Multivitamins (chewables) per day Www.bariatricchoice.com - Bariatric Advantage: 2 Multivitamins and 3 Calcium Citrate Chewables per day * take calcium citrate separately from Multivitamin with iron at least 2 hours apart and 4 hours apart from additional calcium Www.bariatricadvantage.[employer] Start practicing eating slowly, chewing each bite [...] suggested by 180 Initial weight: 295 lbs. [place] body weight is 155 lbs. Excess body weight is 140 lbs. Goal weight pre-op is 281 lbs. Protein needs are estimated at 85gm (1.2 - protein/kg IBW) Patient meets the National Institutes of Health guidelines for weight loss surgery and has [employer] Insurance therefore is required to complete 0 [...] units SIGNATURE: Anna Ortiz RD PATIENT NAME: aJleesa Arrieta DATE: 09/17/2023 TIME: 2:25 PM documented in this encounter [facility] 09-11-2023 Telephone encounter Note Attempted to call pt, re: hypothyroid and low vitamin d levels, no answer, left vm. Tonya Senior APRN.SENIOR WINDOWS SYSTEMS ADMINISTRATOR [facility] 09-01-2023 Note HNO ID: [id number] Author: LATONIA GREENE, PhD Service: ? Author Type: Psychologist Type: Progress Notes Filed: 09/01/2023 13:22 Note Text: [facility] Progress Note 09/01/2023 Billing code: Jc Patient did not attend, cancel, or reschedule this appointment. Provider left HIPAA compliant voicemail and Digifyhart message with contact information to reschedule. Latonia Greene, PhD Clinical Psychologist [facility] 09-01-2023 History of Presen t illness Narrative [facility] Progress Note 09/01/2023 Billing code: Jc Patient did not attend, cancel, or reschedule this appointment. Provider left HIPAA compliant voicemail and Agilyst message with contact information to reschedule. Latonia Greene, PhD Clinical Psychologist documented in this encounter [facility] 08-20-2023 Note HNO ID: [id number] Author: TONYA SENIOR APRN.SENIOR WINDOWS SYSTEMS ADMINISTRATOR Service: ? Author Type: Nurse Practitioner Type: Progress Notes Filed: 08/20/2023 16:21 Note Text: have communicated my name and active licensure. The patient's identity and physical location were verified at the time of this visit. Either the patient or their legal senior human resources representative has been informed of the risks and benefits of -- and alternatives to -- treatment through a remote evaluation and consents to proceed with the evaluation remotely. BMI MEDICAL CONSULT I have communicated my name and active licensure. The patient's identity and physical location were verified at the time of this visit. Either the patient or their legal senior human resources representative has been informed of the risks [...] Exercise: active lifestyle with toddler, works in [employer] at [facility] Functional Capacity: -Walk 4 blocks on [...] HEMOGLOBIN A1C - (more content not included)... [facility] 08-20-2023 History of Presen t illness Narrative Images from the original note were not included. have communicated my name and active licensure. The patient's identity and physical location were verified at the time of this visit. Either the patient or their legal senior human resources representative has been informed of the risks and benefits of -- and alternatives to -- treatment through a remote evaluation and consents to proceed with the evaluation remotely. BMI MEDICAL CONSULT I have communicated my name and active licensure. The patient's identity and physical location were verified at the time of this visit. Either the patient or their legal senior human resources representative has been informed of the risks [...] - US ABD RIGHT UPPER QUADRANT 2. Angle's thyroiditis - ICD9: 245.2, ICD10: E06.3 - THYROID STIMULATING HORMONE 3. High blood cholesterol - ICD9: 272.0, ICD10: E78.00 No meds - COMPREHENSIVE METABOLIC PANEL - LIPID PANEL BASIC Tonya Senior APRN.SENIOR WINDOWS SYSTEMS ADMINISTRATOR -- Recommend that she should not become [...] Obesity Medicine Visit documented in this encounter [facility] 06-13-2023 Evaluation note Encounter Date Diagnosis [...] 8 weeks -Handed patient self referral to [facility] bariatric surgery program -Xovzl-qh-chxi A1c December 2022 5.4%-Follow up in clinic in 8 weeksThis note was created with voice recognition software. 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 Jun, Dietary surveillance and counseling (ICD-10 - [...] for a goal of 5% weight reduction. [facility] 08-30-2023 Evaluation note* Encounter Date Diagnosis [...] on in the past and denies side pknzmdz-Iqndh-hv-care A1c today 5.4%-Follow up in clinic in 4 weeksThis note was created with voice recognition software. 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 Dec, Dietary surveillance and counseling (ICD-10 - [...] premade protein drink for breakfast, by plain Thai yogurt and flavor yourself with cinnamon or [...] with the patient, and documenting clinical information. [facility] Other Chilc complaint+Reason for visit Narrative* Chief Complaint Obesity Reason for Visit Exercise counseling Severe obesity (BMI >= 40) [facility] Work Phone: chief complaint+Reason for visit Narrative* Chief Complaint Pos test, Cramping, Vaginal bleeding Reason for Visit Exercise counseling Severe obesity (BMI >= 40) [facility] Work Phone: Evaluation noteNo assessment information available [facility] Work Phone: Evalulxeie note* Diagnosis Onset Date Resolution Status Exercise counseling acute Severe obesity (BMI >= 40) delilah kevin [facility] Work Phone: Evaluation note* Diagnosis Body mass index (BMI) of 50-59.9 in adult (HCC)- Primary Body Mass Index 50.0-59.9, adult Angel's thyroiditis Chronic lymphocytic thyroiditis High blood cholesterol Pure hypercholesterolemia [facility] Diagnosis NO SHOW- Primary documented [facility] this [facility]* Diagnosis Obesity, Class III, BMI 40-49.9 (morbid obesity) ([facility])- Primary Morbid obesity Dietary counseling Dietary surveillance and counseling documented in this encounter [facility]* Diagnosis Vitamin D deficiency- Primary Unspecified vitamin D deficiency [facility]* Diagnosis 25 weeks gestation of Second [...] unspecified obesity type [facility] Diagnosis Third trimester state, [...] prior , currently documented in this encounter [facility]* Diagnosis Second trimester state, incidental [...] Fallopian tube removed Hospitalization History See Above [facility] Other Hospital Discharge instructions Additional Instructions You may take wgqa-ixx-khmhpdy cough and cold medication as needed You may take yagh-tpi-ezztaxp Tylenol and/or ibuprofen as needed Increase oral fluids Follow-up with family doctor as needed Return to the ER for any acute difficulty breathing high fever vomiting [facility] Discharge instructions Additional Instructions Nothing into vagina until seen by SEAT COVER MAKER May take Tylenol for discomfort Increase oral fluids Follow-up with SEAT COVER MAKER Return to the ER for heavy bleeding greater than a pad an hour feeling dizzy lightheaded or any other [facility]: Hospital Discharge instructions Additional Instructions Follow-up with your OB in the next week.[facility] Work Phone: InstructionsNot on filedocumented in this encounter [facility] Diagnostic Procedure Only (Routine) - Pending Review Specialty Diagnoses / Procedures Referred By Contac t Referred To Contact [facility] Diagnoses Body mass index (BMI) of 50-59.9 in adult (HCC) Procedures US ABD RIGHT UPPER QUADRANT US ABDOMINAL REAL TIME W/IMAGE LIMITED Tonya Senior APRN.CNP [address] [place] [address] [place] [id number] Referral ID Status Reason Start Date Expiration Date Visits Requested Visits Authorized [id number] Pending Review Auto-Generat ed Referral 08/20/2023 09/18/2024 1 1 * Outpatient Procedure (Routine) - Pending Review Specialty Diagnoses / Procedures Referred By Contac t Referred To [facility] Diagnoses Body mass index (BMI) of 50-59.9 in adult (HCC) Procedures ECG COMPLETE ECG ROUTINE ECG W/LEAST 12 LDS W/I&R Tonya Senior APRN.CNP [address] [place] [address] [facility] [place] [address] [place] [id number] Referral ID Status Reason Start Date Expiration Date Visits Requested Visits Authorized [id number] Pending Review Auto-Generat ed Referral 08/20/2023 08/19/2024 1 1 [facility] Summary Purpose Family History No Family [...] section and content) DATE CREATED AUTHOR 10/31/[address] [facility] DATE CREATED AUTHOR AUTHOR'S ORGANIZ ATION 04/23/2020 [facility] DATE CREATED AUTHOR AUTHOR'S ORGANIZ ATION 08/08/2020 [facility] DATE CREATED AUTHOR AUTHOR'S ORGANIZ ATION 08/22/2020 [facility] DATE CREATED AUTHOR AUTHOR'S ORGANIZ ATION 06/11/2022 [facility] DATE CREATED AUTHOR AUTHOR'S ORGANIZ ATION 09/06/2023 [facility] DATE CREATED AUTHOR AUTHOR'S ORGANIZ ATION 10/03/2023 [facility] DATE CREATED AUTHOR AUTHOR'S ORGANIZ ATION 10/18/2023 [facility] DATE CREATED AUTHOR AUTHOR'S ORGANIZ ATION 01/20/2024 [facility] DATE CREATED AUTHOR AUTHOR'S ORGANIZ ATION 04/30/2024 [facility] DATE CREATED AUTHOR AUTHOR'S ORGANIZ ATION 05/23/2024 [facility] EPIC DATE CREATED AUTHOR AUTHOR'S ORGANIZ ATION 05/24/2024 [facility] Care Teams (unrecognized sec tion and content) Team Status: Inactive Member Role Status Dates Services Family Health Primary Care Provider Active Ck To PA-C Emergency Provider Active Team Status: Active Member Role Status Dates Services Family Health Primary Care Provider Active Team Status: Inactive Member Role Status Dates Services Family Health Primary Care Provider Active Marychuy Kyle COMP[employer]ENT [employer]SEM[employer]ER SUPERVISOR-BC Emergency Provider Active Team Status: Inactive Member Role Status Dates Nicholas Michaels DO Attending Provider Active St art: June 13, 2023 End: June 13, 2023 Team Status: Active Member Role Status Dates Services Family Health Primary Care Provider Active Start: June 13, 2023 Nicholas Michaels DO Attending Provider Active St art: June 13, 2023 Team Status: Inactive Member Role Status Dates Services Family [facility] Primary Care Provider Active Start: August 07, 2023 End: August 07, 2023 Nicholas Michaels DO Attending Provider Active St art: August 07, 2023 End: August 07, 2023 Team Status: Inactive Member Role Status Dates Services Family [facility] Primary Care Provider Active Start: October 06, 2023 End: October 06, 2023 Marychuy Kyle 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 SUPERVISOR-BC Emergency Provider Active Start: October 06, 2023 End: October 06, 2023 Team Status: Inactive Member Role Status Dates Services Family [facility] Primary Care Provider Active Start: February 26, 2024 End: February 26, 2024 Ck To PA-C Emergency Provider Active Start: February 26, 2024 End: February 26, 2024 Team Status: Inactive Member Role Status Dates Services Family [facility] Primary Care Provider Active Start: March [...] or prosecute any alcohol or drug abuse patient.[facility] Hospital[facility] the event this information is protected by the Federal Confidentiality of Alcohol and Drug Abuse Patient Records regulations: The Federal rules restrict any use of the information to criminally investigate or prosecute any alcohol or drug abuse patient.[facility] Hospital[facility] the event this information is protected by the Federal Confidentiality of Alcohol and Drug Abuse Patient Records regulations: The Federal rules restrict any use of the information to criminally investigate or prosecute any alcohol or drug abuse patient.[facility] Hospital[facility] the event this information is protected by the Federal Confidentiality of Alcohol and Drug Abuse Patient Records regulations: The Federal rules restrict any use of the information to criminally investigate or prosecute any alcohol or drug abuse patient.[facility] Hospital[facility] the event this information is protected by the Federal Confidentiality of Alcohol and Drug Abuse Patient Records regulations: The Federal rules restrict any use of the information to criminally investigate or prosecute any alcohol or drug abuse patient.[facility] HospitalIn the event this information is protected by the Federal Confidentiality of Alcohol and Drug Abuse Patient Records regulations: The Federal rules restrict any use of the information to criminally investigate or prosecute any alcohol or drug abuse patient.[facility] FOR RECORDS PERTAINING TO PATIENTS WHO [...] BE BASED ON THE PRIMARY CLINICAL RECORDS. [facility] [employer] [facility]. provides no warranty or guarantee of the accuracy or completeness of information in this document.
--- OUTSIDE RECORDS SUMMARY | 2024-05-25 23:44 | XMS_ITS | CCD ---
Author Organization [facility] Care Team Providers Care Medical Technologist Clinical Name Role Phone Agustin Patton Unavailable Unavailable Agustin Patton Unavailable Unavailable Bayron Mccarty Unavailable Unavailable Unavailable Unavailable Unavailable Unavailable Unavailable Unavailable [facility] Primary Care Provider [phone] Emergency Provider DR TACHO MENENDEZ Attending Unavailable DR TACHO MENENDEZ Consulting Unavailable DR TACHO MENENDEZ Admitting Unavailable [facility] Primary Care Provider Anabella [facility] Marychuy E Emergency Provider Nicholas Michaels Unavailable [facility] Services Primary Care Provider DO Nicholas Michaels Attending Provider [phone] Unavailable Primary Care Provider Unavailabl e Unavailable Primary Care Provider Unavailabl e LATONIA GREENE Attending Unavailable TONYA SENIOR Attending Unavailable [facility] Primary Care Provider Anabella [facility] Marychuy E Emergency Provider LATONIA GREENE Referring Unavailable LATONIA GREENE Attending Unavailable ANNA ORTIZ Attending Unavailable TONYA SENIOR Referring Unavailable TONYA SENIOR Referring Unavailable TACHO MENENDEZ Referring Unavailable MAKEDA GROSS Attending Unavailable TACHO MENENDEZ Referring Unavailable Unavailable Primary Care Provider Unavailabl e [facility] Primary Care Provider DEMETRIUS To Emergency Provider [phone] Unavailable Primary Care Provider UnavailDO Devika Nicholas Emergency Provider SHON, TACHO R Referring Unavailable SHON, TACHO R Referring Unavailable SHON, TACHO R Referring Unavailable [facility] Primary Care Provider Ck To PA-C Emergency Provider Devika De La Garza DO Emergency Provider Shon DO, Tacho Attending Provider SHON, TACHO Attending Unavailable MARISSA, MENA Attending Unavailable SHON, TACHO Attending Unavailable MARISSA, MENA Attending Unavailable SHON, TACHO Attending Unavailable MARISSA, MENA Attending Unavailable SHON, TACHO Attending Unavailable MARISSA, MENA Attending Unavailable SHON, TACHO Attending Unavailable [facility] Primary Care Unavaila ble Bullimore, Marychuy E Admitting Unavailable Bullimore, Marychuy E Attending Unavailable Shon, Tacho Admitting Unavailable Shon, Tacho Attending Unavailable [facility] Primary Care Unavaila Nicholas Willams Admitting Unavailable Nicholas Michaels Attending Unavailable Ck To Attending Unavailable [facility] Primary Care Unavaila Ck Castrejon Admitting Unavailable Devika De La Garza Admitting Unavailable Devika De La Garza Attending Unavailable [facility] Services [facility] Care Unavaila ble Medications Current Medications [...] mg/ml oral solution (3 sources) Phenothiazine, Uncompetitive U-nmjhxe-X-aspartate Receptor Antagonist, Sigma-1 Agonist Start: 02-26-2024 take [...] Daily 30 tablet 11 10/30/2023 10/29/2024 Active [place] (No Known Home Meds) (3 sources) Start: 10-06-2023 [place] (No Kn own Home Meds) Active October 06, 2023 12:00am Start: 06-18-2022 [place] (No Kn own Home Meds) Active [...] oral solution (8 sources) alpha-Adrenergic Agonist, Uncompetitive Y-fjjuif-Q-asparta te Receptor Antagonist, Sigma-1 Agonist Start: 2 [...] 26, 2019 11:58am July 28, 2020 6:27pm Eqslikjl-Aau-Ey-Fa () 1 mg Tablet (8 sources) Start: 12-31-2020 End: 07-04-2021 take 1 tablet by mouth once Losjygsg-Npr-Tp-Fa () 1 mg Tablet Discontinued TAB PO December 30, 2020 11:00pm July 04, 2021 9:48am Start: 12-31-2020 End: 07-04-2021 take 1 tablet by mouth once Zazdtoxu-Ggi-Fz-F a () 1 mg Tablet Discontinued TAB [...] 06-19-2020 take 1 capsule by mo [facility] twice daily Progesterone Micronized 100 MG Oral Capsule TAKE 1 CAPSULE Twice daily insert capsules vaginally Quantity: 30 Refills: 3 Bayron Mccarty MD Start : 19-Jun-2020 Active sennosides, half-way 8.6 mg oral tablet (1 source) take 4 tablets by mo [facility] every twenty-four hours Senna 8.6 [...] OUT GROUP B STREP [facility] [address] [facility] [address] 05/17/24 [facility] GROUP B STREP [facility] Strep B Culture (PCN Allergi c)on 05-17-2024 Strep B Culture (PCN Allergic) Strep B Only Cult No Group B Beta Streptococcus Isolated 3 Days PERFORMED BY: [place] [address] PATHOLOGIST SENIOR PREMIUM AUDITOR APOLINAR POLANCO M.D. Normal [facility] Comment on above: Performed By: #### C USTB(PCN) #### [facility] [address] Urinalysis macro (dipstick) panel (U)on 05-17-2024 Bilirubin, UA Negative Negative - 4(70) +++ mg/dL [facility] Blood, UA Negative Negative - 50 Bradley/mcL [facility] Clarity, UA Clear [facility] Color, UA Jessica [facility] Glucose, UA Negative Negative - 1999(110) ++++ mg/dL [facility] Interpretation and review of laboratory results Abnormal [facility] Ketones, UA Negative Negative - 160(16) ++++ mg/dL [facility] Leukocytes, UA Positive Negative - 500+++ Gabby/mcL [facility] Comment on above: small Nitrite, UA Negative Negative - Positive [facility] pH, UA 6.5 5 - 9 [facility] Protein, UA Positive Negative - 1999(20) ++++ mg/dL [facility] Comment on above: 30 Spec Grav, UA 1.03 1 - 1.03 [facility] Urobilinogen, UA 0.2 0.2 - 12 mg/dL [facility] ALL THYROID STIM HORMONEon 1 07-04-2023 TSH Qn 2.422 m[IU]/L [facility] Urinalysis macro (dipstick) panel (U)on 05-03-2024 Bilirubin, UA Negative Negative - 4(70) +++ mg/dL [facility] Blood, UA Negative Negative - 50 Bradley/mcL [facility] Clarity, UA Clear [facility] Color, UA Yellow [facility] Glucose, UA Negative Negative - 1999(110) ++++ mg/dL [facility] Interpretation and review of laboratory results Abnormal [facility] Ketones, UA Negative Negative - 160(16) ++++ mg/dL [facility] Leukocytes, UA Positive Negative - 500+++ Gabby/mcL [facility] Comment on above: small Nitrite, UA Negative Negative - Positive [facility] pH, UA 6 5 - 9 [facility] Protein, UA Negative Negative - 1999(20) ++++ mg/dL [facility] Spec Grav, UA 1.03 1 - 1.03 [facility] Urobilinogen, UA 0.2 0.2 - 12 mg/dL [facility] Urinalysis macro (dipstick) panel (U)on 04-22-2024 Bilirubin, UA Negative Negative - 4(70) +++ mg/dL [facility] Blood, UA Negative Negative - 50 Bradley/mcL [facility] Clarity, UA Clear [facility] Color, UA Yellow [facility] Glucose, UA Negative Negative - 1999(110) ++++ mg/dL [facility] Interpretation and review of laboratory results Abnormal [facility] Ketones, UA Negative Negative - 160(16) ++++ mg/dL [facility] Leukocytes, UA Trace Negative - 500+++ Gabby/mcL [facility] Nitrite, UA Negative Negative - Positive [facility] pH, UA 6 5 - 9 [facility] Protein, UA Positive Negative - 1999(20) ++++ mg/dL [facility] Comment on above: 30 Spec Grav, UA 1.025 1 - 1.03 [facility] Urobilinogen, UA 1.0 0.2 - 12 mg/dL [facility] Urinalysis macro (dipstick) panel (U)on 04-06-2024 Bilirubin, UA Negative Negative - 4(70) +++ mg/dL [facility] Blood, UA Negative Negative - 50 Bradley/mcL [facility] Clarity, UA Clear [facility] Color, UA Yellow [facility] Glucose, UA Negative Negative - 1999(110) ++++ mg/dL [facility] Interpretation and review of laboratory results Abnormal [facility] Ketones, UA Negative Negative - 160(16) ++++ mg/dL [facility] Leukocytes, UA Positive Negative - 500+++ Gabby/mcL [facility] Comment on above: small Nitrite, UA Negative Negative - Positive [facility] pH, UA 7 5 - 9 [facility] Protein, UA Negative Negative - 1999(20) ++++ mg/dL [facility] Spec Grav, UA 1.02 1 - 1.03 [facility] Urobilinogen, UA 0.2 0.2 - 12 mg/dL [facility] Urinalysis macro (dipstick) panel (U)on 03-22-2024 Bilirubin, UA Positive Negative - 4(70) +++ mg/dL [facility] Blood, UA Negative Negative - 50 Bradley/mcL [facility] Clarity, UA Clear [facility] Color, UA Yellow [facility] Glucose, UA Negative Negative - 1999(110) ++++ mg/dL [facility] Interpretation and review of laboratory results Normal [facility] Ketones, UA Positive Negative - 160(16) ++++ mg/dL [facility] Leukocytes, UA Positive Negative - 500+++ Gabby/mcL [facility] Nitrite, UA Negative Negative - Positive [facility] pH, UA 7 5 - 9 [facility] Protein, UA Positive Negative - 1999(20) ++++ mg/dL [facility] Spec Grav, UA 1.025 1 - 1.03 [facility] Urobilinogen, UA 1.0 0.2 - 12 mg/dL [facility] ALL CBC WITH AUTO DIFFon BASOPHILS ABSOLUTE AUTO 0 [facility] Basophils/100 WBC (Bld) 0.5 % 0.2 - 2.0 % [facility] Eosinophils/100 WBC (Bld) 2.4 % 0.9 - 7.0 % [facility] Erythrocyte distribution width (RBC) [Ratio] 13.2 % 11.0 - 15.0 % [facility] Hematocrit (Bld) [Volume fraction] 33.2 % Low 36.0 - 48.0 % [facility] Hemoglobin (Bld) [Mass/Vol] 11.1 g/dL Low 12.0 - 16.0 g/dL [facility] IMMATURE GRANULOCYTES ABS AUTO 0.02 [facility] Immature granulocytes/100 WBC (Bld) 0.3 % 0.0 - 0.5 % [facility] Interpretation and review of laboratory results Abnormal [facility] LYMPHOCYTES ABSOLUTE AUTO 2.1 [facility] Lymphocytes/100 WBC (Bld) 32.5 % 20.5 - 60.0 % [facility] MCH (RBC) [Entitic mass] 30.5 pg 26.7 - 34.0 pg [facility] MCHC (RBC) [Mass/Vol] 33.4 g/dL 29.9 - 35.2 g/dL [facility] MCV (RBC) [Entitic vol] 91.2 fL 81.0 - 99.0 fL [facility] MONOCYTES ABSOLUTE AUTO 0.3 [facility] Monocytes/100 WBC (Bld) 4.6 % 1.7 - 12.0 % [facility] NEUTROPHILS ABSOLUTE AUTO 3.9 [facility] Neutrophils/100 WBC (Bld) 59.7 % 43.0 - 75.0 % [facility] Platelet mean volume (Bld) [Entitic vol] 9.3 fL Low 9.5 - 13.5 fL [facility] TBH EO # 0.2 [facility] TB PLT 342 [facility] TB RBC 3.64 Low [facility] WBC 6.6 [facility] BioFire Not Detectedon 03-05 BioFire Not Detected Not detected Normal Not Detecte [facility] Comment on above: Result Comment: This is a duplicate RP2.1 COVID (PCR) result to be used for statistical tracking purpose only. PERFORMED BY: [place] [address] PATHOLOGIST SENIOR PREMIUM AUDITOR LION STANLEY M.D. Performed By: #### C BC, CMP, HCGQNT #### [address] COVID-19 Detected/Not Detect edOrdered By: Devika De La Garza on 03-05-2024 SARS-CoV-2 (COVID-19) RNA YANET+non-probe Ql (Nph) Not detected Not Detecte [facility] Comment on above: This is a duplicate RP2.1 COVID (PCR) result to be used for statistical tracking purpose only. ECG 12 lead ECGon 03-05-2024 ECG 12 lead ECG [facility] Main [address] [address] [place] [address] Electrocardiograph Report Signed Patient: Jaleesa Arrieta MR#: [id number] [birth year] : 1990 Acct:[id number] Age/Sex: 33 / F ADM Date: 03/05/24 Loc: ER Room: Type: [facility] ER Attending Dr: Ordering Provider: Devika [...] Confirmed by DEVIKA DE LA GARZA DO ([id number]) on 03/06/2024 1:44:25 AM Referred By: Electronically Signed By: DEVIKA DE LA GARZA DO Transcribed By: MUS Signed By Devika De La Garza DO 03/06 0144 Normal [facility] Quick Strepon 03-05-2024 Quick Strep Streptococcus pyogen es Ag [Presence] in Throat by Rapid immunoassay Negative for Group A Strep Antigen Note 1 NOTE 2 Results are those of a screening test. NOTE 3 If clinically indicated please order a culture. NOTE 4 NOTE 5 Reference range = Negative PERFORMED BY: [place] [address] PATHOLOGIST SENIOR PREMIUM AUDITOR LION STANLEY M.D. Normal [facility] Comment on above: Performed By: #### Q S, RESP PANEL UPP., BIOFIRECOVNOTDE #### [address] Respiratory (Upper) Panel, P CRon 03-05-2024 [...] A H3 Blank Space ------ PERFORMED BY: [place] [address] PATHOLOGIST SENIOR PREMIUM AUDITOR LION STANLEY M.D. Normal [facility] Comment on above: Performed By: #### Q S, RESP PANEL UPP., BIOFIRECOVNOTDE #### [address] Respiratory pathogens DNA an d RNA panel - Nasopharynx by YANET with non-probe detectionOrdered By: Devika De La Garza on 03-05-2024 Respiratory pathogens DNA and RNA panel YANET+non-probe (Nph) Respiratory pathogens DNA and RNA panel - Nasopharynx by YANET with non-probe detection [facility] Respiratory pathogens DNA and RNA panel YANET+non-probe (Nph) [facility] Streptococcus pyogenes antig en detectionOrdered By: Devika De La Garza on 03-05-2024 S. pyogenes Ag Ql (Unsp spec) Streptococcus pyogenes antigen detection [facility] S. pyogenes Ag Ql (Unsp spec) [facility] XR chest 1V portableon 03-05 XR chest 1V portable [facility] Main [address] [address] XRay Report Signed Patient: Jaleesa Arrieta MR#: [id number] 94 : 1990 Acct:[id number] Age/Sex: 33 / F ADM Date: 03/05/24 [...] Priscilla Cunningham M.D.03/05/2024 9:34 PM Dictation Location: [place] [address] Transcribed By: [facility] 03/05/242133 Dictated By: Priscilla Cunningham MD 03/05/242130 Signed By: 03/05/242133 Normal [facility] Quick Strepon 02-26-2024 Quick Strep Streptococcus pyogen es Ag [Presence] in Throat by Rapid immunoassay Negative for Group A Strep Antigen Note 1 NOTE 2 Results are those of a screening test. NOTE 3 If clinically indicated please order a culture. NOTE 4 NOTE 5 Reference range = Negative PERFORMED BY: [place] [id number] PATHOLOGIST SENIOR PREMIUM AUDITOR LION STANLEY M.D. Normal [facility] Comment on above: Performed By: #### Q S #### [facility] [address] Streptococcus pyogenes antig en detectionOrdered By: Ck To on 02-26-2024 S. pyogenes Ag Ql (Unsp spec) Streptococcus pyogenes antigen detection [facility] S. pyogenes Ag Ql (Unsp spec) [facility] Urinalysis macro (dipstick) panel (U)on 02-23-2024 Bilirubin, UA Negative Negative - 4(70) +++ mg/dL [facility] Blood, UA Negative Negative - 50 Bradley/mcL [facility] Clarity, UA Clear [facility] Color, UA Yellow [facility] Glucose, UA Negative Negative - 1999(110) ++++ mg/dL [facility] Interpretation and review of laboratory results Abnormal [facility] Ketones, UA Negative Negative - 160(16) ++++ mg/dL [facility] Leukocytes, UA Positive Negative - 500+++ Gabby/mcL [facility] Comment on above: small Nitrite, UA Negative Negative - Positive [facility] pH, UA 7 5 - 9 [facility] Protein, UA Negative Negative - 1999(20) ++++ mg/dL [facility] Spec Grav, UA 1.02 1 - 1.03 [facility] Urobilinogen, UA 0.2 0.2 - 12 mg/dL [facility] ALL THYROID STIM HORMONEon 0 01-26-2024 TSH Qn 2.645 m[IU]/L [facility] Urinalysis macro (dipstick) panel (U)on 01-20-2024 Bilirubin, UA Negative Negative - 4(70) +++ mg/dL [facility] Blood, UA Negative Negative - 50 Bradley/mcL [facility] Clarity, UA Clear [facility] Color, UA Yellow [facility] Glucose, UA Negative Negative - 1999(110) ++++ mg/dL [facility] Interpretation and review of laboratory results Abnormal [facility] Ketones, UA Negative Negative - 160(16) ++++ mg/dL [facility] Leukocytes, UA Trace Negative - 500+++ Gabby/mcL [facility] Nitrite, UA Negative Negative - Positive [facility] pH, UA 6.5 5 - 9 [facility] Protein, UA Negative Negative - 2000(20) ++++ mg/dL [facility] Spec Grav, UA 1.020 1 - 1.03 [facility] Urobilinogen, UA 0.2 0.2 - 12 mg/dL [facility] Alanine aminotransferase [En zymatic activity/volume] in Serum or PlasmaOrdered By: Marychuy Kathleenore on 10-06-2023 ALT [Catalytic activity/Vol] 13 U/L Normal 7-52 [facility] Comment on above: Performed By: #### C BC, CMP, HCGQNT #### [facility] [address] Albumin [Mass/volume] in Ser um or Plasma by Bromocresol green (BCG) dye binding methoOrdered By: Marychuymargaux Kyle on 10-06-2023 Albumin BCG dye [Mass/Vol] 3.8 g/dL 3.5-5.7 [facility] Alkaline phosphatase [Enzyma tic activity/volume] in Serum or PlasmaOrdered By: Marychuy Jeronimoimore on 10-06-2023 ALP [Catalytic activity/Vol] 61 U/L Normal 34-104 [facility] Comment on above: Performed By: #### C BC, CMP, HCGQNT #### [facility] [address] [place] [address] Aspartate aminotransferase [ Enzymatic activity/volume] in Serum or PlasmaOrdered By: Marychuy Phaniimore on 10-06-2023 AST [Catalytic activity/Vol] 13 U/L Normal 13-39 [facility] Comment on above: Performed By: #### C BC, CMP, HCGQNT #### [facility] [address] [place] [address] Automated basophil %Ordered By: Marychuy Kyle on 10-06-2023 Basophils/100 WBC (Bld) 0.6 % Normal . [facility] Comment on above: Performed By: #### C BC, CMP, HCGQNT #### [facility] [address] [place] [address] Automated basophil countOrde red By: Marychuy Kyle on 10-06-2023 Basophils (Bld) [#/Vol] 0.0 10*3/uL Normal 0.0-0.2 [facility] Comment on above: Result Comment: PERF ORMED BY: [place] [address] PATHOLOGIST SENIOR PREMIUM AUDITOR LION STANLEY M.D. Performed By: #### C BC, CMP, HCGQNT #### [address] Automated blood monocyte cou ntOrdered By: Marychuy Bullimore on 10-06-2023 Monocytes (Bld) [#/Vol] 0.5 10*3/uL Normal 0.0-0.8 [facility] Comment on above: Performed By: #### C BC, CMP, HCGQNT #### [address] Automated eosinophil %Ordere d By: Marychuy Bullimore on 10-06-2023 Eosinophils/100 WBC (Bld) 0.7 % Normal . [facility] Comment on above: Performed By: #### C BC, CMP, HCGQNT #### [address] Automated eosinophil countOr dered By: Marychuy Bullimore on 10-06-2023 Eosinophils (Bld) [#/Vol] 0.1 10*3/uL Normal 0.0-0.45 [facility] Comment on above: Performed By: #### C BC, CMP, HCGQNT #### [address] Automated epithelial cells c ount in urine sediment (number/area)Ordered By: Marychuy Bullimore on 10-06-2023 Epithelial cells Auto (Urine sed) [#/Area] 3-4 [HPF] 0-2 [facility] Automated monocyte %Ordered By: Marychuy Bullimore on 10-06-2023 Monocytes/100 WBC (Bld) 6.7 % Normal . [facility] Comment on above: Performed By: #### C BC, CMP, HCGQNT #### [address] Automated neutrophil %Ordere d By: Marychuy Bullimore on 10-06-2023 Neutrophils/100 WBC (Bld) 54.4 % Normal . [facility] Comment on above: Performed By: #### C BC, CMP, HCGQNT #### [facility] [address] Bacteria [Presence] in Urine by AutomatedOrdered By: Marychuy Bullimore on 10-06-2023 Bacteria Auto Ql (U) None seen [HPF] None Seen [facility] Bilirubin Test strip Ql (U)O rdered By: Marychuy Bullimore on 10-06-2023 Bilirubin Ql (U) Negative Negative [facility] Bilirubin.total [Mass/volume ] in Serum or PlasmaOrdered By: Marychuy Bullimore on 10-06-2023 Bilirubin [Mass/Vol] 0.2 mg/dL Low 0.3-1.0 [facility] Comment on above: Performed By: #### C BC, CMP, HCGQNT #### [facility] [address] [place] [address] [place] Calcium [Mass/volume] in Ser um or PlasmaOrdered By: Marychuy Bullimore on 10-06-2023 Calcium [Mass/Vol] 9.4 mg/dL Normal 8.6-10.3 [facility] Comment on above: Performed By: #### C BC, CMP, HCGQNT #### [facility] [address] [place] [address] [place] Carbon dioxide, total [Moles /volume] in Serum or PlasmaOrdered By: Marychuy Bullimore on 10-06-2023 CO2 [Moles/Vol] 25.5 mmol/L Normal 21.0-31.0 [facility] Comment on above: Performed By: #### C BC, CMP, HCGQNT #### [facility] [address] [place] [address] [place] Chloride [Moles/volume] in S sondra or PlasmaOrdered By: Marychuy Bullimore on 10-06-2023 Chloride [Moles/Vol] 105 mmol/L Normal 98-107 [facility] Comment on above: Performed By: #### C BC, CMP, HCGQNT #### [address] Choriogonadotropin.beta subu nit [Units/volume] in Serum or PlasmaOrdered By: Marychuy Kyle on 10-06-2023 HCG.beta subunit Qn 2799.00 m[IU]/mL [facility] Comment on above: Approximate Approxim ate hCG Gestational Age Range (mIU/ml) (weeks)0.2-1 5-50 1-2 50-500 2-3 100-5,000 3-4 500-10,000 4-5 1,000-50,000 5-6 10,000-100,000 6-8 15,000-200,000 8-12 10,000-100,000 Color of Urine by AutoOrdere d By: Marychuy Kyle on 10-06-2023 Color (U) Yellow Normal Yellow [facility] Comment on above: Order Comment: NEED MORE SPECIMEN Name Collection Type:: Clean-Voided Midstream Performed By: #### A DDONUAPLUS #### [address] Complete Blood Count Auto Di ffon 10-06-2023 Mean Corpuscular HGB Conc 34.4 g/dL Normal 32.0-35.0 [facility] Comment on above: Performed By: #### C BC, CMP, HCGQNT #### [place] [address] [place] Monocytes/100 WBC (Bld) 17.37 % Normal 0.00-20.00 [facility] Comment on above: Performed By: #### C BC, CMP, HCGQNT #### [facility] [address] [place] [address] [place] NRBC% 0.2 /100{WBC} Normal 0-0.5 [facility] Comment on above: Performed By: #### C BC, CMP, HCGQNT #### [address] Comprehensive Metabolic Pane panhcito 10-06-2023 Albumin [Mass/Vol] 3.8 g/dL Normal 3.5-5.7 [facility] [facility] Comment on above: Performed By: #### C BC, CMP, HCGQNT #### [address] Creatinine Clr Calc Pharmacy 180.48 Normal [facility] Comment on above: Performed By: #### C BC, CMP, HCGQNT #### [place] [address] [place] GFR/1.73 sq M.predicted MDRD (S/P/Bld) [Vol rate/Area] mL/min/{1.73_m2} Normal [facility] Comment on above: Performed By: #### C BC, CMP, HCGQNT #### [address] Creatinine [Mass/volume] in Serum or PlasmaOrdered By: Marychuy Kyle on 10-06-2023 Creatinine [Mass/Vol] 0.63 mg/dL Normal 0.60-1.20 [facility] Comment on above: Performed By: #### C BC, CMP, HCGQNT #### [place] [address] [place] Dipstick and Microscopicon 0 10-06-2023 Appearance (U) Clear Normal Clear [facility] Comment on above: Order Comment: NEED MORE SPECIMEN Name Collection Type:: Clean-Voided Midstream Performed By: #### A DDONUAPLUS #### [place] [address] [place] Bacteria,Urine None Seen Normal None Seen [facility] Comment on above: Order Comment: NEED MORE SPECIMEN Name Collection Type:: Clean-Voided Midstream Performed By: #### A DDONUAPLUS #### [place] [address] [place] Bilirubin,Urine Negative Normal Negative [facility] Comment on above: Order Comment: NEED MORE SPECIMEN Name Collection Type:: Clean-Voided Midstream Performed By: #### A DDONUAPLUS #### [address] Glucose Ql (U) Normal Normal Normal [facility] Comment on above: Order Comment: NEED MORE SPECIMEN Name Collection Type:: Clean-Voided Midstream Performed By: #### A DDONUAPLUS #### [address] [address] [place] Hyaline Casts,Urine 0-8 Normal 0-8 [facility] Comment on above: Order Comment: NEED MORE SPECIMEN Name Collection Type:: Clean-Voided Midstream Result Comment: PERF ORMED BY: [place] [address] PATHOLOGIST SENIOR PREMIUM AUDITOR LION STANLEY M.D. Performed By: #### A DDONUAPLUS #### [place] [address] [place] Ketones Ql (U) Negative Normal Negative [facility] Comment on above: Order Comment: NEED MORE SPECIMEN Name Collection Type:: Clean-Voided Midstream Performed By: #### A DDONUAPLUS #### [place] [address] [place] Leukocyte esterase Test strip Ql (U) 1+ High Negative [facility] Comment on above: Order Comment: NEED MORE SPECIMEN Name Collection Type:: Clean-Voided Midstream Performed By: #### A DDONUAPLUS #### [place] [address] [place] Nitrite,Urine Negative Normal Negative [facility] Comment on above: Order Comment: NEED MORE SPECIMEN Name Collection Type:: Clean-Voided Midstream Performed By: #### A DDONUAPLUS #### [place] [id number] [place] Occult Blood,Urine Negative Normal Negative [facility] Comment on above: Order Comment: NEED MORE SPECIMEN Name Collection Type:: Clean-Voided Midstream Result Comment: PERF ORMED BY: [place] [address] PATHOLOGIST SENIOR PREMIUM AUDITOR LION STANLEY M.D. Performed By: #### A DDONUAPLUS #### [place] [id number] [place] Protein,Urine Negative Normal Negative [facility] Comment on above: Order Comment: NEED MORE SPECIMEN Name Collection Type:: Clean-Voided Midstream Performed By: #### A DDONUAPLUS #### [place] [address] [place] RBC LM.HPF (Urine sed) [#/Area] 0 /[HPF] Normal 0-4 [facility] Comment on above: Order Comment: NEED MORE SPECIMEN Name Collection Type:: Clean-Voided Midstream Performed By: #### A DDONUAPLUS #### [address] Specificy [place],Urine 1.017 Normal 1.001-1.030 [facility] Comment on above: Order Comment: NEED MORE SPECIMEN Name Collection Type:: Clean-Voided Midstream Performed By: #### A DDONUAPLUS #### [address] Squamous Epithelial Cell,Urine 3-4 High 0-2 [facility] Comment on above: Order Comment: NEED MORE SPECIMEN Name Collection Type:: Clean-Voided Midstream Performed By: #### A DDONUAPLUS #### [address] Urobilinogen,Urine Normal Normal Normal [facility] Comment on above: Order Comment: NEED MORE SPECIMEN Name Collection Type:: Clean-Voided Midstream Performed By: #### A DDONUAPLUS #### [place] [address] [place] WBC,Urine 3-4 Normal 0-4 [facility] Comment on above: Order Comment: NEED MORE SPECIMEN Name Collection Type:: Clean-Voided Midstream Performed By: #### A DDONUAPLUS #### [place] [address] [place] Erythrocyte distribution wid th [Ratio] by Automated countOrdered By: Marychuy Kyle on 10-06-2023 Erythrocyte distribution width (RBC) [Ratio] 13.4 % Normal 11.9-15.3 [facility] Comment on above: Performed By: #### C BC, CMP, HCGQNT #### [facility] [address] [id number] [facility] Erythrocytes [#/area] in Uri ne sediment by Automated countOrdered By: Marychuy Kyle on 10-06-2023 RBC Auto (Urine sed) [#/Area] 0-1 [HPF] 0-4 [facility] Erythrocytes [#/volume] in B lood by Automated countOrdered By: Marychuy Wangore on 10-06-2023 RBC (Bld) [#/Vol] 4.08 10*6/uL Normal 3.60-5.[address] [facility] Comment on above: Performed By: #### C BC, CMP, HCGQNT #### [address] Glucose [Mass/volume] in Ser um or PlasmaOrdered By: Marychuy Jeronimoimore on 10-06-2023 Glucose [Mass/Vol] 100 mg/dL Normal 70-100 [facility] Comment on above: ADA recommended refe rence rangeRandom Glucose Reference Range is dependent on time and content of last meal. Glucose of more than 200 mg/dL in a nonstressed, ambulatory subject supports the diagnosis of Diabetes Mellitus. Result Comment: Mchenry om Glucose Reference Range is dependent on time and content of last meal. Glucose of more than 200 mg/dL in a nonstressed, ambulatory subject supports the diagnosis of Diabetes Mellitus. ADA recommended reference range Performed By: #### C BC, CMP, HCGQNT #### [facility] [address] [place], [place] [id number] [facility] HCG,Quantitativeon HCG,Quantitative 2799.00 m[iU]/mL Normal [facility] Comment on above: Result Comment: Appr oximate Approximate hCG Gestational Age Range (mIU/ml) (weeks) 0.2-1 5-50 1-2 50-500 2-3 100-5,000 3-4 500-10,000 4-5 1,000-50,000 5-6 10,000-100,000 6-8 15,000-200,000 8-12 10,000-100,000 PERFORMED BY: [address] [address] PATHOLOGIST SENIOR PREMIUM AUDITOR LION STANLEY M.D. Performed By: #### C BC, CMP, HCGQNT #### [facility] [address] Hematocrit [Volume Fraction] of Blood by Automated countOrdered By: Marychuy Kyle on 10-06-2023 Hematocrit (Bld) [Volume fraction] 36.7 % Normal 34.0-46.4 [facility] Comment on above: Performed By: #### C BC, CMP, HCGQNT #### [facility] [address] Hemoglobin [Mass/volume] in BloodOrdered By: Marychuy Kyle on 10-06-2023 Hemoglobin (Bld) [Mass/Vol] 12.6 g/dL Normal 11.8-15.4 [facility] Comment on above: Performed By: #### C BC, CMP, HCGQNT #### [facility] [address] [place] [address] Ketones Auto test strip (U) [Mass/Vol]Ordered By: Marychuy Kyle on 10-06-2023 Ketones (U) [Mass/Vol] Negative Negative [facility] Laboratory - UrinalysisOrder ed By: Marychuy Kyle on 10-06-2023 Hyaline casts LM Ql (Urine sed) 0-8 [LPF] 0-8 [facility] Leukocytes [#/area] in Urine sediment by Automated countOrdered By: Marychuy Kyle on 10-06-2023 WBC Auto (Urine sed) [#/Area] 3-4 [HPF] 0-4 [facility] Leukocytes [#/volume] correc inocencia for nucleated erythrocytes in Blood by Automated counOrdered By: Marychuy Kyle on 10-06-2023 WBC corrected for nucl RBC Auto (Bld) [#/Vol] 7.4 10*3/uL 3.8-11.6 [facility] Leukocytes [#/volume] in Blo od by Automated countOrdered By: Marychuy Kyle on 10-06-2023 WBC (Bld) [#/Vol] 7.4 10*3/uL Normal 3.8-11.6 [facility] Comment on above: Performed By: #### C BC, CMP, HCGQNT #### [facility] [address] [place] [address] Lymphocytes [#/volume] in Bl ood by Automated countOrdered By: Marychuy Bullimore on 10-06-2023 Lymphocytes (Bld) [#/Vol] 2.8 10*3/uL Normal 1.00-4.8 [facility] Comment on above: Performed By: #### C BC, CMP, HCGQNT #### [address] Lymphocytes/100 leukocytes i n Blood by Automated countOrdered By: Marychuy Bullimore on 10-06-2023 Lymphocytes/100 WBC (Bld) 37.6 % Normal . [facility] Comment on above: Performed By: #### C BC, CMP, HCGQNT #### [facility] [address] [place] [address] MCH [Entitic mass] by Automa inocencia countOrdered By: Marychuy Bullimore on 10-06-2023 MCH (RBC) [Entitic mass] 31.0 pg Normal 24.7-34.3 [facility] Comment on above: Performed By: #### C BC, CMP, HCGQNT #### [address] MCHC Auto (RBC) [Mass/Vol]Or dered By: Marychuy Bullimore on 10-06-2023 MCHC (RBC) [Mass/Vol] 34.4 g/dL 32.0-35.0 [facility] MCV [Entitic volume] by Auto mated countOrdered By: Marychuy Phaniimore on 10-06-2023 MCV (RBC) [Entitic vol] 90.1 fL Normal 80-100 [facility] Comment on above: Performed By: #### C BC, CMP, HCGQNT #### [address] Monocyte distribution width [Entitic volume] in Blood by AutomatedOrdered By: Marychuy Bullimore on 10-06-2023 Monocyte distribution width Auto (Bld) [Entitic vol] 17.37 % 0.00-20.00 [facility] Neutrophils [#/volume] in Bl ood by Automated countOrdered By: Marychuy Kyle on 10-06-2023 Neutrophils (Bld) [#/Vol] 4.0 10*3/uL Normal 1.8-7.7 [facility] Comment on above: Performed By: #### C BC, CMP, HCGQNT #### [facility] [address] Nitrite Test strip Ql (U)Ord ered By: Marychuy Kyle on 10-06-2023 Nitrite Ql (U) Negative Negative [facility] No Panel InformationOrdered By: Marychuy Kyle on 10-06-2023 Estimated GFR (CKD-EPI) > 60.0 mL/Min [facility] Creatinine Clearance (Chem 180.48 [facility] Nucleated erythrocytes [Pres ence] in Blood by Automated countOrdered By: Marychuy Kyle on 10-06-2023 Nucleated RBC Auto Ql (Bld) 0.2 /100{WBC} 0-0.5 [facility] Platelet mean volume [Entiti c volume] in Blood by Automated countOrdered By: Marychuy Kyle on 10-06-2023 Platelet mean volume (Bld) [Entitic vol] 7.5 fL Normal 6.3-10.7 [facility] Comment on above: Performed By: #### C BC, CMP, HCGQNT #### [facility] [address] Platelets [#/volume] in Bloo d by Automated countOrdered By: Marychuy Kyle on 10-06-2023 Platelets (Bld) [#/Vol] 367 10*3/uL Normal 150-450 [facility] Comment on above: Performed By: #### C BC, CMP, HCGQNT #### [facility] [address] [place] [address] [place] Potassium [Moles/volume] in Serum or PlasmaOrdered By: Marychuy Kyle on 10-06-2023 Potassium [Moles/Vol] 4.1 mmol/L Normal 3.5-5.1 [facility] Comment on above: Performed By: #### C BC, CMP, HCGQNT #### [address] Protein Auto test strip (U) [Mass/Vol]Ordered By: Marychuy Bullimore on 10-06-2023 Protein (U) [Mass/Vol] Negative Negative [facility] Protein [Mass/volume] in Ser um or PlasmaOrdered By: Marychuy Bullimore on 10-06-2023 Protein [Mass/Vol] 7.4 g/dL Normal 6.4-8.9 [facility] Comment on above: Performed By: #### C BC, CMP, HCGQNT #### [address] Serum globulin measurement b y calculation (mass/volume)Ordered By: Marychuy Bullimore on 10-06-2023 Globulin (S) [Mass/Vol] 3.6 g/dL [facility] Comment on above: Performed By: #### C BC, CMP, HCGQNT #### [address] Serum or plasma albumin/glob ulin mass ratioOrdered By: Marychuy Bullimore on 10-06-2023 Albumin/Globulin [Mass ratio] 1.1 {ratio} [facility] Comment on above: Performed By: #### C BC, CMP, HCGQNT #### [address] Serum or plasma anion gap de terminationOrdered By: Marychuy Bullimore on 10-06-2023 Anion gap [Moles/Vol] 12.6 mmol/L Normal 6.0-15.0 [facility] Comment on above: Performed By: #### C BC, CMP, HCGQNT #### [address] Sodium [Moles/volume] in Ser um or PlasmaOrdered By: Marychuy Bullimore on 05-27-2024 Sodium [Moles/Vol] 139 mmol/L Normal 136-145 [facility] Comment on above: Performed By: #### C BC, CMP, HCGQNT #### [facility] [address] [place] [address] Specific gravity Auto test s trip (U) [Rel density]Ordered By: Marychuy Kyle on 10-06-2023 Specific gravity (U) [Rel density] 1.017 1.001-1.030 [facility] Urea nitrogen [Mass/volume] in Serum or PlasmaOrdered By: Marychuy Kyle on 10-06-2023 Urea nitrogen [Mass/Vol] 7 mg/dL Normal 7-25 [facility] Comment on above: Performed By: #### C BC, CMP, HCGQNT #### [address] Urine clarity by refractomet ry automatedOrdered By: Marychuy Kyle on 10-06-2023 Clarity Refractometry automated (U) Clear Clear [facility] Urine glucose measurement by automated test strip (mass/volume)Ordered By: Marychuy Kyle on 10-06-2023 Glucose Auto test strip (U) [Mass/Vol] Normal mg/dL Normal [facility] Urine hemoglobin detection b y automated test stripOrdered By: Marychuy Kyle on 10-06-2023 Hemoglobin Auto test strip Ql (U) Negative Negative [facility] Urine leukocyte esterase det ection by automated test stripOrdered By: Marychuy Kyle on 10-06-2023 Leukocyte esterase Auto test strip Ql (U) 1+ Negative [facility] Urine pH measurement by auto mated test stripOrdered By: Marychuy Kyle on 10-06-2023 pH (U) 7.0 [pH] Normal 5.0-9.0 [facility] Comment on above: Order Comment: NEED MORE SPECIMEN Name Collection Type:: Clean-Voided Midstream Performed By: #### A DDONUAPLUS #### [address] Urobilinogen Auto test strip (U) [Mass/Vol]Ordered By: Marychuy Kyle on 05-27-2024 Urobilinogen (U) [Mass/Vol] Normal mg/dL Normal [facility] Basia 09-11-2023 LIZ Telephone (MOGEN) -------- JALEESA ARRIETA ([id number]) 1990 F Date Time Provider Department 09/11/23 [...] Status:Closed by TONYA SENIOR on 09/23/23 Normal [facility] NICOTINE AND METAB, URon URIN ANABASINE QUANT <5 Normal [facility] Comment on above: Order Comment: Speci men Type: URINE SPECIMEN Ordering Facility: [facility] Address: [address] [place] [address] Performed By: #### U NICOT #### [facility] CLIA [id number] [address] [place] [address] URIN COTININE QUANT <15 Normal [facility] Comment on above: Order Comment: Speci men Type: URINE SPECIMEN Ordering Facility: [facility] Address: [address] [place] [address] Performed By: #### U NICOT #### [facility] CLIA [id number] [address] [place] [address] URIN NICOTINE QUANT <15 Normal [facility] Comment on above: Order Comment: Speci men Type: URINE SPECIMEN Ordering Facility: [facility] Address: [address] [place] [address] Result Comment: INTE RPRETIVE INFORMATION: Nicotine and Metabolites, Urine, Quantitative Methodology: Quantitative Liquid Chromatography-Tandem Mass Spectrometry Positive cutoff: Nicotine 15 ng/mL Cotinine 15 ng/mL 3-NH-Hbozsmnl 50 ng/mL Anabasine 5 ng/mL For medical [...] developed and its performance characteristics determined by [facility]. It has not been cleared or approved by the [place] Food and Drug Administration. This test was performed in a CLIA certified laboratory and is intended for clinical purposes. Performed By: [facility] [address] [place] [address] Corn Cooker: Rex Zuleta MD, PhD CLIA Number: [id number] Performed By: #### U NICOT #### [facility] CLIA [id number] [address] [place] [address] URINE 3 [place] COTININE <50 Normal [facility] Comment on above: Order Comment: Speci men Type: URINE SPECIMEN Ordering Facility: [facility] Address: [address] [place] [address] Performed By: #### U NICOT #### [facility] CLIA [id number] [address] [place] [address] TOXICOLOGY SCREEN, ROUTINE U RINEon 09-08-2023 Amphetamines Confirm (U) [Mass/Vol] Negative Normal Negative [facility] Comment on above: Order Comment: Speci men Type: URINE SPECIMEN Ordering Facility: [facility] Address: [address] [place] [address] Result Comment: Cuto ff threshold at 1000 ng/mL. Performed By: #### U TOX2 #### [facility] CLIA [id number] [address] [place] [address] [place] BARBITURATES, URINE Negative Normal Negative [facility] Comment on above: Order Comment: Speci men Type: URINE SPECIMEN Ordering Facility: [facility] Address: [address] [place] [address] Result Comment: Cuto ff threshold at 200 ng/mL. Performed By: #### U TOX2 #### [facility] CLIA [id number] [address] [place] [address] [place] BENZODIAZEPINES, UR Negative Normal Negative [facility] Comment on above: Order Comment: Speci men Type: URINE SPECIMEN Ordering Facility: [facility] Address: [address] [place] [address] Result Comment: Cuto ff threshold at 200 ng/mL. Performed By: #### U TOX2 #### [facility] CLIA [id number] [address] [place] [address] [place] Cannabinoids Screen Ql (U) Negative Normal Negative [facility] Comment on above: Order Comment: Speci men Type: URINE SPECIMEN Ordering Facility: [facility] Address: [address] [place] [address] Result Comment: Cuto ff threshold at 50 ng/mL. Performed By: #### U TOX2 #### [facility] CLIA [id number] [address] [place] [address] [place] Cocaine Ql (U) Negative Normal Negative [facility] Comment on above: Order Comment: Speci men Type: URINE SPECIMEN Ordering Facility: [facility] Address: [address] [place] [address] Result Comment: Cuto ff threshold at 300 ng/mL. Performed By: #### U TOX2 #### [facility] CLIA [id number] [address] [place] [address] [place] Ethanol (U) [Mass/Vol] <11 Normal <11 [facility] Comment on above: Order Comment: Speci men Type: URINE SPECIMEN Ordering Facility: [facility] Address: [address] [place] [address] Performed By: #### U TOX2 #### [facility] CLIA [id number] [address] [place] [address] [place] Opiates Screen Ql (U) Negative Normal Negative [facility] Comment on above: Order Comment: Speci men Type: URINE SPECIMEN Ordering Facility: [facility] Address: [address] [place] [address] Result Comment: Cuto ff threshold at 300 ng/mL. Performed By: #### U TOX2 #### [facility] CLIA [id number] [address] [place] [address] [place] oxyCODONE cutoff Screen (U) [Mass/Vol] Negative Normal Negative [facility] Comment on above: Order Comment: Speci men Type: URINE SPECIMEN Ordering Facility: [facility] Address: [address] [place] [address] Result Comment: Cuto ff threshold at 100 ng/mL. Performed By: #### U TOX2 #### [facility] CLIA [id number] [address] [place] [address] [place] Phencyclidine Ql (U) Negative Normal Negative [facility] Comment on above: Order Comment: Speci men Type: URINE SPECIMEN Ordering Facility: [facility] Address: [address] [place] [address] Result Comment: Cuto ff threshold at 25 ng/mL. Performed By: #### U TOX2 #### [facility] CLIA [id number] [address] [place] [address] [place] 25(OH)D3 SerPl-mCncon 2023 25-hydroxyvitamin D3 [Mass/Vol] 11.9 ng/mL Low 31.0-80.0 [facility] Comment on above: Order Comment: Speci men Type: BLOOD SPECIMEN Ordering Facility: [facility] Address: [address] [place] [address] Performed By: #### 2 276-4, 2132-01, 2283-12 #### [facility] CLIA [id number] [address] [place] [address] [place] CBC W Auto Differential pane l (Bld)on 09-05-2023 Basophils (Bld) [#/Vol] 10*3/uL Normal <0.11 [facility] Comment on above: Order Comment: Speci men Type: BLOOD SPECIMEN Ordering Facility: [facility] Address: [address] [place] [address] Performed By: #### 2 276-4, 2132-01, 2283-12 #### [facility] CLIA [id number] [address] [place] [address] [place] Basophils/100 WBC (Bld) 0.3 % Normal [facility] Comment on above: Order Comment: Speci men Type: BLOOD SPECIMEN Ordering Facility: [facility] Address: [address] [place] [address] Performed By: #### 2 276-4, 2132-01, 2283-12 #### [facility] CLIA [id number] [address] [place] [address] [place] Differential cell count method Nom (Bld) Auto Normal [facility] Comment on above: Order Comment: Speci men Type: BLOOD SPECIMEN Ordering Facility: [facility] Address: [address] [place] [address] Performed By: #### 2 276-4, 2132-01, 2283-12 #### [facility] CLIA [id number] [address] [place] [address] [place] Eosinophils (Bld) [#/Vol] 0.09 10*3/uL Normal <0.46 [facility] Comment on above: Order Comment: Speci men Type: BLOOD SPECIMEN Ordering Facility: [facility] Address: [address] [place] [address] Performed By: #### 2 276-4, 2132-01, 2283-12 #### [facility] CLIA [id number] [address] [place] [address] [place] Eosinophils/100 WBC (Bld) 1.3 % Normal [facility] Comment on above: Order Comment: Speci men Type: BLOOD SPECIMEN Ordering Facility: [facility] Address: [address] [place] [address] Performed By: #### 2 276-4, 2132-01, 2283-12 #### [facility] CLIA [id number] [address] [place] [address] [place] Erythrocyte distribution width (RBC) [Ratio] 12.6 % Normal 11.5-15.0 [facility] Comment on above: Order Comment: Speci men Type: BLOOD SPECIMEN Ordering Facility: [facility] Address: [address] [place] [address] Performed By: #### 2 276-4, 2132-01, 2283-12 #### [facility] CLIA [id number] [address] [place] [address] [place] Hematocrit (Bld) [Volume fraction] 38.0 % Normal 36.0-46.0 [facility] System Comment on above: Order Comment: Speci men Type: BLOOD SPECIMEN Ordering Facility: [facility] Address: [address] [place] [address] Performed By: #### 2 276-4, 2132-01, 2283-12 #### [facility] CLIA [id number] [address] [place] [address] [place] Hemoglobin (Bld) [Mass/Vol] 12.8 g/dL Normal 11.5-15.5 [facility] Comment on above: Order Comment: Speci men Type: BLOOD SPECIMEN Ordering Facility: [facility] Address: [address] [place] [address] Performed By: #### 2 276-4, 2132-01, 2283-12 #### [facility] CLIA [id number] [address] [place] [address] [place] Immature granulocytes (Bld) [#/Vol] 10*3/uL Normal <0.10 [facility] Comment on above: Order Comment: Speci men Type: BLOOD SPECIMEN Ordering Facility: [facility] Address: [address] [place] [address] Performed By: #### 2 276-4, 2132-01, 2283-12 #### [facility] CLIA [id number] [address] [place] [address] [place] Immature granulocytes/100 WBC (Bld) 0.1 % Normal [facility] Comment on above: Order Comment: Speci men Type: BLOOD SPECIMEN Ordering Facility: [facility] Address: [address] [place] [address] Performed By: #### 2 276-4, 2132-01, 2283-12 #### [facility] CLIA [id number] [address] [place] [address] [place] Lymphocytes (Bld) [#/Vol] 3.49 10*3/uL Normal 1.00-4.00 [facility] Comment on above: Order Comment: Speci men Type: BLOOD SPECIMEN Ordering Facility: [facility] Address: [address] [place] [address] Performed By: #### 2 276-4, 2132-01, 2283-12 #### [facility] CLIA [id number] [address] [place] [address] [place] Lymphocytes/100 WBC (Bld) 48.6 % Normal [facility] Comment on above: Order Comment: Speci men Type: BLOOD SPECIMEN Ordering Facility: [facility] Address: [address] [place] [address] Performed By: #### 2 276-4, 2132-01, 2283-12 #### [facility] CLIA [id number] [address] [place] [address] [place] MCH (RBC) [Entitic mass] 30.0 pg Normal 26.0-34.0 [facility] Comment on above: Order Comment: Speci men Type: BLOOD SPECIMEN Ordering Facility: [facility] Address: [address] [place] [address] Performed By: #### 2 276-4, 2132-01, 2283-12 #### [facility] CLIA [id number] [address] [place] [address] [place] MCHC (RBC) [Mass/Vol] 33.7 g/dL Normal 30.5-36.0 [facility] Comment on above: Order Comment: Speci men Type: BLOOD SPECIMEN Ordering Facility: [facility] Address: [address] [place] [address] Performed By: #### 2 276-4, 2132-01, 2283-12 #### [facility] CLIA [id number] [address] [place] [address] [place] MCV (RBC) [Entitic vol] 89.2 fL Normal 80.0-100.0 [facility] Comment on above: Order Comment: Speci men Type: BLOOD SPECIMEN Ordering Facility: [facility] Address: [address] [place] [address] Performed By: #### 2 276-4, 2132-01, 2283-12 #### [facility] CLIA [id number] [address] [place] [address] [place] Monocytes (Bld) [#/Vol] 0.48 10*3/uL Normal <0.87 [facility] Comment on above: Order Comment: Speci men Type: BLOOD SPECIMEN Ordering Facility: [facility] Address: [address] [place] [address] Performed By: #### 2 276-4, 2132-01, 2283-12 #### [facility] CLIA [id number] [address] [place] [address] [place] Monocytes/100 WBC (Bld) 6.7 % Normal [facility] Comment on above: Order Comment: Speci men Type: BLOOD SPECIMEN Ordering Facility: [facility] Address: [address] [place] [address] Performed By: #### 2 276-4, 9, 2283-12 #### [facility] CLIA [id number] [address] [place] [address] [place] Neutrophils (Bld) [#/Vol] 3.09 10*3/uL Normal 1.45-7.50 [facility] Comment on above: Order Comment: Speci men Type: BLOOD SPECIMEN Ordering Facility: [facility] Address: [address] [place] [address] Performed By: #### 2 276-4, 2132-01, 2283-12 #### [facility] CLIA [id number] [address] [place] [address] [place] Neutrophils/100 WBC (Bld) 43.0 % Normal [facility] Comment on above: Order Comment: Speci men Type: BLOOD SPECIMEN Ordering Facility: [facility] Address: [address] [place] [address] Performed By: #### 2 276-4, 2132-01, 2283-12 #### [facility] CLIA [id number] [address] [place] [address] [place] Nucleated RBC (Bld) [#/Vol] 10*3/uL Normal <0.01 [facility] Comment on above: Order Comment: Speci men Type: BLOOD SPECIMEN Ordering Facility: [facility] Address: [address] [place] [address] Performed By: #### 2 276-4, 2132-01, 2283-12 #### [facility] CLIA [id number] [address] [place] [address] [place] Nucleated RBC/100 WBC (Bld) [Ratio] 0.0 /100 WBC Normal [facility] Comment on above: Order Comment: Speci men Type: BLOOD SPECIMEN Ordering Facility: [facility] Address: [address] [place] [address] Performed By: #### 2 276-4, 2132-01, 2283-12 #### [facility] CLIA [id number] [address] [place] [address] [place] Platelet mean volume (Bld) [Entitic vol] 9.2 fL Normal 9.0-12.7 [facility] Comment on above: Order Comment: Speci men Type: BLOOD SPECIMEN Ordering Facility: [facility] Address: [address] [place] [address] Performed By: #### 2 276-4, 2132-01, 2283-12 #### [facility] CLIA [id number] [address] [place] [address] [place] Platelets (Bld) [#/Vol] 361 10*3/uL Normal 150-400 [facility] Comment on above: Order Comment: Speci men Type: BLOOD SPECIMEN Ordering Facility: [facility] Address: [address] [place] [address] Performed By: #### 2 276-4, 2132-01, 2283-12 #### [facility] CLIA [id number] [address] [place] [address] [place] RBC (Bld) [#/Vol] 4.26 10*6/uL Normal 3.90-5.20 [facility] Comment on above: Order Comment: Speci men Type: BLOOD SPECIMEN Ordering Facility: [facility] Address: [address] [place] [address] Performed By: #### 2 276-4, 2132-01, 2283-12 #### [facility] CLIA [id number] [address] [place] [address] [place] WBC (Bld) [#/Vol] 7.18 10*3/uL Normal 3.70-11.00 [facility] Comment on above: Order Comment: Speci men Type: BLOOD SPECIMEN Ordering Facility: [facility] Address: [address] [place] [address] Performed By: #### 2 276-4, 2132-9, 2284-8 #### [facility] CLIA [id number] [address] [place] [address] [place] [address] [place] Comprehensive metabolic 2000 panelon 09-05-2023 Albumin [Mass/Vol] 4.0 g/dL Normal 3.9-4.[address] [facility] Comment on above: Order Comment: Speci men Type: BLOOD SPECIMEN Ordering Facility: [facility] Address: [address] [place] [address] Performed By: #### 2 4323-8 #### [facility] CLIA [id number] [address] [place] [address] ALP [Catalytic activity/Vol] 91 U/L Normal 34-123 [facility] Comment on above: Order Comment: Speci men Type: BLOOD SPECIMEN Ordering Facility: [facility] Address: [address] [place] [address] Performed By: #### 2 4323-8 #### [facility] CLIA [id number] [address] [place] [address] ALT [Catalytic activity/Vol] 15 U/L Normal 7-38 [facility] Comment on above: Order Comment: Speci men Type: BLOOD SPECIMEN Ordering Facility: [facility] Address: [address] [place] [address] Performed By: #### 2 4323-8 #### [facility] CLIA [id number] [address] [place] [address] Anion gap [Moles/Vol] 10 mmol/L Normal 9-18 [facility] Comment on above: Order Comment: Speci men Type: BLOOD SPECIMEN Ordering Facility: [facility] Address: [address] [place] [address] Performed By: #### 2 4323-8 #### [facility] CLIA [id number] [address] [place] [address] AST [Catalytic activity/Vol] 13 U/L Normal 13-35 [facility] Comment on above: Order Comment: Speci men Type: BLOOD SPECIMEN Ordering Facility: [facility] Address: [address] [place] [address] Performed By: #### 2 4323-8 #### [facility] CLIA [id number] [address] [place] [address] Bilirubin [Mass/Vol] 0.3 mg/dL Normal 0.2-1.3 [facility] Comment on above: Order Comment: Speci men Type: BLOOD SPECIMEN Ordering Facility: [facility] Address: [address] [place] [address] Performed By: #### 2 4323-8 #### [facility] CLIA [id number] [address] [place] [address]26 Calcium [Mass/Vol] 9.5 mg/dL Normal 8.5-10.[address] [facility] Comment on above: Order Comment: Speci men Type: BLOOD SPECIMEN Ordering Facility: [facility] Address: [address] [place] [address] Performed By: #### 2 4323-8 #### [facility] CLIA [id number] [address] [place] [address]96 Chloride [Moles/Vol] 106 mmol/L High 97-105 [facility] Comment on above: Order Comment: Speci men Type: BLOOD SPECIMEN Ordering Facility: [facility] Address: [address] [place] [address] Performed By: #### 2 4323-8 #### [facility] CLIA [id number] [address] [place] [address]86 CO2 [Moles/Vol] 26 mmol/L Normal 22-30 [facility] Comment on above: Order Comment: Speci men Type: BLOOD SPECIMEN Ordering Facility: [facility] Address: [address] [place] [address] Performed By: #### 2 4323-8 #### [facility] CLIA [id number] [address] [place] [address] Creatinine [Mass/Vol] 0.75 mg/dL Normal 0.58-0.96 [facility] Comment on above: Order Comment: Speci men Type: BLOOD SPECIMEN Ordering Facility: [facility] Address: [address] [place] [id number] Performed By: #### 2 4323-8 #### [facility] CLIA [id number] [address] [place] [address] Creatinine and Glomerular filtration rate.predicted panel (S/P/Bld) 109 mL/min/1.73m??? Normal >=60 [facility] Comment on above: Order Comment: Speci men Type: BLOOD SPECIMEN Ordering Facility: [facility] Address: [address] [place] [address] Result Comment: Stephani mated Glomerular Filtration Rate [...] 4323-8 #### [facility] CLIA [id number] [address] [place] [address] Glucose [Mass/Vol] 104 mg/dL High 74-[address] [facility] Comment on above: Order Comment: Speci men Type: BLOOD SPECIMEN Ordering Facility: [facility] Address: [address] [id number] Result Comment: The [place] [employer] (ADA) provides guidance for cutoff [...] Standards of Medical Care in Diabetes 2016, [place] [employer]. Diabetes Care. 2016.39(Suppl 1). Performed By: #### 2 4323-8 #### [facility] CLIA [id number] [address] [place] [address] Potassium [Moles/Vol] 4.2 mmol/L Normal 3.7-5.1 [facility] Comment on above: Order Comment: Speci men Type: BLOOD SPECIMEN Ordering Facility: [facility] Address: [address] [place] [address] Performed By: #### 2 4323-8 #### [facility] CLIA [id number] [address] [place] [address] Protein [Mass/Vol] 7.4 g/dL Normal 6.3-8.[address] [facility] Comment on above: Order Comment: Speci men Type: BLOOD SPECIMEN Ordering Facility: [facility] Address: [address] [place] [address] Performed By: #### 2 4323-8 #### [facility] CLIA [id number] [address] [place] [address] Sodium [Moles/Vol] 142 mmol/L Normal 136-[address] [facility] Comment on above: Order Comment: Speci men Type: BLOOD SPECIMEN Ordering Facility: [facility] Address: [address] [place] [address] Performed By: #### 2 4323-8 #### [facility] CLIA [id number] [address] [place] [address]208 Urea nitrogen [Mass/Vol] 12 mg/dL Normal 7-21 [facility] Comment on above: Order Comment: Speci men Type: BLOOD SPECIMEN Ordering Facility: [facility] Address: [address] [place] [address] Performed By: #### 2 4323-8 #### [facility] CLIA [id number] [address] [place], [place] [address] Ferritin SerPl-mCncon 2023 Ferritin [Mass/Vol] 86.7 ng/mL Normal 14.7-205.1 [facility] Comment on above: Order Comment: Laury bradshaw Type: BLOOD SPECIMEN Ordering Facility: [facility] Address: [address] [place] [address] Performed By: #### 2 276-4, 9, 8 #### [facility] CLIA [id number] [address] [place] [address] [place] Folate SerPl-mCncon 09-05-19 Folate [Mass/Vol] 12.0 ng/mL Normal >4.7 [facility] Comment on above: Order Comment: Laury bradshaw Type: BLOOD SPECIMEN Ordering Facility: [facility] Address: [address] [place] [address] Performed By: #### 2 276-4, 2132-01, 2283-12 #### [facility] CLIA [id number] [address] [place] [address] [place] H. pylori IgG IA Qlon 2023 H. PYLORI IGG, QUAL Negative Normal Negative [facility] Comment on above: Order Comment: Laury bradshaw Type: BLOOD SPECIMEN Ordering Facility: [facility] Address: [address] [place] [address] Result Comment: Cash ot exclude H. pylori infection if the specimen collected 3-4 weeks after onset of symptoms. Performed By: #### 2 276-4, 9, 2283-12 #### [facility] CLIA [id number] [address] [place] [address] [place] HbA1c (Bld)on 09-05-2023 Average glucose Estimated from glycated hemoglobin (Bld) [Mass/Vol] 108 mg/dL Normal [facility] Comment on above: Order Comment: Speci men Type: BLOOD SPECIMEN Ordering Facility: [facility] Address: [address] [place] [address] Result Comment: eAG: (Estimated average glucose) is a calculated value from HgbA1c and is in store marketing representative of the average blood glucose level in the last 2-3 month period. Performed By: #### 5 5454-3 #### [facility] CLIA [id number] [address] [place] [address] [place] HbA1c (Bld) [Mass fraction] 5.4 % Normal 4.3-5.6 [facility] Comment on above: Order Comment: Laury bradshaw Type: BLOOD SPECIMEN Ordering Facility: [facility] Address: [address] [place] [address] Result Comment: [place] Diabetes Association guidelines indicate that patients with HgbA1c in the range 5.7-6.4% are at increased risk for development of diabetes, and intervention by lifestyle modification may be beneficial. HgbA1c greater or equal to 6.5% is considered diagnostic of diabetes. Performed By: #### 5 5454-3 #### [facility] CLIA [id number] [address] [place] [address] [place] [employer] and Iron binding capaci ty panelon 09-05-2023 Iron [Mass/Vol] 94 ug/dL Normal 41-186 [facility] Comment on above: Order Comment: Laury bradshaw Type: BLOOD SPECIMEN Ordering Facility: [facility] Address: [address] [place] [address] Performed By: #### 5 0190-8, 3016-3, 53627-3 #### [facility] CLIA [id number] [address] [place] [address] [place] #### 95073-8 #### [facility] CLIA [id number] [address] [place] [address] [place] [facility] CLIA [id number] [address] [place] [address] Iron binding capacity [Mass/Vol] 310 ug/dL Normal 232-386 [facility] Comment on above: Order Comment: Speci men Type: BLOOD SPECIMEN Ordering Facility: [facility] Address: [address] [place] [address] Performed By: #### 5 0190-8, 3016-3, 98823-0 #### [facility] CLIA [id number] [address] [place] [address] [place] #### 93182-8 #### [facility] CLIA [id number] [address] [place] [address] LAB CLIA [id number] [address] [place] [address] Iron/TIBC [Molar ratio] 30.3 % Normal 15.0-57.0 [facility] Comment on above: Order Comment: Speci men Type: BLOOD SPECIMEN Ordering Facility: [facility] Address: [address] [place] [address] Performed By: #### 5 0190-8, 3016-3, 01629-6 #### [facility] CLIA [id number] [address] [place] [address] [place] #### 69942-3 #### [facility] CLIA [id number] [address] [place] [address] OF [facility] CLIA [id number] [address] [place] [address] Lipid 1996 panelon 4 Cholesterol [Mass/Vol] 179 mg/dL Normal <200 [facility] Comment on above: Order Comment: Speci men Type: BLOOD SPECIMEN Ordering Facility: [facility] Address: [address] [place] [address] Result Comment: <200 mg/dL, Desirable 200-239 mg/dL, Borderline high >239 mg/dL, High Performed By: #### 2 276-4, 2132-9, 2284-8 #### [facility] CLIA [id number] [address] [place] [address] [place] Cholesterol in HDL [Mass/Vol] 45 mg/dL Normal >39 [facility] Comment on above: Order Comment: Laury augustine Type: BLOOD SPECIMEN Ordering Facility: [facility] Address: [address] [place] [address] Result Comment: 40-5 9 mg/dL, Acceptable >59 mg/dL, High: Negative risk factor for coronary heart disease <40 mg/dL, Low: Positive risk factor for coronary heart disease Performed By: #### 2 276-4, 2132-01, 2283-12 #### [facility] CLIA [id number] [address] [place] [address] [place] Cholesterol in LDL [Mass/Vol] 119 mg/dL High <100 [facility] Comment on above: Order Comment: Laury bradshaw Type: BLOOD SPECIMEN Ordering Facility: [facility] Address: [address] [place] [address] Result Comment: <100 mg/dL, Optimal 100-129 mg/dL, Near optimal/above optimal 130-159 mg/dL, Borderline high 160-189 mg/dL, High >189 mg/dL, Very high Secondary prevention optimal LDL Cholesterol levels are recommended to be < 70 mg/dL Performed By: #### 2 276-4, 9, 2283-12 #### [facility] CLIA [id number] [address] [place] [address] [place] Cholesterol in LDL/Cholesterol in HDL [Mass ratio] 2.64 {ratio} High <2.54 [facility] Comment on above: Order Comment: Abbimurray bradshaw Type: BLOOD SPECIMEN Ordering Facility: [facility] Address: [address] [place] [address] Result Comment: Belinda degroot: 1. National Cholesterol Education Program ATP III Guideline At-A-Glance Quick Desk Reference: National Heart, Lung, and Blood [place]. National Institutes of Health. 2001: NIH Publication No. 01-3305. 2. An International Atherosclerosis Society position paper: global recommendations for the management of dyslipidemia: executive summary, Atherosclerosis. 2014: 232(2):410-413. Performed By: #### 2 276-4, 2132-01, 2283-12 #### [facility] CLIA [id number] [address] [place] [address] [place] Cholesterol in VLDL [Mass/Vol] 15 mg/dL Normal <30 [facility] Comment on above: Order Comment: Laury men Type: BLOOD SPECIMEN Ordering Facility: [facility] Address: [address] [place] [address] Performed By: #### 2 276-4, 2132-01, 2283-12 #### [facility] CLIA [id number] [address] [place] [address] [place] Cholesterol non HDL [Mass/Vol] 134 mg/dL High <130 [facility] Comment on above: Order Comment: Laury bradshaw Type: BLOOD SPECIMEN Ordering Facility: [facility] Address: [address] [place] [address] Result Comment: <130 mg/dL, Optimal 130-159 mg/dL, Near optimal/above optimal 160-189 mg/dL, Borderline high 190-219 mg/dL, High >219 mg/dL, Very high Secondary prevention optimal non HDL Cholesterol levels are recommended to be <100 mg/dL Performed By: #### 2 276-4, 2132-01, 2283-12 #### [facility] CLIA [id number] [address] [place] [address] [place] Cholesterol.total/Cho lesterol in HDL [Mass ratio] 3.98 {ratio} Normal <5.10 [facility] Comment on above: Order Comment: Laury bradshaw Type: BLOOD SPECIMEN Ordering Facility: [facility] Address: [address] [place] [address] Performed By: #### 2 276-4, 2132-01, 2283-12 #### [facility] CLIA [id number] [address] [place] [address] [place] FASTING TIME 12 hrs Normal [facility] Comment on above: Order Comment: Speci men Type: BLOOD SPECIMEN Ordering Facility: [facility] Address: [address] [place] [address] Performed By: #### 2 276-4, 9, 2283-12 #### [facility] CLIA [id number] [address] [place] [address] [place] Triglyceride [Mass/Vol] 74 mg/dL Normal <150 [facility] Comment on above: Order Comment: Speci men Type: BLOOD SPECIMEN Ordering Facility: [facility] Address: [address] [place] [address] Result Comment: <150 mg/dL, Normal 150-199 mg/dL, Borderline high 200-499 mg/dL, High >499 mg/dL, Very high Performed By: #### 2 276-4, 2132-01, 2283-12 #### [facility] CLIA [id number] [address] [place] [address] [place] NT-proBNP SerPl-mCncon 09-04 Natriuretic peptide.B prohormone N-Terminal [Mass/Vol] 48 pg/mL Normal <125 [facility] Comment on above: Order Comment: Abbii augustine Type: BLOOD SPECIMEN Ordering Facility: [facility] Address: [address] [place] [address] Performed By: #### 2 276-4, 2132-01, 2283-12 #### [facility] CLIA [id number] [address] [place] [address] [place] TSH SerPl-aCncon 09-05-2023 TSH Qn 6.440 m[IU]/L High 0.270-4.200 [facility] Comment on above: Order Comment: Abbii men Type: BLOOD SPECIMEN Ordering Facility: [facility] Address: [address] [place] [address] Result Comment: If t he patient is , TSH reference range varies by gestational period: First Trimester (weeks 9-12): 0.180-2.990 mIU/L Second Trimester: 0.110-3.980 mIU/L Third Trimester: 0.480-4.710 mIU/L Seth Crews et al. A Practical Approach for the Verifications and Determination of Site- and Trimester-Specific Reference Intervals for Thyroid Function tests in . Thyroid, 2019:29:3:412-420. Zhang Ybarra, et al. 2017 Guidelines of the [place] [employer] for the Diagnosis and Management of Thyroid Disease during and the . Thyroid, 2017:27:3:315-389. Performed By: #### 2 276-4, 2132-9, 2284-8 #### [facility] CLIA [id number] [address] [place] [address] [place] VITAMIN B1 (THIAMINE), WHOLE BLOODon 09-05-2023 Thiamine (Bld) [Moles/Vol] 179.2 nmol/L Normal 84.3-213.3 [facility] Comment on above: Order Comment: Speci men Type: BLOOD SPECIMEN Ordering Facility: [facility] Address: [address] [place] [address] Result Comment: This assay measures the concentration of thiamine diphosphate (TDP), the primary active form of vitamin B1. Approximately 90 percent of vitamin B1 present in whole blood is TDP. Thiamine and thiamine monophosphate, which comprise the remaining 10 percent, are not measured. This test was developed and its performance characteristics determined by [facility]'s Kevin Que [facility] Pathology and Laboratory Medicine [place] ([facility]). It has not been cleared or approved by the FDA. -[facility] is regulated under CLIA as qualified to perform high-complexity testing. This test is used for clinical purposes. It should not be regarded as investigational or for research. Performed By: #### B 1WB #### [facility] CLIA [id number] [address] [place] [address] [place] Vit B12 SerPl-mCncon 024 Cobalamin (Vitamin B12) [Mass/Vol] 612 pg/mL Normal 232-1245 [facility] Comment on above: Order Comment: Speci men Type: BLOOD SPECIMEN Ordering Facility: [facility] Address: [address] [place] [address] Performed By: #### 2 276-4, 2132-9, 2284-8 #### [facility] CLIA [id number] [address] [place] [address] [place] [address] [place] Glucose - FINGER STICKon Glucose [Mass/Vol] 5.4 mg/dL [facility] Other PAP ACOG PANEL 2: 30 to 65on 06-10-2022 . . Normal [facility] Comment on above: Result Comment: Perf ormed at: WB Performed By: #### 4 [id number] #### [facility] [address] [place] [address] Dr. Sachin Coates Age Gdln ACOG Testing - Normal [facility] Comment on above: Performed By: #### 4 [id number] #### [facility] [address] [address] [address] Sachin Coates DIAGNOSIS: Comment Normal [facility] Comment on above: Result Comment: NEGA TIVE FOR INTRAEPITHELIAL LESION OR MALIGNANCY. CELLULAR CHANGES ASSOCIATED WITH INFLAMMATION ARE PRESENT. THIS SPECIMEN WAS RESCREENED PART OF OUR [employer] PROGRAM. Performed at: WB Performed By: #### 4 [id number] #### [facility] [address] [place] [address] Dr. Sachin Coates HPV Aptima Negative Normal Negative [facility] Comment on above: Result Comment: This nucleic acid amplification test detects fourteen high-risk HPV types (16,18,31,33,35,39,45,51,52,56,58,59,66,68) without differentiation. Performed at: =G Performed By: #### 4 [id number] #### [facility] [address] [address] [address] Sachin Coates HPV Genotype Reflex Comment Normal [facility] Comment on above: Result Comment: Crit eria not met, HPV Genotype not performed. Performed at: WB Performed By: #### 4 [id number] #### [facility] [address] [place] [address] Dr. Sachin Coates Methodology: Comment Normal [facility] Comment on above: Result Comment: This liquid based ThinPrep(R) pap test was screened with the use of an image guided system. Performed at: WB Performed By: #### 4 [id number] #### [facility] [address] [place] [address] Dr. Sachin Coates Note: Comment Normal [facility] [...] Performed at: WB Performed By: #### 4 [id number] #### [facility] [address] [place] [address] Dr. Sachin Coates Performed by: Comment Normal [facility] Comment on above: Result Comment: Peyotn Beverly, Complaint Coordinator (ASCP) Performed at: WB Performed By: #### 4 [id number] #### [facility] [address] [place] [address] Dr. Sachin Coates QC reviewed by: Comment Normal [facility] Comment on above: Result Comment: Cielo Cochran, Supervisory Complaint Coordinator (ASCP) Performed at: WB Performed By: #### 4 [id number] #### [facility] [address] [place] [address] Dr. Sachin Coates Specimen adequacy: Comment Normal [facility] Comment on above: Result Comment: Sati sfactory for evaluation. Endocervical and/or squamous metaplastic cells (endocervical component) are present. Performed at: WB Performed By: #### 4 [id number] #### [facility] [address] [place] [address] Dr. Sachin Coates COVID-19 SOFIAOrdered By: Dario To on 12-02-2021 SARS-CoV+SARS-CoV-2 (COVID-19) Ag IA.rapid Ql (Resp) Negative Negative [facility] Comment on above: This is a duplicate Zuleyma SARS Antigen (PAMELLA) result to be used for statistical tracking purpose only. No Panel InformationOrdered By: Ck To on 12-02-2021 SARS Antigen (LFIA) 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 Estradiol testing is performed using a different test methodology at [facility] than other [facility]. Direct result comparison should only be made within the same method. REF VALUES EARLY FOLLICULAR 22-115 MID FOLLICULAR 25-115 OVULATORY PEAK 32-517 MID LUTEAL 37-246 POSTMENOPAUSE <15- 25 MALE <15- 32 Performed By: #### [facility] #### [facility] [address] [place] [address] Estradiol, Serumon E2 [Mass/Vol] 186 pg/mL MG-OBGYN-Ri sm an 310 IVF Work Phone: Comment on above: Estradiol measuremen t is performed using the Shruthi divorce360 Access Sensitive Estradiol Immunoassay. Estradiol testing is performed using a different test methodology at [facility] than other [facility]. Direct result comparison should only be made within the same method.REF VALUESEARLY FOLLICULAR 22-115MID FOLLICULAR 25-115OVULATORY PEAK 32-517MID LUTEAL 37-246POSTMENOPAUSE <15- 25MALE <15- 32 LUTEINIZING HORMONEon 2020 LUTEINIZING HORMONE 9.5 IU/L Normal [facility] Comment on above: Result Comment: Lute inizing Hormone [LH] is performed using the Shruthi [place] Access Immunoassay. LH testing is performed using a different test methodology at [facility] than other [facility]. Direct result comparison should only be made within the same method. REF VALUES FOLLICULAR PHASE 1.5-10.0 MID-CYCLE 13.0-72.0 LUTEAL PHASE 0.5-13.0 MENOPAUSE 15.0-65.0 PREPUBERTY 0- 3.0 CHILDREN 0- 6.0 ADULT MALE 1.0- 9.0 Performed By: #### [facility] #### [facility] [address] [place] [address] Luteinizing Hormone, Serumon 07-08-2020 Lutropin Qn 9.5 {IU/L} OD-ORWGY-Tujh an 310 IVF Work Phone: Comment on above: Luteinizing Hormone [LH] is performed using the Shruthi [place] Access Immunoassay. LH testing is performed using a different test methodology at [facility] than other [facility]. Direct result comparison should only be made within the same method.REF VALUESFOLLICULAR PHASE 1.5-10.0MID-CYCLE 13.0-72.0LUTEAL PHASE 0.5-13.0MENOPAUSE 15.0-65.0PREPUBERTY 0- 3.0CHILDREN 0- 6.0ADULT MALE 1.0- 9.0 TYPE + SCREENon 07-06-2020 ABO TYPE A Normal [facility] Comment on above: Performed By: #### T +S #### [facility] [address] [place] [address] RH TYPE Positive Normal [facility] Comment on above: Performed By: #### T +S #### [facility] [address] [place] [address] ESTRADIOLon 07-05-2020 ESTRADIOL 58 pg/mL Normal [facility] Comment on above: Result Comment: Estr adiol measurement is performed using the Shruthi [place] Access Sensitive Estradiol Immunoassay. Estradiol testing is performed using a different test methodology at [facility] than other [facility]. Direct result comparison should only be made within the same method. REF VALUES EARLY FOLLICULAR 22-115 MID FOLLICULAR 25-115 OVULATORY PEAK 32-517 MID LUTEAL 37-246 POSTMENOPAUSE <15- 25 MALE <15- 32 Performed By: #### G CCHA #### [facility] [address] [place] [address] Estradiol, Serumon E2 [Mass/Vol] 58 pg/mL MG-OBGYN-Ri an 310 IVF Work Phone: Comment on above: Estradiol measuremen t is performed using the Shruthi J Carlos Access Sensitive Estradiol Immunoassay. Estradiol testing is performed using a different test methodology at [facility] than other [facility]. 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 LH testing is performed using a different test methodology at [facility] than other [facility]. Direct result comparison should only be made within the same method. REF VALUES FOLLICULAR PHASE 1.5-10.0 MID-CYCLE 13.0-72.0 LUTEAL PHASE 0.5-13.0 MENOPAUSE 15.0-65.0 PREPUBERTY 0- 3.0 CHILDREN 0- 6.0 ADULT MALE 1.0- 9.0 Performed By: #### L H #### [facility] [address] [place] [address] Luteinizing Hormone, Serumon 07-05-2020 Lutropin Qn 9.2 {IU/L} FP-UKUSO-Xnbr an 310 IVF Work Phone: Comment on above: Luteinizing Hormone [LH] is performed using the Shruthi divorce360 Access Immunoassay. LH testing is performed using a different test methodology at [facility] than other [facility]. Direct result comparison should only be made within the same method.REF VALUESFOLLICULAR PHASE 1.5-10.0MID-CYCLE 13.0-72.0LUTEAL PHASE 0.5-13.0MENOPAUSE 15.0-65.0PREPUBERTY 0- 3.0CHILDREN 0- 6.0ADULT MALE 1.0- 9.0 LUMBER SALES SUPERVISOR - Office Visiton LUMBER SALES SUPERVISOR - Office Visit Diagnoses/Problems Assessed Morbid obesity [...] MD [facility] [phone] [place] [phone] [place] 1 Amended By: Bayron Mccarty; Jun 19 [...] MD [facility] [phone] [place] [phone] [place] Appointment Duration:. 25 minutes; greater than half of the time was spent on counseling. 1 Amended By: Bayron Mccarty; Jun 19 2020 10:16 AM ESTChief Complaint follow up History of Present Ydlyasp4206/19/2020 9:30AM JALEESA ARRIETA , 30 year is contacted for an (audio-visual, or audio only) Telehealth visit. Today's visit was provided through telemedicine conferencing: Using TrackTik platform. Consent: The concept of telemedicine? has [...] is a telehealth appointment Results/Data HCG, Beta [id number] 11:58AMBayron Mccarty Test NameResultFlagReference HCG, Beta Quantitative<2 [...] [facility] than other [facility]. Direct result comparison should only be made within the same method. REF VALUES NON FEMALE <5 MALES <5 Progesterone, [id number] 11:58AMBayron Mccarty Test NameResultFlagReference Progesterone, Serum10.5 ng/mL REF VALUES MALE <0.3- 1.2 FOLLICULAR PHASE <0.3- 1.4 LUTEAL PHASE 3.3-25.6 MID-LUTEAL PHASE 4.4-28.0 POSTMENOPAUSAL <0.3- 0.7 FEMALES: 1ST TRIMESTER 11.2- 90.0 2ND TRIMESTER 25.6- 89.4 3RD TRIMESTER 48.4-422.5 . Patients receiving DHEA-S supplements may show false elevation of progesterone for results near 1.0 ng/mL. Contact laboratory at [phone] if alternative testing is needed. CMV IgG and IgM [id number] 11:58AMBayron Mccarty NameResultFlagReference CMV IgG AntibodyREACTIVEASee Below Reference Range: NONREACTIVE CMV IGM [id number] 11:58AMBayron Mccarty NameResultFlagReference CMV IGM AB<30.00 AU/mL [...] testing in two or more weeks. Xray Xbggzjyguipuxdkjfyw15Sbt 2020 12:00AMBayron Mccarty [Mar 28, 2020 9:43AM Bayron Mccarty] Reason: Unspecified for Xray Hysterosalpingogram Test NameResultFlagReference Xray Hysterosalpingogram Please click on the link to view the study images Anti Mullerian [id number] 12:03PMBayron Mccarty Test NameResultFlagReference Anti Mullerian Hormone6.36 ng/mL For assays employing antibodies, the possibility exists for interference by heterophile antibodies in the samples.1 1.Oswald Crews. Interferences in Immunoassays - still a threat. Clin. Chem. 2000; 46: 4944-6554. This test was developed and its performance characteristics determined by [email or web address]. It has not been cleared or approved by the Food and Drug Administration. Reference Range: Females 26 - 30y: 1.03 - 11.10 Median 4.20 AMH concentrations of >= 1.06 ng/mL is correlated with a better response to ovarian stimulation, produced more retrievable oocytes and higher odds of live according to Michaeler et al. Fertility and Sterility. 2010: 94:5417-1463. The current AMH test method correlates with [...] exclude an AMH-secreting ovarian tumor. Rubella IgG [id number] 12:03PMBayron Mccarty Test NameResultFlagReference Rubella IgG AntibodyPOSITIVE [...] TSH WITH REFLEX TO FREE T4 IF [id number] 12:03PMBayron Mccarty Test NameResultFlagReference Thyroid Stimulating Hormone, Serum2.17 mIU/LSee Below Reference Range: 0.44 - 3.98 TSH testing is performed using different testing methodology at [facility] than at other [facility]. Direct result comparisons should only be made within the same method. Varicella Zoster IgG [id number] 12:03PMBayron Mccarty Test NameResultFlagReference Varicella Zoster IgG [...] altered results in serological assays. Vitamin D 25-[id number] 12:03Bayron Silva Test NameResultFlagReference Vitamin D 25-Hydroxy, Level17 ng/mLA . DEFICIENCY: < 20 NG/ML INSUFFICIENCY: 20-29 NG/ML SUFFICIENCY: 30-100 NG/ML THIS ASSAY ACCURATELY QUANTIFIES THE SUM OF VITAMIN D3, 25-HYDROXY AND VIT D2,25-HYDROXY. { 17-Hydroxyprogesterone, [id number] 12:03Bayron Silva Test NameResultFlagReference 17-Hydroxyprogesterone, Serum33 ng/dL [...] Endocrinol Metab. 1991;73:674-686; J Clin Endocrinol Metab. 1989;69;1814-8677; J Clin Endocrinol Metab. 1994;78:226-270. Pediatr Res 1988;23:525-529. MedLinePlus (accessed 10/25/13). This test was developed and its analytical performance characteristics have been determined by [facility] [place], [place]. It has not been cleared or approved by the U.S. Food and Drug Administration. This assay has been validated pursuant to the CLIA regulations and is used for clinical purposes. DHEA Sulfate, [id number] 12:03PMBayron Mccarty Test NameResultFlagReference DHEA Sulfate, Jnsxy620 ug/dL65 - 395 MATURITY-BASED REFERENCE RANGES: PUBERTAL [...] laboratory for further information. Testosterone Free + [id number] 12:03PMBayron Mccarty Test NameResultFlagReference Testosterone, Total63 ng/dLH2-45 For additional information, please refer to http://education.myhomemove/faq/ TotalTestosteroneLCMSMSF AQ165 (This link is being provided for informational/ educational purposes only.) This test was developed and its analytical performance characteristics have been determined by [facility] [place] It has not been cleared or approved by the U.S. Food and Drug Administration. This assay has been validated pursuant to the CLIA regulations and is used for clinical purposes. Testosterone, Free Serum8.8 pg/mLH0.1-6.4 This test was developed and its analytical performance characteristics have been determined by [facility] [place], [place]. It has not been cleared or approved by the U.S. Food and Drug Administration. This assay has been validated pursuant to the CLIA regulations and is used for clinical purposes. Hemoglobin [id number] 12:03PMBayron Mccarty Test NameResultFlagReference Hemoglobin A1C, Level5.5 % Diagnosis of Diabetes-Adults Non-Diabetic: < or = 5.6% Increased risk for developing diabetes: 5.7-6.4% Diagnostic of diabetes: > or = 6.5% . Monitoring of Diabetes Age (y) Therapeutic Goal (%) Adults: >18 <7.0 Pediatrics: 13-18 <7.5 7-12 <8.0 0- 6 7.5-8.5 [place] [employer]. Diabetes Care 33(S1), May 2009. Estimated Average Aiunrsz300 MG/DL GC + Chlamydia By Amplified [id number] 12:03Bayron Silva Test NameResultFlagReference N.GONORRHEA,AMPLIFIEDNEG ATIVENegative SOURCE: Urine Chlamydia Trach, AmplifiedNEGATIVENegativ e Hepatitis B Surface [id number] 12:03PMBayron Mccarty Test NameResultFlagReference Hep.B Surface AgNONREACTIVESee Below Reference Range: NONREACTIVE Biotin interference may cause falsely decreased results. Patients taking a Biotin dose of up to 5 mg/day should refrain from taking Biotin for 24 hours before sample collection. Providers may contact their local laboratory for further information. Hepatitis C Antibody [id number] 12:03PMBayron Mccarty Test NameResultFlagReference Hepatitis C-AntibodyNONREACTIVESee Below Reference Range: NONREACTIVE Results from patients taking biotin supplements or receiving high-dose biotin therapy should be interpreted with caution due to possible interference with this test. Providers may contact their local laboratory for further information. HIV 1/2 ANTIGEN/ANTIBODY SCREEN WITH REFLEX TO [id number] 12:03PMFindleBayron mccarthy Test NameResultFlagReference HIV 1/2 AG/AB SCREENNONREACTIVESee Below Reference Range: NONREACTIVE HIV Ag/Ab screen is performed using the [employer] HIV Ag/Ab Combo assay which detects the presence of HIV p24 antigen as well as antibodies to HIV-1 (Group M and O) and HIV-2. SYPHILIS SCREENING WITH [id number] 12:03PMBerryBayron mccarthy Test NameResultFlagReference SYPHILIS TOTAL ANTIBODYNONREACTIVESee Below SOURCE: Reference Range: NONREACTIVE No significant level of Treponema pallidum antibody detected. Repeat testing in 2 to 4 weeks may be considered if early infection or incubating syphilis infection is suspected. Signatures Electronically signed by : Bayron Mccarty MD; Jun 19 2020 10:16AM EST (Author) Normal [facility] CMV IGM ABon 04-20-2020 CMV IGM AB [...] weeks. Performed By: #### C MVM2 #### [facility] [address] [place] [address] CMV IGG AND IGM ABon 020 CMV IGG AB REACTIVE Abnormal NONREACTIVE [facility] Comment on above: Performed By: #### C MV2 #### [facility] [address] [place] [address] PROGESTERONEon 04-16-2020 PROGESTERONE 10.5 ng/mL Normal [facility] [...] results near 1.0 ng/mL. Contact laboratory at [phone] if alternative testing is needed. Performed By: #### P BOBBY #### [facility] [address] [place] [address] HCG,BETA-QUANTITATIVEon HCG,BETA-QUANTITATIVE <2 Normal [facility] [...] HCG measurement is performed using the Shruthi [employer] Access Immunoassay which detects intact HCG and free beta HCG subunit. This test is not indicated for use as a tumor marker. HCG testing is performed using a different test methodology at [facility] than other [facility]. Direct result comparison should only be made within the same method. REF VALUES NON FEMALE <5 MALES <5 Performed By: #### H CGQU #### [address] [id number] LUMBER SALES SUPERVISOR - Office Visiton LUMBER SALES SUPERVISOR - Office Visit Chief Complaint An interactive [...] test results. Roby JEWELL. History of Present Zfuzkyl1704/14/2020 9:30AM JALEESAИРИНА ARRIETA , 30 year is contacted for an (audio-visual, or audio only) Telehealth visit. Today's visit was provided through telemedicine conferencing: Using TrackTik platform. Consent: The concept of telemedicine? has [...] 2020 1:15:24 PM Vitals Vital Signs Recorded: [id number] 09:08AM Height5 ft 6 in Slkasx072 lb BMI Acyytncrml01.81 BSA Calculated2.34 EMX23Glr7223 Gravida1 Para0 Pain Scale0 Physical Exam This is a telehealth appointment Results/Data Anti Mullerian [id number] 12:03PMBayron Mccarty Test NameResultFlagReference Anti Mullerian Hormone6.36 ng/mL For assays employing antibodies, the possibility exists for interference by heterophile antibodies in the samples.1 1.Oswald Crews. Interferences in Immunoassays - still a threat. Clin. Chem. 2000; 46: 5420-6419. This test was developed and its performance characteristics determined by [employer]. It has not been cleared or approved by the Food and Drug Administration. Reference Range: Females 26 - 30y: 1.03 - 11.10 Median 4.20 AMH concentrations of >= 1.06 ng/mL is correlated with a better response to ovarian stimulation, produced more retrievable oocytes and higher odds of live according to Michaeler et al. Fertility and Sterility. 2010: 94:3354-0346. The current AMH test method correlates with [...] exclude an AMH-secreting ovarian tumor. Anti Mullerian [id number] 12:03PMBayron Mccarty Test NameResultFlagReference Anti Mullerian Hormone6.36 ng/mL For assays employing antibodies, the possibility exists for interference by heterophile antibodies in the samples.1 1.Kricka L. Interferences in Immunoassays - still a threat. Clin. Chem. 2000; 46: 7160-0617. This test was developed and its performance characteristics determined by [email or web address]. It has not been cleared or approved by the Food and Drug Administration. Reference Range: Females 26 - 30y: 1.03 - 11.10 Median 4.20 AMH concentrations of >= 1.06 ng/mL is correlated with a better response to ovarian stimulation, produced more retrievable oocytes and higher odds of live according to Carey et al. Fertility and Sterility. 2010: 94:5937-3225. The current AMH test method correlates with [...] exclude an AMH-secreting ovarian tumor. Rubella IgG [id number] 12:03PMBayron Mccarty Test NameResultFlagReference Rubella IgG AntibodyPOSITIVE [...] TSH WITH REFLEX TO FREE T4 IF [id number] 12:03PMBayron Mccarty Test NameResultFlagReference Thyroid Stimulating Hormone, Serum2.17 mIU/LSee Below Reference Range: 0.44 - 3.98 TSH testing is performed using different testing methodology at [facility] than at other [facility]. Direct result comparisons should only be made within the same method. Varicella Zoster IgG Jeqyckia29Gkf4736 12:03PMBerryBayron mccarthy Test NameResultFlagReference Varicella Zoster IgG [...] altered results in serological assays. Vitamin D 25-Bhfhpfu91Zez7904 12:03PMBibiana Bayron Test NameResultFlagReference Vitamin D 25-Hydroxy, Level17 ng/mLA . DEFICIENCY: < 20 NG/ML INSUFFICIENCY: 20-29 NG/ML SUFFICIENCY: 30-100 NG/ML THIS ASSAY ACCURATELY QUANTIFIES THE SUM OF VITAMIN D3, 25-HYDROXY AND VIT D2,25-HYDROXY. { 17-Hydroxyprogesterone, Jypcd77Oig9198 12:03Shira Bayron Test NameResultFlagReference 17-Hydroxyprogesterone, Serum33 ng/dL [...] Endocrinol Metab. 1991;73:674-686; J Clin Endocrinol Metab. 1989;69;1936-5913; J Clin Endocrinol Metab. 1994;78:226-270. Pediatr Res 1988;23:525-529. MedLinePlus (accessed 10/25/13). This test was developed and its analytical performance characteristics have been determined by [employer] [place], [place]. It has not been cleared or approved by the U.S. Food and Drug Administration. This assay has been validated pursuant to the CLIA regulations and is used for clinical purposes. DHEA Sulfate, Mbhwa74Lzz9693 12:03PMBerryBayron mccarthy Test NameResultFlagReference DHEA Sulfate, Trkvi814 ug/dL65 - 395 MATURITY-BASED REFERENCE RANGES: PUBERTAL [...] laboratory for further information. Testosterone Free + [id number] 12:03PMBerryBayron mccarthy Test NameResultFlagReference Testosterone, Total63 ng/dLH2-45 For additional information, please refer to http://education.myhomemove/faq/ TotalTestosteroneLCMSMSF AQ165 (This link is being provided for informational/ educational purposes only.) This test was developed and its analytical performance characteristics have been determined by [facility] [employer] [place], [place]. It has not been cleared or approved by the U.S. Food and Drug Administration. This assay has been validated pursuant to the CLIA regulations and is used for clinical purposes. Testosterone, Free Serum8.8 pg/mLH0.1-6.4 This test was developed and its analytical performance characteristics have been determined by [facility] [place]. It has not been cleared or approved by the U.S. Food and Drug Administration. This assay has been validated pursuant to the CLIA regulations and is used for clinical purposes. Hemoglobin H5I11Wdx4065 12:03PMBibianaBayron Test NameResultFlagReference Hemoglobin A1C, Level5.5 % Diagnosis of Diabetes-Adults Non-Diabetic: < or = 5.6% Increased risk for developing diabetes: 5.7-6.4% Diagnostic of diabetes: > or = 6.5% . Monitoring of Diabetes Age (y) Therapeutic Goal (%) Adults: >18 <7.0 Pediatrics: 13-18 <7.5 7-12 <8.0 0- 6 7.5-8.5 [place] [employer]. Diabetes Care 33(S1), May 2009. Estimated Average Ooxaucz621 MG/DL GC + Chlamydia By Amplified Gtkgjlsib44Pxl0485 12:03PMBayron Mccarty Test NameResultFlagReference N.GONORRHEA,AMPLIFIEDNEG ATIVENegative SOURCE: Urine Chlamydia Trach, AmplifiedNEGATIVENegativ e Hepatitis B Surface Iwmpkpz60Qep9943 12:03PMBayron Mccarty Test NameResultFlagReference Hep.B Surface AgNONREACTIVESee Below Reference Range: NONREACTIVE Biotin interference may cause falsely decreased results. Patients taking a Biotin dose of up to 5 mg/day should refrain from taking Biotin for 24 hours before sample collection. Providers may contact their local laboratory for further information. Hepatitis C Antibody Ccug00Vsz0040 12:03PMFinBayron polanco Test NameResultReference Hepatitis C-AntibodyNONREACTIVESee Below Reference Range: NONREACTIVE Results from patients taking biotin supplements or receiving high-dose biotin therapy should be interpreted with caution due to possible interference with this test. Providers may contact their local laboratory for further information. HIV 1/2 ANTIGEN/ANTIBODY SCREEN WITH REFLEX TO BIADHZVMJYWJ92Sya2105 12:03PMBayron Mccarty NameResultRefereoneliae HIV 1/2 AG/AB SCREENNONREACTIVESee Below Reference Range: NONREACTIVE HIV Ag/Ab screen is performed using the Siemens [employer] HIV Ag/Ab Combo assay which detects the presence of HIV p24 antigen as well as antibodies to HIV-1 (Group M and O) and HIV-2. SYPHILIS SCREENING WITH SATHAU59Ooy5007 12:03PMBayron Mccarty NameResultFlagReference SYPHILIS TOTAL ANTIBODYNONREACTIVESee Below SOURCE: Reference Range: NONREACTIVE No significant level of Treponema pallidum antibody detected. Repeat testing in 2 to 4 weeks may be considered if early infection or incubating syphilis infection is suspected. Diagnoses/Problems Irregular menses (626.4) (N92.6) Morbid obesity (278.01) (E66.01) Orders HCG, Beta Quantitative; Status:Active; Requested for:55Zye5495; Perform:Lab Services - Lab To Draw (Blood Test); Due:13Jul2020;Ordered; For:Irregular menses; Ordered By:Bayron Mccarty; Progesterone, Serum; Status:Active; Requested for:63Oer7920; Perform:Lab Services - Lab To Draw (Blood [...] [facility] [phone] [place] [phone] [place] Appointment Duration:. 25 minutes; greater than half [...] MD [facility] [phone] [place] [phone] [place] 1 Amended By: Bayron Mccarty; Apr 14 2020 4:50 PM ESTSignatures Electronically signed by : Bayron Mccarty MD; Apr 14 2020 4:51PM EST (Author) Normal [facility] LUMBER SALES SUPERVISOR - Procedure Visiton 1 05-28-2019 LUMBER SALES SUPERVISOR - Procedure Visit Chief Complaint pt presents [...] 1 CAPSULE EVERY 12 HOURS DAILY; Therapy: 07Hjr3619 to (Evaluate:72Uvk5061) Requested for: 35Xhk1114; Last Rx:31Zqa4950 Ordered Rx By: Bayron Mccarty; Dispense: 5 Days ; #:10 Capsule; Refill: 0;For: Fertility testing; KEVIN = N; Verified Transmission to [place] [address]; Msg to Pharmacy: start medication the night [...] Signatures Electronically signed by : Kelle Vaz APRN-COACH CLEANER; Mar 28 2020 4:10PM EST (Author) Normal [facility] LUMBER SALES SUPERVISOR - Office Visiton LUMBER SALES SUPERVISOR - Office Visit Chief Complaint The patient [...] is considering single parent procreation. Her usual [facility] with whom she would plan to follow with for care in a future is Dr. Ng in [place]. Active Problems Female infertility (628.9) (N97.9) Fertility [...] 1 CAPSULE EVERY 12 HOURS DAILY; Therapy: 87Ryj8362 to (Evaluate:30Wph0336) Requested for: 23Jwv5973; Last Rx:30Tcg3793 Ordered Rx By: Bayron Mccarty; Dispense: 5 Days ; #:10 Capsule; Refill: 0; For: Fertility testing; KEVIN = N; Verified Transmission to [place] [address]; Msg to Pharmacy: start medication the night before her procedure; Last Updated By: [employer]; 01/24/2020 12:08:27 PM Vitamin D 25 MCG (1000 UT) Oral Tablet; Therapy: 13Mar2020 to Recorded Dispense: 0 Days ; #: Sufficient Tablet; Refill: 0; KEVIN = N; Record; Last Updated By: Breezy Jasso; 2020 1:15:24 PM Vitals Vital Signs Recorded: 13Mar2020 01:08PM Heart Rate96 Slbcztxx020 Eybyflxdu35 Height5 ft 6 in Etnpzu846 lb BMI Nqiywebigb46.91 BSA Calculated2.39 Tobacco Useb) No Fall Screeninga) No falls within the last year [id number] Gravida1 Para0 Pain Scale0 Diagnoses/Problems Morbid obesity [...] consultation of which greater than 50% was crfa-ew-glyp counseling. Weight loss prior to conception is [...] still a threat. Clin. Chem. 2000; 46: 8327-9666. This test was developed and its performance characteristics determined by [facility]. It has not been cleared or approved by the Food and Drug Administration. Reference Range: Females 26 - 30y: 1.03 - 11.10 Median 4.20 AMH concentrations of >= 1.06 ng/mL is correlated with a better response to ovarian stimulation, produced more retrievable oocytes and higher odds of live according to Gleicher et al. Fertility and Sterility. 2010: 94:4718-0169. The current AMH test method correlates with [...] ovarian tumor. Performed By: #### A #### [employer] [address] [place], [place] [id number] 17-HYDROXYPROGESTERONEon 17-HYDROXYPROGESTERON E 33 ng/dL Normal [facility] [...] Endocrinol Metab. 1991;73:674-686; J Clin Endocrinol Metab. 1989;69;6969-0656; J Clin Endocrinol Metab. 1994;78:226-270. Pediatr Res 1988;23:525-529. MedLinePlus (accessed 10/25/13). This test was developed and its analytical performance characteristics have been determined by [facility] It has not been cleared or approved by the U.S. Food and Drug Administration. This assay has been validated pursuant to the CLIA regulations and is used for clinical purposes. Performed By: #### 1 7OHP #### [facility] [address] [place], [place] TESTOST,FREE AND TOTALon TESTOSTERONE TOT.LC/MS/MS 63 ng/dL High 2-45 [facility] Comment on above: Result Comment: For additional information, please refer to http://education.Adea/faq/ OnwelKykgpvdbzhwgHVQMAAUXR779 (This link is being provided for informational/ educational purposes only.) This test was developed and its analytical performance characteristics have been determined by [place] It has not been cleared or approved by the U.S. Food and Drug Administration. This assay has been validated pursuant to the CLIA regulations and is used for clinical purposes. Performed By: #### G CCHA #### [facility] [address] [place] [address] TESTOSTERONE,FREE 8.8 pg/mL High 0.1-6.4 [facility] Comment on above: Result Comment: This test was developed and its analytical performance characteristics have been determined by [place]. It has not been cleared or approved by the U.S. Food and Drug Administration. This assay has been validated pursuant to the CLIA regulations and is used for clinical purposes. Performed By: #### [facility] #### [facility] [address] [place] [address] DHEA SULFATEon 01-25-2020 DHEA SULFATE 214 ug/dL [...] for further information. Performed By: #### [facility] #### [facility] [address] [place] [address] GC + CHLAMYDIA BY AMPLIFIED DETECTIONon 01-25-2020 CHLAMYDIA TRACH.,AMPLIFIED Negative Normal Negative [facility] Comment on above: Performed By: #### [facility] #### [facility] [address] [place] [address] N.GONORRHEA,AMPLIFIED Negative Normal Negative [facility] Comment on above: Performed By: #### [facility] #### [facility] [address] [place] [address] HEPATITIS B SURFACE AGon HEP.B SURFACE AG NONREACTIVE Normal NONREACTIVE [facility] Comment on above: Result Comment: Biot in interference may cause falsely decreased results. Patients taking a Biotin dose of up to 5 mg/day should refrain from taking Biotin for 24 hours before sample collection. Providers may contact their local laboratory for further information. Performed By: #### G CCHA #### [facility] [address] [place] [address] HEPATITIS C ABon 01-25-2020 HEPATITIS C AB NONREACTIVE Normal NONREACTIVE [facility] Comment on above: Result Comment: Resu lts from patients taking biotin supplements or receiving high-dose biotin therapy should be interpreted with caution due to possible interference with this test. Providers may contact their local laboratory for further information. Performed By: #### H [facility] #### [facility] [address] [place] [address] HIV ANTIGEN/ANTIBODY SCREENo n 01-25-2020 HIV AG/AB SCREEN NONREACTIVE Normal NONREACTIVE [facility] Comment on above: Result Comment: HIV Ag/Ab screen is performed using the Siemens [employer] HIV Ag/Ab Combo assay which detects the presence of HIV p24 antigen as well as antibodies to HIV-1 (Group M and O) and HIV-2. Performed By: #### G CCHA #### [facility] [address] [place] [address] RUBELLA IGG ABon 01-25-2020 RUBELLA IGG AB Positive Normal [facility] Comment on above: Result Comment: INTE [...] By: #### R UBIG #### [facility] [address] [place] [address] SYPHILIS SCREENING WITH REFL EXon 01-25-2020 SYPHILIS TOTAL AB NONREACTIVE Normal NONREACTIVE [facility] Comment on above: Result Comment: No s ignificant level of Treponema pallidum antibody detected. Repeat testing in 2 to 4 weeks may be considered if early infection or incubating syphilis infection is suspected. Performed By: #### S YPHR #### [facility] [address] [place] [address] TSH WITH REFLEX TO FREE T4 I F ABNORMALon 01-25-2020 TSH Qn 2.17 m[IU]/L Normal 0.44 - 3.98 [facility] Comment on above: Result Comment: TSH testing is performed using different testing methodology at [facility] than at other [facility]. Direct result comparisons should only be made within the same method. Performed By: #### [facility] #### [facility] [address] [place] [address] VARICELLA ZOSTER IGG ABon VARICELLA ZOSTER IGG [...] By: #### V ARZG #### [facility] [address] [place] [address] VITAMIN D, 25-HYDROXYon 01-10 VITAMIN D, 25-HYDROXY 17 ng/mL Abnormal [facility] Comment on above: Result Comment: . DEFICIENCY: < 20 NG/ML INSUFFICIENCY: 20-29 NG/ML SUFFICIENCY: 30-100 NG/ML THIS ASSAY ACCURATELY QUANTIFIES THE SUM OF VITAMIN D3, 25-HYDROXY AND VIT D2,25-HYDROXY. { Performed By: #### G CCHA #### [facility] [address] [place] [address] GC + CHLAMYDIA BY AMPLIFIED DETECTIONon 01-24-2020 Lab Specimen Source Urine Normal [facility] Comment on above: Performed By: #### [facility] #### [facility] [address] [place] [address] HEMOGLOBIN A1Con 01-24-2020 HbA1c (Bld) [Mass fraction] 5.5 % Normal [facility] Comment on above: Result Comment: Diag nosis of Diabetes-Adults Non-Diabetic: < or = 5.6% Increased risk for developing diabetes: 5.7-6.4% Diagnostic of diabetes: > or = 6.5% . Monitoring of Diabetes Age (y) Therapeutic Goal (%) Adults: >18 <7.0 Pediatrics: 13-18 <7.5 7-12 <8.0 0- 6 7.5-8.5 [place] [employer]. Diabetes Care 33(S1), May 2009. Performed By: #### H BA1E #### [facility] [address] [place] [address] HbA1c (Bld) [Mass fraction] 111 MG/DL Normal [facility] Comment on above: Performed By: #### H BA1E #### [facility] [address] [place] [address] LUMBER SALES SUPERVISOR - Office Visiton 01-10 LUMBER SALES SUPERVISOR - Office Visit Chief Complaint 29 year [...] is currently incarcerated, and will be in senior care until 2026. She is interested in pursuing fertility testing today, and pending these results would potentially be interested in single-parent procreation with donor sperm. She is not currently sexually active. She has a history of ectopic in 2011, which was treated with laparoscopic left salpingectomy in [facility]. 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: STDs: Yes, remote history of gonorrhea [...] 01/24/2020 12:05:52 PM Vitals Vital Signs Recorded: 87Yzk6795 11:13AM Klrnkyrbivk15.7 F Heart Zhph286 Rdwnbelx825 Feovcrwvz20 Height5 ft 6 in Snferg883 lb BMI Vmvkdytbkl15.13 BSA Calculated2.35 Tobacco Useb) No Fall Screeninga) No falls within the last year GVF58Ksp5657 Gravida1 Para0 Pain Scale0 Diagnoses/Problems Female infertility (628.9) (N97.9) Fertility testing (V26.21) (Z31.41) Morbid obesity (278.01) (E66.01) Irregular menses (626.4) (N92.6) Screening for STD (sexually transmitted disease) (V74.5) (Z11.3) *Orders Anti Mullerian Hormone; Status:Active; Requested for:40Fsu3212; Perform:Lab Services - Lab To Draw (Non-Blood Test); Due:50Ojb0112;Ordered; For:Female infertility, Fertility testing, Irregular menses, Morbid obesity; Ordered By:Bayron Mccarty; Start: Doxycycline Monohydrate 100 MG Oral Capsule; TAKE 1 CAPSULE EVERY 12 HOURS DAILY Rx By: Bayron Mccarty; Dispense: 5 Days ; #:10 Capsule; Refill: 0; For: Fertility testing; KEVIN = N; Verified Transmission to [place] [address]; Msg to Pharmacy: start medication the night before her procedure; Last Updated By: Yeimi LizarragaAnvil Semiconductorswillis; 01/24/2020 12:08:27 PM Maternal Medicine Referral Evaluation and Treatment Evaluate AND Treat Status: Hold For - Scheduling Requested for: 36Fpg4242 Ordered; For: Morbid obesity; Ordered By: Bayron Mccarty Performed: Due: 15Pgj1534 17-Hydroxyprogesterone, Serum; Status:Active; Requested for:52Pgx3311; Perform:Lab Services - Lab To Draw (Blood Test); Due:63Ntf5821;Ordered; For:Screening for STD (sexually transmitted disease); Ordered By:Bayron Mccarty; DHEA Sulfate, Serum; Status:Active; Requested for:15Fnp2507; Perform:Lab Services - Lab To Draw (Blood Test); Due:20Lnn8120;Ordered; For:Screening for STD (sexually transmitted disease); Ordered By:Bayron Mccarty; Hemoglobin A1C; Status:Active; Requested for:66Qys6803; Perform:Lab Services - Lab To Draw (Blood Test); Due:05Sfl3196;Ordered; For:Screening for STD (sexually transmitted disease); Ordered By:Bayron Mccarty; Rubella IgG Antibody; Status:Active; Requested for:25Etn1193; Perform:Lab Services - Lab To Draw (Blood Test); Due:09Msc8452;Ordered; For:Screening for STD (sexually transmitted disease); Ordered By:Bayron Mccarty; Testosterone Free + Total; Status:Active; Requested for:24Jan2020; Perform:Lab Services - Lab To Draw (Blood Test); Due:15Zpb4669;Ordered; For:Screening for STD (sexually transmitted disease); Ordered By:Bayron Mccarty; TSH WITH REFLEX TO FREE T4 IF ABNORMAL; Status:Active; Requested for:24Jan2020; Perform:Lab Services - Lab To Draw (Blood Test); Due:75Kgb1863;Ordered; For:Screening for STD (sexually transmitted disease); Ordered By:Bayron Mccarty; Ultrasound Pelvis Transvaginal; Status:Hold For - Scheduling; Requested for:24Jan2020; Perform:[facility]; Order Comments:will call with menses to schedule; Due:82Ubh2672;Ordered; For:Screening for STD (sexually transmitted disease); Ordered By:Bayron Mccarty; Radiologist to Determine Optimal Study : Y What are the patient's signs and symptoms? : fert testing Varicella Zoster IgG Antibody; Status:Active; Requested for:24Jan2020; Perform:Lab Services - Lab To Draw (Blood Test); Due:05Oro5964;Ordered; For:Screening for STD (sexually transmitted disease); Ordered By:Bayron Mccarty; Vitamin D 25-Hydroxy; Status:Active; Requested for:24Jan2020; Perform:Lab Services - Lab To Draw (Blood Test); Due:23Apr2020;Ordered; For:Screening for STD (sexually transmitted disease); Ordered By:Bayron Mccarty; Xray Hysterosalpingogram; Status:Hold For - Scheduling; Requested for:24Jan2020; Perform:[facility]; Order Comments:will call with menses to schedule. schedule between CD5-12. start doxycycline night prior to procedure; Due:40Koa9216;Ordered; For:Screening for STD (sexually transmitted disease); Ordered [...] Blood type [ ] Genetic Screen with [employer] - will consider [ ] Take vitamins [x] Return to see SAFETY ENGINEER after workup complete to discuss management [...] REFL EXon 01-24-2020 Lab Specimen Source Normal [facility] Comment on above: Performed By: #### S YPHR #### [facility] [address] [place] [address] Performed By: #### V ARZG #### [facility] [address] [place] [address] Performed By: #### R UBIG #### [facility] [address] [place] [address] Vital Signs Date Time Vital Sign Value Performing Clinician Facility 05-17-2024 15:36-0500 Body mass index (BMI) [Ratio] 49.41 kg/m2 [facility] Work Phone: [facility] 05-17-2024 15:36-0500 Body weight 138.85 kg [facility] Work Phone: [facility] 05-17-2024 15:36-0500 Diastolic blood pressure 80 mm[Hg] [employer] Work Phone: [facility] 05-17-2024 15:36-0500 Systolic blood pressure 118 mm[Hg] [employer] Work Phone: [facility] 05-03-2024 15:11-0500 Body mass index (BMI) [Ratio] 49.09 kg/m2 Mena CARRILLO Work Phone: [facility] 05-03-2024 15:11-0500 Body weight 137.95 kg Mena Marissa PA Work Phone: [facility] 05-03-2024 15:11-0500 Diastolic blood pressure 70 mm[Hg] Mena Marissa PA Work Phone: [facility] 05-03-2024 15:11-0500 Systolic blood pressure 120 mm[Hg] Mena Cumming PA Work Phone: [facility] 04-22-2024 09:51-0500 Body mass index (BMI) [Ratio] 49.45 kg/m2 Tacho Shon DO Work Phone: [facility] 04-22-2024 09:51-0500 Body weight 138.98 kg Tacho Shon DO Work Phone: [facility] 04-22-2024 09:51-0500 Diastolic blood pressure 80 mm[Hg] Tacho Shon DO Work Phone: [facility] 04-22-2024 09:51-0500 Systolic blood pressure 130 mm[Hg] Tacho Shon DO Work Phone: [facility] 04-06-2024 14:10-0500 Body mass index (BMI) [Ratio] 48.58 kg/m2 Mena Cumming PA Work Phone: [facility] 04-06-2024 14:10-0500 Body weight 136.53 kg Mena Marissa PA Work Phone: [facility] 04-06-2024 14:10-0500 Diastolic blood pressure 80 mm[Hg] Mena Cumming PA Work Phone: [facility] 04-06-2024 14:10-0500 Systolic blood pressure 128 mm[Hg] Mena Marissa PA Work Phone: [facility] 03-22-2024 14:14-0500 Body mass index (BMI) [Ratio] 48.92 kg/m2 Tacho Shon DO Work Phone: [facility] 03-22-2024 14:14-0500 Body weight 137.49 kg Tacho Shon DO Work Phone: [facility] 03-22-2024 14:14-0500 Diastolic blood pressure 84 mm[Hg] Tacho Shon DO Work Phone: [facility] 03-22-2024 14:14-0500 Systolic blood pressure 126 mm[Hg] Tacho Shon DO Work Phone: [facility] 03-05-2024 23:11-0400 Diastolic blood pressure 78 mm[Hg] [facility] Work Phone: [facility] 03-05-2024 23:11-0400 Heart rate 90 /min [facility] Work Phone: [facility] 03-05-2024 23:11-0400 Respiratory rate 18 /min [facility] Work Phone: [facility] 03-05-2024 23:11-0400 SaO2% (BldA) [Mass fraction] 96 % [facility] Work Phone: [facility] 03-05-2024 23:11-0400 Systolic blood pressure 136 mm[Hg] [facility] Work Phone: [facility] 03-05-2024 19:59-0400 Body temperature 98.1 [degF] [facility] Work Phone: [facility] 03-05-2024 19:58-0400 Body height 167.64 cm [facility] Work Phone: [facility] 03-05-2024 19:58-0400 Body weight 136.55 kg [facility] Work Phone: [facility] 02-26-2024 19:50-0400 Body height 167.64 cm [facility] Work Phone: [facility] 02-26-2024 19:50-0400 Body temperature 97.8 [degF] [facility] Work Phone: [facility] 02-26-2024 19:50-0400 Body weight 136.98 kg [facility] Work Phone: [facility] 02-26-2024 19:50-0400 Diastolic blood pressure 91 mm[Hg] Services [employer] Work Phone: [facility] 02-26-2024 19:50-0400 Heart rate 103 /min Services [facility] Work Phone: [facility] 02-26-2024 19:50-0400 Respiratory rate 16 /min Services [facility] Work Phone: [facility] 02-26-2024 19:50-0400 SaO2% (BldA) [Mass fraction] 96 % Services [facility] Work Phone: [facility] 02-26-2024 19:50-0400 Systolic blood pressure 144 mm[Hg] Services [facility] Work Phone: [facility] 02-23-2024 14:01-0400 Body mass index (BMI) [Ratio] 48.76 kg/m2 Mena Ann PA Work Phone: [facility] 02-23-2024 14:01-0400 Body weight 137.04 kg Mena Ann PA Work Phone: [facility] 02-23-2024 14:01-0400 Diastolic blood pressure 82 mm[Hg] Mena Ann PA Work Phone: [facility] 02-23-2024 14:01-0400 Systolic blood pressure 128 mm[Hg] Mena Ann PA Work Phone: [facility] 01-20-2024 13:58-0400 Body mass index (BMI) [Ratio] 48.1 kg/m2 Tacho Shon DO Work Phone: [facility] 01-20-2024 13:58-0400 Body weight 135.17 kg Tacho Shon DO Work Phone: [facility] 01-20-2024 13:58-0400 Diastolic blood pressure 74 mm[Hg] Tacho Shon DO Work Phone: [facility] 01-20-2024 13:58-0400 Systolic blood pressure 122 mm[Hg] Tacho Menendez DO Work Phone: [facility] 10-06-2023 17:42-0400 Body height 167.64 cm Services [facility] Work Phone: [facility] 10-06-2023 17:42-0400 Body temperature 98.3 [degF] Services [facility] Work Phone: [facility] 10-06-2023 17:42-0400 Body weight 134 kg Services [facility] Work Phone: [facility] 10-06-2023 17:42-0400 Diastolic blood pressure 94 mm[Hg] Services [facility] Work Phone: [facility] 10-06-2023 17:42-0400 Heart rate 98 /min Services [facility] Work Phone: [facility] 10-06-2023 17:42-0400 Respiratory rate 18 /min [facility] Work Phone: [facility] 10-06-2023 17:42-0400 SaO2% (BldA) [Mass fraction] 100 % Services [facility] Work Phone: [facility] 10-06-2023 17:42-0400 Systolic blood pressure 142 mm[Hg] Services [facility] Work Phone: [facility] 09-17-2023 14:22-0400 Body height 167.[address] [facility] 09-17-2023 14:22-0400 Body mass index (BMI) [Ratio] 47.61 kg/m2 Anna Ortiz RD [facility] 09-17-2023 14:22-0400 Body weight 133.[address] [facility] 08-20-2023 13:05-040 Body height 167.6 cm Tonya Senior APRN.COACH CLEANER Work Phone: [facility] 08-20-2023 13:05-0400 Body weight 133.81 kg Tonya Senior APRN.COACH CLEANER Work Phone: [facility] 08-07-2023 15:23-0400 Body height 168.91 cm Services [facility] Work Phone: [facility] 08-07-2023 15:23-0400 Body mass index (BMI) [Ratio] 46.9 kg/m2 Services [facility] Work Phone: [facility] 08-07-2023 15:23-0400 Body weight 133.89 kg Services [employer] Work Phone: [facility] 08-07-2023 15:23-0400 Diastolic blood pressure 83 mm[Hg] Services [facility] Work Phone: [facility] 08-07-2023 15:23-0400 Heart rate 101 /min Services [facility] Work Phone: [facility] 08-07-2023 15:23-0400 Respiratory rate 18 /min Services [facility] Work Phone: [facility] 08-07-2023 15:23-0400 SaO2% (BldA) [Mass fraction] 98 % Services [facility] Work Phone: [facility] 08-07-2023 15:23-0400 Systolic blood pressure 120 mm[Hg] Services [facility] Work Phone: [facility] 06-13-2023 11:00-0500 Body height 168.28 cm [facility] [employer] Other [facility] 06-13-2023 11:00-0500 Body mass index (BMI) [Ratio] 48.53 kg/m2 [employer] Other [employer] Other 06-13-2023 11:00-0500 Body weight 137.44 kg [employer] Other [employer] Other 06-13-2023 11:00-0500 Body weight 137.43 kg Services [employer] Work Phone: [facility] 06-13-2023 11:00-0500 Diastolic blood pressure 82 mm[Hg] [facility] [employer] Other [facility] 06-13-2023 11:00-0500 Respiratory rate 18 /min [employer] Other [employer] Other 06-13-2023 11:00-0500 SaO2% (BldA) [Mass fraction] 97 % [employer] Other [employer] Other 06-13-2023 11:00-0500 Systolic blood pressure 120 mm[Hg] [employer] Other [facility] 01-08-2023 10:45-0400 Body height 168.28 cm [employer] Other [employer] Other 01-08-2023 10:45-0400 Body mass index (BMI) [Ratio] 52.89 kg/m2 [employer] Other [employer] Other 01-08-2023 10:45-0400 Body weight 149.78 kg [employer] Other [employer] Other 01-08-2023 10:45-0400 Diastolic blood pressure 81 mm[Hg] [employer] Other [employer] Other 01-08-2023 10:45-0400 Respiratory rate 18 /min [employer] Other [employer] Other 01-08-2023 10:45-0400 SaO2% (BldA) [Mass fraction] 97 % [employer] Other [employer] Other 01-08-2023 10:45-0400 Systolic blood pressure 122 mm[Hg] [employer] Other [facility] [employer] Other 06-18-2022 16:57-0500 Body height 167.64 cm Services [facility] Work Phone: [facility] 06-18-2022 16:57-0500 Body weight 157 kg [facility] Work Phone: [facility] 06-18-2022 16:56-0500 Body temperature 98.3 [degF] Services [facility] Work Phone: [facility] 06-18-2022 16:56-0500 Diastolic blood pressure 67 mm[Hg] Services [facility] Work Phone: [facility] 06-18-2022 16:56-0500 Heart rate 95 /min [facility] Work Phone: [facility] 06-18-2022 16:56-0500 Respiratory rate 20 /min [facility] Work Phone: [facility] 06-18-2022 16:56-0500 SaO2% (BldA) [Mass fraction] 97 % Services [facility] Work Phone: [facility] 06-18-2022 16:56-0500 Systolic blood pressure 158 mm[Hg] Services [facility] Work Phone: [facility] 12-02-2021 20:26-0400 Body height 167.64 cm [facility] Work Phone: [facility] 12-02-2021 20:26-0400 Body temperature 98.2 [degF] [facility] Work Phone: [facility] 12-02-2021 20:26-0400 Body weight 144.24 kg [facility] Work Phone: [facility] 12-02-2021 20:26-0400 Diastolic blood pressure 89 mm[Hg] Services [facility] Work Phone: [facility] 12-02-2021 20:26-0400 Heart rate 104 /min [facility] Work Phone: [facility] 12-02-2021 20:26-0400 Respiratory rate 20 /min Services [facility] Work Phone: [facility] 12-02-2021 20:26-0400 SaO2% (BldA) [Mass fraction] 96 % Services [facility] Work Phone: [facility] 12-02-2021 20:26-0400 Systolic blood pressure 156 mm[Hg] Services [facility] Work Phone: [facility] 06-19-2020 11:10-0500 BMI (Body Mass Index) 46.65 kg/m2 Bayron Bibiana DD-GNRYX-Uhkbup 310 [facility] Work Phone: 06-19-2020 11:10-0500 Body weight 131.09 kg Bayron Bibiana QZ-HEFFB-Bqdgva 310 [facility] Work Phone: 06-19-2020 11:10-0500 BSA (Body Surface Area) 2.34 m2 Bayron Bibiana WE-KRMJU-Kwymkm 310 [facility] Work Phone: 06-19-2020 11:10-0500 Height 167.64 cm Bayron Bibiana PO-VYBCD-Hdwape 310 [facility] Work Phone: 06-19-2020 11:10-0500 1 1 Bayron Bibiana HF-WNMIK-Xfjwps 310 IV[facility] Work Phone: Comment on above: 06-19-2020 11:10-0500 0 1 Bayron Bibiana KU-FYZQH-Wizsjd 310 [facility] Work Phone: Comment on above: Para Pain Scale Encounters Encounter Date Encounter Type Care Provider Facility Start: 05-17-2024 End: 05-17-2024 Departed Referred Services [facility] Work Phone: [facility] Start: 05-17-2024 End: 05-17-2024 Office outpatient visit 15 minutes Tacho Menendez DO Work Phone: [facility] Comment on above: 37 weeks gestation o f ; Third trimester Start: 05-17-2024 End: 05-17-2024 ambulatory Services [facility] Work Phone: [facility] Work Phone: Start: 05-17-2024 End: 05-17-2024 Bamboo [...] Start: 04-27-2024 End: 04-27-2024 [facility] Start: 04-22-2024 End: 04-22-2024 Bamboo flowsheet [...] 03-30-2024 End: 03-30-2024 ambulatory TACHO R SHON [facility] Start: 03-22-2024 End: 03-22-2024 Bamboo flowsheet [...] End: 03-05-2024 Emergency department patient visit Services [facility] Work Phone: [facility] Work Phone: Start: 03-01-2024 End: 03-01-2024 Orders Only Veda Hayes RN Maternal- Medic ine at [facility] Comment on above: Encounter for follow -up ultrasound of anatomy (Primary Dx); History of pre-eclampsia in prior , currently ; History of delivery, currently ; Obesity affecting in second trimester, unspecified obesity type Start: 02-26-2024 End: 02-26-2024 Emergency department patient visit Services [facility] Work Phone: [facility] Work Phone: Start: 02-23-2024 End: 02-23-2024 [...] Not Available Start: 02-17-2024 End: 02-17-2024 ambulatory [facility] Start: 01-26-2024 End: 01-26-2024 Clinisync Result Encounter [...] 01-19-2024 End: 01-19-2024 ambulatory TACHO R SHON [facility] Start: 12-23-2023 End: 12-23-2023 ambulatory MENA ANN Not Available Start: 11-25-2023 End: 11-25-2023 ambulatory TACHO SHON Not Available Start: 10-30-2023 End: 10-30-2023 ambulatory TACHO SHON Not Available Start: 10-09-2023 End: 10-09-2023 ambulatory LATONIA OSUNAARDO Facility:[facility] Start: 10-06-2023 End: 10-06-2023 Emergency department patient visit Services [facility] Work Phone: [facility] Work Phone: Start: 09-17-2023 End: 09-17-2023 ambulatory ANNA ORTIZ Facility:[facility] Start: 09-17-2023 End: 09-17-2023 Nutrition therapy Anna Ortiz RD Nutrition Therapy Comment on above: Obesity, Class III, BMI 40-49.9 (morbid obesity) (HCC) (Primary Dx); Dietary counseling Start: 09-17-2023 End: 09-17-2023 Telemedicine consultation with patient Anna Ortiz RD Nutrition Therapy Start: 09-15-2023 Admission to same day surgery center Tonya Senior APRN.COACH CLEANER Work Phone: General Surgery Comment on above: Results Start: 09-15-2023 E-mail encounter fro m caregiver Tonya Senior APRN.COACH CLEANER Work Phone: General Surgery Start: 09-11-2023 Telephone encounter Tonya Senior APRN.COACH CLEANER Work Phone: General Surgery Comment on above: Results Start: 09-08-2023 End: 09-08-2023 ambulatory TONYA SENIOR Facility:[facility] Start: 09-05-2023 End: 09-05-2023 ambulatory TONYA SENIOR Facility:[facility] Start: 09-01-2023 End: 09-02-2023 ambulatory LATONIA GREENE Facility:[facility] Start: 09-01-2023 End: 09-01-2023 Admission to same day surgery center Latonia Greene PhD Work Phone: General Surgery BMI PSYL Comment on above: NO SHOW (Primary Dx) Start: 09-01-2023 End: 09-01-2023 Telemedicine consultation with patient Latonia Greene PhD Work Phone: General Surgery BMI PSYL Start: 08-20-2023 Admission to same da y surgery center Tonya Senior APRN.COACH CLEANER Work Phone: General Surgery Comment on above: Welcome to Bariatric Surgery Start: 08-20-2023 E-mail encounter fro m caregiver Tonya Senior APRN.COACH CLEANER Work Phone: [place] [id number] Start: 08-20-2023 End: 08-20-2023 ambulatory Tonya Senior APRN.COACH CLEANER Work Phone: General Surgery Comment on above: Body mass index (BMI ) of 50-59.9 in adult (HCC) (Primary Dx); Angel's thyroiditis; High blood cholesterol Start: 08-20-2023 End: 08-20-2023 Telemedicine consultation with patient Tonya Senior APRN.COACH CLEANER Work Phone: [facility] Start: 08-07-2023 End: 08-07-2023 ambulatory Services [facility] Work Phone: [facility] Work Phone: Start: 08-07-2023 End: 08-07-2023 Patient encounter procedure Services [facility] Work Phone: [facility] Work Phone: Start: 06-13-2023 Follow-up encounter Nicholas leon [facility] Start: 06-13-2023 Registered Recurring Services [facility] Work Phone: [facility] Work Phone: Start: 06-13-2023 End: 06-13-2023 ambulatory Services [facility] [employer] Other Start: 06-13-2023 End: 06-13-2023 Patient encounter procedure Services [facility] Work Phone: [facility]- Start: 01-08-2023 End: 01-08-2023 ambulatory Nicholas Michaels Other [facility] [employer] Other Start: 01-08-2023 Nutrition therapy Nicholas Brando Malik [facility] Start: 06-18-2022 End: 06-18-2022 Emergency department patient visit Services [facility] Work Phone: [facility] Work Phone: Start: 06-03-2022 End: 06-03-[address] TACHO MENENDEZ Facility: Start: 12-02-2021 End: 12-02-2021 Emergency department patient visit Services [facility] Work Phone: [facility] Start: 07-08-2020 Patient encounter procedure Bayron Bibiana PAEZYN-XPAOV-Cqoxbf 310 IV[facility] Work Phone: Start: 07-05-2020 Patient encounter procedure Bayron Bibiana SC-PJRZU-Ohmtdk 310 IV[facility] Work Phone: Start: 06-19-2020 Patient encounter procedure Bayron Bibiana PAEZOY-ZKKBH-Rwtnsb 310 IV[facility] Work Phone: Start: 04-14-2020 Patient encounter procedure Bayron Bibiana PAEZQN-TOKNY-Dlbrcl 310 IVF Work Phone: Start: 03-28-2020 Patient encounter procedure Bayron Anaya [facility] Work Phone: Start: 2020 Patient encounter procedure Bayron Anaya [facility] Work Phone: Start: 01-24-2020 Patient encounter procedure Bayron Anaya [facility] Work Phone: Start: 08-01-2017 End: 08-02-2017 Ambulatory Agustin Patton Facility:[id number] Start: 07-14-2017 End: 07-15-2017 Ambulatory Agustin Carrasquillo Facility:CD:[id number] Procedures Date Procedure Procedure Detail Performing [...] Work Phone: Start: 03-05-2024 Plain chest X-ray [facility] Work Phone: Start: 03-05-2024 Respiratory Panel (PCR) Services [facility] Phone: Start: 03-05-2024 Respiratory Panel (PCR) Services [facility] Work Phone: Start: 03-05-2024 Streptococcus pyogen es antigen assay Services [facility] Phone: Start: 02-26-2024 Streptococcus pyogen es antigen assay Services [facility] Phone: Start: 02-23-2024 Urnls dip stick/tabl et rgnt non-auto w/o micrscp Mena Ann PA Work Phone: Start: 01-26-2024 ALL THYROID STIM HORMONE [employer] Work Phone: Start: 01-20-2024 Urnls dip stick/tabl et rgnt non-auto w/o micrscp [employer] Work Phone: Start: 12-23-2023 Microscopic observat ion [Identifier] in Cervix by Cyto stain [employer] Work Phone: Start: 07-06-2020 Antibody screen Comment on above: Performed By: #### T +S #### [facility] [address] [place] [address] Start: 07-05-2020 IO Ultrasound, limit ed pelvic, follicle monitoring Bayron Mccarty Start: 06-26-2020 IO Ultrasound, limit ed pelvic, follicle monitoring Bayron Mccarty Start: 05-10-2020 Assay of progesterone J oslissette Mccarty Adenoid excision Bayron wallace Cholecystectomy Bayron Chen ey SARS Antigen (LFIA) Services [facility] Phone: Plan of Treatment Date Care Activity Detail Author Start: 12-22-2028 Screening for malign ant neoplasm of cervix [facility] Start: 12-22-2026 Screening for malign [...] AM EST Routine [facility] [address] [id number] Tacho Menendez, DO [address] [place] [address] [facility] Start: 05-26-2024 End: 05-26-2024 Patient encounter procedure 05/26/2024 2:10 PM EST Routine [facility] [address] [facility] [place] [phone] Tacho Menendez, DO [address] [place] [address] [facility] Start: 05-17-2024 Following clinical pathway protocol [facility] Start: 05-17-2024 End: 05-17-2024 Patient encounter procedure [facility] Comment on above: Arrived Start: 05-17-2024 End: 05-17-2025 CULTURE, GROUP B STREP WITH SUSCEPTIBLITY CULTURE, GROUP B STREP WITH SUSCEPTIBLITY Lab Routine Third trimester Expected: 05/17/2024, Expires: 05/17/2025 [facility] Work Phone: Comment on above: Expected: 05/17/2024 , Expires: 05/17/2025 Start: 05-17-2024 Group B Streptococcu s Culture Group B Streptococcus Culture [facility] Start: 05-03-2024 End: 05-03-2024 Patient encounter procedure 05/03/2024 2:50 PM EST Routine [facility] [address] [place] [id number] Mena Ann PA [address] [place] [address] [facility] Start: 04-22-2024 End: 04-22-2025 [...] EST Routine [facility] [address] [place] [phone] Mena Ann PA [address] [place] [address] [facility] Start: 03-30-2024 End: 03-30-2024 Patient encounter procedure 03/30/2024 2:45 PM EST Appointment [facility] - Ultrasound [address] [place] [id number] [facility] Start: 03-22-2024 End: 03-22-2024 Patient encounter procedure 03/22/2024 1:50 PM EST Routine [facility] [address] [facility] [place] [phone] Tacho Menendez, DO [address] [place] [address] [facility] Start: 03-22-2024 End: 03-22-2024 Professional / ancillary services management 03/22/2024 1:00 PM EST Ancillary Procedure [facility] [address] [place] [phone] [facility] Start: 03-16-2024 End: 03-16-2024 Patient encounter procedure 03/16/2024 1:30 PM EST Routine [facility] [address] [place] [phone] Tacho Menendez, DO [address] [place] [address] [facility] Start: 02-23-2024 End: 02-22-2025 CBC panel - Blood by Automated count CBC Lab Routine Diabetes mellitus screening Expected: 02/23/2024 (Approximate), Expires: 02/22/2025 [facility] Work Phone: Comment on above: Expected: 02/23/2024 (Approximate), Expires: 02/22/2025 Start: 02-23-2024 End: 02-22-2025 Measurement of glucose 1 hour after glucose challenge for glucose tolerance test Glucose tolerance, 1 hour Lab Routine Diabetes mellitus screening Expected: 02/23/2024 (Approximate), Expires: 02/22/2025 [facility] Comment on above: Expected: 02/23/2024 (Approximate), Expires: 02/22/2025 Start: 02-23-2024 End: 02-22-2025 US for US OB SCAN FOR GROWTH Imaging Routine size inconsistent with dates H/O premature delivery Expected: 02/23/2024 (Approximate), Expires: 02/22/2025 [facility] Comment on above: Expected: 02/23/2024 (Approximate), Expires: 02/22/2025 Start: 02-23-2024 End: 02-23-2024 Patient encounter procedure 02/23/2024 1:40 PM EDT Routine [facility] [address] [phone] Mena Ann PA [address] [place], [facility] Arrived [facility] Comment on above: Arrived Start: 02-18-2024 End: 02-18-2024 Patient encounter procedure 02/18/2024 2:30 PM EDT Routine [facility] [address] [place] [address] Mena Ann PA [address] [place], [facility] Start: 01-11-2024 COVID-19 Vaccine ( season) COVID-19 Vaccine ( season) [facility] Start: 01-11-2024 Influenza vaccination N [facility] Start: 09-17-2023 End: 09-17-2023 Nutrition therapy 09/17/2023 2:30 PM EDT [facility] Nutrition Therapy [address] [place] [id number] Anna Ortiz, [address]ARM[address] [place] [address] Red/Davis/0 Diet/[place] Nutrition Therapy Comment on above: Red/Davis/0 Diet/ [place] Start: 09-12-2023 End: 09-12-2023 Admission to same day surgery center 09/12/2023 3:30 PM EDT [facility] General Surgery [address] [id number] Joo Bradley MD [address] [place] [address] Red/Kirk/0 Diet/[place] General Surgery Comment on above: Red/Kirk/0 Diet/Anth em Start: 09-05-2023 End: 09-05-2023 ambulatory 09/05/2023 11:45 AM EDT Results Only [facility] [address] [place] [address] [place] [address] [facility] Start: 08-20-2023 End: 11-19-2023 25-hydroxyvitamin D3 [Mass/volume] in Serum or Plasma VITAMIN D 25 HYDROXY Lab Routine Body mass index (BMI) of 50-59.9 in adult (HCC) Expected: 08/20/2023, Expires: 11/19/2023 [facility] Work Phone: Comment on above: Expected: 08/20/2023 , Expires: 11/19/2023 Start: 08-20-2023 End: 11-19-2023 CBC W Auto Differential panel - Blood COMPLETE BLOOD COUNT AND DIFFERENTIAL Lab Routine Body mass index (BMI) of 50-59.9 in adult (HCC) Expected: 08/20/2023, Expires: 11/19/2023 [facility] Work Phone: Comment on above: Expected: 08/20/2023 , Expires: 11/19/2023 Start: 08-20-2023 End: 11-19-2023 Cobalamin (Vitamin B12) [Mass/volume] in Serum or Plasma VITAMIN B12 Lab Routine Body mass index (BMI) of 50-59.9 in adult (HCC) Expected: 08/20/2023, Expires: 11/19/2023 [facility] Work Phone: Comment on above: Expected: 08/20/2023 , Expires: 11/19/2023 Start: 08-20-2023 End: 11-19-2023 Comprehensive metabolic 2000 panel - Serum or Plasma COMPREHENSIVE METABOLIC PANEL Lab Routine High blood cholesterol Body mass index (BMI) of 50-59.9 in adult (HCC) Expected: 08/20/2023, Expires: 11/19/2023 [facility] Work Phone: Comment on above: Expected: 08/20/2023 , Expires: 11/19/2023 Start: 08-20-2023 End: 11-19-2023 Ferritin [Mass/volume] in Serum or Plasma FERRITIN Lab Routine Body mass index (BMI) of 50-59.9 in adult ([facility]) Expected: 08/20/2023, Expires: 11/19/2023 [facility] Work Phone: Comment on above: Expected: 08/20/2023 , Expires: 11/19/2023 Start: 08-20-2023 End: 11-19-2023 Folate [Mass/volume] in Serum or Plasma FOLATE, SERUM Lab Routine Body mass index (BMI) of 50-59.9 in adult ([facility]) Expected: 08/20/2023, Expires: 11/19/2023 [facility] Work Phone: Comment on above: Expected: 08/20/2023 , Expires: 11/19/2023 Start: 08-20-2023 End: 11-19-2023 Helicobacter pylori IgG Ab [Presence] in Serum or Plasma by Immunoassay H PYLORI IGG AB Lab Routine Body mass index (BMI) of 50-59.9 in adult ([facility]) Expected: 08/20/2023, Expires: 11/19/2023 [facility] Work Phone: Comment on above: Expected: 08/20/2023 , Expires: 11/19/2023 Start: 08-20-2023 End: 11-19-2023 Hemoglobin A1c in Blood HEMOGLOBIN A1C Lab Routine Body mass index (BMI) of 50-59.9 in adult ([facility]) Expected: 08/20/2023, Expires: 11/19/2023 [facility] Work Phone: Comment on above: Expected: 08/20/2023 , Expires: 11/19/2023 Start: 08-20-2023 End: 11-19-2023 Iron and Iron binding capacity panel - Serum or Plasma IRON AND TIBC Lab Routine Body mass index (BMI) of 50-59.9 in adult ([facility]) Expected: 08/20/2023, Expires: 11/19/2023 [facility] Work Phone: Comment on above: Expected: 08/20/2023 , Expires: 11/19/2023 Start: 08-20-2023 End: 11-19-2023 Lipid 1996 panel - Serum or Plasma LIPID PANEL BASIC Lab Routine High blood cholesterol Body mass index (BMI) of 50-59.9 in adult ([facility]) Expected: 08/20/2023, Expires: 11/19/2023 [facility] Work Phone: Comment on above: Expected: 08/20/2023 , Expires: 11/19/2023 Start: 08-20-2023 End: 11-19-2023 Natriuretic peptide.B prohormone N-Terminal [Mass/volume] in Serum or Plasma NT PRO BNP Lab Routine Body mass index (BMI) of 50-59.9 in adult ([facility]) Expected: 08/20/2023, Expires: 11/19/2023 [facility] Work Phone: Comment on above: Expected: 08/20/2023 , Expires: 11/19/2023 Start: 08-20-2023 End: 11-19-2023 NICOTINE & METAB, UR NICOTINE & METAB, UR Lab Routine Body mass index (BMI) of 50-59.9 in adult ([facility]) Expected: 08/20/2023, Expires: 11/19/2023 [facility] Work Phone: Comment on above: Expected: 08/20/2023 , Expires: 11/19/2023 Start: 08-20-2023 End: 11-19-2023 Thyrotropin [Units/volume] in Serum or Plasma THYROID STIMULATING HORMONE Lab Routine Angel's thyroiditis Body mass index (BMI) of 50-59.9 in adult ([facility]) Expected: 08/20/2023, Expires: 11/19/2023 [facility] Work Phone: Comment on above: Expected: 08/20/2023 , Expires: 11/19/2023 Start: 08-20-2023 End: 11-19-2023 TOXICOLOGY SCREEN, ROUTINE URINE TOXICOLOGY SCREEN, ROUTINE URINE Lab Routine Body mass index (BMI) of 50-59.9 in adult ([facility]) Expected: 08/20/2023, Expires: 11/19/2023 [facility] Work Phone: Comment on above: Expected: 08/20/2023 , Expires: 11/19/2023 Start: 08-20-2023 End: 11-19-2023 VITAMIN B1 (THIAMINE), WHOLE BLOOD VITAMIN B1 (THIAMINE), WHOLE BLOOD Lab Routine Body mass index (BMI) of 50-59.9 in adult (HCC) Expected: 08/20/2023, Expires: 11/19/2023 [facility] Work Phone: Comment on above: Expected: 08/20/2023 , Expires: 11/19/2023 Start: 05-12-2023 Behavioral Health Screening Behavioral Health Screening [facility] Start: 01-10-2023 Covid-19 Vaccine ( season) Covid-19 Vaccine () [facility] Start: 12-02-2021 Plain chest X-ray XR chest 1V portab [facility] Start: 12-02-2021 XR Chest Single view [facility] Work Phone: Start: 2021 Screening for malign ant neoplasm of cervix HPV Testing [facility] Start: 2012 Screening for malign ant neoplasm of cervix Pap Testing [facility] Start: 2010 Hepatitis B Vaccine (1 of 3 - 19+ 3-dose series) Hepatitis B Vaccine (1 of 3 - 19+ 3-dose series) [facility] Start: 2009 Adult BMI Follow Up Plan Adult BMI Follow Up Plan [facility] Start: 2009 HIV screening HIV Screening [facility] Start: 2003 Depression Screening Depression [facility] Start: 2002 DTaP,Tdap and Td Vaccines (6 - Tdap) DTaP,Tdap and Td Vaccines (6 - Tdap) [facility] Start: 2002 Urine microalbumin profile DTaP,Tdap,Td Vaccine (6 - Tdap) [facility] End: 08-19-2024 ECG COMPLETE ECG COMPLETE ECG Routine Body mass index (BMI) of 50-59.9 in adult (HCC) 1 Occurrences starting 08/20/2023 until 08/19/2024 [facility] Work Phone: Comment on above: 1 Occurrences starti ng 08/20/2023 until 08/19/2024 Patient Education [facility] Work Phone: Patient referral [facility] Work Phone: Thyrotropin [Units/volume] in Serum or Plasma TSH Lab Routine Thyroid disease (CMS/HCC) Ordered: 04/22/2024 [facility] Comment on above: Ordered: 04/22/2024 End: 09-18-2024 US Abdomen RUQ US ABD RIGHT UPPER QUADRANT Radiology Routine Body mass index (BMI) of 50-59.9 in adult (HCC) 1 Occurrences starting 08/20/2023 until 09/18/2024 [facility] Work Phone: Comment on above: 1 Occurrences starti ng 08/20/2023 until 09/18/2024 End: 09-18-2024 XR Chest PA and Lateral XR CHEST 2V FRONTAL/LAT Radiology Routine Body mass index (BMI) of 50-59.9 in adult (HCC) 1 Occurrences starting 08/20/2023 until 09/18/2024 [facility] Work Phone: Comment on above: 1 Occurrences starti ng 08/20/2023 until 09/18/2024 [id number] 310 IVF Work Phone: [facility] c NEGATED: Highlighted row has been ruled out! Planned Goals not documented [id number] 310 IV[facility] Work Phone: Immunizations Immunization Date Immunization Notes Care Provider Fa cili 03-11-2023 influenza virus vacc ine, unspecified formulation Tacho Menendez DO Work Phone: [facility] Healthcare Payers Date Payer Category Payer Self-pay [id number] 2022 Medicaid [id number] 2022 Medicaid [id number] 1991 Unknown [id number] 2.16.840.1.625769.3.579.2.59 3 1991 Unknown [id number] 2.16.840.1.705231.3.579.2.12 86 1991 Unknown [id number] 2.16.840.1.208853.3.579.2.12 86 1991 Unknown [id number] 2.16.840.1.243433.3.579.2.12 86 1991 Unknown [id number] 2.16.840.1.944464.3.579.2.12 86 1991 Unknown [id number] 2.16.840.1.358118.3.579.2.12 86 1991 Unknown [id number] 2.16.840.1.537640.3.579.2.12 59 1991 Unknown [id number] 2.16.840.1.541108.3.579.2.12 59 1991 Unknown [id number] 2.16.840.1.642531.3.579.2.12 59 1991 Unknown [id number] 2.16.840.1.944226.3.579.2.12 59 1991 Unknown [id number] 2.16.840.1.696241.3.579.2.12 59 1991 Unknown [id number] 2.16.840.1.044006.3.579.2.12 59 1991 Unknown [id number] 2.16.840.1.449573.3.579.2.12 59 1991 Unknown [id number] 2.16.840.1.720554.3.579.2.12 59 1991 Unknown [id number] 2.16.840.1.604412.3.579.2.12 59 1991 Unknown [id number] 2.16.840.1.908243.3.579.2.12 59 1959 Medicaid [id number] Private Health Insurance [facility] [id number] Unknown [id number] Unknown Regular Insurance [id number] Unknown [employer] [id number] Unknown Regular Auto/Medical [id number] Unknown [id number] 2.16.840.1.775913.3.579.2.53 1 Unknown [id number] 2.16.840.1.314266.3.579.2.53 1 Unknown [id number] 2.16.840.1.396380.3.579.2.53 1 Unknown [id number] 2.16.840.1.609613.3.579.2.53 1 Unknown [id number] 2.16.840.1.532725.3.579.2.53 1 Social History Date Type Detail Facility Start: 12-02-2021 End: 05-17-2023 Tobacco smoking status NCIS Never smoked tobacco (finding) [facility] Start: 1990 Sex Assigned At Female [facility] Start: 08-20-2023 End: 10-30-2023 Sex Assigned At [facility] Other Start: 05-17-2023 End: 08-20-2023 Tobacco use and exposure Smokeless tobacco non-user [facility] Work Phone: Start: 08-20-2023 End: 05-17-2024 Alcohol intake Current drinker of alcohol (finding) [facility] Start: 08-20-2023 End: 10-30-2023 History of Social function [facility] National Score (1-100), lower number is lower risk 86 [facility] Start: 08-20-2023 Alcohol Comment occ [facility] Start: 1990 Sex Assigned At Not on file C [facility] Start: 08-26-2023 Gender identity Identifies as female gender (finding) [facility] Start: 08-26-2023 Sexual orientation Heterosexual (fin ding) [facility] Start: 09-14-2023 [facility] How often to you hav [...] beverage intake Ex-drinker (finding) [facility] Start: 12-13-2014 End: 05-19-2024 Sex Female (finding) [facility] NEGATED: Highlighted row - - [id number] 310 IVF Work Phone: Functional Status Date Assessment Result Facility NEGATED: Highlighted row Functional performance Functional status health issues are not documented Disease [id number] 310 IV[facility] Work Phone: Mental Status Date Assessment Result Facility NEGATED: Highlighted row Cognitive function [Interpretation] Cognitive status health issues are not documented Disease [id number] 310 IV[facility] Work Phone: Clinical Notes 01-08-2023 [...] 06/2019 OTHER SURGICAL HISTORY 2020 IUI 07/10/20 [facility] SALPINGECTOMY Left 2012 ectopic REVIEW OF [...] nursing note reviewed. Exam conducted with a modern dancer present. Vitals: Estimated body mass index is [...] Tacho Menendez DO documented in this encounter [facility] 05-03-2024 History of Presen t illness [...] 06/2019 OTHER SURGICAL HISTORY 2020 IUI 07/10/20 [facility] SALPINGECTOMY Left 2011 ectopic REVIEW [...] of: GERARDO Vazquez documented in this encounter [facility] 04-22-2024 History of Presen t illness [...] obesity with BMI of 50.0-59.9, adult (CMS/[facility]) Vaginal delivery Social History Tobacco [...] 06/2019 OTHER SURGICAL HISTORY 2020 IUI 07/10/20 [facility] SALPINGECTOMY Left 2011 ectopic REVIEW [...] nursing note reviewed. Exam conducted with a modern dancer present. Vitals: Estimated body mass index is [...] Tacho Menendez DO documented in this encounter [facility] 04-06-2024 History of Presen t [...] 06/2019 OTHER SURGICAL HISTORY 2020 IUI 07/10/20 [facility] SALPINGECTOMY Left 2011 ectopic REVIEW [...] 06/2019 OTHER SURGICAL HISTORY 2020 IUI 07/10/20 [facility] SALPINGECTOMY Left 2012 ectopic REVIEW OF [...] nursing note reviewed. Exam conducted with a modern dancer present. Vitals: Estimated body mass index is [...] Tacho Menendez DO documented in this encounter [facility] 02-23-2024 History of Presen t [...] obesity with BMI of 50.0-59.9, adult (CMS/[facility]) Vaginal delivery HISTORY PAST MEDICAL HISTORY SOCIAL HISTORY Past Medical History: Diagnosis Date Abdominal pain Breast pain, right Cholelithiasis Encounter for cervical smear to confirm findings of recent normal smear following initial abnormal smear Angel's disease (CMS/HCC) Hypothyroidism (CMS/HCC) Morbid obesity (CMS/HCC) Morbid obesity with BMI of 50.0-59.9, adult ([facility]) Vaginal delivery Social History Tobacco [...] 06/2019 OTHER SURGICAL HISTORY 2020 IUI 07/10/20 [facility] SALPINGECTOMY Left 2011 ectopic REVIEW [...] nursing note reviewed. Exam conducted with a modern dancer present. Vitals: Estimated body mass index is [...] of: GERARDO Vazquez documented in this encounter [facility] 01-20-2024 History of Presen t illness [...] recent normal smear following initial abnormal smear Nagel's disease (CMS/HCC) Hypothyroidism ([facility]/HCC) Morbid obesity ([facility]) Morbid obesity with BMI of 50.0-59.9, adult ([facility]) Vaginal delivery HISTORY PAST MEDICAL HISTORY SOCIAL HISTORY Past Medical History: Diagnosis Date Abdominal pain Breast pain, right Cholelithiasis Encounter for cervical smear to confirm findings of recent normal smear following initial abnormal smear Angel's disease (CMS/HCC) Hypothyroidism (CMS/HCC) Morbid obesity ([facility]) Morbid obesity with BMI of 50.0-59.9, adult ([facility]) Vaginal delivery Social History Tobacco [...] 06/2019 OTHER SURGICAL HISTORY 2020 IUI 07/10/20 [facility] SALPINGECTOMY Left 2011 ectopic REVIEW [...] nursing note reviewed. Exam conducted with a modern dancer present. Vitals: Estimated body mass index is [...] notified. Pt has follow up appt at [facility] in four weeks. Pt to return to office in four weeks for scheduled OB appt. Documented by Priscilla Fernandez LPN on behalf of: Tacho Menendez DO documented in this encounter [facility] 10-09-2023 Note HNO ID: [id number] Author: LATONIA GREENE, PhD Service: ? Author Type: Psychologist Type: Progress Notes Filed: 10/17/2023 11:09 Note Text: [facility] BARIATRIC SURGERY BEHAVIORAL HEALTH EVALUATION BMI Surgical Pathway Visit type: Psychology Visit DATE OF SERVICE: October 09, 2023 TIME OF SERVICE: 1:00 PM - 2:00 PM COST CENTER: [facility] CPT CODE: - 6771141 Virtual Psych Diagnostic Eval BILLING CODE: ENDO PSYL LASHON Greene DATE OF FIRST SERVICE THIS CYCLE: October 09, 2023 SESSION #: 1 I have communicated my name and active licensure. The patient's identity and physical location (see below) were verified at the time of this visit. Either the patient or their legal in store marketing representative has been informed of the risks and benefits of -- and alternatives to -- treatment through a remote evaluation and consents to proceed with the evaluation remotely. This evaluation is NOT intended for forensic, disability or child custody purposes. The patient e-signed a copy of the consent form via [employer] and the [facility] insurance benefits, fees for service, emergency procedures, [...] in case of emergency and/or disconnection. [address] [place] [address] (Change address in [facility], was mother) Alternate Public Aid Eligibility Assistant Bibi Arrieta (Mother) [phone] (Home Phone) Patient identified the following plan to follow in case of emergency: Go to emergency room (nearest is [facility]) or call 911. IDENTIFYING INFORMATION: Ms. [...] pt has l (more content not included)... [facility] 09-22-2023 Telephone encounter Note Can not schedule patient as there is already a patient scheduled for that day and time. Please advise. Thanks Meme Castrejon [facility] 09-22-2023 Telephone encounter Note ----- Message from Anna Ortiz RD sent at 09/17/2023 3:17 PM EDT ----- Regarding: virtual follow up Please schedule for a virtual up 6/7 at 1. The patient is aware, no call needed. Thank you! Anna [facility] 09-22-2023 Miscellaneous Notes Can not [...] Tonya Senior APRN.MERON documented in this encounter [facility] 09-17-[address] [...] full-liquid diet. Examples: Slim Fast Advanced Nutrition [place] Breakfast Essentials Light Start Drink mixed with [...] Bariatric Multivitamin and Calcium Citrate (total of 4261-0466 mg/day) * take calcium citrate separately from Multivitamin with iron at least 2 hours apart and 4 hours apart from additional calcium www.[email or web address] - Bariatric Choice: 4 Complete Multivitamins (chewables) [...] grams per day documented in this encounter [facility] 09-17-2023 Note HNO ID: [id number] Author: ANNA ORTIZ RD Service: ? Author Type: Registered Dietitian Type: Progress Notes Filed: 09/17/2023 15:19 Note Text: [facility] Nutrition Therapy: Virtual Consult - Initial Assessment I have communicated my name and active licensure. The patient?s identity and physical location were verified at the time of this visit. Either the patient or their legal in store marketing representative has been informed of the risks [...] to Surgery by next session [email or web address] 2. Do not [...] Examples: ? Slim Fast Advanced Nutrition ? [place] Breakfast Essentials ?Light Start? Drink mixed with [...] in the AM, 2 in the PM) www.[email or web address] - YesPlz! Health: 1 Bariatric Multivitamin and Calcium Citrate (total of 5012-0594 mg/day) * take calcium citrate separately from Multivitamin with iron at least 2 hours apart and 4 hours apart from additional calcium www.[email or web address] - Bariatric Choice: 4 Complete Multivitamins (chewables) per day Www.bariatricCreoptix.Qitio - Bariatric Advantage: 2 Multivitamins and 3 Calcium Citrate Chewables per day * take calcium citrate separately from Multivitamin with iron at least 2 hours apart and 4 hours apart from additional calcium Www.[email or web address] Start practicing eating slowly, chewing each bite [...] and using Phen (more content not included)... [facility] 09-17-2023 History of Presen t illness Narrative [facility] Nutrition Therapy: Virtual Consult - Initial Assessment I have communicated my name and active licensure. The patient s identity and physical location were verified at the time of this visit. Either the patient or their legal in store marketing representative has been informed of the risks [...] Your Guide to Surgery by next session [email or web address]/ [email or web address]?la=[email or web address] 2. Do not skip [...] full-liquid diet. Examples: Slim Fast Advanced Nutrition [place] Breakfast Essentials Light Start Drink mixed with [...] in the AM, 2 in the PM) www.[email or web address].[email or web address] - YesPlz! Health: 1 Bariatric Multivitamin and Calcium Citrate (total of 3336-1513 mg/day) * take calcium citrate separately from Multivitamin with iron at least 2 hours apart and 4 hours apart from additional calcium www.Grafighters.Qitio - Bariatric Choice: 4 Complete Multivitamins (chewables) per day Www.bariatricchoice.com - Bariatric Advantage: 2 Multivitamins and 3 Calcium Citrate Chewables per day * take calcium citrate separately from Multivitamin with iron at least 2 hours apart and 4 hours apart from additional calcium Www.[email or web address] Start practicing eating slowly, chewing each bite [...] suggested by 180 Initial weight: 295 lbs. [place] body weight is 155 lbs. Excess body weight is 140 lbs. Goal weight pre-op is 281 lbs. Protein needs are estimated at 85gm (1.2 - protein/kg IBW) Patient meets the National Institutes of Health guidelines for weight loss surgery and has [employer] Insurance therefore is required to complete 0 [...] TIME: 2:25 PM documented in this encounter [facility] 09-11-2023 Telephone encounter Note Attempted to call pt, re: hypothyroid and low vitamin d levels, no answer, left vm. Tonya Senior APRN.COACH CLEANER [facility] 09-01-2023 Note HNO ID: [id number] Author: LATONIA GREENE, PhD Service: ? Author Type: Psychologist Type: Progress Notes Filed: 09/01/2023 13:22 Note Text: [facility] Progress Note 09/01/2023 Billing code: Jc Patient did not attend, cancel, or reschedule this appointment. Provider left HIPAA compliant voicemail and Extra Lifehart message with contact information to reschedule. Latonia Greene, PhD Clinical Psychologist [facility] 09-01-2023 History of Presen t illness Narrative [facility] Progress Note 09/01/2023 Billing code: Jc Patient did not attend, cancel, or reschedule this appointment. Provider left HIPAA compliant voicemail and DragonWavet message with contact information to reschedule. Latonia Greene, PhD Clinical Psychologist documented in this encounter [facility] 08-20-2023 Note HNO ID: [id number] Author: TONYA SENIOR APRN.COACH CLEANER Service: ? Author Type: Nurse Practitioner Type: Progress Notes Filed: 08/20/2023 16:21 Note Text: have communicated my name and active licensure. The patient's identity and physical location were verified at the time of this visit. Either the patient or their legal in store marketing representative has been informed of the risks and benefits of -- and alternatives to -- treatment through a remote evaluation and consents to proceed with the evaluation remotely. BMI MEDICAL CONSULT I have communicated my name and active licensure. The patient's identity and physical location were verified at the time of this visit. Either the patient or their legal in store marketing representative has been informed of the risks [...] Exercise: active lifestyle with toddler, works in [employer] at [employer] Functional Capacity: -Walk 4 blocks on level [...] HEMOGLOBIN A1C - (more content not included)... [facility] 08-20-2023 History of Presen t illness Narrative Images from the original note were not included. have communicated my name and active licensure. The patient's identity and physical location were verified at the time of this visit. Either the patient or their legal in store marketing representative has been informed of the risks and benefits of -- and alternatives to -- treatment through a remote evaluation and consents to proceed with the evaluation remotely. BMI MEDICAL CONSULT I have communicated my name and active licensure. The patient's identity and physical location were verified at the time of this visit. Either the patient or their legal in store marketing representative has been informed of the risks [...] PANEL - LIPID PANEL BASIC Tonya Senior APRN.COACH CLEANER -- Recommend that she should not become [...] Obesity Medicine Visit documented in this encounter [facility] 06-13-2023 Evaluation note Encounter Date [...] 8 weeks -Handed patient self referral to PSYCHIATRIC bariatric surgery program -Wdthg-sp-lhay A1c December 2022 5.4%-Follow up in clinic in 8 weeksThis note was created with voice recognition software. Please excuse errors in joy loading machine operator. Jun, Dietary surveillance and counseling (ICD-10 [...] for a goal of 5% weight reduction. [facility] 08-30-2023 Evaluation note* Encounter Date Diagnosis [...] on in the past and denies side ikuoaxw-Gjzbo-hv-care A1c today 5.4%-Follow up in clinic in 4 weeksThis note was created with voice recognition software. Please excuse errors in joy loading machine operator. Dec, Dietary surveillance and counseling (ICD-10 [...] premade protein drink for breakfast, by plain Mongolian yogurt and flavor yourself with cinnamon or [...] with the patient, and documenting clinical information. [facility] Other [place] complaint+Reason for visit Narrative* Chief Complaint Obesity Reason for Visit Exercise counseling Severe obesity (BMI >= 40) [facility] Work Phone: chief complaint+Reason for visit Narrative* Chief Complaint Pos test, Cramping, Vaginal bleeding Reason for Visit Exercise counseling Severe obesity (BMI >= 40) [facility] Work Phone: Evaluation noteNo assessment information available [facility] Work Phone: Evaluhjygk note* Diagnosis Onset Date Resolution Status Exercise counseling acute Severe obesity (BMI >= 40) delilah kevin [facility] Work Phone: Evaluation note* Diagnosis Body mass index (BMI) of 50-59.9 in adult (HCC)- Primary Body Mass Index 50.0-59.9, adult Angel's thyroiditis Chronic lymphocytic thyroiditis High blood cholesterol Pure hypercholesterolemia [facility] Diagnosis NO SHOW- Primary [facility]* Diagnosis Obesity, Class III, BMI 40-49.9 (morbid obesity) ([facility])- Primary Morbid obesity Dietary counseling Dietary surveillance and counseling documented [facility]* Diagnosis Vitamin D deficiency- Primary Unspecified vitamin D deficiency [facility]* Diagnosis 25 [...] [facility] Diagnosis Third trimester state, [...] prior , currently documented in this encounter [facility]* Diagnosis Second trimester state, [...] Fallopian tube removed Hospitalization History See Above [facility] Other Hospital Discharge instructions Additional Instructions You may take ckjd-ece-ofufurq cough and cold medication as needed You may take [id number] Tylenol and/or ibuprofen as needed Increase oral fluids Follow-up with family doctor as needed Return to the ER for any acute difficulty breathing high fever vomiting or any [facility] Work Phone: Hospital Discharge instructions Additional Instructions Nothing into vagina until seen by [employer] SAL[employer] SUPERVISOR May take Tylenol for discomfort Increase oral fluids Follow-up with [employer] SAL[employer] SUPERVISOR Return to the ER for heavy bleeding greater than a pad an hour feeling dizzy lightheaded or any other concernsK[facility] Why [facility] Back Work Phone: Hospital Discharge instructions Additional Instructions Follow-up with your OB in the next week.[facility] Why Not Give Back Work Phone: InstructionsNot on filedocumented in this encounter [facility] SystemReason for [facility] (narrative)* Diagnostic Procedure Only (Routine) - Pending Review Specialty Diagnoses / Procedures Referred By Contac t Referred To Contact [facility] Diagnoses Body mass index (BMI) of 50-59.9 in adult (HCC) Procedures US ABD RIGHT UPPER QUADRANT US ABDOMINAL REAL TIME W/IMAGE LIMITED Tonya Senior APRN.CNP [address] [place] [address] [place] [address] Referral ID Status Reason Start Date Expiration Date Visits Requested Visits Authorized [id number] Pending Review Auto-Generat ed Referral 08/20/2023 09/18/2024 1 1 * Outpatient Procedure (Routine) - Pending Review Specialty Diagnoses / Procedures Referred By Contac t Referred To [facility] Diagnoses Body mass index (BMI) of 50-59.9 in adult (HCC) Procedures ECG COMPLETE ECG ROUTINE ECG W/LEAST 12 LDS W/I&R Tonya Senior APRN.CNP [address] [place] [address] [facility] [address] [place] [id number] Referral ID Status Reason Start Date Expiration Date Visits Requested Visits Authorized [id number] Pending Review Auto-Generat ed Referral 08/20/2023 08/19/2024 1 1 [facility] Summary Purpose Family History No [...] section and content) DATE CREATED AUTHOR 10/31/2017 [facility] DATE CREATED AUTHOR AUTHOR'S ORGANIZ ATION 04/23/2020 [facility] DATE CREATED AUTHOR AUTHOR'S ORGANIZ ATION 08/08/2020 [facility] DATE CREATED AUTHOR AUTHOR'S ORGANIZ ATION 08/22/[address] [facility] ical Center DATE CREATED AUTHOR AUTHOR'S ORGANIZ ATION 06/11/2022 [facility] DATE CREATED AUTHOR AUTHOR'S ORGANIZ ATION 09/06/2023 [facility] DATE CREATED AUTHOR AUTHOR'S ORGANIZ ATION 10/03/2023 [facility] DATE CREATED AUTHOR AUTHOR'S ORGANIZ ATION 10/18/2023 [facility] DATE CREATED AUTHOR AUTHOR'S ORGANIZ ATION 01/20/2024 [facility] DATE CREATED AUTHOR AUTHOR'S ORGANIZ ATION 04/30/2024 [facility] DATE CREATED AUTHOR AUTHOR'S ORGANIZ ATION 05/23/2024 [facility] EPIC DATE CREATED AUTHOR AUTHOR'S ORGANIZ ATION 05/24/2024 [facility] Care Teams (unrecognized sec tion and content) Team Status: Inactive Member Role Status Dates Services Family Health Primary Care Provider Active Ck oT PA-C Emergency Provider Active Team Status: Active Member Role Status Dates Services Family Health Primary Care Provider Active Team Status: Inactive Member Role Status Dates Services Family Health Primary Care Provider Active Marychuy Kyle BELT NOTCHER-BC Emergency Provider Active Team Status: Inactive Member Role Status Dates Nicholas Michaels DO Attending Provider Active St art: June 13, 2023 End: June 13, 2023 Team Status: Active Member Role Status Dates Services Family Health Primary Care Provider Active Start: June 13, 2023 Nicholas Michaels DO Attending Provider Active St art: June 13, 2023 Team Status: Inactive Member Role Status Dates Services Family [facility] Primary Care Provider Active Start: August 07, 2023 End: August 07, 2023 Nicholas Michaels DO Attending Provider Active St art: August 07, 2023 End: August 07, 2023 Team Status: Inactive Member Role Status Dates Services Family [facility] Primary Care Provider Active Start: October 06, 2023 End: October 06, 2023 Marychuy Kyle BELT NOTCHER-BC Emergency Provider Active Start: October 06, 2023 End: October 06, 2023 Team Status: Inactive Member Role Status Dates Services Family [facility] Primary Care Provider Active Start: February 26, 2024 End: February 26, 2024 Ck To PA-C Emergency Provider Active Start: February 26, 2024 End: February 26, 2024 Team Status: Inactive Member Role Status Dates Services Family [facility] Primary Care Provider Active Start: March [...] or prosecute any alcohol or drug abuse patient.[facility] HospitalIn the event this information is protected by the Federal Confidentiality of Alcohol and Drug Abuse Patient Records regulations: The Federal rules restrict any use of the information to criminally investigate or prosecute any alcohol or drug abuse patient.[facility] HospitalIn the event this information is protected by the Federal Confidentiality of Alcohol and Drug Abuse Patient Records regulations: The Federal rules restrict any use of the information to criminally investigate or prosecute any alcohol or drug abuse patient.[facility] HospitalIn the event this information is protected by the Federal Confidentiality of Alcohol and Drug Abuse Patient Records regulations: The Federal rules restrict any use of the information to criminally investigate or prosecute any alcohol or drug abuse patient.[facility] HospitalIn the event this information is protected by the Federal Confidentiality of Alcohol and Drug Abuse Patient Records regulations: The Federal rules restrict any use of the information to criminally investigate or prosecute any alcohol or drug abuse patient.[facility] HospitalIn the event this information is protected by the Federal Confidentiality of Alcohol and Drug Abuse Patient Records regulations: The Federal rules restrict any use of the information to criminally investigate or prosecute any alcohol or drug abuse patient.[facility] FOR RECORDS PERTAINING TO PATIENTS [...] BE BASED ON THE PRIMARY CLINICAL RECORDS. [facility]. provides no warranty or guarantee of the accuracy or completeness of information in this document.
== END 2024-05-25 23:35 | disposition home or self-care (01) ==
LOC: FBC 05-25 23:40 → FBCO 05-25 23:42
PROVIDERS: Visit Provider Obstetrics & Gynecology
DX: O26.893 Other specified pregnancy related conditions, third trimester (principal); Z3A.38 38 weeks gestation of pregnancy
CPT/HCPCS: 36415; 59025; 82565; 82570; 84156; 84450; 84460; 84520; 84550; 85025; 85384; 85610; 85730

== ENCOUNTER 2024-05-28 00:19 | Outpatient (OUT) | payer MEDICAID, SELFPAY ==
--- OUTSIDE RECORDS SUMMARY | 2024-05-28 00:23 | XMS_ITS | CCD ---
Author Organization [facility] Care Team Providers Care Commissary Steward Name Role Phone Agustin Patton Unavailable Unavailable Agustin Patton Unavailable Unavailable Bayron Mccarty Unavailable Unavailable Unavailable Unavailable Unavailable Unavailable Unavailable Unavailable [facility] Primary Care Provider DEMETRIUS To Emergency Provider DR TACHO MENENDEZ Attending Unavailable DR TACHO MENENDEZ Consulting Unavailable DR TACHO MENENDEZ Admitting Unavailable [facility] Primary Care Provider Anabella [facility] Marychuy E Emergency Provider Nicholas Michaels Unavailable [facility] Services Primary Care Provider DO Nicholas Michaels Attending Provider [phone] Unavailable Primary Care Provider Unavailabl e Unavailable Primary Care Provider Unavailabl e LATONIA GREENE Attending Unavailable TONYA SENIOR Attending Unavailable [facility] Primary Care Provider Anabella [facility] Marychuy E Emergency Provider LATONIA GREENE Referring Unavailable LATONIA GREENE Attending Unavailable ANNA ORTIZ Attending Unavailable TONYA SENIOR Referring Unavailable TONYA SENIOR Referring Unavailable TACHO MENENDEZ Referring Unavailable MAKEDA GROSS Attending Unavailable TACHO MENENDEZ Referring Unavailable Unavailable Primary Care Provider Unavailabl e [facility] Primary Care Provider DEMETRIUS To Emergency Provider Unavailable Primary Care Provider UnavailDO Devika Nicholas Emergency Provider SHON, TACHO R Referring Unavailable SHON, TACHO R Referring Unavailable SHON, TACHO R Referring Unavailable [facility] Primary Care Provider Ck To PA-C Emergency Provider Devika De La Garza DO Emergency Provider Shon DO, Tacho Attending Provider SHON, TACHO Attending Unavailable MARISSA, MENA Attending Unavailable SHON, TACHO Attending Unavailable MARISSA, MENA Attending Unavailable SHON, TACHO Attending Unavailable MARISSA, MENA Attending Unavailable SHON, TACHO Attending Unavailable MARISSA, MENA Attending Unavailable SHON, TACHO Attending Unavailable [facility] Primary Care Unavaila ble Bullimore, Marychuy E Admitting Unavailable Bullimore, Marychuy E Attending Unavailable Shon, Tacho Admitting Unavailable Shon, Tacho Attending Unavailable [facility] Primary Care Unavaila Nicholas Willams Admitting Unavailable Nicholas Michaels Attending Unavailable Ck To Attending Unavailable [facility] Primary Care Unavaila Ck Castrejon Admitting Unavailable Devika De La Garza Admitting Unavailable Devika De La Garza Attending Unavailable [facility] Care Unavaila ble Medications Current Medications [...] mg/ml oral solution (3 sources) Phenothiazine, Uncompetitive C-jnwbjf-F-aspartate Receptor Antagonist, Sigma-1 Agonist Start: 02-26-2024 take 1 mL by mouth every six hours as needed for cough Promethazine-Dm 6.25-15 mg/5 mL syrup Active 5 ML PO Q6H as needed for cough 118 February 25, 2024 11:00pm fluticasone propionate 0.05 mg/actuat metered dose nasal spray (3 sources) Corticosteroid Start: 02-26-2024 take 1 spray(s) nasal route twice daily Fluticasone Propionate (Flonase Allergy Relief) 50 mcg/actuation spray,suspension Active 1 SPRAY INTRANASAL Twice daily February 25, 2024 11:00pm administer into each nostril levothyroxine sodium 0.05 mg oral tablet (20 sources) l-Thyroxine Start: 05-25-2024 take 0.5 tablet by mouth before mealtime levothyroxine (Synthroid, Levoxyl) 50 MCG tablet Indications: Elevated TSH TAKE 1/2 TABLET BY MOUTH IN THE MORNING BEFORE A MEAL 45 tablet 05/25/2024 Active Start: 11-18-2023 End: 02-16-2024 take 0.5 tablet [...] Daily 30 tablet 11 10/30/2023 10/29/2024 Active Seffner (No Known Home Meds) (3 sources) Start: 10-06-2023 Seffner (No Kn own Home Meds) Active October 06, 2023 12:00am Start: 06-18-2022 Seffner (No Kn own Home Meds) Active June [...] oral solution (8 sources) alpha-Adrenergic Agonist, Uncompetitive D-ehvhky-U-asparta te Receptor Antagonist, Sigma-1 Agonist Start: 2 [...] EVERY 4-6 HOURS as needed for pain 20 July 19, 2019 11:00pm July 28, 2020 6:27pm [...] Active Start: 01-08-2023 [facility] Phentermine HCl 37.5 MG 1 tablet before breakfast Orally Once a day for 30 days Dec, Active Start: 06-25-2019 End: 07-28-2020 take 1 tablet by mouth once daily Phentermine (Adipex-P) 37.5 mg Tablet Discontinued 37.5 MG PO Daily 0 June 26, 2019 11:58am July 28, 2020 6:27pm Toqlomns-Ywz-Tb-Fa () 1 mg Tablet (8 sources) Start: 12-31-2020 End: 07-04-2021 take 1 tablet by mouth once Qquiymtq-Xmn-Gp-Fa () 1 mg Tablet Discontinued TAB PO December 30, 2020 11:00pm July 04, 2021 9:48am Start: 12-31-2020 End: 07-04-2021 take 1 tablet by mouth once Fmsirzaf-Lde-Qi-F a () 1 mg Tablet Discontinued TAB [...] 9:55am Start: 06-19-2020 take 1 capsule by [facility] twice daily Progesterone Micronized 100 MG Oral Capsule TAKE 1 CAPSULE Twice daily insert capsules vaginally Quantity: 30 Refills: 3 Bayron Mccarty MD Start : 19-Jun-2020 Active sennosides, detention 8.6 mg oral tablet (1 source) take 4 tablets by [facility] every twenty-four hours Senna 8.6 MG [...] Translations: [Pain in unspecified shoulder] Onset: 08-20-2023 4 Episodic Other nutritional; endocrine; and metabolic disorders [...] [37 weeks gestation of ] 05-17-2024 Episodic Residual codes; unclassified (1 source) Gestation period, 38 weeks; Translations: [38 weeks gestation of ] 05-26-2024 Episodic Sprains and strains (8 sources) Low [...] Name Value Interpretation Reference Range Facility ALL CBC WITH AUTO DIFFon BASOPHILS ABSOLUTE AUTO 0 [facility] Basophils/100 WBC (Bld) 0.3 % 0.2 - 2.0 % [facility] Eosinophils/100 WBC (Bld) 1.8 % 0.9 - 7.0 % [facility] Erythrocyte distribution width (RBC) [Ratio] 13 % 11.0 - 15.0 % [facility] Hematocrit (Bld) [Volume fraction] 36.5 % 36.0 - 48.0 % [facility] Hemoglobin (Bld) [Mass/Vol] 12.4 g/dL 12.0 - 16.0 g/dL [facility] IMMATURE GRANULOCYTES ABS AUTO 0.03 [facility] Immature granulocytes/100 WBC (Bld) 0.4 % 0.0 - 0.5 % [facility] Interpretation and review of laboratory results Abnormal [facility] LYMPHOCYTES ABSOLUTE AUTO 2.2 [facility] Lymphocytes/100 WBC (Bld) 31.4 % 20.5 - 60.0 % [facility] MCH (RBC) [Entitic mass] 30 pg 26.7 - 34.0 pg [facility] MCHC (RBC) [Mass/Vol] 34 g/dL 29.9 - 35.2 g/dL [facility] MCV (RBC) [Entitic vol] 88.4 fL 81.0 - 99.0 fL [facility] MONOCYTES ABSOLUTE AUTO 0.5 [facility] Monocytes/100 WBC (Bld) 7.5 % 1.7 - 12.0 % [facility] NEUTROPHILS ABSOLUTE AUTO 4.1 [facility] Neutrophils/100 WBC (Bld) 58.6 % 43.0 - 75.0 % [facility] Platelet mean volume (Bld) [Entitic vol] 9.6 fL 9.5 - 13.5 fL [facility] TBH EO # 0.1 [facility] TBH PLT 380 [facility] TB RBC 4.13 Low [facility] TB WBC 7 [facility] BOX TESTon 05-22-2024 BOX TEST RESULT SEE SCANNED REPORT [facility] BOX TEST SENT OUT GROUP B STREP [facility] BOX1 [facility] BOX2 05/17/24 [facility] GROUP B STREP [facility] Strep B Culture (PCN Allergi c)on 05-17-2024 Strep B Culture (PCN Allergic) Strep B Only Cult No Group B Beta Streptococcus Isolated 3 Days PERFORMED BY: [facility] [address] [place] [address] PATHOLOGIST HIGH VALUE ASSOCIATE APOLINAR POLANCO M.D. Normal [facility] Comment on above: Performed By: #### C USTB(PCN) #### [facility] [address] Urinalysis macro (dipstick) panel (U)on 05-17-2024 Bilirubin, UA Negative Negative - 4(70) +++ mg/dL [facility] Blood, UA Negative Negative - 50 Bradley/mcL [facility] Clarity, UA Clear [facility] Color, UA Jessica [facility] Glucose, UA Negative Negative - 1999(110) ++++ mg/dL [facility] Interpretation and review of laboratory results Abnormal [facility] Ketones, UA Negative Negative - 160(16) ++++ mg/dL [facility] Leukocytes, UA Positive Negative - 500+++ Gabby/mcL [facility] Comment on above: small Nitrite, UA Negative Negative - Positive [facility] pH, UA 6.5 5 - 9 [facility] Protein, UA Positive Negative - 2000(20) ++++ mg/dL [facility] Comment on above: 30 Spec Grav, UA 1.03 1 - 1.03 [facility] Urobilinogen, UA 0.2 0.2 - 12 mg/dL [facility] ALL THYROID STIM HORMONEon 1 07-04-2023 TSH Qn 2.422 m[IU]/L [facility] Urinalysis macro (dipstick) panel (U)on 05-03-2024 Bilirubin, UA Negative Negative - 4(70) +++ mg/dL [facility] Blood, UA Negative Negative - 50 Bradley/mcL [facility] Clarity, UA Clear [facility] Color, UA Yellow [facility] Glucose, UA Negative Negative - 1999(110) ++++ mg/dL [facility] Interpretation and review of laboratory results Abnormal [facility] Ketones, UA Negative Negative - 160(16) ++++ mg/dL [facility] Leukocytes, UA Positive Negative - 500+++ Gabby/mcL [facility] Comment on above: small Nitrite, UA Negative Negative - Positive [facility] pH, UA 6 5 - 9 [facility] Protein, UA Negative Negative - 1999(20) ++++ mg/dL [facility] Spec Grav, UA 1.03 1 - 1.03 [facility] Urobilinogen, UA 0.2 0.2 - 12 mg/dL [facility] Urinalysis macro (dipstick) panel (U)on 04-22-2024 Bilirubin, UA Negative Negative - 4(70) +++ mg/dL [facility] Blood, UA Negative Negative - 50 Bradley/mcL [facility] Clarity, UA Clear [facility] Color, UA Yellow [facility] Glucose, UA Negative Negative - 1999(110) ++++ mg/dL [facility] Interpretation and review of laboratory results Abnormal [facility] Ketones, UA Negative Negative - 160(16) ++++ mg/dL [facility] Leukocytes, UA Trace Negative - 500+++ Gabby/mcL [facility] Nitrite, UA Negative Negative - Positive [facility] pH, UA 6 5 - 9 [facility] Protein, UA Positive Negative - 1999(20) ++++ mg/dL [facility] Comment on above: 30 Spec Grav, UA 1.025 1 - 1.03 [facility] Urobilinogen, UA 1.0 0.2 - 12 mg/dL [facility] Urinalysis macro (dipstick) panel (U)on 04-06-2024 Bilirubin, UA Negative Negative - 4(70) +++ mg/dL [facility] Blood, UA Negative Negative - 50 Bradley/mcL [facility] Clarity, UA Clear [facility] Color, UA Yellow [facility] Glucose, UA Negative Negative - 1999(110) ++++ mg/dL [facility] Interpretation and review of laboratory results Abnormal [facility] Ketones, UA Negative Negative - 160(16) ++++ mg/dL [facility] Leukocytes, UA Positive Negative - 500+++ Gabby/mcL [facility] Comment on above: small Nitrite, UA Negative Negative - Positive [facility] pH, UA 7 5 - 9 [facility] Protein, UA Negative Negative - 1999(20) ++++ mg/dL [facility] Spec Grav, UA 1.02 1 - 1.03 [facility] Urobilinogen, UA 0.2 0.2 - 12 mg/dL [facility] Urinalysis macro (dipstick) panel (U)on 03-22-2024 Bilirubin, UA Positive Negative - 4(70) +++ mg/dL [facility] Blood, UA Negative Negative - 50 Bradley/mcL [facility] Clarity, UA Clear [facility] Color, UA Yellow [facility] Glucose, UA Negative Negative - 1999(110) ++++ mg/dL [facility] Interpretation and review of laboratory results Normal [facility] Ketones, UA Positive Negative - 160(16) ++++ mg/dL [facility] Leukocytes, UA Positive Negative - 500+++ Gabby/mcL [facility] Nitrite, UA Negative Negative - Positive [facility] pH, UA 7 5 - 9 [facility] Protein, UA Positive Negative - 1999(20) ++++ mg/dL [facility] Spec Grav, UA 1.025 1 - 1.03 [facility] Urobilinogen, UA 1.0 0.2 - 12 mg/dL [facility] ALL CBC WITH AUTO DIFFon BASOPHILS ABSOLUTE AUTO 0 [facility] Basophils/100 WBC (Bld) 0.5 % 0.2 - 2.0 % [facility] Eosinophils/100 WBC (Bld) 2.4 % 0.9 - 7.0 % [facility] Erythrocyte distribution width (RBC) [Ratio] 13.2 % 11.0 - 15.0 % [facility] Hematocrit (Bld) [Volume fraction] 33.2 % Low 36.0 - 48.0 % [facility] Hemoglobin (Bld) [Mass/Vol] 11.1 g/dL Low 12.0 - 16.0 g/dL [facility] IMMATURE GRANULOCYTES ABS AUTO 0.02 [facility] Immature granulocytes/100 WBC (Bld) 0.3 % 0.0 - 0.5 % [facility] Interpretation and review of laboratory results Abnormal [facility] LYMPHOCYTES ABSOLUTE AUTO 2.1 [facility] Lymphocytes/100 WBC (Bld) 32.5 % 20.5 - 60.0 % [facility] MCH (RBC) [Entitic mass] 30.5 pg 26.7 - 34.0 pg [facility] MCHC (RBC) [Mass/Vol] 33.4 g/dL 29.9 - 35.2 g/dL [facility] MCV (RBC) [Entitic vol] 91.2 fL 81.0 - 99.0 fL [facility] MONOCYTES ABSOLUTE AUTO 0.3 [facility] Monocytes/100 WBC (Bld) 4.6 % 1.7 - 12.0 % [facility] NEUTROPHILS ABSOLUTE AUTO 3.9 [facility] Neutrophils/100 WBC (Bld) 59.7 % 43.0 - 75.0 % [facility] Platelet mean volume (Bld) [Entitic vol] 9.3 fL Low 9.5 - 13.5 fL [facility] TBH EO # 0.2 [facility] TB PLT 342 [facility] TB RBC 3.64 Low [facility] WBC 6.6 [facility] BioFire Not Detectedon 03-05 BioFire Not Detected Not detected Normal Not Detecte [facility] Comment on above: Result Comment: This is a duplicate RP2.1 COVID (PCR) result to be used for statistical tracking purpose only. PERFORMED BY: [place] [address] PATHOLOGIST HIGH VALUE ASSOCIATE LION STANLEY M.D. Performed By: #### C BC, CMP, HCGQNT #### [address] COVID-19 Detected/Not Detect edOrdered By: Devika De La Garza on 03-05-2024 SARS-CoV-2 (COVID-19) RNA YANET+non-probe Ql (Nph) Not detected Not Detecte [facility] Comment on above: This is a duplicate RP2.1 COVID (PCR) result to be used for statistical tracking purpose only. ECG 12 lead ECGon 03-05-2024 ECG 12 lead ECG [facility] Main [place] [address] [place] [address] Electrocardiograph Report Signed Patient: Jaleesa Arrieta MR#: [id number] [birth year] : 1990 Acct:[id number] Age/Sex: 33 / F ADM Date: 03/05/24 Loc: ER Room: Type: [facility] ER Attending Dr: Ordering Provider: Devika [...] Confirmed by DEVIKA DE LA GARZA DO ([id number]) on 03/06/2024 1:44:25 AM Referred By: Electronically Signed By: DEVIKA DE LA GARZA DO Transcribed By: MUS Signed By Devika De La Garza DO 03/06 0144 Normal [facility] Quick Strepon 03-05-2024 Quick Strep Streptococcus pyogen es Ag [Presence] in Throat by Rapid immunoassay Negative for Group A Strep Antigen Note 1 NOTE 2 Results are those of a screening test. NOTE 3 If clinically indicated please order a culture. NOTE 4 NOTE 5 Reference range = Negative PERFORMED BY: [place] [address] PATHOLOGIST HIGH VALUE ASSOCIATE LION STANLEY M.D. Normal [facility] Comment on above: Performed By: #### Q S, RESP PANEL UPP., BIOFIRECOVNOTDE #### [address] Respiratory (Upper) Panel, P CRon 03-05-2024 [...] A H3 Blank Space ------ PERFORMED BY: [place] [address] PATHOLOGIST HIGH VALUE ASSOCIATE LION STANLEY M.D. Normal [facility] Comment on above: Performed By: #### Q S, RESP PANEL UPP., BIOFIRECOVNOTDE #### [address] Respiratory pathogens DNA an d RNA panel - Nasopharynx by YANET with non-probe detectionOrdered By: Devika De La Garza on 03-05-2024 Respiratory pathogens DNA and RNA panel YANET+non-probe (Nph) Respiratory pathogens DNA and RNA panel - Nasopharynx by YANET with non-probe detection [facility] Respiratory pathogens DNA and RNA panel YANET+non-probe (Nph) [facility] Streptococcus pyogenes antig en detectionOrdered By: Devika De La Garza on 03-05-2024 S. pyogenes Ag Ql (Unsp spec) Streptococcus pyogenes antigen detection [facility] S. pyogenes Ag Ql (Unsp spec) [facility] XR chest 1V portableon 03-05 XR chest 1V portable [facility] Main [address] [address] XRay Report Signed Patient: Jaleesa Arrieta MR#: [id number] [birth year] : 1990 Acct:[id number] Age/Sex: 33 / F ADM Date: 03/05/24 Loc: ER Room: Type: [facility] ER Attending Dr: Copies to: Devika [...] Priscilla Cunningham M.D.03/05/2024 9:34 PM Dictation Location: [place] [address] Transcribed By: [facility] 03/05/242133 Dictated By: Priscilla Cunningham MD 03/05/242130 Signed By: 03/05/242133 Normal [facility] Quick Strepon 02-26-2024 Quick Strep Streptococcus pyogen es Ag [Presence] in Throat by Rapid immunoassay Negative for Group A Strep Antigen Note 1 NOTE 2 Results are those of a screening test. NOTE 3 If clinically indicated please order a culture. NOTE 4 NOTE 5 Reference range = Negative PERFORMED BY: [address] [address] PATHOLOGIST HIGH VALUE ASSOCIATE LION Goldberg [facility] Comment on above: Performed By: #### Q S #### [address] Streptococcus pyogenes antig en detectionOrdered By: Ck To on 02-26-2024 S. pyogenes Ag Ql (Unsp spec) Streptococcus pyogenes antigen detection [facility] S. pyogenes Ag Ql (Unsp spec) [facility] Urinalysis macro (dipstick) panel (U)on 02-23-2024 Bilirubin, UA Negative Negative - 4(70) +++ mg/dL [facility] Blood, UA Negative Negative - 50 Bradley/mcL [facility] Clarity, UA Clear [facility] Color, UA Yellow [facility] Glucose, UA Negative Negative - 1999(110) ++++ mg/dL [facility] Interpretation and review of laboratory results Abnormal [facility] Ketones, UA Negative Negative - 160(16) ++++ mg/dL [facility] Leukocytes, UA Positive Negative - 500+++ Gabby/mcL [facility] Comment on above: small Nitrite, UA Negative Negative - Positive [facility] pH, UA 7 5 - 9 [facility] Protein, UA Negative Negative - 1999(20) ++++ mg/dL [facility] Spec Grav, UA 1.02 1 - 1.03 [facility] Urobilinogen, UA 0.2 0.2 - 12 mg/dL [facility] ALL THYROID STIM HORMONEon 0 01-26-2024 TSH Qn 2.645 m[IU]/L [facility] Urinalysis macro (dipstick) panel (U)on 01-20-2024 Bilirubin, UA Negative Negative - 4(70) +++ mg/dL [facility] Blood, UA Negative Negative - 50 Bradley/mcL [facility] Clarity, UA Clear [facility] Color, UA Yellow [facility] Glucose, UA Negative Negative - 2000(110) ++++ mg/dL [facility] Interpretation and review of laboratory results Abnormal [facility] Ketones, UA Negative Negative - 160(16) ++++ mg/dL [facility] Leukocytes, UA Trace Negative - 500+++ Gabby/mcL [facility] Nitrite, UA Negative Negative - Positive [facility] pH, UA 6.5 5 - 9 [facility] Protein, UA Negative Negative - 2000(20) ++++ mg/dL [facility] Spec Grav, UA 1.020 1 - 1.03 [facility] Urobilinogen, UA 0.2 0.2 - 12 mg/dL [facility] Alanine aminotransferase [En zymatic activity/volume] in Serum or PlasmaOrdered By: Marychuy Kyle on 10-06-2023 ALT [Catalytic activity/Vol] 13 U/L Normal 7-52 [facility] Comment on above: Performed By: #### C BC, CMP, HCGQNT #### [facility] [address] [place] [address] [place] Albumin [Mass/volume] in Ser um or Plasma by Bromocresol green (BCG) dye binding methoOrdered By: Marychuy Kyle on 10-06-2023 Albumin BCG dye [Mass/Vol] 3.8 g/dL 3.5-5.7 [facility] Alkaline phosphatase [Enzyma tic activity/volume] in Serum or PlasmaOrdered By: Marychuy Kyle on 10-06-2023 ALP [Catalytic activity/Vol] 61 U/L Normal 34-104 [facility] Comment on above: Performed By: #### C BC, CMP, HCGQNT #### [address] Aspartate aminotransferase [ Enzymatic activity/volume] in Serum or PlasmaOrdered By: Marychuy Kyle on 10-06-2023 AST [Catalytic activity/Vol] 13 U/L Normal 13-39 [facility] Comment on above: Performed By: #### C BC, CMP, HCGQNT #### [facility] [address] [place] [address] [place] Automated basophil %Ordered By: Marychuy Kyle on 10-06-2023 Basophils/100 WBC (Bld) 0.6 % Normal . [facility] Comment on above: Performed By: #### C BC, CMP, HCGQNT #### [facility] [address] [place] [address] [place] Automated basophil countOrde red By: Marychuy Kyle on 10-06-2023 Basophils (Bld) [#/Vol] 0.0 10*3/uL Normal 0.0-0.2 [facility] Comment on above: Result Comment: PERF ORMED BY: [place] [address] PATHOLOGIST HIGH VALUE ASSOCIATE LION STANLEY M.D. Performed By: #### C BC, CMP, HCGQNT #### [address] Automated blood monocyte cou ntOrdered By: Marychuy Bullimore on 10-06-2023 Monocytes (Bld) [#/Vol] 0.5 10*3/uL Normal 0.0-0.8 [facility] Comment on above: Performed By: #### C BC, CMP, HCGQNT #### [address] Automated eosinophil %Ordere d By: Marychuy Bullimore on 10-06-2023 Eosinophils/100 WBC (Bld) 0.7 % Normal . [facility] Comment on above: Performed By: #### C BC, CMP, HCGQNT #### [address] Automated eosinophil countOr dered By: Marychuy Bullimore on 10-06-2023 Eosinophils (Bld) [#/Vol] 0.1 10*3/uL Normal 0.0-0.45 [facility] Comment on above: Performed By: #### C BC, CMP, HCGQNT #### [address] Automated epithelial cells c ount in urine sediment (number/area)Ordered By: Marychuy Bullimore on 10-06-2023 Epithelial cells Auto (Urine sed) [#/Area] 3-4 [HPF] 0-2 [facility] Automated monocyte %Ordered By: Marychuy Bullimore on 10-06-2023 Monocytes/100 WBC (Bld) 6.7 % Normal . [facility] Comment on above: Performed By: #### C BC, CMP, HCGQNT #### [address] [place] [address] [place] Automated neutrophil %Ordere d By: Marychuy Bullimore on 10-06-2023 Neutrophils/100 WBC (Bld) 54.4 % Normal . [facility] Comment on above: Performed By: #### C BC, CMP, HCGQNT #### [facility] [address] Bacteria [Presence] in Urine by AutomatedOrdered By: Maryhcuy Bullimore on 10-06-2023 Bacteria Auto Ql (U) None seen [HPF] None Seen [facility] Bilirubin Test strip Ql (U)O rdered By: Marychuy Bullimore on 10-06-2023 Bilirubin Ql (U) Negative Negative [facility] Bilirubin.total [Mass/volume ] in Serum or PlasmaOrdered By: Marychuy Bullimore on 10-06-2023 Bilirubin [Mass/Vol] 0.2 mg/dL Low 0.3-1.0 [facility] Comment on above: Performed By: #### C BC, CMP, HCGQNT #### [facility] [address] [place] [address] [place] Calcium [Mass/volume] in Ser um or PlasmaOrdered By: Marychuy Bullimore on 10-06-2023 Calcium [Mass/Vol] 9.4 mg/dL Normal 8.6-10.3 [facility] Comment on above: Performed By: #### C BC, CMP, HCGQNT #### [facility] [address] [place] [address] [place] Carbon dioxide, total [Moles /volume] in Serum or PlasmaOrdered By: Marychuy Bullimore on 10-06-2023 CO2 [Moles/Vol] 25.5 mmol/L Normal 21.0-31.[address] [facility] Comment on above: Performed By: #### C BC, CMP, HCGQNT #### [facility] [address] [place] [address] [place] Chloride [Moles/volume] in S sondra or PlasmaOrdered By: Marychuy Bullimore on 10-06-2023 Chloride [Moles/Vol] 105 mmol/L Normal 98-107 [facility] Comment on above: Performed By: #### C BC, CMP, HCGQNT #### [facility] [address] Choriogonadotropin.beta subu nit [Units/volume] in Serum or PlasmaOrdered By: Marychuy Kyle on 10-06-2023 HCG.beta subunit Qn 2799.00 m[IU]/mL [facility] Comment on above: Approximate Approxim ate hCG Gestational Age Range (mIU/ml) (weeks)0.2-1 5-50 1-2 50-500 2-3 100-5,000 3-4 500-10,000 4-5 1,000-50,000 5-6 10,000-100,000 6-8 15,000-200,000 8-12 10,000-100,000 Color of Urine by AutoOrdere d By: Marychuy Kyle on 10-06-2023 Color (U) Yellow Normal Yellow [facility] Comment on above: Order Comment: NEED MORE SPECIMEN Name Collection Type:: Clean-Voided Midstream Performed By: #### A DDONUAPLUS #### [address] Complete Blood Count Auto Di ffon 10-06-2023 Mean Corpuscular HGB Conc 34.4 g/dL Normal 32.0-35.0 [facility] Comment on above: Performed By: #### C BC, CMP, HCGQNT #### [facility] [address] [place] [address] [place] Monocytes/100 WBC (Bld) 17.37 % Normal 0.00-20.00 [facility] Comment on above: Performed By: #### C BC, CMP, HCGQNT #### [facility] [address] [place] [address] [place] NRBC% 0.2 /100{WBC} Normal 0-0.5 [facility] Comment on above: Performed By: #### C BC, CMP, HCGQNT #### [facility] [address] Comprehensive Metabolic Pane panchito 05-27-2024 Albumin [Mass/Vol] 3.8 g/dL Normal 3.5-5.7 [facility] Comment on above: Performed By: #### C BC, CMP, HCGQNT #### [place] [address] [place] Creatinine Clr Calc Pharmacy 180.48 Normal [facility] Comment on above: Performed By: #### C BC, CMP, HCGQNT #### [place] [address] [place] GFR/1.73 sq M.predicted MDRD (S/P/Bld) [Vol rate/Area] mL/min/{1.73_m2} Normal [facility] Comment on above: Performed By: #### C BC, CMP, HCGQNT #### [address] Creatinine [Mass/volume] in Serum or PlasmaOrdered By: Marychuy Kyle on 10-06-2023 Creatinine [Mass/Vol] 0.63 mg/dL Normal 0.60-1.20 [facility] Comment on above: Performed By: #### C BC, CMP, HCGQNT #### [place] [address] [place] Dipstick and Microscopicon 0 10-06-2023 Appearance (U) Clear Normal Clear [facility] Comment on above: Order Comment: NEED MORE SPECIMEN Name Collection Type:: Clean-Voided Midstream Performed By: #### A DDONUAPLUS #### [place] [address] [place] Bacteria,Urine None Seen Normal None Seen [facility] Comment on above: Order Comment: NEED MORE SPECIMEN Name Collection Type:: Clean-Voided Midstream Performed By: #### A DDONUAPLUS #### [place] [address] [place] Bilirubin,Urine Negative Normal Negative [facility] Comment on above: Order Comment: NEED MORE SPECIMEN Name Collection Type:: Clean-Voided Midstream Performed By: #### A DDONUAPLUS #### [place] [id number] [place] Glucose Ql (U) Normal Normal Normal [facility] Comment on above: Order Comment: NEED MORE SPECIMEN Name Collection Type:: Clean-Voided Midstream Performed By: #### A DDONUAPLUS #### [place] [id number] [place] Hyaline Casts,Urine 0-8 Normal 0-8 [facility] Comment on above: Order Comment: NEED MORE SPECIMEN Name Collection Type:: Clean-Voided Midstream Result Comment: PERF ORMED BY: [place] [address] PATHOLOGIST H[employer] VALUE ASSOCIATE LION STANLEY M.D. Performed By: #### A DDONUAPLUS #### [address] Ketones Ql (U) Negative Normal Negative [facility] Comment on above: Order Comment: NEED MORE SPECIMEN Name Collection Type:: Clean-Voided Midstream Performed By: #### A DDONUAPLUS #### [place] [address] [place] Leukocyte esterase Test strip Ql (U) 1+ High Negative [facility] Comment on above: Order Comment: NEED MORE SPECIMEN Name Collection Type:: Clean-Voided Midstream Performed By: #### A DDONUAPLUS #### [place] [address] [place] Nitrite,Urine Negative Normal Negative [facility] Comment on above: Order Comment: NEED MORE SPECIMEN Name Collection Type:: Clean-Voided Midstream Performed By: #### A DDONUAPLUS #### [place] [id number] [place] Occult Blood,Urine Negative Normal Negative [facility] Comment on above: Order Comment: NEED MORE SPECIMEN Name Collection Type:: Clean-Voided Midstream Result Comment: PERF ORMED BY: [place] [id number] PATHOLOGIST H[employer] VALUE ASSOCIATE LION STANLEY M.D. Performed By: #### A DDONUAPLUS #### [address] Protein,Urine Negative Normal Negative [facility] Comment on above: Order Comment: NEED MORE SPECIMEN Name Collection Type:: Clean-Voided Midstream Performed By: #### A DDONUAPLUS #### [address] RBC LM.HPF (Urine sed) [#/Area] 0 /[HPF] Normal 0-4 [facility] Comment on above: Order Comment: NEED MORE SPECIMEN Name Collection Type:: Clean-Voided Midstream Performed By: #### A DDONUAPLUS #### [address] Specificy [place],Urine 1.017 Normal 1.001-1.030 [facility] Comment on above: Order Comment: NEED MORE SPECIMEN Name Collection Type:: Clean-Voided Midstream Performed By: #### A DDONUAPLUS #### [address] Squamous Epithelial Cell,Urine 3-4 High 0-2 [facility] Comment on above: Order Comment: NEED MORE SPECIMEN Name Collection Type:: Clean-Voided Midstream Performed By: #### A DDONUAPLUS #### [address] Urobilinogen,Urine Normal Normal Normal [facility] Comment on above: Order Comment: NEED MORE SPECIMEN Name Collection Type:: Clean-Voided Midstream Performed By: #### A DDONUAPLUS #### [place] [address] [place] WBC,Urine 3-4 Normal 0-4 [facility] Comment on above: Order Comment: NEED MORE SPECIMEN Name Collection Type:: Clean-Voided Midstream Performed By: #### A DDONUAPLUS #### [place] [address] [place] Erythrocyte distribution wid th [Ratio] by Automated countOrdered By: Marychuy Kyle on 10-06-2023 Erythrocyte distribution width (RBC) [Ratio] 13.4 % Normal 11.9-15.3 [facility] Comment on above: Performed By: #### C BC, CMP, HCGQNT #### [facility] [address] Erythrocytes [#/area] in Uri ne sediment by Automated countOrdered By: Marychuy Kyle on 10-06-2023 RBC Auto (Urine sed) [#/Area] 0-1 [HPF] 0-4 [facility] Erythrocytes [#/volume] in B lood by Automated countOrdered By: Marychuy Kyle on 10-06-2023 RBC (Bld) [#/Vol] 4.08 10*6/uL Normal 3.60-5.00 [facility] Comment on above: Performed By: #### C ADRIANA, JOSELYN, HCGQNT #### [address] Glucose [Mass/volume] in Ser um or PlasmaOrdered By: Marychuy Kyle on 10-06-2023 Glucose [Mass/Vol] 100 mg/dL Normal 70-100 [facility] Comment on above: ADA recommended refe rence rangeRandom Glucose Reference Range is dependent on time and content of last meal. Glucose of more than 200 mg/dL in a nonstressed, ambulatory subject supports the diagnosis of Diabetes Mellitus. Result Comment: [place] om Glucose Reference Range is dependent on time and content of last meal. Glucose of more than 200 mg/dL in a nonstressed, ambulatory subject supports the diagnosis of Diabetes Mellitus. ADA recommended reference range Performed By: #### C BC, CMP, HCGQNT #### [facility] [address] [place] [id number] [facility] HCG,Quantitativeon HCG,Quantitative 2799.00 m[iU]/mL Normal [facility] Comment on above: Result Comment: Appr oximate Approximate hCG Gestational Age Range (mIU/ml) (weeks) 0.2-1 5-50 1-2 50-500 2-3 100-5,000 3-4 500-10,000 4-5 1,000-50,000 5-6 10,000-100,000 6-8 15,000-200,000 8-12 10,000-100,000 PERFORMED BY: [place] [address] PATHOLOGIST H[employer] VALUE ASSOCIATE LION STANLEY M.D. Performed By: #### C BC, CMP, HCGQNT #### [address] Hematocrit [Volume Fraction] of Blood by Automated countOrdered By: Marychuy Kyle on 10-06-2023 Hematocrit (Bld) [Volume fraction] 36.7 % Normal 34.0-46.4 [facility] Comment on above: Performed By: #### C BC, CMP, HCGQNT #### [address] Hemoglobin [Mass/volume] in BloodOrdered By: Marychuy Kyle on 10-06-2023 Hemoglobin (Bld) [Mass/Vol] 12.6 g/dL Normal 11.8-15.4 [facility] Comment on above: Performed By: #### C BC, CMP, HCGQNT #### [address] Ketones Auto test strip (U) [Mass/Vol]Ordered By: Marychuy Kyle on 10-06-2023 Ketones (U) [Mass/Vol] Negative Negative [facility] Laboratory - UrinalysisOrder ed By: Marychuy Kyle on 10-06-2023 Hyaline casts LM Ql (Urine sed) 0-8 [LPF] 0-8 [facility] Leukocytes [#/area] in Urine sediment by Automated countOrdered By: Marychuy Wangore on 10-06-2023 WBC Auto (Urine sed) [#/Area] 3-4 [HPF] 0-4 [facility] Leukocytes [#/volume] correc inocencia for nucleated erythrocytes in Blood by Automated counOrdered By: Marychuy Wangore on 10-06-2023 WBC corrected for nucl RBC Auto (Bld) [#/Vol] 7.4 10*3/uL 3.8-11.6 [facility] Leukocytes [#/volume] in Blo od by Automated countOrdered By: Marychuy Wangore on 10-06-2023 WBC (Bld) [#/Vol] 7.4 10*3/uL Normal 3.8-11.6 [facility] Comment on above: Performed By: #### C BC, CMP, HCGQNT #### [address] Lymphocytes [#/volume] in Bl ood by Automated countOrdered By: Marychuy Bullimore on 10-06-2023 Lymphocytes (Bld) [#/Vol] 2.8 10*3/uL Normal 1.00-4.8 [facility] Comment on above: Performed By: #### C BC, CMP, HCGQNT #### [address] Lymphocytes/100 leukocytes i n Blood by Automated countOrdered By: Marychuy Phaniimore on 10-06-2023 Lymphocytes/100 WBC (Bld) 37.6 % Normal . [facility] Comment on above: Performed By: #### C BC, CMP, HCGQNT #### [address] MCH [Entitic mass] by Automa inocencia countOrdered By: Marychuy Kyle on 10-06-2023 MCH (RBC) [Entitic mass] 31.0 pg Normal 24.7-34.3 [facility] Comment on above: Performed By: #### C BC, CMP, HCGQNT #### [address] MCHC Auto (RBC) [Mass/Vol]Or dered By: Marychuy Bullimore on 10-06-2023 MCHC (RBC) [Mass/Vol] 34.4 g/dL 32.0-35.0 [facility] MCV [Entitic volume] by Auto mated countOrdered By: Marychuy Phaniimore on 10-06-2023 MCV (RBC) [Entitic vol] 90.1 fL Normal 80-100 [facility] Comment on above: Performed By: #### C BC, CMP, HCGQNT #### [place] [address] [place] Monocyte distribution width [Entitic volume] in Blood by AutomatedOrdered By: Marychuy Jeronimoimore on 10-06-2023 Monocyte distribution width Auto (Bld) [Entitic vol] 17.37 % 0.00-20.00 [facility] Neutrophils [#/volume] in Bl ood by Automated countOrdered By: Marychuy Jeronimoimore on 10-06-2023 Neutrophils (Bld) [#/Vol] 4.0 10*3/uL Normal 1.8-7.7 [facility] Comment on above: Performed By: #### C BC, CMP, HCGQNT #### [facility] [address] Nitrite Test strip Ql (U)Ord ered By: Marychuy Kyle on 10-06-2023 Nitrite Ql (U) Negative Negative [facility] No Panel InformationOrdered By: Marychuy Kyle on 10-06-2023 Estimated GFR (CKD-EPI) > 60.0 mL/Min [facility]acy Creatinine Clearance (Chem 180.48 [facility] Nucleated erythrocytes [Pres ence] in Blood by Automated countOrdered By: Marychuy Kyle on 10-06-2023 Nucleated RBC Auto Ql (Bld) 0.2 /100{WBC} 0-0.5 [facility] Platelet mean volume [Entiti c volume] in Blood by Automated countOrdered By: Marychuy Kyle on 10-06-2023 Platelet mean volume (Bld) [Entitic vol] 7.5 fL Normal 6.3-10.7 [facility] Comment on above: Performed By: #### C BC, CMP, HCGQNT #### [facility] [address] [place] [address] [place] Platelets [#/volume] in Bloo d by Automated countOrdered By: Marychuy Kyle on 10-06-2023 Platelets (Bld) [#/Vol] 367 10*3/uL Normal 150-450 [facility] Comment on above: Performed By: #### C BC, CMP, HCGQNT #### [facility] [address] [place] [address] [place] Potassium [Moles/volume] in Serum or PlasmaOrdered By: Marychuy Jeronimoimdianne on 10-06-2023 Potassium [Moles/Vol] 4.1 mmol/L Normal 3.5-5.1 [facility] Comment on above: Performed By: #### C BC, CMP, HCGQNT #### [address] Protein Auto test strip (U) [Mass/Vol]Ordered By: Marychuy Bullimore on 10-06-2023 Protein (U) [Mass/Vol] Negative Negative [facility] Protein [Mass/volume] in Ser um or PlasmaOrdered By: Marychuy Bullimore on 10-06-2023 Protein [Mass/Vol] 7.4 g/dL Normal 6.4-8.9 [facility] Comment on above: Performed By: #### C BC, CMP, HCGQNT #### [address] Serum globulin measurement b y calculation (mass/volume)Ordered By: Marychuy Bullimore on 10-06-2023 Globulin (S) [Mass/Vol] 3.6 g/dL Normal [facility] Comment on above: Performed By: #### C BC, CMP, HCGQNT #### [address] Serum or plasma albumin/glob ulin mass ratioOrdered By: Marychuy Bullimore on 10-06-2023 Albumin/Globulin [Mass ratio] 1.1 {ratio} [facility] Comment on above: Performed By: #### C BC, CMP, HCGQNT #### [address] Serum or plasma anion gap de terminationOrdered By: Marychuy Bullimore on 10-06-2023 Anion gap [Moles/Vol] 12.6 mmol/L Normal 6.0-15.0 [facility] Comment on above: Performed By: #### C BC, CMP, HCGQNT #### [address] Sodium [Moles/volume] in Ser um or PlasmaOrdered By: Marychuy Bullimore on 10-06-2023 Sodium [Moles/Vol] 139 mmol/L Normal 136-145 [facility] Comment on above: Performed By: #### C JOSELYN WRIGHT, HCGQNT #### [facility] [address] [place] [address] Specific gravity Auto test s trip (U) [Rel density]Ordered By: Marychuy Kyle on 10-06-2023 Specific gravity (U) [Rel density] 1.017 1.001-1.030 [facility] Urea nitrogen [Mass/volume] in Serum or PlasmaOrdered By: Marychuy Kyle on 10-06-2023 Urea nitrogen [Mass/Vol] 7 mg/dL Normal 7-25 [facility] Comment on above: Performed By: #### C JOSELYN WRIGHT, HCGQNT #### [address] Urine clarity by refractomet ry automatedOrdered By: Marychuy Kyle on 10-06-2023 Clarity Refractometry automated (U) Clear Clear [facility] Urine glucose measurement by automated test strip (mass/volume)Ordered By: Marychuy Kyle on 10-06-2023 Glucose Auto test strip (U) [Mass/Vol] Normal mg/dL Normal [facility] Urine hemoglobin detection b y automated test stripOrdered By: Marychuy Kyle on 10-06-2023 Hemoglobin Auto test strip Ql (U) Negative Negative [facility] Urine leukocyte esterase det ection by automated test stripOrdered By: Marychuy Kyle on 10-06-2023 Leukocyte esterase Auto test strip Ql (U) 1+ Negative [facility] Urine pH measurement by auto mated test stripOrdered By: Marychuy Kyle on 10-06-2023 pH (U) 7.0 [pH] Normal 5.0-9.0 [facility] Comment on above: Order Comment: NEED MORE SPECIMEN Name Collection Type:: Clean-Voided Midstream Performed By: #### A DDONUAPLUS #### [address] Urobilinogen Auto test strip (U) [Mass/Vol]Ordered By: Marychuy Kyle on 10-06-2023 Urobilinogen (U) [Mass/Vol] Normal mg/dL Normal [facility] Basia 09-11-2023 LIZ Telephone (MOGEN) -------- JALEESA ARRIETA ([id number]) 1990 F Date Time Provider Department 09/11/23 [...] Status:Closed by TONYA SENIOR on 09/23/23 Normal [facility] NICOTINE AND METAB, URon URIN ANABASINE QUANT <5 Normal [facility] Comment on above: Order Comment: Speci men Type: URINE SPECIMEN Ordering Facility: [facility] Address: [address] [place] [address] Performed By: #### U NICOT #### [facility] CLIA [id number] [address] [place] [address] URIN COTININE QUANT <15 Normal [facility] Comment on above: Order Comment: Speci men Type: URINE SPECIMEN Ordering Facility: [facility] Address: [address] [place] [address] Performed By: #### U NICOT #### [facility] CLIA [id number] [address] [place] [address] URIN NICOTINE QUANT <15 Normal [facility] Comment on above: Order Comment: Speci men Type: URINE SPECIMEN Ordering Facility: [facility] Address: [address] [place] [address] Result Comment: INTE RPRETIVE INFORMATION: Nicotine and Metabolites, Urine, Quantitative Methodology: Quantitative Liquid Chromatography-Tandem Mass Spectrometry Positive cutoff: Nicotine 15 ng/mL Cotinine 15 ng/mL 7-VP-Dtiaabin 50 ng/mL Anabasine 5 ng/mL For medical [...] developed and its performance characteristics determined by [facility]. It has not been cleared or approved by the [place] Food and Drug Administration. This test was performed in a CLIA certified laboratory and is intended for clinical purposes. Performed By: [facility] [address] [place] [address] House Cleaner: Rex Zuleta MD, PhD CLIA Number: [id number] Performed By: #### U NICOT #### [facility] CLIA [id number] [address] [place] [address] URINE 3 [place] COTININE <50 Normal [facility] Comment on above: Order Comment: Speci men Type: URINE SPECIMEN Ordering Facility: [facility] Address: [address] [place] [address] Performed By: #### U NICOT #### [facility] CLIA [id number] [address] [place] [address] TOXICOLOGY SCREEN, ROUTINE U RINEon 09-08-2023 Amphetamines Confirm (U) [Mass/Vol] Negative Normal Negative [facility] Comment on above: Order Comment: Speci men Type: URINE SPECIMEN Ordering Facility: [facility] Address: [address] [place] [address] Result Comment: Cuto ff threshold at 1000 ng/mL. Performed By: #### U TOX2 #### [facility] CLIA [id number] [address] [place] [address] [place] BARBITURATES, URINE Negative Normal Negative [facility] Comment on above: Order Comment: Speci men Type: URINE SPECIMEN Ordering Facility: [facility] Address: [address] [place] [address] Result Comment: Cuto ff threshold at 200 ng/mL. Performed By: #### U TOX2 #### [facility] CLIA [id number] [address] [place] [address] [place] BENZODIAZEPINES, UR Negative Normal Negative [facility] Comment on above: Order Comment: Speci men Type: URINE SPECIMEN Ordering Facility: [facility] Address: [address] [place] [address] Result Comment: Cuto ff threshold at 200 ng/mL. Performed By: #### U TOX2 #### [facility] CLIA [id number] [address] [place] [address] [place] Cannabinoids Screen Ql (U) Negative Normal Negative [facility] Comment on above: Order Comment: Speci men Type: URINE SPECIMEN Ordering Facility: [facility] Address: [address] [place] [address] Result Comment: Cuto ff threshold at 50 ng/mL. Performed By: #### U TOX2 #### [facility] CLIA [id number] [address] [place] [address] [place] Cocaine Ql (U) Negative Normal Negative [facility] Comment on above: Order Comment: Speci men Type: URINE SPECIMEN Ordering Facility: [facility] Address: [address] [place] [address] Result Comment: Cuto ff threshold at 300 ng/mL. Performed By: #### U TOX2 #### [facility] CLIA [id number] [address] [place] [address] [place] Ethanol (U) [Mass/Vol] <11 Normal <11 [facility] Comment on above: Order Comment: Speci men Type: URINE SPECIMEN Ordering Facility: [facility] Address: [address] [place] [address] Performed By: #### U TOX2 #### [facility] CLIA [id number] [address] [place] [address] [place] Opiates Screen Ql (U) Negative Normal Negative [facility] Comment on above: Order Comment: Speci men Type: URINE SPECIMEN Ordering Facility: [facility] Address: [address] [place] [address] Result Comment: Cuto ff threshold at 300 ng/mL. Performed By: #### U TOX2 #### [facility] CLIA [id number] [address] [place] [address] [place] oxyCODONE cutoff Screen (U) [Mass/Vol] Negative Normal Negative [facility] Comment on above: Order Comment: Speci men Type: URINE SPECIMEN Ordering Facility: [facility] Address: [address] [place] [address] Result Comment: Cuto ff threshold at 100 ng/mL. Performed By: #### U TOX2 #### [facility] CLIA [id number] [address] [place] [address] [place] Phencyclidine Ql (U) Negative Normal Negative [facility] Comment on above: Order Comment: Speci men Type: URINE SPECIMEN Ordering Facility: [facility] Address: [address] [place] [address] Result Comment: Cuto ff threshold at 25 ng/mL. Performed By: #### U TOX2 #### [facility] CLIA [id number] [address] [place] [address] [place] 25([place])D3 [facility] 25-hydroxyvitamin D3 [Mass/Vol] 11.9 ng/mL Low 31.0-80.0 [facility] Comment on above: Order Comment: Speci men Type: BLOOD SPECIMEN [facility] [facility] Address: [address] [place] [address] Performed By: #### 2 276-4, 2132-01, 2283-12 #### [facility] CLIA [id number] [address] [place] [address] [place] CBC W Auto Differential pane l (Bld)on 09-05-2023 Basophils (Bld) [#/Vol] 10*3/uL Normal <0.11 [facility] Comment on above: Order Comment: Speci men Type: BLOOD SPECIMEN [facility]ing Facility: [facility] Address: [address] [place] [address] Performed By: #### 2 276-4, 2132-01, 2283-12 #### [facility] CLIA [id number] [address] [place] [address] [place] Basophils/100 WBC (Bld) 0.3 % Normal [facility] Comment on above: Order Comment: Speci men Type: BLOOD SPECIMEN Ordering Facility: [facility] Address: [address] [place] [address] Performed By: #### 2 276-4, 2132-01, 2283-12 #### [facility] CLIA [id number] [address] [place] [address] [place] Differential cell count method Nom (Bld) Auto Normal [facility] Comment on above: Order Comment: Speci men Type: BLOOD SPECIMEN [facility]ing Facility: [facility] Address: [address] [place] [address] Performed By: #### 2 276-4, 2132-01, 2283-12 #### [facility] CLIA [id number] [address] [place] [address] [place] Eosinophils (Bld) [#/Vol] 0.09 10*3/uL Normal <0.46 [facility] Comment on above: Order Comment: Speci men Type: BLOOD SPECIMEN [facility]ing Facility: [facility] Address: [address] [place] [address] Performed By: #### 2 276-4, 9, 2283-12 #### [facility] CLIA [id number] [address] [place] [address] [place] Eosinophils/100 WBC (Bld) 1.3 % Normal [facility] Comment on above: Order Comment: Speci men Type: BLOOD SPECIMEN [facility]ing Facility: [facility] Address: [address] [place] [address] Performed By: #### 2 276-4, 9, 2283-12 #### [facility] CLIA [id number] [address] [place] [address] [place] Erythrocyte distribution width (RBC) [Ratio] 12.6 % Normal 11.5-15.0 [facility] Comment on above: Order Comment: Speci men Type: BLOOD SPECIMEN [facility]ing Facility: [facility] Address: [address] [place] [address] Performed By: #### 2 276-4, 2132-01, 2283-12 #### [facility] CLIA [id number] [address] [place] [address] [place] Hematocrit (Bld) [Volume fraction] 38.0 % Normal 36.0-46.0 [facility] Comment on above: Order Comment: Speci men Type: BLOOD SPECIMEN [facility]ing Facility: [facility] Address: [address] [place] [address] Performed By: #### 2 276-4, 9, 2283-12 #### [facility] CLIA [id number] [address] [place] [address] [place] Hemoglobin (Bld) [Mass/Vol] 12.8 g/dL Normal 11.5-15.5 [facility] Comment on above: Order Comment: Speci men Type: BLOOD SPECIMEN [facility]ing Facility: [facility] Address: [address] [place] [address] Performed By: #### 2 276-4, 2132-01, 2283-12 #### [facility] CLIA [id number] [address] [place] [address] [place] Immature granulocytes (Bld) [#/Vol] 10*3/uL Normal <0.10 [facility] Comment on above: Order Comment: Speci men Type: BLOOD SPECIMEN [facility]ing Facility: [facility] Address: [address] [place] [address] Performed By: #### 2 276-4, 2132-01, 2283-12 #### [facility] CLIA [id number] [address] [place] [address] [place] Immature granulocytes/100 WBC (Bld) 0.1 % Normal [facility] Comment on above: Order Comment: Speci men Type: BLOOD SPECIMEN [facility]ing Facility: [facility] Address: [address] [place] [address] Performed By: #### 2 276-4, 2132-01, 2283-12 #### [facility] CLIA [id number] [address] [place] [address] [place] Lymphocytes (Bld) [#/Vol] 3.49 10*3/uL Normal 1.00-4.00 [facility] Comment on above: Order Comment: Speci men Type: BLOOD SPECIMEN [facility]ing Facility: [facility] Address: [address] [place] [address] Performed By: #### 2 276-4, 2132-01, 2283-12 #### [facility] CLIA [id number] [address] [place] [address] [place] Lymphocytes/100 WBC (Bld) 48.6 % Normal [facility] Comment on above: Order Comment: Speci men Type: BLOOD SPECIMEN [facility]ing Facility: [facility] Address: [address] [place] [address] Performed By: #### 2 276-4, 2132-01, 2283-12 #### [facility] CLIA [id number] [address] [place] [address] [place] MCH (RBC) [Entitic mass] 30.0 pg Normal 26.0-34.0 [facility] Comment on above: Order Comment: Speci men Type: BLOOD SPECIMEN [facility]ing Facility[facility] Address: [address] [place] [address] Performed By: #### 2 276-4, 2132-01, 2283-12 #### [facility] CLIA [id number] [address] [place] [address] [place] MCHC (RBC) [Mass/Vol] 33.7 g/dL Normal 30.5-36.0 [facility] Comment on above: Order Comment: Speci men Type: BLOOD SPECIMEN [facility]ing Facility: [facility] Address: [address] [place] [address] Performed By: #### 2 276-4, 2132-01, 2283-12 #### [facility] CLIA [id number] [address] [place] [address] [place] MCV (RBC) [Entitic vol] 89.2 fL Normal 80.0-100.0 [facility] Comment on above: Order Comment: Speci men Type: BLOOD SPECIMEN [facility]ing Facility: [facility] Address: [address] [place] [address] Performed By: #### 2 276-4, 2132-01, 2283-12 #### [facility] CLIA [id number] [address] [place] [address] [place] Monocytes (Bld) [#/Vol] 0.48 10*3/uL Normal <0.87 [facility] Comment on above: Order Comment: Speci men Type: BLOOD SPECIMEN Ordering Facility: [facility] Address: [address] [place] [address] Performed By: #### 2 276-4, 2132-01, 2283-12 #### [facility] CLIA [id number] [address] [place], [place] [address] [place] Monocytes/100 WBC (Bld) 6.7 % Normal [facility] Comment on above: Order Comment: Speci men Type: BLOOD SPECIMEN Ordering Facility: [facility] Address: [address] [place] [address] Performed By: #### 2 276-4, 2132-01, 2283-12 #### [facility] CLIA [id number] [address] [place] [address] [place] Neutrophils (Bld) [#/Vol] 3.09 10*3/uL Normal 1.45-7.50 [facility] Comment on above: Order Comment: Speci men Type: BLOOD SPECIMEN [facility]ing Facility: [facility] Address: [address] [place] [address] Performed By: #### 2 276-4, 2132-01, 2283-12 #### [facility] CLIA [id number] [address] [place] [address] [place] Neutrophils/100 WBC (Bld) 43.0 % Normal [facility] Comment on above: Order Comment: Speci men Type: BLOOD SPECIMEN [facility]ing Facility: [facility] Address: [address] [place] [address] Performed By: #### 2 276-4, 2132-01, 2283-12 #### [facility] CLIA [id number] [address] [place] [address] [place] Nucleated RBC (Bld) [#/Vol] 10*3/uL Normal <0.01 [facility] Comment on above: Order Comment: Speci men Type: BLOOD SPECIMEN [facility]ing Facility: [facility] Address: [address] [place] [address] Performed By: #### 2 276-4, 2132-01, 2283-12 #### [facility] CLIA [id number] [address] [place] [address] [place] Nucleated RBC/100 WBC (Bld) [Ratio] 0.0 /100 WBC Normal [facility] Comment on above: Order Comment: Speci men Type: BLOOD SPECIMEN [facility]ing [facility] Address: [address] [place] [address] Performed By: #### 2 276-4, 2132-01, 2283-12 #### [facility] CLIA [id number] [address] [place] [address] [place] Platelet mean volume (Bld) [Entitic vol] 9.2 fL Normal 9.0-12.7 [facility] Comment on above: Order Comment: Speci men Type: BLOOD SPECIMEN [facility]ing Facility: [facility] Address: [address] [place] [address] Performed By: #### 2 276-4, 2132-01, 2283-12 #### [facility] CLIA [id number] [address] [place] [address] [place] Platelets (Bld) [#/Vol] 361 10*3/uL Normal 150-400 [facility] Comment on above: Order Comment: Speci men Type: BLOOD SPECIMEN [facility]ing Facility: [facility] Address: [address] [place] [address] Performed By: #### 2 276-4, 2132-01, 2283-12 #### [facility] CLIA [id number] [address] [place] [address] [place] RBC (Bld) [#/Vol] 4.26 10*6/uL Normal 3.90-5.20 [facility] Comment on above: Order Comment: Speci men Type: BLOOD SPECIMEN [facility] Address: [address] [place] [address] Performed By: #### 2 276-4, 2132-01, 2283-12 #### [facility] CLIA [id number] [address] [place] [address] [place] WBC (Bld) [#/Vol] 7.18 10*3/uL Normal 3.70-11.00 [facility] Comment on above: Order Comment: Speci men Type: BLOOD SPECIMEN [facility]ing Facility: [facility] Address: [address] [place] [address] Performed By: #### 2 276-4, 2132-9, 2284-8 #### [facility] CLIA [id number] [address] [place], [place] [address] [address] [facility] Comprehensive metabolic 2000 panelon 09-05-2023 Albumin [Mass/Vol] 4.0 g/dL Normal 3.9-4.9 [facility] Comment on above: Order Comment: Speci men Type: BLOOD SPECIMEN [facility] Address: [address] [place] [address] Performed By: #### 2 4323-8 #### [facility] CLIA [id number] [address] [place] [address] ALP [Catalytic activity/Vol] 91 U/L Normal 34-123 [facility] Comment on above: Order Comment: Speci men Type: BLOOD SPECIMEN [facility] Address: [address] [place] [address] Performed By: #### 2 4323-8 #### [facility] CLIA [id number] [address] [place] [address] ALT [Catalytic activity/Vol] 15 U/L Normal 7-38 [facility] Comment on above: Order Comment: Speci men Type: BLOOD SPECIMEN [facility]ing Facility: [facility] Address: [address] [place] [address] Performed By: #### 2 4323-8 #### [facility] CLIA [id number] [address] [place] [address] Anion gap [Moles/Vol] 10 mmol/L Normal 9-18 [facility] Comment on above: Order Comment: Speci men Type: BLOOD SPECIMEN [facility] Address: [address] [place] [address] [place] [address] Performed By: #### 2 4323-8 #### [facility] CLIA [id number] [address] [place] [address] AST [Catalytic activity/Vol] 13 U/L Normal 13-35 [facility] Comment on above: Order Comment: Speci men Type: BLOOD SPECIMEN [facility] Address: [address] [place] [address] Performed By: #### 2 4323-8 #### [facility] CLIA [id number] [address] [place] [address] Bilirubin [Mass/Vol] 0.3 mg/dL Normal 0.2-1.3 [facility] Comment on above: Order Comment: Speci men Type: BLOOD SPECIMEN [facility] Address: [address] [place] [address] Performed By: #### 2 4323-8 #### [facility] CLIA [id number] [address] [place] [address] Calcium [Mass/Vol] 9.5 mg/dL Normal 8.5-10.2 [facility] Comment on above: Order Comment: Speci men Type: BLOOD SPECIMEN [facility]ing Facility[facility] Address: [address] [place] [address] Performed By: #### 2 4323-8 #### [facility] CLIA [id number] [address] [place] [address] Chloride [Moles/Vol] 106 mmol/L High 97-105 [facility] Comment on above: Order Comment: Speci men Type: BLOOD SPECIMEN Ordering Facility: [facility] Address: [address] [place], [place] [address] Performed By: #### 2 4323-8 #### [facility] CLIA [id number] [address] [place] [address] CO2 [Moles/Vol] 26 mmol/L Normal 22-30 [facility] Comment on above: Order Comment: Speci men Type: BLOOD SPECIMEN Ordering Facility: [facility] Address: [address] [place] [address] Performed By: #### 2 4323-8 #### [facility] CLIA [id number] [address] [place] [address] Creatinine [Mass/Vol] 0.75 mg/dL Normal 0.58-0.96 [facility] Comment on above: Order Comment: Laury men Type: BLOOD SPECIMEN Ordering Facility: [facility] Address: [address] [place] [id number] Performed By: #### 2 4323-8 #### [facility] CLIA [id number] [address] [place] [address] Creatinine and Glomerular filtration rate.predicted panel (S/P/Bld) 109 mL/min/1.73m??? Normal >=60 [facility] Comment on above: Order Comment: Laury augustine Type: BLOOD SPECIMEN Ordering Facility: [facility] Address: [address] [place] [address] Result Comment: Stephani mated Glomerular Filtration Rate [...] GFR. Performed By: #### 2 4323-8 #### [facility] CLIA [id number] [address] [place] [address] Glucose [Mass/Vol] 104 mg/dL High 74-99 [facility] Comment on above: Order Comment: Abbimurray bradshaw Type: BLOOD SPECIMEN Ordering Facility: [facility] Address: [address] [id number] Result Comment: The [place] Diabetes Association (ADA) provides guidance for cutoff [...] Standards of Medical Care in Diabetes 2016, [place] [employer] Association. Diabetes Care. 2016.39(Suppl 1). Performed By: #### 2 4323-8 #### [facility] CLIA [id number] [address] [place] [address] Potassium [Moles/Vol] 4.2 mmol/L Normal 3.7-5.1 [facility] Comment on above: Order Comment: Speci men Type: BLOOD SPECIMEN Ordering Facility: [facility] Address: [address] [place], [place] [address] Performed By: #### 2 4323-8 #### [facility] CLIA [id number] [address] [place] [address] Protein [Mass/Vol] 7.4 g/dL Normal 6.3-8.0 [facility] Comment on above: Order Comment: Speci men Type: BLOOD SPECIMEN Ordering Facility: [facility] Address: [address] [place] [address] Performed By: #### 2 4323-8 #### [facility] CLIA [id number] [address] [place] [address] Sodium [Moles/Vol] 142 mmol/L Normal 136-144 [facility] Comment on above: Order Comment: Speci men Type: BLOOD SPECIMEN Ordering Facility: [facility] Address: [address] [place] [address] Performed By: #### 2 4323-8 #### [facility] CLIA [id number] [address] [place] [address] Urea nitrogen [Mass/Vol] 12 mg/dL Normal 7-21 [facility] Comment on above: Order Comment: Speci men Type: BLOOD SPECIMEN [facility]ing Facility: [facility] Address: [address] [place] [address] Performed By: #### 2 4323-8 #### [facility] CLIA [id number] [address] [place] [address] Ferritin SerPl-mCncon 2023 Ferritin [Mass/Vol] 86.7 ng/mL Normal 14.7-205.1 [facility] Comment on above: Order Comment: Speci men Type: BLOOD SPECIMEN Ordering Facility: [facility] Address: [address] [place] [address] Performed By: #### 2 276-4, 9, 2283-12 #### [facility] CLIA [id number] [address] [place] [address] [place] Folate SerPl-mCncon 09-05-19 Folate [Mass/Vol] 12.0 ng/mL Normal >4.7 [facility] Comment on above: Order Comment: Speci men Type: BLOOD SPECIMEN [facility]ing Facility: [facility] Address: [address] [place] [address] Performed By: #### 2 276-4, 2132-01, 2283-12 #### [facility] CLIA [id number] [address] [place] [address] [place] H. pylori IgG IA Qlon 2023 H. PYLORI IGG, QUAL Negative Normal Negative [facility] Comment on above: Order Comment: Speci men Type: BLOOD SPECIMEN Ordering Facility: [facility] Address: [address] [place] [address] Result Comment: Cash ot exclude H. pylori infection if the specimen collected 3-4 weeks after onset of symptoms. Performed By: #### 2 276-4, 2132-01, 2283-12 #### [facility] CLIA [id number] [address] [place] [address] [place] HbA1c (Bld)on 09-05-2023 Average glucose Estimated from glycated hemoglobin (Bld) [Mass/Vol] 108 mg/dL Normal [facility] Comment on above: Order Comment: Laury bradshaw Type: BLOOD SPECIMEN Ordering Facility: [facility] Address: [address] [place] [address] Result Comment: eAG: (Estimated average glucose) is a calculated value from HgbA1c and is client account representative of the average blood glucose level in the last 2-3 month period. Performed By: #### 5 5454-3 #### [facility] CLIA [id number] [address] [place] [address] [place] HbA1c (Bld) [Mass fraction] 5.4 % Normal 4.3-5.6 [facility] Comment on above: Order Comment: Laury bradshaw Type: BLOOD SPECIMEN Ordering Facility: [facility] Address: [address] [place] [address] Result Comment: [place] Diabetes Association guidelines indicate that patients with HgbA1c in the range 5.7-6.4% are at increased risk for development of diabetes, and intervention by lifestyle modification may be beneficial. HgbA1c greater or equal to 6.5% is considered diagnostic of diabetes. Performed By: #### 5 5454-3 #### [facility] CLIA [id number] [address] [place] [address] [place] Iron and Iron binding capaci ty panelon 09-05-2023 Iron [Mass/Vol] 94 ug/dL Normal 41-186 [facility] Comment on above: Order Comment: Laury bradshaw Type: BLOOD SPECIMEN Ordering Facility: [facility] Address: [address] [place] [address] Performed By: #### 5 0190-8, 3016-3, 32293-8 #### [facility] CLIA [id number] [address] [place] [address] [place] #### 28045-2 #### [facility] CLIA [id number] [address] [place] [address] [place] [facility] CLIA [id number] [address] [place] [address] Iron binding capacity [Mass/Vol] 310 ug/dL Normal 232-386 [facility] Comment on above: Order Comment: Speci men Type: BLOOD SPECIMEN Ordering Facility: [facility] Address: [address] [place] [address] Performed By: #### 5 0190-8, 3016-3, 06623-0 #### [facility] CLIA [id number] [address] [place] [address] [place] #### 41950-4 #### [facility] CLIA [id number] [address] [place] [address] OF [facility] CLIA [id number] [address] [place] [address] Iron/TIBC [Molar ratio] 30.3 % Normal 15.0-57.0 [facility] Comment on above: Order Comment: Speci men Type: BLOOD SPECIMEN [facility]ing Facility: [facility] Address: [address] [place] [address] Performed By: #### 5 0190-8, 3016-3, 64838-9 #### [facility] CLIA [id number] [address] [place] [address] [place] #### 08195-9 #### [facility] CLIA [id number] [address] [place] [address] [place] [facility] CLIA [id number] [address] [place] [address] Lipid 1996 panelon 4 Cholesterol [Mass/Vol] 179 mg/dL Normal <200 [facility] Comment on above: Order Comment: Speci men Type: BLOOD SPECIMEN Ordering Facility: [facility] Address: [address] [place] [address] Result Comment: <200 mg/dL, Desirable 200-239 mg/dL, Borderline high >239 mg/dL, High Performed By: #### 2 276-4, 2132-9, 2283-12 #### [facility] CLIA [id number] [address] [place] [address] [place] Cholesterol in HDL [Mass/Vol] 45 mg/dL Normal >39 [facility] Comment on above: Order Comment: Laury augustine Type: BLOOD SPECIMEN Ordering Facility: [facility] Address: [address] [place] [address] Result Comment: 40-5 9 mg/dL, Acceptable >59 mg/dL, High: Negative risk factor for coronary heart disease <40 mg/dL, Low: Positive risk factor for coronary heart disease Performed By: #### 2 276-4, 2132-01, 2283-12 #### [facility] CLIA [id number] [address] [place] [address] [place] Cholesterol in LDL [Mass/Vol] 119 mg/dL High <100 [facility] Comment on above: Order Comment: Laury bradshaw Type: BLOOD SPECIMEN Ordering Facility: [facility] Address: [address] [place] [address] Result Comment: <100 mg/dL, Optimal 100-129 mg/dL, Near optimal/above optimal 130-159 mg/dL, Borderline high 160-189 mg/dL, High >189 mg/dL, Very high Secondary prevention optimal LDL Cholesterol levels are recommended to be < 70 mg/dL Performed By: #### 2 276-4, 2132-01, 2283-12 #### [facility] CLIA [id number] [address] [place] [address] [place] Cholesterol in LDL/Cholesterol in HDL [Mass ratio] 2.64 {ratio} High <2.54 [facility] Comment on above: Order Comment: Abbimurray bradshaw Type: BLOOD SPECIMEN Ordering Facility: [facility] Address: [address] [place] [address] Result Comment: Refe rence: 1. National Cholesterol Education Program ATP III Guideline At-A-Glance Quick Desk Reference: National Heart, Lung, and Blood [place]. National Institutes of Health. 2001: NIH Publication No. 01-3305. 2. An International Atherosclerosis Society position paper: global recommendations for the management of dyslipidemia: executive summary, Atherosclerosis. 2014: 232(2):410-413. Performed By: #### 2 276-4, 2132-01, 2283-12 #### [facility] CLIA [id number] [address] [place] [address] [place] Cholesterol in VLDL [Mass/Vol] 15 mg/dL Normal <30 [facility] Comment on above: Order Comment: Laury men Type: BLOOD SPECIMEN [facility]ing Facility[facility] Address: [address] [place] [address] Performed By: #### 2 276-4, 2132-01, 2283-12 #### [facility] CLIA [id number] [address] [place] [address] [place] Cholesterol non HDL [Mass/Vol] 134 mg/dL High <130 [facility] Comment on above: Order Comment: Laury bradshaw Type: BLOOD SPECIMEN Ordering Facility: [facility] Address: [address] [place] [address] Result Comment: <130 mg/dL, Optimal 130-159 mg/dL, Near optimal/above optimal 160-189 mg/dL, Borderline high 190-219 mg/dL, High >219 mg/dL, Very high Secondary prevention optimal non HDL Cholesterol levels are recommended to be <100 mg/dL Performed By: #### 2 276-4, 2132-01, 2283-12 #### [facility] CLIA [id number] [address] [place] [address] [place] Cholesterol.total/Cho lesterol in HDL [Mass ratio] 3.98 {ratio} Normal <5.10 [facility] Comment on above: Order Comment: Laury bradshaw Type: BLOOD SPECIMEN Ordering Facility: [facility] Address: [address] [place] [address] Performed By: #### 2 276-4, 2132-01, 2283-12 #### [facility] CLIA [id number] [address] [place] [address] [place] FASTING TIME 12 hrs Normal [facility] Comment on above: Order Comment: Speci men Type: BLOOD SPECIMEN Ordering Facility: [facility] Address: [address] [place] [address] Performed By: #### 2 276-4, 9, 2283-12 #### [facility] CLIA [id number] [address] [place] [address] [place] Triglyceride [Mass/Vol] 74 mg/dL Normal <150 [facility] Comment on above: Order Comment: Speci men Type: BLOOD SPECIMEN Ordering Facility: [facility] Address: [address] [place] [address] Result Comment: <150 mg/dL, Normal 150-199 mg/dL, Borderline high 200-499 mg/dL, High >499 mg/dL, Very high Performed By: #### 2 276-4, 2132-01, 2283-12 #### [facility] CLIA [id number] [address] [place] [address] [place] NT-proBNP SerPl-mCncon 09-04 Natriuretic peptide.B prohormone N-Terminal [Mass/Vol] 48 pg/mL Normal <125 [facility] Comment on above: Order Comment: Speci men Type: BLOOD SPECIMEN Ordering Facility: [facility] Address: [address] [place] [address] Performed By: #### 2 276-4, 2132-01, 2283-12 #### [facility] CLIA [id number] [address] [place] [address] [place] TSH SerPl-aCncon 09-05-2023 TSH Qn 6.440 m[IU]/L High 0.270-4.200 [facility] Comment on above: Order Comment: Speci men Type: BLOOD SPECIMEN Ordering Facility: [facility] Address: [address] [place] [address] Result Comment: If t he patient is , TSH reference range varies by gestational period: First Trimester (weeks 9-12): 0.180-2.990 mIU/L Second Trimester: 0.110-3.980 mIU/L Third Trimester: 0.480-4.710 mIU/L Seth Crews et al. A Practical Approach for the Verifications and Determination of Site- and Trimester-Specific Reference Intervals for Thyroid Function tests in . Thyroid, 2019:29:3:412-420. Zhang E, et al. 2017 Guidelines of the [place] Thyroid Association for the Diagnosis and Management of Thyroid Disease during and the . Thyroid, 2017:27:3:315-389. Performed By: #### 2 276-4, 2132-9, 2284-8 #### [facility] CLIA [id number] [address] [place] [address] [place] VITAMIN B1 (THIAMINE), WHOLE BLOODon 09-05-2023 Thiamine (Bld) [Moles/Vol] 179.2 nmol/L Normal 84.3-213.3 [facility] Comment on above: Order Comment: Speci men Type: BLOOD SPECIMEN Ordering Facility: [facility] Address: [address] [place] [address] Result Comment: This assay measures the concentration of thiamine diphosphate (TDP), the primary active form of vitamin B1. Approximately 90 percent of vitamin B1 present in whole blood is TDP. Thiamine and thiamine monophosphate, which comprise the remaining 10 percent, are not measured. This test was developed and its performance characteristics determined by [facility] [place] (-[facility]). It has not been cleared or approved by the FDA. -[facility] is regulated under CLIA as qualified to perform high-complexity testing. This test is used for clinical purposes. It should not be regarded as investigational or for research. Performed By: #### B 1WB #### [facility] CLIA [id number] [address] [place] [address] [place] Vit B12 SerPl-mCncon 024 Cobalamin (Vitamin B12) [Mass/Vol] 612 pg/mL Normal 232-1245 [facility] Comment on above: Order Comment: Speci men Type: BLOOD SPECIMEN Ordering Facility: [facility] Address: [address] [place] [address] Performed By: #### 2 276-4, 2132-9, 2284-8 #### [facility] CLIA [id number] [address] [facility] [place] [address] [place] Glucose - FINGER STICKon Glucose [Mass/Vol] 5.4 mg/dL [facility] Other PAP ACOG PANEL 2: 30 to 65on 06-10-2022 . . Normal [facility] Comment on above: Result Comment: Perf ormed at: WB Performed By: #### 4 [id number] #### [facility] [address] [address] [address] Sachin Coates Age Gdln ACOG Testing -66 Normal [facility] Comment on above: Performed By: #### 4 [id number] #### [facility] [address] [address] [address] Sachin Coates DIAGNOSIS: Comment Normal [facility] Comment on above: Result Comment: NEGA TIVE FOR INTRAEPITHELIAL LESION OR MALIGNANCY. CELLULAR CHANGES ASSOCIATED WITH INFLAMMATION ARE PRESENT. THIS SPECIMEN WAS RESCREENED PART OF OUR FLIGHT OPERATIONS COORDINATOR PROGRAM. Performed at: WB Performed By: #### 4 [id number] #### [facility] [address] [address] [address] Sachin Coates HPV Aptima Negative Normal Negative [facility] Comment on above: Result Comment: This nucleic acid amplification test detects fourteen high-risk HPV types (16,18,31,33,35,39,45,51,52,56,58,59,66,68) without differentiation. Performed at: =G Performed By: #### 4 [id number] #### [facility] [address] [address] [address] Sachin Coates HPV Genotype Reflex Comment Normal [facility] Comment on above: Result Comment: Crit eria not met, HPV Genotype not performed. Performed at: WB Performed By: #### 4 [id number] #### [facility] [address] [place] [address] Dr. Sachin Coates Methodology: Comment [facility] Comment on above: Result Comment: This liquid based ThinPrep(R) pap test was screened with the use of an image guided system. Performed at: WB Performed By: #### 4 [id number] #### [facility] [address] [place] [address] Dr. Sachin Coates Note: Comment Normal [facility] Comment on above: Result Comment: The Pap smear is a screening test designed to aid in the detection of premalignant and malignant conditions of the uterine cervix. It is not a diagnostic procedure and should not be used as the sole means of detecting cervical cancer. Both false-positive and false-negative reports do occur. . Performed at: WB Performed By: #### 4 [id number] #### [facility] [address] [place] [address] Dr. Sachin Coates Performed by: Comment Normal [facility] Comment on above: Result Comment: Peyton Beverly, [employer] (ASCP) Performed at: WB Performed By: #### 4 [id number] #### [facility] [address] [place] [address] Dr. Sachin Coates QC reviewed by: Comment Normal [facility] Comment on above: Result Comment: Cielo Cochran, Supervisory [employer] (ASCP) Performed at: WB Performed By: #### 4 [id number] #### [facility] [address] [place] [address] Dr. Sachin Coates Specimen adequacy: Comment Normal [facility] Comment on above: Result Comment: Sati sfactory for evaluation. Endocervical and/or squamous metaplastic cells (endocervical component) are present. Performed at: WB Performed By: #### 4 [id number] #### [facility] [address] [place] [address] Dr. Sachin Coates COVID-19 SOFIAOrdered By: Dario To on 12-02-2021 SARS-CoV+SARS-CoV-2 (COVID-19) Ag IA.rapid Ql (Resp) Negative Negative [facility] Comment on above: This is a duplicate Zuleyma SARS Antigen (PAMELLA) result to be used for statistical tracking purpose only. No Panel InformationOrdered By: Ck To on 12-02-2021 SARS Antigen (LFIA) [facility] Chart Updateon 08-08-2020 Chart Update Chart [...] Aug 08 2020 10:18AM EST (Author) Normal Abazab BOOK CUTTER - Procedure Visiton 0 07-10-2020 BOOK CUTTER - Procedure Visit Chief Complaint IUI Active [...] Touchworks ESTRADIOLon 07-08-2020 ESTRADIOL 186 pg/mL Normal [facility] Comment on above: Result Comment: Estr adiol measurement is performed using the Shruthi [employer] Access Sensitive Estradiol Immunoassay. Estradiol testing is performed using a different test methodology at [facility] than other [facility]. Direct result comparison should only be made within the same method. REF VALUES EARLY FOLLICULAR 22-115 MID FOLLICULAR 25-115 OVULATORY PEAK 32-517 MID LUTEAL 37-246 POSTMENOPAUSE <15- 25 MALE <15- 32 Performed By: #### G [facility] #### [facility] [address] [place] [address] Estradiol, Serumon E2 [Mass/Vol] 186 pg/mL MG-OBGYN-Ri sm an 310 IVF Work Phone: Comment on above: Estradiol measuremen t is performed using the Shruthi J Carlos Access Sensitive Estradiol Immunoassay. Estradiol testing is performed using a different test methodology at [facility] than other [facility]. Direct result comparison should only be made within the same method.REF VALUESEARLY FOLLICULAR 22-115MID FOLLICULAR 25-115OVULATORY PEAK 32-517MID LUTEAL 37-246POSTMENOPAUSE <15- 25MALE <15- 32 LUTEINIZING HORMONEon 2020 LUTEINIZING HORMONE 9.5 IU/L Normal [facility] Comment on above: Result Comment: Lute inizing Hormone [LH] is performed using the Shruthi [place] Access Immunoassay. LH testing is performed using a different test methodology at [facility] than other [facility]. Direct result comparison should only be made within the same method. REF VALUES FOLLICULAR PHASE 1.5-10.0 MID-CYCLE 13.0-72.0 LUTEAL PHASE 0.5-13.0 MENOPAUSE 15.0-65.0 PREPUBERTY 0- 3.0 CHILDREN 0- 6.0 ADULT MALE 1.0- 9.0 Performed By: #### G [facility] #### [facility] [address] [place] [address] Luteinizing Hormone, Serumon 07-08-2020 Lutropin Qn 9.5 {IU/L} QY-CJLUJ-Rcdo an 310 IVF Work Phone: Comment on above: Luteinizing Hormone [LH] is performed using the Shruthi J Carlos Access Immunoassay. LH testing is performed using a different test methodology at [facility] than other [facility]. Direct result comparison should only be made within the same method.REF VALUESFOLLICULAR PHASE 1.5-10.0MID-CYCLE 13.0-72.0LUTEAL PHASE 0.5-13.0MENOPAUSE 15.0-65.0PREPUBERTY 0- 3.0CHILDREN 0- 6.0ADULT MALE 1.0- 9.0 TYPE + SCREENon 07-06-2020 ABO TYPE A Normal [facility] Comment on above: Performed By: #### T +S #### [facility] [address] [place] [address] RH TYPE Positive Normal [facility] Comment on above: Performed By: #### T +S #### [facility] [address] [place] [address] ESTRADIOLon 07-05-2020 ESTRADIOL 58 pg/mL Normal [facility] Comment on above: Result Comment: Estr adiol measurement is performed using the Shruthi [employer] Access Sensitive Estradiol Immunoassay. Estradiol testing is performed using a different test methodology at [facility] than other [facility]. Direct result comparison should only be made within the same method. REF VALUES EARLY FOLLICULAR 22-115 MID FOLLICULAR 25-115 OVULATORY PEAK 32-517 MID LUTEAL 37-246 POSTMENOPAUSE <15- 25 MALE <15- 32 Performed By: #### G CCHA #### [facility] [address] [place] [address] Estradiol, Serumon E2 [Mass/Vol] 58 pg/mL [facility] an [facility] Work Phone: Comment on above: Estradiol measuremen t is performed using the Shruthi [place] Access Sensitive Estradiol Immunoassay. Estradiol testing is performed using a different test methodology at [facility] than other [facility]. Direct result comparison should only be made within the same method.REF VALUESEARLY FOLLICULAR 22-115MID FOLLICULAR 25-115OVULATORY PEAK 32-517MID LUTEAL 37-246POSTMENOPAUSE <15- 25MALE <15- 32 Hematologyon 02-24-2021 ABO group Nom (Bld) A MG-MOTOR RACER-Rism an 310 IVF Work Phone: Blood group antibody screen Ql Negative WZ-OEZZO-Ezvu an 310 IVF Work Phone: Rh immune globulin screen (Bld) [Interp] Positive MG-OBGYN-R ism an 310 IVF Work Phone: LUTEINIZING HORMONEon 2020 LUTEINIZING HORMONE 9.2 IU/L Normal [facility] Comment on above: Result Comment: Lute inizing Hormone [LH] is performed using the Shruthi [employer] Access Immunoassay. LH testing is performed using a different test methodology at [facility] than other [facility]. Direct result comparison should only be made within the same method. REF VALUES FOLLICULAR PHASE 1.5-10.0 MID-CYCLE 13.0-72.0 LUTEAL PHASE 0.5-13.0 MENOPAUSE 15.0-65.0 PREPUBERTY 0- 3.0 CHILDREN 0- 6.0 ADULT MALE 1.0- 9.0 Performed By: #### L H #### [facility] [address] [place] [address] Luteinizing Hormone, Serumon 07-05-2020 Lutropin Qn 9.2 {IU/L} RF-HIMUQ-Uqrj an 310 IVF Work Phone: Comment on above: Luteinizing Hormone [LH] is performed using the Shruthi [employer] Internet Access Immunoassay. LH testing is performed using a different test methodology at [facility] than other [facility]. Direct result comparison should only be made within the same method.REF VALUESFOLLICULAR PHASE 1.5-10.0MID-CYCLE 13.0-72.0LUTEAL PHASE 0.5-13.0MENOPAUSE 15.0-65.0PREPUBERTY 0- 3.0CHILDREN 0- 6.0ADULT MALE 1.0- 9.0 BOOK CUTTER - Office Visiton 02-0 BOOK CUTTER - Office Visit Diagnoses/Problems Assessed Morbid obesity [...] MD [facility] [phone] [place] [phone] [place] 1 Amended By: Bayron Mccarty; Jun 19 [...] MD [facility] [phone] [place] [phone] [place] Appointment Duration:. 25 minutes; greater than half of the time was spent on counseling. 1 Amended By: Bayron Mccarty; Jun 19 2020 10:16 AM ESTChief Complaint follow up History of Present Vvyzvfy6706/19/2020 9:30AM JALEESA ARRIETA , 30 year is contacted for an (audio-visual, or audio only) Telehealth visit. Today's visit was provided through telemedicine conferencing: Using ServiceFrame platform. Consent: The concept of telemedicine? has [...] is a telehealth appointment Results/Data HCG, Beta [id number] 11:58AMBayron Mccarty Test NameResultFlagReference HCG, Beta Quantitative<2 mIU/mL Low-level positive HCG results can be seen in early , in karismha- or post-menopausal females due to normal pituitary [...] performed using a different test methodology at [facility] than other [facility]. Direct result comparison should only be made within the same method. REF VALUES NON FEMALE <5 MALES <5 Progesterone, [id number] 11:58AMBayron Mccarty Test NameResultFlagReference Progesterone, Serum10.5 ng/mL REF VALUES MALE <0.3- 1.2 FOLLICULAR PHASE <0.3- 1.4 LUTEAL PHASE 3.3-25.6 MID-LUTEAL PHASE 4.4-28.0 POSTMENOPAUSAL <0.3- 0.7 FEMALES: 1ST TRIMESTER 11.2- 90.0 2ND TRIMESTER 25.6- 89.4 3RD TRIMESTER 48.4-422.5 . Patients receiving DHEA-S supplements may show false elevation of progesterone for results near 1.0 ng/mL. Contact laboratory at [phone] if alternative testing is needed. CMV IgG and IgM [id number] 11:58AMBayron Mccarty NameResultFlagReference CMV IgG AntibodyREACTIVEASee Below Reference Range: NONREACTIVE CMV IGM [id number] 11:58Bayron Stroud NameResultFlagReference CMV IGM AB<30.00 AU/mL REFERENCE RANGE: [...] testing in two or more weeks. Xray Bxxjwufkidsfhhdjobu69Jlm 2020 12:00AMBayron Mccarty [Mar 28, 2020 9:43AM Bayron Mccarty] Reason: Unspecified for Xray Hysterosalpingogram Test NameResultFlagReference Xray Hysterosalpingogram Please click on the link to view the study images Anti Mullerian [id number] 12:03PMBayron Mccarty Test NameResultFlagReference Anti Mullerian Hormone6.36 ng/mL For assays employing antibodies, the possibility exists for interference by heterophile antibodies in the samples.1 1.Oswald Crews. Interferences in Immunoassays - still a threat. Clin. Chem. 2000; 46: 8186-7869. This test was developed and its performance characteristics determined by [employer]. It has not been cleared or approved by the Food and Drug Administration. Reference Range: Females 26 - 30y: 1.03 - 11.10 Median 4.20 AMH concentrations of >= 1.06 ng/mL is correlated with a better response to ovarian stimulation, produced more retrievable oocytes and higher odds of live according to Gleicher et al. Fertility and Sterility. 2010: 94:4594-6702. The current AMH test method correlates with [...] exclude an AMH-secreting ovarian tumor. Rubella IgG [id number] 12:03PMBayron Mccarty Test NameResultFlagReference Rubella IgG AntibodyPOSITIVE [...] TSH WITH REFLEX TO FREE T4 IF [id number] 12:03PMBayron Mccarty Test NameResultFlagReference Thyroid Stimulating Hormone, Serum2.17 mIU/LSee Below Reference Range: 0.44 - 3.98 TSH testing is performed using different testing methodology at [facility] than at other [facility]. Direct result comparisons should only be made within the same method. Varicella Zoster IgG [id number] 12:03PMBayron Mccarty Test NameResultFlagReference Varicella Zoster IgG [...] altered results in serological assays. Vitamin D 25-[id number] 12:03PMBayron Mccarty Test NameResultFlagReference Vitamin D 25-Hydroxy, Level17 ng/mLA . DEFICIENCY: < 20 NG/ML INSUFFICIENCY: 20-29 NG/ML SUFFICIENCY: 30-100 NG/ML THIS ASSAY ACCURATELY QUANTIFIES THE SUM OF VITAMIN D3, 25-HYDROXY AND VIT D2,25-HYDROXY. { 17-Hydroxyprogesterone, [id number] 12:03PMBayron Mccarty Test NameResultFlagReference 17-Hydroxyprogesterone, Serum33 ng/dL [...] Endocrinol Metab. 1991;73:674-686; J Clin Endocrinol Metab. 1989;69;3625-0610; J Clin Endocrinol Metab. 1994;78:226-270. Pediatr Res 1988;23:525-529. MedLinePlus (accessed 10/25/13). This test was developed and its analytical performance characteristics have been determined by [place], [place]. It has not been cleared or approved by the U.S. Food and Drug Administration. This assay has been validated pursuant to the CLIA regulations and is used for clinical purposes. DHEA Sulfate, [id number] 12:03PMBayron Mccarty Test NameResultFlagReference DHEA Sulfate, Rfnuk882 ug/dL65 - 395 MATURITY-BASED REFERENCE RANGES: PUBERTAL [...] laboratory for further information. Testosterone Free + [id number] 12:03PMBayron Mccarty Test NameResultFlagReference Testosterone, Total63 ng/dLH2-45 For additional information, please refer to http://[employer]/faq/ TotalTestosteroneLCMSMSF AQ165 (This link is being provided for informational/ educational purposes only.) This test was developed and its analytical performance characteristics have been determined by [employer], [place]. It has not been cleared or approved by the U.S. Food and Drug Administration. This assay has been validated pursuant to the CLIA regulations and is used for clinical purposes. Testosterone, Free Serum8.8 pg/mLH0.1-6.4 This test was developed and its analytical performance characteristics have been determined by [place]. It has not been cleared or approved by the U.S. Food and Drug Administration. This assay has been validated pursuant to the CLIA regulations and is used for clinical purposes. Hemoglobin [id number] 12:03PMBayron Mccarty Test NameResultFlagReference Hemoglobin A1C, Level5.5 % Diagnosis of Diabetes-Adults Non-Diabetic: < or = 5.6% Increased risk for developing diabetes: 5.7-6.4% Diagnostic of diabetes: > or = 6.5% . Monitoring of Diabetes Age (y) Therapeutic Goal (%) Adults: >18 <7.0 Pediatrics: 13-18 <7.5 7-12 <8.0 0- 6 7.5-8.5 [place] [employer]. Diabetes Care 33(S1), May 2009. Estimated Average [id number] MG/DL GC + Chlamydia By Amplified [id number] 12:03Bayron Silva Test NameResultFlagReference N.GONORRHEA,AMPLIFIEDNEG ATIVENegative SOURCE: Urine Chlamydia Trach, AmplifiedNEGATIVENegativ e Hepatitis B Surface [id number] 12:03PMBayron Mccarty Test NameResultFlagReference Hep.B Surface AgNONREACTIVESee Below Reference Range: NONREACTIVE Biotin interference may cause falsely decreased results. Patients taking a Biotin dose of up to 5 mg/day should refrain from taking Biotin for 24 hours before sample collection. Providers may contact their local laboratory for further information. Hepatitis C Antibody [id number] 12:03PMBayron Mccarty Test NameResultFlagReference Hepatitis C-AntibodyNONREACTIVESee Below Reference Range: NONREACTIVE Results from patients taking biotin supplements or receiving high-dose biotin therapy should be interpreted with caution due to possible interference with this test. Providers may contact their local laboratory for further information. HIV 1/2 ANTIGEN/ANTIBODY SCREEN WITH REFLEX TO [id number] 12:03PMYuniorBayron polanco Test NameResultFlagReference HIV 1/2 AG/AB SCREENNONREACTIVESee Below Reference Range: NONREACTIVE HIV Ag/Ab screen is performed using the Siemens [employer]ell[employer] HIV Ag/Ab Combo assay which detects the presence of HIV p24 antigen as well as antibodies to HIV-1 (Group M and O) and HIV-2. SYPHILIS SCREENING WITH [id number] 12:03PMYuniorBayron polanco Test NameResultFlagReference SYPHILIS TOTAL ANTIBODYNONREACTIVESee Below SOURCE: Reference Range: NONREACTIVE No significant level of Treponema pallidum antibody detected. Repeat testing in 2 to 4 weeks may be considered if early infection or incubating syphilis infection is suspected. Signatures Electronically signed by : Bayron Mccarty MD; Jun 19 2020 10:16AM EST (Author) Normal [employer] CMV IGM ABon 04-20-2020 CMV IGM AB <30.00 Normal [facility] Comment on above: Result Comment: REFE RENCE [...] weeks. Performed By: #### C MVM2 #### [facility] [address] [place] [address] CMV IGG AND IGM ABon 020 CMV IGG AB REACTIVE Abnormal NONREACTIVE [facility] Comment on above: Performed By: #### C MV2 #### [facility] [address] [place] [address] PROGESTERONEon 04-16-2020 PROGESTERONE 10.5 ng/mL Normal [facility] Comment on above: Result Comment: REF VALUES MALE <0.3- 1.2 FOLLICULAR PHASE <0.3- 1.4 LUTEAL PHASE 3.3-25.6 MID-LUTEAL PHASE 4.4-28.0 POSTMENOPAUSAL <0.3- 0.7 FEMALES: 1ST TRIMESTER 11.2- 90.0 2ND TRIMESTER 25.6- 89.4 3RD TRIMESTER 48.4-422.5 . Patients receiving DHEA-S supplements may show false elevation of progesterone for results near 1.0 ng/mL. Contact laboratory at [phone] if alternative testing is needed. Performed By: #### P BOBBY #### [facility] [address] [place] [address] HCG,BETA-QUANTITATIVEon HCG,BETA-QUANTITATIVE <2 Normal [facility] Comment on above: Result Comment: Low- level [...] performed using a different test methodology at [facility] than other [facility]. Direct result comparison should only be made within the same method. REF VALUES NON FEMALE <5 MALES <5 Performed By: #### H CGQU #### [address] [id number] BOOK CUTTER - Office Visiton BOOK CUTTER - Office Visit Chief Complaint An interactive [...] test results. Roby JEWELL. History of Present Jthynza3804/14/2020 9:30AM JALEESA ARRIETA , 30 year is contacted for an (audio-visual, or audio only) Telehealth visit. Today's visit was provided through telemedicine conferencing: Using [employer] platform. Consent: The concept of telemedicine? has [...] 2020 1:15:24 PM Vitals Vital Signs Recorded: 22Zlf0643 09:08AM Height5 ft 6 in Lqbcxz978 lb BMI Xwfwfhltfl03.81 BSA Calculated2.34 FMF85Auj5745 Gravida1 Para0 Pain Scale0 Physical Exam This is a telehealth appointment Results/Data Anti Mullerian Xgxzmgx22Hhk3616 12:03PMBayron Mccarty Test NameResultFlagReference Anti Mullerian Hormone6.36 ng/mL For assays employing antibodies, the possibility exists for interference by heterophile antibodies in the samples.1 1.Oswald Crews. Interferences in Immunoassays - still a threat. Clin. Chem. 2000; 46: 8662-4085. This test was developed and its performance characteristics determined by [employer]. It has not been cleared or approved by the Food and Drug Administration. Reference Range: Females 26 - 30y: 1.03 - 11.10 Median 4.20 AMH concentrations of >= 1.06 ng/mL is correlated with a better response to ovarian stimulation, produced more retrievable oocytes and higher odds of live according to Aryaicher et al. Fertility and Sterility. 2010: 94:2985-6878. The current AMH test method correlates with [...] exclude an AMH-secreting ovarian tumor. Anti Mullerian Vfyvipz05Liw5523 12:03PMBayron Mccarty Test NameResultFlagReference Anti Mullerian Hormone6.36 ng/mL For assays employing antibodies, the possibility exists for interference by heterophile antibodies in the samples.1 1.Oswald Brunner Interferences in Immunoassays - still a threat. Clin. Chem. 2000; 46: 9364-0781. This test was developed and its performance characteristics determined by [employer]. It has not been cleared or approved by the Food and Drug Administration. Reference Range: Females 26 - 30y: 1.03 - 11.10 Median 4.20 AMH concentrations of >= 1.06 ng/mL is correlated with a better response to ovarian stimulation, produced more retrievable oocytes and higher odds of live according to Carey et al. Fertility and Sterility. 2010: 94:5296-1850. The current AMH test method correlates with [...] exclude an AMH-secreting ovarian tumor. Rubella IgG Posxrtog28Xvf7140 12:03PMBayron Mccarty Test NameResultFlagReference Rubella IgG AntibodyPOSITIVE [...] TSH WITH REFLEX TO FREE T4 IF FQBDNIHS18Noh0627 12:03PMBayron Mccarty Test NameResultFlagReference Thyroid Stimulating Hormone, Serum2.17 mIU/LSee Below Reference Range: 0.44 - 3.98 TSH testing is performed using different testing methodology at [facility] than at other [facility]. Direct result comparisons should only be made within the same method. Varicella Zoster IgG Ethfzidc75Tbg4242 12:03PMYuniorBayron polanco Test NameResultFlagReference Varicella Zoster IgG [...] altered results in serological assays. Vitamin D 25-Pslnydr39Ksd4958 12:03PMBibianaBayron Test NameResultFlagReference Vitamin D 25-Hydroxy, Level17 ng/mLA . DEFICIENCY: < 20 NG/ML INSUFFICIENCY: 20-29 NG/ML SUFFICIENCY: 30-100 NG/ML THIS ASSAY ACCURATELY QUANTIFIES THE SUM OF VITAMIN D3, 25-HYDROXY AND VIT D2,25-HYDROXY. { 17-Hydroxyprogesterone, Qygmy30Pcd3127 12:03MARTÍNYuniorBayron polanco Test NameResultFlagReference 17-Hydroxyprogesterone, Serum33 ng/dL Unable [...] Endocrinol Metab. 1991;73:674-686; J Clin Endocrinol Metab. 1989;69;1148-3020; J Clin Endocrinol Metab. 1994;78:226-270. Pediatr Res 1988;23:525-529. MedLinePlus (accessed 10/25/13). This test was developed and its analytical performance characteristics have been determined by [employer], [place]. It has not been cleared or approved by the U.S. Food and Drug Administration. This assay has been validated pursuant to the CLIA regulations and is used for clinical purposes. DHEA Sulfate, Neyqd62Xlj3996 12:03PMBayron Mccarty Test NameResultFlagReference DHEA Sulfate, Olxdq914 ug/dL65 - 395 MATURITY-BASED REFERENCE RANGES: PUBERTAL [...] laboratory for further information. Testosterone Free + Ccuil37Kex9042 12:03PMBayron Mccarty Test NameResultFlagReference Testosterone, Total63 ng/dLH2-45 For additional information, please refer to http://education.[employer]/faq/ TotalTestosteroneLCMSMSF AQ165 (This link is being provided for informational/ educational purposes only.) This test was developed and its analytical performance characteristics have been determined by [employer], [place]. It has not been cleared or approved by the U.S. Food and Drug Administration. This assay has been validated pursuant to the CLIA regulations and is used for clinical purposes. Testosterone, Free Serum8.8 pg/mLH0.1-6.4 This test was developed and its analytical performance characteristics have been determined by [employer] [place], [place]. It has not been cleared or approved by the U.S. Food and Drug Administration. This assay has been validated pursuant to the CLIA regulations and is used for clinical purposes. Hemoglobin R2E66Lda4496 12:03PMBayron Mccarty Test NameResultFlagReference Hemoglobin A1C, Level5.5 % Diagnosis of Diabetes-Adults Non-Diabetic: < or = 5.6% Increased risk for developing diabetes: 5.7-6.4% Diagnostic of diabetes: > or = 6.5% . Monitoring of Diabetes Age (y) Therapeutic Goal (%) Adults: >18 <7.0 Pediatrics: 13-18 <7.5 7-12 <8.0 0- 6 7.5-8.5 [place] [employer]. Diabetes Care 33(S1), May 2009. Estimated Average Pizrufo537 MG/DL GC + Chlamydia By Amplified Xzxhpxyxh77Zze1952 12:03PMBayron Mccarty Test NameResultFlagReference N.GONORRHEA,AMPLIFIEDNEG ATIVENegative SOURCE: Urine Chlamydia Trach, AmplifiedNEGATIVENegativ e Hepatitis B Surface Ntjzbwt66Osw9701 12:03PMBayron Mccarty Test NameResultFlagReference Hep.B Surface AgNONREACTIVESee Below Reference Range: NONREACTIVE Biotin interference may cause falsely decreased results. Patients taking a Biotin dose of up to 5 mg/day should refrain from taking Biotin for 24 hours before sample collection. Providers may contact their local laboratory for further information. Hepatitis C Antibody Yoaf15Vgf2745 12:03PMBayron Mccarty NameResultRefduncane Hepatitis C-AntibodyNONREACTIVESee Below Reference Range: NONREACTIVE Results from patients taking biotin supplements or receiving high-dose biotin therapy should be interpreted with caution due to possible interference with this test. Providers may contact their local laboratory for further information. HIV 1/2 ANTIGEN/ANTIBODY SCREEN WITH REFLEX TO [id number] 12:03PMBayron Mccarty NameResultRefereoneliae HIV 1/2 AG/AB SCREENNONREACTIVESee Below Reference Range: NONREACTIVE HIV Ag/Ab screen is performed using the Siemens TrackTik HIV Ag/Ab Combo assay which detects the presence of HIV p24 antigen as well as antibodies to HIV-1 (Group M and O) and HIV-2. SYPHILIS SCREENING WITH YLQZCI12Ptj9106 12:03PMBayron Mccarty NameResultFlagRefmarince SYPHILIS TOTAL ANTIBODYNONREACTIVESee Below SOURCE: Reference Range: NONREACTIVE No significant level of Treponema pallidum antibody detected. Repeat testing in 2 to 4 weeks may be considered if early infection or incubating syphilis infection is suspected. Diagnoses/Problems Irregular menses (626.4) (N92.6) Morbid obesity (278.01) (E66.01) Orders HCG, Beta Quantitative; Status:Active; Requested for:90Cwn1885; Perform:Lab Services - Lab To Draw (Blood Test); Due:13Jul2020;Ordered; For:Irregular menses; Ordered By:Bayron Mccarty; Progesterone, Serum; Status:Active; Requested for:32Kpq1908; Perform:Lab Services - Lab To Draw (Blood [...] MD [facility] [phone] [place] [phone] [place] Appointment Duration:. 25 minutes; greater than [...] MD [facility] [phone] [place] [phone] [place] 1 Amended By: Bayron Mccarty; Apr 14 2020 4:50 PM ESTSignatures Electronically signed by : Bayron Mccarty MD; Apr 14 2020 4:51PM EST (Author) Normal Abazab BOOK CUTTER - Procedure Visiton 1 05-28-2019 BOOK CUTTER - Procedure Visit Chief Complaint pt presents [...] 1 CAPSULE EVERY 12 HOURS DAILY; Therapy: 34Oky1555 to (Evaluate:40Lhi4827) Requested for: 90Lcy7809; Last Rx:[id number] Ordered Rx By: Bayron Mccarty; Dispense: 5 Days ; #:10 Capsule; Refill: 0;For: Fertility testing; KEVIN = N; Verified Transmission to [place] [address]; Msg to Pharmacy: start medication the night before her procedure; Last Updated By: Cindi Lizarraga; 01/24/2020 12:08:27 PM Vitamin D 25 MCG (1000 UT) Oral Tablet; Therapy: 88Txz1294 to Recorded Dispense: 0 Days ; #: [...] Signatures Electronically signed by : Kelle Vaz APRN-MANAGER HEALTH; Mar 28 2020 4:10PM EST (Author) Normal Abazab BOOK CUTTER - Office Visiton 11-0 BOOK CUTTER - Office Visit Chief Complaint The patient [...] is considering single parent procreation. Her usual Chief School Finance Officer with whom she would plan to follow with for care in a future is Dr. Ng in [place]. Active Problems Female infertility (628.9) (N97.9) Fertility [...] 1 CAPSULE EVERY 12 HOURS DAILY; Therapy: 22Euz8011 to (Evaluate:71Abv6421) Requested for: 07Atp2968; Last Rx:[id number] Ordered Rx By: Bayron Mccarty; Dispense: 5 Days ; #:10 Capsule; Refill: 0; For: Fertility testing; KEVIN = N; Verified Transmission to [place] [address]; Msg to Pharmacy: start medication the night before her procedure; Last Updated By: System, [employer]; 01/24/2020 12:08:27 PM Vitamin D 25 MCG (1000 UT) Oral Tablet; Therapy: 13Mar2020 to Recorded Dispense: 0 Days ; #: Sufficient Tablet; Refill: 0; KEVIN = N; Record; Last Updated By: Breezy Jasso; 2020 1:15:24 PM Vitals Vital Signs Recorded: 13Mar2020 01:08PM Heart Rate96 Meavmvqy392 Zcxgkdnaj11 Height5 ft 6 in Okhocc874 lb BMI Csduzlzxof76.91 BSA Calculated2.39 Tobacco Useb) No Fall Screeninga) No falls within the last year [id number] Gravida1 Para0 Pain Scale0 Diagnoses/Problems Morbid obesity [...] consultation of which greater than 50% was cmbw-pw-rdcr counseling. Weight loss prior to conception is [...] MD; Jun 12 2020 4:50PM EST Normal [employer] ANTI MULLERIAN HORMONEon ANTI MULLERIAN HORMONE 6.36 ng/mL Normal [facility] Comment on above: Result Comment: For assays employing antibodies, the possibility exists for interference by heterophile antibodies in the samples.1 1.Oswald Brunner Interferences in Immunoassays - still a threat. Clin. Chem. 2000; 46: 5793-7742. This test was developed and its performance characteristics determined by [employer]. It has not been cleared or approved by the Food and Drug Administration. Reference Range: Females 26 - 30y: 1.03 - 11.10 Median 4.20 AMH concentrations of >= 1.06 ng/mL is correlated with a better response to ovarian stimulation, produced more retrievable oocytes and higher odds of live according to Glejoseer et al. Fertility and Sterility. 2010: 94:3845-5466. The current AMH test method correlates with [...] ovarian tumor. Performed By: #### A #### [facility] [address] [place], [place] [id number] 17-HYDROXYPROGESTERONEon 17-HYDROXYPROGESTERON E 33 ng/dL Normal [facility] Comment on above: Result [...] Endocrinol Metab. 1991;73:674-686; J Clin Endocrinol Metab. 1989;69;6907-0840; J Clin Endocrinol Metab. 1994;78:226-270. Pediatr Res 1988;23:525-529. MedLinePlus (accessed 10/25/13). This test was developed and its analytical performance characteristics have been determined by [employer], [place]. It has not been cleared or approved by the U.S. Food and Drug Administration. This assay has been validated pursuant to the CLIA regulations and is used for clinical purposes. Performed By: #### 1 7OHP #### [facility] [address] [place], [place] TESTOST,FREE AND TOTALon TESTOSTERONE TOT.LC/MS/MS 63 ng/dL High 2-45 [facility] Comment on above: Result Comment: For additional information, please refer to http://education.RuiYi.[employer]/faq/ TsiymVacmsxteqyoeZTKOHKYOL829 (This link is being provided for informational/ educational purposes only.) This test was developed and its analytical performance characteristics have been determined by [employer] [place], [place]. It has not been cleared or approved by the U.S. Food and Drug Administration. This assay has been validated pursuant to the CLIA regulations and is used for clinical purposes. Performed By: #### G [facility] #### [facility] [address] [place] [address] TESTOSTERONE,FREE 8.8 pg/mL High 0.1-6.4 [facility] Comment on above: Result Comment: This test was developed and its analytical performance characteristics have been determined by [employer], [place]. It has not been cleared or approved by the U.S. Food and Drug Administration. This assay has been validated pursuant to the CLIA regulations and is used for clinical purposes. Performed By: #### G [facility] #### [facility] [address] [place] [address] DHEA SULFATEon 01-25-2020 DHEA SULFATE 214 ug/dL Normal 65 - 395 [facility] Comment on above: Result [...] further information. Performed By: #### G [facility] #### [facility] [address] [place] [address] GC + CHLAMYDIA BY AMPLIFIED DETECTIONon 01-25-2020 CHLAMYDIA TRACH.,AMPLIFIED Negative Normal Negative [facility] Comment on above: Performed By: #### G [facility] #### [facility] [address] [place] [address] N.GONORRHEA,AMPLIFIED Negative Normal Negative [facility] Comment on above: Performed By: #### G [facility] #### [facility] [address] [place] [address] HEPATITIS B SURFACE AGon HEP.B SURFACE AG NONREACTIVE Normal NONREACTIVE [facility] Comment on above: Result Comment: Biot in interference may cause falsely decreased results. Patients taking a Biotin dose of up to 5 mg/day should refrain from taking Biotin for 24 hours before sample collection. Providers may contact their local laboratory for further information. Performed By: #### G CCHA #### [facility] [address] [place] [address] HEPATITIS C ABon 01-25-2020 HEPATITIS C AB NONREACTIVE Normal NONREACTIVE [facility] [place] Comment on above: Result Comment: Resu lts from patients taking biotin supplements or receiving high-dose biotin therapy should be interpreted with caution due to possible interference with this test. Providers may contact their local laboratory for further information. Performed By: #### H CVAB #### [facility] [address] [place] [address] HIV ANTIGEN/ANTIBODY SCREENo n 01-25-2020 HIV AG/AB SCREEN NONREACTIVE Normal NONREACTIVE [facility] Comment on above: Result Comment: HIV Ag/Ab screen is performed using the Siemens [employer] HIV Ag/Ab Combo assay which detects the presence of HIV p24 antigen as well as antibodies to HIV-1 (Group M and O) and HIV-2. Performed By: #### G [facility] #### [facility] [address] [place] [address] RUBELLA IGG ABon 01-25-2020 RUBELLA IGG AB Positive Normal [facility] Comment on above: Result [...] assays. Performed By: #### R UBIG #### [facility] [address] [place] [address] SYPHILIS SCREENING WITH REFL EXon 01-25-2020 SYPHILIS TOTAL AB NONREACTIVE Normal NONREACTIVE [facility] Comment on above: Result Comment: No s ignificant level of Treponema pallidum antibody detected. Repeat testing in 2 to 4 weeks may be considered if early infection or incubating syphilis infection is suspected. Performed By: #### S YPHR #### [facility] [address] [place] [address] TSH WITH REFLEX TO FREE T4 I F ABNORMALon 01-25-2020 TSH Qn 2.17 m[IU]/L Normal 0.44 - 3.98 [facility] Comment on above: Result Comment: TSH testing is performed using different testing methodology at [facility] than at other [facility]. Direct result comparisons should only be made within the same method. Performed By: #### G CCHA #### [facility] [address] [place], [place] VARICELLA ZOSTER IGG ABon VARICELLA ZOSTER IGG AB Negative Normal NEGATIVE [facility] Comment on above: Result [...] assays. Performed By: #### V ARZG #### [facility] [address] [place] [address] VITAMIN D, 25-HYDROXYon 01-10 VITAMIN D, 25-HYDROXY 17 ng/mL Abnormal [facility] Comment on above: Result Comment: . DEFICIENCY: < 20 NG/ML INSUFFICIENCY: 20-29 NG/ML SUFFICIENCY: 30-100 NG/ML THIS ASSAY ACCURATELY QUANTIFIES THE SUM OF VITAMIN D3, 25-HYDROXY AND VIT D2,25-HYDROXY. { Performed By: #### G CCHA #### [facility] [address] [place] [address] GC + CHLAMYDIA BY AMPLIFIED DETECTIONon 01-24-2020 Lab Specimen Source Urine Normal [facility] Comment on above: Performed By: #### G [facility] #### [facility] [address] [place] [address] HEMOGLOBIN A1Con 01-24-2020 HbA1c (Bld) [Mass fraction] 5.5 % Normal [facility] Comment on above: Result Comment: Diag nosis of Diabetes-Adults Non-Diabetic: < or = 5.6% Increased risk for developing diabetes: 5.7-6.4% Diagnostic of diabetes: > or = 6.5% . Monitoring of Diabetes Age (y) Therapeutic Goal (%) Adults: >18 <7.0 Pediatrics: 13-18 <7.5 7-12 <8.0 0- 6 7.5-8.5 [place] [employer]. Diabetes Care 33(S1), May 2009. Performed By: #### H BA1E #### [facility] [address] [place] [address] HbA1c (Bld) [Mass fraction] 111 MG/DL Normal [facility] Comment on above: Performed By: #### H BA1E #### [facility] [address] [place] [address] BOOK CUTTER - Office Visiton 01-10 BOOK CUTTER - Office Visit Chief Complaint 29 year [...] is currently incarcerated, and will be in correction until 2026. She is interested in pursuing fertility testing today, and pending these results would potentially be interested in single-parent procreation with donor sperm. She is not currently sexually active. She has a history of ectopic in 2011, which was treated with laparoscopic left salpingectomy in [facility]. 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 pain FRAME ALIGNER HISTORY: STDs: Yes, remote history of gonorrhea [...] 01/24/2020 12:05:52 PM Vitals Vital Signs Recorded: 56Krc2479 11:13AM Kklvatfikhq92.7 F Heart Gesr122 Ffowcwbc654 Ofxwznfpu32 Height5 ft 6 in Icjpmj985 lb BMI Ywowgfwyqb05.13 BSA Calculated2.35 Tobacco Useb) No Fall Screeninga) No falls within the last year [id number] Gravida1 Para0 Pain Scale0 Diagnoses/Problems Female infertility (628.9) (N97.9) Fertility testing (V26.21) (Z31.41) Morbid obesity (278.01) (E66.01) Irregular menses (626.4) (N92.6) Screening for STD (sexually transmitted disease) (V74.5) (Z11.3) *Orders Anti Mullerian Hormone; Status:Active; Requested for:33Fzu3319; Perform:Lab Services - Lab To Draw (Non-Blood Test); Due:81Hnz3385;Ordered; For:Female infertility, Fertility testing, Irregular menses, Morbid obesity; Ordered By:Bayron Mccarty; Start: Doxycycline Monohydrate 100 MG Oral Capsule; TAKE 1 CAPSULE EVERY 12 HOURS DAILY Rx By: Bayron Mccarty; Dispense: 5 Days ; #:10 Capsule; Refill: 0; For: Fertility testing; KEVIN = N; Verified Transmission to [place] [address]; Msg to Pharmacy: start medication the night before her procedure; Last Updated By: Cindi Lizarraga; 01/24/2020 12:08:27 PM Maternal Medicine Referral Evaluation and Treatment Evaluate AND Treat Status: Hold For - Scheduling Requested for: 87Rxt6880 Ordered; For: Morbid obesity; Ordered By: Bayron Mccarty Performed: Due: 91Qty2513 17-Hydroxyprogesterone, Serum; Status:Active; Requested for:78Fvt2396; Perform:Lab Services - Lab To Draw (Blood Test); Due:55Hbc6302;Ordered; For:Screening for STD (sexually transmitted disease); Ordered By:Bayron Mccarty; DHEA Sulfate, Serum; Status:Active; Requested for:56Owv2570; Perform:Lab Services - Lab To Draw (Blood Test); Due:02Yov5172;Ordered; For:Screening for STD (sexually transmitted disease); Ordered By:Bayron Mccarty; Hemoglobin A1C; Status:Active; Requested for:85Tno0372; Perform:Lab Services - Lab To Draw (Blood Test); Due:36Lno5511;Ordered; For:Screening for STD (sexually transmitted disease); Ordered By:Bayron Mccarty; Rubella IgG Antibody; Status:Active; Requested for:77Tsy0403; Perform:Lab Services - Lab To Draw (Blood Test); Due:85Sfb3675;Ordered; For:Screening for STD (sexually transmitted disease); Ordered By:Bayron Mccarty; Testosterone Free + Total; Status:Active; Requested for:09Gdq4966; Perform:Lab Services - Lab To Draw (Blood Test); Due:06Oji5062;Ordered; For:Screening for STD (sexually transmitted disease); Ordered By:Bayron Mccarty; TSH WITH REFLEX TO FREE T4 IF ABNORMAL; Status:Active; Requested for:58Fwd3657; Perform:Lab Services - Lab To Draw (Blood Test); Due:28Qfs3729;Ordered; For:Screening for STD (sexually transmitted disease); Ordered By:Bayron Mccarty; Ultrasound Pelvis Transvaginal; Status:Hold For - Scheduling; Requested for:24Jan2020; Perform:[facility]; Order Comments:will call with menses [...] Hysterosalpingogram; Status:Hold For - Scheduling; Requested for:24Jan2020; Perform:[facility]; Order Comments:will call with menses to schedule. schedule between CD5-12. start doxycycline night prior to procedure; Due:92Frx1894;Ordered; For:Screening for STD (sexually transmitted disease); Ordered [...] sent to her home pharmacy ([facility] in [place]) [ ] Day 3 FSH, LH, E2 [x] AMH [x] TSH [x] Prolactin [x] Testosterone, DHEAS [x] HgA1C [x] STD screening [x ] Preconceptual screening including Rubella,Varicella, Blood type [ ] Genetic Screen with [employer] - will consider [ ] Take vitamins [x] Return to see [employer] ELECT[employer]ICIAN after workup complete to discuss management plan [...] Jan 24 2020 1:40PM EST (Author) Normal [employer] SYPHILIS SCREENING WITH REFL EXon 01-24-2020 Lab Specimen Source Normal [facility] Comment on above: Performed By: #### S YPHR #### [facility] [address] [place] [address] Performed By: #### V ARZG #### [facility] [address] [place] [address] Performed By: #### R UBIG #### [facility] [address] [place] [id number] Vital Signs Date Time Vital Sign Value Performing Clinician Facility 05-26-2024 14:09-0500 Body mass index (BMI) [Ratio] 49.57 kg/m2 [employer] Work Phone: [facility] 05-26-2024 14:09-0500 Body weight 139.31 kg [employer] Work Phone: [facility] 05-26-2024 14:09-0500 Diastolic blood pressure 82 mm[Hg] [employer] Work Phone: [facility] 05-26-2024 14:09-0500 Systolic blood pressure 126 mm[Hg] [employer] Work Phone: [facility] 05-17-2024 15:36-0500 Body mass index (BMI) [Ratio] 49.41 kg/m2 Tacho Shon DO Work Phone: [facility] 05-17-2024 15:36-0500 Body weight 138.85 kg Tacho Shon DO Work Phone: [facility] 05-17-2024 15:36-0500 Diastolic blood pressure 80 mm[Hg] Tacho Shon DO Work Phone: [facility] 05-17-2024 15:36-0500 Systolic blood pressure 118 mm[Hg] Tacho Shon DO Work Phone: [facility] 05-03-2024 15:11-0500 Body mass index (BMI) [Ratio] 49.09 kg/m2 Mena CARRILLO Work Phone: [facility] 05-03-2024 15:11-0500 Body weight 137.95 kg Mena CARRILLO Work Phone: [facility] 05-03-2024 15:11-0500 Diastolic blood pressure 70 mm[Hg] Mena Ann PA Work Phone: [facility] 05-03-2024 15:11-0500 Systolic blood pressure 120 mm[Hg] Mena Marissa PA Work Phone: [facility] 04-22-2024 09:51-0500 Body mass index (BMI) [Ratio] 49.45 kg/m2 Tacho Shon DO Work Phone: [facility] 04-22-2024 09:51-0500 Body weight 138.98 kg Tacho Shon DO Work Phone: [facility] 04-22-2024 09:51-0500 Diastolic blood pressure 80 mm[Hg] Tacho Shon DO Work Phone: [facility] [facility]24 09:51-0500 Systolic blood pressure 130 mm[Hg] Tacho Shon DO Work Phone: [facility] 04-06-2024 14:10-0500 Body mass index (BMI) [Ratio] 48.58 kg/m2 Mena CARRILLO Work Phone: [facility] 04-06-2024 14:10-0500 Body weight 136.53 kg Mena Ann PA Work Phone: [facility] 04-06-2024 14:10-0500 Diastolic blood pressure 80 mm[Hg] Mena Ann PA Work Phone: [facility] 04-06-2024 14:10-0500 Systolic blood pressure 128 mm[Hg] Mena Ann PA Work Phone: [facility] 03-22-2024 14:14-0500 Body mass index (BMI) [Ratio] 48.92 kg/m2 Tacho Shon DO Work Phone: [facility] 03-22-2024 14:14-0500 Body weight 137.49 kg Tacho Shon DO Work Phone: [facility] 03-22-2024 14:14-0500 Diastolic blood pressure 84 mm[Hg] Tacho Shon DO Work Phone: [facility] 03-22-2024 14:14-0500 Systolic blood pressure 126 mm[Hg] Tacho Shon DO Work Phone: [facility] 03-05-2024 23:11-0400 Diastolic blood pressure 78 mm[Hg] [facility] Work Phone: [facility] 03-05-2024 23:11-0400 Heart rate 90 /min [facility] Work Phone: [facility] 03-05-2024 23:11-0400 Respiratory rate 18 /min [facility] Work Phone: [facility] 03-05-2024 23:11-0400 SaO2% (BldA) [Mass fraction] 96 % [facility] Work Phone: [facility] 03-05-2024 23:11-0400 Systolic blood pressure 136 mm[Hg] [facility] Work Phone: [facility] 03-05-2024 19:59-0400 Body temperature 98.1 [degF] [facility] Work Phone: [facility] 03-05-2024 19:58-0400 Body height 167.64 cm [facility] Work Phone: [facility] 03-05-2024 19:58-0400 Body weight 136.55 kg [facility] Work Phone: [facility] 02-26-2024 19:50-0400 Body height 167.64 cm [facility] Work Phone: [facility] 02-26-2024 19:50-0400 Body temperature 97.8 [degF] [facility] Work Phone: [facility] 02-26-2024 19:50-0400 Body weight 136.98 kg [facility] Work Phone: [facility] 02-26-2024 19:50-0400 Diastolic blood pressure 91 mm[Hg] [facility] Work Phone: [facility] 02-26-2024 19:50-0400 Heart rate 103 /min [facility] Work Phone: [facility] 02-26-2024 19:50-0400 Respiratory rate 16 /min Services [facility] [employer] Work Phone: [facility] 02-26-2024 19:50-0400 SaO2% (BldA) [Mass fraction] 96 % Services [employer] Work Phone: [facility] 02-26-2024 19:50-0400 Systolic blood pressure 144 mm[Hg] [facility] Work Phone: [facility] 02-23-2024 14:01-0400 Body mass index (BMI) [Ratio] 48.76 kg/m2 Mena CARRILLO Work Phone: [facility] 02-23-2024 14:01-0400 Body weight 137.04 kg Mena CARRILLO Work Phone: [facility] 02-23-2024 14:01-0400 Diastolic blood pressure 82 mm[Hg] Mena CARRILLO Work Phone: [facility] 02-23-2024 14:01-0400 Systolic blood pressure 128 mm[Hg] Mena Ann PA Work Phone: [facility] 01-20-2024 13:58-0400 Body mass index (BMI) [Ratio] 48.1 kg/m2 Tacho Shon DO Work Phone: [facility] 01-20-2024 13:58-0400 Body weight 135.17 kg Tacho Shon DO Work Phone: [facility] 01-20-2024 13:58-0400 Diastolic blood pressure 74 mm[Hg] Tacho Shon DO Work Phone: [facility] 01-20-2024 13:58-0400 Systolic blood pressure 122 mm[Hg] Tacho Shon DO Work Phone: [facility] 10-06-2023 17:42-0400 Body height 167.64 cm [facility] Work Phone: [facility] 10-06-2023 17:42-0400 Body temperature 98.3 [degF] [facility] Work Phone: [facility] 10-06-2023 17:42-0400 Body weight 134 kg [facility] Work Phone: [facility] 10-06-2023 17:42-0400 Diastolic blood pressure 94 mm[Hg] [facility] Work Phone: [facility] 10-06-2023 17:42-0400 Heart rate 98 /min [facility] Work Phone: [facility] 10-06-2023 17:42-0400 Respiratory rate 18 /min [facility] Work Phone: [facility] 10-06-2023 17:42-0400 SaO2% (BldA) [Mass fraction] 100 % [facility] Work Phone: [facility] 10-06-2023 17:42-0400 Systolic blood pressure 142 mm[Hg] [facility] Work Phone: [facility] 09-17-2023 14:22-0400 Body height 167.[address] [facility] 09-17-2023 14:22-0400 Body mass index (BMI) [Ratio] 47.61 kg/m2 Anna Ortiz RD [facility] 09-17-2023 14:22-0400 Body weight 133.[address] [facility] 08-20-2023 13:05-0400 Body height 167.6 cm Tonya Senior [employer]MANAGER HE[employer] Work Phone: [facility] 08-20-2023 13:05-0400 Body weight 133.81 kg Tonya Parrish [employer]GER [employer] Work Phone: [facility] 08-07-2023 15:23-0400 Body height 168.91 cm [facility] [employer] Work Phone: [facility] 08-07-2023 15:23-0400 Body mass index (BMI) [Ratio] 46.9 kg/m2 [facility] [employer] Work Phone: [facility] 08-07-2023 15:23-0400 Body weight 133.89 kg [facility] [employer] Work Phone: [facility] 08-07-2023 15:23-0400 Diastolic blood pressure 83 mm[Hg] [facility] [employer] Work Phone: [facility] 08-07-2023 15:23-0400 Heart rate 101 /min [facility] [employer] Work Phone: [facility] 08-07-2023 15:23-0400 Respiratory rate 18 /min [facility] [employer] Work Phone: [facility] 08-07-2023 15:23-0400 SaO2% (BldA) [Mass fraction] 98 % [facility] [employer] Work Phone: [facility] 08-07-2023 15:23-0400 Systolic blood pressure 120 mm[Hg] [facility] [employer] Work Phone: [facility] 06-13-2023 11:00-0500 Body height 168.28 cm Nicholas Michaels Other [facility] 06-13-2023 11:00-0500 Body mass index (BMI) [Ratio] 48.53 kg/m2 Nicholas Michaels Other [employer] Other 06-13-2023 11:00-0500 Body weight 137.44 kg Nicholas Michaels Other [employer] Other 06-13-2023 11:00-0500 Body weight 137.43 kg [facility] [employer] Work Phone: [facility] 06-13-2023 11:00-0500 Diastolic blood pressure 82 mm[Hg] Nicholas Michaels Other [facility] 06-13-2023 11:00-0500 Respiratory rate 18 /min Nicholas Michaels Other [employer] Other 06-13-2023 11:00-0500 SaO2% (BldA) [Mass fraction] 97 % Nicholas Michaels Other [employer] Other 06-13-2023 11:00-0500 Systolic blood pressure 120 mm[Hg] Nicholas Michaels Other [facility] 01-08-2023 10:45-0400 Body height 168.28 cm Nicholas Michaels Other [employer] Other 01-08-2023 10:45-0400 Body mass index (BMI) [Ratio] 52.89 kg/m2 Nicholas Michaels Other [employer] Other 01-08-2023 10:45-0400 Body weight 149.78 kg Nicholas Michaels Other [employer] Other 01-08-2023 10:45-0400 Diastolic blood pressure 81 mm[Hg] Nicholas Michaels Other [employer] Other 01-08-2023 10:45-0400 Respiratory rate 18 /min Nicholas Michaels Other [employer] Other 01-08-2023 10:45-0400 SaO2% (BldA) [Mass fraction] 97 % Nicholas Michaels Other [employer] Other 01-08-2023 10:45-0400 Systolic blood pressure 122 mm[Hg] Nicholas Michaels Other [employer] Other 06-18-2022 16:57-0500 Body height 167.64 cm [facility] Work Phone: [facility] 06-18-2022 16:57-0500 Body weight 157 kg [facility] Work Phone: [facility] 06-18-2022 16:56-0500 Body temperature 98.3 [degF] [facility] Work Phone: [facility] 06-18-2022 16:56-0500 Diastolic blood pressure 67 mm[Hg] [facility] Work Phone: [facility] 06-18-2022 16:56-0500 Heart rate 95 /min [facility] Work Phone: [facility] 06-18-2022 16:56-0500 Respiratory rate 20 /min [facility] Work Phone: [facility] 06-18-2022 16:56-0500 SaO2% (BldA) [Mass fraction] 97 % [facility] Work Phone: [facility] 06-18-2022 16:56-0500 Systolic blood pressure 158 mm[Hg] [facility] Work Phone: [facility] 12-02-2021 20:26-0400 Body height 167.64 cm Services [facility] Work Phone: [facility] 12-02-2021 20:26-0400 Body temperature 98.2 [degF] Services [facility] Work Phone: [facility] 12-02-2021 20:26-0400 Body weight 144.24 kg Services [facility] Work Phone: [facility] 12-02-2021 20:26-0400 Diastolic blood pressure 89 mm[Hg] Services [facility] Work Phone: [facility] 12-02-2021 20:26-0400 Heart rate 104 /min Services [facility] Work Phone: [facility] 12-02-2021 20:26-0400 Respiratory rate 20 /min Services [facility] Work Phone: [facility] 12-02-2021 20:26-0400 SaO2% (BldA) [Mass fraction] 96 % Services [facility] Work Phone: [facility] 12-02-2021 20:26-0400 Systolic blood pressure 156 mm[Hg] Services [facility] [employer] Work Phone: [facility] 06-19-2020 11:10-0500 BMI (Body Mass Index) 46.65 kg/m2 Bayron Bibiana DD-DZATS-Njukja 310 [facility] Work Phone: 06-19-2020 11:10-0500 Body weight 131.09 kg Bayron Bibiana BA-HITOY-Jebcny 310 IVF Work Phone: 06-19-2020 11:10-0500 BSA (Body Surface Area) 2.34 m2 Bayron Bibiana KA-CMFTR-Mcvebw 310 IVF Work Phone: 06-19-2020 11:10-0500 Height 167.64 cm Bayron Mccarty YP-BXWCT-Yabjbq 310 IVF Work Phone: 06-19-2020 11:10-0500 1 1 Bayron Mccarty BA-JPRUS-[id number] 310 IVF Work Phone: Comment on above: 06-19-2020 11:10-0500 0 1 Bayron Mccarty NU-DYEMP-Bauign 310 IVF Work Phone: Comment on above: Para Pain Scale Encounters Encounter Date Encounter Type Care Provider Facility Start: 05-26-2024 End: 05-26-2024 Office outpatient visit 15 minutes Tacho Shon DO Work Phone: [facility] Comment on above: Third trimester preg rosette; 38 weeks gestation of Start: 05-26-2024 End: 05-26-2024 Bamboo flowsheet Tacho Shon DO Work Phone: [facility] Start: 05-26-2024 End: 05-26-2024 Bamboo flowsheet Tacho Shon DO Work Phone: [facility] Start: 05-25-2024 End: 05-25-2024 Clinisync Result Encounter Tacho Shon DO Work Phone: [facility] Unsolicited Start: 05-25-2024 End: 05-25-2024 Clinisync Result Encounter Tacho Shon DO Work Phone: [facility] Unsolicited Start: 05-17-2024 End: 05-17-2024 Departed Referred Services [facility] Work Phone: [facility] Start: 05-17-2024 End: 05-17-2024 Office outpatient visit 15 minutes Tacho Shon DO Work Phone: [facility] Comment on above: 37 weeks gestation o f ; Third trimester Start: 05-17-2024 End: 05-17-2024 ambulatory [facility] Work Phone: [facility] Work Phone: Start: 05-17-2024 End: 05-17-2024 Bamboo [...] Start: 04-27-2024 End: 04-27-20[facility] Start: 04-22-2024 End: 04-22-2024 Bamboo flowsheet [...] 04-06-2024 Bamboo flowsheet Mena CARRILLO Work Phone: [facility] Start: 04-06-2024 End: 04-06-2024 Bamboo flowsheet Mena CARRILLO Work Phone: [facility] Start: 04-06-2024 End: 04-06-2024 Office outpatient visit 15 minutes Mena CARRILLO Work Phone: [facility] Comment on above: Third trimester preg rosette; 31 weeks gestation of ; H/O premature delivery Start: 04-06-2024 End: 04-06-2024 ambulatory MENA ANN Not Available Start: 03-30-2024 End: 03-30-2024 [facility] Start: 03-22-2024 End: 03-22-2024 Bamboo flowsheet Tacho Shon DO Work Phone: [facility] Start: 03-22-2024 End: 03-22-2024 Bamboo flowsheet Tacho Shon DO Work Phone: [facility] Start: 03-22-2024 End: 03-22-2024 Office outpatient visit 15 minutes Tacho Shon DO Work Phone: [facility] Comment on above: Third trimester preg rosette; 29 weeks gestation of Start: 03-22-2024 End: 03-22-2024 ambulatory TACHO SHON Not Available Start: 03-19-2024 End: 03-19-2024 Clinisync Result Encounter Mena CARRILLO Work Phone: [facility] External Department Unsolicited Start: 03-19-2024 End: 03-19-2024 Clinisync Result Encounter Mena CARRILLO Work Phone: [facility] External Department Unsolicited Start: 03-05-2024 End: 03-05-2024 Emergency department patient visit Services [facility] Work Phone: [facility] Work Phone: Start: 03-01-2024 End: 03-01-2024 Orders Only Veda Hayes RN Maternal- Medic ine at [facility] Comment on above: Encounter for follow -up ultrasound of anatomy (Primary Dx); History of pre-eclampsia in prior , currently ; History of delivery, currently ; Obesity affecting in second trimester, unspecified obesity type Start: 02-26-2024 End: 02-26-2024 Emergency department patient visit Services [facility] Work Phone: [facility] Work Phone: Start: 02-23-2024 End: [...] Not Available Start: 02-17-2024 End: 02-17-2024 ambulatory [facility] Start: 01-26-2024 End: 01-26-2024 Clinisync Result Encounter Tacho Shon DO Work Phone: [facility] Unsolicited Start: 01-26-2024 End: 01-26-2024 Clinisync Result Encounter Atcho Shon DO Work Phone: [facility] Unsolicited Start: 01-20-2024 End: 01-20-2024 Office outpatient visit 15 minutes Tacho Shon DO Work Phone: [facility] Comment on above: Second trimester pre gnancy Start: 01-20-2024 End: 01-20-2024 ambulatory TACHO VALIENTEO Not Available Start: 01-19-2024 End: 01-19-2024 ambulatory TACHO MENENDEZ [facility] Start: 12-23-2023 End: 12-23-2023 ambulatory MENA ANN Not Available Start: 11-25-2023 End: 11-25-2023 ambulatory TACHO VALIENTEO Not Available Start: 10-30-2023 End: 10-30-2023 ambulatory TACHO SHON Not Available Start: 10-09-2023 End: 10-09-2023 ambulatory LATONIA GREENE Facility:[facility] Start: 10-06-2023 End: 10-06-2023 Emergency department patient visit Services [facility] Work Phone: [facility] Work Phone: Start: 09-17-2023 End: 09-17-2023 ambulatory ANNA PEREZ Facility:[facility] Start: 09-17-2023 End: 09-17-2023 Nutrition therapy Anna Ortiz [facility] Comment on above: Obesity, Class III, BMI 40-49.9 (morbid obesity) (HCC) (Primary Dx); Dietary counseling Start: 09-17-2023 End: 09-17-2023 Telemedicine consultation with patient Anna Ortiz RD Nutrition Therapy Start: 09-15-2023 Admission to [facility] Tonya Senior APRN.MANAGER HEALTH Work Phone: General Surgery Comment on above: Results Start: 09-15-2023 E-mail encounter dena m caregiver Tonya Senior APRN.MANAGER HEALTH Work Phone: General Surgery Start: 09-11-2023 Telephone encounter Tonya Senior APRN.MANAGER HEALTH Work Phone: General Surgery Comment on above: Results Start: 09-08-2023 End: 09-08-2023 ambulatory TONYA SENIOR Facility:[facility] Start: 09-05-2023 End: 09-05-2023 ambulatory TONYA SENIOR Facility:[facility] Start: 09-01-2023 End: 09-02-2023 ambulatory LATONIA GREENE Facility:[facility] Start: 09-01-2023 End: 09-01-2023 Admission to same day surgery center Latonia Greene PhD Work Phone: General Surgery BMI PSYL Comment on above: NO SHOW (Primary Dx) Start: 09-01-2023 End: 09-01-2023 Telemedicine consultation with patient Latonia Lazaro Jerel PhD Work Phone: General Surgery BMI PSYL Start: 08-20-2023 Admission to same da y surgery center Tonya Senior [employer]MANAGER HEALTH Work Phone: General Surgery Comment on above: Welcome to Bariatric Surgery Start: 08-20-2023 E-mail encounter fro m caregiver Tonya Senior [employer]MANAGER HE[employer] Work Phone: [place] [phone] Start: 08-20-2023 End: 08-20-2023 ambulatory Tonya Senior [employer] Work Phone: General Surgery Comment on above: Body mass index (BMI ) of 50-59.9 in adult (HCC) (Primary Dx); Angel's thyroiditis; High blood cholesterol Start: 08-20-2023 End: 08-20-2023 Telemedicine consultation with patient Tonya Senior [employer].MANAGER HEALTH Work Phone: [facility] Start: 08-07-2023 End: 08-07-2023 ambulatory Services [facility] Work Phone: [facility] Work Phone: Start: 08-07-2023 End: 08-07-2023 Patient encounter procedure Services [facility] Work Phone: [facility] Work Phone: Start: 06-13-2023 Follow-up encounter Nicholas leon [facility] Start: 06-13-2023 Registered Recurring Services [facility] Work Phone: [facility] Work Phone: Start: 06-13-2023 End: 06-13-2023 ambulatory Services [facility] Other Start: 06-13-2023 End: 06-13-2023 Patient encounter procedure Services [facility] Work Phone: [facility]- Start: 01-08-2023 End: 01-08-2023 ambulatory Nicholas Michaels Other [facility] Other Start: 01-08-2023 Nutrition therapy Nicholas Michaels [facility] Start: 06-18-2022 End: 06-18-2022 Emergency department patient visit Services [facility] Work Phone: [facility] Work Phone: Start: 06-03-2022 End: 06-03-[address] TACHO MENENDEZ Facility: Start: 12-02-2021 End: 12-02-2021 Emergency department patient visit Services [facility] Work Phone: [facility] Start: 07-08-2020 Patient encounter procedure Bayron PAEZ-OBGYN-Risman 310 IVF Work Phone: Start: 07-05-2020 Patient encounter procedure Bayron Mccarty TZ-ELZYW-Iwifyo 310 IVF Work Phone: Start: 06-19-2020 Patient encounter procedure Bayron Mccarty BD-TLRHR-Rvbbsz 310 IVF Work Phone: Start: 04-14-2020 Patient encounter procedure Bayron Mccarty OF-OZZPE-Zlxwob 310 IVF Work Phone: Start: 03-28-2020 Patient encounter procedure Bayron Mccarty WL-EXDGZ-Wdjqfo 310 IVF Work Phone: Start: 2020 Patient encounter procedure Bayron Mccarty QY-QQJEW-Nvmqxl 310 IVF Work Phone: Start: 01-24-2020 Patient encounter procedure Bayron Mccarty ZX-LGSVK-Isjkrc 310 IVF Work Phone: Start: 08-01-2017 End: 08-02-2017 Ambulatory Agustin Patton Facility:[id number] Start: 07-14-2017 End: 07-15-2017 Ambulatory Agustin Patton Facility:[id number] Procedures Date Procedure Procedure Detail Performing Clinician Start: 05-25-2024 ALL CBC WITH AUTO DIFF Tacho Shon DO Work Phone: Start: 05-17-2024 Urnls dip stick/tabl et rgnt [...] Start: 03-05-2024 Plain chest X-ray Servi malina [facility] Work Phone: Start: 03-05-2024 Respiratory Panel (PCR) Services [facility] Work Phone: Start: 03-05-2024 Respiratory Panel (PCR) Services [facility] Work Phone: Start: 03-05-2024 Streptococcus pyogen es antigen assay Services [facility] Phone: Start: 02-26-2024 Streptococcus pyogen es antigen assay [facility] Phone: Start: 02-23-2024 Urnls dip stick/tabl et rgnt non-auto w/o micrscp Mena Marissa PA Work Phone: Start: 01-26-2024 ALL THYROID STIM HORMONE Tacho Valienteo DO Work Phone: Start: 01-20-2024 Urnls dip stick/tabl et rgnt non-auto w/[facility]scp [facility] Work [facility]: Start: 12-23-2023 Microscopic observat ion [Identifier] in Cervix by Cyto stain [employer]acho [employer] Work Phone: Start: 07-06-2020 Antibody screen Comment on above: Performed By: #### T +S #### [facility] [address] [place] [address] Start: 07-05-2020 IO Ultrasound, limit ed pelvic, follicle monitoring Bayron Mccarty Start: 06-26-2020 IO Ultrasound, limit ed pelvic, follicle monitoring Bayron Mccarty Start: 05-10-2020 Assay of progesterone Yonathan Mccarty Adenoid excision Bayron wallace Cholecystectomy Bayron Chen ey SARS Antigen (LFIA) Services [facility] Phone: Plan of Treatment Date Care Activity Detail Author Start: 12-22-2028 Screening for malign ant neoplasm of cervix [facility] Start: 12-22-2026 Screening for malign ant neoplasm of cervix [facility] Start: 03-01-2025 End: 03-01-2025 US MFM with or without consult US MFM with or without consult Imaging Routine Encounter for follow-up ultrasound of anatomy History of pre-eclampsia in prior , currently History of delivery, currently Obesity affecting in second trimester, unspecified obesity type Expected: 03/01/2025 (Approximate), Expires: 03/01/2025 [employer] Work Phone: Comment on above: Expected: 03/01/2025 (Approximate), Expires: 03/01/2025 Start: 01-18-2025 Adult BMI Screening Adult BMI Screen ing [facility] Start: 01-18-2025 Tobacco Screening Tobacco Screening [facility] Start: 05-27-2024 End: 05-27-2024 Patient encounter procedure 05/27/2024 10:20 AM EST Routine [facility] [address] [place] [id number] Tacho Menendez DO [address] [place] [address] [facility] Start: 05-26-2024 End: 05-26-2024 Patient encounter procedure [facility] Comment on above: Arrived Start: 05-17-2024 Following clinical pathway protocol [facility] Start: 05-17-2024 End: 05-17-2024 Patient [...] Culture Group B Streptococcus Culture [facility] Start: 05-03-2024 End: 05-03-2024 Patient encounter procedure 05/03/2024 2:50 PM EST Routine [facility] [address] [place] [id number] Mena Ann PA [address] [place], [place] [id number] [facility] Start: 04-22-2024 End: 04-22-2025 [...] PM EST Routine [facility] [address] [place] [phone] Mena Ann PA [address] [place] [address] [facility] Start: 03-30-2024 End: 03-30-2024 Patient encounter procedure 03/30/2024 2:45 PM EST Appointment [facility] [address] [place] [id number] [facility] Start: 03-22-2024 End: 03-22-2024 Patient encounter procedure 03/22/2024 1:50 PM EST Routine [facility] [address] [place] [address] Tacho Menendez DO [address] [place], [place] [id number] [facility] Start: 03-22-2024 End: 03-22-2024 Professional / ancillary services management 03/22/2024 1:00 PM EST Ancillary Procedure [facility] [address] [place] [id number] [facility] Start: 03-16-2024 End: 03-16-2024 Patient encounter procedure 03/16/2024 1:30 PM EST Routine [facility] [address] [place] [phone] Tacho Menendez DO [address] [facility] [address] [place], [place] [id number] [facility] Start: 02-23-2024 End: 02-22-2025 CBC panel - Blood by Automated count CBC Lab Routine Diabetes mellitus screening Expected: 02/23/2024 (Approximate), Expires: 02/22/2025 [facility] Work Phone: Comment on above: Expected: 02/23/2024 (Approximate), Expires: 02/22/2025 Start: 02-23-2024 End: 02-22-2025 Measurement of glucose 1 hour after glucose challenge for glucose tolerance test Glucose tolerance, 1 hour Lab Routine Diabetes mellitus screening Expected: 02/23/2024 (Approximate), Expires: 02/22/2025 [facility] Healthcare Comment on above: Expected: 02/23/2024 (Approximate), Expires: 02/22/2025 Start: 02-23-2024 End: 02-22-2025 US for US OB SCAN FOR GROWTH Imaging Routine size inconsistent with dates H/O premature delivery Expected: 02/23/2024 (Approximate), Expires: 02/22/2025 [facility] Comment on above: Expected: 02/23/2024 (Approximate), Expires: 02/22/2025 Start: 02-23-2024 End: 02-23-2024 Patient encounter procedure 02/23/2024 1:40 PM EDT Routine [facility] [address] [place] [id number] Mena Ann PA [address] [facility] [address] [place], [place] [id number] Arrived [facility] Comment on above: Arrived Start: 02-18-2024 End: 02-18-2024 Patient encounter procedure 02/18/2024 2:30 PM EDT Routine [facility] [address] [place] [id number] Mena Ann PA [address] [facility] [place] [address] [facility] Start: 01-11-2024 COVID-19 Vaccine ( season) COVID-19 Vaccine () [facility] Start: 01-11-2024 Influenza vaccination [facility] Start: 09-17-2023 End: 09-17-2023 Nutrition therapy 09/17/2023 2:30 PM EDT [facility] Nutrition Therapy [address] [place] [id number] Anna Ortiz, SARMAD [address] [place] [address] Red/Davis/0 Diet/[place] [facility] Comment on above: Red/Davis/0 Diet/ [place] Start: 09-12-2023 End: 09-12-2023 Admission to same day surgery center 09/12/2023 3:30 PM EDT [facility] General Surgery [address] [id number] Joo Bradley MD [address] [place] [address] Red/Kirk/0 Diet/[place] [facility] Comment on above: Red/Kirk/0 Diet/Anth em Start: 09-05-2023 End: 09-05-2023 ambulatory 09/05/2023 11:45 AM EDT Results Only [facility] [address] [place] [address] [place] [address] [facility] Start: 08-20-2023 End: 11-19-2023 25-hydroxyvitamin D3 [Mass/volume] in Serum or Plasma VITAMIN D 25 HYDROXY Lab Routine Body mass index (BMI) of 50-59.9 in adult ([facility]) Expected: 08/20/2023, Expires: 11/19/2023 [facility] Work Phone: Comment on above: Expected: 08/20/2023 , Expires: 11/19/2023 Start: 08-20-2023 End: 11-19-2023 CBC W Auto Differential panel - Blood COMPLETE BLOOD COUNT AND DIFFERENTIAL Lab Routine Body mass index (BMI) of 50-59.9 in adult ([facility]) Expected: 08/20/2023, Expires: 11/19/2023 [facility] Work Phone: Comment on above: Expected: 08/20/2023 , Expires: 11/19/2023 Start: 08-20-2023 End: 11-19-2023 Cobalamin (Vitamin B12) [Mass/volume] in Serum or Plasma VITAMIN B12 Lab Routine Body mass index (BMI) of 50-59.9 in adult ([facility]) Expected: 08/20/2023, Expires: 11/19/2023 [facility] Work Phone: Comment on above: Expected: 08/20/2023 , Expires: 11/19/2023 Start: 08-20-2023 End: 11-19-2023 Comprehensive metabolic 2000 panel - Serum or Plasma COMPREHENSIVE METABOLIC PANEL Lab Routine High blood cholesterol Body mass index (BMI) of 50-59.9 in adult ([facility]) Expected: 08/20/2023, Expires: 11/19/2023 [facility] Work Phone: Comment on above: Expected: 08/20/2023 , Expires: 11/19/2023 Start: 08-20-2023 End: 11-19-2023 Ferritin [Mass/volume] in Serum or Plasma FERRITIN Lab Routine Body mass index (BMI) of 50-59.9 in adult ([facility]) Expected: 08/20/2023, Expires: 11/19/2023 [facility] Work Phone: Comment on above: Expected: 08/20/2023 , Expires: 11/19/2023 Start: 08-20-2023 End: 11-19-2023 Folate [Mass/volume] in Serum or Plasma FOLATE, SERUM Lab Routine Body mass index (BMI) of 50-59.9 in adult ([facility]) Expected: 08/20/2023, Expires: 11/19/2023 [facility] Work Phone: Comment on above: Expected: 08/20/2023 , Expires: 11/19/2023 Start: 08-20-2023 End: 11-19-2023 Helicobacter pylori IgG Ab [Presence] in Serum or Plasma by Immunoassay H PYLORI IGG AB Lab Routine Body mass index (BMI) of 50-59.9 in adult ([facility]) Expected: 08/20/2023, Expires: 11/19/2023 [facility] Work Phone: Comment on above: Expected: 08/20/2023 , Expires: 11/19/2023 Start: 08-20-2023 End: 11-19-2023 Hemoglobin A1c in Blood HEMOGLOBIN A1C Lab Routine Body mass index (BMI) of 50-59.9 in adult ([facility]) Expected: 08/20/2023, Expires: 11/19/2023 [facility] Work Phone: Comment on above: Expected: 08/20/2023 , Expires: 11/19/2023 Start: 08-20-2023 End: 11-19-2023 Iron and Iron binding capacity panel - Serum or Plasma IRON AND TIBC Lab Routine Body mass index (BMI) of 50-59.9 in adult ([facility]) Expected: 08/20/2023, Expires: 11/19/2023 [facility] Work Phone: Comment on above: Expected: 08/20/2023 , Expires: 11/19/2023 Start: 08-20-2023 End: 11-19-2023 Lipid 1996 panel - Serum or Plasma LIPID PANEL BASIC Lab Routine High blood cholesterol Body mass index (BMI) of 50-59.9 in adult ([facility]) Expected: 08/20/2023, Expires: 11/19/2023 [facility] Work Phone: Comment on above: Expected: 08/20/2023 , Expires: 11/19/2023 Start: 08-20-2023 End: 11-19-2023 Natriuretic peptide.B prohormone N-Terminal [Mass/volume] in Serum or Plasma NT PRO BNP Lab Routine Body mass index (BMI) of 50-59.9 in adult ([facility]) Expected: 08/20/2023, Expires: 11/19/2023 [facility] Work Phone: Comment on above: Expected: 08/20/2023 , Expires: 11/19/2023 Start: 08-20-2023 End: 11-19-2023 NICOTINE & METAB, UR NICOTINE & METAB, UR Lab Routine Body mass index (BMI) of 50-59.9 in adult ([facility]) Expected: 08/20/2023, Expires: 11/19/2023 [facility] Work Phone: Comment on above: Expected: 08/20/2023 , Expires: 11/19/2023 Start: 08-20-2023 End: 11-19-2023 Thyrotropin [Units/volume] in Serum or Plasma THYROID STIMULATING HORMONE Lab Routine Angel's thyroiditis Body mass index (BMI) of 50-59.9 in adult ([facility]) Expected: 08/20/2023, Expires: 11/19/2023 [facility] Work Phone: Comment on above: Expected: 08/20/2023 , Expires: 11/19/2023 Start: 08-20-2023 End: 11-19-2023 TOXICOLOGY SCREEN, ROUTINE URINE TOXICOLOGY SCREEN, ROUTINE URINE Lab Routine Body mass index (BMI) of 50-59.9 in adult ([facility]) Expected: 08/20/2023, Expires: 11/19/2023 [facility] Work Phone: Comment on above: Expected: 08/20/2023 , Expires: 11/19/2023 Start: 08-20-2023 End: 11-19-2023 VITAMIN B1 (THIAMINE), WHOLE BLOOD VITAMIN B1 (THIAMINE), WHOLE BLOOD Lab Routine Body mass index (BMI) of 50-59.9 in adult ([facility]) Expected: 08/20/2023, Expires: 11/19/2023 [facility] Work Phone: Comment on above: Expected: 08/20/2023 , Expires: 11/19/2023 Start: 05-12-2023 Behavioral Health Screening Behavioral Health Screening [facility] Start: 01-10-2023 Covid-19 Vaccine ( season) Covid-19 Vaccine ( season) [facility] Start: 12-02-2021 Plain chest X-ray XR chest 1V portab le [facility] Start: 12-02-2021 XR Chest Single view [facility] Work Phone: Start: 2021 Screening for malign ant neoplasm of cervix HPV Testing [facility] Start: 2012 Screening for malign ant neoplasm of cervix Pap Testing [facility] Start: 2010 Hepatitis B Vaccine (1 of 3 - 19+ 3-dose series) Hepatitis B Vaccine (1 of 3 - 19+ 3-dose series) [facility] Start: 2009 Adult BMI Follow Up Plan Adult BMI Follow Up Plan [facility] Start: 2009 HIV screening HIV Screening [facility] Start: 2003 Depression Screening Depression [facility] Start: 2002 DTaP,Tdap and Td Vaccines (6 - Tdap) DTaP,Tdap and Td Vaccines (6 - Tdap) [facility] Start: 2002 Urine microalbumin profile DTaP,Tdap,Td Vaccine (6 - Tdap) [facility] End: 08-19-2024 ECG COMPLETE ECG COMPLETE ECG Routine Body mass index (BMI) of 50-59.9 in adult (HCC) 1 Occurrences starting 08/20/2023 until 08/19/2024 [facility] Work Phone: Comment on above: 1 Occurrences starti ng 08/20/2023 until 08/19/2024 Patient Education [facility] Work Phone: Patient referral [facility] Work Phone: Thyrotropin [Units/volume] in Serum or Plasma TSH Lab Routine Thyroid disease (CMS/HCC) Ordered: 04/22/2024 [facility] Comment on above: Ordered: 04/22/2024 End: 09-18-2024 US Abdomen RUQ US ABD RIGHT UPPER QUADRANT Radiology Routine Body mass index (BMI) of 50-59.9 in adult (HCC) 1 Occurrences starting 08/20/2023 until 09/18/2024 [facility] Work Phone: Comment on above: 1 Occurrences starti ng 08/20/2023 until 09/18/2024 End: 09-18-2024 XR Chest PA and Lateral XR CHEST 2V FRONTAL/LAT Radiology Routine Body mass index (BMI) of 50-59.9 in adult (HCC) 1 Occurrences starting 08/20/2023 until 09/18/2024 [facility] Work Phone: Comment on above: 1 Occurrences starti ng 08/20/2023 until 09/18/2024 [id number] 310 [facility] Work Phone: [facility] c NEGATED: Highlighted row has been ruled out! Planned Goals not documented [id number] 310 IV[facility] Work Phone: Immunizations Immunization Date Immunization Notes Care Provider Sonia miramontes 03-11-2023 influenza virus vacc ine, unspecified formulation Tacho Menendez DO Work Phone: [facility] Payers Date Payer Category Payer Self-pay [id number] 2022 Medicaid [id number] 2022 Medicaid [id number] [id number] 1991 Unknown [id number] 2.16.840.1.207849.3.579.2.59 3 1991 Unknown [id number] 2.16.840.1.262401.3.579.2.12 86 1991 Unknown [id number] 2.16.840.1.649233.3.579.2.12 86 1991 Unknown [id number] 2.16.840.1.551079.3.579.2.12 86 1991 Unknown [id number] 2.16.840.1.159881.3.579.2.12 86 1991 Unknown [id number] 2.16.840.1.869491.3.579.2.12 86 1991 Unknown [id number] 2.16.840.1.586046.3.579.2.12 59 1991 Unknown [id number] 2.16.840.1.537256.3.579.2.12 59 1991 Unknown [id number] 2.16.840.1.240957.3.579.2.12 59 1991 Unknown [id number] 2.16.840.1.809351.3.579.2.12 59 1991 Unknown [id number] 2.16.840.1.552336.3.579.2.12 59 1991 Unknown [id number] 2.16.840.1.343076.3.579.2.12 59 1991 Unknown [id number] 2.16.840.1.929915.3.579.2.12 59 1991 Unknown [id number] 2.16.840.1.541166.3.579.2.12 59 1991 Unknown [id number] 2.16.840.1.437497.3.579.2.12 59 1991 Unknown [id number] 2.16.840.1.817917.3.579.2.12 59 1959 Medicaid [id number] Private Health Insurance [facility] [id number] Unknown [id number] Unknown Regular Insurance [id number] Unknown [employer] [id number] Unknown Regular Auto/Medical [id number] Unknown [id number] 2.16.840.1.646687.3.579.2.53 1 Unknown [id number] 2.16.840.1.718402.3.579.2.53 1 Unknown [id number] 2.16.840.1.075955.3.579.2.53 1 Unknown [id number] 2.16.840.1.634835.3.579.2.53 1 Unknown [id number] 2.16.840.1.094430.3.579.2.53 1 Social History Date Type Detail Facility Start: 12-02-2021 End: 05-17-2023 Tobacco smoking status NHIS Never smoked tobacco (finding) [facility] Start: 1990 Sex Assigned At Female F [facility] Start: 08-20-2023 End: 10-30-2023 Sex Assigned At [facility] Start: 05-17-2023 End: 08-20-2023 Tobacco use and exposure Smokeless tobacco non-user [facility] Work Phone: Start: 08-20-2023 End: 05-26-2024 Alcohol intake Current drinker of alcohol (finding) [facility] Start: 08-20-2023 End: 10-30-2023 History of Social function [facility] National Score (1-100), lower number is lower risk 86 [facility] Start: 08-20-2023 Alcohol Comment occ [facility] Start: 1990 Sex Assigned At Not on file [facility] Start: 08-26-2023 Gender identity Identifies as female gender (finding) [facility] Start: 08-26-2023 Sexual orientation Heterosexual (fin kayleen) [facility] Start: 09-14-2023 [facility] How often to you hav [...] Alcoholic beverage intake Ex-drinker (finding) [facility] Start: 12-13-2014 End: 05-19-2024 Sex Female (finding) [facility] NEGATED: Highlighted row - - [id number] 310 IVF Work Phone: Functional Status Date Assessment Result Facility NEGATED: Highlighted row Functional performance Functional status health issues are not documented Disease [id number] 310 IV[facility] Work Phone: Mental Status Date Assessment Result Facility NEGATED: Highlighted row Cognitive function [Interpretation] Cognitive status health issues are not documented Disease [id number] 310 IV[facility] Work Phone: Clinical Notes 01-08-2023 to 05-26-2024 Priscilla Fernandez LPN - 05/26/2024 2:10 PM Craig Mcbride LIGHTING FIXTURES DECORATOR - 05/17/2024 3:10 PM GERARDO Hunter - 05/03/2024 2:50 PM Fawad Fernandez LPN - 04/22/2024 9:40 AM ESTPatient Instructions Note Date & Type Note Facility 05-26-2024 History of Presen t illness Narrative Reason for Appointment: Patient ID: Jaleesa Arrieta is a 34 y.o. female who presents for Routine Visit Patient presents today for Return OB appointment. MEDICATIONS Current Outpatient Medications Medication Instructions levothyroxine (Synthroid, Levoxyl) 50 MCG tablet TAKE 1/2 TABLET BY MOUTH IN THE MORNING BEFORE A MEAL magnesium oxide (MAG-OX) [...] Morbid obesity with BMI of 50.0-59.9, adult (CMS/[facility]) Vaginal delivery Social History Tobacco Use [...] SURGICAL HISTORY 2020 IUI 07/10/20 [facility] SALPINGECTOMY Left 2012 ectopic REVIEW OF SYSTEMS [...] nursing note reviewed. Exam conducted with a protective signal operator present. Vitals: Estimated body mass index is 49.57 kg/m as calculated from the following: Height as of 08/26/22: 5' 6 . Weight as of this encounter: 307 lb 1.9 oz. BP: 126/82 Patient's last menstrual period was 08/24/2023. ASSESSMENT & PLAN ICD-10-CM 1. Third trimester Z34.93 2. 38 weeks gestation of Z3A.38 Return OB: Patient presents today for a routine obstetrics appointment. Patient is currently 38w3d . Patient states she is doing well but has complaints of being tired due to current . Patient has verbalizes frequent movement. labor precautions was discussed/given and patient was instructed to perform kick counts three times a day. Induction on 05/31/24- cervidil at 1700. No orders of the defined types were placed in this encounter. Follow Up: Patient is to return to office in 1 week for routine OB appointment. Documented by Priscilla Fernandez LPN on behalf of: Tacho Menendez DO documented in this encounter [facility] 05-17-2024 History of Presen t illness Narrative [...] Morbid obesity with BMI of 50.0-59.9, adult ([facility]) Vaginal delivery Social History Tobacco Use [...] SURGICAL HISTORY 2020 IUI 07/10/20 [facility] SALPINGECTOMY Left 2011 ectopic REVIEW OF SYSTEMS [...] nursing note reviewed. Exam conducted with a protective signal operator present. Vitals: Estimated body mass index [...] Tacho Menendez DO documented in this encounter [facility] 05-03-2024 History of Presen t [...] Morbid obesity with BMI of 50.0-59.9, adult ([facility]) Vaginal delivery Social History Tobacco Use [...] SURGICAL HISTORY 2020 IUI 07/10/20 [facility] SALPINGECTOMY Left 2011 ectopic REVIEW OF SYSTEMS [...] of: GERARDO Vazquez documented in this encounter [facility] 04-22-2024 History of Presen t [...] SURGICAL HISTORY 2020 IUI 07/10/20 [facility] SALPINGECTOMY Left 2011 ectopic REVIEW OF SYSTEMS [...] nursing note reviewed. Exam conducted with a protective signal operator present. Vitals: Estimated body mass index [...] Tacho Menendez DO documented in this encounter [facility] 04-06-2024 History of Presen [...] Morbid obesity with BMI of 50.0-59.9, adult (CMS/[facility]) Vaginal delivery Social History Tobacco Use [...] SURGICAL HISTORY 2020 IUI 07/10/20 [facility] SALPINGECTOMY Left 2011 ectopic REVIEW OF SYSTEMS [...] of: GERARDO Vazquez documented in this encounter [facility] 03-22-2024 History of Presen [...] Morbid obesity with BMI of 50.0-59.9, adult (CMS/[facility]) Vaginal delivery Social History Tobacco Use [...] SURGICAL HISTORY 2020 IUI 07/10/20 [facility] SALPINGECTOMY Left 2011 ectopic REVIEW OF SYSTEMS [...] nursing note reviewed. Exam conducted with a protective signal operator present. Vitals: Estimated body mass index [...] Tacho Menendez DO documented in this encounter [facility] 02-23-2024 History of Presen [...] SURGICAL HISTORY 2020 IUI 07/10/20 [facility] SALPINGECTOMY Left 2012 ectopic REVIEW OF SYSTEMS [...] nursing note reviewed. Exam conducted with a protective signal operator present. Vitals: Estimated body mass index [...] of: GERARDO Vazquez documented in this encounter [facility] 01-20-2024 History of Presen t [...] Morbid obesity with BMI of 50.0-59.9, adult ([facility]) Vaginal delivery HISTORY PAST MEDICAL HISTORY SOCIAL HISTORY Past Medical History: Diagnosis Date Abdominal pain Breast pain, right Cholelithiasis Encounter for cervical smear to confirm findings of recent normal smear following initial abnormal smear Angel's disease (CMS/HCC) Hypothyroidism (CMS/HCC) Morbid obesity ([facility]/HCC) Morbid obesity with BMI of 50.0-59.9, adult ([facility]) Vaginal delivery Social History Tobacco Use [...] SURGICAL HISTORY 2020 IUI 07/10/20 [facility] SALPINGECTOMY Left 2011 ectopic REVIEW OF SYSTEMS [...] nursing note reviewed. Exam conducted with a protective signal operator present. Vitals: Estimated body mass index [...] Pt has follow up appt at [facility] in four weeks. Pt to return to office in four weeks for scheduled OB appt. Documented by Priscilla Fernandez LPN on behalf of: Tacho Menendez DO documented in this encounter [facility] 10-09-2023 Note HNO ID: [id number] Author: LATONIA GREENE, PhD Service: ? Author Type: Psychologist Type: Progress Notes Filed: 10/17/2023 11:09 Note Text: [facility]IAT[facility]IC SURGERY BEHAVIORAL HEALTH EVALUATION BMI Surgical Pathway Visit type: Psychology Visit DATE OF SERVICE: October 09, 2023 TIME OF SERVICE: 1:00 PM - 2:00 PM [facility]ST CENTER: [facility] CPT CODE: - [id number] Virtual Psych Diagnostic Eval BILLING CODE: ENDO PSYL MAIN Jerel DATE OF FIRST SERVICE THIS CYCLE: October 09, 2023 SESSION #: 1 I have communicated my name and active licensure. The patient's identity and physical location (see below) were verified at the time of this visit. Either the patient or their legal client account representative has been informed of the risks and benefits of -- and alternatives to -- treatment through a remote evaluation and consents to proceed with the evaluation remotely. This evaluation is NOT intended for forensic, disability or child custody purposes. The patient e-signed a copy of the consent form via [employer] and the [facility] insurance [...] is provider to call Platform: Zoom for [employer] Patient confirmed address and contact information in EMR in case of emergency and/or disconnection. [address] [place] [address] ([facility], was mother) Alternate Department Of Mathematics Chair Bibi Arrieta (Mother) [phone] (Home Phone) Patient identified the following plan to follow in case of emergency: Go to emergency room (nearest is [facility]) or call 911. IDENTIFYING INFORMATION: [...] pt has l (more content not included)... [facility] 09-22-2023 Telephone encounter Note Can not schedule patient as there is already a patient scheduled for that day and time. Please advise. Thanks Meme Castrejon [facility] 09-22-2023 Telephone encounter Note ----- Message from Anna Ortiz RD sent at 09/17/2023 3:17 PM EDT ----- Regarding: virtual follow up Please schedule for a virtual up 10/16 at 1. The patient is aware, no call needed. Thank you! Anna [facility] 09-22-2023 Miscellaneous Notes Can not [...] Tonya Senior APRN.MERON documented in this encounter [facility] 09-17-[address] - 09/17/2023 3:12 PM EDT 1. Read Nutritional Guidelines Section of Your Guide to Surgery by next session [email or web address] 2. Do not skip [...] full-liquid diet. Examples: Slim Fast Advanced Nutrition [place] Breakfast Essentials Light Start Drink mixed with [...] Bariatric Multivitamin and Calcium Citrate (total of 0268-7039 mg/day) * take calcium citrate separately from Multivitamin with iron at least 2 hours apart and 4 hours apart from additional calcium [email or web address] Me Up.CruiseWise - Bariatric Choice: 4 Complete Multivitamins (chewables) per day Www.[email or web address].[email or web address] - Bariatric Advantage: 2 Multivitamins and 3 Calcium Citrate Chewables per day * take calcium citrate separately from Multivitamin with iron at least 2 hours apart and 4 hours apart from additional calcium Www.[email or web address] Start practicing eating slowly, chewing each bite of food 20-30 x per bite, making meals last 20-30 minutes, separatign food and fluids by 30 minutes . Have all meals and snacks at the table with no distractions. Make placemat for reminders; work towards normal sleep/wake pattern Pre-op goal weight: 281 pounds Protein needs: 85 grams per day documented in this encounter [facility] 09-17-2023 Note HNO ID: [id number] Author: ANNA ORTIZ RD Service: ? Author Type: Registered Dietitian Type: Progress Notes Filed: 09/17/2023 15:19 Note Text: [facility] Nutrition Therapy: Virtual Consult - Initial Assessment I have communicated my name and active licensure. The patient?s identity and physical location were verified at the time of this visit. Either the patient or their legal client account representative has been informed of the risks [...] Your Guide to Surgery by next session [email or web address] hospital.org/ -/scassets/files/org/[email or web address]/ guides/[email or web address]?la=en 2. Do not skip [...] Examples: ? Slim Fast Advanced Nutrition ? [place] Breakfast Essentials ?Light Start? Drink mixed with [...] AM, 2 in the PM) www.bariatricfusion.com - Rocketrip: 1 Bariatric Multivitamin and Calcium Citrate (total of 3867-9091 mg/day) * take calcium citrate separately from Multivitamin with iron at least 2 hours apart and 4 hours apart from additional calcium www.Mobile Experience.CruiseWise - Bariatric Choice: 4 Complete Multivitamins (chewables) per day Www.bariatricchoice.com - Bariatric Advantage: 2 Multivitamins and 3 Calcium Citrate Chewables per day * take calcium citrate separately from Multivitamin with iron at least 2 hours apart and 4 hours apart from additional calcium Www.bariatricadvantage.CruiseWise Start practicing eating slowly, chewing each bite [...] and using Phen (more content not included)... [facility] 09-17-2023 History of Presen t illness Narrative [facility] Nutrition Therapy: Virtual Consult - Initial Assessment I have communicated my name and active licensure. The patient s identity and physical location were verified at the time of this visit. Either the patient or their legal client account representative has been informed of the risks [...] Your Guide to Surgery by next session [email or web address] -/[email or web address]/[email or web address]/ [email or web address] [email or web address]?la=en 2. Do not [...] full-liquid diet. Examples: Slim Fast Advanced Nutrition [place] Breakfast Essentials Light Start Drink mixed with [...] AM, 2 in the PM) www.bariatricfusion.com - Vertra Health: 1 Bariatric Multivitamin and Calcium Citrate (total of 7788-5777 mg/day) * take calcium citrate separately from Multivitamin with iron at least 2 hours apart and 4 hours apart from additional calcium www.Mobile Experience.CruiseWise - Bariatric Choice: 4 Complete Multivitamins (chewables) per day Www.bariatricchoice.com - Bariatric Advantage: 2 Multivitamins and 3 Calcium Citrate Chewables per day * take calcium citrate separately from Multivitamin with iron at least 2 hours apart and 4 hours apart from additional calcium Www.bariatricadZend Enterprise PHP Business Planage.CruiseWise Start practicing eating slowly, chewing each bite [...] suggested by 180 Initial weight: 295 lbs. [place] body weight is 155 lbs. Excess body weight is 140 lbs. Goal weight pre-op is 281 lbs. Protein needs are estimated at 85gm (1.2 - protein/kg IBW) Patient meets the National Institutes of Health guidelines for weight loss surgery and has [place] Insurance therefore is required to complete 0 [...] TIME: 2:25 PM documented in this encounter [facility] 09-11-2023 Telephone encounter Note Attempted to call pt, re: hypothyroid and low vitamin d levels, no answer, left vm. Tonya Senior APRN.MANAGER HEALTH [facility] 09-01-2023 Note HNO ID: [id number] Author: LATONIA GREENE, PhD Service: ? Author Type: Psychologist Type: Progress Notes Filed: 09/01/2023 13:22 Note Text: [facility] Progress Note 09/01/2023 Billing code: Jerel Patient did not attend, cancel, or reschedule this appointment. Provider left HIPAA compliant voicemail and MyChart message with contact information to reschedule. Latonia Greene, PhD Clinical Psychologist [facility] 09-01-2023 History of Presen t illness Narrative [facility] Progress Note 09/01/2023 Billing code: Jerel Patient did not attend, cancel, or reschedule this appointment. Provider left HIPAA compliant voicemail and MyChart message with contact information to reschedule. Latonia Greene, PhD Clinical Psychologist documented in this encounter [facility] 08-20-2023 Note HNO ID: [id number] Author: TONYA SENIOR APRN.CNP Service: ? Author Type: Nurse Practitioner Type: Progress Notes Filed: 08/20/2023 16:21 Note Text: have communicated my name and active licensure. The patient's identity and physical location were verified at the time of this visit. Either the patient or their legal client account representative has been informed of the risks and benefits of -- and alternatives to -- treatment through a remote evaluation and consents to proceed with the evaluation remotely. BMI MEDICAL CONSULT I have communicated my name and active licensure. The patient's identity and physical location were verified at the time of this visit. Either the patient or their legal client account representative has been informed of the risks [...] mass index (BMI) of 50-59.9 in adult ([facility]) 08/20/2023 Angel's thyroiditis 08/20/2023 High blood [...] mass index (BMI) of 50-59.9 in adult ([facility]) - ICD9: V85.43, ICD10: Z68.43 (primary diagnosis) Weight decreasing - Behavioral intervention, - Medical nutrition therapy with dietitian, and - Psychology - COMPLETE BLOOD COUNT AND DIFFERENTIAL - COMPREHENSIVE METABOLIC PANEL - FERRITIN - FOLATE, SERUM - HEMOGLOBIN A1C - (more content not included)... [facility] 08-20-2023 History of Presen t illness Narrative Images from the original note were not included. have communicated my name and active licensure. The patient's identity and physical location were verified at the time of this visit. Either the patient or their legal client account representative has been informed of the risks and benefits of -- and alternatives to -- treatment through a remote evaluation and consents to proceed with the evaluation remotely. BMI MEDICAL CONSULT I have communicated my name and active licensure. The patient's identity and physical location were verified at the time of this visit. Either the patient or their legal client account representative has been informed of the risks [...] mass index (BMI) of 50-59.9 in adult ([facility]) 08/20/2023 Angel's thyroiditis 08/20/2023 High blood [...] mass index (BMI) of 50-59.9 in adult ([facility]) - ICD9: V85.43, ICD10: Z68.43 (primary [...] - LIPID PANEL BASIC Tonya Senior APRN.MANAGER HEALTH -- Recommend that she should not become [...] Obesity Medicine Visit documented in this encounter [facility] 06-13-2023 Evaluation note Encounter Date [...] 8 weeks -Handed patient self referral to [facility] bariatric surgery program -Bdbvx-sa-adsm A1c December 2022 5.4%-Follow up in clinic in 8 weeksThis note was created with voice recognition software. Please excuse errors in forest fire officer. Jun, Dietary surveillance and counseling (ICD-10 - [...] for a goal of 5% weight reduction. [facility] Other 08-30-2023 Evaluation note* Encounter Date Diagnosis [...] on in the past and denies side qdipveq-Plpnk-xa-care A1c today 5.4%-Follow up in clinic in 4 weeksThis note was created with voice recognition software. Please excuse errors in forest fire officer. Dec, Dietary surveillance and counseling (ICD-10 - [...] with the patient, and documenting clinical information. [facility] Other chief complaint+Reason for visit Narrative* Chief Complaint Obesity Reason for Visit Exercise counseling Severe obesity (BMI >= 40) [facility] Work Phone: chief complaint+Reason for visit Narrative* Chief Complaint Pos test, Cramping, Vaginal bleeding Reason for Visit Exercise counseling Severe obesity (BMI >= 40) [facility] Work Phone: Evaluation noteNo assessment information available [facility] Work Phone: evaluation note* Diagnosis Onset Date Resolution Status Exercise counseling acute Severe obesity (BMI >= 40) delilah kevin [facility] Work Phone: evaluation note* Diagnosis Body mass index (BMI) of 50-59.9 in adult (HCC)- Primary Body Mass Index 50.0-59.9, adult Angel's thyroiditis Chronic lymphocytic thyroiditis High blood cholesterol Pure hypercholesterolemia [facility] Diagnosis NO SHOW- Primary [facility]* Diagnosis Obesity, Class III, BMI 40-49.9 (morbid obesity) ([facility])- Primary Morbid obesity Dietary counseling Dietary surveillance and counseling [facility]* Diagnosis Vitamin D deficiency- Primary Unspecified vitamin D deficiency [facility]* Diagnosis 25 weeks gestation of Second trimester state, incidental Diabetes mellitus screening Screening for diabetes mellitus size inconsistent with dates H/O premature delivery [facility] Encounter for follow-up ultrasound of anatomy- Primary History of pre-eclampsia in prior , currently with other poor obstetric history History of delivery, currently with history of pre-term labor Obesity affecting in second trimester, unspecified obesity type [facility] Diagnosis Third trimester state, incidental 29 weeks gestation of documented in this encounter [facility]* Diagnosis Third trimester state, incidental 31 weeks gestation of H/O premature delivery documented in this encounter [facility]* Diagnosis 33 weeks gestation of Third trimester state, incidental H/O premature delivery Thyroid disease (CMS/HCC) Unspecified disorder of thyroid H/O pre-eclampsia in prior , currently documented in this encounter [facility] Healthcare[facility] note* Diagnosis Second trimester state, incidental documented in this encounter [facility] Healthcare[facility]* Diagnosis 35 weeks gestation of Third trimester state, incidental documented in this encounter [facility] note* Diagnosis 37 weeks gestation of Third trimester state, incidental documented in this encounter [facility] HealthcareEvaluation note* Diagnosis Third trimester state, incidental 38 weeks gestation of documented in this encounter [facility] HealthcareHistory general Narrative - Reported* Type Description Date Surgical History adnoidectomy Surgical History gall bladder Surgical History L Fallopian tube removed Hospitalization History See Above [facility] Other Hospital Discharge instructions Additional Instructions You may take msxf-xao-nnsipjk cough and cold medication as needed You may take oqgp-nnq-ioffjid Tylenol and/or ibuprofen as needed Increase oral fluids Follow-up with family doctor as needed Return to the ER for any acute difficulty breathing high fever vomiting or any other [facility] Work Phone: Hospital Discharge instructions Additional Instructions Nothing into vagina until seen by BOOK CUTTER May take Tylenol for discomfort Increase oral fluids Follow-up with BOOK CUTTER Return to the ER for heavy bleeding greater than a pad an hour feeling dizzy lightheaded or any [facility] Discharge instructions Additional Instructions Follow-up with your OB in the next week.[facility] Work Phone: InstructionsNot on filedocumented in this encounter [facility] (n[facility] Diagnostic Procedure Only (Routine) - Pending Review Specialty Diagnoses / Procedures Referred By Wendy t Referred To Contact [facility] Diagnoses Body mass index (BMI) of 50-59.9 in adult (HCC) Procedures US ABD RIGHT UPPER QUADRANT US ABDOMINAL REAL TIME W/IMAGE LIMITED Tonya Senior APRN.MANAGER HEALTH [address] [place] [address] [place] [id number] Referral ID Status Reason Start Date Expiration Date Visits Requested Visits Authorized [id number] Pending Review Auto-Generat ed Referral 08/20/2023 09/18/2024 1 1 * Outpatient Procedure (Routine) - Pending Review Specialty Diagnoses / Procedures Referred By Contac t Referred To [facility] Diagnoses Body mass index (BMI) of 50-59.9 in adult (HCC) Procedures ECG COMPLETE ECG ROUTINE ECG W/LEAST 12 LDS W/I&R Tonya Senior, FRED.MANAGER HEALTH [address] [place] [address] [facility] [address] [place] [id number] Referral ID Status Reason Start Date Expiration Date Visits Requested Visits Authorized [id number] Pending Review Auto-Generat ed Referral 08/20/2023 08/19/2024 1 1 [facility] Summary Purpose Family History Mother Name [...] section and content) DATE CREATED AUTHOR [facility]31/2017 [facility] DATE CREATED AUTHOR AUTHOR'S ORGANIZ ATION 04/23/2020 [facility] DATE CREATED AUTHOR AUTHOR'S ORGANIZ ATION 08/08/2020 [facility] DATE CREATED AUTHOR AUTHOR'S ORGANIZ ATION 08/22/2020 [facility] ical Center DATE CREATED AUTHOR AUTHOR'S ORGANIZ ATION 06/11/2022 [facility] DATE CREATED AUTHOR AUTHOR'S ORGANIZ ATION 09/06/2023 [facility] DATE CREATED AUTHOR AUTHOR'S ORGANIZ ATION 10/03/2023 [facility] DATE CREATED AUTHOR AUTHOR'S ORGANIZ ATION 10/18/2023 [facility] DATE CREATED AUTHOR AUTHOR'S ORGANIZ ATION 01/20/2024 [facility] DATE CREATED AUTHOR AUTHOR'S ORGANIZ ATION 04/30/[address] [facility] DATE CREATED AUTHOR AUTHOR'S ORGANIZ ATION 05/23/2024 [facility] EPIC DATE CREATED AUTHOR AUTHOR'S ORGANIZ ATION 05/24/2024 [facility] ysician Group Care Teams (unrecognized sec [...] Status: Inactive Member Role Status Dates Services [facility] Primary Care Provider Active Start: August 07, 2023 End: August 07, 2023 Nicholas Michaels DO Attending Provider Active St art: August 07, 2023 End: August 07, 2023 Team Status: Inactive Member Role Status Dates Services [facility] Primary Care Provider Active Start: October 06, 2023 End: October 06, 2023 [facility] Active Start: October 06, 2023 End: October 06, 2023 Team Status: Inactive Member Role Status Dates Services [facility] Primary Care Provider Active Start: February 26, 2024 End: February 26, 2024 Ck To PA-C Emergency Provider Active Start: February 26, 2024 End: February 26, 2024 Team Status: Inactive Member Role Status Dates Services [facility] Primary Care Provider Active Start: March 05, [...] or prosecute any alcohol or drug abuse patient.[facility] the event this information is protected by the Federal Confidentiality of Alcohol and Drug Abuse Patient Records regulations: The Federal rules restrict any use of the information to criminally investigate or prosecute any alcohol or drug abuse patient.[facility] HospitalIn the event this information is protected by the Federal Confidentiality of Alcohol and Drug Abuse Patient Records regulations: The Federal rules restrict any use of the information to criminally investigate or prosecute any alcohol or drug abuse patient.[facility] HospitalIn the event this information is protected by the Federal Confidentiality of Alcohol and Drug Abuse Patient Records regulations: The Federal rules restrict any use of the information to criminally investigate or prosecute any alcohol or drug abuse patient.[facility] HospitalIn the event this information is protected by the Federal Confidentiality of Alcohol and Drug Abuse Patient Records regulations: The Federal rules restrict any use of the information to criminally investigate or prosecute any alcohol or drug abuse patient.[facility] HospitalIn the event this information is protected by the Federal Confidentiality of Alcohol and Drug Abuse Patient Records regulations: The Federal rules restrict any use of the information to criminally investigate or prosecute any alcohol or drug abuse patient.[facility] FOR RECORDS PERTAINING TO PATIENTS [...] BE BASED ON THE PRIMARY CLINICAL RECORDS. [facility] [employer] [facility]. provides no warranty or guarantee of the accuracy or completeness of information in this document.
--- NOTE | 2024-05-28 15:15 | US_ITS ---
[address] [address] Patient Name: FABRIZIO PAINTING MRN: [id number] date: 1990 Sex: F Assigned Patient Location: [facility] Current Patient Location: [facility] Accession/Order Number: [id number] Exam Date: 05/28/2024 15:26 Report Date: 05/28/2024 16:22 At the request of: HENRY URBAN Procedure: US OB BPP w non-stress EXAMINATION: US OB BPP w non-stress HISTORY:H/O PREMATURE DELIVERY Z87.51 COMPARISON: Ultrasound OB biophysical 05/22/2024 TECHNIQUE: Ultrasound biophysical profile was performed in the radiology department. BREATHING MOVEMENTS: 2 GROSS BODY MOVEMENTS: 2 TONE: 2 QUALITATIVE AMNIOTIC FLUID VOLUME: 2 PRESENTATION: CEPHALIC HEART RATE: 150.84 bpm AMNIOTIC FLUID VOLUME: 14.12 cm GESTATIONAL AGE: 38 weeks 5 days US/US OB BPP w non-stress IMPRESSION: Total biophysical profile score: 8 Electronically authenticated by: FAM PHELPS Date: 05/28/2024 16:22
[2024-05-28 16:05] VITALS: BP 112/74; PULSE 94
== END 2024-05-28 16:29 | disposition home or self-care (01) ==
LOC: FBCO 00:19 → FBC 15:10
PROVIDERS: Visit Provider Obstetrics & Gynecology
DX: O26.893 Other specified pregnancy related conditions, third trimester (principal); Z87.51 Personal history of pre-term labor; Z3A.38 38 weeks gestation of pregnancy
CPT/HCPCS: 76818

== ENCOUNTER 2024-05-31 16:00 | Inpatient (IN) | payer MEDICAID, SELFPAY ==
--- OUTSIDE RECORDS SUMMARY | 2024-05-31 16:32 | XMS_ITS | CCD ---
Author Organization [facility] Care Team Providers Care [employer]ian [employer] Officer Name Role Phone Agustin Patton Unavailable Unavailable Agustin Patton Unavailable Unavailable Bayron Mccarty Unavailable Unavailable Unavailable Unavailable Unavailable Unavailable Unavailable Unavailable [facility] Primary Care Provider DEMETRIUS To Emergency Provider DR TACHO MENENDEZ Attending Unavailable DR TACHO MENENDEZ Consulting Unavailable DR TACHO MENENDEZ Admitting Unavailable [facility] Primary Care Provider [facility] Marychuy E Emergency Provider Nicholas Michaels Unavailable [facility] Primary Care Provider DO Nicholas Michaels Attending Provider Unavailable Primary Care Provider Unavailabl e Unavailable Primary Care Provider Unavailabl e LATONIA GREENE Attending Unavailable TONYA SENIOR Attending Unavailable [facility] Primary Care Provider [facility] Marychuy E Emergency Provider LATONIA GREENE Referring Unavailable LATONIA GREENE Attending Unavailable ANNA ORTIZ Attending Unavailable TONYA SENIOR Referring Unavailable TONYA SENIOR Referring Unavailable TACHO MENENDEZ Referring Unavailable MAKEDA GROSS Attending Unavailable TACHO MENENDEZ Referring Unavailable Unavailable Primary Care Provider Unavailabl e [facility] Primary Care Provider DEMETRIUS To Emergency Provider [phone] Unavailable Primary Care Provider UnavailDO Devika Nicholas Emergency Provider SHON, TACHO R Referring Unavailable SHON, TACHO R Referring Unavailable SHON, TACHO R Referring Unavailable [facility] Primary Care Provider Ck To PA-C Emergency Provider Devika De La Garza DO Emergency Provider Shon DOTacho Attending Provider [facility] Primary Care Unavaila ble Bullimore, Marychuy E Admitting Unavailable Bullimore, Marychuy E Attending Unavailable Shon, Tacho Admitting Unavailable Shon, Tacho Attending Unavailable [facility] Primary Care Unavaila Nicholas Willams Admitting Unavailable Nicholas Michaels Attending Unavailable Ck To Attending Unavailable [facility] Primary Care Unavaila Ck Castrejon Admitting Unavailable Devika De La Garza Admitting Unavailable Devika De La Garza Attending Unavailable [facility] Primary Care Unavaila ble SHON, TACHO Attending Unavailable SHON, TACHO Attending Unavailable MARISSA, MENA Attending Unavailable SHON, TACHO Attending Unavailable MARISSA, MENA Attending Unavailable SHON, TACHO Attending Unavailable SHON, TACHO Attending Unavailable MARISSA, MENA Attending Unavailable MARISSA, MENA Attending Unavailable SHON, [...] mg/ml oral solution (3 sources) Phenothiazine, Uncompetitive T-ofiesv-F-aspartate Receptor Antagonist, Sigma-1 Agonist Start: 02-26-2024 take [...] Daily 30 tablet 11 10/30/2023 10/29/2024 Active Shirley (No Known Home Meds) (3 sources) Start: 10-06-2023 Shirley (No Kn own Home Meds) Active October 06, 2023 12:00am Start: 06-18-2022 Shirley (No Kn own Home Meds) Active June [...] oral solution (8 sources) alpha-Adrenergic Agonist, Uncompetitive R-ftceel-D-asparta te Receptor Antagonist, Sigma-1 Agonist Start: 2 [...] 4-6 HOURS as needed for pain 20 7 July 19, 2019 11:00pm July 28, 2020 [...] 26, 2019 11:58am July 28, 2020 6:27pm Qizmtckq-Obc-Xr-Fa () 1 mg Tablet (8 sources) Start: 12-31-2020 End: 07-04-2021 take 1 tablet by mouth once Srgoxoik-Dcz-Zn-Fa () 1 mg Tablet Discontinued TAB PO December 30, 2020 11:00pm July 04, 2021 9:48am Start: 12-31-2020 End: 07-04-2021 take 1 tablet by mouth once Jpgwclwa-Ehg-Zg-F a () 1 mg Tablet Discontinued TAB [...] 9:55am Start: 06-19-2020 take 1 capsule by [facility] twice daily Progesterone Micronized 100 MG Oral Capsule TAKE 1 CAPSULE Twice daily insert capsules vaginally Quantity: 30 Refills: 3 Bayron Mccarty MD Start : 19-Jun-2020 Active sennosides, care home 8.6 mg oral tablet (1 source) take 4 tablets by [facility] every twenty-four hours Senna 8.6 MG 4 [...] reproductive or obstetric history, unspecified trimester] Onset: 09-09-2024 Episodic Unclassified (15 sources) Patient encounter status; Translations: [Infertility counseling] 03-01-2024 Unclassified (3 sources) History finding; Translations: [No pertinent past medical history] NEGATED: Highlighted row has not occurred!Residual codes; unclassified (18 sources) Disease Episodic Results Test Name Value Interpretation Reference Range Facility ALL CBC WITH AUTO DIFFon BASOPHILS ABSOLUTE AUTO 0 [facility] Basophils/100 WBC (Bld) 0.3 % 0.2 - 2.0 % [facility] Eosinophils/100 WBC (Bld) 1.8 % 0.9 - 7.0 % [facility] Erythrocyte distribution width (RBC) [Ratio] 13 % 11.0 - 15.0 % [facility] Hematocrit (Bld) [Volume fraction] 36.5 % 36.0 - 48.0 % [facility] Hemoglobin (Bld) [Mass/Vol] 12.4 g/dL 12.0 - 16.0 g/dL [facility] IMMATURE GRANULOCYTES ABS AUTO 0.03 [facility] Immature granulocytes/100 WBC (Bld) 0.4 % 0.0 - 0.5 % [facility] Interpretation and review of laboratory results Abnormal [facility] LYMPHOCYTES ABSOLUTE AUTO 2.2 [facility] Lymphocytes/100 WBC (Bld) 31.4 % 20.5 - 60.0 % [facility] MCH (RBC) [Entitic mass] 30 pg 26.7 - 34.0 pg [facility] MCHC (RBC) [Mass/Vol] 34 g/dL 29.9 - 35.2 g/dL [facility] MCV (RBC) [Entitic vol] 88.4 fL 81.0 - 99.0 fL [facility] MONOCYTES ABSOLUTE AUTO 0.5 [facility] Monocytes/100 WBC (Bld) 7.5 % 1.7 - 12.0 % [facility] NEUTROPHILS ABSOLUTE AUTO 4.1 [facility] Neutrophils/100 WBC (Bld) 58.6 % 43.0 - 75.0 % [facility] Platelet mean volume (Bld) [Entitic vol] 9.6 fL 9.5 - 13.5 fL [facility] TBH EO # 0.1 [facility]H PLT 380 [facility] TBH RBC 4.13 Low [facility] TB WBC 7 [facility] BOX TESTon 01-11-2025 BOX TEST RESULT SEE SCANNED REPORT [facility] BOX TEST SENT OUT GROUP B STREP [facility] BOX1 [facility] BOX2 05/17/24 [facility] GROUP B STREP [facility] Strep B Culture (PCN Allergi c)on 05-17-2024 Strep B Culture (PCN Allergic) Strep B Only Cult No Group B Beta Streptococcus Isolated 3 Days PERFORMED BY: [facility] [address] [place] [address] PATHOLOGIST MUNICIPAL MAINTENANCE WORKER APOLINAR POLANCO M.D. Normal [facility] Comment on above: Performed By: #### C USTB(PCN) #### [address] Urinalysis macro (dipstick) panel (U)on 05-17-2024 Bilirubin, UA Negative Negative - 4(70) +++ mg/dL [facility] Blood, UA Negative Negative - 50 Bradley/mcL [facility] Clarity, UA Clear [facility] Color, UA Jessica [facility] Glucose, UA Negative Negative - 1999(110) ++++ mg/dL [facility] Interpretation and review of laboratory results Abnormal [facility] Ketones, UA Negative Negative - 160(16) ++++ mg/dL [facility] Leukocytes, UA Positive Negative - 500+++ Gabby/mcL [facility] Comment on above: small Nitrite, UA Negative Negative - Positive [facility] pH, UA 6.5 5 - 9 [facility] Protein, UA Positive Negative - 2000(20) ++++ mg/dL [facility] Comment on above: 30 Spec Grav, UA 1.03 1 - 1.03 [facility] Urobilinogen, UA 0.2 0.2 - 12 mg/dL [facility] ALL THYROID STIM HORMONEon 1 07-04-2023 TSH Qn 2.422 m[IU]/L [facility] Urinalysis macro (dipstick) panel (U)on 05-03-2024 Bilirubin, UA Negative Negative - 4(70) +++ mg/dL [facility] Blood, UA Negative Negative - 50 Bradley/mcL [facility] Clarity, UA Clear [facility] Color, UA Yellow [facility] Glucose, UA Negative Negative - 1999(110) ++++ mg/dL [facility] Interpretation and review of laboratory results Abnormal [facility] Ketones, UA Negative Negative - 160(16) ++++ mg/dL [facility] Leukocytes, UA Positive Negative - 500+++ Gabby/mcL [facility] Comment on above: small Nitrite, UA Negative Negative - Positive [facility] pH, UA 6 5 - 9 [facility] Protein, UA Negative Negative - 1999(20) ++++ mg/dL [facility] Spec Grav, UA 1.03 1 - 1.03 [facility] Urobilinogen, UA 0.2 0.2 - 12 mg/dL [facility] Urinalysis macro (dipstick) panel (U)on 04-22-2024 Bilirubin, UA Negative Negative - 4(70) +++ mg/dL [facility] Blood, UA Negative Negative - 50 Bradley/mcL [facility] Clarity, UA Clear [facility] Color, UA Yellow [facility] Glucose, UA Negative Negative - 1999(110) ++++ mg/dL [facility] Interpretation and review of laboratory results Abnormal [facility] Ketones, UA Negative Negative - 160(16) ++++ mg/dL [facility] Leukocytes, UA Trace Negative - 500+++ Gabby/mcL [facility] Nitrite, UA Negative Negative - Positive [facility] pH, UA 6 5 - 9 [facility] Protein, UA Positive Negative - 1999(20) ++++ mg/dL [facility] Comment on above: 30 Spec Grav, UA 1.025 1 - 1.03 [facility] Urobilinogen, UA 1.0 0.2 - 12 mg/dL [facility] Urinalysis macro (dipstick) panel (U)on 04-06-2024 Bilirubin, UA Negative Negative - 4(70) +++ mg/dL [facility] Blood, UA Negative Negative - 50 Bradley/mcL [facility] Clarity, UA Clear [facility] Color, UA Yellow [facility] Glucose, UA Negative Negative - 1999(110) ++++ mg/dL [facility] Interpretation and review of laboratory results Abnormal [facility] Ketones, UA Negative Negative - 160(16) ++++ mg/dL [facility] Leukocytes, UA Positive Negative - 500+++ Gabby/mcL [facility] Comment on above: small Nitrite, UA Negative Negative - Positive [facility] pH, UA 7 5 - 9 [facility] Protein, UA Negative Negative - 1999(20) ++++ mg/dL [facility] Spec Grav, UA 1.02 1 - 1.03 [facility] Urobilinogen, UA 0.2 0.2 - 12 mg/dL [facility] Urinalysis macro (dipstick) panel (U)on 03-22-2024 Bilirubin, UA Positive Negative - 4(70) +++ mg/dL [facility] Blood, UA Negative Negative - 50 Bradley/mcL [facility] Clarity, UA Clear [facility] Color, UA Yellow [facility] Glucose, UA Negative Negative - 1999(110) ++++ mg/dL [facility] Interpretation and review of laboratory results Normal [facility] Ketones, UA Positive Negative - 160(16) ++++ mg/dL [facility] Leukocytes, UA Positive Negative - 500+++ Gabby/mcL [facility] Nitrite, UA Negative Negative - Positive [facility] pH, UA 7 5 - 9 [facility] Protein, UA Positive Negative - 1999(20) ++++ mg/dL [facility] Spec Grav, UA 1.025 1 - 1.03 [facility] Urobilinogen, UA 1.0 0.2 - 12 mg/dL [facility] ALL CBC WITH AUTO DIFFon BASOPHILS ABSOLUTE AUTO 0 [facility] Basophils/100 WBC (Bld) 0.5 % 0.2 - 2.0 % [facility] Eosinophils/100 WBC (Bld) 2.4 % 0.9 - 7.0 % [facility] Erythrocyte distribution width (RBC) [Ratio] 13.2 % 11.0 - 15.0 % [facility] Hematocrit (Bld) [Volume fraction] 33.2 % Low 36.0 - 48.0 % [facility] Hemoglobin (Bld) [Mass/Vol] 11.1 g/dL Low 12.0 - 16.0 g/dL [facility] IMMATURE GRANULOCYTES ABS AUTO 0.02 [facility] Immature granulocytes/100 WBC (Bld) 0.3 % 0.0 - 0.5 % [facility] Interpretation and review of laboratory results Abnormal [facility] LYMPHOCYTES ABSOLUTE AUTO 2.1 [facility] Lymphocytes/100 WBC (Bld) 32.5 % 20.5 - 60.0 % [facility] MCH (RBC) [Entitic mass] 30.5 pg 26.7 - 34.0 pg [facility] MCHC (RBC) [Mass/Vol] 33.4 g/dL 29.9 - 35.2 g/dL [facility] MCV (RBC) [Entitic vol] 91.2 fL 81.0 - 99.0 fL [facility] MONOCYTES ABSOLUTE AUTO 0.3 [facility] Monocytes/100 WBC (Bld) 4.6 % 1.7 - 12.0 % [facility] NEUTROPHILS ABSOLUTE AUTO 3.9 [facility] Neutrophils/100 WBC (Bld) 59.7 % 43.0 - 75.0 % [facility] Platelet mean volume (Bld) [Entitic vol] 9.3 fL Low 9.5 - 13.5 fL [facility] TBH EO # 0.2 [facility] TB PLT 342 [facility] RBC 3.64 Low [facility] TB WBC 6.6 [facility] BioFire Not Detectedon 03-05 BioFire Not Detected Not detected Normal Not Detecte T [facility] Comment on above: Result Comment: This is a duplicate RP2.1 COVID (PCR) result to be used for statistical tracking purpose only. PERFORMED BY: [place] [address] PATHOLOGIST MUNICIPAL MAINTENANCE WORKER LION STANLEY M.D. Performed By: #### C BC, CMP, HCGQNT #### [facility] [address] [place] [address] COVID-19 Detected/Not Detect edOrdered By: Devika De La Garza on 03-05-2024 SARS-CoV-2 (COVID-19) RNA YANET+non-probe Ql (Nph) Not detected Not Detecte [facility] Comment on above: This is a duplicate RP2.1 COVID (PCR) result to be used for statistical tracking purpose only. ECG 12 lead ECGon 03-05-2024 ECG 12 lead ECG [facility] Main [place] [address] [place] [address] Electrocardiograph Report Signed Patient: Jaleesa Arrieta MR#: [id number] [birth year] : 1990 Acct:[id number] Age/Sex: 33 / F ADM Date: 03/05/24 Loc: ER Room: Type: [facility] ER Attending Dr: Ordering Provider: Devika [...] Confirmed by DEVIKA DE LA GARZA DO ([id number]) on 03/06/2024 1:44:25 AM Referred By: Electronically Signed By: DEVIKA DE LA GARZA DO Transcribed By: MUS Signed By Devika De La Garza DO 03/06 0144 Normal [facility] Quick Strepon 03-05-2024 Quick Strep Streptococcus pyogen es Ag [Presence] in Throat by Rapid immunoassay Negative for Group A Strep Antigen Note 1 NOTE 2 Results are those of a screening test. NOTE 3 If clinically indicated please order a culture. NOTE 4 NOTE 5 Reference range = Negative PERFORMED BY: [place] [address] PATHOLOGIST MUNICIPAL MAINTENANCE WORKER LION STANLEY M.D. Normal [facility] Comment on above: Performed By: #### Q S, RESP PANEL UPP., BIOFIRECOVNOTDE #### [address] Respiratory (Upper) Panel, P CRon 03-05-2024 [...] A H3 Blank Space ------ PERFORMED BY: [place] [address] PATHOLOGIST MUNICIPAL MAINTENANCE WORKER LION Goldberg [facility] Comment on above: Performed By: #### Q S, RESP PANEL UPP., BIOFIRECOVNOTDE #### [address] Respiratory pathogens DNA an d RNA panel - Nasopharynx by YANET with non-probe detectionOrdered By: Devika De La Garza on 03-05-2024 Respiratory pathogens DNA and RNA panel YANET+non-probe (Nph) Respiratory pathogens DNA and RNA panel - Nasopharynx by YANET with non-probe detection [facility] Respiratory pathogens DNA and RNA panel YANET+non-probe (Nph) [facility] Streptococcus pyogenes antig en detectionOrdered By: Devika De La Garza on 03-05-2024 S. pyogenes Ag Ql (Unsp spec) Streptococcus pyogenes antigen detection [facility] S. pyogenes Ag Ql (Unsp spec) [facility] XR chest 1V portableon 03-05 XR chest 1V portable [facility] Main [address] [address] XRay Report Signed Patient: Jaleesa Arrieta MR#: [id number] [birth year] : 1990 Acct:[id number] Age/Sex: 33 / F ADM Date: 03/05/24 Loc: ER Room: Type: [facility] ER Attending Dr: Copies to: Devika [...] Priscilla Cunningham M.D.03/05/2024 9:34 PM Dictation Location: [place] [address] Transcribed By: [facility] 03/05/242133 Dictated By: Priscilla Cunningham MD 03/05/242130 Signed By: 03/05/242133 Normal [facility] Quick Strepon 02-26-2024 Quick Strep Streptococcus pyogen es Ag [Presence] in Throat by Rapid immunoassay Negative for Group A Strep Antigen Note 1 NOTE 2 Results are those of a screening test. NOTE 3 If clinically indicated please order a culture. NOTE 4 NOTE 5 Reference range = Negative PERFORMED BY: [address] [address] PATHOLOGIST MUNICIPAL MAINTENANCE WORKER LION Goldberg [facility] Comment on above: Performed By: #### Q S #### [facility] [address] [place] [id number] [facility] Streptococcus pyogenes antig en detectionOrdered By: Ck To on 02-26-2024 S. pyogenes Ag Ql (Unsp spec) Streptococcus pyogenes antigen detection [facility] S. pyogenes Ag Ql (Unsp spec) [facility] Urinalysis macro (dipstick) panel (U)on 02-23-2024 Bilirubin, UA Negative Negative - 4(70) +++ mg/dL [facility] Blood, UA Negative Negative - 50 Bradley/mcL [facility] Clarity, UA Clear [facility] Color, UA Yellow [facility] Glucose, UA Negative Negative - 1999(110) ++++ mg/dL [facility] Interpretation and review of laboratory results Abnormal [facility] Ketones, UA Negative Negative - 160(16) ++++ mg/dL [facility] Leukocytes, UA Positive Negative - 500+++ Gabby/mcL [facility] Comment on above: small Nitrite, UA Negative Negative - Positive [facility] pH, UA 7 5 - 9 [facility] Protein, UA Negative Negative - 1999(20) ++++ mg/dL [facility] Spec Grav, UA 1.02 1 - 1.03 [facility] Urobilinogen, UA 0.2 0.2 - 12 mg/dL [facility] ALL THYROID STIM HORMONEon 0 01-26-2024 TSH Qn 2.645 m[IU]/L [facility] Urinalysis macro (dipstick) panel (U)on 01-20-2024 Bilirubin, UA Negative Negative - 4(70) +++ mg/dL [facility] Blood, UA Negative Negative - 50 Bradley/mcL [facility] Clarity, UA Clear [facility] Color, UA Yellow [facility] Glucose, UA Negative Negative - 1999(110) ++++ mg/dL [facility] Interpretation and review of laboratory results Abnormal [facility] Ketones, UA Negative Negative - 160(16) ++++ mg/dL [facility] Leukocytes, UA Trace Negative - 500+++ Gabby/mcL [facility] Nitrite, UA Negative Negative - Positive [facility] pH, UA 6.5 5 - 9 [facility] Protein, UA Negative Negative - 2000(20) ++++ mg/dL [facility] Spec Grav, UA 1.020 1 - 1.03 [facility] Urobilinogen, UA 0.2 0.2 - 12 mg/dL [facility] Alanine aminotransferase [En zymatic activity/volume] in Serum or PlasmaOrdered By: Marychuy Kyle on 10-06-2023 ALT [Catalytic activity/Vol] 13 U/L Normal 7-52 [facility] Comment on above: Performed By: #### C BC, CMP, HCGQNT #### [facility] [address] [place] [address] [place] Albumin [Mass/volume] in Ser um or Plasma by Bromocresol green (BCG) dye binding methoOrdered By: Marychuy Kyle on 10-06-2023 Albumin BCG dye [Mass/Vol] 3.8 g/dL 3.5-5.7 [facility] Alkaline phosphatase [Enzyma tic activity/volume] in Serum or PlasmaOrdered By: Marychuy Klye on 10-06-2023 ALP [Catalytic activity/Vol] 61 U/L Normal 34-104 [facility] Comment on above: Performed By: #### C BC, CMP, HCGQNT #### [address] Aspartate aminotransferase [ Enzymatic activity/volume] in Serum or PlasmaOrdered By: Marychuy Kyle on 10-06-2023 AST [Catalytic activity/Vol] 13 U/L Normal 13-39 [facility] Comment on above: Performed By: #### C BC, CMP, HCGQNT #### [facility] [address] [place] [address] [place] Automated basophil %Ordered By: Marychuy Kyle on 10-06-2023 Basophils/100 WBC (Bld) 0.6 % Normal . [facility] Comment on above: Performed By: #### C BC, CMP, HCGQNT #### [place] [address] [place] Automated basophil countOrde red By: Marychuy Wangore on 10-06-2023 Basophils (Bld) [#/Vol] 0.0 10*3/uL Normal 0.0-0.2 [facility] Comment on above: Result Comment: PERF ORMED BY: [place] [address] PATHOLOGIST MUNICIPAL MAINTENANCE WORKER LION STANLEY M.D. Performed By: #### C BC, CMP, HCGQNT #### [address] Automated blood monocyte cou ntOrdered By: Marychuy Bullimore on 10-06-2023 Monocytes (Bld) [#/Vol] 0.5 10*3/uL Normal 0.0-0.8 [facility] Comment on above: Performed By: #### C BC, CMP, HCGQNT #### [address] Automated eosinophil %Ordere d By: Marychuy Bullimore on 10-06-2023 Eosinophils/100 WBC (Bld) 0.7 % Normal . [facility] Comment on above: Performed By: #### C BC, CMP, HCGQNT #### [address] Automated eosinophil countOr dered By: Marychuy Bullimore on 10-06-2023 Eosinophils (Bld) [#/Vol] 0.1 10*3/uL Normal 0.0-0.45 [facility] Comment on above: Performed By: #### C BC, CMP, HCGQNT #### [address] Automated epithelial cells c ount in urine sediment (number/area)Ordered By: Marychuy Bullimore on 10-06-2023 Epithelial cells Auto (Urine sed) [#/Area] 3-4 [HPF] 0-2 [facility] Automated monocyte %Ordered By: Marychuy Bullimore on 10-06-2023 Monocytes/100 WBC (Bld) 6.7 % Normal . [facility] Comment on above: Performed By: #### C BC, CMP, HCGQNT #### [facility] [address] Automated neutrophil %Ordere d By: Marychuy Phaniimore on 10-06-2023 Neutrophils/100 WBC (Bld) 54.4 % Normal . [facility] Comment on above: Performed By: #### C BC, CMP, HCGQNT #### [facility] [address] Bacteria [Presence] in Urine by AutomatedOrdered By: Marychuy Bullimore on 10-06-2023 Bacteria Auto Ql (U) None seen [HPF] None Seen [facility] Bilirubin Test strip Ql (U)O rdered By: Marychuy Bullimore on 10-06-2023 Bilirubin Ql (U) Negative Negative [facility] Bilirubin.total [Mass/volume ] in Serum or PlasmaOrdered By: Marychuy Bullimore on 10-06-2023 Bilirubin [Mass/Vol] 0.2 mg/dL Low 0.3-1.0 [facility] Comment on above: Performed By: #### C BC, CMP, HCGQNT #### [facility] [address] [place] [address] Calcium [Mass/volume] in Ser um or PlasmaOrdered By: Marychuy Bullimore on 10-06-2023 Calcium [Mass/Vol] 9.4 mg/dL Normal 8.6-10.3 [facility] Comment on above: Performed By: #### C BC, CMP, HCGQNT #### [facility] [address] [place] [address] [place] Carbon dioxide, total [Moles /volume] in Serum or PlasmaOrdered By: Marychuy Bullimore on 10-06-2023 CO2 [Moles/Vol] 25.5 mmol/L Normal 21.0-31.0 [facility] Comment on above: Performed By: #### C BC, CMP, HCGQNT #### [facility] [address] [place] [address] [place] Chloride [Moles/volume] in S sondra or PlasmaOrdered By: Marychuy Bullimore on 10-06-2023 Chloride [Moles/Vol] 105 mmol/L Normal 98-107 [facility] Comment on above: Performed By: #### C BC, CMP, HCGQNT #### [address] [address] Choriogonadotropin.beta subu nit [Units/volume] in Serum or PlasmaOrdered By: Marychuy Kyle on 10-06-2023 HCG.beta subunit Qn 2799.00 m[IU]/mL [facility] Comment on above: Approximate Approxim ate hCG Gestational Age Range (mIU/ml) (weeks)0.2-1 5-50 1-2 50-500 2-3 100-5,000 3-4 500-10,000 4-5 1,000-50,000 5-6 10,000-100,000 6-8 15,000-200,000 8-12 10,000-100,000 Color of Urine by AutoOrdere d By: Marychuy Kyle on 10-06-2023 Color (U) Yellow Normal Yellow [facility] Comment on above: Order Comment: NEED MORE SPECIMEN Name Collection Type:: Clean-Voided Midstream Performed By: #### A DDONUAPLUS #### [address] Complete Blood Count Auto Di ffon 10-06-2023 Mean Corpuscular HGB Conc 34.4 g/dL Normal 32.0-35.0 [facility] Comment on above: Performed By: #### C BC, CMP, HCGQNT #### [place] [address] [place] Monocytes/100 WBC (Bld) 17.37 % Normal 0.00-20.00 [facility] Comment on above: Performed By: #### C BC, CMP, HCGQNT #### [address] NRBC% 0.2 /100{WBC} Normal 0-0.5 [facility] Comment on above: Performed By: #### C BC, CMP, HCGQNT #### [address] Comprehensive Metabolic Pane panchito 10-06-2023 Albumin [Mass/Vol] 3.8 g/dL Normal 3.5-5.7 [facility] Comment on above: Performed By: #### C BC, CMP, HCGQNT #### [address] Creatinine Clr Calc Pharmacy 180.48 Normal [facility] Comment on above: Performed By: #### C BC, CMP, HCGQNT #### [place] [address] [place] GFR/1.73 sq M.predicted MDRD (S/P/Bld) [Vol rate/Area] mL/min/{1.73_m2} Normal [facility] Comment on above: Performed By: #### C BC, CMP, HCGQNT #### [address] Creatinine [Mass/volume] in Serum or PlasmaOrdered By: Marychuy Kyle on 10-06-2023 Creatinine [Mass/Vol] 0.63 mg/dL Normal 0.60-1.20 [facility] Comment on above: Performed By: #### C BC, CMP, HCGQNT #### [place] [address] [place] Dipstick and Microscopicon 0 10-06-2023 Appearance (U) Clear Normal Clear [facility] Comment on above: Order Comment: NEED MORE SPECIMEN Name Collection Type:: Clean-Voided Midstream Performed By: #### A DDONUAPLUS #### [place] [address] [place] Bacteria,Urine None Seen Normal None Seen [facility] Comment on above: Order Comment: NEED MORE SPECIMEN Name Collection Type:: Clean-Voided Midstream Performed By: #### A DDONUAPLUS #### [place] [address] [place] Bilirubin,Urine Negative Normal Negative [facility] Comment on above: Order Comment: NEED MORE SPECIMEN Name Collection Type:: Clean-Voided Midstream Performed By: #### A DDONUAPLUS #### [address] [place] [place] [address] [place] Glucose Ql (U) Normal Normal Normal [facility] Comment on above: Order Comment: NEED MORE SPECIMEN Name Collection Type:: Clean-Voided Midstream Performed By: #### A DDONUAPLUS #### [facility] [address] [place] [address] [place] Hyaline Casts,Urine 0-8 Normal 0-8 [facility] Comment on above: Order Comment: NEED MORE SPECIMEN Name Collection Type:: Clean-Voided Midstream Result Comment: PERF ORMED BY: [place] [address] PATHOLOGIST MUNICIPAL MAINTENANCE WORKER LION STANLEY M.D. Performed By: #### A DDONUAPLUS #### [place] [id number] [place] Ketones Ql (U) Negative Normal Negative [facility] Comment on above: Order Comment: NEED MORE SPECIMEN Name Collection Type:: Clean-Voided Midstream Performed By: #### A DDONUAPLUS #### [place] [address] [place] Leukocyte esterase Test strip Ql (U) 1+ High Negative [facility] Comment on above: Order Comment: NEED MORE SPECIMEN Name Collection Type:: Clean-Voided Midstream Performed By: #### A DDONUAPLUS #### [address] [address] [place] Nitrite,Urine Negative Normal Negative [facility] Comment on above: Order Comment: NEED MORE SPECIMEN Name Collection Type:: Clean-Voided Midstream Performed By: #### A DDONUAPLUS #### [address] [address] [place] Occult Blood,Urine Negative Normal Negative [facility] Comment on above: Order Comment: NEED MORE SPECIMEN Name Collection Type:: Clean-Voided Midstream Result Comment: PERF ORMED BY: [place] [address] PATHOLOGIST MUNICIPAL MAINTENANCE WORKER LION STANLEY M.D. Performed By: #### A DDONUAPLUS #### [address] Protein,Urine Negative Normal Negative [facility] Comment on above: Order Comment: NEED MORE SPECIMEN Name Collection Type:: Clean-Voided Midstream Performed By: #### A DDONUAPLUS #### [address] RBC LM.HPF (Urine sed) [#/Area] 0 /[HPF] Normal 0-4 [facility] Comment on above: Order Comment: NEED MORE SPECIMEN Name Collection Type:: Clean-Voided Midstream Performed By: #### A DDONUAPLUS #### [address] Specificy [place],Urine 1.017 Normal 1.001-1.030 [facility] Comment on above: Order Comment: NEED MORE SPECIMEN Name Collection Type:: Clean-Voided Midstream Performed By: #### A DDONUAPLUS #### [place] [address] [place] Squamous Epithelial Cell,Urine 3-4 High 0-2 [facility] Comment on above: Order Comment: NEED MORE SPECIMEN Name Collection Type:: Clean-Voided Midstream Performed By: #### A DDONUAPLUS #### [address] Urobilinogen,Urine Normal Normal Normal [facility] Comment on above: Order Comment: NEED MORE SPECIMEN Name Collection Type:: Clean-Voided Midstream Performed By: #### A DDONUAPLUS #### [place] [address] [place] WBC,Urine 3-4 Normal 0-4 [facility] Comment on above: Order Comment: NEED MORE SPECIMEN Name Collection Type:: Clean-Voided Midstream Performed By: #### A DDONUAPLUS #### [place] [address] [place] Erythrocyte distribution wid th [Ratio] by Automated countOrdered By: Marychuy Kyle on 10-06-2023 Erythrocyte distribution width (RBC) [Ratio] 13.4 % Normal 11.9-15.3 [facility] Comment on above: Performed By: #### C BC, CMP, HCGQNT #### [facility] [address] Erythrocytes [#/area] in Uri ne sediment by Automated countOrdered By: Marychuy Kyle on 10-06-2023 RBC Auto (Urine sed) [#/Area] 0-1 [HPF] 0-4 [facility] Erythrocytes [#/volume] in B lood by Automated countOrdered By: Marychuy Kyle on 10-06-2023 RBC (Bld) [#/Vol] 4.08 10*6/uL Normal 3.60-5.00 [facility] Comment on above: Performed By: #### C BC, CMP, HCGQNT #### [facility] [address] Glucose [Mass/volume] in Ser um or PlasmaOrdered By: Marychuy Kyle on 10-06-2023 Glucose [Mass/Vol] 100 mg/dL Normal 70-100 [facility] Comment on above: ADA recommended refe rence rangeRandom Glucose Reference Range is dependent on time and content of last meal. Glucose of more than 200 mg/dL in a nonstressed, ambulatory subject supports the diagnosis of Diabetes Mellitus. Result Comment: [place] om Glucose Reference Range is dependent on time and content of last meal. Glucose of more than 200 mg/dL in a nonstressed, ambulatory subject supports the diagnosis of Diabetes Mellitus. ADA recommended reference range Performed By: #### C BC, CMP, HCGQNT #### [facility] [address] [place] [id number] [facility] HCG,Quantitativeon HCG,Quantitative 2799.00 m[iU]/mL Normal Th [facility] Comment on above: Result Comment: Appr oximate Approximate hCG Gestational Age Range (mIU/ml) (weeks) 0.2-1 5-50 1-2 50-500 2-3 100-5,000 3-4 500-10,000 4-5 1,000-50,000 5-6 10,000-100,000 6-8 15,000-200,000 8-12 10,000-100,000 PERFORMED BY: [place] [address] PATHOLOGIST MUNICIPAL MAINTENANCE WORKER LION STANLEY M.D. Performed By: #### C BC, CMP, HCGQNT #### [address] Hematocrit [Volume Fraction] of Blood by Automated countOrdered By: Marychuy Kyle on 10-06-2023 Hematocrit (Bld) [Volume fraction] 36.7 % Normal 34.0-46.4 [facility] Comment on above: Performed By: #### C BC, CMP, HCGQNT #### [address] Hemoglobin [Mass/volume] in BloodOrdered By: Marychuy Kyle on 10-06-2023 Hemoglobin (Bld) [Mass/Vol] 12.6 g/dL Normal 11.8-15.4 [facility] Comment on above: Performed By: #### C BC, CMP, HCGQNT #### [address] Ketones Auto test strip (U) [Mass/Vol]Ordered By: Marychuy Kyle on 10-06-2023 Ketones (U) [Mass/Vol] Negative Negative [facility] Laboratory - UrinalysisOrder ed By: Marychuy Kyle on 10-06-2023 Hyaline casts LM Ql (Urine sed) 0-8 [LPF] 0-8 [facility] Leukocytes [#/area] in Urine sediment by Automated countOrdered By: Marychuy Kyle on 10-06-2023 WBC Auto (Urine sed) [#/Area] 3-4 [HPF] 0-4 [facility] Leukocytes [#/volume] correc inocencia for nucleated erythrocytes in Blood by Automated counOrdered By: Marychuy Kyle on 10-06-2023 WBC corrected for nucl RBC Auto (Bld) [#/Vol] 7.4 10*3/uL 3.8-11.6 [facility] Leukocytes [#/volume] in Blo od by Automated countOrdered By: Marychuy Kyle on 10-06-2023 WBC (Bld) [#/Vol] 7.4 10*3/uL Normal 3.8-11.6 [facility] Comment on above: Performed By: #### C BC, CMP, HCGQNT #### [address] Lymphocytes [#/volume] in Bl ood by Automated countOrdered By: Marychuy Bullimore on 10-06-2023 Lymphocytes (Bld) [#/Vol] 2.8 10*3/uL Normal 1.00-4.8 [facility] Comment on above: Performed By: #### C BC, CMP, HCGQNT #### [address] Lymphocytes/100 leukocytes i n Blood by Automated countOrdered By: Marychuy Bullimore on 10-06-2023 Lymphocytes/100 WBC (Bld) 37.6 % Normal . [facility] Comment on above: Performed By: #### C BC, CMP, HCGQNT #### [address] MCH [Entitic mass] by Automa inocencia countOrdered By: Marychuy Bullimore on 10-06-2023 MCH (RBC) [Entitic mass] 31.0 pg Normal 24.7-34.3 [facility] Comment on above: Performed By: #### C BC, CMP, HCGQNT #### [address] MCHC Auto (RBC) [Mass/Vol]Or dered By: Marychuy Bullimore on 10-06-2023 MCHC (RBC) [Mass/Vol] 34.4 g/dL 32.0-35.0 [facility] MCV [Entitic volume] by Auto mated countOrdered By: Marychuy Bullimore on 10-06-2023 MCV (RBC) [Entitic vol] 90.1 fL Normal 80-100 [facility] Comment on above: Performed By: #### C BC, CMP, HCGQNT #### [address] Monocyte distribution width [Entitic volume] in Blood by AutomatedOrdered By: Marychuy Kyle on 10-06-2023 Monocyte distribution width Auto (Bld) [Entitic vol] 17.37 % 0.00-20.00 [facility] Neutrophils [#/volume] in Bl ood by Automated countOrdered By: Marychuy Kyle on 10-06-2023 Neutrophils (Bld) [#/Vol] 4.0 10*3/uL Normal 1.8-7.7 [facility] Comment on above: Performed By: #### C BC, CMP, HCGQNT #### [facility] [address] Nitrite Test strip Ql (U)Ord ered By: Marychuy Kyle on 10-06-2023 Nitrite Ql (U) Negative Negative [facility] No Panel InformationOrdered By: Marychuy Kyle on 10-06-2023 Estimated GFR (CKD-EPI) > 60.0 mL/Min [facility] Creatinine Clearance (Chem 180.48 [facility] Nucleated erythrocytes [Pres ence] in Blood by Automated countOrdered By: Marychuy Kyle on 10-06-2023 Nucleated RBC Auto Ql (Bld) 0.2 /100{WBC} 0-0.5 [facility] Platelet mean volume [Entiti c volume] in Blood by Automated countOrdered By: Marychuy Kyle on 10-06-2023 Platelet mean volume (Bld) [Entitic vol] 7.5 fL Normal 6.3-10.7 [facility] Comment on above: Performed By: #### C BC, CMP, HCGQNT #### [facility] [address] [place] [address] [place] Platelets [#/volume] in Bloo d by Automated countOrdered By: Marychuy Kyle on 10-06-2023 Platelets (Bld) [#/Vol] 367 10*3/uL Normal 150-450 [facility] Comment on above: Performed By: #### C BC, CMP, HCGQNT #### [facility] [address] [place] [address] [place] Potassium [Moles/volume] in Serum or PlasmaOrdered By: Marychuy Bullimore on 10-06-2023 Potassium [Moles/Vol] 4.1 mmol/L Normal 3.5-5.1 [facility] Comment on above: Performed By: #### C BC, CMP, HCGQNT #### [address] Protein Auto test strip (U) [Mass/Vol]Ordered By: Marychuy Bullimore on 10-06-2023 Protein (U) [Mass/Vol] Negative Negative [facility] Protein [Mass/volume] in Ser um or PlasmaOrdered By: Marychuy Bullimore on 10-06-2023 Protein [Mass/Vol] 7.4 g/dL Normal 6.4-8.9 [facility] Comment on above: Performed By: #### C BC, CMP, HCGQNT #### [address] Serum globulin measurement b y calculation (mass/volume)Ordered By: Marychuy Bullimore on 10-06-2023 Globulin (S) [Mass/Vol] 3.6 g/dL [facility] Comment on above: Performed By: #### C BC, CMP, HCGQNT #### [address] Serum or plasma albumin/glob ulin mass ratioOrdered By: Marychuy Bullimore on 10-06-2023 Albumin/Globulin [Mass ratio] 1.1 {ratio} [facility] Comment on above: Performed By: #### C BC, CMP, HCGQNT #### [address] Serum or plasma anion gap de terminationOrdered By: Marychuy Bullimore on 10-06-2023 Anion gap [Moles/Vol] 12.6 mmol/L Normal 6.0-15.0 [facility] Comment on above: Performed By: #### C BC, CMP, HCGQNT #### [address] Sodium [Moles/volume] in Ser um or PlasmaOrdered By: Marychuy Bullimore on 10-06-2023 Sodium [Moles/Vol] 139 mmol/L Normal 136-145 [facility] Comment on above: Performed By: #### C JOSELYN WRIGHT, HCGQNT #### [address] Specific gravity Auto test s trip (U) [Rel density]Ordered By: Marychuy Kyle on 10-06-2023 Specific gravity (U) [Rel density] 1.017 1.001-1.030 [facility] Urea nitrogen [Mass/volume] in Serum or PlasmaOrdered By: Marychuy Kyle on 10-06-2023 Urea nitrogen [Mass/Vol] 7 mg/dL Normal 7-25 [facility] Comment on above: Performed By: #### C JOSELYN WRIGHT, HCGQNT #### [address] Urine clarity by refractomet ry automatedOrdered By: Marychuy Kyle on 10-06-2023 Clarity Refractometry automated (U) Clear Clear [facility] Urine glucose measurement by automated test strip (mass/volume)Ordered By: Marychuy Kyle on 10-06-2023 Glucose Auto test strip (U) [Mass/Vol] Normal mg/dL Normal [facility] Urine hemoglobin detection b y automated test stripOrdered By: Marychuy Kyle on 10-06-2023 Hemoglobin Auto test strip Ql (U) Negative Negative [facility] Urine leukocyte esterase det ection by automated test stripOrdered By: Marychuy Kyle on 10-06-2023 Leukocyte esterase Auto test strip Ql (U) 1+ Negative [facility] Urine pH measurement by auto mated test stripOrdered By: Marychuy Kyle on 10-06-2023 pH (U) 7.0 [pH] Normal 5.0-9.0 [facility] Comment on above: Order Comment: NEED MORE SPECIMEN Name Collection Type:: Clean-Voided Midstream Performed By: #### A DDONUAPLUS #### [address] Urobilinogen Auto test strip (U) [Mass/Vol]Ordered By: Marychuy Kyle on 10-06-2023 Urobilinogen (U) [Mass/Vol] Normal mg/dL Normal [facility] Basia 09-11-2023 LIZ Telephone (MOGNADINE) -------- JALEESA ARRIETA ([id number]) 1990 F Date Time Provider Department 09/11/23 OTNYA SENIOR During your visit today, we recorded [...] Status:Closed by TONYA SENIOR on 09/23/23 Normal [facility] NICOTINE AND METAB, URon URIN ANABASINE QUANT <5 Normal [facility] Comment on above: Order Comment: Speci men Type: URINE SPECIMEN Ordering Facility: [facility] Address: [address] [place] [address] Performed By: #### U NICOT #### [facility] CLIA [id number] [address] [place] [address] URIN COTININE QUANT <15 Normal [facility] Comment on above: Order Comment: Speci men Type: URINE SPECIMEN Ordering Facility: [facility] Address: [address] [place] [address] Performed By: #### U NICOT #### [facility] CLIA [id number] [address] [place] [address] URIN NICOTINE QUANT <15 Normal [facility] Comment on above: Order Comment: Speci men Type: URINE SPECIMEN Ordering Facility: [facility] Address: [address] [place] [address] [place] [address] Result Comment: INTE RPRETIVE INFORMATION: Nicotine and Metabolites, Urine, Quantitative Methodology: Quantitative Liquid Chromatography-Tandem Mass Spectrometry Positive cutoff: Nicotine 15 ng/mL Cotinine 15 ng/mL 4-PX-Nvxmpgco 50 ng/mL Anabasine 5 ng/mL For medical [...] developed and its performance characteristics determined by [facility]. It has not been cleared or approved by the [place] Food and Drug Administration. This test was performed in a CLIA certified laboratory and is intended for clinical purposes. Performed By: [facility] [address] [place] [address] Mineral Technologist: Rex Zuleta MD, PhD CLIA Number: [id number] Performed By: #### U NICOT #### [facility] CLIA [id number] [address] [place] [address] URINE 3 [place] COTININE <50 Normal [facility] Comment on above: Order Comment: Speci men Type: URINE SPECIMEN Ordering Facility: [facility] Address: [address] [place] [address] Performed By: #### U NICOT #### [facility] CLIA [id number] [address] [place] [address] TOXICOLOGY SCREEN, ROUTINE U RINEon 09-08-2023 Amphetamines Confirm (U) [Mass/Vol] Negative Normal Negative [facility] Comment on above: Order Comment: Speci men Type: URINE SPECIMEN Ordering Facility: [facility] Address: [address] [place] [address] Result Comment: Cuto ff threshold at 1000 ng/mL. Performed By: #### U TOX2 #### [facility] CLIA [id number] [address] [place] [address] [place] BARBITURATES, URINE Negative Normal Negative [facility] Comment on above: Order Comment: Speci men Type: URINE SPECIMEN Ordering Facility: [facility] Address: [address] [place] [address] Result Comment: Cuto ff threshold at 200 ng/mL. Performed By: #### U TOX2 #### [facility] CLIA [id number] [address] [place] [address] [place] BENZODIAZEPINES, UR Negative Normal Negative [facility] Comment on above: Order Comment: Speci men Type: URINE SPECIMEN Ordering Facility: [facility] Address: [address] [place] [address] Result Comment: Cuto ff threshold at 200 ng/mL. Performed By: #### U TOX2 #### [facility] CLIA [id number] [address] [place] [address] [place] Cannabinoids Screen Ql (U) Negative Normal Negative [facility] Comment on above: Order Comment: Speci men Type: URINE SPECIMEN Ordering Facility: [facility] Address: [address] [place] [address] Result Comment: Cuto ff threshold at 50 ng/mL. Performed By: #### U TOX2 #### [facility] CLIA [id number] [address] [place] [address] [place] Cocaine Ql (U) Negative Normal Negative [facility] Comment on above: Order Comment: Speci men Type: URINE SPECIMEN Ordering Facility: [facility] Address: [address] [place] [address] Result Comment: Cuto ff threshold at 300 ng/mL. Performed By: #### U TOX2 #### [facility] CLIA [id number] [address] [place] [address] [place] Ethanol (U) [Mass/Vol] <11 Normal <11 [facility] Comment on above: Order Comment: Speci men Type: URINE SPECIMEN Ordering Facility: [facility] Address: [address] [place] [address] Performed By: #### U TOX2 #### [facility] CLIA [id number] [address] [place] [address] [place] Opiates Screen Ql (U) Negative Normal Negative [facility] Comment on above: Order Comment: Speci men Type: URINE SPECIMEN Ordering Facility: [facility] Address: [address] [place] [address] Result Comment: Cuto ff threshold at 300 ng/mL. Performed By: #### U TOX2 #### [facility] CLIA [id number] [address] [place] [address] [place] oxyCODONE cutoff Screen (U) [Mass/Vol] Negative Normal Negative [facility] Comment on above: Order Comment: Speci men Type: URINE SPECIMEN Ordering Facility: [facility] Address: [address] [place] [address] Result Comment: Cuto ff threshold at 100 ng/mL. Performed By: #### U TOX2 #### [facility] CLIA [id number] [address] [place] [address] [place] Phencyclidine Ql (U) Negative Normal Negative [facility] Comment on above: Order Comment: Speci men Type: URINE SPECIMEN Ordering Facility: [facility] Address: [address] [place] [address] Result Comment: Cuto ff threshold at 25 ng/mL. Performed By: #### U TOX2 #### [facility] CLIA [id number] [address] [place] [address] [place] 25([place] 25-hydroxyvitamin D3 [Mass/Vol] 11.9 ng/mL Low 31.0-80.0 [facility] Comment on above: Order Comment: Speci men Type: BLOOD SPECIMEN Ordering Facility: [facility] Address: [address] [place] [address] Performed By: #### 2 276-4, 2132-01, 2283-12 #### [facility] CLIA [id number] [address] [place] [address] [place] CBC W Auto Differential pane l (Bld)on 09-05-2023 Basophils (Bld) [#/Vol] 10*3/uL Normal <0.11 [facility] Comment on above: Order Comment: Speci men Type: BLOOD SPECIMEN Ordering Facility: [facility] Address: [address] [place] [address] Performed By: #### 2 276-4, 2132-01, 2283-12 #### [facility] CLIA [id number] [address] [place] [address] [place] Basophils/100 WBC (Bld) 0.3 % Normal [facility] Comment on above: Order Comment: Speci men Type: BLOOD SPECIMEN Ordering Facility: [facility] Address: [address] [place] [address] Performed By: #### 2 276-4, 2132-01, 2283-12 #### [facility] CLIA [id number] [address] [place] [address] [place] Differential cell count method Nom (Bld) Auto Normal [facility] Comment on above: Order Comment: Speci men Type: BLOOD SPECIMEN Ordering Facility: [facility] Address: [address] [place] [address] Performed By: #### 2 276-4, 2132-01, 2283-12 #### [facility] CLIA [id number] [address] [place] [address] [place] Eosinophils (Bld) [#/Vol] 0.09 10*3/uL Normal <0.46 [facility] Comment on above: Order Comment: Speci men Type: BLOOD SPECIMEN Ordering Facility: [facility] Address: [address] [place] [address] Performed By: #### 2 276-4, 2132-01, 2283-12 #### [facility] CLIA [id number] [address] [place] [address] [place] Eosinophils/100 WBC (Bld) 1.3 % Normal [facility] Comment on above: Order Comment: Speci men Type: BLOOD SPECIMEN Ordering Facility: [facility] Address: [address] [place] [address] Performed By: #### 2 276-4, 9, 2283-12 #### [facility] CLIA [id number] [address] [place] [address] [place] Erythrocyte distribution width (RBC) [Ratio] 12.6 % Normal 11.5-15.0 [facility] Comment on above: Order Comment: Speci men Type: BLOOD SPECIMEN Ordering Facility: [facility] Address: [address] [place] [address] Performed By: #### 2 276-4, 2132-01, 2283-12 #### [facility] CLIA [id number] [address] [place] [address] [place] Hematocrit (Bld) [Volume fraction] 38.0 % Normal 36.0-46.0 [facility] Comment on above: Order Comment: Speci men Type: BLOOD SPECIMEN Ordering Facility: [facility] Address: [address] [place] [address] Performed By: #### 2 276-4, 9, 2283-12 #### [facility] CLIA [id number] [address] [place] [address] [place] Hemoglobin (Bld) [Mass/Vol] 12.8 g/dL Normal 11.5-15.5 [facility] Comment on above: Order Comment: Speci men Type: BLOOD SPECIMEN Ordering Facility: [facility] Address: [address] [place] [address] Performed By: #### 2 276-4, 2132-01, 2283-12 #### [facility] CLIA [id number] [address] [place] [address] [place] Immature granulocytes (Bld) [#/Vol] 10*3/uL Normal <0.10 [facility] Comment on above: Order Comment: Speci men Type: BLOOD SPECIMEN Ordering Facility: [facility] Address: [address] [place] [address] Performed By: #### 2 276-4, 2132-01, 2283-12 #### [facility] CLIA [id number] [address] [place] [address] [place] Immature granulocytes/100 WBC (Bld) 0.1 % Normal [facility] Comment on above: Order Comment: Speci men Type: BLOOD SPECIMEN Ordering Facility: [facility] Address: [address] [place] [address] Performed By: #### 2 276-4, 2132-01, 2283-12 #### [facility] CLIA [id number] [address] [place] [address] [place] Lymphocytes (Bld) [#/Vol] 3.49 10*3/uL Normal 1.00-4.00 [facility] Comment on above: Order Comment: Speci men Type: BLOOD SPECIMEN Ordering Facility: [facility] Address: [address] [place] [address] Performed By: #### 2 276-4, 2132-01, 2283-12 #### [facility] CLIA [id number] [address] [place] [address] [place] Lymphocytes/100 WBC (Bld) 48.6 % Normal [facility] Comment on above: Order Comment: Speci men Type: BLOOD SPECIMEN Ordering Facility: [facility] Address: [address] [place] [address] Performed By: #### 2 276-4, 2132-01, 2283-12 #### [facility] CLIA [id number] [address] [place] [address] [place] MCH (RBC) [Entitic mass] 30.0 pg Normal 26.0-34.0 [facility] Comment on above: Order Comment: Speci men Type: BLOOD SPECIMEN Ordering Facility: [facility] Address: [address] [place] [address] Performed By: #### 2 276-4, 2132-01, 2283-12 #### [facility] CLIA [id number] [address] [place] [address] [place] MCHC (RBC) [Mass/Vol] 33.7 g/dL Normal 30.5-36.0 [facility] Comment on above: Order Comment: Speci men Type: BLOOD SPECIMEN Ordering Facility: [facility] Address: [address] [place] [address] Performed By: #### 2 276-4, 2132-01, 2283-12 #### [facility] CLIA [id number] [address] [place] [address] [place] MCV (RBC) [Entitic vol] 89.2 fL Normal 80.0-100.0 [facility] Comment on above: Order Comment: Speci men Type: BLOOD SPECIMEN Ordering Facility: [facility] Address: [address] [place] [address] Performed By: #### 2 276-4, 2132-01, 2283-12 #### [facility] CLIA [id number] [address] [place] [address] [place] Monocytes (Bld) [#/Vol] 0.48 10*3/uL Normal <0.87 [facility] Comment on above: Order Comment: Speci men Type: BLOOD SPECIMEN Ordering Facility: [facility] Address: [address] [place] [address] Performed By: #### 2 276-4, 2132-01, 2283-12 #### [facility] CLIA [id number] [address] [place] [address] [place] Monocytes/100 WBC (Bld) 6.7 % Normal [facility] Comment on above: Order Comment: Speci men Type: BLOOD SPECIMEN Ordering Facility: [facility] Address: [address] [place], [place] [address] Performed By: #### 2 276-4, 2132-01, 2283-12 #### [facility] CLIA [id number] [address] [place] [address] [place] Neutrophils (Bld) [#/Vol] 3.09 10*3/uL Normal 1.45-7.50 [facility] Comment on above: Order Comment: Speci men Type: BLOOD SPECIMEN Ordering Facility: [facility] Address: [address] [place] [address] Performed By: #### 2 276-4, 2132-01, 2283-12 #### [facility] CLIA [id number] [address] [place], [place] [address] [place] Neutrophils/100 WBC (Bld) 43.0 % Normal [facility] Comment on above: Order Comment: Speci men Type: BLOOD SPECIMEN Ordering Facility: [facility] Address: [address] [place], [place] [address] Performed By: #### 2 276-4, 2132-01, 2283-12 #### [facility] CLIA [id number] [address] [place] [address] [place] Nucleated RBC (Bld) [#/Vol] 10*3/uL Normal <0.01 [facility] Comment on above: Order Comment: Speci men Type: BLOOD SPECIMEN Ordering Facility: [facility] Address: [address] [place], [place] [address] Performed By: #### 2 276-4, 2132-01, 2283-12 #### [facility] CLIA [id number] [address] [place] [address] [place] Nucleated RBC/100 WBC (Bld) [Ratio] 0.0 /100 WBC Normal [facility] Comment on above: Order Comment: Speci men Type: BLOOD SPECIMEN Ordering Facility: [facility] Address: [address] [place] [address] Performed By: #### 2 276-4, 9, 8 #### [facility] CLIA [id number] [address] [place] [address] [place] Platelet mean volume (Bld) [Entitic vol] 9.2 fL Normal 9.0-12.7 [facility] Comment on above: Order Comment: Speci men Type: BLOOD SPECIMEN Ordering Facility: [facility] Address: [address] [place] [address] Performed By: #### 2 276-4, 9, 2283-12 #### [facility] CLIA [id number] [address] [place] [address] [place] Platelets (Bld) [#/Vol] 361 10*3/uL Normal 150-400 [facility] Comment on above: Order Comment: Speci men Type: BLOOD SPECIMEN Ordering Facility: [facility] Address: [address] [place] [address] Performed By: #### 2 276-4, 9, 8 #### [facility] CLIA [id number] [address] [place] [address] [place] RBC (Bld) [#/Vol] 4.26 10*6/uL Normal 3.90-5.20 [facility] Comment on above: Order Comment: Speci men Type: BLOOD SPECIMEN Ordering Facility: [facility] Address: [address] [place] [address] Performed By: #### 2 276-4, 9, 8 #### [facility] CLIA [id number] [address] [place] [address] [place] WBC (Bld) [#/Vol] 7.18 10*3/uL Normal 3.70-11.00 [facility] Comment on above: Order Comment: Speci men Type: BLOOD SPECIMEN Ordering Facility: [facility] Address: [address] [place] [address] Performed By: #### 2 276-4, 2132-9, 2284-8 #### [facility] CLIA [id number] [address] [place] [address] [place] Comprehensive metabolic 2000 panelon 09-05-2023 Albumin [Mass/Vol] 4.0 g/dL Normal 3.9-4.9 [facility] Comment on above: Order Comment: Speci men Type: BLOOD SPECIMEN Ordering Facility: [facility] Address: [address] [place] [address] Performed By: #### 2 4323-8 #### [facility] CLIA [id number] [address] [place] [address] ALP [Catalytic activity/Vol] 91 U/L Normal 34-123 [facility] Comment on above: Order Comment: Speci men Type: BLOOD SPECIMEN Ordering Facility: [facility] Address: [address] [place] [address] Performed By: #### 2 4323-8 #### [facility] CLIA [id number] [address] [place] [address] ALT [Catalytic activity/Vol] 15 U/L Normal 7-38 [facility] Comment on above: Order Comment: Speci men Type: BLOOD SPECIMEN Ordering Facility: [facility] Address: [address] [place] [address] Performed By: #### 2 4323-8 #### [facility] CLIA [id number] [address] [place] [address] Anion gap [Moles/Vol] 10 mmol/L Normal 9-18 [facility] Comment on above: Order Comment: Speci men Type: BLOOD SPECIMEN Ordering Facility: [facility] Address: [address] [place] [address] Performed By: #### 2 4323-8 #### [facility] CLIA [id number] [address] [place] [address] AST [Catalytic activity/Vol] 13 U/L Normal 13-35 [facility] Comment on above: Order Comment: Speci men Type: BLOOD SPECIMEN Ordering Facility: [facility] Address: [address] [place] [address] Performed By: #### 2 4323-8 #### [facility] CLIA [id number] [address] [place] [address] Bilirubin [Mass/Vol] 0.3 mg/dL Normal 0.2-1.3 [facility] Comment on above: Order Comment: Speci men Type: BLOOD SPECIMEN Ordering Facility: [facility] Address: [address] [place] [address] Performed By: #### 2 4323-8 #### [facility] CLIA [id number] [address] [place] [address] Calcium [Mass/Vol] 9.5 mg/dL Normal 8.5-10.2 [facility] Comment on above: Order Comment: Speci men Type: BLOOD SPECIMEN Ordering Facility: [facility] Address: [address] [place] [address] Performed By: #### 2 4323-8 #### [facility] CLIA [id number] [address] [place] [address] Chloride [Moles/Vol] 106 mmol/L High 97-105 [facility] Comment on above: Order Comment: Speci men Type: BLOOD SPECIMEN Ordering Facility: [facility] Address: [facility] [place] [id number] Performed By: #### 2 4323-8 #### [facility] CLIA [id number] [address] [place] [address] CO2 [Moles/Vol] 26 mmol/L Normal 22-30 [facility] Comment on above: Order Comment: Laury bradshaw Type: BLOOD SPECIMEN Ordering Facility: [facility] Address: [address] [place] [address] Performed By: #### 2 4323-8 #### [facility] CLIA [id number] [address] [place] [address] Creatinine [Mass/Vol] 0.75 mg/dL Normal 0.58-0.96 [facility] Comment on above: Order Comment: Abbii men Type: BLOOD SPECIMEN Ordering Facility: [facility] Address: [address] [place] [address] Performed By: #### 2 4323-8 #### [facility] CLIA [id number] [address] [place] [address] Creatinine and Glomerular filtration rate.predicted panel (S/P/Bld) 109 mL/min/1.73m??? Normal >=60 [facility] Comment on above: Order Comment: Laury bradshaw Type: BLOOD SPECIMEN Ordering Facility: [facility] Address: [address] [place] [address] Result Comment: Stephani mated Glomerular Filtration Rate [...] 4323-8 #### [facility] CLIA [id number] [address] [place] [address] Glucose [Mass/Vol] 104 mg/dL High 74-99 [facility] Comment on above: Order Comment: Laury bradshaw Type: BLOOD SPECIMEN Ordering Facility: [facility] Address: [address] [place], [place] [phone] Result Comment: The [place] Diabetes Association (ADA) provides guidance for cutoff [...] Standards of Medical Care in Diabetes 2016, [place] [employer] Association. Diabetes Care. 2016.39(Suppl 1). Performed By: #### 2 4323-8 #### [facility] CLIA [id number] [address] [place] [address] Potassium [Moles/Vol] 4.2 mmol/L Normal 3.7-5.1 [facility] Comment on above: Order Comment: Abbii men Type: BLOOD SPECIMEN Ordering Facility: [facility] Address: [address] [place] [address] Performed By: #### 2 4323-8 #### [facility] CLIA [id number] [address] [place] [address] Protein [Mass/Vol] 7.4 g/dL Normal 6.3-8.0 [facility] Comment on above: Order Comment: Abbii augustine Type: BLOOD SPECIMEN Ordering Facility: [facility] Address: [address] [place] [id number] Performed By: #### 2 4323-8 #### [facility] CLIA [id number] [address] [place] [address] Sodium [Moles/Vol] 142 mmol/L Normal 136-144 [facility] Comment on above: Order Comment: Speci men Type: BLOOD SPECIMEN Ordering Facility: [facility] Address: [address] [place] [address] Performed By: #### 2 4323-8 #### [facility] CLIA [id number] [address] [place] [address] Urea nitrogen [Mass/Vol] 12 mg/dL Normal 7-21 [facility] Comment on above: Order Comment: Speci men Type: BLOOD SPECIMEN Ordering Facility: [facility] Address: [address] [place] [address] Performed By: #### 2 4323-8 #### [facility] CLIA [id number] [address] [place] [address] Ferritin SerPl-mCncon 2023 Ferritin [Mass/Vol] 86.7 ng/mL Normal 14.7-205.1 [facility] Comment on above: Order Comment: Speci men Type: BLOOD SPECIMEN Ordering Facility: [facility] Address: [address] [place] [address] Performed By: #### 2 276-4, 2132-01, 2283-12 #### [facility] CLIA [id number] [address] [place] [address] [place] Folate SerPl-mCncon 09-05-19 Folate [Mass/Vol] 12.0 ng/mL Normal >4.7 [facility] Comment on above: Order Comment: Speci men Type: BLOOD SPECIMEN Ordering Facility: [facility] Address: [address] [place] [address] Performed By: #### 2 276-4, 2132-01, 2283-12 #### [facility] CLIA [id number] [address] [place] [address] [place] H. pylori IgG IA Qlon 2023 H. PYLORI IGG, QUAL Negative Normal Negative [facility] Comment on above: Order Comment: Speci augustine Type: BLOOD SPECIMEN Ordering Facility: [facility] Address: [address] [place] [address] Result Comment: Cash ot exclude H. pylori infection if the specimen collected 3-4 weeks after onset of symptoms. Performed By: #### 2 276-4, 2132-01, 2283-12 #### [facility] CLIA [id number] [address] [place] [address] [place] HbA1c (Bld)on 09-05-2023 Average glucose Estimated from glycated hemoglobin (Bld) [Mass/Vol] 108 mg/dL Normal [facility] Comment on above: Order Comment: Laury bradshaw Type: BLOOD SPECIMEN Ordering Facility: [facility] Address: [address] [place] [address] Result Comment: eAG: (Estimated average glucose) is a calculated value from HgbA1c and is sales representative [employer] of the average blood glucose level in the last 2-3 month period. Performed By: #### 5 5454-3 #### [facility] CLIA [id number] [address] [place] [address] [place] HbA1c (Bld) [Mass fraction] 5.4 % Normal 4.3-5.6 [facility] Comment on above: Order Comment: Laury bradshaw Type: BLOOD SPECIMEN Ordering Facility: [facility] Address: [address] [place] [address] Result Comment: [place] Diabetes Association guidelines indicate that patients with HgbA1c in the range 5.7-6.4% are at increased risk for development of diabetes, and intervention by lifestyle modification may be beneficial. HgbA1c greater or equal to 6.5% is considered diagnostic of diabetes. Performed By: #### 5 5454-3 #### [facility] CLIA [id number] [address] [place] [address] [place] Iron and Iron binding capaci ty panelon 09-05-2023 Iron [Mass/Vol] 94 ug/dL Normal 41-186 [facility] Comment on above: Order Comment: Laury bradshaw Type: BLOOD SPECIMEN Ordering Facility: [facility] Address: [address] [place] [address] Performed By: #### 5 0190-8, 3016-3, 67884-0 #### [facility] CLIA [id number] [address] [place] [address] [place] #### 80323-6 #### [facility] CLIA [id number] [address] [place] [address] [place] [facility] CLIA [id number] [address] [place], [place] [address] Iron binding capacity [Mass/Vol] 310 ug/dL Normal 232-386 [facility] Comment on above: Order Comment: Speci men Type: BLOOD SPECIMEN Ordering Facility: [facility] Address: [address] [place] [address] Performed By: #### 5 0190-8, 3016-3, 83509-0 #### [facility] CLIA [id number] [address] [place] [address] [place] #### 46413-7 #### [facility] CLIA [id number] [address] [place] [address] [place] [facility] CLIA [id number] [address] [place] [address] Iron/TIBC [Molar ratio] 30.3 % Normal 15.0-57.0 [facility] Comment on above: Order Comment: Speci men Type: BLOOD SPECIMEN Ordering Facility[facility] Address: [address] [place] [address] Performed By: #### 5 0190-8, 3016-3, 25817-8 #### [facility] CLIA [id number] [address] [place] [address] [place] #### 53161-6 #### [facility] CLIA [id number] [address] [place] [address] [place] [facility] CLIA [id number] [address] [place], [place] [address] Lipid 1996 panelon 4 Cholesterol [Mass/Vol] 179 mg/dL Normal <200 [facility] Comment on above: Order Comment: Speci men Type: BLOOD SPECIMEN Ordering Facility: [facility] Address: [address] [place], [place] [address] Result Comment: <200 mg/dL, Desirable 200-239 mg/dL, Borderline high >239 mg/dL, High Performed By: #### 2 276-4, 2132-01, 2283-12 #### [facility] CLIA [id number] [address] [place] [address] [place] Cholesterol in HDL [Mass/Vol] 45 mg/dL Normal >39 [facility] Comment on above: Order Comment: Laury augustine Type: BLOOD SPECIMEN Ordering Facility: [facility] Address: [address] [place] [address] Result Comment: 40-5 9 mg/dL, Acceptable >59 mg/dL, High: Negative risk factor for coronary heart disease <40 mg/dL, Low: Positive risk factor for coronary heart disease Performed By: #### 2 276-4, 2132-01, 2283-12 #### [facility] CLIA [id number] [address] [place] [address] [place] Cholesterol in LDL [Mass/Vol] 119 mg/dL High <100 [facility] Comment on above: Order Comment: La[facility] Type: BLOOD SPECIMEN Ordering Facility: [facility] Address: [address] [place] [address] Result Comment: <100 mg/dL, Optimal 100-129 mg/dL, Near optimal/above optimal 130-159 mg/dL, Borderline high 160-189 mg/dL, High >189 mg/dL, Very high Secondary prevention optimal LDL Cholesterol levels are recommended to be < 70 mg/dL Performed By: #### 2 276-4, 2132-01, 2283-12 #### [facility] CLIA [id number] [address] [place] [address] [place] Cholesterol in LDL/Cholesterol in HDL [Mass ratio] 2.64 {ratio} High <2.54 [facility] Comment on above: Order Comment: Laury augustine Type: BLOOD SPECIMEN Ordering Facility: [facility] Address: [address] [place] [address] Result Comment: Refe rence: 1. National Cholesterol Education Program ATP III Guideline At-A-Glance Quick Desk Reference: National Heart, Lung, and Blood [place]. National Institutes of Health. 2001: NIH Publication No. 01-3305. 2. An International Atherosclerosis Society position paper: global recommendations for the management of dyslipidemia: executive summary, Atherosclerosis. 2014: 232(2):410-413. Performed By: #### 2 276-4, 2132-01, 2283-12 #### [facility] CLIA [id number] [address] [place] [address] [place] Cholesterol in VLDL [Mass/Vol] 15 mg/dL Normal <30 [facility] Comment on above: Order Comment: Speci men Type: BLOOD SPECIMEN Ordering Facility: [facility] Address: [address] [place] [address] Performed By: #### 2 276-4, 2132-01, 2283-12 #### [facility] CLIA [id number] [address] [place] [address] [place] Cholesterol non HDL [Mass/Vol] 134 mg/dL High <130 [facility] Comment on above: Order Comment: Laury bradshaw Type: BLOOD SPECIMEN Ordering Facility: [facility] Address: [address] [place] [address] Result Comment: <130 mg/dL, Optimal 130-159 mg/dL, Near optimal/above optimal 160-189 mg/dL, Borderline high 190-219 mg/dL, High >219 mg/dL, Very high Secondary prevention optimal non HDL Cholesterol levels are recommended to be <100 mg/dL Performed By: #### 2 276-4, 2132-01, 2283-12 #### [facility] CLIA [id number] [address] [place] [address] [place] Cholesterol.total/Cho lesterol in HDL [Mass ratio] 3.98 {ratio} Normal <5.10 [facility] Comment on above: Order Comment: Laury bradshaw Type: BLOOD SPECIMEN Ordering Facility: [facility] Address: [address] [place] [address] Performed By: #### 2 276-4, 2132-01, 2283-12 #### [facility] CLIA [id number] [address] [place] [address] [place] FASTING TIME 12 hrs Normal [facility] Comment on above: Order Comment: Speci men Type: BLOOD SPECIMEN Ordering Facility: [facility] Address: [address] [place] [address] Performed By: #### 2 276-4, 9, 2283-12 #### [facility] CLIA [id number] [address] [place] [address] [place] Triglyceride [Mass/Vol] 74 mg/dL Normal <150 [facility] Comment on above: Order Comment: Speci men Type: BLOOD SPECIMEN Ordering Facility: [facility] Address: [address] [place] [address] Result Comment: <150 mg/dL, Normal 150-199 mg/dL, Borderline high 200-499 mg/dL, High >499 mg/dL, Very high Performed By: #### 2 276-4, 2132-01, 2283-12 #### [facility] CLIA [id number] [address] [place] [address] [place] NT-proBNP SerPl-oneliaon 09-04 Natriuretic peptide.B prohormone N-Terminal [Mass/Vol] 48 pg/mL Normal <125 [facility] Comment on above: Order Comment: Speci men Type: BLOOD SPECIMEN Ordering Facility: [facility] Address: [address] [place] [address] Performed By: #### 2 276-4, 2132-01, 2283-12 #### [facility] CLIA [id number] [address] [place] [address] [place] TSH SerPl-aCncon 09-05-2023 TSH Qn 6.440 m[IU]/L High 0.270-4.200 [facility] Comment on above: Order Comment: Speci men Type: BLOOD SPECIMEN Ordering Facility: [facility] Address: [address] [place] [address] Result Comment: If t he patient is , TSH reference range varies by gestational period: First Trimester (weeks 9-12): 0.180-2.990 mIU/L Second Trimester: 0.110-3.980 mIU/L Third Trimester: 0.480-4.710 mIU/L Seth Crews et al. A Practical Approach for the Verifications and Determination of Site- and Trimester-Specific Reference Intervals for Thyroid Function tests in . Thyroid, 2019:29:3:412-420. Zhang Ybarra, et al. 2017 Guidelines of the [place] Thy[employer] Association for the Diagnosis and Management of Thyroid Disease during and the . Thyroid, 2017:27:3:315-389. Performed By: #### 2 276-4, 2132-9, 2284-8 #### [facility] CLIA [id number] [address] [place] [address] [place] VITAMIN B1 (THIAMINE), WHOLE BLOODon 09-05-2023 Thiamine (Bld) [Moles/Vol] 179.2 nmol/L Normal 84.3-213.3 [facility] Comment on above: Order Comment: Speci men Type: BLOOD SPECIMEN Ordering Facility: [facility] Address: [address] [place] [address] Result Comment: This assay measures the concentration of thiamine diphosphate (TDP), the primary active form of vitamin B1. Approximately 90 percent of vitamin B1 present in whole blood is TDP. Thiamine and thiamine monophosphate, which comprise the remaining 10 percent, are not measured. This test was developed and its performance characteristics determined by [facility]'s [facility]ology [facility] [place] (-[facility]). It has not been cleared or approved by the FDA. [facility] is regulated under CLIA as qualified to perform high-complexity testing. This test is used for clinical purposes. It should not be regarded as investigational or for research. Performed By: #### B 1WB #### [facility] CLIA [id number] [address] [place] [address] [place] Vit B12 SerPl-mCncon 024 Cobalamin (Vitamin B12) [Mass/Vol] 612 pg/mL Normal 232-1245 [facility] Comment on above: Order Comment: Speci men Type: BLOOD SPECIMEN Ordering Facility: [facility] Address: [address] [place] [address] Performed By: #### 2 276-4, 2132-9, 2284-8 #### [facility] CLIA [id number] [address] [place] [address] [id number] [place] [address] [place] Glucose - FINGER STICKon Glucose [Mass/Vol] 5.4 mg/dL [employer] Other PAP ACOG PANEL 2: 30 to 65on 06-10-2022 . . Normal Comment on above: Result Comment: Perf ormed at: WB Performed By: #### 4 [id number] #### [facility] [address] [address] [address] Sachin Coates Age Gdln ACOG Testing Normal Comment on above: Performed By: #### 4 [id number] #### [facility] [address] [address] [address] Sachin Coates DIAGNOSIS: Comment Normal Comment on above: Result Comment: NEGA TIVE FOR INTRAEPITHELIAL LESION OR MALIGNANCY. CELLULAR CHANGES ASSOCIATED WITH INFLAMMATION ARE PRESENT. THIS SPECIMEN WAS RESCREENED PART OF OUR RETENTION SPECIALIST PROGRAM. Performed at: WB Performed By: #### 4 [id number] #### [facility] [address] [address] [address] Sachin Coates HPV Aptima Negative Normal Negative Comment on above: Result Comment: This nucleic acid amplification test detects fourteen high-risk HPV types (16,18,31,33,35,39,45,51,52,56,58,59,66,68) without differentiation. Performed at: =G Performed By: #### 4 [id number] #### [facility] [address] [address] [address] Sachin Coates HPV Genotype Reflex Comment Normal [facility] Comment on above: Result Comment: Crit eria not met, HPV Genotype not performed. Performed at: WB Performed By: #### 4 [id number] #### [facility] [address] [place] [address] Dr. Sachin Coates Methodology: Comment [facility] Comment on above: Result Comment: This liquid based ThinPrep(R) pap test was screened with the use of an image guided system. Performed at: WB Performed By: #### 4 [id number] #### [facility] [address] [place] [address] Dr. Sachin Coates Note: Comment Normal Comment on above: Result Comment: The Pap smear is a screening test designed to aid in the detection of premalignant and malignant conditions of the uterine cervix. It is not a diagnostic procedure and should not be used as the sole means of detecting cervical cancer. Both false-positive and false-negative reports do occur. . Performed at: WB Performed By: #### 4 [id number] #### [facility] [address] [place] [address] Dr. Sachin Coates Performed by: Comment Normal [facility] Comment on above: Result Comment: Peyton Beverly, [employer] Worker (ASCP) Performed at: WB Performed By: #### 4 [id number] #### [facility] [address] [place] [address] Dr. Sachin Coates QC reviewed by: Comment Normal [facility] Comment on above: Result Comment: Cielo Cochran, Supervisory [employer] Worker (ASCP) Performed at: WB Performed By: #### 4 [id number] #### [facility] [address] [place] [address] Dr. Sachin Coates Specimen adequacy: Comment Normal [facility] Comment on above: Result Comment: Sati sfactory for evaluation. Endocervical and/or squamous metaplastic cells (endocervical component) are present. Performed at: WB Performed By: #### 4 [id number] #### [facility] [address] [place] [address] Dr. Sachin Coates COVID-19 SOFIAOrdered By: Dario To on 12-02-2021 SARS-CoV+SARS-CoV-2 (COVID-19) Ag IA.rapid Ql (Resp) Negative Negative [facility] Comment on above: This is a duplicate Zuleyma SARS Antigen (PAMELLA) result to be used for statistical tracking purpose only. No Panel InformationOrdered By: Ck To on 12-02-2021 SARS Antigen (LFIA) [facility] Chart Updateon 08-08-2020 Chart Update Chart Update [...] Aug 08 2020 10:18AM EST (Author) Normal [facility] BLENDING TANK TENDER - Procedure Visiton 0 07-10-2020 BLENDING TANK TENDER - Procedure Visit Chief Complaint IUI Active [...] adiol measurement is performed using the [employer] Access Sensitive Estradiol Immunoassay. Estradiol testing is performed using a different test methodology at [facility] than other [facility]. Direct result comparison should only be made within the same method. REF VALUES EARLY FOLLICULAR 22-115 MID FOLLICULAR 25-115 OVULATORY PEAK 32-517 MID LUTEAL 37-246 POSTMENOPAUSE <15- 25 MALE <15- 32 Performed By: #### G CCHA #### [facility] [address] [place] [address] Estradiol, Serumon E2 [Mass/Vol] 186 pg/mL MG-OBGYN-Ri sm an 310 IVF Work Phone: Comment on above: Estradiol measuremen t is performed using the [employer] Access Sensitive Estradiol Immunoassay. Estradiol testing is performed using a different test methodology at [facility] than other [facility]. Direct result comparison should only be made within the same method.REF VALUESEARLY FOLLICULAR 22-115MID FOLLICULAR 25-115OVULATORY PEAK 32-517MID LUTEAL 37-246POSTMENOPAUSE <15- 25MALE <15- 32 LUTEINIZING HORMONEon 2020 LUTEINIZING HORMONE 9.5 IU/L Normal [facility] Comment on above: Result Comment: Lute inizing Hormone [LH] is performed using the [employer] [place] Access Immunoassay. LH testing is performed using a different test methodology at [facility] than other [facility]. Direct result comparison should only be made within the same method. REF VALUES FOLLICULAR PHASE 1.5-10.0 MID-CYCLE 13.0-72.0 LUTEAL PHASE 0.5-13.0 MENOPAUSE 15.0-65.0 PREPUBERTY 0- 3.0 CHILDREN 0- 6.0 ADULT MALE 1.0- 9.0 Performed By: #### G CCHA #### [facility] [address] [place] [address] Luteinizing Hormone, Serumon 07-08-2020 Lutropin Qn 9.5 {IU/L} OS-LTVSG-Zzsn an 310 IVF Work Phone: Comment on above: Luteinizing Hormone [LH] is performed using the Shruth[employer] [place] Access Immunoassay. LH testing is performed using a different test methodology at [facility] than other [facility]. Direct result comparison should only be made within the same method.REF VALUESFOLLICULAR PHASE 1.5-10.0MID-CYCLE 13.0-72.0LUTEAL PHASE 0.5-13.0MENOPAUSE 15.0-65.0PREPUBERTY 0- 3.0CHILDREN 0- 6.0ADULT MALE 1.0- 9.0 TYPE + SCREENon 07-06-2020 ABO TYPE A Normal [facility] Comment on above: Performed By: #### T +S #### [facility] [address] [place] [address] RH TYPE Positive Normal [facility] Comment on above: Performed By: #### T +S #### [facility] [address] [place] [address] ESTRADIOLon 07-05-2020 ESTRADIOL 58 pg/mL Normal [facility] Comment on above: Result Comment: Estr adiol measurement is performed using the [employer] [place] Access Sensitive Estradiol Immunoassay. Estradiol testing is performed using a different test methodology at [facility] than other [facility]. Direct result comparison should only be made within the same method. REF VALUES EARLY FOLLICULAR 22-115 MID FOLLICULAR 25-115 OVULATORY PEAK 32-517 MID LUTEAL 37-246 POSTMENOPAUSE <15- 25 MALE <15- 32 Performed By: #### G CCHA #### [facility] [address] [place] [address] Estradiol, Serumon E2 [Mass/Vol] 58 pg/mL MG-OBGYN-Ri sm an 310 IVF Work Phone: Comment on above: Estradiol measuremen t is performed using the [employer] [place] Access Sensitive Estradiol Immunoassay. Estradiol testing is performed using a different test methodology at [facility] than other [facility]. Direct result comparison should only be made within the same method.REF VALUESEARLY FOLLICULAR 22-115MID FOLLICULAR 25-115OVULATORY PEAK 32-517MID LUTEAL 37-246POSTMENOPAUSE <15- 25MALE <15- 32 Hematologyon 07-05-2020 ABO group Nom (Bld) A MG-HUMANITIES DIVISION CHAIR-Rism an 310 IVF Work Phone: Blood group antibody screen Ql Negative NG-SWYYI-Qmlr an 310 IVF Work Phone: Rh immune globulin screen (Bld) [Interp] Positive MG-OBGYN-R ism an 310 IVF Work Phone: LUTEINIZING HORMONEon 2020 LUTEINIZING HORMONE 9.2 IU/L Normal [facility] Comment on above: Result Comment: Lute inizing Hormone [LH] is performed using the Shruthi [place] Access Immunoassay. LH testing is performed using a different test methodology at [facility] than other [facility]. Direct result comparison should only be made within the same method. REF VALUES FOLLICULAR PHASE 1.5-10.0 MID-CYCLE 13.0-72.0 LUTEAL PHASE 0.5-13.0 MENOPAUSE 15.0-65.0 PREPUBERTY 0- 3.0 CHILDREN 0- 6.0 ADULT MALE 1.0- 9.0 Performed By: #### L H #### [facility] [address] [place] [address] Luteinizing Hormone, Serumon 07-05-2020 Lutropin Qn 9.2 {IU/L} HM-ONCNQ-Qwhk an 310 IVF Work Phone: Comment on above: Luteinizing Hormone [LH] is performed using the [employer]uthi [employer] Access Immunoassay. LH testing is performed using a different test methodology at [facility] than other [facility]. Direct result comparison should only be made within the same method.REF VALUESFOLLICULAR PHASE 1.5-10.0MID-CYCLE 13.0-72.0LUTEAL PHASE 0.5-13.0MENOPAUSE 15.0-65.0PREPUBERTY 0- 3.0CHILDREN 0- 6.0ADULT MALE 1.0- 9.0 BLENDING TANK TENDER - Office Visiton 02- BLENDING TANK TENDER - Office Visit Diagnoses/Problems Assessed Morbid obesity [...] MD [facility] [phone] [place] [phone] [place] 1 Amended By: Bayron Mccarty; Jun 19 [...] MD [facility] [phone] [place] [phone] [place] Appointment Duration:. 25 minutes; greater than half of the time was spent on counseling. 1 Amended By: Bayron Mccarty; Jun 19 2020 10:16 AM ESTChief Complaint follow up History of Present Ukpoggu6506/19/2020 9:30AM JALEESA ARRIETA , 30 year is contacted for an (audio-visual, or audio only) Telehealth visit. Today's visit was provided through telemedicine conferencing: Using [employer] platform. Consent: The concept of telemedicine? has [...] is a telehealth appointment Results/Data HCG, Beta [id number] 11:58AMBayron Mccarty Test NameResultFlagReference HCG, Beta Quantitative<2 [...] performed using a different test methodology at [facility] than other [facility]. Direct result comparison should only be made within the same method. REF VALUES NON FEMALE <5 MALES <5 Progesterone, [id number] 11:58AMBayron Mccarty Test NameResultFlagReference Progesterone, Serum10.5 ng/mL REF VALUES MALE <0.3- 1.2 FOLLICULAR PHASE <0.3- 1.4 LUTEAL PHASE 3.3-25.6 MID-LUTEAL PHASE 4.4-28.0 POSTMENOPAUSAL <0.3- 0.7 FEMALES: 1ST TRIMESTER 11.2- 90.0 2ND TRIMESTER 25.6- 89.4 3RD TRIMESTER 48.4-422.5 . Patients receiving DHEA-S supplements may show false elevation of progesterone for results near 1.0 ng/mL. Contact laboratory at [phone] if alternative testing is needed. CMV IgG and IgM [id number] 11:58AMBayron Mccarty Test NameResultFlagReference CMV IgG AntibodyREACTIVEASee Below Reference Range: NONREACTIVE CMV IGM [id number] 11:58AMBayron Mccarty Test NameResultFlagReference CMV IGM AB<30.00 [...] testing in two or more weeks. Xray Fdnghdrruxythrnynpq76Ubw 2020 12:00AMBaryon Mccarty [Mar 28, 2020 9:43AM Bayron Mccarty] Reason: Unspecified for Xray Hysterosalpingogram Test NameResultFlagReference Xray Hysterosalpingogram Please click on the link to view the study images Anti Mullerian [id number] 12:03PMBayron Mccarty Test NameResultFlagReference Anti Mullerian Hormone6.36 ng/mL For assays employing antibodies, the possibility exists for interference by heterophile antibodies in the samples.1 1.Oswald Crews. Interferences in Immunoassays - still a threat. Clin. Chem. 2000; 46: 7165-0981. This test was developed and its performance characteristics determined by [employer]. It has not been cleared or approved by the Food and Drug Administration. Reference Range: Females 26 - 30y: 1.03 - 11.10 Median 4.20 AMH concentrations of >= 1.06 ng/mL is correlated with a better response to ovarian stimulation, produced more retrievable oocytes and higher odds of live according to Gleicher et al. Fertility and Sterility. 2010: 94:4624-0301. The current AMH test method correlates with [...] exclude an AMH-secreting ovarian tumor. Rubella IgG Smumszne62Oer0763 12:03PMBayron Mccarty Test NameResultFlagReference Rubella IgG AntibodyPOSITIVE [...] TSH WITH REFLEX TO FREE T4 IF [id number] 12:03PMBayron Mccarty Test NameResultFlagReference Thyroid Stimulating Hormone, Serum2.17 mIU/LSee Below Reference Range: 0.44 - 3.98 TSH testing is performed using different testing methodology at [facility] than at other [facility]. Direct result comparisons should only be made within the same method. Varicella Zoster IgG [id number] 12:03PMBayron Mccarty Test NameResultFlagReference Varicella Zoster IgG [...] altered results in serological assays. Vitamin D 25-Pkamokx14Kvy2202 12:03Bayron Mccarty Test NameResultFlagReference Vitamin D 25-Hydroxy, Level17 ng/mLA . DEFICIENCY: < 20 NG/ML INSUFFICIENCY: 20-29 NG/ML SUFFICIENCY: 30-100 NG/ML THIS ASSAY ACCURATELY QUANTIFIES THE SUM OF VITAMIN D3, 25-HYDROXY AND VIT D2,25-HYDROXY. { 17-Hydroxyprogesterone, [id number] 12:03PMBayron Mccarty Test NameResultFlagReference 17-Hydroxyprogesterone, Serum33 ng/dL [...] Endocrinol Metab. 1991;73:674-686; J Clin Endocrinol Metab. 1989;69;2704-7675; J Clin Endocrinol Metab. 1994;78:226-270. Pediatr Res 1988;23:525-529. MedLinePlus (accessed 10/25/13). This test was developed and its analytical performance characteristics have been determined by [employer] It has not been cleared or approved by the U.S. Food and Drug Administration. This assay has been validated pursuant to the CLIA regulations and is used for clinical purposes. DHEA Sulfate, [id number] 12:03PMBayron Mccarty Test NameResultFlagReference DHEA Sulfate, Xqoqu168 ug/dL65 - 395 MATURITY-BASED REFERENCE RANGES: PUBERTAL [...] laboratory for further information. Testosterone Free + [id number] 12:03PMBayron Mccarty Test NameResultFlagReference Testosterone, Total63 ng/dLH2-45 For additional information, please refer to [email or web address] TotalTestosteroneLCMSMSF AQ165 (This link is being provided for informational/ educational purposes only.) This test was developed and its analytical performance characteristics have been determined by [employer] [place], [place]. It has not been cleared or approved by the U.S. Food and Drug Administration. This assay has been validated pursuant to the CLIA regulations and is used for clinical purposes. Testosterone, Free Serum8.8 pg/mLH0.1-6.4 This test was developed and its analytical performance characteristics have been determined by [employer] [place], [place]. It has not been cleared or approved by the U.S. Food and Drug Administration. This assay has been validated pursuant to the CLIA regulations and is used for clinical purposes. Hemoglobin [id number] 12:03PMBayron Mccarty Test NameResultFlagReference Hemoglobin A1C, Level5.5 % Diagnosis of Diabetes-Adults Non-Diabetic: < or = 5.6% Increased risk for developing diabetes: 5.7-6.4% Diagnostic of diabetes: > or = 6.5% . Monitoring of Diabetes Age (y) Therapeutic Goal (%) Adults: >18 <7.0 Pediatrics: 13-18 <7.5 7-12 <8.0 0- 6 7.5-8.5 [place] [employer]. Diabetes Care 33(S1), May 2009. Estimated Average Hfbjgwx964 MG/DL GC + Chlamydia By Amplified [id number] 12:03PMBayron Mccarty Test NameResultFlagReference N.GONORRHEA,AMPLIFIEDNEG ATIVENegative SOURCE: Urine Chlamydia Trach, AmplifiedNEGATIVENegativ e Hepatitis B Surface [id number] 12:03PMBayron Mccarty NameResultReference Hep.B Surface AgNONREACTIVESee Below Reference Range: NONREACTIVE Biotin interference may cause falsely decreased results. Patients taking a Biotin dose of up to 5 mg/day should refrain from taking Biotin for 24 hours before sample collection. Providers may contact their local laboratory for further information. Hepatitis C Antibody [id number] 12:03PMBayron Mccarty NameResultFlagReference Hepatitis C-AntibodyNONREACTIVESee Below Reference Range: NONREACTIVE Results from patients taking biotin supplements or receiving high-dose biotin therapy should be interpreted with caution due to possible interference with this test. Providers may contact their local laboratory for further information. HIV 1/2 ANTIGEN/ANTIBODY SCREEN WITH REFLEX TO [id number] 12:03PMBibiana Bayron Test NameResultFlagReference HIV 1/2 AG/AB SCREENNONREACTIVESee Below Reference Range: NONREACTIVE HIV Ag/Ab screen is performed using the Siemens [employer] HIV Ag/Ab Combo assay which detects the presence of HIV p24 antigen as well as antibodies to HIV-1 (Group M and O) and HIV-2. SYPHILIS SCREENING WITH [id number] 12:03PMBayron Mccarty Test NameResultFlagReference SYPHILIS TOTAL ANTIBODYNONREACTIVESee Below SOURCE: Reference Range: NONREACTIVE No significant level of Treponema pallidum antibody detected. Repeat testing in 2 to 4 weeks may be considered if early infection or incubating syphilis infection is suspected. Signatures Electronically signed by : Bayron Mccarty MD; Jun 19 2020 10:16AM EST (Author) Normal [facility] CMV IGM ABon 04-20-2020 CMV IGM AB <30.00 Normal [facility] Comment on above: Result Comment: [...] weeks. Performed By: #### C MVM2 #### [facility] [address] [place] [address] CMV IGG AND IGM ABon 020 CMV IGG AB REACTIVE Abnormal NONREACTIVE [facility] Comment on above: Performed By: #### C MV2 #### [facility] [address] [place] [address] PROGESTERONEon 04-16-2020 PROGESTERONE 10.5 ng/mL Normal [facility] Comment on above: Result Comment: REF VALUES MALE <0.3- 1.2 FOLLICULAR PHASE <0.3- 1.4 LUTEAL PHASE 3.3-25.6 MID-LUTEAL PHASE 4.4-28.0 POSTMENOPAUSAL <0.3- 0.7 FEMALES: 1ST TRIMESTER 11.2- 90.0 2ND TRIMESTER 25.6- 89.4 3RD TRIMESTER 48.4-422.5 . Patients receiving DHEA-S supplements may show false elevation of progesterone for results near 1.0 ng/mL. Contact laboratory at [phone] if alternative testing is needed. Performed By: #### P BOBBY #### [facility] [address] [place] [address] HCG,BETA-QUANTITATIVEon HCG,BETA-QUANTITATIVE <2 Normal [facility] Comment on above: Result Comment: [...] performed using a different test methodology at [facility] than other [facility]. Direct result comparison should only be made within the same method. REF VALUES NON FEMALE <5 MALES <5 Performed By: #### H CGQU #### [address] [id number] BLENDING TANK TENDER - Office Visiton BLENDING TANK TENDER - Office Visit Chief Complaint An interactive [...] test results. Roby JEWELL. History of Present Sxceyio19/08/2019 9:30AM JALEESA ARRIETA , 30 year is contacted for an (audio-visual, or audio only) Telehealth visit. Today's visit was provided through telemedicine conferencing: Using [employer] platform. Consent: The concept of telemedicine? has [...] today's encounter visit: Bayron Mccarty MD MARIANA Laczano is a 30-year-old female who is here today in follow-up of fertility testing. This patient desires to proceed with single-parent procreation with donor sperm. She has a history of oligomenorrhea and obesity. Work-up to date is as seen below: HSG shows a normal cavity and patent right fallopian tube. The left fallopian tube was surgically absent. Seen by Dr. Maradiaga with [facility], please see his recommendations. Patient was found [...] 2020 1:15:24 PM Vitals Vital Signs Recorded: [id number] 09:08AM Height5 ft 6 in Mlkliy463 lb BMI Labznlbrjf29.81 BSA Calculated2.34 AFB54Uxn8223 Gravida1 Para0 Pain Scale0 Physical Exam This is a telehealth appointment Results/Data Anti Mullerian [id number] 12:03PMBayron Mccarty Test NameResultFlagReference Anti Mullerian Hormone6.36 ng/mL For assays employing antibodies, the possibility exists for interference by heterophile antibodies in the samples.1 1.Oswald Crews. Interferences in Immunoassays - still a threat. Clin. Chem. 2000; 46: 5334-4789. This test was developed and its performance characteristics determined by [employer]. It has not been cleared or approved by the Food and Drug Administration. Reference Range: Females 26 - 30y: 1.03 - 11.10 Median 4.20 AMH concentrations of >= 1.06 ng/mL is correlated with a better response to ovarian stimulation, produced more retrievable oocytes and higher odds of live according to Gleicher et al. Fertility and Sterility. 2010: 94:5395-9558. The current AMH test method correlates with [...] exclude an AMH-secreting ovarian tumor. Anti Mullerian Czzwufv65Oop2142 12:03PMBayron Mccarty Test NameResultFlagReference Anti Mullerian Hormone6.36 ng/mL For assays employing antibodies, the possibility exists for interference by heterophile antibodies in the samples.1 1.Oswald Brunner Interferences in Immunoassays - still a threat. Clin. Chem. 2000; 46: 4218-5610. This test was developed and its performance characteristics determined by [employer]. It has not been cleared or approved by the Food and Drug Administration. Reference Range: Females 26 - 30y: 1.03 - 11.10 Median 4.20 AMH concentrations of >= 1.06 ng/mL is correlated with a better response to ovarian stimulation, produced more retrievable oocytes and higher odds of live according to Carey et al. Fertility and Sterility. 2010: 94:1588-3368. The current AMH test method correlates with [...] exclude an AMH-secreting ovarian tumor. Rubella IgG [id number] 12:03PMBayron Mccarty Test NameResultFlagReference Rubella IgG AntibodyPOSITIVE [...] TSH WITH REFLEX TO FREE T4 IF [id number] 12:03PMBayron Mccarty Test NameResultFlagReference Thyroid Stimulating Hormone, Serum2.17 mIU/LSee Below Reference Range: 0.44 - 3.98 TSH testing is performed using different testing methodology at [facility] than at other system hospitals. Direct result comparisons should only be made within the same method. Varicella Zoster IgG Zhpjegqf65Xpt2186 12:03PMYuniorBayron polanco Test NameResultFlagReference Varicella Zoster IgG [...] altered results in serological assays. Vitamin D 25-Iklghsr75Nix9403 12:03PMBibianaBayron Test NameResultFlagReference Vitamin D 25-Hydroxy, Level17 ng/mLA . DEFICIENCY: < 20 NG/ML INSUFFICIENCY: 20-29 NG/ML SUFFICIENCY: 30-100 NG/ML THIS ASSAY ACCURATELY QUANTIFIES THE SUM OF VITAMIN D3, 25-HYDROXY AND VIT D2,25-HYDROXY. { 17-Hydroxyprogesterone, Josdu69Pph1498 12:03ChristopherBayron mccarthy Test NameResultFlagReference 17-Hydroxyprogesterone, Serum33 ng/dL Unable to [...] Endocrinol Metab. 1991;73:674-686; J Clin Endocrinol Metab. 1989;69;3355-5046; J Clin Endocrinol Metab. 1994;78:226-270. Pediatr Res 1988;23:525-529. MedLinePlus (accessed 10/25/13). This test was developed and its analytical performance characteristics have been determined by [facility] [place], [place]. It has not been cleared or approved by the U.S. Food and Drug Administration. This assay has been validated pursuant to the CLIA regulations and is used for clinical purposes. DHEA Sulfate, Voskf73Jlm7517 12:03PMBayron Mccarty Test NameResultFlagReference DHEA Sulfate, Ftpbb319 ug/dL65 - 395 MATURITY-BASED REFERENCE RANGES: PUBERTAL [...] laboratory for further information. Testosterone Free + Undzi83Eru7392 12:03PMBayron Mccarty Test NameResultFlagReference Testosterone, Total63 ng/dLH2-45 For additional information, please refer to http://education.[employer]/faq/ TotalTestosteroneLCMSMSF AQ165 (This link is being provided for informational/ educational purposes only.) This test was developed and its analytical performance characteristics have been determined by [facility] [place]. It has not been cleared or approved by the U.S. Food and Drug Administration. This assay has been validated pursuant to the CLIA regulations and is used for clinical purposes. Testosterone, Free Serum8.8 pg/mLH0.1-6.4 This test was developed and its analytical performance characteristics have been determined by [facility] [place]. It has not been cleared or approved by the U.S. Food and Drug Administration. This assay has been validated pursuant to the CLIA regulations and is used for clinical purposes. Hemoglobin [id number] 12:03PMBayron Mccarty Test NameResultFlagReference Hemoglobin A1C, Level5.5 % Diagnosis of Diabetes-Adults Non-Diabetic: < or = 5.6% Increased risk for developing diabetes: 5.7-6.4% Diagnostic of diabetes: > or = 6.5% . Monitoring of Diabetes Age (y) Therapeutic Goal (%) Adults: >18 <7.0 Pediatrics: 13-18 <7.5 7-12 <8.0 0- 6 7.5-8.5 [place] [employer]. Diabetes Care 33(S1), May 2009. Estimated Average Lyzfdwi700 MG/DL GC + Chlamydia By Amplified Dsecciugz12Vxs6900 12:03PMBayron Mccarty Test NameResultFlagReference N.GONORRHEA,AMPLIFIEDNEG ATIVENegative SOURCE: Urine Chlamydia Trach, AmplifiedNEGATIVENegativ e Hepatitis B Surface Xktozsj23Mac0344 12:03PMBayron Mccarty Test NameResultFlagReference Hep.B Surface AgNONREACTIVESee Below Reference Range: NONREACTIVE Biotin interference may cause falsely decreased results. Patients taking a Biotin dose of up to 5 mg/day should refrain from taking Biotin for 24 hours before sample collection. Providers may contact their local laboratory for further information. Hepatitis C Antibody Hdvn67Hyq5724 12:03PMBayron Mccarty NameResultRefduncane Hepatitis C-AntibodyNONREACTIVESee Below Reference Range: NONREACTIVE Results from patients taking biotin supplements or receiving high-dose biotin therapy should be interpreted with caution due to possible interference with this test. Providers may contact their local laboratory for further information. HIV 1/2 ANTIGEN/ANTIBODY SCREEN WITH REFLEX TO [id number] 12:03Bayron Mccarty NameResultReference HIV 1/2 AG/AB SCREENNONREACTIVESee Below Reference Range: NONREACTIVE HIV Ag/Ab screen is performed using the Siemens The Vetted NetllLogRhythm HIV Ag/Ab Combo assay which detects the presence of HIV p24 antigen as well as antibodies to HIV-1 (Group M and O) and HIV-2. SYPHILIS SCREENING WITH [id number] 12:03PMBayron Mccarty NameResultFlagReference SYPHILIS TOTAL ANTIBODYNONREACTIVESee Below SOURCE: Reference Range: NONREACTIVE No significant level of Treponema pallidum antibody detected. Repeat testing in 2 to 4 weeks may be considered if early infection or incubating syphilis infection is suspected. Diagnoses/Problems Irregular menses (626.4) (N92.6) Morbid obesity (278.01) (E66.01) Orders HCG, Beta Quantitative; Status:Active; Requested for:21Ufy3461; Perform:Lab Services - Lab To Draw (Blood Test); Due:13Jul2020;Ordered; For:Irregular menses; Ordered By:Bayorn Mccarty; Progesterone, Serum; Status:Active; Requested for:22Yve1509; Perform:Lab Services - Lab To Draw (Blood Test); Due:27Hpi6600;Ordered; For:Irregular menses; Ordered By:Bayron Mccarty; Provider Impressions [...] [facility] [phone] [place] [phone] [place] Appointment Duration:. 25 minutes; greater than [...] MD [facility] [phone] [place] [phone] [place] 1 Amended By: Bayron Mccarty; Apr 14 2020 4:50 PM ESTSignatures Electronically signed by : Bayron Mccarty MD; Apr 14 2020 4:51PM EST (Author) Normal [employer] TENDER - Procedure Visiton 1 05-28-2019 BLENDING TANK TENDER - Procedure Visit Chief Complaint pt presents [...] 1 CAPSULE EVERY 12 HOURS DAILY; Therapy: 94Aea5482 to (Evaluate:11Bkz1348) Requested for: 37Hle3192; Last Rx:88Atx8707 Ordered Rx By: Bayron Mccarty; Dispense: 5 Days ; #:10 Capsule; Refill: 0;For: Fertility testing; KEVIN = N; Verified Transmission to [place] [address]; Msg to Pharmacy: start medication the night [...] Signatures Electronically signed by : Kelle Vaz APRN-MERON; Mar 28 2020 4:10PM EST (Author) Normal [employer]ENDING [employer]ANK TENDER - Office Visiton 11-0 BLENDING TANK TENDER - Office Visit Chief Complaint The patient [...] consultation for obesity. Other than obesity Dr. Munozon denies any other significant past medical history. Specifically she denies a history of CHTN or TIIDM. Her BP at her most recent visit was normal and her HgA1c in January was 5.5%. She is considering single parent procreation. Her usual [employer] Supervisor with whom she would plan to follow with for care in a future is Dr. Ng in [place]. Active Problems Female infertility (628.9) (N97.9) Fertility [...] 1 CAPSULE EVERY 12 HOURS DAILY; Therapy: 87Mvj7327 to (Evaluate:25Ool9955) Requested for: 20Wfc3058; Last Rx:99Qrd5014 Ordered Rx By: Bayron Mccarty; Dispense: 5 Days ; #:10 Capsule; Refill: 0; For: Fertility testing; KEVIN = N; Verified Transmission to [place] [address]; Msg to Pharmacy: start medication the night before her procedure; Last Updated By: [employer]; 01/24/2020 12:08:27 PM Vitamin D 25 MCG (1000 UT) Oral Tablet; Therapy: 13Mar2020 to Recorded Dispense: 0 Days ; #: Sufficient Tablet; Refill: 0; KEVIN = N; Record; Last Updated By: Breezy Jasso; 2020 1:15:24 PM Vitals Vital Signs Recorded: 13Mar2020 01:08PM Heart Rate96 Sqfxdfng540 Obbisxqdm36 Height5 ft 6 in Tysjdq211 lb BMI Opjaeqgqfm29.91 BSA Calculated2.39 Tobacco Useb) No Fall Screeninga) No falls within the last year [id number] Gravida1 Para0 Pain Scale0 Diagnoses/Problems Morbid obesity [...] consultation of which greater than 50% was dekr-kn-jofd counseling. Weight loss prior to conception is [...] MD; Jun 12 2020 4:50PM EST Normal [facility] ANTI MULLERIAN HORMONEon ANTI MULLERIAN HORMONE 6.36 ng/mL Normal [facility] Comment on above: Result Comment: For assays employing antibodies, the possibility exists for interference by heterophile antibodies in the samples.1 1.Oswald Crews. Interferences in Immunoassays - still a threat. Clin. Chem. 2000; 46: 6246-1333. This test was developed and its performance characteristics determined by [employer]. It has not been cleared or approved by the Food and Drug Administration. Reference Range: Females 26 - 30y: 1.03 - 11.10 Median 4.20 AMH concentrations of >= 1.06 ng/mL is correlated with a better response to ovarian stimulation, produced more retrievable oocytes and higher odds of live according to Michaeler et al. Fertility and Sterility. 2010: 94:8194-1270. The current AMH test method correlates with [...] ovarian tumor. Performed By: #### A #### [facility] [address] [place] [address] [id number] 17-HYDROXYPROGESTERONEon 17-HYDROXYPROGESTERON E 33 ng/dL Normal [facility] [...] Endocrinol Metab. 1991;73:674-686; J Clin Endocrinol Metab. 1989;69;0497-1656; J Clin Endocrinol Metab. 1994;78:226-270. Pediatr Res 1988;23:525-529. MedLinePlus (accessed 10/25/13). This test was developed and its analytical performance characteristics have been determined by [facility] [place]. It has not been cleared or approved by the U.S. Food and Drug Administration. This assay has been validated pursuant to the CLIA regulations and is used for clinical purposes. Performed By: #### 1 7OHP #### [facility] [address] [place], [place] TESTOST,FREE AND TOTALon TESTOSTERONE TOT.LC/MS/MS 63 ng/dL High 2-45 [facility] Comment on above: Result Comment: For additional information, please refer to http://education.[employer]/faq/ QvsyzVxuzjhvkekiuPRAFUACSN453 (This link is being provided for informational/ educational purposes only.) This test was developed and its analytical performance characteristics have been determined by [facility] [place]. It has not been cleared or approved by the U.S. Food and Drug Administration. This assay has been validated pursuant to the CLIA regulations and is used for clinical purposes. Performed By: #### G CCHA #### [facility] [address] [place] [address] TESTOSTERONE,FREE 8.8 pg/mL High 0.1-6.4 [facility] Comment on above: Result Comment: This test was developed and its analytical performance characteristics have been determined by [facility] [place]. It has not been cleared or approved by the U.S. Food and Drug Administration. This assay has been validated pursuant to the CLIA regulations and is used for clinical purposes. Performed By: #### G [facility] #### [facility] [address] [place] [address] DHEA SULFATEon 01-25-2020 DHEA SULFATE 214 ug/dL Normal 65 - 395 [facility] Comment on above: Result Comment: MATU RITY-BASED [...] for further information. Performed By: #### G [facility] #### [facility] [address] [place] [address] GC + CHLAMYDIA BY AMPLIFIED DETECTIONon 01-25-2020 CHLAMYDIA TRACH.,AMPLIFIED Negative Normal Negative [facility] Comment on above: Performed By: #### G [facility] #### [facility] [address] [place] [address] N.GONORRHEA,AMPLIFIED Negative Normal Negative [facility] Comment on above: Performed By: #### G [facility] #### [facility] [address] [place] [address] HEPATITIS B SURFACE AGon HEP.B SURFACE AG NONREACTIVE Normal NONREACTIVE [facility] Comment on above: Result Comment: Biot in interference may cause falsely decreased results. Patients taking a Biotin dose of up to 5 mg/day should refrain from taking Biotin for 24 hours before sample collection. Providers may contact their local laboratory for further information. Performed By: #### G CCHA #### [facility] [address] [place] [address] HEPATITIS C ABon 01-25-2020 HEPATITIS C AB NONREACTIVE Normal NONREACTIVE [facility] Comment on above: Result Comment: Resu lts from patients taking biotin supplements or receiving high-dose biotin therapy should be interpreted with caution due to possible interference with this test. Providers may contact their local laboratory for further information. Performed By: #### H CVAB #### [facility] [address] [place] [address] HIV ANTIGEN/ANTIBODY SCREENo n 01-25-2020 HIV AG/AB SCREEN NONREACTIVE Normal NONREACTIVE [facility] Comment on above: Result Comment: HIV Ag/Ab screen is performed using the Siemens The Vetted NetllLogRhythm HIV Ag/Ab Combo assay which detects the presence of HIV p24 antigen as well as antibodies to HIV-1 (Group M and O) and HIV-2. Performed By: #### [facility] #### [facility] [address] [place] [address] RUBELLA IGG ABon 01-25-2020 RUBELLA IGG AB Positive Normal [facility] Comment on above: [...] Performed By: #### R UBIG #### [facility] [address] [place] [address] SYPHILIS SCREENING WITH REFL EXon 01-25-2020 SYPHILIS TOTAL AB NONREACTIVE Normal NONREACTIVE [facility] Comment on above: Result Comment: No s ignificant level of Treponema pallidum antibody detected. Repeat testing in 2 to 4 weeks may be considered if early infection or incubating syphilis infection is suspected. Performed By: #### S YPHR #### [facility] [address] [place] [address] TSH WITH REFLEX TO FREE T4 I F ABNORMALon 01-25-2020 TSH Qn 2.17 m[IU]/L Normal 0.44 - 3.98 [facility] Comment on above: Result Comment: TSH testing is performed using different testing methodology at [facility] than at other [facility]. Direct result comparisons should only be made within the same method. Performed By: #### G CCHA #### [facility] [address] [place], [place] VARICELLA ZOSTER IGG ABon VARICELLA ZOSTER [...] assays. Performed By: #### V ARZG #### [facility] [address] [place] [address] VITAMIN D, 25-HYDROXYon 01-10 VITAMIN D, 25-HYDROXY 17 ng/mL Abnormal [facility] Comment on above: Result Comment: . DEFICIENCY: < 20 NG/ML INSUFFICIENCY: 20-29 NG/ML SUFFICIENCY: 30-100 NG/ML THIS ASSAY ACCURATELY QUANTIFIES THE SUM OF VITAMIN D3, 25-HYDROXY AND VIT D2,25-HYDROXY. { Performed By: #### G [facility] #### [facility] [address] [place] [address] GC + CHLAMYDIA BY AMPLIFIED DETECTIONon 01-24-2020 Lab Specimen Source Urine Normal [facility] Comment on above: Performed By: #### G [facility] #### [facility] [address] [place] [address] HEMOGLOBIN A1Con 01-24-2020 HbA1c (Bld) [Mass fraction] 5.5 % Normal [facility] Comment on above: Result Comment: Diag nosis of Diabetes-Adults Non-Diabetic: < or = 5.6% Increased risk for developing diabetes: 5.7-6.4% Diagnostic of diabetes: > or = 6.5% . Monitoring of Diabetes Age (y) Therapeutic Goal (%) Adults: >18 <7.0 Pediatrics: 13-18 <7.5 7-12 <8.0 0- 6 7.5-8.5 [place] [employer]. Diabetes Care 33(S1), May 2009. Performed By: #### H BA1E #### [facility] [address] [place] [address] HbA1c (Bld) [Mass fraction] 111 MG/DL Normal [facility] Comment on above: Performed By: #### H BA1E #### [facility] [address] [place] [address] BLENDING TANK TENDER - Office Visiton 01-10 BLENDING TANK TENDER - Office Visit Chief Complaint 29 year [...] was treated with laparoscopic left salpingectomy in [facility]. Patient has a remote history [...] Symptoms: Heavy bleeding with no severe pain RATE AND COST ANALYST HISTORY: STDs: Yes, remote history of gonorrhea [...] 01/24/2020 12:05:52 PM Vitals Vital Signs Recorded: 69Tox3432 11:13AM Kvadhjxurcm79.7 F Heart Lmlp037 Bwgphurt368 Irzdzylih75 Height5 ft 6 in Qzecan649 lb BMI Bpghplqyoi97.13 BSA Calculated2.35 Tobacco Useb) No Fall Screeninga) No falls within the last year [id number] Gravida1 Para0 Pain Scale0 Diagnoses/Problems Female infertility (628.9) (N97.9) Fertility testing (V26.21) (Z31.41) Morbid obesity (278.01) (E66.01) Irregular menses (626.4) (N92.6) Screening for STD (sexually transmitted disease) (V74.5) (Z11.3) *Orders Anti Mullerian Hormone; Status:Active; Requested for:17Czj8732; Perform:Lab Services - Lab To Draw (Non-Blood Test); Due:18Qad4592;Ordered; For:Female infertility, Fertility testing, Irregular menses, Morbid obesity; Ordered By:Bayron Mccarty; Start: Doxycycline Monohydrate 100 MG Oral Capsule; TAKE 1 CAPSULE EVERY 12 HOURS DAILY Rx By: Bayron Mccarty; Dispense: 5 Days ; #:10 Capsule; Refill: 0; For: Fertility testing; KEVIN = N; Verified Transmission to [place] [address]; Msg to Pharmacy: start medication the night before her procedure; Last Updated By: Cindi Lizarraga; 01/24/2020 12:08:27 PM Maternal Medicine Referral Evaluation and Treatment Evaluate AND Treat Status: Hold For - Scheduling Requested for: 18Chb2791 Ordered; For: Morbid obesity; Ordered By: Bayron Mccarty Performed: Due: 10Dpz9022 17-Hydroxyprogesterone, Serum; Status:Active; Requested for:74Hgt2976; Perform:Lab Services - Lab To Draw (Blood Test); Due:37Rgs7240;Ordered; For:Screening for STD (sexually transmitted disease); Ordered By:Bayron Mccarty; DHEA Sulfate, Serum; Status:Active; Requested for:15Ltg7690; Perform:Lab Services - Lab To Draw (Blood Test); Due:36Gjw0462;Ordered; For:Screening for STD (sexually transmitted disease); Ordered By:Bayron Mccarty; Hemoglobin A1C; Status:Active; Requested for:03Cdl8378; Perform:Lab Services - Lab To Draw (Blood Test); Due:26Amp8364;Ordered; For:Screening for STD (sexually transmitted disease); Ordered By:Bayron Mccarty; Rubella IgG Antibody; Status:Active; Requested for:93Fet3092; Perform:Lab Services - Lab To Draw (Blood Test); Due:21Jom2975;Ordered; For:Screening for STD (sexually transmitted disease); Ordered By:Bayron Mccarty; Testosterone Free + Total; Status:Active; Requested for:62Oya9507; Perform:Lab Services - Lab To Draw (Blood Test); Due:44Agj9520;Ordered; For:Screening for STD (sexually transmitted disease); Ordered By:Bayron Mccarty; TSH WITH REFLEX TO FREE T4 IF ABNORMAL; Status:Active; Requested for:99Bqs4684; Perform:Lab Services - Lab To Draw (Blood Test); Due:05Lto3894;Ordered; For:Screening for STD (sexually transmitted disease); Ordered By:Bayron Mccarty; Ultrasound Pelvis Transvaginal; Status:Hold For - Scheduling; Requested for:24Jan2020; Perform:[facility]; Order Comments:will call with menses to schedule; Due:44Llk4149;Ordered; For:Screening for STD (sexually transmitted disease); Ordered By:Bayron Mccarty; Radiologist to Determine Optimal Study : Y What are the patient's signs and symptoms? : fert testing Varicella Zoster IgG Antibody; Status:Active; Requested for:24Jan2020; Perform:Lab Services - Lab To Draw (Blood Test); Due:99Lmn9531;Ordered; For:Screening for STD (sexually transmitted disease); Ordered By:Bayron Mccarty; Vitamin D 25-Hydroxy; Status:Active; Requested for:24Jan2020; Perform:Lab Services - Lab To Draw (Blood Test); Due:49Epr3080;Ordered; For:Screening for STD (sexually transmitted disease); Ordered By:Bayron Mccarty; Xray Hysterosalpingogram; Status:Hold For - Scheduling; Requested for:24Jan2020; Perform:[facility]; Order Comments:will call with menses to schedule. schedule between CD5-12. start doxycycline night prior to procedure; Due:05Wto0477;Ordered; For:Screening for STD (sexually transmitted disease); Ordered [...] sent to her home pharmacy ([facility] in [place]) [ ] Day 3 FSH, LH, E2 [x] AMH [x] TSH [x] Prolactin [x] Testosterone, DHEAS [x] HgA1C [x] STD screening [x ] Preconceptual screening including Rubella,Varicella, Blood type [ ] Genetic Screen with [facility] - will consider [ ] Take vitamins [x] Return to see MANAGER PROPOSAL after workup complete to discuss management plan [...] Jan 24 2020 1:40PM EST (Author) Normal [employer] SYPHILIS SCREENING WITH REFL EXon 01-24-2020 Lab Spec[address] Source Normal [facility] Comment on above: Performed By: #### S YPHR #### [facility] [address] [place] [address] Performed By: #### V ARZG #### [facility] [address] [place] [address] Performed By: #### R UBIG #### [facility] [address] [place] [id number] Vital Signs Date Time Vital Sign Value Performing Clinician Facility 05-26-2024 14:09-0500 Body mass index (BMI) [Ratio] 49.57 kg/m2 [facility] Work Phone: [facility] 05-26-2024 14:09-0500 Body weight 139.31 kg [facility] Work Phone: [facility] 05-26-2024 14:09-0500 Diastolic blood pressure 82 mm[Hg] [facility] Work Phone: [facility] 05-26-2024 14:09-0500 Systolic blood pressure 126 mm[Hg] [employer] Work Phone: [facility] 05-17-2024 15:36-0500 Body mass index (BMI) [Ratio] 49.41 kg/m2 [employer] Work Phone: [facility] 05-17-2024 15:36-0500 Body weight 138.85 kg Tacho Shon DO Work Phone: [facility] 05-17-2024 15:36-0500 Diastolic blood pressure 80 mm[Hg] Tacho Shon DO Work Phone: [facility] 05-17-2024 15:36-0500 Systolic blood pressure 118 mm[Hg] Tacho Shon DO Work Phone: [facility] 05-03-2024 15:11-0500 Body mass index (BMI) [Ratio] 49.09 kg/m2 Mena Ann PA Work Phone: [facility] 05-03-2024 15:11-0500 Body weight 137.95 kg Mena Marissa PA Work Phone: [facility] 05-03-2024 15:11-0500 Diastolic blood pressure 70 mm[Hg] Mena Marissa PA Work Phone: [facility] 05-03-2024 15:11-0500 Systolic blood pressure 120 mm[Hg] Mena Marissa PA Work Phone: [facility] 04-22-2024 09:51-0500 Body mass index (BMI) [Ratio] 49.45 kg/m2 Tacho Shon DO Work Phone: [facility] 04-22-2024 09:51-0500 Body weight 138.98 kg Tacho Shon DO Work Phone: [facility] 04-22-2024 09:51-0500 Diastolic blood pressure 80 mm[Hg] Tacho Shon DO Work Phone: [facility] 04-22-2024 09:51-0500 Systolic blood pressure 130 mm[Hg] Tacho Shon DO Work Phone: [facility] 04-06-2024 14:10-0500 Body mass index (BMI) [Ratio] 48.58 kg/m2 Mena Marissa PA Work Phone: [facility] 04-06-2024 14:10-0500 Body weight 136.53 kg Mena Garciavania CARRILLO Work Phone: [facility] 04-06-2024 14:10-0500 Diastolic blood pressure 80 mm[Hg] Mena Marissa CARRILLO Work Phone: [facility] 04-06-2024 14:10-0500 Systolic blood pressure 128 mm[Hg] Mena Garciavania CARRILLO Work Phone: [facility] 03-22-2024 14:14-0500 Body mass index (BMI) [Ratio] 48.92 kg/m2 Tacho Shon DO Work Phone: [facility] 03-22-2024 14:14-0500 Body weight 137.49 kg Tacho Shon DO Work Phone: [facility] 03-22-2024 14:14-0500 Diastolic blood pressure 84 mm[Hg] Tacho Shon DO Work Phone: [facility] 03-22-2024 14:14-0500 Systolic blood pressure 126 mm[Hg] Tacho Shon DO Work Phone: [facility] 03-05-2024 23:11-0400 Diastolic blood pressure 78 mm[Hg] [facility] [employer] [facility] Work Phone: [facility] 03-05-2024 23:11-0400 Heart rate 90 /min [facility] Work Phone: [facility] 03-05-2024 23:11-0400 Respiratory rate 18 /min [facility] Work Phone: [facility] 03-05-2024 23:11-0400 SaO2% (BldA) [Mass fraction] 96 % [facility] Work Phone: [facility] 03-05-2024 23:11-0400 Systolic blood pressure 136 mm[Hg] Services [employer] Work Phone: [facility] 03-05-2024 19:59-0400 Body temperature 98.1 [degF] Services [facility] Work Phone: [facility] 03-05-2024 19:58-0400 Body height 167.64 cm [facility] Work Phone: [facility] 03-05-2024 19:58-0400 Body weight 136.55 kg Services [facility] Work Phone: [facility] 02-26-2024 19:50-0400 Body height 167.64 cm [facility] Work Phone: [facility] 02-26-2024 19:50-0400 Body temperature 97.8 [degF] [facility] Work Phone: [facility] 02-26-2024 19:50-0400 Body weight 136.98 kg [facility] [employer] Work Phone: [facility] 02-26-2024 19:50-0400 Diastolic blood pressure 91 mm[Hg] [facility] Work Phone: [facility] 02-26-2024 19:50-0400 Heart rate 103 /min [facility] Work Phone: [facility] 02-26-2024 19:50-0400 Respiratory rate 16 /min Services [employer] Work Phone: [facility] 02-26-2024 19:50-0400 SaO2% (BldA) [Mass fraction] 96 % [facility] [employer] Work Phone: [facility] 02-26-2024 19:50-0400 Systolic blood pressure 144 mm[Hg] Services [facility] Work Phone: [facility] 02-23-2024 14:01-0400 Body mass index (BMI) [Ratio] 48.76 kg/m2 Mena CARRILLO Work Phone: [facility] 02-23-2024 14:01-0400 Body weight 137.04 kg Mena CARRILLO Work Phone: [facility] 02-23-2024 14:01-0400 Diastolic blood pressure 82 mm[Hg] Mena CARRILLO Work Phone: [facility] 02-23-2024 14:01-0400 Systolic blood pressure 128 mm[Hg] Mena CARRILLO Work Phone: [facility] 01-20-2024 13:58-0400 Body mass index (BMI) [Ratio] 48.1 kg/m2 Tacho Shon DO Work Phone: [facility] 01-20-2024 13:58-0400 Body weight 135.17 kg Tacho Shon DO Work Phone: [facility] 01-20-2024 13:58-0400 Diastolic blood pressure 74 mm[Hg] Tacho Shon DO Work Phone: [facility] 01-20-2024 13:58-0400 Systolic blood pressure 122 mm[Hg] Tacho Shon DO Work Phone: [facility] 10-06-2023 17:42-0400 Body height 167.64 cm [facility] [employer] Work Phone: [facility] 10-06-2023 17:42-0400 Body temperature 98.3 [degF] [facility] Work Phone: [facility] 10-06-2023 17:42-0400 Body weight 134 kg Services [employer] Work Phone: [facility] 10-06-2023 17:42-0400 Diastolic blood pressure 94 mm[Hg] [facility] Work Phone: [facility] 10-06-2023 17:42-0400 Heart rate 98 /min [facility] [employer] Work Phone: [facility] 10-06-2023 17:42-0400 Respiratory rate 18 /min Services [employer] Work Phone: [facility] 10-06-2023 17:42-0400 SaO2% (BldA) [Mass fraction] 100 % [facility] [employer] Work Phone: [facility] 10-06-2023 17:42-0400 Systolic blood pressure 142 mm[Hg] Services [employer] Work Phone: [facility] 09-17-2023 14:22040 Body height 167.[address] [facility] 09-17-2023 14:22-0400 Body mass index (BMI) [Ratio] 47.61 kg/m2 Anna Ortiz RD [facility] 09-17-2023 14:22-0400 Body weight 133.[address] [facility] 08-20-2023 13:05040 Body height 167.6 cm Tonya Senior HOME MAKER.[employer]RIX REPAIRER Work Phone: [facility] 08-20-2023 13:05040 Body weight 133.81 kg Tonya Parrish HOME MAKER.MATRIX REPAIRER Work Phone: [facility] 08-07-2023 15:040 Body height 168.91 cm Services [employer] Work Phone: [facility] 08-07-2023 15:23-0400 Body mass index (BMI) [Ratio] 46.9 kg/m2 Services [employer] Work Phone: [facility] 08-07-2023 15:23-0400 Body weight 133.89 kg Services [employer] Work Phone: [facility] 08-07-2023 15:23-0400 Diastolic blood pressure 83 mm[Hg] Services [employer] Work Phone: [facility] 08-07-2023 15:23-0400 Heart rate 101 /min Services [employer] Work Phone: [facility] 08-07-2023 15:23-0400 Respiratory rate 18 /min Services [employer] Work Phone: [facility] 08-07-2023 15:23-0400 SaO2% (BldA) [Mass fraction] 98 % Services [employer] Work Phone: [facility] 08-07-2023 15:23-0400 Systolic blood pressure 120 mm[Hg] Services [employer] Work Phone: [facility] 06-13-2023 11:00-0500 Body height 168.28 cm Nicholas Michaels Other [facility] 06-13-2023 11:00-0500 Body mass index (BMI) [Ratio] 48.53 kg/m2 Nicholas Michaels Other [employer] Other 06-13-2023 11:00-0500 Body weight 137.44 kg Nicholasclayton Michaels Other [employer] Other 06-13-2023 11:00-0500 Body weight 137.43 kg [facility] [employer] Work Phone: [facility] 06-13-2023 11:00-0500 Diastolic blood pressure 82 mm[Hg] Nicholas Michaels Other [facility] 06-13-2023 11:00-0500 Respiratory rate 18 /min Nicholas Michaels Other [employer] Other 06-13-2023 11:00-0500 SaO2% (BldA) [Mass fraction] 97 % Nicholas Michaels Other [employer] Other 06-13-2023 11:00-0500 Systolic blood pressure 120 mm[Hg] Nicholas Michaels Other [facility] 01-08-2023 10:45-0400 Body height 168.28 cm Nicholas Michaels Other [employer] Other 01-08-2023 10:45-0400 Body mass index (BMI) [Ratio] 52.89 kg/m2 Nicholas Michaels Other [employer] Other 01-08-2023 10:45-0400 Body weight 149.78 kg Nicholas Michaels Other [employer] Other 01-08-2023 10:45-0400 Diastolic blood pressure 81 mm[Hg] Nicholas Gridle[employer]in Other [employer] Other 01-08-2023 10:45-0400 Respiratory rate 18 /min [facility] Other [employer] Other 01-08-2023 10:45-0400 SaO2% (BldA) [Mass fraction] 97 % Nicholas Gridle[employer]in Other [employer] Other 01-08-2023 10:45-0400 Systolic blood pressure 122 mm[Hg] Nicholas [employer]le[employer] Other [employer] Other 06-18-2022 16:57-0500 Body height 167.64 cm [facility] [employer] Work Phone: [facility] 06-18-2022 16:57-0500 Body weight 157 kg [facility] [employer] Work Phone: [facility] 06-18-2022 16:56-0500 Body temperature 98.3 [degF] Services [employer] Work Phone: [facility] 06-18-2022 16:56-0500 Diastolic blood pressure 67 mm[Hg] [facility] Work Phone: [facility] 06-18-2022 16:56-0500 Heart rate 95 /min [facility] [employer] Work Phone: [facility] 06-18-2022 16:56-0500 Respiratory rate 20 /min Services [employer] Work Phone: [facility] 06-18-2022 16:56-0500 SaO2% (BldA) [Mass fraction] 97 % Services [employer] Work Phone: [facility] 06-18-2022 16:56-0500 Systolic blood pressure 158 mm[Hg] Services [facility] Work Phone: [facility] 12-02-2021 20:26-0400 Body height 167.64 cm [facility] Work Phone: [facility] 12-02-2021 20:26-0400 Body temperature 98.2 [degF] [facility] [employer] Work Phone: [facility] 12-02-2021 20:26-0400 Body weight 144.24 kg [facility] Work Phone: [facility] 12-02-2021 20:26-0400 Diastolic blood pressure 89 mm[Hg] Services [employer] Work Phone: [facility] 12-02-2021 20:26-0400 Heart rate 104 /min Services [employer] Work Phone: [facility] 12-02-2021 20:26-0400 Respiratory rate 20 /min Services [employer] Work Phone: [facility] 12-02-2021 20:26-0400 SaO2% (BldA) [Mass fraction] 96 % Services [employer] Work Phone: [facility] 12-02-2021 20:26-0400 Systolic blood pressure 156 mm[Hg] Services [employer] Work Phone: [facility] 06-19-2020 11:10-0500 BMI (Body Mass Index) 46.65 kg/m2 Bayron Bibiana PH-TZGYA-Qyrvko 310 [facility] Work Phone: 06-19-2020 11:10-0500 Body weight 131.09 kg Bayron Bibiana SH-YAYAM-Lpfasf 310 [facility] Work Phone: 06-19-2020 11:10-0500 BSA (Body Surface Area) 2.34 m2 Bayron Mccarty PJ-GGQHD-Mawoyh 310 IV[facility] Work Phone: 06-19-2020 11:10-0500 Height 167.64 cm Bayron Mccarty YT-IOVNL-Fuuxas 310 IV[facility] Work Phone: 06-19-2020 11:10-0500 1 1 Bayron Mccarty DE-QXFIZ-Tgkrlu 310 IV[facility] Work Phone: Comment on above: 06-19-2020 11:10-0500 0 1 Bayron Mccarty JY-CTRSH-Sshqla 310 IV[facility] Work Phone: Comment on above: [...] [facility] Start: 05-26-2024 End: 05-26-2024 ambulatory TACHO SHON Not Available Start: 05-25-2024 End: 05-25-2024 Clinisync Result Encounter Tacho Shon DO Work Phone: [facility] External [facility] Unsolicited Start: 05-25-2024 End: 05-25-2024 Clinisync Result Encounter Tacho Shon DO Work Phone: [facility] Unsolicited Start: 05-17-2024 End: 05-17-2024 Departed Referred Services [facility] Work Phone: [facility] Start: 05-17-2024 End: 05-17-2024 Office outpatient visit 15 minutes Tacho Shon DO Work Phone: [facility] Comment on above: 37 weeks gestation o f ; Third trimester Start: 05-17-2024 End: 05-17-2024 ambulatory Services [facility] Work Phone: [facility] Work Phone: Start: 05-17-2024 End: 05-17-2024 [...] Department Unsolicited Start: 04-27-2024 End: 04-27-2024 ambulatory [facility] Start: 04-22-2024 End: 04-22-2024 Bamboo flowsheet [...] 03-30-2024 End: 03-30-2024 ambulatory TACHO R SHON [facility] Start: 03-22-2024 End: 03-22-2024 Bamboo flowsheet [...] Clinisync Result Encounter Mena CARRILLO Work Phone: [facility] External Department Unsolicited Start: 03-19-2024 End: 03-19-2024 Clinisync Result Encounter Mena CARRILLO Work Phone: [facility] External Department Unsolicited Start: 03-05-2024 End: 03-05-2024 Emergency department patient visit Services [employer] [facility] Work Phone: [facility] Work Phone: Start: 03-01-2024 End: 03-01-2024 Orders Only Veda Hayes RN Maternal- Medic ine at [facility] Comment on above: Encounter for follow -up ultrasound of anatomy (Primary Dx); History of pre-eclampsia in prior , currently ; History of delivery, currently ; Obesity affecting in second trimester, unspecified obesity type Start: 02-26-2024 End: 02-26-2024 Emergency department patient visit Services [employer] Work Phone: [facility] Work Phone: Start: 02-23-2024 End: [...] Available Start: 02-17-2024 End: 02-17-2024 [facility] Start: 01-26-2024 End: 01-26-2024 Clinisync [...] 01-19-2024 End: 01-19-2024 ambulatory TACHO R SHON [facility] Start: 12-23-2023 End: 12-23-2023 ambulatory MENA ANN Not Available Start: 11-25-2023 End: 11-25-2023 ambulatory TACHO SHON Not Available Start: 10-30-2023 End: 10-30-2023 ambulatory TACHO SHON Not Available Start: 10-09-2023 End: 10-09-2023 ambulatory LATONIADARY GREENE Facility:[facility] Start: 10-06-2023 End: 10-06-2023 Emergency department patient visit Services [facility] Work Phone: [facility] Work Phone: Start: 09-17-2023 End: 09-17-2023 ambulatory ANNA ORTIZ Facility:[facility] Start: 09-17-2023 End: 09-17-2023 Nutrition therapy Anna Angel BAÑUELOS Nutrition Therapy Comment on above: Obesity, Class III, BMI 40-49.9 (morbid obesity) (HCC) (Primary Dx); Dietary counseling Start: 09-17-2023 End: 09-17-2023 Telemedicine consultation with patient Anna Guevaraluis BAÑUELOS Nutrition Therapy Start: 09-15-2023 Admission to [facility] Tonya Senior APRN.MATRIX REPAIRER Work Phone: General Surgery Comment on above: Results Start: 09-15-2023 E-mail encounter fro m caregiver Tonya Senior HOME MAKER.MATRIX REPAIRER Work Phone: General Surgery Start: 09-11-2023 Telephone encounter Tonya Senior APRN.MATRIX REPAIRER Work Phone: General Surgery Comment on above: Results Start: 09-08-2023 End: 09-08-2023 ambulatory TONYA SENIOR Facility:[facility] Start: 09-05-2023 End: 09-05-2023 ambulatory TONYA SENIOR Facility:[facility] Start: 09-01-2023 End: 09-02-2023 ambulatory LATONIA Willis JC Facility:[facility] Start: 09-01-2023 End: 09-01-2023 Admission to same day surgery center Latonia Willis Jc PhD Work Phone: General Surgery BMI PSYL Comment on above: NO SHOW (Primary Dx) Start: 09-01-2023 End: 09-01-2023 Telemedicine consultation with patient Latonia Fuentesardo PhD Work Phone: General Surgery BMI PSYL Start: 08-20-2023 Admission to same da y surgery center Tonya Senior HOME MAKER.MATRIX REPAIRER Work Phone: General Surgery Comment on above: Welcome to Bariatric Surgery Start: 08-20-2023 E-mail encounter fro m caregiver Tonya Senior HOME MAKER.MATRIX REPAIRER Work Phone: [place] [id number] Start: 08-20-2023 End: 08-20-2023 ambulatory Tonya Senior HOME MAKER.MATRIX REPAIRER Work Phone: General Surgery Comment on above: Body mass index (BMI ) of 50-59.9 in adult (HCC) (Primary Dx); Angel's thyroiditis; High blood cholesterol Start: 08-20-2023 End: 08-20-2023 Telemedicine consultation with patient Tonya Senior HOME MAKER.MATRIX REPAIRER Work Phone: [facility] Start: 08-07-2023 End: 08-07-2023 ambulatory Services [facility] Work Phone: [facility] Work Phone: Start: 08-07-2023 End: 08-07-2023 Patient encounter procedure Services [facility] Work Phone: [facility] Work Phone: Start: 06-13-2023 Follow-up encounter Nicholas leon [facility] Start: 06-13-2023 Registered Recurring Services Family [facility] Work Phone: [facility] Work Phone: Start: 06-13-2023 End: 06-13-2023 ambulatory Services [facility] [employer] Other Start: 06-13-2023 End: 06-13-2023 Patient encounter procedure Services [facility] Work Phone: [facility]- Start: 01-08-2023 End: 01-08-2023 ambulatory Nicholas Michaels Other [facility] [employer] Other Start: 01-08-2023 Nutrition therapy Nicholas Michaels [facility] Start: 06-18-2022 End: 06-18-2022 Emergency department patient visit Services Family [facility] Work Phone: [facility] Work Phone: Start: 06-03-2022 End: 06-03-[address] TACHO MENENDEZ Facility: Start: 12-02-2021 End: 12-02-2021 Emergency department patient visit Services [employer] [facility] Work Phone: [facility] Start: 07-08-2020 Patient encounter procedure Bayron Bibiana JK-ZOJTC-Bpxdla 310 IVF Work Phone: Start: 07-05-2020 Patient encounter procedure Bayron Mccarty UA-ZUPEB-Zujjon 310 IVF Work Phone: Start: 06-19-2020 Patient encounter procedure Bayron Mccarty HC-ITEEP-Txohpe 310 IVF Work Phone: Start: 04-14-2020 Patient encounter procedure Bayron Bibiana GR-DRVVM-Nyuyaz 310 IVF Work Phone: Start: 03-28-2020 Patient encounter procedure Bayron Bibiana SF-CLSDW-Bqbudd 310 IVF Work Phone: Start: 2020 Patient encounter procedure Bayron Bibiana HS-MVUNU-Bkegqv 310 IVF Work Phone: Start: 01-24-2020 Patient encounter procedure Bayron PAEZ-OBGYN-Risman 310 IVF Work Phone: Start: 08-01-2017 End: 08-02-2017 Ambulatory Agustin Patton Facility:[id number] Start: 07-14-2017 End: 07-15-2017 Ambulatory Agustin Patton Facility:[id number] Procedures Date Procedure Procedure Detail Performing [...] Start: 03-05-2024 Plain chest X-ray Servi malina [facility] Work Phone: Start: 03-05-2024 Respiratory Panel (PCR) Services [facility] Work Phone: Start: 03-05-2024 Respiratory Panel (PCR) Services [employer] Phone: Start: 03-05-2024 Streptococcus pyogen es antigen assay Services [employer] [facility] [employer] Phone: Start: 02-26-2024 Streptococcus pyogen es antigen assay Services [employer] [facility] [employer] Phone: Start: 02-23-2024 Urnls dip stick/tabl et rgnt non-auto w/o micrscp Mena Ann PA Work Phone: Start: 01-26-2024 [facility] THYROID [facility] Phone: Start: 01-20-2024 Urnls dip stick/tabl et rgnt non-auto w/o micrscp [facility] Work Phone: Start: 12-23-2023 Microscopic observat ion [Identifier] in Cervix by Cyto stain [facility] Work Phone: Start: 07-06-2020 Antibody screen Comment on above: Performed By: #### T +S #### [facility] [address] [place] [address] Start: 07-05-2020 IO Ultrasound, limit ed pelvic, follicle monitoring Bayron Mccarty Start: 06-26-2020 IO Ultrasound, limit ed pelvic, follicle monitoring Bayron Mccarty Start: 05-10-2020 Assay of progesterone Yonathan oslissette Mccarty Adenoid excision Bayron wallace Cholecystectomy Bayron Chen ey SARS Antigen (LFIA) Services [facility] [employer] Phone: Plan of Treatment Date Care Activity Detail Author Start: 12-22-2028 Screening for malign ant neoplasm of cervix [facility] Start: 12-22-2026 Screening for malign ant neoplasm of cervix Pap Smear [facility] Start: 03-01-2025 End: 03-01-2025 US MFM with or without consult US MFM with or without consult Imaging Routine Encounter for follow-up ultrasound of anatomy History of pre-eclampsia in prior , currently History of delivery, currently Obesity affecting in second trimester, unspecified obesity type Expected: 03/01/2025 (Approximate), Expires: 03/01/2025 [facility] Work Phone: Comment on above: Expected: 03/01/2025 (Approximate), Expires: 03/01/2025 Start: 01-18-2025 Adult BMI Screening Adult BMI Screen ing [facility] Start: 01-18-2025 Tobacco Screening Tobacco Screening [facility] Start: 05-27-2024 End: 05-27-2024 Patient encounter procedure 05/27/2024 10:20 AM EST Routine [facility] [address] [place] [id number] Tacho Menendez DO [address] [place], [place] [id number] [facility] Start: 05-26-2024 End: 05-26-2024 Patient encounter procedure [facility] Comment on above: Arrived Start: 05-17-2024 Following clinical pathway protocol [facility] Start: 05-17-2024 End: 05-17-2024 Patient encounter procedure [facility] Comment on above: Arrived Start: 05-17-2024 End: 05-17-2025 CULTURE, GROUP B STREP WITH SUSCEPTIBLITY CULTURE, GROUP B STREP WITH SUSCEPTIBLITY Lab Routine Third trimester Expected: 05/17/2024, Expires: 05/17/2025 [facility] Work Phone: Comment on above: Expected: 05/17/2024 , Expires: 05/17/2025 Start: 05-17-2024 Group B Streptococcu s Culture Group B Streptococcus Culture [facility] Start: 05-03-2024 End: 05-03-2024 Patient encounter procedure 05/03/2024 2:50 PM EST Routine [facility] [address] [facility] [place] [phone] Mena Ann PA [address] [place], [place] [id number] [facility] Start: 04-22-2024 End: 04-22-2025 [...] Routine [facility] [address] [place] [address] Mena Ann PA [address] [place], [place] [id number] [facility] Start: 03-30-2024 End: 03-30-2024 Patient encounter procedure 03/30/2024 2:45 PM EST Appointment [facility] - Ultrasound [address] [place] [id number] [facility] - Ultrasound Start: 03-22-2024 End: 03-22-2024 Patient encounter procedure 03/22/2024 1:50 PM EST Routine [facility] [address] [place] [phone] Tacho Menendez DO [address] [place] [address] [facility] Start: 03-22-2024 End: 03-22-2024 Professional / ancillary services management 03/22/2024 1:00 PM EST Ancillary Procedure [facility] [address] [facility] [place] [address] [facility] Start: 03-16-2024 End: 03-16-2024 Patient encounter procedure 03/16/2024 1:30 PM EST Routine [facility] [address] [facility] [place] [address] Tacho Menendez DO [address] [place], [place] [id number] [facility] Start: 02-23-2024 End: 02-22-2025 CBC panel - Blood by Automated count CBC Lab Routine Diabetes mellitus screening Expected: 02/23/2024 (Approximate), Expires: 02/22/2025 [facility] Work Phone: Comment on above: Expected: 02/23/2024 (Approximate), Expires: 02/22/2025 Start: 02-23-2024 End: 02-22-2025 Measurement of glucose 1 hour after glucose challenge for glucose tolerance test Glucose tolerance, 1 hour Lab Routine Diabetes mellitus screening Expected: 02/23/2024 (Approximate), Expires: 02/22/2025 [facility] Comment on above: Expected: 02/23/2024 (Approximate), Expires: 02/22/2025 Start: 02-23-2024 End: 02-22-2025 US for US OB SCAN FOR GROWTH Imaging Routine size inconsistent with dates H/O premature delivery Expected: 02/23/2024 (Approximate), Expires: 02/22/2025 [facility] Comment on above: Expected: 02/23/2024 (Approximate), Expires: 02/22/2025 Start: 02-23-2024 End: 02-23-2024 Patient encounter procedure 02/23/2024 1:40 PM EDT Routine [facility] [address] [facility] [place] [address] Mena Ann PA [address] [place] [address] Arrived [facility] Comment on above: Arrived Start: 02-18-2024 End: 02-18-2024 Patient encounter procedure 02/18/2024 2:30 PM EDT Routine [facility] [address] [place] [address] Mena Ann PA [address] [place] [address] [facility] Start: 01-11-2024 COVID-19 Vaccine ( season) COVID-19 Vaccine () [facility] Start: 01-11-2024 Influenza vaccination [facility] Start: 09-17-2023 End: 09-17-2023 Nutrition therapy 09/17/2023 2:30 PM EDT [facility] [address] [place] [id number] Anna Ortiz, RD [address] [place] [address] Red/Davis/0 Diet/Brunson Nutrition Therapy Comment on above: Red/Davis/0 Diet/ Brunson Start: 09-12-2023 End: 09-12-2023 Admission to same day surgery center 09/12/2023 3:30 PM EDT [facility] General Surgery [address] [place], [place] [id number] Joo Bradley MD [address] [place], [place] [id number] Red/Kirk/0 Diet/Brunson General Surgery Comment on above: Red/Kirk/0 Diet/Anth em Start: 09-05-2023 End: 09-05-2023 ambulatory 09/05/2023 11:45 AM EDT Results Only [facility] [address] [place] [address] [place] [address] [facility] Start: 08-20-2023 End: 11-19-2023 25-hydroxyvitamin D3 [Mass/volume] in Serum or Plasma VITAMIN D 25 HYDROXY Lab Routine Body mass index (BMI) of 50-59.9 in adult ([facility]) Expected: 08/20/2023, Expires: 11/19/2023 [facility] Work Phone: Comment on above: Expected: 08/20/2023 , Expires: 11/19/2023 Start: 08-20-2023 End: 11-19-2023 CBC W Auto Differential panel - Blood COMPLETE BLOOD COUNT AND DIFFERENTIAL Lab Routine Body mass index (BMI) of 50-59.9 in adult ([facility]) Expected: 08/20/2023, Expires: 11/19/2023 [facility] [facility] Work Phone: Comment on above: Expected: 08/20/2023 , Expires: 11/19/2023 Start: 08-20-2023 End: 11-19-2023 Cobalamin (Vitamin B12) [Mass/volume] in Serum or Plasma VITAMIN B12 Lab Routine Body mass index (BMI) of 50-59.9 in adult ([facility]) Expected: 08/20/2023, Expires: 11/19/2023 [facility] Work Phone: Comment on above: Expected: 08/20/2023 , Expires: 11/19/2023 Start: 08-20-2023 End: 11-19-2023 Comprehensive metabolic 2000 panel - Serum or Plasma COMPREHENSIVE METABOLIC PANEL Lab Routine High blood cholesterol Body mass index (BMI) of 50-59.9 in adult ([facility]) Expected: 08/20/2023, Expires: 11/19/2023 [facility] Work Phone: Comment on above: Expected: 08/20/2023 , Expires: 11/19/2023 Start: 08-20-2023 End: 11-19-2023 Ferritin [Mass/volume] in Serum or Plasma FERRITIN Lab Routine Body mass index (BMI) of 50-59.9 in adult ([facility]) Expected: 08/20/2023, Expires: 11/19/2023 [facility] Work Phone: Comment on above: Expected: 08/20/2023 , Expires: 11/19/2023 Start: 08-20-2023 End: 11-19-2023 Folate [Mass/volume] in Serum or Plasma FOLATE, SERUM Lab Routine Body mass index (BMI) of 50-59.9 in adult ([facility]) Expected: 08/20/2023, Expires: 11/19/2023 [facility] Work Phone: Comment on above: Expected: 08/20/2023 , Expires: 11/19/2023 Start: 08-20-2023 End: 11-19-2023 Helicobacter pylori IgG Ab [Presence] in Serum or Plasma by Immunoassay H PYLORI IGG AB Lab Routine Body mass index (BMI) of 50-59.9 in adult ([facility]) Expected: 08/20/2023, Expires: 11/19/2023 [facility] Work Phone: Comment on above: Expected: 08/20/2023 , Expires: 11/19/2023 Start: 08-20-2023 End: 11-19-2023 Hemoglobin A1c in Blood HEMOGLOBIN A1C Lab Routine Body mass index (BMI) of 50-59.9 in adult ([facility]) Expected: 08/20/2023, Expires: 11/19/2023 [facility] Work Phone: Comment on above: Expected: 08/20/2023 , Expires: 11/19/2023 Start: 08-20-2023 End: 11-19-2023 Iron and Iron binding capacity panel - Serum or Plasma IRON AND TIBC Lab Routine Body mass index (BMI) of 50-59.9 in adult ([facility]) Expected: 08/20/2023, Expires: 11/19/2023 [facility] Work Phone: Comment on above: Expected: 08/20/2023 , Expires: 11/19/2023 Start: 08-20-2023 End: 11-19-2023 Lipid 1996 panel - Serum or Plasma LIPID PANEL BASIC Lab Routine High blood cholesterol Body mass index (BMI) of 50-59.9 in adult ([facility]) Expected: 08/20/2023, Expires: 11/19/2023 [facility] Work Phone: Comment on above: Expected: 08/20/2023 , Expires: 11/19/2023 Start: 08-20-2023 End: 11-19-2023 Natriuretic peptide.B prohormone N-Terminal [Mass/volume] in Serum or Plasma NT PRO BNP Lab Routine Body mass index (BMI) of 50-59.9 in adult ([facility]) Expected: 08/20/2023, Expires: 11/19/2023 [facility] Work Phone: Comment on above: Expected: 08/20/2023 , Expires: 11/19/2023 Start: 08-20-2023 End: 11-19-2023 NICOTINE & METAB, UR NICOTINE & METAB, UR Lab Routine Body mass index (BMI) of 50-59.9 in adult ([facility]) Expected: 08/20/2023, Expires: 11/19/2023 [facility] Work Phone: Comment on above: Expected: 08/20/2023 , Expires: 11/19/2023 Start: 08-20-2023 End: 11-19-2023 Thyrotropin [Units/volume] in Serum or Plasma THYROID STIMULATING HORMONE Lab Routine Angel's thyroiditis Body mass index (BMI) of 50-59.9 in adult ([facility]) Expected: 08/20/2023, Expires: 11/19/2023 [facility] Work Phone: Comment on above: Expected: 08/20/2023 , Expires: 11/19/2023 Start: 08-20-2023 End: 11-19-2023 TOXICOLOGY SCREEN, ROUTINE URINE TOXICOLOGY SCREEN, ROUTINE URINE Lab Routine Body mass index (BMI) of 50-59.9 in adult ([facility]) Expected: 08/20/2023, Expires: 11/19/2023 [facility] Work Phone: Comment on above: Expected: 08/20/2023 , Expires: 11/19/2023 Start: 08-20-2023 End: 11-19-2023 VITAMIN B1 (THIAMINE), WHOLE BLOOD VITAMIN B1 (THIAMINE), WHOLE BLOOD Lab Routine Body mass index (BMI) of 50-59.9 in adult ([facility]) Expected: 08/20/2023, Expires: 11/19/2023 [facility] Work Phone: Comment on above: Expected: 08/20/2023 , Expires: 11/19/2023 Start: 05-12-2023 Behavioral Health Screening Behavioral Health Screening [facility] Start: 01-10-2023 Covid-19 Vaccine () Covid-19 Vaccine () [facility] Start: 12-02-2021 Plain chest X-ray XR chest 1V portab le [facility] Start: 12-02-2021 XR Chest Single view [facility] Work Phone: Start: 2021 Screening for malign ant neoplasm of cervix HPV Testing [facility] Start: 2012 Screening for malign ant neoplasm of cervix Pap Testing [facility] Start: 2010 Hepatitis B Vaccine (1 of 3 - 19+ 3-dose series) Hepatitis B Vaccine (1 of 3 - 19+ 3-dose series) [facility] Start: 2009 Adult BMI Follow Up Plan Adult BMI Follow Up Plan [facility] Start: 2009 HIV screening HIV Screening [facility] Start: 2003 Depression Screening Depression [facility] Start: 2002 DTaP,Tdap and Td Vaccines (6 - Tdap) DTaP,Tdap and Td Vaccines (6 - Tdap) [facility] Start: 2002 Urine microalbumin profile DTaP,Tdap,Td Vaccine (6 - Tdap) [facility] End: 08-19-2024 ECG COMPLETE ECG COMPLETE ECG Routine Body mass index (BMI) of 50-59.9 in adult (HCC) 1 Occurrences starting 08/20/2023 until 08/19/2024 [facility] Work Phone: Comment on above: 1 Occurrences starti ng 08/20/2023 until 08/19/2024 Patient Education [facility] Work Phone: Patient referral [facility] Work Phone: Thyrotropin [Units/volume] in Serum or Plasma TSH Lab Routine Thyroid disease (CMS/HCC) Ordered: 04/22/2024 [facility] Comment on above: Ordered: 04/22/2024 End: 09-18-2024 US Abdomen RUQ US ABD RIGHT UPPER QUADRANT Radiology Routine Body mass index (BMI) of 50-59.9 in adult (HCC) 1 Occurrences starting 08/20/2023 until 09/18/2024 [facility] Work Phone: Comment on above: 1 Occurrences starti ng 08/20/2023 until 09/18/2024 End: 09-18-2024 XR Chest PA and Lateral XR CHEST 2V FRONTAL/LAT Radiology Routine Body mass index (BMI) of 50-59.9 in adult (HCC) 1 Occurrences starting 08/20/2023 until 09/18/2024 [facility] Work Phone: Comment on above: 1 Occurrences starti ng 08/20/2023 until 09/18/2024 [id number] 310 IV[facility] Work Phone: [facility] c NEGATED: Highlighted row has been ruled out! Planned Goals not documented [id number] 310 IV[facility] Work Phone: Immunizations Immunization Date Immunization Notes Care Provider Sonia miramontes 03-11-2023 influenza virus vacc ine, unspecified formulation Tacho Menendez DO Work Phone: [facility] Payers Date Payer Category Payer Self-pay [id number] 2022 Medicaid [id number] 2022 Medicaid [id number] [id number] 1991 Unknown [id number] 2.16.840.1.553531.3.579.2.59 3 1991 Unknown [id number] 2.16.840.1.366407.3.579.2.12 86 1991 Unknown [id number] 2.16.840.1.906222.3.579.2.12 86 1991 Unknown [id number] 2.16.840.1.593454.3.579.2.12 86 1991 Unknown [id number] 2.16.840.1.804311.3.579.2.12 86 1991 Unknown [id number] 2.16.840.1.157252.3.579.2.12 86 1991 Unknown [id number] 2.16.840.1.595137.3.579.2.12 59 1991 Unknown [id number] 2.16.840.1.985669.3.579.2.12 59 1991 Unknown [id number] 2.16.840.1.307147.3.579.2.12 59 1991 Unknown [id number] 2.16.840.1.049258.3.579.2.12 59 1991 Unknown [id number] 2.16.840.1.218208.3.579.2.12 59 1991 Unknown [id number] 2.16.840.1.752426.3.579.2.12 59 1991 Unknown [id number] 2.16.840.1.993505.3.579.2.12 59 1991 Unknown [id number] 2.16.840.1.277911.3.579.2.12 59 1991 Unknown [id number] 2.16.840.1.336287.3.579.2.12 59 1991 Unknown [id number] 2.16.840.1.990690.3.579.2.12 59 1991 Unknown [id number] 2.16.840.1.068378.3.579.2.12 59 1959 Medicaid [id number] Private Health Insurance [facility] [id number] Unknown [id number] Unknown Regular Insurance [id number] Unknown [employer] [id number] Unknown Regular Auto/Medical [id number] Unknown [id number] 2.16.840.1.596604.3.579.2.53 1 Unknown [id number] 2.16.840.1.091253.3.579.2.53 1 Unknown [id number] 2.16.840.1.079696.3.579.2.53 1 Unknown [id number] 2.16.840.1.842731.3.579.2.53 1 Unknown [id number] 2.16.840.1.453018.3.579.2.53 1 Social History Date Type Detail Facility Start: 12-02-2021 End: 05-17-2023 Tobacco smoking status NHIS Never smoked tobacco (finding) [facility] Start: 1990 Sex Assigned At Female F [facility] Start: 08-20-2023 End: 10-30-2023 Sex Assigned At [employer] Other Start: 05-17-2023 End: 08-20-2023 Tobacco use and exposure Smokeless tobacco non-user [facility] Work Phone: Start: 08-20-2023 End: 05-26-2024 Alcohol intake Current drinker of alcohol (finding) [facility] Start: 08-20-2023 End: 10-30-2023 History of Social function [facility] National Score (1-100), lower number is lower risk 86 [facility] Start: 08-20-2023 [facility] Start: 1990 Sex Assigned At Not on file C [facility] Start: 08-26-2023 Gender identity Identifies as female gender (finding) [facility] Start: 08-26-2023 Sexual orientation Heterosexual (yunior beyer) [facility] Start: 09-14-2023 [facility] How often to you hav e a [...] [facility] Start: 12-13-2014 End: 05-19-2024 Sex Female (finding) [facility] NEGATED: Highlighted row - - [id number] 310 IVF Work Phone: Functional Status Date Assessment Result Facility NEGATED: Highlighted row Functional performance Functional status health issues are not documented Disease [id number] 310 IV[facility] Work Phone: Mental Status Date Assessment Result Facility NEGATED: Highlighted row Cognitive function [Interpretation] Cognitive status health issues are not documented Disease [id number] 310 [facility] Work Phone: Clinical Notes 01-08-2023 to 05-26-2024 Priscilla Fernandez LPN - 05/26/2024 2:10 PM Craig Mcbride LPN - 05/17/2024 3:10 PM GERARDO [...] Morbid obesity with BMI of 50.0-59.9, adult (CMS/[facility]) Vaginal delivery Social History Tobacco Use [...] 06/2019 OTHER SURGICAL HISTORY 2020 IUI 07/10/20 [facility] SALPINGECTOMY Left 2011 ectopic REVIEW OF [...] nursing note reviewed. Exam conducted with a teamsite developer present. Vitals: Estimated body mass index is [...] Tacho Menendez DO documented in this encounter [facility] 05-17-2024 History of Presen t illness [...] Morbid obesity with BMI of 50.0-59.9, adult (CMS/[facility]) Vaginal delivery Social History Tobacco Use [...] 06/2019 OTHER SURGICAL HISTORY 2020 IUI 07/10/20 [facility] SALPINGECTOMY Left 2011 ectopic REVIEW OF [...] nursing note reviewed. Exam conducted with a teamsite developer present. Vitals: Estimated body mass index is [...] Tacho Menendez DO documented in this encounter [facility] 05-03-2024 History of Presen t illness [...] recent normal smear following initial abnormal smear Anegl's disease (CMS/HCC) Hypothyroidism (CMS/HCC) Morbid obesity (CMS/HCC) [...] Morbid obesity with BMI of 50.0-59.9, adult (CMS/[facility]) Vaginal delivery Social History Tobacco Use [...] 06/2019 OTHER SURGICAL HISTORY 2020 IUI 07/10/20 [facility] SALPINGECTOMY Left 2011 ectopic REVIEW OF [...] of: GERARDO Vazquez documented in this encounter [facility] 04-22-2024 History of Presen t illness [...] initial abnormal smear Nagel's disease (CMS/HCC) Hypothyroidism (CMS/HCC) Morbid obesity (CMS/HCC) Morbid obesity with BMI of 50.0-59.9, adult ([facility]) Vaginal delivery Social History Tobacco Use [...] 06/2019 OTHER SURGICAL HISTORY 2020 IUI 07/10/20 [facility] SALPINGECTOMY Left 2011 ectopic REVIEW OF [...] nursing note reviewed. Exam conducted with a teamsite developer present. Vitals: Estimated body mass index is [...] Tacho Menendez DO documented in this encounter [facility] 04-06-2024 History of Presen t illness [...] Morbid obesity with BMI of 50.0-59.9, adult (CMS/[facility]) Vaginal delivery Social History Tobacco Use [...] 06/2019 OTHER SURGICAL HISTORY 2020 IUI 07/10/20 [facility] SALPINGECTOMY Left 2011 ectopic REVIEW OF [...] week for routine OB appointment. Documented by Tosiha Castillo MA on behalf of: GERARDO Vazquez documented in this encounter [facility] 03-22-2024 History of Presen t illness Narrative Reason for Appointment: Patient ID: Jaleesa Arreita is a 34 y.o. female who presents [...] Morbid obesity with BMI of 50.0-59.9, adult (CMS/[facility]) Vaginal delivery Social History Tobacco Use [...] 06/2019 OTHER SURGICAL HISTORY 2020 IUI 07/10/20 [facility] SALPINGECTOMY Left 2011 ectopic REVIEW OF [...] nursing note reviewed. Exam conducted with a teamsite developer present. Vitals: Estimated body mass index is [...] Tacho Menendez DO documented in this encounter [facility] 02-23-2024 History of Presen t illness [...] Morbid obesity with BMI of 50.0-59.9, adult (CMS/[facility]) Vaginal delivery Social History Tobacco Use [...] 06/2019 OTHER SURGICAL HISTORY 2020 IUI 07/10/20 [facility] SALPINGECTOMY Left 2011 ectopic REVIEW OF [...] nursing note reviewed. Exam conducted with a teamsite developer present. Vitals: Estimated body mass index is [...] of: GERARDO Vazquez documented in this encounter [facility] 01-20-2024 History of Presen t illness [...] Morbid obesity with BMI of 50.0-59.9, adult (CMS/[facility]) Vaginal delivery Social History Tobacco Use [...] 06/2019 OTHER SURGICAL HISTORY 2020 IUI 07/10/20 [facility] SALPINGECTOMY Left 2011 ectopic REVIEW OF [...] nursing note reviewed. Exam conducted with a teamsite developer present. Vitals: Estimated body mass index is [...] notified. Pt has follow up appt at [facility] in four weeks. Pt to return to office in four weeks for scheduled OB appt. Documented by Priscilla Fernandez LPN on behalf of: Tacho Menendez DO documented in this encounter [facility] 10-09-2023 Note HNO ID: [id number] Author: LATONIA GREENE, PhD Service: ? Author Type: Psychologist Type: Progress Notes Filed: 10/17/2023 11:09 Note Text: [facility] BARIATRIC SURGERY BEHAVIORAL HEALTH EVALUATION BMI Surgical Pathway Visit type: Psychology Visit DATE OF SERVICE: October 09, 2023 TIME OF SERVICE: 1:00 PM - 2:00 PM COST CENTER: [facility] CPT CODE: - [id number] Virtual Psych Diagnostic Eval BILLING CODE: ENDO PSYL MAIN Jc DATE OF FIRST SERVICE THIS CYCLE: October 09, 2023 SESSION #: 1 I have communicated my name and active licensure. The patient's identity and physical location (see below) were verified at the time of this visit. Either the patient or their legal sales representative marine supplies has been informed of the risks and benefits of -- and alternatives to -- treatment through a remote evaluation and consents to proceed with the evaluation remotely. This evaluation is NOT intended for forensic, disability or child custody purposes. The patient e-signed a copy of the consent form via [employer]) and the [place] health care insurance benefits, fees for service, emergency [...] in case of emergency and/or disconnection. [address] [place] [address] (Change address in [facility], was mother) Alternate [employer] Bibi Arrieta (Mother) [phone] (Home Phone) Patient identified the following plan to follow in case of emergency: Go to emergency room (nearest is [facility]) or call 911. IDENTIFYING INFORMATION: Ms. [...] pt has l (more content not included)... [facility] 09-22-2023 Telephone encounter Note Can not schedule patient as there is already a patient scheduled for that day and time. Please advise. Thanks Meme Castrejon [facility] 09-22-2023 Telephone encounter Note ----- Message from Anna Ortiz RD sent at 09/17/2023 3:17 PM EDT ----- Regarding: virtual follow up Please schedule for a virtual up 10/16 at 1. The patient is aware, no call needed. Thank you! Anna [facility] 09-22-2023 Miscellaneous Notes Can not [...] levels, no answer, left vm. Tonya Senior APRN.[employer]RIX REPAIRER documented in this encounter [facility] 09-17-[address] - 09/17/2023 3:12 PM EDT 1. Read Nutritional Guidelines Section of Your Guide to Surgery by next session [email or web address]/ [email or web address]?la=en 2. Do not skip [...] full-liquid diet. Examples: Slim Fast Advanced Nutrition [place] Breakfast Essentials Light Start Drink mixed with [...] in the AM, 2 in the PM) www.bariatricfusion.RealTargeting - [employer]: 1 Bariatric Multivitamin and Calcium Citrate (total of 4220-8384 mg/day) * take calcium citrate separately from Multivitamin with iron at least 2 hours apart and 4 hours apart from additional calcium www.i[employer] NetworkareAzooo.RealTargeting - Bariatric Choice: 4 Complete Multivitamins (chewables) per day Www.bariatricchoice.com - Bariatric Advantage: 2 Multivitamins and 3 Calcium Citrate Chewables per day * take calcium citrate separately from Multivitamin with iron at least 2 hours apart and 4 hours apart from additional calcium Www.bariatricadvantage.[email or web address] Start practicing eating slowly, chewing each bite of food 20-30 x per bite, making meals last 20-30 minutes, separatign food and fluids by 30 minutes . Have all meals and snacks at the table with no distractions. Make placemat for reminders; work towards normal sleep/wake pattern Pre-op goal weight: 281 pounds Protein needs: 85 grams per day documented in this encounter [facility] 09-17-2023 Note HNO ID: [id number] Author: ANNA ORTIZ RD Service: ? Author Type: Registered Dietitian Type: Progress Notes Filed: 09/17/2023 15:19 Note Text: [facility] Nutrition Therapy: Virtual Consult - Initial Assessment I have communicated my name and active licensure. The patient?s identity and physical location were verified at the time of this visit. Either the patient or their legal sales representative marine supplies has been informed of the risks and [...] Your Guide to Surgery by next session [email or web address] -/[email or web address]/ [email or web address]?la=[email or web address] 2. Do not [...] Examples: ? Slim Fast Advanced Nutrition ? [place] Breakfast Essentials ?Light Start? Drink mixed with [...] AM, 2 in the PM) www.bariatricfusion.com - [employer] Health: 1 Bariatric Multivitamin and Calcium Citrate (total of 2365-8704 mg/day) * take calcium citrate separately from Multivitamin with iron at least 2 hours apart and 4 hours apart from additional calcium www.[employer].[email or web address] - Bariatric Choice: 4 Complete Multivitamins (chewables) per day Www.bariatricchoice.com - Bariatric Advantage: 2 Multivitamins and 3 Calcium Citrate Chewables per day * take calcium citrate separately from Multivitamin with iron at least 2 hours apart and 4 hours apart from additional calcium Www.bariatricadNEMOPTICage.[email or web address] Start practicing eating slowly, chewing each bite [...] and using Phen (more content not included)... [facility] 09-17-2023 History of Presen t illness Narrative [facility] Nutrition Therapy: Virtual Consult - Initial Assessment I have communicated my name and active licensure. The patient s identity and physical location were verified at the time of this visit. Either the patient or their legal sales representative marine supplies has been informed of the risks and [...] Your Guide to Surgery by next session [email or web address] -/[email or web address]/ [email or web address]?la=[email or web address] 2. Do not skip [...] full-liquid diet. Examples: Slim Fast Advanced Nutrition [place] Breakfast Essentials Light Start Drink mixed with [...] in the AM, 2 in the PM) www.bariatricfusion.RealTargeting - [employer] Health: 1 Bariatric Multivitamin and Calcium Citrate (total of 4368-0034 mg/day) * take calcium citrate separately from Multivitamin with iron at least 2 hours apart and 4 hours apart from additional calcium www.[employer].[email or web address] - Bariatric Choice: 4 Complete Multivitamins (chewables) per day Www.bariatricPostdeck.[email or web address] - Bariatric Advantage: 2 Multivitamins and 3 Calcium Citrate Chewables per day * take calcium citrate separately from Multivitamin with iron at least 2 hours apart and 4 hours apart from additional calcium Www.bariatricadNEMOPTICage.RealTargeting Start practicing eating slowly, chewing each bite [...] suggested by 180 Initial weight: 295 lbs. [place] body weight is 155 lbs. Excess body weight is 140 lbs. Goal weight pre-op is 281 lbs. Protein needs are estimated at 85gm (1.2 - protein/kg IBW) Patient meets the National Institutes of Health guidelines for weight loss surgery and has [employer] therefore is required to complete 0 [...] TIME: 2:25 PM documented in this encounter [facility] 09-11-2023 Telephone encounter Note Attempted to call pt, re: hypothyroid and low vitamin d levels, no answer, left vm. Tonya Senior APRN.MATRIX REPAIRER [facility] 09-01-2023 Note HNO ID: [id number] Author: LATONIA GREENE, PhD Service: ? Author Type: Psychologist Type: Progress Notes Filed: 09/01/2023 13:22 Note Text: [facility] Progress Note 09/01/2023 Billing code: Jc Patient did not attend, cancel, or reschedule this appointment. Provider left HIPAA compliant voicemail and MyChart message with contact information to reschedule. Latonia Greene PhD Clinical Psychologist [facility] 09-01-2023 History of Presen t illness Narrative [facility] Progress Note 09/01/2023 Billing code: Jc Patient did not attend, cancel, or reschedule this appointment. Provider left HIPAA compliant voicemail and MyChart message with contact information to reschedule. Latonia Greene PhD Clinical Psychologist documented in this encounter [facility] 08-20-2023 Note HNO ID: [id number] Author: TONYA SENIOR APRN.[facility] Service: ? Author Type: Nurse Practitioner Type: Progress Notes Filed: 08/20/2023 16:21 Note Text: have communicated my name and active licensure. The patient's identity and physical location were verified at the time of this visit. Either the patient or their legal sales representative marine supplies has been informed of the risks and benefits of -- and alternatives to -- treatment through a remote evaluation and consents to proceed with the evaluation remotely. [facility] CONSULT I have communicated my name and active licensure. The patient's identity and physical location were verified at the time of this visit. Either the patient or their legal sales representative marine supplies has been informed of the risks and [...] mass index (BMI) of 50-59.9 in adult ([facility]) 08/20/2023 Angel's thyroiditis 08/20/2023 High blood [...] mass index (BMI) of 50-59.9 in adult ([facility]) - ICD9: V85.43, ICD10: Z68.43 (primary diagnosis) Weight decreasing - Behavioral intervention, - Medical nutrition therapy with dietitian, and - Psychology - COMPLETE BLOOD COUNT AND DIFFERENTIAL - COMPREHENSIVE METABOLIC PANEL - FERRITIN - FOLATE, SERUM - HEMOGLOBIN A1C - (more content not included)... [facility] 08-20-2023 History of Presen t illness Narrative Images from the original note were not included. have communicated my name and active licensure. The patient's identity and physical location were verified at the time of this visit. Either the patient or their legal sales representative [employer] has been informed of the risks and benefits of -- and alternatives to -- treatment through a remote evaluation and consents to proceed with the evaluation remotely. [employer] MEDICAL CONSULT I have communicated my name and active licensure. The patient's identity and physical location were verified at the time of this visit. Either the patient or their legal sales representative [employer] has been informed of the risks and [...] PANEL - LIPID PANEL BASIC Tonya Senior APRN.MATRIX REPAIRER -- Recommend that she should not become [...] Obesity Medicine Visit documented in this encounter [facility] 06-13-2023 Evaluation note Encounter Date [...] weeks -Handed patient self referral to [facility] bariatric surgery program -Sqtsg-vq-otla A1c December 2022 5.4%-Follow up in clinic in 8 weeksThis note was created with voice recognition software. Please excuse errors in window sash installer. Jun, Dietary surveillance and counseling (ICD-10 - [...] for a goal of 5% weight reduction. [employer] Other 08-30-2023 Evaluation note* Encounter Date [...] on in the past and denies side buwpiyh-Ontff-fg-care A1c today 5.4%-Follow up in clinic in 4 weeksThis note was created with voice recognition software. Please excuse errors in window sash installer. Dec, Dietary surveillance and counseling (ICD-10 - [...] premade protein drink for breakfast, by plain Turkmen yogurt and flavor yourself with cinnamon or [...] with the patient, and documenting clinical information. [employer] Other chief complaint+Reason for visit Narrative* Chief Complaint Obesity Reason for Visit Exercise counseling Severe obesity (BMI >= 40) [facility] Work Phone: Chise complaint+Reason for visit Narrative* Chief Complaint Pos test, Cramping, Vaginal bleeding Reason for Visit Exercise counseling Severe obesity (BMI >= 40) [facility] Work Phone: Evaluation noteNo assessment information available [facility] Work Phone: evaluation note* Diagnosis Onset Date Resolution Status Exercise counseling acute Severe obesity (BMI >= 40) delilah kevin [facility] Work Phone: Evaluunxgs note* Diagnosis Body mass index (BMI) of 50-59.9 in adult (HCC)- Primary Body Mass Index 50.0-59.9, adult Angel's thyroiditis Chronic lymphocytic thyroiditis High blood cholesterol Pure hypercholesterolemia [facility] Diagnosis NO SHOW- Primary [facility]* Diagnosis Obesity, Class III, BMI 40-49.9 (morbid obesity) (HCC)- Primary Morbid obesity Dietary counseling Dietary surveillance and counseling [facility]* Diagnosis Vitamin D deficiency- Primary Unspecified vitamin D deficiency [facility]* Diagnosis 25 weeks gestation of Second trimester state, incidental Diabetes mellitus screening Screening for diabetes mellitus size inconsistent with dates H/O premature delivery [facility] Encounter for follow-up ultrasound [...] prior , currently documented in this encounter [facility]* Diagnosis Second trimester state, incidental [facility] Diagnosis 35 weeks gestation of Third trimester state, incidental [facility]* Diagnosis 37 weeks gestation of Third trimester state, incidental documented in this encounter [facility]* Diagnosis Third trimester state, incidental 38 weeks gestation of documented in this encounter [facility] HealthcareHistory general Narrative - Reported* Type Description Date Surgical History adnoidectomy Surgical History gall bladder Surgical History L Fallopian tube removed Hospitalization History See Above [employer] Other Hospital Discharge instructions Additional Instructions You may take eoqv-ekf-npzldfb cough and cold medication as needed You may take jdcy-xlh-dspzhes Tylenol and/or ibuprofen as needed Increase oral fluids Follow-up with family doctor as needed Return to the ER for any acute difficulty breathing high fever vomiting or [facility] [facility] Work Phone: Hospital Discharge instructions Additional Instructions Nothing into vagina until seen by BLENDING TANK TENDER May take Tylenol for discomfort Increase oral fluids Follow-up with BLENDING TANK TENDER Return to the ER for heavy bleeding greater than a pad an hour feeling dizzy lightheaded or any other [facility] Work Phone: Hospital Discharge instructions Additional Instructions Follow-up with your OB in the next week.[facility] [facility] [employer] Work Phone: InstructionsNot on filedocumented in this encounter [facility] [place] SystemReason for referral (narrative)* Diagnostic Procedure Only (Routine) - Pending Review Specialty Diagnoses / Procedures Referred By Contac t Referred To Contact [facility] Diagnoses Body mass index (BMI) of 50-59.9 in adult (HCC) Procedures US ABD RIGHT UPPER QUADRANT US ABDOMINAL REAL TIME W/IMAGE LIMITED Tonya Senior APRN.MATRIX REPAIRER [address] [place] [address] [place] [id number] Referral ID Status Reason Start Date Expiration Date Visits Requested Visits Authorized [id number] Pending Review Auto-Generat ed Referral 08/20/2023 09/18/2024 1 1 * Outpatient Procedure (Routine) - Pending Review Specialty Diagnoses / Procedures Referred By Contchanel t Referred To [facility] Diagnoses Body mass index (BMI) of 50-59.9 in adult (HCC) Procedures ECG COMPLETE ECG ROUTINE ECG W/LEAST 12 LDS W/I&R Tonya Senior APRN.CNP [address] [place] [address] [facility] [address] [address] Referral ID Status Reason Start Date Expiration Date Visits Requested Visits Authorized [id number] Pending Review Auto-Generat ed Referral 08/20/2023 08/19/2024 1 1 [facility] Summary Purpose Family History No Family [...] content) DATE CREATED AUTHOR 10/31/[address] [facility] ical Center DATE CREATED AUTHOR AUTHOR'S ORGANIZ ATION 04/23/2020 [facility] DATE CREATED AUTHOR AUTHOR'S ORGANIZ ATION 08/08/2020 [facility] DATE CREATED AUTHOR AUTHOR'S ORGANIZ ATION 08/22/2020 [facility] ical Center DATE CREATED AUTHOR AUTHOR'S ORGANIZ ATION 06/11/2022 [facility] DATE CREATED AUTHOR AUTHOR'S ORGANIZ ATION 09/06/2023 [facility] DATE CREATED AUTHOR AUTHOR'S ORGANIZ ATION 10/03/2023 [facility] DATE CREATED AUTHOR AUTHOR'S ORGANIZ ATION 10/18/2023 [facility] DATE CREATED AUTHOR AUTHOR'S ORGANIZ ATION 01/20/2024 [facility] DATE CREATED AUTHOR AUTHOR'S ORGANIZ ATION 04/30/[address] [facility] DATE CREATED AUTHOR AUTHOR'S ORGANIZ ATION 05/24/2024 [facility] DATE CREATED AUTHOR AUTHOR'S ORGANIZ ATION 05/29/2024 [facility] d[facility] Specialists EPIC Care Teams (unrecognized sec tion and content) Team Status: Inactive Member Role Status Dates Services [facility] Primary Care Provider Active Ck To PA-C Emergency Provider Active Team Status: Active Member Role Status Dates Services [facility] Primary Care Provider Active Team Status: Inactive Member Role Status Dates Services [facility] Primary Care Provider Active Marychuy Kyle , [facility]- Emergency Provider Active Team Status: Inactive Member Role Status Dates Nicholas Michaels DO Attending Provider Active St art: June 13, 2023 End: June 13, 2023 Team Status: Active Member Role Status Dates Services [facility] Primary Care Provider Active Start: June 13, 2023 Nicholas Michaels DO Attending Provider Active St art: June 13, 2023 Team Status: Inactive Member Role Status Dates Services [facility] Primary Care Provider Active Start: August 07, 2023 End: August 07, 2023 Nicholas Michaels DO Attending Provider Active St art: August 07, 2023 End: August 07, 2023 Team Status: Inactive Member Role Status Dates [facility] Primary Care Provider Active Start: October 06, 2023 End: October 06, 2023 Marychuy Kyle , [facility]- Emergency Provider Active Start: October 06, 2023 End: October 06, 2023 Team Status: Inactive Member Role Status Dates [facility] Primary Care Provider Active Start: February 26, 2024 End: February 26, 2024 Ck To PA-C Emergency Provider Active Start: February 26, 2024 End: February 26, 2024 Team Status: Inactive Member Role Status Dates [facility] Primary Care Provider Active [...] this informatio n is protected by the [facility] Confidentiality of Alcohol and Drug Abuse Patient Records regulations: The Federal rules restrict any use of the information to criminally investigate or prosecute any alcohol or drug abuse patient.[facility] Hospital[facility] the event this information is protected by the Federal Confidentiality of Alcohol and Drug Abuse Patient Records regulations: The Federal rules restrict any use of the information to criminally investigate or prosecute any alcohol or drug abuse patient.[facility] HospitalIn the event this information is protected by the Federal Confidentiality of Alcohol and Drug Abuse Patient Records regulations: The Federal rules restrict any use of the information to criminally investigate or prosecute any alcohol or drug abuse patient.[facility] HospitalIn the event this information is protected by the Federal Confidentiality of Alcohol and Drug Abuse Patient Records regulations: The Federal rules restrict any use of the information to criminally investigate or prosecute any alcohol or drug abuse patient.[facility] HospitalIn the event this information is protected by the Federal Confidentiality of Alcohol and Drug Abuse Patient Records regulations: The Federal rules restrict any use of the information to criminally investigate or prosecute any alcohol or drug abuse patient.[facility] HospitalIn the event this information is protected by the Federal Confidentiality of Alcohol and Drug Abuse Patient Records regulations: The Federal rules restrict any use of the information to criminally investigate or prosecute any alcohol or drug abuse patient.[facility] FOR RECORDS PERTAINING TO PATIENTS [...] THE PRIMARY CLINICAL RECORDS. [facility] [employer] [facility]. provides no warranty or guarantee of the accuracy or completeness of information in this document.
[2024-05-31 17:07] VITALS: BP 131/89; PULSE 96
[2024-05-31 17:14] VITALS: TEMP 36.2
[2024-05-31 17:45] LABS: Hematocrit 35.2 % (36.0-48.0); Hemoglobin 11.7 g/dL (12.0-16.0); Mean Corpuscular HGB Conc 33.2 g/dL (29.9-35.2); Mean Corpuscular Hemoglobin 29.6 pg (26.7-34.0); Mean Corpuscular Volume 89.1 fL (81.0-99.0); Mean Platelet Volume 9.8 fL (9.5-13.5); Platelet Count 325 10^3/uL (150-450); Red Blood Count 3.95 10^6/uL (4.20-5.40); Red Cell Distribution Width 13.1 % (11.0-15.0); White Blood Count 6.8 10^3/uL (4.0-11.0)
[2024-05-31 17:57] LABS: Amphetamine Screen Urine NEGATIVE (NEGATIVE); Barbiturates Screen Urine NEGATIVE (NEGATIVE); Benzodiazepines Screen Urine NEGATIVE (NEGATIVE); Buprenorphine Screen Urine NEGATIVE (NEGATIVE); Cannabinoid Screen Urine NEGATIVE (NEGATIVE); Cocaine Screen Urine NEGATIVE (NEGATIVE); Methadone Screen Urine NEGATIVE (NEGATIVE); Methamphetamines Screen Urine NEGATIVE (NEGATIVE); Opiate Screen Urine NEGATIVE (NEGATIVE); Oxycodone Screen Urine NEGATIVE (NEGATIVE); Phencyclidine Screen Urine NEGATIVE (NEGATIVE); Tricyclic Antidepressant Urine NEGATIVE (NEGATIVE)
[2024-05-31] MEDS: DINOPROSTONE 10 MG VAG INSERT.ER VAGINAL (18:09)
[2024-05-31 18:16] VITALS: BP 144/89; PULSE 95
[2024-05-31 20:29] VITALS: BP 142/93; PULSE 99; TEMP 36.9
[2024-05-31 22:27] VITALS: BP 114/55; PULSE 99
[2024-06-01] VITALS (49 sets, daily range): BP systolic 90–143; BP diastolic 54–85; PULSE 82–109; TEMP 36.4–36.7
[2024-06-01] MEDS: 0.9 % SODIUM CHLORIDE 1,000 ML 125 ML IV ×2 (06:55→14:38)
[2024-06-01] MEDS: OXYTOCIN/0.9 % SODIUM CHLORIDE 10 UNITS/500 ML PLAST..BAG 6 UNIT IV (06:55)
[2024-06-01] MEDS: NALBUPHINE HCL 10 MG/ML AMPULE IV (14:39)
[2024-06-01] MEDS: ROPIVACAINE HCL/PF 400 MG/200 ML PREMIX 9 MG EPIDURAL (16:54)
[2024-06-01] MEDS: 0.9 % SODIUM CHLORIDE 1,000 ML 999 ML IV ×2 (17:02→21:00)
[2024-06-01] MEDS: OXYTOCIN/0.9 % SODIUM CHLORIDE 20 UNITS/1,000 ML PLAST..BAG 999 UNIT IV (21:34)
--- NOTE | 2024-06-01 21:40 | PM.OBPRCVD ---
Procedure Procedure: Procedures Operation Date: 06/01/24 21:30 <No data on this case meets the specified criteria> Intrapartal events: None Induction method: per pitocin protocol Delivery augmentation: rupture of membranes and pitocin Delivery monitor: external FHT and external uterine Route of delivery: Episiotomy Description: none L&D Laceration Description: none Estimated blood loss (mL): 200 Anesthesia type: Epidural Disposition: floor Infant Delivery date: 06/01/24 Gender: male presentation: vertex Placental delivery description: Spontaneous cord description: 3 Vessels
[2024-06-01] MEDS: IBUPROFEN 600 MG TABLET PO (23:29)
[2024-06-02] VITALS (9 sets, daily range): BP systolic 128–161; BP diastolic 63–105; PULSE 88–104; TEMP 36.4–36.8; O2SAT 97
[2024-06-02] MEDS: IBUPROFEN 600 MG TABLET PO ×3 (06:50→23:29)
[2024-06-02 06:54] LABS: Basophils Percent Auto 0.2 % (0.2-2.0); Eosinophils Absolute Auto 0.1 10^3/uL (0.0-0.7); Eosinophils Percent Auto 1.3 % (0.9-7.0); Hematocrit 33.3 % (36.0-48.0); Immature Granulocytes Abs Auto 0.04 10^3/uL (0.00-0.03); Immature Granulocytes Pct Auto 0.4 % (0.0-0.5); Lymphocytes Absolute Auto 2.6 10^3/uL (1.2-3.8); Lymphocytes Percent Auto 28.3 % (20.5-60.0); Mean Corpuscular Hemoglobin 29.7 pg (26.7-34.0); Mean Platelet Volume 9.4 fL (9.5-13.5); Monocytes Absolute Auto 0.6 10^3/uL (0.3-0.8); Monocytes Percent Auto 6.6 % (1.7-12.0); Neutrophils Absolute Auto 5.7 10^3/uL (1.4-6.5); Neutrophils Percent Auto 63.2 % (43.0-75.0); Platelet Count 278 10^3/uL (150-450); Red Cell Distribution Width 13.2 % (11.0-15.0); White Blood Count 9.1 10^3/uL (4.0-11.0)
--- NOTE | 2024-06-02 07:13 | W.PC.ACHO ---
Registration Status: ADM IN Primary Language: Nicaraguan Preferred Language: Nicaraguan Active Medications Generic Name Dose Route Start Last Admin Trade Name Freq PRN Reason Stop Dose Admin Acetaminophen 650 mg 06/01/24 21:41 Acetaminophen 325 Mg Tablet PO Q6H PRN Mild Pain Al Hydroxide/Mg Hydroxide 2,400 mg 06/01/24 21:41 Magnesium Hydroxide 2,400 Mg/10 Ml Oral.Susp PO Q6H PRN Dyspepsia Benzocaine/Menthol 1 applic 06/01/24 21:41 Benzocaine/Menthol 85 Gram [place] Bottle TOPICAL Q2H PRN Pain Carboprost Tromethamine 250 mcg 05/31/24 16:43 Carboprost Tromethamine 250 Mcg/Ml 1 Ml Vial IM 06/02/24 16:43 Q15M PRN Bleeding Diphtheria/Pertussis/Tetanus Vacc 0.5 ml 06/03/24 09:00 Adacel Diph,Pertuss(Acell),Tet Vac/Pf 0.5 Ml Adult Syringe IM 06/03/24 09:01 .ONCE ONE Docusate Sodium 100 mg 06/02/24 09:00 Docusate Sodium 100 Mg Capsule PO BID PATT Fentanyl Citrate 100 mcg 05/31/24 21:05 Fentanyl Citrate/Pf 100 Mcg/2 Ml Vial EPIDURAL ONCE PRN epidural Fentanyl Citrate 100 mcg 05/31/24 21:05 Fentanyl Citrate/Pf 100 Mcg/2 Ml Vial EPIDURAL ONCE PRN epidural Tranexamic Acid 1,000 mg/ 110 mls @ 440 mls/hr 05/31/24 16:43 Sodium Chloride IV 06/02/24 16:43 ONCE PRN Uterine Bleeding Sodium Chloride 1,000 mls @ 125 mls/hr 05/31/24 17:30 06/01/24 21:31 Sodium Chloride 0.9% 1,000 Ml IV Infused .Q8H PATT Infusion Oxytocin/Sodium Chloride 10 units in 500 mls @ 6 mls/hr 06/01/24 06:00 06/01/24 20:40 Pitocin 10 Unit/500 Ml-Ns IV Infused TITR PATT Infusion Protocol 2 MILLIUNIT/MIN Ropivacaine/Sodium Chloride 400 mg in 200 mls @ 6 mls/hr 05/31/24 21:15 06/01/24 21:35 Naropin 0.2% 400 Mg/200 Ml Bag EPIDURAL Infused Q24H PATT Infusion Ibuprofen 600 mg 06/01/24 21:41 06/02/24 06:50 Ibuprofen 600 Mg Tablet PO 600 mg Q6H PRN Administration Moderate Pain Lidocaine 5 ml 05/31/24 16:43 Lidocaine Viscous 2% 15 Ml Solution TOPICAL 06/02/24 16:48 ONCE PRN Pain Lidocaine 1 ml 05/31/24 16:43 Lidocaine Hcl 1% 200 Mg/20 Ml Mdv INJ 06/02/24 16:48 ONCE PRN Pain Measles/Mumps/Rubella Vaccine Live 0.5 ml 06/03/24 09:00 Measles,Mumps,Rubella Vacc/Pf 0.5 Ml Vial SQ 06/03/24 09:01 .ONCE ONE Methylergonovine Maleate 0.2 mg 05/31/24 16:43 Methylergonovine Maleate 0.2 Mg/Ml Ampule IM 06/02/24 16:43 ONCE PRN Uterine Contractility/Contract Methylergonovine Maleate 0.2 mg 05/31/24 16:43 Methylergonovine Maleate 0.2 Mg Tablet PO 06/02/24 16:43 Q4H PRN Uterine Contractility/Contract Misoprostol 600 mcg 05/31/24 16:43 Misoprostol 100 Mcg Tablet PO 06/02/24 16:43 ONCE PRN Uterine Bleeding Misoprostol 800 mcg 05/31/24 16:43 Misoprostol 100 Mcg Tablet SL 06/02/24 16:43 ONCE PRN Uterine Bleeding Misoprostol 1,000 mcg 05/31/24 16:43 Misoprostol 100 Mcg Tablet VA 06/02/24 16:43 ONCE PRN Uterine Bleeding Nalbuphine HCl 10 mg 05/31/24 16:43 06/01/24 14:39 Nalbuphine Hcl 10 Mg/Ml Ampule IV 10 mg Q3H PRN Administration Pain Ondansetron HCl 4 mg 05/31/24 16:43 Ondansetron Pf 4 Mg/2 Ml Vial IV Q6H PRN Nausea And Vomiting Ondansetron HCl 4 mg 05/31/24 16:43 Ondansetron 4 Mg Rapdis Tablet SL Q6H PRN Nausea And Vomiting Oxytocin 10 unit 05/31/24 16:43 Oxytocin 10 Unit/Ml Vial IM 06/02/24 16:43 ONCE PRN post Senna 17.2 mg 06/01/24 20:00 Sennosides 8.6 Mg Tablet PO QHS PRN Constipation Simethicone 80 mg 06/01/24 21:41 Simethicone 80 Mg Tab.Chew PO QID PRN Abdominal Distention Temazepam 15 mg 06/01/24 21:41 Temazepam 15 Mg Capsule PO QHS PRN Sleep Witch Ashlie/Glycerin 1 pad 06/01/24 21:41 Glycerin/Witch Ashlie Pads TOPICAL Q2H PRN Pain Diet Category Date Time Status Regular Consistency Diet Diet 06/01/24 21:41 Active Respiratory Oxygen Delivery Method Room Air
--- NOTE | 2024-06-02 17:25 | P.OBPN_ITS ---
OB - PN: Subj Subjective Patient comments: no complaints and pain well controlled [place] status: doing well Exam Constitutional Vital Signs, click to edit/add: Last Vital Signs Temp 98.2 F 06/02/24 09:00 Pulse 96 H 06/02/24 08:36 Resp 16 06/02/24 09:00 BP 143/63 H 06/02/24 08:36 O2 Del Method Room Air 06/02/24 08:30 Documenting provider has reviewed patient's vital signs: yes Common normals: no apparent distress Respiratory Common normals: clear to auscultation bilaterally Cardio Common normals: regular rate and regular rhythm GI Common normals: Normal to inspection, nondistended, normoactive bowel sounds present Extremity Common normals: no clubbing, cyanosis or edema and no calf tenderness Results Labs Labs: Short CBC 06/02/24 Range/Units 06:48 WBC 9.1 (4.0-11.0) 10^3/uL Hgb 11.0 L (12.0-16.0) g/dL Hct 33.3 L (36.0-48.0) % Plt Count 278 (150-450) 10^3/uL OB - PN: A/P Plan - Vaginal Delivery day: 1 Plan: routine care Time Spent with Patient Time: Total time spent is greater than 50% in coordination of care (as documented) at patient's floor/unit and/or counseling patient: Total time spent with greater than 50% in coordination of care (as documented) at patient's floor/unit and/or counseling patient: less than 15 minutes
--- NOTE | 2024-06-03 00:37 | P.OBPN_ITS ---
OB - PN: Subj Subjective Patient comments: no complaints and pain well controlled [place] status: doing well Exam Constitutional Vital Signs, click to edit/add: Last Vital Signs Temp 97.7 F 06/02/24 23:55 Pulse 97 H 06/02/24 23:55 Resp 18 06/02/24 23:55 BP 141/95 H 06/02/24 23:55 Pulse Ox 97 06/02/24 23:55 O2 Del Method Room Air 06/02/24 23:55 Documenting provider has reviewed patient's vital signs: yes Common normals: no apparent distress Respiratory Common normals: clear to auscultation bilaterally Cardio Common normals: regular rate and regular rhythm GI Common normals: Normal to inspection, nondistended, normoactive bowel sounds present Extremity Common normals: no clubbing, cyanosis or edema and no calf tenderness Results Labs Labs: Short CBC 06/02/24 Range/Units 06:48 WBC 9.1 (4.0-11.0) 10^3/uL Hgb 11.0 L (12.0-16.0) g/dL Hct 33.3 L (36.0-48.0) % Plt Count 278 (150-450) 10^3/uL OB - PN: A/P Plan - Vaginal Delivery day: 2 Plan: routine care, discharge home and follow up 6 weeks Time Spent with Patient Time: Total time spent is greater than 50% in coordination of care (as documented) at patient's floor/unit and/or counseling patient: Total time spent with greater than 50% in coordination of care (as documented) at patient's floor/unit and/or counseling patient: less than 15 minutes
--- OUTSIDE RECORDS SUMMARY | 2024-06-03 01:58 | XMS_ITS | CCD ---
Author Organization [facility] Care Team Providers Care Service Attendant Cafeteria Name Role Phone Agustin Patton Unavailable Unavailable Agustin Patton Unavailable Unavailable Bayron Mccarty Unavailable Unavailable Unavailable Unavailable Unavailable Unavailable Unavailable Unavailable [facility] Primary Care Provider DEMETRIUS To Emergency Provider DR TACHO MENENDEZ Attending Unavailable DR TACHO MENENDEZ Consulting Unavailable DR TACHO MENENDEZ Admitting Unavailable [facility] Primary Care Provider [facility] Marychuy E Emergency Provider Nicholas Michaels Unavailable [facility] Primary Care Provider DO Nicholas Michaels Attending Provider Unavailable Primary Care Provider Unavailabl e Unavailable Primary Care Provider Unavailabl e LATONIA GREENE Attending Unavailable TONYA SENIOR Attending Unavailable [facility] Primary Care Provider [facility] Marychuy E Emergency Provider LATONIA GREENE Referring Unavailable LATONIA GREENE Attending Unavailable ANNA ORTIZ Attending Unavailable TONYA SENIOR Referring Unavailable TOYNA SENIOR Referring Unavailable TACHO MENENDEZ Referring Unavailable MAKEDA GROSS Attending Unavailable TACHO MENEDNEZ Referring Unavailable Unavailable Primary Care Provider Unavailabl e [facility] Primary Care Provider DEMETRIUS To Emergency Provider Unavailable Primary Care Provider UnavailDO Devika Nicholas Emergency Provider [phone] SHON, TACHO R Referring Unavailable SHON, TACHO R Referring Unavailable SHON, TACHO R Referring Unavailable [facility] Primary Care Provider Ck To PA-C Emergency Provider [phone] Devika De La Garza DO Emergency Provider Shon DOTacho Attending Provider [facility] Primary Care Unavaila ble Bullimore, Marychuy E Admitting Unavailable Bullimore, Marychuy E Attending Unavailable Shon, Tacho Admitting Unavailable Shon, Tacho Attending Unavailable [facility] Primary Care Unavaila Nicholas Willams Admitting Unavailable Nicholas Michaels Attending Unavailable Ck To Attending Unavailable [facility] Primary Care Unavaila Ck Castrejon Admitting Unavailable Devika De La Garza Admitting Unavailable Devika De La Garza Attending Unavailable [facility] Primary Care Unavaila ble SHON, TACHO Attending [...] mg/ml oral solution (3 sources) Phenothiazine, Uncompetitive W-ocbcck-W-aspartate Receptor Antagonist, Sigma-1 Agonist Start: 02-26-2024 take [...] Daily 30 tablet 11 10/30/2023 10/29/2024 Active [place] (No Known Home Meds) (3 sources) Start: 10-06-2023 [place] (No Kn own Home Meds) Active October 06, 2023 12:00am Start: 06-18-2022 [place] (No Kn own Home Meds) Active June [...] oral solution (8 sources) alpha-Adrenergic Agonist, Uncompetitive C-ziittp-E-asparta te Receptor Antagonist, Sigma-1 Agonist Start: 2 [...] 26, 2019 11:58am July 28, 2020 6:27pm Kblcxusx-Itp-Wi-Fa () 1 mg Tablet (8 sources) Start: 12-31-2020 End: 07-04-2021 take 1 tablet by mouth once Hpnkaogi-Ykf-Sr-Fa () 1 mg Tablet Discontinued TAB PO December 30, 2020 11:00pm July 04, 2021 9:48am Start: 12-31-2020 End: 07-04-2021 take 1 tablet by mouth once Delagwmi-Lcf-No-F a () 1 mg Tablet Discontinued TAB [...] 9:55am Start: 06-19-2020 take 1 capsule by [facility] twice daily Progesterone Micronized 100 MG Oral Capsule TAKE 1 CAPSULE Twice daily insert capsules vaginally Quantity: 30 Refills: 3 Bayron Mccarty MD Start : 19-Jun-2020 Active sennosides, care home 8.6 mg oral tablet (1 source) take 4 tablets by [facility] every twenty-four hours Senna 8.6 MG 4 [...] [facility] Basophils/100 WBC (Bld) 0.2 % 0.2 - 2.0 % [facility] Eosinophils/100 WBC (Bld) 1.3 % 0.9 - 7.0 % [facility] Erythrocyte distribution width (RBC) [Ratio] 13.2 % 11.0 - 15.0 % [facility] Hematocrit (Bld) [Volume fraction] 33.3 % Low 36.0 - 48.0 % [facility] Hemoglobin (Bld) [Mass/Vol] 11 g/dL Low 12.0 - 16.0 g/dL [facility] IMMATURE GRANULOCYTES ABS AUTO 0.04 High [facility] Immature granulocytes/100 WBC (Bld) 0.4 % 0.0 - 0.5 % [facility] Interpretation and review of laboratory results Abnormal [facility] LYMPHOCYTES ABSOLUTE AUTO 2.6 [facility] Lymphocytes/100 WBC (Bld) 28.3 % 20.5 - 60.0 % [facility] MCH (RBC) [Entitic mass] 29.7 pg 26.7 - 34.0 pg [facility] MCHC (RBC) [Mass/Vol] 33 g/dL 29.9 - 35.2 g/dL [facility] MCV (RBC) [Entitic vol] 90 fL 81.0 - 99.0 fL [facility] MONOCYTES ABSOLUTE AUTO 0.6 [facility] Monocytes/100 WBC (Bld) 6.6 % 1.7 - 12.0 % [facility] NEUTROPHILS ABSOLUTE AUTO 5.7 [facility] Neutrophils/100 WBC (Bld) 63.2 % 43.0 - 75.0 % [facility] Platelet mean volume (Bld) [Entitic vol] 9.4 fL Low 9.5 - 13.5 fL [facility] TBH EO # 0.1 [facility] TBH PLT 278 [facility] TB RBC 3.7 Low [facility] TB WBC 9.1 [facility] HMHP CBC WITH PLATELET NO DI FFERENTIALon 05-31-2024 Erythrocyte distribution width (RBC) [Ratio] 13.1 % 11.0 - 15.0 % [facility] Hematocrit (Bld) [Volume fraction] 35.2 % Low 36.0 - 48.0 % [facility] Hemoglobin (Bld) [Mass/Vol] 11.7 g/dL Low 12.0 - 16.0 g/dL [facility] Interpretation and review of laboratory results Abnormal [facility] MCH (RBC) [Entitic mass] 29.6 pg 26.7 - 34.0 pg [facility] MCHC (RBC) [Mass/Vol] 33.2 g/dL 29.9 - 35.2 g/dL [facility] MCV (RBC) [Entitic vol] 89.1 fL 81.0 - 99.0 fL [facility] Platelet mean volume (Bld) [Entitic vol] 9.8 fL 9.5 - 13.5 fL [facility] TBH PLT 325 [facility] TBH RBC 3.95 Low [facility] TBH WBC 6.8 [facility] ALL CBC WITH AUTO DIFFon BASOPHILS ABSOLUTE AUTO 0 [facility] Basophils/100 WBC (Bld) 0.3 % 0.2 - 2.0 % [facility] Eosinophils/100 WBC (Bld) 1.8 % 0.9 - 7.0 % [facility] Erythrocyte distribution width (RBC) [Ratio] 13 % 11.0 - 15.0 % [facility] Hematocrit (Bld) [Volume fraction] 36.5 % 36.0 - 48.0 % [facility] Hemoglobin (Bld) [Mass/Vol] 12.4 g/dL 12.0 - 16.0 g/dL [facility] IMMATURE GRANULOCYTES ABS AUTO 0.03 [facility] Immature granulocytes/100 WBC (Bld) 0.4 % 0.0 - 0.5 % [facility] Interpretation and review of laboratory results Abnormal [facility] LYMPHOCYTES ABSOLUTE AUTO 2.2 [facility] Lymphocytes/100 WBC (Bld) 31.4 % 20.5 - 60.0 % [facility] MCH (RBC) [Entitic mass] 30 pg 26.7 - 34.0 pg [facility] MCHC (RBC) [Mass/Vol] 34 g/dL 29.9 - 35.2 g/dL [facility] MCV (RBC) [Entitic vol] 88.4 fL 81.0 - 99.0 fL [facility] MONOCYTES ABSOLUTE AUTO 0.5 [facility] Monocytes/100 WBC (Bld) 7.5 % 1.7 - 12.0 % [facility] NEUTROPHILS ABSOLUTE AUTO 4.1 [facility] Neutrophils/100 WBC (Bld) 58.6 % 43.0 - 75.0 % [facility] Platelet mean volume (Bld) [Entitic vol] 9.6 fL 9.5 - 13.5 fL [facility] TBH EO # 0.1 [facility] TB PLT 380 [facility] RBC 4.13 Low [facility] TB WBC 7 [facility] BOX TESTon 05-22-2024 BOX TEST RESULT SEE SCANNED REPORT N [facility] BOX TEST SENT OUT GROUP B STREP [facility] BOX1 [facility] BOX2 05/17/24 [facility] GROUP B STREP [facility] Strep B Culture (PCN Allergi c)on 05-17-2024 Strep B Culture (PCN Allergic) Strep B Only Cult No Group B Beta Streptococcus Isolated 3 Days PERFORMED BY: [place] [address] PATHOLOGIST CHIEF CRNA APOLINAR POLANCO M.D. Normal [facility] Comment on above: Performed By: #### C USTB(PCN) #### [address] Urinalysis macro (dipstick) panel (U)on 05-17-2024 Bilirubin, UA Negative Negative - 4(70) +++ mg/dL [facility] Blood, UA Negative Negative - 50 Bradley/mcL [facility] Clarity, UA Clear [facility] Color, UA Jessica [facility] Glucose, UA Negative [...] Positive [facility] pH, UA 6.5 5 - 9 [facility] Protein, UA Positive Negative - 2000(20) ++++ mg/dL [facility] Comment on above: 30 Spec Grav, UA 1.03 1 - 1.03 [facility] Urobilinogen, UA 0.2 0.2 - 12 mg/dL [facility] ALL THYROID STIM HORMONEon 1 07-04-2023 TSH Qn 2.422 m[IU]/L [facility] Urinalysis macro (dipstick) panel (U)on 05-03-2024 Bilirubin, [...] Positive [facility] pH, UA 6 5 - 9 [facility] Protein, UA Negative Negative - 1999(20) ++++ mg/dL [facility] Spec Grav, UA 1.03 1 - 1.03 [facility] Urobilinogen, UA 0.2 0.2 - 12 mg/dL [facility] Urinalysis macro (dipstick) panel (U)on 04-22-2024 [...] mg/dL [facility] Leukocytes, UA Trace Negative - 500+++ Gabby/mcL [facility] Nitrite, UA Negative Negative - Positive [facility] pH, UA 6 5 - 9 [facility] Protein, UA Positive Negative - 1999(20) ++++ mg/dL [facility] Comment on above: 30 Spec Grav, UA 1.025 1 - 1.03 [facility] Urobilinogen, UA 1.0 0.2 - 12 mg/dL [facility] Urinalysis macro (dipstick) panel (U)on 04-06-2024 [...] Urobilinogen, UA 0.2 0.2 - 12 mg/dL [facility] Urinalysis macro (dipstick) panel (U)on 03-22-2024 [...] Urobilinogen, UA 1.0 0.2 - 12 mg/dL [facility] ALL CBC WITH AUTO DIFFon BASOPHILS [...] [facility] RBC 3.64 Low [facility] WBC 6.6 [facility] BioFire Not Detectedon 03-05 BioFire Not Detected Not detected Normal Not Detecte T adele [facility] Comment on above: Result Comment: This is a duplicate RP2.1 COVID (PCR) result to be used for statistical tracking purpose only. PERFORMED BY: [facility] [address] PATHOLOGIST CHIEF CRNA LION STANLEY M.D. Performed By: #### C BC, CMP, HCGQNT #### [facility] [address] [place] [id number] [facility] COVID-19 Detected/Not Detect edOrdered By: Devika De La Garza on 03-05-2024 SARS-CoV-2 (COVID-19) RNA YANET+non-probe Ql (Nph) Not detected Not Detecte [facility] Comment on above: This is a duplicate RP2.1 COVID (PCR) result to be used for statistical tracking purpose only. ECG 12 lead ECGon 03-05-2024 [address] [facility] [address] [place] [address] [place] [address] Electrocardiograph Report Signed Patient: Jaleesa Arrieta MR#: [id number] [birth year] : 1990 Acct:[id number] Age/Sex: 33 / F ADM Date: 03/05/24 Loc: ER Room: Type: [facility] ER Attending Dr: Ordering Provider: [...] Confirmed by DEVIKA DE LA GARZA DO ([id number]) on 03/06/2024 1:44:25 AM Referred By: Electronically Signed By: DEVIKA DE LA GARZA DO Transcribed By: MUS Signed By Devika De La Garza DO 03/06 0144 Normal [facility] Quick Strepon 03-05-2024 Quick Strep Streptococcus pyogen es Ag [Presence] in Throat by Rapid immunoassay Negative for Group A Strep Antigen Note 1 NOTE 2 Results are those of a screening test. NOTE 3 If clinically indicated please order a culture. NOTE 4 NOTE 5 Reference range = Negative PERFORMED BY: [place] [address] PATHOLOGIST CHIEF CRNA LION STANLEY M.D. Normal [facility] Comment on above: Performed By: #### Q S, RESP PANEL UPP., BIOFIRECOVNOTDE #### [address] Respiratory (Upper) Panel, P CRon 03-05-2024 [...] A H3 Blank Space ------ PERFORMED BY: [place] [address] PATHOLOGIST CHIEF CRNA LION STANLEY M.D. Normal [facility] Comment on above: Performed By: #### Q S, RESP PANEL UPP., BIOFIRECOVNOTDE #### [facility] [address] Respiratory pathogens DNA an d RNA panel - Nasopharynx by YANET with non-probe detectionOrdered By: Devika De La Garza on 03-05-2024 Respiratory pathogens DNA and RNA panel YANET+non-probe (Nph) Respiratory pathogens DNA and RNA panel - Nasopharynx by YANET with non-probe detection [facility] Respiratory pathogens DNA and RNA panel YANET+non-probe (Nph) [facility] Streptococcus pyogenes antig en detectionOrdered By: Devika De La Garza on 03-05-2024 S. pyogenes Ag Ql (Unsp spec) Streptococcus pyogenes antigen detection [facility] S. pyogenes Ag Ql (Unsp spec) [facility] XR chest 1V portableon 03-05 X[address] chest [address]V [address] [facility] [address] [place] [address] [place] [address] XRay Report Signed Patient: Jaleesa Arrieta MR#: [id number] [birth year] : 1990 Acct:[id number] Age/Sex: 33 / F ADM Date: 03/05/24 Loc: ER Room: Type: [facility] ER Attending Dr: Copies to: Devika De [...] Priscilla Cunningham M.D.03/05/2024 9:34 PM Dictation Location: [place] [address] Transcribed By: [facility] 03/05/242133 Dictated By: Priscilla Cunningham MD 03/05/242130 Signed By: 03/05/242133 Normal [facility] Quick Strepon 02-26-2024 Quick Strep Streptococcus pyogen es Ag [Presence] in Throat by Rapid immunoassay Negative for Group A Strep Antigen Note 1 NOTE 2 Results are those of a screening test. NOTE 3 If clinically indicated please order a culture. NOTE 4 NOTE 5 Reference range = Negative PERFORMED BY: [facility] [address] [place] [address] PATHOLOGIST CHIEF CRNA LION STANLEY M.D. Normal [facility] Comment on above: Performed By: #### Q S #### [facility] [address] Streptococcus pyogenes antig en detectionOrdered By: Ck To on 02-26-2024 S. pyogenes Ag Ql (Unsp spec) Streptococcus pyogenes antigen detection [facility] S. pyogenes Ag Ql (Unsp spec) [facility] Urinalysis macro (dipstick) panel (U)on 02-23-2024 Bilirubin, [...] Urobilinogen, UA 0.2 0.2 - 12 mg/dL [facility] ALL THYROID STIM HORMONEon 0 01-26-2024 TSH Qn 2.645 m[IU]/L [facility] Urinalysis macro (dipstick) panel (U)on 01-20-2024 Bilirubin, [...] mg/dL [facility] Leukocytes, UA Trace Negative - 500+++ Gabby/mcL [facility] Nitrite, UA Negative Negative - Positive [facility] pH, UA 6.5 5 - 9 [facility] Protein, UA Negative Negative - 1999(20) ++++ mg/dL [facility] Spec Grav, UA 1.020 1 - 1.03 [facility] Urobilinogen, UA 0.2 0.2 - 12 mg/dL [facility] Alanine aminotransferase [En zymatic activity/volume] in Serum or PlasmaOrdered By: Marychuy Kyle on 10-06-2023 ALT [Catalytic activity/Vol] 13 U/L Normal 7-52 [facility] Comment on above: Performed By: #### C BC, CMP, HCGQNT #### [facility] [address] [place] [address] [place] Albumin [Mass/volume] in Ser um or Plasma by Bromocresol green (BCG) dye binding methoOrdered By: Marychuy Jeronimoimore on 10-06-2023 Albumin BCG dye [Mass/Vol] 3.8 g/dL 3.5-5.7 [facility] Alkaline phosphatase [Enzyma tic activity/volume] in Serum or PlasmaOrdered By: Marychuy Wangore on 10-06-2023 ALP [Catalytic activity/Vol] 61 U/L Normal 34-104 [facility] Comment on above: Performed By: #### C BC, CMP, HCGQNT #### [facility] [address] [place] [address] [place] Aspartate aminotransferase [ Enzymatic activity/volume] in Serum or PlasmaOrdered By: Marychuy Bullimore on 10-06-2023 AST [Catalytic activity/Vol] 13 U/L Normal 13-39 [facility] Comment on above: Performed By: #### C BC, CMP, HCGQNT #### [address] Automated basophil %Ordered By: Marychuy Bullimore on 10-06-2023 Basophils/100 WBC (Bld) 0.6 % Normal . [facility] Comment on above: Performed By: #### C BC, CMP, HCGQNT #### [address] Automated basophil countOrde red By: Marychuy Bullimore on 10-06-2023 Basophils (Bld) [#/Vol] 0.0 10*3/uL Normal 0.0-0.2 [facility] Comment on above: Result Comment: PERF ORMED BY: [place] [address] PATHOLOGIST CHIEF CRNA LION STANLEY M.D. Performed By: #### C BC, CMP, HCGQNT #### [address] Automated blood monocyte cou ntOrdered By: Marychuy Bullimore on 10-06-2023 Monocytes (Bld) [#/Vol] 0.5 10*3/uL Normal 0.0-0.8 [facility] Comment on above: Performed By: #### C BC, CMP, HCGQNT #### [address] Automated eosinophil %Ordere d By: Marychuy Bullimore on 10-06-2023 Eosinophils/100 WBC (Bld) 0.7 % Normal . [facility] Comment on above: Performed By: #### C BC, CMP, HCGQNT #### [address] Automated eosinophil countOr dered By: Marychuy Bullimore on 10-06-2023 Eosinophils (Bld) [#/Vol] 0.1 10*3/uL Normal 0.0-0.45 [facility] Comment on above: Performed By: #### C BC, CMP, HCGQNT #### [facility] [address] Automated epithelial cells c ount in urine sediment (number/area)Ordered By: Marychuy Jeronimoimore on 10-06-2023 Epithelial cells Auto (Urine sed) [#/Area] 3-4 [HPF] 0-2 [facility] Automated monocyte %Ordered By: Marychuy Bullimore on 10-06-2023 Monocytes/100 WBC (Bld) 6.7 % Normal . [facility] Comment on above: Performed By: #### C BC, CMP, HCGQNT #### [address] Automated neutrophil %Ordere d By: Marychuy Bullimore on 10-06-2023 Neutrophils/100 WBC (Bld) 54.4 % Normal . [facility] Comment on above: Performed By: #### C BC, CMP, HCGQNT #### [facility] [address] [place] [address] Bacteria [Presence] in Urine by AutomatedOrdered By: Marychuy Kyle on 10-06-2023 Bacteria Auto Ql (U) None seen [HPF] None Seen [facility] Bilirubin Test strip Ql (U)O rdered By: Marychuy Bullimore on 10-06-2023 Bilirubin Ql (U) Negative Negative [facility] Bilirubin.total [Mass/volume ] in Serum or PlasmaOrdered By: Marychuy Bullimore on 10-06-2023 Bilirubin [Mass/Vol] 0.2 mg/dL Low 0.3-1.0 [facility] Comment on above: Performed By: #### C BC, CMP, HCGQNT #### [facility] [address] [place] [address] Calcium [Mass/volume] in Ser um or PlasmaOrdered By: Marychuy Bullimore on 10-06-2023 Calcium [Mass/Vol] 9.4 mg/dL Normal 8.6-10.3 [facility] Comment on above: Performed By: #### C BC, CMP, HCGQNT #### [facility] [address] [place] [address] [place] Carbon dioxide, total [Moles /volume] in Serum or PlasmaOrdered By: Marychuy Bullimore on 10-06-2023 CO2 [Moles/Vol] 25.5 mmol/L Normal 21.0-31.[address] [facility] Comment on above: Performed By: #### C BC, CMP, HCGQNT #### [facility] [address] [place] [address] [place] Chloride [Moles/volume] in S sondra or PlasmaOrdered By: Marychuy Bullimore on 10-06-2023 Chloride [Moles/Vol] 105 mmol/L Normal 98-107 [facility] Comment on above: Performed By: #### C BC, CMP, HCGQNT #### [facility] [address] Choriogonadotropin.beta subu nit [Units/volume] in Serum or PlasmaOrdered By: Marychuy Bullimore on 10-06-2023 HCG.beta subunit Qn 2799.00 m[IU]/mL [facility] Comment on above: Approximate Approxim ate hCG Gestational Age Range (mIU/ml) (weeks)0.2-1 5-50 1-2 50-500 2-3 100-5,000 3-4 500-10,000 4-5 1,000-50,000 5-6 10,000-100,000 6-8 15,000-200,000 8-12 10,000-100,000 Color of Urine by AutoOrdere d By: Marychuy Kyle on 10-06-2023 Color (U) Yellow Normal Yellow [facility] Comment on above: Order Comment: NEED MORE SPECIMEN Name Collection Type:: Clean-Voided Midstream Performed By: #### A DDONUAPLUS #### [facility] [address] Complete Blood Count Auto Di ffon 10-06-2023 Mean Corpuscular HGB Conc 34.4 g/dL Normal 32.0-35.0 [facility] Comment on above: Performed By: #### C BC, CMP, HCGQNT #### [address] Monocytes/100 WBC (Bld) 17.37 % Normal 0.00-20.00 [facility] Comment on above: Performed By: #### C BC, CMP, HCGQNT #### [facility] [address] NRBC% 0.2 /100{WBC} Normal 0-0.5 [facility] Comment on above: Performed By: #### C BC, CMP, HCGQNT #### [address] Comprehensive Metabolic Pane panchito 10-06-2023 Albumin [Mass/Vol] 3.8 g/dL Normal 3.5-5.7 [facility] Comment on above: Performed By: #### C BC, CMP, HCGQNT #### [address] Creatinine Clr Calc Pharmacy 180.48 Normal [facility] Comment on above: Performed By: #### C BC, CMP, HCGQNT #### [address] GFR/1.73 sq M.predicted MDRD (S/P/Bld) [Vol rate/Area] mL/min/{1.73_m2} Normal [facility] Comment on above: Performed By: #### C BC, CMP, HCGQNT #### [address] Creatinine [Mass/volume] in Serum or PlasmaOrdered By: Marychuy Kyle on 10-06-2023 Creatinine [Mass/Vol] 0.63 mg/dL Normal 0.60-1.20 [facility] Comment on above: Performed By: #### C BC, CMP, HCGQNT #### [address] Dipstick and Microscopicon 0 10-06-2023 Appearance (U) Clear Normal Clear [facility] Comment on above: Order Comment: NEED MORE SPECIMEN Name Collection Type:: Clean-Voided Midstream Performed By: #### A DDONUAPLUS #### [address] Bacteria,Urine None Seen Normal None Seen [facility] Comment on above: Order Comment: NEED MORE SPECIMEN Name Collection Type:: Clean-Voided Midstream Performed By: #### A DDONUAPLUS #### [address] Bilirubin,Urine Negative Normal Negative [facility] Comment on above: Order Comment: NEED MORE SPECIMEN Name Collection Type:: Clean-Voided Midstream Performed By: #### A DDONUAPLUS #### [address] Glucose Ql (U) Normal Normal Normal [facility] Comment on above: Order Comment: NEED MORE SPECIMEN Name Collection Type:: Clean-Voided Midstream Performed By: #### A DDONUAPLUS #### [address] Hyaline Casts,Urine 0-8 Normal 0-8 [facility] [facility] Comment on above: Order Comment: NEED MORE SPECIMEN Name Collection Type:: Clean-Voided Midstream Result Comment: PERF ORMED BY: [place] [address] PATHOLOGIST CHIEF CRNA LION STANLEY M.D. Performed By: #### A DDONUAPLUS #### [address] Ketones Ql (U) Negative Normal Negative [facility] Comment on above: Order Comment: NEED MORE SPECIMEN Name Collection Type:: Clean-Voided Midstream Performed By: #### A DDONUAPLUS #### [address] Leukocyte esterase Test strip Ql (U) 1+ High Negative [facility] Comment on above: Order Comment: NEED MORE SPECIMEN Name Collection Type:: Clean-Voided Midstream Performed By: #### A DDONUAPLUS #### [address] [place] [address] [place] Nitrite,Urine Negative Normal Negative [facility] Comment on above: Order Comment: NEED MORE SPECIMEN Name Collection Type:: Clean-Voided Midstream Performed By: #### A DDONUAPLUS #### [address] Occult Blood,Urine Negative Normal Negative [facility] Comment on above: Order Comment: NEED MORE SPECIMEN Name Collection Type:: Clean-Voided Midstream Result Comment: PERF ORMED BY: [place] [address] PATHOLOGIST CHIEF CRNA LION STANLEY M.D. Performed By: #### A DDONUAPLUS #### [place] [address] [place] Protein,Urine Negative Normal Negative [facility] Comment on above: Order Comment: NEED MORE SPECIMEN Name Collection Type:: Clean-Voided Midstream Performed By: #### A DDONUAPLUS #### [place] [address] [place] RBC LM.HPF (Urine sed) [#/Area] 0 /[HPF] Normal 0-4 [facility] Comment on above: Order Comment: NEED MORE SPECIMEN Name Collection Type:: Clean-Voided Midstream Performed By: #### A DDONUAPLUS #### [place] [address] [place] Specificy [place],Urine 1.017 Normal 1.001-1.030 [facility] Comment on above: Order Comment: NEED MORE SPECIMEN Name Collection Type:: Clean-Voided Midstream Performed By: #### A DDONUAPLUS #### [place] [address] [place] Squamous Epithelial Cell,Urine 3-4 High 0-2 [facility] Comment on above: Order Comment: NEED MORE SPECIMEN Name Collection Type:: Clean-Voided Midstream Performed By: #### A DDONUAPLUS #### [place] [address] [place] Urobilinogen,Urine Normal Normal Normal [facility] Comment on above: Order Comment: NEED MORE SPECIMEN Name Collection Type:: Clean-Voided Midstream Performed By: #### A DDONUAPLUS #### [address] WBC,Urine 3-4 Normal 0-4 [facility] Comment on above: Order Comment: NEED MORE SPECIMEN Name Collection Type:: Clean-Voided Midstream Performed By: #### A DDONUAPLUS #### [address] Erythrocyte distribution wid th [Ratio] by Automated countOrdered By: Marychuy Kyle on 10-06-2023 Erythrocyte distribution width (RBC) [Ratio] 13.4 % Normal 11.9-15.3 [facility] Comment on above: Performed By: #### C BC, CMP, HCGQNT #### [address] Erythrocytes [#/area] in Uri ne sediment by Automated countOrdered By: Marychuy Wangore on 10-06-2023 RBC Auto (Urine sed) [#/Area] 0-1 [HPF] 0-4 [facility] Erythrocytes [#/volume] in B lood by Automated countOrdered By: Marychuy Wangore on 10-06-2023 RBC (Bld) [#/Vol] 4.08 10*6/uL Normal 3.60-5.00 [facility] Comment on above: Performed By: #### C BC, CMP, HCGQNT #### [address] Glucose [Mass/volume] in Ser um or PlasmaOrdered By: Marychuy Jeronimoimdianne on 10-06-2023 Glucose [Mass/Vol] 100 mg/dL Normal 70-100 [facility] Comment on above: ADA recommended refe rence rangeRandom Glucose Reference Range is dependent on time and content of last meal. Glucose of more than 200 mg/dL in a nonstressed, ambulatory subject supports the diagnosis of Diabetes Mellitus. Result Comment: [place] om Glucose Reference Range is dependent on time and content of last meal. Glucose of more than 200 mg/dL in a nonstressed, ambulatory subject supports the diagnosis of Diabetes Mellitus. ADA recommended reference range Performed By: #### C BC, CMP, HCGQNT #### [address] HCG,Quantitativeon HCG,Quantitative 2799.00 m[iU]/mL Normal [facility] Comment on above: Result Comment: Appr oximate Approximate hCG Gestational Age Range (mIU/ml) (weeks) 0.2-1 5-50 1-2 50-500 2-3 100-5,000 3-4 500-10,000 4-5 1,000-50,000 5-6 10,000-100,000 6-8 15,000-200,000 8-12 10,000-100,000 PERFORMED BY: [place] [address] PATHOLOGIST CHIEF CRNA LION STANLEY M.D. Performed By: #### C BC, CMP, HCGQNT #### [address] Hematocrit [Volume Fraction] of Blood by Automated countOrdered By: Marychuy Kyle on 10-06-2023 Hematocrit (Bld) [Volume fraction] 36.7 % Normal 34.0-46.4 [facility] Comment on above: Performed By: #### C BC, CMP, HCGQNT #### [address] Hemoglobin [Mass/volume] in BloodOrdered By: Marychuy Kyle on 10-06-2023 Hemoglobin (Bld) [Mass/Vol] 12.6 g/dL Normal 11.8-15.4 [facility] Comment on above: Performed By: #### C BC, CMP, HCGQNT #### [address] Ketones Auto test strip (U) [Mass/Vol]Ordered By: Marychuy Kyle on 10-06-2023 Ketones (U) [Mass/Vol] Negative Negative [facility] Laboratory - UrinalysisOrder ed By: Marychuy Kyle on 10-06-2023 Hyaline casts LM Ql (Urine sed) 0-8 [LPF] 0-8 [facility] Leukocytes [#/area] in Urine sediment by Automated countOrdered By: Marychuy Kyle on 10-06-2023 WBC Auto (Urine sed) [#/Area] 3-4 [HPF] 0-4 [facility] Leukocytes [#/volume] correc inocencia for nucleated erythrocytes in Blood by Automated counOrdered By: Marychuy Wangore on 10-06-2023 WBC corrected for nucl RBC Auto (Bld) [#/Vol] 7.4 10*3/uL 3.8-11.6 [facility] Leukocytes [#/volume] in Blo od by Automated countOrdered By: Marychuy Kyle on 10-06-2023 WBC (Bld) [#/Vol] 7.4 10*3/uL Normal 3.8-11.6 [facility] Comment on above: Performed By: #### C BC, CMP, HCGQNT #### [facility] [address] [place] [address] [place] Lymphocytes [#/volume] in Bl ood by Automated countOrdered By: Marychuy Kyle on 10-06-2023 Lymphocytes (Bld) [#/Vol] 2.8 10*3/uL Normal 1.00-4.8 [facility] Comment on above: Performed By: #### C BC, CMP, HCGQNT #### [facility] [address] [place] [address] [place] Lymphocytes/100 leukocytes i n Blood by Automated countOrdered By: Marychuy Kyle on 10-06-2023 Lymphocytes/100 WBC (Bld) 37.6 % Normal . [facility] Comment on above: Performed By: #### C BC, CMP, HCGQNT #### [facility] [address] [place] [address] [place] MCH [Entitic mass] by Automa inocencia countOrdered By: Marychuy Kyle on 10-06-2023 MCH (RBC) [Entitic mass] 31.0 pg Normal 24.7-34.3 [facility] Comment on above: Performed By: #### C BC, CMP, HCGQNT #### [facility] [address] [place] [address] MCHC Auto (RBC) [Mass/Vol]Or dered By: Marychuy Jeronimoimore on 10-06-2023 MCHC (RBC) [Mass/Vol] 34.4 g/dL 32.0-35.0 [facility] MCV [Entitic volume] by Auto mated countOrdered By: Marychuy Kyle on 10-06-2023 MCV (RBC) [Entitic vol] 90.1 fL Normal 80-100 [facility] Comment on above: Performed By: #### C BC, CMP, HCGQNT #### [facility] [address] [place] [address] Monocyte distribution width [Entitic volume] in Blood by AutomatedOrdered By: Marychuy Kyle on 10-06-2023 Monocyte distribution width Auto (Bld) [Entitic vol] 17.37 % 0.00-20.00 [facility] Neutrophils [#/volume] in Bl ood by Automated countOrdered By: Marychuy Kyle on 10-06-2023 Neutrophils (Bld) [#/Vol] 4.0 10*3/uL Normal 1.8-7.7 [facility] Comment on above: Performed By: #### C BC, CMP, HCGQNT #### [facility] [address] [place] [address] Nitrite Test strip Ql (U)Ord ered By: Marychuy Kyle on 10-06-2023 Nitrite Ql (U) Negative Negative [facility] No Panel InformationOrdered By: Marychuy Kyle on 10-06-2023 Estimated GFR (CKD-EPI) > 60.0 mL/Min [facility] Creatinine Clearance (Chem 180.48 [facility] Nucleated erythrocytes [Pres ence] in Blood by Automated countOrdered By: Marychuy Kyle on 10-06-2023 Nucleated RBC Auto Ql (Bld) 0.2 /100{WBC} 0-0.5 [facility] Platelet mean volume [Entiti c volume] in Blood by Automated countOrdered By: Marychuy Kyle on 10-06-2023 Platelet mean volume (Bld) [Entitic vol] 7.5 fL Normal 6.3-10.7 [facility] Comment on above: Performed By: #### C BC, CMP, HCGQNT #### [address] Platelets [#/volume] in Bloo d by Automated countOrdered By: Marychuy Bullimore on 10-06-2023 Platelets (Bld) [#/Vol] 367 10*3/uL Normal 150-450 [facility] Comment on above: Performed By: #### C BC, CMP, HCGQNT #### [address] Potassium [Moles/volume] in Serum or PlasmaOrdered By: Marychuy Bullimore on 10-06-2023 Potassium [Moles/Vol] 4.1 mmol/L Normal 3.5-5.1 [facility] Comment on above: Performed By: #### C BC, CMP, HCGQNT #### [address] Protein Auto test strip (U) [Mass/Vol]Ordered By: Marychuy Bullimore on 10-06-2023 Protein (U) [Mass/Vol] Negative Negative [facility] Protein [Mass/volume] in Ser um or PlasmaOrdered By: Marychuy Bullimore on 10-06-2023 Protein [Mass/Vol] 7.4 g/dL Normal 6.4-8.9 [facility] Comment on above: Performed By: #### C BC, CMP, HCGQNT #### [address] Serum globulin measurement b y calculation (mass/volume)Ordered By: Marychuy Bullimore on 10-06-2023 Globulin (S) [Mass/Vol] 3.6 g/dL Normal [facility] Comment on above: Performed By: #### C BC, CMP, HCGQNT #### [address] Serum or plasma albumin/glob ulin mass ratioOrdered By: Marychuy Bullimore on 10-06-2023 Albumin/Globulin [Mass ratio] 1.1 {ratio} Normal [facility] Comment on above: Performed By: #### C JOSELYN WRIGHT, HCGQNT #### [address] Serum or plasma anion gap de terminationOrdered By: Marychuy Wangore on 10-06-2023 Anion gap [Moles/Vol] 12.6 mmol/L Normal 6.0-15.0 [facility] Comment on above: Performed By: #### C BC, CMP, HCGQNT #### [address] Sodium [Moles/volume] in Ser um or PlasmaOrdered By: Marychuy Jeronimoimore on 10-06-2023 Sodium [Moles/Vol] 139 mmol/L Normal 136-145 [facility] Comment on above: Performed By: #### C ADRIANA, CMP, HCGQNT #### [address] Specific gravity Auto test s trip (U) [Rel density]Ordered By: Marychuymargaux Kyle on 10-06-2023 Specific gravity (U) [Rel density] 1.017 1.001-1.030 [facility] Urea nitrogen [Mass/volume] in Serum or PlasmaOrdered By: Marychuy Kyle on 10-06-2023 Urea nitrogen [Mass/Vol] 7 mg/dL Normal 7-25 [facility] Comment on above: Performed By: #### C BC, CMP, HCGQNT #### [address] Urine clarity by refractomet ry automatedOrdered By: Marychuy Kyle on 10-06-2023 Clarity Refractometry automated (U) Clear Clear [facility] Urine glucose measurement by automated test strip (mass/volume)Ordered By: Marychuy Kyle on 10-06-2023 Glucose Auto test strip (U) [Mass/Vol] Normal mg/dL Normal [facility] Urine hemoglobin detection b y automated test stripOrdered By: Marychuy Kyle on 10-06-2023 Hemoglobin Auto test strip Ql (U) Negative Negative [facility] Urine leukocyte esterase det ection by automated test stripOrdered By: Marychuy Kyle on 10-06-2023 Leukocyte esterase Auto test strip Ql (U) 1+ Negative [facility] Urine pH measurement by auto mated test stripOrdered By: Marychuy Kyle on 10-06-2023 pH (U) 7.0 [pH] Normal 5.0-9.0 [facility] Comment on above: Order Comment: NEED MORE SPECIMEN Name Collection Type:: Clean-Voided Midstream Performed By: #### A DDONUAPLUS #### [address] Urobilinogen Auto test strip (U) [Mass/Vol]Ordered By: Marychuy Kyle on 10-06-2023 Urobilinogen (U) [Mass/Vol] Normal mg/dL Normal [facility] Basia 09-11-2023 LIZ Telephone (MARTIN) -------- MERTJALEESA N ([id number]) 1990 F Date Time Provider Department 09/11/23 TONYA SENIOR During your visit today, we recorded the following information about you: Tonay Senior APRN.CNP 09/11/2023 11:19 AM Signed Attempted [...] office back to schedule an appointment with nAna on or around 10/17/2023 for a VV. Please assist with scheduling once patient calls back. Thanks Meme Crowe 09/29/2023 8:37 AM Signed 2nd attempt. Called patient and LVM to call our office back to schedule. Thanks Meme Castrejon Allergies As of Date: 09/11/2023 (Not on File) Date Reviewed: 08/20/2023 Reviewed by: Tonya Senior APRN.PARKING [employer]INTER - Fully Assessed Reason for Visit: Results [...] Encounter Status:Closed by TONYA SENIOR on 09/23/23 [facility] NICOTINE AND METAB, URon URIN ANABASINE QUANT <5 Normal [facility] Comment on above: Order Comment: Speci men Type: URINE SPECIMEN Ordering Facility: [facility] Address: [address] [place] [address] Performed By: #### U NICOT #### [facility] CLIA [id number] [address] [place] [address] URIN COTININE QUANT <15 Normal [facility] Comment on above: Order Comment: Speci men Type: URINE SPECIMEN Ordering Facility: [facility] Address: [address] [place] [address] Performed By: #### U NICOT #### [facility] CLIA [id number] [address] [place] [id number] URIN NICOTINE QUANT <15 Normal [facility] Comment on above: Order Comment: Speci men Type: URINE SPECIMEN Ordering Facility: [facility] Address: [address] [place] [address] Result Comment: INTE RPRETIVE INFORMATION: Nicotine and Metabolites, Urine, Quantitative Methodology: Quantitative Liquid Chromatography-Tandem Mass Spectrometry Positive cutoff: Nicotine 15 ng/mL Cotinine 15 ng/mL 4-GO-Vgeshwyz 50 ng/mL Anabasine 5 ng/mL For medical [...] developed and its performance characteristics determined by [facility]. It has not been cleared or approved by the [place] Food and Drug Administration. This test was performed in a CLIA certified laboratory and is intended for clinical purposes. Performed By: [facility] [address] [place] [address] [employer]: Rex Zuleta MD, PhD CLIA Number: [id number] Performed By: #### U NICOT #### [facility] CLIA [id number] [address] [place] [address] URINE 3 [place] COTININE <50 Normal [facility] Comment on above: Order Comment: Speci men Type: URINE SPECIMEN Ordering Facility: [facility] Address: [address] [place] [address] Performed By: #### U NICOT #### [facility] CLIA [id number] [address] [place] [address] TOXICOLOGY SCREEN, ROUTINE U RINEon 09-08-2023 Amphetamines Confirm (U) [Mass/Vol] Negative Normal Negative [facility] Comment on above: Order Comment: Speci men Type: URINE SPECIMEN Ordering Facility: [facility] Address: [address] [place] [address] Result Comment: Cuto ff threshold at 1000 ng/mL. Performed By: #### U TOX2 #### [facility] CLIA [id number] [address] [place] [address] [place] BARBITURATES, URINE Negative Normal Negative [facility] Comment on above: Order Comment: Speci men Type: URINE SPECIMEN Ordering Facility: [facility] Address: [address] [place] [address] Result Comment: Cuto ff threshold at 200 ng/mL. Performed By: #### U TOX2 #### [facility] CLIA [id number] [address] [place] [address] [place] BENZODIAZEPINES, UR Negative Normal Negative [facility] Comment on above: Order Comment: Speci men Type: URINE SPECIMEN Ordering Facility: [facility] Address: [address] [place] [address] Result Comment: Cuto ff threshold at 200 ng/mL. Performed By: #### U TOX2 #### [facility] CLIA [id number] [address] [place] [address] [place] Cannabinoids Screen Ql (U) Negative Normal Negative [facility] Comment on above: Order Comment: Speci men Type: URINE SPECIMEN Ordering Facility: [facility] Address: [address], [place] [address] Result Comment: Cuto ff threshold at 50 ng/mL. Performed By: #### U TOX2 #### [facility] CLIA [id number] [address] [place] [address] [place] Cocaine Ql (U) Negative Normal Negative [facility] Comment on above: Order Comment: Speci men Type: URINE SPECIMEN Ordering Facility: [facility] Address: [address] [place] [address] Result Comment: Cuto ff threshold at 300 ng/mL. Performed By: #### U TOX2 #### [facility] CLIA [id number] [address] [place] [address] [place] Ethanol (U) [Mass/Vol] <11 Normal <11 [facility] Comment on above: Order Comment: Speci men Type: URINE SPECIMEN Ordering Facility: [facility] Address: [address] [place] [address] Performed By: #### U TOX2 #### [facility] CLIA [id number] [address] [place] [address] [place] Opiates Screen Ql (U) Negative Normal Negative [facility] Comment on above: Order Comment: Speci men Type: URINE SPECIMEN Ordering Facility: [facility] Address: [address] [place] [address] Result Comment: Cuto ff threshold at 300 ng/mL. Performed By: #### U TOX2 #### [facility] CLIA [id number] [address] [place] [address] [place] oxyCODONE cutoff Screen (U) [Mass/Vol] Negative Normal Negative [facility] Comment on above: Order Comment: Speci men Type: URINE SPECIMEN Ordering Facility: [facility] Address: [address] [place] [address] Result Comment: Cuto ff threshold at 100 ng/mL. Performed By: #### U TOX2 #### [facility] CLIA [id number] [address] [place] [address] [place] Phencyclidine Ql (U) Negative Normal Negative [facility] Comment on above: Order Comment: Speci men Type: URINE SPECIMEN Ordering Facility: [facility] Address: [address] [place] [address] Result Comment: Cuto ff threshold at 25 ng/mL. Performed By: #### U TOX2 #### [facility] CLIA [id number] [address] [place] [address] [place] 25(OH)D3 SerPl-mCncon 2023 25-hydroxyvitamin D3 [Mass/Vol] 11.9 ng/mL Low 31.0-80.0 [facility] Comment on above: Order Comment: Speci men Type: BLOOD SPECIMEN Ordering Facility: [facility] Address: [address] [place] [address] Performed By: #### 2 276-4, 2132-01, 2283-12 #### [facility] CLIA [id number] [address] [place] [address] [place] CBC W Auto Differential pane l (Bld)on 09-05-2023 Basophils (Bld) [#/Vol] 10*3/uL Normal <0.11 [facility] Comment on above: Order Comment: Speci men Type: BLOOD SPECIMEN Ordering Facility: [facility] Address: [address] [place] [address] Performed By: #### 2 276-4, 2132-01, 2283-12 #### [facility] CLIA [id number] [address] [place] [address] [place] Basophils/100 WBC (Bld) 0.3 % Normal [facility] Comment on above: Order Comment: Speci men Type: BLOOD SPECIMEN Ordering Facility: [facility] Address: [address] [place] [address] Performed By: #### 2 276-4, 2132-01, 2283-12 #### [facility] CLIA [id number] [address] [place] [address] [place] Differential cell count method Nom (Bld) Auto Normal [facility] Comment on above: Order Comment: Speci men Type: BLOOD SPECIMEN Ordering Facility: [facility] Address: [address] [place] [address] Performed By: #### 2 276-4, 2132-01, 2283-12 #### [facility] CLIA [id number] [address] [place] [address] [place] Eosinophils (Bld) [#/Vol] 0.09 10*3/uL Normal <0.46 [facility] Comment on above: Order Comment: Speci men Type: BLOOD SPECIMEN Ordering Facility: [facility] Address: [address] [place] [address] Performed By: #### 2 276-4, 2132-01, 2283-12 #### [facility] CLIA [id number] [address] [place] [address] [place] Eosinophils/100 WBC (Bld) 1.3 % Normal [facility] Comment on above: Order Comment: Speci men Type: BLOOD SPECIMEN Ordering Facility: [facility] Address: [address] [place] [address] Performed By: #### 2 276-4, 2132-01, 2283-12 #### [facility] CLIA [id number] [address] [place] [address] [place] Erythrocyte distribution width (RBC) [Ratio] 12.6 % Normal 11.5-15.0 [facility] Comment on above: Order Comment: Speci men Type: BLOOD SPECIMEN Ordering Facility: [facility] Address: [address] [place] [address] Performed By: #### 2 276-4, 2132-01, 2283-12 #### [facility] CLIA [id number] [address] [place] [address] [place] Hematocrit (Bld) [Volume fraction] 38.0 % Normal 36.0-46.0 [facility] Comment on above: Order Comment: Speci men Type: BLOOD SPECIMEN Ordering Facility: [facility] Address: [address] [place] [address] Performed By: #### 2 276-4, 2132-01, 2283-12 #### [facility] CLIA [id number] [address] [place] [address] [place] Hemoglobin (Bld) [Mass/Vol] 12.8 g/dL Normal 11.5-15.5 [facility] Comment on above: Order Comment: Speci men Type: BLOOD SPECIMEN Ordering Facility: [facility] Address: [address] [place] [address] Performed By: #### 2 276-4, 2132-01, 2283-12 #### [facility] CLIA [id number] [address] [place] [address] [place] Immature granulocytes (Bld) [#/Vol] 10*3/uL Normal <0.10 [facility] Comment on above: Order Comment: Speci men Type: BLOOD SPECIMEN Ordering Facility: [facility] Address: [address] [place] [address] Performed By: #### 2 276-4, 2132-01, 2283-12 #### [facility] CLIA [id number] [address] [place] [address] [place] Immature granulocytes/100 WBC (Bld) 0.1 % Normal [facility] Comment on above: Order Comment: Speci men Type: BLOOD SPECIMEN Ordering Facility: [facility] Address: [address] [place] [address] Performed By: #### 2 276-4, 2132-01, 2283-12 #### [facility] CLIA [id number] [address] [place], [place] [id number] [place] Lymphocytes (Bld) [#/Vol] 3.49 10*3/uL Normal 1.00-4.00 [facility] Comment on above: Order Comment: Speci men Type: BLOOD SPECIMEN Ordering Facility: [facility] Address: [address] [place] [address] Performed By: #### 2 276-4, 2132-01, 2283-12 #### [facility] CLIA [id number] [address] [place] [address] [place] Lymphocytes/100 WBC (Bld) 48.6 % Normal [facility] Comment on above: Order Comment: Speci men Type: BLOOD SPECIMEN Ordering Facility: [facility] Address: [address] [place] [address] Performed By: #### 2 276-4, 2132-01, 2283-12 #### [facility] CLIA [id number] [address] [place] [address] [place] MCH (RBC) [Entitic mass] 30.0 pg Normal 26.0-34.0 [facility] Comment on above: Order Comment: Speci men Type: BLOOD SPECIMEN Ordering Facility: [facility] Address: [address] [place] [address] Performed By: #### 2 276-4, 2132-01, 2283-12 #### [facility] CLIA [id number] [address] [place] [address] [place] MCHC (RBC) [Mass/Vol] 33.7 g/dL Normal 30.5-36.0 [facility] Comment on above: Order Comment: Speci men Type: BLOOD SPECIMEN Ordering Facility: [facility] Address: [address] [place] [address] Performed By: #### 2 276-4, 2132-01, 2283-12 #### [facility] CLIA [id number] [address] [place] [address] [place] MCV (RBC) [Entitic vol] 89.2 fL Normal 80.0-100.0 [facility] Comment on above: Order Comment: Speci men Type: BLOOD SPECIMEN Ordering Facility: [facility] Address: [address] [place] [address] Performed By: #### 2 276-4, 2132-01, 2283-12 #### [facility] CLIA [id number] [address] [place] [address] [place] Monocytes (Bld) [#/Vol] 0.48 10*3/uL Normal <0.87 [facility] Comment on above: Order Comment: Speci men Type: BLOOD SPECIMEN Ordering Facility: [facility] Address: [address] [place] [address] Performed By: #### 2 276-4, 2132-01, 2283-12 #### [facility] CLIA [id number] [address] [place] [address] [place] Monocytes/100 WBC (Bld) 6.7 % Normal [facility] Comment on above: Order Comment: Speci men Type: BLOOD SPECIMEN Ordering Facility: [facility] Address: [address] [place] [address] Performed By: #### 2 276-4, 2132-01, 2283-12 #### [facility] CLIA [id number] [address] [place] [address] [place] Neutrophils (Bld) [#/Vol] 3.09 10*3/uL Normal 1.45-7.50 [facility] Comment on above: Order Comment: Speci men Type: BLOOD SPECIMEN Ordering Facility: [facility] Address: [address] [place] [address] Performed By: #### 2 276-4, 2132-01, 2283-12 #### [facility] CLIA [id number] [address] [place] [address] [place] Neutrophils/100 WBC (Bld) 43.0 % Normal [facility] Comment on above: Order Comment: Speci men Type: BLOOD SPECIMEN Ordering Facility: [facility] Address: [address] [place] [address] Performed By: #### 2 276-4, 2132-01, 2283-12 #### [facility] CLIA [id number] [address] [place] [address] [place] Nucleated RBC (Bld) [#/Vol] 10*3/uL Normal <0.01 [facility] Comment on above: Order Comment: Speci men Type: BLOOD SPECIMEN Ordering Facility: [facility] Address: [address] [place] [address] Performed By: #### 2 276-4, 2132-01, 2283-12 #### [facility] CLIA [id number] [address] [place] [address] [place] Nucleated RBC/100 WBC (Bld) [Ratio] 0.0 /100 WBC Normal [facility] Comment on above: Order Comment: Speci men Type: BLOOD SPECIMEN Ordering Facility: [facility] Address: [address] [place] [address] Performed By: #### 2 276-4, 2132-01, 2283-12 #### [facility] CLIA [id number] [address] [place] [address] [place] Platelet mean volume (Bld) [Entitic vol] 9.2 fL Normal 9.0-12.7 [facility] Comment on above: Order Comment: Speci men Type: BLOOD SPECIMEN Ordering Facility: [facility] Address: [address] [place] [address] Performed By: #### 2 276-4, 2132-01, 2283-12 #### [facility] CLIA [id number] [address] [place] [address] [place] Platelets (Bld) [#/Vol] 361 10*3/uL Normal 150-400 [facility] Comment on above: Order Comment: Speci men Type: BLOOD SPECIMEN Ordering Facility: [facility] Address: [address] [place] [address] Performed By: #### 2 276-4, 9, 8 #### [facility] CLIA [id number] [address] [place] [address] [place] RBC (Bld) [#/Vol] 4.26 10*6/uL Normal 3.90-5.20 [facility] Comment on above: Order Comment: Speci men Type: BLOOD SPECIMEN Ordering Facility: [facility] Address: [address] [place] [address] Performed By: #### 2 276-4, 9, 8 #### [facility] CLIA [id number] [address] [place] [address] [place] WBC (Bld) [#/Vol] 7.18 10*3/uL Normal 3.70-11.00 [facility] Comment on above: Order Comment: Speci men Type: BLOOD SPECIMEN Ordering Facility: [facility] Address: [address] [place] [address] Performed By: #### 2 276-4, 9, 2283-12 #### [facility] CLIA [id number] [address] [place] [address] [place] Comprehensive metabolic 2000 panelon 09-05-2023 Albumin [Mass/Vol] 4.0 g/dL Normal 3.9-4.9 [facility] Comment on above: Order Comment: Speci men Type: BLOOD SPECIMEN Ordering Facility: [facility] Address: [address] [place] [address] Performed By: #### 2 4323-8 #### [facility] CLIA [id number] [address] [place] [address] ALP [Catalytic activity/Vol] 91 U/L Normal 34-123 [facility] Comment on above: Order Comment: Speci men Type: BLOOD SPECIMEN Ordering Facility: [facility] Address: [address] [place] [address] Performed By: #### 2 4323-8 #### [facility] CLIA [id number] [address] [place] [address] ALT [Catalytic activity/Vol] 15 U/L Normal 7-38 [facility] Comment on above: Order Comment: Speci men Type: BLOOD SPECIMEN Ordering Facility: [facility] Address: [address] [place] [id number] Performed By: #### 2 4323-8 #### [facility] CLIA [id number] [address] [place] [address] Anion gap [Moles/Vol] 10 mmol/L Normal 9-18 [facility] Comment on above: Order Comment: Speci men Type: BLOOD SPECIMEN Ordering Facility: [facility] Address: [address] [place] [address] Performed By: #### 2 4323-8 #### [facility] CLIA [id number] [address] [place] [address] AST [Catalytic activity/Vol] 13 U/L Normal 13-35 [facility] Comment on above: Order Comment: Speci men Type: BLOOD SPECIMEN Ordering Facility: [facility] Address: [address] [place], [place] [address] Performed By: #### 2 4323-8 #### [facility] CLIA [id number] [address] [place] [address] Bilirubin [Mass/Vol] 0.3 mg/dL Normal 0.2-1.3 [facility] Comment on above: Order Comment: Speci men Type: BLOOD SPECIMEN Ordering Facility: [facility] Address: [address] [place] [address] Performed By: #### 2 4323-8 #### [facility] CLIA [id number] [address] [place] [address] Calcium [Mass/Vol] 9.5 mg/dL Normal 8.5-10.2 [facility] Comment on above: Order Comment: Speci men Type: BLOOD SPECIMEN Ordering Facility: [facility] Address: [address] [place] [address] Performed By: #### 2 4323-8 #### [facility] CLIA [id number] [address] [place] [address] Chloride [Moles/Vol] 106 mmol/L High 97-105 [facility] Comment on above: Order Comment: Speci men Type: BLOOD SPECIMEN Ordering Facility: [facility] Address: [address] [place] [address] Performed By: #### 2 4323-8 #### [facility] CLIA [id number] [address] [place] [address] CO2 [Moles/Vol] 26 mmol/L Normal 22-30 [facility] Comment on above: Order Comment: Speci men Type: BLOOD SPECIMEN Ordering Facility: [facility] Address: [address] [place] [address] Performed By: #### 2 4323-8 #### [facility] CLIA [id number] [address] [place] [address] Creatinine [Mass/Vol] 0.75 mg/dL Normal 0.58-0.96 [facility] Comment on above: Order Comment: Speci men Type: BLOOD SPECIMEN Ordering Facility: [facility] Address: [address] [place] [address] Performed By: #### 2 4323-8 #### [facility] CLIA [id number] [address] [place] [address] Creatinine and Glomerular filtration rate.predicted panel (S/P/Bld) 109 mL/min/1.73m??? Normal >=60 [facility] Comment on above: Order Comment: Speci men Type: BLOOD SPECIMEN Ordering Facility: [facility] Address: [address] [place] [address] Result Comment: Stephani mated Glomerular Filtration Rate [...] GFR. Performed By: #### 2 4323-8 #### [facility] CLIA [id number] [address] [place] [address] Glucose [Mass/Vol] 104 mg/dL High 74-99 [facility] Comment on above: Order Comment: Speci augustine Type: BLOOD SPECIMEN Ordering Facility: [facility] Address: [address] [place] [address] Result Comment: The [place] Diabetes Association (ADA) provides guidance for cutoff [...] Standards of Medical Care in Diabetes 2016, [place] [employer] Association. Diabetes Care. 2016.39(Suppl 1). Performed By: #### 2 4323-8 #### [facility] CLIA [id number] [address] [place] [address] Potassium [Moles/Vol] 4.2 mmol/L Normal 3.7-5.1 [facility] Comment on above: Order Comment: Laury bradshaw Type: BLOOD SPECIMEN Ordering Facility: [facility] Address: [address] [place] [address] Performed By: #### 2 4323-8 #### [facility] CLIA [id number] [address] [place] [address] Protein [Mass/Vol] 7.4 g/dL Normal 6.3-8.0 [facility] Comment on above: Order Comment: Laury bradshaw Type: BLOOD SPECIMEN Ordering Facility: [facility] Address: [address] [place] [address] Performed By: #### 2 4323-8 #### [facility] CLIA [id number] [address] [place] [address] Sodium [Moles/Vol] 142 mmol/L Normal 136-144 [facility] Comment on above: Order Comment: Speci men Type: BLOOD SPECIMEN Ordering Facility: [facility] Address: [address] [place] [address] Performed By: #### 2 4323-8 #### [facility] CLIA [id number] [address] [place] [address] Urea nitrogen [Mass/Vol] 12 mg/dL Normal 7-21 [facility] Comment on above: Order Comment: Speci men Type: BLOOD SPECIMEN Ordering Facility: [facility] Address: [address] [place] [address] Performed By: #### 2 4323-8 #### [facility] CLIA [id number] [address] [place] [address] Ferritin SerPl-mCncon 2023 Ferritin [Mass/Vol] 86.7 ng/mL Normal 14.7-205.1 [facility] Comment on above: Order Comment: Speci men Type: BLOOD SPECIMEN Ordering Facility: [facility] Address: [address] [place] [address] Performed By: #### 2 276-4, 9, 8 #### [facility] CLIA [id number] [address] [place] [address] [place] Folate SerPl-mCncon 09-05-19 Folate [Mass/Vol] 12.0 ng/mL Normal >4.7 [facility] Comment on above: Order Comment: Speci men Type: BLOOD SPECIMEN Ordering Facility: [facility] Address: [address] [place] [address] Performed By: #### 2 276-4, 9, 8 #### [facility] CLIA [id number] [address] [id number] [address] [place] H. pylori IgG IA Qlon 2023 H. PYLORI IGG, QUAL Negative Normal Negative [facility] Comment on above: Order Comment: Laury bradshaw Type: BLOOD SPECIMEN Ordering Facility: [facility] Address: [address] [place] [address] Result Comment: Cash ot exclude H. pylori infection if the specimen collected 3-4 weeks after onset of symptoms. Performed By: #### 2 276-4, 2132-9, 2284-8 #### [facility] CLIA [id number] [address] [place] [address] [place] HbA1c (Bld)on 09-05-2023 Average glucose Estimated from glycated hemoglobin (Bld) [Mass/Vol] 108 mg/dL Normal [facility] Comment on above: Order Comment: Laury bradshaw Type: BLOOD SPECIMEN Ordering Facility: [facility] Address: [address] [place] [address] Result Comment: eAG: (Estimated average glucose) is a calculated value from HgbA1c and is sales representative advertising of the average blood glucose level in the last 2-3 month period. Performed By: #### 5 5454-3 #### [facility] CLIA [id number] [address] [place] [address] [place] HbA1c (Bld) [Mass fraction] 5.4 % Normal 4.3-5.6 [facility] Comment on above: Order Comment: Laury bradshaw Type: BLOOD SPECIMEN Ordering Facility: [facility] Address: [address] [place] [address] Result Comment: [place] Diabetes Association guidelines indicate that patients with HgbA1c in the range 5.7-6.4% are at increased risk for development of diabetes, and intervention by lifestyle modification may be beneficial. HgbA1c greater or equal to 6.5% is considered diagnostic of diabetes. Performed By: #### 5 5454-3 #### [facility] CLIA [id number] [address] [place] [address] [place] Iron and Iron binding capaci ty panelon 09-05-2023 Iron [Mass/Vol] 94 ug/dL Normal 41-186 [facility] Comment on above: Order Comment: Speci men Type: BLOOD SPECIMEN Ordering Facility: [facility] Address: [address] [place] [address] Performed By: #### 5 0190-8, 3016-3, 58411-7 #### [facility] CLIA [id number] [address] [place] [address] [place] #### 59627-5 #### [facility] CLIA [id number] [address] [place] [address] [place] [facility] CLIA [id number] [address] [place], [place] [address] Iron binding capacity [Mass/Vol] 310 ug/dL Normal 232-386 [facility] Comment on above: Order Comment: Speci men Type: BLOOD SPECIMEN Ordering Facility: [facility] Address: [address] [place] [address] Performed By: #### 5 0190-8, 6-3, 01558-3 #### [facility] CLIA [id number] [address] [place] [address] [place] #### 84616-8 #### [facility] CLIA [id number] [address] [place] [address] [place] [facility] CLIA [id number] [address] [place] [address] Iron/TIBC [Molar ratio] 30.3 % Normal 15.0-57.0 [facility] Comment on above: Order Comment: Speci men Type: BLOOD SPECIMEN Ordering Facility: [facility] Address: [address] [place] [address] Performed By: #### 5 0190-8, 3016-3, 06401-8 #### [facility] CLIA [id number] [address] [place] [address] [place] #### 84832-7 #### [facility] CLIA [id number] [address] [place] [address] [place] [facility] CLIA [id number] [address] [place] [address] Lipid 1996 panelon 4 Cholesterol [Mass/Vol] 179 mg/dL Normal <200 [facility] Comment on above: Order Comment: Abbii men Type: BLOOD SPECIMEN Ordering Facility: [facility] Address: [address] [place] [address] Result Comment: <200 mg/dL, Desirable 200-239 mg/dL, Borderline high >239 mg/dL, High Performed By: #### 2 276-4, 2132-01, 2283-12 #### [facility] CLIA [id number] [address] [place] [address] [place] Cholesterol in HDL [Mass/Vol] 45 mg/dL Normal >39 [facility] Comment on above: Order Comment: Laury bradshaw Type: BLOOD SPECIMEN Ordering Facility: [facility] Address: [address] [place] [address] Result Comment: 40-5 9 mg/dL, Acceptable >59 mg/dL, High: Negative risk factor for coronary heart disease <40 mg/dL, Low: Positive risk factor for coronary heart disease Performed By: #### 2 276-4, 2132-01, 2283-12 #### [facility] CLIA [id number] [address] [place] [address] [place] Cholesterol in LDL [Mass/Vol] 119 mg/dL High <100 [facility] Comment on above: Order Comment: Laury bradshaw Type: BLOOD SPECIMEN Ordering Facility: [facility] Address: [address] [place] [address] Result Comment: <100 mg/dL, Optimal 100-129 mg/dL, Near optimal/above optimal 130-159 mg/dL, Borderline high 160-189 mg/dL, High >189 mg/dL, Very high Secondary prevention optimal LDL Cholesterol levels are recommended to be < 70 mg/dL Performed By: #### 2 276-4, 9, 2283-12 #### [facility] CLIA [id number] [address] [place] [address] [place] Cholesterol in LDL/Cholesterol in HDL [Mass ratio] 2.64 {ratio} High <2.54 [facility] Comment on above: Order Comment: Laury bradshaw Type: BLOOD SPECIMEN Ordering Facility: [facility] Address: [address] [place] [address] Result Comment: Refe rence: 1. National Cholesterol Education Program ATP III Guideline At-A-Glance Quick Desk Reference: National Heart, Lung, and Blood [place]. National Institutes of Health. 2001: NIH Publication No. 01-3305. 2. An International Atherosclerosis Society position paper: global recommendations for the management of dyslipidemia: executive summary, Atherosclerosis. 2014: 232(2):410-413. Performed By: #### 2 276-4, 2132-01, 2283-12 #### [facility] CLIA [id number] [address] [place] [address] [place] Cholesterol in VLDL [Mass/Vol] 15 mg/dL Normal <30 [facility] Comment on above: Order Comment: Laury bradshaw Type: BLOOD SPECIMEN Ordering Facility: [facility] Address: [address] [place] [address] Performed By: #### 2 276-4, 9, 2283-12 #### [facility] CLIA [id number] [address] [place] [address] [place] Cholesterol non HDL [Mass/Vol] 134 mg/dL High <130 [facility] Comment on above: Order Comment: Laury bradshaw Type: BLOOD SPECIMEN Ordering Facility: [facility] Address: [address] [place] [address] Result Comment: <130 mg/dL, Optimal 130-159 mg/dL, Near optimal/above optimal 160-189 mg/dL, Borderline high 190-219 mg/dL, High >219 mg/dL, Very high Secondary prevention optimal non HDL Cholesterol levels are recommended to be <100 mg/dL Performed By: #### 2 276-4, 2131-9, 2283-12 #### [facility] CLIA [id number] [address] [place] [address] [place] Cholesterol.total/Cho lesterol in HDL [Mass ratio] 3.98 {ratio} Normal <5.10 [facility] Comment on above: Order Comment: Speci men Type: BLOOD SPECIMEN Ordering Facility: [facility] Address: [address] [place] [address] Performed By: #### 2 276-4, 9, 2283-12 #### [facility] CLIA [id number] [address] [place] [address] [place] FASTING TIME 12 hrs Normal [facility] Comment on above: Order Comment: Speci men Type: BLOOD SPECIMEN Ordering Facility: [facility] Address: [address] [place] [address] Performed By: #### 2 276-4, 9, 2283-12 #### [facility] CLIA [id number] [address] [place] [address] [place] Triglyceride [Mass/Vol] 74 mg/dL Normal <150 [facility] Comment on above: Order Comment: Speci men Type: BLOOD SPECIMEN Ordering Facility: [facility] Address: [address] [place] [address] Result Comment: <150 mg/dL, Normal 150-199 mg/dL, Borderline high 200-499 mg/dL, High >499 mg/dL, Very high Performed By: #### 2 276-4, 9, 2283-12 #### [facility] CLIA [id number] [address] [place] [address] [place] NT-proBNP [facility] 09-04 Natriuretic peptide.B prohormone N-Terminal [Mass/Vol] 48 pg/mL Normal <125 [facility] Comment on above: Order Comment: Speci men Type: BLOOD SPECIMEN Ordering Facility: [facility] Address: [address] [place] [address] Performed By: #### 2 276-4, 9, 2283-12 #### [facility] CLIA [id number] [address] [place] [address] [place] TSH SerPl-aCncon 09-05-2023 TSH Qn 6.440 m[IU]/L High 0.270-4.200 [facility] Comment on above: Order Comment: Laury bradshaw Type: BLOOD SPECIMEN Ordering Facility: [facility] Address: [address] [place] [address] Result Comment: If t he patient is , TSH reference range varies by gestational period: First Trimester (weeks 9-12): 0.180-2.990 mIU/L Second Trimester: 0.110-3.980 mIU/L Third Trimester: 0.480-4.710 mIU/L Seth Crews et al. A Practical Approach for the Verifications and Determination of Site- and Trimester-Specific Reference Intervals for Thyroid Function tests in . Thyroid, 2019:29:3:412-420. Zhang E, et al. 2017 Guidelines of the [place] Thyroid Association for the Diagnosis and Management of Thyroid Disease during and the . Thyroid, 2017:27:3:315-389. Performed By: #### 2 276-4, 9, 2283-12 #### [facility] CLIA [id number] [address] [place], [place] [address] [place] VITAMIN B1 (THIAMINE), WHOLE BLOODon 09-05-2023 Thiamine (Bld) [Moles/Vol] 179.2 nmol/L Normal 84.3-213.3 [facility] Comment on above: Order Comment: Laury bradshaw Type: BLOOD SPECIMEN Ordering Facility: [facility] Address: [address] [place] [address] Result Comment: This assay measures the concentration of thiamine diphosphate (TDP), the primary active form of vitamin B1. Approximately 90 percent of vitamin B1 present in whole blood is TDP. Thiamine and thiamine monophosphate, which comprise the remaining 10 percent, are not measured. This test was developed and its performance characteristics determined by [facility]'s [facility] [place] ([facility]). It has not been cleared or approved by the FDA. -[facility] is regulated under CLIA as qualified to perform high-complexity testing. This test is used for clinical purposes. It should not be regarded as investigational or for research. Performed By: #### B 1WB #### [facility] CLIA [id number] [address] [place] [address] [place] Vit B12 SerPl-mCncon 09-04- 024 Cobalamin (Vitamin B12) [Mass/Vol] 612 pg/mL Normal 232-1245 [facility] Comment on above: Order Comment: Speci men Type: BLOOD SPECIMEN Ordering Facility: [facility] Address: [address] [place] [address] Performed By: #### 2 276-4, 2132-9, 2284-8 #### [facility] CLIA [id number] [address] [place] [address] [place] Glucose - FINGER STICKon Glucose [Mass/Vol] 5.4 mg/dL [facility] ACOG PANEL 2: 30 to 65on 06-10-2022 . . Normal [facility] Comment on above: Result Comment: Perf ormed at: WB Performed By: #### [id number] #### [facility] [address] [place] [address] Dr. Sachin Coates Age Gdln ACOG Testing 30-65 Normal [facility] Comment on above: Performed By: #### 4 [id number] #### [facility] [address] [place] [address] Dr. Sachin Coates DIAGNOSIS: Comment [facility] Comment on above: Result Comment: NEGA TIVE FOR INTRAEPITHELIAL LESION OR MALIGNANCY. CELLULAR CHANGES ASSOCIATED WITH INFLAMMATION ARE PRESENT. THIS SPECIMEN WAS RESCREENED PART OF OUR SUPERVISOR FURNACE ROOM PROGRAM. Performed at: WB Performed By: #### [id number] #### [facility] [address] [place] [address] Dr. Sachin Coates HPV Aptima Negative Normal Negative [facility] Comment on above: Result Comment: This nucleic acid amplification test detects fourteen high-risk HPV types (16,18,31,33,35,39,45,51,52,56,58,59,66,68) without differentiation. Performed at: =G Performed By: #### [id number] #### [facility] [address] [address] [address] Sachin Coates HPV Genotype Reflex Comment Normal [facility] Comment on above: Result Comment: Crit eria not met, HPV Genotype not performed. Performed at: WB Performed By: #### [id number] #### [facility] [address] [place] [address] Dr. Sachin Coates Methodology: Comment Normal [facility] Comment on above: Result Comment: This liquid based ThinPrep(R) pap test was screened with the use of an image guided system. Performed at: WB Performed By: #### [id number] #### [facility] [address] [place] [address] Dr. Sachin Coates Note: Comment Normal [facility] Comment on above: Result Comment: The Pap smear is a screening test designed to aid in the detection of premalignant and malignant conditions of the uterine cervix. It is not a diagnostic procedure and should not be used as the sole means of detecting cervical cancer. Both false-positive and false-negative reports do occur. . Performed at: WB Performed By: #### [id number] #### [facility] [address] [place] [address] Dr. Sachin Coates Performed by: Comment Normal [facility] Comment on above: Result Comment: Peyton Beverly, Wrecking Crane Engine Operator (ASCP) Performed at: WB Performed By: #### [id number] #### [facility] [address] [place] [address] Dr. Sachin Coates QC reviewed by: Comment Normal [facility] Comment on above: Result Comment: Cielo Cochran, Supervisory Wrecking Crane Engine Operator (ASCP) Performed at: WB Performed By: #### [id number] #### [facility] [address] [address] [address] Sachin Coates Specimen adequacy: Comment Normal [facility] Comment on above: Result Comment: Sati sfactory for evaluation. Endocervical and/or squamous metaplastic cells (endocervical component) are present. Performed at: WB Performed By: #### [id number] #### [facility] [address] [address] [address] Sachin Coates COVID-19 SOFIAOrdered By: Dario To on 12-02-2021 SARS-CoV+SARS-CoV-2 (COVID-19) Ag IA.rapid Ql (Resp) Negative Negative [facility] Comment on above: This is a duplicate Zuleyma SARS Antigen (PAMELLA) result to be used for statistical tracking purpose only. No Panel InformationOrdered By: Ck To on 12-02-2021 SARS Antigen (LFIA) [facility] Chart Updateon 08-08-2020 Chart Update Chart [...] 8:36 AM TASK IN PROGRESS Va Stern 08 Aug 2020 8:56 AM TASK REASSIGNED: Previously Assigned To Va Stern Signatures Electronically signed by : RADHA Campos; Aug 08 2020 10:18AM EST (Author) Normal [place] HOPPER FEEDER - Procedure Visiton 0 07-10-2020 HOPPER FEEDER - Procedure Visit Chief Complaint IUI Active [...] ESTRADIOL 186 pg/mL Normal [facility] Comment on above: Result Comment: Estr adiol measurement is performed using the [employer] Access Sensitive Estradiol Immunoassay. Estradiol testing is performed using a different test methodology at [facility] than other [facility]. Direct result comparison should only be made within the same method. REF VALUES EARLY FOLLICULAR 22-115 MID FOLLICULAR 25-115 OVULATORY PEAK 32-517 MID LUTEAL 37-246 POSTMENOPAUSE <15- 25 MALE <15- 32 Performed By: #### G [facility] #### [facility] [address] [place] [address] Estradiol, Serumon E2 [Mass/Vol] 186 pg/mL -OBGYN-[facility] an 310 IVF Work Phone: Comment on above: Estradiol measuremen t is performed using the [employer] Access Sensitive Estradiol Immunoassay. Estradiol testing is performed using a different test methodology at [facility] than other [facility]. Direct result comparison should only be made within the same method.REF VALUESEARLY FOLLICULAR 22-115MID FOLLICULAR 25-115OVULATORY PEAK 32-517MID LUTEAL 37-246POSTMENOPAUSE <15- 25MALE <15- 32 LUTEINIZING HORMONEon 2020 LUTEINIZING HORMONE 9.5 IU/L Normal [facility] Comment on above: Result Comment: Lute inizing Hormone [LH] is performed using the Shruthi J Carlos Access Immunoassay. LH testing is performed using a different test methodology at [facility] than other [facility]. Direct result comparison should only be made within the same method. REF VALUES FOLLICULAR PHASE 1.5-10.0 MID-CYCLE 13.0-72.0 LUTEAL PHASE 0.5-13.0 MENOPAUSE 15.0-65.0 PREPUBERTY 0- 3.0 CHILDREN 0- 6.0 ADULT MALE 1.0- 9.0 Performed By: #### G [facility] #### [facility] [address] [place] [address] Luteinizing Hormone, Serumon 07-08-2020 Lutropin Qn 9.5 {IU/L} RI-BRYYB-Mqvl an 310 IVF Work Phone: Comment on above: Luteinizing Hormone [LH] is performed using the Shruthi Carrington Access Immunoassay. LH testing is performed using a different test methodology at [facility] than [facility]. Direct result comparison should only be made within the same method.REF VALUESFOLLICULAR PHASE 1.5-10.0MID-CYCLE 13.0-72.0LUTEAL PHASE 0.5-13.0MENOPAUSE 15.0-65.0PREPUBERTY 0- 3.0CHILDREN 0- 6.0ADULT MALE 1.0- 9.0 TYPE + SCREENon 07-06-2020 ABO TYPE A Normal [facility] Comment on above: Performed By: #### T +S #### [facility] [address] [place] [address] RH TYPE Positive Normal [facility] Comment on above: Performed By: #### T +S #### [facility] [address] [place] [address] ESTRADIOLon 07-05-2020 ESTRADIOL 58 pg/mL Normal [facility] Comment on above: Result Comment: Estr adiol measurement is performed using the [employer] Access Sensitive Estradiol Immunoassay. Estradiol testing is performed using a different test methodology at [facility] than other [facility]. Direct result comparison should only be made within the same method. REF VALUES EARLY FOLLICULAR 22-115 MID FOLLICULAR 25-115 OVULATORY PEAK 32-517 MID LUTEAL 37-246 POSTMENOPAUSE <15- 25 MALE <15- 32 Performed By: #### [facility] #### [facility] [address] [place] [address] Estradiol, Serumon 1 E2 [Mass/Vol] 58 pg/mL MG-OBGYN-Ri sm an 310 IVF Work Phone: Comment on above: Estradiol measuremen t is performed using the [employer] Access Sensitive Estradiol Immunoassay. Estradiol testing is performed using a different test methodology at [facility] than other [facility]. Direct result comparison should only be made within the same method.REF VALUESEARLY FOLLICULAR 22-115MID FOLLICULAR 25-115OVULATORY PEAK 32-517MID LUTEAL 37-246POSTMENOPAUSE <15- 25MALE <15- 32 Hematologyon 07-05-2020 ABO group Nom (Bld) A MG-LACE BURN OUT TENDER-Rism an 310 IVF Work Phone: Blood group antibody screen Ql Negative KJ-DMVHS-Eosu an 310 IVF Work Phone: Rh immune globulin screen (Bld) [Interp] Positive MG-OBGYN-R ism an 310 IVF Work Phone: LUTEINIZING HORMONEon 2020 LUTEINIZING HORMONE 9.2 IU/L Normal [facility] Comment on above: Result Comment: Lute inizing Hormone [LH] is performed using the [employer] Access Immunoassay. LH testing is performed using a different test methodology at [facility] than other [facility]. Direct result comparison should only be made within the same method. REF VALUES FOLLICULAR PHASE 1.5-10.0 MID-CYCLE 13.0-72.0 LUTEAL PHASE 0.5-13.0 MENOPAUSE 15.0-65.0 PREPUBERTY 0- 3.0 CHILDREN 0- 6.0 ADULT MALE 1.0- 9.0 Performed By: #### L H #### [facility] [address] [place] [address] Luteinizing Hormone, Serumon 07-05-2020 Lutropin Qn 9.2 {IU/L} KK-SNQPH-Omae an 310 IVF Work Phone: Comment on above: Luteinizing Hormone [LH] is performed using the Shruthi Carrington Access Immunoassay. LH testing is performed using a different test methodology at [facility] than other [facility]. Direct result comparison should only be made within the same method.REF VALUESFOLLICULAR PHASE 1.5-10.0MID-CYCLE 13.0-72.0LUTEAL PHASE 0.5-13.0MENOPAUSE 15.0-65.0PREPUBERTY 0- 3.0CHILDREN 0- 6.0ADULT MALE 1.0- 9.0 HOPPER FEEDER - Office Visiton 02-0 HOPPER FEEDER - Office Visit Diagnoses/Problems Assessed Morbid obesity [...] MD [facility] [phone] [place] [phone] [place] 1 Amended By: Bayron Mccarty; Jun [...] MD [facility] [phone] Julien [phone] [place] Appointment Duration:. 25 minutes; greater than half of the time was spent on counseling. 1 Amended By: Bayron Mccarty; Jun 19 2020 10:16 AM ESTChief Complaint follow up History of Present Xdkbupo0206/19/2020 9:30AM JALEESA ARRIETA , 30 year is contacted for an (audio-visual, or audio only) Telehealth visit. Today's visit was provided through telemedicine conferencing: Using [employer] platform. Consent: The concept of telemedicine? has [...] is a telehealth appointment Results/Data HCG, Beta [id number] 11:58AMBayron Mccarty Test NameResultFlagReference HCG, Beta Quantitative<2 [...] performed using a different test methodology at [facility] than other [facility]. Direct result comparison should only be made within the same method. REF VALUES NON FEMALE <5 MALES <5 Progesterone, Dwkqi51Jmn8555 11:58AMBayron Mccarty Test NameResultFlagReference Progesterone, Serum10.5 ng/mL REF VALUES MALE <0.3- 1.2 FOLLICULAR PHASE <0.3- 1.4 LUTEAL PHASE 3.3-25.6 MID-LUTEAL PHASE 4.4-28.0 POSTMENOPAUSAL <0.3- 0.7 FEMALES: 1ST TRIMESTER 11.2- 90.0 2ND TRIMESTER 25.6- 89.4 3RD TRIMESTER 48.4-422.5 . Patients receiving DHEA-S supplements may show false elevation of progesterone for results near 1.0 ng/mL. Contact laboratory at [phone] if alternative testing is needed. CMV IgG and IgM [id number] 11:58AMFincollin, Bayron Test NameResultFlagReference CMV IgG AntibodyREACTIVEASee Below Reference Range: NONREACTIVE CMV IGM [id number] 11:58AMBibiana Bayron Test NameResultFlagReference CMV IGM AB<30.00 AU/mL REFERENCE [...] testing in two or more weeks. Xray Lbccyexhvwfscudejtb23Lsm 2020 12:00AMBayron Mccarty [Mar 28, 2020 9:43AM Bayron Mccarty] Reason: Unspecified for Xray Hysterosalpingogram Test NameResultFlagReference Xray Hysterosalpingogram Please click on the link to view the study images Anti Mullerian [id number] 12:03PMBayron Mccarty Test NameResultFlagReference Anti Mullerian Hormone6.36 ng/mL For assays employing antibodies, the possibility exists for interference by heterophile antibodies in the samples.1 1.Oswald Crews. Interferences in Immunoassays - still a threat. Clin. Chem. 2000; 46: 4306-1840. This test was developed and its performance characteristics determined by [employer]. It has not been cleared or approved by the Food and Drug Administration. Reference Range: Females 26 - 30y: 1.03 - 11.10 Median 4.20 AMH concentrations of >= 1.06 ng/mL is correlated with a better response to ovarian stimulation, produced more retrievable oocytes and higher odds of live according to Carey et al. Fertility and Sterility. 2010: 94:4687-0039. The current AMH test method correlates with [...] exclude an AMH-secreting ovarian tumor. Rubella IgG Ewrnlnmb32Agt3822 12:03PMBibiana Bayron Test NameResultFlagReference Rubella IgG AntibodyPOSITIVE [...] TSH WITH REFLEX TO FREE T4 IF [id number] 12:03PMBayron Mccarty Test NameResultFlagReference Thyroid Stimulating Hormone, Serum2.17 mIU/LSee Below Reference Range: 0.44 - 3.98 TSH testing is performed using different testing methodology at [facility] than at other [facility]. Direct result comparisons should only be made within the same method. Varicella Zoster IgG Apcdsbds33Ptt6021 12:03PMBayron Mccarty Test NameResultFlagReference Varicella Zoster IgG [...] altered results in serological assays. Vitamin D 25-Tzaxggu65Ogb7808 12:03PMBayron Mccarty Test NameResultFlagReference Vitamin D 25-Hydroxy, Level17 ng/mLA . DEFICIENCY: < 20 NG/ML INSUFFICIENCY: 20-29 NG/ML SUFFICIENCY: 30-100 NG/ML THIS ASSAY ACCURATELY QUANTIFIES THE SUM OF VITAMIN D3, 25-HYDROXY AND VIT D2,25-HYDROXY. { 17-Hydroxyprogesterone, Dxqna89Plx7045 12:03PMBayron Mccarty Test NameResultFlagReference 17-Hydroxyprogesterone, Serum33 ng/dL [...] Endocrinol Metab. 1991;73:674-686; J Clin Endocrinol Metab. 1989;69;1380-8848; J Clin Endocrinol Metab. 1994;78:226-270. Pediatr Res 1988;23:525-529. MedLinePlus (accessed 10/25/13). This test was developed and its analytical performance characteristics have been determined by [employer] [place], [place]. It has not been cleared or approved by the U.S. Food and Drug Administration. This assay has been validated pursuant to the CLIA regulations and is used for clinical purposes. DHEA Sulfate, Vbbet75Soh9160 12:03Bayron Silva Test NameResultFlagReference DHEA Sulfate, Jaoyq413 ug/dL65 - 395 MATURITY-BASED REFERENCE RANGES: PUBERTAL [...] laboratory for further information. Testosterone Free + [id number] 12:03PMBibiana Bayron Test NameResultFlagReference Testosterone, Total63 ng/dLH2-45 For additional information, please refer to http://education.YeePay/faq/ TotalTestosteroneLCMSMSF AQ165 (This link is being provided for informational/ educational purposes only.) This test was developed and its analytical performance characteristics have been determined by [employer] [place], [place]. It has not been cleared or approved by the U.S. Food and Drug Administration. This assay has been validated pursuant to the CLIA regulations and is used for clinical purposes. Testosterone, Free Serum8.8 pg/mLH0.1-6.4 This test was developed and its analytical performance characteristics have been determined by [employer]. It has not been cleared or approved by the U.S. Food and Drug Administration. This assay has been validated pursuant to the CLIA regulations and is used for clinical purposes. Hemoglobin [id number] 12:03PMBibiana Bayron Test NameResultFlagReference Hemoglobin A1C, Level5.5 % Diagnosis of Diabetes-Adults Non-Diabetic: < or = 5.6% Increased risk for developing diabetes: 5.7-6.4% Diagnostic of diabetes: > or = 6.5% . Monitoring of Diabetes Age (y) Therapeutic Goal (%) Adults: >18 <7.0 Pediatrics: 13-18 <7.5 7-12 <8.0 0- 6 7.5-8.5 [place] [employer]. Diabetes Care 33(S1), May 2009. Estimated Average Hwbycxm029 MG/DL GC + Chlamydia By Amplified Fynhphflo42Pgf3273 12:03PMBibiana Bayron Test NameResultFlagReference N.GONORRHEA,AMPLIFIEDNEG ATIVENegative SOURCE: Urine Chlamydia Trach, AmplifiedNEGATIVENegativ e Hepatitis B Surface Mxrfwkz88Qys9577 12:03PMBayron Mccarty Test NameResultFlagReference Hep.B Surface AgNONREACTIVESee Below Reference Range: NONREACTIVE Biotin interference may cause falsely decreased results. Patients taking a Biotin dose of up to 5 mg/day should refrain from taking Biotin for 24 hours before sample collection. Providers may contact their local laboratory for further information. Hepatitis C Antibody [id number] 12:03PMBayron Mccarty Test NameResultFlagReference Hepatitis C-AntibodyNONREACTIVESee Below Reference Range: NONREACTIVE Results from patients taking biotin supplements or receiving high-dose biotin therapy should be interpreted with caution due to possible interference with this test. Providers may contact their local laboratory for further information. HIV 1/2 ANTIGEN/ANTIBODY SCREEN WITH REFLEX TO [id number] 12:03PMBayron Mccarty Test NameResultFlagReference HIV 1/2 AG/AB SCREENNONREACTIVESee Below Reference Range: NONREACTIVE HIV Ag/Ab screen is performed using the Siemens [employer] HIV Ag/Ab Combo assay which detects the presence of HIV p24 antigen as well as antibodies to HIV-1 (Group M and O) and HIV-2. SYPHILIS SCREENING WITH [id number] 12:03Bayron Silva Test NameResultFlagReference SYPHILIS TOTAL ANTIBODYNONREACTIVESee Below SOURCE: Reference Range: NONREACTIVE No significant level of Treponema pallidum antibody detected. Repeat testing in 2 to 4 weeks may be considered if early infection or incubating syphilis infection is suspected. Signatures Electronically signed by : Bayron Mccarty MD; Jun 19 2020 10:16AM EST (Author) Normal [employer] CMV IGM ABon 04-20-2020 CMV IGM AB <30.00 Normal [facility] Comment on above: Result Comment: REFE [...] weeks. Performed By: #### C MVM2 #### [facility] [address] [place] [address] CMV IGG AND IGM ABon 020 CMV IGG AB REACTIVE Abnormal NONREACTIVE [facility] Comment on above: Performed By: #### C MV2 #### [facility] [address] [place] [address] PROGESTERONEon 04-16-2020 PROGESTERONE 10.5 ng/mL Normal [facility] Comment on above: Result Comment: REF VALUES MALE <0.3- 1.2 FOLLICULAR PHASE <0.3- 1.4 LUTEAL PHASE 3.3-25.6 MID-LUTEAL PHASE 4.4-28.0 POSTMENOPAUSAL <0.3- 0.7 FEMALES: 1ST TRIMESTER 11.2- 90.0 2ND TRIMESTER 25.6- 89.4 3RD TRIMESTER 48.4-422.5 . Patients receiving DHEA-S supplements may show false elevation of progesterone for results near 1.0 ng/mL. Contact laboratory at [phone] if alternative testing is needed. Performed By: #### P BOBBY #### [facility] [address] [place] [address] HCG,BETA-QUANTITATIVEon HCG,BETA-QUANTITATIVE <2 Normal [facility] Comment on above: Result Comment: Low- [...] HCG measurement is performed using the Shruthi Carrington Access Immunoassay which detects intact HCG and free beta HCG subunit. This test is not indicated for use as a tumor marker. HCG testing is performed using a different test methodology at [facility] than other system hospitals. Direct result comparison should only be made within the same method. REF VALUES NON FEMALE <5 MALES <5 Performed By: #### H QU #### [address] [id number] HOPPER FEEDER - Office Visiton HOPPER FEEDER - Office Visit Chief Complaint An interactive [...] test results. Roby JEWELL. History of Present Hlhbinv1004/14/2020 9:30AM JALEESA ARRIETA , 30 year is contacted for an (audio-visual, or audio only) Telehealth visit. Today's visit was provided through telemedicine conferencing: Using [employer] platform. Consent: The concept of telemedicine? has [...] surgically absent. Seen by Dr. Maradiaga with [facility], please see his recommendations. Patient was found [...] 2020 1:15:24 PM Vitals Vital Signs Recorded: 55Igl3301 09:08AM Height5 ft 6 in Hxvnwi597 lb BMI Sciifqzpvf37.81 BSA Calculated2.34 VLH04Wem2912 Gravida1 Para0 Pain Scale0 Physical Exam This is a telehealth appointment Results/Data Anti Mullerian Phlggxv68Cea0812 12:03PMBayron Mccarty Test NameResultFlagReference Anti Mullerian Hormone6.36 ng/mL For assays employing antibodies, the possibility exists for interference by heterophile antibodies in the samples.1 1.Oswald Crews. Interferences in Immunoassays - still a threat. Clin. Chem. 2000; 46: 8845-2332. This test was developed and its performance characteristics determined by [employer]. It has not been cleared or approved by the Food and Drug Administration. Reference Range: Females 26 - 30y: 1.03 - 11.10 Median 4.20 AMH concentrations of >= 1.06 ng/mL is correlated with a better response to ovarian stimulation, produced more retrievable oocytes and higher odds of live according to Gleicher et al. Fertility and Sterility. 2010: 94:4638-9142. The current AMH test method correlates with [...] exclude an AMH-secreting ovarian tumor. Anti Mullerian Hbcvoox36Rhj3029 12:03PMBayron Mccarty Test NameResultFlagReference Anti Mullerian Hormone6.36 ng/mL For assays employing antibodies, the possibility exists for interference by heterophile antibodies in the samples.1 1.Oswald Brunner Interferences in Immunoassays - still a threat. Clin. Chem. 2000; 46: 6521-4323. This test was developed and its performance characteristics determined by [employer]. It has not been cleared or approved by the Food and Drug Administration. Reference Range: Females 26 - 30y: 1.03 - 11.10 Median 4.20 AMH concentrations of >= 1.06 ng/mL is correlated with a better response to ovarian stimulation, produced more retrievable oocytes and higher odds of live according to Gleicher et al. Fertility and Sterility. 2010: 94:4587-1846. The current AMH test method correlates with [...] exclude an AMH-secreting ovarian tumor. Rubella IgG Bvnobjfm63Ngp2738 12:03PMBayron Mccarty Test NameResultFlagReference Rubella IgG AntibodyPOSITIVE [...] TSH WITH REFLEX TO FREE T4 IF [id number] 12:03PMBayron Mccarty Test NameResultFlagReference Thyroid Stimulating Hormone, Serum2.17 mIU/LSee Below Reference Range: 0.44 - 3.98 TSH testing is performed using different testing methodology at [facility] than at other [facility]. Direct result comparisons should only be made within the same method. Varicella Zoster IgG Lfqiryby17Caf7010 12:03PMBayron Mccarty Test NameResultFlagReference Varicella Zoster IgG [...] altered results in serological assays. Vitamin D 25-Qhmkhdp46Ayb8898 12:03PMBayron Mccarty Test NameResultFlagReference Vitamin D 25-Hydroxy, Level17 ng/mLA . DEFICIENCY: < 20 NG/ML INSUFFICIENCY: 20-29 NG/ML SUFFICIENCY: 30-100 NG/ML THIS ASSAY ACCURATELY QUANTIFIES THE SUM OF VITAMIN D3, 25-HYDROXY AND VIT D2,25-HYDROXY. { 17-Hydroxyprogesterone, Etmqr13Yjf7194 12:03PMBayron Mccarty Test NameResultFlagReference 17-Hydroxyprogesterone, Serum33 ng/dL [...] Endocrinol Metab. 1991;73:674-686; J Clin Endocrinol Metab. 1989;69;9513-4411; J Clin Endocrinol Metab. 1994;78:226-270. Pediatr Res 1988;23:525-529. MedLinePlus (accessed 10/25/13). This test was developed and its analytical performance characteristics have been determined by [employer]. It has not been cleared or approved by the U.S. Food and Drug Administration. This assay has been validated pursuant to the CLIA regulations and is used for clinical purposes. DHEA Sulfate, Styqx72Myy3956 12:03PMBayron Mccarty Test NameResultFlagReference DHEA Sulfate, Yicmg032 ug/dL65 - 395 MATURITY-BASED REFERENCE RANGES: PUBERTAL [...] laboratory for further information. Testosterone Free + Ctfte05Yac6311 12:03PMBayron Mccarty Test NameResultFlagReference Testosterone, Total63 ng/dLH2-45 For additional information, please refer to http://education.YeePay/faq/ TotalTestosteroneLCMSMSF AQ165 (This link is being provided for informational/ educational purposes only.) This test was developed and its analytical performance characteristics have been determined by [facility] [place]. It has not been cleared or approved by the U.S. Food and Drug Administration. This assay has been validated pursuant to the CLIA regulations and is used for clinical purposes. Testosterone, Free Serum8.8 pg/mLH0.1-6.4 This test was developed and its analytical performance characteristics have been determined by [facility] [place]. It has not been cleared or approved by the U.S. Food and Drug Administration. This assay has been validated pursuant to the CLIA regulations and is used for clinical purposes. Hemoglobin [id number] 12:03PMBayron Mccarty Test NameResultFlagReference Hemoglobin A1C, Level5.5 % Diagnosis of Diabetes-Adults Non-Diabetic: < or = 5.6% Increased risk for developing diabetes: 5.7-6.4% Diagnostic of diabetes: > or = 6.5% . Monitoring of Diabetes Age (y) Therapeutic Goal (%) Adults: >18 <7.0 Pediatrics: 13-18 <7.5 7-12 <8.0 0- 6 7.5-8.5 [place] [employer]. Diabetes Care 33(S1), May 2009. Estimated Average Iputknd141 MG/DL GC + Chlamydia By Amplified Kgyhkwrug25Njh4895 12:03Bayron Silva Test NameResultFlagReference N.GONORRHEA,AMPLIFIEDNEG ATIVENegative SOURCE: Urine Chlamydia Trach, AmplifiedNEGATIVENegativ e Hepatitis B Surface Uzgxbow46Wgw6339 12:03PMBayron Mccarty Test NameResultFlagReference Hep.B Surface AgNONREACTIVESee Below Reference Range: NONREACTIVE Biotin interference may cause falsely decreased results. Patients taking a Biotin dose of up to 5 mg/day should refrain from taking Biotin for 24 hours before sample collection. Providers may contact their local laboratory for further information. Hepatitis C Antibody [id number] 12:03PMBayron Mccarty Test NameResultFlagReference Hepatitis C-AntibodyNONREACTIVESee Below Reference Range: NONREACTIVE Results from patients taking biotin supplements or receiving high-dose biotin therapy should be interpreted with caution due to possible interference with this test. Providers may contact their local laboratory for further information. HIV 1/2 ANTIGEN/ANTIBODY SCREEN WITH REFLEX TO [id number] 12:03PMYuniorBayron polanco Test NameResultFlagReference HIV 1/2 AG/AB SCREENNONREACTIVESee Below Reference Range: NONREACTIVE HIV Ag/Ab screen is performed using the Siemens [employer] HIV Ag/Ab Combo assay which detects the presence of HIV p24 antigen as well as antibodies to HIV-1 (Group M and O) and HIV-2. SYPHILIS SCREENING WITH [id number] 12:03PMBibiana Bayron Test NameResultFlagReference SYPHILIS TOTAL ANTIBODYNONREACTIVESee Below SOURCE: Reference Range: NONREACTIVE No significant level of Treponema pallidum antibody detected. Repeat testing in 2 to 4 weeks may be considered if early infection or incubating syphilis infection is suspected. Diagnoses/Problems Irregular menses (626.4) (N92.6) Morbid obesity (278.01) (E66.01) Orders HCG, Beta Quantitative; Status:Active; Requested for:17Iyz8544; Perform:Lab Services - Lab To Draw (Blood Test); Due:13Jul2020;Ordered; For:Irregular menses; Ordered By:Bayron Mccarty; Progesterone, Serum; Status:Active; Requested for:16Pkr5594; Perform:Lab Services - Lab To Draw (Blood [...] MD [facility] [phone] [place] [phone] [place] Appointment Duration:. 25 minutes; greater than [...] [facility] [phone] [place] [phone] [place] 1 Amended By: Bayron Mccarty; Apr 14 2020 4:50 PM ESTSignatures Electronically signed by : Bayron Mccarty MD; Apr 14 2020 4:51PM EST (Author) Normal [facility] HOPPER FEEDER - Procedure Visiton 1 05-28-2019 HOPPER FEEDER - Procedure Visit Chief Complaint pt presents [...] 1 CAPSULE EVERY 12 HOURS DAILY; Therapy: 17Gah5137 to (Evaluate:96Ipy8887) Requested for: 87Jft7757; Last Rx:[id number] Ordered Rx By: Bayron Mccarty; Dispense: 5 Days ; #:10 Capsule; Refill: 0;For: Fertility testing; KEVIN = N; Verified Transmission to [place] [address]; Msg to Pharmacy: start medication the night before her procedure; Last Updated By: Cindi Lizarraga; 01/24/2020 12:08:27 PM Vitamin D 25 MCG (1000 UT) Oral Tablet; Therapy: 73Web1744 to Recorded Dispense: 0 Days ; #: [...] Signatures Electronically signed by : Kelle Vaz APRN-PARKING LINE PAINTER; Mar 28 2020 4:10PM EST (Author) Normal [facility] HOPPER FEEDER - Office Visiton 11-0 HOPPER FEEDER - Office Visit Chief Complaint The patient [...] is considering single parent procreation. Her usual [facility] with whom she would plan to follow with for care in a future is Dr. Ng in [place]. Active Problems Female infertility (628.9) (N97.9) Fertility [...] 1 CAPSULE EVERY 12 HOURS DAILY; Therapy: 54Ezm9823 to (Evaluate:67Sms8289) Requested for: 65Peg5435; Last Rx:[id number] Ordered Rx By: Bayron Mccarty; Dispense: 5 Days ; #:10 Capsule; Refill: 0; For: Fertility testing; KEVIN = N; Verified Transmission to [place] [address]; Msg to Pharmacy: start medication the night before her procedure; Last Updated By: Elham[employer]er [employer]; 01/24/2020 12:08:27 PM Vitamin D 25 MCG (1000 UT) Oral Tablet; Therapy: 98Ogd3453 to Recorded Dispense: 0 Days ; #: Sufficient Tablet; Refill: 0; KEVIN = N; Record; Last Updated By: Breezy Jasso; 2020 1:15:24 PM Vitals Vital Signs Recorded: 13Mar2020 01:08PM Heart Rate96 Dysdfvxn520 Znfyraxmz51 Height5 ft 6 in Byrriz861 lb BMI Aqevifqcwq03.91 BSA Calculated2.39 Tobacco Useb) No Fall Screeninga) No falls within the last year RNR30Nnx2234 Gravida1 Para0 Pain Scale0 Diagnoses/Problems Morbid obesity [...] consultation of which greater than 50% was ziwq-pv-zsdd counseling. Weight loss prior to conception is [...] MD; Jun 12 2020 4:50PM EST Normal [facility] ANTI MULLERIAN HORMONEon ANTI MULLERIAN HORMONE 6.36 ng/mL Normal [facility] Comment on above: Result Comment: For assays employing antibodies, the possibility exists for interference by heterophile antibodies in the samples.1 1.Oswald Crews. Interferences in Immunoassays - still a threat. Clin. Chem. 2000; 46: 3943-0267. This test was developed and its performance characteristics determined by [employer]. It has not been cleared or approved by the Food and Drug Administration. Reference Range: Females 26 - 30y: 1.03 - 11.10 Median 4.20 AMH concentrations of >= 1.06 ng/mL is correlated with a better response to ovarian stimulation, produced more retrievable oocytes and higher odds of live according to Carey et al. Fertility and Sterility. 2010: 94:8708-0230. The current AMH test method correlates with [...] ovarian tumor. Performed By: #### A #### [employer] [place] [address] [place] [address] [id number] 17-HYDROXYPROGESTERONEon 17-HYDROXYPROGESTERON E 33 ng/dL Normal [facility] Comment on above: Result Comment: Unable to [...] Endocrinol Metab. 1991;73:674-686; J Clin Endocrinol Metab. 1989;69;6782-8046; J Clin Endocrinol Metab. 1994;78:226-270. Pediatr Res 1988;23:525-529. MedLinePlus (accessed 10/25/13). This test was developed and its analytical performance characteristics have been determined by [facility] [place] It has not been cleared or approved by the U.S. Food and Drug Administration. This assay has been validated pursuant to the CLIA regulations and is used for clinical purposes. Performed By: #### 1 7[facility] #### [facility] [address] [place] [address] TESTOST,FREE AND TOTALon TESTOSTERONE TOT.LC/MS/MS 63 ng/dL High 2-45 [facility] Comment on above: Result Comment: For additional information, please refer to http://education.[employer]faq/ TfmnuCsqdgzfvxuayGSYUIXMWV798 (This link is being provided for informational/ educational purposes only.) This test was developed and its analytical performance characteristics have been determined by [facility] [place]. It has not been cleared or approved by the U.S. Food and Drug Administration. This assay has been validated pursuant to the CLIA regulations and is used for clinical purposes. Performed By: #### G [facility] #### [facility] [address] [place] [address] TESTOSTERONE,FREE 8.8 pg/mL High 0.1-6.4 [facility] Comment on above: Result Comment: This test was developed and its analytical performance characteristics have been determined by [facility] [place] [place]. It has not been cleared or approved by the U.S. Food and Drug Administration. This assay has been validated pursuant to the CLIA regulations and is used for clinical purposes. Performed By: #### G [facility] #### [facility] [address] [place] [address] DHEA SULFATEon 01-25-2020 DHEA SULFATE 214 ug/dL Normal 65 - 395 [facility] Comment on above: Result Comment: MATU RITY-BASED [...] for further information. Performed By: #### G [facility] #### [facility] [address] [place] [address] GC + CHLAMYDIA BY AMPLIFIED DETECTIONon 01-25-2020 CHLAMYDIA TRACH.,AMPLIFIED Negative Normal Negative [facility] Comment on above: Performed By: #### G CCHA #### [facility] [address] [place] [address] N.GONORRHEA,AMPLIFIED Negative Normal Negative [facility] Comment on above: Performed By: #### [facility] #### [facility] [address] [place] [address] HEPATITIS B SURFACE AGon HEP.B SURFACE AG NONREACTIVE Normal NONREACTIVE [facility] Comment on above: Result Comment: Biot in interference may cause falsely decreased results. Patients taking a Biotin dose of up to 5 mg/day should refrain from taking Biotin for 24 hours before sample collection. Providers may contact their local laboratory for further information. Performed By: #### [facility] #### [facility] [address] [place], [place] HEPATITIS C ABon 01-25-2020 HEPATITIS C AB NONREACTIVE Normal NONREACTIVE [facility] Comment on above: Result Comment: Resu lts from patients taking biotin supplements or receiving high-dose biotin therapy should be interpreted with caution due to possible interference with this test. Providers may contact their local laboratory for further information. Performed By: #### H [facility] #### [facility] [address] [place], [place] HIV ANTIGEN/ANTIBODY SCREENo n 01-25-2020 HIV AG/AB SCREEN NONREACTIVE Normal NONREACTIVE [facility] Comment on above: Result Comment: HIV Ag/Ab screen is performed using the Siemens [employer]com HIV Ag/Ab Combo assay which detects the presence of HIV p24 antigen as well as antibodies to HIV-1 (Group M and O) and HIV-2. Performed By: #### [facility] #### [facility] [address] [place] [address] RUBELLA IGG ABon 01-25-2020 RUBELLA IGG AB [...] assays. Performed By: #### R UBIG #### [facility] [address] [place] [id number] SYPHILIS SCREENING WITH REFL EXon 01-25-2020 SYPHILIS TOTAL AB NONREACTIVE Normal NONREACTIVE [facility] Comment on above: Result Comment: No s ignificant level of Treponema pallidum antibody detected. Repeat testing in 2 to 4 weeks may be considered if early infection or incubating syphilis infection is suspected. Performed By: #### S YPHR #### [facility] [address] [place] [address] TSH WITH REFLEX TO FREE T4 I F ABNORMALon 01-25-2020 TSH Qn 2.17 m[IU]/L Normal 0.44 - 3.98 [facility] Comment on above: Result Comment: TSH testing is performed using different testing methodology at [facility] than at other [facility]. Direct result comparisons should only be made within the same method. Performed By: #### G CCHA #### [facility] [address] [place] [id number] VARICELLA ZOSTER IGG ABon VARICELLA ZOSTER IGG AB Negative Normal NEGATIVE [facility] Comment on above: Result Comment: INTE RPRETATIVE [...] assays. Performed By: #### V ARZG #### [facility] [address] [place] [address] VITAMIN D, 25-HYDROXYon 01-10 VITAMIN D, 25-HYDROXY 17 ng/mL Abnormal [facility] Comment on above: Result Comment: . DEFICIENCY: < 20 NG/ML INSUFFICIENCY: 20-29 NG/ML SUFFICIENCY: 30-100 NG/ML THIS ASSAY ACCURATELY QUANTIFIES THE SUM OF VITAMIN D3, 25-HYDROXY AND VIT D2,25-HYDROXY. { Performed By: #### G CCHA #### [facility] [address] [place] [address] GC + CHLAMYDIA BY AMPLIFIED DETECTIONon 01-24-2020 Lab Specimen Source Urine Normal [facility] Comment on above: Performed By: #### G CCHA #### [facility] [address] [place] [address] HEMOGLOBIN A1Con 01-24-2020 HbA1c (Bld) [Mass fraction] 5.5 % Normal [facility] Comment on above: Result Comment: Diag nosis of Diabetes-Adults Non-Diabetic: < or = 5.6% Increased risk for developing diabetes: 5.7-6.4% Diagnostic of diabetes: > or = 6.5% . Monitoring of Diabetes Age (y) Therapeutic Goal (%) Adults: >18 <7.0 Pediatrics: 13-18 <7.5 7-12 <8.0 0- 6 7.5-8.5 [place] [employer]. Diabetes Care 33(S1), May 2009. Performed By: #### H BA1E #### [facility] [address] [place] [address] HbA1c (Bld) [Mass fraction] 111 MG/DL Normal [facility] Comment on above: Performed By: #### H BA1E #### [facility] [address] [place] [address] HOPPER FEEDER - Office Visiton 01-10 HOPPER FEEDER - Office Visit Chief Complaint 29 year [...] is currently incarcerated, and will be in long term until 2026. She is interested in pursuing fertility testing today, and pending these results would potentially be interested in single-parent procreation with donor sperm. She is not currently sexually active. She has a history of ectopic in 2011, which was treated with laparoscopic left salpingectomy in [facility]. Patient has a remote history [...] Symptoms: Heavy bleeding with no severe pain CONSTRUCTION MGR HISTORY: STDs: Yes, remote history of gonorrhea [...] PM Vitals Vital Signs Recorded: 24Jan2020 11:13AM Vjixbtvyzkl58.7 F Heart Fizn031 Ivjdgfqn980 Asrtpcpqo62 Height5 ft 6 in Oyjosb584 lb BMI Sqbwjigbgx59.13 BSA Calculated2.35 Tobacco Useb) No Fall Screeninga) No falls within the last year [id number] Gravida1 Para0 Pain Scale0 Diagnoses/Problems Female infertility (628.9) (N97.9) Fertility testing (V26.21) (Z31.41) Morbid obesity (278.01) (E66.01) Irregular menses (626.4) (N92.6) Screening for STD (sexually transmitted disease) (V74.5) (Z11.3) *Orders Anti Mullerian Hormone; Status:Active; Requested for:24Jan2020; Perform:Lab Services - Lab To Draw (Non-Blood Test); Due:71Sfr4288;Ordered; For:Female infertility, Fertility testing, Irregular menses, Morbid obesity; Ordered By:Bayron Mccarty; Start: Doxycycline Monohydrate 100 MG Oral Capsule; TAKE 1 CAPSULE EVERY 12 HOURS DAILY Rx By: Bayron Mccarty; Dispense: 5 Days ; #:10 Capsule; Refill: 0; For: Fertility testing; KEVIN = N; Verified Transmission to [place] [address]; Msg to Pharmacy: start medication the night before her procedure; Last Updated By: Cindi Lizarraga; 01/24/2020 12:08:27 PM Maternal Medicine Referral Evaluation and Treatment Evaluate AND Treat Status: Hold For - Scheduling Requested for: 64Yhz8881 Ordered; For: Morbid obesity; Ordered By: Bayron Mccarty Performed: Due: 04Qfx3854 17-Hydroxyprogesterone, Serum; Status:Active; Requested for:23Vis1449; Perform:Lab Services - Lab To Draw (Blood Test); Due:25Fxc3111;Ordered; For:Screening for STD (sexually transmitted disease); Ordered By:Bayron Mccarty; DHEA Sulfate, Serum; Status:Active; Requested for:24Jan2020; Perform:Lab Services - Lab To Draw (Blood Test); Due:19Nra7581;Ordered; For:Screening for STD (sexually transmitted disease); Ordered By:Bayron Mccarty; Hemoglobin A1C; Status:Active; Requested for:24Jan2020; Perform:Lab Services - Lab To Draw (Blood Test); Due:78Bue8019;Ordered; For:Screening for STD (sexually transmitted disease); Ordered By:Bayron Mccarty; Rubella IgG Antibody; Status:Active; Requested for:24Jan2020; Perform:Lab Services - Lab To Draw (Blood Test); Due:28Byr9398;Ordered; For:Screening for STD (sexually transmitted disease); Ordered By:Bayron Mccarty; Testosterone Free + Total; Status:Active; Requested for:24Jan2020; Perform:Lab Services - Lab To Draw (Blood Test); Due:98Kjv9390;Ordered; For:Screening for STD (sexually transmitted disease); Ordered By:Bayron Mccarty; TSH WITH REFLEX TO FREE T4 IF ABNORMAL; Status:Active; Requested for:24Jan2020; Perform:Lab Services - Lab To Draw (Blood Test); Due:23Jbc6964;Ordered; For:Screening for STD (sexually transmitted disease); Ordered By:Bayron Mccarty; Ultrasound Pelvis Transvaginal; Status:Hold For - Scheduling; Requested for:24Jan2020; Perform:[facility]; Order Comments:will call with menses to schedule; Due:23Apr2020;Ordered; For:Screening for STD (sexually transmitted disease); Ordered By:Bayron Mccarty; Radiologist to Determine Optimal Study : Y What are the patient's signs and symptoms? : fert testing Varicella Zoster IgG Antibody; Status:Active; Requested for:24Jan2020; Perform:Lab Services - Lab To Draw (Blood Test); Due:74Zji3753;Ordered; For:Screening for STD (sexually transmitted disease); Ordered By:Bayron Mccarty; Vitamin D 25-Hydroxy; Status:Active; Requested for:08Azz4775; Perform:Lab Services - Lab To Draw (Blood Test); Due:68Req3163;Ordered; For:Screening for STD (sexually transmitted disease); Ordered By:Bayron Mccarty; Xray Hysterosalpingogram; Status:Hold For - Scheduling; Requested for:96Bjt9143; Perform:[facility]; Order Comments:will call with menses to schedule. schedule between CD5-12. start doxycycline night prior to procedure; Due:47Aaw8521;Ordered; For:Screening for STD (sexually transmitted disease); Ordered By:Bayron Mccarty; Radiologist to Determine Optimal Study : Y What are the patient's signs and symptoms? : fert testing Tobacco Use Screening; Status:Complete; Done: 14Aof0144 Perform:Not Applicable;Ordered; For:SocHx: Never a smoker; Ordered [...] sent to her home pharmacy ([facility] in [place]) [ ] Day 3 FSH, LH, E2 [x] AMH [x] TSH [x] Prolactin [x] Testosterone, DHEAS [x] HgA1C [x] STD screening [x ] Preconceptual screening including Rubella,Varicella, Blood type [ ] Genetic Screen with [facility] - will consider [ ] Take vitamins [x] Return to see SALES CORRESPONDENCE CLERK after workup complete to discuss management plan [x] Education: New infertility packet to be mailed to patient Appointment Duration:. 45 minutes; greater than half of the time was spent on counseling. 1 Amended By: Baryon Mccarty; Jan 24 2020 1:39 PM ESTPatient [...] REFL EXon 01-24-2020 Lab Specimen Source Normal [facility] Comment on above: Performed By: #### S YPHR #### [facility] [address] [place] [address] Performed By: #### Jovany ARZG #### [facility] [address] [place] [address] Performed By: #### R UBIG #### [facility] [address] [place] [address] Vital Signs Date Time Vital Sign Value Performing Clinician Facility 05-26-2024 14:09-0500 Body mass index (BMI) [Ratio] 49.57 kg/m2 Tacho Scottzio DO Work Phone: [facility] 05-26-2024 14:09-0500 Body weight 139.31 kg Tacho Shon DO Work Phone: [facility] 05-26-2024 14:09-0500 Diastolic blood pressure 82 mm[Hg] Tacho Shon DO Work Phone: [facility] 05-26-2024 14:09-0500 Systolic blood pressure 126 mm[Hg] Tacho Shon DO Work Phone: [facility] 05-17-2024 15:36-0500 Body mass index (BMI) [Ratio] 49.41 kg/m2 Tacho Shon DO Work Phone: [facility] 05-17-2024 15:36-0500 Body weight 138.85 kg Tacho Shon DO Work Phone: [facility] 05-17-2024 15:36-0500 Diastolic blood pressure 80 mm[Hg] Tacho Shon DO Work Phone: [facility] 05-17-2024 15:36-0500 Systolic blood pressure 118 mm[Hg] Tacho Shon DO Work Phone: [facility] 05-03-2024 15:11-0500 Body mass index (BMI) [Ratio] 49.09 kg/m2 Mena CARRILLO Work Phone: [facility] 05-03-2024 15:11-0500 Body weight 137.95 kg Mena CARRILLO Work Phone: [facility] 05-03-2024 15:11-0500 Diastolic blood pressure 70 mm[Hg] Mena CARRILLO Work Phone: [facility] 05-03-2024 15:11-0500 Systolic blood pressure 120 mm[Hg] Mena CARRILLO Work Phone: [facility] 04-22-2024 09:51-0500 Body mass index (BMI) [Ratio] 49.45 kg/m2 Tacho Shon DO Work Phone: [facility] 04-22-2024 09:51-0500 Body weight 138.98 kg Tacho Shon DO Work Phone: [facility] 04-22-2024 09:51-0500 Diastolic blood pressure 80 mm[Hg] Tacho Shon DO Work Phone: [facility] 04-22-2024 09:51-0500 Systolic blood pressure 130 mm[Hg] Tacho Shon DO Work Phone: [facility] 04-06-2024 14:10-0500 Body mass index (BMI) [Ratio] 48.58 kg/m2 Mena Marissa CARRILLO Work Phone: [facility] 04-06-2024 14:10-0500 Body weight 136.53 kg Mena Marissa PA Work Phone: [facility] 04-06-2024 14:10-0500 Diastolic blood pressure 80 mm[Hg] Mena Marissa PA Work Phone: [facility] 04-06-2024 14:10-0500 Systolic blood pressure 128 mm[Hg] Mena [place] PA Work Phone: [facility] 03-22-2024 [...] 03-05-2024 23:11-0400 Diastolic blood pressure 78 mm[Hg] [facility] Work Phone: [facility] 03-05-2024 23:11-0400 Heart rate 90 /min [facility] Work Phone: [facility] 03-05-2024 23:11-0400 Respiratory rate 18 /min [facility] Work Phone: [facility] 03-05-2024 23:11-0400 SaO2% (BldA) [Mass fraction] 96 % [facility] Work Phone: [facility] 03-05-2024 23:11-0400 Systolic blood pressure 136 mm[Hg] [facility] Work Phone: [facility] 03-05-2024 19:59-0400 Body temperature 98.1 [degF] [facility] Work Phone: [facility] 03-05-2024 19:58-0400 Body height 167.64 cm [facility] Work Phone: [facility] 03-05-2024 19:58-0400 Body weight 136.55 kg [facility] Work Phone: [facility] 02-26-2024 19:50-0400 Body height 167.64 cm [facility] Work Phone: [facility] 02-26-2024 19:50-0400 Body temperature 97.8 [degF] [facility] Work Phone: [facility] 02-26-2024 19:50-0400 Body weight 136.98 kg [facility] Work Phone: [facility] 02-26-2024 19:50-0400 Diastolic blood pressure 91 mm[Hg] [facility] Work Phone: [facility] 02-26-2024 19:50-0400 Heart rate 103 /min [facility] Work Phone: [facility] 02-26-2024 19:50-0400 Respiratory rate 16 /min [facility] Work Phone: [facility] 02-26-2024 19:50-0400 SaO2% (BldA) [Mass fraction] 96 % Services [employer] Work Phone: [facility] 02-26-2024 19:50-0400 Systolic blood pressure 144 mm[Hg] Services [employer] Work Phone: [facility] 02-23-2024 14:01-0400 Body mass index (BMI) [Ratio] 48.76 kg/m2 Mena CARRILLO Work Phone: [facility] 02-23-2024 14:01-0400 Body weight 137.04 kg Mena Marissa PA Work Phone: [facility] 02-23-2024 14:01-0400 Diastolic blood pressure 82 mm[Hg] Mena Marissa PA Work Phone: [facility] 02-23-2024 14:01-0400 Systolic blood pressure 128 mm[Hg] Mena Garciaey PA Work Phone: [facility] 01-20-2024 13:58-0400 Body mass index (BMI) [Ratio] 48.1 kg/m2 Tacho Shon DO Work Phone: [facility] 01-20-2024 13:58-0400 Body weight 135.17 kg Tacho Shon DO Work Phone: [facility] 01-20-2024 13:58-0400 Diastolic blood pressure 74 mm[Hg] Tacho Shon DO Work Phone: [facility] 01-20-2024 13:58-0400 Systolic blood pressure 122 mm[Hg] Tacho Shon DO Work Phone: [facility] 10-06-2023 17:42-0400 Body height 167.64 cm Services [employer] Work Phone: [facility] 10-06-2023 17:42-0400 Body temperature 98.3 [degF] Services [employer] Work Phone: [facility] 10-06-2023 17:42-0400 Body weight 134 kg Services [employer] Work Phone: [facility] 10-06-2023 17:42-0400 Diastolic blood pressure 94 mm[Hg] Services [facility] Work Phone: [facility] 10-06-2023 17:42-0400 Heart rate 98 /min Services [facility] Work Phone: [facility] 10-06-2023 17:42-0400 Respiratory rate 18 /min Services [facility] Work Phone: [facility] 10-06-2023 17:42-0400 SaO2% (BldA) [Mass fraction] 100 % Services [facility] Work Phone: [facility] 10-06-2023 17:42-0400 Systolic blood pressure 142 mm[Hg] Services [facility] Work Phone: [facility] 09-17-2023 14:22-0400 Body height 167.6 cm Anna Ortiz [facility] 09-17-2023 14:22-0400 Body mass index (BMI) [Ratio] 47.61 kg/m2 Anna Ortiz [facility] 09-17-2023 14:22-0400 Body weight 133.81 kg Anna Ortiz [facility] 08-20-2023 13:05-0400 Body height 167.6 cm Tonya Senior APRN.[employer] PA[employer] Work Phone: [facility] 08-20-2023 13:05-0400 Body weight 133.81 kg Tonya Senior APRN.[employer] PA[employer] Work Phone: [facility] 08-07-2023 15:23-0400 Body height 168.91 cm Services [facility] Work Phone: [facility] 08-07-2023 15:23-0400 Body mass index (BMI) [Ratio] 46.9 kg/m2 Services [facility] Work Phone: [facility] 08-07-2023 15:23-0400 Body weight 133.89 kg Services [facility] Work Phone: [facility] 08-07-2023 15:23-0400 Diastolic blood pressure 83 mm[Hg] Services [employer] Work Phone: [facility] 08-07-2023 15:23-0400 Heart rate 101 /min Services [employer] Work Phone: [facility] 08-07-2023 15:23-0400 Respiratory rate 18 /min Services [employer] Work Phone: [facility] 08-07-2023 15:23-0400 SaO2% (BldA) [Mass fraction] 98 % Services [employer] Phone: [facility] 08-07-2023 15:23-0400 Systolic blood pressure 120 mm[Hg] Services [employer] Phone: [facility] 06-13-2023 11:00-0500 Body height 168.28 cm [employer] Other [facility] 06-13-2023 11:00-0500 Body mass index (BMI) [Ratio] 48.53 kg/m2 [employer] Other [facility] Other 06-13-2023 11:00-0500 Body weight 137.44 kg [employer] Other [facility] Other 06-13-2023 11:00-0500 Body weight 137.43 kg Services [employer] Phone: [facility] 06-13-2023 11:00-0500 Diastolic blood pressure 82 mm[Hg] [employer] Other [facility] 06-13-2023 11:00-0500 Respiratory rate 18 /min [employer] Other [facility] Other 06-13-2023 11:00-0500 SaO2% (BldA) [Mass fraction] 97 % [employer] Other [facility] Other 06-13-2023 11:00-0500 Systolic blood pressure 120 mm[Hg] Nicholas Michaels Other [facility] 01-08-2023 10:45-0400 Body height 168.28 cm Nicholas Michaels Other [facility] Other 01-08-2023 10:45-0400 Body mass index (BMI) [Ratio] 52.89 kg/m2 Nicholas Michaels Other [facility] Other 01-08-2023 10:45-0400 Body weight 149.78 kg Nicholas Michaels Other [facility] Other 01-08-2023 10:45-0400 Diastolic blood pressure 81 mm[Hg] Nicholas Michaels Other [facility] Other 01-08-2023 10:45-0400 Respiratory rate 18 /min Nicholas Michaels Other [facility] Other 01-08-2023 10:45-0400 SaO2% (BldA) [Mass fraction] 97 % Nicholas Michaels Other [facility] Other 01-08-2023 10:45-0400 Systolic blood pressure 122 mm[Hg] Nicholas Michaels Other [facility] Other 06-18-2022 16:57-0500 Body height 167.64 cm Services [employer] Work Phone: [facility] 06-18-2022 16:57-0500 Body weight 157 kg Services [employer] Work Phone: [facility] 06-18-2022 16:56-0500 Body temperature 98.3 [degF] Services [facility] [employer] Phone: [facility] 06-18-2022 16:56-0500 Diastolic blood pressure 67 mm[Hg] Services [facility] Work Phone: [facility] 06-18-2022 16:56-0500 Heart rate 95 /min Services [facility] Work Phone: [facility] 06-18-2022 16:56-0500 Respiratory rate 20 /min Services [facility] Work Phone: [facility] 06-18-2022 16:56-0500 SaO2% (BldA) [Mass fraction] 97 % Services [facility] Work Phone: [facility] 06-18-2022 16:56-0500 Systolic blood pressure 158 mm[Hg] Services [facility] Work Phone: [facility] 12-02-2021 20:26-0400 Body height 167.64 cm Services [facility] Work Phone: [facility] 12-02-2021 20:26-0400 Body temperature 98.2 [degF] Services [facility] Work Phone: [facility] 12-02-2021 20:26-0400 Body weight 144.24 kg Services [facility] Work Phone: [facility] 12-02-2021 20:26-0400 Diastolic blood pressure 89 mm[Hg] Services [facility] Work Phone: [facility] 12-02-2021 20:26-0400 Heart rate 104 /min Services [facility] Work Phone: [facility] 12-02-2021 20:26-0400 Respiratory rate 20 /min Services [facility] Work Phone: [facility] 12-02-2021 20:26-0400 SaO2% (BldA) [Mass fraction] 96 % Services [facility] Work Phone: [facility] 12-02-2021 20:26-0400 Systolic blood pressure 156 mm[Hg] Services [facility] Work Phone: [facility] 06-19-2020 11:10-0500 BMI (Body Mass Index) 46.65 kg/m2 Bayron Mccarty [id number]-[id number] 310 IVF Work Phone: 06-19-2020 11:10-0500 Body weight 131.09 kg Bayron Mccarty [id number]-[id number] 310 IVF Work Phone: 06-19-2020 11:10-0500 BSA (Body Surface Area) 2.34 m2 Bayron Mccarty QY-ZBKFX-Yzryuo 310 IVF Work Phone: 06-19-2020 11:10-0500 Height 167.64 cm Bayron Mccarty YN-OREXB-Ozuynp 310 IVF Work Phone: 06-19-2020 11:10-0500 1 1 Bayron Mccarty HW-KJCOT-Vccund 310 IVF Work Phone: Comment on above: 06-19-2020 11:10-0500 0 1 Bayron Mccarty NL-[id number] 310 IVF Work Phone: Comment on above: Para Pain Scale Encounters Encounter Date Encounter Type Care Provider Facility Start: 06-02-2024 End: 06-02-2024 Clinisync Result Encounter Tacho Shon DO Work Phone: [facility] Unsolicited Start: 06-02-2024 End: 06-02-2024 Clinisync Result Encounter Tacho Shon DO Work Phone: [facility] Unsolicited Start: 05-31-2024 End: 05-31-2024 Clinisync Result Encounter Tacho Shon DO Work Phone: [facility] Unsolicited Start: 05-31-2024 End: 05-31-2024 Clinisync Result Encounter Tacho Shon DO Work Phone: [facility] Unsolicited Start: 05-26-2024 End: 05-26-2024 Office outpatient visit [...] Departed Referred Services Family [facility] Work Phone: [facility] Start: 05-17-2024 End: 05-17-2024 Office outpatient visit 15 minutes Tacho Shon DO Work Phone: [facility] Comment on above: 37 weeks gestation o f ; Third trimester Start: 05-17-2024 End: 05-17-2024 ambulatory Services [facility] Work Phone: [facility] Work Phone: Start: 05-17-2024 End: 05-17-2024 Bamboo flowsheet Tacho Shon DO Work Phone: [facility] Start: 05-17-2024 End: 05-22-2024 Bamboo flowsheet Tacho Shon DO Work Phone: [facility] Start: 05-17-2024 End: 05-22-2024 Clinisync Result Encounter Tacho Shon DO Work Phone: [facility] Unsolicited Start: 05-03-2024 End: 05-03-2024 Office outpatient visit 15 minutes Mena CARRILLO Work Phone: [facility] Comment on above: 35 weeks gestation o f ; Third trimester Start: 05-03-2024 End: 05-03-2024 ambulatory MENA ANN Not Available Start: 05-03-2024 End: 05-03-2024 Bamboo flowsheet Mena CARRILLO Work Phone: [facility] Start: 05-03-2024 End: 05-03-2024 Bamboo flowsheet Mena CARRILLO Work Phone: [facility] Start: 05-03-2024 End: 05-03-2024 Clinisync Result Encounter Tacho Shon DO Work Phone: [facility] External Department Unsolicited Start: 04-27-2024 End: 04-27-2024 ambulatory [facility] Start: 04-22-2024 End: 04-22-2024 Bamboo flowsheet Tacho Shon DO Work Phone: [facility] Start: 04-22-2024 End: 04-22-2024 Bamboo flowsheet Tacho Shon DO Work Phone: [facility] Start: 04-22-2024 End: 04-22-2024 Office outpatient visit 15 minutes Tacho Shon DO Work Phone: [facility] Comment on above: 33 weeks gestation o f ; Third trimester ; H/O premature delivery; Thyroid disease (CMS/HCC); H/O pre-eclampsia in prior , currently Start: 04-22-2024 End: 04-22-2024 ambulatory TACHO SHON Not Available Start: 04-06-2024 End: 04-06-2024 Bamboo flowsheet Mena CARRILLO Work Phone: [facility] Start: 04-06-2024 End: 04-06-2024 Bamboo flowsheet Mena CARRILLO Work Phone: [facility] Start: 04-06-2024 End: 04-06-2024 Office outpatient visit 15 minutes Mena CARRILLO Work Phone: [facility] Comment on above: Third trimester preg rosette; 31 weeks gestation of ; H/O premature delivery Start: 04-06-2024 End: 04-06-2024 ambulatory MENA ANN Not Available Start: 03-30-2024 End: 03-30-2024 ambulatory TACHO R SHON [facility] Start: 03-22-2024 End: 03-22-2024 Bamboo flowsheet Tacho Shon DO Work Phone: [facility] Start: 03-22-2024 End: 03-22-2024 Bamboo flowsheet Tacho Shon DO Work Phone: [facility] Start: 03-22-2024 End: 03-22-2024 Office outpatient visit 15 minutes Tacho Shon DO Work Phone: [facility] Comment on above: Third trimester preg rosette; 29 weeks gestation of Start: 03-22-2024 End: 03-22-2024 ambulatory TACHO SHON Not Available Start: 03-19-2024 End: 03-19-2024 Clinisync Result Encounter Mena CARRILLO Work Phone: [facility] External Department Unsolicited Start: 03-19-2024 End: 03-19-2024 Clinisync Result Encounter Mena CARRILLO Work Phone: [facility] External Department Unsolicited Start: 03-05-2024 End: 03-05-2024 Emergency department patient visit Services Family [facility] Work Phone: [facility] Work Phone: Start: 03-01-2024 End: 03-01-2024 Orders Only Veda Hayes RN Maternal- Medic ine at [facility] Comment on above: Encounter for follow -up ultrasound of anatomy (Primary Dx); History of pre-eclampsia in prior , currently ; History of delivery, currently ; Obesity affecting in second trimester, unspecified obesity type Start: 02-26-2024 End: 02-26-2024 Emergency department patient visit Services Family [facility] Work Phone: [facility] Work Phone: Start: 02-23-2024 [...] Not Available Start: 02-17-2024 End: 02-17-2024 ambulatory [facility] Start: 01-26-2024 End: 01-26-2024 Clinisync Result Encounter Tacho Shon DO Work Phone: [facility] External Department Unsolicited Start: 01-26-2024 End: 01-26-2024 Clinisync Result Encounter Tacho Shon DO Work Phone: [facility] External Department Unsolicited Start: 01-20-2024 End: 01-20-2024 Office outpatient visit 15 minutes Tacho Shon DO Work Phone: [facility] Comment on above: Second trimester pre gnancy Start: 01-20-2024 End: 01-20-2024 ambulatory TACHO SHON Not Available Start: 01-19-2024 End: 01-19-2024 ambulatory [facility] Start: 12-23-2023 End: 12-23-2023 ambulatory MENA ANN Not Available Start: 11-25-2023 End: 11-25-2023 ambulatory TACHO SHON Not Available Start: 10-30-2023 End: 10-30-2023 ambulatory TACOH MENENDEZ Not Available Start: 10-09-2023 End: 10-09-2023 ambulatory LATONIA GREENE Facility:[facility] Start: 10-06-2023 End: 10-06-2023 Emergency department patient visit Services [facility] Work Phone: [facility] Work Phone: Start: 09-17-2023 End: 09-17-2023 ambulatory ANNA ANGEL Facility:[facility] Start: 09-17-2023 End: 09-17-2023 Nutrition therapy Anna Angel BAÑUELOS Nutrition Therapy Comment on above: Obesity, Class III, BMI 40-49.9 (morbid obesity) (HCC) (Primary Dx); Dietary counseling Start: 09-17-2023 End: 09-17-2023 Telemedicine consultation with patient Anna Ortiz [facility] Nutrition Therapy Start: 09-15-[address] [facility] surgery center Tonya Senior APRN.[employer] Work Phone: General Surgery Comment on above: Results Start: 09-15-2023 E-mail encounter fro m caregiver Tonya Senior MARINE RESOURCE ECONOMIST.[employer] Work Phone: General Surgery Start: 09-11-2023 Telephone encounter Tonya Senior APRN.[employer] Work Phone: General Surgery Comment on above: Results Start: 09-08-2023 End: 09-08-2023 ambulatory TONYA SENIOR Facility:[facility] Start: 09-05-2023 End: 09-05-2023 ambulatory TONYA SENIOR Facility:[facility] Start: 09-01-2023 End: 09-02-2023 ambulatory LATONIA GREENE Facility:[facility] Start: 09-01-2023 End: 09-01-2023 Admission to same day surgery center Latonia Greene PhD Work Phone: General Surgery BMI PSYL Comment on above: NO SHOW (Primary Dx) Start: 09-01-2023 End: 09-01-2023 Telemedicine consultation with patient Latonia Greene PhD Work Phone: General Surgery BMI PSYL Start: 08-20-[address] [facility] surgery center Tonya Ron Parrish IBARRA.[employer] Work Phone: General Surgery Comment on above: Welcome to Bariatric Surgery Start: 08-20-2023 E-mail encounter dena torres caregiver Tonya Ron Senior APRN.[employer] Work Phone: [place] [id number] Start: 08-20-2023 End: 08-20-2023 ambulatory Tonya Ron Parrish IBARRA.[employer] Work Phone: General Surgery Comment on above: Body mass index (BMI ) of 50-59.9 in adult (HCC) (Primary Dx); Angel's thyroiditis; High blood cholesterol Start: 08-20-2023 End: 08-20-2023 Telemedicine consultation with patient Tonya K Parrish IBARRA.[employer] Work Phone: [facility] Start: 08-07-2023 End: 08-07-2023 ambulatory Services Family [facility] Work Phone: [facility] Work Phone: Start: 08-07-2023 End: 08-07-2023 Patient encounter procedure Services Family [facility] Work Phone: [facility] Work Phone: Start: 06-13-2023 Follow-up encounter Nicholas Michaels [facility] Start: 06-13-2023 Registered Recurring Services Family Health Work Phone: [facility] Work Phone: Start: 06-13-2023 End: 06-13-2023 ambulatory Services [employer] Other Start: 06-13-2023 End: 06-13-2023 Patient encounter procedure Services Family [facility] Work Phone: [facility]- Start: 01-08-2023 End: 01-08-2023 ambulatory Nicholas Michaels Other [employer] Other Start: 01-08-2023 Nutrition therapy Nicholas Michaels [facility] Start: 06-18-2022 End: 06-18-2022 Emergency department patient visit Services [employer] [facility] Work Phone: [facility] Work Phone: Start: 06-03-2022 End: 06-03-[address] TACHO MENENDEZ Facility: Start: 12-02-2021 End: 12-02-2021 Emergency department patient visit Services [employer] [facility] Work Phone: [facility] Start: 07-08-2020 Patient encounter procedure Bayron Mccarty EA-VZAJT-Chmqrv 310 IVF Work Phone: Start: 07-05-2020 Patient encounter procedure Bayron Mccarty LD-CLZXM-Zmkvpr 310 IVF Work Phone: Start: 06-19-2020 Patient encounter procedure Bayron Mccarty BE-XBWMM-Wqxzcw 310 IVF Work Phone: Start: 04-14-2020 Patient encounter procedure Bayron Mccarty SR-POFSR-Gknxqn 310 IVF Work Phone: Start: 03-28-2020 Patient encounter procedure Bayron Mccarty SM-GYAPE-Kgdiqb 310 IVF Work Phone: Start: 2020 Patient encounter procedure Bayron Mccarty SK-PFXXH-Phrxrf 310 IVF Work Phone: Start: 01-24-2020 Patient encounter procedure Bayron Mccarty IR-CMLML-Kjbfjq 310 IVF Work Phone: Start: 08-01-2017 End: 08-02-2017 Ambulatory Agustin Patton Facility:[id number] Start: 07-14-2017 End: 07-15-2017 Ambulatory Agustin Patton Facility:[id number] Procedures Date Procedure Procedure Detail Performing Clinician Start: 06-02-2024 ALL CBC WITH AUTO DIFF Tacho Menendez DO Work Phone: Start: 05-31-2024 HM[facility] CBC WITH PLATEL ET NO DIFFERENTIAL Tacho Shon DO Work Phone: Start: 05-25-2024 ALL CBC WITH AUTO DIFF [...] Start: 03-05-2024 Plain chest X-ray Servi malina [employer] [facility] Work Phone: Start: 03-05-2024 Respiratory Panel (PCR) Services [employer] [facility] Work Phone: Start: 03-05-2024 Respiratory Panel (PCR) Services [employer] [facility] Work Phone: Start: 03-05-2024 Streptococcus pyogen es antigen assay Services [employer] [facility] Work Phone: Start: 02-26-2024 Streptococcus pyogen es antigen assay Services [employer] [facility] Work Phone: Start: 02-23-2024 Urnls dip stick/tabl et rgnt non-auto w/o micrscp Mena CARRILLO Work Phone: Start: 01-26-2024 ALL THYROID STIM HORMONE Tacho Menendez DO Work Phone: Start: 01-20-2024 Urnls dip stick/tabl et rgnt non-auto w/o micrscp Tcaho Menendez DO Work Phone: Start: 12-23-2023 Microscopic observat ion [Identifier] in Cervix by Cyto stain Tacho Menendez DO Work Phone: Start: 07-06-2020 Antibody screen Comment on above: Performed By: #### T +S #### [facility] [address] [place] [address] Start: 07-05-2020 IO Ultrasound, limit ed pelvic, follicle monitoring Bayron Mccarty Start: 06-26-2020 IO Ultrasound, limit ed pelvic, follicle monitoring Bayron Mccarty Start: 05-10-2020 Assay of progesterone J oslissette Mccarty Adenoid excision Bayron wallace Cholecystectomy Bayron Chen ey SARS Antigen (LFIA) Services [facility] Work Phone: Plan of Treatment Date Care Activity Detail Author Start: 12-22-2028 Screening for malign ant neoplasm of cervix [facility] Start: 12-22-2026 Screening for malign ant neoplasm of cervix Pap Smear [employer] Start: 03-01-2025 End: 03-01-2025 US MFM with or without consult US MFM with or without consult Imaging Routine Encounter for follow-up ultrasound of anatomy History of pre-eclampsia in prior , currently History of delivery, currently Obesity affecting in second trimester, unspecified obesity type Expected: 03/01/2025 (Approximate), Expires: 03/01/2025 [employer] Work Phone: Comment on above: Expected: 03/01/2025 (Approximate), Expires: 03/01/2025 Start: 01-18-2025 Adult BMI Screening [facility] Start: 01-18-2025 Tobacco Screening [facility] Start: 05-27-2024 End: 05-27-2024 Patient encounter procedure 05/27/2024 10:20 AM EST Routine [facility] [address] [place] [phone] Tcaho Menendez DO [address] [place] [address] [facility] Start: 05-26-2024 End: 05-26-2024 Patient encounter procedure [facility] Comment on above: Arrived Start: 05-17-2024 Following clinical pathway protocol [facility] Start: 05-17-2024 End: 05-17-2024 Patient encounter procedure [facility] Comment on above: Arrived Start: 05-17-2024 End: 05-17-2025 CULTURE, GROUP B STREP WITH SUSCEPTIBLITY CULTURE, GROUP B STREP WITH SUSCEPTIBLITY Lab Routine Third trimester Expected: 05/17/2024, Expires: 05/17/2025 [facility] Work Phone: Comment on above: Expected: 05/17/2024 , Expires: 05/17/2025 Start: 05-17-2024 Group B Streptococcu s Culture Group B Streptococcus Culture [facility] Start: 05-03-2024 End: 05-03-2024 Patient encounter procedure 05/03/2024 2:50 PM EST Routine [facility] [address] [place] [phone] Mena Ann PA [address] [place] [address] [facility] Start: 04-22-2024 End: 04-22-2025 [...] Routine [facility] [address] [place] [address] Mena Ann PA [address] [place], [place] [id number] [facility] Start: 03-30-2024 End: 03-30-2024 Patient encounter procedure 03/30/2024 2:45 PM EST Appointment [facility] [address] [place] [phone] [facility] Start: 03-22-2024 End: 03-22-2024 Patient encounter procedure 03/22/2024 1:50 PM EST Routine [facility] [address] [place] [address] Tacho Menendez DO [address] [place] [address] [facility] Start: 03-22-2024 End: 03-22-2024 Professional / ancillary services management 03/22/2024 1:00 PM EST Ancillary Procedure [facility] [address] [place] [address] [facility] Start: 03-16-2024 End: 03-16-2024 Patient encounter procedure 03/16/2024 1:30 PM EST Routine [facility] [address] [place] [phone] Tacho Menendez DO [address] [place] [address] [facility] Start: 02-23-2024 End: 02-22-2025 [...] mellitus screening Expected: 02/23/2024 (Approximate), Expires: 02/22/2025 [facility] Healthcare Comment on above: Expected: 02/23/2024 (Approximate), Expires: 02/22/2025 Start: 02-23-2024 End: 02-22-2025 US for US OB SCAN FOR GROWTH Imaging Routine size inconsistent with dates H/O premature delivery Expected: 02/23/2024 (Approximate), Expires: 02/22/2025 [facility] Healthcare Comment on above: Expected: 02/23/2024 (Approximate), Expires: 02/22/2025 Start: 02-23-2024 End: 02-23-2024 Patient encounter procedure 02/23/2024 1:40 PM EDT Routine [facility] [address] [facility] [place] [phone] Mena Ann PA [address] [place], [place] [id number] Arrived [facility] Comment on above: Arrived Start: 02-18-2024 End: 02-18-2024 Patient encounter procedure 02/18/2024 2:30 PM EDT Routine [facility] [address] [place] [address] Mena Ann PA [address] [place] [address] [place] [address] [facility] Start: 01-11-2024 COVID-19 Vaccine ( season) COVID-19 Vaccine () [facility] Start: 01-11-2024 Influenza vaccination N [facility] Start: 09-17-2023 End: 09-17-2023 Nutrition therapy 09/17/2023 2:30 PM EDT [facility] [address] [address] Anna Ortiz, SARMAD [address] [place], [place] [id number] Red/Davis/0 Diet/[place] [facility] Comment on above: Red/Davis/0 Diet/ [place] Start: 09-12-2023 End: 09-12-2023 Admission to same day surgery center 09/12/2023 3:30 PM EDT [facility] Surgery [address] [id number] Joo Bradley MD [address], [place] [id number] Red/Kirk/0 Diet/[place] General Surgery Comment on above: Red/Kirk/0 Diet/Anth em Start: 09-05-2023 End: 09-05-2023 ambulatory 09/05/2023 11:45 AM EDT Results Only [facility] [address] [place] [address] [place] [address] [facility] Start: 08-20-2023 End: 11-19-2023 25-hydroxyvitamin D3 [Mass/volume] in Serum or Plasma VITAMIN D 25 HYDROXY Lab Routine Body mass index (BMI) of 50-59.9 in adult (HCC) Expected: 08/20/2023, Expires: 11/19/2023 [facility] Work Phone: Comment on above: Expected: 08/20/2023 , Expires: 11/19/2023 Start: 08-20-2023 End: 11-19-2023 CBC W Auto Differential panel - Blood COMPLETE BLOOD COUNT AND DIFFERENTIAL Lab Routine Body mass index (BMI) of 50-59.9 in adult ([facility]) Expected: 08/20/2023, Expires: 11/19/2023 [facility] Work Phone: Comment on above: Expected: 08/20/2023 , Expires: 11/19/2023 Start: 08-20-2023 End: 11-19-2023 Cobalamin (Vitamin B12) [Mass/volume] in Serum or Plasma VITAMIN B12 Lab Routine Body mass index (BMI) of 50-59.9 in adult ([facility]) Expected: 08/20/2023, Expires: 11/19/2023 [facility] Work Phone: Comment on above: Expected: 08/20/2023 , Expires: 11/19/2023 Start: 08-20-2023 End: 11-19-2023 Comprehensive metabolic 2000 panel - Serum or Plasma COMPREHENSIVE METABOLIC PANEL Lab Routine High blood cholesterol Body mass index (BMI) of 50-59.9 in adult ([facility]) Expected: 08/20/2023, Expires: 11/19/2023 [facility] Work Phone: Comment on above: Expected: 08/20/2023 , Expires: 11/19/2023 Start: 08-20-2023 End: 11-19-2023 Ferritin [Mass/volume] in Serum or Plasma FERRITIN Lab Routine Body mass index (BMI) of 50-59.9 in adult ([facility]) Expected: 08/20/2023, Expires: 11/19/2023 [facility] Work Phone: Comment on above: Expected: 08/20/2023 , Expires: 11/19/2023 Start: 08-20-2023 End: 11-19-2023 Folate [Mass/volume] in Serum or Plasma FOLATE, SERUM Lab Routine Body mass index (BMI) of 50-59.9 in adult ([facility]) Expected: 08/20/2023, Expires: 11/19/2023 [facility] Work Phone: Comment on above: Expected: 08/20/2023 , Expires: 11/19/2023 Start: 08-20-2023 End: 11-19-2023 Helicobacter pylori IgG Ab [Presence] in Serum or Plasma by Immunoassay H PYLORI IGG AB Lab Routine Body mass index (BMI) of 50-59.9 in adult ([facility]) Expected: 08/20/2023, Expires: 11/19/2023 [facility] Work Phone: Comment on above: Expected: 08/20/2023 , Expires: 11/19/2023 Start: 08-20-2023 End: 11-19-2023 Hemoglobin A1c in Blood HEMOGLOBIN A1C Lab Routine Body mass index (BMI) of 50-59.9 in adult ([facility]) Expected: 08/20/2023, Expires: 11/19/2023 [facility] Work Phone: Comment on above: Expected: 08/20/2023 , Expires: 11/19/2023 Start: 08-20-2023 End: 11-19-2023 Iron and Iron binding capacity panel - Serum or Plasma IRON AND TIBC Lab Routine Body mass index (BMI) of 50-59.9 in adult ([facility]) Expected: 08/20/2023, Expires: 11/19/2023 [facility] Work Phone: Comment on above: Expected: 08/20/2023 , Expires: 11/19/2023 Start: 08-20-2023 End: 11-19-2023 Lipid 1996 panel - Serum or Plasma LIPID PANEL BASIC Lab Routine High blood cholesterol Body mass index (BMI) of 50-59.9 in adult ([facility]) Expected: 08/20/2023, Expires: 11/19/2023 [facility] Work Phone: Comment on above: Expected: 08/20/2023 , Expires: 11/19/2023 Start: 08-20-2023 End: 11-19-2023 Natriuretic peptide.B prohormone N-Terminal [Mass/volume] in Serum or Plasma NT PRO BNP Lab Routine Body mass index (BMI) of 50-59.9 in adult ([facility]) Expected: 08/20/2023, Expires: 11/19/2023 [facility] Work Phone: Comment on above: Expected: 08/20/2023 , Expires: 11/19/2023 Start: 08-20-2023 End: 11-19-2023 NICOTINE & METAB, UR NICOTINE & METAB, UR Lab Routine Body mass index (BMI) of 50-59.9 in adult ([facility]) Expected: 08/20/2023, Expires: 11/19/2023 [facility] Work Phone: Comment on above: Expected: 08/20/2023 , Expires: 11/19/2023 Start: 08-20-2023 End: 11-19-2023 Thyrotropin [Units/volume] in Serum or Plasma THYROID STIMULATING HORMONE Lab Routine Angel's thyroiditis Body mass index (BMI) of 50-59.9 in adult ([facility]) Expected: 08/20/2023, Expires: 11/19/2023 [facility] Work Phone: Comment on above: Expected: 08/20/2023 , Expires: 11/19/2023 Start: 08-20-2023 End: 11-19-2023 TOXICOLOGY SCREEN, ROUTINE URINE TOXICOLOGY SCREEN, ROUTINE URINE Lab Routine Body mass index (BMI) of 50-59.9 in adult ([facility]) Expected: 08/20/2023, Expires: 11/19/2023 [facility] Work Phone: Comment on above: Expected: 08/20/2023 , Expires: 11/19/2023 Start: 08-20-2023 End: 11-19-2023 VITAMIN B1 (THIAMINE), WHOLE BLOOD VITAMIN B1 (THIAMINE), WHOLE BLOOD Lab Routine Body mass index (BMI) of 50-59.9 in adult ([facility]) Expected: 08/20/2023, Expires: 11/19/2023 [facility] Work Phone: Comment on above: Expected: 08/20/2023 , Expires: 11/19/2023 Start: 05-12-2023 Behavioral Health Screening Behavioral Health Screening [facility] Start: 01-10-2023 Covid-19 Vaccine ( season) Covid-19 Vaccine ( season) [facility] Start: 12-02-2021 Plain chest X-ray XR chest 1V portab le [facility] Start: 12-02-2021 XR Chest Single view [facility] Work Phone: Start: 2021 Screening for malign ant neoplasm of cervix HPV Testing [facility] Start: 2012 Screening for malign ant neoplasm of cervix Pap Testing [facility] Start: 2010 Hepatitis B Vaccine (1 of 3 - 19+ 3-dose series) Hepatitis B Vaccine (1 of 3 - 19+ 3-dose series) [facility] Start: 2009 Adult BMI Follow Up Plan Adult BMI Follow Up Plan [facility] Start: 2009 HIV screening HIV Screening [facility] Start: 2003 [facility]: 2002 DTaP,Tdap and Td Vaccines (6 - Tdap) DTaP,Tdap and Td Vaccines (6 - Tdap) [facility] Start: 2002 Urine microalbumin profile DTaP,Tdap,Td Vaccine (6 - Tdap) [facility] End: 08-19-2024 ECG COMPLETE ECG COMPLETE ECG Routine Body mass index (BMI) of 50-59.9 in adult (HCC) 1 Occurrences starting 08/20/2023 until 08/19/2024 [facility] Work Phone: Comment on above: 1 Occurrences starti 08/20/2023 until 08/19/2024 Patient Education [facility] Work Phone: Patient referral [facility] Work Phone: Thyrotropin [Units/volume] in Serum or Plasma TSH Lab Routine Thyroid disease (CMS/HCC) Ordered: 04/22/2024 [facility] Comment on above: Ordered: 04/22/2024 End: 09-18-2024 US Abdomen RUQ US ABD RIGHT UPPER QUADRANT Radiology Routine Body mass index (BMI) of 50-59.9 in adult (HCC) 1 Occurrences starting 08/20/2023 until 09/18/2024 [facility] Work Phone: Comment on above: 1 Occurrences starti ng 08/20/2023 until 09/18/2024 End: 09-18-2024 XR Chest PA and Lateral XR CHEST 2V FRONTAL/LAT Radiology Routine Body mass index (BMI) of 50-59.9 in adult (HCC) 1 Occurrences starting 08/20/2023 until 09/18/2024 [facility] Work Phone: Comment on above: 1 Occurrences starti ng 08/20/2023 until 09/18/2024 [id number] 310 [facility] Work Phone: [facility] NEGATED: Highlighted row has been ruled out! Planned Goals not documented [id number] 310 [facility] Work Phone: Immunizations Immunization Date Immunization Notes Care Provider Sonia miramontes 03-11-2023 influenza virus vacc ine, unspecified formulation Tacho Menendez DO Work Phone: [facility] Payers Date Payer Category Payer Self-pay [id number] 2022 Medicaid [id number] 2022 Medicaid [id number] [id number] 1991 Unknown [id number] 2.16.840.1.865400.3.579.2.59 3 1991 Unknown [id number] 2.16.840.1.035414.3.579.2.12 86 1991 Unknown [id number] 2.16.840.1.850442.3.579.2.12 86 1991 Unknown [id number] 2.16.840.1.274550.3.579.2.12 86 1991 Unknown [id number] 2.16.840.1.405486.3.579.2.12 86 1991 Unknown [id number] 2.16.840.1.935211.3.579.2.12 86 1991 Unknown [id number] 2.16.840.1.011382.3.579.2.12 59 1991 Unknown [id number] 2.16.840.1.983897.3.579.2.12 59 1991 Unknown [id number] 2.16.840.1.998973.3.579.2.12 59 1991 Unknown [id number] 2.16.840.1.279340.3.579.2.12 59 1991 Unknown [id number] 2.16.840.1.132170.3.579.2.12 59 1991 Unknown [id number] 2.16.840.1.034135.3.579.2.12 59 1991 Unknown [id number] 2.16.840.1.044093.3.579.2.12 59 1991 Unknown [id number] 2.16.840.1.197619.3.579.2.12 59 1991 Unknown [id number] 2.16.840.1.811050.3.579.2.12 59 1991 Unknown [id number] 2.16.840.1.102898.3.579.2.12 59 1991 Unknown [id number] 2.16.840.1.268192.3.579.2.12 59 1959 Medicaid [id number] Private Health Insurance [facility] [id number] Unknown [id number] Unknown Regular Insurance [id number] Unknown [employer] [id number] Unknown Regular Auto/Medical [id number] Unknown [id number] 2.16.840.1.773978.3.579.2.53 1 Unknown [id number] 2.16.840.1.702968.3.579.2.53 1 Unknown [id number] 2.16.840.1.517603.3.579.2.53 1 Unknown [id number] 2.16.840.1.294048.3.579.2.53 1 Unknown [id number] 2.16.840.1.916880.3.579.2.53 1 Social History Date Type Detail Facility Start: 12-02-2021 End: 05-17-2023 Tobacco smoking status NHIS Never smoked tobacco (finding) [facility] Start: 1990 Sex Assigned At Female F [facility] Start: 08-20-2023 End: 10-30-2023 Sex Assigned At [facility] Other Start: 05-17-2023 End: 08-20-2023 Tobacco use and exposure Smokeless tobacco non-user [facility] Work Phone: Start: 08-20-2023 End: 05-26-2024 Alcohol intake Current drinker of alcohol (finding) [facility] Start: 08-20-2023 End: 10-30-[address] [facility] National Score (1-100), lower number is lower risk 86 [facility] Start: 08-20-2023 [facility] Start: 1990 Sex Assigned At Not on file [facility] Start: 08-26-2023 Gender identity Identifies as female gender (finding) [facility] Start: 08-26-2023 Sexual orientation Heterosexual (fin kayleen) [facility] Start: 09-14-2023 [facility] How often to you hav e a [...] Start: 01-19-2024 Alcoholic beverage intake Ex-drinker (finding) [facility] Start: 12-13-2014 End: 05-19-2024 Sex Female (finding) [facility] NEGATED: Highlighted row - - [id number] 310 [facility] Work Phone: Functional Status Date Assessment Result Facility NEGATED: Highlighted row Functional performance Functional status health issues are not documented Disease [id number] 310 [facility] Work Phone: Mental Status Date Assessment Result Facility NEGATED: Highlighted row Cognitive function [Interpretation] Cognitive status health issues are not documented Disease [id number] 310 [facility] Work Phone: Clinical Notes 01-08-2023 to 05-26-2024 Priscilla Fernandez LPN - 05/26/2024 2:10 PM Craig Mcbride [employer] - 05/17/2024 3:10 PM GERARDO Hunter - 05/03/2024 2:50 PM Fawad Fernandez LPN - 04/22/2024 9:40 AM ESTPatient Instructions Note Date & Type Note Facility 05-26-2024 History of Presen t illness Narrative Reason for Appointment: Patient ID: aJleesa Arrieta is a 34 y.o. female who [...] 06/2019 OTHER SURGICAL HISTORY 2020 IUI 07/10/20 [facility] SALPINGECTOMY Left 2012 ectopic REVIEW [...] nursing note reviewed. Exam conducted with a tube room cashier present. Vitals: Estimated body mass index is [...] in this encounter [facility] 05-17-2024 History of Presen t illness Narrative [...] 06/2019 OTHER SURGICAL HISTORY 2020 IUI 07/10/20 [facility] SALPINGECTOMY Left 2011 ectopic [...] nursing note reviewed. Exam conducted with a tube room cashier present. Vitals: Estimated body mass index is [...] in this encounter [facility] 05-03-2024 History of Presen t illness Narrative [...] 06/2019 OTHER SURGICAL HISTORY 2020 IUI 07/10/20 [facility] SALPINGECTOMY Left 2011 ectopic [...] in this encounter [facility] 04-22-2024 History of Presen t illness Narrative [...] Morbid obesity with BMI of 50.0-59.9, adult ([facility]/HCC) Vaginal delivery HISTORY PAST MEDICAL HISTORY SOCIAL HISTORY Past Medical History: Diagnosis Date Abdominal pain Breast pain, right Cholelithiasis Encounter for cervical smear to confirm findings of recent normal smear following initial abnormal smear 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) Morbid obesity with BMI of 50.0-59.9, adult ([facility]) Vaginal delivery Social History Tobacco [...] 06/2019 OTHER SURGICAL HISTORY 2020 IUI 07/10/20 [facility] SALPINGECTOMY Left 2011 ectopic [...] nursing note reviewed. Exam conducted with a tube room cashier present. Vitals: Estimated body mass index is [...] in this encounter [facility] 04-06-2024 History of Presen t illness Narrative [...] 06/2019 OTHER SURGICAL HISTORY 2020 IUI 07/10/20 [facility] SALPINGECTOMY Left 2011 ectopic [...] Morbid obesity with BMI of 50.0-59.9, adult (CMS/[facility]) Vaginal delivery Social History Tobacco [...] @ age 6 or 7 CHOLECYSTECTOMY 07/20/2019 ([place]) ERCP 06/2019 OTHER SURGICAL HISTORY 2020 IUI 07/10/20 [facility] SALPINGECTOMY Left 2011 ectopic [...] nursing note reviewed. Exam conducted with a tube room cashier present. Vitals: Estimated body mass index is [...] Morbid obesity with BMI of 50.0-59.9, adult ([facility]) Vaginal delivery Social History Tobacco [...] 06/2019 OTHER SURGICAL HISTORY 2020 IUI 07/10/20 [facility] SALPINGECTOMY Left 2011 ectopic [...] nursing note reviewed. Exam conducted with a tube room cashier present. Vitals: Estimated body mass index is [...] in this encounter [facility] 01-20-2024 History of Presen t illness Narrative [...] 06/2019 OTHER SURGICAL HISTORY 2020 IUI 07/10/20 [facility] SALPINGECTOMY Left 2011 ectopic [...] nursing note reviewed. Exam conducted with a tube room cashier present. Vitals: Estimated body mass index is [...] notified. Pt has follow up appt at [facility] in four weeks. Pt to return to office in four weeks for scheduled OB appt. Documented by Priscilla Fernandez LPN on behalf of: Tacho Menendez DO documented in this encounter [facility] 10-09-2023 Note HNO ID: [id number] Author: LATONIA GREENE, PhD Service: ? Author Type: Psychologist Type: Progress Notes Filed: 10/17/2023 11:09 Note Text: [facility] BARIATRIC SURGERY BEHAVIORAL HEALTH EVALUATION BMI Surgical Pathway Visit type: Psychology Visit DATE OF SERVICE: October 09, 2023 TIME OF SERVICE: 1:00 PM - 2:00 PM COST CENTER: [facility] CPT CODE: - [id number] Virtual Psych Diagnostic Eval BILLING CODE: ENDO PSYL MAIN Jerel DATE OF FIRST SERVICE THIS CYCLE: October 09, 2023 SESSION #: 1 I have communicated my name and active licensure. The patient's identity and physical location (see below) were verified at the time of this visit. Either the patient or their legal sales representative advertising has been informed of the risks and benefits of -- and alternatives to -- treatment through a remote evaluation and consents to proceed with the evaluation remotely. This evaluation is NOT intended for forensic, disability or child custody purposes. The patient e-signed a copy of the consent form via [employer] and the [facility] insurance benefits, fees for service, emergency [...] case of emergency and/or disconnection. [address] [place] [address] ([facility], was mother) Alternate Surveyor Rod Helper Bibi Arrieta (Mother) [phone] (Home Phone) Patient identified the following plan to follow in case of emergency: Go to emergency room (nearest is [facility]) or call 911. IDENTIFYING INFORMATION: [...] pt has l (more content not included)... [facility] 09-22-2023 Telephone encounter Note Can not schedule patient as there is already a patient scheduled for that day and time. Please advise. Thanks Meme Castrejon [facility] 09-22-2023 Telephone encounter Note ----- Message from Anna Ortiz RD sent at 09/17/2023 3:17 PM EDT ----- Regarding: virtual follow up Please schedule for a virtual up 10/16 at 1. The patient is aware, no call needed. Thank you! Anna [facility] 09-22-2023 Miscellaneous Notes Can not schedule [...] Tonya Senior APRN.MERON documented in this encounter [facility] 09-17-[address] - 09/17/2023 3:12 PM EDT 1. Read Nutritional Guidelines Section of Your Guide to Surgery by next session [email or web address]/ [email or web address]?la=[email or web address] 2. Do [...] full-liquid diet. Examples: Slim Fast Advanced Nutrition [place] Breakfast Essentials Light Start Drink mixed with [...] in the AM, 2 in the PM) www.bariatricfusion.[employer] - [employer]: 1 Bariatric Multivitamin and Calcium Citrate (total of 1547-5273 mg/day) * take calcium citrate separately from Multivitamin with iron at least 2 hours apart and 4 hours apart from additional calcium www.OKDJ.fm.[employer] - Bariatric Choice: 4 Complete Multivitamins (chewables) per day Www.bariatricchoConcorde Solutions.[employer] - Bariatric Advantage: 2 Multivitamins and 3 Calcium Citrate Chewables per day * take calcium citrate separately from Multivitamin with iron at least 2 hours apart and 4 hours apart from additional calcium Www.bariatricadKunerangoage.[employer] Start practicing eating slowly, chewing each bite of food 20-30 x per bite, making meals last 20-30 minutes, separatign food and fluids by 30 minutes . Have all meals and snacks at the table with no distractions. Make placemat for reminders; work towards normal sleep/wake pattern Pre-op goal weight: 281 pounds Protein needs: 85 grams per day documented in this encounter [facility] 09-17-2023 Note HNO ID: [id number] Author: ANNA ORTIZ RD Service: ? Author Type: Registered Dietitian Type: Progress Notes Filed: 09/17/2023 15:19 Note Text: [facility] Nutrition Therapy: Virtual Consult - Initial Assessment I have communicated my name and active licensure. The patient?s identity and physical location were verified at the time of this visit. Either the patient or their legal sales representative advertising has been informed of the risks and [...] to Surgery by next session [email or web address] -/[email or web address]/ [email or web address]?la=[email or web address] 2. Do [...] Examples: ? Slim Fast Advanced Nutrition ? [place] Breakfast Essentials ?Light Start? Drink mixed with [...] AM, 2 in the PM) www.bariatricfusion.com - [employer]: 1 Bariatric Multivitamin and Calcium Citrate (total of 9227-4539 mg/day) * take calcium citrate separately from Multivitamin with iron at least 2 hours apart and 4 hours apart from additional calcium www.OKDJ.fm.[employer] - Bariatric Choice: 4 Complete Multivitamins (chewables) [...] and using Phen (more content not included)... [facility] 09-17-2023 History of Presen t illness Narrative [facility] Nutrition Therapy: Virtual Consult - Initial Assessment I have communicated my name and active licensure. The patient s identity and physical location were verified at the time of this visit. Either the patient or their legal sales representative advertising has been informed of the risks and [...] to Surgery by next session [email or web address] -[email or web address]/ [email or web address]?la=[email or web address] 2. Do [...] full-liquid diet. Examples: Slim Fast Advanced Nutrition [place] Breakfast Essentials Light Start Drink mixed with [...] Bariatric Multivitamin and Calcium Citrate (total of 3074-1495 mg/day) * take calcium citrate separately from Multivitamin with iron at least 2 hours apart and 4 hours apart from additional calcium www.OKDJ.fm.[employer] - Bariatric Choice: 4 Complete Multivitamins (chewables) per day Www.bariatricWireless Safety.[employer] - Bariatric Advantage: 2 Multivitamins and 3 Calcium Citrate Chewables per day * take calcium citrate separately from Multivitamin with iron at least 2 hours apart and 4 hours apart from additional calcium Www.bariatricadvantage.[employer] Start practicing eating slowly, chewing each bite [...] suggested by 180 Initial weight: 295 lbs. [place] body weight is 155 lbs. Excess body weight is 140 lbs. Goal weight pre-op is 281 lbs. Protein needs are estimated at 85gm (1.2 - protein/kg IBW) Patient meets the National Institutes of Health guidelines for weight loss surgery and has [place] Insurance therefore is required to complete 0 [...] 2:25 PM documented in this encounter [facility] 09-11-2023 Telephone encounter Note Attempted to call pt, re: hypothyroid and low vitamin d levels, no answer, left vm. Tonya Senior APRN.PARKING LINE PAINTER [facility] 09-01-2023 Note HNO ID: [id number] Author: LATONIA GREENE, PhD Service: ? Author Type: Psychologist Type: Progress Notes Filed: 09/01/2023 13:22 Note Text: [facility] Progress Note 09/01/2023 Billing code: Jerel Patient did not attend, cancel, or reschedule this appointment. Provider left HIPAA compliant voicemail and MyChart message with contact information to reschedule. Latonia Greene PhD Clinical Psychologist [facility] 09-01-2023 History of Presen t illness Narrative [facility] Progress Note 09/01/2023 Billing code: Jerel Patient did not attend, cancel, or reschedule this appointment. Provider left HIPAA compliant voicemail and MyChart message with contact information to reschedule. Latonia Greene PhD Clinical Psychologist documented in this encounter [facility] 08-20-2023 Note HNO ID: [id number] Author: TONYA SENIOR APRN.PARKING LINE PAINTER Service: ? Author Type: Nurse Practitioner Type: Progress Notes Filed: 08/20/2023 16:21 Note Text: have communicated my name and active licensure. The patient's identity and physical location were verified at the time of this visit. Either the patient or their legal sales representative advertising has been informed of the risks and benefits of -- and alternatives to -- treatment through a remote evaluation and consents to proceed with the evaluation remotely. BMI MEDICAL CONSULT I have communicated my name and active licensure. The patient's identity and physical location were verified at the time of this visit. Either the patient or their legal sales representative advertising has been informed of the risks and [...] mass index (BMI) of 50-59.9 in adult (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) - ICD9: V85.43, ICD10: Z68.43 (primary diagnosis) Weight decreasing - Behavioral intervention, - Medical nutrition therapy with dietitian, and - Psychology - COMPLETE BLOOD COUNT AND DIFFERENTIAL - COMPREHENSIVE METABOLIC PANEL - FERRITIN - FOLATE, SERUM - HEMOGLOBIN A1C - (more content not included)... [facility] 08-20-2023 History of Presen t illness Narrative Images from the original note were not included. have communicated my name and active licensure. The patient's identity and physical location were verified at the time of this visit. Either the patient or their legal sales representative advertising has been informed of the risks and benefits of -- and alternatives to -- treatment through a remote evaluation and consents to proceed with the evaluation remotely. [employer] MEDICAL CONSULT I have communicated my name and active licensure. The patient's identity and physical location were verified at the time of this visit. Either the patient or their legal sales representative advertising has been informed of the risks and [...] mass index (BMI) of 50-59.9 in adult (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) - ICD9: V85.43, ICD10: Z68.43 [...] PANEL - LIPID PANEL BASIC Tonya Senior APRN.CNP -- Recommend that she should not become [...] Medicine Visit documented in this encounter [facility] 06-13-2023 Evaluation note Encounter Date Diagnosis [...] 8 weeks -Handed patient self referral to [facility] bariatric surgery program -[id number]-ti-[id number] A1c December 2022 5.4%-Follow up in clinic in 8 weeksThis note was created with voice recognition software. Please excuse errors in forensic engineer. Jun, Dietary surveillance and counseling (ICD-10 - [...] for a goal of 5% weight reduction. [facility] Other 08-30-2023 Evaluation note* Encounter Date Diagnosis [...] on in the past and denies side suluhxv-Kbgll-ee-care A1c today 5.4%-Follow up in clinic in 4 weeksThis note was created with voice recognition software. Please excuse errors in forensic engineer. Dec, Dietary surveillance and counseling (ICD-10 - [...] premade protein drink for breakfast, by plain Macanese yogurt and flavor yourself with cinnamon or [...] with the patient, and documenting clinical information. [facility] Other Chief complaint+Reason for visit Narrative* Chief Complaint Obesity Reason for Visit Exercise counseling Severe obesity (BMI >= 40) [facility] Work Phone: Chief complaint+Reason for visit Narrative* Chief Complaint Pos test, Cramping, Vaginal bleeding Reason for Visit Exercise counseling Severe obesity (BMI >= 40) [facility] Work Phone: Evaluation noteNo assessment information available [facility] Work Phone: Evaluation note* Diagnosis Onset Date Resolution Status Exercise counseling acute Severe obesity (BMI >= 40) delilah kevin [facility] Work Phone: Evaluation note* Diagnosis Body mass index (BMI) of 50-59.9 in adult ([facility])- Primary Body Mass Index 50.0-59.9, adult Angel's thyroiditis Chronic lymphocytic thyroiditis High blood cholesterol Pure hypercholesterolemia [facility] Diagnosis NO SHOW- Primary documented in this encounter [facility] note* Diagnosis Obesity, Class III, BMI 40-49.9 (morbid obesity) ([facility])- Primary Morbid obesity Dietary counseling Dietary surveillance and counseling [facility] Diagnosis Vitamin D deficiency- Primary Unspecified vitamin D deficiency [facility]* Diagnosis 25 weeks gestation of Second trimester state, incidental Diabetes mellitus screening Screening for diabetes mellitus size inconsistent with dates H/O premature delivery documented in this encounter [facility]* Diagnosis Encounter for follow-up ultrasound of anatomy- Primary History of pre-eclampsia in prior , currently with other poor obstetric history History of delivery, currently with history of pre-term labor Obesity affecting in second trimester, unspecified obesity type [facility] Diagnosis Third trimester state, incidental 29 weeks gestation of documented in this encounter [facility]* Diagnosis Third trimester state, incidental 31 weeks gestation of H/O premature delivery documented in this encounter [facility]* Diagnosis 33 weeks gestation of Third trimester state, incidental H/O premature delivery Thyroid disease ([facility]) Unspecified disorder of thyroid H/O [...] gestation of documented in this encounter [facility] N[facility]ative - Reported* Type Description Date Surgical History adnoidectomy Surgical History gall bladder Surgical History L Fallopian tube removed Hospitalization History See Above [facility] Other Hospital Discharge instructions Additional Instructions You may take hmrf-igc-ieodmqz cough and cold medication as needed You may take wwfq-idd-lvtzyct Tylenol and/or ibuprofen as needed Increase oral fluids Follow-up with family doctor as needed Return to the ER for any acute difficulty breathing high fever vomiting or any [facility]: Hospital Discharge instructions Additional Instructions Nothing into vagina until seen by HOPPER FEEDER May take Tylenol for discomfort Increase oral fluids Follow-up with HOPPER FEEDER Return to the ER for heavy bleeding greater than a pad an hour feeling dizzy lightheaded or any other [facility] Work Phone: Hospital Discharge instructions Additional Instructions Follow-up with your OB in the next week.[facility] Work Phone: InstructionsNot on filedocumented in this encounter [facility] for referral (narrative)* Diagnostic Procedure Only (Routine) - Pending Review Specialty Diagnoses / Procedures Referred By Wendy campos Referred To Contact [facility] Diagnoses Body mass index (BMI) of 50-59.9 in adult (HCC) Procedures US ABD RIGHT UPPER QUADRANT US ABDOMINAL REAL TIME W/IMAGE LIMITED Tonya Senior, FRED.PAR[employer]INTER [address] [place] [address] [place] [address] Referral ID Status Reason Start Date Expiration Date Visits Requested Visits Authorized [id number] Pending Review Auto-Generat ed Referral 08/20/2023 09/18/2024 1 1 * Outpatient Procedure (Routine) - Pending Review Specialty Diagnoses / Procedures Referred By Wendy t Referred To [facility] Diagnoses Body mass index (BMI) of 50-59.9 in adult (HCC) Procedures ECG COMPLETE ECG ROUTINE ECG W/LEAST 12 LDS W/I&R Tonya Senior APRN.CNP [address] [place] [address] [facility] [address] [place] [id number] Referral ID Status Reason Start Date Expiration Date Visits Requested Visits Authorized [id number] Pending Review Auto-Generat ed Referral 08/20/2023 08/19/[address] [facility] Summary Purpose Family History Mother Name [...] section and content) DATE CREATED AUTHOR 10/31/2017 [facility] DATE CREATED AUTHOR AUTHOR'S ORGANIZ ATION 04/23/2020 [facility] DATE CREATED AUTHOR AUTHOR'S ORGANIZ ATION 08/08/2020 [facility] DATE CREATED AUTHOR AUTHOR'S ORGANIZ ATION 08/22/2020 [facility] DATE CREATED AUTHOR AUTHOR'S ORGANIZ ATION 06/11/2022 [facility] DATE CREATED AUTHOR AUTHOR'S ORGANIZ ATION 09/06/2023 [facility] DATE CREATED AUTHOR AUTHOR'S ORGANIZ ATION 10/03/2023 [facility] DATE CREATED AUTHOR AUTHOR'S ORGANIZ ATION 10/18/2023 [facility] DATE CREATED AUTHOR AUTHOR'S ORGANIZ ATION 01/20/2024 [facility] DATE CREATED AUTHOR AUTHOR'S ORGANIZ ATION 04/30/2024 [facility] DATE CREATED AUTHOR AUTHOR'S ORGANIZ ATION 05/24/2024 [facility] DATE CREATED AUTHOR AUTHOR'S ORGANIZ ATION 05/29/2024 [facility] EPIC Care Teams (unrecognized sec tion and content) Team Status: Inactive Member Role Status Dates Services [facility] Primary Care Provider Active Ck To PA-C Emergency Provider Active Team Status: Active Member Role Status Dates Services [facility] Primary Care Provider Active Team Status: Inactive Member Role Status Dates Services [facility] Primary Care Provider Active ONIEL Mcmillan Emergency [...] Status: Inactive Member Role Status Dates [facility] Primary Care Provider Active Start: October 06, 2023 End: October 06, 2023 MRAGOT McmillanP- Emergency Provider Active Start: October 06, 2023 End: October 06, 2023 Team Status: Inactive Member Role Status Dates [facility] Primary Care Provider Active Start: February [...] prosecute any alcohol or drug abuse patient.[facility] the event this information is protected by the Federal Confidentiality of Alcohol and Drug Abuse Patient Records regulations: The Federal rules restrict any use of the information to criminally investigate or prosecute any alcohol or drug abuse patient.[facility] the event this information is protected by the Federal Confidentiality of Alcohol and Drug Abuse Patient Records regulations: The Federal rules restrict any use of the information to criminally investigate or prosecute any alcohol or drug abuse patient.[facility] the event this information is protected by the Federal Confidentiality of Alcohol and Drug Abuse Patient Records regulations: The Federal rules restrict any use of the information to criminally investigate or prosecute any alcohol or drug abuse patient.[facility] the event this information is protected by the Federal Confidentiality of Alcohol and Drug Abuse Patient Records regulations: The Federal rules restrict any use of the information to criminally investigate or prosecute any alcohol or drug abuse patient.[facility] the event this information is protected by the Federal Confidentiality of Alcohol and Drug Abuse Patient Records regulations: The Federal rules restrict any use of the information to criminally investigate or prosecute any alcohol or drug abuse patient.[facility] FOR RECORDS PERTAINING TO PATIENTS WHO [...] BE BASED ON THE PRIMARY CLINICAL RECORDS. [facility] [facility]. provides no warranty or guarantee of the accuracy or completeness of information in this document.
--- OUTSIDE RECORDS SUMMARY | 2024-06-03 07:19 | XMS_ITS | CCD ---
Author Organization [facility] Care Team Providers Care Marine Safety Officer Name Role Phone Agustin Patton Unavailable Unavailable Agustin Patton Unavailable Unavailable Bayron Mccarty Unavailable Unavailable Unavailable Unavailable Unavailable Unavailable Unavailable Unavailable [facility] Primary Care Provider DEMETRIUS To Emergency Provider DR TACHO MENENDEZ Attending Unavailable DR TACHO MENENDEZ Consulting Unavailable DR TACHO MENENDEZ Admitting Unavailable [facility] Primary Care Provider Anabella [facility] Marychuy E Emergency Provider Nicholas Michaels Unavailable [facility] Services Primary Care Provider DO Nicholas Michaels Attending Provider Unavailable Primary Care Provider Unavailabl e Unavailable Primary Care Provider Unavailabl e LATONIA GREENE Attending Unavailable TONYA SENIOR Attending Unavailable [facility] Primary Care Provider [phone] Anabella [facility] Marychuy E Emergency Provider LATONIA GREENE Referring Unavailable LATONIA GREENE Attending Unavailable ANNA ORTIZ Attending Unavailable TONYA SENIOR Referring Unavailable TONYA SENIOR Referring Unavailable TACHO MENENDEZ Referring Unavailable MAKEDA GROSS Attending Unavailable TACHO MENENDEZ Referring Unavailable Unavailable Primary Care Provider Unavailabl e [facility] Primary Care Provider DEMETRIUS To Emergency Provider [phone] Unavailable Primary Care Provider UnavailDO Devika Nicholas Emergency Provider SHON, TACHO R Referring Unavailable SHON, TACHO R Referring Unavailable SHON, TACHO R Referring Unavailable [facility] Primary Care Provider Ck To PA-C Emergency Provider Devika De La Garza DO Emergency Provider Shon DOTacho Attending Provider [facility] Primary Care Unavaila ble Bullimore, Marychuy E Admitting Unavailable Bullimore, Marychuy E Attending Unavailable Shon, Tacho Admitting Unavailable Shon, Tacho Attending Unavailable [facility] Services Primary Care Unavaila Nicholas Willams Admitting Unavailable Nicholas Michaels Attending Unavailable Ck To Attending Unavailable [facility] Primary Care Unavaila Ck Castrejon Admitting Unavailable Devika De La Garza Admitting Unavailable Devika De La Garza Attending Unavailable [facility] Primary Care Unavaila ble SHON, TACHO Attending Unavailable SHON, TACHO Attending Unavailable MARISSA, MENA Attending Unavailable SHON, TACHO Attending Unavailable MARISSA, MENA Attending Unavailable SHON, ATCHO Attending Unavailable SHON, TACHO Attending Unavailable MARISSA, [...] mg/ml oral solution (3 sources) Phenothiazine, Uncompetitive H-gjnbaf-X-aspartate Receptor Antagonist, Sigma-1 Agonist Start: 02-26-2024 take [...] Daily 30 tablet 11 10/30/2023 10/29/2024 Active [place] (No Known Home Meds) (3 sources) Start: 10-06-2023 [place] (No Kn own Home Meds) Active October 06, 2023 12:00am Start: 06-18-2022 [place] (No Kn own Home Meds) Active June [...] oral solution (8 sources) alpha-Adrenergic Agonist, Uncompetitive R-pnuokb-U-asparta te Receptor Antagonist, Sigma-1 Agonist Start: 2 [...] 26, 2019 11:58am July 28, 2020 6:27pm Elgsdpyn-Cyn-Av-Fa () 1 mg Tablet (8 sources) Start: 12-31-2020 End: 07-04-2021 take 1 tablet by mouth once Vvfhnbza-Uwp-Re-Fa () 1 mg Tablet Discontinued TAB PO December 30, 2020 11:00pm July 04, 2021 9:48am Start: 12-31-2020 End: 07-04-2021 take 1 tablet by mouth once Eqopifbq-Lnb-Pf-F a () 1 mg Tablet Discontinued TAB [...] 9:55am Start: 06-19-[address] [facility] twice daily Progesterone Micronized 100 MG Oral Capsule TAKE 1 CAPSULE Twice daily insert capsules vaginally Quantity: 30 Refills: 3 Bayron Mccarty MD Start : 19-Jun-2020 Active sennosides, retirement 8.6 mg oral tablet (1 source) take [address] [facility] every twenty-four hours Senna 8.6 MG [...] WITH AUTO DIFFon BASOPHILS ABSOLUTE AUTO 0 [facility] Basophils/100 WBC (Bld) 0.2 % 0.2 - 2.0 % [facility] Eosinophils/100 WBC (Bld) 1.3 % 0.9 - 7.0 % [facility] Erythrocyte distribution width (RBC) [Ratio] 13.2 % 11.0 - 15.0 % [facility] Hematocrit (Bld) [Volume fraction] 33.3 % Low 36.0 - 48.0 % [facility] Hemoglobin (Bld) [Mass/Vol] 11 g/dL Low 12.0 - 16.0 g/dL [facility] IMMATURE GRANULOCYTES ABS AUTO 0.04 High [facility] Immature granulocytes/100 WBC (Bld) 0.4 % 0.0 - 0.5 % [facility] Interpretation and review of laboratory results Abnormal [facility] LYMPHOCYTES ABSOLUTE AUTO 2.6 [facility] Lymphocytes/100 WBC (Bld) 28.3 % 20.5 - 60.0 % [facility] MCH (RBC) [Entitic mass] 29.7 pg 26.7 - 34.0 pg [facility] MCHC (RBC) [Mass/Vol] 33 g/dL 29.9 - 35.2 g/dL [facility] MCV (RBC) [Entitic vol] 90 fL 81.0 - 99.0 fL [facility] MONOCYTES ABSOLUTE AUTO 0.6 [facility] Monocytes/100 WBC (Bld) 6.6 % 1.7 - 12.0 % [facility] NEUTROPHILS ABSOLUTE AUTO 5.7 [facility] Neutrophils/100 WBC (Bld) 63.2 % 43.0 - 75.0 % [facility] Platelet mean volume (Bld) [Entitic vol] 9.4 fL Low 9.5 - 13.5 fL [facility] TBH EO # 0.1 [facility] TBH PLT 278 [facility] TB RBC 3.7 Low [facility] TB WBC 9.1 [facility] HMHP CBC WITH PLATELET NO DI FFERENTIALon 05-31-2024 Erythrocyte distribution width (RBC) [Ratio] 13.1 % 11.0 - 15.0 % [facility] Hematocrit (Bld) [Volume fraction] 35.2 % Low 36.0 - 48.0 % [facility] Hemoglobin (Bld) [Mass/Vol] 11.7 g/dL Low 12.0 - 16.0 g/dL [facility] Interpretation and review of laboratory results Abnormal [facility] MCH (RBC) [Entitic mass] 29.6 pg 26.7 - 34.0 pg [facility] MCHC (RBC) [Mass/Vol] 33.2 g/dL 29.9 - 35.2 g/dL [facility] MCV (RBC) [Entitic vol] 89.1 fL 81.0 - 99.0 fL [facility] Platelet mean volume (Bld) [Entitic vol] 9.8 fL 9.5 - 13.5 fL [facility] TBH PLT 325 [facility] TBH RBC 3.95 Low [facility] TBH WBC 6.8 [facility] ALL CBC WITH AUTO DIFFon BASOPHILS ABSOLUTE AUTO 0 [facility] Basophils/100 WBC (Bld) 0.3 % 0.2 - 2.0 % [facility] Eosinophils/100 WBC (Bld) 1.8 % 0.9 - 7.0 % [facility] Erythrocyte distribution width (RBC) [Ratio] 13 % 11.0 - 15.0 % [facility] Hematocrit (Bld) [Volume fraction] 36.5 % 36.0 - 48.0 % [facility] Hemoglobin (Bld) [Mass/Vol] 12.4 g/dL 12.0 - 16.0 g/dL [facility] IMMATURE GRANULOCYTES ABS AUTO 0.03 [facility] Immature granulocytes/100 WBC (Bld) 0.4 % 0.0 - 0.5 % [facility] Interpretation and review of laboratory results Abnormal [facility] LYMPHOCYTES ABSOLUTE AUTO 2.2 [facility] Lymphocytes/100 WBC (Bld) 31.4 % 20.5 - 60.0 % [facility] MCH (RBC) [Entitic mass] 30 pg 26.7 - 34.0 pg [facility] MCHC (RBC) [Mass/Vol] 34 g/dL 29.9 - 35.2 g/dL [facility] MCV (RBC) [Entitic vol] 88.4 fL 81.0 - 99.0 fL [facility] MONOCYTES ABSOLUTE AUTO 0.5 [facility] Monocytes/100 WBC (Bld) 7.5 % 1.7 - 12.0 % [facility] NEUTROPHILS ABSOLUTE AUTO 4.1 [facility] Neutrophils/100 WBC (Bld) 58.6 % 43.0 - 75.0 % [facility] Platelet mean volume (Bld) [Entitic vol] 9.6 fL 9.5 - 13.5 fL [facility] TBH EO # 0.1 [facility] TB PLT 380 [facility] RBC 4.13 Low [facility] TB WBC 7 [facility] BOX TESTon 05-22-2024 BOX TEST RESULT SEE SCANNED REPORT N [facility] BOX TEST SENT OUT GROUP B STREP [facility] Healthcare BOX1 [facility] BOX2 05/17/24 [facility] GROUP B STREP [facility] Strep B Culture (PCN Allergi c)on 05-17-2024 Strep B Culture (PCN Allergic) Strep B Only Cult No Group B Beta Streptococcus Isolated 3 Days PERFORMED BY: [place] [address] PATHOLOGIST FELT CARBONIZER APOLINAR POLANCO M.D. Normal [facility] Comment on above: Performed By: #### C USTB(PCN) #### [address] Urinalysis macro (dipstick) panel (U)on 05-17-2024 Bilirubin, UA Negative Negative - 4(70) +++ mg/dL [facility] Blood, UA Negative Negative - 50 Bradley/mcL [facility] Clarity, UA Clear [facility] Color, UA Jessica [facility] Glucose, UA Negative Negative - 1999(110) ++++ mg/dL [facility] Interpretation and review of laboratory results Abnormal [facility] Ketones, UA Negative Negative - 160(16) ++++ mg/dL [facility] Leukocytes, UA Positive Negative - 500+++ Gabby/mcL [facility] Comment on above: small Nitrite, UA Negative Negative - Positive [facility] pH, UA 6.5 5 - 9 [facility] Protein, UA Positive Negative - 2000(20) ++++ mg/dL [facility] Comment on above: 30 Spec Grav, UA 1.03 1 - 1.03 [facility] Urobilinogen, UA 0.2 0.2 - 12 mg/dL [facility] ALL THYROID STIM HORMONEon 1 07-04-2023 TSH Qn 2.422 m[IU]/L [facility] Urinalysis macro (dipstick) panel (U)on 05-03-2024 Bilirubin, UA Negative Negative - 4(70) +++ mg/dL [facility] Blood, UA Negative Negative - 50 Bradley/mcL [facility] Clarity, UA Clear [facility] Color, UA Yellow [facility] Glucose, UA Negative Negative - 1999(110) ++++ mg/dL [facility] Interpretation and review of laboratory results Abnormal [facility] Ketones, UA Negative Negative - 160(16) ++++ mg/dL [facility] Leukocytes, UA Positive Negative - 500+++ Gabby/mcL [facility] Comment on above: small Nitrite, UA Negative Negative - Positive [facility] pH, UA 6 5 - 9 [facility] Protein, UA Negative Negative - 1999(20) ++++ mg/dL [facility] Spec Grav, UA 1.03 1 - 1.03 [facility] Urobilinogen, UA 0.2 0.2 - 12 mg/dL [facility] Urinalysis macro (dipstick) panel (U)on 04-22-2024 Bilirubin, UA Negative Negative - 4(70) +++ mg/dL [facility] Blood, UA Negative Negative - 50 Bradley/mcL [facility] Clarity, UA Clear [facility] Color, UA Yellow [facility] Glucose, UA Negative Negative - 1999(110) ++++ mg/dL [facility] Interpretation and review of laboratory results Abnormal [facility] Ketones, UA Negative Negative - 160(16) ++++ mg/dL [facility] Leukocytes, UA Trace Negative - 500+++ Gabby/mcL [facility] Nitrite, UA Negative Negative - Positive [facility] pH, UA 6 5 - 9 [facility] Protein, UA Positive Negative - 1999(20) ++++ mg/dL [facility] Comment on above: 30 Spec Grav, UA 1.025 1 - 1.03 [facility] Urobilinogen, UA 1.0 0.2 - 12 mg/dL [facility] Urinalysis macro (dipstick) panel (U)on 04-06-2024 Bilirubin, UA Negative Negative - 4(70) +++ mg/dL [facility] Blood, UA Negative Negative - 50 Bradley/mcL [facility] Clarity, UA Clear [facility] Color, UA Yellow [facility] Glucose, UA Negative Negative - 1999(110) ++++ mg/dL [facility] Interpretation and review of laboratory results Abnormal [facility] Ketones, UA Negative Negative - 160(16) ++++ mg/dL [facility] Leukocytes, UA Positive Negative - 500+++ Gabby/mcL [facility] Comment on above: small Nitrite, UA Negative Negative - Positive [facility] pH, UA 7 5 - 9 [facility] Protein, UA Negative Negative - 1999(20) ++++ mg/dL [facility] Spec Grav, UA 1.02 1 - 1.03 [facility] Urobilinogen, UA 0.2 0.2 - 12 mg/dL [facility] Urinalysis macro (dipstick) panel (U)on 03-22-2024 Bilirubin, UA Positive Negative - 4(70) +++ mg/dL [facility] Blood, UA Negative Negative - 50 Bradley/mcL [facility] Clarity, UA Clear [facility] Color, UA Yellow [facility] Glucose, UA Negative Negative - 1999(110) ++++ mg/dL [facility] Interpretation and review of laboratory results Normal [facility] Ketones, UA Positive Negative - 160(16) ++++ mg/dL [facility] Leukocytes, UA Positive Negative - 500+++ Gabby/mcL [facility] Nitrite, UA Negative Negative - Positive [facility] pH, UA 7 5 - 9 [facility] Protein, UA Positive Negative - 1999(20) ++++ mg/dL [facility] Spec Grav, UA 1.025 1 - 1.03 [facility] Urobilinogen, UA 1.0 0.2 - 12 mg/dL [facility] ALL CBC WITH AUTO DIFFon BASOPHILS ABSOLUTE AUTO 0 [facility] Basophils/100 WBC (Bld) 0.5 % 0.2 - 2.0 % [facility] Eosinophils/100 WBC (Bld) 2.4 % 0.9 - 7.0 % [facility] Erythrocyte distribution width (RBC) [Ratio] 13.2 % 11.0 - 15.0 % [facility] Hematocrit (Bld) [Volume fraction] 33.2 % Low 36.0 - 48.0 % [facility] Hemoglobin (Bld) [Mass/Vol] 11.1 g/dL Low 12.0 - 16.0 g/dL [facility] IMMATURE GRANULOCYTES ABS AUTO 0.02 [facility] Immature granulocytes/100 WBC (Bld) 0.3 % 0.0 - 0.5 % [facility] Interpretation and review of laboratory results Abnormal [facility] LYMPHOCYTES ABSOLUTE AUTO 2.1 [facility] Lymphocytes/100 WBC (Bld) 32.5 % 20.5 - 60.0 % [facility] MCH (RBC) [Entitic mass] 30.5 pg 26.7 - 34.0 pg [facility] MCHC (RBC) [Mass/Vol] 33.4 g/dL 29.9 - 35.2 g/dL [facility] MCV (RBC) [Entitic vol] 91.2 fL 81.0 - 99.0 fL [facility] MONOCYTES ABSOLUTE AUTO 0.3 [facility] Monocytes/100 WBC (Bld) 4.6 % 1.7 - 12.0 % [facility] NEUTROPHILS ABSOLUTE AUTO 3.9 [facility] Neutrophils/100 WBC (Bld) 59.7 % 43.0 - 75.0 % [facility] Platelet mean volume (Bld) [Entitic vol] 9.3 fL Low 9.5 - 13.5 fL [facility] RBC 3.64 Low [facility] WBC 6.6 [facility] BioFire Not Detectedon 03-05 BioFire Not Detected Not detected Normal Not Detecte T adele [facility] Comment on above: Result Comment: This is a duplicate RP2.1 COVID (PCR) result to be used for statistical tracking purpose only. PERFORMED BY: [facility] [address] PATHOLOGIST FELT CARBONIZER LION STANLEY M.D. Performed By: #### C BC, CMP, HCGQNT #### [facility] [address] [place] [id number] [facility] COVID-19 Detected/Not Detect edOrdered By: Devika De La Garza on 03-05-2024 SARS-CoV-2 (COVID-19) RNA YANET+non-probe Ql (Nph) Not detected Not Detecte [facility] Comment on above: This is a duplicate RP2.1 COVID (PCR) result to be used for statistical tracking purpose only. ECG 12 lead ECGon 03-05-2024 ECG 12 lead ECG [facility] [place] [address] [place] [address] Electrocardiograph Report Signed Patient: Jaleesa Arrieta MR#: [id number] [birth year] : 1990 Acct:[id number] Age/Sex: 33 / F ADM Date: 03/05/24 Loc: ER Room: Type: [facility] ER Attending Dr: Ordering [...] Confirmed by DEVIKA DE LA GARZA DO ([id number]) on 03/06/2024 1:44:25 AM Referred By: Electronically Signed By: DEVIKA DE LA GARZA DO Transcribed By: MUS Signed By Devika De La Garza DO 03/06 0144 Normal [facility] Quick Strepon 03-05-2024 Quick Strep Streptococcus pyogen es Ag [Presence] in Throat by Rapid immunoassay Negative for Group A Strep Antigen Note 1 NOTE 2 Results are those of a screening test. NOTE 3 If clinically indicated please order a culture. NOTE 4 NOTE 5 Reference range = Negative PERFORMED BY: [place] [address] PATHOLOGIST FELT CARBONIZER LION STANLEY M.D. Normal [facility] Comment on above: Performed By: #### Q S, RESP PANEL UPP., BIOFIRECOVNOTDE #### [address] Respiratory (Upper) Panel, P CRon 03-05-2024 [...] A H3 Blank Space ------ PERFORMED BY: [place] [address] PATHOLOGIST FELT CARBONIZER LION STANLEY M.D. Normal [facility] Comment on above: Performed By: #### Q S, RESP PANEL UPP., BIOFIRECOVNOTDE #### [facility] [address] Respiratory pathogens DNA an d RNA panel - Nasopharynx by YANET with non-probe detectionOrdered By: Devika De La Garza on 03-05-2024 Respiratory pathogens DNA and RNA panel YANET+non-probe (Nph) Respiratory pathogens DNA and RNA panel - Nasopharynx by YANET with non-probe detection [facility] Respiratory pathogens DNA and RNA panel YANET+non-probe (Nph) [facility] Streptococcus pyogenes antig en detectionOrdered By: Devika De La Garza on 03-05-2024 S. pyogenes Ag Ql (Unsp spec) Streptococcus pyogenes antigen detection [facility] S. pyogenes Ag Ql (Unsp spec) [facility] XR chest 1V portableon 03-05 XR chest 1V portable [facility] [address] [place] [address] [place] [address] XRay Report Signed Patient: Jaleesa Arrieta MR#: [id number] [birth year] : 1990 Acct:[id number] Age/Sex: 33 / F ADM Date: 03/05/24 Loc: ER Room: Type: [facility] ER Attending Dr: Copies to: Devika [...] Priscilla Cunningham M.D.03/05/2024 9:34 PM Dictation Location: [place] [address] Transcribed By: [facility] 03/05/242133 Dictated By: Priscilla Cunningham MD 03/05/242130 Signed By: 03/05/242133 Normal [facility] Quick Strepon 02-26-2024 Quick Strep Streptococcus pyogen es Ag [Presence] in Throat by Rapid immunoassay Negative for Group A Strep Antigen Note 1 NOTE 2 Results are those of a screening test. NOTE 3 If clinically indicated please order a culture. NOTE 4 NOTE 5 Reference range = Negative PERFORMED BY: [facility] [address] [place] [address] PATHOLOGIST FELT CARBONIZER LION STANLEY M.D. Normal [facility] Comment on above: Performed By: #### Q S #### [facility] [address] Streptococcus pyogenes antig en detectionOrdered By: Ck To on 02-26-2024 S. pyogenes Ag Ql (Unsp spec) Streptococcus pyogenes antigen detection [facility] S. pyogenes Ag Ql (Unsp spec) [facility] Urinalysis macro (dipstick) panel (U)on 02-23-2024 Bilirubin, UA Negative Negative - 4(70) +++ mg/dL [facility] Blood, UA Negative Negative - 50 Bradley/mcL [facility] Clarity, UA Clear [facility] Color, UA Yellow [facility] Glucose, UA Negative Negative - 1999(110) ++++ mg/dL [facility] Interpretation and review of laboratory results Abnormal [facility] Ketones, UA Negative Negative - 160(16) ++++ mg/dL [facility] Leukocytes, UA Positive Negative - 500+++ Gabby/mcL [facility] Comment on above: small Nitrite, UA Negative Negative - Positive [facility] pH, UA 7 5 - 9 [facility] Protein, UA Negative Negative - 1999(20) ++++ mg/dL [facility] Spec Grav, UA 1.02 1 - 1.03 [facility] Urobilinogen, UA 0.2 0.2 - 12 mg/dL [facility] ALL THYROID STIM HORMONEon 0 01-26-2024 TSH Qn 2.645 m[IU]/L [facility] Urinalysis macro (dipstick) panel (U)on 01-20-2024 Bilirubin, UA Negative Negative - 4(70) +++ mg/dL [facility] Blood, UA Negative Negative - 50 Bradley/mcL [facility] Clarity, UA Clear [facility] Color, UA Yellow [facility] Glucose, UA Negative Negative - 1999(110) ++++ mg/dL [facility] Interpretation and review of laboratory results Abnormal [facility] Ketones, UA Negative Negative - 160(16) ++++ mg/dL [facility] Leukocytes, UA Trace Negative - 500+++ Gabby/mcL [facility] Nitrite, UA Negative Negative - Positive [facility] pH, UA 6.5 5 - 9 [facility] Protein, UA Negative Negative - 1999(20) ++++ mg/dL [facility] Spec Grav, UA 1.020 1 - 1.03 [facility] Urobilinogen, UA 0.2 0.2 - 12 mg/dL [facility] Alanine aminotransferase [En zymatic activity/volume] in Serum or PlasmaOrdered By: Marychuy Kyle on 10-06-2023 ALT [Catalytic activity/Vol] 13 U/L Normal 7-52 [facility] Comment on above: Performed By: #### C BC, CMP, HCGQNT #### [facility] [address] [place] [address] [place] Albumin [Mass/volume] in Ser um or Plasma by Bromocresol green (BCG) dye binding methoOrdered By: Marychuy Jeronimoimore on 10-06-2023 Albumin BCG dye [Mass/Vol] 3.8 g/dL 3.5-5.7 [facility] Alkaline phosphatase [Enzyma tic activity/volume] in Serum or PlasmaOrdered By: Marychuy Wangore on 10-06-2023 ALP [Catalytic activity/Vol] 61 U/L Normal 34-104 [facility] Comment on above: Performed By: #### C BC, CMP, HCGQNT #### [facility] [address] [place] [address] [place] Aspartate aminotransferase [ Enzymatic activity/volume] in Serum or PlasmaOrdered By: Marychuy Bullimore on 10-06-2023 AST [Catalytic activity/Vol] 13 U/L Normal 13-39 [facility] Comment on above: Performed By: #### C BC, CMP, HCGQNT #### [address] Automated basophil %Ordered By: Marychuy Bullimore on 10-06-2023 Basophils/100 WBC (Bld) 0.6 % Normal . [facility] Comment on above: Performed By: #### C BC, CMP, HCGQNT #### [address] Automated basophil countOrde red By: Marychuy Bullimore on 10-06-2023 Basophils (Bld) [#/Vol] 0.0 10*3/uL Normal 0.0-0.2 [facility] Comment on above: Result Comment: PERF ORMED BY: [place] [address] PATHOLOGIST FELT CARBONIZER LION STANLEY M.D. Performed By: #### C BC, CMP, HCGQNT #### [address] Automated blood monocyte cou ntOrdered By: Marychuy Bullimore on 10-06-2023 Monocytes (Bld) [#/Vol] 0.5 10*3/uL Normal 0.0-0.8 [facility] Comment on above: Performed By: #### C BC, CMP, HCGQNT #### [address] Automated eosinophil %Ordere d By: Marychuy Bullimore on 10-06-2023 Eosinophils/100 WBC (Bld) 0.7 % Normal . [facility] Comment on above: Performed By: #### C BC, CMP, HCGQNT #### [address] Automated eosinophil countOr dered By: Marychuy Bullimore on 10-06-2023 Eosinophils (Bld) [#/Vol] 0.1 10*3/uL Normal 0.0-0.45 [facility] Comment on above: Performed By: #### C BC, CMP, HCGQNT #### [facility] [address] Automated epithelial cells c ount in urine sediment (number/area)Ordered By: Marychuy Jeronimoimore on 10-06-2023 Epithelial cells Auto (Urine sed) [#/Area] 3-4 [HPF] 0-2 [facility] Automated monocyte %Ordered By: Marychuy Bullimore on 10-06-2023 Monocytes/100 WBC (Bld) 6.7 % Normal . [facility] Comment on above: Performed By: #### C BC, CMP, HCGQNT #### [address] Automated neutrophil %Ordere d By: Marychuy Bullimore on 10-06-2023 Neutrophils/100 WBC (Bld) 54.4 % Normal . [facility] Comment on above: Performed By: #### C BC, CMP, HCGQNT #### [facility] [address] [place] [address] Bacteria [Presence] in Urine by AutomatedOrdered By: Marychuy Kyle on 10-06-2023 Bacteria Auto Ql (U) None seen [HPF] None Seen [facility] Bilirubin Test strip Ql (U)O rdered By: Marychuy Bullimore on 10-06-2023 Bilirubin Ql (U) Negative Negative [facility] Bilirubin.total [Mass/volume ] in Serum or PlasmaOrdered By: Marychuy Bullimore on 10-06-2023 Bilirubin [Mass/Vol] 0.2 mg/dL Low 0.3-1.0 [facility] Comment on above: Performed By: #### C BC, CMP, HCGQNT #### [facility] [address] [place] [address] Calcium [Mass/volume] in Ser um or PlasmaOrdered By: Marychuy Bullimore on 10-06-2023 Calcium [Mass/Vol] 9.4 mg/dL Normal 8.6-10.3 [facility] Comment on above: Performed By: #### C BC, CMP, HCGQNT #### [facility] [address] [place] [address] [place] Carbon dioxide, total [Moles /volume] in Serum or PlasmaOrdered By: Marychuy Bullimore on 10-06-2023 CO2 [Moles/Vol] 25.5 mmol/L Normal 21.0-31.0 [facility] Comment on above: Performed By: #### C BC, CMP, HCGQNT #### [facility] [address] [place] [address] [place] Chloride [Moles/volume] in S sondra or PlasmaOrdered By: Marychuy Bullimore on 10-06-2023 Chloride [Moles/Vol] 105 mmol/L Normal 98-107 [facility] Comment on above: Performed By: #### C BC, CMP, HCGQNT #### [facility] [address] Choriogonadotropin.beta subu nit [Units/volume] in Serum or PlasmaOrdered By: Marychuy Bullimore on 10-06-2023 HCG.beta subunit Qn 2799.00 m[IU]/mL [facility] Comment on above: Approximate Approxim ate hCG Gestational Age Range (mIU/ml) (weeks)0.2-1 5-50 1-2 50-500 2-3 100-5,000 3-4 500-10,000 4-5 1,000-50,000 5-6 10,000-100,000 6-8 15,000-200,000 8-12 10,000-100,000 Color of Urine by AutoOrdere d By: Marychuy Kyle on 10-06-2023 Color (U) Yellow Normal Yellow [facility] Comment on above: Order Comment: NEED MORE SPECIMEN Name Collection Type:: Clean-Voided Midstream Performed By: #### A DDONUAPLUS #### [facility] [address] Complete Blood Count Auto Di ffon 10-06-2023 Mean Corpuscular HGB Conc 34.4 g/dL Normal 32.0-35.0 [facility] Comment on above: Performed By: #### C BC, CMP, HCGQNT #### [address] Monocytes/100 WBC (Bld) 17.37 % Normal 0.00-20.00 [facility] Comment on above: Performed By: #### C BC, CMP, HCGQNT #### [facility] [address] NRBC% 0.2 /100{WBC} Normal 0-0.5 [facility] Comment on above: Performed By: #### C BC, CMP, HCGQNT #### [address] Comprehensive Metabolic Pane panchito 10-06-2023 Albumin [Mass/Vol] 3.8 g/dL Normal 3.5-5.7 [facility] Comment on above: Performed By: #### C BC, CMP, HCGQNT #### [address] Creatinine Clr Calc Pharmacy 180.48 Normal [facility] Comment on above: Performed By: #### C BC, CMP, HCGQNT #### [address] GFR/1.73 sq M.predicted MDRD (S/P/Bld) [Vol rate/Area] mL/min/{1.73_m2} Normal [facility] Comment on above: Performed By: #### C BC, CMP, HCGQNT #### [address] Creatinine [Mass/volume] in Serum or PlasmaOrdered By: Marychuy Kyle on 10-06-2023 Creatinine [Mass/Vol] 0.63 mg/dL Normal 0.60-1.20 [facility] Comment on above: Performed By: #### C BC, CMP, HCGQNT #### [address] Dipstick and Microscopicon 0 10-06-2023 Appearance (U) Clear Normal Clear [facility] Comment on above: Order Comment: NEED MORE SPECIMEN Name Collection Type:: Clean-Voided Midstream Performed By: #### A DDONUAPLUS #### [address] Bacteria,Urine None Seen Normal None Seen [facility] Comment on above: Order Comment: NEED MORE SPECIMEN Name Collection Type:: Clean-Voided Midstream Performed By: #### A DDONUAPLUS #### [address] Bilirubin,Urine Negative Normal Negative [facility] Comment on above: Order Comment: NEED MORE SPECIMEN Name Collection Type:: Clean-Voided Midstream Performed By: #### A DDONUAPLUS #### [address] Glucose Ql (U) Normal Normal Normal [facility] Comment on above: Order Comment: NEED MORE SPECIMEN Name Collection Type:: Clean-Voided Midstream Performed By: #### A DDONUAPLUS #### [address] Hyaline Casts,Urine 0-8 Normal 0-8 [facility] Comment on above: Order Comment: NEED MORE SPECIMEN Name Collection Type:: Clean-Voided Midstream Result Comment: PERF ORMED BY: [place] [address] PATHOLOGIST FELT [employer]ER LION STANLEY M.D. Performed By: #### A DDONUAPLUS #### [address] Ketones Ql (U) Negative Normal Negative [facility] Comment on above: Order Comment: NEED MORE SPECIMEN Name Collection Type:: Clean-Voided Midstream Performed By: #### A DDONUAPLUS #### [address] Leukocyte esterase Test strip Ql (U) 1+ High Negative [facility] Comment on above: Order Comment: NEED MORE SPECIMEN Name Collection Type:: Clean-Voided Midstream Performed By: #### A DDONUAPLUS #### [address] [place] [address] [place] Nitrite,Urine Negative Normal Negative [facility] Comment on above: Order Comment: NEED MORE SPECIMEN Name Collection Type:: Clean-Voided Midstream Performed By: #### A DDONUAPLUS #### [address] Occult Blood,Urine Negative Normal Negative [facility] Comment on above: Order Comment: NEED MORE SPECIMEN Name Collection Type:: Clean-Voided Midstream Result Comment: PERF ORMED BY: [place] [address] PATHOLOGIST FELT [employer]ER LION STANLEY M.D. Performed By: #### A DDONUAPLUS #### [place] [address] [place] Protein,Urine Negative Normal Negative [facility] Comment on above: Order Comment: NEED MORE SPECIMEN Name Collection Type:: Clean-Voided Midstream Performed By: #### A DDONUAPLUS #### [place] [address] [place] RBC LM.HPF (Urine sed) [#/Area] 0 /[HPF] Normal 0-4 [facility] Comment on above: Order Comment: NEED MORE SPECIMEN Name Collection Type:: Clean-Voided Midstream Performed By: #### A DDONUAPLUS #### [place] [address] [place] Specificy [place],Urine 1.017 Normal 1.001-1.030 [facility] Comment on above: Order Comment: NEED MORE SPECIMEN Name Collection Type:: Clean-Voided Midstream Performed By: #### A DDONUAPLUS #### [place] [address] [place] Squamous Epithelial Cell,Urine 3-4 High 0-2 [facility] Comment on above: Order Comment: NEED MORE SPECIMEN Name Collection Type:: Clean-Voided Midstream Performed By: #### A DDONUAPLUS #### [place] [address] [place] Urobilinogen,Urine Normal Normal Normal [facility] Comment on above: Order Comment: NEED MORE SPECIMEN Name Collection Type:: Clean-Voided Midstream Performed By: #### A DDONUAPLUS #### [address] WBC,Urine 3-4 Normal 0-4 [facility] Comment on above: Order Comment: NEED MORE SPECIMEN Name Collection Type:: Clean-Voided Midstream Performed By: #### A DDONUAPLUS #### [address] Erythrocyte distribution wid th [Ratio] by Automated countOrdered By: Marychuy Kyle on 10-06-2023 Erythrocyte distribution width (RBC) [Ratio] 13.4 % Normal 11.9-15.3 [facility] Comment on above: Performed By: #### C BC, CMP, HCGQNT #### [address] Erythrocytes [#/area] in Uri ne sediment by Automated countOrdered By: Marychuy Wangore on 10-06-2023 RBC Auto (Urine sed) [#/Area] 0-1 [HPF] 0-4 [facility] Erythrocytes [#/volume] in B lood by Automated countOrdered By: Marychuy Wangore on 10-06-2023 RBC (Bld) [#/Vol] 4.08 10*6/uL Normal 3.60-5.00 [facility] Comment on above: Performed By: #### C BC, CMP, HCGQNT #### [address] Glucose [Mass/volume] in Ser um or PlasmaOrdered By: Marychuy Jeronimoimdianne on 10-06-2023 Glucose [Mass/Vol] 100 mg/dL Normal 70-100 [facility] Comment on above: ADA recommended refe rence rangeRandom Glucose Reference Range is dependent on time and content of last meal. Glucose of more than 200 mg/dL in a nonstressed, ambulatory subject supports the diagnosis of Diabetes Mellitus. Result Comment: [place] om Glucose Reference Range is dependent on time and content of last meal. Glucose of more than 200 mg/dL in a nonstressed, ambulatory subject supports the diagnosis of Diabetes Mellitus. ADA recommended reference range Performed By: #### C BC, CMP, HCGQNT #### [address] HCG,Quantitativeon HCG,Quantitative 2799.00 m[iU]/mL Normal [facility] Comment on above: Result Comment: Appr oximate Approximate hCG Gestational Age Range (mIU/ml) (weeks) 0.2-1 5-50 1-2 50-500 2-3 100-5,000 3-4 500-10,000 4-5 1,000-50,000 5-6 10,000-100,000 6-8 15,000-200,000 8-12 10,000-100,000 PERFORMED BY: [place] [address] PATHOLOGIST F[employer]T [employer]ER LION STANLEY M.D. Performed By: #### C BC, CMP, HCGQNT #### [address] Hematocrit [Volume Fraction] of Blood by Automated countOrdered By: Marychuy Kyle on 10-06-2023 Hematocrit (Bld) [Volume fraction] 36.7 % Normal 34.0-46.4 [facility] Comment on above: Performed By: #### C BC, CMP, HCGQNT #### [address] Hemoglobin [Mass/volume] in BloodOrdered By: Marychuy Kyle on 10-06-2023 Hemoglobin (Bld) [Mass/Vol] 12.6 g/dL Normal 11.8-15.4 [facility] Comment on above: Performed By: #### C BC, CMP, HCGQNT #### [address] Ketones Auto test strip (U) [Mass/Vol]Ordered By: Marychuy Kyle on 10-06-2023 Ketones (U) [Mass/Vol] Negative Negative [facility] - UrinalysisOrder ed By: Marychuy Kyle on 10-06-2023 Hyaline casts LM Ql (Urine sed) 0-8 [LPF] 0-8 [facility] Leukocytes [#/area] in Urine sediment by Automated countOrdered By: Marychuy Kyle on 10-06-2023 WBC Auto (Urine sed) [#/Area] 3-4 [HPF] 0-4 [facility] Leukocytes [#/volume] correc inocencia for nucleated erythrocytes in Blood by Automated counOrdered By: Marychuy Wangore on 10-06-2023 WBC corrected for nucl RBC Auto (Bld) [#/Vol] 7.4 10*3/uL 3.8-11.6 [facility] Leukocytes [#/volume] in Blo od by Automated countOrdered By: Marychuy Kyle on 10-06-2023 WBC (Bld) [#/Vol] 7.4 10*3/uL Normal 3.8-11.6 [facility] Comment on above: Performed By: #### C BC, CMP, HCGQNT #### [facility] [address] [place] [address] [place] Lymphocytes [#/volume] in Bl ood by Automated countOrdered By: Marychuy Kyle on 10-06-2023 Lymphocytes (Bld) [#/Vol] 2.8 10*3/uL Normal 1.00-4.8 [facility] Comment on above: Performed By: #### C BC, CMP, HCGQNT #### [facility] [address] [place] [address] [place] Lymphocytes/100 leukocytes i n Blood by Automated countOrdered By: Marychuy Kyle on 10-06-2023 Lymphocytes/100 WBC (Bld) 37.6 % Normal . [facility] Comment on above: Performed By: #### C BC, CMP, HCGQNT #### [facility] [address] [place] [address] [place] MCH [Entitic mass] by Automa inocencia countOrdered By: Marychuy Kyle on 10-06-2023 MCH (RBC) [Entitic mass] 31.0 pg Normal 24.7-34.3 [facility] Comment on above: Performed By: #### C BC, CMP, HCGQNT #### [facility] [address] [place] [address] MCHC Auto (RBC) [Mass/Vol]Or dered By: Marychuy Jeronimoimore on 10-06-2023 MCHC (RBC) [Mass/Vol] 34.4 g/dL 32.0-35.0 [facility] MCV [Entitic volume] by Auto mated countOrdered By: Marychuy Kyle on 10-06-2023 MCV (RBC) [Entitic vol] 90.1 fL Normal 80-100 [facility] Comment on above: Performed By: #### C BC, CMP, HCGQNT #### [facility] [address] [place] [address] Monocyte distribution width [Entitic volume] in Blood by AutomatedOrdered By: Marychuy Kyle on 10-06-2023 Monocyte distribution width Auto (Bld) [Entitic vol] 17.37 % 0.00-20.00 [facility] Neutrophils [#/volume] in Bl ood by Automated countOrdered By: Marychuy Kyle on 10-06-2023 Neutrophils (Bld) [#/Vol] 4.0 10*3/uL Normal 1.8-7.7 [facility] Comment on above: Performed By: #### C BC, CMP, HCGQNT #### [facility] [address] [place] [address] Nitrite Test strip Ql (U)Ord ered By: Marychuy Kyle on 10-06-2023 Nitrite Ql (U) Negative Negative [facility] No Panel InformationOrdered By: Marychuy Kyle on 10-06-2023 Estimated GFR (CKD-EPI) > 60.0 mL/Min [facility] Creatinine Clearance (Chem 180.48 [facility] Nucleated erythrocytes [Pres ence] in Blood by Automated countOrdered By: Marychuy Kyle on 10-06-2023 Nucleated RBC Auto Ql (Bld) 0.2 /100{WBC} 0-0.5 [facility] Platelet mean volume [Entiti c volume] in Blood by Automated countOrdered By: aMrychuy Kyle on 10-06-2023 Platelet mean volume (Bld) [Entitic vol] 7.5 fL Normal 6.3-10.7 [facility] Comment on above: Performed By: #### C BC, CMP, HCGQNT #### [address] Platelets [#/volume] in Bloo d by Automated countOrdered By: Marychuy Bullimore on 10-06-2023 Platelets (Bld) [#/Vol] 367 10*3/uL Normal 150-450 [facility] Comment on above: Performed By: #### C BC, CMP, HCGQNT #### [address] Potassium [Moles/volume] in Serum or PlasmaOrdered By: Marychuy Bullimore on 10-06-2023 Potassium [Moles/Vol] 4.1 mmol/L Normal 3.5-5.1 [facility] Comment on above: Performed By: #### C BC, CMP, HCGQNT #### [address] Protein Auto test strip (U) [Mass/Vol]Ordered By: Marychuy Bullimore on 10-06-2023 Protein (U) [Mass/Vol] Negative Negative [facility] Protein [Mass/volume] in Ser um or PlasmaOrdered By: Marychuy Bullimore on 10-06-2023 Protein [Mass/Vol] 7.4 g/dL Normal 6.4-8.9 [facility] Comment on above: Performed By: #### C BC, CMP, HCGQNT #### [address] Serum globulin measurement b y calculation (mass/volume)Ordered By: Marychuy Bullimore on 10-06-2023 Globulin (S) [Mass/Vol] 3.6 g/dL Normal [facility] Comment on above: Performed By: #### C BC, CMP, HCGQNT #### [address] Serum or plasma albumin/glob ulin mass ratioOrdered By: Marychuy Bullimore on 10-06-2023 Albumin/Globulin [Mass ratio] 1.1 {ratio} Normal [facility] Comment on above: Performed By: #### C JOSELYN WRIGHT, HCGQNT #### [address] Serum or plasma anion gap de terminationOrdered By: Marychuy Wangore on 10-06-2023 Anion gap [Moles/Vol] 12.6 mmol/L Normal 6.0-15.[address] [facility] Comment on above: Performed By: #### C BC, CMP, HCGQNT #### [address] Sodium [Moles/volume] in Ser um or PlasmaOrdered By: Marychuy Jeronimoimore on 10-06-2023 Sodium [Moles/Vol] 139 mmol/L Normal 136-145 [facility] Comment on above: Performed By: #### C ADRIANA, CMP, HCGQNT #### [address] Specific gravity Auto test s trip (U) [Rel density]Ordered By: Marychuymargaux Kyle on 10-06-2023 Specific gravity (U) [Rel density] 1.017 1.001-1.030 [facility] Urea nitrogen [Mass/volume] in Serum or PlasmaOrdered By: Marychuy Kyle on 10-06-2023 Urea nitrogen [Mass/Vol] 7 mg/dL Normal 7-25 [facility] Comment on above: Performed By: #### C BC, CMP, HCGQNT #### [address] Urine clarity by refractomet ry automatedOrdered By: Marychuy Kyle on 10-06-2023 Clarity Refractometry automated (U) Clear Clear [facility] Urine glucose measurement by automated test strip (mass/volume)Ordered By: Marychuy Kyle on 10-06-2023 Glucose Auto test strip (U) [Mass/Vol] Normal mg/dL Normal [facility] Urine hemoglobin detection b y automated test stripOrdered By: Marychuy Kyle on 10-06-2023 Hemoglobin Auto test strip Ql (U) Negative Negative [facility] Urine leukocyte esterase det ection by automated test stripOrdered By: Marychuy Kyle on 10-06-2023 Leukocyte esterase Auto test strip Ql (U) 1+ Negative [facility] Urine pH measurement by auto mated test stripOrdered By: Marychuy Kyle on 10-06-2023 pH (U) 7.0 [pH] Normal 5.0-9.0 [facility] Comment on above: Order Comment: NEED MORE SPECIMEN Name Collection Type:: Clean-Voided Midstream Performed By: #### A DDONUAPLUS #### [address] Urobilinogen Auto test strip (U) [Mass/Vol]Ordered By: Marychuy Kyle on 10-06-2023 Urobilinogen (U) [Mass/Vol] Normal mg/dL Normal [facility] Basia 09-11-2023 LIZ Telephone (MARTIN) -------- MERTJALEESA N ([id number]) 1990 F Date Time Provider Department 09/11/23 [...] Date Reviewed: 08/20/2023 Reviewed by: Tonya Senior APRN.ORGANIZATIONAL PSYCHOLOGIST - Fully Assessed Reason for Visit: Results [...] Encounter Status:Closed by TONYA SENIOR on 09/23/23 [facility] NICOTINE AND METAB, URon URIN ANABASINE QUANT <5 Normal [facility] Comment on above: Order Comment: Speci men Type: URINE SPECIMEN Ordering Facility: [facility] Address: [address] [place] [address] Performed By: #### U NICOT #### [facility] CLIA [id number] [address] [place] [address] URIN COTININE QUANT <15 Normal [facility] Comment on above: Order Comment: Speci men Type: URINE SPECIMEN Ordering Facility: [facility] Address: [address] [place] [address] Performed By: #### U NICOT #### [facility] CLIA [id number] [address] [place] [id number] URIN NICOTINE QUANT <15 Normal [facility] Comment on above: Order Comment: Speci men Type: URINE SPECIMEN Ordering Facility: [facility] Address: [address] [place] [address] Result Comment: INTE RPRETIVE INFORMATION: Nicotine and Metabolites, Urine, Quantitative Methodology: Quantitative Liquid Chromatography-Tandem Mass Spectrometry Positive cutoff: Nicotine 15 ng/mL Cotinine 15 ng/mL 0-PJ-[id number] 50 ng/mL Anabasine 5 ng/mL For medical [...] developed and its performance characteristics determined by [facility]. It has not been cleared or approved by the [place] Food and Drug Administration. This test was performed in a CLIA certified laboratory and is intended for clinical purposes. Performed By: [facility] [address] [place] [address] Powder Nipper: Rex Zuleta MD, PhD CLIA Number: [id number] Performed By: #### U NICOT #### [facility] CLIA [id number] [address] [place] [address] URINE 3 [place] COTININE <50 Normal [facility] Comment on above: Order Comment: Speci men Type: URINE SPECIMEN Ordering Facility: [facility] Address: [address] [place] [address] Performed By: #### U NICOT #### [facility] CLIA [id number] [address] [place] [address] TOXICOLOGY SCREEN, ROUTINE U RINEon 09-08-2023 Amphetamines Confirm (U) [Mass/Vol] Negative Normal Negative [facility] Comment on above: Order Comment: Speci men Type: URINE SPECIMEN Ordering Facility: [facility] Address: [address] [place] [address] Result Comment: Cuto ff threshold at 1000 ng/mL. Performed By: #### U TOX2 #### [facility] CLIA [id number] [address] [place] [address] [place] BARBITURATES, URINE Negative Normal Negative [facility] Comment on above: Order Comment: Speci men Type: URINE SPECIMEN Ordering Facility: [facility] Address: [address] [place] [address] Result Comment: Cuto ff threshold at 200 ng/mL. Performed By: #### U TOX2 #### [facility] CLIA [id number] [address] [place] [address] [place] BENZODIAZEPINES, UR Negative Normal Negative [facility] Comment on above: Order Comment: Speci men Type: URINE SPECIMEN Ordering Facility: [facility] Address: [address] [place] [address] Result Comment: Cuto ff threshold at 200 ng/mL. Performed By: #### U TOX2 #### [facility] CLIA [id number] [address] [place] [address] [place] Cannabinoids Screen Ql (U) Negative Normal Negative [facility] Comment on above: Order Comment: Speci men Type: URINE SPECIMEN Ordering Facility: [facility] Address: [address], [place] [address] Result Comment: Cuto ff threshold at 50 ng/mL. Performed By: #### U TOX2 #### [facility] CLIA [id number] [address] [place] [address] [place] Cocaine Ql (U) Negative Normal Negative [facility] Comment on above: Order Comment: Speci men Type: URINE SPECIMEN Ordering Facility: [facility] Address: [address] [place] [address] Result Comment: Cuto ff threshold at 300 ng/mL. Performed By: #### U TOX2 #### [facility] CLIA [id number] [address] [place] [address] [place] Ethanol (U) [Mass/Vol] <11 Normal <11 [facility] Comment on above: Order Comment: Speci men Type: URINE SPECIMEN Ordering Facility: [facility] Address: [address] [place] [address] Performed By: #### U TOX2 #### [facility] CLIA [id number] [address] [place] [address] [place] Opiates Screen Ql (U) Negative Normal Negative [facility] Comment on above: Order Comment: Speci men Type: URINE SPECIMEN Ordering Facility: [facility] Address: [address] [place] [address] Result Comment: Cuto ff threshold at 300 ng/mL. Performed By: #### U TOX2 #### [facility] CLIA [id number] [address] [place] [address] [place] oxyCODONE cutoff Screen (U) [Mass/Vol] Negative Normal Negative [facility] Comment on above: Order Comment: Speci men Type: URINE SPECIMEN Ordering Facility: [facility] Address: [address] [place] [address] Result Comment: Cuto ff threshold at 100 ng/mL. Performed By: #### U TOX2 #### [facility] CLIA [id number] [address] [place] [address] [place] Phencyclidine Ql (U) Negative Normal Negative [facility] Comment on above: Order Comment: Speci men Type: URINE SPECIMEN Ordering Facility: [facility] Address: [address] [place] [address] Result Comment: Cuto ff threshold at 25 ng/mL. Performed By: #### U TOX2 #### [facility] CLIA [id number] [address] [place] [address] [place] 25(OH)D3 SerPl-mCncon 2023 25-hydroxyvitamin D3 [Mass/Vol] 11.9 ng/mL Low 31.0-80.0 [facility] Comment on above: Order Comment: Speci men Type: BLOOD SPECIMEN Ordering Facility: [facility] Address: [address] [place] [address] Performed By: #### 2 276-4, 2132-01, 2283-12 #### [facility] CLIA [id number] [address] [place] [address] [place] CBC W Auto Differential pane l (Bld)on 09-05-2023 Basophils (Bld) [#/Vol] 10*3/uL Normal <0.11 [facility] Comment on above: Order Comment: Speci men Type: BLOOD SPECIMEN Ordering Facility: [facility] Address: [address] [place] [address] Performed By: #### 2 276-4, 2132-01, 2283-12 #### [facility] CLIA [id number] [address] [place] [address] [place] Basophils/100 WBC (Bld) 0.3 % Normal [facility] Comment on above: Order Comment: Speci men Type: BLOOD SPECIMEN Ordering Facility: [facility] Address: [address] [place] [address] Performed By: #### 2 276-4, 2132-01, 2283-12 #### [facility] CLIA [id number] [address] [place] [address] [place] Differential cell count method Nom (Bld) Auto Normal [facility] Comment on above: Order Comment: Speci men Type: BLOOD SPECIMEN Ordering Facility[facility] Address: [address] [place] [address] Performed By: #### 2 276-4, 2132-01, 2283-12 #### [facility] [facility] CLIA [id number] [address] [place] [address] [place] Eosinophils (Bld) [#/Vol] 0.09 10*3/uL Normal <0.46 [facility] Comment on above: Order Comment: Speci men Type: BLOOD SPECIMEN [facility] Facility[facility] Address: [address] [place] [address] Performed By: #### 2 276-4, 2132-01, 2283-12 #### [facility] CLIA [id number] [address] [place] [address] [place] Eosinophils/100 WBC (Bld) 1.3 % Normal [facility] Comment on above: Order Comment: Speci men Type: BLOOD SPECIMEN [facility]ing Facility: [facility] Address: [address] [place] [address] Performed By: #### 2 276-4, 2132-01, 2283-12 #### [facility] CLIA [id number] [address] [place] [address] [place] Erythrocyte distribution width (RBC) [Ratio] 12.6 % Normal 11.5-15.0 [facility] Comment on above: Order Comment: Speci men Type: BLOOD SPECIMEN [facility]: [facility] Address: [address] [place] [address] Performed By: #### 2 276-4, 2132-01, 2283-12 #### [facility] CLIA [id number] [address] [place] [address] [place] Hematocrit (Bld) [Volume fraction] 38.0 % Normal 36.0-46.0 [facility] Comment on above: Order Comment: Speci men Type: BLOOD SPECIMEN [facility]: [facility] Address: [address] [place] [address] Performed By: #### 2 276-4, 2132-01, 2283-12 #### [facility] CLIA [id number] [address] [place] [address] [place] Hemoglobin (Bld) [Mass/Vol] 12.8 g/dL Normal 11.5-15.5 [facility] Comment on above: Order Comment: Speci men Type: BLOOD SPECIMEN [facility] Address: [address] [place] [address] Performed By: #### 2 276-4, 2132-01, 2283-12 #### [facility] CLIA [id number] [address] [place] [address] [place] Immature granulocytes (Bld) [#/Vol] 10*3/uL Normal <0.10 [facility] Comment on above: Order Comment: Speci men Type: BLOOD SPECIMEN [facility] Address: [address] [place] [address] Performed By: #### 2 276-4, 2132-01, 2283-12 #### [facility] CLIA [id number] [address] [place] [address] [place] Immature granulocytes/100 WBC (Bld) 0.1 % Normal [facility] Comment on above: Order Comment: Speci men Type: BLOOD SPECIMEN [facility] Address: [address] [place] [address] Performed By: #### 2 276-4, 2132-01, 2283-12 #### [facility] CLIA [id number] [address] [place], [place] [address] [place] Lymphocytes (Bld) [#/Vol] 3.49 10*3/uL Normal 1.00-4.00 [facility] Comment on above: Order Comment: Speci men Type: BLOOD SPECIMEN [facility] Address: [address] [place] [address] Performed By: #### 2 276-4, 2132-01, 2283-12 #### [facility] CLIA [id number] [address] [place] [address] [place] Lymphocytes/100 WBC (Bld) 48.6 % Normal [facility] Comment on above: Order Comment: Speci men Type: BLOOD SPECIMEN [facility] Address: [address] [place] [address] Performed By: #### 2 276-4, 2132-01, 2283-12 #### [facility] CLIA [id number] [address] [place] [address] [place] MCH (RBC) [Entitic mass] 30.0 pg Normal 26.0-34.0 [facility] Comment on above: Order Comment: Speci men Type: BLOOD SPECIMEN [facility] Address: [address] [place] [address] Performed By: #### 2 276-4, 2132-01, 2283-12 #### [facility] CLIA [id number] [address] [place] [address] [place] MCHC (RBC) [Mass/Vol] 33.7 g/dL Normal 30.5-36.0 [facility] Comment on above: Order Comment: Speci men Type: BLOOD SPECIMEN [facility] Address: [address] [place] [address] Performed By: #### 2 276-4, 2132-01, 2283-12 #### [facility] CLIA [id number] [address] [place] [address] [place] MCV (RBC) [Entitic vol] 89.2 fL Normal 80.0-100.0 [facility] Comment on above: Order Comment: Speci men Type: BLOOD SPECIMEN [facility] Address: [address] [place] [address] Performed By: #### 2 276-4, 2132-01, 2283-12 #### [facility] CLIA [id number] [address] [place] [address] [place] Monocytes (Bld) [#/Vol] 0.48 10*3/uL Normal <0.87 [facility] Comment on above: Order Comment: Speci men Type: BLOOD SPECIMEN [facility] Address: [address] [place] [address] Performed By: #### 2 276-4, 2132-01, 2283-12 #### [facility] CLIA [id number] [address] [place] [address] [place] Monocytes/100 WBC (Bld) 6.7 % Normal [facility] Comment on above: Order Comment: Speci men Type: BLOOD SPECIMEN [facility] Address: [address] [place] [address] Performed By: #### 2 276-4, 2132-01, 2283-12 #### [facility] CLIA [id number] [address] [place] [address] [place] Neutrophils (Bld) [#/Vol] 3.09 10*3/uL Normal 1.45-7.50 [facility] Comment on above: Order Comment: Speci men Type: BLOOD SPECIMEN [facility] Address: [address] [place] [address] Performed By: #### 2 276-4, 2132-01, 2283-12 #### [facility] CLIA [id number] [address] [place] [address] [place] Neutrophils/100 WBC (Bld) 43.0 % Normal [facility] Comment on above: Order Comment: Speci men Type: BLOOD SPECIMEN [facility] Address: [address] [place] [address] Performed By: #### 2 276-4, 2132-01, 2283-12 #### [facility] CLIA [id number] [address] [place] [address] [place] Nucleated RBC (Bld) [#/Vol] 10*3/uL Normal <0.01 [facility] Comment on above: Order Comment: Speci men Type: BLOOD SPECIMEN [facility] Address: [address] [place] [address] Performed By: #### 2 276-4, 2132-01, 2283-12 #### [facility] CLIA [id number] [address] [place] [address] [place] Nucleated RBC/100 WBC (Bld) [Ratio] 0.0 /100 WBC Normal [facility] Comment on above: Order Comment: Speci men Type: BLOOD SPECIMEN [facility] Address: [address] [place] [address] Performed By: #### 2 276-4, 2132-01, 2283-12 #### [facility] CLIA [id number] [address] [place] [address] [place] Platelet mean volume (Bld) [Entitic vol] 9.2 fL Normal 9.0-12.7 [facility] Comment on above: Order Comment: Speci men Type: BLOOD SPECIMEN [facility] Address: [address] [place] [address] Performed By: #### 2 276-4, 2132-01, 2283-12 #### [facility] CLIA [id number] [address] [place] [address] [place] Platelets (Bld) [#/Vol] 361 10*3/uL Normal 150-400 [facility] Comment on above: Order Comment: Speci men Type: BLOOD SPECIMEN [facility] Address: [address] [place] [address] Performed By: #### 2 276-4, 9, 8 #### [facility] CLIA [id number] [address] [place] [address] [place] RBC (Bld) [#/Vol] 4.26 10*6/uL Normal 3.90-5.20 [facility] Comment on above: Order Comment: Speci men Type: BLOOD SPECIMEN [facility] Address: [address] [place] [address] Performed By: #### 2 276-4, 9, 8 #### [facility] CLIA [id number] [address] [place] [address] [place] WBC (Bld) [#/Vol] 7.18 10*3/uL Normal 3.70-11.00 [facility] Comment on above: Order Comment: Speci men Type: BLOOD SPECIMEN [facility] Address: [address] [place] [address] Performed By: #### 2 276-4, 9, 2283-12 #### [facility] CLIA [id number] [address] [place] [address] [place] Comprehensive metabolic 2000 panelon 09-05-2023 Albumin [Mass/Vol] 4.0 g/dL Normal 3.9-4.9 [facility] Comment on above: Order Comment: Speci men Type: BLOOD SPECIMEN [facility] Address: [address] [place] [address] Performed By: #### 2 4323-8 #### [facility] CLIA [id number] [address] [place] [address] ALP [Catalytic activity/Vol] 91 U/L Normal 34-123 [facility] Comment on above: Order Comment: Speci men Type: BLOOD SPECIMEN [facility] Address: [address] [place] [address] Performed By: #### 2 4323-8 #### [facility] CLIA [id number] [address] [place] [address] ALT [Catalytic activity/Vol] 15 U/L Normal 7-38 [facility] Comment on above: Order Comment: Speci men Type: BLOOD SPECIMEN [facility] Address: [address] [id number] Performed By: #### 2 4323-8 #### [facility] CLIA [id number] [address] [place] [address] Anion gap [Moles/Vol] 10 mmol/L Normal 9-18 [facility] Comment on above: Order Comment: Speci men Type: BLOOD SPECIMEN [facility] Address: [address] [place] [address] Performed By: #### 2 4323-8 #### [facility] CLIA [id number] [address] [place] [address] AST [Catalytic activity/Vol] 13 U/L Normal 13-35 [facility] Comment on above: Order Comment: Speci men Type: BLOOD SPECIMEN [facility] Address: [address] [place], [place] [address] Performed By: #### 2 4323-8 #### [facility] CLIA [id number] [address] [place] [address] Bilirubin [Mass/Vol] 0.3 mg/dL Normal 0.2-1.3 [facility] Comment on above: Order Comment: Speci men Type: BLOOD SPECIMEN [facility] Address: [address] [place] [address] Performed By: #### 2 4323-8 #### [facility] CLIA [id number] [address] [place] [address] Calcium [Mass/Vol] 9.5 mg/dL Normal 8.5-10.2 [facility] Comment on above: Order Comment: Speci men Type: BLOOD SPECIMEN [facility] Address: [address] [place] [address] Performed By: #### 2 4323-8 #### [facility] CLIA [id number] [address] [place] [address] Chloride [Moles/Vol] 106 mmol/L High 97-105 [facility] Comment on above: Order Comment: Speci men Type: BLOOD SPECIMEN [facility] Address: [address] [place] [address] Performed By: #### 2 4323-8 #### [facility] CLIA [id number] [address] [place] [address] CO2 [Moles/Vol] 26 mmol/L Normal 22-30 [facility] Comment on above: Order Comment: Speci men Type: BLOOD SPECIMEN [facility] Address: [address] [place] [address] Performed By: #### 2 4323-8 #### [facility] CLIA [id number] [address] [place] [address] Creatinine [Mass/Vol] 0.75 mg/dL Normal 0.58-0.96 [facility] Comment on above: Order Comment: Speci men Type: BLOOD SPECIMEN [facility] Address: [address] [place] [address] Performed By: #### 2 4323-8 #### [facility] CLIA [id number] [address] [place] [address] Creatinine and Glomerular filtration rate.predicted panel (S/P/Bld) 109 mL/min/1.73m??? Normal >=60 [facility] Comment on above: Order Comment: Speci men Type: BLOOD SPECIMEN [facility] Address: [address] [place] [address] Result Comment: Stephani mated Glomerular Filtration Rate [...] GFR. Performed By: #### 2 4323-8 #### [facility] CLIA [id number] [address] [place] [address] Glucose [Mass/Vol] 104 mg/dL High 74-99 [facility] Comment on above: Order Comment: Speci augustine Type: BLOOD SPECIMEN [facility] Address: [address] [place] [address] Result Comment: The [place] Diabetes Association (ADA) provides guidance for cutoff [...] Standards of Medical Care in Diabetes 2016, [place] Diabetes Association. Diabetes Care. 2016.39(Suppl 1). Performed By: #### 2 4323-8 #### [facility] CLIA [id number] [address] [place] [address] Potassium [Moles/Vol] 4.2 mmol/L Normal 3.7-5.1 [facility] Comment on above: Order Comment: Laury bradshaw Type: BLOOD SPECIMEN [facility] Address: [address] [place] [address] Performed By: #### 2 4323-8 #### [facility] CLIA [id number] [address] [place] [address] Protein [Mass/Vol] 7.4 g/dL Normal 6.3-8.0 [facility] Comment on above: Order Comment: Laury bradshaw Type: BLOOD SPECIMEN [facility] Address: [address] [place] [address] Performed By: #### 2 4323-8 #### [facility] CLIA [id number] [address] [place] [address] Sodium [Moles/Vol] 142 mmol/L Normal 136-144 [facility] Comment on above: Order Comment: Speci men Type: BLOOD SPECIMEN [facility] Address: [address] [place] [address] Performed By: #### 2 4323-8 #### [facility] CLIA [id number] [address] [place] [address] Urea nitrogen [Mass/Vol] 12 mg/dL Normal 7-21 [facility] Comment on above: Order Comment: Speci men Type: BLOOD SPECIMEN [facility] Address: [address] [place] [address] Performed By: #### 2 4323-8 #### [facility] CLIA [id number] [address] [place] [address] Ferritin SerPl-mCncon 2023 Ferritin [Mass/Vol] 86.7 ng/mL Normal 14.7-205.1 [facility] Comment on above: Order Comment: Speci men Type: BLOOD SPECIMEN [facility] Address: [address] [place] [address] Performed By: #### 2 276-4, 9, 8 #### [facility] CLIA [id number] [address] [place] [address] [place] Folate SerPl-mCncon 09-05-19 Folate [Mass/Vol] 12.0 ng/mL Normal >4.7 [facility] Comment on above: Order Comment: Speci men Type: BLOOD SPECIMEN [facility] Address: [address] [place] [address] Performed By: #### 2 276-4, 9, 8 #### [facility] CLIA [id number] [address] [id number] [address] [place] H. pylori IgG IA Qlon 2023 H. PYLORI IGG, QUAL Negative Normal Negative [facility] Comment on above: Order Comment: Laury bradshaw Type: BLOOD SPECIMEN [facility] Address: [address] [place] [address] Result Comment: Cash ot exclude H. pylori infection if the specimen collected 3-4 weeks after onset of symptoms. Performed By: #### 2 276-4, 2132-9, 2284-8 #### [facility] CLIA [id number] [address] [place] [address] [place] HbA1c (Bld)on 09-05-2023 Average glucose Estimated from glycated hemoglobin (Bld) [Mass/Vol] 108 mg/dL Normal [facility] Comment on above: Order Comment: Laury bradshaw Type: BLOOD SPECIMEN [facility] Address: [address] [place] [address] Result Comment: eAG: (Estimated average glucose) is a calculated value from HgbA1c and is sales representative graphic art of the average blood glucose level in the last 2-3 month period. Performed By: #### 5 5454-3 #### [facility] CLIA [id number] [address] [place] [address] [place] HbA1c (Bld) [Mass fraction] 5.4 % Normal 4.3-5.6 [facility] Comment on above: Order Comment: Laury bradshaw Type: BLOOD SPECIMEN [facility] Address: [address] [place] [address] Result Comment: Amer [place] Diabetes Association guidelines indicate that patients with HgbA1c in the range 5.7-6.4% are at increased risk for development of diabetes, and intervention by lifestyle modification may be beneficial. HgbA1c greater or equal to 6.5% is considered diagnostic of diabetes. Performed By: #### 5 5454-3 #### [facility] CLIA [id number] [address] [place] [address] [place] Iron and Iron binding capaci ty panelon 09-05-2023 Iron [Mass/Vol] 94 ug/dL Normal 41-186 [facility] Comment on above: Order Comment: Speci men Type: BLOOD SPECIMEN [facility] Address: [address] [place] [address] Performed By: #### 5 0190-8, 3016-3, 52192-3 #### [facility] CLIA [id number] [address] [place] [address] [place] #### 17663-2 #### [facility] CLIA [id number] [address] [place] [address] [place] [facility] CLIA [id number] [address] [place], [place] [address] Iron binding capacity [Mass/Vol] 310 ug/dL Normal 232-386 [facility] Comment on above: Order Comment: Speci men Type: BLOOD SPECIMEN [facility] Address: [address] [place] [address] Performed By: #### 5 0190-8, 6-3, 50768-2 #### [facility] CLIA [id number] [address] [place] [address] [place] #### 25397-3 #### [facility] CLIA [id number] [address] [place] [address] [place] [facility] CLIA [id number] [address] [place] [address]65 Iron/TIBC [Molar ratio] 30.3 % Normal 15.0-57.0 [facility] Comment on above: Order Comment: Speci men Type: BLOOD SPECIMEN [facility] Address: [address] [place] [address] Performed By: #### 5 0190-8, 3016-3, 72110-4 #### [facility] CLIA [id number] [address] [place] [address] [place] #### 30827-4 #### [facility] CLIA [id number] [address] [place] [address] [place] [facility] CLIA [id number] [address] [place] [address]37 Lipid 1996 panelon 4 Cholesterol [Mass/Vol] 179 mg/dL Normal <200 [facility] Comment on above: Order Comment: Abbii men Type: BLOOD SPECIMEN [facility] Address: [address] [place] [address] Result Comment: <200 mg/dL, Desirable 200-239 mg/dL, Borderline high >239 mg/dL, High Performed By: #### 2 276-4, 2132-01, 2283-12 #### [facility] CLIA [id number] [address] [place] [address] [place] Cholesterol in HDL [Mass/Vol] 45 mg/dL Normal >39 [facility] Comment on above: Order Comment: Laury bradshaw Type: BLOOD SPECIMEN [facility] Address: [address] [place] [address] Result Comment: 40-5 9 mg/dL, Acceptable >59 mg/dL, High: Negative risk factor for coronary heart disease <40 mg/dL, Low: Positive risk factor for coronary heart disease Performed By: #### 2 276-4, 2132-01, 2283-12 #### [facility] CLIA [id number] [address] [place] [address] [place] Cholesterol in LDL [Mass/Vol] 119 mg/dL High <100 [facility] Comment on above: Order Comment: Laury bradsahw Type: BLOOD SPECIMEN [facility] Address: [address] [place] [address] Result Comment: <100 mg/dL, Optimal 100-129 mg/dL, Near optimal/above optimal 130-159 mg/dL, Borderline high 160-189 mg/dL, High >189 mg/dL, Very high Secondary prevention optimal LDL Cholesterol levels are recommended to be < 70 mg/dL Performed By: #### 2 276-4, 9, 2283-12 #### [facility] CLIA [id number] [address] [place] [address] [place] Cholesterol in LDL/Cholesterol in HDL [Mass ratio] 2.64 {ratio} High <2.54 [facility] Comment on above: Order Comment: Laury bradshaw Type: BLOOD SPECIMEN [facility] Address: [address] [place] [address] Result Comment: Refe rence: 1. National Cholesterol Education Program ATP III Guideline At-A-Glance Quick Desk Reference: National Heart, Lung, and Blood [place]. National Institutes of Health. 2001: NIH Publication No. 01-3305. 2. An International Atherosclerosis Society position paper: global recommendations for the management of dyslipidemia: executive summary, Atherosclerosis. 2014: 232(2):410-413. Performed By: #### 2 276-4, 2132-01, 2283-12 #### [facility] CLIA [id number] [address] [place] [address] [place] Cholesterol in VLDL [Mass/Vol] 15 mg/dL Normal <30 [facility] Comment on above: Order Comment: Laury bradshaw Type: BLOOD SPECIMEN [facility] Address: [address] [place] [address] Performed By: #### 2 276-4, 9, 2283-12 #### [facility] CLIA [id number] [address] [place] [address] [place] Cholesterol non HDL [Mass/Vol] 134 mg/dL High <130 [facility] Comment on above: Order Comment: Laury bradshaw Type: BLOOD SPECIMEN [facility] Address: [address] [place] [address] Result Comment: <130 mg/dL, Optimal 130-159 mg/dL, Near optimal/above optimal 160-189 mg/dL, Borderline high 190-219 mg/dL, High >219 mg/dL, Very high Secondary prevention optimal non HDL Cholesterol levels are recommended to be <100 mg/dL Performed By: #### 2 276-4, 2131-9, 2283-12 #### [facility] CLIA [id number] [address] [place] [address] [place] Cholesterol.total/Cho lesterol in HDL [Mass ratio] 3.98 {ratio} Normal <5.10 [facility] Comment on above: Order Comment: Speci men Type: BLOOD SPECIMEN [facility] Address: [address] [place] [address] Performed By: #### 2 276-4, 9, 2283-12 #### [facility] CLIA [id number] [address] [place] [address] [place] FASTING TIME 12 hrs Normal [facility] Comment on above: Order Comment: Speci men Type: BLOOD SPECIMEN [facility] Address: [address] [place] [address] Performed By: #### 2 276-4, 9, 2283-12 #### [facility] CLIA [id number] [address] [place] [address] [place] Triglyceride [Mass/Vol] 74 mg/dL Normal <150 [facility] Comment on above: Order Comment: Speci men Type: BLOOD SPECIMEN [facility] Address: [address] [place] [address] Result Comment: <150 mg/dL, Normal 150-199 mg/dL, Borderline high 200-499 mg/dL, High >499 mg/dL, Very high Performed By: #### 2 276-4, 9, 2283-12 #### [facility] CLIA [id number] [address] [place] [address] [place] NT-proBNP [facility] 09-04 Natriuretic peptide.B prohormone N-Terminal [Mass/Vol] 48 pg/mL Normal <125 [facility] Comment on above: Order Comment: Speci men Type: BLOOD SPECIMEN [facility] Address: [address] [place] [address] Performed By: #### 2 276-4, 9, 2283-12 #### [facility] CLIA [id number] [address] [place] [address] [place] TSH SerPl-aCncon 09-05-2023 TSH Qn 6.440 m[IU]/L High 0.270-4.200 [facility] Comment on above: Order Comment: Laury bradshaw Type: BLOOD SPECIMEN [facility] Address: [address] [place] [address] Result Comment: If t he patient is , TSH reference range varies by gestational period: First Trimester (weeks 9-12): 0.180-2.990 mIU/L Second Trimester: 0.110-3.980 mIU/L Third Trimester: 0.480-4.710 mIU/L Seth Crews et al. A Practical Approach for the Verifications and Determination of Site- and Trimester-Specific Reference Intervals for Thyroid Function tests in . Thyroid, 2019:29:3:412-420. Zhang E, et al. 2017 Guidelines of the [place] Thyroid Association for the Diagnosis and Management of Thyroid Disease during and the . Thyroid, 2017:27:3:315-389. Performed By: #### 2 276-4, 9, 2283-12 #### [facility] CLIA [id number] [address] [place], [place] [address] [place] VITAMIN B1 (THIAMINE), WHOLE BLOODon 09-05-2023 Thiamine (Bld) [Moles/Vol] 179.2 nmol/L Normal 84.3-213.3 [facility] Comment on above: Order Comment: Laury bradshaw Type: BLOOD SPECIMEN Ordering Facility: [facility] Address: [address] [place] [address] Result Comment: This assay measures the concentration of thiamine diphosphate (TDP), the primary active form of vitamin B1. Approximately 90 percent of vitamin B1 present in whole blood is TDP. Thiamine and thiamine monophosphate, which comprise the remaining 10 percent, are not measured. This test was developed and its performance characteristics determined by [facility]ology [facility] Laboratory [facility] [place] ([facility] It has not been cleared or approved by the FDA. -[facility] is regulated under CLIA as qualified to perform high-complexity testing. This test is used for clinical purposes. It should not be regarded as investigational or for research. Performed By: #### B 1WB #### [facility] CLIA [id number] [address] [place] [address] [place] Vit B12 SerPl-mCncon 09-04- 024 Cobalamin (Vitamin B12) [Mass/Vol] 612 pg/mL Normal 232-1245 [facility] Comment on above: Order Comment: Speci men Type: BLOOD SPECIMEN [facility]ing Facility: [facility] Address: [address] [place] [address] Performed By: #### 2 276-4, 2132-9, 2284-8 #### [facility] CLIA [id number] [address] [place] [address] [place] Glucose - FINGER STICKon Glucose [Mass/Vol] 5.4 mg/dL [employer] Other PAP ACOG PANEL 2: 30 to 65on 06-10-2022 . . Normal [facility] Comment on above: Result Comment: Perf ormed at: WB Performed By: #### 4 [id number] #### [facility] [address] [place] [address] Dr. Sachin Coates Age Gdln ACOG Testing 30-65 Normal [facility] Comment on above: Performed By: #### 4 [id number] #### [facility] [address] [place] [address] Dr. Sachin Coates DIAGNOSIS: Comment [facility] Comment on above: Result Comment: NEGA TIVE FOR INTRAEPITHELIAL LESION OR MALIGNANCY. CELLULAR CHANGES ASSOCIATED WITH INFLAMMATION ARE PRESENT. THIS SPECIMEN WAS RESCREENED PART OF OUR UNIT RECEPTIONIST PROGRAM. Performed at: WB Performed By: #### 4 [id number] #### [facility] [address] [place] [address] Dr. Sachin Coates HPV Aptima Negative Normal Negative [facility] Comment on above: Result Comment: This nucleic acid amplification test detects fourteen high-risk HPV types (16,18,31,33,35,39,45,51,52,56,58,59,66,68) without differentiation. Performed at: =G Performed By: #### 4 [id number] #### [facility] [address] [address] [address] Sachin Coates HPV Genotype Reflex Comment Normal [facility] Comment on above: Result Comment: Crit eria not met, HPV Genotype not performed. Performed at: WB Performed By: #### 4 [id number] #### [facility] [address] [place] [address] Dr. Sachin Coates Methodology: Comment Normal [facility] Comment on above: Result Comment: This liquid based ThinPrep(R) pap test was screened with the use of an image guided system. Performed at: WB Performed By: #### 4 [id number] #### [facility] [address] [place] [address] Dr. Sachin Coates Note: Comment Normal [facility] Comment on above: Result Comment: The Pap smear is a screening test designed to aid in the detection of premalignant and malignant conditions of the uterine cervix. It is not a diagnostic procedure and should not be used as the sole means of detecting cervical cancer. Both false-positive and false-negative reports do occur. . Performed at: WB Performed By: #### 4 [id number] #### [facility] [address] [place] [address] Dr. Sachin Coates Performed by: Comment Normal [facility] Comment on above: Result Comment: Peyton Beverly, Crate Liner (ASCP) Performed at: WB Performed By: #### 4 [id number] #### [facility] [address] [place] [address] Dr. Sachin Coates QC reviewed by: Comment Normal [facility] Comment on above: Result Comment: Cielo Cochran, Supervisory Crate Liner (ASCP) Performed at: WB Performed By: #### 4 [id number] #### [facility] [address] [address] [address] Sachin Coates Specimen adequacy: Comment Normal [facility] Comment on above: Result Comment: Sati sfactory for evaluation. Endocervical and/or squamous metaplastic cells (endocervical component) are present. Performed at: WB Performed By: #### 4 [id number] #### [facility] [address] [address] [address] Sachin Coates COVID-19 SOFIAOrdered By: Dario To on 12-02-2021 SARS-CoV+SARS-CoV-2 (COVID-19) Ag IA.rapid Ql (Resp) Negative Negative [facility] Comment on above: This is a duplicate Zuleyma SARS Antigen (PAMELLA) result to be used for statistical tracking purpose only. No Panel InformationOrdered By: Ck To on 12-02-2021 SARS Antigen (LFIA) [facility] Chart Updateon 08-08-2020 Chart Update [...] Aug 08 2020 10:18AM EST (Author) Normal [employer] J2EE APPLICATION DEVELOPER - Procedure Visiton 0 07-10-2020 J2EE APPLICATION DEVELOPER - Procedure Visit Chief Complaint IUI Active [...] ESTRADIOLon 07-08-2020 ESTRADIOL 186 pg/mL Normal [facility] Comment on above: Result Comment: Estr adiol measurement is performed using the [employer] (Wayin) Access Sensitive Estradiol Immunoassay. Estradiol testing is performed using a different test methodology at [facility] than other [facility]. Direct result comparison should only be made within the same method. REF VALUES EARLY FOLLICULAR 22-115 MID FOLLICULAR 25-115 OVULATORY PEAK 32-517 MID LUTEAL 37-246 POSTMENOPAUSE <15- 25 MALE <15- 32 Performed By: #### G [facility] #### [facility] [address] [place] [address] Estradiol, Serumon E2 [Mass/Vol] 186 pg/mL -OBGYN-[facility] an 310 IVF Work Phone: Comment on above: Estradiol measuremen t is performed using the Shruthi iLumen Access Sensitive Estradiol Immunoassay. Estradiol testing is performed using a different test methodology at [facility] than other [facility]. Direct result comparison should only be made within the same method.REF VALUESEARLY FOLLICULAR 22-115MID FOLLICULAR 25-115OVULATORY PEAK 32-517MID LUTEAL 37-246POSTMENOPAUSE <15- 25MALE <15- 32 LUTEINIZING HORMONEon 2020 LUTEINIZING HORMONE 9.5 IU/L Normal [facility] Comment on above: Result Comment: Lute inizing Hormone [LH] is performed using the Shruthi J [place] Access Immunoassay. LH testing is performed using a different test methodology at [facility] than other [facility]. Direct result comparison should only be made within the same method. REF VALUES FOLLICULAR PHASE 1.5-10.0 MID-CYCLE 13.0-72.0 LUTEAL PHASE 0.5-13.0 MENOPAUSE 15.0-65.0 PREPUBERTY 0- 3.0 CHILDREN 0- 6.0 ADULT MALE 1.0- 9.0 Performed By: #### G [facility] #### [facility] [address] [place] [address] Luteinizing Hormone, Serumon 07-08-2020 Lutropin Qn 9.5 {IU/L} [id number]-BADHB-[id number] an 310 IVF Work Phone: Comment on above: Luteinizing Hormone [LH] is performed using the Shruthi [place] Access Immunoassay. LH testing is performed using a different test methodology at [facility] than [facility]. Direct result comparison should only be made within the same method.REF VALUESFOLLICULAR PHASE 1.5-10.0MID-CYCLE 13.0-72.0LUTEAL PHASE 0.5-13.0MENOPAUSE 15.0-65.0PREPUBERTY 0- 3.0CHILDREN 0- 6.0ADULT MALE 1.0- 9.0 TYPE + SCREENon 07-06-2020 ABO TYPE A Normal [facility] Comment on above: Performed By: #### T +S #### [facility] [address] [place] [address] RH TYPE Positive Normal [facility] Comment on above: Performed By: #### T +S #### [facility] [address] [place] [address] ESTRADIOLon 07-05-2020 ESTRADIOL 58 pg/mL Normal [facility] Comment on above: Result Comment: Estr adiol measurement is performed using the Shruthi iLumen Access Sensitive Estradiol Immunoassay. Estradiol testing is performed using a different test methodology at [facility] than other [facility]. Direct result comparison should only be made within the same method. REF VALUES EARLY FOLLICULAR 22-115 MID FOLLICULAR 25-115 OVULATORY PEAK 32-517 MID LUTEAL 37-246 POSTMENOPAUSE <15- 25 MALE <15- 32 Performed By: #### [facility] #### [facility] [address] [place] [address] Estradiol, Serumon 1 E2 [Mass/Vol] 58 pg/mL MG-OBGYN-Ri sm an 310 IVF Work Phone: Comment on above: Estradiol measuremen t is performed using the Shruthi iLumen Access Sensitive Estradiol Immunoassay. Estradiol testing is performed using a different test methodology at [facility] than other [facility]. Direct result comparison should only be made within the same method.REF VALUESEARLY FOLLICULAR 22-115MID FOLLICULAR 25-115OVULATORY PEAK 32-517MID LUTEAL 37-246POSTMENOPAUSE <15- 25MALE <15- 32 Hematologyon 07-05-2020 ABO group Nom (Bld) A MG-MALTED MILK MASHER-Rism an 310 IVF Work Phone: Blood group antibody screen Ql Negative QE-ORYQS-Vrvh an 310 IVF Work Phone: Rh immune globulin screen (Bld) [Interp] Positive MG-OBGYN-R ism an 310 IVF Work Phone: LUTEINIZING HORMONEon 2020 LUTEINIZING HORMONE 9.2 IU/L Normal [facility] Comment on above: Result Comment: Lute inizing Hormone [LH] is performed using the Shruthi iLumen Access Immunoassay. LH testing is performed using a different test methodology at [facility] than other [facility]. Direct result comparison should only be made within the same method. REF VALUES FOLLICULAR PHASE 1.5-10.0 MID-CYCLE 13.0-72.0 LUTEAL PHASE 0.5-13.0 MENOPAUSE 15.0-65.0 PREPUBERTY 0- 3.0 CHILDREN 0- 6.0 ADULT MALE 1.0- 9.0 Performed By: #### L H #### [facility] [address] [place] [address] Luteinizing Hormone, Serumon 07-05-2020 Lutropin Qn 9.2 {IU/L} UQ-QKDXA-Tljs an 310 IVF Work Phone: Comment on above: Luteinizing Hormone [LH] is performed using the Shruthi [place] Access Immunoassay. LH testing is performed using a different test methodology at [facility] than other [facility]. Direct result comparison should only be made within the same method.REF VALUESFOLLICULAR PHASE 1.5-10.0MID-CYCLE 13.0-72.0LUTEAL PHASE 0.5-13.0MENOPAUSE 15.0-65.0PREPUBERTY 0- 3.0CHILDREN 0- 6.0ADULT MALE 1.0- 9.0 J2EE APPLICATION DEVELOPER - Office Visiton 02-0 J2EE APPLICATION DEVELOPER - Office Visit Diagnoses/Problems Assessed Morbid obesity [...] [facility] [phone] [place] [phone] [place] 1 Amended By: Bayron Mccarty; Jun [...] MD [facility] [phone] Julien [phone] [place] Appointment Duration:. 25 minutes; greater than half of the time was spent on counseling. 1 Amended By: Bayron Mccarty; Jun 19 2020 10:16 AM ESTChief Complaint follow up History of Present Qopkdey7606/19/2020 9:30AM JALEESA ARRIETA , 30 year is contacted for an (audio-visual, or audio only) Telehealth visit. Today's visit was provided through telemedicine conferencing: Using Zuv[employer] platform. Consent: The concept of telemedicine? has [...] is a telehealth appointment Results/Data HCG, Beta [id number] 11:58AMBayron Mccarty Test NameResultFlagReference HCG, Beta Quantitative<2 [...] performed using a different test methodology at [facility] than other [facility]. Direct result comparison should only be made within the same method. REF VALUES NON FEMALE <5 MALES <5 Progesterone, [id number] 11:58AMBayron Mccarty Test NameResultFlagReference Progesterone, Serum10.5 ng/mL REF VALUES MALE <0.3- 1.2 FOLLICULAR PHASE <0.3- 1.4 LUTEAL PHASE 3.3-25.6 MID-LUTEAL PHASE 4.4-28.0 POSTMENOPAUSAL <0.3- 0.7 FEMALES: 1ST TRIMESTER 11.2- 90.0 2ND TRIMESTER 25.6- 89.4 3RD TRIMESTER 48.4-422.5 . Patients receiving DHEA-S supplements may show false elevation of progesterone for results near 1.0 ng/mL. Contact laboratory at [phone] if alternative testing is needed. CMV IgG and IgM [id number] 11:58AMFincollin, Bayron Test NameResultFlagReference CMV IgG AntibodyREACTIVEASee Below Reference Range: NONREACTIVE CMV IGM [id number] 11:58AMBibiana Bayron Test NameResultFlagReference CMV IGM AB<30.00 [...] testing in two or more weeks. Xray Lqdggguintblpuobvvh72Evc 2020 12:00AMBayron Mccarty [Mar 28, 2020 9:43AM Bayron Mccarty] Reason: Unspecified for Xray Hysterosalpingogram Test NameResultFlagReference Xray Hysterosalpingogram Please click on the link to view the study images Anti Mullerian [id number] 12:03PMBayron Mccarty Test NameResultFlagReference Anti Mullerian Hormone6.36 ng/mL For assays employing antibodies, the possibility exists for interference by heterophile antibodies in the samples.1 1.Oswald Crews. Interferences in Immunoassays - still a threat. Clin. Chem. 2000; 46: 7878-1334. This test was developed and its performance characteristics determined by [employer]. It has not been cleared or approved by the Food and Drug Administration. Reference Range: Females 26 - 30y: 1.03 - 11.10 Median 4.20 AMH concentrations of >= 1.06 ng/mL is correlated with a better response to ovarian stimulation, produced more retrievable oocytes and higher odds of live according to Carey et al. Fertility and Sterility. 2010: 94:7509-5613. The current AMH test method correlates with [...] exclude an AMH-secreting ovarian tumor. Rubella IgG [id number] 12:03PMBibiana Bayron Test NameResultFlagReference Rubella IgG AntibodyPOSITIVE [...] TSH WITH REFLEX TO FREE T4 IF [id number] 12:03PMBayron Mccarty Test NameResultFlagReference Thyroid Stimulating Hormone, Serum2.17 mIU/LSee Below Reference Range: 0.44 - 3.98 TSH testing is performed using different testing methodology at [facility] than at other [facility]. Direct result comparisons should only be made within the same method. Varicella Zoster IgG Fcewzznf29Qty1275 12:03PMBayron Mccarty Test NameResultFlagReference Varicella Zoster IgG [...] altered results in serological assays. Vitamin D 25-Qdafcbz70Wzf4493 12:03PMBayron Mccarty Test NameResultFlagReference Vitamin D 25-Hydroxy, Level17 ng/mLA . DEFICIENCY: < 20 NG/ML INSUFFICIENCY: 20-29 NG/ML SUFFICIENCY: 30-100 NG/ML THIS ASSAY ACCURATELY QUANTIFIES THE SUM OF VITAMIN D3, 25-HYDROXY AND VIT D2,25-HYDROXY. { 17-Hydroxyprogesterone, [id number] 12:03PMBayron Mccarty Test NameResultFlagReference 17-Hydroxyprogesterone, Serum33 ng/dL [...] Endocrinol Metab. 1991;73:674-686; J Clin Endocrinol Metab. 1989;69;3583-5424; J Clin Endocrinol Metab. 1994;78:226-270. Pediatr Res 1988;23:525-529. MedLinePlus (accessed 10/25/13). This test was developed and its analytical performance characteristics have been determined by [employer] [place], [place]. It has not been cleared or approved by the U.S. Food and Drug Administration. This assay has been validated pursuant to the CLIA regulations and is used for clinical purposes. DHEA Sulfate, Fpmic10Ohn0115 12:03Bayron Silva Test NameResultFlagReference DHEA Sulfate, Sviyu765 ug/dL65 - 395 MATURITY-BASED REFERENCE RANGES: PUBERTAL [...] laboratory for further information. Testosterone Free + Xmsfi33Lme1014 12:03PMBibiana Bayron Test NameResultFlagReference Testosterone, Total63 ng/dLH2-45 For additional information, please refer to http://education.Phantom Pay/faq/ TotalTestosteroneLCMSMSF AQ165 (This link is being provided for informational/ educational purposes only.) This test was developed and its analytical performance characteristics have been determined by [employer] [place], [place]. It has not been cleared or approved by the U.S. Food and Drug Administration. This assay has been validated pursuant to the CLIA regulations and is used for clinical purposes. Testosterone, Free Serum8.8 pg/mLH0.1-6.4 This test was developed and its analytical performance characteristics have been determined by [facility] [place] It has not been cleared or approved by the U.S. Food and Drug Administration. This assay has been validated pursuant to the CLIA regulations and is used for clinical purposes. Hemoglobin [id number] 12:03PMBibiana Bayron Test NameResultFlagReference Hemoglobin A1C, Level5.5 % Diagnosis of Diabetes-Adults Non-Diabetic: < or = 5.6% Increased risk for developing diabetes: 5.7-6.4% Diagnostic of diabetes: > or = 6.5% . Monitoring of Diabetes Age (y) Therapeutic Goal (%) Adults: >18 <7.0 Pediatrics: 13-18 <7.5 7-12 <8.0 0- 6 7.5-8.5 [place] [employer]. Diabetes Care 33(S1), May 2009. Estimated Average Ibdcxkv742 MG/DL GC + Chlamydia By Amplified [id number] 12:03PMBibiana Bayron Test NameResultFlagReference N.GONORRHEA,AMPLIFIEDNEG ATIVENegative SOURCE: Urine Chlamydia Trach, AmplifiedNEGATIVENegativ e Hepatitis B Surface [id number] 12:03PMBayron Mccarty Test NameResultFlagReference Hep.B Surface AgNONREACTIVESee Below Reference Range: NONREACTIVE Biotin interference may cause falsely decreased results. Patients taking a Biotin dose of up to 5 mg/day should refrain from taking Biotin for 24 hours before sample collection. Providers may contact their local laboratory for further information. Hepatitis C Antibody [id number] 12:03PMBayron Mccarty Test NameResultFlagReference Hepatitis C-AntibodyNONREACTIVESee Below Reference Range: NONREACTIVE Results from patients taking biotin supplements or receiving high-dose biotin therapy should be interpreted with caution due to possible interference with this test. Providers may contact their local laboratory for further information. HIV 1/2 ANTIGEN/ANTIBODY SCREEN WITH REFLEX TO [id number] 12:03PMBayron Mccarty Test NameResultFlagReference HIV 1/2 AG/AB SCREENNONREACTIVESee Below Reference Range: NONREACTIVE HIV Ag/Ab screen is performed using the Siemens [employer] HIV Ag/Ab Combo assay which detects the presence of HIV p24 antigen as well as antibodies to HIV-1 (Group M and O) and HIV-2. SYPHILIS SCREENING WITH [id number] 12:03Bayron Silva Test NameResultFlagReference SYPHILIS TOTAL ANTIBODYNONREACTIVESee Below SOURCE: Reference Range: NONREACTIVE No significant level of Treponema pallidum antibody detected. Repeat testing in 2 to 4 weeks may be considered if early infection or incubating syphilis infection is suspected. Signatures Electronically signed by : Bayron Mccarty MD; Jun 19 2020 10:16AM EST (Author) Normal [employer] CMV IGM ABon 04-20-2020 CMV IGM AB <30.00 Normal [facility] Comment on above: Result Comment: REFE [...] weeks. Performed By: #### C MVM2 #### [facility] [address] [place] [address] CMV IGG AND IGM ABon 020 CMV IGG AB REACTIVE Abnormal NONREACTIVE [facility] Comment on above: Performed By: #### C MV2 #### [facility] [address] [place] [address] PROGESTERONEon 04-16-2020 PROGESTERONE 10.5 ng/mL Normal [facility] Comment on above: Result Comment: REF VALUES MALE <0.3- 1.2 FOLLICULAR PHASE <0.3- 1.4 LUTEAL PHASE 3.3-25.6 MID-LUTEAL PHASE 4.4-28.0 POSTMENOPAUSAL <0.3- 0.7 FEMALES: 1ST TRIMESTER 11.2- 90.0 2ND TRIMESTER 25.6- 89.4 3RD TRIMESTER 48.4-422.5 . Patients receiving DHEA-S supplements may show false elevation of progesterone for results near 1.0 ng/mL. Contact laboratory at [phone] if alternative testing is needed. Performed By: #### P BOBBY #### [facility] [address] [place] [address] HCG,BETA-QUANTITATIVEon HCG,BETA-QUANTITATIVE <2 Normal [facility] Comment on above: Result Comment: Low- [...] HCG measurement is performed using the Shruthi [place] Access Immunoassay which detects intact HCG and free beta HCG subunit. This test is not indicated for use as a tumor marker. HCG testing is performed using a different test methodology at [facility] than other system hospitals. Direct result comparison should only be made within the same method. REF VALUES NON FEMALE <5 MALES <5 Performed By: #### H QU #### [address] [id number] J2EE APPLICATION DEVELOPER - Office Visiton J2EE APPLICATION DEVELOPER - Office Visit Chief Complaint An interactive [...] test results. Roby JEWELL. History of Present Qrplrvz4204/14/2020 9:30AM JALEESA ARRIETA , 30 year is contacted for an (audio-visual, or audio only) Telehealth visit. Today's visit was provided through telemedicine conferencing: Using Zuvvu platform. Consent: The concept of telemedicine? has [...] 2020 1:15:24 PM Vitals Vital Signs Recorded: [id number] 09:08AM Height5 ft 6 in Jpmhzw781 lb BMI Rxsexhjzrt65.81 BSA Calculated2.34 SSP62Pfk8585 Gravida1 Para0 Pain Scale0 Physical Exam This is a telehealth appointment Results/Data Anti Mullerian [id number] 12:03PMBayron Mccarty Test NameResultFlagReference Anti Mullerian Hormone6.36 ng/mL For assays employing antibodies, the possibility exists for interference by heterophile antibodies in the samples.1 1.Oswald Crews. Interferences in Immunoassays - still a threat. Clin. Chem. 2000; 46: 7520-0711. This test was developed and its performance characteristics determined by [employer]. It has not been cleared or approved by the Food and Drug Administration. Reference Range: Females 26 - 30y: 1.03 - 11.10 Median 4.20 AMH concentrations of >= 1.06 ng/mL is correlated with a better response to ovarian stimulation, produced more retrievable oocytes and higher odds of live according to Gleicher et al. Fertility and Sterility. 2010: 94:1652-7204. The current AMH test method correlates with [...] exclude an AMH-secreting ovarian tumor. Anti Mullerian Zpoftir28Nvg4934 12:03PMBayron Mccarty Test NameResultFlagReference Anti Mullerian Hormone6.36 ng/mL For assays employing antibodies, the possibility exists for interference by heterophile antibodies in the samples.1 1.Oswald Brunner Interferences in Immunoassays - still a threat. Clin. Chem. 2000; 46: 0321-3126. This test was developed and its performance characteristics determined by [employer]. It has not been cleared or approved by the Food and Drug Administration. Reference Range: Females 26 - 30y: 1.03 - 11.10 Median 4.20 AMH concentrations of >= 1.06 ng/mL is correlated with a better response to ovarian stimulation, produced more retrievable oocytes and higher odds of live according to Gleicher et al. Fertility and Sterility. 2010: 94:2511-0770. The current AMH test method correlates with [...] exclude an AMH-secreting ovarian tumor. Rubella IgG Pkatxtgh47Yry3893 12:03PMBayron Mccarty Test NameResultFlagReference Rubella IgG AntibodyPOSITIVE [...] TSH WITH REFLEX TO FREE T4 IF [id number] 12:03PMBayron Mccarty Test NameResultFlagReference Thyroid Stimulating Hormone, Serum2.17 mIU/LSee Below Reference Range: 0.44 - 3.98 TSH testing is performed using different testing methodology at [facility] than at other [facility]. Direct result comparisons should only be made within the same method. Varicella Zoster IgG Cvlhqjyr73Xqw5366 12:03PMBayron cMcarty Test NameResultFlagReference Varicella Zoster IgG AntibodyNegativeNEGATIVE SOURCE: [...] altered results in serological assays. Vitamin D 25-Hoypxwi20Kum8125 12:03PMBayron Mccarty Test NameResultFlagReference Vitamin D 25-Hydroxy, Level17 ng/mLA . DEFICIENCY: < 20 NG/ML INSUFFICIENCY: 20-29 NG/ML SUFFICIENCY: 30-100 NG/ML THIS ASSAY ACCURATELY QUANTIFIES THE SUM OF VITAMIN D3, 25-HYDROXY AND VIT D2,25-HYDROXY. { 17-Hydroxyprogesterone, Eoslc04Cpn7409 12:03PMBayron Mccarty Test NameResultFlagReference 17-Hydroxyprogesterone, Serum33 ng/dL [...] Endocrinol Metab. 1991;73:674-686; J Clin Endocrinol Metab. 1989;69;1815-6105; J Clin Endocrinol Metab. 1994;78:226-270. Pediatr Res 1988;23:525-529. MedLinePlus (accessed 10/25/13). This test was developed and its analytical performance characteristics have been [facility] [place] It has not been cleared or approved by the U.S. Food and Drug Administration. This assay has been validated pursuant to the CLIA regulations and is used for clinical purposes. DHEA Sulfate, Gujjj71Tzx4548 12:03PMBayron Mccarty Test NameResultFlagReference DHEA Sulfate, Yzwtv657 ug/dL65 - 395 MATURITY-BASED REFERENCE RANGES: PUBERTAL [...] laboratory for further information. Testosterone Free + Epvai89Jlq1641 12:03PMBayron Mccarty Test NameResultFlagReference Testosterone, Total63 ng/dLH2-45 For additional information, please refer to http://education.[employer]/faq/ TotalTestosteroneLCMSMSF AQ165 (This link is being provided for informational/ educational purposes only.) This test was developed and its analytical performance characteristics have been determined by [facility] [place], [place]. It has not been cleared or approved by the U.S. Food and Drug Administration. This assay has been validated pursuant to the CLIA regulations and is used for clinical purposes. Testosterone, Free Serum8.8 pg/mLH0.1-6.4 This test was developed and its analytical performance characteristics have been determined by [facility] [place], [place]. It has not been cleared or approved by the U.S. Food and Drug Administration. This assay has been validated pursuant to the CLIA regulations and is used for clinical purposes. Hemoglobin Q6L53Ukp1288 12:03PMBayron Mccarty Test NameResultFlagReference Hemoglobin A1C, Level5.5 % Diagnosis of Diabetes-Adults Non-Diabetic: < or = 5.6% Increased risk for developing diabetes: 5.7-6.4% Diagnostic of diabetes: > or = 6.5% . Monitoring of Diabetes Age (y) Therapeutic Goal (%) Adults: >18 <7.0 Pediatrics: 13-18 <7.5 7-12 <8.0 0- 6 7.5-8.5 [employer]. Diabetes Care 33(S1), May 2009. Estimated Average Kexaysm675 MG/DL GC + Chlamydia By Amplified Aqalhgeqo52Lyq0794 12:03Bayron Silva Test NameResultFlagReference N.GONORRHEA,AMPLIFIEDNEG ATIVENegative SOURCE: Urine Chlamydia Trach, AmplifiedNEGATIVENegativ e Hepatitis B Surface Qarzmtm58Kje6707 12:03PMBayron Mccarty Test NameResultFlagReference Hep.B Surface AgNONREACTIVESee Below Reference Range: NONREACTIVE Biotin interference may cause falsely decreased results. Patients taking a Biotin dose of up to 5 mg/day should refrain from taking Biotin for 24 hours before sample collection. Providers may contact their local laboratory for further information. Hepatitis C Antibody Fygn36Okd5631 12:03PMBayron Mccarty Test NameResultFlagReference Hepatitis C-AntibodyNONREACTIVESee Below Reference Range: NONREACTIVE Results from patients taking biotin supplements or receiving high-dose biotin therapy should be interpreted with caution due to possible interference with this test. Providers may contact their local laboratory for further information. HIV 1/2 ANTIGEN/ANTIBODY SCREEN WITH REFLEX TO [id number] 12:03PMYuniorBayron polanco Test NameResultFlagReference HIV 1/2 AG/AB SCREENNONREACTIVESee Below Reference Range: NONREACTIVE HIV Ag/Ab screen is performed using the [employer] HIV Ag/Ab Combo assay which detects the presence of HIV p24 antigen as well as antibodies to HIV-1 (Group M and O) and HIV-2. SYPHILIS SCREENING WITH [id number] 12:03PMBibiana Bayron Test NameResultFlagReference SYPHILIS TOTAL ANTIBODYNONREACTIVESee Below SOURCE: Reference Range: NONREACTIVE No significant level of Treponema pallidum antibody detected. Repeat testing in 2 to 4 weeks may be considered if early infection or incubating syphilis infection is suspected. Diagnoses/Problems Irregular menses (626.4) (N92.6) Morbid obesity (278.01) (E66.01) Orders HCG, Beta Quantitative; Status:Active; Requested for:87Hve6261; Perform:Lab Services - Lab To Draw (Blood Test); Due:13Jul2020;Ordered; For:Irregular menses; Ordered By:Bayron Mccarty; Progesterone, Serum; Status:Active; Requested for:60Zqb4056; Perform:Lab Services - Lab To Draw (Blood [...] MD [facility] [phone] [place] [phone] [place] Appointment Duration:. 25 minutes; greater than [...] MD [facility] [phone] [place] [phone] [place] 1 Amended By: Bayron Mccarty; Apr 14 2020 4:50 PM ESTSignatures Electronically signed by : Bayron Mccarty MD; Apr 14 2020 4:51PM EST (Author) Normal [facility] J2EE APPLICATION DEVELOPER - Procedure Visiton 1 05-28-2019 J2EE APPLICATION DEVELOPER - Procedure Visit Chief Complaint pt presents [...] 1 CAPSULE EVERY 12 HOURS DAILY; Therapy: 07Hvl6035 to (Evaluate:56Kmy2823) Requested for: 94Img7481; Last Rx:[id number] Ordered Rx By: Bayron Mccarty; Dispense: 5 Days ; #:10 Capsule; Refill: 0;For: Fertility testing; KEVIN = N; Verified Transmission to [place] [address]; Msg to Pharmacy: start medication the night before her procedure; Last Updated By: Cindi Lizarraga; 01/24/2020 12:08:27 PM Vitamin D 25 MCG (1000 UT) Oral Tablet; Therapy: 46Twm5097 to Recorded Dispense: 0 Days ; #: [...] Signatures Electronically signed by : Kelle Vaz APRN-ORGANIZATIONAL PSYCHOLOGIST; Mar 28 2020 4:10PM EST (Author) Normal [facility] J2EE APPLICATION DEVELOPER - Office Visiton 11-0 J2EE APPLICATION DEVELOPER - Office Visit Chief Complaint The patient [...] is considering single parent procreation. Her usual Chip Bin Operator with whom she would plan to follow with for care in a future is Dr. Ng in [place]. Active Problems Female infertility (628.9) (N97.9) Fertility [...] 1 CAPSULE EVERY 12 HOURS DAILY; Therapy: 72Kpo6618 to (Evaluate:10Trb4587) Requested for: 12Lls7220; Last Rx:[id number] Ordered Rx By: Bayron Mccarty; Dispense: 5 Days ; #:10 Capsule; Refill: 0; For: Fertility testing; KEVIN = N; Verified Transmission to [place] [address]; Msg to Pharmacy: start medication the night before her procedure; Last Updated By: ElhamAdvisity; 01/24/2020 12:08:27 PM Vitamin D 25 MCG (1000 UT) Oral Tablet; Therapy: 05Era2054 to Recorded Dispense: 0 Days ; #: Sufficient Tablet; Refill: 0; KEVIN = N; Record; Last Updated By: Breezy Jasso; 2020 1:15:24 PM Vitals Vital Signs Recorded: 13Mar2020 01:08PM Heart Rate96 Luoenwjp401 Qmcujsowg63 Height5 ft 6 in Hdfyda738 lb BMI Iutbbmlris62.91 BSA Calculated2.39 Tobacco Useb) No Fall Screeninga) No falls within the last year BNA50Epe2943 Gravida1 Para0 Pain Scale0 Diagnoses/Problems Morbid obesity [...] consultation of which greater than 50% was dqgx-bt-pxgo counseling. Weight loss prior to conception is [...] MD; Jun 12 2020 4:50PM EST Normal [facility] ANTI MULLERIAN HORMONEon ANTI MULLERIAN HORMONE 6.36 ng/mL Normal [facility] Comment on above: Result Comment: For assays employing antibodies, the possibility exists for interference by heterophile antibodies in the samples.1 1.Oswald Crews. Interferences in Immunoassays - still a threat. Clin. Chem. 2000; 46: 8088-8425. This test was developed and its performance characteristics determined by [employer]. It has not been cleared or approved by the Food and Drug Administration. Reference Range: Females 26 - 30y: 1.03 - 11.10 Median 4.20 AMH concentrations of >= 1.06 ng/mL is correlated with a better response to ovarian stimulation, produced more retrievable oocytes and higher odds of live according to Carey et al. Fertility and Sterility. 2010: 94:5316-1590. The current AMH test method correlates with [...] ovarian tumor. Performed By: #### A #### [employer] [address] [place] [address] [id number] 17-HYDROXYPROGESTERONEon 17-HYDROXYPROGESTERON E 33 ng/dL Normal [facility] Comment on above: Result Comment: Unable to [...] Endocrinol Metab. 1991;73:674-686; J Clin Endocrinol Metab. 1989;69;5317-8830; J Clin Endocrinol Metab. 1994;78:226-270. Pediatr Res 1988;23:525-529. MedLinePlus (accessed 10/25/13). This test was developed and its analytical performance characteristics have been determined by [facility] [place], [place]. It has not been cleared or approved by the U.S. Food and Drug Administration. This assay has been validated pursuant to the CLIA regulations and is used for clinical purposes. Performed By: #### 1 [facility] #### [facility] [address] [place] [address] TESTOST,FREE AND TOTALon TESTOSTERONE TOT.LC/MS/MS 63 ng/dL High 2-45 [facility] Comment on above: Result Comment: For additional information, please refer to http://education.[employer]/faq/ VxjwgIbxqaojseqluRCIFIFUBN604 (This link is being provided for informational/ educational purposes only.) This test was developed and its analytical performance characteristics have been determined by [facility] [place], [place]. It has not been cleared or approved by the U.S. Food and Drug Administration. This assay has been validated pursuant to the CLIA regulations and is used for clinical purposes. Performed By: #### G [facility] #### [facility] [address] [place] [address] TESTOSTERONE,FREE 8.8 pg/mL High 0.1-6.4 [facility] Comment on above: Result Comment: This test was developed and its analytical performance characteristics have been determined by [facility] [place], [place]. It has not been cleared or approved by the U.S. Food and Drug Administration. This assay has been validated pursuant to the CLIA regulations and is used for clinical purposes. Performed By: #### G [facility] #### [facility] [address] [place] [address] DHEA SULFATEon 01-25-2020 DHEA SULFATE 214 ug/dL Normal 65 - 395 [facility] Comment on above: Result Comment: MATU RITY-BASED [...] information. Performed By: #### G [facility] #### [facility] [address] [place] [address] GC + CHLAMYDIA BY AMPLIFIED DETECTIONon 01-25-2020 CHLAMYDIA TRACH.,AMPLIFIED Negative Normal Negative [facility] Comment on above: Performed By: #### G CCHA #### [facility] [address] [place] [address] N.GONORRHEA,AMPLIFIED Negative Normal Negative [facility] Comment on above: Performed By: #### G [facility] #### [facility] [address] [place] [address] HEPATITIS B SURFACE AGon HEP.B SURFACE AG NONREACTIVE Normal NONREACTIVE [facility] Comment on above: Result Comment: Biot in interference may cause falsely decreased results. Patients taking a Biotin dose of up to 5 mg/day should refrain from taking Biotin for 24 hours before sample collection. Providers may contact their local laboratory for further information. Performed By: #### [facility] #### [facility] [address] [place], [place] HEPATITIS C ABon 01-25-2020 HEPATITIS C AB NONREACTIVE Normal NONREACTIVE [facility] Comment on above: Result Comment: Resu lts from patients taking biotin supplements or receiving high-dose biotin therapy should be interpreted with caution due to possible interference with this test. Providers may contact their local laboratory for further information. Performed By: #### H [facility] #### [facility] [address] [place], [place] HIV ANTIGEN/ANTIBODY SCREENo n 01-25-2020 HIV AG/AB SCREEN NONREACTIVE Normal NONREACTIVE [facility] Comment on above: Result Comment: HIV Ag/Ab screen is performed using the [employer]ens [employer] HIV Ag/Ab Combo assay which detects the presence of HIV p24 antigen as well as antibodies to HIV-1 (Group M and O) and HIV-2. Performed By: #### G [facility] #### [facility] [address] [place] [address] RUBELLA IGG ABon 01-25-2020 RUBELLA IGG AB Positive Normal [facility] Comment on above: Result [...] assays. Performed By: #### R UBIG #### [facility] [address] [place] [id number] SYPHILIS SCREENING WITH REFL EXon 01-25-2020 SYPHILIS TOTAL AB NONREACTIVE Normal NONREACTIVE [facility] Comment on above: Result Comment: No s ignificant level of Treponema pallidum antibody detected. Repeat testing in 2 to 4 weeks may be considered if early infection or incubating syphilis infection is suspected. Performed By: #### S YPHR #### [facility] [address] [place] [address] TSH WITH REFLEX TO FREE T4 I F ABNORMALon 01-25-2020 TSH Qn 2.17 m[IU]/L Normal 0.44 - 3.98 [facility] Comment on above: Result Comment: TSH testing is performed using different testing methodology at [facility] than at other [facility]. Direct result comparisons should only be made within the same method. Performed By: #### G CCHA #### [facility] [address] [place] [id number] VARICELLA ZOSTER IGG ABon VARICELLA ZOSTER IGG AB Negative Normal NEGATIVE [facility] Comment on above: Result Comment: INTE RPRETATIVE [...] assays. Performed By: #### V ARZG #### [facility] [address] [place] [address] VITAMIN D, 25-HYDROXYon 01-10 VITAMIN D, 25-HYDROXY 17 ng/mL Abnormal [facility] Comment on above: Result Comment: . DEFICIENCY: < 20 NG/ML INSUFFICIENCY: 20-29 NG/ML SUFFICIENCY: 30-100 NG/ML THIS ASSAY ACCURATELY QUANTIFIES THE SUM OF VITAMIN D3, 25-HYDROXY AND VIT D2,25-HYDROXY. { Performed By: #### G CCHA #### [facility] [address] [place] [address] GC + CHLAMYDIA BY AMPLIFIED DETECTIONon 01-24-2020 Lab Specimen Source Urine Normal [facility] Comment on above: Performed By: #### G CCHA #### [facility] [address] [place] [address] HEMOGLOBIN A1Con 01-24-2020 HbA1c (Bld) [Mass fraction] 5.5 % Normal [facility] Comment on above: Result Comment: Diag nosis of Diabetes-Adults Non-Diabetic: < or = 5.6% Increased risk for developing diabetes: 5.7-6.4% Diagnostic of diabetes: > or = 6.5% . Monitoring of Diabetes Age (y) Therapeutic Goal (%) Adults: >18 <7.0 Pediatrics: 13-18 <7.5 7-12 <8.0 0- 6 7.5-8.5 [employer]. Diabetes Care 33(S1), May 2009. Performed By: #### H BA1E #### [facility] [address] [place] [address] HbA1c (Bld) [Mass fraction] 111 MG/DL Normal [facility] Comment on above: Performed By: #### H BA1E #### [facility] [address] [place] [address] J2EE APPLICATION DEVELOPER - Office Visiton 01-10 J2EE APPLICATION DEVELOPER - Office Visit Chief Complaint 29 year [...] was treated with laparoscopic left salpingectomy in [facility]. 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 HISTORY: STDs: Yes, remote history of gonorrhea [...] PM Vitals Vital Signs Recorded: 24Jan2020 11:13AM Jgvmqlxvltm95.7 F Heart Mkfa721 Jovuugmf592 Kcioyfaqq47 Height5 ft 6 in Hzzzqt212 lb BMI Xkuloyrbyf01.13 BSA Calculated2.35 Tobacco Useb) No Fall Screeninga) No falls within the last year [id number] Gravida1 Para0 Pain Scale0 Diagnoses/Problems Female infertility (628.9) (N97.9) Fertility testing (V26.21) (Z31.41) Morbid obesity (278.01) (E66.01) Irregular menses (626.4) (N92.6) Screening for STD (sexually transmitted disease) (V74.5) (Z11.3) *Orders Anti Mullerian Hormone; Status:Active; Requested for:24Jan2020; Perform:Lab Services - Lab To Draw (Non-Blood Test); Due:24Nva6681;Ordered; For:Female infertility, Fertility testing, Irregular menses, Morbid obesity; Ordered By:Bayron Mccarty; Start: Doxycycline Monohydrate 100 MG Oral Capsule; TAKE 1 CAPSULE EVERY 12 HOURS DAILY Rx By: Bayron Mccarty; Dispense: 5 Days ; #:10 Capsule; Refill: 0; For: Fertility testing; KEVIN = N; Verified Transmission to [place] [address]; Msg to Pharmacy: start medication the night before her procedure; Last Updated By: Cindi Lizarraga; 01/24/2020 12:08:27 PM Maternal Medicine Referral Evaluation and Treatment Evaluate AND Treat Status: Hold For - Scheduling Requested for: 81Lvu7740 Ordered; For: Morbid obesity; Ordered By: Bayron Mccarty Performed: Due: 75Wqf4690 17-Hydroxyprogesterone, Serum; Status:Active; Requested for:73Rye8116; Perform:Lab Services - Lab To Draw (Blood Test); Due:93Znt3018;Ordered; For:Screening for STD (sexually transmitted disease); Ordered By:Bayron Mccarty; DHEA Sulfate, Serum; Status:Active; Requested for:24Jan2020; Perform:Lab Services - Lab To Draw (Blood Test); Due:41Idc9663;Ordered; For:Screening for STD (sexually transmitted disease); Ordered By:Bayron Mccarty; Hemoglobin A1C; Status:Active; Requested for:24Jan2020; Perform:Lab Services - Lab To Draw (Blood Test); Due:52Gjb6079;Ordered; For:Screening for STD (sexually transmitted disease); Ordered By:Bayron Mccarty; Rubella IgG Antibody; Status:Active; Requested for:24Jan2020; Perform:Lab Services - Lab To Draw (Blood Test); Due:03Vwm7328;Ordered; For:Screening for STD (sexually transmitted disease); Ordered By:Bayron Mccarty; Testosterone Free + Total; Status:Active; Requested for:24Jan2020; Perform:Lab Services - Lab To Draw (Blood Test); Due:49Oze6461;Ordered; For:Screening for STD (sexually transmitted disease); Ordered By:Bayron Mccarty; TSH WITH REFLEX TO FREE T4 IF ABNORMAL; Status:Active; Requested for:24Jan2020; Perform:Lab Services - Lab To Draw (Blood Test); Due:82Vor3316;Ordered; For:Screening for STD (sexually transmitted disease); Ordered By:Bayron Mccarty; Ultrasound Pelvis Transvaginal; Status:Hold For - Scheduling; Requested for:24Jan2020; Perform:[facility]; Order Comments:will call with menses to schedule; Due:23Apr2020;Ordered; For:Screening for STD (sexually transmitted disease); Ordered By:Bayron Mccarty; Radiologist to Determine Optimal Study : Y What are the patient's signs and symptoms? : fert testing Varicella Zoster IgG Antibody; Status:Active; Requested for:24Jan2020; Perform:Lab Services - Lab To Draw (Blood Test); Due:19Rrs0091;Ordered; For:Screening for STD (sexually transmitted disease); Ordered By:Bayron Mccarty; Vitamin D 25-Hydroxy; Status:Active; Requested for:75Far8961; Perform:Lab Services - Lab To Draw (Blood Test); Due:44Kyp3871;Ordered; For:Screening for STD (sexually transmitted disease); Ordered By:Bayron Mccarty; Xray Hysterosalpingogram; Status:Hold For - Scheduling; Requested for:61Lxj2891; Perform:[facility]; Order Comments:will call with menses to schedule. schedule between CD5-12. start doxycycline night prior to procedure; Due:14Tnn3893;Ordered; For:Screening for STD (sexually transmitted disease); Ordered By:Bayron Mccarty; Radiologist to Determine Optimal Study : Y What are the patient's signs and symptoms? : fert testing Tobacco Use Screening; Status:Complete; Done: 71Bwk1022 Perform:Not Applicable;Ordered; For:SocHx: Never a smoker; Ordered [...] sent to her home pharmacy ([facility] in [place]) [ ] Day 3 FSH, LH, E2 [x] AMH [x] TSH [x] Prolactin [x] Testosterone, DHEAS [x] HgA1C [x] STD screening [x ] Preconceptual screening including Rubella,Varicella, Blood type [ ] Genetic Screen with [employer] - will consider [ ] Take vitamins [x] Return to see NEWS PHOTOGRAPHER after workup complete to discuss management plan [...] REFL EXon 01-24-2020 Lab Specimen Source Normal [facility] Comment on above: Performed By: #### S YPHR #### [facility] [address] [place] [address] Performed By: #### Jovany ARZG #### [facility] [address] [place] [address] Performed By: #### R UBIG #### [facility] [address] [place] [address] Vital Signs Date Time Vital Sign Value Performing Clinician Facility 05-26-2024 14:09-0500 Body mass index (BMI) [Ratio] 49.57 kg/m2 Tacho Scottzio DO Work Phone: [facility] 05-26-2024 14:09-0500 Body weight 139.31 kg Tacho Shon DO Work Phone: [facility] 05-26-2024 14:09-0500 Diastolic blood pressure 82 mm[Hg] Tacho Shon DO Work Phone: [facility] 05-26-2024 14:09-0500 Systolic blood pressure 126 mm[Hg] Tacho Shon DO Work Phone: [facility] 05-17-2024 15:36-0500 Body mass index (BMI) [Ratio] 49.41 kg/m2 Tacho Shon DO Work Phone: [facility] 05-17-2024 15:36-0500 Body weight 138.85 kg Tacho Shon DO Work Phone: [facility] 05-17-2024 15:36-0500 Diastolic blood pressure 80 mm[Hg] Tacho Shon DO Work Phone: [facility] 05-17-2024 15:36-0500 Systolic blood pressure 118 mm[Hg] Tacho Shon DO Work Phone: [facility] 05-03-2024 15:11-0500 Body mass index (BMI) [Ratio] 49.09 kg/m2 Mena CARRILLO Work Phone: [facility] 05-03-2024 15:11-0500 Body weight 137.95 kg Mena CARRILLO Work Phone: [facility] 05-03-2024 15:11-0500 Diastolic blood pressure 70 mm[Hg] Mena CARRILLO Work Phone: [facility] 05-03-2024 15:11-0500 Systolic blood pressure 120 mm[Hg] Mena CARRILLO Work Phone: [facility] 04-22-2024 09:51-0500 Body mass index (BMI) [Ratio] 49.45 kg/m2 Tacho Shon DO Work Phone: [facility] 04-22-2024 09:51-0500 Body weight 138.98 kg Tacho Shon DO Work Phone: [facility] 04-22-2024 09:51-0500 Diastolic blood pressure 80 mm[Hg] Tacho Shon DO Work Phone: [facility] 04-22-2024 09:51-0500 Systolic blood pressure 130 mm[Hg] Tacho Shon DO Work Phone: [facility] 04-06-2024 14:10-0500 Body mass index (BMI) [Ratio] 48.58 kg/m2 Mena Marissa CARRILLO Work Phone: [facility] 04-06-2024 14:10-0500 Body weight 136.53 kg Mena Marissa PA Work Phone: [facility] 04-06-2024 14:10-0500 Diastolic blood pressure 80 mm[Hg] Mena Marissa PA Work Phone: [facility] 04-06-2024 14:10-0500 Systolic blood pressure 128 mm[Hg] Mena Denver PA Work Phone: [facility] 03-22-2024 14:14-0500 Body mass index (BMI) [Ratio] 48.92 kg/m2 Tacho Shon DO Work Phone: [facility] 03-22-2024 14:14-0500 Body weight 137.49 kg Tacho Shon DO Work Phone: [facility] 03-22-2024 14:14-0500 Diastolic blood pressure 84 mm[Hg] Tacho Shon DO Work Phone: [facility] 03-22-2024 14:14-0500 Systolic blood pressure 126 mm[Hg] Tacho Shon DO Work Phone: [facility] 03-05-2024 23:11-0400 Diastolic blood pressure 78 mm[Hg] [facility] Work Phone: [facility] 03-05-2024 23:11-0400 Heart rate 90 /min [facility] Work Phone: [facility] 03-05-2024 23:11-0400 Respiratory rate 18 /min Services [facility] Work Phone: [facility] 03-05-2024 23:11-0400 SaO2% (BldA) [Mass fraction] 96 % Services [facility] Work Phone: [facility] 03-05-2024 23:11-0400 Systolic blood pressure 136 mm[Hg] Services [facility] Work Phone: [facility] 03-05-2024 19:59-0400 Body temperature 98.1 [degF] Services [facility] Work Phone: [facility] 03-05-2024 19:58-0400 Body height 167.64 cm Services [facility] Work Phone: [facility] 03-05-2024 19:58-0400 Body weight 136.55 kg Services [facility] Work Phone: [facility] 02-26-2024 19:50-0400 Body height 167.64 cm Services [facility] Work Phone: [facility] 02-26-2024 19:50-0400 Body temperature 97.8 [degF] Services [facility] Work Phone: [facility] 02-26-2024 19:50-0400 Body weight 136.98 kg Services [facility] Work Phone: [facility] 02-26-2024 19:50-0400 Diastolic blood pressure 91 mm[Hg] Services [facility] Work Phone: [facility] 02-26-2024 19:50-0400 Heart rate 103 /min Services [facility] Work Phone: [facility] 02-26-2024 19:50-0400 Respiratory rate 16 /min Services [facility] Work Phone: [facility] 02-26-2024 19:50-0400 SaO2% (BldA) [Mass fraction] 96 % Services [employer] Work Phone: [facility] 02-26-2024 19:50-0400 Systolic blood pressure 144 mm[Hg] Services [employer] Work Phone: [facility] 02-23-2024 14:01-0400 Body mass index (BMI) [Ratio] 48.76 kg/m2 Mena CARRILLO Work Phone: [facility] 02-23-2024 14:01-0400 Body weight 137.04 kg Mena Marissa PA Work Phone: [facility] 02-23-2024 14:01-0400 Diastolic blood pressure 82 mm[Hg] Mena Marissa PA Work Phone: [facility] 02-23-2024 14:01-0400 Systolic blood pressure 128 mm[Hg] Mena Garciaey PA Work Phone: [facility] 01-20-2024 13:58-0400 Body mass index (BMI) [Ratio] 48.1 kg/m2 Tacho Shon DO Work Phone: [facility] 01-20-2024 13:58-0400 Body weight 135.17 kg Tacho Shon DO Work Phone: [facility] 01-20-2024 13:58-0400 Diastolic blood pressure 74 mm[Hg] Tacho Shon DO Work Phone: [facility] 01-20-2024 13:58-0400 Systolic blood pressure 122 mm[Hg] Tacho Shon DO Work Phone: [facility] 10-06-2023 17:42-0400 Body height 167.64 cm Services [employer] Work Phone: [facility] 10-06-2023 17:42-0400 Body temperature 98.3 [degF] Services [employer] Work Phone: [facility] 10-06-2023 17:42-0400 Body weight 134 kg Services [employer] Work Phone: [facility] 10-06-2023 17:42-0400 Diastolic blood pressure 94 mm[Hg] Services [facility] Work Phone: [facility] 10-06-2023 17:42-0400 Heart rate 98 /min Services [facility] Work Phone: [facility] 10-06-2023 17:42-0400 Respiratory rate 18 /min Services [facility] Work Phone: [facility] 10-06-2023 17:42-0400 SaO2% (BldA) [Mass fraction] 100 % Services [facility] Work Phone: [facility] 10-06-2023 17:42-0400 Systolic blood pressure 142 mm[Hg] Services [facility] Work Phone: [facility] 09-17-2023 14:22-0400 Body height 167.6 cm Anna Ortiz [facility] 09-17-2023 14:22-0400 Body mass index (BMI) [Ratio] 47.61 kg/m2 Anna Ortiz [facility] 09-17-2023 14:22-0400 Body weight 133.81 kg Anna Ortiz [facility] 08-20-2023 13:05-0400 Body height 167.6 cm Tonya Senior APRN.ORGANIZATIONAL PSYCHOLOGIST Work Phone: [facility] 08-20-2023 13:05-0400 Body weight 133.81 kg Tonya Senior APRN.ORGANIZATIONAL PSYCHOLOGIST Work Phone: [facility] 08-07-2023 15:23-0400 Body height 168.91 cm Services [facility] Work Phone: [facility] 08-07-2023 15:23-0400 Body mass index (BMI) [Ratio] 46.9 kg/m2 Services [facility] Work Phone: [facility] 08-07-2023 15:23-0400 Body weight 133.89 kg Services [facility] Work Phone: [facility] 08-07-2023 15:23-0400 Diastolic blood pressure 83 mm[Hg] Services [employer] Work Phone: [facility] 08-07-2023 15:23-0400 Heart rate 101 /min Services [employer] Work Phone: [facility] 08-07-2023 15:23-0400 Respiratory rate 18 /min Services [employer] Work Phone: [facility] 08-07-2023 15:23-0400 SaO2% (BldA) [Mass fraction] 98 % Services [employer] Phone: [facility] 08-07-2023 15:23-0400 Systolic blood pressure 120 mm[Hg] Services [employer] Phone: [facility] 06-13-2023 11:00-0500 Body height 168.28 cm [employer] Other [facility] 06-13-2023 11:00-0500 Body mass index (BMI) [Ratio] 48.53 kg/m2 [employer] Other [employer] Other 06-13-2023 11:00-0500 Body weight 137.44 kg [employer] Other [employer] Other 06-13-2023 11:00-0500 Body weight 137.43 kg Services [employer] Phone: [facility] 06-13-2023 11:00-0500 Diastolic blood pressure 82 mm[Hg] [employer] Other [facility] 06-13-2023 11:00-0500 Respiratory rate 18 /min [employer] Other [employer] Other 06-13-2023 11:00-0500 SaO2% (BldA) [Mass fraction] 97 % [employer] Other [employer] Other 06-13-2023 11:00-0500 Systolic blood pressure 120 mm[Hg] Nicholas Michaels Other [facility] 01-08-2023 10:45-0400 Body height 168.28 cm Nicholas Michaels Other [employer] Other 01-08-2023 10:45-0400 Body mass index (BMI) [Ratio] 52.89 kg/m2 Nicholas Michaels Other [employer] Other 01-08-2023 10:45-0400 Body weight 149.78 kg Nicholas Michaels Other [employer] Other 01-08-2023 10:45-0400 Diastolic blood pressure 81 mm[Hg] Nicholas Michaels Other [employer] Other 01-08-2023 10:45-0400 Respiratory rate 18 /min Nicholas Michaels Other [employer] Other 01-08-2023 10:45-0400 SaO2% (BldA) [Mass fraction] 97 % Nicholas Michaels Other [employer] Other 01-08-2023 10:45-0400 Systolic blood pressure 122 mm[Hg] Nicholas Michaels Other [employer] Other 06-18-2022 16:57-0500 Body height 167.64 cm Services [employer] Work Phone: [facility] 06-18-2022 16:57-0500 Body weight 157 kg Services [employer] Work Phone: [facility] 06-18-2022 16:56-0500 Body temperature 98.3 [degF] Services [facility] [employer] Phone: [facility] 06-18-2022 16:56-0500 Diastolic blood pressure 67 mm[Hg] Services [facility] Work Phone: [facility] 06-18-2022 16:56-0500 Heart rate 95 /min Services [facility] Work Phone: [facility] 06-18-2022 16:56-0500 Respiratory rate 20 /min [facility] Work Phone: [facility] 06-18-2022 16:56-0500 SaO2% (BldA) [Mass fraction] 97 % Services [facility] Work Phone: [facility] 06-18-2022 16:56-0500 Systolic blood pressure 158 mm[Hg] Services [facility] Work Phone: [facility] 12-02-2021 20:26-0400 Body height 167.64 cm Services [facility] Work Phone: [facility] 12-02-2021 20:26-0400 Body temperature 98.2 [degF] Services [facility] Work Phone: [facility] 12-02-2021 20:26-0400 Body weight 144.24 kg Services [facility] Work Phone: [facility] 12-02-2021 20:26-0400 Diastolic blood pressure 89 mm[Hg] Services [facility] Work Phone: [facility] 12-02-2021 20:26-0400 Heart rate 104 /min [facility] Work Phone: [facility] 12-02-2021 20:26-0400 Respiratory rate 20 /min [facility] Work Phone: [facility] 12-02-2021 20:26-0400 SaO2% (BldA) [Mass fraction] 96 % Services [facility] Work Phone: [facility] 12-02-2021 20:26-0400 Systolic blood pressure 156 mm[Hg] Services [facility] Work Phone: [facility] 06-19-2020 11:10-0500 BMI (Body Mass Index) 46.65 kg/m2 Bayron Mccarty OY-DBCWC-Ihyreg 310 [facility] Work Phone: 06-19-2020 11:10-0500 Body weight 131.09 kg Bayron Mccarty SX-YPGUJ-Hnavzl 310 IVF Work Phone: 06-19-2020 11:10-0500 BSA (Body Surface Area) 2.34 m2 Bayron Mccarty EK-LWRZL-Zufnqd 310 IVF Work Phone: 06-19-2020 11:10-0500 Height 167.64 cm Bayron Mccarty GI-QXNPW-Ipfdes 310 IVF Work Phone: 06-19-2020 11:10-0500 1 1 Bayron Mccarty BM-XIPWK-Myftez 310 IVF Work Phone: Comment on above: 06-19-2020 11:10-0500 0 1 Bayron Mccarty MQ-RFTQX-Fxwmuf 310 IVF Work Phone: Comment on above: [...] Departed Referred Services [facility] Work Phone: [facility] Start: 05-17-2024 End: 05-17-2024 Office outpatient visit 15 minutes Tacho Shon DO Work Phone: [facility] Comment on above: 37 weeks gestation o f ; Third trimester Start: 05-17-2024 End: 05-17-2024 ambulatory Services [facility] Work Phone: [facility] Work Phone: Start: 05-17-2024 End: 05-17-2024 Bamboo flowsheet Tacho Shon DO Work Phone: [facility] Start: 05-17-2024 End: 05-22-2024 Bamboo flowsheet Tacho Shon DO Work Phone: [facility] Start: 05-17-2024 End: 05-22-2024 Clinisync Result Encounter Tacho Shon DO Work Phone: [facility] Unsolicited Start: 05-03-2024 End: 05-03-2024 Office outpatient visit 15 minutes Mena CARRILLO Work Phone: [facility] Comment on above: 35 weeks gestation o f ; Third trimester Start: 05-03-2024 End: 05-03-2024 ambulatory MENA ANN Not Available Start: 05-03-2024 End: 05-03-2024 Bamboo flowsheet Mena CARRILLO Work Phone: [facility] Start: 05-03-2024 End: 05-03-2024 Bamboo flowsheet Mena CARRILLO Work Phone: [facility] Start: 05-03-2024 End: 05-03-2024 Clinisync Result Encounter Tacho Shon DO Work Phone: [facility] External Department Unsolicited Start: 04-27-2024 End: 04-27-2024 ambulatory [facility] Start: 04-22-2024 End: 04-22-2024 Bamboo flowsheet Tacho Shon DO Work Phone: [facility] Start: 04-22-2024 End: 04-22-2024 Bamboo flowsheet Tacho Shon DO Work Phone: [facility] Start: 04-22-2024 End: 04-22-2024 Office outpatient visit 15 minutes Tacho Shon DO Work Phone: [facility] Comment on above: 33 weeks gestation o f ; Third trimester ; H/O premature delivery; Thyroid disease (CMS/HCC); H/O pre-eclampsia in prior , currently Start: 04-22-2024 End: 04-22-2024 ambulatory TACHO SHON Not Available Start: 04-06-2024 End: 04-06-2024 Bamboo flowsheet Mena CARRILLO Work Phone: [facility] Start: 04-06-2024 End: 04-06-2024 Bamboo flowsheet Mena CARRILLO Work Phone: [facility] Start: 04-06-2024 End: 04-06-2024 Office outpatient visit 15 minutes Mena CARRILLO Work Phone: [facility] Comment on above: Third trimester preg rosette; 31 weeks gestation of ; H/O premature delivery Start: 04-06-2024 End: 04-06-2024 ambulatory MENA ANN Not Available Start: 03-30-2024 End: 03-30-2024 ambulatory TACHO R SHON [facility] Start: 03-22-2024 End: 03-22-2024 Bamboo flowsheet Tacho Shon DO Work Phone: [facility] Start: 03-22-2024 End: 03-22-2024 Bamboo flowsheet Tacho Shon DO Work Phone: [facility] Start: 03-22-2024 End: 03-22-2024 Office outpatient visit 15 minutes Tacho Shon DO Work Phone: [facility] Comment on above: Third trimester preg rosette; 29 weeks gestation of Start: 03-22-2024 End: 03-22-2024 ambulatory TACHO SHON Not Available Start: 03-19-2024 End: 03-19-2024 Clinisync Result Encounter Mena CARRILLO Work Phone: [facility] External Department Unsolicited Start: 03-19-2024 End: 03-19-2024 Clinisync Result Encounter Mena CARRILLO Work Phone: [facility] External Department Unsolicited Start: 03-05-2024 End: 03-05-2024 Emergency department patient visit Services Family [facility] Work Phone: [facility] Work Phone: Start: 03-01-2024 End: 03-01-2024 Orders Only Veda Hayes RN Maternal- Medic ine at [facility] Comment on above: Encounter for follow -up ultrasound of anatomy (Primary Dx); History of pre-eclampsia in prior , currently ; History of delivery, currently ; Obesity affecting in second trimester, unspecified obesity type Start: 02-26-2024 End: 02-26-2024 Emergency department patient visit Services Family [facility] Work Phone: [facility] Work Phone: Start: 02-23-2024 End: 02-23-2024 [...] Not Available Start: 02-17-2024 End: 02-17-2024 ambulatory [facility] Start: 01-26-2024 End: 01-26-2024 Clinisync Result Encounter Tacho Shon DO Work Phone: [facility] External Department Unsolicited Start: 01-26-2024 End: 01-26-2024 Clinisync Result Encounter Tacho Shon DO Work Phone: [facility] External Department Unsolicited Start: 01-20-2024 End: 01-20-2024 Office outpatient visit 15 minutes Tacho Shon DO Work Phone: [facility] Comment on above: Second trimester pre gnancy Start: 01-20-2024 End: 01-20-2024 ambulatory TACHO SHON Not Available Start: 01-19-2024 End: 01-19-2024 ambulatory [facility] Start: 12-23-2023 End: 12-23-2023 ambulatory MENA ANN Not Available Start: 11-25-2023 End: 11-25-2023 ambulatory TACHO SHON Not Available Start: 10-30-2023 End: 10-30-2023 ambulatory TACHO MENENDEZ Not Available Start: 10-09-2023 End: 10-09-2023 ambulatory LATONIA GREENE Facility:[facility] Start: 10-06-2023 End: 10-06-2023 Emergency department patient visit Services [facility] Work Phone: [facility] Work Phone: Start: 09-17-2023 End: 09-17-2023 ambulatory ANNA ANGEL Facility:[facility] Start: 09-17-2023 End: 09-17-2023 Nutrition therapy Anna Angel BAÑUELOS Nutrition Therapy Comment on above: Obesity, Class III, BMI 40-49.9 (morbid obesity) (HCC) (Primary Dx); Dietary counseling Start: 09-17-2023 End: 09-17-2023 Telemedicine consultation with patient Anna Ortiz SARMAD Nutrition Therapy Start: 09-15-2023 Admission to [facility] Tonya Senior APRN.ORGANIZATIONAL PSYCHOLOGIST Work Phone: General Surgery Comment on above: Results Start: 09-15-2023 E-mail encounter fro m caregiver Tonya Senior [employer] ASSOCIATE.ORGANIZATIONAL PSYCHOLOGIST Work Phone: General Surgery Start: 09-11-2023 Telephone encounter Tonya Senior APRN.ORGANIZATIONAL PSYCHOLOGIST Work Phone: General Surgery Comment on above: Results Start: 09-08-2023 End: 09-08-2023 ambulatory TONYA SENIOR Facility:[facility] Start: 09-05-2023 End: 09-05-2023 ambulatory TONYA SENIOR Facility:[facility] Start: 09-01-2023 End: 09-02-2023 ambulatory LATONIA GREENE Facility:[facility] Start: 09-01-2023 End: 09-01-2023 Admission to same day surgery center Latonia Greene PhD Work Phone: General Surgery BMI PSYL Comment on above: NO SHOW (Primary Dx) Start: 09-01-2023 End: 09-01-2023 Telemedicine consultation with patient Latonia Greene PhD Work Phone: General Surgery BMI PSYL Start: 08-20-2023 Admission to [facility] Tonya Ron Parrish IBARRA.ORGANIZATIONAL PSYCHOLOGIST Work Phone: General Surgery Comment on above: Welcome to Bariatric Surgery Start: 08-20-2023 E-mail encounter dena torres caregiver Tonya Ron Senior APRN.ORGANIZATIONAL PSYCHOLOGIST Work Phone: [place] [id number] Start: 08-20-2023 End: 08-20-2023 ambulatory Tonya Ron Parrish IBARRA.ORGANIZATIONAL PSYCHOLOGIST Work Phone: General Surgery Comment on above: Body mass index (BMI ) of 50-59.9 in adult (HCC) (Primary Dx); Angel's thyroiditis; High blood cholesterol Start: 08-20-2023 End: 08-20-2023 Telemedicine consultation with patient Tonya K Parrish IBARRA.ORGANIZATIONAL PSYCHOLOGIST Work Phone: [facility] Start: 08-07-2023 End: 08-07-2023 ambulatory Services [facility] Work Phone: [facility] Work Phone: Start: 08-07-2023 End: 08-07-2023 Patient encounter procedure Services [facility] Work Phone: [facility] Work Phone: Start: 06-13-2023 Follow-up encounter Nicholas Michaels [facility] Start: 06-13-2023 Registered Recurring Services [facility] Work Phone: [facility] Work Phone: Start: 06-13-2023 End: 06-13-2023 ambulatory Services [employer] Other Start: 06-13-2023 End: 06-13-2023 Patient encounter procedure Services Family [facility] Work Phone: [facility]- Start: 01-08-2023 End: 01-08-2023 ambulatory Nicholas Michaels Other [employer] Other Start: 01-08-2023 Nutrition therapy Nicholas Michaels [facility] Start: 06-18-2022 End: 06-18-2022 Emergency department patient visit Services [employer] [facility] Work Phone: [facility] Work Phone: Start: 06-03-2022 End: 06-03-[address] TACHO MENENDEZ Facility: Start: 12-02-2021 End: 12-02-2021 Emergency department patient visit Services [employer] [facility] Work Phone: [facility] Start: 07-08-2020 Patient encounter procedure Bayron Mccarty XD-GKDDW-Rztlyc 310 IVF Work Phone: Start: 07-05-2020 Patient encounter procedure Bayron Mccarty LQ-XRLII-Ajhfum 310 IVF Work Phone: Start: 06-19-2020 Patient encounter procedure Bayron Mccarty EX-FMLHT-Dvpwni 310 IVF Work Phone: Start: 04-14-2020 Patient encounter procedure Bayron Mccarty XJ-QKUHJ-Yhoymi 310 IVF Work Phone: Start: 03-28-2020 Patient encounter procedure Bayron Mccarty QP-PHHBL-Knlefn 310 IVF Work Phone: Start: 2020 Patient encounter procedure Bayron Mccarty ZI-UGGXF-Xpftyd 310 IVF Work Phone: Start: 01-24-2020 Patient encounter procedure Bayron Mccarty DU-PCDRA-Pkbpgy 310 IVF Work Phone: Start: 08-01-2017 End: 08-02-2017 Ambulatory Agustin Patton Facility:[id number] Start: 07-14-2017 End: 07-15-2017 Ambulatory Agustin Patton Facility:[id number] Procedures Date Procedure Procedure Detail Performing [...] Start: 03-05-2024 Plain chest X-ray Servi malina [employer] [facility] Work Phone: Start: 03-05-2024 Respiratory Panel (PCR) Services [employer] [facility] Work Phone: Start: 03-05-2024 Respiratory Panel (PCR) Services [employer] [facility] Work Phone: Start: 03-05-2024 Streptococcus pyogen es antigen assay Services [employer] [facility] Work Phone: Start: 02-26-2024 Streptococcus pyogen es antigen assay Services [employer] [facility] Work Phone: Start: 02-23-2024 Urnls dip stick/tabl et rgnt non-auto w/o micrscp Mena CARRILLO Work Phone: Start: 01-26-2024 ALL THYROID STIM HORMONE Tacho Menendez DO Work Phone: Start: 01-20-2024 Urnls dip stick/tabl et rgnt non-auto w/o micrscp Tacho Menendez DO Work Phone: Start: 12-23-2023 Microscopic observat ion [Identifier] in Cervix by Cyto stain Tacho Menendez DO Work Phone: Start: 07-06-2020 Antibody screen Comment on above: Performed By: #### T +S #### [facility] [address] [place] [address] Start: 07-05-2020 IO Ultrasound, limit ed pelvic, follicle monitoring Bayron Mccaryt Start: 06-26-2020 IO Ultrasound, limit ed pelvic, follicle monitoring Bayron Mccarty Start: 05-10-2020 Assay of progesterone J oslissette Mccarty Adenoid excision Bayron wallace Cholecystectomy Bayron Chen ey SARS Antigen (LFIA) Services [facility] Work Phone: Plan of Treatment Date Care Activity Detail Author Start: 12-22-2028 Screening for malign ant neoplasm of cervix [facility] Start: 12-22-2026 Screening for malign ant neoplasm of cervix Pap Smear Stand Offer Start: 03-01-2025 End: 03-01-2025 US MFM with or without consult US MFM with or without consult Imaging Routine Encounter for follow-up ultrasound of anatomy History of pre-eclampsia in prior , currently History of delivery, currently Obesity affecting in second trimester, unspecified obesity type Expected: 03/01/2025 (Approximate), Expires: 03/01/2025 [id number] Work Phone: Comment on above: Expected: 03/01/2025 (Approximate), Expires: 03/01/2025 Start: 01-18-2025 Adult [facility] Start: 01-18-2025 Tobacco Screening [facility] Start: 05-27-2024 End: 05-27-2024 Patient encounter procedure 05/27/2024 10:20 AM EST Routine [facility] [address] [place] [phone] Tacho Menendez DO [address] [place] [address] [facility] Start: 05-26-2024 End: 05-26-2024 Patient encounter procedure [facility] Comment on above: Arrived Start: 05-17-2024 Following clinical pathway protocol [facility] Start: 05-17-2024 End: 05-17-2024 Patient encounter procedure [facility] Comment on above: Arrived Start: 05-17-2024 End: 05-17-2025 CULTURE, GROUP B STREP WITH SUSCEPTIBLITY CULTURE, GROUP B STREP WITH SUSCEPTIBLITY Lab Routine Third trimester Expected: 05/17/2024, Expires: 05/17/2025 [facility] Work Phone: Comment on above: Expected: 05/17/2024 , Expires: 05/17/2025 Start: 05-17-2024 Group B Streptococcu s Culture Group B Streptococcus Culture [facility] Start: 05-03-2024 End: 05-03-2024 Patient encounter procedure 05/03/2024 2:50 PM EST Routine [facility] [address] [place] [phone] Mena Ann PA [address] [place] [address] [facility] Start: 04-22-2024 End: 04-22-2025 [...] Routine [facility] [address] [place] [address] Mena Ann PA [address] [place], [place] [id number] [facility] Start: 03-30-2024 End: 03-30-2024 Patient encounter procedure 03/30/2024 2:45 PM EST Appointment [facility] [address] [place] [phone] [facility] Start: 03-22-2024 End: 03-22-2024 Patient encounter procedure 03/22/2024 1:50 PM EST Routine [facility] [address] [place] [address] Tacho Menendez DO [address] [place] [address] [facility] Start: 03-22-2024 End: 03-22-2024 Professional / ancillary services management 03/22/2024 1:00 PM EST Ancillary Procedure [facility] [address] [place] [phone] [facility] Start: 03-16-2024 End: 03-16-2024 Patient encounter procedure 03/16/2024 1:30 PM EST Routine [facility] [address] [place] [phone] Tacho Menendez DO [address] [place] [address] [facility] Start: 02-23-2024 End: 02-22-2025 [...] mellitus screening Expected: 02/23/2024 (Approximate), Expires: 02/22/2025 [facility] Comment on above: Expected: 02/23/2024 (Approximate), Expires: 02/22/2025 Start: 02-23-2024 End: 02-22-2025 US for US OB SCAN FOR GROWTH Imaging Routine size inconsistent with dates H/O premature delivery Expected: 02/23/2024 (Approximate), Expires: 02/22/2025 [facility] Comment on above: Expected: 02/23/2024 (Approximate), Expires: 02/22/2025 Start: 02-23-2024 End: 02-23-2024 Patient encounter procedure 02/23/2024 1:40 PM EDT Routine [facility] [address] [place] [phone] Mena Ann PA [address] [place], [place] [id number] Arrived [facility] Comment on above: Arrived Start: 02-18-2024 End: 02-18-2024 Patient encounter procedure 02/18/2024 2:30 PM EDT Routine [facility] [address] [place] [id number] Mena Ann PA [address] [place] [address] [place] [address] [facility] Start: 01-11-2024 COVID-19 Vaccine ( season) COVID-19 Vaccine () [facility] Start: 01-11-2024 Influenza vaccination N [facility] Start: 09-17-2023 End: 09-17-2023 Nutrition therapy 09/17/2023 2:30 PM EDT [facility] Nutrition Therapy [address] [address] Anna Ortiz, SARMAD [address] [place] [address] Red/Davis/0 Diet/[address] Nutrition Therapy Comment on above: Red/Davis/[address] Start: 09-12-2023 End: 09-12-2023 Admission to same day surgery center 09/12/2023 3:30 PM EDT [facility] General Surgery [address] [id number] Joo Bradley MD [address] [place], [place] [id number] Red/Kirk/[address] General Surgery Comment on above: Red/Kirk/0 Diet/Anth em Start: 09-05-2023 End: 09-05-2023 ambulatory 09/05/2023 11:45 AM EDT Results Only [facility] [address] [place] [address] [place] [address] [facility] Start: 08-20-2023 End: 11-19-2023 25-hydroxyvitamin D3 [Mass/volume] in Serum or Plasma VITAMIN D 25 HYDROXY Lab Routine Body mass index (BMI) of 50-59.9 in adult (HCC) Expected: 08/20/2023, Expires: 11/19/2023 [facility] Work Phone: Comment on above: Expected: 08/20/2023 , Expires: 11/19/2023 Start: 08-20-2023 End: 11-19-2023 CBC W Auto Differential panel - Blood COMPLETE BLOOD COUNT AND DIFFERENTIAL Lab Routine Body mass index (BMI) of 50-59.9 in adult ([facility]) Expected: 08/20/2023, Expires: 11/19/2023 [facility] Work Phone: Comment on above: Expected: 08/20/2023 , Expires: 11/19/2023 Start: 08-20-2023 End: 11-19-2023 Cobalamin (Vitamin B12) [Mass/volume] in Serum or Plasma VITAMIN B12 Lab Routine Body mass index (BMI) of 50-59.9 in adult ([facility]) Expected: 08/20/2023, Expires: 11/19/2023 [facility] Work Phone: Comment on above: Expected: 08/20/2023 , Expires: 11/19/2023 Start: 08-20-2023 End: 11-19-2023 Comprehensive metabolic 2000 panel - Serum or Plasma COMPREHENSIVE METABOLIC PANEL Lab Routine High blood cholesterol Body mass index (BMI) of 50-59.9 in adult ([facility]) Expected: 08/20/2023, Expires: 11/19/2023 [facility] Work Phone: Comment on above: Expected: 08/20/2023 , Expires: 11/19/2023 Start: 08-20-2023 End: 11-19-2023 Ferritin [Mass/volume] in Serum or Plasma FERRITIN Lab Routine Body mass index (BMI) of 50-59.9 in adult ([facility]) Expected: 08/20/2023, Expires: 11/19/2023 [facility] Work Phone: Comment on above: Expected: 08/20/2023 , Expires: 11/19/2023 Start: 08-20-2023 End: 11-19-2023 Folate [Mass/volume] in Serum or Plasma FOLATE, SERUM Lab Routine Body mass index (BMI) of 50-59.9 in adult ([facility]) Expected: 08/20/2023, Expires: 11/19/2023 [facility] Work Phone: Comment on above: Expected: 08/20/2023 , Expires: 11/19/2023 Start: 08-20-2023 End: 11-19-2023 Helicobacter pylori IgG Ab [Presence] in Serum or Plasma by Immunoassay H PYLORI IGG AB Lab Routine Body mass index (BMI) of 50-59.9 in adult ([facility]) Expected: 08/20/2023, Expires: 11/19/2023 [facility] Work Phone: Comment on above: Expected: 08/20/2023 , Expires: 11/19/2023 Start: 08-20-2023 End: 11-19-2023 Hemoglobin A1c in Blood HEMOGLOBIN A1C Lab Routine Body mass index (BMI) of 50-59.9 in adult ([facility]) Expected: 08/20/2023, Expires: 11/19/2023 [facility] Work Phone: Comment on above: Expected: 08/20/2023 , Expires: 11/19/2023 Start: 08-20-2023 End: 11-19-2023 Iron and Iron binding capacity panel - Serum or Plasma IRON AND TIBC Lab Routine Body mass index (BMI) of 50-59.9 in adult ([facility]) Expected: 08/20/2023, Expires: 11/19/2023 [facility] Work Phone: Comment on above: Expected: 08/20/2023 , Expires: 11/19/2023 Start: 08-20-2023 End: 11-19-2023 Lipid 1996 panel - Serum or Plasma LIPID PANEL BASIC Lab Routine High blood cholesterol Body mass index (BMI) of 50-59.9 in adult ([facility]) Expected: 08/20/2023, Expires: 11/19/2023 [facility] Work Phone: Comment on above: Expected: 08/20/2023 , Expires: 11/19/2023 Start: 08-20-2023 End: 11-19-2023 Natriuretic peptide.B prohormone N-Terminal [Mass/volume] in Serum or Plasma NT PRO BNP Lab Routine Body mass index (BMI) of 50-59.9 in adult ([facility]) Expected: 08/20/2023, Expires: 11/19/2023 [facility] Work Phone: Comment on above: Expected: 08/20/2023 , Expires: 11/19/2023 Start: 08-20-2023 End: 11-19-2023 NICOTINE & METAB, UR NICOTINE & METAB, UR Lab Routine Body mass index (BMI) of 50-59.9 in adult ([facility]) Expected: 08/20/2023, Expires: 11/19/2023 [facility] Work Phone: Comment on above: Expected: 08/20/2023 , Expires: 11/19/2023 Start: 08-20-2023 End: 11-19-2023 Thyrotropin [Units/volume] in Serum or Plasma THYROID STIMULATING HORMONE Lab Routine Angel's thyroiditis Body mass index (BMI) of 50-59.9 in adult ([facility]) Expected: 08/20/2023, Expires: 11/19/2023 [facility] Work Phone: Comment on above: Expected: 08/20/2023 , Expires: 11/19/2023 Start: 08-20-2023 End: 11-19-2023 TOXICOLOGY SCREEN, ROUTINE URINE TOXICOLOGY SCREEN, ROUTINE URINE Lab Routine Body mass index (BMI) of 50-59.9 in adult ([facility]) Expected: 08/20/2023, Expires: 11/19/2023 [facility] Work Phone: Comment on above: Expected: 08/20/2023 , Expires: 11/19/2023 Start: 08-20-2023 End: 11-19-2023 VITAMIN B1 (THIAMINE), WHOLE BLOOD VITAMIN B1 (THIAMINE), WHOLE BLOOD Lab Routine Body mass index (BMI) of 50-59.9 in adult ([facility]) Expected: 08/20/2023, Expires: 11/19/2023 [facility] Work Phone: Comment on above: Expected: 08/20/2023 , Expires: 11/19/2023 Start: 05-12-2023 Behavioral Health Screening Behavioral Health Screening [facility] Start: 01-10-2023 Covid-19 Vaccine ( season) Covid-19 Vaccine ( season) [facility] Start: 12-02-2021 Plain chest X-ray XR chest 1V portab le [facility] Start: 12-02-2021 XR Chest Single view [facility] Work Phone: Start: 2021 Screening for malign ant neoplasm of cervix HPV Testing [facility] Start: 2012 Screening for malign ant neoplasm of cervix Pap Testing [facility] Start: 2010 Hepatitis B Vaccine (1 of 3 - 19+ 3-dose series) Hepatitis B Vaccine (1 of 3 - 19+ 3-dose series) [facility] Start: 2009 Adult BMI Follow Up Plan Adult BMI Follow Up Plan [facility] Start: 2009 HIV screening HIV Screening [facility] Start: 2003 [facility]: 2002 DTaP,Tdap and Td Vaccines (6 - Tdap) DTaP,Tdap and Td Vaccines (6 - Tdap) [facility] Start: 2002 Urine microalbumin profile DTaP,Tdap,Td Vaccine (6 - Tdap) [facility] End: 08-19-2024 ECG COMPLETE ECG COMPLETE ECG Routine Body mass index (BMI) of 50-59.9 in adult (HCC) 1 Occurrences starting 08/20/2023 until 08/19/2024 [facility] Work Phone: Comment on above: 1 Occurrences starti 08/20/2023 until 08/19/2024 Patient Education [facility] Work Phone: Patient referral [facility] Work Phone: Thyrotropin [Units/volume] in Serum or Plasma TSH Lab Routine Thyroid disease (CMS/HCC) Ordered: 04/22/2024 [facility] Comment on above: Ordered: 04/22/2024 End: 09-18-2024 US Abdomen RUQ US ABD RIGHT UPPER QUADRANT Radiology Routine Body mass index (BMI) of 50-59.9 in adult (HCC) 1 Occurrences starting 08/20/2023 until 09/18/2024 [facility] Work Phone: Comment on above: 1 Occurrences starti ng 08/20/2023 until 09/18/2024 End: 09-18-2024 XR Chest PA and Lateral XR CHEST 2V FRONTAL/LAT Radiology Routine Body mass index (BMI) of 50-59.9 in adult (HCC) 1 Occurrences starting 08/20/2023 until 09/18/2024 [facility] Work Phone: Comment on above: 1 Occurrences starti ng 08/20/2023 until 09/18/2024 [id number] 310 IVF Work Phone: [facility] NEGATED: Highlighted row has been ruled out! Planned Goals not documented [id number] 310 IVF Work Phone: Immunizations Immunization Date Immunization Notes Care Provider Sonia miramontes 03-11-2023 influenza virus vacc ine, unspecified formulation Tacho Menendez DO Work Phone: [facility] Payers Date Payer Category Payer Self-pay [id number] 2022 Medicaid [id number] 2022 Medicaid [id number] [id number] 1991 Unknown [id number] 2.16.840.1.694185.3.579.2.59 3 1991 Unknown [id number] 2.16.840.1.759372.3.579.2.12 86 1991 Unknown [id number] 2.16.840.1.229310.3.579.2.12 86 1991 Unknown [id number] 2.16.840.1.783827.3.579.2.12 86 1991 Unknown [id number] 2.16.840.1.937237.3.579.2.12 86 1991 Unknown [id number] 2.16.840.1.310997.3.579.2.12 86 1991 Unknown [id number] 2.16.840.1.900061.3.579.2.12 59 1991 Unknown [id number] 2.16.840.1.945889.3.579.2.12 59 1991 Unknown [id number] 2.16.840.1.993672.3.579.2.12 59 1991 Unknown [id number] 2.16.840.1.316940.3.579.2.12 59 1991 Unknown [id number] 2.16.840.1.718692.3.579.2.12 59 1991 Unknown [id number] 2.16.840.1.668556.3.579.2.12 59 1991 Unknown [id number] 2.16.840.1.736460.3.579.2.12 59 1991 Unknown [id number] 2.16.840.1.299673.3.579.2.12 59 1991 Unknown [id number] 2.16.840.1.177169.3.579.2.12 59 1991 Unknown [id number] 2.16.840.1.404702.3.579.2.12 59 1991 Unknown [id number] 2.16.840.1.378215.3.579.2.12 59 1959 Medicaid [id number] Private Health Insurance [facility] [id number] Unknown [id number] Unknown Regular Insurance [id number] Unknown [employer] [id number] Unknown Regular Auto/Medical [id number] Unknown [id number] 2.16.840.1.730554.3.579.2.53 1 Unknown [id number] 2.16.840.1.312102.3.579.2.53 1 Unknown [id number] 2.16.840.1.025721.3.579.2.53 1 Unknown [id number] 2.16.840.1.242798.3.579.2.53 1 Unknown [id number] 2.16.840.1.351809.3.579.2.53 1 Social History Date Type Detail Facility Start: 12-02-2021 End: 05-17-2023 Tobacco smoking status NHIS Never smoked tobacco (finding) [facility] Start: 1990 Sex Assigned At Female F [facility] Start: 08-20-2023 End: 10-30-2023 Sex Assigned At [employer] Other Start: 05-17-2023 End: 08-20-2023 Tobacco use and exposure Smokeless tobacco non-user [facility] Work Phone: Start: 08-20-2023 End: 05-26-2024 Alcohol intake Current drinker of alcohol (finding) [facility] Start: 08-20-2023 End: 10-30-2023 History of Social function [facility] National Score (1-100), lower number is lower risk 86 [facility] Start: 08-20-2023 Alcohol Comment occ [facility] Start: 1990 Sex Assigned At Not on file C [facility] Start: 08-26-2023 Gender identity Identifies as female gender (finding) [facility] Start: 08-26-2023 Sexual orientation Heterosexual (fin kayleen) [facility] Start: 09-14-2023 [facility] How often to you hav [...] Start: 01-19-2024 Alcoholic beverage intake Ex-drinker (finding) [facility]ox Start: 12-13-2014 End: 05-19-2024 Sex Female (finding) [facility] NEGATED: Highlighted row - - [id number] 310 IVF Work Phone: Functional Status Date Assessment Result Facility NEGATED: Highlighted row Functional performance Functional status health issues are not documented Disease [id number] 310 IVF Work Phone: Mental Status Date Assessment Result Facility NEGATED: Highlighted row Cognitive function [Interpretation] Cognitive status health issues are not documented Disease [id number] 310 IVF Work Phone: Clinical Notes 01-08-2023 to 05-26-2024 Priscilla Fernandez LPN - 05/26/2024 2:10 PM Craig Mcbride SITE DAMAGE PREVENTION TECHNICIAN - 05/17/2024 3:10 PM GERARDO Hunter - [...] 06/2019 OTHER SURGICAL HISTORY 2020 IUI 07/10/20 [facility] SALPINGECTOMY Left 2012 ectopic REVIEW [...] nursing note reviewed. Exam conducted with a javascript web developer present. Vitals: Estimated body mass index [...] Tacho Menendez DO documented in this encounter [facility] 05-17-2024 History of Presen t illness Narrative [...] 06/2019 OTHER SURGICAL HISTORY 2020 IUI 07/10/20 [facility] SALPINGECTOMY Left 2011 ectopic REVIEW [...] nursing note reviewed. Exam conducted with a javascript web developer present. Vitals: Estimated body mass index [...] Tacho Menendez DO documented in this encounter [facility] 05-03-2024 History of Presen t illness [...] 06/2019 OTHER SURGICAL HISTORY 2020 IUI 07/10/20 [facility] SALPINGECTOMY Left 2011 ectopic REVIEW [...] of: GERARDO Vazquez documented in this encounter [facility] 04-22-2024 History of Presen t [...] Morbid obesity with BMI of 50.0-59.9, adult ([facility]/HCC) Vaginal delivery HISTORY PAST MEDICAL HISTORY SOCIAL HISTORY Past Medical History: Diagnosis Date Abdominal pain Breast pain, right Cholelithiasis Encounter for cervical smear to confirm findings of recent normal smear following initial abnormal smear 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 Exam conducted with a javascript web developer present. Vitals: Estimated body mass index [...] Tacho Menendez DO documented in this encounter [facility] 04-06-2024 History of Presen t [...] 06/2019 OTHER SURGICAL HISTORY 2020 IUI 07/10/20 [facility] SALPINGECTOMY Left 2011 ectopic REVIEW [...] of: GERARDO Vazquez documented in this encounter [facility] 03-22-2024 History of Presen t [...] obesity with BMI of 50.0-59.9, adult ([facility]) Vaginal delivery Social History Tobacco Use [...] 06/2019 OTHER SURGICAL HISTORY 2020 IUI 07/10/20 [facility] SALPINGECTOMY Left 2011 ectopic REVIEW [...] nursing note reviewed. Exam conducted with a javascript web developer present. Vitals: Estimated body mass index [...] Tacho Menendez DO documented in this encounter [facility] 02-23-2024 History of Presen t [...] Morbid obesity with BMI of 50.0-59.9, adult ([facility]) Vaginal delivery Social History Tobacco Use [...] 06/2019 OTHER SURGICAL HISTORY 2020 IUI 07/10/20 [facility] SALPINGECTOMY Left 2011 ectopic REVIEW [...] nursing note reviewed. Exam conducted with a javascript web developer present. Vitals: Estimated body mass index [...] of: GERARDO Vazquez documented in this encounter [facility] 01-20-2024 History of Presen t [...] 06/2019 OTHER SURGICAL HISTORY 2020 IUI 07/10/20 [facility] SALPINGECTOMY Left 2011 ectopic REVIEW [...] nursing note reviewed. Exam conducted with a javascript web developer present. Vitals: Estimated body mass index [...] notified. Pt has follow up appt at [facility] in four weeks. Pt to return to office in four weeks for scheduled OB appt. Documented by Priscilla Fernandez LPN on behalf of: Tacho Menendez DO documented in this encounter [facility] 10-09-2023 Note HNO ID: [id number] Author: LATONIA GREENE, PhD Service: ? Author Type: Psychologist Type: Progress Notes Filed: 10/17/2023 11:09 Note Text: [facility] BARIATRIC SURGERY BEHAVIORAL HEALTH EVALUATION BMI Surgical Pathway Visit type: Psychology Visit DATE OF SERVICE: October 09, 2023 TIME OF SERVICE: 1:00 PM - 2:00 PM COST CENTER: [facility] CPT CODE: - [id number] Virtual Psych Diagnostic Eval BILLING CODE: ENDO PSYL MAIN Jerel DATE OF FIRST SERVICE THIS CYCLE: October 09, 2023 SESSION #: 1 I have communicated my name and active licensure. The patient's identity and physical location (see below) were verified at the time of this visit. Either the patient or their legal sales representative graphic art has been informed of the risks and benefits of -- and alternatives to -- treatment through a remote evaluation and consents to proceed with the evaluation remotely. This evaluation is NOT intended for forensic, disability or child custody purposes. The patient e-signed a copy of the consent form via [employer] and the [facility] insurance benefits, fees for service, emergency procedures, [...] case of emergency and/or disconnection. [address] [place] [address] ([facility], was mother) Alternate Mandarin Speaking Nanny Bibi Arrieta (Mother) [phone] (Home Phone) Patient identified the following plan to follow in case of emergency: Go to emergency room (nearest is [facility]) or call 911. IDENTIFYING INFORMATION: Ms. Jaleesa [...] pt has l (more content not included)... [facility] 09-22-2023 Telephone encounter Note Can not schedule patient as there is already a patient scheduled for that day and time. Please advise. Thanks Meme Castrejon [facility] 09-22-2023 Telephone encounter Note ----- Message from Anna Ortiz RD sent at 09/17/2023 3:17 PM EDT ----- Regarding: virtual follow up Please schedule for a virtual up 10/16 at 1. The patient is aware, no call needed. Thank you! Anna [facility] 09-22-2023 Miscellaneous Notes Can not schedule patient [...] Tonya Senior APRN.MERON documented in this encounter [facility] 09-17-[address] - 09/17/2023 3:12 PM EDT 1. Read Nutritional Guidelines Section of Your Guide to Surgery by next session [email or web address] -/[email or web address]/ [email or web address]?[email or web address] 2. Do not skip [...] full-liquid diet. Examples: Slim Fast Advanced Nutrition [place] Breakfast Essentials Light Start Drink mixed with [...] in the AM, 2 in the PM) www.bariatricfusion.Brandicted - [employer]: 1 Bariatric Multivitamin and Calcium Citrate (total of 3506-2809 mg/day) * take calcium citrate separately from Multivitamin with iron at least 2 hours apart and 4 hours apart from additional calcium www.Yecuris.Brandicted - Bariatric Choice: 4 Complete Multivitamins (chewables) per day Www.bariatricchoShanghai Jade Tech.Brandicted - Bariatric Advantage: 2 Multivitamins and 3 Calcium Citrate Chewables per day * take calcium citrate separately from Multivitamin with iron at least 2 hours apart and 4 hours apart from additional calcium Www.bariatricadArdmore Regional Surgery Centerage.Brandicted Start practicing eating slowly, chewing each bite of food 20-30 x per bite, making meals last 20-30 minutes, separatign food and fluids by 30 minutes . Have all meals and snacks at the table with no distractions. Make placemat for reminders; work towards normal sleep/wake pattern Pre-op goal weight: 281 pounds Protein needs: 85 grams per day documented in this encounter [facility] 09-17-2023 Note HNO ID: [id number] Author: ANNA ORTIZ RD Service: ? Author Type: Registered Dietitian Type: Progress Notes Filed: 09/17/2023 15:19 Note Text: [facility] Nutrition Therapy: Virtual Consult - Initial Assessment I have communicated my name and active licensure. The patient?s identity and physical location were verified at the time of this visit. Either the patient or their legal sales representative graphic art has been informed of the risks and [...] Guide to Surgery by next session [email or web address].[email or web address] -/scassets/files/org/[email or web address]/ [email or web address]?[email or web address] 2. Do not skip [...] Examples: ? Slim Fast Advanced Nutrition ? [place] Breakfast Essentials ?Light Start? Drink mixed with [...] AM, 2 in the PM) www.bariatricfusion.com - [employer]: 1 Bariatric Multivitamin and Calcium Citrate (total of 5891-4022 mg/day) * take calcium citrate separately from Multivitamin with iron at least 2 hours apart and 4 hours apart from additional calcium www.Yecuris.Brandicted - Bariatric Choice: 4 Complete Multivitamins (chewables) [...] and using Phen (more content not included)... [facility] 09-17-2023 History of Presen t illness Narrative [facility] Nutrition Therapy: Virtual Consult - Initial Assessment I have communicated my name and active licensure. The patient s identity and physical location were verified at the time of this visit. Either the patient or their legal sales representative graphic art has been informed of the risks and [...] Guide to Surgery by next session [email or web address].[email or web address] -/[email or web address]/files/org/[email or web address]/ [email or web address]?la=[email or web address] 2. Do not skip [...] full-liquid diet. Examples: Slim Fast Advanced Nutrition [place] Breakfast Essentials Light Start Drink mixed with [...] Bariatric Multivitamin and Calcium Citrate (total of 2992-1253 mg/day) * take calcium citrate separately from Multivitamin with iron at least 2 hours apart and 4 hours apart from additional calcium www.Yecuris.Brandicted - Bariatric Choice: 4 Complete Multivitamins (chewables) per day Www.bariatricClarimedix.Brandicted - Bariatric Advantage: 2 Multivitamins and 3 Calcium Citrate Chewables per day * take calcium citrate separately from Multivitamin with iron at least 2 hours apart and 4 hours apart from additional calcium Www.bariatricadvantage.Brandicted Start practicing eating slowly, chewing each bite [...] suggested by 180 Initial weight: 295 lbs. [place] body weight is 155 lbs. Excess body weight is 140 lbs. Goal weight pre-op is 281 lbs. Protein needs are estimated at 85gm (1.2 - protein/kg IBW) Patient meets the National Institutes of Health guidelines for weight loss surgery and has [address] [place] Insurance therefore is required to complete 0 [...] TIME: 2:25 PM documented in this encounter [facility] 09-11-2023 Telephone encounter Note Attempted to call pt, re: hypothyroid and low vitamin d levels, no answer, left vm. Tonya Senior APRN.ORGANIZATIONAL PSYCHOLOGIST [facility] 09-01-2023 Note HNO ID: [id number] Author: LATONIA GREENE, PhD Service: ? Author Type: Psychologist Type: Progress Notes Filed: 09/01/2023 13:22 Note Text: [facility] Progress Note 09/01/2023 Billing code: Jerel Patient did not attend, cancel, or reschedule this appointment. Provider left HIPAA compliant voicemail and MyChart message with contact information to reschedule. Latonia Greene PhD Clinical Psychologist [facility] 09-01-2023 History of Presen t illness Narrative [facility] Progress Note 09/01/2023 Billing code: Jerel Patient did not attend, cancel, or reschedule this appointment. Provider left HIPAA compliant voicemail and MyChart message with contact information to reschedule. Latonia Greene PhD Clinical Psychologist documented in this encounter [facility] 08-20-2023 Note HNO ID: [id number] Author: TONYA SENIOR APRN.ORGANIZATIONAL PSYCHOLOGIST Service: ? Author Type: Nurse Practitioner Type: Progress Notes Filed: 08/20/2023 16:21 Note Text: have communicated my name and active licensure. The patient's identity and physical location were verified at the time of this visit. Either the patient or their legal sales representative graphic art has been informed of the risks and benefits of -- and alternatives to -- treatment through a remote evaluation and consents to proceed with the evaluation remotely. BMI MEDICAL CONSULT I have communicated my name and active licensure. The patient's identity and physical location were verified at the time of this visit. Either the patient or their legal sales representative graphic art has been informed of the risks and [...] index (BMI) of 50-59.9 in adult ([facility]) 08/20/2023 Angel's thyroiditis 08/20/2023 High blood [...] index (BMI) of 50-59.9 in adult ([facility]) - ICD9: V85.43, ICD10: Z68.43 (primary diagnosis) Weight decreasing - Behavioral intervention, - Medical nutrition therapy with dietitian, and - Psychology - COMPLETE BLOOD COUNT AND DIFFERENTIAL - COMPREHENSIVE METABOLIC PANEL - FERRITIN - FOLATE, SERUM - HEMOGLOBIN A1C - (more content not included)... [facility] 08-20-2023 History of Presen t illness Narrative Images from the original note were not included. have communicated my name and active licensure. The patient's identity and physical location were verified at the time of this visit. Either the patient or their legal sales representative graphic art has been informed of the risks and benefits of -- and alternatives to -- treatment through a remote evaluation and consents to proceed with the evaluation remotely. BMI MEDICAL CONSULT I have communicated my name and active licensure. The patient's identity and physical location were verified at the time of this visit. Either the patient or their legal sales representative graphic art has been informed of the risks and [...] index (BMI) of 50-59.9 in adult ([facility]) 08/20/2023 Angel's thyroiditis 08/20/2023 High blood [...] index (BMI) of 50-59.9 in adult ([facility]) - ICD9: V85.43, ICD10: Z68.43 (primary [...] Obesity Medicine Visit documented in this encounter [facility] 06-13-2023 Evaluation note Encounter Date Diagnosis Assessment [...] [facility] bariatric surgery program -Rgwro-qh-xrxe A1c December 2022 5.4%-Follow up in clinic in 8 weeksThis note was created with voice recognition software. 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 Jun, Dietary surveillance and counseling (ICD-10 - [...] for a goal of 5% weight reduction. [employer] Other 08-30-2023 Evaluation note* Encounter Date Diagnosis [...] on in the past and denies side ndwibzf-Lakvq-qz-care A1c today 5.4%-Follow up in clinic in 4 weeksThis note was created with voice recognition software. 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 Dec, Dietary surveillance and counseling (ICD-10 - [...] premade protein drink for breakfast, by plain Uzbek yogurt and flavor yourself with cinnamon or [...] with the patient, and documenting clinical information. [employer] Other Chief complaint+Reason for visit Narrative* Chief Complaint Obesity Reason for Visit Exercise counseling Severe obesity (BMI >= 40) [facility] Work Phone: Chief complaint+Reason for visit Narrative* Chief Complaint Pos test, Cramping, Vaginal bleeding Reason for Visit Exercise counseling Severe obesity (BMI >= 40) [facility] Work Phone: Evaluation noteNo assessment information available [facility] Work Phone: Evaluation note* Diagnosis Onset Date Resolution Status Exercise counseling acute Severe obesity (BMI >= 40) delilah kevin [facility] Work Phone: Evaluation note* Diagnosis Body mass index (BMI) of 50-59.9 in adult ([facility])- Primary Body Mass Index 50.0-59.9, adult Angel's thyroiditis Chronic lymphocytic thyroiditis High blood cholesterol Pure hypercholesterolemia [facility] Diagnosis NO SHOW- Primary documented in this encounter [facility] note* Diagnosis Obesity, Class III, BMI 40-49.9 (morbid obesity) ([facility])- Primary Morbid obesity Dietary counseling Dietary surveillance and counseling [facility]* Diagnosis Vitamin D deficiency- Primary Unspecified vitamin D deficiency [facility]* Diagnosis 25 weeks gestation of Second trimester state, incidental Diabetes mellitus screening Screening for diabetes mellitus size inconsistent with dates H/O premature delivery documented in this encounter [facility] HealthcareEvaluation note* Diagnosis Encounter for follow-up ultrasound of anatomy- Primary History of pre-eclampsia in prior , currently with other poor obstetric history History of delivery, currently with history of pre-term labor Obesity affecting in second trimester, unspecified obesity type documented in this encounter [facility]* Diagnosis Third trimester state, incidental 29 weeks gestation of documented in this encounter [facility] HealthcareEvaluation note* Diagnosis Third trimester state, incidental 31 weeks gestation of H/O premature delivery documented in this encounter [facility] HealthcareEvaluation note* Diagnosis 33 weeks gestation of Third trimester state, incidental H/O premature delivery Thyroid disease ([facility]) Unspecified disorder of thyroid H/O pre-eclampsia [...] Fallopian tube removed Hospitalization History See Above [employer] Other Hospital Discharge instructions Additional Instructions You may take jsmv-rzq-wllixpe cough and cold medication as needed You may take gtgz-qby-miladyg Tylenol and/or ibuprofen as needed Increase oral fluids Follow-up with family doctor as needed Return to the ER for any acute difficulty breathing high fever vomiting or [facility] Hospital Discharge instructions Additional Instructions Nothing into vagina until seen by J2EE APPLICATION DEVELOPER May take Tylenol for discomfort Increase oral fluids Follow-up with J2EE APPLICATION DEVELOPER Return to the ER for heavy bleeding greater than a pad an hour feeling dizzy lightheaded or any other [facility] Work Phone: Hospital Discharge instructions Additional Instructions Follow-up with your OB in the next week.[facility] Work Phone: InstructionsNot on filedocumented in this encounter [facility] for referral (narrative)* Diagnostic Procedure Only (Routine) - Pending Review Specialty Diagnoses / Procedures Referred By Wendy campos Referred To Contact [facility] Diagnoses Body mass index (BMI) of 50-59.9 in adult (HCC) Procedures US ABD RIGHT UPPER QUADRANT US ABDOMINAL REAL TIME W/IMAGE LIMITED Tonya Senior, FRED.ORGANIZATIONAL PSYCHOLOGIST [address] [place] [address] [place] [phone] Referral ID Status Reason Start Date Expiration Date Visits Requested Visits Authorized [id number] Pending Review Auto-Generat ed Referral 08/20/2023 09/18/2024 1 1 * Outpatient Procedure (Routine) - Pending Review Specialty Diagnoses / Procedures Referred By Wendy t Referred To [facility] Diagnoses Body mass index (BMI) of 50-59.9 in adult (HCC) Procedures ECG COMPLETE ECG ROUTINE ECG W/LEAST 12 LDS W/I&R Tonya Senior APRN.CNP [address] [place] [address] [facility] [address] [place] [id number] Referral ID Status Reason Start Date Expiration Date Visits Requested Visits Authorized [id number] Pending Review Auto-Generat ed Referral 08/20/2023 08/19/2024 1 1 [facility] Summary Purpose Family History Mother Name Dates [...] section and content) DATE CREATED AUTHOR 10/31/2017 [facility] DATE CREATED AUTHOR AUTHOR'S ORGANIZ ATION 04/23/2020 [facility] DATE CREATED AUTHOR AUTHOR'S ORGANIZ ATION 08/08/2020 [facility] DATE CREATED AUTHOR AUTHOR'S ORGANIZ ATION 08/22/2020 [facility] ica Center DATE CREATED AUTHOR AUTHOR'S ORGANIZ ATION 06/11/2022 [facility] DATE CREATED AUTHOR AUTHOR'S ORGANIZ ATION 09/06/2023 [facility] DATE CREATED AUTHOR AUTHOR'S ORGANIZ ATION 10/03/2023 [facility] DATE CREATED AUTHOR AUTHOR'S ORGANIZ ATION 10/18/2023 [facility] DATE CREATED AUTHOR AUTHOR'S ORGANIZ ATION 01/20/[address] [facility] DATE CREATED AUTHOR AUTHOR'S ORGANIZ ATION 04/30/2024 [facility] DATE CREATED AUTHOR AUTHOR'S ORGANIZ ATION 05/24/2024 [facility] DATE CREATED AUTHOR AUTHOR'S ORGANIZ ATION 05/29/2024 [facility] d[facility] Specialists EPIC Care Teams [...] Team Status: Inactive Member Role Status Dates [facility] Primary Care Provider Active Start: October 06, 2023 End: October 06, 2023 MARGOT McmillanP- Emergency Provider Active Start: October 06, 2023 End: October 06, 2023 Team Status: Inactive Member Role Status Dates [facility] Primary Care Provider Active Start: February 26, 2024 End: February 26, 2024 Ck To PA-C Emergency Provider Active Start: February 26, 2024 End: February 26, 2024 Team Status: Inactive Member Role Status Dates Services [facility] Primary Care Provider Active Start: [...] or prosecute any alcohol or drug abuse patient.[facility] the event this information is protected by the Federal Confidentiality of Alcohol and Drug Abuse Patient Records regulations: The Federal rules restrict any use of the information to criminally investigate or prosecute any alcohol or drug abuse patient.[facility] the event this information is protected by the Federal Confidentiality of Alcohol and Drug Abuse Patient Records regulations: The Federal rules restrict any use of the information to criminally investigate or prosecute any alcohol or drug abuse patient.[facility] the event this information is protected by the Federal Confidentiality of Alcohol and Drug Abuse Patient Records regulations: The Federal rules restrict any use of the information to criminally investigate or prosecute any alcohol or drug abuse patient.[facility] the event this information is protected by the Federal Confidentiality of Alcohol and Drug Abuse Patient Records regulations: The Federal rules restrict any use of the information to criminally investigate or prosecute any alcohol or drug abuse patient.[facility] the event this information is protected by the Federal Confidentiality of Alcohol and Drug Abuse Patient Records regulations: The Federal rules restrict any use of the information to criminally investigate or prosecute any alcohol or drug abuse patient.[facility] FOR RECORDS PERTAINING TO PATIENTS WHO ARE [...] BE BASED ON THE PRIMARY CLINICAL RECORDS. [facility] [employer] [facility]. provides no warranty or guarantee of the accuracy or completeness of information in this document.
[2024-06-03 11:05] VITALS: BP 130/86; PULSE 102; TEMP 36.6; O2SAT 96
== END 2024-06-03 12:55 | disposition home or self-care (01) | DRG 560 ==
LOC: FBC 06-02 06:55 → MS 06-03 00:38 → FBC 06-03 07:15 → MS 06-03 07:15
PROVIDERS: Admitting Provider Obstetrics & Gynecology; Visit Provider Obstetrics & Gynecology
DX: O99.214 Obesity complicating childbirth (principal); E66.01 Morbid (severe) obesity due to excess calories; Z3A.39 39 weeks gestation of pregnancy; Z37.0 Single live birth; O99.284 Endocrine, nutritional and metabolic diseases complicating childbirth; E06.3 Autoimmune thyroiditis; E03.9 Hypothyroidism, unspecified; Z87.59 Personal history of other complications of pregnancy, childbirth and the puerperium; Z90.49 Acquired absence of other specified parts of digestive tract; Z87.51 Personal history of pre-term labor
CPT/HCPCS: 36415; 51702; 59050; 59410; 76818; 80307; 85025; 85027; 86850; 86900; 86901; J2300; J2795

== ENCOUNTER 2024-12-29 20:02 | Outpatient (REF) | payer MEDICAID, SELFPAY ==
--- OUTSIDE RECORDS SUMMARY | 2022-02-01 11:30 | XMS_ITS | Continuity of Care Document ---
Author Organization [facility] Address [address] [place] [address] Phone Care Team Providers Care It Investment/Portfolio Manager Name Role Phone Estefanía Schuler DDS Unavailable Unavailable Allergies, Adverse Reactions, Alerts Substance Reaction Status Criticality No Known Allergies Active No Inform ation Medications Medication Instructions Dosage Effective Dates (start - stop) Status Comments No Drug Therapy Prescribed Procedures Procedure Date Comp Oral Eval New/estab Patient 2021 Intraoral-complete Series (bw) Oral Hygiene Instruction PREV VISIT, EST, AGE 18-39 OFFICE/OUTPATIENT VISIT, EST OFFICE/OUTPATIENT VISIT, EST OFFICE/OUTPATIENT VISIT, EST OFFICE/OUTPATIENT VISIT, EST ROUTINE VENIPUNCTURE PREV VISIT, EST, AGE 18-39 PREV VISIT, EST, AGE 18-39 URINE TEST IMMUNIZATION ADMIN HPV 9 Valent IMMUNIZATION ADMIN HPV 9 Valent OFFICE/OUTPATIENT VISIT, EST OFFICE/OUTPATIENT VISIT, EST URINE TEST IMMUNIZATION ADMIN H PAPILLOMA VACC 3 DOSE IM IMMUNIZATION ADMIN, EACH ADD FLU VAC NO PRSV 4 VIRIDIANA 3 YRS+ IMMUNIZATION ADMIN H PAPILLOMA VACC 3 DOSE IM IMMUNIZATION ADMIN, EACH ADD FLU VAC NO PRSV 4 VIRIDIANA 3 YRS+ IMMUNIZATION ADMIN HPV 9 Valent IMMUNIZATION ADMIN HPV 9 Valent BX/CURETT OF CERVIX W/SCOPE URINE TEST PREV VISIT, EST, AGE 18-39 ROUTINE VENIPUNCTURE HIV-1 URINE TEST OFFICE/OUTPATIENT VISIT, EST OFFICE/OUTPATIENT VISIT, EST SMEAR, WET MOUNT, SALINE/INK URINE TEST OFFICE/OUTPATIENT VISIT, EST OFFICE/OUTPATIENT VISIT, EST ODH SPECIMEN HANDLING (GC/CHLAMYDIA) Jul OFFICE/OUTPATIENT VISIT, EST OFFICE/OUTPATIENT VISIT, EST ODH SPECIMEN HANDLING (GC/CHLAMYDIA) Jul URINE TEST PREV VISIT, EST, AGE 18-39 ODH SPECIMEN HANDLING (GC/CHLAMYDIA) Nov Condoms Junel FE 05/31 Thin Prep(R) Imaging System Pap W/Reflex To HR HPV DNA OFFICE/OUTPATIENT VISIT, EST EXAM OF CERVIX W/SCOPE THIN PREP AND HPV Contraceptive pills for bc URINE TEST OFFICE/OUTPATIENT VISIT, NEW SPECIMEN HANDLING ROUTINE VENIPUNCTURE HIV-1 URINE TEST Female condom PER PM REEVAL EST PAT 65+ YR URINE TEST SPECIMEN HANDLING OFFICE/OUTPATIENT VISIT, EST SPECIMEN HANDLING FLU VACCINE, 3 YRS & >, IM OFFICE/OUTPATIENT VISIT, EST SPECIMEN HANDLING Conraceptive SUPPLIES OFFICE/OUTPATIENT VISIT, EST Condoms NEW FP MEDICAID URINALYSIS, NONAUTO W/SCOPE SPECIMEN HANDLING Condoms Advance Directives Directive Yes / No Effective Date File Name No Information Encounters Encounter Description Practice Location Reason(s) For Visit Diagnoses Date Provider Providers Copied on Encounter [facility], [address] [place] [address], [id number] , [place] tel:[phone] [facility] dn (chief complaint) Encounter for screening for dental disorders 2 Harini José. . 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 [address] [place] [address], [id number], [place]. tel:[phone] OFFICE/OUTPA TIENT VISIT, [facility], [address] [place] [address], [id number] , [place] tel:[phone] [facility] abnormal pap smear (chief complaint) LGSIL on pap smear of cervix 7 [facility]. [address] [place] [address], [id number], [place]. tel:[phone] OFFICE/OUTPA TIENT VISIT, [facility], [address] [place] [address], [id number] , [place] tel:[phone] [facility] STI testing (chief complaint) Encounter for screening for HIVEncounter for STD screeningOther problem related to lifestyle 6 [facility]. [address], [place], [id number], [place]. tel:[phone] PREV VISIT, EST, AGE 18-39 [facility], [address], [place], [id number] , [place] tel: [phone] [facility] annual exam (chief complaint)a bnormal pap smear (chief complaint) Encounter for test, result negativeEncntr for carbon lamp cleaner exam (general) (routine) w/o abn findingsEncounter for STD screeningOther problem related to lifestyle 6 [facility]. [address], [place], [id number], [place]. tel:[phone] [facility], [address], [place], [id number] , [place] tel: [phone] [facility] No Information 6 Germán Roach. [address], [place], [id number], [place]. tel:[phone] OFFICE/OUTPA TIENT VISIT, EST [facility], [address], [place], [id number] , [place] tel: [phone] [facility] repeat pap (chief complaint) Encounter for test, result negativeASCUS on pap smear of cervixEncounter for initial prescription of contraceptive pillsEncounter for STD screeningOther problem related to lifestyle 6 [facility]. [address], [place], [id number], [place]. tel:[phone] [facility], [address], [place], [id number] , [place] tel: [phone] [facility] No Information 5 Germán Roach. [address], [place], [id number], [place]. [phone] [facility], [address], [place], [id number] , [place] tel: [phone] [facility] No Information 5 [facility] DO Alexis. [address], [place], [id number], [place]. [phone] [facility], [address], [place], [id number] , [place] tel: [phone] [facility] Colposcopy Visit (chief complaint)a bnormal pap smear (chief complaint) Contraceptive managementROUTINE DIGITAL SALES EXECUTIVE EXAMINATIONCervic al high risk human papillomavirus (HPV) DNA test positive 5 [facility] DO Alexis. [address], [place], [id number], [place]. tel:[phone] PREV VISIT, [facility], AGE 18-39 [facility], [address], [place], [id number] , [place] tel: [phone] [facility] annual exam (chief complaint) ROUTINE DIGITAL SALES EXECUTIVE EXAMINATIONScreen ing exam for STD 5 [facility] Emma. [address], [place], [id number], [place]. tel:[phone] OFFICE/OUTPA TIENT VISIT, [facility], [address], [place], [id number] , [place] tel: [phone] [facility] wet prep (chief complaint) Trichomonal vulvovaginitis 4 [facility]. [address], [place], [id number], [place]. tel:[phone] OFFICE/OUTPA TIENT VISIT, [facility], [address], [place], [id number] , [place] tel: [phone] [facility] reculture (chief complaint) Contact with or exposure to venereal diseases 4 [facility] DO Alexis. [address], [place], [id number], [place]. [phone] OFFICE/OUTPA TIENT VISIT, [facility], [address], [place], [id number] , [place] tel: [phone] [facility] annual visit (chief complaint) Gynecological Examination 4 Viscmurray Roach. [address], [place], [id number], [place]. tel:[phone] PREV VISIT, EST, AGE 18-39 [facility], [address], [place], [id number] , [place] tel: [phone] [facility] No Information 2 Missael Sumner. [address], [place], [id number], [place]. tel:[phone] OFFICE/OUTPA TIENT VISIT, [facility], [address], [place], [id number] , [place] tel: [phone] [facility] No Information 1 Missael Sumner. [address], [place], [id number], [place]. tel:[phone] [facility], [address], [place], [id number] , [place] tel: [phone] [facility] No Information 1 Germán Roach. [address], [place], [id number], [place]. tel:[phone] OFFICE/OUTPA TIENT VISIT, NEW [facility], [address], [place], [id number] , [place] tel: [phone] [facility] No Information 9 0 Laura Villarreal. [address], [place], [id number], [place]. tel:[phone] PER PM REEVAL EST PAT 65+ YR [facility], [address], [place], [id number] , [place] tel: [phone] [facility] No Information 0 5-201 0 Radha Sanders. [address], [place], [id number]. tel:[phone] OFFICE/OUTPA TIENT VISIT, [facility], [address], [place], [id number] , [place] tel: [phone] [facility] No Information 2 0-200 9 Radha Sanders. [address], [place], [id number]. tel:[phone] [facility], [address], [place], [id number] , [place] tel: [phone] [facility] No Information 2 0-200 9 Cyndii DO Reuben. [address], [place], [id number], [place]. tel:[phone] OFFICE/OUTPA TIENT VISIT, [facility], [address], [place], [id number] , [place] tel: [phone] [facility] No Information 0 8200 9 [facility] Marilyn. [address] [place] [address], [id number]. tel:[phone] OFFICE/OUTPA TIENT VISIT, [facility], [address] [place] [address], [id number] , [place] tel: [phone] [facility] No Information 3200 9 No Information [facility], [address] [place] [address], [id number] , [place] tel: [phone] [facility] No Information 3200 9 No Information Family History Family Member Type Diagnosis Age At Onset Father Problem (finding) Alive and well Sister Problem (finding) Alive and well Brother Problem (finding) Alive and well Mother Problem (finding) Alive and well Immunizations Vaccine Date Status Comments HPV (9-valent) administered Source: New I mmunization Record Influenza virus vaccine, injectable, quadrivalent, split virus, preservative free, 3 years or older Fluarix, Flulaval or Fluzone Quad 8236-1803 administered Source: New Immuniza tion Record Gardasil administered Note: Substitut ed Gardasil due to no Gardasil 9 in stock ; Source: New Immunization Record Gardasil 9 administered Source: New Imm unization Record Payers Payer name Insurance type Covered republican ID Micah morrell(s) D [place] [employer] [address] [employer] [id number] Medicaid Wrap - FQFORMERLY [facility] [id number] Social History Type Description Quantity Date Captured Comments Alcohol Use Details No Caffeine Use Details No Tobacco Use Status Never smoked tobacco 2021 Smoking Status Never smoker Sex Female Sexual Orientation Straight or heterosexual Gender Identity Female Vital Signs Date / Time: Height Weight BMI Pulse Rate Blood Pressure Temperature Respiratory Rate Body Surface Area Head Circumference Head Circ. Percentile Wt./Venkata. Percentile BMI percentile Pulse Ox Inhaled Ox 3:30 PM 95 /min 117/85 mm[Hg] 97.50 F Chief Complaint And Reason For Visit From encounter dated '02/01/2022 15:30'. dn (chief complaint). Description: dn Reason For Referral Reason For Referral No Information Plan Of Treatment Date Type Action Status Goal RLP. Due on due Goal Depression screening. Due on due Goal Tdap. Due on due Goal PRAPARE ASSESSMENT. Due on S ep due Goal Influenza vaccine. Due on Se due Goal Influenza vaccine. Due on due Goal H&P. Due on due Goal RLP. Due on due Goal Tdap. Due on due Goal Tdap. Due on due Goal HPV (2nd) due Goal Td vaccine. Due on 17 due Goal Influenza vaccine. Due on due Goal H&P. Due on due Goal HPV (3rd) due Goal HPV (3rd). Due on due Goal Tdap. Due on due Goal HPV (2nd). Due on due Goal Td vaccine. Due on 16 due Goal H&P. Due on due Goal Tdap. Due on due Goal H&P. Due on due Goal Td vaccine. Due on 16 due Goal HPV (3rd). Due on due Goal HPV (2nd). Due on due Goal Td vaccine. Due on 16 due Goal Tdap. Due on due Goal H&P. Due on due Goal HPV (2nd). Due on due Goal H&P. Due on due Goal Td vaccine. Due on 16 due Goal HPV (1st) due Goal Tdap. Due on due Goal HPV (2nd). Due on due Goal H&P. Due on due Goal Td vaccine. Due on 15 due Goal Depression screening. Due on due Goal HPV (1st). Due on 5 due Goal Tdap. Due on due Goal Tdap. Due on due Goal H&P. Due on due Goal Td vaccine. Due on 15 due Goal HPV (). Due on due Goal Depression screening. Due on due Goal Depression screening. Due on due Goal H&P. Due on due Goal HPV (). Due on due Goal Td vaccine. Due on due Goal Tdap. Due on due Goal Depression screening. Due on due Goal HPV (). Due on due Goal Td vaccine. Due on due Goal H&P. Due on due Goal Tdap. Due on due Goal H&P. Due on due Goal PAP. Due on due History Of Present Illness Encounter Date Complaint History Of Prese nt Illness dn dn annual exam Currently pregna nt: no. : 1. Parity: : 1. The patient states she uses condoms, male for control. Last LMP was 10/11/2016.Negative for Hormone replacement therapy. The patient does not use tobacco. Tobacco cessation has been discussed. She does not drink alcohol. Additional information: Here for annual exam. Currently using condoms to prevent and declines other form of BC. Denies other DIGITAL SALES EXECUTIVE problems at this time. abnormal pap smear Additional in formation: Here for history of abnormal pap. Has history of LGSIL pap Had colposcopy with Dr. Dunlap. STI testing Patient here for STI testing. Annual exam was 12/12/15. She desires cultures today. She also wants HIV and RPR today. She would like blood test for herpes if possible. She has no sores, she just heard alot of people in [place] have it. ANGELIQUE PaulN STI testing (comments) States sh lucio desires a , so she is not currently on BC. Declines Hep B/C, but sandoval desires RPR and HIV. Desires a . has not used BC for over a year and is sexually active several times per week. Has a history of ectopic and had to have one fallopian tube removed. abnormal pap smear Pap findings: ASCUS. Treatments include: colposcopy. Additional information: Patient had ASCUS; HPV+ [id number]; with colposcopy 12/2014. Repap #1 06/2015 was negative. Patient has received all 3 Gardasils. Repap scheduled for 06/2016. --Jean Wright R.N. annual exam Parity: : 1. Patient is contemplating . The patient states she uses none and condoms, male for control. Last LMP was 11/23/2015. Her menses is irregular with spotting flow with a frequency of every 28 days. She does drink alcohol. Additional information: Patient is using condoms sometimes but not presently on control. She states that she doesn't even know if she can get and if it happens, thats okay because she does want children. Patient had some brown spotting lst month but has had a menses mitchell month for past 3 months. Has prior history of very irregular menses, skipping months at a time. Had HIV and RPR 10/2014. Denies need for retesting today. --Jean Wright R.N. repeat pap (comments) Colposcopy showed MADHU I in Dec 2014 after a ASCUS with positive HPV pap. Desires OCPs repeat pap Patient here for a 6 month repeat pap following Colpo 12/2014. 10/2014 Ascus HPV (+). Last Gardasil scheduled 07/28/15. States her last unprotected IC was approx last December. She is looking to start BCP today. Consent signed. States she has irregular menses and would like to regulate them. PT ( -). Scheduled follow up BCP 09/12/15 at 2:30pm. Scheduled update and repeat 6 month pap 12/11/2015 at 1:30pm. Denies any other concerns at this time. - Alcira ZAC abnormal pap smear Pap findings: ASCUS. Treatments include: colposcopy. Risk factors: sexual activity before age 18, sexually active, multiple partners. Associated symptoms include burning. History of: STDs Trich. Additional information: Reports burning cessation happens around her menses. ZAC ACEVEDO. Colposcopy Visit Client presents today for a colposcopy. ASCUS HPV 10/17/14. Education/written material provided, consent obtained. Last menses 11/01/14-11/04/14. Reports irregular menses. Denies any unprotected intercourse in the last 2 weeks. PT given-results negative. Denies any problems/concerns at this time. ZAC Gilbert annual exam Currently pregna nt: no. The patient states she uses none for control. Last LMP was 09/15/2014. Her menses is irregular. She does not take calcium. She does not take Vitamin D. She does not take multivitamins. She does not take Folic acid. The patient does not use tobacco. She does drink alcohol. Additional information: Patient is here for annual exam. Patient desire RPR, HIV and Hep C labs due to relationship with partner. Partner has been rumored to use needles. Patient is due for Pap and Cultures. Patient states that she has burning with urination but only during her menstral cycle. Patient has some bump on pubic bone she'd like to have looked at test is negative.Patient has no other issues at this time. Zac Vallecillo. Functional Status Date Functional Assessmen t No Information Medications Administered Medication Instructions Dosage Effective Dates (start - stop) Status Comments No Drug Therapy Prescribed Instructions Date Instruction Additional Infor mation Encouraged monthly B SE. Recommend calcium 1000mg QD. Encouraged good dietary intake and exercise. Laboratory specimens sent to lab. Patient to call in 2 weeks if desires results. Discssed BC options and patient desires to continue condoms. 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 Patient to call in 1 week for results Related to Encounter for STD screening Pap sent to lab. Pat ient to call in 2 weeks for result. Discussed BC and patient states she is okay if she gets . Recommend PNV daily. If not within 1 year of unprotected IC recommend follow up with TRAVEL [employer]FORMATION CENTER SUPERVISOR for infertility Related to LGSIL on pap smear of cervix Cervical cultures se nt to lab. Patient to call in 1 week for results. Encouraged condoms to prevent STDs. Discussed ovulation, timing of IC and PNV daily. Recommend follow up with [employer] SUPERVISOR physician to discuss infertility if not in 6 months. Patient states understanding Related to Encounter for STD screening HIV and RPR drawn to day and sent to lab. Patient to call in 1 week for results. Discussed HSV in detail and recommend patient RTC if develops a vulvar lesion and then will test for HSV at that time. Patient states understanding Related to Encounter for screening for HIV Cervical cultures se nt to lab. Patient to call in 1 week for results Related to Encounter for STD screening Encouraged monthly B SE. Recommend calcium 1000mg QD. Encouraged good dietary intake and exercise. Laboratory specimens sent to lab. Patient to call in 2 weeks if desires results. DIscussed BC options and declines at this time. States she is okay with getting . 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 Patient to call in 1 week for results Related to Encounter for STD screening Encouraged to start Sprintec with the onset of her next menses. Take 1 pill po QD at HS. If misses a pill take it as soon as she remembers and if she misses two pills take two pills one day and two pills the next day. Encouraged condoms for back up BC and to prevent STDs. Related to Encounter for initial prescription of contraceptive pills History of Acsus pap with positive HPV. Colposcopy showed MADHU I. Pap sent to lab. patient to call for results. Recommend repeat pap in 6 months Related to ASCUS on pap smear of cervix Encouraged monthly B SE. Recommend calcium 1000mg QD. Encouraged good dietary intake and exercise. Pap and cervical cultures sent to lab. Patient to call in 2 weeks if desires results. RPR, Hep C and HIV complete. States she is okay with a . Encouraged PNV daily Related to ROUTINE DIGITAL SALES EXECUTIVE EXAMINATION Assessments Type Assessment Date No Information Patient Care Teams Name Effective Dates (start - stop) Status Members No Information
--- OUTSIDE RECORDS SUMMARY | 2024-12-29 13:00 | XMS_ITS | Encounter Summary ---
Author Organization [facility] Address [address] [place] [address] Care Team Providers Care Spa Attendant Name Role Phone Unavailable Primary Care Provider Unavailabl e Reason for Visit * Reason Comments Well Women Visit Encounter Details Date Type Department Care Team (Late st Contact Info) Description 12/29/2024 1:00 PM EDT Office Visit [facility] [address] [place] [place] [address] Tacho Menendez DO [address] [place] [address] Well woman exam with routine gynecological exam; Weight gain; Insulin resistance Social History Tobacco Use Types Packs/Day Years Used Date Smoking Tobacco: Never Smokeless Tobacco: Never Alcohol Use Standard Drinks/Week Comments Yes 0 (1 standard drink = 0.6 oz pur e alcohol) caffeine: occasional chocolate AUDIT-C Answer Date Recorded Q1: How often do you have a drink containing alc ohol? Monthly or less 05/17/2023 Q2: How many drinks containi ng alcohol do you have on a typical day when you are drinking? 1 or 2 05/17/2023 Q3: How often do you have si x or more drinks on one occasion? Never 05/17/2023 Education Answer Date Recorded What is the highest level of school you have completed or the highest degree you have received? High school graduate 05/17/2023 Comments Unknown Sex and Gender Information Value Date Recorded Sex Assigned at Not on file Legal Sex Female 7:12 PM EDT Gender Identity Not on file Sexual Orientation Not on file Occupation Industry Job Start Date Job End Date [place] Not on file Not on file Not on file documented as of this encounter Last Filed Vital Signs Vital Sign Reading Time Taken Comments Blood Pressure 110/86 12/29/2024 1:23 PM EDT Pulse - - Temperature - - Respiratory Rate - - Oxygen Saturation - - Inhaled Oxygen Concentration - - Weight 159 kg (351 lb 4 oz) 12/29/2024 1:23 PM E DT Height - - Body Mass Index 56.69 08/26/2022 12:00 PM EDT documented in this encounter Plan of Treatment Upcoming Encounters Date Type Department Care Team (Late st Contact Info) Description 02/01/2025 1:30 PM EDT Office Visit [facility] APONTE [address] [place] [phone] Mena Ann PA [address] [place] [address] 01/03/2026 2:00 PM EDT Procedure Visit [facility] [address] [facility] [address] [place] [address] Tacho Menendez DO [address] [place] [address] Scheduled Orders Name Type Priority Associated Diagnoses Orde r Schedule Pap Smear Pathology and Cytology Routine Well woman exam with routine gynecological exam Ordered: 12/29/2024 HPV DNA probe, amplified Microbiology Routine Well woman exam with routine gynecological exam Ordered: 12/29/2024 documented as of this encounter Visit Diagnoses Diagnosis Well woman exam with routine gynecological exam Routine gynecological examination Weight gain Other symptoms concerning nutrition, metabolism, and development Insulin resistance Other abnormal glucose documented in this encounter
--- OUTSIDE RECORDS SUMMARY | 2024-12-29 20:05 | XMS_ITS | Encounter Summary ---
Author Organization [facility] Address [address] [place] [address] [address] Care Team Providers Care Protection Chief Industrial Plant Name Role Phone Unavailable Primary Care Provider Unavailabl e Encounter Details Date Type Department Care Team (Late Contact Info) Description 10/30/2023 Abstract [facility] [address] [place] [phone] Tacho Menendez DO [address] [place], [facility] Social History Tobacco Use Types Packs/Day Years [...] have received? High school graduate 05/17/2023 Comments Yes Sex and Gender Information Value Date Recorded Sex Assigned at Not on file Legal Sex Female 7:12 PM EDT Gender Identity Not on file Sexual Orientation Not on file Occupation Industry Job Start Date Job End Date [place] Not on file Not on file Not on file documented as of this encounter Plan of Treatment Upcoming Encounters Date Type Department Care Team (Late st Contact Info) Description 02/01/2025 1:30 PM EDT Office Visit MAXINE APONTE [address] [place] [address] Mena Ann PA [address] [place] [address] 01/03/2026 2:00 PM EDT Procedure Visit MAXINE APONTE [address] [place] [address] Tacho Menendez DO [address] [place] [address] documented as of this encounter Visit Diagnoses Not on filedocumented in this encounter
--- OUTSIDE RECORDS SUMMARY | 2024-12-29 20:05 | XMS_ITS | Encounter Summary ---
Author Organization [facility] Address [address] [place] [address] Care Team Providers Care Field Crop Farmworker Name Role Phone Unavailable Primary Care Provider Unavailabl e Encounter Details Date Type Department Care Team (Late st Contact Info) Description 10/30/2023 Clinisync Result Encounter [facility] External Department Unsolicited Melissa Menendez DO [address] [place] [address] Social History Tobacco Use Types Packs/Day Years [...] Industry Job Start Date Job End Date [employer] Not on file Not on file Not on file documented as of this encounter Plan of Treatment Upcoming Encounters Date Type Department Care Team (Late st Contact Info) Description 02/01/2025 1:30 PM EDT Office Visit NOM[facility] APONTE [address] [place] [phone] Mena Ann PA [address] [place] [address] 01/03/2026 2:00 PM EDT Procedure Visit [facility] [address] [phone] Melissa Menendez DO [address] [place], [facility] documented as of this encounter Procedures Procedure Name Priority Date/Time Associated Diagnosis Comments US OB TRANSVAGINAL 10/30/2023 4: 24 PM EDT documented in this encounter Results * US OB TRANSVAGINAL (10/30/2023 4:24 PM EDT) Anatomical Region Laterality Modality Other 10/30/2023 4:24 PM EDT Narrative 10/30/2023 4:27 PM EDT [address] [address] Ultrasound Report Signed Patient: Jaleesa Arrieta MR#: [id number] : 1990 Acct:[id number] Age/Sex: 33 / F ADM Date: 10/30/23 Loc: [facility] Attending Dr: Melissa Menendez D.O. Ordering Physician: Melissa Menendez D.O. Date of Service: 10/30/23 Procedure(s): US OB transvaginal Accession Number(s): [id number] cc: Melissa Menendez D.O.; Physician,Non-Staff [facility] [address] [address] Patient Name: JALEESA ARRIETA MRN: [id number] date: 1990 Sex: F Assigned Patient Location: [facility] Current Patient Location: [facility] Accession/Order Number: [id number] Exam Date: 10/30/2023 12:31 Report Date: 10/30/2023 16:24 At the request of: MELISSA MENENDEZ Procedure: US OB transvaginal EXAMINATION: US OB transvaginal HISTORY: MISSED MENSES COMPARISON: No relevant comparison available. FINDINGS: GESTATIONAL SAC: Present and normal appearing. YOLK SAC: Present and normal appearing. POLE: Present and normal appearing. CARDIAC: Present. UTERUS: Normal size and appearance. OVARIES: Right: Normal. Left: Corpus lutein cyst versus simple cyst. CERVIX: 4.0 cm in length and closed. CUL-DE-SAC: Normal. OTHER: None. AGE BY LMP: 9 weeks 4 days DARLENE BY LMP: 05/30/2024 AGE BY US CRL: 8 weeks 4 days DARLENE BY US CRL: 06/06/2024 US/US OB transvaginal IMPRESSION: 1. Single live intrauterine . Electronically authenticated by: FAM VILLAREAL Date: 10/30/2023 16:24 Dictated By: Fam Villareal M.D. Signed By: 10/30/23 1627 DD/ 1624 TD/TT: Auto Tune Up Mechanic: Procedure Note Radiology, Radiologist, MD - 10/30/2023 [place] [address] Ultrasound Report Signed Patient: Jaleesa Arrieta NMR#: [id number] : 1990Acct:[id number] Age/Sex: 33 / FADM Date: 10/30/23 Loc: [facility] Attending Dr: Melissa Menendez D.O. Ordering Physician: Melissa Menendez D.O. Date of Service: 10/30/23 Procedure(s): US OB transvaginal Accession Number(s): [id number] cc: Melissa Menendez D.O.; Physician,Non-Staff [facility] [place] [id number] Patient Name: JALEESA ARRIETA MRN: [id number] date: 1990 Sex: F Assigned Patient Location: [facility] Current Patient Location: [facility] Accession/Order Number: [id number] Exam Date: 10/30/2023 12:31 Report Date: 10/30/2023 16:24 At the request of: MELISSA MENENDEZ Procedure: US OB transvaginal EXAMINATION: US OB transvaginal HISTORY: MISSED MENSES COMPARISON: No relevant comparison available. FINDINGS: GESTATIONAL SAC: Present and normal appearing. YOLK SAC: Present and normal appearing. POLE: Present and normal appearing. CARDIAC: Present. UTERUS: Normal size and appearance. OVARIES: Right: Normal. Left: Corpus lutein cyst versus simple cyst. CERVIX: 4.0 cm in length and closed. CUL-DE-SAC: Normal. OTHER: None. AGE BY LMP: 9 weeks 4 days DARLENE BY LMP: 05/30/2024 AGE BY US CRL: 8 weeks 4 days DARLENE BY US CRL: 06/06/2024 US/US OB transvaginal IMPRESSION: 1. Single live intrauterine . Electronically authenticated by: FAM VILLAREAL Date: 10/30/2023 16:24 Dictated By: Fam Villareal M.D. Signed By:10/30/23 1627 DD/ 1624 TD/TT: Auto Tune Up Mechanic: us Melissa Menendez DO [facility] Final Result documented in this encounter Visit Diagnoses Not on filedocumented in this encounter
--- OUTSIDE RECORDS SUMMARY | 2024-12-29 20:05 | XMS_ITS | Encounter Summary ---
Author Organization [facility] Address [address] [place] [address] [place] [address] Care Team Providers Care Track Subway Repair Supervisor Name Role Phone Unavailable Primary Care Provider Unavailabl e Encounter Details Date Type Department Care Team (Late Contact Info) Description 11/21/2023 Abstract [facility] [address] [place] [phone] Tacho Menendez DO [address] [place], [facility] Social History Tobacco Use Types Packs/Day Years [...] Industry Job Start Date Job End Date [place] Not on file Not on file Not on file documented as of this encounter Plan of Treatment Upcoming Encounters Date Type Department Care Team (Late st Contact Info) Description 02/01/2025 1:30 PM EDT Office Visit MAXINE APONTE [address] [place] [address] Mena Ann PA [address] [place] [address] 01/03/2026 2:00 PM EDT Procedure Visit MAXINE APONTE [address] [place] [address] Tacho Menendez DO [address] [place] [address] documented as of this encounter Visit Diagnoses Not on filedocumented in this encounter
--- OUTSIDE RECORDS SUMMARY | 2024-12-29 20:05 | XMS_ITS | Encounter Summary ---
Author Organization [facility] Address [address] [facility] [place] [address] Care Team Providers Care Sales Data Analyst Name Role Phone Unavailable Primary Care Provider Unavailabl e Encounter Details Date Type Department Care Team (Late st Contact Info) Description 11/03/2023 Abstract [facility] [address] [place] [place] [address] Jenise Rainey LPN [address] [place] [address] [place] [id number] Social History Tobacco Use Types Packs/Day Years [...] Industry Job Start Date Job End Date [place] Not on file Not on file Not on file documented as of this encounter Plan of Treatment Upcoming Encounters Date Type Department Care Team (Late st Contact Info) Description 02/01/2025 1:30 PM EDT Office Visit MAXINE APONTE [address] [place] [address] Mena Ann PA [address] [facility] [address] [place] [address] 01/03/2026 2:00 PM EDT Procedure Visit MAXINE APONTE [address] [place] [address] Tacho Menendez DO [address] [facility] [address] [place] [address] documented as of this encounter Visit Diagnoses Not on filedocumented in this encounter
--- OUTSIDE RECORDS SUMMARY | 2024-12-29 20:06 | XMS_ITS | Encounter Summary ---
Author Organization [facility] Address [address] [facility] [place] [address] Care Team Providers Care Campaign Specialist Name Role Phone Unavailable Primary Care Provider Unavailabl e Encounter Details Date Type Department Care Team (Late st Contact Info) Description 01/20/2024 Clinisync Result Encounter [facility] External Department Unsolicited Mena Urban PA [address] [place] [address] [place] [address] Social History Tobacco Use Types Packs/Day Years [...] Industry Job Start Date Job End Date [employer] Not on file Not on file Not on file documented as of this encounter Miscellaneous Notes * Result Encounter Note - Heather Maravilla LPN - 01/20/2024 4:04 PM EDT On FS documented in this encounter Plan of Treatment Upcoming Encounters Date Type Department Care Team (Late st Contact Info) Description 02/01/2025 1:30 PM EDT Office Visit MAXINE APONTE [address] [facility] [place] [phone] Mena Urban PA [address] [facility] [address] [place], [place] [id number] 01/03/2026 2:00 PM EDT Procedure Visit [facility] [place] APONTE [address] [facility] [place] [address] Tacho Menendez DO [address] [facility] [place] [address] documented as of this encounter Procedures Procedure Name Priority Date/Time Associated Diagnosis Comments US OB ANATOMY 01/20/2024 4:00 PM EDT documented in this encounter Results * US OB ANATOMY (01/20/2024 4:00 PM EDT) Anatomical Region Laterality Modality Other 01/20/2024 4:00 PM EDT Narrative 01/20/2024 4:02 PM EDT The [address] [address] Ultrasound Report Signed Patient: JALEESA ARRIETA MR#: [id number] : 1990 Acct:[id number] Age/Sex: 33 / F ADM Date: 01/20/24 Loc: [facility] Attending Dr: Mena Urban Ordering Physician: Mena Urban Date of Service: 01/20/24 Procedure(s): US OB anatomy Accession Number(s): [id number] cc: Mena Urban; Physician,Non-Staff M.DNikki The [address] [address] Patient Name: JALEESA ARRIETA [facility]:[id number] date: 1990 Sex: F Assigned Patient Location: [facility] Current Patient Location: [facility] Accession/Order Number: [id number] Exam Date: 01/20/2024 12:59 Report Date: 01/20/2024 16:00 At the request of: MENA URBAN Procedure: US OB anatomy EXAMINATION: US OB anatomy, US OB cervical length HISTORY: ANATOMY COMPARISON: No relevant comparison available. TECHNIQUE: Transabdominal sonographic examination was performed for obstetrical and evaluation. FINDINGS: Number: 1 Heart Rate: 150 bpm H.B. /min Amniotic Fluid Volume: Subjectively normal Placental Location: ANTER/FUND with lower margin 9.6 cm from os. Cervix Length: 3.91 cm , closed. ANATOMY: Normal Structures -cerebellum, choroid plexus, cisterna magna, lateral cerebral ventricles, orbits, midline falx, hard palate, four-chamber heart, RVOT, LVOT, stomach, kidneys, bladder, umbilical cord insertion into abdomen, three-vessel cord, cervical spine, thoracic spine, lumbar spine, sacral spine, right upper extremity, left upper extremity, right lower extremity, left lower extremity. SUBOPTIMALLY SEEN: None ABNORMALITIES: None BIOMETRY: BPD: 4.36 cm; 19 weeks 1 day; 11 % HC: 17.47 cm; 20 weeks 0 days; 28.50 % AC: 14.74 cm; 20 weeks 0 days; 35.10 % FL: 3.46 cm; 20 weeks 6 days; 64 % EFW:303.77 g; 48.20 % FL/AC: 23.47 FL/BPD: 79.36 HC/AC: 1.19 GESTATIONAL AGE: Age by EDC: 20 weeks 2 days Age by current US: 20 weeks 0 days DARLENE by current US: 2024-06-08 DARLENE by EDC: 2024-06-06 US/US OB anatomy IMPRESSION: 1. Single live intrauterine with growth detailed above. Electronically authenticated by: FAM VILLAREAL Date: 01/20/2024 16:00 Dictated By: Fam Villareal M.D. Signed By: 01/20/24 1602 DD/ 1600 TD/TT: Spout Liner Helper: Procedure Note Radiology, Radiologist, - 01/20/[address] [address] Ultrasound Report Signed Patient: JALEESA ARRIETA NMR#: [id number] : 1990Acct:[id number] Age/Sex: 33 / FADM Date: 01/20/24 Loc: [facility] Attending Dr: Mena Urban Ordering Physician: Mena Urban Date of Service: 01/20/24 Procedure(s): US OB anatomy Accession Number(s): [id number] cc: Mena Urban; Physician,Non-Staff M.D. The [address] [address] Patient Name: JALEESA ARRIETA MRN: [id number] date: 1990 Sex: F Assigned Patient Location: [facility] Current Patient Location: [facility] Accession/Order Number: [id number] Exam Date: 01/20/2024 12:59 Report Date: 01/20/2024 16:00 At the request of: MENA URBAN Procedure: US OB anatomy EXAMINATION: US OB anatomy, US OB cervical length HISTORY: ANATOMY COMPARISON: No relevant comparison available. TECHNIQUE: Transabdominal sonographic examination was performed for obstetrical and evaluation. FINDINGS: Number: 1 Heart Rate: 150 bpm H.B. /min Amniotic Fluid Volume: Subjectively normal Placental Location: ANTER/FUND with lower margin 9.6 cm from os. Cervix Length: 3.91 cm , closed. ANATOMY: Normal Structures -cerebellum, choroid plexus, cisterna magna, lateral cerebral ventricles, orbits, midline falx, hard palate, four-chamberheart, RVOT, LVOT, stomach, kidneys, bladder, umbilical cord insertion intoabdomen, three-vessel cord, cervical spine, thoracic spine, lumbar spine, sacralspine, right upper extremity, left upper extremity, right lower extremity, leftlower extremity. SUBOPTIMALLY SEEN: None ABNORMALITIES: None BIOMETRY: BPD: 4.36 cm; 19 weeks 1 day; 11 % HC: 17.47 cm; 20 weeks 0 days; 28.50 % AC: 14.74 cm; 20 weeks 0 days; 35.10 % FL: 3.46 cm; 20 weeks 6 days; 64 % EFW:303.77 g; 48.20 % FL/AC: 23.47 FL/BPD: 79.36 HC/AC: 1.19 GESTATIONAL AGE: Age by EDC: 20 weeks 2 days Age by current US: 20 weeks 0 days DARLENE by current US: 2024-06-08 DARLENE by EDC: 2024-06-06 US/US OB anatomy IMPRESSION: 1. Single live intrauterine with growth detailed above. Electronically authenticated by: FAM VILLAREAL Date: 01/20/2024 16:00 Dictated By: Fam Villareal M.D. Signed By:01/20/24 1602 DD/ 1600 TD/TT: Spout Liner Helper: Mena [facility] Final Result documented in this encounter Visit Diagnoses Not on filedocumented in this encounter
--- OUTSIDE RECORDS SUMMARY | 2024-12-29 20:06 | XMS_ITS | Encounter Summary ---
Author Organization [facility] Address [address] [facility] [place] [address] Care Team Providers Care Inshore Undersea Warfare Officer Name Role Phone Unavailable Primary Care Provider Unavailabl e Encounter Details Date Type Department Care Team (Late st Contact Info) Description 01/20/2024 Abstract [facility] [address] [employer] [place] [phone] Heather Maravilla LPN [address] [employer] [place] [phone] Social History Tobacco Use Types Packs/Day Years [...] Industry Job Start Date Job End Date [employer] Not on file Not on file Not on file documented as of this encounter Plan of Treatment Upcoming Encounters Date Type Department Care Team (Late st Contact Info) Description 02/01/2025 1:30 PM EDT Office Visit MAXINE APONTE [address] [facility] [place] [address] Mena Ann PA [address] [facility] [address] 01/03/2026 2:00 PM EDT Procedure Visit MAXINE APONTE [address] [facility] [place] [address] Tacho Menendez DO [address] [facility] [address] documented as of this encounter Visit Diagnoses Not on filedocumented in this encounter
--- OUTSIDE RECORDS SUMMARY | 2024-12-29 20:06 | XMS_ITS | Encounter Summary ---
Author Organization [facility] Address [address] [facility] [place] [address] Care Team Providers Care Art Glass Designer Name Role Phone Unavailable Primary Care Provider Unavailabl e Encounter Details Date Type Department Care Team (Late st Contact Info) Description 04/16/2024 Clinisync Result Encounter [facility] External Department Unsolicited Mena Urban PA [address] [place] [address] Social History Tobacco Use Types Packs/Day Years [...] Industry Job Start Date Job End Date [place] Not on file Not on file Not on file documented as of this encounter Plan of Treatment Upcoming Encounters Date Type Department Care Team (Late st Contact Info) Description 02/01/2025 1:30 PM EDT Office Visit [facility]BG[facility] [address] [place] [phone] Mena Urban PA [address] [facility] [address] [place], [place] [address] 01/03/2026 2:00 PM EDT Procedure Visit [facility] [place] [facility] [address] [facility] [place] [phone] Tacho Menendez DO [address] [facility] [address] [place], [place] [address] documented as of this encounter Procedures Procedure Name Priority Date/Time Associated Diagnosis Comments US OB BPP W NON-STRESS 04/16/2024 4:24 PM EST documented in this encounter Results * US OB BPP W NON-STRESS (04/16/2024 4:24 PM EST) Anatomical Region Laterality Modality Other 04/16/2024 4:24 PM EST Narrative 04/16/2024 4:27 PM EST The [address] [address] Ultrasound Report Signed Patient: JALEESA RARIETA MR#: [id number] : 1990 Acct:[id number] Age/Sex: 34 / F ADM Date: 04/16/24 Loc: [facility] 250-[address]: Mena Urban Ordering Physician: Mena Urban Date of Service: 04/16/24 Procedure(s): US OB BPP w non-stress Accession Number(s): [id number] cc: Mena Urban; Physician,Non-Staff M.D. The [address] [address] Patient Name: JALEESA ARRIETA MRN: [id number] date: 1990 Sex: F Assigned Patient Location: [facility] Current Patient Location: [facility] Accession/Order Number: [id number] Exam Date: 04/16/2024 15:22 Report Date: 04/16/2024 16:24 At the request of: MENA URBAN Procedure: US OB BPP w non-stress EXAMINATION: US OB BPP w non-stress HISTORY:H/O PREMATURE DELIVERY Z87.51 COMPARISON: Ultrasound OB growth 03/22/2024 TECHNIQUE: Ultrasound biophysical profile was performed in the radiology department. BREATHING MOVEMENTS: 2 GROSS BODY MOVEMENTS: 2 TONE: 2 QUALITATIVE AMNIOTIC FLUID VOLUME: 2 PRESENTATION: CEPHALIC HEART RATE: 153.41 bpm AMNIOTIC FLUID VOLUME: 11.38 cm GESTATIONAL AGE: 32 weeks 5 days US/US OB BPP w non-stress IMPRESSION: Total biophysical profile score: 8 Electronically authenticated by: ADOLPH VILLAREAL Date: 04/16/2024 16:24 Dictated By: Adolph Villareal M.D. Signed By: 04/16/241626 DD/ 23 TD/TT: Supervisor Cellars: Procedure Note Radiology, Radiologist, MD - 04/16/2024 [place] [address] Ultrasound Report Signed Patient: JALEESA ARRIETA NMR#: [id number] : 1990Acct:[id number] Age/Sex: 34 / FADM Date: 04/16/24 Loc: [place] [address]: Mena Urban Ordering Physician: Mena Urban Date of Service: 04/16/24 Procedure(s): US OB BPP w non-stress Accession Number(s): [id number] cc: Mena Urban; Physician,Non-Staff MEsha The [place] [address] Patient Name: JALEESA ARRIETA MRN: [id number] date: 1990 Sex: F Assigned Patient Location: [facility] Current Patient Location: [facility] Accession/Order Number: [id number] Exam Date: 04/16/2024 15:22 Report Date: 04/16/2024 16:24 At the request of: MENA URBAN Procedure: US OB BPP w non-stress EXAMINATION: US OB BPP w non-stress HISTORY:H/O PREMATURE DELIVERY Z87.51 COMPARISON: Ultrasound OB growth 03/22/2024 TECHNIQUE: Ultrasound biophysical profile was performed in the radiology department. BREATHING MOVEMENTS: 2 GROSS BODY MOVEMENTS: 2 TONE: 2 QUALITATIVE AMNIOTIC FLUID VOLUME: 2 PRESENTATION: CEPHALIC HEART RATE: 153.41 bpm AMNIOTIC FLUID VOLUME: 11.38 cm GESTATIONAL AGE: 32 weeks 5 days US/US OB BPP w non-stress IMPRESSION: Total biophysical profile score: 8 Electronically authenticated by: ADOLPH VILLAREAL Date: 04/16/2024 16:24 Dictated By: Adolph Villareal M.D. Signed By:04/16/24 1627 DD/ 23 TD/TT: Supervisor Cellars: us Mena [facility] Final Result documented in this encounter Visit Diagnoses Not on filedocumented in this encounter
--- OUTSIDE RECORDS SUMMARY | 2024-12-29 20:06 | XMS_ITS | Encounter Summary ---
Author Organization [facility] Address [address] [place] [address] Care Team Providers Care Cleaning Supervisor Name Role Phone Unavailable Primary Care Provider Unavailabl e Source Comments In the event this information is protected by the Federal Confidentiality of Alcohol and Drug AbusePatient Records regulations: The Federal rules restrict any use of the information to criminally investigate or prosecute any alcohol or drug abuse patient.[facility] Encounter Details Date Type Department Care Team (Late st Contact Info) Description 09/01/2023 Patient Msg General Surgery BMI PSYL [address] [place] [address] Latonia Beltrán, PhD [address] [place] [address] missed appointment today Social History Tobacco Use Types Packs/Day Years Used Date Smoking Tobacco: Never Smokeless Tobacco: Never Alcohol Use Standard Drinks/Week Comments Yes 0 (1 standard drink = 0.6 oz pur e alcohol) occ Area Deprivation Index Answer Date James rded National Score (1-100), lower number is lower ri sk 86 08/20/2023 State Score (1-10), lower number is lower risk 8 08/20/2023 Data from: https://www.neighborhoodatlas.[facility]/. Last address used for calculation [address] 08/20/2023 Comments Unknown Sex and Gender Information Value Date Recorded Sex Assigned at Female 08/26/2023 4:19 AM EDT Legal Sex Female 4:17 PM EST Gender Identity Female 08/26/2023 4:19 AM EDT Sexual Orientation Straight 08/26/2023 4: 19 AM EDT documented as of this encounter Plan of Treatment Not on file documented as of this encounter Visit Diagnoses Not on filedocumented in this encounter
--- OUTSIDE RECORDS SUMMARY | 2024-12-29 20:06 | XMS_ITS | Encounter Summary ---
Author Organization [facility] Address [address] [place] [address] Care Team Providers Care Prism Inspector Name Role Phone Unavailable Primary Care Provider Unavailabl e Source Comments In the event this information is protected by the Federal Confidentiality of Alcohol and Drug AbusePatient Records regulations: The Federal rules restrict any use of the information to criminally investigate or prosecute any alcohol or drug abuse patient.[facility] Encounter Details Date Type Department Care Team (Late st Contact Info) Description 07/23/2024 Patient Msg General Surgery [address] [place] [address] Provider, [facility] Join the weight loss study: Surgery vs Medication. Social History Tobacco Use Types Packs/Day Years Used Date Smoking Tobacco: Never Smokeless Tobacco: Never Alcohol Use Standard Drinks/Week Comments Yes 0 (1 standard drink = 0.6 oz pur e alcohol) occ PHQ-2 Answer Date Recorded PHQ-2 score 2 10/09/2023 Area Deprivation Index Answer Date James rded National Score (1-100), lower number is lower ri sk 86 08/20/2023 State Score (1-10), lower number is lower risk 8 08/20/2023 Data from: https://www.neighborhoodatlas.medicine.[facility].edu/. Last address used for calculation [address] [facility] [facility] 08/20/2023 Comments Unknown Sex and Gender [...]
--- OUTSIDE RECORDS SUMMARY | 2024-12-29 20:06 | XMS_ITS | Encounter Summary ---
Author Organization [facility] Address [address] [facility] [place] [address] Care Team Providers Care Student Financial Aid Manager Name Role Phone Unavailable Primary Care Provider Unavailabl e Encounter Details Date Type Department Care Team (Late Contact Info) Description 03/31/2024 Abstract [facility] [address] [place] [place] [phone] Tacho Menendez DO [address] [facility] [address] [place], [facility] Social History Tobacco Use Types Packs/Day Years [...] Industry Job Start Date Job End Date [place] Not on file Not on file Not on file documented as of this encounter Plan of Treatment Upcoming Encounters Date Type Department Care Team (Late st Contact Info) Description 02/01/2025 1:30 PM EDT Office Visit MAXINE APONTE [address] [facility] [place] [address] Mena Ann PA [address] [facility] [place] [address] 01/03/2026 2:00 PM EDT Procedure Visit MAXINE APONTE [address] [place] [address] Tacho Menendez DO [address] [facility] [place] [address] documented as of this encounter Visit Diagnoses Not on filedocumented in this encounter
--- OUTSIDE RECORDS SUMMARY | 2024-12-29 20:06 | XMS_ITS | Encounter Summary ---
Author Organization [facility] Address [address] [facility] [place] [address] Care Team Providers Care At&T Retailer Sales Consultant Name Role Phone Unavailable Primary Care Provider Unavailabl e Encounter Details Date Type Department Care Team (Late st Contact Info) Description 04/26/2024 Clinisync Result Encounter [facility] External Department Unsolicited Mena Urban PA [address] [place] [address] Social History Tobacco Use Types Packs/Day Years [...] Industry Job Start Date Job End Date [place] Not on file Not on file Not on file documented as of this encounter Plan of Treatment Upcoming Encounters Date Type Department Care Team (Late st Contact Info) Description 02/01/2025 1:30 PM EDT Office Visit [facility] OBG[facility] [address] [place] [phone] Mena Urban PA [address] [facility] [address] [place], [place] [address] 01/03/2026 2:00 PM EDT Procedure Visit [facility] [place] [facility] [address] [facility] [place] [address] Tacho Menendez DO [address] [facility] [address] [place], [place] [address] documented as of this encounter Procedures Procedure Name Priority Date/Time Associated Diagnosis Comments US OB BPP W NON-STRESS 04/26/2024 7:56 AM EST documented in this encounter Results * US OB BPP W NON-STRESS (04/26/2024 7:56 AM EST) Anatomical Region Laterality Modality Other 04/26/2024 7:56 AM EST Narrative 04/26/2024 7:58 AM EST The [address] [address] Ultrasound Report Signed Patient: JALEESA ARRIETA MR#: [id number] : 1990 Acct:[id number] Age/Sex: 34 / F ADM Date: 04/24/24 Loc: US Attending Dr: Mena Urban Ordering Physician: Mena Urban Date of Service: 04/24/24 Procedure(s): US OB BPP w non-stress Accession Number(s): [id number] cc: Mena Urban; Physician,Non-Staff M.DNikki The [address] [address] Patient Name: JALEESA ARRIETA MRN: [id number] date: 1990 Sex: F Assigned Patient Location: [facility] Current Patient Location: Accession/Order Number: [id number] Exam Date: 04/24/2024 14:25 Report Date: 04/26/2024 07:56 At the request of: MENA URBAN Procedure: US OB BPP w non-stress EXAMINATION: US OB BPP w non-stress HISTORY: HX PREMATURE DELIVERY Z87.51 COMPARISON: No relevant comparison available. TECHNIQUE: Ultrasound biophysical profile was performed in the radiology department. non-reactive stress testing was performed by nursing staff in the birthing center. FINDINGS: BREATHING MOVEMENTS: 2 GROSS BODY MOVEMENTS: 2 TONE: 2 QUALITATIVE AMNIOTIC FLUID VOLUME: 2 PRESENTATION: CEPHALIC HEART RATE: 152.54 bpm AMNIOTIC FLUID VOLUME: 11.6 cm, largest fluid pocket 3.7 cm GESTATIONAL AGE: 33 weeks 6 days US/US OB BPP w non-stress IMPRESSION: Total biophysical profile score: 8 Electronically authenticated by: GEORGETTE LIANG Date: 04/26/2024 07:56 Dictated By: Georgette Liang M.D. Signed By: 04/26/24 0758 DD/ 0756 TD/TT: Hoe Worker: Procedure Note Radiology, Radiologist, MD - 04/26/2024 [place] [address] Ultrasound Report Signed Patient: JALEESA ARRIETA NMR#: [id number] : 1990Acct:[id number] Age/Sex: 34 / FADM Date: 04/24/24 Loc: US Attending Dr: Mena Urban Ordering Physician: Mena Urban Date of Service: 04/24/24 Procedure(s): US OB BPP w non-stress Accession Number(s): [id number] cc: Mena Urban; Physician,Non-Staff [place] The [address] [address] Patient Name: JALEESA ARRIETA MRN: [id number] date: 1990 Sex: F Assigned Patient Location: [facility] Current Patient Location: Accession/Order Number: [id number] Exam Date: 04/24/2024 14:25 Report Date: 04/26/2024 07:56 At the request of: MENA URBAN Procedure: US OB BPP w non-stress EXAMINATION: US OB BPP w non-stress HISTORY: HX PREMATURE DELIVERY Z87.51 COMPARISON: No relevant comparison available. TECHNIQUE: Ultrasound biophysical profile was performed in the radiology department. non-reactive stress testing was performed by nursingstaff in the birthing center. FINDINGS: BREATHING MOVEMENTS: 2 GROSS BODY MOVEMENTS: 2 TONE: 2 QUALITATIVE AMNIOTIC FLUID VOLUME: 2 PRESENTATION: CEPHALIC HEART RATE: 152.54 bpm AMNIOTIC FLUID VOLUME: 11.6 cm, largest fluid pocket 3.7 cm GESTATIONAL AGE: 33 weeks 6 days US/US OB BPP w non-stress IMPRESSION: Total biophysical profile score: 8 Electronically authenticated by: GEORGETTE LIANG Date: 04/26/2024 07:56 Dictated By: Georgette Liang M.D. Signed By:04/26/24 0758 DD/ 0756 TD/TT: Hoe Worker: us Mena [facility] Final Result documented in this encounter Visit Diagnoses Not on filedocumented in this encounter
--- OUTSIDE RECORDS SUMMARY | 2024-12-29 20:06 | XMS_ITS | Encounter Summary ---
Author Organization [facility] Address [address] [facility] [place] [address] Care Team Providers Care Museum Curator Name Role Phone Unavailable Primary Care Provider Unavailabl e Encounter Details Date Type Department Care Team (Late Contact Info) Description 12/23/2023 Abstract MAXINE APONTE [address] [employer] [place] [address] Emma Mcbride LPN Social History Tobacco Use Types Packs/Day Years [...] Industry Job Start Date Job End Date [employer] Not on file Not on file Not on file documented as of this encounter Plan of Treatment Upcoming Encounters Date Type Department Care Team (Late Contact Info) Description 02/01/2025 1:30 PM EDT Office Visit MAXINE APONTE [address] [place] [address] Mena Ann PA [address] [facility] [place] [address] 01/03/2026 2:00 PM EDT Procedure Visit [facility] [place] [facility] [address] [facility] [place] [address] Tacho Menendez DO [address] [facility] [place] [address] documented as of this encounter Visit Diagnoses Not on filedocumented in this encounter
--- OUTSIDE RECORDS SUMMARY | 2024-12-29 20:06 | XMS_ITS | Encounter Summary ---
Author Organization [facility] Address [address] [place] [address] Care Team Providers Care Employment Assistant Name Role Phone Unavailable Primary Care Provider Unavailabl e Source Comments In the event this information is protected by the Federal Confidentiality of Alcohol and Drug AbusePatient Records regulations: The Federal rules restrict any use of the information to criminally investigate or prosecute any alcohol or drug abuse patient.[facility] Encounter Details Date Type Department Care Team (Late st Contact Info) Description 09/17/2023 Patient Msg Nutrition Therapy [address] [id number] Provider, [facility] Nutrition Social History Tobacco Use Types Packs/Day Years Used Date Smoking Tobacco: Never Smokeless Tobacco: Never Alcohol Use Standard Drinks/Week Comments Yes 0 (1 standard drink = 0.6 oz pur e alcohol) occ Area Deprivation Index Answer Date James rded National Score (1-100), lower number is lower ri sk 86 08/20/2023 State Score (1-10), lower number is lower risk 8 08/20/2023 Data from: https://www.neighborhoodatlas.medicine.[facility].edu/. Last address used for calculation [address] [facility] [facility] 08/20/2023 Comments Unknown Sex and [...]
--- OUTSIDE RECORDS SUMMARY | 2024-12-29 20:06 | XMS_ITS | Encounter Summary ---
Author Organization [facility] Address [address] [facility] [place] [address] Care Team Providers Care Bellows Assembler Name Role Phone Unavailable Primary Care Provider Unavailabl e Encounter Details Date Type Department Care Team (Late st Contact Info) Description 04/27/2024 Clinisync Result Encounter [facility] External Department Unsolicited Melissa Menendez DO [address] [place] [address] Social History Tobacco Use Types Packs/Day Years [...] Industry Job Start Date Job End Date [place] Not on file Not on file Not on file documented as of this encounter Plan of Treatment Upcoming Encounters Date Type Department Care Team (Late st Contact Info) Description 02/01/2025 1:30 PM EDT Office Visit MAXINE APONTE [address] [facility] [place] [phone] Mena Ann PA [address] [facility] [address] [place], [facility] 01/03/2026 2:00 PM EDT Procedure Visit [facility] [place] [facility] [address] [facility] [place] [address] Melissa Menendez DO [address] [facility] [address] Karen [place], [place] [address] documented as of this encounter Procedures Procedure Name Priority Date/Time Associated Diagnosis Comments US OB GROWTH 04/27/2024 1:34 PM EST documented in this encounter Results * US OB GROWTH (04/27/2024 1:34 PM EST) Anatomical Region Laterality Modality Other 04/27/2024 1:34 PM EST Narrative 04/27/2024 1:37 PM EST The [address] [address] Ultrasound Report Signed Patient: JALEESA ARRIETA MR#: [id number] : 1990 Acct:[id number] Age/Sex: 34 / F ADM Date: 04/27/24 Loc: [facility] Attending Dr: Melissa Menendez D.O. Ordering Physician: Melissa Menendez D.O. Date of Service: 04/27/24 Procedure(s): US OB growth Accession Number(s): [id number] cc: Melissa Menendez D.O.; Physician,Non-Staff MEsha The [address] [address] Patient Name: JALEESA ARRIETA MRN: [id number] date: 1990 Sex: F Assigned Patient Location: [facility] Current Patient Location: [facility] Accession/Order Number: [id number] Exam Date: 04/27/2024 12:53 Report Date: 04/27/2024 13:34 At the request of: MELISSA MENENDEZ Procedure: US OB growth EXAMINATION: US OB growth HISTORY: THYROID DISEASE COMPARISON: No relevant comparison available. FINDINGS: Heart Rate: 153 bpm Amniotic Fluid Volume: 9.7 cm, largest fluid pocket 3.2 cm Number: 1 Position: Cephalic presentation, longitudinal lie BIOMETRY: BPD: 8.09 cm; 32 weeks 3 days; 7.70 % HC: 30.95 cm; 34 weeks 4 days; 21.60 % AC: 29.32 cm; 33 weeks 2 days; 26.30 % FL: 7.25 cm; 37 weeks 1 day; 95.80 % EFW: 2064.58 g; 49.40 %, 5 lbs. 6 oz. FL/AC: 24.73 FL/BPD: 89.62 HC/AC: 1.06 GESTATIONAL AGE: Age by EDC: 34 weeks 2 days DARLENE by EDC: 2024-06-06 Age by US: 34 weeks 3 days DARLENE by US: 2024-06-05 US/US OB growth IMPRESSION: Femur length at the 96th percentile, otherwise normal interval growth Electronically authenticated by: GEORGETTE LIANG Date: 04/27/2024 13:34 Dictated By: Georgette Liang M.D. Signed By: 04/27/241336 DD/ 33 TD/TT: Sheet Rocker: Procedure Note Radiology, Radiologist, MD - 04/27/2024 [place] [address] Ultrasound Report Signed Patient: JALEESA ARRIETA [facility]#: [id number] : 1990Acct:[id number] Age/Sex: 34 / FADM Date: 04/27/24 Loc: [facility] Attending Dr: Melissa Menendez D.O. Ordering Physician: Melissa Menendez D.O. Date of Service: 04/27/24 Procedure(s): US OB growth Accession Number(s): [id number] cc: Melissa Menendez D.O.; Physician,Non-Staff MEsha The [place] [id number] Patient Name: JALEESA ARRIETA MRN: [id number] date: 1990 Sex: F Assigned Patient Location: [facility] Current Patient Location: [facility] Accession/Order Number: [id number] Exam Date: 04/27/2024 12:53 Report Date: 04/27/2024 13:34 At the request of: MELISSA MENENDEZ Procedure: US OB growth EXAMINATION: US OB growth HISTORY: THYROID DISEASE COMPARISON: No relevant comparison available. FINDINGS: Heart Rate: 153 bpm Amniotic Fluid Volume: 9.7 cm, largest fluid pocket 3.2 cm Number: 1 Position: Cephalic presentation, longitudinal lie BIOMETRY: BPD: 8.09 cm; 32 weeks 3 days; 7.70 % HC: 30.95 cm; 34 weeks 4 days; 21.60 % AC: 29.32 cm; 33 weeks 2 days; 26.30 % FL: 7.25 cm; 37 weeks 1 day; 95.80 % EFW: 2064.58 g; 49.40 %, 5 lbs. 6 oz. FL/AC: 24.73 FL/BPD: 89.62 HC/AC: 1.06 GESTATIONAL AGE: Age by EDC: 34 weeks 2 days DARLENE by EDC: 2024-06-06 Age by US: 34 weeks 3 days DARLENE by US: 2024-06-05 US/US OB growth IMPRESSION: Femur length at the 96th percentile, otherwise normal interval growth Electronically authenticated by: GEORGETTE LIANG Date: 04/27/2024 13:34 Dictated By: Georgette Liang M.D. Signed By:04/27/24 1337 DD/ 33 TD/TT: Sheet Rocker: us Melissa Menendez DO [facility] Final Result documented in this encounter Visit Diagnoses Not on filedocumented in this encounter
--- OUTSIDE RECORDS SUMMARY | 2024-12-29 20:06 | XMS_ITS | Encounter Summary ---
Author Organization [facility] Address [address] [place] [address] Care Team Providers Care Dirt Bike Mechanic Name Role Phone Unavailable Primary Care Provider Unavailabl e Source Comments In the event this information is protected by the Federal Confidentiality of Alcohol and Drug AbusePatient Records regulations: The Federal rules restrict any use of the information to criminally investigate or prosecute any alcohol or drug abuse patient.[facility] Encounter Details Date Type Department Care Team (Late st Contact Info) Description 08/21/2023 Patient Ms [facility] [place] [address] [place], [place] [id number] Provider, [facility] Bariatric Testing needed Social History Tobacco Use Types Packs/Day Years Used Date Smoking Tobacco: Never Smokeless Tobacco: Never Alcohol Use Standard Drinks/Week Comments Yes 0 (1 standard drink = 0.6 oz pur e alcohol) occ Area Deprivation Index Answer Date James rded National Score (1-100), lower number is lower ri sk 86 08/20/2023 State Score (1-10), lower number is lower risk 8 08/20/2023 Data from: https://www.neighborhoodatlas.medicine.[facility].edu/. Last address used for calculation [address] 08/20/2023 Comments Unknown Sex and [...]
--- OUTSIDE RECORDS SUMMARY | 2024-12-29 20:06 | XMS_ITS | Encounter Summary ---
Author Organization [facility] Address [address] [facility] [place] [address] Care Team Providers Care Pen And Pencil Repairer Name Role Phone Unavailable Primary Care Provider Unavailabl e Encounter Details Date Type Department Care Team (Late st Contact Info) Description 01/20/2024 Clinisync Result Encounter [facility]S External Department Unsolicited Mena Urban PA [address] [place] [address] [place] [address] Social History Tobacco Use Types Packs/Day Years [...] Industry Job Start Date Job End Date [employer] Not on file Not on file Not on file documented as of this encounter Miscellaneous Notes * Result Encounter Note - Heather Maarvilla LPN - 01/20/2024 4:04 PM EDT On FS documented in this encounter Plan of Treatment Upcoming Encounters Date Type Department Care Team (Late st Contact Info) Description 02/01/2025 1:30 PM EDT Office Visit NOMKris APONTE [address] [place] [phone] Mena Urban PA [address] [facility] [address] [place], [place] [id number] 01/03/2026 2:00 PM EDT Procedure Visit [facility] [place] APONTE [address] [place] [address] Tacho Menendez DO [address] [facility] [address] Karen [place], [place] [phone] documented as of this encounter Procedures Procedure Name Priority Date/Time Associated Diagnosis Comments US OB CERVICAL LENGTH 01/20/2024 4:00 PM EDT documented in this encounter Results * US OB CERVICAL LENGTH (01/20/2024 4:00 PM EDT) Anatomical Region Laterality Modality Other 01/20/2024 4:00 PM EDT Narrative 01/20/2024 4:02 PM EDT The [address] [address] Ultrasound Report Signed Patient: JALEESA ARRIETA MR#: [id number] : 1990 Acct:[id number] Age/Sex: 33 / F ADM Date: 01/20/24 Loc: NOMS Attending Dr: Mena Urban Ordering Physician: Mena Urban Date of Service: 01/20/24 Procedure(s): US OB cervical length Accession Number(s): [id number] cc: Mena Urban; Physician,Non-Staff M.D. The [address] [address] Patient Name: JALEESA ARRIETA MRN: [facility]:[id number] date: 1990 Sex: F Assigned Patient Location: [facility] Current Patient Location: [facility] Accession/Order Number: [id number] Exam Date: 01/20/2024 12:59 Report Date: 01/20/2024 16:00 At the request of: MENA URBAN Procedure: US OB cervical length EXAMINATION: US OB anatomy, US OB cervical [...] 2024-06-08 DARLENE by EDC: 2024-06-06 US/US OB cervical length IMPRESSION: 1. Single live intrauterine with growth detailed above. Electronically authenticated by: FAM VILLAREAL Date: 01/20/2024 16:00 Dictated By: Fam Villareal M.D. Signed By: 01/20/24 1602 DD/ 1600 TD/TT: Pipeline Welder: Procedure Note Radiology, Radiologist, - 01/20/[address] [address] Ultrasound Report Signed Patient: JALEESA ARRIETA NMR#: [id number] : 1990Acct:[id number] Age/Sex: 33 / FADM Date: 01/20/24 Loc: [facility]OM[facility] Attending Dr: Mena Urban Ordering Physician: Mena Urban Date of Service: 01/20/24 Procedure(s): US OB cervical length Accession Number(s): [id number] cc: Mena Urban; Physician,Non-Staff M.D. The [address] [address] Patient Name: JALEESA ARRIETA MRN: [id number] date: 1990 Sex: F Assigned Patient Location: [facility] Current Patient Location: [facility] Accession/Order Number: [id number] Exam Date: 01/20/2024 12:59 Report Date: 01/20/2024 16:00 At the request of: MENA URBAN Procedure: US OB cervical length EXAMINATION: US OB anatomy, US OB cervical [...] 2024-06-08 DARLENE by EDC: 2024-06-06 US/US OB cervical length IMPRESSION: 1. Single live intrauterine with growth detailed above. Electronically authenticated by: FAM VILLAREAL Date: 01/20/2024 16:00 Dictated By: Fam Villareal M.D. Signed By:01/20/24 1602 DD/ 1600 TD/TT: Pipeline Welder: us Mena [facility]O [facility] Final Result documented in this encounter Visit Diagnoses Not on filedocumented in this encounter
--- OUTSIDE RECORDS SUMMARY | 2024-12-29 20:06 | XMS_ITS | Encounter Summary ---
Author Organization [facility] Address [address] [place] [facility] [place] [address] Care Team Providers Care Fingerprinter Name Role Phone Unavailable Primary Care Provider Unavailabl e Encounter Details Date Type Department Care Team (Late st Contact Info) Description 11/26/2023 Abstract [facility] [place] O[facility] [address] [place] [address] Jenise Rainey LPN [address] [facility] [address] [place] [id number] Social History Tobacco Use Types Packs/Day Years [...] Industry Job Start Date Job End Date [place] Not on file Not on file Not on file documented as of this encounter Plan of Treatment Upcoming Encounters Date Type Department Care Team (Late st Contact Info) Description 02/01/2025 1:30 PM EDT Office Visit MAXINE APONTE [address] [facility] [place] [address] Mena Ann PA [address] [facility] [place] [address] 01/03/2026 2:00 PM EDT Procedure Visit MAXINE APONTE [address] [place] [address] Tacho Menendez DO [address] [facility] [place] [address] documented as of this encounter Visit Diagnoses Not on filedocumented in this encounter
--- OUTSIDE RECORDS SUMMARY | 2024-12-29 20:06 | XMS_ITS | Encounter Summary ---
Author Organization [facility] Address [address] [place] [address] Care Team Providers Care Electric Welder Helper Name Role Phone Unavailable Primary Care Provider Unavailabl e Encounter Details Date Type Department Care Team (Late Contact Info) Description 06/01/2024 Abstract MAX[facility] OBGYN [address] [place] [phone] Tacho Menendez DO [address] [facility] [address] [place], [facility] Social History Tobacco Use Types Packs/Day [...] Industry Job Start Date Job End Date [place] Not on file Not on file Not on file documented as of this encounter Plan of Treatment Upcoming Encounters Date Type Department Care Team (Late st Contact Info) Description 02/01/2025 1:30 PM EDT Office Visit MAXINE APONTE [address] [place] [address] Mena Ann PA [address] [facility] [place] [address] 01/03/2026 2:00 PM EDT Procedure Visit MAXINE APONTE [address] [place] [address] Tacho Menendez DO [address] [facility] [place] [address] documented as of this encounter Visit Diagnoses Not on filedocumented in this encounter
--- OUTSIDE RECORDS SUMMARY | 2024-12-29 20:06 | XMS_ITS | Encounter Summary ---
Author Organization [facility] Address [address] [place] [address] Care Team Providers Care Game Attendant Name Role Phone Unavailable Primary Care Provider Unavailabl e Source Comments In the event this information is protected by the Federal Confidentiality of Alcohol and Drug AbusePatient Records regulations: The Federal rules restrict any use of the information to criminally investigate or prosecute any alcohol or drug abuse patient.[facility] Encounter Details Date Type Department Care Team (Late st Contact Info) Description 04/06/2024 Patient Msg General Surgery [address] [place] [address] Provider, [facility] Bariatric and [facility] [place] Social History Tobacco Use Types Packs/Day Years [...] is lower risk 8 08/20/2023 Data from: https://www.neighborhoodatlas.medicine.[facility].edu/. Last address used for calculation [address] 08/20/2023 Comments Unknown Sex and Gender Information [...]
--- OUTSIDE RECORDS SUMMARY | 2024-12-29 20:06 | XMS_ITS | Encounter Summary ---
Author Organization [facility] Address [address] [place] [address] Care Team Providers Care Court Attendant Name Role Phone Unavailable Primary Care Provider Unavailabl e Encounter Details Date Type Department Care Team (Late st Contact Info) Description 10/15/2022 Abstract MAXINE APONTE [address] [place] [address] [place] [address] Tacho Menendez DO [address] [facility] [address] [place], [facility]11 Social History Tobacco Use Types Packs/Day Years Used Date Smoking Tobacco: Never Assessed Comments Unknown Sex and Gender Information Value Date Recorded Sex Assigned at Not on file Legal Sex Female 7:12 PM EDT Gender Identity Not on file Sexual Orientation Not on file documented as of this encounter Plan of Treatment Upcoming Encounters Date Type Department Care Team (Late st Contact Info) Description 02/01/2025 1:30 PM EDT Office Visit MAXINE APONTE [address] [place], [place] [address]Luc[place] [phone] Mena Ann PA [address] [place], [place] [address] 01/03/2026 2:00 PM EDT Procedure Visit MAXINE APONTE [address] [place], [place] [address]Luc[address] [place] [address] Tacho Menendez DO [address] [place], [facility]11 documented as of this encounter Visit Diagnoses Not on filedocumented in this encounter
--- OUTSIDE RECORDS SUMMARY | 2024-12-29 20:06 | XMS_ITS | Encounter Summary ---
Author Organization [facility] Address [address] [facility] [place] [address] Care Team Providers Care Auricular Detoxification Specialist Name Role Phone Unavailable Primary Care Provider Unavailabl e Encounter Details Date Type Department Care Team (Late st Contact Info) Description 03/22/2024 Clinisync Result Encounter [facility]S External Department Unsolicited Mena Urban PA [address] [place] [address] Social History Tobacco Use Types Packs/Day Years [...] Industry Job Start Date Job End Date [place] Not on file Not on file Not on file documented as of this encounter Plan of Treatment Upcoming Encounters Date Type Department Care Team (Late st Contact Info) Description 02/01/2025 1:30 PM EDT Office Visit [facility] [place] OBGYN [address] [place] [phone] Mena Urban PA [address] [facility] [address] [place], [facility] 01/03/2026 2:00 PM EDT Procedure Visit [facility] [place] [facility] [address] [facility] [place] [phone] Tacho Menendez DO [address] [facility] [address] [place], [place] [address] documented as of this encounter Procedures Procedure Name Priority Date/Time Associated Diagnosis Comments US OB GROWTH 03/22/2024 4:02 PM EST documented in this encounter Results * US OB GROWTH (03/22/2024 4:02 PM EST) Anatomical Region Laterality Modality Other 03/22/2024 4:02 PM EST Narrative 03/22/2024 4:05 PM EST The [address] [address] Ultrasound Report Signed Patient: JALEESA ARRIETA MR#: [id number] : 1990 Acct:[id number] Age/Sex: 34 / F ADM Date: 03/22/24 Loc: [facility]OMS Attending Dr: Mena Urban Ordering Physician: Mena Urban Date of Service: 03/22/24 Procedure(s): US OB growth Accession Number(s): [id number] cc: Mena Urban; Physician,Non-Staff M.D. The [address] [address] Patient Name: JALEESA ARRIETA MRN: [id number] date: 1990 Sex: F Assigned Patient Location: [facility] Current Patient Location: [facility] Accession/Order Number: [id number] Exam Date: 03/22/2024 13:22 Report Date: 03/22/2024 16:02 At the request of: MENA URBAN Procedure: US OB growth EXAMINATION: US OB growth HISTORY: size inconsistent with dates O26.849 COMPARISON: No relevant comparison available. FINDINGS: Heart Rate: 145 bpm Amniotic Fluid Volume: 11.2 cm, largest fluid pocket 4.0 cm Number: 1 Position: Breech presentation, longitudinal lie Placenta: Anterior, grade 0 Other: Multiple myometrial masses likely fibroids BIOMETRY: BPD: 7.22 cm; 29 weeks 0 days; 32.20 % HC: 27.61 cm; 30 weeks 1 day; 47.40 % AC: 25.72 cm; 29 weeks 6 days; 66.70 % FL: 5.80 cm; 30 weeks 2 days; 69.60 % EFW: 1383.83 g; 68.80 %, 3 lbs. 5 oz. FL/AC: 22.55 FL/BPD: 80.33 HC/AC: 1.07 GESTATIONAL AGE: Age by EDC: 29 weeks 1 day DARLENE by EDC: 2024-06-06 Age by US: 29 weeks 4 days DARLENE by US: 2024-06-03 US/US OB growth IMPRESSION: Normal interval growth Electronically authenticated by: GEORGETTE LIANG Date: 03/22/2024 16:02 Dictated By: Georgette Liang M.D. Signed By: 03/22/241604 DD/ 01 TD/TT: Grove Superintendent: Procedure Note Radiology, Radiologist, MD - 03/22/2024 [place] [address] Ultrasound Report Signed Patient: JALEESA ARRIETA [facility]#: [id number] : 1990Acct:[id number] Age/Sex: 34 / FADM Date: 03/22/24 Loc: [facility] Attending Dr: Mena Urban Ordering Physician: Mena Urban Date of Service: 03/22/24 Procedure(s): US OB growth Accession Number(s): [id number] cc: Mena Urban; Physician,Non-Staff [place] The [place] [id number] Patient Name: JALEESA ARRIETA MRN: [id number] date: 1990 Sex: F Assigned Patient Location: [facility] Current Patient Location: [facility] Accession/Order Number: [id number] Exam Date: 03/22/2024 13:22 Report Date: 03/22/2024 16:02 At the request of: MENA URBAN Procedure: US OB growth EXAMINATION: US OB growth HISTORY: size inconsistent with dates O26.849 COMPARISON: No relevant comparison available. FINDINGS: Heart Rate: 145 bpm Amniotic Fluid Volume: 11.2 cm, largest fluid pocket 4.0 cm Number: 1 Position: Breech presentation, longitudinal lie Placenta: Anterior, grade 0 Other: Multiple myometrial masses likely fibroids BIOMETRY: BPD: 7.22 cm; 29 weeks 0 days; 32.20 % HC: 27.61 cm; 30 weeks 1 day; 47.40 % AC: 25.72 cm; 29 weeks 6 days; 66.70 % FL: 5.80 cm; 30 weeks 2 days; 69.60 % EFW: 1383.83 g; 68.80 %, 3 lbs. 5 oz. FL/AC: 22.55 FL/BPD: 80.33 HC/AC: 1.07 GESTATIONAL AGE: Age by EDC: 29 weeks 1 day DARLENE by EDC: 2024-06-06 Age by US: 29 weeks 4 days DARLENE by US: 2024-06-03 US/US OB growth IMPRESSION: Normal interval growth Electronically authenticated by: GEORGETTE LIANG Date: 03/22/2024 16:02 Dictated By: Georgette Liang M.D. Signed By:03/22/24 1605 DD/ 01 TD/TT: Grove Superintendent: us Mena [facility] Final Result documented in this encounter Visit Diagnoses Not on filedocumented in this encounter
--- OUTSIDE RECORDS SUMMARY | 2024-12-29 20:06 | XMS_ITS | Encounter Summary ---
Author Organization [facility] Address [address] [facility] [place] [address] Care Team Providers Care Tonal Regulator Name Role Phone Unavailable Primary Care Provider Unavailabl e Encounter Details Date Type Department Care Team (Late Contact Info) Description 12/30/2023 Orders Only MAXINE APONTE [address] [facility] [place] [phone] Toshia Castillo MA [address] [facility] [place] [address] Social History Tobacco Use Types Packs/Day Years [...] Industry Job Start Date Job End Date [employer] Not on file Not on file Not on file documented as of this encounter Plan of Treatment Upcoming Encounters Date Type Department Care Team (Late st Contact Info) Description 02/01/2025 1:30 PM EDT Office Visit MAXINE APONTE [address] [facility] [place] [address] Mena Ann PA [address] [facility] [place] [address] 01/03/2026 2:00 PM EDT Procedure Visit NOMKris Anderson APONTE [address] [facility] [place] [address] Tacho Menendez DO [address] [facility] [place] [address] documented as of this encounter Procedures Procedure Name Priority Date/Time Associated Diagnosis Comments PAP SMEAR Routine 12/23/2023 12:00 AM EDT documented in this encounter Results * Pap Smear (12/23/2023 12:00 AM EDT) Swab Cervical swab / Unknown Mena [facility] ORDERABLES Final Re sult EXTERNAL LAB documented in this encounter Visit Diagnoses Not on filedocumented in this encounter
--- OUTSIDE RECORDS SUMMARY | 2024-12-29 20:06 | XMS_ITS | Encounter Summary ---
Author Organization [facility] Address [address] [place] [place] [address] Care Team Providers Care Community Health Director Name Role Phone Unavailable Primary Care Provider Unavailabl e Encounter Details Date Type Department Care Team (Late Contact Info) Description 04/01/2024 Abstract MAXINE [place] OBGYN [address] [facility] [place] [phone] Tacho Menendez DO [address] [facility] [address] [place], [facility] Social History Tobacco Use Types Packs/Day [...] Industry Job Start Date Job End Date [employer] Not on file Not on file Not on file documented as of this encounter Plan of Treatment Upcoming Encounters Date Type Department Care Team (Late st Contact Info) Description 02/01/2025 1:30 PM EDT Office Visit MAXINE APONTE [address] [facility] [place] [address] Mena Ann PA [address] [facility] [place] [address] 01/03/2026 2:00 PM EDT Procedure Visit MAXINE APONTE [address] [facility] [place] [address] Tacho Menendez DO [address] [facility] [place] [address] documented as of this encounter Visit Diagnoses Not on filedocumented in this encounter
--- OUTSIDE RECORDS SUMMARY | 2024-12-29 20:06 | XMS_ITS | Encounter Summary ---
Author Organization [facility] Address [address] [place] [address] [place] [address] Care Team Providers Care Antenna Installer Name Role Phone Unavailable Primary Care Provider Unavailabl e Encounter Details Date Type Department Care Team (Late Contact Info) Description 12/24/2023 Abstract MAXINE Barron OBGYN [address] [place] [phone] Tacho Menendez DO [address] Karen [place]ron, [facility]11 Social History Tobacco Use Types Packs/Day [...] Industry Job Start Date Job End Date [place] Not on file Not on file Not on file documented as of this encounter Plan of Treatment Upcoming Encounters Date Type Department Care Team (Late st Contact Info) Description 02/01/2025 1:30 PM EDT Office Visit MAXINE APONTE [address] [place] [address] Mena Ann PA [address] [place] [address] 01/03/2026 2:00 PM EDT Procedure Visit MAXINE APONTE [address] [place] [address] Tacho Menendez DO [address] [place] [address] documented as of this encounter Visit Diagnoses Not on filedocumented in this encounter
--- OUTSIDE RECORDS SUMMARY | 2024-12-29 20:06 | XMS_ITS | Encounter Summary ---
Author Organization [facility] Address [address] [place] [address] Care Team Providers Care Manager Commodities Name Role Phone Unavailable Primary Care Provider Unavailabl e Encounter Details Date Type Department Care Team (Late Contact Info) Description 05/25/2024 Abstract MAXINE Barron OBGYN [address] [place] [phone] Tacho Menendez DO [address] [facility] [address] Karen [place]ron, [facility]11 Social History Tobacco Use Types Packs/Day Years [...] Industry Job Start Date Job End Date [place] Not on file Not on file Not on file documented as of this encounter Plan of Treatment Upcoming Encounters Date Type Department Care Team (Late st Contact Info) Description 02/01/2025 1:30 PM EDT Office Visit MAXINE APONTE [address] [place] [address] Mena Ann PA [address] [facility] [place] [address] 01/03/2026 2:00 PM EDT Procedure Visit MAXINE APONTE [address] [address] Tacho Menendez DO [address] [facility] [place] [address] documented as of this encounter Visit Diagnoses Not on filedocumented in this encounter
--- OUTSIDE RECORDS SUMMARY | 2024-12-29 20:06 | XMS_ITS | Encounter Summary ---
Author Organization [facility] Address [address] [place] [address] Care Team Providers Care Music Arranger Name Role Phone Unavailable Primary Care Provider Unavailabl e Encounter Details Date Type Department Care Team (Late Contact Info) Description 05/26/2024 Abstract MAXINE Barron OBGYN [address] [facility] [place] [phone] Tacho Menendez DO [address] [facility] [address] Karen Barron, [facility]11 Social History Tobacco Use Types Packs/Day [...] Industry Job Start Date Job End Date [place] Not on file Not on file Not on file documented as of this encounter Plan of Treatment Upcoming Encounters Date Type Department Care Team (Late st Contact Info) Description 02/01/2025 1:30 PM EDT Office Visit MAXINE APONTE [address] [place] [address] Mena Ann PA [address] [facility] [place] [address] 01/03/2026 2:00 PM EDT Procedure Visit MAXINE APONTE [address] [place] [address] Tacho Menendez DO [address] [facility] [place] [address] documented as of this encounter Visit Diagnoses Not on filedocumented in this encounter
--- OUTSIDE RECORDS SUMMARY | 2024-12-29 20:06 | XMS_ITS | Encounter Summary ---
Author Organization [facility] Address [address] [place] [address] Care Team Providers Care Digital Production Artist Name Role Phone Unavailable Primary Care Provider Unavailabl e Encounter Details Date Type Department Care Team (Late st Contact Info) Description 10/15/2022 Abstract MAXINE APONTE [address] [place] [address] [place] [address] Tacho Menendez DO [address] [facility] [address] [address] Karen Barron, [facility]11 Social History Tobacco Use Types Packs/Day [...] PM EDT Office Visit MAXINE APONTE [address] [place], [place] [address] [phone] Mena Ann PA [address] [place], [place] [address] 01/03/2026 2:00 PM EDT Procedure Visit MAXINE APONTE [address] [place], [place] [address] [address] Tacho Menendez DO [address], [facility]11 documented as of this encounter Visit Diagnoses Not on filedocumented in this encounter
--- OUTSIDE RECORDS SUMMARY | 2024-12-29 20:06 | XMS_ITS | Encounter Summary ---
Author Organization [facility] Address [address] [place] [address] [place] [address] Care Team Providers Care Railroad Passenger Agent Name Role Phone Unavailable Primary Care Provider Unavailabl e Encounter Details Date Type Department Care Team (Late Contact Info) Description 02/19/2024 Abstract MAXINE Barron OBGYN [address] [facility] [facility] [place] [phone] Tacho Menendez DO [address] [facility] [address] Karen Barron, [facility]11 Social History Tobacco Use Types Packs/Day Years [...] Industry Job Start Date Job End Date [place] Not on file Not on file Not on file documented as of this encounter Plan of Treatment Upcoming Encounters Date Type Department Care Team (Late st Contact Info) Description 02/01/2025 1:30 PM EDT Office Visit MAXINE APONTE [address] [facility] [facility] [place] [address] Mena Ann PA [address] [facility] [place] [address] 01/03/2026 2:00 PM EDT Procedure Visit MAXINE APONTE [address] [facility] [facility] [place] [address] Tacho Menendez DO [address] [facility] [place] [address] documented as of this encounter Visit Diagnoses Not on filedocumented in this encounter
--- OUTSIDE RECORDS SUMMARY | 2024-12-29 20:06 | XMS_ITS | Encounter Summary ---
Author Organization [facility] Address [address] [facility] [place] [address] Care Team Providers Care Table Inspector Name Role Phone Unavailable Primary Care Provider Unavailabl e Encounter Details Date Type Department Care Team (Late st Contact Info) Description 05/22/2024 Clinisync Result Encounter NOM[facility] External Department Unsolicited Mena Urban PA [address] [place] [address] Social History Tobacco Use Types Packs/Day Years [...] 1:30 PM EDT Office Visit MAXINE Barron OBSHAW [address] [place] [phone] Mena Urban PA [address] [facility] [address] [place], [place] [address] 01/03/2026 2:00 PM EDT Procedure Visit [facility] [place] [facility] [address] [facility] [place] [phone] Tacho Menendez DO [address] [facility] [address] [place], [place] [address] documented as of this encounter Procedures Procedure Name Priority Date/Time Associated Diagnosis Comments US OB BPP W NON-STRESS 05/22/2024 3:58 PM EST documented in this encounter Results * US OB BPP W NON-STRESS (05/22/2024 3:58 PM EST) Anatomical Region Laterality Modality Other 05/22/2024 3:58 PM EST Narrative 05/22/2024 4:00 PM EST The [address] [address] Ultrasound Report Signed Patient: FABRIZIO ARRIETA MR#: [id number] : 1990 Acct:[id number] Age/Sex: 34 / F ADM Date: 05/22/24 Loc: US Attending Dr: Mena Urban Ordering Physician: Mena Urban Date of Service: 05/22/24 Procedure(s): US OB BPP w non-stress Accession Number(s): [id number] cc: Mena Urban; Physician,Non-Staff M.DNikki The [address] [address] Patient Name: FABRIZIO ARRIETA MRN: [id number] date: 1990 Sex: F Assigned Patient Location: [facility] Current Patient Location: Accession/Order Number: [id number] Exam Date: 05/22/2024 13:06 Report Date: 05/22/2024 15:58 At the request of: MENA URBAN Procedure: US OB BPP w non-stress EXAMINATION: US OB BPP w non-stress HISTORY:History of premature delivery COMPARISON: Ultrasound OB biophysical 05/14/2024 TECHNIQUE: Ultrasound biophysical profile was performed in the radiology department. BREATHING MOVEMENTS: 2 GROSS BODY MOVEMENTS: 2 TONE: 2 QUALITATIVE AMNIOTIC FLUID VOLUME: 2 PRESENTATION: CEPHALIC HEART RATE: 146.74 bpm AMNIOTIC FLUID VOLUME: 11.22 cm GESTATIONAL AGE: 37 weeks 6 days US/US OB BPP w non-stress IMPRESSION: Total biophysical profile score: 8 Electronically authenticated by: ADOLPH VILLAREAL Date: 05/22/2024 15:58 Dictated By: Adolph Villareal M.D. Signed By: 05/22/241599 DD/ 155 TD/TT: Risk Reduction Counselor: Procedure Note Radiology, Radiologist, MD - 05/22/2024 [place] [address] Ultrasound Report Signed Patient: FABRIZIO ARRIETA NMR#: [id number] : 1990Acct:[id number] Age/Sex: 34 / FADM Date: 05/22/24 Loc: US Attending Dr: Mena Urban Ordering Physician: Mena Urban Date of Service: 05/22/24 Procedure(s): US OB BPP w non-stress Accession Number(s): [id number] cc: Mena Urban; Physician,Non-Staff MEsha The [place] [id number] Patient Name: FABRIZIO ARRIETA MRN: [id number] date: 1990 Sex: F Assigned Patient Location: [facility] Current Patient Location: Accession/Order Number: [id number] Exam Date: 05/22/2024 13:06 Report Date: 05/22/2024 15:58 At the request of: MENA URBAN Procedure: US OB BPP w non-stress EXAMINATION: US OB BPP w non-stress HISTORY:History of premature delivery COMPARISON: Ultrasound OB biophysical 05/14/2024 TECHNIQUE: Ultrasound biophysical profile was performed in the radiology department. BREATHING MOVEMENTS: 2 GROSS BODY MOVEMENTS: 2 TONE: 2 QUALITATIVE AMNIOTIC FLUID VOLUME: 2 PRESENTATION: CEPHALIC HEART RATE: 146.74 bpm AMNIOTIC FLUID VOLUME: 11.22 cm GESTATIONAL AGE: 37 weeks 6 days US/US OB BPP w non-stress IMPRESSION: Total biophysical profile score: 8 Electronically authenticated by: ADOLPH VILLAREAL Date: 05/22/2024 15:58 Dictated By: Adolph Villareal M.D. Signed By:05/22/24 1600 DD/ 1558 TD/TT: Risk Reduction Counselor: us Mena CARRILLO [facility] Final Result documented in this encounter Visit Diagnoses Not on filedocumented in this encounter
--- OUTSIDE RECORDS SUMMARY | 2024-12-29 20:06 | XMS_ITS | Clinical Summary ---
Author Organization [facility] Address [facility] [place] [address] Care Team Providers Care Gasoline Engine Assembler Name Role Phone Unavailable Primary Care Provider Unavailabl e Medications * This document contains information received from the source organization and may not represent a complete record from that organization. cholecalciferol , Vitamin D3, (VITAMIN D3) 1,250 mcg (50,000 unit) cap capsuleIndicati ons:Vitamin D deficiency Take 1 capsule by mouth one time a week. 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 08/20/19 24 High blood cholesterol 08/20/2023 4 Shoulder joint pain 08/20/2023 08/20/2023 Body mass index (BMI) of 50-59.9 in adult 202308/20/2023 Social History Tobacco Use Types Packs/Day Years Used Date Smoking Tobacco: Never Smokeless Tobacco: Never Tobacco Cessation:Counseling Given: Not Answered Alcohol Use Standard Drinks/Week Comments Yes 0 (1 standard drink = 0.6 oz pur e alcohol) occ PHQ-2 Answer Date Recorded PHQ-2 score 2 10/09/2023 Area Deprivation Index Answer Date James rded National Score (1-100), lower number is lower ri sk 86 08/20/2023 State Score (1-10), lower number is lower risk 8 08/20/2023 Data from: https://www.neighborhoodatlas.medicine.[facility].edu/. Last address used for calculation [address] 08/20/2023 Comments Unknown Sex and Gender Information Value Date Recorded Sex Assigned at Female 08/26/2023 4:19 AM EDT Legal Sex Female 4:17 PM EST Gender Identity Female 08/26/2023 4:19 AM EDT Sexual Orientation Straight 08/26/2023 4: 19 AM EDT Last Filed Vital Signs Vital Sign Reading Time Taken Comments Blood Pressure - - Pulse - - Temperature - - Respiratory Rate - - Oxygen Saturation - - Inhaled Oxygen Concentration - - Weight 133.8 kg (295 lb) 09/17/2023 2:22 PM EDT Height 167.6 cm (5' 6 ) 09/17/2023 2:22 PM EDT Body Mass Index 47.61 09/17/2023 2:22 PM EDT Plan of Treatment Health Maintenance Due Date Last Done Comments DTaP,Tdap,Td Vaccine (6 - Tdap) 2002 01/07/1997, 09/03/1993, 01/22/1993, Additional history exists Anxiety Screening 2009 Depression Screening 2009 HIV Screening 2009 Hepatitis B Vaccine (1 of 3 - 19+ 3-dose series) 2010 Cervical Cancer Screening 2012 Influenza Vaccine (#1) 2025 3, 03/28/2015, 02/28/2009 HPV Vaccine Completed 07/28/2015, 03/12, 01/24/2015 Hepatitis C Screening Completed 01/24/2020 Insurance [employer] [place]
--- OUTSIDE RECORDS SUMMARY | 2024-12-29 20:06 | XMS_ITS | Encounter Summary ---
Author Organization [facility] Address [address] [facility] [place] [address] Care Team Providers Care Sandblast Operator Name Role Phone Unavailable Primary Care Provider Unavailabl e Encounter Details Date Type Department Care Team (Late st Contact Info) Description 04/30/2024 Clinisync Result Encounter [facility] External Department Unsolicited Melissa Menendez DO [address] [place] [address] Social History Tobacco Use Types Packs/Day Years [...] Industry Job Start Date Job End Date [place] Not on file Not on file Not on file documented as of this encounter Plan of Treatment Upcoming Encounters Date Type Department Care Team (Late st Contact Info) Description 02/01/2025 1:30 PM EDT Office Visit [facility] [place] [address] [place] [phone] Mena Ann PA [address] [place], [place] [address] 01/03/2026 2:00 PM EDT Procedure Visit [facility] [address] [facility] [facility] [address] [place], [phone] Melissa Menendez DO [address] Karen [place], [place] [address] documented as of this encounter Procedures Procedure Name Priority Date/Time Associated Diagnosis Comments US OB BPP W NON-STRESS 04/30/2024 4:14 PM EST documented in this encounter Results * US OB BPP W NON-STRESS (04/30/2024 4:14 PM EST) Anatomical Region Laterality Modality Other 04/30/2024 4:14 PM EST Narrative 04/30/2024 4:17 PM EST [place] [id number] Ultrasound Report Signed Patient: JALEESA ARRIETA MR#: [id number] : 1990 Acct:[id number] Age/Sex: 34 / F ADM Date: 04/30/24 Loc: [facility] 250-[address]: Melissa Menendez D.O. Ordering Physician: Melissa Menendez D.O. Date of Service: 04/30/24 Procedure(s): US OB BPP w non-stress Accession Number(s): [id number] cc: Melissa Menendez D.O.; Physician,Non-Staff M.DNikki The [address] [address] Patient Name: JALEESA ARRIETA MRN: [id number] date: 1990 Sex: F Assigned Patient Location: [facility] Current Patient Location: [facility] Accession/Order Number: [id number] Exam Date: 04/30/2024 15:07 Report Date: 04/30/2024 16:14 At the request of: MELISSA MENENDEZ Procedure: US OB BPP w non-stress EXAMINATION: US OB BPP w non-stress HISTORY: History of delivery Z87.51 COMPARISON: No relevant comparison available. TECHNIQUE: Ultrasound biophysical profile was performed in the radiology department. non-reactive stress testing was performed by nursing staff in the birthing center. FINDINGS: BREATHING MOVEMENTS: 2 GROSS BODY MOVEMENTS: 2 TONE: 2 QUALITATIVE AMNIOTIC FLUID VOLUME: 2 PRESENTATION: CEPHALIC HEART RATE: 145.95 bpm AMNIOTIC FLUID VOLUME: 9.8 cm GESTATIONAL AGE: 243 Day US/US OB BPP w non-stress IMPRESSION: Total biophysical profile score: 8 Electronically authenticated by: GEORGETTE LIANG Date: 04/30/2024 16:14 Dictated By: Georgette Liang M.D. Signed By: 04/30/241616 DD/ 13 TD/TT: Executive Meeting Manager: Procedure Note Radiology, Radiologist, MD - 04/30/2024 [place] [address] Ultrasound Report Signed Patient: JALEESA ARRIETA NMR#: [id number] : 1990Acct:[id number] Age/Sex: 34 / FADM Date: 04/30/24 Loc: [facility] 250-[address]: Melissa Menendez D.O. Ordering Physician: Melissa Menendez D.O. Date of Service: 04/30/24 Procedure(s): US OB BPP w non-stress Accession Number(s): [id number] cc: Melissa Menendez D.O.; Physician,Non-Staff MEsha The [address] [address] Patient Name: JALEESA ARRIETA MRN: [id number] date: 1990 Sex: F Assigned Patient Location: [facility] Current Patient Location: [facility] Accession/Order Number: [id number] Exam Date: 04/30/2024 15:07 Report Date: 04/30/2024 16:14 At the request of: MELISSA MENENDEZ Procedure: US OB BPP w non-stress EXAMINATION: US OB BPP w non-stress HISTORY: History of delivery Z87.51 COMPARISON: No relevant comparison available. TECHNIQUE: Ultrasound biophysical profile was performed in the radiology department. non-reactive stress testing was performed by nursingstaff in the birthing center. FINDINGS: BREATHING MOVEMENTS: 2 GROSS BODY MOVEMENTS: 2 TONE: 2 QUALITATIVE AMNIOTIC FLUID VOLUME: 2 PRESENTATION: CEPHALIC HEART RATE: 145.95 bpm AMNIOTIC FLUID VOLUME: 9.8 cm GESTATIONAL AGE: 243 Day US/US OB BPP w non-stress IMPRESSION: Total biophysical profile score: 8 Electronically authenticated by: GEORGETTE LIANG Date: 04/30/2024 16:14 Dictated By: Georgette Liang M.D. Signed By:04/30/24 1617 DD/ 1614 TD/TT: Executive Meeting Manager: us Melissa Menendez DO [facility] Final Result documented in this encounter Visit Diagnoses Not on filedocumented in this encounter
--- OUTSIDE RECORDS SUMMARY | 2024-12-29 20:06 | XMS_ITS | Clinical Summary ---
Author Organization [facility] Address [address] [place] [address] Phone Care Team Providers Care Price Clerk Name Role Phone Unavailable Primary Care Provider Unavailabl e Social History Tobacco Use Types Packs/Day Years Used Date Smoking Tobacco: Never Assessed Comments Unknown Sex and Gender Information Value Date Recorded Sex Assigned at Not on file Legal Sex Female 8:44 PM EST Gender Identity Not on file Sexual Orientation Not on file Last Filed Vital Signs Vital Sign Reading Time Taken Comments Blood Pressure 129/87 2020 1:08 PM EST Pulse 96 2020 1:08 PM EST Temperature 36.5 C (97.7 F) 01/24/2020 11:13 AM EDT Respiratory Rate - - Oxygen Saturation - - Inhaled Oxygen Concentration - - Weight 131 kg (289 lb) 06/19/2020 9:10 AM EST Height 167.6 cm (5' 6 ) 06/19/2020 9:10 AM EST Body Mass Index 46.65 06/19/2020 9:10 AM EST Plan of Treatment Not on file
--- OUTSIDE RECORDS SUMMARY | 2024-12-29 20:06 | XMS_ITS | Encounter Summary ---
Author Organization [facility] Address [address] [facility] [place] [address] Care Team Providers Care Restaurant District Manager Name Role Phone Unavailable Primary Care Provider Unavailabl e Encounter Details Date Type Department Care Team (Late st Contact Info) Description 05/28/2024 Clinisync Result Encounter [facility] External Department Unsolicited Mena Urban PA [address] [place] [address] Social History Tobacco Use Types Packs/Day Years [...] Industry Job Start Date Job End Date [place] Not on file Not on file Not on file documented as of this encounter Plan of Treatment Upcoming Encounters Date Type Department Care Team (Late st Contact Info) Description 02/01/2025 1:30 PM EDT Office Visit MAXINE Barron OBGYN [address] [place] [phone] Mena Urban PA [address] [facility] [address] [place], [place] [address] 01/03/2026 2:00 PM EDT Procedure Visit [facility] [place] [facility] [address] [phone] Tacho Menendez DO [address] [facility] [address] Karen [place], [place] [address] documented as of this encounter Procedures Procedure Name Priority Date/Time Associated Diagnosis Comments US OB BPP W NON-STRESS 05/28/2024 4:22 PM EST documented in this encounter Results * US OB BPP W NON-STRESS (05/28/2024 4:22 PM EST) Anatomical Region Laterality Modality Other 05/28/2024 4:22 PM EST Narrative 05/28/2024 4:25 PM EST The [address] [address] Ultrasound Report Signed Patient: JALEESA ARRIETA MR#: [id number] : 1990 Acct:[id number] Age/Sex: 34 / F ADM Date: 05/28/24 Loc: [facility] 254-[address]: Tacho Menendez D.O. Ordering Physician: Mena Urban Date of Service: 05/28/24 Procedure(s): US OB BPP w non-stress Accession Number(s): [id number] cc: Mena Urban; Physician,Non-Staff [place] The [address] [address] Patient Name: JALEESA ARRIETA MRN: [id number] date: 1990 Sex: F Assigned Patient Location: [facility] Current Patient Location: [facility] Accession/Order Number: [id number] Exam Date: 05/28/2024 15:26 Report Date: 05/28/2024 16:22 At the request of: MENA URBAN Procedure: US OB BPP w non-stress EXAMINATION: US OB BPP w non-stress HISTORY:H/O PREMATURE DELIVERY Z87.51 COMPARISON: Ultrasound OB biophysical 05/22/2024 TECHNIQUE: Ultrasound biophysical profile was performed in the radiology department. BREATHING MOVEMENTS: 2 GROSS BODY MOVEMENTS: 2 TONE: 2 QUALITATIVE AMNIOTIC FLUID VOLUME: 2 PRESENTATION: CEPHALIC HEART RATE: 150.84 bpm AMNIOTIC FLUID VOLUME: 14.12 cm GESTATIONAL AGE: 38 weeks 5 days US/US OB BPP w non-stress IMPRESSION: Total biophysical profile score: 8 Electronically authenticated by: ADOLPH VILLAREAL Date: 05/28/2024 16:22 Dictated By: Adolph Villareal M.D. Signed By: 05/28/241624 DD/ 21 TD/TT: Actionscript Developer: Procedure Note Radiology, Radiologist, MD - 05/28/2024 [place] [address] Ultrasound Report Signed Patient: JALEESA ARRIETA NMR#: [id number] : 1990Acct:[id number] Age/Sex: 34 / FADM Date: 05/28/24 Loc: [facility] 254-[address]: Tacho Menendez D.O. Ordering Physician: Mena Urban Date of Service: 05/28/24 Procedure(s): US OB BPP w non-stress Accession Number(s): [id number] cc: Mena Urban; Physician,Non-Staff [place] The [place] [address] Patient Name: JALEESA ARRIETA MRN: [id number] date: 1990 Sex: F Assigned Patient Location: [facility] Current Patient Location: [facility] Accession/Order Number: [id number] Exam Date: 05/28/2024 15:26 Report Date: 05/28/2024 16:22 At the request of: MENA URBAN Procedure: US OB BPP w non-stress EXAMINATION: US OB BPP w non-stress HISTORY:H/O PREMATURE DELIVERY Z87.51 COMPARISON: Ultrasound OB biophysical 05/22/2024 TECHNIQUE: Ultrasound biophysical profile was performed in the radiology department. BREATHING MOVEMENTS: 2 GROSS BODY MOVEMENTS: 2 TONE: 2 QUALITATIVE AMNIOTIC FLUID VOLUME: 2 PRESENTATION: CEPHALIC HEART RATE: 150.84 bpm AMNIOTIC FLUID VOLUME: 14.12 cm GESTATIONAL AGE: 38 weeks 5 days US/US OB BPP w non-stress IMPRESSION: Total biophysical profile score: 8 Electronically authenticated by: ADOLPH VILLAREAL Date: 05/28/2024 16:22 Dictated By: Adolph Villareal M.D. Signed By:05/28/245 DD/ 21 TD/TT: Actionscript Developer: us Mena CARRILLO [facility] Final Result documented in this encounter Visit Diagnoses Not on filedocumented in this encounter
--- OUTSIDE RECORDS SUMMARY | 2024-12-29 20:06 | XMS_ITS | Encounter Summary ---
Author Organization [facility] tem Address [id number] [address] [place] [address] Care Team Providers Care Machine Set Up Name Role Phone Unavailable Primary Care Provider Unavailabl e Reason for Referral * Diagnostic Imaging (Routine) - Pending Review Specialty Diagnoses / Procedures Referred By Wendy campos Referred To Contact Maternal and Medicine Diagnoses Encounter for follow-up ultrasound of anatomy Procedures US MFM with or without consult US MFM with or without consult Zahra Donnelly MD [address] [place] [address], [address] [place] [address] 05/11/2024 [place] [address] Phone: tel: fax: Maternal- Medicine at [address] [address] Phone: tel: fax: Referral ID Status Reason Start Date Expiration Date V isits Requested Visits Authorized [id number] Pending Review 01/20/2024 01/19/2025 1 1 Encounter Details Date Type Department Care Team (Late st Contact Info) Description 01/20/2024 Orders Only Maternal- Medicine at [address] [phone] Nicki Chapman, RUIZ Encounter for follow-up ultrasound of anatomy (Primary Dx) Social History Tobacco Use Types Packs/Day Years Used Date Smoking Tobacco: Never Smokeless Tobacco: Never Alcohol Use Standard Drinks/Week Comments Not Currently 0 (1 standard drink = 0.6 oz pur e alcohol) Childcare Answer Date Recorded Childcare Unknown 10/19/2018 Employment Answer Date Recorded Employment Unknown 10/19/2018 Hunger Screening Answer Date Recorded Within the past 12 months we worried whether our food would run out before we got money to buy more. Never True 01/19/2024 Within the past 12 months th e food we bought just didn't last and we didn't have money to get more. Never True 01/19/2024 Comments Yes Sex and Gender Information Value Date Recorded Sex Assigned at Not on file Legal Sex Female 2:28 PM EDT Gender Identity Not on file Sexual Orientation Not on file documented as of this encounter Plan of Treatment Not on file documented as of this encounter Results * US [facility] OB FOLLOW-UP, 1 FETUS (02/17/2024 3:43 PM EDT) Anatomical Region Laterality Modality OB-[employer] Ultrasound 02/17/2024 3:14 PM EDT Impressions 02/17/2024 5:23 PM EDT IMPRESSION: 1. Single intrauterine with expected interval growth from the previous ultrasound. 2. Amniotic fluid assessment (DVP) is normal. 3. Multiple uterine fibroids are seen, see above. RECOMMENDATIONS: 1. Patient is scheduled in 4-6 weeks to complete the anatomic survey. 2. Subsequent follow up or other follow up as clinically determined by primary OB provider unless otherwise specified by MFM. 3. Results forwarded to ordering provider so they can follow up with the patient as necessary. Narrative 02/17/2024 5:23 PM EDT OBSTETRICS REPORT (Signed Final 02/17/2024 17:23) PATIENT INFO: ID #: [id number] : [birth year] (33 yrs)(F) Name: JALEESA JAIMES Visit Date: 02/17/2024 15:14 ARRIETA PERFORMED BY: Attending: Amirah Palma MD Performed By: Tory Littlejohn RDMS Referred By: Tacho Menendez DO Ref. 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, E03.9 Hypertension, gestational without significant O13.9 proteinuria History of previous with pre- O09.299 eclampsia History of previous with O09.899 delivery: 36w0d Obesity in , antepartum O99.210 Supervision of other high risk , O09.90 antepartum: Hx Left salpingectomy VITAL SIGNS: Weight (lb): 300.2 Height: 5'6 BMI: 48.45 EVALUATION: Num Of Fetuses: 1 Heart Rate(bpm): 148 Cardiac Activity: Present & appears normal Presentation: Cephalic Placenta: Anterior, away from cervical os Largest Pocket(cm) 5.47 BIOMETRY: BPD: 57.8 mm G.Age: 23w 5d 23 % OFD: 73.8 mm HC: 210.9 mm G.Age: 23w 1d 4.8 % AC: 185.5 mm G.Age: 23w 2d 15 % FL: 45.2 mm G.Age: 25w 0d 59 % HUM: 42 mm G.Age: 25w 2d 66 % CER: 28.3 mm G.Age: 25w 1d 80 % LV: 4.1 mm CM: 5.6 mm TIB: 40.1 mm G.Age: 25w 2d 71 % CI: 78.3 % 70 - 86 FL/HC: 21.4 % 18.7 - 20.9 HC/AC: 1.14 1.05 - 1.21 FL/BPD: 78.2 % 71 - 87 FL/AC: 24.4 % 20 - 24 Est. FW: 645 gm 1 lb 7 oz 26 % OB HISTORY: : 3 Reynold: 1 Ectopic: 1 Livin GESTATIONAL AGE: U/S Today: 23w 6d DARLENE: 06/09/24 Best: 24w 2d Det. By: Early DARLENE: 06/06/24 Ultrasound (10/30/23) TARGETED ANATOMY: Central Nervous System Calvarium/Cranial V.: Appears normal Intracranial May: Appears normal Cavum: Appears normal Lateral Ventricles: Appears normal Choroid Plexus: Previously seen Cereb./Vermis: Appears normal Cisterna Magna: Appears normal Midline Falx: Previously seen Spine Cervical: Appears normal Thoracic: Appears normal Lumbar: Appears normal Sacral: Appears normal Head/Neck Face: Previously seen Lips: Previously seen Neck: Previously seen Nuchal Fold: Previously seen Nasal Bone: Could Not Document Profile: Not well visualized Orbits/Eyes: Previously seen Mandible: Previously seen Maxilla: Previously seen Thorax Thoracic Contour: Appears normal Lungs: Previously seen 4 Chamber View: Appears normal Cardiac Activity: Appears Normal Cardiac Rhythm: Normal Cardiac Situs: Appears normal Rt Outflow Tract: Appears normal Lt Outflow Tract: Appears normal Aortic Arch: Previously seen Ductal Arch: Previously seen SVC: Appears Normal Interventr. Septum: Appears Normal Cardiac [place]: Appears normal Diaphragm: Previously seen 3 Vessel View: Appears normal 3 V Trachea View: Previously seen IVC: Appears normal Crossing: Could not document Abdomen Ventral Wall: Previously seen Cord Insertion: Previously seen Situs: Previously seen Stomach: Appears normal Liver: Appears normal Lt Kidney: Appears normal Rt Kidney: Appears normal Bladder: Appears normal Extremities Lt Humerus: Previously seen Rt Humerus: Previously seen Lt Forearm: Previously seen Rt Forearm: Previously seen Lt Hand: Previously seen Rt Hand: Previously seen Lt Femur: Previously seen Rt Femur: Previously seen Lt Lower Leg: Previously seen Rt Lower Leg: Previously seen Lt Foot: Previously seen Rt Foot: Previously seen Other Umbilical Cord: Appears normal Genitalia: Previously seen CERVIX UTERUS ADNEXA: Cervix Not visualized due to late gest. age Uterus Gravid uterus Right Ovary Not visualized Left Ovary Not visualized MYOMAS: Site L(cm) W(cm) D(cm) Location Posterior 4.65 5.07 4.83 Anterior rt 1.82 0.97 1.78 Right lateral 2.11 1.94 2.15 Blood Flow RI PI Comments COMMENTS: 1. Ultrasound is not diagnostic for chromosomal abnormalities, will not detect all structural abnormalities, and is not diagnostic for genetic disorders even if multiple exams are performed during a given . 2. anatomic survey is incomplete due to position and maternal body habitus. 3. Images of optimal diagnostic quality could not be obtained. Amirah Palma MD Electronically Signed Final Report 02/17/2024 17:23 Procedure Note Amirah Palma MD - 02/17/2024 OBSTETRICS REPORT (Signed Final 02/17/2024 17:23) PATIENT INFO: ID #: [id number] : [birth year] (33 yrs)(F) Name: JALEESA JAIMES Visit Date: 02/17/2024 15:14 MERT PERFORMED BY: Attending: Amirah Palma MD Performed By: Tory Littlejohn RDMS Referred By: Tacho Bejarano. 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 Hypertension, gestational without significant O13.9 proteinuria History of previous with pre- O09.299 eclampsia History of previous with O09.899 delivery: 36w0d Obesity in , antepartum O99.210 Supervision of other high risk , O09.90 antepartum: Hx Left salpingectomy VITAL SIGNS: Weight (lb): 300.2 Height: 5'6 BMI: 48.45 EVALUATION: Num Of Fetuses: 1 Heart Rate(bpm): 148 Cardiac Activity: Present & appears normal Presentation: Cephalic Placenta: Anterior, away from cervical os Largest Pocket(cm) 5.47 BIOMETRY: BPD: 57.8 mm G.Age: 23w 5d 23 % OFD: 73.8 mm HC: 210.9 mm G.Age: 23w 1d 4.8 % AC: 185.5 mm G.Age: 23w 2d 15 % FL: 45.2 mm G.Age: 25w 0d 59 % HUM: 42 mm G.Age: 25w 2d 66 % CER: 28.3 mm G.Age: 25w 1d 80 % LV: 4.1 mm CM: 5.6 mm TIB: 40.1 mm G.Age: 25w 2d 71 % CI: 78.3 % 70 - 86 FL/HC: 21.4 % 18.7 - 20.9 HC/AC: 1.14 1.05 - 1.21 FL/BPD: 78.2 % 71 - 87 FL/AC: 24.4 % 20 - 24 Est. FW: 645 gm 1 lb 7 oz 26 % OB HISTORY: : 3 Reynold: 1 Ectopic: 1 Livin GESTATIONAL AGE: U/S Today: 23w 6d DARLENE: 06/09/24 Best: 24w 2d Det. By: Early DARLENE: 06/06/24 Ultrasound (10/30/23) TARGETED ANATOMY: Central Nervous System Calvarium/Cranial V.: Appears normal Intracranial May: Appears normal Cavum: Appears normal Lateral Ventricles: Appears normal Choroid Plexus: Previously seen Cereb./Vermis: Appears normal Cisterna Magna: Appears normal Midline Falx: Previously seen Spine Cervical: Appears normal Thoracic: Appears normal Lumbar: Appears normal Sacral: Appears normal Head/Neck Face: Previously seen Lips: Previously seen Neck: Previously seen Nuchal Fold: Previously seen Nasal Bone: Could Not Document Profile: Not well visualized Orbits/Eyes: Previously seen Mandible: Previously seen Maxilla: Previously seen Thorax Thoracic Contour: Appears normal Lungs: Previously seen 4 Chamber View: Appears normal Cardiac Activity: Appears Normal Cardiac Rhythm: Normal Cardiac Situs: Appears normal Rt Outflow Tract: Appears normal Lt Outflow Tract: Appears normal Aortic Arch: Previously seen Ductal Arch: Previously seen SVC: Appears Normal Interventr. Septum: Appears Normal Cardiac [place]: Appears normal Diaphragm: Previously seen 3 Vessel View: Appears normal 3 V Trachea View: Previously seen IVC: Appears normal Crossing: Could not document Abdomen Ventral Wall: Previously seen Cord Insertion: Previously seen Situs: Previously seen Stomach: Appears normal Liver: Appears normal Lt Kidney: Appears normal Rt Kidney: Appears normal Bladder: Appears normal Extremities Lt Humerus: Previously seen Rt Humerus: Previously seen Lt Forearm: Previously seen Rt Forearm: Previously seen Lt Hand: Previously seen Rt Hand: Previously seen Lt Femur: Previously seen Rt Femur: Previously seen Lt Lower Leg: Previously seen Rt Lower Leg: Previously seen Lt Foot: Previously seen Rt Foot: Previously seen Other Umbilical Cord: Appears normal Genitalia: Previously seen CERVIX UTERUS ADNEXA: Cervix Not visualized due to late gest. age Uterus Gravid uterus Right Ovary Not visualized Left Ovary Not visualized MYOMAS: Site L(cm) W(cm) D(cm) Location Posterior 4.65 5.07 4.83 Anterior rt 1.82 0.97 1.78 Right lateral 2.11 1.94 2.15 Blood Flow RI PI Comments COMMENTS: 1. Ultrasound is not diagnostic for chromosomal abnormalities, will not detect all structural abnormalities, and is not diagnostic for genetic disorders even if multiple exams are performed during a given . 2. anatomic survey is incomplete due to position and maternal body habitus. 3. Images of optimal diagnostic quality could not be obtained. Amirah Palma MD Electronically Signed Final Report 02/17/2024 17:23 IMPRESSION: IMPRESSION: 1. Single intrauterine with expected interval growth from the previous ultrasound. 2. Amniotic fluid assessment (DVP) is normal. 3. Multiple uterine fibroids are seen, see above. RECOMMENDATIONS: 1. Patient is scheduled in 4-6 weeks to complete the anatomic survey. 2. Subsequent follow up or other follow up as clinically determined by primary OB provider unless otherwise specified by MFM. 3. Results forwarded to ordering provider so they can follow up with the patient as necessary. us Zahra Donnelly MD IMG US ORDERABLES Final Res ult documented in this encounter Visit Diagnoses Diagnosis Encounter for follow-up ultrasound of anatomy- Primary Encounter for follow-up ultrasound of anatomy Gestational (-induced) hypertension without significant proteinuria, unspecified trimester Supervision of with other poor reproductive or obstetric history, unspecified trimester Supervision of other high risk pregnancies, unspecified trimester Obesity complicating , unspecified trimester Supervision of high risk , unspecified, unspecified trimester documented in this encounter
--- OUTSIDE RECORDS SUMMARY | 2024-12-29 20:06 | XMS_ITS | Patient Health Record ---
Author Organization [facility] Address [address] [place] [address] Care Team Providers Care Set Up Technician Name Role Phone Killianrek Primary Care Provider [phone] Bayron Valencia Unavailable [phone] Reason For Referral No Information Medications Medication SIG (Take, Route, Fr equency, Duration) Notes Start Date End Date Status Vitamin Act mic Progesterone 100 MG 1 vaginal _insert Va ginal Twice a day Active Immunizations Vaccine Route Administration Date Status Comme nts Varicella (VARIVAX) IM Intramuscular 02/04/2020 Administer ed Varicella (VARIVAX) IM Intramuscular 03/10/2020 Administer ed Social History Tobacco Use: Social History Observation Description Date Details (start date - stop date) Never Smoker NA - NA Tobacco Screen: Question Answer Notes Are you a: never smoker Sexual Hx: Question Answer Notes Had sex in the last 12 months (vaginal, oral, or anal)? Yes with Men only Have you ever had an STD? No Alcohol Screening: Question Answer Notes Did you have a drink contain ing alcohol in the past year? Yes How often did you have a dri nk containing alcohol in the past year? Monthly or less (1 point) How many drinks did you have on a typical day when you were drinking in the past year? 1 or 2 (0 points) How often did you have six o r more drinks on one occasion in the past year? 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 Encounters Encounter Location Date Provider Diagnosis [facility] [address] [place] [address] 12/14/2024 Bayron Valencia Plan Of Treatment No Information Insurance Providers Payer Name Payer Address Payer Phone Subscriber Number Group Number Insured Name Patient Relationship to Insured Coverage Start Date Coverage End Date ANTHEM Primary [address] [place] [phone] [id number] [employer] Self - patient is the insured 9 DENTAL [employer] PPO [address] [place] [address] [id number] [employer] Self - patient is the insured 1 Medical (General) History Medical History History ICD Code ER on 06/03/19 and 1-2 weeks before that but does not know date Surgical History Surgery Date(Month/Year) Adenoidectomy 1995 Left Fallopian tube removed 2011 cholecystectomy Hospitalization History Reason Date(Month/Year) Depression-Gini Dhillon 2006,2007 Surgery 2011
--- OUTSIDE RECORDS SUMMARY | 2024-12-29 20:06 | XMS_ITS | Encounter Summary ---
Author Organization [facility] tem Address [id number] [address] [place] [address] Care Team Providers Care Water Filterer Name Role Phone Unavailable Primary Care Provider Unavailabl e Encounter Details Date Type Department Care Team (Late st Contact Info) Description 11/28/2023 Orders Only Maternal- Medicine at [facility] [address] [place] [phone] Ref Prov, [place] [address] Social History Tobacco Use Types Packs/Day Years Used Date Smoking Tobacco: Never Smokeless Tobacco: Never Alcohol Use Standard Drinks/Week Comments Not Currently 0 (1 standard drink = 0.6 oz pur e alcohol) Childcare Answer Date Recorded Childcare Unknown 10/19/2018 Employment Answer Date Recorded Employment Unknown 10/19/2018 Comments Yes Sex and Gender Information Value Date Recorded Sex Assigned at Not on file Legal Sex Female 2:28 PM EDT Gender Identity Not on file Sexual Orientation Not on file documented as of this encounter Plan of Treatment Not on file documented as of this encounter Procedures Procedure Name Priority Date/Time Associated Diagnosis Comments US PREG LMTD 1 OR MORE FETUS Routine 11/28/2023 10:51 AM EDT documented in this encounter Results * Ultrasound limited 1 or more fetus (11/28/2023 10:51 AM EDT) Anatomical Region Laterality Modality OB-PT ESCORT Ultrasound us Not In System Ref Prov IMG US ORDERABLES Final R esult documented in this encounter Visit Diagnoses Not on filedocumented in this encounter
--- OUTSIDE RECORDS SUMMARY | 2024-12-29 20:07 | XMS_ITS | Encounter Summary ---
Author Organization [facility] Address [address] [facility] [place] [address] Care Team Providers Care Medicaid Nurse Name Role Phone Unavailable Primary Care Provider Unavailabl e Encounter Details Date Type Department Care Team (Late st Contact Info) Description 05/15/2024 Clinisync Result Encounter [facility] External Department Unsolicited Mena Urban PA [address] [place] [address] Social History Tobacco Use Types Packs/Day Years [...] Industry Job Start Date Job End Date [place] Not on file Not on file Not on file documented as of this encounter Plan of Treatment Upcoming Encounters Date Type Department Care Team (Late st Contact Info) Description 02/01/2025 1:30 PM EDT Office Visit [facility] [address] [place] [phone] Mena Urban PA [address] [address] [place], [place] [address] 01/03/2026 2:00 PM EDT Procedure Visit [facility] [place] [facility] [address] [facility] [place] [phone] Tacho Menendez DO [address] [facility] [address] Karen Barron, [place] [address] documented as of this encounter Procedures Procedure Name Priority Date/Time Associated Diagnosis Comments US OB BPP W NON-STRESS 05/15/2024 12:08 AM EST documented in this encounter Results * US OB BPP W NON-STRESS (05/15/2024 12:08 AM EST) Anatomical Region Laterality Modality Other 05/15/2024 12:0 8 AM EST Narrative 05/15/2024 12:11 AM EST [address] [address] Ultrasound Report Signed Patient: JALEESA ARRIETA MR#: [id number] : 1990 Acct:[id number] Age/Sex: 34 / F ADM Date: 05/14/24 Loc: [facility] Attending Dr: Mena Urban Ordering Physician: Mena Urban Date of Service: 05/14/24 Procedure(s): US OB BPP w non-stress Accession Number(s): [id number] cc: Mena Urban; Physician,Non-Staff M.DNikki The [address] [address] Patient Name: JALEESA ARRIETA MRN: [id number] date: 1990 Sex: F Assigned Patient Location: [facility] Current Patient Location: Accession/Order Number: [id number] Exam Date: 05/14/2024 15:09 Report Date: 05/15/2024 00:08 At the request of: MENA URBAN Procedure: US OB BPP w non-stress EXAMINATION: US OB BPP w non-stress HISTORY:H/O PREMATURE DELIVERY Z87.51 COMPARISON: Ultrasound OB biophysical 04/30/2024 TECHNIQUE: Ultrasound biophysical profile was performed in the radiology department. BREATHING MOVEMENTS: 2 GROSS BODY MOVEMENTS: 2 TONE: 2 QUALITATIVE AMNIOTIC FLUID VOLUME: 2 PRESENTATION: CEPHALIC HEART RATE: 159.76 bpm AMNIOTIC FLUID VOLUME: 12.30 cm GESTATIONAL AGE: 36 weeks 5 days US/US OB BPP w non-stress IMPRESSION: Total biophysical profile score: 8 Electronically authenticated by: ADOLPH VILLAREAL Date: 05/15/2024 00:08 Dictated By: Adolph Villareal M.D. Signed By: 05/15/24 0011 DD/ 0008 TD/TT: Freight Booker: Procedure Note Radiology, Radiologist, MD - 05/15/2024 [place] [address] Ultrasound Report Signed Patient: JALEESA ARRIETA NMR#: [id number] : 1990Acct:[id number] Age/Sex: 34 / FADM Date: 05/14/24 Loc: [facility] Attending Dr: Mena Urban Ordering Physician: Mena Urban Date of Service: 05/14/24 Procedure(s): US OB BPP w non-stress Accession Number(s): [id number] cc: Mena Urban; Physician,Non-Staff M.Rony The [place] [address] Patient Name: JALEESA ARRIETA MRN: [id number] date: 1990 Sex: F Assigned Patient Location: [facility] Current Patient Location: Accession/Order Number: [id number] Exam Date: 05/14/2024 15:09 Report Date: 05/15/2024 00:08 At the request of: MENA URBAN Procedure: US OB BPP w non-stress EXAMINATION: US OB BPP w non-stress HISTORY:H/O PREMATURE DELIVERY Z87.51 COMPARISON: Ultrasound OB biophysical 04/30/2024 TECHNIQUE: Ultrasound biophysical profile was performed in the radiology department. BREATHING MOVEMENTS: 2 GROSS BODY MOVEMENTS: 2 TONE: 2 QUALITATIVE AMNIOTIC FLUID VOLUME: 2 PRESENTATION: CEPHALIC HEART RATE: 159.76 bpm AMNIOTIC FLUID VOLUME: 12.30 cm GESTATIONAL AGE: 36 weeks 5 days US/US OB BPP w non-stress IMPRESSION: Total biophysical profile score: 8 Electronically authenticated by: ADOLPH VILLAREAL Date: 05/15/2024 00:08 Dictated By: Adolph Villareal M.D. Signed By:05/15/24 0011 DD/ 0008 TD/TT: Freight Booker: [facility] Final Result documented in this encounter Visit Diagnoses Not on filedocumented in this encounter
--- OUTSIDE RECORDS SUMMARY | 2024-12-29 20:07 | XMS_ITS | Encounter Summary ---
Author Organization [facility] Address [address] [place] [address] Phone Care Team Providers Care Brick Grader Name Role Phone Unavailable Primary Care Provider Unavailabl e Encounter Details Date Type Department Care Team (Late st Contact Info) Description 02/24/[address] [facility] [address] [place] [address] Conversion, Onbase Social History Tobacco Use Types Packs/Day Years Used Date Smoking Tobacco: Never Assessed Comments Unknown Sex and Gender Information Value Date Recorded Sex Assigned at Not on file Legal Sex Female 8:44 PM EST Gender Identity Not on file Sexual Orientation Not on file documented as of this encounter Plan of Treatment Scheduled Orders Name Type Priority Associated Diagnoses Orde r Schedule OUTSIDE LAB SCAN Lab Ordered: 02/24/2020 documented as of this encounter Visit Diagnoses Not on filedocumented in this encounter
--- OUTSIDE RECORDS SUMMARY | 2024-12-29 20:07 | XMS_ITS | Encounter Summary ---
Author Organization [facility] Address [address] [facility] [place] [address] Care Team Providers Care Dairy Husbandry Teacher Name Role Phone Unavailable Primary Care Provider Unavailabl e Encounter Details Date Type Department Care Team (Late Contact Info) Description 12/29/2024 Bamboo flowsheet [facility] [place] [facility] [address] [facility] [place] [phone] Tacho Menendez DO [address] [facility] [address] Karen Barron, [facility] Social History Tobacco Use Types Packs/Day [...] Industry Job Start Date Job End Date [place] Not on file Not on file Not on file documented as of this encounter Plan of Treatment Upcoming Encounters Date Type Department Care Team (Late st Contact Info) Description 02/01/2025 1:30 PM EDT Office Visit MAXINE APONTE [address] [facility] [place] [address] Mena Ann PA [address] [facility] [address] [place], [place] [phone] 01/03/2026 2:00 PM EDT Procedure Visit MAXINE APONTE [address] [facility] [place] [address] Tacho Menendez DO [address] [facility] [address] Karen Barron, [place] [phone] documented as of this encounter Visit Diagnoses Not on filedocumented in this encounter
--- OUTSIDE RECORDS SUMMARY | 2024-12-29 20:07 | XMS_ITS | Encounter Summary ---
Author Organization [facility] Address [address] [place] [address] Phone Care Team Providers Care Salvage Supervisor Name Role Phone Unavailable Primary Care Provider Unavailabl e Encounter Details Date Type Department Care Team (Late st Contact Info) Description 03/29/2020 Orders Only [facility] [address] [place] [address] Conversion, Onbase Social History Tobacco Use Types [...] r Schedule OUTSIDE LAB SCAN Lab Ordered: 03/29/2020 documented as of this encounter Visit Diagnoses Not on filedocumented in this encounter
--- OUTSIDE RECORDS SUMMARY | 2024-12-29 20:07 | XMS_ITS | Clinical Summary ---
Author Organization [facility]gent[facility] tem Address [facility] [id number] [address] [place] [address] Care Team Providers Care Guest Service Host Name Role Phone Unavailable Primary Care Provider Unavailabl e Allergies No known active allergies Medications PNV 19/iron ps,heme/folic/dha ( MV & MIN ORAL) Take 1 tablet by mouth in the morning. Active levothyroxine (SYNTHROID, LEVOTHROID) 50 MCG tablet Take 1 tablet (50 mcg total) by mouth in the morning. Active magnesium oxide (MAGOX) 400 mg tablet Take 1 tablet (400 mg total) by mouth in the morning. Active ondansetron ODT (ZOFRAN ODT) 4 mg disintegrating tablet Dissolve 1 tablet (4 mg total) on tongue every 8 (eight) hours as needed for nausea or vomiting. Active aspirin 81 mg chewable tabletIndications:H istory of pre-eclampsia in prior , currently Chew 1 tablet (81 mg total) and swallow in the morning. 90 tablet 3 Active Active Problems Problem Noted Date Diagnosed Date BMI 45.0-49.9, adult 01/19/2024 History of pre-eclampsia in prior , currently 01/19/2024 Obesity affecting in second trimester 01/19/2024 Family History Medical History Relation Name Comments Diabetes Father Diabetes Maternal Grandfather Heart disease Maternal Grandfather Hypertension Maternal Grandfather Cancer Maternal Grandmother Mental illness Maternal Grandmother Diabetes Mother Hypertension Mother Heart disease Paternal Grandmother Relation Name Status Comments Father Maternal Grandfather Maternal Grandmother Mother Paternal Grandmother Social History Tobacco Use Types Packs/Day Years Used Date Smoking Tobacco: Never Smokeless Tobacco: Never Tobacco Cessation:Counseling Given: Not Answered Alcohol Use Standard Drinks/Week Comments Not Currently [...] to get more. Never True 01/19/2024 Comments No Sex and Gender Information Value Date Recorded Sex Assigned at Not on file Legal Sex Female 2:28 PM EDT Gender Identity Not on file Sexual Orientation Not on file Last Filed Vital Signs Vital Sign Reading Time Taken Comments Blood Pressure 126/69 01/19/2024 2:56 PM EDT Pulse 89 01/19/2024 2:56 PM EDT Temperature - - Respiratory Rate - - Oxygen Saturation - - Inhaled Oxygen Concentration - - Weight 136.2 kg (300 lb 3.2 oz) 01/19/2024 2:56 PM EDT Height 167.6 cm (5' 6 ) 01/19/2024 2:56 PM EDT Body Mass Index 48.45 01/19/2024 2:56 PM EDT Plan of Treatment Health Maintenance Due Date Last Done Comments DTaP,Tdap and Td Vaccines (6 - Tdap) 2002 01/07/1997, 09/03/1993, 01/22/1993, Additional history exists Depression Screening 2003 Adult BMI Follow Up Plan 2009 COVID-19 Vaccine (3 - 2023-2 5 season) 2024 07/19/2021, 06/27/2021 Influenza Vaccine 01/10/2025 03/09/2024, , 03/28/2015, Additional history exists Adult BMI Screening 01/18/2025 01/19/2024 Tobacco Screening 01/18/2025 01/19/2024 Pap Smear 12/22/2026 12/23/2023 Medical Devices Not on file Insurance [employer] MEDICAID
--- OUTSIDE RECORDS SUMMARY | 2024-12-29 20:07 | XMS_ITS | Encounter Summary ---
Author Organization [facility] Address [address] [place] [address] [place] [address] Care Team Providers Care Bulk Station Agent Name Role Phone Unavailable Primary Care Provider Unavailabl e Encounter Details Date Type Department Care Team (Late Contact Info) Description 05/07/2024 Abstract [facility] [address] [address] Emma Mcbride LPN Social History Tobacco [...] Industry Job Start Date Job End Date [employer] Not on file Not on file Not on file documented as of this encounter Plan of Treatment Upcoming Encounters Date Type Department Care Team (Late Contact Info) Description 02/01/2025 1:30 PM EDT Office Visit [facility] APONTE [address] [place] [address] Mena Ann PA [address] [place] [address] 01/03/2026 2:00 PM EDT Procedure Visit [facility] [address] [place] [address] Tacho Menendez DO [address] [place] [address] documented as of this encounter Visit Diagnoses Not on filedocumented in this encounter
--- OUTSIDE RECORDS SUMMARY | 2024-12-29 20:07 | XMS_ITS | Clinical Summary ---
Author Organization [facility] Address [address] [place] [address] Care Team Providers Care Home Aide Name Role Phone Unavailable Primary Care Provider Unavailabl e Allergies No known active allergies Medications fluticasone (Flonase) 50 MCG/ACT nasal spray 02/27/2024 Active MV & Min w/FA-DHA ( Gummies) 0.18-25 MG chewable tabletIndication s:6 weeks follow-up ([facility]) Chew 25 mg Daily 30 tablet 11 07/12/2024 6 Active metFORMIN XR (Glucophage-XR) 500 MG 24 hr tabletIndication s:Insulin resistance Take 1 tablet (500 mg) by mouth in the evening. Take with meals Do not crush, chew, or split. 30 tablet 11 12/29/2024 6 Active Encounters Date Type Department Care Team Description 12/29/2024 1:00 PM EDT Office Visit [facility] [address] [place] [address] Tacho Menendez DO Well woman exam with routine gynecological exam; Weight gain; Insulin resistance 12/29/2024 Bamboo flowsheet [facility] [address] [place] [address] Tacho Menendez DO from Last 3 Months Family History Medical History Relation Name Comments No Known Problems Brother Diabetes Father Diabetes Maternal Grandfather Heart disease Maternal Grandfather Hypertension Maternal Grandfather Breast cancer Maternal Grandmother Mental illness Maternal Grandmother Suicidality Maternal Grandmother Breast cancer Maternal Great-Grandmother Ovarian cancer Maternal Great-Grandmother Diabetes Mother Hypertension Mother MVA Paternal Grandfather Heart disease Paternal Grandmother No Known Problems Sister Colon cancer Neg Hx Relation Name Status Comments Brother Father Alive Maternal Grandfather Maternal Grandmother Maternal Great-Grandmother Mother Alive Paternal Grandfather Paternal Grandmother Sister Social History Tobacco Use Types Packs/Day Years [...] Industry Job Start Date Job End Date [place] Not on file Not on file Not on file Last Filed Vital Signs Vital Sign Reading Time Taken Comments Blood Pressure 110/86 12/29/2024 1:23 PM EDT Pulse - - Temperature - - Respiratory Rate - - Oxygen Saturation - - Inhaled Oxygen Concentration - - Weight 159 kg (351 lb 4 oz) 12/29/2024 1:23 PM E DT Height 167.6 cm (5' 6 ) 08/26/2022 12:00 PM EDT Body Mass Index 56.69 08/26/2022 12:00 PM EDT Plan of Treatment Upcoming Encounters Date Type Department Care Team (Late st Contact Info) Description 02/01/2025 1:30 PM EDT Office Visit [facility] [address] [facility] [place] [address] Mena Ann PA [address] [place] [address] 01/03/2026 2:00 PM EDT Procedure Visit [facility] [place] [facility] [address] [place] [address] Tacho Menendez, [address] [place] [address] Health Maintenance Due Date Last Done Comments Influenza Vaccine (#1) 2025 , 03/11/2023, 03/28/2015, Additional history exists Cervical Cancer Screening 12/22/2028 HPV/Cotest 12/22/2028 09/29/2020, 05/26/2019 Pap Smear 12/22/2028 12/23/2023 Procedures Procedure Name Priority Date/Time Associated Diagnosis Comments PAP SMEAR Routine 12/23/2023 12:00 AM EDT THINPREP TIS PAP REFLEX HPV MRNA E6/E7 (18872) Routine 09/29/2020 from Last 3 Months or Most Recently Relevant to Health Maintenance Results * Pap Smear (12/23/2023 12:00 AM EDT) Swab Cervical swab / Unknown [facility] ORDERABLES Final Re sult EXTERNAL LAB * THINPREP TIS PAP REFLEX HPV MRNA E6/E7 (17735) (09/29/2020) CLINICAL INFORMATION: [facility] LMP: None given [facility] PREV. PAP: 05/2019- NEG [facility] PREV. BX: None given [facility] SOURCE: Cervix [facility] STATEMENT OF ADEQUACY: SEE COMMENT [facility] Comment: Satisfactory for evaluation. Endocervical/transformation zone component absent. INTERPRETATION /RESULT: Negative for intraepithelial lesion or malignancy. [facility] COMMENT: This Pap test has been evaluated with computer assisted technology. [facility] CYTOTECHNOLOGI ST: SEE COMMENT [facility] Comment: MLBoris, CT(ASCP) CT screening location: [facility], [address] [place] [address]. [address]OLOG[address] ST: SEE COMMENT [facility] Comment: LXT, CT(ASCP) CT screening location: [place] [address]. COMMENT SEE COMMENT [facility] EX[facility] Comment: EXPLANATORY NOTE: The Pap is a screening test for cervical cancer. It is not a diagnostic test and is subject to false negative and false positive results. It is most reliable when a satisfactory sample, regularly obtained, is submitted with relevant clinical findings and history, and when the Pap result is evaluated along with historic and current clinical information. 09/29/2020 Reuben Dunlap DO [facility] Final Result [facility] from Last 3 Months or Most Recently Relevant to Health Maintenance Insurance [employer] MEDICAID [place]
--- OUTSIDE RECORDS SUMMARY | 2024-12-29 20:07 | XMS_ITS | Encounter Summary ---
Author Organization [facility] Address [address] [facility] [place] [address] Care Team Providers Care Health Promotion Coordinator Name Role Phone Unavailable Primary Care Provider Unavailabl e Encounter Details Date Type Department Care Team (Late st Contact Info) Description 05/10/2024 Clinisync Result Encounter [facility] External Department Unsolicited Melissa Menendez DO [address] [place] [address] Social History Tobacco Use Types Packs/Day Years [...] Industry Job Start Date Job End Date [employer] Not on file Not on file Not on file documented as of this encounter Plan of Treatment Upcoming Encounters Date Type Department Care Team (Late st Contact Info) Description 02/01/2025 1:30 PM EDT Office Visit [facility] [place] [address] [place] [phone] Mena Ann PA [address] [place], [place] [address] 01/03/2026 2:00 PM EDT Procedure Visit [facility] [address] [place], [id number] Melissa Menendez DO [address] [place], [place] [address] documented as of this encounter Procedures Procedure Name Priority Date/Time Associated Diagnosis Comments US OB BPP W NON-STRESS 05/10/2024 4:35 PM EST documented in this encounter Results * US OB BPP W NON-STRESS (05/10/2024 4:35 PM EST) Anatomical Region Laterality Modality Other 05/10/2024 4:35 PM EST Narrative 05/10/2024 4:38 PM EST [place] [id number] Ultrasound Report Signed Patient: JALEESA ARRIETA MR#: [id number] : 1990 Acct:[id number] Age/Sex: 34 / F ADM Date: 05/08/24 Loc: [facility] Attending Dr: Melissa Menendez D.O. Ordering Physician: Melissa Menendez D.O. Date of Service: 05/08/24 Procedure(s): US OB BPP w non-stress Accession Number(s): [id number] cc: Melissa Menendez D.O.; Physician,Non-Staff M.Rony [address] [address] Patient Name: JALEESA ARRIETA MRN: [id number] date: 1990 Sex: F Assigned Patient Location: [facility] Current Patient Location: Accession/Order Number: [id number] Exam Date: 05/08/2024 13:09 Report Date: 05/10/2024 16:35 At the request of: MELISSA MENENDEZ Procedure: US OB BPP w non-stress EXAMINATION: US OB BPP w non-stress HISTORY:History of premature delivery Z87.51 COMPARISON: Ultrasound OB biophysical 04/30/2024 TECHNIQUE: Ultrasound biophysical profile was performed in the radiology department. BREATHING MOVEMENTS: 2 GROSS BODY MOVEMENTS: 2 TONE: 2 QUALITATIVE AMNIOTIC FLUID VOLUME: 2 PRESENTATION: CEPHALIC HEART RATE: 151.69 bpm AMNIOTIC FLUID VOLUME: 12.93 cm GESTATIONAL AGE: 35 weeks 6 days US/US OB BPP w non-stress IMPRESSION: Total biophysical profile score: 8 Electronically authenticated by: FAM VILLAREAL Date: 05/10/2024 16:35 Dictated By: Fam Villareal M.D. Signed By: 05/10/24 1638 DD/ 163 TD/TT: Care Asst: Procedure Note Radiology, Radiologist, MD - 05/10/2024 [place] [address] Ultrasound Report Signed Patient: JALEESA ARRIETA NMR#: [id number] : 1990Acct:[id number] Age/Sex: 34 / FADM Date: 05/08/24 Loc: [facility] Attending Dr: Melissa Menendez D.O. Ordering Physician: Melissa Menendez D.O. Date of Service: 05/08/24 Procedure(s): US OB BPP w non-stress Accession Number(s): [id number] cc: Melissa Menendez D.O.; Physician,Non-Staff [place] [facility] [address] [address] Patient Name: JALEESA ARRIETA MRN: [id number] date: 1990 Sex: F Assigned Patient Location: [facility] Current Patient Location: Accession/Order Number: [id number] Exam Date: 05/08/2024 13:09 Report Date: 05/10/2024 16:35 At the request of: MELISSA MENENDEZ Procedure: US OB BPP w non-stress EXAMINATION: US OB BPP w non-stress HISTORY:History of premature delivery Z87.51 COMPARISON: Ultrasound OB biophysical 04/30/2024 TECHNIQUE: Ultrasound biophysical profile was performed in the radiology department. BREATHING MOVEMENTS: 2 GROSS BODY MOVEMENTS: 2 TONE: 2 QUALITATIVE AMNIOTIC FLUID VOLUME: 2 PRESENTATION: CEPHALIC HEART RATE: 151.69 bpm AMNIOTIC FLUID VOLUME: 12.93 cm GESTATIONAL AGE: 35 weeks 6 days US/US OB BPP w non-stress IMPRESSION: Total biophysical profile score: 8 Electronically authenticated by: FAM VILLAREAL Date: 05/10/2024 16:35 Dictated By: Fam Villareal M.D. Signed By:05/10/24 1638 DD/ 1635 TD/TT: Care Asst: us Melissa Menendez DO [facility] Final Result documented in this encounter Visit Diagnoses Not on filedocumented in this encounter
--- OUTSIDE RECORDS SUMMARY | 2024-12-29 20:08 | XMS_ITS | CCD ---
Author Organization [facility] Care Team Providers Care Atmospheric Drier Tender Name Role Phone Agustin Patton Unavailable Unavailable Agustin Patton Unavailable Unavailable Bayron Mccarty Unavailable Unavailable Unavailable Unavailable Unavailable Unavailable Unavailable Unavailable [facility] Primary Care Provider DEMETRIUS To Emergency Provider [phone] [address] TACHO MENENDEZ Attending Unavailable DR TACHO MENENDEZ Consulting Unavailable DR TACHO MENENDEZ Admitting Unavailable [facility] Primary Care Provider [phone] Anabella [facility] E Emergency Provider Nicholas Michaels Unavailable [facility] Services Primary Care Provider DO Nicholas Michaels Attending Provider Unavailable Primary Care Provider Unavailabl e Unavailable Primary Care Provider Unavailabl e LATONIA GREENE Attending Unavailable TONYA SENIOR Attending Unavailable [facility] Primary Care Provider Anabella [facility] Marychuy E Emergency Provider [phone] LATONIA GREENE Referring Unavailable LATONIA GREENE Attending Unavailable ANNA ORTIZ Attending Unavailable TONYA SENIOR Referring Unavailable TONYA SENIOR Referring Unavailable TACHO MENENDEZ Referring Unavailable ZAHRA DONNELLY Attending Unavailable TACHO MENENDEZ Referring Unavailable Unavailable Primary Care Provider Unavailabl e [facility] Services Primary Care Provider [phone] DEMETRIUS To Emergency Provider DO Devika De La Garza Emergency Provider [phone] SHON, TACHO R Referring Unavailable SHON, TACHO R Referring Unavailable SHON, TACHO R Referring Unavailable [facility] Primary Care Provider Ck To PA-C Emergency Provider Devika De La Garza DO Emergency Provider Shon DOTacho Attending Provider Unavailable Primary Care Provider Unavailabl e MARISSA, MENA Attending Unavailable SHON, TACHO Attending Unavailable MARISSA, MENA Attending Unavailable SHON, TACHO Attending Unavailable MARISSA, MENA Attending Unavailable SHON, TACHO Attending Unavailable MARISSA, MENA Attending Unavailable SHON, TACHO Attending Unavailable MARISSA, MENA Attending Unavailable SHON, TACHO Attending Unavailable SHON, TACHO Attending Unavailable [facility] Primary Care Provider Herbert Markham PA-C Emergency Provider Ck To Attending Unavailable [facility] Primary Care Unavaila Ck Castrejon Admitting Unavailable Devika De La Garza Admitting Unavailable Devika De La Garza Attending Unavailable [facility] Primary Care Unavaila ble Shon, Tacho Admitting Unavailable Shon, Tacho Attending Unavailable [facility] Services Primary Care Unavaila Herbert Hernandez Admitting Unavailable Herbert Markham Attending Unavailable Medications Current Medications Medication Drug Class(es) Dates Sig (Normalized) Sig (Original) aspirin 81 mg chewable tablet (2 sources) Platelet Aggregation Inhibitor, Nonsteroidal Anti-inflammatory Drug Start: [...] / promethazine hydrochloride 1.25 mg/ml oral solution (4 sources) Phenothiazine, Uncompetitive P-vxzovx-J-aspartate Receptor Antagonist, Sigma-1 Agonist Start: 02-26-2024 take 1 mL by mouth every six hours as needed for cough Promethazine-Dm 6.25-15 mg/5 mL syrup Active 5 ML PO Q6H as needed for cough February 26, 2024 12:00am fluticasone propionate 0.05 mg/actuat metered dose nasal spray (7 sources) Corticosteroid Start: 02-27-2024 fluticasone (Flonase) 50 MCG/ACT nasal spray 02/27/2024 Active Start: 02-26-2024 take 1 spray(s) nasa l route twice daily Fluticasone Propionate (Flonase Allergy Relief) 50 mcg/actuation spray,suspension Active 1 SPRAY INTRANASAL Twice daily February 26, 2024 12:00am administer into each nostril ketorolac tromethamine 10 mg oral tablet (1 source) Nonsteroidal Anti-inflammatory Drug, Cyclooxygenase Inhibitor Start: 10-13-2024 take 1 tablet by mouth every eight hours Ketorolac 10 mg tablet Active 10 MG PO Every 8 hours 15 5 October 13, 2024 12:00am [place] (No Known Home Meds) (3 sources) Start: 10-06-2023 [place] (No Known Home Meds) Active October 06, 2023 12:00am Start: 06-18-2022 [place] (No Kn own Home Meds) Active June 18, 2022 12:00am ondansetron 4 mg disintegrating oral tablet (3 sources) Serotonin-3 Receptor Antagonist take 1 tablet by mouth every eight hours as needed for nausea and vomiting ondansetron ODT (ZOFRAN ODT) 4 mg disintegrating tablet Dissolve 1 tablet (4 mg total) on tongue every 8 (eight) hours as needed for nausea or vomiting. Active PNV 19/iron ps,heme/folic/dha ( MV & MIN ORAL) (3 sources) take 1 tablet by mouth once in the morning PNV 19/iron ps,heme/folic/dha ( MV & MIN ORAL) Take 1 tablet by mouth in the morning. Active MV & Min w/FA-DHA ( Gummies) 0.18-25 MG chewable tablet (20 sources) Start: 07-13-19 End: 07-13-19 MV & Min w/FA-DHA ( Gummies) 0.18-25 MG chewable tablet Indications: 6 weeks follow-up ([facility]) Chew 25 mg Daily 30 tablet 11 07/12/2024 07/12/2025 Active Start: 07-12-2024 End: 07-12-2025 MV & Min w/FA-DHA ( Gummies) 0.18-25 MG chewable tablet Indications: 6 weeks follow-up Chew 25 mg Daily 30 tablet 11 07/12/2024 07/12/2025 Active Start: 11-26-2023 End: 07-12-2024 MV & Min w/FA-DHA ( Gummies) 0.18-25 MG chewable tablet Indications: Missed menses Chew 25 mg Daily 30 tablet 11 11/26/2023 07/12/2024 Discontinued (Reorder) Start: 11-26-2023 End: 11-25-2024 MV & Min w/FA-DHA ( Gummies) 0.18-25 MG chewable tablet Indications: Missed menses Chew 25 mg Daily 30 tablet 11 11/26/2023 11/25/2024 Active Completed/Discontinued Medications Medication Drug Class(es) Dates Sig (Normalized) Sig (Original) acetaminophen 325 mg / oxyCODONE hydrochloride 5 mg oral tablet (9 sources) Opioid Agonist Start: 0 End: 1 take 1 tablet by mouth every four to six hours as needed for pain Oxycodone-Acetamino phen (Percocet) 5-325 mg tablet Discontinued 1 - 2 TAB PO EVERY 4-6 HOURS as needed for pain 14 3 July 20, 2019 July 28, 2020 7:27pm amoxicillin 500 mg oral tablet (9 sources) Penicillin-class Antibacterial Start: 2 End: 2 take 1 tablet by mouth twice daily Amoxicillin 500 mg tablet Discontinued 500 MG PO Twice daily 28 02July 08, 2021 1:00am December 02, 2021 8:17pm amoxicillin 875 mg / clavulanate 125 mg oral tablet (9 sources) Penicillin-class Antibacterial Start: 2 End: 3 [...] / pseudoephedrine hydrochloride 6 mg/ml oral solution (9 sources) alpha-Adrenergic Agonist, Uncompetitive U-astszg-P-asparta te Receptor Antagonist, Sigma-1 Agonist Start: 2 End: 3 take 1 mL by mouth four times daily as needed Brompheniramine-Pse udoeph-Dm (Bromfed Dm) 2-30-10 mg/5 mL syrup Discontinued 5 ML PO Four times daily as needed for cold symptoms December 02, 2021 12:00am June 18, 2022 5:53pm 0.5 ml choriogonadotropin juliana 0.5 mg/ml prefilled syringe (2 sources) Gonadotropin Start: 1 Ovidrel 250 MCG/0.5ML Subcutaneous Injectable INJECT SUBCUTANEOUSLY DIRECTED. Quantity: 1 Refills: 2 Bayron Mccarty MD Start : 19-Jun-2020 Active 0.5 ML Syringe cyclobenzaprine hydrochloride 10 mg oral tablet (9 sources) Muscle Relaxant Start: 7 End: 7 take 1 tablet by mouth three times daily as needed for muscle spasms Cyclobenzaprine 10 mg tablet Discontinued 10 MG PO Three times daily as needed for muscle spasm 9 3 May 02, 2017 1:00am May 04, 2017 1:00am May 05, 2017 1:03am ibuprofen 800 mg oral tablet (20 sources) Nonsteroidal Anti-inflammatory Drug Start: 2 End: 2 take 1 tablet by mouth every six hours as needed for pain Ibuprofen 800 mg tablet Discontinued 800 MG PO Q6H as needed for pain July 08, 2021 1:00am December 02, 2021 8:17pm Start: 07-20-2019 End: 07-28-2020 take 4 tablets by mouth every twenty-four hours for pain Ibuprofen 600 mg tablet Discontinued 600 MG PO EVERY 4-6 HOURS as needed for pain 20 July 20, 2019 12:00am July 28, 2020 7:27pm do not exceed 4 doses in a 24 hour period Start: 05-02-2017 End: 05-07-2017 take 1 tablet by mouth three times daily Ibuprofen 800 mg tablet Discontinued 800 MG PO Three times daily 15 May 02, 2017 1:00am May 06, 2017 1:00am May 07, 2017 1:02am labetalol hydrochloride 100 mg oral tablet (9 sources) beta-Adrenergic [place] Start: 12-31-2020 End: 07-04-2021 Labetalol 100 mg Tablet Discontinued MG TABLET Twice daily December 31, 2020 12:00am July 04, 2021 10:48am Start: 12-31-2020 End: 07-04-2021 Labetalol Discontinued MG [...] Active levothyroxine sodium 0.05 mg oral tablet (20 sources) l-Thyroxine Start: 05-25-2024 End: 07-12-2024 take 0.5 tablet by mouth before mealtime levothyroxine (Synthroid, Levoxyl) 50 MCG tablet Indications: Elevated TSH TAKE 1/2 TABLET BY MOUTH IN THE MORNING BEFORE A MEAL 45 tablet 05/25/2024 07/12/2024 Discontinued (Therapy completed) Start: 11-18-2023 End: 02-16-2024 take 0.5 tablet [...] by mouth Daily 30 tablet 11 10/30/2023 07/12/2024 Discontinued (Therapy completed) omeprazole 20 mg delayed release oral tablet (9 sources) Proton Pump Inhibitor Start: 05-11-2019 End: [...] tablet Discontinued 37.5 MG PO Daily August 07, 2023 12:00am October 06, 2023 5:42pm Start: 06-13-2023 take 1 tablet by vidhay th once daily before breakfast Phentermine HCl [...] 26, 2019 12:58pm July 28, 2020 7:27pm Dmhppadp-Lpe-Ay-Fa () 1 mg Tablet (9 sources) Start: 12-31-2020 End: 07-04-2021 take 1 tablet by mouth once Qcgggifi-Elb-Op-Fa () 1 mg Tablet Discontinued TAB PO December 30, 2020 11:00pm July 04, 2021 9:48am Start: 12-31-2020 End: 07-04-2021 take 1 tablet by mouth once Jhfomvgh-Krp-Vz-F a () 1 mg Tablet Discontinued TAB PO December 31, 2020 12:00am July 04, 2021 10:48am progesterone 100 mg oral capsule (11 sources) Progesterone Start: 07-28-2020 End: 12-31-2020 Progesterone Micronized 100 mg capsule Discontinued 100 MG VAGINAL Twice daily July 28, 2020 12:00am December 31, 2020 9:55am Start: 06-19-2020 take 1 capsule by mo [facility] twice daily Progesterone Micronized 100 MG Oral Capsule TAKE 1 CAPSULE Twice daily insert capsules vaginally Quantity: 30 Refills: 3 Bayron Mccarty MD Start : 19-Jun-2020 Active sennosides, care home 8.6 mg oral tablet (1 source) take 4 tablets by [facility] every twenty-four hours Senna 8.6 MG 4 tablets as needed Orally Once a day Not-Taking/PRN Problems Active Problems Problem Classification Problem Date Documented Date Episodic/Chronic Abdominal pain (20 sources) Nonspecific abdominal pain; Translations: [Unspecified abdominal pain] 08-20-2020 Episodic Acute and chronic tonsillitis (9 sources) Acute tonsillitis; Translations: [Acute tonsillitis, unspecified] 07-08-2021 Episodic Acute bronchitis (9 sources) Acute bacterial bronchitis; Translations: [Acute bronchitis due to other specified organisms] 12-02-2021 Episodic Administrative/social admission (15 sources) Dietary counseling and surveillance; Translations: [Other specified counseling] Episodic Anxiety disorders (1 source) Anxiety disorder, unspecified; Translations: [Anxiety disorder, unspecified type] Onset: 10-09-2023 Chronic Biliary tract disease (9 sources) Biliary calculus; Translations: [Calculus of gallbladder and bile duct without cholecystitis without obstruction] 06-25-2019 Episodic Disorders of lipid metabolism (19 sources) Dyslipidemia; Translations: [Hyperlipidemia, unspecified] Onset: 08-20-2023 Chronic Female infertility (3 sources) Female infertility; Translations: [Female infertility] Chronic Gastritis and duodenitis (9 sources) Gastritis; Translations: [Gastritis, unspecified, without bleeding] 05-11-2019 Episodic Hemorrhage during ; abruptio placenta; placenta previa (15 sources) Bleeding from female genital tract during ; Translations: [Antepartum hemorrhage, unspecified, unspecified trimester] 08-27-2020 Episodic Hypertension complicating ; childbirth and the puerperium (3 sources) Gestational [-induced] hypertension without significant proteinuria, unspecified trimester; Translations: [Gestational [-induced] hypertension without significant proteinuria, third trimester] Onset: 01-19-2024 Episodic Immunizations and screening for infectious disease (1 source) Encounter for screening for human papillomavirus (HPV); Translations: [ENC SCREENING HUMAN PAPILLOMAVIRUS] Onset: 06-05-2022 Episodic Menstrual disorders (5 sources) Irregular periods; Translations: [Missed period] 07-12-2024 Chronic Miscellaneous mental health disorders (1 source) Psychological and behavioral factors associated with disorders or diseases classified elsewhere; Translations: [Psychological factors affecting medical condition] Onset: 10-09-2023 Chronic Nausea and vomiting (9 sources) Nausea and vomiting; Translations: [Nausea with vomiting, unspecified] 06-25-2019 Episodic Nonspecific chest pain (9 sources) Atypical chest pain; Translations: [Other chest [...] trimester] Onset: 04-27-2024 Chronic Other complications of (5 sources) Maternal obesity complicating , childbirth and the puerperium, antepartum; Translations: [Obesity complicating , second trimester] Onset: 01-19-2024 01-19-2024 Chronic Other complications of (9 sources) Abdominal pain in ; Translations: [Other specified related conditions, unspecified trimester] 07-28-2020 Episodic Other complications of (9 sources) Complication of , childbirth and/or the [...] trimester] Onset: 01-19-2024 Episodic Other complications of (9 sources) H/O: premature delivery; Translations: [Personal history of pre-term labor] 02-23-2024 Episodic Other complications of (2 sources) size does not accord with dates; Translations: [Uterine size-date discrepancy, unspecified trimester] 02-23-2024 Episodic Other complications of (7 sources) History of pre-eclampsia; Translations: [Supervision of with other poor reproductive or obstetric history, unspecified trimester] Onset: 01-19-2024 04-22-2024 Episodic Other endocrine disorders (2 sources) Polycystic ovarian syndrome; Translations: [PCOS (polycystic ovarian syndrome)] Chronic Other non-traumatic joint disorders (6 sources) Shoulder joint pain; Translations: [Pain in unspecified shoulder] Onset: 08-20-2023 08-20-2023 Episodic Other non-traumatic joint disorders (1 source) Pain in left knee; Translations: [Pain in left knee] Onset: 10-13-2024 Episodic Other nutritional; endocrine; and metabolic disorders (5 sources) Morbid obesity; Translations: [Morbid (severe) obesity due to excess calories] Chronic Other nutritional; endocrine; and metabolic disorders (6 sources) Morbid (severe) obesity due to excess calories; Translations: [Morbid obesity] Onset: 10-09-2023 Chronic Other nutritional; endocrine; and metabolic disorders (18 sources) Body mass index 40+ - severely [...] Onset: 06-03-2022 Episodic Other upper respiratory infections (4 sources) Sinusitis; Translations: [Chronic sinusitis, unspecified] 02-26-2024 Chronic Residual codes; unclassified (1 source) 21 weeks [...] of ] 05-26-2024 Episodic Sprains and strains (10 sources) Low back strain; Translations: [Strain of [...] Translations: [Cough, unspecified] Onset: 03-05-2024 Viral infection (3 sources) Acute viral disease; Translations: [Viral infection, unspecified] 03-05-2024 Episodic Past or Other Problems Problem Classification Problem Date Documented Date Episodic/Chronic Other complications of (2 sources) Supervision of with other poor reproductive or obstetric history, unspecified trimester; Translations: [Supervision of with other poor reproductive or obstetric history, unspecified trimester] Onset: 01-19-2024 Episodic Other complications of (1 source) Hypothyroidism in ; Translations: [Endocrine, nutritional and metabolic diseases complicating , second trimester] 01-19-2024 Episodic Other upper respiratory infections (18 sources) Pharyngitis; Translations: [Acute pharyngitis, unspecified] Onset: 02-26-2024 07-04-2021 Episodic Residual codes; unclassified (1 source) Gestation period, 21 weeks; Translations: [21 weeks gestation of ] 01-19-2024 Episodic Unclassified (15 sources) Patient encounter status; Translations: [Infertility counseling] 03-01-2024 Unclassified (3 sources) History finding; Translations: [No pertinent past medical history] NEGATED: Highlighted row has not occurred!Residual codes; unclassified (18 sources) Disease Episodic Results Test Name Value Interpretation Reference Range Facility X-ray reportOrdered By: Leopoldo Deras on 10-13-2024 Study report [facility] [place] [address] XRay Report Signed Patient: Jaleesa Arrieta MR#: [id number] : 1990 Acct:[id number] Age/Sex: 34 / F ADM Date: 5 Loc: ER Room: Type: [facility] ER Attending Dr: Copies to: Herbert Markham PA-C~ Ordering Provider: Herbert Markham PA-C Date of Service: 10/13/24 XR/XR knee LT 4V*: Extremity Injury, Lower LEFT KNEE - 4 views CLINICAL HISTORY: Lower extremity injury, medial left knee pain COMPARISON: None FINDINGS: Cfpw-tm-kzxrpzif medial compartment joint space narrowing. Mild patellofemoral compartment degenerative change. No fracture or dislocation. Well-corticated ossific body at level of the proximal fibula XR/XR knee LT 4V* IMPRESSION: MILD DEGENERATIVE CHANGES. NO FRACTURE OR MALALIGNMENT Impression dictated by: Steve Deras M.D. 10/13/2024 2:56 PM Dictation Location: [place] [address] Transcribed By: [facility] 10/13/241455 Dictated By: Steve Deras MD 10/13/24 145 Signed By: 10/13/24 145 [facility] Work Phone: XR knee LT 4V*on 10-13-2024 XR knee LT 4V* [facility] [place] [address] XRay Report Signed Patient: Jaleesa Arrieta MR#: [id number] : 1990 Acct:[id number] Age/Sex: 34 / F ADM Date: 10/13/24 Loc: ER Room: Type: [facility] ER Attending Dr: Copies to: Herbert Markham PA-C Ordering Provider: Herbert Markham PA-C Date of Service: 10/13/24 XR/XR knee LT 4V*: Extremity Injury, Lower LEFT KNEE - 4 views CLINICAL HISTORY: Lower extremity injury, medial left knee pain COMPARISON: None FINDINGS: Yqpt-sf-ahinsmmx medial compartment joint space narrowing. Mild patellofemoral compartment degenerative change. No fracture or dislocation. Well-corticated ossific body at level of the proximal fibula XR/XR knee LT 4V* IMPRESSION: MILD DEGENERATIVE CHANGES. NO FRACTURE OR MALALIGNMENT Impression dictated by: Steve Deras M.D. 10/13/2024 2:56 PM Dictation Location: [place] [address] Transcribed By: [facility] 10/13/24 1456 Dictated By: Steve Deras MD 10/13/241454 Signed By: 10/13/241455 Normal [facility] ALL CBC WITH AUTO DIFFon BASOPHILS ABSOLUTE AUTO 0 [facility] Basophils/100 WBC (Bld) 0.2 % 0.2 - 2.0 % [facility] Eosinophils/100 WBC (Bld) 1.3 % 0.9 - 7.0 % [facility] Erythrocyte distribution width (RBC) [Ratio] 13.2 % 11.0 - 15.0 % [facility] Hematocrit (Bld) [Volume fraction] 33.3 % Low 36.0 - 48.0 % [facility] Hemoglobin (Bld) [Mass/Vol] 11 g/dL Low 12.0 - 16.0 g/dL [facility] IMMATURE GRANULOCYTES ABS AUTO 0.04 High [facility] Immature granulocytes/100 WBC (Bld) 0.4 % 0.0 - 0.5 % [facility] Interpretation and review of laboratory results Abnormal [facility] LYMPHOCYTES ABSOLUTE AUTO 2.6 [facility] Lymphocytes/100 WBC (Bld) 28.3 % 20.5 - 60.0 % [facility] MCH (RBC) [Entitic mass] 29.7 pg 26.7 - 34.0 pg [facility] MCHC (RBC) [Mass/Vol] 33 g/dL 29.9 - 35.2 g/dL [facility] MCV (RBC) [Entitic vol] 90 fL 81.0 - 99.0 fL [facility] MONOCYTES ABSOLUTE AUTO 0.6 [facility] Monocytes/100 WBC (Bld) 6.6 % 1.7 - 12.0 % [facility] NEUTROPHILS ABSOLUTE AUTO 5.7 [facility] Neutrophils/100 WBC (Bld) 63.2 % 43.0 - 75.0 % [facility] Platelet mean volume (Bld) [Entitic vol] 9.4 fL Low 9.5 - 13.5 fL [facility] TBH EO # 0.1 [facility] PLT 278 [facility] RBC 3.7 Low [facility] WBC 9.1 [facility] WITH PLATELET NO DI FFERENTIALon 05-31-2024 Erythrocyte distribution width (RBC) [Ratio] 13.1 % 11.0 - 15.0 % [facility] Hematocrit (Bld) [Volume fraction] 35.2 % Low 36.0 - 48.0 % [facility] Hemoglobin (Bld) [Mass/Vol] 11.7 g/dL Low 12.0 - 16.0 g/dL [facility] Interpretation and review of laboratory results Abnormal [facility] MCH (RBC) [Entitic mass] 29.6 pg 26.7 - 34.0 pg [facility] MCHC (RBC) [Mass/Vol] 33.2 g/dL 29.9 - 35.2 g/dL [facility] MCV (RBC) [Entitic vol] 89.1 fL 81.0 - 99.0 fL [facility] Platelet mean volume (Bld) [Entitic vol] 9.8 fL 9.5 - 13.5 fL [facility] PLT 325 [facility] RBC 3.95 Low [facility] WBC 6.8 [facility] ALL CBC WITH AUTO DIFFon BASOPHILS ABSOLUTE AUTO 0 [facility] Basophils/100 WBC (Bld) 0.3 % 0.2 - 2.0 % [facility] Eosinophils/100 WBC (Bld) 1.8 % 0.9 - 7.0 % [facility] Erythrocyte distribution width (RBC) [Ratio] 13 % 11.0 - 15.0 % [facility] Hematocrit (Bld) [Volume fraction] 36.5 % 36.0 - 48.0 % [facility] Hemoglobin (Bld) [Mass/Vol] 12.4 g/dL 12.0 - 16.0 g/dL [facility] IMMATURE GRANULOCYTES ABS AUTO 0.03 [facility] Immature granulocytes/100 WBC (Bld) 0.4 % 0.0 - 0.5 % [facility] Interpretation and review of laboratory results Abnormal [facility] LYMPHOCYTES ABSOLUTE AUTO 2.2 [facility] Lymphocytes/100 WBC (Bld) 31.4 % 20.5 - 60.0 % [facility] MCH (RBC) [Entitic mass] 30 pg 26.7 - 34.0 pg [facility] MCHC (RBC) [Mass/Vol] 34 g/dL 29.9 - 35.2 g/dL [facility] MCV (RBC) [Entitic vol] 88.4 fL 81.0 - 99.0 fL [facility] MONOCYTES ABSOLUTE AUTO 0.5 [facility] Monocytes/100 WBC (Bld) 7.5 % 1.7 - 12.0 % [facility] NEUTROPHILS ABSOLUTE AUTO 4.1 [facility] Neutrophils/100 WBC (Bld) 58.6 % 43.0 - 75.0 % [facility] Platelet mean volume (Bld) [Entitic vol] 9.6 fL 9.5 - 13.5 fL [facility] TBH EO # 0.1 [facility] TBH PLT 380 [facility] RBC 4.13 Low [facility] WBC 7 [facility] BOX TESTon 05-22-2024 BOX TEST RESULT SEE SCANNED REPORT N [facility] BOX TEST SENT OUT GROUP B STREP [facility] BOX1 [facility] BOX2 05/17/24 [facility] GROUP B STREP [facility] Strep B Culture (PCN Allergi c)on 05-17-2024 Strep B Culture (PCN Allergic) Strep B Only Cult No Group B Beta Streptococcus Isolated 3 Days PERFORMED BY: [place] [address] PATHOLOGIST GAS CUTTING MACHINE OPERATOR APOLINAR POLANCO M.D. Normal [facility] Comment on above: Performed By: #### C USTB(PCN) #### [address] Urinalysis macro (dipstick) panel (U)on 05-17-2024 Bilirubin, UA Negative Negative - 4(70) +++ mg/dL [facility] Blood, UA Negative Negative - 50 Bradley/mcL [facility] Clarity, UA Clear [facility] Color, UA Jessica [facility] Glucose, UA Negative Negative - 2000(110) ++++ mg/dL [facility] Interpretation and review of laboratory results Abnormal [facility] Ketones, UA Negative Negative - 160(16) ++++ mg/dL [facility] Leukocytes, UA Positive Negative - 500+++ Gabby/mcL [facility] Comment on above: small Nitrite, UA Negative Negative - Positive [facility] pH, UA 6.5 5 - 9 [facility] Protein, UA Positive Negative - 1999(20) ++++ mg/dL [facility] Comment on above: 30 Spec Grav, UA 1.03 1 - 1.03 [facility] Urobilinogen, UA 0.2 0.2 - 12 mg/dL [facility] ALL THYROID STIM HORMONEon 1 07-04-2023 TSH Qn 2.422 m[IU]/L [facility] Urinalysis macro (dipstick) panel (U)on 05-03-2024 Bilirubin, UA Negative Negative - 4(70) +++ mg/dL [facility] Blood, UA Negative Negative - 50 Bradley/mcL [facility] Clarity, UA Clear [facility] Color, UA Yellow [facility] Glucose, UA Negative Negative - 1999(110) ++++ mg/dL [facility] Interpretation and review of laboratory results Abnormal [facility] Ketones, UA Negative Negative - 160(16) ++++ mg/dL [facility] Leukocytes, UA Positive Negative - 500+++ Gabby/mcL [facility] Comment on above: small Nitrite, UA Negative Negative - Positive [facility] pH, UA 6 5 - 9 [facility] Protein, UA Negative Negative - 1999(20) ++++ mg/dL [facility] Spec Grav, UA 1.03 1 - 1.03 [facility] Urobilinogen, UA 0.2 0.2 - 12 mg/dL [facility] Urinalysis macro (dipstick) panel (U)on 04-22-2024 Bilirubin, UA Negative Negative - 4(70) +++ mg/dL [facility] Blood, UA Negative Negative - 50 Bradley/mcL [facility] Clarity, UA Clear [facility] Color, UA Yellow [facility] Glucose, UA Negative Negative - 1999(110) ++++ mg/dL [facility] Interpretation and review of laboratory results Abnormal [facility] Ketones, UA Negative Negative - 160(16) ++++ mg/dL [facility] Leukocytes, UA Trace Negative - 500+++ Gabby/mcL [facility] Nitrite, UA Negative Negative - Positive [facility] pH, UA 6 5 - 9 [facility] Protein, UA Positive Negative - 1999(20) ++++ mg/dL [facility] Comment on above: 30 Spec Grav, UA 1.025 1 - 1.03 [facility] Urobilinogen, UA 1.0 0.2 - 12 mg/dL [facility] Urinalysis macro (dipstick) panel (U)on 04-06-2024 Bilirubin, UA Negative Negative - 4(70) +++ mg/dL [facility] Blood, UA Negative Negative - 50 Bradley/mcL [facility] Clarity, UA Clear [facility] Color, UA Yellow [facility] Glucose, UA Negative Negative - 1999(110) ++++ mg/dL [facility] Interpretation and review of laboratory results Abnormal [facility] Ketones, UA Negative Negative - 160(16) ++++ mg/dL [facility] Leukocytes, UA Positive Negative - 500+++ Gabby/mcL [facility] Comment on above: small Nitrite, UA Negative Negative - Positive [facility] pH, UA 7 5 - 9 [facility] Protein, UA Negative Negative - 1999(20) ++++ mg/dL [facility] Spec Grav, UA 1.02 1 - 1.03 [facility] Urobilinogen, UA 0.2 0.2 - 12 mg/dL [facility] Urinalysis macro (dipstick) panel (U)on 03-22-2024 Bilirubin, UA Positive Negative - 4(70) +++ mg/dL [facility] Blood, UA Negative Negative - 50 Bradley/mcL [facility] Clarity, UA Clear [facility] Color, UA Yellow [facility] Glucose, UA Negative Negative - 1999(110) ++++ mg/dL [facility] Interpretation and review of laboratory results Normal [facility] Ketones, UA Positive Negative - 160(16) ++++ mg/dL [facility] Leukocytes, UA Positive Negative - 500+++ Gabby/mcL [facility] Nitrite, UA Negative Negative - Positive [facility] pH, UA 7 5 - 9 [facility] Protein, UA Positive Negative - 1999(20) ++++ mg/dL [facility] Spec Grav, UA 1.025 1 - 1.03 [facility] Urobilinogen, UA 1.0 0.2 - 12 mg/dL [facility] ALL CBC WITH AUTO DIFFon BASOPHILS ABSOLUTE AUTO 0 [facility] Basophils/100 WBC (Bld) 0.5 % 0.2 - 2.0 % [facility] Eosinophils/100 WBC (Bld) 2.4 % 0.9 - 7.0 % [facility] Erythrocyte distribution width (RBC) [Ratio] 13.2 % 11.0 - 15.0 % [facility] Hematocrit (Bld) [Volume fraction] 33.2 % Low 36.0 - 48.0 % [facility] Hemoglobin (Bld) [Mass/Vol] 11.1 g/dL Low 12.0 - 16.0 g/dL [facility] IMMATURE GRANULOCYTES ABS AUTO 0.02 [facility] Immature granulocytes/100 WBC (Bld) 0.3 % 0.0 - 0.5 % [facility] Interpretation and review of laboratory results Abnormal [facility] LYMPHOCYTES ABSOLUTE AUTO 2.1 [facility] Lymphocytes/100 WBC (Bld) 32.5 % 20.5 - 60.0 % [facility] MCH (RBC) [Entitic mass] 30.5 pg 26.7 - 34.0 pg [facility] MCHC (RBC) [Mass/Vol] 33.4 g/dL 29.9 - 35.2 g/dL [facility] MCV (RBC) [Entitic vol] 91.2 fL 81.0 - 99.0 fL [facility] MONOCYTES ABSOLUTE AUTO 0.3 [facility] Monocytes/100 WBC (Bld) 4.6 % 1.7 - 12.0 % [facility] NEUTROPHILS ABSOLUTE AUTO 3.9 [facility] Neutrophils/100 WBC (Bld) 59.7 % 43.0 - 75.0 % [facility] Platelet mean volume (Bld) [Entitic vol] 9.3 fL Low 9.5 - 13.5 fL [facility] TBH EO # 0.2 [facility] TBH PLT 342 [facility] TB RBC 3.64 Low [facility] TBH WBC 6.6 [facility] BioFire Not Detectedon 03-05 BioFire Not Detected Not detected Normal Not Detecte Eboni angulo [facility] Comment on above: Result Comment: This is a duplicate RP2.1 COVID (PCR) result to be used for statistical tracking purpose only. PERFORMED BY: [place] [id number] PATHOLOGIST GAS CUTTING MACHINE OPERATOR LION STANLEY M.D. Performed By: #### R YURY PANEL UPP., BIOFIRECOVNOTDE, QS #### [address] COVID-19 Detected/Not Detect edOrdered By: Devika De La Garza on 03-05-2024 SARS-CoV-2 (COVID-19) RNA YANET+non-probe Ql (Nph) Not detected Not Detecte [facility] Comment on above: This is a duplicate RP2.1 COVID (PCR) result to be used for statistical tracking purpose only. ECG 12 lead ECGon 03-05-2024 ECG 12 lead ECG [facility] [place] [address] [place] [address] Electrocardiograph Report Signed Patient: Jaleesa Arrieta MR#: [id number] [birth year] : 1990 Acct:[id number] Age/Sex: 33 / F ADM Date: 03/05/24 Loc: ER Room: Type: [facility] ER Attending Dr: Ordering Provider: Devika [...] Confirmed by DEVIKA DE LA GARZA DO ([id number]) on 03/06/2024 1:44:25 AM Referred By: Electronically Signed By: DEVIKA DE LA GARZA DO Transcribed By: MUS Signed By Devika De La Garza DO 03/06 0144 Normal [facility] Quick Strepon 03-05-2024 Quick Strep Streptococcus pyogen es Ag [Presence] in Throat by Rapid immunoassay Negative for Group A Strep Antigen Note 1 NOTE 2 Results are those of a screening test. NOTE 3 If clinically indicated please order a culture. NOTE 4 NOTE 5 Reference range = Negative PERFORMED BY: [facility] [address] [place] [address] PATHOLOGIST GAS CUTTING MACHINE OPERATOR LION STANLEY M.D. Normal [facility] Comment on above: Performed By: #### R YURY PANEL UPP., BIOFIRECOVNOTDE, QS #### [facility] [address] Respiratory (Upper) Panel, P CRon 03-05-2024 [...] A H3 Blank Space ------ PERFORMED BY: [place] [address] PATHOLOGIST GAS CUTTING MACHINE OPERATOR LION STANLEY M.D. Normal [facility] Comment on above: Performed By: #### R YURY PANEL UPP., BIOFIRECOVNOTDE, QS #### [address] Respiratory pathogens DNA an d RNA panel - Nasopharynx by YANET with non-probe detectionOrdered By: Devika De La Garza on 03-05-2024 Respiratory pathogens DNA and RNA panel YANET+non-probe (Nph) Respiratory pathogens DNA and RNA panel - Nasopharynx by YANET with non-probe detection [facility] Respiratory pathogens DNA and RNA panel YANET+non-probe (Nph) [facility] Streptococcus pyogenes antig en detectionOrdered By: Devika De La Garza on 03-05-2024 S. pyogenes Ag Ql (Unsp spec) Streptococcus pyogenes antigen detection [facility] S. pyogenes Ag Ql (Unsp spec) [facility] XR chest 1V portableon 03-05 XR chest 1V portable [facility] [place] [address] [place] [address] XRay Report Signed Patient: Jaleesa Arrieta MR#: [id number] [birth year] : 1990 Acct:[id number] Age/Sex: 33 / F ADM Date: 03/05/24 Loc: ER Room: Type: [facility] ER Attending Dr: Copies to: Devika De [...] Priscilla Cunningham M.D.03/05/2024 9:34 PM Dictation Location: [place] [address] Transcribed By: LIDA 03/05/242133 Dictated By: Priscilla Cunningham MD 03/05/242130 Signed By: 03/05/242133 Ashlyn [facility] Quick Strepon 02-26-2024 Quick Strep Streptococcus pyogen es Ag [Presence] in Throat by Rapid immunoassay Negative for Group A Strep Antigen Note 1 NOTE 2 Results are those of a screening test. NOTE 3 If clinically indicated please order a culture. NOTE 4 NOTE 5 Reference range = Negative PERFORMED BY: [place] [address] PATHOLOGIST GAS CUTTING MACHINE OPERATOR LION STANLEY M.D. Normal [facility] Comment on above: Performed By: #### Q S #### [address] Streptococcus pyogenes antig en detectionOrdered By: Ck To on 02-26-2024 S. pyogenes Ag Ql (Unsp spec) Streptococcus pyogenes antigen detection [facility] S. pyogenes Ag Ql (Unsp spec) [facility] Urinalysis macro (dipstick) panel (U)on 02-23-2024 Bilirubin, UA Negative Negative - 4(70) +++ mg/dL [facility] Blood, UA Negative Negative - 50 Bradley/mcL [facility] Clarity, UA Clear [facility] Color, UA Yellow [facility] Glucose, UA Negative Negative - 1999(110) ++++ mg/dL [facility] Interpretation and review of laboratory results Abnormal [facility] Ketones, UA Negative Negative - 160(16) ++++ mg/dL [facility] Leukocytes, UA Positive Negative - 500+++ Gabby/mcL [facility] Comment on above: small Nitrite, UA Negative Negative - Positive [facility] pH, UA 7 5 - 9 [facility] Protein, UA Negative Negative - 1999(20) ++++ mg/dL [facility] Spec Grav, UA 1.02 1 - 1.03 [facility] Urobilinogen, UA 0.2 0.2 - 12 mg/dL [facility] ALL THYROID STIM HORMONEon 0 01-26-2024 TSH Qn 2.645 m[IU]/L [facility] Urinalysis macro (dipstick) panel (U)on 01-20-2024 Bilirubin, UA Negative Negative - 4(70) +++ mg/dL [facility] Blood, UA Negative Negative - 50 Bradley/mcL [facility] Clarity, UA Clear [facility] Color, UA Yellow [facility] Glucose, UA Negative Negative - 1999(110) ++++ mg/dL [facility] Interpretation and review of laboratory results Abnormal [facility] Ketones, UA Negative Negative - 160(16) ++++ mg/dL [facility] Leukocytes, UA Trace Negative - 500+++ Gabby/mcL [facility] Nitrite, UA Negative Negative - Positive [facility] pH, UA 6.5 5 - 9 [facility] Protein, UA Negative Negative - 1999(20) ++++ mg/dL [facility] Spec Grav, UA 1.020 1 - 1.03 [facility] Urobilinogen, UA 0.2 0.2 - 12 mg/dL [facility] CBC without diffon Hematocrit (Bld) [Volume fraction] 34.7 % [facility] Hemoglobin (Bld) [Mass/Vol] 11.8 g/dL [facility] Platelets (Bld) [#/Vol] 350 10*3/uL [facility] Rbc Mcv (Fl) By Automated Count 88.7 [facility] HIV 1&2 AB/AG Screen (P24 AG )on 11-12-2023 HIV 1&2 AB/AG Non-Reactive [facility] Hepatitis B surface antigeno n 11-12-2023 Hepatitis B Surface Antigen Negative [facility] No Panel Informationon 11-11 [facility] Rubella IGG immune statuson 11-12-2023 Rubella immune IgG 1.97 [facility] Syphilis Total(Unknown Syphi lis Status)on 11-12-2023 Syphilis Non-Reactive [facility] TSHon 11-12-2023 Thyroid Stimulating (3Rd Generation) Hormone/ Tsh 5.[address] [facility] Type and screenon 11-12-2023 Abo/Rh(D) Positive [facility] Alanine aminotransferase [En zymatic activity/volume] in Serum or PlasmaOrdered By: Marychuy Kyle on 10-06-2023 ALT [Catalytic activity/Vol] 13 U/L 7-52 [facility] Albumin [Mass/volume] in Ser um or Plasma by Bromocresol green (BCG) dye binding methoOrdered By: Marychuy [facility] on 10-06-2023 Albumin BCG dye [Mass/Vol] 3.8 g/dL 3.5-5.7 [facility] Alkaline phosphatase [Enzyma tic activity/volume] in Serum or PlasmaOrdered By: [facility] on 10-06-2023 ALP [Catalytic activity/Vol] 61 U/L 34-104 [facility] Aspartate aminotransferase [ Enzymatic activity/volume] in Serum or PlasmaOrdered By: Marychuy [facility] on 10-06-2023 AST [Catalytic activity/Vol] 13 U/L 13-39 [facility] Automated epithelial cells c ount in urine sediment (number/area)Ordered By: [facility]chuymargaux [facility] on 10-06-2023 Epithelial cells Auto (Urine sed) [#/Area] 3-4 [HPF] 0-2 [facility] Bacteria [Presence] in Urine by AutomatedOrdered By: Marychuy Kyle on 10-06-2023 Bacteria Auto Ql (U) None seen [HPF] None Seen [facility] Basophils Auto (Bld) [#/Vol] Ordered By: Marychuymargaux [facility] on 10-06-2023 Basophils (Bld) [#/Vol] 0.0 10*3/uL 0.0-0.2 [facility] Basophils/100 WBC Auto (Bld) Ordered By: [facility] on 10-06-2023 Basophils/100 WBC (Bld) 0.6 % . [facility] Bilirubin Test strip Ql (U)O rdered By: Marychuy Kyle on 10-06-2023 Bilirubin Ql (U) Negative Negative [facility] Bilirubin.total [Mass/volume ] in Serum or PlasmaOrdered By: Marychuy Wagnore on 10-06-2023 Bilirubin [Mass/Vol] 0.2 mg/dL 0.3-1.0 [facility] Calcium [Mass/volume] in Ser um or PlasmaOrdered By: Marychuy Jeronimoimore on 10-06-2023 Calcium [Mass/Vol] 9.4 mg/dL 8.6-10.3 [facility] Carbon dioxide, total [Moles /volume] in Serum or PlasmaOrdered By: Marychuy Bullimore on 10-06-2023 CO2 [Moles/Vol] 25.5 mmol/L 21.0-31.0 [facility] Chloride [Moles/volume] in S sondra or PlasmaOrdered By: Marychuy Jeronimoimore on 10-06-2023 Chloride [Moles/Vol] 105 mmol/L 98-107 [facility] Choriogonadotropin.beta subu nit [Units/volume] in Serum or PlasmaOrdered By: Marychuy Kyle on 10-06-2023 HCG.beta subunit Qn 2799.00 m[IU]/mL [facility] Comment on above: Approximate Approxim ate hCG Gestational Age Range (mIU/ml) (weeks)0.2-1 5-50 1-2 50-500 2-3 100-5,000 3-4 500-10,000 4-5 1,000-50,000 5-6 10,000-100,000 6-8 15,000-200,000 8-12 10,000-100,000 Color Auto (U)Ordered By: Mary Kyle on 10-06-2023 Color (U) Yellow Yellow [facility] Creatinine [Mass/volume] in Serum or PlasmaOrdered By: Marychuy Kyle on 10-06-2023 Creatinine [Mass/Vol] 0.63 mg/dL 0.60-1.20 [facility] Eosinophils Auto (Bld) [#/Vo l]Ordered By: Marychuy Kyle on 10-06-2023 Eosinophils (Bld) [#/Vol] 0.1 10*3/uL 0.0-0.45 [facility] Eosinophils/100 WBC Auto (Bl d)Ordered By: Marychuy Kyle on 10-06-2023 Eosinophils/100 WBC (Bld) 0.7 % . [facility] Erythrocyte distribution wid th Auto (RBC) [Ratio]Ordered By: Marychuy Kyle on 10-06-2023 Erythrocyte distribution width (RBC) [Ratio] 13.4 % 11.9-15.3 [facility] Erythrocytes [#/area] in Uri ne sediment by Automated countOrdered By: Marychuy Kyle on 10-06-2023 RBC Auto (Urine sed) [#/Area] 0-1 [HPF] 0-4 [facility] Globulin Calc (S) [Mass/Vol] Ordered By: Marychuy Kyle on 10-06-2023 Globulin (S) [Mass/Vol] 3.6 g/dL [facility] Glucose [Mass/volume] in Ser um or PlasmaOrdered By: Marychuymargaux Kyle on 10-06-2023 Glucose [Mass/Vol] 100 mg/dL 70-100 [facility] Comment on above: ADA recommended refe rence rangeRandom Glucose Reference Range is dependent on time and content of last meal. Glucose of more than 200 mg/dL in a nonstressed, ambulatory subject supports the diagnosis of Diabetes Mellitus. Hematocrit Auto (Bld) [Volum e fraction]Ordered By: Marychuy Kyle on 10-06-2023 Hematocrit (Bld) [Volume fraction] 36.7 % 34.0-46.4 [facility] Hemoglobin [Mass/volume] in BloodOrdered By: Marychuy Kyle on 10-06-2023 Hemoglobin (Bld) [Mass/Vol] 12.6 g/dL 11.8-15.4 [facility] Ketones Auto test strip (U) [Mass/Vol]Ordered By: Marychuy Kyle on 10-06-2023 Ketones (U) [Mass/Vol] Negative Negative [facility] Laboratory - UrinalysisOrder ed By: Marychuy Kyle on 10-06-2023 Hyaline casts LM Ql (Urine sed) 0-8 [LPF] 0-8 [facility] Leukocytes [#/area] in Urine sediment by Automated countOrdered By: Marychuy Kyle on 10-06-2023 WBC Auto (Urine sed) [#/Area] 3-4 [HPF] 0-4 [facility] Leukocytes [#/volume] correc inocencia for nucleated erythrocytes in Blood by Automated counOrdered By: Marychuy Jeronimoimore on 10-06-2023 WBC corrected for nucl RBC Auto (Bld) [#/Vol] 7.4 10*3/uL 3.8-11.6 [facility] Lymphocytes Auto (Bld) [#/Vo l]Ordered By: Marychuy Bullimore on 10-06-2023 Lymphocytes (Bld) [#/Vol] 2.8 10*3/uL 1.00-4.8 [facility] Lymphocytes/100 WBC Auto (Bl d)Ordered By: Marychuy Bullimore on 10-06-2023 Lymphocytes/100 WBC (Bld) 37.6 % . [facility] MCH Auto (RBC) [Entitic mass ]Ordered By: Marychuy Jeronimoimore on 10-06-2023 MCH (RBC) [Entitic mass] 31.0 pg 24.7-34.3 [facility] MCHC Auto (RBC) [Mass/Vol]Or dered By: Marychuy Bullimore on 10-06-2023 MCHC (RBC) [Mass/Vol] 34.4 g/dL 32.0-35.0 [facility] MCV Auto (RBC) [Entitic vol] Ordered By: Marychuy Jeronimoimore on 10-06-2023 MCV (RBC) [Entitic vol] 90.1 fL 80-100 [facility] Monocyte distribution width [Entitic volume] in Blood by AutomatedOrdered By: Maryhcuy Bullimore on 10-06-2023 Monocyte distribution width Auto (Bld) [Entitic vol] 17.37 % 0.00-20.00 [facility] Monocytes Auto (Bld) [#/Vol] Ordered By: Marychuy Bullimore on 10-06-2023 Monocytes (Bld) [#/Vol] 0.5 10*3/uL 0.0-0.8 [facility] Monocytes/100 WBC Auto (Bld) Ordered By: Marychuy Bullimore on 10-06-2023 Monocytes/100 WBC (Bld) 6.7 % . [facility] Neutrophils Auto (Bld) [#/Vo l]Ordered By: Marychuy Jeronimoimore on 10-06-2023 Neutrophils (Bld) [#/Vol] 4.0 10*3/uL 1.8-7.7 [facility] Neutrophils/100 WBC Auto (Bl d)Ordered By: Marychuy Jeronimoimore on 10-06-2023 Neutrophils/100 WBC (Bld) 54.4 % . [facility] Nitrite Test strip Ql (U)Ord ered By: Marychuy Jeronimoimore on 10-06-2023 Nitrite Ql (U) Negative Negative [facility] No Panel InformationOrdered By: Marychuy Kyle on 10-06-2023 Estimated GFR (CKD-EPI) > 60.0 mL/Min [facility] Creatinine Clearance (Chem 180.48 [facility] Nucleated erythrocytes [Pres ence] in Blood by Automated countOrdered By: Marychuy Kyle on 10-06-2023 Nucleated RBC Auto Ql (Bld) 0.2 /100{WBC} 0-0.5 [facility] Platelet mean volume Auto (B ld) [Entitic vol]Ordered By: Marychuy Jeronimoimore on 10-06-2023 Platelet mean volume (Bld) [Entitic vol] 7.5 fL 6.3-10.7 [facility] Platelets Auto (Bld) [#/Vol] Ordered By: Marychuy Jeronimoimore on 10-06-2023 Platelets (Bld) [#/Vol] 367 10*3/uL 150-450 [facility] Potassium [Moles/volume] in Serum or PlasmaOrdered By: Marychuy Jeronimoimore on 10-06-2023 Potassium [Moles/Vol] 4.1 mmol/L 3.5-5.1 [facility] Protein Auto test strip (U) [Mass/Vol]Ordered By: Marychuy Kyle on 10-06-2023 Protein (U) [Mass/Vol] Negative Negative [facility] Protein [Mass/volume] in Ser um or PlasmaOrdered By: Marychuy Jeronimoimore on 10-06-2023 Protein [Mass/Vol] 7.4 g/dL 6.4-8.9 [facility] RBC Auto (Bld) [#/Vol]Ordere d By: Marychuy Kyle on 10-06-2023 RBC (Bld) [#/Vol] 4.08 10*6/uL 3.60-5.00 [facility] Serum or plasma albumin/glob ulin mass ratioOrdered By: Marychuy Kyle on 10-06-2023 Albumin/Globulin [Mass ratio] 1.1 {ratio} [facility] Serum or plasma anion gap de terminationOrdered By: Marychuy Kyle on 10-06-2023 Anion gap [Moles/Vol] 12.6 mmol/L 6.0-15.0 [facility] Sodium [Moles/volume] in Ser um or PlasmaOrdered By: Marychuy Kyle on 10-06-2023 Sodium [Moles/Vol] 139 mmol/L 136-145 [facility] Specific gravity Auto test s trip (U) [Rel density]Ordered By: Marychuy Kyle on 10-06-2023 Specific gravity (U) [Rel density] 1.017 1.001-1.030 [facility] Urea nitrogen [Mass/volume] in Serum or PlasmaOrdered By: Marychuy Kyle on 10-06-2023 Urea nitrogen [Mass/Vol] 7 mg/dL 7-25 [facility] Urine clarity by refractomet ry automatedOrdered By: Marychuy Kyle on 10-06-2023 Clarity Refractometry automated (U) Clear Clear [facility] Urine glucose measurement by automated test strip (mass/volume)Ordered By: Marychuy Kyle on 10-06-2023 Glucose Auto test strip (U) [Mass/Vol] Normal mg/dL Normal [facility] Urine hemoglobin detection b y automated test stripOrdered By: Marychuy Kyle on 10-06-2023 Hemoglobin Auto test strip Ql (U) Negative Negative [facility] Urine leukocyte esterase det ection by automated test stripOrdered By: Marychuy Kyle on 10-06-2023 Leukocyte esterase Auto test strip Ql (U) 1+ Negative [facility] Urobilinogen Auto test strip (U) [Mass/Vol]Ordered By: Marychuy Kyle on 10-06-2023 Urobilinogen (U) [Mass/Vol] Normal mg/dL Normal [facility] WBC Auto (Bld) [#/Vol]Ordere d By: Marychuy Jeronimosariah on 10-06-2023 WBC (Bld) [#/Vol] 7.4 10*3/uL 3.8-11.6 [facility] pH Auto test strip (U)Ordere d By: Marychuy Anabella on 10-06-2023 pH (U) 7.0 [pH] 5.0-9.0 [facility] CNPNon 09-11-2023 LIZ Telephone (MOGEN) -------- JALEESA ARRIETA ([id number]) 1990 F Date Time Provider Department 09/11/23 [...] Date Reviewed: 08/20/2023 Reviewed by: Tonya Senior APRN.BANK MANAGER - Fully Assessed Reason for Visit: Results [...] Encounter Status:Closed by TONYA SENIOR on 09/23/23 [facility] NICOTINE AND METAB, URon URIN ANABASINE QUANT <5 Normal [facility] Comment on above: Order Comment: Speci men Type: URINE SPECIMEN Ordering Facility: [facility] Address: [address] [place] [address] Performed By: #### U ENA #### [facility] CLIA [id number] [address] [place] [address] URIN COTININE QUANT <15 Normal [facility] Comment on above: Order Comment: Speci men Type: URINE SPECIMEN Ordering Facility: [facility] Address: [address] [place] [address] Performed By: #### U NICOT #### [facility] CLIA [id number] [address] [place] [address] URIN NICOTINE QUANT <15 Normal [facility] Comment on above: Order Comment: Speci men Type: URINE SPECIMEN Ordering Facility: [facility] Address: [address] [place] [place] [address] Result Comment: INTE RPRETIVE INFORMATION: Nicotine and Metabolites, Urine, Quantitative Methodology: Quantitative Liquid Chromatography-Tandem Mass Spectrometry Positive cutoff: Nicotine 15 ng/mL Cotinine 15 ng/mL 5-QU-Dvmlplyw 50 ng/mL Anabasine 5 ng/mL For medical [...] developed and its performance characteristics determined by [facility]. It has not been cleared or approved by the [place] Food and Drug Administration. This test was performed in a CLIA certified laboratory and is intended for clinical purposes. Performed By: [facility] [address] [place] [address] Director Employee Safety And Health: Rex Zuleta MD, PhD CLIA Number: [id number] Performed By: #### U NICOT #### [facility] CLIA [id number] [address] [place] [address] URINE 3 [place] COTININE <50 Normal [facility] Comment on above: Order Comment: Speci men Type: URINE SPECIMEN Ordering Facility: [facility] Address: [address] [place], [place] [address] Performed By: #### U NICOT #### [facility] CLIA [id number] [address] [place] [address] TOXICOLOGY SCREEN, ROUTINE U RINEon 09-08-2023 Amphetamines Confirm (U) [Mass/Vol] Negative Normal Negative [facility] Comment on above: Order Comment: Speci men Type: URINE SPECIMEN [facility]ing Facility: [facility] Address: [address] [place] [address] Result Comment: Cuto ff threshold at 1000 ng/mL. Performed By: #### U TOX2 #### [facility] CLIA [id number] [address] [place] [address] [place] BARBITURATES, URINE Negative Normal Negative [facility] Comment on above: Order Comment: Speci men Type: URINE SPECIMEN Ordering Facility: [facility] Address: [address] [place] [address] Result Comment: Cuto ff threshold at 200 ng/mL. Performed By: #### U TOX2 #### [facility] CLIA [id number] [address] [place] [address] [place] BENZODIAZEPINES, UR Negative Normal Negative [facility] Comment on above: Order Comment: Speci men Type: URINE SPECIMEN [facility]ing Facility: [facility] Address: [address] [place] [address] Result Comment: Cuto ff threshold at 200 ng/mL. Performed By: #### U TOX2 #### [facility] CLIA [id number] [address] [place] [address] [place] Cannabinoids Screen Ql (U) Negative Normal Negative [facility] Comment on above: Order Comment: Speci men Type: URINE SPECIMEN Ordering Facility: [facility] Address: [address] [place] [address] Result Comment: Cuto ff threshold at 50 ng/mL. Performed By: #### U TOX2 #### [facility] CLIA [id number] [address] [place] [address] [place] Cocaine Ql (U) Negative Normal Negative [facility] Comment on above: Order Comment: Speci men Type: URINE SPECIMEN [facility]ing Facility: [facility] Address: [address] [place] [address] Result Comment: Cuto ff threshold at 300 ng/mL. Performed By: #### U TOX2 #### [facility] CLIA [id number] [address] [place] [address] [place] Ethanol (U) [Mass/Vol] <11 Normal <11 [facility] Comment on above: Order Comment: Speci men Type: URINE SPECIMEN [facility]ing Facility: [facility] Address: [address] [place] [address] Performed By: #### U TOX2 #### [facility] CLIA [id number] [address] [place] [address] [place] Opiates Screen Ql (U) Negative Normal Negative [facility] Comment on above: Order Comment: Speci men Type: URINE SPECIMEN [facility]ing [facility]: [facility] Address: [address] [place] [address] Result Comment: Cuto ff threshold at 300 ng/mL. Performed By: #### U TOX2 #### [facility] CLIA [id number] [address] [place] [address] [place] oxyCODONE cutoff Screen (U) [Mass/Vol] Negative Normal Negative [facility] Comment on above: Order Comment: Speci men Type: URINE SPECIMEN [facility]ing Facility: [facility] Address: [address] [place] [address] Result Comment: Cuto ff threshold at 100 ng/mL. Performed By: #### U TOX2 #### [facility] CLIA [id number] [address] [place] [address] [place] Phencyclidine Ql (U) Negative Normal Negative [facility] Comment on above: Order Comment: Speci men Type: URINE SPECIMEN Ordering [facility]: [facility] Address: [address] [place] [address] Result Comment: Cuto ff threshold at 25 ng/mL. Performed By: #### U TOX2 #### [facility] CLIA [id number] [address] [place] [address] [place] 25(OH)D3 SerPl-mCncon 2023 25-hydroxyvitamin D3 [Mass/Vol] 11.9 ng/mL Low 31.0-80.0 [facility] Comment on above: Order Comment: Speci men Type: BLOOD SPECIMEN Ordering Facility: [facility] Address: [address] [place] [address] Performed By: #### 2 276-4, 2132-01, 2283-12 #### [facility] CLIA [id number] [address] [place] [address] [place] CBC W Auto Differential pane l (Bld)on 09-05-2023 Basophils (Bld) [#/Vol] 10*3/uL Normal <0.11 [facility] Comment on above: Order Comment: Speci men Type: BLOOD SPECIMEN Ordering [facility]: [facility] Address: [address] [place] [address] Performed By: #### 2 276-4, 2132-01, 2283-12 #### [facility] CLIA [id number] [address] [place] [address] [place] Basophils/100 WBC (Bld) 0.3 % Normal [facility] Comment on above: Order Comment: Speci men Type: BLOOD SPECIMEN Ordering Facility: [facility] Address: [address] [place] [address] Performed By: #### 2 276-4, 2132-01, 2283-12 #### [facility] CLIA [id number] [address] [place] [address] [place] Differential cell count method Nom (Bld) Auto Normal [facility] Comment on above: Order Comment: Speci men Type: BLOOD SPECIMEN Ordering [facility]: [facility] Address: [address] [place] [address] Performed By: #### 2 276-4, 2132-01, 2283-12 #### [facility] CLIA [id number] [address] [place] [address] [place] Eosinophils (Bld) [#/Vol] 0.09 10*3/uL Normal <0.46 [facility] Comment on above: Order Comment: Speci men Type: BLOOD SPECIMEN Ordering Facility: [facility] Address: [address] [place] [address] Performed By: #### 2 276-4, 2132-01, 2283-12 #### [facility] CLIA [id number] [address] [place] [address] [place] Eosinophils/100 WBC (Bld) 1.3 % Normal [facility] Comment on above: Order Comment: Speci men Type: BLOOD SPECIMEN Ordering Facility: [facility] Address: [address] [place] [address] Performed By: #### 2 276-4, 2132-01, 2283-12 #### [facility] CLIA [id number] [address] [place] [address] [place] Erythrocyte distribution width (RBC) [Ratio] 12.6 % Normal 11.5-15.0 [facility] Comment on above: Order Comment: Speci men Type: BLOOD SPECIMEN Ordering [facility]: [facility] Address: [address] [place] [address] Performed By: #### 2 276-4, 2132-01, 2283-12 #### [facility] CLIA [id number] [address] [place] [address] [place] Hematocrit (Bld) [Volume fraction] 38.0 % Normal 36.0-46.0 [facility] Comment on above: Order Comment: Speci men Type: BLOOD SPECIMEN Ordering [facility]: [facility] Address: [address] [place] [address] Performed By: #### 2 276-4, 2132-01, 2283-12 #### [facility] CLIA [id number] [address] [place] [address] [place] Hemoglobin (Bld) [Mass/Vol] 12.8 g/dL Normal 11.5-15.5 [facility] Comment on above: Order Comment: Speci men Type: BLOOD SPECIMEN Ordering [facility]: [facility] Address: [address] [place] [address] Performed By: #### 2 276-4, 2132-01, 2283-12 #### [facility] CLIA [id number] [address] [place] [address] [place] Immature granulocytes (Bld) [#/Vol] 10*3/uL Normal <0.10 [facility] Comment on above: Order Comment: Speci men Type: BLOOD SPECIMEN Ordering [facility]: [facility] Address: [address] [place] [address] Performed By: #### 2 276-4, 2132-01, 2283-12 #### [facility] CLIA [id number] [address] [place] [address] [place] Immature granulocytes/100 WBC (Bld) 0.1 % Normal [facility] Comment on above: Order Comment: Speci men Type: BLOOD SPECIMEN Ordering [facility]: [facility] Address: [address] [place] [address] Performed By: #### 2 276-4, 2132-01, 2283-12 #### [facility] CLIA [id number] [address] [place] [address] [place] Lymphocytes (Bld) [#/Vol] 3.49 10*3/uL Normal 1.00-4.00 [facility] Comment on above: Order Comment: Speci men Type: BLOOD SPECIMEN Ordering [facility]: [facility] Address: [address] [place] [address] Performed By: #### 2 276-4, 2132-01, 2283-12 #### [facility] CLIA [id number] [address] [place] [address] [place] Lymphocytes/100 WBC (Bld) 48.6 % Normal [facility] Comment on above: Order Comment: Speci men Type: BLOOD SPECIMEN Ordering [facility]: [facility] Address: [address] [place] [address] Performed By: #### 2 276-4, 9, 2283-12 #### [facility] CLIA [id number] [address] [place] [address] [place] MCH (RBC) [Entitic mass] 30.0 pg Normal 26.0-34.0 [facility] Comment on above: Order Comment: Speci men Type: BLOOD SPECIMEN Ordering [facility]: [facility] Address: [address] [place] [address] Performed By: #### 2 276-4, 2132-01, 2283-12 #### [facility] CLIA [id number] [address] [place] [address] [place] MCHC (RBC) [Mass/Vol] 33.7 g/dL Normal 30.5-36.0 [facility] Comment on above: Order Comment: Speci men Type: BLOOD SPECIMEN Ordering [facility]: [facility] Address: [address] [place] [address] Performed By: #### 2 276-4, 2132-01, 2283-12 #### [facility] CLIA [id number] [address] [place] [address] [place] MCV (RBC) [Entitic vol] 89.2 fL Normal 80.0-100.0 [facility] Comment on above: Order Comment: Speci men Type: BLOOD SPECIMEN Ordering [facility]: [facility] Address: [address] [place] [address] Performed By: #### 2 276-4, 2132-01, 2283-12 #### [facility] CLIA [id number] [address] [place] [address] [place] Monocytes (Bld) [#/Vol] 0.48 10*3/uL Normal <0.87 [facility] Comment on above: Order Comment: Speci men Type: BLOOD SPECIMEN Ordering Facility: [facility] Address: [address] [place] [address] Performed By: #### 2 276-4, 2132-01, 2283-12 #### [facility] CLIA [id number] [address] [place] [address] [place] Monocytes/100 WBC (Bld) 6.7 % Normal [facility] Comment on above: Order Comment: Speci men Type: BLOOD SPECIMEN Ordering Facility: [facility] Address: [address] [place] [address] Performed By: #### 2 276-4, 2132-01, 2283-12 #### [facility] CLIA [id number] [address] [place] [address] [place] Neutrophils (Bld) [#/Vol] 3.09 10*3/uL Normal 1.45-7.50 [facility] Comment on above: Order Comment: Speci men Type: BLOOD SPECIMEN Ordering [facility]: [facility] Address: [address] [place] [address] Performed By: #### 2 276-4, 2132-01, 2283-12 #### [facility] CLIA [id number] [address] [place] [address] [place] Neutrophils/100 WBC (Bld) 43.0 % Normal [facility] Comment on above: Order Comment: Speci men Type: BLOOD SPECIMEN Ordering [facility]: [facility] Address: [address] [place] [address] Performed By: #### 2 276-4, 2132-01, 2283-12 #### [facility] CLIA [id number] [address] [place] [address] [place] Nucleated RBC (Bld) [#/Vol] 10*3/uL Normal <0.01 [facility] Comment on above: Order Comment: Speci men Type: BLOOD SPECIMEN Ordering [facility]: [facility] Address: [address] [place] [address] Performed By: #### 2 276-4, 2132-01, 2283-12 #### [facility] CLIA [id number] [address] [place], [place] [id number] [place] Nucleated RBC/100 WBC (Bld) [Ratio] 0.0 /100 WBC Normal [facility] Comment on above: Order Comment: Speci men Type: BLOOD SPECIMEN Ordering [facility]: [facility] Address: [address] [place] [address] Performed By: #### 2 276-4, 2132-01, 2283-12 #### [facility] CLIA [id number] [address] [place] [address] [place] Platelet mean volume (Bld) [Entitic vol] 9.2 fL Normal 9.0-12.7 [facility] Comment on above: Order Comment: Speci men Type: BLOOD SPECIMEN Ordering [facility] Address: [address] [place] [address] Performed By: #### 2 276-4, 2132-01, 2283-12 #### [facility] CLIA [id number] [address] [place] [address] [place] Platelets (Bld) [#/Vol] 361 10*3/uL Normal 150-400 [facility] Comment on above: Order Comment: Speci men Type: BLOOD SPECIMEN Ordering [facility] Address: [address] [place] [address] Performed By: #### 2 276-4, 2132-01, 2283-12 #### [facility] CLIA [id number] [address] [place] [address] [place] RBC (Bld) [#/Vol] 4.26 10*6/uL Normal 3.90-5.20 [facility] Comment on above: Order Comment: Speci men Type: BLOOD SPECIMEN Ordering [facility]: [facility] Address: [address] [place] [address] Performed By: #### 2 276-4, 9, 2283-12 #### [facility] CLIA [id number] [address] [place] [address] [place] WBC (Bld) [#/Vol] 7.18 10*3/uL Normal 3.70-11.00 [facility] Comment on above: Order Comment: Speci men Type: BLOOD SPECIMEN Ordering [facility] Address: [address] [place] [address] Performed By: #### 2 276-4, 9, 2283-12 #### [facility] CLIA [id number] [address] [place] [address] [place] Comprehensive metabolic 2000 panelon 09-05-2023 Albumin [Mass/Vol] 4.0 g/dL Normal 3.9-4.9 [facility] Comment on above: Order Comment: Speci men Type: BLOOD SPECIMEN Ordering Facility: [facility] Address: [address] [place] [address] Performed By: #### 2 4323-8 #### [facility] CLIA [id number] [address] [place] [address] ALP [Catalytic activity/Vol] 91 U/L Normal 34-123 [facility] Comment on above: Order Comment: Speci men Type: BLOOD SPECIMEN Order[facility] Address: [address] [place] [address] Performed By: #### 2 4323-8 #### [facility] CLIA [id number] [address] [place] [address] ALT [Catalytic activity/Vol] 15 U/L Normal 7-38 [facility] Comment on above: Order Comment: Speci men Type: BLOOD SPECIMEN Order[facility] Address: [address] [place] [address] Performed By: #### 2 4323-8 #### [facility] CLIA [id number] [address] [place] [address] Anion gap [Moles/Vol] 10 mmol/L Normal 9-18 [facility] Comment on above: Order Comment: Speci men Type: BLOOD SPECIMEN Ordering Facility: [facility] Address: [address] [place], [place] [address] Performed By: #### 2 4323-8 #### [facility] CLIA [id number] [address] [place] [address] AST [Catalytic activity/Vol] 13 U/L Normal 13-35 [facility] Comment on above: Order Comment: Speci men Type: BLOOD SPECIMEN Order[facility] Address: [address] [place] [address] Performed By: #### 2 4323-8 #### [facility] CLIA [id number] [address] [place] [address] Bilirubin [Mass/Vol] 0.3 mg/dL Normal 0.2-1.3 [facility] Comment on above: Order Comment: Speci men Type: BLOOD SPECIMEN Order[facility] Address: [address] [place] [address] Performed By: #### 2 4323-8 #### [facility] CLIA [id number] [address] [place] [address] Calcium [Mass/Vol] 9.5 mg/dL Normal 8.5-10.2 [facility] Comment on above: Order Comment: Speci men Type: BLOOD SPECIMEN Ordering Facility: [facility] Address: [address] [place], [place] [address] Performed By: #### 2 4323-8 #### [facility] CLIA [id number] [address] [place] [address] Chloride [Moles/Vol] 106 mmol/L High 97-105 [facility] Comment on above: Order Comment: Speci men Type: BLOOD SPECIMEN Ordering Facility[facility] Address: [address] [id number] Performed By: #### 2 4323-8 #### [facility] CLIA [id number] [address] [place] [address] CO2 [Moles/Vol] 26 mmol/L Normal 22-30 [facility] Comment on above: Order Comment: Speci men Type: BLOOD SPECIMEN Ordering Facility: [facility] Address: [address] [place] [address] Performed By: #### 2 4323-8 #### [facility] CLIA [id number] [address] [place] [address] Creatinine [Mass/Vol] 0.75 mg/dL Normal 0.58-0.96 [facility] Comment on above: Order Comment: Speci men Type: BLOOD SPECIMEN Order[facility] Address: [address] [place] [address] Performed By: #### 2 4323-8 #### [facility] CLIA [id number] [address] [place] [address] Creatinine and Glomerular filtration rate.predicted panel (S/P/Bld) 109 mL/min/1.73m??? Normal >=60 [facility] Comment on above: Order Comment: Speci men Type: BLOOD SPECIMEN Order[facility] Address: [address] [place] [address] Result Comment: Stephani mated Glomerular Filtration Rate [...] GFR. Performed By: #### 2 4323-8 #### [facility] CLIA [id number] [address] [place] [address] Glucose [Mass/Vol] 104 mg/dL High 74-99 [facility] Comment on above: Order Comment: Speci men Type: BLOOD SPECIMEN Ordering Facility: [facility] Address: [address] [place] [address] Result Comment: The [place] Diabetes Association (ADA) provides guidance for cutoff [...] Standards of Medical Care in Diabetes 2016, Canadian Diabetes Association. Diabetes Care. 2016.39(Suppl 1). Performed By: #### 2 4323-8 #### [facility] CLIA [id number] [address] [place] [address] Potassium [Moles/Vol] 4.2 mmol/L Normal 3.7-5.1 [facility] Comment on above: Order Comment: Speci men Type: BLOOD SPECIMEN Order[facility] Address: [address] [place] [address] Performed By: #### 2 4323-8 #### [facility] CLIA [id number] [address] [place] [address] Protein [Mass/Vol] 7.4 g/dL Normal 6.3-8.0 [facility] Comment on above: Order Comment: Speci men Type: BLOOD SPECIMEN Ordering Facility[facility] Address: [address] [place] [address] Performed By: #### 2 4323-8 #### [facility] CLIA [id number] [address] [place] [address] Sodium [Moles/Vol] 142 mmol/L Normal 136-144 [facility] Comment on above: Order Comment: Speci men Type: BLOOD SPECIMEN Ordering Facility: [facility] Address: [address] [place] [address] Performed By: #### 2 4323-8 #### [facility] CLIA [id number] [address] [place] [address] Urea nitrogen [Mass/Vol] 12 mg/dL Normal 7-21 [facility] Comment on above: Order Comment: Speci men Type: BLOOD SPECIMEN Order[facility] Address: [address] [place] [address] Performed By: #### 2 4323-8 #### [facility] CLIA [id number] [address] [place] [address] Ferritin SerPl-mCncon 2023 Ferritin [Mass/Vol] 86.7 ng/mL Normal 14.7-205.1 [facility] Comment on above: Order Comment: Speci men Type: BLOOD SPECIMEN Order[facility] Facility[facility] Address: [address] [place] [address] Performed By: #### 2 276-4, 9, 2283-12 #### [facility] CLIA [id number] [address] [place] [address] [place] Folate SerPl-mCncon 09-05-19 Folate [Mass/Vol] 12.0 ng/mL Normal >4.7 [facility] Comment on above: Order Comment: Speci men Type: BLOOD SPECIMEN Order[facility]: [facility] Address: [address] [place] [address] Performed By: #### 2 276-4, 2132-01, 2283-12 #### [facility] CLIA [id number] [address] [place] [address] [place] H. pylori IgG IA Qlon 2023 H. PYLORI IGG, QUAL Negative Normal Negative [facility] Comment on above: Order Comment: Speci men Type: BLOOD SPECIMEN Ordering Facility: [facility] Address: [address] [place] [address] Result Comment: Cash ot exclude H. pylori infection if the specimen collected 3-4 weeks after onset of symptoms. Performed By: #### 2 276-4, 2132-9, 2284-8 #### [facility] CLIA [id number] [address] [place] [address] [place] HbA1c (Bld)on 09-05-2023 Average glucose Estimated from glycated hemoglobin (Bld) [Mass/Vol] 108 mg/dL Normal [facility] Comment on above: Order Comment: Laury men Type: BLOOD SPECIMEN Order[facility]: [facility] Address: [address] [place] [address] Result Comment: eAG: (Estimated average glucose) is a calculated value from HgbA1c and is pharmacy services representative of the average blood glucose level in the last 2-3 month period. Performed By: #### 5 5454-3 #### [facility] CLIA [id number] [address] [place] [address] [place] HbA1c (Bld) [Mass fraction] 5.4 % Normal 4.3-5.6 [facility] Comment on above: Order Comment: Laury bradshaw Type: BLOOD SPECIMEN Order[facility] Facility: [facility] Address: [address] [place] [address] Result Comment: Amer [place] Diabetes Association guidelines indicate that patients with HgbA1c in the range 5.7-6.4% are at increased risk for development of diabetes, and intervention by lifestyle modification may be beneficial. HgbA1c greater or equal to 6.5% is considered diagnostic of diabetes. Performed By: #### 5 5454-3 #### [facility] CLIA [id number] [address] [place] [address] [place] Iron and Iron binding capaci ty panelon 09-05-2023 Iron [Mass/Vol] 94 ug/dL Normal 41-186 [facility] Comment on above: Order Comment: Laury bradshaw Type: BLOOD SPECIMEN Order[facility] Address: [address] [place] [address] Performed By: #### 5 0190-8, 3016-3, 99114-4 #### [facility] CLIA [id number] [address] [place] [address] [place] #### 51967-4 #### [facility] CLIA [id number] [address] [place], [place] [address] [place] [facility] CLIA [id number] [address] [place] [address] Iron binding capacity [Mass/Vol] 310 ug/dL Normal 232-386 [facility] Comment on above: Order Comment: Speci men Type: BLOOD SPECIMEN Ordering Facility[facility] Address: [address] [place] [address] Performed By: #### 5 0190-8, 3016-3, 41137-7 #### [facility] CLIA [id number] [address] [place] [address] [place] [place] #### 37309-7 #### [facility] CLIA [id number] [address] [place], [place] [id number] [place] [facility] CLIA [id number] [address] [place], [place] [id number] Iron/TIBC [Molar ratio] 30.3 % Normal 15.0-57.0 [facility] Comment on above: Order Comment: Speci men Type: BLOOD SPECIMEN Ordering Facility: [facility] Address: [address] [place] [address] Performed By: #### 5 0190-8, 3016-3, 79992-7 #### [facility] CLIA [id number] [address] [place], [place] [id number] [place] #### 11956-4 #### [facility] CLIA [id number] [address] [place], [place] [id number] [place] [facility] CLIA [id number] [address] [place] [address] 19077 Lipid 1996 panelon 4 Cholesterol [Mass/Vol] 179 mg/dL Normal <200 [facility] Comment on above: Order Comment: Speci men Type: BLOOD SPECIMEN Ordering Facility: [facility] Address: [address] [place] [address] Result Comment: <200 mg/dL, Desirable 200-239 mg/dL, Borderline high >239 mg/dL, High Performed By: #### 2 276-4, 2132-01, 2283-12 #### [facility] CLIA [id number] [address] [place] [address] [place] Cholesterol in HDL [Mass/Vol] 45 mg/dL Normal >39 [facility] Comment on above: Order Comment: Laury men Type: BLOOD SPECIMEN Ordering Facility: [facility] Address: [address] [place] [address] Result Comment: 40-5 9 mg/dL, Acceptable >59 mg/dL, High: Negative risk factor for coronary heart disease <40 mg/dL, Low: Positive risk factor for coronary heart disease Performed By: #### 2 276-4, 2132-01, 2283-12 #### [facility] CLIA [id number] [address] [place] [address] [place] Cholesterol in LDL [Mass/Vol] 119 mg/dL High <100 [facility] Comment on above: Order Comment: Abbii augustine Type: BLOOD SPECIMEN Ordering Facility: [facility] Address: [address] [place] [address] Result Comment: <100 mg/dL, Optimal 100-129 mg/dL, Near optimal/above optimal 130-159 mg/dL, Borderline high 160-189 mg/dL, High >189 mg/dL, Very high Secondary prevention optimal LDL Cholesterol levels are recommended to be < 70 mg/dL Performed By: #### 2 276-4, 2132-01, 2283-12 #### [facility] CLIA [id number] [address] [place] [address] [place] Cholesterol in LDL/Cholesterol in HDL [Mass ratio] 2.64 {ratio} High <2.54 [facility] Comment on above: Order Comment: Laury bradshaw Type: BLOOD SPECIMEN Ordering Facility: [facility] Address: [address] [place] [address] Result Comment: Belinda degroot: 1. National Cholesterol Education Program ATP III Guideline At-A-Glance Quick Desk Reference: National Heart, Lung, and Blood [place]. National Institutes of Health. 2001: NIH Publication No. 01-3305. 2. An International Atherosclerosis Society position paper: global recommendations for the management of dyslipidemia: executive summary, Atherosclerosis. 2014: 232(2):410-413. Performed By: #### 2 276-4, 2132-01, 2283-12 #### [facility] CLIA [id number] [address] [place] [address] [place] Cholesterol in VLDL [Mass/Vol] 15 mg/dL Normal <30 [facility] Comment on above: Order Comment: Laury augustine Type: BLOOD SPECIMEN Ordering Facility: [facility] Address: [address] [place] [address] Performed By: #### 2 276-4, 2132-01, 2283-12 #### [facility] CLIA [id number] [address] [place] [address] [place] Cholesterol non HDL [Mass/Vol] 134 mg/dL High <130 [facility] Comment on above: Order Comment: Laury augustine Type: BLOOD SPECIMEN Ordering Facility: [facility] Address: [address] [place] [address] Result Comment: <130 mg/dL, Optimal 130-159 mg/dL, Near optimal/above optimal 160-189 mg/dL, Borderline high 190-219 mg/dL, High >219 mg/dL, Very high Secondary prevention optimal non HDL Cholesterol levels are recommended to be <100 mg/dL Performed By: #### 2 276-4, 2132-01, 2283-12 #### [facility] CLIA [id number] [address] [place] [address] [place] Cholesterol.total/Cho lesterol in HDL [Mass ratio] 3.98 {ratio} Normal <5.10 [facility] Comment on above: Order Comment: Speci men Type: BLOOD SPECIMEN Ordering Facility: [facility] Address: [address] [place] [address] Performed By: #### 2 276-4, 2132-01, 2283-12 #### [facility] CLIA [id number] [address] [place] [address] [place] FASTING TIME 12 hrs Normal [facility] Comment on above: Order Comment: Speci men Type: BLOOD SPECIMEN Ordering Facility: [facility] Address: [address] [place] [address] Performed By: #### 2 276-4, 2132-01, 2283-12 #### [facility] CLIA [id number] [address] [place] [address] [place] Triglyceride [Mass/Vol] 74 mg/dL Normal <150 [facility] Comment on above: Order Comment: Speci men Type: BLOOD SPECIMEN Ordering Facility: [facility] Address: [address] [place] [address] Result Comment: <150 mg/dL, Normal 150-199 mg/dL, Borderline high 200-499 mg/dL, High >499 mg/dL, Very high Performed By: #### 2 276-4, 2132-01, 2283-12 #### [facility] CLIA [id number] [address] [place] [address] [place] NT-proBNP [facility] 09-04 Natriuretic peptide.B prohormone N-Terminal [Mass/Vol] 48 pg/mL Normal <125 [facility] Comment on above: Order Comment: Speci men Type: BLOOD SPECIMEN Ordering Facility: [facility] Address: [address] [place] [address] Performed By: #### 2 276-4, 2132-01, 2283-12 #### [facility] CLIA [id number] [address] [place] [address] [place] TSH SerPl-aCncon 09-05-2023 TSH Qn 6.440 m[IU]/L High 0.270-4.200 [facility] Comment on above: Order Comment: Laury bradshaw Type: BLOOD SPECIMEN Ordering Facility: [facility] Address: [address] [place] [address] Result Comment: If t he patient is , TSH reference range varies by gestational period: First Trimester (weeks 9-12): 0.180-2.990 mIU/L Second Trimester: 0.110-3.980 mIU/L Third Trimester: 0.480-4.710 mIU/L Seth Crews et al. A Practical Approach for the Verifications and Determination of Site- and Trimester-Specific Reference Intervals for Thyroid Function tests in . Thyroid, 2019:29:3:412-420. Zhang Ybarra, et al. 2017 Guidelines of the [place] Thyroid Association for the Diagnosis and Management of Thyroid Disease during and the . Thyroid, 2017:27:3:315-389. Performed By: #### 2 276-4, 2132-9, 2284-8 #### [facility] CLIA [id number] [address] [place], [place] [address] [place] [address] [place] VITAMIN B1 (THIAMINE), WHOLE BLOODon 09-05-2023 Thiamine (Bld) [Moles/Vol] 179.2 nmol/L Normal 84.3-213.3 [facility] Comment on above: Order Comment: Laury bradshaw Type: BLOOD SPECIMEN Ordering Facility: [facility] Address: [address] [place] [address] Result Comment: This assay measures the concentration of thiamine diphosphate (TDP), the primary active form of vitamin B1. Approximately 90 percent of vitamin B1 present in whole blood is TDP. Thiamine and thiamine monophosphate, which comprise the remaining 10 percent, are not measured. This test was developed and its performance characteristics determined by [facility]'s [facility] Pathology and Laboratory Medicine [place] ([facility]). It has not been cleared or approved by the FDA. [facility] is regulated under CLIA as qualified to perform high-complexity testing. This test is used for clinical purposes. It should not be regarded as investigational or for research. Performed By: #### B 1WB #### [facility] CLIA [id number] [address] [place] [address] [place] Vit B12 SerPl-mCncon 024 Cobalamin (Vitamin B12) [Mass/Vol] 612 pg/mL Normal 232-1245 [facility] Comment on above: Order Comment: Speci men Type: BLOOD SPECIMEN Ordering [facility] Address: [address] [place] [address] Performed By: #### 2 276-4, 2132-9, 2284-8 #### [facility] CLIA [id number] [address] [place] [address] [place] Glucose - FINGER STICKon Glucose [Mass/Vol] 5.4 mg/dL [employer] Other PAP ACOG PANEL 2: 30 to 65on 06-10-2022 . . [facility] Comment on above: Result Comment: Perf ormed at: WB Performed By: #### 4 [id number] #### [facility] [address] [place] [address] Dr. Sachin Coates Age Gdln ACOG Testing - [facility] Comment on above: Performed By: #### 4 [id number] #### [facility] [address] [place] [address] Dr. Sachin Coates DIAGNOSIS: Comment [facility] Comment on above: Result Comment: NEGA TIVE FOR INTRAEPITHELIAL LESION OR MALIGNANCY. CELLULAR CHANGES ASSOCIATED WITH INFLAMMATION ARE PRESENT. THIS SPECIMEN WAS RESCREENED PART OF OUR CERTIFICATION OFFICER PROGRAM. Performed at: WB Performed By: #### 4 [id number] #### [facility] [address] [place] [address] Dr. Sachin Coates HPV Aptima Negative [facility] Comment on above: Result Comment: This nucleic acid amplification test detects fourteen high-risk HPV types (16,18,31,33,35,39,45,51,52,56,58,59,66,68) without differentiation. Performed at: =G Performed By: #### 4 [id number] #### [facility] [address] [address] [address] Sachin Coates HPV Genotype Reflex Comment Normal [facility] Comment on above: Result Comment: Crit ercarina not met, HPV Genotype not performed. Performed at: WB Performed By: #### 4 [id number] #### [facility] [address] [place] [address] Dr. Sachin Coates Methodology: Comment [facility] Comment on above: Result Comment: This liquid based ThinPrep(R) pap test was screened with the use of an image guided system. Performed at: WB Performed By: #### 4 [id number] #### [facility] [address] [place] [address] Dr. Sachin Coates Note: Comment [facility] Comment on above: Result Comment: The Pap smear is a screening test designed to aid in the detection of premalignant and malignant conditions of the uterine cervix. It is not a diagnostic procedure and should not be used as the sole means of detecting cervical cancer. Both false-positive and false-negative reports do occur. . Performed at: WB Performed By: #### 4 [id number] #### [facility] [address] [place] [address] Dr. Sachin Coates Performed by: Comment Normal [facility] Comment on above: Result Comment: Peyton Beverly, Geriatric Aide (ASCP) Performed at: WB Performed By: #### 4 [id number] #### [facility] [address] [place] [address] Dr. Sachin Coates QC reviewed by: Comment Normal [facility] Comment on above: Result Comment: Cielo Cochran, Supervisory Geriatric Aide (ASCP) Performed at: WB Performed By: #### 4 [id number] #### [facility] [address] [place] [address] Dr. Sachin Coates Specimen adequacy: Comment Normal [facility] Comment on above: Result Comment: Sati sfactory for evaluation. Endocervical and/or squamous metaplastic cells (endocervical component) are present. Performed at: WB Performed By: #### 4 [id number] #### [facility] [address] [address] [address] Sachin Coates COVID-19 SOFIAOrdered By: Dario To on 12-02-2021 SARS-CoV+SARS-CoV-2 (COVID-19) Ag IA.rapid Ql (Resp) Negative Negative [facility] Comment on above: This is a duplicate Zuleyma SARS Antigen (PAMELLA) result to be used for statistical tracking purpose only. No Panel InformationOrdered By: Ck To on 12-02-2021 SARS Antigen (LFIA) [facility] Chart Updateon 08-08-2020 Chart Update [...] Signatures Electronically signed by : Nickie Littlejohn APRN-BANK MANAGER; Aug 08 2020 10:18AM EST (Author) Normal [facility] DIRECTOR MACHINE - Procedure Visiton 0 07-10-2020 DIRECTOR MACHINE - Procedure Visit Chief Complaint IUI Active [...] ESTRADIOLon 07-08-2020 ESTRADIOL 186 pg/mL Normal [facility] Comment on above: Result Comment: Estr adiol measurement is performed using the [employer] Access Sensitive Estradiol Immunoassay. Estradiol testing is performed using a different test methodology at [facility] than other [facility]. Direct result comparison should only be made within the same method. REF VALUES EARLY FOLLICULAR 22-115 MID FOLLICULAR 25-115 OVULATORY PEAK 32-517 MID LUTEAL 37-246 POSTMENOPAUSE <15- 25 MALE <15- 32 Performed By: #### G [facility] #### [facility] [address] [place] [address] Estradiol, Serumon 1 E2 [Mass/Vol] 186 pg/mL MG-OBGYN-Ri sm an 310 IVF Work Phone: Comment on above: Estradiol measuremen t is performed using the [facility] Access Sensitive Estradiol Immunoassay. Estradiol testing is performed using a different test methodology at [facility] than [facility]. Direct result comparison should only be made within the same method.REF VALUESEARLY FOLLICULAR 22-115MID FOLLICULAR 25-115OVULATORY PEAK 32-517MID LUTEAL 37-246POSTMENOPAUSE <15- 25MALE <15- 32 LUTEINIZING HORMONEon 2020 LUTEINIZING HORMONE 9.5 IU/L Normal [facility] Comment on above: Result Comment: Lute inizing Hormone [LH] is performed using the [facility] Access Immunoassay. LH testing is performed using a different test methodology at [facility] than other [facility]. Direct result comparison should only be made within the same method. REF VALUES FOLLICULAR PHASE 1.5-10.0 MID-CYCLE 13.0-72.0 LUTEAL PHASE 0.5-13.0 MENOPAUSE 15.0-65.0 PREPUBERTY 0- 3.0 CHILDREN 0- 6.0 ADULT MALE 1.0- 9.0 Performed By: #### G [facility] #### [facility] [address] [place] [address] Luteinizing Hormone, Serumon 07-08-2020 Lutropin Qn 9.5 {IU/L} MF-BSIKO-Pxan an 310 IVF Work Phone: Comment on above: Luteinizing Hormone [LH] is performed using the [facility] Access Immunoassay. LH testing is performed using a different test methodology at [facility] than other [facility]. Direct result comparison should only be made within the same method.REF VALUESFOLLICULAR PHASE 1.5-10.0MID-CYCLE 13.0-72.0LUTEAL PHASE 0.5-13.0MENOPAUSE 15.0-65.0PREPUBERTY 0- 3.0CHILDREN 0- 6.0ADULT MALE 1.0- 9.0 TYPE + SCREENon 07-06-2020 ABO TYPE A Normal [facility] Comment on above: Performed By: #### T +S #### [facility] [address] [place] [address] RH TYPE Positive [address] [facility] Comment on above: Performed By: #### T +S #### [facility] [address] [place] [address] ESTRADIOLon 07-05-2020 ESTRADIOL 58 pg/mL Normal [facility] Comment on above: Result Comment: Estr adiol measurement is performed using the [facility] Access Sensitive Estradiol Immunoassay. Estradiol testing is performed using a different test methodology at [facility] than other [facility]. Direct result comparison should only be made within the same method. REF VALUES EARLY FOLLICULAR 22-115 MID FOLLICULAR 25-115 OVULATORY PEAK 32-517 MID LUTEAL 37-246 POSTMENOPAUSE <15- 25 MALE <15- 32 Performed By: #### G [facility] #### [facility] [address] [place] [address] Estradiol, Serumon E2 [Mass/Vol] 58 pg/mL MG-OBGYN-Ri sm an 310 IVF Work Phone: Comment on above: Estradiol measuremen t is performed using the [facility] Access Sensitive Estradiol Immunoassay. Estradiol testing is performed using a different test methodology at [facility] than other [facility]. Direct result comparison should only be made within the same method.REF VALUESEARLY FOLLICULAR 22-115MID FOLLICULAR 25-115OVULATORY PEAK 32-517MID LUTEAL 37-246POSTMENOPAUSE <15- 25MALE <15- 32 Hematologyon 07-05-2020 ABO group Nom (Bld) A MG-BILLING SUPERVISOR-Rism an 310 IVF Work Phone: Blood group antibody screen Ql Negative TP-LPKAR-Mmmp an 310 IVF Work Phone: Rh immune globulin screen (Bld) [Interp] Positive MG-OBGYN-R ism an 310 IVF Work Phone: LUTEINIZING HORMONEon 2020 LUTEINIZING HORMONE 9.2 IU/L Normal [facility] Comment on above: Result Comment: Lute inizing Hormone [LH] is performed using the [facility] Access Immunoassay. LH testing is performed using a different test methodology at [facility] than other [facility]. Direct result comparison should only be made within the same method. REF VALUES FOLLICULAR PHASE 1.5-10.0 MID-CYCLE 13.0-72.0 LUTEAL PHASE 0.5-13.0 MENOPAUSE 15.0-65.0 PREPUBERTY 0- 3.0 CHILDREN 0- 6.0 ADULT MALE 1.0- 9.0 Performed By: #### L #### [facility] [address] [place] [address] Luteinizing Hormone, Serumon 07-05-2020 Lutropin Qn 9.2 {IU/L} MG-UHKGL-Tftf an 310 IVF Work Phone: Comment on above: Luteinizing Hormone [LH] is performed using the [facility] Access Immunoassay. LH testing is performed using a different test methodology at [facility] than other [facility]. Direct result comparison should only be made within the same method.REF VALUESFOLLICULAR PHASE 1.5-10.0MID-CYCLE 13.0-72.0LUTEAL PHASE 0.5-13.0MENOPAUSE 15.0-65.0PREPUBERTY 0- 3.0CHILDREN 0- 6.0ADULT MALE 1.0- 9.0 DIRECTOR MACHINE - Office Visiton 02-0 DIRECTOR MACHINE - Office Visit Diagnoses/Problems Assessed Morbid obesity [...] Bayron Mccarty MD Reproductive Endocrinology and Infertility [facility] [phone] [place] [phone] [place] 1 Amended By: Bayron Mccarty; Jun 19 [...] MD [facility] [phone] [place] [phone] [place] Appointment Duration:. 25 minutes; greater than half of the time was spent on counseling. 1 Amended By: Bayron Mccarty; Jun 19 2020 10:16 AM ESTChief Complaint follow up History of Present Cgzktqj5606/19/2020 9:30AM JALEESA ARRIETA , 30 year is contacted for an (audio-visual, or audio only) Telehealth visit. Today's visit was provided through telemedicine conferencing: Using [employer] platform. Consent: The concept of telemedicine? has [...] is a telehealth appointment Results/Data HCG, Beta Nrdqqmfjyozf27Dzp1264 11:58AMBayron Mccarty Test NameResultFlagReference HCG, Beta Quantitative<2 [...] HCG measurement is performed using the [facility] Access Immunoassay which detects intact HCG and free beta HCG subunit. This test is not indicated for use as a tumor marker. HCG testing is performed using a different test methodology at [facility] than other [facility]. Direct result comparison should only be made within the same method. REF VALUES NON FEMALE <5 MALES <5 Progesterone, [id number] 11:58AMBayron Mccarty Test NameResultFlagReference Progesterone, Serum10.5 ng/mL REF VALUES MALE <0.3- 1.2 FOLLICULAR PHASE <0.3- 1.4 LUTEAL PHASE 3.3-25.6 MID-LUTEAL PHASE 4.4-28.0 POSTMENOPAUSAL <0.3- 0.7 FEMALES: 1ST TRIMESTER 11.2- 90.0 2ND TRIMESTER 25.6- 89.4 3RD TRIMESTER 48.4-422.5 . Patients receiving DHEA-S supplements may show false elevation of progesterone for results near 1.0 ng/mL. Contact laboratory at [phone] if alternative testing is needed. CMV IgG and IgM [id number] 11:58Bayron Stroud Test NameResultFlagReference CMV IgG AntibodyREACTIVEASee Below Reference Range: NONREACTIVE CMV IGM [id number] 11:58Bayron Stroud Test NameResultFlagReference CMV IGM AB<30.00 [...] testing in two or more weeks. Xray Jshuumybdnrwukknzez88Acg 2020 12:00AMBayron Mccarty [Mar 28, 2020 9:43AM Bayron Mccarty] Reason: Unspecified for Xray Hysterosalpingogram Test NameResultFlagReference Xray Hysterosalpingogram Please click on the link to view the study images Anti Mullerian [id number] 12:03PMBayron Mccarty Test NameResultFlagReference Anti Mullerian Hormone6.36 ng/mL For assays employing antibodies, the possibility exists for interference by heterophile antibodies in the samples.1 1.Oswald rCews. Interferences in Immunoassays - still a threat. Clin. Chem. 2000; 46: 0097-4388. This test was developed and its performance characteristics determined by [employer]. It has not been cleared or approved by the Food and Drug Administration. Reference Range: Females 26 - 30y: 1.03 - 11.10 Median 4.20 AMH concentrations of >= 1.06 ng/mL is correlated with a better response to ovarian stimulation, produced more retrievable oocytes and higher odds of live according to Michaeler et al. Fertility and Sterility. 2010: 94:9767-2343. The current AMH test method correlates with [...] exclude an AMH-secreting ovarian tumor. Rubella IgG [id number] 12:03PMBibiana Bayron Test NameResultFlagReference Rubella IgG AntibodyPOSITIVE [...] TSH WITH REFLEX TO FREE T4 IF [id number] 12:03PMBayron Mccarty Test NameResultFlagReference Thyroid Stimulating Hormone, Serum2.17 mIU/LSee Below Reference Range: 0.44 - 3.98 TSH testing is performed using different testing methodology at [facility] than at other [facility]. Direct result comparisons should only be made within the same method. Varicella Zoster IgG [id number] 12:03PMBibiana Bayron Test NameResultFlagReference Varicella Zoster IgG [...] altered results in serological assays. Vitamin D 25-Ocnpbhe08Tby3630 12:03PMBibiana Bayron Test NameResultFlagReference Vitamin D 25-Hydroxy, Level17 ng/mLA . DEFICIENCY: < 20 NG/ML INSUFFICIENCY: 20-29 NG/ML SUFFICIENCY: 30-100 NG/ML THIS ASSAY ACCURATELY QUANTIFIES THE SUM OF VITAMIN D3, 25-HYDROXY AND VIT D2,25-HYDROXY. { 17-Hydroxyprogesterone, [id number] 12:03PMYuniorBayron polanco Test NameResultFlagReference 17-Hydroxyprogesterone, Serum33 ng/dL [...] Endocrinol Metab. 1991;73:674-686; J Clin Endocrinol Metab. 1989;69;9566-4242; J Clin Endocrinol Metab. 1994;78:226-270. Pediatr Res 1988;23:525-529. MedLinePlus (accessed 10/25/13). This test was developed and its analytical performance characteristics have been determined by [employer] [place], [place]. It has not been cleared or approved by the U.S. Food and Drug Administration. This assay has been validated pursuant to the CLIA regulations and is used for clinical purposes. DHEA Sulfate, [id number] 12:03PMBibiana Bayron Test NameResultFlagReference DHEA Sulfate, Gdmac680 ug/dL65 - 395 MATURITY-BASED REFERENCE RANGES: PUBERTAL [...] laboratory for further information. Testosterone Free + [id number] 12:03Bibiana Bayron Test NameResultFlagReference Testosterone, Total63 ng/dLH2-45 For additional information, please refer to http://education.Intale/faq/ TotalTestosteroneLCMSMSF AQ165 (This link is being provided for informational/ educational purposes only.) This test was developed and its analytical performance characteristics have been determined by [employer] [place], [place]. It has not been cleared or approved by the U.S. Food and Drug Administration. This assay has been validated pursuant to the CLIA regulations and is used for clinical purposes. Testosterone, Free Serum8.8 pg/mLH0.1-6.4 This test was developed and its analytical performance characteristics have [facility] [place] It has not been cleared or approved by the U.S. Food and Drug Administration. This assay has been validated pursuant to the CLIA regulations and is used for clinical purposes. Hemoglobin [id number] 12:03PMBayron Mccarty Test NameResultFlagReference Hemoglobin A1C, Level5.5 % Diagnosis of Diabetes-Adults Non-Diabetic: < or = 5.6% Increased risk for developing diabetes: 5.7-6.4% Diagnostic of diabetes: > or = 6.5% . Monitoring of Diabetes Age (y) Therapeutic Goal (%) Adults: >18 <7.0 Pediatrics: 13-18 <7.5 7-12 <8.0 0- 6 7.5-8.5 Canadian Diabetes Association. Diabetes Care 33(S1), May 2009. Estimated Average Cgrxdaz970 MG/DL GC + Chlamydia By Amplified Yftlhoygj81Ljs8877 12:03Bayron Mccarty Test NameResultFlagReference N.GONORRHEA,AMPLIFIEDNEG ATIVENegative SOURCE: Urine Chlamydia Trach, AmplifiedNEGATIVENegativ e Hepatitis B Surface [id number] 12:03Bayron Mccarty Test NameResultFlagReference Hep.B Surface AgNONREACTIVESee Below Reference Range: NONREACTIVE Biotin interference may cause falsely decreased results. Patients taking a Biotin dose of up to 5 mg/day should refrain from taking Biotin for 24 hours before sample collection. Providers may contact their local laboratory for further information. Hepatitis C Antibody [id number] 12:03PMBibianaBayron Test NameResultFlagReference Hepatitis C-AntibodyNONREACTIVESee Below Reference Range: NONREACTIVE Results from patients taking biotin supplements or receiving high-dose biotin therapy should be interpreted with caution due to possible interference with this test. Providers may contact their local laboratory for further information. HIV 1/2 ANTIGEN/ANTIBODY SCREEN WITH REFLEX TO [id number] 12:03PMBayron Mccarty Test NameResultFlagReference HIV 1/2 AG/AB SCREENNONREACTIVESee Below Reference Range: NONREACTIVE HIV Ag/Ab screen is performed using the Siemens Sportfort HIV Ag/Ab Combo assay which detects the presence of HIV p24 antigen as well as antibodies to HIV-1 (Group M and O) and HIV-2. SYPHILIS SCREENING WITH [id number] 12:03PMBayron Mccarty Test NameResultFlagReference SYPHILIS TOTAL ANTIBODYNONREACTIVESee [...] ABon 04-20-2020 CMV IGM AB <30.00 Normal [facility] Comment on above: Result Comment: REFE [...] or more weeks. Performed By: #### C [facility] #### [employer] [id number] [place] [id number] CMV IGG AND IGM ABon 020 CMV IGG AB REACTIVE Abnormal NONREACTIVE [facility] Comment on above: Performed By: #### C MV2 #### [facility] [address] [place] [address] PROGESTERONEon 04-16-2020 PROGESTERONE 10.5 ng/mL Normal [facility] Comment on above: Result Comment: REF VALUES MALE <0.3- 1.2 FOLLICULAR PHASE <0.3- 1.4 LUTEAL PHASE 3.3-25.6 MID-LUTEAL PHASE 4.4-28.0 POSTMENOPAUSAL <0.3- 0.7 FEMALES: 1ST TRIMESTER 11.2- 90.0 2ND TRIMESTER 25.6- 89.4 3RD TRIMESTER 48.4-422.5 . Patients receiving DHEA-S supplements may show false elevation of progesterone for results near 1.0 ng/mL. Contact laboratory at [phone] if alternative testing is needed. Performed By: #### P BOBBY #### [facility] [address] [place] [address] HCG,BETA-QUANTITATIVEon HCG,BETA-QUANTITATIVE <2 Normal [facility] Comment on above: Result Comment: Low- [...] performed using a different test methodology at [facility] than other [facility]. Direct result comparison should only be made within the same method. REF VALUES NON FEMALE <5 MALES <5 Performed By: #### H CGQU #### [facility] [address] [place], [place] [id number] DIRECTOR MACHINE - Office Visiton DIRECTOR MACHINE - Office Visit Chief Complaint An interactive [...] a FUV to discuss her test results. BEST, Zac. History of Present Wlaxooa8004/14/2020 9:30AM JALEESA ARRIETA , 30 year is contacted for an (audio-visual, or audio only) Telehealth visit. Today's visit was provided through telemedicine conferencing: Using [employer] platform. Consent: The concept of telemedicine? has [...] Days ; #: Sufficient Tablet; Refill: 0; EKVIN = N; Record; Last Updated By: Breezy Jasso; 2020 1:15:24 PM Vitals Vital Signs Recorded: 80Zmo7456 09:08AM Height5 ft 6 in Yismet368 lb BMI Wphrfzesnp58.81 BSA Calculated2.34 HDX46Kzr0147 Gravida1 Para0 Pain Scale0 Physical Exam This is a telehealth appointment Results/Data Anti Mullerian [id number] 12:03PMBayron Mccarty Test NameResultFlagReference Anti Mullerian Hormone6.36 ng/mL For assays employing antibodies, the possibility exists for interference by heterophile antibodies in the samples.1 1.Oswald Brunner Interferences in Immunoassays - still a threat. Clin. Chem. 2000; 46: 6287-6118. This test was developed and its performance characteristics determined by [employer] [facility]. It has not been cleared or approved by the Food and Drug Administration. Reference Range: Females 26 - 30y: 1.03 - 11.10 Median 4.20 AMH concentrations of >= 1.06 ng/mL is correlated with a better response to ovarian stimulation, produced more retrievable oocytes and higher odds of live according to Michaeler et al. Fertility and Sterility. 2010: 94:4973-2811. The current AMH test method correlates with [...] exclude an AMH-secreting ovarian tumor. Anti Mullerian [id number] 12:03PMBayron Mccarty Test NameResultFlagReference Anti Mullerian Hormone6.36 ng/mL For assays employing antibodies, the possibility exists for interference by heterophile antibodies in the samples.1 1.Oswald Brunner Interferences in Immunoassays - still a threat. Clin. Chem. 2000; 46: 2726-1545. This test was developed and its performance characteristics determined by [facility]. It has not been cleared or approved by the Food and Drug Administration. Reference Range: Females 26 - 30y: 1.03 - 11.10 Median 4.20 AMH concentrations of >= 1.06 ng/mL is correlated with a better response to ovarian stimulation, produced more retrievable oocytes and higher odds of live according to Carey et al. Fertility and Sterility. 2010: 94:2062-2611. The current AMH test method correlates with [...] exclude an AMH-secreting ovarian tumor. Rubella IgG Fcfdippz62Tqo5274 12:03PMBayron Mccarty Test NameResultFlagReference Rubella IgG AntibodyPOSITIVE [...] TSH WITH REFLEX TO FREE T4 IF [id number] 12:03PMBayron Mccarty Test NameResultFlagReference Thyroid Stimulating Hormone, Serum2.17 mIU/LSee Below Reference Range: 0.44 - 3.98 TSH testing is performed using different testing methodology at [facility] than at other [facility]. Direct result comparisons should only be made within the same method. Varicella Zoster IgG Nprzzeru47Efp0649 12:03PMBayron Mccarty Test NameResultFlagReference Varicella Zoster IgG [...] altered results in serological assays. Vitamin D 25-Mmrjftg27Dzz0202 12:03Bayron Mccarty Test NameResultFlagReference Vitamin D 25-Hydroxy, Level17 ng/mLA . DEFICIENCY: < 20 NG/ML INSUFFICIENCY: 20-29 NG/ML SUFFICIENCY: 30-100 NG/ML THIS ASSAY ACCURATELY QUANTIFIES THE SUM OF VITAMIN D3, 25-HYDROXY AND VIT D2,25-HYDROXY. { 17-Hydroxyprogesterone, Pgzlz77Acf6635 12:03Bayron Silva Test NameResultFlagReference 17-Hydroxyprogesterone, Serum33 ng/dL [...] Endocrinol Metab. 1991;73:674-686; J Clin Endocrinol Metab. 1989;69;7920-3437; J Clin Endocrinol Metab. 1994;78:226-270. Pediatr Res 1988;23:525-529. MedLinePlus (accessed 10/25/13). This test was developed and its analytical performance characteristics have been determined by [facility] [place] It has not been cleared or approved by the U.S. Food and Drug Administration. This assay has been validated pursuant to the CLIA regulations and is used for clinical purposes. DHEA Sulfate, Qgjac33Rse3053 12:03PMBayron Mccarty Test NameResultFlagReference DHEA Sulfate, Fcpnv778 ug/dL65 - 395 MATURITY-BASED REFERENCE RANGES: PUBERTAL [...] laboratory for further information. Testosterone Free + Dnyas28Cwa0592 12:03PMBayron Mccarty Test NameResultFlagReference Testosterone, Total63 ng/dLH2-45 For additional information, please refer to http://education.Intale/faq/ TotalTestosteroneLCMSMSF AQ165 (This link is being provided for informational/ educational purposes only.) This test was developed and its analytical performance characteristics have been determined by [employer] [place], [place]. It has not been cleared or approved by the U.S. Food and Drug Administration. This assay has been validated pursuant to the CLIA regulations and is used for clinical purposes. Testosterone, Free Serum8.8 pg/mLH0.1-6.4 This test was developed and its analytical performance characteristics have been determined by [employer] [place], [place]. It has not been cleared or approved by the U.S. Food and Drug Administration. This assay has been validated pursuant to the CLIA regulations and is used for clinical purposes. Hemoglobin [id number] 12:03PMBayron Mccarty NameResultFlagReference Hemoglobin A1C, Level5.5 % Diagnosis of Diabetes-Adults Non-Diabetic: < or = 5.6% Increased risk for developing diabetes: 5.7-6.4% Diagnostic of diabetes: > or = 6.5% . Monitoring of Diabetes Age (y) Therapeutic Goal (%) Adults: >18 <7.0 Pediatrics: 13-18 <7.5 7-12 <8.0 0- 6 7.5-8.5 Canadian Diabetes Association. Diabetes Care 33(S1), May 2009. Estimated Average Thrfaqz536 MG/DL GC + Chlamydia By Amplified Gkcjtwtmd42Koz7766 12:03PMBayron Mccarty Test NameResultFlagReference N.GONORRHEA,AMPLIFIEDNEG ATIVENegative SOURCE: Urine Chlamydia Trach, AmplifiedNEGATIVENegativ e Hepatitis B Surface Xvzvzrl00Naa1777 12:03PMBayron Mccarty NameResultReference Hep.B Surface AgNONREACTIVESee Below Reference Range: NONREACTIVE Biotin interference may cause falsely decreased results. Patients taking a Biotin dose of up to 5 mg/day should refrain from taking Biotin for 24 hours before sample collection. Providers may contact their local laboratory for further information. Hepatitis C Antibody [id number] 12:03PMBayron Mccarty NameResultFlagReference Hepatitis C-AntibodyNONREACTIVESee Below Reference Range: NONREACTIVE Results from patients taking biotin supplements or receiving high-dose biotin therapy should be interpreted with caution due to possible interference with this test. Providers may contact their local laboratory for further information. HIV 1/2 ANTIGEN/ANTIBODY SCREEN WITH REFLEX TO [id number] 12:03PMBayron Mccarty NameResultReference HIV 1/2 AG/AB SCREENNONREACTIVESee Below Reference Range: NONREACTIVE HIV Ag/Ab screen is performed using the J[employer]o HIV Ag/Ab Combo assay which detects the presence of HIV p24 antigen as well as antibodies to HIV-1 (Group M and O) and HIV-2. SYPHILIS SCREENING WITH [id number] 12:03PMBibiana Bayron Test NameResultFlagReference SYPHILIS TOTAL ANTIBODYNONREACTIVESee Below SOURCE: Reference Range: NONREACTIVE No significant level of Treponema pallidum antibody detected. Repeat testing in 2 to 4 weeks may be considered if early infection or incubating syphilis infection is suspected. Diagnoses/Problems Irregular menses (626.4) (N92.6) Morbid obesity (278.01) (E66.01) Orders HCG, Beta Quantitative; Status:Active; Requested for:82Uin5856; Perform:Lab Services - Lab To Draw (Blood Test); Due:13Jul2020;Ordered; For:Irregular menses; Ordered By:Bayron Mccarty; Progesterone, Serum; Status:Active; Requested for:38Rgl8827; Perform:Lab Services - Lab To Draw (Blood [...] MD [facility] [phone] [place] [phone] [place] Appointment Duration:. 25 minutes; greater than [...] MD [facility] [phone] Julien [phone] [place] 1 Amended By: Bayron Mccarty; Apr 14 2020 4:50 PM ESTSignatures Electronically signed by : Bayron Mccarty MD; Apr 14 2020 4:51PM EST (Author) Normal [employer] DIRECTOR MACHINE - Procedure Visiton 1 05-28-2019 DIRECTOR MACHINE - Procedure Visit Chief Complaint pt presents [...] 1 CAPSULE EVERY 12 HOURS DAILY; Therapy: 53Qor0179 to (Evaluate:29Tdx2338) Requested for: 36Ret7039; Last Rx:[id number] Ordered Rx By: Bayron Mccarty; Dispense: 5 Days ; #:10 Capsule; Refill: 0;For: Fertility testing; KEVIN = N; Verified Transmission to [place] [address]; Msg to Pharmacy: start medication the night before her procedure; Last Updated By: Cindi Lizarraga; 01/24/2020 12:08:27 PM Vitamin D 25 MCG (1000 UT) Oral Tablet; Therapy: 28Pyx2007 to Recorded Dispense: 0 Days ; #: [...] Signatures Electronically signed by : Kelle Vaz APRN-BANK MANAGER; Mar 28 2020 4:10PM EST (Author) Normal [facility] DIRECTOR MACHINE - Office Visiton 11-0 DIRECTOR MACHINE - Office Visit Chief Complaint The patient [...] is considering single parent procreation. Her usual Electronic Industrial Controls Mechanic with whom she would plan to follow with for care in a future is Dr. Ng in [place]. Active Problems Female infertility (628.9) (N97.9) Fertility [...] 1 CAPSULE EVERY 12 HOURS DAILY; Therapy: 20Ani7443 to (Evaluate:36Sfe9138) Requested for: 42Rhe5718; Last Rx:[id number] Ordered Rx By: Bayron Mccarty; Dispense: 5 Days ; #:10 Capsule; Refill: 0; For: Fertility testing; KEVIN = N; Verified Transmission to [place] [address]; Msg to Pharmacy: start medication the night before her procedure; Last Updated By: Cindi Lizarraga; 01/24/2020 12:08:27 PM Vitamin D 25 MCG (1000 UT) Oral Tablet; Therapy: 13Mar2020 to Recorded Dispense: 0 Days ; #: Sufficient Tablet; Refill: 0; KEVIN = N; Record; Last Updated By: Breezy Jasso; 2020 1:15:24 PM Vitals Vital Signs Recorded: 13Mar2020 01:08PM Heart Rate96 Uiwlfkle203 Wklitpjlh39 Height5 ft 6 in Snyfko005 lb BMI Corwrzxxkm03.91 BSA Calculated2.39 Tobacco Useb) No Fall Screeninga) No falls within the last year [id number] Gravida1 Para0 Pain Scale0 Diagnoses/Problems Morbid obesity [...] consultation of which greater than 50% was bcid-xi-pqmn counseling. Weight loss prior to conception is [...] MD; Jun 12 2020 4:50PM EST Normal [facility] ANTI MULLERIAN HORMONEon ANTI MULLERIAN HORMONE 6.36 ng/mL Normal [facility] Comment on above: Result Comment: For assays employing antibodies, the possibility exists for interference by heterophile antibodies in the samples.1 1.Oswald Crews. Interferences in Immunoassays - still a threat. Clin. Chem. 2000; 46: 5633-9097. This test was developed and its performance characteristics determined by [employer] [facility]. It has not been cleared or approved by the Food and Drug Administration. Reference Range: Females 26 - 30y: 1.03 - 11.10 Median 4.20 AMH concentrations of >= 1.06 ng/mL is correlated with a better response to ovarian stimulation, produced more retrievable oocytes and higher odds of live according to Carey et al. Fertility and Sterility. 2010: 94:0639-5307. The current AMH test method correlates with [...] ovarian tumor. Performed By: #### A #### [facility] [address] [place] [phone] 17-HYDROXYPROGESTERONEon 17-HYDROXYPROGESTERON E 33 ng/dL Normal [facility] Comment on above: Result Comment: [...] Endocrinol Metab. 1991;73:674-686; J Clin Endocrinol Metab. 1989;69;3064-9328; J Clin Endocrinol Metab. 1994;78:226-270. Pediatr Res 1988;23:525-529. MedLinePlus (accessed 10/25/13). This test was developed and its analytical performance characteristics have been determined by [employer] [place], [place]. It has not been cleared or approved by the U.S. Food and Drug Administration. This assay has been validated pursuant to the CLIA regulations and is used for clinical purposes. Performed By: #### 1 7OHP #### [employer] [facility] [address] [place], [place] TESTOST,FREE AND TOTALon TESTOSTERONE TOT.LC/MS/MS 63 ng/dL High 2-45 [facility] Comment on above: Result Comment: For additional information, please refer to http://education.[employer]phase [employer]/faq/ ObzrkAtqsgqiydpcmUPLIVAWUL275 (This link is being provided for informational/ educational purposes only.) This test was developed and its analytical performance characteristics have been determined by [employer] [place], [place]. It has not been cleared or approved by the U.S. Food and Drug Administration. This assay has been validated pursuant to the CLIA regulations and is used for clinical purposes. Performed By: #### G [facility] #### [facility] [address] [place] [address] TESTOSTERONE,FREE 8.8 pg/mL High 0.1-6.4 [facility] Comment on above: Result Comment: This test was developed and its analytical performance characteristics have been determined by [employer] [place], [place]. It has not been cleared or approved by the U.S. Food and Drug Administration. This assay has been validated pursuant to the CLIA regulations and is used for clinical purposes. Performed By: #### G [facility] #### [facility] [address] [place] [address] DHEA SULFATEon 01-25-2020 DHEA SULFATE 214 ug/dL Normal 65 - 395 [facility] Comment on above: Result Comment: [...] #### G [facility] #### [facility] [address] [place] [address] GC + CHLAMYDIA BY AMPLIFIED DETECTIONon 01-25-2020 CHLAMYDIA TRACH.,AMPLIFIED Negative Normal Negative [facility] Comment on above: Performed By: #### G [facility] #### [facility] [address] [place] [address] N.GONORRHEA,AMPLIFIED Negative Normal Negative [facility] Comment on above: Performed By: #### G CCHA #### [facility] [address] [place] [address] HEPATITIS B SURFACE AGon HEP.B SURFACE AG NONREACTIVE Normal NONREACTIVE [facility] Comment on above: Result Comment: Biot in interference may cause falsely decreased results. Patients taking a Biotin dose of up to 5 mg/day should refrain from taking Biotin for 24 hours before sample collection. Providers may contact their local laboratory for further information. Performed By: #### G CCHA #### [facility] [address] [place] [address] HEPATITIS C ABon 01-25-2020 HEPATITIS C AB NONREACTIVE Normal NONREACTIVE [facility] Comment on above: Result Comment: Resu lts from patients taking biotin supplements or receiving high-dose biotin therapy should be interpreted with caution due to possible interference with this test. Providers may contact their local laboratory for further information. Performed By: #### H CVAB #### [facility] [address] [place] [address] HIV ANTIGEN/ANTIBODY SCREENo n 01-25-2020 HIV AG/AB SCREEN NONREACTIVE Normal NONREACTIVE [facility] Comment on above: Result Comment: HIV Ag/Ab screen is performed using the Siemens [employer] HIV Ag/Ab Combo assay which detects the presence of HIV p24 antigen as well as antibodies to HIV-1 (Group M and O) and HIV-2. Performed By: #### G CCHA #### [facility] [address] [place] [address] RUBELLA IGG ABon 01-25-2020 RUBELLA IGG AB Positive Normal [facility] Comment on above: Result Comment: [...] assays. Performed By: #### R UBIG #### [facility] [address] [place] [id number] SYPHILIS SCREENING WITH REFL EXon 01-25-2020 SYPHILIS TOTAL AB NONREACTIVE Normal NONREACTIVE [facility] Comment on above: Result Comment: No s ignificant level of Treponema pallidum antibody detected. Repeat testing in 2 to 4 weeks may be considered if early infection or incubating syphilis infection is suspected. Performed By: #### S YPHR #### [facility] [address] [place] [id number] TSH WITH REFLEX TO FREE T4 I F ABNORMALon 01-25-2020 TSH Qn 2.17 m[IU]/L Normal 0.44 - 3.98 [facility] Comment on above: Result Comment: TSH testing is performed using different testing methodology at [facility] than at other [facility]. Direct result comparisons should only be made within the same method. Performed By: #### G CCHA #### [facility] [address] [place] [id number] VARICELLA ZOSTER IGG ABon VARICELLA ZOSTER IGG AB Negative Normal NEGATIVE [facility] Comment on above: Result Comment: [...] assays. Performed By: #### V ARZG #### [facility] [address] [place] [address] VITAMIN D, 25-HYDROXYon 01-10 VITAMIN D, 25-HYDROXY 17 ng/mL Abnormal [facility] Comment on above: Result Comment: . DEFICIENCY: < 20 NG/ML INSUFFICIENCY: 20-29 NG/ML SUFFICIENCY: 30-100 NG/ML THIS ASSAY ACCURATELY QUANTIFIES THE SUM OF VITAMIN D3, 25-HYDROXY AND VIT D2,25-HYDROXY. { Performed By: #### G [facility] #### [facility] [address] [place] [address] GC + CHLAMYDIA BY AMPLIFIED DETECTIONon 01-24-2020 Lab Specimen Source Urine Normal [facility] Comment on above: Performed By: #### G [facility] #### [facility] [address] [place] [address] HEMOGLOBIN A1Con 01-24-2020 HbA1c (Bld) [Mass fraction] 5.5 % Normal [facility] Comment on above: Result Comment: Diag nosis of Diabetes-Adults Non-Diabetic: < or = 5.6% Increased risk for developing diabetes: 5.7-6.4% Diagnostic of diabetes: > or = 6.5% . Monitoring of Diabetes Age (y) Therapeutic Goal (%) Adults: >18 <7.0 Pediatrics: 13-18 <7.5 7-12 <8.0 0- 6 7.5-8.5 Canadian Diabetes Association. Diabetes Care 33(S1), May 2009. Performed By: #### H BA1E #### [facility] [address] [place] [address] HbA1c (Bld) [Mass fraction] 111 MG/DL Normal [facility] Comment on above: Performed By: #### H BA1E #### [facility] [address] [place] [address] DIRECTOR MACHINE - Office Visiton 01-10 DIRECTOR MACHINE - Office Visit Chief Complaint 29 year [...] treated with laparoscopic left salpingectomy in [facility]. 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: Yes, remote history of [...] PM Vitals Vital Signs Recorded: 24Jan2020 11:13AM Xxvuxadbdoj31.7 F Heart Nvep389 Fpnzckoj527 Yxiarqzhd57 Height5 ft 6 in Gtouyu548 lb BMI Thohhpxlsw97.13 BSA Calculated2.35 Tobacco Useb) No Fall Screeninga) No falls within the last year DPK78Sti8166 Gravida1 Para0 Pain Scale0 Diagnoses/Problems Female infertility (628.9) (N97.9) Fertility testing (V26.21) (Z31.41) Morbid obesity (278.01) (E66.01) Irregular menses (626.4) (N92.6) Screening for STD (sexually transmitted disease) (V74.5) (Z11.3) *Orders Anti Mullerian Hormone; Status:Active; Requested for:24Jan2020; Perform:Lab Services - Lab To Draw (Non-Blood Test); Due:95Uxu5231;Ordered; For:Female infertility, Fertility testing, Irregular menses, Morbid obesity; Ordered By:Bayron Mccarty; Start: Doxycycline Monohydrate 100 MG Oral Capsule; TAKE 1 CAPSULE EVERY 12 HOURS DAILY Rx By: Bayron Mccarty; Dispense: 5 Days ; #:10 Capsule; Refill: 0; For: Fertility testing; KEVIN = N; Verified Transmission to [place] [address]; Msg to Pharmacy: start medication the night before her procedure; Last Updated By: Cindi Lizarraga; 01/24/2020 12:08:27 PM Maternal Medicine Referral Evaluation and Treatment Evaluate AND Treat Status: Hold For - Scheduling Requested for: 24Jan2020 Ordered; For: Morbid obesity; Ordered By: Bayron Mccarty Performed: Due: 17Obr2736 17-Hydroxyprogesterone, Serum; Status:Active; Requested for:81Snr9252; Perform:Lab Services - Lab To Draw (Blood Test); Due:92Gex7204;Ordered; For:Screening for STD (sexually transmitted disease); Ordered By:Bayron Mccarty; DHEA Sulfate, Serum; Status:Active; Requested for:[id number]; Perform:Lab Services - Lab To Draw (Blood Test); Due:[id number];Ordered; For:Screening for STD (sexually transmitted disease); Ordered By:Bayron Mccarty; Hemoglobin A1C; Status:Active; Requested for:40Tia3032; Perform:Lab Services - Lab To Draw (Blood Test); Due:[id number];Ordered; For:Screening for STD (sexually transmitted disease); Ordered By:Bayron Mccarty; Rubella IgG Antibody; Status:Active; Requested for:[id number]; Perform:Lab Services - Lab To Draw (Blood Test); Due:[id number];Ordered; For:Screening for STD (sexually transmitted disease); Ordered By:Bayron Mccarty; Testosterone Free + Total; Status:Active; Requested for:[id number]; Perform:Lab Services - Lab To Draw (Blood Test); Due:[id number];Ordered; For:Screening for STD (sexually transmitted disease); Ordered By:Bayron Mccarty; TSH WITH REFLEX TO FREE T4 IF ABNORMAL; Status:Active; Requested for:[id number]; Perform:Lab Services - Lab To Draw (Blood Test); Due:[id number];Ordered; For:Screening for STD (sexually transmitted disease); Ordered By:Bayron Mccarty; Ultrasound Pelvis Transvaginal; Status:Hold For - Scheduling; Requested for:24Jan2020; Perform:[facility] Radiology [facility] Imaging; Order Comments:will call with menses to schedule; Due:[id number];Ordered; For:Screening for STD (sexually transmitted disease); Ordered By:Bayron Mccarty; Radiologist to Determine Optimal Study : Y What are the patient's signs and symptoms? : fert testing Varicella Zoster IgG Antibody; Status:Active; Requested for:24Jan2020; Perform:Lab Services - Lab To Draw (Blood Test); Due:21Sgl1266;Ordered; For:Screening for STD (sexually transmitted disease); Ordered By:Bayron Mccarty; Vitamin D 25-Hydroxy; Status:Active; Requested for:[id number]; Perform:Lab Services - Lab To Draw (Blood Test); Due:14Snz7225;Ordered; For:Screening for STD (sexually transmitted disease); Ordered By:Bayron Mccarty; Xray Hysterosalpingogram; Status:Hold For - Scheduling; Requested for:24Jan2020; Perform:[facility] Radiology Services Imaging; Order Comments:will call with menses to schedule. schedule between CD5-12. start doxycycline night prior to procedure; Due:99Ohi6756;Ordered; For:Screening for STD (sexually transmitted disease); Ordered By:Bayron Mccarty; Radiologist to Determine Optimal Study : Y What are the patient's signs and symptoms? : fert testing Tobacco Use Screening; Status:Complete; Done: [id number] Perform:Not Applicable;Ordered; For:SocHx: Never a smoker; Ordered [...] sent to her home pharmacy ([facility] [place]) [ ] Day 3 FSH, LH, E2 [x] AMH [x] TSH [x] Prolactin [x] Testosterone, DHEAS [x] HgA1C [x] STD screening [x ] Preconceptual screening including Rubella,Varicella, Blood type [ ] Genetic Screen with Myriad - will consider [ ] Take vitamins [x] Return to see CHEMISTRY TECHNICAL OFFICER after workup complete to discuss management plan [...] REFL EXon 01-24-2020 Lab Specimen Source Normal [facility] Comment on above: Performed By: #### S YPHR #### [facility] [id number] [place] [address] Performed By: #### Jovany ARZG #### [facility] [address] [place] [address] Performed By: #### R UBIG #### [facility] [address] [place] [address] Vital Signs Date Time Vital Sign Value Performing Clinician Facility 10-13-2024 15:25-0400 Body temperature 97.7 [degF] Services [facility] Work Phone: [facility] 10-13-2024 15:25-0400 Diastolic blood pressure 85 mm[Hg] Services [facility] Work Phone: [facility] 10-13-2024 15:25-0400 Heart rate 98 /min Services [facility] Work Phone: [facility] 10-13-2024 15:25-0400 Respiratory rate 18 /min Services [facility] Work Phone: [facility] 10-13-2024 15:25-0400 SaO2% (BldA) [Mass fraction] 97 % Services [facility] Work Phone: [facility] 10-13-2024 15:25-0400 Systolic blood pressure 126 mm[Hg] Services [facility] Work Phone: [facility] 10-13-2024 13:47-0400 Body height 167.64 cm Services [facility] Work Phone: [facility] 10-13-2024 13:47-0400 Body weight 149.85 kg Services [facility] Work Phone: [facility] 07-12-2024 16:12-0500 Body mass index (BMI) [Ratio] 50.52 kg/m2 Mena Marissa PA Work Phone: [facility] 07-12-2024 16:12-0500 Body weight 141.98 kg Mena Marissa PA Work Phone: [facility] 07-12-2024 16:12-0500 Diastolic blood pressure 78 mm[Hg] Mena Arnett PA Work Phone: [facility] 07-12-2024 16:12-0500 Systolic blood pressure 124 mm[Hg] Mena Arnett PA Work Phone: [facility] 05-26-2024 14:09-0500 Body mass index (BMI) [Ratio] 49.57 kg/m2 Tacho Shon DO Work Phone: [facility] 05-26-2024 14:09-0500 Body weight 139.31 kg Tacho Shon DO Work Phone: [facility] 05-26-2024 14:09-0500 Diastolic blood pressure 82 mm[Hg] Tacho Shon DO Work Phone: [facility] 05-26-2024 14:09-0500 Systolic blood pressure 126 mm[Hg] Tacho Shon DO Work Phone: [facility] 05-17-2024 15:36-0500 Body mass index (BMI) [Ratio] 49.41 kg/m2 Tacho Shon DO Work Phone: [facility] 05-17-2024 15:36-0500 Body weight 138.85 kg Tacho Shon DO Work Phone: [facility] 05-17-2024 15:36-0500 Diastolic blood pressure 80 mm[Hg] Tacho Shon DO Work Phone: [facility] 05-17-2024 15:36-0500 Systolic blood pressure 118 mm[Hg] Tacho Shon DO Work Phone: [facility] 05-03-2024 15:11-0500 Body mass index (BMI) [Ratio] 49.09 kg/m2 Mena CARRILLO Work Phone: [facility] 05-03-2024 15:11-0500 Body weight 137.95 kg Mena Marissa PA Work Phone: [facility] 05-03-2024 15:11-0500 Diastolic blood pressure 70 mm[Hg] Mena nAn PA Work Phone: [facility] 05-03-2024 15:11-0500 Systolic blood pressure 120 mm[Hg] Mena Ann PA Work Phone: [facility] 04-22-2024 09:51-0500 Body mass index (BMI) [Ratio] 49.45 kg/m2 Tacho Shon DO Work Phone: [facility] 04-22-2024 09:51-0500 Body weight 138.98 kg Tacho Shon DO Work Phone: [facility] 04-22-2024 09:51-0500 Diastolic blood pressure 80 mm[Hg] Tacho Shon DO Work Phone: [facility] 04-22-2024 09:51-0500 Systolic blood pressure 130 mm[Hg] Tacho Shon DO Work Phone: [facility] 04-06-2024 14:10-0500 Body mass index (BMI) [Ratio] 48.58 kg/m2 Mena Ann PA Work Phone: [facility] 04-06-2024 14:10-0500 Body weight 136.53 kg Mena Ann PA Work Phone: [facility] 04-06-2024 14:10-0500 Diastolic blood pressure 80 mm[Hg] Mena Ann PA Work Phone: [facility] 04-06-2024 14:10-0500 Systolic blood pressure 128 mm[Hg] Mena Ann PA Work Phone: [facility] 03-22-2024 14:14-0500 Body mass index (BMI) [Ratio] 48.92 kg/m2 Tacho Shon DO Work Phone: [facility] 03-22-2024 14:14-0500 Body weight 137.49 kg Tacho Shon DO Work Phone: [facility] 03-22-2024 14:14-0500 Diastolic blood pressure 84 mm[Hg] Tacho Shon DO Work Phone: [facility] 03-22-2024 14:14-0500 Systolic blood pressure 126 mm[Hg] Tacho Shon DO Work Phone: [facility] 03-05-2024 23:11-0400 Diastolic blood pressure 78 mm[Hg] Services [facility] Work Phone: [facility] 03-05-2024 23:11-0400 Heart rate 90 /min Services [facility] Work Phone: [facility] 03-05-2024 23:11-0400 Respiratory rate 18 /min Services [facility] Work Phone: [facility] 03-05-2024 23:11-0400 SaO2% (BldA) [Mass fraction] 96 % Services [facility] Work Phone: [facility] 03-05-2024 23:11-0400 Systolic blood pressure 136 mm[Hg] Services [facility] Work Phone: [facility] 03-05-2024 19:59-0400 Body temperature 98.1 [degF] Services [facility] Work Phone: [facility] 03-05-2024 19:58-0400 Body height 167.64 cm Services [facility] Work Phone: [facility] 03-05-2024 19:58-0400 Body weight 136.55 kg Services [facility] Work Phone: [facility] 02-26-2024 19:50-0400 Body height 167.64 cm Services [facility] Work Phone: [facility] 02-26-2024 19:50-0400 Body temperature 97.8 [degF] Services [facility] Work Phone: [facility] 02-26-2024 19:50-0400 Body weight 136.98 kg Services [facility] Work Phone: [facility] 02-26-2024 19:50-0400 Diastolic blood pressure 91 mm[Hg] Services [facility] Work Phone: [facility] 02-26-2024 19:50-0400 Heart rate 103 /min Services [facility] Work Phone: [facility] 02-26-2024 19:50-0400 Respiratory rate 16 /min Services [facility] Work Phone: [facility] 02-26-2024 19:50-0400 SaO2% (BldA) [Mass fraction] 96 % Services [facility] Work Phone: [facility] 02-26-2024 19:50-0400 Systolic blood pressure 144 mm[Hg] Services [facility] Work Phone: [facility] 02-23-2024 14:01-0400 Body mass index (BMI) [Ratio] 48.76 kg/m2 Mena CARRILLO Work Phone: [facility] 02-23-2024 14:01-0400 Body weight 137.04 kg Mena CARRILLO Work Phone: [facility] 02-23-2024 14:01-0400 Diastolic blood pressure 82 mm[Hg] Mena Marissa CARRILLO Work Phone: [facility] 02-23-2024 14:01-0400 Systolic blood pressure 128 mm[Hg] Mena Garciavania CARRILLO Work Phone: [facility] 01-20-2024 13:58-0400 Body mass index (BMI) [Ratio] 48.1 kg/m2 Tacho Shon DO Work Phone: [facility] 01-20-2024 13:58-0400 Body weight 135.17 kg Tacho Shon DO Work Phone: [facility] 01-20-2024 13:58-0400 Diastolic blood pressure 74 mm[Hg] Tacho Shon DO Work Phone: [facility] 01-20-2024 13:58-0400 Systolic blood pressure 122 mm[Hg] Tacho Shon DO Work Phone: [facility] 01-19-2024 14:56-0400 Body height 167.6 cm Zahra Donnelly MD Work Phone: [facility] 01-19-2024 14:56-0400 Body mass index (BMI) [Ratio] 48.45 kg/m2 Zahra Donnelly MD Work Phone: [facility] 01-19-2024 14:56-0400 Body weight 136.17 kg Zahra Donnelly MD Work Phone: [facility] 01-19-2024 14:56-0400 Diastolic blood pressure 69 mm[Hg] Zahra Donnelly MD Work Phone: [facility] 01-19-2024 14:56-0400 Heart rate 89 /min Zahra Donnelly MD Work Phone: [facility] 01-19-2024 14:56-0400 Systolic blood pressure 126 mm[Hg] Zahra Donnelly MD Work Phone: [facility] 10-06-2023 17:42-0400 Body height 167.64 cm Services [facility] Work Phone: [facility] 10-06-2023 17:42-0400 Body temperature 98.3 [degF] Services [facility] Work Phone: [facility] 10-06-2023 17:42-0400 Body weight 134 kg Services [facility] Work Phone: [facility] 10-06-2023 17:42-0400 Diastolic blood pressure 94 mm[Hg] Services [facility] Work Phone: [facility] 10-06-2023 17:42-0400 Heart rate 98 /min Services [facility] Work Phone: [facility] 10-06-2023 17:42-0400 Respiratory rate 18 /min Services [facility] Work Phone: [facility] 10-06-2023 17:42-0400 SaO2% (BldA) [Mass fraction] 100 % Services [facility] Work Phone: [facility] 10-06-2023 17:42-0400 Systolic blood pressure 142 mm[Hg] Services [facility] Work Phone: [facility] 09-17-2023 14:22-0400 Body height 167.6 cm Anna Ortiz [facility] 09-17-2023 14:22-0400 Body mass index (BMI) [Ratio] 47.61 kg/m2 Anna Ortiz RD [facility] 09-17-2023 14:22-0400 Body weight 133.[address] [facility] 08-20-2023 13:05-0400 Body height 167.6 cm Tonya Senior APRN.BANK MANAGER Work Phone: [facility] 08-20-2023 13:05-0400 Body weight 133.81 kg Tonya Senior APRN.BANK MANAGER Work Phone: [facility] 08-07-2023 15:23-0400 Body height 168.91 cm Services [facility] Work Phone: [facility] 08-07-2023 15:23-0400 Body mass index (BMI) [Ratio] 46.9 kg/m2 Services [facility] Work Phone: [facility] 08-07-2023 15:23-0400 Body weight 133.89 kg Services [facility] Work Phone: [facility] 08-07-2023 15:23-0400 Diastolic blood pressure 83 mm[Hg] Services [facility] Work Phone: [facility] 08-07-2023 15:23-0400 Heart rate 101 /min Services [facility] [employer] Work Phone: [facility] 08-07-2023 15:23-0400 Respiratory rate 18 /min Services [employer] Work Phone: [facility] 08-07-2023 15:23-0400 SaO2% (BldA) [Mass fraction] 98 % Services [employer] Work Phone: [facility] 08-07-2023 15:23-0400 Systolic blood pressure 120 mm[Hg] Services [employer] Work Phone: [facility] 06-13-2023 11:00-0500 Body height 168.28 cm [employer] Other [facility] 06-13-2023 11:00-0500 Body mass index (BMI) [Ratio] 48.53 kg/m2 [employer] Other [employer] Other 06-13-2023 11:00-0500 Body weight 137.44 kg [employer] Other [employer] Other 06-13-2023 11:00-0500 Body weight 137.43 kg Services [employer] Work Phone: [facility] 06-13-2023 11:00-0500 Diastolic blood pressure 82 mm[Hg] Nicholas Michaels Other [facility] 06-13-2023 11:00-0500 Respiratory rate 18 /min Nicholas Michaels Other [employer] Other 06-13-2023 11:00-0500 SaO2% (BldA) [Mass fraction] 97 % Nicholas Michaels Other [employer] Other 06-13-2023 11:00-0500 Systolic blood pressure 120 mm[Hg] Nicholas Michaels Other [facility] 01-08-2023 10:45-0400 Body height 168.28 cm Nicholas [email or web address] Other [employer] Other 01-08-2023 10:45-0400 Body mass index (BMI) [Ratio] 52.89 kg/m2 Nicholas Michaels Other [employer] Other 01-08-2023 10:45-0400 Body weight 149.78 kg Nicholas Michaels Other [employer] Other 01-08-2023 10:45-0400 Diastolic blood pressure 81 mm[Hg] Nicholas Michaels Other [employer] Other 01-08-2023 10:45-0400 Respiratory rate 18 /min Nicholas Michaels Other [employer] Other 01-08-2023 10:45-0400 SaO2% (BldA) [Mass fraction] 97 % Nicholsa [email or web address] Other [employer] Other 01-08-2023 10:45-0400 Systolic blood pressure 122 mm[Hg] Nicholas [email or web address] Other [employer] Other 06-18-2022 16:57-0500 Body height 167.64 cm Services [facility] Work Phone: [facility] 06-18-2022 16:57-0500 Body weight 157 kg Services [facility] Work Phone: [facility] 06-18-2022 16:56-0500 Body temperature 98.3 [degF] Services [facility] Work Phone: [facility] 06-18-2022 16:56-0500 Diastolic blood pressure 67 mm[Hg] Services [facility] Work Phone: [facility] 06-18-2022 16:56-0500 Heart rate 95 /min Services [facility] Work Phone: [facility] 06-18-2022 16:56-0500 Respiratory rate 20 /min Services [facility] Work Phone: [facility] 06-18-2022 16:56-0500 SaO2% (BldA) [Mass fraction] 97 % Services [facility] Work Phone: [facility] 06-18-2022 16:56-0500 Systolic blood pressure 158 mm[Hg] Services [facility] Work Phone: [facility] 12-02-2021 20:26-0400 Body height 167.64 cm Services [facility] Work Phone: [facility] 12-02-2021 20:26-0400 Body temperature 98.2 [degF] Services [facility] Work Phone: [facility] 12-02-2021 20:26-0400 Body weight 144.24 kg Services [facility] Work Phone: [facility] 12-02-2021 20:26-0400 Diastolic blood pressure 89 mm[Hg] Services [facility] Work Phone: [facility] 12-02-2021 20:26-0400 Heart rate 104 /min Services [facility] Work Phone: [facility] 12-02-2021 20:26-0400 Respiratory rate 20 /min Services [facility] Work Phone: [facility] 12-02-2021 20:26-0400 SaO2% (BldA) [Mass fraction] 96 % Services [facility] Work Phone: [facility] 12-02-2021 20:26-0400 Systolic blood pressure 156 mm[Hg] Services [facility] Work Phone: [facility] 06-19-2020 11:10-0500 BMI (Body Mass Index) 46.65 kg/m2 Bayron Bibiana RR-MPYHY-Gsrcsf 310 [facility] Work Phone: 06-19-2020 11:10-0500 Body weight 131.09 kg Bayron Bibiana KI-OWNCD-Dnhuvr 310 IVF Work Phone: 06-19-2020 11:10-0500 BSA (Body Surface Area) 2.34 m2 Bayron Bibiana DE-CCRKQ-Ribldl 310 IVF Work Phone: 06-19-2020 11:10-0500 Height 167.64 cm Bayron Bibiana SQ-SENCI-Zljvsw 310 IVF Work Phone: 06-19-2020 11:10-0500 1 1 Bayron Bibiana KB-FXYEW-Gayncr 310 IVF Work Phone: Comment on above: 06-19-2020 11:10-0500 0 1 Bayron Bibiana CH-RZNEY-Nkbywr 310 IVF Work Phone: Comment on above: Para Pain Scale Encounters Encounter Date Encounter Type Care Provider Facility Start: 12-29-2024 End: 12-29-2024 Bamboo flowsheet Tacho Shon DO Work Phone: [facility] Start: 12-29-2024 End: 12-29-2024 Bamboo flowsheet Tacho Shon DO Work Phone: [facility] Start: 10-13-2024 End: 10-13-2024 Emergency department patient visit Services [facility] Work Phone: [facility]Emergency [facility] Work Phone: Start: 07-12-2024 End: 07-12-2024 Follow-up encounter Mena CARRILLO Work Phone: [facility] Comment on above: 6 weeks f ollow-up; Missed menses Start: 07-12-2024 End: 07-12-2024 ambulatory Mena CARRILLO Work Phone: [facility] Start: 06-02-2024 End: 06-02-2024 Clinisync Result Encounter [...] Start: 05-17-2024 End: 05-17-2024 Departed Referred Services [facility] Work Phone: [facility] Start: 05-17-2024 End: 05-17-2024 Office outpatient visit 15 minutes Tacho Shon DO Work Phone: [facility] Comment on above: 37 weeks gestation o f ; Third trimester Start: 05-17-2024 End: 05-17-2024 ambulatory Services [facility] Work Phone: [facility] Work Phone: Start: 05-17-2024 [...] Result Encounter Tacho Shon DO Work Phone: [facility] External Department Unsolicited Start: 04-27-2024 End: 04-27-2024 ambulatory TACHO [facility] Start: 04-22-2024 End: 04-22-2024 Bamboo flowsheet Tacho Shon DO Work Phone: [facility] Start: 04-22-2024 End: 04-22-2024 Bamboo flowsheet Tacho Shon DO Work Phone: [facility] Start: 04-22-2024 End: 04-22-2024 Office outpatient visit 15 minutes Tacho Shon DO Work Phone: [facility] Comment on above: 33 weeks gestation o f ; Third trimester ; H/O premature delivery; Thyroid disease (CMS/HCC); H/O pre-eclampsia in prior , currently Start: 04-22-2024 End: 04-22-2024 ambulatory TACHO SHON Not Available Start: 04-06-2024 End: 04-06-2024 Bamboo flowsheet Mena CARRILLO Work Phone: [facility] Start: 04-06-2024 End: 04-06-2024 Bamboo flowsheet Mena CARRILLO Work Phone: [facility] Start: 04-06-2024 End: 04-06-2024 Office outpatient visit 15 minutes Mena CARRILLO Work Phone: [facility] Comment on above: Third trimester preg rosette; 31 weeks gestation of ; H/O premature delivery Start: 04-06-2024 End: 04-06-2024 ambulatory MENA ANN Not Available Start: 03-30-2024 End: 03-30-[facility] Start: 03-22-2024 End: 03-22-2024 Bamboo flowsheet [...] 03-05-2024 Emergency department patient visit Services [facility] Work Phone: [facility]-Emergency Room Work Phone: Start: [...] 02-26-2024 Emergency department patient visit Services [facility] Work Phone: [facility]-Emergency Room Work Phone: Start: [...] Not Available Start: 02-17-2024 End: 02-17-2024 ambulatory [facility] Start: 01-26-2024 End: 01-26-2024 Clinisync [...] SHON Not Available Start: 01-19-2024 End: 01-19-2024 Office outpatient new 45 minutes Zahra Donnelly MD Work Phone: [facility] Comment on above: History of pre-eclam psia in prior , currently (Primary Dx); History of delivery, currently ; Obesity affecting in second trimester, unspecified obesity type; BMI 45.0-49.9, adult ([facility]-HCC); Hypothyroidism affecting in second trimester; 21 weeks gestation of Start: 01-19-2024 End: 01-19-2024 ambulatory [facility] Start: 12-23-2023 End: 12-23-2023 ambulatory MENA ANN Not Available Start: 11-28-2023 End: 11-28-2023 Chart abstracting Zahra Donnelly MD Work Phone: [facility] Start: 11-25-2023 End: 11-25-2023 ambulatory TACHO MENENDEZ Not Available Start: 10-30-2023 End: 10-30-2023 ambulatory MENA ANN Not Available Start: 10-09-2023 End: 10-09-2023 ambulatory LATONIA GREENE Facility:[facility] Start: 10-06-2023 End: 10-06-2023 Emergency department patient visit Services [facility] Work Phone: [facility]Emergency Room Work Phone: Start: 09-17-2023 End: 09-17-2023 ambulatory ANNA ORTIZ Facility:[facility] Start: 09-17-2023 End: 09-17-2023 Nutrition therapy Anna Ortiz [facility] Comment on above: Obesity, Class III, BMI 40-49.9 (morbid obesity) (HCC) (Primary Dx); Dietary counseling Start: 09-17-2023 End: 09-17-2023 Telemedicine consultation with patient Anna Ortiz [facility] Start: 09-15-2023 Admission to same da surgery center Tonya Senior POLICE CHIEF DEPUTY.BANK MANAGER Work Phone: General Surgery Comment on above: Results Start: 09-15-2023 E-mail encounter fro m caregiver Tonya Senior POLICE CHIEF DEPUTY.BANK MANAGER Work Phone: General Surgery Start: 09-11-2023 Telephone encounter Tonya Senior APRN.BANK MANAGER Work Phone: General Surgery Comment on above: Results Start: 09-08-2023 End: 09-08-2023 ambulatory TONYA SENIOR Facility:[facility] Start: 09-05-2023 End: 09-05-2023 ambulatory TONYA SENIOR Facility:[facility] Start: 09-01-2023 End: 09-02-2023 ambulatory LATONIA GREENE Facility:[facility] Start: 09-01-2023 End: 09-01-2023 Admission to same day surgery center Latonia Greene PhD Work Phone: General Surgery BMI PSYL Comment on above: NO SHOW (Primary Dx) Start: 09-01-2023 End: 09-01-2023 Telemedicine consultation with patient Latonia Greene PhD Work Phone: General Surgery BMI PSYL Start: 08-20-2023 Admission to [facility] Tonya Senior APRN.BANK MANAGER Work Phone: General Surgery Comment on above: Welcome to Bariatric Surgery Start: 08-20-2023 E-mail encounter fro m caregiver Tonya Senior APRN.BANK MANAGER Work Phone: [place] [id number] Start: 08-20-2023 End: 08-20-2023 ambulatory Tonya Senior APRN.BANK MANAGER Work Phone: General Surgery Comment on above: Body mass index (BMI ) of 50-59.9 in adult (HCC) (Primary Dx); Angel's thyroiditis; High blood cholesterol Start: 08-20-2023 End: 08-20-2023 Telemedicine consultation with patient Tonya Senior APRN.BANK MANAGER Work Phone: [facility] Start: 08-07-2023 End: 08-07-2023 ambulatory Services Family Health Work Phone: [facility] Work Phone: Start: 08-07-2023 End: 08-07-2023 Patient encounter procedure Services cookdinner Work Phone: [facility] Work Phone: Start: 06-13-2023 End: 06-13-2023 ambulatory Nicholas Michaels Other [facility] [employer] Other Start: 06-13-2023 Follow-up encounter Nicholas Michaels [facility] Start: 06-13-2023 Registered Recurring Services Family Health Work Phone: [facility] Work Phone: Start: 06-13-2023 End: 06-13-2023 Patient encounter procedure Services Family Tally[facility] Work Phone: [facility]- Start: 01-08-2023 End: 01-08-2023 ambulatory Nicholas Michaels Other [facility] [employer] Other Start: 01-08-2023 Nutrition therapy Nicholas Michaels [facility] Start: 06-18-2022 End: 06-18-2022 Emergency department patient visit Services [facility] Work Phone: [facility]Emergency Room Work Phone: Start: 06-03-2022 End: 06-03-[address] TACHO MENENDEZ Facility:H1 Start: 12-02-2021 End: 12-02-2021 Emergency department patient visit Services [facility] Work Phone: [facility]Emergency Room Start: 07-08-2020 Patient encounter procedure Bayron Mccarty [id number] 310 IVF Work Phone: Start: 07-05-2020 Patient encounter procedure Bayron Mccarty EG-[id number]-[id number] 310 IVF Work Phone: Start: 06-19-2020 Patient encounter procedure Bayron Mccarty VW-[id number] 310 IVF Work Phone: Start: 04-14-2020 Patient encounter procedure Bayron Mccarty IL-CFRGP-[id number] 310 IVF Work Phone: Start: 03-28-2020 Patient encounter procedure Bayron Mccarty CV-IKSEV-Ubltcs 310 IVF Work Phone: Start: 2020 Patient encounter procedure Bayron Mccarty HH-[id number]-[id number] 310 IVF Work Phone: Start: 01-24-2020 Patient encounter procedure Bayron Mccarty IM-[id number]-[id number] 310 IVF Work Phone: Start: 08-01-2017 End: 08-02-2017 Ambulatory Agustin Patton Facility:[id number] Start: 07-14-2017 End: 07-15-2017 Ambulatory Agustin Patton Facility:CD:[id number] Procedures Date Procedure Procedure Detail Performing Clinician Start: 10-13-2024 X-ray of left knee, four views Services cookdinner Work Phone: Start: 06-02-2024 ALL CBC WITH AUTO DIFF Tacho Shon DO Work Phone: Start: 05-31-2024 HMHP CBC [...] stick/tabl et rgnt non-auto w/o micrscp Tacho Hson DO Work Phone: Start: 04-06-2024 Urnls dip stick/tabl et rgnt non-auto w/o micrscp Mena CARRILLO Work Phone: Start: 03-22-2024 Urnls dip stick/tabl et rgnt non-auto w/o micrscp Tacho Shon DO Work Phone: Start: 03-19-2024 ALL CBC WITH AUTO DIFF Mena CARRILLO Work Phone: Start: 03-05-2024 Plain chest X-ray Servi malina [facility] Work Phone: Start: 03-05-2024 Respiratory Panel (PCR) Services [employer] [facility] Work Phone: Start: 03-05-2024 Respiratory Panel (PCR) Services [facility] Work Phone: Start: 03-05-2024 Streptococcus pyogen es antigen assay Services [employer] [facility] Work Phone: Start: 02-26-2024 Streptococcus pyogen es antigen assay Services [employer] [facility] Work Phone: Start: 02-23-2024 Urnls dip stick/tabl et rgnt non-auto w/o micrscp Mena CARRILLO Work Phone: Start: 01-26-2024 ALL THYROID STIM HORMONE Tacho Shon DO Work Phone: Start: 01-20-2024 Urnls dip stick/tabl et rgnt non-auto w/o micrscp [facility] Work Phone: Start: 12-23-2023 Microscopic observat ion [Identifier] in Cervix by Cyto stain [facility] Work Phone: Start: 11-12-2023 Antibody screen Zahra sinha MD Work Phone: Start: 11-12-2023 Assay of thyroid sti mulating hormone tsh Not In System Ref Prov Start: 11-12-2023 HIV 1&2 AB/AG SCREEN (P24 AG) Not In System Ref Prov Start: 11-12-2023 Iaad ia hepatitis b surface antigen Not In System Ref Prov Start: 11-12-2023 Syphilis test non-tr eponemal antibody qual Not In System Ref Prov Start: 11-12-2023 TYPE AND SCREEN Not In System Ref Prov Start: 07-06-2020 Antibody screen Comment on above: Performed By: #### T +S #### [facility] [address] [place] [address] Start: 07-05-2020 IO Ultrasound, limit ed pelvic, follicle monitoring Bayron Mccarty Start: 06-26-2020 IO Ultrasound, limit ed pelvic, follicle monitoring Bayron Mccarty Start: 05-10-2020 Assay of progesterone Yonathan oslissette Mccarty Adenoid excision Bayron wallace Cholecystectomy Bayron Chen ey SARS Antigen (LFIA) Services [facility] Work Phone: Plan of Treatment Date Care Activity Detail Author Start: 12-22-2028 Screening for malign ant neoplasm of cervix [facility] Start: 12-22-2026 Screening for malign ant neoplasm of cervix Pap Smear [facility] Start: 03-01-2025 End: 03-01-2025 US MFM with or without consult US MFM with or without consult Imaging Routine Encounter for follow-up ultrasound of anatomy History of pre-eclampsia in prior , currently History of delivery, currently Obesity affecting in second trimester, unspecified obesity type Expected: 03/01/2025 (Approximate), Expires: 03/01/2025 [email or web address] Work Phone: Comment on above: Expected: 03/01/2025 (Approximate), Expires: 03/01/2025 Start: 01-18-2025 Adult BMI Screening Adult BMI Screen ing [facility] Start: 01-18-2025 Tobacco Screening Tobacco Screening [facility] Start: 01-10-2025 Influenza vaccination Influenza Vacc ine (#1) [facility] Start: 12-29-2024 End: 12-29-2024 Patient encounter procedure 12/29/2024 1:00 PM EDT Office Visit [facility] [address] [place] [address] Tacho Menendez, DO [address] [place] [address] [facility] Start: 05-27-2024 End: 05-27-2024 Patient encounter procedure 05/27/2024 10:20 AM EST Routine [facility] [address] [place] [address] Tacho Menendez, DO [address] [place] [address] [facility] Start: 05-26-2024 End: 05-26-2024 Patient encounter procedure [facility] Comment on above: Arrived Start: 05-17-2024 Following clinical pathway protocol [facility] Start: 05-17-2024 End: 05-17-2024 Patient encounter procedure [facility] Comment on above: Arrived Start: 05-17-2024 End: 05-17-2025 CULTURE, GROUP B STREP WITH SUSCEPTIBLITY CULTURE, GROUP B STREP WITH SUSCEPTIBLITY Lab Routine Third trimester Expected: 05/17/2024, Expires: 05/17/2025 [facility] Work Phone: Comment on above: Expected: 05/17/2024 , Expires: 05/17/2025 Start: 05-17-2024 Group B Streptococcu s Culture Group B Streptococcus Culture [facility] Start: 05-03-2024 End: 05-03-2024 Patient encounter procedure 05/03/2024 2:50 PM EST Routine [facility] [address] [address] Mena Ann PA [address] [place] [address] [facility] Start: 04-22-2024 End: 04-22-2025 [...] Routine [facility] [address] [place] [phone] Mena Ann PA [address] [place], [place] [id number] [facility] Start: 03-30-2024 End: 03-30-2024 Patient encounter procedure 03/30/2024 2:45 PM EST Appointment [facility] [address] [facility] [place] [phone] [facility] Start: 03-22-2024 End: 03-22-2024 Patient encounter procedure 03/22/2024 1:50 PM EST Routine [facility] [address] [facility] [address] [place] [phone] Tacho Menendez, DO [address] [place] [address] [facility] Start: 03-22-2024 End: 03-22-2024 Professional / ancillary services management 03/22/2024 1:00 PM EST Ancillary Procedure [facility] [address] [place] [phone] [facility] Start: 03-16-2024 End: 03-16-2024 Patient encounter procedure 03/16/2024 1:30 PM EST Routine [facility] [address] [place] [phone] Tacho Menendez, DO [address] [place] [address] [facility] Start: 02-23-2024 End: 02-22-2025 [...] mellitus screening Expected: 02/23/2024 (Approximate), Expires: 02/22/2025 [facility] Comment on above: Expected: 02/23/2024 (Approximate), Expires: 02/22/2025 Start: 02-23-2024 End: 02-22-2025 US for US OB SCAN FOR GROWTH Imaging Routine size inconsistent with dates H/O premature delivery Expected: 02/23/2024 (Approximate), Expires: 02/22/2025 [facility] Comment on above: Expected: 02/23/2024 (Approximate), Expires: 02/22/2025 Start: 02-23-2024 End: 02-23-2024 Patient encounter procedure 02/23/2024 1:40 PM EDT Routine [facility] [address] [phone] Mena Ann PA [address] [place] [address] Arrived [facility] Comment on above: Arrived Start: 02-18-2024 End: 02-18-2024 Patient encounter procedure 02/18/2024 2:30 PM EDT Routine [facility] [address] [facility] [place] [address] Mena Ann PA [address] [place] [address] [facility] Start: 02-17-2024 End: 02-17-2024 Patient encounter procedure 02/17/2024 2:45 PM EDT Appointment [facility] [address] [place] [address] [facility] Start: 01-19-2024 End: 01-19-2024 Patient encounter procedure 01/19/2024 3:30 PM EDT Office Visit Maternal- Medicine at [facility] [address] [place] [phone] Zahra Donnelly MD [address], [address] [place] [address] Maternal- Medicine at [facility] Start: 01-19-2024 End: 01-19-2024 Patient encounter procedure 01/19/2024 2:15 PM EDT Appointment [facility] Imaging [address] [facility] [place] [phone] [facility] - [facility] US Imaging Start: 01-11-2024 COVID-19 Vaccine ( season) COVID-19 Vaccine () [facility] Start: 01-11-2024 Influenza vaccination [facility] Start: 09-17-2023 End: 09-17-2023 Nutrition therapy 09/17/2023 2:30 PM EDT [facility] Nutrition Therapy [address] [id number] Anna Ortiz, RD [address] [place] [address] Red/Davis/0 Diet/[place] Nutrition Therapy Comment on above: Red/Davis/0 Diet/ [place] Start: 09-12-2023 End: 09-12-2023 Admission to same day surgery center 09/12/2023 3:30 PM EDT [facility] General Surgery [address] [place] [address] Joo Bradley MD [address] [place] [address] Red/Kirk/0 Diet/[place] General Surgery Comment on above: Red/Kirk/0 Diet/Anth em Start: 09-05-2023 End: 09-05-2023 ambulatory 09/05/2023 11:45 AM EDT Results Only [facility] [address] [place] [address] [place] [address] [facility] Start: 08-20-2023 End: 11-19-2023 25-hydroxyvitamin D3 [Mass/volume] in Serum or Plasma VITAMIN D 25 HYDROXY Lab Routine Body mass index (BMI) of 50-59.9 in adult (HCC) Expected: 08/20/2023, Expires: 11/19/2023 [facility] Work Phone: Comment on above: Expected: 08/20/2023 , Expires: 11/19/2023 Start: 08-20-2023 End: 11-19-2023 CBC W Auto Differential panel - Blood COMPLETE BLOOD COUNT AND DIFFERENTIAL Lab Routine Body mass index (BMI) of 50-59.9 in adult (HCC) Expected: 08/20/2023, Expires: 11/19/2023 [facility] Work Phone: Comment on above: Expected: 08/20/2023 , Expires: 11/19/2023 Start: 08-20-2023 End: 11-19-2023 Cobalamin (Vitamin B12) [Mass/volume] in Serum or Plasma VITAMIN B12 Lab Routine Body mass index (BMI) of 50-59.9 in adult (HCC) Expected: 08/20/2023, Expires: 11/19/2023 [facility] Work Phone: Comment on above: Expected: 08/20/2023 , Expires: 11/19/2023 Start: 08-20-2023 End: 11-19-2023 Comprehensive metabolic 2000 panel - Serum or Plasma COMPREHENSIVE METABOLIC PANEL Lab Routine High blood cholesterol Body mass index (BMI) of 50-59.9 in adult (HCC) Expected: 08/20/2023, Expires: 11/19/2023 [facility] Work Phone: Comment on above: Expected: 08/20/2023 , Expires: 11/19/2023 Start: 08-20-2023 End: 11-19-2023 Ferritin [Mass/volume] in Serum or Plasma FERRITIN Lab Routine Body mass index (BMI) of 50-59.9 in adult (HCC) Expected: 08/20/2023, Expires: 11/19/2023 [facility] Work Phone: Comment on above: Expected: 08/20/2023 , Expires: 11/19/2023 Start: 08-20-2023 End: 11-19-2023 Folate [Mass/volume] in Serum or Plasma FOLATE, SERUM Lab Routine Body mass index (BMI) of 50-59.9 in adult ([facility]) Expected: 08/20/2023, Expires: 11/19/2023 [facility] Work Phone: Comment on above: Expected: 08/20/2023 , Expires: 11/19/2023 Start: 08-20-2023 End: 11-19-2023 Helicobacter pylori IgG Ab [Presence] in Serum or Plasma by Immunoassay H PYLORI IGG AB Lab Routine Body mass index (BMI) of 50-59.9 in adult ([facility]) Expected: 08/20/2023, Expires: 11/19/2023 [facility] Work Phone: Comment on above: Expected: 08/20/2023 , Expires: 11/19/2023 Start: 08-20-2023 End: 11-19-2023 Hemoglobin A1c in Blood HEMOGLOBIN A1C Lab Routine Body mass index (BMI) of 50-59.9 in adult ([facility]) Expected: 08/20/2023, Expires: 11/19/2023 [facility] Work Phone: Comment on above: Expected: 08/20/2023 , Expires: 11/19/2023 Start: 08-20-2023 End: 11-19-2023 Iron and Iron binding capacity panel - Serum or Plasma IRON AND TIBC Lab Routine Body mass index (BMI) of 50-59.9 in adult ([facility]) Expected: 08/20/2023, Expires: 11/19/2023 [facility] Work Phone: Comment on above: Expected: 08/20/2023 , Expires: 11/19/2023 Start: 08-20-2023 End: 11-19-2023 Lipid 1996 panel - Serum or Plasma LIPID PANEL BASIC Lab Routine High blood cholesterol Body mass index (BMI) of 50-59.9 in adult ([facility]) Expected: 08/20/2023, Expires: 11/19/2023 [facility] Work Phone: Comment on above: Expected: 08/20/2023 , Expires: 11/19/2023 Start: 08-20-2023 End: 11-19-2023 Natriuretic peptide.B prohormone N-Terminal [Mass/volume] in Serum or Plasma NT PRO BNP Lab Routine Body mass index (BMI) of 50-59.9 in adult ([facility]) Expected: 08/20/2023, Expires: 11/19/2023 [facility] Work Phone: Comment on above: Expected: 08/20/2023 , Expires: 11/19/2023 Start: 08-20-2023 End: 11-19-2023 NICOTINE & METAB, UR NICOTINE & METAB, UR Lab Routine Body mass index (BMI) of 50-59.9 in adult ([facility]) Expected: 08/20/2023, Expires: 11/19/2023 [facility] Work Phone: Comment on above: Expected: 08/20/2023 , Expires: 11/19/2023 Start: 08-20-2023 End: 11-19-2023 Thyrotropin [Units/volume] in Serum or Plasma THYROID STIMULATING HORMONE Lab Routine Angel's thyroiditis Body mass index (BMI) of 50-59.9 in adult ([facility]) Expected: 08/20/2023, Expires: 11/19/2023 [facility] Work Phone: Comment on above: Expected: 08/20/2023 , Expires: 11/19/2023 Start: 08-20-2023 End: 11-19-2023 TOXICOLOGY SCREEN, ROUTINE URINE TOXICOLOGY SCREEN, ROUTINE URINE Lab Routine Body mass index (BMI) of 50-59.9 in adult ([facility]) Expected: 08/20/2023, Expires: 11/19/2023 [facility] Work Phone: Comment on above: Expected: 08/20/2023 , Expires: 11/19/2023 Start: 08-20-2023 End: 11-19-2023 VITAMIN B1 (THIAMINE), WHOLE BLOOD VITAMIN B1 (THIAMINE), WHOLE BLOOD Lab Routine Body mass index (BMI) of 50-59.9 in adult (HCC) Expected: 08/20/2023, Expires: 11/19/2023 [facility] Work Phone: Comment on above: Expected: 08/20/2023 , Expires: 11/19/2023 Start: 05-12-2023 Behavioral Health Screening Behavioral Health Screening [facility] Start: 01-10-2023 Covid-19 Vaccine ( season) Covid-19 Vaccine () [facility] Start: 12-02-2021 Plain chest X-ray XR chest 1V portab [facility] Start: 12-02-2021 XR Chest Single view [facility] Work Phone: Start: 2021 Screening for malign ant neoplasm of cervix HPV Testing [facility] Start: 2012 Screening for malign ant neoplasm of cervix [facility] Start: 2010 DTaP,Tdap and Td Vaccines (1 - Tdap) DTaP,Tdap and Td Vaccines (1 - Tdap) [facility] Start: 2010 Hepatitis B Vaccine (1 of 3 - 19+ 3-dose series) Hepatitis B Vaccine (1 of 3 - 19+ 3-dose series) [facility] Start: 2009 Adult BMI Follow Up Plan Adult BMI Follow Up Plan [facility] Start: 2009 Adult BMI Screening Adult BMI Screen ing [facility] Start: 2009 HIV screening HIV Screening [facility] Start: 2003 Depression Screening Depression Scre ening [facility] Start: 2003 Tobacco Screening Tobacco Screening [facility] Start: 2002 DTaP,Tdap and Td Vaccines (6 - Tdap) DTaP,Tdap and Td Vaccines (6 - Tdap) [facility] Start: 2002 Urine microalbumin profile DTaP,Tdap,Td Vaccine (6 - Tdap) [facility] End: 08-19-2024 ECG COMPLETE ECG COMPLETE ECG Routine Body mass index (BMI) of 50-59.9 in adult (HCC) 1 Occurrences starting 08/20/2023 until 08/19/2024 [facility] Work Phone: Comment on above: 1 Occurrences starti ng 08/20/2023 until 08/19/2024 Patient Education [facility] Work Phone: Patient referral [facility] Work Phone: Thyrotropin [Units/volume] in Serum or Plasma TSH Lab Routine Thyroid disease (CMS/HCC) Ordered: 04/22/2024 [facility] Comment on above: Ordered: 04/22/2024 End: 09-18-2024 US Abdomen RUQ US ABD RIGHT UPPER QUADRANT Radiology Routine Body mass index (BMI) of 50-59.9 in adult (HCC) 1 Occurrences starting 08/20/2023 until 09/18/2024 [facility] Work Phone: Comment on above: 1 Occurrences starti ng 08/20/2023 until 09/18/2024 End: 09-18-2024 XR Chest PA and Lateral XR CHEST 2V FRONTAL/LAT Radiology Routine Body mass index (BMI) of 50-59.9 in adult (HCC) 1 Occurrences starting 08/20/2023 until 09/18/2024 [facility] Work Phone: Comment on above: 1 Occurrences starti ng 08/20/2023 until 09/18/2024 [id number] 310 IVF Work Phone: [facility] NEGATED: Highlighted row has been ruled out! Planned Goals not documented [id number] 310 IVF Work Phone: Immunizations Immunization Date Immunization Notes Care Provider Sonia miramontes 03-09-2024 influenza virus vaccine, unspecified formulation Tacho Menendez DO Work Phone: [facility] 03-11-2023 influenza virus vaccine, unspecified formulation Zahra Donnelly MD Work Phone: [facility] Payers Date Payer Category Payer Self-pay [id number] 2022 Medicaid [id number] 2022 Medicaid [id number] 1991 Unknown [id number] 2.16.840.1.954290.3.579.2.59 3 1991 Unknown [id number] 2.16.840.1.592630.3.579.2.12 86 1991 Unknown [id number] 2.16.840.1.779090.3.579.2.12 86 1991 Unknown [id number] 2.16.840.1.225924.3.579.2.12 86 1991 Unknown [id number] 2.16.840.1.527578.3.579.2.12 86 1991 Unknown [id number] 2.16.840.1.962661.3.579.2.12 86 1991 Unknown [id number] 2.16.840.1.419074.3.579.2.12 59 1991 Unknown [id number] 2.16.840.1.425311.3.579.2.12 59 1991 Unknown [id number] 2.16.840.1.222880.3.579.2.12 59 1991 Unknown [id number] 2.16.840.1.623495.3.579.2.12 59 1991 Unknown [id number] 2.16.840.1.364577.3.579.2.12 59 1991 Unknown [id number] 2.16.840.1.589782.3.579.2.12 59 1991 Unknown [id number] 2.16.840.1.638584.3.579.2.12 59 1991 Unknown [id number] 2.16.840.1.098114.3.579.2.12 59 1991 Unknown [id number] 2.16.840.1.631300.3.579.2.12 59 1991 Unknown [id number] 2.16.840.1.451465.3.579.2.12 59 1991 Unknown [id number] 2.16.840.1.942105.3.579.2.12 59 1991 Unknown [id number] 2.16.840.1.565245.3.579.2.12 59 1959 Medicaid [id number] Private Health Insurance [facility] [id number] Unknown [id number] Unknown Regular Insurance [id number] Unknown [employer] [id number] Unknown Regular Auto/Medical [id number] Unknown [id number] 2.16.840.1.742220.3.579.2.53 1 Unknown [id number] 2.16.840.1.066738.3.579.2.53 1 Unknown [id number] 2.16.840.1.011531.3.579.2.53 1 Unknown [id number] 2.16.840.1.771589.3.579.2.53 1 Social History Date Type Detail Facility Start: 12-02-2021 End: 05-17-2023 Tobacco smoking status NHIS Never smoked tobacco (finding) [facility] Start: 1990 Sex Assigned At Female F [facility] Start: 08-20-2023 End: 10-30-2023 Sex Assigned At [employer] Other Start: 05-17-2023 End: 08-20-2023 Tobacco use and exposure Smokeless tobacco non-user [facility] Work Phone: Start: 08-20-2023 End: 07-12-2024 Alcohol intake Current drinker of alcohol (finding) [facility] Start: 08-20-2023 End: 10-30-2023 History of Social function [facility] National Score (1-100), lower number is lower risk 86 [facility] Start: 08-20-2023 Alcohol Comment occ [facility] Start: 1990 Sex Assigned At Not on file C [facility] Start: 08-26-2023 Gender identity Identifies as female gender (finding) [facility] Start: 08-26-2023 Sexual orientation Heterosexual (fin ding) [facility] Start: 09-07-2023 [facility] How often to you hav [...] caffeine: occa sional chocolate [facility] Start: 05-19-2024 End: 10-13-2024 Sex Female (finding) [facility] Start: 11-28-2023 End: 01-19-2024 Alcoholic beverage intake Ex-drinker (finding) [facility] NEGATED: Highlighted row - - [id number] 310 IVF Work Phone: NEGATED: Highlighted row [facility] Functional Status Date Assessment Result Facility NEGATED: Highlighted row Functional performance Functional status health issues are not documented Disease [id number] 310 IVF Work Phone: Mental Status Date Assessment Result Facility NEGATED: Highlighted row Cognitive function [Interpretation] Cognitive status health issues are not documented Disease [id number] 310 IVF Work Phone: Clinical Notes 01-08-2023 to 07-12-2024 GERARDO Vazquez - 07/12/2024 3:50 PM OSVALDOJose Juancandida Rebecca, ZAC - 05/26/2024 2:10 PM Craig Romanmerissa, ZAC - 05/17/2024 3:10 PM GERARDO Hunter - 05/03/2024 2:50 PM GERARDO Hunter - 04/06/2024 1:30 PM EST Note Date & Type Note Facility 07-12-2024 History of Presen t illness Narrative Reason for Appointment: Patient ID: Jaleesa Arrieta is a 34 y.o. female who presents for Care (Pt present today for a 6 week post visit. Pt delivered on 05/31/2024 vaginally.) Patient presents today for Post Follow Up appointment. MEDICATIONS Current Outpatient Medications Medication Instructions levothyroxine (Synthroid, Levoxyl) 50 MCG tablet TAKE 1/2 TABLET BY MOUTH IN THE MORNING BEFORE A MEAL MV & Min w/FA-DHA ( Gummies) 0.18-25 [...] OTHER SURGICAL HISTORY 2020 IUI 07/10/20 [facility] SALPINGECTOMY Left 2011 ectopic REVIEW OF [...] reviewed. Vitals: Estimated body mass index is 49.57 kg/m as calculated from the following: Height as of 08/26/22: 5' 6 . Weight as of 05/26/24: 307 lb 1.9 oz. BP: Patient's last menstrual period was 08/24/2023. ASSESSMENT & PLAN ICD-10-CM 1. 6 weeks follow-up Z39.2 Post Follow Up: Patient is doing well. Patient presents today for 6 week visit. Patient is s/p Vaginal delivery. Patient states depression but denies suicidal and homicidal ideations. All options were discussed with the patient regarding control and patient desires none at this time. Follow Up: Patient is to return for annual unless needed otherwise. Documented by Toshia Castillo MA on behalf of: GERARDO Vazquez documented in this encounter [facility] 05-26-2024 History of Presen t illness Narrative [...] OTHER SURGICAL HISTORY 2020 IUI 07/10/20 [facility] SALPINGECTOMY Left 2011 ectopic REVIEW OF [...] nursing note reviewed. Exam conducted with a catholic priest present. Vitals: Estimated body mass index is [...] Tacho Menendez DO documented in this encounter [facility] 05-17-2024 History of Presen t illness [...] OTHER SURGICAL HISTORY 2020 IUI 07/10/20 [facility] SALPINGECTOMY Left 2012 ectopic REVIEW OF [...] nursing note reviewed. Exam conducted with a catholic priest present. Vitals: Estimated body mass index is [...] Tacho Menendez DO documented in this encounter [facility] 05-03-2024 History of Presen t illness [...] OTHER SURGICAL HISTORY 2020 IUI 07/10/20 [facility] SALPINGECTOMY Left 2012 ectopic REVIEW OF [...] of: GERARDO Vazquez documented in this encounter [facility] 04-22-2024 History of Presen t illness [...] OTHER SURGICAL HISTORY 2020 IUI 07/10/20 [facility] SALPINGECTOMY Left 2011 ectopic REVIEW OF [...] nursing note reviewed. Exam conducted with a catholic priest present. Vitals: Estimated body mass index is [...] Tacho Menendez DO documented in this encounter [facility] 04-06-2024 History of Presen t illness [...] OTHER SURGICAL HISTORY 2020 IUI 07/10/20 [facility] SALPINGECTOMY Left 2012 ectopic REVIEW OF [...] of: GERARDO Vazquez documented in this encounter [facility] 03-22-2024 History of Presen t illness [...] @ age 6 or 7 CHOLECYSTECTOMY 07/20/2019 ([place]) ERCP 06/2019 OTHER SURGICAL HISTORY 2020 IUI 07/10/20 [facility] SALPINGECTOMY Left 2011 ectopic REVIEW OF [...] nursing note reviewed. Exam conducted with a catholic priest present. Vitals: Estimated body mass index is [...] Tacho Menendez DO documented in this encounter [facility] 02-23-2024 History of Presen t illness [...] OTHER SURGICAL HISTORY 2020 IUI 07/10/20 [facility] SALPINGECTOMY Left 2011 ectopic REVIEW OF [...] nursing note reviewed. Exam conducted with a catholic priest present. Vitals: Estimated body mass index is [...] of: GERARDO Vazquez documented in this encounter [facility] 01-20-2024 History of Presen t illness [...] with BMI of 50.0-59.9, adult ([facility]) Vaginal delivery Social History Tobacco Use Smoking [...] OTHER SURGICAL HISTORY 2020 IUI 07/10/20 [facility] SALPINGECTOMY Left 2011 ectopic REVIEW OF [...] nursing note reviewed. Exam conducted with a catholic priest present. Vitals: Estimated body mass index is [...] notified. Pt has follow up appt at [facility] in four weeks. Pt to return to office in four weeks for scheduled OB appt. Documented by Priscilla Fernandez LPN on behalf of: Tacho Menendez DO documented in this encounter [facility] 01-19-2024 History of Presen t illness Narrative Headache/epigastric pain/blurry vision/swelling? ALTAMIRANO's mild occasionally Cramping/contractions? Lower belly cramping Abnormal vaginal discharge? no Spotting/vaginal bleeding? no Loss or gush of fluid like your water may have broken? no Do you have cats at home? no Do you change the litter box (reason: risk of toxoplasmosis)? no Genetic testing done this here or other office? yes Have you been seen here at [facility] in a previous ? no Recent ER visits or hospitalizations? no Bring blood sugar log or meter with you today? (Please bring them with you for every visit at [facility]) n/a Flu vaccine (Mar-July)? no Traveled outside the country in the past 6 months? no Any concerns that you would like me to mention to the provider today? no [facility] Consult Note Reason For Consult: HPI: Jaleesa Arrieta is a 33 y.o. @ 21w1d who presented for consultation from Tacho Shaw DO regarding Chief Complaint Patient presents with Hashimotos's Disease Hypothyroidism H/X Preeclampsia H/X PTD Patient Active Problem List Diagnosis BMI 45.0-49.9, adult ([facility]) History of pre-eclampsia in prior , currently Obesity affecting in second trimester She reports that she is doing well. She reports normal movements and she denies LOF, contractions, vaginal bleeding, headache, blurry vision, RUQ pain and edema. The primary encounter diagnosis was History of pre-eclampsia in prior , currently . Diagnoses of History of delivery, currently , Obesity affecting in second trimester, unspecified obesity type, BMI 45.0-49.9, adult ([facility]), Hypothyroidism affecting in second trimester, and 21 weeks gestation of were also pertinent to this visit. She has had low risk aneuploidy screen for select aneuploidy of chromosomes 21, 13, 18 and sex chromosomes. Review of systems: Review of systems was noncontributory Complications: Problem List Items Addressed This Visit Digestive BMI 45.0-49.9, adult ([facility]) Obesity affecting in second trimester Other History of pre-eclampsia in prior , currently - Primary Relevant Medications aspirin 81 mg chewable tablet Other Visit Diagnoses History of delivery, currently Hypothyroidism affecting in second trimester 21 weeks gestation of PMH: Past Medical History: Diagnosis Date Abdominal pain Cholelithiasis Ectopic of left ovary Angel's disease Hypothyroidism Morbid obesity ([facility]) PSHIST: Past Surgical History: Procedure Laterality Date ADENOIDECTOMY CHOLECYSTECTOMY ERCP SALPINGECTOMY OB Hx: OB History Para Term AB Living 3 1 1 1 1 SAB IAB Ectopic Multiple Live Births 1 # Outcome Date GA Lbr Venkata/2nd Weight Sex Type Anes PTL Lv 3 Current 2 03/13/21 36w0d 3.005 kg M Complications: Hypertension 1 Ectopic 2012 PREECLAMPSIA SCREEN ([place] Preventive Services Task Force) Patient is at high risk if 1 or more factors present. Incidence of preeclampsia is ? 8%: Prior preeclampsia YES Multiple gestation NO Chronic hypertension NO Type 1 or 2 diabetes NO Renal disease NO Autoimmune disease NO (Lupus, APLS) Patient is at moderate risk is several risk factors are present: Nulliparity NO Obesity (BMI ? 30) YES Family history of preeclampsia {NO (Mother, sister) NO Sociodemographic characteristics NO (AA, low socioeconomic status) Age ? 36 NO Personal history factor NO (Previous SGA, adverse outcome, > 10 years from last ) Allergies: No Known Allergies Meds: Prior to Admission medications Medication Sig Start Date End Date Taking? Authorizing Provider levothyroxine (SYNTHROID, LEVOTHROID) 50 MCG tablet Take 1 tablet (50 mcg total) by mouth in the morning. Yes Not In System Ref Prov PNV 19/iron ps,heme/folic/dha ( MV & MIN ORAL) Take 1 tablet by mouth in the morning. Yes Not In System Ref Prov magnesium oxide (MAGOX) 400 mg tablet Take 1 tablet (400 mg total) by mouth in the morning. Patient not taking: Reported on 01/19/2024 Not In System Ref Prov ondansetron ODT (ZOFRAN ODT) 4 mg disintegrating tablet Dissolve 1 tablet (4 mg total) on tongue every 8 (eight) hours as needed for nausea or vomiting. Patient not taking: Reported on 01/19/2024 Not In System Ref Prov SH: Social History Socioeconomic History Marital status: Single Spouse name: Not on file Number of children: Not on file Years of education: Not on file Highest education level: Not on file Occupational History Not on file Tobacco Use Smoking status: Never Smokeless tobacco: Never Vaping Use Vaping status: Never Used Substance and Sexual Activity Alcohol use: Not Currently Drug use: Never Sexual activity: Defer Other Topics Concern Not on file Social History Narrative Not on file Social Determinants of Health Financial Resource Strain: Not on file Food Insecurity: No Food Insecurity (01/19/2024) Hunger Screening Food Insecurity - Worry: Never True Food Insecurity - Inability: Never True Transportation Needs: Not on file Physical Activity: Not on file Stress: Not on file Social Connections: Not on file Interpersonal Safety: Not on file Housing Instability: Not on file Physical Exam: Vital Signs Vitals: 01/19/24 1456 BP: 126/69 BP Site: Right Arm BP Postition: Sitting BP CUFF SIZE: L (13-17 inches) Pulse: 89 Weight: (!) 136.2 kg (300 lb 3.2 oz) Height: 167.6 cm (5' 6 ) Physical Exam: Gen: Not in acute distress, alert and oriented. Eyes: Pupils equal and reactive Chest: Nonlabored breathing Cardiac: Pulse was regular on vital signs assessment Abdomen: Gravid Skin/extremities: Appears intact. No visible lesions MS:no visible edema Neuro: No focal deficits Assessment/Plan 33 y.o. @ [facility] here for consultation regardin. History of pre-eclampsia in prior , currently 2. History of delivery, currently Women with history of preeclampsia are at increased risk for recurrent preeclampsia in a subsequent . However, the recurrence risk varies with the severity and time of onset of the initial episode. Women with early-onset, severe preeclampsia are at greatest risk of recurrence (as high as 25 to 65 percent). The risk of preeclampsia in a second is much lower (5 to 7 percent) for women who had preeclampsia without severe features in their first and less than 1 percent in women who had a normotensive first . According to ACOG, women with any of the high-risk factors for preeclampsia (previous with preeclampsia, multifetal gestation, renal disease, autoimmune disease, type 1 or type 2 diabetes mellitus, and chronic hypertension) and those with more than one of the moderate-risk factors (first , maternal age of 35 years or older, a body mass index of more than 30, family history of preeclampsia, sociodemographic characteristics, and personal history factors) should receive low-dose (81 mg/day) aspirin for preeclampsia prophylaxis, initiated between 12 weeks and 28 weeks of gestation (optimally before 16 weeks of gestation) and continuing until delivery. Recommend Baby Aspirin 81 mg, and encouraged her to continue BASA throughout the . 3. Obesity affecting in second trimester, unspecified obesity type 4. BMI 45.0-49.9, adult ([facility]) Reviewed today the diagnosis as well as risks associated with obesity during . Compared with normal-weight women, obese women are at increased risk of cardiac dysfunction, proteinuria, sleep apnea, nonalcoholic fatty liver disease, gestational diabetes mellitus, and preeclampsia. Obese gravidas are at an increased risk for stillbirth. We reviewed that behavioral interventions focused on improving both diet and exercise have been shown to improve outcomes. Excess gestational weight gain is a significant risk factor for weight retention. This further increases the risk of metabolic dysfunction and pregravid obesity in future pregnancies. The IOM guidelines recommend a total weight gain of 6.8-11.3 kg (15-25 lb) for overweight women (BMI of 25-29.9). Given the limited data on weight gain by obesity class, the IOM recommendation for weight gain is 5.0-9.1 kg (11-20 lb) for all obese women. Reviewed that some women do not gain weight during and that is acceptable as long as that is interval growth. Reviewed that should not be the time to target weight loss. Early screening for glucose intolerance (gestational diabetes or overt diabetes) should be based on risk factors, including maternal BMI of 30 or greater, known impaired glucose metabolism, or previous gestational diabetes. For patients with prepregnancy BMI 40 or greater, surveillance is recommended in view of increased risk for stillbirth. 5. Hypothyroidism affecting in second trimester Reviewed with the patient today that with her elevated TSH and low free T4 that her diagnosis is consistent with overt hypothyroidism. Reviewed with her the importance of normal thyroid function for metabolism and considerations during . Reviewed with her that the thyroid gland begins concentrating iodine and producing thyroid hormone by about 11-12 weeks of gestation. It is important for brain development especially before the thyroid begins functioning. Reviewed that euthyroidism is important for development as well as placental function. This is important throughout the whole . Hypothyroidism has been associated with an increased risk of several complications, including but not limited to hypertensive disorders, placental abruption, , growth restriction, and hemorrhage. TSH should be measured every four weeks with a target of <2.5 mU/L. 6. 21 weeks gestation of History of pre-eclampsia in prior , currently [O09.299] Recommendations: Baby aspirin 81 mg q.day TSH Q 4 weeks. Early GDM testing Follow-up in 4 weeks for completion of limited anatomy and growth evaluation Serial growth assessments every 4 weeks after the anatomy scan testing to be initiated at 34 weeks weekly with twice weekly testing at 36 weeks and weekly DVP Delivery recommended at 39 weeks, earlier as clinically indicated Plan reviewed with patient. She vocalized understanding all questions answered. The patient is to continue with routine care in your office [facility], the CDC, and other organizations representing maternal and public health professionals recommend that , , and lactating people and those considering receive the COVID-19 vaccination. Vaccination is the best method to reduce maternal and complications of SARS-CoV-2 infection. This document was created with [employer] technology. Though I make every effort to review the dictation as it is transcribed, on occasion the spoken word can be misinterpreted by the technology leading to inappropriate words, phrases, or sentences. This note is addressed to the requesting provider as a consultation for clinical guidance. Specific medical abbreviations are occasionally used and those are generally approved by the [place]?Board of?Obstetrics and?Gynecology?as well as?Aliya s abbreviations. The above plan of care was based solely on the diagnoses for which a consultation was requested. ?More frequent testing may be indicated based on her other medical/obstetrical conditions. The management of other or medical conditions is beyond the scope of requested consultation and will continue to be followed by the primary assignment desk assistant or primary care provider. Thank you for allowing me to participate in her care. Please contact me if you have any concerns. Total time spent was 45 minutes: Preparing to see the patient (e.g., review of tests) Obtaining and/or reviewing separately obtained history Performing a medically appropriate examination and/or evaluation Counseling and educating the patient/family/caregiver Ordering medications, tests, or procedures Referring and communicating with other health landcare facilitator (not separately reported) Documenting clinical information in the electronic or other health record Independently interpreting results (not separately reported) and communicating results to the patient/family/caregiver Care coordination (not separately reported) documented in this encounter [email or web address] Note HNO ID: [id number] Author: LATONIA GREENE, PhD Service: ? Author Type: Psychologist Type: Progress Notes Filed: 10/17/2023 11:09 Note Text: [facility] BARIATRIC SURGERY BEHAVIORAL HEALTH EVALUATION BMI Surgical Pathway Visit type: Psychology Visit DATE OF SERVICE: October 09, 2023 TIME OF SERVICE: 1:00 PM - 2:00 PM COST CENTER: [facility] CPT CODE: - [id number] Virtual Psych Diagnostic Eval BILLING CODE: ENDO PSYL LASHON Greene DATE OF FIRST SERVICE THIS CYCLE: October 09, 2023 SESSION #: 1 I have communicated my name and active licensure. The patient's identity and physical location (see below) were verified at the time of this visit. Either the patient or their legal pharmacy services representative has been informed of the risks and benefits of -- and alternatives to -- treatment through a remote evaluation and consents to proceed with the evaluation remotely. This evaluation is NOT intended for forensic, disability or child custody purposes. The patient e-signed a copy of the consent form via [employer] and the [facility] insurance benefits, fees for service, emergency procedures, [...] in case of emergency and/or disconnection. [address] [place] [address] (Change address in [facility], was mother) Alternate Accessories Repairer Bibi Arrieta (Mother) [phone] (Home Phone) Patient identified the following plan to follow in case of emergency: Go to emergency room (nearest is [facility]) or call 911. IDENTIFYING INFORMATION: Ms. [...] pt has l (more content not included)... [facility] 09-22-2023 Telephone encounter Note Can not schedule patient as there is already a patient scheduled for that day and time. Please advise. Thanks Meme Castrejon [facility] 09-22-2023 Telephone encounter Note ----- Message from Anna Ortiz RD sent at 09/17/2023 3:17 PM EDT ----- Regarding: virtual follow up Please schedule for a virtual up 6/7 at 1. The patient is aware, no call needed. Thank you! Anna [facility] 09-22-2023 Miscellaneous Notes Can not [...] levels, no answer, left vm. Tonya Senior APRN.BANK MANAGER documented in this encounter [facility] 09-17-[address] - 09/17/2023 3:12 PM EDT 1. Read Nutritional Guidelines Section of Your Guide to Surgery by next session [email or web address] 2. Do not skip meals - [...] full-liquid diet. Examples: Slim Fast Advanced Nutrition [place] Breakfast Essentials Light Start Drink mixed with [...] AM, 2 in the PM) www.[email or web address].com - [employer]: 1 Bariatric Multivitamin and Calcium Citrate (total of 2166-8105 mg/day) * take calcium citrate separately from Multivitamin with iron at least 2 hours apart and 4 hours apart from additional calcium www.[employer] - Bariatric Choice: 4 Complete Multivitamins (chewables) per day Www.bariatricchoice.com - Bariatric Advantage: 2 Multivitamins and 3 Calcium Citrate Chewables per day * take calcium citrate separately from Multivitamin with iron at least 2 hours apart and 4 hours apart from additional calcium Www.bariatricadvantage.Utility Funding Start practicing eating slowly, chewing each bite of food 20-30 x per bite, making meals last 20-30 minutes, separatign food and fluids by 30 minutes . Have all meals and snacks at the table with no distractions. Make placemat for reminders; work towards normal sleep/wake pattern Pre-op goal weight: 281 pounds Protein needs: 85 grams per day documented in this encounter [facility] 09-17-2023 Note HNO ID: [id number] Author: ANNA ORTIZ RD Service: ? Author Type: Registered Dietitian Type: Progress Notes Filed: 09/17/2023 15:19 Note Text: [facility] Nutrition Therapy: Virtual Consult - Initial Assessment I have communicated my name and active licensure. The patient?s identity and physical location were verified at the time of this visit. Either the patient or their legal pharmacy services representative has been informed of the risks [...] Your Guide to Surgery by next session [email or web address] 2. Do not skip [...] Examples: ? Slim Fast Advanced Nutrition ? [place] Breakfast Essentials ?Light Start? Drink mixed with [...] in the AM, 2 in the PM) www.bariatricfusion.[employer] - [employer]: 1 Bariatric Multivitamin and Calcium Citrate (total of 3241-4529 mg/day) * take calcium citrate separately from Multivitamin with iron at least 2 hours apart and 4 hours apart from additional calcium www.[employer] Funding - Bariatric Choice: 4 Complete Multivitamins (chewables) per day Www.bariatricchoice.Ut[employer] Funding - Bariatric Advantage: 2 Multivitamins and 3 Calcium Citrate Chewables per day * take calcium citrate separately from Multivitamin with iron at least 2 hours apart and 4 hours apart from additional calcium Www.bariatricadvantage.Ut[employer] Funding Start practicing eating slowly, chewing each bite [...] and using Phen (more content not included)... [facility] 09-17-2023 History of Presen t illness Narrative [facility] Nutrition Therapy: Virtual Consult - Initial Assessment I have communicated my name and active licensure. The patient s identity and physical location were verified at the time of this visit. Either the patient or their legal pharmacy services representative has been informed of the risks [...] Your Guide to Surgery by next session [email or web address] 2. Do not skip [...] full-liquid diet. Examples: Slim Fast Advanced Nutrition [place] Breakfast Essentials Light Start Drink mixed with [...] Bariatric Multivitamin and Calcium Citrate (total of 4894-8862 mg/day) * take calcium citrate separately from Multivitamin with iron at least 2 hours apart and 4 hours apart from additional calcium www.[email or web address] Funding - Bariatric Choice: 4 Complete Multivitamins (chewables) [...] suggested by 180 Initial weight: 295 lbs. [place] body weight is 155 lbs. Excess body weight is 140 lbs. Goal weight pre-op is 281 lbs. Protein needs are estimated at 85gm (1.2 - protein/kg IBW) Patient meets the National Institutes of Health guidelines for weight loss surgery and has [place] Insurance therefore is required to complete 0 [...] TIME: 2:25 PM documented in this encounter [facility] 09-11-2023 Telephone encounter Note Attempted to call pt, re: hypothyroid and low vitamin d levels, no answer, left vm. Tonya Senior APRN.BANK MANAGER [facility] 09-01-2023 Note HNO ID: [id number] Author: LATONIA GREENE, PhD Service: ? Author Type: Psychologist Type: Progress Notes Filed: 09/01/2023 13:22 Note Text: [facility] Progress Note 09/01/2023 Billing code: Jerel Patient did not attend, cancel, or reschedule this appointment. Provider left HIPAA compliant voicemail and MyChart message with contact information to reschedule. Latonia Greene, PhD Clinical Psychologist [facility] 09-01-2023 History of Presen t illness Narrative [facility] Progress Note 09/01/2023 Billing code: Jerel Patient did not attend, cancel, or reschedule this appointment. Provider left HIPAA compliant voicemail and MyChart message with contact information to reschedule. Latonia Greene PhD Clinical Psychologist documented in this encounter [facility] 08-20-2023 Note HNO ID: [id number] Author: TONYA SENIOR APRN.BANK MANAGER Service: ? Author Type: Nurse Practitioner Type: Progress Notes Filed: 08/20/2023 16:21 Note Text: have communicated my name and active licensure. The patient's identity and physical location were verified at the time of this visit. Either the patient or their legal pharmacy services representative has been informed of the risks and benefits of -- and alternatives to -- treatment through a remote evaluation and consents to proceed with the evaluation remotely. [employer] MEDICAL CONSULT I have communicated my name and active licensure. The patient's identity and physical location were verified at the time of this visit. Either the patient or their legal pharmacy services representative has been informed of the risks [...] HEMOGLOBIN A1C - (more content not included)... [facility] 08-20-2023 History of Presen t illness Narrative Images from the original note were not included. have communicated my name and active licensure. The patient's identity and physical location were verified at the time of this visit. Either the patient or their legal pharmacy services representative has been informed of the risks and benefits of -- and alternatives to -- treatment through a remote evaluation and consents to proceed with the evaluation remotely. [employer] MEDICAL CONSULT I have communicated my name and active licensure. The patient's identity and physical location were verified at the time of this visit. Either the patient or their legal pharmacy services representative has been informed of the risks [...] PANEL - LIPID PANEL BASIC Tonya Senior APRN.BANK MANAGER -- Recommend that she should not become [...] Obesity Medicine Visit documented in this encounter [facility] 06-13-2023 Evaluation note Encounter Date [...] 8 weeks -Handed patient self referral to [facility] bariatric surgery program -Oedbi-ad-ootz A1c December 2022 5.4%-Follow up in clinic in 8 weeksThis note was created with voice recognition software. Please excuse errors in edge banding machine offbearer. Jun, Dietary surveillance and counseling (ICD-10 - [...] for a goal of 5% weight reduction. [employer] [facility] Other 08-30-2023 Evaluation note* Encounter Date Diagnosis [...] on in the past and denies side akmqvmk-Bqgfl-dp-care A1c today 5.4%-Follow up in clinic in 4 weeksThis note was created with voice recognition software. Please excuse errors in edge banding machine offbearer. Dec, Dietary surveillance and counseling (ICD-10 - [...] premade protein drink for breakfast, by plain Azerbaij[place] yogurt and flavor yourself with cinnamon or [...] with the patient, and documenting clinical information. [employer] Other Chief complaint+Reason for visit Narrative* Chief Complaint Obesity Reason for Visit Exercise counseling Severe obesity (BMI >= 40) [facility] Work Phone: Chidf complaint+Reason for visit Narrative* Chief Complaint Pos test, Cramping, Vaginal bleeding Reason for Visit Exercise counseling Severe obesity (BMI >= 40) [facility] Work Phone: Evaluation noteNo assessment information available [facility] Work Phone: Evaluation note* Diagnosis Onset Date Resolution Status Exercise counseling acute Severe obesity (BMI >= 40) delilah kevin [facility] Work Phone: Evaluation note* Diagnosis Body mass index (BMI) of 50-59.9 in adult ([facility])- Primary Body Mass Index 50.0-59.9, adult Angel's thyroiditis Chronic lymphocytic thyroiditis High blood cholesterol Pure hypercholesterolemia [facility] Diagnosis NO SHOW- Primary documented in this encounter [facility] note* Diagnosis Obesity, Class III, BMI 40-49.9 (morbid obesity) ([facility])- Primary Morbid obesity Dietary counseling Dietary surveillance and counseling [facility] Diagnosis Vitamin D deficiency- Primary Unspecified vitamin D deficiency [facility] Diagnosis 25 weeks gestation of Second trimester state, incidental Diabetes mellitus screening Screening for diabetes mellitus size inconsistent with dates H/O premature delivery documented in this encounter [facility]* Diagnosis Third trimester state, incidental 29 weeks gestation of documented in this encounter [facility]* Diagnosis Third trimester state, incidental 31 weeks gestation of H/O premature delivery documented in this encounter [facility]* Diagnosis 33 weeks gestation of Third trimester state, incidental H/O premature delivery Thyroid disease (CMS/[facility]) Unspecified disorder of thyroid H/O pre-eclampsia in prior , currently documented in this encounter [facility]* Diagnosis Second trimester state, incidental documented in this encounter [facility]* Diagnosis 35 weeks gestation of Third trimester state, incidental documented in this encounter [facility]* Diagnosis 37 weeks gestation of Third trimester state, incidental documented in this encounter [facility]* Diagnosis Third trimester state, incidental 38 weeks gestation of documented in this encounter [facility]* Diagnosis History of pre-eclampsia in prior , currently - Primary with other poor obstetric history History of delivery, currently with history of pre-term labor Obesity affecting in second trimester, unspecified obesity type BMI 45.0-49.9, adult (CMS-HCC) Hypothyroidism affecting in second trimester 21 weeks gestation of [facility] Diagnosis Encounter for follow-up ultrasound of anatomy- Primary History of pre-eclampsia in prior , currently with other poor obstetric history History of delivery, currently with history of pre-term labor Obesity affecting in second trimester, unspecified obesity type documented [facility] this [facility]* Diagnosis 6 weeks follow-up Missed menses [facility] - [facility]* Type Description Date Surgical History adnoidectomy Surgical History gall bladder Surgical History L Fallopian tube removed Hospitalization History See Above [employer] [facility] Other Hospital Discharge instructions Additional Instructions You may take kfni-sru-lwpzfzj cough and cold medication as needed You may take qiax-prr-qsaywuv Tylenol and/or ibuprofen as needed Increase oral fluids Follow-up with family doctor as needed Return to the ER for any acute difficulty breathing high fever vomiting or any other [facility] Work Phone: Hospital Discharge instructions Additional Instructions Nothing into vagina until seen by DIRECTOR MACHINE May take Tylenol for discomfort Increase oral fluids Follow-up with DIRECTOR MACHINE Return to the ER for heavy bleeding greater than a pad an hour feeling dizzy lightheaded or any other [facility] Work Phone: Hospital Discharge instructions Additional Instructions Follow-up with your OB in the next week.[facility] Work Phone: hospital Discharge instructions Additional Instructions You were seen and evaluated in the ED for a musculoskeletal injury. It is important to treat your symptoms with RICE therapy. This consists of Resting when available, Icing the affected area, wearing Compression if applicable such as a sleeve or MELISSA-bandage, and Elevating the affected extremity. Continue to use Tylenol and other anti-inflammatories such as ibuprofen, naproxen, diclofenac, etc It is very important that you follow up with your primary care provider in the next 1-2 days unless instructed to do otherwise. If you do not have a primary care provider, you can contact the [facility] and ask about being established for primary care services. If you require specialist follow up, such as with an orthopedic physician, cornice upholsterer, urologist, or other medical specialty, you should contact the specialty clinic as soon as possible to schedule a follow up appointment. If you are established with a specialist, you can contact your preferred physician for follow up. If you are not already established with the specialist you need, you may have contact information provided to you with these discharge instructions. If you are being prescribed medications, take exactly as prescribed. Antibiotics, if prescribed, should be taken until the entire course is completed. You should not have left over antibiotics. Continue to take any previously prescribed home medications unless instructed otherwise. If you are experiencing fever or mild to moderate pain, you should first take Tylenol or ibuprofen available saof-cod-jwrxemr. Medications, if prescribed to treat pain from the emergency department, are intended to provide relief for severe pain that is not relieved by other methods of pain relief, you should use these medications cautiously as many are known to cause sedation/sleepiness, increased risk for falls, and other effects such as constipation. If your symptoms worsen please return to the ED or if you have any other concerns[facility] Work Phone: InstructionsNot on filedocumented in this encounter [facility] SystemInstructionsNot on filedocumented in this encounter [facility] SystemInstructionsNot on filedocumented in this encounter [facility] SystemReason for referral (narrative)* Diagnostic Procedure Only (Routine) - Pending Review Specialty Diagnoses / Procedures Referred By Wendy campos Referred To Contact [facility] Diagnoses Body mass index (BMI) of 50-59.9 in adult (HCC) Procedures US ABD RIGHT UPPER QUADRANT US ABDOMINAL REAL TIME W/IMAGE LIMITED Tonya Senior APRN.BANK MANAGER [id number] [facility] Referral ID Status Reason Start Date Expiration Date Visits Requested Visits Authorized [id number] Pending Review Auto-Generat ed Referral 08/20/2023 09/18/2024 1 1 * Outpatient Procedure (Routine) - Pending Review Specialty Diagnoses / Procedures Referred By Wendy campos Referred To [facility] Diagnoses Body mass index (BMI) of 50-59.9 in adult (HCC) Procedures ECG COMPLETE ECG ROUTINE ECG W/LEAST 12 LDS W/I&R Tonya Senior APRN.BANK MANAGER [address] [place] [address] [facility] [place] [address] [place] [address] Referral ID Status Reason Start Date Expiration Date Visits Requested Visits Authorized [id number] Pending Review Auto-Generat ed Referral 08/20/2023 08/19/2024 1 1 [facility] Summary Purpose Family History Mother [...] :48pm Unknown May 17, 2024 3: 30pm Chief Complaint Admit Date lt knee pain, nki October 13, 2024 1:36p m Additional Source Comments INFORMATION SOURCE (unrecogn ized section and content) DATE CREATED AUTHOR 10/31/2017 [facility] DATE CREATED AUTHOR AUTHOR'S ORGANIZ ATION 04/23/2020 [facility] DATE CREATED AUTHOR AUTHOR'S ORGANIZ ATION 08/08/2020 [employer] DATE CREATED AUTHOR AUTHOR'S ORGANIZ ATION 08/22/2020 [facility] DATE CREATED AUTHOR AUTHOR'S ORGANIZ ATION 06/11/2022 [facility] DATE CREATED AUTHOR AUTHOR'S ORGANIZ ATION 09/06/2023 [facility] DATE CREATED AUTHOR AUTHOR'S ORGANIZ ATION 10/03/2023 [facility] DATE CREATED AUTHOR AUTHOR'S ORGANIZ ATION 10/18/2023 [facility] DATE CREATED AUTHOR AUTHOR'S ORGANIZ ATION 01/20/2024 [facility] DATE CREATED AUTHOR AUTHOR'S ORGANIZ ATION 04/30/2024 [facility] DATE CREATED AUTHOR AUTHOR'S ORGANIZ ATION 07/14/2024 [facility] EPIC DATE CREATED AUTHOR AUTHOR'S ORGANIZ ATION 11/22/2024 [facility] Care Teams (unrecognized sec tion and content) Team Status: Inactive Member Role Status Dates Services Family [facility] Primary Care Provider Active Ck To PA-C Emergency Provider Active Team Status: Active Member Role Status Dates Services Family [facility] Primary Care Provider Active Team Status: Inactive Member Role Status Dates Services Family [facility] Primary Care Provider Active Marychuy Kyle NOISE ABATEMENT ENGINEER-BC Emergency Provider Active Team Status: Inactive Member [...] 2023 End: October 06, 2023 Marychuy Kyle NOISE ABATEMENT ENGINEER-BC Emergency Provider Active Start: October 06, 2023 [...] May 17, 2024 End: May 17, 2024 Team Status: Inactive Member Role Status Dates Services [facility] Primary Care Provider Active Start: October 13, 2024 End: October 13, 2024 Herbert Markham PA-C Emergency Provider Active Start: October 13, 2024 End: October 13, 2024 Goals (unrecognized section and content) Goals [...] alternate sectionNot on filedocumented as of this encounterNot on filedocumented as of this encounterNot on filedocumented as of this encounterGoals may be documented in an alternate section REASON FOR VISIT (unrecogniz ed section and content) Reason Comments New Patient Reason Comments No Show Reason Comments Patient Education Assessment 91 Reason Comments Results Reason Comments Routine Visit Reason Comments Hashimotos's Disease Hypothyroidism H/X Preeclampsia H/X PTD Reason Comments Care Pt present today for a 6 week post visit. Pt delivered on 05/31/2024 vaginally. Source Comments (unrecognize d section and content) In the event this informatio n is protected by the Federal Confidentiality of Alcohol and Drug Abuse Patient Records regulations: The Federal rules restrict any use of the information to criminally investigate or prosecute any alcohol or drug abuse patient.[facility] CenterIn the event this information is protected by the Federal Confidentiality of Alcohol and Drug Abuse Patient Records regulations: The Federal rules restrict any use of the information to criminally investigate or prosecute any alcohol or drug abuse patient.[facility] CenterIn the event this information is protected by the Federal Confidentiality of Alcohol and Drug Abuse Patient Records regulations: The Federal rules restrict any use of the information to criminally investigate or prosecute any alcohol or drug abuse patient.[facility] CenterIn the event this information is protected by the Federal Confidentiality of Alcohol and Drug Abuse Patient Records regulations: The Federal rules restrict any use of the information to criminally investigate or prosecute any alcohol or drug abuse patient.[facility] CenterIn the event this information is protected by the Federal Confidentiality of Alcohol and Drug Abuse Patient Records regulations: The Federal rules restrict any use of the information to criminally investigate or prosecute any alcohol or drug abuse patient.[facility] CenterIn the event this information is protected by the Federal Confidentiality of Alcohol and Drug Abuse Patient Records regulations: The Federal rules restrict any use of the information to criminally investigate or prosecute any alcohol or drug abuse patient.[facility] FOR RECORDS PERTAINING TO PATIENTS [...] BE BASED ON THE PRIMARY CLINICAL RECORDS. [employer] [facility]. provides no warranty or guarantee of the accuracy or completeness of information in this document.
[2025-01-03 11:09] LABS: Age Gdln ACOG Testing Note (.); IGP, Aptima HPV, rfx 16/18,45 Note (.)
== END 2024-12-29 20:03 | disposition home or self-care (01) ==
LOC: LAB 20:02
PROVIDERS: Visit Provider Obstetrics & Gynecology
DX: Z01.419 Encounter for gynecological examination (general) (routine) without abnormal findings (principal)
CPT/HCPCS: 87624; 88175